=== PATIENT | male | born 1955 | race Caucasian/White ===

== ENCOUNTER 2016-07-15 12:21 | Emergency (ER) | payer MEDICARE, MEDICAID ==
[~2016-07-15] VITALS: Ht 177.8 cm; Wt 77.1 kg
[~2016-07-15 12:21] MED LIST: ACETAMINOPHEN325 M1 ORAL; ALLOPURINOL100 M1 ORAL; AMBIEN5 MG ORAL; ASPIRIN81 MG ORAL; ATORVASTATIN CA10 MG ORAL; AVAPRO150 MG ORAL; AZATHIOPRINE50 MG PO; BACTROBAN 2% OI15 GM TOPIC; BICITRA30 ML ORAL; BICITRA30 ML PO; COLACE100 MG ORAL; COUMADIN4 MG ORAL; COUMADIN6 MG ORAL; CYMBALTA20 MG ORAL; CYMBALTA30 MG ORAL; CYTRA-2 ORAL S473 ML PO; DOCUSATE SODIU100 MG ORAL; DOXYCYCLINE HY100 M6 PO; DUONEB 0.5 MG-33 ML INH; DUONEB 0.5-3(2.53 ML HHN; EPOETIN ALFA SUBQ; EPOGEN10000 UNIT SUBQ; FLAGYL500 MG ORAL; FLOMAX0.4 MG ORAL; GUAIFENESI100 MG/5 M PO; HEPARIN1000 UNIT/ SUBQ; HUMALOG100 UNIT/4 SUBQ; IMURAN50 MG ORAL; LANTUS SOL100 UNIT/1 SUBQ; LANTUS5 UNITS SUBQ; LEVAQUIN500 MG ORAL; LEVEMIR FL100 UNIT/1 SUBQ; LIPITOR10 MG ORAL; LOPRESSOR25 M1 ORAL; METOPROLOL SUCC50 MG ORAL; METOPROLOL TART25 MG ORAL; METOPROLOL TART50 MG ORAL; MIRALAX17 GM ORAL; NEPHROCAPS QT1 EACH PO; NORVASC5 MG ORAL; NOVOLOG100 UNIT/3 SUBQ; NOVOLOG100 UNIT/4 SUBQ; NOVOLOG100 UNITS1 SUBQ; PROCRIT10000 UNIT SUBQ; PROTONIX40 MG ORAL; QUETIAPINE FUMA25 MG ORAL; RENVELA0.8 GM ORAL; RENVELA800 MG ORAL; ROBITUSSIN DM5 ML PO; SEROQUEL25 MG ORAL; SIMVASTATIN40 MG ORAL; TOPROL XL50 MG ORAL; TYLENOL EXTRA500 MG ORAL; TYLENOL100 MG/11 PO; TYLENOL650 MG/20. ORAL; VIBRAMYCIN100 MG ORAL; VITAMIN D1000 UNI1 ORAL; VITAMIN D35000 UNI2 PO; VITAMIN D350000 UNIT PO; WARFARIN SODIUM1 MG ORAL; WARFARIN SODIUM3 MG ORAL; WARFARIN SODIUM4 MG ORAL; Warfarin RX monitoring MISC; ZOFRAN4 M1 ORAL; ZOFRAN4 MG IV; ZOFRAN4 MG ORAL
[2016-07-15] MEDS ORDERED: ATORVASTATIN CA10 MG ORAL (13:17)
[2016-07-15] MEDS ORDERED: VITAMIN D400 INTLU ORAL (13:17)
[2016-07-15] MEDS ORDERED: FERROUS SULFAT325 MG ORAL (13:17)
[2016-07-15] MEDS ORDERED: AZATHIOPRINE50 MG PO (13:17)
[2016-07-15 13:23] LABS: BASOPHILS % (AUTO) 0.9 % (0.0-2.0); EOSINOPHILS % (AUTO) 3.4 % (0.0-3.0); LYMPHOCYTES % (AUTO) 23.3 % (20.0-45.0); MEAN CORPUSCULAR HEMOGLOBIN 32.1 PG (27.0-31.0); MEAN CORPUSCULAR HGB CONC 31.7 G/DL (32.0-36.0); MEAN CORPUSCULAR VOLUME 101 FL (80-99); MEAN PLATELET VOLUME 6.8 FL (6.5-10.1); MONOCYTES % (AUTO) 7.9 % (1.0-10.0); NEUTROPHILS % (AUTO) 64.5 % (45.0-75.0); PLATELET COUNT 183 K/UL (150-450); RED BLOOD COUNT 3.05 M/UL (4.70-6.10); RED CELL DISTRIBUTION WIDTH 14.5 % (11.6-14.8); WHITE BLOOD COUNT 7.3 K/UL (4.8-10.8)
[2016-07-15 13:34] LABS: TROPONIN I < 0.30 ng/mL (<=0.30)
[2016-07-15 13:37] LABS: ALANINE AMINOTRANSFERASE 13 U/L (3-41); ALBUMIN/GLOBULIN RATIO 1.2 (1.0-2.7); ANION GAP 16 (5-15); ASPARTATE AMINO TRANSFERASE 14 U/L (5-40); CALCIUM 9.1 mg/dL (8.6-10.2); CARBON DIOXIDE 23 mEQ/L (20-30); CHLORIDE 103 mEQ/L (98-107); CREATININE 4.4 mg/dL (0.7-1.2); GLOMERULAR FILTRATION RATE 13.7 mL/min (>60); HEMOLYSIS 6; POTASSIUM 4.7 mEQ/L (3.4-4.9); SODIUM 142 mEQ/L (135-145); TOTAL PROTEIN 6.4 g/dL (6.6-8.7)
[2016-07-15 13:48] LABS: CKMB 1.7 ng/mL (< 6.7)
[2016-07-15 13:56] VITALS: BP 153/81
[2016-07-15 14:32] LABS: PROTHROMBIN TIME > 100.0 SEC (9.30-11.50)
[2016-07-15 14:34] LABS: INR > 10.0 (0.9-1.1); PARTIAL THROMBOPLASTIN TIME 37 SEC (23-33)
[2016-07-15 17:15] VITALS: BP 129/76
--- NOTE | 2016-07-16 02:07 | Emergency Room Report ---
History of Present Illness General Chief Complaint: Abnormal Labs Source: Patient, EMS Present Illness HPI Patient sent in for evaluation of kidney function (based on labs) at [facility]. He denies all sy. Post renal failure with dialysis transiently (25 years ago) and then renal transplant. No problems with renal transplant. Has elevated creat. Piror insulin OD. Diabetes. L eye implant. Allergies: Coded Allergies: CEFEPIME (Verified Allergy, Intermediate, Rash, 01/23/13) Uncoded Allergies: CEFEPHINE (Allergy, Mild, 04/11/15) Patient History Past Medical History: see triage record Social History: Denies: smoking Social History Narrative b and C Reviewed Nursing Documentation: PMH: Agreed, PSxH: Agreed Nursing Documentation-PMH Hx Cardiac Problems: Yes - NSTEMI x3, CAD Hx Hypertension: Yes Hx Pacemaker: No Hx Asthma: Yes Hx Diabetes: Yes - DKA Hx Cancer: No Hx Gastrointestinal Problems: Yes - Gastritis Hx Cerebrovascular Accident: No Hx Transient Ischemic Attacks: No Hx Dementia: No Hx Alzheimer's Disease: No Hx Parkinson's Disease: No Hx Meningitis: No Hx Encephalitis: Yes - 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 ATTEMPT Hx Seizures: No Hx Epilepsy: No Hx Multiple Sclerosis: No Hx Cerebral Palsy: No Hx Amyotrophic Lat Sclerosis: No Hx Guillian-[place] Syndrome: No Hx Paralysis: No Hx Peripheral Neuropathy: No Hx Spinal Cord Injury: No Hx Head Trauma: No Hx Traumatic Brain Injury: No Hx Memory Loss: No Hx Concentration Difficulty: No Hx Speech Problem: No Hx Tremors: No Hx Vertigo: No Hx Dizziness: Yes Hx Syncope: No Hx Headaches: No Hx Aphasia: No Hx Dysphasia: No Hx Numbness: No Hx Weakness: No Hx Fatigue: No Hx Neurologic Surgery: No Hx Brain Shunt: No Review of Systems All Other Systems: negative except mentioned in HPI Physical Exam Vital Signs Date Time Temp Pulse Resp B/P Pulse Ox O2 Delivery O2 Flow Rate FiO2 07/15/16 12:21 97.5 63 16 153/81 100 Room Air Sp02 EP Interpretation: reviewed, normal General Appearance: well appearing, no apparent distress Head: normocephalic, atraumatic Eyes: left eye other - implant ENT: hearing grossly normal, normal voice Neck: full range of motion, supple Respiratory: no respiratory distress, speaking full sentences Gastrointestinal: normal inspection, normal bowel sounds, non tender, soft, non -distended, other - I cannot feel kidney (also no pain) Musculoskeletal: gait/station normal, normal range of motion, no calf tenderness Neurologic: alert - grossly normal (with glass eye L), normal gait Psychiatric: mood/affect normal Skin: no rash Medical Decision Making Diagnostic Impression: Primary Impression: Renal insufficiency Additional Impressions: History of simultaneous kidney and pancreas transplant Excessive anticoagulation ER Course Patient asymptomatic sent for eval of renal function. Labs ordered. Renal function is stable and unchanged for many years. Patient stable for outpatient evaluation and treatment. INR returned after patient discharged. H/H slightly less than previous. Will contact PMD to have repeat INR and coumadin held. Contacted [facility] to hold coumadin. Laboratory Tests Test 07/15/16 13:00 White Blood Count 7.3 K/UL (4.8-10.8) Red Blood Count 3.05 M/UL (4.70-6.10) L Hemoglobin 9.8 G/DL (14.2-18.0) L Hematocrit 30.9 % (42.0-52.0) L Mean Corpuscular Volume 101 FL (80-99) H Mean Corpuscular Hemoglobin 32.1 PG (27.0-31.0) H Mean Corpuscular Hemoglobin Concent 31.7 G/DL (32.0-36.0) L Red Cell Distribution Width 14.5 % (11.6-14.8) Platelet Count 183 K/UL (150-450) Mean Platelet Volume 6.8 FL (6.5-10.1) Neutrophils (%) (Auto) 64.5 % (45.0-75.0) Lymphocytes (%) (Auto) 23.3 % (20.0-45.0) Monocytes (%) (Auto) 7.9 % (1.0-10.0) Eosinophils (%) (Auto) 3.4 % (0.0-3.0) H Basophils (%) (Auto) 0.9 % (0.0-2.0) Prothrombin Time > 100.0 SEC (9.30-11.50) H Prothrombin Time INR > 10.0 (0.9-1.1) *H PTT 37 SEC (23-33) H Sodium Level 142 mEQ/L (135-145) Potassium Level 4.7 mEQ/L (3.4-4.9) Chloride Level 103 mEQ/L (98-107) Carbon Dioxide Level 23 mEQ/L (20-30) Anion Gap 16 (5-15) H Blood Urea Nitrogen 76 mg/dL (7-23) H Creatinine 4.4 mg/dL (0.7-1.2) H Estimate Glomerular Filtration Rate 13.7 mL/min (>60) Glucose Level 236 mg/dL (74-106) H Calcium Level 9.1 mg/dL (8.6-10.2) Total Bilirubin < 0.2 mg/dL (0.0-1.2) Aspartate Amino Transferase (AST) 14 U/L (5-40) Alanine Aminotransferase (ALT) 13 U/L (3-41) Alkaline Phosphatase 84 U/L (40-129) Total Creatine Kinase 80 U/L (38-174) Creatine Kinase MB 1.7 ng/mL (< 6.7) Creatine Kinase MB Relative Index 2.1 Troponin I < 0.30 ng/mL (<=0.30) Pro-B-Type Natriuretic Peptide 445 pg/mL (0-125) H Total Protein 6.4 g/dL (6.6-8.7) L Albumin 3.6 g/dL (3.5-5.2) Globulin 2.8 g/dL Albumin/Globulin Ratio 1.2 (1.0-2.7) EKG Diagnostic Results Rate: normal Rhythm: NSR ST Segments: no acute changes Rhythm Strip Diag. Results EP Interpretation: yes Rhythm: NSR, no PVC's, no ectopy Chest X-Ray Diagnostic Results EP Interpretation: Yes Findings: no consolidation, no effusion, no pneumothorax, no acute cardiopulmonary disease Number of Views: 1 Last Vital Signs Date Time Temp Pulse Resp B/P Pulse Ox O2 Delivery O2 Flow Rate FiO2 07/15/16 17:15 97.5 75 14 129/76 100 Room Air Status: improved Disposition: ASSISTED LIVING Condition: Stable Referrals: Christopher Rosado MD (PCP) Patient Instructions: Chronic Kidney Disease Additional Instructions: Follow up with your kidney doctors. William Arroyo M.D. Jul 16, 2016 02:07
--- NOTE | 2016-07-19 10:32 | Diagnostic Imaging Report ---
Indication: Chest pain Technique: One view of the chest Comparison: 04/11/2015 Findings: Interim placement left arm PICC, tip projecting at the level of the mid superior vena cava. Lungs and pleural spaces remain clear. Heart size is normal Impression: No acute process PICC
--- NOTE | 2016-07-19 15:07 | Cardiology Report ---
APPROVED REPORT EKG Measurement Heart [id number] Normal sinus rhythm Left axis deviation Abnormal ECG
== END 2016-07-15 17:15 | disposition home or self-care (01) ==
LOC: EDBD 12:21 → EDUNIT# 12:21 → EMR 13:20
DX: N28.9 Disorder of kidney and ureter, unspecified (principal); R79.1 Abnormal coagulation profile; Z94.0 Kidney transplant status; Z94.83 Pancreas transplant status; I10 Essential (primary) hypertension; J45.909 Unspecified asthma, uncomplicated; E11.9 Type 2 diabetes mellitus without complications
CPT/HCPCS: 36415; 71010; 80053; 82550; 82553; 83880; 84484; 85025; 85610; 85730; 93005; 99283

== ENCOUNTER → 2016-08-25 | Outpatient (CLI) | payer MEDICARE, MEDICAID ==
[~2016-08-25] VITALS: Ht 30.5 cm; Wt 0.5 kg
[~2016-08-25] MED LIST changes: +FERROUS SULFAT325 MG ORAL; +Heparin 2000 units/Ns 1000ml INJ ONE; +Lidocaine 1% Plain 30 ml INJ ONE; +Sodium Bicarbonate 8.4% 50ml Inj IV ONE; +VITAMIN D400 INTLU ORAL
--- NOTE | 2016-08-26 13:30 | Diagnostic Imaging Report ---
Indications: Long-term central IV access required for intravenous therapy Technique: The procedure indications, risks, and alternatives were explained to the patient who understands and gives consent to proceed. Strict aseptic technique was utilized, including hand washing, use of hat and mask, use of sterile gown and gloves, sterile ultrasound gel and probe cover, prepping of right arm skin with 2% chlorhexidine solution, and application of full body sterile barrier over this area. Skin and subcutaneous soft tissues were infiltrated with 1% lidocaine and sodium bicarbonate. A small dermatotomy was made, through which the patent adequate size right basilic vein was punctured percutaneously under direct sonographic guidance with a 21-gauge needle. Exchange was made over a 0.018 inch guidewire for a 5 [place] peel-away sheath. A Biletu-PICC 5 [place] dual lumen central venous catheter was cut to appropriate length, then advanced through the sheath over the guidewire under direct fluoroscopic guidance into the right subclavian vein, central to which it could not be advanced. Nonionic iodine contrast was injected through the second catheter port and digital subtraction images of the right subclavian and brachiocephalic veins obtained. A second 0.018 inch guidewire was advanced through the second catheter port under direct fluoroscopic guidance into the superior vena cava, over which the catheter was successfully advanced to the cavoatrial junction. Guidewires and sheath were removed. Both catheter ports were aspirated, then flushed with heparinized saline. Final spot film image was obtained. Catheter was secured the skin with adhesive dressing. Patient tolerated procedure well without immediate complications. Total fluoroscopy time: 1.3 minutes. Dose-area product: 71 dGy-cm2 Findings: Right subclavian and radiocephalic veins, superior vena cava patent and apparently normal in caliber without intraluminal filling defect, though there is moderate collateral venous opacification emanating from the right subclavian vein. Final image demonstrates tip of the central venous catheter at the level of superior vena cava-right atrial junction, ordering cm in from the skin. Both ports aspirate and flush freely. IMPRESSION: Patent right upper extremity central veins without obvious flow-limiting abnormality Placement of peripherally inserted central venous catheter via right basilic vein, working well.
== END | disposition home or self-care (01) ==
LOC: RAD 13:34
DX: Z79.899 Other long term (current) drug therapy (principal)
CPT/HCPCS: 36569; 75820; 76937; J1644; J2001; J3490

== ENCOUNTER 2016-12-25 09:17 | Emergency (ER) | payer MEDICARE, MEDICAID ==
[~2016-12-25] VITALS: Ht 175.3 cm; Wt 83.9 kg
[~2016-12-25 09:17] MED LIST changes: -Heparin 2000 units/Ns 1000ml INJ ONE; -Lidocaine 1% Plain 30 ml INJ ONE; -Sodium Bicarbonate 8.4% 50ml Inj IV ONE
--- NOTE | 2016-12-25 10:24 | Emergency Room Report ---
History of Present Illness General Chief Complaint: Abdominal Pain Source: Patient, EMS Present Illness HPI Patient presents from a long-term facility. Yesterday he had a fall at a doctor's appointment when he states he tripped and fell onto his right side. He states that yesterday he felt fine after the fall. However, when he woke up today he had pain on his right flank area. He denies head injury or trauma. He denies headache or neck pain. He denies chest pain or shortness of breath. He has no other complaints. Allergies: Coded Allergies: CEFEPIME (Verified Allergy, Intermediate, Rash, 01/23/13) Patient History Past Medical History: see triage record, old chart reviewed, DM, HTN, PR, CAD, psych hx, renal disease, other Past Surgical History: other - Hx of renal transplant, chronic anemia, chronic DVT Social History: Denies: alcohol use, drug use, smoking Reviewed Nursing Documentation: PMH: Agreed, PSxH: Agreed Nursing Documentation-PMH Hx Cardiac Problems: Yes - NSTEMI x3, CAD Hx Hypertension: Yes Hx Pacemaker: No Hx Asthma: Yes Hx Diabetes: Yes - DKA Hx Cancer: No Hx Gastrointestinal Problems: Yes - Gastritis Hx Cerebrovascular Accident: No Hx Transient Ischemic Attacks: No Hx Dementia: No Hx Alzheimer's Disease: No Hx Parkinson's Disease: No Hx Meningitis: No Hx Encephalitis: Yes - 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 ATTEMPT Hx Seizures: No Hx Epilepsy: No Hx Multiple Sclerosis: No Hx Cerebral Palsy: No Hx Amyotrophic Lat Sclerosis: No Hx Guillian-[place] Syndrome: No Hx Paralysis: No Hx Peripheral Neuropathy: No Hx Spinal Cord Injury: No Hx Head Trauma: No Hx Traumatic Brain Injury: No Hx Memory Loss: No Hx Concentration Difficulty: No Hx Speech Problem: No Hx Tremors: No Hx Vertigo: No Hx Dizziness: Yes Hx Syncope: No Hx Headaches: No Hx Aphasia: No Hx Dysphasia: No Hx Numbness: No Hx Weakness: No Hx Fatigue: No Hx Neurologic Surgery: No Hx Brain Shunt: No Review of Systems All Other Systems: negative except mentioned in HPI Physical Exam Vital Signs Date Time Temp Pulse Resp B/P Pulse Ox O2 Delivery O2 Flow Rate FiO2 12/25/16 09:19 97.3 60 18 162/81 97 Room Air Sp02 EP Interpretation: reviewed, normal General Appearance: no apparent distress, alert, GCS 15, non-toxic Head: normocephalic, atraumatic ENT: hearing grossly normal, normal pharynx, no angioedema, normal voice Neck: full range of motion, supple/symm/no masses Respiratory: lungs clear, normal breath sounds, no respiratory distress, no retraction, no accessory muscle use, speaking full sentences, other - TTP along the R. lower rib cage and flank. 6cm x 4cm area of ecchymosis on L. flank mid- axillary distally over ribcage. Cardiovascular #1: regular rate, rhythm, no edema Gastrointestinal: normal bowel sounds, non tender, soft, non-distended, no guarding, no rebound Rectal: deferred Musculoskeletal: back normal, gait/station normal, normal range of motion, non- tender Neurologic: alert, oriented x3, responsive, motor strength/tone normal, sensory intact, speech normal Psychiatric: judgement/insight normal, memory normal, mood/affect normal, no suicidal/homicidal ideation Skin: no rash, warm/dry, well hydrated, other - See RESP exam Medical Decision Making Diagnostic Impression: Primary Impression: Fall Additional Impressions: Chronic renal failure Multiple contusions of trunk ER Course This patient presented from a long-term facility secondary to flank pain after a fall. The patient is anticoagulated on Coumadin and so I felt I should obtain a CT of the abdomen and pelvis to rule out intra-abdominal injury. CT of the abdomen and pelvis was negative. Also negative was the head CT. Of note , the CT was limited due to the fact that the patient has chronic renal failure and is unable to give IV contrast at this time he. At this time, I did not identify an emergency medical condition. The patient is returned to the long-term facility. Labs Test 12/25/16 10:50 12/25/16 14:15 White Blood Count 7.1 K/UL (4.8-10.8) Red Blood Count 3.15 M/UL (4.70-6.10) Hemoglobin 10.0 G/DL (14.2-18.0) Hematocrit 30.2 % (42.0-52.0) Mean Corpuscular Volume 96 FL (80-99) Mean Corpuscular Hemoglobin 31.8 PG (27.0-31.0) Mean Corpuscular Hemoglobin Concent 33.3 G/DL (32.0-36.0) Red Cell Distribution Width 13.5 % (11.6-14.8) Platelet Count 167 K/UL (150-450) Mean Platelet Volume 6.6 FL (6.5-10.1) Neutrophils (%) (Auto) 75.9 % (45.0-75.0) Lymphocytes (%) (Auto) 16.0 % (20.0-45.0) Monocytes (%) (Auto) 6.5 % (1.0-10.0) Eosinophils (%) (Auto) 1.1 % (0.0-3.0) Basophils (%) (Auto) 0.4 % (0.0-2.0) Prothrombin Time 24.2 SEC (9.30-11.50) Prothromb Time International Ratio 2.3 (0.9-1.1) Activated Partial Thromboplast Time 46 SEC (23-33) Sodium Level 134 mEQ/L (135-145) Potassium Level 5.5 mEQ/L (3.4-4.9) 4.8 mEQ/L (3.4-4.9) Chloride Level 98 mEQ/L (98-107) Carbon Dioxide Level 19 mEQ/L (20-30) Anion Gap 17 (5-15) Blood Urea Nitrogen 72 mg/dL (7-23) Creatinine 4.5 mg/dL (0.7-1.2) Estimat Glomerular Filtration Rate 13.3 mL/min (>60) Glucose Level 352 mg/dL (74-106) Calcium Level 9.0 mg/dL (8.6-10.2) Total Bilirubin 0.3 mg/dL (0.0-1.2) Aspartate Amino Transf (AST/SGOT) 16 U/L (5-40) Alanine Aminotransferase (ALT/SGPT) 12 U/L (3-41) Alkaline Phosphatase 84 U/L (40-129) Total Protein 6.5 g/dL (6.6-8.7) Albumin 3.7 g/dL (3.5-5.2) Globulin 2.8 g/dL Albumin/Globulin Ratio 1.3 (1.0-2.7) EKG Diagnostic Results Rate: normal Rhythm: NSR ST Segments: no acute changes Other Impression LAFB Rhythm Strip Diag. Results EP Interpretation: yes Rate: 60's Rhythm: NSR, no PVC's, no ectopy CT/MRI/US Diagnostic Results CT/MRI/US Diagnostic Results : Imaging Test Ordered: CT abd/pelvis, CT head Impression CT of the abdomen and pelvis: No acute findings. See official report. CT of the head: No acute findings. See official report. Last Vital Signs Date Time Temp Pulse Resp B/P Pulse Ox O2 Delivery O2 Flow Rate FiO2 12/25/16 09:19 97.3 60 18 162/81 97 Room Air Disposition: HOME, SELF-CARE Condition: Stable Referrals: Christopher Rosado MD (PCP) MAIN MCNEAL D.O. Dec 25, 2016 10:24
[2016-12-25 11:22] LABS: BASOPHILS % (AUTO) 0.4 % (0.0-2.0); EOSINOPHILS % (AUTO) 1.1 % (0.0-3.0); MEAN CORPUSCULAR HEMOGLOBIN 31.8 PG (27.0-31.0); MEAN CORPUSCULAR HGB CONC 33.3 G/DL (32.0-36.0); MEAN CORPUSCULAR VOLUME 96 FL (80-99); MEAN PLATELET VOLUME 6.6 FL (6.5-10.1); MONOCYTES % (AUTO) 6.5 % (1.0-10.0); NEUTROPHILS % (AUTO) 75.9 % (45.0-75.0); PLATELET COUNT 167 K/UL (150-450); RED BLOOD COUNT 3.15 M/UL (4.70-6.10); RED CELL DISTRIBUTION WIDTH 13.5 % (11.6-14.8); WHITE BLOOD COUNT 7.1 K/UL (4.8-10.8)
[2016-12-25 11:28] LABS: INR 2.3 (0.9-1.1); PROTHROMBIN TIME 24.2 SEC (9.30-11.50)
[2016-12-25 12:56] LABS: ALBUMIN/GLOBULIN RATIO 1.3 (1.0-2.7); CREATININE 4.5 mg/dL (0.7-1.2); GLOMERULAR FILTRATION RATE 13.3 mL/min (>60); POTASSIUM 5.5 mEQ/L (3.4-4.9); TOTAL PROTEIN 6.5 g/dL (6.6-8.7)
[2016-12-25 13:26] VITALS: BP 148/68
[2016-12-25 16:26] VITALS: BP 152/60
[2016-12-25 19:15] VITALS: BP 136/67
[2016-12-25 20:00] VITALS: BP 170/91
== END 2016-12-25 20:00 | disposition home or self-care (01) ==
LOC: EDUNIT# 09:17 → EDBD 09:17 → EMR 09:35 → EDBEDREQ 14:57 → CANBEDREQ 15:38 → EMR 20:00
DX: S30.1XXA Contusion of abdominal wall, initial encounter (principal); S20.211A Contusion of right front wall of thorax, initial encounter; S40.022A Contusion of left upper arm, initial encounter; W01.0XXA Fall on same level from slipping, tripping and stumbling without subsequent striking against object, initial encounter; Y92.89 Other specified places as the place of occurrence of the external cause; I12.9 Hypertensive chronic kidney disease with stage 1 through stage 4 chronic kidney disease, or unspecified chronic kidney disease; N18.9 Chronic kidney disease, unspecified; E11.9 Type 2 diabetes mellitus without complications; I25.10 Atherosclerotic heart disease of native coronary artery without angina pectoris; I25.2 Old myocardial infarction; Z86.718 Personal history of other venous thrombosis and embolism; J45.909 Unspecified asthma, uncomplicated; Z79.01 Long term (current) use of anticoagulants
CPT/HCPCS: 36415; 70450; 74176; 80053; 84132; 85025; 85610; 85730; 93005; 96374

== ENCOUNTER 2017-04-08 23:48 | Emergency (ER) | payer MEDICAID, MEDICARE ==
[~2017-04-08] VITALS: Ht 175.3 cm; Wt 90.7 kg
--- NOTE | 2017-04-09 00:51 | Emergency Room Report ---
History of Present Illness General Chief Complaint: Abnormal Labs Source: Patient, EMS Present Illness HPI 62-year-old male coming from nursing facility, history of diabetes, COPD, hypertension, presenting with low blood sugar Patient states that he was given his insulin this evening, [facility] states that his BGM was noted to be 33, he was given 1 amp D50, was then 150 in the field. Here in the ED patient's blood sugar was 238 Patient not complaining of any chest pain shortness of breath dizziness headache nausea vomiting abdominal pain Allergies: Coded Allergies: CEFEPIME (Verified Allergy, Intermediate, Rash, 01/23/13) Patient History Past Medical History: see triage record Past Surgical History: none Pertinent Family History: none Reviewed Nursing Documentation: PMH: Agreed, PSxH: Agreed Nursing Documentation-PMH Hx Cardiac Problems: Yes - NSTEMI x3, CAD Hx Hypertension: Yes Hx Pacemaker: No Hx Asthma: Yes Hx Diabetes: Yes - DKA Hx Cancer: No Hx Gastrointestinal Problems: Yes - Gastritis Hx Cerebrovascular Accident: No Hx Transient Ischemic Attacks: No Hx Dementia: No Hx Alzheimer's Disease: No Hx Parkinson's Disease: No Hx Meningitis: No Hx Encephalitis: Yes - 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 ATTEMPT Hx Seizures: No Hx Epilepsy: No Hx Multiple Sclerosis: No Hx Cerebral Palsy: No Hx Amyotrophic Lat Sclerosis: No Hx Guillian-[place] Syndrome: No Hx Paralysis: No Hx Peripheral Neuropathy: No Hx Spinal Cord Injury: No Hx Head Trauma: No Hx Traumatic Brain Injury: No Hx Memory Loss: No Hx Concentration Difficulty: No Hx Speech Problem: No Hx Tremors: No Hx Vertigo: No Hx Dizziness: Yes Hx Syncope: No Hx Headaches: No Hx Aphasia: No Hx Dysphasia: No Hx Numbness: No Hx Weakness: No Hx Fatigue: No Hx Neurologic Surgery: No Hx Brain Shunt: No Review of Systems All Other Systems: negative except mentioned in HPI Physical Exam Vital Signs Date Time Temp Pulse Resp B/P (MAP) Pulse Ox O2 Delivery O2 Flow Rate FiO2 04/09/17 00:02 97.3 60 20 160/81 99 Room Air Sp02 EP Interpretation: reviewed, normal General Appearance: normal inspection, well appearing, no apparent distress, alert, GCS 15, non-toxic Head: normocephalic, atraumatic Eyes: bilateral eye normal inspection, bilateral eye PERRL, bilateral eye EOMI ENT: normal ENT inspection, normal pharynx, normal voice, moist mucus membranes Neck: normal inspection, full range of motion, supple Respiratory: normal inspection, lungs clear, normal breath sounds, no respiratory distress, no retraction, no wheezing, speaking full sentences, chest symmetrical Cardiovascular #1: normal inspection, regular rate, rhythm, no edema, normal capillary refill Cardiovascular #2: 2+ radial (R), 2+ radial (L) Gastrointestinal: normal inspection, non tender, soft, non-distended, no guarding Genitourinary: no CVA tenderness Musculoskeletal: normal inspection, back normal, normal range of motion, non- tender, other - R sided picc line Neurologic: normal inspection, alert, oriented x3, responsive, motor strength/ tone normal, sensory intact, normal gait, speech normal Psychiatric: normal inspection, judgement/insight normal, memory normal Skin: normal inspection, normal color, no rash, warm/dry, well hydrated, normal turgor Medical Decision Making Diagnostic Impression: Primary Impression: Hypoglycemia ER Course 62-year-old male with hypoglycemia Noted to be normal upon arrival to the emergency room Plan: Serial Accu-Cheks Anticipate discharge as patient appears clinically well no complaints ER course: accucheck >200 x 2 times in ED no complaints in ED VSS NAD will dc back to snf Disposition: Patient is to be discharged to SNF Patient is instructed to follow up with their primary care doctor within 5 days. Strict return precautions discussed with patient such as fever, chills, worsening/severe pain, nausea, vomiting, which may indicate severe illness. Patient verbalizes understanding and agrees with plan. Please note that this Emergency Department Report was dictated using [email or web address] cleaner technology software, occasionally this can lead to erroneous entry secondary to interpretation by the dictation equipment Rhythm Strip Diag. Results EP Interpretation: yes Rate: 63 Rhythm: NSR, no PVC's, no ectopy Last Vital Signs Date Time Temp Pulse Resp B/P (MAP) Pulse Ox O2 Delivery O2 Flow Rate FiO2 04/09/17 00:02 97.3 60 20 160/81 99 Room Air Disposition: XFER SNF Condition: Improved Referrals: Christopher Rosado MD (PCP) Emerson Buenrostro M.D. Apr 09, 2017 00:51
[2017-04-09 05:04] VITALS: BP 135/91
== END 2017-04-09 05:18 ==
LOC: EDBD 23:48 → EMR 04-09 00:23
DX: E11.649 Type 2 diabetes mellitus with hypoglycemia without coma (principal); Z79.4 Long term (current) use of insulin; E13.10 Other specified diabetes mellitus with ketoacidosis without coma; I25.10 Atherosclerotic heart disease of native coronary artery without angina pectoris; I10 Essential (primary) hypertension; J45.909 Unspecified asthma, uncomplicated; K29.70 Gastritis, unspecified, without bleeding; G93.40 Encephalopathy, unspecified; R42 Dizziness and giddiness
CPT/HCPCS: 82962; 99283

== ENCOUNTER 2017-04-09 11:42 | Emergency (ER) | payer MEDICARE ==
[~2017-04-09] VITALS: Ht 180.3 cm; Wt 77.1 kg
[2017-04-09 11:53] VITALS: BP 154/76
--- NOTE | 2017-04-09 12:31 | Diagnostic Imaging Report ---
Indication: Chest pain Technique: One view of the chest Comparison: 07/15/2016 Findings: The lungs and pleural spaces are clear. Heart size is normal. There is a right arm catheter, tip at the cavoatrial junction. There is mild central bronchial wall thickening. Impression: No acute process
[2017-04-09 12:39] LABS: BASOPHILS % (AUTO) 0.8 % (0.0-2.0); EOSINOPHILS % (AUTO) 2.4 % (0.0-3.0); LYMPHOCYTES % (AUTO) 20.5 % (20.0-45.0); MEAN CORPUSCULAR HEMOGLOBIN 31.5 PG (27.0-31.0); MEAN CORPUSCULAR HGB CONC 32.6 G/DL (32.0-36.0); MEAN CORPUSCULAR VOLUME 97 FL (80-99); MEAN PLATELET VOLUME 7.3 FL (6.5-10.1); MONOCYTES % (AUTO) 8.3 % (1.0-10.0); PLATELET COUNT 204 K/UL (150-450); RED BLOOD COUNT 3.34 M/UL (4.70-6.10); RED CELL DISTRIBUTION WIDTH 13.4 % (11.6-14.8); WHITE BLOOD COUNT 9.3 K/UL (4.8-10.8)
[2017-04-09 12:51] LABS: ALBUMIN/GLOBULIN RATIO 1.4 (1.0-2.7); CALCIUM 8.9 mg/dL (8.6-10.2); CREATININE 4.4 mg/dL (0.7-1.2); GLOMERULAR FILTRATION RATE 13.7 mL/min (>60); POTASSIUM 4.3 mEQ/L (3.4-4.9); TOTAL PROTEIN 6.5 g/dL (6.6-8.7)
--- NOTE | 2017-04-09 13:12 | Emergency Room Report ---
History of Present Illness General Chief Complaint: Abnormal Labs Source: Patient, Medical Record, EMS, PMD Present Illness HPI [id number] sent from SNF for elevated glucose Per Dr Rosado was >400 but patient endorses he just had a "big breakfast." Patient has no complaints Denies abd pain, nausea/vomiting, chest pain, SOB, fever/chills Patient was JUST discharged from ED 12 hours prior after being sent for LOW blood sugar. Was allegedly 30s. Had multiple checks in 200s level in ED during last night's stay and then DC back to SNF Allergies: Coded Allergies: CEFEPIME (Verified Allergy, Intermediate, Rash, 01/23/13) Patient History Past Medical History: DM Past Surgical History: none Pertinent Family History: none Immunizations: UTD Reviewed Nursing Documentation: PMH: Agreed, PSxH: Agreed Nursing Documentation-PMH Hx Cardiac Problems: Yes - NSTEMI x3, CAD Hx Hypertension: Yes Hx Pacemaker: No Hx Asthma: Yes Hx Diabetes: Yes - DKA Hx Cancer: No Hx Gastrointestinal Problems: Yes - Gastritis Hx Cerebrovascular Accident: No Hx Transient Ischemic Attacks: No Hx Dementia: No Hx Alzheimer's Disease: No Hx Parkinson's Disease: No Hx Meningitis: No Hx Encephalitis: Yes - 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 ATTEMPT Hx Seizures: No Hx Epilepsy: No Hx Multiple Sclerosis: No Hx Cerebral Palsy: No Hx Amyotrophic Lat Sclerosis: No Hx Guillian-[place] Syndrome: No Hx Paralysis: No Hx Peripheral Neuropathy: No Hx Spinal Cord Injury: No Hx Head Trauma: No Hx Traumatic Brain Injury: No Hx Memory Loss: No Hx Concentration Difficulty: No Hx Speech Problem: No Hx Tremors: No Hx Vertigo: No Hx Dizziness: Yes Hx Syncope: No Hx Headaches: No Hx Aphasia: No Hx Dysphasia: No Hx Numbness: No Hx Weakness: No Hx Fatigue: No Hx Neurologic Surgery: No Hx Brain Shunt: No Review of Systems All Other Systems: negative except mentioned in HPI Physical Exam Vital Signs Date Time Temp Pulse Resp B/P (MAP) Pulse Ox O2 Delivery O2 Flow Rate FiO2 04/09/17 11:37 97.9 64 20 170/89 97 Room Air Sp02 EP Interpretation: reviewed, normal General Appearance: normal inspection, well appearing, no apparent distress, alert, GCS 15, non-toxic Head: normocephalic, atraumatic Eyes: bilateral eye PERRL, bilateral eye EOMI ENT: normal ENT inspection, hearing grossly normal, normal voice Neck: normal inspection, full range of motion, supple, no bony tend Respiratory: normal inspection, lungs clear, normal breath sounds, no respiratory distress, no retraction, no wheezing Cardiovascular #1: regular rate, rhythm, no edema Gastrointestinal: normal inspection, normal bowel sounds, non tender, soft, no guarding, no hernia Genitourinary: no CVA tenderness Musculoskeletal: normal inspection, back normal, normal range of motion, Mary Anne' s Sign negative Neurologic: normal inspection, alert, oriented x3, responsive, clinical massage therapist III-XII nml as tested, motor strength/tone normal, speech normal Psychiatric: normal inspection, judgement/insight normal, mood/affect normal Skin: normal inspection, normal color, no rash Lymphatic: normal inspection Medical Decision Making Diagnostic Impression: Primary Impression: Abnormal laboratory test result Additional Impression: Acute hyperglycemia ER Course Patient with difficult to control blood sugar CMP shows glucose ~200 here Rest of CMP normal. No AG. No K abnormality. Unlikely DKA Asymptomatic, well appearing Likely d/t dietary indiscretion DC back to SNF Dr Rosado informed EKG Diagnostic Results Rate: normal Rhythm: NSR ST Segments: no acute changes ASA given to the pt in ED: No Rhythm Strip Diag. Results EP Interpretation: yes Rate: 61 Rhythm: NSR, no PVC's, no ectopy Last Vital Signs Date Time Temp Pulse Resp B/P (MAP) Pulse Ox O2 Delivery O2 Flow Rate FiO2 04/09/17 11:53 97.7 64 20 154/76 99 Room Air Status: improved Disposition: [facility] Condition: Improved Referrals: Christopher Rosado MD (PCP) Additional Instructions: - Glucose 223 here at 1230pm. - Patient was also just here LAST NIGHT with multiple normal blood sugar levels and labs ALPHONSE GAN M.D. Apr 09, 2017 13:12
[2017-04-09 14:34] VITALS: BP 152/76
--- NOTE | 2017-05-02 17:52 | Cardiology Report ---
APPROVED REPORT EKG Measurement Heart [id number] Normal sinus rhythm Left axis deviation Septal infarct, age undetermined Abnormal ECG
== END 2017-04-09 14:37 ==
LOC: EDBD 11:42 → EDBEDREQ 11:56 → EMR 12:20 → CANBEDREQ 12:36 → EMR 14:37
DX: E11.65 Type 2 diabetes mellitus with hyperglycemia (principal); E13.10 Other specified diabetes mellitus with ketoacidosis without coma; Z79.4 Long term (current) use of insulin; Z88.1 Allergy status to other antibiotic agents; I25.10 Atherosclerotic heart disease of native coronary artery without angina pectoris; I10 Essential (primary) hypertension; J45.909 Unspecified asthma, uncomplicated; K29.70 Gastritis, unspecified, without bleeding; G93.40 Encephalopathy, unspecified; R42 Dizziness and giddiness
CPT/HCPCS: 36415; 71010; 80053; 82962; 85025; 93005; 99283

== ENCOUNTER 2017-05-31 09:27 | Inpatient (IN) | payer MEDICARE ==
[~2017-05-31] VITALS: Ht 177.8 cm; Wt 90.7 kg
--- NOTE | 2017-05-31 09:42 | Emergency Room Report ---
History of Present Illness General Chief Complaint: Male Urogenital Problems Source: Patient, EMS Present Illness HPI The patient is 62-year-old male sent in by nursing facility after increased hematuria. Patient had prior history of renal disease. Patient states that he previously had a transplant and kidney. Patient had reportedly previously been on dialysis. Patient prior history of encephalopathy. The patient's history a markedly limited by poor historian. The patient denies any complaints this time. Allergies: Coded Allergies: CEFEPIME (Verified Allergy, Intermediate, Rash, 01/23/13) Patient History Past Medical History: see triage record Reviewed Nursing Documentation: PMH: Agreed, PSxH: Agreed Nursing Documentation-PMH Hx Cardiac Problems: Yes - STEMI; CAD Hx Hypertension: Yes Hx Pacemaker: No Hx Asthma: Yes Hx Diabetes: Yes Hx Cancer: Yes - Kidney Hx Gastrointestinal Problems: Yes - GERD History Of Psychiatric Problem: Yes - Major Depressive Disorder Hx Cerebrovascular Accident: Yes Hx Transient Ischemic Attacks: No Hx Dementia: No Hx Alzheimer's Disease: No Hx Parkinson's Disease: No Hx Meningitis: No Hx Encephalitis: Yes - 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 ATTEMPT Hx Seizures: No Hx Epilepsy: No Hx Multiple Sclerosis: No Hx Cerebral Palsy: No Hx Amyotrophic Lat Sclerosis: No Hx [place] Syndrome: No Hx Paralysis: No Hx Peripheral Neuropathy: No Hx Spinal Cord Injury: No Hx Head Trauma: No Hx Traumatic Brain Injury: No Hx Memory Loss: No Hx Concentration Difficulty: No Hx Speech Problem: No Hx Tremors: No Hx Vertigo: No Hx Dizziness: Yes Hx Syncope: No Hx Headaches: No Hx Aphasia: No Hx Dysphasia: No Hx Numbness: No Hx Weakness: No Hx Fatigue: No Hx Neurologic Surgery: No Hx Brain Shunt: No Review of Systems All Other Systems: negative except mentioned in HPI Physical Exam Vital Signs Date Time Temp Pulse Resp B/P (MAP) Pulse Ox O2 Delivery O2 Flow Rate FiO2 05/31/17 09:23 98.1 64 18 172/83 100 Room Air Sp02 EP Interpretation: reviewed, normal General Appearance: normal inspection, well appearing, no apparent distress, alert, GCS 15 Head: atraumatic ENT: normal ENT inspection, hearing grossly normal, normal voice Neck: normal inspection, full range of motion, supple, no bony tend Respiratory: normal inspection, lungs clear, normal breath sounds, no respiratory distress, no retraction, no wheezing Cardiovascular #1: regular rate, rhythm, no edema Gastrointestinal: normal inspection, normal bowel sounds, non tender, soft, no guarding, no hernia Genitourinary: no CVA tenderness Musculoskeletal: normal inspection, back normal, normal range of motion Neurologic: normal inspection, alert, responsive, speech normal Psychiatric: normal inspection, judgement/insight normal, mood/affect normal Skin: normal inspection, normal color, no rash Medical Decision Making Diagnostic Impression: Primary Impression: Acute renal failure (ARF) Additional Impression: UTI (urinary tract infection) ER Course The patient presented for hematuria. Differential diagnosis included was not limited to urinary tract infection, renal cell carcinoma, bladder CA pyelonephritis among others.Because of complexity of patient's case laboratory testing and imaging studies were ordered.Laboratory testing was notable for elevated BUN and creatinine compared to the patient's previous labs. Patient was noted to have prior history of renal transplant. The patient appears to continue to have some evidence of a renal failure. The patient shows no evidence of hyperkalemia. Dr. Christopher Rosado was contacted for inpatient management due to primary physician Labs Test 05/31/17 09:50 White Blood Count 7.9 K/UL (4.8-10.8) Red Blood Count 2.78 M/UL (4.70-6.10) Hemoglobin 9.0 G/DL (14.2-18.0) Hematocrit 28.3 % (42.0-52.0) Mean Corpuscular Volume 102 FL (80-99) Mean Corpuscular Hemoglobin 32.4 PG (27.0-31.0) Mean Corpuscular Hemoglobin Concent 31.8 G/DL (32.0-36.0) Red Cell Distribution Width 14.4 % (11.6-14.8) Platelet Count 195 K/UL (150-450) Mean Platelet Volume 6.6 FL (6.5-10.1) Neutrophils (%) (Auto) 69.7 % (45.0-75.0) Lymphocytes (%) (Auto) 16.3 % (20.0-45.0) Monocytes (%) (Auto) 8.2 % (1.0-10.0) Eosinophils (%) (Auto) 5.1 % (0.0-3.0) Basophils (%) (Auto) 0.8 % (0.0-2.0) Prothrombin Time 15.2 SEC (9.30-11.50) Prothromb Time International Ratio 1.4 (0.9-1.1) Activated Partial Thromboplast Time 37 SEC (23-33) Urine Color Pale yellow Urine Appearance Clear Urine pH 8 (4.5-8.0) Urine Specific [place] 1.010 (1.005-1.035) Urine Protein 2+ (NEGATIVE) Urine Glucose (UA) Negative (NEGATIVE) Urine Ketones Negative (NEGATIVE) Urine Occult Blood 5+ (NEGATIVE) Urine Nitrite Negative (NEGATIVE) Urine Bilirubin Negative (NEGATIVE) Urine Urobilinogen Normal MG/DL (0.0-1.0) Urine Leukocyte Esterase 3+ (NEGATIVE) Urine RBC 20-30 /HPF (0 - 0) Urine WBC 5-10 /HPF (0 - 0) Urine Squamous Epithelial Cells Occasional /LPF Urine Bacteria Few /HPF (NONE) Urine Eosinophils Few Urine Random Sodium 101 MEQ/L (20-110) Urine Potassium Timed 15 mmol/L (12-62) Sodium Level 141 MMOL/L (136-145) Potassium Level 4.6 MMOL/L (3.5-5.1) Chloride Level 109 MMOL/L (98-107) Carbon Dioxide Level 23 MMOL/L (21-32) Anion Gap 9 mmol/L (5-15) Blood Urea Nitrogen 71 mg/dL (7-18) Creatinine 5.6 MG/DL (0.55-1.30) Estimat Glomerular Filtration Rate 10.3 mL/min (>60) Glucose Level 160 MG/DL (74-106) Uric Acid 6.8 MG/DL (2.6-7.2) Calcium Level 8.4 MG/DL (8.5-10.1) Total Bilirubin 0.4 MG/DL (0.2-1.0) Aspartate Amino Transf (AST/SGOT) 15 U/L (15-37) Alanine Aminotransferase (ALT/SGPT) 14 U/L (12-78) Alkaline Phosphatase 85 U/L (46-116) Total Creatine Kinase 86 U/L (26-308) Total Protein 6.6 G/DL (6.4-8.2) Albumin 2.7 G/DL (3.4-5.0) Globulin 3.9 g/dL Albumin/Globulin Ratio 0.7 (1.0-2.7) Last Vital Signs Date Time Temp Pulse Resp B/P (MAP) Pulse Ox O2 Delivery O2 Flow Rate FiO2 05/31/17 09:23 98.1 64 18 172/83 100 Room Air Status: unchanged Disposition: ADMITTED INPATIENT Condition: Serious JamshidGordy May 31, 2017 09:42
[2017-05-31] MEDS ORDERED: OMEPRAZOLE40 M1 ORAL (09:52)
[2017-05-31 10:02] LABS: APPEARANCE,URINE CLEAR; KETONES,URINE NEGATIVE (NEGATIVE); LEUKOCYTE ESTERASE ,URINE 3+ (NEGATIVE); NITRITE,URINE NEGATIVE (NEGATIVE); PH,URINE 8 (4.5-8.0); PROTEIN,URINE 2+ (NEGATIVE); UROBILINOGEN,URINE NORMAL MG/DL (0.0-1.0)
[2017-05-31 10:03] VITALS: BP 171/85
[2017-05-31] MEDS ORDERED: NOVOLOG SS (10:11)
[2017-05-31] MEDS ORDERED: NOVOLOG100 UNITS1 SQ (10:11)
[2017-05-31] MEDS ORDERED: CRANBERRY450 M4 PO (10:11)
[2017-05-31] MEDS ORDERED: LANTUS SOL100 UNIT/1 SUBQ ×2 (10:11)
[2017-05-31 10:16] LABS: BACTERIA,URINE FEW /HPF; RBC,URINE 20-30 /HPF (0 - 0); SQUAMOUS EPITHELIAL CELL,UR OCCASIONAL /LPF (NONE/OCC)
[2017-05-31 10:17] LABS: BASOPHILS % (AUTO) 0.8 % (0.0-2.0); EOSINOPHILS % (AUTO) 5.1 % (0.0-3.0); LYMPHOCYTES % (AUTO) 16.3 % (20.0-45.0); MEAN CORPUSCULAR HEMOGLOBIN 32.4 PG (27.0-31.0); MEAN CORPUSCULAR HGB CONC 31.8 G/DL (32.0-36.0); MEAN CORPUSCULAR VOLUME 102 FL (80-99); MEAN PLATELET VOLUME 6.6 FL (6.5-10.1); MONOCYTES % (AUTO) 8.2 % (1.0-10.0); NEUTROPHILS % (AUTO) 69.7 % (45.0-75.0); PLATELET COUNT 195 K/UL (150-450); RED BLOOD COUNT 2.78 M/UL (4.70-6.10); RED CELL DISTRIBUTION WIDTH 14.4 % (11.6-14.8); WHITE BLOOD COUNT 7.9 K/UL (4.8-10.8)
[2017-05-31 10:34] LABS: ANION GAP 9 mmol/L (5-15); CALCIUM 8.4 MG/DL (8.5-10.1); CARBON DIOXIDE 23 MMOL/L (21-32); CHLORIDE 109 MMOL/L (98-107); CREATININE 5.6 MG/DL (0.55-1.30); GLOMERULAR FILTRATION RATE 10.3 mL/min (>60); POTASSIUM 4.6 MMOL/L (3.5-5.1); SODIUM 141 MMOL/L (136-145)
[2017-05-31 10:39] LABS: ALANINE AMINOTRANSFERASE 14 U/L (12-78); ALBUMIN/GLOBULIN RATIO 0.7 (1.0-2.7); ASPARTATE AMINO TRANSFERASE 15 U/L (15-37); TOTAL PROTEIN 6.6 G/DL (6.4-8.2)
[2017-05-31 10:52] LABS: INR 1.4 (0.9-1.1); PROTHROMBIN TIME 15.2 SEC (9.30-11.50)
[2017-05-31] MEDS ORDERED: Miralax 17gm pkt ORAL PRN (11:15)
[2017-05-31] MEDS ORDERED: Albuterol/Ipratropium 3ml neb HHN PRN (11:15)
[2017-05-31] MEDS ORDERED: Zolpidem 5mg tab ORAL PRN (11:15)
[2017-05-31] MEDS ORDERED: Mylanta II UD 30ml ORAL PRN (11:15)
[2017-05-31] MEDS ORDERED: Morphine Sulfate 2mg/ml Inj IVP PRN (11:15)
[2017-05-31] MEDS: NovoLOG Insulin Flexpen SUBQ SCH ×3 (11:30→20:38)
[2017-05-31 11:56] LABS: URIC ACID 6.8 MG/DL (2.6-7.2)
[2017-05-31] MEDS: Metoprolol Tartrate 50mg tab ORAL SCH ×2 (12:14→20:35)
[2017-05-31 13:30] VITALS: BP 149/78
--- NOTE | 2017-05-31 14:24 | Consultation ---
Consult Note Consult Note asked to eval for renal failure- The patient is 62-year-old male sent in by nursing facility after increased hematuria. Patient had prior history of renal disease. Patient states that he previously had a transplant and kidney. Patient had reportedly previously been on dialysis. Patient prior history of encephalopathy. The patient's history a markedly limited by poor historian. The patient denies any complaints this time. Allergies: CEFEPIME (Verified Allergy, Intermediate, Rash, 01/23/13) Hx Cardiac Problems: Yes - STEMI; CAD Hx Hypertension: Yes Hx Asthma: Yes Hx Diabetes: Yes Hx Cancer: Yes - Kidney Hx Gastrointestinal Problems: Yes - GERD History Of Psychiatric Problem: Yes - Major Depressive Disorder Hx Cerebrovascular Accident: Yes Hx Encephalitis: Yes - 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 ATTEMPT Hx Dizziness: Yes examined- date reviewed- . . Assessment/Plan status: (1) CKD (chronic kidney disease), stage III, superimposed acute- Cr 3.1 a year ago (2) Dehydration- Partly (3) Hyperglycemia due to type 2 diabetes mellitus (4) BPH (benign prostatic hypertrophy) (5) Nephropathy, diabetic (6) History of simultaneous kidney and pancreas transplant (7) UTI (urinary tract infection) (8) Anemia of CKD Plan: Slow Hydrate- BP and BS control- Flomax monitor renal parameters Anemia pan[place] per orders BERT ALONSO May 31, 2017 14:24
[2017-05-31 16:00] VITALS: BP 150/74
--- NOTE | 2017-05-31 16:43 | Consultation ---
History of Present Illness General Date patient seen: May 31, 2017 Chief Complaint: Male Urogenital Problems Referring physician: Dr. Glasgow Reason for Consultation: Hematuria Present Illness HPI Patient is a 62 yo gentle man with pmhx renal osteodystrophy status post renal pancreatic transplant, bilateral nephrectomies in 2014 who presents to [facility] with complaint of dysuria, urgency and hematuria. I was asked to consul on the case from a internal medicine point of view, the patient is a resident of [facility], the patient states his hematuria occured suddenly this morning with his usual void and the patient states it was a profous amount of bright red blood noticed. Patient denies fever or chills, denies light headedness or dizziness, denies hematochezia or melena. Allergies: Coded Allergies: CEFEPIME (Verified Allergy, Intermediate, Rash, 01/23/13) Medication History Scheduled Amlodipine Besylate (Norvasc), 5 MG ORAL DAILY, (Reported) Aspirin* (Aspirin*), 81 MG ORAL DAILY Atorvastatin Calcium* (Lipitor*), 10 MG ORAL BEDTIME Atorvastatin Calcium* (Lipitor*), 10 MG ORAL BEDTIME, (Reported) Azathioprine (Azathioprine), 50 MG ORAL DAILY Azathioprine* (Imuran*), 50 MG PO DAILY, (Reported) Cholecalciferol (Vitamin D3)* (Vitamin D*), 5,000 INTLU ORAL Mo@09 Cranberry Fruit Concentrate (Cranberry), 450 MG PO DAILY, (Reported) Docusate Sodium* (Colace*), 100 MG ORAL TWICE A DAY Doxycycline Hyclate (Doxycycline Hyclate), 100 MG PO BID Duloxetine Hcl* (Cymbalta*), 30 MG ORAL DAILY, (Reported) Epoetin Jose (Epogen), 10,000 UNIT SUBQ THREE TIMES A WEEK, (Reported) Ertapenem Sodium* (INVanz*), 1 GM IVPB Q24H, (Reported) Ferrous Sulfate* (Ferrous Sulfate*), 325 MG ORAL DAILY, (Reported) Finasteride (Finasteride), 5 MG ORAL DAILY Insulin Aspart (Novolog Flexpen), 10 UNITS SUBQ NOVOTIAC Insulin Aspart (Novolog Flexpen), 0 UNITS SUBQ BEFORE MEALS AND HS Insulin Aspart (Novolog Flexpen), 5 SQ AC, (Reported) Insulin Detemir (Levemir Flexpen), 15 UNITS SUBQ BID Insulin Glargine (Lantus), 6 SUBQ BID, (Reported) Insulin Glargine (Lantus), 10 SUBQ DAILY, (Reported) Insulin Glargine (Lantus), 6 SUBQ BEDTIME, (Reported) Insulin Lispro (Humalog), 4 SUBQ AC, (Reported) Linezolid (Zyvox), 600 MG IVPB EVERY 12 HOURS, (Reported) Metoprolol Succinate* (Metoprolol Succinate*), 50 MG ORAL Q12HR, (Reported) Omeprazole (Omeprazole), 40 MG ORAL DAILY, (Reported) Pantoprazole* (Protonix*), 40 MG ORAL DAILY Polyethylene Glycol* (Miralax*), 17 GM ORAL BEDTIME Sevelamer Carbonate* (Renvela*), 800 MG ORAL THREE TIMES A DAY, (Reported) Sodium Citrate (Sod Citrate-Citric Acid Soln), 30 ML ORAL THREE TIMES A DAY Tamsulosin HCl (Flomax), 0.4 MG ORAL BID, (Reported) Tamsulosin Hcl (Tamsulosin Hcl*), 0.4 MG ORAL BEDTIME Vit B Complex & C No.13/Fa/D3 (Nephrocaps Qt Tablet), 1 EACH PO DAILY, (Reported ) Vitamin D (Vitamin D3), 5,000 UNITS ORAL DAILY, (Reported) Warfarin Sod* (Coumadin*), 4 MG ORAL DAILY, (Reported) Scheduled PRN Acetaminophen (Acetaminophen), 650 MG ORAL Q6H PRN for Prn Headache/Temp > 101, (Reported) Ipratropium/Albuterol Sulfate (DuoNeb 0.5-3(2.5)mg/3ml), 3 ML HHN Q4HRT PRN for Shortness of Breath Ondansetron (Zofran), 4 MG ORAL Q6H PRN for Nausea & Vomiting, (Reported) [Warfarin RX monitoring], 1 EA MISC DAILY PRN for Per rx protocol Miscellaneous Medications Citric Acid/Sodium Citrate (Cytra-2 Oral Solution), 30 ML PO, (Reported) [Novolog ss], (Reported) Patient History Healthcare decision maker Resuscitation status Advanced Directive on File No Past Medical/Surgical History Past Medical/Surgical History: (1) UTI (urinary tract infection) (2) Encephalopathy acute (3) Renal osteodystrophy (4) Gastritis (5) Hypercholesteremia (6) Hematuria (7) Vitamin D deficiency (8) Hypoparathyroidism (9) BPH (benign prostatic hyperplasia) (10) History of simultaneous kidney and pancreas transplant (11) Hematemesis (12) Hypokalemia (13) BPH (benign prostatic hypertrophy) (14) Gastrointestinal hemorrhage (15) Gastrointestinal hemorrhage (16) Coagulopathy (17) Nephropathy, diabetic (18) DKA (diabetic ketoacidoses) (19) Anemia (20) Gastritis (21) GI bleeding (22) GI hemorrhage (23) Hyponatremia (24) Iron deficiency anemia (25) DVT (deep venous thrombosis) (26) Pancreatitis (27) Fall (28) Head trauma (29) Acidosis, metabolic (30) Head trauma (31) UTI (lower urinary tract infection) (32) CKD (chronic kidney disease), stage III (33) Uncontrolled diabetes mellitus (34) Colon polyps (35) Renal mass, right (36) Abnormal laboratory test result (37) RVIKA (acute kidney injury) (38) Laceration of lip (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 difficile colitis (61) Staphylococcus aureus pneumonia (62) Hypernatremia (63) DM (diabetes mellitus) (64) Anemia (65) GI bleeding (66) DM (diabetes mellitus) (67) Acute hyperglycemia (68) Anemia (69) Renal insufficiency (70) CKD (chronic kidney disease), stage III (71) Hyponatremia (72) Coronary heart disease (73) Dehydration (74) Psychiatric disturbance (75) Pulmonary HTN (76) Acute on chronic renal failure (77) CAD (coronary artery disease) (78) HTN (hypertension) (79) Anemia in chronic kidney disease (80) Iron deficiency anemia (81) Renal transplant recipient (82) Kidney transplant status Review of Systems Constitutional: Reports: malaise, weakness Genitourinary: Reports: dysuria, hematuria, pain, urgency Physical Exam General Appearance: mild distress Lines, tubes and drains: peripheral HEENT: normocephalic, atraumatic, anicteric, PERRL Neck: non-tender, normal alignment, supple, normal inspection Respiratory/Chest: chest wall non-tender, lungs clear, normal breath sounds, no respiratory distress, no accessory muscle use Breasts: no masses Cardiovascular/Chest: normal peripheral pulses, normal rate, regular rhythm, no JVD Abdomen: normal bowel sounds, non tender, soft, no organomegaly, no mass Genitourinary/Rectal: normal rectal exam, other - urethral meatus highly erythematous no scrotal swelling Extremities: normal range of motion, non-tender, normal inspection, no calf tenderness Skin Exam: normal pigmentation, warm/dry 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, no motor/sensory deficits Last 24 Hour Vital Signs Date Time Temp Pulse Resp B/P (MAP) Pulse Ox O2 Delivery O2 Flow Rate FiO2 05/31/17 16:00 98.4 67 19 150/74 99 Room Air 05/31/17 13:30 98.5 69 19 149/78 99 Room Air 05/31/17 12:44 156/85 05/31/17 12:14 61 158/85 05/31/17 10:03 97.7 60 18 171/85 99 Room Air 05/31/17 09:23 98.1 64 18 172/83 100 Room Air Intake and Output 05/31/17 06/01/17 19:00 07:00 Intake Total 240 ml Balance 240 ml Intake Oral 240 ml Laboratory Tests Test 05/31/17 09:50 White Blood Count 7.9 K/UL (4.8-10.8) Red Blood Count 2.78 M/UL (4.70-6.10) L Hemoglobin 9.0 G/DL (14.2-18.0) L Hematocrit 28.3 % (42.0-52.0) L Mean Corpuscular Volume 102 FL (80-99) H Mean Corpuscular Hemoglobin 32.4 PG (27.0-31.0) H Mean Corpuscular Hemoglobin Concent 31.8 G/DL (32.0-36.0) L Red Cell Distribution Width 14.4 % (11.6-14.8) Platelet Count 195 K/UL (150-450) Mean Platelet Volume 6.6 FL (6.5-10.1) Neutrophils (%) (Auto) 69.7 % (45.0-75.0) Lymphocytes (%) (Auto) 16.3 % (20.0-45.0) L Monocytes (%) (Auto) 8.2 % (1.0-10.0) Eosinophils (%) (Auto) 5.1 % (0.0-3.0) H Basophils (%) (Auto) 0.8 % (0.0-2.0) Prothrombin Time 15.2 SEC (9.30-11.50) H Prothromb Time International Ratio 1.4 (0.9-1.1) H Activated Partial Thromboplast Time 37 SEC (23-33) H Urine Color Pale yellow Urine Appearance Clear Urine pH 8 (4.5-8.0) Urine Specific [place] 1.010 (1.005-1.035) Urine Protein 2+ (NEGATIVE) H Urine Glucose (UA) Negative (NEGATIVE) Urine Ketones Negative (NEGATIVE) Urine Occult Blood 5+ (NEGATIVE) H Urine Nitrite Negative (NEGATIVE) Urine Bilirubin Negative (NEGATIVE) Urine Urobilinogen Normal MG/DL (0.0-1.0) Urine Leukocyte Esterase 3+ (NEGATIVE) H Urine RBC 20-30 /HPF (0 - 0) H Urine WBC 5-10 /HPF (0 - 0) H Urine Squamous Epithelial Cells Occasional /LPF Urine Bacteria Few /HPF (NONE) Urine Eosinophils Few Urine Random Sodium 101 MEQ/L (20-110) Urine Potassium Timed 15 mmol/L (12-62) Sodium Level 141 MMOL/L (136-145) Potassium Level 4.6 MMOL/L (3.5-5.1) Chloride Level 109 MMOL/L (98-107) H Carbon Dioxide Level 23 MMOL/L (21-32) Anion Gap 9 mmol/L (5-15) Blood Urea Nitrogen 71 mg/dL (7-18) H Creatinine 5.6 MG/DL (0.55-1.30) H Estimat Glomerular Filtration Rate 10.3 mL/min (>60) Glucose Level 160 MG/DL (74-106) H Uric Acid 6.8 MG/DL (2.6-7.2) Calcium Level 8.4 MG/DL (8.5-10.1) L Total Bilirubin 0.4 MG/DL (0.2-1.0) Aspartate Amino Transf (AST/SGOT) 15 U/L (15-37) Alanine Aminotransferase (ALT/SGPT) 14 U/L (12-78) Alkaline Phosphatase 85 U/L (46-116) Total Creatine Kinase 86 U/L (26-308) Total Protein 6.6 G/DL (6.4-8.2) Albumin 2.7 G/DL (3.4-5.0) L Globulin 3.9 g/dL Albumin/Globulin Ratio 0.7 (1.0-2.7) L Height (Feet): 5 Height (Inches): 10.00 Weight (Pounds): 200 Medications Current Medications Medications (Trade) Dose Ordered Sig/Dunia Route PRN Reason Start Time Stop Time Status Last Admin Dose Admin Acetaminophen (Tylenol) 650 mg Q4H PRN ORAL fever 05/31/17 11:15 06/30/17 11:14 Albuterol/ Ipratropium (Albuterol/ Ipratropium) 3 ml Q6H PRN HHN dyspnea 05/31/17 11:15 06/05/17 11:14 Amlodipine Besylate (Norvasc) 5 mg DAILY ORAL 06/01/17 12:00 07/01/17 11:59 Aspirin (ASA) 81 mg DAILY ORAL 06/01/17 09:00 07/01/17 08:59 Atorvastatin Calcium (Lipitor) 10 mg BEDTIME ORAL 05/31/17 21:00 06/30/17 20:59 Chlorhexidine Gluconate (Eloisa-Hex 2%) 1 applic DAILY@1999 TOPIC 05/31/17 20:00 06/30/17 19:59 Dextrose (Dextrose 50%) STAT PRN IV Hypoglycemia 05/31/17 11:15 06/30/17 11:14 Docusate Sodium (Colace) 100 mg THREE TIMES A DAY ORAL 05/31/17 18:00 06/30/17 17:59 Docusate Sodium (Colace) 100 mg TWICE A DAY ORAL 05/31/17 18:00 06/30/17 17:59 Heparin Sodium (Porcine) (Heparin 5000 units/ml) 5,000 units EVERY 12 HOURS SUBQ 05/31/17 21:00 06/30/17 20:59 Hydralazine HCl (Apresoline) 25 mg Q4H PRN ORAL bp of 160 syst and above 05/31/17 14:45 06/30/17 14:44 Insulin Aspart (NovoLOG) BEFORE MEALS AND HS SUBQ 05/31/17 11:30 06/30/17 11:29 Lansoprazole (Prevacid) 30 mg DAILY ORAL 05/31/17 15:00 06/30/17 14:59 05/31/17 16:06 Metoprolol Tartrate (Lopressor) 50 mg Q12HR ORAL 05/31/17 12:00 06/30/17 11:59 05/31/17 12:14 Morphine Sulfate (Morphine Sulfate) 1 mg Q4H PRN IVP For Pain 05/31/17 11:15 06/07/17 11:14 Ondansetron HCl (Zofran) 4 mg Q6H PRN IVP Nausea & Vomiting 05/31/17 11:15 06/30/17 11:14 Polyethylene Glycol (Miralax) 17 gm HSPRN PRN ORAL Constipation 05/31/17 11:15 06/30/17 11:14 Sodium Chloride 1,000 ml @ 125 mls/hr Q8H ONCE IV 05/31/17 11:30 05/31/17 19:29 05/31/17 12:14 Tamsulosin HCl (Flomax) 0.4 mg BID ORAL 05/31/17 18:00 06/30/17 17:59 Zolpidem Tartrate (Ambien) 5 mg HSPRN PRN ORAL Insomnia 05/31/17 11:15 06/07/17 11:14 Assessment/Plan Status: stable, progressing Assessment/Plan Acute Urinary Tract infection Hematuria Pulmonary HTN Anemia in chronic kidney disease CAD (coronary artery disease) HTN (hypertension) DM (diabetes mellitus) Plan Broad spectrum antibiotics for UTI H/H stable IV fluids hydration Check electrolytes Monitor BP Sliding scale insulin for hyperglycemia MARGO GALLEGOS May 31, 2017 16:43
[2017-05-31] MEDS: Tamsulosin 0.4mg cap ORAL SCH (17:17)
[2017-05-31] MEDS: Docusate 100mg cap ORAL SCH ×2 (17:17→18:00)
--- NOTE | 2017-05-31 18:03 | Cardiology Report ---
APPROVED REPORT EXAM: Two-dimensional and M-mode echocardiogram with Doppler and color Doppler. INDICATION Congestive Heart Failure M-Mode DIMENSIONS IVSd1.1 (0.7-1.1cm)Left Atrium (MM)5.1 (1.6-4.0cm) LVDd5.3 (3.5-5.6cm)Aortic Root3.1 (2.0-3.7cm) PWd0.9 (0.7-1.1cm)Aortic Cusp Exc.1.8 (1.5-2.0cm) LVDs3.1 (2.5-4.0cm) PWs2.1 cm Normal left ventricular chamber size, systolic function and wall motion. Left ventricular ejection fraction estimated to be 55 %. No evidence of left ventricular hypertrophy. Anterior Echo-free space, may be due to pericardial fat or effusion. Mild left atrial enlargement. Right cardiac chamber sizes are within normal limits. Focal aortic valve sclerosis with adequate cusp excursion. Thickened mitral valve leaflets with normal excursion. Mild mitral annulus and aortic root calcification. Normal pulmonic valve structure. Normal tricuspid valve structure. IVC at normal size with physiologic collapse. A color flow and spectral Doppler study was performed and revealed: No aortic regurgitation. Mild to moderate mitral regurgitation. reduced left ventricular relaxation c/w impaired relaxation diastolic dysfunction. Mild tricuspid regurgitation. Tricuspid systolic velocities suggests peak right ventricular systolic pressure of 40 mmHg, consistent with mild pulmonary hypertension. No pulmonic regurgitation present.
[2017-05-31 18:45] LABS: ANION GAP 9 mmol/L (5-15); CALCIUM 8.2 MG/DL (8.5-10.1); CARBON DIOXIDE 24 MMOL/L (21-32); CHLORIDE 109 MMOL/L (98-107); CREATININE 5.4 MG/DL (0.55-1.30); GLOMERULAR FILTRATION RATE 10.8 mL/min (>60); POTASSIUM 4.8 MMOL/L (3.5-5.1); SODIUM 141 MMOL/L (136-145)
[2017-05-31 20:00] VITALS: BP 147/74
--- NOTE | 2017-05-31 20:20 | History & Physical ---
History and Physical History & Physicial Dictated for Int Med-Dr Rosado no. [id number]. DEE MAHER May 31, 2017 20:20
[2017-05-31] MEDS: Dyna-Hex 2% Top Sol 2oz TOPIC SCH (20:34)
[2017-05-31] MEDS: Heparin 5000 units/ml inj SUBQ SCH (20:37)
--- NOTE | 2017-05-31 21:30 | History and Physical Report ---
DATE OF ADMISSION: 05/31/2017 CHIEF COMPLAINT: The patient is a 62-year-old white male, who presents with chief complaint of hematuria. HISTORY OF PRESENT ILLNESS: The patient has a history of renal osteodystrophy and status post renal pancreatic transplant. The patient had bilateral nephrectomies in 2014. The patient is a resident of [facility]. According to staff at [facility], the patient began to experience hematuria. The patient was sent to [facility] for evaluation. The patient was admitted with hematuria to rule out acute urinary tract infection. PAST MEDICAL HISTORY: Significant for: 1. Acute on chronic renal failure. 2. Anemia. 3. Renal osteodystrophy, secondary to hyperparathyroidism. 4. Hyperparathyroidism. 5. Gastritis. 6. Coronary artery disease, status post stent placement in 2007. 7. Hypertension. 8. Benign prostatic hypertrophy. 9. Vitamin D deficiency. PAST SURGICAL HISTORY: Significant for: 1. Radical nephrectomy in 2014. 2. Renal/pancreatic transplant in 1987, status post rejection. CURRENT MEDICATIONS: 1. NovoLog sliding scale. 2. Lantus 10 units subcutaneously daily at bedtime. 3. Nephro-Enedina one tablet p.o. daily. 4. Vitamin D3 5000 International units every Wednesday. 5. Iron sulfate 325 mg one tablet p.o. daily. 6. Renvela 800 mg one tablet p.o. three times a day. 7. Omeprazole 40 mg one tablet p.o. daily. 8. Procrit 10,000 units subcutaneously every Wednesday. ALLERGIES: Cefepime. SOCIAL HISTORY: The patient is a resident of [facility]. The patient denies tobacco or alcohol use. REVIEW OF SYSTEMS: CONSTITUTIONAL: The patient denies weight loss or weight gain. The patient denies fevers or chills. HEENT: The patient denies ear or throat pain. The patient denies headache. CARDIOVASCULAR: The patient denies palpitations or chest pain. CHEST: The patient denies wheezes or shortness of breath. ABDOMEN: The patient denies nausea, vomiting, diarrhea, or constipation. NEUROMUSCULAR: The patient denies seizures or generalized weakness. GENITOURINARY: The patient complains of hematuria as above. The patient denies dysuria or increased frequency of urination. PHYSICAL EXAMINATION: VITAL SIGNS: Temperature 98.1, respirations 18, pulse 64, and blood pressure 172/83. GENERAL: The patient is a well-developed and well-nourished male, in no apparent distress. HEENT: Eyes, pupils are equal and responsive to light and accommodation. Extraocular movements are intact. NECK: Supple without lymphadenopathy. CHEST: Lungs are clear to auscultation bilaterally without wheezes or rales. CARDIOVASCULAR: Regular rate. S1 and S2 are normal without murmurs, rubs, or gallops. ABDOMEN: Soft, nontender, and nondistended. Positive bowel sounds. No evidence of hepatosplenomegaly. Currently, no rebound or guarding noted. EXTREMITIES: Negative for clubbing, cyanosis, or edema. RECTAL/GENITAL: Refused. NEUROLOGIC: Cranial nerves II through XII are grossly intact without focal deficits. Motor strength is 5/5 bilaterally. Deep tendon reflexes are 2+ plantar. LABORATORY STUDIES: WBC is 7.9, hemoglobin 9.3, hematocrit 28.3, and platelets 195,000. Sodium is 141, potassium 4.6, chloride 109, CO2 23, BUN 71, creatinine 5.6, and glucose 160. Urinalysis showed 5+ occult blood with 20 to 30 RBCs, 5 to 10 WBCs, and 3+ leukocyte esterase. A urine culture is pending. ASSESSMENT: This is a 62-year-old male, 1. Hematuria. 2. Renal failure. 3. Diabetes type 2. 4. Hypertension. 5. History of renal osteodystrophy. 6. Secondary hyperparathyroidism. 7. Vitamin D deficiency. 8. Gastritis. 9. Coronary artery disease. 10. Benign prostatic hypertrophy. TREATMENT: 1. Hematuria. A Nephrology consultation has been obtained with Dr. Chambers. We will follow recommendations of Nephrology. 2. Renal failure as above. A Nephrology consultation has been obtained with Dr. Chambers. We will follow recommendations of Nephrology, Dr. Chambers. 3. Diabetes type 2. Continue NovoLog sliding scale. 4. Hypertension. Continue Norvasc 5 mg one tablet p.o. daily and Lopressor 50 mg p.o. twice daily. 5. Renal osteodystrophy. 6. Secondary hyperparathyroidism. 7. Vitamin D deficiency. Continue vitamin D as above. 8. Gastritis. Continue omeprazole as above. 9. Coronary artery disease. 10. Benign prostatic hypertrophy. 11. Hypercholesterolemia. Continue Lipitor. Jose Glasgow M.D. DR: Gilson JOB#: [id number] CC:
[2017-06-01 04:52] VITALS: BP 175/89
[2017-06-01] MEDS: HydrALAZINE 25mg tab ORAL PRN (05:09)
[2017-06-01] MEDS: NovoLOG Insulin Flexpen SUBQ SCH ×4 (06:05→21:00)
[2017-06-01 07:31] LABS: BASOPHILS % (AUTO) 0.8 % (0.0-2.0); LYMPHOCYTES % (AUTO) 14.4 % (20.0-45.0); MEAN CORPUSCULAR HEMOGLOBIN 33.3 PG (27.0-31.0); MEAN CORPUSCULAR HGB CONC 32.2 G/DL (32.0-36.0); MEAN CORPUSCULAR VOLUME 103 FL (80-99); NEUTROPHILS % (AUTO) 72.8 % (45.0-75.0); PLATELET COUNT 176 K/UL (150-450); RED BLOOD COUNT 2.55 M/UL (4.70-6.10); RED CELL DISTRIBUTION WIDTH 14.8 % (11.6-14.8); WHITE BLOOD COUNT 5.7 K/UL (4.8-10.8)
[2017-06-01 07:43] LABS: ALANINE AMINOTRANSFERASE 15 U/L (12-78); ALBUMIN/GLOBULIN RATIO 0.8 (1.0-2.7); ANION GAP 10 mmol/L (5-15); ASPARTATE AMINO TRANSFERASE 16 U/L (15-37); CALCIUM 8.5 MG/DL (8.5-10.1); CARBON DIOXIDE 22 MMOL/L (21-32); CHLORIDE 108 MMOL/L (98-107); CHOLESTEROL 87 MG/DL (< 200); CHOLESTEROL/HDL RATIO 5.8 (3.3-4.4); CREATININE 5.1 MG/DL (0.55-1.30); FERRITIN 716 NG/ML (8-388); GLOMERULAR FILTRATION RATE 11.5 mL/min (>60); POTASSIUM 5.8 MMOL/L (3.5-5.1); SODIUM 140 MMOL/L (136-145); THYROID STIMULATING HORMONE 2.329 uiU/mL (0.358-3.740); TOTAL PROTEIN 6.3 G/DL (6.4-8.2)
[2017-06-01] MEDS ORDERED: Ertapenem 0.5 GM in NS 55 ML IVPB SCH (08:00)
[2017-06-01 08:10] LABS: CRP QUANT 2.4 mg/dL (0.00-0.90); MAGNESIUM 1.9 MG/DL (1.8-2.4); PHOSPHORUS 3.8 MG/DL (2.5-4.9); URIC ACID 6.2 MG/DL (2.6-7.2)
[2017-06-01 08:12] LABS: FOLIC ACID > 20.0 NG/ML (3.1-17.5); HEMOGLOBIN A1C 6.9 % (4.3-6.0)
[2017-06-01 08:15] VITALS: BP 142/60
[2017-06-01 08:34] LABS: IRON 33 ug/dL (50-175); TOTAL IRON BINDING CAPACITY 156 ug/dL (250-450)
[2017-06-01] MEDS: Aspirin Baby 81mg ORAL SCH (08:47)
[2017-06-01] MEDS: Docusate 100mg cap ORAL SCH ×4 (08:48→17:22)
[2017-06-01] MEDS: Tamsulosin 0.4mg cap ORAL SCH ×2 (08:48→17:21)
[2017-06-01] MEDS: Metoprolol Tartrate 50mg tab ORAL SCH ×2 (08:54→21:00)
[2017-06-01] MEDS: Heparin 5000 units/ml inj SUBQ SCH ×2 (09:02→20:59)
--- NOTE | 2017-06-01 11:03 | Nephrology Progress Note ---
Assessment/Plan Problem List: (1) Anemia in chronic kidney disease (2) HTN (hypertension) (3) CKD (chronic kidney disease), stage III (4) DM (diabetes mellitus) Assessment (1) CKD (chronic kidney disease), stage III, superimposed acute- Cr 3.1 a year ago (2) Dehydration- Partly (3) Hyperglycemia due to type 2 diabetes mellitus (4) BPH (benign prostatic hypertrophy) (5) Nephropathy, diabetic (6) History of simultaneous kidney and pancreas transplant (7) UTI (urinary tract infection) (8) Anemia of CKD Plan Plan: Slow Hydrate- BP and BS control- Flomax PO- Kidney JOHNNY- monitor renal parameters Anemia [place] 2D Echo: Left ventricular ejection fraction estimated to be 55 %. No evidence of left ventricular hypertrophy. per orders Subjective ROS Limited/Unobtainable: No Constitutional: Reports: malaise Objective Objective Last 24 Hour Vital Signs Date Time Temp Pulse Resp B/P (MAP) Pulse Ox O2 Delivery O2 Flow Rate FiO2 06/01/17 08:54 72 176/79 06/01/17 08:15 98.1 73 21 142/60 100 Room Air 06/01/17 05:09 175/89 06/01/17 04:52 97.0 97 20 175/89 100 Room Air 05/31/17 20:35 68 147/74 05/31/17 20:00 98.4 68 20 147/74 97 Room Air 05/31/17 16:00 98.4 67 19 150/74 99 Room Air 05/31/17 13:30 98.5 69 19 149/78 99 Room Air 05/31/17 12:44 156/85 05/31/17 12:14 61 158/85 Intake and Output 06/01/17 06/02/17 19:00 07:00 Intake Total 240 ml Balance 240 ml Intake Oral 240 ml Laboratory Tests 05/31/17 18:00: Sodium Level 141, Potassium Level 4.8, Chloride Level 109H, Carbon Dioxide Level 24, Anion Gap 9, Blood Urea Nitrogen 68H, Creatinine 5.4H, Estimat Glomerular Filtration Rate 10.8, Glucose Level 217H, Calcium Level 8.2L 06/01/17 04:20: Urine Eosinophils Few 06/01/17 05:25: Sodium Level 140, Potassium Level 5.8H, Chloride Level 108H, Carbon Dioxide Level 22, Anion Gap 10, Blood Urea Nitrogen 66H, Creatinine 5.1H, Estimat Glomerular Filtration Rate 11.5, Glucose Level 295H, Calcium Level 8.5, White Blood Count 5.7, Red Blood Count 2.55L, Hemoglobin 8.5L, Hematocrit 26.4L, Mean Corpuscular Volume 103H, Mean Corpuscular Hemoglobin 33.3H, Mean Corpuscular Hemoglobin Concent 32.2, Red Cell Distribution Width 14.8, Platelet Count 176, Mean Platelet Volume 7.0, Neutrophils (%) (Auto) 72.8, Lymphocytes (%) (Auto) 14.4L, Monocytes (%) (Auto) 8.0, Eosinophils (%) (Auto) 4.0H, Basophils (%) ( Auto) 0.8, Hemoglobin A1c 6.9H, Uric Acid 6.2, Phosphorus Level 3.8, Magnesium Level 1.9, Iron Level 33L, Total Iron Binding Capacity 156L, Percent Iron Saturation 21, Unsaturated Iron Binding 123, Ferritin 716H, Total Bilirubin 0.5 , Gamma Glutamyl Transpeptidase 6, Aspartate Amino Transf (AST/SGOT) 16, Alanine Aminotransferase (ALT/SGPT) 15, Alkaline Phosphatase 85, Total Creatine Kinase 95, C-Reactive Protein, Quantitative 2.4H, Pro-B-Type Natriuretic Peptide 2361H, Total Protein 6.3L, Albumin 2.7L, Globulin 3.6, Albumin/Globulin Ratio 0.8L, Triglycerides Level 95, Cholesterol Level 87, LDL Cholesterol 55, HDL Cholesterol 15L, Cholesterol/HDL Ratio 5.8H, Vitamin B12 Level 463, Folate > 20.0H, Thyroid Stimulating Hormone (TSH) 2.329 Height (Feet): 5 Height (Inches): 10.00 Weight (Pounds): 200 General Appearance: no apparent distress Cardiovascular: normal rate Respiratory/Chest: decreased breath sounds Abdomen: soft BERT ALONSO Jun 01, 2017 11:03
[2017-06-01] MEDS ORDERED: Sodium Polystyrene Sulfonate 15gm Powder ORAL ONE (11:45)
[2017-06-01 12:16] VITALS: BP 153/73
[2017-06-01 15:59] VITALS: BP 157/73
--- NOTE | 2017-06-01 16:07 | Internal Med Progress Note ---
Subjective Date of Service: Jun 01, 2017 Physician Name Dee Maher Attending Physician Christopher Rosado MD Current Medications Medications (Trade) Dose Ordered Sig/Dunia Route PRN Reason Start Time Stop Time Status Last Admin Dose Admin Acetaminophen (Tylenol) 650 mg Q4H PRN ORAL fever 05/31/17 11:15 06/30/17 11:14 Albuterol/ Ipratropium (Albuterol/ Ipratropium) 3 ml Q6H PRN HHN dyspnea 05/31/17 11:15 06/05/17 11:14 Amlodipine Besylate (Norvasc) 5 mg BID ORAL 06/01/17 10:30 07/01/17 10:29 06/01/17 11:27 Aspirin (ASA) 81 mg DAILY ORAL 06/01/17 09:00 07/01/17 08:59 06/01/17 08:47 Atorvastatin Calcium (Lipitor) 10 mg BEDTIME ORAL 05/31/17 21:00 06/30/17 20:59 05/31/17 20:35 Chlorhexidine Gluconate (Eloisa-Hex 2%) 1 applic DAILY@2000 TOPIC 05/31/17 20:00 06/30/17 19:59 05/31/17 20:34 Dextrose (Dextrose 50%) STAT PRN IV Hypoglycemia 05/31/17 11:15 06/30/17 11:14 Docusate Sodium (Colace) 100 mg THREE TIMES A DAY ORAL 05/31/17 18:00 06/30/17 17:59 06/01/17 12:06 Heparin Sodium (Porcine) (Heparin 5000 units/ml) 5,000 units EVERY 12 HOURS SUBQ 05/31/17 21:00 06/30/17 20:59 06/01/17 09:02 Hydralazine HCl (Apresoline) 25 mg Q4H PRN ORAL bp of 160 syst and above 05/31/17 14:45 06/30/17 14:44 06/01/17 05:09 Insulin Aspart (NovoLOG) BEFORE MEALS AND HS SUBQ 05/31/17 11:30 06/30/17 11:29 06/01/17 12:21 Lansoprazole (Prevacid) 30 mg DAILY ORAL 05/31/17 15:00 06/30/17 14:59 06/01/17 08:55 Metoprolol Tartrate (Lopressor) 50 mg Q12HR ORAL 05/31/17 12:00 06/30/17 11:59 06/01/17 08:54 Morphine Sulfate (Morphine Sulfate) 1 mg Q4H PRN IVP For Pain 05/31/17 11:15 06/07/17 11:14 06/01/17 04:20 Ondansetron HCl (Zofran) 4 mg Q6H PRN IVP Nausea & Vomiting 05/31/17 11:15 06/30/17 11:14 Polyethylene Glycol (Miralax) 17 gm HSPRN PRN ORAL Constipation 05/31/17 11:15 06/30/17 11:14 Sodium Chloride 1,000 ml @ 75 mls/hr [id number] IV 06/01/17 11:45 07/01/17 11:44 06/01/17 12:06 Tamsulosin HCl (Flomax) 0.4 mg BID ORAL 05/31/17 18:00 06/30/17 17:59 06/01/17 08:48 Zolpidem Tartrate (Ambien) 5 mg HSPRN PRN ORAL Insomnia 05/31/17 11:15 06/07/17 11:14 Allergies: Coded Allergies: CEFEPIME (Verified Allergy, Intermediate, Rash, 01/23/13) ROS Limited/Unobtainable: No Constitutional: Reports: no symptoms HEENT: Reports: no symptoms Cardiovascular: Reports: no symptoms Respiratory: Reports: no symptoms Gastrointestinal/Abdominal: Reports: no symptoms Genitourinary: Reports: hematuria Neurologic/Psychiatric: Reports: no symptoms Subjective 62 YO M admitted with hematuria. Cover for [facility] - Dr Rosado. Objective Last Vital Signs Date Time Temp Pulse Resp B/P (MAP) Pulse Ox O2 Delivery O2 Flow Rate FiO2 06/01/17 15:59 97.6 75 21 157/73 97 Room Air General Appearance: WD/WN, no apparent distress, alert EENT: PERRL/EOMI, normal ENT inspection, TMs normal Neck: non-tender, normal alignment, supple Cardiovascular: normal peripheral pulses, normal rate, regular rhythm, no gallop/murmur, no JVD Respiratory/Chest: chest wall non-tender, lungs clear, normal breath sounds, no respiratory distress, no accessory muscle use Abdomen: normal bowel sounds, non tender, soft, no organomegaly, no mass Extremities: normal range of motion 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, no motor/sensory deficits Skin: normal pigmentation, warm/dry Laboratory Tests Test 05/31/17 18:00 06/01/17 04:20 06/01/17 05:25 Sodium Level 141 MMOL/L (136-145) 140 MMOL/L (136-145) Potassium Level 4.8 MMOL/L (3.5-5.1) 5.8 MMOL/L (3.5-5.1) H Chloride Level 109 MMOL/L (98-107) H 108 MMOL/L (98-107) H Carbon Dioxide Level 24 MMOL/L (21-32) 22 MMOL/L (21-32) Anion Gap 9 mmol/L (5-15) 10 mmol/L (5-15) Blood Urea Nitrogen 68 mg/dL (7-18) H 66 mg/dL (7-18) H Creatinine 5.4 MG/DL (0.55-1.30) H 5.1 MG/DL (0.55-1.30) H Estimat Glomerular Filtration Rate 10.8 mL/min (>60) 11.5 mL/min (>60) Glucose Level 217 MG/DL (74-106) H 295 MG/DL (74-106) H Calcium Level 8.2 MG/DL (8.5-10.1) L 8.5 MG/DL (8.5-10.1) Urine Eosinophils Few White Blood Count 5.7 K/UL (4.8-10.8) Red Blood Count 2.55 M/UL (4.70-6.10) L Hemoglobin 8.5 G/DL (14.2-18.0) L Hematocrit 26.4 % (42.0-52.0) L Mean Corpuscular Volume 103 FL (80-99) H Mean Corpuscular Hemoglobin 33.3 PG (27.0-31.0) H Mean Corpuscular Hemoglobin Concent 32.2 G/DL (32.0-36.0) Red Cell Distribution Width 14.8 % (11.6-14.8) Platelet Count 176 K/UL (150-450) Mean Platelet Volume 7.0 FL (6.5-10.1) Neutrophils (%) (Auto) 72.8 % (45.0-75.0) Lymphocytes (%) (Auto) 14.4 % (20.0-45.0) L Monocytes (%) (Auto) 8.0 % (1.0-10.0) Eosinophils (%) (Auto) 4.0 % (0.0-3.0) H Basophils (%) (Auto) 0.8 % (0.0-2.0) Hemoglobin A1c 6.9 % (4.3-6.0) H Uric Acid 6.2 MG/DL (2.6-7.2) Phosphorus Level 3.8 MG/DL (2.5-4.9) Magnesium Level 1.9 MG/DL (1.8-2.4) Iron Level 33 ug/dL (50-175) L Total Iron Binding Capacity 156 ug/dL (250-450) L Percent Iron Saturation 21 % (15-50) Unsaturated Iron Binding 123 ug/dL (112-346) Ferritin 716 NG/ML (8-388) H Total Bilirubin 0.5 MG/DL (0.2-1.0) Gamma Glutamyl Transpeptidase 6 U/L (5-85) Aspartate Amino Transf (AST/SGOT) 16 U/L (15-37) Alanine Aminotransferase (ALT/SGPT) 15 U/L (12-78) Alkaline Phosphatase 85 U/L (46-116) Total Creatine Kinase 95 U/L (26-308) C-Reactive Protein, Quantitative 2.4 mg/dL (0.00-0.90) H Pro-B-Type Natriuretic Peptide 2361 pg/mL (0-125) H Total Protein 6.3 G/DL (6.4-8.2) L Albumin 2.7 G/DL (3.4-5.0) L Globulin 3.6 g/dL Albumin/Globulin Ratio 0.8 (1.0-2.7) L Triglycerides Level 95 MG/DL (30-150) Cholesterol Level 87 MG/DL (< 200) LDL Cholesterol 55 mg/dL (<100) HDL Cholesterol 15 MG/DL (40-60) L Cholesterol/HDL Ratio 5.8 (3.3-4.4) H Vitamin B12 Level 463 PG/ML (193-986) Folate > 20.0 NG/ML (3.1-17.5) H Thyroid Stimulating Hormone (TSH) 2.329 uiU/mL (0.358-3.740) Intake and Output 06/01/17 06/02/17 19:00 07:00 Intake Total 480 ml Balance 480 ml Intake Oral 480 ml # Voids 1 Assessment/Plan Problem List: (1) Renal osteodystrophy (2) Hypoparathyroidism (3) Vitamin D deficiency (4) HTN (hypertension) Assessment & Plan: Continue norvasc and hydralazine. (5) CAD (coronary artery disease) (6) Acute on chronic renal failure Assessment & Plan: See nephrology note. Await renal ultrasound. (7) Anemia in chronic kidney disease (8) DM (diabetes mellitus) Assessment & Plan: Continue novolog sliding scale. (9) History of simultaneous kidney and pancreas transplant (10) BPH (benign prostatic hyperplasia) Assessment & Plan: continue flomax (11) Gastritis Assessment & Plan: Continue prevacid (12) Hypercholesteremia Assessment & Plan: Continue lipitor Status: progressing DEE MAHER Jun 01, 2017 16:07
--- NOTE | 2017-06-01 16:07 | Pulmonology Progress Note ---
Assessment/Plan Problems: (1) Hematuria (2) Pulmonary HTN (3) Anemia in chronic kidney disease (4) CAD (coronary artery disease) (5) HTN (hypertension) (6) DM (diabetes mellitus) Assessment/Plan no new complains H/H stable IV fluids check electrolytes monitor BP sliding scale. Subjective ROS Limited/Unobtainable: No Interval Events: comfortable, NAD Allergies: Coded Allergies: CEFEPIME (Verified Allergy, Intermediate, Rash, 01/23/13) Objective Last 24 Hour Vital Signs Date Time Temp Pulse Resp B/P (MAP) Pulse Ox O2 Delivery O2 Flow Rate FiO2 06/01/17 15:59 97.6 75 21 157/73 97 Room Air 06/01/17 12:16 98.1 77 21 153/73 99 Room Air 06/01/17 11:27 69 153/75 06/01/17 08:54 72 176/79 06/01/17 08:15 98.1 73 21 142/60 100 Room Air 06/01/17 05:09 175/89 06/01/17 04:52 97.0 97 20 175/89 100 Room Air 05/31/17 20:35 68 147/74 05/31/17 20:00 98.4 68 20 147/74 97 Room Air Intake and Output 06/01/17 06/02/17 19:00 07:00 Intake Total 480 ml Balance 480 ml Intake Oral 480 ml # Voids 1 General Appearance: WD/WN HEENT: normocephalic, atraumatic Respiratory/Chest: chest wall non-tender, lungs clear Cardiovascular: normal peripheral pulses, normal rate Abdomen: normal bowel sounds, soft, non tender Genitourinary: normal external genitalia Extremities: no cyanosis 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, no motor/sensory deficits Lymphatic: no neck adenopathy, no groin adenopathy Musculoskeletal: normal muscle bulk Laboratory Tests 05/31/17 18:00: Sodium Level 141, Potassium Level 4.8, Chloride Level 109H, Carbon Dioxide Level 24, Anion Gap 9, Blood Urea Nitrogen 68H, Creatinine 5.4H, Estimat Glomerular Filtration Rate 10.8, Glucose Level 217H, Calcium Level 8.2L 06/01/17 04:20: Urine Eosinophils Few 06/01/17 05:25: Sodium Level 140, Potassium Level 5.8H, Chloride Level 108H, Carbon Dioxide Level 22, Anion Gap 10, Blood Urea Nitrogen 66H, Creatinine 5.1H, Estimat Glomerular Filtration Rate 11.5, Glucose Level 295H, Calcium Level 8.5, White Blood Count 5.7, Red Blood Count 2.55L, Hemoglobin 8.5L, Hematocrit 26.4L, Mean Corpuscular Volume 103H, Mean Corpuscular Hemoglobin 33.3H, Mean Corpuscular Hemoglobin Concent 32.2, Red Cell Distribution Width 14.8, Platelet Count 176, Mean Platelet Volume 7.0, Neutrophils (%) (Auto) 72.8, Lymphocytes (%) (Auto) 14.4L, Monocytes (%) (Auto) 8.0, Eosinophils (%) (Auto) 4.0H, Basophils (%) ( Auto) 0.8, Hemoglobin A1c 6.9H, Uric Acid 6.2, Phosphorus Level 3.8, Magnesium Level 1.9, Iron Level 33L, Total Iron Binding Capacity 156L, Percent Iron Saturation 21, Unsaturated Iron Binding 123, Ferritin 716H, Total Bilirubin 0.5 , Gamma Glutamyl Transpeptidase 6, Aspartate Amino Transf (AST/SGOT) 16, Alanine Aminotransferase (ALT/SGPT) 15, Alkaline Phosphatase 85, Total Creatine Kinase 95, C-Reactive Protein, Quantitative 2.4H, Pro-B-Type Natriuretic Peptide 2361H, Total Protein 6.3L, Albumin 2.7L, Globulin 3.6, Albumin/Globulin Ratio 0.8L, Triglycerides Level 95, Cholesterol Level 87, LDL Cholesterol 55, HDL Cholesterol 15L, Cholesterol/HDL Ratio 5.8H, Vitamin B12 Level 463, Folate > 20.0H, Thyroid Stimulating Hormone (TSH) 2.329 Current Medications Medications (Trade) Dose Ordered Sig/Dunia Route PRN Reason Start Time Stop Time Status Last Admin Dose Admin Acetaminophen (Tylenol) 650 mg Q4H PRN ORAL fever 05/31/17 11:15 06/30/17 11:14 Albuterol/ Ipratropium (Albuterol/ Ipratropium) 3 ml Q6H PRN HHN dyspnea 05/31/17 11:15 06/05/17 11:14 Amlodipine Besylate (Norvasc) 5 mg BID ORAL 06/01/17 10:30 07/01/17 10:29 06/01/17 11:27 Aspirin (ASA) 81 mg DAILY ORAL 06/01/17 09:00 07/01/17 08:59 06/01/17 08:47 Atorvastatin Calcium (Lipitor) 10 mg BEDTIME ORAL 05/31/17 21:00 06/30/17 20:59 05/31/17 20:35 Chlorhexidine Gluconate (Eloisa-Hex 2%) 1 applic DAILY@2000 TOPIC 05/31/17 20:00 06/30/17 19:59 05/31/17 20:34 Dextrose (Dextrose 50%) STAT PRN IV Hypoglycemia 05/31/17 11:15 06/30/17 11:14 Docusate Sodium (Colace) 100 mg THREE TIMES A DAY ORAL 05/31/17 18:00 06/30/17 17:59 06/01/17 12:06 Heparin Sodium (Porcine) (Heparin 5000 units/ml) 5,000 units EVERY 12 HOURS SUBQ 05/31/17 21:00 06/30/17 20:59 06/01/17 09:02 Hydralazine HCl (Apresoline) 25 mg Q4H PRN ORAL bp of 160 syst and above 05/31/17 14:45 06/30/17 14:44 06/01/17 05:09 Insulin Aspart (NovoLOG) BEFORE MEALS AND HS SUBQ 05/31/17 11:30 06/30/17 11:29 06/01/17 12:21 Lansoprazole (Prevacid) 30 mg DAILY ORAL 05/31/17 15:00 06/30/17 14:59 06/01/17 08:55 Metoprolol Tartrate (Lopressor) 50 mg Q12HR ORAL 05/31/17 12:00 06/30/17 11:59 06/01/17 08:54 Morphine Sulfate (Morphine Sulfate) 1 mg Q4H PRN IVP For Pain 05/31/17 11:15 06/07/17 11:14 06/01/17 04:20 Ondansetron HCl (Zofran) 4 mg Q6H PRN IVP Nausea & Vomiting 05/31/17 11:15 06/30/17 11:14 Polyethylene Glycol (Miralax) 17 gm HSPRN PRN ORAL Constipation 05/31/17 11:15 06/30/17 11:14 Sodium Chloride 1,000 ml @ 75 mls/hr [id number] IV 06/01/17 11:45 07/01/17 11:44 06/01/17 12:06 Tamsulosin HCl (Flomax) 0.4 mg BID ORAL 05/31/17 18:00 06/30/17 17:59 06/01/17 08:48 Zolpidem Tartrate (Ambien) 5 mg HSPRN PRN ORAL Insomnia 05/31/17 11:15 06/07/17 11:14 MARGO GALLEGOS Jun 01, 2017 16:07
--- NOTE | 2017-06-01 16:15 | Internal Med Progress Note ---
Subjective Date of Service: Jun 01, 2017 Physician Name Dee Maher Attending Physician Christopher Rosado MD Current Medications Medications (Trade) Dose Ordered Sig/Dunia Route PRN Reason Start Time Stop Time Status Last Admin Dose Admin Acetaminophen (Tylenol) 650 mg Q4H PRN ORAL fever 05/31/17 11:15 06/30/17 11:14 Albuterol/ Ipratropium (Albuterol/ Ipratropium) 3 ml Q6H PRN HHN dyspnea 05/31/17 11:15 06/05/17 11:14 Amlodipine Besylate (Norvasc) 5 mg BID ORAL 06/01/17 10:30 07/01/17 10:29 06/01/17 11:27 Aspirin (ASA) 81 mg DAILY ORAL 06/01/17 09:00 07/01/17 08:59 06/01/17 08:47 Atorvastatin Calcium (Lipitor) 10 mg BEDTIME ORAL 05/31/17 21:00 06/30/17 20:59 05/31/17 20:35 Chlorhexidine Gluconate (Eloisa-Hex 2%) 1 applic DAILY@2000 TOPIC 05/31/17 20:00 06/30/17 19:59 05/31/17 20:34 Dextrose (Dextrose 50%) STAT PRN IV Hypoglycemia 05/31/17 11:15 06/30/17 11:14 Docusate Sodium (Colace) 100 mg THREE TIMES A DAY ORAL 05/31/17 18:00 06/30/17 17:59 06/01/17 12:06 Heparin Sodium (Porcine) (Heparin 5000 units/ml) 5,000 units EVERY 12 HOURS SUBQ 05/31/17 21:00 06/30/17 20:59 06/01/17 09:02 Hydralazine HCl (Apresoline) 25 mg Q4H PRN ORAL bp of 160 syst and above 05/31/17 14:45 06/30/17 14:44 06/01/17 05:09 Insulin Aspart (NovoLOG) BEFORE MEALS AND HS SUBQ 05/31/17 11:30 06/30/17 11:29 06/01/17 12:21 Lansoprazole (Prevacid) 30 mg DAILY ORAL 05/31/17 15:00 06/30/17 14:59 06/01/17 08:55 Metoprolol Tartrate (Lopressor) 50 mg Q12HR ORAL 05/31/17 12:00 06/30/17 11:59 06/01/17 08:54 Morphine Sulfate (Morphine Sulfate) 1 mg Q4H PRN IVP For Pain 05/31/17 11:15 06/07/17 11:14 06/01/17 04:20 Ondansetron HCl (Zofran) 4 mg Q6H PRN IVP Nausea & Vomiting 05/31/17 11:15 06/30/17 11:14 Polyethylene Glycol (Miralax) 17 gm HSPRN PRN ORAL Constipation 05/31/17 11:15 06/30/17 11:14 Sodium Chloride 1,000 ml @ 75 mls/hr [id number] IV 06/01/17 11:45 07/01/17 11:44 06/01/17 12:06 Tamsulosin HCl (Flomax) 0.4 mg BID ORAL 05/31/17 18:00 06/30/17 17:59 06/01/17 08:48 Zolpidem Tartrate (Ambien) 5 mg HSPRN PRN ORAL Insomnia 05/31/17 11:15 06/07/17 11:14 Allergies: Coded Allergies: CEFEPIME (Verified Allergy, Intermediate, Rash, 01/23/13) ROS Limited/Unobtainable: No Constitutional: Reports: no symptoms HEENT: Reports: no symptoms Cardiovascular: Reports: no symptoms Respiratory: Reports: no symptoms Gastrointestinal/Abdominal: Reports: no symptoms Genitourinary: Reports: hematuria Neurologic/Psychiatric: Reports: no symptoms Subjective 62 YO M admitted with hematuria. Cover for [facility] - Dr Rosado. Objective Last Vital Signs Date Time Temp Pulse Resp B/P (MAP) Pulse Ox O2 Delivery O2 Flow Rate FiO2 06/01/17 12:16 98.1 77 21 153/73 99 Room Air General Appearance: WD/WN, no apparent distress, alert EENT: PERRL/EOMI, normal ENT inspection, TMs normal Neck: non-tender, normal alignment, supple, normal inspection Cardiovascular: normal peripheral pulses, normal rate, regular rhythm, no gallop/murmur, no JVD Respiratory/Chest: chest wall non-tender, lungs clear, normal breath sounds, no respiratory distress, no accessory muscle use Abdomen: normal bowel sounds, non tender, soft, no organomegaly, no mass 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 Skin: normal pigmentation, warm/dry Laboratory Tests Test 05/31/17 18:00 06/01/17 04:20 06/01/17 05:25 Sodium Level 141 MMOL/L (136-145) 140 MMOL/L (136-145) Potassium Level 4.8 MMOL/L (3.5-5.1) 5.8 MMOL/L (3.5-5.1) H Chloride Level 109 MMOL/L (98-107) H 108 MMOL/L (98-107) H Carbon Dioxide Level 24 MMOL/L (21-32) 22 MMOL/L (21-32) Anion Gap 9 mmol/L (5-15) 10 mmol/L (5-15) Blood Urea Nitrogen 68 mg/dL (7-18) H 66 mg/dL (7-18) H Creatinine 5.4 MG/DL (0.55-1.30) H 5.1 MG/DL (0.55-1.30) H Estimat Glomerular Filtration Rate 10.8 mL/min (>60) 11.5 mL/min (>60) Glucose Level 217 MG/DL (74-106) H 295 MG/DL (74-106) H Calcium Level 8.2 MG/DL (8.5-10.1) L 8.5 MG/DL (8.5-10.1) Urine Eosinophils Few White Blood Count 5.7 K/UL (4.8-10.8) Red Blood Count 2.55 M/UL (4.70-6.10) L Hemoglobin 8.5 G/DL (14.2-18.0) L Hematocrit 26.4 % (42.0-52.0) L Mean Corpuscular Volume 103 FL (80-99) H Mean Corpuscular Hemoglobin 33.3 PG (27.0-31.0) H Mean Corpuscular Hemoglobin Concent 32.2 G/DL (32.0-36.0) Red Cell Distribution Width 14.8 % (11.6-14.8) Platelet Count 176 K/UL (150-450) Mean Platelet Volume 7.0 FL (6.5-10.1) Neutrophils (%) (Auto) 72.8 % (45.0-75.0) Lymphocytes (%) (Auto) 14.4 % (20.0-45.0) L Monocytes (%) (Auto) 8.0 % (1.0-10.0) Eosinophils (%) (Auto) 4.0 % (0.0-3.0) H Basophils (%) (Auto) 0.8 % (0.0-2.0) Hemoglobin A1c 6.9 % (4.3-6.0) H Uric Acid 6.2 MG/DL (2.6-7.2) Phosphorus Level 3.8 MG/DL (2.5-4.9) Magnesium Level 1.9 MG/DL (1.8-2.4) Iron Level 33 ug/dL (50-175) L Total Iron Binding Capacity 156 ug/dL (250-450) L Percent Iron Saturation 21 % (15-50) Unsaturated Iron Binding 123 ug/dL (112-346) Ferritin 716 NG/ML (8-388) H Total Bilirubin 0.5 MG/DL (0.2-1.0) Gamma Glutamyl Transpeptidase 6 U/L (5-85) Aspartate Amino Transf (AST/SGOT) 16 U/L (15-37) Alanine Aminotransferase (ALT/SGPT) 15 U/L (12-78) Alkaline Phosphatase 85 U/L (46-116) Total Creatine Kinase 95 U/L (26-308) C-Reactive Protein, Quantitative 2.4 mg/dL (0.00-0.90) H Pro-B-Type Natriuretic Peptide 2361 pg/mL (0-125) H Total Protein 6.3 G/DL (6.4-8.2) L Albumin 2.7 G/DL (3.4-5.0) L Globulin 3.6 g/dL Albumin/Globulin Ratio 0.8 (1.0-2.7) L Triglycerides Level 95 MG/DL (30-150) Cholesterol Level 87 MG/DL (< 200) LDL Cholesterol 55 mg/dL (<100) HDL Cholesterol 15 MG/DL (40-60) L Cholesterol/HDL Ratio 5.8 (3.3-4.4) H Vitamin B12 Level 463 PG/ML (193-986) Folate > 20.0 NG/ML (3.1-17.5) H Thyroid Stimulating Hormone (TSH) 2.329 uiU/mL (0.358-3.740) Intake and Output 06/01/17 06/02/17 19:00 07:00 Intake Total 480 ml Balance 480 ml Intake Oral 480 ml Assessment/Plan Problem List: (1) Renal osteodystrophy (2) Hypoparathyroidism (3) Vitamin D deficiency (4) HTN (hypertension) Assessment & Plan: Continue norvasc and hydralazine. (5) CAD (coronary artery disease) (6) Acute on chronic renal failure Assessment & Plan: See nephrology note. Await renal ultrasound. (7) Anemia in chronic kidney disease (8) DM (diabetes mellitus) Assessment & Plan: Continue novolog sliding scale. (9) History of simultaneous kidney and pancreas transplant (10) BPH (benign prostatic hyperplasia) Assessment & Plan: continue flomax (11) Gastritis Assessment & Plan: Continue prevacid (12) Hypercholesteremia Assessment & Plan: Continue lipitor DEE MAHER Jun 01, 2017 16:15
[2017-06-01 20:00] VITALS: BP 153/75
[2017-06-01] MEDS: Dyna-Hex 2% Top Sol 2oz TOPIC SCH (21:00)
--- NOTE | 2017-06-01 22:34 | Consultation ---
History of Present Illness General Date patient seen: May 31, 2017 Chief Complaint: Male Urogenital Problems Present Illness HPI 62-year-old male sent in by nursing facility after increased hematuria. the pt also has hx of depression and anxiety before coming to the hospital he was on Cymbalta. no si/hi Allergies: Coded Allergies: CEFEPIME (Verified Allergy, Intermediate, Rash, 01/23/13) Medication History Scheduled Amlodipine Besylate (Norvasc), 5 MG ORAL DAILY, (Reported) Aspirin* (Aspirin*), 81 MG ORAL DAILY Atorvastatin Calcium* (Lipitor*), 10 MG ORAL BEDTIME Atorvastatin Calcium* (Lipitor*), 10 MG ORAL BEDTIME, (Reported) Azathioprine (Azathioprine), 50 MG ORAL DAILY Azathioprine* (Imuran*), 50 MG PO DAILY, (Reported) Cholecalciferol (Vitamin D3)* (Vitamin D*), 5,000 INTLU ORAL Mo@09 Cranberry Fruit Concentrate (Cranberry), 450 MG PO DAILY, (Reported) Docusate Sodium* (Colace*), 100 MG ORAL TWICE A DAY Doxycycline Hyclate (Doxycycline Hyclate), 100 MG PO BID Duloxetine Hcl* (Cymbalta*), 30 MG ORAL DAILY, (Reported) Epoetin Jose (Epogen), 10,000 UNIT SUBQ THREE TIMES A WEEK, (Reported) Ferrous Sulfate* (Ferrous Sulfate*), 325 MG ORAL DAILY, (Reported) Insulin Aspart (Novolog Flexpen), 10 UNITS SUBQ NOVOTIAC Insulin Aspart (Novolog Flexpen), 0 UNITS SUBQ BEFORE MEALS AND HS Insulin Aspart (Novolog Flexpen), 5 SQ AC, (Reported) Insulin Detemir (Levemir Flexpen), 15 UNITS SUBQ BID Insulin Glargine (Lantus), 6 SUBQ BID, (Reported) Insulin Glargine (Lantus), 10 SUBQ DAILY, (Reported) Insulin Glargine (Lantus), 6 SUBQ BEDTIME, (Reported) Insulin Lispro (Humalog), 4 SUBQ AC, (Reported) Metoprolol Succinate* (Metoprolol Succinate*), 50 MG ORAL Q12HR, (Reported) Omeprazole (Omeprazole), 40 MG ORAL DAILY, (Reported) Pantoprazole* (Protonix*), 40 MG ORAL DAILY Polyethylene Glycol* (Miralax*), 17 GM ORAL BEDTIME Sevelamer Carbonate* (Renvela*), 800 MG ORAL THREE TIMES A DAY, (Reported) Sodium Citrate (Sod Citrate-Citric Acid Soln), 30 ML ORAL THREE TIMES A DAY Tamsulosin HCl (Flomax), 0.4 MG ORAL BID, (Reported) Vit B Complex & C No.13/Fa/D3 (Nephrocaps Qt Tablet), 1 EACH PO DAILY, (Reported ) Vitamin D (Vitamin D3), 5,000 UNITS ORAL DAILY, (Reported) Warfarin Sod* (Coumadin*), 4 MG ORAL DAILY, (Reported) Scheduled PRN Acetaminophen (Acetaminophen), 650 MG ORAL Q6H PRN for Prn Headache/Temp > 101, (Reported) Ipratropium/Albuterol Sulfate (DuoNeb 0.5-3(2.5)mg/3ml), 3 ML HHN Q4HRT PRN for Shortness of Breath Ondansetron (Zofran), 4 MG ORAL Q6H PRN for Nausea & Vomiting, (Reported) [Warfarin RX monitoring], 1 EA MISC DAILY PRN for Per rx protocol Miscellaneous Medications Citric Acid/Sodium Citrate (Cytra-2 Oral Solution), 30 ML PO, (Reported) [Novolog ss], (Reported) Patient History History Provided By: Patient, Medical Record, PMD Healthcare decision maker Resuscitation status Advanced Directive on File No Past Medical/Surgical History Past Medical/Surgical History: (1) Head trauma (2) Fall (3) Head trauma (4) UTI (lower urinary tract infection) (5) Acidosis, metabolic (6) Renal mass, right (7) Gastrointestinal hemorrhage (8) Gastrointestinal hemorrhage (9) Hyponatremia (10) Coagulopathy (11) Elevated lipase (12) GI bleeding (13) Hematemesis (14) GI hemorrhage (15) DVT (deep venous thrombosis) (16) Hypokalemia (17) DKA (diabetic ketoacidoses) (18) Anemia (19) Iron deficiency anemia (20) Gastritis (21) Colon polyps (22) Pancreatitis (23) DVT of axillary vein, chronic (24) CKD (chronic kidney disease), stage III (25) RIVKA (acute kidney injury) (26) BPH (benign prostatic hypertrophy) (27) Acute hyperglycemia (28) Hyperglycemia due to type 2 diabetes mellitus (29) Nephropathy, diabetic (30) Retinopathy, diabetic, left eye (31) Uncontrolled diabetes mellitus (32) Laceration of lip (33) Excessive anticoagulation (34) Abnormal laboratory test result (35) UTI (urinary tract infection) (36) hematuria (37) Encephalopathy acute (38) Hematuria (39) Renal osteodystrophy (40) Gastritis (41) Hypercholesteremia (42) Hypoparathyroidism (43) Vitamin D deficiency (44) BPH (benign prostatic hyperplasia) (45) History of simultaneous kidney and pancreas transplant (46) Altered mental state (47) Respiratory disease (48) diabetic keto acidosis (49) Renal insufficiency (50) Elevated troponin (51) Dehydration (52) Renal insufficiency (53) Acute renal failure (ARF) (54) CKD (chronic kidney disease), stage III (55) DKA (diabetic ketoacidoses) (56) CT (myocardial infarction) (57) C. difficile colitis (58) Staphylococcus aureus pneumonia (59) Hypernatremia (60) DM (diabetes mellitus) (61) Anemia (62) GI bleeding (63) DM (diabetes mellitus) (64) Acute hyperglycemia (65) Anemia (66) Hyponatremia (67) CKD (chronic kidney disease), stage III (68) Renal insufficiency (69) Dehydration (70) Coronary heart disease (71) Psychiatric disturbance (72) Pulmonary HTN (73) Acute on chronic renal failure (74) CAD (coronary artery disease) (75) HTN (hypertension) (76) Anemia in chronic kidney disease (77) Anemia in chronic kidney disease (78) Iron deficiency anemia Review of Systems Psychiatric: Reports: prior hx, anxiety, depressed feelings Physical Exam General Appearance: WD/WN, no apparent distress, alert, overweight Neurologic: alert, oriented x 3, responsive, depressed affect Last 24 Hour Vital Signs Date Time Temp Pulse Resp B/P (MAP) Pulse Ox O2 Delivery O2 Flow Rate FiO2 06/01/17 21:00 88 153/75 06/01/17 20:00 98.6 88 18 153/75 95 Room Air 06/01/17 17:22 75 157/73 06/01/17 15:59 97.6 75 21 157/73 97 Room Air 06/01/17 12:16 98.1 77 21 153/73 99 Room Air 06/01/17 11:27 69 153/75 06/01/17 08:54 72 176/79 06/01/17 08:15 98.1 73 21 142/60 100 Room Air 06/01/17 05:09 175/89 06/01/17 04:52 97.0 97 20 175/89 100 Room Air Intake and Output 06/01/17 06/02/17 19:00 07:00 Intake Total 960 ml 225 ml Balance 960 ml 225 ml Intake Oral 960 ml IV Total 225 ml # Voids 1 Laboratory Tests Test 06/01/17 04:20 06/01/17 05:25 Urine Eosinophils Few White Blood Count 5.7 K/UL (4.8-10.8) Red Blood Count 2.55 M/UL (4.70-6.10) L Hemoglobin 8.5 G/DL (14.2-18.0) L Hematocrit 26.4 % (42.0-52.0) L Mean Corpuscular Volume 103 FL (80-99) H Mean Corpuscular Hemoglobin 33.3 PG (27.0-31.0) H Mean Corpuscular Hemoglobin Concent 32.2 G/DL (32.0-36.0) Red Cell Distribution Width 14.8 % (11.6-14.8) Platelet Count 176 K/UL (150-450) Mean Platelet Volume 7.0 FL (6.5-10.1) Neutrophils (%) (Auto) 72.8 % (45.0-75.0) Lymphocytes (%) (Auto) 14.4 % (20.0-45.0) L Monocytes (%) (Auto) 8.0 % (1.0-10.0) Eosinophils (%) (Auto) 4.0 % (0.0-3.0) H Basophils (%) (Auto) 0.8 % (0.0-2.0) Sodium Level 140 MMOL/L (136-145) Potassium Level 5.8 MMOL/L (3.5-5.1) H Chloride Level 108 MMOL/L (98-107) H Carbon Dioxide Level 22 MMOL/L (21-32) Anion Gap 10 mmol/L (5-15) Blood Urea Nitrogen 66 mg/dL (7-18) H Creatinine 5.1 MG/DL (0.55-1.30) H Estimat Glomerular Filtration Rate 11.5 mL/min (>60) Glucose Level 295 MG/DL (74-106) H Hemoglobin A1c 6.9 % (4.3-6.0) H Uric Acid 6.2 MG/DL (2.6-7.2) Calcium Level 8.5 MG/DL (8.5-10.1) Phosphorus Level 3.8 MG/DL (2.5-4.9) Magnesium Level 1.9 MG/DL (1.8-2.4) Iron Level 33 ug/dL (50-175) L Total Iron Binding Capacity 156 ug/dL (250-450) L Percent Iron Saturation 21 % (15-50) Unsaturated Iron Binding 123 ug/dL (112-346) Ferritin 716 NG/ML (8-388) H Total Bilirubin 0.5 MG/DL (0.2-1.0) Gamma Glutamyl Transpeptidase 6 U/L (5-85) Aspartate Amino Transf (AST/SGOT) 16 U/L (15-37) Alanine Aminotransferase (ALT/SGPT) 15 U/L (12-78) Alkaline Phosphatase 85 U/L (46-116) Total Creatine Kinase 95 U/L (26-308) C-Reactive Protein, Quantitative 2.4 mg/dL (0.00-0.90) H Pro-B-Type Natriuretic Peptide 2361 pg/mL (0-125) H Total Protein 6.3 G/DL (6.4-8.2) L Albumin 2.7 G/DL (3.4-5.0) L Globulin 3.6 g/dL Albumin/Globulin Ratio 0.8 (1.0-2.7) L Triglycerides Level 95 MG/DL (30-150) Cholesterol Level 87 MG/DL (< 200) LDL Cholesterol 55 mg/dL (<100) HDL Cholesterol 15 MG/DL (40-60) L Cholesterol/HDL Ratio 5.8 (3.3-4.4) H Vitamin B12 Level 463 PG/ML (193-986) Folate > 20.0 NG/ML (3.1-17.5) H Thyroid Stimulating Hormone (TSH) 2.329 uiU/mL (0.358-3.740) Height (Feet): 5 Height (Inches): 10.00 Weight (Pounds): 200 Medications Current Medications Medications (Trade) Dose Ordered Sig/Dunia Route PRN Reason Start Time Stop Time Status Last Admin Dose Admin Acetaminophen (Tylenol) 650 mg Q4H PRN ORAL fever 05/31/17 11:15 06/30/17 11:14 Albuterol/ Ipratropium (Albuterol/ Ipratropium) 3 ml Q6H PRN HHN dyspnea 05/31/17 11:15 06/05/17 11:14 Amlodipine Besylate (Norvasc) 5 mg BID ORAL 06/01/17 10:30 07/01/17 10:29 06/01/17 17:22 Aspirin (ASA) 81 mg DAILY ORAL 06/01/17 09:00 07/01/17 08:59 06/01/17 08:47 Atorvastatin Calcium (Lipitor) 10 mg BEDTIME ORAL 05/31/17 21:00 06/30/17 20:59 06/01/17 21:00 Chlorhexidine Gluconate (Eloisa-Hex 2%) 1 applic DAILY@2000 TOPIC 05/31/17 20:00 06/30/17 19:59 06/01/17 21:00 Dextrose (Dextrose 50%) STAT PRN IV Hypoglycemia 05/31/17 11:15 06/30/17 11:14 Docusate Sodium (Colace) 100 mg THREE TIMES A DAY ORAL 05/31/17 18:00 06/30/17 17:59 06/01/17 17:22 Heparin Sodium (Porcine) (Heparin 5000 units/ml) 5,000 units EVERY 12 HOURS SUBQ 05/31/17 21:00 06/30/17 20:59 06/01/17 20:59 Hydralazine HCl (Apresoline) 25 mg Q4H PRN ORAL bp of 160 syst and above 05/31/17 14:45 06/30/17 14:44 06/01/17 05:09 Insulin Aspart (NovoLOG) BEFORE MEALS AND HS SUBQ 05/31/17 11:30 06/30/17 11:29 06/01/17 21:00 Lansoprazole (Prevacid) 30 mg DAILY ORAL 05/31/17 15:00 06/30/17 14:59 06/01/17 08:55 Metoprolol Tartrate (Lopressor) 50 mg Q12HR ORAL 05/31/17 12:00 06/30/17 11:59 06/01/17 21:00 Morphine Sulfate (Morphine Sulfate) 1 mg Q4H PRN IVP For Pain 05/31/17 11:15 06/07/17 11:14 06/01/17 04:20 Ondansetron HCl (Zofran) 4 mg Q6H PRN IVP Nausea & Vomiting 05/31/17 11:15 06/30/17 11:14 Polyethylene Glycol (Miralax) 17 gm HSPRN PRN ORAL Constipation 05/31/17 11:15 06/30/17 11:14 Sodium Chloride 1,000 ml @ 75 mls/hr [id number] IV 06/01/17 11:45 07/01/17 11:44 06/01/17 12:06 Tamsulosin HCl (Flomax) 0.4 mg BID ORAL 05/31/17 18:00 06/30/17 17:59 06/01/17 17:21 Zolpidem Tartrate (Ambien) 5 mg HSPRN PRN ORAL Insomnia 05/31/17 11:15 06/07/17 11:14 Assessment/Plan Status: stable Assessment/Plan mdd, anxiety cymbalta 30mg Fatmata Emery M.D. Jun 01, 2017 22:34
--- NOTE | 2017-06-01 22:40 | General Progress Note ---
Subjective Date patient seen: Jun 01, 2017 Neurologic/Psychiatric: Reports: anxiety, depressed Allergies: Coded Allergies: CEFEPIME (Verified Allergy, Intermediate, Rash, 01/23/13) Subjective the pt is withdrawn min verbal stated that he feels he is withdrawing from cymbalta Objective Last 24 Hour Vital Signs Date Time Temp Pulse Resp B/P (MAP) Pulse Ox O2 Delivery O2 Flow Rate FiO2 06/01/17 21:00 88 153/75 06/01/17 20:00 98.6 88 18 153/75 95 Room Air 06/01/17 17:22 75 157/73 06/01/17 15:59 97.6 75 21 157/73 97 Room Air 06/01/17 12:16 98.1 77 21 153/73 99 Room Air 06/01/17 11:27 69 153/75 06/01/17 08:54 72 176/79 06/01/17 08:15 98.1 73 21 142/60 100 Room Air 06/01/17 05:09 175/89 06/01/17 04:52 97.0 97 20 175/89 100 Room Air Intake and Output 06/01/17 06/02/17 19:00 07:00 Intake Total 960 ml 225 ml Balance 960 ml 225 ml Intake Oral 960 ml IV Total 225 ml # Voids 1 Laboratory Tests 06/01/17 04:20: Urine Eosinophils Few 06/01/17 05:25: White Blood Count 5.7, Red Blood Count 2.55L, Hemoglobin 8.5L, Hematocrit 26.4L , Mean Corpuscular Volume 103H, Mean Corpuscular Hemoglobin 33.3H, Mean Corpuscular Hemoglobin Concent 32.2, Red Cell Distribution Width 14.8, Platelet Count 176, Mean Platelet Volume 7.0, Neutrophils (%) (Auto) 72.8, Lymphocytes (% ) (Auto) 14.4L, Monocytes (%) (Auto) 8.0, Eosinophils (%) (Auto) 4.0H, Basophils (%) (Auto) 0.8, Sodium Level 140, Potassium Level 5.8H, Chloride Level 108H, Carbon Dioxide Level 22, Anion Gap 10, Blood Urea Nitrogen 66H, Creatinine 5.1H, Estimat Glomerular Filtration Rate 11.5, Glucose Level 295H, Hemoglobin A1c 6.9H, Uric Acid 6.2, Calcium Level 8.5, Phosphorus Level 3.8, Magnesium Level 1.9, Iron Level 33L, Total Iron Binding Capacity 156L, Percent Iron Saturation 21, Unsaturated Iron Binding 123, Ferritin 716H, Total Bilirubin 0.5, Gamma Glutamyl Transpeptidase 6, Aspartate Amino Transf (AST/SGOT ) 16, Alanine Aminotransferase (ALT/SGPT) 15, Alkaline Phosphatase 85, Total Creatine Kinase 95, C-Reactive Protein, Quantitative 2.4H, Pro-B-Type Natriuretic Peptide 2361H, Total Protein 6.3L, Albumin 2.7L, Globulin 3.6, Albumin/Globulin Ratio 0.8L, Triglycerides Level 95, Cholesterol Level 87, LDL Cholesterol 55, HDL Cholesterol 15L, Cholesterol/HDL Ratio 5.8H, Vitamin B12 Level 463, Folate > 20.0H, Thyroid Stimulating Hormone (TSH) 2.329 Height (Feet): 5 Height (Inches): 10.00 Weight (Pounds): 200 Fatmata Lu M.D. Jun 01, 2017 22:40
[2017-06-01 23:53] VITALS: BP 144/75
[2017-06-02] MEDS: NovoLOG Insulin Flexpen SUBQ SCH ×5 (05:25→21:02)
[2017-06-02 06:31] LABS: BASOPHILS % (AUTO) 0.7 % (0.0-2.0); EOSINOPHILS % (AUTO) 3.9 % (0.0-3.0); LYMPHOCYTES % (AUTO) 19.6 % (20.0-45.0); MEAN CORPUSCULAR HEMOGLOBIN 34.3 PG (27.0-31.0); MEAN CORPUSCULAR HGB CONC 32.7 G/DL (32.0-36.0); MEAN CORPUSCULAR VOLUME 105 FL (80-99); MEAN PLATELET VOLUME 6.8 FL (6.5-10.1); MONOCYTES % (AUTO) 11.3 % (1.0-10.0); NEUTROPHILS % (AUTO) 64.5 % (45.0-75.0); PLATELET COUNT 167 K/UL (150-450); RED BLOOD COUNT 2.43 M/UL (4.70-6.10); RED CELL DISTRIBUTION WIDTH 14.4 % (11.6-14.8); WHITE BLOOD COUNT 6.5 K/UL (4.8-10.8)
[2017-06-02 07:49] LABS: ALANINE AMINOTRANSFERASE 14 U/L (12-78); ALBUMIN/GLOBULIN RATIO 0.7 (1.0-2.7); ANION GAP 13 mmol/L (5-15); ASPARTATE AMINO TRANSFERASE 13 U/L (15-37); CALCIUM 8.2 MG/DL (8.5-10.1); CARBON DIOXIDE 19 MMOL/L (21-32); CHLORIDE 105 MMOL/L (98-107); CREATININE 5.4 MG/DL (0.55-1.30); CRP QUANT 2.9 mg/dL (0.00-0.90); GLOMERULAR FILTRATION RATE 10.8 mL/min (>60); MAGNESIUM 1.8 MG/DL (1.8-2.4); PHOSPHORUS 3.8 MG/DL (2.5-4.9); POTASSIUM 5.7 MMOL/L (3.5-5.1); SODIUM 137 MMOL/L (136-145); TOTAL PROTEIN 6.2 G/DL (6.4-8.2); URIC ACID 6.7 MG/DL (2.6-7.2)
[2017-06-02 08:23] VITALS: BP 155/79
--- NOTE | 2017-06-02 10:23 | Diagnostic Imaging Report ---
Indication: Elevated renal function tests Technique: Grayscale and duplex images of the kidneys, retroperitoneum, and bladder were obtained. Comparison:12/27/2014, also CT scan dated 12/25/2016 Findings: There is a left iliac fossa renal allograft, which measures 11.7 cm in length. It demonstrate normal echogenicity. It demonstrates moderate hydronephrosis. It demonstrates multiple cysts. On Doppler interrogation, and resistive indices measure between 0.58 and 0.8. Bladder is distended, prevoid volume 739 mL, postvoid volume 638 mL. Prostate volume is 26 mL. The enterprise kidneys were not imaged; recent CT indicates that these were removed in the interim since the prior ultrasound Impression: Markedly distended bladder with large post void residual Left iliac fossa transplant kidney with moderate hydronephrosis. Suspect hydronephrosis is secondary to the above bladder abnormality, although other etiologies are not excludable. Mildly elevated transplant kidney resistive indices. This is nonspecific, can be seen in uropathy, but can also be seen in acute or chronic rejection, acute tubular necrosis, among other possibilities This agrees with the preliminary interpretation provided overnight by [facility] teleradiology service.
[2017-06-02] MEDS ORDERED: Sodium Polystyrene Sulfonate 15gm Powder ORAL ONE (10:30)
[2017-06-02] MEDS: Aspirin Baby 81mg ORAL SCH (10:32)
[2017-06-02] MEDS: Docusate 100mg cap ORAL SCH ×3 (10:42→17:53)
[2017-06-02] MEDS: Tamsulosin 0.4mg cap ORAL SCH ×2 (10:44→17:53)
[2017-06-02] MEDS: DULoxetine 30mg cap ORAL SCH (10:44)
[2017-06-02] MEDS: Metoprolol Tartrate 50mg tab ORAL SCH ×2 (10:46→20:59)
[2017-06-02] MEDS: Heparin 5000 units/ml inj SUBQ SCH ×2 (10:58→21:04)
[2017-06-02] MEDS: Levemir Flexpen SUBQ SCH ×2 (11:02→21:03)
--- NOTE | 2017-06-02 11:45 | Nephrology Progress Note ---
Assessment/Plan Problem List: (1) Anemia in chronic kidney disease (2) HTN (hypertension) (3) CKD (chronic kidney disease), stage III (4) DM (diabetes mellitus) Assessment (1) CKD (chronic kidney disease), stage III, superimposed acute- Cr 3.1 a year ago now 5.4 with High K (2) Dehydration- Partly (3) Hyperglycemia due to type 2 diabetes mellitus (4) BPH (benign prostatic hypertrophy) (5) Nephropathy, diabetic (6) History of simultaneous kidney and pancreas transplant (7) UTI (urinary tract infection) (8) Anemia of CKD Plan Plan: Kayexelate Slow Hydrate- BP and BS control- Flomax PO- Kidney JOHNNY- monitor renal parameters Anemia [place] 2D Echo: Left ventricular ejection fraction estimated to be 55 %. No evidence of left ventricular hypertrophy. per orders Subjective ROS Limited/Unobtainable: No Constitutional: Reports: malaise, weakness Objective Objective Last 24 Hour Vital Signs Date Time Temp Pulse Resp B/P (MAP) Pulse Ox O2 Delivery O2 Flow Rate FiO2 06/02/17 10:48 87 170/90 06/02/17 10:46 87 170/90 06/02/17 08:23 98.1 81 18 155/79 94 06/01/17 23:53 98.6 77 18 144/75 94 Room Air 06/01/17 21:00 88 153/75 06/01/17 20:00 98.6 88 18 153/75 95 Room Air 06/01/17 19:10 92 18 Room Air 06/01/17 17:22 75 157/73 06/01/17 15:59 97.6 75 21 157/73 97 Room Air 06/01/17 12:16 98.1 77 21 153/73 99 Room Air Laboratory Tests 06/02/17 04:45: White Blood Count 6.5, Red Blood Count 2.43L, Hemoglobin 8.3L, Hematocrit 25.5L , Mean Corpuscular Volume 105H, Mean Corpuscular Hemoglobin 34.3H, Mean Corpuscular Hemoglobin Concent 32.7, Red Cell Distribution Width 14.4, Platelet Count 167, Mean Platelet Volume 6.8, Neutrophils (%) (Auto) 64.5, Lymphocytes (% ) (Auto) 19.6L, Monocytes (%) (Auto) 11.3H, Eosinophils (%) (Auto) 3.9H, Basophils (%) (Auto) 0.7, Sodium Level 137, Potassium Level 5.7H, Chloride Level 105, Carbon Dioxide Level 19L, Anion Gap 13, Blood Urea Nitrogen 75H, Creatinine 5.4H, Estimat Glomerular Filtration Rate 10.8, Glucose Level 425#H, Uric Acid 6.7, Calcium Level 8.2L, Phosphorus Level 3.8, Magnesium Level 1.8, Total Bilirubin 0.5, Aspartate Amino Transf (AST/SGOT) 13L, Alanine Aminotransferase (ALT/SGPT) 14, Alkaline Phosphatase 84, C-Reactive Protein, Quantitative 2.9H, Pro-B-Type Natriuretic Peptide 2471H, Total Protein 6.2L, Albumin 2.6L, Globulin 3.6, Albumin/Globulin Ratio 0.7L Height (Feet): 5 Height (Inches): 10.00 Weight (Pounds): 200 BERT ALONSO Jun 02, 2017 11:45
--- NOTE | 2017-06-02 11:49 | Internal Med Progress Note ---
Subjective Date of Service: Jun 02, 2017 Physician Name Maher,Dee Attending Physician Christopher Rosado MD Current Medications Medications (Trade) Dose Ordered Sig/Dunia Route PRN Reason Start Time Stop Time Status Last Admin Dose Admin Acetaminophen (Tylenol) 650 mg Q4H PRN ORAL fever 05/31/17 11:15 06/30/17 11:14 Albuterol/ Ipratropium (Albuterol/ Ipratropium) 3 ml Q6H PRN HHN dyspnea 05/31/17 11:15 06/05/17 11:14 Amlodipine Besylate (Norvasc) 5 mg BID ORAL 06/01/17 10:30 07/01/17 10:29 06/02/17 10:48 Aspirin (ASA) 81 mg DAILY ORAL 06/01/17 09:00 07/01/17 08:59 06/02/17 10:32 Atorvastatin Calcium (Lipitor) 10 mg BEDTIME ORAL 05/31/17 21:00 06/30/17 20:59 06/01/17 21:00 Chlorhexidine Gluconate (Eloisa-Hex 2%) 1 applic DAILY@2000 TOPIC 05/31/17 20:00 06/30/17 19:59 06/01/17 21:00 Dextrose (Dextrose 50%) STAT PRN IV Hypoglycemia 05/31/17 11:15 06/30/17 11:14 Docusate Sodium (Colace) 100 mg THREE TIMES A DAY ORAL 05/31/17 18:00 06/30/17 17:59 06/02/17 10:42 Duloxetine HCl (Cymbalta) 30 mg DAILY ORAL 06/02/17 09:00 07/02/17 08:59 06/02/17 10:44 Epoetin Jose (Procrit (for non ESRD use)) 10,000 units MON-WED-FRI SUBQ 06/02/17 21:00 07/02/17 20:59 UNV Heparin Sodium (Porcine) (Heparin 5000 units/ml) 5,000 units EVERY 12 HOURS SUBQ 05/31/17 21:00 06/30/17 20:59 06/02/17 10:58 Hydralazine HCl (Apresoline) 25 mg Q4H PRN ORAL bp of 160 syst and above 05/31/17 14:45 06/30/17 14:44 06/01/17 05:09 Hydralazine HCl (Apresoline) 25 mg Q8HR ORAL 06/02/17 14:00 07/02/17 13:59 UNV Insulin Aspart (NovoLOG) BEFORE MEALS AND HS SUBQ 05/31/17 11:30 06/30/17 11:29 06/02/17 05:25 Insulin Detemir (Levemir) 15 units BID@0900,2100 SUBQ 06/02/17 09:00 07/02/17 08:59 06/02/17 11:02 Lansoprazole (Prevacid) 30 mg DAILY ORAL 05/31/17 15:00 06/30/17 14:59 06/02/17 10:49 Metoprolol Tartrate (Lopressor) 50 mg Q12HR ORAL 05/31/17 12:00 06/30/17 11:59 06/02/17 10:46 Morphine Sulfate (Morphine Sulfate) 1 mg Q4H PRN IVP For Pain 05/31/17 11:15 06/07/17 11:14 06/01/17 04:20 Ondansetron HCl (Zofran) 4 mg Q6H PRN IVP Nausea & Vomiting 05/31/17 11:15 06/30/17 11:14 Polyethylene Glycol (Miralax) 17 gm HSPRN PRN ORAL Constipation 05/31/17 11:15 06/30/17 11:14 Sodium Chloride 1,000 ml @ 75 mls/hr [id number] IV 06/01/17 11:45 07/01/17 11:44 06/02/17 09:03 Tamsulosin HCl (Flomax) 0.4 mg BID ORAL 05/31/17 18:00 06/30/17 17:59 06/02/17 10:44 Zolpidem Tartrate (Ambien) 5 mg HSPRN PRN ORAL Insomnia 05/31/17 11:15 06/07/17 11:14 Allergies: Coded Allergies: CEFEPIME (Verified Allergy, Intermediate, Rash, 01/23/13) ROS Limited/Unobtainable: No Constitutional: Reports: no symptoms HEENT: Reports: no symptoms Cardiovascular: Reports: no symptoms Respiratory: Reports: no symptoms Gastrointestinal/Abdominal: Reports: no symptoms Genitourinary: Reports: no symptoms Neurologic/Psychiatric: Reports: no symptoms Subjective 62 YO M admitted with hematuria. Continues hyperkalemic. Cover for Int Pierre - Dr Rosado. Await Urology consult. Objective Last Vital Signs Date Time Temp Pulse Resp B/P (MAP) Pulse Ox O2 Delivery O2 Flow Rate FiO2 06/02/17 10:48 87 170/90 06/02/17 08:23 98.1 18 94 06/01/17 23:53 Room Air Laboratory Tests Test 06/02/17 04:45 White Blood Count 6.5 K/UL (4.8-10.8) Red Blood Count 2.43 M/UL (4.70-6.10) L Hemoglobin 8.3 G/DL (14.2-18.0) L Hematocrit 25.5 % (42.0-52.0) L Mean Corpuscular Volume 105 FL (80-99) H Mean Corpuscular Hemoglobin 34.3 PG (27.0-31.0) H Mean Corpuscular Hemoglobin Concent 32.7 G/DL (32.0-36.0) Red Cell Distribution Width 14.4 % (11.6-14.8) Platelet Count 167 K/UL (150-450) Mean Platelet Volume 6.8 FL (6.5-10.1) Neutrophils (%) (Auto) 64.5 % (45.0-75.0) Lymphocytes (%) (Auto) 19.6 % (20.0-45.0) L Monocytes (%) (Auto) 11.3 % (1.0-10.0) H Eosinophils (%) (Auto) 3.9 % (0.0-3.0) H Basophils (%) (Auto) 0.7 % (0.0-2.0) Sodium Level 137 MMOL/L (136-145) Potassium Level 5.7 MMOL/L (3.5-5.1) H Chloride Level 105 MMOL/L (98-107) Carbon Dioxide Level 19 MMOL/L (21-32) L Anion Gap 13 mmol/L (5-15) Blood Urea Nitrogen 75 mg/dL (7-18) H Creatinine 5.4 MG/DL (0.55-1.30) H Estimat Glomerular Filtration Rate 10.8 mL/min (>60) Glucose Level 425 MG/DL (74-106) #H Uric Acid 6.7 MG/DL (2.6-7.2) Calcium Level 8.2 MG/DL (8.5-10.1) L Phosphorus Level 3.8 MG/DL (2.5-4.9) Magnesium Level 1.8 MG/DL (1.8-2.4) Total Bilirubin 0.5 MG/DL (0.2-1.0) Aspartate Amino Transf (AST/SGOT) 13 U/L (15-37) L Alanine Aminotransferase (ALT/SGPT) 14 U/L (12-78) Alkaline Phosphatase 84 U/L (46-116) C-Reactive Protein, Quantitative 2.9 mg/dL (0.00-0.90) H Pro-B-Type Natriuretic Peptide 2471 pg/mL (0-125) H Total Protein 6.2 G/DL (6.4-8.2) L Albumin 2.6 G/DL (3.4-5.0) L Globulin 3.6 g/dL Albumin/Globulin Ratio 0.7 (1.0-2.7) L Objective General Appearance: WD/WN, no apparent distress, alert EENT: PERRL/EOMI, normal ENT inspection, TMs normal Neck: non-tender, normal alignment, supple, normal inspection Cardiovascular: normal peripheral pulses, normal rate, regular rhythm, no gallop/murmur, no JVD Respiratory/Chest: chest wall non-tender, lungs clear, normal breath sounds, no respiratory distress, no accessory muscle use Abdomen: normal bowel sounds, non tender, soft, no organomegaly, no mass 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 (5) CAD (coronary artery disease) (6) Acute on chronic renal failure Assessment & Plan: See nephrology note. Await renal ultrasound. (7) Anemia in chronic kidney disease (8) DM (diabetes mellitus) Assessment & Plan: Continue novolog sliding scale. (9) History of simultaneous kidney and pancreas transplant (10) BPH (benign prostatic hyperplasia) Assessment & Plan: continue flomax (11) Gastritis Assessment & Plan: Continue prevacid (12) Hypercholesteremia Assessment & Plan: Continue lipitor (13) Hematuria Assessment & Plan: Await urology consult-R/O bladder cancer. Status: progressing DEE MAHER Jun 02, 2017 11:49
[2017-06-02] MEDS: HydrALAZINE 25mg tab ORAL PRN (12:08)
[2017-06-02 12:30] VITALS: BP 182/93
--- NOTE | 2017-06-02 13:48 | Pulmonology Progress Note ---
Assessment/Plan Problems: (1) Hematuria (2) Pulmonary HTN (3) Anemia in chronic kidney disease (4) CAD (coronary artery disease) (5) HTN (hypertension) (6) DM (diabetes mellitus) Assessment/Plan no new complains H/H stable IV fluids check electrolytes monitor BP sliding scale. Subjective ROS Limited/Unobtainable: No Constitutional: Reports: no symptoms HEENT: Repors: no symptoms Respiratory: Reports: no symptoms Cardiovascular: Reports: no symptoms Allergies: Coded Allergies: CEFEPIME (Verified Allergy, Intermediate, Rash, 01/23/13) Objective Last 24 Hour Vital Signs Date Time Temp Pulse Resp B/P (MAP) Pulse Ox O2 Delivery O2 Flow Rate FiO2 06/02/17 13:20 97 18 Room Air 06/02/17 12:30 97.7 80 18 182/93 97 06/02/17 12:08 181/91 06/02/17 10:48 87 170/90 06/02/17 10:46 87 170/90 06/02/17 08:23 98.1 81 18 155/79 94 06/01/17 23:53 98.6 77 18 144/75 94 Room Air 06/01/17 21:00 88 153/75 06/01/17 20:00 98.6 88 18 153/75 95 Room Air 06/01/17 19:10 92 18 Room Air 06/01/17 17:22 75 157/73 06/01/17 15:59 97.6 75 21 157/73 97 Room Air Objective General Appearance: WD/WN HEENT: normocephalic, anicteric Cardiovascular: normal peripheral pulses, normal rate Abdomen: normal bowel sounds, no organomegaly Genitourinary: normal external genitalia Extremities: no clubbing Skin: no lesions Lymphatic: no neck adenopathy Laboratory Tests 06/02/17 04:45: White Blood Count 6.5, Red Blood Count 2.43L, Hemoglobin 8.3L, Hematocrit 25.5L , Mean Corpuscular Volume 105H, Mean Corpuscular Hemoglobin 34.3H, Mean Corpuscular Hemoglobin Concent 32.7, Red Cell Distribution Width 14.4, Platelet Count 167, Mean Platelet Volume 6.8, Neutrophils (%) (Auto) 64.5, Lymphocytes (% ) (Auto) 19.6L, Monocytes (%) (Auto) 11.3H, Eosinophils (%) (Auto) 3.9H, Basophils (%) (Auto) 0.7, Sodium Level 137, Potassium Level 5.7H, Chloride Level 105, Carbon Dioxide Level 19L, Anion Gap 13, Blood Urea Nitrogen 75H, Creatinine 5.4H, Estimat Glomerular Filtration Rate 10.8, Glucose Level 425#H, Uric Acid 6.7, Calcium Level 8.2L, Phosphorus Level 3.8, Magnesium Level 1.8, Total Bilirubin 0.5, Aspartate Amino Transf (AST/SGOT) 13L, Alanine Aminotransferase (ALT/SGPT) 14, Alkaline Phosphatase 84, C-Reactive Protein, Quantitative 2.9H, Pro-B-Type Natriuretic Peptide 2471H, Total Protein 6.2L, Albumin 2.6L, Globulin 3.6, Albumin/Globulin Ratio 0.7L Current Medications Medications (Trade) Dose Ordered Sig/Dunia Route PRN Reason Start Time Stop Time Status Last Admin Dose Admin Acetaminophen (Tylenol) 650 mg Q4H PRN ORAL fever 05/31/17 11:15 06/30/17 11:14 Albuterol/ Ipratropium (Albuterol/ Ipratropium) 3 ml Q6H PRN HHN dyspnea 05/31/17 11:15 06/05/17 11:14 Amlodipine Besylate (Norvasc) 5 mg BID ORAL 06/01/17 10:30 07/01/17 10:29 06/02/17 10:48 Aspirin (ASA) 81 mg DAILY ORAL 06/01/17 09:00 07/01/17 08:59 06/02/17 10:32 Atorvastatin Calcium (Lipitor) 10 mg BEDTIME ORAL 05/31/17 21:00 06/30/17 20:59 06/01/17 21:00 Chlorhexidine Gluconate (Eloisa-Hex 2%) 1 applic DAILY@1999 TOPIC 05/31/17 20:00 06/30/17 19:59 06/01/17 21:00 Dextrose (Dextrose 50%) STAT PRN IV Hypoglycemia 05/31/17 11:15 06/30/17 11:14 Docusate Sodium (Colace) 100 mg THREE TIMES A DAY ORAL 05/31/17 18:00 06/30/17 17:59 06/02/17 13:19 Duloxetine HCl (Cymbalta) 30 mg DAILY ORAL 06/02/17 09:00 07/02/17 08:59 06/02/17 10:44 Epoetin Jose (Procrit (for non ESRD use)) 10,000 units WED-WED-WED SUBQ 06/02/17 21:00 07/02/17 20:59 Heparin Sodium (Porcine) (Heparin 5000 units/ml) 5,000 units EVERY 12 HOURS SUBQ 05/31/17 21:00 06/30/17 20:59 06/02/17 10:58 Hydralazine HCl (Apresoline) 25 mg Q4H PRN ORAL bp of 160 syst and above 05/31/17 14:45 06/30/17 14:44 06/02/17 12:08 Hydralazine HCl (Apresoline) 25 mg Q8HR ORAL 06/02/17 14:00 07/02/17 13:59 Insulin Aspart (NovoLOG) BEFORE MEALS AND HS SUBQ 05/31/17 11:30 06/30/17 11:29 06/02/17 13:21 Insulin Detemir (Levemir) 15 units BID@0900,2100 SUBQ 06/02/17 09:00 07/02/17 08:59 06/02/17 11:02 Lansoprazole (Prevacid) 30 mg DAILY ORAL 05/31/17 15:00 06/30/17 14:59 06/02/17 10:49 Metoprolol Tartrate (Lopressor) 50 mg Q12HR ORAL 05/31/17 12:00 06/30/17 11:59 06/02/17 10:46 Morphine Sulfate (Morphine Sulfate) 1 mg Q4H PRN IVP For Pain 05/31/17 11:15 06/07/17 11:14 06/01/17 04:20 Ondansetron HCl (Zofran) 4 mg Q6H PRN IVP Nausea & Vomiting 05/31/17 11:15 06/30/17 11:14 Polyethylene Glycol (Miralax) 17 gm HSPRN PRN ORAL Constipation 05/31/17 11:15 06/30/17 11:14 Sodium Chloride 1,000 ml @ 75 mls/hr [id number] IV 06/01/17 11:45 07/01/17 11:44 06/02/17 09:03 Tamsulosin HCl (Flomax) 0.4 mg BID ORAL 05/31/17 18:00 06/30/17 17:59 06/02/17 10:44 Zolpidem Tartrate (Ambien) 5 mg HSPRN PRN ORAL Insomnia 05/31/17 11:15 06/07/17 11:14 MARGO GALLEGOS Jun 02, 2017 13:48
[2017-06-02] MEDS: HydrALAZINE 25mg tab ORAL SCH ×2 (14:00→21:01)
--- NOTE | 2017-06-02 15:56 | General Progress Note ---
Assessment/Plan Status: stable Assessment/Plan mdd cont lorrainealta Subjective Date patient seen: Jun 02, 2017 Neurologic/Psychiatric: Reports: anxiety, depressed, emotional problems Allergies: Coded Allergies: CEFEPIME (Verified Allergy, Intermediate, Rash, 01/23/13) Subjective the pt is withdrawn min verbal Objective Last 24 Hour Vital Signs Date Time Temp Pulse Resp B/P (MAP) Pulse Ox O2 Delivery O2 Flow Rate FiO2 06/02/17 13:20 97 18 Room Air 06/02/17 12:30 97.7 80 18 182/93 97 06/02/17 12:08 181/91 06/02/17 10:48 87 170/90 06/02/17 10:46 87 170/90 06/02/17 08:23 98.1 81 18 155/79 94 06/01/17 23:53 98.6 77 18 144/75 94 Room Air 06/01/17 21:00 88 153/75 06/01/17 20:00 98.6 88 18 153/75 95 Room Air 06/01/17 19:10 92 18 Room Air 06/01/17 17:22 75 157/73 06/01/17 15:59 97.6 75 21 157/73 97 Room Air Intake and Output 06/02/17 06/03/17 19:00 07:00 Intake Total 480 ml Output Total 400 ml Balance 80 ml Intake Oral 480 ml Output Urine Total 400 ml Laboratory Tests 06/02/17 04:45: White Blood Count 6.5, Red Blood Count 2.43L, Hemoglobin 8.3L, Hematocrit 25.5L , Mean Corpuscular Volume 105H, Mean Corpuscular Hemoglobin 34.3H, Mean Corpuscular Hemoglobin Concent 32.7, Red Cell Distribution Width 14.4, Platelet Count 167, Mean Platelet Volume 6.8, Neutrophils (%) (Auto) 64.5, Lymphocytes (% ) (Auto) 19.6L, Monocytes (%) (Auto) 11.3H, Eosinophils (%) (Auto) 3.9H, Basophils (%) (Auto) 0.7, Sodium Level 137, Potassium Level 5.7H, Chloride Level 105, Carbon Dioxide Level 19L, Anion Gap 13, Blood Urea Nitrogen 75H, Creatinine 5.4H, Estimat Glomerular Filtration Rate 10.8, Glucose Level 425#H, Uric Acid 6.7, Calcium Level 8.2L, Phosphorus Level 3.8, Magnesium Level 1.8, Total Bilirubin 0.5, Aspartate Amino Transf (AST/SGOT) 13L, Alanine Aminotransferase (ALT/SGPT) 14, Alkaline Phosphatase 84, C-Reactive Protein, Quantitative 2.9H, Pro-B-Type Natriuretic Peptide 2471H, Total Protein 6.2L, Albumin 2.6L, Globulin 3.6, Albumin/Globulin Ratio 0.7L Height (Feet): 5 Height (Inches): 10.00 Weight (Pounds): 200 General Appearance: no apparent distress, alert Neurologic: alert, oriented x 3, responsive Fatmata Lu M.D. Jun 02, 2017 15:56
[2017-06-02 16:10] VITALS: BP 140/75
[2017-06-02 20:00] VITALS: BP 132/71
[2017-06-02] MEDS: Dyna-Hex 2% Top Sol 2oz TOPIC SCH (20:58)
[2017-06-02] MEDS: Epogen (for non ESRD use) SUBQ SCH (21:01)
[2017-06-03 04:44] VITALS: BP 131/67
[2017-06-03] MEDS: NovoLOG Insulin Flexpen SUBQ SCH ×7 (06:16→21:58)
[2017-06-03] MEDS: HydrALAZINE 25mg tab ORAL SCH ×3 (06:16→21:54)
[2017-06-03 07:16] LABS: BASOPHILS % (AUTO) 0.8 % (0.0-2.0); LYMPHOCYTES % (AUTO) 19.4 % (20.0-45.0); MEAN CORPUSCULAR HEMOGLOBIN 34.2 PG (27.0-31.0); MEAN CORPUSCULAR HGB CONC 33.6 G/DL (32.0-36.0); MEAN CORPUSCULAR VOLUME 102 FL (80-99); MEAN PLATELET VOLUME 6.2 FL (6.5-10.1); MONOCYTES % (AUTO) 9.1 % (1.0-10.0); NEUTROPHILS % (AUTO) 66.8 % (45.0-75.0); PLATELET COUNT 211 K/UL (150-450); RED BLOOD COUNT 2.51 M/UL (4.70-6.10); RED CELL DISTRIBUTION WIDTH 13.9 % (11.6-14.8)
--- NOTE | 2017-06-03 07:27 | General Progress Note ---
Assessment/Plan Problem List: (1) hematuria (2) CKD (chronic kidney disease), stage III ICD Codes: N18.3 - CKD (chronic kidney disease), stage III SNOMED: 117069099 (3) Anemia in chronic kidney disease ICD Codes: D63.1 - Anemia in chronic kidney disease; N03.9 - Anemia in chronic kidney disease SNOMED: 501918597 (4) Hypoparathyroidism ICD Codes: E20.9 - Hypoparathyroidism, unspecified SNOMED: 60550331 (5) DM (diabetes mellitus) ICD Codes: E11.9 - DM (diabetes mellitus) SNOMED: 47824588 Assessment/Plan reduce Levemir to 10 units bid continue Novolog as is + SSI Subjective Allergies: Coded Allergies: CEFEPIME (Verified Allergy, Intermediate, Rash, 01/23/13) All Systems: reviewed and negative except above Subjective patient is well known to me admitted from [facility] with hematuria Objective Last 24 Hour Vital Signs Date Time Temp Pulse Resp B/P (MAP) Pulse Ox O2 Delivery O2 Flow Rate FiO2 06/03/17 06:16 131/67 06/03/17 04:44 97.6 63 20 131/67 95 06/02/17 21:01 132/71 06/02/17 20:59 65 132/71 06/02/17 20:00 96 Room Air 06/02/17 20:00 97.5 65 20 132/71 96 Room Air 06/02/17 19:00 65 18 Room Air 06/02/17 17:54 77 140/75 06/02/17 16:10 98.4 77 20 140/75 98 06/02/17 13:20 97 18 Room Air 06/02/17 12:30 97.7 80 18 182/93 97 06/02/17 12:08 181/91 06/02/17 10:48 87 170/90 06/02/17 10:46 87 170/90 06/02/17 08:23 98.1 81 18 155/79 94 Laboratory Tests 06/03/17 05:00: White Blood Count 8.0, Red Blood Count 2.51L, Hemoglobin 8.6L, Hematocrit 25.6L , Mean Corpuscular Volume 102H, Mean Corpuscular Hemoglobin 34.2H, Mean Corpuscular Hemoglobin Concent 33.6, Red Cell Distribution Width 13.9, Platelet Count 211, Mean Platelet Volume 6.2L, Neutrophils (%) (Auto) 66.8, Lymphocytes ( %) (Auto) 19.4L, Monocytes (%) (Auto) 9.1, Eosinophils (%) (Auto) 4.0H, Basophils (%) (Auto) 0.8, Sodium Level [Pending], Potassium Level [Pending], Chloride Level [Pending], Carbon Dioxide Level [Pending], Blood Urea Nitrogen [ Pending], Creatinine [Pending], Estimat Glomerular Filtration Rate [Pending], Glucose Level [Pending], Calcium Level [Pending], Phosphorus Level [Pending], Magnesium Level [Pending], Total Bilirubin [Pending], Aspartate Amino Transf ( AST/SGOT) [Pending], Alanine Aminotransferase (ALT/SGPT) [Pending], Alkaline Phosphatase [Pending], Total Protein [Pending], Albumin [Pending], Globulin [ Pending], Hepatitis B Surface Antigen [Pending], Hepatitis B Surface Antibody, Quant [Pending], Hepatitis C Antibody [Pending] Height (Feet): 5 Height (Inches): 10.00 Weight (Pounds): 200 General Appearance: no apparent distress Neck: normal alignment Cardiovascular: normal rate Respiratory/Chest: lungs clear Abdomen: normal bowel sounds Edema: 1+ Arm (L), 1+ Arm (R), 1+ Leg (L), 1+ Leg (R), 1+ Pedal (L), 1+ Pedal ( R), 1+ Generalized Objective Current Medications Medications (Trade) Dose Ordered Sig/Dunia Route PRN Reason Start Time Stop Time Status Last Admin Dose Admin Acetaminophen (Tylenol) 650 mg Q4H PRN ORAL fever 05/31/17 11:15 06/30/17 11:14 Albuterol/ Ipratropium (Albuterol/ Ipratropium) 3 ml Q6H PRN HHN dyspnea 05/31/17 11:15 06/05/17 11:14 Amlodipine Besylate (Norvasc) 5 mg BID ORAL 06/01/17 10:30 07/01/17 10:29 06/02/17 17:54 Aspirin (ASA) 81 mg DAILY ORAL 06/01/17 09:00 07/01/17 08:59 06/02/17 10:32 Atorvastatin Calcium (Lipitor) 10 mg BEDTIME ORAL 05/31/17 21:00 06/30/17 20:59 06/02/17 20:59 Chlorhexidine Gluconate (Eloisa-Hex 2%) 1 applic DAILY@2000 TOPIC 05/31/17 20:00 06/30/17 19:59 06/02/17 20:58 Dextrose (Dextrose 50%) STAT PRN IV Hypoglycemia 05/31/17 11:15 06/30/17 11:14 Docusate Sodium (Colace) 100 mg THREE TIMES A DAY ORAL 05/31/17 18:00 06/30/17 17:59 06/02/17 17:53 Duloxetine HCl (Cymbalta) 30 mg DAILY ORAL 06/02/17 09:00 07/02/17 08:59 06/02/17 10:44 Epoetin Jose (Procrit (for non ESRD use)) 10,000 units WED-WED-WED SUBQ 06/02/17 21:00 07/02/17 20:59 06/02/17 21:01 Heparin Sodium (Porcine) (Heparin 5000 units/ml) 5,000 units EVERY 12 HOURS SUBQ 05/31/17 21:00 06/30/17 20:59 06/02/17 21:04 Hydralazine HCl (Apresoline) 25 mg Q4H PRN ORAL bp of 160 syst and above 05/31/17 14:45 06/30/17 14:44 06/02/17 12:08 Hydralazine HCl (Apresoline) 25 mg Q8HR ORAL 06/02/17 14:00 07/02/17 13:59 06/03/17 06:16 Insulin Aspart (NovoLOG) BEFORE MEALS AND HS SUBQ 05/31/17 11:30 06/30/17 11:29 06/02/17 21:02 Insulin Aspart (NovoLOG) 6 units NOVOTIAC SUBQ 06/02/17 18:00 07/02/17 17:59 06/02/17 17:55 Insulin Detemir (Levemir) 15 units BID@0900,2100 SUBQ 06/02/17 09:00 07/02/17 08:59 06/02/17 21:03 Lansoprazole (Prevacid) 30 mg DAILY ORAL 05/31/17 15:00 06/30/17 14:59 06/02/17 10:49 Metoprolol Tartrate (Lopressor) 50 mg Q12HR ORAL 05/31/17 12:00 06/30/17 11:59 06/02/17 20:59 Morphine Sulfate (Morphine Sulfate) 1 mg Q4H PRN IVP For Pain 05/31/17 11:15 06/07/17 11:14 06/01/17 04:20 Ondansetron HCl (Zofran) 4 mg Q6H PRN IVP Nausea & Vomiting 05/31/17 11:15 06/30/17 11:14 Polyethylene Glycol (Miralax) 17 gm HSPRN PRN ORAL Constipation 05/31/17 11:15 06/30/17 11:14 Sodium Chloride 1,000 ml @ 75 mls/hr [id number] IV 06/01/17 11:45 07/01/17 11:44 06/02/17 21:58 Tamsulosin HCl (Flomax) 0.4 mg BID ORAL 05/31/17 18:00 06/30/17 17:59 06/02/17 17:53 Zolpidem Tartrate (Ambien) 5 mg HSPRN PRN ORAL Insomnia 05/31/17 11:15 06/07/17 11:14 Item Value Date Time Bedside Blood Glucose 42 mg/dl L 06/03/17 0617 Bedside Blood Glucose 226 mg/dl H 06/02/17 2131 Bedside Blood Glucose 455 mg/dl H 06/02/17 1756 Bedside Blood Glucose Critically High Result 06/02/17 1321 MALKA SHERIFF Jun 03, 2017 07:27
[2017-06-03 07:49] LABS: ALANINE AMINOTRANSFERASE 17 U/L (12-78); ALBUMIN/GLOBULIN RATIO 0.7 (1.0-2.7); ANION GAP 12 mmol/L (5-15); ASPARTATE AMINO TRANSFERASE 14 U/L (15-37); CALCIUM 8.3 MG/DL (8.5-10.1); CARBON DIOXIDE 20 MMOL/L (21-32); CHLORIDE 107 MMOL/L (98-107); GLOMERULAR FILTRATION RATE 11.8 mL/min (>60); MAGNESIUM 1.7 MG/DL (1.8-2.4); PHOSPHORUS 4.9 MG/DL (2.5-4.9); SODIUM 139 MMOL/L (136-145); TOTAL PROTEIN 6.2 G/DL (6.4-8.2)
[2017-06-03 08:03] VITALS: BP 123/59
--- NOTE | 2017-06-03 09:42 | Nephrology Progress Note ---
Assessment/Plan Problem List: (1) Anemia in chronic kidney disease (2) HTN (hypertension) (3) CKD (chronic kidney disease), stage III (4) DM (diabetes mellitus) Assessment (1) CKD (chronic kidney disease), stage III, superimposed acute- Cr 3.1 a year ago now 5.0 (2) Dehydration- Partly (3) Hyperglycemia due to type 2 diabetes mellitus (4) BPH (benign prostatic hypertrophy) (5) Nephropathy, diabetic (6) History of simultaneous kidney and pancreas transplant (7) UTI (urinary tract infection) (8) Anemia of CKD Plan Plan: Kayexelate Slow Hydrate- BP and BS control- Flomax PO- Kidney JOHNNY- monitor renal parameters Anemia [place] 2D Echo: Left ventricular ejection fraction estimated to be 55 %. No evidence of left ventricular hypertrophy. per orders Subjective ROS Limited/Unobtainable: No Constitutional: Reports: malaise Objective Objective Last 24 Hour Vital Signs Date Time Temp Pulse Resp B/P (MAP) Pulse Ox O2 Delivery O2 Flow Rate FiO2 06/03/17 08:14 75 18 Room Air 06/03/17 08:03 97.2 71 21 123/59 99 Room Air 06/03/17 06:16 131/67 06/03/17 04:44 97.6 63 20 131/67 95 06/02/17 21:01 132/71 06/02/17 20:59 65 132/71 06/02/17 20:00 96 Room Air 06/02/17 20:00 97.5 65 20 132/71 96 Room Air 06/02/17 19:00 65 18 Room Air 06/02/17 17:54 77 140/75 06/02/17 16:10 98.4 77 20 140/75 98 06/02/17 13:20 97 18 Room Air 06/02/17 12:30 97.7 80 18 182/93 97 06/02/17 12:08 181/91 06/02/17 10:48 87 170/90 06/02/17 10:46 87 170/90 Intake and Output 06/03/17 06/04/17 19:00 07:00 Intake Total 240 ml Balance 240 ml Intake Oral 240 ml # Voids 2 Laboratory Tests 06/03/17 05:00: White Blood Count 8.0, Red Blood Count 2.51L, Hemoglobin 8.6L, Hematocrit 25.6L , Mean Corpuscular Volume 102H, Mean Corpuscular Hemoglobin 34.2H, Mean Corpuscular Hemoglobin Concent 33.6, Red Cell Distribution Width 13.9, Platelet Count 211, Mean Platelet Volume 6.2L, Neutrophils (%) (Auto) 66.8, Lymphocytes ( %) (Auto) 19.4L, Monocytes (%) (Auto) 9.1, Eosinophils (%) (Auto) 4.0H, Basophils (%) (Auto) 0.8, Sodium Level 139, Potassium Level 4.0, Chloride Level 107, Carbon Dioxide Level 20L, Anion Gap 12, Blood Urea Nitrogen 73H, Creatinine 5.0H, Estimat Glomerular Filtration Rate 11.8, Glucose Level 32#*L, Calcium Level 8.3L, Phosphorus Level 4.9, Magnesium Level 1.7L, Total Bilirubin 0.6, Aspartate Amino Transf (AST/SGOT) 14L, Alanine Aminotransferase (ALT/SGPT) 17, Alkaline Phosphatase 82, Total Protein 6.2L, Albumin 2.6L, Globulin 3.6, Albumin/Globulin Ratio 0.7L, Hepatitis B Surface Antigen [Pending], Hepatitis B Surface Antibody, Quant [Pending], Hepatitis C Antibody [Pending] Height (Feet): 5 Height (Inches): 10.00 Weight (Pounds): 200 General Appearance: no apparent distress Cardiovascular: normal rate Respiratory/Chest: decreased breath sounds Abdomen: soft Objective no change BERT ALONSO Jun 03, 2017 09:42
[2017-06-03] MEDS: Docusate 100mg cap ORAL SCH ×3 (09:43→18:10)
[2017-06-03] MEDS: Aspirin Baby 81mg ORAL SCH (09:44)
[2017-06-03] MEDS: DULoxetine 30mg cap ORAL SCH (09:44)
[2017-06-03] MEDS: Tamsulosin 0.4mg cap ORAL SCH ×2 (09:44→18:10)
[2017-06-03] MEDS: Heparin 5000 units/ml inj SUBQ SCH ×2 (09:47→21:55)
[2017-06-03] MEDS: Metoprolol Tartrate 50mg tab ORAL SCH ×2 (09:50→21:54)
[2017-06-03] MEDS: Levemir Flexpen SUBQ SCH ×2 (10:08→21:57)
--- NOTE | 2017-06-03 11:31 | Pulmonology Progress Note ---
Assessment/Plan Problems: (1) Hematuria (2) Pulmonary HTN (3) Anemia in chronic kidney disease (4) CAD (coronary artery disease) (5) HTN (hypertension) (6) DM (diabetes mellitus) Assessment/Plan Bs was very low this morning adjust insulin no new complains H/H stable IV fluids check electrolytes monitor BP sliding scale. Subjective ROS Limited/Unobtainable: No Constitutional: Reports: no symptoms Respiratory: Reports: no symptoms Allergies: Coded Allergies: CEFEPIME (Verified Allergy, Intermediate, Rash, 01/23/13) Objective Last 24 Hour Vital Signs Date Time Temp Pulse Resp B/P (MAP) Pulse Ox O2 Delivery O2 Flow Rate FiO2 06/03/17 09:50 82 154/70 06/03/17 09:45 82 154/70 06/03/17 08:14 75 18 Room Air 06/03/17 08:03 97.2 71 21 123/59 99 Room Air 06/03/17 06:16 131/67 06/03/17 04:44 97.6 63 20 131/67 95 06/02/17 21:01 132/71 06/02/17 20:59 65 132/71 06/02/17 20:00 96 Room Air 06/02/17 20:00 97.5 65 20 132/71 96 Room Air 06/02/17 19:00 65 18 Room Air 06/02/17 17:54 77 140/75 06/02/17 16:10 98.4 77 20 140/75 98 06/02/17 13:20 97 18 Room Air 06/02/17 12:30 97.7 80 18 182/93 97 06/02/17 12:08 181/91 Intake and Output 06/03/17 06/04/17 19:00 07:00 Intake Total 540 ml Balance 540 ml Intake Oral 240 ml IV Total 300 ml # Voids 2 Objective General Appearance: WD/WN HEENT: normocephalic, anicteric Cardiovascular: normal peripheral pulses, normal rate Abdomen: normal bowel sounds, no organomegaly Genitourinary: normal external genitalia Extremities: no clubbing Skin: no lesions Lymphatic: no neck adenopathy Laboratory Tests 06/03/17 05:00: White Blood Count 8.0, Red Blood Count 2.51L, Hemoglobin 8.6L, Hematocrit 25.6L , Mean Corpuscular Volume 102H, Mean Corpuscular Hemoglobin 34.2H, Mean Corpuscular Hemoglobin Concent 33.6, Red Cell Distribution Width 13.9, Platelet Count 211, Mean Platelet Volume 6.2L, Neutrophils (%) (Auto) 66.8, Lymphocytes ( %) (Auto) 19.4L, Monocytes (%) (Auto) 9.1, Eosinophils (%) (Auto) 4.0H, Basophils (%) (Auto) 0.8, Sodium Level 139, Potassium Level 4.0, Chloride Level 107, Carbon Dioxide Level 20L, Anion Gap 12, Blood Urea Nitrogen 73H, Creatinine 5.0H, Estimat Glomerular Filtration Rate 11.8, Glucose Level 32#*L, Calcium Level 8.3L, Phosphorus Level 4.9, Magnesium Level 1.7L, Total Bilirubin 0.6, Aspartate Amino Transf (AST/SGOT) 14L, Alanine Aminotransferase (ALT/SGPT) 17, Alkaline Phosphatase 82, Total Protein 6.2L, Albumin 2.6L, Globulin 3.6, Albumin/Globulin Ratio 0.7L, Hepatitis B Surface Antigen [Pending], Hepatitis B Surface Antibody, Quant [Pending], Hepatitis C Antibody [Pending] Current Medications Medications (Trade) Dose Ordered Sig/Dunia Route PRN Reason Start Time Stop Time Status Last Admin Dose Admin Acetaminophen (Tylenol) 650 mg Q4H PRN ORAL fever 05/31/17 11:15 06/30/17 11:14 Albuterol/ Ipratropium (Albuterol/ Ipratropium) 3 ml Q6H PRN HHN dyspnea 05/31/17 11:15 06/05/17 11:14 Amlodipine Besylate (Norvasc) 5 mg BID ORAL 06/01/17 10:30 07/01/17 10:29 06/03/17 09:45 Aspirin (ASA) 81 mg DAILY ORAL 06/01/17 09:00 07/01/17 08:59 06/03/17 09:44 Atorvastatin Calcium (Lipitor) 10 mg BEDTIME ORAL 05/31/17 21:00 06/30/17 20:59 06/02/17 20:59 Chlorhexidine Gluconate (Eloisa-Hex 2%) 1 applic DAILY@1999 TOPIC 05/31/17 20:00 06/30/17 19:59 06/02/17 20:58 Dextrose (Dextrose 50%) STAT PRN IV Hypoglycemia 05/31/17 11:15 06/30/17 11:14 Docusate Sodium (Colace) 100 mg THREE TIMES A DAY ORAL 05/31/17 18:00 06/30/17 17:59 06/03/17 09:43 Duloxetine HCl (Cymbalta) 30 mg DAILY ORAL 06/02/17 09:00 07/02/17 08:59 06/03/17 09:44 Epoetin Jose (Procrit (for non ESRD use)) 10,000 units WED-WED-WED SUBQ 06/02/17 21:00 07/02/17 20:59 06/02/17 21:01 Heparin Sodium (Porcine) (Heparin 5000 units/ml) 5,000 units EVERY 12 HOURS SUBQ 05/31/17 21:00 06/30/17 20:59 06/03/17 09:47 Hydralazine HCl (Apresoline) 25 mg Q4H PRN ORAL bp of 160 syst and above 05/31/17 14:45 06/30/17 14:44 06/02/17 12:08 Hydralazine HCl (Apresoline) 25 mg Q8HR ORAL 06/02/17 14:00 07/02/17 13:59 06/03/17 06:16 Insulin Aspart (NovoLOG) BEFORE MEALS AND HS SUBQ 05/31/17 11:30 06/30/17 11:29 06/02/17 21:02 Insulin Aspart (NovoLOG) 6 units NOVOTIAC SUBQ 06/02/17 18:00 07/02/17 17:59 06/02/17 17:55 Insulin Detemir (Levemir) 10 units BID@0900,2100 SUBQ 06/03/17 09:00 07/03/17 08:59 06/03/17 10:08 Lansoprazole (Prevacid) 30 mg DAILY ORAL 05/31/17 15:00 06/30/17 14:59 06/03/17 09:45 Metoprolol Tartrate (Lopressor) 50 mg Q12HR ORAL 05/31/17 12:00 06/30/17 11:59 06/03/17 09:50 Morphine Sulfate (Morphine Sulfate) 1 mg Q4H PRN IVP For Pain 05/31/17 11:15 11/27/17 11:14 06/01/17 04:20 Ondansetron HCl (Zofran) 4 mg Q6H PRN IVP Nausea & Vomiting 05/31/17 11:15 06/30/17 11:14 Polyethylene Glycol (Miralax) 17 gm HSPRN PRN ORAL Constipation 05/31/17 11:15 06/30/17 11:14 Sodium Chloride 1,000 ml @ 75 mls/hr [id number] IV 06/01/17 11:45 07/01/17 11:44 06/02/17 21:58 Tamsulosin HCl (Flomax) 0.4 mg BID ORAL 05/31/17 18:00 06/30/17 17:59 06/03/17 09:44 Zolpidem Tartrate (Ambien) 5 mg HSPRN PRN ORAL Insomnia 05/31/17 11:15 06/07/17 11:14 MARGO GALLEGOS Jun 03, 2017 11:31
[2017-06-03 12:00] VITALS: BP 148/74
--- NOTE | 2017-06-03 12:42 | Internal Med Progress Note ---
Subjective Date of Service: Jun 03, 2017 Physician Name MaherDee Attending Physician Christopher Rosado MD Current Medications Medications (Trade) Dose Ordered Sig/Dunia Route PRN Reason Start Time Stop Time Status Last Admin Dose Admin Acetaminophen (Tylenol) 650 mg Q4H PRN ORAL fever 05/31/17 11:15 06/30/17 11:14 Albuterol/ Ipratropium (Albuterol/ Ipratropium) 3 ml Q6H PRN HHN dyspnea 05/31/17 11:15 06/05/17 11:14 Amlodipine Besylate (Norvasc) 5 mg BID ORAL 06/01/17 10:30 07/01/17 10:29 06/03/17 09:45 Aspirin (ASA) 81 mg DAILY ORAL 06/01/17 09:00 07/01/17 08:59 06/03/17 09:44 Atorvastatin Calcium (Lipitor) 10 mg BEDTIME ORAL 05/31/17 21:00 06/30/17 20:59 06/02/17 20:59 Chlorhexidine Gluconate (Eloisa-Hex 2%) 1 applic DAILY@2000 TOPIC 05/31/17 20:00 06/30/17 19:59 06/02/17 20:58 Dextrose (Dextrose 50%) STAT PRN IV Hypoglycemia 05/31/17 11:15 06/30/17 11:14 Docusate Sodium (Colace) 100 mg THREE TIMES A DAY ORAL 05/31/17 18:00 06/30/17 17:59 06/03/17 09:43 Duloxetine HCl (Cymbalta) 30 mg DAILY ORAL 06/02/17 09:00 07/02/17 08:59 06/03/17 09:44 Epoetin Jose (Procrit (for non ESRD use)) 10,000 units MON-WED-WED SUBQ 06/02/17 21:00 07/02/17 20:59 06/02/17 21:01 Heparin Sodium (Porcine) (Heparin 5000 units/ml) 5,000 units EVERY 12 HOURS SUBQ 05/31/17 21:00 06/30/17 20:59 06/03/17 09:47 Hydralazine HCl (Apresoline) 25 mg Q4H PRN ORAL bp of 160 syst and above 05/31/17 14:45 06/30/17 14:44 06/02/17 12:08 Hydralazine HCl (Apresoline) 25 mg Q8HR ORAL 06/02/17 14:00 07/02/17 13:59 06/03/17 06:16 Insulin Aspart (NovoLOG) BEFORE MEALS AND HS SUBQ 05/31/17 11:30 06/30/17 11:29 06/03/17 12:07 Insulin Aspart (NovoLOG) 6 units NOVOTIAC SUBQ 06/02/17 18:00 07/02/17 17:59 06/03/17 12:08 Insulin Detemir (Levemir) 10 units BID@0900,2100 SUBQ 06/03/17 09:00 07/03/17 08:59 06/03/17 10:08 Lansoprazole (Prevacid) 30 mg DAILY ORAL 05/31/17 15:00 06/30/17 14:59 06/03/17 09:45 Metoprolol Tartrate (Lopressor) 50 mg Q12HR ORAL 05/31/17 12:00 06/30/17 11:59 06/03/17 09:50 Morphine Sulfate (Morphine Sulfate) 1 mg Q4H PRN IVP For Pain 05/31/17 11:15 06/07/17 11:14 06/01/17 04:20 Ondansetron HCl (Zofran) 4 mg Q6H PRN IVP Nausea & Vomiting 05/31/17 11:15 06/30/17 11:14 Polyethylene Glycol (Miralax) 17 gm HSPRN PRN ORAL Constipation 05/31/17 11:15 06/30/17 11:14 Sodium Chloride 1,000 ml @ 75 mls/hr [id number] IV 06/01/17 11:45 07/01/17 11:44 06/02/17 21:58 Tamsulosin HCl (Flomax) 0.4 mg BID ORAL 05/31/17 18:00 06/30/17 17:59 06/03/17 09:44 Zolpidem Tartrate (Ambien) 5 mg HSPRN PRN ORAL Insomnia 05/31/17 11:15 06/07/17 11:14 Allergies: Coded Allergies: CEFEPIME (Verified Allergy, Intermediate, Rash, 01/23/13) Subjective 62 YO M admitted with hematuria. Cover for Int Med - Dr Rosado. Await Urology consult. Hypoglycemic this morning Objective Last Vital Signs Date Time Temp Pulse Resp B/P (MAP) Pulse Ox O2 Delivery O2 Flow Rate FiO2 06/03/17 12:00 98.2 74 20 148/74 98 06/03/17 08:14 Room Air Laboratory Tests Test 06/03/17 05:00 White Blood Count 8.0 K/UL (4.8-10.8) Red Blood Count 2.51 M/UL (4.70-6.10) L Hemoglobin 8.6 G/DL (14.2-18.0) L Hematocrit 25.6 % (42.0-52.0) L Mean Corpuscular Volume 102 FL (80-99) H Mean Corpuscular Hemoglobin 34.2 PG (27.0-31.0) H Mean Corpuscular Hemoglobin Concent 33.6 G/DL (32.0-36.0) Red Cell Distribution Width 13.9 % (11.6-14.8) Platelet Count 211 K/UL (150-450) Mean Platelet Volume 6.2 FL (6.5-10.1) L Neutrophils (%) (Auto) 66.8 % (45.0-75.0) Lymphocytes (%) (Auto) 19.4 % (20.0-45.0) L Monocytes (%) (Auto) 9.1 % (1.0-10.0) Eosinophils (%) (Auto) 4.0 % (0.0-3.0) H Basophils (%) (Auto) 0.8 % (0.0-2.0) Sodium Level 139 MMOL/L (136-145) Potassium Level 4.0 MMOL/L (3.5-5.1) Chloride Level 107 MMOL/L (98-107) Carbon Dioxide Level 20 MMOL/L (21-32) L Anion Gap 12 mmol/L (5-15) Blood Urea Nitrogen 73 mg/dL (7-18) H Creatinine 5.0 MG/DL (0.55-1.30) H Estimat Glomerular Filtration Rate 11.8 mL/min (>60) Glucose Level 32 MG/DL (74-106) #*L Calcium Level 8.3 MG/DL (8.5-10.1) L Phosphorus Level 4.9 MG/DL (2.5-4.9) Magnesium Level 1.7 MG/DL (1.8-2.4) L Total Bilirubin 0.6 MG/DL (0.2-1.0) Aspartate Amino Transf (AST/SGOT) 14 U/L (15-37) L Alanine Aminotransferase (ALT/SGPT) 17 U/L (12-78) Alkaline Phosphatase 82 U/L (46-116) Total Protein 6.2 G/DL (6.4-8.2) L Albumin 2.6 G/DL (3.4-5.0) L Globulin 3.6 g/dL Albumin/Globulin Ratio 0.7 (1.0-2.7) L Hepatitis B Surface Antigen Pending Hepatitis B Surface Antibody, Quant Pending Hepatitis C Antibody Pending Intake and Output 06/03/17 06/04/17 19:00 07:00 Intake Total 540 ml Balance 540 ml Intake Oral 240 ml IV Total 300 ml # Voids 2 Objective General Appearance: WD/WN, no apparent distress, alert EENT: PERRL/EOMI, normal ENT inspection, TMs normal Neck: non-tender, normal alignment, supple, normal inspection Cardiovascular: normal peripheral pulses, normal rate, regular rhythm, no gallop/murmur, no JVD Respiratory/Chest: chest wall non-tender, lungs clear, normal breath sounds, no respiratory distress, no accessory muscle use Abdomen: normal bowel sounds, non tender, soft, no organomegaly, no mass 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 (5) CAD (coronary artery disease) (6) Acute on chronic renal failure Assessment & Plan: See nephrology note. Await renal ultrasound. (7) Anemia in chronic kidney disease (8) DM (diabetes mellitus) Assessment & Plan: Hypoglycemic this am. Continue novolog sliding scale. See endocrinology note. (9) History of simultaneous kidney and pancreas transplant (10) BPH (benign prostatic hyperplasia) Assessment & Plan: continue flomax (11) Gastritis Assessment & Plan: Continue prevacid (12) Hypercholesteremia Assessment & Plan: Continue lipitor (13) Hematuria Assessment & Plan: Await urology consult-R/O bladder cancer. Status: not improved DEE MAHER Jun 03, 2017 12:42
[2017-06-03 16:08] VITALS: BP 131/56
[2017-06-03] MEDS ORDERED: NS 275ml ONE (16:30)
[2017-06-03] MEDS ORDERED: 1/2 NS 1000ml IV ONE (16:30)
[2017-06-03 20:00] VITALS: BP 133/63
[2017-06-03] MEDS: Dyna-Hex 2% Top Sol 2oz TOPIC SCH (21:53)
[2017-06-04] VITALS (7 sets, daily range): BP systolic 130–154; BP diastolic 69–88
[2017-06-04] MEDS: HydrALAZINE 25mg tab ORAL SCH ×3 (05:48→22:10)
[2017-06-04] MEDS: NovoLOG Insulin Flexpen SUBQ SCH ×7 (05:48→22:02)
--- NOTE | 2017-06-04 06:30 | General Progress Note ---
Assessment/Plan Problem List: (1) hematuria (2) CKD (chronic kidney disease), stage III ICD Codes: N18.3 - CKD (chronic kidney disease), stage III SNOMED: 963474878 (3) Anemia in chronic kidney disease ICD Codes: D63.1 - Anemia in chronic kidney disease; N03.9 - Anemia in chronic kidney disease SNOMED: 180591290 (4) Hypoparathyroidism ICD Codes: E20.9 - Hypoparathyroidism, unspecified SNOMED: 52997924 (5) DM (diabetes mellitus) ICD Codes: E11.9 - DM (diabetes mellitus) SNOMED: 00443185 Assessment/Plan continue Levemir 10 units bid continue Novolog 6 units ac tid + SSI Subjective Allergies: Coded Allergies: CEFEPIME (Verified Allergy, Intermediate, Rash, 01/23/13) All Systems: reviewed and negative except above Subjective events noted Objective Last 24 Hour Vital Signs Date Time Temp Pulse Resp B/P (MAP) Pulse Ox O2 Delivery O2 Flow Rate FiO2 06/04/17 05:48 145/82 06/04/17 04:00 97.6 80 18 145/82 99 Room Air 06/04/17 00:02 97.5 69 20 130/69 97 Room Air 06/03/17 21:54 133/63 06/03/17 21:54 69 133/63 06/03/17 20:00 97.2 69 20 133/63 98 Room Air 06/03/17 19:46 66 16 Room Air 21 06/03/17 18:10 69 126/69 06/03/17 16:08 97.0 66 21 131/56 99 Room Air 06/03/17 14:09 126/64 06/03/17 12:00 98.2 74 20 148/74 98 06/03/17 09:50 82 154/70 06/03/17 09:45 82 154/70 06/03/17 08:14 75 18 Room Air 06/03/17 08:03 97.2 71 21 123/59 99 Room Air Laboratory Tests 06/03/17 19:25: Urine Eosinophils Moderate seen Height (Feet): 5 Height (Inches): 10.00 Weight (Pounds): 200 General Appearance: no apparent distress Neck: normal alignment Cardiovascular: normal rate Respiratory/Chest: lungs clear Abdomen: non tender Pelvis: normal external exam Lymphatic: fluctuant supraclavicular (R) Objective Current Medications Medications (Trade) Dose Ordered Sig/Dunia Route PRN Reason Start Time Stop Time Status Last Admin Dose Admin Acetaminophen (Tylenol) 650 mg Q4H PRN ORAL fever 05/31/17 11:15 06/30/17 11:14 Albuterol/ Ipratropium (Albuterol/ Ipratropium) 3 ml Q6H PRN HHN dyspnea 05/31/17 11:15 06/05/17 11:14 Amlodipine Besylate (Norvasc) 5 mg BID ORAL 06/01/17 10:30 07/01/17 10:29 06/03/17 18:10 Aspirin (ASA) 81 mg DAILY ORAL 06/01/17 09:00 07/01/17 08:59 06/03/17 09:44 Atorvastatin Calcium (Lipitor) 10 mg BEDTIME ORAL 05/31/17 21:00 06/30/17 20:59 06/03/17 21:53 Chlorhexidine Gluconate (Eloisa-Hex 2%) 1 applic DAILY@1999 TOPIC 05/31/17 20:00 06/30/17 19:59 06/03/17 21:53 Dextrose (Dextrose 50%) STAT PRN IV Hypoglycemia 05/31/17 11:15 06/30/17 11:14 Docusate Sodium (Colace) 100 mg THREE TIMES A DAY ORAL 05/31/17 18:00 06/30/17 17:59 06/03/17 18:10 Duloxetine HCl (Cymbalta) 30 mg DAILY ORAL 06/02/17 09:00 07/02/17 08:59 06/03/17 09:44 Epoetin Jose (Procrit (for non ESRD use)) 10,000 units MON-WED-FRI SUBQ 06/02/17 21:00 07/02/17 20:59 06/02/17 21:01 Heparin Sodium (Porcine) (Heparin 5000 units/ml) 5,000 units EVERY 12 HOURS SUBQ 05/31/17 21:00 06/30/17 20:59 06/03/17 21:55 Hydralazine HCl (Apresoline) 25 mg Q4H PRN ORAL bp of 160 syst and above 05/31/17 14:45 06/30/17 14:44 06/02/17 12:08 Hydralazine HCl (Apresoline) 25 mg Q8HR ORAL 06/02/17 14:00 07/02/17 13:59 06/04/17 05:48 Insulin Aspart (NovoLOG) BEFORE MEALS AND HS SUBQ 05/31/17 11:30 06/30/17 11:29 06/03/17 21:58 Insulin Aspart (NovoLOG) 6 units NOVOTIAC SUBQ 06/02/17 18:00 07/02/17 17:59 06/04/17 05:51 Insulin Detemir (Levemir) 10 units BID@0900,2100 SUBQ 06/03/17 09:00 07/03/17 08:59 06/03/17 21:57 Lansoprazole (Prevacid) 30 mg DAILY ORAL 05/31/17 15:00 06/30/17 14:59 06/03/17 09:45 Metoprolol Tartrate (Lopressor) 50 mg Q12HR ORAL 05/31/17 12:00 06/30/17 11:59 06/03/17 21:54 Morphine Sulfate (Morphine Sulfate) 1 mg Q4H PRN IVP For Pain 05/31/17 11:15 06/07/17 11:14 06/01/17 04:20 Ondansetron HCl (Zofran) 4 mg Q6H PRN IVP Nausea & Vomiting 05/31/17 11:15 06/30/17 11:14 Polyethylene Glycol (Miralax) 17 gm HSPRN PRN ORAL Constipation 05/31/17 11:15 06/30/17 11:14 Sodium Chloride 1,000 ml @ 75 mls/hr [id number] IV 06/01/17 11:45 07/01/17 11:44 06/04/17 05:48 Tamsulosin HCl (Flomax) 0.4 mg BID ORAL 05/31/17 18:00 06/30/17 17:59 06/03/17 18:10 Zolpidem Tartrate (Ambien) 5 mg HSPRN PRN ORAL Insomnia 05/31/17 11:15 06/07/17 11:14 Item Value Date Time Bedside Blood Glucose 95 mg/dl 06/04/17 0551 Bedside Blood Glucose 327 mg/dl H 06/03/17 2158 Bedside Blood Glucose 207 mg/dl H 06/03/17 1709 Bedside Blood Glucose 406 mg/dl H 06/03/17 1208 MALKA SHERIFF Jun 04, 2017 06:30
[2017-06-04 07:13] LABS: BASOPHILS % (AUTO) 0.7 % (0.0-2.0); EOSINOPHILS % (AUTO) 5.3 % (0.0-3.0); LYMPHOCYTES % (AUTO) 23.6 % (20.0-45.0); MEAN CORPUSCULAR HEMOGLOBIN 34.1 PG (27.0-31.0); MEAN CORPUSCULAR HGB CONC 34.1 G/DL (32.0-36.0); MEAN CORPUSCULAR VOLUME 100 FL (80-99); MEAN PLATELET VOLUME 6.9 FL (6.5-10.1); MONOCYTES % (AUTO) 7.9 % (1.0-10.0); NEUTROPHILS % (AUTO) 62.5 % (45.0-75.0); PLATELET COUNT 214 K/UL (150-450); RED BLOOD COUNT 2.39 M/UL (4.70-6.10); RED CELL DISTRIBUTION WIDTH 13.9 % (11.6-14.8); WHITE BLOOD COUNT 6.4 K/UL (4.8-10.8)
[2017-06-04 07:24] LABS: ALANINE AMINOTRANSFERASE 13 U/L (12-78); ALBUMIN/GLOBULIN RATIO 0.7 (1.0-2.7); ANION GAP 12 mmol/L (5-15); ASPARTATE AMINO TRANSFERASE 14 U/L (15-37); CALCIUM 8.5 MG/DL (8.5-10.1); CARBON DIOXIDE 20 MMOL/L (21-32); CHLORIDE 109 MMOL/L (98-107); CREATININE 4.7 MG/DL (0.55-1.30); GLOMERULAR FILTRATION RATE 12.7 mL/min (>60); MAGNESIUM 1.7 MG/DL (1.8-2.4); SODIUM 141 MMOL/L (136-145)
[2017-06-04] MEDS: Aspirin Baby 81mg ORAL SCH (08:09)
[2017-06-04] MEDS: Docusate 100mg cap ORAL SCH ×3 (08:09→18:47)
[2017-06-04] MEDS: Tamsulosin 0.4mg cap ORAL SCH ×2 (08:10→18:47)
[2017-06-04] MEDS: Metoprolol Tartrate 50mg tab ORAL SCH ×2 (08:10→20:58)
[2017-06-04] MEDS: DULoxetine 30mg cap ORAL SCH (08:10)
[2017-06-04] MEDS: Heparin 5000 units/ml inj SUBQ SCH ×2 (08:14→21:00)
[2017-06-04] MEDS: Levemir Flexpen SUBQ SCH ×2 (08:16→22:01)
--- NOTE | 2017-06-04 09:06 | Nephrology Progress Note ---
Assessment/Plan Problem List: (1) Anemia in chronic kidney disease (2) HTN (hypertension) (3) CKD (chronic kidney disease), stage III (4) DM (diabetes mellitus) Assessment (1) CKD (chronic kidney disease), stage III, superimposed acute- Cr 3.1 a year ago now 4.7 (2) Dehydration- Partly (3) Hyperglycemia due to type 2 diabetes mellitus (4) BPH (benign prostatic hypertrophy) (5) Nephropathy, diabetic (6) History of simultaneous kidney and pancreas transplant (7) UTI (urinary tract infection) (8) Anemia of CKD Plan Plan: bedside bladder scan Slow Hydrate- BP and BS control- Flomax PO- monitor renal parameters Anemia [place] 2D Echo: Left ventricular ejection fraction estimated to be 55 %. No evidence of left ventricular hypertrophy. per orders Kidney JOHNNY- Impression: Markedly distended bladder with large post void residual Left iliac fossa transplant kidney with moderate hydronephrosis. Suspect hydronephrosis is secondary to the above bladder abnormality, although other etiologies are not excludable. Mildly elevated transplant kidney resistive indices. This is nonspecific, can be seen in uropathy, but can also be seen in acute or chronic rejection, acute tubular necrosis, among other possibilities Subjective ROS Limited/Unobtainable: No Constitutional: Reports: malaise Objective Objective Last 24 Hour Vital Signs Date Time Temp Pulse Resp B/P (MAP) Pulse Ox O2 Delivery O2 Flow Rate FiO2 06/04/17 08:15 73 18 Room Air 06/04/17 08:11 69 151/88 06/04/17 08:10 69 151/88 06/04/17 05:48 145/82 06/04/17 04:00 97.6 80 18 145/82 99 Room Air 06/04/17 00:02 97.5 69 20 130/69 97 Room Air 06/03/17 21:54 133/63 06/03/17 21:54 69 133/63 06/03/17 20:00 97.2 69 20 133/63 98 Room Air 06/03/17 19:46 66 16 Room Air 21 06/03/17 18:10 69 126/69 06/03/17 16:08 97.0 66 21 131/56 99 Room Air 06/03/17 14:09 126/64 06/03/17 12:00 98.2 74 20 148/74 98 06/03/17 09:50 82 154/70 06/03/17 09:45 82 154/70 Laboratory Tests 06/03/17 19:25: Urine Eosinophils Moderate seen 06/04/17 05:15: White Blood Count 6.4, Red Blood Count 2.39L, Hemoglobin 8.2L, Hematocrit 23.9L , Mean Corpuscular Volume 100H, Mean Corpuscular Hemoglobin 34.1H, Mean Corpuscular Hemoglobin Concent 34.1, Red Cell Distribution Width 13.9, Platelet Count 214, Mean Platelet Volume 6.9, Neutrophils (%) (Auto) 62.5, Lymphocytes (% ) (Auto) 23.6, Monocytes (%) (Auto) 7.9, Eosinophils (%) (Auto) 5.3H, Basophils (%) (Auto) 0.7, Sodium Level 141, Potassium Level 4.0, Chloride Level 109H, Carbon Dioxide Level 20L, Anion Gap 12, Blood Urea Nitrogen 80H, Creatinine 4.7H , Estimat Glomerular Filtration Rate 12.7, Glucose Level 105, Calcium Level 8.5 , Phosphorus Level 5.0H, Magnesium Level 1.7L, Total Bilirubin 0.4, Aspartate Amino Transf (AST/SGOT) 14L, Alanine Aminotransferase (ALT/SGPT) 13, Alkaline Phosphatase 77, Pro-B-Type Natriuretic Peptide 1068H, Total Protein 6.0L, Albumin 2.5L, Globulin 3.5, Albumin/Globulin Ratio 0.7L Height (Feet): 5 Height (Inches): 10.00 Weight (Pounds): 200 General Appearance: no apparent distress Cardiovascular: normal rate Respiratory/Chest: decreased breath sounds Abdomen: distended Objective no change BERT ALONSO Jun 04, 2017 09:06
--- NOTE | 2017-06-04 11:48 | Pulmonology Progress Note ---
Assessment/Plan Problems: (1) Hematuria (2) Pulmonary HTN (3) Anemia in chronic kidney disease (4) CAD (coronary artery disease) (5) HTN (hypertension) (6) DM (diabetes mellitus) Assessment/Plan BS better now US of renal reviewed adjust insulin no new complains H/H stable IV fluids check electrolytes monitor BP sliding scale. Subjective ROS Limited/Unobtainable: Yes Allergies: Coded Allergies: CEFEPIME (Verified Allergy, Intermediate, Rash, 01/23/13) Objective Last 24 Hour Vital Signs Date Time Temp Pulse Resp B/P (MAP) Pulse Ox O2 Delivery O2 Flow Rate FiO2 06/04/17 08:15 73 18 Room Air 21 06/04/17 08:11 69 151/88 06/04/17 08:10 69 151/88 06/04/17 08:00 97.0 69 18 151/88 100 Room Air 06/04/17 05:48 145/82 06/04/17 04:00 97.6 80 18 145/82 99 Room Air 06/04/17 00:02 97.5 69 20 130/69 97 Room Air 06/03/17 21:54 133/63 06/03/17 21:54 69 133/63 06/03/17 20:00 97.2 69 20 133/63 98 Room Air 06/03/17 19:46 66 16 Room Air 21 06/03/17 18:10 69 126/69 06/03/17 16:08 97.0 66 21 131/56 99 Room Air 06/03/17 14:09 126/64 06/03/17 12:00 98.2 74 20 148/74 98 Objective General Appearance: WD/WN HEENT: normocephalic, anicteric Cardiovascular: normal peripheral pulses, normal rate Abdomen: normal bowel sounds, no organomegaly Genitourinary: normal external genitalia Extremities: no clubbing Skin: no lesions Lymphatic: no neck adenopathy Laboratory Tests 06/03/17 19:25: Urine Eosinophils Moderate seen 06/04/17 05:15: White Blood Count 6.4, Red Blood Count 2.39L, Hemoglobin 8.2L, Hematocrit 23.9L , Mean Corpuscular Volume 100H, Mean Corpuscular Hemoglobin 34.1H, Mean Corpuscular Hemoglobin Concent 34.1, Red Cell Distribution Width 13.9, Platelet Count 214, Mean Platelet Volume 6.9, Neutrophils (%) (Auto) 62.5, Lymphocytes (% ) (Auto) 23.6, Monocytes (%) (Auto) 7.9, Eosinophils (%) (Auto) 5.3H, Basophils (%) (Auto) 0.7, Sodium Level 141, Potassium Level 4.0, Chloride Level 109H, Carbon Dioxide Level 20L, Anion Gap 12, Blood Urea Nitrogen 80H, Creatinine 4.7H , Estimat Glomerular Filtration Rate 12.7, Glucose Level 105, Calcium Level 8.5 , Phosphorus Level 5.0H, Magnesium Level 1.7L, Total Bilirubin 0.4, Aspartate Amino Transf (AST/SGOT) 14L, Alanine Aminotransferase (ALT/SGPT) 13, Alkaline Phosphatase 77, Pro-B-Type Natriuretic Peptide 1068H, Total Protein 6.0L, Albumin 2.5L, Globulin 3.5, Albumin/Globulin Ratio 0.7L Current Medications Medications (Trade) Dose Ordered Sig/Dunia Route PRN Reason Start Time Stop Time Status Last Admin Dose Admin Acetaminophen (Tylenol) 650 mg Q4H PRN ORAL fever 05/31/17 11:15 06/30/17 11:14 Albuterol/ Ipratropium (Albuterol/ Ipratropium) 3 ml Q6H PRN HHN dyspnea 05/31/17 11:15 06/05/17 11:14 Amlodipine Besylate (Norvasc) 5 mg BID ORAL 06/01/17 10:30 07/01/17 10:29 06/04/17 08:11 Aspirin (ASA) 81 mg DAILY ORAL 06/01/17 09:00 07/01/17 08:59 06/04/17 08:09 Atorvastatin Calcium (Lipitor) 10 mg BEDTIME ORAL 05/31/17 21:00 06/30/17 20:59 06/03/17 21:53 Chlorhexidine Gluconate (Eloisa-Hex 2%) 1 applic DAILY@1999 TOPIC 05/31/17 20:00 06/30/17 19:59 06/03/17 21:53 Dextrose (Dextrose 50%) STAT PRN IV Hypoglycemia 05/31/17 11:15 06/30/17 11:14 Docusate Sodium (Colace) 100 mg THREE TIMES A DAY ORAL 05/31/17 18:00 06/30/17 17:59 11/24/17 08:09 Duloxetine HCl (Cymbalta) 30 mg DAILY ORAL 06/02/17 09:00 07/02/17 08:59 06/04/17 08:10 Epoetin Jose (Procrit (for non ESRD use)) 10,000 units MON-WED-WED SUBQ 06/02/17 21:00 07/02/17 20:59 06/02/17 21:01 Finasteride (Proscar) 5 mg DAILY ORAL 06/04/17 10:00 07/04/17 09:59 06/04/17 10:37 Heparin Sodium (Porcine) (Heparin 5000 units/ml) 5,000 units EVERY 12 HOURS SUBQ 05/31/17 21:00 06/30/17 20:59 06/04/17 08:14 Hydralazine HCl (Apresoline) 25 mg Q4H PRN ORAL bp of 160 syst and above 05/31/17 14:45 06/30/17 14:44 06/02/17 12:08 Hydralazine HCl (Apresoline) 50 mg Q8HR ORAL 06/04/17 14:00 07/04/17 13:59 Insulin Aspart (NovoLOG) BEFORE MEALS AND HS SUBQ 05/31/17 11:30 06/30/17 11:29 06/03/17 21:58 Insulin Aspart (NovoLOG) 6 units NOVOTIAC SUBQ 06/02/17 18:00 07/02/17 17:59 06/04/17 05:51 Insulin Detemir (Levemir) 10 units BID@0900,2100 SUBQ 06/03/17 09:00 07/03/17 08:59 06/04/17 08:16 Lansoprazole (Prevacid) 30 mg DAILY ORAL 05/31/17 15:00 06/30/17 14:59 06/04/17 08:11 Metoprolol Tartrate (Lopressor) 50 mg Q12HR ORAL 05/31/17 12:00 06/30/17 11:59 06/04/17 08:10 Morphine Sulfate (Morphine Sulfate) 1 mg Q4H PRN IVP For Pain 05/31/17 11:15 06/07/17 11:14 06/01/17 04:20 Ondansetron HCl (Zofran) 4 mg Q6H PRN IVP Nausea & Vomiting 05/31/17 11:15 06/30/17 11:14 Polyethylene Glycol (Miralax) 17 gm HSPRN PRN ORAL Constipation 05/31/17 11:15 06/30/17 11:14 Sodium Chloride 1,000 ml @ 75 mls/hr [id number] IV 06/01/17 11:45 07/01/17 11:44 06/04/17 05:48 Tamsulosin HCl (Flomax) 0.4 mg BID ORAL 05/31/17 18:00 06/30/17 17:59 06/04/17 08:10 Zolpidem Tartrate (Ambien) 5 mg HSPRN PRN ORAL Insomnia 05/31/17 11:15 06/07/17 11:14 MARGO GALLEGOS Jun 04, 2017 11:48
--- NOTE | 2017-06-04 14:12 | Internal Med Progress Note ---
Subjective Date of Service: Jun 04, 2017 Physician Name Dee Maher Attending Physician Christopher Rosado MD Current Medications Medications (Trade) Dose Ordered Sig/Dunia Route PRN Reason Start Time Stop Time Status Last Admin Dose Admin Acetaminophen (Tylenol) 650 mg Q4H PRN ORAL fever 05/31/17 11:15 06/30/17 11:14 Albuterol/ Ipratropium (Albuterol/ Ipratropium) 3 ml Q6H PRN HHN dyspnea 05/31/17 11:15 06/05/17 11:14 Amlodipine Besylate (Norvasc) 5 mg BID ORAL 06/01/17 10:30 07/01/17 10:29 06/04/17 08:11 Aspirin (ASA) 81 mg DAILY ORAL 06/01/17 09:00 07/01/17 08:59 06/04/17 08:09 Atorvastatin Calcium (Lipitor) 10 mg BEDTIME ORAL 05/31/17 21:00 06/30/17 20:59 06/03/17 21:53 Chlorhexidine Gluconate (Eloisa-Hex 2%) 1 applic DAILY@2000 TOPIC 05/31/17 20:00 06/30/17 19:59 06/03/17 21:53 Dextrose (Dextrose 50%) STAT PRN IV Hypoglycemia 05/31/17 11:15 06/30/17 11:14 Docusate Sodium (Colace) 100 mg THREE TIMES A DAY ORAL 05/31/17 18:00 06/30/17 17:59 06/04/17 13:49 Duloxetine HCl (Cymbalta) 30 mg DAILY ORAL 06/02/17 09:00 07/02/17 08:59 06/04/17 08:10 Epoetin Jose (Procrit (for non ESRD use)) 10,000 units MON-WED-WED SUBQ 06/02/17 21:00 07/02/17 20:59 06/02/17 21:01 Finasteride (Proscar) 5 mg DAILY ORAL 06/04/17 10:00 07/04/17 09:59 06/04/17 10:37 Heparin Sodium (Porcine) (Heparin 5000 units/ml) 5,000 units EVERY 12 HOURS SUBQ 05/31/17 21:00 06/30/17 20:59 06/04/17 08:14 Hydralazine HCl (Apresoline) 25 mg Q4H PRN ORAL bp of 160 syst and above 05/31/17 14:45 06/30/17 14:44 06/02/17 12:08 Hydralazine HCl (Apresoline) 50 mg Q8HR ORAL 06/04/17 14:00 07/04/17 13:59 06/04/17 13:50 Insulin Aspart (NovoLOG) BEFORE MEALS AND HS SUBQ 05/31/17 11:30 06/30/17 11:29 06/04/17 12:22 Insulin Aspart (NovoLOG) 6 units NOVOTIAC SUBQ 06/02/17 18:00 07/02/17 17:59 06/04/17 12:19 Insulin Detemir (Levemir) 10 units BID@0900,2100 SUBQ 06/03/17 09:00 07/03/17 08:59 06/04/17 08:16 Lansoprazole (Prevacid) 30 mg DAILY ORAL 05/31/17 15:00 06/30/17 14:59 06/04/17 08:11 Metoprolol Tartrate (Lopressor) 50 mg Q12HR ORAL 05/31/17 12:00 06/30/17 11:59 06/04/17 08:10 Morphine Sulfate (Morphine Sulfate) 1 mg Q4H PRN IVP For Pain 05/31/17 11:15 06/07/17 11:14 06/01/17 04:20 Ondansetron HCl (Zofran) 4 mg Q6H PRN IVP Nausea & Vomiting 05/31/17 11:15 06/30/17 11:14 Polyethylene Glycol (Miralax) 17 gm HSPRN PRN ORAL Constipation 05/31/17 11:15 06/30/17 11:14 Sodium Chloride 1,000 ml @ 75 mls/hr [id number] IV 06/01/17 11:45 07/01/17 11:44 06/04/17 05:48 Tamsulosin HCl (Flomax) 0.4 mg BID ORAL 05/31/17 18:00 06/30/17 17:59 06/04/17 08:10 Zolpidem Tartrate (Ambien) 5 mg HSPRN PRN ORAL Insomnia 05/31/17 11:15 06/07/17 11:14 Allergies: Coded Allergies: CEFEPIME (Verified Allergy, Intermediate, Rash, 01/23/13) Subjective 62 YO M admitted with hematuria. Cover for Int Med - Dr Rosado. Await discharge to [facility]. Objective Last Vital Signs Date Time Temp Pulse Resp B/P (MAP) Pulse Ox O2 Delivery O2 Flow Rate FiO2 06/04/17 13:50 141/72 06/04/17 12:00 98.0 71 18 98 Room Air 06/04/17 08:15 21 Laboratory Tests Test 06/03/17 19:25 06/04/17 05:15 Urine Eosinophils Moderate seen White Blood Count 6.4 K/UL (4.8-10.8) Red Blood Count 2.39 M/UL (4.70-6.10) L Hemoglobin 8.2 G/DL (14.2-18.0) L Hematocrit 23.9 % (42.0-52.0) L Mean Corpuscular Volume 100 FL (80-99) H Mean Corpuscular Hemoglobin 34.1 PG (27.0-31.0) H Mean Corpuscular Hemoglobin Concent 34.1 G/DL (32.0-36.0) Red Cell Distribution Width 13.9 % (11.6-14.8) Platelet Count 214 K/UL (150-450) Mean Platelet Volume 6.9 FL (6.5-10.1) Neutrophils (%) (Auto) 62.5 % (45.0-75.0) Lymphocytes (%) (Auto) 23.6 % (20.0-45.0) Monocytes (%) (Auto) 7.9 % (1.0-10.0) Eosinophils (%) (Auto) 5.3 % (0.0-3.0) H Basophils (%) (Auto) 0.7 % (0.0-2.0) Sodium Level 141 MMOL/L (136-145) Potassium Level 4.0 MMOL/L (3.5-5.1) Chloride Level 109 MMOL/L (98-107) H Carbon Dioxide Level 20 MMOL/L (21-32) L Anion Gap 12 mmol/L (5-15) Blood Urea Nitrogen 80 mg/dL (7-18) H Creatinine 4.7 MG/DL (0.55-1.30) H Estimat Glomerular Filtration Rate 12.7 mL/min (>60) Glucose Level 105 MG/DL (74-106) Calcium Level 8.5 MG/DL (8.5-10.1) Phosphorus Level 5.0 MG/DL (2.5-4.9) H Magnesium Level 1.7 MG/DL (1.8-2.4) L Total Bilirubin 0.4 MG/DL (0.2-1.0) Aspartate Amino Transf (AST/SGOT) 14 U/L (15-37) L Alanine Aminotransferase (ALT/SGPT) 13 U/L (12-78) Alkaline Phosphatase 77 U/L (46-116) Pro-B-Type Natriuretic Peptide 1068 pg/mL (0-125) H Total Protein 6.0 G/DL (6.4-8.2) L Albumin 2.5 G/DL (3.4-5.0) L Globulin 3.5 g/dL Albumin/Globulin Ratio 0.7 (1.0-2.7) L Intake and Output 06/04/17 06/05/17 19:00 07:00 Intake Total 375 ml Balance 375 ml IV Total 375 ml Objective General Appearance: WD/WN, no apparent distress, alert EENT: PERRL/EOMI, normal ENT inspection, TMs normal Neck: non-tender, normal alignment, supple, normal inspection Cardiovascular: normal peripheral pulses, normal rate, regular rhythm, no gallop/murmur, no JVD Respiratory/Chest: chest wall non-tender, lungs clear, normal breath sounds, no respiratory distress, no accessory muscle use Abdomen: normal bowel sounds, non tender, soft, no organomegaly, no mass Neurologic: judge II-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 (5) CAD (coronary artery disease) (6) Acute on chronic renal failure Assessment & Plan: See nephrology note. Await renal ultrasound. (7) Anemia in chronic kidney disease (8) DM (diabetes mellitus) Assessment & Plan: Hypoglycemic this am. Continue novolog sliding scale. See endocrinology note. (9) History of simultaneous kidney and pancreas transplant (10) BPH (benign prostatic hyperplasia) Assessment & Plan: continue flomax (11) Gastritis Assessment & Plan: Continue prevacid (12) Hypercholesteremia Assessment & Plan: Continue lipitor (13) Hematuria Assessment & Plan: Resolved; urology consult as outpatient-R/O bladder cancer. DEE MAHER Jun 04, 2017 14:12
[2017-06-04] MEDS ORDERED: FINASTERIDE5 MG ORAL (14:17)
[2017-06-04] MEDS ORDERED: TAMSULOSIN HCL0.4 MG ORAL (14:17)
[2017-06-04] MEDS: Dyna-Hex 2% Top Sol 2oz TOPIC SCH (20:58)
[2017-06-04] MEDS: Epogen (for non ESRD use) SUBQ SCH (20:59)
[2017-06-05] VITALS: BP 166/90
[2017-06-05 04:00] VITALS: BP 149/87
[2017-06-05 05:34] LABS: MEAN CORPUSCULAR HEMOGLOBIN 32.7 PG (27.0-31.0); MEAN CORPUSCULAR HGB CONC 31.6 G/DL (32.0-36.0); MEAN CORPUSCULAR VOLUME 104 FL (80-99); MEAN PLATELET VOLUME 6.6 FL (6.5-10.1); PLATELET COUNT 195 K/UL (150-450); RED BLOOD COUNT 2.33 M/UL (4.70-6.10); RED CELL DISTRIBUTION WIDTH 14.1 % (11.6-14.8); WHITE BLOOD COUNT 6.9 K/UL (4.8-10.8)
[2017-06-05 05:53] LABS: ALANINE AMINOTRANSFERASE 13 U/L (12-78); ALBUMIN/GLOBULIN RATIO 0.7 (1.0-2.7); ANION GAP 13 mmol/L (5-15); ASPARTATE AMINO TRANSFERASE 15 U/L (15-37); CALCIUM 7.1 MG/DL (8.5-10.1); CARBON DIOXIDE 15 MMOL/L (21-32); CHLORIDE 104 MMOL/L (98-107); CREATININE 4.8 MG/DL (0.55-1.30); CRP QUANT 3.2 mg/dL (0.00-0.90); GLOMERULAR FILTRATION RATE 12.3 mL/min (>60); MAGNESIUM 1.5 MG/DL (1.8-2.4); PHOSPHORUS 3.9 MG/DL (2.5-4.9); POTASSIUM 4.4 MMOL/L (3.5-5.1); SODIUM 132 MMOL/L (136-145); TOTAL PROTEIN 5.3 G/DL (6.4-8.2)
[2017-06-05] MEDS: HydrALAZINE 25mg tab ORAL SCH ×3 (05:54→21:37)
[2017-06-05 05:58] LABS: BAND NEUTROPHILS % (MANUAL) 0 % (0-8); BASOPHILS % (MANUAL) 0 % (0-2); EOSINOPHILS % (MANUAL) 3 % (0-3); LYMPHOCYTES % (MANUAL) 10 % (20-45); NEUTROPHILS % (MANUAL) 80 % (45-75); PLATELET ESTIMATE ADEQUATE; PLATELET MORPHOLOGY NORMAL; TOTAL CELLS COUNTED 100
[2017-06-05] MEDS: NovoLOG Insulin Flexpen SUBQ SCH ×9 (06:29→21:12)
--- NOTE | 2017-06-05 06:48 | General Progress Note ---
Assessment/Plan Problem List: (1) hematuria (2) CKD (chronic kidney disease), stage III ICD Codes: N18.3 - CKD (chronic kidney disease), stage III SNOMED: 239089095 (3) Anemia in chronic kidney disease ICD Codes: D63.1 - Anemia in chronic kidney disease; N03.9 - Anemia in chronic kidney disease SNOMED: 546553608 (4) Hypoparathyroidism ICD Codes: E20.9 - Hypoparathyroidism, unspecified SNOMED: 24532686 (5) DM (diabetes mellitus) ICD Codes: E11.9 - DM (diabetes mellitus) SNOMED: 68266667 Assessment/Plan glucose is running very high increase Levemir 10 tp 12 units bid increase Novolog 6 to 8 units ac tid + SSI Subjective Allergies: Coded Allergies: CEFEPIME (Verified Allergy, Intermediate, Rash, 01/23/13) All Systems: reviewed and negative except above Subjective events noted Objective Last 24 Hour Vital Signs Date Time Temp Pulse Resp B/P (MAP) Pulse Ox O2 Delivery O2 Flow Rate FiO2 06/05/17 05:54 149/87 06/05/17 04:00 98.2 88 21 149/87 99 Room Air 06/05/17 00:00 98.7 97 21 166/90 98 Room Air 06/04/17 22:10 166/90 06/04/17 20:58 89 154/82 06/04/17 20:00 98.1 89 21 154/82 98 Room Air 06/04/17 18:55 103 18 Room Air 06/04/17 18:47 93 137/81 06/04/17 18:40 93 137/81 06/04/17 16:00 97.6 71 18 144/79 97 Room Air 06/04/17 13:50 141/72 06/04/17 12:00 98.0 71 18 148/82 98 Room Air 06/04/17 08:15 73 18 Room Air 06/04/17 08:11 69 151/88 06/04/17 08:10 69 151/88 06/04/17 08:00 97.0 69 18 151/88 100 Room Air Laboratory Tests 06/04/17 17:45: Glucose Level 639#*H 06/04/17 21:10: Glucose Level 689*H 11/25/17 05:15: Glucose Level 468#H, White Blood Count 6.9, Red Blood Count 2.33L, Hemoglobin 7.6L, Hematocrit 24.1L, Mean Corpuscular Volume 104H, Mean Corpuscular Hemoglobin 32.7H, Mean Corpuscular Hemoglobin Concent 31.6L, Red Cell Distribution Width 14.1, Platelet Count 195, Mean Platelet Volume 6.6, Neutrophils (%) (Auto) , Lymphocytes (%) (Auto) , Monocytes (%) (Auto) , Eosinophils (%) (Auto) , Basophils (%) (Auto) , Differential Total Cells Counted 100, Neutrophils % (Manual) 80H, Lymphocytes % (Manual) 10L, Monocytes % (Manual) 7, Eosinophils % (Manual) 3, Basophils % (Manual) 0, Band Neutrophils 0, Platelet Estimate Adequate, Platelet Morphology Normal, Sodium Level 132L, Potassium Level 4.4, Chloride Level 104, Carbon Dioxide Level 15L, Anion Gap 13, Blood Urea Nitrogen 77H, Creatinine 4.8H, Estimat Glomerular Filtration Rate 12.3, Calcium Level 7.1L, Phosphorus Level 3.9, Magnesium Level 1.5L, Total Bilirubin 0.4, Aspartate Amino Transf (AST/SGOT) 15, Alanine Aminotransferase (ALT/SGPT) 13, Alkaline Phosphatase 79, C-Reactive Protein, Quantitative 3.2H, Total Protein 5.3L, Albumin 2.2L, Globulin 3.1, Albumin/ Globulin Ratio 0.7L Height (Feet): 5 Height (Inches): 10.00 Weight (Pounds): 200 General Appearance: no apparent distress Neck: normal alignment Cardiovascular: normal rate Respiratory/Chest: lungs clear Abdomen: normal bowel sounds Pelvis: normal external exam Objective Current Medications Medications (Trade) Dose Ordered Sig/Dunia Route PRN Reason Start Time Stop Time Status Last Admin Dose Admin Acetaminophen (Tylenol) 650 mg Q4H PRN ORAL fever 05/31/17 11:15 06/30/17 11:14 Albuterol/ Ipratropium (Albuterol/ Ipratropium) 3 ml Q6H PRN HHN dyspnea 05/31/17 11:15 06/05/17 11:14 Amlodipine Besylate (Norvasc) 5 mg BID ORAL 06/01/17 10:30 07/01/17 10:29 06/04/17 18:47 Aspirin (ASA) 81 mg DAILY ORAL 06/01/17 09:00 07/01/17 08:59 06/04/17 08:09 Atorvastatin Calcium (Lipitor) 10 mg BEDTIME ORAL 05/31/17 21:00 06/30/17 20:59 06/04/17 20:58 Chlorhexidine Gluconate (Eloisa-Hex 2%) 1 applic DAILY@2000 TOPIC 05/31/17 20:00 06/30/17 19:59 06/04/17 20:58 Dextrose (Dextrose 50%) STAT PRN IV Hypoglycemia 05/31/17 11:15 06/30/17 11:14 Docusate Sodium (Colace) 100 mg THREE TIMES A DAY ORAL 05/31/17 18:00 06/30/17 17:59 06/04/17 18:47 Duloxetine HCl (Cymbalta) 30 mg DAILY ORAL 06/02/17 09:00 07/02/17 08:59 06/04/17 08:10 Epoetin Jose (Procrit (for non ESRD use)) 10,000 units WED-WED-WED SUBQ 06/02/17 21:00 07/02/17 20:59 06/04/17 20:59 Finasteride (Proscar) 5 mg DAILY ORAL 06/04/17 10:00 07/04/17 09:59 06/04/17 10:37 Heparin Sodium (Porcine) (Heparin 5000 units/ml) 5,000 units EVERY 12 HOURS SUBQ 05/31/17 21:00 06/30/17 20:59 06/04/17 21:00 Hydralazine HCl (Apresoline) 25 mg Q4H PRN ORAL bp of 160 syst and above 05/31/17 14:45 06/30/17 14:44 06/02/17 12:08 Hydralazine HCl (Apresoline) 50 mg Q8HR ORAL 06/04/17 14:00 07/04/17 13:59 06/05/17 05:54 Insulin Aspart (NovoLOG) BEFORE MEALS AND HS SUBQ 05/31/17 11:30 06/30/17 11:29 06/05/17 06:29 Insulin Aspart (NovoLOG) 6 units NOVOTIAC SUBQ 06/02/17 18:00 07/02/17 17:59 06/05/17 06:30 Insulin Detemir (Levemir) 10 units BID@0900,2100 SUBQ 06/03/17 09:00 07/03/17 08:59 06/04/17 22:01 Lansoprazole (Prevacid) 30 mg DAILY ORAL 05/31/17 15:00 06/30/17 14:59 06/04/17 08:11 Metoprolol Tartrate (Lopressor) 50 mg Q12HR ORAL 05/31/17 12:00 06/30/17 11:59 06/04/17 20:58 Morphine Sulfate (Morphine Sulfate) 1 mg Q4H PRN IVP For Pain 05/31/17 11:15 06/07/17 11:14 06/01/17 04:20 Ondansetron HCl (Zofran) 4 mg Q6H PRN IVP Nausea & Vomiting 05/31/17 11:15 06/30/17 11:14 Polyethylene Glycol (Miralax) 17 gm HSPRN PRN ORAL Constipation 05/31/17 11:15 06/30/17 11:14 Sodium Chloride 1,000 ml @ 75 mls/hr [id number] IV 06/01/17 11:45 07/01/17 11:44 06/04/17 19:45 Tamsulosin HCl (Flomax) 0.4 mg BID ORAL 05/31/17 18:00 06/30/17 17:59 06/04/17 18:47 Zolpidem Tartrate (Ambien) 5 mg HSPRN PRN ORAL Insomnia 05/31/17 11:15 06/07/17 11:14 Item Value Date Time Bedside Blood Glucose 468 mg/dl H 06/05/17 0638 Bedside Blood Glucose 689 mg/dl H 06/04/172 Bedside Blood Glucose 336 mg/dl H 06/04/17 1222 MALKA SHERIFF Jun 05, 2017 06:48
[2017-06-05 08:00] VITALS: BP 159/78
[2017-06-05] MEDS: Heparin 5000 units/ml inj SUBQ SCH ×2 (09:00→21:12)
[2017-06-05] MEDS: Aspirin Baby 81mg ORAL SCH (09:00)
[2017-06-05] MEDS ORDERED: Lidocaine HCl 2% Jelly 5ml Tube TOPIC ONE (09:30)
[2017-06-05] MEDS ORDERED: HYDROmorphone 1mg/ml Carpuject IVP ONE (09:30)
[2017-06-05] MEDS: Docusate 100mg cap ORAL SCH ×3 (09:59→18:21)
[2017-06-05] MEDS: Metoprolol Tartrate 50mg tab ORAL SCH ×2 (09:59→21:08)
[2017-06-05] MEDS: DULoxetine 30mg cap ORAL SCH (09:59)
[2017-06-05] MEDS: Tamsulosin 0.4mg cap ORAL SCH ×2 (09:59→18:21)
[2017-06-05] MEDS: Levemir Flexpen SUBQ SCH ×2 (10:01→21:13)
--- NOTE | 2017-06-05 10:09 | Nephrology Progress Note ---
Assessment/Plan Problem List: (1) Anemia in chronic kidney disease (2) HTN (hypertension) (3) CKD (chronic kidney disease), stage III (4) DM (diabetes mellitus) Assessment Patient has urinary retention (1) CKD (chronic kidney disease), stage III, superimposed acute- Cr 3.1 a year ago now 4.8 (2) Dehydration- Partly (3) Hyperglycemia due to type 2 diabetes mellitus (4) BPH (benign prostatic hypertrophy) (5) Nephropathy, diabetic (6) History of simultaneous kidney and pancreas transplant (7) UTI (urinary tract infection) (8) Anemia of CKD Plan Plan: long discussion at presence of RN- Agreed with hernandez bedside bladder scanshows urinary retention Slow Hydrate- BP and BS control- Flomax PO- monitor renal parameters Anemia [place] 2D Echo: Left ventricular ejection fraction estimated to be 55 %. No evidence of left ventricular hypertrophy. per orders Kidney JOHNNY- Impression: Markedly distended bladder with large post void residual Left iliac fossa transplant kidney with moderate hydronephrosis. Suspect hydronephrosis is secondary to the above bladder abnormality, although other etiologies are not excludable. Mildly elevated transplant kidney resistive indices. This is nonspecific, can be seen in uropathy, but can also be seen in acute or chronic rejection, acute tubular necrosis, among other possibilities Subjective ROS Limited/Unobtainable: No Constitutional: Reports: malaise Objective Objective Last 24 Hour Vital Signs Date Time Temp Pulse Resp B/P (MAP) Pulse Ox O2 Delivery O2 Flow Rate FiO2 06/05/17 09:59 77 159/78 06/05/17 09:59 77 159/78 06/05/17 08:00 77 20 Room Air 06/05/17 08:00 99.3 77 18 159/78 99 Room Air 06/05/17 05:54 149/87 06/05/17 04:00 98.2 88 21 149/87 99 Room Air 06/05/17 00:00 98.7 97 21 166/90 98 Room Air 06/04/17 22:10 166/90 06/04/17 20:58 89 154/82 06/04/17 20:00 98.1 89 21 154/82 98 Room Air 06/04/17 18:55 103 18 Room Air 06/04/17 18:47 93 137/81 06/04/17 18:40 93 137/81 06/04/17 16:00 97.6 71 18 144/79 97 Room Air 06/04/17 13:50 141/72 06/04/17 12:00 98.0 71 18 148/82 98 Room Air Laboratory Tests 06/04/17 17:45: Glucose Level 639#*H 06/04/17 21:10: Glucose Level 689*H 06/05/17 05:15: Glucose Level 468#H, White Blood Count 6.9, Red Blood Count 2.33L, Hemoglobin 7.6L, Hematocrit 24.1L, Mean Corpuscular Volume 104H, Mean Corpuscular Hemoglobin 32.7H, Mean Corpuscular Hemoglobin Concent 31.6L, Red Cell Distribution Width 14.1, Platelet Count 195, Mean Platelet Volume 6.6, Neutrophils (%) (Auto) , Lymphocytes (%) (Auto) , Monocytes (%) (Auto) , Eosinophils (%) (Auto) , Basophils (%) (Auto) , Differential Total Cells Counted 100, Neutrophils % (Manual) 80H, Lymphocytes % (Manual) 10L, Monocytes % (Manual) 7, Eosinophils % (Manual) 3, Basophils % (Manual) 0, Band Neutrophils 0, Platelet Estimate Adequate, Platelet Morphology Normal, Sodium Level 132L, Potassium Level 4.4, Chloride Level 104, Carbon Dioxide Level 15L, Anion Gap 13, Blood Urea Nitrogen 77H, Creatinine 4.8H, Estimat Glomerular Filtration Rate 12.3, Calcium Level 7.1L, Phosphorus Level 3.9, Magnesium Level 1.5L, Total Bilirubin 0.4, Aspartate Amino Transf (AST/SGOT) 15, Alanine Aminotransferase (ALT/SGPT) 13, Alkaline Phosphatase 79, C-Reactive Protein, Quantitative 3.2H, Total Protein 5.3L, Albumin 2.2L, Globulin 3.1, Albumin/ Globulin Ratio 0.7L Height (Feet): 5 Height (Inches): 10.00 Weight (Pounds): 200 General Appearance: no apparent distress, lethargic Respiratory/Chest: decreased breath sounds Abdomen: soft, distended Objective no change BERT ALONSO Jun 05, 2017 10:09
--- NOTE | 2017-06-05 10:53 | Diagnostic Imaging Report ---
Indication: Cough Technique: XRAY CHEST 1 V Comparison: 04/09/17 Findings: Right PICC line is unchanged. The cardiomediastinal silhouette is stable. Mild linear opacities are noted of the left base. Osseous structures are grossly stable. Impression: Linear opacities of the left base could represent atelectasis. Clinical correlation/followup recommended.
[2017-06-05 12:01] VITALS: BP 155/78
[2017-06-05 12:56] LABS: APPEARANCE,URINE SLIGHTLY CLOUDY; KETONES,URINE NEGATIVE (NEGATIVE); LEUKOCYTE ESTERASE ,URINE 3+ (NEGATIVE); NITRITE,URINE NEGATIVE (NEGATIVE); PH,URINE 8 (4.5-8.0); PROTEIN,URINE 2+ (NEGATIVE); UROBILINOGEN,URINE NORMAL MG/DL (0.0-1.0)
[2017-06-05] MEDS ORDERED: Ertapenem 1gm in NS 55ml IVPB SCH (13:00)
[2017-06-05 13:17] LABS: BACTERIA,URINE OCCASIONAL /HPF; RBC,URINE TNTC /HPF (0 - 0); SQUAMOUS EPITHELIAL CELL,UR OCCASIONAL /LPF (NONE/OCC)
--- NOTE | 2017-06-05 14:14 | Infectious Diseases Prog Note ---
Assessment/Plan Problems: (1) Sepsis Assessment & Plan: source suspect , with urine retention, will send blood culture , continue ertapenem empirically (2) UTI (urinary tract infection) Assessment & Plan: due to retention, will send urine culture and continue ertapenem. (3) Hematuria Assessment & Plan: suspect due to enlarged prostate, S/P hernandez catheter placement , urology is following (4) History of simultaneous kidney and pancreas transplant Assessment & Plan: S/P rejection , may need HD since he is becoming uremic (5) DKA (diabetic ketoacidoses) Assessment & Plan: recommend tight glycemic control to keep premeals less than 130, and post prandial less than 180 (6) CKD (chronic kidney disease), stage III Assessment & Plan: continue hydration , monitor UOP, may require HD if continue to retain fluids , renal is following (7) urinary retention Assessment & Plan: S/P hernandez catheter Subjective Allergies: Coded Allergies: CEFEPIME (Verified Allergy, Intermediate, Rash, 01/23/13) Objective Vital Signs Last 24 Hour Vital Signs Date Time Temp Pulse Resp B/P (MAP) Pulse Ox O2 Delivery O2 Flow Rate FiO2 06/05/17 13:42 124/64 06/05/17 12:01 99.5 78 20 155/78 96 Room Air 06/05/17 09:59 77 159/78 06/05/17 09:59 77 159/78 06/05/17 08:00 77 20 Room Air 21 06/05/17 08:00 99.3 77 18 159/78 99 Room Air 06/05/17 05:54 149/87 06/05/17 04:00 98.2 88 21 149/87 99 Room Air 06/05/17 00:00 98.7 97 21 166/90 98 Room Air 06/04/17 22:10 166/90 06/04/17 20:58 89 154/82 06/04/17 20:00 98.1 89 21 154/82 98 Room Air 06/04/17 18:55 103 18 Room Air 06/04/17 18:47 93 137/81 06/04/17 18:40 93 137/81 06/04/17 16:00 97.6 71 18 144/79 97 Room Air Height (Feet): 5 Height (Inches): 10.00 Weight (Pounds): 200 Laboratory Tests Test 06/04/17 17:45 06/04/17 21:10 06/05/17 05:15 06/05/17 12:20 Glucose Level 639 MG/DL (74-106) #*H 689 MG/DL (74-106) *H 468 MG/DL (74-106) #H White Blood Count 6.9 K/UL (4.8-10.8) Red Blood Count 2.33 M/UL (4.70-6.10) L Hemoglobin 7.6 G/DL (14.2-18.0) L Hematocrit 24.1 % (42.0-52.0) L Mean Corpuscular Volume 104 FL (80-99) H Mean Corpuscular Hemoglobin 32.7 PG (27.0-31.0) H Mean Corpuscular Hemoglobin Concent 31.6 G/DL (32.0-36.0) L Red Cell Distribution Width 14.1 % (11.6-14.8) Platelet Count 195 K/UL (150-450) Mean Platelet Volume 6.6 FL (6.5-10.1) Neutrophils (%) (Auto) % (45.0-75.0) Lymphocytes (%) (Auto) % (20.0-45.0) Monocytes (%) (Auto) % (1.0-10.0) Eosinophils (%) (Auto) % (0.0-3.0) Basophils (%) (Auto) % (0.0-2.0) Differential Total Cells Counted 100 Neutrophils % (Manual) 80 % (45-75) H Lymphocytes % (Manual) 10 % (20-45) L Monocytes % (Manual) 7 % (1-10) Eosinophils % (Manual) 3 % (0-3) Basophils % (Manual) 0 % (0-2) Band Neutrophils 0 % (0-8) Platelet Estimate Adequate Platelet Morphology Normal Sodium Level 132 MMOL/L (136-145) L Potassium Level 4.4 MMOL/L (3.5-5.1) Chloride Level 104 MMOL/L (98-107) Carbon Dioxide Level 15 MMOL/L (21-32) L Anion Gap 13 mmol/L (5-15) Blood Urea Nitrogen 77 mg/dL (7-18) H Creatinine 4.8 MG/DL (0.55-1.30) H Estimat Glomerular Filtration Rate 12.3 mL/min (>60) Calcium Level 7.1 MG/DL (8.5-10.1) L Phosphorus Level 3.9 MG/DL (2.5-4.9) Magnesium Level 1.5 MG/DL (1.8-2.4) L Total Bilirubin 0.4 MG/DL (0.2-1.0) Aspartate Amino Transf (AST/SGOT) 15 U/L (15-37) Alanine Aminotransferase (ALT/SGPT) 13 U/L (12-78) Alkaline Phosphatase 79 U/L (46-116) C-Reactive Protein, Quantitative 3.2 mg/dL (0.00-0.90) H Total Protein 5.3 G/DL (6.4-8.2) L Albumin 2.2 G/DL (3.4-5.0) L Globulin 3.1 g/dL Albumin/Globulin Ratio 0.7 (1.0-2.7) L Urine Color Pale yellow Urine Appearance Slightly cloudy Urine pH 8 (4.5-8.0) Urine Specific [place] 1.010 (1.005-1.035) Urine Protein 2+ (NEGATIVE) H Urine Glucose (UA) 4+ (NEGATIVE) H Urine Ketones Negative (NEGATIVE) Urine Occult Blood 5+ (NEGATIVE) H Urine Nitrite Negative (NEGATIVE) Urine Bilirubin Negative (NEGATIVE) Urine Urobilinogen Normal MG/DL (0.0-1.0) Urine Leukocyte Esterase 3+ (NEGATIVE) H Urine RBC Tntc /HPF (0 - 0) H Urine WBC 5-10 /HPF (0 - 0) H Urine Squamous Epithelial Cells Occasional /LPF Urine Bacteria Occasional /HPF (NONE) Current Medications Medications (Trade) Dose Ordered Sig/Dunia Route PRN Reason Start Time Stop Time Status Last Admin Dose Admin Acetaminophen (Tylenol) 650 mg Q4H PRN ORAL fever 05/31/17 11:15 06/30/17 11:14 Amlodipine Besylate (Norvasc) 5 mg BID ORAL 06/01/17 10:30 07/01/17 10:29 06/05/17 09:59 Aspirin (ASA) 81 mg DAILY ORAL 06/01/17 09:00 07/01/17 08:59 06/04/17 08:09 Atorvastatin Calcium (Lipitor) 10 mg BEDTIME ORAL 05/31/17 21:00 06/30/17 20:59 06/04/17 20:58 Chlorhexidine Gluconate (Eloisa-Hex 2%) 1 applic DAILY@2000 TOPIC 05/31/17 20:00 06/30/17 19:59 06/04/17 20:58 Dextrose (Dextrose 50%) STAT PRN IV Hypoglycemia 05/31/17 11:15 06/30/17 11:14 Docusate Sodium (Colace) 100 mg THREE TIMES A DAY ORAL 05/31/17 18:00 06/30/17 17:59 06/05/17 13:42 Duloxetine HCl (Cymbalta) 30 mg DAILY ORAL 06/02/17 09:00 07/02/17 08:59 06/05/17 09:59 Epoetin Jose (Procrit (for non ESRD use)) 10,000 units WED-WED-WED SUBQ 06/02/17 21:00 07/02/17 20:59 06/04/17 20:59 Ertapenem 1 gm/ Sodium Chloride 55 ml @ 110 mls/hr Q24H IVPB 06/05/17 13:00 06/10/17 12:59 06/05/17 13:43 Finasteride (Proscar) 5 mg DAILY ORAL 06/04/17 10:00 07/04/17 09:59 06/05/17 09:59 Heparin Sodium (Porcine) (Heparin 5000 units/ml) 5,000 units EVERY 12 HOURS SUBQ 05/31/17 21:00 06/30/17 20:59 06/04/17 21:00 Hydralazine HCl (Apresoline) 25 mg Q4H PRN ORAL bp of 160 syst and above 05/31/17 14:45 06/30/17 14:44 06/02/17 12:08 Hydralazine HCl (Apresoline) 50 mg Q8HR ORAL 06/04/17 14:00 07/04/17 13:59 06/05/17 13:42 Insulin Aspart (NovoLOG) BEFORE MEALS AND HS SUBQ 05/31/17 11:30 06/30/17 11:29 06/05/17 11:35 Insulin Aspart (NovoLOG) 8 units NOVOTIAC SUBQ 06/05/17 11:50 07/05/17 11:49 06/05/17 11:37 Insulin Detemir (Levemir) 12 units BID@0900,2100 SUBQ 06/05/17 09:00 07/05/17 08:59 06/05/17 10:01 Lansoprazole (Prevacid) 30 mg DAILY ORAL 05/31/17 15:00 06/30/17 14:59 06/05/17 09:59 Metoprolol Tartrate (Lopressor) 50 mg Q12HR ORAL 05/31/17 12:00 06/30/17 11:59 06/05/17 09:59 Morphine Sulfate (Morphine Sulfate) 1 mg Q4H PRN IVP For Pain 05/31/17 11:15 06/07/17 11:14 06/01/17 04:20 Ondansetron HCl (Zofran) 4 mg Q6H PRN IVP Nausea & Vomiting 05/31/17 11:15 06/30/17 11:14 Polyethylene Glycol (Miralax) 17 gm HSPRN PRN ORAL Constipation 05/31/17 11:15 06/30/17 11:14 Sodium Chloride 1,000 ml @ 75 mls/hr [id number] IV 06/01/17 11:45 07/01/17 11:44 06/05/17 10:50 Tamsulosin HCl (Flomax) 0.4 mg BID ORAL 05/31/17 18:00 06/30/17 17:59 06/05/17 09:59 Zolpidem Tartrate (Ambien) 5 mg HSPRN PRN ORAL Insomnia 05/31/17 11:15 06/07/17 11:14 Josue Mcpherson M.D. Jun 05, 2017 14:14
--- NOTE | 2017-06-05 14:28 | Internal Med Progress Note ---
Subjective Date of Service: Jun 05, 2017 Physician Name Dee Maher Attending Physician Christopher Rosado MD Current Medications Medications (Trade) Dose Ordered Sig/Dunia Route PRN Reason Start Time Stop Time Status Last Admin Dose Admin Acetaminophen (Tylenol) 650 mg Q4H PRN ORAL fever 05/31/17 11:15 06/30/17 11:14 Amlodipine Besylate (Norvasc) 5 mg BID ORAL 06/01/17 10:30 07/01/17 10:29 06/05/17 09:59 Aspirin (ASA) 81 mg DAILY ORAL 06/01/17 09:00 07/01/17 08:59 06/04/17 08:09 Atorvastatin Calcium (Lipitor) 10 mg BEDTIME ORAL 05/31/17 21:00 06/30/17 20:59 06/04/17 20:58 Chlorhexidine Gluconate (Eloisa-Hex 2%) 1 applic DAILY@2000 TOPIC 05/31/17 20:00 06/30/17 19:59 06/04/17 20:58 Dextrose (Dextrose 50%) STAT PRN IV Hypoglycemia 05/31/17 11:15 06/30/17 11:14 Docusate Sodium (Colace) 100 mg THREE TIMES A DAY ORAL 05/31/17 18:00 06/30/17 17:59 06/05/17 13:42 Duloxetine HCl (Cymbalta) 30 mg DAILY ORAL 06/02/17 09:00 07/02/17 08:59 06/05/17 09:59 Epoetin Jose (Procrit (for non ESRD use)) 10,000 units WED-WED-WED SUBQ 06/02/17 21:00 07/02/17 20:59 06/04/17 20:59 Ertapenem 1 gm/ Sodium Chloride 55 ml @ 110 mls/hr Q24H IVPB 06/05/17 13:00 06/10/17 12:59 06/05/17 13:43 Finasteride (Proscar) 5 mg DAILY ORAL 06/04/17 10:00 07/04/17 09:59 06/05/17 09:59 Heparin Sodium (Porcine) (Heparin 5000 units/ml) 5,000 units EVERY 12 HOURS SUBQ 05/31/17 21:00 06/30/17 20:59 06/04/17 21:00 Hydralazine HCl (Apresoline) 25 mg Q4H PRN ORAL bp of 160 syst and above 05/31/17 14:45 06/30/17 14:44 06/02/17 12:08 Hydralazine HCl (Apresoline) 50 mg Q8HR ORAL 06/04/17 14:00 07/04/17 13:59 06/05/17 13:42 Insulin Aspart (NovoLOG) BEFORE MEALS AND HS SUBQ 05/31/17 11:30 06/30/17 11:29 06/05/17 11:35 Insulin Aspart (NovoLOG) 8 units NOVOTIAC SUBQ 06/05/17 11:50 07/05/17 11:49 06/05/17 11:37 Insulin Detemir (Levemir) 12 units BID@0900,2100 SUBQ 06/05/17 09:00 07/05/17 08:59 06/05/17 10:01 Lansoprazole (Prevacid) 30 mg DAILY ORAL 05/31/17 15:00 06/30/17 14:59 06/05/17 09:59 Metoprolol Tartrate (Lopressor) 50 mg Q12HR ORAL 05/31/17 12:00 06/30/17 11:59 06/05/17 09:59 Morphine Sulfate (Morphine Sulfate) 1 mg Q4H PRN IVP For Pain 05/31/17 11:15 06/07/17 11:14 06/01/17 04:20 Ondansetron HCl (Zofran) 4 mg Q6H PRN IVP Nausea & Vomiting 05/31/17 11:15 06/30/17 11:14 Polyethylene Glycol (Miralax) 17 gm HSPRN PRN ORAL Constipation 05/31/17 11:15 06/30/17 11:14 Sodium Chloride 1,000 ml @ 75 mls/hr [id number] IV 06/01/17 11:45 07/01/17 11:44 06/05/17 10:50 Tamsulosin HCl (Flomax) 0.4 mg BID ORAL 05/31/17 18:00 06/30/17 17:59 06/05/17 09:59 Zolpidem Tartrate (Ambien) 5 mg HSPRN PRN ORAL Insomnia 05/31/17 11:15 06/07/17 11:14 Allergies: Coded Allergies: CEFEPIME (Verified Allergy, Intermediate, Rash, 01/23/13) ROS Limited/Unobtainable: No Constitutional: Reports: no symptoms HEENT: Reports: no symptoms Cardiovascular: Reports: no symptoms Respiratory: Reports: no symptoms Gastrointestinal/Abdominal: Reports: no symptoms Genitourinary: Reports: no symptoms Neurologic/Psychiatric: Reports: no symptoms Subjective 62 YO M admitted with hematuria. Cover for [facility] - Dr Rosado. Discharge held yesterday due to urinary retention. Objective Last Vital Signs Date Time Temp Pulse Resp B/P (MAP) Pulse Ox O2 Delivery O2 Flow Rate FiO2 06/05/17 13:42 124/64 06/05/17 12:01 99.5 78 20 96 Room Air 06/05/17 08:00 21 Laboratory Tests Test 06/04/17 17:45 06/04/17 21:10 06/05/17 05:15 06/05/17 12:20 Glucose Level 639 MG/DL (74-106) #*H 689 MG/DL (74-106) *H 468 MG/DL (74-106) #H White Blood Count 6.9 K/UL (4.8-10.8) Red Blood Count 2.33 M/UL (4.70-6.10) L Hemoglobin 7.6 G/DL (14.2-18.0) L Hematocrit 24.1 % (42.0-52.0) L Mean Corpuscular Volume 104 FL (80-99) H Mean Corpuscular Hemoglobin 32.7 PG (27.0-31.0) H Mean Corpuscular Hemoglobin Concent 31.6 G/DL (32.0-36.0) L Red Cell Distribution Width 14.1 % (11.6-14.8) Platelet Count 195 K/UL (150-450) Mean Platelet Volume 6.6 FL (6.5-10.1) Neutrophils (%) (Auto) % (45.0-75.0) Lymphocytes (%) (Auto) % (20.0-45.0) Monocytes (%) (Auto) % (1.0-10.0) Eosinophils (%) (Auto) % (0.0-3.0) Basophils (%) (Auto) % (0.0-2.0) Differential Total Cells Counted 100 Neutrophils % (Manual) 80 % (45-75) H Lymphocytes % (Manual) 10 % (20-45) L Monocytes % (Manual) 7 % (1-10) Eosinophils % (Manual) 3 % (0-3) Basophils % (Manual) 0 % (0-2) Band Neutrophils 0 % (0-8) Platelet Estimate Adequate Platelet Morphology Normal Sodium Level 132 MMOL/L (136-145) L Potassium Level 4.4 MMOL/L (3.5-5.1) Chloride Level 104 MMOL/L (98-107) Carbon Dioxide Level 15 MMOL/L (21-32) L Anion Gap 13 mmol/L (5-15) Blood Urea Nitrogen 77 mg/dL (7-18) H Creatinine 4.8 MG/DL (0.55-1.30) H Estimat Glomerular Filtration Rate 12.3 mL/min (>60) Calcium Level 7.1 MG/DL (8.5-10.1) L Phosphorus Level 3.9 MG/DL (2.5-4.9) Magnesium Level 1.5 MG/DL (1.8-2.4) L Total Bilirubin 0.4 MG/DL (0.2-1.0) Aspartate Amino Transf (AST/SGOT) 15 U/L (15-37) Alanine Aminotransferase (ALT/SGPT) 13 U/L (12-78) Alkaline Phosphatase 79 U/L (46-116) C-Reactive Protein, Quantitative 3.2 mg/dL (0.00-0.90) H Total Protein 5.3 G/DL (6.4-8.2) L Albumin 2.2 G/DL (3.4-5.0) L Globulin 3.1 g/dL Albumin/Globulin Ratio 0.7 (1.0-2.7) L Urine Color Pale yellow Urine Appearance Slightly cloudy Urine pH 8 (4.5-8.0) Urine Specific [place] 1.010 (1.005-1.035) Urine Protein 2+ (NEGATIVE) H Urine Glucose (UA) 4+ (NEGATIVE) H Urine Ketones Negative (NEGATIVE) Urine Occult Blood 5+ (NEGATIVE) H Urine Nitrite Negative (NEGATIVE) Urine Bilirubin Negative (NEGATIVE) Urine Urobilinogen Normal MG/DL (0.0-1.0) Urine Leukocyte Esterase 3+ (NEGATIVE) H Urine RBC Tntc /HPF (0 - 0) H Urine WBC 5-10 /HPF (0 - 0) H Urine Squamous Epithelial Cells Occasional /LPF Urine Bacteria Occasional /HPF (NONE) Intake and Output 06/05/17 06/06/17 19:00 07:00 Intake Total 75 ml Balance 75 ml IV Total 75 ml Objective General Appearance: WD/WN, no apparent distress, alert EENT: PERRL/EOMI, normal ENT inspection, TMs normal Neck: non-tender, normal alignment, supple, normal inspection Cardiovascular: normal peripheral pulses, normal rate, regular rhythm, no gallop/murmur, no JVD Respiratory/Chest: chest wall non-tender, lungs clear, normal breath sounds, no respiratory distress, no accessory muscle use Abdomen: normal bowel sounds, non tender, soft, no organomegaly, no mass Neurologic: produce inspector II-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 (5) CAD (coronary artery disease) (6) Acute on chronic renal failure Assessment & Plan: See nephrology note. Await renal ultrasound. (7) Anemia in chronic kidney disease (8) DM (diabetes mellitus) Assessment & Plan: Hypoglycemic this am. Continue novolog sliding scale. See endocrinology note. (9) History of simultaneous kidney and pancreas transplant (10) BPH (benign prostatic hyperplasia) Assessment & Plan: continue flomax (11) Gastritis Assessment & Plan: Continue prevacid (12) Hypercholesteremia Assessment & Plan: Continue lipitor (13) Hematuria Assessment & Plan: Await urology consult as R/O bladder cancer. (14) Retention, urine Assessment & Plan: Continue hernandez cath. DEE MAHER Jun 05, 2017 14:27
[2017-06-05] MEDS ORDERED: 1/2 NS 1000ml IV ONE (15:16)
[2017-06-05 16:00] VITALS: BP 150/75
--- NOTE | 2017-06-05 16:29 | Pulmonology Progress Note ---
Assessment/Plan Problems: (1) Hematuria (2) Pulmonary HTN (3) Anemia in chronic kidney disease (4) CAD (coronary artery disease) (5) HTN (hypertension) (6) DM (diabetes mellitus) Assessment/Plan urine is dark today BS better now US of renal reviewed adjust insulin no new complains H/H stable IV fluids check electrolytes monitor BP sliding scale. Subjective ROS Limited/Unobtainable: No Constitutional: Reports: no symptoms Respiratory: Reports: no symptoms Allergies: Coded Allergies: CEFEPIME (Verified Allergy, Intermediate, Rash, 01/23/13) Objective Last 24 Hour Vital Signs Date Time Temp Pulse Resp B/P (MAP) Pulse Ox O2 Delivery O2 Flow Rate FiO2 06/05/17 16:00 98.9 74 20 150/75 97 Room Air 06/05/17 13:42 124/64 06/05/17 12:01 99.5 78 20 155/78 96 Room Air 06/05/17 09:59 77 159/78 06/05/17 09:59 77 159/78 06/05/17 08:00 77 20 Room Air 21 06/05/17 08:00 99.3 77 18 159/78 99 Room Air 06/05/17 05:54 149/87 06/05/17 04:00 98.2 88 21 149/87 99 Room Air 06/05/17 00:00 98.7 97 21 166/90 98 Room Air 06/04/17 22:10 166/90 06/04/17 20:58 89 154/82 06/04/17 20:00 98.1 89 21 154/82 98 Room Air 06/04/17 18:55 103 18 Room Air 21 06/04/17 18:47 93 137/81 06/04/17 18:40 93 137/81 Intake and Output 06/05/17 06/06/17 19:00 07:00 Intake Total 100 ml Balance 100 ml IV Total 100 ml Objective General Appearance: WD/WN HEENT: normocephalic, anicteric Cardiovascular: normal peripheral pulses, normal rate Abdomen: normal bowel sounds, no organomegaly Genitourinary: normal external genitalia Extremities: no clubbing Skin: no lesions Lymphatic: no neck adenopathy Laboratory Tests 06/04/17 17:45: Glucose Level 639#*H 06/04/17 21:10: Glucose Level 689*H 06/05/17 05:15: Glucose Level 468#H, White Blood Count 6.9, Red Blood Count 2.33L, Hemoglobin 7.6L, Hematocrit 24.1L, Mean Corpuscular Volume 104H, Mean Corpuscular Hemoglobin 32.7H, Mean Corpuscular Hemoglobin Concent 31.6L, Red Cell Distribution Width 14.1, Platelet Count 195, Mean Platelet Volume 6.6, Neutrophils (%) (Auto) , Lymphocytes (%) (Auto) , Monocytes (%) (Auto) , Eosinophils (%) (Auto) , Basophils (%) (Auto) , Differential Total Cells Counted 100, Neutrophils % (Manual) 80H, Lymphocytes % (Manual) 10L, Monocytes % (Manual) 7, Eosinophils % (Manual) 3, Basophils % (Manual) 0, Band Neutrophils 0, Platelet Estimate Adequate, Platelet Morphology Normal, Sodium Level 132L, Potassium Level 4.4, Chloride Level 104, Carbon Dioxide Level 15L, Anion Gap 13, Blood Urea Nitrogen 77H, Creatinine 4.8H, Estimat Glomerular Filtration Rate 12.3, Calcium Level 7.1L, Phosphorus Level 3.9, Magnesium Level 1.5L, Total Bilirubin 0.4, Aspartate Amino Transf (AST/SGOT) 15, Alanine Aminotransferase (ALT/SGPT) 13, Alkaline Phosphatase 79, C-Reactive Protein, Quantitative 3.2H, Total Protein 5.3L, Albumin 2.2L, Globulin 3.1, Albumin/ Globulin Ratio 0.7L 06/05/17 12:20: Urine Color Pale yellow, Urine Appearance Slightly cloudy, Urine pH 8, Urine Specific [place] 1.010, Urine Protein 2+H, Urine Glucose (UA) 4+H, Urine Ketones Negative, Urine Occult Blood 5+H, Urine Nitrite Negative, Urine Bilirubin Negative, Urine Urobilinogen Normal, Urine Leukocyte Esterase 3+H, Urine RBC TntcH, Urine WBC 5-10H, Urine Squamous Epithelial Cells Occasional, Urine Bacteria Occasional Current Medications Medications (Trade) Dose Ordered Sig/Dunia Route PRN Reason Start Time Stop Time Status Last Admin Dose Admin Acetaminophen (Tylenol) 650 mg Q4H PRN ORAL fever 05/31/17 11:15 06/30/17 11:14 Amlodipine Besylate (Norvasc) 5 mg BID ORAL 06/01/17 10:30 07/01/17 10:29 06/05/17 09:59 Aspirin (ASA) 81 mg DAILY ORAL 06/01/17 09:00 07/01/17 08:59 06/04/17 08:09 Atorvastatin Calcium (Lipitor) 10 mg BEDTIME ORAL 05/31/17 21:00 06/30/17 20:59 06/04/17 20:58 Chlorhexidine Gluconate (Eloisa-Hex 2%) 1 applic DAILY@2000 TOPIC 05/31/17 20:00 06/30/17 19:59 06/04/17 20:58 Dextrose (Dextrose 50%) STAT PRN IV Hypoglycemia 05/31/17 11:15 06/30/17 11:14 Docusate Sodium (Colace) 100 mg THREE TIMES A DAY ORAL 05/31/17 18:00 06/30/17 17:59 06/05/17 13:42 Duloxetine HCl (Cymbalta) 30 mg DAILY ORAL 06/02/17 09:00 07/02/17 08:59 06/05/17 09:59 Epoetin Jose (Procrit (for non ESRD use)) 10,000 units WED-WED-WED SUBQ 06/02/17 21:00 07/02/17 20:59 06/04/17 20:59 Ertapenem 1 gm/ Sodium Chloride 55 ml @ 110 mls/hr Q24H IVPB 06/05/17 13:00 06/10/17 12:59 06/05/17 13:43 Finasteride (Proscar) 5 mg DAILY ORAL 06/04/17 10:00 07/04/17 09:59 06/05/17 09:59 Heparin Sodium (Porcine) (Heparin 5000 units/ml) 5,000 units EVERY 12 HOURS SUBQ 05/31/17 21:00 06/30/17 20:59 06/04/17 21:00 Hydralazine HCl (Apresoline) 25 mg Q4H PRN ORAL bp of 160 syst and above 05/31/17 14:45 06/30/17 14:44 06/02/17 12:08 Hydralazine HCl (Apresoline) 50 mg Q8HR ORAL 06/04/17 14:00 07/04/17 13:59 06/05/17 13:42 Insulin Aspart (NovoLOG) BEFORE MEALS AND HS SUBQ 05/31/17 11:30 06/30/17 11:29 06/05/17 11:35 Insulin Aspart (NovoLOG) 8 units NOVOTIAC SUBQ 06/05/17 11:50 07/05/17 11:49 06/05/17 11:37 Insulin Detemir (Levemir) 12 units BID@0900,2100 SUBQ 06/05/17 09:00 07/05/17 08:59 06/05/17 10:01 Lansoprazole (Prevacid) 30 mg DAILY ORAL 05/31/17 15:00 06/30/17 14:59 06/05/17 09:59 Metoprolol Tartrate (Lopressor) 50 mg Q12HR ORAL 05/31/17 12:00 06/30/17 11:59 06/05/17 09:59 Morphine Sulfate (Morphine Sulfate) 1 mg Q4H PRN IVP For Pain 05/31/17 11:15 06/07/17 11:14 06/01/17 04:20 Ondansetron HCl (Zofran) 4 mg Q6H PRN IVP Nausea & Vomiting 05/31/17 11:15 06/30/17 11:14 Polyethylene Glycol (Miralax) 17 gm HSPRN PRN ORAL Constipation 05/31/17 11:15 06/30/17 11:14 Sodium Chloride 1,000 ml @ 75 mls/hr [id number] IV 06/01/17 11:45 07/01/17 11:44 06/05/17 10:50 Tamsulosin HCl (Flomax) 0.4 mg BID ORAL 05/31/17 18:00 06/30/17 17:59 06/05/17 09:59 Zolpidem Tartrate (Ambien) 5 mg HSPRN PRN ORAL Insomnia 05/31/17 11:15 06/07/17 11:14 MARGO GALLEGOS Jun 05, 2017 16:29
--- NOTE | 2017-06-05 18:15 | Consultation ---
DATE OF CONSULTATION: 06/05/2017 UROLOGY CONSULTATION AND PROCEDURE REPORT CONSULTING PHYSICIAN: Deon Lance M.D. REASON FOR CONSULTATION: The patient is a 62-year-old male with a very substantial list of medical problems, admitted to the hospital with urinary tract infection and gross hematuria and substantial other medical conditions. The patient has been having difficulty urinating, postvoid residual 400 to 500 mL despite being on Flomax twice a day. I was asked to help in this situation. PAST MEDICAL HISTORY: Significant for encephalopathy for having diabetes mellitus, high cholesterol, and urinary tract infection along with multiple other medical problems. PAST SURGICAL HISTORY: He has had head trauma. He has had a kidney and pancreas transplants. SOCIAL HISTORY: He lives in detention facility. FAMILY HISTORY: Noncontributory. REVIEW OF SYSTEMS: Relatively noncontributory. PHYSICAL EXAMINATION: VITAL SIGNS: Temperature 98.6 degrees, pulse of 97, respiratory rate of 20, and blood pressure 155/76. HEAD AND NECK: No palpable abnormalities. LUNGS: Clear to auscultation. HEART: S1 and S2. Heart sounds present. ABDOMEN: A little distended. There is a midline scar, well healed. BACK: No CVA tenderness. GENITOURINARY: Testicles bilaterally descended without masses. Penis with moderate swelling, circumcised, but the swelling of the penis is causing the skin to engulf the glans penis. RECTAL: Prostate is moderately enlarged without nodules. Also on physical exam, there is definitely stenosis of the meatus of the penis. RECOMMENDATIONS: My recommendation was to place Cline catheter. I proceeded with having to squeeze the excess swelling from the penile skin around the glans penis. Then, I could retract it back to expose the tight urethral meatus. I then dilated this with sounds to 18[place]. I used Xylocaine lubricant in the urethra and passed a 16-[place] Cline catheter where there was urine coming out nicely with light hematuria to it. My assessment on this patient is he should improve from a urinary standpoint now that I dilated the urethral meatus, placed a Cline catheter. I recommend the catheter stay in place for a day or two, observe that the urine clear up, and then it could be removed, and then just continue him on Flomax. If there are any questions or problems with this plan, please let me know and I can adjust the plan as needed. Deon Lance DR: Tahir JOB#: [id number] CC:
--- NOTE | 2017-06-05 19:30 | Consultation ---
DATE OF CONSULTATION: 06/05/2017 INFECTIOUS DISEASE CONSULTATION CONSULTING PHYSICIAN: Josue Mcpherson M.D. REQUESTING PHYSICIAN: Christopher Rosado M.D. REASON FOR CONSULTATION: Urinary tract infection with possible sepsis and fever in a patient who is allergic to cephalosporin, recommendation for antibiotics treatment. 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 As per the staff over there, the patient has intermittent hematuria on and off at the rehab facility. He had no suprapubic pain. No fever or chills. No weight loss. No previous history of hematuria. Upon arrival to the emergency room, the patient was found to be hyperglycemic on top, so he was admitted to the hospital for further evaluation and management of his hyperglycemia, progressive renal failure, and acute hematuria with urinary retention. The patient had multiple attempts to place Cline catheter, which failed by the nursing staff. Finally, he was seen by a urologist who was able to put a Cline catheter in him and urinalysis with culture was sent. After the Cline was placed, the patient was started on ertapenem by the primary physician and I was consulted for antibiotics treatment and further management. As of note, the patient is a poor historian, cannot provide good history. History was mainly obtained from the medical record and nursing staff. REVIEW OF SYSTEMS: Unable to obtain at this point. The patient is poor historian, could not provide good history. PAST MEDICAL HISTORY: Significant for coronary artery disease, hypertension, asthma, diabetes, poorly controlled; kidney cancer, status post nephrectomy, gastroesophageal reflux disease, depression disorder, CVA, and encephalopathy. PAST SURGICAL HISTORY: He had nephrectomy and renal pancreatic transplantation. ALLERGIES: He is allergic to cefepime with rash, unclear what kind of exact reaction he has. MEDICATIONS: He is on ertapenem 1 g IV q.24 hours. For the rest of his medications, please refer to MAR. SOCIAL HISTORY: The patient lives at the rehabilitation facility. No recent drugs, tobacco, or alcohol. FAMILY HISTORY: Unable to obtain. PHYSICAL EXAMINATION: VITAL SIGNS: Temperature 99.5, pulse 78, respirations 20, blood pressure 155/78, and saturation 96% on room air. GENERAL: A middle-aged male, up in bed, awake, alert, comfortable, not in acute distress. HEENT: Normocephalic and atraumatic. Pupils are reactive to light. Moist oral mucosa. No exudate. NECK: Supple. No lymphadenopathy. CARDIOVASCULAR: Regular rate and rhythm. No murmur or gallop. LUNGS: Clear bilaterally. Diminished breathing sounds at the bases. No wheezing or rhonchi. ABDOMEN: Soft, nontender, and distended. No rebound. No organomegaly. No ascites. EXTREMITIES: No edema. No cyanosis. GENITOURINARY: He had Cline catheter in his urethra with pinkish color urine. No pus or drainage coming out of the catheter site or the urethra. LABORATORY AND DIAGNOSTIC DATA: Labs showed white count of 6.9, hemoglobin of 7.6, and platelet count of 195,000. BUN of 77, creatinine of 4.8, glucose of 464, and calcium of 7.1. Urinalysis showed negative nitrite, +3 leukocyte esterase, WBC 5 to 10, and too numerous to count red blood cells. Microbiology, no culture was obtained during this hospitalization yet. IMAGING: Chest x-ray today showed linear opacity of the left base could represent atelectasis. Renal ultrasound showed distended bladder with large post voidal residual, left iliac fossa transplant kidney with moderate hydronephrosis, and mildly elevated transplant kidney resistive indices. ASSESSMENT AND RECOMMENDATION: 1. Sepsis, suspect source genitourinary tract with urine retention. We will send blood culture. Continue ertapenem empiric treatment for now. Await urine culture results. 2. Urinary tract infection due to retention. We will send urine culture after he had a Cline placed and continue ertapenem empiric treatment since he is allergic to cephalosporin. 3. Hematuria, suspect due to enlarged prostate, status post Cline catheter placement. Urology team is following. May need a cystoscopy to rule out malignant process. 4. History of simultaneous kidney and pancreas transplant, status post rejection. May need hemodialysis since he is becoming edematous with worsening renal failure and uremia. 5. Diabetic ketoacidosis. Recommend tight glycemic control to keep blood sugar pre meals less than 130 and postprandial less than 180. 6. Chronic kidney disease, stage III, on hydration. Continue to monitor renal function. May need hemodialysis soon. If agrees, Renal team is following. Avoid nephrotoxic. 7. Urinary retention, suspect due to enlarged prostate, rule out malignant process, status post Cline. May need cystoscopy for further evaluation. Thank you for the consult. Infectious Disease will continue to follow. Josue Mcpherson M.D. DR: VICKY JOB#: [id number] CC:
[2017-06-05 20:00] VITALS: BP 144/74
[2017-06-05] MEDS: Dyna-Hex 2% Top Sol 2oz TOPIC SCH (21:08)
[2017-06-06 00:02] VITALS: BP 142/73
[2017-06-06 04:00] VITALS: BP 139/75
[2017-06-06 06:08] LABS: BASOPHILS % (AUTO) 1.1 % (0.0-2.0); EOSINOPHILS % (AUTO) 4.3 % (0.0-3.0); LYMPHOCYTES % (AUTO) 23.7 % (20.0-45.0); MEAN CORPUSCULAR HEMOGLOBIN 33.8 PG (27.0-31.0); MEAN CORPUSCULAR HGB CONC 33.3 G/DL (32.0-36.0); MEAN CORPUSCULAR VOLUME 101 FL (80-99); MEAN PLATELET VOLUME 6.7 FL (6.5-10.1); MONOCYTES % (AUTO) 9.8 % (1.0-10.0); NEUTROPHILS % (AUTO) 61.2 % (45.0-75.0); PLATELET COUNT 206 K/UL (150-450); RED BLOOD COUNT 2.36 M/UL (4.70-6.10); RED CELL DISTRIBUTION WIDTH 13.7 % (11.6-14.8); WHITE BLOOD COUNT 5.6 K/UL (4.8-10.8)
[2017-06-06] MEDS: HydrALAZINE 25mg tab ORAL SCH ×3 (06:09→21:31)
[2017-06-06] MEDS: NovoLOG Insulin Flexpen SUBQ SCH ×7 (06:11→21:34)
[2017-06-06 06:22] LABS: ALANINE AMINOTRANSFERASE 10 U/L (12-78); ALBUMIN/GLOBULIN RATIO 0.7 (1.0-2.7); ANION GAP 13 mmol/L (5-15); ASPARTATE AMINO TRANSFERASE 14 U/L (15-37); CALCIUM 8.3 MG/DL (8.5-10.1); CARBON DIOXIDE 17 MMOL/L (21-32); CHLORIDE 109 MMOL/L (98-107); CREATININE 5.1 MG/DL (0.55-1.30); GLOMERULAR FILTRATION RATE 11.5 mL/min (>60); MAGNESIUM 1.5 MG/DL (1.8-2.4); PHOSPHORUS 3.9 MG/DL (2.5-4.9); POTASSIUM 4.2 MMOL/L (3.5-5.1); SODIUM 139 MMOL/L (136-145); TOTAL PROTEIN 5.7 G/DL (6.4-8.2)
--- NOTE | 2017-06-06 06:57 | General Progress Note ---
Assessment/Plan Problem List: (1) Hematuria ICD Codes: R31.9 - Hematuria SNOMED: 04156078 (2) CKD (chronic kidney disease), stage III ICD Codes: N18.3 - CKD (chronic kidney disease), stage III SNOMED: 600662643 (3) Anemia in chronic kidney disease ICD Codes: D63.1 - Anemia in chronic kidney disease; N03.9 - Anemia in chronic kidney disease SNOMED: 048293952 (4) Hypoparathyroidism ICD Codes: E20.9 - Hypoparathyroidism, unspecified SNOMED: 59939138 (5) DM (diabetes mellitus) ICD Codes: E11.9 - DM (diabetes mellitus) SNOMED: 05124639 Assessment/Plan fasting glucose improved continue Levemir 12 units bid continue Novolog 8 units ac tid + SSI Subjective Allergies: Coded Allergies: CEFEPIME (Verified Allergy, Intermediate, Rash, 01/23/13) All Systems: reviewed and negative except above Subjective events noted Objective Last 24 Hour Vital Signs Date Time Temp Pulse Resp B/P (MAP) Pulse Ox O2 Delivery O2 Flow Rate FiO2 06/06/17 06:09 139/75 06/06/17 04:00 97.9 77 21 139/75 97 Room Air 06/06/17 00:02 98.2 82 20 142/73 96 Room Air 06/05/17 23:52 63 18 Room Air 06/05/17 21:37 144/83 06/05/17 21:08 88 144/74 06/05/17 20:00 98.4 88 20 144/74 95 Room Air 06/05/17 18:21 74 150/75 06/05/17 16:00 98.9 74 20 150/75 97 Room Air 06/05/17 13:42 124/64 06/05/17 12:01 99.5 78 20 155/78 96 Room Air 06/05/17 09:59 77 159/78 06/05/17 09:59 77 159/78 06/05/17 08:00 77 20 Room Air 21 06/05/17 08:00 99.3 77 18 159/78 99 Room Air Laboratory Tests 06/05/17 12:20: Urine Color Pale yellow, Urine Appearance Slightly cloudy, Urine pH 8, Urine Specific [place] 1.010, Urine Protein 2+H, Urine Glucose (UA) 4+H, Urine Ketones Negative, Urine Occult Blood 5+H, Urine Nitrite Negative, Urine Bilirubin Negative, Urine Urobilinogen Normal, Urine Leukocyte Esterase 3+H, Urine RBC TntcH, Urine WBC 5-10H, Urine Squamous Epithelial Cells Occasional, Urine Bacteria Occasional 06/06/17 05:30: White Blood Count 5.6, Red Blood Count 2.36L, Hemoglobin 8.0L, Hematocrit 23.9L , Mean Corpuscular Volume 101H, Mean Corpuscular Hemoglobin 33.8H, Mean Corpuscular Hemoglobin Concent 33.3, Red Cell Distribution Width 13.7, Platelet Count 206, Mean Platelet Volume 6.7, Neutrophils (%) (Auto) 61.2, Lymphocytes (% ) (Auto) 23.7, Monocytes (%) (Auto) 9.8, Eosinophils (%) (Auto) 4.3H, Basophils (%) (Auto) 1.1, Erythrocyte Sedimentation Rate [Pending], Sodium Level 139, Potassium Level 4.2, Chloride Level 109H, Carbon Dioxide Level 17L, Anion Gap 13 , Blood Urea Nitrogen 71H, Creatinine 5.1H, Estimat Glomerular Filtration Rate 11.5, Glucose Level 137#H, Calcium Level 8.3L, Phosphorus Level 3.9, Magnesium Level 1.5L, Total Bilirubin 0.4, Aspartate Amino Transf (AST/SGOT) 14L, Alanine Aminotransferase (ALT/SGPT) 10L, Alkaline Phosphatase 82, Total Protein 5.7L, Albumin 2.3L, Globulin 3.4, Albumin/Globulin Ratio 0.7L Height (Feet): 5 Height (Inches): 10.00 Weight (Pounds): 200 General Appearance: no apparent distress Neck: normal alignment Cardiovascular: normal rate Respiratory/Chest: lungs clear Abdomen: normal bowel sounds Objective Current Medications Medications (Trade) Dose Ordered Sig/Dunia Route PRN Reason Start Time Stop Time Status Last Admin Dose Admin Acetaminophen (Tylenol) 650 mg Q4H PRN ORAL fever 05/31/17 11:15 06/30/17 11:14 Amlodipine Besylate (Norvasc) 5 mg BID ORAL 06/01/17 10:30 07/01/17 10:29 06/05/17 18:21 Aspirin (ASA) 81 mg DAILY ORAL 06/01/17 09:00 07/01/17 08:59 06/04/17 08:09 Atorvastatin Calcium (Lipitor) 10 mg BEDTIME ORAL 05/31/17 21:00 06/30/17 20:59 06/05/17 21:08 Chlorhexidine Gluconate (Eloisa-Hex 2%) 1 applic DAILY@2000 TOPIC 05/31/17 20:00 06/30/17 19:59 06/05/17 21:08 Dextrose (Dextrose 50%) STAT PRN IV Hypoglycemia 05/31/17 11:15 06/30/17 11:14 Docusate Sodium (Colace) 100 mg THREE TIMES A DAY ORAL 05/31/17 18:00 06/30/17 17:59 06/05/17 18:21 Duloxetine HCl (Cymbalta) 30 mg DAILY ORAL 06/02/17 09:00 07/02/17 08:59 06/05/17 09:59 Epoetin Jose (Procrit (for non ESRD use)) 10,000 units WED-WED-WED SUBQ 06/02/17 21:00 07/02/17 20:59 06/04/17 20:59 Ertapenem 1 gm/ Sodium Chloride 55 ml @ 110 mls/hr Q24H IVPB 06/05/17 13:00 06/10/17 12:59 06/05/17 13:43 Finasteride (Proscar) 5 mg DAILY ORAL 06/04/17 10:00 07/04/17 09:59 06/05/17 09:59 Heparin Sodium (Porcine) (Heparin 5000 units/ml) 5,000 units EVERY 12 HOURS SUBQ 05/31/17 21:00 06/30/17 20:59 06/05/17 21:12 Hydralazine HCl (Apresoline) 25 mg Q4H PRN ORAL bp of 160 syst and above 05/31/17 14:45 06/30/17 14:44 06/02/17 12:08 Hydralazine HCl (Apresoline) 50 mg Q8HR ORAL 06/04/17 14:00 07/04/17 13:59 06/06/17 06:09 Insulin Aspart (NovoLOG) BEFORE MEALS AND HS SUBQ 05/31/17 11:30 06/30/17 11:29 06/06/17 06:11 Insulin Aspart (NovoLOG) 8 units NOVOTIAC SUBQ 06/05/17 11:50 07/05/17 11:49 06/05/17 11:37 Insulin Detemir (Levemir) 12 units BID@0900,2100 SUBQ 06/05/17 09:00 07/05/17 08:59 06/05/17 21:13 Lansoprazole (Prevacid) 30 mg DAILY ORAL 05/31/17 15:00 06/30/17 14:59 06/05/17 09:59 Metoprolol Tartrate (Lopressor) 50 mg Q12HR ORAL 05/31/17 12:00 06/30/17 11:59 06/05/17 21:08 Morphine Sulfate (Morphine Sulfate) 1 mg Q4H PRN IVP For Pain 05/31/17 11:15 06/07/17 11:14 06/01/17 04:20 Ondansetron HCl (Zofran) 4 mg Q6H PRN IVP Nausea & Vomiting 05/31/17 11:15 06/30/17 11:14 Polyethylene Glycol (Miralax) 17 gm HSPRN PRN ORAL Constipation 05/31/17 11:15 06/30/17 11:14 Sodium Chloride 1,000 ml @ 75 mls/hr [id number] IV 06/01/17 11:45 07/01/17 11:44 06/05/17 21:40 Tamsulosin HCl (Flomax) 0.4 mg BID ORAL 05/31/17 18:00 06/30/17 17:59 06/05/17 18:21 Zolpidem Tartrate (Ambien) 5 mg HSPRN PRN ORAL Insomnia 05/31/17 11:15 06/07/17 11:14 Item Value Date Time Bedside Blood Glucose 134 mg/dl H 06/06/17 0611 Bedside Blood Glucose 275 mg/dl H 06/05/17 2113 Bedside Blood Glucose 239 mg/dl H 06/05/17 1650 Bedside Blood Glucose 468 mg/dl H 06/05/17 1001 MALKA SHERIFF Jun 06, 2017 06:57
[2017-06-06 07:26] LABS: ERYTHROCYTE SEDIMENTATION RATE 87 MM/HR (0-20)
[2017-06-06 08:15] VITALS: BP 108/49
[2017-06-06] MEDS: Heparin 5000 units/ml inj SUBQ SCH ×2 (08:55→21:33)
[2017-06-06] MEDS: Metoprolol Tartrate 50mg tab ORAL SCH ×2 (08:55→21:31)
[2017-06-06] MEDS: Aspirin Baby 81mg ORAL SCH (08:55)
[2017-06-06] MEDS ORDERED: 1/2 NS 1000ml IV ONE (09:09)
[2017-06-06] MEDS ORDERED: Tubing IV Secondary IV ONE (09:09)
[2017-06-06] MEDS ORDERED: NS Irrig 1000ml ONE (09:09)
[2017-06-06] MEDS: Tamsulosin 0.4mg cap ORAL SCH ×2 (09:40→17:36)
[2017-06-06] MEDS: Docusate 100mg cap ORAL SCH ×3 (09:40→17:36)
[2017-06-06] MEDS: DULoxetine 30mg cap ORAL SCH (09:40)
[2017-06-06] MEDS: Levemir Flexpen SUBQ SCH ×2 (09:41→21:33)
--- NOTE | 2017-06-06 11:11 | Nephrology Progress Note ---
Assessment/Plan Problem List: (1) Anemia in chronic kidney disease (2) HTN (hypertension) (3) CKD (chronic kidney disease), stage III (4) DM (diabetes mellitus) Assessment Patient has urinary retention now has hernandez (1) CKD (chronic kidney disease), stage III, superimposed acute- Cr 3.1 a year ago now 5.1 (2) Dehydration- Partly (3) Hyperglycemia due to type 2 diabetes mellitus (4) BPH (benign prostatic hypertrophy) (5) Nephropathy, diabetic (6) History of simultaneous kidney and pancreas transplant (7) UTI (urinary tract infection) (8) Anemia of CKD Plan Plan: long discussion at presence of RN- Agreed with hernandez Was put in by Uro last evening bedside bladder scanshows urinary retention Slow Hydrate- BP and BS control- Flomax PO- monitor renal parameters Anemia [place] 2D Echo: Left ventricular ejection fraction estimated to be 55 %. No evidence of left ventricular hypertrophy. per orders Kidney JOHNNY- Impression: Markedly distended bladder with large post void residual Left iliac fossa transplant kidney with moderate hydronephrosis. Suspect hydronephrosis is secondary to the above bladder abnormality, although other etiologies are not excludable. Mildly elevated transplant kidney resistive indices. This is nonspecific, can be seen in uropathy, but can also be seen in acute or chronic rejection, acute tubular necrosis, among other possibilities Subjective ROS Limited/Unobtainable: No Constitutional: Reports: malaise Objective Objective Last 24 Hour Vital Signs Date Time Temp Pulse Resp B/P (MAP) Pulse Ox O2 Delivery O2 Flow Rate FiO2 06/06/17 08:55 71 108/49 06/06/17 08:55 71 108/49 06/06/17 08:15 98.3 71 21 108/49 94 Room Air 06/06/17 08:13 74 18 Room Air 06/06/17 06:09 139/75 06/06/17 04:00 97.9 77 21 139/75 97 Room Air 06/06/17 00:02 98.2 82 20 142/73 96 Room Air 06/05/17 23:52 63 18 Room Air 06/05/17 21:37 144/83 06/05/17 21:08 88 144/74 06/05/17 20:00 98.4 88 20 144/74 95 Room Air 06/05/17 18:21 74 150/75 06/05/17 16:00 98.9 74 20 150/75 97 Room Air 06/05/17 13:42 124/64 06/05/17 12:01 99.5 78 20 155/78 96 Room Air Intake and Output 06/06/17 06/07/17 19:00 07:00 Intake Total 240 ml Balance 240 ml Intake Oral 240 ml Laboratory Tests 06/05/17 12:20: Urine Color Pale yellow, Urine Appearance Slightly cloudy, Urine pH 8, Urine Specific [place] 1.010, Urine Protein 2+H, Urine Glucose (UA) 4+H, Urine Ketones Negative, Urine Occult Blood 5+H, Urine Nitrite Negative, Urine Bilirubin Negative, Urine Urobilinogen Normal, Urine Leukocyte Esterase 3+H, Urine RBC TntcH, Urine WBC 5-10H, Urine Squamous Epithelial Cells Occasional, Urine Bacteria Occasional 06/06/17 05:30: White Blood Count 5.6, Red Blood Count 2.36L, Hemoglobin 8.0L, Hematocrit 23.9L , Mean Corpuscular Volume 101H, Mean Corpuscular Hemoglobin 33.8H, Mean Corpuscular Hemoglobin Concent 33.3, Red Cell Distribution Width 13.7, Platelet Count 206, Mean Platelet Volume 6.7, Neutrophils (%) (Auto) 61.2, Lymphocytes (% ) (Auto) 23.7, Monocytes (%) (Auto) 9.8, Eosinophils (%) (Auto) 4.3H, Basophils (%) (Auto) 1.1, Erythrocyte Sedimentation Rate 87H, Sodium Level 139, Potassium Level 4.2, Chloride Level 109H, Carbon Dioxide Level 17L, Anion Gap 13, Blood Urea Nitrogen 71H, Creatinine 5.1H, Estimat Glomerular Filtration Rate 11.5, Glucose Level 137#H, Calcium Level 8.3L, Phosphorus Level 3.9, Magnesium Level 1.5L, Total Bilirubin 0.4, Aspartate Amino Transf (AST/SGOT) 14L, Alanine Aminotransferase (ALT/SGPT) 10L, Alkaline Phosphatase 82, Total Protein 5.7L, Albumin 2.3L, Globulin 3.4, Albumin/Globulin Ratio 0.7L Height (Feet): 5 Height (Inches): 10.00 Weight (Pounds): 200 General Appearance: no apparent distress Respiratory/Chest: lungs clear Abdomen: soft Genitourinary/Rectal: other - hernandez in- urine clear Objective no change BERT ALONSO Jun 06, 2017 11:11
[2017-06-06 12:02] VITALS: BP_SYST 123; BP_SYST 150; BP_DIAS 57; BP_DIAS 97
[2017-06-06] MEDS: Ertapenem 500mg ivpb (q24h) IV SCH ×2 (13:46)
--- NOTE | 2017-06-06 14:14 | Internal Med Progress Note ---
Subjective Date of Service: Jun 06, 2017 Physician Name Dee Maher Attending Physician Christopher Rosado MD Current Medications Medications (Trade) Dose Ordered Sig/Dunia Route PRN Reason Start Time Stop Time Status Last Admin Dose Admin Acetaminophen (Tylenol) 650 mg Q4H PRN ORAL fever 05/31/17 11:15 06/30/17 11:14 Amlodipine Besylate (Norvasc) 5 mg BID ORAL 06/06/17 18:00 07/06/17 17:59 Aspirin (ASA) 81 mg DAILY ORAL 06/01/17 09:00 07/01/17 08:59 06/04/17 08:09 Atorvastatin Calcium (Lipitor) 10 mg BEDTIME ORAL 05/31/17 21:00 06/30/17 20:59 06/05/17 21:08 Chlorhexidine Gluconate (Eloisa-Hex 2%) 1 applic DAILY@1999 TOPIC 05/31/17 20:00 06/30/17 19:59 06/05/17 21:08 Dextrose (Dextrose 50%) STAT PRN IV Hypoglycemia 05/31/17 11:15 06/30/17 11:14 Docusate Sodium (Colace) 100 mg THREE TIMES A DAY ORAL 05/31/17 18:00 06/30/17 17:59 06/06/17 13:46 Duloxetine HCl (Cymbalta) 30 mg DAILY ORAL 06/02/17 09:00 07/02/17 08:59 06/06/17 09:40 Epoetin Jose (Procrit (for non ESRD use)) 10,000 units WED-WED-WED SUBQ 06/02/17 21:00 07/02/17 20:59 06/04/17 20:59 Ertapenem 0.5 gm/ Sodium Chloride 55 ml @ 110 mls/hr Q24H IV 06/06/17 13:00 06/11/17 12:59 06/06/17 13:46 Finasteride (Proscar) 5 mg DAILY ORAL 06/04/17 10:00 07/04/17 09:59 06/06/17 09:40 Heparin Sodium (Porcine) (Heparin 5000 units/ml) 5,000 units EVERY 12 HOURS SUBQ 05/31/17 21:00 06/30/17 20:59 06/05/17 21:12 Hydralazine HCl (Apresoline) 25 mg Q4H PRN ORAL bp of 160 syst and above 05/31/17 14:45 06/30/17 14:44 06/02/17 12:08 Hydralazine HCl (Apresoline) 25 mg Q8HR ORAL 06/06/17 14:00 07/06/17 13:59 06/06/17 13:51 Insulin Aspart (NovoLOG) BEFORE MEALS AND HS SUBQ 05/31/17 11:30 06/30/17 11:29 06/06/17 06:11 Insulin Aspart (NovoLOG) 8 units NOVOTIAC SUBQ 06/05/17 11:50 07/05/17 11:49 06/05/17 11:37 Insulin Detemir (Levemir) 12 units BID@0900,2100 SUBQ 06/05/17 09:00 07/05/17 08:59 06/06/17 09:41 Lansoprazole (Prevacid) 30 mg DAILY ORAL 05/31/17 15:00 06/30/17 14:59 06/06/17 09:40 Linezolid 300 ml @ 300 mls/hr Q12HR IVPB 06/06/17 12:00 06/13/17 11:59 06/06/17 12:18 Metoprolol Tartrate (Lopressor) 50 mg Q12HR ORAL 05/31/17 12:00 06/30/17 11:59 06/05/17 21:08 Morphine Sulfate (Morphine Sulfate) 1 mg Q4H PRN IVP For Pain 05/31/17 11:15 06/07/17 11:14 06/01/17 04:20 Ondansetron HCl (Zofran) 4 mg Q6H PRN IVP Nausea & Vomiting 05/31/17 11:15 06/30/17 11:14 Polyethylene Glycol (Miralax) 17 gm HSPRN PRN ORAL Constipation 05/31/17 11:15 06/30/17 11:14 Sodium Chloride 1,000 ml @ 75 mls/hr [id number] IV 06/01/17 11:45 07/01/17 11:44 06/06/17 12:19 Tamsulosin HCl (Flomax) 0.4 mg BID ORAL 05/31/17 18:00 06/30/17 17:59 06/06/17 09:40 Zolpidem Tartrate (Ambien) 5 mg HSPRN PRN ORAL Insomnia 05/31/17 11:15 06/07/17 11:14 Allergies: Coded Allergies: CEFEPIME (Verified Allergy, Intermediate, Rash, 01/23/13) ROS Limited/Unobtainable: No Constitutional: Reports: no symptoms HEENT: Reports: no symptoms Cardiovascular: Reports: no symptoms Respiratory: Reports: no symptoms Gastrointestinal/Abdominal: Reports: no symptoms Genitourinary: Reports: other - urine retention Neurologic/Psychiatric: Reports: no symptoms Subjective 62 YO M admitted with hematuria. Cover for Int Med - Dr Rosado. Discharge held yesterday due to urinary retention. Objective Last Vital Signs Date Time Temp Pulse Resp B/P (MAP) Pulse Ox O2 Delivery O2 Flow Rate FiO2 06/06/17 13:51 138/74 06/06/17 12:02 97.4 77 19 99 Room Air 06/06/17 08:13 21 Laboratory Tests Test 06/06/17 05:30 White Blood Count 5.6 K/UL (4.8-10.8) Red Blood Count 2.36 M/UL (4.70-6.10) L Hemoglobin 8.0 G/DL (14.2-18.0) L Hematocrit 23.9 % (42.0-52.0) L Mean Corpuscular Volume 101 FL (80-99) H Mean Corpuscular Hemoglobin 33.8 PG (27.0-31.0) H Mean Corpuscular Hemoglobin Concent 33.3 G/DL (32.0-36.0) Red Cell Distribution Width 13.7 % (11.6-14.8) Platelet Count 206 K/UL (150-450) Mean Platelet Volume 6.7 FL (6.5-10.1) Neutrophils (%) (Auto) 61.2 % (45.0-75.0) Lymphocytes (%) (Auto) 23.7 % (20.0-45.0) Monocytes (%) (Auto) 9.8 % (1.0-10.0) Eosinophils (%) (Auto) 4.3 % (0.0-3.0) H Basophils (%) (Auto) 1.1 % (0.0-2.0) Erythrocyte Sedimentation Rate 87 MM/HR (0-20) H Sodium Level 139 MMOL/L (136-145) Potassium Level 4.2 MMOL/L (3.5-5.1) Chloride Level 109 MMOL/L (98-107) H Carbon Dioxide Level 17 MMOL/L (21-32) L Anion Gap 13 mmol/L (5-15) Blood Urea Nitrogen 71 mg/dL (7-18) H Creatinine 5.1 MG/DL (0.55-1.30) H Estimat Glomerular Filtration Rate 11.5 mL/min (>60) Glucose Level 137 MG/DL (74-106) #H Calcium Level 8.3 MG/DL (8.5-10.1) L Phosphorus Level 3.9 MG/DL (2.5-4.9) Magnesium Level 1.5 MG/DL (1.8-2.4) L Total Bilirubin 0.4 MG/DL (0.2-1.0) Aspartate Amino Transf (AST/SGOT) 14 U/L (15-37) L Alanine Aminotransferase (ALT/SGPT) 10 U/L (12-78) L Alkaline Phosphatase 82 U/L (46-116) Total Protein 5.7 G/DL (6.4-8.2) L Albumin 2.3 G/DL (3.4-5.0) L Globulin 3.4 g/dL Albumin/Globulin Ratio 0.7 (1.0-2.7) L Microbiology Date/Time Source Procedure Growth Status 06/05/17 17:30 Blood Blood Culture - Preliminary Resulted 06/05/17 12:20 Urine,Ureter/Kidney Urine Culture - Preliminary NO GROWTH Resulted Intake and Output 06/06/17 06/07/17 19:00 07:00 Intake Total 565 ml Balance 565 ml Intake Oral 240 ml IV Total 325 ml Objective General Appearance: WD/WN, no apparent distress, alert EENT: PERRL/EOMI, normal ENT inspection, TMs normal Neck: non-tender, normal alignment, supple, normal inspection Cardiovascular: normal peripheral pulses, normal rate, regular rhythm, no gallop/murmur, no JVD Respiratory/Chest: chest wall non-tender, lungs clear, normal breath sounds, no respiratory distress, no accessory muscle use Abdomen: normal bowel sounds, non tender, soft, no organomegaly, no mass 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 (5) CAD (coronary artery disease) (6) Acute on chronic renal failure Assessment & Plan: See nephrology note. Await renal ultrasound. (7) Anemia in chronic kidney disease (8) DM (diabetes mellitus) Assessment & Plan: Hypoglycemic this am. Continue novolog sliding scale. See endocrinology note. (9) History of simultaneous kidney and pancreas transplant (10) BPH (benign prostatic hyperplasia) Assessment & Plan: continue flomax (11) Gastritis Assessment & Plan: Continue prevacid (12) Hypercholesteremia Assessment & Plan: Continue lipitor (13) Hematuria Assessment & Plan: Await urology consult as R/O bladder cancer. (14) Retention, urine Assessment & Plan: Continue hernandez cath-see urology note. Status: progressing DEE MAHER Jun 06, 2017 14:14
--- NOTE | 2017-06-06 14:27 | Pulmonology Progress Note ---
Assessment/Plan Problems: (1) Hematuria (2) Pulmonary HTN (3) Anemia in chronic kidney disease (4) CAD (coronary artery disease) (5) HTN (hypertension) (6) DM (diabetes mellitus) Assessment/Plan BS better now US of renal reviewed adjust insulin no new complains H/H stable IV fluids check electrolytes monitor BP sliding scale.continue Levemir 12 units bid continue Novolog 8 units ac tid + SSI Subjective ROS Limited/Unobtainable: No Constitutional: Reports: no symptoms HEENT: Repors: no symptoms Respiratory: Reports: no symptoms Allergies: Coded Allergies: CEFEPIME (Verified Allergy, Intermediate, Rash, 01/23/13) Objective Last 24 Hour Vital Signs Date Time Temp Pulse Resp B/P (MAP) Pulse Ox O2 Delivery O2 Flow Rate FiO2 06/06/17 13:51 138/74 06/06/17 12:02 97.4 77 19 123/57 99 Room Air 06/06/17 08:55 71 108/49 06/06/17 08:55 71 108/49 06/06/17 08:15 98.3 71 21 108/49 94 Room Air 06/06/17 08:13 74 18 Room Air 21 06/06/17 06:09 139/75 06/06/17 04:00 97.9 77 21 139/75 97 Room Air 06/06/17 00:02 98.2 82 20 142/73 96 Room Air 06/05/17 23:52 63 18 Room Air 21 06/05/17 21:37 144/83 06/05/17 21:08 88 144/74 06/05/17 20:00 98.4 88 20 144/74 95 Room Air 06/05/17 18:21 74 150/75 06/05/17 16:00 98.9 74 20 150/75 97 Room Air Intake and Output 06/06/17 06/07/17 19:00 07:00 Intake Total 920 ml Balance 920 ml Intake Oral 240 ml IV Total 680 ml Objective General Appearance: WD/WN HEENT: normocephalic, anicteric Cardiovascular: normal peripheral pulses, normal rate Abdomen: normal bowel sounds, no organomegaly Genitourinary: normal external genitalia Extremities: no clubbing Skin: no lesions Lymphatic: no neck adenopathy Microbiology Date/Time Source Procedure Growth Status 06/05/17 17:30 Blood Blood Culture - Preliminary Resulted 06/05/17 12:20 Urine,Ureter/Kidney Urine Culture - Preliminary NO GROWTH Resulted Laboratory Tests 06/06/17 05:30: White Blood Count 5.6, Red Blood Count 2.36L, Hemoglobin 8.0L, Hematocrit 23.9L , Mean Corpuscular Volume 101H, Mean Corpuscular Hemoglobin 33.8H, Mean Corpuscular Hemoglobin Concent 33.3, Red Cell Distribution Width 13.7, Platelet Count 206, Mean Platelet Volume 6.7, Neutrophils (%) (Auto) 61.2, Lymphocytes (% ) (Auto) 23.7, Monocytes (%) (Auto) 9.8, Eosinophils (%) (Auto) 4.3H, Basophils (%) (Auto) 1.1, Erythrocyte Sedimentation Rate 87H, Sodium Level 139, Potassium Level 4.2, Chloride Level 109H, Carbon Dioxide Level 17L, Anion Gap 13, Blood Urea Nitrogen 71H, Creatinine 5.1H, Estimat Glomerular Filtration Rate 11.5, Glucose Level 137#H, Calcium Level 8.3L, Phosphorus Level 3.9, Magnesium Level 1.5L, Total Bilirubin 0.4, Aspartate Amino Transf (AST/SGOT) 14L, Alanine Aminotransferase (ALT/SGPT) 10L, Alkaline Phosphatase 82, Total Protein 5.7L, Albumin 2.3L, Globulin 3.4, Albumin/Globulin Ratio 0.7L Current Medications Medications (Trade) Dose Ordered Sig/Dunia Route PRN Reason Start Time Stop Time Status Last Admin Dose Admin Acetaminophen (Tylenol) 650 mg Q4H PRN ORAL fever 05/31/17 11:15 06/30/17 11:14 Amlodipine Besylate (Norvasc) 5 mg BID ORAL 06/06/17 18:00 07/06/17 17:59 Aspirin (ASA) 81 mg DAILY ORAL 06/01/17 09:00 07/01/17 08:59 06/04/17 08:09 Atorvastatin Calcium (Lipitor) 10 mg BEDTIME ORAL 05/31/17 21:00 06/30/17 20:59 06/05/17 21:08 Chlorhexidine Gluconate (Eloisa-Hex 2%) 1 applic DAILY@1999 TOPIC 05/31/17 20:00 06/30/17 19:59 06/05/17 21:08 Dextrose (Dextrose 50%) STAT PRN IV Hypoglycemia 05/31/17 11:15 06/30/17 11:14 Docusate Sodium (Colace) 100 mg THREE TIMES A DAY ORAL 05/31/17 18:00 06/30/17 17:59 06/06/17 13:46 Duloxetine HCl (Cymbalta) 30 mg DAILY ORAL 06/02/17 09:00 07/02/17 08:59 06/06/17 09:40 Epoetin Jose (Procrit (for non ESRD use)) 10,000 units WED-WED-WED SUBQ 06/02/17 21:00 07/02/17 20:59 06/04/17 20:59 Ertapenem 0.5 gm/ Sodium Chloride 55 ml @ 110 mls/hr Q24H IV 06/06/17 13:00 06/11/17 12:59 06/06/17 13:46 Finasteride (Proscar) 5 mg DAILY ORAL 06/04/17 10:00 07/04/17 09:59 06/06/17 09:40 Heparin Sodium (Porcine) (Heparin 5000 units/ml) 5,000 units EVERY 12 HOURS SUBQ 05/31/17 21:00 06/30/17 20:59 06/05/17 21:12 Hydralazine HCl (Apresoline) 25 mg Q4H PRN ORAL bp of 160 syst and above 05/31/17 14:45 06/30/17 14:44 06/02/17 12:08 Hydralazine HCl (Apresoline) 25 mg Q8HR ORAL 06/06/17 14:00 07/06/17 13:59 06/06/17 13:51 Insulin Aspart (NovoLOG) BEFORE MEALS AND HS SUBQ 05/31/17 11:30 06/30/17 11:29 06/06/17 06:11 Insulin Aspart (NovoLOG) 8 units NOVOTIAC SUBQ 06/05/17 11:50 07/05/17 11:49 06/05/17 11:37 Insulin Detemir (Levemir) 12 units BID@0900,2100 SUBQ 06/05/17 09:00 07/05/17 08:59 06/06/17 09:41 Lansoprazole (Prevacid) 30 mg DAILY ORAL 05/31/17 15:00 06/30/17 14:59 06/06/17 09:40 Linezolid 300 ml @ 300 mls/hr Q12HR IVPB 06/06/17 12:00 06/13/17 11:59 06/06/17 12:18 Metoprolol Tartrate (Lopressor) 50 mg Q12HR ORAL 05/31/17 12:00 06/30/17 11:59 06/05/17 21:08 Morphine Sulfate (Morphine Sulfate) 1 mg Q4H PRN IVP For Pain 05/31/17 11:15 06/07/17 11:14 06/01/17 04:20 Ondansetron HCl (Zofran) 4 mg Q6H PRN IVP Nausea & Vomiting 05/31/17 11:15 06/30/17 11:14 Polyethylene Glycol (Miralax) 17 gm HSPRN PRN ORAL Constipation 05/31/17 11:15 06/30/17 11:14 Sodium Chloride 1,000 ml @ 75 mls/hr [id number] IV 06/01/17 11:45 07/01/17 11:44 06/06/17 12:19 Tamsulosin HCl (Flomax) 0.4 mg BID ORAL 05/31/17 18:00 06/30/17 17:59 06/06/17 09:40 Zolpidem Tartrate (Ambien) 5 mg HSPRN PRN ORAL Insomnia 05/31/17 11:15 06/07/17 11:14 MARGO GALLEGOS Jun 06, 2017 14:26
--- NOTE | 2017-06-06 15:13 | Infectious Diseases Prog Note ---
Assessment/Plan Problems: (1) Sepsis Assessment & Plan: with gram positive cocci in chains, suspect streptococcus VS enterococcus Spp , source suspect or GI , will add zyvox, and continue ertapenem empirically (2) UTI (urinary tract infection) Assessment & Plan: due to retention, await urine culture and continue ertapenem. (3) Hematuria Assessment & Plan: suspect due to enlarged prostate, S/P hernandez catheter placement , urology is following (4) History of simultaneous kidney and pancreas transplant Assessment & Plan: S/P rejection , may need HD since he is becoming uremic (5) DKA (diabetic ketoacidoses) Assessment & Plan: recommend tight glycemic control to keep premeals less than 130, and post prandial less than 180 (6) CKD (chronic kidney disease), stage III Assessment & Plan: continue hydration , monitor UOP, may require HD if continue to retain fluids , renal is following (7) urinary retention Assessment & Plan: S/P hernandez catheter Subjective Constitutional: Reports: no symptoms HEENT: Reports: no symptoms Respiratory: Reports: no symptoms Breasts: Reports: no symptoms Cardiovascular: Reports: no symptoms Gastrointestinal/Abdominal: Reports: no symptoms Genitourinary: Reports: no symptoms Neurologic: Reports: no symptoms Psychiatric: Reports: no symptoms Skin: Reports: no symptoms Endocrine: Reports: no symptoms Hematologic: Reports: no symptoms Musculoskeletal: Reports: no symptoms Allergies: Coded Allergies: CEFEPIME (Verified Allergy, Intermediate, Rash, 01/23/13) Objective Vital Signs Last 24 Hour Vital Signs Date Time Temp Pulse Resp B/P (MAP) Pulse Ox O2 Delivery O2 Flow Rate FiO2 06/06/17 13:51 138/74 06/06/17 12:02 97.4 77 19 123/57 99 Room Air 06/06/17 08:55 71 108/49 06/06/17 08:55 71 108/49 06/06/17 08:15 98.3 71 21 108/49 94 Room Air 06/06/17 08:13 74 18 Room Air 06/06/17 06:09 139/75 06/06/17 04:00 97.9 77 21 139/75 97 Room Air 06/06/17 00:02 98.2 82 20 142/73 96 Room Air 06/05/17 23:52 63 18 Room Air 06/05/17 21:37 144/83 06/05/17 21:08 88 144/74 06/05/17 20:00 98.4 88 20 144/74 95 Room Air 06/05/17 18:21 74 150/75 06/05/17 16:00 98.9 74 20 150/75 97 Room Air Height (Feet): 5 Height (Inches): 10.00 Weight (Pounds): 200 General Appearance: WD/WN, no acute distress HEENT: normocephalic, atraumatic, anicteric, mucous membranes moist, PERRL, EOMI, pharynx normal, supple, no JVD Respiratory/Chest: chest wall non-tender, lungs clear, normal breath sounds, no respiratory distress, no accessory muscle use Cardiovascular: normal peripheral pulses, normal rate, regular rhythm, no gallop/murmur, no JVD Abdomen: normal bowel sounds, soft, non tender, no organomegaly, non distended , no mass Extremities: no cyanosis, no clubbing Skin: no rash, no lesions, no ulcers Neurologic/Psychiatric: alert, oriented x 3 Lymphatic: no neck adenopathy, no groin adenopathy Microbiology Date/Time Source Procedure Growth Status 06/05/17 17:30 Blood Blood Culture - Preliminary Resulted 06/05/17 12:20 Urine,Ureter/Kidney Urine Culture - Preliminary NO GROWTH Resulted Laboratory Tests Test 06/06/17 05:30 White Blood Count 5.6 K/UL (4.8-10.8) Red Blood Count 2.36 M/UL (4.70-6.10) L Hemoglobin 8.0 G/DL (14.2-18.0) L Hematocrit 23.9 % (42.0-52.0) L Mean Corpuscular Volume 101 FL (80-99) H Mean Corpuscular Hemoglobin 33.8 PG (27.0-31.0) H Mean Corpuscular Hemoglobin Concent 33.3 G/DL (32.0-36.0) Red Cell Distribution Width 13.7 % (11.6-14.8) Platelet Count 206 K/UL (150-450) Mean Platelet Volume 6.7 FL (6.5-10.1) Neutrophils (%) (Auto) 61.2 % (45.0-75.0) Lymphocytes (%) (Auto) 23.7 % (20.0-45.0) Monocytes (%) (Auto) 9.8 % (1.0-10.0) Eosinophils (%) (Auto) 4.3 % (0.0-3.0) H Basophils (%) (Auto) 1.1 % (0.0-2.0) Erythrocyte Sedimentation Rate 87 MM/HR (0-20) H Sodium Level 139 MMOL/L (136-145) Potassium Level 4.2 MMOL/L (3.5-5.1) Chloride Level 109 MMOL/L (98-107) H Carbon Dioxide Level 17 MMOL/L (21-32) L Anion Gap 13 mmol/L (5-15) Blood Urea Nitrogen 71 mg/dL (7-18) H Creatinine 5.1 MG/DL (0.55-1.30) H Estimat Glomerular Filtration Rate 11.5 mL/min (>60) Glucose Level 137 MG/DL (74-106) #H Calcium Level 8.3 MG/DL (8.5-10.1) L Phosphorus Level 3.9 MG/DL (2.5-4.9) Magnesium Level 1.5 MG/DL (1.8-2.4) L Total Bilirubin 0.4 MG/DL (0.2-1.0) Aspartate Amino Transf (AST/SGOT) 14 U/L (15-37) L Alanine Aminotransferase (ALT/SGPT) 10 U/L (12-78) L Alkaline Phosphatase 82 U/L (46-116) Total Protein 5.7 G/DL (6.4-8.2) L Albumin 2.3 G/DL (3.4-5.0) L Globulin 3.4 g/dL Albumin/Globulin Ratio 0.7 (1.0-2.7) L Current Medications Medications (Trade) Dose Ordered Sig/Dunia Route PRN Reason Start Time Stop Time Status Last Admin Dose Admin Acetaminophen (Tylenol) 650 mg Q4H PRN ORAL fever 05/31/17 11:15 06/30/17 11:14 Amlodipine Besylate (Norvasc) 5 mg BID ORAL 06/06/17 18:00 07/06/17 17:59 Aspirin (ASA) 81 mg DAILY ORAL 06/01/17 09:00 07/01/17 08:59 06/04/17 08:09 Atorvastatin Calcium (Lipitor) 10 mg BEDTIME ORAL 05/31/17 21:00 06/30/17 20:59 06/05/17 21:08 Chlorhexidine Gluconate (Eloisa-Hex 2%) 1 applic DAILY@2000 TOPIC 05/31/17 20:00 06/30/17 19:59 06/05/17 21:08 Dextrose (Dextrose 50%) STAT PRN IV Hypoglycemia 05/31/17 11:15 06/30/17 11:14 Docusate Sodium (Colace) 100 mg THREE TIMES A DAY ORAL 05/31/17 18:00 06/30/17 17:59 06/06/17 13:46 Duloxetine HCl (Cymbalta) 30 mg DAILY ORAL 06/02/17 09:00 07/02/17 08:59 06/06/17 09:40 Epoetin Jose (Procrit (for non ESRD use)) 10,000 units WED-WED-WED SUBQ 06/02/17 21:00 07/02/17 20:59 06/04/17 20:59 Ertapenem 0.5 gm/ Sodium Chloride 55 ml @ 110 mls/hr Q24H IV 06/06/17 13:00 06/11/17 12:59 06/06/17 13:46 Finasteride (Proscar) 5 mg DAILY ORAL 06/04/17 10:00 07/04/17 09:59 06/06/17 09:40 Heparin Sodium (Porcine) (Heparin 5000 units/ml) 5,000 units EVERY 12 HOURS SUBQ 05/31/17 21:00 06/30/17 20:59 06/05/17 21:12 Hydralazine HCl (Apresoline) 25 mg Q4H PRN ORAL bp of 160 syst and above 05/31/17 14:45 06/30/17 14:44 06/02/17 12:08 Hydralazine HCl (Apresoline) 25 mg Q8HR ORAL 06/06/17 14:00 07/06/17 13:59 06/06/17 13:51 Insulin Aspart (NovoLOG) BEFORE MEALS AND HS SUBQ 05/31/17 11:30 06/30/17 11:29 06/06/17 06:11 Insulin Aspart (NovoLOG) 8 units NOVOTIAC SUBQ 06/05/17 11:50 07/05/17 11:49 06/05/17 11:37 Insulin Detemir (Levemir) 12 units BID@0900,2100 SUBQ 06/05/17 09:00 07/05/17 08:59 06/06/17 09:41 Lansoprazole (Prevacid) 30 mg DAILY ORAL 05/31/17 15:00 06/30/17 14:59 06/06/17 09:40 Linezolid 300 ml @ 300 mls/hr Q12HR IVPB 06/06/17 12:00 06/13/17 11:59 06/06/17 12:18 Metoprolol Tartrate (Lopressor) 50 mg Q12HR ORAL 05/31/17 12:00 06/30/17 11:59 06/05/17 21:08 Morphine Sulfate (Morphine Sulfate) 1 mg Q4H PRN IVP For Pain 05/31/17 11:15 06/07/17 11:14 06/01/17 04:20 Ondansetron HCl (Zofran) 4 mg Q6H PRN IVP Nausea & Vomiting 05/31/17 11:15 06/30/17 11:14 Polyethylene Glycol (Miralax) 17 gm HSPRN PRN ORAL Constipation 05/31/17 11:15 06/30/17 11:14 Sodium Chloride 1,000 ml @ 75 mls/hr [id number] IV 06/01/17 11:45 07/01/17 11:44 06/06/17 12:19 Tamsulosin HCl (Flomax) 0.4 mg BID ORAL 05/31/17 18:00 06/30/17 17:59 06/06/17 09:40 Zolpidem Tartrate (Ambien) 5 mg HSPRN PRN ORAL Insomnia 05/31/17 11:15 06/07/17 11:14 Josue Mcpherson M.D. Jun 06, 2017 15:13
[2017-06-06 16:13] VITALS: BP 127/58
[2017-06-06 20:00] VITALS: BP 117/61
--- NOTE | 2017-06-06 21:00 | Progress Note ---
DATE: 06/06/2017 SUBJECTIVE: The patient is lying in bed comfortably. Cline catheter is in place. Urine is grossly cleared up. OBJECTIVE: VITAL SIGNS: Include temperature 98.7 degrees, blood pressure 108/49. ABDOMEN: Soft and nontender. Cline catheter is in place. LABORATORY VALUES: White blood cell count 5.6, hemoglobin 8.0. Sodium 139, potassium 4.2, BUN 71, creatinine 5.1. ASSESSMENT: The patient has been in urinary retention. 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 RECOMMENDATION: Continue Cline catheter for decompression of the bladder, should alleviate the bleeding. If further bleeding occurs, imaging would be indicated. Cline catheter should remain in place for now, however, he should urinate better when it is removed after dilation of the urethral meatus. Please call with any further concerns on this patient and we will see him back as needed. Deon Lance DR: Ania JOB#: [id number] CC:
[2017-06-06] MEDS: Dyna-Hex 2% Top Sol 2oz TOPIC SCH (21:30)
[2017-06-07] VITALS: BP 115/67
[2017-06-07 04:11] VITALS: BP 119/63
[2017-06-07] MEDS: HydrALAZINE 25mg tab ORAL SCH ×2 (06:00→13:54)
[2017-06-07] MEDS: NovoLOG Insulin Flexpen SUBQ SCH ×4 (06:17→11:50)
--- NOTE | 2017-06-07 07:05 | General Progress Note ---
Assessment/Plan Problem List: (1) Hematuria ICD Codes: R31.9 - Hematuria SNOMED: 24771924 (2) CKD (chronic kidney disease), stage III ICD Codes: N18.3 - CKD (chronic kidney disease), stage III SNOMED: 084416176 (3) Anemia in chronic kidney disease ICD Codes: D63.1 - Anemia in chronic kidney disease; N03.9 - Anemia in chronic kidney disease SNOMED: 152949075 (4) Hypoparathyroidism ICD Codes: E20.9 - Hypoparathyroidism, unspecified SNOMED: 65962662 (5) DM (diabetes mellitus) ICD Codes: E11.9 - DM (diabetes mellitus) SNOMED: 18950736 Assessment/Plan fasting glucose improving continue Levemir 12 units bid continue Novolog 8 units ac tid + SSI Subjective ROS Limited/Unobtainable: Yes Allergies: Coded Allergies: CEFEPIME (Verified Allergy, Intermediate, Rash, 01/23/13) Subjective events noted Objective Last 24 Hour Vital Signs Date Time Temp Pulse Resp B/P (MAP) Pulse Ox O2 Delivery O2 Flow Rate FiO2 06/07/17 06:00 119/63 06/07/17 04:11 97.8 70 20 119/63 96 Room Air 06/07/17 00:00 98.2 79 21 115/67 96 Room Air 06/06/17 21:31 117/61 06/06/17 21:31 86 117/61 06/06/17 21:25 68 18 Room Air 21 06/06/17 20:00 98.6 86 20 117/61 96 Room Air 06/06/17 17:36 102 127/58 06/06/17 16:13 98.0 102 20 127/58 97 Room Air 06/06/17 13:51 138/74 06/06/17 12:02 97.4 77 19 123/57 99 Room Air 06/06/17 08:55 71 108/49 06/06/17 08:55 71 108/49 06/06/17 08:15 98.3 71 21 108/49 94 Room Air 06/06/17 08:13 74 18 Room Air 21 Laboratory Tests 06/07/17 05:15: White Blood Count [Pending], Red Blood Count [Pending], Hemoglobin [Pending], Hematocrit [Pending], Mean Corpuscular Volume [Pending], Mean Corpuscular Hemoglobin [Pending], Mean Corpuscular Hemoglobin Concent [Pending], Red Cell Distribution Width [Pending], Platelet Count [Pending], Mean Platelet Volume [ Pending], Neutrophils (%) (Auto) [Pending], Lymphocytes (%) (Auto) [Pending], Monocytes (%) (Auto) [Pending], Eosinophils (%) (Auto) [Pending], Basophils (%) (Auto) [Pending], Sodium Level [Pending], Potassium Level [Pending], Chloride Level [Pending], Carbon Dioxide Level [Pending], Blood Urea Nitrogen [Pending], Creatinine [Pending], Estimat Glomerular Filtration Rate [Pending], Glucose Level [Pending], Uric Acid [Pending], Calcium Level [Pending], Phosphorus Level [Pending], Magnesium Level [Pending], Total Bilirubin [Pending], Aspartate Amino Transf (AST/SGOT) [Pending], Alanine Aminotransferase (ALT/SGPT) [Pending] , Alkaline Phosphatase [Pending], Total Protein [Pending], Albumin [Pending], Globulin [Pending] Height (Feet): 5 Height (Inches): 10.00 Weight (Pounds): 200 General Appearance: no apparent distress Neck: normal alignment Cardiovascular: normal rate Respiratory/Chest: lungs clear Abdomen: normal bowel sounds Objective Current Medications Medications (Trade) Dose Ordered Sig/Dunia Route PRN Reason Start Time Stop Time Status Last Admin Dose Admin Acetaminophen (Tylenol) 650 mg Q4H PRN ORAL fever 05/31/17 11:15 06/30/17 11:14 Amlodipine Besylate (Norvasc) 5 mg BID ORAL 06/06/17 18:00 07/06/17 17:59 06/06/17 17:36 Aspirin (ASA) 81 mg DAILY ORAL 06/01/17 09:00 07/01/17 08:59 06/04/17 08:09 Atorvastatin Calcium (Lipitor) 10 mg BEDTIME ORAL 05/31/17 21:00 06/30/17 20:59 06/06/17 21:31 Chlorhexidine Gluconate (Eloisa-Hex 2%) 1 applic DAILY@1999 TOPIC 05/31/17 20:00 06/30/17 19:59 06/06/17 21:30 Dextrose (Dextrose 50%) STAT PRN IV Hypoglycemia 05/31/17 11:15 06/30/17 11:14 Docusate Sodium (Colace) 100 mg THREE TIMES A DAY ORAL 05/31/17 18:00 06/30/17 17:59 06/06/17 17:36 Duloxetine HCl (Cymbalta) 30 mg DAILY ORAL 06/02/17 09:00 07/02/17 08:59 06/06/17 09:40 Epoetin Jose (Procrit (for non ESRD use)) 10,000 units WED-WED-WED SUBQ 06/02/17 21:00 07/02/17 20:59 06/04/17 20:59 Ertapenem 0.5 gm/ Sodium Chloride 55 ml @ 110 mls/hr Q24H IV 06/06/17 13:00 06/11/17 12:59 06/06/17 13:46 Finasteride (Proscar) 5 mg DAILY ORAL 06/04/17 10:00 07/04/17 09:59 06/06/17 09:40 Heparin Sodium (Porcine) (Heparin 5000 units/ml) 5,000 units EVERY 12 HOURS SUBQ 05/31/17 21:00 06/30/17 20:59 06/06/17 21:33 Hydralazine HCl (Apresoline) 25 mg Q4H PRN ORAL bp of 160 syst and above 05/31/17 14:45 06/30/17 14:44 06/02/17 12:08 Hydralazine HCl (Apresoline) 25 mg Q8HR ORAL 06/06/17 14:00 07/06/17 13:59 06/06/17 13:51 Insulin Aspart (NovoLOG) BEFORE MEALS AND HS SUBQ 05/31/17 11:30 06/30/17 11:29 06/06/17 21:34 Insulin Aspart (NovoLOG) 8 units NOVOTIAC SUBQ 06/05/17 11:50 07/05/17 11:49 06/07/17 06:19 Insulin Detemir (Levemir) 12 units BID@0900,2100 SUBQ 06/05/17 09:00 07/05/17 08:59 06/06/17 21:33 Lansoprazole (Prevacid) 30 mg DAILY ORAL 05/31/17 15:00 06/30/17 14:59 06/06/17 09:40 Linezolid 300 ml @ 300 mls/hr Q12HR IVPB 06/06/17 12:00 06/13/17 11:59 06/06/17 21:30 Metoprolol Tartrate (Lopressor) 50 mg Q12HR ORAL 05/31/17 12:00 06/30/17 11:59 06/06/17 21:31 Morphine Sulfate (Morphine Sulfate) 1 mg Q4H PRN IVP For Pain 05/31/17 11:15 06/07/17 11:14 06/01/17 04:20 Ondansetron HCl (Zofran) 4 mg Q6H PRN IVP Nausea & Vomiting 05/31/17 11:15 06/30/17 11:14 Polyethylene Glycol (Miralax) 17 gm HSPRN PRN ORAL Constipation 05/31/17 11:15 06/30/17 11:14 Sodium Chloride 1,000 ml @ 75 mls/hr [id number] IV 06/01/17 11:45 07/01/17 11:44 06/07/17 01:08 Tamsulosin HCl (Flomax) 0.4 mg BID ORAL 05/31/17 18:00 06/30/17 17:59 06/06/17 17:36 Zolpidem Tartrate (Ambien) 5 mg HSPRN PRN ORAL Insomnia 05/31/17 11:15 06/07/17 11:14 Item Value Date Time Bedside Blood Glucose 144 mg/dl H 06/07/17 0630 Bedside Blood Glucose 190 mg/dl H 06/06/17 2134 Bedside Blood Glucose 396 mg/dl H 06/06/17 1658 Bedside Blood Glucose 282 mg/dl H 06/06/17 1150 Bedside Blood Glucose 160 mg/dl H 06/06/17 0941 MALKA SHERIFF Jun 07, 2017 07:05
[2017-06-07 07:09] LABS: EOSINOPHILS % (AUTO) 4.3 % (0.0-3.0); LYMPHOCYTES % (AUTO) 25.2 % (20.0-45.0); MEAN CORPUSCULAR HEMOGLOBIN 33.9 PG (27.0-31.0); MEAN CORPUSCULAR HGB CONC 33.4 G/DL (32.0-36.0); MEAN CORPUSCULAR VOLUME 101 FL (80-99); MEAN PLATELET VOLUME 6.3 FL (6.5-10.1); MONOCYTES % (AUTO) 8.9 % (1.0-10.0); NEUTROPHILS % (AUTO) 60.6 % (45.0-75.0); PLATELET COUNT 252 K/UL (150-450); RED BLOOD COUNT 2.46 M/UL (4.70-6.10); WHITE BLOOD COUNT 5.7 K/UL (4.8-10.8)
[2017-06-07 07:26] LABS: ALANINE AMINOTRANSFERASE 14 U/L (12-78); ALBUMIN/GLOBULIN RATIO 0.6 (1.0-2.7); ANION GAP 12 mmol/L (5-15); ASPARTATE AMINO TRANSFERASE 12 U/L (15-37); CALCIUM 8.1 MG/DL (8.5-10.1); CARBON DIOXIDE 18 MMOL/L (21-32); CHLORIDE 110 MMOL/L (98-107); CREATININE 4.5 MG/DL (0.55-1.30); GLOMERULAR FILTRATION RATE 13.3 mL/min (>60); MAGNESIUM 1.6 MG/DL (1.8-2.4); PHOSPHORUS 4.2 MG/DL (2.5-4.9); POTASSIUM 4.3 MMOL/L (3.5-5.1); SODIUM 140 MMOL/L (136-145); TOTAL PROTEIN 5.7 G/DL (6.4-8.2)
[2017-06-07 08:00] VITALS: BP 103/50
[2017-06-07] MEDS: Docusate 100mg cap ORAL SCH ×2 (08:40→12:29)
[2017-06-07] MEDS: Heparin 5000 units/ml inj SUBQ SCH (08:40)
[2017-06-07] MEDS: Aspirin Baby 81mg ORAL SCH (08:40)
[2017-06-07] MEDS: Tamsulosin 0.4mg cap ORAL SCH (08:41)
[2017-06-07] MEDS: Metoprolol Tartrate 50mg tab ORAL SCH (08:41)
[2017-06-07] MEDS: DULoxetine 30mg cap ORAL SCH (08:45)
[2017-06-07] MEDS: Levemir Flexpen SUBQ SCH (08:50)
--- NOTE | 2017-06-07 10:19 | Diagnostic Imaging Report ---
APPROVED REPORT CPT Code: 42934 Present Symptoms Comments: R/O DVT BILATERAL: Imaging reveals a patent deep venous system bilaterally. There is no evidence of thrombus within the femoral, popliteal or tibial segments. The greater saphenous veins are also within normal limits. Doppler indicates normal spontaneous flow within these segments.
--- NOTE | 2017-06-07 11:13 | Nephrology Progress Note ---
Assessment/Plan Problem List: (1) Anemia in chronic kidney disease (2) HTN (hypertension) (3) CKD (chronic kidney disease), stage III (4) DM (diabetes mellitus) Assessment Patient has urinary retention now has hernandez Cr at lowest- (1) CKD (chronic kidney disease), stage III, superimposed acute- Cr 3.1 a year ago now 4.5 (2) Dehydration- Partly (3) Hyperglycemia due to type 2 diabetes mellitus (4) BPH (benign prostatic hypertrophy) (5) Nephropathy, diabetic (6) History of simultaneous kidney and pancreas transplant (7) UTI (urinary tract infection) (8) Anemia of CKD Plan Plan: long discussion at presence of RN- Agreed with hernandez Was put in by Uro last evening bedside bladder scanshows urinary retention Slow Hydrate- BP and BS control- Flomax PO- monitor renal parameters Anemia [place] 2D Echo: Left ventricular ejection fraction estimated to be 55 %. No evidence of left ventricular hypertrophy. per orders OK to Dc with hernandez to leg bag , from renal stand Kidney JOHNNY- Impression: Markedly distended bladder with large post void residual Left iliac fossa transplant kidney with moderate hydronephrosis. Suspect hydronephrosis is secondary to the above bladder abnormality, although other etiologies are not excludable. Mildly elevated transplant kidney resistive indices. This is nonspecific, can be seen in uropathy, but can also be seen in acute or chronic rejection, acute tubular necrosis, among other possibilities Subjective ROS Limited/Unobtainable: No Constitutional: Reports: malaise Objective Objective Last 24 Hour Vital Signs Date Time Temp Pulse Resp B/P (MAP) Pulse Ox O2 Delivery O2 Flow Rate FiO2 06/07/17 10:08 98 Room Air 06/07/17 08:41 71 103/50 06/07/17 08:40 71 103/50 06/07/17 08:00 98.0 71 20 103/50 98 06/07/17 06:00 119/63 06/07/17 04:11 97.8 70 20 119/63 96 Room Air 06/07/17 00:00 98.2 79 21 115/67 96 Room Air 06/06/17 21:31 117/61 06/06/17 21:31 86 117/61 06/06/17 21:25 68 18 Room Air 21 06/06/17 20:00 98.6 86 20 117/61 96 Room Air 06/06/17 17:36 102 127/58 06/06/17 16:13 98.0 102 20 127/58 97 Room Air 06/06/17 13:51 138/74 06/06/17 12:02 97.4 77 19 123/57 99 Room Air Laboratory Tests 06/07/17 05:15: White Blood Count 5.7, Red Blood Count 2.46L, Hemoglobin 8.3L, Hematocrit 24.9L , Mean Corpuscular Volume 101H, Mean Corpuscular Hemoglobin 33.9H, Mean Corpuscular Hemoglobin Concent 33.4, Red Cell Distribution Width 14.0, Platelet Count 252, Mean Platelet Volume 6.3L, Neutrophils (%) (Auto) 60.6, Lymphocytes ( %) (Auto) 25.2, Monocytes (%) (Auto) 8.9, Eosinophils (%) (Auto) 4.3H, Basophils (%) (Auto) 1.0, Sodium Level 140, Potassium Level 4.3, Chloride Level 110H, Carbon Dioxide Level 18L, Anion Gap 12, Blood Urea Nitrogen 66H, Creatinine 4.5H, Estimat Glomerular Filtration Rate 13.3, Glucose Level 153H, Uric Acid 7.0, Calcium Level 8.1L, Phosphorus Level 4.2, Magnesium Level 1.6L, Total Bilirubin 0.3, Aspartate Amino Transf (AST/SGOT) 12L, Alanine Aminotransferase (ALT/SGPT) 14, Alkaline Phosphatase 77, Total Protein 5.7L, Albumin 2.2L, Globulin 3.5, Albumin/Globulin Ratio 0.6L Height (Feet): 5 Height (Inches): 10.00 Weight (Pounds): 200 General Appearance: no apparent distress, lethargic Objective no change BERT ALONSO Jun 07, 2017 11:13
--- NOTE | 2017-06-07 11:26 | Internal Med Progress Note ---
Subjective Date of Service: Jun 07, 2017 Physician Name Maher,Dee Attending Physician Christopher Rosado MD Current Medications Medications (Trade) Dose Ordered Sig/Dunia Route PRN Reason Start Time Stop Time Status Last Admin Dose Admin Acetaminophen (Tylenol) 650 mg Q4H PRN ORAL fever 05/31/17 11:15 06/30/17 11:14 Amlodipine Besylate (Norvasc) 5 mg BID ORAL 06/06/17 18:00 07/06/17 17:59 06/07/17 08:40 Aspirin (ASA) 81 mg DAILY ORAL 06/01/17 09:00 07/01/17 08:59 06/07/17 08:40 Atorvastatin Calcium (Lipitor) 10 mg BEDTIME ORAL 05/31/17 21:00 06/30/17 20:59 06/06/17 21:31 Chlorhexidine Gluconate (Eloisa-Hex 2%) 1 applic DAILY@2000 TOPIC 05/31/17 20:00 06/30/17 19:59 06/06/17 21:30 Dextrose (Dextrose 50%) STAT PRN IV Hypoglycemia 05/31/17 11:15 06/30/17 11:14 Docusate Sodium (Colace) 100 mg THREE TIMES A DAY ORAL 05/31/17 18:00 06/30/17 17:59 06/07/17 08:40 Duloxetine HCl (Cymbalta) 30 mg DAILY ORAL 06/02/17 09:00 07/02/17 08:59 06/07/17 08:45 Epoetin Jose (Procrit (for non ESRD use)) 10,000 units WED-WED-WED SUBQ 06/02/17 21:00 07/02/17 20:59 06/04/17 20:59 Ertapenem 0.5 gm/ Sodium Chloride 55 ml @ 110 mls/hr Q24H IV 06/06/17 13:00 06/11/17 12:59 06/06/17 13:46 Finasteride (Proscar) 5 mg DAILY ORAL 06/04/17 10:00 07/04/17 09:59 06/07/17 08:41 Heparin Sodium (Porcine) (Heparin 5000 units/ml) 5,000 units EVERY 12 HOURS SUBQ 05/31/17 21:00 06/30/17 20:59 06/07/17 08:40 Hydralazine HCl (Apresoline) 25 mg Q4H PRN ORAL bp of 160 syst and above 05/31/17 14:45 06/30/17 14:44 06/02/17 12:08 Hydralazine HCl (Apresoline) 25 mg Q8HR ORAL 06/06/17 14:00 07/06/17 13:59 06/06/17 13:51 Insulin Aspart (NovoLOG) BEFORE MEALS AND HS SUBQ 05/31/17 11:30 06/30/17 11:29 06/06/17 21:34 Insulin Aspart (NovoLOG) 8 units NOVOTIAC SUBQ 06/05/17 11:50 07/05/17 11:49 06/07/17 06:19 Insulin Detemir (Levemir) 12 units BID@0900,2100 SUBQ 06/05/17 09:00 07/05/17 08:59 06/07/17 08:50 Lansoprazole (Prevacid) 30 mg DAILY ORAL 05/31/17 15:00 06/30/17 14:59 06/07/17 08:40 Linezolid 300 ml @ 300 mls/hr Q12HR IVPB 06/06/17 12:00 06/13/17 11:59 06/07/17 08:39 Magnesium Sulfate 100 ml @ 100 mls/hr Q1H IVPB 06/07/17 10:30 06/07/17 12:29 06/07/17 10:35 Metoprolol Tartrate (Lopressor) 50 mg Q12HR ORAL 05/31/17 12:00 06/30/17 11:59 06/07/17 08:41 Ondansetron HCl (Zofran) 4 mg Q6H PRN IVP Nausea & Vomiting 05/31/17 11:15 06/30/17 11:14 Polyethylene Glycol (Miralax) 17 gm HSPRN PRN ORAL Constipation 05/31/17 11:15 06/30/17 11:14 Sodium Chloride 1,000 ml @ 75 mls/hr [id number] IV 06/01/17 11:45 07/01/17 11:44 06/07/17 01:08 Tamsulosin HCl (Flomax) 0.4 mg BID ORAL 05/31/17 18:00 06/30/17 17:59 06/07/17 08:41 Allergies: Coded Allergies: CEFEPIME (Verified Allergy, Intermediate, Rash, 01/23/13) Subjective 62 YO M admitted with hematuria. Cover for Int Med - Dr Rosado. [facility]wait [facility]charge to [facility] Objective Last Vital Signs Date Time Temp Pulse Resp B/P (MAP) Pulse Ox O2 Delivery O2 Flow Rate FiO2 06/07/17 10:08 98 Room Air 06/07/17 08:41 71 103/50 06/07/17 08:00 98.0 20 06/06/17 21:25 21 Laboratory Tests Test 06/07/17 05:15 White Blood Count 5.7 K/UL (4.8-10.8) Red Blood Count 2.46 M/UL (4.70-6.10) L Hemoglobin 8.3 G/DL (14.2-18.0) L Hematocrit 24.9 % (42.0-52.0) L Mean Corpuscular Volume 101 FL (80-99) H Mean Corpuscular Hemoglobin 33.9 PG (27.0-31.0) H Mean Corpuscular Hemoglobin Concent 33.4 G/DL (32.0-36.0) Red Cell Distribution Width 14.0 % (11.6-14.8) Platelet Count 252 K/UL (150-450) Mean Platelet Volume 6.3 FL (6.5-10.1) L Neutrophils (%) (Auto) 60.6 % (45.0-75.0) Lymphocytes (%) (Auto) 25.2 % (20.0-45.0) Monocytes (%) (Auto) 8.9 % (1.0-10.0) Eosinophils (%) (Auto) 4.3 % (0.0-3.0) H Basophils (%) (Auto) 1.0 % (0.0-2.0) Sodium Level 140 MMOL/L (136-145) Potassium Level 4.3 MMOL/L (3.5-5.1) Chloride Level 110 MMOL/L (98-107) H Carbon Dioxide Level 18 MMOL/L (21-32) L Anion Gap 12 mmol/L (5-15) Blood Urea Nitrogen 66 mg/dL (7-18) H Creatinine 4.5 MG/DL (0.55-1.30) H Estimat Glomerular Filtration Rate 13.3 mL/min (>60) Glucose Level 153 MG/DL (74-106) H Uric Acid 7.0 MG/DL (2.6-7.2) Calcium Level 8.1 MG/DL (8.5-10.1) L Phosphorus Level 4.2 MG/DL (2.5-4.9) Magnesium Level 1.6 MG/DL (1.8-2.4) L Total Bilirubin 0.3 MG/DL (0.2-1.0) Aspartate Amino Transf (AST/SGOT) 12 U/L (15-37) L Alanine Aminotransferase (ALT/SGPT) 14 U/L (12-78) Alkaline Phosphatase 77 U/L (46-116) Total Protein 5.7 G/DL (6.4-8.2) L Albumin 2.2 G/DL (3.4-5.0) L Globulin 3.5 g/dL Albumin/Globulin Ratio 0.6 (1.0-2.7) L Microbiology Date/Time Source Procedure Growth Status 06/05/17 17:45 Blood Blood Culture - Preliminary NO GROWTH AFTER 24 HOURS Resulted 06/05/17 17:30 Blood Blood Culture - Preliminary Gram Positive Cocci Resulted 06/05/17 12:20 Urine,Ureter/Kidney Urine Culture - Preliminary NO GROWTH AFTER 24 HOURS Resulted Objective General Appearance: WD/WN, no apparent distress, alert EENT: PERRL/EOMI, normal ENT inspection, TMs normal Neck: non-tender, normal alignment, supple, normal inspection Cardiovascular: normal peripheral pulses, normal rate, regular rhythm, no gallop/murmur, no JVD Respiratory/Chest: chest wall non-tender, lungs clear, normal breath sounds, no respiratory distress, no accessory muscle use Abdomen: normal bowel sounds, non tender, soft, no organomegaly, no mass 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 (5) CAD (coronary artery disease) (6) Acute on chronic renal failure Assessment & Plan: See nephrology note. Await renal ultrasound. (7) Anemia in chronic kidney disease (8) DM (diabetes mellitus) Assessment & Plan: Hypoglycemic this am. Continue novolog sliding scale. See endocrinology note. (9) History of simultaneous kidney and pancreas transplant (10) BPH (benign prostatic hyperplasia) Assessment & Plan: continue flomax (11) Gastritis Assessment & Plan: Continue prevacid (12) Hypercholesteremia Assessment & Plan: Continue lipitor (13) Hematuria Assessment & Plan: Await urology consult as R/O bladder cancer. (14) Retention, urine Assessment & Plan: D/C hernandez cath-see urology note. Status: stable Assessment/Plan [facility]charge [facility] today. DEE MAHER Jun 07, 2017 11:26
[2017-06-07 12:00] VITALS: BP 109/58
[2017-06-07] MEDS: Ertapenem 500mg ivpb (q24h) IV SCH ×2 (12:30)
--- NOTE | 2017-06-07 13:39 | Pulmonology Progress Note ---
Assessment/Plan Problems: (1) Hematuria (2) Pulmonary HTN (3) Anemia in chronic kidney disease (4) CAD (coronary artery disease) (5) HTN (hypertension) (6) DM (diabetes mellitus) Assessment/Plan sliding scale.continue Levemir 12 units bid continue Novolog 8 units ac tid + SSI BS better now US of renal reviewed adjust insulin no new complains H/H stable IV fluids check electrolytes dc planning in process Subjective ROS Limited/Unobtainable: No HEENT: Repors: no symptoms Respiratory: Reports: no symptoms Allergies: Coded Allergies: CEFEPIME (Verified Allergy, Intermediate, Rash, 01/23/13) Objective Last 24 Hour Vital Signs Date Time Temp Pulse Resp B/P (MAP) Pulse Ox O2 Delivery O2 Flow Rate FiO2 06/07/17 12:00 97.9 76 18 109/58 98 06/07/17 10:08 98 Room Air 06/07/17 08:41 71 103/50 06/07/17 08:40 71 103/50 06/07/17 08:00 98.0 71 20 103/50 98 06/07/17 06:00 119/63 06/07/17 04:11 97.8 70 20 119/63 96 Room Air 06/07/17 00:00 98.2 79 21 115/67 96 Room Air 06/06/17 21:31 117/61 06/06/17 21:31 86 117/61 06/06/17 21:25 68 18 Room Air 21 06/06/17 20:00 98.6 86 20 117/61 96 Room Air 06/06/17 17:36 102 127/58 06/06/17 16:13 98.0 102 20 127/58 97 Room Air 06/06/17 13:51 138/74 Objective General Appearance: WD/WN HEENT: normocephalic, anicteric Cardiovascular: normal peripheral pulses, normal rate Abdomen: normal bowel sounds, no organomegaly Genitourinary: normal external genitalia Extremities: no clubbing Skin: no lesions Lymphatic: no neck adenopathy Microbiology Date/Time Source Procedure Growth Status 06/05/17 17:45 Blood Blood Culture - Preliminary NO GROWTH AFTER 24 HOURS Resulted 06/05/17 17:30 Blood Blood Culture - Preliminary Gram Positive Cocci Resulted 06/05/17 12:20 Urine,Ureter/Kidney Urine Culture - Preliminary NO GROWTH AFTER 24 HOURS Resulted Laboratory Tests 06/07/17 05:15: White Blood Count 5.7, Red Blood Count 2.46L, Hemoglobin 8.3L, Hematocrit 24.9L , Mean Corpuscular Volume 101H, Mean Corpuscular Hemoglobin 33.9H, Mean Corpuscular Hemoglobin Concent 33.4, Red Cell Distribution Width 14.0, Platelet Count 252, Mean Platelet Volume 6.3L, Neutrophils (%) (Auto) 60.6, Lymphocytes ( %) (Auto) 25.2, Monocytes (%) (Auto) 8.9, Eosinophils (%) (Auto) 4.3H, Basophils (%) (Auto) 1.0, Sodium Level 140, Potassium Level 4.3, Chloride Level 110H, Carbon Dioxide Level 18L, Anion Gap 12, Blood Urea Nitrogen 66H, Creatinine 4.5H, Estimat Glomerular Filtration Rate 13.3, Glucose Level 153H, Uric Acid 7.0, Calcium Level 8.1L, Phosphorus Level 4.2, Magnesium Level 1.6L, Total Bilirubin 0.3, Aspartate Amino Transf (AST/SGOT) 12L, Alanine Aminotransferase (ALT/SGPT) 14, Alkaline Phosphatase 77, Total Protein 5.7L, Albumin 2.2L, Globulin 3.5, Albumin/Globulin Ratio 0.6L Current Medications Medications (Trade) Dose Ordered Sig/Dunia Route PRN Reason Start Time Stop Time Status Last Admin Dose Admin Acetaminophen (Tylenol) 650 mg Q4H PRN ORAL fever 05/31/17 11:15 06/30/17 11:14 Amlodipine Besylate (Norvasc) 5 mg BID ORAL 06/06/17 18:00 07/06/17 17:59 06/07/17 08:40 Aspirin (ASA) 81 mg DAILY ORAL 06/01/17 09:00 07/01/17 08:59 06/07/17 08:40 Atorvastatin Calcium (Lipitor) 10 mg BEDTIME ORAL 05/31/17 21:00 06/30/17 20:59 06/06/17 21:31 Chlorhexidine Gluconate (Eloisa-Hex 2%) 1 applic DAILY@1999 TOPIC 05/31/17 20:00 06/30/17 19:59 06/06/17 21:30 Dextrose (Dextrose 50%) STAT PRN IV Hypoglycemia 05/31/17 11:15 06/30/17 11:14 Docusate Sodium (Colace) 100 mg THREE TIMES A DAY ORAL 05/31/17 18:00 06/30/17 17:59 06/07/17 12:29 Duloxetine HCl (Cymbalta) 30 mg DAILY ORAL 06/02/17 09:00 07/02/17 08:59 06/07/17 08:45 Epoetin Jose (Procrit (for non ESRD use)) 10,000 units WED-WED-WED SUBQ 06/02/17 21:00 07/02/17 20:59 06/04/17 20:59 Ertapenem 0.5 gm/ Sodium Chloride 55 ml @ 110 mls/hr Q24H IV 06/06/17 13:00 06/11/17 12:59 06/07/17 12:30 Finasteride (Proscar) 5 mg DAILY ORAL 06/04/17 10:00 07/04/17 09:59 06/07/17 08:41 Heparin Sodium (Porcine) (Heparin 5000 units/ml) 5,000 units EVERY 12 HOURS SUBQ 05/31/17 21:00 06/30/17 20:59 06/07/17 08:40 Hydralazine HCl (Apresoline) 25 mg Q4H PRN ORAL bp of 160 syst and above 05/31/17 14:45 06/30/17 14:44 06/02/17 12:08 Hydralazine HCl (Apresoline) 25 mg Q8HR ORAL 06/06/17 14:00 07/06/17 13:59 06/06/17 13:51 Insulin Aspart (NovoLOG) BEFORE MEALS AND HS SUBQ 05/31/17 11:30 06/30/17 11:29 06/07/17 11:30 Insulin Aspart (NovoLOG) 8 units NOVOTIAC SUBQ 06/05/17 11:50 07/05/17 11:49 06/07/17 11:50 Insulin Detemir (Levemir) 12 units BID@0900,2100 SUBQ 06/05/17 09:00 07/05/17 08:59 06/07/17 08:50 Lansoprazole (Prevacid) 30 mg DAILY ORAL 05/31/17 15:00 06/30/17 14:59 06/07/17 08:40 Linezolid 300 ml @ 300 mls/hr Q12HR IVPB 06/06/17 12:00 06/13/17 11:59 06/07/17 08:39 Metoprolol Tartrate (Lopressor) 50 mg Q12HR ORAL 05/31/17 12:00 06/30/17 11:59 06/07/17 08:41 Ondansetron HCl (Zofran) 4 mg Q6H PRN IVP Nausea & Vomiting 05/31/17 11:15 06/30/17 11:14 Polyethylene Glycol (Miralax) 17 gm HSPRN PRN ORAL Constipation 05/31/17 11:15 06/30/17 11:14 Sodium Chloride 1,000 ml @ 75 mls/hr [id number] IV 06/01/17 11:45 07/01/17 11:44 06/07/17 01:08 Tamsulosin HCl (Flomax) 0.4 mg BID ORAL 05/31/17 18:00 06/30/17 17:59 06/07/17 08:41 MARGO GALLEGOS Jun 07, 2017 13:39
[2017-06-07 13:54] VITALS: BP 109/58
--- NOTE | 2017-06-07 14:10 | Infectious Diseases Prog Note ---
Assessment/Plan Problems: (1) Sepsis Assessment & Plan: with enterococcus faecalis sensitive to vancomycin , [facility] and [facility] the nurse kavitha , and updated her of the blood culture results , and asked her to remove the picc line and continue zyvox for two weeks total after picc line is removed , and stop ertapenem since his urine culture is negative . she was advised to wait on placing new picc line for 48 hours after the old line is removed .I also toled her to repeat blood culture to confirm clearance . (2) UTI (urinary tract infection) Assessment & Plan: due to retention, urine culture remains negative , continue ertapenem for two weeks . 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 Assessment & Plan: S/P rejection , may need HD since he is becoming uremic (5) DKA (diabetic ketoacidoses) Assessment & Plan: recommend tight glycemic control to keep premeals less than 130, and post prandial less than 180 (6) CKD (chronic kidney disease), stage III Assessment & Plan: continue hydration , monitor UOP, may require HD if continue to retain fluids , renal is following (7) urinary retention Assessment & Plan: improved, S/P hernandez catheter placed Subjective Constitutional: Reports: no symptoms HEENT: Reports: no symptoms Respiratory: Reports: no symptoms Breasts: Reports: no symptoms Cardiovascular: Reports: no symptoms Gastrointestinal/Abdominal: Reports: no symptoms Genitourinary: Reports: no symptoms Neurologic: Reports: no symptoms Psychiatric: Reports: no symptoms Skin: Reports: no symptoms Endocrine: Reports: no symptoms Hematologic: Reports: no symptoms Musculoskeletal: Reports: no symptoms Allergies: Coded Allergies: CEFEPIME (Verified Allergy, Intermediate, Rash, 01/23/13) Objective Vital Signs Last 24 Hour Vital Signs Date Time Temp Pulse Resp B/P (MAP) Pulse Ox O2 Delivery O2 Flow Rate FiO2 06/07/17 13:54 109/58 06/07/17 12:00 97.9 76 18 109/58 98 06/07/17 10:08 98 Room Air 06/07/17 08:41 71 103/50 06/07/17 08:40 71 103/50 06/07/17 08:00 98.0 71 20 103/50 98 06/07/17 06:00 119/63 06/07/17 04:11 97.8 70 20 119/63 96 Room Air 06/07/17 00:00 98.2 79 21 115/67 96 Room Air 06/06/17 21:31 117/61 06/06/17 21:31 86 117/61 06/06/17 21:25 68 18 Room Air 21 06/06/17 20:00 98.6 86 20 117/61 96 Room Air 06/06/17 17:36 102 127/58 06/06/17 16:13 98.0 102 20 127/58 97 Room Air Height (Feet): 5 Height (Inches): 10.00 Weight (Pounds): 200 General Appearance: WD/WN, no acute distress HEENT: normocephalic, atraumatic, anicteric, mucous membranes moist, PERRL, EOMI, pharynx normal, supple, no JVD Respiratory/Chest: chest wall non-tender, lungs clear, normal breath sounds, no respiratory distress, no accessory muscle use Cardiovascular: normal peripheral pulses, normal rate, regular rhythm, no gallop/murmur, no JVD Abdomen: normal bowel sounds, soft, non tender, no organomegaly, non distended , no mass Extremities: no cyanosis, no clubbing Skin: no rash, no lesions, no ulcers Neurologic/Psychiatric: alert, oriented x 3 Lymphatic: no neck adenopathy, no groin adenopathy Microbiology Date/Time Source Procedure Growth Status 06/05/17 17:45 Blood Blood Culture - Preliminary NO GROWTH AFTER 24 HOURS Resulted 06/05/17 17:30 Blood Blood Culture - Preliminary Gram Positive Cocci Resulted 06/05/17 12:20 Urine,Ureter/Kidney Urine Culture - Preliminary NO GROWTH AFTER 24 HOURS Resulted Laboratory Tests Test 06/07/17 05:15 White Blood Count 5.7 K/UL (4.8-10.8) Red Blood Count 2.46 M/UL (4.70-6.10) L Hemoglobin 8.3 G/DL (14.2-18.0) L Hematocrit 24.9 % (42.0-52.0) L Mean Corpuscular Volume 101 FL (80-99) H Mean Corpuscular Hemoglobin 33.9 PG (27.0-31.0) H Mean Corpuscular Hemoglobin Concent 33.4 G/DL (32.0-36.0) Red Cell Distribution Width 14.0 % (11.6-14.8) Platelet Count 252 K/UL (150-450) Mean Platelet Volume 6.3 FL (6.5-10.1) L Neutrophils (%) (Auto) 60.6 % (45.0-75.0) Lymphocytes (%) (Auto) 25.2 % (20.0-45.0) Monocytes (%) (Auto) 8.9 % (1.0-10.0) Eosinophils (%) (Auto) 4.3 % (0.0-3.0) H Basophils (%) (Auto) 1.0 % (0.0-2.0) Sodium Level 140 MMOL/L (136-145) Potassium Level 4.3 MMOL/L (3.5-5.1) Chloride Level 110 MMOL/L (98-107) H Carbon Dioxide Level 18 MMOL/L (21-32) L Anion Gap 12 mmol/L (5-15) Blood Urea Nitrogen 66 mg/dL (7-18) H Creatinine 4.5 MG/DL (0.55-1.30) H Estimat Glomerular Filtration Rate 13.3 mL/min (>60) Glucose Level 153 MG/DL (74-106) H Uric Acid 7.0 MG/DL (2.6-7.2) Calcium Level 8.1 MG/DL (8.5-10.1) L Phosphorus Level 4.2 MG/DL (2.5-4.9) Magnesium Level 1.6 MG/DL (1.8-2.4) L Total Bilirubin 0.3 MG/DL (0.2-1.0) Aspartate Amino Transf (AST/SGOT) 12 U/L (15-37) L Alanine Aminotransferase (ALT/SGPT) 14 U/L (12-78) Alkaline Phosphatase 77 U/L (46-116) Total Protein 5.7 G/DL (6.4-8.2) L Albumin 2.2 G/DL (3.4-5.0) L Globulin 3.5 g/dL Albumin/Globulin Ratio 0.6 (1.0-2.7) L Current Medications Medications (Trade) Dose Ordered Sig/Dunia Route PRN Reason Start Time Stop Time Status Last Admin Dose Admin Acetaminophen (Tylenol) 650 mg Q4H PRN ORAL fever 05/31/17 11:15 06/30/17 11:14 Amlodipine Besylate (Norvasc) 5 mg BID ORAL 06/06/17 18:00 07/06/17 17:59 06/07/17 08:40 Aspirin (ASA) 81 mg DAILY ORAL 06/01/17 09:00 07/01/17 08:59 06/07/17 08:40 Atorvastatin Calcium (Lipitor) 10 mg BEDTIME ORAL 05/31/17 21:00 06/30/17 20:59 06/06/17 21:31 Chlorhexidine Gluconate (Eloisa-Hex 2%) 1 applic DAILY@1999 TOPIC 05/31/17 20:00 06/30/17 19:59 06/06/17 21:30 Dextrose (Dextrose 50%) STAT PRN IV Hypoglycemia 05/31/17 11:15 06/30/17 11:14 Docusate Sodium (Colace) 100 mg THREE TIMES A DAY ORAL 05/31/17 18:00 06/30/17 17:59 06/07/17 12:29 Duloxetine HCl (Cymbalta) 30 mg DAILY ORAL 06/02/17 09:00 07/02/17 08:59 06/07/17 08:45 Epoetin Jose (Procrit (for non ESRD use)) 10,000 units WED-WED-WED SUBQ 06/02/17 21:00 07/02/17 20:59 06/04/17 20:59 Ertapenem 0.5 gm/ Sodium Chloride 55 ml @ 110 mls/hr Q24H IV 06/06/17 13:00 06/11/17 12:59 06/07/17 12:30 Finasteride (Proscar) 5 mg DAILY ORAL 06/04/17 10:00 07/04/17 09:59 06/07/17 08:41 Heparin Sodium (Porcine) (Heparin 5000 units/ml) 5,000 units EVERY 12 HOURS SUBQ 05/31/17 21:00 06/30/17 20:59 06/07/17 08:40 Hydralazine HCl (Apresoline) 25 mg Q4H PRN ORAL bp of 160 syst and above 05/31/17 14:45 06/30/17 14:44 06/02/17 12:08 Hydralazine HCl (Apresoline) 25 mg Q8HR ORAL 06/06/17 14:00 07/06/17 13:59 06/06/17 13:51 Insulin Aspart (NovoLOG) BEFORE MEALS AND HS SUBQ 05/31/17 11:30 06/30/17 11:29 06/07/17 11:30 Insulin Aspart (NovoLOG) 8 units NOVOTIAC SUBQ 06/05/17 11:50 07/05/17 11:49 06/07/17 11:50 Insulin Detemir (Levemir) 12 units BID@0900,2100 SUBQ 06/05/17 09:00 07/05/17 08:59 06/07/17 08:50 Lansoprazole (Prevacid) 30 mg DAILY ORAL 05/31/17 15:00 06/30/17 14:59 06/07/17 08:40 Linezolid 300 ml @ 300 mls/hr Q12HR IVPB 06/06/17 12:00 06/13/17 11:59 06/07/17 08:39 Metoprolol Tartrate (Lopressor) 50 mg Q12HR ORAL 05/31/17 12:00 06/30/17 11:59 06/07/17 08:41 Ondansetron HCl (Zofran) 4 mg Q6H PRN IVP Nausea & Vomiting 05/31/17 11:15 06/30/17 11:14 Polyethylene Glycol (Miralax) 17 gm HSPRN PRN ORAL Constipation 05/31/17 11:15 06/30/17 11:14 Sodium Chloride 1,000 ml @ 75 mls/hr [id number] IV 06/01/17 11:45 07/01/17 11:44 06/07/17 01:08 Tamsulosin HCl (Flomax) 0.4 mg BID ORAL 05/31/17 18:00 06/30/17 17:59 06/07/17 08:41 Josue Mcpherson M.D. Jun 07, 2017 14:10
[2017-06-07] MEDS ORDERED: INVANZ1 GM IVPB (14:23)
[2017-06-07] MEDS ORDERED: ZYVOX600 MG/300 IVPB (14:24)
[2017-06-07] MEDS ORDERED: 1/2 NS 1000ml IV ONE (14:49)
[2017-06-07] MEDS ORDERED: Tubing IV Secondary IV ONE (14:49)
--- NOTE | 2017-06-07 23:19 | General Progress Note ---
Assessment/Plan Status: stable, progressing Assessment/Plan mdd cont cymbalta Subjective Date patient seen: Jun 07, 2017 Neurologic/Psychiatric: Reports: anxiety, depressed, emotional problems Allergies: Coded Allergies: CEFEPIME (Verified Allergy, Intermediate, Rash, 01/23/13) Subjective the pt is withdrawn min verbal Objective Last 24 Hour Vital Signs Date Time Temp Pulse Resp B/P (MAP) Pulse Ox O2 Delivery O2 Flow Rate FiO2 06/07/17 13:54 109/58 06/07/17 12:00 97.9 76 18 109/58 98 06/07/17 10:08 98 Room Air 06/07/17 08:41 71 103/50 06/07/17 08:40 71 103/50 06/07/17 08:00 98.0 71 20 103/50 98 06/07/17 06:00 119/63 06/07/17 04:11 97.8 70 20 119/63 96 Room Air 06/07/17 00:00 98.2 79 21 115/67 96 Room Air Laboratory Tests 06/07/17 05:15: White Blood Count 5.7, Red Blood Count 2.46L, Hemoglobin 8.3L, Hematocrit 24.9L , Mean Corpuscular Volume 101H, Mean Corpuscular Hemoglobin 33.9H, Mean Corpuscular Hemoglobin Concent 33.4, Red Cell Distribution Width 14.0, Platelet Count 252, Mean Platelet Volume 6.3L, Neutrophils (%) (Auto) 60.6, Lymphocytes ( %) (Auto) 25.2, Monocytes (%) (Auto) 8.9, Eosinophils (%) (Auto) 4.3H, Basophils (%) (Auto) 1.0, Sodium Level 140, Potassium Level 4.3, Chloride Level 110H, Carbon Dioxide Level 18L, Anion Gap 12, Blood Urea Nitrogen 66H, Creatinine 4.5H, Estimat Glomerular Filtration Rate 13.3, Glucose Level 153H, Uric Acid 7.0, Calcium Level 8.1L, Phosphorus Level 4.2, Magnesium Level 1.6L, Total Bilirubin 0.3, Aspartate Amino Transf (AST/SGOT) 12L, Alanine Aminotransferase (ALT/SGPT) 14, Alkaline Phosphatase 77, Total Protein 5.7L, Albumin 2.2L, Globulin 3.5, Albumin/Globulin Ratio 0.6L Height (Feet): 5 Height (Inches): 10.00 Weight (Pounds): 200 General Appearance: no apparent distress, alert Neurologic: alert, oriented x 3, responsive, normal mood/affect Fatmata Lu M.D. Jun 07, 2017 23:19
--- NOTE | 2017-06-07 23:19 | Geriatric Progress Note ---
Subjective Interval Events 06/06/17 Geriatric Geriatric Last 24 Hour Vital Signs Date Time Temp Pulse Resp B/P (MAP) Pulse Ox O2 Delivery O2 Flow Rate FiO2 06/07/17 13:54 109/58 06/07/17 12:00 97.9 76 18 109/58 98 06/07/17 10:08 98 Room Air 06/07/17 08:41 71 103/50 06/07/17 08:40 71 103/50 06/07/17 08:00 98.0 71 20 103/50 98 06/07/17 06:00 119/63 06/07/17 04:11 97.8 70 20 119/63 96 Room Air 06/07/17 00:00 98.2 79 21 115/67 96 Room Air Laboratory Tests Test 06/07/17 05:15 White Blood Count 5.7 K/UL (4.8-10.8) Red Blood Count 2.46 M/UL (4.70-6.10) L Hemoglobin 8.3 G/DL (14.2-18.0) L Hematocrit 24.9 % (42.0-52.0) L Mean Corpuscular Volume 101 FL (80-99) H Mean Corpuscular Hemoglobin 33.9 PG (27.0-31.0) H Mean Corpuscular Hemoglobin Concent 33.4 G/DL (32.0-36.0) Red Cell Distribution Width 14.0 % (11.6-14.8) Platelet Count 252 K/UL (150-450) Mean Platelet Volume 6.3 FL (6.5-10.1) L Neutrophils (%) (Auto) 60.6 % (45.0-75.0) Lymphocytes (%) (Auto) 25.2 % (20.0-45.0) Monocytes (%) (Auto) 8.9 % (1.0-10.0) Eosinophils (%) (Auto) 4.3 % (0.0-3.0) H Basophils (%) (Auto) 1.0 % (0.0-2.0) Sodium Level 140 MMOL/L (136-145) Potassium Level 4.3 MMOL/L (3.5-5.1) Chloride Level 110 MMOL/L (98-107) H Carbon Dioxide Level 18 MMOL/L (21-32) L Anion Gap 12 mmol/L (5-15) Blood Urea Nitrogen 66 mg/dL (7-18) H Creatinine 4.5 MG/DL (0.55-1.30) H Estimat Glomerular Filtration Rate 13.3 mL/min (>60) Glucose Level 153 MG/DL (74-106) H Uric Acid 7.0 MG/DL (2.6-7.2) Calcium Level 8.1 MG/DL (8.5-10.1) L Phosphorus Level 4.2 MG/DL (2.5-4.9) Magnesium Level 1.6 MG/DL (1.8-2.4) L Total Bilirubin 0.3 MG/DL (0.2-1.0) Aspartate Amino Transf (AST/SGOT) 12 U/L (15-37) L Alanine Aminotransferase (ALT/SGPT) 14 U/L (12-78) Alkaline Phosphatase 77 U/L (46-116) Total Protein 5.7 G/DL (6.4-8.2) L Albumin 2.2 G/DL (3.4-5.0) L Globulin 3.5 g/dL Albumin/Globulin Ratio 0.6 (1.0-2.7) L Height (Feet): 5 Height (Inches): 10.00 Weight (Pounds): 200 Fatmata Lu M.D. Jun 07, 2017 23:19
--- NOTE | 2017-06-08 09:39 | Discharge Summary ---
Discharge Summary Hospital Course Date of Admission May 31, 2017 at 10:30 Date of Discharge Jun 07, 2017 at 14:50 Admitting Diagnosis HEMATURIA, RENAL INSUFFICIENCY HPI Paul Urrutia is a 62 year old male who was admitted on May 31, 2017 at 10: 30 for Hematura,Renal Insufficiency Hospital Course dc summary #[id number] Discharge Medications New Medications: Tamsulosin Hcl (Tamsulosin Hcl*) 0.4 Mg Cap.er.24h 0.4 MG ORAL BEDTIME for 30 Days, CAP Finasteride (Finasteride) 5 Mg Tablet 5 MG ORAL DAILY for 30 Days, TAB Continued Medications: Acetaminophen (Acetaminophen) 650 Mg/20.3 Ml Soln 650 MG ORAL Q6H PRN for Prn Headache/Temp > 101, ML 0 Refills Amlodipine Besylate (Norvasc) 5 Mg Tab 5 MG ORAL DAILY, TAB Aspirin* (Aspirin*) 81 Mg Chew 81 MG ORAL DAILY for 30 Days, TAB Atorvastatin Calcium* (Lipitor*) 10 Mg Tab 10 MG ORAL BEDTIME for 30 Days, TAB Atorvastatin Calcium* (Lipitor*) 10 Mg Tablet 10 MG ORAL BEDTIME, TAB Azathioprine (Azathioprine) 50 Mg Tab 50 MG ORAL DAILY for 30 Days, TAB Azathioprine* (Imuran*) 50 Mg Tablet 50 MG PO DAILY, TAB Cholecalciferol (Vitamin D3)* (Vitamin D*) 1,000 Intlu Tab 5000 INTLU ORAL Mo@09 for 30 Days, TAB Citric Acid/Sodium Citrate (Cytra-2 Oral Solution) 473 Ml Solution 30 ML PO Cranberry Fruit Concentrate (Cranberry) 450 Mg Capsule 450 MG PO DAILY, CAP Docusate Sodium* (Colace*) 100 Mg Cap 100 MG ORAL TWICE A DAY for 30 Days, CAP Doxycycline Hyclate (Doxycycline Hyclate) 100 Mg Tablet 100 MG PO BID, #20 TAB Duloxetine Hcl* (Cymbalta*) 30 Mg Capsule.dr 30 MG ORAL DAILY, CAP Epoetin Jose (Epogen) 10 000/1 Ml Vial 47026 UNIT SUBQ THREE TIMES A WEEK, VIAL Ertapenem Sodium* (INVanz*) 1 Gm Vial.port 1 GM IVPB Q24H, VIAL Ferrous Sulfate* (Ferrous Sulfate*) 325 Mg Tablet 325 MG ORAL DAILY, #30 TAB 0 Refills Insulin Aspart (Novolog Flexpen) 100 Units/Ml Pen 10 UNITS SUBQ NOVOTIAC, #1 EA Insulin Aspart (Novolog Flexpen) 100 Units/Ml Pen 0 UNITS SUBQ BEFORE MEALS AND HS, #1 EA Insulin Aspart (Novolog Flexpen) 100 Unit/1 Ml Insuln.pen 5 SQ AC Insulin Detemir (Levemir Flexpen) 100 Unit/1 Ml Insuln.pen 15 UNITS SUBQ BID, #1 EA Insulin Glargine (Lantus) 100 Unit/1 Ml Insuln.pen 6 SUBQ BID, #1 EA 0 Refills Insulin Glargine (Lantus) 100 Unit/1 Ml Insuln.pen 10 SUBQ DAILY, #1 EA 0 Refills Insulin Glargine (Lantus) 100 Unit/1 Ml Insuln.pen 6 SUBQ BEDTIME, #1 EA 0 Refills Insulin Lispro (Humalog) 100 Unit/1 Ml Cartridge 4 SUBQ AC, #1 UNITS 0 Refills Ipratropium/Albuterol Sulfate (DuoNeb 0.5-3(2.5)mg/3ml) 3 Ml Ampul.neb 3 ML HHN Q4HRT PRN for Shortness of Breath for 30 Days, EA Linezolid (Zyvox) 600 Mg/300 Ml Iv.soln 600 MG IVPB EVERY 12 HOURS, MG Metoprolol Succinate* (Metoprolol Succinate*) 50 Mg Tab.er.24h 50 MG ORAL Q12HR, TAB Omeprazole (Omeprazole) 40 Mg Capsule.dr 40 MG ORAL DAILY, CAP Ondansetron (Zofran) 4 Mg Tab 4 MG ORAL Q6H PRN for Nausea & Vomiting, TAB Pantoprazole* (Protonix*) 40 Mg Tabec 40 MG ORAL DAILY for 30 Days, TAB Polyethylene Glycol* (Miralax*) 17 Gm Pack 17 GM ORAL BEDTIME for 30 Days, PACK Sevelamer Carbonate* (Renvela*) 0.8 Gm Powd.pack 800 MG ORAL THREE TIMES A DAY, PACK Sodium Citrate (Sod Citrate-Citric Acid Soln) 30 Ml Udc 30 ML ORAL THREE TIMES A DAY, #90 EA Tamsulosin HCl (Flomax) 0.4 Mg Cap 0.4 MG ORAL BID, TAB Vit B Complex & C No.13/Fa/D3 (Nephrocaps Qt Tablet) 1 Each Tab.rapdis 1 EACH PO DAILY, TAB Vitamin D (Vitamin D3) 400 Unit Tablet 5000 UNITS ORAL DAILY, TAB Warfarin Sod* (Coumadin*) 4 Mg Tablet 4 MG ORAL DAILY, TAB [Novolog ss] () [Warfarin RX monitoring] () 1 EA MISC 1 EA MISC DAILY PRN for Per rx protocol Discharge Condition Upon Discharge: stable Discharge Disposition Patient was discharged to SNF Discharge Diagnoses: Discharge Instructions Discharge Instructions Special Instructions I have been assigned to complete a D/C Summary on this account. I was not involved in the patient management Catherine Griffin NP ([facility]te[facility]) Jun 08, 2017 09:39
--- NOTE | 2017-06-08 20:30 | Discharge Summary 2 SIG ---
DATE OF ADMISSION: 05/31/2017 DATE OF DISCHARGE: 06/07/2017 REASON FOR ADMISSION: 62-year-old male with complicated medical history including coronary artery disease, hypertension, chronic kidney disease, diabetes mellitus, and encephalopathy presented to emergency department with a chief complaint of hematuria. Laboratory workup was notable for elevated BUN and creatinine compared to the previous labs. The patient with history of renal transplant. No hyperkalemia. Urinalysis with possible evidence of urinary tract infection. The patient was admitted for further management. HOSPITAL STAY: The patient was admitted. The patient was started on empiric antibiotics. ID consulted. Urine culture was negative. Blood culture revealed Enterococci faecalis. Antibiotic regimen optimized as per ID recommendations, and the patient was discharged on oral antibiotic. The patient will need surveillance blood culture at the facility to confirm clearance. The patient had a renal ultrasound done on admission, which revealed markedly distended bladder with large postvoid residual, moderate hydronephrosis likely secondary to above bladder abnormality. Subsequently, urologist seen and evaluated the patient. Urologist dilated the urethral meatus and placed Cline catheter. Patient was started on Flomax and Proscar. Urologist seen the patient on the next day and recommended to keep Cline for now and follow up as outpatient. Per urologist, Cline catheter could be removed later. He anticipated improved urination secondary to dilatation of urethral meatus as well as initiation of Proscar and Flomax. Booster Assembler closely followed the patient. Renal parameters and electrolytes were closely monitored. The patient likely had diabetic nephropathy as per political cartoonist and chronic kidney disease stage 3 with superimposed acute renal failure. Patient was on slow hydration. Nephrotoxics were avoided. Initial creatinine -5.6 and prior to discharge -4.5. Blood pressure was managed with current regimen and was stable. Echocardiogram was done and revealed preserved ejection fraction of 55%. No evidence of left ventricular hypertrophy and right ventricular systolic pressure of 40 consistent with mild pulmonary hypertension as well as [id number] mitral regurgitation. Venous duplex revealed patent deep venous system bilaterally. DVT prophylaxis provided. Statin continued. Initially the patient had hyperglycemia. Endocrinology consult was requested. Hemoglobin A1c - 6.9 at goal. Blood sugar was managed with long-acting insulin, short acting insulin pre-meals and sliding scale of insulin on as needed basis. Blood sugar significantly improved. The patient was counseled on diabetic diet. Anemia workup was consistent with anemia of chronic disease, likely renal disease. Hemoglobin and hematocrit remained stable, at the baseline, goal to keep hemoglobin above 8. Prior to discharge, hemoglobin -8.3 and hematocrit -24.9. Epogen was added for management of anemia. Chest x-ray revealed no acute cardiopulmonary pathology, but showed left base atelectasis. The pulse oximetry was stable on room air. Bowel regimen instituted. Pain management provided as needed. PPI continued. Vitamin D continued. Psychiatrist seen and evaluated the patient, and diagnosed him with major depressive disorder. Patient was started on Cymbalta. The patient was stable for [facility]. FOLLOWUP: Follow up with medical doctor at the facility. Follow up with the urologist as outpatient. Anticipate discharge Cline soon and monitor for voiding. DISCHARGE DIAGNOSES: 1. Sepsis with bacteremia/Enterococci faecalis. 2. Probable urinary tract infection secondary to urinary retention. 3. Acute on chronic kidney disease stage 3 . 4. Hematuria, resolved. 5. Urinary retention, resolved. 6. Dehydration. 7. Hyperglycemia secondary to diabetes mellitus type 2, resolved. 8. Diabetic nephropathy. 9. Hypertension. 10. Anemia of chronic renal disease. 11. History of kidney and pancreas transplant. 12. Coronary artery disease. 13. Pulmonary hypertension. 14. Hypoparathyroidism. 15. Renal osteodystrophy. 16. Vitamin D deficiency. 17. Gastritis. 18. Benign prostatic hypertrophy. 19. Hypercholesterolemia. 20. Major depression disorder. DISCHARGE MEDICATIONS: See medication reconciliation list. DISCHARGE INSTRUCTIONS: The [facility] Follow up with medical doctor at the facility. Anticipate discontinue Cline catheter soon. Monitor for voiding. Monitor renal parameters. Monitor hemoglobin and hematocrit. Christopher Rosado M.D. I have been assigned to dictate discharge summary on this account and I was not involved in the patient's management. Catherine AlvaKingsbrook Jewish Medical CenterShleley N.P. DR: MELBA JOB#: [id number] CC: ELOY
[2017-06-14 10:48] LABS: HEPATITIS BE ANTIGEN/CEDARS NONREACTIVE (NONREACTIVE); HEPATITIS C VIRUS AB/CEDARS 0.18 S/CO (<0.80)
== END 2017-06-07 14:50 | DRG 682 ==
LOC: EDBD 09:27 → EDBEDREQ 09:50 → EMR 10:00 → 4E 10:30 → EDBEDREQ 10:36 → 4E 06-07 05:58
DX: N17.9 Acute kidney failure, unspecified (principal); A41.81 Sepsis due to Enterococcus; E11.22 Type 2 diabetes mellitus with diabetic chronic kidney disease; Z94.83 Pancreas transplant status; N39.0 Urinary tract infection, site not specified; Z94.0 Kidney transplant status; I27.20 Pulmonary hypertension, unspecified; N18.3 Chronic kidney disease, stage 3 (moderate); N25.0 Renal osteodystrophy; E11.65 Type 2 diabetes mellitus with hyperglycemia; N13.39 Other hydronephrosis; N25.81 Secondary hyperparathyroidism of renal origin; D63.1 Anemia in chronic kidney disease; I12.9 Hypertensive chronic kidney disease with stage 1 through stage 4 chronic kidney disease, or unspecified chronic kidney disease; I25.10 Atherosclerotic heart disease of native coronary artery without angina pectoris; Z79.4 Long term (current) use of insulin; Z88.1 Allergy status to other antibiotic agents; Z95.5 Presence of coronary angioplasty implant and graft; E55.9 Vitamin D deficiency, unspecified; K29.70 Gastritis, unspecified, without bleeding; E78.00 Pure hypercholesterolemia, unspecified; E86.0 Dehydration; F32.9 Major depressive disorder, single episode, unspecified; I25.2 Old myocardial infarction; N40.1 Benign prostatic hyperplasia with lower urinary tract symptoms; R33.8 Other retention of urine; R31.9 Hematuria, unspecified
CPT/HCPCS: 36415; 71010; 76775; 80048; 80053; 80061; 81001; 82550; 82607; 82728; 82746; 82947; 82962; 82977; 83036; 83540; 83550; 83735; 83880; 84100; 84133; 84300; 84443; 84550; 85007; 85025; 85610; 85651; 85730; 86140; 86706; 86707; 86803; 87040; 87086; 87181; 89050; 93306; 93970; 94664; 99285; J1815; S5561

== ENCOUNTER 2017-08-06 19:33 | Inpatient (IN) | payer MEDICARE, MEDICAID ==
[~2017-08-06] VITALS: Ht 172.7 cm; Wt 94.8 kg
[2017-08-06 01:00] VITALS: BP 167/89
[~2017-08-06 19:33] MED LIST changes: +CRANBERRY450 M4 PO; +FINASTERIDE5 MG ORAL; +INVANZ1 GM IVPB; +NOVOLOG SS; +NOVOLOG100 UNITS1 SQ; +OMEPRAZOLE40 M1 ORAL; +TAMSULOSIN HCL0.4 MG ORAL; +ZYVOX600 MG/300 IVPB
[2017-08-06 20:23] LABS: HEMOGLOBIN 10.9 G/DL (14.2-18.0); MEAN CORPUSCULAR VOLUME 100 FL (80-99); PLATELET COUNT 264 K/UL (150-450); RED BLOOD COUNT 3.48 M/UL (4.70-6.10); WHITE BLOOD COUNT 11.6 K/UL (4.8-10.8)
[2017-08-06 20:25] LABS: BASOPHILS % (AUTO) 0.6 % (0.0-2.0); EOSINOPHILS % (AUTO) 0.3 % (0.0-3.0); LYMPHOCYTES % (AUTO) 4.9 % (20.0-45.0); MONOCYTES % (AUTO) 4.7 % (1.0-10.0); NEUTROPHILS % (AUTO) 89.6 % (45.0-75.0)
[2017-08-06 20:48] LABS: ALANINE AMINOTRANSFERASE 20 U/L (12-78); ALBUMIN 3.4 G/DL (3.4-5.0); ALBUMIN/GLOBULIN RATIO 0.9 (1.0-2.7); ALKALINE PHOSPHATASE 99 U/L (46-116); ANION GAP 15 mmol/L (5-15); ASPARTATE AMINO TRANSFERASE 20 U/L (15-37); BILIRUBIN,TOTAL 0.3 MG/DL (0.2-1.0); BLOOD UREA NITROGEN 74 mg/dL (7-18); CALCIUM 8.9 MG/DL (8.5-10.1); CARBON DIOXIDE 18 MMOL/L (21-32); CHLORIDE 103 MMOL/L (98-107); CREATININE 5.3 MG/DL (0.55-1.30); POTASSIUM 4.5 MMOL/L (3.5-5.1); SODIUM 136 MMOL/L (136-145)
[2017-08-06 21:30] VITALS: BP 156/87
[2017-08-06] MEDS ORDERED: Albuterol/Ipratropium 3ml neb HHN PRN (22:45)
[2017-08-06] MEDS ORDERED: Ketorolac 30mg Inj IV PRN (22:45)
[2017-08-06] MEDS ORDERED: Morphine Sulfate 2mg/ml Inj IVP PRN (22:45)
[2017-08-06] MEDS ORDERED: Mylanta II UD 30ml ORAL PRN (22:45)
[2017-08-06] MEDS ORDERED: Miralax 17gm pkt ORAL PRN (22:45)
[2017-08-06] MEDS ORDERED: Nitroglycerin Subl 0.4mg tab SL PRN (22:45)
[2017-08-06 22:48] LABS: APPEARANCE,URINE SLIGHTLY CLOUDY; BILIRUBIN, URINE NEGATIVE (NEGATIVE); COLOR,URINE PALE YELLOW; GLUCOSE, URINE (UA) 4+ (NEGATIVE); KETONES,URINE NEGATIVE (NEGATIVE); LEUKOCYTE ESTERASE ,URINE 3+ (NEGATIVE); NITRITE,URINE NEGATIVE (NEGATIVE); PH,URINE 7 (4.5-8.0); PROTEIN,URINE 2+ (NEGATIVE); UROBILINOGEN,URINE NORMAL MG/DL (0.0-1.0)
[2017-08-06 23:13] VITALS: BP 158/70
--- NOTE | 2017-08-06 23:18 | Emergency Room Report ---
History of Present Illness General Chief Complaint: Abnormal Labs Source: Medical Record Present Illness HPI Patient is a 62 year-old male brought in by EMS after abnormal blood sugar. Patient had been noted to have prior history of renal transplant and had been given insulin at his [facility]. Patient was noted to have continued elevated blood sugar and was sent to hospital for further evaluation and treatment. Patient was noted to have prior hx of DNR and had previously expressed wishes not to have dialysis. Allergies: Coded Allergies: CEFEPIME (Verified Allergy, Intermediate, Rash, 01/23/13) Patient History Past Medical History: see triage record Reviewed Nursing Documentation: PMH: Agreed, PSxH: Agreed Nursing Documentation-PMH Past Medical History: No History, Except For Hx Cardiac Problems: No Hx Hypertension: Yes Hx Pacemaker: No Hx Asthma: Yes Hx Diabetes: Yes - CKD Hx Cancer: No Hx Neurological Problems: No Hx Cerebrovascular Accident: Yes Hx Transient Ischemic Attacks: No Hx Dementia: No Hx Alzheimer's Disease: No Hx Parkinson's Disease: No Hx Meningitis: No Hx Encephalitis: Yes - 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 ATTEMPT Hx Seizures: No Hx Epilepsy: No Hx Multiple Sclerosis: No Hx Cerebral Palsy: No Hx Amyotrophic Lat Sclerosis: No Hx Guillian-Buxton Syndrome: No Hx Paralysis: No Hx Peripheral Neuropathy: No Hx Spinal Cord Injury: No Hx Head Trauma: No Hx Traumatic Brain Injury: No Hx Memory Loss: No Hx Concentration Difficulty: No Hx Speech Problem: No Hx Tremors: No Hx Vertigo: No Hx Dizziness: Yes Hx Syncope: No Hx Headaches: No Hx Aphasia: No Hx Dysphasia: No Hx Numbness: No Hx Weakness: No Hx Fatigue: No Hx Neurologic Surgery: No Hx Brain Shunt: No Review of Systems All Other Systems: limited - by mental status Physical Exam Vital Signs Date Time Temp Pulse Resp B/P (MAP) Pulse Ox O2 Delivery O2 Flow Rate FiO2 08/06/17 19:27 98.1 86 18 162/98 99 Room Air Sp02 EP Interpretation: reviewed, normal General Appearance: normal inspection, well appearing, no apparent distress, alert, non-toxic, other - GCS14 Head: normocephalic, atraumatic Eyes: bilateral eye abnormal EOM ENT: normal ENT inspection, hearing grossly normal, normal voice Neck: normal inspection, full range of motion, supple, no bony tend Respiratory: normal inspection, lungs clear, normal breath sounds, no respiratory distress, no retraction, no wheezing Cardiovascular #1: regular rate, rhythm, no edema Gastrointestinal: normal inspection, normal bowel sounds, non tender, soft, no guarding, no hernia Genitourinary: no CVA tenderness Musculoskeletal: normal inspection, back normal, normal range of motion Neurologic: normal inspection, alert, responsive, mangle operator garments III-XII nml as tested, speech normal Psychiatric: normal inspection, mood/affect normal Skin: normal inspection, normal color, no rash Medical Decision Making Diagnostic Impression: Primary Impression: Acute on chronic renal failure Additional Impression: Uncontrolled diabetes mellitus ER Course Patient presented for high blood sugar. Differential diagnosis included but was not limited to diabetic ketoacidosis, nonketotic hyperosmolar coma, infection, among others. Patient reports having some upper respiratory symptoms. Patient was given insulin and IV fluids. Laboratory testing was notable for elevated blood sugar and marked elevation of the BUN and creatinine consistent with acute on chronic kidney disease. Patient was discussed with Dr. Rosado for inpatient management due to primary care physician. Labs Test 08/06/17 19:55 08/06/17 22:02 08/07/17 06:05 Troponin I 0.002 ng/mL (0.000-0.056) Urine Color Pale yellow Urine Appearance Slightly cloudy Urine pH 7 (4.5-8.0) Urine Specific [place] 1.005 (1.005-1.035) Urine Protein 2+ (NEGATIVE) Urine Glucose (UA) 4+ (NEGATIVE) Urine Ketones Negative (NEGATIVE) Urine Occult Blood 5+ (NEGATIVE) Urine Nitrite Negative (NEGATIVE) Urine Bilirubin Negative (NEGATIVE) Urine Urobilinogen Normal MG/DL (0.0-1.0) Urine Leukocyte Esterase 3+ (NEGATIVE) Urine RBC Tntc /HPF (0 - 0) Urine WBC 2-4 /HPF (0 - 0) Urine Squamous Epithelial Cells None /LPF (NONE/OCC) Urine Bacteria None /HPF (NONE) White Blood Count 12.4 K/UL (4.8-10.8) Red Blood Count 3.25 M/UL (4.70-6.10) Hemoglobin 10.2 G/DL (14.2-18.0) Hematocrit 32.6 % (42.0-52.0) Mean Corpuscular Volume 100 FL (80-99) Mean Corpuscular Hemoglobin 31.5 PG (27.0-31.0) Mean Corpuscular Hemoglobin Concent 31.4 G/DL (32.0-36.0) Red Cell Distribution Width 14.7 % (11.6-14.8) Platelet Count 230 K/UL (150-450) Mean Platelet Volume 5.9 FL (6.5-10.1) Neutrophils (%) (Auto) 80.5 % (45.0-75.0) Lymphocytes (%) (Auto) 12.3 % (20.0-45.0) Monocytes (%) (Auto) 6.4 % (1.0-10.0) Eosinophils (%) (Auto) 0.2 % (0.0-3.0) Basophils (%) (Auto) 0.5 % (0.0-2.0) Sodium Level 134 MMOL/L (136-145) Potassium Level 5.0 MMOL/L (3.5-5.1) Chloride Level 101 MMOL/L (98-107) Carbon Dioxide Level 15 MMOL/L (21-32) Anion Gap 18 mmol/L (5-15) Blood Urea Nitrogen 69 mg/dL (7-18) Creatinine 4.8 MG/DL (0.55-1.30) Estimat Glomerular Filtration Rate 12.3 mL/min (>60) Glucose Level 492 MG/DL (74-106) Hemoglobin A1c 7.1 % (4.3-6.0) Calcium Level 8.8 MG/DL (8.5-10.1) Total Bilirubin 0.6 MG/DL (0.2-1.0) Aspartate Amino Transf (AST/SGOT) 15 U/L (15-37) Alanine Aminotransferase (ALT/SGPT) 19 U/L (12-78) Alkaline Phosphatase 92 U/L (46-116) Total Protein 6.6 G/DL (6.4-8.2) Albumin 3.2 G/DL (3.4-5.0) Globulin 3.4 g/dL Albumin/Globulin Ratio 0.9 (1.0-2.7) Triglycerides Level 114 MG/DL (30-150) Cholesterol Level 117 MG/DL (< 200) LDL Cholesterol 67 mg/dL (<100) HDL Cholesterol 33 MG/DL (40-60) Cholesterol/HDL Ratio 3.5 (3.3-4.4) Thyroid Stimulating Hormone (TSH) 1.791 uiU/mL (0.358-3.740) Last Vital Signs Date Time Temp Pulse Resp B/P (MAP) Pulse Ox O2 Delivery O2 Flow Rate FiO2 08/06/17 23:13 97.8 72 22 158/70 99 Room Air Status: unchanged Disposition: ADMITTED INPATIENT Condition: Serious Referrals: Christopher Rosado MD (PCP) Gordy Breen Aug 06, 2017 23:18
[2017-08-07 01:00] VITALS: BP 167/89
[2017-08-07 04:15] VITALS: BP 177/87
[2017-08-07] MEDS: NovoLOG Insulin Flexpen SUBQ SCH ×4 (06:01→20:47)
[2017-08-07 06:57] LABS: BASOPHILS % (AUTO) 0.5 % (0.0-2.0); EOSINOPHILS % (AUTO) 0.2 % (0.0-3.0); HEMATOCRIT 32.6 % (42.0-52.0); HEMOGLOBIN 10.2 G/DL (14.2-18.0); LYMPHOCYTES % (AUTO) 12.3 % (20.0-45.0); MEAN CORPUSCULAR VOLUME 100 FL (80-99); MONOCYTES % (AUTO) 6.4 % (1.0-10.0); NEUTROPHILS % (AUTO) 80.5 % (45.0-75.0); PLATELET COUNT 230 K/UL (150-450); RED BLOOD COUNT 3.25 M/UL (4.70-6.10); RED CELL DISTRIBUTION WIDTH 14.7 % (11.6-14.8); WHITE BLOOD COUNT 12.4 K/UL (4.8-10.8)
[2017-08-07 07:11] LABS: ALANINE AMINOTRANSFERASE 19 U/L (12-78); ALBUMIN 3.2 G/DL (3.4-5.0); ALBUMIN/GLOBULIN RATIO 0.9 (1.0-2.7); ALKALINE PHOSPHATASE 92 U/L (46-116); ANION GAP 18 mmol/L (5-15); ASPARTATE AMINO TRANSFERASE 15 U/L (15-37); BILIRUBIN,TOTAL 0.6 MG/DL (0.2-1.0); BLOOD UREA NITROGEN 69 mg/dL (7-18); CALCIUM 8.8 MG/DL (8.5-10.1); CARBON DIOXIDE 15 MMOL/L (21-32); CHLORIDE 101 MMOL/L (98-107); CHOLESTEROL 117 MG/DL (< 200); CREATININE 4.8 MG/DL (0.55-1.30); HDL CHOLESTEROL 33 MG/DL (40-60); SODIUM 134 MMOL/L (136-145); TRIGLYCERIDES 114 MG/DL (30-150)
[2017-08-07 07:53] VITALS: BP 171/87
--- NOTE | 2017-08-07 08:41 | Consultation ---
History of Present Illness General Date patient seen: Aug 07, 2017 Chief Complaint: Abnormal Labs Present Illness HPI 62 yo gentle man with pmhx renal osteodystrophy status post renal pancreatic transplant, DM, DNR, hx of psychiatric disorder. Brought in from [facility] for uncontrolled diabetes. He is agitated at times and needed a sitter. Allergies: Coded Allergies: CEFEPIME (Verified Allergy, Intermediate, Rash, 01/23/13) Medication History Scheduled Amlodipine Besylate (Norvasc), 5 MG ORAL DAILY, (Reported) Aspirin* (Aspirin*), 81 MG ORAL DAILY Atorvastatin Calcium* (Lipitor*), 10 MG ORAL BEDTIME Atorvastatin Calcium* (Lipitor*), 10 MG ORAL BEDTIME, (Reported) Azathioprine (Azathioprine), 50 MG ORAL DAILY Azathioprine* (Imuran*), 50 MG PO DAILY, (Reported) Cholecalciferol (Vitamin D3)* (Vitamin D*), 5,000 INTLU ORAL Mo@09 Cranberry Fruit Concentrate (Cranberry), 450 MG PO DAILY, (Reported) Docusate Sodium* (Colace*), 100 MG ORAL TWICE A DAY Doxycycline Hyclate (Doxycycline Hyclate), 100 MG PO BID Duloxetine Hcl* (Cymbalta*), 30 MG ORAL DAILY, (Reported) Epoetin Jose (Epogen), 10,000 UNIT SUBQ THREE TIMES A WEEK, (Reported) Ertapenem Sodium* (INVanz*), 1 GM IVPB Q24H, (Reported) Ferrous Sulfate* (Ferrous Sulfate*), 325 MG ORAL DAILY, (Reported) Finasteride (Finasteride), 5 MG ORAL DAILY Insulin Aspart (Novolog Flexpen), 10 UNITS SUBQ NOVOTIAC Insulin Aspart (Novolog Flexpen), 0 UNITS SUBQ BEFORE MEALS AND HS Insulin Aspart (Novolog Flexpen), 5 SQ AC, (Reported) Insulin Detemir (Levemir Flexpen), 15 UNITS SUBQ BID Insulin Glargine (Lantus), 6 SUBQ BID, (Reported) Insulin Glargine (Lantus), 10 SUBQ DAILY, (Reported) Insulin Glargine (Lantus), 6 SUBQ BEDTIME, (Reported) Insulin Lispro (Humalog), 4 SUBQ AC, (Reported) Linezolid (Zyvox), 600 MG IVPB EVERY 12 HOURS, (Reported) Metoprolol Succinate* (Metoprolol Succinate*), 50 MG ORAL Q12HR, (Reported) Omeprazole (Omeprazole), 40 MG ORAL DAILY, (Reported) Pantoprazole* (Protonix*), 40 MG ORAL DAILY Polyethylene Glycol* (Miralax*), 17 GM ORAL BEDTIME Sevelamer Carbonate* (Renvela*), 800 MG ORAL THREE TIMES A DAY, (Reported) Sodium Citrate (Sod Citrate-Citric Acid Soln), 30 ML ORAL THREE TIMES A DAY Tamsulosin HCl (Flomax), 0.4 MG ORAL BID, (Reported) Tamsulosin Hcl (Tamsulosin Hcl*), 0.4 MG ORAL BEDTIME Vit B Complex & C No.13/Fa/D3 (Nephrocaps Qt Tablet), 1 EACH PO DAILY, (Reported ) Vitamin D (Vitamin D3), 5,000 UNITS ORAL DAILY, (Reported) Warfarin Sod* (Coumadin*), 4 MG ORAL DAILY, (Reported) Scheduled PRN Acetaminophen (Acetaminophen), 650 MG ORAL Q6H PRN for Prn Headache/Temp > 101, (Reported) Ipratropium/Albuterol Sulfate (DuoNeb 0.5-3(2.5)mg/3ml), 3 ML HHN Q4HRT PRN for Shortness of Breath Ondansetron (Zofran), 4 MG ORAL Q6H PRN for Nausea & Vomiting, (Reported) [Warfarin RX monitoring], 1 EA MISC DAILY PRN for Per rx protocol Miscellaneous Medications Citric Acid/Sodium Citrate (Cytra-2 Oral Solution), 30 ML PO, (Reported) [Novolog ss], (Reported) Patient History Healthcare decision maker Resuscitation status Do Not Resuscitate Advanced Directive on File Yes Past Medical/Surgical History Past Medical/Surgical History: (1) Kidney transplant status (2) CAD (coronary artery disease) (3) HTN (hypertension) (4) Pulmonary HTN (5) CKD (chronic kidney disease), stage III Review of Systems All Other Systems: negative except mentioned in HPI Physical Exam General Appearance: WD/WN Lines, tubes and drains: peripheral HEENT: normocephalic, atraumatic Neck: non-tender, normal alignment Respiratory/Chest: chest wall non-tender, lungs clear Breasts: no masses Cardiovascular/Chest: normal peripheral pulses Abdomen: normal bowel sounds, non tender Genitourinary/Rectal: normal genital exam, normal rectal exam Extremities: normal range of motion Skin Exam: normal pigmentation Neurologic: brim blocker II-XII grossly normal Last 24 Hour Vital Signs Date Time Temp Pulse Resp B/P (MAP) Pulse Ox O2 Delivery O2 Flow Rate FiO2 08/07/17 07:53 100.4 86 20 171/87 87 Room Air 08/07/17 04:15 97.3 85 20 177/87 99 08/07/17 01:00 97.0 111 20 167/89 98 08/06/17 23:30 97.8 72 22 158/70 99 Room Air 08/06/17 23:13 97.8 72 22 158/70 99 Room Air 08/06/17 21:30 97.8 71 22 156/87 99 Room Air 08/06/17 19:27 98.1 86 18 162/98 99 Room Air Intake and Output 08/06/17 08/07/17 19:00 07:00 Intake Total 1400 ml Output Total 300 ml Balance 1100 ml Intake Oral 1000 ml IV Total 400 ml Output Urine Total 300 ml # Voids 1 Laboratory Tests Test 08/06/17 19:55 08/06/17 22:02 08/07/17 06:05 White Blood Count 11.6 K/UL (4.8-10.8) H 12.4 K/UL (4.8-10.8) H Red Blood Count 3.48 M/UL (4.70-6.10) L 3.25 M/UL (4.70-6.10) L Hemoglobin 10.9 G/DL (14.2-18.0) L 10.2 G/DL (14.2-18.0) L Hematocrit 35.0 % (42.0-52.0) L 32.6 % (42.0-52.0) L Mean Corpuscular Volume 100 FL (80-99) H 100 FL (80-99) H Mean Corpuscular Hemoglobin 31.3 PG (27.0-31.0) H 31.5 PG (27.0-31.0) H Mean Corpuscular Hemoglobin Concent 31.2 G/DL (32.0-36.0) L 31.4 G/DL (32.0-36.0) L Red Cell Distribution Width 15.0 % (11.6-14.8) H 14.7 % (11.6-14.8) Platelet Count 264 K/UL (150-450) 230 K/UL (150-450) Mean Platelet Volume 7.0 FL (6.5-10.1) 5.9 FL (6.5-10.1) L Neutrophils (%) (Auto) 89.6 % (45.0-75.0) H 80.5 % (45.0-75.0) H Lymphocytes (%) (Auto) 4.9 % (20.0-45.0) L 12.3 % (20.0-45.0) L Monocytes (%) (Auto) 4.7 % (1.0-10.0) 6.4 % (1.0-10.0) Eosinophils (%) (Auto) 0.3 % (0.0-3.0) 0.2 % (0.0-3.0) Basophils (%) (Auto) 0.6 % (0.0-2.0) 0.5 % (0.0-2.0) Sodium Level 136 MMOL/L (136-145) 134 MMOL/L (136-145) L Potassium Level 4.5 MMOL/L (3.5-5.1) 5.0 MMOL/L (3.5-5.1) Chloride Level 103 MMOL/L (98-107) 101 MMOL/L (98-107) Carbon Dioxide Level 18 MMOL/L (21-32) L 15 MMOL/L (21-32) L Anion Gap 15 mmol/L (5-15) 18 mmol/L (5-15) H Blood Urea Nitrogen 74 mg/dL (7-18) H 69 mg/dL (7-18) H Creatinine 5.3 MG/DL (0.55-1.30) H 4.8 MG/DL (0.55-1.30) H Estimat Glomerular Filtration Rate 11.0 mL/min (>60) 12.3 mL/min (>60) Glucose Level 503 MG/DL (74-106) *H 492 MG/DL (74-106) H Calcium Level 8.9 MG/DL (8.5-10.1) 8.8 MG/DL (8.5-10.1) Total Bilirubin 0.3 MG/DL (0.2-1.0) 0.6 MG/DL (0.2-1.0) Aspartate Amino Transf (AST/SGOT) 20 U/L (15-37) 15 U/L (15-37) Alanine Aminotransferase (ALT/SGPT) 20 U/L (12-78) 19 U/L (12-78) Alkaline Phosphatase 99 U/L (46-116) 92 U/L (46-116) Troponin I 0.002 ng/mL (0.000-0.056) Total Protein 7.1 G/DL (6.4-8.2) 6.6 G/DL (6.4-8.2) Albumin 3.4 G/DL (3.4-5.0) 3.2 G/DL (3.4-5.0) L Globulin 3.7 g/dL 3.4 g/dL Albumin/Globulin Ratio 0.9 (1.0-2.7) L 0.9 (1.0-2.7) L Urine Color Pale yellow Urine Appearance Slightly cloudy Urine pH 7 (4.5-8.0) Urine Specific [place] 1.005 (1.005-1.035) Urine Protein 2+ (NEGATIVE) H Urine Glucose (UA) 4+ (NEGATIVE) H Urine Ketones Negative (NEGATIVE) Urine Occult Blood 5+ (NEGATIVE) H Urine Nitrite Negative (NEGATIVE) Urine Bilirubin Negative (NEGATIVE) Urine Urobilinogen Normal MG/DL (0.0-1.0) Urine Leukocyte Esterase 3+ (NEGATIVE) H Urine RBC Tntc /HPF (0 - 0) H Urine WBC 2-4 /HPF (0 - 0) Urine Squamous Epithelial Cells None /LPF (NONE/OCC) Urine Bacteria None /HPF (NONE) Hemoglobin A1c 7.1 % (4.3-6.0) H Triglycerides Level 114 MG/DL (30-150) Cholesterol Level 117 MG/DL (< 200) LDL Cholesterol 67 mg/dL (<100) HDL Cholesterol 33 MG/DL (40-60) L Cholesterol/HDL Ratio 3.5 (3.3-4.4) Thyroid Stimulating Hormone (TSH) 1.791 uiU/mL (0.358-3.740) Microbiology Date/Time Source Procedure Growth Status 08/06/17 19:55 Nasal Nares Influenza Types A,B Antigen (NIA) - Final Complete Height (Feet): 5 Height (Inches): 8.00 Weight (Pounds): 209 Medications Current Medications Medications (Trade) Dose Ordered Sig/Dunia Route PRN Reason Start Time Stop Time Status Last Admin Dose Admin Acetaminophen (Tylenol) 650 mg Q4H PRN ORAL fever 08/06/17 22:45 09/05/17 22:44 Al Hydroxide/Mg Hydroxide (Mylanta II) 30 ml Q6H PRN ORAL dyspepsia 08/06/17 22:45 09/05/17 22:44 Albuterol/ Ipratropium (Albuterol/ Ipratropium) 3 ml Q4H PRN HHN Shortness of Breath 08/06/17 22:45 08/11/17 22:44 Amlodipine Besylate (Norvasc) 5 mg DAILY ORAL 08/07/17 09:00 09/06/17 08:59 Atorvastatin Calcium (Lipitor) 10 mg BEDTIME ORAL 08/07/17 21:00 09/06/17 20:59 Azathioprine (Imuran) 50 mg DAILY ORAL 08/07/17 09:00 09/06/17 08:59 Clonidine HCl (Catapres Tab) 0.1 mg Q4H PRN ORAL sbp more than 160 08/06/17 22:45 09/05/17 22:44 Dextrose (Dextrose 50%) STAT PRN IV Hypoglycemia 08/06/17 22:45 09/05/17 22:44 Duloxetine HCl (Cymbalta) 30 mg DAILY ORAL 08/07/17 09:00 09/06/17 08:59 Finasteride (Proscar) 5 mg DAILY ORAL 08/07/17 09:00 09/06/17 08:59 Heparin Sodium (Porcine) (Heparin 5000 units/ml) 5,000 units EVERY 12 HOURS SUBQ 08/07/17 09:00 09/06/17 08:59 Insulin Aspart (NovoLOG) BEFORE MEALS AND HS SUBQ 08/07/17 06:30 09/06/17 06:29 08/07/17 06:01 Ketorolac Tromethamine (Toradol 30mg) 30 mg EVERY 6 HOURS PRN IV moderate pain 4-6 08/06/17 22:45 08/11/17 22:44 UNV Metoprolol Succinate (Toprol XL) 50 mg Q12HR ORAL 08/07/17 09:00 09/06/17 08:59 Morphine Sulfate (Morphine Sulfate) 2 mg Q4H PRN IVP severe pain 7-10 08/06/17 22:45 08/13/17 22:44 Nitroglycerin (Ntg) 0.4 mg Q5M X 3 DOSES PRN SL Prn Chest Pain 08/06/17 22:45 09/05/17 22:44 Ondansetron HCl (Zofran) 4 mg Q6H PRN IVP Nausea & Vomiting 08/06/17 22:45 09/05/17 22:44 Polyethylene Glycol (Miralax) 17 gm HSPRN PRN ORAL Constipation 08/06/17 22:45 09/05/17 22:44 Sevelamer Carbonate (Renvela) 800 mg TID@0800,1200,1700 ORAL 08/07/17 08:00 09/06/17 07:59 Sodium Chloride 1,000 ml @ 100 mls/hr Q10H IVLG 08/06/17 22:41 09/05/17 22:40 08/07/17 00:11 Tamsulosin HCl (Flomax) 0.4 mg BEDTIME ORAL 08/07/17 21:00 09/06/17 20:59 UNV Tamsulosin HCl (Flomax) 0.4 mg BID ORAL 08/07/17 09:00 09/06/17 08:59 UNV Temazepam (Restoril) 15 mg HSPRN PRN ORAL Insomnia 08/06/17 22:45 08/13/17 22:44 Assessment/Plan Problem List: (1) Uncontrolled diabetes mellitus ICD Codes: E11.65 - Type 2 diabetes mellitus with hyperglycemia SNOMED: 672515536 (2) Anemia in chronic kidney disease ICD Codes: D63.1 - Anemia in chronic kidney disease; N03.9 - Anemia in chronic kidney disease SNOMED: 196997801 (3) Psychiatric disturbance ICD Codes: F99 - Psychiatric disturbance SNOMED: 74708326 (4) Anemia ICD Codes: D64.9 - Anemia SNOMED: 190772481 (5) Renal transplant recipient ICD Codes: Z94.0 - Renal transplant recipient SNOMED: 897787716 Assessment/Plan sliding scale iv fluis check electrolytes check cultures psych evaluation MARGO GALLEGOS Aug 07, 2017 08:41
[2017-08-07] MEDS ORDERED: Metoprolol Succinate XL 50mg tab ORAL SCH (09:00)
[2017-08-07] MEDS: Renvela 800mg Pkt ORAL SCH ×3 (10:23→17:57)
[2017-08-07] MEDS: azaTHIOprine 50 MG TAB ORAL SCH (10:24)
[2017-08-07] MEDS: DULoxetine 30mg cap ORAL SCH (10:26)
[2017-08-07] MEDS: Heparin 5000 units/ml inj SUBQ SCH ×2 (10:33→20:48)
--- NOTE | 2017-08-07 11:39 | Consultation ---
Consult Note Consult Note ID DIC # [id number] HERNAN POLO M.D. Aug 07, 2017 11:39
[2017-08-07 11:46] VITALS: BP 169/82
[2017-08-07] MEDS: Aztreonam Inj 2 GM in D5W 110 ML IVPB SCH ×2 (13:55→20:45)
--- NOTE | 2017-08-07 14:33 | History & Physical ---
History and Physical History & Physicial Dictated for Int Med-Dr Rosado no. [id number]. DEE MAHER Aug 07, 2017 14:33
[2017-08-07] MEDS: DAPTOmycin 500 MG in NS 55 ML IV SCH (15:14)
[2017-08-07 16:21] VITALS: BP 115/53
--- NOTE | 2017-08-07 19:15 | Consultation ---
DATE OF CONSULTATION: 08/07/2017 INFECTIOUS DISEASES CONSULTATION CONSULTING PHYSICIAN: Rich Wick M.D. REQUESTING PHYSICIAN: Esdras Delgado M.D. REASON FOR CONSULTATION: Evaluation of fever, leukocytosis, possible sepsis, and antibiotic management. HISTORY OF PRESENT ILLNESS: The patient is a 62-year-old male, poor historian with history of psychiatric disorder, who has been admitted to this medical center due to psychiatric disorder. The patient was found to have low-grade fever and leukocytosis. Infectious Disease consultation has been requested for further evaluation of the patient and antibiotic management. PAST MEDICAL HISTORY: Significant for: 1. Diabetes. 2. History of suicidal attempts in the past. 3. History of myocardial infarction. 4. History of anemia. 5. History of colon polyps. 6. History of renal and pancreas transplant about 10 years ago. 7. History of end-stage on hemodialysis in the past; however, since transplantation, the patient has been off of antibiotics. 8. History of enterococcus bacteremia back in May. 9. Chest x-ray shows right PICC line from outside facility? duration and ? time of placement. MEDICATIONS: Currently off of antibiotics. ALLERGIES: Cefepime. FAMILY HISTORY: Noncontributory. SOCIAL HISTORY: The patient is in senior care. REVIEW OF SYSTEMS: Limited, much of the information I was able gather as mentioned above. PHYSICAL EXAMINATION: VITAL SIGNS: Temperature 100.4 degrees and blood pressure 171/87. HEENT: No pale conjunctivae. No icterus. CHEST: Clear. HEART: S1 and S2. ABDOMEN: Soft, obese, nontender. EXTREMITIES: The patient has a right PICC line placed. NEUROLOGIC: Awake and alert. SKIN: The patient has scattered scratch velasquez on the upper and lower extremities. LABORATORY DATA: White blood cells 12, hemoglobin 10, platelets 230. UA shows too numerous to count red blood cells, 2 to 4 white blood cells. BUN 67 and creatinine 4.8. Liver function tests are unremarkable. Rapid influenza negative for A and B. Blood culture is pending. ASSESSMENT: The patient is a 62-year-old male with: 1. Low-grade fever. 2. Leukocytosis. 3. Uncontrolled diabetes, probably due to sepsis. 4. Probable sepsis. 5. Right peripherally inserted central catheter line infection. 6. Rule out urinary tract infection in view of the patient having persistent hematuria. 7. 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 PLAN: 1. We will the patient on IV daptomycin and Azactam. 2. Monitor CBC. 3. Monitor BMP. 4. Monitor cultures (blood and urine). 5. Check serial amylase for evaluation of chronic pancreatic rejection. 6. Based on the patient's laboratories and cultures, we will do further recommendations. Thank you, Dr. Delgado, for allowing me to participate in the care of this patient. I will follow the patient with you during this hospitalization. Rich Wick M.D. DR: Zaida JOB#: [id number] CC:
[2017-08-07 20:00] VITALS: BP 118/56
[2017-08-07] MEDS: Dyna-Hex 2% Top Sol 2oz TOPIC SCH (20:45)
[2017-08-07] MEDS: Tamsulosin 0.4mg cap ORAL SCH (20:45)
[2017-08-07] MEDS: Metoprolol Tartrate 50mg tab ORAL SCH (20:46)
[2017-08-07] MEDS ORDERED: Tamsulosin 0.4mg cap ORAL SCH (21:00)
[2017-08-08] VITALS: BP 120/49
--- NOTE | 2017-08-08 00:32 | History and Physical Report ---
DATE OF ADMISSION: 08/06/2017 CHIEF COMPLAINT: The patient is a 62-year-old white male with history of insulin-dependent diabetes who presents with complaint of hyperglycemia. HISTORY OF PRESENT ILLNESS: The patient was admitted to [facility] in May 2017. Please see history and physical and discharge summary dictated at that time. The patient is a resident of [facility]. According to staff at [facility], the patient's blood sugar was elevated. The patient was transferred to [facility] emergency room. The patient was found to have venous blood glucose of 503. The patient is admitted for hyperglycemia, to rule out diabetic ketoacidosis. PAST MEDICAL HISTORY: Significant for: 1. Insulin-dependent diabetes. 2. Chronic renal failure, stage 4. 3. Anemia. 4. Renal osteodystrophy. 5. Secondary hyperparathyroidism. 6. Gastritis. 7. Coronary artery disease, status post stent placement in 2007. 8. Non-ST elevated myocardial infarction x3. 9. Hypertension. 10. Benign prostatic hypertrophy. 11. Left eye blindness. 12. Hypercholesterolemia. 13. Major depression, status post suicide attempt in 2012 with insulin overdose. PAST SURGICAL HISTORY: 1. Significant for renal/pancreatic transplant in 1987, status post rejection. 2. Bilateral nephrectomy in 2014. 3. Left eye prosthesis. CURRENT MEDICATIONS: 1. Coumadin 7 mg by p.o. daily. 2. Cymbalta 30 mg p.o. daily. 3. Lantus insulin 10 units subcutaneously every morning. 4. Lantus insulin 6 units subcutaneously nightly. 5. NovoLog insulin sliding scale. 6. Aspirin 81 mg p.o. daily. 7. Imuran 50 mg p.o. daily. 8. Vitamin D3 5000 units orally daily. 9. Sodium citrate/citric acid 500/334 mg one tablet p.o. four times daily. 10. Iron sulfate 325 mg p.o. daily. 11. Metoprolol 50 mg p.o. twice daily. 12. Norvasc 5 mg p.o. daily. 13. Procrit 10,000 units subcutaneously three times weekly. 14. Shilpa-Enedina one tablet p.o. daily. 15. Omeprazole 40 mg p.o. daily. 16. Sevelamer carbonate 800 mg p.o. three times daily. 17. Tylenol 650 mg p.o. q.4 h. p.r.n. ALLERGIES: To cefepime. SOCIAL HISTORY: The patient is a resident of [facility]. The patient is single. The patient denies tobacco or alcohol use. PHYSICAL EXAMINATION: VITAL SIGNS: Temperature 97.3 degrees, respirations 20, blood pressure 177/87, pulse 85. GENERAL: The patient is a well-developed and well-nourished white male, in no apparent distress. HEENT: Eyes, pupils are equal and responsive to light and accommodation. Extraocular movements are intact. NECK: Supple without lymphadenopathy. CHEST: Lungs are clear to auscultation bilaterally without wheezes or rales. CARDIOVASCULAR: Regular rhythm and rate. S1 and S2 normal without murmurs, rubs, or gallops. ABDOMEN: Soft, nontender, and nondistended. Positive bowel sounds. No evidence of hepatosplenomegaly. Currently, no rebound or guarding noted. EXTREMITIES: Negative for clubbing, cyanosis, or edema. RECTAL: Refused. GENITAL: Refused. NEUROLOGICAL: Cranial nerves II through XII were grossly intact without focal deficits. Motor strength is 5/5 bilaterally. Deep tendon reflexes are 2+ plantar. LABORATORY STUDIES: WBC 11.6, hemoglobin 10.9, hematocrit 35.0, and platelets 264,000. Sodium 136, potassium 4.5, chloride 103, CO2 18, BUN 74, creatinine 5.3, glucose 503. Troponin 0.002. Urinalysis showed 5+ occult blood with RBCs too numerous to count and 3+ leukocyte esterase. ASSESSMENT: This is a 62-year-old white male: 1. Hyperglycemia. 2. Diabetes type 2. 3. Anemia. 4. Chronic renal failure. 5. Secondary hyperparathyroidism. 6. Gastritis. 7. Coronary artery disease. 8. Hypertension. 9. Benign prostatic hypertrophy. 10. Left eye blindness. 11. Hypercholesterolemia. 12. Major depression. TREATMENT: 1. Hyperglycemia/diabetes type 2. Continue Lantus as above. A NovoLog sliding scale has been instituted. 2. Anemia of chronic renal disease. 3. Chronic renal failure, status post failed renal transplant. 4. Secondary hyperparathyroidism. 5. Gastritis. Continue omeprazole as above. 6. Coronary artery disease. Continue aspirin as above. 7. Hypertension. Continue metoprolol and Norvasc as above. 8. Benign prostatic hypertrophy. 9. Left eye blindness. 10. Hypercholesteremia. 11. Major depression. Continue Cymbalta as above. Jose Glasgow M.D. DR: Teresa JOB#: [id number] CC:
[2017-08-08 04:00] VITALS: BP 122/57
[2017-08-08] MEDS: Aztreonam Inj 2 GM in D5W 110 ML IVPB SCH ×3 (05:22→20:32)
[2017-08-08] MEDS: NovoLOG Insulin Flexpen SUBQ SCH ×7 (05:24→20:32)
[2017-08-08] MEDS: Renvela 800mg Pkt ORAL SCH ×3 (07:53→17:24)
[2017-08-08] MEDS: azaTHIOprine 50 MG TAB ORAL SCH (07:53)
[2017-08-08] MEDS: DULoxetine 30mg cap ORAL SCH (07:54)
[2017-08-08 08:00] VITALS: BP 118/70
--- NOTE | 2017-08-08 08:02 | General Progress Note ---
Assessment/Plan Problem List: (1) ESRD (end stage renal disease) ICD Codes: N18.6 - End stage renal disease SNOMED: 76991566 (2) History of simultaneous kidney and pancreas transplant ICD Codes: Z94.0 - History of simultaneous kidney and pancreas transplant; Z94.83 - Pancreas transplant status SNOMED: 387686688 (3) Uncontrolled diabetes mellitus ICD Codes: E11.65 - Type 2 diabetes mellitus with hyperglycemia SNOMED: 930370131 Assessment/Plan glucose values elevated as he is not on scheduled insulin start Levemir 12 units bid start Novolog 8 units ac tid continue NISS Subjective Allergies: Coded Allergies: CEFEPIME (Verified Allergy, Intermediate, Rash, 01/23/13) All Systems: reviewed and negative except above Subjective feeling better having breakfast appetite is good in good spirit Objective Last 24 Hour Vital Signs Date Time Temp Pulse Resp B/P (MAP) Pulse Ox O2 Delivery O2 Flow Rate FiO2 08/08/17 04:00 97.1 72 20 122/57 98 08/08/17 00:00 97.1 65 20 120/49 96 08/08/17 00:00 96 Room Air 08/07/17 20:46 58 118/56 08/07/17 20:22 98 Room Air 08/07/17 20:00 97.7 58 20 118/56 98 08/07/17 16:21 98.2 60 20 115/53 97 08/07/17 11:55 98.6 08/07/17 11:46 98.6 75 20 169/82 98 08/07/17 10:25 171/87 08/07/17 10:24 86 171/87 08/07/17 10:24 86 171/87 Intake and Output 08/07/17 08/08/17 19:00 07:00 Intake Total 1875 ml 1320 ml Output Total 600 ml Balance 1275 ml 1320 ml Intake Oral 810 ml IV Total 1065 ml 1320 ml Output Urine Total 600 ml # Voids 2 # Bowel Movements 1 Height (Feet): 5 Height (Inches): 8.00 Weight (Pounds): 209 General Appearance: no apparent distress Neck: normal alignment Cardiovascular: normal rate Respiratory/Chest: lungs clear Abdomen: normal bowel sounds Edema: 1+ Arm (L), 1+ Arm (R), 1+ Leg (L), 1+ Leg (R), 1+ Pedal (L), 1+ Pedal ( R), 1+ Generalized Objective Current Medications Medications (Trade) Dose Ordered Sig/Dunia Route PRN Reason Start Time Stop Time Status Last Admin Dose Admin Acetaminophen (Tylenol) 650 mg Q4H PRN ORAL fever 08/06/17 22:45 09/05/17 22:44 08/07/17 10:56 Al Hydroxide/Mg Hydroxide (Mylanta II) 30 ml Q6H PRN ORAL dyspepsia 08/06/17 22:45 09/05/17 22:44 Albuterol/ Ipratropium (Albuterol/ Ipratropium) 3 ml Q4H PRN HHN Shortness of Breath 08/06/17 22:45 08/11/17 22:44 Amlodipine Besylate (Norvasc) 5 mg DAILY ORAL 08/07/17 09:00 09/06/17 08:59 08/07/17 10:24 Atorvastatin Calcium (Lipitor) 10 mg BEDTIME ORAL 08/07/17 21:00 09/06/17 20:59 08/07/17 20:45 Azathioprine (Imuran) 50 mg DAILY ORAL 08/07/17 09:00 09/06/17 08:59 08/07/17 10:24 Aztreonam 2 gm/ Dextrose 110 ml @ 220 mls/hr Q8HR IVPB 08/07/17 14:00 08/14/17 13:59 08/08/17 05:22 Chlorhexidine Gluconate (Eloisa-Hex 2%) 1 applic DAILY@2000 TOPIC 08/07/17 20:00 09/06/17 19:59 08/07/17 20:45 Clonidine HCl (Catapres Tab) 0.1 mg Q4H PRN ORAL sbp more than 160 08/06/17 22:45 09/05/17 22:44 08/07/17 10:25 Daptomycin 500 mg/ Sodium Chloride 55 ml @ 110 mls/hr Q48H IV 08/07/17 14:00 08/14/17 13:59 08/07/17 15:14 Dextrose (Dextrose 50%) STAT PRN IV Hypoglycemia 08/06/17 22:45 09/05/17 22:44 Duloxetine HCl (Cymbalta) 30 mg DAILY ORAL 1/27/18 09:00 09/06/17 08:59 08/07/17 10:26 Finasteride (Proscar) 5 mg DAILY ORAL 08/07/17 09:00 09/06/17 08:59 08/07/17 10:23 Heparin Sodium (Porcine) (Heparin 5000 units/ml) 5,000 units EVERY 12 HOURS SUBQ 08/07/17 09:00 09/06/17 08:59 08/07/17 20:48 Insulin Aspart (NovoLOG) BEFORE MEALS AND HS SUBQ 08/07/17 06:30 09/06/17 06:29 08/08/17 05:24 Metoprolol Tartrate (Lopressor) 50 mg Q12HR ORAL 08/07/17 21:00 09/06/17 20:59 Morphine Sulfate (Morphine Sulfate) 2 mg Q4H PRN IVP severe pain 7-10 08/06/17 22:45 08/13/17 22:44 Nitroglycerin (Ntg) 0.4 mg Q5M X 3 DOSES PRN SL Prn Chest Pain 08/06/17 22:45 09/05/17 22:44 Ondansetron HCl (Zofran) 4 mg Q6H PRN IVP Nausea & Vomiting 08/06/17 22:45 09/05/17 22:44 Polyethylene Glycol (Miralax) 17 gm HSPRN PRN ORAL Constipation 08/06/17 22:45 09/05/17 22:44 Sevelamer Carbonate (Renvela) 800 mg TID@0800,1200,1700 ORAL 08/07/17 08:00 09/06/17 07:59 08/07/17 17:57 Sodium Chloride 1,000 ml @ 100 mls/hr Q10H IVLG 08/06/17 22:41 09/05/17 22:40 08/07/17 23:26 Tamsulosin HCl (Flomax) 0.4 mg Q12HR ORAL 08/07/17 21:00 09/06/17 20:59 08/07/17 20:45 Temazepam (Restoril) 15 mg HSPRN PRN ORAL Insomnia 08/06/17 22:45 08/13/17 22:44 Item Value Date Time Bedside Blood Glucose 441 mg/dl H 08/08/17 0613 Bedside Blood Glucose 73 mg/dl 08/07/17 2100 Bedside Blood Glucose 162 mg/dl H 08/07/17 1759 Bedside Blood Glucose 207 mg/dl H 08/07/17 1358 MALKA SHERIFF Aug 08, 2017 08:02
[2017-08-08] MEDS: Heparin 5000 units/ml inj SUBQ SCH ×2 (08:06→20:32)
[2017-08-08] MEDS: Tamsulosin 0.4mg cap ORAL SCH ×2 (08:07→20:31)
[2017-08-08] MEDS: Metoprolol Tartrate 50mg tab ORAL SCH ×2 (08:45→20:31)
[2017-08-08] MEDS: Levemir Flexpen SUBQ SCH ×2 (08:56→17:35)
--- NOTE | 2017-08-08 10:57 | Pulmonology Progress Note ---
Assessment/Plan Problems: (1) Uncontrolled diabetes mellitus (2) Anemia in chronic kidney disease (3) Psychiatric disturbance (4) Anemia (5) Renal transplant recipient Assessment/Plan check electrolytes all reviewed sliding scale iv fluids psych f/u diabetic diet Subjective ROS Limited/Unobtainable: No Constitutional: Reports: no symptoms HEENT: Repors: no symptoms Allergies: Coded Allergies: CEFEPIME (Verified Allergy, Intermediate, Rash, 01/23/13) Objective Last 24 Hour Vital Signs Date Time Temp Pulse Resp B/P (MAP) Pulse Ox O2 Delivery O2 Flow Rate FiO2 08/08/17 08:45 75 118/70 08/08/17 08:45 75 118/70 08/08/17 08:00 97.7 75 20 118/70 97 08/08/17 04:00 97.1 72 20 122/57 98 08/08/17 00:00 97.1 65 20 120/49 96 08/08/17 00:00 96 Room Air 08/07/17 20:46 58 118/56 08/07/17 20:22 98 Room Air 08/07/17 20:00 97.7 58 20 118/56 98 08/07/17 16:21 98.2 60 20 115/53 97 08/07/17 11:55 98.6 08/07/17 11:46 98.6 75 20 169/82 98 Intake and Output 08/07/17 08/08/17 19:00 07:00 Intake Total 1875 ml 1320 ml Output Total 600 ml Balance 1275 ml 1320 ml Intake Oral 810 ml IV Total 1065 ml 1320 ml Output Urine Total 600 ml # Voids 2 # Bowel Movements 1 General Appearance: WD/WN HEENT: normocephalic, atraumatic Respiratory/Chest: chest wall non-tender, lungs clear Cardiovascular: normal peripheral pulses, normal rate Genitourinary: normal external genitalia Extremities: no cyanosis Neurologic/Psychiatric: sign language teacher II-XII grossly normal, no motor/sensory deficits Lymphatic: no neck adenopathy Microbiology Date/Time Source Procedure Growth Status 08/06/17 20:30 Blood Blood Culture - Preliminary NO GROWTH AFTER 24 HOURS Resulted 08/06/17 20:30 Blood Blood Culture - Preliminary NO GROWTH AFTER 24 HOURS Resulted 08/06/17 19:55 Nasal Nares Influenza Types A,B Antigen (NIA) - Final Complete Laboratory Tests 08/08/17 06:00: Amylase Level 202H Current Medications Medications (Trade) Dose Ordered Sig/Dunia Route PRN Reason Start Time Stop Time Status Last Admin Dose Admin Acetaminophen (Tylenol) 650 mg Q4H PRN ORAL fever 08/06/17 22:45 09/05/17 22:44 08/07/17 10:56 Al Hydroxide/Mg Hydroxide (Mylanta II) 30 ml Q6H PRN ORAL dyspepsia 08/06/17 22:45 09/05/17 22:44 Albuterol/ Ipratropium (Albuterol/ Ipratropium) 3 ml Q4H PRN HHN Shortness of Breath 08/06/17 22:45 08/11/17 22:44 Amlodipine Besylate (Norvasc) 5 mg DAILY ORAL 08/07/17 09:00 09/06/17 08:59 08/07/17 10:24 Atorvastatin Calcium (Lipitor) 10 mg BEDTIME ORAL 08/07/17 21:00 09/06/17 20:59 08/07/17 20:45 Azathioprine (Imuran) 50 mg DAILY ORAL 08/07/17 09:00 09/06/17 08:59 08/08/17 07:53 Aztreonam 2 gm/ Dextrose 110 ml @ 220 mls/hr Q8HR IVPB 08/07/17 14:00 08/14/17 13:59 08/08/17 05:22 Chlorhexidine Gluconate (Eloisa-Hex 2%) 1 applic DAILY@2000 TOPIC 08/07/17 20:00 09/06/17 19:59 08/07/17 20:45 Clonidine HCl (Catapres Tab) 0.1 mg Q4H PRN ORAL sbp more than 160 08/06/17 22:45 09/05/17 22:44 08/07/17 10:25 Daptomycin 500 mg/ Sodium Chloride 55 ml @ 110 mls/hr Q48H IV 08/07/17 14:00 08/14/17 13:59 08/07/17 15:14 Dextrose (Dextrose 50%) STAT PRN IV Hypoglycemia 08/08/17 09:00 09/07/17 08:59 Duloxetine HCl (Cymbalta) 30 mg DAILY ORAL 08/07/17 09:00 09/06/17 08:59 08/08/17 07:54 Finasteride (Proscar) 5 mg DAILY ORAL 08/07/17 09:00 09/06/17 08:59 08/08/17 07:54 Heparin Sodium (Porcine) (Heparin 5000 units/ml) 5,000 units EVERY 12 HOURS SUBQ 08/07/17 09:00 09/06/17 08:59 08/08/17 08:06 Insulin Aspart (NovoLOG) BEFORE MEALS AND HS SUBQ 08/07/17 06:30 09/06/17 06:29 08/08/17 05:24 Insulin Aspart (NovoLOG) 8 units NOVOTIAC SUBQ 08/08/17 09:00 09/07/17 08:59 08/08/17 10:15 Insulin Detemir (Levemir) 12 units BID SUBQ 08/08/17 09:00 09/07/17 08:59 08/08/17 08:56 Metoprolol Tartrate (Lopressor) 50 mg Q12HR ORAL 08/07/17 21:00 09/06/17 20:59 Morphine Sulfate (Morphine Sulfate) 2 mg Q4H PRN IVP severe pain 7-10 08/06/17 22:45 08/13/17 22:44 Nitroglycerin (Ntg) 0.4 mg Q5M X 3 DOSES PRN SL Prn Chest Pain 08/06/17 22:45 09/05/17 22:44 Ondansetron HCl (Zofran) 4 mg Q6H PRN IVP Nausea & Vomiting 08/06/17 22:45 09/05/17 22:44 Polyethylene Glycol (Miralax) 17 gm HSPRN PRN ORAL Constipation 08/06/17 22:45 09/05/17 22:44 Sevelamer Carbonate (Renvela) 800 mg TID@0800,1200,1700 ORAL 08/07/17 08:00 09/06/17 07:59 08/08/17 07:53 Sodium Chloride 1,000 ml @ 100 mls/hr Q10H IVLG 08/06/17 22:41 09/05/17 22:40 08/08/17 10:38 Tamsulosin HCl (Flomax) 0.4 mg Q12HR ORAL 08/07/17 21:00 09/06/17 20:59 08/08/17 08:07 Temazepam (Restoril) 15 mg HSPRN PRN ORAL Insomnia 08/06/17 22:45 08/13/17 22:44 MARGO GALLEGOS Aug 08, 2017 10:57
[2017-08-08 12:00] VITALS: BP 144/74
--- NOTE | 2017-08-08 14:24 | Internal Med Progress Note ---
Subjective Date of Service: Aug 08, 2017 Physician Name Dee Maher Attending Physician Christopher Rosado MD Current Medications Medications (Trade) Dose Ordered Sig/Dunia Route PRN Reason Start Time Stop Time Status Last Admin Dose Admin Acetaminophen (Tylenol) 650 mg Q4H PRN ORAL fever 08/06/17 22:45 09/05/17 22:44 08/07/17 10:56 Al Hydroxide/Mg Hydroxide (Mylanta II) 30 ml Q6H PRN ORAL dyspepsia 08/06/17 22:45 09/05/17 22:44 Albuterol/ Ipratropium (Albuterol/ Ipratropium) 3 ml Q4H PRN HHN Shortness of Breath 08/06/17 22:45 08/11/17 22:44 Amlodipine Besylate (Norvasc) 5 mg DAILY ORAL 08/07/17 09:00 09/06/17 08:59 08/07/17 10:24 Atorvastatin Calcium (Lipitor) 10 mg BEDTIME ORAL 08/07/17 21:00 09/06/17 20:59 08/07/17 20:45 Azathioprine (Imuran) 50 mg DAILY ORAL 08/07/17 09:00 09/06/17 08:59 08/08/17 07:53 Aztreonam 2 gm/ Dextrose 110 ml @ 220 mls/hr Q8HR IVPB 08/07/17 14:00 08/14/17 13:59 08/08/17 13:43 Chlorhexidine Gluconate (Eloisa-Hex 2%) 1 applic DAILY@2000 TOPIC 08/07/17 20:00 09/06/17 19:59 08/07/17 20:45 Clonidine HCl (Catapres Tab) 0.1 mg Q4H PRN ORAL sbp more than 160 08/06/17 22:45 09/05/17 22:44 08/07/17 10:25 Daptomycin 500 mg/ Sodium Chloride 55 ml @ 110 mls/hr Q48H IV 08/07/17 14:00 08/14/17 13:59 08/07/17 15:14 Dextrose (Dextrose 50%) STAT PRN IV Hypoglycemia 08/08/17 09:00 09/07/17 08:59 Duloxetine HCl (Cymbalta) 30 mg DAILY ORAL 08/07/17 09:00 09/06/17 08:59 08/08/17 07:54 Finasteride (Proscar) 5 mg DAILY ORAL 08/07/17 09:00 09/06/17 08:59 08/08/17 07:54 Heparin Sodium (Porcine) (Heparin 5000 units/ml) 5,000 units EVERY 12 HOURS SUBQ 08/07/17 09:00 09/06/17 08:59 08/08/17 08:06 Insulin Aspart (NovoLOG) BEFORE MEALS AND HS SUBQ 08/07/17 06:30 09/06/17 06:29 08/08/17 13:46 Insulin Aspart (NovoLOG) 8 units NOVOTIAC SUBQ 08/08/17 09:00 09/07/17 08:59 08/08/17 13:46 Insulin Detemir (Levemir) 12 units BID SUBQ 08/08/17 09:00 09/07/17 08:59 08/08/17 08:56 Metoprolol Tartrate (Lopressor) 50 mg Q12HR ORAL 08/07/17 21:00 09/06/17 20:59 Morphine Sulfate (Morphine Sulfate) 2 mg Q4H PRN IVP severe pain 7-10 08/06/17 22:45 08/13/17 22:44 Nitroglycerin (Ntg) 0.4 mg Q5M X 3 DOSES PRN SL Prn Chest Pain 08/06/17 22:45 09/05/17 22:44 Ondansetron HCl (Zofran) 4 mg Q6H PRN IVP Nausea & Vomiting 08/06/17 22:45 09/05/17 22:44 Polyethylene Glycol (Miralax) 17 gm HSPRN PRN ORAL Constipation 08/06/17 22:45 09/05/17 22:44 Sevelamer Carbonate (Renvela) 800 mg TID@0800,1200,1700 ORAL 08/07/17 08:00 09/06/17 07:59 08/08/17 13:43 Sodium Chloride 1,000 ml @ 100 mls/hr Q10H IVLG 08/06/17 22:41 09/05/17 22:40 08/08/17 10:38 Tamsulosin HCl (Flomax) 0.4 mg Q12HR ORAL 08/07/17 21:00 09/06/17 20:59 08/08/17 08:07 Temazepam (Restoril) 15 mg HSPRN PRN ORAL Insomnia 08/06/17 22:45 08/13/17 22:44 Allergies: Coded Allergies: CEFEPIME (Verified Allergy, Intermediate, Rash, 01/23/13) ROS Limited/Unobtainable: No Constitutional: Reports: no symptoms HEENT: Reports: no symptoms Cardiovascular: Reports: no symptoms Respiratory: Reports: no symptoms Gastrointestinal/Abdominal: Reports: no symptoms Genitourinary: Reports: no symptoms Neurologic/Psychiatric: Reports: no symptoms Subjective 62 YO M admitted with hyperglycemia. Cover for Int Med-Dr Rosado.. Fingerstick glucose still elevated. Objective Last Vital Signs Date Time Temp Pulse Resp B/P (MAP) Pulse Ox O2 Delivery O2 Flow Rate FiO2 08/08/17 12:00 98.1 81 20 144/74 99 08/08/17 00:00 Room Air General Appearance: WD/WN, no apparent distress, alert Neck: non-tender, normal alignment, supple Cardiovascular: normal peripheral pulses, normal rate, regular rhythm, no gallop/murmur, no JVD Respiratory/Chest: chest wall non-tender, lungs clear, normal breath sounds, no respiratory distress, no accessory muscle use Extremities: normal range of motion, non-tender Neurologic: no motor/sensory deficits Skin: normal pigmentation, warm/dry Laboratory Tests Test 08/08/17 06:00 Amylase Level 202 U/L (25-115) H Microbiology Date/Time Source Procedure Growth Status 08/06/17 20:30 Blood Blood Culture - Preliminary Resulted 08/06/17 20:30 Blood Blood Culture - Preliminary Resulted 08/06/17 19:55 Nasal Nares Influenza Types A,B Antigen (NIA) - Final Complete Intake and Output 08/07/17 08/08/17 19:00 07:00 Intake Total 1875 ml 1320 ml Output Total 600 ml Balance 1275 ml 1320 ml Intake Oral 810 ml IV Total 1065 ml 1320 ml Output Urine Total 600 ml # Voids 2 # Bowel Movements 1 Assessment/Plan Problem List: (1) Acute hyperglycemia Assessment & Plan: ? secondaary to infection? See ID and endocrinology note. (2) Uncontrolled diabetes mellitus Assessment & Plan: Continue levemir and novolog sliding scale per endocrinology (3) Anemia (4) CKD (chronic kidney disease), stage III Assessment & Plan: See nephrology note. (5) Hyperglycemia due to type 2 diabetes mellitus (6) CAD (coronary artery disease) (7) HTN (hypertension) Assessment & Plan: Cont lopressor and norvasc. (8) Acute hyperglycemia (9) Gastritis (10) BPH (benign prostatic hyperplasia) (11) Hypercholesteremia Status: not improved DEE MAHER Aug 08, 2017 14:24
[2017-08-08 15:33] LABS: BASOPHILS % (AUTO) 0.5 % (0.0-2.0); EOSINOPHILS % (AUTO) 2.1 % (0.0-3.0); HEMATOCRIT 26.7 % (42.0-52.0); HEMOGLOBIN 8.7 G/DL (14.2-18.0); LYMPHOCYTES % (AUTO) 14.8 % (20.0-45.0); MEAN CORPUSCULAR VOLUME 98 FL (80-99); MONOCYTES % (AUTO) 7.4 % (1.0-10.0); NEUTROPHILS % (AUTO) 75.1 % (45.0-75.0); PLATELET COUNT 186 K/UL (150-450); RED BLOOD COUNT 2.73 M/UL (4.70-6.10); RED CELL DISTRIBUTION WIDTH 14.2 % (11.6-14.8); WHITE BLOOD COUNT 7.9 K/UL (4.8-10.8)
[2017-08-08 15:54] VITALS: BP 111/53
[2017-08-08 15:58] LABS: ANION GAP 12 mmol/L (5-15); BLOOD UREA NITROGEN 70 mg/dL (7-18); CALCIUM 8.2 MG/DL (8.5-10.1); CARBON DIOXIDE 17 MMOL/L (21-32); CHLORIDE 106 MMOL/L (98-107); CREATININE 4.9 MG/DL (0.55-1.30); POTASSIUM 4.7 MMOL/L (3.5-5.1); SODIUM 135 MMOL/L (136-145)
[2017-08-08] MEDS ORDERED: Tubing IV Secondary IV ONE (16:32)
[2017-08-08 20:00] VITALS: BP 139/65
[2017-08-08] MEDS: Dyna-Hex 2% Top Sol 2oz TOPIC SCH (20:30)
[2017-08-09] VITALS: BP 127/71
[2017-08-09 04:00] VITALS: BP 117/67
[2017-08-09] MEDS: NovoLOG Insulin Flexpen SUBQ SCH ×7 (05:24→22:23)
[2017-08-09] MEDS: Aztreonam Inj 2 GM in D5W 110 ML IVPB SCH ×2 (05:24→12:43)
[2017-08-09 06:39] LABS: BASOPHILS % (AUTO) 0.6 % (0.0-2.0); HEMATOCRIT 26.3 % (42.0-52.0); HEMOGLOBIN 8.3 G/DL (14.2-18.0); LYMPHOCYTES % (AUTO) 20.8 % (20.0-45.0); MEAN CORPUSCULAR VOLUME 99 FL (80-99); MONOCYTES % (AUTO) 9.1 % (1.0-10.0); NEUTROPHILS % (AUTO) 67.6 % (45.0-75.0); PLATELET COUNT 203 K/UL (150-450); RED BLOOD COUNT 2.66 M/UL (4.70-6.10); RED CELL DISTRIBUTION WIDTH 14.2 % (11.6-14.8); WHITE BLOOD COUNT 7.7 K/UL (4.8-10.8)
[2017-08-09 06:57] LABS: ANION GAP 11 mmol/L (5-15); BLOOD UREA NITROGEN 66 mg/dL (7-18); CALCIUM 8.5 MG/DL (8.5-10.1); CARBON DIOXIDE 18 MMOL/L (21-32); CHLORIDE 112 MMOL/L (98-107); CREATININE 4.6 MG/DL (0.55-1.30); POTASSIUM 4.7 MMOL/L (3.5-5.1); SODIUM 141 MMOL/L (136-145)
[2017-08-09] MEDS: Renvela 800mg Pkt ORAL SCH ×3 (07:52→18:14)
[2017-08-09] MEDS: azaTHIOprine 50 MG TAB ORAL SCH (07:52)
[2017-08-09] MEDS: Metoprolol Tartrate 50mg tab ORAL SCH ×2 (07:53→22:01)
[2017-08-09] MEDS: DULoxetine 30mg cap ORAL SCH (07:54)
[2017-08-09] MEDS: Tamsulosin 0.4mg cap ORAL SCH ×2 (07:54→22:01)
[2017-08-09] MEDS: Heparin 5000 units/ml inj SUBQ SCH ×2 (07:59→22:23)
[2017-08-09 08:00] VITALS: BP 136/79
[2017-08-09] MEDS: Levemir Flexpen SUBQ SCH ×3 (08:05→21:00)
[2017-08-09 12:00] VITALS: BP 157/76
--- NOTE | 2017-08-09 12:18 | Internal Med Progress Note ---
Subjective Date of Service: Aug 09, 2017 Physician Name Dee Maher Attending Physician Christopher Rosado MD Current Medications Medications (Trade) Dose Ordered Sig/Dunia Route PRN Reason Start Time Stop Time Status Last Admin Dose Admin Acetaminophen (Tylenol) 650 mg Q4H PRN ORAL fever 08/06/17 22:45 09/05/17 22:44 08/07/17 10:56 Al Hydroxide/Mg Hydroxide (Mylanta II) 30 ml Q6H PRN ORAL dyspepsia 08/06/17 22:45 09/05/17 22:44 Albuterol/ Ipratropium (Albuterol/ Ipratropium) 3 ml Q4H PRN HHN Shortness of Breath 08/06/17 22:45 08/11/17 22:44 Amlodipine Besylate (Norvasc) 5 mg DAILY ORAL 08/07/17 09:00 09/06/17 08:59 08/09/17 07:54 Atorvastatin Calcium (Lipitor) 10 mg BEDTIME ORAL 08/07/17 21:00 09/06/17 20:59 08/08/17 20:31 Azathioprine (Imuran) 50 mg DAILY ORAL 08/07/17 09:00 09/06/17 08:59 08/09/17 07:52 Aztreonam 2 gm/ Dextrose 110 ml @ 220 mls/hr Q8HR IVPB 08/07/17 14:00 08/14/17 13:59 08/09/17 05:24 Chlorhexidine Gluconate (Eloisa-Hex 2%) 1 applic DAILY@2000 TOPIC 08/07/17 20:00 09/06/17 19:59 08/08/17 20:30 Clonidine HCl (Catapres Tab) 0.1 mg Q4H PRN ORAL sbp more than 160 08/06/17 22:45 09/05/17 22:44 08/07/17 10:25 Daptomycin 500 mg/ Sodium Chloride 55 ml @ 110 mls/hr Q48H IV 08/07/17 14:00 08/14/17 13:59 08/07/17 15:14 Dextrose (Dextrose 50%) STAT PRN IV Hypoglycemia 08/08/17 09:00 09/07/17 08:59 Duloxetine HCl (Cymbalta) 30 mg DAILY ORAL 08/07/17 09:00 09/06/17 08:59 08/09/17 07:54 Finasteride (Proscar) 5 mg DAILY ORAL 08/07/17 09:00 09/06/17 08:59 08/09/17 07:54 Heparin Sodium (Porcine) (Heparin 5000 units/ml) 5,000 units EVERY 12 HOURS SUBQ 08/07/17 09:00 09/06/17 08:59 08/09/17 07:59 Insulin Aspart (NovoLOG) BEFORE MEALS AND HS SUBQ 08/07/17 06:30 09/06/17 06:29 08/08/17 17:30 Insulin Aspart (NovoLOG) 8 units NOVOTIAC SUBQ 08/08/17 09:00 09/07/17 08:59 08/08/17 17:31 Insulin Detemir (Levemir) 12 units BID SUBQ 08/08/17 09:00 09/07/17 08:59 08/09/17 08:05 Metoprolol Tartrate (Lopressor) 50 mg Q12HR ORAL 08/07/17 21:00 09/06/17 20:59 08/09/17 07:53 Morphine Sulfate (Morphine Sulfate) 2 mg Q4H PRN IVP severe pain 7-10 08/06/17 22:45 08/13/17 22:44 Nitroglycerin (Ntg) 0.4 mg Q5M X 3 DOSES PRN SL Prn Chest Pain 08/06/17 22:45 09/05/17 22:44 Ondansetron HCl (Zofran) 4 mg Q6H PRN IVP Nausea & Vomiting 08/06/17 22:45 09/05/17 22:44 Polyethylene Glycol (Miralax) 17 gm HSPRN PRN ORAL Constipation 08/06/17 22:45 09/05/17 22:44 Sevelamer Carbonate (Renvela) 800 mg TID@0800,1200,1700 ORAL 08/07/17 08:00 09/06/17 07:59 08/09/17 07:52 Sodium Chloride 1,000 ml @ 100 mls/hr Q10H IVLG 08/06/17 22:41 09/05/17 22:40 08/09/17 08:07 Tamsulosin HCl (Flomax) 0.4 mg Q12HR ORAL 08/07/17 21:00 09/06/17 20:59 08/09/17 07:54 Temazepam (Restoril) 15 mg HSPRN PRN ORAL Insomnia 08/06/17 22:45 08/13/17 22:44 Allergies: Coded Allergies: CEFEPIME (Verified Allergy, Intermediate, Rash, 01/23/13) ROS Limited/Unobtainable: No Constitutional: Reports: no symptoms HEENT: Reports: no symptoms Cardiovascular: Reports: no symptoms Respiratory: Reports: no symptoms Gastrointestinal/Abdominal: Reports: no symptoms Genitourinary: Reports: no symptoms Neurologic/Psychiatric: Reports: no symptoms Subjective 62 YO M admitted with hyperglycemia. Cover for Int Pierre-Dr Rosado.. Fingerstick glucose still labile 55-211. Objective Last Vital Signs Date Time Temp Pulse Resp B/P (MAP) Pulse Ox O2 Delivery O2 Flow Rate FiO2 08/09/17 07:54 84 136/79 08/09/17 06:48 18 Room Air 21 08/09/17 04:00 97.8 98 Laboratory Tests Test 08/08/17 14:50 08/09/17 05:30 White Blood Count 7.9 K/UL (4.8-10.8) 7.7 K/UL (4.8-10.8) Red Blood Count 2.73 M/UL (4.70-6.10) L 2.66 M/UL (4.70-6.10) L Hemoglobin 8.7 G/DL (14.2-18.0) L 8.3 G/DL (14.2-18.0) L Hematocrit 26.7 % (42.0-52.0) L 26.3 % (42.0-52.0) L Mean Corpuscular Volume 98 FL (80-99) 99 FL (80-99) Mean Corpuscular Hemoglobin 32.0 PG (27.0-31.0) H 31.4 PG (27.0-31.0) H Mean Corpuscular Hemoglobin Concent 32.8 G/DL (32.0-36.0) 31.8 G/DL (32.0-36.0) L Red Cell Distribution Width 14.2 % (11.6-14.8) 14.2 % (11.6-14.8) Platelet Count 186 K/UL (150-450) 203 K/UL (150-450) Mean Platelet Volume 6.7 FL (6.5-10.1) 6.7 FL (6.5-10.1) Neutrophils (%) (Auto) 75.1 % (45.0-75.0) H 67.6 % (45.0-75.0) Lymphocytes (%) (Auto) 14.8 % (20.0-45.0) L 20.8 % (20.0-45.0) Monocytes (%) (Auto) 7.4 % (1.0-10.0) 9.1 % (1.0-10.0) Eosinophils (%) (Auto) 2.1 % (0.0-3.0) 2.0 % (0.0-3.0) Basophils (%) (Auto) 0.5 % (0.0-2.0) 0.6 % (0.0-2.0) Sodium Level 135 MMOL/L (136-145) L 141 MMOL/L (136-145) Potassium Level 4.7 MMOL/L (3.5-5.1) 4.7 MMOL/L (3.5-5.1) Chloride Level 106 MMOL/L (98-107) 112 MMOL/L (98-107) H Carbon Dioxide Level 17 MMOL/L (21-32) L 18 MMOL/L (21-32) L Anion Gap 12 mmol/L (5-15) 11 mmol/L (5-15) Blood Urea Nitrogen 70 mg/dL (7-18) H 66 mg/dL (7-18) H Creatinine 4.9 MG/DL (0.55-1.30) H 4.6 MG/DL (0.55-1.30) H Estimat Glomerular Filtration Rate 12.1 mL/min (>60) 13.0 mL/min (>60) Glucose Level 364 MG/DL (74-106) #H 55 MG/DL (74-106) #L Calcium Level 8.2 MG/DL (8.5-10.1) L 8.5 MG/DL (8.5-10.1) Microbiology Date/Time Source Procedure Growth Status 08/07/17 14:40 Blood Blood Culture - Preliminary NO GROWTH AFTER 24 HOURS Resulted 08/06/17 20:30 Blood Blood Culture - Preliminary Resulted 08/06/17 20:30 Blood Blood Culture - Preliminary Staphylococcus Species Resulted 08/06/17 19:55 Nasal Nares Influenza Types A,B Antigen (NIA) - Final Complete 08/07/17 21:00 Urine,Clean Catch Urine Culture - Preliminary NO GROWTH AFTER 24 HOURS Resulted Intake and Output 08/08/17 08/09/17 19:00 07:00 Intake Total 1690 ml 1270 ml Output Total 650 ml 1100 ml Balance 1040 ml 170 ml Intake Oral 480 ml IV Total 1210 ml 1270 ml Output Urine Total 650 ml 1100 ml Objective General Appearance: WD/WN, no apparent distress, alert Neck: non-tender, normal alignment, supple Cardiovascular: normal peripheral pulses, normal rate, regular rhythm, no gallop/murmur, no JVD Respiratory/Chest: chest wall non-tender, lungs clear, normal breath sounds, no respiratory distress, no accessory muscle use Extremities: normal range of motion, non-tender Neurologic: no motor/sensory deficits Skin: normal pigmentation, warm/dry Assessment/Plan Problem List: (1) Acute hyperglycemia Assessment & Plan: ? secondaary to infection? See ID and endocrinology note. (2) Uncontrolled diabetes mellitus Assessment & Plan: Continue levemir and novolog sliding scale per endocrinology (3) Anemia (4) CKD (chronic kidney disease), stage III Assessment & Plan: See nephrology note. (5) Hyperglycemia due to type 2 diabetes mellitus (6) CAD (coronary artery disease) (7) HTN (hypertension) Assessment & Plan: Cont lopressor and norvasc. (8) Acute hyperglycemia (9) Gastritis (10) BPH (benign prostatic hyperplasia) (11) Hypercholesteremia Status: not improved DEE MAHER Aug 09, 2017 12:18
[2017-08-09] MEDS: DAPTOmycin 500 MG in NS 55 ML IV SCH (13:57)
--- NOTE | 2017-08-09 15:33 | Pulmonology Progress Note ---
Assessment/Plan Problems: (1) Bacteremia (2) Uncontrolled diabetes mellitus (3) Anemia in chronic kidney disease (4) Psychiatric disturbance (5) Anemia (6) Renal transplant recipient Assessment/Plan check electrolytes all reviewed sliding scale iv fluids psych f/u diabetic diet f/u blood culture sensitivities Subjective ROS Limited/Unobtainable: No Constitutional: Reports: no symptoms HEENT: Repors: no symptoms Respiratory: Reports: no symptoms, other Allergies: Coded Allergies: CEFEPIME (Verified Allergy, Intermediate, Rash, 01/23/13) Objective Last 24 Hour Vital Signs Date Time Temp Pulse Resp B/P (MAP) Pulse Ox O2 Delivery O2 Flow Rate FiO2 08/09/17 12:00 98.9 78 19 157/76 98 78 08/09/17 08:00 97.8 84 19 136/79 98 08/09/17 07:54 84 136/79 08/09/17 07:53 84 136/79 08/09/17 06:48 82 18 Room Air 21 08/09/17 04:00 97.8 57 20 117/67 98 08/09/17 00:00 98.5 81 21 127/71 98 08/08/17 20:31 72 139/65 08/08/17 20:00 98.7 72 21 139/65 97 08/08/17 15:54 97.7 73 19 111/53 97 Intake and Output 08/08/17 08/09/17 19:00 07:00 Intake Total 1690 ml 1270 ml Output Total 650 ml 1100 ml Balance 1040 ml 170 ml Intake Oral 480 ml IV Total 1210 ml 1270 ml Output Urine Total 650 ml 1100 ml Objective General Appearance: WN Lines, tubes and drains: peripheral HEENT: normocephalic, atraumatic Neck: non-tender, normal alignment Respiratory/Chest: chest wall non-tender, lungs clear Cardiovascular/Chest: normal peripheral pulses, normal rate Abdomen: normal bowel sounds, non tender Genitourinary/Rectal: normal genital exam, normal rectal exam Skin Exam: normal pigmentation Microbiology Date/Time Source Procedure Growth Status 08/07/17 14:40 Blood Blood Culture - Preliminary NO GROWTH AFTER 24 HOURS Resulted 08/06/17 20:30 Blood Blood Culture - Preliminary Resulted 08/06/17 20:30 Blood Blood Culture - Preliminary Staphylococcus Species Resulted 08/06/17 19:55 Nasal Nares Influenza Types A,B Antigen (NIA) - Final Complete 08/07/17 21:00 Urine,Clean Catch Urine Culture - Preliminary NO GROWTH AFTER 24 HOURS Resulted Laboratory Tests 08/09/17 05:30: White Blood Count 7.7, Red Blood Count 2.66L, Hemoglobin 8.3L, Hematocrit 26.3L , Mean Corpuscular Volume 99, Mean Corpuscular Hemoglobin 31.4H, Mean Corpuscular Hemoglobin Concent 31.8L, Red Cell Distribution Width 14.2, Platelet Count 203, Mean Platelet Volume 6.7, Neutrophils (%) (Auto) 67.6, Lymphocytes (%) (Auto) 20.8, Monocytes (%) (Auto) 9.1, Eosinophils (%) (Auto) 2.0, Basophils (%) (Auto) 0.6, Sodium Level 141, Potassium Level 4.7, Chloride Level 112H, Carbon Dioxide Level 18L, Anion Gap 11, Blood Urea Nitrogen 66H, Creatinine 4.6H, Estimat Glomerular Filtration Rate 13.0, Glucose Level 55#L, Calcium Level 8.5 Current Medications Medications (Trade) Dose Ordered Sig/Dunia Route PRN Reason Start Time Stop Time Status Last Admin Dose Admin Acetaminophen (Tylenol) 650 mg Q4H PRN ORAL fever 08/06/17 22:45 09/05/17 22:44 08/07/17 10:56 Al Hydroxide/Mg Hydroxide (Mylanta II) 30 ml Q6H PRN ORAL dyspepsia 08/06/17 22:45 09/05/17 22:44 Albuterol/ Ipratropium (Albuterol/ Ipratropium) 3 ml Q4H PRN HHN Shortness of Breath 08/06/17 22:45 08/11/17 22:44 Amlodipine Besylate (Norvasc) 5 mg DAILY ORAL 08/07/17 09:00 09/06/17 08:59 08/09/17 07:54 Azathioprine (Imuran) 50 mg DAILY ORAL 08/07/17 09:00 09/06/17 08:59 08/09/17 07:52 Aztreonam 2 gm/ Dextrose 110 ml @ 220 mls/hr Q8HR IVPB 08/07/17 14:00 08/14/17 13:59 08/09/17 12:43 Chlorhexidine Gluconate (Eloisa-Hex 2%) 1 applic DAILY@2000 TOPIC 08/07/17 20:00 09/06/17 19:59 08/08/17 20:30 Clonidine HCl (Catapres Tab) 0.1 mg Q4H PRN ORAL sbp more than 160 08/06/17 22:45 09/05/17 22:44 08/07/17 10:25 Daptomycin 500 mg/ Sodium Chloride 55 ml @ 110 mls/hr Q48H IV 08/07/17 14:00 08/14/17 13:59 08/09/17 13:57 Dextrose (Dextrose 50%) STAT PRN IV Hypoglycemia 08/08/17 09:00 09/07/17 08:59 Duloxetine HCl (Cymbalta) 30 mg DAILY ORAL 08/07/17 09:00 09/06/17 08:59 08/09/17 07:54 Finasteride (Proscar) 5 mg DAILY ORAL 08/07/17 09:00 09/06/17 08:59 08/09/17 07:54 Heparin Sodium (Porcine) (Heparin 5000 units/ml) 5,000 units EVERY 12 HOURS SUBQ 08/07/17 09:00 09/06/17 08:59 08/09/17 07:59 Insulin Aspart (NovoLOG) BEFORE MEALS AND HS SUBQ 08/07/17 06:30 09/06/17 06:29 08/09/17 12:42 Insulin Aspart (NovoLOG) 8 units NOVOTIAC SUBQ 08/08/17 09:00 09/07/17 08:59 08/09/17 12:42 Insulin Detemir (Levemir) 12 units BID SUBQ 08/08/17 09:00 09/07/17 08:59 08/09/17 08:05 Metoprolol Tartrate (Lopressor) 50 mg Q12HR ORAL 08/07/17 21:00 09/06/17 20:59 08/09/17 07:53 Morphine Sulfate (Morphine Sulfate) 2 mg Q4H PRN IVP severe pain 7-10 08/06/17 22:45 08/13/17 22:44 Nitroglycerin (Ntg) 0.4 mg Q5M X 3 DOSES PRN SL Prn Chest Pain 08/06/17 22:45 09/05/17 22:44 Ondansetron HCl (Zofran) 4 mg Q6H PRN IVP Nausea & Vomiting 08/06/17 22:45 09/05/17 22:44 Polyethylene Glycol (Miralax) 17 gm HSPRN PRN ORAL Constipation 08/06/17 22:45 09/05/17 22:44 Sevelamer Carbonate (Renvela) 800 mg TID@0800,1200,1700 ORAL 08/07/17 08:00 09/06/17 07:59 08/09/17 12:38 Sodium Chloride 1,000 ml @ 100 mls/hr Q10H IVLG 08/06/17 22:41 09/05/17 22:40 08/09/17 08:07 Tamsulosin HCl (Flomax) 0.4 mg Q12HR ORAL 08/07/17 21:00 09/06/17 20:59 08/09/17 07:54 Temazepam (Restoril) 15 mg HSPRN PRN ORAL Insomnia 08/06/17 22:45 08/13/17 22:44 MARGO GALLEGOS Aug 09, 2017 15:33
--- NOTE | 2017-08-09 15:52 | Consultation ---
Consult Note Consult Note known to me from his previous admissions- has CKD and was admitted for DM OOC BS is being managed by Endo Patient interviewed and examined- Data reviewed PH: (1) CKD (chronic kidney disease), stage III, superimposed acute- Cr unchanged since last admit (2) Dehydration- Partly due to hyperglycemia (3) Hyperglycemia due to type 2 diabetes mellitus (4) BPH (benign prostatic hypertrophy) (5) Nephropathy, diabetic (6) History of simultaneous kidney and pancreas transplant (7) UTI (urinary tract infection) (8) Anemia of CKD Assessment/Plan Plan: check for retention via JOHNNY Slow Hydrate- BP and BS control- Flomax PO- monitor renal parameters Anemia [place] previous workup: 2D Echo: Left ventricular ejection fraction estimated to be 55 %. No evidence of left ventricular hypertrophy. Kidney JOHNNY- previous results: Markedly distended bladder with large post void residual Left iliac fossa transplant kidney with moderate hydronephrosis. Suspect hydronephrosis is secondary to the above bladder abnormality, although other etiologies are not excludable. Mildly elevated transplant kidney resistive indices. This is nonspecific, can be seen in uropathy, but can also be seen in acute or chronic rejection, acute tubular necrosis, among other possibilities BERT ALONSO Aug 09, 2017 15:52
[2017-08-09 16:00] VITALS: BP 121/86
[2017-08-09] MEDS: Docusate 100mg cap ORAL SCH (18:14)
[2017-08-09 20:00] VITALS: BP 126/63
--- NOTE | 2017-08-09 20:36 | Infectious Diseases Prog Note ---
Assessment/Plan Assessment/Plan ASSESSMENT: The patient is a 62-year-old male with: Persistent Gram positive bacteremia- likely 2ry to infected PICC line- r/o MRSA , r/o endocarditis -08/06 Bcx 10/13 Staph species (labeld peripheral), Bcx 08/07 NTD, 08/08 (line) 2/2 GPC Low-grade fever/leukocytosis- resolved -u/a no pyuria, ucx NTD Uncontrolled diabetes, probably due to sepsis. 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 -History of renal and pancreas transplant about 10 years ago. 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 - History of suicidal attempts in the past. -. History of myocardial infarction. -. History of anemia. -. History of colon polyps. PLAN: -Continue daptomycin #3 for GPC bacteremia penidng ID and d/c Azactam #3 -obtain 2 sets of Bcx -obtain PIV and remove PICC line -2d Echo -. Monitor CBC/BMP, temperatuers -f/u cx -CXR Thank you, Dr. Delgado, for allowing me to participate in the care of this patient. I will follow the patient with you during this hospitalization. Subjective Allergies: Coded Allergies: CEFEPIME (Verified Allergy, Intermediate, Rash, 01/23/13) Subjective afebrile in >48hrs leukocytosis resolved bacteremic Objective Vital Signs Last 24 Hour Vital Signs Date Time Temp Pulse Resp B/P (MAP) Pulse Ox O2 Delivery O2 Flow Rate FiO2 08/09/17 18:15 86 121/86 08/09/17 16:00 98.6 86 19 121/86 98 86 08/09/17 12:00 98.9 78 19 157/76 98 78 08/09/17 08:00 97.8 84 19 136/79 98 08/09/17 07:54 84 136/79 08/09/17 07:53 84 136/79 08/09/17 06:48 82 18 Room Air 21 08/09/17 04:00 97.8 57 20 117/67 98 08/09/17 00:00 98.5 81 21 127/71 98 08/08/17 20:31 72 139/65 Height (Feet): 5 Height (Inches): 8.00 Weight (Pounds): 209 Objective HEENT: No pale conjunctivae. No icterus. CHEST: Clear. HEART: S1 and S2. ABDOMEN: Soft, obese, nontender. EXTREMITIES: The patient has a right PICC line placed. NEUROLOGIC: Awake and alert. SKIN: The patient has scattered scratch velasquez on the upper and lower extremities. Microbiology Date/Time Source Procedure Growth Status 08/08/17 14:30 Blood Blood Culture - Preliminary Resulted 08/07/17 14:40 Blood Blood Culture - Preliminary NO GROWTH AFTER 24 HOURS Resulted 08/06/17 20:30 Blood Blood Culture - Preliminary Resulted 08/06/17 20:30 Blood Blood Culture - Preliminary Staphylococcus Species Resulted 08/07/17 21:00 Urine,Clean Catch Urine Culture - Preliminary NO GROWTH AFTER 24 HOURS Resulted Laboratory Tests Test 08/09/17 05:30 White Blood Count 7.7 K/UL (4.8-10.8) Red Blood Count 2.66 M/UL (4.70-6.10) L Hemoglobin 8.3 G/DL (14.2-18.0) L Hematocrit 26.3 % (42.0-52.0) L Mean Corpuscular Volume 99 FL (80-99) Mean Corpuscular Hemoglobin 31.4 PG (27.0-31.0) H Mean Corpuscular Hemoglobin Concent 31.8 G/DL (32.0-36.0) L Red Cell Distribution Width 14.2 % (11.6-14.8) Platelet Count 203 K/UL (150-450) Mean Platelet Volume 6.7 FL (6.5-10.1) Neutrophils (%) (Auto) 67.6 % (45.0-75.0) Lymphocytes (%) (Auto) 20.8 % (20.0-45.0) Monocytes (%) (Auto) 9.1 % (1.0-10.0) Eosinophils (%) (Auto) 2.0 % (0.0-3.0) Basophils (%) (Auto) 0.6 % (0.0-2.0) Sodium Level 141 MMOL/L (136-145) Potassium Level 4.7 MMOL/L (3.5-5.1) Chloride Level 112 MMOL/L (98-107) H Carbon Dioxide Level 18 MMOL/L (21-32) L Anion Gap 11 mmol/L (5-15) Blood Urea Nitrogen 66 mg/dL (7-18) H Creatinine 4.6 MG/DL (0.55-1.30) H Estimat Glomerular Filtration Rate 13.0 mL/min (>60) Glucose Level 55 MG/DL (74-106) #L Calcium Level 8.5 MG/DL (8.5-10.1) C-Reactive Protein, Quantitative 2.9 mg/dL (0.00-0.90) H Current Medications Medications (Trade) Dose Ordered Sig/Dunia Route PRN Reason Start Time Stop Time Status Last Admin Dose Admin Acetaminophen (Tylenol) 650 mg Q4H PRN ORAL fever 08/06/17 22:45 09/05/17 22:44 08/07/17 10:56 Albuterol/ Ipratropium (Albuterol/ Ipratropium) 3 ml Q4H PRN HHN Shortness of Breath 08/06/17 22:45 08/11/17 22:44 Amlodipine Besylate (Norvasc) 5 mg BID ORAL 08/09/17 18:00 09/06/17 08:59 08/09/17 18:15 Azathioprine (Imuran) 50 mg DAILY ORAL 08/07/17 09:00 09/06/17 08:59 08/09/17 07:52 Aztreonam 2 gm/ Dextrose 110 ml @ 220 mls/hr Q8HR IVPB 08/07/17 14:00 08/14/17 13:59 08/09/17 12:43 Chlorhexidine Gluconate (Eloisa-Hex 2%) 1 applic DAILY@2000 TOPIC 08/07/17 20:00 09/06/17 19:59 08/08/17 20:30 Clonidine HCl (Catapres Tab) 0.1 mg Q4H PRN ORAL sbp more than 160 08/06/17 22:45 09/05/17 22:44 08/07/17 10:25 Daptomycin 500 mg/ Sodium Chloride 55 ml @ 110 mls/hr Q48H IV 08/07/17 14:00 08/14/17 13:59 08/09/17 13:57 Dextrose (Dextrose 50%) STAT PRN IV Hypoglycemia 08/08/17 09:00 09/07/17 08:59 Docusate Sodium (Colace) 100 mg TID ORAL 08/09/17 18:00 09/08/17 17:59 08/09/17 18:14 Duloxetine HCl (Cymbalta) 30 mg DAILY ORAL 08/07/17 09:00 09/06/17 08:59 08/09/17 07:54 Finasteride (Proscar) 5 mg DAILY ORAL 08/07/17 09:00 09/06/17 08:59 08/09/17 07:54 Heparin Sodium (Porcine) (Heparin 5000 units/ml) 5,000 units EVERY 12 HOURS SUBQ 08/07/17 09:00 09/06/17 08:59 08/09/17 07:59 Insulin Aspart (NovoLOG) BEFORE MEALS AND HS SUBQ 08/07/17 06:30 09/06/17 06:29 08/09/17 12:42 Insulin Aspart (NovoLOG) 8 units NOVOTIAC SUBQ 08/08/17 09:00 09/07/17 08:59 08/09/17 12:42 Insulin Detemir (Levemir) 12 units BID SUBQ 08/08/17 09:00 09/07/17 08:59 08/09/17 08:05 Metoprolol Tartrate (Lopressor) 50 mg Q12HR ORAL 08/07/17 21:00 09/06/17 20:59 08/09/17 07:53 Morphine Sulfate (Morphine Sulfate) 2 mg Q4H PRN IVP severe pain 7-10 08/06/17 22:45 08/13/17 22:44 Nitroglycerin (Ntg) 0.4 mg Q5M X 3 DOSES PRN SL Prn Chest Pain 08/06/17 22:45 09/05/17 22:44 Ondansetron HCl (Zofran) 4 mg Q6H PRN IVP Nausea & Vomiting 08/06/17 22:45 09/05/17 22:44 Pantoprazole (Protonix) 40 mg DAILY ORAL 08/09/17 16:30 09/08/17 16:29 08/09/17 18:15 Polyethylene Glycol (Miralax) 17 gm HSPRN PRN ORAL Constipation 08/06/17 22:45 09/05/17 22:44 Sevelamer Carbonate (Renvela) 800 mg TID@0800,1200,1700 ORAL 08/07/17 08:00 09/06/17 07:59 08/09/17 18:14 Sodium Chloride 1,000 ml @ 50 mls/hr Q20H IVLG 08/09/17 16:00 09/08/17 15:59 08/09/17 18:17 Tamsulosin HCl (Flomax) 0.4 mg Q12HR ORAL 08/07/17 21:00 09/06/17 20:59 08/09/17 07:54 Temazepam (Restoril) 15 mg HSPRN PRN ORAL Insomnia 08/06/17 22:45 08/13/17 22:44 Monique Read M.D. Aug 09, 2017 20:36
--- NOTE | 2017-08-09 20:59 | General Progress Note ---
Assessment/Plan Problem List: (1) ESRD (end stage renal disease) ICD Codes: N18.6 - End stage renal disease SNOMED: 85788581 (2) History of simultaneous kidney and pancreas transplant ICD Codes: Z94.0 - History of simultaneous kidney and pancreas transplant; Z94.83 - Pancreas transplant status SNOMED: 617667503 (3) Uncontrolled diabetes mellitus ICD Codes: E11.65 - Type 2 diabetes mellitus with hyperglycemia SNOMED: 627939997 Assessment/Plan reduce Levemir 12 to 10 units bid reduce Novolog 8 to 6 units ac tid continue NISS Subjective Allergies: Coded Allergies: CEFEPIME (Verified Allergy, Intermediate, Rash, 01/23/13) All Systems: reviewed and negative except above Subjective events noted Objective Last 24 Hour Vital Signs Date Time Temp Pulse Resp B/P (MAP) Pulse Ox O2 Delivery O2 Flow Rate FiO2 08/09/17 20:00 98.8 80 20 126/63 96 08/09/17 18:15 86 121/86 08/09/17 16:00 98.6 86 19 121/86 98 86 08/09/17 12:00 98.9 78 19 157/76 98 78 08/09/17 08:00 97.8 84 19 136/79 98 08/09/17 07:54 84 136/79 08/09/17 07:53 84 136/79 08/09/17 06:48 82 18 Room Air 21 08/09/17 04:00 97.8 57 20 117/67 98 08/09/17 00:00 98.5 81 21 127/71 98 Intake and Output 08/08/17 08/09/17 19:00 07:00 Intake Total 1690 ml 1270 ml Output Total 650 ml 1100 ml Balance 1040 ml 170 ml Intake Oral 480 ml IV Total 1210 ml 1270 ml Output Urine Total 650 ml 1100 ml Laboratory Tests 08/09/17 05:30: White Blood Count 7.7, Red Blood Count 2.66L, Hemoglobin 8.3L, Hematocrit 26.3L , Mean Corpuscular Volume 99, Mean Corpuscular Hemoglobin 31.4H, Mean Corpuscular Hemoglobin Concent 31.8L, Red Cell Distribution Width 14.2, Platelet Count 203, Mean Platelet Volume 6.7, Neutrophils (%) (Auto) 67.6, Lymphocytes (%) (Auto) 20.8, Monocytes (%) (Auto) 9.1, Eosinophils (%) (Auto) 2.0, Basophils (%) (Auto) 0.6, Sodium Level 141, Potassium Level 4.7, Chloride Level 112H, Carbon Dioxide Level 18L, Anion Gap 11, Blood Urea Nitrogen 66H, Creatinine 4.6H, Estimat Glomerular Filtration Rate 13.0, Glucose Level 55#L, Calcium Level 8.5, C-Reactive Protein, Quantitative 2.9H Height (Feet): 5 Height (Inches): 8.00 Weight (Pounds): 209 General Appearance: no apparent distress Neck: normal alignment Cardiovascular: normal rate Respiratory/Chest: lungs clear Pelvis: normal external exam Edema: 1+ Arm (L), 1+ Arm (R), 1+ Leg (L), 1+ Leg (R), 1+ Pedal (L), 1+ Pedal ( R), 1+ Generalized Objective Current Medications Medications (Trade) Dose Ordered Sig/Dunia Route PRN Reason Start Time Stop Time Status Last Admin Dose Admin Acetaminophen (Tylenol) 650 mg Q4H PRN ORAL fever 08/06/17 22:45 09/05/17 22:44 08/07/17 10:56 Albuterol/ Ipratropium (Albuterol/ Ipratropium) 3 ml Q4H PRN HHN Shortness of Breath 08/06/17 22:45 08/11/17 22:44 Amlodipine Besylate (Norvasc) 5 mg BID ORAL 08/09/17 18:00 09/06/17 08:59 08/09/17 18:15 Azathioprine (Imuran) 50 mg DAILY ORAL 08/07/17 09:00 09/06/17 08:59 08/09/17 07:52 Chlorhexidine Gluconate (Eloisa-Hex 2%) 1 applic DAILY@2000 TOPIC 08/07/17 20:00 09/06/17 19:59 08/08/17 20:30 Clonidine HCl (Catapres Tab) 0.1 mg Q4H PRN ORAL sbp more than 160 08/06/17 22:45 09/05/17 22:44 08/07/17 10:25 Daptomycin 500 mg/ Sodium Chloride 55 ml @ 110 mls/hr Q48H IV 08/07/17 14:00 08/14/17 13:59 08/09/17 13:57 Dextrose (Dextrose 50%) STAT PRN IV Hypoglycemia 08/08/17 09:00 09/07/17 08:59 Docusate Sodium (Colace) 100 mg TID ORAL 08/09/17 18:00 09/08/17 17:59 08/09/17 18:14 Duloxetine HCl (Cymbalta) 30 mg DAILY ORAL 08/07/17 09:00 09/06/17 08:59 08/09/17 07:54 Finasteride (Proscar) 5 mg DAILY ORAL 08/07/17 09:00 09/06/17 08:59 08/09/17 07:54 Heparin Sodium (Porcine) (Heparin 5000 units/ml) 5,000 units EVERY 12 HOURS SUBQ 08/07/17 09:00 09/06/17 08:59 08/09/17 07:59 Insulin Aspart (NovoLOG) BEFORE MEALS AND HS SUBQ 08/07/17 06:30 09/06/17 06:29 08/09/17 12:42 Insulin Aspart (NovoLOG) 8 units NOVOTIAC SUBQ 08/08/17 09:00 09/07/17 08:59 08/09/17 12:42 Insulin Detemir (Levemir) 12 units BID SUBQ 08/08/17 09:00 09/07/17 08:59 08/09/17 08:05 Metoprolol Tartrate (Lopressor) 50 mg Q12HR ORAL 08/07/17 21:00 09/06/17 20:59 08/09/17 07:53 Morphine Sulfate (Morphine Sulfate) 2 mg Q4H PRN IVP severe pain 7-10 08/06/17 22:45 08/13/17 22:44 Nitroglycerin (Ntg) 0.4 mg Q5M X 3 DOSES PRN SL Prn Chest Pain 08/06/17 22:45 09/05/17 22:44 Ondansetron HCl (Zofran) 4 mg Q6H PRN IVP Nausea & Vomiting 08/06/17 22:45 09/05/17 22:44 Pantoprazole (Protonix) 40 mg DAILY ORAL 08/09/17 16:30 09/08/17 16:29 08/09/17 18:15 Polyethylene Glycol (Miralax) 17 gm HSPRN PRN ORAL Constipation 08/06/17 22:45 09/05/17 22:44 Sevelamer Carbonate (Renvela) 800 mg TID@0800,1200,1700 ORAL 08/07/17 08:00 09/06/17 07:59 08/09/17 18:14 Sodium Chloride 1,000 ml @ 50 mls/hr Q20H IVLG 08/09/17 16:00 09/08/17 15:59 08/09/17 18:17 Tamsulosin HCl (Flomax) 0.4 mg Q12HR ORAL 08/07/17 21:00 09/06/17 20:59 08/09/17 07:54 Temazepam (Restoril) 15 mg HSPRN PRN ORAL Insomnia 08/06/17 22:45 08/13/17 22:44 Item Value Date Time Bedside Blood Glucose 106 mg/dl 08/09/17 1800 Bedside Blood Glucose 254 mg/dl H 08/09/17 1242 Bedside Blood Glucose 211 mg/dl H 08/09/17 0805 Bedside Blood Glucose 118 mg/dl 08/09/17 0609 MALKA SHERIFF Aug 09, 2017 20:58
[2017-08-09] MEDS: Dyna-Hex 2% Top Sol 2oz TOPIC SCH (22:00)
--- NOTE | 2017-08-09 22:46 | Consultation ---
History of Present Illness General Date patient seen: Aug 09, 2017 Chief Complaint: Abnormal Labs Present Illness HPI 62-year-old white male with history of insulin-dependent diabetes who presents with complaint of hyperglycemia. well familiar with him the pt tends to get agitated and is difficult to manage at facility. at hospital the pt is manageable and is cooperative Allergies: Coded Allergies: CEFEPIME (Verified Allergy, Intermediate, Rash, 01/23/13) Medication History Scheduled Amlodipine Besylate (Norvasc), 5 MG ORAL DAILY, (Reported) Aspirin* (Aspirin*), 81 MG ORAL DAILY Atorvastatin Calcium* (Lipitor*), 10 MG ORAL BEDTIME Atorvastatin Calcium* (Lipitor*), 10 MG ORAL BEDTIME, (Reported) Azathioprine (Azathioprine), 50 MG ORAL DAILY Azathioprine* (Imuran*), 50 MG PO DAILY, (Reported) Cholecalciferol (Vitamin D3)* (Vitamin D*), 5,000 INTLU ORAL Mo@09 Cranberry Fruit Concentrate (Cranberry), 450 MG PO DAILY, (Reported) Docusate Sodium* (Colace*), 100 MG ORAL TWICE A DAY Doxycycline Hyclate (Doxycycline Hyclate), 100 MG PO BID Duloxetine Hcl* (Cymbalta*), 30 MG ORAL DAILY, (Reported) Epoetin Jose (Epogen), 10,000 UNIT SUBQ THREE TIMES A WEEK, (Reported) Ertapenem Sodium* (INVanz*), 1 GM IVPB Q24H, (Reported) Ferrous Sulfate* (Ferrous Sulfate*), 325 MG ORAL DAILY, (Reported) Finasteride (Finasteride), 5 MG ORAL DAILY Insulin Aspart (Novolog Flexpen), 10 UNITS SUBQ NOVOTIAC Insulin Aspart (Novolog Flexpen), 0 UNITS SUBQ BEFORE MEALS AND HS Insulin Aspart (Novolog Flexpen), 5 SQ AC, (Reported) Insulin Detemir (Levemir Flexpen), 15 UNITS SUBQ BID Insulin Glargine (Lantus), 6 SUBQ BID, (Reported) Insulin Glargine (Lantus), 10 SUBQ DAILY, (Reported) Insulin Glargine (Lantus), 6 SUBQ BEDTIME, (Reported) Insulin Lispro (Humalog), 4 SUBQ AC, (Reported) Linezolid (Zyvox), 600 MG IVPB EVERY 12 HOURS, (Reported) Metoprolol Succinate* (Metoprolol Succinate*), 50 MG ORAL Q12HR, (Reported) Omeprazole (Omeprazole), 40 MG ORAL DAILY, (Reported) Pantoprazole* (Protonix*), 40 MG ORAL DAILY Polyethylene Glycol* (Miralax*), 17 GM ORAL BEDTIME Sevelamer Carbonate* (Renvela*), 800 MG ORAL THREE TIMES A DAY, (Reported) Sodium Citrate (Sod Citrate-Citric Acid Soln), 30 ML ORAL THREE TIMES A DAY Tamsulosin HCl (Flomax), 0.4 MG ORAL BID, (Reported) Tamsulosin Hcl (Tamsulosin Hcl*), 0.4 MG ORAL BEDTIME Vit B Complex & C No.13/Fa/D3 (Nephrocaps Qt Tablet), 1 EACH PO DAILY, (Reported ) Vitamin D (Vitamin D3), 5,000 UNITS ORAL DAILY, (Reported) Warfarin Sod* (Coumadin*), 4 MG ORAL DAILY, (Reported) Scheduled PRN Acetaminophen (Acetaminophen), 650 MG ORAL Q6H PRN for Prn Headache/Temp > 101, (Reported) Ipratropium/Albuterol Sulfate (DuoNeb 0.5-3(2.5)mg/3ml), 3 ML HHN Q4HRT PRN for Shortness of Breath Ondansetron (Zofran), 4 MG ORAL Q6H PRN for Nausea & Vomiting, (Reported) [Warfarin RX monitoring], 1 EA MISC DAILY PRN for Per rx protocol Miscellaneous Medications Citric Acid/Sodium Citrate (Cytra-2 Oral Solution), 30 ML PO, (Reported) [Novolog ss], (Reported) Patient History Healthcare decision maker Resuscitation status Do Not Resuscitate Advanced Directive on File Yes Review of Systems Psychiatric: Reports: anxiety, depressed feelings, emotional problems Physical Exam General Appearance: no apparent distress, alert Neurologic: alert, oriented x 3, responsive, depressed affect Last 24 Hour Vital Signs Date Time Temp Pulse Resp B/P (MAP) Pulse Ox O2 Delivery O2 Flow Rate FiO2 08/09/17 22:01 80 126/63 08/09/17 20:00 98.8 80 20 126/63 96 08/09/17 18:15 86 121/86 08/09/17 16:00 98.6 86 19 121/86 98 86 08/09/17 12:00 98.9 78 19 157/76 98 78 08/09/17 08:00 97.8 84 19 136/79 98 08/09/17 07:54 84 136/79 08/09/17 07:53 84 136/79 08/09/17 06:48 82 18 Room Air 21 08/09/17 04:00 97.8 57 20 117/67 98 08/09/17 00:00 98.5 81 21 127/71 98 Intake and Output 08/08/17 08/09/17 19:00 07:00 Intake Total 1690 ml 1270 ml Output Total 650 ml 1100 ml Balance 1040 ml 170 ml Intake Oral 480 ml IV Total 1210 ml 1270 ml Output Urine Total 650 ml 1100 ml Laboratory Tests Test 08/09/17 05:30 White Blood Count 7.7 K/UL (4.8-10.8) Red Blood Count 2.66 M/UL (4.70-6.10) L Hemoglobin 8.3 G/DL (14.2-18.0) L Hematocrit 26.3 % (42.0-52.0) L Mean Corpuscular Volume 99 FL (80-99) Mean Corpuscular Hemoglobin 31.4 PG (27.0-31.0) H Mean Corpuscular Hemoglobin Concent 31.8 G/DL (32.0-36.0) L Red Cell Distribution Width 14.2 % (11.6-14.8) Platelet Count 203 K/UL (150-450) Mean Platelet Volume 6.7 FL (6.5-10.1) Neutrophils (%) (Auto) 67.6 % (45.0-75.0) Lymphocytes (%) (Auto) 20.8 % (20.0-45.0) Monocytes (%) (Auto) 9.1 % (1.0-10.0) Eosinophils (%) (Auto) 2.0 % (0.0-3.0) Basophils (%) (Auto) 0.6 % (0.0-2.0) Sodium Level 141 MMOL/L (136-145) Potassium Level 4.7 MMOL/L (3.5-5.1) Chloride Level 112 MMOL/L (98-107) H Carbon Dioxide Level 18 MMOL/L (21-32) L Anion Gap 11 mmol/L (5-15) Blood Urea Nitrogen 66 mg/dL (7-18) H Creatinine 4.6 MG/DL (0.55-1.30) H Estimat Glomerular Filtration Rate 13.0 mL/min (>60) Glucose Level 55 MG/DL (74-106) #L Calcium Level 8.5 MG/DL (8.5-10.1) C-Reactive Protein, Quantitative 2.9 mg/dL (0.00-0.90) H Height (Feet): 5 Height (Inches): 8.00 Weight (Pounds): 209 Medications Current Medications Medications (Trade) Dose Ordered Sig/Dunia Route PRN Reason Start Time Stop Time Status Last Admin Dose Admin Acetaminophen (Tylenol) 650 mg Q4H PRN ORAL fever 08/06/17 22:45 09/05/17 22:44 08/07/17 10:56 Albuterol/ Ipratropium (Albuterol/ Ipratropium) 3 ml Q4H PRN HHN Shortness of Breath 08/06/17 22:45 08/11/17 22:44 Amlodipine Besylate (Norvasc) 5 mg BID ORAL 08/09/17 18:00 09/06/17 08:59 08/09/17 18:15 Azathioprine (Imuran) 50 mg DAILY ORAL 08/07/17 09:00 09/06/17 08:59 08/09/17 07:52 Chlorhexidine Gluconate (Eloisa-Hex 2%) 1 applic DAILY@2000 TOPIC 08/07/17 20:00 09/06/17 19:59 08/09/17 22:00 Clonidine HCl (Catapres Tab) 0.1 mg Q4H PRN ORAL sbp more than 160 08/06/17 22:45 09/05/17 22:44 08/07/17 10:25 Daptomycin 500 mg/ Sodium Chloride 55 ml @ 110 mls/hr Q48H IV 08/07/17 14:00 08/14/17 13:59 08/09/17 13:57 Dextrose (Dextrose 50%) STAT PRN IV Hypoglycemia 08/08/17 09:00 09/07/17 08:59 Docusate Sodium (Colace) 100 mg TID ORAL 08/09/17 18:00 09/08/17 17:59 08/09/17 18:14 Duloxetine HCl (Cymbalta) 30 mg DAILY ORAL 08/07/17 09:00 09/06/17 08:59 08/09/17 07:54 Finasteride (Proscar) 5 mg DAILY ORAL 08/07/17 09:00 09/06/17 08:59 08/09/17 07:54 Heparin Sodium (Porcine) (Heparin 5000 units/ml) 5,000 units EVERY 12 HOURS SUBQ 08/07/17 09:00 09/06/17 08:59 08/09/17 22:23 Insulin Aspart (NovoLOG) BEFORE MEALS AND HS SUBQ 08/07/17 06:30 09/06/17 06:29 08/09/17 22:23 Insulin Aspart (NovoLOG) 8 units NOVOTIAC SUBQ 08/08/17 09:00 09/07/17 08:59 08/09/17 12:42 Insulin Detemir (Levemir) 10 units BID SUBQ 08/09/17 21:00 09/08/17 20:59 08/09/17 21:00 Metoprolol Tartrate (Lopressor) 50 mg Q12HR ORAL 08/07/17 21:00 09/06/17 20:59 08/09/17 22:01 Morphine Sulfate (Morphine Sulfate) 2 mg Q4H PRN IVP severe pain 7-10 08/06/17 22:45 08/13/17 22:44 Nitroglycerin (Ntg) 0.4 mg Q5M X 3 DOSES PRN SL Prn Chest Pain 08/06/17 22:45 09/05/17 22:44 Ondansetron HCl (Zofran) 4 mg Q6H PRN IVP Nausea & Vomiting 08/06/17 22:45 09/05/17 22:44 Pantoprazole (Protonix) 40 mg DAILY ORAL 08/09/17 16:30 09/08/17 16:29 08/09/17 18:15 Polyethylene Glycol (Miralax) 17 gm HSPRN PRN ORAL Constipation 08/06/17 22:45 09/05/17 22:44 Sevelamer Carbonate (Renvela) 800 mg TID@0800,1200,1700 ORAL 08/07/17 08:00 09/06/17 07:59 08/09/17 18:14 Sodium Chloride 1,000 ml @ 50 mls/hr Q20H IVLG 08/09/17 16:00 09/08/17 15:59 08/09/17 18:17 Tamsulosin HCl (Flomax) 0.4 mg Q12HR ORAL 08/07/17 21:00 09/06/17 20:59 08/09/17 22:01 Temazepam (Restoril) 15 mg HSPRN PRN ORAL Insomnia 08/06/17 22:45 08/13/17 22:44 Assessment/Plan Status: stable, progressing Assessment/Plan mood d/o mdd agitation -Fatmata Kang M.D. Aug 09, 2017 22:46
[2017-08-10] VITALS: BP 120/62
[2017-08-10 04:00] VITALS: BP 139/64
[2017-08-10] MEDS: NovoLOG Insulin Flexpen SUBQ SCH ×7 (06:24→21:00)
[2017-08-10 07:26] LABS: BASOPHILS % (AUTO) 0.7 % (0.0-2.0); HEMATOCRIT 25.7 % (42.0-52.0); HEMOGLOBIN 8.1 G/DL (14.2-18.0); LYMPHOCYTES % (AUTO) 23.5 % (20.0-45.0); MEAN CORPUSCULAR VOLUME 101 FL (80-99); MONOCYTES % (AUTO) 8.5 % (1.0-10.0); NEUTROPHILS % (AUTO) 62.3 % (45.0-75.0); PLATELET COUNT 172 K/UL (150-450); RED BLOOD COUNT 2.54 M/UL (4.70-6.10); RED CELL DISTRIBUTION WIDTH 14.7 % (11.6-14.8); WHITE BLOOD COUNT 6.4 K/UL (4.8-10.8)
[2017-08-10 07:57] LABS: CREATINE KINASE 240 U/L (26-308)
[2017-08-10 08:11] VITALS: BP 142/88
[2017-08-10 08:22] LABS: ALANINE AMINOTRANSFERASE 13 U/L (12-78); ALBUMIN 2.4 G/DL (3.4-5.0); ALBUMIN/GLOBULIN RATIO 0.7 (1.0-2.7); ALKALINE PHOSPHATASE 78 U/L (46-116); ANION GAP 13 mmol/L (5-15); ASPARTATE AMINO TRANSFERASE 14 U/L (15-37); BLOOD UREA NITROGEN 64 mg/dL (7-18); CALCIUM 8.5 MG/DL (8.5-10.1); CARBON DIOXIDE 14 MMOL/L (21-32); CHLORIDE 113 MMOL/L (98-107); CHOLESTEROL 83 MG/DL (< 200); CREATININE 4.7 MG/DL (0.55-1.30); FERRITIN 888 NG/ML (8-388); GAMMA GLUTAMYL TRANSPEPTIDASE 10 U/L (5-85); HDL CHOLESTEROL 29 MG/DL (40-60); PHOSPHORUS 3.6 MG/DL (2.5-4.9); POTASSIUM 5.9 MMOL/L (3.5-5.1); SODIUM 140 MMOL/L (136-145); TRIGLYCERIDES 76 MG/DL (30-150)
[2017-08-10 08:44] LABS: BILIRUBIN,TOTAL 0.5 MG/DL (0.2-1.0)
--- NOTE | 2017-08-10 09:04 | General Progress Note ---
Assessment/Plan Problem List: (1) ESRD (end stage renal disease) ICD Codes: N18.6 - End stage renal disease SNOMED: 43805777 (2) History of simultaneous kidney and pancreas transplant ICD Codes: Z94.0 - History of simultaneous kidney and pancreas transplant; Z94.83 - Pancreas transplant status SNOMED: 225700668 (3) Uncontrolled diabetes mellitus ICD Codes: E11.65 - Type 2 diabetes mellitus with hyperglycemia SNOMED: 789807869 Assessment/Plan continue Levemir 10 units bid continue Novolog 6 units ac tid continue NISS Subjective Allergies: Coded Allergies: CEFEPIME (Verified Allergy, Intermediate, Rash, 01/23/13) All Systems: reviewed and negative except above Subjective events noted Objective Last 24 Hour Vital Signs Date Time Temp Pulse Resp B/P (MAP) Pulse Ox O2 Delivery O2 Flow Rate FiO2 08/10/17 08:11 97.6 86 22 142/88 97 Room Air 08/10/17 04:00 98.2 70 19 139/64 96 Room Air 08/10/17 00:00 Room Air 08/10/17 00:00 98.2 70 20 120/62 97 08/09/17 22:01 80 126/63 08/09/17 20:00 98.8 80 20 126/63 96 08/09/17 20:00 Room Air 08/09/17 19:14 79 18 Room Air 21 08/09/17 18:15 86 121/86 08/09/17 16:00 98.6 86 19 121/86 98 86 08/09/17 12:00 98.9 78 19 157/76 98 78 Intake and Output 08/09/17 08/10/17 19:00 07:00 Intake Total 1045 ml 720 ml Output Total 450 ml 850 ml Balance 595 ml -130 ml Intake Oral 240 ml 120 ml IV Total 805 ml 600 ml Output Urine Total 450 ml 850 ml Laboratory Tests 08/10/17 05:40: White Blood Count 6.4, Red Blood Count 2.54L, Hemoglobin 8.1L, Hematocrit 25.7L , Mean Corpuscular Volume 101H, Mean Corpuscular Hemoglobin 32.0H, Mean Corpuscular Hemoglobin Concent 31.7L, Red Cell Distribution Width 14.7, Platelet Count 172, Mean Platelet Volume 6.7, Neutrophils (%) (Auto) 62.3, Lymphocytes (%) (Auto) 23.5, Monocytes (%) (Auto) 8.5, Eosinophils (%) (Auto) 5.0H, Basophils (%) (Auto) 0.7, Erythrocyte Sedimentation Rate 74H, Sodium Level 140, Potassium Level 5.9H, Chloride Level 113H, Carbon Dioxide Level 14L, Anion Gap 13, Blood Urea Nitrogen 64H, Creatinine 4.7H, Estimat Glomerular Filtration Rate 12.7, Glucose Level 235#H, Hemoglobin A1c 7.1H, Uric Acid 6.2, Calcium Level 8.5, Phosphorus Level 3.6, Magnesium Level 1.9, Ferritin 888H, Total Bilirubin 0.5, Gamma Glutamyl Transpeptidase 10, Aspartate Amino Transf ( AST/SGOT) 14L, Alanine Aminotransferase (ALT/SGPT) 13, Alkaline Phosphatase 78, Total Creatine Kinase 240, Troponin I 0.029, Pro-B-Type Natriuretic Peptide 2872H, Total Protein 5.9L, Albumin 2.4L, Globulin 3.5, Albumin/Globulin Ratio 0.7L, Triglycerides Level 76, Cholesterol Level 83, LDL Cholesterol 50, HDL Cholesterol 29L, Cholesterol/HDL Ratio 2.9L, Vitamin B12 Level 508, Thyroid Stimulating Hormone (TSH) 1.628 Height (Feet): 5 Height (Inches): 8.00 Weight (Pounds): 209 General Appearance: no apparent distress EENT: normal ENT inspection Neck: normal alignment Cardiovascular: normal rate Respiratory/Chest: lungs clear Abdomen: normal bowel sounds Objective Current Medications Medications (Trade) Dose Ordered Sig/Dunia Route PRN Reason Start Time Stop Time Status Last Admin Dose Admin Acetaminophen (Tylenol) 650 mg Q4H PRN ORAL fever 08/06/17 22:45 09/05/17 22:44 08/07/17 10:56 Albuterol/ Ipratropium (Albuterol/ Ipratropium) 3 ml Q4H PRN HHN Shortness of Breath 08/06/17 22:45 08/11/17 22:44 Amlodipine Besylate (Norvasc) 5 mg BID ORAL 08/09/17 18:00 09/06/17 08:59 08/09/17 18:15 Azathioprine (Imuran) 50 mg DAILY ORAL 08/07/17 09:00 09/06/17 08:59 08/09/17 07:52 Chlorhexidine Gluconate (Eloisa-Hex 2%) 1 applic DAILY@2000 TOPIC 08/07/17 20:00 09/06/17 19:59 08/09/17 22:00 Clonidine HCl (Catapres Tab) 0.1 mg Q4H PRN ORAL sbp more than 160 08/06/17 22:45 09/05/17 22:44 08/07/17 10:25 Daptomycin 500 mg/ Sodium Chloride 55 ml @ 110 mls/hr Q48H IV 08/07/17 14:00 08/14/17 13:59 08/09/17 13:57 Dextrose (Dextrose 50%) STAT PRN IV Hypoglycemia 08/08/17 09:00 09/07/17 08:59 Docusate Sodium (Colace) 100 mg TID ORAL 08/09/17 18:00 09/08/17 17:59 08/09/17 18:14 Duloxetine HCl (Cymbalta) 30 mg DAILY ORAL 08/07/17 09:00 09/06/17 08:59 08/09/17 07:54 Finasteride (Proscar) 5 mg DAILY ORAL 08/07/17 09:00 09/06/17 08:59 08/09/17 07:54 Heparin Sodium (Porcine) (Heparin 5000 units/ml) 5,000 units EVERY 12 HOURS SUBQ 08/07/17 09:00 09/06/17 08:59 08/09/17 22:23 Insulin Aspart (NovoLOG) BEFORE MEALS AND HS SUBQ 08/07/17 06:30 09/06/17 06:29 08/10/17 06:24 Insulin Aspart (NovoLOG) 8 units NOVOTIAC SUBQ 08/08/17 09:00 09/07/17 08:59 08/09/17 12:42 Insulin Detemir (Levemir) 10 units BID SUBQ 08/09/17 21:00 09/08/17 20:59 08/09/17 21:00 Metoprolol Tartrate (Lopressor) 50 mg Q12HR ORAL 08/07/17 21:00 09/06/17 20:59 08/09/17 22:01 Morphine Sulfate (Morphine Sulfate) 2 mg Q4H PRN IVP severe pain 7-10 08/06/17 22:45 08/13/17 22:44 Nitroglycerin (Ntg) 0.4 mg Q5M X 3 DOSES PRN SL Prn Chest Pain 08/06/17 22:45 09/05/17 22:44 Ondansetron HCl (Zofran) 4 mg Q6H PRN IVP Nausea & Vomiting 08/06/17 22:45 09/05/17 22:44 Pantoprazole (Protonix) 40 mg DAILY ORAL 08/09/17 16:30 09/08/17 16:29 08/09/17 18:15 Polyethylene Glycol (Miralax) 17 gm HSPRN PRN ORAL Constipation 08/06/17 22:45 09/05/17 22:44 Sevelamer Carbonate (Renvela) 800 mg TID@0800,1200,1700 ORAL 08/07/17 08:00 09/06/17 07:59 08/09/17 18:14 Sodium Chloride 1,000 ml @ 50 mls/hr Q20H IVLG 08/09/17 16:00 09/08/17 15:59 08/09/17 18:17 Tamsulosin HCl (Flomax) 0.4 mg Q12HR ORAL 08/07/17 21:00 09/06/17 20:59 08/09/17 22:01 Temazepam (Restoril) 15 mg HSPRN PRN ORAL Insomnia 08/06/17 22:45 08/13/17 22:44 Item Value Date Time Bedside Blood Glucose 229 mg/dl H 08/10/17 0630 Bedside Blood Glucose 122 mg/dl H 08/09/17 2223 Bedside Blood Glucose 106 mg/dl 08/09/17 1800 Bedside Blood Glucose 254 mg/dl H 08/09/17 1242 Bedside Blood Glucose 211 mg/dl H 08/09/17 0805 Bedside Blood Glucose 118 mg/dl 08/09/17 0609 MALKA SHERIFF Aug 10, 2017 09:04
[2017-08-10] MEDS: Renvela 800mg Pkt ORAL SCH ×3 (09:07→17:31)
[2017-08-10] MEDS: azaTHIOprine 50 MG TAB ORAL SCH (09:07)
[2017-08-10] MEDS: Tamsulosin 0.4mg cap ORAL SCH ×2 (09:07→22:08)
[2017-08-10] MEDS: Docusate 100mg cap ORAL SCH ×3 (09:07→17:31)
[2017-08-10] MEDS: DULoxetine 30mg cap ORAL SCH (09:07)
[2017-08-10] MEDS: Metoprolol Tartrate 50mg tab ORAL SCH ×2 (09:08→22:08)
[2017-08-10] MEDS: Heparin 5000 units/ml inj SUBQ SCH ×2 (09:17→22:10)
[2017-08-10] MEDS: Levemir Flexpen SUBQ SCH ×2 (09:18→18:00)
--- NOTE | 2017-08-10 10:00 | Diagnostic Imaging Report ---
Indication: Shortness of breath Technique: One view of the chest Comparison: 06/05/2017 Findings: There is an old healed left rib fracture deformity. There is mild central bronchial wall thickening which appears similar to prior exam. No acute infiltrates, effusions, or congestion. Previously demonstrated PICC has been removed. No other significant interim change Impression: No acute process
--- NOTE | 2017-08-10 11:01 | Infectious Diseases Prog Note ---
Assessment/Plan Assessment/Plan ASSESSMENT: The patient is a 62-year-old male with: Persistent Gram positive bacteremia- likely 2ry to infected PICC line- r/o endocarditis -s/p PICC removal 08/09 -08/06 Bcx / Staph epi/MRSE (labeld peripheral), Bcx 08/07 NTD, 08/08 (line) 2/ 2 MRSE; 08/09 p Low-grade fever/leukocytosis- resolved -u/a no pyuria, ucx NTD -CXR no acute disease Uncontrolled diabetes, probably due to sepsis. 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 -History of renal and pancreas transplant about 10 years ago. 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 - History of suicidal attempts in the past. -. History of myocardial infarction. -. History of anemia. -. History of colon polyps. PLAN: -Continue daptomycin #4 for S. epi bacteremia; duration to follow pending repeat Bcx and 2d echo -08/09 SP Aztreonam #3 -f/u repeat bcx and echo - Monitor CBC/BMP, temperatuers -aspiration precautions Thank you, Dr. Delgado, for allowing me to participate in the care of this patient. I will follow the patient with you during this hospitalization. Subjective Allergies: Coded Allergies: CEFEPIME (Verified Allergy, Intermediate, Rash, 01/23/13) Subjective afebrile in 72hrs picc line removed awaiting repeat Bcx Objective Vital Signs Last 24 Hour Vital Signs Date Time Temp Pulse Resp B/P (MAP) Pulse Ox O2 Delivery O2 Flow Rate FiO2 08/10/17 09:08 86 142/88 08/10/17 09:08 86 142/88 08/10/17 09:05 86 18 Room Air 21 08/10/17 08:11 97.6 86 22 142/88 97 Room Air 08/10/17 04:00 98.2 70 19 139/64 96 Room Air 08/10/17 00:00 Room Air 08/10/17 00:00 98.2 70 20 120/62 97 08/09/17 22:01 80 126/63 08/09/17 20:00 98.8 80 20 126/63 96 1/29/18 20:00 Room Air 08/09/17 19:14 79 18 Room Air 21 08/09/17 18:15 86 121/86 08/09/17 16:00 98.6 86 19 121/86 98 86 08/09/17 12:00 98.9 78 19 157/76 98 78 Height (Feet): 5 Height (Inches): 8.00 Weight (Pounds): 209 Objective HEENT: No pale conjunctivae. No icterus. CHEST: Clear. HEART: S1 and S2. ABDOMEN: Soft, obese, nontender. EXTREMITIES: picc line removed, no rash NEUROLOGIC: Awake and alert. SKIN: The patient has scattered scratch velasquez on the upper and lower extremities. Microbiology Date/Time Source Procedure Growth Status 08/08/17 16:38 Blood Blood Culture - Preliminary NO GROWTH AFTER 24 HOURS Resulted 08/08/17 14:30 Blood Blood Culture - Preliminary Resulted 08/07/17 14:40 Blood Blood Culture - Preliminary NO GROWTH AFTER 48 HOURS Resulted 08/07/17 21:00 Urine,Clean Catch Urine Culture - Final Mixed Gram Positive Organism Complete Laboratory Tests Test 08/10/17 05:40 White Blood Count 6.4 K/UL (4.8-10.8) Red Blood Count 2.54 M/UL (4.70-6.10) L Hemoglobin 8.1 G/DL (14.2-18.0) L Hematocrit 25.7 % (42.0-52.0) L Mean Corpuscular Volume 101 FL (80-99) H Mean Corpuscular Hemoglobin 32.0 PG (27.0-31.0) H Mean Corpuscular Hemoglobin Concent 31.7 G/DL (32.0-36.0) L Red Cell Distribution Width 14.7 % (11.6-14.8) Platelet Count 172 K/UL (150-450) Mean Platelet Volume 6.7 FL (6.5-10.1) Neutrophils (%) (Auto) 62.3 % (45.0-75.0) Lymphocytes (%) (Auto) 23.5 % (20.0-45.0) Monocytes (%) (Auto) 8.5 % (1.0-10.0) Eosinophils (%) (Auto) 5.0 % (0.0-3.0) H Basophils (%) (Auto) 0.7 % (0.0-2.0) Erythrocyte Sedimentation Rate 74 MM/HR (0-20) H Sodium Level 140 MMOL/L (136-145) Potassium Level 5.9 MMOL/L (3.5-5.1) H Chloride Level 113 MMOL/L (98-107) H Carbon Dioxide Level 14 MMOL/L (21-32) L Anion Gap 13 mmol/L (5-15) Blood Urea Nitrogen 64 mg/dL (7-18) H Creatinine 4.7 MG/DL (0.55-1.30) H Estimat Glomerular Filtration Rate 12.7 mL/min (>60) Glucose Level 235 MG/DL (74-106) #H Hemoglobin A1c 7.1 % (4.3-6.0) H Uric Acid 6.2 MG/DL (2.6-7.2) Calcium Level 8.5 MG/DL (8.5-10.1) Phosphorus Level 3.6 MG/DL (2.5-4.9) Magnesium Level 1.9 MG/DL (1.8-2.4) Ferritin 888 NG/ML (8-388) H Total Bilirubin 0.5 MG/DL (0.2-1.0) Gamma Glutamyl Transpeptidase 10 U/L (5-85) Aspartate Amino Transf (AST/SGOT) 14 U/L (15-37) L Alanine Aminotransferase (ALT/SGPT) 13 U/L (12-78) Alkaline Phosphatase 78 U/L (46-116) Total Creatine Kinase 240 U/L (26-308) Troponin I 0.029 ng/mL (0.000-0.056) Pro-B-Type Natriuretic Peptide 2872 pg/mL (0-125) H Total Protein 5.9 G/DL (6.4-8.2) L Albumin 2.4 G/DL (3.4-5.0) L Globulin 3.5 g/dL Albumin/Globulin Ratio 0.7 (1.0-2.7) L Triglycerides Level 76 MG/DL (30-150) Cholesterol Level 83 MG/DL (< 200) LDL Cholesterol 50 mg/dL (<100) HDL Cholesterol 29 MG/DL (40-60) L Cholesterol/HDL Ratio 2.9 (3.3-4.4) L Vitamin B12 Level 508 PG/ML (193-986) Thyroid Stimulating Hormone (TSH) 1.628 uiU/mL (0.358-3.740) Current Medications Medications (Trade) Dose Ordered Sig/Dunia Route PRN Reason Start Time Stop Time Status Last Admin Dose Admin Acetaminophen (Tylenol) 650 mg Q4H PRN ORAL fever 08/06/17 22:45 09/05/17 22:44 08/07/17 10:56 Albuterol/ Ipratropium (Albuterol/ Ipratropium) 3 ml Q4H PRN HHN Shortness of Breath 08/06/17 22:45 08/11/17 22:44 Amlodipine Besylate (Norvasc) 5 mg BID ORAL 08/09/17 18:00 09/06/17 08:59 08/10/17 09:08 Azathioprine (Imuran) 50 mg DAILY ORAL 08/07/17 09:00 09/06/17 08:59 08/10/17 09:07 Chlorhexidine Gluconate (Eloisa-Hex 2%) 1 applic DAILY@2000 TOPIC 08/07/17 20:00 09/06/17 19:59 08/09/17 22:00 Clonidine HCl (Catapres Tab) 0.1 mg Q4H PRN ORAL sbp more than 160 08/06/17 22:45 09/05/17 22:44 08/07/17 10:25 Daptomycin 500 mg/ Sodium Chloride 55 ml @ 110 mls/hr Q48H IV 08/07/17 14:00 08/14/17 13:59 08/09/17 13:57 Dextrose (Dextrose 50%) STAT PRN IV Hypoglycemia 08/08/17 09:00 09/07/17 08:59 Docusate Sodium (Colace) 100 mg TID ORAL 08/09/17 18:00 09/08/17 17:59 08/10/17 09:07 Duloxetine HCl (Cymbalta) 30 mg DAILY ORAL 08/07/17 09:00 09/06/17 08:59 08/10/17 09:07 Finasteride (Proscar) 5 mg DAILY ORAL 08/07/17 09:00 09/06/17 08:59 08/10/17 09:08 Heparin Sodium (Porcine) (Heparin 5000 units/ml) 5,000 units EVERY 12 HOURS SUBQ 08/07/17 09:00 09/06/17 08:59 08/10/17 09:17 Insulin Aspart (NovoLOG) BEFORE MEALS AND HS SUBQ 08/07/17 06:30 09/06/17 06:29 08/10/17 06:24 Insulin Aspart (NovoLOG) 8 units NOVOTIAC SUBQ 08/08/17 09:00 09/07/17 08:59 08/10/17 09:17 Insulin Detemir (Levemir) 10 units BID SUBQ 08/09/17 21:00 09/08/17 20:59 08/10/17 09:18 Metoprolol Tartrate (Lopressor) 50 mg Q12HR ORAL 08/07/17 21:00 09/06/17 20:59 08/10/17 09:08 Morphine Sulfate (Morphine Sulfate) 2 mg Q4H PRN IVP severe pain 7-10 08/06/17 22:45 08/13/17 22:44 Nitroglycerin (Ntg) 0.4 mg Q5M X 3 DOSES PRN SL Prn Chest Pain 08/06/17 22:45 09/05/17 22:44 Ondansetron HCl (Zofran) 4 mg Q6H PRN IVP Nausea & Vomiting 08/06/17 22:45 09/05/17 22:44 Pantoprazole (Protonix) 40 mg DAILY ORAL 08/09/17 16:30 09/08/17 16:29 08/10/17 09:08 Polyethylene Glycol (Miralax) 17 gm HSPRN PRN ORAL Constipation 08/06/17 22:45 09/05/17 22:44 Sevelamer Carbonate (Renvela) 800 mg TID@0800,1200,1700 ORAL 08/07/17 08:00 09/06/17 07:59 08/10/17 09:07 Sodium Chloride 1,000 ml @ 50 mls/hr Q20H IVLG 08/09/17 16:00 09/08/17 15:59 08/09/17 18:17 Tamsulosin HCl (Flomax) 0.4 mg Q12HR ORAL 08/07/17 21:00 09/06/17 20:59 08/10/17 09:07 Temazepam (Restoril) 15 mg HSPRN PRN ORAL Insomnia 08/06/17 22:45 08/13/17 22:44 Monique Read M.D. Aug 10, 2017 11:01
[2017-08-10] MEDS ORDERED: Sodium Polystyrene Sulfonate 15gm Powder ORAL ONE (11:45)
[2017-08-10 12:15] VITALS: BP 146/70
[2017-08-10] MEDS: Sodium Citrate 30ml ORAL SCH ×3 (13:39→22:08)
--- NOTE | 2017-08-10 15:23 | Nephrology Progress Note ---
Assessment/Plan Problem List: (1) CKD (chronic kidney disease), stage III (2) Uncontrolled diabetes mellitus (3) BPH (benign prostatic hyperplasia) (4) Anemia (5) Nephropathy, diabetic Assessment has CKD and was admitted for DM OOC BS is being managed by Endo Also has Bacteremia due to Picc line insertion at [facility] (1) CKD (chronic kidney disease), stage III, superimposed acute- Cr unchanged since last admit (2) Dehydration- Partly due to hyperglycemia (3) Hyperglycemia due to type 2 diabetes mellitus (4) BPH (benign prostatic hypertrophy) (5) Nephropathy, diabetic (6) History of simultaneous kidney and pancreas transplant (7) UTI (urinary tract infection) (8) Anemia of CKD Plan Plan: check for retention via JOHNNY was negative for retention Slow Hydrate- BP and BS control- Flomax PO- monitor renal parameters Anemia [place] EPO SQ Kayexelate and Bicitra Antibiotics for bacterimia previous workup: 2D Echo: Left ventricular ejection fraction estimated to be 55 %. No evidence of left ventricular hypertrophy. Subjective ROS Limited/Unobtainable: No Constitutional: Reports: malaise Objective Objective Last 24 Hour Vital Signs Date Time Temp Pulse Resp B/P (MAP) Pulse Ox O2 Delivery O2 Flow Rate FiO2 08/10/17 12:15 97.1 80 21 146/70 97 Room Air 08/10/17 09:08 86 142/88 08/10/17 09:08 86 142/88 08/10/17 09:05 86 18 Room Air 08/10/17 08:11 97.6 86 22 142/88 97 Room Air 08/10/17 04:00 98.2 70 19 139/64 96 Room Air 08/10/17 00:00 Room Air 08/10/17 00:00 98.2 70 20 120/62 97 08/09/17 22:01 80 126/63 08/09/17 20:00 98.8 80 20 126/63 96 08/09/17 20:00 Room Air 08/09/17 19:14 79 18 Room Air 21 08/09/17 18:15 86 121/86 08/09/17 16:00 98.6 86 19 121/86 98 86 Intake and Output 08/09/17 08/10/17 19:00 07:00 Intake Total 1045 ml 720 ml Output Total 450 ml 850 ml Balance 595 ml -130 ml Intake Oral 240 ml 120 ml IV Total 805 ml 600 ml Output Urine Total 450 ml 850 ml Laboratory Tests 08/10/17 05:40: White Blood Count 6.4, Red Blood Count 2.54L, Hemoglobin 8.1L, Hematocrit 25.7L , Mean Corpuscular Volume 101H, Mean Corpuscular Hemoglobin 32.0H, Mean Corpuscular Hemoglobin Concent 31.7L, Red Cell Distribution Width 14.7, Platelet Count 172, Mean Platelet Volume 6.7, Neutrophils (%) (Auto) 62.3, Lymphocytes (%) (Auto) 23.5, Monocytes (%) (Auto) 8.5, Eosinophils (%) (Auto) 5.0H, Basophils (%) (Auto) 0.7, Erythrocyte Sedimentation Rate 74H, Sodium Level 140, Potassium Level 5.9H, Chloride Level 113H, Carbon Dioxide Level 14L, Anion Gap 13, Blood Urea Nitrogen 64H, Creatinine 4.7H, Estimat Glomerular Filtration Rate 12.7, Glucose Level 235#H, Hemoglobin A1c 7.1H, Uric Acid 6.2, Calcium Level 8.5, Phosphorus Level 3.6, Magnesium Level 1.9, Ferritin 888H, Total Bilirubin 0.5, Gamma Glutamyl Transpeptidase 10, Aspartate Amino Transf ( AST/SGOT) 14L, Alanine Aminotransferase (ALT/SGPT) 13, Alkaline Phosphatase 78, Total Creatine Kinase 240, Troponin I 0.029, Pro-B-Type Natriuretic Peptide 2872H, Total Protein 5.9L, Albumin 2.4L, Globulin 3.5, Albumin/Globulin Ratio 0.7L, Triglycerides Level 76, Cholesterol Level 83, LDL Cholesterol 50, HDL Cholesterol 29L, Cholesterol/HDL Ratio 2.9L, Vitamin B12 Level 508, Thyroid Stimulating Hormone (TSH) 1.628 Height (Feet): 5 Height (Inches): 8.00 Weight (Pounds): 209 General Appearance: no apparent distress, lethargic Neck: limited range of motion Cardiovascular: normal rate Respiratory/Chest: decreased breath sounds Abdomen: soft BERT ALONSO Aug 10, 2017 15:23
[2017-08-10 16:00] VITALS: BP 140/72
--- NOTE | 2017-08-10 16:55 | Internal Med Progress Note ---
Subjective Date of Service: Aug 10, 2017 Physician Name Dee Maher Attending Physician Christopher Rosado MD Current Medications Medications (Trade) Dose Ordered Sig/Dunia Route PRN Reason Start Time Stop Time Status Last Admin Dose Admin Acetaminophen (Tylenol) 650 mg Q4H PRN ORAL fever 08/06/17 22:45 09/05/17 22:44 08/07/17 10:56 Albuterol/ Ipratropium (Albuterol/ Ipratropium) 3 ml Q4H PRN HHN Shortness of Breath 08/06/17 22:45 08/11/17 22:44 Amlodipine Besylate (Norvasc) 5 mg BID ORAL 08/09/17 18:00 09/06/17 08:59 08/10/17 09:08 Azathioprine (Imuran) 50 mg DAILY ORAL 08/07/17 09:00 09/06/17 08:59 08/10/17 09:07 Chlorhexidine Gluconate (Eloisa-Hex 2%) 1 applic DAILY@2000 TOPIC 08/07/17 20:00 09/06/17 19:59 08/09/17 22:00 Clonidine HCl (Catapres Tab) 0.1 mg Q4H PRN ORAL sbp more than 160 08/06/17 22:45 09/05/17 22:44 08/07/17 10:25 Daptomycin 500 mg/ Sodium Chloride 55 ml @ 110 mls/hr Q48H IV 08/07/17 14:00 08/14/17 13:59 08/09/17 13:57 Dextrose (Dextrose 50%) STAT PRN IV Hypoglycemia 08/08/17 09:00 09/07/17 08:59 Docusate Sodium (Colace) 100 mg TID ORAL 08/09/17 18:00 09/08/17 17:59 08/10/17 12:36 Duloxetine HCl (Cymbalta) 30 mg DAILY ORAL 08/07/17 09:00 09/06/17 08:59 08/10/17 09:07 Epoetin Jose (Procrit (for non ESRD use)) 10,000 units MON-WED-WED SUBQ 08/11/17 21:00 09/10/17 20:59 Finasteride (Proscar) 5 mg DAILY ORAL 08/07/17 09:00 09/06/17 08:59 08/10/17 09:08 Heparin Sodium (Porcine) (Heparin 5000 units/ml) 5,000 units EVERY 12 HOURS SUBQ 08/07/17 09:00 09/06/17 08:59 08/10/17 09:17 Insulin Aspart (NovoLOG) BEFORE MEALS AND HS SUBQ 08/07/17 06:30 09/06/17 06:29 08/10/17 12:45 Insulin Aspart (NovoLOG) 8 units NOVOTIAC SUBQ 08/08/17 09:00 09/07/17 08:59 08/10/17 12:46 Insulin Detemir (Levemir) 10 units BID SUBQ 08/09/17 21:00 09/08/17 20:59 08/10/17 09:18 Metoprolol Tartrate (Lopressor) 50 mg Q12HR ORAL 08/07/17 21:00 09/06/17 20:59 08/10/17 09:08 Morphine Sulfate (Morphine Sulfate) 2 mg Q4H PRN IVP severe pain 7-10 08/06/17 22:45 08/13/17 22:44 Nitroglycerin (Ntg) 0.4 mg Q5M X 3 DOSES PRN SL Prn Chest Pain 08/06/17 22:45 09/05/17 22:44 Ondansetron HCl (Zofran) 4 mg Q6H PRN IVP Nausea & Vomiting 08/06/17 22:45 09/05/17 22:44 Pantoprazole (Protonix) 40 mg DAILY ORAL 08/09/17 16:30 09/08/17 16:29 08/10/17 09:08 Polyethylene Glycol (Miralax) 17 gm HSPRN PRN ORAL Constipation 08/06/17 22:45 09/05/17 22:44 Sevelamer Carbonate (Renvela) 800 mg TID@0800,1200,1700 ORAL 08/07/17 08:00 09/06/17 07:59 08/10/17 12:46 Sodium Chloride 1,000 ml @ 50 mls/hr Q20H IVLG 08/09/17 16:00 09/08/17 15:59 08/10/17 12:37 Sodium Citrate (Bicitra) 30 ml EVERY 6 HOURS ORAL 08/10/17 12:00 09/09/17 11:59 08/10/17 13:39 Tamsulosin HCl (Flomax) 0.4 mg Q12HR ORAL 08/07/17 21:00 09/06/17 20:59 08/10/17 09:07 Temazepam (Restoril) 15 mg HSPRN PRN ORAL Insomnia 08/06/17 22:45 08/13/17 22:44 Allergies: Coded Allergies: CEFEPIME (Verified Allergy, Intermediate, Rash, 01/23/13) ROS Limited/Unobtainable: No Constitutional: Reports: no symptoms HEENT: Reports: no symptoms Cardiovascular: Reports: no symptoms Respiratory: Reports: no symptoms Gastrointestinal/Abdominal: Reports: no symptoms Genitourinary: Reports: no symptoms Neurologic/Psychiatric: Reports: no symptoms Subjective 62 YO M admitted with hyperglycemia. Cover for Int Med-Dr Rosado.. Fingerstick glucose more stable: 229-281. Objective Last Vital Signs Date Time Temp Pulse Resp B/P (MAP) Pulse Ox O2 Delivery O2 Flow Rate FiO2 08/10/17 12:15 97.1 80 21 146/70 97 Room Air 08/10/17 09:05 21 Laboratory Tests Test 08/10/17 05:40 White Blood Count 6.4 K/UL (4.8-10.8) Red Blood Count 2.54 M/UL (4.70-6.10) L Hemoglobin 8.1 G/DL (14.2-18.0) L Hematocrit 25.7 % (42.0-52.0) L Mean Corpuscular Volume 101 FL (80-99) H Mean Corpuscular Hemoglobin 32.0 PG (27.0-31.0) H Mean Corpuscular Hemoglobin Concent 31.7 G/DL (32.0-36.0) L Red Cell Distribution Width 14.7 % (11.6-14.8) Platelet Count 172 K/UL (150-450) Mean Platelet Volume 6.7 FL (6.5-10.1) Neutrophils (%) (Auto) 62.3 % (45.0-75.0) Lymphocytes (%) (Auto) 23.5 % (20.0-45.0) Monocytes (%) (Auto) 8.5 % (1.0-10.0) Eosinophils (%) (Auto) 5.0 % (0.0-3.0) H Basophils (%) (Auto) 0.7 % (0.0-2.0) Erythrocyte Sedimentation Rate 74 MM/HR (0-20) H Sodium Level 140 MMOL/L (136-145) Potassium Level 5.9 MMOL/L (3.5-5.1) H Chloride Level 113 MMOL/L (98-107) H Carbon Dioxide Level 14 MMOL/L (21-32) L Anion Gap 13 mmol/L (5-15) Blood Urea Nitrogen 64 mg/dL (7-18) H Creatinine 4.7 MG/DL (0.55-1.30) H Estimat Glomerular Filtration Rate 12.7 mL/min (>60) Glucose Level 235 MG/DL (74-106) #H Hemoglobin A1c 7.1 % (4.3-6.0) H Uric Acid 6.2 MG/DL (2.6-7.2) Calcium Level 8.5 MG/DL (8.5-10.1) Phosphorus Level 3.6 MG/DL (2.5-4.9) Magnesium Level 1.9 MG/DL (1.8-2.4) Ferritin 888 NG/ML (8-388) H Total Bilirubin 0.5 MG/DL (0.2-1.0) Gamma Glutamyl Transpeptidase 10 U/L (5-85) Aspartate Amino Transf (AST/SGOT) 14 U/L (15-37) L Alanine Aminotransferase (ALT/SGPT) 13 U/L (12-78) Alkaline Phosphatase 78 U/L (46-116) Total Creatine Kinase 240 U/L (26-308) Troponin I 0.029 ng/mL (0.000-0.056) Pro-B-Type Natriuretic Peptide 2872 pg/mL (0-125) H Total Protein 5.9 G/DL (6.4-8.2) L Albumin 2.4 G/DL (3.4-5.0) L Globulin 3.5 g/dL Albumin/Globulin Ratio 0.7 (1.0-2.7) L Triglycerides Level 76 MG/DL (30-150) Cholesterol Level 83 MG/DL (< 200) LDL Cholesterol 50 mg/dL (<100) HDL Cholesterol 29 MG/DL (40-60) L Cholesterol/HDL Ratio 2.9 (3.3-4.4) L Vitamin B12 Level 508 PG/ML (193-986) Thyroid Stimulating Hormone (TSH) 1.628 uiU/mL (0.358-3.740) Microbiology Date/Time Source Procedure Growth Status 08/08/17 16:38 Blood Blood Culture - Preliminary NO GROWTH AFTER 24 HOURS Resulted 08/08/17 14:30 Blood Blood Culture - Preliminary Resulted 08/07/17 21:00 Urine,Clean Catch Urine Culture - Final Mixed Gram Positive Organism Complete Intake and Output 08/09/17 08/10/17 19:00 07:00 Intake Total 1045 ml 720 ml Output Total 450 ml 850 ml Balance 595 ml -130 ml Intake Oral 240 ml 120 ml IV Total 805 ml 600 ml Output Urine Total 450 ml 850 ml Objective General Appearance: WD/WN, no apparent distress, alert Neck: non-tender, normal alignment, supple Cardiovascular: normal peripheral pulses, normal rate, regular rhythm, no gallop/murmur, no JVD Respiratory/Chest: chest wall non-tender, lungs clear, normal breath sounds, no respiratory distress, no accessory muscle use Extremities: normal range of motion, non-tender Neurologic: no motor/sensory deficits Skin: normal pigmentation, warm/dry Assessment/Plan Problem List: (1) Acute hyperglycemia Assessment & Plan: ? secondaary to infection? See ID and endocrinology note. (2) Uncontrolled diabetes mellitus Assessment & Plan: Continue levemir and novolog sliding scale per endocrinology (3) Anemia (4) CKD (chronic kidney disease), stage III Assessment & Plan: See nephrology note. (5) Hyperglycemia due to type 2 diabetes mellitus (6) CAD (coronary artery disease) (7) HTN (hypertension) Assessment & Plan: Cont lopressor and norvasc. (8) Acute hyperglycemia (9) Gastritis (10) BPH (benign prostatic hyperplasia) (11) Hypercholesteremia Status: not improved DEE MAHER Aug 10, 2017 16:55
--- NOTE | 2017-08-10 17:19 | Diagnostic Imaging Report ---
Indication: Acute renal failure, history of renal transplant Technique: Grayscale and duplex images of the kidneys, retroperitoneum, and bladder were obtained. Comparison: 06/01/2017 Findings: Patient is status post bilateral nephrectomy. There is a left renal fossa transplant kidney. It demonstrates a few cysts. No hydronephrosis. Resistive indices range between 7 and 9 Main renal artery peak velocity is 55 cm/s. There is minimal hydronephrosis. Prevoid bladder volume is 443. Postvoid bladder volume is 105. Bladder volumes represent improvement of the previous study Impression: Left iliac fossa transplant kidney, surgically absent bilateral [place] kidneys again demonstrated Negative for hydronephrosis Nonspecific borderline increased resistive indices, also demonstrated previously and not significantly changed. Renal incidentally noted
--- NOTE | 2017-08-10 17:19 | Pulmonology Progress Note ---
Assessment/Plan Problems: (1) Bacteremia (2) Uncontrolled diabetes mellitus (3) Anemia in chronic kidney disease (4) Psychiatric disturbance (5) Anemia (6) Renal transplant recipient Assessment/Plan check electrolytes all reviewed sliding scale iv fluids psych f/u diabetic diet f/u blood culture sensitivities f/u ID recommendations continue abx Subjective ROS Limited/Unobtainable: No Constitutional: Reports: no symptoms HEENT: Repors: no symptoms Respiratory: Reports: no symptoms Allergies: Coded Allergies: CEFEPIME (Verified Allergy, Intermediate, Rash, 01/23/13) Objective Last 24 Hour Vital Signs Date Time Temp Pulse Resp B/P (MAP) Pulse Ox O2 Delivery O2 Flow Rate FiO2 08/10/17 16:00 98.3 81 20 140/72 96 08/10/17 12:15 97.1 80 21 146/70 97 Room Air 08/10/17 09:08 86 142/88 08/10/17 09:08 86 142/88 08/10/17 09:05 86 18 Room Air 21 08/10/17 08:11 97.6 86 22 142/88 97 Room Air 08/10/17 04:00 98.2 70 19 139/64 96 Room Air 08/10/17 00:00 Room Air 08/10/17 00:00 98.2 70 20 120/62 97 08/09/17 22:01 80 126/63 08/09/17 20:00 98.8 80 20 126/63 96 08/09/17 20:00 Room Air 08/09/17 19:14 79 18 Room Air 21 08/09/17 18:15 86 121/86 Intake and Output 08/09/17 08/10/17 19:00 07:00 Intake Total 1045 ml 720 ml Output Total 450 ml 850 ml Balance 595 ml -130 ml Intake Oral 240 ml 120 ml IV Total 805 ml 600 ml Output Urine Total 450 ml 850 ml Objective General Appearance: WN Lines, tubes and drains: peripheral HEENT: normocephalic, atraumatic Neck: non-tender, normal alignment Respiratory/Chest: chest wall non-tender, lungs clear Cardiovascular/Chest: normal peripheral pulses, normal rate Abdomen: normal bowel sounds, non tender Genitourinary/Rectal: normal genital exam, normal rectal exam Skin Exam: normal pigmentation Microbiology Date/Time Source Procedure Growth Status 08/08/17 16:38 Blood Blood Culture - Preliminary NO GROWTH AFTER 24 HOURS Resulted 08/08/17 14:30 Blood Blood Culture - Preliminary Resulted 08/07/17 21:00 Urine,Clean Catch Urine Culture - Final Mixed Gram Positive Organism Complete Laboratory Tests 08/10/17 05:40: White Blood Count 6.4, Red Blood Count 2.54L, Hemoglobin 8.1L, Hematocrit 25.7L , Mean Corpuscular Volume 101H, Mean Corpuscular Hemoglobin 32.0H, Mean Corpuscular Hemoglobin Concent 31.7L, Red Cell Distribution Width 14.7, Platelet Count 172, Mean Platelet Volume 6.7, Neutrophils (%) (Auto) 62.3, Lymphocytes (%) (Auto) 23.5, Monocytes (%) (Auto) 8.5, Eosinophils (%) (Auto) 5.0H, Basophils (%) (Auto) 0.7, Erythrocyte Sedimentation Rate 74H, Sodium Level 140, Potassium Level 5.9H, Chloride Level 113H, Carbon Dioxide Level 14L, Anion Gap 13, Blood Urea Nitrogen 64H, Creatinine 4.7H, Estimat Glomerular Filtration Rate 12.7, Glucose Level 235#H, Hemoglobin A1c 7.1H, Uric Acid 6.2, Calcium Level 8.5, Phosphorus Level 3.6, Magnesium Level 1.9, Ferritin 888H, Total Bilirubin 0.5, Gamma Glutamyl Transpeptidase 10, Aspartate Amino Transf ( AST/SGOT) 14L, Alanine Aminotransferase (ALT/SGPT) 13, Alkaline Phosphatase 78, Total Creatine Kinase 240, Troponin I 0.029, Pro-B-Type Natriuretic Peptide 2872H, Total Protein 5.9L, Albumin 2.4L, Globulin 3.5, Albumin/Globulin Ratio 0.7L, Triglycerides Level 76, Cholesterol Level 83, LDL Cholesterol 50, HDL Cholesterol 29L, Cholesterol/HDL Ratio 2.9L, Vitamin B12 Level 508, Thyroid Stimulating Hormone (TSH) 1.628 Current Medications Medications (Trade) Dose Ordered Sig/Dunia Route PRN Reason Start Time Stop Time Status Last Admin Dose Admin Acetaminophen (Tylenol) 650 mg Q4H PRN ORAL fever 08/06/17 22:45 09/05/17 22:44 08/07/17 10:56 Albuterol/ Ipratropium (Albuterol/ Ipratropium) 3 ml Q4H PRN HHN Shortness of Breath 08/06/17 22:45 08/11/17 22:44 Amlodipine Besylate (Norvasc) 5 mg BID ORAL 08/09/17 18:00 09/06/17 08:59 08/10/17 09:08 Azathioprine (Imuran) 50 mg DAILY ORAL 08/07/17 09:00 09/06/17 08:59 08/10/17 09:07 Chlorhexidine Gluconate (Eloisa-Hex 2%) 1 applic DAILY@2000 TOPIC 08/07/17 20:00 09/06/17 19:59 08/09/17 22:00 Clonidine HCl (Catapres Tab) 0.1 mg Q4H PRN ORAL sbp more than 160 08/06/17 22:45 09/05/17 22:44 08/07/17 10:25 Daptomycin 500 mg/ Sodium Chloride 55 ml @ 110 mls/hr Q48H IV 08/07/17 14:00 08/14/17 13:59 08/09/17 13:57 Dextrose (Dextrose 50%) STAT PRN IV Hypoglycemia 08/08/17 09:00 09/07/17 08:59 Docusate Sodium (Colace) 100 mg TID ORAL 08/09/17 18:00 09/08/17 17:59 08/10/17 12:36 Duloxetine HCl (Cymbalta) 30 mg DAILY ORAL 08/07/17 09:00 09/06/17 08:59 08/10/17 09:07 Epoetin Jose (Procrit (for non ESRD use)) 10,000 units WED-WED-WED SUBQ 08/11/17 21:00 09/10/17 20:59 Finasteride (Proscar) 5 mg DAILY ORAL 08/07/17 09:00 09/06/17 08:59 08/10/17 09:08 Heparin Sodium (Porcine) (Heparin 5000 units/ml) 5,000 units EVERY 12 HOURS SUBQ 08/07/17 09:00 09/06/17 08:59 08/10/17 09:17 Insulin Aspart (NovoLOG) BEFORE MEALS AND HS SUBQ 08/07/17 06:30 09/06/17 06:29 08/10/17 12:45 Insulin Aspart (NovoLOG) 8 units NOVOTIAC SUBQ 08/08/17 09:00 09/07/17 08:59 08/10/17 12:46 Insulin Detemir (Levemir) 10 units BID SUBQ 08/09/17 21:00 09/08/17 20:59 08/10/17 09:18 Metoprolol Tartrate (Lopressor) 50 mg Q12HR ORAL 08/07/17 21:00 09/06/17 20:59 08/10/17 09:08 Morphine Sulfate (Morphine Sulfate) 2 mg Q4H PRN IVP severe pain 7-10 08/06/17 22:45 08/13/17 22:44 Nitroglycerin (Ntg) 0.4 mg Q5M X 3 DOSES PRN SL Prn Chest Pain 08/06/17 22:45 09/05/17 22:44 Ondansetron HCl (Zofran) 4 mg Q6H PRN IVP Nausea & Vomiting 08/06/17 22:45 09/05/17 22:44 Pantoprazole (Protonix) 40 mg DAILY ORAL 08/09/17 16:30 09/08/17 16:29 08/10/17 09:08 Polyethylene Glycol (Miralax) 17 gm HSPRN PRN ORAL Constipation 08/06/17 22:45 09/05/17 22:44 Sevelamer Carbonate (Renvela) 800 mg TID@0800,1200,1700 ORAL 08/07/17 08:00 09/06/17 07:59 08/10/17 12:46 Sodium Chloride 1,000 ml @ 50 mls/hr Q20H IVLG 08/09/17 16:00 09/08/17 15:59 08/10/17 12:37 Sodium Citrate (Bicitra) 30 ml EVERY 6 HOURS ORAL 08/10/17 12:00 09/09/17 11:59 08/10/17 13:39 Tamsulosin HCl (Flomax) 0.4 mg Q12HR ORAL 08/07/17 21:00 09/06/17 20:59 08/10/17 09:07 Temazepam (Restoril) 15 mg HSPRN PRN ORAL Insomnia 08/06/17 22:45 08/13/17 22:44 MARGO GALLEGOS Aug 10, 2017 17:19
--- NOTE | 2017-08-10 17:24 | Cardiology Report ---
APPROVED REPORT EXAM: Two-dimensional and M-mode echocardiogram with Doppler and color Doppler. INDICATION Endocarditis M-Mode DIMENSIONS IVSd1.5 (0.7-1.1cm)Left Atrium (MM)4.6 (1.6-4.0cm) LVDd4.9 (3.5-5.6cm)Aortic Root3.0 (2.0-3.7cm) PWd1.1 (0.7-1.1cm)Aortic Cusp Exc.1.9 (1.5-2.0cm) LVDs3.1 (2.5-4.0cm) PWs1.4 cm Normal left ventricular chamber size, systolic function and wall motion. Left ventricular ejection fraction estimated to be 55-60%. No evidence of left ventricular hypertrophy. No evidence of pericardial or pleural effusion. Mild bi-atrial enlargement by 2D. Focal aortic valve sclerosis with adequate cusp excursion. Thickened mitral valve leaflets with normal excursion. Mild mitral annulus and aortic root calcification. Pulmonic valve is well visualized. Normal tricuspid valve structure. IVC is not obtainable. No echodensity is seen on valves (vegitation), consider AMY if clinically indicated. A color flow and spectral Doppler study was performed and revealed: No aortic regurgitation. Trace mitral regurgitation. Mitral diastolic velocities suggest reduced left ventricular relaxation c/w diastolic dysfunction grade 1. Mild tricuspid regurgitation. Tricuspid systolic velocities suggests peak right ventricular systolic pressure of 35 mmHg Consistent with mild pulmonary hypertension. Pulmonic regurgitation present.
[2017-08-10 20:00] VITALS: BP 146/77
[2017-08-10] MEDS: Dyna-Hex 2% Top Sol 2oz TOPIC SCH (20:00)
--- NOTE | 2017-08-10 22:18 | General Progress Note ---
Assessment/Plan Status: doing well, stable Assessment/Plan The pt is not a dts/dto -cont current meds Subjective Date patient seen: Aug 10, 2017 Neurologic/Psychiatric: Reports: anxiety, emotional problems Allergies: Coded Allergies: CEFEPIME (Verified Allergy, Intermediate, Rash, 01/23/13) Subjective the pt denied SI, no behavioral issues Objective Last 24 Hour Vital Signs Date Time Temp Pulse Resp B/P (MAP) Pulse Ox O2 Delivery O2 Flow Rate FiO2 08/10/17 22:08 83 146/77 08/10/17 20:22 83 18 Room Air 21 08/10/17 20:00 98.2 79 20 146/77 96 08/10/17 17:31 81 140/72 08/10/17 16:00 98.3 81 20 140/72 96 08/10/17 12:15 97.1 80 21 146/70 97 Room Air 08/10/17 09:08 86 142/88 08/10/17 09:08 86 142/88 08/10/17 09:05 86 18 Room Air 21 08/10/17 08:11 97.6 86 22 142/88 97 Room Air 08/10/17 04:00 98.2 70 19 139/64 96 Room Air 08/10/17 00:00 Room Air 08/10/17 00:00 98.2 70 20 120/62 97 Intake and Output 08/09/17 08/10/17 19:00 07:00 Intake Total 1045 ml 720 ml Output Total 450 ml 850 ml Balance 595 ml -130 ml Intake Oral 240 ml 120 ml IV Total 805 ml 600 ml Output Urine Total 450 ml 850 ml Laboratory Tests 08/10/17 05:40: White Blood Count 6.4, Red Blood Count 2.54L, Hemoglobin 8.1L, Hematocrit 25.7L , Mean Corpuscular Volume 101H, Mean Corpuscular Hemoglobin 32.0H, Mean Corpuscular Hemoglobin Concent 31.7L, Red Cell Distribution Width 14.7, Platelet Count 172, Mean Platelet Volume 6.7, Neutrophils (%) (Auto) 62.3, Lymphocytes (%) (Auto) 23.5, Monocytes (%) (Auto) 8.5, Eosinophils (%) (Auto) 5.0H, Basophils (%) (Auto) 0.7, Erythrocyte Sedimentation Rate 74H, Sodium Level 140, Potassium Level 5.9H, Chloride Level 113H, Carbon Dioxide Level 14L, Anion Gap 13, Blood Urea Nitrogen 64H, Creatinine 4.7H, Estimat Glomerular Filtration Rate 12.7, Glucose Level 235#H, Hemoglobin A1c 7.1H, Uric Acid 6.2, Calcium Level 8.5, Phosphorus Level 3.6, Magnesium Level 1.9, Ferritin 888H, Total Bilirubin 0.5, Gamma Glutamyl Transpeptidase 10, Aspartate Amino Transf ( AST/SGOT) 14L, Alanine Aminotransferase (ALT/SGPT) 13, Alkaline Phosphatase 78, Total Creatine Kinase 240, Troponin I 0.029, Pro-B-Type Natriuretic Peptide 2872H, Total Protein 5.9L, Albumin 2.4L, Globulin 3.5, Albumin/Globulin Ratio 0.7L, Triglycerides Level 76, Cholesterol Level 83, LDL Cholesterol 50, HDL Cholesterol 29L, Cholesterol/HDL Ratio 2.9L, Vitamin B12 Level 508, Thyroid Stimulating Hormone (TSH) 1.628 Height (Feet): 5 Height (Inches): 8.00 Weight (Pounds): 209 General Appearance: no apparent distress, alert Neurologic: alert, oriented x 3, responsive, normal mood/affect Fatmata Lu M.D. Aug 10, 2017 22:18
[2017-08-11] VITALS: BP 132/72
[2017-08-11 04:00] VITALS: BP_SYST 114; BP_SYST 157; BP_DIAS 79; BP_DIAS 80
[2017-08-11] MEDS: Sodium Citrate 30ml ORAL SCH ×4 (06:10→21:07)
[2017-08-11] MEDS: NovoLOG Insulin Flexpen SUBQ SCH ×7 (06:12→21:10)
[2017-08-11 07:17] LABS: BASOPHILS % (AUTO) 0.8 % (0.0-2.0); EOSINOPHILS % (AUTO) 4.6 % (0.0-3.0); HEMATOCRIT 26.3 % (42.0-52.0); HEMOGLOBIN 8.3 G/DL (14.2-18.0); LYMPHOCYTES % (AUTO) 17.3 % (20.0-45.0); MEAN CORPUSCULAR VOLUME 100 FL (80-99); MONOCYTES % (AUTO) 7.4 % (1.0-10.0); NEUTROPHILS % (AUTO) 69.9 % (45.0-75.0); PLATELET COUNT 194 K/UL (150-450); RED BLOOD COUNT 2.62 M/UL (4.70-6.10); WHITE BLOOD COUNT 6.8 K/UL (4.8-10.8)
[2017-08-11 07:39] LABS: ALANINE AMINOTRANSFERASE 16 U/L (12-78); ALBUMIN 2.3 G/DL (3.4-5.0); ALBUMIN/GLOBULIN RATIO 0.7 (1.0-2.7); ALKALINE PHOSPHATASE 75 U/L (46-116); ANION GAP 12 mmol/L (5-15); ASPARTATE AMINO TRANSFERASE 21 U/L (15-37); BILIRUBIN,TOTAL 0.4 MG/DL (0.2-1.0); BLOOD UREA NITROGEN 64 mg/dL (7-18); CARBON DIOXIDE 14 MMOL/L (21-32); CHLORIDE 113 MMOL/L (98-107); CREATININE 4.6 MG/DL (0.55-1.30); PHOSPHORUS 4.1 MG/DL (2.5-4.9); POTASSIUM 5.5 MMOL/L (3.5-5.1); SODIUM 139 MMOL/L (136-145)
[2017-08-11 08:37] VITALS: BP 111/65
[2017-08-11] MEDS: Metoprolol Tartrate 50mg tab ORAL SCH ×2 (09:05→21:08)
[2017-08-11] MEDS: azaTHIOprine 50 MG TAB ORAL SCH (09:05)
[2017-08-11] MEDS: Tamsulosin 0.4mg cap ORAL SCH ×2 (09:05→21:08)
[2017-08-11] MEDS: Docusate 100mg cap ORAL SCH ×3 (09:05→17:18)
[2017-08-11] MEDS: Renvela 800mg Pkt ORAL SCH ×3 (09:06→17:18)
[2017-08-11] MEDS: Heparin 5000 units/ml inj SUBQ SCH ×2 (09:07→21:09)
[2017-08-11] MEDS: DULoxetine 30mg cap ORAL SCH (09:11)
[2017-08-11] MEDS: Levemir Flexpen SUBQ SCH ×3 (09:16→18:00)
--- NOTE | 2017-08-11 10:46 | Internal Med Progress Note ---
Subjective Date of Service: Aug 11, 2017 Physician Name Dee Maher Attending Physician Christopher Rosado MD Current Medications Medications (Trade) Dose Ordered Sig/Dunia Route PRN Reason Start Time Stop Time Status Last Admin Dose Admin Acetaminophen (Tylenol) 650 mg Q4H PRN ORAL fever 08/06/17 22:45 09/05/17 22:44 08/07/17 10:56 Albuterol/ Ipratropium (Albuterol/ Ipratropium) 3 ml Q4H PRN HHN Shortness of Breath 08/06/17 22:45 08/11/17 22:44 Amlodipine Besylate (Norvasc) 5 mg BID ORAL 08/09/17 18:00 09/06/17 08:59 08/11/17 09:05 Azathioprine (Imuran) 50 mg DAILY ORAL 08/07/17 09:00 09/06/17 08:59 08/11/17 09:05 Clonidine HCl (Catapres Tab) 0.1 mg Q4H PRN ORAL sbp more than 160 08/06/17 22:45 09/05/17 22:44 08/07/17 10:25 Daptomycin 500 mg/ Sodium Chloride 55 ml @ 110 mls/hr Q48H IV 08/07/17 14:00 08/14/17 13:59 08/09/17 13:57 Dextrose (Dextrose 50%) STAT PRN IV Hypoglycemia 08/08/17 09:00 09/07/17 08:59 08/10/17 18:27 Docusate Sodium (Colace) 100 mg TID ORAL 08/09/17 18:00 09/08/17 17:59 08/11/17 09:05 Duloxetine HCl (Cymbalta) 30 mg DAILY ORAL 08/07/17 09:00 09/06/17 08:59 08/11/17 09:11 Epoetin Jose (Procrit (for non ESRD use)) 10,000 units WED-WED-WED SUBQ 08/11/17 21:00 09/10/17 20:59 Finasteride (Proscar) 5 mg DAILY ORAL 08/07/17 09:00 09/06/17 08:59 08/11/17 09:05 Heparin Sodium (Porcine) (Heparin 5000 units/ml) 5,000 units EVERY 12 HOURS SUBQ 08/07/17 09:00 09/06/17 08:59 08/11/17 09:07 Insulin Aspart (NovoLOG) BEFORE MEALS AND HS SUBQ 08/10/17 21:00 09/09/17 20:59 08/11/17 06:13 Insulin Aspart (NovoLOG) 8 units NOVOTIAC SUBQ 08/08/17 09:00 09/07/17 08:59 08/11/17 06:12 Insulin Detemir (Levemir) 10 units BID SUBQ 08/09/17 21:00 09/08/17 20:59 08/11/17 09:16 Metoprolol Tartrate (Lopressor) 50 mg Q12HR ORAL 08/07/17 21:00 09/06/17 20:59 08/11/17 09:05 Morphine Sulfate (Morphine Sulfate) 2 mg Q4H PRN IVP severe pain 7-10 08/06/17 22:45 08/13/17 22:44 Nitroglycerin (Ntg) 0.4 mg Q5M X 3 DOSES PRN SL Prn Chest Pain 08/06/17 22:45 09/05/17 22:44 Ondansetron HCl (Zofran) 4 mg Q6H PRN IVP Nausea & Vomiting 08/06/17 22:45 09/05/17 22:44 Pantoprazole (Protonix) 40 mg DAILY ORAL 08/09/17 16:30 09/08/17 16:29 08/11/17 09:05 Polyethylene Glycol (Miralax) 17 gm HSPRN PRN ORAL Constipation 08/06/17 22:45 09/05/17 22:44 Sevelamer Carbonate (Renvela) 800 mg TID@0800,1200,1700 ORAL 08/07/17 08:00 09/06/17 07:59 08/11/17 09:06 Sodium Chloride 1,000 ml @ 50 mls/hr Q20H IVLG 08/09/17 16:00 09/08/17 15:59 08/10/17 22:19 Sodium Citrate (Bicitra) 30 ml EVERY 6 HOURS ORAL 08/10/17 12:00 09/09/17 11:59 08/11/17 06:10 Tamsulosin HCl (Flomax) 0.4 mg Q12HR ORAL 08/07/17 21:00 09/06/17 20:59 08/11/17 09:05 Temazepam (Restoril) 15 mg HSPRN PRN ORAL Insomnia 08/06/17 22:45 08/13/17 22:44 Allergies: Coded Allergies: CEFEPIME (Verified Allergy, Intermediate, Rash, 01/23/13) ROS Limited/Unobtainable: No Constitutional: Reports: no symptoms HEENT: Reports: no symptoms Cardiovascular: Reports: no symptoms Respiratory: Reports: no symptoms Gastrointestinal/Abdominal: Reports: no symptoms Genitourinary: Reports: no symptoms Neurologic/Psychiatric: Reports: no symptoms Subjective 62 YO M admitted with hyperglycemia. Cover for Int Med-Dr Rosado.. Fingerstick glucose more stable: 170-298. Objective Last Vital Signs Date Time Temp Pulse Resp B/P (MAP) Pulse Ox O2 Delivery O2 Flow Rate FiO2 08/11/17 09:05 67 111/65 08/11/17 08:37 98.1 19 100 08/11/17 07:46 Room Air 21 Laboratory Tests Test 08/11/17 04:40 White Blood Count 6.8 K/UL (4.8-10.8) Red Blood Count 2.62 M/UL (4.70-6.10) L Hemoglobin 8.3 G/DL (14.2-18.0) L Hematocrit 26.3 % (42.0-52.0) L Mean Corpuscular Volume 100 FL (80-99) H Mean Corpuscular Hemoglobin 31.5 PG (27.0-31.0) H Mean Corpuscular Hemoglobin Concent 31.4 G/DL (32.0-36.0) L Red Cell Distribution Width 15.0 % (11.6-14.8) H Platelet Count 194 K/UL (150-450) Mean Platelet Volume 6.9 FL (6.5-10.1) Neutrophils (%) (Auto) 69.9 % (45.0-75.0) Lymphocytes (%) (Auto) 17.3 % (20.0-45.0) L Monocytes (%) (Auto) 7.4 % (1.0-10.0) Eosinophils (%) (Auto) 4.6 % (0.0-3.0) H Basophils (%) (Auto) 0.8 % (0.0-2.0) Sodium Level 139 MMOL/L (136-145) Potassium Level 5.5 MMOL/L (3.5-5.1) H Chloride Level 113 MMOL/L (98-107) H Carbon Dioxide Level 14 MMOL/L (21-32) L Anion Gap 12 mmol/L (5-15) Blood Urea Nitrogen 64 mg/dL (7-18) H Creatinine 4.6 MG/DL (0.55-1.30) H Estimat Glomerular Filtration Rate 13.0 mL/min (>60) Glucose Level 294 MG/DL (74-106) H Uric Acid 5.6 MG/DL (2.6-7.2) Calcium Level 8.0 MG/DL (8.5-10.1) L Phosphorus Level 4.1 MG/DL (2.5-4.9) Magnesium Level 1.8 MG/DL (1.8-2.4) Total Bilirubin 0.4 MG/DL (0.2-1.0) Aspartate Amino Transf (AST/SGOT) 21 U/L (15-37) Alanine Aminotransferase (ALT/SGPT) 16 U/L (12-78) Alkaline Phosphatase 75 U/L (46-116) Total Protein 5.4 G/DL (6.4-8.2) L Albumin 2.3 G/DL (3.4-5.0) L Globulin 3.1 g/dL Albumin/Globulin Ratio 0.7 (1.0-2.7) L Microbiology Date/Time Source Procedure Growth Status 08/09/17 21:30 Blood Blood Culture - Preliminary Resulted 08/09/17 21:20 Blood Blood Culture - Preliminary NO GROWTH AFTER 24 HOURS Resulted 08/08/17 16:38 Blood Blood Culture - Preliminary NO GROWTH AFTER 48 HOURS Resulted 08/08/17 14:30 Blood Blood Culture - Final Staphylococcus Epidermidis Complete Intake and Output 08/10/17 08/11/17 19:00 07:00 Intake Total 1570 ml 500 ml Output Total 900 ml 1100 ml Balance 670 ml -600 ml Intake Oral 1520 ml IV Total 50 ml 500 ml Output Urine Total 900 ml 1100 ml # Voids 7 Objective General Appearance: WD/WN, no apparent distress, alert Neck: non-tender, normal alignment, supple Cardiovascular: normal peripheral pulses, normal rate, regular rhythm, no gallop/murmur, no JVD Respiratory/Chest: chest wall non-tender, lungs clear, normal breath sounds, no respiratory distress, no accessory muscle use Extremities: normal range of motion, non-tender Neurologic: no motor/sensory deficits Skin: normal pigmentation, warm/dry Assessment/Plan Problem List: (1) Acute hyperglycemia Assessment & Plan: ? secondaary to infection? See ID and endocrinology note. (2) Uncontrolled diabetes mellitus Assessment & Plan: Continue levemir and novolog sliding scale per endocrinology (3) Anemia (4) CKD (chronic kidney disease), stage III Assessment & Plan: See nephrology note. (5) Hyperglycemia due to type 2 diabetes mellitus (6) CAD (coronary artery disease) (7) HTN (hypertension) Assessment & Plan: Cont lopressor and norvasc. (8) Acute hyperglycemia (9) Gastritis (10) BPH (benign prostatic hyperplasia) (11) Hypercholesteremia (12) Sepsis Assessment & Plan: Staph epidermidis. See ID note. Replace PICC. Continue daptomycin per ID Status: not improved DEE MAHER Aug 11, 2017 10:45
--- NOTE | 2017-08-11 11:17 | Infectious Diseases Prog Note ---
Assessment/Plan Assessment/Plan ASSESSMENT: The patient is a 62-year-old male with: Staph Epi bacteremia- 2ry to infected PICC line- r/o endocarditis -s/p PICC removal 08/09 -08/06 Bcx 10/13 Staph epi/MRSE (labeld peripheral), Bcx 08/07 NTD, 08/08 (line) 2/ 2 MRSE; 08/09 1/ GPC clusters (however line was still in place) -TTE: Thickened mitral valve leaflets with normal excursion. Mild mitral annulus and aortic root calcification. Pulmonic valve is well visualized. Normal tricuspid valve structure. No echodensity is seen on valves (vegetation) , consider AMY if clinically indicated. Low-grade fever/leukocytosis- resolved -u/a no pyuria, ucx 10-20k mixed gram positive -CXR no acute disease Uncontrolled diabetes, probably due to sepsis. 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 -History of renal and pancreas transplant about 10 years ago. 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 -07/15 E fecalis (Amp R, Vanco S) - History of suicidal attempts in the past. -. History of myocardial infarction. -. History of anemia. -. History of colon polyps. PLAN: -Continue daptomycin #5 for S. epi bacteremia; duration to follow pending repeat Bcx- if remains negative, will treat for 1-2 weeks from 1st neg Bcx -if repeat Bcx (once line removed) are still positive, will need 4-6 weeks of abx and AMY. -08/09 SP Aztreonam #3 -f/u repeat bcx - Monitor CBC/BMP, temperatuers -aspiration precautions Thank you, Dr. Delgado, for allowing me to participate in the care of this patient. I will follow the patient with you during this hospitalization. Discussed with Dr Glasgow. Subjective Allergies: Coded Allergies: CEFEPIME (Verified Allergy, Intermediate, Rash, 01/23/13) Subjective afebrile still bacteremic on latest Bcx but this was prior to PICC line removal 2d echo with no obvious vegetations no leukocytosis Objective Vital Signs Last 24 Hour Vital Signs Date Time Temp Pulse Resp B/P (MAP) Pulse Ox O2 Delivery O2 Flow Rate FiO2 08/11/17 09:05 67 111/65 08/11/17 09:05 67 111/65 08/11/17 08:37 98.1 67 19 111/65 100 08/11/17 07:46 70 18 Room Air 21 08/11/17 04:00 98.3 81 21 157/80 100 Room Air 21 08/11/17 00:00 97.9 66 20 132/72 98 08/10/17 22:08 83 146/77 08/10/17 20:22 83 18 Room Air 21 08/10/17 20:00 98.2 79 20 146/77 96 08/10/17 17:31 81 140/72 08/10/17 16:00 98.3 81 20 140/72 96 08/10/17 12:15 97.1 80 21 146/70 97 Room Air Height (Feet): 5 Height (Inches): 8.00 Weight (Pounds): 209 Objective HEENT: No pale conjunctivae. No icterus. CHEST: Clear. HEART: S1 and S2. ABDOMEN: Soft, obese, nontender. EXTREMITIES: picc line removed, no rash NEUROLOGIC: Awake and alert. SKIN: The patient has scattered scratch velasquez on the upper and lower extremities. Microbiology Date/Time Source Procedure Growth Status 08/09/17 21:30 Blood Blood Culture - Preliminary Resulted 08/09/17 21:20 Blood Blood Culture - Preliminary NO GROWTH AFTER 24 HOURS Resulted 08/08/17 16:38 Blood Blood Culture - Preliminary NO GROWTH AFTER 48 HOURS Resulted 08/08/17 14:30 Blood Blood Culture - Final Staphylococcus Epidermidis Complete Laboratory Tests Test 08/11/17 04:40 White Blood Count 6.8 K/UL (4.8-10.8) Red Blood Count 2.62 M/UL (4.70-6.10) L Hemoglobin 8.3 G/DL (14.2-18.0) L Hematocrit 26.3 % (42.0-52.0) L Mean Corpuscular Volume 100 FL (80-99) H Mean Corpuscular Hemoglobin 31.5 PG (27.0-31.0) H Mean Corpuscular Hemoglobin Concent 31.4 G/DL (32.0-36.0) L Red Cell Distribution Width 15.0 % (11.6-14.8) H Platelet Count 194 K/UL (150-450) Mean Platelet Volume 6.9 FL (6.5-10.1) Neutrophils (%) (Auto) 69.9 % (45.0-75.0) Lymphocytes (%) (Auto) 17.3 % (20.0-45.0) L Monocytes (%) (Auto) 7.4 % (1.0-10.0) Eosinophils (%) (Auto) 4.6 % (0.0-3.0) H Basophils (%) (Auto) 0.8 % (0.0-2.0) Sodium Level 139 MMOL/L (136-145) Potassium Level 5.5 MMOL/L (3.5-5.1) H Chloride Level 113 MMOL/L (98-107) H Carbon Dioxide Level 14 MMOL/L (21-32) L Anion Gap 12 mmol/L (5-15) Blood Urea Nitrogen 64 mg/dL (7-18) H Creatinine 4.6 MG/DL (0.55-1.30) H Estimat Glomerular Filtration Rate 13.0 mL/min (>60) Glucose Level 294 MG/DL (74-106) H Uric Acid 5.6 MG/DL (2.6-7.2) Calcium Level 8.0 MG/DL (8.5-10.1) L Phosphorus Level 4.1 MG/DL (2.5-4.9) Magnesium Level 1.8 MG/DL (1.8-2.4) Total Bilirubin 0.4 MG/DL (0.2-1.0) Aspartate Amino Transf (AST/SGOT) 21 U/L (15-37) Alanine Aminotransferase (ALT/SGPT) 16 U/L (12-78) Alkaline Phosphatase 75 U/L (46-116) Total Protein 5.4 G/DL (6.4-8.2) L Albumin 2.3 G/DL (3.4-5.0) L Globulin 3.1 g/dL Albumin/Globulin Ratio 0.7 (1.0-2.7) L Current Medications Medications (Trade) Dose Ordered Sig/Dunia Route PRN Reason Start Time Stop Time Status Last Admin Dose Admin Acetaminophen (Tylenol) 650 mg Q4H PRN ORAL fever 08/06/17 22:45 09/05/17 22:44 08/07/17 10:56 Albuterol/ Ipratropium (Albuterol/ Ipratropium) 3 ml Q4H PRN HHN Shortness of Breath 08/06/17 22:45 08/11/17 22:44 Amlodipine Besylate (Norvasc) 5 mg BID ORAL 08/09/17 18:00 09/06/17 08:59 08/11/17 09:05 Azathioprine (Imuran) 50 mg DAILY ORAL 08/07/17 09:00 09/06/17 08:59 08/11/17 09:05 Clonidine HCl (Catapres Tab) 0.1 mg Q4H PRN ORAL sbp more than 160 08/06/17 22:45 09/05/17 22:44 08/07/17 10:25 Daptomycin 500 mg/ Sodium Chloride 55 ml @ 110 mls/hr Q48H IV 08/07/17 14:00 08/14/17 13:59 08/09/17 13:57 Dextrose (Dextrose 50%) STAT PRN IV Hypoglycemia 08/08/17 09:00 09/07/17 08:59 08/10/17 18:27 Docusate Sodium (Colace) 100 mg TID ORAL 08/09/17 18:00 09/08/17 17:59 08/11/17 09:05 Duloxetine HCl (Cymbalta) 30 mg DAILY ORAL 08/07/17 09:00 09/06/17 08:59 08/11/17 09:11 Epoetin Jose (Procrit (for non ESRD use)) 10,000 units WED-WED-WED SUBQ 08/11/17 21:00 09/10/17 20:59 Finasteride (Proscar) 5 mg DAILY ORAL 08/07/17 09:00 09/06/17 08:59 08/11/17 09:05 Heparin Sodium (Porcine) (Heparin 5000 units/ml) 5,000 units EVERY 12 HOURS SUBQ 08/07/17 09:00 09/06/17 08:59 08/11/17 09:07 Insulin Aspart (NovoLOG) BEFORE MEALS AND HS SUBQ 08/10/17 21:00 09/09/17 20:59 08/11/17 06:13 Insulin Aspart (NovoLOG) 8 units NOVOTIAC SUBQ 08/08/17 09:00 09/07/17 08:59 08/11/17 06:12 Insulin Detemir (Levemir) 10 units BID SUBQ 08/09/17 21:00 09/08/17 20:59 08/11/17 09:16 Metoprolol Tartrate (Lopressor) 50 mg Q12HR ORAL 08/07/17 21:00 09/06/17 20:59 08/11/17 09:05 Morphine Sulfate (Morphine Sulfate) 2 mg Q4H PRN IVP severe pain 7-10 08/06/17 22:45 08/13/17 22:44 Nitroglycerin (Ntg) 0.4 mg Q5M X 3 DOSES PRN SL Prn Chest Pain 08/06/17 22:45 09/05/17 22:44 Ondansetron HCl (Zofran) 4 mg Q6H PRN IVP Nausea & Vomiting 08/06/17 22:45 09/05/17 22:44 Pantoprazole (Protonix) 40 mg DAILY ORAL 08/09/17 16:30 09/08/17 16:29 08/11/17 09:05 Polyethylene Glycol (Miralax) 17 gm HSPRN PRN ORAL Constipation 08/06/17 22:45 09/05/17 22:44 Sevelamer Carbonate (Renvela) 800 mg TID@0800,1200,1700 ORAL 08/07/17 08:00 09/06/17 07:59 08/11/17 09:06 Sodium Chloride 1,000 ml @ 50 mls/hr Q20H IVLG 08/09/17 16:00 09/08/17 15:59 08/10/17 22:19 Sodium Citrate (Bicitra) 30 ml EVERY 6 HOURS ORAL 08/10/17 12:00 09/09/17 11:59 08/11/17 06:10 Tamsulosin HCl (Flomax) 0.4 mg Q12HR ORAL 08/07/17 21:00 09/06/17 20:59 08/11/17 09:05 Temazepam (Restoril) 15 mg HSPRN PRN ORAL Insomnia 08/06/17 22:45 08/13/17 22:44 Monique Read M.D. Aug 11, 2017 11:17
[2017-08-11] MEDS ORDERED: Sodium Polystyrene Sulfonate 15gm Powder ORAL ONE (11:30)
[2017-08-11 12:07] VITALS: BP 159/81
--- NOTE | 2017-08-11 12:44 | Nephrology Progress Note ---
Assessment/Plan Problem List: (1) CKD (chronic kidney disease), stage III (2) Uncontrolled diabetes mellitus (3) BPH (benign prostatic hyperplasia) (4) Anemia (5) Nephropathy, diabetic Assessment has CKD and was admitted for DM OOC BS is being managed by Endo Also has Bacteremia due to Picc line insertion at [facility] (1) CKD (chronic kidney disease), stage III, superimposed acute- Cr unchanged since last admit (2) Dehydration- Partly due to hyperglycemia (3) Hyperglycemia due to type 2 diabetes mellitus (4) BPH (benign prostatic hypertrophy) (5) Nephropathy, diabetic (6) History of simultaneous kidney and pancreas transplant (7) UTI (urinary tract infection) (8) Anemia of CKD Plan Plan: check for retention via JOHNNY was negative for retention Slow Hydrate- BP and BS control- Flomax PO- monitor renal parameters Anemia [place] EPO SQ Kayexelate and Bicitra Antibiotics for bacterimia previous workup: 2D Echo: Left ventricular ejection fraction estimated to be 55 %. No evidence of left ventricular hypertrophy. Subjective ROS Limited/Unobtainable: No Constitutional: Reports: malaise Objective Objective Last 24 Hour Vital Signs Date Time Temp Pulse Resp B/P (MAP) Pulse Ox O2 Delivery O2 Flow Rate FiO2 08/11/17 12:07 97.9 75 19 159/81 99 08/11/17 09:05 67 111/65 08/11/17 09:05 67 111/65 08/11/17 08:37 98.1 67 19 111/65 100 08/11/17 07:46 70 18 Room Air 21 08/11/17 04:00 98.3 81 21 157/80 100 Room Air 21 08/11/17 00:00 97.9 66 20 132/72 98 08/10/17 22:08 83 146/77 08/10/17 20:22 83 18 Room Air 21 08/10/17 20:00 98.2 79 20 146/77 96 08/10/17 17:31 81 140/72 08/10/17 16:00 98.3 81 20 140/72 96 Intake and Output 08/10/17 08/11/17 19:00 07:00 Intake Total 1570 ml 500 ml Output Total 900 ml 1100 ml Balance 670 ml -600 ml Intake Oral 1520 ml IV Total 50 ml 500 ml Output Urine Total 900 ml 1100 ml # Voids 7 Laboratory Tests 08/11/17 04:40: White Blood Count 6.8, Red Blood Count 2.62L, Hemoglobin 8.3L, Hematocrit 26.3L , Mean Corpuscular Volume 100H, Mean Corpuscular Hemoglobin 31.5H, Mean Corpuscular Hemoglobin Concent 31.4L, Red Cell Distribution Width 15.0H, Platelet Count 194, Mean Platelet Volume 6.9, Neutrophils (%) (Auto) 69.9, Lymphocytes (%) (Auto) 17.3L, Monocytes (%) (Auto) 7.4, Eosinophils (%) (Auto) 4.6H, Basophils (%) (Auto) 0.8, Sodium Level 139, Potassium Level 5.5H, Chloride Level 113H, Carbon Dioxide Level 14L, Anion Gap 12, Blood Urea Nitrogen 64H, Creatinine 4.6H, Estimat Glomerular Filtration Rate 13.0, Glucose Level 294H, Uric Acid 5.6, Calcium Level 8.0L, Phosphorus Level 4.1, Magnesium Level 1.8, Total Bilirubin 0.4, Aspartate Amino Transf (AST/SGOT) 21, Alanine Aminotransferase (ALT/SGPT) 16, Alkaline Phosphatase 75, Total Protein 5.4L, Albumin 2.3L, Globulin 3.1, Albumin/Globulin Ratio 0.7L Height (Feet): 5 Height (Inches): 8.00 Weight (Pounds): 209 General Appearance: no apparent distress Cardiovascular: normal rate Respiratory/Chest: decreased breath sounds Abdomen: soft Objective no change BERT ALONSO Aug 11, 2017 12:44
[2017-08-11] MEDS: DAPTOmycin 500 MG in NS 55 ML IV SCH (15:35)
[2017-08-11 15:54] VITALS: BP 150/75
--- NOTE | 2017-08-11 17:30 | Pulmonology Progress Note ---
Assessment/Plan Problems: (1) Bacteremia (2) Uncontrolled diabetes mellitus (3) Anemia in chronic kidney disease (4) Psychiatric disturbance (5) Anemia (6) Renal transplant recipient Assessment/Plan check electrolytes all reviewed sliding scale iv fluids psych f/u diabetic diet f/u blood culture sensitivities f/u ID recommendations continue abx d/C hd access and BC are persistently positive Subjective ROS Limited/Unobtainable: No Constitutional: Reports: no symptoms HEENT: Repors: no symptoms Allergies: Coded Allergies: CEFEPIME (Verified Allergy, Intermediate, Rash, 01/23/13) Objective Last 24 Hour Vital Signs Date Time Temp Pulse Resp B/P (MAP) Pulse Ox O2 Delivery O2 Flow Rate FiO2 08/11/17 17:19 67 150/75 08/11/17 15:54 97.7 67 19 150/75 97 08/11/17 12:07 97.9 75 19 159/81 99 08/11/17 09:05 67 111/65 08/11/17 09:05 67 111/65 08/11/17 08:37 98.1 67 19 111/65 100 08/11/17 07:46 70 18 Room Air 21 08/11/17 04:00 98.3 81 21 157/80 100 Room Air 21 08/11/17 00:00 97.9 66 20 132/72 98 08/10/17 22:08 83 146/77 08/10/17 20:22 83 18 Room Air 21 08/10/17 20:00 98.2 79 20 146/77 96 08/10/17 17:31 81 140/72 Intake and Output 08/10/17 08/11/17 19:00 07:00 Intake Total 1570 ml 550 ml Output Total 900 ml 1100 ml Balance 670 ml -550 ml Intake Oral 1520 ml IV Total 50 ml 550 ml Output Urine Total 900 ml 1100 ml # Voids 7 Objective General Appearance: WN Lines, tubes and drains: peripheral HEENT: normocephalic, atraumatic Neck: non-tender, normal alignment Respiratory/Chest: chest wall non-tender, lungs clear Cardiovascular/Chest: normal peripheral pulses, normal rate Abdomen: normal bowel sounds, non tender Genitourinary/Rectal: normal genital exam, normal rectal exam Skin Exam: normal pigmentation Microbiology Date/Time Source Procedure Growth Status 08/09/17 21:30 Blood Blood Culture - Preliminary Resulted 08/09/17 21:20 Blood Blood Culture - Preliminary NO GROWTH AFTER 24 HOURS Resulted 08/10/17 00:10 Arm Left Catheter Tip Culture - Preliminary NO GROWTH AFTER 24 HOURS Resulted Laboratory Tests 08/11/17 04:40: White Blood Count 6.8, Red Blood Count 2.62L, Hemoglobin 8.3L, Hematocrit 26.3L , Mean Corpuscular Volume 100H, Mean Corpuscular Hemoglobin 31.5H, Mean Corpuscular Hemoglobin Concent 31.4L, Red Cell Distribution Width 15.0H, Platelet Count 194, Mean Platelet Volume 6.9, Neutrophils (%) (Auto) 69.9, Lymphocytes (%) (Auto) 17.3L, Monocytes (%) (Auto) 7.4, Eosinophils (%) (Auto) 4.6H, Basophils (%) (Auto) 0.8, Sodium Level 139, Potassium Level 5.5H, Chloride Level 113H, Carbon Dioxide Level 14L, Anion Gap 12, Blood Urea Nitrogen 64H, Creatinine 4.6H, Estimat Glomerular Filtration Rate 13.0, Glucose Level 294H, Uric Acid 5.6, Calcium Level 8.0L, Phosphorus Level 4.1, Magnesium Level 1.8, Total Bilirubin 0.4, Aspartate Amino Transf (AST/SGOT) 21, Alanine Aminotransferase (ALT/SGPT) 16, Alkaline Phosphatase 75, Total Protein 5.4L, Albumin 2.3L, Globulin 3.1, Albumin/Globulin Ratio 0.7L Current Medications Medications (Trade) Dose Ordered Sig/Dunia Route PRN Reason Start Time Stop Time Status Last Admin Dose Admin Acetaminophen (Tylenol) 650 mg Q4H PRN ORAL fever 08/06/17 22:45 09/05/17 22:44 08/07/17 10:56 Albuterol/ Ipratropium (Albuterol/ Ipratropium) 3 ml Q4H PRN HHN Shortness of Breath 08/06/17 22:45 08/11/17 22:44 Amlodipine Besylate (Norvasc) 5 mg BID ORAL 08/09/17 18:00 09/06/17 08:59 08/11/17 17:19 Azathioprine (Imuran) 50 mg DAILY ORAL 08/07/17 09:00 09/06/17 08:59 08/11/17 09:05 Clonidine HCl (Catapres Tab) 0.1 mg Q4H PRN ORAL sbp more than 160 08/06/17 22:45 09/05/17 22:44 08/07/17 10:25 Daptomycin 500 mg/ Sodium Chloride 55 ml @ 110 mls/hr Q48H IV 08/07/17 14:00 08/14/17 13:59 08/11/17 15:35 Dextrose (Dextrose 50%) STAT PRN IV Hypoglycemia 08/08/17 09:00 09/07/17 08:59 08/10/17 18:27 Docusate Sodium (Colace) 100 mg TID ORAL 08/09/17 18:00 09/08/17 17:59 08/11/17 17:18 Duloxetine HCl (Cymbalta) 30 mg DAILY ORAL 08/07/17 09:00 09/06/17 08:59 08/11/17 09:11 Epoetin Jose (Procrit (for non ESRD use)) 10,000 units WED-WED-WED SUBQ 08/11/17 21:00 09/10/17 20:59 Finasteride (Proscar) 5 mg DAILY ORAL 08/07/17 09:00 09/06/17 08:59 08/11/17 09:05 Heparin Sodium (Porcine) (Heparin 5000 units/ml) 5,000 units EVERY 12 HOURS SUBQ 08/07/17 09:00 09/06/17 08:59 08/11/17 09:07 Insulin Aspart (NovoLOG) BEFORE MEALS AND HS SUBQ 08/10/17 21:00 09/09/17 20:59 08/11/17 12:50 Insulin Aspart (NovoLOG) 8 units NOVOTIAC SUBQ 08/08/17 09:00 09/07/17 08:59 08/11/17 11:50 Insulin Detemir (Levemir) 10 units BID SUBQ 08/09/17 21:00 09/08/17 20:59 08/11/17 09:16 Metoprolol Tartrate (Lopressor) 50 mg Q12HR ORAL 08/07/17 21:00 09/06/17 20:59 08/11/17 09:05 Morphine Sulfate (Morphine Sulfate) 2 mg Q4H PRN IVP severe pain 7-10 08/06/17 22:45 08/13/17 22:44 Nitroglycerin (Ntg) 0.4 mg Q5M X 3 DOSES PRN SL Prn Chest Pain 08/06/17 22:45 09/05/17 22:44 Ondansetron HCl (Zofran) 4 mg Q6H PRN IVP Nausea & Vomiting 08/06/17 22:45 09/05/17 22:44 Pantoprazole (Protonix) 40 mg DAILY ORAL 08/09/17 16:30 09/08/17 16:29 08/11/17 09:05 Polyethylene Glycol (Miralax) 17 gm HSPRN PRN ORAL Constipation 08/06/17 22:45 09/05/17 22:44 Sevelamer Carbonate (Renvela) 800 mg TID@0800,1200,1700 ORAL 08/07/17 08:00 09/06/17 07:59 08/11/17 17:18 Sodium Chloride 1,000 ml @ 50 mls/hr Q20H IVLG 08/09/17 16:00 09/08/17 15:59 08/11/17 15:35 Sodium Citrate (Bicitra) 30 ml EVERY 6 HOURS ORAL 08/10/17 12:00 09/09/17 11:59 08/11/17 17:19 Tamsulosin HCl (Flomax) 0.4 mg Q12HR ORAL 08/07/17 21:00 09/06/17 20:59 08/11/17 09:05 Temazepam (Restoril) 15 mg HSPRN PRN ORAL Insomnia 08/06/17 22:45 08/13/17 22:44 MARGO GALLEGOS Aug 11, 2017 17:30
--- NOTE | 2017-08-11 18:22 | General Progress Note ---
Assessment/Plan Problem List: (1) ESRD (end stage renal disease) ICD Codes: N18.6 - End stage renal disease SNOMED: 40971593 (2) History of simultaneous kidney and pancreas transplant ICD Codes: Z94.0 - History of simultaneous kidney and pancreas transplant; Z94.83 - Pancreas transplant status SNOMED: 475269403 (3) Uncontrolled diabetes mellitus ICD Codes: E11.65 - Type 2 diabetes mellitus with hyperglycemia SNOMED: 683323502 Assessment/Plan continue Levemir 10 units bid - do not hold reduce Novolog to 5 units ac tid reduce NISS to sensitive scale discussed with RN Subjective Allergies: Coded Allergies: CEFEPIME (Verified Allergy, Intermediate, Rash, 01/23/13) All Systems: reviewed and negative except above Subjective events noted Objective Last 24 Hour Vital Signs Date Time Temp Pulse Resp B/P (MAP) Pulse Ox O2 Delivery O2 Flow Rate FiO2 08/11/17 17:19 67 150/75 08/11/17 15:54 97.7 67 19 150/75 97 08/11/17 12:07 97.9 75 19 159/81 99 08/11/17 09:05 67 111/65 08/11/17 09:05 67 111/65 08/11/17 08:37 98.1 67 19 111/65 100 08/11/17 07:46 70 18 Room Air 21 08/11/17 04:00 98.3 81 21 157/80 100 Room Air 21 08/11/17 00:00 97.9 66 20 132/72 98 08/10/17 22:08 83 146/77 08/10/17 20:22 83 18 Room Air 21 08/10/17 20:00 98.2 79 20 146/77 96 Intake and Output 08/10/17 08/11/17 19:00 07:00 Intake Total 1570 ml 550 ml Output Total 900 ml 1100 ml Balance 670 ml -550 ml Intake Oral 1520 ml IV Total 50 ml 550 ml Output Urine Total 900 ml 1100 ml # Voids 7 Laboratory Tests 08/11/17 04:40: White Blood Count 6.8, Red Blood Count 2.62L, Hemoglobin 8.3L, Hematocrit 26.3L , Mean Corpuscular Volume 100H, Mean Corpuscular Hemoglobin 31.5H, Mean Corpuscular Hemoglobin Concent 31.4L, Red Cell Distribution Width 15.0H, Platelet Count 194, Mean Platelet Volume 6.9, Neutrophils (%) (Auto) 69.9, Lymphocytes (%) (Auto) 17.3L, Monocytes (%) (Auto) 7.4, Eosinophils (%) (Auto) 4.6H, Basophils (%) (Auto) 0.8, Sodium Level 139, Potassium Level 5.5H, Chloride Level 113H, Carbon Dioxide Level 14L, Anion Gap 12, Blood Urea Nitrogen 64H, Creatinine 4.6H, Estimat Glomerular Filtration Rate 13.0, Glucose Level 294H, Uric Acid 5.6, Calcium Level 8.0L, Phosphorus Level 4.1, Magnesium Level 1.8, Total Bilirubin 0.4, Aspartate Amino Transf (AST/SGOT) 21, Alanine Aminotransferase (ALT/SGPT) 16, Alkaline Phosphatase 75, Total Protein 5.4L, Albumin 2.3L, Globulin 3.1, Albumin/Globulin Ratio 0.7L Height (Feet): 5 Height (Inches): 8.00 Weight (Pounds): 209 General Appearance: no apparent distress Neck: normal alignment Cardiovascular: normal rate Respiratory/Chest: lungs clear Abdomen: normal bowel sounds Pelvis: normal external exam Objective Current Medications Medications (Trade) Dose Ordered Sig/Dunia Route PRN Reason Start Time Stop Time Status Last Admin Dose Admin Acetaminophen (Tylenol) 650 mg Q4H PRN ORAL fever 08/06/17 22:45 09/05/17 22:44 08/07/17 10:56 Albuterol/ Ipratropium (Albuterol/ Ipratropium) 3 ml Q4H PRN HHN Shortness of Breath 08/06/17 22:45 08/11/17 22:44 Amlodipine Besylate (Norvasc) 5 mg BID ORAL 08/09/17 18:00 09/06/17 08:59 08/11/17 17:19 Azathioprine (Imuran) 50 mg DAILY ORAL 08/07/17 09:00 09/06/17 08:59 08/11/17 09:05 Clonidine HCl (Catapres Tab) 0.1 mg Q4H PRN ORAL sbp more than 160 08/06/17 22:45 09/05/17 22:44 08/07/17 10:25 Daptomycin 500 mg/ Sodium Chloride 55 ml @ 110 mls/hr Q48H IV 08/07/17 14:00 08/14/17 13:59 08/11/17 15:35 Dextrose (Dextrose 50%) STAT PRN IV Hypoglycemia 08/08/17 09:00 09/07/17 08:59 08/10/17 18:27 Docusate Sodium (Colace) 100 mg TID ORAL 08/09/17 18:00 09/08/17 17:59 08/11/17 17:18 Duloxetine HCl (Cymbalta) 30 mg DAILY ORAL 08/07/17 09:00 09/06/17 08:59 08/11/17 09:11 Epoetin Jose (Procrit (for non ESRD use)) 10,000 units WED-WED-WED SUBQ 08/11/17 21:00 09/10/17 20:59 Finasteride (Proscar) 5 mg DAILY ORAL 08/07/17 09:00 09/06/17 08:59 08/11/17 09:05 Heparin Sodium (Porcine) (Heparin 5000 units/ml) 5,000 units EVERY 12 HOURS SUBQ 08/07/17 09:00 09/06/17 08:59 08/11/17 09:07 Insulin Aspart (NovoLOG) BEFORE MEALS AND HS SUBQ 08/10/17 21:00 09/09/17 20:59 08/11/17 12:50 Insulin Aspart (NovoLOG) 8 units NOVOTIAC SUBQ 08/08/17 09:00 09/07/17 08:59 08/11/17 11:50 Insulin Detemir (Levemir) 10 units BID SUBQ 08/09/17 21:00 09/08/17 20:59 08/11/17 09:16 Metoprolol Tartrate (Lopressor) 50 mg Q12HR ORAL 08/07/17 21:00 09/06/17 20:59 08/11/17 09:05 Morphine Sulfate (Morphine Sulfate) 2 mg Q4H PRN IVP severe pain 7-10 08/06/17 22:45 08/13/17 22:44 Nitroglycerin (Ntg) 0.4 mg Q5M X 3 DOSES PRN SL Prn Chest Pain 08/06/17 22:45 09/05/17 22:44 Ondansetron HCl (Zofran) 4 mg Q6H PRN IVP Nausea & Vomiting 08/06/17 22:45 09/05/17 22:44 Pantoprazole (Protonix) 40 mg DAILY ORAL 08/09/17 16:30 09/08/17 16:29 08/11/17 09:05 Polyethylene Glycol (Miralax) 17 gm HSPRN PRN ORAL Constipation 08/06/17 22:45 09/05/17 22:44 Sevelamer Carbonate (Renvela) 800 mg TID@0800,1200,1700 ORAL 08/07/17 08:00 09/06/17 07:59 08/11/17 17:18 Sodium Chloride 1,000 ml @ 50 mls/hr Q20H IVLG 08/09/17 16:00 09/08/17 15:59 08/11/17 15:35 Sodium Citrate (Bicitra) 30 ml EVERY 6 HOURS ORAL 08/10/17 12:00 09/09/17 11:59 08/11/17 17:19 Tamsulosin HCl (Flomax) 0.4 mg Q12HR ORAL 08/07/17 21:00 09/06/17 20:59 08/11/17 09:05 Temazepam (Restoril) 15 mg HSPRN PRN ORAL Insomnia 08/06/17 22:45 08/13/17 22:44 Item Value Date Time Bedside Blood Glucose 57 mg/dl L 08/11/17 1719 Bedside Blood Glucose 197 mg/dl H 08/11/17 1250 Bedside Blood Glucose 170 mg/dl H 08/11/17 0916 Bedside Blood Glucose 298 mg/dl H 08/11/17 0630 Bedside Blood Glucose 106 mg/dl 08/10/17 2100 Bedside Blood Glucose 153 mg/dl H 08/10/17 1850 Bedside Blood Glucose 281 mg/dl H 08/10/17 1246 MALKA SHERIFF Aug 11, 2017 18:22
[2017-08-11 20:00] VITALS: BP 122/69
[2017-08-11] MEDS: Epogen (for non ESRD use) SUBQ SCH (21:32)
[2017-08-12] VITALS: BP 149/72
[2017-08-12 04:00] VITALS: BP 145/66
[2017-08-12] MEDS: Sodium Citrate 30ml ORAL SCH ×3 (06:27→18:06)
[2017-08-12] MEDS: NovoLOG Insulin Flexpen SUBQ SCH ×7 (06:28→21:00)
[2017-08-12 08:00] VITALS: BP 161/86
[2017-08-12] MEDS: Heparin 5000 units/ml inj SUBQ SCH ×2 (08:45→21:37)
[2017-08-12] MEDS: Levemir Flexpen SUBQ SCH ×2 (08:45→18:01)
[2017-08-12] MEDS: azaTHIOprine 50 MG TAB ORAL SCH (08:46)
[2017-08-12] MEDS: Renvela 800mg Pkt ORAL SCH ×3 (08:46→18:06)
[2017-08-12] MEDS: Metoprolol Tartrate 50mg tab ORAL SCH ×2 (08:47→21:25)
[2017-08-12] MEDS: Tamsulosin 0.4mg cap ORAL SCH ×2 (08:47→21:25)
[2017-08-12] MEDS: DULoxetine 30mg cap ORAL SCH (08:47)
[2017-08-12] MEDS: Docusate 100mg cap ORAL SCH ×3 (08:48→18:06)
[2017-08-12 10:48] LABS: BASOPHILS % (AUTO) 0.7 % (0.0-2.0); HEMATOCRIT 29.6 % (42.0-52.0); HEMOGLOBIN 9.6 G/DL (14.2-18.0); LYMPHOCYTES % (AUTO) 20.3 % (20.0-45.0); MEAN CORPUSCULAR VOLUME 101 FL (80-99); MONOCYTES % (AUTO) 8.5 % (1.0-10.0); NEUTROPHILS % (AUTO) 65.6 % (45.0-75.0); PLATELET COUNT 185 K/UL (150-450); RED BLOOD COUNT 2.93 M/UL (4.70-6.10); WHITE BLOOD COUNT 6.9 K/UL (4.8-10.8)
[2017-08-12 10:53] LABS: ANION GAP 14 mmol/L (5-15); BLOOD UREA NITROGEN 56 mg/dL (7-18); CALCIUM 8.5 MG/DL (8.5-10.1); CARBON DIOXIDE 18 MMOL/L (21-32); CHLORIDE 113 MMOL/L (98-107); CREATININE 4.2 MG/DL (0.55-1.30); POTASSIUM 4.6 MMOL/L (3.5-5.1); SODIUM 144 MMOL/L (136-145)
--- NOTE | 2017-08-12 11:44 | Infectious Diseases Prog Note ---
Assessment/Plan Assessment/Plan ASSESSMENT: The patient is a 62-year-old male with: Staph Epi bacteremia- 2ry to infected PICC line- r/o endocarditis -s/p PICC removal 08/09 -08/06 Bcx 10/13 Staph epi/MRSE (labeld peripheral), Bcx 08/07 NTD, 08/08 (line) 2/ 2 MRSE; 08/09 1/ GPC clusters (however line was still in place); Bcx 08/11 p -TTE: Thickened mitral valve leaflets with normal excursion. Mild mitral annulus and aortic root calcification. Pulmonic valve is well visualized. Normal tricuspid valve structure. No echodensity is seen on valves (vegetation) , consider AMY if clinically indicated. Low-grade fever/leukocytosis- resolved -u/a no pyuria, ucx 10-20k mixed gram positive -CXR no acute disease Uncontrolled diabetes, probably due to sepsis. 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 -History of renal and pancreas transplant about 10 years ago. 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 -07/15 E fecalis (Amp R, Vanco S) - History of suicidal attempts in the past. -. History of myocardial infarction. -. History of anemia. -. History of colon polyps. PLAN: -Continue daptomycin #6 for S. epi bacteremia; duration to follow pending repeat Bcx- if remains negative, will treat for 1-2 weeks from 1st neg Bcx -if repeat Bcx (once line removed) are still positive, will need 4-6 weeks of abx and AMY. -08/09 SP Aztreonam #3 -f/u repeat bcx - Monitor CBC/BMP, temperatuers -aspiration precautions Thank you, Dr. Delgado, for allowing me to participate in the care of this patient. I will follow the patient with you during this hospitalization. Subjective Allergies: Coded Allergies: CEFEPIME (Verified Allergy, Intermediate, Rash, 01/23/13) Subjective afebrile repeat bcx (after removal of line) pending no leukocytosis Objective Vital Signs Last 24 Hour Vital Signs Date Time Temp Pulse Resp B/P (MAP) Pulse Ox O2 Delivery O2 Flow Rate FiO2 2/1/18 08:48 76 161/86 2/1/18 08:47 76 161/86 08/12/17 08:00 98.2 76 20 161/86 100 08/12/17 07:35 71 18 Room Air 21 08/12/17 04:00 98.1 66 20 145/66 99 Room Air 08/12/17 00:00 98.3 69 20 149/72 98 Room Air 08/11/17 21:08 76 122/69 08/11/17 20:00 97.4 76 20 122/69 98 Room Air 08/11/17 19:24 73 18 Room Air 21 08/11/17 17:19 67 150/75 08/11/17 15:54 97.7 67 19 150/75 97 08/11/17 12:07 97.9 75 19 159/81 99 Height (Feet): 5 Height (Inches): 8.00 Weight (Pounds): 209 Objective HEENT: No pale conjunctivae. No icterus. CHEST: Clear. HEART: S1 and S2. ABDOMEN: Soft, obese, nontender. EXTREMITIES: picc line removed, no rash NEUROLOGIC: Awake and alert. SKIN: The patient has scattered scratch velasquez on the upper and lower extremities. Microbiology Date/Time Source Procedure Growth Status 08/09/17 21:30 Blood Blood Culture - Preliminary Gram Positive Cocci Resulted 08/09/17 21:20 Blood Blood Culture - Preliminary NO GROWTH AFTER 48 HOURS Resulted 08/10/17 00:10 Arm Left Catheter Tip Culture - Preliminary NO GROWTH AFTER 24 HOURS Resulted Laboratory Tests Test 08/12/17 09:10 White Blood Count 6.9 K/UL (4.8-10.8) Red Blood Count 2.93 M/UL (4.70-6.10) L Hemoglobin 9.6 G/DL (14.2-18.0) L Hematocrit 29.6 % (42.0-52.0) L Mean Corpuscular Volume 101 FL (80-99) H Mean Corpuscular Hemoglobin 32.9 PG (27.0-31.0) H Mean Corpuscular Hemoglobin Concent 32.6 G/DL (32.0-36.0) Red Cell Distribution Width 15.0 % (11.6-14.8) H Platelet Count 185 K/UL (150-450) Mean Platelet Volume 7.1 FL (6.5-10.1) Neutrophils (%) (Auto) 65.6 % (45.0-75.0) Lymphocytes (%) (Auto) 20.3 % (20.0-45.0) Monocytes (%) (Auto) 8.5 % (1.0-10.0) Eosinophils (%) (Auto) 5.0 % (0.0-3.0) H Basophils (%) (Auto) 0.7 % (0.0-2.0) Sodium Level 144 MMOL/L (136-145) Potassium Level 4.6 MMOL/L (3.5-5.1) Chloride Level 113 MMOL/L (98-107) H Carbon Dioxide Level 18 MMOL/L (21-32) L Anion Gap 14 mmol/L (5-15) Blood Urea Nitrogen 56 mg/dL (7-18) H Creatinine 4.2 MG/DL (0.55-1.30) H Estimat Glomerular Filtration Rate 14.4 mL/min (>60) Glucose Level 161 MG/DL (74-106) #H Calcium Level 8.5 MG/DL (8.5-10.1) Current Medications Medications (Trade) Dose Ordered Sig/Dunia Route PRN Reason Start Time Stop Time Status Last Admin Dose Admin Acetaminophen (Tylenol) 650 mg Q4H PRN ORAL fever 08/06/17 22:45 09/05/17 22:44 08/07/17 10:56 Amlodipine Besylate (Norvasc) 5 mg BID ORAL 08/09/17 18:00 09/06/17 08:59 08/12/17 08:48 Azathioprine (Imuran) 50 mg DAILY ORAL 08/07/17 09:00 09/06/17 08:59 08/12/17 08:46 Clonidine HCl (Catapres Tab) 0.1 mg Q4H PRN ORAL sbp more than 160 08/06/17 22:45 09/05/17 22:44 08/07/17 10:25 Daptomycin 500 mg/ Sodium Chloride 55 ml @ 110 mls/hr Q48H IV 08/07/17 14:00 08/14/17 13:59 08/11/17 15:35 Dextrose (Dextrose 50%) STAT PRN IV Hypoglycemia 08/08/17 09:00 09/07/17 08:59 08/10/17 18:27 Docusate Sodium (Colace) 100 mg TID ORAL 08/09/17 18:00 09/08/17 17:59 08/12/17 08:48 Duloxetine HCl (Cymbalta) 30 mg DAILY ORAL 08/07/17 09:00 09/06/17 08:59 08/12/17 08:47 Epoetin Jose (Procrit (for non ESRD use)) 10,000 units WED-WED-WED SUBQ 08/11/17 21:00 09/10/17 20:59 08/11/17 21:32 Finasteride (Proscar) 5 mg DAILY ORAL 08/07/17 09:00 09/06/17 08:59 08/12/17 08:48 Heparin Sodium (Porcine) (Heparin 5000 units/ml) 5,000 units EVERY 12 HOURS SUBQ 08/07/17 09:00 09/06/17 08:59 08/12/17 08:45 Insulin Aspart (NovoLOG) BEFORE MEALS AND HS SUBQ 08/10/17 21:00 09/09/17 20:59 08/12/17 06:29 Insulin Aspart (NovoLOG) 5 units NOVOTIAC SUBQ 08/12/17 06:30 09/11/17 06:29 08/12/17 06:28 Insulin Detemir (Levemir) 10 units BID SUBQ 08/09/17 21:00 09/08/17 20:59 08/12/17 08:45 Metoprolol Tartrate (Lopressor) 50 mg Q12HR ORAL 08/07/17 21:00 09/06/17 20:59 08/12/17 08:47 Morphine Sulfate (Morphine Sulfate) 2 mg Q4H PRN IVP severe pain 7-10 08/06/17 22:45 08/13/17 22:44 Nitroglycerin (Ntg) 0.4 mg Q5M X 3 DOSES PRN SL Prn Chest Pain 08/06/17 22:45 09/05/17 22:44 Ondansetron HCl (Zofran) 4 mg Q6H PRN IVP Nausea & Vomiting 08/06/17 22:45 09/05/17 22:44 Pantoprazole (Protonix) 40 mg DAILY ORAL 08/09/17 16:30 09/08/17 16:29 08/12/17 08:47 Polyethylene Glycol (Miralax) 17 gm HSPRN PRN ORAL Constipation 08/06/17 22:45 09/05/17 22:44 Sevelamer Carbonate (Renvela) 800 mg TID@0800,1200,1700 ORAL 08/07/17 08:00 09/06/17 07:59 08/12/17 08:46 Sodium Chloride 1,000 ml @ 50 mls/hr Q20H IVLG 08/09/17 16:00 09/08/17 15:59 08/11/17 15:35 Sodium Citrate (Bicitra) 30 ml EVERY 6 HOURS ORAL 08/10/17 12:00 09/09/17 11:59 08/12/17 06:27 Tamsulosin HCl (Flomax) 0.4 mg Q12HR ORAL 08/07/17 21:00 09/06/17 20:59 08/12/17 08:47 Temazepam (Restoril) 15 mg HSPRN PRN ORAL Insomnia 08/06/17 22:45 08/13/17 22:44 Monique Read M.D. Aug 12, 2017 11:44
[2017-08-12 12:00] VITALS: BP 175/87
--- NOTE | 2017-08-12 13:34 | Nephrology Progress Note ---
Assessment/Plan Problem List: (1) CKD (chronic kidney disease), stage III (2) Uncontrolled diabetes mellitus (3) BPH (benign prostatic hyperplasia) (4) Anemia (5) Nephropathy, diabetic Assessment Cr low 4.2 has CKD and was admitted for DM OOC BS is being managed by Endo Also has Bacteremia due to Picc line insertion at [facility] (1) CKD (chronic kidney disease), stage III, superimposed acute- Cr unchanged since last admit (2) Dehydration- Partly due to hyperglycemia (3) Hyperglycemia due to type 2 diabetes mellitus (4) BPH (benign prostatic hypertrophy) (5) Nephropathy, diabetic (6) History of simultaneous kidney and pancreas transplant (7) UTI (urinary tract infection) (8) Anemia of CKD Plan Plan: check for retention via JOHNNY was negative for retention Slow Hydrate- BP and BS control- Flomax PO- monitor renal parameters Anemia [place] EPO SQ Kayexelate and Bicitra Antibiotics for bacterimia ? Dc planning previous workup: 2D Echo: Left ventricular ejection fraction estimated to be 55 %. No evidence of left ventricular hypertrophy. Subjective ROS Limited/Unobtainable: No Constitutional: Reports: malaise Objective Objective Last 24 Hour Vital Signs Date Time Temp Pulse Resp B/P (MAP) Pulse Ox O2 Delivery O2 Flow Rate FiO2 08/12/17 12:00 98.3 65 20 175/87 100 08/12/17 11:57 178/89 08/12/17 08:48 76 161/86 08/12/17 08:47 76 161/86 08/12/17 08:00 98.2 76 20 161/86 100 08/12/17 07:35 71 18 Room Air 08/12/17 04:00 98.1 66 20 145/66 99 Room Air 08/12/17 00:00 98.3 69 20 149/72 98 Room Air 08/11/17 21:08 76 122/69 08/11/17 20:00 97.4 76 20 122/69 98 Room Air 08/11/17 19:24 73 18 Room Air 21 08/11/17 17:19 67 150/75 08/11/17 15:54 97.7 67 19 150/75 97 Intake and Output 08/11/17 08/12/17 19:00 07:00 Intake Total 1170 ml 550 ml Output Total 1000 ml Balance 170 ml 550 ml Intake Oral 560 ml IV Total 610 ml 550 ml Output Urine Total 1000 ml # Voids 2 Laboratory Tests 08/12/17 09:10: White Blood Count 6.9, Red Blood Count 2.93L, Hemoglobin 9.6L, Hematocrit 29.6L , Mean Corpuscular Volume 101H, Mean Corpuscular Hemoglobin 32.9H, Mean Corpuscular Hemoglobin Concent 32.6, Red Cell Distribution Width 15.0H, Platelet Count 185, Mean Platelet Volume 7.1, Neutrophils (%) (Auto) 65.6, Lymphocytes (%) (Auto) 20.3, Monocytes (%) (Auto) 8.5, Eosinophils (%) (Auto) 5.0H, Basophils (%) (Auto) 0.7, Sodium Level 144, Potassium Level 4.6, Chloride Level 113H, Carbon Dioxide Level 18L, Anion Gap 14, Blood Urea Nitrogen 56H, Creatinine 4.2H, Estimat Glomerular Filtration Rate 14.4, Glucose Level 161#H, Calcium Level 8.5 Height (Feet): 5 Height (Inches): 8.00 Weight (Pounds): 209 General Appearance: no apparent distress Objective no change BERT ALONSO Aug 12, 2017 13:34
[2017-08-12 16:00] VITALS: BP 138/82
--- NOTE | 2017-08-12 16:31 | Internal Med Progress Note ---
Subjective Date of Service: Aug 12, 2017 Physician Name Glasgow,Dee Attending Physician Christopher Rosado MD Current Medications Medications (Trade) Dose Ordered Sig/Dunia Route PRN Reason Start Time Stop Time Status Last Admin Dose Admin Acetaminophen (Tylenol) 650 mg Q4H PRN ORAL fever 08/06/17 22:45 09/05/17 22:44 08/07/17 10:56 Amlodipine Besylate (Norvasc) 5 mg BID ORAL 08/09/17 18:00 09/06/17 08:59 08/12/17 08:48 Azathioprine (Imuran) 50 mg DAILY ORAL 08/07/17 09:00 09/06/17 08:59 08/12/17 08:46 Clonidine HCl (Catapres Tab) 0.1 mg Q4H PRN ORAL sbp more than 160 08/06/17 22:45 09/05/17 22:44 08/12/17 11:57 Daptomycin 500 mg/ Sodium Chloride 55 ml @ 110 mls/hr Q48H IV 08/07/17 14:00 08/14/17 13:59 08/11/17 15:35 Dextrose (Dextrose 50%) STAT PRN IV Hypoglycemia 08/08/17 09:00 09/07/17 08:59 08/10/17 18:27 Docusate Sodium (Colace) 100 mg TID ORAL 08/09/17 18:00 09/08/17 17:59 08/12/17 11:57 Duloxetine HCl (Cymbalta) 30 mg DAILY ORAL 08/07/17 09:00 09/06/17 08:59 08/12/17 08:47 Epoetin Jose (Procrit (for non ESRD use)) 10,000 units MON-WED-WED SUBQ 08/11/17 21:00 09/10/17 20:59 08/11/17 21:32 Finasteride (Proscar) 5 mg DAILY ORAL 08/07/17 09:00 09/06/17 08:59 08/12/17 08:48 Heparin Sodium (Porcine) (Heparin 5000 units/ml) 5,000 units EVERY 12 HOURS SUBQ 08/07/17 09:00 09/06/17 08:59 08/12/17 08:45 Insulin Aspart (NovoLOG) BEFORE MEALS AND HS SUBQ 08/10/17 21:00 09/09/17 20:59 08/12/17 11:51 Insulin Aspart (NovoLOG) 5 units NOVOTIAC SUBQ 08/12/17 06:30 09/11/17 06:29 08/12/17 11:51 Insulin Detemir (Levemir) 10 units BID SUBQ 08/09/17 21:00 09/08/17 20:59 08/12/17 08:45 Metoprolol Tartrate (Lopressor) 50 mg Q12HR ORAL 08/07/17 21:00 09/06/17 20:59 08/12/17 08:47 Morphine Sulfate (Morphine Sulfate) 2 mg Q4H PRN IVP severe pain 7-10 08/06/17 22:45 08/13/17 22:44 Nitroglycerin (Ntg) 0.4 mg Q5M X 3 DOSES PRN SL Prn Chest Pain 08/06/17 22:45 09/05/17 22:44 Ondansetron HCl (Zofran) 4 mg Q6H PRN IVP Nausea & Vomiting 08/06/17 22:45 09/05/17 22:44 Pantoprazole (Protonix) 40 mg DAILY ORAL 08/09/17 16:30 09/08/17 16:29 08/12/17 08:47 Polyethylene Glycol (Miralax) 17 gm HSPRN PRN ORAL Constipation 08/06/17 22:45 09/05/17 22:44 Sevelamer Carbonate (Renvela) 800 mg TID@0800,1200,1700 ORAL 08/07/17 08:00 09/06/17 07:59 08/12/17 11:57 Sodium Chloride 1,000 ml @ 50 mls/hr Q20H IVLG 08/09/17 16:00 09/08/17 15:59 08/11/17 15:35 Sodium Citrate (Bicitra) 30 ml EVERY 6 HOURS ORAL 08/10/17 12:00 09/09/17 11:59 08/12/17 11:57 Tamsulosin HCl (Flomax) 0.4 mg Q12HR ORAL 08/07/17 21:00 09/06/17 20:59 08/12/17 08:47 Temazepam (Restoril) 15 mg HSPRN PRN ORAL Insomnia 08/06/17 22:45 08/13/17 22:44 Allergies: Coded Allergies: CEFEPIME (Verified Allergy, Intermediate, Rash, 01/23/13) ROS Limited/Unobtainable: No Constitutional: Reports: no symptoms HEENT: Reports: no symptoms Cardiovascular: Reports: no symptoms Respiratory: Reports: no symptoms Gastrointestinal/Abdominal: Reports: no symptoms Genitourinary: Reports: no symptoms Neurologic/Psychiatric: Reports: no symptoms Subjective 62 YO M admitted with hyperglycemia. Now sepsis. Cover for Int Med-Dr Rosado.. Fingerstick glucose more stable: 146-243 Objective Last Vital Signs Date Time Temp Pulse Resp B/P (MAP) Pulse Ox O2 Delivery O2 Flow Rate FiO2 08/12/17 12:00 98.3 65 20 175/87 100 08/12/17 07:35 Room Air 21 Laboratory Tests Test 08/12/17 09:10 White Blood Count 6.9 K/UL (4.8-10.8) Red Blood Count 2.93 M/UL (4.70-6.10) L Hemoglobin 9.6 G/DL (14.2-18.0) L Hematocrit 29.6 % (42.0-52.0) L Mean Corpuscular Volume 101 FL (80-99) H Mean Corpuscular Hemoglobin 32.9 PG (27.0-31.0) H Mean Corpuscular Hemoglobin Concent 32.6 G/DL (32.0-36.0) Red Cell Distribution Width 15.0 % (11.6-14.8) H Platelet Count 185 K/UL (150-450) Mean Platelet Volume 7.1 FL (6.5-10.1) Neutrophils (%) (Auto) 65.6 % (45.0-75.0) Lymphocytes (%) (Auto) 20.3 % (20.0-45.0) Monocytes (%) (Auto) 8.5 % (1.0-10.0) Eosinophils (%) (Auto) 5.0 % (0.0-3.0) H Basophils (%) (Auto) 0.7 % (0.0-2.0) Sodium Level 144 MMOL/L (136-145) Potassium Level 4.6 MMOL/L (3.5-5.1) Chloride Level 113 MMOL/L (98-107) H Carbon Dioxide Level 18 MMOL/L (21-32) L Anion Gap 14 mmol/L (5-15) Blood Urea Nitrogen 56 mg/dL (7-18) H Creatinine 4.2 MG/DL (0.55-1.30) H Estimat Glomerular Filtration Rate 14.4 mL/min (>60) Glucose Level 161 MG/DL (74-106) #H Calcium Level 8.5 MG/DL (8.5-10.1) Microbiology Date/Time Source Procedure Growth Status 08/09/17 21:30 Blood Blood Culture - Preliminary Gram Positive Cocci Resulted 08/09/17 21:20 Blood Blood Culture - Preliminary NO GROWTH AFTER 48 HOURS Resulted 08/10/17 00:10 Arm Left Catheter Tip Culture - Preliminary NO GROWTH AFTER 24 HOURS Resulted Intake and Output 08/11/17 08/12/17 19:00 07:00 Intake Total 1170 ml 550 ml Output Total 1000 ml Balance 170 ml 550 ml Intake Oral 560 ml IV Total 610 ml 550 ml Output Urine Total 1000 ml # Voids 2 Objective General Appearance: WD/WN, no apparent distress, alert Neck: non-tender, normal alignment, supple Cardiovascular: normal peripheral pulses, normal rate, regular rhythm, no gallop/murmur, no JVD Respiratory/Chest: chest wall non-tender, lungs clear, normal breath sounds, no respiratory distress, no accessory muscle use Extremities: normal range of motion, non-tender Neurologic: no motor/sensory deficits Skin: normal pigmentation, warm/dry Assessment/Plan Problem List: (1) Acute hyperglycemia Assessment & Plan: ? secondaary to infection? See ID and endocrinology note. (2) Uncontrolled diabetes mellitus Assessment & Plan: Continue levemir and novolog sliding scale per endocrinology (3) Anemia (4) CKD (chronic kidney disease), stage III Assessment & Plan: See nephrology note. (5) Hyperglycemia due to type 2 diabetes mellitus (6) CAD (coronary artery disease) (7) HTN (hypertension) Assessment & Plan: Cont lopressor and norvasc. (8) Acute hyperglycemia (9) Gastritis (10) BPH (benign prostatic hyperplasia) (11) Hypercholesteremia (12) Sepsis Assessment & Plan: Staph epidermidis. See ID note. Replace PICC. Continue daptomycin day #6/14 or longer if 2nd blood culture positive per ID Status: DEE Ballard Aug 12, 2017 16:31
--- NOTE | 2017-08-12 18:27 | Pulmonology Progress Note ---
Assessment/Plan Problems: (1) Bacteremia (2) Uncontrolled diabetes mellitus (3) Anemia in chronic kidney disease (4) Psychiatric disturbance (5) Anemia (6) Renal transplant recipient Assessment/Plan improving all reviewed sliding scale iv fluids psych f/u diabetic diet f/u blood culture sensitivities f/u ID recommendations continue abx dc planning soon Subjective ROS Limited/Unobtainable: No Constitutional: Reports: no symptoms HEENT: Repors: no symptoms Respiratory: Reports: no symptoms Allergies: Coded Allergies: CEFEPIME (Verified Allergy, Intermediate, Rash, 01/23/13) Objective Last 24 Hour Vital Signs Date Time Temp Pulse Resp B/P (MAP) Pulse Ox O2 Delivery O2 Flow Rate FiO2 08/12/17 18:06 65 138/82 08/12/17 16:00 97.6 65 20 138/82 100 08/12/17 12:00 98.3 65 20 175/87 100 08/12/17 11:57 178/89 08/12/17 08:48 76 161/86 08/12/17 08:47 76 161/86 08/12/17 08:00 98.2 76 20 161/86 100 08/12/17 07:35 71 18 Room Air 21 08/12/17 04:00 98.1 66 20 145/66 99 Room Air 08/12/17 00:00 98.3 69 20 149/72 98 Room Air 08/11/17 21:08 76 122/69 08/11/17 20:00 97.4 76 20 122/69 98 Room Air 08/11/17 19:24 73 18 Room Air 21 Intake and Output 08/11/17 08/12/17 19:00 07:00 Intake Total 1170 ml 550 ml Output Total 1000 ml Balance 170 ml 550 ml Intake Oral 560 ml IV Total 610 ml 550 ml Output Urine Total 1000 ml # Voids 2 Objective General Appearance: WN Lines, tubes and drains: peripheral HEENT: normocephalic, atraumatic Neck: non-tender, normal alignment Respiratory/Chest: chest wall non-tender, lungs clear Cardiovascular/Chest: normal peripheral pulses, normal rate Abdomen: normal bowel sounds, non tender Genitourinary/Rectal: normal genital exam, normal rectal exam Skin Exam: normal pigmentation Microbiology Date/Time Source Procedure Growth Status 08/09/17 21:30 Blood Blood Culture - Preliminary Gram Positive Cocci Resulted 08/09/17 21:20 Blood Blood Culture - Preliminary NO GROWTH AFTER 48 HOURS Resulted 08/10/17 00:10 Arm Left Catheter Tip Culture - Preliminary NO GROWTH AFTER 24 HOURS Resulted Laboratory Tests 08/12/17 09:10: White Blood Count 6.9, Red Blood Count 2.93L, Hemoglobin 9.6L, Hematocrit 29.6L , Mean Corpuscular Volume 101H, Mean Corpuscular Hemoglobin 32.9H, Mean Corpuscular Hemoglobin Concent 32.6, Red Cell Distribution Width 15.0H, Platelet Count 185, Mean Platelet Volume 7.1, Neutrophils (%) (Auto) 65.6, Lymphocytes (%) (Auto) 20.3, Monocytes (%) (Auto) 8.5, Eosinophils (%) (Auto) 5.0H, Basophils (%) (Auto) 0.7, Sodium Level 144, Potassium Level 4.6, Chloride Level 113H, Carbon Dioxide Level 18L, Anion Gap 14, Blood Urea Nitrogen 56H, Creatinine 4.2H, Estimat Glomerular Filtration Rate 14.4, Glucose Level 161#H, Calcium Level 8.5 Current Medications Medications (Trade) Dose Ordered Sig/Dunia Route PRN Reason Start Time Stop Time Status Last Admin Dose Admin Acetaminophen (Tylenol) 650 mg Q4H PRN ORAL fever 08/06/17 22:45 09/05/17 22:44 08/07/17 10:56 Amlodipine Besylate (Norvasc) 5 mg BID ORAL 08/09/17 18:00 09/06/17 08:59 08/12/17 18:06 Azathioprine (Imuran) 50 mg DAILY ORAL 08/07/17 09:00 09/06/17 08:59 08/12/17 08:46 Clonidine HCl (Catapres Tab) 0.1 mg Q4H PRN ORAL sbp more than 160 08/06/17 22:45 09/05/17 22:44 08/12/17 11:57 Daptomycin 500 mg/ Sodium Chloride 55 ml @ 110 mls/hr Q48H IV 08/07/17 14:00 08/14/17 13:59 08/11/17 15:35 Dextrose (Dextrose 50%) STAT PRN IV Hypoglycemia 08/08/17 09:00 09/07/17 08:59 08/10/17 18:27 Docusate Sodium (Colace) 100 mg TID ORAL 08/09/17 18:00 09/08/17 17:59 08/12/17 18:06 Duloxetine HCl (Cymbalta) 30 mg DAILY ORAL 08/07/17 09:00 09/06/17 08:59 08/12/17 08:47 Epoetin Jose (Procrit (for non ESRD use)) 10,000 units MON-WED-WED SUBQ 08/11/17 21:00 09/10/17 20:59 08/11/17 21:32 Finasteride (Proscar) 5 mg DAILY ORAL 08/07/17 09:00 09/06/17 08:59 08/12/17 08:48 Heparin Sodium (Porcine) (Heparin 5000 units/ml) 5,000 units EVERY 12 HOURS SUBQ 08/07/17 09:00 09/06/17 08:59 08/12/17 08:45 Insulin Aspart (NovoLOG) BEFORE MEALS AND HS SUBQ 08/10/17 21:00 09/09/17 20:59 08/12/17 11:51 Insulin Aspart (NovoLOG) 5 units NOVOTIAC SUBQ 08/12/17 06:30 09/11/17 06:29 08/12/17 11:51 Insulin Detemir (Levemir) 10 units BID SUBQ 08/09/17 21:00 09/08/17 20:59 08/12/17 18:01 Metoprolol Tartrate (Lopressor) 50 mg Q12HR ORAL 08/07/17 21:00 09/06/17 20:59 08/12/17 08:47 Morphine Sulfate (Morphine Sulfate) 2 mg Q4H PRN IVP severe pain 7-10 08/06/17 22:45 08/13/17 22:44 Nitroglycerin (Ntg) 0.4 mg Q5M X 3 DOSES PRN SL Prn Chest Pain 08/06/17 22:45 09/05/17 22:44 Ondansetron HCl (Zofran) 4 mg Q6H PRN IVP Nausea & Vomiting 08/06/17 22:45 09/05/17 22:44 Pantoprazole (Protonix) 40 mg DAILY ORAL 08/09/17 16:30 09/08/17 16:29 08/12/17 08:47 Polyethylene Glycol (Miralax) 17 gm HSPRN PRN ORAL Constipation 08/06/17 22:45 09/05/17 22:44 Sevelamer Carbonate (Renvela) 800 mg TID@0800,1200,1700 ORAL 08/07/17 08:00 09/06/17 07:59 08/12/17 18:06 Sodium Chloride 1,000 ml @ 50 mls/hr Q20H IVLG 08/09/17 16:00 09/08/17 15:59 08/11/17 15:35 Sodium Citrate (Bicitra) 30 ml EVERY 6 HOURS ORAL 08/10/17 12:00 09/09/17 11:59 08/12/17 18:06 Tamsulosin HCl (Flomax) 0.4 mg Q12HR ORAL 08/07/17 21:00 09/06/17 20:59 08/12/17 08:47 Temazepam (Restoril) 15 mg HSPRN PRN ORAL Insomnia 08/06/17 22:45 08/13/17 22:44 MARGO GALLEGOS Aug 12, 2017 18:27
[2017-08-12 20:00] VITALS: BP 140/69
[2017-08-13] VITALS: BP 136/66
[2017-08-13] MEDS: Sodium Citrate 30ml ORAL SCH ×4 (01:00→18:07)
[2017-08-13 04:00] VITALS: BP 156/77
[2017-08-13] MEDS: NovoLOG Insulin Flexpen SUBQ SCH ×7 (06:30→21:10)
--- NOTE | 2017-08-13 06:40 | General Progress Note ---
Assessment/Plan Problem List: (1) ESRD (end stage renal disease) ICD Codes: N18.6 - End stage renal disease SNOMED: 97902676 (2) History of simultaneous kidney and pancreas transplant ICD Codes: Z94.0 - History of simultaneous kidney and pancreas transplant; Z94.83 - Pancreas transplant status SNOMED: 595234129 (3) Uncontrolled diabetes mellitus ICD Codes: E11.65 - Type 2 diabetes mellitus with hyperglycemia SNOMED: 910418202 Assessment/Plan continue Levemir 10 units bid - do not hold continue Novolog 5 units ac tid continue NISS sensitive scale discussed with RN Subjective Allergies: Coded Allergies: CEFEPIME (Verified Allergy, Intermediate, Rash, 01/23/13) All Systems: reviewed and negative except above Subjective events noted Objective Last 24 Hour Vital Signs Date Time Temp Pulse Resp B/P (MAP) Pulse Ox O2 Delivery O2 Flow Rate FiO2 08/13/17 04:00 97.8 69 21 156/77 99 Room Air 08/13/17 00:00 97.0 63 20 136/66 99 Room Air 08/12/17 21:25 68 140/69 08/12/17 20:00 96.8 68 20 140/69 99 Room Air 08/12/17 18:46 68 18 Room Air 21 08/12/17 18:06 65 138/82 08/12/17 16:00 97.6 65 20 138/82 100 08/12/17 12:00 98.3 65 20 175/87 100 08/12/17 11:57 178/89 08/12/17 08:48 76 161/86 08/12/17 08:47 76 161/86 08/12/17 08:00 98.2 76 20 161/86 100 08/12/17 07:35 71 18 Room Air 21 Intake and Output 08/12/17 08/13/17 19:00 07:00 Intake Total 360 ml 540 ml Output Total 600 ml Balance 360 ml -60 ml Intake Oral 360 ml 240 ml IV Total 300 ml Output Urine Total 600 ml # Voids 2 2 Laboratory Tests 08/12/17 09:10: White Blood Count 6.9, Red Blood Count 2.93L, Hemoglobin 9.6L, Hematocrit 29.6L , Mean Corpuscular Volume 101H, Mean Corpuscular Hemoglobin 32.9H, Mean Corpuscular Hemoglobin Concent 32.6, Red Cell Distribution Width 15.0H, Platelet Count 185, Mean Platelet Volume 7.1, Neutrophils (%) (Auto) 65.6, Lymphocytes (%) (Auto) 20.3, Monocytes (%) (Auto) 8.5, Eosinophils (%) (Auto) 5.0H, Basophils (%) (Auto) 0.7, Sodium Level 144, Potassium Level 4.6, Chloride Level 113H, Carbon Dioxide Level 18L, Anion Gap 14, Blood Urea Nitrogen 56H, Creatinine 4.2H, Estimat Glomerular Filtration Rate 14.4, Glucose Level 161#H, Calcium Level 8.5 Height (Feet): 5 Height (Inches): 8.00 Weight (Pounds): 209 General Appearance: no apparent distress Neck: normal alignment Cardiovascular: normal rate Respiratory/Chest: lungs clear Abdomen: normal bowel sounds Edema: no edema noted Arm (L), no edema noted Arm (R), no edema noted Leg (L), no edema noted Leg (R), no edema noted Pedal (L), no edema noted Pedal (R), no edema noted Generalized Objective Current Medications Medications (Trade) Dose Ordered Sig/Dunia Route PRN Reason Start Time Stop Time Status Last Admin Dose Admin Acetaminophen (Tylenol) 650 mg Q4H PRN ORAL fever 08/06/17 22:45 09/05/17 22:44 08/07/17 10:56 Amlodipine Besylate (Norvasc) 5 mg BID ORAL 08/09/17 18:00 09/06/17 08:59 08/12/17 18:06 Azathioprine (Imuran) 50 mg DAILY ORAL 08/07/17 09:00 09/06/17 08:59 08/12/17 08:46 Clonidine HCl (Catapres Tab) 0.1 mg Q4H PRN ORAL sbp more than 160 08/06/17 22:45 09/05/17 22:44 08/12/17 11:57 Daptomycin 500 mg/ Sodium Chloride 55 ml @ 110 mls/hr Q48H IV 08/07/17 14:00 08/14/17 13:59 08/11/17 15:35 Dextrose (Dextrose 50%) STAT PRN IV Hypoglycemia 08/08/17 09:00 09/07/17 08:59 08/10/17 18:27 Docusate Sodium (Colace) 100 mg TID ORAL 08/09/17 18:00 09/08/17 17:59 08/12/17 18:06 Duloxetine HCl (Cymbalta) 30 mg DAILY ORAL 08/07/17 09:00 09/06/17 08:59 08/12/17 08:47 Epoetin Jose (Procrit (for non ESRD use)) 10,000 units MON-WED-WED SUBQ 08/11/17 21:00 09/10/17 20:59 08/11/17 21:32 Finasteride (Proscar) 5 mg DAILY ORAL 08/07/17 09:00 09/06/17 08:59 08/12/17 08:48 Heparin Sodium (Porcine) (Heparin 5000 units/ml) 5,000 units EVERY 12 HOURS SUBQ 08/07/17 09:00 09/06/17 08:59 08/12/17 21:37 Insulin Aspart (NovoLOG) BEFORE MEALS AND HS SUBQ 08/10/17 21:00 09/09/17 20:59 08/12/17 21:00 Insulin Aspart (NovoLOG) 5 units NOVOTIAC SUBQ 08/12/17 06:30 09/11/17 06:29 08/12/17 11:51 Insulin Detemir (Levemir) 10 units BID SUBQ 08/09/17 21:00 09/08/17 20:59 08/12/17 18:01 Metoprolol Tartrate (Lopressor) 50 mg Q12HR ORAL 08/07/17 21:00 09/06/17 20:59 08/12/17 21:25 Morphine Sulfate (Morphine Sulfate) 2 mg Q4H PRN IVP severe pain 7-10 08/06/17 22:45 08/13/17 22:44 Nitroglycerin (Ntg) 0.4 mg Q5M X 3 DOSES PRN SL Prn Chest Pain 08/06/17 22:45 09/05/17 22:44 Ondansetron HCl (Zofran) 4 mg Q6H PRN IVP Nausea & Vomiting 08/06/17 22:45 09/05/17 22:44 Pantoprazole (Protonix) 40 mg DAILY ORAL 08/09/17 16:30 09/08/17 16:29 08/12/17 08:47 Polyethylene Glycol (Miralax) 17 gm HSPRN PRN ORAL Constipation 08/06/17 22:45 09/05/17 22:44 Sevelamer Carbonate (Renvela) 800 mg TID@0800,1200,1700 ORAL 08/07/17 08:00 09/06/17 07:59 08/12/17 18:06 Sodium Chloride 1,000 ml @ 50 mls/hr Q20H IVLG 08/09/17 16:00 09/08/17 15:59 08/13/17 00:00 Sodium Citrate (Bicitra) 30 ml EVERY 6 HOURS ORAL 08/10/17 12:00 09/09/17 11:59 08/13/17 01:00 Tamsulosin HCl (Flomax) 0.4 mg Q12HR ORAL 08/07/17 21:00 09/06/17 20:59 08/12/17 21:25 Temazepam (Restoril) 15 mg HSPRN PRN ORAL Insomnia 08/06/17 22:45 08/13/17 22:44 Item Value Date Time Bedside Blood Glucose 219 mg/dl H 08/12/17 2100 Bedside Blood Glucose 61 mg/dl L 08/12/17 1801 Bedside Blood Glucose 243 mg/dl H 08/12/17 1151 Bedside Blood Glucose 146 mg/dl H 08/12/17 0845 MALKA SHERIFF Aug 13, 2017 06:40
--- NOTE | 2017-08-13 07:34 | Pulmonology Progress Note ---
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 ) CKD st 3 DM OOC diabetic nephropathy anemia of chronic kidney disease Dehydration ( partially probably due to hyperglycemia) hyperkalemia MDD BPH PLAN OF CARE [facility] floor initial bl cx 4/4 + Stap epi Repeated +Staph epi last set bl cx 08/11 - prel negative cath tip PICC prel negative Abx ID follows ECHO no evidence of vegetation, consider TTE Nephro follows renal US with no evidence of hydronephrosis Slow hydration monitor renal parameters, avoid nephrotoxic, correct lytes as needed BS management as per endo with Levemir, premeal Novolog and SS prn , [id number] continue Flomax, monitor HH, on EPO, transfused prn Psych follows, not a DTS or DTO, optimized psych med regimen DNR/DNI status case discussed and evaluated by supervising physician Subjective Allergies: Coded Allergies: CEFEPIME (Verified Allergy, Intermediate, Rash, 01/23/13) Subjective creat trending down afebrile, no leukocytosis on RA no signs of resp distress Objective Last 24 Hour Vital Signs Date Time Temp Pulse Resp B/P (MAP) Pulse Ox O2 Delivery O2 Flow Rate FiO2 08/13/17 04:00 97.8 69 21 156/77 99 Room Air 08/13/17 00:00 97.0 63 20 136/66 99 Room Air 08/12/17 21:25 68 140/69 08/12/17 20:00 96.8 68 20 140/69 99 Room Air 08/12/17 18:46 68 18 Room Air 21 08/12/17 18:06 65 138/82 08/12/17 16:00 97.6 65 20 138/82 100 08/12/17 12:00 98.3 65 20 175/87 100 08/12/17 11:57 178/89 08/12/17 08:48 76 161/86 08/12/17 08:47 76 161/86 08/12/17 08:00 98.2 76 20 161/86 100 08/12/17 07:35 71 18 Room Air 21 Intake and Output 08/12/17 08/13/17 19:00 07:00 Intake Total 360 ml 900 ml Output Total 900 ml Balance 360 ml 0 ml Intake Oral 360 ml 600 ml IV Total 300 ml Output Urine Total 900 ml # Voids 2 2 General Appearance: no acute distress, other - awqake, alert, responsive HEENT: normocephalic, atraumatic, anicteric Respiratory/Chest: lungs clear, normal breath sounds, no respiratory distress Cardiovascular: normal peripheral pulses, normal rate Abdomen: normal bowel sounds, soft, non tender, non distended Neurologic/Psychiatric: alert, responsive Musculoskeletal: normal muscle bulk Microbiology Date/Time Source Procedure Growth Status 08/11/17 13:05 Blood Blood Culture - Preliminary NO GROWTH AFTER 24 HOURS Resulted 08/11/17 13:00 Blood Blood Culture - Preliminary NO GROWTH AFTER 24 HOURS Resulted Laboratory Tests 08/12/17 09:10: White Blood Count 6.9, Red Blood Count 2.93L, Hemoglobin 9.6L, Hematocrit 29.6L , Mean Corpuscular Volume 101H, Mean Corpuscular Hemoglobin 32.9H, Mean Corpuscular Hemoglobin Concent 32.6, Red Cell Distribution Width 15.0H, Platelet Count 185, Mean Platelet Volume 7.1, Neutrophils (%) (Auto) 65.6, Lymphocytes (%) (Auto) 20.3, Monocytes (%) (Auto) 8.5, Eosinophils (%) (Auto) 5.0H, Basophils (%) (Auto) 0.7, Sodium Level 144, Potassium Level 4.6, Chloride Level 113H, Carbon Dioxide Level 18L, Anion Gap 14, Blood Urea Nitrogen 56H, Creatinine 4.2H, Estimat Glomerular Filtration Rate 14.4, Glucose Level 161#H, Calcium Level 8.5 Current Medications Medications (Trade) Dose Ordered Sig/Dunia Route PRN Reason Start Time Stop Time Status Last Admin Dose Admin Acetaminophen (Tylenol) 650 mg Q4H PRN ORAL fever 08/06/17 22:45 09/05/17 22:44 08/07/17 10:56 Amlodipine Besylate (Norvasc) 5 mg BID ORAL 08/09/17 18:00 09/06/17 08:59 08/12/17 18:06 Azathioprine (Imuran) 50 mg DAILY ORAL 08/07/17 09:00 09/06/17 08:59 08/12/17 08:46 Clonidine HCl (Catapres Tab) 0.1 mg Q4H PRN ORAL sbp more than 160 08/06/17 22:45 09/05/17 22:44 08/12/17 11:57 Daptomycin 500 mg/ Sodium Chloride 55 ml @ 110 mls/hr Q48H IV 08/07/17 14:00 08/14/17 13:59 08/11/17 15:35 Dextrose (Dextrose 50%) STAT PRN IV Hypoglycemia 08/08/17 09:00 09/07/17 08:59 08/10/17 18:27 Docusate Sodium (Colace) 100 mg TID ORAL 08/09/17 18:00 09/08/17 17:59 08/12/17 18:06 Duloxetine HCl (Cymbalta) 30 mg DAILY ORAL 08/07/17 09:00 09/06/17 08:59 08/12/17 08:47 Epoetin Jose (Procrit (for non ESRD use)) 10,000 units WED-WED-WED SUBQ 08/11/17 21:00 09/10/17 20:59 08/11/17 21:32 Finasteride (Proscar) 5 mg DAILY ORAL 08/07/17 09:00 09/06/17 08:59 08/12/17 08:48 Heparin Sodium (Porcine) (Heparin 5000 units/ml) 5,000 units EVERY 12 HOURS SUBQ 08/07/17 09:00 09/06/17 08:59 08/12/17 21:37 Insulin Aspart (NovoLOG) BEFORE MEALS AND HS SUBQ 08/10/17 21:00 09/09/17 20:59 08/12/17 21:00 Insulin Aspart (NovoLOG) 5 units NOVOTIAC SUBQ 08/12/17 06:30 09/11/17 06:29 08/13/17 07:08 Insulin Detemir (Levemir) 10 units BID SUBQ 08/09/17 21:00 09/08/17 20:59 08/12/17 18:01 Metoprolol Tartrate (Lopressor) 50 mg Q12HR ORAL 08/07/17 21:00 09/06/17 20:59 08/12/17 21:25 Morphine Sulfate (Morphine Sulfate) 2 mg Q4H PRN IVP severe pain 7-10 08/06/17 22:45 08/13/17 22:44 Nitroglycerin (Ntg) 0.4 mg Q5M X 3 DOSES PRN SL Prn Chest Pain 08/06/17 22:45 09/05/17 22:44 Ondansetron HCl (Zofran) 4 mg Q6H PRN IVP Nausea & Vomiting 08/06/17 22:45 09/05/17 22:44 Pantoprazole (Protonix) 40 mg DAILY ORAL 08/09/17 16:30 09/08/17 16:29 08/12/17 08:47 Polyethylene Glycol (Miralax) 17 gm HSPRN PRN ORAL Constipation 08/06/17 22:45 09/05/17 22:44 Sevelamer Carbonate (Renvela) 800 mg TID@0800,1200,1700 ORAL 08/07/17 08:00 09/06/17 07:59 08/12/17 18:06 Sodium Chloride 1,000 ml @ 50 mls/hr Q20H IVLG 08/09/17 16:00 09/08/17 15:59 08/13/17 00:00 Sodium Citrate (Bicitra) 30 ml EVERY 6 HOURS ORAL 08/10/17 12:00 09/09/17 11:59 08/13/17 06:56 Tamsulosin HCl (Flomax) 0.4 mg Q12HR ORAL 08/07/17 21:00 09/06/17 20:59 08/12/17 21:25 Temazepam (Restoril) 15 mg HSPRN PRN ORAL Insomnia 08/06/17 22:45 08/13/17 22:44 Catherine Griffin NP (Vanchtein) Aug 13, 2017 07:34
[2017-08-13] MEDS: Levemir Flexpen SUBQ SCH ×2 (08:15→18:05)
[2017-08-13] MEDS: Heparin 5000 units/ml inj SUBQ SCH ×2 (08:18→21:07)
[2017-08-13] MEDS: DULoxetine 30mg cap ORAL SCH (08:19)
[2017-08-13] MEDS: Renvela 800mg Pkt ORAL SCH ×3 (08:19→18:07)
[2017-08-13] MEDS: Metoprolol Tartrate 50mg tab ORAL SCH ×2 (08:20→21:06)
[2017-08-13] MEDS: Tamsulosin 0.4mg cap ORAL SCH ×2 (08:20→21:04)
[2017-08-13] MEDS: azaTHIOprine 50 MG TAB ORAL SCH (08:20)
[2017-08-13] MEDS: Docusate 100mg cap ORAL SCH ×3 (08:20→18:08)
[2017-08-13 08:25] VITALS: BP 150/72
[2017-08-13 10:50] LABS: BASOPHILS % (AUTO) 0.8 % (0.0-2.0); EOSINOPHILS % (AUTO) 3.7 % (0.0-3.0); HEMATOCRIT 26.8 % (42.0-52.0); HEMOGLOBIN 8.7 G/DL (14.2-18.0); LYMPHOCYTES % (AUTO) 19.4 % (20.0-45.0); MEAN CORPUSCULAR VOLUME 100 FL (80-99); MONOCYTES % (AUTO) 7.4 % (1.0-10.0); NEUTROPHILS % (AUTO) 68.8 % (45.0-75.0); PLATELET COUNT 198 K/UL (150-450); RED BLOOD COUNT 2.68 M/UL (4.70-6.10); RED CELL DISTRIBUTION WIDTH 14.8 % (11.6-14.8); WHITE BLOOD COUNT 6.5 K/UL (4.8-10.8)
[2017-08-13 11:09] LABS: ANION GAP 9 mmol/L (5-15); BLOOD UREA NITROGEN 49 mg/dL (7-18); CALCIUM 8.2 MG/DL (8.5-10.1); CARBON DIOXIDE 23 MMOL/L (21-32); CHLORIDE 113 MMOL/L (98-107); CREATININE 3.9 MG/DL (0.55-1.30); POTASSIUM 4.3 MMOL/L (3.5-5.1); SODIUM 145 MMOL/L (136-145)
--- NOTE | 2017-08-13 11:24 | Nephrology Progress Note ---
Assessment/Plan Problem List: (1) CKD (chronic kidney disease), stage III (2) DM (diabetes mellitus) (3) Anemia (4) HTN (hypertension) (5) CAD (coronary artery disease) (6) Pulmonary HTN Plan await BMP on Epogen watch BP discussed with RN Subjective Subjective feels ok Objective Objective Last 24 Hour Vital Signs Date Time Temp Pulse Resp B/P (MAP) Pulse Ox O2 Delivery O2 Flow Rate FiO2 08/13/17 08:25 97.9 73 18 150/72 08/13/17 08:20 69 156/77 08/13/17 08:20 69 156/77 08/13/17 04:00 97.8 69 21 156/77 99 Room Air 08/13/17 00:00 97.0 63 20 136/66 99 Room Air 08/12/17 21:25 68 140/69 08/12/17 20:00 96.8 68 20 140/69 99 Room Air 08/12/17 18:46 68 18 Room Air 21 08/12/17 18:06 65 138/82 08/12/17 16:00 97.6 65 20 138/82 100 08/12/17 12:00 98.3 65 20 175/87 100 08/12/17 11:57 178/89 Intake and Output 08/12/17 08/13/17 19:00 07:00 Intake Total 360 ml 900 ml Output Total 900 ml Balance 360 ml 0 ml Intake Oral 360 ml 600 ml IV Total 300 ml Output Urine Total 900 ml # Voids 2 2 Laboratory Tests 08/13/17 10:20: White Blood Count 6.5, Red Blood Count 2.68L, Hemoglobin 8.7L, Hematocrit 26.8L , Mean Corpuscular Volume 100H, Mean Corpuscular Hemoglobin 32.5H, Mean Corpuscular Hemoglobin Concent 32.6, Red Cell Distribution Width 14.8, Platelet Count 198, Mean Platelet Volume 7.2, Neutrophils (%) (Auto) 68.8, Lymphocytes (% ) (Auto) 19.4L, Monocytes (%) (Auto) 7.4, Eosinophils (%) (Auto) 3.7H, Basophils (%) (Auto) 0.8, Sodium Level 145, Potassium Level 4.3, Chloride Level 113H, Carbon Dioxide Level 23, Anion Gap 9, Blood Urea Nitrogen 49H, Creatinine 3.9H, Estimat Glomerular Filtration Rate 15.7, Glucose Level 193H, Calcium Level 8.2L Height (Feet): 5 Height (Inches): 8.00 Weight (Pounds): 209 Cardiovascular: normal rate Respiratory/Chest: lungs clear Extremities: moderate edema SIMI HAN Aug 13, 2017 11:24
[2017-08-13 12:15] VITALS: BP_SYST 124; BP_SYST 95; BP_DIAS 72; BP_DIAS 91
--- NOTE | 2017-08-13 12:54 | Progress Note ---
DATE: 08/11/2017 SUBJECTIVE: The patient was found in bed, in no acute distress. Pleasant and cooperative. He has had no new complaints. Sleep is adequate. Appetite is adequate. MENTAL STATUS EXAMINATION: The patient is alert and oriented times self, place, time, and situation he is in. Cooperative. Mood is neutral. Affect is full range. Congruent with mood. Thought process is linear. Thought content, no suicidal or homicidal ideations. ASSESSMENT: Bipolar disorder. The patient is not in danger to self or others. PLAN: 1. We will continue the Cymbalta. 2. We will continue to follow and readjust the medications. Fatmata Lu M.D. DR: PENELOPE JOB#: [id number] CC:
--- NOTE | 2017-08-13 12:56 | Progress Note ---
DATE: 08/12/2017 SUBJECTIVE: The patient is presenting with anxiety. Other than that, he is pleasant, cooperative, calm, in no acute distress. No behavior issues. MENTAL STATUS EXAMINATION: The patient is alert and oriented times self, place, and situation he is in. Mood is neutral. Affect is constricted, congruent with mood. Thought process is concrete. Thought content, no suicidal or homicidal ideation. ASSESSMENT: Stable, no danger to self or others. PLAN: We will continue the current medications. The patient is cleared from a psychiatric point of view for discharge. Fatmata Lu M.D. DR: TON JOB#: [id number] CC:
--- NOTE | 2017-08-13 14:26 | Infectious Diseases Prog Note ---
Assessment/Plan Assessment/Plan ASSESSMENT: The patient is a 62-year-old male with: Persistent Staph Epi bacteremia- initially suspected 2ry to infected PICC line, however patient persist bacteremic despite line removal, there for suspicion for occult source or endovascular source- r/o endocarditis -s/p PICC removal 08/09; cath cx NTD -08/06 Bcx 4/ Staph epi/MRSE (labeld peripheral), Bcx 08/07 NTD, 08/08 (line) 2/ 2 MRSE; 08/09 1 GPC clusters (however line was still in place); Bcx 08/11 1/ GPC clusters -TTE: Thickened mitral valve leaflets with normal excursion. Mild mitral annulus and aortic root calcification. Pulmonic valve is well visualized. Normal tricuspid valve structure. No echodensity is seen on valves (vegetation) , consider AMY if clinically indicated. Low-grade fever/leukocytosis- resolved -u/a no pyuria, ucx 10-20k mixed gram positive -CXR no acute disease Uncontrolled diabetes, probably due to sepsis. 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 -History of renal and pancreas transplant about 10 years ago. 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 -07/15 E fecalis (Amp R, Vanco S) - History of suicidal attempts in the past. -. History of myocardial infarction. -. History of anemia. -. History of colon polyps. PLAN: -Continue daptomycin #7 for S. epi bacteremia; duration to follow pending AMY, but minimum of 4 weeks from 1st of neg bcx. -08/09 SP Aztreonam #3 -AMY to eval for endocarditis -repeat 2 sets of Bcx -Hold picc line placement until Bcx negative for 48-72hrs -f/u repeat bcx - Monitor CBC/BMP, temperatuers -aspiration precautions Thank you, Dr. Delgado, for allowing me to participate in the care of this patient. I will follow the patient with you during this hospitalization. Discussed with Dr delgado, Dr Glasgow and case coordinator. Subjective Allergies: Coded Allergies: CEFEPIME (Verified Allergy, Intermediate, Rash, 01/23/13) Subjective afebrile no leukocytosis repeat Bcx 08/11 (after line removal) are still + Objective Vital Signs Last 24 Hour Vital Signs Date Time Temp Pulse Resp B/P (MAP) Pulse Ox O2 Delivery O2 Flow Rate FiO2 08/13/17 12:15 98.7 83 20 95/72 97 Room Air 08/13/17 08:25 97.9 73 18 150/72 08/13/17 08:20 69 156/77 08/13/17 08:20 69 156/77 08/13/17 04:00 97.8 69 21 156/77 99 Room Air 08/13/17 00:00 97.0 63 20 136/66 99 Room Air 08/12/17 21:25 68 140/69 08/12/17 20:00 96.8 68 20 140/69 99 Room Air 08/12/17 18:46 68 18 Room Air 21 08/12/17 18:06 65 138/82 08/12/17 16:00 97.6 65 20 138/82 100 Height (Feet): 5 Height (Inches): 8.00 Weight (Pounds): 209 Objective HEENT: No pale conjunctivae. No icterus. CHEST: Clear. HEART: S1 and S2. ABDOMEN: Soft, obese, nontender. EXTREMITIES: picc line removed, no rash NEUROLOGIC: Awake and alert. SKIN: The patient has scattered scratch velasquez on the upper and lower extremities. Microbiology Date/Time Source Procedure Growth Status 08/11/17 13:05 Blood Blood Culture - Preliminary Resulted 08/11/17 13:00 Blood Blood Culture - Preliminary NO GROWTH AFTER 24 HOURS Resulted Laboratory Tests Test 08/13/17 10:20 White Blood Count 6.5 K/UL (4.8-10.8) Red Blood Count 2.68 M/UL (4.70-6.10) L Hemoglobin 8.7 G/DL (14.2-18.0) L Hematocrit 26.8 % (42.0-52.0) L Mean Corpuscular Volume 100 FL (80-99) H Mean Corpuscular Hemoglobin 32.5 PG (27.0-31.0) H Mean Corpuscular Hemoglobin Concent 32.6 G/DL (32.0-36.0) Red Cell Distribution Width 14.8 % (11.6-14.8) Platelet Count 198 K/UL (150-450) Mean Platelet Volume 7.2 FL (6.5-10.1) Neutrophils (%) (Auto) 68.8 % (45.0-75.0) Lymphocytes (%) (Auto) 19.4 % (20.0-45.0) L Monocytes (%) (Auto) 7.4 % (1.0-10.0) Eosinophils (%) (Auto) 3.7 % (0.0-3.0) H Basophils (%) (Auto) 0.8 % (0.0-2.0) Sodium Level 145 MMOL/L (136-145) Potassium Level 4.3 MMOL/L (3.5-5.1) Chloride Level 113 MMOL/L (98-107) H Carbon Dioxide Level 23 MMOL/L (21-32) Anion Gap 9 mmol/L (5-15) Blood Urea Nitrogen 49 mg/dL (7-18) H Creatinine 3.9 MG/DL (0.55-1.30) H Estimat Glomerular Filtration Rate 15.7 mL/min (>60) Glucose Level 193 MG/DL (74-106) H Calcium Level 8.2 MG/DL (8.5-10.1) L Current Medications Medications (Trade) Dose Ordered Sig/Dunia Route PRN Reason Start Time Stop Time Status Last Admin Dose Admin Acetaminophen (Tylenol) 650 mg Q4H PRN ORAL fever 08/06/17 22:45 09/05/17 22:44 08/07/17 10:56 Amlodipine Besylate (Norvasc) 5 mg BID ORAL 08/09/17 18:00 09/06/17 08:59 08/13/17 08:20 Azathioprine (Imuran) 50 mg DAILY ORAL 08/07/17 09:00 09/06/17 08:59 08/13/17 08:20 Clonidine HCl (Catapres Tab) 0.1 mg Q4H PRN ORAL sbp more than 160 08/06/17 22:45 09/05/17 22:44 08/12/17 11:57 Daptomycin 500 mg/ Sodium Chloride 55 ml @ 110 mls/hr Q48H IV 08/07/17 14:00 08/14/17 13:59 08/11/17 15:35 Dextrose (Dextrose 50%) STAT PRN IV Hypoglycemia 08/08/17 09:00 09/07/17 08:59 08/10/17 18:27 Docusate Sodium (Colace) 100 mg TID ORAL 08/09/17 18:00 09/08/17 17:59 08/13/17 12:08 Duloxetine HCl (Cymbalta) 30 mg DAILY ORAL 08/07/17 09:00 09/06/17 08:59 08/13/17 08:19 Epoetin Jose (Procrit (for non ESRD use)) 10,000 units WED-WED-WED SUBQ 08/11/17 21:00 09/10/17 20:59 08/11/17 21:32 Finasteride (Proscar) 5 mg DAILY ORAL 08/07/17 09:00 09/06/17 08:59 08/13/17 08:20 Heparin Sodium (Porcine) (Heparin 5000 units/ml) 5,000 units EVERY 12 HOURS SUBQ 08/07/17 09:00 09/06/17 08:59 08/13/17 08:18 Insulin Aspart (NovoLOG) BEFORE MEALS AND HS SUBQ 08/10/17 21:00 09/09/17 20:59 08/13/17 11:30 Insulin Aspart (NovoLOG) 5 units NOVOTIAC SUBQ 08/12/17 06:30 09/11/17 06:29 08/13/17 12:07 Insulin Detemir (Levemir) 10 units BID SUBQ 08/09/17 21:00 09/08/17 20:59 08/13/17 08:15 Metoprolol Tartrate (Lopressor) 50 mg Q12HR ORAL 08/07/17 21:00 09/06/17 20:59 08/13/17 08:20 Morphine Sulfate (Morphine Sulfate) 2 mg Q4H PRN IVP severe pain 7-10 08/06/17 22:45 08/13/17 22:44 Nitroglycerin (Ntg) 0.4 mg Q5M X 3 DOSES PRN SL Prn Chest Pain 08/06/17 22:45 09/05/17 22:44 Ondansetron HCl (Zofran) 4 mg Q6H PRN IVP Nausea & Vomiting 08/06/17 22:45 09/05/17 22:44 Pantoprazole (Protonix) 40 mg DAILY ORAL 08/09/17 16:30 09/08/17 16:29 2/2/18 08:20 Polyethylene Glycol (Miralax) 17 gm HSPRN PRN ORAL Constipation 08/06/17 22:45 09/05/17 22:44 Sevelamer Carbonate (Renvela) 800 mg TID@0800,1200,1700 ORAL 08/07/17 08:00 09/06/17 07:59 08/13/17 12:08 Sodium Chloride 1,000 ml @ 50 mls/hr Q20H IVLG 08/09/17 16:00 09/08/17 15:59 08/13/17 00:00 Sodium Citrate (Bicitra) 30 ml EVERY 6 HOURS ORAL 08/10/17 12:00 09/09/17 11:59 08/13/17 12:08 Tamsulosin HCl (Flomax) 0.4 mg Q12HR ORAL 08/07/17 21:00 09/06/17 20:59 08/13/17 08:20 Temazepam (Restoril) 15 mg HSPRN PRN ORAL Insomnia 08/06/17 22:45 08/13/17 22:44 Monique Read M.D. Aug 13, 2017 14:26
[2017-08-13] MEDS: DAPTOmycin 500 MG in NS 55 ML IV SCH (14:53)
[2017-08-13 16:00] VITALS: BP 146/74
--- NOTE | 2017-08-13 19:22 | Internal Med Progress Note ---
Subjective Date of Service: Aug 13, 2017 Physician Name Maher,Dee Attending Physician Christopher Rosado MD Current Medications Medications (Trade) Dose Ordered Sig/Dunia Route PRN Reason Start Time Stop Time Status Last Admin Dose Admin Acetaminophen (Tylenol) 650 mg Q4H PRN ORAL fever 08/06/17 22:45 09/05/17 22:44 08/07/17 10:56 Amlodipine Besylate (Norvasc) 5 mg BID ORAL 08/09/17 18:00 09/06/17 08:59 08/13/17 18:08 Azathioprine (Imuran) 50 mg DAILY ORAL 08/07/17 09:00 09/06/17 08:59 08/13/17 08:20 Clonidine HCl (Catapres Tab) 0.1 mg Q4H PRN ORAL sbp more than 160 08/06/17 22:45 09/05/17 22:44 08/12/17 11:57 Daptomycin 500 mg/ Sodium Chloride 55 ml @ 110 mls/hr Q48H IV 08/07/17 14:00 08/14/17 13:59 08/13/17 14:53 Dextrose (Dextrose 50%) STAT PRN IV Hypoglycemia 08/08/17 09:00 09/07/17 08:59 08/10/17 18:27 Docusate Sodium (Colace) 100 mg TID ORAL 08/09/17 18:00 09/08/17 17:59 08/13/17 18:08 Duloxetine HCl (Cymbalta) 30 mg DAILY ORAL 08/07/17 09:00 09/06/17 08:59 08/13/17 08:19 Epoetin Jose (Procrit (for non ESRD use)) 10,000 units MON-WED-WED SUBQ 08/11/17 21:00 09/10/17 20:59 08/11/17 21:32 Finasteride (Proscar) 5 mg DAILY ORAL 08/07/17 09:00 09/06/17 08:59 08/13/17 08:20 Heparin Sodium (Porcine) (Heparin 5000 units/ml) 5,000 units EVERY 12 HOURS SUBQ 08/07/17 09:00 09/06/17 08:59 08/13/17 08:18 Insulin Aspart (NovoLOG) BEFORE MEALS AND HS SUBQ 08/10/17 21:00 09/09/17 20:59 08/13/17 11:30 Insulin Aspart (NovoLOG) 5 units NOVOTIAC SUBQ 08/12/17 06:30 09/11/17 06:29 08/13/17 12:07 Insulin Detemir (Levemir) 10 units BID SUBQ 08/09/17 21:00 09/08/17 20:59 08/13/17 18:05 Metoprolol Tartrate (Lopressor) 50 mg Q12HR ORAL 08/07/17 21:00 09/06/17 20:59 08/13/17 08:20 Morphine Sulfate (Morphine Sulfate) 2 mg Q4H PRN IVP severe pain 7-10 08/06/17 22:45 08/13/17 22:44 Nitroglycerin (Ntg) 0.4 mg Q5M X 3 DOSES PRN SL Prn Chest Pain 08/06/17 22:45 09/05/17 22:44 Ondansetron HCl (Zofran) 4 mg Q6H PRN IVP Nausea & Vomiting 08/06/17 22:45 09/05/17 22:44 Pantoprazole (Protonix) 40 mg DAILY ORAL 08/09/17 16:30 09/08/17 16:29 08/13/17 08:20 Polyethylene Glycol (Miralax) 17 gm HSPRN PRN ORAL Constipation 08/06/17 22:45 09/05/17 22:44 Sevelamer Carbonate (Renvela) 800 mg TID@0800,1200,1700 ORAL 08/07/17 08:00 09/06/17 07:59 08/13/17 18:07 Sodium Chloride 1,000 ml @ 50 mls/hr Q20H IVLG 08/09/17 16:00 09/08/17 15:59 08/13/17 00:00 Sodium Citrate (Bicitra) 30 ml EVERY 6 HOURS ORAL 08/10/17 12:00 09/09/17 11:59 08/13/17 18:07 Tamsulosin HCl (Flomax) 0.4 mg Q12HR ORAL 08/07/17 21:00 09/06/17 20:59 08/13/17 08:20 Temazepam (Restoril) 15 mg HSPRN PRN ORAL Insomnia 08/06/17 22:45 08/13/17 22:44 Allergies: Coded Allergies: CEFEPIME (Verified Allergy, Intermediate, Rash, 01/23/13) ROS Limited/Unobtainable: No Constitutional: Reports: no symptoms HEENT: Reports: no symptoms Cardiovascular: Reports: no symptoms Respiratory: Reports: no symptoms Gastrointestinal/Abdominal: Reports: no symptoms Genitourinary: Reports: no symptoms Neurologic/Psychiatric: Reports: no symptoms Subjective 62 YO M admitted with hyperglycemia. Now sepsis. Cover for Int Med-Dr Rosado.. Fingerstick glucose more stable: 146-243. Await transesophageal echocardiogram Objective Last Vital Signs Date Time Temp Pulse Resp B/P (MAP) Pulse Ox O2 Delivery O2 Flow Rate FiO2 08/13/17 18:08 68 146/74 08/13/17 16:00 98.1 20 100 08/13/17 12:15 Room Air 08/12/17 18:46 21 Laboratory Tests Test 08/13/17 10:20 White Blood Count 6.5 K/UL (4.8-10.8) Red Blood Count 2.68 M/UL (4.70-6.10) L Hemoglobin 8.7 G/DL (14.2-18.0) L Hematocrit 26.8 % (42.0-52.0) L Mean Corpuscular Volume 100 FL (80-99) H Mean Corpuscular Hemoglobin 32.5 PG (27.0-31.0) H Mean Corpuscular Hemoglobin Concent 32.6 G/DL (32.0-36.0) Red Cell Distribution Width 14.8 % (11.6-14.8) Platelet Count 198 K/UL (150-450) Mean Platelet Volume 7.2 FL (6.5-10.1) Neutrophils (%) (Auto) 68.8 % (45.0-75.0) Lymphocytes (%) (Auto) 19.4 % (20.0-45.0) L Monocytes (%) (Auto) 7.4 % (1.0-10.0) Eosinophils (%) (Auto) 3.7 % (0.0-3.0) H Basophils (%) (Auto) 0.8 % (0.0-2.0) Sodium Level 145 MMOL/L (136-145) Potassium Level 4.3 MMOL/L (3.5-5.1) Chloride Level 113 MMOL/L (98-107) H Carbon Dioxide Level 23 MMOL/L (21-32) Anion Gap 9 mmol/L (5-15) Blood Urea Nitrogen 49 mg/dL (7-18) H Creatinine 3.9 MG/DL (0.55-1.30) H Estimat Glomerular Filtration Rate 15.7 mL/min (>60) Glucose Level 193 MG/DL (74-106) H Calcium Level 8.2 MG/DL (8.5-10.1) L Microbiology Date/Time Source Procedure Growth Status 08/11/17 13:05 Blood Blood Culture - Preliminary Resulted 08/11/17 13:00 Blood Blood Culture - Preliminary NO GROWTH AFTER 24 HOURS Resulted Intake and Output 08/12/17 08/13/17 19:00 07:00 Intake Total 360 ml 900 ml Output Total 900 ml Balance 360 ml 0 ml Intake Oral 360 ml 600 ml IV Total 300 ml Output Urine Total 900 ml # Voids 2 2 Objective General Appearance: WD/WN, no apparent distress, alert Neck: non-tender, normal alignment, supple Cardiovascular: normal peripheral pulses, normal rate, regular rhythm, no gallop/murmur, no JVD Respiratory/Chest: chest wall non-tender, lungs clear, normal breath sounds, no respiratory distress, no accessory muscle use Extremities: normal range of motion, non-tender Neurologic: no motor/sensory deficits Skin: normal pigmentation, warm/dry Assessment/Plan Problem List: (1) Acute hyperglycemia Assessment & Plan: ? secondaary to infection? See ID and endocrinology note. (2) Uncontrolled diabetes mellitus Assessment & Plan: Continue levemir and novolog sliding scale per endocrinology (3) Anemia (4) CKD (chronic kidney disease), stage III Assessment & Plan: See nephrology note. (5) Hyperglycemia due to type 2 diabetes mellitus (6) CAD (coronary artery disease) (7) HTN (hypertension) Assessment & Plan: Cont lopressor and norvasc. (8) Acute hyperglycemia (9) Gastritis (10) BPH (benign prostatic hyperplasia) (11) Hypercholesteremia (12) Sepsis Assessment & Plan: Staph epidermidis. See ID note. Replace PICC. Continue daptomycin day #7/14 or longer if 2nd blood culture positive per ID. Await Transesophageal echo per ID to R/O endocarditis. Status: not improved DEE MAHER Aug 13, 2017 19:22
[2017-08-13 20:00] VITALS: BP 145/77
[2017-08-13] MEDS: Epogen (for non ESRD use) SUBQ SCH (21:11)
--- NOTE | 2017-08-13 21:45 | Progress Note ---
DATE: 08/13/2017 SUBJECTIVE: The patient was found in bed, sleeping, arousable, pleasant, and cooperative. He has been compliant with medications. No behavior issues. Complained of anxiety. Sleep appetite is adequate. The patient does not endorse any suicidal or homicidal ideations. MENTAL STATUS EXAMINATION: The patient is alert and oriented times self, place, time, and situation. Cooperative and pleasant. Mood is normal. Affect is full range. Congruent with mood and appropriate. Thought process is linear. Thought content, no suicidal or homicidal ideations. No delusions. No auditory or visual hallucinations. Cognition is intact including memory, concentration, and attention. Insight and judgment is fair. ASSESSMENT: 1. Depression. 2. Schizophrenia by history. PLAN: 1. We will continue the Cymbalta. 2. We will continue to follow. 3. The patient is not an imminent danger to self or others and may be discharged if medically cleared. Fatmata Lu M.D. DR: PENELOPE JOB#: [id number] CC:
[2017-08-14] VITALS: BP 136/66
[2017-08-14] MEDS: Sodium Citrate 30ml ORAL SCH ×5 (00:16→23:55)
[2017-08-14 04:00] VITALS: BP 149/81
[2017-08-14] MEDS: NovoLOG Insulin Flexpen SUBQ SCH ×7 (06:02→20:55)
[2017-08-14 07:52] LABS: BASOPHILS % (AUTO) 0.8 % (0.0-2.0); HEMATOCRIT 25.5 % (42.0-52.0); HEMOGLOBIN 8.4 G/DL (14.2-18.0); LYMPHOCYTES % (AUTO) 24.2 % (20.0-45.0); MEAN CORPUSCULAR VOLUME 98 FL (80-99); MONOCYTES % (AUTO) 8.3 % (1.0-10.0); NEUTROPHILS % (AUTO) 61.8 % (45.0-75.0); PLATELET COUNT 200 K/UL (150-450); RED BLOOD COUNT 2.59 M/UL (4.70-6.10); RED CELL DISTRIBUTION WIDTH 14.5 % (11.6-14.8); WHITE BLOOD COUNT 6.5 K/UL (4.8-10.8)
[2017-08-14 08:00] VITALS: BP 144/88
[2017-08-14 08:13] LABS: ANION GAP 10 mmol/L (5-15); BLOOD UREA NITROGEN 49 mg/dL (7-18); CALCIUM 8.3 MG/DL (8.5-10.1); CARBON DIOXIDE 22 MMOL/L (21-32); CHLORIDE 113 MMOL/L (98-107); CREATININE 3.9 MG/DL (0.55-1.30); POTASSIUM 3.8 MMOL/L (3.5-5.1); SODIUM 145 MMOL/L (136-145)
[2017-08-14] MEDS: Renvela 800mg Pkt ORAL SCH ×3 (08:28→16:54)
[2017-08-14] MEDS: azaTHIOprine 50 MG TAB ORAL SCH (08:29)
[2017-08-14] MEDS: Docusate 100mg cap ORAL SCH ×3 (08:29→17:01)
[2017-08-14] MEDS: DULoxetine 30mg cap ORAL SCH (08:31)
[2017-08-14] MEDS: Tamsulosin 0.4mg cap ORAL SCH ×2 (08:31→20:53)
[2017-08-14] MEDS: Heparin 5000 units/ml inj SUBQ SCH ×2 (08:34→20:55)
[2017-08-14] MEDS: Levemir Flexpen SUBQ SCH ×2 (08:35→17:01)
[2017-08-14] MEDS: Metoprolol Tartrate 50mg tab ORAL SCH ×2 (08:37→20:53)
--- NOTE | 2017-08-14 08:54 | Pulmonology Progress Note ---
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 ) CKD st 3 DM OOC diabetic nephropathy anemia of chronic kidney disease Dehydration ( partially probably due to hyperglycemia) hyperkalemia MDD BPH PLAN OF CARE [facility] floor initial bl cx 4/4 + Stap epi Repeated +Staph epi last set bl cx 08/11 - prel negative cath tip PICC prel negative Abx ID follows ECHO no evidence of vegetation, consider TTE AMY pending to check for possible vegetatiob as a source of infection ID will specify duration of abx after AMY results, but minimum 4 weeks from david date of first negative blood cx Nephro follows renal US with no evidence of hydronephrosis Slow hydration monitor renal parameters, avoid nephrotoxic, correct lytes as needed BS management as per endo with Levemir, premeal Novolog and SS prn , [id number] continue Flomax, monitor HH, on EPO, transfused prn Psych follows, not a DTS or DTO, optimized psych med regimen DNR/DNI status case discussed and evaluated by supervising physician Subjective Allergies: Coded Allergies: CEFEPIME (Verified Allergy, Intermediate, Rash, 01/23/13) Subjective creat trending down afebrile, no leukocytosis on RA no signs of resp distress AMY pending to identify possible source of persistent bacteremia Objective Last 24 Hour Vital Signs Date Time Temp Pulse Resp B/P (MAP) Pulse Ox O2 Delivery O2 Flow Rate FiO2 08/14/17 08:37 74 144/84 08/14/17 08:30 73 144/88 08/14/17 04:00 98.2 66 20 149/81 99 Room Air 08/14/17 00:00 97.5 69 19 136/66 99 Room Air 08/13/17 21:06 85 145/77 08/13/17 20:00 97.5 85 19 145/77 100 Room Air 08/13/17 18:08 68 146/74 08/13/17 16:00 98.1 68 20 146/74 100 08/13/17 12:15 98.7 83 20 95/72 97 Room Air Intake and Output 08/13/17 08/14/17 19:00 07:00 Intake Total 170 ml 500 ml Output Total 1000 ml 450 ml Balance -830 ml 50 ml Intake Oral 120 ml IV Total 50 ml 500 ml Output Urine Total 1000 ml 450 ml # Voids 2 1 Objective General Appearance: no acute distress, other - awqake, alert, responsive HEENT: normocephalic, atraumatic, anicteric Respiratory/Chest: lungs clear, normal breath sounds, no respiratory distress Cardiovascular: normal peripheral pulses, normal rate Abdomen: normal bowel sounds, soft, non tender, non distended Neurologic/Psychiatric: alert, responsive Musculoskeletal: normal muscle bulk Microbiology Date/Time Source Procedure Growth Status 08/11/17 13:05 Blood Blood Culture - Preliminary Resulted 08/11/17 13:00 Blood Blood Culture - Preliminary Gram Positive Cocci Resulted Laboratory Tests 08/13/17 10:20: White Blood Count 6.5, Red Blood Count 2.68L, Hemoglobin 8.7L, Hematocrit 26.8L , Mean Corpuscular Volume 100H, Mean Corpuscular Hemoglobin 32.5H, Mean Corpuscular Hemoglobin Concent 32.6, Red Cell Distribution Width 14.8, Platelet Count 198, Mean Platelet Volume 7.2, Neutrophils (%) (Auto) 68.8, Lymphocytes (% ) (Auto) 19.4L, Monocytes (%) (Auto) 7.4, Eosinophils (%) (Auto) 3.7H, Basophils (%) (Auto) 0.8, Sodium Level 145, Potassium Level 4.3, Chloride Level 113H, Carbon Dioxide Level 23, Anion Gap 9, Blood Urea Nitrogen 49H, Creatinine 3.9H, Estimat Glomerular Filtration Rate 15.7, Glucose Level 193H, Calcium Level 8.2L 08/14/17 05:40: Sodium Level 145, Potassium Level 3.8, Chloride Level 113H, Carbon Dioxide Level 22, Anion Gap 10, Blood Urea Nitrogen 49H, Creatinine 3.9H, Estimat Glomerular Filtration Rate 15.7, Glucose Level 55#L, Calcium Level 8.3L 08/14/17 06:40: White Blood Count 6.5, Red Blood Count 2.59L, Hemoglobin 8.4L, Hematocrit 25.5L , Mean Corpuscular Volume 98, Mean Corpuscular Hemoglobin 32.4H, Mean Corpuscular Hemoglobin Concent 33.0, Red Cell Distribution Width 14.5, Platelet Count 200, Mean Platelet Volume 6.9, Neutrophils (%) (Auto) 61.8, Lymphocytes (% ) (Auto) 24.2, Monocytes (%) (Auto) 8.3, Eosinophils (%) (Auto) 5.0H, Basophils (%) (Auto) 0.8 Current Medications Medications (Trade) Dose Ordered Sig/Dunia Route PRN Reason Start Time Stop Time Status Last Admin Dose Admin Acetaminophen (Tylenol) 650 mg Q4H PRN ORAL fever 08/06/17 22:45 09/05/17 22:44 08/07/17 10:56 Amlodipine Besylate (Norvasc) 5 mg BID ORAL 08/09/17 18:00 09/06/17 08:59 08/14/17 08:30 Azathioprine (Imuran) 50 mg DAILY ORAL 08/07/17 09:00 09/06/17 08:59 08/14/17 08:29 Clonidine HCl (Catapres Tab) 0.1 mg Q4H PRN ORAL sbp more than 160 08/06/17 22:45 09/05/17 22:44 08/12/17 11:57 Daptomycin 500 mg/ Sodium Chloride 55 ml @ 110 mls/hr Q48H IV 08/07/17 14:00 08/14/17 13:59 08/13/17 14:53 Dextrose (Dextrose 50%) STAT PRN IV Hypoglycemia 08/08/17 09:00 09/07/17 08:59 08/10/17 18:27 Docusate Sodium (Colace) 100 mg TID ORAL 08/09/17 18:00 09/08/17 17:59 08/14/17 08:29 Duloxetine HCl (Cymbalta) 30 mg DAILY ORAL 08/07/17 09:00 09/06/17 08:59 08/14/17 08:31 Epoetin Jose (Procrit (for non ESRD use)) 10,000 units WED-WED-WED SUBQ 08/11/17 21:00 09/10/17 20:59 08/13/17 21:11 Finasteride (Proscar) 5 mg DAILY ORAL 08/07/17 09:00 09/06/17 08:59 08/14/17 08:31 Heparin Sodium (Porcine) (Heparin 5000 units/ml) 5,000 units EVERY 12 HOURS SUBQ 08/07/17 09:00 09/06/17 08:59 08/14/17 08:34 Insulin Aspart (NovoLOG) BEFORE MEALS AND HS SUBQ 08/10/17 21:00 09/09/17 20:59 08/13/17 21:10 Insulin Aspart (NovoLOG) 5 units NOVOTIAC SUBQ 08/12/17 06:30 09/11/17 06:29 08/14/17 06:04 Insulin Detemir (Levemir) 10 units BID SUBQ 08/09/17 21:00 09/08/17 20:59 08/14/17 08:35 Metoprolol Tartrate (Lopressor) 50 mg Q12HR ORAL 08/07/17 21:00 09/06/17 20:59 08/14/17 08:37 Nitroglycerin (Ntg) 0.4 mg Q5M X 3 DOSES PRN SL Prn Chest Pain 08/06/17 22:45 09/05/17 22:44 Ondansetron HCl (Zofran) 4 mg Q6H PRN IVP Nausea & Vomiting 08/06/17 22:45 09/05/17 22:44 Pantoprazole (Protonix) 40 mg DAILY ORAL 08/09/17 16:30 09/08/17 16:29 08/14/17 08:31 Polyethylene Glycol (Miralax) 17 gm HSPRN PRN ORAL Constipation 08/06/17 22:45 09/05/17 22:44 Sevelamer Carbonate (Renvela) 800 mg TID@0800,1200,1700 ORAL 08/07/17 08:00 09/06/17 07:59 08/14/17 08:28 Sodium Chloride 1,000 ml @ 50 mls/hr Q20H IVLG 08/09/17 16:00 09/08/17 15:59 08/13/17 21:06 Sodium Citrate (Bicitra) 30 ml EVERY 6 HOURS ORAL 08/10/17 12:00 09/09/17 11:59 08/14/17 06:03 Tamsulosin HCl (Flomax) 0.4 mg Q12HR ORAL 08/07/17 21:00 09/06/17 20:59 08/14/17 08:31 Catherine Griffin NP (Vanchtein) Aug 14, 2017 08:54
--- NOTE | 2017-08-14 10:49 | Infectious Diseases Prog Note ---
Assessment/Plan Assessment/Plan ASSESSMENT: The patient is a 62-year-old male with: Persistent Staph Epi bacteremia- initially suspected 2ry to infected PICC line, however patient persist bacteremic despite line removal, there for suspicion for occult source or endovascular source- r/o endocarditis -s/p PICC removal 08/09; cath cx NTD -08/06 Bcx 4/ Staph epi/MRSE (labeld peripheral), Bcx 08/07 NTD, 08/08 (line) 2/ 2 MRSE; 08/09 1/ GPC clusters (however line was still in place); Bcx 08/11 2/4 GPC clusters; 2/2 p -TTE: Thickened mitral valve leaflets with normal excursion. Mild mitral annulus and aortic root calcification. Pulmonic valve is well visualized. Normal tricuspid valve structure. No echodensity is seen on valves (vegetation) , consider AMY if clinically indicated. Low-grade fever/leukocytosis- resolved -u/a no pyuria, ucx 10-20k mixed gram positive -CXR no acute disease Uncontrolled diabetes, probably due to sepsis. 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 -History of renal and pancreas transplant about 10 years ago. 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 -07/15 E fecalis (Amp R, Vanco S) - History of suicidal attempts in the past. -. History of myocardial infarction. -. History of anemia. -. History of colon polyps. PLAN: -Continue daptomycin #8 for S. epi bacteremia; duration to follow pending AMY, but minimum of 4 weeks from 1st of neg bcx. -weekly CPK -08/09 SP Aztreonam #3 -AMY to eval for endocarditis -f/u repeat 2 sets of Bcx -Hold picc line placement until Bcx negative for 48-72hrs - Monitor CBC/BMP, temperatuers -aspiration precautions Thank you, Dr. Delgado, for allowing me to participate in the care of this patient. I will follow the patient with you during this hospitalization. Discussed with RN Subjective Allergies: Coded Allergies: CEFEPIME (Verified Allergy, Intermediate, Rash, 01/23/13) Subjective afebrile no leukocytosis repeat Bcx 08/11 (after line removal) are still +; Bcx 2/2 p Objective Vital Signs Last 24 Hour Vital Signs Date Time Temp Pulse Resp B/P (MAP) Pulse Ox O2 Delivery O2 Flow Rate FiO2 08/14/17 08:37 74 144/84 08/14/17 08:30 73 144/88 08/14/17 08:00 96.6 73 17 144/88 98 Room Air 08/14/17 04:00 98.2 66 20 149/81 99 Room Air 08/14/17 00:00 97.5 69 19 136/66 99 Room Air 08/13/17 21:06 85 145/77 08/13/17 20:00 97.5 85 19 145/77 100 Room Air 08/13/17 18:08 68 146/74 08/13/17 16:00 98.1 68 20 146/74 100 08/13/17 12:15 98.7 83 20 95/72 97 Room Air Height (Feet): 5 Height (Inches): 8.00 Weight (Pounds): 209 Objective HEENT: No pale conjunctivae. No icterus. CHEST: Clear. HEART: S1 and S2. ABDOMEN: Soft, obese, nontender. EXTREMITIES: picc line removed, no rash NEUROLOGIC: Awake and alert. SKIN: The patient has scattered scratch velasquez on the upper and lower extremities. Microbiology Date/Time Source Procedure Growth Status 08/11/17 13:05 Blood Blood Culture - Final Staphylococcus Sp Coag Neg Complete 08/11/17 13:00 Blood Blood Culture - Preliminary Gram Positive Cocci Resulted Laboratory Tests Test 08/14/17 05:40 08/14/17 06:40 Sodium Level 145 MMOL/L (136-145) Potassium Level 3.8 MMOL/L (3.5-5.1) Chloride Level 113 MMOL/L (98-107) H Carbon Dioxide Level 22 MMOL/L (21-32) Anion Gap 10 mmol/L (5-15) Blood Urea Nitrogen 49 mg/dL (7-18) H Creatinine 3.9 MG/DL (0.55-1.30) H Estimat Glomerular Filtration Rate 15.7 mL/min (>60) Glucose Level 55 MG/DL (74-106) #L Calcium Level 8.3 MG/DL (8.5-10.1) L White Blood Count 6.5 K/UL (4.8-10.8) Red Blood Count 2.59 M/UL (4.70-6.10) L Hemoglobin 8.4 G/DL (14.2-18.0) L Hematocrit 25.5 % (42.0-52.0) L Mean Corpuscular Volume 98 FL (80-99) Mean Corpuscular Hemoglobin 32.4 PG (27.0-31.0) H Mean Corpuscular Hemoglobin Concent 33.0 G/DL (32.0-36.0) Red Cell Distribution Width 14.5 % (11.6-14.8) Platelet Count 200 K/UL (150-450) Mean Platelet Volume 6.9 FL (6.5-10.1) Neutrophils (%) (Auto) 61.8 % (45.0-75.0) Lymphocytes (%) (Auto) 24.2 % (20.0-45.0) Monocytes (%) (Auto) 8.3 % (1.0-10.0) Eosinophils (%) (Auto) 5.0 % (0.0-3.0) H Basophils (%) (Auto) 0.8 % (0.0-2.0) Current Medications Medications (Trade) Dose Ordered Sig/Dunia Route PRN Reason Start Time Stop Time Status Last Admin Dose Admin Acetaminophen (Tylenol) 650 mg Q4H PRN ORAL fever 08/06/17 22:45 09/05/17 22:44 08/07/17 10:56 Amlodipine Besylate (Norvasc) 5 mg BID ORAL 08/09/17 18:00 09/06/17 08:59 08/14/17 08:30 Azathioprine (Imuran) 50 mg DAILY ORAL 08/07/17 09:00 09/06/17 08:59 08/14/17 08:29 Clonidine HCl (Catapres Tab) 0.1 mg Q4H PRN ORAL sbp more than 160 08/06/17 22:45 09/05/17 22:44 08/12/17 11:57 Daptomycin 500 mg/ Sodium Chloride 55 ml @ 110 mls/hr Q48H IV 08/07/17 14:00 08/14/17 13:59 08/13/17 14:53 Dextrose (Dextrose 50%) STAT PRN IV Hypoglycemia 08/08/17 09:00 09/07/17 08:59 08/10/17 18:27 Docusate Sodium (Colace) 100 mg TID ORAL 08/09/17 18:00 09/08/17 17:59 08/14/17 08:29 Duloxetine HCl (Cymbalta) 30 mg DAILY ORAL 08/07/17 09:00 09/06/17 08:59 08/14/17 08:31 Epoetin Jose (Procrit (for non ESRD use)) 10,000 units WED-WED-WED SUBQ 08/11/17 21:00 09/10/17 20:59 08/13/17 21:11 Finasteride (Proscar) 5 mg DAILY ORAL 08/07/17 09:00 09/06/17 08:59 08/14/17 08:31 Heparin Sodium (Porcine) (Heparin 5000 units/ml) 5,000 units EVERY 12 HOURS SUBQ 08/07/17 09:00 09/06/17 08:59 08/14/17 08:34 Insulin Aspart (NovoLOG) BEFORE MEALS AND HS SUBQ 08/10/17 21:00 09/09/17 20:59 08/13/17 21:10 Insulin Aspart (NovoLOG) 5 units NOVOTIAC SUBQ 08/12/17 06:30 09/11/17 06:29 08/14/17 06:04 Insulin Detemir (Levemir) 10 units BID SUBQ 08/09/17 21:00 09/08/17 20:59 08/14/17 08:35 Metoprolol Tartrate (Lopressor) 50 mg Q12HR ORAL 08/07/17 21:00 09/06/17 20:59 08/14/17 08:37 Nitroglycerin (Ntg) 0.4 mg Q5M X 3 DOSES PRN SL Prn Chest Pain 08/06/17 22:45 09/05/17 22:44 Ondansetron HCl (Zofran) 4 mg Q6H PRN IVP Nausea & Vomiting 08/06/17 22:45 09/05/17 22:44 Pantoprazole (Protonix) 40 mg DAILY ORAL 08/09/17 16:30 09/08/17 16:29 08/14/17 08:31 Polyethylene Glycol (Miralax) 17 gm HSPRN PRN ORAL Constipation 08/06/17 22:45 09/05/17 22:44 Sevelamer Carbonate (Renvela) 800 mg TID@0800,1200,1700 ORAL 08/07/17 08:00 09/06/17 07:59 08/14/17 08:28 Sodium Chloride 1,000 ml @ 50 mls/hr Q20H IVLG 08/09/17 16:00 09/08/17 15:59 08/13/17 21:06 Sodium Citrate (Bicitra) 30 ml EVERY 6 HOURS ORAL 08/10/17 12:00 09/09/17 11:59 08/14/17 06:03 Tamsulosin HCl (Flomax) 0.4 mg Q12HR ORAL 08/07/17 21:00 09/06/17 20:59 08/14/17 08:31 Monique Read M.D. Aug 14, 2017 10:49
--- NOTE | 2017-08-14 11:29 | Nephrology Progress Note ---
Assessment/Plan Problem List: (1) CKD (chronic kidney disease), stage III (2) DM (diabetes mellitus) (3) Anemia (4) HTN (hypertension) (5) CAD (coronary artery disease) (6) Pulmonary HTN Plan follow BMP on Epogen watch BP cont Abxs Subjective Subjective feels ok Objective Objective Last 24 Hour Vital Signs Date Time Temp Pulse Resp B/P (MAP) Pulse Ox O2 Delivery O2 Flow Rate FiO2 08/14/17 08:37 74 144/84 08/14/17 08:30 73 144/88 08/14/17 08:00 96.6 73 17 144/88 98 Room Air 08/14/17 04:00 98.2 66 20 149/81 99 Room Air 08/14/17 00:00 97.5 69 19 136/66 99 Room Air 08/13/17 21:06 85 145/77 08/13/17 20:00 97.5 85 19 145/77 100 Room Air 08/13/17 18:08 68 146/74 08/13/17 16:00 98.1 68 20 146/74 100 08/13/17 12:15 98.7 83 20 95/72 97 Room Air Intake and Output 08/13/17 08/14/17 19:00 07:00 Intake Total 170 ml 500 ml Output Total 1000 ml 450 ml Balance -830 ml 50 ml Intake Oral 120 ml IV Total 50 ml 500 ml Output Urine Total 1000 ml 450 ml # Voids 2 1 Laboratory Tests 08/14/17 05:40: Sodium Level 145, Potassium Level 3.8, Chloride Level 113H, Carbon Dioxide Level 22, Anion Gap 10, Blood Urea Nitrogen 49H, Creatinine 3.9H, Estimat Glomerular Filtration Rate 15.7, Glucose Level 55#L, Calcium Level 8.3L 08/14/17 06:40: White Blood Count 6.5, Red Blood Count 2.59L, Hemoglobin 8.4L, Hematocrit 25.5L , Mean Corpuscular Volume 98, Mean Corpuscular Hemoglobin 32.4H, Mean Corpuscular Hemoglobin Concent 33.0, Red Cell Distribution Width 14.5, Platelet Count 200, Mean Platelet Volume 6.9, Neutrophils (%) (Auto) 61.8, Lymphocytes (% ) (Auto) 24.2, Monocytes (%) (Auto) 8.3, Eosinophils (%) (Auto) 5.0H, Basophils (%) (Auto) 0.8 Height (Feet): 5 Height (Inches): 8.00 Weight (Pounds): 209 Cardiovascular: normal rate Respiratory/Chest: lungs clear Extremities: moderate edema SIMI HAN Aug 14, 2017 11:29
[2017-08-14 12:00] VITALS: BP 151/86
--- NOTE | 2017-08-14 14:53 | Internal Med Progress Note ---
Subjective Date of Service: Aug 14, 2017 Physician Name Dee Maher Attending Physician Christopher Rosado MD Current Medications Medications (Trade) Dose Ordered Sig/Dunia Route PRN Reason Start Time Stop Time Status Last Admin Dose Admin Acetaminophen (Tylenol) 650 mg Q4H PRN ORAL fever 08/06/17 22:45 09/05/17 22:44 08/07/17 10:56 Amlodipine Besylate (Norvasc) 5 mg BID ORAL 08/09/17 18:00 09/06/17 08:59 08/14/17 08:30 Azathioprine (Imuran) 50 mg DAILY ORAL 08/07/17 09:00 09/06/17 08:59 08/14/17 08:29 Clonidine HCl (Catapres Tab) 0.1 mg Q4H PRN ORAL sbp more than 160 08/06/17 22:45 09/05/17 22:44 08/12/17 11:57 Dextrose (Dextrose 50%) STAT PRN IV Hypoglycemia 08/08/17 09:00 09/07/17 08:59 08/10/17 18:27 Docusate Sodium (Colace) 100 mg TID ORAL 08/09/17 18:00 09/08/17 17:59 08/14/17 11:47 Duloxetine HCl (Cymbalta) 30 mg DAILY ORAL 08/07/17 09:00 09/06/17 08:59 08/14/17 08:31 Epoetin Jose (Procrit (for non ESRD use)) 10,000 units MON-WED-WED SUBQ 08/11/17 21:00 09/10/17 20:59 08/13/17 21:11 Finasteride (Proscar) 5 mg DAILY ORAL 08/07/17 09:00 09/06/17 08:59 08/14/17 08:31 Heparin Sodium (Porcine) (Heparin 5000 units/ml) 5,000 units EVERY 12 HOURS SUBQ 08/07/17 09:00 09/06/17 08:59 08/14/17 08:34 Insulin Aspart (NovoLOG) BEFORE MEALS AND HS SUBQ 08/10/17 21:00 09/09/17 20:59 08/14/17 11:22 Insulin Aspart (NovoLOG) 5 units NOVOTIAC SUBQ 08/12/17 06:30 09/11/17 06:29 08/14/17 11:42 Insulin Detemir (Levemir) 10 units BID SUBQ 08/09/17 21:00 09/08/17 20:59 08/14/17 08:35 Metoprolol Tartrate (Lopressor) 50 mg Q12HR ORAL 08/07/17 21:00 09/06/17 20:59 08/14/17 08:37 Nitroglycerin (Ntg) 0.4 mg Q5M X 3 DOSES PRN SL Prn Chest Pain 08/06/17 22:45 09/05/17 22:44 Ondansetron HCl (Zofran) 4 mg Q6H PRN IVP Nausea & Vomiting 08/06/17 22:45 09/05/17 22:44 Pantoprazole (Protonix) 40 mg DAILY ORAL 08/09/17 16:30 09/08/17 16:29 08/14/17 08:31 Polyethylene Glycol (Miralax) 17 gm HSPRN PRN ORAL Constipation 08/06/17 22:45 09/05/17 22:44 Sevelamer Carbonate (Renvela) 800 mg TID@0800,1200,1700 ORAL 08/07/17 08:00 09/06/17 07:59 08/14/17 11:47 Sodium Chloride 1,000 ml @ 50 mls/hr Q20H IVLG 08/09/17 16:00 09/08/17 15:59 08/13/17 21:06 Sodium Citrate (Bicitra) 30 ml EVERY 6 HOURS ORAL 08/10/17 12:00 09/09/17 11:59 08/14/17 11:47 Tamsulosin HCl (Flomax) 0.4 mg Q12HR ORAL 08/07/17 21:00 09/06/17 20:59 08/14/17 08:31 Allergies: Coded Allergies: CEFEPIME (Verified Allergy, Intermediate, Rash, 01/23/13) ROS Limited/Unobtainable: No Constitutional: Reports: no symptoms HEENT: Reports: no symptoms Cardiovascular: Reports: no symptoms Respiratory: Reports: no symptoms Gastrointestinal/Abdominal: Reports: no symptoms Genitourinary: Reports: no symptoms Neurologic/Psychiatric: Reports: no symptoms Subjective 62 YO M admitted with hyperglycemia. Now sepsis. Cover for Int Med-Dr Rosado.. Fingerstick glucose more stable: 146-243. Await transesophageal echocardiogram Objective Last Vital Signs Date Time Temp Pulse Resp B/P (MAP) Pulse Ox O2 Delivery O2 Flow Rate FiO2 08/14/17 12:00 97.7 84 19 151/86 100 Room Air 08/12/17 18:46 21 Laboratory Tests Test 08/14/17 05:40 08/14/17 06:40 Sodium Level 145 MMOL/L (136-145) Potassium Level 3.8 MMOL/L (3.5-5.1) Chloride Level 113 MMOL/L (98-107) H Carbon Dioxide Level 22 MMOL/L (21-32) Anion Gap 10 mmol/L (5-15) Blood Urea Nitrogen 49 mg/dL (7-18) H Creatinine 3.9 MG/DL (0.55-1.30) H Estimat Glomerular Filtration Rate 15.7 mL/min (>60) Glucose Level 55 MG/DL (74-106) #L Calcium Level 8.3 MG/DL (8.5-10.1) L White Blood Count 6.5 K/UL (4.8-10.8) Red Blood Count 2.59 M/UL (4.70-6.10) L Hemoglobin 8.4 G/DL (14.2-18.0) L Hematocrit 25.5 % (42.0-52.0) L Mean Corpuscular Volume 98 FL (80-99) Mean Corpuscular Hemoglobin 32.4 PG (27.0-31.0) H Mean Corpuscular Hemoglobin Concent 33.0 G/DL (32.0-36.0) Red Cell Distribution Width 14.5 % (11.6-14.8) Platelet Count 200 K/UL (150-450) Mean Platelet Volume 6.9 FL (6.5-10.1) Neutrophils (%) (Auto) 61.8 % (45.0-75.0) Lymphocytes (%) (Auto) 24.2 % (20.0-45.0) Monocytes (%) (Auto) 8.3 % (1.0-10.0) Eosinophils (%) (Auto) 5.0 % (0.0-3.0) H Basophils (%) (Auto) 0.8 % (0.0-2.0) Intake and Output 08/13/17 08/14/17 19:00 07:00 Intake Total 170 ml 500 ml Output Total 1000 ml 450 ml Balance -830 ml 50 ml Intake Oral 120 ml IV Total 50 ml 500 ml Output Urine Total 1000 ml 450 ml # Voids 2 1 Objective General Appearance: WD/WN, no apparent distress, alert Neck: non-tender, normal alignment, supple Cardiovascular: normal peripheral pulses, normal rate, regular rhythm, no gallop/murmur, no JVD Respiratory/Chest: chest wall non-tender, lungs clear, normal breath sounds, no respiratory distress, no accessory muscle use Extremities: normal range of motion, non-tender Neurologic: no motor/sensory deficits Skin: normal pigmentation, warm/dry Assessment/Plan Problem List: (1) Acute hyperglycemia Assessment & Plan: ? secondaary to infection? See ID and endocrinology note. (2) Uncontrolled diabetes mellitus Assessment & Plan: Continue levemir and novolog sliding scale per endocrinology (3) Anemia (4) CKD (chronic kidney disease), stage III Assessment & Plan: See nephrology note. (5) Hyperglycemia due to type 2 diabetes mellitus (6) CAD (coronary artery disease) (7) HTN (hypertension) Assessment & Plan: Cont lopressor and norvasc. (8) Acute hyperglycemia (9) Gastritis (10) BPH (benign prostatic hyperplasia) (11) Hypercholesteremia (12) Sepsis Assessment & Plan: Staph epidermidis. See ID note. Replace PICC. Continue daptomycin day #7/14 or longer if 2nd blood culture positive per ID. Await Transesophageal echo per ID to R/O endocarditis. Status: stable DEE MAHER Aug 14, 2017 14:53
[2017-08-14] MEDS ORDERED: Morphine Sulfate 2mg/ml Inj IVP PRN (15:45)
[2017-08-14 16:10] VITALS: BP 147/78
[2017-08-14 20:00] VITALS: BP 151/78
[2017-08-15] VITALS: BP 132/72
[2017-08-15 04:00] VITALS: BP 152/81
[2017-08-15] MEDS: NovoLOG Insulin Flexpen SUBQ SCH ×7 (06:00→21:46)
[2017-08-15] MEDS: Sodium Citrate 30ml ORAL SCH ×4 (06:00→21:44)
[2017-08-15 08:15] VITALS: BP 155/87
[2017-08-15 08:19] LABS: BASOPHILS % (AUTO) 0.6 % (0.0-2.0); EOSINOPHILS % (AUTO) 2.7 % (0.0-3.0); HEMATOCRIT 26.3 % (42.0-52.0); HEMOGLOBIN 8.5 G/DL (14.2-18.0); LYMPHOCYTES % (AUTO) 21.1 % (20.0-45.0); MEAN CORPUSCULAR VOLUME 100 FL (80-99); MONOCYTES % (AUTO) 9.1 % (1.0-10.0); NEUTROPHILS % (AUTO) 66.5 % (45.0-75.0); PLATELET COUNT 214 K/UL (150-450); RED BLOOD COUNT 2.63 M/UL (4.70-6.10); RED CELL DISTRIBUTION WIDTH 15.5 % (11.6-14.8); WHITE BLOOD COUNT 6.7 K/UL (4.8-10.8)
[2017-08-15] MEDS: Tamsulosin 0.4mg cap ORAL SCH ×2 (08:33→21:44)
[2017-08-15] MEDS: azaTHIOprine 50 MG TAB ORAL SCH (08:33)
[2017-08-15] MEDS: DULoxetine 30mg cap ORAL SCH (08:33)
[2017-08-15] MEDS: Renvela 800mg Pkt ORAL SCH ×3 (08:33→17:44)
[2017-08-15] MEDS: Metoprolol Tartrate 50mg tab ORAL SCH ×2 (08:34→21:44)
[2017-08-15] MEDS: Docusate 100mg cap ORAL SCH ×3 (08:34→17:45)
[2017-08-15] MEDS: Heparin 5000 units/ml inj SUBQ SCH ×2 (08:39→21:00)
[2017-08-15 08:42] LABS: ANION GAP 10 mmol/L (5-15); BLOOD UREA NITROGEN 50 mg/dL (7-18); CALCIUM 8.6 MG/DL (8.5-10.1); CARBON DIOXIDE 21 MMOL/L (21-32); CHLORIDE 108 MMOL/L (98-107); POTASSIUM 4.3 MMOL/L (3.5-5.1); SODIUM 139 MMOL/L (136-145)
[2017-08-15] MEDS: Levemir Flexpen SUBQ SCH ×2 (08:42→17:52)
--- NOTE | 2017-08-15 11:03 | Nephrology Progress Note ---
Assessment/Plan Problem List: (1) CKD (chronic kidney disease), stage III Assessment: renal function stable (2) DM (diabetes mellitus) (3) Anemia (4) HTN (hypertension) (5) CAD (coronary artery disease) (6) Pulmonary HTN Plan follow BMP on Epogen watch BP cont Abxs Subjective Subjective feels ok Objective Objective Last 24 Hour Vital Signs Date Time Temp Pulse Resp B/P (MAP) Pulse Ox O2 Delivery O2 Flow Rate FiO2 08/15/17 08:34 99 155/76 08/15/17 08:33 155 87/99 08/15/17 08:15 97.7 99 20 155/87 99 Room Air 08/15/17 04:00 97.7 75 20 152/81 99 08/15/17 00:00 97.9 79 21 132/72 98 08/14/17 20:53 85 151/78 08/14/17 20:00 98.8 85 21 151/78 98 08/14/17 16:55 89 147/78 08/14/17 16:10 97.8 89 18 147/78 Room Air 08/14/17 12:00 97.7 84 19 151/86 100 Room Air Intake and Output 08/14/17 08/15/17 19:00 07:00 Intake Total 1190 ml 550 ml Output Total 2100 ml 400 ml Balance -910 ml 150 ml Intake Oral 1140 ml IV Total 50 ml 550 ml Output Urine Total 2100 ml 400 ml # Voids 4 2 Laboratory Tests 08/15/17 06:30: White Blood Count 6.7, Red Blood Count 2.63L, Hemoglobin 8.5L, Hematocrit 26.3L , Mean Corpuscular Volume 100H, Mean Corpuscular Hemoglobin 32.4H, Mean Corpuscular Hemoglobin Concent 32.5, Red Cell Distribution Width 15.5H, Platelet Count 214, Mean Platelet Volume 6.6, Neutrophils (%) (Auto) 66.5, Lymphocytes (%) (Auto) 21.1, Monocytes (%) (Auto) 9.1, Eosinophils (%) (Auto) 2.7, Basophils (%) (Auto) 0.6 08/15/17 06:50: Sodium Level 139, Potassium Level 4.3, Chloride Level 108H, Carbon Dioxide Level 21, Anion Gap 10, Blood Urea Nitrogen 50H, Creatinine 4.0H, Estimat Glomerular Filtration Rate 15.2, Glucose Level 222#H, Calcium Level 8.6 Height (Feet): 5 Height (Inches): 8.00 Weight (Pounds): 209 Cardiovascular: normal rate Respiratory/Chest: lungs clear Extremities: moderate edema SIMI HAN Aug 15, 2017 11:03
[2017-08-15 12:15] VITALS: BP 162/84
--- NOTE | 2017-08-15 13:02 | Pulmonology Progress Note ---
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 ) CKD st 3 DM OOC diabetic nephropathy anemia of chronic kidney disease Dehydration ( partially probably due to hyperglycemia) hyperkalemia MDD BPH PLAN OF CARE [facility] floor initial bl cx / + Stap epi Repeated +Staph epi and then 08/11-+GPC and SCON only last set bl cx 2/2 - prel negative cath tip PICC + SCON Abx ID follows ECHO no evidence of vegetation, consider TTE AMY pending to check for possible vegetatiob as a source of infection ID will specify duration of abx after AMY results, but minimum 4 weeks from david date of first negative blood cx Nephro follows renal US with no evidence of hydronephrosis Slow hydration monitor renal parameters, avoid nephrotoxic, correct lytes as needed BS management as per endo with Levemir, premeal Novolog and SS prn , [id number] continue Flomax, monitor HH, on EPO, transfused prn Psych follows, not a DTS or DTO, optimized psych med regimen DNR/DNI status case discussed and evaluated by supervising physician Subjective Allergies: Coded Allergies: CEFEPIME (Verified Allergy, Intermediate, Rash, 01/23/13) Subjective waiting for AMY creat trending down afebrile, no leukocytosis on RA no signs of resp distress Objective Last 24 Hour Vital Signs Date Time Temp Pulse Resp B/P (MAP) Pulse Ox O2 Delivery O2 Flow Rate FiO2 08/15/17 12:15 97.4 78 21 162/84 97 Room Air 08/15/17 08:34 99 155/76 08/15/17 08:33 155 87/99 08/15/17 08:15 97.7 99 20 155/87 99 Room Air 08/15/17 04:00 97.7 75 20 152/81 99 08/15/17 00:00 97.9 79 21 132/72 98 08/14/17 20:53 85 151/78 08/14/17 20:00 98.8 85 21 151/78 98 08/14/17 16:55 89 147/78 08/14/17 16:10 97.8 89 18 147/78 Room Air Intake and Output 08/14/17 08/15/17 19:00 07:00 Intake Total 1190 ml 550 ml Output Total 2100 ml 400 ml Balance -910 ml 150 ml Intake Oral 1140 ml IV Total 50 ml 550 ml Output Urine Total 2100 ml 400 ml # Voids 4 2 Objective General Appearance: no acute distress, other - awqake, alert, responsive HEENT: normocephalic, atraumatic, anicteric Respiratory/Chest: lungs clear, normal breath sounds, no respiratory distress Cardiovascular: normal peripheral pulses, normal rate Abdomen: normal bowel sounds, soft, non tender, non distended Neurologic/Psychiatric: alert, responsive Musculoskeletal: normal muscle bulk Microbiology Date/Time Source Procedure Growth Status 08/13/17 15:19 Blood Blood Culture - Preliminary NO GROWTH AFTER 24 HOURS Resulted 08/13/17 15:15 Blood Blood Culture - Preliminary NO GROWTH AFTER 24 HOURS Resulted Laboratory Tests 08/15/17 06:30: White Blood Count 6.7, Red Blood Count 2.63L, Hemoglobin 8.5L, Hematocrit 26.3L , Mean Corpuscular Volume 100H, Mean Corpuscular Hemoglobin 32.4H, Mean Corpuscular Hemoglobin Concent 32.5, Red Cell Distribution Width 15.5H, Platelet Count 214, Mean Platelet Volume 6.6, Neutrophils (%) (Auto) 66.5, Lymphocytes (%) (Auto) 21.1, Monocytes (%) (Auto) 9.1, Eosinophils (%) (Auto) 2.7, Basophils (%) (Auto) 0.6 08/15/17 06:50: Sodium Level 139, Potassium Level 4.3, Chloride Level 108H, Carbon Dioxide Level 21, Anion Gap 10, Blood Urea Nitrogen 50H, Creatinine 4.0H, Estimat Glomerular Filtration Rate 15.2, Glucose Level 222#H, Calcium Level 8.6 Current Medications Medications (Trade) Dose Ordered Sig/Dunia Route PRN Reason Start Time Stop Time Status Last Admin Dose Admin Acetaminophen (Tylenol) 650 mg Q4H PRN ORAL fever 08/06/17 22:45 09/05/17 22:44 08/07/17 10:56 Amlodipine Besylate (Norvasc) 5 mg BID ORAL 08/09/17 18:00 09/06/17 08:59 08/15/17 08:33 Azathioprine (Imuran) 50 mg DAILY ORAL 08/07/17 09:00 09/06/17 08:59 08/15/17 08:33 Clonidine HCl (Catapres Tab) 0.1 mg Q4H PRN ORAL sbp more than 160 08/06/17 22:45 09/05/17 22:44 08/12/17 11:57 Daptomycin 500 mg/ Sodium Chloride 55 ml @ 110 mls/hr Q48H IV 08/15/17 14:00 08/22/17 13:59 Dextrose (Dextrose 50%) STAT PRN IV Hypoglycemia 08/08/17 09:00 09/07/17 08:59 08/10/17 18:27 Docusate Sodium (Colace) 100 mg TID ORAL 08/09/17 18:00 09/08/17 17:59 08/15/17 12:28 Duloxetine HCl (Cymbalta) 30 mg DAILY ORAL 08/07/17 09:00 09/06/17 08:59 08/15/17 08:33 Epoetin Jose (Procrit (for non ESRD use)) 10,000 units WED-WED-WED SUBQ 08/11/17 21:00 09/10/17 20:59 08/13/17 21:11 Finasteride (Proscar) 5 mg DAILY ORAL 08/07/17 09:00 09/06/17 08:59 08/15/17 08:34 Heparin Sodium (Porcine) (Heparin 5000 units/ml) 5,000 units EVERY 12 HOURS SUBQ 08/07/17 09:00 09/06/17 08:59 08/15/17 08:39 Insulin Aspart (NovoLOG) BEFORE MEALS AND HS SUBQ 08/10/17 21:00 09/09/17 20:59 08/15/17 12:31 Insulin Aspart (NovoLOG) 5 units NOVOTIAC SUBQ 08/12/17 06:30 09/11/17 06:29 08/15/17 12:32 Insulin Detemir (Levemir) 10 units BID SUBQ 08/09/17 21:00 09/08/17 20:59 08/15/17 08:42 Metoprolol Tartrate (Lopressor) 50 mg Q12HR ORAL 08/07/17 21:00 09/06/17 20:59 08/15/17 08:34 Morphine Sulfate (Morphine Sulfate) 2 mg Q4H PRN IVP For Pain 08/14/17 15:45 08/21/17 15:44 Nitroglycerin (Ntg) 0.4 mg Q5M X 3 DOSES PRN SL Prn Chest Pain 08/06/17 22:45 09/05/17 22:44 Ondansetron HCl (Zofran) 4 mg Q6H PRN IVP Nausea & Vomiting 08/06/17 22:45 09/05/17 22:44 Pantoprazole (Protonix) 40 mg DAILY ORAL 08/09/17 16:30 09/08/17 16:29 08/15/17 08:33 Polyethylene Glycol (Miralax) 17 gm HSPRN PRN ORAL Constipation 08/06/17 22:45 09/05/17 22:44 Sevelamer Carbonate (Renvela) 800 mg TID@0800,1200,1700 ORAL 08/07/17 08:00 09/06/17 07:59 08/15/17 12:27 Sodium Chloride 1,000 ml @ 50 mls/hr Q20H IVLG 08/09/17 16:00 09/08/17 15:59 08/15/17 12:28 Sodium Citrate (Bicitra) 30 ml EVERY 6 HOURS ORAL 08/10/17 12:00 09/09/17 11:59 08/15/17 12:27 Tamsulosin HCl (Flomax) 0.4 mg Q12HR ORAL 08/07/17 21:00 09/06/17 20:59 08/15/17 08:33 Temazepam (Restoril) 15 mg HSPRN PRN ORAL Insomnia 08/14/17 15:45 08/21/17 15:44 Catherine Griffin NP (Vanchtein) Aug 15, 2017 13:02
[2017-08-15] MEDS: DAPTOmycin 500 MG in NS 55 ML IV SCH (15:27)
[2017-08-15 15:59] VITALS: BP 139/64
--- NOTE | 2017-08-15 16:00 | Internal Med Progress Note ---
Subjective Date of Service: Aug 15, 2017 Physician Name Dee Maher Attending Physician Christopher Rosado MD Current Medications Medications (Trade) Dose Ordered Sig/Dunia Route PRN Reason Start Time Stop Time Status Last Admin Dose Admin Acetaminophen (Tylenol) 650 mg Q4H PRN ORAL fever 08/06/17 22:45 09/05/17 22:44 08/07/17 10:56 Amlodipine Besylate (Norvasc) 5 mg BID ORAL 08/09/17 18:00 09/06/17 08:59 08/15/17 08:33 Azathioprine (Imuran) 50 mg DAILY ORAL 08/07/17 09:00 09/06/17 08:59 08/15/17 08:33 Clonidine HCl (Catapres Tab) 0.1 mg Q4H PRN ORAL sbp more than 160 08/06/17 22:45 09/05/17 22:44 08/12/17 11:57 Daptomycin 500 mg/ Sodium Chloride 55 ml @ 110 mls/hr Q48H IV 08/15/17 14:00 08/22/17 13:59 08/15/17 15:27 Dextrose (Dextrose 50%) STAT PRN IV Hypoglycemia 08/08/17 09:00 09/07/17 08:59 08/10/17 18:27 Docusate Sodium (Colace) 100 mg TID ORAL 08/09/17 18:00 09/08/17 17:59 08/15/17 12:28 Duloxetine HCl (Cymbalta) 30 mg DAILY ORAL 08/07/17 09:00 09/06/17 08:59 08/15/17 08:33 Epoetin Jose (Procrit (for non ESRD use)) 10,000 units WED-WED-WED SUBQ 08/11/17 21:00 09/10/17 20:59 08/13/17 21:11 Finasteride (Proscar) 5 mg DAILY ORAL 08/07/17 09:00 09/06/17 08:59 08/15/17 08:34 Heparin Sodium (Porcine) (Heparin 5000 units/ml) 5,000 units EVERY 12 HOURS SUBQ 08/07/17 09:00 09/06/17 08:59 08/15/17 08:39 Insulin Aspart (NovoLOG) BEFORE MEALS AND HS SUBQ 08/10/17 21:00 09/09/17 20:59 08/15/17 12:31 Insulin Aspart (NovoLOG) 5 units NOVOTIAC SUBQ 08/12/17 06:30 09/11/17 06:29 08/15/17 12:32 Insulin Detemir (Levemir) 10 units BID SUBQ 08/09/17 21:00 09/08/17 20:59 08/15/17 08:42 Metoprolol Tartrate (Lopressor) 50 mg Q12HR ORAL 08/07/17 21:00 09/06/17 20:59 08/15/17 08:34 Morphine Sulfate (Morphine Sulfate) 2 mg Q4H PRN IVP For Pain 08/14/17 15:45 08/21/17 15:44 Nitroglycerin (Ntg) 0.4 mg Q5M X 3 DOSES PRN SL Prn Chest Pain 08/06/17 22:45 09/05/17 22:44 Ondansetron HCl (Zofran) 4 mg Q6H PRN IVP Nausea & Vomiting 08/06/17 22:45 09/05/17 22:44 Pantoprazole (Protonix) 40 mg DAILY ORAL 08/09/17 16:30 09/08/17 16:29 08/15/17 08:33 Polyethylene Glycol (Miralax) 17 gm HSPRN PRN ORAL Constipation 08/06/17 22:45 09/05/17 22:44 Sevelamer Carbonate (Renvela) 800 mg TID@0800,1200,1700 ORAL 08/07/17 08:00 09/06/17 07:59 08/15/17 12:27 Sodium Chloride 1,000 ml @ 50 mls/hr Q20H IVLG 08/09/17 16:00 09/08/17 15:59 08/15/17 12:28 Sodium Citrate (Bicitra) 30 ml EVERY 6 HOURS ORAL 08/10/17 12:00 09/09/17 11:59 08/15/17 12:27 Tamsulosin HCl (Flomax) 0.4 mg Q12HR ORAL 08/07/17 21:00 09/06/17 20:59 08/15/17 08:33 Temazepam (Restoril) 15 mg HSPRN PRN ORAL Insomnia 08/14/17 15:45 08/21/17 15:44 Allergies: Coded Allergies: CEFEPIME (Verified Allergy, Intermediate, Rash, 01/23/13) ROS Limited/Unobtainable: No Constitutional: Reports: no symptoms HEENT: Reports: no symptoms Cardiovascular: Reports: no symptoms Respiratory: Reports: no symptoms Gastrointestinal/Abdominal: Reports: no symptoms Genitourinary: Reports: no symptoms Neurologic/Psychiatric: Reports: no symptoms Subjective 62 YO M admitted with hyperglycemia. Now sepsis. Cover for Int Med-Dr Rosado.. Fingerstick glucose more stable: 146-243. Await transesophageal echocardiogram Objective Last Vital Signs Date Time Temp Pulse Resp B/P (MAP) Pulse Ox O2 Delivery O2 Flow Rate FiO2 08/15/17 12:15 97.4 78 21 162/84 97 Room Air 08/12/17 18:46 21 Laboratory Tests Test 08/15/17 06:30 08/15/17 06:50 White Blood Count 6.7 K/UL (4.8-10.8) Red Blood Count 2.63 M/UL (4.70-6.10) L Hemoglobin 8.5 G/DL (14.2-18.0) L Hematocrit 26.3 % (42.0-52.0) L Mean Corpuscular Volume 100 FL (80-99) H Mean Corpuscular Hemoglobin 32.4 PG (27.0-31.0) H Mean Corpuscular Hemoglobin Concent 32.5 G/DL (32.0-36.0) Red Cell Distribution Width 15.5 % (11.6-14.8) H Platelet Count 214 K/UL (150-450) Mean Platelet Volume 6.6 FL (6.5-10.1) Neutrophils (%) (Auto) 66.5 % (45.0-75.0) Lymphocytes (%) (Auto) 21.1 % (20.0-45.0) Monocytes (%) (Auto) 9.1 % (1.0-10.0) Eosinophils (%) (Auto) 2.7 % (0.0-3.0) Basophils (%) (Auto) 0.6 % (0.0-2.0) Sodium Level 139 MMOL/L (136-145) Potassium Level 4.3 MMOL/L (3.5-5.1) Chloride Level 108 MMOL/L (98-107) H Carbon Dioxide Level 21 MMOL/L (21-32) Anion Gap 10 mmol/L (5-15) Blood Urea Nitrogen 50 mg/dL (7-18) H Creatinine 4.0 MG/DL (0.55-1.30) H Estimat Glomerular Filtration Rate 15.2 mL/min (>60) Glucose Level 222 MG/DL (74-106) #H Calcium Level 8.6 MG/DL (8.5-10.1) Microbiology Date/Time Source Procedure Growth Status 08/13/17 15:19 Blood Blood Culture - Preliminary NO GROWTH AFTER 24 HOURS Resulted 08/13/17 15:15 Blood Blood Culture - Preliminary NO GROWTH AFTER 24 HOURS Resulted Intake and Output 08/14/17 08/15/17 19:00 07:00 Intake Total 1190 ml 550 ml Output Total 2100 ml 400 ml Balance -910 ml 150 ml Intake Oral 1140 ml IV Total 50 ml 550 ml Output Urine Total 2100 ml 400 ml # Voids 4 2 Objective General Appearance: WD/WN, no apparent distress, alert Neck: non-tender, normal alignment, supple Cardiovascular: normal peripheral pulses, normal rate, regular rhythm, no gallop/murmur, no JVD Respiratory/Chest: chest wall non-tender, lungs clear, normal breath sounds, no respiratory distress, no accessory muscle use Extremities: normal range of motion, non-tender Neurologic: no motor/sensory deficits Skin: normal pigmentation, warm/dry Assessment/Plan Problem List: (1) Acute hyperglycemia Assessment & Plan: ? secondaary to infection? See ID and endocrinology note. (2) Uncontrolled diabetes mellitus Assessment & Plan: Continue levemir and novolog sliding scale per endocrinology (3) Anemia (4) CKD (chronic kidney disease), stage III Assessment & Plan: See nephrology note. (5) Hyperglycemia due to type 2 diabetes mellitus (6) CAD (coronary artery disease) (7) HTN (hypertension) Assessment & Plan: Cont lopressor and norvasc. (8) Acute hyperglycemia (9) Gastritis (10) BPH (benign prostatic hyperplasia) (11) Hypercholesteremia (12) Sepsis Assessment & Plan: Staph epidermidis. See ID note. Replace PICC. Continue daptomycin day #7/14 or longer if 2nd blood culture positive per ID. Await Transesophageal echo per ID to R/O endocarditis. Status: not improved DEE MAHER Aug 15, 2017 16:00
[2017-08-15 20:00] VITALS: BP 141/61
--- NOTE | 2017-08-15 23:05 | Progress Note ---
DATE: 08/14/2017 SUBJECTIVE: The patient is pleasant, cooperative, and presented with more depressive symptoms. Has low energy, anhedonia, and worthlessness. He expressed more depressed due to long hospitalization. MENTAL STATUS EXAMINATION: The patient is alert and oriented times self, place, and situation he is in. Mood is depressed. Affect is constricted, congruent with mood. Thought process is concrete. Thought content, no suicidal or homicidal ideations. No delusions. No auditory or visual hallucinations. ASSESSMENT: 1. Depression. 2. Schizophrenia by history. PLAN: 1. We will continue the Cymbalta. 2. Provide the patient with supportive therapy and reality orientation. Fatmata Lu M.D. DR: TON JOB#: [id number] CC:
--- NOTE | 2017-08-15 23:05 | Geriatric Medicine Prog Note ---
DATE: 08/14/[address] Modesto Jacques. SUBJECTIVE: The patient is more comfortable today. OBJECTIVE: Blood pressure 151/70, pulse 85, respiratory rate 20, and temperature 98.8 degrees. RESPIRATORY: Clear. CARDIOVASCULAR: Regular. LABORATORY DATA: Glucose 132. ASSESSMENT: Diabetes mellitus, improved. 5u PLAN: Continue Detemir insulin 10 units subcu daily, 5u NovoLog t.i.d. a.c., losartan 100 mg q.i.d. before meals at bedtime. Sebastian Mc M.D. DR: DEAN JOB#: [id number] CC: ELOY
[2017-08-16] VITALS: BP 147/78
[2017-08-16 04:00] VITALS: BP 148/70
[2017-08-16] MEDS: Sodium Citrate 30ml ORAL SCH ×2 (06:08→17:10)
[2017-08-16] MEDS: NovoLOG Insulin Flexpen SUBQ SCH ×7 (06:10→21:03)
[2017-08-16 08:00] VITALS: BP 156/88
[2017-08-16] MEDS: Tamsulosin 0.4mg cap ORAL SCH ×2 (08:34→21:00)
[2017-08-16] MEDS: Metoprolol Tartrate 50mg tab ORAL SCH ×2 (08:34→21:00)
[2017-08-16] MEDS: Renvela 800mg Pkt ORAL SCH (08:35)
[2017-08-16] MEDS: DULoxetine 30mg cap ORAL SCH (08:35)
[2017-08-16] MEDS: Docusate 100mg cap ORAL SCH ×3 (08:35→17:10)
[2017-08-16] MEDS: azaTHIOprine 50 MG TAB ORAL SCH (08:35)
[2017-08-16] MEDS: Heparin 5000 units/ml inj SUBQ SCH ×2 (08:40→21:02)
[2017-08-16] MEDS: Levemir Flexpen SUBQ SCH ×2 (08:41→17:15)
--- NOTE | 2017-08-16 10:07 | Nephrology Progress Note ---
Assessment/Plan Problem List: (1) CKD (chronic kidney disease), stage III Assessment: cr at lowest 3.9 - 4 (2) Uncontrolled diabetes mellitus (3) BPH (benign prostatic hyperplasia) (4) Anemia (5) Nephropathy, diabetic (6) HTN (hypertension) Assessment Cr low 4. has CKD and was admitted for DM OOC BS is being managed by Endo Also has Bacteremia due to Picc line insertion at [facility] (1) CKD (chronic kidney disease), stage III, superimposed acute- Cr unchanged since last admit (2) Dehydration- Partly due to hyperglycemia (3) Hyperglycemia due to type 2 diabetes mellitus (4) BPH (benign prostatic hypertrophy) (5) Nephropathy, diabetic (6) History of simultaneous kidney and pancreas transplant (7) UTI (urinary tract infection) (8) Anemia of CKD Plan Plan: check for retention via JOHNNY was negative for retention stop hydrate- add hydralazine for high BP BP and BS control- Flomax PO- monitor renal parameters Anemia [place] EPO SQ down on Bicitra Antibiotics for bacterimia ? Dc planning previous workup: 2D Echo: Left ventricular ejection fraction estimated to be 55 %. No evidence of left ventricular hypertrophy. Subjective ROS Limited/Unobtainable: No Constitutional: Reports: malaise Objective Objective Last 24 Hour Vital Signs Date Time Temp Pulse Resp B/P (MAP) Pulse Ox O2 Delivery O2 Flow Rate FiO2 08/16/17 08:34 72 156/88 08/16/17 08:34 72 156/88 08/16/17 08:00 97.9 72 20 156/88 99 08/16/17 04:00 97.5 68 21 148/70 97 08/16/17 00:00 98.6 72 20 147/78 98 08/15/17 21:44 94 141/61 08/15/17 20:00 99.0 94 21 141/61 98 08/15/17 17:45 71 139/64 08/15/17 15:59 98.6 71 20 139/64 97 Room Air 08/15/17 12:15 97.4 78 21 162/84 97 Room Air Intake and Output 08/15/17 08/16/17 19:00 07:00 Intake Total 1510 ml 600 ml Output Total 2000 ml 1000 ml Balance -490 ml -400 ml Intake Oral 960 ml IV Total 550 ml 600 ml Output Urine Total 2000 ml 1000 ml # Voids 4 Height (Feet): 5 Height (Inches): 8.00 Weight (Pounds): 209 General Appearance: no apparent distress, lethargic Cardiovascular: normal rate Respiratory/Chest: decreased breath sounds Abdomen: soft, distended Objective no change BERT ALONSO Aug 16, 2017 10:07
[2017-08-16 10:14] LABS: BASOPHILS % (AUTO) 0.9 % (0.0-2.0); EOSINOPHILS % (AUTO) 4.5 % (0.0-3.0); HEMATOCRIT 24.7 % (42.0-52.0); MEAN CORPUSCULAR VOLUME 100 FL (80-99); MONOCYTES % (AUTO) 10.5 % (1.0-10.0); NEUTROPHILS % (AUTO) 63.1 % (45.0-75.0); PLATELET COUNT 244 K/UL (150-450); RED BLOOD COUNT 2.47 M/UL (4.70-6.10); RED CELL DISTRIBUTION WIDTH 15.6 % (11.6-14.8); WHITE BLOOD COUNT 7.1 K/UL (4.8-10.8)
[2017-08-16 10:23] LABS: ANION GAP 10 mmol/L (5-15); BLOOD UREA NITROGEN 46 mg/dL (7-18); CALCIUM 8.5 MG/DL (8.5-10.1); CARBON DIOXIDE 20 MMOL/L (21-32); CHLORIDE 112 MMOL/L (98-107); SODIUM 142 MMOL/L (136-145)
[2017-08-16 10:37] LABS: CREATINE KINASE 196 U/L (26-308)
--- NOTE | 2017-08-16 11:10 | Internal Med Progress Note ---
Subjective Date of Service: Aug 16, 2017 Physician Name MaherDee aguilar Attending Physician Christopher Rosado MD Current Medications Medications (Trade) Dose Ordered Sig/Dunia Route PRN Reason Start Time Stop Time Status Last Admin Dose Admin Acetaminophen (Tylenol) 650 mg Q4H PRN ORAL fever 08/06/17 22:45 09/05/17 22:44 08/07/17 10:56 Amlodipine Besylate (Norvasc) 5 mg BID ORAL 08/09/17 18:00 09/06/17 08:59 08/16/17 08:34 Azathioprine (Imuran) 50 mg DAILY ORAL 08/07/17 09:00 09/06/17 08:59 08/16/17 08:35 Clonidine HCl (Catapres Tab) 0.1 mg Q4H PRN ORAL sbp more than 160 08/06/17 22:45 09/05/17 22:44 08/12/17 11:57 Daptomycin 500 mg/ Sodium Chloride 55 ml @ 110 mls/hr Q48H IV 08/15/17 14:00 08/22/17 13:59 08/15/17 15:27 Dextrose (Dextrose 50%) STAT PRN IV Hypoglycemia 08/08/17 09:00 09/07/17 08:59 08/10/17 18:27 Docusate Sodium (Colace) 100 mg TID ORAL 08/09/17 18:00 09/08/17 17:59 08/15/17 17:45 Duloxetine HCl (Cymbalta) 30 mg DAILY ORAL 08/07/17 09:00 09/06/17 08:59 08/16/17 08:35 Epoetin Jose (Procrit (for non ESRD use)) 10,000 units WED-WED-WED SUBQ 08/11/17 21:00 09/10/17 20:59 08/13/17 21:11 Finasteride (Proscar) 5 mg DAILY ORAL 08/07/17 09:00 09/06/17 08:59 08/16/17 08:34 Heparin Sodium (Porcine) (Heparin 5000 units/ml) 5,000 units EVERY 12 HOURS SUBQ 08/07/17 09:00 09/06/17 08:59 08/16/17 08:40 Hydralazine HCl (Apresoline) 25 mg Q8HR ORAL 08/16/17 14:00 3/7/18 13:59 Insulin Aspart (NovoLOG) BEFORE MEALS AND HS SUBQ 08/10/17 21:00 09/09/17 20:59 08/16/17 06:11 Insulin Aspart (NovoLOG) 5 units NOVOTIAC SUBQ 08/12/17 06:30 09/11/17 06:29 08/16/17 06:10 Insulin Detemir (Levemir) 10 units BID SUBQ 08/09/17 21:00 09/08/17 20:59 08/16/17 08:41 Metoprolol Tartrate (Lopressor) 50 mg Q12HR ORAL 08/07/17 21:00 09/06/17 20:59 08/16/17 08:34 Morphine Sulfate (Morphine Sulfate) 2 mg Q4H PRN IVP For Pain 08/14/17 15:45 08/21/17 15:44 Nitroglycerin (Ntg) 0.4 mg Q5M X 3 DOSES PRN SL Prn Chest Pain 08/06/17 22:45 09/05/17 22:44 Ondansetron HCl (Zofran) 4 mg Q6H PRN IVP Nausea & Vomiting 08/06/17 22:45 09/05/17 22:44 Pantoprazole (Protonix) 40 mg DAILY ORAL 08/09/17 16:30 09/08/17 16:29 08/16/17 08:34 Polyethylene Glycol (Miralax) 17 gm HSPRN PRN ORAL Constipation 08/06/17 22:45 09/05/17 22:44 Sodium Citrate (Bicitra) 30 ml BID ORAL 08/16/17 18:00 09/09/17 11:59 Tamsulosin HCl (Flomax) 0.4 mg Q12HR ORAL 08/07/17 21:00 09/06/17 20:59 08/16/17 08:34 Temazepam (Restoril) 15 mg HSPRN PRN ORAL Insomnia 08/14/17 15:45 08/21/17 15:44 Allergies: Coded Allergies: CEFEPIME (Verified Allergy, Intermediate, Rash, 01/23/13) ROS Limited/Unobtainable: No Constitutional: Reports: no symptoms HEENT: Reports: no symptoms Cardiovascular: Reports: no symptoms Respiratory: Reports: no symptoms Gastrointestinal/Abdominal: Reports: no symptoms Genitourinary: Reports: no symptoms Neurologic/Psychiatric: Reports: no symptoms Subjective 62 YO M admitted with hyperglycemia. Now sepsis. Cover for Int Med-Dr Rosado.. Fingerstick glucose more stable: 146-243. Await transesophageal echocardiogram Objective Last Vital Signs Date Time Temp Pulse Resp B/P (MAP) Pulse Ox O2 Delivery O2 Flow Rate FiO2 08/16/17 08:34 72 156/88 08/16/17 08:00 97.9 20 99 08/15/17 15:59 Room Air 08/12/17 18:46 21 Laboratory Tests Test 08/16/17 09:50 White Blood Count 7.1 K/UL (4.8-10.8) Red Blood Count 2.47 M/UL (4.70-6.10) L Hemoglobin 8.0 G/DL (14.2-18.0) L Hematocrit 24.7 % (42.0-52.0) L Mean Corpuscular Volume 100 FL (80-99) H Mean Corpuscular Hemoglobin 32.5 PG (27.0-31.0) H Mean Corpuscular Hemoglobin Concent 32.4 G/DL (32.0-36.0) Red Cell Distribution Width 15.6 % (11.6-14.8) H Platelet Count 244 K/UL (150-450) Mean Platelet Volume 6.9 FL (6.5-10.1) Neutrophils (%) (Auto) 63.1 % (45.0-75.0) Lymphocytes (%) (Auto) 21.0 % (20.0-45.0) Monocytes (%) (Auto) 10.5 % (1.0-10.0) H Eosinophils (%) (Auto) 4.5 % (0.0-3.0) H Basophils (%) (Auto) 0.9 % (0.0-2.0) Sodium Level 142 MMOL/L (136-145) Potassium Level 4.0 MMOL/L (3.5-5.1) Chloride Level 112 MMOL/L (98-107) H Carbon Dioxide Level 20 MMOL/L (21-32) L Anion Gap 10 mmol/L (5-15) Blood Urea Nitrogen 46 mg/dL (7-18) H Creatinine 4.0 MG/DL (0.55-1.30) H Estimat Glomerular Filtration Rate 15.2 mL/min (>60) Glucose Level 82 MG/DL (74-106) # Calcium Level 8.5 MG/DL (8.5-10.1) Total Creatine Kinase 196 U/L (26-308) Microbiology Date/Time Source Procedure Growth Status 08/13/17 15:19 Blood Blood Culture - Preliminary NO GROWTH AFTER 48 HOURS Resulted 08/13/17 15:15 Blood Blood Culture - Preliminary NO GROWTH AFTER 48 HOURS Resulted Intake and Output 08/15/17 08/16/17 19:00 07:00 Intake Total 1510 ml 600 ml Output Total 2000 ml 1000 ml Balance -490 ml -400 ml Intake Oral 960 ml IV Total 550 ml 600 ml Output Urine Total 2000 ml 1000 ml # Voids 4 Objective General Appearance: WD/WN, no apparent distress, alert Neck: non-tender, normal alignment, supple Cardiovascular: normal peripheral pulses, normal rate, regular rhythm, no gallop/murmur, no JVD Respiratory/Chest: chest wall non-tender, lungs clear, normal breath sounds, no respiratory distress, no accessory muscle use Extremities: normal range of motion, non-tender Neurologic: no motor/sensory deficits Skin: normal pigmentation, warm/dry Assessment/Plan Problem List: (1) Acute hyperglycemia Assessment & Plan: ? secondaary to infection? See ID and endocrinology note. (2) Uncontrolled diabetes mellitus Assessment & Plan: Continue levemir and novolog sliding scale per endocrinology (3) Anemia (4) CKD (chronic kidney disease), stage III Assessment & Plan: See nephrology note. (5) Hyperglycemia due to type 2 diabetes mellitus (6) CAD (coronary artery disease) (7) HTN (hypertension) Assessment & Plan: Cont lopressor and norvasc. (8) Acute hyperglycemia (9) Gastritis (10) BPH (benign prostatic hyperplasia) (11) Hypercholesteremia (12) Sepsis Assessment & Plan: Staph epidermidis. See ID note. Replace PICC. Continue daptomycin day #7/14 or longer if 2nd blood culture positive per ID. Await Transesophageal echo per ID to R/O endocarditis. Dr Cruz not available until Th08/19/17; Dr Callejas notified. Status: progressing DEE MAHER Aug 16, 2017 11:10
--- NOTE | 2017-08-16 11:40 | Cardiac Electrophysiology PN ---
Subjective Subjective Cardiology consult dictated and DW Dr Glasgow. AMY Ordered [id number] Objective Last 24 Hour Vital Signs Date Time Temp Pulse Resp B/P (MAP) Pulse Ox O2 Delivery O2 Flow Rate FiO2 08/16/17 08:34 72 156/88 08/16/17 08:34 72 156/88 08/16/17 08:00 97.9 72 20 156/88 99 08/16/17 04:00 97.5 68 21 148/70 97 08/16/17 00:00 98.6 72 20 147/78 98 08/15/17 21:44 94 141/61 08/15/17 20:00 99.0 94 21 141/61 98 08/15/17 17:45 71 139/64 08/15/17 15:59 98.6 71 20 139/64 97 Room Air 08/15/17 12:15 97.4 78 21 162/84 97 Room Air Intake and Output 08/15/17 08/16/17 19:00 07:00 Intake Total 1510 ml 600 ml Output Total 2000 ml 1000 ml Balance -490 ml -400 ml Intake Oral 960 ml IV Total 550 ml 600 ml Output Urine Total 2000 ml 1000 ml # Voids 4 Laboratory Tests Test 08/16/17 09:50 White Blood Count 7.1 K/UL (4.8-10.8) Red Blood Count 2.47 M/UL (4.70-6.10) L Hemoglobin 8.0 G/DL (14.2-18.0) L Hematocrit 24.7 % (42.0-52.0) L Mean Corpuscular Volume 100 FL (80-99) H Mean Corpuscular Hemoglobin 32.5 PG (27.0-31.0) H Mean Corpuscular Hemoglobin Concent 32.4 G/DL (32.0-36.0) Red Cell Distribution Width 15.6 % (11.6-14.8) H Platelet Count 244 K/UL (150-450) Mean Platelet Volume 6.9 FL (6.5-10.1) Neutrophils (%) (Auto) 63.1 % (45.0-75.0) Lymphocytes (%) (Auto) 21.0 % (20.0-45.0) Monocytes (%) (Auto) 10.5 % (1.0-10.0) H Eosinophils (%) (Auto) 4.5 % (0.0-3.0) H Basophils (%) (Auto) 0.9 % (0.0-2.0) Sodium Level 142 MMOL/L (136-145) Potassium Level 4.0 MMOL/L (3.5-5.1) Chloride Level 112 MMOL/L (98-107) H Carbon Dioxide Level 20 MMOL/L (21-32) L Anion Gap 10 mmol/L (5-15) Blood Urea Nitrogen 46 mg/dL (7-18) H Creatinine 4.0 MG/DL (0.55-1.30) H Estimat Glomerular Filtration Rate 15.2 mL/min (>60) Glucose Level 82 MG/DL (74-106) # Calcium Level 8.5 MG/DL (8.5-10.1) Total Creatine Kinase 196 U/L (26-308) Microbiology Date/Time Source Procedure Growth Status 08/13/17 15:19 Blood Blood Culture - Preliminary NO GROWTH AFTER 48 HOURS Resulted 08/13/17 15:15 Blood Blood Culture - Preliminary NO GROWTH AFTER 48 HOURS Resulted RED CAMARENA Aug 16, 2017 11:40
[2017-08-16 12:00] VITALS: BP 154/75
--- NOTE | 2017-08-16 12:30 | Infectious Diseases Prog Note ---
Assessment/Plan Assessment/Plan ASSESSMENT: The patient is a 62-year-old male with: Persistent Staph Epi bacteremia- initially suspected 2ry to infected PICC line, however patient persist bacteremic despite line removal, there for suspicion for occult source or endovascular source- r/o endocarditis -s/p PICC removal 08/09; cath cx NTD -08/06 Bcx / Staph epi/MRSE (labeld peripheral), Bcx 08/07 NTD, 08/08 (line) 2/ 2 MRSE; 08/09/ GPC clusters (however line was still in place); Bcx 08/11 2/4 S. epi; 2/2 NTD -TTE: Thickened mitral valve leaflets with normal excursion. Mild mitral annulus and aortic root calcification. Pulmonic valve is well visualized. Normal tricuspid valve structure. No echodensity is seen on valves (vegetation) , consider AMY if clinically indicated. Low-grade fever/leukocytosis- resolved -u/a no pyuria, ucx 10-20k mixed gram positive -CXR no acute disease Uncontrolled diabetes, probably due to sepsis. 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 -History of renal and pancreas transplant about 10 years ago. 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 -07/15 E fecalis (Amp R, Vanco S) - History of suicidal attempts in the past. -. History of myocardial infarction. -. History of anemia. -. History of colon polyps. PLAN: -Continue daptomycin #10 for S. epi bacteremia; duration to follow pending AMY, but minimum of 4 weeks from 1st of neg bcx. -weekly CPK -08/09 SP Aztreonam #3 -AMY to eval for endocarditis -f/u repeat 2 sets of Bcx -Hold picc line placement until Bcx negative for 48-72hrs -may insert tomorrow if Bcx 2/2 remains NTD and patient afebrile - Monitor CBC/BMP, temperatuers -aspiration precautions Thank you, Dr. Delgado, for allowing me to participate in the care of this patient. I will follow the patient with you during this hospitalization. Discussed with RN Subjective Allergies: Coded Allergies: CEFEPIME (Verified Allergy, Intermediate, Rash, 01/23/13) Subjective afebrile no leukocytosis repeat Bcx 2/ NTD awaiting AMY Objective Vital Signs Last 24 Hour Vital Signs Date Time Temp Pulse Resp B/P (MAP) Pulse Ox O2 Delivery O2 Flow Rate FiO2 08/16/17 08:34 72 156/88 08/16/17 08:34 72 156/88 08/16/17 08:00 97.9 72 20 156/88 99 08/16/17 04:00 97.5 68 21 148/70 97 08/16/17 00:00 98.6 72 20 147/78 98 08/15/17 21:44 94 141/61 08/15/17 20:00 99.0 94 21 141/61 98 08/15/17 17:45 71 139/64 08/15/17 15:59 98.6 71 20 139/64 97 Room Air Height (Feet): 5 Height (Inches): 8.00 Weight (Pounds): 209 Objective HEENT: No pale conjunctivae. No icterus. CHEST: Clear. HEART: S1 and S2. ABDOMEN: Soft, obese, nontender. EXTREMITIES: picc line removed, no rash NEUROLOGIC: Awake and alert. SKIN: The patient has scattered scratch velasquez on the upper and lower extremities. Microbiology Date/Time Source Procedure Growth Status 08/13/17 15:19 Blood Blood Culture - Preliminary NO GROWTH AFTER 48 HOURS Resulted 08/13/17 15:15 Blood Blood Culture - Preliminary NO GROWTH AFTER 48 HOURS Resulted Laboratory Tests Test 08/16/17 09:50 White Blood Count 7.1 K/UL (4.8-10.8) Red Blood Count 2.47 M/UL (4.70-6.10) L Hemoglobin 8.0 G/DL (14.2-18.0) L Hematocrit 24.7 % (42.0-52.0) L Mean Corpuscular Volume 100 FL (80-99) H Mean Corpuscular Hemoglobin 32.5 PG (27.0-31.0) H Mean Corpuscular Hemoglobin Concent 32.4 G/DL (32.0-36.0) Red Cell Distribution Width 15.6 % (11.6-14.8) H Platelet Count 244 K/UL (150-450) Mean Platelet Volume 6.9 FL (6.5-10.1) Neutrophils (%) (Auto) 63.1 % (45.0-75.0) Lymphocytes (%) (Auto) 21.0 % (20.0-45.0) Monocytes (%) (Auto) 10.5 % (1.0-10.0) H Eosinophils (%) (Auto) 4.5 % (0.0-3.0) H Basophils (%) (Auto) 0.9 % (0.0-2.0) Sodium Level 142 MMOL/L (136-145) Potassium Level 4.0 MMOL/L (3.5-5.1) Chloride Level 112 MMOL/L (98-107) H Carbon Dioxide Level 20 MMOL/L (21-32) L Anion Gap 10 mmol/L (5-15) Blood Urea Nitrogen 46 mg/dL (7-18) H Creatinine 4.0 MG/DL (0.55-1.30) H Estimat Glomerular Filtration Rate 15.2 mL/min (>60) Glucose Level 82 MG/DL (74-106) # Calcium Level 8.5 MG/DL (8.5-10.1) Total Creatine Kinase 196 U/L (26-308) Current Medications Medications (Trade) Dose Ordered Sig/Dunia Route PRN Reason Start Time Stop Time Status Last Admin Dose Admin Acetaminophen (Tylenol) 650 mg Q4H PRN ORAL fever 08/06/17 22:45 09/05/17 22:44 08/07/17 10:56 Amlodipine Besylate (Norvasc) 5 mg BID ORAL 08/09/17 18:00 09/06/17 08:59 08/16/17 08:34 Azathioprine (Imuran) 50 mg DAILY ORAL 08/07/17 09:00 09/06/17 08:59 08/16/17 08:35 Clonidine HCl (Catapres Tab) 0.1 mg Q4H PRN ORAL sbp more than 160 08/06/17 22:45 09/05/17 22:44 08/12/17 11:57 Daptomycin 500 mg/ Sodium Chloride 55 ml @ 110 mls/hr Q48H IV 08/15/17 14:00 08/22/17 13:59 08/15/17 15:27 Dextrose (Dextrose 50%) STAT PRN IV Hypoglycemia 08/08/17 09:00 09/07/17 08:59 08/10/17 18:27 Docusate Sodium (Colace) 100 mg TID ORAL 08/09/17 18:00 09/08/17 17:59 08/15/17 17:45 Duloxetine HCl (Cymbalta) 30 mg DAILY ORAL 08/07/17 09:00 09/06/17 08:59 08/16/17 08:35 Epoetin Jose (Procrit (for non ESRD use)) 10,000 units WED-WED-WED SUBQ 08/11/17 21:00 09/10/17 20:59 08/13/17 21:11 Finasteride (Proscar) 5 mg DAILY ORAL 08/07/17 09:00 09/06/17 08:59 08/16/17 08:34 Heparin Sodium (Porcine) (Heparin 5000 units/ml) 5,000 units EVERY 12 HOURS SUBQ 08/07/17 09:00 09/06/17 08:59 08/16/17 08:40 Hydralazine HCl (Apresoline) 25 mg Q8HR ORAL 08/16/17 14:00 09/15/17 13:59 Insulin Aspart (NovoLOG) BEFORE MEALS AND HS SUBQ 08/10/17 21:00 09/09/17 20:59 08/16/17 06:11 Insulin Aspart (NovoLOG) 5 units NOVOTIAC SUBQ 08/12/17 06:30 09/11/17 06:29 08/16/17 06:10 Insulin Detemir (Levemir) 10 units BID SUBQ 08/09/17 21:00 09/08/17 20:59 08/16/17 08:41 Metoprolol Tartrate (Lopressor) 50 mg Q12HR ORAL 08/07/17 21:00 09/06/17 20:59 08/16/17 08:34 Morphine Sulfate (Morphine Sulfate) 2 mg Q4H PRN IVP For Pain 08/14/17 15:45 08/21/17 15:44 Nitroglycerin (Ntg) 0.4 mg Q5M X 3 DOSES PRN SL Prn Chest Pain 08/06/17 22:45 09/05/17 22:44 Ondansetron HCl (Zofran) 4 mg Q6H PRN IVP Nausea & Vomiting 08/06/17 22:45 09/05/17 22:44 Pantoprazole (Protonix) 40 mg DAILY ORAL 08/09/17 16:30 09/08/17 16:29 08/16/17 08:34 Polyethylene Glycol (Miralax) 17 gm HSPRN PRN ORAL Constipation 08/06/17 22:45 09/05/17 22:44 Sodium Citrate (Bicitra) 30 ml BID ORAL 08/16/17 18:00 09/09/17 11:59 Tamsulosin HCl (Flomax) 0.4 mg Q12HR ORAL 08/07/17 21:00 09/06/17 20:59 08/16/17 08:34 Temazepam (Restoril) 15 mg HSPRN PRN ORAL Insomnia 08/14/17 15:45 08/21/17 15:44 Monique Read M.D. Aug 16, 2017 12:30
[2017-08-16] MEDS: HydrALAZINE 25mg tab ORAL SCH ×2 (14:53→22:00)
[2017-08-16 16:00] VITALS: BP 158/86
--- NOTE | 2017-08-16 17:44 | Pulmonology Progress Note ---
Assessment/Plan Problems: (1) Bacteremia (2) Uncontrolled diabetes mellitus (3) Anemia in chronic kidney disease (4) Psychiatric disturbance (5) Anemia (6) Renal transplant recipient Assessment/Plan improving all reviewed sliding scale iv fluids psych f/u diabetic diet f/u blood culture sensitivities f/u ID recommendations continue abx AMY b/o persistent endocarditis Subjective ROS Limited/Unobtainable: No HEENT: Repors: no symptoms Allergies: Coded Allergies: CEFEPIME (Verified Allergy, Intermediate, Rash, 01/23/13) Objective Last 24 Hour Vital Signs Date Time Temp Pulse Resp B/P (MAP) Pulse Ox O2 Delivery O2 Flow Rate FiO2 08/16/17 17:10 76 158/86 08/16/17 16:00 96.3 76 20 158/86 97 08/16/17 14:53 154/75 08/16/17 12:00 97.7 67 20 154/75 97 Room Air 08/16/17 08:34 72 156/88 08/16/17 08:34 72 156/88 08/16/17 08:00 97.9 72 20 156/88 99 08/16/17 04:00 97.5 68 21 148/70 97 08/16/17 00:00 98.6 72 20 147/78 98 08/15/17 21:44 94 141/61 08/15/17 20:00 99.0 94 21 141/61 98 08/15/17 17:45 71 139/64 Intake and Output 08/15/17 08/16/17 19:00 07:00 Intake Total 1510 ml 600 ml Output Total 2000 ml 1000 ml Balance -490 ml -400 ml Intake Oral 960 ml IV Total 550 ml 600 ml Output Urine Total 2000 ml 1000 ml # Voids 4 Objective General Appearance: WN Lines, tubes and drains: peripheral HEENT: normocephalic, atraumatic Neck: non-tender, normal alignment Respiratory/Chest: chest wall non-tender, lungs clear Cardiovascular/Chest: normal peripheral pulses, normal rate Abdomen: normal bowel sounds, non tender Genitourinary/Rectal: normal genital exam, normal rectal exam Skin Exam: normal pigmentation Laboratory Tests 08/16/17 09:50: White Blood Count 7.1, Red Blood Count 2.47L, Hemoglobin 8.0L, Hematocrit 24.7L , Mean Corpuscular Volume 100H, Mean Corpuscular Hemoglobin 32.5H, Mean Corpuscular Hemoglobin Concent 32.4, Red Cell Distribution Width 15.6H, Platelet Count 244, Mean Platelet Volume 6.9, Neutrophils (%) (Auto) 63.1, Lymphocytes (%) (Auto) 21.0, Monocytes (%) (Auto) 10.5H, Eosinophils (%) (Auto) 4.5H, Basophils (%) (Auto) 0.9, Sodium Level 142, Potassium Level 4.0, Chloride Level 112H, Carbon Dioxide Level 20L, Anion Gap 10, Blood Urea Nitrogen 46H, Creatinine 4.0H, Estimat Glomerular Filtration Rate 15.2, Glucose Level 82#, Calcium Level 8.5, Total Creatine Kinase 196 Current Medications Medications (Trade) Dose Ordered Sig/Dunia Route PRN Reason Start Time Stop Time Status Last Admin Dose Admin Acetaminophen (Tylenol) 650 mg Q4H PRN ORAL fever 08/06/17 22:45 09/05/17 22:44 08/07/17 10:56 Amlodipine Besylate (Norvasc) 5 mg BID ORAL 08/09/17 18:00 09/06/17 08:59 08/16/17 17:10 Azathioprine (Imuran) 50 mg DAILY ORAL 08/07/17 09:00 09/06/17 08:59 08/16/17 08:35 Clonidine HCl (Catapres Tab) 0.1 mg Q4H PRN ORAL sbp more than 160 08/06/17 22:45 09/05/17 22:44 08/12/17 11:57 Daptomycin 500 mg/ Sodium Chloride 55 ml @ 110 mls/hr Q48H IV 08/15/17 14:00 08/22/17 13:59 08/15/17 15:27 Dextrose (Dextrose 50%) STAT PRN IV Hypoglycemia 08/08/17 09:00 09/07/17 08:59 08/10/17 18:27 Docusate Sodium (Colace) 100 mg TID ORAL 08/09/17 18:00 09/08/17 17:59 08/16/17 17:10 Duloxetine HCl (Cymbalta) 30 mg DAILY ORAL 08/07/17 09:00 09/06/17 08:59 08/16/17 08:35 Epoetin Jose (Procrit (for non ESRD use)) 10,000 units WED-WED-WED SUBQ 08/11/17 21:00 09/10/17 20:59 08/13/17 21:11 Finasteride (Proscar) 5 mg DAILY ORAL 08/07/17 09:00 09/06/17 08:59 08/16/17 08:34 Heparin Sodium (Porcine) (Heparin 5000 units/ml) 5,000 units EVERY 12 HOURS SUBQ 08/07/17 09:00 09/06/17 08:59 08/16/17 08:40 Hydralazine HCl (Apresoline) 25 mg Q8HR ORAL 08/16/17 14:00 09/15/17 13:59 08/16/17 14:53 Insulin Aspart (NovoLOG) BEFORE MEALS AND HS SUBQ 08/10/17 21:00 09/09/17 20:59 08/16/17 17:14 Insulin Aspart (NovoLOG) 5 units NOVOTIAC SUBQ 08/12/17 06:30 09/11/17 06:29 08/16/17 17:14 Insulin Detemir (Levemir) 10 units BID SUBQ 08/09/17 21:00 09/08/17 20:59 08/16/17 17:15 Metoprolol Tartrate (Lopressor) 50 mg Q12HR ORAL 08/07/17 21:00 09/06/17 20:59 08/16/17 08:34 Morphine Sulfate (Morphine Sulfate) 2 mg Q4H PRN IVP For Pain 08/14/17 15:45 08/21/17 15:44 Nitroglycerin (Ntg) 0.4 mg Q5M X 3 DOSES PRN SL Prn Chest Pain 08/06/17 22:45 09/05/17 22:44 Ondansetron HCl (Zofran) 4 mg Q6H PRN IVP Nausea & Vomiting 08/06/17 22:45 09/05/17 22:44 Pantoprazole (Protonix) 40 mg DAILY ORAL 08/09/17 16:30 09/08/17 16:29 08/16/17 08:34 Polyethylene Glycol (Miralax) 17 gm HSPRN PRN ORAL Constipation 08/06/17 22:45 09/05/17 22:44 Sodium Citrate (Bicitra) 30 ml BID ORAL 08/16/17 18:00 3/1/18 11:59 08/16/17 17:10 Tamsulosin HCl (Flomax) 0.4 mg Q12HR ORAL 08/07/17 21:00 09/06/17 20:59 08/16/17 08:34 Temazepam (Restoril) 15 mg HSPRN PRN ORAL Insomnia 08/14/17 15:45 08/21/17 15:44 MARGO GALLEGOS Aug 16, 2017 17:44
--- NOTE | 2017-08-16 19:15 | Cardiology Progress Note ---
Assessment/Plan Assessment/Plan Cardiology consultation was made at request of Dr. Rosado for performing AMY in a patient suspected to have possible infective endocarditis. The patient is seen and examined, full consult note is dictated. Objective Last 24 Hour Vital Signs Date Time Temp Pulse Resp B/P (MAP) Pulse Ox O2 Delivery O2 Flow Rate FiO2 08/16/17 17:10 76 158/86 08/16/17 16:00 96.3 76 20 158/86 97 08/16/17 14:53 154/75 08/16/17 12:00 97.7 67 20 154/75 97 Room Air 08/16/17 08:34 72 156/88 08/16/17 08:34 72 156/88 08/16/17 08:00 97.9 72 20 156/88 99 08/16/17 04:00 97.5 68 21 148/70 97 08/16/17 00:00 98.6 72 20 147/78 98 08/15/17 21:44 94 141/61 08/15/17 20:00 99.0 94 21 141/61 98 Intake and Output 08/15/17 08/16/17 19:00 07:00 Intake Total 1510 ml 600 ml Output Total 2000 ml 1000 ml Balance -490 ml -400 ml Intake Oral 960 ml IV Total 550 ml 600 ml Output Urine Total 2000 ml 1000 ml # Voids 4 Laboratory Tests Test 08/16/17 09:50 White Blood Count 7.1 K/UL (4.8-10.8) Red Blood Count 2.47 M/UL (4.70-6.10) L Hemoglobin 8.0 G/DL (14.2-18.0) L Hematocrit 24.7 % (42.0-52.0) L Mean Corpuscular Volume 100 FL (80-99) H Mean Corpuscular Hemoglobin 32.5 PG (27.0-31.0) H Mean Corpuscular Hemoglobin Concent 32.4 G/DL (32.0-36.0) Red Cell Distribution Width 15.6 % (11.6-14.8) H Platelet Count 244 K/UL (150-450) Mean Platelet Volume 6.9 FL (6.5-10.1) Neutrophils (%) (Auto) 63.1 % (45.0-75.0) Lymphocytes (%) (Auto) 21.0 % (20.0-45.0) Monocytes (%) (Auto) 10.5 % (1.0-10.0) H Eosinophils (%) (Auto) 4.5 % (0.0-3.0) H Basophils (%) (Auto) 0.9 % (0.0-2.0) Sodium Level 142 MMOL/L (136-145) Potassium Level 4.0 MMOL/L (3.5-5.1) Chloride Level 112 MMOL/L (98-107) H Carbon Dioxide Level 20 MMOL/L (21-32) L Anion Gap 10 mmol/L (5-15) Blood Urea Nitrogen 46 mg/dL (7-18) H Creatinine 4.0 MG/DL (0.55-1.30) H Estimat Glomerular Filtration Rate 15.2 mL/min (>60) Glucose Level 82 MG/DL (74-106) # Calcium Level 8.5 MG/DL (8.5-10.1) Total Creatine Kinase 196 U/L (26-308) RED CHINCHILLA Aug 16, 2017 19:15
--- NOTE | 2017-08-16 19:44 | General Progress Note ---
Assessment/Plan Problem List: (1) ESRD (end stage renal disease) ICD Codes: N18.6 - End stage renal disease SNOMED: 80029611 (2) History of simultaneous kidney and pancreas transplant ICD Codes: Z94.0 - History of simultaneous kidney and pancreas transplant; Z94.83 - Pancreas transplant status SNOMED: 991037077 (3) Uncontrolled diabetes mellitus ICD Codes: E11.65 - Type 2 diabetes mellitus with hyperglycemia SNOMED: 229182576 Assessment/Plan continue Levemir 10 units bid - do not hold continue Novolog 5 units ac tid continue NISS sensitive scale discussed with RN Subjective Allergies: Coded Allergies: CEFEPIME (Verified Allergy, Intermediate, Rash, 01/23/13) All Systems: reviewed and negative except above Subjective events noted Objective Last 24 Hour Vital Signs Date Time Temp Pulse Resp B/P (MAP) Pulse Ox O2 Delivery O2 Flow Rate FiO2 08/16/17 17:10 76 158/86 08/16/17 16:00 96.3 76 20 158/86 97 08/16/17 14:53 154/75 08/16/17 12:00 97.7 67 20 154/75 97 Room Air 08/16/17 08:34 72 156/88 08/16/17 08:34 72 156/88 08/16/17 08:00 97.9 72 20 156/88 99 08/16/17 04:00 97.5 68 21 148/70 97 08/16/17 00:00 98.6 72 20 147/78 98 08/15/17 21:44 94 141/61 08/15/17 20:00 99.0 94 21 141/61 98 Intake and Output 08/15/17 08/16/17 19:00 07:00 Intake Total 1510 ml 600 ml Output Total 2000 ml 1000 ml Balance -490 ml -400 ml Intake Oral 960 ml IV Total 550 ml 600 ml Output Urine Total 2000 ml 1000 ml # Voids 4 Laboratory Tests 08/16/17 09:50: White Blood Count 7.1, Red Blood Count 2.47L, Hemoglobin 8.0L, Hematocrit 24.7L , Mean Corpuscular Volume 100H, Mean Corpuscular Hemoglobin 32.5H, Mean Corpuscular Hemoglobin Concent 32.4, Red Cell Distribution Width 15.6H, Platelet Count 244, Mean Platelet Volume 6.9, Neutrophils (%) (Auto) 63.1, Lymphocytes (%) (Auto) 21.0, Monocytes (%) (Auto) 10.5H, Eosinophils (%) (Auto) 4.5H, Basophils (%) (Auto) 0.9, Sodium Level 142, Potassium Level 4.0, Chloride Level 112H, Carbon Dioxide Level 20L, Anion Gap 10, Blood Urea Nitrogen 46H, Creatinine 4.0H, Estimat Glomerular Filtration Rate 15.2, Glucose Level 82#, Calcium Level 8.5, Total Creatine Kinase 196 Height (Feet): 5 Height (Inches): 8.00 Weight (Pounds): 209 General Appearance: no apparent distress Neck: normal alignment Cardiovascular: normal rate Respiratory/Chest: lungs clear Pelvis: normal external exam Edema: 1+ Arm (L), 1+ Arm (R), 1+ Leg (L), 1+ Leg (R), 1+ Pedal (L), 1+ Pedal ( R), 1+ Generalized Objective Current Medications Medications (Trade) Dose Ordered Sig/Dunia Route PRN Reason Start Time Stop Time Status Last Admin Dose Admin Acetaminophen (Tylenol) 650 mg Q4H PRN ORAL fever 08/06/17 22:45 09/05/17 22:44 08/07/17 10:56 Amlodipine Besylate (Norvasc) 5 mg BID ORAL 08/09/17 18:00 09/06/17 08:59 08/16/17 17:10 Azathioprine (Imuran) 50 mg DAILY ORAL 08/07/17 09:00 09/06/17 08:59 08/16/17 08:35 Clonidine HCl (Catapres Tab) 0.1 mg Q4H PRN ORAL sbp more than 160 08/06/17 22:45 09/05/17 22:44 08/12/17 11:57 Daptomycin 500 mg/ Sodium Chloride 55 ml @ 110 mls/hr Q48H IV 08/15/17 14:00 08/22/17 13:59 08/15/17 15:27 Dextrose (Dextrose 50%) STAT PRN IV Hypoglycemia 08/08/17 09:00 09/07/17 08:59 08/10/17 18:27 Docusate Sodium (Colace) 100 mg TID ORAL 08/09/17 18:00 09/08/17 17:59 08/16/17 17:10 Duloxetine HCl (Cymbalta) 30 mg DAILY ORAL 08/07/17 09:00 09/06/17 08:59 08/16/17 08:35 Epoetin Jose (Procrit (for non ESRD use)) 10,000 units WED-WED-WED SUBQ 08/11/17 21:00 09/10/17 20:59 08/13/17 21:11 Finasteride (Proscar) 5 mg DAILY ORAL 08/07/17 09:00 09/06/17 08:59 08/16/17 08:34 Heparin Sodium (Porcine) (Heparin 5000 units/ml) 5,000 units EVERY 12 HOURS SUBQ 08/07/17 09:00 09/06/17 08:59 08/16/17 08:40 Hydralazine HCl (Apresoline) 25 mg Q8HR ORAL 08/16/17 14:00 09/15/17 13:59 08/16/17 14:53 Insulin Aspart (NovoLOG) BEFORE MEALS AND HS SUBQ 08/10/17 21:00 09/09/17 20:59 08/16/17 17:14 Insulin Aspart (NovoLOG) 5 units NOVOTIAC SUBQ 08/12/17 06:30 09/11/17 06:29 08/16/17 17:14 Insulin Detemir (Levemir) 10 units BID SUBQ 08/09/17 21:00 09/08/17 20:59 08/16/17 17:15 Metoprolol Tartrate (Lopressor) 50 mg Q12HR ORAL 08/07/17 21:00 09/06/17 20:59 08/16/17 08:34 Morphine Sulfate (Morphine Sulfate) 2 mg Q4H PRN IVP For Pain 08/14/17 15:45 08/21/17 15:44 Nitroglycerin (Ntg) 0.4 mg Q5M X 3 DOSES PRN SL Prn Chest Pain 08/06/17 22:45 09/05/17 22:44 Ondansetron HCl (Zofran) 4 mg Q6H PRN IVP Nausea & Vomiting 08/06/17 22:45 09/05/17 22:44 Pantoprazole (Protonix) 40 mg DAILY ORAL 08/09/17 16:30 2/28/18 16:29 08/16/17 08:34 Polyethylene Glycol (Miralax) 17 gm HSPRN PRN ORAL Constipation 08/06/17 22:45 09/05/17 22:44 Sodium Citrate (Bicitra) 30 ml BID ORAL 08/16/17 18:00 09/09/17 11:59 08/16/17 17:10 Tamsulosin HCl (Flomax) 0.4 mg Q12HR ORAL 08/07/17 21:00 09/06/17 20:59 08/16/17 08:34 Temazepam (Restoril) 15 mg HSPRN PRN ORAL Insomnia 08/14/17 15:45 08/21/17 15:44 Item Value Date Time Bedside Blood Glucose 343 mg/dl H 08/16/17 1715 Bedside Blood Glucose 76 mg/dl 08/16/17 1130 Bedside Blood Glucose 134 mg/dl H 08/16/17 0841 Bedside Blood Glucose 134 mg/dl H 08/16/17 0630 MALKA SHERIFF Aug 16, 2017 19:44
[2017-08-16 20:00] VITALS: BP 107/74
[2017-08-16] MEDS: Epogen (for non ESRD use) SUBQ SCH (21:03)
--- NOTE | 2017-08-16 22:15 | Progress Note ---
DATE: 08/16/2017 SUBJECTIVE: The patient is having no behavior issues. Calm and cooperative. Complained of depressed mood today. No behavior issues. The patient is pleasant. MENTAL STATUS EXAMINATION: The patient is alert and oriented to self, place, and situation he is in. Mood is neutral. Affect is constricted, congruent with mood. Thought process is concrete. Thought content, no suicidal or homicidal ideations. ASSESSMENT: 1. Schizoaffective disorder. 2. Depression. PLAN: We will continue current medications. Fatmata Lu M.D. DR: ДМИТРИЙ JOB#: [id number] CC:
--- NOTE | 2017-08-16 22:45 | Progress Note ---
DATE: 08/15/2017 SUBJECTIVE: The patient is pleasant and cooperative, sitting in bed, in no acute distress. Compliant with medications. No behavior issues. Mood is neutral. MENTAL STATUS EXAMINATION: The patient is alert and oriented times self, place, situation, and time. Mood is dysphoric. Affect is constricted, congruent mood. Thought process is concrete. Thought content, no suicidal or homicidal ideations. Cognition is intact. Insight and judgment is fair. ASSESSMENT: Schizoaffective disorder. PLAN: We will continue current medications. Fatmata Lu M.D. DR: TON JOB#: [id number] CC:
--- NOTE | 2017-08-16 23:00 | Consultation ---
DATE OF CONSULTATION: 08/16/2017 CARDIOLOGY CONSULTATION CONSULTING PHYSICIAN: Ronald Callejas M.D. REFERRING PHYSICIAN: Christopher Rosado M.D. REASON FOR CONSULTATION: Rule out endocarditis. HISTORY OF PRESENT ILLNESS: The patient is a 62-year-old gentleman with persistent Staph epidermidis bacteremia, which initially was suspected secondary to infected PICC line. Despite removal of PICC line, the patient remains persistently bacteremic. Cardiology consultation was requested to rule out endocarditis and consideration for transesophageal echocardiogram. The patient underwent a PICC removal on 08/09/2017. His 2D echocardiogram showed thickened mitral valve leaflets with normal excursion with no echodensity seen on the valves and ejection fraction was also within normal range. PAST MEDICAL HISTORY: 1. Hypertension. 2. Insulin-dependent diabetes. 3. History of end-stage renal disease, on hemodialysis in the past status post transplantation, has been off hemodialysis since then. 4. History of suicidal attempt in the past. 5. Anemia. 6. Colonic polyps. FAMILY HISTORY: Noncontributory. SOCIAL HISTORY: He lives in long-term. Does not smoke or drink alcohol. REVIEW OF SYSTEMS: Review of systems was performed and was negative other than what was mentioned in the history of present illness. PHYSICAL EXAMINATION: VITAL SIGNS: Blood pressure is 156/88, pulse 72, respirations 18, and temperature 97.9 degrees. HEAD AND NECK: No JVD. LUNGS: Clear. CARDIOVASCULAR: Regular S1 and S2 with no gallop or murmur. ABDOMEN: Soft. EXTREMITIES: There is no pitting edema. LABORATORY AND DIAGNOSTIC DATA: White count of 7.1, hemoglobin of 8, hematocrit 24.7, and platelet count of 244. Sodium 142, potassium 4.0, BUN of 46, creatinine of 4, and glucose of 82. ASSESSMENT AND PLAN: 1. Persistent bacteremia despite removal of the peripherally inserted central catheter line. I agree that the patient would benefit from transesophageal echocardiogram, even though the transesophageal echocardiogram did not show any evidence of vegetation. This will be scheduled accordingly. In the meantime, the patient is placed on IV antibiotics. 2. Hypertension. Continue hydralazine 25 mg every eight hours and Norvasc 5 mg b.i.d. as well as metoprolol 50 mg b.i.d. 3. End-stage renal disease with history of hemodialysis in the past and currently is status post kidney transplant. The patient is on Imuran. 4. Anemia, could be due to renal failure. Thank you very much Dr. Rosado for allowing me to participate in the care of this patient. Please do not hesitate to contact me for any questions regarding my evaluation. Ronald Callejas M.D. DR: PENELOPE JOB#: [id number] CC:
[2017-08-17] VITALS: BP 133/71
--- NOTE | 2017-08-17 00:30 | Consultation ---
DATE OF CONSULTATION: 08/16/2017 CARDIOLOGY CONSULTATION CONSULTING PHYSICIAN: Ronald Cruz M.D. REFERRING PHYSICIAN: Christopher Rosado M.D. Additional Referring Doctor, Jose Glasgow M.D. REASON FOR CONSULTATION: Evaluation and management of possible endocarditis and performing transesophageal echocardiography. HISTORY OF PRESENT ILLNESS: The patient is a very unfortunate 82-year-old gentleman, a resident of [facility], who was brought in by EMS for hyperglycemia. The patient was sent from the facility to this center for evaluation and management of hyperglycemia. In the course of hospitalization, the patient was found to have methicillin-sensitive Staphylococcus aureus, coagulase negative, therefore at request of the Infectious Disease specialist and evaluation for infective endocarditis was made. The patient was found to have fever and leukocytosis and was placed of IV antibiotics. Chest x-ray showed no acute cardiopulmonary disease. His white count was 12,000, and creatinine of 4.8. The patient did not want hemodialysis. PAST MEDICAL HISTORY: Significant for hypertension, asthma, chronic kidney disease, not wished to be dialyzed, history of renal transplant, history of cerebrovascular accident, history of psychiatric disorder with suicidal attempts in the past, and history of encephalopathy. REVIEW OF SYSTEMS: HEENT: Denies any headache, diplopia, or blurred vision. CONSTITUTIONAL: He had some fever, but no chills. There are no night sweats or weight loss. CARDIOVASCULAR: Denies any chest pain, shortness of breath, PND, orthopnea, or leg swelling. PULMONARY: Denies any cough, hemoptysis, or wheezing. GASTROINTESTINAL: Denies any nausea, vomiting, diarrhea, constipation, abdominal pain, or GI bleed. GENITOURINARY: History of renal transplant. Denies any hematuria or dysuria. NEUROLOGIC: History of cerebrovascular accident with no residual deficit. Denies any altered speech, sensory or motor deficits. MEDICATIONS: List of medications from the [facility] reviewed and reconciled. SOCIAL HISTORY: Denies any tobacco, alcohol, or illicit drug use. Resident of group home/[facility]. ALLERGIES: To cefepime. PHYSICAL EXAMINATION: VITAL SIGNS: Blood pressure was 170/87, temperature 100.4 degrees Fahrenheit, pulse of 86, and respirations of 18. GENERAL: The patient is a very unfortunate 62-year-old male, in no apparent respiratory distress. Alert and oriented x4. HEENT: Atraumatic, normocephalic. Anicteric. Pupils are equal, round, and reactive to light and accommodation. Extraocular muscles are intact. NECK: JVP less than 5 cm. No carotid bruits. Carotid upstrokes 2+ bilaterally. CARDIOVASCULAR: Normal S1, S2. Regular rate and rhythm. No murmurs, gallops, or rubs. PMI is at fourth intercostal space in the midclavicular line. LUNGS: Clear to auscultation bilaterally. ABDOMEN: Soft, nontender, and nondistended. No hepatosplenomegaly. Positive bowel sounds. EXTREMITIES: Multiple ulcerations throughout the limbs, some of them areas of denuded skin with presence of a dry blood as well as fresh blood. LABORATORY DATA: Laboratory findings, troponin I was 0.002. WBC is 12.4, hemoglobin was 10.2, hematocrit of 32.6%, and platelet count is 230. Sodium was 134, potassium was 5.0, chloride 101, bicarbonate , BUN is 69, creatinine 4.8, glucose is 492, and calcium is 8.8. Albumin 3.2, total cholesterol 117, LDL 67, HDL 33, triglyceride level is 114. ASSESSMENT AND PLAN: The patient is a very unfortunate 62-year-old gentleman, seen in Cardiology consultation at request of Dr. Glasgow and Dr. Rosado. 1. Methicillin-sensitive Staphylococcus aureus coagulase negative on the microbiology. I have discussed the risks, benefits, and alternatives of the procedure of transesophageal echocardiography to assess cardiac valvular structure and to rule out vegetations with the patient. He understands the nature of the procedure and the indications and is willing to sign the informed consent papers. We will schedule him for at 8 o'clock for the above procedure. 2. History of Enterococcus infection. 3. End-stage renal disease, history of renal transplant. 4. History of hypertension. I would like to thank, Dr. Glasgow and Dr. Rosado, for the courtesy of this consultation. Ronald Cruz M.D. DR: FELIZ JOB#: [id number] CC:
[2017-08-17 04:48] VITALS: BP 135/65
[2017-08-17] MEDS: HydrALAZINE 25mg tab ORAL SCH ×3 (06:09→22:26)
[2017-08-17] MEDS: NovoLOG Insulin Flexpen SUBQ SCH ×7 (06:10→21:17)
--- NOTE | 2017-08-17 07:00 | Geriatric Medicine Prog Note ---
DATE: 08/16/2017 ENDOCRINOLOGY PROGRESS NOTE . SUBJECTIVE: The patient became hyperglycemic after drinking juice. Not having his Accu-Chek done. OBJECTIVE: VITAL SIGNS: Blood pressure 147/78, pulse 90, respiratory rate 20, and temperature 98.6 degrees. RESPIRATORY: Clear. CVS: Regular. LABORATORY DATA: Glucose . PLAN: Continue detemir insulin 10 units q.12 h. and NovoLog 5 units t.i.d. before meals. Sebastian Mc M.D. DR: DEAN JOB#: [id number] CC:
[2017-08-17 08:00] VITALS: BP 140/87
[2017-08-17] MEDS: Sodium Citrate 30ml ORAL SCH ×2 (09:51→17:25)
[2017-08-17] MEDS: azaTHIOprine 50 MG TAB ORAL SCH (09:52)
[2017-08-17] MEDS: Docusate 100mg cap ORAL SCH ×3 (09:52→17:25)
[2017-08-17] MEDS: Tamsulosin 0.4mg cap ORAL SCH ×2 (09:53→21:14)
[2017-08-17] MEDS: DULoxetine 30mg cap ORAL SCH (09:53)
[2017-08-17] MEDS: Metoprolol Tartrate 50mg tab ORAL SCH ×2 (09:53→21:15)
[2017-08-17] MEDS: Levemir Flexpen SUBQ SCH ×2 (09:54→17:28)
[2017-08-17] MEDS: Heparin 5000 units/ml inj SUBQ SCH ×2 (09:55→21:16)
--- NOTE | 2017-08-17 10:00 | Cardiac Electrophysiology PN ---
Assessment/Plan Assessment/Plan 1. Persistent bacteremia despite removal of the peripherally inserted central catheter line. Patient scheduled for transesophageal echocardiogram by Dr Cruz on 2. Hypertension. Continue hydralazine 25 mg every eight hours, Norvasc 5 mg b.i.d. as well as metoprolol 50 mg b.i.d. 3. End-stage renal disease with history of hemodialysis in the past and currently is status post kidney transplant. The patient is on Imuran. 4. Anemia, could be due to renal failure. MÓNICA RN and Dr Cruz Subjective Subjective No chest pain or SOB. RN at bedside. Scheduled for AMY on Objective Last 24 Hour Vital Signs Date Time Temp Pulse Resp B/P (MAP) Pulse Ox O2 Delivery O2 Flow Rate FiO2 08/17/17 09:53 80 140/87 08/17/17 09:52 80 140/87 08/17/17 08:00 97.9 80 20 140/87 100 08/17/17 06:09 136/94 08/17/17 04:48 98.4 72 20 135/65 98 08/17/17 00:00 97.9 73 20 133/71 100 08/16/17 22:00 142/60 08/16/17 21:00 77 167/75 08/16/17 20:00 98.1 100 21 107/74 100 08/16/17 17:10 76 158/86 08/16/17 16:00 96.3 76 20 158/86 97 08/16/17 14:53 154/75 08/16/17 12:00 97.7 67 20 154/75 97 Room Air Intake and Output 08/16/17 08/17/17 19:00 07:00 Intake Total 360 ml Output Total 1600 ml Balance 360 ml -1600 ml Intake Oral 360 ml Output Urine Total 1600 ml # Voids 3 4 # Bowel Movements 1 Objective HEAD AND NECK: No JVD. LUNGS: Clear. CARDIOVASCULAR: Regular S1 and S2 with no gallop or murmur. ABDOMEN: Soft. EXTREMITIES: There is no pitting edema. RED CAMARENA Aug 17, 2017 10:00
[2017-08-17 10:35] LABS: BASOPHILS % (AUTO) 1.2 % (0.0-2.0); EOSINOPHILS % (AUTO) 3.7 % (0.0-3.0); HEMATOCRIT 27.4 % (42.0-52.0); HEMOGLOBIN 8.8 G/DL (14.2-18.0); LYMPHOCYTES % (AUTO) 14.7 % (20.0-45.0); MEAN CORPUSCULAR VOLUME 100 FL (80-99); MONOCYTES % (AUTO) 8.6 % (1.0-10.0); NEUTROPHILS % (AUTO) 71.8 % (45.0-75.0); PLATELET COUNT 227 K/UL (150-450); RED BLOOD COUNT 2.74 M/UL (4.70-6.10); RED CELL DISTRIBUTION WIDTH 17.1 % (11.6-14.8); WHITE BLOOD COUNT 7.8 K/UL (4.8-10.8)
[2017-08-17 11:08] LABS: ALANINE AMINOTRANSFERASE 27 U/L (12-78); ALBUMIN 2.5 G/DL (3.4-5.0); ALBUMIN/GLOBULIN RATIO 0.7 (1.0-2.7); ALKALINE PHOSPHATASE 77 U/L (46-116); ANION GAP 8 mmol/L (5-15); ASPARTATE AMINO TRANSFERASE 27 U/L (15-37); BILIRUBIN,TOTAL 0.3 MG/DL (0.2-1.0); BLOOD UREA NITROGEN 48 mg/dL (7-18); CALCIUM 8.8 MG/DL (8.5-10.1); CARBON DIOXIDE 21 MMOL/L (21-32); CHLORIDE 109 MMOL/L (98-107); CREATININE 4.1 MG/DL (0.55-1.30); PHOSPHORUS 2.6 MG/DL (2.5-4.9); POTASSIUM 4.3 MMOL/L (3.5-5.1); SODIUM 138 MMOL/L (136-145)
[2017-08-17 12:00] VITALS: BP 159/76
--- NOTE | 2017-08-17 13:08 | Nephrology Progress Note ---
Assessment/Plan Problem List: (1) CKD (chronic kidney disease), stage III Assessment: cr at lowest 3.9 - 4 (2) Uncontrolled diabetes mellitus (3) BPH (benign prostatic hyperplasia) (4) Anemia (5) Nephropathy, diabetic (6) HTN (hypertension) Assessment Cr low 4.1 has CKD and was admitted for DM OOC BS is being managed by Endo Also has Bacteremia due to Picc line insertion at [facility] (1) CKD (chronic kidney disease), stage III, superimposed acute- Cr unchanged since last admit (2) Dehydration- Partly due to hyperglycemia (3) Hyperglycemia due to type 2 diabetes mellitus (4) BPH (benign prostatic hypertrophy) (5) Nephropathy, diabetic (6) History of simultaneous kidney and pancreas transplant (7) UTI (urinary tract infection) (8) Anemia of CKD Plan Plan: stop hydrate- add hydralazine for high BP BP and BS control- Flomax PO- monitor renal parameters Anemia [place] EPO SQ down on Bicitra Antibiotics for bacterimia ? Dc planning previous workup: 2D Echo: Left ventricular ejection fraction estimated to be 55 %. No evidence of left ventricular hypertrophy. Subjective ROS Limited/Unobtainable: No Constitutional: Reports: malaise Objective Objective Last 24 Hour Vital Signs Date Time Temp Pulse Resp B/P (MAP) Pulse Ox O2 Delivery O2 Flow Rate FiO2 08/17/17 09:53 80 140/87 08/17/17 09:52 80 140/87 08/17/17 08:00 97.9 80 20 140/87 100 08/17/17 06:09 136/94 08/17/17 04:48 98.4 72 20 135/65 98 08/17/17 00:00 97.9 73 20 133/71 100 08/16/17 22:00 142/60 08/16/17 21:00 77 167/75 08/16/17 20:00 98.1 100 21 107/74 100 08/16/17 17:10 76 158/86 08/16/17 16:00 96.3 76 20 158/86 97 08/16/17 14:53 154/75 Intake and Output 08/16/17 08/17/17 19:00 07:00 Intake Total 360 ml Output Total 1600 ml Balance 360 ml -1600 ml Intake Oral 360 ml Output Urine Total 1600 ml # Voids 3 4 # Bowel Movements 1 Laboratory Tests 08/17/17 10:05: White Blood Count 7.8, Red Blood Count 2.74L, Hemoglobin 8.8L, Hematocrit 27.4L , Mean Corpuscular Volume 100H, Mean Corpuscular Hemoglobin 32.3H, Mean Corpuscular Hemoglobin Concent 32.3, Red Cell Distribution Width 17.1H, Platelet Count 227, Mean Platelet Volume 6.7, Neutrophils (%) (Auto) 71.8, Lymphocytes (%) (Auto) 14.7L, Monocytes (%) (Auto) 8.6, Eosinophils (%) (Auto) 3.7H, Basophils (%) (Auto) 1.2, Sodium Level 138, Potassium Level 4.3, Chloride Level 109H, Carbon Dioxide Level 21, Anion Gap 8, Blood Urea Nitrogen 48H, Creatinine 4.1H, Estimat Glomerular Filtration Rate 14.8, Glucose Level 265#H, Uric Acid 6.5, Calcium Level 8.8, Phosphorus Level 2.6, Magnesium Level 1.6L, Total Bilirubin 0.3, Aspartate Amino Transf (AST/SGOT) 27, Alanine Aminotransferase (ALT/SGPT) 27, Alkaline Phosphatase 77, C-Reactive Protein, Quantitative 0.9, Pro-B-Type Natriuretic Peptide 2086H, Total Protein 6.0L, Albumin 2.5L, Globulin 3.5, Albumin/Globulin Ratio 0.7L Height (Feet): 5 Height (Inches): 8.00 Weight (Pounds): 209 General Appearance: no apparent distress Objective no change BERT ALONSO Aug 17, 2017 13:08
--- NOTE | 2017-08-17 13:10 | Infectious Diseases Prog Note ---
Assessment/Plan Assessment/Plan ASSESSMENT: The patient is a 62-year-old male with: Persistent Staph Epi bacteremia- initially suspected 2ry to infected PICC line, however patient persist bacteremic despite line removal, there for suspicion for occult source or endovascular source- r/o endocarditis -s/p PICC removal 08/09; cath cx NTD -08/06 Bcx / Staph epi/MRSE (labeld peripheral), Bcx 08/07 NTD, 08/08 (line) 2/ 2 MRSE; 08/09/ GPC clusters (however line was still in place); Bcx 08/11 2/4 S. epi; 2/2 NTD -TTE: Thickened mitral valve leaflets with normal excursion. Mild mitral annulus and aortic root calcification. Pulmonic valve is well visualized. Normal tricuspid valve structure. No echodensity is seen on valves (vegetation) , consider AMY if clinically indicated. Low-grade fever/leukocytosis- resolved -u/a no pyuria, ucx 10-20k mixed gram positive -CXR no acute disease Uncontrolled diabetes, probably due to sepsis. 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 -History of renal and pancreas transplant about 10 years ago. 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 -07/15 E fecalis (Amp R, Vanco S) - History of suicidal attempts in the past. -. History of myocardial infarction. -. History of anemia. -. History of colon polyps. PLAN: -Continue daptomycin #11 for S. epi bacteremia; duration to follow pending AMY, but minimum of 4 weeks from 1st of neg bcx. -weekly CPK -08/09 SP Aztreonam #3 -AMY to eval for endocarditis -f/u repeat 2 sets of Bcx -PICC line tomorrow if Bcx remains neg and patient remains afebrile - Monitor CBC/BMP, temperatuers -aspiration precautions Thank you, Dr. Delgado, for allowing me to participate in the care of this patient. I will follow the patient with you during this hospitalization. Discussed with RN Subjective Allergies: Coded Allergies: CEFEPIME (Verified Allergy, Intermediate, Rash, 01/23/13) Subjective afebrile no leukocytosis repeat Bcx 2/3 NTD awaiting AMY Objective Vital Signs Last 24 Hour Vital Signs Date Time Temp Pulse Resp B/P (MAP) Pulse Ox O2 Delivery O2 Flow Rate FiO2 08/17/17 09:53 80 140/87 08/17/17 09:52 80 140/87 08/17/17 08:00 97.9 80 20 140/87 100 08/17/17 06:09 136/94 08/17/17 04:48 98.4 72 20 135/65 98 08/17/17 00:00 97.9 73 20 133/71 100 08/16/17 22:00 142/60 08/16/17 21:00 77 167/75 08/16/17 20:00 98.1 100 21 107/74 100 08/16/17 17:10 76 158/86 08/16/17 16:00 96.3 76 20 158/86 97 08/16/17 14:53 154/75 Height (Feet): 5 Height (Inches): 8.00 Weight (Pounds): 209 Objective HEENT: No pale conjunctivae. No icterus. CHEST: Clear. HEART: S1 and S2. ABDOMEN: Soft, obese, nontender. EXTREMITIES: picc line removed, no rash NEUROLOGIC: Awake and alert. SKIN: The patient has scattered scratch velasquez on the upper and lower extremities. Laboratory Tests Test 08/17/17 10:05 White Blood Count 7.8 K/UL (4.8-10.8) Red Blood Count 2.74 M/UL (4.70-6.10) L Hemoglobin 8.8 G/DL (14.2-18.0) L Hematocrit 27.4 % (42.0-52.0) L Mean Corpuscular Volume 100 FL (80-99) H Mean Corpuscular Hemoglobin 32.3 PG (27.0-31.0) H Mean Corpuscular Hemoglobin Concent 32.3 G/DL (32.0-36.0) Red Cell Distribution Width 17.1 % (11.6-14.8) H Platelet Count 227 K/UL (150-450) Mean Platelet Volume 6.7 FL (6.5-10.1) Neutrophils (%) (Auto) 71.8 % (45.0-75.0) Lymphocytes (%) (Auto) 14.7 % (20.0-45.0) L Monocytes (%) (Auto) 8.6 % (1.0-10.0) Eosinophils (%) (Auto) 3.7 % (0.0-3.0) H Basophils (%) (Auto) 1.2 % (0.0-2.0) Sodium Level 138 MMOL/L (136-145) Potassium Level 4.3 MMOL/L (3.5-5.1) Chloride Level 109 MMOL/L (98-107) H Carbon Dioxide Level 21 MMOL/L (21-32) Anion Gap 8 mmol/L (5-15) Blood Urea Nitrogen 48 mg/dL (7-18) H Creatinine 4.1 MG/DL (0.55-1.30) H Estimat Glomerular Filtration Rate 14.8 mL/min (>60) Glucose Level 265 MG/DL (74-106) #H Uric Acid 6.5 MG/DL (2.6-7.2) Calcium Level 8.8 MG/DL (8.5-10.1) Phosphorus Level 2.6 MG/DL (2.5-4.9) Magnesium Level 1.6 MG/DL (1.8-2.4) L Total Bilirubin 0.3 MG/DL (0.2-1.0) Aspartate Amino Transf (AST/SGOT) 27 U/L (15-37) Alanine Aminotransferase (ALT/SGPT) 27 U/L (12-78) Alkaline Phosphatase 77 U/L (46-116) C-Reactive Protein, Quantitative 0.9 mg/dL (0.00-0.90) Pro-B-Type Natriuretic Peptide 2086 pg/mL (0-125) H Total Protein 6.0 G/DL (6.4-8.2) L Albumin 2.5 G/DL (3.4-5.0) L Globulin 3.5 g/dL Albumin/Globulin Ratio 0.7 (1.0-2.7) L Current Medications Medications (Trade) Dose Ordered Sig/Dunia Route PRN Reason Start Time Stop Time Status Last Admin Dose Admin Acetaminophen (Tylenol) 650 mg Q4H PRN ORAL fever 08/06/17 22:45 09/05/17 22:44 08/07/17 10:56 Amlodipine Besylate (Norvasc) 5 mg BID ORAL 08/09/17 18:00 09/06/17 08:59 08/17/17 09:52 Azathioprine (Imuran) 50 mg DAILY ORAL 08/07/17 09:00 09/06/17 08:59 08/17/17 09:52 Clonidine HCl (Catapres Tab) 0.1 mg Q4H PRN ORAL sbp more than 160 08/06/17 22:45 09/05/17 22:44 08/12/17 11:57 Daptomycin 500 mg/ Sodium Chloride 55 ml @ 110 mls/hr Q48H IV 08/15/17 14:00 08/22/17 13:59 08/15/17 15:27 Dextrose (Dextrose 50%) STAT PRN IV Hypoglycemia 08/08/17 09:00 09/07/17 08:59 08/10/17 18:27 Docusate Sodium (Colace) 100 mg TID ORAL 08/09/17 18:00 09/08/17 17:59 08/17/17 09:52 Duloxetine HCl (Cymbalta) 30 mg DAILY ORAL 08/07/17 09:00 09/06/17 08:59 08/17/17 09:53 Epoetin Jose (Procrit (for non ESRD use)) 10,000 units WED-WED-WED SUBQ 08/11/17 21:00 09/10/17 20:59 08/16/17 21:03 Finasteride (Proscar) 5 mg DAILY ORAL 08/07/17 09:00 09/06/17 08:59 08/17/17 09:52 Heparin Sodium (Porcine) (Heparin 5000 units/ml) 5,000 units EVERY 12 HOURS SUBQ 08/07/17 09:00 09/06/17 08:59 08/17/17 09:55 Hydralazine HCl (Apresoline) 25 mg Q8HR ORAL 08/16/17 14:00 09/15/17 13:59 08/17/17 06:09 Insulin Aspart (NovoLOG) BEFORE MEALS AND HS SUBQ 08/10/17 21:00 09/09/17 20:59 08/17/17 12:43 Insulin Aspart (NovoLOG) 5 units NOVOTIAC SUBQ 08/12/17 06:30 09/11/17 06:29 08/17/17 12:42 Insulin Detemir (Levemir) 10 units BID SUBQ 08/09/17 21:00 09/08/17 20:59 08/17/17 09:54 Metoprolol Tartrate (Lopressor) 50 mg Q12HR ORAL 08/07/17 21:00 09/06/17 20:59 08/17/17 09:53 Morphine Sulfate (Morphine Sulfate) 2 mg Q4H PRN IVP For Pain 08/14/17 15:45 08/21/17 15:44 Nitroglycerin (Ntg) 0.4 mg Q5M X 3 DOSES PRN SL Prn Chest Pain 08/06/17 22:45 09/05/17 22:44 Ondansetron HCl (Zofran) 4 mg Q6H PRN IVP Nausea & Vomiting 08/06/17 22:45 09/05/17 22:44 Pantoprazole (Protonix) 40 mg DAILY ORAL 08/09/17 16:30 09/08/17 16:29 08/17/17 09:52 Polyethylene Glycol (Miralax) 17 gm HSPRN PRN ORAL Constipation 08/06/17 22:45 09/05/17 22:44 Sodium Citrate (Bicitra) 30 ml BID ORAL 08/16/17 18:00 09/09/17 11:59 08/17/17 09:51 Tamsulosin HCl (Flomax) 0.4 mg Q12HR ORAL 08/07/17 21:00 09/06/17 20:59 08/17/17 09:53 Temazepam (Restoril) 15 mg HSPRN PRN ORAL Insomnia 08/14/17 15:45 08/21/17 15:44 Monique Read M.D. Aug 17, 2017 13:10
[2017-08-17] MEDS: DAPTOmycin 500 MG in NS 55 ML IV SCH (14:33)
--- NOTE | 2017-08-17 15:57 | Pulmonology Progress Note ---
Assessment/Plan Problems: (1) Bacteremia (2) Uncontrolled diabetes mellitus (3) Anemia in chronic kidney disease (4) Psychiatric disturbance (5) Anemia (6) Renal transplant recipient Assessment/Plan improving all reviewed sliding scale iv fluids psych f/u diabetic diet f/u blood culture sensitivities f/u ID recommendations, on Daptomycin PICC line in am continue abx AMY b/o persistent endocarditis, on Subjective ROS Limited/Unobtainable: No Constitutional: Reports: no symptoms HEENT: Repors: no symptoms Allergies: Coded Allergies: CEFEPIME (Verified Allergy, Intermediate, Rash, 01/23/13) Objective Last 24 Hour Vital Signs Date Time Temp Pulse Resp B/P (MAP) Pulse Ox O2 Delivery O2 Flow Rate FiO2 08/17/17 14:33 159/76 08/17/17 12:00 97.5 78 20 159/76 100 08/17/17 09:53 80 140/87 08/17/17 09:52 80 140/87 08/17/17 08:00 97.9 80 20 140/87 100 08/17/17 06:09 136/94 08/17/17 04:48 98.4 72 20 135/65 98 08/17/17 00:00 97.9 73 20 133/71 100 08/16/17 22:00 142/60 08/16/17 21:00 77 167/75 08/16/17 20:00 98.1 100 21 107/74 100 08/16/17 17:10 76 158/86 08/16/17 16:00 96.3 76 20 158/86 97 Intake and Output 08/16/17 08/17/17 19:00 07:00 Intake Total 360 ml Output Total 1600 ml Balance 360 ml -1600 ml Intake Oral 360 ml Output Urine Total 1600 ml # Voids 3 4 # Bowel Movements 1 Objective General Appearance: WN Lines, tubes and drains: peripheral HEENT: normocephalic, atraumatic Neck: non-tender, normal alignment Respiratory/Chest: chest wall non-tender, lungs clear Cardiovascular/Chest: normal peripheral pulses, normal rate Abdomen: normal bowel sounds, non tender Genitourinary/Rectal: normal genital exam, normal rectal exam Skin Exam: normal pigmentation Laboratory Tests 08/17/17 10:05: White Blood Count 7.8, Red Blood Count 2.74L, Hemoglobin 8.8L, Hematocrit 27.4L , Mean Corpuscular Volume 100H, Mean Corpuscular Hemoglobin 32.3H, Mean Corpuscular Hemoglobin Concent 32.3, Red Cell Distribution Width 17.1H, Platelet Count 227, Mean Platelet Volume 6.7, Neutrophils (%) (Auto) 71.8, Lymphocytes (%) (Auto) 14.7L, Monocytes (%) (Auto) 8.6, Eosinophils (%) (Auto) 3.7H, Basophils (%) (Auto) 1.2, Sodium Level 138, Potassium Level 4.3, Chloride Level 109H, Carbon Dioxide Level 21, Anion Gap 8, Blood Urea Nitrogen 48H, Creatinine 4.1H, Estimat Glomerular Filtration Rate 14.8, Glucose Level 265#H, Uric Acid 6.5, Calcium Level 8.8, Phosphorus Level 2.6, Magnesium Level 1.6L, Total Bilirubin 0.3, Aspartate Amino Transf (AST/SGOT) 27, Alanine Aminotransferase (ALT/SGPT) 27, Alkaline Phosphatase 77, C-Reactive Protein, Quantitative 0.9, Pro-B-Type Natriuretic Peptide 2086H, Total Protein 6.0L, Albumin 2.5L, Globulin 3.5, Albumin/Globulin Ratio 0.7L Current Medications Medications (Trade) Dose Ordered Sig/Dunia Route PRN Reason Start Time Stop Time Status Last Admin Dose Admin Acetaminophen (Tylenol) 650 mg Q4H PRN ORAL fever 08/06/17 22:45 09/05/17 22:44 08/07/17 10:56 Amlodipine Besylate (Norvasc) 5 mg BID ORAL 08/09/17 18:00 09/06/17 08:59 08/17/17 09:52 Azathioprine (Imuran) 50 mg DAILY ORAL 08/07/17 09:00 09/06/17 08:59 08/17/17 09:52 Chlorhexidine Gluconate (Eloisa-Hex 2%) 1 applic DAILY@2000 TOPIC 08/17/17 20:00 09/16/17 19:59 Clonidine HCl (Catapres Tab) 0.1 mg Q4H PRN ORAL sbp more than 160 08/06/17 22:45 09/05/17 22:44 08/12/17 11:57 Daptomycin 500 mg/ Sodium Chloride 55 ml @ 110 mls/hr Q48H IV 08/15/17 14:00 08/22/17 13:59 08/17/17 14:33 Dextrose (Dextrose 50%) STAT PRN IV Hypoglycemia 08/08/17 09:00 09/07/17 08:59 08/10/17 18:27 Docusate Sodium (Colace) 100 mg TID ORAL 08/09/17 18:00 09/08/17 17:59 08/17/17 14:33 Duloxetine HCl (Cymbalta) 30 mg DAILY ORAL 08/07/17 09:00 09/06/17 08:59 08/17/17 09:53 Epoetin Jose (Procrit (for non ESRD use)) 10,000 units WED-WED-WED SUBQ 08/11/17 21:00 09/10/17 20:59 08/16/17 21:03 Finasteride (Proscar) 5 mg DAILY ORAL 08/07/17 09:00 09/06/17 08:59 08/17/17 09:52 Heparin Sodium (Porcine) (Heparin 5000 units/ml) 5,000 units EVERY 12 HOURS SUBQ 08/07/17 09:00 09/06/17 08:59 08/17/17 09:55 Hydralazine HCl (Apresoline) 25 mg Q8HR ORAL 08/16/17 14:00 09/15/17 13:59 08/17/17 14:33 Insulin Aspart (NovoLOG) BEFORE MEALS AND HS SUBQ 08/10/17 21:00 09/09/17 20:59 08/17/17 12:43 Insulin Aspart (NovoLOG) 5 units NOVOTIAC SUBQ 08/12/17 06:30 09/11/17 06:29 08/17/17 12:42 Insulin Detemir (Levemir) 10 units BID SUBQ 08/09/17 21:00 09/08/17 20:59 08/17/17 09:54 Metoprolol Tartrate (Lopressor) 50 mg Q12HR ORAL 08/07/17 21:00 09/06/17 20:59 08/17/17 09:53 Morphine Sulfate (Morphine Sulfate) 2 mg Q4H PRN IVP For Pain 08/14/17 15:45 08/21/17 15:44 Nitroglycerin (Ntg) 0.4 mg Q5M X 3 DOSES PRN SL Prn Chest Pain 08/06/17 22:45 09/05/17 22:44 Ondansetron HCl (Zofran) 4 mg Q6H PRN IVP Nausea & Vomiting 08/06/17 22:45 09/05/17 22:44 Pantoprazole (Protonix) 40 mg DAILY ORAL 08/09/17 16:30 09/08/17 16:29 08/17/17 09:52 Polyethylene Glycol (Miralax) 17 gm HSPRN PRN ORAL Constipation 08/06/17 22:45 09/05/17 22:44 Sodium Citrate (Bicitra) 30 ml BID ORAL 08/16/17 18:00 09/09/17 11:59 08/17/17 09:51 Tamsulosin HCl (Flomax) 0.4 mg Q12HR ORAL 08/07/17 21:00 09/06/17 20:59 08/17/17 09:53 Temazepam (Restoril) 15 mg HSPRN PRN ORAL Insomnia 08/14/17 15:45 08/21/17 15:44 MARGO GALLEGOS Aug 17, 2017 15:57
[2017-08-17 16:00] VITALS: BP 155/84
--- NOTE | 2017-08-17 18:02 | Internal Med Progress Note ---
Subjective Date of Service: Aug 17, 2017 Physician Name GlasgowDee Attending Physician Christopher Rosado MD Current Medications Medications (Trade) Dose Ordered Sig/Dunia Route PRN Reason Start Time Stop Time Status Last Admin Dose Admin Acetaminophen (Tylenol) 650 mg Q4H PRN ORAL fever 08/06/17 22:45 09/05/17 22:44 08/07/17 10:56 Amlodipine Besylate (Norvasc) 5 mg BID ORAL 08/09/17 18:00 09/06/17 08:59 08/17/17 17:25 Azathioprine (Imuran) 50 mg DAILY ORAL 08/07/17 09:00 09/06/17 08:59 08/17/17 09:52 Chlorhexidine Gluconate (Eloisa-Hex 2%) 1 applic DAILY@2000 TOPIC 08/17/17 20:00 09/16/17 19:59 Clonidine HCl (Catapres Tab) 0.1 mg Q4H PRN ORAL sbp more than 160 08/06/17 22:45 09/05/17 22:44 08/12/17 11:57 Daptomycin 500 mg/ Sodium Chloride 55 ml @ 110 mls/hr Q48H IV 08/15/17 14:00 08/22/17 13:59 08/17/17 14:33 Dextrose (Dextrose 50%) STAT PRN IV Hypoglycemia 08/08/17 09:00 09/07/17 08:59 08/10/17 18:27 Docusate Sodium (Colace) 100 mg TID ORAL 08/09/17 18:00 09/08/17 17:59 08/17/17 17:25 Duloxetine HCl (Cymbalta) 30 mg DAILY ORAL 08/07/17 09:00 09/06/17 08:59 08/17/17 09:53 Epoetin Jose (Procrit (for non ESRD use)) 10,000 units MON-WED-WED SUBQ 08/11/17 21:00 09/10/17 20:59 08/16/17 21:03 Finasteride (Proscar) 5 mg DAILY ORAL 08/07/17 09:00 09/06/17 08:59 08/17/17 09:52 Heparin Sodium (Porcine) (Heparin 5000 units/ml) 5,000 units EVERY 12 HOURS SUBQ 08/07/17 09:00 09/06/17 08:59 08/17/17 09:55 Hydralazine HCl (Apresoline) 25 mg Q8HR ORAL 08/16/17 14:00 09/15/17 13:59 08/17/17 14:33 Insulin Aspart (NovoLOG) BEFORE MEALS AND HS SUBQ 08/10/17 21:00 09/09/17 20:59 08/17/17 17:29 Insulin Aspart (NovoLOG) 5 units NOVOTIAC SUBQ 08/12/17 06:30 09/11/17 06:29 08/17/17 17:28 Insulin Detemir (Levemir) 10 units BID SUBQ 08/09/17 21:00 09/08/17 20:59 08/17/17 17:28 Metoprolol Tartrate (Lopressor) 50 mg Q12HR ORAL 08/07/17 21:00 09/06/17 20:59 08/17/17 09:53 Morphine Sulfate (Morphine Sulfate) 2 mg Q4H PRN IVP For Pain 08/14/17 15:45 08/21/17 15:44 Nitroglycerin (Ntg) 0.4 mg Q5M X 3 DOSES PRN SL Prn Chest Pain 08/06/17 22:45 09/05/17 22:44 Ondansetron HCl (Zofran) 4 mg Q6H PRN IVP Nausea & Vomiting 08/06/17 22:45 09/05/17 22:44 Pantoprazole (Protonix) 40 mg DAILY ORAL 08/09/17 16:30 09/08/17 16:29 08/17/17 09:52 Polyethylene Glycol (Miralax) 17 gm HSPRN PRN ORAL Constipation 08/06/17 22:45 09/05/17 22:44 Sodium Citrate (Bicitra) 30 ml BID ORAL 08/16/17 18:00 09/09/17 11:59 08/17/17 17:25 Tamsulosin HCl (Flomax) 0.4 mg Q12HR ORAL 08/07/17 21:00 09/06/17 20:59 08/17/17 09:53 Temazepam (Restoril) 15 mg HSPRN PRN ORAL Insomnia 08/14/17 15:45 08/21/17 15:44 Allergies: Coded Allergies: CEFEPIME (Verified Allergy, Intermediate, Rash, 7/15/13) ROS Limited/Unobtainable: No Constitutional: Reports: no symptoms HEENT: Reports: no symptoms Cardiovascular: Reports: no symptoms Respiratory: Reports: no symptoms Gastrointestinal/Abdominal: Reports: no symptoms Genitourinary: Reports: no symptoms Neurologic/Psychiatric: Reports: no symptoms Subjective 62 YO M admitted with hyperglycemia. Now sepsis. Cover for Int Pierre-Dr Rosado.. Await transesophageal echocardiogram scheduled for 08/19/17 Objective Last Vital Signs Date Time Temp Pulse Resp B/P (MAP) Pulse Ox O2 Delivery O2 Flow Rate FiO2 08/17/17 17:25 70 155/84 08/17/17 16:00 97.7 20 98 08/16/17 12:00 Room Air 08/12/17 18:46 21 Laboratory Tests Test 08/17/17 10:05 White Blood Count 7.8 K/UL (4.8-10.8) Red Blood Count 2.74 M/UL (4.70-6.10) L Hemoglobin 8.8 G/DL (14.2-18.0) L Hematocrit 27.4 % (42.0-52.0) L Mean Corpuscular Volume 100 FL (80-99) H Mean Corpuscular Hemoglobin 32.3 PG (27.0-31.0) H Mean Corpuscular Hemoglobin Concent 32.3 G/DL (32.0-36.0) Red Cell Distribution Width 17.1 % (11.6-14.8) H Platelet Count 227 K/UL (150-450) Mean Platelet Volume 6.7 FL (6.5-10.1) Neutrophils (%) (Auto) 71.8 % (45.0-75.0) Lymphocytes (%) (Auto) 14.7 % (20.0-45.0) L Monocytes (%) (Auto) 8.6 % (1.0-10.0) Eosinophils (%) (Auto) 3.7 % (0.0-3.0) H Basophils (%) (Auto) 1.2 % (0.0-2.0) Sodium Level 138 MMOL/L (136-145) Potassium Level 4.3 MMOL/L (3.5-5.1) Chloride Level 109 MMOL/L (98-107) H Carbon Dioxide Level 21 MMOL/L (21-32) Anion Gap 8 mmol/L (5-15) Blood Urea Nitrogen 48 mg/dL (7-18) H Creatinine 4.1 MG/DL (0.55-1.30) H Estimat Glomerular Filtration Rate 14.8 mL/min (>60) Glucose Level 265 MG/DL (74-106) #H Uric Acid 6.5 MG/DL (2.6-7.2) Calcium Level 8.8 MG/DL (8.5-10.1) Phosphorus Level 2.6 MG/DL (2.5-4.9) Magnesium Level 1.6 MG/DL (1.8-2.4) L Total Bilirubin 0.3 MG/DL (0.2-1.0) Aspartate Amino Transf (AST/SGOT) 27 U/L (15-37) Alanine Aminotransferase (ALT/SGPT) 27 U/L (12-78) Alkaline Phosphatase 77 U/L (46-116) C-Reactive Protein, Quantitative 0.9 mg/dL (0.00-0.90) Pro-B-Type Natriuretic Peptide 2086 pg/mL (0-125) H Total Protein 6.0 G/DL (6.4-8.2) L Albumin 2.5 G/DL (3.4-5.0) L Globulin 3.5 g/dL Albumin/Globulin Ratio 0.7 (1.0-2.7) L Intake and Output 08/16/17 08/17/17 19:00 07:00 Intake Total 360 ml Output Total 1600 ml Balance 360 ml -1600 ml Intake Oral 360 ml Output Urine Total 1600 ml # Voids 3 4 # Bowel Movements 1 Objective General Appearance: WD/WN, no apparent distress, alert Neck: non-tender, normal alignment, supple Cardiovascular: normal peripheral pulses, normal rate, regular rhythm, no gallop/murmur, no JVD Respiratory/Chest: chest wall non-tender, lungs clear, normal breath sounds, no respiratory distress, no accessory muscle use Extremities: normal range of motion, non-tender Neurologic: no motor/sensory deficits Skin: normal pigmentation, warm/dry Assessment/Plan Problem List: (1) Acute hyperglycemia Assessment & Plan: ? secondaary to infection? See ID and endocrinology note. (2) Uncontrolled diabetes mellitus Assessment & Plan: Continue levemir and novolog sliding scale per endocrinology (3) Anemia (4) CKD (chronic kidney disease), stage III Assessment & Plan: See nephrology note. (5) Hyperglycemia due to type 2 diabetes mellitus (6) CAD (coronary artery disease) (7) HTN (hypertension) Assessment & Plan: Cont lopressor and norvasc. (8) Acute hyperglycemia (9) Gastritis (10) BPH (benign prostatic hyperplasia) (11) Hypercholesteremia (12) Sepsis Assessment & Plan: Staph epidermidis. See ID note. Replace PICC. Continue daptomycin day #7/14 or longer if 2nd blood culture positive per ID. Await Transesophageal echo Scheduled for 08/19/17 by DEE Hector Aug 17, 2017 18:02
[2017-08-17 20:00] VITALS: BP 147/85
[2017-08-17] MEDS ORDERED: Dyna-Hex 2% Top Sol 2oz TOPIC SCH (20:00)
[2017-08-18] VITALS: BP 142/75
--- NOTE | 2017-08-18 01:45 | Progress Note ---
DATE: 08/17/2017 SUBJECTIVE: The patient is pleasant and cooperative. He is more depressed today. He has some depressed mood, anhedonia, worthlessness, hopelessness, and decreased energy. Denies any suicidal or homicidal ideation. He had difficulty sleeping last night. MENTAL STATUS EXAMINATION: The patient is alert and oriented times self, place, and situation he is in. Mood is depressed. Affect is constricted, congruent with mood. Thought process is linear. Thought content, no suicidal or homicidal ideations. ASSESSMENT: 1. Depression. 2. Schizophrenia by history. PLAN: 1. We will continue the Cymbalta. 2. Provide the patient with supportive therapy and reality orientation. We will continue to follow and readjust the medications. Fatmata Lu M.D. DR: TON JOB#: [id number] CC:
[2017-08-18] MEDS: HydrALAZINE 25mg tab ORAL SCH ×3 (06:08→22:06)
[2017-08-18] MEDS: NovoLOG Insulin Flexpen SUBQ SCH ×7 (06:10→20:45)
[2017-08-18 08:10] VITALS: BP 161/80
[2017-08-18] MEDS ORDERED: Heparin 2000 units/Ns 1000ml INJ ONE (08:15)
[2017-08-18] MEDS ORDERED: Lidocaine 1% Plain 30 ml INJ ONE (08:15)
[2017-08-18] MEDS: Docusate 100mg cap ORAL SCH ×4 (08:31→17:04)
[2017-08-18] MEDS: azaTHIOprine 50 MG TAB ORAL SCH (08:31)
[2017-08-18] MEDS: Sodium Citrate 30ml ORAL SCH ×2 (08:31→17:04)
[2017-08-18] MEDS: Tamsulosin 0.4mg cap ORAL SCH ×2 (08:31→20:46)
[2017-08-18] MEDS: Metoprolol Tartrate 50mg tab ORAL SCH ×2 (08:32→20:46)
[2017-08-18] MEDS: Heparin 5000 units/ml inj SUBQ SCH ×2 (08:32→20:45)
[2017-08-18] MEDS: Levemir Flexpen SUBQ SCH ×2 (08:34→17:02)
[2017-08-18] MEDS: DULoxetine 30mg cap ORAL SCH (08:35)
[2017-08-18 08:56] LABS: BASOPHILS % (AUTO) 0.7 % (0.0-2.0); HEMATOCRIT 31.7 % (42.0-52.0); HEMOGLOBIN 10.1 G/DL (14.2-18.0); LYMPHOCYTES % (AUTO) 23.6 % (20.0-45.0); MEAN CORPUSCULAR VOLUME 103 FL (80-99); MONOCYTES % (AUTO) 9.1 % (1.0-10.0); NEUTROPHILS % (AUTO) 62.6 % (45.0-75.0); PLATELET COUNT 311 K/UL (150-450); RED BLOOD COUNT 3.09 M/UL (4.70-6.10); RED CELL DISTRIBUTION WIDTH 18.8 % (11.6-14.8); WHITE BLOOD COUNT 9.1 K/UL (4.8-10.8)
[2017-08-18 09:18] LABS: ALANINE AMINOTRANSFERASE 30 U/L (12-78); ALBUMIN/GLOBULIN RATIO 0.7 (1.0-2.7); ALKALINE PHOSPHATASE 93 U/L (46-116); ANION GAP 14 mmol/L (5-15); ASPARTATE AMINO TRANSFERASE 28 U/L (15-37); BILIRUBIN,TOTAL 0.4 MG/DL (0.2-1.0); BLOOD UREA NITROGEN 51 mg/dL (7-18); CALCIUM 9.2 MG/DL (8.5-10.1); CARBON DIOXIDE 20 MMOL/L (21-32); CHLORIDE 109 MMOL/L (98-107); CREATININE 4.6 MG/DL (0.55-1.30); PHOSPHORUS 2.9 MG/DL (2.5-4.9); POTASSIUM 3.8 MMOL/L (3.5-5.1); SODIUM 143 MMOL/L (136-145)
--- NOTE | 2017-08-18 10:26 | Cardiac Electrophysiology PN ---
Assessment/Plan Assessment/Plan 1. Persistent bacteremia despite removal of the peripherally inserted central catheter line. Awaiting transesophageal echocardiogram by Dr Cruz on New PICC line today 2. Hypertension. Continue hydralazine 25 mg tid, Norvasc 5 mg b.i.d. as well as metoprolol 50 mg b.i.d. 3. End-stage renal disease with history of hemodialysis in the past and currently is status post kidney transplant. The patient is on Imuran. 4. Anemia, could be due to renal failure. Subjective Subjective No chest pain or SOB.Getting PICC line. On schedule for AMY on . Objective Last 24 Hour Vital Signs Date Time Temp Pulse Resp B/P (MAP) Pulse Ox O2 Delivery O2 Flow Rate FiO2 08/18/17 08:32 73 161/80 08/18/17 08:31 73 161/80 08/18/17 08:10 98.3 73 19 161/80 98 Room Air 08/18/17 06:08 132/61 08/18/17 00:00 97.3 68 20 142/75 99 08/17/17 22:26 137/67 08/17/17 21:15 78 147/85 08/17/17 20:00 98.1 78 20 147/85 100 08/17/17 17:25 70 155/84 08/17/17 16:00 97.7 70 20 155/84 98 08/17/17 14:33 159/76 08/17/17 12:00 97.5 78 20 159/76 100 Intake and Output 08/17/17 08/18/17 19:00 07:00 Intake Total 1180 ml Output Total 750 ml 400 ml Balance 430 ml -400 ml Intake Oral 1180 ml Output Urine Total 750 ml 400 ml # Voids 1 Laboratory Tests Test 08/18/17 08:00 White Blood Count 9.1 K/UL (4.8-10.8) Red Blood Count 3.09 M/UL (4.70-6.10) L Hemoglobin 10.1 G/DL (14.2-18.0) L Hematocrit 31.7 % (42.0-52.0) L Mean Corpuscular Volume 103 FL (80-99) H Mean Corpuscular Hemoglobin 32.6 PG (27.0-31.0) H Mean Corpuscular Hemoglobin Concent 31.7 G/DL (32.0-36.0) L Red Cell Distribution Width 18.8 % (11.6-14.8) H Platelet Count 311 K/UL (150-450) Mean Platelet Volume 6.6 FL (6.5-10.1) Neutrophils (%) (Auto) 62.6 % (45.0-75.0) Lymphocytes (%) (Auto) 23.6 % (20.0-45.0) Monocytes (%) (Auto) 9.1 % (1.0-10.0) Eosinophils (%) (Auto) 4.0 % (0.0-3.0) H Basophils (%) (Auto) 0.7 % (0.0-2.0) Erythrocyte Sedimentation Rate 64 MM/HR (0-20) H Sodium Level 143 MMOL/L (136-145) Potassium Level 3.8 MMOL/L (3.5-5.1) Chloride Level 109 MMOL/L (98-107) H Carbon Dioxide Level 20 MMOL/L (21-32) L Anion Gap 14 mmol/L (5-15) Blood Urea Nitrogen 51 mg/dL (7-18) H Creatinine 4.6 MG/DL (0.55-1.30) H Estimat Glomerular Filtration Rate 13.0 mL/min (>60) Glucose Level 123 MG/DL (74-106) #H Calcium Level 9.2 MG/DL (8.5-10.1) Phosphorus Level 2.9 MG/DL (2.5-4.9) Magnesium Level 1.8 MG/DL (1.8-2.4) Total Bilirubin 0.4 MG/DL (0.2-1.0) Aspartate Amino Transf (AST/SGOT) 28 U/L (15-37) Alanine Aminotransferase (ALT/SGPT) 30 U/L (12-78) Alkaline Phosphatase 93 U/L (46-116) C-Reactive Protein, Quantitative 1.5 mg/dL (0.00-0.90) H Total Protein 7.1 G/DL (6.4-8.2) Albumin 3.0 G/DL (3.4-5.0) L Globulin 4.1 g/dL Albumin/Globulin Ratio 0.7 (1.0-2.7) L Objective HEAD AND NECK: No JVD. LUNGS: Clear. CARDIOVASCULAR: Regular S1 and S2 with no gallop or murmur. ABDOMEN: Soft. EXTREMITIES: There is no pitting edema. RED CAMARENA Aug 18, 2017 10:26
[2017-08-18 11:31] VITALS: BP 146/66
--- NOTE | 2017-08-18 11:42 | Internal Med Progress Note ---
Subjective Date of Service: Aug 18, 2017 Physician Name Dee Glasgow Attending Physician Christopher Rosado MD Current Medications Medications (Trade) Dose Ordered Sig/Dunia Route PRN Reason Start Time Stop Time Status Last Admin Dose Admin Acetaminophen (Tylenol) 650 mg Q4H PRN ORAL fever 08/06/17 22:45 09/05/17 22:44 08/07/17 10:56 Amlodipine Besylate (Norvasc) 5 mg BID ORAL 08/09/17 18:00 09/06/17 08:59 08/18/17 08:31 Azathioprine (Imuran) 50 mg DAILY ORAL 08/07/17 09:00 09/06/17 08:59 08/18/17 08:31 Chlorhexidine Gluconate (Eloisa-Hex 2%) 1 applic DAILY@2000 TOPIC 08/18/17 20:00 09/17/17 19:59 Clonidine HCl (Catapres Tab) 0.1 mg Q4H PRN ORAL sbp more than 160 08/06/17 22:45 09/05/17 22:44 08/12/17 11:57 Daptomycin 500 mg/ Sodium Chloride 55 ml @ 110 mls/hr Q48H IV 08/15/17 14:00 08/22/17 13:59 08/17/17 14:33 Dextrose (Dextrose 50%) STAT PRN IV Hypoglycemia 08/08/17 09:00 09/07/17 08:59 08/10/17 18:27 Docusate Sodium (Colace) 100 mg TID ORAL 08/09/17 18:00 09/08/17 17:59 08/17/17 17:25 Duloxetine HCl (Cymbalta) 30 mg DAILY ORAL 08/07/17 09:00 09/06/17 08:59 08/18/17 08:35 Epoetin Jose (Procrit (for non ESRD use)) 10,000 units MON-WED-WED SUBQ 08/11/17 21:00 09/10/17 20:59 08/16/17 21:03 Finasteride (Proscar) 5 mg DAILY ORAL 08/07/17 09:00 09/06/17 08:59 08/18/17 08:31 Heparin Sodium (Porcine) (Heparin 5000 units/ml) 5,000 units EVERY 12 HOURS SUBQ 08/07/17 09:00 09/06/17 08:59 08/17/17 21:16 Hydralazine HCl (Apresoline) 25 mg Q8HR ORAL 08/16/17 14:00 09/15/17 13:59 08/18/17 06:08 Insulin Aspart (NovoLOG) BEFORE MEALS AND HS SUBQ 08/10/17 21:00 09/09/17 20:59 08/18/17 11:32 Insulin Aspart (NovoLOG) 5 units NOVOTIAC SUBQ 08/12/17 06:30 09/11/17 06:29 08/18/17 11:33 Insulin Detemir (Levemir) 10 units BID SUBQ 08/09/17 21:00 09/08/17 20:59 08/18/17 08:34 Metoprolol Tartrate (Lopressor) 50 mg Q12HR ORAL 08/07/17 21:00 09/06/17 20:59 08/18/17 08:32 Morphine Sulfate (Morphine Sulfate) 2 mg Q4H PRN IVP For Pain 08/14/17 15:45 08/21/17 15:44 Nitroglycerin (Ntg) 0.4 mg Q5M X 3 DOSES PRN SL Prn Chest Pain 08/06/17 22:45 09/05/17 22:44 Ondansetron HCl (Zofran) 4 mg Q6H PRN IVP Nausea & Vomiting 08/06/17 22:45 09/05/17 22:44 Pantoprazole (Protonix) 40 mg DAILY ORAL 08/09/17 16:30 09/08/17 16:29 08/18/17 08:31 Polyethylene Glycol (Miralax) 17 gm HSPRN PRN ORAL Constipation 08/06/17 22:45 09/05/17 22:44 Sodium Citrate (Bicitra) 30 ml BID ORAL 08/16/17 18:00 09/09/17 11:59 08/18/17 08:31 Tamsulosin HCl (Flomax) 0.4 mg Q12HR ORAL 08/07/17 21:00 09/06/17 20:59 08/18/17 08:31 Temazepam (Restoril) 15 mg HSPRN PRN ORAL Insomnia 08/14/17 15:45 08/21/17 15:44 Allergies: Coded Allergies: CEFEPIME (Verified Allergy, Intermediate, Rash, 7/15/13) ROS Limited/Unobtainable: No Constitutional: Reports: no symptoms HEENT: Reports: no symptoms Cardiovascular: Reports: no symptoms Respiratory: Reports: no symptoms Gastrointestinal/Abdominal: Reports: no symptoms Genitourinary: Reports: no symptoms Neurologic/Psychiatric: Reports: no symptoms Subjective 62 YO M admitted with hyperglycemia. Now sepsis. Cover for Int Pierre-Dr Rosado.. Await transesophageal echocardiogram scheduled for 08/19/17 Objective Last Vital Signs Date Time Temp Pulse Resp B/P (MAP) Pulse Ox O2 Delivery O2 Flow Rate FiO2 08/18/17 11:31 94.5 74 146/66 Room Air 08/18/17 08:10 19 98 08/12/17 18:46 21 Laboratory Tests Test 08/18/17 08:00 White Blood Count 9.1 K/UL (4.8-10.8) Red Blood Count 3.09 M/UL (4.70-6.10) L Hemoglobin 10.1 G/DL (14.2-18.0) L Hematocrit 31.7 % (42.0-52.0) L Mean Corpuscular Volume 103 FL (80-99) H Mean Corpuscular Hemoglobin 32.6 PG (27.0-31.0) H Mean Corpuscular Hemoglobin Concent 31.7 G/DL (32.0-36.0) L Red Cell Distribution Width 18.8 % (11.6-14.8) H Platelet Count 311 K/UL (150-450) Mean Platelet Volume 6.6 FL (6.5-10.1) Neutrophils (%) (Auto) 62.6 % (45.0-75.0) Lymphocytes (%) (Auto) 23.6 % (20.0-45.0) Monocytes (%) (Auto) 9.1 % (1.0-10.0) Eosinophils (%) (Auto) 4.0 % (0.0-3.0) H Basophils (%) (Auto) 0.7 % (0.0-2.0) Erythrocyte Sedimentation Rate 64 MM/HR (0-20) H Sodium Level 143 MMOL/L (136-145) Potassium Level 3.8 MMOL/L (3.5-5.1) Chloride Level 109 MMOL/L (98-107) H Carbon Dioxide Level 20 MMOL/L (21-32) L Anion Gap 14 mmol/L (5-15) Blood Urea Nitrogen 51 mg/dL (7-18) H Creatinine 4.6 MG/DL (0.55-1.30) H Estimat Glomerular Filtration Rate 13.0 mL/min (>60) Glucose Level 123 MG/DL (74-106) #H Calcium Level 9.2 MG/DL (8.5-10.1) Phosphorus Level 2.9 MG/DL (2.5-4.9) Magnesium Level 1.8 MG/DL (1.8-2.4) Total Bilirubin 0.4 MG/DL (0.2-1.0) Aspartate Amino Transf (AST/SGOT) 28 U/L (15-37) Alanine Aminotransferase (ALT/SGPT) 30 U/L (12-78) Alkaline Phosphatase 93 U/L (46-116) C-Reactive Protein, Quantitative 1.5 mg/dL (0.00-0.90) H Total Protein 7.1 G/DL (6.4-8.2) Albumin 3.0 G/DL (3.4-5.0) L Globulin 4.1 g/dL Albumin/Globulin Ratio 0.7 (1.0-2.7) L Intake and Output 08/17/17 2 19:00 07:00 Intake Total 1180 ml Output Total 750 ml 400 ml Balance 430 ml -400 ml Intake Oral 1180 ml Output Urine Total 750 ml 400 ml # Voids 1 Objective General Appearance: WD/WN, no apparent distress, alert Neck: non-tender, normal alignment, supple Cardiovascular: normal peripheral pulses, normal rate, regular rhythm, no gallop/murmur, no JVD Respiratory/Chest: chest wall non-tender, lungs clear, normal breath sounds, no respiratory distress, no accessory muscle use Extremities: normal range of motion, non-tender Neurologic: no motor/sensory deficits Skin: normal pigmentation, warm/dry Assessment/Plan Problem List: (1) Acute hyperglycemia Assessment & Plan: ? secondaary to infection? See ID and endocrinology note. (2) Uncontrolled diabetes mellitus Assessment & Plan: Continue levemir and novolog sliding scale per endocrinology (3) Anemia (4) CKD (chronic kidney disease), stage III Assessment & Plan: See nephrology note. (5) Hyperglycemia due to type 2 diabetes mellitus (6) CAD (coronary artery disease) (7) HTN (hypertension) Assessment & Plan: Cont lopressor and norvasc. (8) Acute hyperglycemia (9) Gastritis (10) BPH (benign prostatic hyperplasia) (11) Hypercholesteremia (12) Sepsis Assessment & Plan: Staph epidermidis. See ID note. Replace PICC. Continue daptomycin day #7/14 or longer if 2nd blood culture positive per ID. Await Transesophageal echo Scheduled for 08/19/[address] Cruz Status: DEE Ballard Aug 18, 2017 11:42
--- NOTE | 2017-08-18 12:47 | Diagnostic Imaging Report ---
Indications: Needs long-term IV access Technique: Ultrasound confirms patent compressible left cephalic vein. Total sterile technique, including sterile probe cover and sterile gel, hat, mask,, sterile gown, large sterile drape, and preparation with 2% chlorhexidine utilized. Local anesthesia with 1% lidocaine. Under real-time ultrasound guidance, puncture cephalic vein using 21-gauge needle, documented and archived, passage 0.018 guidewire under direct fluoroscopy, which traveled retrograde down the axillary vein beyond the cephalic arch. 5 [place] peel-away sheath was placed. A [employer] catheter was used to directed into the heart. The guidewire was used to determine appropriate catheter length. 5 [place] Bard dual-lumen power PICC cut to 45 cm. It was inserted through the peel-away sheath. Peel-away sheath and guidewire removed. Catheter fixed to the skin. Both catheter ports aspirated and flushed. Patient tolerated procedure well, without immediate complication. Digital radiograph documents satisfactory catheter tip position, at downstream superior vena cava. Total fluoroscopy time 1.4 minutes. Total dose area product 27 dGycm2 Impression: Successful placement of left arm PICC under sonographic and fluoroscopic guidance, as described above.
--- NOTE | 2017-08-18 15:24 | Pulmonology Progress Note ---
Assessment/Plan Problems: (1) Bacteremia (2) Uncontrolled diabetes mellitus (3) Anemia in chronic kidney disease (4) Psychiatric disturbance (5) Anemia (6) Renal transplant recipient Assessment/Plan improving all reviewed, no new events sliding scale iv fluids psych f/u diabetic diet f/u blood culture sensitivities f/u ID recommendations, on Daptomycin PICC line in am continue abx AMY b/o persistent endocarditis, on Subjective ROS Limited/Unobtainable: No Constitutional: Reports: no symptoms HEENT: Repors: no symptoms Respiratory: Reports: no symptoms Allergies: Coded Allergies: CEFEPIME (Verified Allergy, Intermediate, Rash, 01/23/13) Objective Last 24 Hour Vital Signs Date Time Temp Pulse Resp B/P (MAP) Pulse Ox O2 Delivery O2 Flow Rate FiO2 08/18/17 14:17 146/66 08/18/17 11:31 94.5 74 146/66 Room Air 08/18/17 08:32 73 161/80 08/18/17 08:31 73 161/80 08/18/17 08:10 98.3 73 19 161/80 98 Room Air 08/18/17 06:08 132/61 08/18/17 00:00 97.3 68 20 142/75 99 08/17/17 22:26 137/67 08/17/17 21:15 78 147/85 08/17/17 20:00 98.1 78 20 147/85 100 08/17/17 17:25 70 155/84 08/17/17 16:00 97.7 70 20 155/84 98 Intake and Output 08/17/17 08/18/17 19:00 07:00 Intake Total 1180 ml Output Total 750 ml 400 ml Balance 430 ml -400 ml Intake Oral 1180 ml Output Urine Total 750 ml 400 ml # Voids 1 Objective General Appearance: WN Lines, tubes and drains: peripheral HEENT: normocephalic, atraumatic Neck: non-tender, normal alignment Respiratory/Chest: chest wall non-tender, lungs clear Cardiovascular/Chest: normal peripheral pulses, normal rate Abdomen: normal bowel sounds, non tender Genitourinary/Rectal: normal genital exam, normal rectal exam Skin Exam: normal pigmentation Laboratory Tests 08/18/17 08:00: White Blood Count 9.1, Red Blood Count 3.09L, Hemoglobin 10.1L, Hematocrit 31.7L , Mean Corpuscular Volume 103H, Mean Corpuscular Hemoglobin 32.6H, Mean Corpuscular Hemoglobin Concent 31.7L, Red Cell Distribution Width 18.8H, Platelet Count 311, Mean Platelet Volume 6.6, Neutrophils (%) (Auto) 62.6, Lymphocytes (%) (Auto) 23.6, Monocytes (%) (Auto) 9.1, Eosinophils (%) (Auto) 4.0H, Basophils (%) (Auto) 0.7, Erythrocyte Sedimentation Rate 64H, Sodium Level 143, Potassium Level 3.8, Chloride Level 109H, Carbon Dioxide Level 20L, Anion Gap 14, Blood Urea Nitrogen 51H, Creatinine 4.6H, Estimat Glomerular Filtration Rate 13.0, Glucose Level 123#H, Calcium Level 9.2, Phosphorus Level 2.9, Magnesium Level 1.8, Total Bilirubin 0.4, Aspartate Amino Transf (AST/SGOT ) 28, Alanine Aminotransferase (ALT/SGPT) 30, Alkaline Phosphatase 93, C- Reactive Protein, Quantitative 1.5H, Total Protein 7.1, Albumin 3.0L, Globulin 4.1, Albumin/Globulin Ratio 0.7L Current Medications Medications (Trade) Dose Ordered Sig/Dunia Route PRN Reason Start Time Stop Time Status Last Admin Dose Admin Acetaminophen (Tylenol) 650 mg Q4H PRN ORAL fever 08/06/17 22:45 09/05/17 22:44 08/07/17 10:56 Amlodipine Besylate (Norvasc) 5 mg BID ORAL 08/09/17 18:00 09/06/17 08:59 08/18/17 08:31 Azathioprine (Imuran) 50 mg DAILY ORAL 08/07/17 09:00 09/06/17 08:59 08/18/17 08:31 Chlorhexidine Gluconate (Eloisa-Hex 2%) 1 applic DAILY@2000 TOPIC 08/18/17 20:00 09/17/17 19:59 Clonidine HCl (Catapres Tab) 0.1 mg Q4H PRN ORAL sbp more than 160 08/06/17 22:45 09/05/17 22:44 08/12/17 11:57 Daptomycin 500 mg/ Sodium Chloride 55 ml @ 110 mls/hr Q48H IV 08/15/17 14:00 08/22/17 13:59 08/17/17 14:33 Dextrose (Dextrose 50%) STAT PRN IV Hypoglycemia 08/08/17 09:00 09/07/17 08:59 08/10/17 18:27 Docusate Sodium (Colace) 100 mg TID ORAL 08/09/17 18:00 09/08/17 17:59 08/17/17 17:25 Duloxetine HCl (Cymbalta) 30 mg DAILY ORAL 08/07/17 09:00 09/06/17 08:59 08/18/17 08:35 Epoetin Jose (Procrit (for non ESRD use)) 7,500 units WED-WED-WED SUBQ 08/18/17 21:00 09/17/17 20:59 Finasteride (Proscar) 5 mg DAILY ORAL 08/07/17 09:00 09/06/17 08:59 08/18/17 08:31 Heparin Sodium (Porcine) (Heparin 5000 units/ml) 5,000 units EVERY 12 HOURS SUBQ 08/07/17 09:00 09/06/17 08:59 08/17/17 21:16 Hydralazine HCl (Apresoline) 25 mg Q8HR ORAL 08/16/17 14:00 09/15/17 13:59 08/18/17 14:17 Insulin Aspart (NovoLOG) BEFORE MEALS AND HS SUBQ 08/10/17 21:00 09/09/17 20:59 08/18/17 11:32 Insulin Aspart (NovoLOG) 5 units NOVOTIAC SUBQ 08/12/17 06:30 09/11/17 06:29 08/18/17 11:33 Insulin Detemir (Levemir) 10 units BID SUBQ 08/09/17 21:00 09/08/17 20:59 08/18/17 08:34 Metoprolol Tartrate (Lopressor) 50 mg Q12HR ORAL 08/07/17 21:00 09/06/17 20:59 08/18/17 08:32 Morphine Sulfate (Morphine Sulfate) 2 mg Q4H PRN IVP For Pain 08/14/17 15:45 08/21/17 15:44 Nitroglycerin (Ntg) 0.4 mg Q5M X 3 DOSES PRN SL Prn Chest Pain 08/06/17 22:45 09/05/17 22:44 Ondansetron HCl (Zofran) 4 mg Q6H PRN IVP Nausea & Vomiting 08/06/17 22:45 09/05/17 22:44 Pantoprazole (Protonix) 40 mg DAILY ORAL 08/09/17 16:30 09/08/17 16:29 08/18/17 08:31 Polyethylene Glycol (Miralax) 17 gm HSPRN PRN ORAL Constipation 08/06/17 22:45 09/05/17 22:44 Sodium Citrate (Bicitra) 30 ml BID ORAL 08/16/17 18:00 09/09/17 11:59 08/18/17 08:31 Tamsulosin HCl (Flomax) 0.4 mg Q12HR ORAL 08/07/17 21:00 09/06/17 20:59 08/18/17 08:31 Temazepam (Restoril) 15 mg HSPRN PRN ORAL Insomnia 08/14/17 15:45 08/21/17 15:44 MARGO GALLEGOS Aug 18, 2017 15:24
[2017-08-18 16:00] VITALS: BP 127/68
--- NOTE | 2017-08-18 16:16 | Infectious Diseases Prog Note ---
Assessment/Plan Assessment/Plan ASSESSMENT: The patient is a 62-year-old male with: Persistent Staph Epi bacteremia- initially suspected 2ry to infected PICC line, however patient persist bacteremic despite line removal, there for suspicion for occult source or endovascular source- r/o endocarditis -s/p PICC removal 08/09; cath cx NTD -08/06 Bcx 10/13 Staph epi/MRSE (labeld peripheral), Bcx 08/07 NTD, 08/08 (line) 2/ 2 MRSE; 08/09 07/15 GPC clusters (however line was still in place); Bcx 08/11 2/4 S. epi; 2/ NTD -TTE: Thickened mitral valve leaflets with normal excursion. Mild mitral annulus and aortic root calcification. Pulmonic valve is well visualized. Normal tricuspid valve structure. No echodensity is seen on valves (vegetation) , consider AMY if clinically indicated. Low-grade fever/leukocytosis- resolved -u/a no pyuria, ucx 10-20k mixed gram positive -CXR no acute disease -s/p PICC line 08/18 Uncontrolled diabetes, probably due to sepsis. 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 -History of renal and pancreas transplant about 10 years ago. 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 -07/15 E fecalis (Amp R, Vanco S) - History of suicidal attempts in the past. -. History of myocardial infarction. -. History of anemia. -. History of colon polyps. PLAN: -Continue daptomycin #12 for S. epi bacteremia; duration to follow pending AMY, but minimum of 4 weeks from 1st of neg bcx. -weekly CPK -08/09 SP Aztreonam #3 -AMY to eval for endocarditis, tomorrow -f/u repeat 2 sets of Bcx - Monitor CBC/BMP, temperatuers -aspiration precautions Thank you, Dr. Delgado, for allowing me to participate in the care of this patient. I will follow the patient with you during this hospitalization. Discussed with RN Subjective Allergies: Coded Allergies: CEFEPIME (Verified Allergy, Intermediate, Rash, 01/23/13) Subjective afebrile no leukocytosis repeat Bcx 2/3 NTD awaiting AMY Objective Vital Signs Last 24 Hour Vital Signs Date Time Temp Pulse Resp B/P (MAP) Pulse Ox O2 Delivery O2 Flow Rate FiO2 08/18/17 14:17 146/66 08/18/17 11:31 94.5 74 146/66 Room Air 08/18/17 08:32 73 161/80 08/18/17 08:31 73 161/80 08/18/17 08:10 98.3 73 19 161/80 98 Room Air 08/18/17 06:08 132/61 08/18/17 00:00 97.3 68 20 142/75 99 08/17/17 22:26 137/67 08/17/17 21:15 78 147/85 08/17/17 20:00 98.1 78 20 147/85 100 08/17/17 17:25 70 155/84 Height (Feet): 5 Height (Inches): 8.00 Weight (Pounds): 209 Objective HEENT: No pale conjunctivae. No icterus. CHEST: Clear. HEART: S1 and S2. ABDOMEN: Soft, obese, nontender. EXTREMITIES: picc line removed, no rash NEUROLOGIC: Awake and alert. SKIN: The patient has scattered scratch velasquez on the upper and lower extremities. Laboratory Tests Test 08/18/17 08:00 White Blood Count 9.1 K/UL (4.8-10.8) Red Blood Count 3.09 M/UL (4.70-6.10) L Hemoglobin 10.1 G/DL (14.2-18.0) L Hematocrit 31.7 % (42.0-52.0) L Mean Corpuscular Volume 103 FL (80-99) H Mean Corpuscular Hemoglobin 32.6 PG (27.0-31.0) H Mean Corpuscular Hemoglobin Concent 31.7 G/DL (32.0-36.0) L Red Cell Distribution Width 18.8 % (11.6-14.8) H Platelet Count 311 K/UL (150-450) Mean Platelet Volume 6.6 FL (6.5-10.1) Neutrophils (%) (Auto) 62.6 % (45.0-75.0) Lymphocytes (%) (Auto) 23.6 % (20.0-45.0) Monocytes (%) (Auto) 9.1 % (1.0-10.0) Eosinophils (%) (Auto) 4.0 % (0.0-3.0) H Basophils (%) (Auto) 0.7 % (0.0-2.0) Erythrocyte Sedimentation Rate 64 MM/HR (0-20) H Sodium Level 143 MMOL/L (136-145) Potassium Level 3.8 MMOL/L (3.5-5.1) Chloride Level 109 MMOL/L (98-107) H Carbon Dioxide Level 20 MMOL/L (21-32) L Anion Gap 14 mmol/L (5-15) Blood Urea Nitrogen 51 mg/dL (7-18) H Creatinine 4.6 MG/DL (0.55-1.30) H Estimat Glomerular Filtration Rate 13.0 mL/min (>60) Glucose Level 123 MG/DL (74-106) #H Calcium Level 9.2 MG/DL (8.5-10.1) Phosphorus Level 2.9 MG/DL (2.5-4.9) Magnesium Level 1.8 MG/DL (1.8-2.4) Total Bilirubin 0.4 MG/DL (0.2-1.0) Aspartate Amino Transf (AST/SGOT) 28 U/L (15-37) Alanine Aminotransferase (ALT/SGPT) 30 U/L (12-78) Alkaline Phosphatase 93 U/L (46-116) C-Reactive Protein, Quantitative 1.5 mg/dL (0.00-0.90) H Total Protein 7.1 G/DL (6.4-8.2) Albumin 3.0 G/DL (3.4-5.0) L Globulin 4.1 g/dL Albumin/Globulin Ratio 0.7 (1.0-2.7) L Current Medications Medications (Trade) Dose Ordered Sig/Dunia Route PRN Reason Start Time Stop Time Status Last Admin Dose Admin Acetaminophen (Tylenol) 650 mg Q4H PRN ORAL fever 08/06/17 22:45 09/05/17 22:44 08/07/17 10:56 Amlodipine Besylate (Norvasc) 5 mg BID ORAL 08/09/17 18:00 09/06/17 08:59 08/18/17 08:31 Azathioprine (Imuran) 50 mg DAILY ORAL 08/07/17 09:00 2/26/18 08:59 08/18/17 08:31 Chlorhexidine Gluconate (Eloisa-Hex 2%) 1 applic DAILY@2000 TOPIC 08/18/17 20:00 09/17/17 19:59 Clonidine HCl (Catapres Tab) 0.1 mg Q4H PRN ORAL sbp more than 160 08/06/17 22:45 09/05/17 22:44 08/12/17 11:57 Daptomycin 500 mg/ Sodium Chloride 55 ml @ 110 mls/hr Q48H IV 08/15/17 14:00 08/22/17 13:59 08/17/17 14:33 Dextrose (Dextrose 50%) STAT PRN IV Hypoglycemia 08/08/17 09:00 09/07/17 08:59 08/10/17 18:27 Docusate Sodium (Colace) 100 mg TID ORAL 08/09/17 18:00 09/08/17 17:59 08/17/17 17:25 Duloxetine HCl (Cymbalta) 30 mg DAILY ORAL 08/07/17 09:00 09/06/17 08:59 08/18/17 08:35 Epoetin Jose (Procrit (for non ESRD use)) 7,500 units MON-WED-WED SUBQ 08/18/17 21:00 09/17/17 20:59 Finasteride (Proscar) 5 mg DAILY ORAL 08/07/17 09:00 09/06/17 08:59 08/18/17 08:31 Heparin Sodium (Porcine) (Heparin 5000 units/ml) 5,000 units EVERY 12 HOURS SUBQ 08/07/17 09:00 09/06/17 08:59 08/17/17 21:16 Hydralazine HCl (Apresoline) 25 mg Q8HR ORAL 08/16/17 14:00 09/15/17 13:59 08/18/17 14:17 Insulin Aspart (NovoLOG) BEFORE MEALS AND HS SUBQ 08/10/17 21:00 09/09/17 20:59 08/18/17 11:32 Insulin Aspart (NovoLOG) 5 units NOVOTIAC SUBQ 08/12/17 06:30 09/11/17 06:29 08/18/17 11:33 Insulin Detemir (Levemir) 10 units BID SUBQ 08/09/17 21:00 09/08/17 20:59 08/18/17 08:34 Metoprolol Tartrate (Lopressor) 50 mg Q12HR ORAL 08/07/17 21:00 09/06/17 20:59 08/18/17 08:32 Morphine Sulfate (Morphine Sulfate) 2 mg Q4H PRN IVP For Pain 08/14/17 15:45 08/21/17 15:44 Nitroglycerin (Ntg) 0.4 mg Q5M X 3 DOSES PRN SL Prn Chest Pain 08/06/17 22:45 09/05/17 22:44 Ondansetron HCl (Zofran) 4 mg Q6H PRN IVP Nausea & Vomiting 08/06/17 22:45 09/05/17 22:44 Pantoprazole (Protonix) 40 mg DAILY ORAL 08/09/17 16:30 09/08/17 16:29 08/18/17 08:31 Polyethylene Glycol (Miralax) 17 gm HSPRN PRN ORAL Constipation 08/06/17 22:45 09/05/17 22:44 Sodium Citrate (Bicitra) 30 ml BID ORAL 08/16/17 18:00 09/09/17 11:59 08/18/17 08:31 Tamsulosin HCl (Flomax) 0.4 mg Q12HR ORAL 08/07/17 21:00 09/06/17 20:59 08/18/17 08:31 Temazepam (Restoril) 15 mg HSPRN PRN ORAL Insomnia 08/14/17 15:45 08/21/17 15:44 Monique Read M.D. Aug 18, 2017 16:16
--- NOTE | 2017-08-18 16:28 | Nephrology Progress Note ---
Assessment/Plan Problem List: (1) CKD (chronic kidney disease), stage III Assessment: cr at lowest 3.9 - 4 (2) Uncontrolled diabetes mellitus (3) BPH (benign prostatic hyperplasia) (4) Anemia (5) Nephropathy, diabetic (6) HTN (hypertension) Assessment Cr low 4.6 has CKD and was admitted for DM OOC BS is being managed by Endo Also has Bacteremia due to Picc line insertion at [facility] (1) CKD (chronic kidney disease), stage III, superimposed acute- Cr unchanged since last admit (2) Dehydration- Partly due to hyperglycemia (3) Hyperglycemia due to type 2 diabetes mellitus (4) BPH (benign prostatic hypertrophy) (5) Nephropathy, diabetic (6) History of simultaneous kidney and pancreas transplant (7) UTI (urinary tract infection) (8) Anemia of CKD Plan Plan: due Picc and Trans Esophageal Echo add hydralazine for high BP BP and BS control- Flomax PO- monitor renal parameters Anemia [place] EPO SQ down on Bicitra Antibiotics for bacterimia ? Dc planning previous workup: 2D Echo: Left ventricular ejection fraction estimated to be 55 %. No evidence of left ventricular hypertrophy. Subjective ROS Limited/Unobtainable: No Constitutional: Reports: malaise Objective Objective Last 24 Hour Vital Signs Date Time Temp Pulse Resp B/P (MAP) Pulse Ox O2 Delivery O2 Flow Rate FiO2 08/18/17 14:17 146/66 08/18/17 11:31 94.5 74 146/66 Room Air 08/18/17 08:32 73 161/80 08/18/17 08:31 73 161/80 08/18/17 08:10 98.3 73 19 161/80 98 Room Air 08/18/17 06:08 132/61 08/18/17 00:00 97.3 68 20 142/75 99 08/17/17 22:26 137/67 08/17/17 21:15 78 147/85 08/17/17 20:00 98.1 78 20 147/85 100 08/17/17 17:25 70 155/84 Intake and Output 08/17/17 08/18/17 19:00 07:00 Intake Total 1180 ml Output Total 750 ml 400 ml Balance 430 ml -400 ml Intake Oral 1180 ml Output Urine Total 750 ml 400 ml # Voids 1 Laboratory Tests 08/18/17 08:00: White Blood Count 9.1, Red Blood Count 3.09L, Hemoglobin 10.1L, Hematocrit 31.7L , Mean Corpuscular Volume 103H, Mean Corpuscular Hemoglobin 32.6H, Mean Corpuscular Hemoglobin Concent 31.7L, Red Cell Distribution Width 18.8H, Platelet Count 311, Mean Platelet Volume 6.6, Neutrophils (%) (Auto) 62.6, Lymphocytes (%) (Auto) 23.6, Monocytes (%) (Auto) 9.1, Eosinophils (%) (Auto) 4.0H, Basophils (%) (Auto) 0.7, Erythrocyte Sedimentation Rate 64H, Sodium Level 143, Potassium Level 3.8, Chloride Level 109H, Carbon Dioxide Level 20L, Anion Gap 14, Blood Urea Nitrogen 51H, Creatinine 4.6H, Estimat Glomerular Filtration Rate 13.0, Glucose Level 123#H, Calcium Level 9.2, Phosphorus Level 2.9, Magnesium Level 1.8, Total Bilirubin 0.4, Aspartate Amino Transf (AST/SGOT ) 28, Alanine Aminotransferase (ALT/SGPT) 30, Alkaline Phosphatase 93, C- Reactive Protein, Quantitative 1.5H, Total Protein 7.1, Albumin 3.0L, Globulin 4.1, Albumin/Globulin Ratio 0.7L Height (Feet): 5 Height (Inches): 8.00 Weight (Pounds): 209 General Appearance: no apparent distress Cardiovascular: normal rate Respiratory/Chest: decreased breath sounds Abdomen: soft Objective no change BERT ALONSO Aug 18, 2017 16:28
--- NOTE | 2017-08-18 19:43 | General Progress Note ---
Assessment/Plan Problem List: (1) ESRD (end stage renal disease) ICD Codes: N18.6 - End stage renal disease SNOMED: 18117041 (2) History of simultaneous kidney and pancreas transplant ICD Codes: Z94.0 - History of simultaneous kidney and pancreas transplant; Z94.83 - Pancreas transplant status SNOMED: 668421967 (3) Uncontrolled diabetes mellitus ICD Codes: E11.65 - Type 2 diabetes mellitus with hyperglycemia SNOMED: 093477515 Assessment/Plan his DM is very brittle by nature since he is a type 1 glucose values were fair for the most part except high value this evening after high CHO snack he easily becomes hypoglycemic continue Levemir 10 units bid - do not hold continue Novolog 5 units ac tid continue NISS sensitive scale discussed with RN Subjective Allergies: Coded Allergies: CEFEPIME (Verified Allergy, Intermediate, Rash, 01/23/13) Subjective events noted glucose very high this evening Objective Last 24 Hour Vital Signs Date Time Temp Pulse Resp B/P (MAP) Pulse Ox O2 Delivery O2 Flow Rate FiO2 08/18/17 17:04 77 127/68 08/18/17 16:00 97.3 77 18 127/68 97 08/18/17 14:17 146/66 08/18/17 11:31 94.5 74 146/66 Room Air 08/18/17 08:32 73 161/80 08/18/17 08:31 73 161/80 08/18/17 08:10 98.3 73 19 161/80 98 Room Air 08/18/17 06:08 132/61 08/18/17 00:00 97.3 68 20 142/75 99 08/17/17 22:26 137/67 08/17/17 21:15 78 147/85 08/17/17 20:00 98.1 78 20 147/85 100 Intake and Output 08/17/17 08/18/17 19:00 07:00 Intake Total 1180 ml Output Total 750 ml 400 ml Balance 430 ml -400 ml Intake Oral 1180 ml Output Urine Total 750 ml 400 ml # Voids 1 Laboratory Tests 08/18/17 08:00: White Blood Count 9.1, Red Blood Count 3.09L, Hemoglobin 10.1L, Hematocrit 31.7L , Mean Corpuscular Volume 103H, Mean Corpuscular Hemoglobin 32.6H, Mean Corpuscular Hemoglobin Concent 31.7L, Red Cell Distribution Width 18.8H, Platelet Count 311, Mean Platelet Volume 6.6, Neutrophils (%) (Auto) 62.6, Lymphocytes (%) (Auto) 23.6, Monocytes (%) (Auto) 9.1, Eosinophils (%) (Auto) 4.0H, Basophils (%) (Auto) 0.7, Erythrocyte Sedimentation Rate 64H, Sodium Level 143, Potassium Level 3.8, Chloride Level 109H, Carbon Dioxide Level 20L, Anion Gap 14, Blood Urea Nitrogen 51H, Creatinine 4.6H, Estimat Glomerular Filtration Rate 13.0, Glucose Level 123#H, Calcium Level 9.2, Phosphorus Level 2.9, Magnesium Level 1.8, Total Bilirubin 0.4, Aspartate Amino Transf (AST/SGOT ) 28, Alanine Aminotransferase (ALT/SGPT) 30, Alkaline Phosphatase 93, C- Reactive Protein, Quantitative 1.5H, Total Protein 7.1, Albumin 3.0L, Globulin 4.1, Albumin/Globulin Ratio 0.7L Height (Feet): 5 Height (Inches): 8.00 Weight (Pounds): 209 General Appearance: no apparent distress Neck: normal alignment Cardiovascular: normal rate Respiratory/Chest: lungs clear Abdomen: normal bowel sounds Edema: no edema noted Arm (L), no edema noted Arm (R), no edema noted Leg (L), no edema noted Leg (R), no edema noted Pedal (L), no edema noted Pedal (R), no edema noted Generalized Objective Current Medications Medications (Trade) Dose Ordered Sig/Dunia Route PRN Reason Start Time Stop Time Status Last Admin Dose Admin Acetaminophen (Tylenol) 650 mg Q4H PRN ORAL fever 08/06/17 22:45 09/05/17 22:44 08/07/17 10:56 Amlodipine Besylate (Norvasc) 5 mg BID ORAL 08/09/17 18:00 09/06/17 08:59 08/18/17 17:04 Azathioprine (Imuran) 50 mg DAILY ORAL 08/07/17 09:00 09/06/17 08:59 08/18/17 08:31 Chlorhexidine Gluconate (Eloisa-Hex 2%) 1 applic DAILY@2000 TOPIC 08/18/17 20:00 09/17/17 19:59 Clonidine HCl (Catapres Tab) 0.1 mg Q4H PRN ORAL sbp more than 160 08/06/17 22:45 09/05/17 22:44 08/12/17 11:57 Daptomycin 500 mg/ Sodium Chloride 55 ml @ 110 mls/hr Q48H IV 08/15/17 14:00 08/22/17 13:59 08/17/17 14:33 Dextrose (Dextrose 50%) STAT PRN IV Hypoglycemia 08/08/17 09:00 09/07/17 08:59 08/10/17 18:27 Docusate Sodium (Colace) 100 mg TID ORAL 08/09/17 18:00 09/08/17 17:59 08/17/17 17:25 Duloxetine HCl (Cymbalta) 30 mg DAILY ORAL 08/07/17 09:00 09/06/17 08:59 08/18/17 08:35 Epoetin Jose (Procrit (for non ESRD use)) 7,500 units WED-WED-WED SUBQ 08/18/17 21:00 09/17/17 20:59 Finasteride (Proscar) 5 mg DAILY ORAL 08/07/17 09:00 09/06/17 08:59 08/18/17 08:31 Heparin Sodium (Porcine) (Heparin 5000 units/ml) 5,000 units EVERY 12 HOURS SUBQ 08/07/17 09:00 09/06/17 08:59 08/17/17 21:16 Hydralazine HCl (Apresoline) 25 mg Q8HR ORAL 08/16/17 14:00 09/15/17 13:59 08/18/17 14:17 Insulin Aspart (NovoLOG) BEFORE MEALS AND HS SUBQ 08/10/17 21:00 09/09/17 20:59 08/18/17 17:03 Insulin Aspart (NovoLOG) 5 units NOVOTIAC SUBQ 08/12/17 06:30 09/11/17 06:29 08/18/17 17:03 Insulin Detemir (Levemir) 10 units BID SUBQ 08/09/17 21:00 09/08/17 20:59 08/18/17 17:02 Metoprolol Tartrate (Lopressor) 50 mg Q12HR ORAL 08/07/17 21:00 09/06/17 20:59 08/18/17 08:32 Morphine Sulfate (Morphine Sulfate) 2 mg Q4H PRN IVP For Pain 08/14/17 15:45 08/21/17 15:44 Nitroglycerin (Ntg) 0.4 mg Q5M X 3 DOSES PRN SL Prn Chest Pain 08/06/17 22:45 09/05/17 22:44 Ondansetron HCl (Zofran) 4 mg Q6H PRN IVP Nausea & Vomiting 08/06/17 22:45 09/05/17 22:44 Pantoprazole (Protonix) 40 mg DAILY ORAL 08/09/17 16:30 09/08/17 16:29 08/18/17 08:31 Polyethylene Glycol (Miralax) 17 gm HSPRN PRN ORAL Constipation 08/06/17 22:45 09/05/17 22:44 Sodium Citrate (Bicitra) 30 ml BID ORAL 08/16/17 18:00 09/09/17 11:59 08/18/17 17:04 Tamsulosin HCl (Flomax) 0.4 mg Q12HR ORAL 08/07/17 21:00 09/06/17 20:59 08/18/17 08:31 Temazepam (Restoril) 15 mg HSPRN PRN ORAL Insomnia 08/14/17 15:45 08/21/17 15:44 Item Value Date Time Bedside Blood Glucose 559 mg/dl H 08/18/17 1703 Bedside Blood Glucose 243 mg/dl H 08/18/17 1133 Bedside Blood Glucose 172 mg/dl H 08/18/17 0834 Bedside Blood Glucose 172 mg/dl H 08/18/17 0630 Bedside Blood Glucose 161 mg/dl H 08/17/17 2117 Bedside Blood Glucose 176 mg/dl H 08/17/17 1729 MALKA SHERIFF Aug 18, 2017 19:43
[2017-08-18 20:00] VITALS: BP 136/77
[2017-08-18] MEDS: Dyna-Hex 2% Top Sol 2oz TOPIC SCH (20:45)
[2017-08-18] MEDS ORDERED: Epogen (for non ESRD use) SUBQ SCH (21:00)
[2017-08-18] MEDS ORDERED: Levemir Flexpen SUBQ SCH (21:15)
[2017-08-18] MEDS ORDERED: Levemir Flexpen SUBQ ONE (21:45)
[2017-08-18] MEDS ORDERED: NovoLOG Insulin Flexpen SUBQ ONE (22:00)
--- NOTE | 2017-08-18 22:45 | General Progress Note ---
Assessment/Plan Status: stable, progressing Assessment/Plan The pt is not a dts/dto -cont current meds Subjective Date patient seen: Aug 18, 2017 Neurologic/Psychiatric: Reports: anxiety, depressed, emotional problems Allergies: Coded Allergies: CEFEPIME (Verified Allergy, Intermediate, Rash, 01/23/13) Subjective the pt denied SI, no behavioral issues Objective Last 24 Hour Vital Signs Date Time Temp Pulse Resp B/P (MAP) Pulse Ox O2 Delivery O2 Flow Rate FiO2 08/18/17 22:06 151/69 08/18/17 20:46 88 136/77 08/18/17 20:00 97.1 88 19 136/77 99 Room Air 08/18/17 17:04 77 127/68 08/18/17 16:00 97.3 77 18 127/68 97 08/18/17 14:17 146/66 08/18/17 11:31 94.5 74 146/66 Room Air 08/18/17 08:32 73 161/80 08/18/17 08:31 73 161/80 08/18/17 08:10 98.3 73 19 161/80 98 Room Air 08/18/17 06:08 132/61 08/18/17 00:00 97.3 68 20 142/75 99 Intake and Output 08/17/17 08/18/17 19:00 07:00 Intake Total 1180 ml Output Total 750 ml 400 ml Balance 430 ml -400 ml Intake Oral 1180 ml Output Urine Total 750 ml 400 ml # Voids 1 Laboratory Tests 08/18/17 08:00: White Blood Count 9.1, Red Blood Count 3.09L, Hemoglobin 10.1L, Hematocrit 31.7L , Mean Corpuscular Volume 103H, Mean Corpuscular Hemoglobin 32.6H, Mean Corpuscular Hemoglobin Concent 31.7L, Red Cell Distribution Width 18.8H, Platelet Count 311, Mean Platelet Volume 6.6, Neutrophils (%) (Auto) 62.6, Lymphocytes (%) (Auto) 23.6, Monocytes (%) (Auto) 9.1, Eosinophils (%) (Auto) 4.0H, Basophils (%) (Auto) 0.7, Erythrocyte Sedimentation Rate 64H, Sodium Level 143, Potassium Level 3.8, Chloride Level 109H, Carbon Dioxide Level 20L, Anion Gap 14, Blood Urea Nitrogen 51H, Creatinine 4.6H, Estimat Glomerular Filtration Rate 13.0, Glucose Level 123#H, Calcium Level 9.2, Phosphorus Level 2.9, Magnesium Level 1.8, Total Bilirubin 0.4, Aspartate Amino Transf (AST/SGOT ) 28, Alanine Aminotransferase (ALT/SGPT) 30, Alkaline Phosphatase 93, C- Reactive Protein, Quantitative 1.5H, Total Protein 7.1, Albumin 3.0L, Globulin 4.1, Albumin/Globulin Ratio 0.7L 08/18/17 20:30: Glucose Level 780#*H Height (Feet): 5 Height (Inches): 8.00 Weight (Pounds): 209 General Appearance: no apparent distress, alert Neurologic: alert, oriented x 3, responsive, depressed affect Fatmata Lu M.D. Aug 18, 2017 22:45
[2017-08-18 23:57] VITALS: BP 140/51
[2017-08-19] VITALS (13 sets, daily range): BP systolic 127–171; BP diastolic 51–93
[2017-08-19] MEDS: HydrALAZINE 25mg tab ORAL SCH ×3 (05:50→21:18)
[2017-08-19] MEDS: NovoLOG Insulin Flexpen SUBQ SCH ×7 (05:51→20:49)
--- NOTE | 2017-08-19 08:31 | Cardiology Progress Note ---
Assessment/Plan Assessment/Plan 1. MSSA bacteremia, TTE was reviewed in details, there is no evidence of valvular vegetations, mild mitral regurgitation is evident. 2. Severe pulmonary HTN 3. Normal LV systolic function with LVEF at 55-60%. Consent has been obtained from the patient who is scheduled for AMY this morning. Subjective Subjective Had been made NPO. Denies chest pain or SOB. Objective Last 24 Hour Vital Signs Date Time Temp Pulse Resp B/P (MAP) Pulse Ox O2 Delivery O2 Flow Rate FiO2 08/19/17 05:50 137/66 08/19/17 04:00 98.1 68 19 127/51 93 Room Air 08/18/17 23:57 98.1 69 19 140/51 95 Room Air 08/18/17 22:06 151/69 08/18/17 20:46 88 136/77 08/18/17 20:00 97.1 88 19 136/77 99 Room Air 08/18/17 17:04 77 127/68 08/18/17 16:00 97.3 77 18 127/68 97 08/18/17 14:17 146/66 08/18/17 11:31 94.5 74 146/66 Room Air 08/18/17 08:32 73 161/80 08/18/17 08:31 73 161/80 Intake and Output 08/18/17 08/19/17 19:00 07:00 Intake Total 360 ml Output Total 1400 ml Balance 360 ml -1400 ml Intake Oral 360 ml Output Urine Total 1400 ml # Voids 4 3 2D Echo: EF 55-60%, Mild MR, Grade I LVDD, RVSP 55 mmHg no vegetations Laboratory Tests Test 08/18/17 20:30 Glucose Level 780 MG/DL (74-106) #*H Objective HEENT: Atraumatic, normocephalic. Anicteric. Pupils are equal, round, and reactive to light and accommodation. Extraocular muscles are intact. NECK: JVP less than 5 cm. No carotid bruits. Carotid upstrokes 2+ bilaterally. CARDIOVASCULAR: Normal S1, S2. Regular rate and rhythm. No murmurs, gallops, or rubs. PMI is at fourth intercostal space in the midclavicular line. LUNGS: Clear to auscultation bilaterally. ABDOMEN: Soft, nontender, and nondistended. No hepatosplenomegaly. Positive bowel sounds. EXTREMITIES: Multiple ulcerations throughout the limbs, some of them areas of denuded skin with presence of a dry blood as well as fresh blood. RED CHINCHILLA Aug 19, 2017 08:30
[2017-08-19] MEDS: DULoxetine 30mg cap ORAL SCH (08:35)
[2017-08-19] MEDS: Sodium Citrate 30ml ORAL SCH ×2 (08:35→17:57)
[2017-08-19] MEDS: Tamsulosin 0.4mg cap ORAL SCH ×2 (08:35→20:46)
[2017-08-19] MEDS: Docusate 100mg cap ORAL SCH ×3 (08:35→17:57)
[2017-08-19] MEDS: Heparin 5000 units/ml inj SUBQ SCH ×2 (08:36→20:47)
[2017-08-19] MEDS: Metoprolol Tartrate 50mg tab ORAL SCH ×2 (08:36→20:51)
[2017-08-19] MEDS: azaTHIOprine 50 MG TAB ORAL SCH (08:37)
[2017-08-19] MEDS: Levemir Flexpen SUBQ SCH ×2 (08:37→20:48)
--- NOTE | 2017-08-19 08:41 | Pre-Procedure Note/Attestation ---
Pre-Procedure Note/Attestation Complete Prior to Procedure Procedure Narrative: AMY Indications for Procedure Pre-Operative Diagnosis: MSSA bacteremia Attestation I attest that I discussed the nature of the procedure; its benefits; risks and complications; and alternatives (and the risks and benefits of such alternatives ), prior to the procedure, with the patient (or the patient's legal franchise sales representative). I attest that, if there was a reasonable possibility of needing a blood transfusion, the patient (or the patient's legal franchise sales representative) was given the [facility] standardized written summary, pursuant to the [place] Blood Safety Act ([place] Health and Safety Code # 1645, as amended). I attest that I re-evaluated the patient just prior to the surgery and that there has been no change in the patient's H&P, except as documented below: RED CHINCHILLA Aug 19, 2017 08:41
[2017-08-19] MEDS ORDERED: Propofol 1,000mg/ 100ml btl IV ONE (09:00)
[2017-08-19] MEDS ORDERED: LR 1000ml ONE (09:00)
[2017-08-19] MEDS ORDERED: Lidocaine 1% MPF 10mg/ml 5ml ONE (09:00)
[2017-08-19] MEDS ORDERED: LR 1000ml 1,000 ML IVLG SCH (09:11)
--- NOTE | 2017-08-19 09:11 | Anethesia Preoperative Eval ---
Anesthesia Pre-op PMH/ROS General Date of Evaluation: Aug 19, 2017 Time of Evaluation: 08:41 Anesthesiologist: Radha ASA Score: ASA 3 Mallampati Score Class I : Soft palate, uvula, fauces, pillars visible Class II: Soft palate, uvula, fauces visible Class III: Soft palate, base of uvula visible Class IV: Only hard plate visible Mallampati Classification: Class II Surgeon: Anthony Diagnosis: Bacteremia Surgical Procedure: AMY Anesthesia History: none Family History: no anesthesia problems Allergies: Coded Allergies: CEFEPIME (Verified Allergy, Intermediate, Rash, 01/23/13) Medications: see eMAR Past Medical History Cardiovascular: Reports: HTN, CAD - Angina, MT, other - HL, Gastrointestinal/Genitourinary: Reports: GERD, ESRD, other - BPH, UTI Neurologic/Psychiatric: Reports: depression/anxiety Endocrine: Reports: DM Hematology/Immune: Reports: anemia, DVT Anesthesia Pre-op Phys. Exam Physician Exam Last Vital Signs Date Time Temp Pulse Resp B/P (MAP) Pulse Ox O2 Delivery O2 Flow Rate FiO2 08/19/17 05:50 137/66 08/19/17 04:00 98.1 68 19 93 Room Air 08/12/17 18:46 21 Constitutional: NAD Neurologic: CN 2-12 intact Cardiovascular: RRR Respiratory: CTA Gastrointestinal: S/NT/ND Airway Exam Mallampati Score: Class II MO: limited ROM: limited Teeth: missing, intact Anesthesia Pre-op A/P Labs Chemistry Test 08/18/17 20:30 Glucose Level 780 MG/DL (74-106) #*H Risk Assessment & Plan Assessment: ASA 3 Plan: GA Status Change Before Surgery: Paolo Boothe MD Aug 19, 2017 09:11
--- NOTE | 2017-08-19 09:13 | Brief Operative Note ---
Immediate Post Operative Note Operative Note Pre-op Diagnosis: MSSA bacteremia Procedure: AMY Post-op Diagnosis: No valvular vegetations. Surgeon: Red Cruz MD Boiler Out: None Anesthesia: general Specimen: none Complications: none Condition: stable Fluids: N/A Estimated Blood Loss: none Drains: none Packing: N/A Implant(s) used?: RED Esquivel Aug 19, 2017 09:12
[2017-08-19] MEDS ORDERED: Atropine Inj 1mg/10ml Syr IV PRN (09:15)
[2017-08-19] MEDS ORDERED: DiphenhydrAMINE 50mg/ml Inj IVP PRN (09:15)
[2017-08-19] MEDS ORDERED: oxyCODONE HCL/Acetaminophen 5/325mg ORAL PRN (09:15)
[2017-08-19] MEDS ORDERED: HYDROcodone/Acetamin 7.5/325 tab ORAL PRN (09:15)
[2017-08-19] MEDS ORDERED: Hydromorphone 0.5mg/0.5ml inj IVP PRN (09:15)
[2017-08-19] MEDS ORDERED: LORazepam Inj 2mg/ml 1ml IV PRN (09:15)
[2017-08-19] MEDS ORDERED: fentaNYL 100 mcg/2 mL IV PRN (09:15)
[2017-08-19] MEDS ORDERED: Norco 5mg/325mg tab ORAL PRN (09:15)
[2017-08-19] MEDS ORDERED: Midazolam 2mg/2ml Inj IVP PRN (09:15)
--- NOTE | 2017-08-19 09:17 | Immediate Post-Op Evaluation ---
Immediate Post-Op Evalulation Immediate Post-Op Evalulation Procedure: AMY Date of Evaluation: Aug 19, 2017 Time of Evaluation: 09:39 IV Fluids: 200 LR Blood Products: 0 Estimated Blood Loss: 2 Urinary Output: 0 Blood Pressure Systolic: 170 Blood Pressure Diastolic: 80 Pulse Rate: 72 Respiratory Rate: 16 O2 Sat by Pulse Oximetry: 99 Temperature (Fahrenheit): 98 Pain Score (1-10): 1 Nausea: No Vomiting: No Complications 0 Patient Status: awake, reacts, patent, none Hydration Status: adequate Paolo Garcia MD Aug 19, 2017 09:17
--- NOTE | 2017-08-19 09:19 | 48 Hour Post Anesthesia Eval ---
Post Anesthesia Evaluation Procedure: AMY Date of Evaluation: Aug 19, 2017 Time of Evaluation: 11:53 Blood Pressure Systolic: 167 0: 79 Pulse Rate: 72 Respiratory Rate: 18 Temperature (Fahrenheit): 98.2 O2 Sat by Pulse Oximetry: 100 Airway: patent Nausea: No Vomiting: No Pain Intensity: 0 Hydration Status: adequate Cardiopulmonary Status: Stable Mental Status/LOC: patient returned to baseline Follow-up Care/Observations: 0 Post-Anesthesia Complications: 0 Follow-up care needed: ready to discharge Paolo Garcia MD Aug 19, 2017 09:19
--- NOTE | 2017-08-19 11:04 | Nephrology Progress Note ---
Assessment/Plan Problem List: (1) CKD (chronic kidney disease), stage III Assessment: cr at lowest 3.9 - 4 (2) Uncontrolled diabetes mellitus (3) BPH (benign prostatic hyperplasia) (4) Anemia (5) Nephropathy, diabetic (6) HTN (hypertension) Assessment Cr low 4.6 has CKD and was admitted for DM OOC BS is being managed by Endo Also has Bacteremia due to Pic[facility] line insertion at [facility] (1) CKD (chronic kidney disease), stage III, superimposed acute- Cr unchanged since last admit (2) Dehydration- Partly due to hyperglycemia (3) Hyperglycemia due to type 2 diabetes mellitus (4) BPH (benign prostatic hypertrophy) (5) Nephropathy, diabetic (6) History of simultaneous kidney and pancreas transplant (7) UTI (urinary tract infection) (8) Anemia of CKD Plan Plan: AMY today- no labs today add hydralazine for high BP BP and BS control- Flomax PO- monitor renal parameters Anemia [place] EPO SQ down on Bicitra Antibiotics for bacterimia ? Dc planning previous workup: 2D Echo: Left ventricular ejection fraction estimated to be 55 %. No evidence of left ventricular hypertrophy. Subjective ROS Limited/Unobtainable: No Constitutional: Reports: malaise Objective Objective Last 24 Hour Vital Signs Date Time Temp Pulse Resp B/P (MAP) Pulse Ox O2 Delivery O2 Flow Rate FiO2 08/19/17 10:45 98.4 77 17 149/68 99 Room Air 08/19/17 10:05 98.8 66 18 138/62 97 Room Air 08/19/17 09:50 66 18 134/64 98 Room Air 08/19/17 09:45 71 18 169/66 99 Room Air 08/19/17 09:40 98.0 72 18 165/71 100 Room Air 08/19/17 09:39 72 18 100 08/19/17 09:37 72 16 99 08/19/17 08:00 97.6 78 18 131/62 98 Room Air 08/19/17 05:50 137/66 08/19/17 04:00 98.1 68 19 127/51 93 Room Air 08/18/17 23:57 98.1 69 19 140/51 95 Room Air 08/18/17 22:06 151/69 08/18/17 20:46 88 136/77 08/18/17 20:00 97.1 88 19 136/77 99 Room Air 08/18/17 17:04 77 127/68 08/18/17 16:00 97.3 77 18 127/68 97 08/18/17 14:17 146/66 08/18/17 11:31 94.5 74 146/66 Room Air Intake and Output 08/18/17 08/19/17 19:00 07:00 Intake Total 360 ml Output Total 1400 ml Balance 360 ml -1400 ml Intake Oral 360 ml Output Urine Total 1400 ml # Voids 4 3 Laboratory Tests 08/18/17 20:30: Glucose Level 780#*H Height (Feet): 5 Height (Inches): 8.00 Weight (Pounds): 209 General Appearance: no apparent distress Respiratory/Chest: decreased breath sounds Abdomen: soft Objective no change BERT ALONSO Aug 19, 2017 11:04
--- NOTE | 2017-08-19 11:19 | Cardiac Electrophysiology PN ---
Assessment/Plan Assessment/Plan 1. Persistent bacteremia despite removal of the peripherally inserted central catheter line. MAY by Dr Cruz today showed no vegetations. On iv Abx 2. Hypertension. Continue hydralazine 25 mg tid, Norvasc 5 mg b.i.d. as well as metoprolol 50 mg b.i.d. 3. End-stage renal disease with history of hemodialysis in the past and currently is status post kidney transplant. The patient is on Imuran. 4. Anemia, could be due to renal failure. Subjective Subjective No chest pain or SOB. AMY showed no vegetations. Objective Last 24 Hour Vital Signs Date Time Temp Pulse Resp B/P (MAP) Pulse Ox O2 Delivery O2 Flow Rate FiO2 08/19/17 10:45 98.4 77 17 149/68 99 Room Air 08/19/17 10:05 98.8 66 18 138/62 97 Room Air 08/19/17 09:50 66 18 134/64 98 Room Air 08/19/17 09:45 71 18 169/66 99 Room Air 08/19/17 09:40 98.0 72 18 165/71 100 Room Air 08/19/17 09:39 72 18 100 08/19/17 09:37 72 16 99 08/19/17 08:00 97.6 78 18 131/62 98 Room Air 08/19/17 05:50 137/66 08/19/17 04:00 98.1 68 19 127/51 93 Room Air 08/18/17 23:57 98.1 69 19 140/51 95 Room Air 08/18/17 22:06 151/69 08/18/17 20:46 88 136/77 08/18/17 20:00 97.1 88 19 136/77 99 Room Air 08/18/17 17:04 77 127/68 08/18/17 16:00 97.3 77 18 127/68 97 08/18/17 14:17 146/66 08/18/17 11:31 94.5 74 146/66 Room Air Intake and Output 08/18/17 08/19/17 19:00 07:00 Intake Total 360 ml Output Total 1400 ml Balance 360 ml -1400 ml Intake Oral 360 ml Output Urine Total 1400 ml # Voids 4 3 Laboratory Tests Test 08/18/17 20:30 Glucose Level 780 MG/DL (74-106) #*H Objective HEAD AND NECK: No JVD. LUNGS: Clear. CARDIOVASCULAR: Regular S1 and S2 with no gallop or murmur. ABDOMEN: Soft. EXTREMITIES: There is no pitting edema. RED CAMARENA Aug 19, 2017 11:19
--- NOTE | 2017-08-19 13:10 | Internal Med Progress Note ---
Subjective Date of Service: Aug 19, 2017 Physician Name MaherDee Attending Physician Christopher Rosado MD Current Medications Medications (Trade) Dose Ordered Sig/Dunia Route PRN Reason Start Time Stop Time Status Last Admin Dose Admin Acetaminophen (Tylenol) 650 mg Q4H PRN ORAL fever 08/06/17 22:45 09/05/17 22:44 08/07/17 10:56 Acetaminophen/ Hydrocodone Bitart ([employer] 5/325) 1 tab Q1H PRN ORAL Mild Pain (Pain Scale 1-3) 08/19/17 09:15 08/19/17 15:00 Acetaminophen/ Hydrocodone Bitart ([employer] 7.5/325) 1 tab Q1H PRN ORAL Moderate Pain (Pain Scale 4-6) 08/19/17 09:15 08/19/17 15:00 Al Hydroxide/Mg Hydroxide (Mylanta) 15 ml Q1H PRN ORAL gi upset 08/19/17 09:15 08/19/17 15:00 Amlodipine Besylate (Norvasc) 5 mg BID ORAL 08/09/17 18:00 09/06/17 08:59 08/18/17 17:04 Atropine Sulfate (Atropine) 0.5 mg Q5M PRN IV HR <40 08/19/17 09:15 08/19/17 15:00 Azathioprine (Imuran) 50 mg DAILY ORAL 08/07/17 09:00 09/06/17 08:59 08/18/17 08:31 Chlorhexidine Gluconate (Eloisa-Hex 2%) 1 applic DAILY@2000 TOPIC 08/18/17 20:00 09/17/17 19:59 08/18/17 20:45 Clonidine HCl (Catapres Tab) 0.1 mg Q4H PRN ORAL sbp more than 160 08/06/17 22:45 09/05/17 22:44 08/12/17 11:57 Daptomycin 500 mg/ Sodium Chloride 55 ml @ 110 mls/hr Q48H IV 08/15/17 14:00 08/22/17 13:59 08/17/17 14:33 Dextrose (Dextrose 50%) STAT PRN IV Hypoglycemia 08/08/17 09:00 09/07/17 08:59 08/10/17 18:27 Diphenhydramine HCl (Benadryl) 25 mg Q15M PRN IVP Itching 08/19/17 09:15 08/19/17 15:00 Docusate Sodium (Colace) 100 mg TID ORAL 08/09/17 18:00 09/08/17 17:59 08/19/17 12:18 Duloxetine HCl (Cymbalta) 30 mg DAILY ORAL 08/07/17 09:00 09/06/17 08:59 08/18/17 08:35 Epoetin Jose (Procrit (for non ESRD use)) 7,500 units WED-WED-WED SUBQ 08/18/17 21:00 09/17/17 20:59 08/18/17 20:44 Fentanyl Citrate (Sublimaze 100 mcg/2 mL) 25 mcg Q10M PRN IV Moderate Pain (Pain Scale 4-6) 08/19/17 09:15 08/19/17 15:00 Finasteride (Proscar) 5 mg DAILY ORAL 08/07/17 09:00 09/06/17 08:59 08/18/17 08:31 Heparin Sodium (Porcine) (Heparin 5000 units/ml) 5,000 units EVERY 12 HOURS SUBQ 08/07/17 09:00 09/06/17 08:59 08/18/17 20:45 Hydralazine HCl (Apresoline) 5 mg Q30M PRN IV SBP>160 / DBP>90 08/19/17 09:15 08/19/17 15:00 Hydralazine HCl (Apresoline) 25 mg Q8HR ORAL 08/16/17 14:00 09/15/17 13:59 08/19/17 05:50 Hydromorphone HCl (Dilaudid) 0.5 mg Q15M PRN IVP Severe Pain (Pain Scale 7-10) 08/19/17 09:15 08/19/17 15:00 Insulin Aspart (NovoLOG) BEFORE MEALS AND HS SUBQ 08/10/17 21:00 09/09/17 20:59 08/19/17 12:19 Insulin Aspart (NovoLOG) 5 units NOVOTIAC SUBQ 08/12/17 06:30 09/11/17 06:29 08/19/17 12:20 Insulin Detemir (Levemir) 10 units Q12HR SUBQ 08/19/17 09:00 09/18/17 08:59 Lactated Ringer's 1,000 ml @ 10 mls/hr Q24H IVLG 08/19/17 09:11 08/19/17 15:00 Lorazepam (Ativan 2mg/ml 1ml) 1 mg Q15M PRN IV For Anxiety 08/19/17 09:15 08/19/17 15:00 Metoprolol Tartrate (Lopressor) 50 mg Q12HR ORAL 08/07/17 21:00 09/06/17 20:59 08/18/17 20:46 Midazolam HCl (Versed 2mg/2ml vial) 1 mg Q15M PRN IVP For Anxiety 08/19/17 09:15 08/19/17 15:00 Morphine Sulfate (Morphine Sulfate) 2 mg Q4H PRN IVP For Pain 08/14/17 15:45 08/21/17 15:44 Nitroglycerin (Ntg) 0.4 mg Q5M X 3 DOSES PRN SL Prn Chest Pain 08/06/17 22:45 09/05/17 22:44 Ondansetron HCl (Zofran) 4 mg Q1H PRN IVP Nausea & Vomiting 08/19/17 09:15 08/19/17 15:00 Ondansetron HCl (Zofran) 4 mg Q6H PRN IVP Nausea & Vomiting 08/06/17 22:45 09/05/17 22:44 Oxycodone/ Acetaminophen (Percocet 5-325) 1 tab Q1H PRN ORAL Severe Pain (Pain Scale 7-10) 08/19/17 09:15 08/19/17 15:00 Pantoprazole (Protonix) 40 mg DAILY ORAL 08/09/17 16:30 09/08/17 16:29 08/18/17 08:31 Polyethylene Glycol (Miralax) 17 gm HSPRN PRN ORAL Constipation 08/06/17 22:45 09/05/17 22:44 Sodium Citrate (Bicitra) 30 ml BID ORAL 08/16/17 18:00 09/09/17 11:59 08/18/17 17:04 Tamsulosin HCl (Flomax) 0.4 mg Q12HR ORAL 08/07/17 21:00 09/06/17 20:59 08/18/17 20:46 Temazepam (Restoril) 15 mg HSPRN PRN ORAL Insomnia 08/14/17 15:45 08/21/17 15:44 Allergies: Coded Allergies: CEFEPIME (Verified Allergy, Intermediate, Rash, 01/23/13) ROS Limited/Unobtainable: No Constitutional: Reports: no symptoms HEENT: Reports: no symptoms Cardiovascular: Reports: no symptoms Respiratory: Reports: no symptoms Gastrointestinal/Abdominal: Reports: no symptoms Genitourinary: Reports: no symptoms Neurologic/Psychiatric: Reports: no symptoms Subjective 62 YO M admitted with hyperglycemia. Now sepsis. Cover for Int Med-Dr Rosado.. S/P transesophageal echocardiogram 08/19/17 Objective Last Vital Signs Date Time Temp Pulse Resp B/P (MAP) Pulse Ox O2 Delivery O2 Flow Rate FiO2 08/19/17 12:00 98.7 80 18 152/69 98 Room Air 08/12/17 18:46 21 Laboratory Tests Test 08/18/17 20:30 Glucose Level 780 MG/DL (74-106) #*H Intake and Output 08/18/17 08/19/17 19:00 07:00 Intake Total 360 ml Output Total 1400 ml Balance 360 ml -1400 ml Intake Oral 360 ml Output Urine Total 1400 ml # Voids 4 3 Objective General Appearance: WD/WN, no apparent distress, alert Neck: non-tender, normal alignment, supple Cardiovascular: normal peripheral pulses, normal rate, regular rhythm, no gallop/murmur, no JVD Respiratory/Chest: chest wall non-tender, lungs clear, normal breath sounds, no respiratory distress, no accessory muscle use Extremities: normal range of motion, non-tender Neurologic: no motor/sensory deficits Skin: normal pigmentation, warm/dry Assessment/Plan Problem List: (1) Acute hyperglycemia Assessment & Plan: ? secondaary to infection? See ID and endocrinology note. (2) Uncontrolled diabetes mellitus Assessment & Plan: Continue levemir and novolog sliding scale per endocrinology (3) Anemia (4) CKD (chronic kidney disease), stage III Assessment & Plan: See nephrology note. (5) Hyperglycemia due to type 2 diabetes mellitus (6) CAD (coronary artery disease) (7) HTN (hypertension) Assessment & Plan: Cont lopressor and norvasc. (8) Acute hyperglycemia (9) Gastritis (10) BPH (benign prostatic hyperplasia) (11) Hypercholesteremia (12) Sepsis Assessment & Plan: Staph epidermidis. See ID note. Replace PICC. Continue daptomycin day #7/14 or longer if 2nd blood culture positive per ID. S/P Transesophageal echo 08/19/17 = no vegitations DEE MAHER Aug 19, 2017 13:10
[2017-08-19] MEDS: DAPTOmycin 500 MG in NS 55 ML IV SCH (15:12)
[2017-08-19] MEDS ORDERED: CUBICIN RF500 MG IV ×2 (16:03→16:06)
--- NOTE | 2017-08-19 17:57 | Pulmonology Progress Note ---
Assessment/Plan Problems: (1) Bacteremia (2) Uncontrolled diabetes mellitus (3) Anemia in chronic kidney disease (4) Psychiatric disturbance (5) Anemia (6) Renal transplant recipient Assessment/Plan pt is tachycardic will get EKG transfer to teli sliding scale iv fluids psych f/u diabetic diet f/u blood culture sensitivities f/u ID recommendations, on Daptomycin continue abx AMY done was negative Subjective ROS Limited/Unobtainable: No Interval Events: no new complains, pt is tachycardic Allergies: Coded Allergies: CEFEPIME (Verified Allergy, Intermediate, Rash, 01/23/13) Objective Last 24 Hour Vital Signs Date Time Temp Pulse Resp B/P (MAP) Pulse Ox O2 Delivery O2 Flow Rate FiO2 08/19/17 16:00 98.3 79 17 147/65 97 Room Air 08/19/17 15:06 135/63 08/19/17 12:00 98.7 80 18 152/69 98 Room Air 08/19/17 10:45 98.4 77 17 149/68 99 Room Air 08/19/17 10:05 98.8 66 18 138/62 97 Room Air 08/19/17 09:50 66 18 134/64 98 Room Air 08/19/17 09:45 71 18 169/66 99 Room Air 08/19/17 09:40 98.0 72 18 165/71 100 Room Air 08/19/17 09:39 72 18 100 08/19/17 09:37 72 16 99 08/19/17 08:00 97.6 78 18 131/62 98 Room Air 08/19/17 05:50 137/66 08/19/17 04:00 98.1 68 19 127/51 93 Room Air 08/18/17 23:57 98.1 69 19 140/51 95 Room Air 08/18/17 22:06 151/69 08/18/17 20:46 88 136/77 08/18/17 20:00 97.1 88 19 136/77 99 Room Air Intake and Output 08/18/17 08/19/17 19:00 07:00 Intake Total 360 ml Output Total 1400 ml Balance 360 ml -1400 ml Intake Oral 360 ml Output Urine Total 1400 ml # Voids 4 3 Objective General Appearance: WN Lines, tubes and drains: peripheral HEENT: normocephalic, atraumatic Neck: non-tender, normal alignment Respiratory/Chest: chest wall non-tender, lungs clear Cardiovascular/Chest: normal peripheral pulses, normal rate Abdomen: normal bowel sounds, non tender Genitourinary/Rectal: normal genital exam, normal rectal exam Skin Exam: normal pigmentation Laboratory Tests 08/18/17 20:30: Glucose Level 780#*H 08/19/17 16:53: Glucose Level [Pending] Current Medications Medications (Trade) Dose Ordered Sig/Dunia Route PRN Reason Start Time Stop Time Status Last Admin Dose Admin Acetaminophen (Tylenol) 650 mg Q4H PRN ORAL fever 08/06/17 22:45 09/05/17 22:44 08/07/17 10:56 Amlodipine Besylate (Norvasc) 5 mg BID ORAL 08/09/17 18:00 09/06/17 08:59 08/18/17 17:04 Azathioprine (Imuran) 50 mg DAILY ORAL 08/07/17 09:00 09/06/17 08:59 08/18/17 08:31 Chlorhexidine Gluconate (Eloisa-Hex 2%) 1 applic DAILY@2000 TOPIC 08/18/17 20:00 09/17/17 19:59 08/18/17 20:45 Clonidine HCl (Catapres Tab) 0.1 mg Q4H PRN ORAL sbp more than 160 08/06/17 22:45 09/05/17 22:44 08/12/17 11:57 Daptomycin 500 mg/ Sodium Chloride 55 ml @ 110 mls/hr Q48H IV 08/15/17 14:00 08/22/17 13:59 08/19/17 15:12 Dextrose (Dextrose 50%) STAT PRN IV Hypoglycemia 08/08/17 09:00 09/07/17 08:59 08/10/17 18:27 Docusate Sodium (Colace) 100 mg TID ORAL 08/09/17 18:00 09/08/17 17:59 08/19/17 12:18 Duloxetine HCl (Cymbalta) 30 mg DAILY ORAL 08/07/17 09:00 09/06/17 08:59 08/18/17 08:35 Epoetin Jose (Procrit (for non ESRD use)) 7,500 units MON-WED-FRI SUBQ 08/18/17 21:00 09/17/17 20:59 08/18/17 20:44 Finasteride (Proscar) 5 mg DAILY ORAL 08/07/17 09:00 09/06/17 08:59 08/18/17 08:31 Heparin Sodium (Porcine) (Heparin 5000 units/ml) 5,000 units EVERY 12 HOURS SUBQ 08/07/17 09:00 09/06/17 08:59 08/18/17 20:45 Hydralazine HCl (Apresoline) 25 mg Q8HR ORAL 08/16/17 14:00 09/15/17 13:59 08/19/17 15:06 Insulin Aspart (NovoLOG) BEFORE MEALS AND HS SUBQ 08/10/17 21:00 09/09/17 20:59 08/19/17 17:01 Insulin Aspart (NovoLOG) 5 units NOVOTIAC SUBQ 08/12/17 06:30 09/11/17 06:29 08/19/17 17:05 Insulin Detemir (Levemir) 10 units Q12HR SUBQ 08/19/17 09:00 09/18/17 08:59 Metoprolol Tartrate (Lopressor) 50 mg Q12HR ORAL 08/07/17 21:00 09/06/17 20:59 08/18/17 20:46 Morphine Sulfate (Morphine Sulfate) 2 mg Q4H PRN IVP For Pain 08/14/17 15:45 08/21/17 15:44 Nitroglycerin (Ntg) 0.4 mg Q5M X 3 DOSES PRN SL Prn Chest Pain 08/06/17 22:45 09/05/17 22:44 Ondansetron HCl (Zofran) 4 mg Q6H PRN IVP Nausea & Vomiting 08/06/17 22:45 09/05/17 22:44 Pantoprazole (Protonix) 40 mg DAILY ORAL 08/09/17 16:30 09/08/17 16:29 08/18/17 08:31 Polyethylene Glycol (Miralax) 17 gm HSPRN PRN ORAL Constipation 08/06/17 22:45 09/05/17 22:44 Sodium Citrate (Bicitra) 30 ml BID ORAL 08/16/17 18:00 09/09/17 11:59 08/18/17 17:04 Tamsulosin HCl (Flomax) 0.4 mg Q12HR ORAL 08/07/17 21:00 09/06/17 20:59 08/18/17 20:46 Temazepam (Restoril) 15 mg HSPRN PRN ORAL Insomnia 08/14/17 15:45 08/21/17 15:44 MARGO GALLEGOS Aug 19, 2017 17:57
--- NOTE | 2017-08-19 20:15 | Progress Note ---
DATE: 08/19/2017 SUBJECTIVE: The patient is more irritable, withdrawn. Was asleep, arousable. He snapped one of the doctors. MENTAL STATUS EXAMINATION: The patient is alert and oriented times self, place, and situation he is in. Mood is neutral. Affect is flat. Congruent with mood. Thought process is concrete. Thought content, no suicidal or homicidal ideations. ASSESSMENT: Depression. PLAN: 1. We will continue the Cymbalta. 2. Provide the patient with supportive therapy and reality orientation. Fatmata Lu M.D. DR: PENELOPE JOB#: [id number] CC:
[2017-08-19] MEDS: Dyna-Hex 2% Top Sol 2oz TOPIC SCH (20:46)
[2017-08-19] MEDS ORDERED: NS 275ml ONE (22:49)
[2017-08-19] MEDS ORDERED: Tubing IV Secondary IV ONE (22:49)
--- NOTE | 2017-08-20 16:35 | Cardiology Report ---
APPROVED REPORT EKG Measurement Heart [id number] HI [id number] Normal sinus rhythm Left anterior fascicular block Abnormal ECG
--- NOTE | 2017-08-20 18:19 | Discharge Summary ---
Discharge Summary Hospital Course Date of Admission Aug 06, 2017 at 21:36 Date of Discharge Aug 19, 2017 at 22:50 Admitting Diagnosis uncontrolled diabetes HPI Paul Urrutia is a 62 year old male who was admitted on Aug 06, 2017 at 21: 36 for Uncontrolled Diabetes Hospital Course [id number] Discharge Discharge Disposition Patient was discharged to SNF/Subacute Facility(03) Discharge Diagnoses: Lny Diaz NP Aug 20, 2017 18:19
--- NOTE | 2017-08-21 05:15 | Discharge Summary 2 SIG ---
DATE OF ADMISSION: 08/06/2017 DATE OF DISCHARGE: 08/19/2017 CONSULTANTS: 1. Monique Read M.D. 2. Esdras Delgado M.D. 3. Luis Chambers M.D. 4. Fatmata Lu M.D. 5. Ronald Callejas M.D. 6. Ronald Cruz M.D. 7. Modesto Jacques M.D. BRIEF HOSPITAL COURSE: The patient is a 62-year-old white male with history of insulin-dependent diabetes presented to ED for hyperglycemia. He is a resident of [facility] and according to staff, blood glucose was elevated. The patient was then transferred to [facility] and was found to have venous blood glucose of 503. He was admitted for hyperglycemia. He was continued on Lantus and NovoLog. Blood glucose was monitored. He came in febrile with leukocytosis. WBC was 12. He was given IV daptomycin and Azactam. He had rapid swab for influenza that was negative. He was pancultured. Blood culture showed growth of Staphylococcus epidermidis. Bacteremia probably secondary to infected PICC line, which was present on admission. PICC line was removed on 08/09/2017, however, there was persistent bacteremia. The patient had chronic kidney disease stage 3 and has acute kidney disease. He had dehydration partly due to hyperglycemia. Renal ultrasound done showed left iliac fossa transplant kidney and surgically absent bilateral venetie kidneys, negative for hydronephrosis. His diabetes is very labile, as he has a type 1 diabetes, however, glucose values most part were fairly acceptable. He was continued on Levemir 10 mg b.i.d. and NovoLog 5 units before meals t.i.d. Due to persistent bacteremia and evaluation of endocarditis, the patient underwent transesophageal echocardiogram by Dr. Cruz. AMY did not show any vegetations. He was continued on hydralazine 25 mg t.i.d., Norvasc 5 mg b.i.d., and metoprolol 50 mg b.i.d. He was eventually cleared for discharge to continue IV antibiotics for minimum of 4 weeks from the first negative blood culture, which was done on 08/13/2017. FINAL DIAGNOSES: 1. Persistent Staphylococcus epidermidis bacteremia, present on admission. 2. Uncontrolled diabetes, due to sepsis. 3. Pyuria. 4. Chronic kidney disease, stage 3. 5. Acute on chronic renal failure. 6. Anemia of chronic disease. 7. Depression. 8. Hypertension. 9. BPH. 10. Diabetes type 1 with diabetic nephropathy. 11. History of kidney and pancreas transplant. 12. Dehydration. 13. Hyperkalemia. DISPOSITION: The patient was discharged to [facility]. DISCHARGE MEDICATIONS: Refer to medication list. Continue with antibiotics for 22 days. Esdras Delgado M.D. I have been assigned to dictate discharge summary on this account and I was not involved in the patient's management. Lyn Diaz N.P. DR: SHAHRAM JOB#: [id number] CC: ELOY
--- NOTE | 2017-08-25 15:00 | Procedure Note ---
DATE OF PROCEDURE: 08/19/2017 TRANSESOPHAGEAL ECHOCARDIOGRAPHY REFERRING PHYSICIAN: Jose Glasgow M.D. REASON FOR PREOPERATIVE DIAGNOSES: Methicillin-sensitive Staphylococcus aureus bacteremia with severe pulmonary hypertension. POSTOPERATIVE DIAGNOSES: 1. No evidence of valvular vegetations. 2. Normal left ventricular systolic function. 3. No evidence of thrombus within the left atrial appendage. RECOMMENDATION: The patient's diagnosis of infective endocarditis is ruled out based on this study, we will have Infectious Disease specialist to determine the course of antibiotic therapy for the above bacteremia. DESCRIPTION OF PROCEDURE: The risks, benefits, and alternatives of the procedure were explained to the patient in detail. The informed consent was signed by the patient and was placed in the chart. The patient was brought down to the OR room #6 in a fasting state. He was placed in the left lateral decubitus position. Initially, the bite block was inserted. At the presence of anesthesiologist and using general anesthetic agents, the patient was put into deep anesthesia. Transesophageal echocardiography probe was advanced through the bite block, passed through pharyngeal wall, and was secured in the midesophageal area at a distance just about 35 cm from the incisors teeth. After review of the heart structure, the probe was removed. The patient tolerated the procedure well without having any complications. There was no blood loss. CONCLUSION: This study shows no evidence of infective endocarditis. Ronald Cruz M.D. DR: CESIA JOB#: [id number] CC:
== END 2017-08-19 22:50 | disposition short-term general hospital (02) | DRG 314 ==
LOC: EDBD 19:33 → EMR 20:10 → EDBEDREQ 20:41 → 4E 21:36 → 2E 08-19 18:40 → 4E 08-19 18:45
PROC: B548ZZA Ultrasonography of Superior Vena Cava, Guidance (ICD-10-PCS; principal; 2017-08-18)
PROC: 02HV33Z Insertion of Infusion Device into Superior Vena Cava, Percutaneous Approach (ICD-10-PCS; principal; 2017-08-18)
PROC: B24BZZ4 Ultrasonography of Heart with Aorta, Transesophageal (ICD-10-PCS; 2017-08-19)
DX: T80.211A Bloodstream infection due to central venous catheter, initial encounter (principal); A41.1 Sepsis due to other specified staphylococcus; A41.01 Sepsis due to Methicillin susceptible Staphylococcus aureus; N17.9 Acute kidney failure, unspecified; Z94.83 Pancreas transplant status; E11.21 Type 2 diabetes mellitus with diabetic nephropathy; N18.3 Chronic kidney disease, stage 3 (moderate); Z94.0 Kidney transplant status; N39.0 Urinary tract infection, site not specified; N13.30 Unspecified hydronephrosis; N25.81 Secondary hyperparathyroidism of renal origin; I27.20 Pulmonary hypertension, unspecified; E11.65 Type 2 diabetes mellitus with hyperglycemia; Z79.4 Long term (current) use of insulin; I12.9 Hypertensive chronic kidney disease with stage 1 through stage 4 chronic kidney disease, or unspecified chronic kidney disease; D63.1 Anemia in chronic kidney disease; E11.22 Type 2 diabetes mellitus with diabetic chronic kidney disease; Z66 Do not resuscitate; Z86.73 Personal history of transient ischemic attack (TIA), and cerebral infarction without residual deficits; I25.2 Old myocardial infarction; I25.10 Atherosclerotic heart disease of native coronary artery without angina pectoris; F31.9 Bipolar disorder, unspecified; E86.0 Dehydration; Z79.01 Long term (current) use of anticoagulants; Z79.82 Long term (current) use of aspirin; E87.5 Hyperkalemia; E78.00 Pure hypercholesterolemia, unspecified; Z86.010 Personal history of colon polyps; Z91.5 Personal history of self-harm; N40.1 Benign prostatic hyperplasia with lower urinary tract symptoms; K29.70 Gastritis, unspecified, without bleeding; H54.62 Unqualified visual loss, left eye, normal vision right eye; I70.0 Atherosclerosis of aorta; I34.8 Other nonrheumatic mitral valve disorders; F25.9 Schizoaffective disorder, unspecified
CPT/HCPCS: 36415; 36569; 71045; 76775; 76937; 80048; 80053; 80061; 81001; 82150; 82550; 82607; 82728; 82947; 82962; 82977; 83036; 83735; 83880; 84100; 84443; 84484; 84550; 85025; 85651; 86140; 86710; 87040; 87070; 87086; 87181; 93005; 93306; 93312; 94003; 94150; 94664; 99285; J1815; S5561

== ENCOUNTER 2017-09-27 10:39 | Inpatient (IN) | payer MEDICARE, MEDICAID ==
[~2017-09-27] VITALS: Ht 175.3 cm; Wt 86.2 kg
[~2017-09-27 10:39] MED LIST changes: +CUBICIN RF500 MG IV
[2017-09-27 11:12] LABS: BASOPHILS % (AUTO) 0.4 % (0.0-2.0); HEMATOCRIT 28.7 % (42.0-52.0); HEMOGLOBIN 9.1 G/DL (14.2-18.0); LYMPHOCYTES % (AUTO) 9.2 % (20.0-45.0); MEAN CORPUSCULAR VOLUME 96 FL (80-99); MONOCYTES % (AUTO) 5.7 % (1.0-10.0); NEUTROPHILS % (AUTO) 83.8 % (45.0-75.0); PLATELET COUNT 262 K/UL (150-450); RED CELL DISTRIBUTION WIDTH 16.1 % (11.6-14.8)
[2017-09-27 11:29] LABS: ANION GAP 11 mmol/L (5-15); BLOOD UREA NITROGEN 71 mg/dL (7-18); CALCIUM 7.9 MG/DL (8.5-10.1); CARBON DIOXIDE 21 MMOL/L (21-32); CHLORIDE 103 MMOL/L (98-107); CREATININE 5.7 MG/DL (0.55-1.30); SODIUM 135 MMOL/L (136-145)
[2017-09-27 11:39] VITALS: BP 147/74
[2017-09-27 11:44] LABS: ALANINE AMINOTRANSFERASE 11 U/L (12-78); ALBUMIN 2.3 G/DL (3.4-5.0); ALBUMIN/GLOBULIN RATIO 0.6 (1.0-2.7); ALKALINE PHOSPHATASE 85 U/L (46-116); ASPARTATE AMINO TRANSFERASE 11 U/L (15-37); BILIRUBIN,TOTAL 0.4 MG/DL (0.2-1.0); CKMB 0.7 NG/ML (0.0-3.6); CREATINE KINASE 56 U/L (26-308)
[2017-09-27] MEDS ORDERED: Morphine Sulfate 4mg/ml Inj IVP ONE (11:45)
[2017-09-27 13:47] VITALS: BP 136/60
--- NOTE | 2017-09-27 14:52 | Diagnostic Imaging Report ---
Indication: Abdominal pain, groin pain, blood in urine Technique: Spiral acquisitions obtained through the abdomen and pelvis. No oral contrast utilized, per emergency room physician request No IV contrast utilized, per referring physician request.. Multiplanar reconstructions were generated. Total dose length product 830.38 and 869 mGycm. CTDIvol(s) 15.47 and 17.9 mGy. Dose reduction achieved using automated exposure control Comparison: 12/25/2016 Findings: Mixed, mostly high, attenuation material, presumably blood, is seen surrounding the penile shaft, predominantly to the right of it and inferior to it, and extending to and beyond the glans penis. There is also marked infiltration and resultant thickening of the scrotal skin, which is somewhat lower in attenuation than the peripenile abnormality. There is also extensive of ecchymosis into the subcutaneous fat of the pubic region and to a lesser extent into the fat of the perineum. There is obscuration of the corpus spongiosum. The corpora cavernosa appear better delineated than the corpus spongiosum. An area of lower attenuation slightly inferior and to the left of the penile shaft is seen, probably just represents heterogeneous elements within the echymosis/hematoma. These findings are all new since the previous study. There is a small right hydrocele. This demonstrates fluid attenuation Lack of IV contrast limits assessment of the solid organs. The patient is status post bilateral nephrectomy. There is a transplant kidney in the left iliac fossa. This demonstrates hydronephrosis and hydroureter that extends all the way to the ureterovesical junction on the first acquisition. There is considerable perinephric fat stranding, considerably increased from the previous study. There is a left renal cyst again demonstrated, as well as a smaller lower pole cyst. No renal or ureteral calculi. The bladder is markedly distended, considerably more so than on the prior exam. It demonstrates what appears to be a very large diverticulum coming off of the superolateral wall to the right. However, a surgical staple line at the anterior border of the apparent diverticulum indicates that this could be at least in part postsurgical. The patient was recalled for repeat imaging of the penis and scrotum, and the repeat images demonstrate less bladder distention, presumably indicating interim voiding, and decreased hydronephrosis/hydroureter. Again demonstrated are multiple gallstones. The liver, bile ducts, pancreas, spleen, adrenals are unremarkable. No retroperitoneal or mesenteric mass or adenopathy. There is evidence of prior anterior abdominal wall hernia mesh repair. The appendix is normal. There is no evidence of diverticulosis or diverticulitis. No free or loculated intraperitoneal air or fluid. The distal esophagus, stomach, duodenum are unremarkable. Lung bases demonstrate some posterior dependent atelectatic changes are otherwise clear the bones demonstrate degenerative spondylosis changes. There is an old healed fracture deformity of the anterolateral eighth rib on the right Impression: Evidence of extensive hemorrhage around the penile shaft, extending into the adjacent subcutaneous fat. Marked edema and/or ecchymosis of the scrotal wall also demonstrated. There is also a small right hydrocele. Etiology of the hemorrhage uncertain, urethral injury a possibility. Per discussion with referring physician, there is evidence of cellulitis as well as urinary bleeding; findings are concordant with this. There is no soft tissue gas to suggest infection with gas-forming organism Markedly distended urinary bladder, which is less distended on the second acquisition. This probably indicates interim voiding with a considerable postvoid residual. There is evidence of a large bladder diverticulum which may be in part postsurgical Left iliac fossa transplant kidney hydronephrosis, which is somewhat but not completely improved on the second acquisition with the lower bladder volume. Presumably related to the bladder distention as no other obstructing lesion is demonstrated. Extensive perinephric edema, possibly related to the above. Possibility of superimposed nephritis should also be considered. Cholelithiasis, also previously reported Evidence of prior abdominal wall hernia mesh repair Incidental findings as noted, including old right eighth rib fracture, dependent pulmonary atelectatic changes Findings discussed by phone with Dr. Breen in the emergency room at the time of interpretation The CT scanner at [facility] is accredited by the [employer] and the scans are performed using protocols designed to limit radiation exposure to as low as reasonably achievable to attain images of sufficient resolution adequate for diagnostic evaluation.
--- NOTE | 2017-09-27 14:53 | Diagnostic Imaging Report ---
Indication: Shortness of breath Technique: One view of the chest Comparison: 08/10/2017 Findings: Left arm PICC is now present. Lungs and pleural spaces are clear. The heart size is normal. Impression: PICC. No acute process
[2017-09-27 15:19] LABS: APPEARANCE,URINE CLEAR; BILIRUBIN, URINE NEGATIVE (NEGATIVE); GLUCOSE, URINE (UA) 2+ (NEGATIVE); KETONES,URINE NEGATIVE (NEGATIVE); LEUKOCYTE ESTERASE ,URINE 3+ (NEGATIVE); NITRITE,URINE POSITIVE (NEGATIVE); PH,URINE 9 (4.5-8.0); PROTEIN,URINE 2+ (NEGATIVE); UROBILINOGEN,URINE NORMAL MG/DL (0.0-1.0)
[2017-09-27 15:23] LABS: COLOR,URINE BROWN
[2017-09-27 16:28] VITALS: BP 148/67
--- NOTE | 2017-09-27 18:03 | Emergency Room Report ---
History of Present Illness General Chief Complaint: General Complaint Source: Patient Present Illness HPI Patient is a 62-year-old male who presented after increased hematuria. Patient prior history of renal transplant. Patient had the prior history of confusion. The patient previously stated that he did not want dialysis. Patient was noted to be DO NOT RESUSCITATE.The patient is followed by Dr. 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 Hx Seizures: No Hx Epilepsy: No Hx Multiple Sclerosis: No Hx Cerebral Palsy: No Hx Amyotrophic Lat Sclerosis: No Hx [place] Syndrome: No Hx Paralysis: No Hx Peripheral Neuropathy: No Hx Spinal Cord Injury: No Hx Head Trauma: No Hx Traumatic Brain Injury: No Hx Memory Loss: No Hx Concentration Difficulty: No Hx Speech Problem: No Hx Tremors: No Hx Vertigo: No Hx Dizziness: Yes Hx Syncope: No Hx Headaches: No Hx Aphasia: No Hx Dysphasia: No Hx Numbness: No Hx Weakness: No Hx Fatigue: No Hx Neurologic Surgery: No Hx Brain Shunt: No Review of Systems All Other Systems: limited - by altered mental status Physical Exam Vital Signs Date Time Temp Pulse Resp B/P (MAP) Pulse Ox O2 Delivery O2 Flow Rate FiO2 09/27/17 10:39 97.3 73 20 148/81 99 Room Air 97.3 Sp02 EP Interpretation: reviewed, normal General Appearance: normal inspection, well appearing, no apparent distress, alert, Chronically Ill Head: atraumatic ENT: normal ENT inspection, hearing grossly normal, normal voice Neck: normal inspection, full range of motion, supple, no bony tend Respiratory: normal inspection, lungs clear, normal breath sounds, no respiratory distress, no retraction, no wheezing Cardiovascular #1: regular rate, rhythm, no edema Gastrointestinal: normal inspection, normal bowel sounds, non tender, soft, no guarding, no hernia Genitourinary: other - scrotal edema and tenderness Musculoskeletal: normal inspection, back normal, normal range of motion Neurologic: normal inspection, alert, responsive, speech normal Psychiatric: normal inspection, judgement/insight normal, mood/affect normal Skin: normal inspection, normal color, no rash Medical Decision Making Diagnostic Impression: Primary Impression: DM (diabetes mellitus) Additional Impressions: Chronic kidney disease (CKD) Hydronephrosis Transplant recipient ER Course Patient presented for abdominal pain. Differential diagnoses included ischemic bowel, appendicitis, perforated viscus, abdominal aortic aneurysm, inferior myocardial infarction, viral gastroenteritis Because of complexity of patient's case laboratory testing and imaging studies were ordered. CT the abdomen pelvis read by radiology showed evidence of scrotal edema and clot near penis. The patient was started on IV antibiotics. Dr. Christopher Rosado was contacted for inpatient management due to primary care physician. Dr. Mccain was contacted for urology consult Labs Test 09/27/17 10:58 09/27/17 13:32 09/27/17 14:46 White Blood Count 9.0 K/UL (4.8-10.8) Red Blood Count 3.00 M/UL (4.70-6.10) Hemoglobin 9.1 G/DL (14.2-18.0) Hematocrit 28.7 % (42.0-52.0) Mean Corpuscular Volume 96 FL (80-99) Mean Corpuscular Hemoglobin 30.3 PG (27.0-31.0) Mean Corpuscular Hemoglobin Concent 31.7 G/DL (32.0-36.0) Red Cell Distribution Width 16.1 % (11.6-14.8) Platelet Count 262 K/UL (150-450) Mean Platelet Volume 6.4 FL (6.5-10.1) Neutrophils (%) (Auto) 83.8 % (45.0-75.0) Lymphocytes (%) (Auto) 9.2 % (20.0-45.0) Monocytes (%) (Auto) 5.7 % (1.0-10.0) Eosinophils (%) (Auto) 1.0 % (0.0-3.0) Basophils (%) (Auto) 0.4 % (0.0-2.0) Sodium Level 135 MMOL/L (136-145) Potassium Level 5.0 MMOL/L (3.5-5.1) Chloride Level 103 MMOL/L (98-107) Carbon Dioxide Level 21 MMOL/L (21-32) Anion Gap 11 mmol/L (5-15) Blood Urea Nitrogen 71 mg/dL (7-18) Creatinine 5.7 MG/DL (0.55-1.30) Estimat Glomerular Filtration Rate 10.1 mL/min (>60) Glucose Level 352 MG/DL (74-106) Calcium Level 7.9 MG/DL (8.5-10.1) Total Bilirubin 0.4 MG/DL (0.2-1.0) Aspartate Amino Transf (AST/SGOT) 11 U/L (15-37) Alanine Aminotransferase (ALT/SGPT) 11 U/L (12-78) Alkaline Phosphatase 85 U/L (46-116) Total Creatine Kinase 56 U/L (26-308) Creatine Kinase MB 0.7 NG/ML (0.0-3.6) Creatine Kinase MB Relative Index 1.2 Troponin I 0.001 ng/mL (0.000-0.056) Total Protein 6.4 G/DL (6.4-8.2) Albumin 2.3 G/DL (3.4-5.0) Globulin 4.1 g/dL Albumin/Globulin Ratio 0.6 (1.0-2.7) Lactic Acid Level 1.50 mmol/L (0.66-2.22) Urine Color Brown Urine Appearance Clear Urine pH 9 (4.5-8.0) Urine Specific [place] 1.015 (1.005-1.035) Urine Protein 2+ (NEGATIVE) Urine Glucose (UA) 2+ (NEGATIVE) Urine Ketones Negative (NEGATIVE) Urine Occult Blood 5+ (NEGATIVE) Urine Nitrite Positive (NEGATIVE) Urine Bilirubin Negative (NEGATIVE) Urine Urobilinogen Normal MG/DL (0.0-1.0) Urine Leukocyte Esterase 3+ (NEGATIVE) Urine RBC 5-10 /HPF (0 - 0) Urine WBC 2-4 /HPF (0 - 0) Urine Squamous Epithelial Cells None /LPF (NONE/OCC) Urine Bacteria Few /HPF (NONE) Last Vital Signs Date Time Temp Pulse Resp B/P (MAP) Pulse Ox O2 Delivery O2 Flow Rate FiO2 09/27/17 16:28 98.3 65 14 148/67 100 Room Air 98.3 Status: unchanged Disposition: ADMITTED INPATIENT Condition: Serious Referrals: Christopher Rosado MD (PCP) Gordy Breen Sep 27, 2017 18:03
[2017-09-27 18:11] VITALS: BP 117/72
[2017-09-27 18:50] VITALS: BP 161/79
[2017-09-27] MEDS ORDERED: Morphine Sulfate 2mg/ml Inj IVP PRN (19:15)
[2017-09-27] MEDS ORDERED: Miralax 17gm pkt ORAL PRN (19:15)
[2017-09-27] MEDS ORDERED: Albuterol/Ipratropium 3ml neb HHN PRN (19:15)
[2017-09-27] MEDS ORDERED: Nitroglycerin Subl 0.4mg tab SL PRN (19:30)
[2017-09-27 20:00] VITALS: BP 162/82
--- NOTE | 2017-09-27 20:01 | Consultation ---
History of Present Illness General Date patient seen: Sep 27, 2017 Time patient seen: 19:56 Chief Complaint: General Complaint Referring physician: Jamshid Reason for Consultation: retention Present Illness HPI 62 yo male, retirement dependent, comes to ER with report of penile swelling and hematuria. Difficulty urinating, although patient denies it. States he voids fine. He may or may not have fallen earlier today. Otherwise he is a pleasantly poor historian. Allergies: Coded Allergies: CEFEPIME (Verified Allergy, Intermediate, Rash, 01/23/13) Medication History Scheduled Amlodipine Besylate (Norvasc), 5 MG ORAL DAILY, (Reported) Aspirin* (Aspirin*), 81 MG ORAL DAILY Atorvastatin Calcium* (Lipitor*), 10 MG ORAL BEDTIME Atorvastatin Calcium* (Lipitor*), 10 MG ORAL BEDTIME, (Reported) Azathioprine (Azathioprine), 50 MG ORAL DAILY Azathioprine* (Imuran*), 50 MG PO DAILY, (Reported) Cholecalciferol (Vitamin D3)* (Vitamin D*), 5,000 INTLU ORAL Mo@09 Cranberry Fruit Concentrate (Cranberry), 450 MG PO DAILY, (Reported) Daptomycin (Cubicin Rf), MG IV 48 hrs, (Reported) Daptomycin (Cubicin Rf), 500 MG IV 48 hrs, (Reported) Docusate Sodium* (Colace*), 100 MG ORAL TWICE A DAY Doxycycline Hyclate (Doxycycline Hyclate), 100 MG PO BID Duloxetine Hcl* (Cymbalta*), 30 MG ORAL DAILY, (Reported) Epoetin Jose (Epogen), 10,000 UNIT SUBQ THREE TIMES A WEEK, (Reported) Ertapenem Sodium* (INVanz*), 1 GM IVPB Q24H, (Reported) Ferrous Sulfate* (Ferrous Sulfate*), 325 MG ORAL DAILY, (Reported) Finasteride (Finasteride), 5 MG ORAL DAILY Insulin Aspart (Novolog Flexpen), 10 UNITS SUBQ NOVOTIAC Insulin Aspart (Novolog Flexpen), 0 UNITS SUBQ BEFORE MEALS AND HS Insulin Aspart (Novolog Flexpen), 5 SQ AC, (Reported) Insulin Detemir (Levemir Flexpen), 15 UNITS SUBQ BID Insulin Glargine (Lantus), 6 SUBQ BID, (Reported) Insulin Glargine (Lantus), 10 SUBQ DAILY, (Reported) Insulin Glargine (Lantus), 6 SUBQ BEDTIME, (Reported) Insulin Lispro (Humalog), 4 SUBQ AC, (Reported) Linezolid (Zyvox), 600 MG IVPB EVERY 12 HOURS, (Reported) Metoprolol Succinate* (Metoprolol Succinate*), 50 MG ORAL Q12HR, (Reported) Omeprazole (Omeprazole), 40 MG ORAL DAILY, (Reported) Pantoprazole* (Protonix*), 40 MG ORAL DAILY Polyethylene Glycol* (Miralax*), 17 GM ORAL BEDTIME Sevelamer Carbonate* (Renvela*), 800 MG ORAL THREE TIMES A DAY, (Reported) Sodium Citrate (Sod Citrate-Citric Acid Soln), 30 ML ORAL THREE TIMES A DAY Tamsulosin HCl (Flomax), 0.4 MG ORAL BID, (Reported) Tamsulosin Hcl (Tamsulosin Hcl*), 0.4 MG ORAL BEDTIME Vit B Complex & C No.13/Fa/D3 (Nephrocaps Qt Tablet), 1 EACH PO DAILY, (Reported ) Vitamin D (Vitamin D3), 5,000 UNITS ORAL DAILY, (Reported) Warfarin Sod* (Coumadin*), 4 MG ORAL DAILY, (Reported) Scheduled PRN Acetaminophen (Acetaminophen), 650 MG ORAL Q6H PRN for Prn Headache/Temp > 101, (Reported) Ipratropium/Albuterol Sulfate (DuoNeb 0.5-3(2.5)mg/3ml), 3 ML HHN Q4HRT PRN for Shortness of Breath Ondansetron (Zofran), 4 MG ORAL Q6H PRN for Nausea & Vomiting, (Reported) [Warfarin RX monitoring], 1 EA MISC DAILY PRN for Per rx protocol Miscellaneous Medications Citric Acid/Sodium Citrate (Cytra-2 Oral Solution), 30 ML PO, (Reported) [Novolog ss], (Reported) Patient History Limited by: medical condition History Provided By: Medical Record Healthcare decision maker Resuscitation status Advanced Directive on File Past Medical/Surgical History Past Medical/Surgical History: (1) Hematuria (2) BPH (benign prostatic hypertrophy) (3) DKA (diabetic ketoacidoses) (4) Hyponatremia (5) Retention, urine (6) Uncontrolled diabetes mellitus (7) ESRD (end stage renal disease) Review of Systems Constitutional: Denies: no symptoms, see HPI, chills, sweats, fever, malaise, weakness, other All Other Systems: negative except mentioned in HPI Physical Exam General Appearance: no apparent distress Neck: supple Respiratory/Chest: lungs clear Cardiovascular/Chest: normal rate Abdomen: soft Genitourinary/Rectal: other - ecchymotic swelling to penis, scrotum, unable to visualize glans penis Last 24 Hour Vital Signs Date Time Temp Pulse Resp B/P (MAP) Pulse Ox O2 Delivery O2 Flow Rate FiO2 09/27/17 19:07 98.0 76 16 161/79 100 Room Air 98.0 09/27/17 18:50 98.0 76 16 161/79 100 Room Air 98.0 09/27/17 18:11 98.3 65 14 117/72 100 Room Air 98.3 09/27/17 16:28 98.3 65 14 148/67 100 Room Air 98.3 09/27/17 16:26 98.9 09/27/17 13:47 98.9 65 14 136/60 99 Room Air 98.9 09/27/17 11:44 97.3 09/27/17 11:39 97.3 65 14 147/74 99 Room Air 97.3 09/27/17 10:39 97.3 73 20 148/81 99 Room Air 97.3 Laboratory Tests Test 09/27/17 10:58 09/27/17 13:32 09/27/17 14:46 White Blood Count 9.0 K/UL (4.8-10.8) Red Blood Count 3.00 M/UL (4.70-6.10) L Hemoglobin 9.1 G/DL (14.2-18.0) L Hematocrit 28.7 % (42.0-52.0) L Mean Corpuscular Volume 96 FL (80-99) Mean Corpuscular Hemoglobin 30.3 PG (27.0-31.0) Mean Corpuscular Hemoglobin Concent 31.7 G/DL (32.0-36.0) L Red Cell Distribution Width 16.1 % (11.6-14.8) H Platelet Count 262 K/UL (150-450) Mean Platelet Volume 6.4 FL (6.5-10.1) L Neutrophils (%) (Auto) 83.8 % (45.0-75.0) H Lymphocytes (%) (Auto) 9.2 % (20.0-45.0) L Monocytes (%) (Auto) 5.7 % (1.0-10.0) Eosinophils (%) (Auto) 1.0 % (0.0-3.0) Basophils (%) (Auto) 0.4 % (0.0-2.0) Sodium Level 135 MMOL/L (136-145) L Potassium Level 5.0 MMOL/L (3.5-5.1) Chloride Level 103 MMOL/L (98-107) Carbon Dioxide Level 21 MMOL/L (21-32) Anion Gap 11 mmol/L (5-15) Blood Urea Nitrogen 71 mg/dL (7-18) H Creatinine 5.7 MG/DL (0.55-1.30) H Estimat Glomerular Filtration Rate 10.1 mL/min (>60) Glucose Level 352 MG/DL (74-106) H Lactic Acid Level 3.40 mmol/L (0.66-2.22) H 1.50 mmol/L (0.66-2.22) Calcium Level 7.9 MG/DL (8.5-10.1) L Total Bilirubin 0.4 MG/DL (0.2-1.0) Aspartate Amino Transf (AST/SGOT) 11 U/L (15-37) L Alanine Aminotransferase (ALT/SGPT) 11 U/L (12-78) L Alkaline Phosphatase 85 U/L (46-116) Total Creatine Kinase 56 U/L (26-308) Creatine Kinase MB 0.7 NG/ML (0.0-3.6) Creatine Kinase MB Relative Index 1.2 Troponin I 0.001 ng/mL (0.000-0.056) Total Protein 6.4 G/DL (6.4-8.2) Albumin 2.3 G/DL (3.4-5.0) L Globulin 4.1 g/dL Albumin/Globulin Ratio 0.6 (1.0-2.7) L Urine Color Brown Urine Appearance Clear Urine pH 9 (4.5-8.0) Urine Specific [place] 1.015 (1.005-1.035) Urine Protein 2+ (NEGATIVE) H Urine Glucose (UA) 2+ (NEGATIVE) H Urine Ketones Negative (NEGATIVE) Urine Occult Blood 5+ (NEGATIVE) H Urine Nitrite Positive (NEGATIVE) H Urine Bilirubin Negative (NEGATIVE) Urine Urobilinogen Normal MG/DL (0.0-1.0) Urine Leukocyte Esterase 3+ (NEGATIVE) H Urine RBC 5-10 /HPF (0 - 0) H Urine WBC 2-4 /HPF (0 - 0) Urine Squamous Epithelial Cells None /LPF (NONE/OCC) Urine Bacteria Few /HPF (NONE) Height (Feet): 5 Height (Inches): 9.00 Weight (Pounds): 190 Medications Current Medications Medications (Trade) Dose Ordered Sig/Dunia Route PRN Reason Start Time Stop Time Status Last Admin Dose Admin Acetaminophen (Tylenol) 650 mg Q4H PRN ORAL T>100.5 09/27/17 19:15 10/27/17 19:14 Albuterol/ Ipratropium (Albuterol/ Ipratropium) 3 ml Q4H PRN HHN Shortness of Breath 09/27/17 19:15 10/02/17 19:14 Amlodipine Besylate (Norvasc) 5 mg DAILY ORAL 09/28/17 09:00 10/28/17 08:59 Atorvastatin Calcium (Lipitor) 10 mg BEDTIME ORAL 09/27/17 21:00 10/27/17 20:59 Azathioprine (Imuran) 50 mg DAILY ORAL 09/28/17 09:00 10/28/17 08:59 Aztreonam 0.5 gm/ Sodium Chloride 55 ml @ 110 mls/hr Q8HR IVPB 09/28/17 06:00 10/05/17 05:59 Aztreonam 1 gm/ Sodium Chloride 50 ml @ 100 mls/hr ONCE ONCE IVPB 09/27/17 21:00 09/27/17 21:29 Dextrose (Dextrose 50%) STAT PRN IV Hypoglycemia 09/27/17 19:15 10/27/17 19:14 Duloxetine HCl (Cymbalta) 30 mg DAILY ORAL 09/28/17 09:00 10/28/17 08:59 Heparin Sodium (Porcine) (Heparin 5000 units/ml) 5,000 units EVERY 12 HOURS SUBQ 09/27/17 21:00 10/27/17 20:59 Insulin Aspart (NovoLOG) BEFORE MEALS AND HS SUBQ 09/27/17 21:00 10/27/17 20:59 Metoprolol Succinate (Toprol XL) 50 mg Q12HR ORAL 09/27/17 21:00 10/27/17 20:59 Morphine Sulfate (Morphine Sulfate) 2 mg Q4H PRN IVP Moderate Pain (Pain Scale 4-6) 09/27/17 19:15 10/04/17 19:14 Nitroglycerin (Ntg) 0.4 mg Q5MIN X 3 DOSES PRN SL Prn Chest Pain 09/27/17 19:30 10/27/17 19:29 Ondansetron HCl (Zofran) 4 mg Q6H PRN IVP Nausea & Vomiting 09/27/17 19:15 10/27/17 19:14 Polyethylene Glycol (Miralax) 17 gm DAILYPRN PRN ORAL Constipation 09/27/17 19:15 10/27/17 19:14 Sevelamer Carbonate (Renvela) 800 mg THREE TIMES A DAY ORAL 09/28/17 09:00 10/28/17 08:59 Sodium Chloride 1,000 ml @ 100 mls/hr Q10H IVLG 09/28/17 19:30 10/28/17 19:29 Tamsulosin HCl (Flomax) 0.4 mg Q12HR ORAL 09/27/17 21:00 10/27/17 20:59 Temazepam (Restoril) 15 mg HSPRN PRN ORAL Insomnia 09/27/17 21:00 10/04/17 20:59 Vancomycin HCl (Vanco rx to dose) 1 ea DAILY PRN MISC . 09/27/17 19:45 10/27/17 19:44 Vancomycin HCl/ Dextrose 250 ml @ 125 mls/hr ONCE ONCE IVPB 09/27/17 22:00 09/27/17 23:59 Assessment/Plan Status: not improved Assessment/Plan 62 yo male with unclear likely injury to penis/scrotum. Significant swelling to penis and scrotum making visualization of glans impossible. Patient has a left pelvic kidney transplant. Apparently has been failing for a while now. patient by history is pleasantly demented. I surmise there was some self induced injury that may have caused urethral injury. Will not attempt bedside suprapubic tube due to presence of pelvic transplant kidney and likely diverticulum. Patient needs reliable drainage of bladder. 1. arrange for ultrasound guided suprpubic tube placement with interventional radiology 2. conservative mgmt of lower swelling Lit Mccain M.D. Sep 27, 2017 20:00
[2017-09-27 20:34] LABS: CREATINE KINASE 60 U/L (26-308); PHOSPHORUS 3.9 MG/DL (2.5-4.9)
[2017-09-27] MEDS: NovoLOG Insulin Flexpen SUBQ SCH (21:00)
[2017-09-27] MEDS ORDERED: Aztreonam Inj 1 GM in NS 50 ML IVPB ONE (21:00)
[2017-09-27] MEDS: Vancomycin 1.5 GM/D5W 250ML IVPB ONE (22:00)
[2017-09-27] MEDS: Heparin 5000 units/ml inj SUBQ SCH (23:20)
[2017-09-27] MEDS: Tamsulosin 0.4mg cap ORAL SCH (23:22)
[2017-09-27] MEDS: Metoprolol Succinate XL 50mg tab ORAL SCH (23:23)
[2017-09-28] VITALS (20 sets, daily range): BP systolic 121–155; BP diastolic 58–84
[2017-09-28] MEDS ORDERED: Vancomycin 1 GM in D5W 275 ML IV SCH (00:30)
[2017-09-28] MEDS: Aztreonam Inj 0.5 GM in NS 55 ML IVPB SCH ×2 (06:26→13:24)
[2017-09-28] MEDS: NovoLOG Insulin Flexpen SUBQ SCH ×4 (06:26→20:26)
[2017-09-28 08:36] LABS: HEMATOCRIT 23.4 % (42.0-52.0); HEMOGLOBIN 7.5 G/DL (14.2-18.0); MEAN CORPUSCULAR VOLUME 96 FL (80-99); PLATELET COUNT 239 K/UL (150-450); RED BLOOD COUNT 2.44 M/UL (4.70-6.10); RED CELL DISTRIBUTION WIDTH 16.4 % (11.6-14.8)
[2017-09-28] MEDS ORDERED: azaTHIOprine 50 MG TAB ORAL SCH (09:00)
[2017-09-28] MEDS: Heparin 5000 units/ml inj SUBQ SCH ×2 (09:00→20:16)
[2017-09-28] MEDS ORDERED: DULoxetine 30mg cap ORAL SCH (09:00)
[2017-09-28 09:05] LABS: ALANINE AMINOTRANSFERASE 7 U/L (12-78); ALBUMIN 2.1 G/DL (3.4-5.0); ALBUMIN/GLOBULIN RATIO 0.5 (1.0-2.7); ALKALINE PHOSPHATASE 76 U/L (46-116); ANION GAP 11 mmol/L (5-15); ASPARTATE AMINO TRANSFERASE 11 U/L (15-37); BILIRUBIN,TOTAL 0.3 MG/DL (0.2-1.0); BLOOD UREA NITROGEN 73 mg/dL (7-18); CALCIUM 7.9 MG/DL (8.5-10.1); CARBON DIOXIDE 21 MMOL/L (21-32); CHLORIDE 106 MMOL/L (98-107); CREATININE 5.1 MG/DL (0.55-1.30); POTASSIUM 5.1 MMOL/L (3.5-5.1); SODIUM 138 MMOL/L (136-145)
[2017-09-28] MEDS: Tamsulosin 0.4mg cap ORAL SCH (09:30)
[2017-09-28] MEDS: Metoprolol Succinate XL 50mg tab ORAL SCH ×2 (09:30→20:21)
[2017-09-28 11:02] LABS: INR 1.6 (0.9-1.1)
--- NOTE | 2017-09-28 12:12 | Consultation ---
History of Present Illness General Date patient seen: Sep 28, 2017 Chief Complaint: General Complaint Referring physician: Jamshid Reason for Consultation: retention Present Illness HPI 62-year-old male with hx failing renal transplant, depression, assisted resident presented to ER after increased hematuria. Patient is DO NOT RESUSCITATE. Apparently he had a history of fall causing hematoma and swelling to his penis, making urination and putting a Cline impossible. Allergies: Coded Allergies: CEFEPIME (Verified Allergy, Intermediate, Rash, 01/23/13) Medication History Scheduled Amlodipine Besylate (Norvasc), 5 MG ORAL DAILY, (Reported) Aspirin* (Aspirin*), 81 MG ORAL DAILY Atorvastatin Calcium* (Lipitor*), 10 MG ORAL BEDTIME Atorvastatin Calcium* (Lipitor*), 10 MG ORAL BEDTIME, (Reported) Azathioprine (Azathioprine), 50 MG ORAL DAILY Azathioprine* (Imuran*), 50 MG PO DAILY, (Reported) Cholecalciferol (Vitamin D3)* (Vitamin D*), 5,000 INTLU ORAL Mo@09 Cranberry Fruit Concentrate (Cranberry), 450 MG PO DAILY, (Reported) Daptomycin (Cubicin Rf), MG IV 48 hrs, (Reported) Daptomycin (Cubicin Rf), 500 MG IV 48 hrs, (Reported) Docusate Sodium* (Colace*), 100 MG ORAL TWICE A DAY Doxycycline Hyclate (Doxycycline Hyclate), 100 MG PO BID Duloxetine Hcl* (Cymbalta*), 30 MG ORAL DAILY, (Reported) Epoetin Jose (Epogen), 10,000 UNIT SUBQ THREE TIMES A WEEK, (Reported) Ertapenem Sodium* (INVanz*), 1 GM IVPB Q24H, (Reported) Ferrous Sulfate* (Ferrous Sulfate*), 325 MG ORAL DAILY, (Reported) Finasteride (Finasteride), 5 MG ORAL DAILY Insulin Aspart (Novolog Flexpen), 10 UNITS SUBQ NOVOTIAC Insulin Aspart (Novolog Flexpen), 0 UNITS SUBQ BEFORE MEALS AND HS Insulin Aspart (Novolog Flexpen), 5 SQ AC, (Reported) Insulin Detemir (Levemir Flexpen), 15 UNITS SUBQ BID Insulin Glargine (Lantus), 6 SUBQ BID, (Reported) Insulin Glargine (Lantus), 10 SUBQ DAILY, (Reported) Insulin Glargine (Lantus), 6 SUBQ BEDTIME, (Reported) Insulin Lispro (Humalog), 4 SUBQ AC, (Reported) Linezolid (Zyvox), 600 MG IVPB EVERY 12 HOURS, (Reported) Metoprolol Succinate* (Metoprolol Succinate*), 50 MG ORAL Q12HR, (Reported) Omeprazole (Omeprazole), 40 MG ORAL DAILY, (Reported) Pantoprazole* (Protonix*), 40 MG ORAL DAILY Polyethylene Glycol* (Miralax*), 17 GM ORAL BEDTIME Sevelamer Carbonate* (Renvela*), 800 MG ORAL THREE TIMES A DAY, (Reported) Sodium Citrate (Sod Citrate-Citric Acid Soln), 30 ML ORAL THREE TIMES A DAY Tamsulosin HCl (Flomax), 0.4 MG ORAL BID, (Reported) Tamsulosin Hcl (Tamsulosin Hcl*), 0.4 MG ORAL BEDTIME Vit B Complex & C No.13/Fa/D3 (Nephrocaps Qt Tablet), 1 EACH PO DAILY, (Reported ) Vitamin D (Vitamin D3), 5,000 UNITS ORAL DAILY, (Reported) Warfarin Sod* (Coumadin*), 4 MG ORAL DAILY, (Reported) Scheduled PRN Acetaminophen (Acetaminophen), 650 MG ORAL Q6H PRN for Prn Headache/Temp > 101, (Reported) Ipratropium/Albuterol Sulfate (DuoNeb 0.5-3(2.5)mg/3ml), 3 ML HHN Q4HRT PRN for Shortness of Breath Ondansetron (Zofran), 4 MG ORAL Q6H PRN for Nausea & Vomiting, (Reported) [Warfarin RX monitoring], 1 EA MISC DAILY PRN for Per rx protocol Miscellaneous Medications Citric Acid/Sodium Citrate (Cytra-2 Oral Solution), 30 ML PO, (Reported) [Novolog ss], (Reported) Patient History Healthcare decision maker Resuscitation status Do Not Resuscitate Advanced Directive on File Past Medical/Surgical History Past Medical/Surgical History: (1) Transplant recipient (2) HTN (hypertension) (3) CAD (coronary artery disease) (4) Psychiatric disturbance (5) Coronary heart disease (6) DM (diabetes mellitus) Review of Systems Eye: Reports: no symptoms Physical Exam General Appearance: WD/WN Lines, tubes and drains: peripheral, endotracheal tube HEENT: normocephalic, atraumatic, mucous membranes moist, PERRL Neck: non-tender, normal inspection Respiratory/Chest: chest wall non-tender, normal breath sounds Cardiovascular/Chest: normal peripheral pulses Abdomen: normal bowel sounds Genitourinary/Rectal: other - swelling Skin Exam: normal pigmentation 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 Last 24 Hour Vital Signs Date Time Temp Pulse Resp B/P (MAP) Pulse Ox O2 Delivery O2 Flow Rate FiO2 09/28/17 09:30 72 138/76 09/28/17 09:30 72 138/76 09/28/17 08:00 97.7 72 18 138/76 100 Room Air 97.7 09/28/17 04:00 72 09/28/17 04:00 97.7 80 19 146/80 97 Room Air 97.7 09/28/17 00:00 86 09/28/17 00:00 97.7 78 19 155/84 98 Room Air 97.7 09/27/17 23:23 76 161/79 09/27/17 20:00 74 09/27/17 20:00 98.1 74 19 162/82 99 Room Air 98.1 09/27/17 19:07 98.0 76 16 161/79 100 Room Air 98.0 09/27/17 18:50 98.0 76 16 161/79 100 Room Air 98.0 09/27/17 18:11 98.3 65 14 117/72 100 Room Air 98.3 09/27/17 16:28 98.3 65 14 148/67 100 Room Air 98.3 09/27/17 16:26 98.9 09/27/17 13:47 98.9 65 14 136/60 99 Room Air 98.9 Intake and Output 09/27/17 09/28/17 19:00 07:00 Intake Total 100 ml Output Total 600 ml Balance 100 ml -600 ml IV Total 100 ml Output Urine Total 600 ml Laboratory Tests Test 09/27/17 13:32 09/27/17 14:46 09/28/17 08:25 09/28/17 10:30 Lactic Acid Level 1.50 mmol/L (0.66-2.22) Urine Color Brown Urine Appearance Clear Urine pH 9 (4.5-8.0) Urine Specific [place] 1.015 (1.005-1.035) Urine Protein 2+ (NEGATIVE) H Urine Glucose (UA) 2+ (NEGATIVE) H Urine Ketones Negative (NEGATIVE) Urine Occult Blood 5+ (NEGATIVE) H Urine Nitrite Positive (NEGATIVE) H Urine Bilirubin Negative (NEGATIVE) Urine Urobilinogen Normal MG/DL (0.0-1.0) Urine Leukocyte Esterase 3+ (NEGATIVE) H Urine RBC 5-10 /HPF (0 - 0) H Urine WBC 2-4 /HPF (0 - 0) Urine Squamous Epithelial Cells None /LPF (NONE/OCC) Urine Bacteria Few /HPF (NONE) White Blood Count 9.0 K/UL (4.8-10.8) Red Blood Count 2.44 M/UL (4.70-6.10) L Hemoglobin 7.5 G/DL (14.2-18.0) L Hematocrit 23.4 % (42.0-52.0) L Mean Corpuscular Volume 96 FL (80-99) Mean Corpuscular Hemoglobin 30.6 PG (27.0-31.0) Mean Corpuscular Hemoglobin Concent 31.9 G/DL (32.0-36.0) L Red Cell Distribution Width 16.4 % (11.6-14.8) H Platelet Count 239 K/UL (150-450) Mean Platelet Volume 6.5 FL (6.5-10.1) Neutrophils (%) (Auto) % (45.0-75.0) Lymphocytes (%) (Auto) % (20.0-45.0) Monocytes (%) (Auto) % (1.0-10.0) Eosinophils (%) (Auto) % (0.0-3.0) Basophils (%) (Auto) % (0.0-2.0) Differential Total Cells Counted 100 Neutrophils % (Manual) 80 % (45-75) H Lymphocytes % (Manual) 8 % (20-45) L Monocytes % (Manual) 6 % (1-10) Eosinophils % (Manual) 5 % (0-3) H Basophils % (Manual) 1 % (0-2) Band Neutrophils 0 % (0-8) Platelet Estimate Adequate Platelet Morphology Normal Hypochromasia 1+ Anisocytosis 1+ Sodium Level 138 MMOL/L (136-145) Potassium Level 5.1 MMOL/L (3.5-5.1) Chloride Level 106 MMOL/L (98-107) Carbon Dioxide Level 21 MMOL/L (21-32) Anion Gap 11 mmol/L (5-15) Blood Urea Nitrogen 73 mg/dL (7-18) H Creatinine 5.1 MG/DL (0.55-1.30) H Estimat Glomerular Filtration Rate 11.5 mL/min (>60) Glucose Level 191 MG/DL (74-106) #H Calcium Level 7.9 MG/DL (8.5-10.1) L Total Bilirubin 0.3 MG/DL (0.2-1.0) Aspartate Amino Transf (AST/SGOT) 11 U/L (15-37) L Alanine Aminotransferase (ALT/SGPT) 7 U/L (12-78) L Alkaline Phosphatase 76 U/L (46-116) Total Protein 6.1 G/DL (6.4-8.2) L Albumin 2.1 G/DL (3.4-5.0) L Globulin 4.0 g/dL Albumin/Globulin Ratio 0.5 (1.0-2.7) L Prothrombin Time 16.7 SEC (9.30-11.50) H Prothromb Time International Ratio 1.6 (0.9-1.1) H Activated Partial Thromboplast Time 44 SEC (23-33) H Height (Feet): 5 Height (Inches): 9.00 Weight (Pounds): 190 Medications Current Medications Medications (Trade) Dose Ordered Sig/Dunia Route PRN Reason Start Time Stop Time Status Last Admin Dose Admin Acetaminophen (Tylenol) 650 mg Q4H PRN ORAL T>100.5 09/27/17 19:15 10/27/17 19:14 Albuterol/ Ipratropium (Albuterol/ Ipratropium) 3 ml Q4H PRN HHN Shortness of Breath 09/27/17 19:15 10/02/17 19:14 Amlodipine Besylate (Norvasc) 5 mg DAILY ORAL 09/28/17 09:00 10/28/17 08:59 09/28/17 09:30 Atorvastatin Calcium (Lipitor) 10 mg BEDTIME ORAL 09/27/17 21:00 10/27/17 20:59 09/27/17 23:22 Azathioprine (Imuran) 50 mg DAILY ORAL 09/28/17 09:00 10/28/17 08:59 09/28/17 10:10 Aztreonam 0.5 gm/ Sodium Chloride 55 ml @ 110 mls/hr Q8HR IVPB 09/28/17 06:00 10/05/17 05:59 09/28/17 06:26 Dextrose (Dextrose 50%) STAT PRN IV Hypoglycemia 09/27/17 19:15 10/27/17 19:14 Duloxetine HCl (Cymbalta) 30 mg DAILY ORAL 09/28/17 09:00 10/28/17 08:59 09/28/17 09:30 Heparin Sodium (Porcine) (Heparin 5000 units/ml) 5,000 units EVERY 12 HOURS SUBQ 09/27/17 21:00 10/27/17 20:59 09/27/17 23:20 Insulin Aspart (NovoLOG) BEFORE MEALS AND HS SUBQ 09/27/17 21:00 10/27/17 20:59 09/28/17 11:28 Metoprolol Succinate (Toprol XL) 50 mg Q12HR ORAL 09/27/17 21:00 10/27/17 20:59 09/28/17 09:30 Morphine Sulfate (Morphine Sulfate) 2 mg Q4H PRN IVP Moderate Pain (Pain Scale 4-6) 09/27/17 19:15 10/04/17 19:14 Nitroglycerin (Ntg) 0.4 mg Q5MIN X 3 DOSES PRN SL Prn Chest Pain 09/27/17 19:30 10/27/17 19:29 Ondansetron HCl (Zofran) 4 mg Q6H PRN IVP Nausea & Vomiting 09/27/17 19:15 10/27/17 19:14 Polyethylene Glycol (Miralax) 17 gm DAILYPRN PRN ORAL Constipation 09/27/17 19:15 10/27/17 19:14 Sevelamer Carbonate (Renvela) 800 mg THREE TIMES A DAY ORAL 09/28/17 09:00 10/28/17 08:59 09/28/17 09:29 Sodium Chloride 1,000 ml @ 100 mls/hr Q10H IVLG 09/28/17 19:30 10/28/17 19:29 Tamsulosin HCl (Flomax) 0.4 mg Q12HR ORAL 09/27/17 21:00 10/27/17 20:59 09/28/17 09:30 Temazepam (Restoril) 15 mg HSPRN PRN ORAL Insomnia 09/27/17 21:00 10/04/17 20:59 Vancomycin HCl (Vanco rx to dose) 1 ea DAILY PRN MISC . 09/27/17 19:45 10/27/17 19:44 Assessment/Plan Problem List: (1) Hematuria ICD Codes: R31.9 - Hematuria, unspecified SNOMED: 05973900 (2) HTN (hypertension) ICD Codes: I10 - HTN (hypertension) SNOMED: 58763759 (3) CAD (coronary artery disease) ICD Codes: I25.10 - CAD (coronary artery disease) SNOMED: 182806199 (4) Pulmonary HTN ICD Codes: I27.0 - Pulmonary HTN SNOMED: 97551425 (5) Psychiatric disturbance ICD Codes: F99 - Psychiatric disturbance SNOMED: 79448903 (6) Anemia ICD Codes: D64.9 - Anemia SNOMED: 912335281 (7) Transplant recipient ICD Codes: Z94.89 - Other transplanted organ and tissue status SNOMED: 185048313 (8) Anemia in chronic kidney disease ICD Codes: D63.1 - Anemia in chronic kidney disease; N03.9 - Anemia in chronic kidney disease SNOMED: 497854743 Assessment/Plan urology recommended suprapubic catheter Nephrology consult psych to see symptomatic treatment resume assisted meds. f/u electrolytes sliding scale diabetic diet. Esdras Delgado MD Sep 28, 2017 12:12
[2017-09-28 12:53] LABS: APPEARANCE,URINE VERY CLOUDY; BILIRUBIN, URINE NEGATIVE (NEGATIVE); GLUCOSE, URINE (UA) NEGATIVE (NEGATIVE); KETONES,URINE NEGATIVE (NEGATIVE); LEUKOCYTE ESTERASE ,URINE 3+ (NEGATIVE); NITRITE,URINE NEGATIVE (NEGATIVE); PH,URINE 8 (4.5-8.0); PROTEIN,URINE 2+ (NEGATIVE); UROBILINOGEN,URINE NORMAL MG/DL (0.0-1.0)
[2017-09-28 13:07] LABS: COLOR,URINE RED
[2017-09-28] MEDS ORDERED: Phytonadione 10 MG in NS 55 ML IVPB ONE (14:00)
[2017-09-28] MEDS ORDERED: Midazolam 2mg/2ml Inj IVP SCH (14:15)
[2017-09-28] MEDS ORDERED: fentaNYL 100 mcg/2 mL IV ONE ×2 (14:26→19:00)
[2017-09-28] MEDS ORDERED: fentaNYL 100 mcg/2 mL IV SCH (14:45)
--- NOTE | 2017-09-28 14:46 | Pre-Procedure Note/Attestation ---
Pre-Procedure Note/Attestation Complete Prior to Procedure Planned Procedure: not applicable Procedure Narrative: US and fluoro guided suprapubic cystostomy Indications for Procedure Pre-Operative Diagnosis: urethral obstruction Attestation I attest that I discussed the nature of the procedure; its benefits; risks and complications; and alternatives (and the risks and benefits of such alternatives ), prior to the procedure, with the patient (or the patient's legal customer relations representative). I attest that, if there was a reasonable possibility of needing a blood transfusion, the patient (or the patient's legal customer relations representative) was given the [place] Department [employer] standardized written summary, pursuant to the [place] Blood Safety Act ([place] Health and Safety Code # 1645, as amended). I attest that I re-evaluated the patient just prior to the surgery and that there has been no change in the patient's H&P, except as documented below: AWAIS SIMMS M.D. Sep 28, 2017 14:46
--- NOTE | 2017-09-28 15:07 | Moderate Sedation - Procedural ---
Moderate Sedation HPI Home Medication Active Scripts Tamsulosin Hcl (TAMSULOSIN HCL*) 0.4 Mg Cap.er.24h, 0.4 MG ORAL BEDTIME for 30 Days, CAP Prov:DEE MAHER 06/04/17 Finasteride (FINASTERIDE) 5 Mg Tablet, 5 MG ORAL DAILY for 30 Days, TAB Prov:DEE MAHER 06/04/17 Insulin Aspart (Novolog Flexpen) 100 Units/Ml Pen, 0 UNITS SUBQ BEFORE MEALS AND HS, #1 EA Prov:Lyn Diaz TEXTILE BAG SEWER 09/02/15 Insulin Aspart (Novolog Flexpen) 100 Units/Ml Pen, 10 UNITS SUBQ NOVOTIAC, #1 EA Prov:Lyn Diaz TEXTILE BAG SEWER 09/02/15 Insulin Detemir (LEVEMIR FLEXPEN) 100 Unit/1 Ml Insuln.pen, 15 UNITS SUBQ BID, # 1 EA Prov:Lyn Diaz TEXTILE BAG SEWER 09/02/15 Doxycycline Hyclate (DOXYCYCLINE HYCLATE) 100 Mg Tablet, 100 MG PO BID, #20 TAB Prov:Christopher Rosado MD 04/15/15 [Warfarin RX monitoring] 1 EA MISC No Conflict Check, 1 EA MISC DAILY Y for Per rx protocol Prov:ARTSRUNYAN,MILTON N.P. 03/04/15 Polyethylene Glycol* (MIRALAX*) 17 Gm Pack, 17 GM ORAL BEDTIME for 30 Days, PACK Prov:ARTSRUNYAN,MILTON N.P. 03/04/15 Pantoprazole* (PROTONIX*) 40 Mg Tabec, 40 MG ORAL DAILY for 30 Days, TAB Prov:ARTSRUNYAN,MILTON N.P. 03/04/15 Ipratropium/Albuterol Sulfate (DuoNeb 0.5-3(2.5)mg/3ml) 3 Ml Ampul.neb, 3 ML HHN Q4HRT Y for Shortness of Breath for 30 Days, EA Prov:ARTSRUNYAN,MILTON N.P. 03/04/15 Docusate Sodium* (COLACE*) 100 Mg Cap, 100 MG ORAL TWICE A DAY for 30 Days, CAP Prov:ARTSRUNYAN,MILTON N.P. 03/04/15 Cholecalciferol (Vitamin D3)* (VITAMIN D*) 1,000 Intlu Tab, 5000 INTLU ORAL Mo@ 09 for 30 Days, TAB Prov:ARTSRUNYAN,MILTON N.P. 03/04/15 Azathioprine (Azathioprine) 50 Mg Tab, 50 MG ORAL DAILY for 30 Days, TAB Prov:ARTSRUNYAN,MILTON N.P. 03/04/15 Atorvastatin Calcium* (LIPITOR*) 10 Mg Tab, 10 MG ORAL BEDTIME for 30 Days, TAB Prov:ARTSRUNYAN,MILTON N.P. 03/04/15 Aspirin* (ASPIRIN*) 81 Mg Chew, 81 MG ORAL DAILY for 30 Days, TAB Prov:ARTSRUNYAN,MILTON N.P. 03/04/15 Sodium Citrate (Sod Citrate-Citric Acid Soln) 30 Ml Udc, 30 ML ORAL THREE TIMES A DAY, #90 EA Prov:ANDREW ANDRADE NP 02/14/14 Reported Medications Daptomycin (Cubicin Rf) 500 Mg Vial, 500 MG IV 48 hrs for 22 Days, VIAL 08/19/17 Daptomycin (Cubicin Rf) 500 Mg Vial, MG IV 48 hrs, VIAL 08/19/17 Linezolid (Zyvox) 600 Mg/300 Ml Iv.soln, 600 MG IVPB EVERY 12 HOURS, MG 06/07/17 Ertapenem Sodium* (INVanz*) 1 Gm Vial.port, 1 GM IVPB Q24H, VIAL 06/07/17 Insulin Glargine (LANTUS) 100 Unit/1 Ml Insuln.pen, 6 SUBQ BEDTIME, #1 EA 0 Refills 05/31/17 Insulin Glargine (LANTUS) 100 Unit/1 Ml Insuln.pen, 10 SUBQ DAILY, #1 EA 0 Refills 05/31/17 [Novolog ss] No Conflict Check 05/31/17 Insulin Aspart (Novolog Flexpen) 100 Unit/1 Ml Insuln.pen, 5 SQ AC 05/31/17 Cranberry Fruit Concentrate (CRANBERRY) 450 Mg Capsule, 450 MG PO DAILY, CAP 05/31/17 Omeprazole (OMEPRAZOLE) 40 Mg Capsule.dr, 40 MG ORAL DAILY, CAP 05/31/17 Ferrous Sulfate* (FERROUS SULFATE*) 325 Mg Tablet, 325 MG ORAL DAILY, #30 TAB 0 Refills 07/15/16 Vitamin D (Vitamin D3) 400 Unit Tablet, 5000 UNITS ORAL DAILY, TAB 07/15/16 Atorvastatin Calcium* (LIPITOR*) 10 Mg Tablet, 10 MG ORAL BEDTIME, TAB 07/15/16 Azathioprine* (IMURAN*) 50 Mg Tablet, 50 MG PO DAILY, TAB 07/15/16 Vit B Complex & C No.13/Fa/D3 (NEPHROCAPS QT TABLET) 1 Each Tab.rapdis, 1 EACH PO DAILY, TAB 08/30/15 Insulin Glargine (LANTUS) 100 Unit/1 Ml Insuln.pen, 6 SUBQ BID, #1 EA 0 Refills 08/30/15 Insulin Lispro (HUMALOG) 100 Unit/1 Ml Cartridge, 4 SUBQ AC, #1 UNITS 0 Refills 08/30/15 Citric Acid/Sodium Citrate (CYTRA-2 ORAL SOLUTION) 473 Ml Solution, 30 ML PO 08/30/15 Warfarin Sod* (COUMADIN*) 4 Mg Tablet, 4 MG ORAL DAILY, TAB 04/11/15 Sevelamer Carbonate* (RENVELA*) 0.8 Gm Powd.pack, 800 MG ORAL THREE TIMES A DAY , PACK 04/11/15 Acetaminophen (Acetaminophen) 650 Mg/20.3 Ml Soln, 650 MG ORAL Q6H Y for Prn Headache/Temp > 101, ML 0 Refills 12/28/13 Duloxetine Hcl* (CYMBALTA*) 30 Mg Capsule.dr, 30 MG ORAL DAILY, CAP 12/28/13 Amlodipine Besylate (Norvasc) 5 Mg Tab, 5 MG ORAL DAILY, TAB 12/06/13 Ondansetron (Zofran) 4 Mg Tab, 4 MG ORAL Q6H Y for Nausea & Vomiting, TAB 12/06/13 Metoprolol Succinate* (METOPROLOL SUCCINATE*) 50 Mg Tab.er.24h, 50 MG ORAL Q12HR , TAB 12/06/13 Epoetin Jose (Epogen) 10 000/1 Ml Vial, 14061 UNIT SUBQ THREE TIMES A WEEK, VIAL 12/06/13 Tamsulosin HCl (Flomax) 0.4 Mg Cap, 0.4 MG ORAL BID, TAB 02/04/13 Patient History Allergies: Coded Allergies: CEFEPIME (Verified Allergy, Intermediate, Rash, 01/23/13) PAST MEDICAL HISTORY: Past Surgeries: Social History: Pre-Procedural Mod Sedation Pre-Assessment Time: 15:00 Pre-Sedation Assessment: Elective, Eval. Immed. Prior to Sed, Reviewed H&P - Chart reviewed Airway Assessment (Malampati): III Evaluation Procedures/Plans: Radiology - cystostomy Plan for Moderate Sedation: Midazolam, Fentanyl ASA Score: III Informed Consent The nature of the procedure/sedation; its benefits; risks and complications; and alternatives (and the risks and benefits of such alternatives) were discussed with the patient (or their legal union representative), prior to the procedure. All questions were answered to the patient's (or their legal union representative's) satisfaction and the patient (or their legal union representative) gave informed consent to the procedure. I attest that I re-evaluated the patient just prior to the surgery and that there has been no change in the patient's H&P, except as documented below: Post Procedure Assessment Post Procedure TIme: 15:30 Communication: No Apparent Limitation Mental Status: Awake Respiration: Unlabored Skin Condition: WNL Adomen: WNL Nausea: NO Vomiting: NO AWAIS SIMMS M.D. Sep 28, 2017 15:06
[2017-09-28] MEDS ORDERED: Heparin 2000 units/Ns 1000ml 1,000 ML ONE (15:16)
--- NOTE | 2017-09-28 15:22 | History & Physical ---
History and Physical History & Physicial Dictated for Int Med-Dr Rosado no [id number]. DEE MAHER Sep 28, 2017 15:22
--- NOTE | 2017-09-28 15:45 | Consultation ---
Consult Note Consult Note asked to eval for renal failure- Known to me from his previous admissions Patient is a 62-year-old male who presented after increased hematuria. Patient prior history of renal transplant. Patient had the prior history of confusion. The patient previously stated that he did not want dialysis. Patient was noted to be DO NOT RESUSCITATE.The patient is followed by Dr. Rosado Allergies: Coded Allergies: CEFEPIME (Verified Allergy, Intermediate, Rash, 01/23/13) Hx Hypertension: Yes Hx Asthma: Yes Hx Diabetes: Yes Hx Cerebrovascular Accident: Yes Hx Encephalitis: Yes - 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 ATTEMPT Hx Dizziness: Yes examined data reviewed Assessment/Plan (1) CKD (chronic kidney disease), stage III, superimposed acute- Cr unchanged since last admit (2) Dehydration- Partly due to hyperglycemia (3) Hyperglycemia due to type 2 diabetes mellitus (4) BPH (benign prostatic hypertrophy) (5) Nephropathy, diabetic (6) History of simultaneous kidney and pancreas transplant (7) UTI (urinary tract infection) (8) Anemia of CKD Has suprapubic cath avoid nephrotoxics BP and BS control- Flomax PO- monitor renal parameters Anemia [place] EPO SQ Markedly distended urinary bladder, Left iliac fossa transplant kidney hydronephrosis, BERT ALONSO Sep 28, 2017 15:45
--- NOTE | 2017-09-28 15:49 | Brief Operative Note ---
Immediate Post Operative Note Operative Note Pre-op Diagnosis: urethral obstruction Procedure: Suprapubic cystostomy Post-op Diagnosis: same as pre-op Findings: consistent w/pre-op dx studies Surgeon: Frederick SIMMS Specimen: none Complications: none Condition: unstable Fluids: none Drains: other - 14 F pigtail placed in urinary bladder Implant(s) used?: No AWAIS SIMMS M.D. Sep 28, 2017 15:49
--- NOTE | 2017-09-28 16:13 | Consultation ---
History of Present Illness General Date patient seen: Sep 28, 2017 Time patient seen: 15:49 Chief Complaint: General Complaint Referring physician: Jamshid Reason for Consultation: retention Present Illness HPI 62 y/o M with hx of Dm2, MDD with suicidal attempts in the past, CAD/UT, BPH, anemia, asthma, colonic polyps, ESRD s/p renal and pancreas tx ~10 yrs ago, ConS bacteremia/line infection presents to ED on 09/27 with hematuria, penile swelling and difficulty urinating OF note, patient recently admitted here late July-early August 2017 due to psychiatric issues. He was found to have persistent ConS bacteremia which thought 2ry to PICC line infection which was remove but had persistent bacteremic despite removal. Underwent AMY with no obvious vegetation. Treated with 4 weeks course of Daptomycin from neg Bcx. Allergies: Coded Allergies: CEFEPIME (Verified Allergy, Intermediate, Rash, 01/23/13) Medication History Scheduled Amlodipine Besylate (Norvasc), 5 MG ORAL DAILY, (Reported) Aspirin* (Aspirin*), 81 MG ORAL DAILY Atorvastatin Calcium* (Lipitor*), 10 MG ORAL BEDTIME Atorvastatin Calcium* (Lipitor*), 10 MG ORAL BEDTIME, (Reported) Azathioprine (Azathioprine), 50 MG ORAL DAILY Azathioprine* (Imuran*), 50 MG PO DAILY, (Reported) Cholecalciferol (Vitamin D3)* (Vitamin D*), 5,000 INTLU ORAL Mo@09 Cranberry Fruit Concentrate (Cranberry), 450 MG PO DAILY, (Reported) Daptomycin (Cubicin Rf), MG IV 48 hrs, (Reported) Daptomycin (Cubicin Rf), 500 MG IV 48 hrs, (Reported) Docusate Sodium* (Colace*), 100 MG ORAL TWICE A DAY Doxycycline Hyclate (Doxycycline Hyclate), 100 MG PO BID Duloxetine Hcl* (Cymbalta*), 30 MG ORAL DAILY, (Reported) Epoetin Jose (Epogen), 10,000 UNIT SUBQ THREE TIMES A WEEK, (Reported) Ertapenem Sodium* (INVanz*), 1 GM IVPB Q24H, (Reported) Ferrous Sulfate* (Ferrous Sulfate*), 325 MG ORAL DAILY, (Reported) Finasteride (Finasteride), 5 MG ORAL DAILY Insulin Aspart (Novolog Flexpen), 10 UNITS SUBQ NOVOTIAC Insulin Aspart (Novolog Flexpen), 0 UNITS SUBQ BEFORE MEALS AND HS Insulin Aspart (Novolog Flexpen), 5 SQ AC, (Reported) Insulin Detemir (Levemir Flexpen), 15 UNITS SUBQ BID Insulin Glargine (Lantus), 6 SUBQ BID, (Reported) Insulin Glargine (Lantus), 10 SUBQ DAILY, (Reported) Insulin Glargine (Lantus), 6 SUBQ BEDTIME, (Reported) Insulin Lispro (Humalog), 4 SUBQ AC, (Reported) Linezolid (Zyvox), 600 MG IVPB EVERY 12 HOURS, (Reported) Metoprolol Succinate* (Metoprolol Succinate*), 50 MG ORAL Q12HR, (Reported) Omeprazole (Omeprazole), 40 MG ORAL DAILY, (Reported) Pantoprazole* (Protonix*), 40 MG ORAL DAILY Polyethylene Glycol* (Miralax*), 17 GM ORAL BEDTIME Sevelamer Carbonate* (Renvela*), 800 MG ORAL THREE TIMES A DAY, (Reported) Sodium Citrate (Sod Citrate-Citric Acid Soln), 30 ML ORAL THREE TIMES A DAY Tamsulosin HCl (Flomax), 0.4 MG ORAL BID, (Reported) Tamsulosin Hcl (Tamsulosin Hcl*), 0.4 MG ORAL BEDTIME Vit B Complex & C No.13/Fa/D3 (Nephrocaps Qt Tablet), 1 EACH PO DAILY, (Reported ) Vitamin D (Vitamin D3), 5,000 UNITS ORAL DAILY, (Reported) Warfarin Sod* (Coumadin*), 4 MG ORAL DAILY, (Reported) Scheduled PRN Acetaminophen (Acetaminophen), 650 MG ORAL Q6H PRN for Prn Headache/Temp > 101, (Reported) Ipratropium/Albuterol Sulfate (DuoNeb 0.5-3(2.5)mg/3ml), 3 ML HHN Q4HRT PRN for Shortness of Breath Ondansetron (Zofran), 4 MG ORAL Q6H PRN for Nausea & Vomiting, (Reported) [Warfarin RX monitoring], 1 EA MISC DAILY PRN for Per rx protocol Miscellaneous Medications Citric Acid/Sodium Citrate (Cytra-2 Oral Solution), 30 ML PO, (Reported) [Novolog ss], (Reported) Patient History Healthcare decision maker Resuscitation status Do Not Resuscitate Advanced Directive on File Patient History Narrative Pmhx: as above Shx: reviewed Fhx: non contributory Review of Systems All Other Systems: negative except mentioned in HPI Physical Exam Physical Exam Narrative General Appearance: WD/WN Lines, tubes and drains: peripheral, endotracheal tube HEENT: normocephalic, atraumatic, mucous membranes moist, PERRL Neck: non-tender, normal inspection Respiratory/Chest: chest wall non-tender, normal breath sounds Cardiovascular/Chest: normal peripheral pulses Abdomen: normal bowel sounds Genitourinary/Rectal: genital area (penis,s crotum) -+ swelling, TTP, warmth; suprabpubic cath in place Skin Exam: normal pigmentation Neurologic: ip attorney II-XII grossly normal Last 24 Hour Vital Signs Date Time Temp Pulse Resp B/P (MAP) Pulse Ox O2 Delivery O2 Flow Rate FiO2 09/28/17 15:20 8 18 141/73 100 Nasal Cannula 3.0 09/28/17 15:15 82 18 143/72 100 Nasal Cannula 3.0 09/28/17 15:10 79 18 142/71 100 Nasal Cannula 3.0 09/28/17 15:00 79 12 142/70 100 Nasal Cannula 3.0 09/28/17 14:50 80 18 140/81 100 Nasal Cannula 3.0 09/28/17 14:45 82 18 140/81 100 Room Air 09/28/17 12:00 73 09/28/17 09:30 72 138/76 09/28/17 09:30 72 138/76 09/28/17 08:00 73 09/28/17 08:00 97.7 72 18 138/76 100 Room Air 97.7 09/28/17 04:00 72 09/28/17 04:00 97.7 80 19 146/80 97 Room Air 97.7 09/28/17 00:00 86 09/28/17 00:00 97.7 78 19 155/84 98 Room Air 97.7 09/27/17 23:23 76 161/79 09/27/17 20:00 74 09/27/17 20:00 98.1 74 19 162/82 99 Room Air 98.1 09/27/17 19:07 98.0 76 16 161/79 100 Room Air 98.0 09/27/17 18:50 98.0 76 16 161/79 100 Room Air 98.0 09/27/17 18:11 98.3 65 14 117/72 100 Room Air 98.3 09/27/17 16:28 98.3 65 14 148/67 100 Room Air 98.3 09/27/17 16:26 98.9 Intake and Output 09/27/17 09/28/17 19:00 07:00 Intake Total 100 ml Output Total 600 ml Balance 100 ml -600 ml IV Total 100 ml Output Urine Total 600 ml Laboratory Tests Test 09/28/17 08:25 09/28/17 10:30 09/28/17 12:20 White Blood Count 9.0 K/UL (4.8-10.8) Red Blood Count 2.44 M/UL (4.70-6.10) L Hemoglobin 7.5 G/DL (14.2-18.0) L Hematocrit 23.4 % (42.0-52.0) L Mean Corpuscular Volume 96 FL (80-99) Mean Corpuscular Hemoglobin 30.6 PG (27.0-31.0) Mean Corpuscular Hemoglobin Concent 31.9 G/DL (32.0-36.0) L Red Cell Distribution Width 16.4 % (11.6-14.8) H Platelet Count 239 K/UL (150-450) Mean Platelet Volume 6.5 FL (6.5-10.1) Neutrophils (%) (Auto) % (45.0-75.0) Lymphocytes (%) (Auto) % (20.0-45.0) Monocytes (%) (Auto) % (1.0-10.0) Eosinophils (%) (Auto) % (0.0-3.0) Basophils (%) (Auto) % (0.0-2.0) Differential Total Cells Counted 100 Neutrophils % (Manual) 80 % (45-75) H Lymphocytes % (Manual) 8 % (20-45) L Monocytes % (Manual) 6 % (1-10) Eosinophils % (Manual) 5 % (0-3) H Basophils % (Manual) 1 % (0-2) Band Neutrophils 0 % (0-8) Platelet Estimate Adequate Platelet Morphology Normal Hypochromasia 1+ Anisocytosis 1+ Sodium Level 138 MMOL/L (136-145) Potassium Level 5.1 MMOL/L (3.5-5.1) Chloride Level 106 MMOL/L (98-107) Carbon Dioxide Level 21 MMOL/L (21-32) Anion Gap 11 mmol/L (5-15) Blood Urea Nitrogen 73 mg/dL (7-18) H Creatinine 5.1 MG/DL (0.55-1.30) H Estimat Glomerular Filtration Rate 11.5 mL/min (>60) Glucose Level 191 MG/DL (74-106) #H Calcium Level 7.9 MG/DL (8.5-10.1) L Total Bilirubin 0.3 MG/DL (0.2-1.0) Aspartate Amino Transf (AST/SGOT) 11 U/L (15-37) L Alanine Aminotransferase (ALT/SGPT) 7 U/L (12-78) L Alkaline Phosphatase 76 U/L (46-116) Total Protein 6.1 G/DL (6.4-8.2) L Albumin 2.1 G/DL (3.4-5.0) L Globulin 4.0 g/dL Albumin/Globulin Ratio 0.5 (1.0-2.7) L Prothrombin Time 16.7 SEC (9.30-11.50) H Prothromb Time International Ratio 1.6 (0.9-1.1) H Activated Partial Thromboplast Time 44 SEC (23-33) H Urine Color Red Urine Appearance Very cloudy Urine pH 8 (4.5-8.0) Urine Specific [place] 1.010 (1.005-1.035) Urine Protein 2+ (NEGATIVE) H Urine Glucose (UA) Negative (NEGATIVE) Urine Ketones Negative (NEGATIVE) Urine Occult Blood 5+ (NEGATIVE) H Urine Nitrite Negative (NEGATIVE) Urine Bilirubin Negative (NEGATIVE) Urine Urobilinogen Normal MG/DL (0.0-1.0) Urine Leukocyte Esterase 3+ (NEGATIVE) H Urine RBC Tntc /HPF (0 - 0) H Urine WBC 5-10 /HPF (0 - 0) H Urine Squamous Epithelial Cells Occasional /LPF Urine Bacteria Occasional /HPF (NONE) Urine Eosinophils Rare Urine Osmolality 335 mOsm/kg (429-449) L Urine Random Sodium 87 mmol/L (20-110) Urine Random Chloride 67 mmol/L (55-125) Urine Potassium Timed 15 mmol/L (12-62) Height (Feet): 5 Height (Inches): 9.00 Weight (Pounds): 190 Medications Current Medications Medications (Trade) Dose Ordered Sig/Dunia Route PRN Reason Start Time Stop Time Status Last Admin Dose Admin Acetaminophen (Tylenol) 650 mg Q4H PRN ORAL T>100.5 09/27/17 19:15 10/27/17 19:14 Albuterol/ Ipratropium (Albuterol/ Ipratropium) 3 ml Q4H PRN HHN Shortness of Breath 09/27/17 19:15 10/02/17 19:14 Amlodipine Besylate (Norvasc) 5 mg DAILY ORAL 09/28/17 09:00 10/28/17 08:59 09/28/17 09:30 Atorvastatin Calcium (Lipitor) 10 mg BEDTIME ORAL 09/27/17 21:00 10/27/17 20:59 09/27/17 23:22 Azathioprine (Imuran) 50 mg DAILY ORAL 09/28/17 09:00 10/28/17 08:59 09/28/17 10:10 Aztreonam 0.5 gm/ Sodium Chloride 55 ml @ 110 mls/hr Q8HR IVPB 09/28/17 06:00 10/05/17 05:59 09/28/17 13:24 Dextrose (Dextrose 50%) STAT PRN IV Hypoglycemia 09/27/17 19:15 10/27/17 19:14 Duloxetine HCl (Cymbalta) 30 mg DAILY ORAL 09/28/17 09:00 10/28/17 08:59 09/28/17 09:30 Fentanyl Citrate (Sublimaze 100 mcg/2 mL) 100 mcg ONCE IV 09/28/17 14:45 09/28/17 23:59 Fentanyl Citrate 1000 mcg/Sodium Chloride 100 ml @ 0 mls/hr ONCE ONCE IV 09/28/17 14:15 09/28/17 14:16 UNV Heparin Sodium (Porcine) (Heparin 5000 units/ml) 5,000 units EVERY 12 HOURS SUBQ 09/27/17 21:00 10/27/17 20:59 09/27/17 23:20 Insulin Aspart (NovoLOG) BEFORE MEALS AND HS SUBQ 09/27/17 21:00 10/27/17 20:59 09/28/17 11:28 Lidocaine HCl (Xylocaine 1% 30ml) 30 ml ONCE ONCE INJ 09/28/17 14:45 09/28/17 14:46 UNV Metoprolol Succinate (Toprol XL) 50 mg Q12HR ORAL 09/27/17 21:00 10/27/17 20:59 09/28/17 09:30 Midazolam HCl (Versed 2mg/2ml vial) 2 mg ONCE IVP 09/28/17 14:15 09/28/17 23:59 Morphine Sulfate (Morphine Sulfate) 2 mg Q4H PRN IVP Moderate Pain (Pain Scale 4-6) 09/27/17 19:15 10/04/17 19:14 Nitroglycerin (Ntg) 0.4 mg Q5MIN X 3 DOSES PRN SL Prn Chest Pain 09/27/17 19:30 10/27/17 19:29 Ondansetron HCl (Zofran) 4 mg Q6H PRN IVP Nausea & Vomiting 09/27/17 19:15 10/27/17 19:14 Polyethylene Glycol (Miralax) 17 gm DAILYPRN PRN ORAL Constipation 09/27/17 19:15 10/27/17 19:14 Sevelamer Carbonate (Renvela) 800 mg THREE TIMES A DAY ORAL 09/28/17 09:00 10/28/17 08:59 09/28/17 13:24 Sodium Chloride 1,000 ml @ 100 mls/hr Q10H IVLG 09/28/17 19:30 10/28/17 19:29 Tamsulosin HCl (Flomax) 0.4 mg Q12HR ORAL 09/27/17 21:00 10/27/17 20:59 09/28/17 09:30 Temazepam (Restoril) 15 mg HSPRN PRN ORAL Insomnia 09/27/17 21:00 10/04/17 20:59 Vancomycin HCl (Vanco rx to dose) 1 ea DAILY PRN MISC . 09/27/17 19:45 10/27/17 19:44 Assessment/Plan Assessment/Plan -Abx: IV Vancomcyin 09/27- Aztreonam 09/27- Ancef x1 09/28 Levaquin 09/27-09/28 Assessment: Hematuria Penile swelling w/ penile extensive hemorrhage and surrounding cellulitis -s/p suprapubic cystostomy 09/28 -CT abd/p: Evidence of extensive hemorrhage around the penile shaft, extending into the adjacent subcutaneous fat. Marked edema and/or ecchymosis of the scrotal wall also demonstrated. There is also a small right hydrocele. Etiology of the hemorrhage uncertain, urethral injury a possibility. Per discussion with referring physician, there is evidence of cellulitis as well as urinary bleeding ; findings are concordant with this. There is no soft tissue gas to suggest infection with gas-forming organism. Markedly distended urinary bladder, which is less distended on the second acquisition. This probably indicates interim voiding with a considerable postvoidresidual. There is evidence of a large bladder diverticulum which may be in part postsurgical. Left iliac fossa transplant kidney hydronephrosis, which is somewhat but not completely improved on the second acquisition with the lower bladder volume. Presumably related to the bladder distention as no other obstructing lesion is demonstrated. Extensive perinephric edema, possibly related to the above. Possibility of superimposed nephritis should also be considered. Cholelithiasis, also previously reported. Evidence of prior abdominal wall hernia mesh repair Mild pyuria afebrile, no leukocytosis CKD (previously on HD pre-transplant) s/p renal and pancreas Transplant ~10 yrs ago Recent Persistent Staph Epi bacteremia Jul 2017- AMY with no vegetations, likely from PICC line infection; s/p Rx -s/p PICC removal 08/09; cath cx <1+ CONS -08/06 Bcx 10/13 Staph epi/MRSE (labeld peripheral), Bcx 08/07 Neg 08/08 (line) 2/2 MRSE; 08/09 07/15 S.epi (however line was still in place); Bcx 08/11 08/15 S. epi; 2/ 2 Neg -TTE: Thickened mitral valve leaflets with normal excursion. Mild mitral annulus and aortic root calcification. Pulmonic valve is well visualized. Normal tricuspid valve structure. No echodensity is seen on valves (vegetation) -AMY 08/19: no vegetations History of enterococcus bacteremia back in May. -07/15 E fecalis (Amp R, Vanco S) History of suicidal attempts in the past. History of myocardial infarction. History of anemia. History of colon polyps. Plan: -Continue IV vancomycin and Aztreonam pending cx -09/10 SP Daptomycin #34 -f/u cx -Monitor CBC,/BMP, temperatures -Prior discharge, PICC line to be remove Thank you for this consultation. Will continue to follow along with you. Discussed with Monique Calhoun M.D. Sep 28, 2017 16:13
--- NOTE | 2017-09-28 16:15 | Diagnostic Imaging Report ---
Indication: Suspected urethral injury resulting in urethral obstruction Technique: Patient given preprocedure antibiotics. Informed consent obtained prior to commencement of procedure. Benefits, risks, alternatives, including risks of moderate sedation, discussed with patient, all questions answered. He indicated his willingness to proceed. Procedure timeout performed. Total sterile technique, including sterile gloves and hand hygiene, hat, mask, sterile gown, large sterile drape, and preparation with 2% chlorhexidine utilized. Superficial and deep anesthesia with 1% lidocaine Under real-time ultrasound guidance, using a midline approach, a 21-gauge AccuStick needle was directed into the lower part of the urinary bladder. Spontaneous return of urine observed. Small contrast injected, confirming intravesicular placement of the needle. 0.018 guidewire inserted, needle withdrawn, 6 Spanish AccuStick introducer assembly then inserted under fluoroscopic guidance. This was used to insert a 0.035 guidewire. The introducer stylet was removed, serial dilators passed over the guidewire, followed by introduction of a 14 Spanish pigtail all purpose drain catheter. Contrast was injected, confirming satisfactory position of the catheter. Catheter was placed to gravity drainage. The patient tolerated the procedure well, without immediate complication. Total fluoroscopy time 0.7 minutes. Total dose area product 63 dGycm2 Comparison: none Findings: As above Impression: Successful suprapubic cystostomy under ultrasound and fluoroscopic guidance, with placement of a 14 Spanish pigtail drainage catheter
[2017-09-28] MEDS ORDERED: Lidocaine 1% Plain 30 ml INJ SCH (17:00)
--- NOTE | 2017-09-28 18:17 | Consultation ---
History of Present Illness General Date patient seen: Sep 28, 2017 Chief Complaint: General Complaint Referring physician: Jamshid Reason for Consultation: retention Present Illness HPI 62-year-old male with hx failing renal transplant, depression, intermediate resident presented to ER after increased hematuria. Allergies: Coded Allergies: CEFEPIME (Verified Allergy, Intermediate, Rash, 01/23/13) Medication History Scheduled Amlodipine Besylate (Norvasc), 5 MG ORAL DAILY, (Reported) Aspirin* (Aspirin*), 81 MG ORAL DAILY Atorvastatin Calcium* (Lipitor*), 10 MG ORAL BEDTIME Atorvastatin Calcium* (Lipitor*), 10 MG ORAL BEDTIME, (Reported) Azathioprine (Azathioprine), 50 MG ORAL DAILY Azathioprine* (Imuran*), 50 MG PO DAILY, (Reported) Cholecalciferol (Vitamin D3)* (Vitamin D*), 5,000 INTLU ORAL Mo@09 Cranberry Fruit Concentrate (Cranberry), 450 MG PO DAILY, (Reported) Daptomycin (Cubicin Rf), MG IV 48 hrs, (Reported) Daptomycin (Cubicin Rf), 500 MG IV 48 hrs, (Reported) Docusate Sodium* (Colace*), 100 MG ORAL TWICE A DAY Doxycycline Hyclate (Doxycycline Hyclate), 100 MG PO BID Duloxetine Hcl* (Cymbalta*), 30 MG ORAL DAILY, (Reported) Epoetin Jose (Epogen), 10,000 UNIT SUBQ THREE TIMES A WEEK, (Reported) Ertapenem Sodium* (INVanz*), 1 GM IVPB Q24H, (Reported) Ferrous Sulfate* (Ferrous Sulfate*), 325 MG ORAL DAILY, (Reported) Finasteride (Finasteride), 5 MG ORAL DAILY Insulin Aspart (Novolog Flexpen), 10 UNITS SUBQ NOVOTIAC Insulin Aspart (Novolog Flexpen), 0 UNITS SUBQ BEFORE MEALS AND HS Insulin Aspart (Novolog Flexpen), 5 SQ AC, (Reported) Insulin Detemir (Levemir Flexpen), 15 UNITS SUBQ BID Insulin Glargine (Lantus), 6 SUBQ BID, (Reported) Insulin Glargine (Lantus), 10 SUBQ DAILY, (Reported) Insulin Glargine (Lantus), 6 SUBQ BEDTIME, (Reported) Insulin Lispro (Humalog), 4 SUBQ AC, (Reported) Linezolid (Zyvox), 600 MG IVPB EVERY 12 HOURS, (Reported) Metoprolol Succinate* (Metoprolol Succinate*), 50 MG ORAL Q12HR, (Reported) Omeprazole (Omeprazole), 40 MG ORAL DAILY, (Reported) Pantoprazole* (Protonix*), 40 MG ORAL DAILY Polyethylene Glycol* (Miralax*), 17 GM ORAL BEDTIME Sevelamer Carbonate* (Renvela*), 800 MG ORAL THREE TIMES A DAY, (Reported) Sodium Citrate (Sod Citrate-Citric Acid Soln), 30 ML ORAL THREE TIMES A DAY Tamsulosin HCl (Flomax), 0.4 MG ORAL BID, (Reported) Tamsulosin Hcl (Tamsulosin Hcl*), 0.4 MG ORAL BEDTIME Vit B Complex & C No.13/Fa/D3 (Nephrocaps Qt Tablet), 1 EACH PO DAILY, (Reported ) Vitamin D (Vitamin D3), 5,000 UNITS ORAL DAILY, (Reported) Warfarin Sod* (Coumadin*), 4 MG ORAL DAILY, (Reported) Scheduled PRN Acetaminophen (Acetaminophen), 650 MG ORAL Q6H PRN for Prn Headache/Temp > 101, (Reported) Ipratropium/Albuterol Sulfate (DuoNeb 0.5-3(2.5)mg/3ml), 3 ML HHN Q4HRT PRN for Shortness of Breath Ondansetron (Zofran), 4 MG ORAL Q6H PRN for Nausea & Vomiting, (Reported) [Warfarin RX monitoring], 1 EA MISC DAILY PRN for Per rx protocol Miscellaneous Medications Citric Acid/Sodium Citrate (Cytra-2 Oral Solution), 30 ML PO, (Reported) [Novolog ss], (Reported) Patient History Healthcare decision maker Resuscitation status Do Not Resuscitate Advanced Directive on File Physical Exam Last 24 Hour Vital Signs Date Time Temp Pulse Resp B/P (MAP) Pulse Ox O2 Delivery O2 Flow Rate FiO2 09/28/17 16:50 97.3 66 18 148/78 100 Nasal Cannula 3.0 97.3 09/28/17 16:50 97.7 80 18 100 Nasal Cannula 3.0 97.7 72 100 09/28/17 16:30 75 16 140/70 100 Nasal Cannula 3.0 09/28/17 16:15 73 18 142/78 100 Nasal Cannula 3.0 09/28/17 16:00 66 14 135/75 100 Nasal Cannula 3.0 09/28/17 15:50 97.5 68 15 144/77 100 Nasal Cannula 3.0 97.5 09/28/17 15:45 83 18 147/73 100 Nasal Cannula 3.0 09/28/17 15:35 81 20 151/75 100 Nasal Cannula 3.0 09/28/17 15:30 82 24 143/75 100 Nasal Cannula 3.0 09/28/17 15:25 83 24 146/78 100 Nasal Cannula 3.0 09/28/17 15:20 8 18 141/73 100 Nasal Cannula 3.0 09/28/17 15:15 82 18 143/72 100 Nasal Cannula 3.0 09/28/17 15:13 97.7 09/28/17 15:10 79 18 142/71 100 Nasal Cannula 3.0 09/28/17 15:00 79 12 142/70 100 Nasal Cannula 3.0 09/28/17 14:50 80 18 140/81 100 Nasal Cannula 3.0 09/28/17 14:45 82 18 140/81 100 Room Air 09/28/17 12:00 73 09/28/17 09:30 72 138/76 09/28/17 09:30 72 138/76 09/28/17 08:00 73 09/28/17 08:00 97.7 72 18 138/76 100 Room Air 97.7 09/28/17 04:00 72 09/28/17 04:00 97.7 80 19 146/80 97 Room Air 97.7 09/28/17 00:00 86 09/28/17 00:00 97.7 78 19 155/84 98 Room Air 97.7 09/27/17 23:23 76 161/79 09/27/17 20:00 74 09/27/17 20:00 98.1 74 19 162/82 99 Room Air 98.1 09/27/17 19:07 98.0 76 16 161/79 100 Room Air 98.0 09/27/17 18:50 98.0 76 16 161/79 100 Room Air 98.0 Intake and Output 09/27/17 09/28/17 19:00 07:00 Intake Total 100 ml Output Total 600 ml Balance 100 ml -600 ml IV Total 100 ml Output Urine Total 600 ml Laboratory Tests Test 09/28/17 08:25 09/28/17 10:30 09/28/17 12:20 White Blood Count 9.0 K/UL (4.8-10.8) Red Blood Count 2.44 M/UL (4.70-6.10) L Hemoglobin 7.5 G/DL (14.2-18.0) L Hematocrit 23.4 % (42.0-52.0) L Mean Corpuscular Volume 96 FL (80-99) Mean Corpuscular Hemoglobin 30.6 PG (27.0-31.0) Mean Corpuscular Hemoglobin Concent 31.9 G/DL (32.0-36.0) L Red Cell Distribution Width 16.4 % (11.6-14.8) H Platelet Count 239 K/UL (150-450) Mean Platelet Volume 6.5 FL (6.5-10.1) Neutrophils (%) (Auto) % (45.0-75.0) Lymphocytes (%) (Auto) % (20.0-45.0) Monocytes (%) (Auto) % (1.0-10.0) Eosinophils (%) (Auto) % (0.0-3.0) Basophils (%) (Auto) % (0.0-2.0) Differential Total Cells Counted 100 Neutrophils % (Manual) 80 % (45-75) H Lymphocytes % (Manual) 8 % (20-45) L Monocytes % (Manual) 6 % (1-10) Eosinophils % (Manual) 5 % (0-3) H Basophils % (Manual) 1 % (0-2) Band Neutrophils 0 % (0-8) Platelet Estimate Adequate Platelet Morphology Normal Hypochromasia 1+ Anisocytosis 1+ Sodium Level 138 MMOL/L (136-145) Potassium Level 5.1 MMOL/L (3.5-5.1) Chloride Level 106 MMOL/L (98-107) Carbon Dioxide Level 21 MMOL/L (21-32) Anion Gap 11 mmol/L (5-15) Blood Urea Nitrogen 73 mg/dL (7-18) H Creatinine 5.1 MG/DL (0.55-1.30) H Estimat Glomerular Filtration Rate 11.5 mL/min (>60) Glucose Level 191 MG/DL (74-106) #H Calcium Level 7.9 MG/DL (8.5-10.1) L Total Bilirubin 0.3 MG/DL (0.2-1.0) Aspartate Amino Transf (AST/SGOT) 11 U/L (15-37) L Alanine Aminotransferase (ALT/SGPT) 7 U/L (12-78) L Alkaline Phosphatase 76 U/L (46-116) C-Reactive Protein, Quantitative 9.4 mg/dL (0.00-0.90) H Total Protein 6.1 G/DL (6.4-8.2) L Albumin 2.1 G/DL (3.4-5.0) L Globulin 4.0 g/dL Albumin/Globulin Ratio 0.5 (1.0-2.7) L Prothrombin Time 16.7 SEC (9.30-11.50) H Prothromb Time International Ratio 1.6 (0.9-1.1) H Activated Partial Thromboplast Time 44 SEC (23-33) H Urine Color Red Urine Appearance Very cloudy Urine pH 8 (4.5-8.0) Urine Specific [place] 1.010 (1.005-1.035) Urine Protein 2+ (NEGATIVE) H Urine Glucose (UA) Negative (NEGATIVE) Urine Ketones Negative (NEGATIVE) Urine Occult Blood 5+ (NEGATIVE) H Urine Nitrite Negative (NEGATIVE) Urine Bilirubin Negative (NEGATIVE) Urine Urobilinogen Normal MG/DL (0.0-1.0) Urine Leukocyte Esterase 3+ (NEGATIVE) H Urine RBC Tntc /HPF (0 - 0) H Urine WBC 5-10 /HPF (0 - 0) H Urine Squamous Epithelial Cells Occasional /LPF Urine Bacteria Occasional /HPF (NONE) Urine Eosinophils Rare Urine Osmolality 335 mOsm/kg (429-449) L Urine Random Sodium 87 mmol/L (20-110) Urine Random Chloride 67 mmol/L (55-125) Urine Potassium Timed 15 mmol/L (12-62) Height (Feet): 5 Height (Inches): 9.00 Weight (Pounds): 190 Medications Current Medications Medications (Trade) Dose Ordered Sig/Dunia Route PRN Reason Start Time Stop Time Status Last Admin Dose Admin Acetaminophen (Tylenol) 650 mg Q4H PRN ORAL T>100.5 09/27/17 19:15 10/27/17 19:14 Albuterol/ Ipratropium (Albuterol/ Ipratropium) 3 ml Q4H PRN HHN Shortness of Breath 09/27/17 19:15 10/02/17 19:14 Amlodipine Besylate (Norvasc) 5 mg DAILY ORAL 09/28/17 09:00 10/28/17 08:59 09/28/17 09:30 Atorvastatin Calcium (Lipitor) 10 mg BEDTIME ORAL 09/27/17 21:00 10/27/17 20:59 09/27/17 23:22 Azathioprine (Imuran) 50 mg DAILY ORAL 09/28/17 09:00 10/28/17 08:59 09/28/17 10:10 Aztreonam 0.5 gm/ Sodium Chloride 55 ml @ 110 mls/hr Q8HR IVPB 09/28/17 06:00 10/05/17 05:59 09/28/17 13:24 Dextrose (Dextrose 50%) STAT PRN IV Hypoglycemia 09/27/17 19:15 10/27/17 19:14 Duloxetine HCl (Cymbalta) 30 mg DAILY ORAL 09/28/17 09:00 10/28/17 08:59 09/28/17 09:30 Epoetin Jose (Procrit (for non ESRD use)) 10,000 units WED-WED-WED SUBQ 09/29/17 21:00 10/29/17 20:59 Fentanyl Citrate (Sublimaze 100 mcg/2 mL) 100 mcg ONCE IV 09/28/17 14:45 09/28/17 23:59 09/28/17 15:13 Fentanyl Citrate 1000 mcg/Sodium Chloride 100 ml @ 0 mls/hr ONCE ONCE IV 09/28/17 14:15 09/28/17 14:16 UNV Heparin Sodium (Porcine) (Heparin 5000 units/ml) 5,000 units EVERY 12 HOURS SUBQ 09/27/17 21:00 10/27/17 20:59 09/27/17 23:20 Insulin Aspart (NovoLOG) BEFORE MEALS AND HS SUBQ 09/27/17 21:00 10/27/17 20:59 09/28/17 17:06 Lansoprazole (Prevacid) 30 mg DAILY ORAL 09/28/17 18:00 10/28/17 17:59 09/28/17 17:03 Lidocaine HCl (Xylocaine 1% 30ml) 30 ml ONCE INJ 09/28/17 17:00 09/28/17 23:59 09/28/17 17:14 Metoprolol Succinate (Toprol XL) 50 mg Q12HR ORAL 09/27/17 21:00 10/27/17 20:59 09/28/17 09:30 Midazolam HCl (Versed 2mg/2ml vial) 2 mg ONCE IVP 09/28/17 14:15 09/28/17 23:59 09/28/17 15:13 Morphine Sulfate (Morphine Sulfate) 2 mg Q4H PRN IVP Moderate Pain (Pain Scale 4-6) 09/27/17 19:15 10/04/17 19:14 Nitroglycerin (Ntg) 0.4 mg Q5MIN X 3 DOSES PRN SL Prn Chest Pain 09/27/17 19:30 10/27/17 19:29 Ondansetron HCl (Zofran) 4 mg Q6H PRN IVP Nausea & Vomiting 09/27/17 19:15 10/27/17 19:14 Polyethylene Glycol (Miralax) 17 gm DAILYPRN PRN ORAL Constipation 09/27/17 19:15 10/27/17 19:14 Sevelamer Carbonate (Renvela) 800 mg THREE TIMES A DAY ORAL 09/28/17 09:00 10/28/17 08:59 09/28/17 17:03 Sodium Chloride 1,000 ml @ 100 mls/hr Q10H IVLG 09/28/17 19:30 10/28/17 19:29 Temazepam (Restoril) 15 mg HSPRN PRN ORAL Insomnia 09/27/17 21:00 10/04/17 20:59 Vancomycin HCl (Vanco rx to dose) 1 ea DAILY PRN MISC . 09/27/17 19:45 10/27/17 19:44 Fatmata Lu M.D. Sep 28, 2017 18:17
--- NOTE | 2017-09-28 18:38 | Cardiology Report ---
APPROVED REPORT EKG Measurement Heart [id number] [id number] Normal sinus rhythm Left anterior fascicular block Abnormal ECG
[2017-09-28] MEDS ORDERED: Lidocaine 1% Plain 30 ml INJ ONE (19:00)
[2017-09-28] MEDS ORDERED: Nitroglycerin Subl 0.4mg tab SL PRN (19:00)
[2017-09-28] MEDS ORDERED: Midazolam 2mg/2ml Inj IVP ONE (19:00)
[2017-09-28] MEDS ORDERED: Miralax 17gm pkt ORAL PRN (19:15)
[2017-09-28] MEDS ORDERED: Morphine Sulfate 2mg/ml Inj IVP PRN (19:15)
[2017-09-28] MEDS ORDERED: Albuterol/Ipratropium 3ml neb HHN PRN (19:15)
--- NOTE | 2017-09-28 20:15 | Consultation ---
History of Present Illness General Date patient seen: Sep 27, 2017 Chief Complaint: General Complaint Referring physician: Jamshid Reason for Consultation: retention Present Illness HPI 62-year-old male with hx of anxiety and failing renal transplant, depression, group home resident presented to ER after increased hematuria. the pt is depressed and has low energy. the pt is not endorsing si/hi Allergies: Coded Allergies: CEFEPIME (Verified Allergy, Intermediate, Rash, 01/23/13) Medication History Scheduled Amlodipine Besylate (Norvasc), 5 MG ORAL DAILY, (Reported) Aspirin* (Aspirin*), 81 MG ORAL DAILY Atorvastatin Calcium* (Lipitor*), 10 MG ORAL BEDTIME Atorvastatin Calcium* (Lipitor*), 10 MG ORAL BEDTIME, (Reported) Azathioprine (Azathioprine), 50 MG ORAL DAILY Azathioprine* (Imuran*), 50 MG PO DAILY, (Reported) Cholecalciferol (Vitamin D3)* (Vitamin D*), 5,000 INTLU ORAL Mo@09 Cranberry Fruit Concentrate (Cranberry), 450 MG PO DAILY, (Reported) Daptomycin (Cubicin Rf), MG IV 48 hrs, (Reported) Daptomycin (Cubicin Rf), 500 MG IV 48 hrs, (Reported) Docusate Sodium* (Colace*), 100 MG ORAL TWICE A DAY Doxycycline Hyclate (Doxycycline Hyclate), 100 MG PO BID Duloxetine Hcl* (Cymbalta*), 30 MG ORAL DAILY, (Reported) Epoetin Jose (Epogen), 10,000 UNIT SUBQ THREE TIMES A WEEK, (Reported) Ertapenem Sodium* (INVanz*), 1 GM IVPB Q24H, (Reported) Ferrous Sulfate* (Ferrous Sulfate*), 325 MG ORAL DAILY, (Reported) Finasteride (Finasteride), 5 MG ORAL DAILY Insulin Aspart (Novolog Flexpen), 10 UNITS SUBQ NOVOTIAC Insulin Aspart (Novolog Flexpen), 0 UNITS SUBQ BEFORE MEALS AND HS Insulin Aspart (Novolog Flexpen), 5 SQ AC, (Reported) Insulin Detemir (Levemir Flexpen), 15 UNITS SUBQ BID Insulin Glargine (Lantus), 6 SUBQ BID, (Reported) Insulin Glargine (Lantus), 10 SUBQ DAILY, (Reported) Insulin Glargine (Lantus), 6 SUBQ BEDTIME, (Reported) Insulin Lispro (Humalog), 4 SUBQ AC, (Reported) Linezolid (Zyvox), 600 MG IVPB EVERY 12 HOURS, (Reported) Metoprolol Succinate* (Metoprolol Succinate*), 50 MG ORAL Q12HR, (Reported) Omeprazole (Omeprazole), 40 MG ORAL DAILY, (Reported) Pantoprazole* (Protonix*), 40 MG ORAL DAILY Polyethylene Glycol* (Miralax*), 17 GM ORAL BEDTIME Sevelamer Carbonate* (Renvela*), 800 MG ORAL THREE TIMES A DAY, (Reported) Sodium Citrate (Sod Citrate-Citric Acid Soln), 30 ML ORAL THREE TIMES A DAY Tamsulosin HCl (Flomax), 0.4 MG ORAL BID, (Reported) Tamsulosin Hcl (Tamsulosin Hcl*), 0.4 MG ORAL BEDTIME Vit B Complex & C No.13/Fa/D3 (Nephrocaps Qt Tablet), 1 EACH PO DAILY, (Reported ) Vitamin D (Vitamin D3), 5,000 UNITS ORAL DAILY, (Reported) Warfarin Sod* (Coumadin*), 4 MG ORAL DAILY, (Reported) Scheduled PRN Acetaminophen (Acetaminophen), 650 MG ORAL Q6H PRN for Prn Headache/Temp > 101, (Reported) Ipratropium/Albuterol Sulfate (DuoNeb 0.5-3(2.5)mg/3ml), 3 ML HHN Q4HRT PRN for Shortness of Breath Ondansetron (Zofran), 4 MG ORAL Q6H PRN for Nausea & Vomiting, (Reported) [Warfarin RX monitoring], 1 EA MISC DAILY PRN for Per rx protocol Miscellaneous Medications Citric Acid/Sodium Citrate (Cytra-2 Oral Solution), 30 ML PO, (Reported) [Novolog ss], (Reported) Patient History History Provided By: Patient, Medical Record, PMD Healthcare decision maker Resuscitation status Do Not Resuscitate Advanced Directive on File Past Medical/Surgical History Past Medical/Surgical History: (1) UTI (urinary tract infection) (2) Encephalopathy acute (3) Renal osteodystrophy (4) Gastritis (5) Hypoparathyroidism (6) Vitamin D deficiency (7) Hematemesis (8) Hypokalemia (9) Gastrointestinal hemorrhage (10) Gastrointestinal hemorrhage (11) Anemia (12) GI bleeding (13) GI hemorrhage (14) Pancreatitis (15) Iron deficiency anemia (16) DVT (deep venous thrombosis) (17) Fall (18) Head trauma (19) Head trauma (20) Acidosis, metabolic (21) UTI (lower urinary tract infection) (22) Colon polyps (23) Abnormal laboratory test result (24) Renal mass, right (25) RIVKA (acute kidney injury) (26) Laceration of lip (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, diabetic, left eye (28) Excessive anticoagulation (29) Elevated lipase (30) DVT of axillary vein, chronic (31) Hematuria (32) urinary retention (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 (34) Gastritis (35) Hypercholesteremia (36) BPH (benign prostatic hyperplasia) (37) Acute hyperglycemia (38) Hyperglycemia due to type 2 diabetes mellitus (39) Bacteremia (40) Nephropathy, diabetic (41) CKD (chronic kidney disease), stage III (42) Sepsis (43) Hydronephrosis (44) Chronic kidney disease (CKD) (45) BPH (benign prostatic hypertrophy) (46) Hematuria (47) DKA (diabetic ketoacidoses) (48) Hyponatremia (49) Retention, urine (50) ESRD (end stage renal disease) (51) Uncontrolled diabetes mellitus (52) Coagulopathy (53) Altered mental state (54) Respiratory disease (55) diabetic keto acidosis (56) Renal insufficiency (57) Elevated troponin (58) Dehydration (59) Renal insufficiency (60) Acute renal failure (ARF) (61) CKD (chronic kidney disease), stage III (62) DKA (diabetic ketoacidoses) (63) CO (myocardial infarction) (64) C. difficile colitis (65) Staphylococcus aureus pneumonia (66) Hypernatremia (67) DM (diabetes mellitus) (68) Anemia (69) GI bleeding (70) DM (diabetes mellitus) (71) Acute hyperglycemia (72) Anemia (73) Hyponatremia (74) CKD (chronic kidney disease), stage III (75) Renal insufficiency (76) Dehydration (77) Coronary heart disease (78) Psychiatric disturbance (79) Pulmonary HTN (80) Acute on chronic renal failure (81) CAD (coronary artery disease) (82) HTN (hypertension) (83) Anemia in chronic kidney disease (84) Anemia in chronic kidney disease (85) Iron deficiency anemia Review of Systems Psychiatric: Reports: prior hx, anxiety, depressed feelings Physical Exam General Appearance: no apparent distress, alert Neurologic: oriented x 3, depressed affect Last 24 Hour Vital Signs Date Time Temp Pulse Resp B/P (MAP) Pulse Ox O2 Delivery O2 Flow Rate FiO2 09/28/17 19:55 Room Air 09/28/17 19:53 98.2 75 18 121/58 100 98.2 09/28/17 18:30 98.3 76 18 124/60 100 Nasal Cannula 3.0 98.3 09/28/17 16:50 97.3 66 18 148/78 100 Nasal Cannula 3.0 97.3 09/28/17 16:50 97.7 80 18 100 Nasal Cannula 3.0 97.7 72 100 09/28/17 16:30 75 16 140/70 100 Nasal Cannula 3.0 09/28/17 16:15 73 18 142/78 100 Nasal Cannula 3.0 09/28/17 16:00 66 14 135/75 100 Nasal Cannula 3.0 09/28/17 15:50 97.5 68 15 144/77 100 Nasal Cannula 3.0 97.5 09/28/17 15:45 83 18 147/73 100 Nasal Cannula 3.0 09/28/17 15:35 81 20 151/75 100 Nasal Cannula 3.0 09/28/17 15:30 82 24 143/75 100 Nasal Cannula 3.0 09/28/17 15:25 83 24 146/78 100 Nasal Cannula 3.0 09/28/17 15:20 8 18 141/73 100 Nasal Cannula 3.0 09/28/17 15:15 82 18 143/72 100 Nasal Cannula 3.0 09/28/17 15:13 97.7 09/28/17 15:10 79 18 142/71 100 Nasal Cannula 3.0 09/28/17 15:00 79 12 142/70 100 Nasal Cannula 3.0 09/28/17 14:50 80 18 140/81 100 Nasal Cannula 3.0 09/28/17 14:45 82 18 140/81 100 Room Air 09/28/17 12:00 73 09/28/17 09:30 72 138/76 09/28/17 09:30 72 138/76 09/28/17 08:00 73 09/28/17 08:00 97.7 72 18 138/76 100 Room Air 97.7 09/28/17 04:00 72 09/28/17 04:00 97.7 80 19 146/80 97 Room Air 97.7 09/28/17 00:00 86 09/28/17 00:00 97.7 78 19 155/84 98 Room Air 97.7 09/27/17 23:23 76 161/79 Intake and Output 09/27/17 09/28/17 19:00 07:00 Intake Total 100 ml Output Total 600 ml Balance 100 ml -600 ml IV Total 100 ml Output Urine Total 600 ml Laboratory Tests Test 09/28/17 08:25 09/28/17 10:30 09/28/17 12:20 White Blood Count 9.0 K/UL (4.8-10.8) Red Blood Count 2.44 M/UL (4.70-6.10) L Hemoglobin 7.5 G/DL (14.2-18.0) L Hematocrit 23.4 % (42.0-52.0) L Mean Corpuscular Volume 96 FL (80-99) Mean Corpuscular Hemoglobin 30.6 PG (27.0-31.0) Mean Corpuscular Hemoglobin Concent 31.9 G/DL (32.0-36.0) L Red Cell Distribution Width 16.4 % (11.6-14.8) H Platelet Count 239 K/UL (150-450) Mean Platelet Volume 6.5 FL (6.5-10.1) Neutrophils (%) (Auto) % (45.0-75.0) Lymphocytes (%) (Auto) % (20.0-45.0) Monocytes (%) (Auto) % (1.0-10.0) Eosinophils (%) (Auto) % (0.0-3.0) Basophils (%) (Auto) % (0.0-2.0) Differential Total Cells Counted 100 Neutrophils % (Manual) 80 % (45-75) H Lymphocytes % (Manual) 8 % (20-45) L Monocytes % (Manual) 6 % (1-10) Eosinophils % (Manual) 5 % (0-3) H Basophils % (Manual) 1 % (0-2) Band Neutrophils 0 % (0-8) Platelet Estimate Adequate Platelet Morphology Normal Hypochromasia 1+ Anisocytosis 1+ Sodium Level 138 MMOL/L (136-145) Potassium Level 5.1 MMOL/L (3.5-5.1) Chloride Level 106 MMOL/L (98-107) Carbon Dioxide Level 21 MMOL/L (21-32) Anion Gap 11 mmol/L (5-15) Blood Urea Nitrogen 73 mg/dL (7-18) H Creatinine 5.1 MG/DL (0.55-1.30) H Estimat Glomerular Filtration Rate 11.5 mL/min (>60) Glucose Level 191 MG/DL (74-106) #H Calcium Level 7.9 MG/DL (8.5-10.1) L Total Bilirubin 0.3 MG/DL (0.2-1.0) Aspartate Amino Transf (AST/SGOT) 11 U/L (15-37) L Alanine Aminotransferase (ALT/SGPT) 7 U/L (12-78) L Alkaline Phosphatase 76 U/L (46-116) C-Reactive Protein, Quantitative 9.4 mg/dL (0.00-0.90) H Total Protein 6.1 G/DL (6.4-8.2) L Albumin 2.1 G/DL (3.4-5.0) L Globulin 4.0 g/dL Albumin/Globulin Ratio 0.5 (1.0-2.7) L Prothrombin Time 16.7 SEC (9.30-11.50) H Prothromb Time International Ratio 1.6 (0.9-1.1) H Activated Partial Thromboplast Time 44 SEC (23-33) H Urine Color Red Urine Appearance Very cloudy Urine pH 8 (4.5-8.0) Urine Specific [place] 1.010 (1.005-1.035) Urine Protein 2+ (NEGATIVE) H Urine Glucose (UA) Negative (NEGATIVE) Urine Ketones Negative (NEGATIVE) Urine Occult Blood 5+ (NEGATIVE) H Urine Nitrite Negative (NEGATIVE) Urine Bilirubin Negative (NEGATIVE) Urine Urobilinogen Normal MG/DL (0.0-1.0) Urine Leukocyte Esterase 3+ (NEGATIVE) H Urine RBC Tntc /HPF (0 - 0) H Urine WBC 5-10 /HPF (0 - 0) H Urine Squamous Epithelial Cells Occasional /LPF Urine Bacteria Occasional /HPF (NONE) Urine Eosinophils Rare Urine Osmolality 335 mOsm/kg (429-449) L Urine Random Sodium 87 mmol/L (20-110) Urine Random Chloride 67 mmol/L (55-125) Urine Potassium Timed 15 mmol/L (12-62) Height (Feet): 5 Height (Inches): 9.00 Weight (Pounds): 190 Medications Current Medications Medications (Trade) Dose Ordered Sig/Dunia Route PRN Reason Start Time Stop Time Status Last Admin Dose Admin Acetaminophen (Tylenol) 650 mg Q4H PRN ORAL T>100.5 09/28/17 19:15 10/27/17 19:14 Albuterol/ Ipratropium (Albuterol/ Ipratropium) 3 ml Q4H PRN HHN Shortness of Breath 09/28/17 19:15 10/02/17 19:14 Amlodipine Besylate (Norvasc) 5 mg DAILY ORAL 09/29/17 09:00 10/28/17 08:59 Atorvastatin Calcium (Lipitor) 10 mg BEDTIME ORAL 09/28/17 21:00 10/27/17 20:59 Azathioprine (Imuran) 50 mg DAILY ORAL 09/29/17 09:00 10/28/17 08:59 Aztreonam 0.5 gm/ Sodium Chloride 55 ml @ 110 mls/hr Q8HR IVPB 09/28/17 22:00 10/05/17 05:59 Dextrose (Dextrose 50%) STAT PRN IV Hypoglycemia 09/28/17 19:15 10/27/17 19:14 Duloxetine HCl (Cymbalta) 30 mg DAILY ORAL 09/29/17 09:00 10/28/17 08:59 Epoetin Jose (Procrit (for non ESRD use)) 10,000 units MON-WED-WED SUBQ 09/29/17 21:00 10/29/17 20:59 Fentanyl Citrate 1000 mcg/Sodium Chloride 100 ml @ 0 mls/hr ONCE ONCE IV 09/29/17 14:15 09/29/17 14:16 UNV Heparin Sodium (Porcine) (Heparin 5000 units/ml) 5,000 units EVERY 12 HOURS SUBQ 09/28/17 21:00 10/27/17 20:59 Insulin Aspart (NovoLOG) BEFORE MEALS AND HS SUBQ 09/28/17 21:00 10/27/17 20:59 Lansoprazole (Prevacid) 30 mg DAILY ORAL 09/29/17 09:00 10/28/17 17:59 Metoprolol Succinate (Toprol XL) 50 mg Q12HR ORAL 09/28/17 21:00 10/27/17 20:59 Morphine Sulfate (Morphine Sulfate) 2 mg Q4H PRN IVP Moderate Pain (Pain Scale 4-6) 09/28/17 19:15 10/04/17 19:14 Nitroglycerin (Ntg) 0.4 mg Q5MIN X 3 DOSES PRN SL Prn Chest Pain 09/28/17 19:00 10/27/17 19:29 Ondansetron HCl (Zofran) 4 mg Q6H PRN IVP Nausea & Vomiting 09/28/17 19:15 10/27/17 19:14 Polyethylene Glycol (Miralax) 17 gm DAILYPRN PRN ORAL Constipation 09/28/17 19:15 10/27/17 19:14 Sevelamer Carbonate (Renvela) 800 mg THREE TIMES A DAY ORAL 09/29/17 09:00 10/28/17 08:59 Sodium Chloride 1,000 ml @ 100 mls/hr Q10H IVLG 09/28/17 20:00 10/28/17 19:59 Temazepam (Restoril) 15 mg HSPRN PRN ORAL Insomnia 09/28/17 21:00 10/04/17 20:59 Vancomycin HCl (Vanco rx to dose) 1 ea DAILYPRN PRN MISC RX TO DOSE 09/28/17 19:15 10/28/17 19:14 Assessment/Plan Status: stable Assessment/Plan mdd anxiety d/o cymbalta 30mg Fatmata Emery M.D. Sep 28, 2017 20:15
--- NOTE | 2017-09-28 20:17 | General Progress Note ---
Assessment/Plan Status: stable Assessment/Plan mdd cymbalta 30mg qam provided ro/st Subjective Date patient seen: Sep 28, 2017 Neurologic/Psychiatric: Reports: anxiety, depressed, emotional problems Allergies: Coded Allergies: CEFEPIME (Verified Allergy, Intermediate, Rash, 01/23/13) Objective Last 24 Hour Vital Signs Date Time Temp Pulse Resp B/P (MAP) Pulse Ox O2 Delivery O2 Flow Rate FiO2 09/28/17 19:55 Room Air 09/28/17 19:53 98.2 75 18 121/58 100 98.2 09/28/17 18:30 98.3 76 18 124/60 100 Nasal Cannula 3.0 98.3 09/28/17 16:50 97.3 66 18 148/78 100 Nasal Cannula 3.0 97.3 09/28/17 16:50 97.7 80 18 100 Nasal Cannula 3.0 97.7 72 100 09/28/17 16:30 75 16 140/70 100 Nasal Cannula 3.0 09/28/17 16:15 73 18 142/78 100 Nasal Cannula 3.0 09/28/17 16:00 66 14 135/75 100 Nasal Cannula 3.0 09/28/17 15:50 97.5 68 15 144/77 100 Nasal Cannula 3.0 97.5 09/28/17 15:45 83 18 147/73 100 Nasal Cannula 3.0 09/28/17 15:35 81 20 151/75 100 Nasal Cannula 3.0 09/28/17 15:30 82 24 143/75 100 Nasal Cannula 3.0 09/28/17 15:25 83 24 146/78 100 Nasal Cannula 3.0 09/28/17 15:20 8 18 141/73 100 Nasal Cannula 3.0 09/28/17 15:15 82 18 143/72 100 Nasal Cannula 3.0 09/28/17 15:13 97.7 09/28/17 15:10 79 18 142/71 100 Nasal Cannula 3.0 09/28/17 15:00 79 12 142/70 100 Nasal Cannula 3.0 09/28/17 14:50 80 18 140/81 100 Nasal Cannula 3.0 09/28/17 14:45 82 18 140/81 100 Room Air 09/28/17 12:00 73 09/28/17 09:30 72 138/76 3/20/18 09:30 72 138/76 3/20/18 08:00 73 09/28/17 08:00 97.7 72 18 138/76 100 Room Air 97.7 09/28/17 04:00 72 09/28/17 04:00 97.7 80 19 146/80 97 Room Air 97.7 09/28/17 00:00 86 09/28/17 00:00 97.7 78 19 155/84 98 Room Air 97.7 09/27/17 23:23 76 161/79 Intake and Output 09/27/17 09/28/17 19:00 07:00 Intake Total 100 ml Output Total 600 ml Balance 100 ml -600 ml IV Total 100 ml Output Urine Total 600 ml Laboratory Tests 09/28/17 08:25: White Blood Count 9.0, Red Blood Count 2.44L, Hemoglobin 7.5L, Hematocrit 23.4L , Mean Corpuscular Volume 96, Mean Corpuscular Hemoglobin 30.6, Mean Corpuscular Hemoglobin Concent 31.9L, Red Cell Distribution Width 16.4H, Platelet Count 239, Mean Platelet Volume 6.5, Neutrophils (%) (Auto) , Lymphocytes (%) (Auto) , Monocytes (%) (Auto) , Eosinophils (%) (Auto) , Basophils (%) (Auto) , Differential Total Cells Counted 100, Neutrophils % ( Manual) 80H, Lymphocytes % (Manual) 8L, Monocytes % (Manual) 6, Eosinophils % ( Manual) 5H, Basophils % (Manual) 1, Band Neutrophils 0, Platelet Estimate Adequate, Platelet Morphology Normal, Hypochromasia 1+, Anisocytosis 1+, Sodium Level 138, Potassium Level 5.1, Chloride Level 106, Carbon Dioxide Level 21, Anion Gap 11, Blood Urea Nitrogen 73H, Creatinine 5.1H, Estimat Glomerular Filtration Rate 11.5, Glucose Level 191#H, Calcium Level 7.9L, Total Bilirubin 0.3, Aspartate Amino Transf (AST/SGOT) 11L, Alanine Aminotransferase (ALT/SGPT) 7L, Alkaline Phosphatase 76, C-Reactive Protein, Quantitative 9.4H, Total Protein 6.1L, Albumin 2.1L, Globulin 4.0, Albumin/Globulin Ratio 0.5L 09/28/17 10:30: Prothrombin Time 16.7H, Prothromb Time International Ratio 1.6H, Activated Partial Thromboplast Time 44H 09/28/17 12:20: Urine Color Red, Urine Appearance Very cloudy, Urine pH 8, Urine Specific [place] 1.010, Urine Protein 2+H, Urine Glucose (UA) Negative, Urine Ketones Negative, Urine Occult Blood 5+H, Urine Nitrite Negative, Urine Bilirubin Negative, Urine Urobilinogen Normal, Urine Leukocyte Esterase 3+H, Urine RBC TntcH, Urine WBC 5-10H, Urine Squamous Epithelial Cells Occasional, Urine Bacteria Occasional, Urine Eosinophils Rare, Urine Osmolality 335L, Urine Random Sodium 87, Urine Random Chloride 67, Urine Potassium Timed 15 Height (Feet): 5 Height (Inches): 9.00 Weight (Pounds): 190 General Appearance: no apparent distress, alert Neurologic: oriented x 3, responsive, depressed affect Fatmata Lu M.D. Sep 28, 2017 20:16
--- NOTE | 2017-09-28 20:31 | History and Physical Report ---
DATE OF ADMISSION: 09/27/2017 CHIEF COMPLAINT: The patient is a 62-year-old white male with history of renal pancreatic transplant in 1997 who presents with chief complaint of blood in the urine. HISTORY OF PRESENT ILLNESS: The patient was admitted to [facility] from August 06, 2017 to August 21, 2017. Please see history and physical and discharge summary dictated at that time. The patient states that he began to notice blood in his urine yesterday September 27, 2017. The patient presented to [place] emergency room. The patient was found to have gross hematuria. The patient admitted for hematuria to rule out acute renal failure. REVIEW OF SYSTEMS: CONSTITUTIONAL: The patient denies weight loss or weight gain. The patient denies fevers or chills. HEENT: The patient denies ear or throat pain. The patient denies headache. CARDIOVASCULAR: The patient denies palpitations or chest pain. CHEST: The patient denies wheeze or shortness of breath. ABDOMEN: The patient denies nausea, vomiting, diarrhea, or constipation. GENITOURINARY: The patient complains of hematuria as above. The patient denies dysuria or increased frequency of urination. NEUROLOGIC: The patient denies seizures or generalized weakness. PAST MEDICAL HISTORY: Significant for. 1. Type 2 diabetes. 2. Chronic renal failure, stage 4. 3. Anemia. 4. Renal osteodystrophy. 5. Secondary hyperparathyroidism. 6. Gastritis. 7. Coronary artery disease status post stent placement in 2007. 8. Non-ST myocardial infarction x3. 9. Hypertension. 10. Benign prostatic hypertrophy. 11. Left eye blindness. 12. Hypercholesterolemia. 13. Major depression, status post suicide attempt in 2012 by insulin overdose. PAST SURGICAL HISTORY: Significant for: 1. Renal pancreatic transplant in 1987, status post rejection. 2. Bilateral nephrectomy in 2014. 3. Left eye prosthesis. CURRENT MEDICATIONS: 1. Tylenol 650 mg p.o. q.6 hours p.r.n. 2. Amlodipine 5 mg p.o. daily. 3. Aspirin 81 mg p.o. daily. 4. Atorvastatin 10 mg p.o. at bedtime. 5. Azathioprine 50 mg p.o. daily. 6. Vitamin D3 5000 units daily. 7. Cymbalta 30 mg p.o. daily. 8. Epogen 10,000 units subcutaneously three times weekly. 9. Ertapenem. 10. Iron sulfate 325 mg p.o. daily. 11. Finasteride 5 mg p.o. daily. 12. NovoLog sliding scale. 13. Levemir 15 units subcutaneously twice daily. 14. DuoNeb nebulized q.4 h. p.r.n. 15. Metoprolol 50 mg p.o. daily. 16. Omeprazole 40 mg p.o. daily. 17. Renvela 800 mg p.o. three times daily. 18. Flomax 0.4 mg p.o. twice daily. 19. Coumadin 4 mg p.o. daily. ALLERGIES: To cefepime. SOCIAL HISTORY: The patient is a resident of [facility]. The patient is single. The patient denies tobacco or alcohol use. PHYSICAL EXAMINATION: VITAL SIGNS: Temperature 97.7, respirations 19, pulse 72, blood pressure 146/80. GENERAL: The patient is well-developed and well-nourished white male, in no apparent distress. HEENT: Eyes, pupils are equal and responsive to light and accommodation. Extraocular movements are intact. NECK: Supple without lymphadenopathy. CHEST: Lungs are clear to auscultation bilaterally without wheezes or rales. CARDIOVASCULAR: Regular rhythm and rate. S1 and S2 normal without murmurs, rubs, or gallops. ABDOMEN: Soft, nontender, nondistended. Positive bowel sounds. No evidence of hepatosplenomegaly. Currently, no rebound or guarding noted. EXTREMITIES: Negative for clubbing, cyanosis, or edema. RECTAL/GENITAL: Refused. NEUROLOGIC: Cranial nerves II to XII are grossly intact without focal deficits. Motor strength is 5/5 bilaterally. Deep tendon reflexes are 2+ plantar. DIAGNOSTIC DATA: CT scan of the abdomen showed hemorrhage around the penile shaft extending into the adjacent subcutaneous . There is marked edema and ecchymosis of the scrotal wall. LABORATORY STUDIES: Urinalysis 2+ protein, 5+ occult blood, 3+ leukocyte esterase, rbc's too numerous to count, 5-10 wbc's. WBC 9.0, hemoglobin 9.1, hematocrit 28.7, platelets 262,000. Sodium 138, potassium 5.1, chloride 106, CO2 21, BUN 73, creatinine 5.1, and glucose 191. ASSESSMENT: This is a 62-year-old white male. 1. Hematuria. 2. Diabetes type 2. 3. Chronic renal failure, stage 4. 4. Renal osteodystrophy. 5. Secondary hyperparathyroidism. 6. Gastritis. 7. Coronary artery disease. 8. Hypertension. 9. Benign prostatic hypertrophy. 10. Blindness. 11. Hypertension. 12. Major depression. TREATMENT: 1. Hematuria. A Nephrology consultation obtained with Dr. Chambers. Urology consultation has been obtained with Dr. Mccain. Source of the penile hemorrhage is unknown. We will follow recommendations of Urology and Nephrology. 2. Diabetes type 2. The patient has been started on NovoLog sliding scale. 3. Chronic renal failure stage 4. As above, Nephrology consultation with Dr. Chambers. 4. Renal osteodystrophy. 5. Secondary hyperparathyroidism. 6. Gastritis. 7. Coronary artery disease. 8. Hypertension. Continue metoprolol as above. 9. Benign prostatic hypertrophy. Continue Flomax as above. 10. Left eye blindness. 11. Hypercholesterolemia. Continue Lipitor as above. 12. Major depression. Continue Cymbalta as above. Jose Glasgow M.D. DR: Pamela JOB#: [id number] CC:
[2017-09-28] MEDS ORDERED: Aztreonam Inj 0.5 GM in NS 55 ML IVPB SCH (22:00)
[2017-09-28] MEDS: Dyna-Hex 2% Top Sol 2oz TOPIC SCH (22:49)
[2017-09-29 00:40] VITALS: BP 129/59
[2017-09-29 04:00] VITALS: BP 134/55
[2017-09-29] MEDS: NovoLOG Insulin Flexpen SUBQ SCH ×4 (06:10→21:12)
[2017-09-29 07:30] LABS: HEMATOCRIT 19.7 % (42.0-52.0); MEAN CORPUSCULAR VOLUME 96 FL (80-99); PLATELET COUNT 212 K/UL (150-450); RED BLOOD COUNT 2.05 M/UL (4.70-6.10); RED CELL DISTRIBUTION WIDTH 15.8 % (11.6-14.8); WHITE BLOOD COUNT 6.2 K/UL (4.8-10.8)
[2017-09-29 07:34] LABS: HEMOGLOBIN 6.6 G/DL (14.2-18.0)
[2017-09-29 07:48] LABS: ALANINE AMINOTRANSFERASE 13 U/L (12-78); ALBUMIN 2.3 G/DL (3.4-5.0); ALBUMIN/GLOBULIN RATIO 0.6 (1.0-2.7); ALKALINE PHOSPHATASE 73 U/L (46-116); ANION GAP 11 mmol/L (5-15); ASPARTATE AMINO TRANSFERASE 8 U/L (15-37); BILIRUBIN,TOTAL 0.5 MG/DL (0.2-1.0); BLOOD UREA NITROGEN 69 mg/dL (7-18); CARBON DIOXIDE 22 MMOL/L (21-32); CHLORIDE 106 MMOL/L (98-107); CREATININE 4.8 MG/DL (0.55-1.30); POTASSIUM 5.1 MMOL/L (3.5-5.1); SODIUM 139 MMOL/L (136-145)
[2017-09-29 07:49] LABS: INR 1.2 (0.9-1.1)
[2017-09-29 07:57] LABS: CREATINE KINASE 57 U/L (26-308); GAMMA GLUTAMYL TRANSPEPTIDASE 9 U/L (5-85)
[2017-09-29 07:58] LABS: CHOLESTEROL 85 MG/DL (< 200); FERRITIN 622 NG/ML (8-388); HDL CHOLESTEROL 29 MG/DL (40-60); PHOSPHORUS 3.7 MG/DL (2.5-4.9); TRIGLYCERIDES 64 MG/DL (30-150)
[2017-09-29 08:00] VITALS: BP 138/69
[2017-09-29] MEDS: Heparin 5000 units/ml inj SUBQ SCH ×3 (09:00→20:16)
[2017-09-29] MEDS: Aztreonam Inj 0.5 GM in NS 55 ML IVPB SCH ×2 (10:12→19:56)
[2017-09-29] MEDS: Metoprolol Succinate XL 50mg tab ORAL SCH ×2 (10:13→21:09)
[2017-09-29] MEDS: DULoxetine 30mg cap ORAL SCH (10:13)
[2017-09-29] MEDS: azaTHIOprine 50 MG TAB ORAL SCH (10:18)
[2017-09-29] MEDS ORDERED: Vancomycin 1250mg/D5W 250ml IVPB ONE (10:30)
[2017-09-29 12:00] VITALS: BP 133/65
--- NOTE | 2017-09-29 12:50 | Internal Med Progress Note ---
Subjective Date of Service: Sep 29, 2017 Physician Name Dee Glasgow Attending Physician Christopher Rosado MD Current Medications Medications (Trade) Dose Ordered Sig/Dunia Route PRN Reason Start Time Stop Time Status Last Admin Dose Admin Acetaminophen (Tylenol) 650 mg Q4H PRN ORAL T>100.5 09/28/17 19:15 10/27/17 19:14 Albuterol/ Ipratropium (Albuterol/ Ipratropium) 3 ml Q4H PRN HHN Shortness of Breath 09/28/17 19:15 10/02/17 19:14 Amlodipine Besylate (Norvasc) 5 mg DAILY ORAL 09/29/17 09:00 10/28/17 08:59 09/29/17 10:13 Atorvastatin Calcium (Lipitor) 10 mg BEDTIME ORAL 09/28/17 21:00 10/27/17 20:59 09/28/17 20:22 Azathioprine (Imuran) 50 mg DAILY ORAL 09/29/17 09:00 10/28/17 08:59 09/29/17 10:18 Aztreonam 0.5 gm/ Sodium Chloride 55 ml @ 110 mls/hr Q8H IVPB 09/29/17 10:00 10/06/17 09:59 09/29/17 10:12 Chlorhexidine Gluconate (Eloisa-Hex 2%) 1 applic DAILY@2000 TOPIC 09/28/17 22:30 10/28/17 22:29 09/28/17 22:49 Dextrose (Dextrose 50%) STAT PRN IV Hypoglycemia 09/28/17 19:15 10/27/17 19:14 Duloxetine HCl (Cymbalta) 30 mg DAILY ORAL 09/29/17 09:00 10/28/17 08:59 09/29/17 10:13 Epoetin Jose (Procrit (for non ESRD use)) 10,000 units MON-WED-FRI SUBQ 09/29/17 21:00 10/29/17 20:59 Fentanyl Citrate 1000 mcg/Sodium Chloride 100 ml @ 0 mls/hr ONCE ONCE IV 09/29/17 14:15 09/29/17 14:16 UNV Heparin Sodium (Porcine) (Heparin 5000 units/ml) 5,000 units EVERY 12 HOURS SUBQ 09/28/17 21:00 4/18/18 20:59 09/29/17 10:16 Insulin Aspart (NovoLOG) BEFORE MEALS AND HS SUBQ 09/28/17 21:00 10/27/17 20:59 09/29/17 12:19 Lansoprazole (Prevacid) 30 mg DAILY ORAL 09/29/17 09:00 10/28/17 17:59 09/29/17 10:13 Metoprolol Succinate (Toprol XL) 50 mg Q12HR ORAL 09/28/17 21:00 10/27/17 20:59 09/29/17 10:13 Morphine Sulfate (Morphine Sulfate) 2 mg Q4H PRN IVP Moderate Pain (Pain Scale 4-6) 09/28/17 19:15 10/04/17 19:14 Nitroglycerin (Ntg) 0.4 mg Q5MIN X 3 DOSES PRN SL Prn Chest Pain 09/28/17 19:00 10/27/17 19:29 Ondansetron HCl (Zofran) 4 mg Q6H PRN IVP Nausea & Vomiting 09/28/17 19:15 10/27/17 19:14 Polyethylene Glycol (Miralax) 17 gm DAILYPRN PRN ORAL Constipation 09/28/17 19:15 10/27/17 19:14 Sevelamer Carbonate (Renvela) 800 mg THREE TIMES A DAY ORAL 09/29/17 09:00 10/28/17 08:59 09/29/17 12:20 Sodium Chloride 1,000 ml @ 100 mls/hr Q10H IVLG 09/28/17 20:00 10/28/17 19:59 09/29/17 02:39 Temazepam (Restoril) 15 mg HSPRN PRN ORAL Insomnia 09/28/17 21:00 10/04/17 20:59 Vancomycin HCl (Vanco rx to dose) 1 ea DAILYPRN PRN MISC RX TO DOSE 09/28/17 19:15 10/28/17 19:14 Allergies: Coded Allergies: CEFEPIME (Verified Allergy, Intermediate, Rash, 01/23/13) ROS Limited/Unobtainable: Yes Subjective 62 YO M admitted with hematuria. S/P ultrasound guided cystostomy with suprapubic cath placement on 09/28/17.. Cover for Int Pierre-Dr Rosado Objective Last Vital Signs Date Time Temp Pulse Resp B/P (MAP) Pulse Ox O2 Delivery O2 Flow Rate FiO2 09/29/17 10:13 91 138/69 09/29/17 08:00 99.0 16 97 99.0 09/29/17 07:25 Room Air 09/28/17 18:30 3.0 General Appearance: WD/WN, no apparent distress, alert EENT: PERRL/EOMI, normal ENT inspection Neck: non-tender, normal alignment, supple, normal inspection Cardiovascular: normal peripheral pulses, normal rate, regular rhythm, no gallop/murmur, no JVD Respiratory/Chest: chest wall non-tender, lungs clear, normal breath sounds, no respiratory distress, no accessory muscle use Abdomen: normal bowel sounds, non tender, soft, no organomegaly, no mass Extremities: normal range of motion 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0) Monocytes (%) (Auto) % (1.0-10.0) Eosinophils (%) (Auto) % (0.0-3.0) Basophils (%) (Auto) % (0.0-2.0) Differential Total Cells Counted 100 Neutrophils % (Manual) 79 % (45-75) H Lymphocytes % (Manual) 17 % (20-45) L Monocytes % (Manual) 1 % (1-10) Eosinophils % (Manual) 3 % (0-3) Basophils % (Manual) 0 % (0-2) Band Neutrophils 0 % (0-8) Platelet Estimate Adequate Platelet Morphology Normal Hypochromasia 1+ Anisocytosis 1+ Prothrombin Time 12.2 SEC (9.30-11.50) H Prothromb Time International Ratio 1.2 (0.9-1.1) H Activated Partial Thromboplast Time 37 SEC (23-33) H Sodium Level 139 MMOL/L (136-145) Potassium Level 5.1 MMOL/L (3.5-5.1) Chloride Level 106 MMOL/L (98-107) Carbon Dioxide Level 22 MMOL/L (21-32) Anion Gap 11 mmol/L (5-15) Blood Urea Nitrogen 69 mg/dL (7-18) H Creatinine 4.8 MG/DL (0.55-1.30) H Estimat Glomerular Filtration Rate 12.3 mL/min (>60) Glucose Level 275 MG/DL (74-106) H Hemoglobin A1c 7.9 % (4.3-6.0) H Uric Acid 6.8 MG/DL (2.6-7.2) Calcium Level 8.0 MG/DL (8.5-10.1) L Phosphorus Level 3.7 MG/DL (2.5-4.9) Magnesium Level 2.1 MG/DL (1.8-2.4) Ferritin 622 NG/ML (8-388) H Total Bilirubin 0.5 MG/DL (0.2-1.0) Gamma Glutamyl Transpeptidase 9 U/L (5-85) Aspartate Amino Transf (AST/SGOT) 8 U/L (15-37) L Alanine Aminotransferase (ALT/SGPT) 13 U/L (12-78) Alkaline Phosphatase 73 U/L (46-116) Total Creatine Kinase 57 U/L (26-308) Troponin I 0.013 ng/mL (0.000-0.056) Pro-B-Type Natriuretic Peptide 956 pg/mL (0-125) H Total Protein 6.1 G/DL (6.4-8.2) L Albumin 2.3 G/DL (3.4-5.0) L Globulin 3.8 g/dL Albumin/Globulin Ratio 0.6 (1.0-2.7) L Triglycerides Level 64 MG/DL (30-150) Cholesterol Level 85 MG/DL (< 200) LDL Cholesterol 53 mg/dL (<100) HDL Cholesterol 29 MG/DL (40-60) L Cholesterol/HDL Ratio 2.9 (3.3-4.4) L Vitamin B12 Level 432 PG/ML (193-986) Folate 18.6 NG/ML (8.6-58.9) Thyroid Stimulating Hormone (TSH) 2.246 uiU/mL (0.358-3.740) Random Vancomycin Level 14.1 ug/mL Microbiology Date/Time Source Procedure Growth Status 09/27/17 10:58 Blood Blood Culture - Preliminary NO GROWTH AFTER 24 HOURS Resulted 09/27/17 10:58 Blood Blood Culture - Preliminary NO GROWTH AFTER 24 HOURS Resulted Intake and Output 09/28/17 09/29/17 19:00 07:00 Intake Total 480 ml 55 ml Output Total 200 ml 1400 ml Balance 280 ml -1345 ml Intake Oral 480 ml IV Total 55 ml Output Urine Total 200 ml 1400 ml Assessment/Plan Problem List: (1) Scrotal edema (2) Hyperparathyroidism (3) Hematuria (4) DM (diabetes mellitus) Assessment & Plan: Continue novolog sliding scale. (5) CKD (chronic kidney disease), stage III Assessment & Plan: See nephrology note (6) Renal osteodystrophy (7) Gastritis (8) Coronary heart disease (9) BPH (benign prostatic hyperplasia) (10) Urine retention Assessment & Plan: due to edema of scrotum. S/P ultrasound cystostomy with suprapubic cath 09/28/17-see urology note. Assessment/Plan Discharge planning: [facility] Sep 29, 2017 12:50
--- NOTE | 2017-09-29 15:22 | Nephrology Progress Note ---
Assessment/Plan Problem List: (1) Hydronephrosis (2) BPH (benign prostatic hypertrophy) (3) Nephropathy, diabetic (4) CKD (chronic kidney disease), stage III Assessment (1) CKD (chronic kidney disease), stage III, superimposed acute- Cr unchanged since last admit (2) Dehydration- Partly due to hyperglycemia (3) Hyperglycemia due to type 2 diabetes mellitus (4) BPH (benign prostatic hypertrophy) (5) Nephropathy, diabetic (6) History of simultaneous kidney and pancreas transplant (7) UTI (urinary tract infection) (8) Anemia of CKD Plan Has suprapubic cath avoid nephrotoxics BP and BS control- Flomax PO- monitor renal parameters Anemia [place] EPO SQ Subjective ROS Limited/Unobtainable: No Constitutional: Reports: malaise, weakness Objective Objective Last 24 Hour Vital Signs Date Time Temp Pulse Resp B/P (MAP) Pulse Ox O2 Delivery O2 Flow Rate FiO2 09/29/17 12:00 99.3 90 18 133/65 98 99.3 09/29/17 10:13 91 138/69 09/29/17 10:13 91 138/69 09/29/17 08:00 99.0 91 16 138/69 97 99.0 09/29/17 07:25 89 20 Room Air 09/29/17 04:00 97.7 83 18 134/55 95 97.7 09/29/17 00:40 98.1 79 18 129/59 99 Room Air 98.1 09/28/17 20:21 75 121/58 09/28/17 19:55 Room Air 09/28/17 19:53 98.2 75 18 121/58 100 98.2 09/28/17 18:30 98.3 76 18 124/60 100 Nasal Cannula 3.0 98.3 09/28/17 16:50 97.3 66 18 148/78 100 Nasal Cannula 3.0 97.3 09/28/17 16:50 97.7 80 18 100 Nasal Cannula 3.0 97.7 72 100 09/28/17 16:30 75 16 140/70 100 Nasal Cannula 3.0 09/28/17 16:15 73 18 142/78 100 Nasal Cannula 3.0 09/28/17 16:00 66 14 135/75 100 Nasal Cannula 3.0 09/28/17 15:50 97.5 68 15 144/77 100 Nasal Cannula 3.0 97.5 09/28/17 15:45 83 18 147/73 100 Nasal Cannula 3.0 09/28/17 15:35 81 20 151/75 100 Nasal Cannula 3.0 09/28/17 15:30 82 24 143/75 100 Nasal Cannula 3.0 09/28/17 15:25 83 24 146/78 100 Nasal Cannula 3.0 Intake and Output 09/28/17 09/29/17 19:00 07:00 Intake Total 480 ml 55 ml Output Total 200 ml 1400 ml Balance 280 ml -1345 ml Intake Oral 480 ml IV Total 55 ml Output Urine Total 200 ml 1400 ml Laboratory Tests 09/29/17 05:25: White Blood Count 6.2, Red Blood Count 2.05L, Hemoglobin 6.6*L, Hematocrit 19.7L , Mean Corpuscular Volume 96, Mean Corpuscular Hemoglobin 32.4H, Mean Corpuscular Hemoglobin Concent 33.8, Red Cell Distribution Width 15.8H, Platelet Count 212, Mean Platelet Volume 7.0, Neutrophils (%) (Auto) , Lymphocytes (%) (Auto) , Monocytes (%) (Auto) , Eosinophils (%) (Auto) , Basophils (%) (Auto) , Differential Total Cells Counted 100, Neutrophils % ( Manual) 79H, Lymphocytes % (Manual) 17L, Monocytes % (Manual) 1, Eosinophils % ( Manual) 3, Basophils % (Manual) 0, Band Neutrophils 0, Platelet Estimate Adequate, Platelet Morphology Normal, Hypochromasia 1+, Anisocytosis 1+, Prothrombin Time 12.2H, Prothromb Time International Ratio 1.2H, Activated Partial Thromboplast Time 37H, Sodium Level 139, Potassium Level 5.1, Chloride Level 106, Carbon Dioxide Level 22, Anion Gap 11, Blood Urea Nitrogen 69H, Creatinine 4.8H, Estimat Glomerular Filtration Rate 12.3, Glucose Level 275H, Hemoglobin A1c 7.9H, Uric Acid 6.8, Calcium Level 8.0L, Phosphorus Level 3.7, Magnesium Level 2.1, Ferritin 622H, Total Bilirubin 0.5, Gamma Glutamyl Transpeptidase 9, Aspartate Amino Transf (AST/SGOT) 8L, Alanine Aminotransferase (ALT/SGPT) 13, Alkaline Phosphatase 73, Total Creatine Kinase 57, Troponin I 0.013, Pro-B-Type Natriuretic Peptide 956H, Total Protein 6.1L, Albumin 2.3L, Globulin 3.8, Albumin/Globulin Ratio 0.6L, Triglycerides Level 64 , Cholesterol Level 85, LDL Cholesterol 53, HDL Cholesterol 29L, Cholesterol/ HDL Ratio 2.9L, Vitamin B12 Level 432, Folate 18.6, Thyroid Stimulating Hormone (TSH) 2.246, Random Vancomycin Level 14.1 Height (Feet): 5 Height (Inches): 9.00 Weight (Pounds): 190 General Appearance: no apparent distress Cardiovascular: tachycardia Respiratory/Chest: decreased breath sounds Abdomen: soft Genitourinary/Rectal: other - supra pubic BERT ALONSO Sep 29, 2017 15:21
[2017-09-29 16:00] VITALS: BP 156/80
--- NOTE | 2017-09-29 17:01 | Pulmonology Progress Note ---
Assessment/Plan Problems: (1) Hematuria (2) HTN (hypertension) (3) CAD (coronary artery disease) (4) Pulmonary HTN (5) Psychiatric disturbance (6) Anemia (7) Transplant recipient (8) Anemia in chronic kidney disease Assessment/Plan suprapubic catheter in place check electrolytes prbc time one now f/u by nephrology check cultures check h/h in am symptomatic treatment Subjective ROS Limited/Unobtainable: No Allergies: Coded Allergies: CEFEPIME (Verified Allergy, Intermediate, Rash, 01/23/13) Objective Last 24 Hour Vital Signs Date Time Temp Pulse Resp B/P (MAP) Pulse Ox O2 Delivery O2 Flow Rate FiO2 09/29/17 16:00 97.8 86 18 156/80 97 97.8 09/29/17 12:00 99.3 90 18 133/65 98 99.3 09/29/17 10:13 91 138/69 09/29/17 10:13 91 138/69 09/29/17 08:00 99.0 91 16 138/69 97 99.0 09/29/17 07:25 89 20 Room Air 09/29/17 04:00 97.7 83 18 134/55 95 97.7 09/29/17 00:40 98.1 79 18 129/59 99 Room Air 98.1 09/28/17 20:21 75 121/58 09/28/17 19:55 Room Air 09/28/17 19:53 98.2 75 18 121/58 100 98.2 09/28/17 18:30 98.3 76 18 124/60 100 Nasal Cannula 3.0 98.3 Intake and Output 09/28/17 09/29/17 19:00 07:00 Intake Total 480 ml 55 ml Output Total 200 ml 1400 ml Balance 280 ml -1345 ml Intake Oral 480 ml IV Total 55 ml Output Urine Total 200 ml 1400 ml Objective General Appearance: WD/WN, no apparent distress, alert Lines, tubes and drains: peripheral HEENT: normocephalic, atraumatic, anicteric, mucous membranes moist, PERRL Neck: non-tender, normal alignment, supple Respiratory/Chest: chest wall non-tender, lungs clear, normal breath sounds, no respiratory distress Cardiovascular/Chest: regular rhythm Abdomen: normal bowel sounds, non tender, no organomegaly, no mass, suprapubic catheter in place Genitourinary/Rectal: normal genital exam Extremities: normal range of motion, non-tender, normal inspection Skin Exam: normal pigmentation 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 Microbiology Date/Time Source Procedure Growth Status 09/27/17 10:58 Blood Blood Culture - Preliminary NO GROWTH AFTER 24 HOURS Resulted 09/27/17 10:58 Blood Blood Culture - Preliminary NO GROWTH AFTER 24 HOURS Resulted Laboratory Tests 09/29/17 05:25: White Blood Count 6.2, Red Blood Count 2.05L, Hemoglobin 6.6*L, Hematocrit 19.7L , Mean Corpuscular Volume 96, Mean Corpuscular Hemoglobin 32.4H, Mean Corpuscular Hemoglobin Concent 33.8, Red Cell Distribution Width 15.8H, Platelet Count 212, Mean Platelet Volume 7.0, Neutrophils (%) (Auto) , Lymphocytes (%) (Auto) , Monocytes (%) (Auto) , Eosinophils (%) (Auto) , Basophils (%) (Auto) , Differential Total Cells Counted 100, Neutrophils % ( Manual) 79H, Lymphocytes % (Manual) 17L, Monocytes % (Manual) 1, Eosinophils % ( Manual) 3, Basophils % (Manual) 0, Band Neutrophils 0, Platelet Estimate Adequate, Platelet Morphology Normal, Hypochromasia 1+, Anisocytosis 1+, Prothrombin Time 12.2H, Prothromb Time International Ratio 1.2H, Activated Partial Thromboplast Time 37H, Sodium Level 139, Potassium Level 5.1, Chloride Level 106, Carbon Dioxide Level 22, Anion Gap 11, Blood Urea Nitrogen 69H, Creatinine 4.8H, Estimat Glomerular Filtration Rate 12.3, Glucose Level 275H, Hemoglobin A1c 7.9H, Uric Acid 6.8, Calcium Level 8.0L, Phosphorus Level 3.7, Magnesium Level 2.1, Ferritin 622H, Total Bilirubin 0.5, Gamma Glutamyl Transpeptidase 9, Aspartate Amino Transf (AST/SGOT) 8L, Alanine Aminotransferase (ALT/SGPT) 13, Alkaline Phosphatase 73, Total Creatine Kinase 57, Troponin I 0.013, Pro-B-Type Natriuretic Peptide 956H, Total Protein 6.1L, Albumin 2.3L, Globulin 3.8, Albumin/Globulin Ratio 0.6L, Triglycerides Level 64 , Cholesterol Level 85, LDL Cholesterol 53, HDL Cholesterol 29L, Cholesterol/ HDL Ratio 2.9L, Vitamin B12 Level 432, Folate 18.6, Thyroid Stimulating Hormone (TSH) 2.246, Random Vancomycin Level 14.1 Current Medications Medications (Trade) Dose Ordered Sig/Dunia Route PRN Reason Start Time Stop Time Status Last Admin Dose Admin Acetaminophen (Tylenol) 650 mg Q4H PRN ORAL T>100.5 09/28/17 19:15 10/27/17 19:14 Albuterol/ Ipratropium (Albuterol/ Ipratropium) 3 ml Q4H PRN HHN Shortness of Breath 09/28/17 19:15 10/02/17 19:14 Amlodipine Besylate (Norvasc) 5 mg DAILY ORAL 09/29/17 09:00 10/28/17 08:59 09/29/17 10:13 Atorvastatin Calcium (Lipitor) 10 mg BEDTIME ORAL 09/28/17 21:00 10/27/17 20:59 09/28/17 20:22 Azathioprine (Imuran) 50 mg DAILY ORAL 09/29/17 09:00 10/28/17 08:59 09/29/17 10:18 Aztreonam 0.5 gm/ Sodium Chloride 55 ml @ 110 mls/hr Q8H IVPB 09/29/17 10:00 10/06/17 09:59 09/29/17 10:12 Chlorhexidine Gluconate (Eloisa-Hex 2%) 1 applic DAILY@2000 TOPIC 09/28/17 22:30 10/28/17 22:29 09/28/17 22:49 Dextrose (Dextrose 50%) STAT PRN IV Hypoglycemia 09/28/17 19:15 10/27/17 19:14 Duloxetine HCl (Cymbalta) 30 mg DAILY ORAL 09/29/17 09:00 10/28/17 08:59 09/29/17 10:13 Epoetin Jose (Procrit (for non ESRD use)) 10,000 units MON-WED-FRI SUBQ 09/29/17 21:00 10/29/17 20:59 Heparin Sodium (Porcine) (Heparin 5000 units/ml) 5,000 units EVERY 12 HOURS SUBQ 09/28/17 21:00 10/27/17 20:59 09/29/17 10:16 Insulin Aspart (NovoLOG) BEFORE MEALS AND HS SUBQ 09/28/17 21:00 10/27/17 20:59 09/29/17 16:35 Lansoprazole (Prevacid) 30 mg DAILY ORAL 09/29/17 09:00 10/28/17 17:59 09/29/17 10:13 Metoprolol Succinate (Toprol XL) 50 mg Q12HR ORAL 09/28/17 21:00 10/27/17 20:59 09/29/17 10:13 Morphine Sulfate (Morphine Sulfate) 2 mg Q4H PRN IVP Moderate Pain (Pain Scale 4-6) 09/28/17 19:15 10/04/17 19:14 Nitroglycerin (Ntg) 0.4 mg Q5MIN X 3 DOSES PRN SL Prn Chest Pain 09/28/17 19:00 10/27/17 19:29 Ondansetron HCl (Zofran) 4 mg Q6H PRN IVP Nausea & Vomiting 09/28/17 19:15 10/27/17 19:14 Polyethylene Glycol (Miralax) 17 gm DAILYPRN PRN ORAL Constipation 09/28/17 19:15 10/27/17 19:14 Sevelamer Carbonate (Renvela) 800 mg THREE TIMES A DAY ORAL 09/29/17 09:00 10/28/17 08:59 09/29/17 12:20 Sodium Chloride 1,000 ml @ 100 mls/hr Q10H IVLG 09/28/17 20:00 10/28/17 19:59 09/29/17 02:39 Temazepam (Restoril) 15 mg HSPRN PRN ORAL Insomnia 09/28/17 21:00 10/04/17 20:59 Vancomycin HCl (Vanco rx to dose) 1 ea DAILYPRN PRN MISC RX TO DOSE 09/28/17 19:15 10/28/17 19:14 Esdras Delgado MD Sep 29, 2017 17:01
--- NOTE | 2017-09-29 17:31 | Infectious Diseases Prog Note ---
Assessment/Plan Assessment/Plan -Abx: IV Vancomcyin 09/27- Aztreonam 09/27- Ancef x1 09/28 Levaquin 09/27-09/28 Assessment: Hematuria Penile swelling w/ penile extensive hemorrhage and surrounding cellulitis; improving -s/p suprapubic cystostomy 09/28 -CT abd/p: Evidence of extensive hemorrhage around the penile shaft, extending into the adjacent subcutaneous fat. Marked edema and/or ecchymosis of the scrotal wall also demonstrated. There is also a small right hydrocele. Etiology of the hemorrhage uncertain, urethral injury a possibility. Per discussion with referring physician, there is evidence of cellulitis as well as urinary bleeding ; findings are concordant with this. There is no soft tissue gas to suggest infection with gas-forming organism. Markedly distended urinary bladder, which is less distended on the second acquisition. This probably indicates interim voiding with a considerable postvoidresidual. There is evidence of a large bladder diverticulum which may be in part postsurgical. Left iliac fossa transplant kidney hydronephrosis, which is somewhat but not completely improved on the second acquisition with the lower bladder volume. Presumably related to the bladder distention as no other obstructing lesion is demonstrated. Extensive perinephric edema, possibly related to the above. Possibility of superimposed nephritis should also be considered. Cholelithiasis, also previously reported. Evidence of prior abdominal wall hernia mesh repair -Bcx NTD Mild pyuria -ucx not sent afebrile, no leukocytosis CKD (previously on HD pre-transplant) s/p renal and pancreas Transplant ~10 yrs ago Recent Persistent Staph Epi bacteremia Jul 2017- AMY with no vegetations, likely from PICC line infection; s/p Rx -s/p PICC removal 08/09; cath cx <1+ CONS -08/06 Bcx 10/13 Staph epi/MRSE (labeld peripheral), Bcx 08/07 Neg 08/08 (line) 2/2 MRSE; 08/09 07/15 S.epi (however line was still in place); Bcx 08/11/ S. epi; 2 Neg -TTE: Thickened mitral valve leaflets with normal excursion. Mild mitral annulus and aortic root calcification. Pulmonic valve is well visualized. Normal tricuspid valve structure. No echodensity is seen on valves (vegetation) -AMY 08/19: no vegetations History of enterococcus bacteremia back in May. -07/15 E fecalis (Amp R, Vanco S) History of suicidal attempts in the past. History of myocardial infarction. History of anemia. History of colon polyps. Plan: -Continue IV vancomycin and Aztreonam #09/18- for scrotal cellulitis; upon discharge can transition to PO Doxycycline 100mg bid and Levaquin 500mg q 48h -09/10 SP Daptomycin #34 -f/u cx -Monitor CBC,/BMP, temperatures -Prior discharge, PICC line to be remove Thank you for this consultation. Will continue to follow along with you. Discussed with RN Subjective Allergies: Coded Allergies: CEFEPIME (Verified Allergy, Intermediate, Rash, 01/23/13) Subjective afebrile no leukocytosis Bcx NTD Objective Vital Signs Last 24 Hour Vital Signs Date Time Temp Pulse Resp B/P (MAP) Pulse Ox O2 Delivery O2 Flow Rate FiO2 09/29/17 16:00 97.8 86 18 156/80 97 97.8 09/29/17 12:00 99.3 90 18 133/65 98 99.3 09/29/17 10:13 91 138/69 09/29/17 10:13 91 138/69 09/29/17 08:00 99.0 91 16 138/69 97 99.0 09/29/17 07:25 89 20 Room Air 09/29/17 04:00 97.7 83 18 134/55 95 97.7 09/29/17 00:40 98.1 79 18 129/59 99 Room Air 98.1 09/28/17 20:21 75 121/58 09/28/17 19:55 Room Air 09/28/17 19:53 98.2 75 18 121/58 100 98.2 09/28/17 18:30 98.3 76 18 124/60 100 Nasal Cannula 3.0 98.3 Height (Feet): 5 Height (Inches): 9.00 Weight (Pounds): 190 Objective General Appearance: WD/WN Lines, tubes and drains: peripheral, endotracheal tube HEENT: normocephalic, atraumatic, mucous membranes moist, PERRL Neck: non-tender, normal inspection Respiratory/Chest: chest wall non-tender, normal breath sounds Cardiovascular/Chest: normal peripheral pulses Abdomen: normal bowel sounds Genitourinary/Rectal: genital area (penis,s crotum) -+ swelling, TTP, warmth; suprabpubic cath in place Skin Exam: normal pigmentation 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 Microbiology Date/Time Source Procedure Growth Status 09/27/17 10:58 Blood Blood Culture - Preliminary NO GROWTH AFTER 24 HOURS Resulted 09/27/17 10:58 Blood Blood Culture - Preliminary NO GROWTH AFTER 24 HOURS Resulted Laboratory Tests Test 09/29/17 05:25 White Blood Count 6.2 K/UL (4.8-10.8) Red Blood Count 2.05 M/UL (4.70-6.10) L Hemoglobin 6.6 G/DL (14.2-18.0) *L Hematocrit 19.7 % (42.0-52.0) L Mean Corpuscular Volume 96 FL (80-99) Mean Corpuscular Hemoglobin 32.4 PG (27.0-31.0) H Mean Corpuscular Hemoglobin Concent 33.8 G/DL (32.0-36.0) Red Cell Distribution Width 15.8 % (11.6-14.8) H Platelet Count 212 K/UL (150-450) Mean Platelet Volume 7.0 FL (6.5-10.1) Neutrophils (%) (Auto) % (45.0-75.0) Lymphocytes (%) (Auto) % (20.0-45.0) Monocytes (%) (Auto) % (1.0-10.0) Eosinophils (%) (Auto) % (0.0-3.0) Basophils (%) (Auto) % (0.0-2.0) Differential Total Cells Counted 100 Neutrophils % (Manual) 79 % (45-75) H Lymphocytes % (Manual) 17 % (20-45) L Monocytes % (Manual) 1 % (1-10) Eosinophils % (Manual) 3 % (0-3) Basophils % (Manual) 0 % (0-2) Band Neutrophils 0 % (0-8) Platelet Estimate Adequate Platelet Morphology Normal Hypochromasia 1+ Anisocytosis 1+ Prothrombin Time 12.2 SEC (9.30-11.50) H Prothromb Time International Ratio 1.2 (0.9-1.1) H Activated Partial Thromboplast Time 37 SEC (23-33) H Sodium Level 139 MMOL/L (136-145) Potassium Level 5.1 MMOL/L (3.5-5.1) Chloride Level 106 MMOL/L (98-107) Carbon Dioxide Level 22 MMOL/L (21-32) Anion Gap 11 mmol/L (5-15) Blood Urea Nitrogen 69 mg/dL (7-18) H Creatinine 4.8 MG/DL (0.55-1.30) H Estimat Glomerular Filtration Rate 12.3 mL/min (>60) Glucose Level 275 MG/DL (74-106) H Hemoglobin A1c 7.9 % (4.3-6.0) H Uric Acid 6.8 MG/DL (2.6-7.2) Calcium Level 8.0 MG/DL (8.5-10.1) L Phosphorus Level 3.7 MG/DL (2.5-4.9) Magnesium Level 2.1 MG/DL (1.8-2.4) Ferritin 622 NG/ML (8-388) H Total Bilirubin 0.5 MG/DL (0.2-1.0) Gamma Glutamyl Transpeptidase 9 U/L (5-85) Aspartate Amino Transf (AST/SGOT) 8 U/L (15-37) L Alanine Aminotransferase (ALT/SGPT) 13 U/L (12-78) Alkaline Phosphatase 73 U/L (46-116) Total Creatine Kinase 57 U/L (26-308) Troponin I 0.013 ng/mL (0.000-0.056) Pro-B-Type Natriuretic Peptide 956 pg/mL (0-125) H Total Protein 6.1 G/DL (6.4-8.2) L Albumin 2.3 G/DL (3.4-5.0) L Globulin 3.8 g/dL Albumin/Globulin Ratio 0.6 (1.0-2.7) L Triglycerides Level 64 MG/DL (30-150) Cholesterol Level 85 MG/DL (< 200) LDL Cholesterol 53 mg/dL (<100) HDL Cholesterol 29 MG/DL (40-60) L Cholesterol/HDL Ratio 2.9 (3.3-4.4) L Vitamin B12 Level 432 PG/ML (193-986) Folate 18.6 NG/ML (8.6-58.9) Thyroid Stimulating Hormone (TSH) 2.246 uiU/mL (0.358-3.740) Random Vancomycin Level 14.1 ug/mL Current Medications Medications (Trade) Dose Ordered Sig/Dunia Route PRN Reason Start Time Stop Time Status Last Admin Dose Admin Acetaminophen (Tylenol) 650 mg Q4H PRN ORAL T>100.5 09/28/17 19:15 10/27/17 19:14 Albuterol/ Ipratropium (Albuterol/ Ipratropium) 3 ml Q4H PRN HHN Shortness of Breath 09/28/17 19:15 10/02/17 19:14 Amlodipine Besylate (Norvasc) 5 mg DAILY ORAL 09/29/17 09:00 10/28/17 08:59 09/29/17 10:13 Atorvastatin Calcium (Lipitor) 10 mg BEDTIME ORAL 09/28/17 21:00 10/27/17 20:59 09/28/17 20:22 Azathioprine (Imuran) 50 mg DAILY ORAL 09/29/17 09:00 10/28/17 08:59 09/29/17 10:18 Aztreonam 0.5 gm/ Sodium Chloride 55 ml @ 110 mls/hr Q8H IVPB 09/29/17 10:00 10/06/17 09:59 09/29/17 10:12 Chlorhexidine Gluconate (Eloisa-Hex 2%) 1 applic DAILY@2000 TOPIC 09/28/17 22:30 10/28/17 22:29 09/28/17 22:49 Dextrose (Dextrose 50%) STAT PRN IV Hypoglycemia 09/28/17 19:15 10/27/17 19:14 Duloxetine HCl (Cymbalta) 30 mg DAILY ORAL 09/29/17 09:00 10/28/17 08:59 09/29/17 10:13 Epoetin Jose (Procrit (for non ESRD use)) 10,000 units MON-WED-FRI SUBQ 09/29/17 21:00 10/29/17 20:59 Heparin Sodium (Porcine) (Heparin 5000 units/ml) 5,000 units EVERY 12 HOURS SUBQ 09/28/17 21:00 10/27/17 20:59 09/29/17 10:16 Insulin Aspart (NovoLOG) BEFORE MEALS AND HS SUBQ 09/28/17 21:00 10/27/17 20:59 09/29/17 16:35 Lansoprazole (Prevacid) 30 mg DAILY ORAL 09/29/17 09:00 10/28/17 17:59 09/29/17 10:13 Metoprolol Succinate (Toprol XL) 50 mg Q12HR ORAL 09/28/17 21:00 10/27/17 20:59 09/29/17 10:13 Morphine Sulfate (Morphine Sulfate) 2 mg Q4H PRN IVP Moderate Pain (Pain Scale 4-6) 09/28/17 19:15 10/04/17 19:14 Nitroglycerin (Ntg) 0.4 mg Q5MIN X 3 DOSES PRN SL Prn Chest Pain 09/28/17 19:00 10/27/17 19:29 Ondansetron HCl (Zofran) 4 mg Q6H PRN IVP Nausea & Vomiting 09/28/17 19:15 10/27/17 19:14 Polyethylene Glycol (Miralax) 17 gm DAILYPRN PRN ORAL Constipation 09/28/17 19:15 10/27/17 19:14 Sevelamer Carbonate (Renvela) 800 mg THREE TIMES A DAY ORAL 09/29/17 09:00 10/28/17 08:59 09/29/17 12:20 Sodium Chloride 1,000 ml @ 100 mls/hr Q10H IVLG 09/28/17 20:00 10/28/17 19:59 09/29/17 02:39 Temazepam (Restoril) 15 mg HSPRN PRN ORAL Insomnia 09/28/17 21:00 10/04/17 20:59 Vancomycin HCl (Vanco rx to dose) 1 ea DAILYPRN PRN MISC RX TO DOSE 09/28/17 19:15 10/28/17 19:14 Monique Read M.D. Sep 29, 2017 17:31
[2017-09-29 20:00] VITALS: BP 133/62
[2017-09-29] MEDS ORDERED: Epogen (for non ESRD use) SUBQ SCH (21:00)
[2017-09-29] MEDS: Dyna-Hex 2% Top Sol 2oz TOPIC SCH (21:09)
[2017-09-29] MEDS: Epogen (for non ESRD use) SUBQ SCH (21:09)
--- NOTE | 2017-09-29 22:51 | General Progress Note ---
Assessment/Plan Status: stable Assessment/Plan mdd cymbalta 30mg qam provided ro/st Subjective Date patient seen: Sep 29, 2017 Neurologic/Psychiatric: Reports: anxiety, depressed, emotional problems Allergies: Coded Allergies: CEFEPIME (Verified Allergy, Intermediate, Rash, 01/23/13) Objective Last 24 Hour Vital Signs Date Time Temp Pulse Resp B/P (MAP) Pulse Ox O2 Delivery O2 Flow Rate FiO2 09/29/17 21:09 82 133/62 09/29/17 20:00 Room Air 09/29/17 20:00 98.5 82 18 133/62 97 98.5 09/29/17 19:52 78 18 Room Air 3.0 09/29/17 16:00 97.8 86 18 156/80 97 97.8 09/29/17 12:00 99.3 90 18 133/65 98 99.3 09/29/17 10:13 91 138/69 09/29/17 10:13 91 138/69 09/29/17 08:00 99.0 91 16 138/69 97 99.0 09/29/17 07:25 89 20 Room Air 09/29/17 04:00 97.7 83 18 134/55 95 97.7 09/29/17 00:40 98.1 79 18 129/59 99 Room Air 98.1 Intake and Output 09/28/17 09/29/17 19:00 07:00 Intake Total 480 ml 55 ml Output Total 200 ml 1400 ml Balance 280 ml -1345 ml Intake Oral 480 ml IV Total 55 ml Output Urine Total 200 ml 1400 ml Laboratory Tests 09/29/17 05:25: White Blood Count 6.2, Red Blood Count 2.05L, Hemoglobin 6.6*L, Hematocrit 19.7L , Mean Corpuscular Volume 96, Mean Corpuscular Hemoglobin 32.4H, Mean Corpuscular Hemoglobin Concent 33.8, Red Cell Distribution Width 15.8H, Platelet Count 212, Mean Platelet Volume 7.0, Neutrophils (%) (Auto) , Lymphocytes (%) (Auto) , Monocytes (%) (Auto) , Eosinophils (%) (Auto) , Basophils (%) (Auto) , Differential Total Cells Counted 100, Neutrophils % ( Manual) 79H, Lymphocytes % (Manual) 17L, Monocytes % (Manual) 1, Eosinophils % ( Manual) 3, Basophils % (Manual) 0, Band Neutrophils 0, Platelet Estimate Adequate, Platelet Morphology Normal, Hypochromasia 1+, Anisocytosis 1+, Prothrombin Time 12.2H, Prothromb Time International Ratio 1.2H, Activated Partial Thromboplast Time 37H, Sodium Level 139, Potassium Level 5.1, Chloride Level 106, Carbon Dioxide Level 22, Anion Gap 11, Blood Urea Nitrogen 69H, Creatinine 4.8H, Estimat Glomerular Filtration Rate 12.3, Glucose Level 275H, Hemoglobin A1c 7.9H, Uric Acid 6.8, Calcium Level 8.0L, Phosphorus Level 3.7, Magnesium Level 2.1, Ferritin 622H, Total Bilirubin 0.5, Gamma Glutamyl Transpeptidase 9, Aspartate Amino Transf (AST/SGOT) 8L, Alanine Aminotransferase (ALT/SGPT) 13, Alkaline Phosphatase 73, Total Creatine Kinase 57, Troponin I 0.013, Pro-B-Type Natriuretic Peptide 956H, Total Protein 6.1L, Albumin 2.3L, Globulin 3.8, Albumin/Globulin Ratio 0.6L, Triglycerides Level 64 , Cholesterol Level 85, LDL Cholesterol 53, HDL Cholesterol 29L, Cholesterol/ HDL Ratio 2.9L, Vitamin B12 Level 432, Folate 18.6, Thyroid Stimulating Hormone (TSH) 2.246, Random Vancomycin Level 14.1 Height (Feet): 5 Height (Inches): 9.00 Weight (Pounds): 190 General Appearance: no apparent distress, alert Neurologic: oriented x 3, responsive, depressed affect Fatmata Lu M.D. Sep 29, 2017 22:51
[2017-09-29] MEDS ORDERED: NS 275ml ONE (22:53)
[2017-09-29] MEDS ORDERED: Tubing IV Secondary IV ONE (22:53)
[2017-09-29] MEDS ORDERED: Tubing IV Blood Pump IV ONE (22:53)
[2017-09-30] VITALS: BP 119/55
[2017-09-30] MEDS: Aztreonam Inj 0.5 GM in NS 55 ML IVPB SCH ×3 (02:13→17:23)
[2017-09-30 04:00] VITALS: BP 139/64
[2017-09-30] MEDS: NovoLOG Insulin Flexpen SUBQ SCH ×4 (06:16→21:35)
[2017-09-30 07:31] LABS: BASOPHILS % (AUTO) 0.6 % (0.0-2.0); EOSINOPHILS % (AUTO) 3.4 % (0.0-3.0); HEMATOCRIT 26.6 % (42.0-52.0); HEMOGLOBIN 8.8 G/DL (14.2-18.0); LYMPHOCYTES % (AUTO) 18.1 % (20.0-45.0); MEAN CORPUSCULAR VOLUME 95 FL (80-99); MONOCYTES % (AUTO) 8.3 % (1.0-10.0); NEUTROPHILS % (AUTO) 69.6 % (45.0-75.0); PLATELET COUNT 187 K/UL (150-450); WHITE BLOOD COUNT 7.6 K/UL (4.8-10.8)
[2017-09-30 07:44] LABS: ANION GAP 12 mmol/L (5-15); BLOOD UREA NITROGEN 66 mg/dL (7-18); CALCIUM 8.2 MG/DL (8.5-10.1); CARBON DIOXIDE 20 MMOL/L (21-32); CHLORIDE 107 MMOL/L (98-107); CREATININE 4.6 MG/DL (0.55-1.30); POTASSIUM 4.9 MMOL/L (3.5-5.1); SODIUM 139 MMOL/L (136-145)
[2017-09-30 08:00] VITALS: BP 121/56
[2017-09-30 08:10] LABS: ALANINE AMINOTRANSFERASE 10 U/L (12-78); ALBUMIN 2.1 G/DL (3.4-5.0); ALKALINE PHOSPHATASE 75 U/L (46-116); ASPARTATE AMINO TRANSFERASE 11 U/L (15-37); BILIRUBIN,DIRECT 0.1 MG/DL (0.0-0.3); BILIRUBIN,TOTAL 0.5 MG/DL (0.2-1.0); PHOSPHORUS 3.2 MG/DL (2.5-4.9)
[2017-09-30] MEDS: Metoprolol Succinate XL 50mg tab ORAL SCH ×2 (09:00→21:36)
[2017-09-30] MEDS: Heparin 5000 units/ml inj SUBQ SCH ×2 (09:00→21:00)
[2017-09-30] MEDS: DULoxetine 30mg cap ORAL SCH (09:26)
[2017-09-30] MEDS: azaTHIOprine 50 MG TAB ORAL SCH (09:27)
[2017-09-30 12:00] VITALS: BP 155/77
[2017-09-30 16:00] VITALS: BP 125/53
--- NOTE | 2017-09-30 16:15 | Infectious Diseases Prog Note ---
Assessment/Plan Assessment/Plan -Abx: IV Vancomcyin 09/27- Aztreonam 09/27- Ancef x1 09/28 Levaquin 09/27-09/28 Assessment: Hematuria Penile swelling w/ penile extensive hemorrhage and surrounding cellulitis; improving -s/p suprapubic cystostomy 09/28 -CT abd/p: Evidence of extensive hemorrhage around the penile shaft, extending into the adjacent subcutaneous fat. Marked edema and/or ecchymosis of the scrotal wall also demonstrated. There is also a small right hydrocele. Etiology of the hemorrhage uncertain, urethral injury a possibility. Per discussion with referring physician, there is evidence of cellulitis as well as urinary bleeding ; findings are concordant with this. There is no soft tissue gas to suggest infection with gas-forming organism. Markedly distended urinary bladder, which is less distended on the second acquisition. This probably indicates interim voiding with a considerable postvoidresidual. There is evidence of a large bladder diverticulum which may be in part postsurgical. Left iliac fossa transplant kidney hydronephrosis, which is somewhat but not completely improved on the second acquisition with the lower bladder volume. Presumably related to the bladder distention as no other obstructing lesion is demonstrated. Extensive perinephric edema, possibly related to the above. Possibility of superimposed nephritis should also be considered. Cholelithiasis, also previously reported. Evidence of prior abdominal wall hernia mesh repair -Bcx NTD Mild pyuria -ucx not sent afebrile, no leukocytosis CKD (previously on HD pre-transplant) s/p renal and pancreas Transplant ~10 yrs ago Recent Persistent Staph Epi bacteremia Jul 2017- AMY with no vegetations, likely from PICC line infection; s/p Rx -s/p PICC removal 08/09; cath cx <1+ CONS -08/06 Bcx 10/13 Staph epi/MRSE (labeld peripheral), Bcx 08/07 Neg 08/08 (line) 2/2 MRSE; 08/09 07/15 S.epi (however line was still in place); Bcx 08/11/ S. epi; 2 Neg -TTE: Thickened mitral valve leaflets with normal excursion. Mild mitral annulus and aortic root calcification. Pulmonic valve is well visualized. Normal tricuspid valve structure. No echodensity is seen on valves (vegetation) -AMY 08/19: no vegetations History of enterococcus bacteremia back in May. -07/15 E fecalis (Amp R, Vanco S) History of suicidal attempts in the past. History of myocardial infarction. History of anemia. History of colon polyps. Plan: -Continue IV vancomycin and Aztreonam #10/19- for scrotal cellulitis; upon discharge can transition to PO Doxycycline 100mg bid and Levaquin 500mg q 48h -09/10 SP Daptomycin #34 -f/u cx -Monitor CBC,/BMP, temperatures -Prior discharge, PICC line to be remove Thank you for this consultation. Will continue to follow along with you. Discussed with RN Subjective Allergies: Coded Allergies: CEFEPIME (Verified Allergy, Intermediate, Rash, 01/23/13) Subjective afebrile no leukocytosis Bcx NTD Objective Vital Signs Last 24 Hour Vital Signs Date Time Temp Pulse Resp B/P (MAP) Pulse Ox O2 Delivery O2 Flow Rate FiO2 09/30/17 12:00 98.2 75 19 155/77 98 98.2 09/30/17 09:00 69 121/56 09/30/17 09:00 69 121/56 09/30/17 08:00 98.1 69 17 121/56 96 98.1 09/30/17 07:50 70 18 Room Air 21 09/30/17 04:00 98.5 76 18 139/64 93 98.5 09/30/17 04:00 Room Air 09/30/17 00:00 Room Air 09/30/17 00:00 99.3 81 18 119/55 96 99.3 09/29/17 21:09 82 133/62 09/29/17 20:00 Room Air 09/29/17 20:00 98.5 82 18 133/62 97 98.5 09/29/17 19:52 78 18 Room Air 3.0 Height (Feet): 5 Height (Inches): 9.00 Weight (Pounds): 190 Objective General Appearance: WD/WN Lines, tubes and drains: peripheral, endotracheal tube HEENT: normocephalic, atraumatic, mucous membranes moist, PERRL Neck: non-tender, normal inspection Respiratory/Chest: chest wall non-tender, normal breath sounds Cardiovascular/Chest: normal peripheral pulses Abdomen: normal bowel sounds Genitourinary/Rectal: genital area (penis,s crotum) -+ swelling, TTP, warmth; suprabpubic cath in place; celluitis and TTP improving Skin Exam: normal pigmentation 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 Laboratory Tests Test 09/30/17 05:05 White Blood Count 7.6 K/UL (4.8-10.8) Red Blood Count 2.80 M/UL (4.70-6.10) L Hemoglobin 8.8 G/DL (14.2-18.0) #L Hematocrit 26.6 % (42.0-52.0) #L Mean Corpuscular Volume 95 FL (80-99) Mean Corpuscular Hemoglobin 31.2 PG (27.0-31.0) H Mean Corpuscular Hemoglobin Concent 33.0 G/DL (32.0-36.0) Red Cell Distribution Width 15.0 % (11.6-14.8) H Platelet Count 187 K/UL (150-450) Mean Platelet Volume 6.4 FL (6.5-10.1) L Neutrophils (%) (Auto) 69.6 % (45.0-75.0) Lymphocytes (%) (Auto) 18.1 % (20.0-45.0) L Monocytes (%) (Auto) 8.3 % (1.0-10.0) Eosinophils (%) (Auto) 3.4 % (0.0-3.0) H Basophils (%) (Auto) 0.6 % (0.0-2.0) Sodium Level 139 MMOL/L (136-145) Potassium Level 4.9 MMOL/L (3.5-5.1) Chloride Level 107 MMOL/L (98-107) Carbon Dioxide Level 20 MMOL/L (21-32) L Anion Gap 12 mmol/L (5-15) Blood Urea Nitrogen 66 mg/dL (7-18) H Creatinine 4.6 MG/DL (0.55-1.30) H Estimat Glomerular Filtration Rate 13.0 mL/min (>60) Glucose Level 279 MG/DL (74-106) H Calcium Level 8.2 MG/DL (8.5-10.1) L Phosphorus Level 3.2 MG/DL (2.5-4.9) Magnesium Level 1.9 MG/DL (1.8-2.4) Total Bilirubin 0.5 MG/DL (0.2-1.0) Direct Bilirubin 0.1 MG/DL (0.0-0.3) Aspartate Amino Transf (AST/SGOT) 11 U/L (15-37) L Alanine Aminotransferase (ALT/SGPT) 10 U/L (12-78) L Alkaline Phosphatase 75 U/L (46-116) Total Protein 6.2 G/DL (6.4-8.2) L Albumin 2.1 G/DL (3.4-5.0) L Current Medications Medications (Trade) Dose Ordered Sig/Dunia Route PRN Reason Start Time Stop Time Status Last Admin Dose Admin Acetaminophen (Tylenol) 650 mg Q4H PRN ORAL T>100.5 09/28/17 19:15 10/27/17 19:14 Albuterol/ Ipratropium (Albuterol/ Ipratropium) 3 ml Q4H PRN HHN Shortness of Breath 09/28/17 19:15 10/02/17 19:14 Amlodipine Besylate (Norvasc) 5 mg DAILY ORAL 09/29/17 09:00 10/28/17 08:59 09/29/17 10:13 Atorvastatin Calcium (Lipitor) 10 mg BEDTIME ORAL 09/28/17 21:00 10/27/17 20:59 09/29/17 21:09 Azathioprine (Imuran) 50 mg DAILY ORAL 09/29/17 09:00 10/28/17 08:59 09/30/17 09:27 Aztreonam 0.5 gm/ Sodium Chloride 55 ml @ 110 mls/hr Q8H IVPB 09/29/17 10:00 10/06/17 09:59 09/30/17 10:19 Chlorhexidine Gluconate (Eloisa-Hex 2%) 1 applic DAILY@2000 TOPIC 09/28/17 22:30 10/28/17 22:29 09/29/17 21:09 Dextrose (Dextrose 50%) STAT PRN IV Hypoglycemia 09/28/17 19:15 10/27/17 19:14 Duloxetine HCl (Cymbalta) 30 mg DAILY ORAL 09/29/17 09:00 10/28/17 08:59 09/30/17 09:26 Epoetin Jose (Procrit (for non ESRD use)) 10,000 units MON-WED-FRI SUBQ 09/29/17 21:00 10/29/17 20:59 09/29/17 21:09 Heparin Sodium (Porcine) (Heparin 5000 units/ml) 5,000 units EVERY 12 HOURS SUBQ 09/28/17 21:00 10/27/17 20:59 Insulin Aspart (NovoLOG) BEFORE MEALS AND HS SUBQ 09/28/17 21:00 10/27/17 20:59 09/30/17 11:32 Lansoprazole (Prevacid) 30 mg DAILY ORAL 09/29/17 09:00 10/28/17 17:59 09/30/17 09:27 Metoprolol Succinate (Toprol XL) 50 mg Q12HR ORAL 09/28/17 21:00 10/27/17 20:59 09/29/17 21:09 Morphine Sulfate (Morphine Sulfate) 2 mg Q4H PRN IVP Moderate Pain (Pain Scale 4-6) 09/28/17 19:15 10/04/17 19:14 Nitroglycerin (Ntg) 0.4 mg Q5MIN X 3 DOSES PRN SL Prn Chest Pain 09/28/17 19:00 10/27/17 19:29 Ondansetron HCl (Zofran) 4 mg Q6H PRN IVP Nausea & Vomiting 09/28/17 19:15 10/27/17 19:14 Polyethylene Glycol (Miralax) 17 gm DAILYPRN PRN ORAL Constipation 09/28/17 19:15 10/27/17 19:14 Sevelamer Carbonate (Renvela) 800 mg THREE TIMES A DAY ORAL 09/29/17 09:00 10/28/17 08:59 09/30/17 09:27 Sodium Chloride 1,000 ml @ 100 mls/hr Q10H IVLG 09/28/17 20:00 10/28/17 19:59 09/30/17 06:15 Temazepam (Restoril) 15 mg HSPRN PRN ORAL Insomnia 09/28/17 21:00 10/04/17 20:59 Vancomycin HCl (Vanco rx to dose) 1 ea DAILYPRN PRN MISC RX TO DOSE 09/28/17 19:15 10/28/17 19:14 Monique Read M.D. Sep 30, 2017 16:15
--- NOTE | 2017-09-30 18:09 | Internal Med Progress Note ---
Subjective Date of Service: Sep 30, 2017 Physician Name Maher,Dee Attending Physician Christopher Rosado MD Current Medications Medications (Trade) Dose Ordered Sig/Dunia Route PRN Reason Start Time Stop Time Status Last Admin Dose Admin Acetaminophen (Tylenol) 650 mg Q4H PRN ORAL T>100.5 09/28/17 19:15 10/27/17 19:14 Albuterol/ Ipratropium (Albuterol/ Ipratropium) 3 ml Q4H PRN HHN Shortness of Breath 09/28/17 19:15 10/02/17 19:14 Amlodipine Besylate (Norvasc) 5 mg DAILY ORAL 09/29/17 09:00 10/28/17 08:59 09/29/17 10:13 Atorvastatin Calcium (Lipitor) 10 mg BEDTIME ORAL 09/28/17 21:00 10/27/17 20:59 09/29/17 21:09 Azathioprine (Imuran) 50 mg DAILY ORAL 09/29/17 09:00 10/28/17 08:59 09/30/17 09:27 Aztreonam 0.5 gm/ Sodium Chloride 55 ml @ 110 mls/hr Q8H IVPB 09/29/17 10:00 10/06/17 09:59 09/30/17 17:23 Chlorhexidine Gluconate (Eloisa-Hex 2%) 1 applic DAILY@2000 TOPIC 09/28/17 22:30 10/28/17 22:29 09/29/17 21:09 Dextrose (Dextrose 50%) STAT PRN IV Hypoglycemia 09/28/17 19:15 10/27/17 19:14 Duloxetine HCl (Cymbalta) 30 mg DAILY ORAL 09/29/17 09:00 10/28/17 08:59 09/30/17 09:26 Epoetin Jose (Procrit (for non ESRD use)) 10,000 units MON-WED-FRI SUBQ 09/29/17 21:00 10/29/17 20:59 09/29/17 21:09 Heparin Sodium (Porcine) (Heparin 5000 units/ml) 5,000 units EVERY 12 HOURS SUBQ 09/28/17 21:00 10/27/17 20:59 Insulin Aspart (NovoLOG) BEFORE MEALS AND HS SUBQ 09/28/17 21:00 4/18/18 20:59 09/30/17 16:24 Lansoprazole (Prevacid) 30 mg DAILY ORAL 09/29/17 09:00 10/28/17 17:59 09/30/17 09:27 Metoprolol Succinate (Toprol XL) 50 mg Q12HR ORAL 09/28/17 21:00 10/27/17 20:59 09/29/17 21:09 Morphine Sulfate (Morphine Sulfate) 2 mg Q4H PRN IVP Moderate Pain (Pain Scale 4-6) 09/28/17 19:15 10/04/17 19:14 Nitroglycerin (Ntg) 0.4 mg Q5MIN X 3 DOSES PRN SL Prn Chest Pain 09/28/17 19:00 10/27/17 19:29 Ondansetron HCl (Zofran) 4 mg Q6H PRN IVP Nausea & Vomiting 09/28/17 19:15 10/27/17 19:14 Polyethylene Glycol (Miralax) 17 gm DAILYPRN PRN ORAL Constipation 09/28/17 19:15 10/27/17 19:14 Sevelamer Carbonate (Renvela) 800 mg THREE TIMES A DAY ORAL 09/29/17 09:00 10/28/17 08:59 09/30/17 17:23 Sodium Chloride 1,000 ml @ 100 mls/hr Q10H IVLG 09/28/17 20:00 10/28/17 19:59 09/30/17 06:15 Temazepam (Restoril) 15 mg HSPRN PRN ORAL Insomnia 09/28/17 21:00 10/04/17 20:59 Vancomycin HCl (Vanco rx to dose) 1 ea DAILYPRN PRN MISC RX TO DOSE 09/28/17 19:15 10/28/17 19:14 Allergies: Coded Allergies: CEFEPIME (Verified Allergy, Intermediate, Rash, 01/23/13) ROS Limited/Unobtainable: No Constitutional: Reports: no symptoms HEENT: Reports: no symptoms Cardiovascular: Reports: no symptoms Respiratory: Reports: no symptoms Gastrointestinal/Abdominal: Reports: no symptoms Genitourinary: Reports: no symptoms Neurologic/Psychiatric: Reports: no symptoms Subjective 62 YO M admitted with hematuria. S/P ultrasound guided cystostomy with suprapubic cath placement on 09/28/17.. Cover for Int Jordan Rosado Objective Last Vital Signs Date Time Temp Pulse Resp B/P (MAP) Pulse Ox O2 Delivery O2 Flow Rate FiO2 09/30/17 16:00 98.9 74 20 125/53 93 98.9 09/30/17 07:50 Room Air 21 09/29/17 19:52 3.0 Laboratory Tests Test 09/30/17 05:05 White Blood Count 7.6 K/UL (4.8-10.8) Red Blood Count 2.80 M/UL (4.70-6.10) L Hemoglobin 8.8 G/DL (14.2-18.0) #L Hematocrit 26.6 % (42.0-52.0) #L Mean Corpuscular Volume 95 FL (80-99) Mean Corpuscular Hemoglobin 31.2 PG (27.0-31.0) H Mean Corpuscular Hemoglobin Concent 33.0 G/DL (32.0-36.0) Red Cell Distribution Width 15.0 % (11.6-14.8) H Platelet Count 187 K/UL (150-450) Mean Platelet Volume 6.4 FL (6.5-10.1) L Neutrophils (%) (Auto) 69.6 % (45.0-75.0) Lymphocytes (%) (Auto) 18.1 % (20.0-45.0) L Monocytes (%) (Auto) 8.3 % (1.0-10.0) Eosinophils (%) (Auto) 3.4 % (0.0-3.0) H Basophils (%) (Auto) 0.6 % (0.0-2.0) Sodium Level 139 MMOL/L (136-145) Potassium Level 4.9 MMOL/L (3.5-5.1) Chloride Level 107 MMOL/L (98-107) Carbon Dioxide Level 20 MMOL/L (21-32) L Anion Gap 12 mmol/L (5-15) Blood Urea Nitrogen 66 mg/dL (7-18) H Creatinine 4.6 MG/DL (0.55-1.30) H Estimat Glomerular Filtration Rate 13.0 mL/min (>60) Glucose Level 279 MG/DL (74-106) H Calcium Level 8.2 MG/DL (8.5-10.1) L Phosphorus Level 3.2 MG/DL (2.5-4.9) Magnesium Level 1.9 MG/DL (1.8-2.4) Total Bilirubin 0.5 MG/DL (0.2-1.0) Direct Bilirubin 0.1 MG/DL (0.0-0.3) Aspartate Amino Transf (AST/SGOT) 11 U/L (15-37) L Alanine Aminotransferase (ALT/SGPT) 10 U/L (12-78) L Alkaline Phosphatase 75 U/L (46-116) Total Protein 6.2 G/DL (6.4-8.2) L Albumin 2.1 G/DL (3.4-5.0) L Intake and Output 09/29/17 09/30/17 19:00 07:00 Intake Total 680 ml 1350 ml Output Total 1600 ml 1200 ml Balance -920 ml 150 ml Intake Oral 680 ml 340 ml IV Total 1010 ml Output Urine Total 1600 ml 1200 ml Objective General Appearance: WD/WN, no apparent distress, alert EENT: PERRL/EOMI, normal ENT inspection Neck: non-tender, normal alignment, supple, normal inspection Cardiovascular: normal peripheral pulses, normal rate, regular rhythm, no gallop/murmur, no JVD Respiratory/Chest: chest wall non-tender, lungs clear, normal breath sounds, no respiratory distress, no accessory muscle use Abdomen: normal bowel sounds, non tender, soft, no organomegaly, no mass Extremities: normal range of motion Neurologic: development spec II-XII grossly normal, no motor/sensory deficits Skin: normal pigmentation, warm/dry Assessment/Plan Problem List: (1) Scrotal edema (2) Hyperparathyroidism (3) Hematuria (4) DM (diabetes mellitus) Assessment & Plan: Continue novolog sliding scale. (5) CKD (chronic kidney disease), stage III Assessment & Plan: See nephrology note (6) Renal osteodystrophy (7) Gastritis (8) Coronary heart disease (9) BPH (benign prostatic hyperplasia) (10) Urine retention Assessment & Plan: due to edema of scrotum. S/P ultrasound cystostomy with suprapubic cath 09/28/17-see urology note. Assessment/Plan Discharge planning: [facility] DEE MAHER Sep 30, 2017 18:08
[2017-09-30 20:00] VITALS: BP 163/77
[2017-09-30] MEDS: Dyna-Hex 2% Top Sol 2oz TOPIC SCH (21:35)
--- NOTE | 2017-09-30 21:36 | General Progress Note ---
Assessment/Plan Status: stable, progressing Assessment/Plan mdd cymbalta 30mg qam provided ro/st Subjective Date patient seen: Sep 30, 2017 Neurologic/Psychiatric: Reports: anxiety, depressed Allergies: Coded Allergies: CEFEPIME (Verified Allergy, Intermediate, Rash, 01/23/13) Objective Last 24 Hour Vital Signs Date Time Temp Pulse Resp B/P (MAP) Pulse Ox O2 Delivery O2 Flow Rate FiO2 09/30/17 20:01 73 18 Room Air 21 09/30/17 20:00 99.0 67 17 163/77 95 Room Air 99.0 09/30/17 16:00 98.9 74 20 125/53 93 98.9 09/30/17 12:00 98.2 75 19 155/77 98 98.2 09/30/17 09:00 69 121/56 09/30/17 09:00 69 121/56 09/30/17 08:00 98.1 69 17 121/56 96 98.1 09/30/17 07:50 70 18 Room Air 21 09/30/17 04:00 98.5 76 18 139/64 93 98.5 09/30/17 04:00 Room Air 09/30/17 00:00 Room Air 09/30/17 00:00 99.3 81 18 119/55 96 99.3 Intake and Output 09/29/17 09/30/17 19:00 07:00 Intake Total 680 ml 1350 ml Output Total 1600 ml 1200 ml Balance -920 ml 150 ml Intake Oral 680 ml 340 ml IV Total 1010 ml Output Urine Total 1600 ml 1200 ml Laboratory Tests 09/30/17 05:05: White Blood Count 7.6, Red Blood Count 2.80L, Hemoglobin 8.8#L, Hematocrit 26.6# L, Mean Corpuscular Volume 95, Mean Corpuscular Hemoglobin 31.2H, Mean Corpuscular Hemoglobin Concent 33.0, Red Cell Distribution Width 15.0H, Platelet Count 187, Mean Platelet Volume 6.4L, Neutrophils (%) (Auto) 69.6, Lymphocytes (%) (Auto) 18.1L, Monocytes (%) (Auto) 8.3, Eosinophils (%) (Auto) 3.4H, Basophils (%) (Auto) 0.6, Sodium Level 139, Potassium Level 4.9, Chloride Level 107, Carbon Dioxide Level 20L, Anion Gap 12, Blood Urea Nitrogen 66H, Creatinine 4.6H, Estimat Glomerular Filtration Rate 13.0, Glucose Level 279H, Calcium Level 8.2L, Phosphorus Level 3.2, Magnesium Level 1.9, Total Bilirubin 0.5, Direct Bilirubin 0.1, Aspartate Amino Transf (AST/SGOT) 11L, Alanine Aminotransferase (ALT/SGPT) 10L, Alkaline Phosphatase 75, Total Protein 6.2L, Albumin 2.1L Height (Feet): 5 Height (Inches): 9.00 Weight (Pounds): 190 General Appearance: no apparent distress, alert Neurologic: oriented x 3, responsive, depressed affect Fatmata Lu M.D. Sep 30, 2017 21:36
--- NOTE | 2017-09-30 22:27 | Pulmonology Progress Note ---
Assessment/Plan Problems: (1) Hematuria (2) HTN (hypertension) (3) CAD (coronary artery disease) (4) Pulmonary HTN (5) Psychiatric disturbance (6) Anemia (7) Transplant recipient (8) Anemia in chronic kidney disease Assessment/Plan pt pulled his suprapubic catheter i radiology will put one in am check electrolytes prbc time one now f/u by nephrology check cultures check h/h in am symptomatic treatment Subjective ROS Limited/Unobtainable: No Constitutional: Reports: no symptoms HEENT: Repors: no symptoms Respiratory: Reports: no symptoms Allergies: Coded Allergies: CEFEPIME (Verified Allergy, Intermediate, Rash, 01/23/13) Objective Last 24 Hour Vital Signs Date Time Temp Pulse Resp B/P (MAP) Pulse Ox O2 Delivery O2 Flow Rate FiO2 09/30/17 21:36 73 163/77 09/30/17 20:01 73 18 Room Air 21 09/30/17 20:00 99.0 67 17 163/77 95 Room Air 99.0 09/30/17 16:00 98.9 74 20 125/53 93 98.9 09/30/17 12:00 98.2 75 19 155/77 98 98.2 09/30/17 09:00 69 121/56 09/30/17 09:00 69 121/56 09/30/17 08:00 98.1 69 17 121/56 96 98.1 09/30/17 07:50 70 18 Room Air 21 09/30/17 04:00 98.5 76 18 139/64 93 98.5 09/30/17 04:00 Room Air 09/30/17 00:00 Room Air 09/30/17 00:00 99.3 81 18 119/55 96 99.3 Intake and Output 09/29/17 09/30/17 19:00 07:00 Intake Total 680 ml 1350 ml Output Total 1600 ml 1200 ml Balance -920 ml 150 ml Intake Oral 680 ml 340 ml IV Total 1010 ml Output Urine Total 1600 ml 1200 ml Objective General Appearance: WD/WN, no apparent distress, alert Lines, tubes and drains: peripheral HEENT: normocephalic, atraumatic, anicteric, mucous membranes moist, PERRL Neck: non-tender, normal alignment, supple Respiratory/Chest: chest wall non-tender, lungs clear, normal breath sounds, no respiratory distress Cardiovascular/Chest: regular rhythm Abdomen: normal bowel sounds, non tender, no organomegaly, no mass, suprapubic catheter in place Genitourinary/Rectal: normal genital exam Extremities: normal range of motion, non-tender, normal inspection Skin Exam: normal pigmentation 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 Laboratory Tests 09/30/17 05:05: White Blood Count 7.6, Red Blood Count 2.80L, Hemoglobin 8.8#L, Hematocrit 26.6# L, Mean Corpuscular Volume 95, Mean Corpuscular Hemoglobin 31.2H, Mean Corpuscular Hemoglobin Concent 33.0, Red Cell Distribution Width 15.0H, Platelet Count 187, Mean Platelet Volume 6.4L, Neutrophils (%) (Auto) 69.6, Lymphocytes (%) (Auto) 18.1L, Monocytes (%) (Auto) 8.3, Eosinophils (%) (Auto) 3.4H, Basophils (%) (Auto) 0.6, Sodium Level 139, Potassium Level 4.9, Chloride Level 107, Carbon Dioxide Level 20L, Anion Gap 12, Blood Urea Nitrogen 66H, Creatinine 4.6H, Estimat Glomerular Filtration Rate 13.0, Glucose Level 279H, Calcium Level 8.2L, Phosphorus Level 3.2, Magnesium Level 1.9, Total Bilirubin 0.5, Direct Bilirubin 0.1, Aspartate Amino Transf (AST/SGOT) 11L, Alanine Aminotransferase (ALT/SGPT) 10L, Alkaline Phosphatase 75, Total Protein 6.2L, Albumin 2.1L Current Medications Medications (Trade) Dose Ordered Sig/Dunia Route PRN Reason Start Time Stop Time Status Last Admin Dose Admin Acetaminophen (Tylenol) 650 mg Q4H PRN ORAL T>100.5 09/28/17 19:15 10/27/17 19:14 Albuterol/ Ipratropium (Albuterol/ Ipratropium) 3 ml Q4H PRN HHN Shortness of Breath 09/28/17 19:15 10/02/17 19:14 Amlodipine Besylate (Norvasc) 5 mg DAILY ORAL 09/29/17 09:00 10/28/17 08:59 09/29/17 10:13 Atorvastatin Calcium (Lipitor) 10 mg BEDTIME ORAL 09/28/17 21:00 10/27/17 20:59 09/30/17 21:35 Azathioprine (Imuran) 50 mg DAILY ORAL 09/29/17 09:00 10/28/17 08:59 09/30/17 09:27 Aztreonam 0.5 gm/ Sodium Chloride 55 ml @ 110 mls/hr Q8H IVPB 09/29/17 10:00 10/06/17 09:59 09/30/17 17:23 Chlorhexidine Gluconate (Eloisa-Hex 2%) 1 applic DAILY@2000 TOPIC 09/28/17 22:30 10/28/17 22:29 09/30/17 21:35 Dextrose (Dextrose 50%) STAT PRN IV Hypoglycemia 09/28/17 19:15 10/27/17 19:14 Duloxetine HCl (Cymbalta) 30 mg DAILY ORAL 09/29/17 09:00 10/28/17 08:59 09/30/17 09:26 Epoetin Jose (Procrit (for non ESRD use)) 10,000 units WED-WED-WED SUBQ 09/29/17 21:00 10/29/17 20:59 09/29/17 21:09 Heparin Sodium (Porcine) (Heparin 5000 units/ml) 5,000 units EVERY 12 HOURS SUBQ 09/28/17 21:00 10/27/17 20:59 Insulin Aspart (NovoLOG) BEFORE MEALS AND HS SUBQ 09/28/17 21:00 10/27/17 20:59 09/30/17 21:35 Lansoprazole (Prevacid) 30 mg DAILY ORAL 09/29/17 09:00 10/28/17 17:59 09/30/17 09:27 Metoprolol Succinate (Toprol XL) 50 mg Q12HR ORAL 09/28/17 21:00 10/27/17 20:59 09/30/17 21:36 Morphine Sulfate (Morphine Sulfate) 2 mg Q4H PRN IVP Moderate Pain (Pain Scale 4-6) 09/28/17 19:15 10/04/17 19:14 Nitroglycerin (Ntg) 0.4 mg Q5MIN X 3 DOSES PRN SL Prn Chest Pain 09/28/17 19:00 10/27/17 19:29 Ondansetron HCl (Zofran) 4 mg Q6H PRN IVP Nausea & Vomiting 09/28/17 19:15 10/27/17 19:14 Polyethylene Glycol (Miralax) 17 gm DAILYPRN PRN ORAL Constipation 09/28/17 19:15 10/27/17 19:14 Sevelamer Carbonate (Renvela) 800 mg THREE TIMES A DAY ORAL 09/29/17 09:00 10/28/17 08:59 09/30/17 17:23 Sodium Chloride 1,000 ml @ 100 mls/hr Q10H IVLG 09/28/17 20:00 10/28/17 19:59 09/30/17 21:36 Temazepam (Restoril) 15 mg HSPRN PRN ORAL Insomnia 09/28/17 21:00 10/04/17 20:59 Vancomycin HCl (Vanco rx to dose) 1 ea DAILYPRN PRN MISC RX TO DOSE 09/28/17 19:15 10/28/17 19:14 Esdras Delgado MD Sep 30, 2017 22:27
[2017-10-01] VITALS (15 sets, daily range): BP systolic 123–161; BP diastolic 59–97
[2017-10-01] MEDS: Aztreonam Inj 0.5 GM in NS 55 ML IVPB SCH ×3 (01:35→17:14)
[2017-10-01] MEDS: NovoLOG Insulin Flexpen SUBQ SCH ×4 (06:04→21:28)
--- NOTE | 2017-10-01 08:14 | Pulmonology Progress Note ---
Assessment/Plan Assessment/Plan ASSESSMENT Hematuria Acute renal failure on chronic kidney disease stage 3 Diabetic nephropathy dehydration Urethral obstruction s/p suprapubic cystostomy with placement of a 14 [place] pigtail drainage catheter Scrotal cellulitis HTN DM Hyperglycemia 2 to DM Anemia of chronic kidney disease hx of renal and pancreas transplant Hx of CVA Coagulopathy BPH MDD PLAN OF CARE MS floor CT A/P noted Urology consult appreciated s/p cystostomy by IR ( for urethral obstruction) , which patient pulled out need reinsertion of s/p catheter nephro follows IVF monitor renal parameters, correct lytes as needed, avoid nephrotoxic creat down to 4.8 Flomax abx ID follows monitor HH, s/p blood transfusion, anemia w/up EPO BP management with CCB and BB BS management with SSI and optimize as needed DVT GI prophylaxis O2 HHN prn Continue statin Coagulopathy corrected with FFP transfusion, INR down case discussed and evaluated by supervising physician Subjective Allergies: Coded Allergies: CEFEPIME (Verified Allergy, Intermediate, Rash, 01/23/13) Subjective patient pulled out his s/p catheter initially inserted 09/27 Objective Last 24 Hour Vital Signs Date Time Temp Pulse Resp B/P (MAP) Pulse Ox O2 Delivery O2 Flow Rate FiO2 10/01/17 04:22 98.2 85 20 145/76 95 Room Air 98.2 10/01/17 00:00 98.4 76 16 155/83 97 98.4 09/30/17 21:36 73 163/77 09/30/17 20:01 73 18 Room Air 21 09/30/17 20:00 99.0 67 17 163/77 95 Room Air 99.0 09/30/17 16:00 98.9 74 20 125/53 93 98.9 09/30/17 12:00 98.2 75 19 155/77 98 98.2 09/30/17 09:00 69 121/56 09/30/17 09:00 69 121/56 Intake and Output 09/30/17 10/01/17 19:00 07:00 Intake Total 580 ml 955 ml Output Total 400 ml Balance 180 ml 955 ml Intake Oral 480 ml IV Total 100 ml 955 ml Output Urine Total 400 ml # Voids 3 # Bowel Movements 1 1 General Appearance: no acute distress HEENT: normocephalic, atraumatic, anicteric, mucous membranes moist, other - L eye blind Respiratory/Chest: chest wall non-tender, normal breath sounds, no respiratory distress Cardiovascular: normal peripheral pulses, normal rate, no JVD Abdomen: normal bowel sounds, soft, non tender Skin: other Neurologic/Psychiatric: alert - confused , responsive Musculoskeletal: normal muscle bulk Laboratory Tests 10/01/17 05:00: Random Vancomycin Level 15.2 Current Medications Medications (Trade) Dose Ordered Sig/Dunia Route PRN Reason Start Time Stop Time Status Last Admin Dose Admin Acetaminophen (Tylenol) 650 mg Q4H PRN ORAL T>100.5 09/28/17 19:15 10/27/17 19:14 Albuterol/ Ipratropium (Albuterol/ Ipratropium) 3 ml Q4H PRN HHN Shortness of Breath 09/28/17 19:15 10/02/17 19:14 Amlodipine Besylate (Norvasc) 5 mg DAILY ORAL 09/29/17 09:00 10/28/17 08:59 09/29/17 10:13 Atorvastatin Calcium (Lipitor) 10 mg BEDTIME ORAL 09/28/17 21:00 10/27/17 20:59 09/30/17 21:35 Azathioprine (Imuran) 50 mg DAILY ORAL 09/29/17 09:00 10/28/17 08:59 09/30/17 09:27 Aztreonam 0.5 gm/ Sodium Chloride 55 ml @ 110 mls/hr Q8H IVPB 09/29/17 10:00 10/06/17 09:59 10/01/17 01:35 Chlorhexidine Gluconate (Eloisa-Hex 2%) 1 applic DAILY@2000 TOPIC 09/28/17 22:30 10/28/17 22:29 09/30/17 21:35 Dextrose (Dextrose 50%) STAT PRN IV Hypoglycemia 09/28/17 19:15 10/27/17 19:14 Duloxetine HCl (Cymbalta) 30 mg DAILY ORAL 09/29/17 09:00 10/28/17 08:59 09/30/17 09:26 Epoetin Jose (Procrit (for non ESRD use)) 10,000 units WED-WED-WED SUBQ 09/29/17 21:00 10/29/17 20:59 09/29/17 21:09 Heparin Sodium (Porcine) (Heparin 5000 units/ml) 5,000 units EVERY 12 HOURS SUBQ 09/28/17 21:00 10/27/17 20:59 Insulin Aspart (NovoLOG) BEFORE MEALS AND HS SUBQ 09/28/17 21:00 10/27/17 20:59 10/01/17 06:04 Lansoprazole (Prevacid) 30 mg DAILY ORAL 09/29/17 09:00 10/28/17 17:59 09/30/17 09:27 Metoprolol Succinate (Toprol XL) 50 mg Q12HR ORAL 09/28/17 21:00 10/27/17 20:59 09/30/17 21:36 Morphine Sulfate (Morphine Sulfate) 2 mg Q4H PRN IVP Moderate Pain (Pain Scale 4-6) 09/28/17 19:15 10/04/17 19:14 Nitroglycerin (Ntg) 0.4 mg Q5MIN X 3 DOSES PRN SL Prn Chest Pain 09/28/17 19:00 10/27/17 19:29 Ondansetron HCl (Zofran) 4 mg Q6H PRN IVP Nausea & Vomiting 09/28/17 19:15 10/27/17 19:14 Polyethylene Glycol (Miralax) 17 gm DAILYPRN PRN ORAL Constipation 09/28/17 19:15 10/27/17 19:14 Sevelamer Carbonate (Renvela) 800 mg THREE TIMES A DAY ORAL 09/29/17 09:00 10/28/17 08:59 09/30/17 17:23 Sodium Chloride 1,000 ml @ 100 mls/hr Q10H IVLG 09/28/17 20:00 10/28/17 19:59 09/30/17 21:36 Temazepam (Restoril) 15 mg HSPRN PRN ORAL Insomnia 09/28/17 21:00 10/04/17 20:59 Vancomycin HCl (Vanco rx to dose) 1 ea DAILYPRN PRN MISC RX TO DOSE 09/28/17 19:15 10/28/17 19:14 Vancomycin HCl/ Dextrose 250 ml @ 166.667 mls/hr ONCE ONCE IVPB 10/01/17 09:00 10/01/17 10:29 Catherine Griffin NP (Vanchtein) Oct 01, 2017 08:14
[2017-10-01] MEDS ORDERED: Vancomycin 1250mg/D5W 250ml IVPB ONE (09:00)
[2017-10-01] MEDS: Heparin 5000 units/ml inj SUBQ SCH ×2 (09:00→21:00)
[2017-10-01] MEDS: Metoprolol Succinate XL 50mg tab ORAL SCH ×2 (09:43→21:20)
[2017-10-01] MEDS: DULoxetine 30mg cap ORAL SCH (09:43)
[2017-10-01] MEDS: azaTHIOprine 50 MG TAB ORAL SCH (09:43)
[2017-10-01] MEDS ORDERED: Lidocaine 1% Plain 30 ml INJ ONE ×2 (13:27→13:30)
[2017-10-01] MEDS ORDERED: Lidocaine 1% 10mg/ml/Epi 0.005mg/ml 30ml vial INJ ONE (13:30)
--- NOTE | 2017-10-01 13:56 | Pre-Procedure Note/Attestation ---
Pre-Procedure Note/Attestation Complete Prior to Procedure Procedure Narrative: replacement of cystostomy Indications for Procedure Pre-Operative Diagnosis: urethral obstruction Attestation I attest that I discussed the nature of the procedure; its benefits; risks and complications; and alternatives (and the risks and benefits of such alternatives ), prior to the procedure, with the patient (or the patient's legal pharmacy services representative). I attest that, if there was a reasonable possibility of needing a blood transfusion, the patient (or the patient's legal pharmacy services representative) was given the [facility] standardized written summary, pursuant to the Rodrigo Blood Safety Act ([place] Health and Safety Code # 1645, as amended). I attest that I re-evaluated the patient just prior to the surgery and that there has been no change in the patient's H&P, except as documented below: AWAIS SIMMS M.D. Oct 01, 2017 13:56
[2017-10-01] MEDS ORDERED: fentaNYL 100 mcg/2 mL IV ONE (14:21)
[2017-10-01] MEDS ORDERED: Midazolam 2mg/2ml Inj ONE (14:21)
--- NOTE | 2017-10-01 14:23 | Moderate Sedation - Procedural ---
Moderate Sedation HPI Home Medication Active Scripts Insulin Detemir (LEVEMIR FLEXPEN) 100 Unit/1 Ml Insuln.pen, 15 UNITS SUBQ BID, # 1 EA Prov:Lyn Diaz NP 09/02/15 Doxycycline Hyclate (DOXYCYCLINE HYCLATE) 100 Mg Tablet, 100 MG PO BID, #20 TAB Prov:Christopher Rosado MD 04/15/15 Polyethylene Glycol* (MIRALAX*) 17 Gm Pack, 17 GM ORAL BEDTIME for 30 Days, PACK Prov:ARTSFELIPAMILTON N.P. 03/04/15 Atorvastatin Calcium* (LIPITOR*) 10 Mg Tab, 10 MG ORAL BEDTIME for 30 Days, TAB Prov:ARTSRUNYHEMANT,MILTON N.P. 03/04/15 Reported Medications Doxycycline Hyclate* (VIBRAMYCIN*) 100 Mg Capsule, 100 MG ORAL EVERY 12 HOURS, # 14 CAP 0 Refills 10/03/17 Temazepam* (RESTORIL*) 15 Mg Capsule, 15 MG ORAL BEDTIME PRN for Insomnia, CAP 10/03/17 Sevelamer Carbonate* (RENVELA*) 0.8 Gm Powd.pack, 800 MG ORAL THREE TIMES A DAY , PACK 10/03/17 Nitroglycerin (NITROGLYCERIN) 0.4 Mg Tab.subl, 0.4 MG SL PRN for Prn Chest Pain , TAB 10/03/17 Levofloxacin* (LEVAQUIN*) 500 Mg Tablet, 500 MG ORAL QOD, #7 TAB 10/03/17 Lansoprazole* (PREVACID*) 30 Mg Capsule.dr, 30 MG ORAL DAILY, CAP 10/03/17 [Novolog ss] No Conflict Check 05/31/17 Azathioprine* (IMURAN*) 50 Mg Tablet, 50 MG PO DAILY, TAB 07/15/16 Sevelamer Carbonate* (RENVELA*) 0.8 Gm Powd.pack, 800 MG ORAL THREE TIMES A DAY , PACK 04/11/15 Acetaminophen (Acetaminophen) 650 Mg/20.3 Ml Soln, 650 MG ORAL Q6H PRN for Prn Headache/Temp > 101, ML 0 Refills 12/28/13 Duloxetine Hcl* (CYMBALTA*) 30 Mg Capsule.dr, 30 MG ORAL DAILY, CAP 12/28/13 Amlodipine Besylate (Norvasc) 5 Mg Tab, 5 MG ORAL DAILY, TAB 12/06/13 Metoprolol Succinate* (METOPROLOL SUCCINATE*) 50 Mg Tab.er.24h, 50 MG ORAL Q12HR , TAB 12/06/13 Epoetin Jose (Epogen) 10 000/1 Ml Vial, 39733 UNIT SUBQ THREE TIMES A WEEK, VIAL 12/06/13 Discontinued Reported Medications Daptomycin (Cubicin Rf) 500 Mg Vial, 500 MG IV 48 hrs for 22 Days, VIAL 08/19/17 Daptomycin (Cubicin Rf) 500 Mg Vial, MG IV 48 hrs, VIAL 08/19/17 Linezolid (Zyvox) 600 Mg/300 Ml Iv.soln, 600 MG IVPB EVERY 12 HOURS, MG 06/07/17 Ertapenem Sodium* (INVanz*) 1 Gm Vial.port, 1 GM IVPB Q24H, VIAL 06/07/17 Insulin Glargine (LANTUS) 100 Unit/1 Ml Insuln.pen, 6 SUBQ BEDTIME, #1 EA 0 Refills 05/31/17 Insulin Glargine (LANTUS) 100 Unit/1 Ml Insuln.pen, 10 SUBQ DAILY, #1 EA 0 Refills 05/31/17 Insulin Aspart (Novolog Flexpen) 100 Unit/1 Ml Insuln.pen, 5 SQ AC 05/31/17 Cranberry Fruit Concentrate (CRANBERRY) 450 Mg Capsule, 450 MG PO DAILY, CAP 05/31/17 Omeprazole (OMEPRAZOLE) 40 Mg Capsule.dr, 40 MG ORAL DAILY, CAP 05/31/17 Ferrous Sulfate* (FERROUS SULFATE*) 325 Mg Tablet, 325 MG ORAL DAILY, #30 TAB 0 Refills 07/15/16 Vitamin D (Vitamin D3) 400 Unit Tablet, 5000 UNITS ORAL DAILY, TAB 07/15/16 Atorvastatin Calcium* (LIPITOR*) 10 Mg Tablet, 10 MG ORAL BEDTIME, TAB 07/15/16 Vit B Complex & C No.13/Fa/D3 (NEPHROCAPS QT TABLET) 1 Each Tab.rapdis, 1 EACH PO DAILY, TAB 08/30/15 Insulin Glargine (LANTUS) 100 Unit/1 Ml Insuln.pen, 6 SUBQ BID, #1 EA 0 Refills 08/30/15 Insulin Lispro (HUMALOG) 100 Unit/1 Ml Cartridge, 4 SUBQ AC, #1 UNITS 0 Refills 08/30/15 Citric Acid/Sodium Citrate (CYTRA-2 ORAL SOLUTION) 473 Ml Solution, 30 ML PO 08/30/15 Warfarin Sod* (COUMADIN*) 4 Mg Tablet, 4 MG ORAL DAILY, TAB 04/11/15 Ondansetron (Zofran) 4 Mg Tab, 4 MG ORAL Q6H PRN for Nausea & Vomiting, TAB 12/06/13 Tamsulosin HCl (Flomax) 0.4 Mg Cap, 0.4 MG ORAL BID, TAB 02/04/13 Discontinued Scripts Tamsulosin Hcl (TAMSULOSIN HCL*) 0.4 Mg Cap.er.24h, 0.4 MG ORAL BEDTIME for 30 Days, CAP Prov:DEE MAHER 06/04/17 Finasteride (FINASTERIDE) 5 Mg Tablet, 5 MG ORAL DAILY for 30 Days, TAB Prov:DEE MAHER 06/04/17 Insulin Aspart (Novolog Flexpen) 100 Units/Ml Pen, 0 UNITS SUBQ BEFORE MEALS AND HS, #1 EA Prov:Lyn Diaz PHOTOGRAPHIC MACHINE OPERATOR 09/02/15 Insulin Aspart (Novolog Flexpen) 100 Units/Ml Pen, 10 UNITS SUBQ NOVOTIAC, #1 EA Prov:Lyn Diaz PHOTOGRAPHIC MACHINE OPERATOR 09/02/15 [Warfarin RX monitoring] 1 EA MISC No Conflict Check, 1 EA MISC DAILY PRN for Per rx protocol Prov:ARTSRUNYAN,MILTON N.P. 03/04/15 Pantoprazole* (PROTONIX*) 40 Mg Tabec, 40 MG ORAL DAILY for 30 Days, TAB Prov:ARTSRUNYAN,MILTON N.P. 03/04/15 Ipratropium/Albuterol Sulfate (DuoNeb 0.5-3(2.5)mg/3ml) 3 Ml Ampul.neb, 3 ML HHN Q4HRT PRN for Shortness of Breath for 30 Days, EA Prov:ARTSRUNYAN,MILTON N.P. 03/04/15 Docusate Sodium* (COLACE*) 100 Mg Cap, 100 MG ORAL TWICE A DAY for 30 Days, CAP Prov:ARTSRUNYAN,MILTON N.P. 03/04/15 Cholecalciferol (Vitamin D3)* (VITAMIN D*) 1,000 Intlu Tab, 5000 INTLU ORAL Mo@ 09 for 30 Days, TAB Prov:TATYANA MERAZA N.P. 03/04/15 Azathioprine (Azathioprine) 50 Mg Tab, 50 MG ORAL DAILY for 30 Days, TAB Prov:ARTSRUNYAN,MILTON N.P. 03/04/15 Aspirin* (ASPIRIN*) 81 Mg Chew, 81 MG ORAL DAILY for 30 Days, TAB Prov:YOLANDARUNYHEMANT,MILTON N.P. 03/04/15 Sodium Citrate (Sod Citrate-Citric Acid Soln) 30 Ml Udc, 30 ML ORAL THREE TIMES A DAY, #90 EA Prov:LUPEANDREW PHOTOGRAPHIC MACHINE OPERATOR 02/14/14 Patient History Allergies: Coded Allergies: CEFEPIME (Verified Allergy, Intermediate, Rash, 01/23/13) Pre-Procedural Mod Sedation Date: Oct 01, 2017 Pre-Assessment Time: 14:22 Pre-Sedation Assessment: Elective Airway Assessment (Malampati): III Heart: normal Lungs: normal Abdomen: normal Extremities: normal Evaluation Hx of untoward rxns to mod sed: No Procedures/Plans: Radiology Plan for Moderate Sedation: Midazolam, Fentanyl ASA Score: II Informed Consent The nature of the procedure/sedation; its benefits; risks and complications; and alternatives (and the risks and benefits of such alternatives) were discussed with the patient (or their legal it sales representative), prior to the procedure. All questions were answered to the patient's (or their legal it sales representative's) satisfaction and the patient (or their legal it sales representative) gave informed consent to the procedure. I attest that I re-evaluated the patient just prior to the surgery and that there has been no change in the patient's H&P, except as documented below: Post Procedure Assessment Post Procedure TIme: 15:00 Communication: No Apparent Limitation Mental Status: Awake Respiration: Unlabored Skin Condition: WNL Adomen: WNL Nausea: NO - No sedation utilized--patient had eaten lunch AWAIS SIMMS M.D. Oct 01, 2017 14:23
--- NOTE | 2017-10-01 15:08 | Nephrology Progress Note ---
Assessment/Plan Problem List: (1) Hydronephrosis (2) BPH (benign prostatic hypertrophy) (3) Nephropathy, diabetic (4) CKD (chronic kidney disease), stage III Assessment (1) CKD (chronic kidney disease), stage III, superimposed acute- Cr unchanged since last admit Cr down to 4.6 from 5.7 (2) Dehydration- Partly due to hyperglycemia (3) Hyperglycemia due to type 2 diabetes mellitus (4) BPH (benign prostatic hypertrophy) (5) Nephropathy, diabetic (6) History of simultaneous kidney and pancreas transplant (7) UTI (urinary tract infection) (8) Anemia of CKD Plan Had suprapubic cath upon admission avoid nephrotoxics BP and BS control- Flomax PO- monitor renal parameters Anemia [place] EPO SQ Subjective ROS Limited/Unobtainable: No Objective Objective Last 24 Hour Vital Signs Date Time Temp Pulse Resp B/P (MAP) Pulse Ox O2 Delivery O2 Flow Rate FiO2 10/01/17 15:00 80 20 157/77 100 Room Air 10/01/17 13:38 75 16 10/01/17 12:00 98.0 73 18 159/75 97 98.0 10/01/17 09:43 72 152/78 10/01/17 09:43 72 152/78 10/01/17 08:00 97.2 72 18 152/78 97 97.2 10/01/17 06:50 54 18 Room Air 21 10/01/17 04:22 98.2 85 20 145/76 95 Room Air 98.2 10/01/17 00:00 98.4 76 16 155/83 97 98.4 09/30/17 21:36 73 163/77 09/30/17 20:01 73 18 Room Air 21 09/30/17 20:00 99.0 67 17 163/77 95 Room Air 99.0 09/30/17 16:00 98.9 74 20 125/53 93 98.9 Intake and Output 09/30/17 10/01/17 19:00 07:00 Intake Total 580 ml 955 ml Output Total 400 ml Balance 180 ml 955 ml Intake Oral 480 ml IV Total 100 ml 955 ml Output Urine Total 400 ml # Voids 3 # Bowel Movements 1 1 Laboratory Tests 10/01/17 05:00: Random Vancomycin Level 15.2 Height (Feet): 5 Height (Inches): 9.00 Weight (Pounds): 190 General Appearance: no apparent distress Respiratory/Chest: decreased breath sounds Abdomen: soft Objective no change BERT ALONSO Oct 01, 2017 15:08
--- NOTE | 2017-10-01 15:12 | General Progress Note ---
Assessment/Plan Assessment/Plan mdd cymbalta 30mg qam provided ro/st Subjective Date patient seen: Oct 01, 2017 Neurologic/Psychiatric: Reports: anxiety, depressed, emotional problems Allergies: Coded Allergies: CEFEPIME (Verified Allergy, Intermediate, Rash, 01/23/13) Objective Last 24 Hour Vital Signs Date Time Temp Pulse Resp B/P (MAP) Pulse Ox O2 Delivery O2 Flow Rate FiO2 10/01/17 15:05 79 20 161/81 100 Room Air 10/01/17 15:00 80 20 157/77 100 Room Air 10/01/17 13:38 75 16 10/01/17 12:00 98.0 73 18 159/75 97 98.0 10/01/17 09:43 72 152/78 10/01/17 09:43 72 152/78 10/01/17 08:00 97.2 72 18 152/78 97 97.2 10/01/17 06:50 54 18 Room Air 21 10/01/17 04:22 98.2 85 20 145/76 95 Room Air 98.2 10/01/17 00:00 98.4 76 16 155/83 97 98.4 09/30/17 21:36 73 163/77 09/30/17 20:01 73 18 Room Air 21 09/30/17 20:00 99.0 67 17 163/77 95 Room Air 99.0 09/30/17 16:00 98.9 74 20 125/53 93 98.9 Intake and Output 09/30/17 10/01/17 19:00 07:00 Intake Total 580 ml 955 ml Output Total 400 ml Balance 180 ml 955 ml Intake Oral 480 ml IV Total 100 ml 955 ml Output Urine Total 400 ml # Voids 3 # Bowel Movements 1 1 Laboratory Tests 10/01/17 05:00: Random Vancomycin Level 15.2 Height (Feet): 5 Height (Inches): 9.00 Weight (Pounds): 190 General Appearance: no apparent distress, alert Neurologic: oriented x 3, depressed affect Fatmata Lu M.D. Oct 01, 2017 15:11
[2017-10-01] MEDS ORDERED: Albuterol/Ipratropium 3ml neb HHN PRN (15:15)
--- NOTE | 2017-10-01 16:27 | Infectious Diseases Prog Note ---
Assessment/Plan Assessment/Plan -Abx: IV Vancomcyin 09/27- Aztreonam 09/27- Ancef x1 09/28 Levaquin 09/27-09/28 Assessment: Hematuria Penile swelling w/ penile extensive hemorrhage and surrounding cellulitis; improving -s/p suprapubic cystostomy 09/28; re inserted 10/01 after patient pull it off -CT abd/p: Evidence of extensive hemorrhage around the penile shaft, extending into the adjacent subcutaneous fat. Marked edema and/or ecchymosis of the scrotal wall also demonstrated. There is also a small right hydrocele. Etiology of the hemorrhage uncertain, urethral injury a possibility. Per discussion with referring physician, there is evidence of cellulitis as well as urinary bleeding ; findings are concordant with this. There is no soft tissue gas to suggest infection with gas-forming organism. Markedly distended urinary bladder, which is less distended on the second acquisition. This probably indicates interim voiding with a considerable postvoidresidual. There is evidence of a large bladder diverticulum which may be in part postsurgical. Left iliac fossa transplant kidney hydronephrosis, which is somewhat but not completely improved on the second acquisition with the lower bladder volume. Presumably related to the bladder distention as no other obstructing lesion is demonstrated. Extensive perinephric edema, possibly related to the above. Possibility of superimposed nephritis should also be considered. Cholelithiasis, also previously reported. Evidence of prior abdominal wall hernia mesh repair -Bcx NTD Mild pyuria -ucx not sent afebrile, no leukocytosis CKD (previously on HD pre-transplant) s/p renal and pancreas Transplant ~10 yrs ago Recent Persistent Staph Epi bacteremia Jul 2017- MAY with no vegetations, likely from PICC line infection; s/p Rx -s/p PICC removal 08/09; cath cx <1+ CONS -08/06 Bcx 10/13 Staph epi/MRSE (labeld peripheral), Bcx 08/07 Neg 08/08 (line) 2/2 MRSE; 08/09 07/15 S.epi (however line was still in place); Bcx 08/11 2/ S. epi; 2/ 2 Neg -TTE: Thickened mitral valve leaflets with normal excursion. Mild mitral annulus and aortic root calcification. Pulmonic valve is well visualized. Normal tricuspid valve structure. No echodensity is seen on valves (vegetation) -AMY 08/19: no vegetations History of enterococcus bacteremia back in May. -07/15 E fecalis (Amp R, Vanco S) History of suicidal attempts in the past. History of myocardial infarction. History of anemia. History of colon polyps. Plan: -Continue IV vancomycin and Aztreonam #/-14 for scrotal cellulitis; upon discharge can transition to PO Doxycycline 100mg bid and Levaquin 500mg q 48h ( Rx in chart) -09/10 SP Daptomycin #34 -f/u cx -Monitor CBC,/BMP, temperatures -Prior discharge, PICC line to be remove Thank you for this consultation. Will continue to follow along with you. Discussed with RN Subjective Allergies: Coded Allergies: CEFEPIME (Verified Allergy, Intermediate, Rash, 01/23/13) Subjective afebrile no leukocytosis Bcx NTD Objective Vital Signs Last 24 Hour Vital Signs Date Time Temp Pulse Resp B/P (MAP) Pulse Ox O2 Delivery O2 Flow Rate FiO2 10/01/17 15:10 78 20 157/81 100 Room Air 10/01/17 15:05 79 20 161/81 100 Room Air 10/01/17 15:00 80 20 157/77 100 Room Air 10/01/17 13:38 75 16 10/01/17 12:00 98.0 73 18 159/75 97 98.0 10/01/17 09:43 72 152/78 10/01/17 09:43 72 152/78 10/01/17 08:00 97.2 72 18 152/78 97 97.2 10/01/17 06:50 54 18 Room Air 21 10/01/17 04:22 98.2 85 20 145/76 95 Room Air 98.2 10/01/17 00:00 98.4 76 16 155/83 97 98.4 09/30/17 21:36 73 163/77 09/30/17 20:01 73 18 Room Air 21 09/30/17 20:00 99.0 67 17 163/77 95 Room Air 99.0 Height (Feet): 5 Height (Inches): 9.00 Weight (Pounds): 190 Objective General Appearance: WD/WN Lines, tubes and drains: peripheral, endotracheal tube HEENT: normocephalic, atraumatic, mucous membranes moist, PERRL Neck: non-tender, normal inspection Respiratory/Chest: chest wall non-tender, normal breath sounds Cardiovascular/Chest: normal peripheral pulses Abdomen: normal bowel sounds Genitourinary/Rectal: genital area (penis,s crotum) -+ swelling, TTP, warmth; suprabpubic cath in place; celluitis and TTP improving Skin Exam: normal pigmentation 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 grossly normal Laboratory Tests Test 10/01/17 05:00 Random Vancomycin Level 15.2 ug/mL Current Medications Medications (Trade) Dose Ordered Sig/Dunia Route PRN Reason Start Time Stop Time Status Last Admin Dose Admin Acetaminophen (Tylenol) 650 mg Q4H PRN ORAL T>100.5 09/28/17 19:15 10/27/17 19:14 Albuterol/ Ipratropium (Albuterol/ Ipratropium) 3 ml Q4H PRN HHN Shortness of Breath 10/01/17 15:15 10/05/17 15:15 Amlodipine Besylate (Norvasc) 5 mg DAILY ORAL 09/29/17 09:00 10/28/17 08:59 10/01/17 09:43 Atorvastatin Calcium (Lipitor) 10 mg BEDTIME ORAL 09/28/17 21:00 10/27/17 20:59 09/30/17 21:35 Azathioprine (Imuran) 50 mg DAILY ORAL 09/29/17 09:00 10/28/17 08:59 10/01/17 09:43 Aztreonam 0.5 gm/ Sodium Chloride 55 ml @ 110 mls/hr Q8H IVPB 09/29/17 10:00 10/06/17 09:59 10/01/17 12:50 Chlorhexidine Gluconate (Eloisa-Hex 2%) 1 applic DAILY@2000 TOPIC 09/28/17 22:30 10/28/17 22:29 09/30/17 21:35 Dextrose (Dextrose 50%) STAT PRN IV Hypoglycemia 09/28/17 19:15 10/27/17 19:14 Duloxetine HCl (Cymbalta) 30 mg DAILY ORAL 09/29/17 09:00 10/28/17 08:59 10/01/17 09:43 Epoetin Jose (Procrit (for non ESRD use)) 10,000 units MON-WED-WED SUBQ 09/29/17 21:00 10/29/17 20:59 09/29/17 21:09 Heparin Sodium (Porcine) (Heparin 5000 units/ml) 5,000 units EVERY 12 HOURS SUBQ 09/28/17 21:00 10/27/17 20:59 Insulin Aspart (NovoLOG) BEFORE MEALS AND HS SUBQ 09/28/17 21:00 10/27/17 20:59 10/01/17 12:04 Lansoprazole (Prevacid) 30 mg DAILY ORAL 09/29/17 09:00 10/28/17 17:59 10/01/17 09:43 Levofloxacin 100 ml @ 100 mls/hr ONCE ONCE IVPB 10/01/17 16:00 10/01/17 16:59 Metoprolol Succinate (Toprol XL) 50 mg Q12HR ORAL 09/28/17 21:00 10/27/17 20:59 10/01/17 09:43 Morphine Sulfate (Morphine Sulfate) 2 mg Q4H PRN IVP Moderate Pain (Pain Scale 4-6) 09/28/17 19:15 10/04/17 19:14 Nitroglycerin (Ntg) 0.4 mg Q5MIN X 3 DOSES PRN SL Prn Chest Pain 09/28/17 19:00 10/27/17 19:29 Ondansetron HCl (Zofran) 4 mg Q6H PRN IVP Nausea & Vomiting 09/28/17 19:15 10/27/17 19:14 Polyethylene Glycol (Miralax) 17 gm DAILYPRN PRN ORAL Constipation 09/28/17 19:15 10/27/17 19:14 Sevelamer Carbonate (Renvela) 800 mg THREE TIMES A DAY ORAL 09/29/17 09:00 10/28/17 08:59 10/01/17 13:13 Sodium Chloride 1,000 ml @ 100 mls/hr Q10H IVLG 09/28/17 20:00 10/28/17 19:59 09/30/17 21:36 Temazepam (Restoril) 15 mg HSPRN PRN ORAL Insomnia 09/28/17 21:00 10/04/17 20:59 Vancomycin HCl (Vanco rx to dose) 1 ea DAILYPRN PRN MISC RX TO DOSE 09/28/17 19:15 10/28/17 19:14 Monique Read M.D. Oct 01, 2017 16:27
--- NOTE | 2017-10-01 17:14 | Brief Operative Note ---
Immediate Post Operative Note Operative Note Pre-op Diagnosis: urethral obstruction Procedure: Suprapubic cystostomy Post-op Diagnosis: same as pre-op Findings: consistent w/pre-op dx studies Surgeon: Frederick SIMMS Anesthesia: local Specimen: none Complications: none Condition: stable Fluids: none Drains: other - 14 F pigtail Implant(s) used?: No AWAIS SIMMS M.D. Oct 01, 2017 17:14
--- NOTE | 2017-10-01 17:41 | Internal Med Progress Note ---
Subjective Date of Service: Oct 01, 2017 Physician Name Maher,Dee Attending Physician Christopher Rosado MD Current Medications Medications (Trade) Dose Ordered Sig/Dunia Route PRN Reason Start Time Stop Time Status Last Admin Dose Admin Acetaminophen (Tylenol) 650 mg Q4H PRN ORAL T>100.5 09/28/17 19:15 10/27/17 19:14 Albuterol/ Ipratropium (Albuterol/ Ipratropium) 3 ml Q4H PRN HHN Shortness of Breath 10/01/17 15:15 10/05/17 15:15 Amlodipine Besylate (Norvasc) 5 mg DAILY ORAL 09/29/17 09:00 10/28/17 08:59 10/01/17 09:43 Atorvastatin Calcium (Lipitor) 10 mg BEDTIME ORAL 09/28/17 21:00 10/27/17 20:59 09/30/17 21:35 Azathioprine (Imuran) 50 mg DAILY ORAL 09/29/17 09:00 10/28/17 08:59 10/01/17 09:43 Aztreonam 0.5 gm/ Sodium Chloride 55 ml @ 110 mls/hr Q8H IVPB 09/29/17 10:00 10/06/17 09:59 10/01/17 17:14 Chlorhexidine Gluconate (Eloisa-Hex 2%) 1 applic DAILY@2000 TOPIC 09/28/17 22:30 10/28/17 22:29 09/30/17 21:35 Dextrose (Dextrose 50%) STAT PRN IV Hypoglycemia 09/28/17 19:15 10/27/17 19:14 Duloxetine HCl (Cymbalta) 30 mg DAILY ORAL 09/29/17 09:00 10/28/17 08:59 10/01/17 09:43 Epoetin Jose (Procrit (for non ESRD use)) 10,000 units MON-WED-FRI SUBQ 09/29/17 21:00 10/29/17 20:59 09/29/17 21:09 Heparin Sodium (Porcine) (Heparin 5000 units/ml) 5,000 units EVERY 12 HOURS SUBQ 09/28/17 21:00 10/27/17 20:59 Insulin Aspart (NovoLOG) BEFORE MEALS AND HS SUBQ 09/28/17 21:00 4/18/18 20:59 10/01/17 16:59 Lansoprazole (Prevacid) 30 mg DAILY ORAL 09/29/17 09:00 10/28/17 17:59 10/01/17 09:43 Metoprolol Succinate (Toprol XL) 50 mg Q12HR ORAL 09/28/17 21:00 10/27/17 20:59 10/01/17 09:43 Morphine Sulfate (Morphine Sulfate) 2 mg Q4H PRN IVP Moderate Pain (Pain Scale 4-6) 09/28/17 19:15 10/04/17 19:14 Nitroglycerin (Ntg) 0.4 mg Q5MIN X 3 DOSES PRN SL Prn Chest Pain 09/28/17 19:00 10/27/17 19:29 Ondansetron HCl (Zofran) 4 mg Q6H PRN IVP Nausea & Vomiting 09/28/17 19:15 10/27/17 19:14 Polyethylene Glycol (Miralax) 17 gm DAILYPRN PRN ORAL Constipation 09/28/17 19:15 10/27/17 19:14 Sevelamer Carbonate (Renvela) 800 mg THREE TIMES A DAY ORAL 09/29/17 09:00 10/28/17 08:59 10/01/17 17:14 Sodium Chloride 1,000 ml @ 100 mls/hr Q10H IVLG 09/28/17 20:00 10/28/17 19:59 10/01/17 17:13 Temazepam (Restoril) 15 mg HSPRN PRN ORAL Insomnia 09/28/17 21:00 10/04/17 20:59 Vancomycin HCl (Vanco rx to dose) 1 ea DAILYPRN PRN MISC RX TO DOSE 09/28/17 19:15 10/28/17 19:14 Allergies: Coded Allergies: CEFEPIME (Verified Allergy, Intermediate, Rash, 01/23/13) ROS Limited/Unobtainable: No Constitutional: Reports: no symptoms HEENT: Reports: no symptoms Cardiovascular: Reports: no symptoms Respiratory: Reports: no symptoms Gastrointestinal/Abdominal: Reports: no symptoms Genitourinary: Reports: no symptoms Neurologic/Psychiatric: Reports: no symptoms Subjective 62 YO M admitted with hematuria. S/P ultrasound guided cystostomy with suprapubic cath placement on 09/28/17.. Cover for Int Jordan Rosado Objective Last Vital Signs Date Time Temp Pulse Resp B/P (MAP) Pulse Ox O2 Delivery O2 Flow Rate FiO2 10/01/17 16:20 73 18 158/82 99 Room Air 10/01/17 12:00 98.0 98.0 10/01/17 06:50 21 09/29/17 19:52 3.0 Laboratory Tests Test 10/01/17 05:00 Random Vancomycin Level 15.2 ug/mL Intake and Output 09/30/17 10/01/17 19:00 07:00 Intake Total 580 ml 955 ml Output Total 400 ml Balance 180 ml 955 ml Intake Oral 480 ml IV Total 100 ml 955 ml Output Urine Total 400 ml # Voids 3 # Bowel Movements 1 1 Objective General Appearance: WD/WN, no apparent distress, alert EENT: PERRL/EOMI, normal ENT inspection Neck: non-tender, normal alignment, supple, normal inspection Cardiovascular: normal peripheral pulses, normal rate, regular rhythm, no gallop/murmur, no JVD Respiratory/Chest: chest wall non-tender, lungs clear, normal breath sounds, no respiratory distress, no accessory muscle use Abdomen: normal bowel sounds, non tender, soft, no organomegaly, no mass Extremities: normal range of motion 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 (5) CKD (chronic kidney disease), stage III Assessment & Plan: See nephrology note (6) Renal osteodystrophy (7) Gastritis (8) Coronary heart disease (9) BPH (benign prostatic hyperplasia) (10) Urine retention Assessment & Plan: due to edema of scrotum. S/P ultrasound cystostomy with suprapubic cath 09/28/17-see urology note. Assessment/Plan Discharge planning: [facility] DEE MAHER Oct 01, 2017 17:41
--- NOTE | 2017-10-01 18:21 | Diagnostic Imaging Report ---
Indication: 62-year-old male status post suprapubic cystostomy with inadvertent removal of such. Patient presented for cystostomy placement by bladder could not be adequately imaged with sonography. Technique: Noncontrast spiral acquisitions obtained through the pelvis. Multiplanar reconstructions generated. Total dose length product 616 mGycm. CTDIvol(s) 17 mGy. Dose reduction achieved using automated exposure control Comparison: 09/27/2017 Findings: Bladder is less distended than previously. Bladder diverticulum again demonstrated. Hydronephrotic left iliac fossa transplant kidney again demonstrated, demonstrates cysts. Small amount of subcutaneous contrast is seen from previous attempts at opacifying the cystostomy tract. Some subcutaneous gas bubbles are also likely related to the previous attempts. Again demonstrated is a peripenile hematoma. Central low attenuation within this could represent liquefied hematoma versus a small abscess. This low-attenuation area measures approximately 3.1 x 3.3 cm. Suprapubic ecchymosis and scrotal wall edema and ecchymosis appears significantly improved although considerable abnormality persists. The anterior bladder wall is somewhat thickened, possibly related to the prior cystostomy placement. The bones are unremarkable other than mild degenerative changes Impression: Bladder remains distended although less so than on prior study. Lack of bladder visibility on ultrasound probably due to inability to compress due to patient suprapubic tenderness. Anatomy is amenable to repeat cystoscopy placement Improved but persistent peripenile hematoma and ecchymosis. Note 3.1 x 3.3 cm low-attenuation collection inferior to the penile shaft within the perineum. This could indicate liquefying hematoma but developing abscess also a possibility. Persistent left iliac fossa transplant kidney hydronephrosis. The CT scanner at [facility] is accredited by the [employer] and the scans are performed using protocols designed to limit radiation exposure to as low as reasonably achievable to attain images of sufficient resolution adequate for diagnostic evaluation.
[2017-10-01] MEDS: Dyna-Hex 2% Top Sol 2oz TOPIC SCH (21:19)
[2017-10-01] MEDS: Epogen (for non ESRD use) SUBQ SCH (21:20)
[2017-10-02] VITALS: BP 131/55
[2017-10-02] MEDS: Aztreonam Inj 0.5 GM in NS 55 ML IVPB SCH ×2 (02:29→09:45)
[2017-10-02 04:00] VITALS: BP 149/67
[2017-10-02] MEDS: NovoLOG Insulin Flexpen SUBQ SCH ×4 (06:51→21:23)
[2017-10-02 07:32] LABS: ANION GAP 17 mmol/L (5-15); BLOOD UREA NITROGEN 61 mg/dL (7-18); CALCIUM 7.6 MG/DL (8.5-10.1); CARBON DIOXIDE 13 MMOL/L (21-32); CHLORIDE 105 MMOL/L (98-107); CREATININE 4.4 MG/DL (0.55-1.30); POTASSIUM 5.6 MMOL/L (3.5-5.1); SODIUM 135 MMOL/L (136-145)
[2017-10-02 07:41] LABS: % IRON SATURATION 21 % (15-50); IRON 27 ug/dL (50-175); TOTAL IRON BINDING CAPACITY 128 ug/dL (250-450)
[2017-10-02 07:47] LABS: BASOPHILS % (AUTO) 0.5 % (0.0-2.0); EOSINOPHILS % (AUTO) 6.1 % (0.0-3.0); HEMATOCRIT 25.7 % (42.0-52.0); HEMOGLOBIN 8.2 G/DL (14.2-18.0); LYMPHOCYTES % (AUTO) 14.6 % (20.0-45.0); MEAN CORPUSCULAR VOLUME 96 FL (80-99); MONOCYTES % (AUTO) 7.6 % (1.0-10.0); NEUTROPHILS % (AUTO) 71.2 % (45.0-75.0); PLATELET COUNT 176 K/UL (150-450); RED BLOOD COUNT 2.66 M/UL (4.70-6.10); RED CELL DISTRIBUTION WIDTH 14.8 % (11.6-14.8); WHITE BLOOD COUNT 7.8 K/UL (4.8-10.8)
[2017-10-02 08:00] VITALS: BP 166/90
[2017-10-02] MEDS: azaTHIOprine 50 MG TAB ORAL SCH (09:36)
[2017-10-02] MEDS: DULoxetine 30mg cap ORAL SCH (09:36)
[2017-10-02] MEDS: Metoprolol Succinate XL 50mg tab ORAL SCH ×2 (09:37→21:23)
[2017-10-02] MEDS: Heparin 5000 units/ml inj SUBQ SCH ×2 (09:38→19:54)
[2017-10-02 12:00] VITALS: BP 111/63
--- NOTE | 2017-10-02 12:20 | Infectious Diseases Prog Note ---
Assessment/Plan Assessment/Plan -Abx: IV Vancomcyin 09/27- Aztreonam 09/27- Ancef x1 09/28 Levaquin 09/27-09/28 Assessment: Hematuria Penile swelling w/ penile extensive hemorrhage and surrounding cellulitis; improving -s/p suprapubic cystostomy 09/28; re inserted 10/01 after patient pull it off -CT abd/p: Evidence of extensive hemorrhage around the penile shaft, extending into the adjacent subcutaneous fat. Marked edema and/or ecchymosis of the scrotal wall also demonstrated. There is also a small right hydrocele. Etiology of the hemorrhage uncertain, urethral injury a possibility. Per discussion with referring physician, there is evidence of cellulitis as well as urinary bleeding ; findings are concordant with this. There is no soft tissue gas to suggest infection with gas-forming organism. Markedly distended urinary bladder, which is less distended on the second acquisition. This probably indicates interim voiding with a considerable postvoidresidual. There is evidence of a large bladder diverticulum which may be in part postsurgical. Left iliac fossa transplant kidney hydronephrosis, which is somewhat but not completely improved on the second acquisition with the lower bladder volume. Presumably related to the bladder distention as no other obstructing lesion is demonstrated. Extensive perinephric edema, possibly related to the above. Possibility of superimposed nephritis should also be considered. Cholelithiasis, also previously reported. Evidence of prior abdominal wall hernia mesh repair -Bcx NTD Mild pyuria -ucx not sent afebrile, no leukocytosis CKD (previously on HD pre-transplant) s/p renal and pancreas Transplant ~10 yrs ago Recent Persistent Staph Epi bacteremia Jul 2017- AMY with no vegetations, likely from PICC line infection; s/p Rx -s/p PICC removal 08/09; cath cx <1+ CONS -08/06 Bcx 10/13 Staph epi/MRSE (labeld peripheral), Bcx 08/07 Neg 08/08 (line) 2/2 MRSE; 08/09 07/15 S.epi (however line was still in place); Bcx 08/11 2/ S. epi; 2/ 2 Neg -TTE: Thickened mitral valve leaflets with normal excursion. Mild mitral annulus and aortic root calcification. Pulmonic valve is well visualized. Normal tricuspid valve structure. No echodensity is seen on valves (vegetation) -AMY 08/19: no vegetations History of enterococcus bacteremia back in May. -07/15 E fecalis (Amp R, Vanco S) History of suicidal attempts in the past. History of myocardial infarction. History of anemia. History of colon polyps. Plan: -Switch IV vancomycin and Aztreonam #12/19 to PO Doxycycline 100mg bid and Levaquin 500mg q 48h for scrotal cellulitis; ok to discharge on this regimen ( Rx in chart) -09/10 SP Daptomycin #34 -f/u cx -Monitor CBC,/BMP, temperatures -Prior discharge, PICC line to be remove Thank you for this consultation. Will continue to follow along with you. Discussed with RN Subjective Allergies: Coded Allergies: CEFEPIME (Verified Allergy, Intermediate, Rash, 01/23/13) Subjective afebrile no leukocytosis Bcx NTD Objective Vital Signs Last 24 Hour Vital Signs Date Time Temp Pulse Resp B/P (MAP) Pulse Ox O2 Delivery O2 Flow Rate FiO2 10/02/17 09:37 78 166/90 10/02/17 09:37 78 166/90 10/02/17 08:08 71 18 Room Air 21 10/02/17 08:00 98.2 78 20 166/90 100 98.2 10/02/17 04:00 98.1 75 16 149/67 98 98.1 10/02/17 00:00 97.8 74 17 131/55 98 97.8 10/01/17 21:20 69 123/59 10/01/17 20:00 97.3 69 17 123/59 92 97.3 10/01/17 19:58 65 18 Room Air 21 10/01/17 16:20 73 18 158/82 99 Room Air 10/01/17 16:15 79 18 160/97 99 Room Air 10/01/17 16:10 72 20 157/83 100 Room Air 10/01/17 16:05 69 20 153/77 100 Room Air 10/01/17 16:00 69 20 161/78 100 Room Air 10/01/17 15:43 68 19 10/01/17 15:10 78 20 157/81 100 Room Air 10/01/17 15:05 79 20 161/81 100 Room Air 10/01/17 15:00 80 20 157/77 100 Room Air 10/01/17 13:38 75 16 Height (Feet): 5 Height (Inches): 9.00 Weight (Pounds): 190 Objective General Appearance: WD/WN Lines, tubes and drains: peripheral, endotracheal tube HEENT: normocephalic, atraumatic, mucous membranes moist, PERRL Neck: non-tender, normal inspection Respiratory/Chest: chest wall non-tender, normal breath sounds Cardiovascular/Chest: normal peripheral pulses Abdomen: normal bowel sounds Genitourinary/Rectal: genital area (penis,s crotum) -+ swelling, TTP, warmth; suprabpubic cath in place; celluitis and TTP improving Skin Exam: normal pigmentation 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 Laboratory Tests Test 10/02/17 06:15 White Blood Count 7.8 K/UL (4.8-10.8) Red Blood Count 2.66 M/UL (4.70-6.10) L Hemoglobin 8.2 G/DL (14.2-18.0) L Hematocrit 25.7 % (42.0-52.0) L Mean Corpuscular Volume 96 FL (80-99) Mean Corpuscular Hemoglobin 30.9 PG (27.0-31.0) Mean Corpuscular Hemoglobin Concent 32.0 G/DL (32.0-36.0) Red Cell Distribution Width 14.8 % (11.6-14.8) Platelet Count 176 K/UL (150-450) Mean Platelet Volume 6.2 FL (6.5-10.1) L Neutrophils (%) (Auto) 71.2 % (45.0-75.0) Lymphocytes (%) (Auto) 14.6 % (20.0-45.0) L Monocytes (%) (Auto) 7.6 % (1.0-10.0) Eosinophils (%) (Auto) 6.1 % (0.0-3.0) H Basophils (%) (Auto) 0.5 % (0.0-2.0) Sodium Level 135 MMOL/L (136-145) L Potassium Level 5.6 MMOL/L (3.5-5.1) H Chloride Level 105 MMOL/L (98-107) Carbon Dioxide Level 13 MMOL/L (21-32) L Anion Gap 17 mmol/L (5-15) H Blood Urea Nitrogen 61 mg/dL (7-18) H Creatinine 4.4 MG/DL (0.55-1.30) H Estimat Glomerular Filtration Rate 13.7 mL/min (>60) Glucose Level 489 MG/DL (74-106) H Calcium Level 7.6 MG/DL (8.5-10.1) L Iron Level 27 ug/dL (50-175) L Total Iron Binding Capacity 128 ug/dL (250-450) L Percent Iron Saturation 21 % (15-50) Unsaturated Iron Binding 101 ug/dL (112-346) L Current Medications Medications (Trade) Dose Ordered Sig/Dunia Route PRN Reason Start Time Stop Time Status Last Admin Dose Admin Acetaminophen (Tylenol) 650 mg Q4H PRN ORAL T>100.5 09/28/17 19:15 10/27/17 19:14 Albuterol/ Ipratropium (Albuterol/ Ipratropium) 3 ml Q4H PRN HHN Shortness of Breath 10/01/17 15:15 10/05/17 15:15 Amlodipine Besylate (Norvasc) 5 mg DAILY ORAL 09/29/17 09:00 10/28/17 08:59 10/02/17 09:37 Atorvastatin Calcium (Lipitor) 10 mg BEDTIME ORAL 09/28/17 21:00 10/27/17 20:59 10/01/17 21:20 Azathioprine (Imuran) 50 mg DAILY ORAL 09/29/17 09:00 10/28/17 08:59 10/02/17 09:36 Aztreonam 0.5 gm/ Sodium Chloride 55 ml @ 110 mls/hr Q8H IVPB 09/29/17 10:00 10/06/17 09:59 10/02/17 09:45 Chlorhexidine Gluconate (Eloisa-Hex 2%) 1 applic DAILY@2000 TOPIC 09/28/17 22:30 10/28/17 22:29 10/01/17 21:19 Dextrose (Dextrose 50%) STAT PRN IV Hypoglycemia 09/28/17 19:15 10/27/17 19:14 Duloxetine HCl (Cymbalta) 30 mg DAILY ORAL 09/29/17 09:00 10/28/17 08:59 10/02/17 09:36 Epoetin Jose (Procrit (for non ESRD use)) 10,000 units MON-WED-FRI SUBQ 09/29/17 21:00 10/29/17 20:59 10/01/17 21:20 Heparin Sodium (Porcine) (Heparin 5000 units/ml) 5,000 units EVERY 12 HOURS SUBQ 09/28/17 21:00 10/27/17 20:59 Insulin Aspart (NovoLOG) BEFORE MEALS AND HS SUBQ 09/28/17 21:00 10/27/17 20:59 10/02/17 11:49 Lansoprazole (Prevacid) 30 mg DAILY ORAL 09/29/17 09:00 10/28/17 17:59 10/02/17 09:36 Metoprolol Succinate (Toprol XL) 50 mg Q12HR ORAL 09/28/17 21:00 10/27/17 20:59 10/02/17 09:37 Morphine Sulfate (Morphine Sulfate) 2 mg Q4H PRN IVP Moderate Pain (Pain Scale 4-6) 09/28/17 19:15 10/04/17 19:14 Nitroglycerin (Ntg) 0.4 mg Q5MIN X 3 DOSES PRN SL Prn Chest Pain 09/28/17 19:00 10/27/17 19:29 Ondansetron HCl (Zofran) 4 mg Q6H PRN IVP Nausea & Vomiting 09/28/17 19:15 10/27/17 19:14 Polyethylene Glycol (Miralax) 17 gm DAILYPRN PRN ORAL Constipation 09/28/17 19:15 10/27/17 19:14 Sevelamer Carbonate (Renvela) 800 mg THREE TIMES A DAY ORAL 09/29/17 09:00 10/28/17 08:59 10/02/17 09:36 Sodium Polystyrene Sulfonate (Kayexalate) 30 gm ONCE ONCE ORAL 10/02/17 12:45 10/02/17 12:46 Sodium Chloride 1,000 ml @ 100 mls/hr Q10H IVLG 09/28/17 20:00 10/28/17 19:59 10/02/17 04:00 Temazepam (Restoril) 15 mg HSPRN PRN ORAL Insomnia 09/28/17 21:00 10/04/17 20:59 Vancomycin HCl (Vanco rx to dose) 1 ea DAILYPRN PRN MISC RX TO DOSE 09/28/17 19:15 10/28/17 19:14 Monique Read M.D. Oct 02, 2017 12:20
[2017-10-02] MEDS ORDERED: Sodium Polystyrene Sulfonate 15gm Powder ORAL ONE ×2 (12:45→14:00)
--- NOTE | 2017-10-02 13:14 | Pulmonology Progress Note ---
Assessment/Plan Assessment/Plan ASSESSMENT Hematuria Acute renal failure on chronic kidney disease stage 3 Diabetic nephropathy dehydration Urethral obstruction s/p 09/27 suprapubic cystostomy with placement of a 14 Romanian pigtail drainage catheter s/p reinsertion of s/p catheter 10/01 Scrotal cellulitis HTN DM Hyperglycemia 2 to DM Anemia of chronic kidney disease hx of renal and pancreas transplant Hx of CVA Coagulopathy BPH MDD PLAN OF CARE MS floor CT A/P noted Urology consult appreciated s/p cystostomy by IR ( for urethral obstruction) , which patient pulled out CT pelvis 10/01 noted s/p reinsertion of s/p catheter 10/01 nephro follows IVF monitor renal parameters, correct lytes as needed, avoid nephrotoxic Kayexalate Flomax abx ID follows monitor HH, s/p blood transfusion, anemia w/up c/w anemia of chronic kidney disease EPO BP management with CCB and BB BS management with SSI and optimize as needed DVT GI prophylaxis O2 HHN prn Continue statin Coagulopathy corrected with FFP transfusion, INR down dc plan per PMD case discussed and evaluated by supervising physician Subjective Allergies: Coded Allergies: CEFEPIME (Verified Allergy, Intermediate, Rash, 01/23/13) Subjective patient pulled out his s/p catheter which was originally inserted 09/27 s/p reinsertion 10/01 s/p reinsertion K-5.6 Objective Last 24 Hour Vital Signs Date Time Temp Pulse Resp B/P (MAP) Pulse Ox O2 Delivery O2 Flow Rate FiO2 10/02/17 12:00 98.4 73 20 111/63 100 98.4 10/02/17 09:37 78 166/90 10/02/17 09:37 78 166/90 10/02/17 08:08 71 18 Room Air 21 10/02/17 08:00 98.2 78 20 166/90 100 98.2 10/02/17 04:00 98.1 75 16 149/67 98 98.1 10/02/17 00:00 97.8 74 17 131/55 98 97.8 10/01/17 21:20 69 123/59 10/01/17 20:00 97.3 69 17 123/59 92 97.3 10/01/17 19:58 65 18 Room Air 21 10/01/17 16:20 73 18 158/82 99 Room Air 10/01/17 16:15 79 18 160/97 99 Room Air 10/01/17 16:10 72 20 157/83 100 Room Air 10/01/17 16:05 69 20 153/77 100 Room Air 10/01/17 16:00 69 20 161/78 100 Room Air 10/01/17 15:43 68 19 10/01/17 15:10 78 20 157/81 100 Room Air 10/01/17 15:05 79 20 161/81 100 Room Air 10/01/17 15:00 80 20 157/77 100 Room Air 10/01/17 13:38 75 16 Intake and Output 10/01/17 10/02/17 18:59 06:59 Intake Total 360 ml 300 ml Output Total 670 ml 1700 ml Balance -310 ml -1400 ml Intake Oral 360 ml Other 300 ml Output Urine Total 670 ml 1700 ml # Voids 3 Objective General Appearance: no acute distress HEENT: normocephalic, atraumatic, anicteric, mucous membranes moist, other - L eye blind Respiratory/Chest: chest wall non-tender, normal breath sounds, no respiratory distress Cardiovascular: normal peripheral pulses, normal rate, no JVD Abdomen: normal bowel sounds, soft, non tender, s/p catheter with clear slightly pinkish tinge urine Skin: other Neurologic/Psychiatric: alert - confused , responsive Musculoskeletal: normal muscle bulk Laboratory Tests 10/02/17 06:15: White Blood Count 7.8, Red Blood Count 2.66L, Hemoglobin 8.2L, Hematocrit 25.7L , Mean Corpuscular Volume 96, Mean Corpuscular Hemoglobin 30.9, Mean Corpuscular Hemoglobin Concent 32.0, Red Cell Distribution Width 14.8, Platelet Count 176, Mean Platelet Volume 6.2L, Neutrophils (%) (Auto) 71.2, Lymphocytes ( %) (Auto) 14.6L, Monocytes (%) (Auto) 7.6, Eosinophils (%) (Auto) 6.1H, Basophils (%) (Auto) 0.5, Sodium Level 135L, Potassium Level 5.6H, Chloride Level 105, Carbon Dioxide Level 13L, Anion Gap 17H, Blood Urea Nitrogen 61H, Creatinine 4.4H, Estimat Glomerular Filtration Rate 13.7, Glucose Level 489H, Calcium Level 7.6L, Iron Level 27L, Total Iron Binding Capacity 128L, Percent Iron Saturation 21, Unsaturated Iron Binding 101L Current Medications Medications (Trade) Dose Ordered Sig/Dunia Route PRN Reason Start Time Stop Time Status Last Admin Dose Admin Acetaminophen (Tylenol) 650 mg Q4H PRN ORAL T>100.5 09/28/17 19:15 10/27/17 19:14 Albuterol/ Ipratropium (Albuterol/ Ipratropium) 3 ml Q4H PRN HHN Shortness of Breath 10/01/17 15:15 10/05/17 15:15 Amlodipine Besylate (Norvasc) 5 mg DAILY ORAL 09/29/17 09:00 10/28/17 08:59 10/02/17 09:37 Atorvastatin Calcium (Lipitor) 10 mg BEDTIME ORAL 09/28/17 21:00 10/27/17 20:59 10/01/17 21:20 Azathioprine (Imuran) 50 mg DAILY ORAL 09/29/17 09:00 10/28/17 08:59 10/02/17 09:36 Chlorhexidine Gluconate (Eloisa-Hex 2%) 1 applic DAILY@2000 TOPIC 09/28/17 22:30 10/28/17 22:29 10/01/17 21:19 Dextrose (Dextrose 50%) STAT PRN IV Hypoglycemia 09/28/17 19:15 10/27/17 19:14 Doxycycline Monohydrate (Vibramycin) 100 mg EVERY 12 HOURS ORAL 10/02/17 21:00 10/09/17 20:59 Duloxetine HCl (Cymbalta) 30 mg DAILY ORAL 09/29/17 09:00 10/28/17 08:59 10/02/17 09:36 Epoetin Jose (Procrit (for non ESRD use)) 10,000 units MON-WED-FRI SUBQ 09/29/17 21:00 10/29/17 20:59 10/01/17 21:20 Heparin Sodium (Porcine) (Heparin 5000 units/ml) 5,000 units EVERY 12 HOURS SUBQ 09/28/17 21:00 10/27/17 20:59 Insulin Aspart (NovoLOG) BEFORE MEALS AND HS SUBQ 09/28/17 21:00 10/27/17 20:59 10/02/17 11:49 Lansoprazole (Prevacid) 30 mg DAILY ORAL 09/29/17 09:00 10/28/17 17:59 10/02/17 09:36 Levofloxacin (Levaquin) 500 mg EVERY OTHER DAY ORAL 10/02/17 14:00 10/09/17 13:59 Metoprolol Succinate (Toprol XL) 50 mg Q12HR ORAL 09/28/17 21:00 10/27/17 20:59 10/02/17 09:37 Morphine Sulfate (Morphine Sulfate) 2 mg Q4H PRN IVP Moderate Pain (Pain Scale 4-6) 09/28/17 19:15 10/04/17 19:14 Nitroglycerin (Ntg) 0.4 mg Q5MIN X 3 DOSES PRN SL Prn Chest Pain 09/28/17 19:00 10/27/17 19:29 Ondansetron HCl (Zofran) 4 mg Q6H PRN IVP Nausea & Vomiting 09/28/17 19:15 10/27/17 19:14 Polyethylene Glycol (Miralax) 17 gm DAILYPRN PRN ORAL Constipation 09/28/17 19:15 10/27/17 19:14 Sevelamer Carbonate (Renvela) 800 mg THREE TIMES A DAY ORAL 09/29/17 09:00 10/28/17 08:59 10/02/17 09:36 Sodium Chloride 1,000 ml @ 100 mls/hr Q10H IVLG 09/28/17 20:00 10/28/17 19:59 10/02/17 04:00 Temazepam (Restoril) 15 mg HSPRN PRN ORAL Insomnia 09/28/17 21:00 10/04/17 20:59 Catherine Griffin NP ([facility]anchtein) Oct 02, 2017 13:14
[2017-10-02] MEDS ORDERED: Levofloxacin 500mg tab ORAL SCH (14:00)
--- NOTE | 2017-10-02 15:05 | Internal Med Progress Note ---
Subjective Date of Service: Oct 02, 2017 Physician Name Dee Maher Attending Physician Christopher Rosado MD Current Medications Medications (Trade) Dose Ordered Sig/Dunia Route PRN Reason Start Time Stop Time Status Last Admin Dose Admin Acetaminophen (Tylenol) 650 mg Q4H PRN ORAL T>100.5 09/28/17 19:15 10/27/17 19:14 Albuterol/ Ipratropium (Albuterol/ Ipratropium) 3 ml Q4H PRN HHN Shortness of Breath 10/01/17 15:15 10/05/17 15:15 Amlodipine Besylate (Norvasc) 5 mg DAILY ORAL 09/29/17 09:00 10/28/17 08:59 10/02/17 09:37 Atorvastatin Calcium (Lipitor) 10 mg BEDTIME ORAL 09/28/17 21:00 10/27/17 20:59 10/01/17 21:20 Azathioprine (Imuran) 50 mg DAILY ORAL 09/29/17 09:00 10/28/17 08:59 10/02/17 09:36 Chlorhexidine Gluconate (Eloisa-Hex 2%) 1 applic DAILY@1999 TOPIC 09/28/17 22:30 10/28/17 22:29 10/01/17 21:19 Dextrose (Dextrose 50%) STAT PRN IV Hypoglycemia 09/28/17 19:15 10/27/17 19:14 Doxycycline Monohydrate (Vibramycin) 100 mg EVERY 12 HOURS ORAL 10/02/17 21:00 10/09/17 20:59 Duloxetine HCl (Cymbalta) 30 mg DAILY ORAL 09/29/17 09:00 10/28/17 08:59 10/02/17 09:36 Epoetin Jose (Procrit (for non ESRD use)) 10,000 units MON-WED-FRI SUBQ 09/29/17 21:00 10/29/17 20:59 10/01/17 21:20 Heparin Sodium (Porcine) (Heparin 5000 units/ml) 5,000 units EVERY 12 HOURS SUBQ 09/28/17 21:00 10/27/17 20:59 Insulin Aspart (NovoLOG) BEFORE MEALS AND HS SUBQ 09/28/17 21:00 10/27/17 20:59 10/02/17 11:49 Lansoprazole (Prevacid) 30 mg DAILY ORAL 09/29/17 09:00 10/28/17 17:59 10/02/17 09:36 Levofloxacin (Levaquin) 500 mg EVERY OTHER DAY ORAL 10/02/17 14:00 10/09/17 13:59 10/02/17 14:44 Metoprolol Succinate (Toprol XL) 50 mg Q12HR ORAL 09/28/17 21:00 10/27/17 20:59 10/02/17 09:37 Morphine Sulfate (Morphine Sulfate) 2 mg Q4H PRN IVP Moderate Pain (Pain Scale 4-6) 09/28/17 19:15 10/04/17 19:14 Nitroglycerin (Ntg) 0.4 mg Q5MIN X 3 DOSES PRN SL Prn Chest Pain 09/28/17 19:00 10/27/17 19:29 Ondansetron HCl (Zofran) 4 mg Q6H PRN IVP Nausea & Vomiting 09/28/17 19:15 10/27/17 19:14 Polyethylene Glycol (Miralax) 17 gm DAILYPRN PRN ORAL Constipation 09/28/17 19:15 10/27/17 19:14 Sevelamer Carbonate (Renvela) 800 mg THREE TIMES A DAY ORAL 09/29/17 09:00 10/28/17 08:59 10/02/17 13:15 Sodium Chloride 1,000 ml @ 100 mls/hr Q10H IVLG 09/28/17 20:00 10/28/17 19:59 10/02/17 04:00 Temazepam (Restoril) 15 mg HSPRN PRN ORAL Insomnia 09/28/17 21:00 10/04/17 20:59 Allergies: Coded Allergies: CEFEPIME (Verified Allergy, Intermediate, Rash, 01/23/13) ROS Limited/Unobtainable: No Constitutional: Reports: no symptoms HEENT: Reports: no symptoms Cardiovascular: Reports: no symptoms Respiratory: Reports: no symptoms Gastrointestinal/Abdominal: Reports: no symptoms Genitourinary: Reports: no symptoms Neurologic/Psychiatric: Reports: no symptoms Subjective 62 YO M admitted with hematuria. S/P ultrasound guided cystostomy with suprapubic cath placement on 09/28/17.. Cover for Int Pierre-Dr Rosado Objective Last Vital Signs Date Time Temp Pulse Resp B/P (MAP) Pulse Ox O2 Delivery O2 Flow Rate FiO2 10/02/17 12:00 98.4 73 20 111/63 100 98.4 10/02/17 08:08 Room Air 21 09/29/17 19:52 3.0 Laboratory Tests Test 10/02/17 06:15 White Blood Count 7.8 K/UL (4.8-10.8) Red Blood Count 2.66 M/UL (4.70-6.10) L Hemoglobin 8.2 G/DL (14.2-18.0) L Hematocrit 25.7 % (42.0-52.0) L Mean Corpuscular Volume 96 FL (80-99) Mean Corpuscular Hemoglobin 30.9 PG (27.0-31.0) Mean Corpuscular Hemoglobin Concent 32.0 G/DL (32.0-36.0) Red Cell Distribution Width 14.8 % (11.6-14.8) Platelet Count 176 K/UL (150-450) Mean Platelet Volume 6.2 FL (6.5-10.1) L Neutrophils (%) (Auto) 71.2 % (45.0-75.0) Lymphocytes (%) (Auto) 14.6 % (20.0-45.0) L Monocytes (%) (Auto) 7.6 % (1.0-10.0) Eosinophils (%) (Auto) 6.1 % (0.0-3.0) H Basophils (%) (Auto) 0.5 % (0.0-2.0) Sodium Level 135 MMOL/L (136-145) L Potassium Level 5.6 MMOL/L (3.5-5.1) H Chloride Level 105 MMOL/L (98-107) Carbon Dioxide Level 13 MMOL/L (21-32) L Anion Gap 17 mmol/L (5-15) H Blood Urea Nitrogen 61 mg/dL (7-18) H Creatinine 4.4 MG/DL (0.55-1.30) H Estimat Glomerular Filtration Rate 13.7 mL/min (>60) Glucose Level 489 MG/DL (74-106) H Calcium Level 7.6 MG/DL (8.5-10.1) L Iron Level 27 ug/dL (50-175) L Total Iron Binding Capacity 128 ug/dL (250-450) L Percent Iron Saturation 21 % (15-50) Unsaturated Iron Binding 101 ug/dL (112-346) L Intake and Output 10/01/17 10/02/17 19:00 07:00 Intake Total 360 ml 400 ml Output Total 670 ml 1700 ml Balance -310 ml -1300 ml Intake Oral 360 ml IV Total 100 ml Other 300 ml Output Urine Total 670 ml 1700 ml # Voids 3 Objective General Appearance: WD/WN, no apparent distress, alert EENT: PERRL/EOMI, normal ENT inspection Neck: non-tender, normal alignment, supple, normal inspection Cardiovascular: normal peripheral pulses, normal rate, regular rhythm, no gallop/murmur, no JVD Respiratory/Chest: chest wall non-tender, lungs clear, normal breath sounds, no respiratory distress, no accessory muscle use Abdomen: normal bowel sounds, non tender, soft, no organomegaly, no mass Extremities: normal range of motion Neurologic: acid bath mixer II-XII grossly normal, no motor/sensory deficits Skin: normal pigmentation, warm/dry Assessment/Plan Problem List: (1) Scrotal edema (2) Hyperparathyroidism (3) Hematuria (4) DM (diabetes mellitus) Assessment & Plan: Continue novolog sliding scale. (5) CKD (chronic kidney disease), stage III Assessment & Plan: See nephrology note (6) Renal osteodystrophy (7) Gastritis (8) Coronary heart disease (9) BPH (benign prostatic hyperplasia) (10) Urine retention Assessment & Plan: due to edema of scrotum. S/P ultrasound cystostomy with suprapubic cath 09/28/17-see urology note. (11) Anemia Assessment & Plan: S/P transfusion 2 units PRBC [id number]. (12) Coagulopathy Assessment & Plan: S/P transfusion 4 units FFP 09/29/17. Assessment/Plan Discharge planning: [facility] DEE MAHER Oct 02, 2017 15:05
[2017-10-02 15:45] VITALS: BP 131/73
--- NOTE | 2017-10-02 16:18 | Nephrology Progress Note ---
Assessment/Plan Problem List: (1) Hydronephrosis (2) BPH (benign prostatic hypertrophy) (3) Nephropathy, diabetic (4) CKD (chronic kidney disease), stage III Assessment (1) CKD (chronic kidney disease), stage III, superimposed acute- Cr unchanged since last admit Cr down to 4.4 from 5.7 (2) Dehydration- Partly due to hyperglycemia (3) Hyperglycemia due to type 2 diabetes mellitus (4) BPH (benign prostatic hypertrophy) (5) Nephropathy, diabetic (6) History of simultaneous kidney and pancreas transplant (7) UTI (urinary tract infection) (8) Anemia of CKD Plan Had suprapubic cath upon admission avoid nephrotoxics BP and BS control- Flomax PO- monitor renal parameters Anemia paniagua EPO SQ Subjective ROS Limited/Unobtainable: No Constitutional: Reports: malaise, weakness Objective Objective Last 24 Hour Vital Signs Date Time Temp Pulse Resp B/P (MAP) Pulse Ox O2 Delivery O2 Flow Rate FiO2 10/02/17 15:45 97.1 76 20 131/73 100 97.1 10/02/17 12:00 98.4 73 20 111/63 100 98.4 10/02/17 09:37 78 166/90 10/02/17 09:37 78 166/90 10/02/17 08:08 71 18 Room Air 21 10/02/17 08:00 98.2 78 20 166/90 100 98.2 10/02/17 04:00 98.1 75 16 149/67 98 98.1 10/02/17 00:00 97.8 74 17 131/55 98 97.8 10/01/17 21:20 69 123/59 10/01/17 20:00 97.3 69 17 123/59 92 97.3 10/01/17 19:58 65 18 Room Air 21 10/01/17 16:20 73 18 158/82 99 Room Air 10/01/17 16:15 79 18 160/97 99 Room Air Intake and Output 10/01/17 10/02/17 19:00 07:00 Intake Total 360 ml 400 ml Output Total 670 ml 1700 ml Balance -310 ml -1300 ml Intake Oral 360 ml IV Total 100 ml Other 300 ml Output Urine Total 670 ml 1700 ml # Voids 3 Laboratory Tests 10/02/17 06:15: White Blood Count 7.8, Red Blood Count 2.66L, Hemoglobin 8.2L, Hematocrit 25.7L , Mean Corpuscular Volume 96, Mean Corpuscular Hemoglobin 30.9, Mean Corpuscular Hemoglobin Concent 32.0, Red Cell Distribution Width 14.8, Platelet Count 176, Mean Platelet Volume 6.2L, Neutrophils (%) (Auto) 71.2, Lymphocytes ( %) (Auto) 14.6L, Monocytes (%) (Auto) 7.6, Eosinophils (%) (Auto) 6.1H, Basophils (%) (Auto) 0.5, Sodium Level 135L, Potassium Level 5.6H, Chloride Level 105, Carbon Dioxide Level 13L, Anion Gap 17H, Blood Urea Nitrogen 61H, Creatinine 4.4H, Estimat Glomerular Filtration Rate 13.7, Glucose Level 489H, Calcium Level 7.6L, Iron Level 27L, Total Iron Binding Capacity 128L, Percent Iron Saturation 21, Unsaturated Iron Binding 101L Height (Feet): 5 Height (Inches): 9.00 Weight (Pounds): 190 General Appearance: no apparent distress Cardiovascular: arrhythmia Respiratory/Chest: decreased breath sounds Abdomen: soft Objective no change BERT ALONSO Oct 02, 2017 16:18
[2017-10-02 20:00] VITALS: BP 131/58
[2017-10-02] MEDS: Dyna-Hex 2% Top Sol 2oz TOPIC SCH (21:23)
[2017-10-03] VITALS: BP 149/65
[2017-10-03 04:00] VITALS: BP 147/79
[2017-10-03] MEDS: NovoLOG Insulin Flexpen SUBQ SCH ×5 (06:39→16:30)
[2017-10-03 07:19] LABS: BASOPHILS % (AUTO) 0.4 % (0.0-2.0); EOSINOPHILS % (AUTO) 5.9 % (0.0-3.0); HEMATOCRIT 26.4 % (42.0-52.0); HEMOGLOBIN 8.7 G/DL (14.2-18.0); MEAN CORPUSCULAR VOLUME 95 FL (80-99); MONOCYTES % (AUTO) 9.7 % (1.0-10.0); PLATELET COUNT 204 K/UL (150-450); RED BLOOD COUNT 2.78 M/UL (4.70-6.10); RED CELL DISTRIBUTION WIDTH 14.7 % (11.6-14.8); WHITE BLOOD COUNT 8.2 K/UL (4.8-10.8)
[2017-10-03 08:00] VITALS: BP 154/73
[2017-10-03 08:15] LABS: PHOSPHORUS 3.5 MG/DL (2.5-4.9)
[2017-10-03 08:28] LABS: ALANINE AMINOTRANSFERASE 11 U/L (12-78); ALBUMIN 1.9 G/DL (3.4-5.0); ALBUMIN/GLOBULIN RATIO 0.5 (1.0-2.7); ALKALINE PHOSPHATASE 76 U/L (46-116); ANION GAP 16 mmol/L (5-15); ASPARTATE AMINO TRANSFERASE 11 U/L (15-37); BILIRUBIN,TOTAL 0.3 MG/DL (0.2-1.0); BLOOD UREA NITROGEN 58 mg/dL (7-18); CARBON DIOXIDE 15 MMOL/L (21-32); CHLORIDE 106 MMOL/L (98-107); CREATININE 4.3 MG/DL (0.55-1.30); POTASSIUM 4.8 MMOL/L (3.5-5.1); SODIUM 137 MMOL/L (136-145)
[2017-10-03] MEDS ORDERED: Levemir Flexpen SUBQ SCH (09:00)
[2017-10-03] MEDS: azaTHIOprine 50 MG TAB ORAL SCH (09:06)
[2017-10-03] MEDS: DULoxetine 30mg cap ORAL SCH (09:06)
[2017-10-03] MEDS: Metoprolol Succinate XL 50mg tab ORAL SCH (09:07)
[2017-10-03] MEDS: Heparin 5000 units/ml inj SUBQ SCH (09:08)
--- NOTE | 2017-10-03 09:22 | Nephrology Progress Note ---
Assessment/Plan Problem List: (1) Hydronephrosis (2) BPH (benign prostatic hypertrophy) (3) Nephropathy, diabetic (4) CKD (chronic kidney disease), stage III Assessment (1) CKD (chronic kidney disease), stage III, superimposed acute- Cr unchanged since last admit Cr down to 4.4 from 5.7 (2) Dehydration- Partly due to hyperglycemia (3) Hyperglycemia due to type 2 diabetes mellitus (4) BPH (benign prostatic hypertrophy) (5) Nephropathy, diabetic (6) History of simultaneous kidney and pancreas transplant (7) UTI (urinary tract infection) (8) Anemia of CKD Plan mag supp Had suprapubic cath upon admission avoid nephrotoxics BP and BS control- Flomax PO- monitor renal parameters Anemia paniagua EPO SQ Subjective ROS Limited/Unobtainable: No Objective Objective Last 24 Hour Vital Signs Date Time Temp Pulse Resp B/P (MAP) Pulse Ox O2 Delivery O2 Flow Rate FiO2 10/03/17 09:07 86 154/73 10/03/17 09:07 86 154/73 10/03/17 08:00 98.1 86 18 154/73 98 Room Air 98.1 10/03/17 07:50 75 18 Room Air 10/03/17 04:54 Room Air 10/03/17 04:00 97.0 76 20 147/79 97 Room Air 97.0 10/03/17 00:43 Room Air 10/03/17 00:00 98.4 78 19 149/65 96 Room Air 98.4 10/02/17 21:23 74 131/58 10/02/17 20:00 Room Air 10/02/17 20:00 98.2 74 18 131/58 97 Room Air 98.2 10/02/17 19:22 78 18 Room Air 10/02/17 15:45 97.1 76 20 131/73 100 97.1 10/02/17 12:00 98.4 73 20 111/63 100 98.4 10/02/17 09:37 78 166/90 10/02/17 09:37 78 166/90 Intake and Output 10/02/17 10/03/17 19:00 07:00 Intake Total 1785 ml 1100 ml Output Total 1300 ml 1250 ml Balance 485 ml -150 ml Intake Oral 830 ml IV Total 955 ml 1100 ml Output Urine Total 1300 ml 1250 ml # Bowel Movements 1 Laboratory Tests 10/03/17 05:10: White Blood Count 8.2, Red Blood Count 2.78L, Hemoglobin 8.7L, Hematocrit 26.4L , Mean Corpuscular Volume 95, Mean Corpuscular Hemoglobin 31.3H, Mean Corpuscular Hemoglobin Concent 32.9, Red Cell Distribution Width 14.7, Platelet Count 204, Mean Platelet Volume 5.4L, Neutrophils (%) (Auto) 69.0, Lymphocytes ( %) (Auto) 15.0L, Monocytes (%) (Auto) 9.7, Eosinophils (%) (Auto) 5.9H, Basophils (%) (Auto) 0.4, Sodium Level 137, Potassium Level 4.8, Chloride Level 106, Carbon Dioxide Level 15L, Anion Gap 16H, Blood Urea Nitrogen 58H, Creatinine 4.3H, Estimat Glomerular Filtration Rate 14.0, Glucose Level 393H, Uric Acid 5.8, Calcium Level 8.0L, Phosphorus Level 3.5, Magnesium Level 1.4L, Total Bilirubin 0.3, Aspartate Amino Transf (AST/SGOT) 11L, Alanine Aminotransferase (ALT/SGPT) 11L, Alkaline Phosphatase 76, C-Reactive Protein, Quantitative 7.7H, Pro-B-Type Natriuretic Peptide 3617H, Total Protein 5.9L, Albumin 1.9L, Globulin 4.0, Albumin/Globulin Ratio 0.5L, Random Vancomycin Level 17.4 Height (Feet): 5 Height (Inches): 9.00 Weight (Pounds): 190 General Appearance: no apparent distress Respiratory/Chest: decreased breath sounds Abdomen: soft Objective no change BERT ALONSO Oct 03, 2017 09:22
--- NOTE | 2017-10-03 11:24 | Pulmonology Progress Note ---
Assessment/Plan Assessment/Plan ASSESSMENT Hematuria Acute renal failure on chronic kidney disease stage 3 Diabetic nephropathy dehydration Urethral obstruction s/p suprapubic cystostomy with placement of a 14 Martiniquais pigtail drainage catheter s/p reinsertion of s/p catheter 10/01 Scrotal cellulitis HTN DM Hyperglycemia 2 to DM Anemia of chronic kidney disease hx of renal and pancreas transplant Hx of CVA Coagulopathy BPH MDD hypo Mg PLAN OF CARE MS floor CT A/P noted Urology consult appreciated s/p cystostomy by IR ( for urethral obstruction) , which patient pulled out s/p reinsertion of s/p catheter nephro follows IVF monitor renal parameters, correct lytes as needed, avoid nephrotoxic creat down to 4.3 Mg replaced as per nephro Flomax abx ID follows monitor HH, s/p blood transfusion, anemia w/up c/w anemia of chronic disease EPO HH at baseline BP management with CCB and BB BS management with SSI and optimize as needed DVT GI prophylaxis O2 HHN prn Continue statin Coagulopathy corrected with FFP transfusion, INR down dc plan per PMD case discussed and evaluated by supervising physician Subjective Allergies: Coded Allergies: CEFEPIME (Verified Allergy, Intermediate, Rash, 01/23/13) Subjective patient pulled out his s/p catheter initially inserted 09/27 s/p catheter reinserted no further hematuria creat down to 4.3 low Mg this am -1.4 Objective Last 24 Hour Vital Signs Date Time Temp Pulse Resp B/P (MAP) Pulse Ox O2 Delivery O2 Flow Rate FiO2 10/03/17 09:07 86 154/73 10/03/17 09:07 86 154/73 10/03/17 08:00 98.1 86 18 154/73 98 Room Air 98.1 10/03/17 07:50 75 18 Room Air 10/03/17 04:54 Room Air 10/03/17 04:00 97.0 76 20 147/79 97 Room Air 97.0 10/03/17 00:43 Room Air 10/03/17 00:00 98.4 78 19 149/65 96 Room Air 98.4 10/02/17 21:23 74 131/58 10/02/17 20:00 Room Air 10/02/17 20:00 98.2 74 18 131/58 97 Room Air 98.2 10/02/17 19:22 78 18 Room Air 10/02/17 15:45 97.1 76 20 131/73 100 97.1 10/02/17 12:00 98.4 73 20 111/63 100 98.4 Intake and Output 10/02/17 10/03/17 19:00 07:00 Intake Total 1785 ml 1100 ml Output Total 1300 ml 1250 ml Balance 485 ml -150 ml Intake Oral 830 ml IV Total 955 ml 1100 ml Output Urine Total 1300 ml 1250 ml # Bowel Movements 1 Objective General Appearance: no acute distress HEENT: normocephalic, atraumatic, anicteric, mucous membranes moist, other - L eye blind Respiratory/Chest: chest wall non-tender, normal breath sounds, no respiratory distress Cardiovascular: normal peripheral pulses, normal rate, no JVD Abdomen: normal bowel sounds, soft, non tender, s/p catheter with clear yellow urine Neurologic/Psychiatric: alert - confused , responsive Musculoskeletal: normal muscle bulk Laboratory Tests 10/03/17 05:10: White Blood Count 8.2, Red Blood Count 2.78L, Hemoglobin 8.7L, Hematocrit 26.4L , Mean Corpuscular Volume 95, Mean Corpuscular Hemoglobin 31.3H, Mean Corpuscular Hemoglobin Concent 32.9, Red Cell Distribution Width 14.7, Platelet Count 204, Mean Platelet Volume 5.4L, Neutrophils (%) (Auto) 69.0, Lymphocytes ( %) (Auto) 15.0L, Monocytes (%) (Auto) 9.7, Eosinophils (%) (Auto) 5.9H, Basophils (%) (Auto) 0.4, Sodium Level 137, Potassium Level 4.8, Chloride Level 106, Carbon Dioxide Level 15L, Anion Gap 16H, Blood Urea Nitrogen 58H, Creatinine 4.3H, Estimat Glomerular Filtration Rate 14.0, Glucose Level 393H, Uric Acid 5.8, Calcium Level 8.0L, Phosphorus Level 3.5, Magnesium Level 1.4L, Total Bilirubin 0.3, Aspartate Amino Transf (AST/SGOT) 11L, Alanine Aminotransferase (ALT/SGPT) 11L, Alkaline Phosphatase 76, C-Reactive Protein, Quantitative 7.7H, Pro-B-Type Natriuretic Peptide 3617H, Total Protein 5.9L, Albumin 1.9L, Globulin 4.0, Albumin/Globulin Ratio 0.5L, Random Vancomycin Level 17.4 Current Medications Medications (Trade) Dose Ordered Sig/Dunia Route PRN Reason Start Time Stop Time Status Last Admin Dose Admin Acetaminophen (Tylenol) 650 mg Q4H PRN ORAL T>100.5 09/28/17 19:15 10/27/17 19:14 Albuterol/ Ipratropium (Albuterol/ Ipratropium) 3 ml Q4H PRN HHN Shortness of Breath 10/01/17 15:15 10/05/17 15:15 Amlodipine Besylate (Norvasc) 5 mg DAILY ORAL 09/29/17 09:00 10/28/17 08:59 10/03/17 09:07 Atorvastatin Calcium (Lipitor) 10 mg BEDTIME ORAL 09/28/17 21:00 10/27/17 20:59 10/02/17 21:23 Azathioprine (Imuran) 50 mg DAILY ORAL 09/29/17 09:00 10/28/17 08:59 10/03/17 09:06 Chlorhexidine Gluconate (Eloisa-Hex 2%) 1 applic DAILY@1999 TOPIC 09/28/17 22:30 10/28/17 22:29 10/02/17 21:23 Dextrose (Dextrose 50%) STAT PRN IV Hypoglycemia 09/28/17 19:15 10/27/17 19:14 Doxycycline Monohydrate (Vibramycin) 100 mg EVERY 12 HOURS ORAL 10/02/17 21:00 10/09/17 20:59 10/03/17 09:07 Duloxetine HCl (Cymbalta) 30 mg DAILY ORAL 09/29/17 09:00 10/28/17 08:59 10/03/17 09:06 Epoetin Jose (Procrit (for non ESRD use)) 10,000 units MON-WED-FRI SUBQ 09/29/17 21:00 10/29/17 20:59 10/01/17 21:20 Heparin Sodium (Porcine) (Heparin 5000 units/ml) 5,000 units EVERY 12 HOURS SUBQ 09/28/17 21:00 10/27/17 20:59 10/03/17 09:08 Insulin Aspart (NovoLOG) BEFORE MEALS AND HS SUBQ 09/28/17 21:00 10/27/17 20:59 10/03/17 06:39 Insulin Aspart (NovoLOG) 8 units BEFORE MEALS SUBQ 10/03/17 11:30 11/02/17 11:29 Insulin Detemir (Levemir) 15 units BID SUBQ 10/03/17 09:00 11/02/17 08:59 10/03/17 09:21 Lansoprazole (Prevacid) 30 mg DAILY ORAL 09/29/17 09:00 10/28/17 17:59 10/03/17 09:07 Levofloxacin (Levaquin) 500 mg EVERY OTHER DAY ORAL 10/02/17 14:00 10/09/17 13:59 10/02/17 14:44 Magnesium Sulfate 100 ml @ 100 mls/hr Q1H IVPB 10/03/17 10:30 10/03/17 12:29 10/03/17 10:29 Metoprolol Succinate (Toprol XL) 50 mg Q12HR ORAL 09/28/17 21:00 10/27/17 20:59 10/03/17 09:07 Morphine Sulfate (Morphine Sulfate) 2 mg Q4H PRN IVP Moderate Pain (Pain Scale 4-6) 09/28/17 19:15 10/04/17 19:14 Nitroglycerin (Ntg) 0.4 mg Q5MIN X 3 DOSES PRN SL Prn Chest Pain 09/28/17 19:00 10/27/17 19:29 Ondansetron HCl (Zofran) 4 mg Q6H PRN IVP Nausea & Vomiting 09/28/17 19:15 10/27/17 19:14 Polyethylene Glycol (Miralax) 17 gm DAILYPRN PRN ORAL Constipation 09/28/17 19:15 10/27/17 19:14 Sevelamer Carbonate (Renvela) 800 mg THREE TIMES A DAY ORAL 09/29/17 09:00 10/28/17 08:59 10/03/17 09:07 Sodium Chloride 1,000 ml @ 100 mls/hr Q10H IVLG 09/28/17 20:00 10/28/17 19:59 10/03/17 05:20 Temazepam (Restoril) 15 mg HSPRN PRN ORAL Insomnia 09/28/17 21:00 10/04/17 20:59 [facility] Oct 03, 2017 11:24
[2017-10-03] MEDS ORDERED: Morphine Sulfate 2mg/ml Inj IVP PRN (12:00)
[2017-10-03 12:10] VITALS: BP 133/60
--- NOTE | 2017-10-03 13:49 | Internal Med Progress Note ---
Subjective Date of Service: Oct 03, 2017 Physician Name Dee Maher Attending Physician Christopher Rosado MD Current Medications Medications (Trade) Dose Ordered Sig/Dunia Route PRN Reason Start Time Stop Time Status Last Admin Dose Admin Acetaminophen (Tylenol) 650 mg Q4H PRN ORAL T>100.5 09/28/17 19:15 10/27/17 19:14 Albuterol/ Ipratropium (Albuterol/ Ipratropium) 3 ml Q4H PRN HHN Shortness of Breath 10/03/17 15:15 10/07/17 15:15 Amlodipine Besylate (Norvasc) 5 mg DAILY ORAL 09/29/17 09:00 10/28/17 08:59 10/03/17 09:07 Atorvastatin Calcium (Lipitor) 10 mg BEDTIME ORAL 09/28/17 21:00 10/27/17 20:59 10/02/17 21:23 Azathioprine (Imuran) 50 mg DAILY ORAL 09/29/17 09:00 10/28/17 08:59 10/03/17 09:06 Chlorhexidine Gluconate (Eloisa-Hex 2%) 1 applic DAILY@1999 TOPIC 09/28/17 22:30 10/28/17 22:29 10/02/17 21:23 Dextrose (Dextrose 50%) STAT PRN IV Hypoglycemia 09/28/17 19:15 10/27/17 19:14 Doxycycline Monohydrate (Vibramycin) 100 mg EVERY 12 HOURS ORAL 10/02/17 21:00 10/09/17 20:59 10/03/17 09:07 Duloxetine HCl (Cymbalta) 30 mg DAILY ORAL 09/29/17 09:00 10/28/17 08:59 10/03/17 09:06 Epoetin Jose (Procrit (for non ESRD use)) 10,000 units MON-WED-FRI SUBQ 09/29/17 21:00 10/29/17 20:59 10/01/17 21:20 Heparin Sodium (Porcine) (Heparin 5000 units/ml) 5,000 units EVERY 12 HOURS SUBQ 09/28/17 21:00 10/27/17 20:59 10/03/17 09:08 Insulin Aspart (NovoLOG) BEFORE MEALS AND HS SUBQ 09/28/17 21:00 10/27/17 20:59 10/03/17 11:45 Insulin Aspart (NovoLOG) 8 units BEFORE MEALS SUBQ 10/03/17 11:30 11/02/17 11:29 10/03/17 11:44 Insulin Detemir (Levemir) 15 units BID SUBQ 10/03/17 09:00 11/02/17 08:59 10/03/17 09:21 Lansoprazole (Prevacid) 30 mg DAILY ORAL 09/29/17 09:00 10/28/17 17:59 10/03/17 09:07 Levofloxacin (Levaquin) 500 mg EVERY OTHER DAY ORAL 10/02/17 14:00 10/09/17 13:59 10/02/17 14:44 Metoprolol Succinate (Toprol XL) 50 mg Q12HR ORAL 09/28/17 21:00 10/27/17 20:59 10/03/17 09:07 Morphine Sulfate (Morphine Sulfate) 2 mg Q4H PRN IVP Moderate Pain (Pain Scale 4-6) 10/03/17 12:00 10/09/17 11:59 Nitroglycerin (Ntg) 0.4 mg Q5MIN X 3 DOSES PRN SL Prn Chest Pain 09/28/17 19:00 10/27/17 19:29 Ondansetron HCl (Zofran) 4 mg Q6H PRN IVP Nausea & Vomiting 09/28/17 19:15 10/27/17 19:14 Polyethylene Glycol (Miralax) 17 gm DAILYPRN PRN ORAL Constipation 09/28/17 19:15 10/27/17 19:14 Sevelamer Carbonate (Renvela) 800 mg THREE TIMES A DAY ORAL 09/29/17 09:00 10/28/17 08:59 10/03/17 13:15 Sodium Chloride 1,000 ml @ 100 mls/hr Q10H IVLG 09/28/17 20:00 10/28/17 19:59 10/03/17 05:20 Temazepam (Restoril) 15 mg HSPRN PRN ORAL Insomnia 10/03/17 20:00 10/09/17 19:59 Allergies: Coded Allergies: CEFEPIME (Verified Allergy, Intermediate, Rash, 01/23/13) Subjective 62 YO M admitted with hematuria. S/P ultrasound guided cystostomy with suprapubic cath placement on 09/28/17.. Cover for Int Pierre-Dr Rosado Objective Last Vital Signs Date Time Temp Pulse Resp B/P (MAP) Pulse Ox O2 Delivery O2 Flow Rate FiO2 10/03/17 12:10 98.6 79 20 133/60 99 Room Air 98.6 10/02/17 08:08 21 09/29/17 19:52 3.0 Laboratory Tests Test 10/03/17 05:10 White Blood Count 8.2 K/UL (4.8-10.8) Red Blood Count 2.78 M/UL (4.70-6.10) L Hemoglobin 8.7 G/DL (14.2-18.0) L Hematocrit 26.4 % (42.0-52.0) L Mean Corpuscular Volume 95 FL (80-99) Mean Corpuscular Hemoglobin 31.3 PG (27.0-31.0) H Mean Corpuscular Hemoglobin Concent 32.9 G/DL (32.0-36.0) Red Cell Distribution Width 14.7 % (11.6-14.8) Platelet Count 204 K/UL (150-450) Mean Platelet Volume 5.4 FL (6.5-10.1) L Neutrophils (%) (Auto) 69.0 % (45.0-75.0) Lymphocytes (%) (Auto) 15.0 % (20.0-45.0) L Monocytes (%) (Auto) 9.7 % (1.0-10.0) Eosinophils (%) (Auto) 5.9 % (0.0-3.0) H Basophils (%) (Auto) 0.4 % (0.0-2.0) Sodium Level 137 MMOL/L (136-145) Potassium Level 4.8 MMOL/L (3.5-5.1) Chloride Level 106 MMOL/L (98-107) Carbon Dioxide Level 15 MMOL/L (21-32) L Anion Gap 16 mmol/L (5-15) H Blood Urea Nitrogen 58 mg/dL (7-18) H Creatinine 4.3 MG/DL (0.55-1.30) H Estimat Glomerular Filtration Rate 14.0 mL/min (>60) Glucose Level 393 MG/DL (74-106) H Uric Acid 5.8 MG/DL (2.6-7.2) Calcium Level 8.0 MG/DL (8.5-10.1) L Phosphorus Level 3.5 MG/DL (2.5-4.9) Magnesium Level 1.4 MG/DL (1.8-2.4) L Total Bilirubin 0.3 MG/DL (0.2-1.0) Aspartate Amino Transf (AST/SGOT) 11 U/L (15-37) L Alanine Aminotransferase (ALT/SGPT) 11 U/L (12-78) L Alkaline Phosphatase 76 U/L (46-116) C-Reactive Protein, Quantitative 7.7 mg/dL (0.00-0.90) H Pro-B-Type Natriuretic Peptide 3617 pg/mL (0-125) H Total Protein 5.9 G/DL (6.4-8.2) L Albumin 1.9 G/DL (3.4-5.0) L Globulin 4.0 g/dL Albumin/Globulin Ratio 0.5 (1.0-2.7) L Random Vancomycin Level 17.4 ug/mL Intake and Output 10/02/17 10/03/17 19:00 07:00 Intake Total 1785 ml 1100 ml Output Total 1300 ml 1250 ml Balance 485 ml -150 ml Intake Oral 830 ml IV Total 955 ml 1100 ml Output Urine Total 1300 ml 1250 ml # Bowel Movements 1 Objective General Appearance: WD/WN, no apparent distress, alert EENT: PERRL/EOMI, normal ENT inspection Neck: non-tender, normal alignment, supple, normal inspection Cardiovascular: normal peripheral pulses, normal rate, regular rhythm, no gallop/murmur, no JVD Respiratory/Chest: chest wall non-tender, lungs clear, normal breath sounds, no respiratory distress, no accessory muscle use Abdomen: normal bowel sounds, non tender, soft, no organomegaly, no mass Extremities: normal range of motion Neurologic: roll changer II-XII grossly normal, no motor/sensory deficits Skin: normal pigmentation, warm/dry Assessment/Plan Problem List: (1) Scrotal edema (2) Hyperparathyroidism (3) Hematuria (4) DM (diabetes mellitus) Assessment & Plan: Continue novolog sliding scale. (5) CKD (chronic kidney disease), stage III Assessment & Plan: See nephrology note (6) Renal osteodystrophy (7) Gastritis (8) Coronary heart disease (9) BPH (benign prostatic hyperplasia) (10) Urine retention Assessment & Plan: due to edema of scrotum. S/P ultrasound cystostomy with suprapubic cath 09/28/17-see urology note. (11) Anemia Assessment & Plan: S/P transfusion 2 units PRBC 10325. (12) Coagulopathy Assessment & Plan: S/P transfusion 4 units FFP 09/29/17. Assessment/Plan Discharge planning: [facility] DEE MAHER Oct 03, 2017 13:49
[2017-10-03] MEDS ORDERED: PREVACID30 MG ORAL (15:15)
[2017-10-03] MEDS ORDERED: Albuterol/Ipratropium 3ml neb HHN PRN (15:15)
[2017-10-03] MEDS ORDERED: LEVAQUIN500 MG ORAL (15:17)
[2017-10-03] MEDS ORDERED: NITROGLYCERIN0.4 MG SL (15:19)
[2017-10-03] MEDS ORDERED: RENVELA0.8 GM ORAL (15:20)
[2017-10-03] MEDS ORDERED: RESTORIL15 MG ORAL (15:20)
[2017-10-03] MEDS ORDERED: VIBRAMYCIN100 MG ORAL (15:22)
[2017-10-03 16:00] VITALS: BP 149/88
--- NOTE | 2017-10-04 08:33 | Diagnostic Imaging Report ---
Indication: Cholecystostomy, needs replacement after inadvertent removal. Unable to place through existing tract or using ultrasound guidance Technique: Informed consent obtained prior to commencement of the procedure. Procedure timeout performed. Procedure initially attempted in the special procedure room. After full sterile prep, attempts made at cannulating the tract of the recently inadvertently removed cystostomy catheter using catheter and guidewire. This was unsuccessful. Attempts made at localizing the bladder with ultrasound in order to effect ultrasound-guided puncture. This likewise was unsuccessful, as it was not possible to press sufficiently on the superior region due to patient pain. It was elected therefore to form the procedure with CT guidance. Localizing spiral acquisitions obtained through the pelvis. Intended puncture site sterilely prepped and draped. Local anesthesia with 1% lidocaine. Under CT guidance, the bladder lumen was cannulated using a 21-gauge AccuStick needle. CT confirmed intraluminal position of the needle. 0.018 guidewire inserted, followed by introduction of a 6 Martiniquais AccuStick introducer assembly, introduction 0.035 guidewire, over which was passed serial dilators and then a 14 Martiniquais multipurpose pigtail drainage catheter. The stiffener and guidewire removed. Pigtail was formed. Catheter was fixed to the skin. Spontaneous drainage of clear urine was realized. The catheter was fixed to the skin and placed to gravity drainage. The patient tolerated the procedure well, without immediate complication. Total dose length product 1121 mGycm. CTDIvol(s) 16, 16, 17, 17 mGy. Radiation dose was minimized using automated exposure control Comparison: Reference made to CT scan dated 09/27/2017 Findings: Intraprocedural images document wire and catheter placement within the urinary bladder lumen Impression: Successful replacement of suprapubic cystostomy, as described, using CT guidance and a [address] scanner at [facility] is accredited by the [employer] [employer] and the scans are performed using protocols designed to limit radiation exposure to as low as reasonably achievable to attain images of sufficient resolution adequate for diagnostic evaluation.
--- NOTE | 2017-10-04 18:27 | General Progress Note ---
Assessment/Plan Status: stable, progressing Assessment/Plan mdd cymbalta 30mg qam provided ro/st Subjective Date patient seen: Oct 02, 2017 Neurologic/Psychiatric: Reports: anxiety, depressed, emotional problems Allergies: Coded Allergies: CEFEPIME (Verified Allergy, Intermediate, Rash, 01/23/13) Subjective the pt is depressed and withdrawn Objective Intake and Output 10/03/17 10/04/17 19:00 07:00 Intake Total 940 ml Output Total 1250 ml Balance -310 ml Intake Oral 240 ml IV Total 700 ml Output Urine Total 1250 ml Height (Feet): 5 Height (Inches): 9.00 Weight (Pounds): 190 General Appearance: no apparent distress, alert Neurologic: alert, oriented x 3, responsive, depressed affect Fatmata Lu M.D. Oct 04, 2017 18:27
--- NOTE | 2017-10-04 18:27 | General Progress Note ---
Assessment/Plan Assessment/Plan mdd cymbalta 30mg qam provided ro/st Subjective Date patient seen: Oct 03, 2017 Neurologic/Psychiatric: Reports: anxiety, depressed Allergies: Coded Allergies: CEFEPIME (Verified Allergy, Intermediate, Rash, 01/23/13) Subjective the pt is depressed and withdrawn Objective Intake and Output 10/03/17 10/04/17 19:00 07:00 Intake Total 940 ml Output Total 1250 ml Balance -310 ml Intake Oral 240 ml IV Total 700 ml Output Urine Total 1250 ml Height (Feet): 5 Height (Inches): 9.00 Weight (Pounds): 190 Fatmata Lu M.D. Oct 04, 2017 18:27
--- NOTE | 2017-10-06 12:31 | Discharge Summary ---
Discharge Summary Hospital Course Date of Admission Sep 27, 2017 at 12:16 Date of Discharge Oct 03, 2017 at 17:25 Admitting Diagnosis gross hematuria HPI Paul Urrutia is a 62 year old male who was admitted on Sep 27, 2017 at 12: 16 for Gross Hematuria Hospital Course dc summary #[id number] Discharge Medications Continued Medications: Acetaminophen (Acetaminophen) 650 Mg/20.3 Ml Soln 650 MG ORAL Q6H PRN for Prn Headache/Temp > 101, ML 0 Refills Amlodipine Besylate (Norvasc) 5 Mg Tab 5 MG ORAL DAILY, TAB Atorvastatin Calcium* (Lipitor*) 10 Mg Tab 10 MG ORAL BEDTIME for 30 Days, TAB Azathioprine* (Imuran*) 50 Mg Tablet 50 MG PO DAILY, TAB (This prescription has been renewed) Doxycycline Hyclate (Doxycycline Hyclate) 100 Mg Tablet 100 MG PO BID, #20 TAB Doxycycline Hyclate* (Vibramycin*) 100 Mg Capsule 100 MG ORAL EVERY 12 HOURS, #14 CAP 0 Refills (This prescription has been renewed) Duloxetine Hcl* (Cymbalta*) 30 Mg Capsule.dr 30 MG ORAL DAILY, CAP Epoetin Jose (Epogen) 10 000/1 Ml Vial 75315 UNIT SUBQ THREE TIMES A WEEK, VIAL Insulin Detemir (Levemir Flexpen) 100 Unit/1 Ml Insuln.pen 15 UNITS SUBQ BID, #1 EA Lansoprazole* (Prevacid*) 30 Mg Capsule.dr 30 MG ORAL DAILY, CAP (This prescription has been renewed) Levofloxacin* (Levaquin*) 500 Mg Tablet 500 MG ORAL QOD, #7 TAB (This prescription has been renewed) Metoprolol Succinate* (Metoprolol Succinate*) 50 Mg Tab.er.24h 50 MG ORAL Q12HR, TAB Nitroglycerin (Nitroglycerin) 0.4 Mg Tab.subl 0.4 MG SL PRN for Prn Chest Pain, TAB (This prescription has been renewed) Polyethylene Glycol* (Miralax*) 17 Gm Pack 17 GM ORAL BEDTIME for 30 Days, PACK Sevelamer Carbonate* (Renvela*) 0.8 Gm Powd.pack 800 MG ORAL THREE TIMES A DAY, PACK Sevelamer Carbonate* (Renvela*) 0.8 Gm Powd.pack 800 MG ORAL THREE TIMES A DAY, PACK (This prescription has been renewed) Temazepam* (Restoril*) 15 Mg Capsule 15 MG ORAL BEDTIME PRN for Insomnia, CAP (This prescription has been renewed) Discontinued Medications: Aspirin* (Aspirin*) 81 Mg Chew 81 MG ORAL DAILY for 30 Days, TAB Atorvastatin Calcium* (Lipitor*) 10 Mg Tablet 10 MG ORAL BEDTIME, TAB Azathioprine (Azathioprine) 50 Mg Tab 50 MG ORAL DAILY for 30 Days, TAB Cholecalciferol (Vitamin D3)* (Vitamin D*) 1,000 Intlu Tab 5000 INTLU ORAL Mo@09 for 30 Days, TAB Citric Acid/Sodium Citrate (Cytra-2 Oral Solution) 473 Ml Solution 30 ML PO Cranberry Fruit Concentrate (Cranberry) 450 Mg Capsule 450 MG PO DAILY, CAP Daptomycin (Cubicin Rf) 500 Mg Vial MG IV 48 hrs, VIAL Daptomycin (Cubicin Rf) 500 Mg Vial 500 MG IV 48 hrs for 22 Days, VIAL Docusate Sodium* (Colace*) 100 Mg Cap 100 MG ORAL TWICE A DAY for 30 Days, CAP Ertapenem Sodium* (INVanz*) 1 Gm Vial.port 1 GM IVPB Q24H, VIAL Ferrous Sulfate* (Ferrous Sulfate*) 325 Mg Tablet 325 MG ORAL DAILY, #30 TAB 0 Refills Finasteride (Finasteride) 5 Mg Tablet 5 MG ORAL DAILY for 30 Days, TAB Insulin Aspart (Novolog Flexpen) 100 Units/Ml Pen 10 UNITS SUBQ NOVOTIAC, #1 EA Insulin Aspart (Novolog Flexpen) 100 Units/Ml Pen 0 UNITS SUBQ BEFORE MEALS AND HS, #1 EA Insulin Aspart (Novolog Flexpen) 100 Unit/1 Ml Insuln.pen 5 SQ AC Insulin Glargine (Lantus) 100 Unit/1 Ml Insuln.pen 6 SUBQ BID, #1 EA 0 Refills Insulin Glargine (Lantus) 100 Unit/1 Ml Insuln.pen 10 SUBQ DAILY, #1 EA 0 Refills Insulin Glargine (Lantus) 100 Unit/1 Ml Insuln.pen 6 SUBQ BEDTIME, #1 EA 0 Refills Insulin Lispro (Humalog) 100 Unit/1 Ml Cartridge 4 SUBQ AC, #1 UNITS 0 Refills Ipratropium/Albuterol Sulfate (DuoNeb 0.5-3(2.5)mg/3ml) 3 Ml Ampul.neb 3 ML HHN Q4HRT PRN for Shortness of Breath for 30 Days, EA Linezolid (Zyvox) 600 Mg/300 Ml Iv.soln 600 MG IVPB EVERY 12 HOURS, MG Omeprazole (Omeprazole) 40 Mg Capsule.dr 40 MG ORAL DAILY, CAP Ondansetron (Zofran) 4 Mg Tab 4 MG ORAL Q6H PRN for Nausea & Vomiting, TAB Pantoprazole* (Protonix*) 40 Mg Tabec 40 MG ORAL DAILY for 30 Days, TAB Sodium Citrate (Sod Citrate-Citric Acid Soln) 30 Ml Udc 30 ML ORAL THREE TIMES A DAY, #90 EA Tamsulosin HCl (Flomax) 0.4 Mg Cap 0.4 MG ORAL BID, TAB Tamsulosin Hcl (Tamsulosin Hcl*) 0.4 Mg Cap.er.24h 0.4 MG ORAL BEDTIME for 30 Days, CAP Vit B Complex & C No.13/Fa/D3 (Nephrocaps Qt Tablet) 1 Each Tab.rapdis 1 EACH PO DAILY, TAB Vitamin D (Vitamin D3) 400 Unit Tablet 5000 UNITS ORAL DAILY, TAB [Warfarin RX monitoring] () 1 EA MISC 1 EA MISC DAILY PRN for Per rx protocol Warfarin Sod* (Coumadin*) 4 Mg Tablet 4 MG ORAL DAILY, TAB Discharge Condition Upon Discharge: stable Discharge Disposition [facility] Oct 06, 2017 12:31
--- NOTE | 2017-10-07 08:47 | Discharge Summary 2 SIG ---
DATE OF ADMISSION: 09/27/2017 DATE OF DISCHARGE: 10/03/2017 REASON FOR ADMISSION: This is a 62-year-old male with past medical history of diabetes, history of simultaneous kidney and pancreas transplant, hypertension, diabetes, chronic kidney disease, CVA, and asthma, who presented to emergency department with hematuria. The patient is DNR/DNI status. Vital signs were stable. No leukocytosis. Hemoglobin 9.1 and hematocrit 28.7. BUN 71, creatinine 5.7, and glucose 352. Stable LFT and electrolytes. Troponin negative. Albumin 2.3. Urinalysis with evidence of +3 leukocyte esterase, few bacteria, and pyuria. Upon evaluation, the patient had chest x-ray which revealed no acute cardiopulmonary pathology. CT of the abdomen and pelvis revealed extensive hemorrhage around the penile shaft, extending into the adjacent subcutaneous fat. Marked edema and/or ecchymosis of the scrotal wall also demonstrated. There was also a small right hydrocele. Etiology of hemorrhage uncertain, ureteral injury possibility. Per discussion with referring physician, there was evidence of cellulitis as well as urinary bleeding. Findings were concordant with this. There was no soft tissue gas to suggest infection with gas-forming organism. Markedly distended urinary bladder, extensive perinephric edema. Cholelithiasis previously reported. The patient started on empiric antibiotic. Urology consulted. Per urologist, the patient with evidence of unclear likely injury to penis/scrotum and significant swelling of penis and scrotum making visualization of glans impossible. He did not want to attempt bedside suprapubic catheter placement due to presence of pelvic transplant kidney and likely diverticulum. The patient needed reliable drainage of bladder. He recommended to arrange for ultrasound-guided suprapubic tube placement in Interventional Radiology and conservative management of lower swelling. The patient subsequently had undergone placement of percutaneous drainage catheter in Interventional Radiology. Suprapubic cystostomy was placed under ultrasound with 14-Zambian pigtail drainage catheter. The patient admitted to the floor for further management with admitting diagnoses of hematuria, acute renal failure superimposed on chronic kidney disease stage 3, dehydration, hyperglycemia secondary to diabetes type 2, BPH, urinary retention, anemia, history of simultaneous kidney and pancreas transplant. HOSPITAL STAY: The patient admitted. Nephrology, Infectious Disease, Pulmonology, and Psych consults were requested. The patient pulled initial cystostomy catheter which was inserted by Interventional Radiology, status post reinsertion of suprapubic catheter on 10/01/2017. The patient was on the IV fluids. Airplane Inspector closely followed. Per yard laborer, the patient had acute superimposed on chronic kidney disease stage 3, renal failure. Renal parameters closely monitored. Creatinine trending down. Nephrotoxics were avoided. The patient started on the Flomax. Electrolytes replaced as needed. Nephrotoxics were avoided. Infectious Diseases closely followed the patient. The patient had evidence of penile cellulitis. On urinalysis, the patient had mild pyuria. Urine culture was not sent. The patient afebrile. No leukocytosis. The patient had history of persistent Staph epidermidis bacteremia in July 2017. At that time, AMY showed no vegetation. Likely, it was from the PICC line infection. PICC line was discontinued on 08/09/2017. Catheter at that time showed Staph coag-negative. She recommended to switch intravenous vancomycin and aztreonam to oral doxycycline and Levaquin for scrotal cellulitis. She cleared for discharge on oral regimen, provided prescription, and recommended to discontinue PICC line prior to discharge. Hemoglobin and hematocrit were closely monitored. The patient required blood transfusion. Anemia workup was consistent with anemia of chronic disease. The patient received 2 units of packed red blood cells and 4 units of fresh-frozen plasma for coagulopathy. INR down to 1.2. Hemoglobin prior to discharge 8.7 and hematocrit 26.4. Transfusion given for hemoglobin 6.6 and hematocrit 19.7. Blood pressure was managed with calcium-channel annie and beta-annie. Blood sugar was managed with sliding scale of insulin as needed. DVT and GI prophylaxis provided. Statin was continued. Supplemental oxygen provided as needed to keep pulse oximetry above 92%. Pulmonary toilet was on standby as needed. The patient was cleared for discharge. Psychiatrist had seen and evaluated the patient, diagnosed the patient with major depressive disorder and anxiety disorder. The patient was stable for discharge. FINAL DIAGNOSES: Include: 1. Hematuria, resolved. 2. Acute renal failure superimposed on chronic kidney disease stage 3, improving. 3. Diabetic nephropathy. 4. Dehydration. 5. Hydronephrosis. 6. Status post suprapubic cystostomy with placement of 14-Zambian pigtail drainage catheter. 7. Status post reinsertion of suprapubic catheter on 10/01/2017. 8. Scrotal cellulitis. 9. Hypertension. 10. Diabetes. 11. Hyperglycemia secondary to diabetes. 12. Anemia of chronic kidney disease. 13. History of renal and pancreas transplant. 14. History of CVA. 15. Coagulopathy, resolved. 16. BPH. 17. Major depressive disorder. CT of the pelvis was done on 10/01/2017 and it revealed improved persistent penile hematoma and ecchymosis, noted x 3.3 cm low attenuation collection inferior to the penile shaft within the perineum, most likely liquifying hematoma. Persistent left iliac fossa transplant kidney hydronephrosis. DISCHARGE MEDICATIONS: See medication reconciliation list. DISCHARGE INSTRUCTIONS: The patient discharged to nursing home facility. Follow up with medical doctor at the facility. Of note, creatinine down to 4.3 from initial 5.7 and BUN down to 58 from initial 71. Christopher Rosado M.D. I have been assigned to dictate discharge summary on this account and I was not involved in the patient's management. Catherine Griffin ([facility]) N.P. DR: Rosario JOB#: [id number] CC:
== END 2017-10-03 17:25 | DRG 728 ==
LOC: EDUNIT# 10:39 → EDBD 10:39 → EMR 11:10 → EDBEDREQ 11:39 → 2E 12:16 → EDBEDREQ 17:24 → 2E 20:28 → 4W 09-28 18:34
PROC: 0T9B30Z Drainage of Bladder with Drainage Device, Percutaneous Approach (ICD-10-PCS; principal; 2017-09-27)
PROC: 30233K1 Transfusion of Nonautologous Frozen Plasma into Peripheral Vein, Percutaneous Approach (ICD-10-PCS; 2017-09-28)
PROC: 30233N1 Transfusion of Nonautologous Red Blood Cells into Peripheral Vein, Percutaneous Approach (ICD-10-PCS; 2017-09-29)
DX: N48.22 Cellulitis of corpus cavernosum and penis (principal); E11.21 Type 2 diabetes mellitus with diabetic nephropathy; N17.9 Acute kidney failure, unspecified; Z94.83 Pancreas transplant status; E11.65 Type 2 diabetes mellitus with hyperglycemia; N18.4 Chronic kidney disease, stage 4 (severe); N25.0 Renal osteodystrophy; N25.81 Secondary hyperparathyroidism of renal origin; S37.39XA Other injury of urethra, initial encounter; N39.0 Urinary tract infection, site not specified; Z94.0 Kidney transplant status; N13.39 Other hydronephrosis; X58.XXXA Exposure to other specified factors, initial encounter; N36.8 Other specified disorders of urethra; N40.1 Benign prostatic hyperplasia with lower urinary tract symptoms; R31.9 Hematuria, unspecified; I25.10 Atherosclerotic heart disease of native coronary artery without angina pectoris; I12.9 Hypertensive chronic kidney disease with stage 1 through stage 4 chronic kidney disease, or unspecified chronic kidney disease; E11.22 Type 2 diabetes mellitus with diabetic chronic kidney disease; D63.1 Anemia in chronic kidney disease; E86.0 Dehydration; K29.70 Gastritis, unspecified, without bleeding; Z95.5 Presence of coronary angioplasty implant and graft; I25.2 Old myocardial infarction; H54.62 Unqualified visual loss, left eye, normal vision right eye; E78.00 Pure hypercholesterolemia, unspecified; F32.9 Major depressive disorder, single episode, unspecified; Z79.4 Long term (current) use of insulin; Z88.8 Allergy status to other drugs, medicaments and biological substances; Z66 Do not resuscitate; Z91.81 History of falling; E11.319 Type 2 diabetes mellitus with unspecified diabetic retinopathy without macular edema; Z86.718 Personal history of other venous thrombosis and embolism; N50.89 Other specified disorders of the male genital organs; Z86.73 Personal history of transient ischemic attack (TIA), and cerebral infarction without residual deficits; R79.1 Abnormal coagulation profile
CPT/HCPCS: 36415; 71045; 72192; 74176; 75989; 80048; 80053; 80061; 80076; 80202; 81001; 81003; 82436; 82550; 82553; 82607; 82728; 82746; 82962; 82977; 83036; 83540; 83550; 83605; 83735; 83880; 83930; 83935; 84100; 84133; 84300; 84439; 84443; 84484; 84550; 85007; 85025; 85610; 85730; 86140; 86850; 86900; 86901; 86920; 86927; 87040; 89050; 93005; 94664; 99285; J1815; J2250; S5561

== ENCOUNTER 2017-10-10 21:46 | Inpatient (IN) | payer MEDICARE, MEDICAID ==
[~2017-10-10] VITALS: Ht 175.3 cm; Wt 80.0 kg
[~2017-10-10 21:46] MED LIST changes: +NITROGLYCERIN0.4 MG SL; +PREVACID30 MG ORAL; +RESTORIL15 MG ORAL
[2017-10-10 22:13] VITALS: BP 161/89
[2017-10-10 23:46] LABS: HEMATOCRIT 40.2 % (42.0-52.0); HEMOGLOBIN 13.3 G/DL (14.2-18.0); MEAN CORPUSCULAR VOLUME 93 FL (80-99); PLATELET COUNT 419 K/UL (150-450); RED BLOOD COUNT 4.32 M/UL (4.70-6.10); RED CELL DISTRIBUTION WIDTH 15.7 % (11.6-14.8); WHITE BLOOD COUNT 13.4 K/UL (4.8-10.8)
[2017-10-11] VITALS (21 sets, daily range): BP systolic 85–172; BP diastolic 52–85
[2017-10-11 00:16] LABS: ALANINE AMINOTRANSFERASE 18 U/L (12-78); ALBUMIN/GLOBULIN RATIO 0.6 (1.0-2.7); ALKALINE PHOSPHATASE 154 U/L (46-116); ASPARTATE AMINO TRANSFERASE 15 U/L (15-37); BILIRUBIN,TOTAL 0.4 MG/DL (0.2-1.0); BLOOD UREA NITROGEN 88 mg/dL (7-18); CALCIUM 8.7 MG/DL (8.5-10.1); CARBON DIOXIDE 15 MMOL/L (21-32); CREATININE 5.7 MG/DL (0.55-1.30)
[2017-10-11] MEDS ORDERED: COUMADIN5 MG ORAL (01:23)
[2017-10-11 02:05] LABS: APPEARANCE,URINE CLEAR; BILIRUBIN, URINE NEGATIVE (NEGATIVE); COLOR,URINE PALE YELLOW; GLUCOSE, URINE (UA) 4+ (NEGATIVE); KETONES,URINE NEGATIVE (NEGATIVE); LEUKOCYTE ESTERASE ,URINE 3+ (NEGATIVE); NITRITE,URINE NEGATIVE (NEGATIVE); PH,URINE 6.5 (4.5-8.0); PROTEIN,URINE 3+ (NEGATIVE); UROBILINOGEN,URINE NORMAL MG/DL (0.0-1.0)
--- NOTE | 2017-10-11 02:28 | Emergency Room Report ---
History of Present Illness General Chief Complaint: Gastrointestinal Illness Source: Patient, Medical Record, EMS Present Illness HPI This is a 62-year-old male who is a jail patient. He has a history of diabetes and is a DO NOT INTUBATE/DO NOT RESUSCITATE. He presents with chief complaint of vomiting and high sugar. Similar symptom in the past. He was just discharged from the hospital. He was discharged with penile cellulitis and acute renal failure. There was no fever or chills. Nausea and vomiting 2- 3. Nonbloody nonbilious. Denies any pain. Also with a cough. Allergies: Coded Allergies: CEFEPIME (Verified Allergy, Intermediate, Rash, 01/23/13) Patient History Past Medical History: see triage record, old chart reviewed, DM, HTN, psych hx Past Surgical History: other Pertinent Family History: none Social History: Denies: smoking Immunizations: other Reviewed Nursing Documentation: PMH: Agreed; PSxH: Agreed Nursing Documentation-PMH Past Medical History: No History, Except For Hx Cardiac Problems: Yes Hx Hypertension: Yes Hx Pacemaker: No Hx Asthma: Yes Hx COPD: Yes Hx Diabetes: Yes Hx Cancer: No Hx Gastrointestinal Problems: Yes History Of Psychiatric Problem: Yes - depression Hx Neurological Problems: No Hx Cerebrovascular Accident: Yes Hx Transient Ischemic Attacks: No Hx Dementia: No Hx Alzheimer's Disease: No Hx Parkinson's Disease: No Hx Meningitis: No Hx Encephalitis: Yes - 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 ATTEMPT Hx Seizures: No Hx Epilepsy: No Hx Multiple Sclerosis: No Hx Cerebral Palsy: No Hx Amyotrophic Lat Sclerosis: No Hx Guillian-[place] Syndrome: No Hx Paralysis: No Hx Peripheral Neuropathy: No Hx Spinal Cord Injury: No Hx Head Trauma: No Hx Traumatic Brain Injury: No Hx Memory Loss: No Hx Concentration Difficulty: No Hx Speech Problem: No Hx Tremors: No Hx Vertigo: No Hx Dizziness: Yes Hx Syncope: No Hx Headaches: No Hx Aphasia: No Hx Dysphasia: No Hx Numbness: No Hx Weakness: No Hx Fatigue: No Hx Neurologic Surgery: No Hx Brain Shunt: No Review of Systems Eye: Denies: eye pain, blurred vision ENT: Denies: ear pain, nose congestion, throat swelling Respiratory: Reports: cough; Denies: shortness of breath Cardiovascular: Denies: chest pain, palpitations Gastrointestinal: Reports: nausea, vomiting; Denies: abdominal pain, diarrhea Musculoskeletal: Denies: back pain, joint pain Skin: Denies: rash Neurological: Denies: headache, numbness Endocrine: Denies: increased thirst, increased urine Hematologic/Lymphatic: Denies: easy bruising All Other Systems: negative except mentioned in HPI Physical Exam Vital Signs Date Time Temp Pulse Resp B/P (MAP) Pulse Ox O2 Delivery O2 Flow Rate FiO2 10/10/17 21:49 97.4 76 18 161/89 97 Room Air 97.3 vitals with high blood pressure Sp02 EP Interpretation: reviewed, normal General Appearance: well appearing, no apparent distress, alert Head: normocephalic, atraumatic Eyes: bilateral eye PERRL, bilateral eye EOMI ENT: hearing grossly normal, normal pharynx Neck: full range of motion, supple, no meningismus Respiratory: chest non-tender, lungs clear, normal breath sounds Cardiovascular #1: regular rate, rhythm, no murmur Gastrointestinal: normal bowel sounds, non tender, no mass, no organomegaly, no bruit, non-distended Musculoskeletal: back normal, normal range of motion Neurologic: alert, oriented x3 Psychiatric: mood/affect normal Skin: warm/dry Procedures Critical Care Time Critical Care Time Critical care is mandated in this patient who presented with severe hyperglycemia and hyperosmolar state. Patient require my urgent intervention to attenuate the risks of metabolic collapse which may lead to cardiovascular collapse and . Critical care time is 35 minutes excluding any reportable procedure. Critical care time included evaluation, multiple reevaluation, looking at old charts, interpreting laboratory and diagnostic data, discussing case with patient and family and consultants, and charting. Medical Decision Making Diagnostic Impression: Primary Impression: Hyperosmolality due to uncontrolled type 1 diabetes mellitus Additional Impressions: Acidosis, metabolic RIVKA (acute kidney injury) Acute on chronic renal failure Qualified Codes: N17.9 - Acute kidney failure, unspecified; N18.9 - Chronic kidney disease, unspecified Vomiting Qualified Codes: R11.2 - Nausea with vomiting, unspecified ER Course Patient presents with hyperosmotic syndrome secondary to uncontrolled diabetes. Blood sugar was extremely high. No evidence of infection. No evidence of DKA. Better after insulin. Will admit for IV fluid and IV insulin. Laboratory Tests Test 10/10/17 22:10 10/11/17 01:24 10/11/17 02:30 White Blood Count 13.4 K/UL (4.8-10.8) H Red Blood Count 4.32 M/UL (4.70-6.10) L Hemoglobin 13.3 G/DL (14.2-18.0) L Hematocrit 40.2 % (42.0-52.0) L Mean Corpuscular Volume 93 FL (80-99) Mean Corpuscular Hemoglobin 30.7 PG (27.0-31.0) Mean Corpuscular Hemoglobin Concent 33.0 G/DL (32.0-36.0) Red Cell Distribution Width 15.7 % (11.6-14.8) H Platelet Count 419 K/UL (150-450) Mean Platelet Volume 5.5 FL (6.5-10.1) L Neutrophils (%) (Auto) % (45.0-75.0) Lymphocytes (%) (Auto) % (20.0-45.0) Monocytes (%) (Auto) % (1.0-10.0) Eosinophils (%) (Auto) % (0.0-3.0) Basophils (%) (Auto) % (0.0-2.0) Differential Total Cells Counted 100 Neutrophils % (Manual) 90 % (45-75) H Lymphocytes % (Manual) 4 % (20-45) L Monocytes % (Manual) 5 % (1-10) Eosinophils % (Manual) 0 % (0-3) Basophils % (Manual) 1 % (0-2) Band Neutrophils 0 % (0-8) Platelet Estimate Adequate Platelet Morphology Normal Anisocytosis 1+ Macrocytosis 1+ Sodium Level Pending Potassium Level Pending Chloride Level Pending Carbon Dioxide Level 15 MMOL/L (21-32) L Blood Urea Nitrogen 88 mg/dL (7-18) H Creatinine 5.7 MG/DL (0.55-1.30) H Estimat Glomerular Filtration Rate 10.1 mL/min (>60) Glucose Level 875 MG/DL (74-106) *H Calcium Level 8.7 MG/DL (8.5-10.1) Total Bilirubin 0.4 MG/DL (0.2-1.0) Aspartate Amino Transf (AST/SGOT) 15 U/L (15-37) Alanine Aminotransferase (ALT/SGPT) 18 U/L (12-78) Alkaline Phosphatase 154 U/L (46-116) H Total Protein 8.3 G/DL (6.4-8.2) H Albumin 3.0 G/DL (3.4-5.0) L Globulin 5.3 g/dL Albumin/Globulin Ratio 0.6 (1.0-2.7) L Lipase 810 U/L (73-393) H Urine Color Pale yellow Urine Appearance Clear Urine pH 6.5 (4.5-8.0) Urine Specific [place] 1.005 (1.005-1.035) Urine Protein 3+ (NEGATIVE) H Urine Glucose (UA) 4+ (NEGATIVE) H Urine Ketones Negative (NEGATIVE) Urine Occult Blood 4+ (NEGATIVE) H Urine Nitrite Negative (NEGATIVE) Urine Bilirubin Negative (NEGATIVE) Urine Urobilinogen Normal MG/DL (0.0-1.0) Urine Leukocyte Esterase 3+ (NEGATIVE) H Urine RBC 5-10 /HPF (0 - 0) H Urine WBC 2-4 /HPF (0 - 0) Urine Squamous Epithelial Cells Occasional /LPF Urine Bacteria Occasional /HPF (NONE) Arterial Blood pH 7.250 (7.350-7.450) Arterial Blood Partial Pressure CO2 26.6 mmHg (35.0-45.0) L Arterial Blood Partial Pressure O2 78.8 mmHg (75.0-100.0) Arterial Blood HCO3 11.4 mmol/L (22.0-26.0) L Arterial Blood Oxygen Saturation 95.2 % (92.0-98.0) Arterial Blood Base Excess -14.2 Mikael Test Positive Lab Results Impression labs with severe hyperglycemia and metabolic acidosis EKG Diagnostic Results Rate: normal Rhythm: NSR ST Segments: no acute changes Rhythm Strip Diag. Results Rhythm Strip Time: 03:06 EP Interpretation: yes Rate: 62 Rhythm: NSR, no PVC's, no ectopy Chest X-Ray Diagnostic Results Chest X-Ray Diagnostic Results : Chest X-Ray Ordered: Yes # of Views/Limited/Complete: 1 View Indication: Shortness of Breath EP Interpretation: Yes Interpretation: no consolidation, no effusion, no pneumothorax, no acute cardiopulmonary disease Impression: No acute disease Electronically Signed by: Kemi Gustafson MD Last Vital Signs Date Time Temp Pulse Resp B/P (MAP) Pulse Ox O2 Delivery O2 Flow Rate FiO2 10/11/17 02:04 66 19 147/78 99 Room Air 10/10/17 22:13 97.3 97.3 Status: improved Disposition: ADMITTED INPATIENT Condition: Serious Referrals: Christopher Rosado MD (PCP) KEMI GUSTAFSON M.D. Oct 11, 2017 02:28
[2017-10-11 03:33] LABS: BLOOD UREA NITROGEN 87 mg/dL (7-18); CALCIUM 8.5 MG/DL (8.5-10.1); CARBON DIOXIDE 17 MMOL/L (21-32); CREATININE 5.7 MG/DL (0.55-1.30)
[2017-10-11] MEDS ORDERED: LORazepam Inj 2mg/ml 1ml IV PRN (05:00)
[2017-10-11] MEDS ORDERED: Insulin Rate Change 1 Each MISC PRN (05:00)
[2017-10-11] MEDS ORDERED: Morphine Sulfate 4mg/ml Inj IVP PRN (05:00)
[2017-10-11] MEDS ORDERED: Albuterol/Ipratropium 3ml neb HHN PRN (05:00)
[2017-10-11] MEDS ORDERED: Nitroglycerin Subl 0.4mg tab SL PRN (05:00)
[2017-10-11] MEDS ORDERED: Miralax 17gm pkt ORAL PRN (05:00)
[2017-10-11 05:44] LABS: BLOOD UREA NITROGEN 84 mg/dL (7-18); CALCIUM 8.8 MG/DL (8.5-10.1); CARBON DIOXIDE 15 MMOL/L (21-32); CREATININE 5.5 MG/DL (0.55-1.30)
[2017-10-11] MEDS ORDERED: D5NS 1,000 ML IV SCH (06:00)
[2017-10-11 06:49] LABS: CHLORIDE 94 MMOL/L (98-107); POTASSIUM 5.9 MMOL/L (3.5-5.1); SODIUM 125 MMOL/L (136-145)
[2017-10-11 06:51] LABS: CHLORIDE 103 MMOL/L (98-107); POTASSIUM 4.4 MMOL/L (3.5-5.1); SODIUM 133 MMOL/L (136-145)
[2017-10-11 06:51] LABS: ANION GAP 17 mmol/L (5-15)
[2017-10-11 06:52] LABS: ANION GAP 13 mmol/L (5-15)
[2017-10-11 07:00] LABS: CHLORIDE 106 MMOL/L (98-107); POTASSIUM 4.2 MMOL/L (3.5-5.1); SODIUM 136 MMOL/L (136-145)
[2017-10-11 07:04] LABS: ANION GAP 15 mmol/L (5-15)
[2017-10-11] MEDS: Heparin 5000 units/ml inj SUBQ SCH ×2 (09:00→21:08)
[2017-10-11] MEDS ORDERED: NS 275ml ONE (09:14)
--- NOTE | 2017-10-11 09:50 | Consultation ---
Consult Note Consult Note asked to eval for renal failure This is a 62-year-old male who is a senior living patient. He has a history of diabetes and is a DO NOT INTUBATE/DO NOT RESUSCITATE. He presents with chief complaint of vomiting and high sugar. Similar symptom in the past. He was just discharged from the hospital. He was discharged with penile cellulitis and acute renal failure. There was no fever or chills. Nausea and vomiting 2- 3. Nonbloody nonbilious. Denies any pain. Also with a cough. Allergies: Coded Allergies: CEFEPIME (Verified Allergy, Intermediate, Rash, 01/23/13) Hx Hypertension: Yes Hx Asthma: Yes Hx Diabetes: Yes Hx Cerebrovascular Accident: Yes Hx Encephalitis: Yes - 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 ATTEMPT Hx Dizziness: Yes examined data reviewed Assessment/Plan (1) CKD (chronic kidney disease), stage III, superimposed acute- Cr unchanged since last admit (2) Dehydration- Partly due to hyperglycemia / Vomiting (3) Hyperglycemia due to type 2 diabetes mellitus (4) BPH (benign prostatic hypertrophy) (5) Nephropathy, diabetic (6) History of simultaneous kidney and pancreas transplant (7) UTI (urinary tract infection) (8) Anemia of CKD Has suprapubic cath avoid nephrotoxics BP and BS control- Flomax PO- monitor renal parameters Anemia [place] EPO SQ BERT ALONSO Oct 11, 2017 09:50
[2017-10-11] MEDS: D5NS 1,000 ML IV SCH ×2 (10:00→20:20)
[2017-10-11] MEDS: Renvela 800mg Pkt ORAL SCH ×3 (10:22→17:43)
[2017-10-11] MEDS: Metoprolol Succinate XL 50mg tab ORAL SCH ×2 (10:23→21:07)
[2017-10-11] MEDS: DULoxetine 30mg cap ORAL SCH (10:23)
--- NOTE | 2017-10-11 10:23 | Pulmonolgy Critical Care Note ---
Critical Care - Asmt/Plan Problems: (1) DKA (diabetic ketoacidoses) (2) Pancreatitis (3) Acute on chronic renal failure (4) Kidney transplant status Respiratory: monitor respiratory rate, adjust FIO2 Cardiac: continue to monitor HR/BP Renal: F/U I&O, keep IV fluid, check electrolytes Infectious Disease: other - schneider culture if spikes temp Gastrointestinal: continue feedings/current rate Endocrine: monitor blood sugar, continue sliding scale insulin Hematologic: monitor H/H, transfuse if hgb<8.5 Neurologic: PRN Ativan, PRN Morphine, keep patient comfortable Affect: PRN ativan Prophylaxis: Protonix Time Spent (Minutes): 40 Notes Reviewed: gas torch brazier, cardio, 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, consultants, complex case managerresolution manager - Objective Last 24 Hour Vital Signs Date Time Temp Pulse Resp B/P (MAP) Pulse Ox O2 Delivery O2 Flow Rate FiO2 10/11/17 09:00 62 16 126/58 97 Room Air 10/11/17 08:00 73 18 144/82 100 Room Air 10/11/17 08:00 68 10/11/17 07:31 97.5 65 18 148/78 99 Room Air 10/11/17 07:18 65 18 148/78 99 Room Air 10/11/17 06:07 71 18 154/85 99 Room Air 10/11/17 04:07 97.5 64 21 146/75 100 Room Air 97.5 10/11/17 02:04 66 19 147/78 99 Room Air 10/11/17 00:04 73 14 172/75 100 Room Air 10/10/17 22:13 97.3 76 18 161/89 97 Room Air 97.3 10/10/17 21:49 97.4 76 18 161/89 97 Room Air 97.3 Status: awake Condition: critical HEENT: atraumatic Neck: full ROM Heart: HR/BP stable Abdomen: soft Extremities: no C/C/E Accucheck: 112 Critical Care - Subjective ROS Limited/Unobtainable: Yes - 1 ICU Day: 1 Interval Events: 62-year-old male with hx of Chronic renal insufficiency, DM, suprapubic catheter, psychiatric disorder, alf patient, presented with chief complaint of vomiting and high sugar. Similar symptom in the past. Pt has Nausea and vomiting 2-3. Also has some cough. Initial evaluation in ER showed that pt has increased anion gap and BS>800 and increased Amylase. Pt is admitted to ICU to start Insulin drip. Fluids: d5 NS 100 cc/hour Drips: Insulin drip, 3 units right now I&O: Intake and Output 10/10/17 10/11/17 19:00 07:00 Intake Total 1000 ml Output Total 775 ml Balance 225 ml Intake Oral 0 ml IV Total 1000 ml Output Urine Total 775 ml CXR: ASHER Labs: Laboratory Tests Test 10/10/17 22:10 10/11/17 01:24 10/11/17 02:20 10/11/17 02:30 White Blood Count 13.4 K/UL (4.8-10.8) H Red Blood Count 4.32 M/UL (4.70-6.10) L Hemoglobin 13.3 G/DL (14.2-18.0) L Hematocrit 40.2 % (42.0-52.0) L Mean Corpuscular Volume 93 FL (80-99) Mean Corpuscular Hemoglobin 30.7 PG (27.0-31.0) Mean Corpuscular Hemoglobin Concent 33.0 G/DL (32.0-36.0) Red Cell Distribution Width 15.7 % (11.6-14.8) H Platelet Count 419 K/UL (150-450) Mean Platelet Volume 5.5 FL (6.5-10.1) L Neutrophils (%) (Auto) % (45.0-75.0) Lymphocytes (%) (Auto) % (20.0-45.0) Monocytes (%) (Auto) % (1.0-10.0) Eosinophils (%) (Auto) % (0.0-3.0) Basophils (%) (Auto) % (0.0-2.0) Differential Total Cells Counted 100 Neutrophils % (Manual) 90 % (45-75) H Lymphocytes % (Manual) 4 % (20-45) L Monocytes % (Manual) 5 % (1-10) Eosinophils % (Manual) 0 % (0-3) Basophils % (Manual) 1 % (0-2) Band Neutrophils 0 % (0-8) Platelet Estimate Adequate Platelet Morphology Normal Anisocytosis 1+ Macrocytosis 1+ Sodium Level 125 MMOL/L (136-145) L 133 MMOL/L (136-145) L Potassium Level 5.9 MMOL/L (3.5-5.1) H 4.4 MMOL/L (3.5-5.1) Chloride Level 94 MMOL/L (98-107) L 103 MMOL/L (98-107) Carbon Dioxide Level 15 MMOL/L (21-32) L 17 MMOL/L (21-32) L Anion Gap 17 mmol/L (5-15) H 13 mmol/L (5-15) Blood Urea Nitrogen 88 mg/dL (7-18) H 87 mg/dL (7-18) H Creatinine 5.7 MG/DL (0.55-1.30) H 5.7 MG/DL (0.55-1.30) H Estimat Glomerular Filtration Rate 10.1 mL/min (>60) 10.1 mL/min (>60) Glucose Level 875 MG/DL (74-106) *H 524 MG/DL (74-106) #*H Calcium Level 8.7 MG/DL (8.5-10.1) 8.5 MG/DL (8.5-10.1) Total Bilirubin 0.4 MG/DL (0.2-1.0) Aspartate Amino Transf (AST/SGOT) 15 U/L (15-37) Alanine Aminotransferase (ALT/SGPT) 18 U/L (12-78) Alkaline Phosphatase 154 U/L (46-116) H Total Protein 8.3 G/DL (6.4-8.2) H Albumin 3.0 G/DL (3.4-5.0) L Globulin 5.3 g/dL Albumin/Globulin Ratio 0.6 (1.0-2.7) L Lipase 810 U/L (73-393) H Urine Color Pale yellow Urine Appearance Clear Urine pH 6.5 (4.5-8.0) Urine Specific [place] 1.005 (1.005-1.035) Urine Protein 3+ (NEGATIVE) H Urine Glucose (UA) 4+ (NEGATIVE) H Urine Ketones Negative (NEGATIVE) Urine Occult Blood 4+ (NEGATIVE) H Urine Nitrite Negative (NEGATIVE) Urine Bilirubin Negative (NEGATIVE) Urine Urobilinogen Normal MG/DL (0.0-1.0) Urine Leukocyte Esterase 3+ (NEGATIVE) H Urine RBC 5-10 /HPF (0 - 0) H Urine WBC 2-4 /HPF (0 - 0) Urine Squamous Epithelial Cells Occasional /LPF Urine Bacteria Occasional /HPF (NONE) Arterial Blood pH 7.250 (7.350-7.450) Arterial Blood Partial Pressure CO2 26.6 mmHg (35.0-45.0) L Arterial Blood Partial Pressure O2 78.8 mmHg (75.0-100.0) Arterial Blood HCO3 11.4 mmol/L (22.0-26.0) L Arterial Blood Oxygen Saturation 95.2 % (92.0-98.0) Arterial Blood Base Excess -14.2 Mikael Test Positive Test 10/11/17 04:50 Sodium Level 136 MMOL/L (136-145) Potassium Level 4.2 MMOL/L (3.5-5.1) Chloride Level 106 MMOL/L (98-107) Carbon Dioxide Level 15 MMOL/L (21-32) L Anion Gap 15 mmol/L (5-15) Blood Urea Nitrogen 84 mg/dL (7-18) H Creatinine 5.5 MG/DL (0.55-1.30) H Estimat Glomerular Filtration Rate 10.6 mL/min (>60) Glucose Level 250 MG/DL (74-106) #H Uric Acid Pending Calcium Level 8.8 MG/DL (8.5-10.1) Phosphorus Level Pending Magnesium Level Pending Total Bilirubin Pending Direct Bilirubin Pending Aspartate Amino Transf (AST/SGOT) Pending Alanine Aminotransferase (ALT/SGPT) Pending Alkaline Phosphatase Pending Troponin I Pending Total Protein Pending Albumin Pending Esdras Delgado MD Oct 11, 2017 10:23
[2017-10-11 10:34] LABS: ALANINE AMINOTRANSFERASE 17 U/L (12-78); ALBUMIN 2.7 G/DL (3.4-5.0); ALKALINE PHOSPHATASE 133 U/L (46-116); ASPARTATE AMINO TRANSFERASE 15 U/L (15-37); BILIRUBIN,DIRECT < 0.1 MG/DL (0.0-0.3); BILIRUBIN,TOTAL 0.2 MG/DL (0.2-1.0)
--- NOTE | 2017-10-11 13:11 | History & Physical ---
History and Physical History & Physicial Dictated for Int med-Dr Rosado no. [id number]. DEE MAHER Oct 11, 2017 13:11
--- NOTE | 2017-10-11 14:22 | Diagnostic Imaging Report ---
Indication: Chest pain Technique: One view of the chest Comparison: 09/27/2017 Findings: Patient is rotated to the right. The lungs and pleural spaces are clear. The heart size is normal. Previously demonstrated PICC is no longer evident Impression: No acute process
[2017-10-11] MEDS: NovoLOG Insulin Flexpen SUBQ SCH ×2 (17:42→21:09)
--- NOTE | 2017-10-11 18:15 | Consultation ---
DATE OF CONSULTATION: 10/11/2017 GASTROENTEROLOGY CONSULTATION CONSULTING PHYSICIAN: Constantin Larose M.D. CHIEF COMPLAINT: Nausea, vomiting, abdominal pain. HISTORY OF PRESENT ILLNESS: This is a 62-year-old male admitted to the hospital with DKA and the patient has vomiting, so GI consultation was requested for further evaluation. At this time, the patient is in ICU. According to the nurses, vomiting has subsided. The patient is a little bit confused. No hematemesis. No dysphagia. No odynophagia. PAST MEDICAL HISTORY: 1. Diabetes. 2. Hypertension. 3. Asthma. 4. CVA. ALLERGIES: Cefepime. MEDICATIONS: Please see medication reconciliation list. The patient also has history of chronic kidney and BPH. MEDICATIONS: Please see medication reconciliation list. SOCIAL HISTORY: The patient denies any tobacco, alcohol, or drug abuse. FAMILY HISTORY: Noncontributory. REVIEW OF SYSTEMS: A 10-point review of systems was performed and pertinent positives in HPI. PHYSICAL EXAMINATION: VITAL SIGNS: Temperature 98.2, pulse 63, respirations 16, blood pressure 110/60. HEENT: Normocephalic and atraumatic. Sclerae anicteric. NECK: Supple. No obvious adenopathy. CARDIOVASCULAR: Regular rhythm. Plus S1 and S2. No obvious murmur. LUNGS: Clear to auscultation bilaterally. ABDOMEN: Positive bowel sounds. Soft and nontender. No rebound. No guarding. No peritoneal sign. EXTREMITIES: No cyanosis. No clubbing. No edema. LABORATORY DATA: BUN 84, creatinine 5.1, glucose 524. White count 13.4, hemoglobin 13, hematocrit 40, and platelet count . ASSESSMENT AND PLAN: This is a 62-year-old male with DKA, elevated BUN and creatinine, with nausea and vomiting. Nausea and vomiting can be due to combination of the diabetes, gastroparesis, DKA, and also uremia from BUN of 80s. Plan to hold off any endoscopy at this time. 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 Followup BUN and creatinine on daily basis. Control the nausea with Zofran. Consider adding Reglan if needed. At one point, the patient will benefit from colonoscopy given he never had one before for screening. We will follow. Constantin Larose M.D. DR: Lu JOB#: [id number] CC:
--- NOTE | 2017-10-11 18:45 | History and Physical Report ---
DATE OF ADMISSION: 10/11/2017 CHIEF COMPLAINT: The patient is a 62-year-old white male, presents with a chief complaint of elevated blood sugar. HISTORY OF PRESENT ILLNESS: The patient is a resident of [facility]. The patient was admitted to [facility] from 09/27/2017 to 10/03/2017. The patient had a suprapubic catheter placed at that time. Please see History and Physical and Discharge Summary dictated at that time. As above, the patient is a resident of [facility]. The patient had blood sugars elevated to 400. The patient was transferred to [place] emergency room. Upon arrival, the patient had nausea with vomiting. The patient was found to have elevated blood sugar. The patient is admitted for uncontrolled diabetes and probable diabetic ketoacidosis. REVIEW OF SYSTEMS: CONSTITUTIONAL: The patient denies weight loss or weight gain. The patient denies fevers or chills. HEENT: The patient denies ear or throat pain. The patient denies headache. CARDIOVASCULAR: The patient denies palpitations or chest pain. CHEST: The patient denies wheeze or shortness of breath. ABDOMEN: The patient complains of nausea and vomiting as above. The patient denies constipation or diarrhea. GENITOURINARY: The patient has a suprapubic catheter in place. The patient denies dysuria or increased frequency of urination. NEUROMUSCULAR: The patient denies seizures or generalized weakness. PAST MEDICAL HISTORY: Significant for, 1. Type 2 diabetes. 2. Chronic renal failure, stage 4. 3. Anemia. 4. Renal osteodystrophy. 5. Secondary hyperparathyroidism. 6. Gastritis. 7. Coronary artery disease, status post stent placement in 2007. 8. Non-ST elevated myocardial infarction x3. 9. Hypertension. 10. Benign prostatic hypertrophy. 11. Left eye blindness. 12. Hypercholesterolemia. 13. Major depression, status post suicide attempt in 2012 by insulin overdose. PAST SURGICAL HISTORY: Significant for, 1. Suprapubic catheter placement in September 2017. 2. Renal pancreatic transplant in 1987, status post rejection. 3. Bilateral nephrectomy in 2014. 4. Left eye prosthesis. CURRENT MEDICATIONS: 1. Cymbalta 30 mg p.o. daily. 2. Regular insulin sliding scale. 3. Temazepam 15 mg p.o. at bedtime. 4. Amlodipine 5 mg p.o. daily. 5. Atorvastatin 10 mg p.o. at bedtime. 6. Azathioprine 50 mg p.o. daily. 7. Doxycycline 100 mg p.o. q.12 h. 8. Erythropoietin 10,000 units subcutaneously every Wednesday, Wednesday, and Wednesday. 9. Prevacid 30 mg p.o. daily. 10. Metoprolol 50 mg p.o. twice daily. 11. Sevelamer 800 mg p.o. 3 times daily. 12. Coumadin 5 mg p.o. daily. ALLERGIES: Cefepime. SOCIAL HISTORY: The patient is single and is a resident of [facility]. The patient denies tobacco or alcohol use. PHYSICAL EXAMINATION: VITAL SIGNS: Temperature 98.2, respirations 18, pulse 60, and blood pressure 120/62. GENERAL: The patient is a well-developed, well-nourished white male, in no apparent distress. HEENT: Left eye is a prosthesis. Right eye, equal and responsive to light and accommodation. Extraocular movements are intact. NECK: Supple without lymphadenopathy. CHEST: Lungs are clear to auscultation bilaterally without wheezes or rales. CARDIOVASCULAR: Regular rhythm. S1 and S2 are normal without murmurs, rubs, or gallops ABDOMEN: Soft, nontender, and nondistended. Positive bowel sounds. No evidence of hepatosplenomegaly. Currently no rebound or guarding noted. EXTREMITIES: Negative for clubbing, cyanosis, or edema. RECTAL/GENITAL: Refused. NEUROLOGIC: Cranial nerves II through XII are grossly intact without focal deficits. Motor strength is 5/5 bilaterally. Deep tendon reflexes are 2+ plantar. LABORATORY STUDIES: WBC 13.4, hemoglobin 13.3, hematocrit 40.2, and platelets 490,000. Sodium 125, potassium 5.9, chloride 94, CO2 15, BUN 88, creatinine 5.7, glucose 875. ASSESSMENT: This is a 62-year-old white male: 1. Hyperglycemia. 2. Diabetic ketoacidosis. 3. Type 2 diabetes, uncontrolled. 4. Chronic renal failure, stage 4. 5. Renal osteodystrophy. 6. Anemia of chronic renal disease. 7. Renal osteodystrophy. 8. Secondary hyperparathyroidism. 9. Gastritis. 10. History of coronary artery disease. 11. Hypertension. 12. Benign prostatic hypertrophy. 13. Blindness. 14. Major depression. TREATMENT: 1. Hyperglycemia/diabetic ketoacidosis. The patient is admitted to the intensive care unit. The patient is currently on insulin drip. We will follow recommendations of critical care, Dr. Delgado. 2. Chronic renal failure, stage 4. A Nephrology consultation has been obtained with Dr. Chambers. We will follow recommendations of Nephrology. 3. Secondary hyperparathyroidism. 4. Gastritis. 5. Coronary artery disease. 6. Hypertension. Continue Norvasc as above. 7. Benign prostatic hypertrophy. The patient is status post suprapubic catheter. 8. Blindness of the left eye. 9. Hypertension. 10. Major depression. Jose Glasgow M.D. DR: JAMI JOB#: [id number] CC:
--- NOTE | 2017-10-11 18:49 | Cardiology Report ---
APPROVED REPORT EKG Measurement Heart [id number] Normal sinus rhythm Left anterior fascicular block Abnormal ECG
[2017-10-12] VITALS (15 sets, daily range): BP systolic 97–155; BP diastolic 47–95
[2017-10-12] MEDS: NovoLOG Insulin Flexpen SUBQ SCH ×4 (06:15→20:46)
[2017-10-12 06:26] LABS: BASOPHILS % (AUTO) 0.9 % (0.0-2.0); EOSINOPHILS % (AUTO) 2.1 % (0.0-3.0); HEMATOCRIT 36.4 % (42.0-52.0); LYMPHOCYTES % (AUTO) 18.5 % (20.0-45.0); MEAN CORPUSCULAR VOLUME 93 FL (80-99); MONOCYTES % (AUTO) 5.4 % (1.0-10.0); NEUTROPHILS % (AUTO) 73.2 % (45.0-75.0); PLATELET COUNT 428 K/UL (150-450); RED BLOOD COUNT 3.92 M/UL (4.70-6.10); RED CELL DISTRIBUTION WIDTH 15.5 % (11.6-14.8); WHITE BLOOD COUNT 10.7 K/UL (4.8-10.8)
[2017-10-12 07:53] LABS: ALANINE AMINOTRANSFERASE 14 U/L (12-78); ALBUMIN 2.6 G/DL (3.4-5.0); ALBUMIN/GLOBULIN RATIO 0.7 (1.0-2.7); ALKALINE PHOSPHATASE 126 U/L (46-116); ANION GAP 16 mmol/L (5-15); ASPARTATE AMINO TRANSFERASE 20 U/L (15-37); BILIRUBIN,TOTAL 0.2 MG/DL (0.2-1.0); BLOOD UREA NITROGEN 76 mg/dL (7-18); CALCIUM 8.3 MG/DL (8.5-10.1); CARBON DIOXIDE 12 MMOL/L (21-32); CHLORIDE 108 MMOL/L (98-107); CREATININE 4.9 MG/DL (0.55-1.30); PHOSPHORUS 5.1 MG/DL (2.5-4.9); POTASSIUM 5.5 MMOL/L (3.5-5.1); SODIUM 136 MMOL/L (136-145)
[2017-10-12 08:18] LABS: AMYLASE 75 U/L (25-115)
[2017-10-12] MEDS: DULoxetine 30mg cap ORAL SCH (08:56)
[2017-10-12] MEDS: Metoprolol Succinate XL 50mg tab ORAL SCH ×2 (08:56→20:44)
[2017-10-12] MEDS: Renvela 800mg Pkt ORAL SCH ×4 (08:56→18:12)
[2017-10-12] MEDS: Heparin 5000 units/ml inj SUBQ SCH ×2 (08:58→20:46)
--- NOTE | 2017-10-12 09:39 | General Progress Note ---
Assessment/Plan Problem List: (1) Anemia in chronic kidney disease ICD Codes: D63.1 - Anemia in chronic kidney disease; N03.9 - Anemia in chronic kidney disease SNOMED: 868113002 (2) HTN (hypertension) ICD Codes: I10 - HTN (hypertension) SNOMED: 74866420 (3) DM (diabetes mellitus) ICD Codes: E11.9 - Type 2 diabetes mellitus without complications SNOMED: 81907913 Assessment/Plan stable H&H no active GIB elevated lipase and normal amylase repeat lipase hold GI procedures for now Subjective ROS Limited/Unobtainable: Yes Allergies: Coded Allergies: CEFEPIME (Verified Allergy, Intermediate, Rash, 01/23/13) Subjective no c/o Objective Last 24 Hour Vital Signs Date Time Temp Pulse Resp B/P (MAP) Pulse Ox O2 Delivery O2 Flow Rate FiO2 10/12/17 08:56 65 144/73 10/12/17 08:56 65 144/73 10/12/17 08:00 98.4 65 16 144/73 95 Room Air 98.4 10/12/17 07:00 76 16 141/66 95 Room Air 10/12/17 06:00 77 16 155/79 95 Room Air 10/12/17 05:00 77 16 142/79 97 Room Air 10/12/17 04:00 73 10/12/17 04:00 98.0 73 16 142/95 97 Room Air 98.0 10/12/17 03:00 70 16 97/58 97 Room Air 10/12/17 02:00 65 14 111/67 98 Room Air 10/12/17 01:00 66 16 114/64 98 Room Air 10/12/17 00:00 61 10/12/17 00:00 98.2 64 16 133/82 99 Room Air 98.2 10/11/17 23:00 66 16 129/75 99 Room Air 10/11/17 22:00 66 16 128/73 98 Room Air 10/11/17 21:07 68 110/63 10/11/17 21:00 67 17 105/68 100 Room Air 10/11/17 20:00 68 10/11/17 20:00 98.0 68 17 110/63 100 Room Air 98.0 10/11/17 19:00 64 17 133/70 99 Room Air 10/11/17 18:00 62 18 102/72 100 Room Air 10/11/17 17:00 65 17 90/70 98 Room Air 10/11/17 16:00 97.9 62 18 112/64 100 Room Air 97.9 10/11/17 16:00 67 10/11/17 15:00 65 17 105/65 98 Room Air 10/11/17 14:00 63 16 110/60 98 Room Air 10/11/17 13:00 61 16 115/55 100 Room Air 10/11/17 12:00 98.2 60 18 120/62 100 Room Air 98.2 10/11/17 11:59 54 10/11/17 11:00 61 18 85/52 99 Room Air 10/11/17 10:23 60 120/58 10/11/17 10:23 60 120/58 10/11/17 10:00 60 19 120/58 97 Room Air Intake and Output 10/11/17 10/12/17 19:00 07:00 Intake Total 1000 ml 1100 ml Output Total 640 ml 590 ml Balance 360 ml 510 ml Intake Oral 100 ml IV Total 900 ml 1100 ml Output Urine Total 640 ml 590 ml # Bowel Movements 3 Laboratory Tests 10/12/17 05:50: White Blood Count 10.7, Red Blood Count 3.92L, Hemoglobin 12.0L, Hematocrit 36.4L, Mean Corpuscular Volume 93, Mean Corpuscular Hemoglobin 30.7, Mean Corpuscular Hemoglobin Concent 33.1, Red Cell Distribution Width 15.5H, Platelet Count 428, Mean Platelet Volume 6.2L, Neutrophils (%) (Auto) 73.2, Lymphocytes (%) (Auto) 18.5L, Monocytes (%) (Auto) 5.4, Eosinophils (%) (Auto) 2.1, Basophils (%) (Auto) 0.9, Erythrocyte Sedimentation Rate [Pending], Prothrombin Time [Pending], Prothromb Time International Ratio [Pending], Activated Partial Thromboplast Time [Pending], Sodium Level 136, Potassium Level 5.5H, Chloride Level 108H, Carbon Dioxide Level 12L, Anion Gap 16H, Blood Urea Nitrogen 76H, Creatinine 4.9H, Estimat Glomerular Filtration Rate 12.1, Glucose Level 209H, Uric Acid 7.9H, Calcium Level 8.3L, Phosphorus Level 5.1H, Magnesium Level 2.0, Total Bilirubin 0.2, Gamma Glutamyl Transpeptidase 6, Aspartate Amino Transf (AST/SGOT) 20, Alanine Aminotransferase (ALT/SGPT) 14, Alkaline Phosphatase 126H, Troponin I 0.000, C-Reactive Protein, Quantitative 1.3H, Pro-B-Type Natriuretic Peptide 1216H, Total Protein 6.5, Albumin 2.6L, Globulin 3.9, Albumin/Globulin Ratio 0.7L, Amylase Level 75, Lipase 402H Height (Feet): 5 Height (Inches): 9.00 Weight (Pounds): 176 General Appearance: alert EENT: normal ENT inspection Neck: supple Cardiovascular: normal rate Respiratory/Chest: lungs clear Abdomen: normal bowel sounds, non tender, soft Extremities: non-tender PRANAY LISA Oct 12, 2017 09:39
--- NOTE | 2017-10-12 09:40 | Pulmonolgy Critical Care Note ---
Critical Care - Asmt/Plan Problems: (1) DKA (diabetic ketoacidoses) (2) Pancreatitis (3) Acute on chronic renal failure (4) Kidney transplant status Respiratory: monitor respiratory rate Cardiac: continue to monitor HR/BP Renal: F/U I&O, keep IV fluid Gastrointestinal: continue feedings/current rate Endocrine: monitor blood sugar, continue sliding scale insulin Hematologic: monitor H/H, transfuse if hgb<8.5 Neurologic: PRN Ativan, PRN Morphine, keep patient comfortable Disposition: transfer to - med/surg Notes Reviewed: end finder twisting department, cardio, renal Critical Care - Objective Last 24 Hour Vital Signs Date Time Temp Pulse Resp B/P (MAP) Pulse Ox O2 Delivery O2 Flow Rate FiO2 10/12/17 08:56 65 144/73 10/12/17 08:56 65 144/73 10/12/17 08:00 98.4 65 16 144/73 95 Room Air 98.4 10/12/17 07:00 76 16 141/66 95 Room Air 10/12/17 06:00 77 16 155/79 95 Room Air 10/12/17 05:00 77 16 142/79 97 Room Air 10/12/17 04:00 73 10/12/17 04:00 98.0 73 16 142/95 97 Room Air 98.0 10/12/17 03:00 70 16 97/58 97 Room Air 10/12/17 02:00 65 14 111/67 98 Room Air 10/12/17 01:00 66 16 114/64 98 Room Air 10/12/17 00:00 61 10/12/17 00:00 98.2 64 16 133/82 99 Room Air 98.2 10/11/17 23:00 66 16 129/75 99 Room Air 10/11/17 22:00 66 16 128/73 98 Room Air 10/11/17 21:07 68 110/63 10/11/17 21:00 67 17 105/68 100 Room Air 10/11/17 20:00 68 10/11/17 20:00 98.0 68 17 110/63 100 Room Air 98.0 10/11/17 19:00 64 17 133/70 99 Room Air 10/11/17 18:00 62 18 102/72 100 Room Air 10/11/17 17:00 65 17 90/70 98 Room Air 10/11/17 16:00 97.9 62 18 112/64 100 Room Air 97.9 10/11/17 16:00 67 10/11/17 15:00 65 17 105/65 98 Room Air 10/11/17 14:00 63 16 110/60 98 Room Air 10/11/17 13:00 61 16 115/55 100 Room Air 10/11/17 12:00 98.2 60 18 120/62 100 Room Air 98.2 10/11/17 11:59 54 10/11/17 11:00 61 18 85/52 99 Room Air 10/11/17 10:23 60 120/58 10/11/17 10:23 60 120/58 10/11/17 10:00 60 19 120/58 97 Room Air Status: awake Condition: improving HEENT: atraumatic Neck: full ROM Lungs: clear Heart: HR/BP stable Abdomen: soft, non-tender Extremities: no C/C/E, edema Accucheck: 188 Critical Care - Subjective ROS Limited/Unobtainable: No ICU Day: 2 Condition: improving EKG Rhythm: Sinus Rhythm Fluids: NS 100 cc/hour I&O: Intake and Output 10/11/17 10/12/17 19:00 07:00 Intake Total 1000 ml 1100 ml Output Total 640 ml 590 ml Balance 360 ml 510 ml Intake Oral 100 ml IV Total 900 ml 1100 ml Output Urine Total 640 ml 590 ml # Bowel Movements 3 Labs: Laboratory Tests Test 10/12/17 05:50 White Blood Count 10.7 K/UL (4.8-10.8) Red Blood Count 3.92 M/UL (4.70-6.10) L Hemoglobin 12.0 G/DL (14.2-18.0) L Hematocrit 36.4 % (42.0-52.0) L Mean Corpuscular Volume 93 FL (80-99) Mean Corpuscular Hemoglobin 30.7 PG (27.0-31.0) Mean Corpuscular Hemoglobin Concent 33.1 G/DL (32.0-36.0) Red Cell Distribution Width 15.5 % (11.6-14.8) H Platelet Count 428 K/UL (150-450) Mean Platelet Volume 6.2 FL (6.5-10.1) L Neutrophils (%) (Auto) 73.2 % (45.0-75.0) Lymphocytes (%) (Auto) 18.5 % (20.0-45.0) L Monocytes (%) (Auto) 5.4 % (1.0-10.0) Eosinophils (%) (Auto) 2.1 % (0.0-3.0) Basophils (%) (Auto) 0.9 % (0.0-2.0) Erythrocyte Sedimentation Rate Pending Prothrombin Time Pending Prothromb Time International Ratio Pending Activated Partial Thromboplast Time Pending Sodium Level 136 MMOL/L (136-145) Potassium Level 5.5 MMOL/L (3.5-5.1) H Chloride Level 108 MMOL/L (98-107) H Carbon Dioxide Level 12 MMOL/L (21-32) L Anion Gap 16 mmol/L (5-15) H Blood Urea Nitrogen 76 mg/dL (7-18) H Creatinine 4.9 MG/DL (0.55-1.30) H Estimat Glomerular Filtration Rate 12.1 mL/min (>60) Glucose Level 209 MG/DL (74-106) H Uric Acid 7.9 MG/DL (2.6-7.2) H Calcium Level 8.3 MG/DL (8.5-10.1) L Phosphorus Level 5.1 MG/DL (2.5-4.9) H Magnesium Level 2.0 MG/DL (1.8-2.4) Total Bilirubin 0.2 MG/DL (0.2-1.0) Gamma Glutamyl Transpeptidase 6 U/L (5-85) Aspartate Amino Transf (AST/SGOT) 20 U/L (15-37) Alanine Aminotransferase (ALT/SGPT) 14 U/L (12-78) Alkaline Phosphatase 126 U/L (46-116) H Troponin I 0.000 ng/mL (0.000-0.056) C-Reactive Protein, Quantitative 1.3 mg/dL (0.00-0.90) H Pro-B-Type Natriuretic Peptide 1216 pg/mL (0-125) H Total Protein 6.5 G/DL (6.4-8.2) Albumin 2.6 G/DL (3.4-5.0) L Globulin 3.9 g/dL Albumin/Globulin Ratio 0.7 (1.0-2.7) L Amylase Level 75 U/L (25-115) Lipase 402 U/L (73-393) H Esdras Delgado MD Oct 12, 2017 09:40
[2017-10-12] MEDS ORDERED: Miralax 17gm pkt ORAL PRN (13:00)
[2017-10-12] MEDS ORDERED: Morphine Sulfate 4mg/ml Inj IVP PRN (13:00)
[2017-10-12] MEDS ORDERED: LORazepam Inj 2mg/ml 1ml IV PRN (13:00)
[2017-10-12] MEDS ORDERED: Albuterol/Ipratropium 3ml neb HHN PRN (13:00)
[2017-10-12] MEDS ORDERED: Nitroglycerin Subl 0.4mg tab SL PRN (13:00)
[2017-10-12] MEDS ORDERED: D5NS 1000ml IV ONE (14:05)
--- NOTE | 2017-10-12 16:07 | Internal Med Progress Note ---
Subjective Date of Service: Oct 12, 2017 Physician Name Jose Maher Attending Physician Christopher Rosado MD Current Medications Medications (Trade) Dose Ordered Sig/Dunia Route PRN Reason Start Time Stop Time Status Last Admin Dose Admin Acetaminophen (Tylenol) 650 mg Q4H PRN ORAL T>100.5 10/12/17 13:00 11/10/17 04:59 Albuterol/ Ipratropium (Albuterol/ Ipratropium) 3 ml Q4H PRN HHN Shortness of Breath 10/12/17 13:00 10/16/17 04:59 Amlodipine Besylate (Norvasc) 5 mg DAILY ORAL 10/13/17 09:00 11/10/17 08:59 Dextrose (Dextrose 50%) STAT PRN IV Hypoglycemia 10/12/17 13:00 11/10/17 12:59 Duloxetine HCl (Cymbalta) 30 mg DAILY ORAL 10/13/17 09:00 11/10/17 08:59 Heparin Sodium (Porcine) (Heparin 5000 units/ml) 5,000 units EVERY 12 HOURS SUBQ 10/12/17 21:00 11/10/17 08:59 Insulin Aspart (NovoLOG) BEFORE MEALS AND HS SUBQ 10/12/17 16:30 11/10/17 16:29 Lansoprazole (Prevacid) 30 mg DAILY ORAL 10/13/17 09:00 11/10/17 10:29 Lorazepam (Ativan 2mg/ml 1ml) 2 mg Q2H PRN IV agitation 10/12/17 13:00 10/18/17 04:59 Metoprolol Succinate (Toprol XL) 50 mg Q12HR ORAL 10/12/17 21:00 11/10/17 08:59 Morphine Sulfate (Morphine Sulfate) 4 mg Q4H PRN IVP Severe Pain (Pain Scale 7-10) 10/12/17 13:00 10/18/17 04:59 Nitroglycerin (Ntg) 0.4 mg Q5M PRN SL Prn Chest Pain 10/12/17 13:00 11/10/17 12:59 Ondansetron HCl (Zofran) 4 mg Q6H PRN IVP Nausea & Vomiting 10/12/17 13:00 11/10/17 12:59 Polyethylene Glycol (Miralax) 17 gm DAILYPRN PRN ORAL Constipation 10/12/17 13:00 11/11/17 12:59 Sevelamer Carbonate (Renvela) 800 mg THREE TIMES A DAY ORAL 10/12/17 13:00 11/10/17 08:59 Sodium Chloride 1,000 ml @ 100 mls/hr Q10H IV 10/12/17 13:00 11/10/17 12:59 10/12/17 14:04 Allergies: Coded Allergies: CEFEPIME (Verified Allergy, Intermediate, Rash, 01/23/13) ROS Limited/Unobtainable: No Constitutional: Reports: no symptoms HEENT: Reports: no symptoms Cardiovascular: Reports: no symptoms Respiratory: Reports: no symptoms Gastrointestinal/Abdominal: Reports: no symptoms Genitourinary: Reports: no symptoms Neurologic/Psychiatric: Reports: no symptoms Subjective 62 YO M admitted with diabetic ketoacidosis. Await endocrinology consult. Cover for Int Med-Dr Rosado. Off insulin drip Objective Last Vital Signs Date Time Temp Pulse Resp B/P (MAP) Pulse Ox O2 Delivery O2 Flow Rate FiO2 10/12/17 12:00 98.5 67 16 128/62 98 Room Air 98.5 General Appearance: WD/WN, no apparent distress, alert EENT: PERRL/EOMI, normal ENT inspection, TMs normal Neck: non-tender, normal alignment, supple Cardiovascular: normal peripheral pulses, normal rate, regular rhythm, no gallop/murmur, no JVD Respiratory/Chest: chest wall non-tender, lungs clear, normal breath sounds, no respiratory distress, no accessory muscle use Abdomen: normal bowel sounds, non tender, soft, no organomegaly, no mass Extremities: normal range of motion, non-tender Neurologic: medical transcription radiology II-XII grossly normal, no motor/sensory deficits Skin: normal pigmentation, warm/dry Laboratory Tests Test 10/12/17 05:50 White Blood Count 10.7 K/UL (4.8-10.8) Red Blood Count 3.92 M/UL (4.70-6.10) L Hemoglobin 12.0 G/DL (14.2-18.0) L Hematocrit 36.4 % (42.0-52.0) L Mean Corpuscular Volume 93 FL (80-99) Mean Corpuscular Hemoglobin 30.7 PG (27.0-31.0) Mean Corpuscular Hemoglobin Concent 33.1 G/DL (32.0-36.0) Red Cell Distribution Width 15.5 % (11.6-14.8) H Platelet Count 428 K/UL (150-450) Mean Platelet Volume 6.2 FL (6.5-10.1) L Neutrophils (%) (Auto) 73.2 % (45.0-75.0) Lymphocytes (%) (Auto) 18.5 % (20.0-45.0) L Monocytes (%) (Auto) 5.4 % (1.0-10.0) Eosinophils (%) (Auto) 2.1 % (0.0-3.0) Basophils (%) (Auto) 0.9 % (0.0-2.0) Erythrocyte Sedimentation Rate Pending Prothrombin Time Pending Prothromb Time International Ratio Pending Activated Partial Thromboplast Time Pending Sodium Level 136 MMOL/L (136-145) Potassium Level 5.5 MMOL/L (3.5-5.1) H Chloride Level 108 MMOL/L (98-107) H Carbon Dioxide Level 12 MMOL/L (21-32) L Anion Gap 16 mmol/L (5-15) H Blood Urea Nitrogen 76 mg/dL (7-18) H Creatinine 4.9 MG/DL (0.55-1.30) H Estimat Glomerular Filtration Rate 12.1 mL/min (>60) Glucose Level 209 MG/DL (74-106) H Uric Acid 7.9 MG/DL (2.6-7.2) H Calcium Level 8.3 MG/DL (8.5-10.1) L Phosphorus Level 5.1 MG/DL (2.5-4.9) H Magnesium Level 2.0 MG/DL (1.8-2.4) Total Bilirubin 0.2 MG/DL (0.2-1.0) Gamma Glutamyl Transpeptidase 6 U/L (5-85) Aspartate Amino Transf (AST/SGOT) 20 U/L (15-37) Alanine Aminotransferase (ALT/SGPT) 14 U/L (12-78) Alkaline Phosphatase 126 U/L (46-116) H Troponin I 0.000 ng/mL (0.000-0.056) C-Reactive Protein, Quantitative 1.3 mg/dL (0.00-0.90) H Pro-B-Type Natriuretic Peptide 1216 pg/mL (0-125) H Total Protein 6.5 G/DL (6.4-8.2) Albumin 2.6 G/DL (3.4-5.0) L Globulin 3.9 g/dL Albumin/Globulin Ratio 0.7 (1.0-2.7) L Amylase Level 75 U/L (25-115) Lipase 402 U/L (73-393) H Intake and Output 10/11/17 10/12/17 19:00 07:00 Intake Total 1000 ml 1200 ml Output Total 640 ml 590 ml Balance 360 ml 610 ml Intake Oral 100 ml IV Total 900 ml 1200 ml Output Urine Total 640 ml 590 ml # Bowel Movements 3 Assessment/Plan Problem List: (1) Uncontrolled diabetes mellitus Assessment & Plan: Await endocrinology consult. Continue Novolog sliding scale. (2) Hyperglycemia due to type 2 diabetes mellitus Assessment & Plan: Await endocrinology consult. Continue novolog sliding scale. (3) DKA (diabetic ketoacidoses) (4) BPH (benign prostatic hypertrophy) Assessment & Plan: S/P suprapubic cath (5) Pancreatitis Assessment & Plan: See GI note. (6) CKD (chronic kidney disease), stage III Assessment & Plan: See nephrology note. (7) Hypoparathyroidism (8) HTN (hypertension) Assessment & Plan: Continue norvasc (9) CAD (coronary artery disease) (10) Elevated lipase (11) Acute hyperglycemia (12) Anemia Status: progressing JOSE MAHER Oct 12, 2017 16:06
--- NOTE | 2017-10-12 16:40 | Nephrology Progress Note ---
Assessment/Plan Problem List: (1) Acute on chronic renal failure (2) Anemia in chronic kidney disease (3) Nephropathy, diabetic (4) BPH (benign prostatic hypertrophy) Assessment (1) CKD (chronic kidney disease), stage III, superimposed acute- Cr unchanged since last admit (2) Dehydration- Partly due to hyperglycemia / Vomiting (3) Hyperglycemia due to type 2 diabetes mellitus (4) BPH (benign prostatic hypertrophy) (5) Nephropathy, diabetic (6) History of simultaneous kidney and pancreas transplant (7) UTI (urinary tract infection) (8) Anemia of CKD Plan Has suprapubic cath avoid nephrotoxics BP and BS control- Flomax PO- monitor renal parameters Anemia [place] EPO SQ Subjective ROS Limited/Unobtainable: No Constitutional: Reports: malaise, weakness Objective Objective Last 24 Hour Vital Signs Date Time Temp Pulse Resp B/P (MAP) Pulse Ox O2 Delivery O2 Flow Rate FiO2 10/12/17 16:00 98.2 67 19 151/74 97 Room Air 98.2 10/12/17 12:00 98.5 67 16 128/62 98 Room Air 98.5 10/12/17 12:00 68 10/12/17 11:00 64 16 105/47 98 Room Air 10/12/17 10:00 63 16 142/70 98 Room Air 10/12/17 09:00 62 16 105/47 98 Room Air 10/12/17 08:56 65 144/73 10/12/17 08:56 65 144/73 10/12/17 08:00 98.4 65 16 144/73 95 Room Air 98.4 10/12/17 08:00 76 10/12/17 07:00 76 16 141/66 95 Room Air 10/12/17 06:00 77 16 155/79 95 Room Air 10/12/17 05:00 77 16 142/79 97 Room Air 10/12/17 04:00 73 10/12/17 04:00 98.0 73 16 142/95 97 Room Air 98.0 10/12/17 03:00 70 16 97/58 97 Room Air 10/12/17 02:00 65 14 111/67 98 Room Air 10/12/17 01:00 66 16 114/64 98 Room Air 10/12/17 00:00 61 10/12/17 00:00 98.2 64 16 133/82 99 Room Air 98.2 4/2/18 23:00 66 16 129/75 99 Room Air 10/11/17 22:00 66 16 128/73 98 Room Air 10/11/17 21:07 68 110/63 10/11/17 21:00 67 17 105/68 100 Room Air 10/11/17 20:00 68 10/11/17 20:00 98.0 68 17 110/63 100 Room Air 98.0 10/11/17 19:00 64 17 133/70 99 Room Air 10/11/17 18:00 62 18 102/72 100 Room Air 10/11/17 17:00 65 17 90/70 98 Room Air Intake and Output 10/11/17 10/12/17 19:00 07:00 Intake Total 1000 ml 1200 ml Output Total 640 ml 590 ml Balance 360 ml 610 ml Intake Oral 100 ml IV Total 900 ml 1200 ml Output Urine Total 640 ml 590 ml # Bowel Movements 3 Laboratory Tests 10/12/17 05:50: White Blood Count 10.7, Red Blood Count 3.92L, Hemoglobin 12.0L, Hematocrit 36.4L, Mean Corpuscular Volume 93, Mean Corpuscular Hemoglobin 30.7, Mean Corpuscular Hemoglobin Concent 33.1, Red Cell Distribution Width 15.5H, Platelet Count 428, Mean Platelet Volume 6.2L, Neutrophils (%) (Auto) 73.2, Lymphocytes (%) (Auto) 18.5L, Monocytes (%) (Auto) 5.4, Eosinophils (%) (Auto) 2.1, Basophils (%) (Auto) 0.9, Erythrocyte Sedimentation Rate [Pending], Prothrombin Time [Pending], Prothromb Time International Ratio [Pending], Activated Partial Thromboplast Time [Pending], Sodium Level 136, Potassium Level 5.5H, Chloride Level 108H, Carbon Dioxide Level 12L, Anion Gap 16H, Blood Urea Nitrogen 76H, Creatinine 4.9H, Estimat Glomerular Filtration Rate 12.1, Glucose Level 209H, Uric Acid 7.9H, Calcium Level 8.3L, Phosphorus Level 5.1H, Magnesium Level 2.0, Total Bilirubin 0.2, Gamma Glutamyl Transpeptidase 6, Aspartate Amino Transf (AST/SGOT) 20, Alanine Aminotransferase (ALT/SGPT) 14, Alkaline Phosphatase 126H, Troponin I 0.000, C-Reactive Protein, Quantitative 1.3H, Pro-B-Type Natriuretic Peptide 1216H, Total Protein 6.5, Albumin 2.6L, Globulin 3.9, Albumin/Globulin Ratio 0.7L, Amylase Level 75, Lipase 402H Height (Feet): 5 Height (Inches): 9.00 Weight (Pounds): 176 General Appearance: no apparent distress Respiratory/Chest: decreased breath sounds Abdomen: distended Genitourinary/Rectal: other - supra pubic cath BERT ALONSO Oct 12, 2017 16:40
[2017-10-12] MEDS ORDERED: Sodium Polystyrene Sulfonate 15gm Powder ORAL ONE (17:00)
--- NOTE | 2017-10-12 23:07 | General Progress Note ---
Subjective Date patient seen: Oct 12, 2017 Allergies: Coded Allergies: CEFEPIME (Verified Allergy, Intermediate, Rash, 01/23/13) Objective Last 24 Hour Vital Signs Date Time Temp Pulse Resp B/P (MAP) Pulse Ox O2 Delivery O2 Flow Rate FiO2 10/12/17 20:44 73 132/76 10/12/17 20:00 98.3 73 16 132/76 97 Room Air 98.3 10/12/17 16:00 98.2 67 19 151/74 97 Room Air 98.2 10/12/17 12:00 98.5 67 16 128/62 98 Room Air 98.5 10/12/17 12:00 68 10/12/17 11:00 64 16 105/47 98 Room Air 10/12/17 10:00 63 16 142/70 98 Room Air 10/12/17 09:00 62 16 105/47 98 Room Air 10/12/17 08:56 65 144/73 10/12/17 08:56 65 144/73 10/12/17 08:00 98.4 65 16 144/73 95 Room Air 98.4 10/12/17 08:00 76 10/12/17 07:00 76 16 141/66 95 Room Air 10/12/17 06:00 77 16 155/79 95 Room Air 10/12/17 05:00 77 16 142/79 97 Room Air 10/12/17 04:00 73 10/12/17 04:00 98.0 73 16 142/95 97 Room Air 98.0 10/12/17 03:00 70 16 97/58 97 Room Air 10/12/17 02:00 65 14 111/67 98 Room Air 10/12/17 01:00 66 16 114/64 98 Room Air 10/12/17 00:00 61 10/12/17 00:00 98.2 64 16 133/82 99 Room Air 98.2 Intake and Output 10/11/17 10/12/17 19:00 07:00 Intake Total 1000 ml 1200 ml Output Total 640 ml 590 ml Balance 360 ml 610 ml Intake Oral 100 ml IV Total 900 ml 1200 ml Output Urine Total 640 ml 590 ml # Bowel Movements 3 Laboratory Tests 10/12/17 05:50: White Blood Count 10.7, Red Blood Count 3.92L, Hemoglobin 12.0L, Hematocrit 36.4L, Mean Corpuscular Volume 93, Mean Corpuscular Hemoglobin 30.7, Mean Corpuscular Hemoglobin Concent 33.1, Red Cell Distribution Width 15.5H, Platelet Count 428, Mean Platelet Volume 6.2L, Neutrophils (%) (Auto) 73.2, Lymphocytes (%) (Auto) 18.5L, Monocytes (%) (Auto) 5.4, Eosinophils (%) (Auto) 2.1, Basophils (%) (Auto) 0.9, Erythrocyte Sedimentation Rate [Pending], Prothrombin Time [Pending], Prothromb Time International Ratio [Pending], Activated Partial Thromboplast Time [Pending], Sodium Level 136, Potassium Level 5.5H, Chloride Level 108H, Carbon Dioxide Level 12L, Anion Gap 16H, Blood Urea Nitrogen 76H, Creatinine 4.9H, Estimat Glomerular Filtration Rate 12.1, Glucose Level 209H, Uric Acid 7.9H, Calcium Level 8.3L, Phosphorus Level 5.1H, Magnesium Level 2.0, Total Bilirubin 0.2, Gamma Glutamyl Transpeptidase 6, Aspartate Amino Transf (AST/SGOT) 20, Alanine Aminotransferase (ALT/SGPT) 14, Alkaline Phosphatase 126H, Troponin I 0.000, C-Reactive Protein, Quantitative 1.3H, Pro-B-Type Natriuretic Peptide 1216H, Total Protein 6.5, Albumin 2.6L, Globulin 3.9, Albumin/Globulin Ratio 0.7L, Amylase Level 75, Lipase 402H Height (Feet): 5 Height (Inches): 9.00 Weight (Pounds): 176 Fatmata Lu M.D. Oct 12, 2017 23:07
--- NOTE | 2017-10-12 23:07 | Consultation ---
History of Present Illness General Date patient seen: Oct 11, 2017 Chief Complaint: Gastrointestinal Illness Present Illness HPI 62-year-old male admitted to the hospital with DKA. the pt has mdd, and psychosis. the pt is more depressed and anxious. the pt is withdrawn and anhedonic. no si/hi. Allergies: Coded Allergies: CEFEPIME (Verified Allergy, Intermediate, Rash, 01/23/13) Medication History Scheduled Amlodipine Besylate (Norvasc), 5 MG ORAL DAILY, (Reported) Atorvastatin Calcium* (Lipitor*), 10 MG ORAL BEDTIME Azathioprine* (Imuran*), 50 MG PO DAILY, (Reported) Doxycycline Hyclate (Doxycycline Hyclate), 100 MG PO BID Doxycycline Hyclate* (Vibramycin*), 100 MG ORAL EVERY 12 HOURS, (Reported) Duloxetine Hcl* (Cymbalta*), 30 MG ORAL DAILY, (Reported) Epoetin Jose (Epogen), 10,000 UNIT SUBQ THREE TIMES A WEEK, (Reported) Insulin Detemir (Levemir Flexpen), 15 UNITS SUBQ BID Lansoprazole* (Prevacid*), 30 MG ORAL DAILY, (Reported) Levofloxacin* (Levaquin*), 500 MG ORAL QOD, (Reported) Metoprolol Succinate* (Metoprolol Succinate*), 50 MG ORAL Q12HR, (Reported) Polyethylene Glycol* (Miralax*), 17 GM ORAL BEDTIME Sevelamer Carbonate* (Renvela*), 800 MG ORAL THREE TIMES A DAY, (Reported) Sevelamer Carbonate* (Renvela*), 800 MG ORAL THREE TIMES A DAY, (Reported) Warfarin Sod* (Coumadin*), 5 MG ORAL DAILY, (Reported) Scheduled PRN Acetaminophen (Acetaminophen), 650 MG ORAL Q6H PRN for Prn Headache/Temp > 101, (Reported) Nitroglycerin (Nitroglycerin), 0.4 MG SL for Prn Chest Pain, (Reported) Temazepam* (Restoril*), 15 MG ORAL BEDTIME PRN for Insomnia, (Reported) Miscellaneous Medications [Novolog ss], (Reported) Patient History Limited by: medical condition History Provided By: Patient, Medical Record, PMD Healthcare decision maker Resuscitation status Advanced Directive on File Past Medical/Surgical History Past Medical/Surgical History: (1) Hematuria (2) Hyponatremia (3) Retention, urine (4) ESRD (end stage renal disease) (5) Coagulopathy (6) Hematemesis (7) Hypokalemia (8) Renal osteodystrophy (9) Hematuria (10) Gastrointestinal hemorrhage (11) Gastrointestinal hemorrhage (12) Bacteremia (13) Gastritis (14) Gastritis (15) GI bleeding (16) GI hemorrhage (17) Hypercholesteremia (18) Iron deficiency anemia (19) Sepsis (20) UTI (urinary tract infection) (21) DVT (deep venous thrombosis) (22) Vitamin D deficiency (23) Fall (24) Encephalopathy acute (25) Head trauma (26) Head trauma (27) UTI (lower urinary tract infection) (28) Colon polyps (29) Abnormal laboratory test result (30) Renal mass, right (31) RIVKA (acute kidney injury) (32) Laceration of lip (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, diabetic, left eye (34) Excessive anticoagulation (35) DVT of axillary vein, 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 (37) urinary retention (38) Scrotal edema (39) Hyperparathyroidism (40) Urine retention (41) Acidosis, metabolic (42) Hyperosmolality due to uncontrolled type 1 diabetes mellitus (43) Vomiting (44) Pancreatitis (45) BPH (benign prostatic hypertrophy) (46) Anemia (47) DKA (diabetic ketoacidoses) (48) Hypoparathyroidism (49) Uncontrolled diabetes mellitus (50) CKD (chronic kidney disease), stage III (51) BPH (benign prostatic hyperplasia) (52) Elevated lipase (53) Acute hyperglycemia (54) Hyperglycemia due to type 2 diabetes mellitus (55) Nephropathy, diabetic (56) Altered mental state (57) Respiratory disease (58) diabetic keto acidosis (59) Renal insufficiency (60) Elevated troponin (61) Dehydration (62) Renal insufficiency (63) Acute renal failure (ARF) (64) CKD (chronic kidney disease), stage III (65) DKA (diabetic ketoacidoses) (66) IL (myocardial infarction) (67) C. difficile colitis (68) Staphylococcus aureus pneumonia (69) Hypernatremia (70) DM (diabetes mellitus) (71) Anemia (72) GI bleeding (73) DM (diabetes mellitus) (74) Acute hyperglycemia (75) Anemia (76) Hyponatremia (77) CKD (chronic kidney disease), stage III (78) Renal insufficiency (79) Dehydration (80) Coronary heart disease (81) Psychiatric disturbance (82) Pulmonary HTN (83) Acute on chronic renal failure (84) CAD (coronary artery disease) (85) HTN (hypertension) (86) Anemia in chronic kidney disease (87) Anemia in chronic kidney disease (88) Iron deficiency anemia Review of Systems Psychiatric: Reports: prior hx, anxiety, depressed feelings, emotional problems Physical Exam General Appearance: no apparent distress, alert Neurologic: oriented x 3, depressed affect Last 24 Hour Vital Signs Date Time Temp Pulse Resp B/P (MAP) Pulse Ox O2 Delivery O2 Flow Rate FiO2 10/12/17 20:44 73 132/76 10/12/17 20:00 98.3 73 16 132/76 97 Room Air 98.3 10/12/17 16:00 98.2 67 19 151/74 97 Room Air 98.2 10/12/17 12:00 98.5 67 16 128/62 98 Room Air 98.5 10/12/17 12:00 68 10/12/17 11:00 64 16 105/47 98 Room Air 10/12/17 10:00 63 16 142/70 98 Room Air 10/12/17 09:00 62 16 105/47 98 Room Air 10/12/17 08:56 65 144/73 10/12/17 08:56 65 144/73 10/12/17 08:00 98.4 65 16 144/73 95 Room Air 98.4 10/12/17 08:00 76 10/12/17 07:00 76 16 141/66 95 Room Air 10/12/17 06:00 77 16 155/79 95 Room Air 10/12/17 05:00 77 16 142/79 97 Room Air 10/12/17 04:00 73 10/12/17 04:00 98.0 73 16 142/95 97 Room Air 98.0 10/12/17 03:00 70 16 97/58 97 Room Air 10/12/17 02:00 65 14 111/67 98 Room Air 10/12/17 01:00 66 16 114/64 98 Room Air 10/12/17 00:00 61 10/12/17 00:00 98.2 64 16 133/82 99 Room Air 98.2 Intake and Output 10/11/17 10/12/17 19:00 07:00 Intake Total 1000 ml 1200 ml Output Total 640 ml 590 ml Balance 360 ml 610 ml Intake Oral 100 ml IV Total 900 ml 1200 ml Output Urine Total 640 ml 590 ml # Bowel Movements 3 Laboratory Tests Test 10/12/17 05:50 White Blood Count 10.7 K/UL (4.8-10.8) Red Blood Count 3.92 M/UL (4.70-6.10) L Hemoglobin 12.0 G/DL (14.2-18.0) L Hematocrit 36.4 % (42.0-52.0) L Mean Corpuscular Volume 93 FL (80-99) Mean Corpuscular Hemoglobin 30.7 PG (27.0-31.0) Mean Corpuscular Hemoglobin Concent 33.1 G/DL (32.0-36.0) Red Cell Distribution Width 15.5 % (11.6-14.8) H Platelet Count 428 K/UL (150-450) Mean Platelet Volume 6.2 FL (6.5-10.1) L Neutrophils (%) (Auto) 73.2 % (45.0-75.0) Lymphocytes (%) (Auto) 18.5 % (20.0-45.0) L Monocytes (%) (Auto) 5.4 % (1.0-10.0) Eosinophils (%) (Auto) 2.1 % (0.0-3.0) Basophils (%) (Auto) 0.9 % (0.0-2.0) Erythrocyte Sedimentation Rate Pending Prothrombin Time Pending Prothromb Time International Ratio Pending Activated Partial Thromboplast Time Pending Sodium Level 136 MMOL/L (136-145) Potassium Level 5.5 MMOL/L (3.5-5.1) H Chloride Level 108 MMOL/L (98-107) H Carbon Dioxide Level 12 MMOL/L (21-32) L Anion Gap 16 mmol/L (5-15) H Blood Urea Nitrogen 76 mg/dL (7-18) H Creatinine 4.9 MG/DL (0.55-1.30) H Estimat Glomerular Filtration Rate 12.1 mL/min (>60) Glucose Level 209 MG/DL (74-106) H Uric Acid 7.9 MG/DL (2.6-7.2) H Calcium Level 8.3 MG/DL (8.5-10.1) L Phosphorus Level 5.1 MG/DL (2.5-4.9) H Magnesium Level 2.0 MG/DL (1.8-2.4) Total Bilirubin 0.2 MG/DL (0.2-1.0) Gamma Glutamyl Transpeptidase 6 U/L (5-85) Aspartate Amino Transf (AST/SGOT) 20 U/L (15-37) Alanine Aminotransferase (ALT/SGPT) 14 U/L (12-78) Alkaline Phosphatase 126 U/L (46-116) H Troponin I 0.000 ng/mL (0.000-0.056) C-Reactive Protein, Quantitative 1.3 mg/dL (0.00-0.90) H Pro-B-Type Natriuretic Peptide 1216 pg/mL (0-125) H Total Protein 6.5 G/DL (6.4-8.2) Albumin 2.6 G/DL (3.4-5.0) L Globulin 3.9 g/dL Albumin/Globulin Ratio 0.7 (1.0-2.7) L Amylase Level 75 U/L (25-115) Lipase 402 U/L (73-393) H Height (Feet): 5 Height (Inches): 9.00 Weight (Pounds): 176 Medications Current Medications Medications (Trade) Dose Ordered Sig/Dunia Route PRN Reason Start Time Stop Time Status Last Admin Dose Admin Acetaminophen (Tylenol) 650 mg Q4H PRN ORAL T>100.5 10/12/17 13:00 11/10/17 04:59 Albuterol/ Ipratropium (Albuterol/ Ipratropium) 3 ml Q4H PRN HHN Shortness of Breath 10/12/17 13:00 10/16/17 04:59 Amlodipine Besylate (Norvasc) 5 mg DAILY ORAL 10/13/17 09:00 11/10/17 08:59 Dextrose (Dextrose 50%) STAT PRN IV Hypoglycemia 10/12/17 13:00 11/10/17 12:59 Duloxetine HCl (Cymbalta) 30 mg DAILY ORAL 10/13/17 09:00 11/10/17 08:59 Heparin Sodium (Porcine) (Heparin 5000 units/ml) 5,000 units EVERY 12 HOURS SUBQ 10/12/17 21:00 11/10/17 08:59 10/12/17 20:46 Insulin Aspart (NovoLOG) BEFORE MEALS AND HS SUBQ 10/12/17 16:30 11/10/17 16:29 10/12/17 20:46 Lansoprazole (Prevacid) 30 mg DAILY ORAL 10/13/17 09:00 11/10/17 10:29 Lorazepam (Ativan 2mg/ml 1ml) 2 mg Q2H PRN IV agitation 10/12/17 13:00 10/18/17 04:59 Metoprolol Succinate (Toprol XL) 50 mg Q12HR ORAL 10/12/17 21:00 11/10/17 08:59 10/12/17 20:44 Morphine Sulfate (Morphine Sulfate) 4 mg Q4H PRN IVP Severe Pain (Pain Scale 7-10) 10/12/17 13:00 10/18/17 04:59 Nitroglycerin (Ntg) 0.4 mg Q5M PRN SL Prn Chest Pain 10/12/17 13:00 11/10/17 12:59 Ondansetron HCl (Zofran) 4 mg Q6H PRN IVP Nausea & Vomiting 10/12/17 13:00 11/10/17 12:59 Polyethylene Glycol (Miralax) 17 gm DAILYPRN PRN ORAL Constipation 10/12/17 13:00 11/11/17 12:59 Sevelamer Carbonate (Renvela) 800 mg THREE TIMES A DAY ORAL 10/12/17 13:00 11/10/17 08:59 10/12/17 18:12 Sodium Chloride 1,000 ml @ 100 mls/hr Q10H IV 10/12/17 13:00 11/10/17 12:59 10/12/17 14:04 Assessment/Plan Status: stable Assessment/Plan mdd schizo cont Fatmata Kang M.D. Oct 12, 2017 23:06
[2017-10-13 00:07] VITALS: BP 130/69
[2017-10-13 04:00] VITALS: BP 148/80
[2017-10-13] MEDS: NovoLOG Insulin Flexpen SUBQ SCH ×7 (06:32→21:03)
--- NOTE | 2017-10-13 07:11 | General Progress Note ---
Assessment/Plan Problem List: (1) CKD (chronic kidney disease), stage III ICD Codes: N18.3 - Chronic kidney disease, stage 3 (moderate) SNOMED: 456875131 (2) DKA (diabetic ketoacidoses) ICD Codes: E13.10 - Other specified diabetes mellitus with ketoacidosis without coma SNOMED: 539716084 Assessment/Plan start Levemir 10 units bid start Novolog 5 units ac tid continue NISS ac / hs Subjective Allergies: Coded Allergies: CEFEPIME (Verified Allergy, Intermediate, Rash, 01/23/13) All Systems: reviewed and negative except above Subjective events noted - interval notes reviewed Objective Last 24 Hour Vital Signs Date Time Temp Pulse Resp B/P (MAP) Pulse Ox O2 Delivery O2 Flow Rate FiO2 10/13/17 04:00 98.0 71 16 148/80 99 Room Air 98.0 10/13/17 00:07 97.9 70 16 130/69 96 Room Air 97.9 10/12/17 20:44 73 132/76 10/12/17 20:00 98.3 73 16 132/76 97 Room Air 98.3 10/12/17 16:00 98.2 67 19 151/74 97 Room Air 98.2 10/12/17 12:00 98.5 67 16 128/62 98 Room Air 98.5 10/12/17 12:00 68 10/12/17 11:00 64 16 105/47 98 Room Air 10/12/17 10:00 63 16 142/70 98 Room Air 10/12/17 09:00 62 16 105/47 98 Room Air 10/12/17 08:56 65 144/73 10/12/17 08:56 65 144/73 10/12/17 08:00 98.4 65 16 144/73 95 Room Air 98.4 10/12/17 08:00 76 Intake and Output 10/12/17 10/13/17 19:00 07:00 Intake Total 1510 ml 1120 ml Output Total 1150 ml 700 ml Balance 360 ml 420 ml Intake Oral 610 ml 120 ml IV Total 900 ml 1000 ml Output Urine Total 1150 ml 700 ml Height (Feet): 5 Height (Inches): 9.00 Weight (Pounds): 176 General Appearance: no apparent distress Neck: normal alignment Cardiovascular: normal rate Respiratory/Chest: lungs clear Abdomen: normal bowel sounds Edema: 1+ Arm (L), 1+ Arm (R), 1+ Leg (L), 1+ Leg (R), 1+ Pedal (L), 1+ Pedal ( R), 1+ Generalized Objective Current Medications Medications (Trade) Dose Ordered Sig/Dunia Route PRN Reason Start Time Stop Time Status Last Admin Dose Admin Acetaminophen (Tylenol) 650 mg Q4H PRN ORAL T>100.5 10/12/17 13:00 11/10/17 04:59 Albuterol/ Ipratropium (Albuterol/ Ipratropium) 3 ml Q4H PRN HHN Shortness of Breath 10/12/17 13:00 10/16/17 04:59 Amlodipine Besylate (Norvasc) 5 mg DAILY ORAL 10/13/17 09:00 11/10/17 08:59 Dextrose (Dextrose 50%) STAT PRN IV Hypoglycemia 10/12/17 13:00 11/10/17 12:59 Duloxetine HCl (Cymbalta) 30 mg DAILY ORAL 10/13/17 09:00 11/10/17 08:59 Heparin Sodium (Porcine) (Heparin 5000 units/ml) 5,000 units EVERY 12 HOURS SUBQ 10/12/17 21:00 11/10/17 08:59 10/12/17 20:46 Insulin Aspart (NovoLOG) BEFORE MEALS AND HS SUBQ 10/12/17 16:30 11/10/17 16:29 10/13/17 06:32 Lansoprazole (Prevacid) 30 mg DAILY ORAL 10/13/17 09:00 11/10/17 10:29 Lorazepam (Ativan 2mg/ml 1ml) 2 mg Q2H PRN IV agitation 10/12/17 13:00 10/18/17 04:59 Metoprolol Succinate (Toprol XL) 50 mg Q12HR ORAL 10/12/17 21:00 11/10/17 08:59 10/12/17 20:44 Morphine Sulfate (Morphine Sulfate) 4 mg Q4H PRN IVP Severe Pain (Pain Scale 7-10) 10/12/17 13:00 10/18/17 04:59 Nitroglycerin (Ntg) 0.4 mg Q5M PRN SL Prn Chest Pain 10/12/17 13:00 11/10/17 12:59 Ondansetron HCl (Zofran) 4 mg Q6H PRN IVP Nausea & Vomiting 10/12/17 13:00 11/10/17 12:59 Polyethylene Glycol (Miralax) 17 gm DAILYPRN PRN ORAL Constipation 10/12/17 13:00 11/11/17 12:59 Sevelamer Carbonate (Renvela) 800 mg THREE TIMES A DAY ORAL 10/12/17 13:00 11/10/17 08:59 10/12/17 18:12 Sodium Chloride 1,000 ml @ 100 mls/hr Q10H IV 10/12/17 13:00 11/10/17 12:59 10/12/17 23:33 Item Value Date Time Bedside Blood Glucose 317 mg/dl H 10/13/17 0632 Bedside Blood Glucose 352 mg/dl H 10/12/17 2100 Bedside Blood Glucose 149 mg/dl H 10/12/17 1812 Bedside Blood Glucose 221 mg/dl H 10/12/17 1143 Bedside Blood Glucose 188 mg/dl H 10/12/17 0615 MALKA SHERIFF Oct 13, 2017 07:11
[2017-10-13 08:00] VITALS: BP 153/75
[2017-10-13] MEDS ORDERED: DULoxetine 30mg cap ORAL SCH (09:00)
[2017-10-13] MEDS: Renvela 800mg Pkt ORAL SCH ×3 (09:08→17:54)
[2017-10-13] MEDS: Metoprolol Succinate XL 50mg tab ORAL SCH ×2 (09:08→21:01)
[2017-10-13] MEDS: Heparin 5000 units/ml inj SUBQ SCH ×2 (09:10→21:02)
[2017-10-13] MEDS: Levemir Flexpen SUBQ SCH ×2 (09:16→17:55)
[2017-10-13 09:26] LABS: BASOPHILS % (AUTO) 0.8 % (0.0-2.0); HEMATOCRIT 35.6 % (42.0-52.0); HEMOGLOBIN 11.2 G/DL (14.2-18.0); LYMPHOCYTES % (AUTO) 28.9 % (20.0-45.0); MEAN CORPUSCULAR VOLUME 93 FL (80-99); MONOCYTES % (AUTO) 7.3 % (1.0-10.0); NEUTROPHILS % (AUTO) 61.1 % (45.0-75.0); PLATELET COUNT 381 K/UL (150-450); RED BLOOD COUNT 3.82 M/UL (4.70-6.10); WHITE BLOOD COUNT 6.9 K/UL (4.8-10.8)
[2017-10-13 09:44] LABS: ALANINE AMINOTRANSFERASE 14 U/L (12-78); ALBUMIN 2.2 G/DL (3.4-5.0); ALBUMIN/GLOBULIN RATIO 0.6 (1.0-2.7); ALKALINE PHOSPHATASE 109 U/L (46-116); ANION GAP 12 mmol/L (5-15); ASPARTATE AMINO TRANSFERASE 12 U/L (15-37); BILIRUBIN,TOTAL 0.3 MG/DL (0.2-1.0); BLOOD UREA NITROGEN 75 mg/dL (7-18); CARBON DIOXIDE 14 MMOL/L (21-32); CHLORIDE 108 MMOL/L (98-107); CREATININE 4.9 MG/DL (0.55-1.30); PHOSPHORUS 4.7 MG/DL (2.5-4.9); POTASSIUM 5.1 MMOL/L (3.5-5.1); SODIUM 134 MMOL/L (136-145)
[2017-10-13 09:56] LABS: AMYLASE 64 U/L (25-115)
--- NOTE | 2017-10-13 11:19 | General Progress Note ---
Assessment/Plan Problem List: (1) Anemia in chronic kidney disease ICD Codes: D63.1 - Anemia in chronic kidney disease; N03.9 - Anemia in chronic kidney disease SNOMED: 479371725 (2) HTN (hypertension) ICD Codes: I10 - HTN (hypertension) SNOMED: 81457734 (3) DM (diabetes mellitus) ICD Codes: E11.9 - Type 2 diabetes mellitus without complications SNOMED: 63573187 Assessment/Plan drop in H&H slowly check stool ob colace and miralax elevated lipase and normal amylase repeat lipase hold GI procedures for now Subjective ROS Limited/Unobtainable: Yes Allergies: Coded Allergies: CEFEPIME (Verified Allergy, Intermediate, Rash, 01/23/13) Subjective no c/o Objective Last 24 Hour Vital Signs Date Time Temp Pulse Resp B/P (MAP) Pulse Ox O2 Delivery O2 Flow Rate FiO2 10/13/17 09:08 69 153/75 10/13/17 09:08 69 153/75 10/13/17 08:00 97.2 69 19 153/75 99 97.2 10/13/17 04:00 98.0 71 16 148/80 99 Room Air 98.0 10/13/17 00:07 97.9 70 16 130/69 96 Room Air 97.9 10/12/17 20:44 73 132/76 10/12/17 20:00 98.3 73 16 132/76 97 Room Air 98.3 10/12/17 16:00 98.2 67 19 151/74 97 Room Air 98.2 10/12/17 12:00 98.5 67 16 128/62 98 Room Air 98.5 10/12/17 12:00 68 Intake and Output 10/12/17 10/13/17 19:00 07:00 Intake Total 1510 ml 1320 ml Output Total 1150 ml 700 ml Balance 360 ml 620 ml Intake Oral 610 ml 120 ml IV Total 900 ml 1200 ml Output Urine Total 1150 ml 700 ml Laboratory Tests 10/13/17 08:30: White Blood Count 6.9, Red Blood Count 3.82L, Hemoglobin 11.2L, Hematocrit 35.6L , Mean Corpuscular Volume 93, Mean Corpuscular Hemoglobin 29.4, Mean Corpuscular Hemoglobin Concent 31.6L, Red Cell Distribution Width 16.0H, Platelet Count 381, Mean Platelet Volume 5.7L, Neutrophils (%) (Auto) 61.1, Lymphocytes (%) (Auto) 28.9, Monocytes (%) (Auto) 7.3, Eosinophils (%) (Auto) 2.0, Basophils (%) (Auto) 0.8, Erythrocyte Sedimentation Rate 37H, Sodium Level 134L, Potassium Level 5.1, Chloride Level 108H, Carbon Dioxide Level 14L, Anion Gap 12, Blood Urea Nitrogen 75H, Creatinine 4.9H, Estimat Glomerular Filtration Rate 12.1, Glucose Level 360#H, Calcium Level 8.0L, Phosphorus Level 4.7, Magnesium Level 1.7L, Total Bilirubin 0.3, Aspartate Amino Transf (AST/SGOT) 12L , Alanine Aminotransferase (ALT/SGPT) 14, Alkaline Phosphatase 109, C-Reactive Protein, Quantitative < 0.4, Total Protein 6.2L, Albumin 2.2L, Globulin 4.0, Albumin/Globulin Ratio 0.6L, Amylase Level 64, Lipase 554H Height (Feet): 5 Height (Inches): 9.00 Weight (Pounds): 176 General Appearance: alert EENT: normal ENT inspection Neck: supple Cardiovascular: normal rate Respiratory/Chest: decreased breath sounds Abdomen: normal bowel sounds, non tender, soft Extremities: non-tender PRANAY LISA Oct 13, 2017 11:19
--- NOTE | 2017-10-13 11:42 | Internal Med Progress Note ---
Subjective Date of Service: Oct 13, 2017 Physician Name Jose Maher Attending Physician Christopher Rosado MD Current Medications Medications (Trade) Dose Ordered Sig/Dunia Route PRN Reason Start Time Stop Time Status Last Admin Dose Admin Acetaminophen (Tylenol) 650 mg Q4H PRN ORAL T>100.5 10/12/17 13:00 11/10/17 04:59 Albuterol/ Ipratropium (Albuterol/ Ipratropium) 3 ml Q4H PRN HHN Shortness of Breath 10/12/17 13:00 10/16/17 04:59 Amlodipine Besylate (Norvasc) 5 mg DAILY ORAL 10/13/17 09:00 11/10/17 08:59 10/13/17 09:08 Dextrose (Dextrose 50%) 25 ml STAT PRN IV HYPOGLYCEMIA 10/13/17 09:30 11/12/17 09:29 Dextrose (Dextrose 50%) 50 ml STAT PRN IV Hypoglycemia 10/13/17 09:30 11/12/17 07:44 Docusate Sodium (Colace) 100 mg TWICE A DAY ORAL 10/13/17 18:00 11/12/17 17:59 UNV Duloxetine HCl (Cymbalta) 30 mg DAILY ORAL 10/13/17 09:00 11/10/17 08:59 10/13/17 09:08 Heparin Sodium (Porcine) (Heparin 5000 units/ml) 5,000 units EVERY 12 HOURS SUBQ 10/12/17 21:00 11/10/17 08:59 10/13/17 09:10 Insulin Aspart (NovoLOG) BEFORE MEALS AND HS SUBQ 10/12/17 16:30 11/10/17 16:29 10/13/17 06:32 Insulin Aspart (NovoLOG) 5 units NOVOTIAC SUBQ 10/13/17 07:15 11/12/17 07:14 10/13/17 09:16 Insulin Detemir (Levemir) 10 units BID SUBQ 10/13/17 09:00 11/12/17 08:59 10/13/17 09:16 Lansoprazole (Prevacid) 30 mg DAILY ORAL 10/13/17 09:00 11/10/17 10:29 10/13/17 09:08 Lorazepam (Ativan 2mg/ml 1ml) 2 mg Q2H PRN IV agitation 10/12/17 13:00 10/18/17 04:59 Metoprolol Succinate (Toprol XL) 50 mg Q12HR ORAL 10/12/17 21:00 11/10/17 08:59 10/13/17 09:08 Morphine Sulfate (Morphine Sulfate) 4 mg Q4H PRN IVP Severe Pain (Pain Scale 7-10) 10/12/17 13:00 10/18/17 04:59 Nitroglycerin (Ntg) 0.4 mg Q5M PRN SL Prn Chest Pain 10/12/17 13:00 11/10/17 12:59 Ondansetron HCl (Zofran) 4 mg Q6H PRN IVP Nausea & Vomiting 10/12/17 13:00 11/10/17 12:59 Polyethylene Glycol (Miralax) 17 gm BEDTIME ORAL 10/13/17 21:00 11/12/17 20:59 UNV Polyethylene Glycol (Miralax) 17 gm DAILYPRN PRN ORAL Constipation 10/12/17 13:00 11/11/17 12:59 Sevelamer Carbonate (Renvela) 800 mg THREE TIMES A DAY ORAL 10/12/17 13:00 11/10/17 08:59 10/13/17 09:08 Sodium Chloride 1,000 ml @ 100 mls/hr Q10H IV 10/12/17 13:00 11/10/17 12:59 10/13/17 09:08 Allergies: Coded Allergies: CEFEPIME (Verified Allergy, Intermediate, Rash, 01/23/13) ROS Limited/Unobtainable: No Constitutional: Reports: no symptoms HEENT: Reports: no symptoms Cardiovascular: Reports: no symptoms Respiratory: Reports: no symptoms Gastrointestinal/Abdominal: Reports: no symptoms Genitourinary: Reports: no symptoms Neurologic/Psychiatric: Reports: no symptoms Subjective 62 YO M admitted with diabetic ketoacidosis. Cover for Int Med-Dr Rosado. Off insulin drip Objective Last Vital Signs Date Time Temp Pulse Resp B/P (MAP) Pulse Ox O2 Delivery O2 Flow Rate FiO2 10/13/17 09:08 69 153/75 10/13/17 08:00 97.2 19 99 97.2 10/13/17 04:00 Room Air Laboratory Tests Test 10/13/17 08:30 White Blood Count 6.9 K/UL (4.8-10.8) Red Blood Count 3.82 M/UL (4.70-6.10) L Hemoglobin 11.2 G/DL (14.2-18.0) L Hematocrit 35.6 % (42.0-52.0) L Mean Corpuscular Volume 93 FL (80-99) Mean Corpuscular Hemoglobin 29.4 PG (27.0-31.0) Mean Corpuscular Hemoglobin Concent 31.6 G/DL (32.0-36.0) L Red Cell Distribution Width 16.0 % (11.6-14.8) H Platelet Count 381 K/UL (150-450) Mean Platelet Volume 5.7 FL (6.5-10.1) L Neutrophils (%) (Auto) 61.1 % (45.0-75.0) Lymphocytes (%) (Auto) 28.9 % (20.0-45.0) Monocytes (%) (Auto) 7.3 % (1.0-10.0) Eosinophils (%) (Auto) 2.0 % (0.0-3.0) Basophils (%) (Auto) 0.8 % (0.0-2.0) Erythrocyte Sedimentation Rate 37 MM/HR (0-20) H Sodium Level 134 MMOL/L (136-145) L Potassium Level 5.1 MMOL/L (3.5-5.1) Chloride Level 108 MMOL/L (98-107) H Carbon Dioxide Level 14 MMOL/L (21-32) L Anion Gap 12 mmol/L (5-15) Blood Urea Nitrogen 75 mg/dL (7-18) H Creatinine 4.9 MG/DL (0.55-1.30) H Estimat Glomerular Filtration Rate 12.1 mL/min (>60) Glucose Level 360 MG/DL (74-106) #H Calcium Level 8.0 MG/DL (8.5-10.1) L Phosphorus Level 4.7 MG/DL (2.5-4.9) Magnesium Level 1.7 MG/DL (1.8-2.4) L Total Bilirubin 0.3 MG/DL (0.2-1.0) Aspartate Amino Transf (AST/SGOT) 12 U/L (15-37) L Alanine Aminotransferase (ALT/SGPT) 14 U/L (12-78) Alkaline Phosphatase 109 U/L (46-116) C-Reactive Protein, Quantitative < 0.4 mg/dL (0.00-0.90) Total Protein 6.2 G/DL (6.4-8.2) L Albumin 2.2 G/DL (3.4-5.0) L Globulin 4.0 g/dL Albumin/Globulin Ratio 0.6 (1.0-2.7) L Amylase Level 64 U/L (25-115) Lipase 554 U/L (73-393) H Microbiology Date/Time Source Procedure Growth Status 10/11/17 01:24 Rectum VRE Culture - Final Enterococcus Faecium - Vre Complete Intake and Output 10/12/17 10/13/17 19:00 07:00 Intake Total 1510 ml 1320 ml Output Total 1150 ml 700 ml Balance 360 ml 620 ml Intake Oral 610 ml 120 ml IV Total 900 ml 1200 ml Output Urine Total 1150 ml 700 ml Objective General Appearance: WD/WN, no apparent distress, alert EENT: PERRL/EOMI, normal ENT inspection, TMs normal Neck: non-tender, normal alignment, supple Cardiovascular: normal peripheral pulses, normal rate, regular rhythm, no gallop/murmur, no JVD Respiratory/Chest: chest wall non-tender, lungs clear, normal breath sounds, no respiratory distress, no accessory muscle use Abdomen: normal bowel sounds, non tender, soft, no organomegaly, no mass Extremities: normal range of motion, non-tender Neurologic: licensed tax consultant II-XII grossly normal, no motor/sensory deficits Skin: normal pigmentation, warm/dry Assessment/Plan Problem List: (1) Uncontrolled diabetes mellitus Assessment & Plan: Await endocrinology consult. Continue Novolog sliding scale. (2) Hyperglycemia due to type 2 diabetes mellitus Assessment & Plan: Await endocrinology consult. Continue novolog sliding scale. (3) DKA (diabetic ketoacidoses) (4) BPH (benign prostatic hypertrophy) Assessment & Plan: S/P suprapubic cath (5) Pancreatitis Assessment & Plan: See GI note. (6) CKD (chronic kidney disease), stage III Assessment & Plan: See nephrology note. (7) Hypoparathyroidism (8) HTN (hypertension) Assessment & Plan: Continue norvasc (9) CAD (coronary artery disease) (10) Elevated lipase (11) Acute hyperglycemia (12) Anemia Status: progressing JOSE MAHER Oct 13, 2017 11:42
[2017-10-13 12:00] VITALS: BP 141/65
--- NOTE | 2017-10-13 12:51 | General Progress Note ---
Assessment/Plan Assessment/Plan mdd schizo cont Cymbalta the pt was provided ro/st Subjective Date patient seen: Oct 13, 2017 Neurologic/Psychiatric: Reports: anxiety, depressed, emotional problems Allergies: Coded Allergies: CEFEPIME (Verified Allergy, Intermediate, Rash, 01/23/13) Objective Last 24 Hour Vital Signs Date Time Temp Pulse Resp B/P (MAP) Pulse Ox O2 Delivery O2 Flow Rate FiO2 10/13/17 12:00 97.4 72 18 141/65 96 97.4 10/13/17 09:08 69 153/75 10/13/17 09:08 69 153/75 10/13/17 08:00 97.2 69 19 153/75 99 97.2 10/13/17 04:00 98.0 71 16 148/80 99 Room Air 98.0 10/13/17 00:07 97.9 70 16 130/69 96 Room Air 97.9 10/12/17 20:44 73 132/76 10/12/17 20:00 98.3 73 16 132/76 97 Room Air 98.3 10/12/17 16:00 98.2 67 19 151/74 97 Room Air 98.2 Intake and Output 10/12/17 10/13/17 19:00 07:00 Intake Total 1510 ml 1320 ml Output Total 1150 ml 700 ml Balance 360 ml 620 ml Intake Oral 610 ml 120 ml IV Total 900 ml 1200 ml Output Urine Total 1150 ml 700 ml Laboratory Tests 10/13/17 08:30: White Blood Count 6.9, Red Blood Count 3.82L, Hemoglobin 11.2L, Hematocrit 35.6L , Mean Corpuscular Volume 93, Mean Corpuscular Hemoglobin 29.4, Mean Corpuscular Hemoglobin Concent 31.6L, Red Cell Distribution Width 16.0H, Platelet Count 381, Mean Platelet Volume 5.7L, Neutrophils (%) (Auto) 61.1, Lymphocytes (%) (Auto) 28.9, Monocytes (%) (Auto) 7.3, Eosinophils (%) (Auto) 2.0, Basophils (%) (Auto) 0.8, Erythrocyte Sedimentation Rate 37H, Sodium Level 134L, Potassium Level 5.1, Chloride Level 108H, Carbon Dioxide Level 14L, Anion Gap 12, Blood Urea Nitrogen 75H, Creatinine 4.9H, Estimat Glomerular Filtration Rate 12.1, Glucose Level 360#H, Calcium Level 8.0L, Phosphorus Level 4.7, Magnesium Level 1.7L, Total Bilirubin 0.3, Aspartate Amino Transf (AST/SGOT) 12L , Alanine Aminotransferase (ALT/SGPT) 14, Alkaline Phosphatase 109, C-Reactive Protein, Quantitative < 0.4, Total Protein 6.2L, Albumin 2.2L, Globulin 4.0, Albumin/Globulin Ratio 0.6L, Amylase Level 64, Lipase 554H Height (Feet): 5 Height (Inches): 9.00 Weight (Pounds): 176 Fatmata Lu M.D. Oct 13, 2017 12:51
--- NOTE | 2017-10-13 13:27 | Nephrology Progress Note ---
Assessment/Plan Problem List: (1) Acute on chronic renal failure (2) Anemia in chronic kidney disease (3) Nephropathy, diabetic (4) BPH (benign prostatic hypertrophy) Assessment (1) CKD (chronic kidney disease), stage III, superimposed acute- Cr unchanged since last admit (2) Dehydration- Partly due to hyperglycemia / Vomiting (3) Hyperglycemia due to type 2 diabetes mellitus (4) BPH (benign prostatic hypertrophy) (5) Nephropathy, diabetic (6) History of simultaneous kidney and pancreas transplant (7) UTI (urinary tract infection) (8) Anemia of CKD Plan Has suprapubic cath avoid nephrotoxics BP and BS control- Flomax PO- monitor renal parameters Anemia pan[place] EPO SQ Subjective ROS Limited/Unobtainable: No Constitutional: Reports: malaise, weakness Objective Objective Last 24 Hour Vital Signs Date Time Temp Pulse Resp B/P (MAP) Pulse Ox O2 Delivery O2 Flow Rate FiO2 10/13/17 12:00 97.4 72 18 141/65 96 97.4 10/13/17 09:08 69 153/75 10/13/17 09:08 69 153/75 10/13/17 08:00 97.2 69 19 153/75 99 97.2 10/13/17 04:00 98.0 71 16 148/80 99 Room Air 98.0 10/13/17 00:07 97.9 70 16 130/69 96 Room Air 97.9 10/12/17 20:44 73 132/76 10/12/17 20:00 98.3 73 16 132/76 97 Room Air 98.3 10/12/17 16:00 98.2 67 19 151/74 97 Room Air 98.2 Intake and Output 10/12/17 10/13/17 19:00 07:00 Intake Total 1510 ml 1320 ml Output Total 1150 ml 700 ml Balance 360 ml 620 ml Intake Oral 610 ml 120 ml IV Total 900 ml 1200 ml Output Urine Total 1150 ml 700 ml Laboratory Tests 10/13/17 08:30: White Blood Count 6.9, Red Blood Count 3.82L, Hemoglobin 11.2L, Hematocrit 35.6L , Mean Corpuscular Volume 93, Mean Corpuscular Hemoglobin 29.4, Mean Corpuscular Hemoglobin Concent 31.6L, Red Cell Distribution Width 16.0H, Platelet Count 381, Mean Platelet Volume 5.7L, Neutrophils (%) (Auto) 61.1, Lymphocytes (%) (Auto) 28.9, Monocytes (%) (Auto) 7.3, Eosinophils (%) (Auto) 2.0, Basophils (%) (Auto) 0.8, Erythrocyte Sedimentation Rate 37H, Sodium Level 134L, Potassium Level 5.1, Chloride Level 108H, Carbon Dioxide Level 14L, Anion Gap 12, Blood Urea Nitrogen 75H, Creatinine 4.9H, Estimat Glomerular Filtration Rate 12.1, Glucose Level 360#H, Calcium Level 8.0L, Phosphorus Level 4.7, Magnesium Level 1.7L, Total Bilirubin 0.3, Aspartate Amino Transf (AST/SGOT) 12L , Alanine Aminotransferase (ALT/SGPT) 14, Alkaline Phosphatase 109, C-Reactive Protein, Quantitative < 0.4, Total Protein 6.2L, Albumin 2.2L, Globulin 4.0, Albumin/Globulin Ratio 0.6L, Amylase Level 64, Lipase 554H Height (Feet): 5 Height (Inches): 9.00 Weight (Pounds): 176 General Appearance: no apparent distress Cardiovascular: normal rate Respiratory/Chest: decreased breath sounds Abdomen: distended Objective no change BERT ALONSO Oct 13, 2017 13:27
[2017-10-13 15:55] VITALS: BP 134/70
[2017-10-13] MEDS: Docusate 100mg cap ORAL SCH (17:55)
--- NOTE | 2017-10-13 20:06 | Pulmonology Progress Note ---
Assessment/Plan Problems: (1) DKA (diabetic ketoacidoses) (2) Anemia (3) CKD (chronic kidney disease), stage III (4) Elevated lipase (5) Renal transplant recipient Assessment/Plan on levemir 10 BID and Novolog 5 TID improving watch h/h , gradually decreasing vre Rectum dvt prophylaxis dc planning soon. Subjective ROS Limited/Unobtainable: No Allergies: Coded Allergies: CEFEPIME (Verified Allergy, Intermediate, Rash, 01/23/13) Objective Last 24 Hour Vital Signs Date Time Temp Pulse Resp B/P (MAP) Pulse Ox O2 Delivery O2 Flow Rate FiO2 10/13/17 15:55 97.7 68 19 134/70 96 97.7 10/13/17 12:00 97.4 72 18 141/65 96 97.4 10/13/17 09:08 69 153/75 10/13/17 09:08 69 153/75 10/13/17 08:00 97.2 69 19 153/75 99 97.2 10/13/17 04:00 98.0 71 16 148/80 99 Room Air 98.0 10/13/17 00:07 97.9 70 16 130/69 96 Room Air 97.9 10/12/17 20:44 73 132/76 Intake and Output 10/12/17 10/13/17 19:00 07:00 Intake Total 1510 ml 1320 ml Output Total 1150 ml 700 ml Balance 360 ml 620 ml Intake Oral 610 ml 120 ml IV Total 900 ml 1200 ml Output Urine Total 1150 ml 700 ml Objective General Appearance: cachetic Lines, tubes and drains: peripheral HEENT: normocephalic, atraumatic Neck: non-tender, normal alignment Respiratory/Chest: chest wall non-tender, lungs clear Cardiovascular/Chest: normal peripheral pulses, regular rhythm, regularly irregular Abdomen: normal bowel sounds, non tender, soft, suprapubic catheter is better Extremities: normal range of motion, normal inspection Microbiology Date/Time Source Procedure Growth Status 10/11/17 01:24 Rectum VRE Culture - Final Enterococcus Faecium - Vre Complete Laboratory Tests 10/13/17 08:30: White Blood Count 6.9, Red Blood Count 3.82L, Hemoglobin 11.2L, Hematocrit 35.6L , Mean Corpuscular Volume 93, Mean Corpuscular Hemoglobin 29.4, Mean Corpuscular Hemoglobin Concent 31.6L, Red Cell Distribution Width 16.0H, Platelet Count 381, Mean Platelet Volume 5.7L, Neutrophils (%) (Auto) 61.1, Lymphocytes (%) (Auto) 28.9, Monocytes (%) (Auto) 7.3, Eosinophils (%) (Auto) 2.0, Basophils (%) (Auto) 0.8, Erythrocyte Sedimentation Rate 37H, Sodium Level 134L, Potassium Level 5.1, Chloride Level 108H, Carbon Dioxide Level 14L, Anion Gap 12, Blood Urea Nitrogen 75H, Creatinine 4.9H, Estimat Glomerular Filtration Rate 12.1, Glucose Level 360#H, Calcium Level 8.0L, Phosphorus Level 4.7, Magnesium Level 1.7L, Total Bilirubin 0.3, Aspartate Amino Transf (AST/SGOT) 12L , Alanine Aminotransferase (ALT/SGPT) 14, Alkaline Phosphatase 109, C-Reactive Protein, Quantitative < 0.4, Total Protein 6.2L, Albumin 2.2L, Globulin 4.0, Albumin/Globulin Ratio 0.6L, Amylase Level 64, Lipase 554H Current Medications Medications (Trade) Dose Ordered Sig/Dunia Route PRN Reason Start Time Stop Time Status Last Admin Dose Admin Acetaminophen (Tylenol) 650 mg Q4H PRN ORAL T>100.5 10/12/17 13:00 11/10/17 04:59 Albuterol/ Ipratropium (Albuterol/ Ipratropium) 3 ml Q4H PRN HHN Shortness of Breath 10/12/17 13:00 10/16/17 04:59 Amlodipine Besylate (Norvasc) 5 mg DAILY ORAL 10/13/17 09:00 11/10/17 08:59 10/13/17 09:08 Dextrose (Dextrose 50%) 25 ml STAT PRN IV HYPOGLYCEMIA 10/13/17 09:30 11/12/17 09:29 Dextrose (Dextrose 50%) 50 ml STAT PRN IV Hypoglycemia 10/13/17 09:30 11/12/17 07:44 Docusate Sodium (Colace) 100 mg TWICE A DAY ORAL 10/13/17 18:00 11/12/17 17:59 10/13/17 17:55 Duloxetine HCl (Cymbalta) 40 mg DAILY ORAL 10/14/17 09:00 11/13/17 08:59 Heparin Sodium (Porcine) (Heparin 5000 units/ml) 5,000 units EVERY 12 HOURS SUBQ 10/12/17 21:00 11/10/17 08:59 10/13/17 09:10 Insulin Aspart (NovoLOG) BEFORE MEALS AND HS SUBQ 10/12/17 16:30 11/10/17 16:29 10/13/17 12:23 Insulin Aspart (NovoLOG) 5 units NOVOTIAC SUBQ 10/13/17 07:15 11/12/17 07:14 10/13/17 12:17 Insulin Detemir (Levemir) 10 units BID SUBQ 10/13/17 09:00 11/12/17 08:59 10/13/17 17:55 Lansoprazole (Prevacid) 30 mg DAILY ORAL 10/13/17 09:00 11/10/17 10:29 10/13/17 09:08 Lorazepam (Ativan 2mg/ml 1ml) 2 mg Q2H PRN IV agitation 10/12/17 13:00 10/18/17 04:59 Metoprolol Succinate (Toprol XL) 50 mg Q12HR ORAL 10/12/17 21:00 11/10/17 08:59 10/13/17 09:08 Morphine Sulfate (Morphine Sulfate) 4 mg Q4H PRN IVP Severe Pain (Pain Scale 7-10) 10/12/17 13:00 10/18/17 04:59 Nitroglycerin (Ntg) 0.4 mg Q5M PRN SL Prn Chest Pain 10/12/17 13:00 11/10/17 12:59 Ondansetron HCl (Zofran) 4 mg Q6H PRN IVP Nausea & Vomiting 10/12/17 13:00 11/10/17 12:59 Polyethylene Glycol (Miralax) 17 gm BEDTIME ORAL 10/13/17 21:00 11/12/17 20:59 Polyethylene Glycol (Miralax) 17 gm DAILYPRN PRN ORAL Constipation 10/12/17 13:00 11/11/17 12:59 Sevelamer Carbonate (Renvela) 800 mg THREE TIMES A DAY ORAL 10/12/17 13:00 11/10/17 08:59 10/13/17 17:54 Sodium Chloride 1,000 ml @ 100 mls/hr Q10H IV 10/12/17 13:00 11/10/17 12:59 10/13/17 17:54 Esdras Delgado MD Oct 13, 2017 20:06
[2017-10-13 20:33] VITALS: BP 156/77
[2017-10-13] MEDS: Miralax 17gm pkt ORAL SCH (21:00)
[2017-10-14 00:05] VITALS: BP 144/71
[2017-10-14 04:00] VITALS: BP 156/83
[2017-10-14] MEDS: NovoLOG Insulin Flexpen SUBQ SCH ×7 (06:13→21:00)
--- NOTE | 2017-10-14 06:49 | General Progress Note ---
Assessment/Plan Problem List: (1) CKD (chronic kidney disease), stage III ICD Codes: N18.3 - Chronic kidney disease, stage 3 (moderate) SNOMED: 115447795 (2) DKA (diabetic ketoacidoses) ICD Codes: E13.10 - Other specified diabetes mellitus with ketoacidosis without coma SNOMED: 148805503 Assessment/Plan continue Levemir 10 units bid continue Novolog 5 units ac tid continue NISS ac / hs Subjective Allergies: Coded Allergies: CEFEPIME (Verified Allergy, Intermediate, Rash, 01/23/13) All Systems: reviewed and negative except above Subjective events noted - interval notes reviewed Objective Last 24 Hour Vital Signs Date Time Temp Pulse Resp B/P (MAP) Pulse Ox O2 Delivery O2 Flow Rate FiO2 10/14/17 04:00 97.9 67 17 156/83 98 97.9 10/14/17 00:05 98.1 62 17 144/71 96 98.1 10/13/17 21:01 69 156/77 10/13/17 20:33 98.1 69 18 156/77 96 98.1 10/13/17 15:55 97.7 68 19 134/70 96 97.7 10/13/17 12:00 97.4 72 18 141/65 96 97.4 10/13/17 09:08 69 153/75 10/13/17 09:08 69 153/75 10/13/17 08:00 97.2 69 19 153/75 99 97.2 Intake and Output 10/13/17 10/14/17 19:00 07:00 Intake Total 600 ml 1080 ml Output Total 1150 ml 1200 ml Balance -550 ml -120 ml Intake Oral 480 ml IV Total 600 ml 600 ml Output Urine Total 1150 ml 1200 ml # Voids 2 Laboratory Tests 10/13/17 08:30: White Blood Count 6.9, Red Blood Count 3.82L, Hemoglobin 11.2L, Hematocrit 35.6L , Mean Corpuscular Volume 93, Mean Corpuscular Hemoglobin 29.4, Mean Corpuscular Hemoglobin Concent 31.6L, Red Cell Distribution Width 16.0H, Platelet Count 381, Mean Platelet Volume 5.7L, Neutrophils (%) (Auto) 61.1, Lymphocytes (%) (Auto) 28.9, Monocytes (%) (Auto) 7.3, Eosinophils (%) (Auto) 2.0, Basophils (%) (Auto) 0.8, Erythrocyte Sedimentation Rate 37H, Sodium Level 134L, Potassium Level 5.1, Chloride Level 108H, Carbon Dioxide Level 14L, Anion Gap 12, Blood Urea Nitrogen 75H, Creatinine 4.9H, Estimat Glomerular Filtration Rate 12.1, Glucose Level 360#H, Calcium Level 8.0L, Phosphorus Level 4.7, Magnesium Level 1.7L, Total Bilirubin 0.3, Aspartate Amino Transf (AST/SGOT) 12L , Alanine Aminotransferase (ALT/SGPT) 14, Alkaline Phosphatase 109, C-Reactive Protein, Quantitative < 0.4, Total Protein 6.2L, Albumin 2.2L, Globulin 4.0, Albumin/Globulin Ratio 0.6L, Amylase Level 64, Lipase 554H Height (Feet): 5 Height (Inches): 9.00 Weight (Pounds): 176 General Appearance: no apparent distress Neck: normal alignment Cardiovascular: regular rhythm Respiratory/Chest: lungs clear Abdomen: normal bowel sounds Edema: 1+ Arm (L), 1+ Arm (R), 1+ Leg (L), 1+ Leg (R), 1+ Pedal (L), 1+ Pedal ( R), 1+ Generalized Objective Current Medications Medications (Trade) Dose Ordered Sig/Dunia Route PRN Reason Start Time Stop Time Status Last Admin Dose Admin Acetaminophen (Tylenol) 650 mg Q4H PRN ORAL T>100.5 10/12/17 13:00 11/10/17 04:59 Albuterol/ Ipratropium (Albuterol/ Ipratropium) 3 ml Q4H PRN HHN Shortness of Breath 10/12/17 13:00 10/16/17 04:59 Amlodipine Besylate (Norvasc) 5 mg DAILY ORAL 10/13/17 09:00 11/10/17 08:59 10/13/17 09:08 Dextrose (Dextrose 50%) 25 ml STAT PRN IV HYPOGLYCEMIA 10/13/17 09:30 11/12/17 09:29 Dextrose (Dextrose 50%) 50 ml STAT PRN IV Hypoglycemia 10/13/17 09:30 11/12/17 07:44 Docusate Sodium (Colace) 100 mg TWICE A DAY ORAL 10/13/17 18:00 11/12/17 17:59 10/13/17 17:55 Duloxetine HCl (Cymbalta) 40 mg DAILY ORAL 10/14/17 09:00 11/13/17 08:59 Heparin Sodium (Porcine) (Heparin 5000 units/ml) 5,000 units EVERY 12 HOURS SUBQ 10/12/17 21:00 11/10/17 08:59 10/13/17 21:02 Insulin Aspart (NovoLOG) BEFORE MEALS AND HS SUBQ 10/12/17 16:30 11/10/17 16:29 10/14/17 06:13 Insulin Aspart (NovoLOG) 5 units NOVOTIAC SUBQ 10/13/17 07:15 11/12/17 07:14 10/14/17 06:14 Insulin Detemir (Levemir) 10 units BID SUBQ 10/13/17 09:00 11/12/17 08:59 10/13/17 17:55 Lansoprazole (Prevacid) 30 mg DAILY ORAL 10/13/17 09:00 11/10/17 10:29 10/13/17 09:08 Lorazepam (Ativan 2mg/ml 1ml) 2 mg Q2H PRN IV agitation 10/12/17 13:00 10/18/17 04:59 Metoprolol Succinate (Toprol XL) 50 mg Q12HR ORAL 10/12/17 21:00 11/10/17 08:59 10/13/17 21:01 Morphine Sulfate (Morphine Sulfate) 4 mg Q4H PRN IVP Severe Pain (Pain Scale 7-10) 10/12/17 13:00 10/18/17 04:59 Nitroglycerin (Ntg) 0.4 mg Q5M PRN SL Prn Chest Pain 10/12/17 13:00 11/10/17 12:59 Ondansetron HCl (Zofran) 4 mg Q6H PRN IVP Nausea & Vomiting 10/12/17 13:00 11/10/17 12:59 Polyethylene Glycol (Miralax) 17 gm BEDTIME ORAL 10/13/17 21:00 11/12/17 20:59 10/13/17 21:00 Polyethylene Glycol (Miralax) 17 gm DAILYPRN PRN ORAL Constipation 10/12/17 13:00 11/11/17 12:59 Sevelamer Carbonate (Renvela) 800 mg THREE TIMES A DAY ORAL 10/12/17 13:00 11/10/17 08:59 10/13/17 17:54 Sodium Chloride 1,000 ml @ 100 mls/hr Q10H IV 10/12/17 13:00 11/10/17 12:59 10/14/17 04:16 Item Value Date Time Bedside Blood Glucose 210 mg/dl H 10/14/17 0614 Bedside Blood Glucose 209 mg/dl H 10/13/17 2103 Bedside Blood Glucose 115 mg/dl 10/13/17 1755 Bedside Blood Glucose 307 mg/dl H 10/13/17 1223 Bedside Blood Glucose 369 mg/dl H 10/13/17 0916 Bedside Blood Glucose 317 mg/dl H 10/13/17 0632 MALKA SHERIFF Oct 14, 2017 06:49
[2017-10-14 08:00] VITALS: BP 150/72
[2017-10-14 08:46] LABS: EOSINOPHILS % (AUTO) 3.4 % (0.0-3.0); HEMATOCRIT 38.1 % (42.0-52.0); HEMOGLOBIN 12.2 G/DL (14.2-18.0); LYMPHOCYTES % (AUTO) 30.6 % (20.0-45.0); MEAN CORPUSCULAR VOLUME 94 FL (80-99); MONOCYTES % (AUTO) 7.8 % (1.0-10.0); NEUTROPHILS % (AUTO) 57.2 % (45.0-75.0); PLATELET COUNT 427 K/UL (150-450); RED BLOOD COUNT 4.07 M/UL (4.70-6.10); RED CELL DISTRIBUTION WIDTH 16.4 % (11.6-14.8); WHITE BLOOD COUNT 7.2 K/UL (4.8-10.8)
[2017-10-14 08:56] LABS: ANION GAP 14 mmol/L (5-15); BLOOD UREA NITROGEN 67 mg/dL (7-18); CALCIUM 8.4 MG/DL (8.5-10.1); CARBON DIOXIDE 14 MMOL/L (21-32); CHLORIDE 111 MMOL/L (98-107); CREATININE 4.5 MG/DL (0.55-1.30); SODIUM 139 MMOL/L (136-145)
[2017-10-14 09:00] LABS: AMYLASE 88 U/L (25-115)
[2017-10-14] MEDS: Docusate 100mg cap ORAL SCH ×2 (09:04→17:37)
[2017-10-14] MEDS: Renvela 800mg Pkt ORAL SCH ×3 (09:04→17:37)
[2017-10-14] MEDS: Metoprolol Succinate XL 50mg tab ORAL SCH ×2 (09:06→21:33)
[2017-10-14] MEDS: Heparin 5000 units/ml inj SUBQ SCH ×2 (09:08→21:34)
[2017-10-14] MEDS: Levemir Flexpen SUBQ SCH ×2 (09:09→17:41)
[2017-10-14 12:00] VITALS: BP 168/88
--- NOTE | 2017-10-14 13:27 | General Progress Note ---
Assessment/Plan Problem List: (1) Anemia in chronic kidney disease ICD Codes: D63.1 - Anemia in chronic kidney disease; N03.9 - Anemia in chronic kidney disease SNOMED: 102573333 (2) HTN (hypertension) ICD Codes: I10 - HTN (hypertension) SNOMED: 90768025 (3) DM (diabetes mellitus) ICD Codes: E11.9 - Type 2 diabetes mellitus without complications SNOMED: 52229460 Assessment/Plan drop in H&H slowly check stool ob colace and miralax elevated lipase and normal amylase repeat lipase hold GI procedures for now Subjective ROS Limited/Unobtainable: Yes Allergies: Coded Allergies: CEFEPIME (Verified Allergy, Intermediate, Rash, 01/23/13) Subjective no c/o Objective Last 24 Hour Vital Signs Date Time Temp Pulse Resp B/P (MAP) Pulse Ox O2 Delivery O2 Flow Rate FiO2 10/14/17 12:00 98.0 64 19 168/88 98 Room Air 98.0 10/14/17 09:06 72 150/72 10/14/17 09:04 72 150/72 10/14/17 08:00 98.1 72 17 150/72 96 Room Air 98.1 10/14/17 07:55 89 18 Room Air 10/14/17 04:00 97.9 67 17 156/83 98 97.9 10/14/17 00:05 98.1 62 17 144/71 96 98.1 10/13/17 21:01 69 156/77 10/13/17 20:33 98.1 69 18 156/77 96 98.1 10/13/17 15:55 97.7 68 19 134/70 96 97.7 Intake and Output 10/13/17 10/14/17 19:00 07:00 Intake Total 600 ml 1180 ml Output Total 1150 ml 1200 ml Balance -550 ml -20 ml Intake Oral 480 ml IV Total 600 ml 700 ml Output Urine Total 1150 ml 1200 ml # Voids 2 Laboratory Tests 10/14/17 07:48: White Blood Count 7.2, Red Blood Count 4.07L, Hemoglobin 12.2L, Hematocrit 38.1L , Mean Corpuscular Volume 94, Mean Corpuscular Hemoglobin 30.0, Mean Corpuscular Hemoglobin Concent 32.1, Red Cell Distribution Width 16.4H, Platelet Count 427, Mean Platelet Volume 5.6L, Neutrophils (%) (Auto) 57.2, Lymphocytes (%) (Auto) 30.6, Monocytes (%) (Auto) 7.8, Eosinophils (%) (Auto) 3.4H, Basophils (%) (Auto) 1.0, Sodium Level 139, Potassium Level 4.0, Chloride Level 111H, Carbon Dioxide Level 14L, Anion Gap 14, Blood Urea Nitrogen 67H, Creatinine 4.5H, Estimat Glomerular Filtration Rate 13.3, Glucose Level 153#H, Calcium Level 8.4L, Amylase Level 88, Lipase 573H Height (Feet): 5 Height (Inches): 9.00 Weight (Pounds): 176 General Appearance: alert EENT: normal ENT inspection Neck: supple Cardiovascular: normal rate Respiratory/Chest: decreased breath sounds Abdomen: normal bowel sounds, non tender, soft Extremities: non-tender PRANAY LISA Oct 14, 2017 13:27
--- NOTE | 2017-10-14 14:43 | Nephrology Progress Note ---
Assessment/Plan Problem List: (1) Acute on chronic renal failure (2) Anemia in chronic kidney disease (3) Nephropathy, diabetic (4) BPH (benign prostatic hypertrophy) Assessment (1) CKD (chronic kidney disease), stage III, superimposed acute- Cr unchanged since last admit (2) Dehydration- Partly due to hyperglycemia / Vomiting (3) Hyperglycemia due to type 2 diabetes mellitus (4) BPH (benign prostatic hypertrophy) (5) Nephropathy, diabetic (6) History of simultaneous kidney and pancreas transplant (7) UTI (urinary tract infection) (8) Anemia of CKD Plan Has suprapubic cath avoid nephrotoxics BP and BS control- Flomax PO- monitor renal parameters Anemia [place] EPO SQ Subjective ROS Limited/Unobtainable: No Objective Objective Last 24 Hour Vital Signs Date Time Temp Pulse Resp B/P (MAP) Pulse Ox O2 Delivery O2 Flow Rate FiO2 10/14/17 12:00 98.0 64 19 168/88 98 Room Air 98.0 10/14/17 09:06 72 150/72 10/14/17 09:04 72 150/72 10/14/17 08:00 98.1 72 17 150/72 96 Room Air 98.1 10/14/17 07:55 89 18 Room Air 10/14/17 04:00 97.9 67 17 156/83 98 97.9 10/14/17 00:05 98.1 62 17 144/71 96 98.1 10/13/17 21:01 69 156/77 10/13/17 20:33 98.1 69 18 156/77 96 98.1 10/13/17 15:55 97.7 68 19 134/70 96 97.7 Intake and Output 10/13/17 10/14/17 18:59 06:59 Intake Total 500 ml 1180 ml Output Total 1150 ml 1200 ml Balance -650 ml -20 ml Intake Oral 480 ml IV Total 500 ml 700 ml Output Urine Total 1150 ml 1200 ml # Voids 2 Laboratory Tests 10/14/17 07:48: White Blood Count 7.2, Red Blood Count 4.07L, Hemoglobin 12.2L, Hematocrit 38.1L , Mean Corpuscular Volume 94, Mean Corpuscular Hemoglobin 30.0, Mean Corpuscular Hemoglobin Concent 32.1, Red Cell Distribution Width 16.4H, Platelet Count 427, Mean Platelet Volume 5.6L, Neutrophils (%) (Auto) 57.2, Lymphocytes (%) (Auto) 30.6, Monocytes (%) (Auto) 7.8, Eosinophils (%) (Auto) 3.4H, Basophils (%) (Auto) 1.0, Sodium Level 139, Potassium Level 4.0, Chloride Level 111H, Carbon Dioxide Level 14L, Anion Gap 14, Blood Urea Nitrogen 67H, Creatinine 4.5H, Estimat Glomerular Filtration Rate 13.3, Glucose Level 153#H, Calcium Level 8.4L, Amylase Level 88, Lipase 573H Height (Feet): 5 Height (Inches): 9.00 Weight (Pounds): 176 General Appearance: no apparent distress Cardiovascular: normal rate Respiratory/Chest: decreased breath sounds Abdomen: distended Objective no change BERT ALONSO Oct 14, 2017 14:43
[2017-10-14 16:00] VITALS: BP 135/77
--- NOTE | 2017-10-14 17:14 | Pulmonology Progress Note ---
Assessment/Plan Problems: (1) DKA (diabetic ketoacidoses) (2) Anemia (3) CKD (chronic kidney disease), stage III (4) Elevated lipase (5) Renal transplant recipient Assessment/Plan no new complains doing better on levemir 10 BID and Novolog 5 TID improving watch h/h , gradually decreasing, h;/h better today vre Rectum dvt prophylaxis dc planning soon. Subjective ROS Limited/Unobtainable: No Constitutional: Reports: no symptoms HEENT: Repors: no symptoms Respiratory: Reports: no symptoms Allergies: Coded Allergies: CEFEPIME (Verified Allergy, Intermediate, Rash, 01/23/13) Objective Last 24 Hour Vital Signs Date Time Temp Pulse Resp B/P (MAP) Pulse Ox O2 Delivery O2 Flow Rate FiO2 10/14/17 16:00 98.1 62 16 135/77 97 Room Air 98.1 10/14/17 12:00 98.0 64 19 168/88 98 Room Air 98.0 10/14/17 09:06 72 150/72 10/14/17 09:04 72 150/72 10/14/17 08:00 98.1 72 17 150/72 96 Room Air 98.1 10/14/17 07:55 89 18 Room Air 10/14/17 04:00 97.9 67 17 156/83 98 97.9 10/14/17 00:05 98.1 62 17 144/71 96 98.1 10/13/17 21:01 69 156/77 10/13/17 20:33 98.1 69 18 156/77 96 98.1 Intake and Output 10/13/17 10/14/17 19:00 07:00 Intake Total 600 ml 1180 ml Output Total 1150 ml 1200 ml Balance -550 ml -20 ml Intake Oral 480 ml IV Total 600 ml 700 ml Output Urine Total 1150 ml 1200 ml # Voids 2 Objective General Appearance: cachetic Lines, tubes and drains: peripheral HEENT: normocephalic, atraumatic Neck: non-tender, normal alignment Respiratory/Chest: chest wall non-tender, lungs clear Cardiovascular/Chest: normal peripheral pulses, regular rhythm, regularly irregular Abdomen: normal bowel sounds, non tender, soft, suprapubic catheter is better Extremities: normal range of motion, normal inspection Laboratory Tests 10/14/17 07:48: White Blood Count 7.2, Red Blood Count 4.07L, Hemoglobin 12.2L, Hematocrit 38.1L , Mean Corpuscular Volume 94, Mean Corpuscular Hemoglobin 30.0, Mean Corpuscular Hemoglobin Concent 32.1, Red Cell Distribution Width 16.4H, Platelet Count 427, Mean Platelet Volume 5.6L, Neutrophils (%) (Auto) 57.2, Lymphocytes (%) (Auto) 30.6, Monocytes (%) (Auto) 7.8, Eosinophils (%) (Auto) 3.4H, Basophils (%) (Auto) 1.0, Sodium Level 139, Potassium Level 4.0, Chloride Level 111H, Carbon Dioxide Level 14L, Anion Gap 14, Blood Urea Nitrogen 67H, Creatinine 4.5H, Estimat Glomerular Filtration Rate 13.3, Glucose Level 153#H, Calcium Level 8.4L, Amylase Level 88, Lipase 573H Current Medications Medications (Trade) Dose Ordered Sig/Dunia Route PRN Reason Start Time Stop Time Status Last Admin Dose Admin Acetaminophen (Tylenol) 650 mg Q4H PRN ORAL T>100.5 10/12/17 13:00 11/10/17 04:59 Albuterol/ Ipratropium (Albuterol/ Ipratropium) 3 ml Q4H PRN HHN Shortness of Breath 10/12/17 13:00 10/16/17 04:59 Amlodipine Besylate (Norvasc) 5 mg DAILY ORAL 10/13/17 09:00 11/10/17 08:59 10/14/17 09:04 Dextrose (Dextrose 50%) 25 ml STAT PRN IV HYPOGLYCEMIA 10/13/17 09:30 11/12/17 09:29 Dextrose (Dextrose 50%) 50 ml STAT PRN IV Hypoglycemia 10/13/17 09:30 11/12/17 07:44 Docusate Sodium (Colace) 100 mg TWICE A DAY ORAL 10/13/17 18:00 11/12/17 17:59 10/14/17 09:04 Duloxetine HCl (Cymbalta) 40 mg DAILY ORAL 10/14/17 09:00 11/13/17 08:59 10/14/17 09:04 Heparin Sodium (Porcine) (Heparin 5000 units/ml) 5,000 units EVERY 12 HOURS SUBQ 10/12/17 21:00 11/10/17 08:59 10/14/17 09:08 Insulin Aspart (NovoLOG) BEFORE MEALS AND HS SUBQ 10/12/17 16:30 11/10/17 16:29 10/14/17 11:33 Insulin Aspart (NovoLOG) 5 units NOVOTIAC SUBQ 10/13/17 07:15 11/12/17 07:14 10/14/17 11:34 Insulin Detemir (Levemir) 10 units BID SUBQ 10/13/17 09:00 11/12/17 08:59 10/14/17 09:09 Lansoprazole (Prevacid) 30 mg DAILY ORAL 10/13/17 09:00 11/10/17 10:29 10/14/17 09:05 Lorazepam (Ativan 2mg/ml 1ml) 2 mg Q2H PRN IV agitation 10/12/17 13:00 10/18/17 04:59 Metoprolol Succinate (Toprol XL) 50 mg Q12HR ORAL 10/12/17 21:00 11/10/17 08:59 10/14/17 09:06 Morphine Sulfate (Morphine Sulfate) 4 mg Q4H PRN IVP Severe Pain (Pain Scale 7-10) 10/12/17 13:00 10/18/17 04:59 Nitroglycerin (Ntg) 0.4 mg Q5M PRN SL Prn Chest Pain 10/12/17 13:00 11/10/17 12:59 Ondansetron HCl (Zofran) 4 mg Q6H PRN IVP Nausea & Vomiting 10/12/17 13:00 11/10/17 12:59 Polyethylene Glycol (Miralax) 17 gm BEDTIME ORAL 10/13/17 21:00 11/12/17 20:59 10/13/17 21:00 Polyethylene Glycol (Miralax) 17 gm DAILYPRN PRN ORAL Constipation 10/12/17 13:00 11/11/17 12:59 Sevelamer Carbonate (Renvela) 800 mg THREE TIMES A DAY ORAL 10/12/17 13:00 11/10/17 08:59 10/14/17 12:34 Sodium Chloride 1,000 ml @ 100 mls/hr Q10H IV 10/12/17 13:00 11/10/17 12:59 10/14/17 14:53 Esdras Delgado MD Oct 14, 2017 17:14
--- NOTE | 2017-10-14 19:07 | Internal Med Progress Note ---
Subjective Date of Service: Oct 14, 2017 Physician Name Dee Maher Attending Physician Christopher Rosado MD Current Medications Medications (Trade) Dose Ordered Sig/Dunia Route PRN Reason Start Time Stop Time Status Last Admin Dose Admin Acetaminophen (Tylenol) 650 mg Q4H PRN ORAL T>100.5 10/12/17 13:00 11/10/17 04:59 Albuterol/ Ipratropium (Albuterol/ Ipratropium) 3 ml Q4H PRN HHN Shortness of Breath 10/12/17 13:00 10/16/17 04:59 Amlodipine Besylate (Norvasc) 5 mg DAILY ORAL 10/13/17 09:00 11/10/17 08:59 10/14/17 09:04 Dextrose (Dextrose 50%) 25 ml STAT PRN IV HYPOGLYCEMIA 10/13/17 09:30 11/12/17 09:29 Dextrose (Dextrose 50%) 50 ml STAT PRN IV Hypoglycemia 10/13/17 09:30 11/12/17 07:44 Docusate Sodium (Colace) 100 mg TWICE A DAY ORAL 10/13/17 18:00 11/12/17 17:59 10/14/17 17:37 Duloxetine HCl (Cymbalta) 40 mg DAILY ORAL 10/14/17 09:00 11/13/17 08:59 10/14/17 09:04 Heparin Sodium (Porcine) (Heparin 5000 units/ml) 5,000 units EVERY 12 HOURS SUBQ 10/12/17 21:00 11/10/17 08:59 10/14/17 09:08 Insulin Aspart (NovoLOG) BEFORE MEALS AND HS SUBQ 10/12/17 16:30 11/10/17 16:29 10/14/17 11:33 Insulin Aspart (NovoLOG) 5 units NOVOTIAC SUBQ 10/13/17 07:15 11/12/17 07:14 10/14/17 17:40 Insulin Detemir (Levemir) 10 units BID SUBQ 10/13/17 09:00 11/12/17 08:59 10/14/17 17:41 Lansoprazole (Prevacid) 30 mg DAILY ORAL 10/13/17 09:00 11/10/17 10:29 10/14/17 09:05 Lorazepam (Ativan 2mg/ml 1ml) 2 mg Q2H PRN IV agitation 4/3/18 13:00 10/18/17 04:59 Metoprolol Succinate (Toprol XL) 50 mg Q12HR ORAL 10/12/17 21:00 11/10/17 08:59 10/14/17 09:06 Morphine Sulfate (Morphine Sulfate) 4 mg Q4H PRN IVP Severe Pain (Pain Scale 7-10) 10/12/17 13:00 10/18/17 04:59 Nitroglycerin (Ntg) 0.4 mg Q5M PRN SL Prn Chest Pain 10/12/17 13:00 11/10/17 12:59 Ondansetron HCl (Zofran) 4 mg Q6H PRN IVP Nausea & Vomiting 10/12/17 13:00 11/10/17 12:59 Polyethylene Glycol (Miralax) 17 gm BEDTIME ORAL 10/13/17 21:00 11/12/17 20:59 10/13/17 21:00 Polyethylene Glycol (Miralax) 17 gm DAILYPRN PRN ORAL Constipation 10/12/17 13:00 11/11/17 12:59 Sevelamer Carbonate (Renvela) 800 mg THREE TIMES A DAY ORAL 10/12/17 13:00 11/10/17 08:59 10/14/17 17:37 Sodium Chloride 1,000 ml @ 100 mls/hr Q10H IV 10/12/17 13:00 11/10/17 12:59 10/14/17 14:53 Allergies: Coded Allergies: CEFEPIME (Verified Allergy, Intermediate, Rash, 01/23/13) ROS Limited/Unobtainable: No Constitutional: Reports: no symptoms HEENT: Reports: no symptoms Cardiovascular: Reports: no symptoms Respiratory: Reports: no symptoms Gastrointestinal/Abdominal: Reports: no symptoms Genitourinary: Reports: no symptoms Neurologic/Psychiatric: Reports: no symptoms Subjective 62 YO M admitted with diabetic ketoacidosis. [facility] Rosado. Objective Last Vital Signs Date Time Temp Pulse Resp B/P (MAP) Pulse Ox O2 Delivery O2 Flow Rate FiO2 10/14/17 16:00 98.1 62 16 135/77 97 Room Air 98.1 Laboratory Tests Test 10/14/17 07:48 White Blood Count 7.2 K/UL (4.8-10.8) Red Blood Count 4.07 M/UL (4.70-6.10) L Hemoglobin 12.2 G/DL (14.2-18.0) L Hematocrit 38.1 % (42.0-52.0) L Mean Corpuscular Volume 94 FL (80-99) Mean Corpuscular Hemoglobin 30.0 PG (27.0-31.0) Mean Corpuscular Hemoglobin Concent 32.1 G/DL (32.0-36.0) Red Cell Distribution Width 16.4 % (11.6-14.8) H Platelet Count 427 K/UL (150-450) Mean Platelet Volume 5.6 FL (6.5-10.1) L Neutrophils (%) (Auto) 57.2 % (45.0-75.0) Lymphocytes (%) (Auto) 30.6 % (20.0-45.0) Monocytes (%) (Auto) 7.8 % (1.0-10.0) Eosinophils (%) (Auto) 3.4 % (0.0-3.0) H Basophils (%) (Auto) 1.0 % (0.0-2.0) Sodium Level 139 MMOL/L (136-145) Potassium Level 4.0 MMOL/L (3.5-5.1) Chloride Level 111 MMOL/L (98-107) H Carbon Dioxide Level 14 MMOL/L (21-32) L Anion Gap 14 mmol/L (5-15) Blood Urea Nitrogen 67 mg/dL (7-18) H Creatinine 4.5 MG/DL (0.55-1.30) H Estimat Glomerular Filtration Rate 13.3 mL/min (>60) Glucose Level 153 MG/DL (74-106) #H Calcium Level 8.4 MG/DL (8.5-10.1) L Amylase Level 88 U/L (25-115) Lipase 573 U/L (73-393) H Intake and Output 10/13/17 10/14/17 19:00 07:00 Intake Total 600 ml 1180 ml Output Total 1150 ml 1200 ml Balance -550 ml -20 ml Intake Oral 480 ml IV Total 600 ml 700 ml Output Urine Total 1150 ml 1200 ml # Voids 2 Objective General Appearance: WD/WN, no apparent distress, alert EENT: PERRL/EOMI, normal ENT inspection, TMs normal Neck: non-tender, normal alignment, supple Cardiovascular: normal peripheral pulses, normal rate, regular rhythm, no gallop/murmur, no JVD Respiratory/Chest: chest wall non-tender, lungs clear, normal breath sounds, no respiratory distress, no accessory muscle use Abdomen: normal bowel sounds, non tender, soft, no organomegaly, no mass Extremities: normal range of motion, non-tender Neurologic: media liaison officer II-XII grossly normal, no motor/sensory deficits Skin: normal pigmentation, warm/dry Assessment/Plan Problem List: (1) Uncontrolled diabetes mellitus Assessment & Plan: See endocrinology consult. Continue Levemir and Novolog sliding scale. (2) Hyperglycemia due to type 2 diabetes mellitus Assessment & Plan: Await endocrinology consult. Continue novolog sliding scale. (3) DKA (diabetic ketoacidoses) (4) BPH (benign prostatic hypertrophy) Assessment & Plan: S/P suprapubic cath (5) Pancreatitis Assessment & Plan: See GI note. (6) CKD (chronic kidney disease), stage III Assessment & Plan: See nephrology note. (7) Hypoparathyroidism (8) HTN (hypertension) Assessment & Plan: Continue norvasc (9) CAD (coronary artery disease) (10) Elevated lipase (11) Acute hyperglycemia (12) Anemia DEE MAHER Oct 14, 2017 19:07
[2017-10-14 20:00] VITALS: BP 135/69
[2017-10-14] MEDS: Miralax 17gm pkt ORAL SCH (21:32)
--- NOTE | 2017-10-14 23:13 | General Progress Note ---
Assessment/Plan Assessment/Plan mdd schizo cont Cymbalta the pt was provided ro/st Subjective Allergies: Coded Allergies: CEFEPIME (Verified Allergy, Intermediate, Rash, 01/23/13) Objective Last 24 Hour Vital Signs Date Time Temp Pulse Resp B/P (MAP) Pulse Ox O2 Delivery O2 Flow Rate FiO2 10/14/17 21:33 68 135/69 10/14/17 20:46 68 18 Room Air 10/14/17 20:00 97.3 69 20 135/69 98 97.3 10/14/17 16:00 98.1 62 16 135/77 97 Room Air 98.1 10/14/17 12:00 98.0 64 19 168/88 98 Room Air 98.0 10/14/17 09:06 72 150/72 10/14/17 09:04 72 150/72 10/14/17 08:00 98.1 72 17 150/72 96 Room Air 98.1 10/14/17 07:55 89 18 Room Air 10/14/17 04:00 97.9 67 17 156/83 98 97.9 10/14/17 00:05 98.1 62 17 144/71 96 98.1 Intake and Output 10/13/17 10/14/17 19:00 07:00 Intake Total 600 ml 1180 ml Output Total 1150 ml 1200 ml Balance -550 ml -20 ml Intake Oral 480 ml IV Total 600 ml 700 ml Output Urine Total 1150 ml 1200 ml # Voids 2 Laboratory Tests 10/14/17 07:48: White Blood Count 7.2, Red Blood Count 4.07L, Hemoglobin 12.2L, Hematocrit 38.1L , Mean Corpuscular Volume 94, Mean Corpuscular Hemoglobin 30.0, Mean Corpuscular Hemoglobin Concent 32.1, Red Cell Distribution Width 16.4H, Platelet Count 427, Mean Platelet Volume 5.6L, Neutrophils (%) (Auto) 57.2, Lymphocytes (%) (Auto) 30.6, Monocytes (%) (Auto) 7.8, Eosinophils (%) (Auto) 3.4H, Basophils (%) (Auto) 1.0, Sodium Level 139, Potassium Level 4.0, Chloride Level 111H, Carbon Dioxide Level 14L, Anion Gap 14, Blood Urea Nitrogen 67H, Creatinine 4.5H, Estimat Glomerular Filtration Rate 13.3, Glucose Level 153#H, Calcium Level 8.4L, Amylase Level 88, Lipase 573H Height (Feet): 5 Height (Inches): 9.00 Weight (Pounds): 176 Fatmata Lu M.D. Oct 14, 2017 23:13
[2017-10-15] VITALS: BP 150/86
[2017-10-15 04:00] VITALS: BP 158/84
[2017-10-15] MEDS: NovoLOG Insulin Flexpen SUBQ SCH ×6 (06:30→16:23)
--- NOTE | 2017-10-15 06:49 | General Progress Note ---
Assessment/Plan Problem List: (1) CKD (chronic kidney disease), stage III ICD Codes: N18.3 - Chronic kidney disease, stage 3 (moderate) SNOMED: 302288468 (2) DKA (diabetic ketoacidoses) ICD Codes: E13.10 - Other specified diabetes mellitus with ketoacidosis without coma SNOMED: 239698226 Assessment/Plan continue Levemir 10 units bid continue Novolog 5 units ac tid continue NISS ac / hs Subjective Allergies: Coded Allergies: CEFEPIME (Verified Allergy, Intermediate, Rash, 01/23/13) All Systems: reviewed and negative except above Subjective events noted - interval notes reviewed Objective Last 24 Hour Vital Signs Date Time Temp Pulse Resp B/P (MAP) Pulse Ox O2 Delivery O2 Flow Rate FiO2 10/15/17 04:00 97.4 60 18 158/84 100 97.4 10/15/17 00:00 97.6 72 18 150/86 99 97.6 10/14/17 21:33 68 135/69 10/14/17 20:46 68 18 Room Air 10/14/17 20:00 97.3 69 20 135/69 98 97.3 10/14/17 16:00 98.1 62 16 135/77 97 Room Air 98.1 10/14/17 12:00 98.0 64 19 168/88 98 Room Air 98.0 10/14/17 09:06 72 150/72 10/14/17 09:04 72 150/72 10/14/17 08:00 98.1 72 17 150/72 96 Room Air 98.1 10/14/17 07:55 89 18 Room Air Intake and Output 10/14/17 10/15/17 19:00 07:00 Intake Total 1850 ml 1000 ml Output Total 1800 ml Balance 50 ml 1000 ml Intake Oral 650 ml IV Total 1200 ml 1000 ml Output Urine Total 1800 ml Laboratory Tests 10/14/17 07:48: White Blood Count 7.2, Red Blood Count 4.07L, Hemoglobin 12.2L, Hematocrit 38.1L , Mean Corpuscular Volume 94, Mean Corpuscular Hemoglobin 30.0, Mean Corpuscular Hemoglobin Concent 32.1, Red Cell Distribution Width 16.4H, Platelet Count 427, Mean Platelet Volume 5.6L, Neutrophils (%) (Auto) 57.2, Lymphocytes (%) (Auto) 30.6, Monocytes (%) (Auto) 7.8, Eosinophils (%) (Auto) 3.4H, Basophils (%) (Auto) 1.0, Sodium Level 139, Potassium Level 4.0, Chloride Level 111H, Carbon Dioxide Level 14L, Anion Gap 14, Blood Urea Nitrogen 67H, Creatinine 4.5H, Estimat Glomerular Filtration Rate 13.3, Glucose Level 153#H, Calcium Level 8.4L, Amylase Level 88, Lipase 573H Height (Feet): 5 Height (Inches): 9.00 Weight (Pounds): 176 General Appearance: no apparent distress EENT: pale conjunctivae Cardiovascular: normal rate Respiratory/Chest: lungs clear Abdomen: normal bowel sounds Edema: 1+ Arm (L), 1+ Arm (R), 1+ Leg (L), 1+ Leg (R), 1+ Pedal (L), 1+ Pedal ( R), 1+ Generalized Objective Current Medications Medications (Trade) Dose Ordered Sig/Dunia Route PRN Reason Start Time Stop Time Status Last Admin Dose Admin Acetaminophen (Tylenol) 650 mg Q4H PRN ORAL T>100.5 10/12/17 13:00 11/10/17 04:59 Albuterol/ Ipratropium (Albuterol/ Ipratropium) 3 ml Q4H PRN HHN Shortness of Breath 10/12/17 13:00 10/16/17 04:59 Amlodipine Besylate (Norvasc) 5 mg DAILY ORAL 10/13/17 09:00 11/10/17 08:59 10/14/17 09:04 Dextrose (Dextrose 50%) 25 ml STAT PRN IV HYPOGLYCEMIA 10/13/17 09:30 11/12/17 09:29 Dextrose (Dextrose 50%) 50 ml STAT PRN IV Hypoglycemia 10/13/17 09:30 11/12/17 07:44 Docusate Sodium (Colace) 100 mg TWICE A DAY ORAL 10/13/17 18:00 11/12/17 17:59 10/14/17 17:37 Duloxetine HCl (Cymbalta) 40 mg DAILY ORAL 10/14/17 09:00 11/13/17 08:59 10/14/17 09:04 Heparin Sodium (Porcine) (Heparin 5000 units/ml) 5,000 units EVERY 12 HOURS SUBQ 10/12/17 21:00 11/10/17 08:59 10/14/17 21:34 Insulin Aspart (NovoLOG) BEFORE MEALS AND HS SUBQ 10/12/17 16:30 11/10/17 16:29 10/14/17 11:33 Insulin Aspart (NovoLOG) 5 units NOVOTIAC SUBQ 10/13/17 07:15 11/12/17 07:14 10/14/17 17:40 Insulin Detemir (Levemir) 10 units BID SUBQ 10/13/17 09:00 11/12/17 08:59 10/14/17 17:41 Lansoprazole (Prevacid) 30 mg DAILY ORAL 10/13/17 09:00 11/10/17 10:29 10/14/17 09:05 Lorazepam (Ativan 2mg/ml 1ml) 2 mg Q2H PRN IV agitation 10/12/17 13:00 10/18/17 04:59 Metoprolol Succinate (Toprol XL) 50 mg Q12HR ORAL 10/12/17 21:00 11/10/17 08:59 10/14/17 21:33 Morphine Sulfate (Morphine Sulfate) 4 mg Q4H PRN IVP Severe Pain (Pain Scale 7-10) 10/12/17 13:00 10/18/17 04:59 Nitroglycerin (Ntg) 0.4 mg Q5M PRN SL Prn Chest Pain 10/12/17 13:00 11/10/17 12:59 Ondansetron HCl (Zofran) 4 mg Q6H PRN IVP Nausea & Vomiting 10/12/17 13:00 11/10/17 12:59 Polyethylene Glycol (Miralax) 17 gm BEDTIME ORAL 10/13/17 21:00 11/12/17 20:59 10/14/17 21:32 Polyethylene Glycol (Miralax) 17 gm DAILYPRN PRN ORAL Constipation 10/12/17 13:00 11/11/17 12:59 Sevelamer Carbonate (Renvela) 800 mg THREE TIMES A DAY ORAL 10/12/17 13:00 11/10/17 08:59 10/14/17 17:37 Sodium Chloride 1,000 ml @ 100 mls/hr Q10H IV 10/12/17 13:00 11/10/17 12:59 10/15/17 01:00 Item Value Date Time Bedside Blood Glucose 91 mg/dl 10/15/17 0634 Bedside Blood Glucose 100 mg/dl 10/14/17 2100 Bedside Blood Glucose 143 mg/dl H 10/14/17 1854 Bedside Blood Glucose 139 mg/dl H 10/14/17 1134 Bedside Blood Glucose 210 mg/dl H 10/14/17 0909 Bedside Blood Glucose 210 mg/dl H 10/14/17 0630 MALKA SHERIFF Oct 15, 2017 06:49
[2017-10-15 08:00] VITALS: BP 160/79
[2017-10-15] MEDS: Docusate 100mg cap ORAL SCH ×2 (08:57→17:20)
[2017-10-15] MEDS: Heparin 5000 units/ml inj SUBQ SCH (08:59)
[2017-10-15] MEDS: Renvela 800mg Pkt ORAL SCH ×3 (09:00→17:20)
[2017-10-15] MEDS: Metoprolol Succinate XL 50mg tab ORAL SCH (09:00)
[2017-10-15] MEDS: Levemir Flexpen SUBQ SCH ×2 (09:42→17:24)
[2017-10-15 12:00] VITALS: BP 154/82
--- NOTE | 2017-10-15 12:17 | General Progress Note ---
Assessment/Plan Problem List: (1) Anemia in chronic kidney disease ICD Codes: D63.1 - Anemia in chronic kidney disease; N03.9 - Anemia in chronic kidney disease SNOMED: 148537449 (2) HTN (hypertension) ICD Codes: I10 - HTN (hypertension) SNOMED: 87473844 (3) DM (diabetes mellitus) ICD Codes: E11.9 - Type 2 diabetes mellitus without complications SNOMED: 26092016 Assessment/Plan stable H&H check stool ob colace and miralax elevated lipase and normal amylase>>>ordered us repeat lipase hold GI procedures for now Subjective ROS Limited/Unobtainable: Yes Allergies: Coded Allergies: CEFEPIME (Verified Allergy, Intermediate, Rash, 01/23/13) Subjective no c/o Objective Last 24 Hour Vital Signs Date Time Temp Pulse Resp B/P (MAP) Pulse Ox O2 Delivery O2 Flow Rate FiO2 10/15/17 09:00 62 160/77 10/15/17 08:59 62 160/77 10/15/17 08:00 98.3 62 20 160/79 99 Room Air 98.3 10/15/17 07:22 65 18 Room Air 10/15/17 04:00 97.4 60 18 158/84 100 97.4 10/15/17 00:00 97.6 72 18 150/86 99 97.6 10/14/17 21:33 68 135/69 10/14/17 20:46 68 18 Room Air 10/14/17 20:00 97.3 69 20 135/69 98 97.3 10/14/17 16:00 98.1 62 16 135/77 97 Room Air 98.1 Intake and Output 10/14/17 10/15/17 19:00 07:00 Intake Total 1850 ml 1100 ml Output Total 1800 ml 700 ml Balance 50 ml 400 ml Intake Oral 650 ml IV Total 1200 ml 1100 ml Output Urine Total 1800 ml 700 ml Height (Feet): 5 Height (Inches): 9.00 Weight (Pounds): 176 General Appearance: no apparent distress EENT: normal ENT inspection Neck: supple Cardiovascular: normal rate Respiratory/Chest: decreased breath sounds Abdomen: normal bowel sounds, non tender, soft Extremities: non-tender PRANAY LISA Oct 15, 2017 12:17
--- NOTE | 2017-10-15 15:56 | Nephrology Progress Note ---
Assessment/Plan Problem List: (1) Acute on chronic renal failure (2) Anemia in chronic kidney disease (3) Nephropathy, diabetic (4) BPH (benign prostatic hypertrophy) Assessment (1) CKD (chronic kidney disease), stage III, superimposed acute- Cr unchanged since last admit (2) Dehydration- Partly due to hyperglycemia / Vomiting (3) Hyperglycemia due to type 2 diabetes mellitus (4) BPH (benign prostatic hypertrophy) (5) Nephropathy, diabetic (6) History of simultaneous kidney and pancreas transplant (7) UTI (urinary tract infection) (8) Anemia of CKD Plan no labs today Has suprapubic cath avoid nephrotoxics BP and BS control- Flomax PO- monitor renal parameters Anemia [place] EPO SQ Subjective ROS Limited/Unobtainable: No Constitutional: Reports: malaise Objective Objective Last 24 Hour Vital Signs Date Time Temp Pulse Resp B/P (MAP) Pulse Ox O2 Delivery O2 Flow Rate FiO2 10/15/17 12:00 98.1 65 20 154/82 96 Room Air 98.1 10/15/17 09:00 62 160/77 10/15/17 08:59 62 160/77 10/15/17 08:00 98.3 62 20 160/79 99 Room Air 98.3 10/15/17 07:22 65 18 Room Air 10/15/17 04:00 97.4 60 18 158/84 100 97.4 10/15/17 00:00 97.6 72 18 150/86 99 97.6 10/14/17 21:33 68 135/69 10/14/17 20:46 68 18 Room Air 10/14/17 20:00 97.3 69 20 135/69 98 97.3 10/14/17 16:00 98.1 62 16 135/77 97 Room Air 98.1 Intake and Output 10/14/17 10/15/17 19:00 07:00 Intake Total 1850 ml 1100 ml Output Total 1800 ml 700 ml Balance 50 ml 400 ml Intake Oral 650 ml IV Total 1200 ml 1100 ml Output Urine Total 1800 ml 700 ml Height (Feet): 5 Height (Inches): 9.00 Weight (Pounds): 176 General Appearance: no apparent distress Objective no change BERT ALONSO Oct 15, 2017 15:56
[2017-10-15 16:10] VITALS: BP 120/60
--- NOTE | 2017-10-15 17:16 | Pulmonology Progress Note ---
Assessment/Plan Problems: (1) DKA (diabetic ketoacidoses) (2) Anemia (3) CKD (chronic kidney disease), stage III (4) Elevated lipase (5) Renal transplant recipient Assessment/Plan no new complains doing better on levemir 10 BID and Novolog 5 TID improving watch h/h , gradually decreasing, h;/h better today vre Rectum dvt prophylaxis dc planning for today Subjective ROS Limited/Unobtainable: No Constitutional: Reports: no symptoms HEENT: Repors: no symptoms Respiratory: Reports: no symptoms Allergies: Coded Allergies: CEFEPIME (Verified Allergy, Intermediate, Rash, 01/23/13) Objective Last 24 Hour Vital Signs Date Time Temp Pulse Resp B/P (MAP) Pulse Ox O2 Delivery O2 Flow Rate FiO2 10/15/17 16:10 98.2 63 18 120/60 97 Room Air 98.2 10/15/17 12:00 98.1 65 20 154/82 96 Room Air 98.1 10/15/17 09:00 62 160/77 10/15/17 08:59 62 160/77 10/15/17 08:00 98.3 62 20 160/79 99 Room Air 98.3 10/15/17 07:22 65 18 Room Air 10/15/17 04:00 97.4 60 18 158/84 100 97.4 10/15/17 00:00 97.6 72 18 150/86 99 97.6 10/14/17 21:33 68 135/69 10/14/17 20:46 68 18 Room Air 10/14/17 20:00 97.3 69 20 135/69 98 97.3 Intake and Output 10/14/17 10/15/17 19:00 07:00 Intake Total 1850 ml 1100 ml Output Total 1800 ml 700 ml Balance 50 ml 400 ml Intake Oral 650 ml IV Total 1200 ml 1100 ml Output Urine Total 1800 ml 700 ml Objective General Appearance: cachetic Lines, tubes and drains: peripheral HEENT: normocephalic, atraumatic Neck: non-tender, normal alignment Respiratory/Chest: chest wall non-tender, lungs clear Cardiovascular/Chest: normal peripheral pulses, regular rhythm, regularly irregular Abdomen: normal bowel sounds, non tender, soft, suprapubic catheter is better Extremities: normal range of motion, normal inspection Current Medications Medications (Trade) Dose Ordered Sig/Dunia Route PRN Reason Start Time Stop Time Status Last Admin Dose Admin Acetaminophen (Tylenol) 650 mg Q4H PRN ORAL T>100.5 10/12/17 13:00 11/10/17 04:59 Albuterol/ Ipratropium (Albuterol/ Ipratropium) 3 ml Q4H PRN HHN Shortness of Breath 10/12/17 13:00 10/16/17 04:59 Amlodipine Besylate (Norvasc) 5 mg DAILY ORAL 10/13/17 09:00 11/10/17 08:59 10/15/17 08:59 Dextrose (Dextrose 50%) 25 ml STAT PRN IV HYPOGLYCEMIA 10/13/17 09:30 11/12/17 09:29 Dextrose (Dextrose 50%) 50 ml STAT PRN IV Hypoglycemia 10/13/17 09:30 11/12/17 07:44 Docusate Sodium (Colace) 100 mg TWICE A DAY ORAL 10/13/17 18:00 11/12/17 17:59 10/15/17 08:57 Duloxetine HCl (Cymbalta) 40 mg DAILY ORAL 10/14/17 09:00 11/13/17 08:59 10/15/17 09:00 Heparin Sodium (Porcine) (Heparin 5000 units/ml) 5,000 units EVERY 12 HOURS SUBQ 10/12/17 21:00 11/10/17 08:59 10/15/17 08:59 Insulin Aspart (NovoLOG) BEFORE MEALS AND HS SUBQ 10/12/17 16:30 11/10/17 16:29 10/15/17 16:23 Insulin Aspart (NovoLOG) 5 units NOVOTIAC SUBQ 10/13/17 07:15 11/12/17 07:14 10/15/17 16:22 Insulin Detemir (Levemir) 10 units BID SUBQ 10/13/17 09:00 11/12/17 08:59 10/15/17 09:42 Lansoprazole (Prevacid) 30 mg DAILY ORAL 10/13/17 09:00 11/10/17 10:29 10/15/17 08:59 Lorazepam (Ativan 2mg/ml 1ml) 2 mg Q2H PRN IV agitation 10/12/17 13:00 10/18/17 04:59 Metoprolol Succinate (Toprol XL) 50 mg Q12HR ORAL 10/12/17 21:00 11/10/17 08:59 10/15/17 09:00 Morphine Sulfate (Morphine Sulfate) 4 mg Q4H PRN IVP Severe Pain (Pain Scale 7-10) 10/12/17 13:00 10/18/17 04:59 Nitroglycerin (Ntg) 0.4 mg Q5M PRN SL Prn Chest Pain 10/12/17 13:00 11/10/17 12:59 Ondansetron HCl (Zofran) 4 mg Q6H PRN IVP Nausea & Vomiting 10/12/17 13:00 11/10/17 12:59 Polyethylene Glycol (Miralax) 17 gm BEDTIME ORAL 10/13/17 21:00 11/12/17 20:59 10/14/17 21:32 Polyethylene Glycol (Miralax) 17 gm DAILYPRN PRN ORAL Constipation 10/12/17 13:00 11/11/17 12:59 Sevelamer Carbonate (Renvela) 800 mg THREE TIMES A DAY ORAL 10/12/17 13:00 11/10/17 08:59 10/15/17 12:12 Sodium Chloride 1,000 ml @ 100 mls/hr Q10H IV 10/12/17 13:00 11/10/17 12:59 10/15/17 12:06 Esdras Delgado MD Oct 15, 2017 17:16
--- NOTE | 2017-10-15 17:49 | Internal Med Progress Note ---
Subjective Date of Service: Oct 15, 2017 Physician Name Dee Maher Attending Physician Christopher Rosado MD Current Medications Medications (Trade) Dose Ordered Sig/Dunia Route PRN Reason Start Time Stop Time Status Last Admin Dose Admin Acetaminophen (Tylenol) 650 mg Q4H PRN ORAL T>100.5 10/12/17 13:00 11/10/17 04:59 Albuterol/ Ipratropium (Albuterol/ Ipratropium) 3 ml Q4H PRN HHN Shortness of Breath 10/12/17 13:00 10/16/17 04:59 Amlodipine Besylate (Norvasc) 5 mg DAILY ORAL 10/13/17 09:00 11/10/17 08:59 10/15/17 08:59 Dextrose (Dextrose 50%) 25 ml STAT PRN IV HYPOGLYCEMIA 10/13/17 09:30 11/12/17 09:29 Dextrose (Dextrose 50%) 50 ml STAT PRN IV Hypoglycemia 10/13/17 09:30 11/12/17 07:44 Docusate Sodium (Colace) 100 mg TWICE A DAY ORAL 10/13/17 18:00 11/12/17 17:59 10/15/17 17:20 Duloxetine HCl (Cymbalta) 40 mg DAILY ORAL 10/14/17 09:00 11/13/17 08:59 10/15/17 09:00 Heparin Sodium (Porcine) (Heparin 5000 units/ml) 5,000 units EVERY 12 HOURS SUBQ 10/12/17 21:00 11/10/17 08:59 10/15/17 08:59 Insulin Aspart (NovoLOG) BEFORE MEALS AND HS SUBQ 10/12/17 16:30 11/10/17 16:29 10/15/17 16:23 Insulin Aspart (NovoLOG) 5 units NOVOTIAC SUBQ 10/13/17 07:15 11/12/17 07:14 10/15/17 16:22 Insulin Detemir (Levemir) 10 units BID SUBQ 10/13/17 09:00 11/12/17 08:59 10/15/17 17:24 Lansoprazole (Prevacid) 30 mg DAILY ORAL 10/13/17 09:00 11/10/17 10:29 10/15/17 08:59 Lorazepam (Ativan 2mg/ml 1ml) 2 mg Q2H PRN IV agitation 4/3/18 13:00 10/18/17 04:59 Metoprolol Succinate (Toprol XL) 50 mg Q12HR ORAL 10/12/17 21:00 11/10/17 08:59 10/15/17 09:00 Morphine Sulfate (Morphine Sulfate) 4 mg Q4H PRN IVP Severe Pain (Pain Scale 7-10) 10/12/17 13:00 10/18/17 04:59 Nitroglycerin (Ntg) 0.4 mg Q5M PRN SL Prn Chest Pain 10/12/17 13:00 11/10/17 12:59 Ondansetron HCl (Zofran) 4 mg Q6H PRN IVP Nausea & Vomiting 10/12/17 13:00 11/10/17 12:59 Polyethylene Glycol (Miralax) 17 gm BEDTIME ORAL 10/13/17 21:00 11/12/17 20:59 10/14/17 21:32 Polyethylene Glycol (Miralax) 17 gm DAILYPRN PRN ORAL Constipation 10/12/17 13:00 11/11/17 12:59 Sevelamer Carbonate (Renvela) 800 mg THREE TIMES A DAY ORAL 10/12/17 13:00 11/10/17 08:59 10/15/17 17:20 Sodium Chloride 1,000 ml @ 100 mls/hr Q10H IV 10/12/17 13:00 11/10/17 12:59 10/15/17 12:06 Allergies: Coded Allergies: CEFEPIME (Verified Allergy, Intermediate, Rash, 01/23/13) ROS Limited/Unobtainable: No Constitutional: Reports: no symptoms HEENT: Reports: no symptoms Cardiovascular: Reports: no symptoms Respiratory: Reports: no symptoms Gastrointestinal/Abdominal: Reports: no symptoms Genitourinary: Reports: no symptoms Neurologic/Psychiatric: Reports: no symptoms Subjective 62 YO M admitted with diabetic ketoacidosis. Cover for Pending Sale To [facility]-Dr Rsoado. Objective Last Vital Signs Date Time Temp Pulse Resp B/P (MAP) Pulse Ox O2 Delivery O2 Flow Rate FiO2 10/15/17 16:10 98.2 63 18 120/60 97 Room Air 98.2 Intake and Output 10/14/17 10/15/17 19:00 07:00 Intake Total 1850 ml 1100 ml Output Total 1800 ml 700 ml Balance 50 ml 400 ml Intake Oral 650 ml IV Total 1200 ml 1100 ml Output Urine Total 1800 ml 700 ml Objective General Appearance: WD/WN, no apparent distress, alert EENT: PERRL/EOMI, normal ENT inspection, TMs normal Neck: non-tender, normal alignment, supple Cardiovascular: normal peripheral pulses, normal rate, regular rhythm, no gallop/murmur, no JVD Respiratory/Chest: chest wall non-tender, lungs clear, normal breath sounds, no respiratory distress, no accessory muscle use Abdomen: normal bowel sounds, non tender, soft, no organomegaly, no mass Extremities: normal range of motion, non-tender Neurologic: healthcare business analyst II-XII grossly normal, no motor/sensory deficits Skin: normal pigmentation, warm/dry Assessment/Plan Problem List: (1) Uncontrolled diabetes mellitus Assessment & Plan: See endocrinology consult. Continue Levemir and Novolog sliding scale. (2) Hyperglycemia due to type 2 diabetes mellitus Assessment & Plan: Await endocrinology consult. Continue novolog sliding scale. (3) DKA (diabetic ketoacidoses) (4) BPH (benign prostatic hypertrophy) Assessment & Plan: S/P suprapubic cath (5) Pancreatitis Assessment & Plan: See GI note. (6) CKD (chronic kidney disease), stage III Assessment & Plan: See nephrology note. (7) Hypoparathyroidism (8) HTN (hypertension) Assessment & Plan: Continue norvasc (9) CAD (coronary artery disease) (10) Elevated lipase (11) Acute hyperglycemia (12) Anemia Status: not improved DEE MAHER Oct 15, 2017 17:49
--- NOTE | 2017-10-15 18:55 | General Progress Note ---
Assessment/Plan Status: stable, progressing Assessment/Plan mdd schizo cont Cymbalta the pt was provided ro/st Subjective Date patient seen: Oct 15, 2017 Neurologic/Psychiatric: Reports: anxiety, depressed, emotional problems Allergies: Coded Allergies: CEFEPIME (Verified Allergy, Intermediate, Rash, 01/23/13) Objective Last 24 Hour Vital Signs Date Time Temp Pulse Resp B/P (MAP) Pulse Ox O2 Delivery O2 Flow Rate FiO2 10/15/17 16:10 98.2 63 18 120/60 97 Room Air 98.2 10/15/17 12:00 98.1 65 20 154/82 96 Room Air 98.1 10/15/17 09:00 62 160/77 10/15/17 08:59 62 160/77 10/15/17 08:00 98.3 62 20 160/79 99 Room Air 98.3 10/15/17 07:22 65 18 Room Air 10/15/17 04:00 97.4 60 18 158/84 100 97.4 10/15/17 00:00 97.6 72 18 150/86 99 97.6 10/14/17 21:33 68 135/69 10/14/17 20:46 68 18 Room Air 10/14/17 20:00 97.3 69 20 135/69 98 97.3 Intake and Output 10/14/17 10/15/17 19:00 07:00 Intake Total 1850 ml 1100 ml Output Total 1800 ml 700 ml Balance 50 ml 400 ml Intake Oral 650 ml IV Total 1200 ml 1100 ml Output Urine Total 1800 ml 700 ml Height (Feet): 5 Height (Inches): 9.00 Weight (Pounds): 176 General Appearance: no apparent distress, alert Neurologic: oriented x 3, responsive, depressed affect Fatmata Lu M.D. Oct 15, 2017 18:55
--- NOTE | 2017-10-16 12:54 | Discharge Summary ---
Discharge Summary Discharge Summary Discharge Summary DATE OF ADMISSION: 10/11/2017 DATE OF DISCHARGE: 10/15/2017 REASON FOR ADMISSION: 62 years old male with past medical history of diabetes, hypertension, simultaneous kidney and pancreas transplant, chronic kidney disease, anemia, depression, ,schizophrenia, DNR/DNI status , presented to ED with complaints of nausea, vomiting and elevated blood sugar. Patient had similar symptoms in the past. Patient reported vomiting 2 nonbloody, nonbilious. Laboratory workup revealed severe hyperglycemia, blood sugar- 875 with metabolic acidosis. Sodium -125 anion gap- 17, CO2 -15; urinalysis with no evidence of UTI . ABG with pH -7.25, PCO2 -26 , lipase -810. EKG revealed normal sinus rhythm, no acute ischemic changes. Chest x-ray revealed no acute cardiopulmonary pathology. Patient admitted with diagnosie of diabetic ketoacidosis, acute on chronic renal failure, elevated lipase, possible pancreatitis, hypertension, anemia. CONSULTANTS: critical care/pulmonary- Dr. Delgado qa test lead- dr Jacques GI specialist- Dr. Lorne Agee diamond driller helper- Dr. Chambers psychiatrist -Dr. Lu [facility]: Patient initially admitted to ICU for diabetic ketoacidosis. bed control specialist followed. Patient started on insulin drip and IV hydration as per protocol. Patient was on the IV insulin until on anion gap closed. Insulin drip then was discontinued, and patient was transitioned to long and short acting insulin. Inspector Elevators closely followed. Patient was on regimen of long-acting Levemir and short-acting pre-meal NovoLog as well as the sliding scale of insulin as needed. Hemoglobin A1c -7.6. Forest Technician closely followed. Renal parameters and electrolytes were closely monitored. Electrolytes were corrected as needed. Nephrotoxics were avoided. . Creatinine from initial 5.7 down to 4.5, consistent with baseline for this patient, responded to intravenous hydration. Sodium up to normal. Hemoglobin and hematocrit were closely monitored. Patient was on Epogen. No need for transfusion at this time. Goal to keep hemoglobin above 7. Blood pressure was managed with calcium channel annie and beta annie, remained stable. GI closely followed patient . Patient initially had elevated lipase and normal amylase. Patient declined abdominal ultrasound. As patient clinically improved, he was able to eat, no nausea, no vomiting. Nausea and vomiting were likely related to the diabetic ketoacidosis. Lipase trending down, amylase within normal limits . GI recommended to hold GI procedure at this time , continue bowel regimen and monitor counts closely. Supplemental oxygen provided as needed to keep pulse oximetry above 92%. Pulmonary toilet was on standby as needed. DVT prophylaxis provided. Psychiatrist seen and evaluated the patient . Patient with diagnoses of schizophrenia and major depressive disorder. Patient was continued on Cymbalta. Patient was clinically improved and was stable for discharge back to half-way facility FINAL DIAGNOSES: Diabetic ketoacidosis Chronic kidney disease stage III, with superimposed acute Dehydration Anemia of chronic kidney disease Diabetic nephropathy History of simultaneous kidney and pancreas transplant Schizophrenia Major depressive disorder DISCHARGE MEDICATIONS: See Medication Reconciliation list. DISCHARGE INSTRUCTIONS: Patient was discharged to the half-way facility. Follow up with medical doctor at the facility. I have been assigned to dictate discharge summary for this account. I was not involved in the patient's management. Catherine Griffin NP ([place]) Oct 16, 2017 12:54
== END 2017-10-15 20:08 | DRG 637 ==
LOC: EDBD 21:46 → EMR 22:24 → ICU 10-11 00:45 → EDBEDREQ 10-11 03:43 → 4E 10-12 12:40
DX: E11.10 Type 2 diabetes mellitus with ketoacidosis without coma (principal); K85.90 Acute pancreatitis without necrosis or infection, unspecified; Z94.0 Kidney transplant status; N17.9 Acute kidney failure, unspecified; N39.0 Urinary tract infection, site not specified; Z94.83 Pancreas transplant status; E11.22 Type 2 diabetes mellitus with diabetic chronic kidney disease; E11.65 Type 2 diabetes mellitus with hyperglycemia; E86.0 Dehydration; E11.21 Type 2 diabetes mellitus with diabetic nephropathy; Q78.9 Osteochondrodysplasia, unspecified; I25.10 Atherosclerotic heart disease of native coronary artery without angina pectoris; Z95.5 Presence of coronary angioplasty implant and graft; I25.2 Old myocardial infarction; H54.62 Unqualified visual loss, left eye, normal vision right eye; N40.0 Benign prostatic hyperplasia without lower urinary tract symptoms; E78.00 Pure hypercholesterolemia, unspecified; F32.9 Major depressive disorder, single episode, unspecified; N18.9 Chronic kidney disease, unspecified; D63.1 Anemia in chronic kidney disease; N18.3 Chronic kidney disease, stage 3 (moderate); Z88.8 Allergy status to other drugs, medicaments and biological substances; E20.9 Hypoparathyroidism, unspecified; F20.9 Schizophrenia, unspecified; Z66 Do not resuscitate
CPT/HCPCS: 36415; 36600; 71045; 80048; 80053; 80076; 81003; 82150; 82803; 82962; 82977; 83036; 83690; 83735; 83880; 84100; 84484; 84550; 85007; 85025; 85651; 86140; 87081; 93005; 94664; 99285; J1815; J2405; S5561

== ENCOUNTER 2017-10-29 19:58 | Inpatient (IN) | payer MEDICARE, MEDICAID ==
[~2017-10-29] VITALS: Ht 177.8 cm; Wt 77.1 kg
[~2017-10-29 19:58] MED LIST changes: +COUMADIN5 MG ORAL
[2017-10-29] MEDS ORDERED: LORazepam Inj 2mg/ml 1ml IM ONE (20:30)
[2017-10-29 20:34] VITALS: BP 128/59
--- NOTE | 2017-10-29 20:48 | Emergency Room Report ---
History of Present Illness General Chief Complaint: Abnormal Labs Source: Patient Present Illness HPI 62-year-old male presents ED for evaluation. Patient brought from [facility] facility for abnormal labs. Reportedly sugars are not well controlled and bacteremia. Patient also complaining of weakness and poor appetite for the last 3 days. Afebrile in triage. Accu-Chek in the 400s. Patient has significant psych history. Patient is DO NOT RESUSCITATE, selective treatment only. Patient is a poor historian otherwise and not providing any additional history at this time. No signs of distress upon arrival. No reported chest pain or shortness of breath. No other aggravating relieving factors. No other associated symptoms Allergies: Coded Allergies: CEFEPIME (Verified Allergy, Intermediate, Rash, 01/23/13) Patient History Past Medical History: DM, HTN, SD, CAD, psych hx, other - encephalopathy Pertinent Family History: none Social History: Denies: smoking, alcohol use, drug use Immunizations: UTD Reviewed Nursing Documentation: PMH: Agreed; PSxH: Agreed Nursing Documentation-PMH Past Medical History: No Stated History Hx Cardiac Problems: Yes - anemia, CAD post stent placement [id number], nstemi MIx3 Hx Hypertension: Yes - left eye blindness, hypercholesterolemia Hx Pacemaker: No Hx Asthma: Yes Hx COPD: Yes Hx Diabetes: Yes - DMII, hx dka Hx Cancer: Yes - kidney and panreas ca Hx Neurological Problems: No Hx Cerebrovascular Accident: Yes Hx Transient Ischemic Attacks: No Hx Dementia: No Hx Alzheimer's Disease: No Hx Parkinson's Disease: No Hx Meningitis: No Hx Encephalitis: Yes - 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 ATTEMPT Hx Seizures: No Hx Epilepsy: No Hx Multiple Sclerosis: No Hx Cerebral Palsy: No Hx Amyotrophic Lat Sclerosis: No Hx Guillian-Sequim Syndrome: No Hx Paralysis: No Hx Peripheral Neuropathy: No Hx Spinal Cord Injury: No Hx Head Trauma: No Hx Traumatic Brain Injury: No Hx Memory Loss: No Hx Concentration Difficulty: No Hx Speech Problem: No Hx Tremors: No Hx Vertigo: No Hx Dizziness: Yes Hx Syncope: No Hx Headaches: No Hx Aphasia: No Hx Dysphasia: No Hx Numbness: No Hx Weakness: No Hx Fatigue: No Hx Neurologic Surgery: No Hx Brain Shunt: No Review of Systems All Other Systems: limited Physical Exam Vital Signs Date Time Temp Pulse Resp B/P (MAP) Pulse Ox O2 Delivery O2 Flow Rate FiO2 4/20/18 19:58 68 18 124/52 99 Room Air Sp02 EP Interpretation: reviewed, normal General Appearance: no apparent distress, GCS 15, non-toxic, lethargic Head: normocephalic Eyes: bilateral eye normal inspection, bilateral eye PERRL ENT: normal ENT inspection Neck: normal inspection Respiratory: chest non-tender, lungs clear, normal breath sounds, speaking full sentences Cardiovascular #1: regular rate, rhythm, no edema Gastrointestinal: normal bowel sounds, non tender, soft, non-distended, no guarding, no rebound Rectal: deferred Genitourinary: no CVA tenderness Musculoskeletal: back normal Neurologic: other - encephalopathy, lethargic Psychiatric: other - encephalopathy, nonverbal Skin: normal inspection Lymphatic: normal inspection Medical Decision Making Diagnostic Impression: Primary Impression: Acute hyperglycemia Additional Impressions: Acute renal failure (ARF) Qualified Codes: N17.9 - Acute kidney failure, unspecified Psychiatric disturbance Renal transplant recipient ER Course Hospital Course 62-year-old male presenting to ED with generalized weakness, elevated fingerstick. h/o psych. Differential diagnoses include: ETOH/drug ingestion, sepsis, DKA Clinical course Patient placed on stretcher. On night monitor. After initial history and physical I ordered labs, IV fluids, urine and chest Xray Labs-glucose greater than 300, no evidence of DKA. BUN/creatinine elevated. Patient was agitated, combative. Patient required Ativan for sedation Patient is DO NOT RESUSCITATE, selective treatment Insulin given, IV fluids given Case discussed with Dr. Raymundo and he agreed to accept the patient to his service for further care and support i. I feel this is a highly complex case requiring extensive working including EKG/Rhythm strip, Xray/CT/US, Blood/urine lab work, repeat exams while in ED, and administration of strong opiates/narcotics for pain control, admission to hospital or close patient follow up. diagnosis - hyperglycemia, ARF, pyschiatric disturbance, renal transplant recipient admitted to floor in serious condition Labs Test 10/29/17 21:00 10/29/17 22:12 10/30/17 07:00 10/31/17 10:23 White Blood Count 6.5 K/UL (4.8-10.8) 7.7 K/UL (4.8-10.8) 6.7 K/UL (4.8-10.8) Red Blood Count 4.25 M/UL (4.70-6.10) 4.06 M/UL (4.70-6.10) 3.83 M/UL (4.70-6.10) Hemoglobin 13.0 G/DL (14.2-18.0) 13.1 G/DL (14.2-18.0) 12.0 G/DL (14.2-18.0) Hematocrit 41.0 % (42.0-52.0) 39.5 % (42.0-52.0) 36.4 % (42.0-52.0) Mean Corpuscular Volume 97 FL (80-99) 97 FL (80-99) 95 FL (80-99) Mean Corpuscular Hemoglobin 30.5 PG (27.0-31.0) 32.3 PG (27.0-31.0) 31.3 PG (27.0-31.0) Mean Corpuscular Hemoglobin Concent 31.6 G/DL (32.0-36.0) 33.2 G/DL (32.0-36.0) 33.0 G/DL (32.0-36.0) Red Cell Distribution Width 17.2 % (11.6-14.8) 17.0 % (11.6-14.8) 16.6 % (11.6-14.8) Platelet Count 262 K/UL (150-450) 297 K/UL (150-450) 266 K/UL (150-450) Mean Platelet Volume 6.5 FL (6.5-10.1) 6.9 FL (6.5-10.1) 7.3 FL (6.5-10.1) Neutrophils (%) (Auto) 76.5 % (45.0-75.0) 68.2 % (45.0-75.0) 64.0 % (45.0-75.0) Lymphocytes (%) (Auto) 14.8 % (20.0-45.0) 20.8 % (20.0-45.0) 23.3 % (20.0-45.0) Monocytes (%) (Auto) 6.7 % (1.0-10.0) 7.7 % (1.0-10.0) 8.2 % (1.0-10.0) Eosinophils (%) (Auto) 1.4 % (0.0-3.0) 2.8 % (0.0-3.0) 4.0 % (0.0-3.0) Basophils (%) (Auto) 0.6 % (0.0-2.0) 0.5 % (0.0-2.0) 0.5 % (0.0-2.0) Urine Color Pale yellow Urine Appearance Clear Urine pH 7 (4.5-8.0) Urine Specific [place] 1.005 (1.005-1.035) Urine Protein 3+ (NEGATIVE) Urine Glucose (UA) 4+ (NEGATIVE) Urine Ketones Negative (NEGATIVE) Urine Occult Blood 3+ (NEGATIVE) Urine Nitrite Negative (NEGATIVE) Urine Bilirubin Negative (NEGATIVE) Urine Urobilinogen Normal MG/DL (0.0-1.0) Urine Leukocyte Esterase 3+ (NEGATIVE) Urine RBC 2-4 /HPF (0 - 0) Urine WBC 5-10 /HPF (0 - 0) Urine Squamous Epithelial Cells None /LPF (NONE/OCC) Urine Bacteria Few /HPF (NONE) Sodium Level 148 MMOL/L (136-145) 144 MMOL/L (136-145) 141 MMOL/L (136-145) Potassium Level 3.5 MMOL/L (3.5-5.1) 4.2 MMOL/L (3.5-5.1) 4.0 MMOL/L (3.5-5.1) Chloride Level 126 MMOL/L (98-107) 117 MMOL/L (98-107) 113 MMOL/L (98-107) Carbon Dioxide Level 8 MMOL/L (21-32) 11 MMOL/L (21-32) 13 MMOL/L (21-32) Anion Gap 14 mmol/L (5-15) 16 mmol/L (5-15) 15 mmol/L (5-15) Blood Urea Nitrogen 76 mg/dL (7-18) 95 mg/dL (7-18) 79 mg/dL (7-18) Creatinine 4.6 MG/DL (0.55-1.30) 6.4 MG/DL (0.55-1.30) 5.5 MG/DL (0.55-1.30) Estimat Glomerular Filtration Rate 13.0 mL/min (>60) 8.9 mL/min (>60) 10.6 mL/min (>60) Glucose Level 401 MG/DL (74-106) 395 MG/DL (74-106) 285 MG/DL (74-106) Lactic Acid Level 2.60 mmol/L (0.66-2.22) 1.70 mmol/L (0.66-2.22) Calcium Level 5.9 MG/DL (8.5-10.1) 8.8 MG/DL (8.5-10.1) 8.3 MG/DL (8.5-10.1) Total Bilirubin 0.2 MG/DL (0.2-1.0) 0.4 MG/DL (0.2-1.0) 0.4 MG/DL (0.2-1.0) Aspartate Amino Transf (AST/SGOT) 15 U/L (15-37) 11 U/L (15-37) 17 U/L (15-37) Alanine Aminotransferase (ALT/SGPT) 10 U/L (12-78) 16 U/L (12-78) 20 U/L (12-78) Alkaline Phosphatase 66 U/L (46-116) 105 U/L (46-116) 81 U/L (46-116) Total Creatine Kinase 40 U/L (26-308) 69 U/L (26-308) Creatine Kinase MB 0.7 NG/ML (0.0-3.6) Creatine Kinase MB Relative Index 1.7 Troponin I 0.021 ng/mL (0.000-0.056) 0.012 ng/mL (0.000-0.056) Pro-B-Type Natriuretic Peptide 854 pg/mL (0-125) 1354 pg/mL (0-125) Total Protein 4.9 G/DL (6.4-8.2) 7.5 G/DL (6.4-8.2) 6.3 G/DL (6.4-8.2) Albumin 2.0 G/DL (3.4-5.0) 3.3 G/DL (3.4-5.0) 2.7 G/DL (3.4-5.0) Globulin 2.9 g/dL 4.2 g/dL 3.6 g/dL Albumin/Globulin Ratio 0.7 (1.0-2.7) 0.8 (1.0-2.7) 0.8 (1.0-2.7) Acetone Level Negative (NEGATIVE) C-Reactive Protein, Quantitative 0.7 mg/dL (0.00-0.90) Hemoglobin A1c 7.1 % (4.3-6.0) Uric Acid 7.9 MG/DL (2.6-7.2) Phosphorus Level 3.4 MG/DL (2.5-4.9) Magnesium Level 3.1 MG/DL (1.8-2.4) Gamma Glutamyl Transpeptidase 12 U/L (5-85) Triglycerides Level 253 MG/DL (30-150) Cholesterol Level 99 MG/DL (< 200) LDL Cholesterol 44 mg/dL (<100) HDL Cholesterol 35 MG/DL (40-60) Cholesterol/HDL Ratio 2.8 (3.3-4.4) Thyroid Stimulating Hormone (TSH) 2.814 uiU/mL (0.358-3.740) EKG Diagnostic Results Rate: normal Rhythm: NSR ST Segments: no acute changes ASA given to the pt in ED: No Rhythm Strip Diag. Results EP Interpretation: yes Rhythm: NSR, no PVC's, no ectopy Last Vital Signs Date Time Temp Pulse Resp B/P (MAP) Pulse Ox O2 Delivery O2 Flow Rate FiO2 10/29/17 20:34 66 19 128/59 100 Room Air Status: improved Disposition: ADMITTED INPATIENT Condition: Serious Referrals: Christopher Rosado MD (PCP) Nestor Gray MD Oct 29, 2017 20:48
[2017-10-29 21:26] LABS: BASOPHILS % (AUTO) 0.6 % (0.0-2.0); EOSINOPHILS % (AUTO) 1.4 % (0.0-3.0); LYMPHOCYTES % (AUTO) 14.8 % (20.0-45.0); MEAN CORPUSCULAR VOLUME 97 FL (80-99); MONOCYTES % (AUTO) 6.7 % (1.0-10.0); NEUTROPHILS % (AUTO) 76.5 % (45.0-75.0); PLATELET COUNT 262 K/UL (150-450); RED BLOOD COUNT 4.25 M/UL (4.70-6.10); RED CELL DISTRIBUTION WIDTH 17.2 % (11.6-14.8); WHITE BLOOD COUNT 6.5 K/UL (4.8-10.8)
[2017-10-29 21:28] LABS: APPEARANCE,URINE CLEAR; BILIRUBIN, URINE NEGATIVE (NEGATIVE); COLOR,URINE PALE YELLOW; GLUCOSE, URINE (UA) 4+ (NEGATIVE); KETONES,URINE NEGATIVE (NEGATIVE); LEUKOCYTE ESTERASE ,URINE 3+ (NEGATIVE); NITRITE,URINE NEGATIVE (NEGATIVE); PH,URINE 7 (4.5-8.0); PROTEIN,URINE 3+ (NEGATIVE); UROBILINOGEN,URINE NORMAL MG/DL (0.0-1.0)
[2017-10-29 21:35] VITALS: BP 117/56
[2017-10-29] MEDS ORDERED: Albuterol/Ipratropium 3ml neb HHN PRN (22:00)
[2017-10-29] MEDS ORDERED: Nitroglycerin Subl 0.4mg tab SL PRN (22:00)
[2017-10-29] MEDS ORDERED: Miralax 17gm pkt ORAL PRN (22:00)
[2017-10-29 22:01] LABS: ALANINE AMINOTRANSFERASE 10 U/L (12-78); ALBUMIN/GLOBULIN RATIO 0.7 (1.0-2.7); ALKALINE PHOSPHATASE 66 U/L (46-116); ANION GAP 14 mmol/L (5-15); ASPARTATE AMINO TRANSFERASE 15 U/L (15-37); BILIRUBIN,TOTAL 0.2 MG/DL (0.2-1.0); BLOOD UREA NITROGEN 76 mg/dL (7-18); CHLORIDE 126 MMOL/L (98-107); CKMB 0.7 NG/ML (0.0-3.6); CREATINE KINASE 40 U/L (26-308); CREATININE 4.6 MG/DL (0.55-1.30); POTASSIUM 3.5 MMOL/L (3.5-5.1); SODIUM 148 MMOL/L (136-145)
[2017-10-29 22:04] LABS: CALCIUM 5.9 MG/DL (8.5-10.1); CARBON DIOXIDE 8 MMOL/L (21-32)
[2017-10-29] MEDS ORDERED: Morphine Sulfate 4mg/ml Inj IVP PRN (23:00)
[2017-10-29 23:26] VITALS: BP 104/52
[2017-10-30] MEDS ORDERED: Vancomycin 1 GM in D5W 275 ML IVPB SCH (01:00)
[2017-10-30 04:00] VITALS: BP_SYST 104; BP_SYST 120; BP_DIAS 43; BP_DIAS 64
[2017-10-30] MEDS: NovoLOG Insulin Flexpen SUBQ SCH ×6 (05:56→21:15)
[2017-10-30 08:00] VITALS: BP 122/60
[2017-10-30 08:31] LABS: BASOPHILS % (AUTO) 0.5 % (0.0-2.0); EOSINOPHILS % (AUTO) 2.8 % (0.0-3.0); HEMATOCRIT 39.5 % (42.0-52.0); HEMOGLOBIN 13.1 G/DL (14.2-18.0); LYMPHOCYTES % (AUTO) 20.8 % (20.0-45.0); MEAN CORPUSCULAR VOLUME 97 FL (80-99); MONOCYTES % (AUTO) 7.7 % (1.0-10.0); NEUTROPHILS % (AUTO) 68.2 % (45.0-75.0); PLATELET COUNT 297 K/UL (150-450); RED BLOOD COUNT 4.06 M/UL (4.70-6.10); WHITE BLOOD COUNT 7.7 K/UL (4.8-10.8)
[2017-10-30] MEDS ORDERED: Levemir Flexpen SUBQ SCH (09:00)
[2017-10-30 09:03] LABS: ALANINE AMINOTRANSFERASE 16 U/L (12-78); ALBUMIN 3.3 G/DL (3.4-5.0); ALBUMIN/GLOBULIN RATIO 0.8 (1.0-2.7); ALKALINE PHOSPHATASE 105 U/L (46-116); ANION GAP 16 mmol/L (5-15); ASPARTATE AMINO TRANSFERASE 11 U/L (15-37); BILIRUBIN,TOTAL 0.4 MG/DL (0.2-1.0); BLOOD UREA NITROGEN 95 mg/dL (7-18); CALCIUM 8.8 MG/DL (8.5-10.1); CARBON DIOXIDE 11 MMOL/L (21-32); CHLORIDE 117 MMOL/L (98-107); CREATININE 6.4 MG/DL (0.55-1.30); POTASSIUM 4.2 MMOL/L (3.5-5.1); SODIUM 144 MMOL/L (136-145)
[2017-10-30] MEDS: Renvela 800mg Pkt ORAL SCH ×3 (09:12→18:07)
[2017-10-30] MEDS: Metoprolol Succinate XL 50mg tab ORAL SCH ×2 (09:12→21:13)
[2017-10-30] MEDS: DULoxetine 30mg cap ORAL SCH (09:12)
[2017-10-30] MEDS: Heparin 5000 units/ml inj SUBQ SCH ×2 (09:14→21:14)
--- NOTE | 2017-10-30 10:14 | Diagnostic Imaging Report ---
Indication: Shortness of breath Technique: XRAY Chest 1v Comparison: 10/10/2017 Findings: Examination is limited by flexion of the chin. Cardiac mediastinal silhouette is grossly stable. There is no obvious consolidation or pleural effusion. Left-sided sixth rib chronic fracture deformity is noted. Impression: Limited examination but no obvious acute cardiopulmonary disease. Follow-up recommended as indicated.
--- NOTE | 2017-10-30 10:30 | Consultation ---
History of Present Illness General Date patient seen: Oct 30, 2017 Chief Complaint: Abnormal Labs Reason for Consultation: inpatient management Present Illness HPI 62 year old male with hx of chronic renal insufficiency, failed renal transplant , recurrent hospitalization, DNR, presented to [facility] [place] with CC of uncontrolled blood glucose. Pt is a poor historian. He is curling up int he bed and stating that he is fine. The history is taken from the chart. Allergies: Coded Allergies: CEFEPIME (Verified Allergy, Intermediate, Rash, 01/23/13) Medication History Scheduled Amlodipine Besylate (Norvasc), 5 MG ORAL DAILY, (Reported) Atorvastatin Calcium* (Lipitor*), 10 MG ORAL BEDTIME Azathioprine* (Imuran*), 50 MG PO DAILY, (Reported) Doxycycline Hyclate (Doxycycline Hyclate), 100 MG PO BID Doxycycline Hyclate* (Vibramycin*), 100 MG ORAL EVERY 12 HOURS, (Reported) Duloxetine Hcl* (Cymbalta*), 30 MG ORAL DAILY, (Reported) Epoetin Jose (Epogen), 10,000 UNIT SUBQ THREE TIMES A WEEK, (Reported) Insulin Detemir (Levemir Flexpen), 15 UNITS SUBQ BID Lansoprazole* (Prevacid*), 30 MG ORAL DAILY, (Reported) Levofloxacin* (Levaquin*), 500 MG ORAL QOD, (Reported) Metoprolol Succinate* (Metoprolol Succinate*), 50 MG ORAL Q12HR, (Reported) Polyethylene Glycol* (Miralax*), 17 GM ORAL BEDTIME Sevelamer Carbonate* (Renvela*), 800 MG ORAL THREE TIMES A DAY, (Reported) Sevelamer Carbonate* (Renvela*), 800 MG ORAL THREE TIMES A DAY, (Reported) Warfarin Sod* (Coumadin*), 5 MG ORAL DAILY, (Reported) Scheduled PRN Acetaminophen (Acetaminophen), 650 MG ORAL Q6H PRN for Prn Headache/Temp > 101, (Reported) Nitroglycerin (Nitroglycerin), 0.4 MG SL for Prn Chest Pain, (Reported) Temazepam* (Restoril*), 15 MG ORAL BEDTIME PRN for Insomnia, (Reported) Miscellaneous Medications [Novolog ss], (Reported) Patient History Healthcare decision maker Paul Cota Resuscitation status Advanced Directive on File Yes Past Medical/Surgical History Past Medical/Surgical History: (1) Kidney transplant status (2) CAD (coronary artery disease) (3) HTN (hypertension) (4) Pulmonary HTN (5) CKD (chronic kidney disease), stage III (6) DM (diabetes mellitus) (7) Renal mass, right (8) Nephropathy, diabetic Review of Systems Constitutional: Reports: malaise, weakness All Other Systems: negative except mentioned in HPI Physical Exam General Appearance: cachetic Lines, tubes and drains: peripheral HEENT: normocephalic, atraumatic Neck: non-tender, normal alignment Respiratory/Chest: chest wall non-tender, lungs clear, normal breath sounds Breasts: no masses Cardiovascular/Chest: normal peripheral pulses, normal rate Abdomen: normal bowel sounds, non tender Genitourinary/Rectal: normal genital exam, normal rectal exam Extremities: normal range of motion Skin Exam: warm/dry 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 Last 24 Hour Vital Signs Date Time Temp Pulse Resp B/P (MAP) Pulse Ox O2 Delivery O2 Flow Rate FiO2 10/30/17 09:13 72 122/60 10/30/17 09:12 72 122/60 10/30/17 08:00 97.3 72 20 122/60 98 97.3 10/30/17 04:00 97.2 75 19 120/43 100 Room Air 97.2 10/29/17 23:40 97.5 85 21 104/52 100 Room Air 10/29/17 23:26 97.8 85 21 104/52 100 Room Air 97.8 10/29/17 21:35 68 18 117/56 95 Room Air 10/29/17 20:34 66 19 128/59 100 Room Air 10/29/17 19:58 68 18 124/52 99 Room Air Intake and Output 10/29/17 10/30/17 19:00 07:00 Intake Total 275.0 ml Output Total 600 ml Balance -325.0 ml IV Total 275.0 ml Output Urine Total 600 ml Laboratory Tests Test 10/29/17 21:00 10/29/17 22:12 10/30/17 07:00 White Blood Count 6.5 K/UL (4.8-10.8) 7.7 K/UL (4.8-10.8) Red Blood Count 4.25 M/UL (4.70-6.10) L 4.06 M/UL (4.70-6.10) L Hemoglobin 13.0 G/DL (14.2-18.0) L 13.1 G/DL (14.2-18.0) L Hematocrit 41.0 % (42.0-52.0) L 39.5 % (42.0-52.0) L Mean Corpuscular Volume 97 FL (80-99) 97 FL (80-99) Mean Corpuscular Hemoglobin 30.5 PG (27.0-31.0) 32.3 PG (27.0-31.0) H Mean Corpuscular Hemoglobin Concent 31.6 G/DL (32.0-36.0) L 33.2 G/DL (32.0-36.0) Red Cell Distribution Width 17.2 % (11.6-14.8) H 17.0 % (11.6-14.8) H Platelet Count 262 K/UL (150-450) 297 K/UL (150-450) Mean Platelet Volume 6.5 FL (6.5-10.1) 6.9 FL (6.5-10.1) Neutrophils (%) (Auto) 76.5 % (45.0-75.0) H 68.2 % (45.0-75.0) Lymphocytes (%) (Auto) 14.8 % (20.0-45.0) L 20.8 % (20.0-45.0) Monocytes (%) (Auto) 6.7 % (1.0-10.0) 7.7 % (1.0-10.0) Eosinophils (%) (Auto) 1.4 % (0.0-3.0) 2.8 % (0.0-3.0) Basophils (%) (Auto) 0.6 % (0.0-2.0) 0.5 % (0.0-2.0) Urine Color Pale yellow Urine Appearance Clear Urine pH 7 (4.5-8.0) Urine Specific [place] 1.005 (1.005-1.035) Urine Protein 3+ (NEGATIVE) H Urine Glucose (UA) 4+ (NEGATIVE) H Urine Ketones Negative (NEGATIVE) Urine Occult Blood 3+ (NEGATIVE) H Urine Nitrite Negative (NEGATIVE) Urine Bilirubin Negative (NEGATIVE) Urine Urobilinogen Normal MG/DL (0.0-1.0) Urine Leukocyte Esterase 3+ (NEGATIVE) H Urine RBC 2-4 /HPF (0 - 0) H Urine WBC 5-10 /HPF (0 - 0) H Urine Squamous Epithelial Cells None /LPF (NONE/OCC) Urine Bacteria Few /HPF (NONE) Sodium Level 148 MMOL/L (136-145) H 144 MMOL/L (136-145) Potassium Level 3.5 MMOL/L (3.5-5.1) 4.2 MMOL/L (3.5-5.1) Chloride Level 126 MMOL/L (98-107) H 117 MMOL/L (98-107) H Carbon Dioxide Level 8 MMOL/L (21-32) *L 11 MMOL/L (21-32) L Anion Gap 14 mmol/L (5-15) 16 mmol/L (5-15) H Blood Urea Nitrogen 76 mg/dL (7-18) H 95 mg/dL (7-18) H Creatinine 4.6 MG/DL (0.55-1.30) H 6.4 MG/DL (0.55-1.30) H Estimat Glomerular Filtration Rate 13.0 mL/min (>60) 8.9 mL/min (>60) Glucose Level 401 MG/DL (74-106) H 395 MG/DL (74-106) H Lactic Acid Level 2.60 mmol/L (0.66-2.22) H 1.70 mmol/L (0.66-2.22) Calcium Level 5.9 MG/DL (8.5-10.1) *L 8.8 MG/DL (8.5-10.1) # Total Bilirubin 0.2 MG/DL (0.2-1.0) 0.4 MG/DL (0.2-1.0) Aspartate Amino Transf (AST/SGOT) 15 U/L (15-37) 11 U/L (15-37) L Alanine Aminotransferase (ALT/SGPT) 10 U/L (12-78) L 16 U/L (12-78) Alkaline Phosphatase 66 U/L (46-116) 105 U/L (46-116) Total Creatine Kinase 40 U/L (26-308) Creatine Kinase MB 0.7 NG/ML (0.0-3.6) Creatine Kinase MB Relative Index 1.7 Troponin I 0.021 ng/mL (0.000-0.056) Pro-B-Type Natriuretic Peptide 854 pg/mL (0-125) H Total Protein 4.9 G/DL (6.4-8.2) L 7.5 G/DL (6.4-8.2) # Albumin 2.0 G/DL (3.4-5.0) L 3.3 G/DL (3.4-5.0) L Globulin 2.9 g/dL 4.2 g/dL Albumin/Globulin Ratio 0.7 (1.0-2.7) L 0.8 (1.0-2.7) L Acetone Level Negative (NEGATIVE) Height (Feet): 5 Height (Inches): 10.00 Weight (Pounds): 170 Medications Current Medications Medications (Trade) Dose Ordered Sig/Dunia Route PRN Reason Start Time Stop Time Status Last Admin Dose Admin Acetaminophen (Tylenol) 650 mg Q4H PRN ORAL fever 10/29/17 22:00 11/28/17 21:59 Albuterol/ Ipratropium (Albuterol/ Ipratropium) 3 ml EVERY 4 HOURS PRN HHN Shortness of Breath 10/29/17 22:00 11/03/17 21:59 Amlodipine Besylate (Norvasc) 5 mg DAILY ORAL 10/30/17 09:00 11/29/17 08:59 10/30/17 09:13 Atorvastatin Calcium (Lipitor) 10 mg BEDTIME ORAL 10/30/17 21:00 11/29/17 20:59 Dextrose (Dextrose 50%) STAT PRN IV Hypoglycemia 10/29/17 22:00 11/28/17 21:59 Duloxetine HCl (Cymbalta) 30 mg DAILY ORAL 10/30/17 09:00 11/29/17 08:59 10/30/17 09:12 Heparin Sodium (Porcine) (Heparin 5000 units/ml) 5,000 units EVERY 12 HOURS SUBQ 10/30/17 09:00 11/29/17 08:59 10/30/17 09:14 Insulin Aspart (NovoLOG) BEFORE MEALS AND HS SUBQ 10/30/17 06:30 11/29/17 06:29 10/30/17 05:56 Insulin Detemir (Levemir) 15 units BID SUBQ 10/30/17 09:00 11/29/17 08:59 10/30/17 09:14 Metoprolol Succinate (Toprol XL) 50 mg Q12HR ORAL 10/30/17 09:00 11/29/17 08:59 10/30/17 09:12 Morphine Sulfate (Morphine Sulfate) 2 mg Q4H PRN IVP moderate pain scale (4 to 6) 10/29/17 23:00 11/05/17 22:59 Nitroglycerin (Ntg) 0.4 mg Q5M PRN SL Prn Chest Pain 10/29/17 22:00 11/28/17 21:59 Ondansetron HCl (Zofran) 4 mg Q6H PRN IVP Nausea & Vomiting 10/29/17 22:00 11/28/17 21:59 Polyethylene Glycol (Miralax) 17 gm DAILYPRN PRN ORAL Constipation 10/29/17 22:00 11/28/17 21:59 Sevelamer Carbonate (Renvela) 800 mg THREE TIMES A DAY ORAL 10/30/17 09:00 11/29/17 08:59 10/30/17 09:12 Temazepam (Restoril) 15 mg HSPRN PRN ORAL Insomnia 10/29/17 22:00 11/05/17 21:59 Vancomycin HCl 1 gm/Dextrose 275 ml @ 183.3 mls/ hr Q48H IVPB 10/30/17 01:00 11/04/17 00:59 10/30/17 01:26 Assessment/Plan Problem List: (1) Uncontrolled diabetes mellitus ICD Codes: E11.65 - Type 2 diabetes mellitus with hyperglycemia SNOMED: 284402551 (2) Pulmonary HTN ICD Codes: I27.0 - Pulmonary HTN SNOMED: 85132726 (3) ESRD (end stage renal disease) ICD Codes: N18.6 - End stage renal disease SNOMED: 43949084 (4) Renal transplant recipient ICD Codes: Z94.0 - Renal transplant recipient SNOMED: 565991969 (5) HTN (hypertension) ICD Codes: I10 - HTN (hypertension) SNOMED: 81616026 (6) CAD (coronary artery disease) ICD Codes: I25.10 - CAD (coronary artery disease) SNOMED: 839104249 (7) Psychiatric disturbance ICD Codes: F99 - Psychiatric disturbance SNOMED: 87213950 (8) Coronary heart disease ICD Codes: I25.9 - Coronary heart disease SNOMED: 65538102 Assessment/Plan IV fluids sliding scale renal/diabetic diet Endo evaluation titrate fio2 to sat of 92% continue antihypertensive meds. Esdras Delgado MD Oct 30, 2017 10:29
[2017-10-30] MEDS ORDERED: Vancomycin 750mg/NS 250ml IVPB ONE (11:30)
[2017-10-30 12:00] VITALS: BP 151/73
--- NOTE | 2017-10-30 12:06 | General Progress Note ---
Assessment/Plan Problem List: (1) Diabetes mellitus out of control ICD Codes: E11.65 - Type 2 diabetes mellitus with hyperglycemia SNOMED: 77304128, 968657009 (2) Acidosis, metabolic ICD Codes: E87.2 - Acidosis, metabolic SNOMED: 82539567 (3) Hyperparathyroidism ICD Codes: E21.3 - Hyperparathyroidism, unspecified SNOMED: 52544119 (4) ESRD (end stage renal disease) ICD Codes: N18.6 - End stage renal disease SNOMED: 23136564 Assessment/Plan reduce Levemir to 12 units bid add Novolog 6 units ac tid continue NISS Subjective Allergies: Coded Allergies: CEFEPIME (Verified Allergy, Intermediate, Rash, 01/23/13) All Systems: reviewed and negative except above Subjective events noted BG improved before lunch Objective Last 24 Hour Vital Signs Date Time Temp Pulse Resp B/P (MAP) Pulse Ox O2 Delivery O2 Flow Rate FiO2 10/30/17 09:13 72 122/60 10/30/17 09:12 72 122/60 10/30/17 08:00 97.3 72 20 122/60 98 97.3 10/30/17 04:00 97.2 75 19 120/43 100 Room Air 97.2 10/29/17 23:40 97.5 85 21 104/52 100 Room Air 10/29/17 23:26 97.8 85 21 104/52 100 Room Air 97.8 10/29/17 21:35 68 18 117/56 95 Room Air 10/29/17 20:34 66 19 128/59 100 Room Air 10/29/17 19:58 68 18 124/52 99 Room Air Intake and Output 10/29/17 10/30/17 19:00 07:00 Intake Total 275.0 ml Output Total 600 ml Balance -325.0 ml IV Total 275.0 ml Output Urine Total 600 ml Laboratory Tests 10/29/17 21:00: White Blood Count 6.5, Red Blood Count 4.25L, Hemoglobin 13.0L, Hematocrit 41.0L , Mean Corpuscular Volume 97, Mean Corpuscular Hemoglobin 30.5, Mean Corpuscular Hemoglobin Concent 31.6L, Red Cell Distribution Width 17.2H, Platelet Count 262, Mean Platelet Volume 6.5, Neutrophils (%) (Auto) 76.5H, Lymphocytes (%) (Auto) 14.8L, Monocytes (%) (Auto) 6.7, Eosinophils (%) (Auto) 1.4, Basophils (%) (Auto) 0.6, Urine Color Pale yellow, Urine Appearance Clear, Urine pH 7, Urine Specific [place] 1.005, Urine Protein 3+H, Urine Glucose (UA) 4+H, Urine Ketones Negative, Urine Occult Blood 3+H, Urine Nitrite Negative, Urine Bilirubin Negative, Urine Urobilinogen Normal, Urine Leukocyte Esterase 3+ H, Urine RBC 2-4H, Urine WBC 5-10H, Urine Squamous Epithelial Cells None, Urine Bacteria Few, Sodium Level 148H, Potassium Level 3.5, Chloride Level 126H, Carbon Dioxide Level 8*L, Anion Gap 14, Blood Urea Nitrogen 76H, Creatinine 4.6H , Estimat Glomerular Filtration Rate 13.0, Glucose Level 401H, Lactic Acid Level 2.60H, Calcium Level 5.9*L, Total Bilirubin 0.2, Aspartate Amino Transf ( AST/SGOT) 15, Alanine Aminotransferase (ALT/SGPT) 10L, Alkaline Phosphatase 66, Total Creatine Kinase 40, Creatine Kinase MB 0.7, Creatine Kinase MB Relative Index 1.7, Troponin I 0.021, Pro-B-Type Natriuretic Peptide 854H, Total Protein 4.9L, Albumin 2.0L, Globulin 2.9, Albumin/Globulin Ratio 0.7L, Acetone Level Negative 10/29/17 22:12: Lactic Acid Level 1.70 10/30/17 07:00: White Blood Count 7.7, Red Blood Count 4.06L, Hemoglobin 13.1L, Hematocrit 39.5L , Mean Corpuscular Volume 97, Mean Corpuscular Hemoglobin 32.3H, Mean Corpuscular Hemoglobin Concent 33.2, Red Cell Distribution Width 17.0H, Platelet Count 297, Mean Platelet Volume 6.9, Neutrophils (%) (Auto) 68.2, Lymphocytes (%) (Auto) 20.8, Monocytes (%) (Auto) 7.7, Eosinophils (%) (Auto) 2.8, Basophils (%) (Auto) 0.5, Sodium Level 144, Potassium Level 4.2, Chloride Level 117H, Carbon Dioxide Level 11L, Anion Gap 16H, Blood Urea Nitrogen 95H, Creatinine 6.4H, Estimat Glomerular Filtration Rate 8.9, Glucose Level 395H, Calcium Level 8.8#, Total Bilirubin 0.4, Aspartate Amino Transf (AST/SGOT) 11L, Alanine Aminotransferase (ALT/SGPT) 16, Alkaline Phosphatase 105, Total Protein 7.5#, Albumin 3.3L, Globulin 4.2, Albumin/Globulin Ratio 0.8L Height (Feet): 5 Height (Inches): 10.00 Weight (Pounds): 170 General Appearance: no apparent distress Neck: normal alignment Cardiovascular: normal rate Respiratory/Chest: lungs clear Abdomen: normal bowel sounds Pelvis: normal external exam Edema: 1+ Arm (L), 1+ Arm (R), 1+ Leg (L), 1+ Leg (R), 1+ Pedal (L), 1+ Pedal ( R), 1+ Generalized Objective Current Medications Medications (Trade) Dose Ordered Sig/Dunia Route PRN Reason Start Time Stop Time Status Last Admin Dose Admin Acetaminophen (Tylenol) 650 mg Q4H PRN ORAL fever 10/29/17 22:00 11/28/17 21:59 Albuterol/ Ipratropium (Albuterol/ Ipratropium) 3 ml EVERY 4 HOURS PRN HHN Shortness of Breath 10/29/17 22:00 11/03/17 21:59 Amlodipine Besylate (Norvasc) 5 mg DAILY ORAL 10/30/17 09:00 11/29/17 08:59 10/30/17 09:13 Atorvastatin Calcium (Lipitor) 10 mg BEDTIME ORAL 10/30/17 21:00 11/29/17 20:59 Dextrose (Dextrose 50%) STAT PRN IV Hypoglycemia 10/29/17 22:00 11/28/17 21:59 Duloxetine HCl (Cymbalta) 30 mg DAILY ORAL 10/30/17 09:00 11/29/17 08:59 10/30/17 09:12 Heparin Sodium (Porcine) (Heparin 5000 units/ml) 5,000 units EVERY 12 HOURS SUBQ 10/30/17 09:00 11/29/17 08:59 10/30/17 09:14 Insulin Aspart (NovoLOG) BEFORE MEALS AND HS SUBQ 10/30/17 06:30 11/29/17 06:29 10/30/17 05:56 Insulin Detemir (Levemir) 15 units BID SUBQ 10/30/17 09:00 11/29/17 08:59 10/30/17 09:14 Metoprolol Succinate (Toprol XL) 50 mg Q12HR ORAL 10/30/17 09:00 11/29/17 08:59 10/30/17 09:12 Morphine Sulfate (Morphine Sulfate) 2 mg Q4H PRN IVP moderate pain scale (4 to 6) 10/29/17 23:00 11/05/17 22:59 Nitroglycerin (Ntg) 0.4 mg Q5M PRN SL Prn Chest Pain 10/29/17 22:00 11/28/17 21:59 Ondansetron HCl (Zofran) 4 mg Q6H PRN IVP Nausea & Vomiting 10/29/17 22:00 11/28/17 21:59 Polyethylene Glycol (Miralax) 17 gm DAILYPRN PRN ORAL Constipation 10/29/17 22:00 11/28/17 21:59 Sevelamer Carbonate (Renvela) 800 mg THREE TIMES A DAY ORAL 10/30/17 09:00 11/29/17 08:59 10/30/17 09:12 Temazepam (Restoril) 15 mg HSPRN PRN ORAL Insomnia 10/29/17 22:00 11/05/17 21:59 Vancomycin HCl (Vanco rx to dose) 1 ea DAILY PRN MISC . 10/30/17 10:45 11/29/17 10:44 Vancomycin/Sodium Chloride 250 ml @ 166.667 mls/hr ONCE ONCE IVPB 10/30/17 11:30 10/30/17 12:59 10/30/17 11:58 Item Value Date Time Bedside Blood Glucose 424 mg/dl H 10/30/17 0914 Bedside Blood Glucose 424 mg/dl H 10/30/17 0630 Bedside Blood Glucose 472 mg/dl H 10/29/172015 MALKA SHERIFF Oct 30, 2017 12:06
--- NOTE | 2017-10-30 13:37 | History & Physical ---
History and Physical History & Physicial Dictated for Int Med-Dr Rosado no. [id number]. DEE MAHER Oct 30, 2017 13:37
--- NOTE | 2017-10-30 15:22 | Consultation ---
Consult Note Consult Note ID DIC # [id number] as per RN ( who called SNF ) : no recent blood Cx done at SNF Rich Wick MD Oct 30, 2017 15:22
--- NOTE | 2017-10-30 15:23 | Consultation ---
Consult Note Consult Note 62-year-old male presents ED for evaluation. Patient brought from care home facility for abnormal labs. Reportedly sugars are not well controlled and bacteremia. Patient also complaining of weakness and poor appetite for the last 3 days. Afebrile in triage. Accu-Chek in the 400s. Patient has significant psych history. Patient is DO NOT RESUSCITATE, selective treatment only. Patient is a poor historian otherwise and not providing any additional history at this time. No signs of distress upon arrival. No reported chest pain or shortness of breath. No other aggravating relieving factors. No other associated symptoms Allergies: Coded Allergies: CEFEPIME (Verified Allergy, Intermediate, Rash, 01/23/13) Patient History Past Medical History: DM, HTN, SC, CAD, psych hx, other - encephalopathy Hx Cardiac Problems: Yes - anemia, CAD post stent placement [id number], nstemi MIx3 Hx Hypertension: Yes - left eye blindness, hypercholesterolemia Hx Asthma: Yes Hx COPD: Yes Hx Diabetes: Yes - DMII, hx dka Hx Cancer: Yes - kidney and panreas ca Hx Cerebrovascular Accident: Yes Hx Encephalitis: Yes - 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 ATTEMPT Hx Dizziness: Yes Assessment/Plan (1) CKD (chronic kidney disease), stage III, superimposed acute- Cr ethan since last admit- has metabolic acidosis (2) Dehydration- Partly due to hyperglycemia (3) Hyperglycemia due to type 2 diabetes mellitus (4) BPH (benign prostatic hypertrophy) (5) Nephropathy, diabetic (6) History of simultaneous kidney and pancreas transplant (7) UTI (urinary tract infection) (8) Anemia of CKD (9) HyperParathyroidism Has suprapubic cath slow hydrate re address dialysis avoid nephrotoxics BP and BS control- monitor renal parameters BERT ALONSO Oct 30, 2017 15:23
[2017-10-30] MEDS ORDERED: NS 275ml ONE (15:28)
[2017-10-30] MEDS ORDERED: Tubing IV Secondary IV ONE (15:28)
[2017-10-30] MEDS ORDERED: D5W 275ml ONE (15:28)
[2017-10-30 16:00] VITALS: BP 105/50
[2017-10-30] MEDS ORDERED: Sodium Citrate 30ml ORAL SCH (16:00)
[2017-10-30] MEDS: Docusate 100mg cap ORAL SCH (18:07)
[2017-10-30] MEDS: Sodium Citrate 30ml ORAL SCH (18:07)
[2017-10-30] MEDS: Levemir Flexpen SUBQ SCH (19:00)
--- NOTE | 2017-10-30 19:45 | Consultation ---
DATE OF CONSULTATION: 10/30/2017 INFECTIOUS DISEASE CONSULTATION CONSULTING PHYSICIAN: Rich Wick M.D. REFERRING PHYSICIAN: Esdras Delgado M.D. REASON FOR CONSULTATION: Evaluation of the patient for possible sepsis, confusion, the patient's hyperglycemia. HISTORY OF PRESENT ILLNESS: The patient is a 62-year-old male with multiple medical problems as listed below, who was admitted to this medical center due to uncontrolled diabetes. In the ED note, there is history of bacteremia as the reason for referral, however, I talked to the primary care, Dr. Glasgow, and there is no information regarding that. The patient is afebrile and has normal white blood cells. The patient has been monitored here for controlling the blood sugars and Infectious Disease consultation has been requested for evaluation of the patient for possible and possible infection or sepsis as contributing factor to the patient's hyperglycemia. PAST MEDICAL HISTORY: 1. History of suprapubic catheter placement. 2. History of CKD, status post hemodialysis. 3. 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 4. History of coag-negative Staph bacteremia in July 2007, AMY was negative for endocarditis (due to bacteremia due to the PICC line infection). 5. History of enterococcus bacteremia in May 2017. 6. History of suicidal attempt. 7. History of myocardial infarction. 8. Anemia. 9. History of colon polyp. 10. History of CAD. 11. History of hypertension. 12. Diabetes. MEDICATIONS: IV vancomycin. ALLERGIES: Cefepime. PHYSICAL EXAMINATION: VITAL SIGNS: Temperature 97, blood pressure 151/70, pulse 66, respiratory rate 18. HEENT: No pale conjunctivae. No icterus. NECK: No lymphadenopathy. CHEST: Clear. HEART: S1, S2. ABDOMEN: Soft, nontender. Suprapubic catheter present. EXTREMITIES: No cyanosis. LABORATORY AND DIAGNOSTIC DATA: White blood cells 7, hemoglobin 13, platelets 297,000. UA, 5 to 10 white blood cells. BUN 95, creatinine 6.4. ASSESSMENT: The patient is a 62-year-old male with: 1. History of bacteremia prior to this admission (the patient is a poor historian, there is no information available regarding that). 2. Afebrile. 3. Leukocytosis. 4. Uncontrolled diabetes. 5. No evidence of sepsis, urinary tract infection at this point. PLAN: 1. We will monitor the patient off of antibiotics, hold IV vancomycin (the patient already has borderline renal function). 2. We will try to contact the residential to get further information regarding if any documentation of bacteremia. 3. Monitor CBC. 4. Monitor BMP. 5. We will send blood and urine culture. 6. Monitor chest x-ray. 7. Based on the patient's clinical course and labs, we will do further recommendations. Thank you for this consultation. We will follow the patient during this admission. Rich Wick M.D. DR: Jes JOB#: [id number] CC:
[2017-10-30 20:00] VITALS: BP 112/52
--- NOTE | 2017-10-30 21:00 | History and Physical Report ---
DATE OF ADMISSION: 10/29/2017 CHIEF COMPLAINT: The patient is a 62-year-old white male presents with chief complaint of abnormal labs. HISTORY OF PRESENT ILLNESS: The patient is a resident of [facility]. According to staff at [facility], the patient's blood sugars have been elevated. The patient has also not been eating well for the last 3 days. The patient presented to [place] emergency room. Random blood sugar was found to be greater than 400. The patient is admitted with hyperglycemia and uncontrolled diabetes type 2. PAST MEDICAL HISTORY: Significant for 1. Type 2 diabetes. 2. Chronic renal failure, stage 4. 3. Anemia. 4. Renal osteodystrophy. 5. Secondary hyperparathyroidism. 6. Gastritis. 7. Coronary artery disease, status post stent placement in 2007. 8. Non-ST elevated myocardial infarction x2. 9. Hypertension. 10. Benign prostatic hypertrophy. 11. Left eye blindness. 12. Hypercholesterolemia. 13. Major depression status post suicide attempt in 2012 by insulin overdose. PAST SURGICAL HISTORY: Significant for 1. Suprapubic catheter placement in September 2017. 2. Renal pancreatic transplant in 1987, status post rejection. 3. Bilateral nephrectomy in 2014. 4. Left eye prosthesis. CURRENT MEDICATIONS: 1. Levemir 25 units subcutaneously twice daily. 2. NovoLog insulin sliding scale. 3. Atorvastatin 10 mg p.o. at bedtime. 4. Azathioprine 50 mg p.o. daily. 5. Erythropoietin 10,000 units subcutaneously three times weekly. 6. Nexium 30 mg p.o. daily. 7. Metoprolol 50 mg p.o. twice daily. 8. Renvela 800 mg p.o. three times daily. 9. Amlodipine 5 mg p.o. daily. 10. Cymbalta 30 mg p.o. daily. ALLERGIES: To cefepime. SOCIAL HISTORY: The patient lives at [facility]. The patient denies tobacco or alcohol use. REVIEW OF SYSTEMS: CONSTITUTIONAL: The patient denies weight loss or weight gain. The patient denies fevers or chills. HEENT: The patient denies ear or throat pain. The patient denies headache. CARDIOVASCULAR: The patient denies palpitations or chest pain. CHEST: The patient denies wheeze or shortness of breath. ABDOMEN: The patient denies nausea, vomiting, diarrhea, or constipation. The patient has been anorexic for the last 3 days. NEUROMUSCULAR: The patient denies seizures or generalized weakness. GENITOURINARY: The patient denies dysuria or increased frequency of urination. PHYSICAL EXAMINATION: GENERAL: The patient is a well-developed and well-nourished white male, in no apparent distress. VITAL SIGNS: Temperature 97.8 degrees, respirations 21, pulse 85, and blood pressure 104/52. HEENT: Right eye pupil is equal and responsive to light and accommodation. Extraocular movements are intact. NECK: Supple without lymphadenopathy. CHEST: Lungs are clear to auscultation bilaterally without wheezes or rales. CARDIOVASCULAR: Regular rate. S1 and S2 are normal without murmurs, rubs, or gallops. ABDOMEN: Soft, nontender, and nondistended. Positive bowel sounds. No evidence of hepatosplenomegaly. Currently, no rebound or guarding noted. EXTREMITIES: Negative for clubbing, cyanosis, or edema. RECTAL/GENITAL: Refused. NEUROLOGIC: Cranial nerves II through XII are grossly intact without focal deficits. Motor strength is 5/5 bilaterally. Deep tendon reflexes are 2+ plantar. LABORATORY AND DIAGNOSTIC DATA: A chest x-ray was reported as no acute disease. Laboratory studies, WBC 6.5, hemoglobin 13.0, hematocrit 41.0 and platelets 262,000. Sodium 148, potassium 3.5, chloride 126, CO2 8, BUN 76, creatinine 4.6, and glucose 101. Lactic acid 2.60. BNP elevated at . Troponin 0.021. ASSESSMENT: This is a 62-year-old white male 1. Hyperglycemia. 2. Diabetes type 2, uncontrolled. 3. Renal failure, stage 4. 4. Hypertension. 5. Anemia. 6. Renal osteodystrophy. 7. Secondary hyperparathyroidism. 8. Gastritis. 9. Coronary artery disease. 10. Benign prostatic hypertrophy. 11. Blindness of the left eye. 12. Hypercholesterolemia. 13. Depression. TREATMENT: 1. Hyperglycemia/uncontrolled diabetes type 2. An Endocrinology consultation to be obtained with Dr. Jacques. The patient has been placed on a NovoLog sliding scale. We will follow recommendations of Dr. Jacquse. 2. Renal failure, stage 4. A Nephrology consultation to be obtained with Dr. Chambers. 3. Hypertension. Continue amlodipine and metoprolol as above. 4. Anemia of chronic renal disease. 5. Renal osteodystrophy. 6. Secondary hyperparathyroidism. 7. Gastritis. 8. Coronary artery disease, status post non-ST elevated myocardial infarction. 9. Benign prostatic hypertrophy. 10. Blindness of the left eye. 11. Hypercholesterolemia. 12. Major depression. Jose Glasgow M.D. DR: GEM JOB#: [id number] CC:
[2017-10-31] VITALS: BP 110/55
[2017-10-31] MEDS: Sodium Citrate 30ml ORAL SCH ×5 (00:43→23:51)
[2017-10-31 04:00] VITALS: BP 137/70
[2017-10-31] MEDS: NovoLOG Insulin Flexpen SUBQ SCH ×8 (06:27→22:06)
[2017-10-31 08:00] VITALS: BP 159/81
[2017-10-31] MEDS: DULoxetine 30mg cap ORAL SCH (08:30)
[2017-10-31] MEDS: Docusate 100mg cap ORAL SCH ×2 (08:31→17:21)
[2017-10-31] MEDS: Renvela 800mg Pkt ORAL SCH ×3 (08:31→17:21)
[2017-10-31] MEDS: Metoprolol Succinate XL 50mg tab ORAL SCH ×2 (08:31→22:02)
[2017-10-31] MEDS: Heparin 5000 units/ml inj SUBQ SCH ×2 (08:32→22:04)
[2017-10-31] MEDS: Levemir Flexpen SUBQ SCH ×2 (08:41→17:33)
--- NOTE | 2017-10-31 09:48 | Nephrology Progress Note ---
Assessment/Plan Problem List: (1) Acute on chronic renal failure (2) Anemia in chronic kidney disease (3) Hyperglycemia due to type 2 diabetes mellitus Assessment (1) CKD (chronic kidney disease), stage III, superimposed acute- Cr ethan since last admit- has metabolic acidosis (2) Dehydration- Partly due to hyperglycemia (3) Hyperglycemia due to type 2 diabetes mellitus (4) BPH (benign prostatic hypertrophy) (5) Nephropathy, diabetic (6) History of simultaneous kidney and pancreas transplant (7) UTI (urinary tract infection) (8) Anemia of CKD (9) HyperParathyroidism . Plan today's lab pending Has suprapubic cath slow hydrate re address dialysis avoid nephrotoxics BP and BS control- monitor renal parameters Subjective ROS Limited/Unobtainable: No Constitutional: Reports: malaise Objective Objective Last 24 Hour Vital Signs Date Time Temp Pulse Resp B/P (MAP) Pulse Ox O2 Delivery O2 Flow Rate FiO2 10/31/17 08:31 74 159/81 10/31/17 08:30 74 159/81 10/31/17 04:00 98.1 64 20 137/70 100 98.1 10/31/17 00:00 98.0 65 20 110/55 100 98.0 10/30/17 21:13 64 112/52 10/30/17 20:00 97.3 64 20 112/52 98 97.3 10/30/17 16:00 97.3 59 20 105/50 97 Room Air 97.3 10/30/17 12:00 97.7 66 20 151/73 97 Room Air 97.7 10/30/17 12:00 97.7 66 20 151/73 97 97.7 Intake and Output 10/30/17 10/31/17 19:00 07:00 Intake Total 235 ml 750 ml Output Total 1000 ml Balance 235 ml -250 ml Intake Oral 160 ml IV Total 75 ml 750 ml Output Urine Total 1000 ml # Voids 3 Height (Feet): 5 Height (Inches): 10.00 Weight (Pounds): 170 General Appearance: no apparent distress, lethargic Cardiovascular: tachycardia Respiratory/Chest: decreased breath sounds Abdomen: distended BERT ALONSO Oct 31, 2017 09:48
--- NOTE | 2017-10-31 10:15 | General Progress Note ---
Assessment/Plan Problem List: (1) Diabetes mellitus out of control ICD Codes: E11.65 - Type 2 diabetes mellitus with hyperglycemia SNOMED: 93910589, 622241111 (2) Acidosis, metabolic ICD Codes: E87.2 - Acidosis, metabolic SNOMED: 28849308 (3) Hyperparathyroidism ICD Codes: E21.3 - Hyperparathyroidism, unspecified SNOMED: 87264247 (4) ESRD (end stage renal disease) ICD Codes: N18.6 - End stage renal disease SNOMED: 68186192 Assessment/Plan continue Levemir 12 units bid continue Novolog 6 units ac tid continue NISS Subjective Allergies: Coded Allergies: CEFEPIME (Verified Allergy, Intermediate, Rash, 01/23/13) All Systems: reviewed and negative except above Subjective events noted Objective Last 24 Hour Vital Signs Date Time Temp Pulse Resp B/P (MAP) Pulse Ox O2 Delivery O2 Flow Rate FiO2 10/31/17 08:31 74 159/81 10/31/17 08:30 74 159/81 10/31/17 08:00 98.7 74 20 159/81 99 Room Air 98.7 10/31/17 04:00 98.1 64 20 137/70 100 98.1 10/31/17 00:00 98.0 65 20 110/55 100 98.0 10/30/17 21:13 64 112/52 10/30/17 20:00 97.3 64 20 112/52 98 97.3 10/30/17 16:00 97.3 59 20 105/50 97 Room Air 97.3 10/30/17 12:00 97.7 66 20 151/73 97 Room Air 97.7 10/30/17 12:00 97.7 66 20 151/73 97 97.7 Intake and Output 10/30/17 10/31/17 19:00 07:00 Intake Total 235 ml 750 ml Output Total 1000 ml Balance 235 ml -250 ml Intake Oral 160 ml IV Total 75 ml 750 ml Output Urine Total 1000 ml # Voids 3 Height (Feet): 5 Height (Inches): 10.00 Weight (Pounds): 170 General Appearance: no apparent distress Neck: normal alignment Cardiovascular: regular rhythm Respiratory/Chest: lungs clear Abdomen: normal bowel sounds Objective Current Medications Medications (Trade) Dose Ordered Sig/Dunia Route PRN Reason Start Time Stop Time Status Last Admin Dose Admin Acetaminophen (Tylenol) 650 mg Q4H PRN ORAL fever 10/29/17 22:00 11/28/17 21:59 Albuterol/ Ipratropium (Albuterol/ Ipratropium) 3 ml EVERY 4 HOURS PRN HHN Shortness of Breath 10/29/17 22:00 11/03/17 21:59 Amlodipine Besylate (Norvasc) 5 mg DAILY ORAL 10/30/17 09:00 11/29/17 08:59 10/31/17 08:30 Atorvastatin Calcium (Lipitor) 10 mg BEDTIME ORAL 10/30/17 21:00 11/29/17 20:59 10/30/17 21:12 Dextrose (Dextrose 50%) STAT PRN IV Hypoglycemia 10/29/17 22:00 11/28/17 21:59 Dextrose (Dextrose 50%) 25 ml STAT PRN IV Hypoglycemia 10/30/17 12:15 11/29/17 12:14 10/30/17 17:07 Dextrose (Dextrose 50%) 50 ml STAT PRN IV Hypoglycemia 10/30/17 12:15 11/29/17 12:14 Docusate Sodium (Colace) 100 mg TWICE A DAY ORAL 10/30/17 18:00 11/29/17 17:59 10/31/17 08:31 Duloxetine HCl (Cymbalta) 30 mg DAILY ORAL 10/30/17 09:00 11/29/17 08:59 10/31/17 08:30 Heparin Sodium (Porcine) (Heparin 5000 units/ml) 5,000 units EVERY 12 HOURS SUBQ 10/30/17 09:00 11/29/17 08:59 10/31/17 08:32 Insulin Aspart (NovoLOG) BEFORE MEALS AND HS SUBQ 10/30/17 06:30 11/29/17 06:29 10/31/17 06:29 Insulin Aspart (NovoLOG) 6 units NOVOTIAC SUBQ 10/30/17 12:15 11/29/17 12:14 10/30/17 12:54 Insulin Detemir (Levemir) 12 units BID SUBQ 10/30/17 18:00 11/29/17 08:59 10/31/17 08:41 Metoclopramide HCl (Reglan) 5 mg BEFORE MEALS ORAL 10/30/17 16:30 11/29/17 16:29 10/31/17 06:26 Metoprolol Succinate (Toprol XL) 50 mg Q12HR ORAL 10/30/17 09:00 11/29/17 08:59 10/31/17 08:31 Morphine Sulfate (Morphine Sulfate) 2 mg Q4H PRN IVP moderate pain scale (4 to 6) 10/29/17 23:00 11/05/17 22:59 Nitroglycerin (Ntg) 0.4 mg Q5M PRN SL Prn Chest Pain 10/29/17 22:00 11/28/17 21:59 Ondansetron HCl (Zofran) 4 mg Q6H PRN IVP Nausea & Vomiting 10/29/17 22:00 11/28/17 21:59 Polyethylene Glycol (Miralax) 17 gm DAILYPRN PRN ORAL Constipation 10/29/17 22:00 11/28/17 21:59 Sevelamer Carbonate (Renvela) 800 mg THREE TIMES A DAY ORAL 10/30/17 09:00 11/29/17 08:59 10/31/17 08:31 Sodium Chloride 1,000 ml @ 75 mls/hr [id number] IV 10/30/17 16:00 11/29/17 15:59 10/31/17 05:20 Sodium Citrate (Bicitra) 30 ml EVERY 6 HOURS ORAL 10/30/17 18:00 11/29/17 17:59 10/31/17 06:26 Temazepam (Restoril) 15 mg HSPRN PRN ORAL Insomnia 10/29/17 22:00 11/05/17 21:59 Item Value Date Time Bedside Blood Glucose 101 mg/dl 10/31/17 0630 Bedside Blood Glucose 182 mg/dl H 10/30/175 MALKA SHERIFF Oct 31, 2017 10:15
[2017-10-31 10:47] LABS: BASOPHILS % (AUTO) 0.5 % (0.0-2.0); HEMATOCRIT 36.4 % (42.0-52.0); LYMPHOCYTES % (AUTO) 23.3 % (20.0-45.0); MEAN CORPUSCULAR VOLUME 95 FL (80-99); MONOCYTES % (AUTO) 8.2 % (1.0-10.0); PLATELET COUNT 266 K/UL (150-450); RED BLOOD COUNT 3.83 M/UL (4.70-6.10); RED CELL DISTRIBUTION WIDTH 16.6 % (11.6-14.8); WHITE BLOOD COUNT 6.7 K/UL (4.8-10.8)
[2017-10-31 11:41] LABS: ALANINE AMINOTRANSFERASE 20 U/L (12-78); ALBUMIN 2.7 G/DL (3.4-5.0); ALBUMIN/GLOBULIN RATIO 0.8 (1.0-2.7); ALKALINE PHOSPHATASE 81 U/L (46-116); ANION GAP 15 mmol/L (5-15); ASPARTATE AMINO TRANSFERASE 17 U/L (15-37); BILIRUBIN,TOTAL 0.4 MG/DL (0.2-1.0); BLOOD UREA NITROGEN 79 mg/dL (7-18); CALCIUM 8.3 MG/DL (8.5-10.1); CARBON DIOXIDE 13 MMOL/L (21-32); CHLORIDE 113 MMOL/L (98-107); CHOLESTEROL 99 MG/DL (< 200); CREATINE KINASE 69 U/L (26-308); CREATININE 5.5 MG/DL (0.55-1.30); GAMMA GLUTAMYL TRANSPEPTIDASE 12 U/L (5-85); HDL CHOLESTEROL 35 MG/DL (40-60); PHOSPHORUS 3.4 MG/DL (2.5-4.9); SODIUM 141 MMOL/L (136-145); TRIGLYCERIDES 253 MG/DL (30-150)
[2017-10-31 12:00] VITALS: BP 112/59
--- NOTE | 2017-10-31 14:29 | Internal Med Progress Note ---
Subjective Date of Service: Oct 31, 2017 Physician Name Dee Maher Attending Physician Christopher Rosado MD Current Medications Medications (Trade) Dose Ordered Sig/Duina Route PRN Reason Start Time Stop Time Status Last Admin Dose Admin Acetaminophen (Tylenol) 650 mg Q4H PRN ORAL fever 10/29/17 22:00 11/28/17 21:59 Albuterol/ Ipratropium (Albuterol/ Ipratropium) 3 ml EVERY 4 HOURS PRN HHN Shortness of Breath 10/29/17 22:00 11/03/17 21:59 Amlodipine Besylate (Norvasc) 5 mg DAILY ORAL 10/30/17 09:00 11/29/17 08:59 10/31/17 08:30 Atorvastatin Calcium (Lipitor) 10 mg BEDTIME ORAL 10/30/17 21:00 11/29/17 20:59 10/30/17 21:12 Dextrose (Dextrose 50%) STAT PRN IV Hypoglycemia 10/29/17 22:00 11/28/17 21:59 Dextrose (Dextrose 50%) 25 ml STAT PRN IV Hypoglycemia 10/30/17 12:15 11/29/17 12:14 10/30/17 17:07 Dextrose (Dextrose 50%) 50 ml STAT PRN IV Hypoglycemia 10/30/17 12:15 11/29/17 12:14 Docusate Sodium (Colace) 100 mg TWICE A DAY ORAL 10/30/17 18:00 11/29/17 17:59 10/31/17 08:31 Duloxetine HCl (Cymbalta) 30 mg DAILY ORAL 10/30/17 09:00 11/29/17 08:59 10/31/17 08:30 Heparin Sodium (Porcine) (Heparin 5000 units/ml) 5,000 units EVERY 12 HOURS SUBQ 10/30/17 09:00 11/29/17 08:59 10/31/17 08:32 Insulin Aspart (NovoLOG) BEFORE MEALS AND HS SUBQ 10/30/17 06:30 11/29/17 06:29 10/31/17 06:29 Insulin Aspart (NovoLOG) 6 units NOVOTIAC SUBQ 10/30/17 12:15 11/29/17 12:14 10/30/17 12:54 Insulin Detemir (Levemir) 12 units BID SUBQ 4/21/18 18:00 11/29/17 08:59 10/31/17 08:41 Metoclopramide HCl (Reglan) 5 mg BEFORE MEALS ORAL 10/30/17 16:30 11/29/17 16:29 10/31/17 06:26 Metoprolol Succinate (Toprol XL) 50 mg Q12HR ORAL 10/30/17 09:00 11/29/17 08:59 10/31/17 08:31 Morphine Sulfate (Morphine Sulfate) 2 mg Q4H PRN IVP moderate pain scale (4 to 6) 10/29/17 23:00 11/05/17 22:59 Nitroglycerin (Ntg) 0.4 mg Q5M PRN SL Prn Chest Pain 10/29/17 22:00 11/28/17 21:59 Ondansetron HCl (Zofran) 4 mg Q6H PRN IVP Nausea & Vomiting 10/29/17 22:00 11/28/17 21:59 Polyethylene Glycol (Miralax) 17 gm DAILYPRN PRN ORAL Constipation 10/29/17 22:00 11/28/17 21:59 Sevelamer Carbonate (Renvela) 800 mg THREE TIMES A DAY ORAL 10/30/17 09:00 11/29/17 08:59 10/31/17 08:31 Sodium Chloride 1,000 ml @ 75 mls/hr [id number] IV 10/30/17 16:00 11/29/17 15:59 10/31/17 05:20 Sodium Citrate (Bicitra) 30 ml EVERY 6 HOURS ORAL 10/30/17 18:00 11/29/17 17:59 10/31/17 06:26 Temazepam (Restoril) 15 mg HSPRN PRN ORAL Insomnia 10/29/17 22:00 11/05/17 21:59 Allergies: Coded Allergies: CEFEPIME (Verified Allergy, Intermediate, Rash, 01/23/13) ROS Limited/Unobtainable: No Constitutional: Reports: no symptoms HEENT: Reports: no symptoms Cardiovascular: Reports: no symptoms Respiratory: Reports: no symptoms Gastrointestinal/Abdominal: Reports: no symptoms Genitourinary: Reports: no symptoms Neurologic/Psychiatric: Reports: no symptoms Subjective 62 YO M admitted with hyperglycemia. Cover for Int Pierre - Dr Rosado Objective Last Vital Signs Date Time Temp Pulse Resp B/P (MAP) Pulse Ox O2 Delivery O2 Flow Rate FiO2 10/31/17 08:31 74 159/81 10/31/17 08:00 98.7 20 99 Room Air 98.7 General Appearance: WD/WN, no apparent distress, alert EENT: PERRL/EOMI, normal ENT inspection Neck: non-tender, normal alignment, supple, normal inspection Cardiovascular: normal peripheral pulses, normal rate, regular rhythm, no gallop/murmur, no JVD Respiratory/Chest: chest wall non-tender, lungs clear, normal breath sounds, no respiratory distress, no accessory muscle use Abdomen: normal bowel sounds, non tender, soft, no organomegaly, no mass Extremities: normal range of motion, non-tender 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 Skin: normal pigmentation, warm/dry Laboratory Tests Test 10/31/17 10:23 White Blood Count 6.7 K/UL (4.8-10.8) Red Blood Count 3.83 M/UL (4.70-6.10) L Hemoglobin 12.0 G/DL (14.2-18.0) L Hematocrit 36.4 % (42.0-52.0) L Mean Corpuscular Volume 95 FL (80-99) Mean Corpuscular Hemoglobin 31.3 PG (27.0-31.0) H Mean Corpuscular Hemoglobin Concent 33.0 G/DL (32.0-36.0) Red Cell Distribution Width 16.6 % (11.6-14.8) H Platelet Count 266 K/UL (150-450) Mean Platelet Volume 7.3 FL (6.5-10.1) Neutrophils (%) (Auto) 64.0 % (45.0-75.0) Lymphocytes (%) (Auto) 23.3 % (20.0-45.0) Monocytes (%) (Auto) 8.2 % (1.0-10.0) Eosinophils (%) (Auto) 4.0 % (0.0-3.0) H Basophils (%) (Auto) 0.5 % (0.0-2.0) Sodium Level 141 MMOL/L (136-145) Potassium Level 4.0 MMOL/L (3.5-5.1) Chloride Level 113 MMOL/L (98-107) H Carbon Dioxide Level 13 MMOL/L (21-32) L Anion Gap 15 mmol/L (5-15) Blood Urea Nitrogen 79 mg/dL (7-18) H Creatinine 5.5 MG/DL (0.55-1.30) H Estimat Glomerular Filtration Rate 10.6 mL/min (>60) Glucose Level 285 MG/DL (74-106) #H Hemoglobin A1c 7.1 % (4.3-6.0) H Uric Acid 7.9 MG/DL (2.6-7.2) H Calcium Level 8.3 MG/DL (8.5-10.1) L Phosphorus Level 3.4 MG/DL (2.5-4.9) Magnesium Level 3.1 MG/DL (1.8-2.4) H Total Bilirubin 0.4 MG/DL (0.2-1.0) Gamma Glutamyl Transpeptidase 12 U/L (5-85) Aspartate Amino Transf (AST/SGOT) 17 U/L (15-37) Alanine Aminotransferase (ALT/SGPT) 20 U/L (12-78) Alkaline Phosphatase 81 U/L (46-116) Total Creatine Kinase 69 U/L (26-308) Troponin I 0.012 ng/mL (0.000-0.056) Pro-B-Type Natriuretic Peptide 1354 pg/mL (0-125) H Total Protein 6.3 G/DL (6.4-8.2) L Albumin 2.7 G/DL (3.4-5.0) L Globulin 3.6 g/dL Albumin/Globulin Ratio 0.8 (1.0-2.7) L Triglycerides Level 253 MG/DL (30-150) H Cholesterol Level 99 MG/DL (< 200) LDL Cholesterol 44 mg/dL (<100) HDL Cholesterol 35 MG/DL (40-60) L Cholesterol/HDL Ratio 2.8 (3.3-4.4) L Thyroid Stimulating Hormone (TSH) 2.814 uiU/mL (0.358-3.740) Microbiology Date/Time Source Procedure Growth Status 10/30/17 09:35 Urine,Clean Catch Urine Culture - Preliminary NO GROWTH Resulted Intake and Output 10/30/17 10/31/17 19:00 07:00 Intake Total 235 ml 750 ml Output Total 1000 ml Balance 235 ml -250 ml Intake Oral 160 ml IV Total 75 ml 750 ml Output Urine Total 1000 ml # Voids 3 Assessment/Plan Problem List: (1) Blind left eye (2) CKD (chronic kidney disease), stage III (3) Acute hyperglycemia (4) Anemia (5) Diabetes mellitus out of control Assessment & Plan: Continue levemir and novolog sliding scale per endocrinology (6) Hyperparathyroidism (7) Gastritis (8) CAD (coronary artery disease) (9) HTN (hypertension) Assessment & Plan: continue norvasc and toprolol (10) BPH (benign prostatic hypertrophy) Status: not improved DEE MAHER Oct 31, 2017 14:29
[2017-10-31 16:00] VITALS: BP 129/64
[2017-10-31 20:00] VITALS: BP 133/75
--- NOTE | 2017-10-31 21:38 | Pulmonology Progress Note ---
Assessment/Plan Problems: (1) Uncontrolled diabetes mellitus (2) Pulmonary HTN (3) ESRD (end stage renal disease) (4) Renal transplant recipient (5) HTN (hypertension) (6) CAD (coronary artery disease) (7) Psychiatric disturbance (8) Coronary heart disease Assessment/Plan iv fluids sliding scale continue short and long acting insulin titrate fio2 to sat of 925 psych f/u monitor BP avoid nephrotxic check electrolytes. Subjective ROS Limited/Unobtainable: No Constitutional: Reports: no symptoms HEENT: Repors: no symptoms Respiratory: Reports: no symptoms Allergies: Coded Allergies: CEFEPIME (Verified Allergy, Intermediate, Rash, 01/23/13) Objective Last 24 Hour Vital Signs Date Time Temp Pulse Resp B/P (MAP) Pulse Ox O2 Delivery O2 Flow Rate FiO2 10/31/17 20:00 97.7 62 20 133/75 98 97.7 10/31/17 16:00 97.5 83 19 129/64 97 Room Air 97.5 10/31/17 12:00 97.6 72 18 112/59 98 Room Air 97.6 10/31/17 08:31 74 159/81 10/31/17 08:30 74 159/81 10/31/17 08:00 98.7 74 20 159/81 99 Room Air 98.7 10/31/17 04:00 98.1 64 20 137/70 100 98.1 10/31/17 00:00 98.0 65 20 110/55 100 98.0 Intake and Output 10/30/17 10/31/17 19:00 07:00 Intake Total 235 ml 750 ml Output Total 1000 ml Balance 235 ml -250 ml Intake Oral 160 ml IV Total 75 ml 750 ml Output Urine Total 1000 ml # Voids 3 General Appearance: WD/WN HEENT: normocephalic, atraumatic Respiratory/Chest: chest wall non-tender, lungs clear Cardiovascular: normal peripheral pulses, normal rate Abdomen: normal bowel sounds, soft, non tender Extremities: no cyanosis, no clubbing Skin: no lesions Neurologic/Psychiatric: demand manager II-XII grossly normal Microbiology Date/Time Source Procedure Growth Status 10/30/17 09:35 Urine,Clean Catch Urine Culture - Preliminary NO GROWTH Resulted Laboratory Tests 10/31/17 10:23: White Blood Count 6.7, Red Blood Count 3.83L, Hemoglobin 12.0L, Hematocrit 36.4L , Mean Corpuscular Volume 95, Mean Corpuscular Hemoglobin 31.3H, Mean Corpuscular Hemoglobin Concent 33.0, Red Cell Distribution Width 16.6H, Platelet Count 266, Mean Platelet Volume 7.3, Neutrophils (%) (Auto) 64.0, Lymphocytes (%) (Auto) 23.3, Monocytes (%) (Auto) 8.2, Eosinophils (%) (Auto) 4.0H, Basophils (%) (Auto) 0.5, Sodium Level 141, Potassium Level 4.0, Chloride Level 113H, Carbon Dioxide Level 13L, Anion Gap 15, Blood Urea Nitrogen 79H, Creatinine 5.5H, Estimat Glomerular Filtration Rate 10.6, Glucose Level 285#H, Hemoglobin A1c 7.1H, Uric Acid 7.9H, Calcium Level 8.3L, Phosphorus Level 3.4, Magnesium Level 3.1H, Total Bilirubin 0.4, Gamma Glutamyl Transpeptidase 12, Aspartate Amino Transf (AST/SGOT) 17, Alanine Aminotransferase (ALT/SGPT) 20, Alkaline Phosphatase 81, Total Creatine Kinase 69, Troponin I 0.012, Pro-B-Type Natriuretic Peptide 1354H, Total Protein 6.3L, Albumin 2.7L, Globulin 3.6, Albumin/Globulin Ratio 0.8L, Triglycerides Level 253H, Cholesterol Level 99, LDL Cholesterol 44, HDL Cholesterol 35L, Cholesterol/HDL Ratio 2.8L, Thyroid Stimulating Hormone (TSH) 2.814 Current Medications Medications (Trade) Dose Ordered Sig/Dunia Route PRN Reason Start Time Stop Time Status Last Admin Dose Admin Acetaminophen (Tylenol) 650 mg Q4H PRN ORAL fever 10/29/17 22:00 11/28/17 21:59 Albuterol/ Ipratropium (Albuterol/ Ipratropium) 3 ml EVERY 4 HOURS PRN HHN Shortness of Breath 10/29/17 22:00 11/03/17 21:59 Amlodipine Besylate (Norvasc) 5 mg DAILY ORAL 10/30/17 09:00 11/29/17 08:59 10/31/17 08:30 Atorvastatin Calcium (Lipitor) 10 mg BEDTIME ORAL 10/30/17 21:00 11/29/17 20:59 10/30/17 21:12 Dextrose (Dextrose 50%) STAT PRN IV Hypoglycemia 10/29/17 22:00 11/28/17 21:59 Dextrose (Dextrose 50%) 25 ml STAT PRN IV Hypoglycemia 10/30/17 12:15 11/29/17 12:14 10/30/17 17:07 Dextrose (Dextrose 50%) 50 ml STAT PRN IV Hypoglycemia 10/30/17 12:15 11/29/17 12:14 Docusate Sodium (Colace) 100 mg TWICE A DAY ORAL 10/30/17 18:00 11/29/17 17:59 10/31/17 17:21 Duloxetine HCl (Cymbalta) 30 mg DAILY ORAL 10/30/17 09:00 11/29/17 08:59 10/31/17 08:30 Heparin Sodium (Porcine) (Heparin 5000 units/ml) 5,000 units EVERY 12 HOURS SUBQ 10/30/17 09:00 11/29/17 08:59 10/31/17 08:32 Insulin Aspart (NovoLOG) BEFORE MEALS AND HS SUBQ 10/30/17 06:30 11/29/17 06:29 10/31/17 06:29 Insulin Aspart (NovoLOG) 6 units NOVOTIAC SUBQ 10/30/17 12:15 11/29/17 12:14 10/31/17 17:34 Insulin Detemir (Levemir) 12 units BID SUBQ 10/30/17 18:00 11/29/17 08:59 10/31/17 17:33 Metoclopramide HCl (Reglan) 5 mg BEFORE MEALS ORAL 10/30/17 16:30 11/29/17 16:29 10/31/17 17:21 Metoprolol Succinate (Toprol XL) 50 mg Q12HR ORAL 10/30/17 09:00 11/29/17 08:59 10/31/17 08:31 Morphine Sulfate (Morphine Sulfate) 2 mg Q4H PRN IVP moderate pain scale (4 to 6) 10/29/17 23:00 11/05/17 22:59 Nitroglycerin (Ntg) 0.4 mg Q5M PRN SL Prn Chest Pain 10/29/17 22:00 11/28/17 21:59 Ondansetron HCl (Zofran) 4 mg Q6H PRN IVP Nausea & Vomiting 10/29/17 22:00 11/28/17 21:59 Polyethylene Glycol (Miralax) 17 gm DAILYPRN PRN ORAL Constipation 10/29/17 22:00 11/28/17 21:59 Sevelamer Carbonate (Renvela) 800 mg THREE TIMES A DAY ORAL 10/30/17 09:00 11/29/17 08:59 10/31/17 17:21 Sodium Chloride 1,000 ml @ 75 mls/hr [id number] IV 10/30/17 16:00 11/29/17 15:59 10/31/17 17:32 Sodium Citrate (Bicitra) 30 ml EVERY 6 HOURS ORAL 10/30/17 18:00 11/29/17 17:59 10/31/17 17:29 Temazepam (Restoril) 15 mg HSPRN PRN ORAL Insomnia 10/29/17 22:00 11/05/17 21:59 Esdras Delgado MD Oct 31, 2017 21:38
[2017-11-01] VITALS (7 sets, daily range): BP systolic 111–159; BP diastolic 57–79
[2017-11-01] MEDS: Sodium Citrate 30ml ORAL SCH ×3 (06:42→18:00)
[2017-11-01] MEDS: NovoLOG Insulin Flexpen SUBQ SCH ×7 (06:45→21:00)
[2017-11-01] MEDS: Metoprolol Succinate XL 50mg tab ORAL SCH ×2 (08:58→21:00)
[2017-11-01] MEDS: Docusate 100mg cap ORAL SCH ×2 (08:59→18:00)
[2017-11-01] MEDS: Renvela 800mg Pkt ORAL SCH ×3 (08:59→18:00)
[2017-11-01] MEDS: DULoxetine 30mg cap ORAL SCH (08:59)
[2017-11-01] MEDS: Heparin 5000 units/ml inj SUBQ SCH ×2 (09:02→21:00)
[2017-11-01] MEDS: Levemir Flexpen SUBQ SCH ×2 (09:04→18:09)
--- NOTE | 2017-11-01 11:22 | Internal Med Progress Note ---
Subjective Physician Name Dee Maher Attending Physician Christopher Rosado MD Current Medications Medications (Trade) Dose Ordered Sig/Dunia Route PRN Reason Start Time Stop Time Status Last Admin Dose Admin Acetaminophen (Tylenol) 650 mg Q4H PRN ORAL fever 10/29/17 22:00 11/28/17 21:59 Albuterol/ Ipratropium (Albuterol/ Ipratropium) 3 ml EVERY 4 HOURS PRN HHN Shortness of Breath 10/29/17 22:00 11/03/17 21:59 Amlodipine Besylate (Norvasc) 5 mg DAILY ORAL 10/30/17 09:00 11/29/17 08:59 11/01/17 08:59 Atorvastatin Calcium (Lipitor) 10 mg BEDTIME ORAL 10/30/17 21:00 11/29/17 20:59 10/31/17 22:02 Dextrose (Dextrose 50%) STAT PRN IV Hypoglycemia 10/29/17 22:00 11/28/17 21:59 Dextrose (Dextrose 50%) 25 ml STAT PRN IV Hypoglycemia 10/30/17 12:15 11/29/17 12:14 10/30/17 17:07 Dextrose (Dextrose 50%) 50 ml STAT PRN IV Hypoglycemia 10/30/17 12:15 11/29/17 12:14 Docusate Sodium (Colace) 100 mg TWICE A DAY ORAL 10/30/17 18:00 11/29/17 17:59 11/01/17 08:59 Duloxetine HCl (Cymbalta) 30 mg DAILY ORAL 10/30/17 09:00 11/29/17 08:59 11/01/17 08:59 Heparin Sodium (Porcine) (Heparin 5000 units/ml) 5,000 units EVERY 12 HOURS SUBQ 10/30/17 09:00 11/29/17 08:59 11/01/17 09:02 Insulin Aspart (NovoLOG) BEFORE MEALS AND HS SUBQ 10/30/17 06:30 11/29/17 06:29 11/01/17 06:45 Insulin Aspart (NovoLOG) 6 units NOVOTIAC SUBQ 10/30/17 12:15 11/29/17 12:14 11/01/17 06:46 Insulin Detemir (Levemir) 12 units BID SUBQ 10/30/17 18:00 5/21/18 08:59 11/01/17 09:04 Metoclopramide HCl (Reglan) 5 mg BEFORE MEALS ORAL 10/30/17 16:30 11/29/17 16:29 11/01/17 06:42 Metoprolol Succinate (Toprol XL) 50 mg Q12HR ORAL 10/30/17 09:00 11/29/17 08:59 11/01/17 08:58 Morphine Sulfate (Morphine Sulfate) 2 mg Q4H PRN IVP moderate pain scale (4 to 6) 10/29/17 23:00 11/05/17 22:59 Nitroglycerin (Ntg) 0.4 mg Q5M PRN SL Prn Chest Pain 10/29/17 22:00 11/28/17 21:59 Ondansetron HCl (Zofran) 4 mg Q6H PRN IVP Nausea & Vomiting 10/29/17 22:00 11/28/17 21:59 Polyethylene Glycol (Miralax) 17 gm DAILYPRN PRN ORAL Constipation 10/29/17 22:00 11/28/17 21:59 Sevelamer Carbonate (Renvela) 800 mg THREE TIMES A DAY ORAL 10/30/17 09:00 11/29/17 08:59 11/01/17 08:59 Sodium Chloride 1,000 ml @ 75 mls/hr [id number] IV 10/30/17 16:00 11/29/17 15:59 11/01/17 08:59 Sodium Citrate (Bicitra) 30 ml EVERY 6 HOURS ORAL 10/30/17 18:00 11/29/17 17:59 11/01/17 06:42 Temazepam (Restoril) 15 mg HSPRN PRN ORAL Insomnia 10/29/17 22:00 11/05/17 21:59 Allergies: Coded Allergies: CEFEPIME (Verified Allergy, Intermediate, Rash, 01/23/13) ROS Limited/Unobtainable: No Constitutional: Reports: no symptoms HEENT: Reports: no symptoms Cardiovascular: Reports: no symptoms Respiratory: Reports: no symptoms Gastrointestinal/Abdominal: Reports: no symptoms Genitourinary: Reports: no symptoms Neurologic/Psychiatric: Reports: no symptoms Subjective 62 YO M admitted with hyperglycemia. Cover for Int Pierre - Dr Rosado Objective Last Vital Signs Date Time Temp Pulse Resp B/P (MAP) Pulse Ox O2 Delivery O2 Flow Rate FiO2 11/01/17 08:59 69 135/68 11/01/17 08:00 97.1 19 97 Room Air 97.1 Microbiology Date/Time Source Procedure Growth Status 10/30/17 07:20 Blood Blood Culture - Preliminary NO GROWTH AFTER 24 HOURS Resulted 10/30/17 07:15 Blood Blood Culture - Preliminary NO GROWTH AFTER 24 HOURS Resulted 10/29/17 20:32 Nasal Nares MRSA Culture - Final NO METHICILLIN RESISTANT STAPH AUREUS... Complete 10/30/17 09:35 Urine,Clean Catch Urine Culture - Preliminary NO GROWTH AFTER 24 HOURS Resulted 10/29/17 20:32 Rectum VRE Culture - Final Enterococcus Faecium - Vre Complete Intake and Output 10/31/17 11/01/17 19:00 07:00 Intake Total 520 ml 920 ml Output Total 1000 ml 420 ml Balance -480 ml 500 ml Intake Oral 520 ml 320 ml IV Total 600 ml Output Urine Total 1000 ml 420 ml # Bowel Movements 1 1 Objective General Appearance: WD/WN, no apparent distress, alert EENT: PERRL/EOMI, normal ENT inspection Neck: non-tender, normal alignment, supple, normal inspection Cardiovascular: normal peripheral pulses, normal rate, regular rhythm, no gallop/murmur, no JVD Respiratory/Chest: chest wall non-tender, lungs clear, normal breath sounds, no respiratory distress, no accessory muscle use Abdomen: normal bowel sounds, non tender, soft, no organomegaly, no mass Extremities: normal range of motion, non-tender 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 (3) Acute hyperglycemia (4) Anemia (5) Diabetes mellitus out of control Assessment & Plan: Improving. Continue levemir and novolog sliding scale per endocrinology (6) Hyperparathyroidism (7) Gastritis (8) CAD (coronary artery disease) (9) HTN (hypertension) Assessment & Plan: continue norvasc and toprolol (10) BPH (benign prostatic hypertrophy) (11) Bladder outlet obstruction Assessment & Plan: suprapubic cath Status: progressing DEE MAHER Nov 01, 2017 11:22
--- NOTE | 2017-11-01 12:38 | Infectious Diseases Prog Note ---
Assessment/Plan Assessment/Plan ASSESSMENT: The patient is a 62-year-old male with: 1. Report of bacteremia prior to this admission (the patient is a poor historian , there is no information available regarding that). 4/ Bcx NTD Ucx NTD 2. Afebrile. 3. No Leukocytosis. 4. Uncontrolled diabetes. 5. No evidence of sepsis, urinary tract infection at this point. -. hx of recent hematuria, penile extensive herrohage with surrounidng cellulitis 09/2016, s/p Rx -s/p suprapubic cystostomy 09/28; re inserted 10/01 after patient pull it off -. History of suprapubic catheter placement. -. History of CKD, status post hemodialysis. -. 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 -. History of coag-negative Staph bacteremia in July 2007, [facility] was negative for endocarditis (due to bacteremia due to the PICC line infection). -. History of enterococcus bacteremia in May 2017. -. History of suicidal attempt. -. History of myocardial infarction. -. Anemia. -. History of colon polyp. -. History of CAD. -. History of hypertension. -. Diabetes. PLAN: 1. We will monitor the patient off of antibiotics -10/06 SP Doxycycline and Levaquin #4 -10/02 SP IV Vanco/Aztreonam #6 -09/10 SP Daptomycin #34 2. We will try to contact the senior living to get further information regarding if any documentation of bacteremia. 3. Monitor CBC. 4. Monitor BMP. 5. f/u blood and urine culture. 6. Monitor chest x-ray. 7. Based on the patient's clinical course and labs, we will do further recommendations. Thank you for this consultation. We will follow the patient during this admission. Subjective Allergies: Coded Allergies: CEFEPIME (Verified Allergy, Intermediate, Rash, 01/23/13) Subjective afebrile no leukcoytosis Bcx NTD offa bx Objective Vital Signs Last 24 Hour Vital Signs Date Time Temp Pulse Resp B/P (MAP) Pulse Ox O2 Delivery O2 Flow Rate FiO2 11/01/17 12:00 98.3 78 20 136/72 99 Room Air 98.3 78 11/01/17 08:59 69 135/68 11/01/17 08:58 69 135/68 11/01/17 08:00 97.1 69 19 135/68 97 Room Air 97.1 69 11/01/17 03:49 98.2 67 20 131/77 99 98.2 11/01/17 00:15 97.0 66 20 134/72 99 97.0 11/01/17 00:00 97.6 59 20 159/79 99 97.6 10/31/17 22:02 62 133/75 10/31/17 20:00 97.7 62 20 133/75 98 97.7 10/31/17 16:00 97.5 83 19 129/64 97 Room Air 97.5 Height (Feet): 5 Height (Inches): 10.00 Weight (Pounds): 170 Objective HEENT: No pale conjunctivae. No icterus. NECK: No lymphadenopathy. CHEST: Clear. HEART: S1, S2. ABDOMEN: Soft, nontender. Suprapubic catheter present. EXTREMITIES: No cyanosis. Microbiology Date/Time Source Procedure Growth Status 10/30/17 07:20 Blood Blood Culture - Preliminary NO GROWTH AFTER 24 HOURS Resulted 10/30/17 07:15 Blood Blood Culture - Preliminary NO GROWTH AFTER 24 HOURS Resulted 10/29/17 20:32 Nasal Nares MRSA Culture - Final NO METHICILLIN RESISTANT STAPH AUREUS... Complete 10/30/17 09:35 Urine,Clean Catch Urine Culture - Preliminary NO GROWTH AFTER 24 HOURS Resulted 10/29/17 20:32 Rectum VRE Culture - Final Enterococcus Faecium - Vre Complete Current Medications Medications (Trade) Dose Ordered Sig/Dunia Route PRN Reason Start Time Stop Time Status Last Admin Dose Admin Acetaminophen (Tylenol) 650 mg Q4H PRN ORAL fever 10/29/17 22:00 11/28/17 21:59 Albuterol/ Ipratropium (Albuterol/ Ipratropium) 3 ml EVERY 4 HOURS PRN HHN Shortness of Breath 10/29/17 22:00 11/03/17 21:59 Amlodipine Besylate (Norvasc) 5 mg DAILY ORAL 10/30/17 09:00 11/29/17 08:59 11/01/17 08:59 Atorvastatin Calcium (Lipitor) 10 mg BEDTIME ORAL 10/30/17 21:00 11/29/17 20:59 10/31/17 22:02 Dextrose (Dextrose 50%) STAT PRN IV Hypoglycemia 10/29/17 22:00 11/28/17 21:59 Dextrose (Dextrose 50%) 25 ml STAT PRN IV Hypoglycemia 10/30/17 12:15 11/29/17 12:14 10/30/17 17:07 Dextrose (Dextrose 50%) 50 ml STAT PRN IV Hypoglycemia 10/30/17 12:15 11/29/17 12:14 Docusate Sodium (Colace) 100 mg TWICE A DAY ORAL 10/30/17 18:00 11/29/17 17:59 11/01/17 08:59 Duloxetine HCl (Cymbalta) 30 mg DAILY ORAL 10/30/17 09:00 11/29/17 08:59 11/01/17 08:59 Heparin Sodium (Porcine) (Heparin 5000 units/ml) 5,000 units EVERY 12 HOURS SUBQ 10/30/17 09:00 11/29/17 08:59 11/01/17 09:02 Insulin Aspart (NovoLOG) BEFORE MEALS AND HS SUBQ 10/30/17 06:30 11/29/17 06:29 11/01/17 06:45 Insulin Aspart (NovoLOG) 6 units NOVOTIAC SUBQ 10/30/17 12:15 11/29/17 12:14 11/01/17 06:46 Insulin Detemir (Levemir) 12 units BID SUBQ 10/30/17 18:00 11/29/17 08:59 11/01/17 09:04 Metoclopramide HCl (Reglan) 5 mg BEFORE MEALS ORAL 10/30/17 16:30 11/29/17 16:29 11/01/17 06:42 Metoprolol Succinate (Toprol XL) 50 mg Q12HR ORAL 10/30/17 09:00 11/29/17 08:59 11/01/17 08:58 Morphine Sulfate (Morphine Sulfate) 2 mg Q4H PRN IVP moderate pain scale (4 to 6) 10/29/17 23:00 11/05/17 22:59 Nitroglycerin (Ntg) 0.4 mg Q5M PRN SL Prn Chest Pain 10/29/17 22:00 11/28/17 21:59 Ondansetron HCl (Zofran) 4 mg Q6H PRN IVP Nausea & Vomiting 10/29/17 22:00 11/28/17 21:59 Polyethylene Glycol (Miralax) 17 gm DAILYPRN PRN ORAL Constipation 10/29/17 22:00 11/28/17 21:59 Sevelamer Carbonate (Renvela) 800 mg THREE TIMES A DAY ORAL 10/30/17 09:00 11/29/17 08:59 11/01/17 08:59 Sodium Chloride 1,000 ml @ 75 mls/hr [id number] IV 10/30/17 16:00 11/29/17 15:59 11/01/17 08:59 Sodium Citrate (Bicitra) 30 ml EVERY 6 HOURS ORAL 10/30/17 18:00 11/29/17 17:59 11/01/17 06:42 Temazepam (Restoril) 15 mg HSPRN PRN ORAL Insomnia 10/29/17 22:00 11/05/17 21:59 Monique Read M.D. Nov 01, 2017 12:38
--- NOTE | 2017-11-01 13:09 | Pulmonology Progress Note ---
Assessment/Plan Problems: (1) Uncontrolled diabetes mellitus (2) Pulmonary HTN (3) ESRD (end stage renal disease) (4) Renal transplant recipient (5) HTN (hypertension) (6) CAD (coronary artery disease) (7) Psychiatric disturbance (8) Coronary heart disease Assessment/Plan feeling betteriv fluids sliding scale continue short and long acting insulin titrate fio2 to sat of 925 psych f/u monitor BP avoid nephrotxic check electrolytes. BUN/ creatinine coming down. Subjective ROS Limited/Unobtainable: No Interval Events: doing better Allergies: Coded Allergies: CEFEPIME (Verified Allergy, Intermediate, Rash, 01/23/13) Objective Last 24 Hour Vital Signs Date Time Temp Pulse Resp B/P (MAP) Pulse Ox O2 Delivery O2 Flow Rate FiO2 11/01/17 12:00 98.3 78 20 136/72 99 Room Air 98.3 78 11/01/17 08:59 69 135/68 11/01/17 08:58 69 135/68 11/01/17 08:00 97.1 69 19 135/68 97 Room Air 97.1 69 11/01/17 03:49 98.2 67 20 131/77 99 98.2 11/01/17 00:15 97.0 66 20 134/72 99 97.0 11/01/17 00:00 97.6 59 20 159/79 99 97.6 10/31/17 22:02 62 133/75 10/31/17 20:00 97.7 62 20 133/75 98 97.7 10/31/17 16:00 97.5 83 19 129/64 97 Room Air 97.5 Intake and Output 10/31/17 11/01/17 19:00 07:00 Intake Total 520 ml 920 ml Output Total 1000 ml 420 ml Balance -480 ml 500 ml Intake Oral 520 ml 320 ml IV Total 600 ml Output Urine Total 1000 ml 420 ml # Bowel Movements 1 1 General Appearance: WD/WN Respiratory/Chest: chest wall non-tender, lungs clear Cardiovascular: normal peripheral pulses, normal rate Abdomen: normal bowel sounds, soft, non tender Genitourinary: normal external genitalia Extremities: no cyanosis Skin: no rash 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 Complete 10/30/17 09:35 Urine,Clean Catch Urine Culture - Preliminary NO GROWTH AFTER 24 HOURS Resulted 10/29/17 20:32 Rectum VRE Culture - Final Enterococcus Faecium - Vre Complete Current Medications Medications (Trade) Dose Ordered Sig/Dunia Route PRN Reason Start Time Stop Time Status Last Admin Dose Admin Acetaminophen (Tylenol) 650 mg Q4H PRN ORAL fever 10/29/17 22:00 11/28/17 21:59 Albuterol/ Ipratropium (Albuterol/ Ipratropium) 3 ml EVERY 4 HOURS PRN HHN Shortness of Breath 10/29/17 22:00 11/03/17 21:59 Amlodipine Besylate (Norvasc) 5 mg DAILY ORAL 10/30/17 09:00 11/29/17 08:59 11/01/17 08:59 Atorvastatin Calcium (Lipitor) 10 mg BEDTIME ORAL 10/30/17 21:00 11/29/17 20:59 10/31/17 22:02 Dextrose (Dextrose 50%) STAT PRN IV Hypoglycemia 10/29/17 22:00 11/28/17 21:59 Dextrose (Dextrose 50%) 25 ml STAT PRN IV Hypoglycemia 10/30/17 12:15 11/29/17 12:14 10/30/17 17:07 Dextrose (Dextrose 50%) 50 ml STAT PRN IV Hypoglycemia 10/30/17 12:15 11/29/17 12:14 Docusate Sodium (Colace) 100 mg TWICE A DAY ORAL 10/30/17 18:00 11/29/17 17:59 11/01/17 08:59 Duloxetine HCl (Cymbalta) 30 mg DAILY ORAL 10/30/17 09:00 11/29/17 08:59 11/01/17 08:59 Heparin Sodium (Porcine) (Heparin 5000 units/ml) 5,000 units EVERY 12 HOURS SUBQ 10/30/17 09:00 11/29/17 08:59 11/01/17 09:02 Insulin Aspart (NovoLOG) BEFORE MEALS AND HS SUBQ 10/30/17 06:30 11/29/17 06:29 11/01/17 12:27 Insulin Aspart (NovoLOG) 6 units NOVOTIAC SUBQ 10/30/17 12:15 11/29/17 12:14 11/01/17 12:27 Insulin Detemir (Levemir) 12 units BID SUBQ 10/30/17 18:00 11/29/17 08:59 11/01/17 09:04 Metoclopramide HCl (Reglan) 5 mg BEFORE MEALS ORAL 10/30/17 16:30 11/29/17 16:29 11/01/17 12:22 Metoprolol Succinate (Toprol XL) 50 mg Q12HR ORAL 10/30/17 09:00 11/29/17 08:59 11/01/17 08:58 Morphine Sulfate (Morphine Sulfate) 2 mg Q4H PRN IVP moderate pain scale (4 to 6) 10/29/17 23:00 11/05/17 22:59 Nitroglycerin (Ntg) 0.4 mg Q5M PRN SL Prn Chest Pain 10/29/17 22:00 11/28/17 21:59 Ondansetron HCl (Zofran) 4 mg Q6H PRN IVP Nausea & Vomiting 10/29/17 22:00 11/28/17 21:59 Polyethylene Glycol (Miralax) 17 gm DAILYPRN PRN ORAL Constipation 10/29/17 22:00 11/28/17 21:59 Sevelamer Carbonate (Renvela) 800 mg THREE TIMES A DAY ORAL 10/30/17 09:00 11/29/17 08:59 11/01/17 12:22 Sodium Chloride 1,000 ml @ 75 mls/hr [id number] IV 10/30/17 16:00 11/29/17 15:59 11/01/17 08:59 Sodium Citrate (Bicitra) 30 ml EVERY 6 HOURS ORAL 10/30/17 18:00 11/29/17 17:59 11/01/17 12:22 Temazepam (Restoril) 15 mg HSPRN PRN ORAL Insomnia 10/29/17 22:00 11/05/17 21:59 Esdras Delgado MD Nov 01, 2017 13:09
[2017-11-01 13:23] LABS: BASOPHILS % (AUTO) 0.8 % (0.0-2.0); EOSINOPHILS % (AUTO) 3.5 % (0.0-3.0); HEMATOCRIT 40.5 % (42.0-52.0); HEMOGLOBIN 13.7 G/DL (14.2-18.0); LYMPHOCYTES % (AUTO) 29.8 % (20.0-45.0); MEAN CORPUSCULAR VOLUME 95 FL (80-99); MONOCYTES % (AUTO) 6.2 % (1.0-10.0); NEUTROPHILS % (AUTO) 59.7 % (45.0-75.0); PLATELET COUNT 239 K/UL (150-450); RED BLOOD COUNT 4.28 M/UL (4.70-6.10); RED CELL DISTRIBUTION WIDTH 16.7 % (11.6-14.8); WHITE BLOOD COUNT 7.1 K/UL (4.8-10.8)
[2017-11-01 13:37] LABS: ANION GAP 15 mmol/L (5-15); BLOOD UREA NITROGEN 70 mg/dL (7-18); CALCIUM 8.7 MG/DL (8.5-10.1); CARBON DIOXIDE 13 MMOL/L (21-32); CHLORIDE 110 MMOL/L (98-107); CREATININE 5.2 MG/DL (0.55-1.30); POTASSIUM 3.9 MMOL/L (3.5-5.1); SODIUM 138 MMOL/L (136-145)
--- NOTE | 2017-11-01 15:04 | Consultation ---
History of Present Illness General Date patient seen: Oct 29, 2017 Chief Complaint: Abnormal Labs Reason for Consultation: inpatient management Present Illness HPI 62-year-old male with multiple medical problems as listed below, depression and schizophrenia, who was admitted to this medical center due to uncontrolled diabetes. The pt is [facility]. the pt has been more depressed and low energy. the pt has anhedonia. and anxiety. No si/hi Allergies: Coded Allergies: CEFEPIME (Verified Allergy, Intermediate, Rash, 01/23/13) Medication History Scheduled Amlodipine Besylate (Norvasc), 5 MG ORAL DAILY, (Reported) Atorvastatin Calcium* (Lipitor*), 10 MG ORAL BEDTIME Azathioprine* (Imuran*), 50 MG PO DAILY, (Reported) Doxycycline Hyclate (Doxycycline Hyclate), 100 MG PO BID Doxycycline Hyclate* (Vibramycin*), 100 MG ORAL EVERY 12 HOURS, (Reported) Duloxetine Hcl* (Cymbalta*), 30 MG ORAL DAILY, (Reported) Epoetin Jose (Epogen), 10,000 UNIT SUBQ THREE TIMES A WEEK, (Reported) Insulin Detemir (Levemir Flexpen), 15 UNITS SUBQ BID Lansoprazole* (Prevacid*), 30 MG ORAL DAILY, (Reported) Levofloxacin* (Levaquin*), 500 MG ORAL QOD, (Reported) Metoprolol Succinate* (Metoprolol Succinate*), 50 MG ORAL Q12HR, (Reported) Polyethylene Glycol* (Miralax*), 17 GM ORAL BEDTIME Sevelamer Carbonate* (Renvela*), 800 MG ORAL THREE TIMES A DAY, (Reported) Sevelamer Carbonate* (Renvela*), 800 MG ORAL THREE TIMES A DAY, (Reported) Warfarin Sod* (Coumadin*), 5 MG ORAL DAILY, (Reported) Scheduled PRN Acetaminophen (Acetaminophen), 650 MG ORAL Q6H PRN for Prn Headache/Temp > 101, (Reported) Nitroglycerin (Nitroglycerin), 0.4 MG SL for Prn Chest Pain, (Reported) Temazepam* (Restoril*), 15 MG ORAL BEDTIME PRN for Insomnia, (Reported) Miscellaneous Medications [Novolog ss], (Reported) Patient History Limited by: medical condition History Provided By: Patient, Medical Record, PMD Healthcare decision maker Paul Cota Resuscitation status Advanced Directive on File Yes Past Medical/Surgical History Past Medical/Surgical History: (1) Pancreatitis (2) Anemia (3) DKA (diabetic ketoacidoses) (4) Hypoparathyroidism (5) CKD (chronic kidney disease), stage III (6) BPH (benign prostatic hyperplasia) (7) Elevated lipase (8) Acute hyperglycemia (9) Hematemesis (10) Hypokalemia (11) Renal osteodystrophy (12) Hematuria (13) Hematuria (14) Gastrointestinal hemorrhage (15) Gastrointestinal hemorrhage (16) Bacteremia (17) Coagulopathy (18) Gastritis (19) GI bleeding (20) GI hemorrhage (21) Hypercholesteremia (22) Hyponatremia (23) Retention, urine (24) Urine retention (25) Iron deficiency anemia (26) Sepsis (27) UTI (urinary tract infection) (28) DVT (deep venous thrombosis) (29) Vitamin D deficiency (30) Fall (31) Encephalopathy acute (32) Head trauma (33) Head trauma (34) UTI (lower urinary tract infection) (35) Colon polyps (36) Scrotal edema (37) Abnormal laboratory test result (38) RIVKA (acute kidney injury) (39) Laceration of lip (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, diabetic, left eye (41) Excessive anticoagulation (42) DVT of axillary vein, chronic (43) History of simultaneous kidney and pancreas transplant (44) urinary retention (45) Nephropathy, diabetic (46) Renal mass, right (47) ESRD (end stage renal disease) (48) Uncontrolled diabetes mellitus (49) Hyperparathyroidism (50) Acidosis, metabolic (51) Diabetes mellitus out of control (52) Hyperglycemia due to type 2 diabetes mellitus (53) BPH (benign prostatic hypertrophy) (54) Gastritis (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 difficile colitis (69) Staphylococcus aureus pneumonia (70) Hypernatremia (71) DM (diabetes mellitus) (72) Anemia (73) GI bleeding (74) DM (diabetes mellitus) (75) Acute hyperglycemia (76) Anemia (77) Hyponatremia (78) CKD (chronic kidney disease), stage III (79) Renal insufficiency (80) Dehydration (81) Coronary heart disease (82) Psychiatric disturbance (83) Pulmonary HTN (84) Acute on chronic renal failure (85) CAD (coronary artery disease) (86) HTN (hypertension) (87) Anemia in chronic kidney disease (88) Anemia in chronic kidney disease (89) Iron deficiency anemia Review of Systems Psychiatric: Reports: prior hx, anxiety, depressed feelings, emotional problems Physical Exam General Appearance: no apparent distress, alert Neurologic: oriented x 3, responsive, depressed affect Last 24 Hour Vital Signs Date Time Temp Pulse Resp B/P (MAP) Pulse Ox O2 Delivery O2 Flow Rate FiO2 11/01/17 12:00 98.3 78 20 136/72 99 Room Air 98.3 78 11/01/17 08:59 69 135/68 11/01/17 08:58 69 135/68 11/01/17 08:00 97.1 69 19 135/68 97 Room Air 97.1 69 11/01/17 03:49 98.2 67 20 131/77 99 98.2 11/01/17 00:15 97.0 66 20 134/72 99 97.0 11/01/17 00:00 97.6 59 20 159/79 99 97.6 10/31/17 22:02 62 133/75 10/31/17 20:00 97.7 62 20 133/75 98 97.7 10/31/17 16:00 97.5 83 19 129/64 97 Room Air 97.5 Intake and Output 10/31/17 11/01/17 19:00 07:00 Intake Total 520 ml 920 ml Output Total 1000 ml 420 ml Balance -480 ml 500 ml Intake Oral 520 ml 320 ml IV Total 600 ml Output Urine Total 1000 ml 420 ml # Bowel Movements 1 1 Laboratory Tests Test 11/01/17 12:00 11/01/17 12:20 Random Vancomycin Level 17.3 ug/mL White Blood Count 7.1 K/UL (4.8-10.8) Red Blood Count 4.28 M/UL (4.70-6.10) L Hemoglobin 13.7 G/DL (14.2-18.0) L Hematocrit 40.5 % (42.0-52.0) L Mean Corpuscular Volume 95 FL (80-99) Mean Corpuscular Hemoglobin 32.0 PG (27.0-31.0) H Mean Corpuscular Hemoglobin Concent 33.8 G/DL (32.0-36.0) Red Cell Distribution Width 16.7 % (11.6-14.8) H Platelet Count 239 K/UL (150-450) Mean Platelet Volume 6.6 FL (6.5-10.1) Neutrophils (%) (Auto) 59.7 % (45.0-75.0) Lymphocytes (%) (Auto) 29.8 % (20.0-45.0) Monocytes (%) (Auto) 6.2 % (1.0-10.0) Eosinophils (%) (Auto) 3.5 % (0.0-3.0) H Basophils (%) (Auto) 0.8 % (0.0-2.0) Sodium Level 138 MMOL/L (136-145) Potassium Level 3.9 MMOL/L (3.5-5.1) Chloride Level 110 MMOL/L (98-107) H Carbon Dioxide Level 13 MMOL/L (21-32) L Anion Gap 15 mmol/L (5-15) Blood Urea Nitrogen 70 mg/dL (7-18) H Creatinine 5.2 MG/DL (0.55-1.30) H Estimat Glomerular Filtration Rate 11.3 mL/min (>60) Glucose Level 221 MG/DL (74-106) H Calcium Level 8.7 MG/DL (8.5-10.1) Height (Feet): 5 Height (Inches): 10.00 Weight (Pounds): 170 Medications Current Medications Medications (Trade) Dose Ordered Sig/Dunia Route PRN Reason Start Time Stop Time Status Last Admin Dose Admin Acetaminophen (Tylenol) 650 mg Q4H PRN ORAL fever 10/29/17 22:00 11/28/17 21:59 Albuterol/ Ipratropium (Albuterol/ Ipratropium) 3 ml EVERY 4 HOURS PRN HHN Shortness of Breath 10/29/17 22:00 11/03/17 21:59 Amlodipine Besylate (Norvasc) 5 mg DAILY ORAL 10/30/17 09:00 11/29/17 08:59 11/01/17 08:59 Atorvastatin Calcium (Lipitor) 10 mg BEDTIME ORAL 10/30/17 21:00 11/29/17 20:59 10/31/17 22:02 Dextrose (Dextrose 50%) STAT PRN IV Hypoglycemia 10/29/17 22:00 11/28/17 21:59 Dextrose (Dextrose 50%) 25 ml STAT PRN IV Hypoglycemia 10/30/17 12:15 11/29/17 12:14 10/30/17 17:07 Dextrose (Dextrose 50%) 50 ml STAT PRN IV Hypoglycemia 10/30/17 12:15 11/29/17 12:14 Docusate Sodium (Colace) 100 mg TWICE A DAY ORAL 10/30/17 18:00 11/29/17 17:59 11/01/17 08:59 Duloxetine HCl (Cymbalta) 30 mg DAILY ORAL 10/30/17 09:00 11/29/17 08:59 11/01/17 08:59 Heparin Sodium (Porcine) (Heparin 5000 units/ml) 5,000 units EVERY 12 HOURS SUBQ 10/30/17 09:00 11/29/17 08:59 11/01/17 09:02 Insulin Aspart (NovoLOG) BEFORE MEALS AND HS SUBQ 10/30/17 06:30 11/29/17 06:29 11/01/17 12:27 Insulin Aspart (NovoLOG) 6 units NOVOTIAC SUBQ 10/30/17 12:15 11/29/17 12:14 11/01/17 12:27 Insulin Detemir (Levemir) 12 units BID SUBQ 10/30/17 18:00 11/29/17 08:59 11/01/17 09:04 Metoclopramide HCl (Reglan) 5 mg BEFORE MEALS ORAL 10/30/17 16:30 11/29/17 16:29 11/01/17 12:22 Metoprolol Succinate (Toprol XL) 50 mg Q12HR ORAL 10/30/17 09:00 11/29/17 08:59 11/01/17 08:58 Morphine Sulfate (Morphine Sulfate) 2 mg Q4H PRN IVP moderate pain scale (4 to 6) 10/29/17 23:00 11/05/17 22:59 Nitroglycerin (Ntg) 0.4 mg Q5M PRN SL Prn Chest Pain 10/29/17 22:00 11/28/17 21:59 Ondansetron HCl (Zofran) 4 mg Q6H PRN IVP Nausea & Vomiting 10/29/17 22:00 11/28/17 21:59 Polyethylene Glycol (Miralax) 17 gm DAILYPRN PRN ORAL Constipation 10/29/17 22:00 11/28/17 21:59 Sevelamer Carbonate (Renvela) 800 mg THREE TIMES A DAY ORAL 10/30/17 09:00 11/29/17 08:59 11/01/17 12:22 Sodium Chloride 1,000 ml @ 75 mls/hr [id number] IV 10/30/17 16:00 11/29/17 15:59 11/01/17 08:59 Sodium Citrate (Bicitra) 30 ml EVERY 6 HOURS ORAL 10/30/17 18:00 11/29/17 17:59 11/01/17 12:22 Temazepam (Restoril) 15 mg HSPRN PRN ORAL Insomnia 10/29/17 22:00 11/05/17 21:59 Assessment/Plan Status: stable Assessment/Plan mdd schizophrenia encephalopathy -cont current meds -cont Fatmata Kang M.D. Nov 01, 2017 15:04
--- NOTE | 2017-11-01 16:35 | Nephrology Progress Note ---
Assessment/Plan Problem List: (1) Acute on chronic renal failure (2) Anemia in chronic kidney disease (3) Hyperglycemia due to type 2 diabetes mellitus Assessment (1) CKD (chronic kidney disease), stage 5, superimposed acute- Cr ethan since last admit- has metabolic acidosis Cr down to 5.2 (2) Dehydration- Partly due to hyperglycemia (3) Hyperglycemia due to type 2 diabetes mellitus (4) BPH (benign prostatic hypertrophy) (5) Nephropathy, diabetic (6) History of simultaneous kidney and pancreas transplant (7) UTI (urinary tract infection) (8) Anemia of CKD (9) HyperParathyroidism . Plan cR LOWERING Has suprapubic cath slow hydrate re address dialysis avoid nephrotoxics BP and BS control- monitor renal parameters Subjective ROS Limited/Unobtainable: No Constitutional: Reports: malaise Objective Objective Last 24 Hour Vital Signs Date Time Temp Pulse Resp B/P (MAP) Pulse Ox O2 Delivery O2 Flow Rate FiO2 11/01/17 15:51 97.0 76 19 111/57 99 Room Air 97.0 76 11/01/17 12:00 98.3 78 20 136/72 99 Room Air 98.3 78 11/01/17 08:59 69 135/68 11/01/17 08:58 69 135/68 11/01/17 08:00 97.1 69 19 135/68 97 Room Air 97.1 69 11/01/17 03:49 98.2 67 20 131/77 99 98.2 11/01/17 00:15 97.0 66 20 134/72 99 97.0 11/01/17 00:00 97.6 59 20 159/79 99 97.6 10/31/17 22:02 62 133/75 10/31/17 20:00 97.7 62 20 133/75 98 97.7 Intake and Output 10/31/17 11/01/17 19:00 07:00 Intake Total 520 ml 920 ml Output Total 1000 ml 420 ml Balance -480 ml 500 ml Intake Oral 520 ml 320 ml IV Total 600 ml Output Urine Total 1000 ml 420 ml # Bowel Movements 1 1 Laboratory Tests 11/01/17 12:00: Random Vancomycin Level 17.3 11/01/17 12:20: White Blood Count 7.1, Red Blood Count 4.28L, Hemoglobin 13.7L, Hematocrit 40.5L , Mean Corpuscular Volume 95, Mean Corpuscular Hemoglobin 32.0H, Mean Corpuscular Hemoglobin Concent 33.8, Red Cell Distribution Width 16.7H, Platelet Count 239, Mean Platelet Volume 6.6, Neutrophils (%) (Auto) 59.7, Lymphocytes (%) (Auto) 29.8, Monocytes (%) (Auto) 6.2, Eosinophils (%) (Auto) 3.5H, Basophils (%) (Auto) 0.8, Sodium Level 138, Potassium Level 3.9, Chloride Level 110H, Carbon Dioxide Level 13L, Anion Gap 15, Blood Urea Nitrogen 70H, Creatinine 5.2H, Estimat Glomerular Filtration Rate 11.3, Glucose Level 221H, Calcium Level 8.7 Height (Feet): 5 Height (Inches): 10.00 Weight (Pounds): 170 General Appearance: no apparent distress Cardiovascular: normal rate Respiratory/Chest: decreased breath sounds Abdomen: soft BERT ALONSO Nov 01, 2017 16:35
--- NOTE | 2017-11-01 21:33 | General Progress Note ---
Assessment/Plan Status: stable Assessment/Plan mdd encephalopathy schizophrenia -Cymbalta -Zyprexa prn Subjective Date patient seen: Nov 01, 2017 Neurologic/Psychiatric: Reports: anxiety, depressed, emotional problems Allergies: Coded Allergies: CEFEPIME (Verified Allergy, Intermediate, Rash, 01/23/13) Objective Last 24 Hour Vital Signs Date Time Temp Pulse Resp B/P (MAP) Pulse Ox O2 Delivery O2 Flow Rate FiO2 11/01/17 19:58 98.1 76 17 115/59 95 98.1 11/01/17 15:51 97.0 76 19 111/57 99 Room Air 97.0 76 11/01/17 12:00 98.3 78 20 136/72 99 Room Air 98.3 78 11/01/17 08:59 69 135/68 11/01/17 08:58 69 135/68 11/01/17 08:00 97.1 69 19 135/68 97 Room Air 97.1 69 11/01/17 03:49 98.2 67 20 131/77 99 98.2 11/01/17 00:15 97.0 66 20 134/72 99 97.0 11/01/17 00:00 97.6 59 20 159/79 99 97.6 10/31/17 22:02 62 133/75 Intake and Output 10/31/17 11/01/17 19:00 07:00 Intake Total 520 ml 920 ml Output Total 1000 ml 420 ml Balance -480 ml 500 ml Intake Oral 520 ml 320 ml IV Total 600 ml Output Urine Total 1000 ml 420 ml # Bowel Movements 1 1 Laboratory Tests 11/01/17 12:00: Random Vancomycin Level 17.3 11/01/17 12:20: White Blood Count 7.1, Red Blood Count 4.28L, Hemoglobin 13.7L, Hematocrit 40.5L , Mean Corpuscular Volume 95, Mean Corpuscular Hemoglobin 32.0H, Mean Corpuscular Hemoglobin Concent 33.8, Red Cell Distribution Width 16.7H, Platelet Count 239, Mean Platelet Volume 6.6, Neutrophils (%) (Auto) 59.7, Lymphocytes (%) (Auto) 29.8, Monocytes (%) (Auto) 6.2, Eosinophils (%) (Auto) 3.5H, Basophils (%) (Auto) 0.8, Sodium Level 138, Potassium Level 3.9, Chloride Level 110H, Carbon Dioxide Level 13L, Anion Gap 15, Blood Urea Nitrogen 70H, Creatinine 5.2H, Estimat Glomerular Filtration Rate 11.3, Glucose Level 221H, Calcium Level 8.7 Height (Feet): 5 Height (Inches): 10.00 Weight (Pounds): 170 General Appearance: no apparent distress, alert, confused - orieted to self and place memory impairment Fatmata Lu M.D. Nov 01, 2017 21:33
--- NOTE | 2017-11-01 21:39 | Psych Consult Progress Note ---
Psych Consult Progress Note Consult 10/30/17 mdd encephalopathy schizophrenia -Cymbalta -Zyprexa prn Vital Signs Last 24 Hour Vital Signs Date Time Temp Pulse Resp B/P (MAP) Pulse Ox O2 Delivery O2 Flow Rate FiO2 11/01/17 19:58 98.1 76 17 115/59 95 98.1 11/01/17 15:51 97.0 76 19 111/57 99 Room Air 97.0 76 11/01/17 12:00 98.3 78 20 136/72 99 Room Air 98.3 78 11/01/17 08:59 69 135/68 11/01/17 08:58 69 135/68 11/01/17 08:00 97.1 69 19 135/68 97 Room Air 97.1 69 11/01/17 03:49 98.2 67 20 131/77 99 98.2 11/01/17 00:15 97.0 66 20 134/72 99 97.0 11/01/17 00:00 97.6 59 20 159/79 99 97.6 10/31/17 22:02 62 133/75 Labs Laboratory Tests Test 11/01/17 12:00 11/01/17 12:20 Random Vancomycin Level 17.3 ug/mL White Blood Count 7.1 K/UL (4.8-10.8) Red Blood Count 4.28 M/UL (4.70-6.10) L Hemoglobin 13.7 G/DL (14.2-18.0) L Hematocrit 40.5 % (42.0-52.0) L Mean Corpuscular Volume 95 FL (80-99) Mean Corpuscular Hemoglobin 32.0 PG (27.0-31.0) H Mean Corpuscular Hemoglobin Concent 33.8 G/DL (32.0-36.0) Red Cell Distribution Width 16.7 % (11.6-14.8) H Platelet Count 239 K/UL (150-450) Mean Platelet Volume 6.6 FL (6.5-10.1) Neutrophils (%) (Auto) 59.7 % (45.0-75.0) Lymphocytes (%) (Auto) 29.8 % (20.0-45.0) Monocytes (%) (Auto) 6.2 % (1.0-10.0) Eosinophils (%) (Auto) 3.5 % (0.0-3.0) H Basophils (%) (Auto) 0.8 % (0.0-2.0) Sodium Level 138 MMOL/L (136-145) Potassium Level 3.9 MMOL/L (3.5-5.1) Chloride Level 110 MMOL/L (98-107) H Carbon Dioxide Level 13 MMOL/L (21-32) L Anion Gap 15 mmol/L (5-15) Blood Urea Nitrogen 70 mg/dL (7-18) H Creatinine 5.2 MG/DL (0.55-1.30) H Estimat Glomerular Filtration Rate 11.3 mL/min (>60) Glucose Level 221 MG/DL (74-106) H Calcium Level 8.7 MG/DL (8.5-10.1) Medications Current Medications Medications (Trade) Dose Ordered Sig/Dunia Route PRN Reason Start Time Stop Time Status Last Admin Dose Admin Acetaminophen (Tylenol) 650 mg Q4H PRN ORAL fever 10/29/17 22:00 11/28/17 21:59 Albuterol/ Ipratropium (Albuterol/ Ipratropium) 3 ml EVERY 4 HOURS PRN HHN Shortness of Breath 10/29/17 22:00 11/03/17 21:59 Amlodipine Besylate (Norvasc) 5 mg DAILY ORAL 10/30/17 09:00 11/29/17 08:59 11/01/17 08:59 Atorvastatin Calcium (Lipitor) 10 mg BEDTIME ORAL 10/30/17 21:00 11/29/17 20:59 10/31/17 22:02 Dextrose (Dextrose 50%) STAT PRN IV Hypoglycemia 10/29/17 22:00 11/28/17 21:59 Dextrose (Dextrose 50%) 25 ml STAT PRN IV Hypoglycemia 10/30/17 12:15 11/29/17 12:14 10/30/17 17:07 Dextrose (Dextrose 50%) 50 ml STAT PRN IV Hypoglycemia 10/30/17 12:15 11/29/17 12:14 Docusate Sodium (Colace) 100 mg TWICE A DAY ORAL 10/30/17 18:00 11/29/17 17:59 11/01/17 08:59 Duloxetine HCl (Cymbalta) 30 mg DAILY ORAL 10/30/17 09:00 11/29/17 08:59 11/01/17 08:59 Heparin Sodium (Porcine) (Heparin 5000 units/ml) 5,000 units EVERY 12 HOURS SUBQ 10/30/17 09:00 11/29/17 08:59 11/01/17 09:02 Insulin Aspart (NovoLOG) BEFORE MEALS AND HS SUBQ 10/30/17 06:30 11/29/17 06:29 11/01/17 12:27 Insulin Aspart (NovoLOG) 6 units NOVOTIAC SUBQ 10/30/17 12:15 11/29/17 12:14 11/01/17 12:27 Insulin Detemir (Levemir) 12 units BID SUBQ 10/30/17 18:00 11/29/17 08:59 11/01/17 18:09 Metoclopramide HCl (Reglan) 5 mg BEFORE MEALS ORAL 10/30/17 16:30 11/29/17 16:29 11/01/17 16:56 Metoprolol Succinate (Toprol XL) 50 mg Q12HR ORAL 10/30/17 09:00 11/29/17 08:59 11/01/17 08:58 Morphine Sulfate (Morphine Sulfate) 2 mg Q4H PRN IVP moderate pain scale (4 to 6) 10/29/17 23:00 11/05/17 22:59 Nitroglycerin (Ntg) 0.4 mg Q5M PRN SL Prn Chest Pain 10/29/17 22:00 11/28/17 21:59 Ondansetron HCl (Zofran) 4 mg Q6H PRN IVP Nausea & Vomiting 10/29/17 22:00 11/28/17 21:59 Polyethylene Glycol (Miralax) 17 gm DAILYPRN PRN ORAL Constipation 10/29/17 22:00 11/28/17 21:59 Sevelamer Carbonate (Renvela) 800 mg THREE TIMES A DAY ORAL 10/30/17 09:00 11/29/17 08:59 11/01/17 12:22 Sodium Chloride 1,000 ml @ 75 mls/hr [id number] IV 10/30/17 16:00 11/29/17 15:59 11/01/17 08:59 Sodium Citrate (Bicitra) 30 ml EVERY 6 HOURS ORAL 10/30/17 18:00 11/29/17 17:59 11/01/17 12:22 Temazepam (Restoril) 15 mg HSPRN PRN ORAL Insomnia 10/29/17 22:00 11/05/17 21:59 Problems: (1) DM (diabetes mellitus) Status: Acute Fatmata Lu M.D. Nov 01, 2017 21:39
[2017-11-01] MEDS ORDERED: OLANZapine 2.5mg tab ORAL PRN (21:45)
[2017-11-02 00:28] VITALS: BP 109/56
[2017-11-02 04:15] VITALS: BP 111/57
[2017-11-02] MEDS: Sodium Citrate 30ml ORAL SCH ×4 (06:05→17:15)
[2017-11-02] MEDS: NovoLOG Insulin Flexpen SUBQ SCH ×6 (06:14→17:21)
[2017-11-02 07:29] LABS: BASOPHILS % (AUTO) 0.5 % (0.0-2.0); EOSINOPHILS % (AUTO) 4.4 % (0.0-3.0); HEMATOCRIT 37.3 % (42.0-52.0); HEMOGLOBIN 12.8 G/DL (14.2-18.0); LYMPHOCYTES % (AUTO) 28.6 % (20.0-45.0); MEAN CORPUSCULAR VOLUME 95 FL (80-99); NEUTROPHILS % (AUTO) 58.6 % (45.0-75.0); PLATELET COUNT 225 K/UL (150-450); RED BLOOD COUNT 3.93 M/UL (4.70-6.10); RED CELL DISTRIBUTION WIDTH 17.3 % (11.6-14.8); WHITE BLOOD COUNT 7.1 K/UL (4.8-10.8)
[2017-11-02 07:49] LABS: ANION GAP 14 mmol/L (5-15); BLOOD UREA NITROGEN 64 mg/dL (7-18); CALCIUM 8.7 MG/DL (8.5-10.1); CARBON DIOXIDE 13 MMOL/L (21-32); CHLORIDE 109 MMOL/L (98-107); SODIUM 136 MMOL/L (136-145)
[2017-11-02 08:00] VITALS: BP 131/62
[2017-11-02] MEDS: Renvela 800mg Pkt ORAL SCH ×3 (09:08→17:15)
[2017-11-02] MEDS: DULoxetine 30mg cap ORAL SCH (09:09)
[2017-11-02] MEDS: Heparin 5000 units/ml inj SUBQ SCH (09:09)
[2017-11-02] MEDS: Docusate 100mg cap ORAL SCH ×2 (09:10→17:15)
[2017-11-02] MEDS: Metoprolol Succinate XL 50mg tab ORAL SCH (09:11)
[2017-11-02] MEDS: Levemir Flexpen SUBQ SCH ×2 (09:19→17:21)
[2017-11-02] MEDS ORDERED: 1/2 NS 1000ml IV ONE (09:24)
[2017-11-02 12:00] VITALS: BP 145/87
--- NOTE | 2017-11-02 14:08 | Pulmonology Progress Note ---
Assessment/Plan Problems: (1) Uncontrolled diabetes mellitus (2) Pulmonary HTN (3) ATN (acute tubular necrosis) (4) Coronary heart disease (5) Psychiatric disturbance (6) CAD (coronary artery disease) (7) HTN (hypertension) (8) Renal transplant recipient Assessment/Plan BS fluctuating a lot continue 1/2 NS 75 cc/hourfeeling betteriv fluids sliding scale continue short and long acting insulin titrate fio2 to sat of 925 psych f/u monitor BP avoid nephrotxic check electrolytes. BUN/ creatinine coming down. Subjective ROS Limited/Unobtainable: No Constitutional: Reports: no symptoms Respiratory: Reports: no symptoms Allergies: Coded Allergies: CEFEPIME (Verified Allergy, Intermediate, Rash, 01/23/13) Objective Last 24 Hour Vital Signs Date Time Temp Pulse Resp B/P (MAP) Pulse Ox O2 Delivery O2 Flow Rate FiO2 11/02/17 12:00 97.1 85 20 145/87 95 Room Air 97.1 85 11/02/17 09:11 85 131/62 11/02/17 09:10 85 131/62 11/02/17 08:00 97.1 85 18 131/62 99 Room Air 97.1 85 11/02/17 04:15 98.1 66 18 111/57 97 98.1 11/02/17 00:28 98.2 70 18 109/56 95 98.2 11/01/17 21:00 76 115/59 11/01/17 19:58 98.1 76 17 115/59 95 98.1 11/01/17 15:51 97.0 76 19 111/57 99 Room Air 97.0 76 Intake and Output 11/01/17 11/02/17 19:00 07:00 Intake Total 1860 ml 1305 ml Output Total 1600 ml 850 ml Balance 260 ml 455 ml Intake Oral 960 ml 480 ml IV Total 900 ml 825 ml Output Urine Total 1600 ml 850 ml # Voids 1 # Bowel Movements 2 General Appearance: WD/WN HEENT: normocephalic, atraumatic Respiratory/Chest: chest wall non-tender, lungs clear Cardiovascular: normal peripheral pulses, normal rate Abdomen: normal bowel sounds, soft, non tender Genitourinary: normal external genitalia Extremities: no cyanosis Skin: no rash Laboratory Tests 11/02/17 06:15: White Blood Count 7.1, Red Blood Count 3.93L, Hemoglobin 12.8L, Hematocrit 37.3L , Mean Corpuscular Volume 95, Mean Corpuscular Hemoglobin 32.5H, Mean Corpuscular Hemoglobin Concent 34.3, Red Cell Distribution Width 17.3H, Platelet Count 225, Mean Platelet Volume 6.6, Neutrophils (%) (Auto) 58.6, Lymphocytes (%) (Auto) 28.6, Monocytes (%) (Auto) 8.0, Eosinophils (%) (Auto) 4.4H, Basophils (%) (Auto) 0.5, Sodium Level 136, Potassium Level 4.0, Chloride Level 109H, Carbon Dioxide Level 13L, Anion Gap 14, Blood Urea Nitrogen 64H, Creatinine 5.0H, Estimat Glomerular Filtration Rate 11.8, Glucose Level 226H, Calcium Level 8.7 Current Medications Medications (Trade) Dose Ordered Sig/Dunia Route PRN Reason Start Time Stop Time Status Last Admin Dose Admin Acetaminophen (Tylenol) 650 mg Q4H PRN ORAL fever 10/29/17 22:00 11/28/17 21:59 Albuterol/ Ipratropium (Albuterol/ Ipratropium) 3 ml EVERY 4 HOURS PRN HHN Shortness of Breath 10/29/17 22:00 11/03/17 21:59 Amlodipine Besylate (Norvasc) 5 mg DAILY ORAL 10/30/17 09:00 11/29/17 08:59 11/02/17 09:10 Atorvastatin Calcium (Lipitor) 10 mg BEDTIME ORAL 10/30/17 21:00 11/29/17 20:59 10/31/17 22:02 Dextrose (Dextrose 50%) 25 ml STAT PRN IV Hypoglycemia 10/30/17 12:15 11/29/17 12:14 10/30/17 17:07 Dextrose (Dextrose 50%) 50 ml STAT PRN IV Hypoglycemia 10/30/17 12:15 11/29/17 12:14 Docusate Sodium (Colace) 100 mg TWICE A DAY ORAL 10/30/17 18:00 11/29/17 17:59 11/02/17 09:10 Duloxetine HCl (Cymbalta) 30 mg DAILY ORAL 10/30/17 09:00 11/29/17 08:59 11/02/17 09:09 Heparin Sodium (Porcine) (Heparin 5000 units/ml) 5,000 units EVERY 12 HOURS SUBQ 10/30/17 09:00 11/29/17 08:59 11/02/17 09:09 Insulin Aspart (NovoLOG) BEFORE MEALS AND HS SUBQ 10/30/17 06:30 11/29/17 06:29 11/02/17 12:47 Insulin Aspart (NovoLOG) 6 units NOVOTIAC SUBQ 10/30/17 12:15 11/29/17 12:14 11/02/17 12:49 Insulin Detemir (Levemir) 12 units BID SUBQ 10/30/17 18:00 11/29/17 08:59 11/02/17 09:19 Metoclopramide HCl (Reglan) 5 mg BEFORE MEALS ORAL 10/30/17 16:30 11/29/17 16:29 11/02/17 12:45 Metoprolol Succinate (Toprol XL) 50 mg Q12HR ORAL 10/30/17 09:00 11/29/17 08:59 11/02/17 09:11 Morphine Sulfate (Morphine Sulfate) 2 mg Q4H PRN IVP moderate pain scale (4 to 6) 10/29/17 23:00 11/05/17 22:59 Nitroglycerin (Ntg) 0.4 mg Q5M PRN SL Prn Chest Pain 10/29/17 22:00 11/28/17 21:59 Olanzapine (ZyPREXA) 2.5 mg BEDTIME PRN ORAL For Anxiety 11/01/17 21:45 12/01/17 21:44 Ondansetron HCl (Zofran) 4 mg Q6H PRN IVP Nausea & Vomiting 10/29/17 22:00 11/28/17 21:59 Polyethylene Glycol (Miralax) 17 gm DAILYPRN PRN ORAL Constipation 10/29/17 22:00 11/28/17 21:59 Sevelamer Carbonate (Renvela) 800 mg THREE TIMES A DAY ORAL 10/30/17 09:00 11/29/17 08:59 11/02/17 12:45 Sodium Chloride 1,000 ml @ 75 mls/hr [id number] IV 10/30/17 16:00 11/29/17 15:59 11/02/17 09:23 Sodium Citrate (Bicitra) 30 ml EVERY 6 HOURS ORAL 10/30/17 18:00 11/29/17 17:59 11/02/17 12:45 Temazepam (Restoril) 15 mg HSPRN PRN ORAL Insomnia 10/29/17 22:00 11/05/17 21:59 Esdras Delgado MD Nov 02, 2017 14:08
--- NOTE | 2017-11-02 14:45 | Nephrology Progress Note ---
Assessment/Plan Problem List: (1) Acute on chronic renal failure (2) Anemia in chronic kidney disease (3) Hyperglycemia due to type 2 diabetes mellitus Assessment (1) CKD (chronic kidney disease), stage 5, superimposed acute- Cr ethan since last admit- has metabolic acidosis Cr down to 5.0 (2) Dehydration- Partly due to hyperglycemia (3) Hyperglycemia due to type 2 diabetes mellitus (4) BPH (benign prostatic hypertrophy) (5) Nephropathy, diabetic (6) History of simultaneous kidney and pancreas transplant (7) UTI (urinary tract infection) (8) Anemia of CKD (9) HyperParathyroidism . Plan Cr LOWERING Has suprapubic cath slow hydrate re address dialysis avoid nephrotoxics BP and BS control- monitor renal parameters Subjective ROS Limited/Unobtainable: No Objective Objective Last 24 Hour Vital Signs Date Time Temp Pulse Resp B/P (MAP) Pulse Ox O2 Delivery O2 Flow Rate FiO2 11/02/17 12:00 97.1 85 20 145/87 95 Room Air 97.1 85 11/02/17 09:11 85 131/62 11/02/17 09:10 85 131/62 11/02/17 08:00 97.1 85 18 131/62 99 Room Air 97.1 85 11/02/17 04:15 98.1 66 18 111/57 97 98.1 11/02/17 00:28 98.2 70 18 109/56 95 98.2 11/01/17 21:00 76 115/59 11/01/17 19:58 98.1 76 17 115/59 95 98.1 11/01/17 15:51 97.0 76 19 111/57 99 Room Air 97.0 76 Intake and Output 11/01/17 11/02/17 19:00 07:00 Intake Total 1860 ml 1305 ml Output Total 1600 ml 850 ml Balance 260 ml 455 ml Intake Oral 960 ml 480 ml IV Total 900 ml 825 ml Output Urine Total 1600 ml 850 ml # Voids 1 # Bowel Movements 2 Laboratory Tests 11/02/17 06:15: White Blood Count 7.1, Red Blood Count 3.93L, Hemoglobin 12.8L, Hematocrit 37.3L , Mean Corpuscular Volume 95, Mean Corpuscular Hemoglobin 32.5H, Mean Corpuscular Hemoglobin Concent 34.3, Red Cell Distribution Width 17.3H, Platelet Count 225, Mean Platelet Volume 6.6, Neutrophils (%) (Auto) 58.6, Lymphocytes (%) (Auto) 28.6, Monocytes (%) (Auto) 8.0, Eosinophils (%) (Auto) 4.4H, Basophils (%) (Auto) 0.5, Sodium Level 136, Potassium Level 4.0, Chloride Level 109H, Carbon Dioxide Level 13L, Anion Gap 14, Blood Urea Nitrogen 64H, Creatinine 5.0H, Estimat Glomerular Filtration Rate 11.8, Glucose Level 226H, Calcium Level 8.7 Height (Feet): 5 Height (Inches): 10.00 Weight (Pounds): 170 General Appearance: no apparent distress Cardiovascular: normal rate Respiratory/Chest: decreased breath sounds Abdomen: soft Genitourinary/Rectal: other - supra pubic cath BERT ALONSO Nov 02, 2017 14:45
[2017-11-02] MEDS ORDERED: NOVOLOG100 UNITS1 SUBQ (15:05)
[2017-11-02] MEDS ORDERED: LEVEMIR FL100 UNIT/1 SUBQ (15:05)
--- NOTE | 2017-11-02 15:06 | Internal Med Progress Note ---
Subjective Date of Service: Nov 02, 2017 Physician Name Dee Maher Attending Physician Christopher Rosado MD Current Medications Medications (Trade) Dose Ordered Sig/Dunia Route PRN Reason Start Time Stop Time Status Last Admin Dose Admin Acetaminophen (Tylenol) 650 mg Q4H PRN ORAL fever 10/29/17 22:00 11/28/17 21:59 Albuterol/ Ipratropium (Albuterol/ Ipratropium) 3 ml EVERY 4 HOURS PRN HHN Shortness of Breath 10/29/17 22:00 11/03/17 21:59 Amlodipine Besylate (Norvasc) 5 mg DAILY ORAL 10/30/17 09:00 11/29/17 08:59 11/02/17 09:10 Atorvastatin Calcium (Lipitor) 10 mg BEDTIME ORAL 10/30/17 21:00 11/29/17 20:59 10/31/17 22:02 Dextrose (Dextrose 50%) 25 ml STAT PRN IV Hypoglycemia 10/30/17 12:15 11/29/17 12:14 10/30/17 17:07 Dextrose (Dextrose 50%) 50 ml STAT PRN IV Hypoglycemia 10/30/17 12:15 11/29/17 12:14 Docusate Sodium (Colace) 100 mg TWICE A DAY ORAL 10/30/17 18:00 11/29/17 17:59 11/02/17 09:10 Duloxetine HCl (Cymbalta) 30 mg DAILY ORAL 10/30/17 09:00 11/29/17 08:59 11/02/17 09:09 Heparin Sodium (Porcine) (Heparin 5000 units/ml) 5,000 units EVERY 12 HOURS SUBQ 10/30/17 09:00 11/29/17 08:59 11/02/17 09:09 Insulin Aspart (NovoLOG) BEFORE MEALS AND HS SUBQ 10/30/17 06:30 11/29/17 06:29 11/02/17 12:47 Insulin Aspart (NovoLOG) 6 units NOVOTIAC SUBQ 10/30/17 12:15 11/29/17 12:14 11/02/17 12:49 Insulin Detemir (Levemir) 12 units BID SUBQ 10/30/17 18:00 11/29/17 08:59 11/02/17 09:19 Metoclopramide HCl (Reglan) 5 mg BEFORE MEALS ORAL 10/30/17 16:30 11/29/17 16:29 11/02/17 12:45 Metoprolol Succinate (Toprol XL) 50 mg Q12HR ORAL 10/30/17 09:00 11/29/17 08:59 11/02/17 09:11 Morphine Sulfate (Morphine Sulfate) 2 mg Q4H PRN IVP moderate pain scale (4 to 6) 10/29/17 23:00 11/05/17 22:59 Nitroglycerin (Ntg) 0.4 mg Q5M PRN SL Prn Chest Pain 10/29/17 22:00 11/28/17 21:59 Olanzapine (ZyPREXA) 2.5 mg BEDTIME PRN ORAL For Anxiety 11/01/17 21:45 12/01/17 21:44 Ondansetron HCl (Zofran) 4 mg Q6H PRN IVP Nausea & Vomiting 10/29/17 22:00 11/28/17 21:59 Polyethylene Glycol (Miralax) 17 gm DAILYPRN PRN ORAL Constipation 10/29/17 22:00 11/28/17 21:59 Sevelamer Carbonate (Renvela) 800 mg THREE TIMES A DAY ORAL 10/30/17 09:00 11/29/17 08:59 11/02/17 12:45 Sodium Chloride 1,000 ml @ 75 mls/hr [id number] IV 10/30/17 16:00 11/29/17 15:59 11/02/17 09:23 Sodium Citrate (Bicitra) 30 ml EVERY 6 HOURS ORAL 10/30/17 18:00 11/29/17 17:59 11/02/17 12:45 Temazepam (Restoril) 15 mg HSPRN PRN ORAL Insomnia 10/29/17 22:00 11/05/17 21:59 Allergies: Coded Allergies: CEFEPIME (Verified Allergy, Intermediate, Rash, 01/23/13) ROS Limited/Unobtainable: No Constitutional: Reports: no symptoms HEENT: Reports: no symptoms Cardiovascular: Reports: no symptoms Respiratory: Reports: no symptoms Gastrointestinal/Abdominal: Reports: no symptoms Genitourinary: Reports: no symptoms Neurologic/Psychiatric: Reports: no symptoms Subjective 62 YO M admitted with hyperglycemia. Cover for Int Pierre - Dr Rosado Objective Last Vital Signs Date Time Temp Pulse Resp B/P (MAP) Pulse Ox O2 Delivery O2 Flow Rate FiO2 11/02/17 12:00 97.1 85 20 145/87 95 Room Air 97.1 85 Laboratory Tests Test 11/02/17 06:15 White Blood Count 7.1 K/UL (4.8-10.8) Red Blood Count 3.93 M/UL (4.70-6.10) L Hemoglobin 12.8 G/DL (14.2-18.0) L Hematocrit 37.3 % (42.0-52.0) L Mean Corpuscular Volume 95 FL (80-99) Mean Corpuscular Hemoglobin 32.5 PG (27.0-31.0) H Mean Corpuscular Hemoglobin Concent 34.3 G/DL (32.0-36.0) Red Cell Distribution Width 17.3 % (11.6-14.8) H Platelet Count 225 K/UL (150-450) Mean Platelet Volume 6.6 FL (6.5-10.1) Neutrophils (%) (Auto) 58.6 % (45.0-75.0) Lymphocytes (%) (Auto) 28.6 % (20.0-45.0) Monocytes (%) (Auto) 8.0 % (1.0-10.0) Eosinophils (%) (Auto) 4.4 % (0.0-3.0) H Basophils (%) (Auto) 0.5 % (0.0-2.0) Sodium Level 136 MMOL/L (136-145) Potassium Level 4.0 MMOL/L (3.5-5.1) Chloride Level 109 MMOL/L (98-107) H Carbon Dioxide Level 13 MMOL/L (21-32) L Anion Gap 14 mmol/L (5-15) Blood Urea Nitrogen 64 mg/dL (7-18) H Creatinine 5.0 MG/DL (0.55-1.30) H Estimat Glomerular Filtration Rate 11.8 mL/min (>60) Glucose Level 226 MG/DL (74-106) H Calcium Level 8.7 MG/DL (8.5-10.1) Intake and Output 11/01/17 11/02/17 19:00 07:00 Intake Total 1860 ml 1305 ml Output Total 1600 ml 850 ml Balance 260 ml 455 ml Intake Oral 960 ml 480 ml IV Total 900 ml 825 ml Output Urine Total 1600 ml 850 ml # Voids 1 # Bowel Movements 2 Objective General Appearance: WD/WN, no apparent distress, alert EENT: PERRL/EOMI, normal ENT inspection Neck: non-tender, normal alignment, supple, normal inspection Cardiovascular: normal peripheral pulses, normal rate, regular rhythm, no gallop/murmur, no JVD Respiratory/Chest: chest wall non-tender, lungs clear, normal breath sounds, no respiratory distress, no accessory muscle use Abdomen: normal bowel sounds, non tender, soft, no organomegaly, no mass Extremities: normal range of motion, non-tender 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 (3) Acute hyperglycemia (4) Anemia (5) Diabetes mellitus out of control Assessment & Plan: Improving. Continue levemir and novolog sliding scale per endocrinology (6) Hyperparathyroidism (7) Gastritis (8) CAD (coronary artery disease) (9) HTN (hypertension) Assessment & Plan: continue norvasc and toprolol (10) BPH (benign prostatic hypertrophy) (11) Bladder outlet obstruction Assessment & Plan: suprapubic cath Status: stable Assessment/Plan Discharge to [facility] today DEE MAHER Nov 02, 2017 15:06
[2017-11-02 15:47] VITALS: BP 113/53
--- NOTE | 2017-11-02 16:22 | Infectious Diseases Prog Note ---
Assessment/Plan Assessment/Plan ASSESSMENT: The patient is a 62-year-old male with: 1. Report of bacteremia prior to this admission (the patient is a poor historian , there is no information available regarding that). 10/11 Bcx NTD Ucx NTD reviewed skilled nursing record- no mention or lab reports of bactermia. Stated reason for transferred was for abnormal labs and Diabetes control 2. Afebrile. 3. No Leukocytosis. 4. Uncontrolled diabetes. 5. No evidence of sepsis, urinary tract infection at this point. -. hx of recent hematuria, penile extensive herrohage with surrounidng cellulitis 09/2016, s/p Rx -s/p suprapubic cystostomy 09/28; re inserted 10/01 after patient pull it off -. History of suprapubic catheter placement. -. History of CKD, status post hemodialysis. -. 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 -. History of coag-negative Staph bacteremia in July 2007, AMY was negative for endocarditis (due to bacteremia due to the PICC line infection). -. History of enterococcus bacteremia in May 2017. -. History of suicidal attempt. -. History of myocardial infarction. -. Anemia. -. History of colon polyp. -. History of CAD. -. History of hypertension. -. Diabetes. PLAN: -. We will monitor the patient off of antibiotics -10/06 SP Doxycycline and Levaquin #4 -10/02 SP IV Vanco/Aztreonam #6 -09/10 SP Daptomycin #34 -. Monitor CBC. -. Monitor BMP. -. f/u blood and urine culture. -. Monitor chest x-ray. -. Based on the patient's clinical course and labs, we will do further recommendations. Thank you for this consultation. We will follow the patient during this admission. Subjective Allergies: Coded Allergies: CEFEPIME (Verified Allergy, Intermediate, Rash, 01/23/13) Subjective afebrile no leukcoytosis Bcx NTD offa bx Objective Vital Signs Last 24 Hour Vital Signs Date Time Temp Pulse Resp B/P (MAP) Pulse Ox O2 Delivery O2 Flow Rate FiO2 11/02/17 15:47 98.2 72 22 113/53 97 Room Air 98.2 72 11/02/17 12:00 97.1 85 20 145/87 95 Room Air 97.1 85 11/02/17 09:11 85 131/62 11/02/17 09:10 85 131/62 11/02/17 08:00 97.1 85 18 131/62 99 Room Air 97.1 85 11/02/17 04:15 98.1 66 18 111/57 97 98.1 11/02/17 00:28 98.2 70 18 109/56 95 98.2 11/01/17 21:00 76 115/59 11/01/17 19:58 98.1 76 17 115/59 95 98.1 Height (Feet): 5 Height (Inches): 10.00 Weight (Pounds): 170 Objective HEENT: No pale conjunctivae. No icterus. NECK: No lymphadenopathy. CHEST: Clear. HEART: S1, S2. ABDOMEN: Soft, nontender. Suprapubic catheter present. EXTREMITIES: No cyanosis. Laboratory Tests Test 11/02/17 06:15 White Blood Count 7.1 K/UL (4.8-10.8) Red Blood Count 3.93 M/UL (4.70-6.10) L Hemoglobin 12.8 G/DL (14.2-18.0) L Hematocrit 37.3 % (42.0-52.0) L Mean Corpuscular Volume 95 FL (80-99) Mean Corpuscular Hemoglobin 32.5 PG (27.0-31.0) H Mean Corpuscular Hemoglobin Concent 34.3 G/DL (32.0-36.0) Red Cell Distribution Width 17.3 % (11.6-14.8) H Platelet Count 225 K/UL (150-450) Mean Platelet Volume 6.6 FL (6.5-10.1) Neutrophils (%) (Auto) 58.6 % (45.0-75.0) Lymphocytes (%) (Auto) 28.6 % (20.0-45.0) Monocytes (%) (Auto) 8.0 % (1.0-10.0) Eosinophils (%) (Auto) 4.4 % (0.0-3.0) H Basophils (%) (Auto) 0.5 % (0.0-2.0) Sodium Level 136 MMOL/L (136-145) Potassium Level 4.0 MMOL/L (3.5-5.1) Chloride Level 109 MMOL/L (98-107) H Carbon Dioxide Level 13 MMOL/L (21-32) L Anion Gap 14 mmol/L (5-15) Blood Urea Nitrogen 64 mg/dL (7-18) H Creatinine 5.0 MG/DL (0.55-1.30) H Estimat Glomerular Filtration Rate 11.8 mL/min (>60) Glucose Level 226 MG/DL (74-106) H Calcium Level 8.7 MG/DL (8.5-10.1) Current Medications Medications (Trade) Dose Ordered Sig/Dunia Route PRN Reason Start Time Stop Time Status Last Admin Dose Admin Acetaminophen (Tylenol) 650 mg Q4H PRN ORAL fever 10/29/17 22:00 11/28/17 21:59 Albuterol/ Ipratropium (Albuterol/ Ipratropium) 3 ml EVERY 4 HOURS PRN HHN Shortness of Breath 10/29/17 22:00 11/03/17 21:59 Amlodipine Besylate (Norvasc) 5 mg DAILY ORAL 10/30/17 09:00 11/29/17 08:59 11/02/17 09:10 Atorvastatin Calcium (Lipitor) 10 mg BEDTIME ORAL 10/30/17 21:00 11/29/17 20:59 10/31/17 22:02 Dextrose (Dextrose 50%) 25 ml STAT PRN IV Hypoglycemia 10/30/17 12:15 11/29/17 12:14 10/30/17 17:07 Dextrose (Dextrose 50%) 50 ml STAT PRN IV Hypoglycemia 10/30/17 12:15 11/29/17 12:14 Docusate Sodium (Colace) 100 mg TWICE A DAY ORAL 10/30/17 18:00 11/29/17 17:59 11/02/17 09:10 Duloxetine HCl (Cymbalta) 30 mg DAILY ORAL 10/30/17 09:00 11/29/17 08:59 11/02/17 09:09 Heparin Sodium (Porcine) (Heparin 5000 units/ml) 5,000 units EVERY 12 HOURS SUBQ 10/30/17 09:00 11/29/17 08:59 11/02/17 09:09 Insulin Aspart (NovoLOG) BEFORE MEALS AND HS SUBQ 10/30/17 06:30 11/29/17 06:29 11/02/17 12:47 Insulin Aspart (NovoLOG) 6 units NOVOTIAC SUBQ 10/30/17 12:15 11/29/17 12:14 11/02/17 12:49 Insulin Detemir (Levemir) 12 units BID SUBQ 10/30/17 18:00 11/29/17 08:59 11/02/17 09:19 Metoclopramide HCl (Reglan) 5 mg BEFORE MEALS ORAL 10/30/17 16:30 11/29/17 16:29 11/02/17 12:45 Metoprolol Succinate (Toprol XL) 50 mg Q12HR ORAL 10/30/17 09:00 11/29/17 08:59 11/02/17 09:11 Morphine Sulfate (Morphine Sulfate) 2 mg Q4H PRN IVP moderate pain scale (4 to 6) 10/29/17 23:00 11/05/17 22:59 Nitroglycerin (Ntg) 0.4 mg Q5M PRN SL Prn Chest Pain 10/29/17 22:00 11/28/17 21:59 Olanzapine (ZyPREXA) 2.5 mg BEDTIME PRN ORAL For Anxiety 11/01/17 21:45 12/01/17 21:44 Ondansetron HCl (Zofran) 4 mg Q6H PRN IVP Nausea & Vomiting 10/29/17 22:00 11/28/17 21:59 Polyethylene Glycol (Miralax) 17 gm DAILYPRN PRN ORAL Constipation 10/29/17 22:00 11/28/17 21:59 Sevelamer Carbonate (Renvela) 800 mg THREE TIMES A DAY ORAL 10/30/17 09:00 11/29/17 08:59 11/02/17 12:45 Sodium Chloride 1,000 ml @ 75 mls/hr [id number] IV 10/30/17 16:00 11/29/17 15:59 11/02/17 09:23 Sodium Citrate (Bicitra) 30 ml EVERY 6 HOURS ORAL 10/30/17 18:00 11/29/17 17:59 11/02/17 12:45 Temazepam (Restoril) 15 mg HSPRN PRN ORAL Insomnia 10/29/17 22:00 11/05/17 21:59 Monique Read M.D. Nov 02, 2017 16:22
--- NOTE | 2017-11-02 23:47 | General Progress Note ---
Assessment/Plan Problem List: (1) DM (diabetes mellitus) ICD Codes: E11.9 - DM (diabetes mellitus) SNOMED: [id number] Assessment/Plan mdd encephalopathy schizophrenia -Cymbalta -Zyprexa prn Subjective Date patient seen: Nov 02, 2017 Neurologic/Psychiatric: Reports: anxiety, depressed, emotional problems Allergies: Coded Allergies: CEFEPIME (Verified Allergy, Intermediate, Rash, 01/23/13) Objective Last 24 Hour Vital Signs Date Time Temp Pulse Resp B/P (MAP) Pulse Ox O2 Delivery O2 Flow Rate FiO2 11/02/17 15:47 98.2 72 22 113/53 97 Room Air 98.2 72 11/02/17 12:00 97.1 85 20 145/87 95 Room Air 97.1 85 11/02/17 09:11 85 131/62 11/02/17 09:10 85 131/62 11/02/17 08:00 97.1 85 18 131/62 99 Room Air 97.1 85 11/02/17 04:15 98.1 66 18 111/57 97 98.1 11/02/17 00:28 98.2 70 18 109/56 95 98.2 Intake and Output 11/01/17 11/02/17 19:00 07:00 Intake Total 1860 ml 1305 ml Output Total 1600 ml 850 ml Balance 260 ml 455 ml Intake Oral 960 ml 480 ml IV Total 900 ml 825 ml Output Urine Total 1600 ml 850 ml # Voids 1 # Bowel Movements 2 Laboratory Tests 11/02/17 06:15: White Blood Count 7.1, Red Blood Count 3.93L, Hemoglobin 12.8L, Hematocrit 37.3L , Mean Corpuscular Volume 95, Mean Corpuscular Hemoglobin 32.5H, Mean Corpuscular Hemoglobin Concent 34.3, Red Cell Distribution Width 17.3H, Platelet Count 225, Mean Platelet Volume 6.6, Neutrophils (%) (Auto) 58.6, Lymphocytes (%) (Auto) 28.6, Monocytes (%) (Auto) 8.0, Eosinophils (%) (Auto) 4.4H, Basophils (%) (Auto) 0.5, Sodium Level 136, Potassium Level 4.0, Chloride Level 109H, Carbon Dioxide Level 13L, Anion Gap 14, Blood Urea Nitrogen 64H, Creatinine 5.0H, Estimat Glomerular Filtration Rate 11.8, Glucose Level 226H, Calcium Level 8.7 Height (Feet): 5 Height (Inches): 10.00 Weight (Pounds): 170 General Appearance: no apparent distress, alert Fatmata Lu M.D. Nov 02, 2017 23:47
--- NOTE | 2017-11-04 13:40 | Discharge Summary ---
Discharge Summary Discharge Summary Discharge Summary DATE OF ADMISSION: 10/29/2017 DATE OF DISCHARGE: 11/02/2017 CONSULTANTS: Dr. Esdras Cabrera [facility]SE: Patient is a 62-year-old white male, who presented with chief complaint of abnormal labs. He is a resident of [facility], according to staff, blood sugars have been elevated. Patient was not able to eat well for the past 3 days. She presented to emergency room for random blood sugar was found to be greater than 400. She has medical history significant for type 2 diabetes, chronic renal failure stage IV, failed renal transplant, anemia, renal osteodystrophy, secondary hyperparathyroidism, gastritis, coronary artery disease status post stent placement in 2007, nonST elevated VA 2, hypertension, BPH, night blindness, hypercholesterolemia, major depression status post suicide attempt in 2012. On evaluation at ED, glucose level was 401. There was no evidence of DKA. BUN/ creatinine elevated to 76/4.6 and anion gap was 14. Troponin was 0.021. He was given IV fluids and insulin. Patient is DO NOT RESUSCITATE. She was agitated and combative and required Ativan for sedation. EKG was in normal sinus rhythm. Chest x-ray with limited exam but no obvious acute cardiopulmonary disease. She was admitted for hyperglycemia and uncontrolled diabetes type 2. Blood sugars were monitored and was given NovoLog sliding scale. Levemir was reduced to 12 units twice a day and NovoLog 6 units ac 3 times a day. Patient has acute superimposed on chronic kidney disease and had dehydration partly due to hyperglycemia. Creatinine was lowering. Infectious disease was monitored for evaluation of possible bacteremia contributing to hyperglycemia. He was initially given vancomycin and was eventually taken off antibiotics. Blood culture did not isolate any growth, urine culture did not isolate any growth. There was no evidence of sepsis or urinary tract infection he was continued off antibiotics. Kidney function down trended. Patient had been depressed and had low energy, patient has anhedonia and anxiety. He was diagnosed with major depressive disorder, schizophrenia, encephalopathy. He was continued on Cymbalta and was eventually given Zyprexa when necessary. He was eventually discharged back to [facility]. FINAL DIAGNOSES: Diabetes mellitus out of control Acute on chronic renal failure, ATN Chronic kidney disease stage V superimposed on acute Anemia and chronic kidney disease Dehydration BPH Diabetic nephropathy History of kidney transplant Hyperparathyroidism Major depressive disorder Encephalopathy Schizophrenia Coronary artery disease Pulmonary hypertension DISPOSITION: Patient was discharged back to [facility] DISCHARGE MEDICATIONS: Refer to Discharge Medication List. I have been assigned to dictate discharge summary on this account, and I was not involved in the patient's management. Lyn Diaz NP Nov 04, 2017 13:40
== END 2017-11-02 18:39 | DRG 637 ==
LOC: EDBD 19:58 → EDBEDREQ 20:21 → EMR 20:41 → 4E 20:48 → EDBEDREQ 20:56
DX: E11.65 Type 2 diabetes mellitus with hyperglycemia (principal); G93.40 Encephalopathy, unspecified; N17.0 Acute kidney failure with tubular necrosis; Z94.0 Kidney transplant status; E87.2 Acidosis; N18.5 Chronic kidney disease, stage 5; N25.81 Secondary hyperparathyroidism of renal origin; I12.9 Hypertensive chronic kidney disease with stage 1 through stage 4 chronic kidney disease, or unspecified chronic kidney disease; E11.21 Type 2 diabetes mellitus with diabetic nephropathy; E11.22 Type 2 diabetes mellitus with diabetic chronic kidney disease; E86.0 Dehydration; N40.0 Benign prostatic hyperplasia without lower urinary tract symptoms; D63.1 Anemia in chronic kidney disease; E21.3 Hyperparathyroidism, unspecified; I25.10 Atherosclerotic heart disease of native coronary artery without angina pectoris; F20.9 Schizophrenia, unspecified; F32.9 Major depressive disorder, single episode, unspecified; H54.40 Blindness, one eye, unspecified eye; Z98.61 Coronary angioplasty status; I25.2 Old myocardial infarction; I27.20 Pulmonary hypertension, unspecified; K29.70 Gastritis, unspecified, without bleeding; Z66 Do not resuscitate; Z79.4 Long term (current) use of insulin
CPT/HCPCS: 36415; 71045; 80048; 80053; 80061; 80202; 81003; 82009; 82550; 82553; 82962; 82977; 83036; 83605; 83735; 83880; 84100; 84443; 84484; 84550; 85025; 86140; 87040; 87081; 87086; 93005; 99285; J1815; S5561

== ENCOUNTER 2017-11-25 09:22 | Inpatient (IN) | payer MEDICARE, MEDICAID ==
[~2017-11-25] VITALS: Ht 167.6 cm; Wt 72.6 kg
[2017-11-25] MEDS ORDERED: BICITRA30 ML ORAL (09:44)
[2017-11-25] MEDS ORDERED: LANSOPRAZOLE30 MG ORAL (09:45)
[2017-11-25 10:39] LABS: ANION GAP 15 mmol/L (5-15); BLOOD UREA NITROGEN 55 mg/dL (7-18); CALCIUM 8.6 MG/DL (8.5-10.1); CARBON DIOXIDE 18 MMOL/L (21-32); CHLORIDE 104 MMOL/L (98-107); CREATININE 4.5 MG/DL (0.55-1.30); SODIUM 137 MMOL/L (136-145)
[2017-11-25 10:54] LABS: ALANINE AMINOTRANSFERASE 22 U/L (12-78); ALBUMIN 2.7 G/DL (3.4-5.0); ALBUMIN/GLOBULIN RATIO 0.7 (1.0-2.7); ALKALINE PHOSPHATASE 77 U/L (46-116); ASPARTATE AMINO TRANSFERASE 33 U/L (15-37); BILIRUBIN,TOTAL 0.6 MG/DL (0.2-1.0); CKMB 0.6 NG/ML (0.0-3.6); CREATINE KINASE 85 U/L (26-308)
[2017-11-25 11:18] VITALS: BP 141/70
[2017-11-25 11:29] LABS: BASOPHILS % (AUTO) 0.9 % (0.0-2.0); EOSINOPHILS % (AUTO) 0.1 % (0.0-3.0); HEMATOCRIT 35.7 % (42.0-52.0); HEMOGLOBIN 11.2 G/DL (14.2-18.0); LYMPHOCYTES % (AUTO) 7.4 % (20.0-45.0); MEAN CORPUSCULAR VOLUME 92 FL (80-99); MONOCYTES % (AUTO) 7.9 % (1.0-10.0); NEUTROPHILS % (AUTO) 83.7 % (45.0-75.0); PLATELET COUNT 200 K/UL (150-450); RED BLOOD COUNT 3.88 M/UL (4.70-6.10); RED CELL DISTRIBUTION WIDTH 15.2 % (11.6-14.8); WHITE BLOOD COUNT 6.8 K/UL (4.8-10.8)
[2017-11-25 11:56] LABS: APPEARANCE,URINE CLEAR; BILIRUBIN, URINE NEGATIVE (NEGATIVE); COLOR,URINE PALE YELLOW; GLUCOSE, URINE (UA) NEGATIVE (NEGATIVE); KETONES,URINE NEGATIVE (NEGATIVE); LEUKOCYTE ESTERASE ,URINE NEGATIVE (NEGATIVE); NITRITE,URINE NEGATIVE (NEGATIVE); PH,URINE 5 (4.5-8.0); PROTEIN,URINE NEGATIVE (NEGATIVE); UROBILINOGEN,URINE NORMAL MG/DL (0.0-1.0)
--- NOTE | 2017-11-25 12:05 | Emergency Room Report ---
History of Present Illness General Chief Complaint: Fever Source: Patient, Medical Record Present Illness HPI Patient presents with reports of fever from nursing facility Patient himself has underlying encephalopathy Confusion The nursing staff documented temperature of 103 Patient was given medications Upon arrival the patient does have a suprapubic catheter in place there was no reports of vomiting or diarrhea Patient has not been eating as well recently Allergies: Coded Allergies: CEFEPIME (Verified Allergy, Intermediate, Rash, 01/23/13) Patient History Past Medical History: see triage record Pertinent Family History: none Reviewed Nursing Documentation: PMH: Agreed; PSxH: Agreed Nursing Documentation-PMH Past Medical History: No History, Except For Hx Cardiac Problems: Yes - anemia, CAD post stent placement [id number], nstemi MIx3 Hx Hypertension: Yes - left eye blindness, hypercholesterolemia Hx Pacemaker: No Hx Asthma: Yes Hx COPD: Yes Hx Diabetes: Yes - DMII, hx dka Hx Cancer: Yes - kidney and panreas ca Hx Neurological Problems: No Hx Cerebrovascular Accident: Yes Hx Transient Ischemic Attacks: No Hx Dementia: No Hx Alzheimer's Disease: No Hx Parkinson's Disease: No Hx Meningitis: No Hx Encephalitis: Yes - 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 ATTEMPT Hx Seizures: No Hx Epilepsy: No Hx Multiple Sclerosis: No Hx Cerebral Palsy: No Hx Amyotrophic Lat Sclerosis: No Hx [place] Syndrome: No Hx Paralysis: No Hx Peripheral Neuropathy: No Hx Spinal Cord Injury: No Hx Head Trauma: No Hx Traumatic Brain Injury: No Hx Memory Loss: No Hx Concentration Difficulty: No Hx Speech Problem: No Hx Tremors: No Hx Vertigo: No Hx Dizziness: Yes Hx Syncope: No Hx Headaches: No Hx Aphasia: No Hx Dysphasia: No Hx Numbness: No Hx Weakness: No Hx Fatigue: No Hx Neurologic Surgery: No Hx Brain Shunt: No Review of Systems All Other Systems: negative except mentioned in HPI Physical Exam Vital Signs Date Time Temp Pulse Resp B/P (MAP) Pulse Ox O2 Delivery O2 Flow Rate FiO2 11/25/17 09:20 97.5 76 20 99/65 95 Room Air 97.5 Sp02 EP Interpretation: reviewed, normal General Appearance: no apparent distress Head: normocephalic, atraumatic Eyes: bilateral eye PERRL, bilateral eye EOMI ENT: hearing grossly normal, TMs + canals normal, uvula midline, dry mucus membranes Neck: full range of motion, supple, no meningismus, no bony tend Respiratory: lungs clear, normal breath sounds, no rhonchi, no respiratory distress, no retraction, no accessory muscle use Cardiovascular #1: normal peripheral pulses, regular rate, rhythm, no edema, no gallop, no JVD, no murmur Gastrointestinal: normal bowel sounds, non tender, soft, no mass, no organomegaly, non-distended, no guarding, no hernia, no pulsatile mass, no rebound Genitourinary: no CVA tenderness, other - Suprapubic catheter in place Musculoskeletal: other - Moves both upper extremities without focal deficit Neurologic: alert, responsive, sensory intact Psychiatric: mood/affect normal Skin: normal color, no rash, warm/dry, palpation normal Lymphatic: normal inspection, no adenopathy Medical Decision Making Diagnostic Impression: Primary Impression: Sepsis Additional Impression: UTI (urinary tract infection) ER Course Patient is complex with multiple differentials considered Has extensive blood work initiated Urine sample does show infection Patient also showing signs of kidney disease Further IV hydration and antibiotics are provided and patient requires inpatient care Labs Test 11/25/17 10:10 11/25/17 11:15 11/25/17 11:29 11/26/17 05:15 Sodium Level 137 MMOL/L (136-145) 132 MMOL/L (136-145) Potassium Level 4.0 MMOL/L (3.5-5.1) 4.7 MMOL/L (3.5-5.1) Chloride Level 104 MMOL/L (98-107) 100 MMOL/L (98-107) Carbon Dioxide Level 18 MMOL/L (21-32) 20 MMOL/L (21-32) Anion Gap 15 mmol/L (5-15) 12 mmol/L (5-15) Blood Urea Nitrogen 55 mg/dL (7-18) 60 mg/dL (7-18) Creatinine 4.5 MG/DL (0.55-1.30) 4.8 MG/DL (0.55-1.30) Estimat Glomerular Filtration Rate 13.3 mL/min (>60) 12.3 mL/min (>60) Glucose Level 124 MG/DL (74-106) 439 MG/DL (74-106) Lactic Acid Level 2.30 mmol/L (0.66-2.22) 1.90 mmol/L (0.66-2.22) Calcium Level 8.6 MG/DL (8.5-10.1) 8.3 MG/DL (8.5-10.1) Total Bilirubin 0.6 MG/DL (0.2-1.0) 0.5 MG/DL (0.2-1.0) Aspartate Amino Transf (AST/SGOT) 33 U/L (15-37) 32 U/L (15-37) Alanine Aminotransferase (ALT/SGPT) 22 U/L (12-78) 23 U/L (12-78) Alkaline Phosphatase 77 U/L (46-116) 70 U/L (46-116) Total Creatine Kinase 85 U/L (26-308) 78 U/L (26-308) Creatine Kinase MB 0.6 NG/ML (0.0-3.6) Creatine Kinase MB Relative Index 0.7 Troponin I 0.013 ng/mL (0.000-0.056) 0.017 ng/mL (0.000-0.056) Pro-B-Type Natriuretic Peptide 4236 pg/mL (0-125) 4838 pg/mL (0-125) Total Protein 6.4 G/DL (6.4-8.2) 6.1 G/DL (6.4-8.2) Albumin 2.7 G/DL (3.4-5.0) 2.3 G/DL (3.4-5.0) Globulin 3.7 g/dL 3.8 g/dL Albumin/Globulin Ratio 0.7 (1.0-2.7) 0.6 (1.0-2.7) Lipase 271 U/L (73-393) White Blood Count 6.8 K/UL (4.8-10.8) 5.9 K/UL (4.8-10.8) Red Blood Count 3.88 M/UL (4.70-6.10) 3.27 M/UL (4.70-6.10) Hemoglobin 11.2 G/DL (14.2-18.0) 9.8 G/DL (14.2-18.0) Hematocrit 35.7 % (42.0-52.0) 30.5 % (42.0-52.0) Mean Corpuscular Volume 92 FL (80-99) 93 FL (80-99) Mean Corpuscular Hemoglobin 28.9 PG (27.0-31.0) 30.1 PG (27.0-31.0) Mean Corpuscular Hemoglobin Concent 31.4 G/DL (32.0-36.0) 32.3 G/DL (32.0-36.0) Red Cell Distribution Width 15.2 % (11.6-14.8) 15.5 % (11.6-14.8) Platelet Count 200 K/UL (150-450) 159 K/UL (150-450) Mean Platelet Volume 7.2 FL (6.5-10.1) 7.1 FL (6.5-10.1) Neutrophils (%) (Auto) 83.7 % (45.0-75.0) 73.1 % (45.0-75.0) Lymphocytes (%) (Auto) 7.4 % (20.0-45.0) 16.2 % (20.0-45.0) Monocytes (%) (Auto) 7.9 % (1.0-10.0) 9.5 % (1.0-10.0) Eosinophils (%) (Auto) 0.1 % (0.0-3.0) 0.5 % (0.0-3.0) Basophils (%) (Auto) 0.9 % (0.0-2.0) 0.7 % (0.0-2.0) C-Reactive Protein, Quantitative 5.9 mg/dL (0.00-0.90) Urine Color Pale yellow Urine Appearance Clear Urine pH 5 (4.5-8.0) Urine Specific [place]ander 1.015 (1.005-1.035) Urine Protein Negative (NEGATIVE) Urine Glucose (UA) Negative (NEGATIVE) Urine Ketones Negative (NEGATIVE) Urine Occult Blood Negative (NEGATIVE) Urine Nitrite Negative (NEGATIVE) Urine Bilirubin Negative (NEGATIVE) Urine Urobilinogen Normal MG/DL (0.0-1.0) Urine Leukocyte Esterase Negative (NEGATIVE) Hemoglobin A1c 6.8 % (4.3-6.0) Uric Acid 6.5 MG/DL (2.6-7.2) Phosphorus Level 4.0 MG/DL (2.5-4.9) Magnesium Level 1.7 MG/DL (1.8-2.4) Gamma Glutamyl Transpeptidase 11 U/L (5-85) Triglycerides Level 210 MG/DL (30-150) Cholesterol Level 139 MG/DL (< 200) LDL Cholesterol 72 mg/dL (<100) HDL Cholesterol 30 MG/DL (40-60) Cholesterol/HDL Ratio 4.6 (3.3-4.4) Thyroid Stimulating Hormone (TSH) 2.296 uiU/mL (0.358-3.740) Test 11/27/17 06:35 Rhythm Strip Diag. Results EP Interpretation: yes Rate: 77 Rhythm: NSR, no PVC's, no ectopy Chest X-Ray Diagnostic Results Chest X-Ray Diagnostic Results : Chest X-Ray Ordered: Yes # of Views/Limited/Complete: 1 View Indication: Chest Pain EP Interpretation: Yes Interpretation: no consolidation, no effusion, no pneumothorax Impression: No acute disease Electronically Signed by: Juan Bautista DO Last Vital Signs Date Time Temp Pulse Resp B/P (MAP) Pulse Ox O2 Delivery O2 Flow Rate FiO2 11/25/17 11:18 98.3 68 16 141/70 98 Room Air 98.3 Status: improved Disposition: ADMITTED INPATIENT Condition: Serious Referrals: Christopher Rosado MD (PCP) Juan Bautista DO November 25, 2017 12:04
[2017-11-25] MEDS ORDERED: Albuterol/Ipratropium 3ml neb HHN PRN (13:00)
[2017-11-25] MEDS ORDERED: Nitroglycerin Subl 0.4mg tab SL PRN (13:00)
[2017-11-25] MEDS ORDERED: Miralax 17gm pkt ORAL PRN (13:00)
[2017-11-25 13:06] VITALS: BP 154/73
[2017-11-25 13:20] VITALS: BP 143/79
[2017-11-25] MEDS ORDERED: Aztreonam Inj 1 GM in NS 50 ML IVPB SCH (14:00)
--- NOTE | 2017-11-25 14:11 | Diagnostic Imaging Report ---
Indication: Chest pain Technique: One view of the chest Comparison: 10/29/2017 Findings: Suboptimal inspiration currently. Lungs and pleural spaces are clear. Heart size is normal. Old healed left rib fracture deformity again demonstrated. No significant interim change Impression: Hypoventilatory exam. No definite acute process
[2017-11-25] MEDS: Renvela 800mg Pkt ORAL SCH ×2 (15:21→17:13)
[2017-11-25] MEDS ORDERED: Vancomycin 1.5 GM/D5W 250ML IVPB ONE (15:30)
[2017-11-25] MEDS: NovoLOG Insulin Flexpen SUBQ SCH ×2 (16:45→21:59)
--- NOTE | 2017-11-25 16:47 | Consultation ---
Consult Note Consult Note asked to eval for renal failure- Known to me from his previous admissions Patient presents with reports of fever from nursing facility Patient himself has underlying encephalopathy Confusion The nursing staff documented temperature of 103 Patient was given medications Upon arrival the patient does have a suprapubic catheter in place there was no reports of vomiting or diarrhea Patient has not been eating as well recently Allergies: Coded Allergies: CEFEPIME (Verified Allergy, Intermediate, Rash, 01/23/13) Past Medical History: No History, Except For Hx Cardiac Problems: Yes - anemia, CAD post stent placement [id number], nstemi MIx3 Hx Hypertension: Yes - left eye blindness, hypercholesterolemia Hx Asthma: Yes Hx COPD: Yes Hx Diabetes: Yes - DMII, hx dka Hx Cancer: Yes - kidney and panreas ca Hx Cerebrovascular Accident: Yes Hx Encephalitis: Yes - 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 ATTEMPT Hx Dizziness: Yes interviewed examined data reviewed Assessment/Plan (1) CKD (chronic kidney disease), stage III, superimposed acute- Cr ethan since last admit- has metabolic acidosis (2) ? Dehydration- (3) type 2 diabetes mellitus (4) BPH (benign prostatic hypertrophy), has supra pubic cath (5) Nephropathy, diabetic (6) History of simultaneous kidney and pancreas transplant (7) h/o UTI (urinary tract infection) (8) Anemia of CKD (9) HyperParathyroidism Has suprapubic cath slow hydrate re address dialysis avoid nephrotoxics BP and BS control- monitor renal parameters per ID... BERT ALONSO November 25, 2017 16:47
[2017-11-25 20:00] VITALS: BP 143/84
--- NOTE | 2017-11-25 21:51 | Consultation ---
Consult Note Assessment/Plan [id number] ASSESSMENT: The patient is a 62-year-old male with: Ro f bacteremia Febrile No Leukocytosis. Ro, urinary tract infection at this point. -. History of suprapubic catheter placement. -. History of CKD, status post hemodialysis. -. 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 -. History of coag-negative Staph bacteremia in July 2007, AMY was negative for endocarditis (due to bacteremia due to the PICC line infection). -. History of enterococcus bacteremia in May 2017 - DM -. History of suicidal attempt. -. History of myocardial infarction. -. Anemia. -. History of colon polyp. -. History of CAD. -. History of hypertension. -. Diabetes. PLAN: -. We will cont IV Vaco and Azactam d# 1 -10/06 SP Doxycycline and Levaquin #4 -10/02 SP IV Vanco/Aztreonam #6 -/ SP Daptomycin #34 -. Monitor CBC. -. Monitor BMP. -. f/u blood and urine culture. -. Monitor chest x-ray. - Influ SX Thank you Rich Wick MD November 25, 2017 21:51
[2017-11-25] MEDS: Aztreonam Inj 0.5 GM in NS 55 ML IVPB SCH (21:56)
[2017-11-25] MEDS: Heparin 5000 units/ml inj SUBQ SCH (21:58)
--- NOTE | 2017-11-25 22:09 | History & Physical ---
History and Physical History & Physicial Christopher Rosado MD November 25, 2017 22:09
[2017-11-26] VITALS: BP 121/66
[2017-11-26] MEDS ORDERED: Vancomycin 1 GM in D5W 275 ML IV SCH (00:30)
--- NOTE | 2017-11-26 01:45 | Consultation ---
DATE OF CONSULTATION: 11/25/2017 INFECTIOUS DISEASE CONSULTATION CONSULTING PHYSICIAN: Rich Wick M.D. REFERRING PHYSICIAN: Christopher Rosado M.D. REASON FOR CONSULTATION: Evaluation of the patient for sepsis, fever, and antibiotic management. HISTORY OF PRESENT ILLNESS: The patient is a 62-year-old male with multiple medical problems. He was admitted to this medical center for fever. The patient was sent from the correction. The patient overall is a poor historian. Infectious Disease consultation has been requested for evaluation of the patient and antibiotic management. PAST MEDICAL HISTORY: Significant for: 1. History of sepsis. 2. History of hematuria. 3. History of suprapubic catheter placement, cystostomy on September 28, 2017. 4. History of CKD. 5. History of renal and pancreas transplant about 10 years ago. 6. History of enterococcal bacteremia in May 2017. 7. History of suicidal attempt. 8. History rof [place]/CAD. 9. Anemia. 10. History of colon polyps. 11. Hypertension. 12. Diabetes. ALLERGIES: Cefepime. FAMILY HISTORY: Not contributory. REVIEW OF SYSTEMS: HEENT: No recent change in vision or hearing. PULMONARY: No history of cough. CARDIOVASCULAR: The patient is now having chest pain. GASTROINTESTINAL: Denies nausea, vomiting or diarrhea. GENITOURINARY: No particular complaint as mentioned above. The patient has suprapubic. NEUROLOGIC: No history of seizure. OTHER MEDICATIONS: The patient is on aztreonam and vancomycin. PHYSICAL EXAMINATION: VITAL SIGNS: Temperature 102.4, pulse 86, respiratory rate 18, and blood pressure 143/88. HEENT: No pale conjunctiva. No icterus. NECK: Supple. CHEST: Clear. HEART: S1 and S2. ABDOMEN: Soft. Suprapubic in place. NEUROLOGIC: Awake. LABORATORY DATA: WBC 6.8, hemoglobin 11.2, platelets 200,000. UA unremarkable. BUN 54, creatinine 4.5. ALT, AST, and alkaline phosphatase unremarkable. UA shows 5 to 10 white blood cells. Blood culture pending. Urine culture is pending. Chest x-ray, [facility]. ASSESSMENT: The patient is a 62-year-old male with multiple medical problems as listed above, who has fever. 1. Rule out bacteremia. 2. Rule out urinary tract infection (in the setting of suprapubic catheter). 3. Rule out influenza. PLAN: 1. We will continue the patient on vancomycin and aztreonam for now. 2. Monitor blood culture. 3. Monitor urine culture. 4. History of sepsis. 5. Monitor BMP. 6. Chest x-ray, influenza test. 7. Based on the patient's clinical course and laboratories, we will do further recommendations. Thank you, Dr. Rosado, for allowing me to participate in the care of this patient. I will follow the patient with you during this hospitalization. Rich Wick M.D. DR: PORTER JOB#: [id number] CC:
--- NOTE | 2017-11-26 02:45 | History and Physical Report ---
DATE OF ADMISSION: 11/25/2017 CHIEF COMPLAINT: Transfer from [facility] after spike in fever. HISTORY OF PRESENT ILLNESS: This is a 62-year-old very delightful gentleman with past medical history significant for chronic kidney disease, stage 3 to 4, history of asthma, chronic obstructive pulmonary disease, diabetes type 2 with a prior history of diabetic ketoacidosis, history of kidney and pancreatic CA with prior history of suicide attempts, coronary artery disease, status post percutaneous transluminal coronary angioplasty with stent placement in 2007, left eye blindness, dyslipidemia, and hypertension, who was presented to the hospital from nursing facility, [facility] after a spike in fever of 103. The patient was noted to be more altered than usual and intravenous hydration was started and subsequently, the patient was transferred to [facility] for further evaluation and workup. Shortly after initial evaluation in the emergency room, the patient was admitted to the hospital with fever and possible early sepsis. PAST MEDICAL HISTORY/PAST SURGICAL HISTORY: As above. History of chronic kidney disease stage 3 to 4 with history of diabetes type 2 with diabetic ketoacidosis, BPH, status post suprapubic catheter with nephrogenic bladder, history of diabetic nephropathy, history of kidney and pancreas transplant, recurrent urinary tract infection, anemia of chronic kidney disease, hyperparathyroidism, history of coronary artery disease, status post percutaneous transluminal coronary angioplasty with stent, left eye blindness with prosthetic eye, and dyslipidemia. MEDICATIONS: Please refer to medication reconciliation list. ALLERGIES: Cefepime. SOCIAL HISTORY: Denies any smoking, alcohol, or drugs at this time. skilled nursing resident. FAMILY HISTORY: Noncontributory. REVIEW OF SYSTEMS: Mostly as above. Denies any dysuria, frequency, or hematuria. Denies any hemoptysis or hematochezia. Denies any double vision. Denies any suicidal or homicidal ideation. However, the patient had a history of suicide attempt in the past. Denies any loss of consciousness. Denies any bowel or urine incontinence. The patient, however, has chronic suprapubic catheter. PHYSICAL EXAMINATION: VITAL SIGNS: On admission, temperature 97.5, pulse of 76, respirations 20, and blood pressure 99/65. GENERAL: The patient is awake, responsive, and in no acute distress. HEAD AND NECK: Pupils reactive to light. Extraocular movements intact. Neck was supple. No JVD. 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 LUNGS: Good air entry. No wheezing or rales. HEART: S1, S2. Regular rate and rhythm. No gallops. ABDOMEN: Soft, nondistended, and nontender. Positive bowel sounds. GENITALIA: Normal male organ as well as suprapubic catheter placement. No sign of infection. EXTREMITIES: No cyanosis, clubbing, or edema. NEUROLOGIC: Cranial nerves II through XII grossly intact. Motor is 5/5 in all extremities. Gait is intact. LABORATORY AND DIAGNOSTIC DATA: On admission from the ER, urinalysis essentially unremarkable. Sodium 137, potassium 4.0, chloride 104, bicarb 18, BUN 55, and creatinine 4.5. GFR is 13. Glucose is 124. Lactic acid is 2.30. Troponin 0.013. ProBNP of 4236. Lipase is 271. WBC of 6.8, hemoglobin 11, hematocrit 35, and platelets is 200,000. Chest x-ray noted to be hypoventilated exam. No definite acute process. ASSESSMENT: 1. Fever, possible early sepsis. 2. History of suprapubic catheter placement due to the neurogenic bladder. 3. Chronic kidney disease, stage 3 to 4 with a prior history of hemodialysis. 4. 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 5. Prior history of enterococcus bacteremia. 6. Diabetes type 2, with a prior history of diabetic ketoacidosis. 7. The coronary artery disease and myocardial infarction, status post percutaneous transluminal coronary angioplasty with stent. 8. Hypertension. 9. Dyslipidemia. 10. . 11. History of anemia. PLAN: 1. Admit the patient to monitored unit. 2. We will follow up with the cultures. 3. Broad-spectrum antibiotics, vancomycin and Azactam. 4. Monitor blood glucose level. 5. IV hydration. 6. Discussed the case with Dr. Luis Chambers from Nephrology, Dr. Delgado from Pulmonary Critical Care, Dr. Rich Wick from Infectious Disease, Dr. Modesto Jacques from endocrine. 7. We will monitor laboratory closely. 8. Code status Full Code. 9. DVT prophylaxis with heparin subcutaneous. Christopher Rosado M.D. DR: RODNEY JOB#: [id number] CC:
[2017-11-26 04:00] VITALS: BP 132/65
[2017-11-26 05:41] LABS: BASOPHILS % (AUTO) 0.7 % (0.0-2.0); EOSINOPHILS % (AUTO) 0.5 % (0.0-3.0); HEMATOCRIT 30.5 % (42.0-52.0); HEMOGLOBIN 9.8 G/DL (14.2-18.0); LYMPHOCYTES % (AUTO) 16.2 % (20.0-45.0); MEAN CORPUSCULAR VOLUME 93 FL (80-99); MONOCYTES % (AUTO) 9.5 % (1.0-10.0); NEUTROPHILS % (AUTO) 73.1 % (45.0-75.0); PLATELET COUNT 159 K/UL (150-450); RED BLOOD COUNT 3.27 M/UL (4.70-6.10); RED CELL DISTRIBUTION WIDTH 15.5 % (11.6-14.8); WHITE BLOOD COUNT 5.9 K/UL (4.8-10.8)
[2017-11-26] MEDS: Aztreonam Inj 0.5 GM in NS 55 ML IVPB SCH ×3 (06:04→22:06)
[2017-11-26 06:07] LABS: ALANINE AMINOTRANSFERASE 23 U/L (12-78); ALBUMIN 2.3 G/DL (3.4-5.0); ALBUMIN/GLOBULIN RATIO 0.6 (1.0-2.7); ALKALINE PHOSPHATASE 70 U/L (46-116); ANION GAP 12 mmol/L (5-15); ASPARTATE AMINO TRANSFERASE 32 U/L (15-37); BILIRUBIN,TOTAL 0.5 MG/DL (0.2-1.0); BLOOD UREA NITROGEN 60 mg/dL (7-18); CALCIUM 8.3 MG/DL (8.5-10.1); CARBON DIOXIDE 20 MMOL/L (21-32); CHLORIDE 100 MMOL/L (98-107); CHOLESTEROL 139 MG/DL (< 200); CREATININE 4.8 MG/DL (0.55-1.30); HDL CHOLESTEROL 30 MG/DL (40-60); POTASSIUM 4.7 MMOL/L (3.5-5.1); SODIUM 132 MMOL/L (136-145); TRIGLYCERIDES 210 MG/DL (30-150)
[2017-11-26] MEDS: NovoLOG Insulin Flexpen SUBQ SCH ×4 (06:26→22:08)
[2017-11-26 07:28] LABS: CREATINE KINASE 78 U/L (26-308); GAMMA GLUTAMYL TRANSPEPTIDASE 11 U/L (5-85)
[2017-11-26 08:00] VITALS: BP 115/60
[2017-11-26] MEDS ORDERED: DULoxetine 30mg cap ORAL SCH (09:00)
[2017-11-26] MEDS ORDERED: azaTHIOprine 50 MG TAB ORAL SCH (09:00)
[2017-11-26] MEDS: Renvela 800mg Pkt ORAL SCH ×3 (09:45→17:22)
[2017-11-26] MEDS: Heparin 5000 units/ml inj SUBQ SCH ×2 (09:45→21:51)
[2017-11-26] MEDS ORDERED: NS 275ml ONE (09:47)
[2017-11-26] MEDS ORDERED: Tubing IV Secondary IV ONE (09:47)
[2017-11-26 12:00] VITALS: BP 119/62
--- NOTE | 2017-11-26 13:15 | Consultation ---
History of Present Illness General Date patient seen: November 26, 2017 Chief Complaint: Fever Present Illness HPI 62 year old male with hx of advanced renal disease, DM, [facility] resident presented to ER with reports of fever from nursing facility The nursing staff documented temperature of 103. Upon arrival the patient does have a suprapubic catheter. Pt can't give any history. looks comfortable. Allergies: Coded Allergies: CEFEPIME (Verified Allergy, Intermediate, Rash, 01/23/13) Medication History Scheduled Amlodipine Besylate (Norvasc), 5 MG ORAL DAILY, (Reported) Atorvastatin Calcium* (Lipitor*), 10 MG ORAL BEDTIME Azathioprine* (Imuran*), 50 MG PO DAILY, (Reported) Duloxetine Hcl* (Cymbalta*), 30 MG ORAL DAILY, (Reported) Epoetin Jose (Epogen), 10,000 UNIT SUBQ THREE TIMES A WEEK, (Reported) Insulin Aspart (Novolog Flexpen), 6 UNITS SUBQ NOVOTIAC Insulin Detemir (Levemir Flexpen), 12 UNITS SUBQ BID Lansoprazole* (Prevacid*), 30 MG ORAL DAILY, (Reported) Lansoprazole* (Lansoprazole*), 30 MG ORAL DAILY, (Reported) Metoprolol Succinate* (Metoprolol Succinate*), 50 MG ORAL Q12HR, (Reported) Polyethylene Glycol* (Miralax*), 17 GM ORAL BEDTIME Sevelamer Carbonate* (Renvela*), 800 MG ORAL THREE TIMES A DAY, (Reported) Sevelamer Carbonate* (Renvela*), 800 MG ORAL THREE TIMES A DAY, (Reported) Sodium Citrate (Sod Citrate-Citric Acid Soln), 30 ML ORAL EVERY 6 HOURS, ( Reported) Warfarin Sod* (Coumadin*), 5 MG ORAL DAILY, (Reported) Scheduled PRN Acetaminophen (Acetaminophen), 650 MG ORAL Q6H PRN for Prn Headache/Temp > 101, (Reported) Nitroglycerin (Nitroglycerin), 0.4 MG SL for Prn Chest Pain, (Reported) Temazepam* (Restoril*), 15 MG ORAL BEDTIME PRN for Insomnia, (Reported) Patient History Healthcare decision maker Resuscitation status Full Code Advanced Directive on File No Past Medical/Surgical History Past Medical/Surgical History: (1) Suprapubic catheter (2) Kidney transplant status (3) CAD (coronary artery disease) (4) Pulmonary HTN (5) CKD (chronic kidney disease), stage III (6) DM (diabetes mellitus) Review of Systems All Other Systems: negative except mentioned in HPI Physical Exam General Appearance: no apparent distress Lines, tubes and drains: peripheral HEENT: normocephalic, atraumatic Neck: non-tender, normal alignment Respiratory/Chest: chest wall non-tender, lungs clear Breasts: no masses Cardiovascular/Chest: normal peripheral pulses Abdomen: normal bowel sounds Genitourinary/Rectal: normal genital exam Extremities: normal range of motion Last 24 Hour Vital Signs Date Time Temp Pulse Resp B/P (MAP) Pulse Ox O2 Delivery O2 Flow Rate FiO2 11/26/17 12:00 66 11/26/17 12:00 98.1 67 20 119/62 98 Room Air 98.1 11/26/17 09:46 84 115/60 11/26/17 08:07 84 18 Room Air 11/26/17 08:00 82 11/26/17 08:00 98.4 80 21 115/60 98 Room Air 98.4 11/26/17 04:00 98.4 80 22 132/65 98 Room Air 98.4 11/26/17 04:00 75 11/26/17 00:00 88 11/26/17 00:00 96.7 86 19 121/66 96 Room Air 96.7 11/25/17 22:15 98.1 98.1 11/25/17 20:00 102.4 100 22 143/84 98 102.4 11/25/17 20:00 105 11/25/17 16:00 80 11/25/17 13:20 98.0 84 16 143/79 98 Room Air 98.0 11/25/17 13:10 98.3 67 16 154/73 98 Room Air 98.3 Intake and Output 11/25/17 11/26/17 19:00 07:00 Intake Total 550 ml Output Total 650 ml 750 ml Balance -100 ml -750 ml Intake Oral 250 ml IV Total 300 ml Output Urine Total 650 ml 750 ml Laboratory Tests Test 11/26/17 05:15 White Blood Count 5.9 K/UL (4.8-10.8) Red Blood Count 3.27 M/UL (4.70-6.10) L Hemoglobin 9.8 G/DL (14.2-18.0) L Hematocrit 30.5 % (42.0-52.0) L Mean Corpuscular Volume 93 FL (80-99) Mean Corpuscular Hemoglobin 30.1 PG (27.0-31.0) Mean Corpuscular Hemoglobin Concent 32.3 G/DL (32.0-36.0) Red Cell Distribution Width 15.5 % (11.6-14.8) H Platelet Count 159 K/UL (150-450) Mean Platelet Volume 7.1 FL (6.5-10.1) Neutrophils (%) (Auto) 73.1 % (45.0-75.0) Lymphocytes (%) (Auto) 16.2 % (20.0-45.0) L Monocytes (%) (Auto) 9.5 % (1.0-10.0) Eosinophils (%) (Auto) 0.5 % (0.0-3.0) Basophils (%) (Auto) 0.7 % (0.0-2.0) Sodium Level 132 MMOL/L (136-145) L Potassium Level 4.7 MMOL/L (3.5-5.1) Chloride Level 100 MMOL/L (98-107) Carbon Dioxide Level 20 MMOL/L (21-32) L Anion Gap 12 mmol/L (5-15) Blood Urea Nitrogen 60 mg/dL (7-18) H Creatinine 4.8 MG/DL (0.55-1.30) H Estimat Glomerular Filtration Rate 12.3 mL/min (>60) Glucose Level 439 MG/DL (74-106) #H Hemoglobin A1c 6.8 % (4.3-6.0) H Uric Acid 6.5 MG/DL (2.6-7.2) Calcium Level 8.3 MG/DL (8.5-10.1) L Phosphorus Level 4.0 MG/DL (2.5-4.9) Magnesium Level 1.7 MG/DL (1.8-2.4) L Total Bilirubin 0.5 MG/DL (0.2-1.0) Gamma Glutamyl Transpeptidase 11 U/L (5-85) Aspartate Amino Transf (AST/SGOT) 32 U/L (15-37) Alanine Aminotransferase (ALT/SGPT) 23 U/L (12-78) Alkaline Phosphatase 70 U/L (46-116) Total Creatine Kinase 78 U/L (26-308) Troponin I 0.017 ng/mL (0.000-0.056) Pro-B-Type Natriuretic Peptide 4838 pg/mL (0-125) H Total Protein 6.1 G/DL (6.4-8.2) L Albumin 2.3 G/DL (3.4-5.0) L Globulin 3.8 g/dL Albumin/Globulin Ratio 0.6 (1.0-2.7) L Triglycerides Level 210 MG/DL (30-150) H Cholesterol Level 139 MG/DL (< 200) LDL Cholesterol 72 mg/dL (<100) HDL Cholesterol 30 MG/DL (40-60) L Cholesterol/HDL Ratio 4.6 (3.3-4.4) H Thyroid Stimulating Hormone (TSH) 2.296 uiU/mL (0.358-3.740) Microbiology Date/Time Source Procedure Growth Status 11/26/17 04:32 Nasopharynx Influenza Types A,B Antigen (NIA) - Final Complete Height (Feet): 5 Height (Inches): 6.00 Weight (Pounds): 160 Medications Current Medications Medications (Trade) Dose Ordered Sig/Dunia Route PRN Reason Start Time Stop Time Status Last Admin Dose Admin Acetaminophen (Tylenol) 650 mg Q4H PRN ORAL fever 11/25/17 13:00 12/25/17 12:59 Albuterol/ Ipratropium (Albuterol/ Ipratropium) 3 ml EVERY 4 HOURS PRN HHN Shortness of Breath 11/25/17 13:00 11/30/17 12:59 Amlodipine Besylate (Norvasc) 5 mg DAILY ORAL 11/26/17 09:00 12/26/17 08:59 11/26/17 09:46 Azathioprine (Imuran) 50 mg DAILY ORAL 11/26/17 09:00 12/26/17 08:59 11/26/17 09:45 Aztreonam 0.5 gm/ Sodium Chloride 55 ml @ 110 mls/hr Q8HR IVPB 11/25/17 22:00 12/02/17 21:59 11/26/17 06:04 Chlorhexidine Gluconate (Eloisa-Hex 2%) 1 applic DAILY@2000 TOPIC 11/26/17 20:00 12/26/17 19:59 Dextrose (Dextrose 50%) 25 ml STAT PRN IV Hypoglycemia BS 60-69mg/dl 11/25/17 14:43 12/25/17 14:42 Dextrose (Dextrose 50%) 50 ml STAT PRN IV Hypoglycemia BS less than 60mg 11/25/17 14:43 12/25/17 14:42 Duloxetine HCl (Cymbalta) 30 mg DAILY ORAL 11/26/17 09:00 12/26/17 08:59 11/26/17 09:45 Heparin Sodium (Porcine) (Heparin 5000 units/ml) 5,000 units EVERY 12 HOURS SUBQ 11/25/17 21:00 12/25/17 20:59 11/26/17 09:45 Insulin Aspart (NovoLOG) BEFORE MEALS AND HS SUBQ 11/25/17 16:30 12/25/17 16:29 11/26/17 11:11 Nitroglycerin (Ntg) 0.4 mg Q 5 MINS PRN SL Prn Chest Pain 11/25/17 13:00 12/25/17 12:59 Ondansetron HCl (Zofran) 4 mg Q6H PRN IVP Nausea & Vomiting 11/25/17 13:00 12/25/17 12:59 Polyethylene Glycol (Miralax) 17 gm DAILYPRN PRN ORAL Constipation 11/25/17 13:00 12/25/17 12:59 Sevelamer Carbonate (Renvela) 800 mg THREE TIMES A DAY ORAL 11/25/17 14:45 12/25/17 14:44 11/26/17 12:31 Sodium Chloride 1,000 ml @ 75 mls/hr [id number] IV 11/26/17 06:30 12/26/17 06:29 11/26/17 06:48 Temazepam (Restoril) 15 mg HSPRN PRN ORAL Insomnia 11/25/17 13:00 12/02/17 12:59 Vancomycin HCl (Vanco rx to dose) 1 ea DAILY PRN MISC . 11/25/17 14:45 12/25/17 14:44 Assessment/Plan Problem List: (1) Sepsis ICD Codes: A41.9 - Sepsis, unspecified organism SNOMED: 76789239 (2) Acute on chronic renal failure ICD Codes: N17.9 - Acute on chronic renal failure; N18.9 - Chronic kidney disease, unspecified SNOMED: 510534549 (3) Renal transplant recipient ICD Codes: Z94.0 - Renal transplant recipient SNOMED: 726934950 (4) HTN (hypertension) ICD Codes: I10 - HTN (hypertension) SNOMED: 62303069 (5) CAD (coronary artery disease) ICD Codes: I25.10 - CAD (coronary artery disease) SNOMED: 907782398 Assessment/Plan schneider culture iv abx iv fluids check electrolytes sliding scale diabetic diet check urine electrolytes monitor BP Esdras Delgado MD November 26, 2017 13:15
--- NOTE | 2017-11-26 15:05 | Nephrology Progress Note ---
Assessment/Plan Problem List: (1) Acute on chronic renal failure (2) Anemia in chronic kidney disease (3) Nephropathy, diabetic (4) Uncontrolled diabetes mellitus (5) BPH (benign prostatic hypertrophy) Assessment (1) CKD (chronic kidney disease), stage III, superimposed acute- Cr ethan since last admit- has metabolic acidosis (2) ? Dehydration- (3) type 2 diabetes mellitus (4) BPH (benign prostatic hypertrophy), has supra pubic cath (5) Nephropathy, diabetic (6) History of simultaneous kidney and pancreas transplant (7) h/o UTI (urinary tract infection) (8) Anemia of CKD (9) HyperParathyroidism Plan being treated for sepsis Has suprapubic cath slow hydrate re address dialysis avoid nephrotoxics BP and BS control- monitor renal parameters per ID... Subjective ROS Limited/Unobtainable: No Constitutional: Reports: malaise Objective Objective Last 24 Hour Vital Signs Date Time Temp Pulse Resp B/P (MAP) Pulse Ox O2 Delivery O2 Flow Rate FiO2 11/26/17 12:00 66 11/26/17 12:00 98.1 67 20 119/62 98 Room Air 98.1 11/26/17 09:46 84 115/60 11/26/17 08:07 84 18 Room Air 11/26/17 08:00 82 11/26/17 08:00 98.4 80 21 115/60 98 Room Air 98.4 11/26/17 04:00 98.4 80 22 132/65 98 Room Air 98.4 11/26/17 04:00 75 11/26/17 00:00 88 11/26/17 00:00 96.7 86 19 121/66 96 Room Air 96.7 11/25/17 22:15 98.1 98.1 11/25/17 20:00 102.4 100 22 143/84 98 102.4 11/25/17 20:00 105 11/25/17 16:00 80 Intake and Output 11/25/17 11/26/17 19:00 07:00 Intake Total 550 ml Output Total 650 ml 750 ml Balance -100 ml -750 ml Intake Oral 250 ml IV Total 300 ml Output Urine Total 650 ml 750 ml Laboratory Tests 11/26/17 05:15: White Blood Count 5.9, Red Blood Count 3.27L, Hemoglobin 9.8L, Hematocrit 30.5L , Mean Corpuscular Volume 93, Mean Corpuscular Hemoglobin 30.1, Mean Corpuscular Hemoglobin Concent 32.3, Red Cell Distribution Width 15.5H, Platelet Count 159, Mean Platelet Volume 7.1, Neutrophils (%) (Auto) 73.1, Lymphocytes (%) (Auto) 16.2L, Monocytes (%) (Auto) 9.5, Eosinophils (%) (Auto) 0.5, Basophils (%) (Auto) 0.7, Sodium Level 132L, Potassium Level 4.7, Chloride Level 100, Carbon Dioxide Level 20L, Anion Gap 12, Blood Urea Nitrogen 60H, Creatinine 4.8H, Estimat Glomerular Filtration Rate 12.3, Glucose Level 439#H, Hemoglobin A1c 6.8H, Uric Acid 6.5, Calcium Level 8.3L, Phosphorus Level 4.0, Magnesium Level 1.7L, Total Bilirubin 0.5, Gamma Glutamyl Transpeptidase 11, Aspartate Amino Transf (AST/SGOT) 32, Alanine Aminotransferase (ALT/SGPT) 23, Alkaline Phosphatase 70, Total Creatine Kinase 78, Troponin I 0.017, Pro-B-Type Natriuretic Peptide 4838H, Total Protein 6.1L, Albumin 2.3L, Globulin 3.8, Albumin/Globulin Ratio 0.6L, Triglycerides Level 210H, Cholesterol Level 139, LDL Cholesterol 72, HDL Cholesterol 30L, Cholesterol/HDL Ratio 4.6H, Thyroid Stimulating Hormone (TSH) 2.296 Height (Feet): 5 Height (Inches): 6.00 Weight (Pounds): 160 Respiratory/Chest: decreased breath sounds Abdomen: distended Genitourinary/Rectal: other - supra pubic BERT ALONSO November 26, 2017 15:05
--- NOTE | 2017-11-26 15:39 | Consultation ---
History of Present Illness General Date patient seen: November 25, 2017 Chief Complaint: Fever Present Illness HPI 62-year-old male with multiple medical problems came in to medical center for fever. the pt has poor memory and is more confused than baseline. the pt has been depressed and Cymbalta was decreased recently Allergies: Coded Allergies: CEFEPIME (Verified Allergy, Intermediate, Rash, 01/23/13) Medication History Scheduled Amlodipine Besylate (Norvasc), 5 MG ORAL DAILY, (Reported) Atorvastatin Calcium* (Lipitor*), 10 MG ORAL BEDTIME Azathioprine* (Imuran*), 50 MG PO DAILY, (Reported) Duloxetine Hcl* (Cymbalta*), 30 MG ORAL DAILY, (Reported) Epoetin Jose (Epogen), 10,000 UNIT SUBQ THREE TIMES A WEEK, (Reported) Insulin Aspart (Novolog Flexpen), 6 UNITS SUBQ NOVOTIAC Insulin Detemir (Levemir Flexpen), 12 UNITS SUBQ BID Lansoprazole* (Prevacid*), 30 MG ORAL DAILY, (Reported) Lansoprazole* (Lansoprazole*), 30 MG ORAL DAILY, (Reported) Metoprolol Succinate* (Metoprolol Succinate*), 50 MG ORAL Q12HR, (Reported) Polyethylene Glycol* (Miralax*), 17 GM ORAL BEDTIME Sevelamer Carbonate* (Renvela*), 800 MG ORAL THREE TIMES A DAY, (Reported) Sevelamer Carbonate* (Renvela*), 800 MG ORAL THREE TIMES A DAY, (Reported) Sodium Citrate (Sod Citrate-Citric Acid Soln), 30 ML ORAL EVERY 6 HOURS, ( Reported) Warfarin Sod* (Coumadin*), 5 MG ORAL DAILY, (Reported) Scheduled PRN Acetaminophen (Acetaminophen), 650 MG ORAL Q6H PRN for Prn Headache/Temp > 101, (Reported) Nitroglycerin (Nitroglycerin), 0.4 MG SL for Prn Chest Pain, (Reported) Temazepam* (Restoril*), 15 MG ORAL BEDTIME PRN for Insomnia, (Reported) Patient History Limited by: medical condition History Provided By: Patient, Medical Record, PMD Healthcare decision maker Resuscitation status Full Code Advanced Directive on File No Past Medical/Surgical History Past Medical/Surgical History: (1) Renal mass, right (2) ESRD (end stage renal disease) (3) Hyperparathyroidism (4) Acidosis, metabolic (5) Diabetes mellitus out of control (6) Hyperglycemia due to type 2 diabetes mellitus (7) Gastritis (8) Blind left eye (9) Bladder outlet obstruction (10) Hematemesis (11) Hypokalemia (12) Renal osteodystrophy (13) Hematuria (14) Hematuria (15) Gastrointestinal hemorrhage (16) Gastrointestinal hemorrhage (17) Anemia (18) Bacteremia (19) Coagulopathy (20) DKA (diabetic ketoacidoses) (21) Gastritis (22) GI bleeding (23) GI hemorrhage (24) Hypercholesteremia (25) Hyponatremia (26) Hypoparathyroidism (27) Pancreatitis (28) Retention, urine (29) Urine retention (30) Iron deficiency anemia (31) UTI (urinary tract infection) (32) DVT (deep venous thrombosis) (33) Vitamin D deficiency (34) Fall (35) Encephalopathy acute (36) Head trauma (37) Head trauma (38) UTI (lower urinary tract infection) (39) CKD (chronic kidney disease), stage III (40) Colon polyps (41) Scrotal edema (42) Abnormal laboratory test result (43) BPH (benign prostatic hyperplasia) (44) RIVKA (acute kidney injury) (45) Laceration of lip (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, diabetic, left eye (47) Excessive anticoagulation (48) Elevated lipase (49) Acute hyperglycemia (50) DVT of axillary vein, 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 (52) urinary retention (53) Fever (54) Suprapubic catheter (55) Sepsis (56) ATN (acute tubular necrosis) (57) BPH (benign prostatic hypertrophy) (58) Nephropathy, diabetic (59) Uncontrolled diabetes mellitus (60) Altered mental state (61) Respiratory disease (62) diabetic keto acidosis (63) Renal insufficiency (64) Elevated troponin (65) Dehydration (66) Renal insufficiency (67) Acute renal failure (ARF) (68) CKD (chronic kidney disease), stage III (69) DKA (diabetic ketoacidoses) (70) PR (myocardial infarction) (71) C. difficile colitis (72) Staphylococcus aureus pneumonia (73) Hypernatremia (74) DM (diabetes mellitus) (75) Anemia (76) GI bleeding (77) DM (diabetes mellitus) (78) Acute hyperglycemia (79) Anemia (80) Hyponatremia (81) CKD (chronic kidney disease), stage III (82) Renal insufficiency (83) Dehydration (84) Coronary heart disease (85) Psychiatric disturbance (86) Pulmonary HTN (87) Acute on chronic renal failure (88) CAD (coronary artery disease) (89) HTN (hypertension) (90) Anemia in chronic kidney disease (91) Anemia in chronic kidney disease (92) Iron deficiency anemia Review of Systems Psychiatric: Reports: anxiety, depressed feelings, emotional problems Physical Exam General Appearance: no apparent distress, alert Neurologic: oriented x 3, responsive, depressed affect Last 24 Hour Vital Signs Date Time Temp Pulse Resp B/P (MAP) Pulse Ox O2 Delivery O2 Flow Rate FiO2 11/26/17 12:00 66 11/26/17 12:00 98.1 67 20 119/62 98 Room Air 98.1 11/26/17 09:46 84 115/60 11/26/17 08:07 84 18 Room Air 11/26/17 08:00 82 11/26/17 08:00 98.4 80 21 115/60 98 Room Air 98.4 11/26/17 04:00 98.4 80 22 132/65 98 Room Air 98.4 11/26/17 04:00 75 11/26/17 00:00 88 11/26/17 00:00 96.7 86 19 121/66 96 Room Air 96.7 11/25/17 22:15 98.1 98.1 11/25/17 20:00 102.4 100 22 143/84 98 102.4 11/25/17 20:00 105 11/25/17 16:00 80 Intake and Output 11/25/17 11/26/17 19:00 07:00 Intake Total 550 ml Output Total 650 ml 750 ml Balance -100 ml -750 ml Intake Oral 250 ml IV Total 300 ml Output Urine Total 650 ml 750 ml Laboratory Tests Test 11/26/17 05:15 White Blood Count 5.9 K/UL (4.8-10.8) Red Blood Count 3.27 M/UL (4.70-6.10) L Hemoglobin 9.8 G/DL (14.2-18.0) L Hematocrit 30.5 % (42.0-52.0) L Mean Corpuscular Volume 93 FL (80-99) Mean Corpuscular Hemoglobin 30.1 PG (27.0-31.0) Mean Corpuscular Hemoglobin Concent 32.3 G/DL (32.0-36.0) Red Cell Distribution Width 15.5 % (11.6-14.8) H Platelet Count 159 K/UL (150-450) Mean Platelet Volume 7.1 FL (6.5-10.1) Neutrophils (%) (Auto) 73.1 % (45.0-75.0) Lymphocytes (%) (Auto) 16.2 % (20.0-45.0) L Monocytes (%) (Auto) 9.5 % (1.0-10.0) Eosinophils (%) (Auto) 0.5 % (0.0-3.0) Basophils (%) (Auto) 0.7 % (0.0-2.0) Sodium Level 132 MMOL/L (136-145) L Potassium Level 4.7 MMOL/L (3.5-5.1) Chloride Level 100 MMOL/L (98-107) Carbon Dioxide Level 20 MMOL/L (21-32) L Anion Gap 12 mmol/L (5-15) Blood Urea Nitrogen 60 mg/dL (7-18) H Creatinine 4.8 MG/DL (0.55-1.30) H Estimat Glomerular Filtration Rate 12.3 mL/min (>60) Glucose Level 439 MG/DL (74-106) #H Hemoglobin A1c 6.8 % (4.3-6.0) H Uric Acid 6.5 MG/DL (2.6-7.2) Calcium Level 8.3 MG/DL (8.5-10.1) L Phosphorus Level 4.0 MG/DL (2.5-4.9) Magnesium Level 1.7 MG/DL (1.8-2.4) L Total Bilirubin 0.5 MG/DL (0.2-1.0) Gamma Glutamyl Transpeptidase 11 U/L (5-85) Aspartate Amino Transf (AST/SGOT) 32 U/L (15-37) Alanine Aminotransferase (ALT/SGPT) 23 U/L (12-78) Alkaline Phosphatase 70 U/L (46-116) Total Creatine Kinase 78 U/L (26-308) Troponin I 0.017 ng/mL (0.000-0.056) Pro-B-Type Natriuretic Peptide 4838 pg/mL (0-125) H Total Protein 6.1 G/DL (6.4-8.2) L Albumin 2.3 G/DL (3.4-5.0) L Globulin 3.8 g/dL Albumin/Globulin Ratio 0.6 (1.0-2.7) L Triglycerides Level 210 MG/DL (30-150) H Cholesterol Level 139 MG/DL (< 200) LDL Cholesterol 72 mg/dL (<100) HDL Cholesterol 30 MG/DL (40-60) L Cholesterol/HDL Ratio 4.6 (3.3-4.4) H Thyroid Stimulating Hormone (TSH) 2.296 uiU/mL (0.358-3.740) Microbiology Date/Time Source Procedure Growth Status 11/26/17 04:32 Nasopharynx Influenza Types A,B Antigen (NIA) - Final Complete Height (Feet): 5 Height (Inches): 6.00 Weight (Pounds): 160 Medications Current Medications Medications (Trade) Dose Ordered Sig/Dunia Route PRN Reason Start Time Stop Time Status Last Admin Dose Admin Acetaminophen (Tylenol) 650 mg Q4H PRN ORAL fever 11/25/17 13:00 12/25/17 12:59 Albuterol/ Ipratropium (Albuterol/ Ipratropium) 3 ml EVERY 4 HOURS PRN HHN Shortness of Breath 11/25/17 13:00 11/30/17 12:59 Amlodipine Besylate (Norvasc) 5 mg DAILY ORAL 11/26/17 09:00 12/26/17 08:59 11/26/17 09:46 Azathioprine (Imuran) 50 mg DAILY ORAL 11/26/17 09:00 12/26/17 08:59 11/26/17 09:45 Aztreonam 0.5 gm/ Sodium Chloride 55 ml @ 110 mls/hr Q8HR IVPB 11/25/17 22:00 12/02/17 21:59 11/26/17 14:41 Chlorhexidine Gluconate (Eloisa-Hex 2%) 1 applic DAILY@2000 TOPIC 11/26/17 20:00 12/26/17 19:59 Dextrose (Dextrose 50%) 25 ml STAT PRN IV Hypoglycemia BS 60-69mg/dl 11/25/17 14:43 12/25/17 14:42 Dextrose (Dextrose 50%) 50 ml STAT PRN IV Hypoglycemia BS less than 60mg 11/25/17 14:43 12/25/17 14:42 Duloxetine HCl (Cymbalta) 30 mg DAILY ORAL 11/26/17 09:00 12/26/17 08:59 11/26/17 09:45 Heparin Sodium (Porcine) (Heparin 5000 units/ml) 5,000 units EVERY 12 HOURS SUBQ 11/25/17 21:00 12/25/17 20:59 11/26/17 09:45 Insulin Aspart (NovoLOG) BEFORE MEALS AND HS SUBQ 11/25/17 16:30 12/25/17 16:29 11/26/17 11:11 Nitroglycerin (Ntg) 0.4 mg Q 5 MINS PRN SL Prn Chest Pain 11/25/17 13:00 12/25/17 12:59 Ondansetron HCl (Zofran) 4 mg Q6H PRN IVP Nausea & Vomiting 11/25/17 13:00 12/25/17 12:59 Polyethylene Glycol (Miralax) 17 gm DAILYPRN PRN ORAL Constipation 11/25/17 13:00 12/25/17 12:59 Sevelamer Carbonate (Renvela) 800 mg THREE TIMES A DAY ORAL 11/25/17 14:45 12/25/17 14:44 11/26/17 12:31 Sodium Chloride 1,000 ml @ 75 mls/hr [id number] IV 11/26/17 06:30 12/26/17 06:29 11/26/17 06:48 Temazepam (Restoril) 15 mg HSPRN PRN ORAL Insomnia 11/25/17 13:00 12/02/17 12:59 Vancomycin HCl (Vanco rx to dose) 1 ea DAILY PRN MISC . 11/25/17 14:45 12/25/17 14:44 Assessment/Plan Status: stable Assessment/Plan mdd cymbalta 30mg qam provided Fatmata Mcclain M.D. November 26, 2017 15:38
--- NOTE | 2017-11-26 15:39 | General Progress Note ---
Assessment/Plan Status: stable, progressing Assessment/Plan mdd cymbalta 30mg qam provided ro Subjective Date patient seen: November 26, 2017 Neurologic/Psychiatric: Reports: anxiety, depressed, emotional problems Allergies: Coded Allergies: CEFEPIME (Verified Allergy, Intermediate, Rash, 01/23/13) Objective Last 24 Hour Vital Signs Date Time Temp Pulse Resp B/P (MAP) Pulse Ox O2 Delivery O2 Flow Rate FiO2 11/26/17 12:00 66 11/26/17 12:00 98.1 67 20 119/62 98 Room Air 98.1 11/26/17 09:46 84 115/60 11/26/17 08:07 84 18 Room Air 11/26/17 08:00 82 11/26/17 08:00 98.4 80 21 115/60 98 Room Air 98.4 11/26/17 04:00 98.4 80 22 132/65 98 Room Air 98.4 11/26/17 04:00 75 11/26/17 00:00 88 11/26/17 00:00 96.7 86 19 121/66 96 Room Air 96.7 11/25/17 22:15 98.1 98.1 11/25/17 20:00 102.4 100 22 143/84 98 102.4 11/25/17 20:00 105 11/25/17 16:00 80 Intake and Output 11/25/17 11/26/17 19:00 07:00 Intake Total 550 ml Output Total 650 ml 750 ml Balance -100 ml -750 ml Intake Oral 250 ml IV Total 300 ml Output Urine Total 650 ml 750 ml Laboratory Tests 11/26/17 05:15: White Blood Count 5.9, Red Blood Count 3.27L, Hemoglobin 9.8L, Hematocrit 30.5L , Mean Corpuscular Volume 93, Mean Corpuscular Hemoglobin 30.1, Mean Corpuscular Hemoglobin Concent 32.3, Red Cell Distribution Width 15.5H, Platelet Count 159, Mean Platelet Volume 7.1, Neutrophils (%) (Auto) 73.1, Lymphocytes (%) (Auto) 16.2L, Monocytes (%) (Auto) 9.5, Eosinophils (%) (Auto) 0.5, Basophils (%) (Auto) 0.7, Sodium Level 132L, Potassium Level 4.7, Chloride Level 100, Carbon Dioxide Level 20L, Anion Gap 12, Blood Urea Nitrogen 60H, Creatinine 4.8H, Estimat Glomerular Filtration Rate 12.3, Glucose Level 439#H, Hemoglobin A1c 6.8H, Uric Acid 6.5, Calcium Level 8.3L, Phosphorus Level 4.0, Magnesium Level 1.7L, Total Bilirubin 0.5, Gamma Glutamyl Transpeptidase 11, Aspartate Amino Transf (AST/SGOT) 32, Alanine Aminotransferase (ALT/SGPT) 23, Alkaline Phosphatase 70, Total Creatine Kinase 78, Troponin I 0.017, Pro-B-Type Natriuretic Peptide 4838H, Total Protein 6.1L, Albumin 2.3L, Globulin 3.8, Albumin/Globulin Ratio 0.6L, Triglycerides Level 210H, Cholesterol Level 139, LDL Cholesterol 72, HDL Cholesterol 30L, Cholesterol/HDL Ratio 4.6H, Thyroid Stimulating Hormone (TSH) 2.296 Height (Feet): 5 Height (Inches): 6.00 Weight (Pounds): 160 General Appearance: WD/WN, no apparent distress, alert Neurologic: oriented x 3, responsive, depressed affect Fatmata Lu M.D. November 26, 2017 15:39
[2017-11-26 16:00] VITALS: BP 123/62
[2017-11-26 20:00] VITALS: BP 116/65
[2017-11-26] MEDS ORDERED: Dyna-Hex 2% Top Sol 2oz TOPIC SCH ×2 (20:00→22:30)
[2017-11-26] MEDS ORDERED: Nitroglycerin Subl 0.4mg tab SL PRN (21:30)
[2017-11-26] MEDS ORDERED: Albuterol/Ipratropium 3ml neb HHN PRN (21:30)
[2017-11-26] MEDS ORDERED: Miralax 17gm pkt ORAL PRN (21:31)
--- NOTE | 2017-11-26 22:48 | Internal Med Progress Note ---
Subjective Physician Name Christopher Rosado Attending Physician Christopher Rosado MD Current Medications Medications (Trade) Dose Ordered Sig/Dunia Route PRN Reason Start Time Stop Time Status Last Admin Dose Admin Acetaminophen (Tylenol) 650 mg Q4H PRN ORAL fever (Temp>100.5) 11/26/17 21:29 12/25/17 21:28 Albuterol/ Ipratropium (Albuterol/ Ipratropium) 3 ml Q4H PRN HHN Shortness of Breath 11/26/17 21:30 12/01/17 21:29 Amlodipine Besylate (Norvasc) 5 mg DAILY ORAL 11/27/17 09:00 12/27/17 08:59 Azathioprine (Imuran) 50 mg DAILY ORAL 11/27/17 09:00 12/27/17 08:59 Aztreonam 0.5 gm/ Sodium Chloride 55 ml @ 110 mls/hr Q8HR IVPB 11/26/17 22:00 12/02/17 21:59 11/26/17 22:06 Chlorhexidine Gluconate (Eloisa-Hex 2%) 1 applic DAILY@2000 TOPIC 11/27/17 20:00 12/26/17 19:59 Chlorhexidine Gluconate (Eloisa-Hex 2%) 1 applic ONCE TOPIC 11/26/17 22:30 11/26/17 23:59 11/26/17 21:49 Dextrose (Dextrose 50%) 25 ml STAT PRN IV Hypoglycemia BS 60-69mg/dl 11/26/17 21:29 12/26/17 21:28 Dextrose (Dextrose 50%) 50 ml STAT PRN IV Hypoglycemia BS less than 60mg 11/26/17 21:30 12/26/17 21:29 Duloxetine HCl (Cymbalta) 30 mg DAILY ORAL 11/27/17 09:00 12/27/17 08:59 Heparin Sodium (Porcine) (Heparin 5000 units/ml) 5,000 units EVERY 12 HOURS SUBQ 11/26/17 21:00 12/25/17 20:59 11/26/17 21:51 Insulin Aspart (NovoLOG) BEFORE MEALS AND HS SUBQ 11/26/17 22:00 12/25/17 21:59 11/26/17 22:08 Nitroglycerin (Ntg) 0.4 mg Q 5 MINS PRN SL Prn Chest Pain 11/26/17 21:30 12/25/17 21:29 Ondansetron HCl (Zofran) 4 mg Q6H PRN IVP Nausea & Vomiting 11/26/17 21:30 12/26/17 21:29 Polyethylene Glycol (Miralax) 17 gm DAILYPRN PRN ORAL Constipation 11/26/17 21:31 12/26/17 21:30 Sevelamer Carbonate (Renvela) 800 mg THREE TIMES A DAY ORAL 11/27/17 09:00 12/27/17 08:59 Sodium Chloride 1,000 ml @ 75 mls/hr [id number] IV 11/26/17 21:29 12/26/17 21:28 11/26/17 21:51 Temazepam (Restoril) 15 mg HSPRN PRN ORAL Insomnia 11/26/17 21:00 12/03/17 20:59 Vancomycin HCl (Vanco rx to dose) 1 ea DAILY PRN MISC . 11/26/17 21:31 12/26/17 21:30 Allergies: Coded Allergies: CEFEPIME (Verified Allergy, Intermediate, Rash, 01/23/13) Subjective awake, alert, responsive, NAD, Objective Last Vital Signs Date Time Temp Pulse Resp B/P (MAP) Pulse Ox O2 Delivery O2 Flow Rate FiO2 11/26/17 20:00 97.7 75 20 116/65 96 Room Air 97.7 Laboratory Tests Test 11/26/17 05:15 White Blood Count 5.9 K/UL (4.8-10.8) Red Blood Count 3.27 M/UL (4.70-6.10) L Hemoglobin 9.8 G/DL (14.2-18.0) L Hematocrit 30.5 % (42.0-52.0) L Mean Corpuscular Volume 93 FL (80-99) Mean Corpuscular Hemoglobin 30.1 PG (27.0-31.0) Mean Corpuscular Hemoglobin Concent 32.3 G/DL (32.0-36.0) Red Cell Distribution Width 15.5 % (11.6-14.8) H Platelet Count 159 K/UL (150-450) Mean Platelet Volume 7.1 FL (6.5-10.1) Neutrophils (%) (Auto) 73.1 % (45.0-75.0) Lymphocytes (%) (Auto) 16.2 % (20.0-45.0) L Monocytes (%) (Auto) 9.5 % (1.0-10.0) Eosinophils (%) (Auto) 0.5 % (0.0-3.0) Basophils (%) (Auto) 0.7 % (0.0-2.0) Sodium Level 132 MMOL/L (136-145) L Potassium Level 4.7 MMOL/L (3.5-5.1) Chloride Level 100 MMOL/L (98-107) Carbon Dioxide Level 20 MMOL/L (21-32) L Anion Gap 12 mmol/L (5-15) Blood Urea Nitrogen 60 mg/dL (7-18) H Creatinine 4.8 MG/DL (0.55-1.30) H Estimat Glomerular Filtration Rate 12.3 mL/min (>60) Glucose Level 439 MG/DL (74-106) #H Hemoglobin A1c 6.8 % (4.3-6.0) H Uric Acid 6.5 MG/DL (2.6-7.2) Calcium Level 8.3 MG/DL (8.5-10.1) L Phosphorus Level 4.0 MG/DL (2.5-4.9) Magnesium Level 1.7 MG/DL (1.8-2.4) L Total Bilirubin 0.5 MG/DL (0.2-1.0) Gamma Glutamyl Transpeptidase 11 U/L (5-85) Aspartate Amino Transf (AST/SGOT) 32 U/L (15-37) Alanine Aminotransferase (ALT/SGPT) 23 U/L (12-78) Alkaline Phosphatase 70 U/L (46-116) Total Creatine Kinase 78 U/L (26-308) Troponin I 0.017 ng/mL (0.000-0.056) Pro-B-Type Natriuretic Peptide 4838 pg/mL (0-125) H Total Protein 6.1 G/DL (6.4-8.2) L Albumin 2.3 G/DL (3.4-5.0) L Globulin 3.8 g/dL Albumin/Globulin Ratio 0.6 (1.0-2.7) L Triglycerides Level 210 MG/DL (30-150) H Cholesterol Level 139 MG/DL (< 200) LDL Cholesterol 72 mg/dL (<100) HDL Cholesterol 30 MG/DL (40-60) L Cholesterol/HDL Ratio 4.6 (3.3-4.4) H Thyroid Stimulating Hormone (TSH) 2.296 uiU/mL (0.358-3.740) Microbiology Date/Time Source Procedure Growth Status 11/26/17 04:32 Nasopharynx Influenza Types A,B Antigen (NIA) - Final Complete Intake and Output 11/25/17 11/26/17 19:00 07:00 Intake Total 550 ml Output Total 650 ml 750 ml Balance -100 ml -750 ml Intake Oral 250 ml IV Total 300 ml Output Urine Total 650 ml 750 ml Objective GENERAL: The patient is awake, responsive, and in no acute distress. HEAD AND NECK: Pupils reactive to light. Extraocular movements intact. Neck was supple. No JVD. 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 LUNGS: Good air entry. No wheezing or rales. HEART: S1, S2. Regular rate and rhythm. No gallops. ABDOMEN: Soft, nondistended, and nontender. Positive bowel sounds. GENITALIA: Normal male organ as well as suprapubic catheter placement. No sign of infection. EXTREMITIES: No cyanosis, clubbing, or edema. NEUROLOGIC: Cranial nerves II through XII grossly intact. Motor is 5/5 in all extremities. Gait is intact. Assessment/Plan Assessment/Plan 1. Fever, possible early sepsis. 2. History of suprapubic catheter placement due to the neurogenic bladder. 3. Chronic kidney disease, stage 3 to 4 with a prior history of hemodialysis. 4. 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 5. Prior history of enterococcus bacteremia. 6. Diabetes type 2, with a prior history of diabetic ketoacidosis. 7. The coronary artery disease and myocardial infarction, status post percutaneous transluminal coronary angioplasty with stent. 8. Hypertension. 9. Dyslipidemia. 10. History of anemia. PLAN: 1. transfer to med / surg from monitored unit. 2. We will follow up with the cultures. 3. Broad-spectrum antibiotics: vancomycin and Azactam. 4. Monitor blood glucose level. 5. IV hydration. 6. Discussed the case with Dr. Luis Chambers from Nephrology, Dr. Delgado from Pulmonary Critical Care, Dr. Rich Wick from Infectious Disease, Dr. Modesto Jacques from endocrine. 7. We will monitor laboratory closely. 8. Code status Full Code. 9. DVT prophylaxis with heparin subcutaneous. Christopher Rosado MD November 26, 2017 22:47
[2017-11-27 00:12] VITALS: BP 110/65
[2017-11-27 04:00] VITALS: BP 117/70
[2017-11-27] MEDS: Aztreonam Inj 0.5 GM in NS 55 ML IVPB SCH ×3 (06:22→21:58)
[2017-11-27] MEDS: NovoLOG Insulin Flexpen SUBQ SCH ×7 (06:23→21:24)
[2017-11-27 07:06] LABS: EOSINOPHILS % (AUTO) 2.6 % (0.0-3.0); HEMATOCRIT 28.7 % (42.0-52.0); HEMOGLOBIN 9.3 G/DL (14.2-18.0); LYMPHOCYTES % (AUTO) 18.5 % (20.0-45.0); MEAN CORPUSCULAR VOLUME 93 FL (80-99); MONOCYTES % (AUTO) 12.7 % (1.0-10.0); NEUTROPHILS % (AUTO) 65.2 % (45.0-75.0); PLATELET COUNT 152 K/UL (150-450); RED BLOOD COUNT 3.09 M/UL (4.70-6.10); RED CELL DISTRIBUTION WIDTH 15.1 % (11.6-14.8); WHITE BLOOD COUNT 5.4 K/UL (4.8-10.8)
[2017-11-27 07:27] LABS: ALANINE AMINOTRANSFERASE 24 U/L (12-78); ALBUMIN 2.3 G/DL (3.4-5.0); ALBUMIN/GLOBULIN RATIO 0.6 (1.0-2.7); ALKALINE PHOSPHATASE 67 U/L (46-116); ANION GAP 13 mmol/L (5-15); ASPARTATE AMINO TRANSFERASE 21 U/L (15-37); BILIRUBIN,TOTAL 0.4 MG/DL (0.2-1.0); BLOOD UREA NITROGEN 61 mg/dL (7-18); CALCIUM 8.3 MG/DL (8.5-10.1); CARBON DIOXIDE 16 MMOL/L (21-32); CHLORIDE 106 MMOL/L (98-107); CREATININE 4.9 MG/DL (0.55-1.30); PHOSPHORUS 4.7 MG/DL (2.5-4.9); POTASSIUM 5.3 MMOL/L (3.5-5.1); SODIUM 135 MMOL/L (136-145)
--- NOTE | 2017-11-27 07:46 | Pulmonology Progress Note ---
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8 11/26/17 16:00 81 11/26/17 12:00 66 11/26/17 12:00 98.1 67 20 119/62 98 Room Air 98.1 11/26/17 09:46 84 115/60 11/26/17 08:07 84 18 Room Air 11/26/17 08:00 82 11/26/17 08:00 98.4 80 21 115/60 98 Room Air 98.4 Intake and Output 11/26/17 11/27/17 19:00 07:00 Intake Total 955 ml 915 ml Output Total 700 ml 800 ml Balance 255 ml 115 ml Intake Oral 240 ml IV Total 955 ml 675 ml Output Urine Total 700 ml 800 ml General Appearance: no acute distress HEENT: normocephalic, atraumatic Respiratory/Chest: lungs clear, no respiratory distress, no accessory muscle use Cardiovascular: normal peripheral pulses, normal rate, no JVD Abdomen: normal bowel sounds, soft, non tender, non distended Genitourinary: other - s/p catheter Extremities: no edema Neurologic/Psychiatric: alert, responsive, normal mood/affect Musculoskeletal: normal muscle bulk Microbiology Date/Time Source Procedure Growth Status 11/26/17 04:32 Nasopharynx Influenza Types A,B Antigen (NIA) - Final Complete Laboratory Tests 11/27/17 06:35: White Blood Count 5.4, Red Blood Count 3.09L, Hemoglobin 9.3L, Hematocrit 28.7L , Mean Corpuscular Volume 93, Mean Corpuscular Hemoglobin 30.0, Mean Corpuscular Hemoglobin Concent 32.3, Red Cell Distribution Width 15.1H, Platelet Count 152, Mean Platelet Volume 7.4, Neutrophils (%) (Auto) 65.2, Lymphocytes (%) (Auto) 18.5L, Monocytes (%) (Auto) 12.7H, Eosinophils (%) (Auto ) 2.6, Basophils (%) (Auto) 1.0, Sodium Level 135L, Potassium Level 5.3H, Chloride Level 106, Carbon Dioxide Level 16L, Anion Gap 13, Blood Urea Nitrogen 61H, Creatinine 4.9H, Estimat Glomerular Filtration Rate 12.1, Glucose Level 368H, Calcium Level 8.3L, Phosphorus Level 4.7, Magnesium Level 1.8, Total Bilirubin 0.4, Aspartate Amino Transf (AST/SGOT) 21, Alanine Aminotransferase ( ALT/SGPT) 24, Alkaline Phosphatase 67, Total Protein 6.0L, Albumin 2.3L, Globulin 3.7, Albumin/Globulin Ratio 0.6L, Random Vancomycin Level 13.1 Current Medications Medications (Trade) Dose Ordered Sig/Dunia Route PRN Reason Start Time Stop Time Status Last Admin Dose Admin Acetaminophen (Tylenol) 650 mg Q4H PRN ORAL fever (Temp>100.5) 11/26/17 21:29 12/25/17 21:28 Albuterol/ Ipratropium (Albuterol/ Ipratropium) 3 ml Q4H PRN HHN Shortness of Breath 11/26/17 21:30 12/01/17 21:29 Amlodipine Besylate (Norvasc) 5 mg DAILY ORAL 11/27/17 09:00 12/27/17 08:59 Azathioprine (Imuran) 50 mg DAILY ORAL 11/27/17 09:00 12/27/17 08:59 Aztreonam 0.5 gm/ Sodium Chloride 55 ml @ 110 mls/hr Q8HR IVPB 11/26/17 22:00 12/02/17 21:59 11/27/17 06:22 Chlorhexidine Gluconate (Eloisa-Hex 2%) 1 applic DAILY@2000 TOPIC 11/27/17 20:00 12/26/17 19:59 Dextrose (Dextrose 50%) 25 ml STAT PRN IV Hypoglycemia BS 60-69mg/dl 11/26/17 21:29 12/26/17 21:28 Dextrose (Dextrose 50%) 25 ml STAT PRN IV Hypoglycemia 11/27/17 07:00 12/27/17 06:59 Dextrose (Dextrose 50%) 50 ml STAT PRN IV Hypoglycemia BS less than 60mg 11/26/17 21:30 12/26/17 21:29 Dextrose (Dextrose 50%) 50 ml STAT PRN IV Hypoglycemia 11/27/17 07:00 12/27/17 06:59 Duloxetine HCl (Cymbalta) 30 mg DAILY ORAL 11/27/17 09:00 12/27/17 08:59 Heparin Sodium (Porcine) (Heparin 5000 units/ml) 5,000 units EVERY 12 HOURS SUBQ 11/26/17 21:00 12/25/17 20:59 11/26/17 21:51 Insulin Aspart (NovoLOG) BEFORE MEALS AND HS SUBQ 11/26/17 22:00 12/25/17 21:59 11/27/17 06:23 Insulin Aspart (NovoLOG) 5 units NOVOTIAC SUBQ 11/27/17 08:00 12/27/17 07:59 Insulin Detemir (Levemir) 8 units Q12HR SUBQ 11/27/17 09:00 12/27/17 08:59 Nitroglycerin (Ntg) 0.4 mg Q 5 MINS PRN SL Prn Chest Pain 11/26/17 21:30 12/25/17 21:29 Ondansetron HCl (Zofran) 4 mg Q6H PRN IVP Nausea & Vomiting 11/26/17 21:30 12/26/17 21:29 Polyethylene Glycol (Miralax) 17 gm DAILYPRN PRN ORAL Constipation 11/26/17 21:31 12/26/17 21:30 Sevelamer Carbonate (Renvela) 800 mg THREE TIMES A DAY ORAL 11/27/17 09:00 12/27/17 08:59 Sodium Chloride 1,000 ml @ 75 mls/hr [id number] IV 11/26/17 21:29 12/26/17 21:28 11/26/17 21:51 Temazepam (Restoril) 15 mg HSPRN PRN ORAL Insomnia 11/26/17 21:00 12/03/17 20:59 Vancomycin HCl (Vanco rx to dose) 1 ea DAILY PRN MISC . 11/26/17 21:31 12/26/17 21:30 Catherine Griffin NP November 27, 2017 07:46
[2017-11-27 08:00] VITALS: BP 144/80
[2017-11-27] MEDS: Heparin 5000 units/ml inj SUBQ SCH ×2 (08:42→21:22)
[2017-11-27] MEDS: Levemir Flexpen SUBQ SCH ×2 (08:43→21:23)
[2017-11-27] MEDS: DULoxetine 30mg cap ORAL SCH (08:43)
[2017-11-27] MEDS: Renvela 800mg Pkt ORAL SCH ×3 (08:44→17:09)
[2017-11-27] MEDS: azaTHIOprine 50 MG TAB ORAL SCH (08:44)
[2017-11-27] MEDS ORDERED: Vancomycin 500mg/D5W 110ml IVPB ONE ×2 (09:00)
--- NOTE | 2017-11-27 10:01 | Consultation ---
DATE OF CONSULTATION: 11/27/2017 ENDOCRINOLOGY CONSULTATION CONSULTING PHYSICIAN: Modesto Jacques M.D. REFERRING PHYSICIAN: Christopher Rosado M.D. REASON FOR CONSULTATION: Diabetes management. HISTORY OF PRESENT ILLNESS: The patient is a 62-year-old male, very well known to me with history of type 1 diabetes with history of failed pancreatic and kidney transplant with past history of elevated blood sugar and diabetic ketoacidosis. The patient presented to the hospital after he was noted to have a fever of 103 in the cardiac rehabilitation custodial facility. I was called to manage diabetes. PAST MEDICAL HISTORY: 1. Chronic kidney disease. 2. Type 1 diabetes. 3. Failed end-stage pancreatic transplant. 4. BPH. 5. Status post suprapubic catheter with neurogenic bladder. 6. Diabetic nephropathy. 7. Left eye blindness. 8. Recurrent urine infection. 9. Hyperparathyroidism. 10. Coronary artery disease, status post PCI. 11. Left eye prosthetic. 12. Dyslipidemia. 13. History of suicide attempt with over insulin ingestion. MEDICATION: Refer to medication reconciliation form. ALLERGIES: Cefepime. SOCIAL HISTORY: No smoking, alcohol, or drug use. Resident of a custodial facility. REVIEW OF SYSTEMS: A 12-point review of systems was performed. The pertinent positives and negatives are as mentioned in the history of present illness. PHYSICAL EXAMINATION: VITAL SIGNS: Blood pressure is 100/60, pulse 70, temperature 98.2, respiratory rate of 18. HEENT: Left eye prosthetic. NECK: No JVD. LUNGS: Clear. HEART: Regular. ABDOMEN: Positive bowel sounds. Soft. EXTREMITIES: No clubbing, cyanosis, or edema. LABORATORY DATA: WBC 5.9, hemoglobin 9.8, hematocrit 30, platelets of 159. Sodium 132, potassium 4.7, chloride 100, bicarb 20, BUN 60, creatinine 4.8, glucose 439. A1c of 6.8, TSH of 2.2. DIAGNOSES: 1. Febrile illness. 2. Renal failure. 3. Diabetes, out of control. PLAN: 1. Start Levemir 8 units twice a day. 2. NovoLog 5 units before meals t.i.d. 3. Continue NovoLog sliding scale. 4. Further adjustment according to blood glucose values. Thank you, Dr. Rosado, for the courtesy of this consultation. Modesto Jacques M.D. DR: NETO JOB#: [id number] CC: ELOY
[2017-11-27 12:00] VITALS: BP 112/74
[2017-11-27] MEDS ORDERED: Sodium Polystyrene Sulfonate 15gm Powder ORAL SCH (12:45)
--- NOTE | 2017-11-27 12:45 | Nephrology Progress Note ---
Assessment/Plan Problem List: (1) Acute on chronic renal failure (2) Anemia in chronic kidney disease (3) Nephropathy, diabetic (4) Uncontrolled diabetes mellitus (5) BPH (benign prostatic hypertrophy) Assessment (1) CKD (chronic kidney disease), stage III, superimposed acute- Cr ethan since last admit- has metabolic acidosis (2) ? Dehydration- (3) type 2 diabetes mellitus (4) BPH (benign prostatic hypertrophy), has supra pubic cath (5) Nephropathy, diabetic (6) History of simultaneous kidney and pancreas transplant (7) h/o UTI (urinary tract infection) (8) Anemia of CKD (9) HyperParathyroidism Plan being treated for sepsis po kayexelate Has suprapubic cath slow hydrate re address dialysis avoid nephrotoxics BP and BS control- monitor renal parameters per ID... Subjective ROS Limited/Unobtainable: No Constitutional: Reports: malaise Objective Objective Last 24 Hour Vital Signs Date Time Temp Pulse Resp B/P (MAP) Pulse Ox O2 Delivery O2 Flow Rate FiO2 11/27/17 08:44 79 144/80 11/27/17 08:00 97.3 79 20 144/80 100 Room Air 97.3 11/27/17 07:58 86 18 Room Air 11/27/17 04:00 98.1 75 17 117/70 98 Room Air 98.1 11/27/17 00:12 97.7 73 16 110/65 99 Room Air 97.7 11/26/17 20:00 97.7 75 20 116/65 96 Room Air 97.7 11/26/17 16:00 97.8 82 20 123/62 96 Room Air 97.8 11/26/17 16:00 81 Intake and Output 11/26/17 11/27/17 19:00 07:00 Intake Total 955 ml 915 ml Output Total 700 ml 800 ml Balance 255 ml 115 ml Intake Oral 240 ml IV Total 955 ml 675 ml Output Urine Total 700 ml 800 ml Laboratory Tests 11/27/17 06:35: White Blood Count 5.4, Red Blood Count 3.09L, Hemoglobin 9.3L, Hematocrit 28.7L , Mean Corpuscular Volume 93, Mean Corpuscular Hemoglobin 30.0, Mean Corpuscular Hemoglobin Concent 32.3, Red Cell Distribution Width 15.1H, Platelet Count 152, Mean Platelet Volume 7.4, Neutrophils (%) (Auto) 65.2, Lymphocytes (%) (Auto) 18.5L, Monocytes (%) (Auto) 12.7H, Eosinophils (%) (Auto ) 2.6, Basophils (%) (Auto) 1.0, Sodium Level 135L, Potassium Level 5.3H, Chloride Level 106, Carbon Dioxide Level 16L, Anion Gap 13, Blood Urea Nitrogen 61H, Creatinine 4.9H, Estimat Glomerular Filtration Rate 12.1, Glucose Level 368H, Calcium Level 8.3L, Phosphorus Level 4.7, Magnesium Level 1.8, Total Bilirubin 0.4, Aspartate Amino Transf (AST/SGOT) 21, Alanine Aminotransferase ( ALT/SGPT) 24, Alkaline Phosphatase 67, Total Protein 6.0L, Albumin 2.3L, Globulin 3.7, Albumin/Globulin Ratio 0.6L, Random Vancomycin Level 13.1 Height (Feet): 5 Height (Inches): 6.00 Weight (Pounds): 160 General Appearance: no apparent distress Respiratory/Chest: decreased breath sounds Abdomen: soft Genitourinary/Rectal: other - supra pubic cath BERT ALONSO November 27, 2017 12:44
--- NOTE | 2017-11-27 15:20 | Internal Med Progress Note ---
Subjective Date of Service: November 27, 2017 Physician Name Glasgow,Jose Attending Physician Christopher Rosado MD Current Medications Medications (Trade) Dose Ordered Sig/Dunia Route PRN Reason Start Time Stop Time Status Last Admin Dose Admin Acetaminophen (Tylenol) 650 mg Q4H PRN ORAL fever (Temp>100.5) 11/26/17 21:29 12/25/17 21:28 Albuterol/ Ipratropium (Albuterol/ Ipratropium) 3 ml Q4H PRN HHN Shortness of Breath 11/26/17 21:30 12/01/17 21:29 Amlodipine Besylate (Norvasc) 5 mg DAILY ORAL 11/27/17 09:00 12/27/17 08:59 11/27/17 08:44 Azathioprine (Imuran) 50 mg DAILY ORAL 11/27/17 09:00 12/27/17 08:59 11/27/17 08:44 Aztreonam 0.5 gm/ Sodium Chloride 55 ml @ 110 mls/hr Q8HR IVPB 11/26/17 22:00 12/02/17 21:59 11/27/17 15:03 Chlorhexidine Gluconate (Eloisa-Hex 2%) 1 applic DAILY@2000 TOPIC 11/27/17 20:00 12/26/17 19:59 Dextrose (Dextrose 50%) 25 ml STAT PRN IV Hypoglycemia BS 60-69mg/dl 11/26/17 21:29 12/26/17 21:28 Dextrose (Dextrose 50%) 25 ml STAT PRN IV Hypoglycemia 11/27/17 07:00 12/27/17 06:59 Dextrose (Dextrose 50%) 50 ml STAT PRN IV Hypoglycemia BS less than 60mg 11/26/17 21:30 12/26/17 21:29 Dextrose (Dextrose 50%) 50 ml STAT PRN IV Hypoglycemia 11/27/17 07:00 12/27/17 06:59 Duloxetine HCl (Cymbalta) 30 mg DAILY ORAL 11/27/17 09:00 12/27/17 08:59 11/27/17 08:43 Heparin Sodium (Porcine) (Heparin 5000 units/ml) 5,000 units EVERY 12 HOURS SUBQ 11/26/17 21:00 12/25/17 20:59 11/27/17 08:42 Insulin Aspart (NovoLOG) BEFORE MEALS AND HS SUBQ 11/26/17 22:00 12/25/17 21:59 11/27/17 12:22 Insulin Aspart (NovoLOG) 5 units NOVOTIAC SUBQ 11/27/17 08:00 12/27/17 07:59 11/27/17 12:22 Insulin Detemir (Levemir) 8 units Q12HR SUBQ 11/27/17 09:00 12/27/17 08:59 11/27/17 08:43 Nitroglycerin (Ntg) 0.4 mg Q 5 MINS PRN SL Prn Chest Pain 11/26/17 21:30 12/25/17 21:29 Ondansetron HCl (Zofran) 4 mg Q6H PRN IVP Nausea & Vomiting 11/26/17 21:30 12/26/17 21:29 Polyethylene Glycol (Miralax) 17 gm DAILYPRN PRN ORAL Constipation 11/26/17 21:31 12/26/17 21:30 Sevelamer Carbonate (Renvela) 800 mg THREE TIMES A DAY ORAL 11/27/17 09:00 12/27/17 08:59 11/27/17 12:23 Sodium Chloride 1,000 ml @ 75 mls/hr [id number] IV 11/26/17 21:29 12/26/17 21:28 11/27/17 10:48 Temazepam (Restoril) 15 mg HSPRN PRN ORAL Insomnia 11/26/17 21:00 12/03/17 20:59 Vancomycin HCl (Vanco rx to dose) 1 ea DAILY PRN MISC . 11/26/17 21:31 12/26/17 21:30 Allergies: Coded Allergies: CEFEPIME (Verified Allergy, Intermediate, Rash, 01/23/13) ROS Limited/Unobtainable: No Constitutional: Reports: no symptoms HEENT: Reports: no symptoms Cardiovascular: Reports: no symptoms Respiratory: Reports: no symptoms Gastrointestinal/Abdominal: Reports: no symptoms Genitourinary: Reports: no symptoms Neurologic/Psychiatric: Reports: no symptoms Subjective 60 YO M admitted with fever, now UTI. Cover for Int Pierre-Dr Rosado. Objective Last Vital Signs Date Time Temp Pulse Resp B/P (MAP) Pulse Ox O2 Delivery O2 Flow Rate FiO2 11/27/17 12:00 97.2 72 20 112/74 100 Room Air 97.2 Laboratory Tests Test 11/27/17 06:35 White Blood Count 5.4 K/UL (4.8-10.8) Red Blood Count 3.09 M/UL (4.70-6.10) L Hemoglobin 9.3 G/DL (14.2-18.0) L Hematocrit 28.7 % (42.0-52.0) L Mean Corpuscular Volume 93 FL (80-99) Mean Corpuscular Hemoglobin 30.0 PG (27.0-31.0) Mean Corpuscular Hemoglobin Concent 32.3 G/DL (32.0-36.0) Red Cell Distribution Width 15.1 % (11.6-14.8) H Platelet Count 152 K/UL (150-450) Mean Platelet Volume 7.4 FL (6.5-10.1) Neutrophils (%) (Auto) 65.2 % (45.0-75.0) Lymphocytes (%) (Auto) 18.5 % (20.0-45.0) L Monocytes (%) (Auto) 12.7 % (1.0-10.0) H Eosinophils (%) (Auto) 2.6 % (0.0-3.0) Basophils (%) (Auto) 1.0 % (0.0-2.0) Sodium Level 135 MMOL/L (136-145) L Potassium Level 5.3 MMOL/L (3.5-5.1) H Chloride Level 106 MMOL/L (98-107) Carbon Dioxide Level 16 MMOL/L (21-32) L Anion Gap 13 mmol/L (5-15) Blood Urea Nitrogen 61 mg/dL (7-18) H Creatinine 4.9 MG/DL (0.55-1.30) H Estimat Glomerular Filtration Rate 12.1 mL/min (>60) Glucose Level 368 MG/DL (74-106) H Calcium Level 8.3 MG/DL (8.5-10.1) L Phosphorus Level 4.7 MG/DL (2.5-4.9) Magnesium Level 1.8 MG/DL (1.8-2.4) Total Bilirubin 0.4 MG/DL (0.2-1.0) Aspartate Amino Transf (AST/SGOT) 21 U/L (15-37) Alanine Aminotransferase (ALT/SGPT) 24 U/L (12-78) Alkaline Phosphatase 67 U/L (46-116) Total Protein 6.0 G/DL (6.4-8.2) L Albumin 2.3 G/DL (3.4-5.0) L Globulin 3.7 g/dL Albumin/Globulin Ratio 0.6 (1.0-2.7) L Random Vancomycin Level 13.1 ug/mL Microbiology Date/Time Source Procedure Growth Status 11/25/17 11:15 Blood Blood Culture - Preliminary NO GROWTH AFTER 24 HOURS Resulted 11/25/17 10:10 Blood Blood Culture - Preliminary NO GROWTH AFTER 24 HOURS Resulted 11/26/17 04:32 Nasopharynx Influenza Types A,B Antigen (NIA) - Final Complete 11/26/17 02:45 Urine,Clean Catch Urine Culture - Preliminary Gram Negative Juan Resulted Intake and Output 11/26/17 11/27/17 19:00 07:00 Intake Total 955 ml 915 ml Output Total 700 ml 800 ml Balance 255 ml 115 ml Intake Oral 240 ml IV Total 955 ml 675 ml Output Urine Total 700 ml 800 ml Objective GENERAL: The patient is awake, responsive, and in no acute distress. HEAD AND NECK: Pupils reactive to light. Extraocular movements intact. Neck was supple. No JVD. 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 LUNGS: Good air entry. No wheezing or rales. HEART: S1, S2. Regular rate and rhythm. No gallops. ABDOMEN: Soft, nondistended, and nontender. Positive bowel sounds. GENITALIA: Normal male organ as well as suprapubic catheter placement. No sign of infection. EXTREMITIES: No cyanosis, clubbing, or edema. NEUROLOGIC: Cranial nerves II through XII grossly intact. Motor is 5/5 in all extremities. Gait is intact. Assessment/Plan Problem List: (1) Fever Assessment & Plan: Resolving on abx (2) BPH (benign prostatic hypertrophy) (3) Uncontrolled diabetes mellitus Assessment & Plan: Continue levemir and novolog (4) UTI (lower urinary tract infection) Assessment & Plan: Gram neg juan. Await urine culture results; Continue vanco and aztreonam (5) Neurogenic bladder (6) Suprapubic catheter (7) Hypercholesteremia (8) HTN (hypertension) Assessment & Plan: Continue amlodipine. (9) CAD (coronary artery disease) (10) CKD (chronic kidney disease), stage III Status: not improved Jose Glasgow MD November 27, 2017 15:20
[2017-11-27] MEDS ORDERED: Tubing IV Secondary IV ONE (15:21)
[2017-11-27 16:00] VITALS: BP 123/64
[2017-11-27 20:00] VITALS: BP 110/66
[2017-11-27] MEDS: Dyna-Hex 2% Top Sol 2oz TOPIC SCH (21:21)
--- NOTE | 2017-11-27 22:54 | General Progress Note ---
Assessment/Plan Assessment/Plan mdd cymbalta 30mg qam provided ro Subjective Date patient seen: November 27, 2017 Neurologic/Psychiatric: Reports: anxiety, depressed, emotional problems Allergies: Coded Allergies: CEFEPIME (Verified Allergy, Intermediate, Rash, 01/23/13) Objective Last 24 Hour Vital Signs Date Time Temp Pulse Resp B/P (MAP) Pulse Ox O2 Delivery O2 Flow Rate FiO2 11/27/17 20:00 97.6 78 20 110/66 98 97.6 11/27/17 16:00 97.2 75 20 123/64 97 Room Air 97.2 11/27/17 12:00 97.2 72 20 112/74 100 Room Air 97.2 11/27/17 08:44 79 144/80 11/27/17 08:00 97.3 79 20 144/80 100 Room Air 97.3 11/27/17 07:58 86 18 Room Air 11/27/17 04:00 98.1 75 17 117/70 98 Room Air 98.1 11/27/17 00:12 97.7 73 16 110/65 99 Room Air 97.7 Intake and Output 11/26/17 11/27/17 19:00 07:00 Intake Total 955 ml 915 ml Output Total 700 ml 800 ml Balance 255 ml 115 ml Intake Oral 240 ml IV Total 955 ml 675 ml Output Urine Total 700 ml 800 ml Laboratory Tests 11/27/17 06:35: White Blood Count 5.4, Red Blood Count 3.09L, Hemoglobin 9.3L, Hematocrit 28.7L , Mean Corpuscular Volume 93, Mean Corpuscular Hemoglobin 30.0, Mean Corpuscular Hemoglobin Concent 32.3, Red Cell Distribution Width 15.1H, Platelet Count 152, Mean Platelet Volume 7.4, Neutrophils (%) (Auto) 65.2, Lymphocytes (%) (Auto) 18.5L, Monocytes (%) (Auto) 12.7H, Eosinophils (%) (Auto ) 2.6, Basophils (%) (Auto) 1.0, Sodium Level 135L, Potassium Level 5.3H, Chloride Level 106, Carbon Dioxide Level 16L, Anion Gap 13, Blood Urea Nitrogen 61H, Creatinine 4.9H, Estimat Glomerular Filtration Rate 12.1, Glucose Level 368H, Calcium Level 8.3L, Phosphorus Level 4.7, Magnesium Level 1.8, Total Bilirubin 0.4, Aspartate Amino Transf (AST/SGOT) 21, Alanine Aminotransferase ( ALT/SGPT) 24, Alkaline Phosphatase 67, Total Protein 6.0L, Albumin 2.3L, Globulin 3.7, Albumin/Globulin Ratio 0.6L, Random Vancomycin Level 13.1 Height (Feet): 5 Height (Inches): 6.00 Weight (Pounds): 160 General Appearance: WD/WN, no apparent distress, alert Neurologic: depressed affect Fatmata Lu M.D. November 27, 2017 22:54
[2017-11-28] VITALS: BP 116/68
[2017-11-28 04:00] VITALS: BP 139/74
[2017-11-28] MEDS: Aztreonam Inj 0.5 GM in NS 55 ML IVPB SCH (05:31)
[2017-11-28] MEDS: NovoLOG Insulin Flexpen SUBQ SCH ×7 (06:07→21:00)
--- NOTE | 2017-11-28 07:08 | General Progress Note ---
Assessment/Plan Problem List: (1) Nephropathy, diabetic ICD Codes: E11.21 - Type 2 diabetes mellitus with diabetic nephropathy SNOMED: 174141832 (2) Hyperparathyroidism ICD Codes: E21.3 - Hyperparathyroidism, unspecified SNOMED: 36356760 (3) ESRD (end stage renal disease) ICD Codes: N18.6 - End stage renal disease SNOMED: 74997496 (4) Diabetes mellitus out of control ICD Codes: E11.65 - Type 2 diabetes mellitus with hyperglycemia SNOMED: 31953508, 797280985 (5) Sepsis ICD Codes: A41.9 - Sepsis, unspecified organism SNOMED: 06623971 Assessment/Plan increase Levemir to 10 units bid continue Novolog 5 units ac tid + NISS Subjective Allergies: Coded Allergies: CEFEPIME (Verified Allergy, Intermediate, Rash, 01/23/13) All Systems: reviewed and negative except above Subjective events noted Objective Last 24 Hour Vital Signs Date Time Temp Pulse Resp B/P (MAP) Pulse Ox O2 Delivery O2 Flow Rate FiO2 11/28/17 04:00 97.7 86 20 139/74 98 97.7 11/28/17 00:00 97.2 77 20 116/68 98 97.2 11/27/17 20:00 97.6 78 20 110/66 98 97.6 11/27/17 16:00 97.2 75 20 123/64 97 Room Air 97.2 11/27/17 12:00 97.2 72 20 112/74 100 Room Air 97.2 11/27/17 08:44 79 144/80 11/27/17 08:00 97.3 79 20 144/80 100 Room Air 97.3 11/27/17 07:58 86 18 Room Air Intake and Output 11/27/17 11/28/17 19:00 07:00 Intake Total 1157 ml 730 ml Output Total 1800 ml 1400 ml Balance -643 ml -670 ml Intake Oral 240 ml IV Total 917 ml 730 ml Output Urine Total 1800 ml 1400 ml Height (Feet): 5 Height (Inches): 6.00 Weight (Pounds): 160 General Appearance: no apparent distress Neck: normal alignment Cardiovascular: normal rate Respiratory/Chest: lungs clear Abdomen: normal bowel sounds Objective Current Medications Medications (Trade) Dose Ordered Sig/Dunia Route PRN Reason Start Time Stop Time Status Last Admin Dose Admin Acetaminophen (Tylenol) 650 mg Q4H PRN ORAL fever (Temp>100.5) 11/26/17 21:29 12/25/17 21:28 Albuterol/ Ipratropium (Albuterol/ Ipratropium) 3 ml Q4H PRN HHN Shortness of Breath 11/26/17 21:30 12/01/17 21:29 Amlodipine Besylate (Norvasc) 5 mg DAILY ORAL 11/27/17 09:00 12/27/17 08:59 11/27/17 08:44 Azathioprine (Imuran) 50 mg DAILY ORAL 11/27/17 09:00 12/27/17 08:59 11/27/17 08:44 Aztreonam 0.5 gm/ Sodium Chloride 55 ml @ 110 mls/hr Q8HR IVPB 11/26/17 22:00 12/02/17 21:59 11/28/17 05:31 Chlorhexidine Gluconate (Eloisa-Hex 2%) 1 applic DAILY@2000 TOPIC 11/27/17 20:00 12/26/17 19:59 11/27/17 21:21 Dextrose (Dextrose 50%) 25 ml STAT PRN IV Hypoglycemia BS 60-69mg/dl 11/26/17 21:29 12/26/17 21:28 Dextrose (Dextrose 50%) 25 ml STAT PRN IV Hypoglycemia 11/27/17 07:00 12/27/17 06:59 Dextrose (Dextrose 50%) 50 ml STAT PRN IV Hypoglycemia BS less than 60mg 11/26/17 21:30 12/26/17 21:29 Dextrose (Dextrose 50%) 50 ml STAT PRN IV Hypoglycemia 11/27/17 07:00 12/27/17 06:59 Duloxetine HCl (Cymbalta) 30 mg DAILY ORAL 11/27/17 09:00 12/27/17 08:59 11/27/17 08:43 Heparin Sodium (Porcine) (Heparin 5000 units/ml) 5,000 units EVERY 12 HOURS SUBQ 11/26/17 21:00 12/25/17 20:59 11/27/17 21:22 Insulin Aspart (NovoLOG) BEFORE MEALS AND HS SUBQ 11/26/17 22:00 12/25/17 21:59 11/28/17 06:07 Insulin Aspart (NovoLOG) 5 units NOVOTIAC SUBQ 11/27/17 08:00 12/27/17 07:59 11/28/17 06:08 Insulin Detemir (Levemir) 8 units Q12HR SUBQ 11/27/17 09:00 12/27/17 08:59 11/27/17 21:23 Nitroglycerin (Ntg) 0.4 mg Q 5 MINS PRN SL Prn Chest Pain 11/26/17 21:30 12/25/17 21:29 Ondansetron HCl (Zofran) 4 mg Q6H PRN IVP Nausea & Vomiting 11/26/17 21:30 12/26/17 21:29 Polyethylene Glycol (Miralax) 17 gm DAILYPRN PRN ORAL Constipation 11/26/17 21:31 12/26/17 21:30 Sevelamer Carbonate (Renvela) 800 mg THREE TIMES A DAY ORAL 11/27/17 09:00 12/27/17 08:59 11/27/17 17:09 Sodium Chloride 1,000 ml @ 75 mls/hr [id number] IV 11/26/17 21:29 12/26/17 21:28 11/28/17 00:16 Temazepam (Restoril) 15 mg HSPRN PRN ORAL Insomnia 11/26/17 21:00 12/03/17 20:59 Vancomycin HCl (Vanco rx to dose) 1 ea DAILY PRN MISC . 11/26/17 21:31 12/26/17 21:30 Item Value Date Time Bedside Blood Glucose 373 mg/dl H 11/28/17 0622 Bedside Blood Glucose 138 mg/dl H 11/27/17 2124 Bedside Blood Glucose 108 mg/dl 11/27/17 1711 Bedside Blood Glucose 305 mg/dl H 11/27/17 1222 Bedside Blood Glucose 291 mg/dl H 11/27/17 1047 MALKA SHERIFF November 28, 2017 07:07
[2017-11-28] MEDS: DULoxetine 30mg cap ORAL SCH (08:19)
[2017-11-28] MEDS: Renvela 800mg Pkt ORAL SCH ×3 (08:19→17:35)
[2017-11-28] MEDS: azaTHIOprine 50 MG TAB ORAL SCH (08:19)
[2017-11-28] MEDS: Heparin 5000 units/ml inj SUBQ SCH ×2 (08:23→21:09)
[2017-11-28 09:00] VITALS: BP 122/62
[2017-11-28] MEDS: Levemir Flexpen SUBQ SCH ×2 (09:26→21:10)
[2017-11-28] MEDS ORDERED: Tubing IV Secondary IV ONE (09:56)
[2017-11-28 10:18] LABS: ANION GAP 14 mmol/L (5-15); BLOOD UREA NITROGEN 60 mg/dL (7-18); CALCIUM 8.2 MG/DL (8.5-10.1); CARBON DIOXIDE 17 MMOL/L (21-32); CHLORIDE 105 MMOL/L (98-107); CREATININE 4.6 MG/DL (0.55-1.30); POTASSIUM 4.8 MMOL/L (3.5-5.1); SODIUM 136 MMOL/L (136-145)
[2017-11-28 10:25] LABS: BASOPHILS % (AUTO) 0.4 % (0.0-2.0); EOSINOPHILS % (AUTO) 1.5 % (0.0-3.0); HEMATOCRIT 31.7 % (42.0-52.0); HEMOGLOBIN 10.3 G/DL (14.2-18.0); LYMPHOCYTES % (AUTO) 17.8 % (20.0-45.0); MEAN CORPUSCULAR VOLUME 95 FL (80-99); NEUTROPHILS % (AUTO) 75.3 % (45.0-75.0); PLATELET COUNT 196 K/UL (150-450); RED BLOOD COUNT 3.35 M/UL (4.70-6.10); RED CELL DISTRIBUTION WIDTH 15.9 % (11.6-14.8); WHITE BLOOD COUNT 7.5 K/UL (4.8-10.8)
--- NOTE | 2017-11-28 10:50 | Pulmonology Progress Note ---
Assessment/Plan Assessment/Plan ASSESSMENT Fever, possible sepsis UTI with Proteus Acute renal failure on chronic kidney disease stage III Diabetic nephropathy History of simultaneous kidney and pancreas transplant Hypertension Coronary artery disease Diabetes mellitus with history of DKA Anemia BPH COPD PLAN of care [facility] floor ( from tele) Troponin 2 negative EKG no acute ischemic changes IV hydration and empiric antibiotics fever and leukocytosis resolved influenza screen test negative,blood culture preliminary negative urine cx + Proteus abx as pr ID recs, follows mortgage operations manager follows monitor renal parameters, electrolytes , avoid nephrotoxic, correct electrolytes as needed. if no improvement in renal parameters, may readdress hemodialysis as per mortgage operations manager, creat started this am to trend down s/p catheter care Supplemental oxygen as needed to keep pulse oximetry above 92% pulmonary toilet as needed chest x-ray no acute cardiopulmonary pathology blood pressure management with calcium channel annie and optimize further as needed blood sugar management with long acting Levemir and short-acting pre-meal NovoLog,sliding scale insulin as needed sediment remediation consultant follows DVT prophylaxis bowel regimen case discussed and evaluated by supervising physician Subjective Allergies: Coded Allergies: CEFEPIME (Verified Allergy, Intermediate, Rash, 01/23/13) Subjective creat started slowly trending down-4.6 this am denies chest pain, SOB on RA pulse ox stable BS not controlled, Objective Last 24 Hour Vital Signs Date Time Temp Pulse Resp B/P (MAP) Pulse Ox O2 Delivery O2 Flow Rate FiO2 11/28/17 08:23 77 122/62 11/28/17 04:00 97.7 86 20 139/74 98 97.7 11/28/17 00:00 97.2 77 20 116/68 98 97.2 11/27/17 20:00 97.6 78 20 110/66 98 97.6 11/27/17 16:00 97.2 75 20 123/64 97 Room Air 97.2 11/27/17 12:00 97.2 72 20 112/74 100 Room Air 97.2 Intake and Output 11/27/17 11/28/17 19:00 07:00 Intake Total 1157 ml 860 ml Output Total 1800 ml 1400 ml Balance -643 ml -540 ml Intake Oral 240 ml IV Total 917 ml 860 ml Output Urine Total 1800 ml 1400 ml Objective General Appearance: no acute distress HEENT: normocephalic, atraumatic Respiratory/Chest: lungs clear, no respiratory distress, no accessory muscle use Cardiovascular: normal peripheral pulses, normal rate, no JVD Abdomen: normal bowel sounds, soft, non tender, non distended Genitourinary: other - s/p catheter Extremities: no edema Neurologic/Psychiatric: alert, responsive, normal mood/affect Musculoskeletal: normal muscle bulk Microbiology Date/Time Source Procedure Growth Status 11/25/17 11:15 Blood Blood Culture - Preliminary NO GROWTH AFTER 48 HOURS Resulted 11/26/17 04:32 Nasopharynx Influenza Types A,B Antigen (NIA) - Final Complete 11/26/17 02:45 Urine,Clean Catch Urine Culture - Preliminary Proteus Mirabilis Resulted Laboratory Tests 11/28/17 08:45: White Blood Count 7.5, Red Blood Count 3.35L, Hemoglobin 10.3L, Hematocrit 31.7L , Mean Corpuscular Volume 95, Mean Corpuscular Hemoglobin 30.6, Mean Corpuscular Hemoglobin Concent 32.4, Red Cell Distribution Width 15.9H, Platelet Count 196, Mean Platelet Volume 7.8, Neutrophils (%) (Auto) 75.3H, Lymphocytes (%) (Auto) 17.8L, Monocytes (%) (Auto) 5.0, Eosinophils (%) (Auto) 1.5, Basophils (%) (Auto) 0.4, Sodium Level 136, Potassium Level 4.8, Chloride Level 105, Carbon Dioxide Level 17L, Anion Gap 14, Blood Urea Nitrogen 60H, Creatinine 4.6H, Estimat Glomerular Filtration Rate 13.0, Glucose Level 405H, Calcium Level 8.2L Current Medications Medications (Trade) Dose Ordered Sig/Dunia Route PRN Reason Start Time Stop Time Status Last Admin Dose Admin Acetaminophen (Tylenol) 650 mg Q4H PRN ORAL fever (Temp>100.5) 11/26/17 21:29 12/25/17 21:28 Albuterol/ Ipratropium (Albuterol/ Ipratropium) 3 ml Q4H PRN HHN Shortness of Breath 11/26/17 21:30 12/01/17 21:29 Amlodipine Besylate (Norvasc) 5 mg DAILY ORAL 11/27/17 09:00 12/27/17 08:59 11/28/17 08:23 Azathioprine (Imuran) 50 mg DAILY ORAL 11/27/17 09:00 12/27/17 08:59 11/28/17 08:19 Aztreonam 0.5 gm/ Sodium Chloride 55 ml @ 110 mls/hr Q8HR IVPB 11/26/17 22:00 12/02/17 21:59 11/28/17 05:31 Chlorhexidine Gluconate (Eloisa-Hex 2%) 1 applic DAILY@2000 TOPIC 11/27/17 20:00 12/26/17 19:59 11/27/17 21:21 Dextrose (Dextrose 50%) 25 ml STAT PRN IV Hypoglycemia BS 60-69mg/dl 11/26/17 21:29 12/26/17 21:28 Dextrose (Dextrose 50%) 25 ml STAT PRN IV Hypoglycemia 11/27/17 07:00 12/27/17 06:59 Dextrose (Dextrose 50%) 50 ml STAT PRN IV Hypoglycemia BS less than 60mg 11/26/17 21:30 12/26/17 21:29 Dextrose (Dextrose 50%) 50 ml STAT PRN IV Hypoglycemia 11/27/17 07:00 12/27/17 06:59 Duloxetine HCl (Cymbalta) 30 mg DAILY ORAL 11/27/17 09:00 12/27/17 08:59 11/28/17 08:19 Heparin Sodium (Porcine) (Heparin 5000 units/ml) 5,000 units EVERY 12 HOURS SUBQ 11/26/17 21:00 12/25/17 20:59 11/28/17 08:23 Insulin Aspart (NovoLOG) BEFORE MEALS AND HS SUBQ 11/26/17 22:00 12/25/17 21:59 11/28/17 06:07 Insulin Aspart (NovoLOG) 5 units NOVOTIAC SUBQ 11/27/17 08:00 12/27/17 07:59 11/28/17 06:08 Insulin Detemir (Levemir) 10 units Q12HR SUBQ 11/28/17 09:00 12/27/17 08:59 11/28/17 09:26 Nitroglycerin (Ntg) 0.4 mg Q 5 MINS PRN SL Prn Chest Pain 11/26/17 21:30 12/25/17 21:29 Ondansetron HCl (Zofran) 4 mg Q6H PRN IVP Nausea & Vomiting 11/26/17 21:30 12/26/17 21:29 Polyethylene Glycol (Miralax) 17 gm DAILYPRN PRN ORAL Constipation 11/26/17 21:31 12/26/17 21:30 Sevelamer Carbonate (Renvela) 800 mg THREE TIMES A DAY ORAL 11/27/17 09:00 12/27/17 08:59 11/28/17 08:19 Sodium Chloride 1,000 ml @ 75 mls/hr [id number] IV 11/26/17 21:29 12/26/17 21:28 11/28/17 00:16 Temazepam (Restoril) 15 mg HSPRN PRN ORAL Insomnia 11/26/17 21:00 12/03/17 20:59 Vancomycin HCl (Vanco rx to dose) 1 ea DAILY PRN MISC . 11/26/17 21:31 12/26/17 21:30 Catherine Griffin NP November 28, 2017 10:50
[2017-11-28 12:00] VITALS: BP 117/83
[2017-11-28] MEDS: NS IVPB SCH (13:33)
[2017-11-28] MEDS: ERTAPENEM IVPB SCH (13:33)
--- NOTE | 2017-11-28 14:59 | Internal Med Progress Note ---
Subjective Date of Service: November 28, 2017 Physician Name GlasgowJose aguilar Attending Physician Christopher Rosado MD Current Medications Medications (Trade) Dose Ordered Sig/Dunia Route PRN Reason Start Time Stop Time Status Last Admin Dose Admin Acetaminophen (Tylenol) 650 mg Q4H PRN ORAL fever (Temp>100.5) 11/26/17 21:29 12/25/17 21:28 Albuterol/ Ipratropium (Albuterol/ Ipratropium) 3 ml Q4H PRN HHN Shortness of Breath 11/26/17 21:30 12/01/17 21:29 Amlodipine Besylate (Norvasc) 5 mg DAILY ORAL 11/27/17 09:00 12/27/17 08:59 11/28/17 08:23 Azathioprine (Imuran) 50 mg DAILY ORAL 11/27/17 09:00 12/27/17 08:59 11/28/17 08:19 Chlorhexidine Gluconate (Eloisa-Hex 2%) 1 applic DAILY@2000 TOPIC 11/27/17 20:00 12/26/17 19:59 11/27/17 21:21 Dextrose (Dextrose 50%) 25 ml STAT PRN IV Hypoglycemia 11/27/17 07:00 12/27/17 06:59 Dextrose (Dextrose 50%) 50 ml STAT PRN IV Hypoglycemia BS less than 60mg 11/26/17 21:30 12/26/17 21:29 Duloxetine HCl (Cymbalta) 30 mg DAILY ORAL 11/27/17 09:00 12/27/17 08:59 11/28/17 08:19 Ertapenem 0.5 gm/ Sodium Chloride 110 ml @ 220 mls/hr Q24H IVPB 11/28/17 13:00 12/03/17 12:59 11/28/17 13:33 Heparin Sodium (Porcine) (Heparin 5000 units/ml) 5,000 units EVERY 12 HOURS SUBQ 11/26/17 21:00 12/25/17 20:59 11/28/17 08:23 Insulin Aspart (NovoLOG) BEFORE MEALS AND HS SUBQ 11/26/17 22:00 12/25/17 21:59 11/28/17 11:39 Insulin Aspart (NovoLOG) 5 units NOVOTIAC SUBQ 11/27/17 08:00 12/27/17 07:59 11/28/17 11:40 Insulin Detemir (Levemir) 10 units Q12HR SUBQ 11/28/17 09:00 12/27/17 08:59 11/28/17 09:26 Nitroglycerin (Ntg) 0.4 mg Q 5 MINS PRN SL Prn Chest Pain 11/26/17 21:30 12/25/17 21:29 Ondansetron HCl (Zofran) 4 mg Q6H PRN IVP Nausea & Vomiting 11/26/17 21:30 12/26/17 21:29 Polyethylene Glycol (Miralax) 17 gm DAILYPRN PRN ORAL Constipation 11/26/17 21:31 12/26/17 21:30 Sevelamer Carbonate (Renvela) 800 mg THREE TIMES A DAY ORAL 11/27/17 09:00 12/27/17 08:59 11/28/17 13:34 Sodium Chloride 1,000 ml @ 75 mls/hr [id number] IV 11/26/17 21:29 12/26/17 21:28 11/28/17 13:33 Temazepam (Restoril) 15 mg HSPRN PRN ORAL Insomnia 11/26/17 21:00 12/03/17 20:59 Vancomycin HCl (Vanco rx to dose) 1 ea DAILY PRN MISC . 11/26/17 21:31 12/26/17 21:30 Allergies: Coded Allergies: CEFEPIME (Verified Allergy, Intermediate, Rash, 01/23/13) ROS Limited/Unobtainable: No Constitutional: Reports: no symptoms HEENT: Reports: no symptoms Cardiovascular: Reports: no symptoms Respiratory: Reports: no symptoms Gastrointestinal/Abdominal: Reports: no symptoms Genitourinary: Reports: no symptoms Neurologic/Psychiatric: Reports: no symptoms Subjective 60 YO M admitted with fever, now UTI. Cover for [facility]-Dr Rosado. Objective Last Vital Signs Date Time Temp Pulse Resp B/P (MAP) Pulse Ox O2 Delivery O2 Flow Rate FiO2 11/28/17 12:00 97.3 71 20 117/83 99 Room Air 97.3 Laboratory Tests Test 11/28/17 08:45 White Blood Count 7.5 K/UL (4.8-10.8) Red Blood Count 3.35 M/UL (4.70-6.10) L Hemoglobin 10.3 G/DL (14.2-18.0) L Hematocrit 31.7 % (42.0-52.0) L Mean Corpuscular Volume 95 FL (80-99) Mean Corpuscular Hemoglobin 30.6 PG (27.0-31.0) Mean Corpuscular Hemoglobin Concent 32.4 G/DL (32.0-36.0) Red Cell Distribution Width 15.9 % (11.6-14.8) H Platelet Count 196 K/UL (150-450) Mean Platelet Volume 7.8 FL (6.5-10.1) Neutrophils (%) (Auto) 75.3 % (45.0-75.0) H Lymphocytes (%) (Auto) 17.8 % (20.0-45.0) L Monocytes (%) (Auto) 5.0 % (1.0-10.0) Eosinophils (%) (Auto) 1.5 % (0.0-3.0) Basophils (%) (Auto) 0.4 % (0.0-2.0) Sodium Level 136 MMOL/L (136-145) Potassium Level 4.8 MMOL/L (3.5-5.1) Chloride Level 105 MMOL/L (98-107) Carbon Dioxide Level 17 MMOL/L (21-32) L Anion Gap 14 mmol/L (5-15) Blood Urea Nitrogen 60 mg/dL (7-18) H Creatinine 4.6 MG/DL (0.55-1.30) H Estimat Glomerular Filtration Rate 13.0 mL/min (>60) Glucose Level 405 MG/DL (74-106) H Calcium Level 8.2 MG/DL (8.5-10.1) L Microbiology Date/Time Source Procedure Growth Status 11/26/17 04:32 Nasopharynx Influenza Types A,B Antigen (NIA) - Final Complete 11/26/17 02:45 Urine,Clean Catch Urine Culture - Preliminary Proteus Mirabilis Resulted Intake and Output 11/27/17 11/28/17 19:00 07:00 Intake Total 1157 ml 860 ml Output Total 1800 ml 1400 ml Balance -643 ml -540 ml Intake Oral 240 ml IV Total 917 ml 860 ml Output Urine Total 1800 ml 1400 ml Objective GENERAL: The patient is awake, responsive, and in no acute distress. HEAD AND NECK: Pupils reactive to light. Extraocular movements intact. Neck was supple. No JVD. 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 LUNGS: Good air entry. No wheezing or rales. HEART: S1, S2. Regular rate and rhythm. No gallops. ABDOMEN: Soft, nondistended, and nontender. Positive bowel sounds. GENITALIA: Normal male organ as well as suprapubic catheter placement. No sign of infection. EXTREMITIES: No cyanosis, clubbing, or edema. NEUROLOGIC: Cranial nerves II through XII grossly intact. Motor is 5/5 in all extremities. Gait is intact. Assessment/Plan Problem List: (1) Fever Assessment & Plan: Resolving on abx (2) BPH (benign prostatic hypertrophy) (3) Uncontrolled diabetes mellitus Assessment & Plan: Continue levemir and novolog (4) UTI (lower urinary tract infection) Assessment & Plan: Proteus Mirabilis. Continue aztreonam Per ID (5) Neurogenic bladder (6) Suprapubic catheter (7) Hypercholesteremia (8) HTN (hypertension) Assessment & Plan: Continue amlodipine. (9) CAD (coronary artery disease) (10) CKD (chronic kidney disease), stage III Status: not improved Jose Glasgow MD November 28, 2017 14:59
[2017-11-28 16:00] VITALS: BP 145/77
--- NOTE | 2017-11-28 19:23 | Nephrology Progress Note ---
Assessment/Plan Problem List: (1) Acute on chronic renal failure (2) Anemia in chronic kidney disease (3) Nephropathy, diabetic (4) Uncontrolled diabetes mellitus (5) BPH (benign prostatic hypertrophy) Assessment (1) CKD (chronic kidney disease), stage III, superimposed acute- Cr ethan since last admit- has metabolic acidosis (2) ? Dehydration- (3) type 2 diabetes mellitus (4) BPH (benign prostatic hypertrophy), has supra pubic cath (5) Nephropathy, diabetic (6) History of simultaneous kidney and pancreas transplant (7) h/o UTI (urinary tract infection) (8) Anemia of CKD (9) HyperParathyroidism Plan being treated for sepsis po kayexelate Has suprapubic cath slow hydrate re address dialysis avoid nephrotoxics BP and BS control- monitor renal parameters per ID... Subjective ROS Limited/Unobtainable: No Constitutional: Reports: malaise Objective Objective Last 24 Hour Vital Signs Date Time Temp Pulse Resp B/P (MAP) Pulse Ox O2 Delivery O2 Flow Rate FiO2 11/28/17 16:00 97.3 75 20 145/77 100 Room Air 97.3 11/28/17 12:00 97.3 71 20 117/83 99 Room Air 97.3 11/28/17 09:00 97.2 77 20 122/62 98 Room Air 97.2 11/28/17 08:23 77 122/62 11/28/17 04:00 97.7 86 20 139/74 98 97.7 11/28/17 00:00 97.2 77 20 116/68 98 97.2 11/27/17 20:00 97.6 78 20 110/66 98 97.6 Intake and Output 11/27/17 11/28/17 19:00 07:00 Intake Total 1157 ml 860 ml Output Total 1800 ml 1400 ml Balance -643 ml -540 ml Intake Oral 240 ml IV Total 917 ml 860 ml Output Urine Total 1800 ml 1400 ml Laboratory Tests 11/28/17 08:45: White Blood Count 7.5, Red Blood Count 3.35L, Hemoglobin 10.3L, Hematocrit 31.7L , Mean Corpuscular Volume 95, Mean Corpuscular Hemoglobin 30.6, Mean Corpuscular Hemoglobin Concent 32.4, Red Cell Distribution Width 15.9H, Platelet Count 196, Mean Platelet Volume 7.8, Neutrophils (%) (Auto) 75.3H, Lymphocytes (%) (Auto) 17.8L, Monocytes (%) (Auto) 5.0, Eosinophils (%) (Auto) 1.5, Basophils (%) (Auto) 0.4, Sodium Level 136, Potassium Level 4.8, Chloride Level 105, Carbon Dioxide Level 17L, Anion Gap 14, Blood Urea Nitrogen 60H, Creatinine 4.6H, Estimat Glomerular Filtration Rate 13.0, Glucose Level 405H, Calcium Level 8.2L Height (Feet): 5 Height (Inches): 6.00 Weight (Pounds): 160 General Appearance: no apparent distress Objective no change BERT ALONSO November 28, 2017 19:23
[2017-11-28 20:00] VITALS: BP 121/68
[2017-11-28] MEDS: Dyna-Hex 2% Top Sol 2oz TOPIC SCH (21:08)
[2017-11-29] VITALS: BP 130/75
[2017-11-29 04:00] VITALS: BP 148/82
[2017-11-29] MEDS: NovoLOG Insulin Flexpen SUBQ SCH ×6 (06:08→17:17)
--- NOTE | 2017-11-29 06:27 | General Progress Note ---
Assessment/Plan Problem List: (1) Nephropathy, diabetic ICD Codes: E11.21 - Type 2 diabetes mellitus with diabetic nephropathy SNOMED: 306014109 (2) Hyperparathyroidism ICD Codes: E21.3 - Hyperparathyroidism, unspecified SNOMED: 85949227 (3) ESRD (end stage renal disease) ICD Codes: N18.6 - End stage renal disease SNOMED: 44793875 (4) Diabetes mellitus out of control ICD Codes: E11.65 - Type 2 diabetes mellitus with hyperglycemia SNOMED: 49290738, 449391553 (5) Sepsis ICD Codes: A41.9 - Sepsis, unspecified organism SNOMED: 42628568 Assessment/Plan continue Levemir 10 units bid continue Novolog 5 units ac tid + NISS Subjective Allergies: Coded Allergies: CEFEPIME (Verified Allergy, Intermediate, Rash, 01/23/13) All Systems: reviewed and negative except above Subjective events noted Objective Last 24 Hour Vital Signs Date Time Temp Pulse Resp B/P (MAP) Pulse Ox O2 Delivery O2 Flow Rate FiO2 11/29/17 04:00 98.0 72 20 148/82 100 98.0 11/29/17 00:00 97.8 77 19 130/75 99 97.8 11/28/17 20:00 97.8 64 20 121/68 100 97.8 11/28/17 16:00 97.3 75 20 145/77 100 Room Air 97.3 11/28/17 12:00 97.3 71 20 117/83 99 Room Air 97.3 11/28/17 09:00 97.2 77 20 122/62 98 Room Air 97.2 11/28/17 08:23 77 122/62 Intake and Output 11/28/17 11/29/17 19:00 07:00 Intake Total 310 ml 675 ml Output Total 2000 ml Balance -1690 ml 675 ml Intake Oral 160 ml IV Total 150 ml 675 ml Output Urine Total 2000 ml Laboratory Tests 11/28/17 08:45: White Blood Count 7.5, Red Blood Count 3.35L, Hemoglobin 10.3L, Hematocrit 31.7L , Mean Corpuscular Volume 95, Mean Corpuscular Hemoglobin 30.6, Mean Corpuscular Hemoglobin Concent 32.4, Red Cell Distribution Width 15.9H, Platelet Count 196, Mean Platelet Volume 7.8, Neutrophils (%) (Auto) 75.3H, Lymphocytes (%) (Auto) 17.8L, Monocytes (%) (Auto) 5.0, Eosinophils (%) (Auto) 1.5, Basophils (%) (Auto) 0.4, Sodium Level 136, Potassium Level 4.8, Chloride Level 105, Carbon Dioxide Level 17L, Anion Gap 14, Blood Urea Nitrogen 60H, Creatinine 4.6H, Estimat Glomerular Filtration Rate 13.0, Glucose Level 405H, Calcium Level 8.2L Height (Feet): 5 Height (Inches): 6.00 Weight (Pounds): 160 General Appearance: no apparent distress Neck: normal alignment Cardiovascular: normal rate Respiratory/Chest: lungs clear Abdomen: normal bowel sounds Objective Current Medications Medications (Trade) Dose Ordered Sig/Dunia Route PRN Reason Start Time Stop Time Status Last Admin Dose Admin Acetaminophen (Tylenol) 650 mg Q4H PRN ORAL fever (Temp>100.5) 11/26/17 21:29 12/25/17 21:28 Albuterol/ Ipratropium (Albuterol/ Ipratropium) 3 ml Q4H PRN HHN Shortness of Breath 11/26/17 21:30 12/01/17 21:29 Amlodipine Besylate (Norvasc) 5 mg DAILY ORAL 11/27/17 09:00 12/27/17 08:59 11/28/17 08:23 Azathioprine (Imuran) 50 mg DAILY ORAL 11/27/17 09:00 12/27/17 08:59 11/28/17 08:19 Chlorhexidine Gluconate (Eloisa-Hex 2%) 1 applic DAILY@2000 TOPIC 11/27/17 20:00 12/26/17 19:59 11/28/17 21:08 Dextrose (Dextrose 50%) 25 ml STAT PRN IV Hypoglycemia 11/27/17 07:00 12/27/17 06:59 Dextrose (Dextrose 50%) 50 ml STAT PRN IV Hypoglycemia BS less than 60mg 11/26/17 21:30 12/26/17 21:29 Duloxetine HCl (Cymbalta) 30 mg DAILY ORAL 11/27/17 09:00 12/27/17 08:59 11/28/17 08:19 Ertapenem 0.5 gm/ Sodium Chloride 110 ml @ 220 mls/hr Q24H IVPB 11/28/17 13:00 12/03/17 12:59 11/28/17 13:33 Heparin Sodium (Porcine) (Heparin 5000 units/ml) 5,000 units EVERY 12 HOURS SUBQ 11/26/17 21:00 12/25/17 20:59 11/28/17 21:09 Insulin Aspart (NovoLOG) BEFORE MEALS AND HS SUBQ 11/26/17 22:00 12/25/17 21:59 11/29/17 06:08 Insulin Aspart (NovoLOG) 5 units NOVOTIAC SUBQ 11/27/17 08:00 12/27/17 07:59 11/29/17 06:09 Insulin Detemir (Levemir) 10 units Q12HR SUBQ 11/28/17 09:00 12/27/17 08:59 11/28/17 21:10 Nitroglycerin (Ntg) 0.4 mg Q 5 MINS PRN SL Prn Chest Pain 11/26/17 21:30 12/25/17 21:29 Ondansetron HCl (Zofran) 4 mg Q6H PRN IVP Nausea & Vomiting 11/26/17 21:30 12/26/17 21:29 Polyethylene Glycol (Miralax) 17 gm DAILYPRN PRN ORAL Constipation 11/26/17 21:31 12/26/17 21:30 Sevelamer Carbonate (Renvela) 800 mg THREE TIMES A DAY ORAL 11/27/17 09:00 12/27/17 08:59 11/28/17 17:35 Sodium Chloride 1,000 ml @ 75 mls/hr [id number] IV 11/26/17 21:29 12/26/17 21:28 11/29/17 02:36 Temazepam (Restoril) 15 mg HSPRN PRN ORAL Insomnia 11/26/17 21:00 12/03/17 20:59 Vancomycin HCl (Vanco rx to dose) 1 ea DAILY PRN MISC . 11/26/17 21:31 12/26/17 21:30 Item Value Date Time Bedside Blood Glucose 287 mg/dl H 11/29/17 0609 Bedside Blood Glucose 86 mg/dl 11/28/17 2110 Bedside Blood Glucose 106 mg/dl 11/28/17 1735 Bedside Blood Glucose 331 mg/dl H 11/28/17 1140 Bedside Blood Glucose 373 mg/dl H 11/28/17 0926 Bedside Blood Glucose 373 mg/dl H 11/28/17 0622 MALKA SHERIFF November 29, 2017 06:27
[2017-11-29 07:56] VITALS: BP 130/77
[2017-11-29 08:24] LABS: BASOPHILS % (AUTO) 0.7 % (0.0-2.0); EOSINOPHILS % (AUTO) 3.3 % (0.0-3.0); HEMATOCRIT 32.7 % (42.0-52.0); HEMOGLOBIN 10.4 G/DL (14.2-18.0); LYMPHOCYTES % (AUTO) 27.3 % (20.0-45.0); MEAN CORPUSCULAR VOLUME 94 FL (80-99); MONOCYTES % (AUTO) 5.1 % (1.0-10.0); NEUTROPHILS % (AUTO) 63.7 % (45.0-75.0); PLATELET COUNT 183 K/UL (150-450); RED BLOOD COUNT 3.46 M/UL (4.70-6.10); RED CELL DISTRIBUTION WIDTH 15.7 % (11.6-14.8); WHITE BLOOD COUNT 5.5 K/UL (4.8-10.8)
[2017-11-29 08:43] LABS: ANION GAP 16 mmol/L (5-15); BLOOD UREA NITROGEN 57 mg/dL (7-18); CALCIUM 8.3 MG/DL (8.5-10.1); CARBON DIOXIDE 12 MMOL/L (21-32); CHLORIDE 110 MMOL/L (98-107); CREATININE 4.3 MG/DL (0.55-1.30); SODIUM 138 MMOL/L (136-145)
[2017-11-29 09:01] LABS: ALANINE AMINOTRANSFERASE 21 U/L (12-78); ALBUMIN 2.7 G/DL (3.4-5.0); ALKALINE PHOSPHATASE 78 U/L (46-116); ASPARTATE AMINO TRANSFERASE 18 U/L (15-37); BILIRUBIN,DIRECT 0.1 MG/DL (0.0-0.3); BILIRUBIN,TOTAL 0.3 MG/DL (0.2-1.0); PHOSPHORUS 5.2 MG/DL (2.5-4.9)
[2017-11-29] MEDS: azaTHIOprine 50 MG TAB ORAL SCH (09:06)
[2017-11-29] MEDS: Renvela 800mg Pkt ORAL SCH ×3 (09:06→17:16)
[2017-11-29] MEDS: DULoxetine 30mg cap ORAL SCH (09:06)
[2017-11-29] MEDS: Heparin 5000 units/ml inj SUBQ SCH (09:11)
[2017-11-29] MEDS: Levemir Flexpen SUBQ SCH (09:24)
--- NOTE | 2017-11-29 10:37 | Internal Med Progress Note ---
Subjective Date of Service: November 29, 2017 Physician Name GlasgowJose aguilar Attending Physician Christopher Rosado MD Current Medications Medications (Trade) Dose Ordered Sig/Dunia Route PRN Reason Start Time Stop Time Status Last Admin Dose Admin Acetaminophen (Tylenol) 650 mg Q4H PRN ORAL fever (Temp>100.5) 11/26/17 21:29 12/25/17 21:28 Albuterol/ Ipratropium (Albuterol/ Ipratropium) 3 ml Q4H PRN HHN Shortness of Breath 11/26/17 21:30 12/01/17 21:29 Amlodipine Besylate (Norvasc) 5 mg DAILY ORAL 11/27/17 09:00 12/27/17 08:59 11/29/17 09:06 Azathioprine (Imuran) 50 mg DAILY ORAL 11/27/17 09:00 12/27/17 08:59 11/29/17 09:06 Chlorhexidine Gluconate (Eloisa-Hex 2%) 1 applic DAILY@2000 TOPIC 11/27/17 20:00 12/26/17 19:59 11/28/17 21:08 Dextrose (Dextrose 50%) 25 ml STAT PRN IV Hypoglycemia 11/27/17 07:00 12/27/17 06:59 Dextrose (Dextrose 50%) 50 ml STAT PRN IV Hypoglycemia BS less than 60mg 11/26/17 21:30 12/26/17 21:29 Duloxetine HCl (Cymbalta) 30 mg DAILY ORAL 11/27/17 09:00 12/27/17 08:59 11/29/17 09:06 Ertapenem 0.5 gm/ Sodium Chloride 110 ml @ 220 mls/hr Q24H IVPB 11/28/17 13:00 12/03/17 12:59 11/28/17 13:33 Heparin Sodium (Porcine) (Heparin 5000 units/ml) 5,000 units EVERY 12 HOURS SUBQ 11/26/17 21:00 12/25/17 20:59 11/29/17 09:11 Insulin Aspart (NovoLOG) BEFORE MEALS AND HS SUBQ 11/26/17 22:00 12/25/17 21:59 11/29/17 06:08 Insulin Aspart (NovoLOG) 5 units NOVOTIAC SUBQ 11/27/17 08:00 12/27/17 07:59 11/29/17 06:09 Insulin Detemir (Levemir) 10 units Q12HR SUBQ 11/28/17 09:00 12/27/17 08:59 11/29/17 09:24 Nitroglycerin (Ntg) 0.4 mg Q 5 MINS PRN SL Prn Chest Pain 11/26/17 21:30 12/25/17 21:29 Ondansetron HCl (Zofran) 4 mg Q6H PRN IVP Nausea & Vomiting 11/26/17 21:30 12/26/17 21:29 Polyethylene Glycol (Miralax) 17 gm DAILYPRN PRN ORAL Constipation 11/26/17 21:31 12/26/17 21:30 Sevelamer Carbonate (Renvela) 800 mg THREE TIMES A DAY ORAL 11/27/17 09:00 12/27/17 08:59 11/29/17 09:06 Sodium Chloride 1,000 ml @ 75 mls/hr [id number] IV 11/26/17 21:29 12/26/17 21:28 11/29/17 02:36 Temazepam (Restoril) 15 mg HSPRN PRN ORAL Insomnia 11/26/17 21:00 12/03/17 20:59 Vancomycin HCl (Vanco rx to dose) 1 ea DAILY PRN MISC . 11/26/17 21:31 12/26/17 21:30 Vancomycin/Sodium Chloride 250 ml @ 166.667 mls/hr Q48H IVPB 11/29/17 11:00 12/04/17 10:59 Allergies: Coded Allergies: CEFEPIME (Verified Allergy, Intermediate, Rash, 01/23/13) ROS Limited/Unobtainable: No Constitutional: Reports: no symptoms HEENT: Reports: no symptoms Cardiovascular: Reports: no symptoms Respiratory: Reports: no symptoms Gastrointestinal/Abdominal: Reports: no symptoms Genitourinary: Reports: no symptoms Neurologic/Psychiatric: Reports: no symptoms Subjective 60 YO M admitted with fever, now UTI. Cover for Int Med-Dr Rosado. Objective Last Vital Signs Date Time Temp Pulse Resp B/P (MAP) Pulse Ox O2 Delivery O2 Flow Rate FiO2 11/29/17 09:06 95 130/77 11/29/17 07:56 97.6 20 97 Room Air 97.6 Laboratory Tests Test 11/29/17 06:45 White Blood Count 5.5 K/UL (4.8-10.8) Red Blood Count 3.46 M/UL (4.70-6.10) L Hemoglobin 10.4 G/DL (14.2-18.0) L Hematocrit 32.7 % (42.0-52.0) L Mean Corpuscular Volume 94 FL (80-99) Mean Corpuscular Hemoglobin 30.1 PG (27.0-31.0) Mean Corpuscular Hemoglobin Concent 31.9 G/DL (32.0-36.0) L Red Cell Distribution Width 15.7 % (11.6-14.8) H Platelet Count 183 K/UL (150-450) Mean Platelet Volume 7.0 FL (6.5-10.1) Neutrophils (%) (Auto) 63.7 % (45.0-75.0) Lymphocytes (%) (Auto) 27.3 % (20.0-45.0) Monocytes (%) (Auto) 5.1 % (1.0-10.0) Eosinophils (%) (Auto) 3.3 % (0.0-3.0) H Basophils (%) (Auto) 0.7 % (0.0-2.0) Sodium Level 138 MMOL/L (136-145) Potassium Level 5.0 MMOL/L (3.5-5.1) Chloride Level 110 MMOL/L (98-107) H Carbon Dioxide Level 12 MMOL/L (21-32) L Anion Gap 16 mmol/L (5-15) H Blood Urea Nitrogen 57 mg/dL (7-18) H Creatinine 4.3 MG/DL (0.55-1.30) H Estimat Glomerular Filtration Rate 14.0 mL/min (>60) Glucose Level 271 MG/DL (74-106) #H Calcium Level 8.3 MG/DL (8.5-10.1) L Phosphorus Level 5.2 MG/DL (2.5-4.9) H Magnesium Level 1.7 MG/DL (1.8-2.4) L Total Bilirubin 0.3 MG/DL (0.2-1.0) Direct Bilirubin 0.1 MG/DL (0.0-0.3) Aspartate Amino Transf (AST/SGOT) 18 U/L (15-37) Alanine Aminotransferase (ALT/SGPT) 21 U/L (12-78) Alkaline Phosphatase 78 U/L (46-116) Total Protein 6.4 G/DL (6.4-8.2) Albumin 2.7 G/DL (3.4-5.0) L Random Vancomycin Level 11.1 ug/mL Intake and Output 11/28/17 11/29/17 19:00 07:00 Intake Total 310 ml 675 ml Output Total 2000 ml 2000 ml Balance -1690 ml -1325 ml Intake Oral 160 ml IV Total 150 ml 675 ml Output Urine Total 2000 ml 2000 ml Objective GENERAL: The patient is awake, responsive, and in no acute distress. HEAD AND NECK: Pupils reactive to light. Extraocular movements intact. Neck was supple. No JVD. 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 LUNGS: Good air entry. No wheezing or rales. HEART: S1, S2. Regular rate and rhythm. No gallops. ABDOMEN: Soft, nondistended, and nontender. Positive bowel sounds. GENITALIA: Normal male organ as well as suprapubic catheter placement. No sign of infection. EXTREMITIES: No cyanosis, clubbing, or edema. NEUROLOGIC: Cranial nerves II through XII grossly intact. Motor is 5/5 in all extremities. Gait is intact. Assessment/Plan Problem List: (1) Fever Assessment & Plan: Resolving on abx (2) BPH (benign prostatic hypertrophy) (3) Uncontrolled diabetes mellitus Assessment & Plan: Continue levemir and novolog (4) UTI (lower urinary tract infection) Assessment & Plan: Proteus Mirabilis. Continue aztreonam Per ID (5) Neurogenic bladder (6) Suprapubic catheter (7) Hypercholesteremia (8) HTN (hypertension) Assessment & Plan: Continue amlodipine. (9) CAD (coronary artery disease) (10) CKD (chronic kidney disease), stage III (11) DM (diabetes mellitus) Assessment & Plan: See endocrinology note. Continue levemir and novolog sliding scale Status: stable Jose Glasgow MD November 29, 2017 10:37
[2017-11-29] MEDS ORDERED: Vancomycin 750mg/NS 250ml IVPB SCH (11:00)
--- NOTE | 2017-11-29 11:07 | Nephrology Progress Note ---
Assessment/Plan Problem List: (1) Acute on chronic renal failure (2) Anemia in chronic kidney disease (3) Nephropathy, diabetic (4) Uncontrolled diabetes mellitus (5) BPH (benign prostatic hypertrophy) Assessment (1) CKD (chronic kidney disease), stage III, superimposed acute- Cr ethan since last admit- has metabolic acidosis (2) ? Dehydration- (3) type 2 diabetes mellitus (4) BPH (benign prostatic hypertrophy), has supra pubic cath (5) Nephropathy, diabetic (6) History of simultaneous kidney and pancreas transplant (7) h/o UTI (urinary tract infection) (8) Anemia of CKD (9) HyperParathyroidism Plan being treated for sepsis po kayexelate as needed Has suprapubic cath slow hydrate re address dialysis avoid nephrotoxics BP and BS control- monitor renal parameters per ID... Subjective ROS Limited/Unobtainable: No Objective Objective Last 24 Hour Vital Signs Date Time Temp Pulse Resp B/P (MAP) Pulse Ox O2 Delivery O2 Flow Rate FiO2 11/29/17 09:06 95 130/77 11/29/17 07:56 97.6 95 20 130/77 97 Room Air 97.6 11/29/17 04:00 98.0 72 20 148/82 100 98.0 11/29/17 00:00 97.8 77 19 130/75 99 97.8 11/28/17 20:00 97.8 64 20 121/68 100 97.8 11/28/17 16:00 97.3 75 20 145/77 100 Room Air 97.3 11/28/17 12:00 97.3 71 20 117/83 99 Room Air 97.3 Intake and Output 11/28/17 11/29/17 19:00 07:00 Intake Total 310 ml 675 ml Output Total 2000 ml 2000 ml Balance -1690 ml -1325 ml Intake Oral 160 ml IV Total 150 ml 675 ml Output Urine Total 2000 ml 2000 ml Laboratory Tests 11/29/17 06:45: White Blood Count 5.5, Red Blood Count 3.46L, Hemoglobin 10.4L, Hematocrit 32.7L , Mean Corpuscular Volume 94, Mean Corpuscular Hemoglobin 30.1, Mean Corpuscular Hemoglobin Concent 31.9L, Red Cell Distribution Width 15.7H, Platelet Count 183, Mean Platelet Volume 7.0, Neutrophils (%) (Auto) 63.7, Lymphocytes (%) (Auto) 27.3, Monocytes (%) (Auto) 5.1, Eosinophils (%) (Auto) 3.3H, Basophils (%) (Auto) 0.7, Sodium Level 138, Potassium Level 5.0, Chloride Level 110H, Carbon Dioxide Level 12L, Anion Gap 16H, Blood Urea Nitrogen 57H, Creatinine 4.3H, Estimat Glomerular Filtration Rate 14.0, Glucose Level 271#H, Calcium Level 8.3L, Phosphorus Level 5.2H, Magnesium Level 1.7L, Total Bilirubin 0.3, Direct Bilirubin 0.1, Aspartate Amino Transf (AST/SGOT) 18, Alanine Aminotransferase (ALT/SGPT) 21, Alkaline Phosphatase 78, Total Protein 6.4, Albumin 2.7L, Random Vancomycin Level 11.1 Height (Feet): 5 Height (Inches): 6.00 Weight (Pounds): 160 General Appearance: no apparent distress Cardiovascular: normal rate Respiratory/Chest: decreased breath sounds Abdomen: soft Objective no change BERT ALONSO November 29, 2017 11:07
[2017-11-29 11:55] VITALS: BP 131/80
--- NOTE | 2017-11-29 12:05 | Infectious Diseases Prog Note ---
Assessment/Plan Assessment/Plan ASSESSMENT: The patient is a 62-year-old male with multiple medical problems as listed below who has fever. - Fever, SP- ? UTI, however u/a neg, ucx grew ESBL Proteus mirabilis in the setting fo suprapubic catheter -no leukocytosis -CXR: no acute process -Bcx NTD -influenza sc neg -. hx of recent hematuria, penile extensive herrohage with surrounidng cellulitis 09/2016, s/p Rx -s/p suprapubic cystostomy 09/28; re inserted 10/01 after patient pull it off -. History of coag-negative Staph bacteremia in July 2007, AMY was negative for endocarditis (due to bacteremia due to the PICC line infection). -. History of sepsis. -. History of CKD. -. History of renal and pancreas transplant about 10 years ago. -hx of prior HD -. History of enterococcal bacteremia in May 2017. -. History of suicidal attempt. -. History rof SC/CAD. -. Anemia. -. History of colon polyps. -. Hypertension. - Diabetes. PLAN: 1. D/c vancomycin #4 and continue Ertapenem #2/5 fo ESBL bacteriuria and Fever upon admission -11/28 SP Aztreonam #3 -10/06 SP Doxycycline and Levaquin #4 -10/02 SP IV Vanco/Aztreonam #6 -3/ SP Daptomycin #34 2. Monitor blood culture. 3. Monitor BMP. CBC 4. Based on the patient's clinical course and laboratories, we will do further recommendations. Thank you, Dr. Rosado, for allowing me to participate in the care of this patient. I will follow the patient with you during this hospitalization. Subjective Allergies: Coded Allergies: CEFEPIME (Verified Allergy, Intermediate, Rash, 01/23/13) Subjective afebrile no leukocytosis Bcx NTD Objective Vital Signs Last 24 Hour Vital Signs Date Time Temp Pulse Resp B/P (MAP) Pulse Ox O2 Delivery O2 Flow Rate FiO2 11/29/17 09:06 95 130/77 11/29/17 07:56 97.6 95 20 130/77 97 Room Air 97.6 11/29/17 04:00 98.0 72 20 148/82 100 98.0 11/29/17 00:00 97.8 77 19 130/75 99 97.8 11/28/17 20:00 97.8 64 20 121/68 100 97.8 11/28/17 16:00 97.3 75 20 145/77 100 Room Air 97.3 11/28/17 12:00 97.3 71 20 117/83 99 Room Air 97.3 Height (Feet): 5 Height (Inches): 6.00 Weight (Pounds): 160 Objective HEENT: No pale conjunctiva. No icterus. NECK: Supple. CHEST: Clear. HEART: S1 and S2. ABDOMEN: Soft. Suprapubic in place. NEUROLOGIC: Awake. Laboratory Tests Test 11/29/17 06:45 White Blood Count 5.5 K/UL (4.8-10.8) Red Blood Count 3.46 M/UL (4.70-6.10) L Hemoglobin 10.4 G/DL (14.2-18.0) L Hematocrit 32.7 % (42.0-52.0) L Mean Corpuscular Volume 94 FL (80-99) Mean Corpuscular Hemoglobin 30.1 PG (27.0-31.0) Mean Corpuscular Hemoglobin Concent 31.9 G/DL (32.0-36.0) L Red Cell Distribution Width 15.7 % (11.6-14.8) H Platelet Count 183 K/UL (150-450) Mean Platelet Volume 7.0 FL (6.5-10.1) Neutrophils (%) (Auto) 63.7 % (45.0-75.0) Lymphocytes (%) (Auto) 27.3 % (20.0-45.0) Monocytes (%) (Auto) 5.1 % (1.0-10.0) Eosinophils (%) (Auto) 3.3 % (0.0-3.0) H Basophils (%) (Auto) 0.7 % (0.0-2.0) Sodium Level 138 MMOL/L (136-145) Potassium Level 5.0 MMOL/L (3.5-5.1) Chloride Level 110 MMOL/L (98-107) H Carbon Dioxide Level 12 MMOL/L (21-32) L Anion Gap 16 mmol/L (5-15) H Blood Urea Nitrogen 57 mg/dL (7-18) H Creatinine 4.3 MG/DL (0.55-1.30) H Estimat Glomerular Filtration Rate 14.0 mL/min (>60) Glucose Level 271 MG/DL (74-106) #H Calcium Level 8.3 MG/DL (8.5-10.1) L Phosphorus Level 5.2 MG/DL (2.5-4.9) H Magnesium Level 1.7 MG/DL (1.8-2.4) L Total Bilirubin 0.3 MG/DL (0.2-1.0) Direct Bilirubin 0.1 MG/DL (0.0-0.3) Aspartate Amino Transf (AST/SGOT) 18 U/L (15-37) Alanine Aminotransferase (ALT/SGPT) 21 U/L (12-78) Alkaline Phosphatase 78 U/L (46-116) Total Protein 6.4 G/DL (6.4-8.2) Albumin 2.7 G/DL (3.4-5.0) L Random Vancomycin Level 11.1 ug/mL Current Medications Medications (Trade) Dose Ordered Sig/Dunia Route PRN Reason Start Time Stop Time Status Last Admin Dose Admin Acetaminophen (Tylenol) 650 mg Q4H PRN ORAL fever (Temp>100.5) 11/26/17 21:29 12/25/17 21:28 Albuterol/ Ipratropium (Albuterol/ Ipratropium) 3 ml Q4H PRN HHN Shortness of Breath 11/26/17 21:30 12/01/17 21:29 Amlodipine Besylate (Norvasc) 5 mg DAILY ORAL 11/27/17 09:00 12/27/17 08:59 11/29/17 09:06 Azathioprine (Imuran) 50 mg DAILY ORAL 11/27/17 09:00 12/27/17 08:59 11/29/17 09:06 Chlorhexidine Gluconate (Eloisa-Hex 2%) 1 applic DAILY@2000 TOPIC 11/27/17 20:00 12/26/17 19:59 11/28/17 21:08 Dextrose (Dextrose 50%) 25 ml STAT PRN IV Hypoglycemia 11/27/17 07:00 12/27/17 06:59 Dextrose (Dextrose 50%) 50 ml STAT PRN IV Hypoglycemia BS less than 60mg 11/26/17 21:30 12/26/17 21:29 Duloxetine HCl (Cymbalta) 30 mg DAILY ORAL 11/27/17 09:00 12/27/17 08:59 11/29/17 09:06 Ertapenem 0.5 gm/ Sodium Chloride 110 ml @ 220 mls/hr Q24H IVPB 11/28/17 13:00 12/03/17 12:59 11/28/17 13:33 Heparin Sodium (Porcine) (Heparin 5000 units/ml) 5,000 units EVERY 12 HOURS SUBQ 11/26/17 21:00 12/25/17 20:59 11/29/17 09:11 Insulin Aspart (NovoLOG) BEFORE MEALS AND HS SUBQ 11/26/17 22:00 12/25/17 21:59 11/29/17 06:08 Insulin Aspart (NovoLOG) 5 units NOVOTIAC SUBQ 11/27/17 08:00 12/27/17 07:59 11/29/17 06:09 Insulin Detemir (Levemir) 10 units Q12HR SUBQ 11/28/17 09:00 12/27/17 08:59 11/29/17 09:24 Nitroglycerin (Ntg) 0.4 mg Q 5 MINS PRN SL Prn Chest Pain 11/26/17 21:30 12/25/17 21:29 Ondansetron HCl (Zofran) 4 mg Q6H PRN IVP Nausea & Vomiting 11/26/17 21:30 12/26/17 21:29 Polyethylene Glycol (Miralax) 17 gm DAILYPRN PRN ORAL Constipation 11/26/17 21:31 12/26/17 21:30 Sevelamer Carbonate (Renvela) 800 mg THREE TIMES A DAY ORAL 11/27/17 09:00 12/27/17 08:59 11/29/17 09:06 Temazepam (Restoril) 15 mg HSPRN PRN ORAL Insomnia 11/26/17 21:00 12/03/17 20:59 Vancomycin HCl (Vanco rx to dose) 1 ea DAILY PRN MISC . 11/26/17 21:31 12/26/17 21:30 Vancomycin/Sodium Chloride 250 ml @ 166.667 mls/hr Q48H IVPB 11/29/17 11:00 12/04/17 10:59 11/29/17 11:11 Monique Read M.D. November 29, 2017 12:05
--- NOTE | 2017-11-29 12:36 | General Progress Note ---
Assessment/Plan Status: stable, progressing Assessment/Plan mdd anxiety d/o Cymbalta 30mg qam provided ro Subjective Date patient seen: November 29, 2017 Neurologic/Psychiatric: Reports: anxiety, depressed, emotional problems Allergies: Coded Allergies: CEFEPIME (Verified Allergy, Intermediate, Rash, 01/23/13) Objective Last 24 Hour Vital Signs Date Time Temp Pulse Resp B/P (MAP) Pulse Ox O2 Delivery O2 Flow Rate FiO2 11/29/17 11:55 97.5 79 19 131/80 97 Room Air 97.5 11/29/17 09:06 95 130/77 11/29/17 07:56 97.6 95 20 130/77 97 Room Air 97.6 11/29/17 04:00 98.0 72 20 148/82 100 98.0 11/29/17 00:00 97.8 77 19 130/75 99 97.8 11/28/17 20:00 97.8 64 20 121/68 100 97.8 11/28/17 16:00 97.3 75 20 145/77 100 Room Air 97.3 Intake and Output 11/28/17 11/29/17 19:00 07:00 Intake Total 310 ml 675 ml Output Total 2000 ml 2000 ml Balance -1690 ml -1325 ml Intake Oral 160 ml IV Total 150 ml 675 ml Output Urine Total 2000 ml 2000 ml Laboratory Tests 11/29/17 06:45: White Blood Count 5.5, Red Blood Count 3.46L, Hemoglobin 10.4L, Hematocrit 32.7L , Mean Corpuscular Volume 94, Mean Corpuscular Hemoglobin 30.1, Mean Corpuscular Hemoglobin Concent 31.9L, Red Cell Distribution Width 15.7H, Platelet Count 183, Mean Platelet Volume 7.0, Neutrophils (%) (Auto) 63.7, Lymphocytes (%) (Auto) 27.3, Monocytes (%) (Auto) 5.1, Eosinophils (%) (Auto) 3.3H, Basophils (%) (Auto) 0.7, Sodium Level 138, Potassium Level 5.0, Chloride Level 110H, Carbon Dioxide Level 12L, Anion Gap 16H, Blood Urea Nitrogen 57H, Creatinine 4.3H, Estimat Glomerular Filtration Rate 14.0, Glucose Level 271#H, Calcium Level 8.3L, Phosphorus Level 5.2H, Magnesium Level 1.7L, Total Bilirubin 0.3, Direct Bilirubin 0.1, Aspartate Amino Transf (AST/SGOT) 18, Alanine Aminotransferase (ALT/SGPT) 21, Alkaline Phosphatase 78, Total Protein 6.4, Albumin 2.7L, Random Vancomycin Level 11.1 Height (Feet): 5 Height (Inches): 6.00 Weight (Pounds): 160 General Appearance: WD/WN, no apparent distress, alert Neurologic: oriented x 3, responsive, depressed affect Fatmata Lu M.D. November 29, 2017 12:36
[2017-11-29] MEDS: ERTAPENEM IVPB SCH (13:24)
[2017-11-29] MEDS: NS IVPB SCH (13:24)
--- NOTE | 2017-11-29 14:05 | Cardiology Report ---
APPROVED REPORT EKG Measurement Heart [id number] Normal sinus rhythm Left anterior fascicular block Abnormal ECG
--- NOTE | 2017-11-29 15:26 | Pulmonology Progress Note ---
Assessment/Plan Problems: (1) Sepsis (2) Acute on chronic renal failure (3) Renal transplant recipient (4) HTN (hypertension) (5) CAD (coronary artery disease) Assessment/Plan improving ESBL is colonized BS better controlled BP is controlled dvt prophylaxis check electrolytes periodically. Subjective ROS Limited/Unobtainable: No Interval Events: ESBL is colonized, pt is afebrile, wbc is normal, asymptomatic Allergies: Coded Allergies: CEFEPIME (Verified Allergy, Intermediate, Rash, 01/23/13) Objective Last 24 Hour Vital Signs Date Time Temp Pulse Resp B/P (MAP) Pulse Ox O2 Delivery O2 Flow Rate FiO2 11/29/17 11:55 97.5 79 19 131/80 97 Room Air 97.5 11/29/17 09:32 87 16 Room Air 21 11/29/17 09:06 95 130/77 11/29/17 07:56 97.6 95 20 130/77 97 Room Air 97.6 11/29/17 04:00 98.0 72 20 148/82 100 98.0 11/29/17 00:00 97.8 77 19 130/75 99 97.8 11/28/17 20:00 97.8 64 20 121/68 100 97.8 11/28/17 16:00 97.3 75 20 145/77 100 Room Air 97.3 Intake and Output 11/28/17 11/29/17 19:00 07:00 Intake Total 310 ml 675 ml Output Total 2000 ml 2000 ml Balance -1690 ml -1325 ml Intake Oral 160 ml IV Total 150 ml 675 ml Output Urine Total 2000 ml 2000 ml General Appearance: WD/WN HEENT: normocephalic, atraumatic Respiratory/Chest: chest wall non-tender, lungs clear Cardiovascular: normal peripheral pulses, normal rate Abdomen: normal bowel sounds, soft, non tender Genitourinary: normal external genitalia Extremities: no cyanosis Skin: no lesions Neurologic/Psychiatric: chef under II-XII grossly normal Lymphatic: no neck adenopathy Laboratory Tests 11/29/17 06:45: White Blood Count 5.5, Red Blood Count 3.46L, Hemoglobin 10.4L, Hematocrit 32.7L , Mean Corpuscular Volume 94, Mean Corpuscular Hemoglobin 30.1, Mean Corpuscular Hemoglobin Concent 31.9L, Red Cell Distribution Width 15.7H, Platelet Count 183, Mean Platelet Volume 7.0, Neutrophils (%) (Auto) 63.7, Lymphocytes (%) (Auto) 27.3, Monocytes (%) (Auto) 5.1, Eosinophils (%) (Auto) 3.3H, Basophils (%) (Auto) 0.7, Sodium Level 138, Potassium Level 5.0, Chloride Level 110H, Carbon Dioxide Level 12L, Anion Gap 16H, Blood Urea Nitrogen 57H, Creatinine 4.3H, Estimat Glomerular Filtration Rate 14.0, Glucose Level 271#H, Calcium Level 8.3L, Phosphorus Level 5.2H, Magnesium Level 1.7L, Total Bilirubin 0.3, Direct Bilirubin 0.1, Aspartate Amino Transf (AST/SGOT) 18, Alanine Aminotransferase (ALT/SGPT) 21, Alkaline Phosphatase 78, Total Protein 6.4, Albumin 2.7L, Random Vancomycin Level 11.1 Current Medications Medications (Trade) Dose Ordered Sig/Dunia Route PRN Reason Start Time Stop Time Status Last Admin Dose Admin Acetaminophen (Tylenol) 650 mg Q4H PRN ORAL fever (Temp>100.5) 11/26/17 21:29 12/25/17 21:28 Albuterol/ Ipratropium (Albuterol/ Ipratropium) 3 ml Q4H PRN HHN Shortness of Breath 11/26/17 21:30 12/01/17 21:29 Amlodipine Besylate (Norvasc) 5 mg DAILY ORAL 11/27/17 09:00 12/27/17 08:59 11/29/17 09:06 Azathioprine (Imuran) 50 mg DAILY ORAL 11/27/17 09:00 12/27/17 08:59 11/29/17 09:06 Chlorhexidine Gluconate (Eloisa-Hex 2%) 1 applic DAILY@2000 TOPIC 11/27/17 20:00 12/26/17 19:59 11/28/17 21:08 Dextrose (Dextrose 50%) 25 ml STAT PRN IV Hypoglycemia 11/27/17 07:00 12/27/17 06:59 Dextrose (Dextrose 50%) 50 ml STAT PRN IV Hypoglycemia BS less than 60mg 11/26/17 21:30 12/26/17 21:29 Duloxetine HCl (Cymbalta) 30 mg DAILY ORAL 11/27/17 09:00 12/27/17 08:59 11/29/17 09:06 Ertapenem 0.5 gm/ Sodium Chloride 110 ml @ 220 mls/hr Q24H IVPB 11/28/17 13:00 12/03/17 12:59 11/29/17 13:24 Heparin Sodium (Porcine) (Heparin 5000 units/ml) 5,000 units EVERY 12 HOURS SUBQ 11/26/17 21:00 12/25/17 20:59 11/29/17 09:11 Insulin Aspart (NovoLOG) BEFORE MEALS AND HS SUBQ 11/26/17 22:00 12/25/17 21:59 11/29/17 12:25 Insulin Aspart (NovoLOG) 5 units NOVOTIAC SUBQ 11/27/17 08:00 12/27/17 07:59 11/29/17 12:26 Insulin Detemir (Levemir) 10 units Q12HR SUBQ 11/28/17 09:00 12/27/17 08:59 11/29/17 09:24 Nitroglycerin (Ntg) 0.4 mg Q 5 MINS PRN SL Prn Chest Pain 11/26/17 21:30 12/25/17 21:29 Ondansetron HCl (Zofran) 4 mg Q6H PRN IVP Nausea & Vomiting 11/26/17 21:30 12/26/17 21:29 Polyethylene Glycol (Miralax) 17 gm DAILYPRN PRN ORAL Constipation 11/26/17 21:31 12/26/17 21:30 Sevelamer Carbonate (Renvela) 800 mg THREE TIMES A DAY ORAL 11/27/17 09:00 12/27/17 08:59 11/29/17 13:24 Temazepam (Restoril) 15 mg HSPRN PRN ORAL Insomnia 11/26/17 21:00 12/03/17 20:59 Esdras Delgado MD November 29, 2017 15:26
[2017-11-29 15:54] VITALS: BP 149/86
--- NOTE | 2017-12-01 09:47 | Discharge Summary ---
Discharge Summary Hospital Course Date of Admission November 25, 2017 at 11:45 Date of Discharge November 29, 2017 at 19:30 Admitting Diagnosis SEPSIS KEVIN Urrutia is a 62 year old male who was admitted on November 25, 2017 at 11:45 for Sepsis Hospital Course dc summary #[id number] Discharge Medications Continued Medications: Acetaminophen (Acetaminophen) 650 Mg/20.3 Ml Soln 650 MG ORAL Q6H PRN for Prn Headache/Temp > 101, ML 0 Refills Amlodipine Besylate (Norvasc) 5 Mg Tab 5 MG ORAL DAILY, TAB Azathioprine* (Imuran*) 50 Mg Tablet 50 MG PO DAILY, TAB (This prescription has been renewed) Duloxetine Hcl* (Cymbalta*) 30 Mg Capsule.dr 30 MG ORAL DAILY, CAP Insulin Aspart (Novolog Flexpen) 100 Unit/1 Ml Insuln.pen 6 UNITS SUBQ NOVOTIAC for 30 Days, EA Insulin Detemir (Levemir Flexpen) 100 Unit/1 Ml Insuln.pen 12 UNITS SUBQ BID for 30 Days, EA Lansoprazole* (Prevacid*) 30 Mg Capsule.dr 30 MG ORAL DAILY, CAP (This prescription has been renewed) Nitroglycerin (Nitroglycerin) 0.4 Mg Tab.subl 0.4 MG SL PRN for Prn Chest Pain, TAB (This prescription has been renewed) Polyethylene Glycol* (Miralax*) 17 Gm Pack 17 GM ORAL BEDTIME for 30 Days, PACK Sevelamer Carbonate* (Renvela*) 0.8 Gm Powd.pack 800 MG ORAL THREE TIMES A DAY, PACK (This prescription has been renewed) Discharge Discharge Disposition Patient was discharged to SNF Catherine Griffin NP December 01, 2017 09:47
--- NOTE | 2017-12-01 16:15 | Discharge Summary 2 SIG ---
DATE OF ADMISSION: 11/25/2017 DATE OF DISCHARGE: 11/29/2017 REASON FOR ADMISSION: 62-year-old male with past medical history significant for chronic kidney disease stage 3, history of COPD/asthma, diabetes mellitus type 2 with history of diabetic ketoacidosis, history of suprapubic catheter secondary to neurogenic bladder, history of kidney and pancreatic transplant, history of suicidal attempts in the past, coronary artery disease, status post percutaneous transluminal coronary angioplasty with stent placement in 2007, MD, left eye blindness, dyslipidemia, hypertension, presented to the hospital from the nursing facility for evaluation. Nursing staff noted fever -103. The patient also appeared to be more altered than usual. Intravenous hydration was started in the residential facility. The patient was subsequently transferred to emergency department for further evaluation and workup. Upon evaluation, the patient demonstrated no leukocytosis, elevated CRP at 5.9, elevated neutrophil percentage at 83.7. No fever. Lactic acid 2.3. BUN 55, creatinine 4.5. Chest x-ray revealed no acute cardiopulmonary pathology. Troponin negative. Renal parameters stable. Hemoglobin 11, hematocrit 35. The patient admitted with diagnoses of: 1. Fever. 2. Possible early sepsis. 3. History of suprapubic catheter placement due to neurogenic bladder. 4. Chronic kidney disease stage 3 with history of hemodialysis. 5. History of renal and pancreatic transplant over 10 years ago. 6. History of enterococcal bacteremia. 7. Diabetes mellitus type 2 with prior history of DKA. 8. Coronary artery disease and MD, status post PTCA with stent. 9. Hypertension. 10. Dyslipidemia. 11. COPD. 12. Anemia. CONSULTANTS: 1. Wood Barker, Dr. Jacques. 2. Customer Service Cashier, Dr. Delgado. 3. Infectious disease specialist, Dr. Wick. 4. Psychiatrist, Dr. Lu. 5. Dr. Chambers, research development manager. HOSPITAL COURSE: The patient admitted initially to telemetry floor. Serial troponin x2 were negative. EKG revealed no acute ischemic changes. The patient subsequently was transferred to medical/surgical floor. The patient initially started on gentle hydration and empiric antibiotics. ID specialist closely followed. Blood cultures were negative. Influenza screen test was negative. Urine culture revealed Proteus ESBL while urinalysis initially was negative. Antibiotic changed to ertapenem as per ID recommendations to complete course at the residential facility. Diesel Engine Inspector closely followed. Renal parameters and electrolytes were closely monitored. Nephrotoxics were avoided. Electrolytes were corrected as needed. Creatinine with minimal improvement to 4.3. Diesel Engine Inspector recommended close monitoring of renal parameters as outpatient, and follow up with outpatient research development manager. Recommended to readdress issue of hemodialysis if creatinine not coming don or increasing. Customer Service Cashier closely followed. Supplemental oxygen provided as needed to keep pulse oximetry above 92%. Pulmonary toilet provided as needed. Chest x-ray revealed no acute cardiopulmonary pathology. The patient demonstrated no evidence of COPD exacerbation. Respiratory status was stable. Blood pressure was managed with calcium-channel annie and remained stable. Blood sugar was managed with long-acting Levemir, short-acting pre-meal NovoLog, and sliding scale of insulin as needed as per cover stripper's recommendations, who closely followed. TSH within normal limits. Hemoglobin and hematocrit were closely monitored and remained at the baseline. No need for transfusion. Goal to keep hemoglobin above 8. DVT prophylaxis provided. Bowel regimen instituted. Psychiatrist closely followed. Cymbalta was continued. Reality orientation provided. The patient clinically improved and was stable for transfer back to residential facility. Fever and leukocytosis resolved. FINAL DIAGNOSES: 1. Possible sepsis. 2. UTI with Proteus ESBL. 3. Acute renal failure on chronic kidney disease, stage 3. 4. Diabetic nephropathy. 5. History of simultaneous kidney and pancreas transplant. 6. History of suprapubic catheter secondary to neurogenic bladder. 7. Hypertension. 8. Coronary artery disease with history of MD and PTCA. 9. Diabetes mellitus with history of DKA. 10. Anemia of chronic kidney disease. 11. BPH. 12. COPD. 13. Hyperparathyroidism. 14. Major depressive disorder. 15. Anxiety disorder. DISCHARGE MEDICATIONS: See medication reconciliation list. DISCHARGE INSTRUCTIONS: The patient was discharged to residential facility. Follow up with medical doctor at the facility. Closely monitor renal parameters. If no improvement, may readdress issue of hemodialysis. Christopher Rosado M.D. Catherine Griffin ([facility] N.PProsper DR: MARIA ANTONIA JOB#: [id number] CC: ELOY
== END 2017-11-29 19:30 | disposition short-term general hospital (02) | DRG 872 ==
LOC: EDBD 09:22 → EMR 09:48 → EDBEDREQ 10:21 → 2E 11:45 → EDBEDREQ 11:49 → 4E 11-26 21:01
DX: A41.9 Sepsis, unspecified organism (principal); Z94.83 Pancreas transplant status; Z94.0 Kidney transplant status; N17.9 Acute kidney failure, unspecified; N31.9 Neuromuscular dysfunction of bladder, unspecified; I12.9 Hypertensive chronic kidney disease with stage 1 through stage 4 chronic kidney disease, or unspecified chronic kidney disease; N18.3 Chronic kidney disease, stage 3 (moderate); I25.10 Atherosclerotic heart disease of native coronary artery without angina pectoris; Z95.5 Presence of coronary angioplasty implant and graft; I25.2 Old myocardial infarction; E78.5 Hyperlipidemia, unspecified; J44.9 Chronic obstructive pulmonary disease, unspecified; B96.4 Proteus (mirabilis) (morganii) as the cause of diseases classified elsewhere; Z16.12 Extended spectrum beta lactamase (ESBL) resistance; N40.0 Benign prostatic hyperplasia without lower urinary tract symptoms; E21.3 Hyperparathyroidism, unspecified; D63.1 Anemia in chronic kidney disease; F32.9 Major depressive disorder, single episode, unspecified; F41.9 Anxiety disorder, unspecified; Z88.8 Allergy status to other drugs, medicaments and biological substances; Z43.5 Encounter for attention to cystostomy; Z79.4 Long term (current) use of insulin; E10.22 Type 1 diabetes mellitus with diabetic chronic kidney disease; Z90.01 Acquired absence of eye; E10.65 Type 1 diabetes mellitus with hyperglycemia
CPT/HCPCS: 36415; 71045; 80048; 80053; 80061; 80076; 80202; 81003; 82550; 82553; 82962; 82977; 83036; 83605; 83690; 83735; 83880; 84100; 84443; 84484; 84550; 85025; 86140; 86710; 87040; 87086; 87181; 93005; 94664; 99285; J1815; S5561

== ENCOUNTER 2018-02-05 11:03 | Inpatient (IN) | payer MEDICARE, MEDICAID ==
[~2018-02-05] VITALS: Ht 172.7 cm; Wt 73.3 kg
[~2018-02-05 11:03] MED LIST changes: +LANSOPRAZOLE30 MG ORAL
[2018-02-05 11:15] VITALS: BP 132/66
[2018-02-05] MEDS ORDERED: Sodium Chloride 500ML 500 ML IV ONE (11:33)
[2018-02-05] MEDS ORDERED: Isovue-300 100ml vial INJ PRN (11:45)
[2018-02-05] MEDS ORDERED: TYLENOL EXTRA500 MG ORAL (11:50)
[2018-02-05] MEDS ORDERED: ZOFRAN4 M3 ORAL (11:50)
[2018-02-05 12:45] LABS: HEMATOCRIT 27.9 % (42.0-52.0); HEMOGLOBIN 9.3 G/DL (14.2-18.0); MEAN CORPUSCULAR VOLUME 94 FL (80-99); PLATELET COUNT 375 K/UL (150-450); RED BLOOD COUNT 2.97 M/UL (4.70-6.10); RED CELL DISTRIBUTION WIDTH 17.1 % (11.6-14.8)
[2018-02-05 12:46] VITALS: BP 141/75
[2018-02-05 12:50] LABS: INR 0.9 (0.9-1.1)
[2018-02-05 12:51] LABS: APPEARANCE,URINE VERY CLOUDY; BILIRUBIN, URINE NEGATIVE (NEGATIVE); COLOR,URINE RED; GLUCOSE, URINE (UA) 3+ (NEGATIVE); KETONES,URINE 1+ (NEGATIVE); LEUKOCYTE ESTERASE ,URINE 3+ (NEGATIVE); NITRITE,URINE NEGATIVE (NEGATIVE); PH,URINE 8 (4.5-8.0); PROTEIN,URINE 4+ (NEGATIVE); UROBILINOGEN,URINE NORMAL MG/DL (0.0-1.0)
[2018-02-05 12:52] LABS: ALANINE AMINOTRANSFERASE 14 U/L (12-78); ALBUMIN 3.4 G/DL (3.4-5.0); ALBUMIN/GLOBULIN RATIO 0.8 (1.0-2.7); ALKALINE PHOSPHATASE 94 U/L (46-116); ANION GAP 22 mmol/L (5-15); ASPARTATE AMINO TRANSFERASE 11 U/L (15-37); BILIRUBIN,TOTAL 0.5 MG/DL (0.2-1.0); BLOOD UREA NITROGEN 76 mg/dL (7-18); CALCIUM 8.5 MG/DL (8.5-10.1); CHLORIDE 106 MMOL/L (98-107); CREATININE 5.7 MG/DL (0.55-1.30); POTASSIUM 3.4 MMOL/L (3.5-5.1); SODIUM 135 MMOL/L (136-145)
[2018-02-05 12:55] LABS: CARBON DIOXIDE 7 MMOL/L (21-32)
[2018-02-05] MEDS ORDERED: Ertapenem 1 GM in NS 55 ML IVPB ONE (13:15)
[2018-02-05] MEDS ORDERED: Morphine Sulfate 2mg/ml Inj(IV/IM USE ONLY) IVP PRN (13:30)
[2018-02-05] MEDS ORDERED: Nitroglycerin Subl 0.4mg tab SL PRN (13:30)
[2018-02-05] MEDS ORDERED: Miralax 17gm pkt ORAL PRN (13:30)
[2018-02-05] MEDS ORDERED: Albuterol/Ipratropium 3ml neb HHN PRN (13:30)
[2018-02-05] MEDS ORDERED: Ertapenem (INVanz) 1gm Inj IM ONE (13:30)
[2018-02-05 14:15] VITALS: BP 126/69
--- NOTE | 2018-02-05 14:25 | Emergency Room Report ---
History of Present Illness General Chief Complaint: Male Urogenital Problems Source: Medical Record, EMS Present Illness HPI 62-year-old male presents ED or evaluation of hematuria. Noticed today by nursing staff at group home facility. Patient has a suprapubic catheter. Patient is DO NOT RESUSCITATE. Patient is not on any blood thinners. Patient has encephalopathy due to prior suicide attempt and is unable to provide any additional history at this time. No signs of distress upon arrival. No other aggravating relieving factors. No other associated symptoms Allergies: Coded Allergies: CEFEPIME (Verified Allergy, Intermediate, Rash, 01/23/13) Patient History Past Medical History: DM, CO, CAD, asthma, COPD, psych hx, other - encephalopathy Past Surgical History: none Pertinent Family History: none Social History: Denies: smoking, alcohol use, drug use Immunizations: UTD Reviewed Nursing Documentation: PMH: Agreed; PSxH: Agreed Nursing Documentation-PMH Past Medical History: No History, Except For Hx Cardiac Problems: Yes - anemia, CAD post stent placement [id number], nstemi MIx3 Hx Hypertension: Yes - left eye blindness, hypercholesterolemia Hx Pacemaker: No Hx Asthma: Yes Hx COPD: Yes Hx Diabetes: Yes - DMII, hx dka Hx Cancer: Yes - kidney and panreas ca History Of Psychiatric Problem: Yes - Hx suicide attempt with insulin overdose , depression Hx Neurological Problems: No Hx Cerebrovascular Accident: Yes Hx Transient Ischemic Attacks: No Hx Dementia: No Hx Alzheimer's Disease: No Hx Parkinson's Disease: No Hx Meningitis: No Hx Encephalitis: Yes - 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 ATTEMPT Hx Seizures: No Hx Epilepsy: No Hx Multiple Sclerosis: No Hx Cerebral Palsy: No Hx Amyotrophic Lat Sclerosis: No Hx Guillian-[place] Syndrome: No Hx Paralysis: No Hx Peripheral Neuropathy: No Hx Spinal Cord Injury: No Hx Head Trauma: No Hx Traumatic Brain Injury: No Hx Memory Loss: No Hx Concentration Difficulty: No Hx Speech Problem: No Hx Tremors: No Hx Vertigo: No Hx Dizziness: Yes Hx Syncope: No Hx Headaches: No Hx Aphasia: No Hx Dysphasia: No Hx Numbness: No Hx Weakness: No Hx Fatigue: No Hx Neurologic Surgery: No Hx Brain Shunt: No Review of Systems All Other Systems: limited Physical Exam Vital Signs Date Time Temp Pulse Resp B/P (MAP) Pulse Ox O2 Delivery O2 Flow Rate FiO2 02/05/18 11:04 97.5 93 18 111/64 96 Room Air 97.5 Sp02 EP Interpretation: reviewed, normal General Appearance: no apparent distress, other - encephalopathy Head: normocephalic Eyes: bilateral eye normal inspection, bilateral eye PERRL ENT: normal ENT inspection Neck: normal inspection Respiratory: chest non-tender, lungs clear, normal breath sounds, speaking full sentences Cardiovascular #1: regular rate, rhythm, no edema Gastrointestinal: other - supraubic catheter site C/D/I Rectal: deferred Genitourinary: no CVA tenderness Musculoskeletal: normal inspection Neurologic: other - encephalopathy Psychiatric: other - encephalopathy Skin: normal inspection Lymphatic: normal inspection Medical Decision Making Diagnostic Impression: Primary Impression: Hematuria Qualified Codes: R31.9 - Hematuria, unspecified Additional Impressions: Renal insufficiency UTI (lower urinary tract infection) ER Course Hospital Course 62 yo M presents to ED c/o hematuria Differential diagnoses include: Pneumonia, UTI, sepsis, dehydration, CO/ unstable angina Clinical course Patient placed on stretcher. On hat lacer with stable vitals are ED course. After initial history and physical, I ordered labs, IV fluids, UA Labs - BUN/Cr elevated, noted leukocytosis, UA + blood + bacteria I reviewed urine cx paperwork from SNF. sensitivity to ertapenem and linezolid Abx given. Case discussed with Dr Rosado and they agreed to admit patient to their service for further care and support I feel this is a highly complex case requiring extensive working including EKG/ Rhythm strip, Xray/CT/US, Blood/urine lab work, repeat exams while in ED, and administration of strong opiates/narcotics for pain control, admission to hospital or close patient follow up. Diagnosis - hematuria, renal insufficiency, UTI Patient admitted to floor in serious condition Labs Test 02/05/18 11:23 02/05/18 12:00 02/05/18 13:01 White Blood Count 15.0 K/UL (4.8-10.8) Red Blood Count 2.97 M/UL (4.70-6.10) Hemoglobin 9.3 G/DL (14.2-18.0) Hematocrit 27.9 % (42.0-52.0) Mean Corpuscular Volume 94 FL (80-99) Mean Corpuscular Hemoglobin 31.5 PG (27.0-31.0) Mean Corpuscular Hemoglobin Concent 33.5 G/DL (32.0-36.0) Red Cell Distribution Width 17.1 % (11.6-14.8) Platelet Count 375 K/UL (150-450) Mean Platelet Volume 6.1 FL (6.5-10.1) Neutrophils (%) (Auto) % (45.0-75.0) Lymphocytes (%) (Auto) % (20.0-45.0) Monocytes (%) (Auto) % (1.0-10.0) Eosinophils (%) (Auto) % (0.0-3.0) Basophils (%) (Auto) % (0.0-2.0) Differential Total Cells Counted 100 Neutrophils % (Manual) 84 % (45-75) Lymphocytes % (Manual) 11 % (20-45) Monocytes % (Manual) 4 % (1-10) Eosinophils % (Manual) 1 % (0-3) Basophils % (Manual) 0 % (0-2) Band Neutrophils 0 % (0-8) Platelet Estimate Adequate Platelet Morphology Normal Anisocytosis 1+ Prothrombin Time 9.5 SEC (9.30-11.50) Prothromb Time International Ratio 0.9 (0.9-1.1) Activated Partial Thromboplast Time 31 SEC (23-33) Sodium Level 135 MMOL/L (136-145) Potassium Level 3.4 MMOL/L (3.5-5.1) Chloride Level 106 MMOL/L (98-107) Carbon Dioxide Level 7 MMOL/L (21-32) Anion Gap 22 mmol/L (5-15) Blood Urea Nitrogen 76 mg/dL (7-18) Creatinine 5.7 MG/DL (0.55-1.30) Estimat Glomerular Filtration Rate 10.1 mL/min (>60) Glucose Level 418 MG/DL (74-106) Calcium Level 8.5 MG/DL (8.5-10.1) Total Bilirubin 0.5 MG/DL (0.2-1.0) Aspartate Amino Transf (AST/SGOT) 11 U/L (15-37) Alanine Aminotransferase (ALT/SGPT) 14 U/L (12-78) Alkaline Phosphatase 94 U/L (46-116) Total Protein 7.6 G/DL (6.4-8.2) Albumin 3.4 G/DL (3.4-5.0) Globulin 4.2 g/dL Albumin/Globulin Ratio 0.8 (1.0-2.7) Lipase 686 U/L (73-393) Urine Color Red Urine Appearance Very cloudy Urine pH 8 (4.5-8.0) Urine Specific [place] 1.010 (1.005-1.035) Urine Protein 4+ (NEGATIVE) Urine Glucose (UA) 3+ (NEGATIVE) Urine Ketones 1+ (NEGATIVE) Urine Occult Blood 5+ (NEGATIVE) Urine Nitrite Negative (NEGATIVE) Urine Bilirubin Negative (NEGATIVE) Urine Urobilinogen Normal MG/DL (0.0-1.0) Urine Leukocyte Esterase 3+ (NEGATIVE) Urine RBC Tntc /HPF (0 - 0) Urine WBC 10-15 /HPF (0 - 0) Urine Squamous Epithelial Cells Occasional /LPF Urine Bacteria Few /HPF (NONE) Lactic Acid Level 1.40 mmol/L (0.4-2.0) Last Vital Signs Date Time Temp Pulse Resp B/P (MAP) Pulse Ox O2 Delivery O2 Flow Rate FiO2 02/05/18 12:46 98.0 98 18 141/75 98 Room Air 98.0 Status: improved Disposition: ADMITTED INPATIENT Condition: Serious Referrals: Christopher Rosado MD (PCP) Nestor Gray MD Feb 05, 2018 14:25
--- NOTE | 2018-02-05 14:45 | Consultation ---
History of Present Illness General Date patient seen: Feb 05, 2018 Chief Complaint: Male Urogenital Problems Present Illness HPI 62 y/o M with hx of Dm2, HLD, MDD with suicidal attempts in the past w/ resultant chronic encephalopathy, CAD/ID, BPH, anemia, asthma, colonic polyps, ESRD s/p renal and pancreas tx ~10 yrs ago, ConS bacteremia/line infection, urinary retention s/p suprapubic catheter 09/2017 presents to ED on 02/05 with hematuria Of note patient recently admitted here on November 2017 w/ fever and treated for presumed ESBL UTI. 09/2017: hematuria, penile swelling and difficulty urinating Also admitted on July-early August 2017 due to psychiatric issues. He was found to have persistent ConS bacteremia which thought 2ry to PICC line infection which was remove but had persistent bacteremic despite removal. Underwent AMY with no obvious vegetation. Treated with 4 weeks course of Daptomycin from neg Bcx. Allergies: Coded Allergies: CEFEPIME (Verified Allergy, Intermediate, Rash, 01/23/13) Medication History Scheduled Amlodipine Besylate (Norvasc), 5 MG ORAL DAILY, (Reported) Atorvastatin Calcium* (Lipitor*), 10 MG ORAL BEDTIME Azathioprine* (Imuran*), 50 MG PO DAILY, (Reported) Duloxetine Hcl* (Cymbalta*), 30 MG ORAL DAILY, (Reported) Epoetin Jose (Epogen), 10,000 UNIT SUBQ THREE TIMES A WEEK, (Reported) Insulin Aspart (Novolog Flexpen), 6 UNITS SUBQ NOVOTIAC Insulin Detemir (Levemir Flexpen), 12 UNITS SUBQ BID Lansoprazole* (Prevacid*), 30 MG ORAL DAILY, (Reported) Lansoprazole* (Lansoprazole*), 30 MG ORAL DAILY, (Reported) Metoprolol Succinate* (Metoprolol Succinate*), 50 MG ORAL Q12HR, (Reported) Polyethylene Glycol* (Miralax*), 17 GM ORAL BEDTIME Sevelamer Carbonate* (Renvela*), 800 MG ORAL THREE TIMES A DAY, (Reported) Sevelamer Carbonate* (Renvela*), 800 MG ORAL THREE TIMES A DAY, (Reported) Sodium Citrate (Sod Citrate-Citric Acid Soln), 30 ML ORAL EVERY 6 HOURS, ( Reported) Warfarin Sod* (Coumadin*), 5 MG ORAL DAILY, (Reported) Scheduled PRN Acetaminophen (Acetaminophen), 650 MG ORAL Q6H PRN for Prn Headache/Temp > 101, (Reported) Acetaminophen* (Tylenol Extra Strength*), 500 MG ORAL Q6H PRN for Mild Pain/ Temp > 100.5, (Reported) Nitroglycerin (Nitroglycerin), 0.4 MG SL for Prn Chest Pain, (Reported) Ondansetron* (Zofran*), 4 MG ORAL Q6H PRN for Nausea & Vomiting, (Reported) Temazepam* (Restoril*), 15 MG ORAL BEDTIME PRN for Insomnia, (Reported) Patient History Healthcare decision maker Resuscitation status Advanced Directive on File Patient History Narrative Pmhx: as above Shx: Denies: smoking, alcohol use, drug use Fhx: non contributory Review of Systems All Other Systems: negative except mentioned in HPI Physical Exam Physical Exam Narrative General Appearance: no apparent distress, other - encephalopathy Head: normocephalic Eyes: bilateral eye normal inspection, bilateral eye PERRL ENT: normal ENT inspection Neck: normal inspection Respiratory: chest non-tender, lungs clear, normal breath sounds, speaking full sentences Cardiovascular regular rate, rhythm, no edema Gastrointestinal: other - supraubic catheter site C/D/I Rectal: deferred Genitourinary: no CVA tenderness Musculoskeletal: normal inspection Skin: normal inspection Last 24 Hour Vital Signs Date Time Temp Pulse Resp B/P (MAP) Pulse Ox O2 Delivery O2 Flow Rate FiO2 02/05/18 14:00 98.0 98 18 141/75 98 Room Air 98.0 02/05/18 12:46 98.0 98 18 141/75 98 Room Air 98.0 02/05/18 11:15 97.8 97 18 132/66 97 Room Air 97.8 02/05/18 11:04 97.5 93 18 111/64 96 Room Air 97.5 Laboratory Tests Test 02/05/18 11:23 02/05/18 12:00 02/05/18 13:01 White Blood Count 15.0 K/UL (4.8-10.8) H Red Blood Count 2.97 M/UL (4.70-6.10) L Hemoglobin 9.3 G/DL (14.2-18.0) L Hematocrit 27.9 % (42.0-52.0) L Mean Corpuscular Volume 94 FL (80-99) Mean Corpuscular Hemoglobin 31.5 PG (27.0-31.0) H Mean Corpuscular Hemoglobin Concent 33.5 G/DL (32.0-36.0) Red Cell Distribution Width 17.1 % (11.6-14.8) H Platelet Count 375 K/UL (150-450) Mean Platelet Volume 6.1 FL (6.5-10.1) L Neutrophils (%) (Auto) % (45.0-75.0) Lymphocytes (%) (Auto) % (20.0-45.0) Monocytes (%) (Auto) % (1.0-10.0) Eosinophils (%) (Auto) % (0.0-3.0) Basophils (%) (Auto) % (0.0-2.0) Differential Total Cells Counted 100 Neutrophils % (Manual) 84 % (45-75) H Lymphocytes % (Manual) 11 % (20-45) L Monocytes % (Manual) 4 % (1-10) Eosinophils % (Manual) 1 % (0-3) Basophils % (Manual) 0 % (0-2) Band Neutrophils 0 % (0-8) Platelet Estimate Adequate Platelet Morphology Normal Anisocytosis 1+ Prothrombin Time 9.5 SEC (9.30-11.50) Prothromb Time International Ratio 0.9 (0.9-1.1) Activated Partial Thromboplast Time 31 SEC (23-33) Sodium Level 135 MMOL/L (136-145) L Potassium Level 3.4 MMOL/L (3.5-5.1) L Chloride Level 106 MMOL/L (98-107) Carbon Dioxide Level 7 MMOL/L (21-32) *L Anion Gap 22 mmol/L (5-15) H Blood Urea Nitrogen 76 mg/dL (7-18) H Creatinine 5.7 MG/DL (0.55-1.30) H Estimat Glomerular Filtration Rate 10.1 mL/min (>60) Glucose Level 418 MG/DL (74-106) H Calcium Level 8.5 MG/DL (8.5-10.1) Total Bilirubin 0.5 MG/DL (0.2-1.0) Aspartate Amino Transf (AST/SGOT) 11 U/L (15-37) L Alanine Aminotransferase (ALT/SGPT) 14 U/L (12-78) Alkaline Phosphatase 94 U/L (46-116) Total Protein 7.6 G/DL (6.4-8.2) Albumin 3.4 G/DL (3.4-5.0) Globulin 4.2 g/dL Albumin/Globulin Ratio 0.8 (1.0-2.7) L Lipase 686 U/L (73-393) H Urine Color Red Urine Appearance Very cloudy Urine pH 8 (4.5-8.0) Urine Specific [place] 1.010 (1.005-1.035) Urine Protein 4+ (NEGATIVE) H Urine Glucose (UA) 3+ (NEGATIVE) H Urine Ketones 1+ (NEGATIVE) H Urine Occult Blood 5+ (NEGATIVE) H Urine Nitrite Negative (NEGATIVE) Urine Bilirubin Negative (NEGATIVE) Urine Urobilinogen Normal MG/DL (0.0-1.0) Urine Leukocyte Esterase 3+ (NEGATIVE) H Urine RBC Tntc /HPF (0 - 0) H Urine WBC 10-15 /HPF (0 - 0) H Urine Squamous Epithelial Cells Occasional /LPF Urine Bacteria Few /HPF (NONE) Lactic Acid Level 1.40 mmol/L (0.4-2.0) Height (Feet): 5 Height (Inches): 10.00 Weight (Pounds): 200 Medications Current Medications Medications (Trade) Dose Ordered Sig/Dunia Route PRN Reason Start Time Stop Time Status Last Admin Dose Admin Acetaminophen (Tylenol) 650 mg Q4H PRN ORAL fever (temp>100.5F) 02/05/18 13:30 03/07/18 13:29 Albuterol/ Ipratropium (Albuterol/ Ipratropium) 3 ml Q4H PRN HHN Shortness of Breath 02/05/18 13:30 02/10/18 13:29 Amlodipine Besylate (Norvasc) 5 mg DAILY ORAL 02/06/18 09:00 03/08/18 08:59 Atorvastatin Calcium (Lipitor) 10 mg BEDTIME ORAL 02/05/18 21:00 03/07/18 20:59 Dextrose (Dextrose 50%) 25 ml STAT PRN IV Hypoglycemia 02/05/18 14:15 03/07/18 14:14 Dextrose (Dextrose 50%) 50 ml STAT PRN IV Hypoglycemia 02/05/18 13:30 8/27/18 13:29 Duloxetine HCl (Cymbalta) 30 mg DAILY ORAL 02/06/18 09:00 03/08/18 08:59 Ertapenem 1 gm/ Sodium Chloride 55 ml @ 110 mls/hr ONCE ONCE IVPB 02/06/18 14:00 02/06/18 14:29 Insulin Aspart (NovoLOG) BEFORE MEALS AND HS SUBQ 02/05/18 16:30 03/07/18 16:29 Iopamidol (Isovue-300 100ml) 100 ml NOW PRN INJ Radiology Procedure 02/05/18 11:45 02/07/18 11:44 Metoprolol Succinate (Toprol XL) 50 mg Q12HR ORAL 02/05/18 21:00 03/07/18 20:59 Morphine Sulfate (Morphine Sulfate) 2 mg Q4H PRN IVP Moderate Pain (Pain Scale 4-6) 02/05/18 13:30 02/12/18 13:29 Nitroglycerin (Ntg) 0.4 mg Q5M PRN SL Prn Chest Pain 02/05/18 13:30 03/07/18 13:29 Ondansetron HCl (Zofran) 4 mg Q6H PRN ORAL Nausea & Vomiting 02/05/18 13:30 03/07/18 13:29 Polyethylene Glycol (Miralax) 17 gm DAILYPRN PRN ORAL Constipation 02/05/18 13:30 03/07/18 13:29 Sevelamer Carbonate (Renvela) 800 mg THREE TIMES A DAY ORAL 02/05/18 18:00 03/07/18 17:59 Temazepam (Restoril) 15 mg HSPRN PRN ORAL Insomnia 02/05/18 13:30 02/12/18 13:29 Vancomycin HCl (Vanco rx to dose) 1 ea DAILY PRN MISC PER RX PROTOCOL 02/05/18 14:15 03/07/18 14:14 Vancomycin HCl/ Dextrose 250 ml @ 125 mls/hr ONCE ONCE IVPB 02/05/18 18:00 02/05/18 19:59 Assessment/Plan Assessment/Plan Abx: Ertapenem x1 02/05 Linezolid x1 02/05 IV Vancomycin Assessment: Hematuria, recurrent R/o UTI -u/a wbc 10-15, RBC TNCT, nit neg, leuk +3 Leukocytosis- likely component of reactive to hematuria and possible UTI - hx of recent probable ESBL P. mirabailis UTI s/p Rx 11/2017 -. hx of recent hematuria, penile extensive hemorrhage with surrounding cellulitis 09/2016, s/p Rx -s/p suprapubic cystostomy 09/28; re inserted 10/01 after patient pull it off -. History of coag-negative Staph bacteremia in July 2007, AMY was negative for endocarditis (due to bacteremia due to the PICC line infection). -. History of sepsis. -. History of CKD. -. History of renal and pancreas transplant about 10 years ago. -hx of prior HD -. History of enterococcal bacteremia in May 2017. -. History of suicidal attempt. -. History rof ID/CAD. -. Anemia. -. History of colon polyps. -. Hypertension. - Diabetes. Plan: -Continue empiric IV Ertapenem #1 for now pending cultures and d/c IV Vancomycin -12/02 SP Ertapenem #5 -11/29 SP IV Vancomycin #4, -11/28 SP Aztreonam #3 -10/06 SP Doxycycline and Levaquin #4 -10/02 SP IV Vanco/Aztreonam #6 -09/10/17 SP Daptomycin #34 -f/u cx -Monitor CBC/CMP, temperatures -aspiration precautions -f/u CT abd/p -Uro eval Thank you for this consultation. Will continue to follow along with you. Discussed with Monique Sellers M.D. Feb 05, 2018 14:45
--- NOTE | 2018-02-05 15:40 | History & Physical ---
History and Physical History & Physicial Dictated for Int Med no. [id number] Jose Glasgow MD Feb 05, 2018 15:40
[2018-02-05 16:00] VITALS: BP 107/64
--- NOTE | 2018-02-05 16:48 | Diagnostic Imaging Report ---
EXAM: CT Abdomen and Pelvis Without Intravenous Contrast CLINICAL HISTORY: Hematuria TECHNIQUE: Axial computed tomography images of the abdomen and pelvis without intravenous contrast. CTDI is 10.58 mGy and DLP is 601 mGy-cm One or more of the following dose reduction techniques were used: automated exposure control, adjustment of the mA and/or kV according to patient size, use of iterative reconstruction technique. COMPARISON: 09/27/17. FINDINGS: Mild basilar atelectasis. Coronary atherosclerosis. Redemonstrated gallbladder distention with cholelithiasis. The spleen has decreased in size in the interval. However, there is now a 2.7 cm hypodense lesion inferiorly, which was not present on the prior study. This would be a rather rapid onset of a cyst. Correlate for history of primary malignancy as metastatic lesion or sequela of lymphoma is not excluded. Status post bilateral nephrectomies. The previously noted left lower quadrant renal transplant no longer demonstrates hydronephrosis. Several cortical cysts are stable. The suprapubic catheter appears appropriately positioned. There is some stranding along the subcutaneous course of the catheter. This could be normal if this was placed recently. (It was not present on prior study). The bladder wall is thickened, but this is a nonspecific finding. Redemonstrated trabeculation of the bladder. Mild prostatomegaly again noted. Mild fecal retention. No small bowel obstruction. Unremarkable appendix. Aortoiliac atherosclerosis. No abdominal aortic aneurysm. Ventral hernia repair with mesh in place. Bulging of bowel, but no tonia herniation. No acute fracture. IMPRESSION: Interval placement of suprapubic catheter. Stranding along the course may be normal if this was performed recently. Bladder wall thickening is a nonspecific finding. Left lower quadrant renal transplant. Interval resolution of previously noted hydronephrosis. Interval development of a hypodense splenic lesion. Correlate for history of malignancy. Redemonstrated cholelithiasis. Mild fecal retention.
--- NOTE | 2018-02-05 17:11 | Diagnostic Imaging Report ---
EXAM: XR Chest, 1 View CLINICAL HISTORY: INFECT TECHNIQUE: Frontal view of the chest. COMPARISON: 11/25/17. FINDINGS: Lungs: No parenchymal consolidation. No vascular congestion. Pleural space: Unremarkable. No pneumothorax. Heart: Unremarkable. No cardiomegaly. Mediastinum: Unremarkable given degree of rotation. IMPRESSION: No consolidation or vascular congestion
[2018-02-05] MEDS: NovoLOG Insulin Flexpen SUBQ SCH ×3 (17:33→20:23)
[2018-02-05] MEDS: Renvela 800mg Pkt ORAL SCH (17:35)
[2018-02-05] MEDS ORDERED: Vancomycin 1.5 GM/D5W 250ML IVPB ONE (18:00)
[2018-02-05] MEDS: Levemir Flexpen SUBQ SCH (18:42)
[2018-02-05 20:00] VITALS: BP 112/53
[2018-02-05] MEDS: Dyna-Hex 2% Top Sol 2oz TOPIC SCH (20:22)
[2018-02-05] MEDS: Metoprolol Succinate XL 50mg tab ORAL SCH (20:23)
--- NOTE | 2018-02-05 22:30 | History and Physical Report ---
DATE OF ADMISSION: 02/05/2018 CHIEF COMPLAINT: The patient is a 62-year-old white male, presents with chief complaint of blood in his urine. HISTORY OF PRESENT ILLNESS: The patient is a resident of [facility]. The patient was admitted to [facility] from 11/15/2017 through 11/29/2017. Please see history and physical and discharge summary dictated at that time. According to staff at [facility], the patient was noted to have hematuria in his suprapubic catheter. The patient was transferred to [facility]. The patient is admitted for hematuria to rule out urinary tract infection. PAST MEDICAL HISTORY: Significant for: 1. Chronic renal disease stage IV. 2. Diabetes type 2. 3. Benign prostatic hypertrophy. 4. Diabetic nephropathy. 5. History of coronary artery disease. 6. Hyperparathyroidism. 7. Left eye blindness. PAST SURGICAL HISTORY: Significant for: 1. Renal transplant. 2. Pancreas transplant. 3. PTCA with coronary artery stent placed. CURRENT MEDICATIONS: 1. Cymbalta 30 mg p.o. daily. 2. NovoLog sliding scale. 3. Levemir 12 units subcutaneously twice daily. 4. Amlodipine 5 mg p.o. daily. 5. Imuran 50 mg p.o. daily. 6. Prevacid 30 mg p.o. daily. 7. MiraLax 17 g p.o. twice daily. ALLERGIES: To cefepime. SOCIAL HISTORY: The patient is single. The patient is a resident of [facility]. The patient denies tobacco or alcohol use. REVIEW OF SYSTEMS: CONSTITUTIONAL: The patient denies weight loss or weight gain. The patient denies fever or chills. HEENT: The patient denies ear or throat pain. The patient denies headache. CARDIOVASCULAR: The patient denies palpitations or chest pain. CHEST: The patient denies wheezing or shortness of breath. ABDOMEN: The patient denies nausea, vomiting, diarrhea, or constipation. GENITOURINARY: The patient denies increased frequency of urination. The patient denies dysuria. The patient complains of hematuria as above. NEUROLOGIC: The patient denies seizures or generalized weakness. PHYSICAL EXAMINATION: GENERAL: The patient is well-developed and well-nourished white male, in no apparent distress. VITAL SIGNS: Temperature 97.5 degrees, respirations 18, pulse 93, and blood pressure 111/64. HEENT: Eyes, pupils equal and responsive to light and accommodation. Extraocular movements are intact. NECK: Supple without lymphadenopathy. CHEST: Lungs are clear to auscultation bilaterally without wheezes or rales. CARDIOVASCULAR: Regular rhythm and rate. S1 and S2 are normal without murmurs, rubs, or gallops. ABDOMEN: Soft, nontender, and nondistended. Positive bowel sounds. No evidence of hepatosplenomegaly. Currently, no rebound or guarding noted. EXTREMITIES: Negative for clubbing, cyanosis, or edema. RECTAL: Refused. GENITAL: Refused. NEUROLOGIC: Cranial nerves II through XII grossly intact without focal deficits. Motor strength is 5/5 bilaterally. Deep tendon reflexes are 2+ plantar. LABORATORY AND DIAGNOSTIC DATA: WBC 15.0, hemoglobin 9.3, hematocrit 27.9 and platelets 335,000. Sodium 135, potassium 3.4, chloride 106, CO2 7, BUN 76, creatinine 5.7, and glucose 418. Urinalysis showed 4+ protein, 3+ glucose, 1+ ketones, 5+ occult blood with 3+ leukocyte esterase, wbc's 10 to 15 and rbc's too numerous to count. ASSESSMENT: This is a 62-year-old white male 1. Hematuria. 2. Urinary tract infection. 3. Diabetes type 2. 4. Coronary artery disease. 5. Hypertension. 6. Hypercholesterolemia. 7. End-stage renal disease. 8. Status post renal/pancreatic transplant. TREATMENT: 1. Hematuria/urinary tract infection. An Infectious Disease consultation has been obtained with Dr. Read. A Urology consultation has been obtained with Dr. Rios. The patient has been started empirically on ertapenem. A urine culture is pending. 2. Diabetes type 2. Continue NovoLog and Levemir sliding scale as above. An Endocrinology consultation has been obtained with Dr. Jacques. 3. Coronary artery disease. The patient is status post stent placement. 4. Hypertension. Continue amlodipine as above. 5. Hypercholesterolemia. 6. Renal failure. A Nephrology consultation has been obtained with Dr. Chambers. Jose Glasgow M.D. DR: GEM JOB#: [id number] CC:
[2018-02-06] VITALS: BP 110/58
[2018-02-06] MEDS ORDERED: Vancomycin 1 GM in D5W 275 ML IV SCH (00:30)
--- NOTE | 2018-02-06 01:00 | Consultation ---
DATE OF CONSULTATION: 02/05/2018 CONSULTING PHYSICIAN: Ye Rios M.D. REFERRING PHYSICIAN: Jose Glasgow M.D. REASON FOR CONSULTATION: Evaluation of hematuria and suprapubic tube. HISTORY OF PRESENT ILLNESS: This is a 62-year-old male whom I have seen in the past. He has psychiatric history. He has a history of suprapubic tube, and he was brought from the [facility] to the hospital because of hematuria. Urology evaluation requested. The patient is a poor historian. At this time, I am not sure how long he has had a suprapubic tube or when it was placed by whom. It has been draining well. Urine slowly clearing. Most of the history was obtained from the chart. PAST MEDICAL HISTORY: Significant for above, also diabetes, PR, coronary artery disease, COPD, and encephalopathy. PAST SURGICAL HISTORY: SP tube. Apparently, he has had bilateral nephrectomies and a renal transplant for chronic renal disease. CURRENT MEDICATIONS: Here in the hospital, the patient is on ertapenem, atorvastatin, metoprolol, Levemir, NovoLog insulin, Zofran, Tylenol, morphine, Restoril, and MiraLAX. ALLERGIES: To cefepime. SOCIAL HISTORY: He is a resident of [facility]. FAMILY HISTORY: Unable to obtain. REVIEW OF SYSTEMS: Unable to obtain. PHYSICAL EXAMINATION: GENERAL: The patient is well-developed and well-nourished male, in no acute distress. VITAL SIGNS: Temperature is 98.3 degrees, blood pressure is 107/64, pulse 86, and respirations 18. HEENT: Normocephalic. NECK: Supple. ABDOMEN: Soft. Suprapubic tube is in place, it is 14-Russian. Urine draining is yellowish with some debris. EXTREMITIES: Slightly contracted. LABORATORY AND DIAGNOSTIC DATA: UA shows 4+ protein, too numerous to count rbc's and 10 to 15 wbc's. White count is 15.0, hemoglobin 9.3, and platelets 275. BUN 76, creatinine 5.7, and potassium 3.4. His cultures are pending. Diagnostic imaging studies, the patient had a CT scan of the abdomen and pelvis. It showed evidence of bilateral nephrectomies. There is left lower quadrant renal transplant. He has some cysts. There is suprapubic tube in place. It is in good position. There is some stranding around the tract. IMPRESSION: 1. Hematuria, which is resolving. 2. Urinary retention. 3. BPH history. 4. Neurogenic bladder. 5. Pyuria with colonization. 6. Proteinuria. 7. Renal cyst. PLAN AND DISCUSSION: The patient currently has a 14-Russian suprapubic tube. I did personally hand irrigate it, it is in good position. Urine is clean without active bleeding. He has a positive UA with colonization and possible infection, and he is to continue with antibiotics as ordered and will check on cultures and sensitivities and adjust accordingly. His renal function will be monitored. We will have to get his old records in regarding his suprapubic tube, and he may be due for an exchange soon. Thank you for this consultation. Ye Rios M.D. DR: NICOLE JOB#: [id number] CC:
[2018-02-06 04:00] VITALS: BP 125/65
[2018-02-06] MEDS: NovoLOG Insulin Flexpen SUBQ SCH ×7 (06:50→20:32)
[2018-02-06 07:12] LABS: BASOPHILS % (AUTO) 1.1 % (0.0-2.0); HEMATOCRIT 27.5 % (42.0-52.0); HEMOGLOBIN 8.6 G/DL (14.2-18.0); LYMPHOCYTES % (AUTO) 16.4 % (20.0-45.0); MEAN CORPUSCULAR VOLUME 93 FL (80-99); MONOCYTES % (AUTO) 6.1 % (1.0-10.0); NEUTROPHILS % (AUTO) 73.5 % (45.0-75.0); PLATELET COUNT 381 K/UL (150-450); RED BLOOD COUNT 2.96 M/UL (4.70-6.10); RED CELL DISTRIBUTION WIDTH 16.8 % (11.6-14.8); WHITE BLOOD COUNT 11.6 K/UL (4.8-10.8)
[2018-02-06 07:36] LABS: ALANINE AMINOTRANSFERASE 14 U/L (12-78); ALBUMIN 3.1 G/DL (3.4-5.0); ALBUMIN/GLOBULIN RATIO 0.8 (1.0-2.7); ALKALINE PHOSPHATASE 83 U/L (46-116); ANION GAP 21 mmol/L (5-15); ASPARTATE AMINO TRANSFERASE 9 U/L (15-37); BILIRUBIN,TOTAL 0.4 MG/DL (0.2-1.0); BLOOD UREA NITROGEN 71 mg/dL (7-18); CALCIUM 8.4 MG/DL (8.5-10.1); CHLORIDE 109 MMOL/L (98-107); CREATININE 5.4 MG/DL (0.55-1.30); POTASSIUM 3.6 MMOL/L (3.5-5.1); SODIUM 139 MMOL/L (136-145)
[2018-02-06 07:38] LABS: CARBON DIOXIDE 9 MMOL/L (21-32)
[2018-02-06 08:00] VITALS: BP 127/81
[2018-02-06] MEDS: Renvela 800mg Pkt ORAL SCH ×3 (08:17→17:39)
[2018-02-06] MEDS: Levemir Flexpen SUBQ SCH ×2 (08:18→17:38)
[2018-02-06] MEDS: Metoprolol Succinate XL 50mg tab ORAL SCH ×2 (08:18→20:22)
[2018-02-06] MEDS: DULoxetine 30mg cap ORAL SCH (08:18)
--- NOTE | 2018-02-06 09:19 | Consultation ---
History of Present Illness General Date patient seen: Feb 06, 2018 Time patient seen: 08:30 Chief Complaint: Male Urogenital Problems Referring physician: dr Rosado Reason for Consultation: COPD/asthma Present Illness HPI 62 years old male with past medical history significant for CAD with NSTEMI 3 , COPD/asthma, rs/p renal pancreatic transplant, BPH, chronic kidney disease, suprapubic catheter, DM type2 , HTN, hyperlipidemia, recurrent hematuria with recurrent UTI, encephalopathy, major depressive disorder with a history of suicidal attempt was sent from the [facility] facility after noted hematuria. patient was not on blood thinner. no fever no chills patient by himself was unable to provide sufficient information due to the encephalopathy upon evaluation in the ED vital signs were stable, no fever WBC 15 hemoglobin 9.3 hematocrit 27 BUN 76 creatinine 5.7 lactic acid 1.4 urinalysis with hematuria, pyuria, +3 leukocyte esterase, few bacteria lipase 686 CT A/P Interval placement of suprapubic catheter. Stranding along the course may be normal if this was performed recently. Bladder wall thickening - a nonspecific finding. Left lower quadrant renal transplant. Interval resolution of previously noted hydronephrosis. CXR no acute cardiopulmonary pathology patient was admitted with diagnosis of hematuria ,urinary tract infection, leukocytosis Allergies: Coded Allergies: CEFEPIME (Verified Allergy, Intermediate, Rash, 01/23/13) Medication History Scheduled Amlodipine Besylate (Norvasc), 5 MG ORAL DAILY, (Reported) Atorvastatin Calcium* (Lipitor*), 10 MG ORAL BEDTIME Azathioprine* (Imuran*), 50 MG PO DAILY, (Reported) Duloxetine Hcl* (Cymbalta*), 30 MG ORAL DAILY, (Reported) Epoetin Jose (Epogen), 10,000 UNIT SUBQ THREE TIMES A WEEK, (Reported) Insulin Aspart (Novolog Flexpen), 6 UNITS SUBQ NOVOTIAC Insulin Detemir (Levemir Flexpen), 12 UNITS SUBQ BID Lansoprazole* (Prevacid*), 30 MG ORAL DAILY, (Reported) Lansoprazole* (Lansoprazole*), 30 MG ORAL DAILY, (Reported) Metoprolol Succinate* (Metoprolol Succinate*), 50 MG ORAL Q12HR, (Reported) Polyethylene Glycol* (Miralax*), 17 GM ORAL BEDTIME Sevelamer Carbonate* (Renvela*), 800 MG ORAL THREE TIMES A DAY, (Reported) Sevelamer Carbonate* (Renvela*), 800 MG ORAL THREE TIMES A DAY, (Reported) Sodium Citrate (Sod Citrate-Citric Acid Soln), 30 ML ORAL EVERY 6 HOURS, ( Reported) Warfarin Sod* (Coumadin*), 5 MG ORAL DAILY, (Reported) Scheduled PRN Acetaminophen (Acetaminophen), 650 MG ORAL Q6H PRN for Prn Headache/Temp > 101, (Reported) Acetaminophen* (Tylenol Extra Strength*), 500 MG ORAL Q6H PRN for Mild Pain/ Temp > 100.5, (Reported) Nitroglycerin (Nitroglycerin), 0.4 MG SL for Prn Chest Pain, (Reported) Ondansetron* (Zofran*), 4 MG ORAL Q6H PRN for Nausea & Vomiting, (Reported) Temazepam* (Restoril*), 15 MG ORAL BEDTIME PRN for Insomnia, (Reported) Patient History History Provided By: Medical Record Healthcare decision maker Resuscitation status Do Not Resuscitate Advanced Directive on File No Past Medical/Surgical History Past Medical/Surgical History: (1) Suprapubic catheter (2) BPH (benign prostatic hypertrophy) (3) ATN (acute tubular necrosis) (4) Nephropathy, diabetic (5) Uncontrolled diabetes mellitus (6) Anemia (7) DKA (diabetic ketoacidoses) (8) Hyperparathyroidism (9) CKD (chronic kidney disease), stage III (10) BPH (benign prostatic hyperplasia) (11) Blind left eye (12) Diabetes mellitus out of control (13) C. difficile colitis (14) HTN (hypertension) (15) Anemia in chronic kidney disease (16) Pulmonary HTN (17) Coronary heart disease (18) Kidney transplant status (19) Renal transplant recipient Review of Systems ROS Narrative unable to obtain due to encephalopathy Physical Exam General Appearance: no apparent distress, alert - confused Lines, tubes and drains: peripheral HEENT: atraumatic, anicteric, mucous membranes moist Neck: non-tender, supple Respiratory/Chest: chest wall non-tender, lungs clear, normal breath sounds, no respiratory distress, no accessory muscle use Cardiovascular/Chest: normal rate, no JVD Abdomen: normal bowel sounds, non tender, soft Genitourinary/Rectal: suprapubic catheter Neurologic: alert, responsive - confused Last 24 Hour Vital Signs Date Time Temp Pulse Resp B/P (MAP) Pulse Ox O2 Delivery O2 Flow Rate FiO2 02/06/18 08:18 97 127/81 02/06/18 08:18 97 127/81 02/06/18 08:00 98.2 99 20 127/81 (96) 99 98.2 02/06/18 04:00 98.2 92 21 125/65 (85) 99 98.2 02/06/18 00:00 97.3 76 20 110/58 (75) 100 97.3 02/05/18 21:00 Room Air 02/05/18 20:44 77 18 Room Air 21 02/05/18 20:23 72 112/53 02/05/18 20:00 97.2 72 18 112/53 (72) 98 97.2 02/05/18 16:00 98.3 86 18 107/64 (78) 100 98.3 02/05/18 15:20 Room Air 02/05/18 14:15 98.1 85 18 126/69 (88) 96 98.1 02/05/18 14:00 98.0 98 18 141/75 98 Room Air 98.0 02/05/18 12:46 98.0 98 18 141/75 98 Room Air 98.0 02/05/18 11:15 97.8 97 18 132/66 97 Room Air 97.8 02/05/18 11:04 97.5 93 18 111/64 96 Room Air 97.5 Intake and Output 02/05/18 02/06/18 19:00 07:00 Intake Total 100 ml Output Total 300 ml 1600 ml Balance -300 ml -1500 ml Intake Oral 100 ml Output Urine Total 300 ml 1600 ml Laboratory Tests Test 02/05/18 11:23 02/05/18 12:00 02/05/18 13:01 02/06/18 06:15 White Blood Count 15.0 K/UL (4.8-10.8) H 11.6 K/UL (4.8-10.8) H Red Blood Count 2.97 M/UL (4.70-6.10) L 2.96 M/UL (4.70-6.10) L Hemoglobin 9.3 G/DL (14.2-18.0) L 8.6 G/DL (14.2-18.0) L Hematocrit 27.9 % (42.0-52.0) L 27.5 % (42.0-52.0) L Mean Corpuscular Volume 94 FL (80-99) 93 FL (80-99) Mean Corpuscular Hemoglobin 31.5 PG (27.0-31.0) H 28.9 PG (27.0-31.0) Mean Corpuscular Hemoglobin Concent 33.5 G/DL (32.0-36.0) 31.1 G/DL (32.0-36.0) L Red Cell Distribution Width 17.1 % (11.6-14.8) H 16.8 % (11.6-14.8) H Platelet Count 375 K/UL (150-450) 381 K/UL (150-450) Mean Platelet Volume 6.1 FL (6.5-10.1) L 6.3 FL (6.5-10.1) L Neutrophils (%) (Auto) % (45.0-75.0) 73.5 % (45.0-75.0) Lymphocytes (%) (Auto) % (20.0-45.0) 16.4 % (20.0-45.0) L Monocytes (%) (Auto) % (1.0-10.0) 6.1 % (1.0-10.0) Eosinophils (%) (Auto) % (0.0-3.0) 3.0 % (0.0-3.0) Basophils (%) (Auto) % (0.0-2.0) 1.1 % (0.0-2.0) Differential Total Cells Counted 100 Neutrophils % (Manual) 84 % (45-75) H Lymphocytes % (Manual) 11 % (20-45) L Monocytes % (Manual) 4 % (1-10) Eosinophils % (Manual) 1 % (0-3) Basophils % (Manual) 0 % (0-2) Band Neutrophils 0 % (0-8) Platelet Estimate Adequate Platelet Morphology Normal Anisocytosis 1+ Prothrombin Time 9.5 SEC (9.30-11.50) Prothromb Time International Ratio 0.9 (0.9-1.1) Activated Partial Thromboplast Time 31 SEC (23-33) Sodium Level 135 MMOL/L (136-145) L 139 MMOL/L (136-145) Potassium Level 3.4 MMOL/L (3.5-5.1) L 3.6 MMOL/L (3.5-5.1) Chloride Level 106 MMOL/L (98-107) 109 MMOL/L (98-107) H Carbon Dioxide Level 7 MMOL/L (21-32) *L 9 MMOL/L (21-32) *L Anion Gap 22 mmol/L (5-15) H 21 mmol/L (5-15) H Blood Urea Nitrogen 76 mg/dL (7-18) H 71 mg/dL (7-18) H Creatinine 5.7 MG/DL (0.55-1.30) H 5.4 MG/DL (0.55-1.30) H Estimat Glomerular Filtration Rate 10.1 mL/min (>60) 10.8 mL/min (>60) Glucose Level 418 MG/DL (74-106) H 277 MG/DL (74-106) #H Calcium Level 8.5 MG/DL (8.5-10.1) 8.4 MG/DL (8.5-10.1) L Total Bilirubin 0.5 MG/DL (0.2-1.0) 0.4 MG/DL (0.2-1.0) Aspartate Amino Transf (AST/SGOT) 11 U/L (15-37) L 9 U/L (15-37) L Alanine Aminotransferase (ALT/SGPT) 14 U/L (12-78) 14 U/L (12-78) Alkaline Phosphatase 94 U/L (46-116) 83 U/L (46-116) Total Protein 7.6 G/DL (6.4-8.2) 7.0 G/DL (6.4-8.2) Albumin 3.4 G/DL (3.4-5.0) 3.1 G/DL (3.4-5.0) L Globulin 4.2 g/dL 3.9 g/dL Albumin/Globulin Ratio 0.8 (1.0-2.7) L 0.8 (1.0-2.7) L Lipase 686 U/L (73-393) H Urine Color Red Urine Appearance Very cloudy Urine pH 8 (4.5-8.0) Urine Specific [place] 1.010 (1.005-1.035) Urine Protein 4+ (NEGATIVE) H Urine Glucose (UA) 3+ (NEGATIVE) H Urine Ketones 1+ (NEGATIVE) H Urine Occult Blood 5+ (NEGATIVE) H Urine Nitrite Negative (NEGATIVE) Urine Bilirubin Negative (NEGATIVE) Urine Urobilinogen Normal MG/DL (0.0-1.0) Urine Leukocyte Esterase 3+ (NEGATIVE) H Urine RBC Tntc /HPF (0 - 0) H Urine WBC 10-15 /HPF (0 - 0) H Urine Squamous Epithelial Cells Occasional /LPF Urine Bacteria Few /HPF (NONE) Lactic Acid Level 1.40 mmol/L (0.4-2.0) Microbiology Date/Time Source Procedure Growth Status 02/05/18 12:00 Urine,Clean Catch Urine Culture - Preliminary Gram Negative Bacillus 1 Resulted Height (Feet): 5 Height (Inches): 8.00 Weight (Pounds): 162 Medications Current Medications Medications (Trade) Dose Ordered Sig/Dunia Route PRN Reason Start Time Stop Time Status Last Admin Dose Admin Acetaminophen (Tylenol) 650 mg Q4H PRN ORAL fever (temp>100.5F) 02/05/18 13:30 03/07/18 13:29 Albuterol/ Ipratropium (Albuterol/ Ipratropium) 3 ml Q4H PRN HHN Shortness of Breath 02/05/18 13:30 02/10/18 13:29 Amlodipine Besylate (Norvasc) 5 mg DAILY ORAL 02/06/18 09:00 03/08/18 08:59 02/06/18 08:18 Atorvastatin Calcium (Lipitor) 10 mg BEDTIME ORAL 02/05/18 21:00 03/07/18 20:59 02/05/18 20:22 Chlorhexidine Gluconate (Eloisa-Hex 2%) 1 applic DAILY@2000 TOPIC 02/05/18 20:00 03/07/18 19:59 02/05/18 20:22 Dextrose (Dextrose 50%) 25 ml STAT PRN IV Hypoglycemia 02/05/18 14:15 03/07/18 14:14 Dextrose (Dextrose 50%) 50 ml STAT PRN IV Hypoglycemia 02/05/18 13:30 03/07/18 13:29 Duloxetine HCl (Cymbalta) 30 mg DAILY ORAL 02/06/18 09:00 03/08/18 08:59 02/06/18 08:18 Ertapenem 1 gm/ Sodium Chloride 55 ml @ 110 mls/hr Q24H IVPB 02/06/18 13:00 02/11/18 12:59 Insulin Aspart (NovoLOG) BEFORE MEALS AND HS SUBQ 02/05/18 16:30 03/07/18 16:29 02/06/18 06:50 Insulin Aspart (NovoLOG) 5 units NOVOTIAC SUBQ 02/05/18 16:50 03/07/18 16:49 02/06/18 06:50 Insulin Detemir (Levemir) 12 units BID SUBQ 02/05/18 18:00 03/07/18 17:59 02/06/18 08:18 Metoprolol Succinate (Toprol XL) 50 mg Q12HR ORAL 02/05/18 21:00 03/07/18 20:59 02/06/18 08:18 Morphine Sulfate (Morphine Sulfate) 2 mg Q4H PRN IVP Moderate Pain (Pain Scale 4-6) 02/05/18 13:30 02/12/18 13:29 Nitroglycerin (Ntg) 0.4 mg Q5M PRN SL Prn Chest Pain 02/05/18 13:30 03/07/18 13:29 Ondansetron HCl (Zofran) 4 mg Q6H PRN ORAL Nausea & Vomiting 02/05/18 13:30 03/07/18 13:29 Polyethylene Glycol (Miralax) 17 gm DAILYPRN PRN ORAL Constipation 02/05/18 13:30 03/07/18 13:29 Sevelamer Carbonate (Renvela) 800 mg THREE TIMES A DAY ORAL 02/05/18 18:00 03/07/18 17:59 02/06/18 08:17 Temazepam (Restoril) 15 mg HSPRN PRN ORAL Insomnia 02/05/18 13:30 02/12/18 13:29 Assessment/Plan Assessment/Plan ASSESSMENT Recurrent hematuria Probably UTI with a history of recurrent UTI Anemia due to acute blood loss( i.e. hematuria) Leukocytosis Suprapubic catheter Neurogenic bladder BPH Acute renal failure on chronic kidney disease Status post renal pancreatic transplant Elevated lipase Diabetes mellitus type 2 with hx of DKA Hypertension COPD/asthma Coronary artery disease with history of NSTEMI major depressive disorder with history of suicidal attempt encephalopathy PLAN OF CARE Med Surg floor O2 titrate to keep sat above 92%, pulse ox stable on RA HHN prn, no evidence of COPD/asthma exacerbation empiric antibiotic follow-up with cx ID follows Urologist follows hematuria resolved, urine cola color, but no clots suprapubic catheter irrigated easily by urologist s/p catheter meticulous care monitor H&H with goal to keep hemoglobin above 7 pt with known hx of anemia of chronic kidney disease s/p IV fluids, creat higher than baseline ( baseline around 4.5-4.8) monitor renal parameters, electrolytes, correct electrolytes as needed ,avoid nephrotoxic nephro eval as per PMD discretion trend lipase BP management with CCB and BB, optimize further as needed BS management with premeal short acting insulin, long acting insulin and SSI prn endo consult bowel regimen supportive care pain management resume other home meds case discussed and evaluated by supervising physician Catherine Griffin NP Feb 06, 2018 09:19
--- NOTE | 2018-02-06 09:28 | Urology Progress Note ---
Assessment/Plan Assessment/Plan 1. Hematuria, which is resolving. 2. Urinary retention. 3. BPH history. 4. Neurogenic bladder. 5. Pyuria with colonization. 6. Proteinuria. 7. Renal cyst. monitor clinically sp tube hand irrigated and irrigate PRN abx as ordered f/u on urine cx change sp tube soon cysto later Subjective Allergies: Coded Allergies: CEFEPIME (Verified Allergy, Intermediate, Rash, 01/23/13) Subjective all noted, intermittent gross hematuria, nurses hand irrigated hernandez Objective Last 24 Hour Vital Signs Date Time Temp Pulse Resp B/P (MAP) Pulse Ox O2 Delivery O2 Flow Rate FiO2 02/06/18 08:18 97 127/81 02/06/18 08:18 97 127/81 02/06/18 08:00 98.2 99 20 127/81 (96) 99 98.2 02/06/18 04:00 98.2 92 21 125/65 (85) 99 98.2 02/06/18 00:00 97.3 76 20 110/58 (75) 100 97.3 02/05/18 21:00 Room Air 02/05/18 20:44 77 18 Room Air 21 02/05/18 20:23 72 112/53 02/05/18 20:00 97.2 72 18 112/53 (72) 98 97.2 02/05/18 16:00 98.3 86 18 107/64 (78) 100 98.3 02/05/18 15:20 Room Air 02/05/18 14:15 98.1 85 18 126/69 (88) 96 98.1 02/05/18 14:00 98.0 98 18 141/75 98 Room Air 98.0 02/05/18 12:46 98.0 98 18 141/75 98 Room Air 98.0 02/05/18 11:15 97.8 97 18 132/66 97 Room Air 97.8 02/05/18 11:04 97.5 93 18 111/64 96 Room Air 97.5 Intake and Output 02/05/18 02/06/18 19:00 07:00 Intake Total 100 ml Output Total 300 ml 1600 ml Balance -300 ml -1500 ml Intake Oral 100 ml Output Urine Total 300 ml 1600 ml Microbiology Date/Time Source Procedure Growth Status 02/05/18 12:00 Urine,Clean Catch Urine Culture - Preliminary Gram Negative Bacillus 1 Resulted Current Medications Medications (Trade) Dose Ordered Sig/Dunia Route PRN Reason Start Time Stop Time Status Last Admin Dose Admin Acetaminophen (Tylenol) 650 mg Q4H PRN ORAL fever (temp>100.5F) 02/05/18 13:30 03/07/18 13:29 Albuterol/ Ipratropium (Albuterol/ Ipratropium) 3 ml Q4H PRN HHN Shortness of Breath 02/05/18 13:30 02/10/18 13:29 Amlodipine Besylate (Norvasc) 5 mg DAILY ORAL 02/06/18 09:00 03/08/18 08:59 02/06/18 08:18 Atorvastatin Calcium (Lipitor) 10 mg BEDTIME ORAL 02/05/18 21:00 03/07/18 20:59 02/05/18 20:22 Chlorhexidine Gluconate (Eloisa-Hex 2%) 1 applic DAILY@2000 TOPIC 02/05/18 20:00 03/07/18 19:59 02/05/18 20:22 Dextrose (Dextrose 50%) 25 ml STAT PRN IV Hypoglycemia 02/05/18 14:15 03/07/18 14:14 Dextrose (Dextrose 50%) 50 ml STAT PRN IV Hypoglycemia 02/05/18 13:30 03/07/18 13:29 Duloxetine HCl (Cymbalta) 30 mg DAILY ORAL 02/06/18 09:00 03/08/18 08:59 02/06/18 08:18 Ertapenem 1 gm/ Sodium Chloride 55 ml @ 110 mls/hr Q24H IVPB 02/06/18 13:00 02/11/18 12:59 Insulin Aspart (NovoLOG) BEFORE MEALS AND HS SUBQ 02/05/18 16:30 03/07/18 16:29 02/06/18 06:50 Insulin Aspart (NovoLOG) 5 units NOVOTIAC SUBQ 02/05/18 16:50 03/07/18 16:49 02/06/18 06:50 Insulin Detemir (Levemir) 12 units BID SUBQ 02/05/18 18:00 03/07/18 17:59 02/06/18 08:18 Metoprolol Succinate (Toprol XL) 50 mg Q12HR ORAL 02/05/18 21:00 03/07/18 20:59 02/06/18 08:18 Morphine Sulfate (Morphine Sulfate) 2 mg Q4H PRN IVP Moderate Pain (Pain Scale 4-6) 02/05/18 13:30 02/12/18 13:29 Nitroglycerin (Ntg) 0.4 mg Q5M PRN SL Prn Chest Pain 02/05/18 13:30 03/07/18 13:29 Ondansetron HCl (Zofran) 4 mg Q6H PRN ORAL Nausea & Vomiting 02/05/18 13:30 03/07/18 13:29 Polyethylene Glycol (Miralax) 17 gm DAILYPRN PRN ORAL Constipation 02/05/18 13:30 03/07/18 13:29 Sevelamer Carbonate (Renvela) 800 mg THREE TIMES A DAY ORAL 02/05/18 18:00 03/07/18 17:59 02/06/18 08:17 Temazepam (Restoril) 15 mg HSPRN PRN ORAL Insomnia 02/05/18 13:30 02/12/18 13:29 Laboratory Tests 02/05/18 11:23: White Blood Count 15.0H, Red Blood Count 2.97L, Hemoglobin 9.3L, Hematocrit 27.9L, Mean Corpuscular Volume 94, Mean Corpuscular Hemoglobin 31.5H, Mean Corpuscular Hemoglobin Concent 33.5, Red Cell Distribution Width 17.1H, Platelet Count 375, Mean Platelet Volume 6.1L, Neutrophils (%) (Auto) , Lymphocytes (%) (Auto) , Monocytes (%) (Auto) , Eosinophils (%) (Auto) , Basophils (%) (Auto) , Differential Total Cells Counted 100, Neutrophils % ( Manual) 84H, Lymphocytes % (Manual) 11L, Monocytes % (Manual) 4, Eosinophils % ( Manual) 1, Basophils % (Manual) 0, Band Neutrophils 0, Platelet Estimate Adequate, Platelet Morphology Normal, Anisocytosis 1+, Prothrombin Time 9.5, Prothromb Time International Ratio 0.9, Activated Partial Thromboplast Time 31, Sodium Level 135L, Potassium Level 3.4L, Chloride Level 106, Carbon Dioxide Level 7*L, Anion Gap 22H, Blood Urea Nitrogen 76H, Creatinine 5.7H, Estimat Glomerular Filtration Rate 10.1, Glucose Level 418H, Calcium Level 8.5, Total Bilirubin 0.5, Aspartate Amino Transf (AST/SGOT) 11L, Alanine Aminotransferase ( ALT/SGPT) 14, Alkaline Phosphatase 94, Total Protein 7.6, Albumin 3.4, Globulin 4.2, Albumin/Globulin Ratio 0.8L, Lipase 686H 02/05/18 12:00: Urine Color Red, Urine Appearance Very cloudy, Urine pH 8, Urine Specific [place] 1.010, Urine Protein 4+H, Urine Glucose (UA) 3+H, Urine Ketones 1+H, Urine Occult Blood 5+H, Urine Nitrite Negative, Urine Bilirubin Negative, Urine Urobilinogen Normal, Urine Leukocyte Esterase 3+H, Urine RBC TntcH, Urine WBC 10 -15H, Urine Squamous Epithelial Cells Occasional, Urine Bacteria Few 02/05/18 13:01: Lactic Acid Level 1.40 02/06/18 06:15: White Blood Count 11.6H, Red Blood Count 2.96L, Hemoglobin 8.6L, Hematocrit 27.5L, Mean Corpuscular Volume 93, Mean Corpuscular Hemoglobin 28.9, Mean Corpuscular Hemoglobin Concent 31.1L, Red Cell Distribution Width 16.8H, Platelet Count 381, Mean Platelet Volume 6.3L, Neutrophils (%) (Auto) 73.5, Lymphocytes (%) (Auto) 16.4L, Monocytes (%) (Auto) 6.1, Eosinophils (%) (Auto) 3.0, Basophils (%) (Auto) 1.1, Sodium Level 139, Potassium Level 3.6, Chloride Level 109H, Carbon Dioxide Level 9*L, Anion Gap 21H, Blood Urea Nitrogen 71H, Creatinine 5.4H, Estimat Glomerular Filtration Rate 10.8, Glucose Level 277#H, Calcium Level 8.4L, Total Bilirubin 0.4, Aspartate Amino Transf (AST/SGOT) 9L, Alanine Aminotransferase (ALT/SGPT) 14, Alkaline Phosphatase 83, Total Protein 7.0, Albumin 3.1L, Globulin 3.9, Albumin/Globulin Ratio 0.8L Height (Feet): 5 Height (Inches): 8.00 Weight (Pounds): 162 Objective exam stable, sp tube in place, urine carly ALEXANDRIA JOE Feb 06, 2018 09:28
--- NOTE | 2018-02-06 10:11 | General Progress Note ---
Assessment/Plan Problem List: (1) Vitamin D deficiency ICD Codes: E55.9 - Vitamin D deficiency, unspecified SNOMED: 09187363 (2) Retinopathy, diabetic, left eye ICD Codes: E11.319 - Type 2 diabetes mellitus with unspecified diabetic retinopathy without macular edema SNOMED: 2263771, 71511724 (3) Diabetes mellitus out of control ICD Codes: E11.65 - Type 2 diabetes mellitus with hyperglycemia SNOMED: 71733150, 343845295 (4) Renal insufficiency ICD Codes: N28.9 - Disorder of kidney and ureter, unspecified SNOMED: 058127407 (5) Psychiatric disturbance ICD Codes: F99 - Psychiatric disturbance SNOMED: 78774095 (6) HTN (hypertension) ICD Codes: I10 - HTN (hypertension) SNOMED: 27853387 Assessment/Plan Levemir 12 units bid Novolog 5 units ac tid + NISS Subjective Allergies: Coded Allergies: CEFEPIME (Verified Allergy, Intermediate, Rash, 01/23/13) All Systems: reviewed and negative except above Subjective events noted - patient is well known to me Objective Last 24 Hour Vital Signs Date Time Temp Pulse Resp B/P (MAP) Pulse Ox O2 Delivery O2 Flow Rate FiO2 02/06/18 09:00 Room Air 02/06/18 08:18 97 127/81 02/06/18 08:18 97 127/81 02/06/18 08:00 98.2 99 20 127/81 (96) 99 98.2 02/06/18 04:00 98.2 92 21 125/65 (85) 99 98.2 02/06/18 00:00 97.3 76 20 110/58 (75) 100 97.3 02/05/18 21:00 Room Air 02/05/18 20:44 77 18 Room Air 21 02/05/18 20:23 72 112/53 02/05/18 20:00 97.2 72 18 112/53 (72) 98 97.2 02/05/18 16:00 98.3 86 18 107/64 (78) 100 98.3 02/05/18 15:20 Room Air 02/05/18 14:15 98.1 85 18 126/69 (88) 96 98.1 02/05/18 14:00 98.0 98 18 141/75 98 Room Air 98.0 02/05/18 12:46 98.0 98 18 141/75 98 Room Air 98.0 02/05/18 11:15 97.8 97 18 132/66 97 Room Air 97.8 02/05/18 11:04 97.5 93 18 111/64 96 Room Air 97.5 Intake and Output 02/05/18 02/06/18 19:00 07:00 Intake Total 100 ml Output Total 300 ml 1600 ml Balance -300 ml -1500 ml Intake Oral 100 ml Output Urine Total 300 ml 1600 ml Laboratory Tests 02/05/18 11:23: White Blood Count 15.0H, Red Blood Count 2.97L, Hemoglobin 9.3L, Hematocrit 27.9L, Mean Corpuscular Volume 94, Mean Corpuscular Hemoglobin 31.5H, Mean Corpuscular Hemoglobin Concent 33.5, Red Cell Distribution Width 17.1H, Platelet Count 375, Mean Platelet Volume 6.1L, Neutrophils (%) (Auto) , Lymphocytes (%) (Auto) , Monocytes (%) (Auto) , Eosinophils (%) (Auto) , Basophils (%) (Auto) , Differential Total Cells Counted 100, Neutrophils % ( Manual) 84H, Lymphocytes % (Manual) 11L, Monocytes % (Manual) 4, Eosinophils % ( Manual) 1, Basophils % (Manual) 0, Band Neutrophils 0, Platelet Estimate Adequate, Platelet Morphology Normal, Anisocytosis 1+, Prothrombin Time 9.5, Prothromb Time International Ratio 0.9, Activated Partial Thromboplast Time 31, Sodium Level 135L, Potassium Level 3.4L, Chloride Level 106, Carbon Dioxide Level 7*L, Anion Gap 22H, Blood Urea Nitrogen 76H, Creatinine 5.7H, Estimat Glomerular Filtration Rate 10.1, Glucose Level 418H, Calcium Level 8.5, Total Bilirubin 0.5, Aspartate Amino Transf (AST/SGOT) 11L, Alanine Aminotransferase ( ALT/SGPT) 14, Alkaline Phosphatase 94, Total Protein 7.6, Albumin 3.4, Globulin 4.2, Albumin/Globulin Ratio 0.8L, Lipase 686H 02/05/18 12:00: Urine Color Red, Urine Appearance Very cloudy, Urine pH 8, Urine Specific [place] 1.010, Urine Protein 4+H, Urine Glucose (UA) 3+H, Urine Ketones 1+H, Urine Occult Blood 5+H, Urine Nitrite Negative, Urine Bilirubin Negative, Urine Urobilinogen Normal, Urine Leukocyte Esterase 3+H, Urine RBC TntcH, Urine WBC 10 -15H, Urine Squamous Epithelial Cells Occasional, Urine Bacteria Few 02/05/18 13:01: Lactic Acid Level 1.40 02/06/18 06:15: White Blood Count 11.6H, Red Blood Count 2.96L, Hemoglobin 8.6L, Hematocrit 27.5L, Mean Corpuscular Volume 93, Mean Corpuscular Hemoglobin 28.9, Mean Corpuscular Hemoglobin Concent 31.1L, Red Cell Distribution Width 16.8H, Platelet Count 381, Mean Platelet Volume 6.3L, Neutrophils (%) (Auto) 73.5, Lymphocytes (%) (Auto) 16.4L, Monocytes (%) (Auto) 6.1, Eosinophils (%) (Auto) 3.0, Basophils (%) (Auto) 1.1, Sodium Level 139, Potassium Level 3.6, Chloride Level 109H, Carbon Dioxide Level 9*L, Anion Gap 21H, Blood Urea Nitrogen 71H, Creatinine 5.4H, Estimat Glomerular Filtration Rate 10.8, Glucose Level 277#H, Calcium Level 8.4L, Total Bilirubin 0.4, Aspartate Amino Transf (AST/SGOT) 9L, Alanine Aminotransferase (ALT/SGPT) 14, Alkaline Phosphatase 83, Total Protein 7.0, Albumin 3.1L, Globulin 3.9, Albumin/Globulin Ratio 0.8L Height (Feet): 5 Height (Inches): 8.00 Weight (Pounds): 162 General Appearance: no apparent distress Neck: normal alignment Cardiovascular: normal rate Respiratory/Chest: lungs clear Abdomen: normal bowel sounds Pelvis: normal external exam Edema: no edema noted Arm (L), no edema noted Arm (R), no edema noted Leg (L), no edema noted Leg (R), no edema noted Pedal (L), no edema noted Pedal (R), no edema noted Generalized Objective Current Medications Medications (Trade) Dose Ordered Sig/Dunia Route PRN Reason Start Time Stop Time Status Last Admin Dose Admin Acetaminophen (Tylenol) 650 mg Q4H PRN ORAL fever (temp>100.5F) 02/05/18 13:30 03/07/18 13:29 Albuterol/ Ipratropium (Albuterol/ Ipratropium) 3 ml Q4H PRN HHN Shortness of Breath 02/05/18 13:30 02/10/18 13:29 Amlodipine Besylate (Norvasc) 5 mg DAILY ORAL 02/06/18 09:00 03/08/18 08:59 02/06/18 08:18 Atorvastatin Calcium (Lipitor) 10 mg BEDTIME ORAL 02/05/18 21:00 03/07/18 20:59 02/05/18 20:22 Chlorhexidine Gluconate (Eloisa-Hex 2%) 1 applic DAILY@2000 TOPIC 02/05/18 20:00 03/07/18 19:59 02/05/18 20:22 Dextrose (Dextrose 50%) 25 ml STAT PRN IV Hypoglycemia 02/05/18 14:15 03/07/18 14:14 Dextrose (Dextrose 50%) 50 ml STAT PRN IV Hypoglycemia 02/05/18 13:30 03/07/18 13:29 Duloxetine HCl (Cymbalta) 30 mg DAILY ORAL 02/06/18 09:00 03/08/18 08:59 02/06/18 08:18 Ertapenem 1 gm/ Sodium Chloride 55 ml @ 110 mls/hr Q24H IVPB 02/06/18 13:00 02/11/18 12:59 Insulin Aspart (NovoLOG) BEFORE MEALS AND HS SUBQ 02/05/18 16:30 03/07/18 16:29 02/06/18 06:50 Insulin Aspart (NovoLOG) 5 units NOVOTIAC SUBQ 02/05/18 16:50 03/07/18 16:49 02/06/18 06:50 Insulin Detemir (Levemir) 12 units BID SUBQ 02/05/18 18:00 03/07/18 17:59 02/06/18 08:18 Metoprolol Succinate (Toprol XL) 50 mg Q12HR ORAL 02/05/18 21:00 03/07/18 20:59 02/06/18 08:18 Morphine Sulfate (Morphine Sulfate) 2 mg Q4H PRN IVP Moderate Pain (Pain Scale 4-6) 02/05/18 13:30 02/12/18 13:29 Nitroglycerin (Ntg) 0.4 mg Q5M PRN SL Prn Chest Pain 02/05/18 13:30 03/07/18 13:29 Ondansetron HCl (Zofran) 4 mg Q6H PRN ORAL Nausea & Vomiting 02/05/18 13:30 03/07/18 13:29 Polyethylene Glycol (Miralax) 17 gm DAILYPRN PRN ORAL Constipation 02/05/18 13:30 03/07/18 13:29 Sevelamer Carbonate (Renvela) 800 mg THREE TIMES A DAY ORAL 02/05/18 18:00 03/07/18 17:59 02/06/18 08:17 Temazepam (Restoril) 15 mg HSPRN PRN ORAL Insomnia 02/05/18 13:30 02/12/18 13:29 Item Value Date Time Bedside Blood Glucose 276 mg/dl H 02/06/18 0818 Bedside Blood Glucose 276 mg/dl H 02/06/18 0650 Bedside Blood Glucose 246 mg/dl H 02/05/18 2100 Bedside Blood Glucose 358 mg/dl H 02/05/18 184 [place] Jacques MD Feb 06, 2018 10:10
[2018-02-06 12:00] VITALS: BP 123/62
[2018-02-06] MEDS ORDERED: Ertapenem 1 GM in NS 55 ML IVPB SCH (13:00)
[2018-02-06] MEDS ORDERED: Ertapenem 1gm in NS 55ml IVPB ONE (14:00)
[2018-02-06] MEDS: Ertapenem 0.5gm in NS 55ml IVPB SCH (15:30)
[2018-02-06] MEDS ORDERED: NS Irrig 1000ml ONE (15:52)
[2018-02-06 16:00] VITALS: BP 123/57
--- NOTE | 2018-02-06 16:48 | Internal Med Progress Note ---
Subjective Date of Service: Feb 06, 2018 Physician Name Jose Glasgow Attending Physician Christopher Rosado MD Current Medications Medications (Trade) Dose Ordered Sig/Dunia Route PRN Reason Start Time Stop Time Status Last Admin Dose Admin Acetaminophen (Tylenol) 650 mg Q4H PRN ORAL fever (temp>100.5F) 02/05/18 13:30 03/07/18 13:29 Albuterol/ Ipratropium (Albuterol/ Ipratropium) 3 ml Q4H PRN HHN Shortness of Breath 02/05/18 13:30 02/10/18 13:29 Amlodipine Besylate (Norvasc) 5 mg DAILY ORAL 02/06/18 09:00 03/08/18 08:59 02/06/18 08:18 Atorvastatin Calcium (Lipitor) 10 mg BEDTIME ORAL 02/05/18 21:00 03/07/18 20:59 02/05/18 20:22 Chlorhexidine Gluconate (Eloisa-Hex 2%) 1 applic DAILY@2000 TOPIC 02/05/18 20:00 03/07/18 19:59 02/05/18 20:22 Dextrose (Dextrose 50%) 25 ml STAT PRN IV Hypoglycemia 02/05/18 14:15 03/07/18 14:14 Dextrose (Dextrose 50%) 50 ml STAT PRN IV Hypoglycemia 02/05/18 13:30 03/07/18 13:29 Duloxetine HCl (Cymbalta) 30 mg DAILY ORAL 02/06/18 09:00 03/08/18 08:59 02/06/18 08:18 Ertapenem 0.5 gm/ Sodium Chloride 55 ml @ 110 mls/hr Q24H IVPB 02/06/18 15:00 02/11/18 14:59 02/06/18 15:30 Insulin Aspart (NovoLOG) BEFORE MEALS AND HS SUBQ 02/05/18 16:30 03/07/18 16:29 02/06/18 12:24 Insulin Aspart (NovoLOG) 5 units NOVOTIAC SUBQ 02/05/18 16:50 03/07/18 16:49 02/06/18 12:24 Insulin Detemir (Levemir) 12 units BID SUBQ 02/05/18 18:00 03/07/18 17:59 02/06/18 08:18 Metoprolol Succinate (Toprol XL) 50 mg Q12HR ORAL 02/05/18 21:00 03/07/18 20:59 02/06/18 08:18 Morphine Sulfate (Morphine Sulfate) 2 mg Q4H PRN IVP Moderate Pain (Pain Scale 4-6) 02/05/18 13:30 02/12/18 13:29 Nitroglycerin (Ntg) 0.4 mg Q5M PRN SL Prn Chest Pain 02/05/18 13:30 03/07/18 13:29 Ondansetron HCl (Zofran) 4 mg Q6H PRN ORAL Nausea & Vomiting 02/05/18 13:30 03/07/18 13:29 Polyethylene Glycol (Miralax) 17 gm DAILYPRN PRN ORAL Constipation 02/05/18 13:30 03/07/18 13:29 Sevelamer Carbonate (Renvela) 800 mg THREE TIMES A DAY ORAL 02/05/18 18:00 03/07/18 17:59 02/06/18 14:34 Temazepam (Restoril) 15 mg HSPRN PRN ORAL Insomnia 02/05/18 13:30 02/12/18 13:29 Allergies: Coded Allergies: CEFEPIME (Verified Allergy, Intermediate, Rash, 01/23/13) ROS Limited/Unobtainable: No Constitutional: Reports: no symptoms HEENT: Reports: no symptoms Cardiovascular: Reports: no symptoms Respiratory: Reports: no symptoms Gastrointestinal/Abdominal: Reports: no symptoms Genitourinary: Reports: no symptoms Neurologic/Psychiatric: Reports: no symptoms Subjective 62 YO M admitted with hematuria. Now UTI. Cover for Int Med-Sr Alonzo Objective Last Vital Signs Date Time Temp Pulse Resp B/P (MAP) Pulse Ox O2 Delivery O2 Flow Rate FiO2 02/06/18 12:00 98.0 64 20 123/62 (82) 99 98.0 02/06/18 09:40 Room Air 21 General Appearance: WD/WN, no apparent distress, alert EENT: PERRL/EOMI, normal ENT inspection Neck: non-tender, normal alignment, supple, normal inspection Cardiovascular: normal peripheral pulses, normal rate, regular rhythm, no gallop/murmur, no JVD Respiratory/Chest: chest wall non-tender, lungs clear, normal breath sounds, no respiratory distress, no accessory muscle use Abdomen: normal bowel sounds, non tender, soft, no organomegaly, no mass Extremities: normal range of motion, non-tender Neurologic: skid strapper II-XII grossly normal, no motor/sensory deficits Skin: normal pigmentation, warm/dry Laboratory Tests Test 02/06/18 06:15 White Blood Count 11.6 K/UL (4.8-10.8) H Red Blood Count 2.96 M/UL (4.70-6.10) L Hemoglobin 8.6 G/DL (14.2-18.0) L Hematocrit 27.5 % (42.0-52.0) L Mean Corpuscular Volume 93 FL (80-99) Mean Corpuscular Hemoglobin 28.9 PG (27.0-31.0) Mean Corpuscular Hemoglobin Concent 31.1 G/DL (32.0-36.0) L Red Cell Distribution Width 16.8 % (11.6-14.8) H Platelet Count 381 K/UL (150-450) Mean Platelet Volume 6.3 FL (6.5-10.1) L Neutrophils (%) (Auto) 73.5 % (45.0-75.0) Lymphocytes (%) (Auto) 16.4 % (20.0-45.0) L Monocytes (%) (Auto) 6.1 % (1.0-10.0) Eosinophils (%) (Auto) 3.0 % (0.0-3.0) Basophils (%) (Auto) 1.1 % (0.0-2.0) Sodium Level 139 MMOL/L (136-145) Potassium Level 3.6 MMOL/L (3.5-5.1) Chloride Level 109 MMOL/L (98-107) H Carbon Dioxide Level 9 MMOL/L (21-32) *L Anion Gap 21 mmol/L (5-15) H Blood Urea Nitrogen 71 mg/dL (7-18) H Creatinine 5.4 MG/DL (0.55-1.30) H Estimat Glomerular Filtration Rate 10.8 mL/min (>60) Glucose Level 277 MG/DL (74-106) #H Calcium Level 8.4 MG/DL (8.5-10.1) L Total Bilirubin 0.4 MG/DL (0.2-1.0) Aspartate Amino Transf (AST/SGOT) 9 U/L (15-37) L Alanine Aminotransferase (ALT/SGPT) 14 U/L (12-78) Alkaline Phosphatase 83 U/L (46-116) Total Protein 7.0 G/DL (6.4-8.2) Albumin 3.1 G/DL (3.4-5.0) L Globulin 3.9 g/dL Albumin/Globulin Ratio 0.8 (1.0-2.7) L Microbiology Date/Time Source Procedure Growth Status 02/05/18 12:00 Urine,Clean Catch Urine Culture - Preliminary Gram Negative Bacillus 1 Resulted Intake and Output 02/05/18 02/06/18 19:00 07:00 Intake Total 100 ml Output Total 300 ml 1600 ml Balance -300 ml -1500 ml Intake Oral 100 ml Output Urine Total 300 ml 1600 ml Assessment/Plan Problem List: (1) Hematuria (2) UTI (lower urinary tract infection) Assessment & Plan: Gram neg consuelo. Await culture and sens result. Cont ertapenem per ID (3) DM (diabetes mellitus) Assessment & Plan: Continue levemir and novolog sliding scale. See Endocrinology note. (4) CAD (coronary artery disease) (5) HTN (hypertension) Assessment & Plan: Continue norvasc and toprol (6) CKD (chronic kidney disease), stage III Jose Glasgow MD Feb 06, 2018 16:48
[2018-02-06 20:00] VITALS: BP 133/71
[2018-02-06] MEDS: Dyna-Hex 2% Top Sol 2oz TOPIC SCH (20:21)
[2018-02-07] VITALS: BP 159/82
[2018-02-07 04:00] VITALS: BP 119/60
[2018-02-07] MEDS: NovoLOG Insulin Flexpen SUBQ SCH ×7 (06:30→20:58)
[2018-02-07 07:10] LABS: BASOPHILS % (AUTO) 0.6 % (0.0-2.0); EOSINOPHILS % (AUTO) 0.7 % (0.0-3.0); HEMATOCRIT 27.3 % (42.0-52.0); HEMOGLOBIN 8.6 G/DL (14.2-18.0); LYMPHOCYTES % (AUTO) 11.3 % (20.0-45.0); MEAN CORPUSCULAR VOLUME 94 FL (80-99); MONOCYTES % (AUTO) 4.7 % (1.0-10.0); NEUTROPHILS % (AUTO) 82.7 % (45.0-75.0); PLATELET COUNT 362 K/UL (150-450); RED BLOOD COUNT 2.92 M/UL (4.70-6.10); RED CELL DISTRIBUTION WIDTH 17.1 % (11.6-14.8); WHITE BLOOD COUNT 14.3 K/UL (4.8-10.8)
--- NOTE | 2018-02-07 07:15 | General Progress Note ---
Assessment/Plan Problem List: (1) Vitamin D deficiency ICD Codes: E55.9 - Vitamin D deficiency, unspecified SNOMED: 68869311 (2) Retinopathy, diabetic, left eye ICD Codes: E11.319 - Type 2 diabetes mellitus with unspecified diabetic retinopathy without macular edema SNOMED: 2982518, 71231484 (3) Diabetes mellitus out of control ICD Codes: E11.65 - Type 2 diabetes mellitus with hyperglycemia SNOMED: 96412220, 822201242 (4) Renal insufficiency ICD Codes: N28.9 - Disorder of kidney and ureter, unspecified SNOMED: 061310282 (5) Psychiatric disturbance ICD Codes: F99 - Psychiatric disturbance SNOMED: 48664315 (6) HTN (hypertension) ICD Codes: I10 - HTN (hypertension) SNOMED: 08682132 (7) DKA (diabetic ketoacidoses) ICD Codes: E13.10 - Other specified diabetes mellitus with ketoacidosis without coma SNOMED: 016283832 Assessment/Plan am glucose elevated this morning - he missed Levemir dose last night am labs are pending - RN will call me with the results - will transfer to ICU for insulin drip if not improved he refused to eat breakfast this morning continue Levemir and Novolog as scheduled for now Subjective Allergies: Coded Allergies: CEFEPIME (Verified Allergy, Intermediate, Rash, 01/23/13) All Systems: reviewed and negative except above Subjective events noted Objective Last 24 Hour Vital Signs Date Time Temp Pulse Resp B/P (MAP) Pulse Ox O2 Delivery O2 Flow Rate FiO2 02/07/18 04:00 99.0 71 18 119/60 (79) 99 99.0 02/07/18 01:01 66 20 98 Room Air 21 02/07/18 00:54 68 20 98 Room Air 21 02/07/18 00:54 36 02/07/18 00:00 98.9 66 18 159/82 (107) 99 98.9 02/06/18 21:00 Room Air 02/06/18 20:22 71 133/71 02/06/18 20:00 97.3 71 16 133/71 (91) 100 97.3 02/06/18 19:05 67 18 Room Air 21 02/06/18 16:00 97.2 60 20 123/57 (79) 98 97.2 02/06/18 12:00 98.0 64 20 123/62 (82) 99 98.0 02/06/18 09:40 65 20 Room Air 21 02/06/18 09:00 Room Air 02/06/18 08:18 97 127/81 02/06/18 08:18 97 127/81 02/06/18 08:00 98.2 99 20 127/81 (96) 99 98.2 Intake and Output 02/06/18 02/07/18 19:00 07:00 Intake Total 160 ml 120 ml Output Total 1400 ml 750 ml Balance -1240 ml -630 ml Intake Oral 160 ml 120 ml Output Urine Total 1400 ml 750 ml Laboratory Tests 02/07/18 06:00: White Blood Count [Pending], Red Blood Count [Pending], Hemoglobin [Pending], Hematocrit [Pending], Mean Corpuscular Volume [Pending], Mean Corpuscular Hemoglobin [Pending], Mean Corpuscular Hemoglobin Concent [Pending], Red Cell Distribution Width [Pending], Platelet Count [Pending], Mean Platelet Volume [ Pending], Neutrophils (%) (Auto) [Pending], Lymphocytes (%) (Auto) [Pending], Monocytes (%) (Auto) [Pending], Eosinophils (%) (Auto) [Pending], Basophils (%) (Auto) [Pending], Sodium Level [Pending], Potassium Level [Pending], Chloride Level [Pending], Carbon Dioxide Level [Pending], Blood Urea Nitrogen [Pending], Creatinine [Pending], Estimat Glomerular Filtration Rate [Pending], Glucose Level [Pending], Calcium Level [Pending], Amylase Level [Pending], Lipase [ Pending] Height (Feet): 5 Height (Inches): 8.00 Weight (Pounds): 162 General Appearance: no apparent distress Neck: normal alignment Cardiovascular: normal rate Respiratory/Chest: lungs clear Abdomen: normal bowel sounds Pelvis: normal external exam Objective Current Medications Medications (Trade) Dose Ordered Sig/Dunia Route PRN Reason Start Time Stop Time Status Last Admin Dose Admin Acetaminophen (Tylenol) 650 mg Q4H PRN ORAL fever (temp>100.5F) 02/05/18 13:30 03/07/18 13:29 Albuterol/ Ipratropium (Albuterol/ Ipratropium) 3 ml Q4H PRN HHN Shortness of Breath 02/05/18 13:30 02/10/18 13:29 Amlodipine Besylate (Norvasc) 5 mg DAILY ORAL 02/06/18 09:00 03/08/18 08:59 02/06/18 08:18 Atorvastatin Calcium (Lipitor) 10 mg BEDTIME ORAL 02/05/18 21:00 03/07/18 20:59 02/05/18 20:22 Chlorhexidine Gluconate (Eloisa-Hex 2%) 1 applic DAILY@2000 TOPIC 02/05/18 20:00 03/07/18 19:59 02/05/18 20:22 Dextrose (Dextrose 50%) 25 ml STAT PRN IV Hypoglycemia 02/05/18 14:15 03/07/18 14:14 Dextrose (Dextrose 50%) 50 ml STAT PRN IV Hypoglycemia 02/05/18 13:30 03/07/18 13:29 Duloxetine HCl (Cymbalta) 30 mg DAILY ORAL 02/06/18 09:00 03/08/18 08:59 02/06/18 08:18 Ertapenem 1 gm/ Sodium Chloride 55 ml @ 110 mls/hr Q24H IVPB 02/06/18 13:00 02/11/18 12:59 Insulin Aspart (NovoLOG) BEFORE MEALS AND HS SUBQ 02/05/18 16:30 03/07/18 16:29 02/06/18 06:50 Insulin Aspart (NovoLOG) 5 units NOVOTIAC SUBQ 02/05/18 16:50 03/07/18 16:49 02/06/18 06:50 Insulin Detemir (Levemir) 12 units BID SUBQ 02/05/18 18:00 03/07/18 17:59 02/06/18 08:18 Metoprolol Succinate (Toprol XL) 50 mg Q12HR ORAL 02/05/18 21:00 03/07/18 20:59 02/06/18 08:18 Morphine Sulfate (Morphine Sulfate) 2 mg Q4H PRN IVP Moderate Pain (Pain Scale 4-6) 02/05/18 13:30 02/12/18 13:29 Nitroglycerin (Ntg) 0.4 mg Q5M PRN SL Prn Chest Pain 02/05/18 13:30 03/07/18 13:29 Ondansetron HCl (Zofran) 4 mg Q6H PRN ORAL Nausea & Vomiting 02/05/18 13:30 03/07/18 13:29 Polyethylene Glycol (Miralax) 17 gm DAILYPRN PRN ORAL Constipation 02/05/18 13:30 03/07/18 13:29 Sevelamer Carbonate (Renvela) 800 mg THREE TIMES A DAY ORAL 02/05/18 18:00 03/07/18 17:59 02/06/18 08:17 Temazepam (Restoril) 15 mg HSPRN PRN ORAL Insomnia 02/05/18 13:30 02/12/18 13:29 Item Value Date Time Bedside Blood Glucose 276 mg/dl H 02/06/18 0818 Bedside Blood Glucose 276 mg/dl H 02/06/18 0650 Bedside Blood Glucose 246 mg/dl H 02/05/18 2100 Bedside Blood Glucose 358 mg/dl H 02/05/18 1842 Modesto Jacques MD Feb 07, 2018 07:15
[2018-02-07 07:45] LABS: ANION GAP 24 mmol/L (5-15); BLOOD UREA NITROGEN 78 mg/dL (7-18); CALCIUM 8.2 MG/DL (8.5-10.1); CHLORIDE 107 MMOL/L (98-107); CREATININE 5.7 MG/DL (0.55-1.30); POTASSIUM 3.9 MMOL/L (3.5-5.1); SODIUM 139 MMOL/L (136-145)
[2018-02-07 08:00] VITALS: BP 138/90
[2018-02-07 08:08] LABS: CARBON DIOXIDE 8 MMOL/L (21-32)
[2018-02-07 08:21] LABS: AMYLASE 81 U/L (25-115)
[2018-02-07] MEDS: Renvela 800mg Pkt ORAL SCH ×3 (10:07→18:16)
[2018-02-07] MEDS: DULoxetine 30mg cap ORAL SCH (10:07)
[2018-02-07] MEDS: Metoprolol Succinate XL 50mg tab ORAL SCH ×2 (10:07→20:59)
[2018-02-07] MEDS: Levemir Flexpen SUBQ SCH ×2 (10:08→18:00)
--- NOTE | 2018-02-07 10:08 | Urology Progress Note ---
Assessment/Plan Assessment/Plan 1. Hematuria, which is resolving. 2. Urinary retention. 3. BPH history. 4. Neurogenic bladder. 5. Pyuria with colonization. 6. Proteinuria. 7. Renal cyst. monitor clinically hand irrigate sp tube PRN abx as ordered change sp tube soon cysto later Subjective Allergies: Coded Allergies: CEFEPIME (Verified Allergy, Intermediate, Rash, 01/23/13) Subjective all noted, intermittent gross hematuria, nurses hand irrigated hernandez Objective Last 24 Hour Vital Signs Date Time Temp Pulse Resp B/P (MAP) Pulse Ox O2 Delivery O2 Flow Rate FiO2 02/07/18 07:57 82 18 Room Air 21 02/07/18 04:00 99.0 71 18 119/60 (79) 99 99.0 02/07/18 01:01 66 20 98 Room Air 21 02/07/18 00:54 68 20 98 Room Air 21 02/07/18 00:54 36 02/07/18 00:00 98.9 66 18 159/82 (107) 99 98.9 02/06/18 21:00 Room Air 02/06/18 20:22 71 133/71 02/06/18 20:00 97.3 71 16 133/71 (91) 100 97.3 02/06/18 19:05 67 18 Room Air 21 02/06/18 16:00 97.2 60 20 123/57 (79) 98 97.2 02/06/18 12:00 98.0 64 20 123/62 (82) 99 98.0 Intake and Output 02/06/18 02/07/18 19:00 07:00 Intake Total 160 ml 120 ml Output Total 1400 ml 750 ml Balance -1240 ml -630 ml Intake Oral 160 ml 120 ml Output Urine Total 1400 ml 750 ml Microbiology Date/Time Source Procedure Growth Status 02/05/18 13:06 Blood Blood Culture - Preliminary NO GROWTH AFTER 24 HOURS Resulted 02/05/18 12:41 Nasal Nares MRSA Culture - Final Staphylococcus Aureus - Mrsa Complete 02/05/18 12:00 Urine,Clean Catch Urine Culture - Final Providencia Stuartii Complete 02/05/18 12:41 Rectum VRE Culture - Final Enterococcus Faecalis - Vre Complete Current Medications Medications (Trade) Dose Ordered Sig/Dunia Route PRN Reason Start Time Stop Time Status Last Admin Dose Admin Acetaminophen (Tylenol) 650 mg Q4H PRN ORAL fever (temp>100.5F) 02/05/18 13:30 03/07/18 13:29 Albuterol/ Ipratropium (Albuterol/ Ipratropium) 3 ml Q4H PRN HHN Shortness of Breath 02/05/18 13:30 02/10/18 13:29 02/07/18 01:00 Amlodipine Besylate (Norvasc) 5 mg DAILY ORAL 02/06/18 09:00 03/08/18 08:59 02/06/18 08:18 Atorvastatin Calcium (Lipitor) 10 mg BEDTIME ORAL 02/05/18 21:00 03/07/18 20:59 02/06/18 20:22 Chlorhexidine Gluconate (Eloisa-Hex 2%) 1 applic DAILY@2000 TOPIC 02/05/18 20:00 03/07/18 19:59 02/06/18 20:21 Dextrose (Dextrose 50%) 25 ml STAT PRN IV Hypoglycemia 02/05/18 14:15 03/07/18 14:14 Dextrose (Dextrose 50%) 50 ml STAT PRN IV Hypoglycemia 02/05/18 13:30 03/07/18 13:29 Duloxetine HCl (Cymbalta) 30 mg DAILY ORAL 02/06/18 09:00 03/08/18 08:59 02/06/18 08:18 Ertapenem 0.5 gm/ Sodium Chloride 55 ml @ 110 mls/hr Q24H IVPB 02/06/18 15:00 02/11/18 14:59 02/06/18 15:30 Insulin Aspart (NovoLOG) BEFORE MEALS AND HS SUBQ 02/05/18 16:30 03/07/18 16:29 02/07/18 07:00 Insulin Aspart (NovoLOG) 5 units NOVOTIAC SUBQ 02/05/18 16:50 03/07/18 16:49 02/06/18 12:24 Insulin Detemir (Levemir) 12 units BID SUBQ 02/05/18 18:00 03/07/18 17:59 02/06/18 08:18 Metoprolol Succinate (Toprol XL) 50 mg Q12HR ORAL 02/05/18 21:00 03/07/18 20:59 02/06/18 20:22 Morphine Sulfate (Morphine Sulfate) 2 mg Q4H PRN IVP Moderate Pain (Pain Scale 4-6) 02/05/18 13:30 02/12/18 13:29 Nitroglycerin (Ntg) 0.4 mg Q5M PRN SL Prn Chest Pain 02/05/18 13:30 03/07/18 13:29 Ondansetron HCl (Zofran) 4 mg Q6H PRN ORAL Nausea & Vomiting 02/05/18 13:30 03/07/18 13:29 Polyethylene Glycol (Miralax) 17 gm DAILYPRN PRN ORAL Constipation 02/05/18 13:30 03/07/18 13:29 Sevelamer Carbonate (Renvela) 800 mg THREE TIMES A DAY ORAL 02/05/18 18:00 03/07/18 17:59 02/06/18 17:39 Temazepam (Restoril) 15 mg HSPRN PRN ORAL Insomnia 02/05/18 13:30 02/12/18 13:29 Laboratory Tests 02/07/18 06:00: White Blood Count 14.3H, Red Blood Count 2.92L, Hemoglobin 8.6L, Hematocrit 27.3L, Mean Corpuscular Volume 94, Mean Corpuscular Hemoglobin 29.4, Mean Corpuscular Hemoglobin Concent 31.4L, Red Cell Distribution Width 17.1H, Platelet Count 362, Mean Platelet Volume 6.5, Neutrophils (%) (Auto) 82.7H, Lymphocytes (%) (Auto) 11.3L, Monocytes (%) (Auto) 4.7, Eosinophils (%) (Auto) 0.7, Basophils (%) (Auto) 0.6, Sodium Level 139, Potassium Level 3.9, Chloride Level 107, Carbon Dioxide Level 8*L, Anion Gap 24H, Blood Urea Nitrogen 78H, Creatinine 5.7H, Estimat Glomerular Filtration Rate 10.1, Glucose Level 410#H, Calcium Level 8.2L, Amylase Level 81, Lipase 622H Height (Feet): 5 Height (Inches): 8.00 Weight (Pounds): 162 Objective exam stable, sp tube in place, urine carly BAMSHAD,[place] Feb 07, 2018 10:08
--- NOTE | 2018-02-07 10:12 | Infectious Diseases Prog Note ---
Assessment/Plan Assessment/Plan Abx: Ertapenem x1 02/05 Linezolid x1 02/05 IV Vancomycin Assessment: Hematuria, recurrent R/o UTI - Cx growing Providencia - u/a wbc 10-15, RBC TNCT, nit neg, leuk +3 - Blood Cultures 02/05/18 - NGTD Leukocytosis- likely 2/2 to UTI - hx of recent probable ESBL P. mirabailis UTI s/p Rx 11/2017 -. hx of recent hematuria, penile extensive hemorrhage with surrounding cellulitis 09/2016, s/p Rx -s/p suprapubic cystostomy 09/28; re inserted 10/01 after patient pull it off -. History of coag-negative Staph bacteremia in July 2007, AMY was negative for endocarditis (due to bacteremia due to the PICC line infection). -. History of sepsis. -. History of CKD. -. History of renal and pancreas transplant about 10 years ago. -hx of prior HD -. History of enterococcal bacteremia in May 2017. -. History of suicidal attempt. -. History rof OH/CAD. -. Anemia. -. History of colon polyps. -. Hypertension. - Diabetes. Plan: -Continue empiric IV Ertapenem #2 for Providencia in urine -12/02 SP Ertapenem #5 -11/29 SP IV Vancomycin #4, -11/28 SP Aztreonam #3 -10/06 SP Doxycycline and Levaquin #4 -10/02 SP IV Vanco/Aztreonam #6 -09/10/17 SP Daptomycin #34 -f/u Bcx -Monitor CBC/CMP, temperatures -aspiration precautions -f/u CT abd/p -Uro eval Thank you for this consultation. Will continue to follow along with you. Subjective Allergies: Coded Allergies: CEFEPIME (Verified Allergy, Intermediate, Rash, 01/23/13) Subjective Awake and alert, Reports no new problems Denies N/V/D and fever Objective Vital Signs Last 24 Hour Vital Signs Date Time Temp Pulse Resp B/P (MAP) Pulse Ox O2 Delivery O2 Flow Rate FiO2 02/07/18 07:57 82 18 Room Air 21 02/07/18 04:00 99.0 71 18 119/60 (79) 99 99.0 02/07/18 01:01 66 20 98 Room Air 21 02/07/18 00:54 68 20 98 Room Air 21 02/07/18 00:54 36 02/07/18 00:00 98.9 66 18 159/82 (107) 99 98.9 02/06/18 21:00 Room Air 02/06/18 20:22 71 133/71 02/06/18 20:00 97.3 71 16 133/71 (91) 100 97.3 02/06/18 19:05 67 18 Room Air 21 02/06/18 16:00 97.2 60 20 123/57 (79) 98 97.2 02/06/18 12:00 98.0 64 20 123/62 (82) 99 98.0 Height (Feet): 5 Height (Inches): 8.00 Weight (Pounds): 162 Objective General Appearance: no apparent distress, other - encephalopathy improved, A/O x 2 Head: normocephalic Eyes: bilateral eye normal inspection, bilateral eye PERRL ENT: normal ENT inspection Neck: normal inspection Respiratory: chest non-tender, lungs clear, normal breath sounds, speaking full sentences Cardiovascular regular rate, rhythm, no edema Gastrointestinal: other - suprapubic catheter site C/D/I Genitourinary: no CVA tenderness Musculoskeletal: normal inspection Skin: normal inspection Microbiology Date/Time Source Procedure Growth Status 02/05/18 13:06 Blood Blood Culture - Preliminary NO GROWTH AFTER 24 HOURS Resulted 02/05/18 12:50 Blood Blood Culture - Preliminary NO GROWTH AFTER 24 HOURS Resulted 02/05/18 12:41 Nasal Nares MRSA Culture - Final Staphylococcus Aureus - Mrsa Complete 02/05/18 12:00 Urine,Clean Catch Urine Culture - Final Providencia Stuartii Complete 02/05/18 12:41 Rectum VRE Culture - Final Enterococcus Faecalis - Vre Complete 02/05/18 12:41 Rectum - Final NO CARBAPENEM-RESISTANT ENTEROBACTERI... Complete Laboratory Tests Test 02/07/18 06:00 White Blood Count 14.3 K/UL (4.8-10.8) H Red Blood Count 2.92 M/UL (4.70-6.10) L Hemoglobin 8.6 G/DL (14.2-18.0) L Hematocrit 27.3 % (42.0-52.0) L Mean Corpuscular Volume 94 FL (80-99) Mean Corpuscular Hemoglobin 29.4 PG (27.0-31.0) Mean Corpuscular Hemoglobin Concent 31.4 G/DL (32.0-36.0) L Red Cell Distribution Width 17.1 % (11.6-14.8) H Platelet Count 362 K/UL (150-450) Mean Platelet Volume 6.5 FL (6.5-10.1) Neutrophils (%) (Auto) 82.7 % (45.0-75.0) H Lymphocytes (%) (Auto) 11.3 % (20.0-45.0) L Monocytes (%) (Auto) 4.7 % (1.0-10.0) Eosinophils (%) (Auto) 0.7 % (0.0-3.0) Basophils (%) (Auto) 0.6 % (0.0-2.0) Sodium Level 139 MMOL/L (136-145) Potassium Level 3.9 MMOL/L (3.5-5.1) Chloride Level 107 MMOL/L (98-107) Carbon Dioxide Level 8 MMOL/L (21-32) *L Anion Gap 24 mmol/L (5-15) H Blood Urea Nitrogen 78 mg/dL (7-18) H Creatinine 5.7 MG/DL (0.55-1.30) H Estimat Glomerular Filtration Rate 10.1 mL/min (>60) Glucose Level 410 MG/DL (74-106) #H Calcium Level 8.2 MG/DL (8.5-10.1) L Amylase Level 81 U/L (25-115) Lipase 622 U/L (73-393) H Current Medications Medications (Trade) Dose Ordered Sig/Dunia Route PRN Reason Start Time Stop Time Status Last Admin Dose Admin Acetaminophen (Tylenol) 650 mg Q4H PRN ORAL fever (temp>100.5F) 02/05/18 13:30 03/07/18 13:29 Albuterol/ Ipratropium (Albuterol/ Ipratropium) 3 ml Q4H PRN HHN Shortness of Breath 02/05/18 13:30 02/10/18 13:29 02/07/18 01:00 Amlodipine Besylate (Norvasc) 5 mg DAILY ORAL 02/06/18 09:00 03/08/18 08:59 02/06/18 08:18 Atorvastatin Calcium (Lipitor) 10 mg BEDTIME ORAL 02/05/18 21:00 03/07/18 20:59 02/06/18 20:22 Chlorhexidine Gluconate (Eloisa-Hex 2%) 1 applic DAILY@2000 TOPIC 02/05/18 20:00 03/07/18 19:59 02/06/18 20:21 Dextrose (Dextrose 50%) 25 ml STAT PRN IV Hypoglycemia 02/05/18 14:15 03/07/18 14:14 Dextrose (Dextrose 50%) 50 ml STAT PRN IV Hypoglycemia 02/05/18 13:30 03/07/18 13:29 Duloxetine HCl (Cymbalta) 30 mg DAILY ORAL 02/06/18 09:00 03/08/18 08:59 02/06/18 08:18 Ertapenem 0.5 gm/ Sodium Chloride 55 ml @ 110 mls/hr Q24H IVPB 02/06/18 15:00 02/11/18 14:59 02/06/18 15:30 Insulin Aspart (NovoLOG) BEFORE MEALS AND HS SUBQ 02/05/18 16:30 03/07/18 16:29 02/07/18 07:00 Insulin Aspart (NovoLOG) 5 units NOVOTIAC SUBQ 02/05/18 16:50 03/07/18 16:49 02/06/18 12:24 Insulin Detemir (Levemir) 12 units BID SUBQ 02/05/18 18:00 03/07/18 17:59 02/06/18 08:18 Metoprolol Succinate (Toprol XL) 50 mg Q12HR ORAL 02/05/18 21:00 03/07/18 20:59 02/06/18 20:22 Morphine Sulfate (Morphine Sulfate) 2 mg Q4H PRN IVP Moderate Pain (Pain Scale 4-6) 02/05/18 13:30 02/12/18 13:29 Nitroglycerin (Ntg) 0.4 mg Q5M PRN SL Prn Chest Pain 02/05/18 13:30 03/07/18 13:29 Ondansetron HCl (Zofran) 4 mg Q6H PRN ORAL Nausea & Vomiting 02/05/18 13:30 03/07/18 13:29 Polyethylene Glycol (Miralax) 17 gm DAILYPRN PRN ORAL Constipation 02/05/18 13:30 03/07/18 13:29 Sevelamer Carbonate (Renvela) 800 mg THREE TIMES A DAY ORAL 02/05/18 18:00 03/07/18 17:59 02/06/18 17:39 Temazepam (Restoril) 15 mg HSPRN PRN ORAL Insomnia 02/05/18 13:30 02/12/18 13:29 William Caputo M.D. Feb 07, 2018 10:12
[2018-02-07 12:00] VITALS: BP 115/55
--- NOTE | 2018-02-07 12:07 | Internal Med Progress Note ---
Subjective Date of Service: Feb 07, 2018 Physician Name Jose Glasgow Attending Physician Christopher Rosado MD Current Medications Medications (Trade) Dose Ordered Sig/Dunia Route PRN Reason Start Time Stop Time Status Last Admin Dose Admin Acetaminophen (Tylenol) 650 mg Q4H PRN ORAL fever (temp>100.5F) 02/05/18 13:30 03/07/18 13:29 Albuterol/ Ipratropium (Albuterol/ Ipratropium) 3 ml Q4H PRN HHN Shortness of Breath 02/05/18 13:30 02/10/18 13:29 02/07/18 01:00 Amlodipine Besylate (Norvasc) 5 mg DAILY ORAL 02/06/18 09:00 03/08/18 08:59 02/07/18 10:06 Atorvastatin Calcium (Lipitor) 10 mg BEDTIME ORAL 02/05/18 21:00 03/07/18 20:59 02/06/18 20:22 Chlorhexidine Gluconate (Eloisa-Hex 2%) 1 applic DAILY@2000 TOPIC 02/05/18 20:00 03/07/18 19:59 02/06/18 20:21 Dextrose (Dextrose 50%) 25 ml STAT PRN IV Hypoglycemia 02/05/18 14:15 03/07/18 14:14 Dextrose (Dextrose 50%) 50 ml STAT PRN IV Hypoglycemia 02/05/18 13:30 03/07/18 13:29 Duloxetine HCl (Cymbalta) 30 mg DAILY ORAL 02/06/18 09:00 03/08/18 08:59 02/07/18 10:07 Ertapenem 0.5 gm/ Sodium Chloride 55 ml @ 110 mls/hr Q24H IVPB 02/06/18 15:00 02/11/18 14:59 02/06/18 15:30 Insulin Aspart (NovoLOG) BEFORE MEALS AND HS SUBQ 02/05/18 16:30 03/07/18 16:29 02/07/18 11:40 Insulin Aspart (NovoLOG) 5 units NOVOTIAC SUBQ 02/05/18 16:50 03/07/18 16:49 02/07/18 11:39 Insulin Detemir (Levemir) 12 units BID SUBQ 02/05/18 18:00 03/07/18 17:59 02/07/18 10:08 Metoprolol Succinate (Toprol XL) 50 mg Q12HR ORAL 02/05/18 21:00 03/07/18 20:59 02/07/18 10:07 Morphine Sulfate (Morphine Sulfate) 2 mg Q4H PRN IVP Moderate Pain (Pain Scale 4-6) 02/05/18 13:30 02/12/18 13:29 Nitroglycerin (Ntg) 0.4 mg Q5M PRN SL Prn Chest Pain 02/05/18 13:30 03/07/18 13:29 Ondansetron HCl (Zofran) 4 mg Q6H PRN ORAL Nausea & Vomiting 02/05/18 13:30 03/07/18 13:29 Polyethylene Glycol (Miralax) 17 gm DAILYPRN PRN ORAL Constipation 02/05/18 13:30 03/07/18 13:29 Sevelamer Carbonate (Renvela) 800 mg THREE TIMES A DAY ORAL 02/05/18 18:00 03/07/18 17:59 02/07/18 10:07 Temazepam (Restoril) 15 mg HSPRN PRN ORAL Insomnia 02/05/18 13:30 02/12/18 13:29 Allergies: Coded Allergies: CEFEPIME (Verified Allergy, Intermediate, Rash, 01/23/13) ROS Limited/Unobtainable: No Constitutional: Reports: no symptoms HEENT: Reports: no symptoms Cardiovascular: Reports: no symptoms Respiratory: Reports: no symptoms Gastrointestinal/Abdominal: Reports: no symptoms Genitourinary: Reports: no symptoms Neurologic/Psychiatric: Reports: no symptoms Subjective 62 YO M admitted with hematuria. Now UTI. Refusing to eat and refusing insulin. Cover for Int Med-Dr Rosado. AccuStick labile Objective Last Vital Signs Date Time Temp Pulse Resp B/P (MAP) Pulse Ox O2 Delivery O2 Flow Rate FiO2 02/07/18 10:07 87 105/67 02/07/18 09:00 Room Air 02/07/18 08:00 98.8 20 99 98.8 02/07/18 07:57 21 Laboratory Tests Test 02/07/18 06:00 White Blood Count 14.3 K/UL (4.8-10.8) H Red Blood Count 2.92 M/UL (4.70-6.10) L Hemoglobin 8.6 G/DL (14.2-18.0) L Hematocrit 27.3 % (42.0-52.0) L Mean Corpuscular Volume 94 FL (80-99) Mean Corpuscular Hemoglobin 29.4 PG (27.0-31.0) Mean Corpuscular Hemoglobin Concent 31.4 G/DL (32.0-36.0) L Red Cell Distribution Width 17.1 % (11.6-14.8) H Platelet Count 362 K/UL (150-450) Mean Platelet Volume 6.5 FL (6.5-10.1) Neutrophils (%) (Auto) 82.7 % (45.0-75.0) H Lymphocytes (%) (Auto) 11.3 % (20.0-45.0) L Monocytes (%) (Auto) 4.7 % (1.0-10.0) Eosinophils (%) (Auto) 0.7 % (0.0-3.0) Basophils (%) (Auto) 0.6 % (0.0-2.0) Sodium Level 139 MMOL/L (136-145) Potassium Level 3.9 MMOL/L (3.5-5.1) Chloride Level 107 MMOL/L (98-107) Carbon Dioxide Level 8 MMOL/L (21-32) *L Anion Gap 24 mmol/L (5-15) H Blood Urea Nitrogen 78 mg/dL (7-18) H Creatinine 5.7 MG/DL (0.55-1.30) H Estimat Glomerular Filtration Rate 10.1 mL/min (>60) Glucose Level 410 MG/DL (74-106) #H Calcium Level 8.2 MG/DL (8.5-10.1) L Amylase Level 81 U/L (25-115) Lipase 622 U/L (73-393) H Microbiology Date/Time Source Procedure Growth Status 02/05/18 13:06 Blood Blood Culture - Preliminary NO GROWTH AFTER 24 HOURS Resulted 02/05/18 12:50 Blood Blood Culture - Preliminary NO GROWTH AFTER 24 HOURS Resulted 02/05/18 12:41 Nasal Nares MRSA Culture - Final Staphylococcus Aureus - Mrsa Complete 02/05/18 12:00 Urine,Clean Catch Urine Culture - Final Providencia Stuartii Complete 02/05/18 12:41 Rectum VRE Culture - Final Enterococcus Faecalis - Vre Complete 02/05/18 12:41 Rectum - Final NO CARBAPENEM-RESISTANT ENTEROBACTERI... Complete Intake and Output 02/06/18 02/07/18 19:00 07:00 Intake Total 160 ml 120 ml Output Total 1400 ml 750 ml Balance -1240 ml -630 ml Intake Oral 160 ml 120 ml Output Urine Total 1400 ml 750 ml Objective General Appearance: WD/WN, no apparent distress, alert EENT: PERRL/EOMI, normal ENT inspection Neck: non-tender, normal alignment, supple, normal inspection Cardiovascular: normal peripheral pulses, normal rate, regular rhythm, no gallop/murmur, no JVD Respiratory/Chest: chest wall non-tender, lungs clear, normal breath sounds, no respiratory distress, no accessory muscle use Abdomen: normal bowel sounds, non tender, soft, no organomegaly, no mass Extremities: normal range of motion, non-tender Neurologic: clinical quality assurance specialist II-XII grossly normal, no motor/sensory deficits Skin: normal pigmentation, warm/dry Assessment/Plan Problem List: (1) Hematuria (2) UTI (lower urinary tract infection) Assessment & Plan: Gram neg consuelo. Await culture and sens result. Cont ertapenem per ID (3) DM (diabetes mellitus) Assessment & Plan: Refusing to eat and insulin therapy. Continue levemir and novolog sliding scale. See Endocrinology note. (4) CAD (coronary artery disease) (5) HTN (hypertension) Assessment & Plan: Continue norvasc and toprol (6) CKD (chronic kidney disease), stage III (7) DKA (diabetic ketoacidoses) Assessment & Plan: Mild. Does not meet ICU criteria per staff. Transfer to [facility]. See endocrinology note. (8) Depression, major Assessment & Plan: Await psychiatry consult. (9) Non compliance with medical treatment Status: not improved Jose Glasgow MD Feb 07, 2018 12:07
--- NOTE | 2018-02-07 14:32 | Pulmonology Progress Note ---
Assessment/Plan Problems: (1) Hematuria (2) Pulmonary HTN (3) Encephalopathy acute (4) Acute on chronic renal failure (5) Acute hyperglycemia (6) Depression, major (7) Anemia in chronic kidney disease (8) Suprapubic catheter Assessment/Plan iv fluids check electrolytes insuline sliding scale psych to follow check h/h prbc prn Subjective ROS Limited/Unobtainable: No Interval Events: pt refusing any treatment Constitutional: Reports: no symptoms Allergies: Coded Allergies: CEFEPIME (Verified Allergy, Intermediate, Rash, 01/23/13) Objective Last 24 Hour Vital Signs Date Time Temp Pulse Resp B/P (MAP) Pulse Ox O2 Delivery O2 Flow Rate FiO2 02/07/18 12:00 98.8 68 19 115/55 (75) 96 98.8 02/07/18 10:07 87 105/67 02/07/18 10:06 87 105/67 02/07/18 09:00 Room Air 02/07/18 08:00 98.8 90 20 138/90 (106) 99 98.8 02/07/18 07:57 82 18 Room Air 21 02/07/18 04:00 99.0 71 18 119/60 (79) 99 99.0 02/07/18 01:01 66 20 98 Room Air 21 02/07/18 00:54 68 20 98 Room Air 21 02/07/18 00:54 36 02/07/18 00:00 98.9 66 18 159/82 (107) 99 98.9 02/06/18 21:00 Room Air 02/06/18 20:22 71 133/71 02/06/18 20:00 97.3 71 16 133/71 (91) 100 97.3 02/06/18 19:05 67 18 Room Air 21 02/06/18 16:00 97.2 60 20 123/57 (79) 98 97.2 Intake and Output 02/06/18 02/07/18 19:00 07:00 Intake Total 160 ml 120 ml Output Total 1400 ml 750 ml Balance -1240 ml -630 ml Intake Oral 160 ml 120 ml Output Urine Total 1400 ml 750 ml General Appearance: WD/WN HEENT: normocephalic, atraumatic Respiratory/Chest: chest wall non-tender, lungs clear Cardiovascular: normal peripheral pulses, normal rate, no JVD Abdomen: soft, non tender Extremities: no cyanosis Skin: no rash Microbiology Date/Time Source Procedure Growth Status 02/05/18 13:06 Blood Blood Culture - Preliminary NO GROWTH AFTER 24 HOURS Resulted 02/05/18 12:50 Blood Blood Culture - Preliminary NO GROWTH AFTER 24 HOURS Resulted 02/05/18 12:41 Nasal Nares MRSA Culture - Final Staphylococcus Aureus - Mrsa Complete 02/05/18 12:00 Urine,Clean Catch Urine Culture - Final Providencia Stuartii Complete 02/05/18 12:41 Rectum VRE Culture - Final Enterococcus Faecalis - Vre Complete 02/05/18 12:41 Rectum - Final NO CARBAPENEM-RESISTANT ENTEROBACTERI... Complete Laboratory Tests 02/07/18 06:00: White Blood Count 14.3H, Red Blood Count 2.92L, Hemoglobin 8.6L, Hematocrit 27.3L, Mean Corpuscular Volume 94, Mean Corpuscular Hemoglobin 29.4, Mean Corpuscular Hemoglobin Concent 31.4L, Red Cell Distribution Width 17.1H, Platelet Count 362, Mean Platelet Volume 6.5, Neutrophils (%) (Auto) 82.7H, Lymphocytes (%) (Auto) 11.3L, Monocytes (%) (Auto) 4.7, Eosinophils (%) (Auto) 0.7, Basophils (%) (Auto) 0.6, Sodium Level 139, Potassium Level 3.9, Chloride Level 107, Carbon Dioxide Level 8*L, Anion Gap 24H, Blood Urea Nitrogen 78H, Creatinine 5.7H, Estimat Glomerular Filtration Rate 10.1, Glucose Level 410#H, Calcium Level 8.2L, Amylase Level 81, Lipase 622H Current Medications Medications (Trade) Dose Ordered Sig/Dunia Route PRN Reason Start Time Stop Time Status Last Admin Dose Admin Acetaminophen (Tylenol) 650 mg Q4H PRN ORAL fever (temp>100.5F) 02/05/18 13:30 03/07/18 13:29 Albuterol/ Ipratropium (Albuterol/ Ipratropium) 3 ml Q4H PRN HHN Shortness of Breath 02/05/18 13:30 02/10/18 13:29 02/07/18 01:00 Amlodipine Besylate (Norvasc) 5 mg DAILY ORAL 02/06/18 09:00 03/08/18 08:59 02/07/18 10:06 Atorvastatin Calcium (Lipitor) 10 mg BEDTIME ORAL 02/05/18 21:00 03/07/18 20:59 02/06/18 20:22 Chlorhexidine Gluconate (Eloisa-Hex 2%) 1 applic DAILY@2000 TOPIC 02/05/18 20:00 03/07/18 19:59 02/06/18 20:21 Dextrose (Dextrose 50%) 25 ml STAT PRN IV Hypoglycemia 02/05/18 14:15 03/07/18 14:14 Dextrose (Dextrose 50%) 50 ml STAT PRN IV Hypoglycemia 02/05/18 13:30 03/07/18 13:29 Duloxetine HCl (Cymbalta) 30 mg DAILY ORAL 02/06/18 09:00 03/08/18 08:59 02/07/18 10:07 Ertapenem 0.5 gm/ Sodium Chloride 55 ml @ 110 mls/hr Q24H IVPB 02/06/18 15:00 02/11/18 14:59 02/06/18 15:30 Insulin Aspart (NovoLOG) BEFORE MEALS AND HS SUBQ 02/05/18 16:30 03/07/18 16:29 02/07/18 11:40 Insulin Aspart (NovoLOG) 5 units NOVOTIAC SUBQ 02/05/18 16:50 03/07/18 16:49 02/07/18 11:39 Insulin Detemir (Levemir) 12 units BID SUBQ 02/05/18 18:00 03/07/18 17:59 02/07/18 10:08 Metoprolol Succinate (Toprol XL) 50 mg Q12HR ORAL 02/05/18 21:00 03/07/18 20:59 02/07/18 10:07 Morphine Sulfate (Morphine Sulfate) 2 mg Q4H PRN IVP Moderate Pain (Pain Scale 4-6) 02/05/18 13:30 02/12/18 13:29 Nitroglycerin (Ntg) 0.4 mg Q5M PRN SL Prn Chest Pain 02/05/18 13:30 03/07/18 13:29 Ondansetron HCl (Zofran) 4 mg Q6H PRN ORAL Nausea & Vomiting 02/05/18 13:30 03/07/18 13:29 Polyethylene Glycol (Miralax) 17 gm DAILYPRN PRN ORAL Constipation 02/05/18 13:30 03/07/18 13:29 Sevelamer Carbonate (Renvela) 800 mg THREE TIMES A DAY ORAL 02/05/18 18:00 03/07/18 17:59 02/07/18 13:17 Temazepam (Restoril) 15 mg HSPRN PRN ORAL Insomnia 02/05/18 13:30 02/12/18 13:29 Esdras Delgado MD Feb 07, 2018 14:32
--- NOTE | 2018-02-07 15:13 | Consultation ---
Consult Note Consult Note asked to eval for renal failure- Patrient known to me from his previous admissions 62-year-old male presents ED or evaluation of hematuria. Noticed today by nursing staff at [facility]. Patient has a suprapubic catheter. Patient is DO NOT RESUSCITATE. Patient is not on any blood thinners. Patient has encephalopathy due to prior suicide attempt and is unable to provide any additional history at this time. No signs of distress upon arrival. No other aggravating relieving factors. No other associated symptoms Allergies: CEFEPIME (Verified Allergy, Intermediate, Rash, 01/23/13) Past Medical History: DM, OR, CAD, asthma, COPD, psych hx, other - encephalopathy Past Medical History: No History, Except For Hx Cardiac Problems: Yes - anemia, CAD post stent placement [id number], nstemi MIx3 Hx Hypertension: Yes - left eye blindness, hypercholesterolemia Hx Asthma: Yes Hx COPD: Yes Hx Diabetes: Yes - DMII, hx dka Hx Cancer: Yes - kidney and panreas ca History Of Psychiatric Problem: Yes - Hx suicide attempt with insulin overdose , depression Hx Cerebrovascular Accident: Yes Hx Encephalitis: Yes - 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 ATTEMPT Hx Dizziness: Yes patient lethargic and poor historian Assessment/Plan Acute renal failure on chronic kidney disease Metabolic acidosis and HyperGlycemia Recurrent hematuria Probably UTI with a history of recurrent UTI Anemia due to acute blood loss( i.e. hematuria) and CKD Leukocytosis Suprapubic catheter Neurogenic bladder BPH Status post renal pancreatic transplant Elevated lipase Diabetes mellitus type 2 with hx of DKA Hypertension COPD/asthma Coronary artery disease with history of NSTEMI major depressive disorder with history of suicidal attempt encephalopathy Plan: IV Fluids Bicitra PO Anemia [place] Gastric support BS control patient DNR monitor renal parameters avoid nephrotoxics Luis Chambers MD Feb 07, 2018 15:13
[2018-02-07] MEDS ORDERED: Sodium Chloride 500ML 500 ML IV ONE (15:30)
[2018-02-07 16:00] VITALS: BP 143/69
[2018-02-07 16:37] LABS: ANION GAP 21 mmol/L (5-15); BLOOD UREA NITROGEN 79 mg/dL (7-18); CALCIUM 8.6 MG/DL (8.5-10.1); CARBON DIOXIDE 11 MMOL/L (21-32); CHLORIDE 112 MMOL/L (98-107); CREATININE 5.5 MG/DL (0.55-1.30); POTASSIUM 3.6 MMOL/L (3.5-5.1); SODIUM 143 MMOL/L (136-145)
[2018-02-07] MEDS: Ertapenem 0.5gm in NS 55ml IVPB SCH (17:54)
[2018-02-07] MEDS: Sodium Citrate 30ml ORAL SCH (18:16)
[2018-02-07 20:00] VITALS: BP 143/69
[2018-02-07] MEDS: Dyna-Hex 2% Top Sol 2oz TOPIC SCH (20:00)
--- NOTE | 2018-02-07 23:46 | Consultation ---
History of Present Illness General Date patient seen: Feb 06, 2018 Chief Complaint: Male Urogenital Problems Referring physician: dr Rosado Reason for Consultation: COPD/asthma Present Illness HPI 62-year-old white male with hx of depression and anxiety who is [facility], presents with chief complaint of blood in his urine. the pt is depressed and irritable uncooperative and refusing care Allergies: Coded Allergies: CEFEPIME (Verified Allergy, Intermediate, Rash, 01/23/13) Medication History Scheduled Amlodipine Besylate (Norvasc), 5 MG ORAL DAILY, (Reported) Atorvastatin Calcium* (Lipitor*), 10 MG ORAL BEDTIME Azathioprine* (Imuran*), 50 MG PO DAILY, (Reported) Duloxetine Hcl* (Cymbalta*), 30 MG ORAL DAILY, (Reported) Epoetin Jose (Epogen), 10,000 UNIT SUBQ THREE TIMES A WEEK, (Reported) Insulin Aspart (Novolog Flexpen), 6 UNITS SUBQ NOVOTIAC Insulin Detemir (Levemir Flexpen), 12 UNITS SUBQ BID Lansoprazole* (Prevacid*), 30 MG ORAL DAILY, (Reported) Lansoprazole* (Lansoprazole*), 30 MG ORAL DAILY, (Reported) Metoprolol Succinate* (Metoprolol Succinate*), 50 MG ORAL Q12HR, (Reported) Polyethylene Glycol* (Miralax*), 17 GM ORAL BEDTIME Sevelamer Carbonate* (Renvela*), 800 MG ORAL THREE TIMES A DAY, (Reported) Sevelamer Carbonate* (Renvela*), 800 MG ORAL THREE TIMES A DAY, (Reported) Sodium Citrate (Sod Citrate-Citric Acid Soln), 30 ML ORAL EVERY 6 HOURS, ( Reported) Warfarin Sod* (Coumadin*), 5 MG ORAL DAILY, (Reported) Scheduled PRN Acetaminophen (Acetaminophen), 650 MG ORAL Q6H PRN for Prn Headache/Temp > 101, (Reported) Acetaminophen* (Tylenol Extra Strength*), 500 MG ORAL Q6H PRN for Mild Pain/ Temp > 100.5, (Reported) Nitroglycerin (Nitroglycerin), 0.4 MG SL for Prn Chest Pain, (Reported) Ondansetron* (Zofran*), 4 MG ORAL Q6H PRN for Nausea & Vomiting, (Reported) Temazepam* (Restoril*), 15 MG ORAL BEDTIME PRN for Insomnia, (Reported) Patient History Limited by: medical condition History Provided By: Patient, Medical Record, PMD Healthcare decision maker Resuscitation status Do Not Resuscitate Advanced Directive on File No Past Medical/Surgical History Past Medical/Surgical History: (1) Fever (2) Hematemesis (3) Hypokalemia (4) Renal osteodystrophy (5) Gastrointestinal hemorrhage (6) Gastrointestinal hemorrhage (7) Bacteremia (8) Coagulopathy (9) Gastritis (10) Gastritis (11) GI bleeding (12) GI hemorrhage (13) Hypercholesteremia (14) Hyponatremia (15) Hypoparathyroidism (16) Pancreatitis (17) Retention, urine (18) Urine retention (19) Iron deficiency anemia (20) ESRD (end stage renal disease) (21) DVT (deep venous thrombosis) (22) Fall (23) Head trauma (24) Head trauma (25) Acidosis, metabolic (26) Colon polyps (27) Scrotal edema (28) Abnormal laboratory test result (29) Renal mass, right (30) RIVKA (acute kidney injury) (31) Laceration of lip (32) Bladder outlet obstruction (33) Excessive anticoagulation (34) Elevated lipase (35) DVT of axillary vein, 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 (37) Hyperglycemia due to type 2 diabetes mellitus (38) urinary retention (39) Sepsis (40) Neurogenic bladder (41) UTI (urinary tract infection) (42) Hematuria (43) BPH (benign prostatic hypertrophy) (44) Anemia (45) DKA (diabetic ketoacidoses) (46) Nephropathy, diabetic (47) Hyperparathyroidism (48) ATN (acute tubular necrosis) (49) Uncontrolled diabetes mellitus (50) CKD (chronic kidney disease), stage III (51) Suprapubic catheter (52) Diabetes mellitus out of control (53) BPH (benign prostatic hyperplasia) (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 difficile colitis (75) Staphylococcus aureus pneumonia (76) Hypernatremia (77) DM (diabetes mellitus) (78) Anemia (79) GI bleeding (80) DM (diabetes mellitus) (81) Acute hyperglycemia (82) Anemia (83) Hyponatremia (84) CKD (chronic kidney disease), stage III (85) Renal insufficiency (86) Dehydration (87) Coronary heart disease (88) Psychiatric disturbance (89) Pulmonary HTN (90) Acute on chronic renal failure (91) CAD (coronary artery disease) (92) HTN (hypertension) (93) Anemia in chronic kidney disease (94) Anemia in chronic kidney disease (95) Iron deficiency anemia Review of Systems Psychiatric: Reports: prior hx, anxiety, depressed feelings, emotional problems Physical Exam General Appearance: no apparent distress, alert Neurologic: oriented x 3, responsive, depressed affect Last 24 Hour Vital Signs Date Time Temp Pulse Resp B/P (MAP) Pulse Ox O2 Delivery O2 Flow Rate FiO2 02/07/18 20:59 63 143/69 02/07/18 20:00 97.3 63 20 143/69 (93) 94 97.3 02/07/18 16:00 98.9 75 19 143/69 (93) 98 98.9 02/07/18 12:00 98.8 68 19 115/55 (75) 96 98.8 02/07/18 10:07 87 105/67 02/07/18 10:06 87 105/67 02/07/18 09:00 Room Air 02/07/18 08:00 98.8 90 20 138/90 (106) 99 98.8 02/07/18 07:57 82 18 Room Air 21 02/07/18 04:00 99.0 71 18 119/60 (79) 99 99.0 02/07/18 01:01 66 20 98 Room Air 21 02/07/18 00:54 68 20 98 Room Air 21 02/07/18 00:54 36 02/07/18 00:00 98.9 66 18 159/82 (107) 99 98.9 Intake and Output 7/29/18 7/30/18 19:00 07:00 Intake Total 160 ml 120 ml Output Total 1400 ml 750 ml Balance -1240 ml -630 ml Intake Oral 160 ml 120 ml Output Urine Total 1400 ml 750 ml Laboratory Tests Test 02/07/18 06:00 02/07/18 16:19 White Blood Count 14.3 K/UL (4.8-10.8) H Red Blood Count 2.92 M/UL (4.70-6.10) L Hemoglobin 8.6 G/DL (14.2-18.0) L Hematocrit 27.3 % (42.0-52.0) L Mean Corpuscular Volume 94 FL (80-99) Mean Corpuscular Hemoglobin 29.4 PG (27.0-31.0) Mean Corpuscular Hemoglobin Concent 31.4 G/DL (32.0-36.0) L Red Cell Distribution Width 17.1 % (11.6-14.8) H Platelet Count 362 K/UL (150-450) Mean Platelet Volume 6.5 FL (6.5-10.1) Neutrophils (%) (Auto) 82.7 % (45.0-75.0) H Lymphocytes (%) (Auto) 11.3 % (20.0-45.0) L Monocytes (%) (Auto) 4.7 % (1.0-10.0) Eosinophils (%) (Auto) 0.7 % (0.0-3.0) Basophils (%) (Auto) 0.6 % (0.0-2.0) Sodium Level 139 MMOL/L (136-145) 143 MMOL/L (136-145) Potassium Level 3.9 MMOL/L (3.5-5.1) 3.6 MMOL/L (3.5-5.1) Chloride Level 107 MMOL/L (98-107) 112 MMOL/L (98-107) H Carbon Dioxide Level 8 MMOL/L (21-32) *L 11 MMOL/L (21-32) L Anion Gap 24 mmol/L (5-15) H 21 mmol/L (5-15) H Blood Urea Nitrogen 78 mg/dL (7-18) H 79 mg/dL (7-18) H Creatinine 5.7 MG/DL (0.55-1.30) H 5.5 MG/DL (0.55-1.30) H Estimat Glomerular Filtration Rate 10.1 mL/min (>60) 10.6 mL/min (>60) Glucose Level 410 MG/DL (74-106) #H 75 MG/DL (74-106) # Calcium Level 8.2 MG/DL (8.5-10.1) L 8.6 MG/DL (8.5-10.1) Amylase Level 81 U/L (25-115) Lipase 622 U/L (73-393) H C-Reactive Protein, Quantitative 0.8 mg/dL (0.00-0.90) Height (Feet): 5 Height (Inches): 8.00 Weight (Pounds): 162 Medications Current Medications Medications (Trade) Dose Ordered Sig/Dunia Route PRN Reason Start Time Stop Time Status Last Admin Dose Admin Acetaminophen (Tylenol) 650 mg Q4H PRN ORAL fever (temp>100.5F) 02/05/18 13:30 03/07/18 13:29 Albuterol/ Ipratropium (Albuterol/ Ipratropium) 3 ml Q4H PRN HHN Shortness of Breath 02/05/18 13:30 02/10/18 13:29 02/07/18 01:00 Chlorhexidine Gluconate (Eloisa-Hex 2%) 1 applic DAILY@2000 TOPIC 02/05/18 20:00 03/07/18 19:59 02/06/18 20:21 Clonidine HCl (Catapres Tab) 0.1 mg Q4H PRN ORAL bp over 165 syst 02/07/18 15:30 03/09/18 15:29 Dextrose (Dextrose 50%) 25 ml STAT PRN IV Hypoglycemia 02/05/18 14:15 03/07/18 14:14 Dextrose (Dextrose 50%) 50 ml STAT PRN IV Hypoglycemia 02/05/18 13:30 03/07/18 13:29 02/07/18 18:28 Duloxetine HCl (Cymbalta) 30 mg DAILY ORAL 02/06/18 09:00 03/08/18 08:59 02/07/18 10:07 Ertapenem 0.5 gm/ Sodium Chloride 55 ml @ 110 mls/hr Q24H IVPB 02/06/18 15:00 02/11/18 14:59 02/07/18 17:54 Insulin Aspart (NovoLOG) BEFORE MEALS AND HS SUBQ 02/05/18 16:30 03/07/18 16:29 02/07/18 11:40 Insulin Aspart (NovoLOG) 5 units NOVOTIAC SUBQ 02/05/18 16:50 03/07/18 16:49 02/07/18 16:48 Insulin Detemir (Levemir) 12 units BID SUBQ 02/05/18 18:00 03/07/18 17:59 02/07/18 10:08 Lorazepam (Ativan 2mg/ml 1ml) 0.5 mg ONCE ONCE IV 02/08/18 06:00 02/08/18 06:01 Metoprolol Succinate (Toprol XL) 50 mg Q12HR ORAL 02/05/18 21:00 03/07/18 20:59 02/07/18 20:59 Morphine Sulfate (Morphine Sulfate) 2 mg Q4H PRN IVP Moderate Pain (Pain Scale 4-6) 02/05/18 13:30 02/12/18 13:29 Nitroglycerin (Ntg) 0.4 mg Q5M PRN SL Prn Chest Pain 02/05/18 13:30 03/07/18 13:29 Ondansetron HCl (Zofran) 4 mg Q6H PRN ORAL Nausea & Vomiting 02/05/18 13:30 03/07/18 13:29 Polyethylene Glycol (Miralax) 17 gm DAILYPRN PRN ORAL Constipation 02/05/18 13:30 03/07/18 13:29 Sevelamer Carbonate (Renvela) 800 mg THREE TIMES A DAY ORAL 02/05/18 18:00 03/07/18 17:59 02/07/18 18:16 Sodium Chloride 1,000 ml @ 75 mls/hr [id number] IV 02/07/18 15:15 03/09/18 15:14 02/07/18 16:44 Sodium Citrate (Bicitra) 30 ml EVERY 6 HOURS ORAL 02/07/18 18:00 03/09/18 17:59 02/07/18 18:16 Temazepam (Restoril) 15 mg HSPRN PRN ORAL Insomnia 02/05/18 13:30 02/12/18 13:29 Assessment/Plan Status: stable Assessment/Plan mdd anxiety cont Cymbalta provided ro/Fatmata Kessler MD Feb 07, 2018 23:46
--- NOTE | 2018-02-07 23:47 | General Progress Note ---
Assessment/Plan Assessment/Plan mdd anxiety taper down Cymbalta provided ro/st start welbutin Subjective Date patient seen: Feb 07, 2018 Neurologic/Psychiatric: Reports: anxiety, depressed, emotional problems Allergies: Coded Allergies: CEFEPIME (Verified Allergy, Intermediate, Rash, 01/23/13) Objective Last 24 Hour Vital Signs Date Time Temp Pulse Resp B/P (MAP) Pulse Ox O2 Delivery O2 Flow Rate FiO2 02/07/18 20:59 63 143/69 02/07/18 20:00 97.3 63 20 143/69 (93) 94 97.3 02/07/18 16:00 98.9 75 19 143/69 (93) 98 98.9 02/07/18 12:00 98.8 68 19 115/55 (75) 96 98.8 02/07/18 10:07 87 105/67 02/07/18 10:06 87 105/67 02/07/18 09:00 Room Air 02/07/18 08:00 98.8 90 20 138/90 (106) 99 98.8 02/07/18 07:57 82 18 Room Air 21 02/07/18 04:00 99.0 71 18 119/60 (79) 99 99.0 02/07/18 01:01 66 20 98 Room Air 21 02/07/18 00:54 68 20 98 Room Air 21 02/07/18 00:54 36 02/07/18 00:00 98.9 66 18 159/82 (107) 99 98.9 Intake and Output 02/06/18 02/07/18 19:00 07:00 Intake Total 160 ml 120 ml Output Total 1400 ml 750 ml Balance -1240 ml -630 ml Intake Oral 160 ml 120 ml Output Urine Total 1400 ml 750 ml Laboratory Tests 02/07/18 06:00: White Blood Count 14.3H, Red Blood Count 2.92L, Hemoglobin 8.6L, Hematocrit 27.3L, Mean Corpuscular Volume 94, Mean Corpuscular Hemoglobin 29.4, Mean Corpuscular Hemoglobin Concent 31.4L, Red Cell Distribution Width 17.1H, Platelet Count 362, Mean Platelet Volume 6.5, Neutrophils (%) (Auto) 82.7H, Lymphocytes (%) (Auto) 11.3L, Monocytes (%) (Auto) 4.7, Eosinophils (%) (Auto) 0.7, Basophils (%) (Auto) 0.6, Sodium Level 139, Potassium Level 3.9, Chloride Level 107, Carbon Dioxide Level 8*L, Anion Gap 24H, Blood Urea Nitrogen 78H, Creatinine 5.7H, Estimat Glomerular Filtration Rate 10.1, Glucose Level 410#H, Calcium Level 8.2L, Amylase Level 81, Lipase 622H 02/07/18 16:19: Sodium Level 143, Potassium Level 3.6, Chloride Level 112H, Carbon Dioxide Level 11L, Anion Gap 21H, Blood Urea Nitrogen 79H, Creatinine 5.5H, Estimat Glomerular Filtration Rate 10.6, Glucose Level 75#, Calcium Level 8.6, C- Reactive Protein, Quantitative 0.8 Height (Feet): 5 Height (Inches): 8.00 Weight (Pounds): 162 General Appearance: no apparent distress, alert Neurologic: depressed affect Fatmata Lu MD Feb 07, 2018 23:47
[2018-02-08] VITALS: BP 144/76
[2018-02-08] MEDS: Sodium Citrate 30ml ORAL SCH ×6 (00:55→23:56)
[2018-02-08 04:00] VITALS: BP 175/79
[2018-02-08] MEDS ORDERED: LORazepam Inj 2mg/ml 1ml IV ONE (06:00)
[2018-02-08 06:29] LABS: BASOPHILS % (AUTO) 0.8 % (0.0-2.0); EOSINOPHILS % (AUTO) 0.7 % (0.0-3.0); HEMATOCRIT 27.9 % (42.0-52.0); HEMOGLOBIN 8.8 G/DL (14.2-18.0); LYMPHOCYTES % (AUTO) 11.2 % (20.0-45.0); MEAN CORPUSCULAR VOLUME 94 FL (80-99); MONOCYTES % (AUTO) 4.4 % (1.0-10.0); NEUTROPHILS % (AUTO) 82.9 % (45.0-75.0); PLATELET COUNT 400 K/UL (150-450); RED BLOOD COUNT 2.97 M/UL (4.70-6.10); RED CELL DISTRIBUTION WIDTH 16.7 % (11.6-14.8); WHITE BLOOD COUNT 15.6 K/UL (4.8-10.8)
[2018-02-08] MEDS: NovoLOG Insulin Flexpen SUBQ SCH ×7 (06:33→21:18)
[2018-02-08 07:12] LABS: % IRON SATURATION 52 % (15-50); IRON 71 ug/dL (50-175); TOTAL IRON BINDING CAPACITY 137 ug/dL (250-450)
[2018-02-08 07:18] LABS: ALANINE AMINOTRANSFERASE 12 U/L (12-78); ALBUMIN/GLOBULIN RATIO 0.8 (1.0-2.7); ALKALINE PHOSPHATASE 79 U/L (46-116); ANION GAP 21 mmol/L (5-15); ASPARTATE AMINO TRANSFERASE 5 U/L (15-37); BILIRUBIN,TOTAL 0.5 MG/DL (0.2-1.0); BLOOD UREA NITROGEN 74 mg/dL (7-18); CALCIUM 8.3 MG/DL (8.5-10.1); CARBON DIOXIDE 10 MMOL/L (21-32); CHLORIDE 108 MMOL/L (98-107); CHOLESTEROL 134 MG/DL (< 200); CREATINE KINASE 31 U/L (26-308); CREATININE 5.4 MG/DL (0.55-1.30); FERRITIN 721 NG/ML (8-388); GAMMA GLUTAMYL TRANSPEPTIDASE 7 U/L (5-85); HDL CHOLESTEROL 31 MG/DL (40-60); PHOSPHORUS 5.3 MG/DL (2.5-4.9); SODIUM 139 MMOL/L (136-145); TRIGLYCERIDES 154 MG/DL (30-150)
--- NOTE | 2018-02-08 07:51 | Urology Progress Note ---
Assessment/Plan Assessment/Plan 1. Hematuria, which is resolving. 2. Urinary retention. 3. BPH history. 4. Neurogenic bladder. 5. Pyuria with colonization. 6. Proteinuria. 7. Renal cyst. monitor clinically hand irrigate sp tube PRN abx as ordered cysto later I personally removed old sp tube new 16f cath placed, hand irrigated, position satisfactory Subjective Allergies: Coded Allergies: CEFEPIME (Verified Allergy, Intermediate, Rash, 01/23/13) Subjective all noted, intermittent gross hematuria, nurses hand irrigated hernandez PRN Objective Last 24 Hour Vital Signs Date Time Temp Pulse Resp B/P (MAP) Pulse Ox O2 Delivery O2 Flow Rate FiO2 02/08/18 05:22 175/79 02/08/18 04:00 98.2 74 20 175/79 (111) 96 98.2 02/08/18 00:00 98.1 76 20 144/76 (98) 97 98.1 02/07/18 21:00 Room Air 02/07/18 21:00 63 20 Room Air 21 02/07/18 20:59 63 143/69 02/07/18 20:00 97.3 63 20 143/69 (93) 94 97.3 02/07/18 16:00 98.9 75 19 143/69 (93) 98 98.9 02/07/18 12:00 98.8 68 19 115/55 (75) 96 98.8 02/07/18 10:07 87 105/67 02/07/18 10:06 87 105/67 02/07/18 09:00 Room Air 02/07/18 08:00 98.8 90 20 138/90 (106) 99 98.8 02/07/18 07:57 82 18 Room Air 21 Intake and Output 02/07/18 02/08/18 19:00 07:00 Intake Total 240 ml 200 ml Output Total 800 ml 300 ml Balance -560 ml -100 ml Intake Oral 240 ml Other 200 ml Output Urine Total 800 ml 300 ml Microbiology Date/Time Source Procedure Growth Status 02/05/18 13:06 Blood Blood Culture - Preliminary NO GROWTH AFTER 48 HOURS Resulted 02/05/18 12:41 Nasal Nares MRSA Culture - Final Staphylococcus Aureus - Mrsa Complete 02/05/18 12:00 Urine,Clean Catch Urine Culture - Final Providencia Stuartii Complete 02/05/18 12:41 Rectum VRE Culture - Final Enterococcus Faecalis - Vre Complete Current Medications Medications (Trade) Dose Ordered Sig/Dunia Route PRN Reason Start Time Stop Time Status Last Admin Dose Admin Acetaminophen (Tylenol) 650 mg Q4H PRN ORAL fever (temp>100.5F) 02/05/18 13:30 03/07/18 13:29 Albuterol/ Ipratropium (Albuterol/ Ipratropium) 3 ml Q4H PRN HHN Shortness of Breath 02/05/18 13:30 02/10/18 13:29 02/07/18 01:00 Bupropion HCl (Wellbutrin XL) 150 mg DAILY ORAL 02/08/18 09:00 03/10/18 08:59 Chlorhexidine Gluconate (Eloisa-Hex 2%) 1 applic DAILY@2000 TOPIC 02/05/18 20:00 03/07/18 19:59 02/06/18 20:21 Clonidine HCl (Catapres Tab) 0.1 mg Q4H PRN ORAL bp over 165 syst 02/07/18 15:30 03/09/18 15:29 02/08/18 05:22 Dextrose (Dextrose 50%) 25 ml STAT PRN IV Hypoglycemia 02/05/18 14:15 03/07/18 14:14 Dextrose (Dextrose 50%) 50 ml STAT PRN IV Hypoglycemia 02/05/18 13:30 03/07/18 13:29 02/07/18 18:28 Duloxetine HCl (Cymbalta) 30 mg DAILY ORAL 02/06/18 09:00 03/08/18 08:59 02/07/18 10:07 Ertapenem 0.5 gm/ Sodium Chloride 55 ml @ 110 mls/hr Q24H IVPB 02/06/18 15:00 02/11/18 14:59 02/07/18 17:54 Insulin Aspart (NovoLOG) BEFORE MEALS AND HS SUBQ 02/05/18 16:30 03/07/18 16:29 02/08/18 06:33 Insulin Aspart (NovoLOG) 5 units NOVOTIAC SUBQ 02/05/18 16:50 03/07/18 16:49 02/08/18 06:34 Insulin Detemir (Levemir) 12 units BID SUBQ 02/05/18 18:00 03/07/18 17:59 02/07/18 10:08 Metoprolol Succinate (Toprol XL) 50 mg Q12HR ORAL 02/05/18 21:00 03/07/18 20:59 02/07/18 20:59 Morphine Sulfate (Morphine Sulfate) 2 mg Q4H PRN IVP Moderate Pain (Pain Scale 4-6) 02/05/18 13:30 02/12/18 13:29 Nitroglycerin (Ntg) 0.4 mg Q5M PRN SL Prn Chest Pain 02/05/18 13:30 03/07/18 13:29 Ondansetron HCl (Zofran) 4 mg Q6H PRN ORAL Nausea & Vomiting 02/05/18 13:30 03/07/18 13:29 Polyethylene Glycol (Miralax) 17 gm DAILYPRN PRN ORAL Constipation 02/05/18 13:30 03/07/18 13:29 Sevelamer Carbonate (Renvela) 800 mg THREE TIMES A DAY ORAL 02/05/18 18:00 03/07/18 17:59 02/07/18 18:16 Sodium Chloride 1,000 ml @ 75 mls/hr [id number] IV 02/07/18 15:15 03/09/18 15:14 02/08/18 06:22 Sodium Citrate (Bicitra) 30 ml EVERY 6 HOURS ORAL 02/07/18 18:00 03/09/18 17:59 02/07/18 18:16 Temazepam (Restoril) 15 mg HSPRN PRN ORAL Insomnia 02/05/18 13:30 02/12/18 13:29 Laboratory Tests 02/07/18 16:19: Sodium Level 143, Potassium Level 3.6, Chloride Level 112H, Carbon Dioxide Level 11L, Anion Gap 21H, Blood Urea Nitrogen 79H, Creatinine 5.5H, Estimat Glomerular Filtration Rate 10.6, Glucose Level 75#, Calcium Level 8.6, C- Reactive Protein, Quantitative 0.8 02/08/18 05:05: Sodium Level 139, Potassium Level 4.0, Chloride Level 108H, Carbon Dioxide Level 10L, Anion Gap 21H, Blood Urea Nitrogen 74H, Creatinine 5.4H, Estimat Glomerular Filtration Rate 10.8, Glucose Level 425#H, Calcium Level 8.3L, White Blood Count 15.6H, Red Blood Count 2.97L, Hemoglobin 8.8L, Hematocrit 27.9L, Mean Corpuscular Volume 94, Mean Corpuscular Hemoglobin 29.6, Mean Corpuscular Hemoglobin Concent 31.6L, Red Cell Distribution Width 16.7H, Platelet Count 400 , Mean Platelet Volume 6.3L, Neutrophils (%) (Auto) 82.9H, Lymphocytes (%) (Auto ) 11.2L, Monocytes (%) (Auto) 4.4, Eosinophils (%) (Auto) 0.7, Basophils (%) ( Auto) 0.8, Hemoglobin A1c 6.6H, Uric Acid 6.1, Phosphorus Level 5.3H, Magnesium Level 1.9, Iron Level 71, Total Iron Binding Capacity 137L, Percent Iron Saturation 52H, Unsaturated Iron Binding 66L, Ferritin 721H, Total Bilirubin 0.5 , Gamma Glutamyl Transpeptidase 7, Aspartate Amino Transf (AST/SGOT) 5L, Alanine Aminotransferase (ALT/SGPT) 12, Alkaline Phosphatase 79, Total Creatine Kinase 31, Troponin I 0.000, Pro-B-Type Natriuretic Peptide 1650H, Total Protein 6.9, Albumin 3.0L, Globulin 3.9, Albumin/Globulin Ratio 0.8L, Triglycerides Level 154H, Cholesterol Level 134, LDL Cholesterol 90, HDL Cholesterol 31L, Cholesterol/HDL Ratio 4.3, Lipase 278, Vitamin B12 Level 491, Folate 19.4, Thyroid Stimulating Hormone (TSH) 2.004 Height (Feet): 5 Height (Inches): 8.00 Weight (Pounds): 162 Objective exam stable, sp tube in place, urine carly [email or web address] Feb 08, 2018 07:51
--- NOTE | 2018-02-08 07:57 | Infectious Diseases Prog Note ---
Assessment/Plan Assessment/Plan Abx: Ertapenem x1 02/05 Linezolid x1 02/05 IV Vancomycin Assessment: Hematuria, recurrent R/o UTI - Cx growing Providencia sensitive to Ertapenem - u/a wbc 10-15, RBC TNCT, nit neg, leuk +3 - Blood Cultures 02/05/18 - NGTD Leukocytosis - Persistent likely 2/2 to UTI but slowly responsive to abx. Monitor as patient hemodynamically stable - hx of recent probable ESBL P. mirabailis UTI s/p Rx 11/2017 -. hx of recent hematuria, penile extensive hemorrhage with surrounding cellulitis 09/2016, s/p Rx -s/p suprapubic cystostomy 09/28; re inserted 10/01 after patient pull it off -. History of coag-negative Staph bacteremia in July 2007, AMY was negative for endocarditis (due to bacteremia due to the PICC line infection). -. History of sepsis. -. History of CKD. -. History of renal and pancreas transplant about 10 years ago. -hx of prior HD -. History of enterococcal bacteremia in May 2017. -. History of suicidal attempt. -. History rof ME/CAD. -. Anemia. -. History of colon polyps. -. Hypertension. - Diabetes. Plan: -Continue empiric IV Ertapenem #3 for Providencia in urine -12/02 SP Ertapenem #5 -11/29 SP IV Vancomycin #4, -11/28 SP Aztreonam #3 -10/06 SP Doxycycline and Levaquin #4 -10/02 SP IV Vanco/Aztreonam #6 -09/10/17 SP Daptomycin #34 -Monitor leukocytosis -f/u Bcx - NGTD -Monitor CBC/CMP, temperatures -aspiration precautions Thank you for this consultation. Will continue to follow along with you. Subjective Allergies: Coded Allergies: CEFEPIME (Verified Allergy, Intermediate, Rash, 01/23/13) Subjective No acute events Denies N/V/D and fever Objective Vital Signs Last 24 Hour Vital Signs Date Time Temp Pulse Resp B/P (MAP) Pulse Ox O2 Delivery O2 Flow Rate FiO2 02/08/18 05:22 175/79 02/08/18 04:00 98.2 74 20 175/79 (111) 96 98.2 7/31/18 00:00 98.1 76 20 144/76 (98) 97 98.1 02/07/18 21:00 Room Air 02/07/18 21:00 63 20 Room Air 21 02/07/18 20:59 63 143/69 02/07/18 20:00 97.3 63 20 143/69 (93) 94 97.3 02/07/18 16:00 98.9 75 19 143/69 (93) 98 98.9 02/07/18 12:00 98.8 68 19 115/55 (75) 96 98.8 02/07/18 10:07 87 105/67 02/07/18 10:06 87 105/67 02/07/18 09:00 Room Air 02/07/18 08:00 98.8 90 20 138/90 (106) 99 98.8 02/07/18 07:57 82 18 Room Air 21 Height (Feet): 5 Height (Inches): 8.00 Weight (Pounds): 162 Objective General Appearance: no apparent distress, Head: normocephalic Eyes: bilateral eye normal inspection, bilateral eye PERRL ENT: normal ENT inspection Neck: normal inspection Respiratory: chest non-tender, lungs clear, normal breath sounds, speaking full sentences Cardiovascular regular rate, rhythm, no edema Gastrointestinal: other - suprapubic catheter site C/D/I Genitourinary: no CVA tenderness Musculoskeletal: normal inspection Skin: normal inspection Microbiology Date/Time Source Procedure Growth Status 02/05/18 13:06 Blood Blood Culture - Preliminary NO GROWTH AFTER 48 HOURS Resulted 02/05/18 12:50 Blood Blood Culture - Preliminary NO GROWTH AFTER 48 HOURS Resulted 02/05/18 12:41 Nasal Nares MRSA Culture - Final Staphylococcus Aureus - Mrsa Complete 02/05/18 12:00 Urine,Clean Catch Urine Culture - Final Providencia Stuartii Complete 02/05/18 12:41 Rectum VRE Culture - Final Enterococcus Faecalis - Vre Complete 02/05/18 12:41 Rectum - Final NO CARBAPENEM-RESISTANT ENTEROBACTERI... Complete Laboratory Tests Test 02/07/18 16:19 02/08/18 05:05 Sodium Level 143 MMOL/L (136-145) 139 MMOL/L (136-145) Potassium Level 3.6 MMOL/L (3.5-5.1) 4.0 MMOL/L (3.5-5.1) Chloride Level 112 MMOL/L (98-107) H 108 MMOL/L (98-107) H Carbon Dioxide Level 11 MMOL/L (21-32) L 10 MMOL/L (21-32) L Anion Gap 21 mmol/L (5-15) H 21 mmol/L (5-15) H Blood Urea Nitrogen 79 mg/dL (7-18) H 74 mg/dL (7-18) H Creatinine 5.5 MG/DL (0.55-1.30) H 5.4 MG/DL (0.55-1.30) H Estimat Glomerular Filtration Rate 10.6 mL/min (>60) 10.8 mL/min (>60) Glucose Level 75 MG/DL (74-106) # 425 MG/DL (74-106) #H Calcium Level 8.6 MG/DL (8.5-10.1) 8.3 MG/DL (8.5-10.1) L C-Reactive Protein, Quantitative 0.8 mg/dL (0.00-0.90) White Blood Count 15.6 K/UL (4.8-10.8) H Red Blood Count 2.97 M/UL (4.70-6.10) L Hemoglobin 8.8 G/DL (14.2-18.0) L Hematocrit 27.9 % (42.0-52.0) L Mean Corpuscular Volume 94 FL (80-99) Mean Corpuscular Hemoglobin 29.6 PG (27.0-31.0) Mean Corpuscular Hemoglobin Concent 31.6 G/DL (32.0-36.0) L Red Cell Distribution Width 16.7 % (11.6-14.8) H Platelet Count 400 K/UL (150-450) Mean Platelet Volume 6.3 FL (6.5-10.1) L Neutrophils (%) (Auto) 82.9 % (45.0-75.0) H Lymphocytes (%) (Auto) 11.2 % (20.0-45.0) L Monocytes (%) (Auto) 4.4 % (1.0-10.0) Eosinophils (%) (Auto) 0.7 % (0.0-3.0) Basophils (%) (Auto) 0.8 % (0.0-2.0) Hemoglobin A1c 6.6 % (4.3-6.0) H Uric Acid 6.1 MG/DL (2.6-7.2) Phosphorus Level 5.3 MG/DL (2.5-4.9) H Magnesium Level 1.9 MG/DL (1.8-2.4) Iron Level 71 ug/dL (50-175) Total Iron Binding Capacity 137 ug/dL (250-450) L Percent Iron Saturation 52 % (15-50) H Unsaturated Iron Binding 66 ug/dL (112-346) L Ferritin 721 NG/ML (8-388) H Total Bilirubin 0.5 MG/DL (0.2-1.0) Gamma Glutamyl Transpeptidase 7 U/L (5-85) Aspartate Amino Transf (AST/SGOT) 5 U/L (15-37) L Alanine Aminotransferase (ALT/SGPT) 12 U/L (12-78) Alkaline Phosphatase 79 U/L (46-116) Total Creatine Kinase 31 U/L (26-308) Troponin I 0.000 ng/mL (0.000-0.056) Pro-B-Type Natriuretic Peptide 1650 pg/mL (0-125) H Total Protein 6.9 G/DL (6.4-8.2) Albumin 3.0 G/DL (3.4-5.0) L Globulin 3.9 g/dL Albumin/Globulin Ratio 0.8 (1.0-2.7) L Triglycerides Level 154 MG/DL (30-150) H Cholesterol Level 134 MG/DL (< 200) LDL Cholesterol 90 mg/dL (<100) HDL Cholesterol 31 MG/DL (40-60) L Cholesterol/HDL Ratio 4.3 (3.3-4.4) Lipase 278 U/L (73-393) Vitamin B12 Level 491 PG/ML (193-986) Folate 19.4 NG/ML (8.6-58.9) Thyroid Stimulating Hormone (TSH) 2.004 uiU/mL (0.358-3.740) Current Medications Medications (Trade) Dose Ordered Sig/Dunia Route PRN Reason Start Time Stop Time Status Last Admin Dose Admin Acetaminophen (Tylenol) 650 mg Q4H PRN ORAL fever (temp>100.5F) 02/05/18 13:30 03/07/18 13:29 Albuterol/ Ipratropium (Albuterol/ Ipratropium) 3 ml Q4H PRN HHN Shortness of Breath 02/05/18 13:30 02/10/18 13:29 02/07/18 01:00 Bupropion HCl (Wellbutrin XL) 150 mg DAILY ORAL 02/08/18 09:00 03/10/18 08:59 Chlorhexidine Gluconate (Eloisa-Hex 2%) 1 applic DAILY@2000 TOPIC 02/05/18 20:00 03/07/18 19:59 02/06/18 20:21 Clonidine HCl (Catapres Tab) 0.1 mg Q4H PRN ORAL bp over 165 syst 02/07/18 15:30 03/09/18 15:29 02/08/18 05:22 Dextrose (Dextrose 50%) 25 ml STAT PRN IV Hypoglycemia 02/05/18 14:15 03/07/18 14:14 Dextrose (Dextrose 50%) 50 ml STAT PRN IV Hypoglycemia 02/05/18 13:30 03/07/18 13:29 02/07/18 18:28 Duloxetine HCl (Cymbalta) 30 mg DAILY ORAL 02/06/18 09:00 03/08/18 08:59 02/07/18 10:07 Ertapenem 0.5 gm/ Sodium Chloride 55 ml @ 110 mls/hr Q24H IVPB 02/06/18 15:00 02/11/18 14:59 02/07/18 17:54 Insulin Aspart (NovoLOG) BEFORE MEALS AND HS SUBQ 02/05/18 16:30 03/07/18 16:29 02/08/18 06:33 Insulin Aspart (NovoLOG) 5 units NOVOTIAC SUBQ 02/05/18 16:50 03/07/18 16:49 02/08/18 06:34 Insulin Detemir (Levemir) 12 units BID SUBQ 02/05/18 18:00 03/07/18 17:59 02/07/18 10:08 Metoprolol Succinate (Toprol XL) 50 mg Q12HR ORAL 02/05/18 21:00 03/07/18 20:59 02/07/18 20:59 Morphine Sulfate (Morphine Sulfate) 2 mg Q4H PRN IVP Moderate Pain (Pain Scale 4-6) 02/05/18 13:30 02/12/18 13:29 Nitroglycerin (Ntg) 0.4 mg Q5M PRN SL Prn Chest Pain 02/05/18 13:30 03/07/18 13:29 Ondansetron HCl (Zofran) 4 mg Q6H PRN ORAL Nausea & Vomiting 02/05/18 13:30 03/07/18 13:29 Polyethylene Glycol (Miralax) 17 gm DAILYPRN PRN ORAL Constipation 02/05/18 13:30 03/07/18 13:29 Sevelamer Carbonate (Renvela) 800 mg THREE TIMES A DAY ORAL 02/05/18 18:00 03/07/18 17:59 02/07/18 18:16 Sodium Chloride 1,000 ml @ 75 mls/hr [id number] IV 02/07/18 15:15 03/09/18 15:14 02/08/18 06:22 Sodium Citrate (Bicitra) 30 ml EVERY 6 HOURS ORAL 02/07/18 18:00 03/09/18 17:59 02/07/18 18:16 Temazepam (Restoril) 15 mg HSPRN PRN ORAL Insomnia 02/05/18 13:30 02/12/18 13:29 William Caputo M.D. Feb 08, 2018 07:57
[2018-02-08 08:00] VITALS: BP 91/37
--- NOTE | 2018-02-08 08:06 | General Progress Note ---
Assessment/Plan Problem List: (1) Vitamin D deficiency ICD Codes: E55.9 - Vitamin D deficiency, unspecified SNOMED: 54158723 (2) Retinopathy, diabetic, left eye ICD Codes: E11.319 - Type 2 diabetes mellitus with unspecified diabetic retinopathy without macular edema SNOMED: 8389782, 98326454 (3) Diabetes mellitus out of control ICD Codes: E11.65 - Type 2 diabetes mellitus with hyperglycemia SNOMED: 44970734, 479960249 (4) Renal insufficiency ICD Codes: N28.9 - Disorder of kidney and ureter, unspecified SNOMED: 893012379 (5) Psychiatric disturbance ICD Codes: F99 - Psychiatric disturbance SNOMED: 36445183 (6) HTN (hypertension) ICD Codes: I10 - HTN (hypertension) SNOMED: 78208257 (7) DKA (diabetic ketoacidoses) ICD Codes: E13.10 - Other specified diabetes mellitus with ketoacidosis without coma SNOMED: 861884122 Assessment/Plan am glucose elevated this morning - he missed Levemir dose last night order given to RN: do not hold the Levemir unless Dr Jacques is notified continue Levemir and Novolog as scheduled for now Subjective ROS Limited/Unobtainable: Yes Allergies: Coded Allergies: CEFEPIME (Verified Allergy, Intermediate, Rash, 01/23/13) Subjective events noted Objective Last 24 Hour Vital Signs Date Time Temp Pulse Resp B/P (MAP) Pulse Ox O2 Delivery O2 Flow Rate FiO2 02/08/18 05:22 175/79 02/08/18 04:00 98.2 74 20 175/79 (111) 96 98.2 02/08/18 00:00 98.1 76 20 144/76 (98) 97 98.1 02/07/18 21:00 Room Air 02/07/18 21:00 63 20 Room Air 21 02/07/18 20:59 63 143/69 02/07/18 20:00 97.3 63 20 143/69 (93) 94 97.3 02/07/18 16:00 98.9 75 19 143/69 (93) 98 98.9 02/07/18 12:00 98.8 68 19 115/55 (75) 96 98.8 02/07/18 10:07 87 105/67 02/07/18 10:06 87 105/67 02/07/18 09:00 Room Air Intake and Output 02/07/18 02/08/18 19:00 07:00 Intake Total 240 ml 200 ml Output Total 800 ml 300 ml Balance -560 ml -100 ml Intake Oral 240 ml Other 200 ml Output Urine Total 800 ml 300 ml Laboratory Tests 02/07/18 16:19: Sodium Level 143, Potassium Level 3.6, Chloride Level 112H, Carbon Dioxide Level 11L, Anion Gap 21H, Blood Urea Nitrogen 79H, Creatinine 5.5H, Estimat Glomerular Filtration Rate 10.6, Glucose Level 75#, Calcium Level 8.6, C- Reactive Protein, Quantitative 0.8 02/08/18 05:05: Sodium Level 139, Potassium Level 4.0, Chloride Level 108H, Carbon Dioxide Level 10L, Anion Gap 21H, Blood Urea Nitrogen 74H, Creatinine 5.4H, Estimat Glomerular Filtration Rate 10.8, Glucose Level 425#H, Calcium Level 8.3L, White Blood Count 15.6H, Red Blood Count 2.97L, Hemoglobin 8.8L, Hematocrit 27.9L, Mean Corpuscular Volume 94, Mean Corpuscular Hemoglobin 29.6, Mean Corpuscular Hemoglobin Concent 31.6L, Red Cell Distribution Width 16.7H, Platelet Count 400 , Mean Platelet Volume 6.3L, Neutrophils (%) (Auto) 82.9H, Lymphocytes (%) (Auto ) 11.2L, Monocytes (%) (Auto) 4.4, Eosinophils (%) (Auto) 0.7, Basophils (%) ( Auto) 0.8, Hemoglobin A1c 6.6H, Uric Acid 6.1, Phosphorus Level 5.3H, Magnesium Level 1.9, Iron Level 71, Total Iron Binding Capacity 137L, Percent Iron Saturation 52H, Unsaturated Iron Binding 66L, Ferritin 721H, Total Bilirubin 0.5 , Gamma Glutamyl Transpeptidase 7, Aspartate Amino Transf (AST/SGOT) 5L, Alanine Aminotransferase (ALT/SGPT) 12, Alkaline Phosphatase 79, Total Creatine Kinase 31, Troponin I 0.000, Pro-B-Type Natriuretic Peptide 1650H, Total Protein 6.9, Albumin 3.0L, Globulin 3.9, Albumin/Globulin Ratio 0.8L, Triglycerides Level 154H, Cholesterol Level 134, LDL Cholesterol 90, HDL Cholesterol 31L, Cholesterol/HDL Ratio 4.3, Lipase 278, Vitamin B12 Level 491, Folate 19.4, Thyroid Stimulating Hormone (TSH) 2.004 Height (Feet): 5 Height (Inches): 8.00 Weight (Pounds): 162 General Appearance: no apparent distress Cardiovascular: normal rate Respiratory/Chest: lungs clear Abdomen: normal bowel sounds Pelvis: normal external exam Objective Current Medications Medications (Trade) Dose Ordered Sig/Dunia Route PRN Reason Start Time Stop Time Status Last Admin Dose Admin Acetaminophen (Tylenol) 650 mg Q4H PRN ORAL fever (temp>100.5F) 02/05/18 13:30 03/07/18 13:29 Albuterol/ Ipratropium (Albuterol/ Ipratropium) 3 ml Q4H PRN HHN Shortness of Breath 02/05/18 13:30 02/10/18 13:29 02/07/18 01:00 Bupropion HCl (Wellbutrin XL) 150 mg DAILY ORAL 02/08/18 09:00 03/10/18 08:59 Chlorhexidine Gluconate (Eloisa-Hex 2%) 1 applic DAILY@2000 TOPIC 02/05/18 20:00 03/07/18 19:59 02/06/18 20:21 Clonidine HCl (Catapres Tab) 0.1 mg Q4H PRN ORAL bp over 165 syst 02/07/18 15:30 03/09/18 15:29 02/08/18 05:22 Dextrose (Dextrose 50%) 25 ml STAT PRN IV Hypoglycemia 02/05/18 14:15 03/07/18 14:14 Dextrose (Dextrose 50%) 50 ml STAT PRN IV Hypoglycemia 02/05/18 13:30 03/07/18 13:29 02/07/18 18:28 Duloxetine HCl (Cymbalta) 30 mg DAILY ORAL 02/06/18 09:00 03/08/18 08:59 02/07/18 10:07 Ertapenem 0.5 gm/ Sodium Chloride 55 ml @ 110 mls/hr Q24H IVPB 02/06/18 15:00 02/11/18 14:59 02/07/18 17:54 Insulin Aspart (NovoLOG) BEFORE MEALS AND HS SUBQ 02/05/18 16:30 03/07/18 16:29 02/08/18 06:33 Insulin Aspart (NovoLOG) 5 units NOVOTIAC SUBQ 02/05/18 16:50 03/07/18 16:49 02/08/18 06:34 Insulin Detemir (Levemir) 12 units BID SUBQ 02/05/18 18:00 03/07/18 17:59 02/07/18 10:08 Metoprolol Succinate (Toprol XL) 50 mg Q12HR ORAL 02/05/18 21:00 03/07/18 20:59 02/07/18 20:59 Morphine Sulfate (Morphine Sulfate) 2 mg Q4H PRN IVP Moderate Pain (Pain Scale 4-6) 02/05/18 13:30 02/12/18 13:29 Nitroglycerin (Ntg) 0.4 mg Q5M PRN SL Prn Chest Pain 02/05/18 13:30 03/07/18 13:29 Ondansetron HCl (Zofran) 4 mg Q6H PRN ORAL Nausea & Vomiting 02/05/18 13:30 03/07/18 13:29 Polyethylene Glycol (Miralax) 17 gm DAILYPRN PRN ORAL Constipation 02/05/18 13:30 03/07/18 13:29 Sevelamer Carbonate (Renvela) 800 mg THREE TIMES A DAY ORAL 02/05/18 18:00 03/07/18 17:59 02/07/18 18:16 Sodium Chloride 1,000 ml @ 75 mls/hr [id number] IV 02/07/18 15:15 03/09/18 15:14 02/08/18 06:22 Sodium Citrate (Bicitra) 30 ml EVERY 6 HOURS ORAL 02/07/18 18:00 03/09/18 17:59 02/07/18 18:16 Temazepam (Restoril) 15 mg HSPRN PRN ORAL Insomnia 02/05/18 13:30 02/12/18 13:29 Item Value Date Time Bedside Blood Glucose 475 mg/dl H 02/07/18 0700 Bedside Blood Glucose 395 mg/dl H 02/06/18 2100 Bedside Blood Glucose 69 mg/dl L 02/06/18 1630 Bedside Blood Glucose 140 mg/dl H 02/06/18 1224 Bedside Blood Glucose 276 mg/dl H 02/06/18 0818 Bedside Blood Glucose 276 mg/dl H 02/06/18 0650 Bedside Blood Glucose 425 mg/dl H 02/08/18 0634 Bedside Blood Glucose 110 mg/dl 02/07/18 2100 Bedside Blood Glucose 49 mg/dl L 02/07/18 1828 Bedside Blood Glucose 111 mg/dl 02/07/18 1441 Bedside Blood Glucose 475 mg/dl H 02/07/18 1008 Bedside Blood Glucose 475 mg/dl H 02/07/18 0630 [place] Jacques MD Feb 08, 2018 08:06
[2018-02-08] MEDS: DULoxetine 30mg cap ORAL SCH (08:28)
[2018-02-08] MEDS: BuPROPion XL 150mg tab ORAL SCH (08:28)
[2018-02-08] MEDS: Renvela 800mg Pkt ORAL SCH ×3 (08:33→17:49)
[2018-02-08] MEDS: Metoprolol Succinate XL 50mg tab ORAL SCH ×2 (08:34→21:17)
[2018-02-08] MEDS: Levemir Flexpen SUBQ SCH ×2 (08:44→17:52)
[2018-02-08] MEDS ORDERED: HydrALAZINE 25mg tab ORAL PRN (09:30)
--- NOTE | 2018-02-08 09:33 | Nephrology Progress Note ---
Assessment/Plan Problem List: (1) Acute on chronic renal failure (2) Metabolic acidosis due to diabetes mellitus Assessment: and due to Uremia (3) Hematuria (4) BPH (benign prostatic hypertrophy) (5) Anemia (6) Nephropathy, diabetic Assessment Acute renal failure on chronic kidney disease Metabolic acidosis and HyperGlycemia Recurrent hematuria Probably UTI with a history of recurrent UTI Anemia due to acute blood loss( i.e. hematuria) and CKD Leukocytosis Suprapubic catheter Neurogenic bladder BPH Status post renal pancreatic transplant Elevated lipase, lowering Diabetes mellitus type 2 with hx of DKA Hypertension COPD/asthma Coronary artery disease with history of NSTEMI major depressive disorder with history of suicidal attempt encephalopathy Plan change diet to renal IV Fluids Bicitra PO Anemia [place], EPO Gastric support BS control patient DNR monitor renal parameters avoid nephrotoxics will discuss with DPOA / Decision maker Subjective ROS Limited/Unobtainable: No Constitutional: Reports: malaise, weakness Objective Objective Last 24 Hour Vital Signs Date Time Temp Pulse Resp B/P (MAP) Pulse Ox O2 Delivery O2 Flow Rate FiO2 02/08/18 08:34 61 91/37 02/08/18 07:30 67 16 Room Air 21 02/08/18 05:22 175/79 02/08/18 04:00 98.2 74 20 175/79 (111) 96 98.2 02/08/18 00:00 98.1 76 20 144/76 (98) 97 98.1 02/07/18 21:00 Room Air 02/07/18 21:00 63 20 Room Air 21 02/07/18 20:59 63 143/69 02/07/18 20:00 97.3 63 20 143/69 (93) 94 97.3 02/07/18 16:00 98.9 75 19 143/69 (93) 98 98.9 02/07/18 12:00 98.8 68 19 115/55 (75) 96 98.8 02/07/18 10:07 87 105/67 02/07/18 10:06 87 105/67 Intake and Output 02/07/18 02/08/18 19:00 07:00 Intake Total 240 ml 200 ml Output Total 800 ml 300 ml Balance -560 ml -100 ml Intake Oral 240 ml Other 200 ml Output Urine Total 800 ml 300 ml Laboratory Tests 02/07/18 16:19: Sodium Level 143, Potassium Level 3.6, Chloride Level 112H, Carbon Dioxide Level 11L, Anion Gap 21H, Blood Urea Nitrogen 79H, Creatinine 5.5H, Estimat Glomerular Filtration Rate 10.6, Glucose Level 75#, Calcium Level 8.6, C- Reactive Protein, Quantitative 0.8 02/08/18 05:05: Sodium Level 139, Potassium Level 4.0, Chloride Level 108H, Carbon Dioxide Level 10L, Anion Gap 21H, Blood Urea Nitrogen 74H, Creatinine 5.4H, Estimat Glomerular Filtration Rate 10.8, Glucose Level 425#H, Calcium Level 8.3L, White Blood Count 15.6H, Red Blood Count 2.97L, Hemoglobin 8.8L, Hematocrit 27.9L, Mean Corpuscular Volume 94, Mean Corpuscular Hemoglobin 29.6, Mean Corpuscular Hemoglobin Concent 31.6L, Red Cell Distribution Width 16.7H, Platelet Count 400 , Mean Platelet Volume 6.3L, Neutrophils (%) (Auto) 82.9H, Lymphocytes (%) (Auto ) 11.2L, Monocytes (%) (Auto) 4.4, Eosinophils (%) (Auto) 0.7, Basophils (%) ( Auto) 0.8, Hemoglobin A1c 6.6H, Uric Acid 6.1, Phosphorus Level 5.3H, Magnesium Level 1.9, Iron Level 71, Total Iron Binding Capacity 137L, Percent Iron Saturation 52H, Unsaturated Iron Binding 66L, Ferritin 721H, Total Bilirubin 0.5 , Gamma Glutamyl Transpeptidase 7, Aspartate Amino Transf (AST/SGOT) 5L, Alanine Aminotransferase (ALT/SGPT) 12, Alkaline Phosphatase 79, Total Creatine Kinase 31, Troponin I 0.000, Pro-B-Type Natriuretic Peptide 1650H, Total Protein 6.9, Albumin 3.0L, Globulin 3.9, Albumin/Globulin Ratio 0.8L, Triglycerides Level 154H, Cholesterol Level 134, LDL Cholesterol 90, HDL Cholesterol 31L, Cholesterol/HDL Ratio 4.3, Lipase 278, Vitamin B12 Level 491, Folate 19.4, Thyroid Stimulating Hormone (TSH) 2.004 Height (Feet): 5 Height (Inches): 8.00 Weight (Pounds): 162 Luis Chambers MD Feb 08, 2018 09:33
[2018-02-08] MEDS ORDERED: Sodium Chloride 500ML 500 ML IV ONE (10:00)
[2018-02-08 12:00] VITALS: BP 112/46
--- NOTE | 2018-02-08 12:46 | Pulmonology Progress Note ---
Assessment/Plan Problems: (1) Hematuria (2) Pulmonary HTN (3) Encephalopathy acute (4) Acute on chronic renal failure (5) Acute hyperglycemia (6) Depression, major (7) Anemia in chronic kidney disease (8) Suprapubic catheter Assessment/Plan BS still high iv fluids check electrolytes insulin f/u by Nephrology sliding scale psych to follow check h/h prbc prn Subjective ROS Limited/Unobtainable: No Constitutional: Reports: no symptoms HEENT: Repors: no symptoms Respiratory: Reports: no symptoms Allergies: Coded Allergies: CEFEPIME (Verified Allergy, Intermediate, Rash, 01/23/13) Objective Last 24 Hour Vital Signs Date Time Temp Pulse Resp B/P (MAP) Pulse Ox O2 Delivery O2 Flow Rate FiO2 02/08/18 12:00 98.0 55 18 112/46 (68) 100 98.0 02/08/18 09:00 Room Air 02/08/18 08:34 61 91/37 02/08/18 08:00 98.3 61 18 91/37 (55) 96 98.3 02/08/18 07:30 67 16 Room Air 21 02/08/18 05:22 175/79 02/08/18 04:00 98.2 74 20 175/79 (111) 96 98.2 02/08/18 00:00 98.1 76 20 144/76 (98) 97 98.1 02/07/18 21:00 Room Air 02/07/18 21:00 63 20 Room Air 21 02/07/18 20:59 63 143/69 02/07/18 20:00 97.3 63 20 143/69 (93) 94 97.3 02/07/18 16:00 98.9 75 19 143/69 (93) 98 98.9 Intake and Output 02/07/18 02/08/18 19:00 07:00 Intake Total 240 ml 200 ml Output Total 800 ml 300 ml Balance -560 ml -100 ml Intake Oral 240 ml Other 200 ml Output Urine Total 800 ml 300 ml General Appearance: WD/WN HEENT: normocephalic, atraumatic Respiratory/Chest: chest wall non-tender, lungs clear Cardiovascular: normal peripheral pulses, normal rate Abdomen: normal bowel sounds, no organomegaly Genitourinary: normal external genitalia 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 Lymphatic: no neck adenopathy Microbiology Date/Time Source Procedure Growth Status 02/05/18 13:06 Blood Blood Culture - Preliminary NO GROWTH AFTER 48 HOURS Resulted 02/05/18 12:50 Blood Blood Culture - Preliminary NO GROWTH AFTER 48 HOURS Resulted Laboratory Tests 02/07/18 16:19: Sodium Level 143, Potassium Level 3.6, Chloride Level 112H, Carbon Dioxide Level 11L, Anion Gap 21H, Blood Urea Nitrogen 79H, Creatinine 5.5H, Estimat Glomerular Filtration Rate 10.6, Glucose Level 75#, Calcium Level 8.6, C- Reactive Protein, Quantitative 0.8 02/08/18 05:05: Sodium Level 139, Potassium Level 4.0, Chloride Level 108H, Carbon Dioxide Level 10L, Anion Gap 21H, Blood Urea Nitrogen 74H, Creatinine 5.4H, Estimat Glomerular Filtration Rate 10.8, Glucose Level 425#H, Calcium Level 8.3L, White Blood Count 15.6H, Red Blood Count 2.97L, Hemoglobin 8.8L, Hematocrit 27.9L, Mean Corpuscular Volume 94, Mean Corpuscular Hemoglobin 29.6, Mean Corpuscular Hemoglobin Concent 31.6L, Red Cell Distribution Width 16.7H, Platelet Count 400 , Mean Platelet Volume 6.3L, Neutrophils (%) (Auto) 82.9H, Lymphocytes (%) (Auto ) 11.2L, Monocytes (%) (Auto) 4.4, Eosinophils (%) (Auto) 0.7, Basophils (%) ( Auto) 0.8, Hemoglobin A1c 6.6H, Uric Acid 6.1, Phosphorus Level 5.3H, Magnesium Level 1.9, Iron Level 71, Total Iron Binding Capacity 137L, Percent Iron Saturation 52H, Unsaturated Iron Binding 66L, Ferritin 721H, Total Bilirubin 0.5 , Gamma Glutamyl Transpeptidase 7, Aspartate Amino Transf (AST/SGOT) 5L, Alanine Aminotransferase (ALT/SGPT) 12, Alkaline Phosphatase 79, Total Creatine Kinase 31, Troponin I 0.000, Pro-B-Type Natriuretic Peptide 1650H, Total Protein 6.9, Albumin 3.0L, Globulin 3.9, Albumin/Globulin Ratio 0.8L, Triglycerides Level 154H, Cholesterol Level 134, LDL Cholesterol 90, HDL Cholesterol 31L, Cholesterol/HDL Ratio 4.3, Lipase 278, Vitamin B12 Level 491, Folate 19.4, Thyroid Stimulating Hormone (TSH) 2.004 02/08/18 11:50: Glucose Level 533#*H Current Medications Medications (Trade) Dose Ordered Sig/Dunia Route PRN Reason Start Time Stop Time Status Last Admin Dose Admin Acetaminophen (Tylenol) 650 mg Q4H PRN ORAL fever (temp>100.5F) 02/05/18 13:30 03/07/18 13:29 Albuterol/ Ipratropium (Albuterol/ Ipratropium) 3 ml Q4H PRN HHN Shortness of Breath 02/05/18 13:30 02/10/18 13:29 02/07/18 01:00 Bupropion HCl (Wellbutrin XL) 150 mg DAILY ORAL 02/08/18 09:00 03/10/18 08:59 02/08/18 08:28 Chlorhexidine Gluconate (Eloisa-Hex 2%) 1 applic DAILY@2000 TOPIC 02/05/18 20:00 03/07/18 19:59 02/06/18 20:21 Dextrose (Dextrose 50%) 25 ml STAT PRN IV Hypoglycemia 02/05/18 14:15 03/07/18 14:14 Dextrose (Dextrose 50%) 50 ml STAT PRN IV Hypoglycemia 02/05/18 13:30 03/07/18 13:29 02/07/18 18:28 Duloxetine HCl (Cymbalta) 30 mg DAILY ORAL 02/06/18 09:00 03/08/18 08:59 02/08/18 08:28 Epoetin Jose (Procrit (for non ESRD use)) 10,000 units WED-WED-WED SUBQ 02/09/18 21:00 03/11/18 20:59 Ertapenem 0.5 gm/ Sodium Chloride 55 ml @ 110 mls/hr Q24H IVPB 02/06/18 15:00 02/11/18 14:59 02/07/18 17:54 Hydralazine HCl (Apresoline) 25 mg Q4H PRN ORAL bp over 160 syst 02/08/18 09:30 03/10/18 09:29 Insulin Aspart (NovoLOG) BEFORE MEALS AND HS SUBQ 02/05/18 16:30 03/07/18 16:29 02/08/18 06:33 Insulin Aspart (NovoLOG) 5 units NOVOTIAC SUBQ 02/05/18 16:50 03/07/18 16:49 02/08/18 06:34 Insulin Detemir (Levemir) 12 units BID SUBQ 02/05/18 18:00 03/07/18 17:59 02/08/18 08:44 Metoprolol Succinate (Toprol XL) 50 mg Q12HR ORAL 02/05/18 21:00 03/07/18 20:59 02/07/18 20:59 Morphine Sulfate (Morphine Sulfate) 2 mg Q4H PRN IVP Moderate Pain (Pain Scale 4-6) 02/05/18 13:30 02/12/18 13:29 Nitroglycerin (Ntg) 0.4 mg Q5M PRN SL Prn Chest Pain 02/05/18 13:30 03/07/18 13:29 Ondansetron HCl (Zofran) 4 mg Q6H PRN ORAL Nausea & Vomiting 02/05/18 13:30 03/07/18 13:29 Polyethylene Glycol (Miralax) 17 gm DAILYPRN PRN ORAL Constipation 02/05/18 13:30 03/07/18 13:29 Sevelamer Carbonate (Renvela) 800 mg THREE TIMES A DAY ORAL 02/05/18 18:00 03/07/18 17:59 02/08/18 12:29 Sodium Chloride 1,000 ml @ 75 mls/hr [id number] IV 02/07/18 15:15 03/09/18 15:14 02/08/18 06:22 Sodium Citrate (Bicitra) 45 ml EVERY 6 HOURS ORAL 02/08/18 12:00 03/09/18 17:59 02/08/18 12:29 Temazepam (Restoril) 15 mg HSPRN PRN ORAL Insomnia 02/05/18 13:30 02/12/18 13:29 Esdras Delgado MD Feb 08, 2018 12:46
--- NOTE | 2018-02-08 14:35 | General Progress Note ---
Assessment/Plan Status: stable, progressing Assessment/Plan mdd anxiety taper down Cymbalta provided ro/st start Wellbutrin Subjective Date patient seen: Feb 08, 2018 Neurologic/Psychiatric: Reports: anxiety, depressed, emotional problems Allergies: Coded Allergies: CEFEPIME (Verified Allergy, Intermediate, Rash, 01/23/13) Objective Last 24 Hour Vital Signs Date Time Temp Pulse Resp B/P (MAP) Pulse Ox O2 Delivery O2 Flow Rate FiO2 02/08/18 12:00 98.0 55 18 112/46 (68) 100 98.0 02/08/18 09:00 Room Air 02/08/18 08:34 61 91/37 02/08/18 08:00 98.3 61 18 91/37 (55) 96 98.3 02/08/18 07:30 67 16 Room Air 21 02/08/18 05:22 175/79 02/08/18 04:00 98.2 74 20 175/79 (111) 96 98.2 02/08/18 00:00 98.1 76 20 144/76 (98) 97 98.1 02/07/18 21:00 Room Air 02/07/18 21:00 63 20 Room Air 21 02/07/18 20:59 63 143/69 02/07/18 20:00 97.3 63 20 143/69 (93) 94 97.3 02/07/18 16:00 98.9 75 19 143/69 (93) 98 98.9 Intake and Output 02/07/18 02/08/18 19:00 07:00 Intake Total 240 ml 200 ml Output Total 800 ml 300 ml Balance -560 ml -100 ml Intake Oral 240 ml Other 200 ml Output Urine Total 800 ml 300 ml Laboratory Tests 02/07/18 16:19: Sodium Level 143, Potassium Level 3.6, Chloride Level 112H, Carbon Dioxide Level 11L, Anion Gap 21H, Blood Urea Nitrogen 79H, Creatinine 5.5H, Estimat Glomerular Filtration Rate 10.6, Glucose Level 75#, Calcium Level 8.6, C- Reactive Protein, Quantitative 0.8 02/08/18 05:05: Sodium Level 139, Potassium Level 4.0, Chloride Level 108H, Carbon Dioxide Level 10L, Anion Gap 21H, Blood Urea Nitrogen 74H, Creatinine 5.4H, Estimat Glomerular Filtration Rate 10.8, Glucose Level 425#H, Calcium Level 8.3L, White Blood Count 15.6H, Red Blood Count 2.97L, Hemoglobin 8.8L, Hematocrit 27.9L, Mean Corpuscular Volume 94, Mean Corpuscular Hemoglobin 29.6, Mean Corpuscular Hemoglobin Concent 31.6L, Red Cell Distribution Width 16.7H, Platelet Count 400 , Mean Platelet Volume 6.3L, Neutrophils (%) (Auto) 82.9H, Lymphocytes (%) (Auto ) 11.2L, Monocytes (%) (Auto) 4.4, Eosinophils (%) (Auto) 0.7, Basophils (%) ( Auto) 0.8, Hemoglobin A1c 6.6H, Uric Acid 6.1, Phosphorus Level 5.3H, Magnesium Level 1.9, Iron Level 71, Total Iron Binding Capacity 137L, Percent Iron Saturation 52H, Unsaturated Iron Binding 66L, Ferritin 721H, Total Bilirubin 0.5 , Gamma Glutamyl Transpeptidase 7, Aspartate Amino Transf (AST/SGOT) 5L, Alanine Aminotransferase (ALT/SGPT) 12, Alkaline Phosphatase 79, Total Creatine Kinase 31, Troponin I 0.000, Pro-B-Type Natriuretic Peptide 1650H, Total Protein 6.9, Albumin 3.0L, Globulin 3.9, Albumin/Globulin Ratio 0.8L, Triglycerides Level 154H, Cholesterol Level 134, LDL Cholesterol 90, HDL Cholesterol 31L, Cholesterol/HDL Ratio 4.3, Lipase 278, Vitamin B12 Level 491, Folate 19.4, Thyroid Stimulating Hormone (TSH) 2.004 02/08/18 11:50: Glucose Level 533#*H Height (Feet): 5 Height (Inches): 8.00 Weight (Pounds): 162 General Appearance: no apparent distress, alert Neurologic: oriented x 3, responsive, depressed affect Fatmata Lu MD Feb 08, 2018 14:35
[2018-02-08] MEDS: Ertapenem 0.5gm in NS 55ml IVPB SCH (15:24)
[2018-02-08 16:00] VITALS: BP 106/65
--- NOTE | 2018-02-08 17:54 | Internal Med Progress Note ---
Subjective Date of Service: Feb 08, 2018 Physician Name Jose Glasgow Attending Physician Christopher Rosado MD Current Medications Medications (Trade) Dose Ordered Sig/Dunia Route PRN Reason Start Time Stop Time Status Last Admin Dose Admin Acetaminophen (Tylenol) 650 mg Q4H PRN ORAL fever (temp>100.5F) 02/05/18 13:30 03/07/18 13:29 Albuterol/ Ipratropium (Albuterol/ Ipratropium) 3 ml Q4H PRN HHN Shortness of Breath 02/05/18 13:30 02/10/18 13:29 02/07/18 01:00 Bupropion HCl (Wellbutrin XL) 150 mg DAILY ORAL 02/08/18 09:00 03/10/18 08:59 02/08/18 08:28 Chlorhexidine Gluconate (Eloisa-Hex 2%) 1 applic DAILY@2000 TOPIC 02/05/18 20:00 03/07/18 19:59 02/06/18 20:21 Dextrose (Dextrose 50%) 25 ml STAT PRN IV Hypoglycemia 02/05/18 14:15 03/07/18 14:14 Dextrose (Dextrose 50%) 50 ml STAT PRN IV Hypoglycemia 02/05/18 13:30 03/07/18 13:29 02/07/18 18:28 Duloxetine HCl (Cymbalta) 30 mg DAILY ORAL 02/06/18 09:00 03/08/18 08:59 02/08/18 08:28 Epoetin Jose (Procrit (for non ESRD use)) 10,000 units WED-WED-WED SUBQ 02/09/18 21:00 03/11/18 20:59 Ertapenem 0.5 gm/ Sodium Chloride 55 ml @ 110 mls/hr Q24H IVPB 02/06/18 15:00 02/11/18 14:59 02/08/18 15:24 Hydralazine HCl (Apresoline) 25 mg Q4H PRN ORAL bp over 160 syst 02/08/18 09:30 03/10/18 09:29 Insulin Aspart (NovoLOG) BEFORE MEALS AND HS SUBQ 02/05/18 16:30 03/07/18 16:29 02/08/18 17:00 Insulin Aspart (NovoLOG) 5 units NOVOTIAC SUBQ 02/05/18 16:50 03/07/18 16:49 02/08/18 17:00 Insulin Detemir (Levemir) 12 units BID SUBQ 02/05/18 18:00 03/07/18 17:59 02/08/18 08:44 Metoprolol Succinate (Toprol XL) 50 mg Q12HR ORAL 02/05/18 21:00 03/07/18 20:59 02/07/18 20:59 Morphine Sulfate (Morphine Sulfate) 2 mg Q4H PRN IVP Moderate Pain (Pain Scale 4-6) 02/05/18 13:30 02/12/18 13:29 Nitroglycerin (Ntg) 0.4 mg Q5M PRN SL Prn Chest Pain 02/05/18 13:30 03/07/18 13:29 Ondansetron HCl (Zofran) 4 mg Q6H PRN ORAL Nausea & Vomiting 02/05/18 13:30 03/07/18 13:29 Polyethylene Glycol (Miralax) 17 gm DAILYPRN PRN ORAL Constipation 02/05/18 13:30 03/07/18 13:29 Sevelamer Carbonate (Renvela) 800 mg THREE TIMES A DAY ORAL 02/05/18 18:00 03/07/18 17:59 02/08/18 12:29 Sodium Chloride 1,000 ml @ 75 mls/hr [id number] IV 02/07/18 15:15 03/09/18 15:14 02/08/18 06:22 Sodium Citrate (Bicitra) 45 ml EVERY 6 HOURS ORAL 02/08/18 12:00 03/09/18 17:59 02/08/18 12:29 Temazepam (Restoril) 15 mg HSPRN PRN ORAL Insomnia 02/05/18 13:30 02/12/18 13:29 Allergies: Coded Allergies: CEFEPIME (Verified Allergy, Intermediate, Rash, 01/23/13) ROS Limited/Unobtainable: No Constitutional: Reports: no symptoms HEENT: Reports: no symptoms Cardiovascular: Reports: no symptoms Respiratory: Reports: no symptoms Gastrointestinal/Abdominal: Reports: no symptoms Genitourinary: Reports: no symptoms Neurologic/Psychiatric: Reports: no symptoms Subjective 62 YO M admitted with hematuria. Now UTI. Refusing to eat and refusing insulin. Cover for Int Med-Dr Rosado. AccuStick labile Objective Last Vital Signs Date Time Temp Pulse Resp B/P (MAP) Pulse Ox O2 Delivery O2 Flow Rate FiO2 02/08/18 16:00 97.7 57 18 106/65 (79) 97 97.7 02/08/18 09:00 Room Air 02/08/18 07:30 21 Laboratory Tests Test 02/08/18 05:05 02/08/18 11:50 White Blood Count 15.6 K/UL (4.8-10.8) H Red Blood Count 2.97 M/UL (4.70-6.10) L Hemoglobin 8.8 G/DL (14.2-18.0) L Hematocrit 27.9 % (42.0-52.0) L Mean Corpuscular Volume 94 FL (80-99) Mean Corpuscular Hemoglobin 29.6 PG (27.0-31.0) Mean Corpuscular Hemoglobin Concent 31.6 G/DL (32.0-36.0) L Red Cell Distribution Width 16.7 % (11.6-14.8) H Platelet Count 400 K/UL (150-450) Mean Platelet Volume 6.3 FL (6.5-10.1) L Neutrophils (%) (Auto) 82.9 % (45.0-75.0) H Lymphocytes (%) (Auto) 11.2 % (20.0-45.0) L Monocytes (%) (Auto) 4.4 % (1.0-10.0) Eosinophils (%) (Auto) 0.7 % (0.0-3.0) Basophils (%) (Auto) 0.8 % (0.0-2.0) Sodium Level 139 MMOL/L (136-145) Potassium Level 4.0 MMOL/L (3.5-5.1) Chloride Level 108 MMOL/L (98-107) H Carbon Dioxide Level 10 MMOL/L (21-32) L Anion Gap 21 mmol/L (5-15) H Blood Urea Nitrogen 74 mg/dL (7-18) H Creatinine 5.4 MG/DL (0.55-1.30) H Estimat Glomerular Filtration Rate 10.8 mL/min (>60) Glucose Level 425 MG/DL (74-106) #H 533 MG/DL (74-106) #*H Hemoglobin A1c 6.6 % (4.3-6.0) H Uric Acid 6.1 MG/DL (2.6-7.2) Calcium Level 8.3 MG/DL (8.5-10.1) L Phosphorus Level 5.3 MG/DL (2.5-4.9) H Magnesium Level 1.9 MG/DL (1.8-2.4) Iron Level 71 ug/dL (50-175) Total Iron Binding Capacity 137 ug/dL (250-450) L Percent Iron Saturation 52 % (15-50) H Unsaturated Iron Binding 66 ug/dL (112-346) L Ferritin 721 NG/ML (8-388) H Total Bilirubin 0.5 MG/DL (0.2-1.0) Gamma Glutamyl Transpeptidase 7 U/L (5-85) Aspartate Amino Transf (AST/SGOT) 5 U/L (15-37) L Alanine Aminotransferase (ALT/SGPT) 12 U/L (12-78) Alkaline Phosphatase 79 U/L (46-116) Total Creatine Kinase 31 U/L (26-308) Troponin I 0.000 ng/mL (0.000-0.056) Pro-B-Type Natriuretic Peptide 1650 pg/mL (0-125) H Total Protein 6.9 G/DL (6.4-8.2) Albumin 3.0 G/DL (3.4-5.0) L Globulin 3.9 g/dL Albumin/Globulin Ratio 0.8 (1.0-2.7) L Triglycerides Level 154 MG/DL (30-150) H Cholesterol Level 134 MG/DL (< 200) LDL Cholesterol 90 mg/dL (<100) HDL Cholesterol 31 MG/DL (40-60) L Cholesterol/HDL Ratio 4.3 (3.3-4.4) Lipase 278 U/L (73-393) Vitamin B12 Level 491 PG/ML (193-986) Folate 19.4 NG/ML (8.6-58.9) Thyroid Stimulating Hormone (TSH) 2.004 uiU/mL (0.358-3.740) Intake and Output 02/07/18 02/08/18 19:00 07:00 Intake Total 240 ml 200 ml Output Total 800 ml 300 ml Balance -560 ml -100 ml Intake Oral 240 ml Other 200 ml Output Urine Total 800 ml 300 ml Objective General Appearance: WD/WN, no apparent distress, alert EENT: PERRL/EOMI, normal ENT inspection Neck: non-tender, normal alignment, supple, normal inspection Cardiovascular: normal peripheral pulses, normal rate, regular rhythm, no gallop/murmur, no JVD Respiratory/Chest: chest wall non-tender, lungs clear, normal breath sounds, no respiratory distress, no accessory muscle use Abdomen: normal bowel sounds, non tender, soft, no organomegaly, no mass Extremities: normal range of motion, non-tender 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 Await culture and sens result. Cont ertapenem per ID (3) DM (diabetes mellitus) Assessment & Plan: Refusing to eat and insulin therapy. Uncontrolled. Continue levemir and novolog sliding scale. See Endocrinology note. (4) CAD (coronary artery disease) (5) HTN (hypertension) Assessment & Plan: Continue norvasc and toprol (6) CKD (chronic kidney disease), stage III (7) DKA (diabetic ketoacidoses) Assessment & Plan: Mild. Does not meet ICU criteria per staff. Transfer to [facility]. See endocrinology note. (8) Depression, major Assessment & Plan: Await psychiatry consult. (9) Non compliance with medical treatment Status: not improved Jose Glasgow MD Feb 08, 2018 17:54
[2018-02-08 20:00] VITALS: BP 115/59
[2018-02-08] MEDS: Dyna-Hex 2% Top Sol 2oz TOPIC SCH (21:17)
[2018-02-09] VITALS: BP 107/55
[2018-02-09 04:00] VITALS: BP 121/60
[2018-02-09 06:07] LABS: HEMATOCRIT 21.7 % (42.0-52.0); HEMOGLOBIN 7.1 G/DL (14.2-18.0); MEAN CORPUSCULAR VOLUME 92 FL (80-99); PLATELET COUNT 330 K/UL (150-450); RED BLOOD COUNT 2.35 M/UL (4.70-6.10); RED CELL DISTRIBUTION WIDTH 16.7 % (11.6-14.8); WHITE BLOOD COUNT 9.7 K/UL (4.8-10.8)
[2018-02-09] MEDS: NovoLOG Insulin Flexpen SUBQ SCH ×7 (06:30→20:51)
[2018-02-09 06:37] LABS: ALANINE AMINOTRANSFERASE 10 U/L (12-78); ALBUMIN 2.6 G/DL (3.4-5.0); ALBUMIN/GLOBULIN RATIO 0.8 (1.0-2.7); ALKALINE PHOSPHATASE 63 U/L (46-116); ANION GAP 17 mmol/L (5-15); ASPARTATE AMINO TRANSFERASE < 5 U/L (15-37); BILIRUBIN,TOTAL 0.4 MG/DL (0.2-1.0); BLOOD UREA NITROGEN 75 mg/dL (7-18); CALCIUM 8.3 MG/DL (8.5-10.1); CARBON DIOXIDE 14 MMOL/L (21-32); CHLORIDE 113 MMOL/L (98-107); CREATININE 5.1 MG/DL (0.55-1.30); PHOSPHORUS 5.7 MG/DL (2.5-4.9); POTASSIUM 3.2 MMOL/L (3.5-5.1); SODIUM 144 MMOL/L (136-145)
[2018-02-09] MEDS: Sodium Citrate 30ml ORAL SCH ×3 (06:38→18:00)
--- NOTE | 2018-02-09 07:09 | General Progress Note ---
Assessment/Plan Problem List: (1) Vitamin D deficiency ICD Codes: E55.9 - Vitamin D deficiency, unspecified SNOMED: 90664618 (2) Retinopathy, diabetic, left eye ICD Codes: E11.319 - Type 2 diabetes mellitus with unspecified diabetic retinopathy without macular edema SNOMED: 4900413, 52358305 (3) Diabetes mellitus out of control ICD Codes: E11.65 - Type 2 diabetes mellitus with hyperglycemia SNOMED: 56158335, 059084752 (4) Renal insufficiency ICD Codes: N28.9 - Disorder of kidney and ureter, unspecified SNOMED: 849846123 (5) Psychiatric disturbance ICD Codes: F99 - Psychiatric disturbance SNOMED: 74286843 (6) HTN (hypertension) ICD Codes: I10 - HTN (hypertension) SNOMED: 07210283 (7) DKA (diabetic ketoacidoses) ICD Codes: E13.10 - Other specified diabetes mellitus with ketoacidosis without coma SNOMED: 211675887 Assessment/Plan hypoglycemia this morning has a very brittle diabetes - reduce Levemir to 9 units bid - DO NOT HOLD unless I am notified - reduce Novolog to 4 units ac tid - continue NISS ac / hs Subjective Allergies: Coded Allergies: CEFEPIME (Verified Allergy, Intermediate, Rash, 01/23/13) All Systems: reviewed and negative except above Subjective events noted Objective Last 24 Hour Vital Signs Date Time Temp Pulse Resp B/P (MAP) Pulse Ox O2 Delivery O2 Flow Rate FiO2 02/09/18 04:00 97.8 59 18 121/60 (80) 98 97.8 02/09/18 00:00 98.1 58 18 107/55 (72) 98 98.1 02/08/18 21:17 58 115/59 02/08/18 21:00 Room Air 02/08/18 20:30 59 15 Room Air 21 02/08/18 20:00 97.7 58 20 115/59 (77) 97 97.7 02/08/18 16:00 97.7 57 18 106/65 (79) 97 97.7 02/08/18 12:00 98.0 55 18 112/46 (68) 100 98.0 02/08/18 09:00 Room Air 02/08/18 08:34 61 91/37 02/08/18 08:00 98.3 61 18 91/37 (55) 96 98.3 02/08/18 07:30 67 16 Room Air 21 Intake and Output 02/08/18 02/09/18 19:00 07:00 Intake Total 530 ml 1145 ml Output Total 575 ml 550 ml Balance -45 ml 595 ml Intake Oral 120 ml 120 ml IV Total 410 ml 825 ml Other 200 ml Output Urine Total 575 ml 550 ml Laboratory Tests 02/08/18 11:50: Glucose Level 533#*H 02/09/18 05:50: Glucose Level 34#*L, White Blood Count 9.7, Red Blood Count 2.35L, Hemoglobin 7.1L, Hematocrit 21.7L, Mean Corpuscular Volume 92, Mean Corpuscular Hemoglobin 30.3, Mean Corpuscular Hemoglobin Concent 32.9, Red Cell Distribution Width 16.7H, Platelet Count 330, Mean Platelet Volume 6.4L, Neutrophils (%) (Auto) , Lymphocytes (%) (Auto) , Monocytes (%) (Auto) , Eosinophils (%) (Auto) , Basophils (%) (Auto) , Sodium Level 144, Potassium Level 3.2L, Chloride Level 113H, Carbon Dioxide Level 14L, Anion Gap 17H, Blood Urea Nitrogen 75H, Creatinine 5.1H, Estimat Glomerular Filtration Rate 11.5, Calcium Level 8.3L, Phosphorus Level 5.7H, Magnesium Level 1.9, Total Bilirubin 0.4, Aspartate Amino Transf (AST/SGOT) < 5L, Alanine Aminotransferase (ALT/SGPT) 10L, Alkaline Phosphatase 63, C-Reactive Protein, Quantitative 0.9, Pro-B-Type Natriuretic Peptide 1541H, Total Protein 5.9L, Albumin 2.6L, Globulin 3.3, Albumin/Globulin Ratio 0.8L Height (Feet): 5 Height (Inches): 8.00 Weight (Pounds): 161 General Appearance: no apparent distress Neck: normal alignment Respiratory/Chest: lungs clear Abdomen: normal bowel sounds Pelvis: normal external exam Edema: no edema noted Arm (L), no edema noted Arm (R), no edema noted Leg (L), no edema noted Leg (R), no edema noted Pedal (L), no edema noted Pedal (R), no edema noted Generalized Objective Current Medications Medications (Trade) Dose Ordered Sig/Dunia Route PRN Reason Start Time Stop Time Status Last Admin Dose Admin Acetaminophen (Tylenol) 650 mg Q4H PRN ORAL fever (temp>100.5F) 02/05/18 13:30 03/07/18 13:29 Albuterol/ Ipratropium (Albuterol/ Ipratropium) 3 ml Q4H PRN HHN Shortness of Breath 02/05/18 13:30 02/10/18 13:29 02/07/18 01:00 Bupropion HCl (Wellbutrin XL) 150 mg DAILY ORAL 02/08/18 09:00 03/10/18 08:59 02/08/18 08:28 Chlorhexidine Gluconate (Eloisa-Hex 2%) 1 applic DAILY@2000 TOPIC 02/05/18 20:00 03/07/18 19:59 02/08/18 21:17 Dextrose (Dextrose 50%) 25 ml STAT PRN IV Hypoglycemia 02/05/18 14:15 03/07/18 14:14 Dextrose (Dextrose 50%) 50 ml STAT PRN IV Hypoglycemia 02/05/18 13:30 03/07/18 13:29 02/09/18 06:51 Duloxetine HCl (Cymbalta) 30 mg DAILY ORAL 02/06/18 09:00 03/08/18 08:59 02/08/18 08:28 Epoetin Jose (Procrit (for non ESRD use)) 10,000 units WED-WED-WED SUBQ 02/09/18 21:00 03/11/18 20:59 Ertapenem 0.5 gm/ Sodium Chloride 55 ml @ 110 mls/hr Q24H IVPB 02/06/18 15:00 02/11/18 14:59 02/08/18 15:24 Hydralazine HCl (Apresoline) 25 mg Q4H PRN ORAL bp over 160 syst 02/08/18 09:30 03/10/18 09:29 Insulin Aspart (NovoLOG) BEFORE MEALS AND HS SUBQ 02/05/18 16:30 03/07/18 16:29 02/08/18 21:18 Insulin Aspart (NovoLOG) 5 units NOVOTIAC SUBQ 02/05/18 16:50 03/07/18 16:49 02/08/18 17:00 Insulin Detemir (Levemir) 12 units BID SUBQ 02/05/18 18:00 03/07/18 17:59 02/08/18 17:52 Metoprolol Succinate (Toprol XL) 50 mg Q12HR ORAL 02/05/18 21:00 03/07/18 20:59 02/08/18 21:17 Morphine Sulfate (Morphine Sulfate) 2 mg Q4H PRN IVP Moderate Pain (Pain Scale 4-6) 02/05/18 13:30 02/12/18 13:29 Nitroglycerin (Ntg) 0.4 mg Q5M PRN SL Prn Chest Pain 02/05/18 13:30 03/07/18 13:29 Ondansetron HCl (Zofran) 4 mg Q6H PRN ORAL Nausea & Vomiting 02/05/18 13:30 03/07/18 13:29 Polyethylene Glycol (Miralax) 17 gm DAILYPRN PRN ORAL Constipation 02/05/18 13:30 03/07/18 13:29 Sevelamer Carbonate (Renvela) 800 mg THREE TIMES A DAY ORAL 02/05/18 18:00 03/07/18 17:59 02/08/18 17:49 Sodium Chloride 1,000 ml @ 75 mls/hr [id number] IV 02/07/18 15:15 03/09/18 15:14 02/09/18 06:44 Sodium Citrate (Bicitra) 45 ml EVERY 6 HOURS ORAL 02/08/18 12:00 03/09/18 17:59 02/09/18 06:38 Temazepam (Restoril) 15 mg HSPRN PRN ORAL Insomnia 02/05/18 13:30 02/12/18 13:29 Item Value Date Time Glucose Level 34 MG/DL *L # 02/09/18 0550 Bedside Blood Glucose 48 mg/dl L 02/09/18 0651 Bedside Blood Glucose 118 mg/dl 02/08/18 2118 Bedside Blood Glucose 227 mg/dl H 02/08/18 1752 Bedside Blood Glucose 533 mg/dl H 02/08/18 1247 Bedside Blood Glucose 490 mg/dl H 02/08/18 0844 Bedside Blood Glucose 425 mg/dl H 02/08/18 0634 [place] Jacques MD Feb 09, 2018 07:09
--- NOTE | 2018-02-09 07:41 | Infectious Diseases Prog Note ---
Assessment/Plan Assessment/Plan Abx: Ertapenem x1 02/05 Linezolid x1 02/05 IV Vancomycin Assessment: Hematuria, recurrent R/o UTI - Cx growing Providencia sensitive to Ertapenem - u/a wbc 10-15, RBC TNCT, nit neg, leuk +3 - Blood Cultures 02/05/18 - NGTD Leukocytosis - Resolving - Monitor as patient hemodynamically stable - hx of recent probable ESBL P. mirabailis UTI s/p Rx 11/2017 -. hx of recent hematuria, penile extensive hemorrhage with surrounding cellulitis 09/2016, s/p Rx -s/p suprapubic cystostomy 09/28; re inserted 10/01 after patient pull it off -. History of coag-negative Staph bacteremia in July 2007, AMY was negative for endocarditis (due to bacteremia due to the PICC line infection). -. History of sepsis. -. History of CKD. -. History of renal and pancreas transplant about 10 years ago. -hx of prior HD -. History of enterococcal bacteremia in May 2017. -. History of suicidal attempt. -. History rof MO/CAD. -. Anemia. -. History of colon polyps. -. Hypertension. - Diabetes. Plan: -Continue empiric IV Ertapenem #4 for Providencia in urine - will likely treat for 10 days depending on his WBC counts -12/02 SP Ertapenem #5 -11/29 SP IV Vancomycin #4, -11/28 SP Aztreonam #3 -10/06 SP Doxycycline and Levaquin #4 -10/02 SP IV Vanco/Aztreonam #6 -09/10/17 SP Daptomycin #34 -Monitor leukocytosis -f/u Bcx - NGTD -Monitor CBC/CMP, temperatures -aspiration precautions Thank you for this consultation. Will continue to follow along with you. Subjective Allergies: Coded Allergies: CEFEPIME (Verified Allergy, Intermediate, Rash, 01/23/13) Subjective No acute events. No N/V/D and fever Objective Vital Signs Last 24 Hour Vital Signs Date Time Temp Pulse Resp B/P (MAP) Pulse Ox O2 Delivery O2 Flow Rate FiO2 02/09/18 04:00 97.8 59 18 121/60 (80) 98 97.8 02/09/18 00:00 98.1 58 18 107/55 (72) 98 98.1 02/08/18 21:17 58 115/59 02/08/18 21:00 Room Air 02/08/18 20:30 59 15 Room Air 21 02/08/18 20:00 97.7 58 20 115/59 (77) 97 97.7 02/08/18 16:00 97.7 57 18 106/65 (79) 97 97.7 02/08/18 12:00 98.0 55 18 112/46 (68) 100 98.0 02/08/18 09:00 Room Air 02/08/18 08:34 61 91/37 02/08/18 08:00 98.3 61 18 91/37 (55) 96 98.3 Height (Feet): 5 Height (Inches): 8.00 Weight (Pounds): 161 Objective General Appearance: no apparent distress, Head: NCAT, MMM, EOMI, ENT: normal ENT inspection Neck: normal inspection Respiratory: chest non-tender, lungs clear, normal breath sounds, speaking full sentences Cardiovascular regular rate, rhythm, no edema Gastrointestinal: other - suprapubic catheter site C/D/I Genitourinary: no CVA tenderness Musculoskeletal: normal inspection Skin: normal inspection Laboratory Tests Test 02/08/18 11:50 02/09/18 05:50 Glucose Level 533 MG/DL (74-106) #*H 34 MG/DL (74-106) #*L White Blood Count 9.7 K/UL (4.8-10.8) Red Blood Count 2.35 M/UL (4.70-6.10) L Hemoglobin 7.1 G/DL (14.2-18.0) L Hematocrit 21.7 % (42.0-52.0) L Mean Corpuscular Volume 92 FL (80-99) Mean Corpuscular Hemoglobin 30.3 PG (27.0-31.0) Mean Corpuscular Hemoglobin Concent 32.9 G/DL (32.0-36.0) Red Cell Distribution Width 16.7 % (11.6-14.8) H Platelet Count 330 K/UL (150-450) Mean Platelet Volume 6.4 FL (6.5-10.1) L Neutrophils (%) (Auto) % (45.0-75.0) Lymphocytes (%) (Auto) % (20.0-45.0) Monocytes (%) (Auto) % (1.0-10.0) Eosinophils (%) (Auto) % (0.0-3.0) Basophils (%) (Auto) % (0.0-2.0) Sodium Level 144 MMOL/L (136-145) Potassium Level 3.2 MMOL/L (3.5-5.1) L Chloride Level 113 MMOL/L (98-107) H Carbon Dioxide Level 14 MMOL/L (21-32) L Anion Gap 17 mmol/L (5-15) H Blood Urea Nitrogen 75 mg/dL (7-18) H Creatinine 5.1 MG/DL (0.55-1.30) H Estimat Glomerular Filtration Rate 11.5 mL/min (>60) Calcium Level 8.3 MG/DL (8.5-10.1) L Phosphorus Level 5.7 MG/DL (2.5-4.9) H Magnesium Level 1.9 MG/DL (1.8-2.4) Total Bilirubin 0.4 MG/DL (0.2-1.0) Aspartate Amino Transf (AST/SGOT) < 5 U/L (15-37) L Alanine Aminotransferase (ALT/SGPT) 10 U/L (12-78) L Alkaline Phosphatase 63 U/L (46-116) C-Reactive Protein, Quantitative 0.9 mg/dL (0.00-0.90) Pro-B-Type Natriuretic Peptide 1541 pg/mL (0-125) H Total Protein 5.9 G/DL (6.4-8.2) L Albumin 2.6 G/DL (3.4-5.0) L Globulin 3.3 g/dL Albumin/Globulin Ratio 0.8 (1.0-2.7) L Current Medications Medications (Trade) Dose Ordered Sig/Dunia Route PRN Reason Start Time Stop Time Status Last Admin Dose Admin Acetaminophen (Tylenol) 650 mg Q4H PRN ORAL fever (temp>100.5F) 02/05/18 13:30 03/07/18 13:29 Albuterol/ Ipratropium (Albuterol/ Ipratropium) 3 ml Q4H PRN HHN Shortness of Breath 02/05/18 13:30 02/10/18 13:29 02/07/18 01:00 Bupropion HCl (Wellbutrin XL) 150 mg DAILY ORAL 02/08/18 09:00 03/10/18 08:59 02/08/18 08:28 Chlorhexidine Gluconate (Eloisa-Hex 2%) 1 applic DAILY@2000 TOPIC 02/05/18 20:00 03/07/18 19:59 02/08/18 21:17 Dextrose (Dextrose 50%) 25 ml STAT PRN IV Hypoglycemia 02/05/18 14:15 03/07/18 14:14 Dextrose (Dextrose 50%) 50 ml STAT PRN IV Hypoglycemia 02/05/18 13:30 03/07/18 13:29 02/09/18 06:51 Duloxetine HCl (Cymbalta) 30 mg DAILY ORAL 02/06/18 09:00 03/08/18 08:59 02/08/18 08:28 Epoetin Jose (Procrit (for non ESRD use)) 10,000 units WED-WED-WED SUBQ 02/09/18 21:00 03/11/18 20:59 Ertapenem 0.5 gm/ Sodium Chloride 55 ml @ 110 mls/hr Q24H IVPB 02/06/18 15:00 02/11/18 14:59 02/08/18 15:24 Hydralazine HCl (Apresoline) 25 mg Q4H PRN ORAL bp over 160 syst 02/08/18 09:30 03/10/18 09:29 Insulin Aspart (NovoLOG) BEFORE MEALS AND HS SUBQ 02/05/18 16:30 03/07/18 16:29 02/08/18 21:18 Insulin Aspart (NovoLOG) 4 units NOVOTIAC SUBQ 02/09/18 11:50 03/07/18 16:49 Insulin Detemir (Levemir) 9 units BID SUBQ 02/09/18 09:00 03/07/18 17:59 Metoprolol Succinate (Toprol XL) 50 mg Q12HR ORAL 02/05/18 21:00 03/07/18 20:59 02/08/18 21:17 Morphine Sulfate (Morphine Sulfate) 2 mg Q4H PRN IVP Moderate Pain (Pain Scale 4-6) 02/05/18 13:30 02/12/18 13:29 Nitroglycerin (Ntg) 0.4 mg Q5M PRN SL Prn Chest Pain 02/05/18 13:30 03/07/18 13:29 Ondansetron HCl (Zofran) 4 mg Q6H PRN ORAL Nausea & Vomiting 02/05/18 13:30 03/07/18 13:29 Polyethylene Glycol (Miralax) 17 gm DAILYPRN PRN ORAL Constipation 02/05/18 13:30 03/07/18 13:29 Sevelamer Carbonate (Renvela) 800 mg THREE TIMES A DAY ORAL 02/05/18 18:00 03/07/18 17:59 02/08/18 17:49 Sodium Chloride 1,000 ml @ 75 mls/hr [id number] IV 02/07/18 15:15 03/09/18 15:14 02/09/18 06:44 Sodium Citrate (Bicitra) 45 ml EVERY 6 HOURS ORAL 02/08/18 12:00 03/09/18 17:59 02/09/18 06:38 Temazepam (Restoril) 15 mg HSPRN PRN ORAL Insomnia 02/05/18 13:30 02/12/18 13:29 William Caputo M.D. Feb 09, 2018 07:41
[2018-02-09 08:00] VITALS: BP 124/66
[2018-02-09] MEDS: BuPROPion XL 150mg tab ORAL SCH (08:35)
[2018-02-09] MEDS: Renvela 800mg Pkt ORAL SCH ×3 (08:35→18:09)
[2018-02-09] MEDS: DULoxetine 30mg cap ORAL SCH (08:35)
[2018-02-09] MEDS: Metoprolol Succinate XL 50mg tab ORAL SCH ×2 (08:40→20:51)
[2018-02-09] MEDS: Levemir Flexpen SUBQ SCH ×2 (09:14→18:13)
--- NOTE | 2018-02-09 10:27 | Urology Progress Note ---
Assessment/Plan Assessment/Plan 1. Hematuria, which is resolving. 2. Urinary retention. 3. BPH history. 4. Neurogenic bladder. 5. Pyuria with colonization. 6. Proteinuria. 7. Renal cyst. SP tube last changed 02/08 monitor clinically hand irrigate sp tube PRN abx as ordered cysto later Subjective Allergies: Coded Allergies: CEFEPIME (Verified Allergy, Intermediate, Rash, 01/23/13) Subjective all noted, sp tube draining Objective Last 24 Hour Vital Signs Date Time Temp Pulse Resp B/P (MAP) Pulse Ox O2 Delivery O2 Flow Rate FiO2 02/09/18 08:40 58 124/66 02/09/18 08:15 Room Air 02/09/18 08:00 97.2 58 18 124/66 (85) 95 97.2 02/09/18 04:00 97.8 59 18 121/60 (80) 98 97.8 02/09/18 00:00 98.1 58 18 107/55 (72) 98 98.1 02/08/18 21:17 58 115/59 02/08/18 21:00 Room Air 02/08/18 20:30 59 15 Room Air 21 02/08/18 20:00 97.7 58 20 115/59 (77) 97 97.7 02/08/18 16:00 97.7 57 18 106/65 (79) 97 97.7 02/08/18 12:00 98.0 55 18 112/46 (68) 100 98.0 Intake and Output 02/08/18 02/09/18 19:00 07:00 Intake Total 530 ml 1145 ml Output Total 575 ml 550 ml Balance -45 ml 595 ml Intake Oral 120 ml 120 ml IV Total 410 ml 825 ml Other 200 ml Output Urine Total 575 ml 550 ml Microbiology Date/Time Source Procedure Growth Status 02/05/18 13:06 Blood Blood Culture - Preliminary NO GROWTH AFTER 72 HOURS Resulted 02/05/18 12:41 Nasal Nares MRSA Culture - Final Staphylococcus Aureus - Mrsa Complete 02/05/18 12:00 Urine,Clean Catch Urine Culture - Final Providencia Stuartii Complete 02/05/18 12:41 Rectum VRE Culture - Final Enterococcus Faecalis - Vre Complete Current Medications Medications (Trade) Dose Ordered Sig/Dunia Route PRN Reason Start Time Stop Time Status Last Admin Dose Admin Acetaminophen (Tylenol) 650 mg Q4H PRN ORAL fever (temp>100.5F) 02/05/18 13:30 03/07/18 13:29 Albuterol/ Ipratropium (Albuterol/ Ipratropium) 3 ml Q4H PRN HHN Shortness of Breath 02/05/18 13:30 02/10/18 13:29 02/07/18 01:00 Bupropion HCl (Wellbutrin XL) 150 mg DAILY ORAL 02/08/18 09:00 03/10/18 08:59 02/09/18 08:35 Chlorhexidine Gluconate (Eloisa-Hex 2%) 1 applic DAILY@2000 TOPIC 02/05/18 20:00 03/07/18 19:59 02/08/18 21:17 Dextrose (Dextrose 50%) 25 ml STAT PRN IV Hypoglycemia 02/05/18 14:15 03/07/18 14:14 Dextrose (Dextrose 50%) 50 ml STAT PRN IV Hypoglycemia 02/05/18 13:30 03/07/18 13:29 02/09/18 06:51 Duloxetine HCl (Cymbalta) 30 mg DAILY ORAL 02/06/18 09:00 03/08/18 08:59 02/09/18 08:35 Epoetin Jose (Procrit (for non ESRD use)) 10,000 units WED-WED-WED SUBQ 02/09/18 21:00 03/11/18 20:59 Ertapenem 0.5 gm/ Sodium Chloride 55 ml @ 110 mls/hr Q24H IVPB 02/06/18 15:00 02/11/18 14:59 02/08/18 15:24 Hydralazine HCl (Apresoline) 25 mg Q4H PRN ORAL bp over 160 syst 02/08/18 09:30 03/10/18 09:29 Insulin Aspart (NovoLOG) BEFORE MEALS AND HS SUBQ 02/05/18 16:30 03/07/18 16:29 02/08/18 21:18 Insulin Aspart (NovoLOG) 4 units NOVOTIAC SUBQ 02/09/18 11:50 03/07/18 16:49 Insulin Detemir (Levemir) 9 units BID SUBQ 02/09/18 09:00 03/07/18 17:59 02/09/18 09:14 Metoprolol Succinate (Toprol XL) 50 mg Q12HR ORAL 02/05/18 21:00 03/07/18 20:59 02/08/18 21:17 Morphine Sulfate (Morphine Sulfate) 2 mg Q4H PRN IVP Moderate Pain (Pain Scale 4-6) 02/05/18 13:30 02/12/18 13:29 Nitroglycerin (Ntg) 0.4 mg Q5M PRN SL Prn Chest Pain 02/05/18 13:30 03/07/18 13:29 Ondansetron HCl (Zofran) 4 mg Q6H PRN ORAL Nausea & Vomiting 02/05/18 13:30 03/07/18 13:29 Polyethylene Glycol (Miralax) 17 gm DAILYPRN PRN ORAL Constipation 02/05/18 13:30 03/07/18 13:29 Sevelamer Carbonate (Renvela) 800 mg THREE TIMES A DAY ORAL 02/05/18 18:00 03/07/18 17:59 02/09/18 08:35 Sodium Chloride 1,000 ml @ 75 mls/hr [id number] IV 02/07/18 15:15 03/09/18 15:14 02/09/18 06:44 Sodium Citrate (Bicitra) 45 ml EVERY 6 HOURS ORAL 02/08/18 12:00 03/09/18 17:59 02/09/18 06:38 Temazepam (Restoril) 15 mg HSPRN PRN ORAL Insomnia 02/05/18 13:30 02/12/18 13:29 Laboratory Tests 02/08/18 11:50: Glucose Level 533#*H 02/09/18 05:50: Glucose Level 34#*L, White Blood Count 9.7, Red Blood Count 2.35L, Hemoglobin 7.1L, Hematocrit 21.7L, Mean Corpuscular Volume 92, Mean Corpuscular Hemoglobin 30.3, Mean Corpuscular Hemoglobin Concent 32.9, Red Cell Distribution Width 16.7H, Platelet Count 330, Mean Platelet Volume 6.4L, Neutrophils (%) (Auto) , Lymphocytes (%) (Auto) , Monocytes (%) (Auto) , Eosinophils (%) (Auto) , Basophils (%) (Auto) , Sodium Level 144, Potassium Level 3.2L, Chloride Level 113H, Carbon Dioxide Level 14L, Anion Gap 17H, Blood Urea Nitrogen 75H, Creatinine 5.1H, Estimat Glomerular Filtration Rate 11.5, Calcium Level 8.3L, Phosphorus Level 5.7H, Magnesium Level 1.9, Total Bilirubin 0.4, Aspartate Amino Transf (AST/SGOT) < 5L, Alanine Aminotransferase (ALT/SGPT) 10L, Alkaline Phosphatase 63, C-Reactive Protein, Quantitative 0.9, Pro-B-Type Natriuretic Peptide 1541H, Total Protein 5.9L, Albumin 2.6L, Globulin 3.3, Albumin/Globulin Ratio 0.8L Height (Feet): 5 Height (Inches): 8.00 Weight (Pounds): 161 Objective exam stable, sp tube in place, urine carly A[place] JOE Feb 09, 2018 10:27
[2018-02-09 12:07] VITALS: BP 136/47
--- NOTE | 2018-02-09 12:26 | Internal Med Progress Note ---
Subjective Date of Service: Feb 09, 2018 Physician Name Jose Glasgow Attending Physician Christopher Rosado MD Current Medications Medications (Trade) Dose Ordered Sig/Dunia Route PRN Reason Start Time Stop Time Status Last Admin Dose Admin Acetaminophen (Tylenol) 650 mg Q4H PRN ORAL fever (temp>100.5F) 02/05/18 13:30 03/07/18 13:29 Albuterol/ Ipratropium (Albuterol/ Ipratropium) 3 ml Q4H PRN HHN Shortness of Breath 02/05/18 13:30 02/10/18 13:29 02/07/18 01:00 Bupropion HCl (Wellbutrin XL) 150 mg DAILY ORAL 02/08/18 09:00 03/10/18 08:59 02/09/18 08:35 Chlorhexidine Gluconate (Eloisa-Hex 2%) 1 applic DAILY@2000 TOPIC 02/05/18 20:00 03/07/18 19:59 02/08/18 21:17 Dextrose (Dextrose 50%) 25 ml STAT PRN IV Hypoglycemia 02/05/18 14:15 03/07/18 14:14 Dextrose (Dextrose 50%) 50 ml STAT PRN IV Hypoglycemia 02/05/18 13:30 03/07/18 13:29 02/09/18 06:51 Duloxetine HCl (Cymbalta) 30 mg DAILY ORAL 02/06/18 09:00 03/08/18 08:59 02/09/18 08:35 Epoetin Jose (Procrit (for non ESRD use)) 10,000 units WED-WED-WED SUBQ 02/09/18 21:00 03/11/18 20:59 Ertapenem 0.5 gm/ Sodium Chloride 55 ml @ 110 mls/hr Q24H IVPB 02/06/18 15:00 02/11/18 14:59 02/08/18 15:24 Hydralazine HCl (Apresoline) 25 mg Q4H PRN ORAL bp over 160 syst 02/08/18 09:30 03/10/18 09:29 Insulin Aspart (NovoLOG) BEFORE MEALS AND HS SUBQ 02/05/18 16:30 03/07/18 16:29 02/08/18 21:18 Insulin Aspart (NovoLOG) 4 units NOVOTIAC SUBQ 02/09/18 11:50 03/07/18 16:49 Insulin Detemir (Levemir) 9 units BID SUBQ 02/09/18 09:00 03/07/18 17:59 02/09/18 09:14 Metoprolol Succinate (Toprol XL) 50 mg Q12HR ORAL 02/05/18 21:00 03/07/18 20:59 02/08/18 21:17 Morphine Sulfate (Morphine Sulfate) 2 mg Q4H PRN IVP Moderate Pain (Pain Scale 4-6) 02/05/18 13:30 02/12/18 13:29 Nitroglycerin (Ntg) 0.4 mg Q5M PRN SL Prn Chest Pain 02/05/18 13:30 03/07/18 13:29 Ondansetron HCl (Zofran) 4 mg Q6H PRN ORAL Nausea & Vomiting 02/05/18 13:30 03/07/18 13:29 Polyethylene Glycol (Miralax) 17 gm DAILYPRN PRN ORAL Constipation 02/05/18 13:30 03/07/18 13:29 Sevelamer Carbonate (Renvela) 800 mg THREE TIMES A DAY ORAL 02/05/18 18:00 03/07/18 17:59 02/09/18 08:35 Sodium Chloride 1,000 ml @ 75 mls/hr [id number] IV 02/07/18 15:15 03/09/18 15:14 02/09/18 06:44 Sodium Citrate (Bicitra) 45 ml EVERY 6 HOURS ORAL 02/08/18 12:00 03/09/18 17:59 02/09/18 06:38 Temazepam (Restoril) 15 mg HSPRN PRN ORAL Insomnia 02/05/18 13:30 02/12/18 13:29 Allergies: Coded Allergies: CEFEPIME (Verified Allergy, Intermediate, Rash, 01/23/13) ROS Limited/Unobtainable: No Constitutional: Reports: no symptoms HEENT: Reports: no symptoms Cardiovascular: Reports: no symptoms Respiratory: Reports: no symptoms Gastrointestinal/Abdominal: Reports: no symptoms Genitourinary: Reports: hematuria Neurologic/Psychiatric: Reports: no symptoms Subjective 62 YO M admitted with hematuria. Now UTI. Refusing to eat and refusing insulin. Cover for Int Med-Dr Rosado. AccuStick labile. S/P supraqubic cath replacement Objective Last Vital Signs Date Time Temp Pulse Resp B/P (MAP) Pulse Ox O2 Delivery O2 Flow Rate FiO2 02/09/18 12:07 97.5 63 18 136/47 (76) 97 97.5 02/09/18 08:15 Room Air 02/08/18 20:30 21 Laboratory Tests Test 02/09/18 05:50 White Blood Count 9.7 K/UL (4.8-10.8) Red Blood Count 2.35 M/UL (4.70-6.10) L Hemoglobin 7.1 G/DL (14.2-18.0) L Hematocrit 21.7 % (42.0-52.0) L Mean Corpuscular Volume 92 FL (80-99) Mean Corpuscular Hemoglobin 30.3 PG (27.0-31.0) Mean Corpuscular Hemoglobin Concent 32.9 G/DL (32.0-36.0) Red Cell Distribution Width 16.7 % (11.6-14.8) H Platelet Count 330 K/UL (150-450) Mean Platelet Volume 6.4 FL (6.5-10.1) L Neutrophils (%) (Auto) % (45.0-75.0) Lymphocytes (%) (Auto) % (20.0-45.0) Monocytes (%) (Auto) % (1.0-10.0) Eosinophils (%) (Auto) % (0.0-3.0) Basophils (%) (Auto) % (0.0-2.0) Sodium Level 144 MMOL/L (136-145) Potassium Level 3.2 MMOL/L (3.5-5.1) L Chloride Level 113 MMOL/L (98-107) H Carbon Dioxide Level 14 MMOL/L (21-32) L Anion Gap 17 mmol/L (5-15) H Blood Urea Nitrogen 75 mg/dL (7-18) H Creatinine 5.1 MG/DL (0.55-1.30) H Estimat Glomerular Filtration Rate 11.5 mL/min (>60) Glucose Level 34 MG/DL (74-106) #*L Calcium Level 8.3 MG/DL (8.5-10.1) L Phosphorus Level 5.7 MG/DL (2.5-4.9) H Magnesium Level 1.9 MG/DL (1.8-2.4) Total Bilirubin 0.4 MG/DL (0.2-1.0) Aspartate Amino Transf (AST/SGOT) < 5 U/L (15-37) L Alanine Aminotransferase (ALT/SGPT) 10 U/L (12-78) L Alkaline Phosphatase 63 U/L (46-116) C-Reactive Protein, Quantitative 0.9 mg/dL (0.00-0.90) Pro-B-Type Natriuretic Peptide 1541 pg/mL (0-125) H Total Protein 5.9 G/DL (6.4-8.2) L Albumin 2.6 G/DL (3.4-5.0) L Globulin 3.3 g/dL Albumin/Globulin Ratio 0.8 (1.0-2.7) L Intake and Output 02/08/18 02/09/18 19:00 07:00 Intake Total 530 ml 1145 ml Output Total 575 ml 550 ml Balance -45 ml 595 ml Intake Oral 120 ml 120 ml IV Total 410 ml 825 ml Other 200 ml Output Urine Total 575 ml 550 ml Objective General Appearance: WD/WN, no apparent distress, alert EENT: PERRL/EOMI, normal ENT inspection Neck: non-tender, normal alignment, supple, normal inspection Cardiovascular: normal peripheral pulses, normal rate, regular rhythm, no gallop/murmur, no JVD Respiratory/Chest: chest wall non-tender, lungs clear, normal breath sounds, no respiratory distress, no accessory muscle use Abdomen: normal bowel sounds, non tender, soft, no organomegaly, no mass Extremities: normal range of motion, non-tender Neurologic: floor refinisher II-XII grossly normal, no motor/sensory deficits Skin: normal pigmentation, warm/dry Assessment/Plan Problem List: (1) Hematuria (2) UTI (lower urinary tract infection) Assessment & Plan: Gram neg consuelo. Await culture and sens result. Cont ertapenem per ID S/P suprapubic cath replacement by urology -see note. (3) DM (diabetes mellitus) Assessment & Plan: Refusing to eat and insulin therapy. Uncontrolled. Continue levemir and novolog sliding scale. See Endocrinology note. (4) CAD (coronary artery disease) (5) HTN (hypertension) Assessment & Plan: Continue norvasc and toprol (6) CKD (chronic kidney disease), stage III (7) DKA (diabetic ketoacidoses) Assessment & Plan: Mild. Does not meet ICU criteria per staff. Transfer to [facility]. See endocrinology note. (8) Depression, major Assessment & Plan: Await psychiatry consult. (9) Non compliance with medical treatment Status: progressing Jose Glasgow MD Feb 09, 2018 12:26
--- NOTE | 2018-02-09 13:06 | Pulmonology Progress Note ---
Assessment/Plan Problems: (1) Hematuria (2) Pulmonary HTN (3) Encephalopathy acute (4) Acute on chronic renal failure (5) Acute hyperglycemia (6) Depression, major (7) Anemia in chronic kidney disease (8) Suprapubic catheter Assessment/Plan BS was very low earlier, now on Levemir 9 BID transfuse one unit of prbc iv fluids check electrolytes f/u by Nephrology sliding scale psych to follow check h/h prbc prn Subjective ROS Limited/Unobtainable: No Constitutional: Reports: no symptoms HEENT: Repors: no symptoms Respiratory: Reports: no symptoms Allergies: Coded Allergies: CEFEPIME (Verified Allergy, Intermediate, Rash, 01/23/13) Objective Last 24 Hour Vital Signs Date Time Temp Pulse Resp B/P (MAP) Pulse Ox O2 Delivery O2 Flow Rate FiO2 02/09/18 12:07 97.5 63 18 136/47 (76) 97 97.5 02/09/18 08:40 58 124/66 02/09/18 08:15 Room Air 02/09/18 08:00 97.2 58 18 124/66 (85) 95 97.2 02/09/18 04:00 97.8 59 18 121/60 (80) 98 97.8 02/09/18 00:00 98.1 58 18 107/55 (72) 98 98.1 02/08/18 21:17 58 115/59 02/08/18 21:00 Room Air 02/08/18 20:30 59 15 Room Air 21 02/08/18 20:00 97.7 58 20 115/59 (77) 97 97.7 02/08/18 16:00 97.7 57 18 106/65 (79) 97 97.7 Intake and Output 02/08/18 02/09/18 19:00 07:00 Intake Total 530 ml 1145 ml Output Total 575 ml 550 ml Balance -45 ml 595 ml Intake Oral 120 ml 120 ml IV Total 410 ml 825 ml Other 200 ml Output Urine Total 575 ml 550 ml General Appearance: WD/WN HEENT: normocephalic, atraumatic Respiratory/Chest: chest wall non-tender, lungs clear Cardiovascular: normal peripheral pulses, normal rate Abdomen: normal bowel sounds, soft, non tender Genitourinary: normal external genitalia Extremities: no clubbing Skin: no ulcers Neurologic/Psychiatric: abnormal gait Lymphatic: no neck adenopathy Laboratory Tests 02/09/18 05:50: White Blood Count 9.7, Red Blood Count 2.35L, Hemoglobin 7.1L, Hematocrit 21.7L , Mean Corpuscular Volume 92, Mean Corpuscular Hemoglobin 30.3, Mean Corpuscular Hemoglobin Concent 32.9, Red Cell Distribution Width 16.7H, Platelet Count 330, Mean Platelet Volume 6.4L, Neutrophils (%) (Auto) , Lymphocytes (%) (Auto) , Monocytes (%) (Auto) , Eosinophils (%) (Auto) , Basophils (%) (Auto) , Sodium Level 144, Potassium Level 3.2L, Chloride Level 113H, Carbon Dioxide Level 14L, Anion Gap 17H, Blood Urea Nitrogen 75H, Creatinine 5.1H, Estimat Glomerular Filtration Rate 11.5, Glucose Level 34#*L, Calcium Level 8.3L, Phosphorus Level 5.7H, Magnesium Level 1.9, Total Bilirubin 0.4, Aspartate Amino Transf (AST/SGOT) < 5L, Alanine Aminotransferase (ALT/SGPT ) 10L, Alkaline Phosphatase 63, C-Reactive Protein, Quantitative 0.9, Pro-B- Type Natriuretic Peptide 1541H, Total Protein 5.9L, Albumin 2.6L, Globulin 3.3, Albumin/Globulin Ratio 0.8L Current Medications Medications (Trade) Dose Ordered Sig/Dunia Route PRN Reason Start Time Stop Time Status Last Admin Dose Admin Acetaminophen (Tylenol) 650 mg Q4H PRN ORAL fever (temp>100.5F) 02/05/18 13:30 03/07/18 13:29 Albuterol/ Ipratropium (Albuterol/ Ipratropium) 3 ml Q4H PRN HHN Shortness of Breath 02/05/18 13:30 02/10/18 13:29 02/07/18 01:00 Bupropion HCl (Wellbutrin XL) 150 mg DAILY ORAL 02/08/18 09:00 03/10/18 08:59 02/09/18 08:35 Chlorhexidine Gluconate (Eloisa-Hex 2%) 1 applic DAILY@2000 TOPIC 02/05/18 20:00 03/07/18 19:59 02/08/18 21:17 Dextrose (Dextrose 50%) 25 ml STAT PRN IV Hypoglycemia 02/05/18 14:15 03/07/18 14:14 Dextrose (Dextrose 50%) 50 ml STAT PRN IV Hypoglycemia 02/05/18 13:30 03/07/18 13:29 02/09/18 06:51 Duloxetine HCl (Cymbalta) 30 mg DAILY ORAL 02/06/18 09:00 03/08/18 08:59 02/09/18 08:35 Epoetin Jose (Procrit (for non ESRD use)) 10,000 units WED-WED-WED SUBQ 02/09/18 21:00 03/11/18 20:59 Ertapenem 0.5 gm/ Sodium Chloride 55 ml @ 110 mls/hr Q24H IVPB 02/06/18 15:00 02/11/18 14:59 02/08/18 15:24 Hydralazine HCl (Apresoline) 25 mg Q4H PRN ORAL bp over 160 syst 02/08/18 09:30 03/10/18 09:29 Insulin Aspart (NovoLOG) BEFORE MEALS AND HS SUBQ 02/05/18 16:30 03/07/18 16:29 02/09/18 12:38 Insulin Aspart (NovoLOG) 4 units NOVOTIAC SUBQ 02/09/18 11:50 03/07/18 16:49 02/09/18 12:39 Insulin Detemir (Levemir) 9 units BID SUBQ 02/09/18 09:00 03/07/18 17:59 02/09/18 09:14 Metoprolol Succinate (Toprol XL) 50 mg Q12HR ORAL 02/05/18 21:00 03/07/18 20:59 02/08/18 21:17 Morphine Sulfate (Morphine Sulfate) 2 mg Q4H PRN IVP Moderate Pain (Pain Scale 4-6) 02/05/18 13:30 02/12/18 13:29 Nitroglycerin (Ntg) 0.4 mg Q5M PRN SL Prn Chest Pain 02/05/18 13:30 03/07/18 13:29 Ondansetron HCl (Zofran) 4 mg Q6H PRN ORAL Nausea & Vomiting 02/05/18 13:30 03/07/18 13:29 Polyethylene Glycol (Miralax) 17 gm DAILYPRN PRN ORAL Constipation 02/05/18 13:30 03/07/18 13:29 Sevelamer Carbonate (Renvela) 800 mg THREE TIMES A DAY ORAL 02/05/18 18:00 03/07/18 17:59 02/09/18 08:35 Sodium Chloride 1,000 ml @ 75 mls/hr [id number] IV 02/07/18 15:15 03/09/18 15:14 02/09/18 06:44 Sodium Citrate (Bicitra) 45 ml EVERY 6 HOURS ORAL 02/08/18 12:00 03/09/18 17:59 02/09/18 06:38 Temazepam (Restoril) 15 mg HSPRN PRN ORAL Insomnia 02/05/18 13:30 02/12/18 13:29 Esdras Delgado MD Feb 09, 2018 13:06
[2018-02-09] MEDS ORDERED: Lidocaine 1% Plain 30 ml INJ PRN (13:15)
[2018-02-09] MEDS ORDERED: Heparin 2000 units/Ns 1000ml INJ PRN (13:15)
--- NOTE | 2018-02-09 13:43 | Consultation ---
Consult Note Consult Note Hematology Oncology Consult Note DOS 02/09/18 RFC: evaluation of anemia, hematuria CHIEF COMPLAINT: The patient is a 62-year-old white male presents with chief complaint of abnormal labs. HISTORY OF PRESENT ILLNESS: The patient is a resident of [facility]. According to staff at [facility], the patient's blood sugars have been elevated. The patient has also not been eating well for the last 3 days. The patient presented to [place] emergency room. Random blood sugar was found to be greater than 400. The patient is admitted with hyperglycemia and uncontrolled diabetes type 2. Blood sugars now have dived to 54, also remains anemic and hematology service consulted, also continues to have hematuria. PAST MEDICAL HISTORY: Significant for 1. Type 2 diabetes. 2. Chronic renal failure, stage 4. 3. Anemia. 4. Renal osteodystrophy. 5. Secondary hyperparathyroidism. 6. Gastritis. 7. Coronary artery disease, status post stent placement in 2007. 8. Non-ST elevated myocardial infarction x2. 9. Hypertension. 10. Benign prostatic hypertrophy. 11. Left eye blindness. 12. Hypercholesterolemia. 13. Major depression status post suicide attempt in 2012 by insulin overdose. PAST SURGICAL HISTORY: Significant for 1. Suprapubic catheter placement in September 2017. 2. Renal pancreatic transplant in 1987, status post rejection. 3. Bilateral nephrectomy in 2014. 4. Left eye prosthesis. CURRENT MEDICATIONS: 1. Levemir 25 units subcutaneously twice daily. 2. NovoLog insulin sliding scale. 3. Atorvastatin 10 mg p.o. at bedtime. 4. Azathioprine 50 mg p.o. daily. 5. Erythropoietin 10,000 units subcutaneously three times weekly. 6. Nexium 30 mg p.o. daily. 7. Metoprolol 50 mg p.o. twice daily. 8. Renvela 800 mg p.o. three times daily. 9. Amlodipine 5 mg p.o. daily. 10. Cymbalta 30 mg p.o. daily. ALLERGIES: To cefepime. SOCIAL HISTORY: The patient lives at [facility]. The patient denies tobacco or alcohol use. ROS: Constitutional: No fever, no chills, no night sweats, no fatigue Skin: No rashes, lumps, itchiness, dryness HEENT: No ALY, ear ache, visual changes, double vision, nosebleeds, sore throat, lumps, swollen glands Breasts: No lumps, pain, discharge Pulmonary: No cough, sputum, shortness of breath, coughing up blood, hemoptysis Cardiovascular: No chest pain, tightness, palpitations, syncope, claudication, orthopnea, PND GI: No nausea, vomiting, diarrhea, melena, hematochezia, change in appetite, abdominal pain : No dysuria, frequency, urgency, urinary incontinence, foamy urine Musculoskeletal: No joint swelling or muscle pain, trauma, back pain Neurologic: No dizziness, fainting, seizures, changes in smell or taste Psychiatric: No nervousness, stress, or depression, anxiety, hallucinations Endocrine: No weight change, heat or cold intolerance, tremor, insomnia PE: General Appearance: A+O x3, NAD HEENT: normocephalic, atraumatic Neck: non-tender, normal alignment Respiratory/Chest: chest wall non-tender, lungs clear Cardiovascular/Chest: normal peripheral pulses, normal rate Abdomen: normal bowel sounds, non tender Extremities: normal range of motion Laboratory Tests Test 02/09/18 05:50 White Blood Count 9.7 K/UL (4.8-10.8) Red Blood Count 2.35 M/UL (4.70-6.10) L Hemoglobin 7.1 G/DL (14.2-18.0) L Hematocrit 21.7 % (42.0-52.0) L Mean Corpuscular Volume 92 FL (80-99) Mean Corpuscular Hemoglobin 30.3 PG (27.0-31.0) Mean Corpuscular Hemoglobin Concent 32.9 G/DL (32.0-36.0) Red Cell Distribution Width 16.7 % (11.6-14.8) H Platelet Count 330 K/UL (150-450) Mean Platelet Volume 6.4 FL (6.5-10.1) L Neutrophils (%) (Auto) % (45.0-75.0) Lymphocytes (%) (Auto) % (20.0-45.0) Monocytes (%) (Auto) % (1.0-10.0) Eosinophils (%) (Auto) % (0.0-3.0) Basophils (%) (Auto) % (0.0-2.0) Sodium Level 144 MMOL/L (136-145) Potassium Level 3.2 MMOL/L (3.5-5.1) L Chloride Level 113 MMOL/L (98-107) H Carbon Dioxide Level 14 MMOL/L (21-32) L Anion Gap 17 mmol/L (5-15) H Blood Urea Nitrogen 75 mg/dL (7-18) H Creatinine 5.1 MG/DL (0.55-1.30) H Estimat Glomerular Filtration Rate 11.5 mL/min (>60) Glucose Level 34 MG/DL (74-106) #*L Calcium Level 8.3 MG/DL (8.5-10.1) L Phosphorus Level 5.7 MG/DL (2.5-4.9) H Magnesium Level 1.9 MG/DL (1.8-2.4) Total Bilirubin 0.4 MG/DL (0.2-1.0) Aspartate Amino Transf (AST/SGOT) < 5 U/L (15-37) L Alanine Aminotransferase (ALT/SGPT) 10 U/L (12-78) L Alkaline Phosphatase 63 U/L (46-116) C-Reactive Protein, Quantitative 0.9 mg/dL (0.00-0.90) Pro-B-Type Natriuretic Peptide 1541 pg/mL (0-125) H Total Protein 5.9 G/DL (6.4-8.2) L Albumin 2.6 G/DL (3.4-5.0) L Globulin 3.3 g/dL Albumin/Globulin Ratio 0.8 (1.0-2.7) L Imaging: reviewed ASSESSMENT/RECS: #. Anemia due to hematuria - has dropped further, in the 7-8 range --> transfuse 1 unit on 02/09, monito prn basis and monitor for hematuria --> anemia w/u has been reviewed --> no iron deficiency noted, or hemolysis --> hgb goal is >7 #. Anemia due to ckd --> continue procrit per nephrology --> sufficient iron stores are noted #. Hyperglycemia. #. Diabetes type 2, uncontrolled. #. Renal failure, stage 4. #. Hypertension. #. Renal osteodystrophy. #. Secondary hyperparathyroidism. #. Gastritis. #. Coronary artery disease. Humberto Damon MD Feb 09, 2018 13:43
[2018-02-09] MEDS: Ertapenem 0.5gm in NS 55ml IVPB SCH (14:22)
--- NOTE | 2018-02-09 14:30 | General Progress Note ---
Assessment/Plan Status: stable, unchanged Assessment/Plan mdd anxiety taper down Cymbalta provided ro/st start Wellbutrin Subjective Neurologic/Psychiatric: Reports: anxiety, depressed, emotional problems Allergies: Coded Allergies: CEFEPIME (Verified Allergy, Intermediate, Rash, 01/23/13) Objective Last 24 Hour Vital Signs Date Time Temp Pulse Resp B/P (MAP) Pulse Ox O2 Delivery O2 Flow Rate FiO2 02/09/18 12:07 97.5 63 18 136/47 (76) 97 97.5 02/09/18 08:40 58 124/66 02/09/18 08:15 Room Air 02/09/18 08:00 97.2 58 18 124/66 (85) 95 97.2 02/09/18 04:00 97.8 59 18 121/60 (80) 98 97.8 02/09/18 00:00 98.1 58 18 107/55 (72) 98 98.1 02/08/18 21:17 58 115/59 02/08/18 21:00 Room Air 02/08/18 20:30 59 15 Room Air 21 02/08/18 20:00 97.7 58 20 115/59 (77) 97 97.7 02/08/18 16:00 97.7 57 18 106/65 (79) 97 97.7 Intake and Output 02/08/18 02/09/18 19:00 07:00 Intake Total 530 ml 1145 ml Output Total 575 ml 550 ml Balance -45 ml 595 ml Intake Oral 120 ml 120 ml IV Total 410 ml 825 ml Other 200 ml Output Urine Total 575 ml 550 ml Laboratory Tests 02/09/18 05:50: White Blood Count 9.7, Red Blood Count 2.35L, Hemoglobin 7.1L, Hematocrit 21.7L , Mean Corpuscular Volume 92, Mean Corpuscular Hemoglobin 30.3, Mean Corpuscular Hemoglobin Concent 32.9, Red Cell Distribution Width 16.7H, Platelet Count 330, Mean Platelet Volume 6.4L, Neutrophils (%) (Auto) , Lymphocytes (%) (Auto) , Monocytes (%) (Auto) , Eosinophils (%) (Auto) , Basophils (%) (Auto) , Sodium Level 144, Potassium Level 3.2L, Chloride Level 113H, Carbon Dioxide Level 14L, Anion Gap 17H, Blood Urea Nitrogen 75H, Creatinine 5.1H, Estimat Glomerular Filtration Rate 11.5, Glucose Level 34#*L, Calcium Level 8.3L, Phosphorus Level 5.7H, Magnesium Level 1.9, Total Bilirubin 0.4, Aspartate Amino Transf (AST/SGOT) < 5L, Alanine Aminotransferase (ALT/SGPT ) 10L, Alkaline Phosphatase 63, C-Reactive Protein, Quantitative 0.9, Pro-B- Type Natriuretic Peptide 1541H, Total Protein 5.9L, Albumin 2.6L, Globulin 3.3, Albumin/Globulin Ratio 0.8L Height (Feet): 5 Height (Inches): 8.00 Weight (Pounds): 161 General Appearance: no apparent distress, alert Neurologic: oriented x 3, depressed affect Fatmata Lu MD Feb 09, 2018 14:30
[2018-02-09 16:00] VITALS: BP 133/77
[2018-02-09] MEDS ORDERED: Dyna-Hex 2% Top Sol 2oz TOPIC SCH (20:00)
[2018-02-09 20:03] VITALS: BP 104/62
[2018-02-09] MEDS ORDERED: Epogen (for non ESRD use) SUBQ SCH (21:00)
--- NOTE | 2018-02-09 21:00 | Consultation ---
DATE OF CONSULTATION: 02/09/2018 NOTE: INCOMPLETE DICTATION HEMATOLOGY/ONCOLOGY CONSULTATION CONSULTING PHYSICIAN: Humberto Damon M.D. REQUESTING PHYSICIAN: Christopher Rosado M.D. REASON FOR CONSULTATION: Evaluation of severe anemia. IDENTIFICATION DATA: Dear Dr. Rosado, The patient is a pleasant 62-year-old male with past medical history, which is significant for history of depression and anxiety. with anemia as noted. ____ Humberto Damon M.D. DR: ESTIVEN JOB#: [id number] CC:
[2018-02-10] VITALS: BP 120/60
[2018-02-10] MEDS: Sodium Citrate 30ml ORAL SCH ×4 (01:24→17:43)
[2018-02-10 04:00] VITALS: BP 121/68
[2018-02-10] MEDS: NovoLOG Insulin Flexpen SUBQ SCH ×6 (06:03→16:48)
[2018-02-10 06:16] LABS: BASOPHILS % (AUTO) 0.6 % (0.0-2.0); EOSINOPHILS % (AUTO) 1.7 % (0.0-3.0); HEMATOCRIT 27.5 % (42.0-52.0); MEAN CORPUSCULAR VOLUME 91 FL (80-99); MONOCYTES % (AUTO) 8.3 % (1.0-10.0); NEUTROPHILS % (AUTO) 78.5 % (45.0-75.0); PLATELET COUNT 303 K/UL (150-450); RED BLOOD COUNT 3.01 M/UL (4.70-6.10); RED CELL DISTRIBUTION WIDTH 16.1 % (11.6-14.8); WHITE BLOOD COUNT 8.3 K/UL (4.8-10.8)
--- NOTE | 2018-02-10 06:20 | General Progress Note ---
Assessment/Plan Problem List: (1) Vitamin D deficiency ICD Codes: E55.9 - Vitamin D deficiency, unspecified SNOMED: 63198325 (2) Retinopathy, diabetic, left eye ICD Codes: E11.319 - Type 2 diabetes mellitus with unspecified diabetic retinopathy without macular edema SNOMED: 0704924, 74415933 (3) Diabetes mellitus out of control ICD Codes: E11.65 - Type 2 diabetes mellitus with hyperglycemia SNOMED: 98611729, 107311909 (4) Renal insufficiency ICD Codes: N28.9 - Disorder of kidney and ureter, unspecified SNOMED: 887723809 (5) Psychiatric disturbance ICD Codes: F99 - Psychiatric disturbance SNOMED: 87685932 (6) HTN (hypertension) ICD Codes: I10 - HTN (hypertension) SNOMED: 37684514 (7) DKA (diabetic ketoacidoses) ICD Codes: E13.10 - Other specified diabetes mellitus with ketoacidosis without coma SNOMED: 141422696 Assessment/Plan glucose more stable without hypoglycemia - continue Levemir 9 units bid - DO NOT HOLD unless I am notified - continue Novolog 4 units ac tid - continue NISS ac / hs Subjective Allergies: Coded Allergies: CEFEPIME (Verified Allergy, Intermediate, Rash, 01/23/13) All Systems: reviewed and negative except above Subjective events noted glucose values more stable w/o hypoglycemia Objective Last 24 Hour Vital Signs Date Time Temp Pulse Resp B/P (MAP) Pulse Ox O2 Delivery O2 Flow Rate FiO2 02/10/18 04:00 97.9 72 18 121/68 (85) 98 97.9 02/10/18 00:00 98.1 66 18 120/60 (80) 97 98.1 02/09/18 21:00 Room Air 02/09/18 20:51 72 104/62 02/09/18 20:39 72 16 Room Air 21 02/09/18 20:03 99.0 76 17 104/62 (76) 96 99.0 02/09/18 16:00 98.1 69 18 133/77 (95) 98 98.1 02/09/18 12:07 97.5 63 18 136/47 (76) 97 97.5 02/09/18 08:40 58 124/66 02/09/18 08:15 Room Air 02/09/18 08:00 97.2 58 18 124/66 (85) 95 97.2 Intake and Output 02/09/18 02/10/18 19:00 07:00 Intake Total 755 ml 120 ml Output Total 950 ml 1200 ml Balance -195 ml -1080 ml Intake Oral 120 ml 120 ml IV Total 635 ml Output Urine Total 950 ml 1200 ml # Bowel Movements 2 1 Laboratory Tests 02/10/18 05:50: White Blood Count [Pending], Red Blood Count [Pending], Hemoglobin [Pending], Hematocrit [Pending], Mean Corpuscular Volume [Pending], Mean Corpuscular Hemoglobin [Pending], Mean Corpuscular Hemoglobin Concent [Pending], Red Cell Distribution Width [Pending], Platelet Count [Pending], Mean Platelet Volume [ Pending], Neutrophils (%) (Auto) [Pending], Lymphocytes (%) (Auto) [Pending], Monocytes (%) (Auto) [Pending], Eosinophils (%) (Auto) [Pending], Basophils (%) (Auto) [Pending], Sodium Level [Pending], Potassium Level [Pending], Chloride Level [Pending], Carbon Dioxide Level [Pending], Blood Urea Nitrogen [Pending], Creatinine [Pending], Estimat Glomerular Filtration Rate [Pending], Glucose Level [Pending], Calcium Level [Pending] Height (Feet): 5 Height (Inches): 8.00 Weight (Pounds): 161 General Appearance: no apparent distress Neck: normal alignment Cardiovascular: normal rate Respiratory/Chest: decreased breath sounds Abdomen: normal bowel sounds Objective Current Medications Medications (Trade) Dose Ordered Sig/Dunia Route PRN Reason Start Time Stop Time Status Last Admin Dose Admin Acetaminophen (Tylenol) 650 mg Q4H PRN ORAL fever (temp>100.5F) 02/05/18 13:30 03/07/18 13:29 Albuterol/ Ipratropium (Albuterol/ Ipratropium) 3 ml Q4H PRN HHN Shortness of Breath 02/05/18 13:30 02/10/18 13:29 02/07/18 01:00 Bupropion HCl (Wellbutrin XL) 150 mg DAILY ORAL 02/08/18 09:00 03/10/18 08:59 02/09/18 08:35 Chlorhexidine Gluconate (Eloisa-Hex 2%) 1 applic DAILY@2000 TOPIC 02/09/18 20:00 03/11/18 19:59 02/09/18 20:49 Dextrose (Dextrose 50%) 25 ml STAT PRN IV Hypoglycemia 02/05/18 14:15 03/07/18 14:14 Dextrose (Dextrose 50%) 50 ml STAT PRN IV Hypoglycemia 02/05/18 13:30 03/07/18 13:29 02/09/18 06:51 Duloxetine HCl (Cymbalta) 30 mg DAILY ORAL 02/06/18 09:00 03/08/18 08:59 02/09/18 08:35 Epoetin Jose (Procrit (for non ESRD use)) 10,000 units WED-WED-WED SUBQ 02/09/18 21:00 03/11/18 20:59 02/09/18 21:29 Ertapenem 0.5 gm/ Sodium Chloride 55 ml @ 110 mls/hr Q24H IVPB 02/06/18 15:00 02/11/18 14:59 02/09/18 14:22 Heparin Sodium/ Sodium Chloride (Heparin 2000 units/Ns 1000ml premix) 2,000 unit ONCE PRN INJ FOR PICC LINE PLACEMENT 02/09/18 13:15 02/11/18 13:14 Hydralazine HCl (Apresoline) 25 mg Q4H PRN ORAL bp over 160 syst 02/08/18 09:30 03/10/18 09:29 Insulin Aspart (NovoLOG) BEFORE MEALS AND HS SUBQ 02/05/18 16:30 03/07/18 16:29 02/10/18 06:03 Insulin Aspart (NovoLOG) 4 units NOVOTIAC SUBQ 02/09/18 11:50 03/07/18 16:49 02/10/18 06:04 Insulin Detemir (Levemir) 9 units BID SUBQ 02/09/18 09:00 03/07/18 17:59 02/09/18 18:13 Lidocaine HCl (Xylocaine 1% 30ml) 30 ml ONCE PRN INJ PICC LINE PLACEMENT 02/09/18 13:15 02/11/18 13:14 Metoprolol Succinate (Toprol XL) 50 mg Q12HR ORAL 02/05/18 21:00 03/07/18 20:59 02/09/18 20:51 Morphine Sulfate (Morphine Sulfate) 2 mg Q4H PRN IVP Moderate Pain (Pain Scale 4-6) 02/05/18 13:30 02/12/18 13:29 Nitroglycerin (Ntg) 0.4 mg Q5M PRN SL Prn Chest Pain 02/05/18 13:30 03/07/18 13:29 Ondansetron HCl (Zofran) 4 mg Q6H PRN ORAL Nausea & Vomiting 02/05/18 13:30 03/07/18 13:29 Polyethylene Glycol (Miralax) 17 gm DAILYPRN PRN ORAL Constipation 02/05/18 13:30 03/07/18 13:29 Sevelamer Carbonate (Renvela) 800 mg THREE TIMES A DAY ORAL 02/05/18 18:00 03/07/18 17:59 02/09/18 18:09 Sodium Chloride 1,000 ml @ 75 mls/hr [id number] IV 02/07/18 15:15 03/09/18 15:14 02/09/18 06:44 Sodium Citrate (Bicitra) 45 ml EVERY 6 HOURS ORAL 02/08/18 12:00 03/09/18 17:59 02/10/18 06:01 Temazepam (Restoril) 15 mg HSPRN PRN ORAL Insomnia 02/05/18 13:30 02/12/18 13:29 Item Value Date Time Bedside Blood Glucose 217 mg/dl H 02/10/18 0616 Bedside Blood Glucose 178 mg/dl H 02/09/18 2100 Bedside Blood Glucose 189 mg/dl H 02/09/18 1813 Bedside Blood Glucose 219 mg/dl H 02/09/18 1239 Bedside Blood Glucose 164 mg/dl H 02/09/18 0914 Modesto Jacques MD Feb 10, 2018 06:20
[2018-02-10 06:29] LABS: ANION GAP 20 mmol/L (5-15); BLOOD UREA NITROGEN 63 mg/dL (7-18); CALCIUM 8.1 MG/DL (8.5-10.1); CARBON DIOXIDE 13 MMOL/L (21-32); CHLORIDE 109 MMOL/L (98-107); CREATININE 4.8 MG/DL (0.55-1.30); POTASSIUM 3.2 MMOL/L (3.5-5.1); SODIUM 142 MMOL/L (136-145)
[2018-02-10 08:00] VITALS: BP 155/81
[2018-02-10] MEDS: DULoxetine 30mg cap ORAL SCH (08:38)
[2018-02-10] MEDS: BuPROPion XL 150mg tab ORAL SCH (08:38)
[2018-02-10] MEDS: Renvela 800mg Pkt ORAL SCH ×3 (08:38→17:43)
[2018-02-10] MEDS: Metoprolol Succinate XL 50mg tab ORAL SCH (08:39)
[2018-02-10 08:49] LABS: ALANINE AMINOTRANSFERASE 10 U/L (12-78); ALBUMIN 2.8 G/DL (3.4-5.0); ALKALINE PHOSPHATASE 66 U/L (46-116); ASPARTATE AMINO TRANSFERASE 13 U/L (15-37); BILIRUBIN,DIRECT 0.1 MG/DL (0.0-0.3); BILIRUBIN,TOTAL 0.5 MG/DL (0.2-1.0); PHOSPHORUS 4.8 MG/DL (2.5-4.9)
--- NOTE | 2018-02-10 08:50 | General Progress Note ---
Assessment/Plan Status: stable Assessment/Plan #. Anemia due to hematuria - has dropped further, in the 7-8 range. --> transfused 1 unit on 02/09, monitor prn basis and monitor for hematuria. --> anemia w/u has been reviewed. Will trend CBC daily. --> no iron deficiency noted, or hemolysis --> hgb goal is >7 #. Anemia due to ckd --> continue procrit per nephrology. --> sufficient iron stores are noted. #. Hyperglycemia. #. Diabetes type 2, uncontrolled. #. Renal failure, stage 4. #. Hypertension. Pt on metoprolol. #. Renal osteodystrophy. #. Secondary hyperparathyroidism. #. Gastritis. #. Coronary artery disease. The time the note was entered does not necessarily correspond to the time the patient was seen. Subjective Date patient seen: Feb 10, 2018 ROS Limited/Unobtainable: Yes Hematologic/Lymphatic: Reports: anemia Allergies: Coded Allergies: CEFEPIME (Verified Allergy, Intermediate, Rash, 01/23/13) All Systems: reviewed and negative except above Subjective S/P 1 unit PRBC, tolerated well. Hgb improved to 9.0 No acute events. Vitals are stable. DC planning. Objective Last 24 Hour Vital Signs Date Time Temp Pulse Resp B/P (MAP) Pulse Ox O2 Delivery O2 Flow Rate FiO2 02/10/18 08:39 83 155/81 02/10/18 04:00 97.9 72 18 121/68 (85) 98 97.9 02/10/18 00:00 98.1 66 18 120/60 (80) 97 98.1 02/09/18 21:00 Room Air 02/09/18 20:51 72 104/62 02/09/18 20:39 72 16 Room Air 21 02/09/18 20:03 99.0 76 17 104/62 (76) 96 99.0 02/09/18 16:00 98.1 69 18 133/77 (95) 98 98.1 02/09/18 12:07 97.5 63 18 136/47 (76) 97 97.5 Intake and Output 02/09/18 02/10/18 19:00 07:00 Intake Total 755 ml 120 ml Output Total 950 ml 1200 ml Balance -195 ml -1080 ml Intake Oral 120 ml 120 ml IV Total 635 ml Output Urine Total 950 ml 1200 ml # Bowel Movements 2 1 Laboratory Tests 02/10/18 05:50: White Blood Count 8.3, Red Blood Count 3.01L, Hemoglobin 9.0L, Hematocrit 27.5L , Mean Corpuscular Volume 91, Mean Corpuscular Hemoglobin 29.9, Mean Corpuscular Hemoglobin Concent 32.7, Red Cell Distribution Width 16.1H, Platelet Count 303, Mean Platelet Volume 6.5, Neutrophils (%) (Auto) 78.5H, Lymphocytes (%) (Auto) 11.0L, Monocytes (%) (Auto) 8.3, Eosinophils (%) (Auto) 1.7, Basophils (%) (Auto) 0.6, Sodium Level 142, Potassium Level 3.2L, Chloride Level 109H, Carbon Dioxide Level 13L, Anion Gap 20H, Blood Urea Nitrogen 63H, Creatinine 4.8H, Estimat Glomerular Filtration Rate 12.3, Glucose Level 217#H, Calcium Level 8.1L, Phosphorus Level [Pending], Magnesium Level [Pending], Total Bilirubin [Pending], Direct Bilirubin [Pending], Aspartate Amino Transf ( AST/SGOT) [Pending], Alanine Aminotransferase (ALT/SGPT) [Pending], Alkaline Phosphatase [Pending], Total Protein [Pending], Albumin [Pending] Height (Feet): 5 Height (Inches): 8.00 Weight (Pounds): 161 General Appearance: no apparent distress EENT: PERRL/EOMI Neck: normal alignment Cardiovascular: normal peripheral pulses Respiratory/Chest: no respiratory distress Abdomen: soft Humberto Damon MD Feb 10, 2018 08:50
[2018-02-10] MEDS: Levemir Flexpen SUBQ SCH ×2 (09:57→18:24)
--- NOTE | 2018-02-10 10:31 | Nephrology Progress Note ---
Assessment/Plan Problem List: (1) Acute on chronic renal failure (2) Metabolic acidosis due to diabetes mellitus Assessment: and due to Uremia (3) Hematuria (4) BPH (benign prostatic hypertrophy) (5) Anemia (6) Nephropathy, diabetic Assessment Acute renal failure on chronic kidney disease Metabolic acidosis and HyperGlycemia Recurrent hematuria Probably UTI with a history of recurrent UTI Anemia due to acute blood loss( i.e. hematuria) and CKD Leukocytosis Suprapubic catheter Neurogenic bladder BPH Status post renal pancreatic transplant Elevated lipase, lowering Diabetes mellitus type 2 with hx of DKA Hypertension COPD/asthma Coronary artery disease with history of NSTEMI major depressive disorder with history of suicidal attempt encephalopathy Plan change diet to renal IV Fluids K and Mag as needed Bicitra PO Anemia [place], EPO Gastric support BS control patient DNR monitor renal parameters avoid nephrotoxics will discuss with DPOA / Decision maker Subjective ROS Limited/Unobtainable: No Constitutional: Reports: malaise Objective Objective Last 24 Hour Vital Signs Date Time Temp Pulse Resp B/P (MAP) Pulse Ox O2 Delivery O2 Flow Rate FiO2 02/10/18 09:00 Room Air 02/10/18 08:39 83 155/81 02/10/18 08:36 69 16 Room Air 21 02/10/18 08:00 99.0 83 18 155/81 (105) 95 99.0 02/10/18 04:00 97.9 72 18 121/68 (85) 98 97.9 02/10/18 00:00 98.1 66 18 120/60 (80) 97 98.1 02/09/18 21:00 Room Air 02/09/18 20:51 72 104/62 02/09/18 20:39 72 16 Room Air 21 02/09/18 20:03 99.0 76 17 104/62 (76) 96 99.0 02/09/18 16:00 98.1 69 18 133/77 (95) 98 98.1 02/09/18 12:07 97.5 63 18 136/47 (76) 97 97.5 Intake and Output 02/09/18 02/10/18 19:00 07:00 Intake Total 755 ml 120 ml Output Total 950 ml 1200 ml Balance -195 ml -1080 ml Intake Oral 120 ml 120 ml IV Total 635 ml Output Urine Total 950 ml 1200 ml # Bowel Movements 2 1 Laboratory Tests 02/10/18 05:50: White Blood Count 8.3, Red Blood Count 3.01L, Hemoglobin 9.0L, Hematocrit 27.5L , Mean Corpuscular Volume 91, Mean Corpuscular Hemoglobin 29.9, Mean Corpuscular Hemoglobin Concent 32.7, Red Cell Distribution Width 16.1H, Platelet Count 303, Mean Platelet Volume 6.5, Neutrophils (%) (Auto) 78.5H, Lymphocytes (%) (Auto) 11.0L, Monocytes (%) (Auto) 8.3, Eosinophils (%) (Auto) 1.7, Basophils (%) (Auto) 0.6, Sodium Level 142, Potassium Level 3.2L, Chloride Level 109H, Carbon Dioxide Level 13L, Anion Gap 20H, Blood Urea Nitrogen 63H, Creatinine 4.8H, Estimat Glomerular Filtration Rate 12.3, Glucose Level 217#H, Calcium Level 8.1L, Phosphorus Level 4.8, Magnesium Level 1.7L, Total Bilirubin 0.5, Direct Bilirubin 0.1, Aspartate Amino Transf (AST/SGOT) 13L, Alanine Aminotransferase (ALT/SGPT) 10L, Alkaline Phosphatase 66, Total Protein 6.4, Albumin 2.8L Height (Feet): 5 Height (Inches): 8.00 Weight (Pounds): 161 General Appearance: no apparent distress Respiratory/Chest: decreased breath sounds Abdomen: distended Genitourinary/Rectal: other - supra pubic cath Luis Chambers MD Feb 10, 2018 10:31
--- NOTE | 2018-02-10 11:20 | Pre-Procedure Note/Attestation ---
Pre-Procedure Note/Attestation Complete Prior to Procedure Planned Procedure: bilateral Procedure Narrative: attempted PICC line placement Indications for Procedure Pre-Operative Diagnosis: Unable to obtain reliable IV access Attestation Informed consent obtained by the primary team, confirmed prior to procedure I attest that I re-evaluated the patient just prior to the surgery and that there has been no change in the patient's H&P, except as documented below: Lester Brink M.D. Feb 10, 2018 11:20
--- NOTE | 2018-02-10 11:27 | Operative Note - PDOC ---
Operative Note Operative Note Date of Operation/Procedure: Feb 10, 2018 Pre-op Diagnosis: Unable to obtain reliable IV access Procedure: attempted PICC line Post-op Diagnosis: clotted veins in the arms bilaterally. Unable to thread wire centrally. Patient has had multipe PICC lines in the past. Post-op Diagnosis: same as pre-op plus Operative Findings: other Anesthesia: local Specimen: none Complications: none Condition: stable Estimated Blood Loss: minimal Drains: none Implant(s) used?: No Indications for Procedure Need IV accsess Description of Procedure multiple PICC lines in the past. Veins of the bilateral upper extremities appear occluded on limited US. Accessed a brachial vein or larger collateral in the left forearm however wire would not thread centrally. If needs IV access recommend central line Lester Brink M.D. Feb 10, 2018 11:26
[2018-02-10 12:00] VITALS: BP 140/78
--- NOTE | 2018-02-10 14:28 | Pulmonology Progress Note ---
Assessment/Plan Problems: (1) Pulmonary HTN (2) Sepsis (3) Hematuria (4) Encephalopathy acute (5) Acute on chronic renal failure (6) Acute hyperglycemia (7) Depression, major (8) Anemia in chronic kidney disease (9) Suprapubic catheter Assessment/Plan wbc wnl for second day on IV meropenen day 6 , now on Levemir 9 BID transfuse one unit of prbc iv fluids check electrolytes, BUN creatinine decreasing f/u by Nephrology sliding scale psych to follow check h/h prbc prn Subjective ROS Limited/Unobtainable: No Constitutional: Reports: no symptoms HEENT: Repors: no symptoms Respiratory: Reports: no symptoms Allergies: Coded Allergies: CEFEPIME (Verified Allergy, Intermediate, Rash, 01/23/13) Objective Last 24 Hour Vital Signs Date Time Temp Pulse Resp B/P (MAP) Pulse Ox O2 Delivery O2 Flow Rate FiO2 02/10/18 12:00 98.2 75 18 140/78 (98) 97 98.2 02/10/18 09:00 Room Air 02/10/18 08:39 83 155/81 02/10/18 08:36 69 16 Room Air 21 02/10/18 08:00 99.0 83 18 155/81 (105) 95 99.0 02/10/18 04:00 97.9 72 18 121/68 (85) 98 97.9 02/10/18 00:00 98.1 66 18 120/60 (80) 97 98.1 02/09/18 21:00 Room Air 02/09/18 20:51 72 104/62 02/09/18 20:39 72 16 Room Air 21 02/09/18 20:03 99.0 76 17 104/62 (76) 96 99.0 02/09/18 16:00 98.1 69 18 133/77 (95) 98 98.1 Intake and Output 02/09/18 02/10/18 19:00 07:00 Intake Total 755 ml 120 ml Output Total 950 ml 1200 ml Balance -195 ml -1080 ml Intake Oral 120 ml 120 ml IV Total 635 ml Output Urine Total 950 ml 1200 ml # Bowel Movements 2 1 General Appearance: WD/WN HEENT: normocephalic, atraumatic Respiratory/Chest: chest wall non-tender, lungs clear Cardiovascular: normal peripheral pulses, normal rate Abdomen: normal bowel sounds, soft, non tender Extremities: no cyanosis, no clubbing Skin: no rash Laboratory Tests 02/10/18 05:50: White Blood Count 8.3, Red Blood Count 3.01L, Hemoglobin 9.0L, Hematocrit 27.5L , Mean Corpuscular Volume 91, Mean Corpuscular Hemoglobin 29.9, Mean Corpuscular Hemoglobin Concent 32.7, Red Cell Distribution Width 16.1H, Platelet Count 303, Mean Platelet Volume 6.5, Neutrophils (%) (Auto) 78.5H, Lymphocytes (%) (Auto) 11.0L, Monocytes (%) (Auto) 8.3, Eosinophils (%) (Auto) 1.7, Basophils (%) (Auto) 0.6, Sodium Level 142, Potassium Level 3.2L, Chloride Level 109H, Carbon Dioxide Level 13L, Anion Gap 20H, Blood Urea Nitrogen 63H, Creatinine 4.8H, Estimat Glomerular Filtration Rate 12.3, Glucose Level 217#H, Calcium Level 8.1L, Phosphorus Level 4.8, Magnesium Level 1.7L, Total Bilirubin 0.5, Direct Bilirubin 0.1, Aspartate Amino Transf (AST/SGOT) 13L, Alanine Aminotransferase (ALT/SGPT) 10L, Alkaline Phosphatase 66, Total Protein 6.4, Albumin 2.8L Current Medications Medications (Trade) Dose Ordered Sig/Dunia Route PRN Reason Start Time Stop Time Status Last Admin Dose Admin Acetaminophen (Tylenol) 650 mg Q4H PRN ORAL fever (temp>100.5F) 02/05/18 13:30 03/07/18 13:29 Bupropion HCl (Wellbutrin XL) 150 mg DAILY ORAL 02/08/18 09:00 03/10/18 08:59 02/10/18 08:38 Chlorhexidine Gluconate (Eloisa-Hex 2%) 1 applic DAILY@1999 TOPIC 02/09/18 20:00 03/11/18 19:59 02/09/18 20:49 Dextrose (Dextrose 50%) 25 ml STAT PRN IV Hypoglycemia 02/05/18 14:15 03/07/18 14:14 Dextrose (Dextrose 50%) 50 ml STAT PRN IV Hypoglycemia 02/05/18 13:30 03/07/18 13:29 02/09/18 06:51 Duloxetine HCl (Cymbalta) 30 mg DAILY ORAL 02/06/18 09:00 03/08/18 08:59 02/10/18 08:38 Epoetin Jose (Procrit (for non ESRD use)) 10,000 units WED-WED-WED SUBQ 02/09/18 21:00 03/11/18 20:59 02/09/18 21:29 Ertapenem 0.5 gm/ Sodium Chloride 55 ml @ 110 mls/hr Q24H IVPB 02/06/18 15:00 02/15/18 14:59 02/09/18 14:22 Heparin Sodium/ Sodium Chloride (Heparin 2000 units/Ns 1000ml premix) 2,000 unit ONCE PRN INJ FOR PICC LINE PLACEMENT 02/09/18 13:15 02/11/18 13:14 Hydralazine HCl (Apresoline) 25 mg Q4H PRN ORAL bp over 160 syst 02/08/18 09:30 03/10/18 09:29 Insulin Aspart (NovoLOG) BEFORE MEALS AND HS SUBQ 02/05/18 16:30 03/07/18 16:29 02/10/18 12:34 Insulin Aspart (NovoLOG) 4 units NOVOTIAC SUBQ 02/09/18 11:50 03/07/18 16:49 02/10/18 12:33 Insulin Detemir (Levemir) 9 units BID SUBQ 02/09/18 09:00 03/07/18 17:59 02/10/18 09:57 Lidocaine HCl (Xylocaine 1% 30ml) 30 ml ONCE PRN INJ PICC LINE PLACEMENT 02/09/18 13:15 02/11/18 13:14 Metoprolol Succinate (Toprol XL) 50 mg Q12HR ORAL 02/05/18 21:00 03/07/18 20:59 02/10/18 08:39 Morphine Sulfate (Morphine Sulfate) 2 mg Q4H PRN IVP Moderate Pain (Pain Scale 4-6) 02/05/18 13:30 02/12/18 13:29 Nitroglycerin (Ntg) 0.4 mg Q5M PRN SL Prn Chest Pain 02/05/18 13:30 03/07/18 13:29 Ondansetron HCl (Zofran) 4 mg Q6H PRN ORAL Nausea & Vomiting 02/05/18 13:30 03/07/18 13:29 Polyethylene Glycol (Miralax) 17 gm DAILYPRN PRN ORAL Constipation 02/05/18 13:30 03/07/18 13:29 Sevelamer Carbonate (Renvela) 800 mg THREE TIMES A DAY ORAL 02/05/18 18:00 03/07/18 17:59 02/10/18 12:33 Sodium Chloride 1,000 ml @ 75 mls/hr [id number] IV 02/07/18 15:15 03/09/18 15:14 02/09/18 06:44 Sodium Citrate (Bicitra) 45 ml EVERY 6 HOURS ORAL 02/08/18 12:00 03/09/18 17:59 02/10/18 12:33 Temazepam (Restoril) 15 mg HSPRN PRN ORAL Insomnia 02/05/18 13:30 02/12/18 13:29 Esdras Delgado MD Feb 10, 2018 14:28
[2018-02-10] MEDS ORDERED: INVANZ1 G1 IVPB (15:12)
[2018-02-10] MEDS: Ertapenem 0.5gm in NS 55ml IVPB SCH (15:32)
[2018-02-10 16:00] VITALS: BP 133/61
--- NOTE | 2018-02-10 16:16 | Internal Med Progress Note ---
Subjective Date of Service: Feb 10, 2018 Physician Name GlasgowJose Attending Physician Christopher Rosado MD Current Medications Medications (Trade) Dose Ordered Sig/Dunia Route PRN Reason Start Time Stop Time Status Last Admin Dose Admin Acetaminophen (Tylenol) 650 mg Q4H PRN ORAL fever (temp>100.5F) 02/05/18 13:30 03/07/18 13:29 Bupropion HCl (Wellbutrin XL) 150 mg DAILY ORAL 02/08/18 09:00 03/10/18 08:59 02/10/18 08:38 Chlorhexidine Gluconate (Eloisa-Hex 2%) 1 applic DAILY@2000 TOPIC 02/09/18 20:00 03/11/18 19:59 02/09/18 20:49 Dextrose (Dextrose 50%) 25 ml STAT PRN IV Hypoglycemia 02/05/18 14:15 03/07/18 14:14 Dextrose (Dextrose 50%) 50 ml STAT PRN IV Hypoglycemia 02/05/18 13:30 03/07/18 13:29 02/09/18 06:51 Duloxetine HCl (Cymbalta) 30 mg DAILY ORAL 02/06/18 09:00 03/08/18 08:59 02/10/18 08:38 Epoetin Jose (Procrit (for non ESRD use)) 10,000 units WED-WED-WED SUBQ 02/09/18 21:00 03/11/18 20:59 02/09/18 21:29 Ertapenem 0.5 gm/ Sodium Chloride 55 ml @ 110 mls/hr Q24H IVPB 02/06/18 15:00 02/15/18 14:59 02/10/18 15:32 Heparin Sodium/ Sodium Chloride (Heparin 2000 units/Ns 1000ml premix) 2,000 unit ONCE PRN INJ FOR PICC LINE PLACEMENT 02/09/18 13:15 02/11/18 13:14 Hydralazine HCl (Apresoline) 25 mg Q4H PRN ORAL bp over 160 syst 02/08/18 09:30 03/10/18 09:29 Insulin Aspart (NovoLOG) BEFORE MEALS AND HS SUBQ 02/05/18 16:30 03/07/18 16:29 02/10/18 12:34 Insulin Aspart (NovoLOG) 4 units NOVOTIAC SUBQ 02/09/18 11:50 03/07/18 16:49 02/10/18 12:33 Insulin Detemir (Levemir) 9 units BID SUBQ 02/09/18 09:00 03/07/18 17:59 02/10/18 09:57 Lidocaine HCl (Xylocaine 1% 30ml) 30 ml ONCE PRN INJ PICC LINE PLACEMENT 02/09/18 13:15 02/11/18 13:14 Metoprolol Succinate (Toprol XL) 50 mg Q12HR ORAL 02/05/18 21:00 03/07/18 20:59 02/10/18 08:39 Morphine Sulfate (Morphine Sulfate) 2 mg Q4H PRN IVP Moderate Pain (Pain Scale 4-6) 02/05/18 13:30 02/12/18 13:29 Nitroglycerin (Ntg) 0.4 mg Q5M PRN SL Prn Chest Pain 02/05/18 13:30 03/07/18 13:29 Ondansetron HCl (Zofran) 4 mg Q6H PRN ORAL Nausea & Vomiting 02/05/18 13:30 03/07/18 13:29 Polyethylene Glycol (Miralax) 17 gm DAILYPRN PRN ORAL Constipation 02/05/18 13:30 03/07/18 13:29 Sevelamer Carbonate (Renvela) 800 mg THREE TIMES A DAY ORAL 02/05/18 18:00 03/07/18 17:59 02/10/18 12:33 Sodium Chloride 1,000 ml @ 75 mls/hr [id number] IV 02/07/18 15:15 03/09/18 15:14 02/09/18 06:44 Sodium Citrate (Bicitra) 45 ml EVERY 6 HOURS ORAL 02/08/18 12:00 03/09/18 17:59 02/10/18 12:33 Temazepam (Restoril) 15 mg HSPRN PRN ORAL Insomnia 02/05/18 13:30 02/12/18 13:29 Allergies: Coded Allergies: CEFEPIME (Verified Allergy, Intermediate, Rash, 01/23/13) ROS Limited/Unobtainable: No Constitutional: Reports: no symptoms HEENT: Reports: no symptoms Cardiovascular: Reports: no symptoms Respiratory: Reports: no symptoms Gastrointestinal/Abdominal: Reports: no symptoms Genitourinary: Reports: no symptoms Neurologic/Psychiatric: Reports: no symptoms Subjective 62 YO M admitted with hematuria. Now UTI. Refusing to eat and refusing insulin. Cover for Int Med-Dr Rosado. AccuStick labile. S/P supraqubic cath replacement. Await transfer to [facility] Objective Last Vital Signs Date Time Temp Pulse Resp B/P (MAP) Pulse Ox O2 Delivery O2 Flow Rate FiO2 02/10/18 12:00 98.2 75 18 140/78 (98) 97 98.2 02/10/18 09:00 Room Air 02/10/18 08:36 21 Laboratory Tests Test 02/10/18 05:50 White Blood Count 8.3 K/UL (4.8-10.8) Red Blood Count 3.01 M/UL (4.70-6.10) L Hemoglobin 9.0 G/DL (14.2-18.0) L Hematocrit 27.5 % (42.0-52.0) L Mean Corpuscular Volume 91 FL (80-99) Mean Corpuscular Hemoglobin 29.9 PG (27.0-31.0) Mean Corpuscular Hemoglobin Concent 32.7 G/DL (32.0-36.0) Red Cell Distribution Width 16.1 % (11.6-14.8) H Platelet Count 303 K/UL (150-450) Mean Platelet Volume 6.5 FL (6.5-10.1) Neutrophils (%) (Auto) 78.5 % (45.0-75.0) H Lymphocytes (%) (Auto) 11.0 % (20.0-45.0) L Monocytes (%) (Auto) 8.3 % (1.0-10.0) Eosinophils (%) (Auto) 1.7 % (0.0-3.0) Basophils (%) (Auto) 0.6 % (0.0-2.0) Sodium Level 142 MMOL/L (136-145) Potassium Level 3.2 MMOL/L (3.5-5.1) L Chloride Level 109 MMOL/L (98-107) H Carbon Dioxide Level 13 MMOL/L (21-32) L Anion Gap 20 mmol/L (5-15) H Blood Urea Nitrogen 63 mg/dL (7-18) H Creatinine 4.8 MG/DL (0.55-1.30) H Estimat Glomerular Filtration Rate 12.3 mL/min (>60) Glucose Level 217 MG/DL (74-106) #H Calcium Level 8.1 MG/DL (8.5-10.1) L Phosphorus Level 4.8 MG/DL (2.5-4.9) Magnesium Level 1.7 MG/DL (1.8-2.4) L Total Bilirubin 0.5 MG/DL (0.2-1.0) Direct Bilirubin 0.1 MG/DL (0.0-0.3) Aspartate Amino Transf (AST/SGOT) 13 U/L (15-37) L Alanine Aminotransferase (ALT/SGPT) 10 U/L (12-78) L Alkaline Phosphatase 66 U/L (46-116) Total Protein 6.4 G/DL (6.4-8.2) Albumin 2.8 G/DL (3.4-5.0) L Intake and Output 02/09/18 02/10/18 19:00 07:00 Intake Total 755 ml 120 ml Output Total 950 ml 1200 ml Balance -195 ml -1080 ml Intake Oral 120 ml 120 ml IV Total 635 ml Output Urine Total 950 ml 1200 ml # Bowel Movements 2 1 Objective General Appearance: WD/WN, no apparent distress, alert EENT: PERRL/EOMI, normal ENT inspection Neck: non-tender, normal alignment, supple, normal inspection Cardiovascular: normal peripheral pulses, normal rate, regular rhythm, no gallop/murmur, no JVD Respiratory/Chest: chest wall non-tender, lungs clear, normal breath sounds, no respiratory distress, no accessory muscle use Abdomen: normal bowel sounds, non tender, soft, no organomegaly, no mass Extremities: normal range of motion, non-tender 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 Cont ertapenem per ID S/P suprapubic cath replacement by urology -see note. (3) DM (diabetes mellitus) Assessment & Plan: Refusing to eat and insulin therapy. Uncontrolled. Continue levemir and novolog sliding scale. See Endocrinology note. (4) CAD (coronary artery disease) (5) HTN (hypertension) Assessment & Plan: Continue norvasc and toprol (6) CKD (chronic kidney disease), stage III (7) DKA (diabetic ketoacidoses) Assessment & Plan: See endocrinology note. (8) Depression, major Assessment & Plan: See psychiatry consult. (9) Non compliance with medical treatment Status: stable Assessment/Plan Discharge to [facility] today Jose Glasgow MD Feb 10, 2018 16:16
--- NOTE | 2018-02-10 16:52 | Urology Progress Note ---
Assessment/Plan Assessment/Plan 1. Hematuria, which is resolving. 2. Urinary retention. 3. BPH history. 4. Neurogenic bladder. 5. Pyuria with colonization. 6. Proteinuria. 7. Renal cyst. SP tube last changed 02/08 monitor clinically hand irrigate sp tube PRN abx as ordered cysto later Subjective Allergies: Coded Allergies: CEFEPIME (Verified Allergy, Intermediate, Rash, 01/23/13) Subjective all noted, sp tube draining Objective Last 24 Hour Vital Signs Date Time Temp Pulse Resp B/P (MAP) Pulse Ox O2 Delivery O2 Flow Rate FiO2 02/10/18 12:00 98.2 75 18 140/78 (98) 97 98.2 02/10/18 09:00 Room Air 02/10/18 08:39 83 155/81 02/10/18 08:36 69 16 Room Air 21 02/10/18 08:00 99.0 83 18 155/81 (105) 95 99.0 02/10/18 04:00 97.9 72 18 121/68 (85) 98 97.9 02/10/18 00:00 98.1 66 18 120/60 (80) 97 98.1 02/09/18 21:00 Room Air 02/09/18 20:51 72 104/62 02/09/18 20:39 72 16 Room Air 21 02/09/18 20:03 99.0 76 17 104/62 (76) 96 99.0 Intake and Output 02/09/18 02/10/18 19:00 07:00 Intake Total 755 ml 120 ml Output Total 950 ml 1200 ml Balance -195 ml -1080 ml Intake Oral 120 ml 120 ml IV Total 635 ml Output Urine Total 950 ml 1200 ml # Bowel Movements 2 1 Microbiology Date/Time Source Procedure Growth Status 02/05/18 13:06 Blood Blood Culture - Preliminary NO GROWTH AFTER 4 DAYS Resulted 02/05/18 12:41 Nasal Nares MRSA Culture - Final Staphylococcus Aureus - Mrsa Complete 02/05/18 12:00 Urine,Clean Catch Urine Culture - Final Providencia Stuartii Complete 02/05/18 12:41 Rectum VRE Culture - Final Enterococcus Faecalis - Vre Complete Current Medications Medications (Trade) Dose Ordered Sig/Dnuia Route PRN Reason Start Time Stop Time Status Last Admin Dose Admin Acetaminophen (Tylenol) 650 mg Q4H PRN ORAL fever (temp>100.5F) 02/05/18 13:30 03/07/18 13:29 Bupropion HCl (Wellbutrin XL) 150 mg DAILY ORAL 02/08/18 09:00 03/10/18 08:59 02/10/18 08:38 Chlorhexidine Gluconate (Eloisa-Hex 2%) 1 applic DAILY@2000 TOPIC 02/09/18 20:00 03/11/18 19:59 02/09/18 20:49 Dextrose (Dextrose 50%) 25 ml STAT PRN IV Hypoglycemia 02/05/18 14:15 03/07/18 14:14 Dextrose (Dextrose 50%) 50 ml STAT PRN IV Hypoglycemia 02/05/18 13:30 03/07/18 13:29 02/09/18 06:51 Duloxetine HCl (Cymbalta) 30 mg DAILY ORAL 02/06/18 09:00 03/08/18 08:59 02/10/18 08:38 Epoetin Jose (Procrit (for non ESRD use)) 10,000 units WED-WED-WED SUBQ 02/09/18 21:00 03/11/18 20:59 02/09/18 21:29 Ertapenem 0.5 gm/ Sodium Chloride 55 ml @ 110 mls/hr Q24H IVPB 02/06/18 15:00 02/15/18 14:59 02/10/18 15:32 Heparin Sodium/ Sodium Chloride (Heparin 2000 units/Ns 1000ml premix) 2,000 unit ONCE PRN INJ FOR PICC LINE PLACEMENT 02/09/18 13:15 02/11/18 13:14 Hydralazine HCl (Apresoline) 25 mg Q4H PRN ORAL bp over 160 syst 02/08/18 09:30 03/10/18 09:29 Insulin Aspart (NovoLOG) BEFORE MEALS AND HS SUBQ 02/05/18 16:30 03/07/18 16:29 02/10/18 16:48 Insulin Aspart (NovoLOG) 4 units NOVOTIAC SUBQ 02/09/18 11:50 03/07/18 16:49 02/10/18 16:47 Insulin Detemir (Levemir) 9 units BID SUBQ 02/09/18 09:00 03/07/18 17:59 02/10/18 09:57 Lidocaine HCl (Xylocaine 1% 30ml) 30 ml ONCE PRN INJ PICC LINE PLACEMENT 02/09/18 13:15 02/11/18 13:14 Magnesium Sulfate 100 ml @ 100 mls/hr Q1H IVPB 02/10/18 16:30 02/10/18 18:29 Metoprolol Succinate (Toprol XL) 50 mg Q12HR ORAL 02/05/18 21:00 03/07/18 20:59 02/10/18 08:39 Morphine Sulfate (Morphine Sulfate) 2 mg Q4H PRN IVP Moderate Pain (Pain Scale 4-6) 02/05/18 13:30 02/12/18 13:29 Nitroglycerin (Ntg) 0.4 mg Q5M PRN SL Prn Chest Pain 02/05/18 13:30 03/07/18 13:29 Ondansetron HCl (Zofran) 4 mg Q6H PRN ORAL Nausea & Vomiting 02/05/18 13:30 03/07/18 13:29 Polyethylene Glycol (Miralax) 17 gm DAILYPRN PRN ORAL Constipation 02/05/18 13:30 03/07/18 13:29 Sevelamer Carbonate (Renvela) 800 mg THREE TIMES A DAY ORAL 02/05/18 18:00 03/07/18 17:59 02/10/18 12:33 Sodium Chloride 1,000 ml @ 75 mls/hr [id number] IV 02/07/18 15:15 03/09/18 15:14 02/09/18 06:44 Sodium Citrate (Bicitra) 45 ml EVERY 6 HOURS ORAL 02/08/18 12:00 03/09/18 17:59 02/10/18 12:33 Temazepam (Restoril) 15 mg HSPRN PRN ORAL Insomnia 02/05/18 13:30 02/12/18 13:29 Laboratory Tests 02/10/18 05:50: White Blood Count 8.3, Red Blood Count 3.01L, Hemoglobin 9.0L, Hematocrit 27.5L , Mean Corpuscular Volume 91, Mean Corpuscular Hemoglobin 29.9, Mean Corpuscular Hemoglobin Concent 32.7, Red Cell Distribution Width 16.1H, Platelet Count 303, Mean Platelet Volume 6.5, Neutrophils (%) (Auto) 78.5H, Lymphocytes (%) (Auto) 11.0L, Monocytes (%) (Auto) 8.3, Eosinophils (%) (Auto) 1.7, Basophils (%) (Auto) 0.6, Sodium Level 142, Potassium Level 3.2L, Chloride Level 109H, Carbon Dioxide Level 13L, Anion Gap 20H, Blood Urea Nitrogen 63H, Creatinine 4.8H, Estimat Glomerular Filtration Rate 12.3, Glucose Level 217#H, Calcium Level 8.1L, Phosphorus Level 4.8, Magnesium Level 1.7L, Total Bilirubin 0.5, Direct Bilirubin 0.1, Aspartate Amino Transf (AST/SGOT) 13L, Alanine Aminotransferase (ALT/SGPT) 10L, Alkaline Phosphatase 66, Total Protein 6.4, Albumin 2.8L Height (Feet): 5 Height (Inches): 8.00 Weight (Pounds): 161 Objective exam stable, sp tube in place, urine carly ALEXANDRI[place] JOE Feb 10, 2018 16:52
--- NOTE | 2018-02-10 17:31 | Infectious Diseases Prog Note ---
Assessment/Plan Assessment/Plan Abx: Ertapenem x1 02/05 Linezolid x1 02/05 IV Vancomycin Assessment: Hematuria, recurrent R/o UTI - Cx growing Providencia sensitive to Ertapenem - u/a wbc 10-15, RBC TNCT, nit neg, leuk +3 - Blood Cultures 02/05/18 - NGTD Leukocytosis - Resolved - Monitor as patient hemodynamically stable - hx of recent probable ESBL P. mirabailis UTI s/p Rx 11/2017 -. hx of recent hematuria, penile extensive hemorrhage with surrounding cellulitis 09/2016, s/p Rx -s/p suprapubic cystostomy 09/28; re inserted 10/01 after patient pull it off -. History of coag-negative Staph bacteremia in July 2007, AMY was negative for endocarditis (due to bacteremia due to the PICC line infection). -. History of sepsis. -. History of CKD. -. History of renal and pancreas transplant about 10 years ago. -hx of prior HD -. History of enterococcal bacteremia in May 2017. -. History of suicidal attempt. -. History rof MS/CAD. -. Anemia. -. History of colon polyps. -. Hypertension. - Diabetes. Plan: -Continue empiric IV Ertapenem #5/10 for Providencia in urine - End date 02/15/18 -12/02 SP Ertapenem #5 -11/29 SP IV Vancomycin #4, -11/28 SP Aztreonam #3 -10/06 SP Doxycycline and Levaquin #4 -10/02 SP IV Vanco/Aztreonam #6 -09/10/17 SP Daptomycin #34 -Monitor leukocytosis -Monitor CBC/CMP, temperatures -aspiration precautions Thank you for this consultation. Will continue to follow along with you. Subjective Allergies: Coded Allergies: CEFEPIME (Verified Allergy, Intermediate, Rash, 01/23/13) Subjective Discharged this afternoon Discussed discharge and outpatient meds with Objective Vital Signs Last 24 Hour Vital Signs Date Time Temp Pulse Resp B/P (MAP) Pulse Ox O2 Delivery O2 Flow Rate FiO2 02/10/18 16:00 98.7 67 18 133/61 (85) 97 98.7 02/10/18 12:00 98.2 75 18 140/78 (98) 97 98.2 02/10/18 09:00 Room Air 02/10/18 08:39 83 155/81 02/10/18 08:36 69 16 Room Air 21 02/10/18 08:00 99.0 83 18 155/81 (105) 95 99.0 02/10/18 04:00 97.9 72 18 121/68 (85) 98 97.9 02/10/18 00:00 98.1 66 18 120/60 (80) 97 98.1 02/09/18 21:00 Room Air 02/09/18 20:51 72 104/62 02/09/18 20:39 72 16 Room Air 21 02/09/18 20:03 99.0 76 17 104/62 (76) 96 99.0 Height (Feet): 5 Height (Inches): 8.00 Weight (Pounds): 161 Objective Discharged this afternoon Laboratory Tests Test 02/10/18 05:50 White Blood Count 8.3 K/UL (4.8-10.8) Red Blood Count 3.01 M/UL (4.70-6.10) L Hemoglobin 9.0 G/DL (14.2-18.0) L Hematocrit 27.5 % (42.0-52.0) L Mean Corpuscular Volume 91 FL (80-99) Mean Corpuscular Hemoglobin 29.9 PG (27.0-31.0) Mean Corpuscular Hemoglobin Concent 32.7 G/DL (32.0-36.0) Red Cell Distribution Width 16.1 % (11.6-14.8) H Platelet Count 303 K/UL (150-450) Mean Platelet Volume 6.5 FL (6.5-10.1) Neutrophils (%) (Auto) 78.5 % (45.0-75.0) H Lymphocytes (%) (Auto) 11.0 % (20.0-45.0) L Monocytes (%) (Auto) 8.3 % (1.0-10.0) Eosinophils (%) (Auto) 1.7 % (0.0-3.0) Basophils (%) (Auto) 0.6 % (0.0-2.0) Sodium Level 142 MMOL/L (136-145) Potassium Level 3.2 MMOL/L (3.5-5.1) L Chloride Level 109 MMOL/L (98-107) H Carbon Dioxide Level 13 MMOL/L (21-32) L Anion Gap 20 mmol/L (5-15) H Blood Urea Nitrogen 63 mg/dL (7-18) H Creatinine 4.8 MG/DL (0.55-1.30) H Estimat Glomerular Filtration Rate 12.3 mL/min (>60) Glucose Level 217 MG/DL (74-106) #H Calcium Level 8.1 MG/DL (8.5-10.1) L Phosphorus Level 4.8 MG/DL (2.5-4.9) Magnesium Level 1.7 MG/DL (1.8-2.4) L Total Bilirubin 0.5 MG/DL (0.2-1.0) Direct Bilirubin 0.1 MG/DL (0.0-0.3) Aspartate Amino Transf (AST/SGOT) 13 U/L (15-37) L Alanine Aminotransferase (ALT/SGPT) 10 U/L (12-78) L Alkaline Phosphatase 66 U/L (46-116) Total Protein 6.4 G/DL (6.4-8.2) Albumin 2.8 G/DL (3.4-5.0) L Current Medications Medications (Trade) Dose Ordered Sig/Dunia Route PRN Reason Start Time Stop Time Status Last Admin Dose Admin Acetaminophen (Tylenol) 650 mg Q4H PRN ORAL fever (temp>100.5F) 02/05/18 13:30 03/07/18 13:29 Bupropion HCl (Wellbutrin XL) 150 mg DAILY ORAL 02/08/18 09:00 03/10/18 08:59 02/10/18 08:38 Chlorhexidine Gluconate (Eloisa-Hex 2%) 1 applic DAILY@1999 TOPIC 02/09/18 20:00 03/11/18 19:59 02/09/18 20:49 Dextrose (Dextrose 50%) 25 ml STAT PRN IV Hypoglycemia 02/05/18 14:15 03/07/18 14:14 Dextrose (Dextrose 50%) 50 ml STAT PRN IV Hypoglycemia 02/05/18 13:30 03/07/18 13:29 02/09/18 06:51 Duloxetine HCl (Cymbalta) 30 mg DAILY ORAL 02/06/18 09:00 03/08/18 08:59 02/10/18 08:38 Epoetin Jose (Procrit (for non ESRD use)) 10,000 units WED-WED-WED SUBQ 02/09/18 21:00 03/11/18 20:59 02/09/18 21:29 Ertapenem 0.5 gm/ Sodium Chloride 55 ml @ 110 mls/hr Q24H IVPB 02/06/18 15:00 02/15/18 14:59 02/10/18 15:32 Heparin Sodium/ Sodium Chloride (Heparin 2000 units/Ns 1000ml premix) 2,000 unit ONCE PRN INJ FOR PICC LINE PLACEMENT 02/09/18 13:15 02/11/18 13:14 Hydralazine HCl (Apresoline) 25 mg Q4H PRN ORAL bp over 160 syst 02/08/18 09:30 03/10/18 09:29 Insulin Aspart (NovoLOG) BEFORE MEALS AND HS SUBQ 02/05/18 16:30 03/07/18 16:29 02/10/18 16:48 Insulin Aspart (NovoLOG) 4 units NOVOTIAC SUBQ 02/09/18 11:50 03/07/18 16:49 02/10/18 16:47 Insulin Detemir (Levemir) 9 units BID SUBQ 02/09/18 09:00 03/07/18 17:59 02/10/18 09:57 Lidocaine HCl (Xylocaine 1% 30ml) 30 ml ONCE PRN INJ PICC LINE PLACEMENT 02/09/18 13:15 02/11/18 13:14 Magnesium Sulfate 100 ml @ 100 mls/hr Q1H IVPB 02/10/18 16:30 02/10/18 18:29 Metoprolol Succinate (Toprol XL) 50 mg Q12HR ORAL 02/05/18 21:00 03/07/18 20:59 02/10/18 08:39 Morphine Sulfate (Morphine Sulfate) 2 mg Q4H PRN IVP Moderate Pain (Pain Scale 4-6) 02/05/18 13:30 02/12/18 13:29 Nitroglycerin (Ntg) 0.4 mg Q5M PRN SL Prn Chest Pain 02/05/18 13:30 03/07/18 13:29 Ondansetron HCl (Zofran) 4 mg Q6H PRN ORAL Nausea & Vomiting 02/05/18 13:30 03/07/18 13:29 Polyethylene Glycol (Miralax) 17 gm DAILYPRN PRN ORAL Constipation 02/05/18 13:30 03/07/18 13:29 Sevelamer Carbonate (Renvela) 800 mg THREE TIMES A DAY ORAL 02/05/18 18:00 03/07/18 17:59 02/10/18 12:33 Sodium Chloride 1,000 ml @ 75 mls/hr [id number] IV 02/07/18 15:15 03/09/18 15:14 02/09/18 06:44 Sodium Citrate (Bicitra) 45 ml EVERY 6 HOURS ORAL 02/08/18 12:00 03/09/18 17:59 02/10/18 12:33 Temazepam (Restoril) 15 mg HSPRN PRN ORAL Insomnia 02/05/18 13:30 02/12/18 13:29 William Caputo M.D. Feb 10, 2018 17:31
[2018-02-10] MEDS ORDERED: NS 275ml ONE (18:43)
[2018-02-10] MEDS ORDERED: 1/2 NS 1000ml IV ONE (18:43)
[2018-02-10] MEDS ORDERED: Sterile Water Irrig 1000ml IRRIG ONE (18:43)
[2018-02-10] MEDS ORDERED: Tubing Blood Filter IV ONE (18:43)
--- NOTE | 2018-02-10 22:08 | General Progress Note ---
Assessment/Plan Assessment/Plan mdd anxiety taper down Cymbalta provided ro/st start Wellbutrin Subjective Date patient seen: Feb 10, 2018 Neurologic/Psychiatric: Reports: anxiety, depressed, emotional problems Allergies: Coded Allergies: CEFEPIME (Verified Allergy, Intermediate, Rash, 01/23/13) Objective Last 24 Hour Vital Signs Date Time Temp Pulse Resp B/P (MAP) Pulse Ox O2 Delivery O2 Flow Rate FiO2 02/10/18 16:00 98.7 67 18 133/61 (85) 97 98.7 02/10/18 12:00 98.2 75 18 140/78 (98) 97 98.2 02/10/18 09:00 Room Air 02/10/18 08:39 83 155/81 02/10/18 08:36 69 16 Room Air 21 02/10/18 08:00 99.0 83 18 155/81 (105) 95 99.0 02/10/18 04:00 97.9 72 18 121/68 (85) 98 97.9 02/10/18 00:00 98.1 66 18 120/60 (80) 97 98.1 Intake and Output 02/09/18 02/10/18 19:00 07:00 Intake Total 755 ml 120 ml Output Total 950 ml 1200 ml Balance -195 ml -1080 ml Intake Oral 120 ml 120 ml IV Total 635 ml Output Urine Total 950 ml 1200 ml # Bowel Movements 2 1 Laboratory Tests 02/10/18 05:50: White Blood Count 8.3, Red Blood Count 3.01L, Hemoglobin 9.0L, Hematocrit 27.5L , Mean Corpuscular Volume 91, Mean Corpuscular Hemoglobin 29.9, Mean Corpuscular Hemoglobin Concent 32.7, Red Cell Distribution Width 16.1H, Platelet Count 303, Mean Platelet Volume 6.5, Neutrophils (%) (Auto) 78.5H, Lymphocytes (%) (Auto) 11.0L, Monocytes (%) (Auto) 8.3, Eosinophils (%) (Auto) 1.7, Basophils (%) (Auto) 0.6, Sodium Level 142, Potassium Level 3.2L, Chloride Level 109H, Carbon Dioxide Level 13L, Anion Gap 20H, Blood Urea Nitrogen 63H, Creatinine 4.8H, Estimat Glomerular Filtration Rate 12.3, Glucose Level 217#H, Calcium Level 8.1L, Phosphorus Level 4.8, Magnesium Level 1.7L, Total Bilirubin 0.5, Direct Bilirubin 0.1, Aspartate Amino Transf (AST/SGOT) 13L, Alanine Aminotransferase (ALT/SGPT) 10L, Alkaline Phosphatase 66, Total Protein 6.4, Albumin 2.8L Height (Feet): 5 Height (Inches): 8.00 Weight (Pounds): 161 Fatmata Lu MD Feb 10, 2018 22:08
--- NOTE | 2018-02-11 12:48 | Discharge Summary ---
Discharge Summary Discharge Summary _ DATE OF ADMISSION: 02/05/2018 DATE OF DISCHARGE: 02/10/2018 ATTENDING: Dr. Christopher Rosado CONSULTANTS: Dr. Esdras Jacques [facility] COURSE: Patient is a 62-year-old white male, who presented to [place] for complaints of blood in his urine. He is a resident of [facility]. He was noted to have hematuria from his suprapubic catheter. He was then transferred to [facility]. He has medical history significant for chronic renal disease stage IV, diabetes mellitus type 2, BPH, diabetes nephropathy, coronary artery disease status post stenting, hyperparathyroidism and left eye blindness. He is status post renal and pancreatic transplant. He is DO NOT RESUSCITATE. On evaluation at ED, vital signs were stable. Blood work showed leukocytosis, WBC 15, he was anemic with hemoglobin of 9.3 and hematocrit 27.9. Creatinine was elevated to 5.7, BUN 76. Urinalysis showed 10-15 WBC, too many to count RBC , 3+ leukocyte esterase, 5+ occult blood, 1+ ketone, 4+ protein and 3+ glucose. Abdominal and pelvic CT showed bladder wall thickening. He was then admitted for evaluation of hematuria with urinary tract infection and renal disease. He was seen by infectious disease specialist. He was started empirically on IV ertapenem. He was seen by urologist. 14 Moroc[place] suprapubic catheter was hand irrigated. Urine was clean without any active bleeding. 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 Blood glucose was monitored. He was started on Levemir twice a day and NovoLog 5 units before meals 3 times a day with sliding scale. Blood sugar was labile with episodes of hyperglycemia and hypoglycemia. Insulins dosage were adjusted. Renal function was monitored. Diet was changed to renal. He has anemia of chronic kidney disease, he was given Procrit. He has history of depression and anxiety. He was treated with Cymbalta. Cymbalta was tapered down and was started on Wellbutrin. He had an episode of drop in hemoglobin, he was given 1 unit packed RBC. Anemia workup showed no iron deficiency or hemolysis. He was continued on Procrit. Urine culture with growth of Providencia, blood culture did not isolate any growth. Suprapubic catheter was changed on 02/08/2018. Advised to continue antibiotic therapy until 02/15/2018. Patient was discharged back to SNF. FINAL DIAGNOSES: Urinary tract infection with Providencia in chronic indwelling suprapubic catheter Diabetes mellitus out of control Diabetes mellitus with diabetic nephropathy Acute renal failure on chronic kidney disease Chronic kidney disease Coronary artery disease Major depression Diabetic ketoacidosis Metabolic acidosis and hyperglycemia Anxiety disorder Urinary retention BPH Neurogenic bladder Renal cyst Acute encephalopathy Anemia and chronic disease Anemia of kidney disease Drop in hemoglobin requiring blood transfusion Pulmonary hypertension Diabetic neuropathy metabolic acidosis due to diabetes and uremia Elevated lipase Status post renal and pancreatic transplant Coronary artery disease with history of non-ST elevated [place] COPD/asthma DISPOSITION: A shunt was discharged back to [facility]. DISCHARGE MEDICATIONS: Refer to Discharge Medication List. I have been assigned to dictate discharge summary on this account, and I was not involved in the patient's management. Lyn Diaz NP Feb 11, 2018 12:48
--- NOTE | 2018-02-12 14:16 | Diagnostic Imaging Report ---
APPROVED REPORT CPT Code: 84281 Present Symptoms Comments: Pre op Upper arm line placement LEFT UPPER EXTREMITY: Venous imaging reveals patency of the internal jugular, subclavian, axillary and brachial veins. The cephalic and basilic veins are also patent. Doppler indicates normal spontaneous flow within these venous segments. INCIDENTAL FINDINGS: A nonfunctioning arterio-venous graft noted at forearm level.
== END 2018-02-10 18:44 | DRG 689 ==
LOC: EDBD 11:03 → EDBEDREQ 11:38 → EMR 12:19 → 4E 12:20 → EDBEDREQ 12:39 → 4E 14:26
PROC: 3E03328 Introduction of Oxazolidinones into Peripheral Vein, Percutaneous Approach (ICD-10-PCS; principal; 2018-02-05)
PROC: 30233N1 Transfusion of Nonautologous Red Blood Cells into Peripheral Vein, Percutaneous Approach (ICD-10-PCS; 2018-02-05)
DX: N39.0 Urinary tract infection, site not specified (principal); G93.40 Encephalopathy, unspecified; E11.10 Type 2 diabetes mellitus with ketoacidosis without coma; N18.4 Chronic kidney disease, stage 4 (severe); Z94.0 Kidney transplant status; Z94.83 Pancreas transplant status; N17.9 Acute kidney failure, unspecified; D62 Acute posthemorrhagic anemia; N25.81 Secondary hyperparathyroidism of renal origin; R31.9 Hematuria, unspecified; E11.319 Type 2 diabetes mellitus with unspecified diabetic retinopathy without macular edema; Z66 Do not resuscitate; E11.22 Type 2 diabetes mellitus with diabetic chronic kidney disease; I25.10 Atherosclerotic heart disease of native coronary artery without angina pectoris; Z95.5 Presence of coronary angioplasty implant and graft; Z79.4 Long term (current) use of insulin; Z88.8 Allergy status to other drugs, medicaments and biological substances; N40.0 Benign prostatic hyperplasia without lower urinary tract symptoms; E11.65 Type 2 diabetes mellitus with hyperglycemia; F32.9 Major depressive disorder, single episode, unspecified; F41.9 Anxiety disorder, unspecified; N31.9 Neuromuscular dysfunction of bladder, unspecified; N28.1 Cyst of kidney, acquired; I27.20 Pulmonary hypertension, unspecified; E11.40 Type 2 diabetes mellitus with diabetic neuropathy, unspecified; I25.2 Old myocardial infarction; J44.9 Chronic obstructive pulmonary disease, unspecified; R33.9 Retention of urine, unspecified; I12.9 Hypertensive chronic kidney disease with stage 1 through stage 4 chronic kidney disease, or unspecified chronic kidney disease; Z90.01 Acquired absence of eye; E55.9 Vitamin D deficiency, unspecified; F99 Mental disorder, not otherwise specified; Z91.19 Patient's noncompliance with other medical treatment and regimen; Z91.14 Patient's other noncompliance with medication regimen; D63.1 Anemia in chronic kidney disease; Z43.5 Encounter for attention to cystostomy
CPT/HCPCS: 36415; 71045; 74176; 80048; 80053; 80061; 80076; 81003; 82150; 82550; 82607; 82728; 82746; 82947; 82962; 82977; 83036; 83540; 83550; 83605; 83690; 83735; 83880; 84100; 84443; 84484; 84550; 85007; 85025; 85610; 85730; 86140; 86850; 86900; 86901; 86920; 87040; 87081; 87086; 87181; 93971; 94640; 94664; J1815; J7620; J8499; S5561

== ENCOUNTER 2018-02-28 13:45 | Inpatient (IN) | payer MEDICARE, MEDICAID ==
[~2018-02-28] VITALS: Ht 172.7 cm; Wt 69.6 kg
[~2018-02-28 13:45] MED LIST changes: +INVANZ1 G1 IVPB; +ZOFRAN4 M3 ORAL
[2018-02-28 14:07] VITALS: BP 112/74
--- NOTE | 2018-02-28 14:28 | Emergency Room Report ---
History of Present Illness General Chief Complaint: General Complaint Source: Patient, Medical Record Present Illness HPI Patient is a 62-year-old male who presented increased failure to thrive. Patient reportedly had not been taking any the food or fluids the patient prior history of diabetes as well as renal disease. Patient had prior transplant. Patient was noted to have prior history of dementia. The patient was noted to have some baseline confusion and has difficulty with recall. History is limited by poor historian. Patient denies any complaints of pain at this time. Allergies: Coded Allergies: CEFEPIME (Verified Allergy, Intermediate, Rash, 01/23/13) Patient History Past Medical History: see triage record Reviewed Nursing Documentation: PMH: Agreed; PSxH: Agreed Nursing Documentation-PMH Hx Cardiac Problems: Yes - CAD with hx NSTEMI x3; Hx Hypertension: Yes Hx Pacemaker: No Hx Asthma: Yes Hx Diabetes: Yes Hx Cancer: Yes - kidney and panreas ca Hx Gastrointestinal Problems: Yes - Gastritis, Hx Dialysis: No - BPH, CKD, Anemia, renal osteodystrophy second hyperparathyroidism w/ vit D Hx Neurological Problems: Yes Hx Cerebrovascular Accident: Yes Hx Transient Ischemic Attacks: No Hx Dementia: No Hx Alzheimer's Disease: No Hx Parkinson's Disease: No Hx Meningitis: No Hx Encephalitis: Yes - 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 ATTEMPT Hx Seizures: No Hx Epilepsy: No Hx Multiple Sclerosis: No Hx Cerebral Palsy: No Hx Amyotrophic Lat Sclerosis: No Hx Guillian-[place] Syndrome: No Hx Paralysis: No Hx Peripheral Neuropathy: No Hx Spinal Cord Injury: No Hx Head Trauma: No Hx Traumatic Brain Injury: No Hx Memory Loss: No Hx Concentration Difficulty: No Hx Speech Problem: No Hx Tremors: No Hx Vertigo: No Hx Dizziness: Yes Hx Syncope: No Hx Headaches: No Hx Aphasia: No Hx Dysphasia: No Hx Numbness: No Hx Weakness: No Hx Fatigue: No Hx Neurologic Surgery: No Hx Brain Shunt: No Review of Systems All Other Systems: limited - by mental staat Physical Exam Vital Signs Date Time Temp Pulse Resp B/P (MAP) Pulse Ox O2 Delivery O2 Flow Rate FiO2 02/28/18 13:53 99.2 88 18 123/78 98 Room Air 99.1 Sp02 EP Interpretation: reviewed, normal General Appearance: normal inspection, well appearing, no apparent distress, alert, other - gcs 14, Chronically Ill Head: atraumatic ENT: normal ENT inspection, hearing grossly normal, normal voice Neck: normal inspection, full range of motion, supple, no bony tend Respiratory: normal inspection, lungs clear, normal breath sounds, no respiratory distress, no retraction, no wheezing Cardiovascular #1: regular rate, rhythm, no edema Gastrointestinal: normal inspection, normal bowel sounds, non tender, soft, no guarding, no hernia Genitourinary: no CVA tenderness Musculoskeletal: normal inspection, back normal, normal range of motion Neurologic: normal inspection, alert, responsive, speech normal, other - poor recall, confusion Psychiatric: normal inspection, judgement/insight normal, mood/affect normal Skin: normal inspection, normal color, no rash Medical Decision Making Diagnostic Impression: Primary Impression: Failure to thrive Additional Impressions: Dehydration Renal failure Acidosis, metabolic ER Course Patient presented for generalized weakness. Differential diagnosis included was not limited to anemia, urinary tract infection, electrolyte abnormality, hypothyroidism, myocardial infarction, myasthenia gravis, dehydration, among others. Because of complexity of patient's case laboratory testing and imaging studies were ordered.The patient presented to be at his baseline mental status.Laboratory studies are notable for some evidence of metabolic acidosis. The patient noted have elevated white blood count. Dr. Rosado was contacted for inpatient management. Labs Test 02/28/18 15:36 White Blood Count 16.1 K/UL (4.8-10.8) Red Blood Count 3.45 M/UL (4.70-6.10) Hemoglobin 10.8 G/DL (14.2-18.0) Hematocrit 33.1 % (42.0-52.0) Mean Corpuscular Volume 96 FL (80-99) Mean Corpuscular Hemoglobin 31.2 PG (27.0-31.0) Mean Corpuscular Hemoglobin Concent 32.6 G/DL (32.0-36.0) Red Cell Distribution Width 16.8 % (11.6-14.8) Platelet Count 353 K/UL (150-450) Mean Platelet Volume 6.3 FL (6.5-10.1) Neutrophils (%) (Auto) % (45.0-75.0) Lymphocytes (%) (Auto) % (20.0-45.0) Monocytes (%) (Auto) % (1.0-10.0) Eosinophils (%) (Auto) % (0.0-3.0) Basophils (%) (Auto) % (0.0-2.0) Differential Total Cells Counted 100 Neutrophils % (Manual) 85 % (45-75) Lymphocytes % (Manual) 7 % (20-45) Monocytes % (Manual) 5 % (1-10) Eosinophils % (Manual) 1 % (0-3) Basophils % (Manual) 0 % (0-2) Band Neutrophils 2 % (0-8) Platelet Estimate Adequate Platelet Morphology Normal Hypochromasia 1+ Anisocytosis 1+ Prothrombin Time 10.1 SEC (9.30-11.50) Prothromb Time International Ratio 1.0 (0.9-1.1) Activated Partial Thromboplast Time 36 SEC (23-33) Sodium Level 140 MMOL/L (136-145) Potassium Level 4.0 MMOL/L (3.5-5.1) Chloride Level 111 MMOL/L (98-107) Carbon Dioxide Level 8 MMOL/L (21-32) Anion Gap 21 mmol/L (5-15) Blood Urea Nitrogen 79 mg/dL (7-18) Creatinine 5.9 MG/DL (0.55-1.30) Estimat Glomerular Filtration Rate 9.7 mL/min (>60) Glucose Level 348 MG/DL (74-106) Lactic Acid Level 1.20 mmol/L (0.4-2.0) Calcium Level 8.3 MG/DL (8.5-10.1) Total Bilirubin 0.4 MG/DL (0.2-1.0) Aspartate Amino Transf (AST/SGOT) 8 U/L (15-37) Alanine Aminotransferase (ALT/SGPT) 10 U/L (12-78) Alkaline Phosphatase 74 U/L (46-116) Troponin I 0.005 ng/mL (0.000-0.056) Total Protein 6.8 G/DL (6.4-8.2) Albumin 2.6 G/DL (3.4-5.0) Globulin 4.2 g/dL Acetone Level Positive-small (NEGATIVE) EKG Diagnostic Results Rate: normal - 74 Rhythm: NSR ST Segments: no acute changes Last Vital Signs Date Time Temp Pulse Resp B/P (MAP) Pulse Ox O2 Delivery O2 Flow Rate FiO2 02/28/18 13:53 99.2 88 18 123/78 98 Room Air 99.1 Status: unchanged Disposition: ADMITTED INPATIENT Condition: Stable Gordy Breen MD Feb 28, 2018 14:28
[2018-02-28 15:55] LABS: HEMATOCRIT 33.1 % (42.0-52.0); HEMOGLOBIN 10.8 G/DL (14.2-18.0); MEAN CORPUSCULAR VOLUME 96 FL (80-99); PLATELET COUNT 353 K/UL (150-450); RED BLOOD COUNT 3.45 M/UL (4.70-6.10); RED CELL DISTRIBUTION WIDTH 16.8 % (11.6-14.8); WHITE BLOOD COUNT 16.1 K/UL (4.8-10.8)
[2018-02-28 15:58] LABS: ANION GAP 21 mmol/L (5-15); BLOOD UREA NITROGEN 79 mg/dL (7-18); CALCIUM 8.3 MG/DL (8.5-10.1); CHLORIDE 111 MMOL/L (98-107); CREATININE 5.9 MG/DL (0.55-1.30); SODIUM 140 MMOL/L (136-145)
[2018-02-28 16:03] LABS: CARBON DIOXIDE 8 MMOL/L (21-32)
[2018-02-28 16:04] LABS: ALANINE AMINOTRANSFERASE 10 U/L (12-78); ALBUMIN 2.6 G/DL (3.4-5.0); ASPARTATE AMINO TRANSFERASE 8 U/L (15-37); BILIRUBIN,TOTAL 0.4 MG/DL (0.2-1.0)
[2018-02-28 16:05] LABS: ALKALINE PHOSPHATASE 74 U/L (46-116)
[2018-02-28 16:13] VITALS: BP 102/68
[2018-02-28] MEDS ORDERED: Sodium Chloride 500ML 500 ML IV ONE (16:45)
[2018-02-28] MEDS ORDERED: Azithromycin 500 MG in D5W 275 ML IVPB ONE (16:45)
[2018-02-28 18:00] VITALS: BP 108/72
[2018-02-28] MEDS ORDERED: NOVOLOG100 UNIT/4 SQ (18:38)
[2018-02-28] MEDS ORDERED: HYDROCORTISO28.35 GM TP (18:38)
[2018-02-28] MEDS ORDERED: NEPHROVITE1 TAB ORAL (18:38)
--- NOTE | 2018-02-28 19:49 | History & Physical ---
History and Physical History & Physicial Dictated for Int Med-Dr Rosado no. [id number]. Jose Glasgow MD Feb 28, 2018 19:49
[2018-02-28 20:00] VITALS: BP 99/51
--- NOTE | 2018-02-28 21:00 | History and Physical Report ---
DATE OF ADMISSION: 02/28/2018 CHIEF COMPLAINT: The patient is a 62-year-old white male, who presents with chief complaint of failure to thrive. HISTORY OF PRESENT ILLNESS: The patient is a resident of [facility]. According to staff at [facility], the patient has decreased fluid intake. This has been noted over the past couple of days. The patient is now not eating much at all. The patient presented to [place] emergency room. The patient is admitted for failure to thrive. PAST MEDICAL HISTORY: Significant for 1. Chronic renal disease stage 4. 2. Diabetes type 2. 3. Benign prostatic hypertrophy. 4. Diabetic neuropathy. 5. History of coronary artery disease. 6. Hyperparathyroidism. 7. Left eye blindness. PAST SURGICAL HISTORY: Significant for 1. Renal transplant. 2. Pancreas transplant. 3. PTCA with coronary artery stent placement. CURRENT MEDICATIONS: 1. Amlodipine 5 mg one tablet p.o. daily. 2. Lipitor 10 mg p.o. at bedtime. 3. Imuran 50 mg p.o. daily. 4. Cymbalta 30 mg p.o. daily. 5. NovoLog sliding scale. 6. Levemir 12 units subcutaneously twice daily. 7. Metoprolol succinate 50 mg p.o. twice daily. 8. Renvela 800 mg p.o. 3 times daily. ALLERGIES: To cefepime. SOCIAL HISTORY: The patient is resident of [facility]. The patient denies tobacco or alcohol use. REVIEW OF SYSTEMS: Unable to assess secondary to the patient's mental status. PHYSICAL EXAMINATION: GENERAL: The patient is well-developed and well-nourished white male, who is in no apparent distress. VITAL SIGNS: Temperature 99.2 degrees, respirations 18, pulse 88, and blood pressure 123/78. HEENT: Eyes, pupils equal and responsive to light and accommodation. Extraocular movements are intact. NECK: Supple without lymphadenopathy. CHEST: Lungs are clear to auscultation bilaterally without wheezes or rales. CARDIOVASCULAR: Regular rate. S1 and S2 are normal without murmurs, rubs, or gallops. ABDOMEN: Soft, nontender, and nondistended. Positive bowel sounds. No evidence of hepatosplenomegaly. Currently, no rebound or guarding noted. EXTREMITIES: Negative for clubbing, cyanosis, or edema. RECTAL: Refused. GENITAL: Refused. NEUROLOGIC: Cranial nerves II through XII are grossly intact without focal deficits. Motor strength is 5/5 bilaterally. Deep tendon reflexes are 2+ plantar. LABORATORY AND DIAGNOSTIC STUDIES: WBC elevated at 16.1, hemoglobin 10.8, hematocrit 33.1, and platelets 353,000. Sodium 140, potassium 4.0, chloride 111, CO2 , BUN 79, creatinine 5.9, and glucose 348. ASSESSMENT: This is a 62-year-old white male 1. Anorexia. 2. Renal failure. 3. Leukocytosis. 4. Diabetes type 2. 5. Coronary artery disease. 6. Hypertension. 7. Hypercholesterolemia. 8. Renal/pancreas transplant. TREATMENT: 1. Anorexia, this may be secondary to renal failure. 2. Renal failure. The patient has a history of end-stage renal failure. A Nephrology consultation has been obtained with Dr. Chambers. We will follow recommendations of Nephrology. 3. Leukocytosis. The patient has been started empirically on azithromycin for possible pneumonia. 4. Diabetes type 2. Continue Levemir and NovoLog sliding scale as above. 5. Coronary artery disease. A Cardiology consultation is pending with Dr. Mendiola. 6. Hypertension. Continue amlodipine and metoprolol as above. 7. Hypercholesterolemia. Continue Lipitor as above. 8. Status post renal/pancreas transplant. Jose Glasgow M.D. DR: GEM JOB#: [id number] CC:
[2018-02-28] MEDS ORDERED: Miralax 17gm pkt ORAL PRN (21:45)
[2018-02-28] MEDS: Heparin 5000 units/ml inj SUBQ SCH (22:10)
[2018-02-28] MEDS: Levemir Flexpen SUBQ SCH (22:11)
[2018-03-01] VITALS: BP 120/58
[2018-03-01 04:00] VITALS: BP 103/48
[2018-03-01] MEDS: NovoLOG Insulin Flexpen SUBQ SCH ×7 (06:07→20:59)
[2018-03-01 06:39] LABS: EOSINOPHILS % (AUTO) 2.4 % (0.0-3.0); HEMATOCRIT 31.3 % (42.0-52.0); HEMOGLOBIN 9.8 G/DL (14.2-18.0); LYMPHOCYTES % (AUTO) 9.4 % (20.0-45.0); MEAN CORPUSCULAR VOLUME 97 FL (80-99); MONOCYTES % (AUTO) 6.2 % (1.0-10.0); NEUTROPHILS % (AUTO) 81.1 % (45.0-75.0); PLATELET COUNT 350 K/UL (150-450); RED BLOOD COUNT 3.23 M/UL (4.70-6.10); RED CELL DISTRIBUTION WIDTH 17.4 % (11.6-14.8); WHITE BLOOD COUNT 15.2 K/UL (4.8-10.8)
[2018-03-01 07:02] LABS: ALANINE AMINOTRANSFERASE 6 U/L (12-78); ALBUMIN 2.3 G/DL (3.4-5.0); ALBUMIN/GLOBULIN RATIO 0.5 (1.0-2.7); ALKALINE PHOSPHATASE 67 U/L (46-116); ANION GAP 21 mmol/L (5-15); ASPARTATE AMINO TRANSFERASE 10 U/L (15-37); BILIRUBIN,TOTAL 0.3 MG/DL (0.2-1.0); BLOOD UREA NITROGEN 75 mg/dL (7-18); CALCIUM 8.1 MG/DL (8.5-10.1); CHLORIDE 113 MMOL/L (98-107); CHOLESTEROL 78 MG/DL (< 200); CREATININE 5.6 MG/DL (0.55-1.30); HDL CHOLESTEROL 27 MG/DL (40-60); PHOSPHORUS 5.3 MG/DL (2.5-4.9); POTASSIUM 4.1 MMOL/L (3.5-5.1); SODIUM 141 MMOL/L (136-145); TRIGLYCERIDES 125 MG/DL (30-150)
[2018-03-01 07:04] LABS: CARBON DIOXIDE 7 MMOL/L (21-32)
[2018-03-01 07:35] LABS: GAMMA GLUTAMYL TRANSPEPTIDASE < 3 U/L (5-85)
[2018-03-01 08:00] VITALS: BP 119/52
[2018-03-01] MEDS ORDERED: DULoxetine 30mg cap ORAL SCH (09:00)
[2018-03-01] MEDS ORDERED: Renvela 800mg Pkt ORAL SCH (09:00)
[2018-03-01] MEDS ORDERED: azaTHIOprine 50 MG TAB ORAL SCH (09:00)
--- NOTE | 2018-03-01 09:24 | Consultation ---
Consult Note Consult Note asked to eval for renal failure- patient known to me from previous admissions Patient is a 62-year-old male who presented increased failure to thrive. Patient reportedly had not been taking any the food or fluids the patient prior history of diabetes as well as renal disease. Patient had prior transplant. Patient was noted to have prior history of dementia. The patient was noted to have some baseline confusion and has difficulty with recall. History is limited by poor historian. Patient denies any complaints of pain at this time. Allergies: CEFEPIME (Verified Allergy, Intermediate, Rash, 01/23/13) Hx Cardiac Problems: Yes - CAD with hx NSTEMI x3; Hx Hypertension: Yes Hx Asthma: Yes Hx Diabetes: Yes Hx Cancer: Yes - kidney and panreas ca Hx Gastrointestinal Problems: Yes - Gastritis, Hx Dialysis: No - BPH, CKD, Anemia, renal osteodystrophy second hyperparathyroidism w/ vit D Hx Neurological Problems: Yes Hx Cerebrovascular Accident: Yes Hx Encephalitis: Yes - 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 ATTEMPT patient encephalopathic and agitated when interviewed examined data reviewed Assessment/Plan Acute renal failure on chronic kidney disease Metabolic acidosis and HyperGlycemia Recurrent hematuria Probably UTI with a history of recurrent UTI Anemia due to acute blood loss( i.e. hematuria) and CKD Leukocytosis Suprapubic catheter Neurogenic bladder BPH Status post renal pancreatic transplant h/o Elevated lipase Diabetes mellitus type 2 with hx of DKA Hypertension COPD/asthma Coronary artery disease with history of NSTEMI major depressive disorder with history of suicidal attempt encephalopathy Plan: IV Fluids Bicitra PO Anemia [place] Gastric support BS control patient DNR monitor renal parameters avoid nephrotoxics dialysis ?? Luis Chambers MD Mar 01, 2018 09:24
[2018-03-01 09:59] LABS: FERRITIN 649 NG/ML (8-388)
[2018-03-01 10:13] LABS: % IRON SATURATION 45 % (15-50); IRON 44 ug/dL (50-175); TOTAL IRON BINDING CAPACITY 97 ug/dL (250-450)
[2018-03-01] MEDS: Metoprolol Succinate XL 50mg tab ORAL SCH ×2 (10:23→21:01)
[2018-03-01] MEDS: DULoxetine 30mg cap ORAL SCH (10:23)
[2018-03-01] MEDS: Renvela 800mg Pkt NG SCH ×3 (10:23→17:34)
[2018-03-01] MEDS: Heparin 5000 units/ml inj SUBQ SCH ×2 (10:25→20:59)
[2018-03-01] MEDS: Levemir Flexpen SUBQ SCH ×2 (10:25→21:00)
[2018-03-01] MEDS: Sodium Citrate 30ml ORAL SCH ×3 (11:54→23:54)
[2018-03-01 12:00] VITALS: BP 126/56
--- NOTE | 2018-03-01 12:47 | Consultation ---
History of Present Illness General Date patient seen: Mar 01, 2018 Chief Complaint: General Complaint Present Illness HPI 62-year-old male with hx of severe depression, dementia, DM, chronic renal insufficiency, failed renal transplant, presented from shelter increased with CC iof failure to thrive. Patient reportedly had not been taking any food or fluids. History is limited by poor historian. Patient denies any complaints of pain at this time. He was found to have hyperkalemia and severe anemia and admitted to telemetry for further evaluation. Pt is awake currently and doesn't want to talk to anybody. Allergies: Coded Allergies: CEFEPIME (Verified Allergy, Intermediate, Rash, 01/23/13) Medication History Scheduled Amlodipine Besylate (Norvasc), 5 MG ORAL DAILY, (Reported) Atorvastatin Calcium* (Lipitor*), 10 MG ORAL BEDTIME Azathioprine* (Imuran*), 50 MG PO DAILY, (Reported) Duloxetine Hcl* (Cymbalta*), 30 MG ORAL DAILY, (Reported) Insulin Aspart (Novolog Flexpen), 6 UNITS SUBQ NOVOTIAC Insulin Aspart (Novolog), 100 UNIT SQ TIAC and HS, (Reported) Insulin Detemir (Levemir Flexpen), 12 UNITS SUBQ BID Metoprolol Succinate* (Metoprolol Succinate*), 50 MG ORAL Q12HR, (Reported) Polyethylene Glycol* (Miralax*), 17 GM ORAL BEDTIME Sevelamer Carbonate* (Renvela*), 800 MG ORAL THREE TIMES A DAY, (Reported) Vitamin B Cmplx/Vit C/Folic AC (Nephro-Enedina Tablet), 1 TAB ORAL DAILY, (Reported ) Scheduled PRN Hydrocortisone (Hydrocortisone), 1 % TP BID PRN for Itching, (Reported) Ondansetron* (Zofran*), 4 MG ORAL Q6H PRN for Nausea & Vomiting, (Reported) Discontinued Medications Acetaminophen (Acetaminophen), 650 MG ORAL Q6H PRN for Prn Headache/Temp > 101, (Reported) Discontinued Reason: Pt stopped taking med Acetaminophen* (Tylenol Extra Strength*), 500 MG ORAL Q6H PRN for Mild Pain/ Temp > 100.5, (Reported) Discontinued Reason: Pt stopped taking med Epoetin Jose (Epogen), 10,000 UNIT SUBQ THREE TIMES A WEEK, (Reported) Discontinued Reason: MD discontinued med Ertapenem (Invanz), 1 GM IVPB DAILY Discontinued Reason: Therapy completed Lansoprazole* (Prevacid*), 30 MG ORAL DAILY, (Reported) Discontinued Reason: Therapy completed Nitroglycerin (Nitroglycerin), 0.4 MG SL for Prn Chest Pain, (Reported) Discontinued Reason: MD discontinued med Sodium Citrate (Sod Citrate-Citric Acid Soln), 30 ML ORAL EVERY 6 HOURS, ( Reported) Discontinued Reason: MD discontinued med Temazepam* (Restoril*), 15 MG ORAL BEDTIME PRN for Insomnia, (Reported) Discontinued Reason: Pt stopped taking med Warfarin Sod* (Coumadin*), 5 MG ORAL DAILY, (Reported) Discontinued Reason: Pt stopped taking med Patient History 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 Resuscitation status Do Not Resuscitate Advanced Directive on File Yes Past Medical/Surgical History Past Medical/Surgical History: (1) Renal transplant recipient (2) Anemia in chronic kidney disease (3) CAD (coronary artery disease) (4) HTN (hypertension) (5) Psychiatric disturbance (6) CKD (chronic kidney disease), stage III (7) DM (diabetes mellitus) (8) BPH (benign prostatic hypertrophy) (9) Nephropathy, diabetic (10) Hyperparathyroidism (11) Suprapubic catheter (12) Blind left eye Review of Systems All Other Systems: negative except mentioned in HPI Physical Exam General Appearance: cachetic Lines, tubes and drains: peripheral HEENT: normocephalic Neck: non-tender, normal alignment Respiratory/Chest: chest wall non-tender, lungs clear Cardiovascular/Chest: normal peripheral pulses, normal rate Abdomen: normal bowel sounds Extremities: normal range of motion Skin Exam: normal pigmentation Last 24 Hour Vital Signs Date Time Temp Pulse Resp B/P (MAP) Pulse Ox O2 Delivery O2 Flow Rate FiO2 03/01/18 10:23 80 119/52 03/01/18 08:00 97.2 80 20 119/52 (74) 100 97.2 03/01/18 04:00 97.5 65 20 103/48 (66) 97 97.5 03/01/18 03:36 63 03/01/18 00:04 65 03/01/18 00:00 97.9 70 18 120/58 (78) 97.9 02/28/18 21:51 Room Air 02/28/18 20:00 97.4 72 18 99/51 (67) 100 97.4 02/28/18 19:29 73 02/28/18 18:50 99.1 86 18 112/74 96 Room Air 99.1 02/28/18 18:00 99.1 86 18 108/72 100 Room Air 99.1 02/28/18 16:13 98.3 80 16 102/68 98 Room Air 98.3 02/28/18 14:07 99.1 86 18 112/74 96 Room Air 99.1 02/28/18 13:53 99.2 88 18 123/78 98 Room Air 99.1 Intake and Output 02/28/18 03/01/18 19:00 07:00 Output Total 200 ml 600 ml Balance -200 ml -600 ml Output Urine Total 200 ml 600 ml Laboratory Tests Test 02/28/18 15:36 03/01/18 05:40 White Blood Count 16.1 K/UL (4.8-10.8) H 15.2 K/UL (4.8-10.8) H Red Blood Count 3.45 M/UL (4.70-6.10) L 3.23 M/UL (4.70-6.10) L Hemoglobin 10.8 G/DL (14.2-18.0) L 9.8 G/DL (14.2-18.0) L Hematocrit 33.1 % (42.0-52.0) L 31.3 % (42.0-52.0) L Mean Corpuscular Volume 96 FL (80-99) 97 FL (80-99) Mean Corpuscular Hemoglobin 31.2 PG (27.0-31.0) H 30.3 PG (27.0-31.0) Mean Corpuscular Hemoglobin Concent 32.6 G/DL (32.0-36.0) 31.3 G/DL (32.0-36.0) L Red Cell Distribution Width 16.8 % (11.6-14.8) H 17.4 % (11.6-14.8) H Platelet Count 353 K/UL (150-450) 350 K/UL (150-450) Mean Platelet Volume 6.3 FL (6.5-10.1) L 6.8 FL (6.5-10.1) Neutrophils (%) (Auto) % (45.0-75.0) 81.1 % (45.0-75.0) H Lymphocytes (%) (Auto) % (20.0-45.0) 9.4 % (20.0-45.0) L Monocytes (%) (Auto) % (1.0-10.0) 6.2 % (1.0-10.0) Eosinophils (%) (Auto) % (0.0-3.0) 2.4 % (0.0-3.0) Basophils (%) (Auto) % (0.0-2.0) 1.0 % (0.0-2.0) Differential Total Cells Counted 100 Neutrophils % (Manual) 85 % (45-75) H Lymphocytes % (Manual) 7 % (20-45) L Monocytes % (Manual) 5 % (1-10) Eosinophils % (Manual) 1 % (0-3) Basophils % (Manual) 0 % (0-2) Band Neutrophils 2 % (0-8) Platelet Estimate Adequate Platelet Morphology Normal Hypochromasia 1+ Anisocytosis 1+ Prothrombin Time 10.1 SEC (9.30-11.50) Prothromb Time International Ratio 1.0 (0.9-1.1) Activated Partial Thromboplast Time 36 SEC (23-33) H Sodium Level 140 MMOL/L (136-145) 141 MMOL/L (136-145) Potassium Level 4.0 MMOL/L (3.5-5.1) 4.1 MMOL/L (3.5-5.1) Chloride Level 111 MMOL/L (98-107) H 113 MMOL/L (98-107) H Carbon Dioxide Level 8 MMOL/L (21-32) *L 7 MMOL/L (21-32) *L Anion Gap 21 mmol/L (5-15) H 21 mmol/L (5-15) H Blood Urea Nitrogen 79 mg/dL (7-18) H 75 mg/dL (7-18) H Creatinine 5.9 MG/DL (0.55-1.30) H 5.6 MG/DL (0.55-1.30) H Estimat Glomerular Filtration Rate 9.7 mL/min (>60) 10.3 mL/min (>60) Glucose Level 348 MG/DL (74-106) H 262 MG/DL (74-106) H Lactic Acid Level 1.20 mmol/L (0.4-2.0) Calcium Level 8.3 MG/DL (8.5-10.1) L 8.1 MG/DL (8.5-10.1) L Total Bilirubin 0.4 MG/DL (0.2-1.0) 0.3 MG/DL (0.2-1.0) Aspartate Amino Transf (AST/SGOT) 8 U/L (15-37) L 10 U/L (15-37) L Alanine Aminotransferase (ALT/SGPT) 10 U/L (12-78) L 6 U/L (12-78) L Alkaline Phosphatase 74 U/L (46-116) 67 U/L (46-116) Troponin I 0.005 ng/mL (0.000-0.056) 0.000 ng/mL (0.000-0.056) C-Reactive Protein, Quantitative 5.9 mg/dL (0.00-0.90) H Total Protein 6.8 G/DL (6.4-8.2) 6.5 G/DL (6.4-8.2) Albumin 2.6 G/DL (3.4-5.0) L 2.3 G/DL (3.4-5.0) L Globulin 4.2 g/dL 4.2 g/dL Acetone Level Positive-small (NEGATIVE) Hemoglobin A1c 5.6 % (4.3-6.0) Uric Acid 6.9 MG/DL (2.6-7.2) Phosphorus Level 5.3 MG/DL (2.5-4.9) H Magnesium Level 1.9 MG/DL (1.8-2.4) Iron Level 44 ug/dL (50-175) L Total Iron Binding Capacity 97 ug/dL (250-450) L Percent Iron Saturation 45 % (15-50) Unsaturated Iron Binding 53 ug/dL (112-346) L Ferritin 649 NG/ML (8-388) H Gamma Glutamyl Transpeptidase < 3 U/L (5-85) L Pro-B-Type Natriuretic Peptide 1908 pg/mL (0-125) H Albumin/Globulin Ratio 0.5 (1.0-2.7) L Triglycerides Level 125 MG/DL (30-150) Cholesterol Level 78 MG/DL (< 200) LDL Cholesterol 34 mg/dL (<100) HDL Cholesterol 27 MG/DL (40-60) L Cholesterol/HDL Ratio 2.9 (3.3-4.4) L Vitamin B12 Level 634 PG/ML (193-986) Folate 19.0 NG/ML (8.6-58.9) Height (Feet): 5 Height (Inches): 8.00 Weight (Pounds): 165 Medications Current Medications Medications (Trade) Dose Ordered Sig/Dunia Route PRN Reason Start Time Stop Time Status Last Admin Dose Admin Dextrose (Dextrose 50%) 25 ml STAT PRN IV Hypoglycemia 02/28/18 21:45 03/30/18 21:44 Dextrose (Dextrose 50%) 50 ml STAT PRN IV Hypoglycemia 02/28/18 21:45 03/30/18 21:44 Duloxetine HCl (Cymbalta) 30 mg DAILY ORAL 03/01/18 09:00 03/31/18 08:59 03/01/18 10:23 Heparin Sodium (Porcine) (Heparin 5000 units/ml) 5,000 units EVERY 12 HOURS SUBQ 02/28/18 21:00 03/30/18 20:59 03/01/18 10:25 Insulin Aspart (NovoLOG) BEFORE MEALS AND HS SUBQ 03/01/18 06:30 03/31/18 06:29 03/01/18 11:54 Insulin Aspart (NovoLOG) 6 units NOVOTIAC SUBQ 03/01/18 06:30 03/31/18 06:29 03/01/18 11:54 Insulin Detemir (Levemir) 12 units Q12HR SUBQ 02/28/18 21:45 03/30/18 21:44 03/01/18 10:25 Metoprolol Succinate (Toprol XL) 50 mg EVERY 12 HOURS ORAL 03/01/18 09:00 03/31/18 08:59 03/01/18 10:23 Ondansetron HCl (Zofran) 4 mg Q6H PRN ORAL Nausea & Vomiting 02/28/18 20:10 03/30/18 20:09 Polyethylene Glycol (Miralax) 17 gm DAILYPRN PRN ORAL Constipation 02/28/18 21:45 03/30/18 21:44 Sevelamer Carbonate (Renvela) 800 mg THREE TIMES A DAY NG 03/01/18 09:00 03/31/18 08:59 03/01/18 10:23 Sodium Chloride 1,000 ml @ 100 mls/hr Q10H IV 02/28/18 20:01 03/30/18 20:00 03/01/18 05:08 Sodium Citrate (Bicitra) 30 ml EVERY 6 HOURS ORAL 03/01/18 12:00 03/31/18 11:59 03/01/18 11:54 Assessment/Plan Problem List: (1) ATN (acute tubular necrosis) ICD Codes: N17.0 - Acute kidney failure with tubular necrosis SNOMED: 43977482 (2) Acute on chronic renal failure ICD Codes: N17.9 - Acute on chronic renal failure; N18.9 - Chronic kidney disease, unspecified SNOMED: 551942030 (3) Pulmonary HTN ICD Codes: I27.0 - Pulmonary HTN SNOMED: 85751854 (4) HTN (hypertension) ICD Codes: I10 - HTN (hypertension) SNOMED: 13288085 (5) Diabetes mellitus out of control ICD Codes: E11.65 - Type 2 diabetes mellitus with hyperglycemia SNOMED: 13198462, 401161973 (6) Psychiatric disturbance ICD Codes: F99 - Psychiatric disturbance SNOMED: 50872824 (7) Kidney transplant status ICD Codes: Z94.0 - Kidney transplant status SNOMED: 75722948, 891361957 (8) BPH (benign prostatic hypertrophy) ICD Codes: N40.0 - Enlarged prostate without lower urinary tract symptoms SNOMED: 952228872, 017289287 Assessment/Plan iv fluids renal evaluation pt needs HD but his POLS states that he doesn't want any HD sliding scale diabetic diet family meeting psych evaluation. Esdras Delgado MD Mar 01, 2018 12:46
--- NOTE | 2018-03-01 13:20 | Consultation ---
History of Present Illness General Date patient seen: Mar 01, 2018 Chief Complaint: General Complaint Present Illness HPI 62 y/o M with hx of Dm2, HLD, MDD with suicidal attempts in the past w/ resultant chronic encephalopathy, CAD/AK, BPH, anemia, asthma, colonic polyps, ESRD s/p renal and pancreas tx ~10 yrs ago, now CKD 4, ConS bacteremia/line infection, urinary retention s/p suprapubic catheter 09/2017 , recurrent hematuria, multiple hospital admissions presents to ED on 02/28 from assisted with FTT, poor PO intake. He was found to have hyperkalemia and severe anemia. Of note, patient last admitted on 02/05 with hematuria Also admitted on November 2017 w/ fever and treated for presumed ESBL UTI. 09/2017: hematuria, penile swelling and difficulty urinating Admitted July-early August 2017 due to psychiatric issues. He was found to have persistent ConS bacteremia which thought 2ry to PICC line infection which was remove but had persistent bacteremic despite removal. Underwent AMY with no obvious vegetation. Treated with 4 weeks course of Daptomycin from neg Bcx. Allergies: Coded Allergies: CEFEPIME (Verified Allergy, Intermediate, Rash, 03/01/18) Tolerates Carbapenem Medication History Scheduled Amlodipine Besylate (Norvasc), 5 MG ORAL DAILY, (Reported) Atorvastatin Calcium* (Lipitor*), 10 MG ORAL BEDTIME Azathioprine* (Imuran*), 50 MG PO DAILY, (Reported) Duloxetine Hcl* (Cymbalta*), 30 MG ORAL DAILY, (Reported) Insulin Aspart (Novolog Flexpen), 6 UNITS SUBQ NOVOTIAC Insulin Aspart (Novolog), 100 UNIT SQ TIAC and HS, (Reported) Insulin Detemir (Levemir Flexpen), 12 UNITS SUBQ BID Metoprolol Succinate* (Metoprolol Succinate*), 50 MG ORAL Q12HR, (Reported) Polyethylene Glycol* (Miralax*), 17 GM ORAL BEDTIME Sevelamer Carbonate* (Renvela*), 800 MG ORAL THREE TIMES A DAY, (Reported) Vitamin B Cmplx/Vit C/Folic AC (Nephro-Enedina Tablet), 1 TAB ORAL DAILY, (Reported ) Scheduled PRN Hydrocortisone (Hydrocortisone), 1 % TP BID PRN for Itching, (Reported) Ondansetron* (Zofran*), 4 MG ORAL Q6H PRN for Nausea & Vomiting, (Reported) Discontinued Medications Acetaminophen (Acetaminophen), 650 MG ORAL Q6H PRN for Prn Headache/Temp > 101, (Reported) Discontinued Reason: Pt stopped taking med Acetaminophen* (Tylenol Extra Strength*), 500 MG ORAL Q6H PRN for Mild Pain/ Temp > 100.5, (Reported) Discontinued Reason: Pt stopped taking med Epoetin Jose (Epogen), 10,000 UNIT SUBQ THREE TIMES A WEEK, (Reported) Discontinued Reason: MD discontinued med Ertapenem (Invanz), 1 GM IVPB DAILY Discontinued Reason: Therapy completed Lansoprazole* (Prevacid*), 30 MG ORAL DAILY, (Reported) Discontinued Reason: Therapy completed Nitroglycerin (Nitroglycerin), 0.4 MG SL for Prn Chest Pain, (Reported) Discontinued Reason: MD discontinued med Sodium Citrate (Sod Citrate-Citric Acid Soln), 30 ML ORAL EVERY 6 HOURS, ( Reported) Discontinued Reason: MD discontinued med Temazepam* (Restoril*), 15 MG ORAL BEDTIME PRN for Insomnia, (Reported) Discontinued Reason: Pt stopped taking med Warfarin Sod* (Coumadin*), 5 MG ORAL DAILY, (Reported) Discontinued Reason: Pt stopped taking med Patient History 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 The patient denies tobacco or alcohol use. Fhx: non contributory Review of Systems ROS Narrative unable to obtain Physical Exam Physical Exam Narrative General Appearance: cachetic Lines, tubes and drains: peripheral HEENT: normocephalic Neck: non-tender, normal alignment Respiratory/Chest: chest wall non-tender, lungs clear Cardiovascular/Chest: normal peripheral pulses, normal rate Abdomen: normal bowel sounds Extremities: normal range of motion Skin Exam: normal pigmentation Last 24 Hour Vital Signs Date Time Temp Pulse Resp B/P (MAP) Pulse Ox O2 Delivery O2 Flow Rate FiO2 03/01/18 10:23 80 119/52 03/01/18 08:00 97.2 80 20 119/52 (74) 100 97.2 03/01/18 04:00 97.5 65 20 103/48 (66) 97 97.5 03/01/18 03:36 63 03/01/18 00:04 65 03/01/18 00:00 97.9 70 18 120/58 (78) 97.9 02/28/18 21:51 Room Air 02/28/18 20:00 97.4 72 18 99/51 (67) 100 97.4 02/28/18 19:29 73 02/28/18 18:50 99.1 86 18 112/74 96 Room Air 99.1 02/28/18 18:00 99.1 86 18 108/72 100 Room Air 99.1 02/28/18 16:13 98.3 80 16 102/68 98 Room Air 98.3 02/28/18 14:07 99.1 86 18 112/74 96 Room Air 99.1 02/28/18 13:53 99.2 88 18 123/78 98 Room Air 99.1 Intake and Output 02/28/18 03/01/18 19:00 07:00 Output Total 200 ml 600 ml Balance -200 ml -600 ml Output Urine Total 200 ml 600 ml Laboratory Tests Test 02/28/18 15:36 03/01/18 05:40 White Blood Count 16.1 K/UL (4.8-10.8) H 15.2 K/UL (4.8-10.8) H Red Blood Count 3.45 M/UL (4.70-6.10) L 3.23 M/UL (4.70-6.10) L Hemoglobin 10.8 G/DL (14.2-18.0) L 9.8 G/DL (14.2-18.0) L Hematocrit 33.1 % (42.0-52.0) L 31.3 % (42.0-52.0) L Mean Corpuscular Volume 96 FL (80-99) 97 FL (80-99) Mean Corpuscular Hemoglobin 31.2 PG (27.0-31.0) H 30.3 PG (27.0-31.0) Mean Corpuscular Hemoglobin Concent 32.6 G/DL (32.0-36.0) 31.3 G/DL (32.0-36.0) L Red Cell Distribution Width 16.8 % (11.6-14.8) H 17.4 % (11.6-14.8) H Platelet Count 353 K/UL (150-450) 350 K/UL (150-450) Mean Platelet Volume 6.3 FL (6.5-10.1) L 6.8 FL (6.5-10.1) Neutrophils (%) (Auto) % (45.0-75.0) 81.1 % (45.0-75.0) H Lymphocytes (%) (Auto) % (20.0-45.0) 9.4 % (20.0-45.0) L Monocytes (%) (Auto) % (1.0-10.0) 6.2 % (1.0-10.0) Eosinophils (%) (Auto) % (0.0-3.0) 2.4 % (0.0-3.0) Basophils (%) (Auto) % (0.0-2.0) 1.0 % (0.0-2.0) Differential Total Cells Counted 100 Neutrophils % (Manual) 85 % (45-75) H Lymphocytes % (Manual) 7 % (20-45) L Monocytes % (Manual) 5 % (1-10) Eosinophils % (Manual) 1 % (0-3) Basophils % (Manual) 0 % (0-2) Band Neutrophils 2 % (0-8) Platelet Estimate Adequate Platelet Morphology Normal Hypochromasia 1+ Anisocytosis 1+ Prothrombin Time 10.1 SEC (9.30-11.50) Prothromb Time International Ratio 1.0 (0.9-1.1) Activated Partial Thromboplast Time 36 SEC (23-33) H Sodium Level 140 MMOL/L (136-145) 141 MMOL/L (136-145) Potassium Level 4.0 MMOL/L (3.5-5.1) 4.1 MMOL/L (3.5-5.1) Chloride Level 111 MMOL/L (98-107) H 113 MMOL/L (98-107) H Carbon Dioxide Level 8 MMOL/L (21-32) *L 7 MMOL/L (21-32) *L Anion Gap 21 mmol/L (5-15) H 21 mmol/L (5-15) H Blood Urea Nitrogen 79 mg/dL (7-18) H 75 mg/dL (7-18) H Creatinine 5.9 MG/DL (0.55-1.30) H 5.6 MG/DL (0.55-1.30) H Estimat Glomerular Filtration Rate 9.7 mL/min (>60) 10.3 mL/min (>60) Glucose Level 348 MG/DL (74-106) H 262 MG/DL (74-106) H Lactic Acid Level 1.20 mmol/L (0.4-2.0) Calcium Level 8.3 MG/DL (8.5-10.1) L 8.1 MG/DL (8.5-10.1) L Total Bilirubin 0.4 MG/DL (0.2-1.0) 0.3 MG/DL (0.2-1.0) Aspartate Amino Transf (AST/SGOT) 8 U/L (15-37) L 10 U/L (15-37) L Alanine Aminotransferase (ALT/SGPT) 10 U/L (12-78) L 6 U/L (12-78) L Alkaline Phosphatase 74 U/L (46-116) 67 U/L (46-116) Troponin I 0.005 ng/mL (0.000-0.056) 0.000 ng/mL (0.000-0.056) C-Reactive Protein, Quantitative 5.9 mg/dL (0.00-0.90) H Total Protein 6.8 G/DL (6.4-8.2) 6.5 G/DL (6.4-8.2) Albumin 2.6 G/DL (3.4-5.0) L 2.3 G/DL (3.4-5.0) L Globulin 4.2 g/dL 4.2 g/dL Acetone Level Positive-small (NEGATIVE) Hemoglobin A1c 5.6 % (4.3-6.0) Uric Acid 6.9 MG/DL (2.6-7.2) Phosphorus Level 5.3 MG/DL (2.5-4.9) H Magnesium Level 1.9 MG/DL (1.8-2.4) Iron Level 44 ug/dL (50-175) L Total Iron Binding Capacity 97 ug/dL (250-450) L Percent Iron Saturation 45 % (15-50) Unsaturated Iron Binding 53 ug/dL (112-346) L Ferritin 649 NG/ML (8-388) H Gamma Glutamyl Transpeptidase < 3 U/L (5-85) L Pro-B-Type Natriuretic Peptide 1908 pg/mL (0-125) H Albumin/Globulin Ratio 0.5 (1.0-2.7) L Triglycerides Level 125 MG/DL (30-150) Cholesterol Level 78 MG/DL (< 200) LDL Cholesterol 34 mg/dL (<100) HDL Cholesterol 27 MG/DL (40-60) L Cholesterol/HDL Ratio 2.9 (3.3-4.4) L Vitamin B12 Level 634 PG/ML (193-986) Folate 19.0 NG/ML (8.6-58.9) Height (Feet): 5 Height (Inches): 8.00 Weight (Pounds): 165 Medications Current Medications Medications (Trade) Dose Ordered Sig/Dunia Route PRN Reason Start Time Stop Time Status Last Admin Dose Admin Dextrose (Dextrose 50%) 25 ml STAT PRN IV Hypoglycemia 02/28/18 21:45 03/30/18 21:44 Dextrose (Dextrose 50%) 50 ml STAT PRN IV Hypoglycemia 02/28/18 21:45 03/30/18 21:44 Duloxetine HCl (Cymbalta) 30 mg DAILY ORAL 03/01/18 09:00 03/31/18 08:59 03/01/18 10:23 Heparin Sodium (Porcine) (Heparin 5000 units/ml) 5,000 units EVERY 12 HOURS SUBQ 02/28/18 21:00 03/30/18 20:59 03/01/18 10:25 Insulin Aspart (NovoLOG) BEFORE MEALS AND HS SUBQ 03/01/18 06:30 03/31/18 06:29 03/01/18 11:54 Insulin Aspart (NovoLOG) 6 units NOVOTIAC SUBQ 03/01/18 06:30 03/31/18 06:29 03/01/18 11:54 Insulin Detemir (Levemir) 12 units Q12HR SUBQ 02/28/18 21:45 03/30/18 21:44 03/01/18 10:25 Metoprolol Succinate (Toprol XL) 50 mg EVERY 12 HOURS ORAL 03/01/18 09:00 03/31/18 08:59 03/01/18 10:23 Ondansetron HCl (Zofran) 4 mg Q6H PRN ORAL Nausea & Vomiting 02/28/18 20:10 9/19/18 20:09 Polyethylene Glycol (Miralax) 17 gm BEDTIME ORAL 03/01/18 21:00 03/31/18 20:59 Polyethylene Glycol (Miralax) 17 gm DAILYPRN PRN ORAL Constipation 02/28/18 21:45 03/30/18 21:44 Sevelamer Carbonate (Renvela) 800 mg THREE TIMES A DAY NG 03/01/18 09:00 03/31/18 08:59 03/01/18 10:23 Sodium Chloride 1,000 ml @ 100 mls/hr Q10H IV 02/28/18 20:01 03/30/18 20:00 03/01/18 05:08 Sodium Citrate (Bicitra) 30 ml EVERY 6 HOURS ORAL 03/01/18 12:00 03/31/18 11:59 03/01/18 11:54 Assessment/Plan Assessment/Plan Abx: Azithromycin x1 02/28 Assessment: Leukocytosis- r/o UTI, PNA, bacteremia RIVKA on CKD ANion gap metabolic acidosis DKA (+acetones) FTT -Recent probable Providencia UTI s/p Rx (early february 2018) -Hx of recurrent hematuria - hx of probable ESBL P. mirabilis UTI s/p Rx 11/2017 -. hx of hematuria, penile extensive hemorrhage with surrounding cellulitis 2016, s/p Rx -s/p suprapubic cystostomy 09/28; re inserted 10/01 after patient pull it off -. History of coag-negative Staph bacteremia in July 2007, AMY was negative for endocarditis (due to bacteremia due to the PICC line infection). -. History of sepsis. -. History of CKD. -. History of renal and pancreas transplant about 10 years ago. -hx of prior HD -. History of enterococcal bacteremia in May 2017. -. History of suicidal attempt. -. History rof AK/CAD. -. Anemia. -. History of colon polyps. -. Hypertension. - Diabetes. Plan: -Start empiric Meropenem pending cultures -if fever, worsening WBC, will add IV Vancomycin -02/15 SP Ertapenem #10 -12/02 SP Ertapenem #5 -11/29 SP IV Vancomycin #4, -11/28 SP Aztreonam #3 -10/06 SP Doxycycline and Levaquin #4 -10/02 SP IV Vanco/Aztreonam #6 -3/08/29 SP Daptomycin #34 -CXR, u/a w/, Bcx x2 -f/u cx -Monitor CBC/CMP, temperatures -aspiration precautions Thank you for this consultation. Will continue to follow along with you. Discussed with Monique Sellers M.D. Mar 01, 2018 13:20
--- NOTE | 2018-03-01 14:53 | Diagnostic Imaging Report ---
Indication: Shortness of breath Technique: One view of the chest Comparison: 01/28/2018 Findings: Patient is rotated to the right. Lungs and pleural spaces remain clear. Old healed left rib fracture deformities are again demonstrated. Normal heart size Impression: No acute process
[2018-03-01] MEDS ORDERED: Meropenem 500 MG in NS 55 ML IVPB SCH (15:00)
[2018-03-01 16:00] VITALS: BP 100/55
--- NOTE | 2018-03-01 18:27 | Internal Med Progress Note ---
Subjective Date of Service: Mar 01, 2018 Physician Name MyahJose Attending Physician Christopher Rosado MD Current Medications Medications (Trade) Dose Ordered Sig/Dunia Route PRN Reason Start Time Stop Time Status Last Admin Dose Admin Dextrose (Dextrose 50%) 25 ml STAT PRN IV Hypoglycemia 02/28/18 21:45 03/30/18 21:44 Dextrose (Dextrose 50%) 50 ml STAT PRN IV Hypoglycemia 02/28/18 21:45 03/30/18 21:44 Duloxetine HCl (Cymbalta) 30 mg DAILY ORAL 03/01/18 09:00 03/31/18 08:59 03/01/18 10:23 Heparin Sodium (Porcine) (Heparin 5000 units/ml) 5,000 units EVERY 12 HOURS SUBQ 02/28/18 21:00 03/30/18 20:59 03/01/18 10:25 Insulin Aspart (NovoLOG) BEFORE MEALS AND HS SUBQ 03/01/18 06:30 03/31/18 06:29 03/01/18 11:54 Insulin Aspart (NovoLOG) 6 units NOVOTIAC SUBQ 03/01/18 06:30 03/31/18 06:29 03/01/18 11:54 Insulin Detemir (Levemir) 12 units Q12HR SUBQ 02/28/18 21:45 03/30/18 21:44 03/01/18 10:25 Meropenem 500 mg/ Sodium Chloride 55 ml @ 110 mls/hr Q24H IVPB 03/01/18 15:00 03/06/18 14:59 03/01/18 15:23 Metoprolol Succinate (Toprol XL) 50 mg EVERY 12 HOURS ORAL 03/01/18 09:00 03/31/18 08:59 03/01/18 10:23 Nystatin (Nystop Powder) 1 applic THREE TIMES A DAY TOPIC 03/02/18 09:00 04/01/18 08:59 Ondansetron HCl (Zofran) 4 mg Q6H PRN ORAL Nausea & Vomiting 02/28/18 20:10 03/30/18 20:09 Polyethylene Glycol (Miralax) 17 gm BEDTIME ORAL 03/01/18 21:00 03/31/18 20:59 Polyethylene Glycol (Miralax) 17 gm DAILYPRN PRN ORAL Constipation 02/28/18 21:45 03/30/18 21:44 Sevelamer Carbonate (Renvela) 800 mg THREE TIMES A DAY NG 03/01/18 09:00 03/31/18 08:59 03/01/18 17:34 Sodium Chloride 1,000 ml @ 100 mls/hr Q10H IV 02/28/18 20:01 03/30/18 20:00 03/01/18 15:22 Sodium Citrate (Bicitra) 30 ml EVERY 6 HOURS ORAL 03/01/18 12:00 03/31/18 11:59 03/01/18 17:34 Allergies: Coded Allergies: CEFEPIME (Verified Allergy, Intermediate, Rash, 03/01/18) Tolerates Carbapenem ROS Limited/Unobtainable: Yes Subjective 62 YO M admitted with failure to thrive. Now leukocytosis. Cover for Int Med- Dr Rosado Objective Last Vital Signs Date Time Temp Pulse Resp B/P (MAP) Pulse Ox O2 Delivery O2 Flow Rate FiO2 03/01/18 16:00 97.5 62 18 100/55 (70) 100 97.5 03/01/18 08:10 Room Air General Appearance: WD/WN, no apparent distress, alert EENT: PERRL/EOMI, normal ENT inspection Neck: non-tender, normal alignment, supple, normal inspection Cardiovascular: normal peripheral pulses, normal rate, regular rhythm, no gallop/murmur, no JVD Respiratory/Chest: chest wall non-tender, lungs clear, normal breath sounds, no respiratory distress, no accessory muscle use Abdomen: normal bowel sounds, non tender, soft, no organomegaly, no mass Extremities: normal range of motion Neurologic: transmitter chief II-XII grossly normal, no motor/sensory deficits Skin: normal pigmentation, warm/dry Laboratory Tests Test 03/01/18 05:40 White Blood Count 15.2 K/UL (4.8-10.8) H Red Blood Count 3.23 M/UL (4.70-6.10) L Hemoglobin 9.8 G/DL (14.2-18.0) L Hematocrit 31.3 % (42.0-52.0) L Mean Corpuscular Volume 97 FL (80-99) Mean Corpuscular Hemoglobin 30.3 PG (27.0-31.0) Mean Corpuscular Hemoglobin Concent 31.3 G/DL (32.0-36.0) L Red Cell Distribution Width 17.4 % (11.6-14.8) H Platelet Count 350 K/UL (150-450) Mean Platelet Volume 6.8 FL (6.5-10.1) Neutrophils (%) (Auto) 81.1 % (45.0-75.0) H Lymphocytes (%) (Auto) 9.4 % (20.0-45.0) L Monocytes (%) (Auto) 6.2 % (1.0-10.0) Eosinophils (%) (Auto) 2.4 % (0.0-3.0) Basophils (%) (Auto) 1.0 % (0.0-2.0) Sodium Level 141 MMOL/L (136-145) Potassium Level 4.1 MMOL/L (3.5-5.1) Chloride Level 113 MMOL/L (98-107) H Carbon Dioxide Level 7 MMOL/L (21-32) *L Anion Gap 21 mmol/L (5-15) H Blood Urea Nitrogen 75 mg/dL (7-18) H Creatinine 5.6 MG/DL (0.55-1.30) H Estimat Glomerular Filtration Rate 10.3 mL/min (>60) Glucose Level 262 MG/DL (74-106) H Hemoglobin A1c 5.6 % (4.3-6.0) Uric Acid 6.9 MG/DL (2.6-7.2) Calcium Level 8.1 MG/DL (8.5-10.1) L Phosphorus Level 5.3 MG/DL (2.5-4.9) H Magnesium Level 1.9 MG/DL (1.8-2.4) Iron Level 44 ug/dL (50-175) L Total Iron Binding Capacity 97 ug/dL (250-450) L Percent Iron Saturation 45 % (15-50) Unsaturated Iron Binding 53 ug/dL (112-346) L Ferritin 649 NG/ML (8-388) H Total Bilirubin 0.3 MG/DL (0.2-1.0) Gamma Glutamyl Transpeptidase < 3 U/L (5-85) L Aspartate Amino Transf (AST/SGOT) 10 U/L (15-37) L Alanine Aminotransferase (ALT/SGPT) 6 U/L (12-78) L Alkaline Phosphatase 67 U/L (46-116) Troponin I 0.000 ng/mL (0.000-0.056) Pro-B-Type Natriuretic Peptide 1908 pg/mL (0-125) H Total Protein 6.5 G/DL (6.4-8.2) Albumin 2.3 G/DL (3.4-5.0) L Globulin 4.2 g/dL Albumin/Globulin Ratio 0.5 (1.0-2.7) L Triglycerides Level 125 MG/DL (30-150) Cholesterol Level 78 MG/DL (< 200) LDL Cholesterol 34 mg/dL (<100) HDL Cholesterol 27 MG/DL (40-60) L Cholesterol/HDL Ratio 2.9 (3.3-4.4) L Vitamin B12 Level 634 PG/ML (193-986) Folate 19.0 NG/ML (8.6-58.9) Intake and Output 02/28/18 03/01/18 19:00 07:00 Output Total 200 ml 600 ml Balance -200 ml -600 ml Output Urine Total 200 ml 600 ml Assessment/Plan Problem List: (1) FTT (failure to thrive) in adult (2) Leukocytosis Assessment & Plan: ?source? Continue meropenem per ID-see note (3) CKD (chronic kidney disease), stage III (4) BPH (benign prostatic hypertrophy) (5) DM (diabetes mellitus) Assessment & Plan: Continue novolog and levemir insulin (6) HTN (hypertension) Assessment & Plan: continue toprol (7) Coronary heart disease Status: not improved Jose Glasgow MD Mar 01, 2018 18:27
--- NOTE | 2018-03-01 18:39 | Consultation ---
History of Present Illness General Date patient seen: Mar 01, 2018 Chief Complaint: General Complaint Present Illness HPI 62-year-old white male, who presents with chief complaint of failure to thrive. the pt is depressed and withdrawn not talking Allergies: Coded Allergies: CEFEPIME (Verified Allergy, Intermediate, Rash, 03/01/18) Tolerates Carbapenem Medication History Scheduled Amlodipine Besylate (Norvasc), 5 MG ORAL DAILY, (Reported) Atorvastatin Calcium* (Lipitor*), 10 MG ORAL BEDTIME Azathioprine* (Imuran*), 50 MG PO DAILY, (Reported) Duloxetine Hcl* (Cymbalta*), 30 MG ORAL DAILY, (Reported) Insulin Aspart (Novolog Flexpen), 6 UNITS SUBQ NOVOTIAC Insulin Aspart (Novolog), 100 UNIT SQ TIAC and HS, (Reported) Insulin Detemir (Levemir Flexpen), 12 UNITS SUBQ BID Metoprolol Succinate* (Metoprolol Succinate*), 50 MG ORAL Q12HR, (Reported) Polyethylene Glycol* (Miralax*), 17 GM ORAL BEDTIME Sevelamer Carbonate* (Renvela*), 800 MG ORAL THREE TIMES A DAY, (Reported) Vitamin B Cmplx/Vit C/Folic AC (Nephro-Enedina Tablet), 1 TAB ORAL DAILY, (Reported ) Scheduled PRN Hydrocortisone (Hydrocortisone), 1 % TP BID PRN for Itching, (Reported) Ondansetron* (Zofran*), 4 MG ORAL Q6H PRN for Nausea & Vomiting, (Reported) Discontinued Medications Acetaminophen (Acetaminophen), 650 MG ORAL Q6H PRN for Prn Headache/Temp > 101, (Reported) Discontinued Reason: Pt stopped taking med Acetaminophen* (Tylenol Extra Strength*), 500 MG ORAL Q6H PRN for Mild Pain/ Temp > 100.5, (Reported) Discontinued Reason: Pt stopped taking med Epoetin Jose (Epogen), 10,000 UNIT SUBQ THREE TIMES A WEEK, (Reported) Discontinued Reason: MD discontinued med Ertapenem (Invanz), 1 GM IVPB DAILY Discontinued Reason: Therapy completed Lansoprazole* (Prevacid*), 30 MG ORAL DAILY, (Reported) Discontinued Reason: Therapy completed Nitroglycerin (Nitroglycerin), 0.4 MG SL for Prn Chest Pain, (Reported) Discontinued Reason: MD discontinued med Sodium Citrate (Sod Citrate-Citric Acid Soln), 30 ML ORAL EVERY 6 HOURS, ( Reported) Discontinued Reason: MD discontinued med Temazepam* (Restoril*), 15 MG ORAL BEDTIME PRN for Insomnia, (Reported) Discontinued Reason: Pt stopped taking med Warfarin Sod* (Coumadin*), 5 MG ORAL DAILY, (Reported) Discontinued Reason: Pt stopped taking med Patient History History Provided By: Patient, Medical Record, PMD 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 Resuscitation status Do Not Resuscitate Advanced Directive on File Yes Past Medical/Surgical History Past Medical/Surgical History: (1) Hematuria (2) Anemia (3) DKA (diabetic ketoacidoses) (4) Uncontrolled diabetes mellitus (5) BPH (benign prostatic hyperplasia) (6) Vitamin D deficiency (7) Retinopathy, diabetic, left eye (8) Hematuria (9) UTI (lower urinary tract infection) (10) Depression, major (11) Non compliance with medical treatment (12) Encephalopathy acute (13) Acute hyperglycemia (14) Hematemesis (15) Hypokalemia (16) Renal osteodystrophy (17) Fever (18) Gastrointestinal hemorrhage (19) Gastrointestinal hemorrhage (20) Bacteremia (21) Coagulopathy (22) Gastritis (23) Gastritis (24) GI bleeding (25) GI hemorrhage (26) Hypercholesteremia (27) Hyponatremia (28) Hypoparathyroidism (29) Pancreatitis (30) Retention, urine (31) Urine retention (32) Iron deficiency anemia (33) Sepsis (34) ESRD (end stage renal disease) (35) UTI (urinary tract infection) (36) DVT (deep venous thrombosis) (37) Fall (38) Neurogenic bladder (39) Head trauma (40) Head trauma (41) Colon polyps (42) Scrotal edema (43) Abnormal laboratory test result (44) Renal mass, right (45) RIVKA (acute kidney injury) (46) Laceration of lip (47) Bladder outlet obstruction (48) Excessive anticoagulation (49) Elevated lipase (50) DVT of axillary vein, 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 (52) Hyperglycemia due to type 2 diabetes mellitus (53) urinary retention (54) Acute on chronic renal failure (55) Metabolic acidosis due to diabetes mellitus (56) Generalized weakness (57) Acidosis, metabolic (58) Failure to thrive (59) Renal failure (60) BPH (benign prostatic hypertrophy) (61) Nephropathy, diabetic (62) Hyperparathyroidism (63) ATN (acute tubular necrosis) (64) Suprapubic catheter (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 difficile colitis (82) Staphylococcus aureus pneumonia (83) Hypernatremia (84) DM (diabetes mellitus) (85) Anemia (86) GI bleeding (87) DM (diabetes mellitus) (88) Acute hyperglycemia (89) Anemia (90) Hyponatremia (91) CKD (chronic kidney disease), stage III (92) Renal insufficiency (93) Dehydration (94) Coronary heart disease (95) Psychiatric disturbance (96) Pulmonary HTN (97) Acute on chronic renal failure (98) CAD (coronary artery disease) (99) HTN (hypertension) (100) Anemia in chronic kidney disease (101) Anemia in chronic kidney disease (102) Iron deficiency anemia Review of Systems Psychiatric: Reports: prior hx, anxiety, depressed feelings Physical Exam General Appearance: no apparent distress, alert Neurologic: depressed affect Last 24 Hour Vital Signs Date Time Temp Pulse Resp B/P (MAP) Pulse Ox O2 Delivery O2 Flow Rate FiO2 03/01/18 16:21 68 03/01/18 16:00 97.5 62 18 100/55 (70) 100 97.5 03/01/18 12:00 97.5 79 20 126/56 (79) 99 97.5 03/01/18 11:26 78 03/01/18 10:23 80 119/52 03/01/18 08:10 Room Air 03/01/18 08:00 97.2 80 20 119/52 (74) 100 97.2 03/01/18 07:53 77 03/01/18 04:00 97.5 65 20 103/48 (66) 97 97.5 03/01/18 03:36 63 03/01/18 00:04 65 03/01/18 00:00 97.9 70 18 120/58 (78) 97.9 02/28/18 21:51 Room Air 02/28/18 20:00 97.4 72 18 99/51 (67) 100 97.4 02/28/18 19:29 73 02/28/18 18:50 99.1 86 18 112/74 96 Room Air 99.1 Intake and Output 02/28/18 03/01/18 19:00 07:00 Output Total 200 ml 600 ml Balance -200 ml -600 ml Output Urine Total 200 ml 600 ml Laboratory Tests Test 03/01/18 05:40 White Blood Count 15.2 K/UL (4.8-10.8) H Red Blood Count 3.23 M/UL (4.70-6.10) L Hemoglobin 9.8 G/DL (14.2-18.0) L Hematocrit 31.3 % (42.0-52.0) L Mean Corpuscular Volume 97 FL (80-99) Mean Corpuscular Hemoglobin 30.3 PG (27.0-31.0) Mean Corpuscular Hemoglobin Concent 31.3 G/DL (32.0-36.0) L Red Cell Distribution Width 17.4 % (11.6-14.8) H Platelet Count 350 K/UL (150-450) Mean Platelet Volume 6.8 FL (6.5-10.1) Neutrophils (%) (Auto) 81.1 % (45.0-75.0) H Lymphocytes (%) (Auto) 9.4 % (20.0-45.0) L Monocytes (%) (Auto) 6.2 % (1.0-10.0) Eosinophils (%) (Auto) 2.4 % (0.0-3.0) Basophils (%) (Auto) 1.0 % (0.0-2.0) Sodium Level 141 MMOL/L (136-145) Potassium Level 4.1 MMOL/L (3.5-5.1) Chloride Level 113 MMOL/L (98-107) H Carbon Dioxide Level 7 MMOL/L (21-32) *L Anion Gap 21 mmol/L (5-15) H Blood Urea Nitrogen 75 mg/dL (7-18) H Creatinine 5.6 MG/DL (0.55-1.30) H Estimat Glomerular Filtration Rate 10.3 mL/min (>60) Glucose Level 262 MG/DL (74-106) H Hemoglobin A1c 5.6 % (4.3-6.0) Uric Acid 6.9 MG/DL (2.6-7.2) Calcium Level 8.1 MG/DL (8.5-10.1) L Phosphorus Level 5.3 MG/DL (2.5-4.9) H Magnesium Level 1.9 MG/DL (1.8-2.4) Iron Level 44 ug/dL (50-175) L Total Iron Binding Capacity 97 ug/dL (250-450) L Percent Iron Saturation 45 % (15-50) Unsaturated Iron Binding 53 ug/dL (112-346) L Ferritin 649 NG/ML (8-388) H Total Bilirubin 0.3 MG/DL (0.2-1.0) Gamma Glutamyl Transpeptidase < 3 U/L (5-85) L Aspartate Amino Transf (AST/SGOT) 10 U/L (15-37) L Alanine Aminotransferase (ALT/SGPT) 6 U/L (12-78) L Alkaline Phosphatase 67 U/L (46-116) Troponin I 0.000 ng/mL (0.000-0.056) Pro-B-Type Natriuretic Peptide 1908 pg/mL (0-125) H Total Protein 6.5 G/DL (6.4-8.2) Albumin 2.3 G/DL (3.4-5.0) L Globulin 4.2 g/dL Albumin/Globulin Ratio 0.5 (1.0-2.7) L Triglycerides Level 125 MG/DL (30-150) Cholesterol Level 78 MG/DL (< 200) LDL Cholesterol 34 mg/dL (<100) HDL Cholesterol 27 MG/DL (40-60) L Cholesterol/HDL Ratio 2.9 (3.3-4.4) L Vitamin B12 Level 634 PG/ML (193-986) Folate 19.0 NG/ML (8.6-58.9) Height (Feet): 5 Height (Inches): 8.00 Weight (Pounds): 165 Medications Current Medications Medications (Trade) Dose Ordered Sig/Dunia Route PRN Reason Start Time Stop Time Status Last Admin Dose Admin Dextrose (Dextrose 50%) 25 ml STAT PRN IV Hypoglycemia 02/28/18 21:45 03/30/18 21:44 Dextrose (Dextrose 50%) 50 ml STAT PRN IV Hypoglycemia 02/28/18 21:45 03/30/18 21:44 Duloxetine HCl (Cymbalta) 30 mg DAILY ORAL 03/01/18 09:00 03/31/18 08:59 03/01/18 10:23 Heparin Sodium (Porcine) (Heparin 5000 units/ml) 5,000 units EVERY 12 HOURS SUBQ 02/28/18 21:00 03/30/18 20:59 03/01/18 10:25 Insulin Aspart (NovoLOG) BEFORE MEALS AND HS SUBQ 03/01/18 06:30 03/31/18 06:29 03/01/18 11:54 Insulin Aspart (NovoLOG) 6 units NOVOTIAC SUBQ 03/01/18 06:30 03/31/18 06:29 03/01/18 11:54 Insulin Detemir (Levemir) 12 units Q12HR SUBQ 02/28/18 21:45 03/30/18 21:44 03/01/18 10:25 Meropenem 500 mg/ Sodium Chloride 55 ml @ 110 mls/hr Q24H IVPB 03/01/18 15:00 03/06/18 14:59 03/01/18 15:23 Metoprolol Succinate (Toprol XL) 50 mg EVERY 12 HOURS ORAL 03/01/18 09:00 03/31/18 08:59 03/01/18 10:23 Nystatin (Nystop Powder) 1 applic THREE TIMES A DAY TOPIC 03/02/18 09:00 04/01/18 08:59 Ondansetron HCl (Zofran) 4 mg Q6H PRN ORAL Nausea & Vomiting 02/28/18 20:10 03/30/18 20:09 Polyethylene Glycol (Miralax) 17 gm BEDTIME ORAL 03/01/18 21:00 03/31/18 20:59 Polyethylene Glycol (Miralax) 17 gm DAILYPRN PRN ORAL Constipation 02/28/18 21:45 03/30/18 21:44 Sevelamer Carbonate (Renvela) 800 mg THREE TIMES A DAY NG 03/01/18 09:00 03/31/18 08:59 03/01/18 17:34 Sodium Chloride 1,000 ml @ 100 mls/hr Q10H IV 02/28/18 20:01 03/30/18 20:00 03/01/18 15:22 Sodium Citrate (Bicitra) 30 ml EVERY 6 HOURS ORAL 03/01/18 12:00 03/31/18 11:59 03/01/18 17:34 Assessment/Plan Assessment/Plan mdd dc cymbalta Fatmata Nance MD Mar 01, 2018 18:39
[2018-03-01 20:00] VITALS: BP 122/52
[2018-03-01] MEDS ORDERED: Miralax 17gm pkt ORAL SCH (21:00)
[2018-03-02 04:00] VITALS: BP 101/58
[2018-03-02] MEDS: NovoLOG Insulin Flexpen SUBQ SCH ×6 (05:47→20:35)
[2018-03-02] MEDS: Sodium Citrate 30ml ORAL SCH ×4 (05:48→23:31)
--- NOTE | 2018-03-02 06:17 | General Progress Note ---
Assessment/Plan Problem List: (1) Diabetes mellitus type 1, uncontrolled ICD Codes: E10.65 - Type 1 diabetes mellitus with hyperglycemia SNOMED: 51159595, 871386358 (2) Failure to thrive SNOMED: 04025289 (3) Renal failure ICD Codes: N19 - Unspecified kidney failure SNOMED: 19831353 (4) Nephropathy, diabetic ICD Codes: E11.21 - Type 2 diabetes mellitus with diabetic nephropathy SNOMED: 202653265 (5) Hyperparathyroidism ICD Codes: E21.3 - Hyperparathyroidism, unspecified SNOMED: 02062184 (6) Blind left eye ICD Codes: H54.40 - Blindness, one eye, unspecified eye SNOMED: 853687269 Assessment/Plan reduce Levemir to 9 units bid - do NOT unless I am notified reduce Novolog to 4 units ac tid continue NISS Subjective ROS Limited/Unobtainable: Yes Allergies: Coded Allergies: CEFEPIME (Verified Allergy, Intermediate, Rash, 03/01/18) Tolerates Carbapenem Subjective 62-year-old male with hx of severe depression, dementia, DM, chronic renal insufficiency, failed renal transplant, presented from assisted increased with CC of failure to thrive. Patient reportedly had not been taking any food or fluids. History is limited by poor historian. Patient denies any complaints of pain at this time. He was found to have hyperkalemia and severe anemia and admitted to telemetry for further evaluation. Pt is awake currently and doesn't want to talk to anybody Objective Last 24 Hour Vital Signs Date Time Temp Pulse Resp B/P (MAP) Pulse Ox O2 Delivery O2 Flow Rate FiO2 03/02/18 04:00 97.8 62 20 101/58 (72) 99 97.8 03/02/18 03:48 60 03/02/18 00:00 58 03/01/18 21:01 75 122/52 03/01/18 21:00 Room Air 03/01/18 20:00 98.0 82 20 122/52 (75) 98 98.0 03/01/18 20:00 77 03/01/18 16:21 68 03/01/18 16:00 97.5 62 18 100/55 (70) 100 97.5 03/01/18 12:00 97.5 79 20 126/56 (79) 99 97.5 03/01/18 11:26 78 03/01/18 10:23 80 119/52 03/01/18 08:10 Room Air 03/01/18 08:00 97.2 80 20 119/52 (74) 100 97.2 03/01/18 07:53 77 Intake and Output 03/01/18 03/02/18 19:00 07:00 Intake Total 360 ml 790 ml Output Total 800 ml Balance -440 ml 790 ml Intake Oral 360 ml IV Total 790 ml Output Urine Total 800 ml Height (Feet): 5 Height (Inches): 8.00 Weight (Pounds): 165 General Appearance: no apparent distress Neck: normal alignment Cardiovascular: normal rate Respiratory/Chest: lungs clear Abdomen: normal bowel sounds Objective Current Medications Medications (Trade) Dose Ordered Sig/Dunia Route PRN Reason Start Time Stop Time Status Last Admin Dose Admin Bupropion HCl (Wellbutrin XL) 150 mg DAILY ORAL 03/02/18 09:00 04/01/18 08:59 Dextrose (Dextrose 50%) 25 ml STAT PRN IV Hypoglycemia 02/28/18 21:45 03/30/18 21:44 Dextrose (Dextrose 50%) 50 ml STAT PRN IV Hypoglycemia 02/28/18 21:45 03/30/18 21:44 Duloxetine HCl (Cymbalta) 30 mg DAILY ORAL 03/01/18 09:00 03/31/18 08:59 03/01/18 10:23 Heparin Sodium (Porcine) (Heparin 5000 units/ml) 5,000 units EVERY 12 HOURS SUBQ 03/01/18 21:00 03/31/18 20:59 03/01/18 20:59 Insulin Aspart (NovoLOG) BEFORE MEALS AND HS SUBQ 03/01/18 06:30 03/31/18 06:29 03/02/18 05:47 Insulin Aspart (NovoLOG) 6 units NOVOTIAC SUBQ 03/01/18 06:30 03/31/18 06:29 03/02/18 05:47 Insulin Detemir (Levemir) 12 units Q12HR SUBQ 02/28/18 21:45 03/30/18 21:44 03/01/18 21:00 Meropenem 500 mg/ Sodium Chloride 55 ml @ 110 mls/hr Q24H IVPB 03/01/18 15:00 03/06/18 14:59 03/01/18 15:23 Metoprolol Succinate (Toprol XL) 50 mg EVERY 12 HOURS ORAL 03/01/18 09:00 03/31/18 08:59 03/01/18 21:01 Nystatin (Nystop Powder) 1 applic THREE TIMES A DAY TOPIC 03/02/18 09:00 04/01/18 08:59 Ondansetron HCl (Zofran) 4 mg Q6H PRN ORAL Nausea & Vomiting 02/28/18 20:10 03/30/18 20:09 Polyethylene Glycol (Miralax) 17 gm BEDTIME ORAL 03/01/18 21:00 03/31/18 20:59 03/01/18 21:00 Polyethylene Glycol (Miralax) 17 gm DAILYPRN PRN ORAL Constipation 02/28/18 21:45 03/30/18 21:44 Sevelamer Carbonate (Renvela) 800 mg THREE TIMES A DAY NG 03/01/18 09:00 03/31/18 08:59 03/01/18 17:34 Sodium Chloride 1,000 ml @ 100 mls/hr Q10H IV 02/28/18 20:01 03/30/18 20:00 03/02/18 02:06 Sodium Citrate (Bicitra) 30 ml EVERY 6 HOURS ORAL 03/01/18 12:00 03/31/18 11:59 03/02/18 05:48 Item Value Date Time Bedside Blood Glucose 152 mg/dl H 03/02/18 0547 Bedside Blood Glucose 149 mg/dl H 03/01/18 2100 Bedside Blood Glucose 109 mg/dl 03/01/18 1650 Bedside Blood Glucose 243 mg/dl H 03/01/18 1154 Bedside Blood Glucose 243 mg/dl H 03/01/18 1025 [place] Jacques MD Mar 02, 2018 06:17
[2018-03-02 06:45] LABS: BASOPHILS % (AUTO) 0.6 % (0.0-2.0); EOSINOPHILS % (AUTO) 2.1 % (0.0-3.0); HEMATOCRIT 27.8 % (42.0-52.0); HEMOGLOBIN 8.8 G/DL (14.2-18.0); LYMPHOCYTES % (AUTO) 12.3 % (20.0-45.0); MEAN CORPUSCULAR VOLUME 95 FL (80-99); MONOCYTES % (AUTO) 5.7 % (1.0-10.0); NEUTROPHILS % (AUTO) 79.2 % (45.0-75.0); PLATELET COUNT 356 K/UL (150-450); RED BLOOD COUNT 2.92 M/UL (4.70-6.10); RED CELL DISTRIBUTION WIDTH 16.6 % (11.6-14.8); WHITE BLOOD COUNT 13.8 K/UL (4.8-10.8)
[2018-03-02 07:11] LABS: ALANINE AMINOTRANSFERASE 7 U/L (12-78); ALBUMIN 2.2 G/DL (3.4-5.0); ALBUMIN/GLOBULIN RATIO 0.6 (1.0-2.7); ALKALINE PHOSPHATASE 68 U/L (46-116); ANION GAP 20 mmol/L (5-15); ASPARTATE AMINO TRANSFERASE 7 U/L (15-37); BILIRUBIN,TOTAL 0.4 MG/DL (0.2-1.0); BLOOD UREA NITROGEN 66 mg/dL (7-18); CHLORIDE 117 MMOL/L (98-107); CREATINE KINASE 21 U/L (26-308); CREATININE 4.9 MG/DL (0.55-1.30); PHOSPHORUS 4.6 MG/DL (2.5-4.9); POTASSIUM 3.4 MMOL/L (3.5-5.1); SODIUM 145 MMOL/L (136-145)
[2018-03-02 07:38] LABS: CARBON DIOXIDE 8 MMOL/L (21-32)
[2018-03-02 08:00] VITALS: BP 111/58
[2018-03-02 08:01] LABS: GAMMA GLUTAMYL TRANSPEPTIDASE < 3 U/L (5-85)
[2018-03-02] MEDS ORDERED: BuPROPion XL 150mg tab ORAL SCH (09:00)
[2018-03-02] MEDS ORDERED: Levemir Flexpen SUBQ SCH (09:00)
[2018-03-02] MEDS: DULoxetine 30mg cap ORAL SCH (10:00)
[2018-03-02] MEDS: Renvela 800mg Pkt NG SCH ×3 (10:01→17:13)
[2018-03-02] MEDS: Nystatin Powder 100,000 units/gm 15gm TOPIC SCH ×3 (10:01→17:13)
[2018-03-02] MEDS: Metoprolol Succinate XL 50mg tab ORAL SCH (10:01)
[2018-03-02] MEDS: Heparin 5000 units/ml inj SUBQ SCH ×2 (10:02→20:34)
[2018-03-02] MEDS ORDERED: Sodium Bicarbonate 50 ML in 1/2 NS 1000ml 1,000 ML IV SCH (10:30)
--- NOTE | 2018-03-02 11:07 | General Progress Note ---
Assessment/Plan Status: stable, progressing Assessment/Plan mdd cont Wellbutrin xl 150 mg po qam provided ro/st Subjective Date patient seen: Mar 02, 2018 Neurologic/Psychiatric: Reports: anxiety, depressed, emotional problems Allergies: Coded Allergies: CEFEPIME (Verified Allergy, Intermediate, Rash, 03/01/18) Tolerates Carbapenem Subjective the pt ate better today and is more alert and talkative. creatinine is improving Objective Last 24 Hour Vital Signs Date Time Temp Pulse Resp B/P (MAP) Pulse Ox O2 Delivery O2 Flow Rate FiO2 03/02/18 10:01 71 111/58 03/02/18 04:00 97.8 62 20 101/58 (72) 99 97.8 03/02/18 03:48 60 03/02/18 00:00 58 03/01/18 21:01 75 122/52 03/01/18 21:00 Room Air 03/01/18 20:00 98.0 82 20 122/52 (75) 98 98.0 03/01/18 20:00 77 03/01/18 16:21 68 03/01/18 16:00 97.5 62 18 100/55 (70) 100 97.5 03/01/18 12:00 97.5 79 20 126/56 (79) 99 97.5 03/01/18 11:26 78 Intake and Output 03/01/18 03/02/18 19:00 07:00 Intake Total 360 ml 790 ml Output Total 800 ml 300 ml Balance -440 ml 490 ml Intake Oral 360 ml IV Total 790 ml Output Urine Total 800 ml 300 ml Laboratory Tests 03/02/18 05:04: White Blood Count 13.8H, Red Blood Count 2.92L, Hemoglobin 8.8L, Hematocrit 27.8L, Mean Corpuscular Volume 95, Mean Corpuscular Hemoglobin 30.2, Mean Corpuscular Hemoglobin Concent 31.8L, Red Cell Distribution Width 16.6H, Platelet Count 356, Mean Platelet Volume 6.7, Neutrophils (%) (Auto) 79.2H, Lymphocytes (%) (Auto) 12.3L, Monocytes (%) (Auto) 5.7, Eosinophils (%) (Auto) 2.1, Basophils (%) (Auto) 0.6, Sodium Level 145, Potassium Level 3.4L, Chloride Level 117H, Carbon Dioxide Level 8*L, Anion Gap 20H, Blood Urea Nitrogen 66H, Creatinine 4.9H, Estimat Glomerular Filtration Rate 12.1, Glucose Level 158#H, Hemoglobin A1c 5.6, Uric Acid 6.4, Calcium Level 8.0L, Phosphorus Level 4.6, Magnesium Level 1.6L, Total Bilirubin 0.4, Gamma Glutamyl Transpeptidase < 3L, Aspartate Amino Transf (AST/SGOT) 7L, Alanine Aminotransferase (ALT/SGPT) 7L, Alkaline Phosphatase 68, Total Creatine Kinase 21L, C-Reactive Protein, Quantitative 4.9H, Pro-B-Type Natriuretic Peptide 2826H, Total Protein 5.9L, Albumin 2.2L, Globulin 3.7, Albumin/Globulin Ratio 0.6L Height (Feet): 5 Height (Inches): 8.00 Weight (Pounds): 153 General Appearance: no apparent distress, alert Neurologic: oriented x 3, responsive, depressed affect Fatmata Lu MD Mar 02, 2018 11:07
--- NOTE | 2018-03-02 11:18 | Nephrology Progress Note ---
Assessment/Plan Problem List: (1) Anemia in chronic kidney disease (2) Acute on chronic renal failure (3) Psychiatric disturbance (4) Acidosis, metabolic (5) UTI (urinary tract infection) Assessment Acute renal failure on chronic kidney disease Metabolic acidosis and HyperGlycemia Recurrent hematuria Probably UTI with a history of recurrent UTI Anemia due to acute blood loss( i.e. hematuria) and CKD Leukocytosis Suprapubic catheter Neurogenic bladder BPH Status post renal pancreatic transplant h/o Elevated lipase Diabetes mellitus type 2 with hx of DKA Hypertension COPD/asthma Coronary artery disease with history of NSTEMI major depressive disorder with history of suicidal attempt encephalopathy Plan adjust BP meds- Hydrate- Bicarb via IV fluids PO Bicitra BS check antibiotics Anemia [place] Gastric support patient DNR monitor renal parameters avoid nephrotoxics dialysis ?? Subjective ROS Limited/Unobtainable: No Constitutional: Reports: malaise, weakness Objective Objective Last 24 Hour Vital Signs Date Time Temp Pulse Resp B/P (MAP) Pulse Ox O2 Delivery O2 Flow Rate FiO2 03/02/18 10:01 71 111/58 03/02/18 04:00 97.8 62 20 101/58 (72) 99 97.8 03/02/18 03:48 60 03/02/18 00:00 58 03/01/18 21:01 75 122/52 03/01/18 21:00 Room Air 03/01/18 20:00 98.0 82 20 122/52 (75) 98 98.0 03/01/18 20:00 77 03/01/18 16:21 68 03/01/18 16:00 97.5 62 18 100/55 (70) 100 97.5 03/01/18 12:00 97.5 79 20 126/56 (79) 99 97.5 03/01/18 11:26 78 Intake and Output 03/01/18 03/02/18 19:00 07:00 Intake Total 360 ml 790 ml Output Total 800 ml 300 ml Balance -440 ml 490 ml Intake Oral 360 ml IV Total 790 ml Output Urine Total 800 ml 300 ml Laboratory Tests 03/02/18 05:04: White Blood Count 13.8H, Red Blood Count 2.92L, Hemoglobin 8.8L, Hematocrit 27.8L, Mean Corpuscular Volume 95, Mean Corpuscular Hemoglobin 30.2, Mean Corpuscular Hemoglobin Concent 31.8L, Red Cell Distribution Width 16.6H, Platelet Count 356, Mean Platelet Volume 6.7, Neutrophils (%) (Auto) 79.2H, Lymphocytes (%) (Auto) 12.3L, Monocytes (%) (Auto) 5.7, Eosinophils (%) (Auto) 2.1, Basophils (%) (Auto) 0.6, Sodium Level 145, Potassium Level 3.4L, Chloride Level 117H, Carbon Dioxide Level 8*L, Anion Gap 20H, Blood Urea Nitrogen 66H, Creatinine 4.9H, Estimat Glomerular Filtration Rate 12.1, Glucose Level 158#H, Hemoglobin A1c 5.6, Uric Acid 6.4, Calcium Level 8.0L, Phosphorus Level 4.6, Magnesium Level 1.6L, Total Bilirubin 0.4, Gamma Glutamyl Transpeptidase < 3L, Aspartate Amino Transf (AST/SGOT) 7L, Alanine Aminotransferase (ALT/SGPT) 7L, Alkaline Phosphatase 68, Total Creatine Kinase 21L, C-Reactive Protein, Quantitative 4.9H, Pro-B-Type Natriuretic Peptide 2826H, Total Protein 5.9L, Albumin 2.2L, Globulin 3.7, Albumin/Globulin Ratio 0.6L Height (Feet): 5 Height (Inches): 8.00 Weight (Pounds): 153 General Appearance: agitated Cardiovascular: bradycardia Respiratory/Chest: decreased breath sounds Abdomen: distended Genitourinary/Rectal: other - supra pubic Luis Chambers MD Mar 02, 2018 11:18
--- NOTE | 2018-03-02 11:23 | Pulmonology Progress Note ---
Assessment/Plan Problems: (1) ATN (acute tubular necrosis) (2) Acute on chronic renal failure (3) Pulmonary HTN (4) HTN (hypertension) (5) Diabetes mellitus out of control (6) Psychiatric disturbance (7) Kidney transplant status (8) BPH (benign prostatic hypertrophy) Assessment/Plan improving bun/creatinine less symptomatic treatment psychology evaluation Subjective ROS Limited/Unobtainable: No Constitutional: Reports: no symptoms HEENT: Repors: no symptoms Respiratory: Reports: no symptoms Cardiovascular: Reports: no symptoms Allergies: Coded Allergies: CEFEPIME (Verified Allergy, Intermediate, Rash, 03/01/18) Tolerates Carbapenem Objective Last 24 Hour Vital Signs Date Time Temp Pulse Resp B/P (MAP) Pulse Ox O2 Delivery O2 Flow Rate FiO2 03/02/18 10:01 71 111/58 03/02/18 04:00 97.8 62 20 101/58 (72) 99 97.8 03/02/18 03:48 60 03/02/18 00:00 58 03/01/18 21:01 75 122/52 03/01/18 21:00 Room Air 03/01/18 20:00 98.0 82 20 122/52 (75) 98 98.0 03/01/18 20:00 77 03/01/18 16:21 68 03/01/18 16:00 97.5 62 18 100/55 (70) 100 97.5 03/01/18 12:00 97.5 79 20 126/56 (79) 99 97.5 03/01/18 11:26 78 Intake and Output 03/01/18 03/02/18 19:00 07:00 Intake Total 360 ml 790 ml Output Total 800 ml 300 ml Balance -440 ml 490 ml Intake Oral 360 ml IV Total 790 ml Output Urine Total 800 ml 300 ml General Appearance: WD/WN HEENT: normocephalic, atraumatic Respiratory/Chest: chest wall non-tender, lungs clear, normal breath sounds Cardiovascular: normal peripheral pulses, normal rate Abdomen: normal bowel sounds, soft, non tender Genitourinary: normal external genitalia Extremities: no cyanosis Skin: no rash, no ulcers 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 Microbiology Date/Time Source Procedure Growth Status 02/28/18 15:45 Blood Blood Culture - Preliminary NO GROWTH AFTER 24 HOURS Resulted 02/28/18 15:28 Blood Blood Culture - Preliminary NO GROWTH AFTER 24 HOURS Resulted 03/01/18 03:30 Urine,Suprapubic Urine Culture - Preliminary Gram Negative Bacillus 1 Resulted Laboratory Tests 03/02/18 05:04: White Blood Count 13.8H, Red Blood Count 2.92L, Hemoglobin 8.8L, Hematocrit 27.8L, Mean Corpuscular Volume 95, Mean Corpuscular Hemoglobin 30.2, Mean Corpuscular Hemoglobin Concent 31.8L, Red Cell Distribution Width 16.6H, Platelet Count 356, Mean Platelet Volume 6.7, Neutrophils (%) (Auto) 79.2H, Lymphocytes (%) (Auto) 12.3L, Monocytes (%) (Auto) 5.7, Eosinophils (%) (Auto) 2.1, Basophils (%) (Auto) 0.6, Sodium Level 145, Potassium Level 3.4L, Chloride Level 117H, Carbon Dioxide Level 8*L, Anion Gap 20H, Blood Urea Nitrogen 66H, Creatinine 4.9H, Estimat Glomerular Filtration Rate 12.1, Glucose Level 158#H, Hemoglobin A1c 5.6, Uric Acid 6.4, Calcium Level 8.0L, Phosphorus Level 4.6, Magnesium Level 1.6L, Total Bilirubin 0.4, Gamma Glutamyl Transpeptidase < 3L, Aspartate Amino Transf (AST/SGOT) 7L, Alanine Aminotransferase (ALT/SGPT) 7L, Alkaline Phosphatase 68, Total Creatine Kinase 21L, C-Reactive Protein, Quantitative 4.9H, Pro-B-Type Natriuretic Peptide 2826H, Total Protein 5.9L, Albumin 2.2L, Globulin 3.7, Albumin/Globulin Ratio 0.6L Current Medications Medications (Trade) Dose Ordered Sig/Dunia Route PRN Reason Start Time Stop Time Status Last Admin Dose Admin Bupropion HCl (Wellbutrin XL) 150 mg DAILY ORAL 03/02/18 09:00 04/01/18 08:59 03/02/18 10:00 Dextrose (Dextrose 50%) 25 ml STAT PRN IV Hypoglycemia 02/28/18 21:45 03/30/18 21:44 Dextrose (Dextrose 50%) 50 ml STAT PRN IV Hypoglycemia 02/28/18 21:45 03/30/18 21:44 Duloxetine HCl (Cymbalta) 30 mg DAILY ORAL 03/01/18 09:00 03/31/18 08:59 03/02/18 10:00 Heparin Sodium (Porcine) (Heparin 5000 units/ml) 5,000 units EVERY 12 HOURS SUBQ 03/01/18 21:00 03/31/18 20:59 03/02/18 10:02 Insulin Aspart (NovoLOG) BEFORE MEALS AND HS SUBQ 03/01/18 06:30 03/31/18 06:29 03/02/18 05:47 Insulin Aspart (NovoLOG) 4 units NOVOTIAC SUBQ 03/02/18 11:50 03/31/18 11:49 Insulin Detemir (Levemir) 9 units Q12HR SUBQ 03/02/18 09:00 03/30/18 21:44 03/02/18 10:03 Meropenem 500 mg/ Sodium Chloride 55 ml @ 110 mls/hr Q24H IVPB 03/01/18 15:00 03/06/18 14:59 03/01/18 15:23 Metoprolol Succinate (Toprol XL) 12.5 mg EVERY 12 HOURS ORAL 03/02/18 21:00 03/31/18 08:59 Nystatin (Nystop Powder) 1 applic THREE TIMES A DAY TOPIC 03/02/18 09:00 04/01/18 08:59 03/02/18 10:01 Ondansetron HCl (Zofran) 4 mg Q6H PRN ORAL Nausea & Vomiting 02/28/18 20:10 03/30/18 20:09 Pantoprazole (Protonix) 40 mg DAILY ORAL 03/02/18 11:15 04/01/18 11:14 Polyethylene Glycol (Miralax) 17 gm BEDTIME ORAL 03/01/18 21:00 03/31/18 20:59 03/01/18 21:00 Polyethylene Glycol (Miralax) 17 gm DAILYPRN PRN ORAL Constipation 02/28/18 21:45 03/30/18 21:44 Sevelamer Carbonate (Renvela) 800 mg THREE TIMES A DAY NG 03/01/18 09:00 03/31/18 08:59 03/02/18 10:01 Sodium Bicarbonate 50 ml/ Sodium Chloride 1,050 ml @ 75 mls/hr Q14H IV 03/02/18 10:30 04/01/18 10:29 8/22/18 10:19 Sodium Citrate (Bicitra) 30 ml EVERY 6 HOURS ORAL 03/01/18 12:00 03/31/18 11:59 03/02/18 05:48 Esdras Delgado MD Mar 02, 2018 11:23
[2018-03-02] MEDS ORDERED: NovoLOG Insulin Flexpen SUBQ SCH (11:50)
[2018-03-02 12:00] VITALS: BP 102/50
[2018-03-02] MEDS: Meropenem 500 MG in NS 55 ML IVPB SCH (15:43)
[2018-03-02 16:00] VITALS: BP 125/60
[2018-03-02] MEDS ORDERED: Miralax 17gm pkt ORAL PRN (16:00)
--- NOTE | 2018-03-02 16:46 | Infectious Diseases Prog Note ---
Assessment/Plan Assessment/Plan Assessment: Leukocytosis; improving- r/o UTI, PNA, bacteremia -ucx GNR; u/a p -Bcx NTD -CXR: no acute process RIVKA on CKD ANion gap metabolic acidosis DKA (+acetones) FTT -Recent probable Providencia UTI s/p Rx (early february 2018) -Hx of recurrent hematuria - hx of probable ESBL P. mirabilis UTI s/p Rx 11/2017 -. hx of hematuria, penile extensive hemorrhage with surrounding cellulitis 2016, s/p Rx -s/p suprapubic cystostomy 09/28; re inserted 10/01 after patient pull it off -. History of coag-negative Staph bacteremia in July 2007, AMY was negative for endocarditis (due to bacteremia due to the PICC line infection). -. History of sepsis. -. History of CKD. -. History of renal and pancreas transplant about 10 years ago. -hx of prior HD -. History of enterococcal bacteremia in May 2017. -. History of suicidal attempt. -. History rof ME/CAD. -. Anemia. -. History of colon polyps. -. Hypertension. - Diabetes. Plan: -Continue empiric Meropenem #2 pending cultures -if fever, worsening WBC, will add IV Vancomycin -02/28 SP Azithromycin x1 -02/15 SP Ertapenem #10 -12/02 SP Ertapenem #5 -11/29 SP IV Vancomycin #4, -11/28 SP Aztreonam #3 -10/06 SP Doxycycline and Levaquin #4 -10/02 SP IV Vanco/Aztreonam #6 -09/10/17 SP Daptomycin #34 -f/u u/a w/, Bcx x2 -f/u cx -Monitor CBC/CMP, temperatures -aspiration precautions Thank you for this consultation. Will continue to follow along with you. Discussed with RN. Subjective Allergies: Coded Allergies: CEFEPIME (Verified Allergy, Intermediate, Rash, 03/01/18) Tolerates Carbapenem Subjective afebrile leukocytosis improving Objective Vital Signs Last 24 Hour Vital Signs Date Time Temp Pulse Resp B/P (MAP) Pulse Ox O2 Delivery O2 Flow Rate FiO2 03/02/18 12:00 98.4 78 18 102/50 (67) 100 98.4 03/02/18 12:00 78 03/02/18 10:01 71 111/58 03/02/18 09:00 Room Air 03/02/18 08:00 97.7 71 18 111/58 (75) 100 97.7 03/02/18 08:00 68 03/02/18 04:00 97.8 62 20 101/58 (72) 99 97.8 03/02/18 03:48 60 03/02/18 00:00 58 03/01/18 21:01 75 122/52 03/01/18 21:00 Room Air 03/01/18 20:00 98.0 82 20 122/52 (75) 98 98.0 03/01/18 20:00 77 Height (Feet): 5 Height (Inches): 8.00 Weight (Pounds): 153 Objective General Appearance: cachetic Lines, tubes and drains: peripheral HEENT: normocephalic Neck: non-tender, normal alignment Respiratory/Chest: chest wall non-tender, lungs clear Cardiovascular/Chest: normal peripheral pulses, normal rate Abdomen: normal bowel sounds Extremities: normal range of motion Skin Exam: normal pigmentation Microbiology Date/Time Source Procedure Growth Status 02/28/18 15:45 Blood Blood Culture - Preliminary NO GROWTH AFTER 24 HOURS Resulted 02/28/18 15:28 Blood Blood Culture - Preliminary NO GROWTH AFTER 24 HOURS Resulted 03/01/18 03:30 Urine,Suprapubic Urine Culture - Preliminary Gram Negative Bacillus 1 Resulted Laboratory Tests Test 03/02/18 05:04 White Blood Count 13.8 K/UL (4.8-10.8) H Red Blood Count 2.92 M/UL (4.70-6.10) L Hemoglobin 8.8 G/DL (14.2-18.0) L Hematocrit 27.8 % (42.0-52.0) L Mean Corpuscular Volume 95 FL (80-99) Mean Corpuscular Hemoglobin 30.2 PG (27.0-31.0) Mean Corpuscular Hemoglobin Concent 31.8 G/DL (32.0-36.0) L Red Cell Distribution Width 16.6 % (11.6-14.8) H Platelet Count 356 K/UL (150-450) Mean Platelet Volume 6.7 FL (6.5-10.1) Neutrophils (%) (Auto) 79.2 % (45.0-75.0) H Lymphocytes (%) (Auto) 12.3 % (20.0-45.0) L Monocytes (%) (Auto) 5.7 % (1.0-10.0) Eosinophils (%) (Auto) 2.1 % (0.0-3.0) Basophils (%) (Auto) 0.6 % (0.0-2.0) Sodium Level 145 MMOL/L (136-145) Potassium Level 3.4 MMOL/L (3.5-5.1) L Chloride Level 117 MMOL/L (98-107) H Carbon Dioxide Level 8 MMOL/L (21-32) *L Anion Gap 20 mmol/L (5-15) H Blood Urea Nitrogen 66 mg/dL (7-18) H Creatinine 4.9 MG/DL (0.55-1.30) H Estimat Glomerular Filtration Rate 12.1 mL/min (>60) Glucose Level 158 MG/DL (74-106) #H Hemoglobin A1c 5.6 % (4.3-6.0) Uric Acid 6.4 MG/DL (2.6-7.2) Calcium Level 8.0 MG/DL (8.5-10.1) L Phosphorus Level 4.6 MG/DL (2.5-4.9) Magnesium Level 1.6 MG/DL (1.8-2.4) L Total Bilirubin 0.4 MG/DL (0.2-1.0) Gamma Glutamyl Transpeptidase < 3 U/L (5-85) L Aspartate Amino Transf (AST/SGOT) 7 U/L (15-37) L Alanine Aminotransferase (ALT/SGPT) 7 U/L (12-78) L Alkaline Phosphatase 68 U/L (46-116) Total Creatine Kinase 21 U/L (26-308) L C-Reactive Protein, Quantitative 4.9 mg/dL (0.00-0.90) H Pro-B-Type Natriuretic Peptide 2826 pg/mL (0-125) H Total Protein 5.9 G/DL (6.4-8.2) L Albumin 2.2 G/DL (3.4-5.0) L Globulin 3.7 g/dL Albumin/Globulin Ratio 0.6 (1.0-2.7) L Current Medications Medications (Trade) Dose Ordered Sig/Dunia Route PRN Reason Start Time Stop Time Status Last Admin Dose Admin Bupropion HCl (Wellbutrin XL) 150 mg DAILY ORAL 03/03/18 09:00 04/01/18 08:59 Dextrose (Dextrose 50%) 25 ml STAT PRN IV Hypoglycemia 03/02/18 16:00 03/30/18 15:59 Dextrose (Dextrose 50%) 50 ml STAT PRN IV Hypoglycemia 03/02/18 16:00 03/30/18 15:59 Duloxetine HCl (Cymbalta) 30 mg DAILY ORAL 03/03/18 09:00 03/31/18 08:59 Heparin Sodium (Porcine) (Heparin 5000 units/ml) 5,000 units EVERY 12 HOURS SUBQ 03/02/18 21:00 03/31/18 20:59 Insulin Aspart (NovoLOG) BEFORE MEALS AND HS SUBQ 03/02/18 16:30 03/31/18 06:29 Insulin Aspart (NovoLOG) 4 units NOVOTIAC SUBQ 03/02/18 16:50 03/31/18 11:49 Insulin Detemir (Levemir) 9 units Q12HR SUBQ 03/02/18 21:00 03/30/18 21:44 Meropenem 500 mg/ Sodium Chloride 55 ml @ 110 mls/hr Q24H IVPB 03/02/18 15:00 03/06/18 14:59 03/02/18 15:43 Metoprolol Succinate (Toprol XL) 12.5 mg EVERY 12 HOURS ORAL 03/02/18 21:00 03/31/18 08:59 Nystatin (Nystop Powder) 1 applic THREE TIMES A DAY TOPIC 03/02/18 18:00 04/01/18 08:59 Ondansetron HCl (Zofran) 4 mg Q6H PRN ORAL Nausea & Vomiting 03/02/18 16:00 03/30/18 15:59 Pantoprazole (Protonix) 40 mg DAILY ORAL 03/03/18 09:00 04/01/18 11:14 Polyethylene Glycol (Miralax) 17 gm BEDTIME ORAL 03/02/18 21:00 03/31/18 20:59 Polyethylene Glycol (Miralax) 17 gm DAILYPRN PRN ORAL Constipation 03/02/18 16:00 03/30/18 15:59 Sevelamer Carbonate (Renvela) 800 mg THREE TIMES A DAY NG 03/02/18 18:00 03/31/18 08:59 Sodium Bicarbonate 50 ml/ Sodium Chloride 1,050 ml @ 75 mls/hr Q14H IV 03/02/18 10:30 03/02/18 20:59 03/02/18 10:19 Sodium Bicarbonate 50 ml/ Sodium Chloride 1,050 ml @ 75 mls/hr Q14H IV 03/02/18 22:00 04/01/18 21:59 Sodium Citrate (Bicitra) 30 ml EVERY 6 HOURS ORAL 03/02/18 18:00 03/31/18 11:59 Monique Read M.D. Mar 02, 2018 16:46
--- NOTE | 2018-03-02 17:58 | Internal Med Progress Note ---
Subjective Date of Service: Mar 02, 2018 Physician Name Jose Glasgow Attending Physician Christopher Rosado MD Current Medications Medications (Trade) Dose Ordered Sig/Dunia Route PRN Reason Start Time Stop Time Status Last Admin Dose Admin Bupropion HCl (Wellbutrin XL) 150 mg DAILY ORAL 03/03/18 09:00 04/01/18 08:59 Dextrose (Dextrose 50%) 25 ml STAT PRN IV Hypoglycemia 03/02/18 16:00 03/30/18 15:59 Dextrose (Dextrose 50%) 50 ml STAT PRN IV Hypoglycemia 03/02/18 16:00 03/30/18 15:59 Duloxetine HCl (Cymbalta) 30 mg DAILY ORAL 03/03/18 09:00 03/31/18 08:59 Heparin Sodium (Porcine) (Heparin 5000 units/ml) 5,000 units EVERY 12 HOURS SUBQ 03/02/18 21:00 03/31/18 20:59 Insulin Aspart (NovoLOG) BEFORE MEALS AND HS SUBQ 03/02/18 16:30 03/31/18 06:29 03/02/18 17:14 Insulin Aspart (NovoLOG) 4 units NOVOTIAC SUBQ 03/02/18 16:50 03/31/18 11:49 03/02/18 17:15 Insulin Detemir (Levemir) 9 units Q12HR SUBQ 03/02/18 21:00 03/30/18 21:44 Meropenem 500 mg/ Sodium Chloride 55 ml @ 110 mls/hr Q24H IVPB 03/02/18 15:00 03/06/18 14:59 03/02/18 15:43 Metoprolol Succinate (Toprol XL) 12.5 mg EVERY 12 HOURS ORAL 03/02/18 21:00 03/31/18 08:59 Nystatin (Nystop Powder) 1 applic THREE TIMES A DAY TOPIC 03/02/18 18:00 04/01/18 08:59 Ondansetron HCl (Zofran) 4 mg Q6H PRN ORAL Nausea & Vomiting 03/02/18 16:00 03/30/18 15:59 Pantoprazole (Protonix) 40 mg DAILY ORAL 03/03/18 09:00 04/01/18 11:14 Polyethylene Glycol (Miralax) 17 gm BEDTIME ORAL 03/02/18 21:00 03/31/18 20:59 Polyethylene Glycol (Miralax) 17 gm DAILYPRN PRN ORAL Constipation 03/02/18 16:00 03/30/18 15:59 Sevelamer Carbonate (Renvela) 800 mg THREE TIMES A DAY NG 03/02/18 18:00 03/31/18 08:59 03/02/18 17:13 Sodium Bicarbonate 50 ml/ Sodium Chloride 1,050 ml @ 75 mls/hr Q14H IV 03/02/18 10:30 03/02/18 20:59 03/02/18 10:19 Sodium Bicarbonate 50 ml/ Sodium Chloride 1,050 ml @ 75 mls/hr Q14H IV 03/02/18 22:00 04/01/18 21:59 Sodium Citrate (Bicitra) 30 ml EVERY 6 HOURS ORAL 03/02/18 18:00 03/31/18 11:59 03/02/18 17:13 Allergies: Coded Allergies: CEFEPIME (Verified Allergy, Intermediate, Rash, 03/01/18) Tolerates Carbapenem ROS Limited/Unobtainable: No Constitutional: Reports: no symptoms HEENT: Reports: no symptoms Cardiovascular: Reports: no symptoms Respiratory: Reports: no symptoms Gastrointestinal/Abdominal: Reports: no symptoms Genitourinary: Reports: no symptoms Neurologic/Psychiatric: Reports: no symptoms Subjective 62 YO M admitted with failure to thrive. Now leukocytosis. More alert today. Cover for Int Med-Dr Rosado Objective Last Vital Signs Date Time Temp Pulse Resp B/P (MAP) Pulse Ox O2 Delivery O2 Flow Rate FiO2 03/02/18 16:00 98.3 68 18 125/60 (81) 100 98.3 03/02/18 09:00 Room Air Laboratory Tests Test 03/02/18 05:04 White Blood Count 13.8 K/UL (4.8-10.8) H Red Blood Count 2.92 M/UL (4.70-6.10) L Hemoglobin 8.8 G/DL (14.2-18.0) L Hematocrit 27.8 % (42.0-52.0) L Mean Corpuscular Volume 95 FL (80-99) Mean Corpuscular Hemoglobin 30.2 PG (27.0-31.0) Mean Corpuscular Hemoglobin Concent 31.8 G/DL (32.0-36.0) L Red Cell Distribution Width 16.6 % (11.6-14.8) H Platelet Count 356 K/UL (150-450) Mean Platelet Volume 6.7 FL (6.5-10.1) Neutrophils (%) (Auto) 79.2 % (45.0-75.0) H Lymphocytes (%) (Auto) 12.3 % (20.0-45.0) L Monocytes (%) (Auto) 5.7 % (1.0-10.0) Eosinophils (%) (Auto) 2.1 % (0.0-3.0) Basophils (%) (Auto) 0.6 % (0.0-2.0) Sodium Level 145 MMOL/L (136-145) Potassium Level 3.4 MMOL/L (3.5-5.1) L Chloride Level 117 MMOL/L (98-107) H Carbon Dioxide Level 8 MMOL/L (21-32) *L Anion Gap 20 mmol/L (5-15) H Blood Urea Nitrogen 66 mg/dL (7-18) H Creatinine 4.9 MG/DL (0.55-1.30) H Estimat Glomerular Filtration Rate 12.1 mL/min (>60) Glucose Level 158 MG/DL (74-106) #H Hemoglobin A1c 5.6 % (4.3-6.0) Uric Acid 6.4 MG/DL (2.6-7.2) Calcium Level 8.0 MG/DL (8.5-10.1) L Phosphorus Level 4.6 MG/DL (2.5-4.9) Magnesium Level 1.6 MG/DL (1.8-2.4) L Total Bilirubin 0.4 MG/DL (0.2-1.0) Gamma Glutamyl Transpeptidase < 3 U/L (5-85) L Aspartate Amino Transf (AST/SGOT) 7 U/L (15-37) L Alanine Aminotransferase (ALT/SGPT) 7 U/L (12-78) L Alkaline Phosphatase 68 U/L (46-116) Total Creatine Kinase 21 U/L (26-308) L C-Reactive Protein, Quantitative 4.9 mg/dL (0.00-0.90) H Pro-B-Type Natriuretic Peptide 2826 pg/mL (0-125) H Total Protein 5.9 G/DL (6.4-8.2) L Albumin 2.2 G/DL (3.4-5.0) L Globulin 3.7 g/dL Albumin/Globulin Ratio 0.6 (1.0-2.7) L Microbiology Date/Time Source Procedure Growth Status 02/28/18 15:45 Blood Blood Culture - Preliminary NO GROWTH AFTER 24 HOURS Resulted 02/28/18 15:28 Blood Blood Culture - Preliminary NO GROWTH AFTER 24 HOURS Resulted 03/01/18 03:30 Urine,Suprapubic Urine Culture - Preliminary Gram Negative Bacillus 1 Resulted Intake and Output 03/01/18 03/02/18 19:00 07:00 Intake Total 360 ml 790 ml Output Total 800 ml 300 ml Balance -440 ml 490 ml Intake Oral 360 ml IV Total 790 ml Output Urine Total 800 ml 300 ml Objective General Appearance: WD/WN, no apparent distress, alert EENT: PERRL/EOMI, normal ENT inspection Neck: non-tender, normal alignment, supple, normal inspection Cardiovascular: normal peripheral pulses, normal rate, regular rhythm, no gallop/murmur, no JVD Respiratory/Chest: chest wall non-tender, lungs clear, normal breath sounds, no respiratory distress, no accessory muscle use Abdomen: normal bowel sounds, non tender, soft, no organomegaly, no mass Extremities: normal range of motion 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 Continue meropenem per ID-see note (3) CKD (chronic kidney disease), stage III (4) BPH (benign prostatic hypertrophy) (5) DM (diabetes mellitus) Assessment & Plan: Continue novolog and levemir insulin (6) HTN (hypertension) Assessment & Plan: continue toprol (7) Coronary heart disease Status: progressing Jose Glasgow MD Mar 02, 2018 17:58
[2018-03-02 18:52] LABS: APPEARANCE,URINE SLIGHTLY CLOUDY; BILIRUBIN, URINE NEGATIVE (NEGATIVE); COLOR,URINE PALE YELLOW; GLUCOSE, URINE (UA) 1+ (NEGATIVE); KETONES,URINE NEGATIVE (NEGATIVE); LEUKOCYTE ESTERASE ,URINE 3+ (NEGATIVE); NITRITE,URINE NEGATIVE (NEGATIVE); PH,URINE 8 (4.5-8.0); PROTEIN,URINE 2+ (NEGATIVE); UROBILINOGEN,URINE NORMAL MG/DL (0.0-1.0)
[2018-03-02 20:00] VITALS: BP 96/49
[2018-03-02] MEDS: Miralax 17gm pkt ORAL SCH (20:33)
[2018-03-02] MEDS: Levemir Flexpen SUBQ SCH (20:36)
[2018-03-02] MEDS: Metoprolol Succinate XL 25mg tab ORAL SCH (20:51)
[2018-03-02] MEDS ORDERED: Metoprolol Succinate XL 25mg tab ORAL SCH (21:00)
[2018-03-02] MEDS: Sodium Bicarbonate 50 ML in 1/2 NS 1000ml 1,000 ML IV SCH (21:32)
[2018-03-03] VITALS: BP 107/52
[2018-03-03 04:00] VITALS: BP 126/55
[2018-03-03] MEDS: Sodium Citrate 30ml ORAL SCH ×3 (06:05→18:02)
[2018-03-03] MEDS: NovoLOG Insulin Flexpen SUBQ SCH ×7 (06:06→21:00)
[2018-03-03 08:00] VITALS: BP 123/73
[2018-03-03] MEDS: DULoxetine 30mg cap ORAL SCH (08:37)
[2018-03-03] MEDS: BuPROPion XL 150mg tab ORAL SCH (08:37)
[2018-03-03] MEDS: Metoprolol Succinate XL 25mg tab ORAL SCH ×2 (08:38→21:00)
[2018-03-03] MEDS: Renvela 800mg Pkt NG SCH (08:38)
[2018-03-03] MEDS: Heparin 5000 units/ml inj SUBQ SCH ×2 (08:39→20:57)
[2018-03-03] MEDS: Levemir Flexpen SUBQ SCH ×2 (08:40→20:59)
[2018-03-03] MEDS: Nystatin Powder 100,000 units/gm 15gm TOPIC SCH ×3 (08:41→18:02)
[2018-03-03 10:02] LABS: BASOPHILS % (AUTO) 0.6 % (0.0-2.0); HEMATOCRIT 25.9 % (42.0-52.0); HEMOGLOBIN 8.3 G/DL (14.2-18.0); LYMPHOCYTES % (AUTO) 9.4 % (20.0-45.0); MEAN CORPUSCULAR VOLUME 95 FL (80-99); MONOCYTES % (AUTO) 7.7 % (1.0-10.0); NEUTROPHILS % (AUTO) 80.3 % (45.0-75.0); PLATELET COUNT 337 K/UL (150-450); RED BLOOD COUNT 2.74 M/UL (4.70-6.10); RED CELL DISTRIBUTION WIDTH 16.5 % (11.6-14.8); WHITE BLOOD COUNT 11.3 K/UL (4.8-10.8)
[2018-03-03 10:15] LABS: ANION GAP 16 mmol/L (5-15); BLOOD UREA NITROGEN 60 mg/dL (7-18); CALCIUM 7.5 MG/DL (8.5-10.1); CARBON DIOXIDE 12 MMOL/L (21-32); CHLORIDE 114 MMOL/L (98-107); CREATININE 4.3 MG/DL (0.55-1.30); POTASSIUM 3.4 MMOL/L (3.5-5.1); SODIUM 142 MMOL/L (136-145)
[2018-03-03 10:19] LABS: ALANINE AMINOTRANSFERASE 8 U/L (12-78); ALBUMIN 1.9 G/DL (3.4-5.0); ALBUMIN/GLOBULIN RATIO 0.5 (1.0-2.7); ALKALINE PHOSPHATASE 62 U/L (46-116); ASPARTATE AMINO TRANSFERASE 7 U/L (15-37); BILIRUBIN,TOTAL 0.3 MG/DL (0.2-1.0); PHOSPHORUS 3.2 MG/DL (2.5-4.9)
--- NOTE | 2018-03-03 10:27 | General Progress Note ---
Assessment/Plan Problem List: (1) Diabetes mellitus type 1, uncontrolled ICD Codes: E10.65 - Type 1 diabetes mellitus with hyperglycemia SNOMED: 47500160, 961925973 (2) Failure to thrive SNOMED: 81350240 (3) Renal failure ICD Codes: N19 - Unspecified kidney failure SNOMED: 39040175 (4) Nephropathy, diabetic ICD Codes: E11.21 - Type 2 diabetes mellitus with diabetic nephropathy SNOMED: 814614680 (5) Hyperparathyroidism ICD Codes: E21.3 - Hyperparathyroidism, unspecified SNOMED: 16691924 (6) Blind left eye ICD Codes: H54.40 - Blindness, one eye, unspecified eye SNOMED: 814661901 Assessment/Plan increase Levemir to 10 units bid - do NOT unless I am notified continue Novolog 4 units ac tid continue NISS Subjective ROS Limited/Unobtainable: Yes Allergies: Coded Allergies: CEFEPIME (Verified Allergy, Intermediate, Rash, 03/01/18) Tolerates Carbapenem Subjective events noted Objective Last 24 Hour Vital Signs Date Time Temp Pulse Resp B/P (MAP) Pulse Ox O2 Delivery O2 Flow Rate FiO2 03/03/18 09:00 Room Air 03/03/18 08:38 83 123/73 03/03/18 08:00 97.7 83 20 123/73 (90) 100 97.7 03/03/18 04:00 97.8 71 20 126/55 (78) 100 97.8 03/03/18 00:00 98.2 70 18 107/52 (70) 100 98.2 03/02/18 21:00 Room Air 03/02/18 20:51 61 96/49 03/02/18 20:00 96.7 61 20 96/49 (65) 98 96.7 03/02/18 16:00 98.3 68 18 125/60 (81) 100 98.3 03/02/18 12:00 98.4 78 18 102/50 (67) 100 98.4 03/02/18 12:00 78 Intake and Output 03/02/18 03/03/18 19:00 07:00 Intake Total 760 ml 915 ml Output Total 550 ml 1200 ml Balance 210 ml -285 ml Intake Oral 480 ml 120 ml IV Total 280 ml 795 ml Output Urine Total 550 ml 1200 ml Laboratory Tests 03/02/18 18:35: Urine Color Pale yellow, Urine Appearance Slightly cloudy, Urine pH 8, Urine Specific [place] 1.010, Urine Protein 2+H, Urine Glucose (UA) 1+H, Urine Ketones Negative, Urine Blood 3+H, Urine Nitrite Negative, Urine Bilirubin Negative, Urine Urobilinogen Normal, Urine Leukocyte Esterase 3+H, Urine RBC 2- 4H, Urine WBC 10-15H, Urine Squamous Epithelial Cells None, Urine Bacteria ModerateH, Urine Yeast FewH 03/03/18 09:55: White Blood Count 11.3H, Red Blood Count 2.74L, Hemoglobin 8.3L, Hematocrit 25.9L, Mean Corpuscular Volume 95, Mean Corpuscular Hemoglobin 30.1, Mean Corpuscular Hemoglobin Concent 31.9L, Red Cell Distribution Width 16.5H, Platelet Count 337, Mean Platelet Volume 6.7, Neutrophils (%) (Auto) 80.3H, Lymphocytes (%) (Auto) 9.4L, Monocytes (%) (Auto) 7.7, Eosinophils (%) (Auto) 2.0, Basophils (%) (Auto) 0.6, Sodium Level 142, Potassium Level 3.4L, Chloride Level 114H, Carbon Dioxide Level 12L, Anion Gap 16H, Blood Urea Nitrogen 60H, Creatinine 4.3H, Estimat Glomerular Filtration Rate 14.0, Glucose Level 258#H, Uric Acid [Pending], Calcium Level 7.5L, Phosphorus Level [Pending], Magnesium Level [Pending], Total Bilirubin [Pending], Aspartate Amino Transf (AST/SGOT) [ Pending], Alanine Aminotransferase (ALT/SGPT) [Pending], Alkaline Phosphatase [ Pending], Total Protein [Pending], Albumin [Pending], Globulin [Pending] Height (Feet): 5 Height (Inches): 8.00 Weight (Pounds): 153 General Appearance: no apparent distress Neck: normal alignment Cardiovascular: regular rhythm Respiratory/Chest: lungs clear Abdomen: normal bowel sounds Objective Current Medications Medications (Trade) Dose Ordered Sig/Dunia Route PRN Reason Start Time Stop Time Status Last Admin Dose Admin Bupropion HCl (Wellbutrin XL) 150 mg DAILY ORAL 03/03/18 09:00 04/01/18 08:59 03/03/18 08:37 Dextrose (Dextrose 50%) 25 ml STAT PRN IV Hypoglycemia 03/02/18 16:00 03/30/18 15:59 Dextrose (Dextrose 50%) 50 ml STAT PRN IV Hypoglycemia 03/02/18 16:00 03/30/18 15:59 Duloxetine HCl (Cymbalta) 30 mg DAILY ORAL 03/03/18 09:00 03/31/18 08:59 03/03/18 08:37 Heparin Sodium (Porcine) (Heparin 5000 units/ml) 5,000 units EVERY 12 HOURS SUBQ 03/02/18 21:00 03/31/18 20:59 03/03/18 08:39 Insulin Aspart (NovoLOG) BEFORE MEALS AND HS SUBQ 03/02/18 16:30 03/31/18 06:29 03/03/18 06:06 Insulin Aspart (NovoLOG) 4 units NOVOTIAC SUBQ 03/02/18 16:50 03/31/18 11:49 03/03/18 06:06 Insulin Detemir (Levemir) 9 units Q12HR SUBQ 03/02/18 21:00 03/30/18 21:44 03/03/18 08:40 Meropenem 500 mg/ Sodium Chloride 55 ml @ 110 mls/hr Q24H IVPB 03/02/18 15:00 03/06/18 14:59 03/02/18 15:43 Metoprolol Succinate (Toprol XL) 12.5 mg EVERY 12 HOURS ORAL 03/02/18 21:00 03/31/18 08:59 03/03/18 08:38 Nystatin (Nystop Powder) 1 applic THREE TIMES A DAY TOPIC 03/02/18 18:00 04/01/18 08:59 03/03/18 08:41 Ondansetron HCl (Zofran) 4 mg Q6H PRN ORAL Nausea & Vomiting 03/02/18 16:00 03/30/18 15:59 Pantoprazole (Protonix) 40 mg DAILY ORAL 03/03/18 09:00 04/01/18 11:14 03/03/18 08:38 Polyethylene Glycol (Miralax) 17 gm BEDTIME ORAL 03/02/18 21:00 03/31/18 20:59 03/02/18 20:33 Polyethylene Glycol (Miralax) 17 gm DAILYPRN PRN ORAL Constipation 03/02/18 16:00 03/30/18 15:59 Sevelamer Carbonate (Renvela) 800 mg THREE TIMES A DAY NG 03/02/18 18:00 03/31/18 08:59 03/03/18 08:38 Sodium Bicarbonate 50 ml/ Sodium Chloride 1,050 ml @ 75 mls/hr Q14H IV 03/02/18 22:00 04/01/18 21:59 03/02/18 21:32 Sodium Citrate (Bicitra) 30 ml EVERY 6 HOURS ORAL 03/02/18 18:00 03/31/18 11:59 03/03/18 06:05 Item Value Date Time Bedside Blood Glucose 284 mg/dl H 03/03/18 0840 Bedside Blood Glucose 295 mg/dl H 03/03/18 0630 Bedside Blood Glucose 168 mg/dl H 03/02/18 2100 Bedside Blood Glucose 269 mg/dl H 03/02/18 1715 Bedside Blood Glucose 163 mg/dl H 03/02/18 1201 Bedside Blood Glucose 152 mg/dl H 03/02/18 1003 Mod[place] Jacques MD Mar 03, 2018 10:27
--- NOTE | 2018-03-03 11:16 | Nephrology Progress Note ---
Assessment/Plan Problem List: (1) Anemia in chronic kidney disease (2) Acute on chronic renal failure (3) Psychiatric disturbance (4) Acidosis, metabolic (5) UTI (urinary tract infection) Assessment Acute renal failure on chronic kidney disease Cr lower Metabolic acidosis and HyperGlycemia Recurrent hematuria Probably UTI with a history of recurrent UTI Anemia due to acute blood loss( i.e. hematuria) and CKD Leukocytosis Suprapubic catheter Neurogenic bladder BPH Status post renal pancreatic transplant h/o Elevated lipase Diabetes mellitus type 2 with hx of DKA Hypertension COPD/asthma Coronary artery disease with history of NSTEMI major depressive disorder with history of suicidal attempt encephalopathy Plan adjust BP meds- Hydrate- [place]icar[place] via IV fluids PO Bicitra BS check antibiotics Anemia [place] Gastric support patient DNR monitor renal parameters avoid nephrotoxics dialysis ?? Subjective ROS Limited/Unobtainable: No Constitutional: Reports: malaise Objective Objective Last 24 Hour Vital Signs Date Time Temp Pulse Resp B/P (MAP) Pulse Ox O2 Delivery O2 Flow Rate FiO2 03/03/18 09:00 Room Air 03/03/18 08:38 83 123/73 03/03/18 08:00 97.7 83 20 123/73 (90) 100 97.7 03/03/18 04:00 97.8 71 20 126/55 (78) 100 97.8 03/03/18 00:00 98.2 70 18 107/52 (70) 100 98.2 03/02/18 21:00 Room Air 03/02/18 20:51 61 96/49 03/02/18 20:00 96.7 61 20 96/49 (65) 98 96.7 03/02/18 16:00 98.3 68 18 125/60 (81) 100 98.3 03/02/18 12:00 98.4 78 18 102/50 (67) 100 98.4 03/02/18 12:00 78 Intake and Output 03/02/18 03/03/18 19:00 07:00 Intake Total 760 ml 915 ml Output Total 550 ml 1200 ml Balance 210 ml -285 ml Intake Oral 480 ml 120 ml IV Total 280 ml 795 ml Output Urine Total 550 ml 1200 ml Laboratory Tests 03/02/18 18:35: Urine Color Pale yellow, Urine Appearance Slightly cloudy, Urine pH 8, Urine Specific [place] 1.010, Urine Protein 2+H, Urine Glucose (UA) 1+H, Urine Ketones Negative, Urine Blood 3+H, Urine Nitrite Negative, Urine Bilirubin Negative, Urine Urobilinogen Normal, Urine Leukocyte Esterase 3+H, Urine RBC 2- 4H, Urine WBC 10-15H, Urine Squamous Epithelial Cells None, Urine Bacteria ModerateH, Urine Yeast FewH 03/03/18 09:55: White Blood Count 11.3H, Red Blood Count 2.74L, Hemoglobin 8.3L, Hematocrit 25.9L, Mean Corpuscular Volume 95, Mean Corpuscular Hemoglobin 30.1, Mean Corpuscular Hemoglobin Concent 31.9L, Red Cell Distribution Width 16.5H, Platelet Count 337, Mean Platelet Volume 6.7, Neutrophils (%) (Auto) 80.3H, Lymphocytes (%) (Auto) 9.4L, Monocytes (%) (Auto) 7.7, Eosinophils (%) (Auto) 2.0, Basophils (%) (Auto) 0.6, Sodium Level 142, Potassium Level 3.4L, Chloride Level 114H, Carbon Dioxide Level 12L, Anion Gap 16H, Blood Urea Nitrogen 60H, Creatinine 4.3H, Estimat Glomerular Filtration Rate 14.0, Glucose Level 258#H, Uric Acid 5.9, Calcium Level 7.5L, Phosphorus Level 3.2, Magnesium Level 1.4L, Total Bilirubin 0.3, Aspartate Amino Transf (AST/SGOT) 7L, Alanine Aminotransferase (ALT/SGPT) 8L, Alkaline Phosphatase 62, Total Protein 5.4L, Albumin 1.9L, Globulin 3.5, Albumin/Globulin Ratio 0.5L Height (Feet): 5 Height (Inches): 8.00 Weight (Pounds): 153 General Appearance: no apparent distress, lethargic Respiratory/Chest: decreased breath sounds Abdomen: soft Luis Chambers MD Mar 03, 2018 11:16
--- NOTE | 2018-03-03 11:59 | Infectious Diseases Prog Note ---
Assessment/Plan Assessment/Plan Assessment: Leukocytosis; improving- r/o UTI, PNA, bacteremia -u/a wbc 10-15, nit neg, leuk +3; ucx ABC (S Zosyn, Imipenem), S.aureus -Bcx NTD -CXR: no acute process RIVKA on CKD ANion gap metabolic acidosis DKA (+acetones) FTT -Recent probable Providencia UTI s/p Rx (early february 2018) -Hx of recurrent hematuria - hx of probable ESBL P. mirabilis UTI s/p Rx 11/2017 -. hx of hematuria, penile extensive hemorrhage with surrounding cellulitis 2016, s/p Rx -s/p suprapubic cystostomy 09/28; re inserted 10/01 after patient pull it off -. History of coag-negative Staph bacteremia in July 2007, AMY was negative for endocarditis (due to bacteremia due to the PICC line infection). -. History of sepsis. -. History of CKD. -. History of renal and pancreas transplant about 10 years ago. -hx of prior HD -. History of enterococcal bacteremia in May 2017. -. History of suicidal attempt. -. History rof VA/CAD. -. Anemia. -. History of colon polyps. -. Hypertension. - Diabetes. Plan: -Continue Meropenem #09/15 For ABC UTI (allergic to Cefepime) and add IV Daptomycin pending S. aureus sensi -monitor CPK -02/28 SP Azithromycin x1 -02/15 SP Ertapenem #10 -12/02 SP Ertapenem #5 -11/29 SP IV Vancomycin #4, -11/28 SP Aztreonam #3 -10/06 SP Doxycycline and Levaquin #4 -10/02 SP IV Vanco/Aztreonam #6 -09/10/17 SP Daptomycin #34 -f/u ucx, Bcx x2 -f/u cx -Monitor CBC/CMP, temperatures -aspiration precautions Thank you for this consultation. Will continue to follow along with you. Discussed with RN. Subjective Allergies: Coded Allergies: CEFEPIME (Verified Allergy, Intermediate, Rash, 03/01/18) Tolerates Carbapenem Subjective afebrile leukocytosis improving Objective Vital Signs Last 24 Hour Vital Signs Date Time Temp Pulse Resp B/P (MAP) Pulse Ox O2 Delivery O2 Flow Rate FiO2 03/03/18 09:00 Room Air 8/23/18 08:38 83 123/73 03/03/18 08:00 97.7 83 20 123/73 (90) 100 97.7 03/03/18 04:00 97.8 71 20 126/55 (78) 100 97.8 03/03/18 00:00 98.2 70 18 107/52 (70) 100 98.2 03/02/18 21:00 Room Air 03/02/18 20:51 61 96/49 03/02/18 20:00 96.7 61 20 96/49 (65) 98 96.7 03/02/18 16:00 98.3 68 18 125/60 (81) 100 98.3 03/02/18 12:00 98.4 78 18 102/50 (67) 100 98.4 03/02/18 12:00 78 Height (Feet): 5 Height (Inches): 8.00 Weight (Pounds): 153 Objective General Appearance: cachetic Lines, tubes and drains: peripheral HEENT: normocephalic Neck: non-tender, normal alignment Respiratory/Chest: chest wall non-tender, lungs clear Cardiovascular/Chest: normal peripheral pulses, normal rate Abdomen: normal bowel sounds Extremities: normal range of motion Skin Exam: normal pigmentation Microbiology Date/Time Source Procedure Growth Status 02/28/18 15:45 Blood Blood Culture - Preliminary NO GROWTH AFTER 48 HOURS Resulted 02/28/18 15:28 Blood Blood Culture - Preliminary NO GROWTH AFTER 48 HOURS Resulted 03/02/18 18:35 Indwelling Cath Urine Culture - Preliminary Resulted 03/01/18 03:30 Urine,Suprapubic Urine Culture - Preliminary Acinetobacter Baumannii Complx Staphylococcus Aureus Resulted 02/28/18 18:45 Rectum - Final NO CARBAPENEM-RESISTANT ENTEROBACTERI... Complete 02/28/18 18:45 Rectum VRE Culture - Final NO VANCOMYCIN RESISTANT ENTEROCOCCUS ... Complete Laboratory Tests Test 03/02/18 18:35 03/03/18 09:55 Urine Color Pale yellow Urine Appearance Slightly cloudy Urine pH 8 (4.5-8.0) Urine Specific [place] 1.010 (1.005-1.035) Urine Protein 2+ (NEGATIVE) H Urine Glucose (UA) 1+ (NEGATIVE) H Urine Ketones Negative (NEGATIVE) Urine Blood 3+ (NEGATIVE) H Urine Nitrite Negative (NEGATIVE) Urine Bilirubin Negative (NEGATIVE) Urine Urobilinogen Normal MG/DL (0.0-1.0) Urine Leukocyte Esterase 3+ (NEGATIVE) H Urine RBC 2-4 /HPF (0 - 0) H Urine WBC 10-15 /HPF (0 - 0) H Urine Squamous Epithelial Cells None /LPF (NONE/OCC) Urine Bacteria Moderate /HPF (NONE) H Urine Yeast Few /HPF (NONE) H White Blood Count 11.3 K/UL (4.8-10.8) H Red Blood Count 2.74 M/UL (4.70-6.10) L Hemoglobin 8.3 G/DL (14.2-18.0) L Hematocrit 25.9 % (42.0-52.0) L Mean Corpuscular Volume 95 FL (80-99) Mean Corpuscular Hemoglobin 30.1 PG (27.0-31.0) Mean Corpuscular Hemoglobin Concent 31.9 G/DL (32.0-36.0) L Red Cell Distribution Width 16.5 % (11.6-14.8) H Platelet Count 337 K/UL (150-450) Mean Platelet Volume 6.7 FL (6.5-10.1) Neutrophils (%) (Auto) 80.3 % (45.0-75.0) H Lymphocytes (%) (Auto) 9.4 % (20.0-45.0) L Monocytes (%) (Auto) 7.7 % (1.0-10.0) Eosinophils (%) (Auto) 2.0 % (0.0-3.0) Basophils (%) (Auto) 0.6 % (0.0-2.0) Sodium Level 142 MMOL/L (136-145) Potassium Level 3.4 MMOL/L (3.5-5.1) L Chloride Level 114 MMOL/L (98-107) H Carbon Dioxide Level 12 MMOL/L (21-32) L Anion Gap 16 mmol/L (5-15) H Blood Urea Nitrogen 60 mg/dL (7-18) H Creatinine 4.3 MG/DL (0.55-1.30) H Estimat Glomerular Filtration Rate 14.0 mL/min (>60) Glucose Level 258 MG/DL (74-106) #H Uric Acid 5.9 MG/DL (2.6-7.2) Calcium Level 7.5 MG/DL (8.5-10.1) L Phosphorus Level 3.2 MG/DL (2.5-4.9) Magnesium Level 1.4 MG/DL (1.8-2.4) L Total Bilirubin 0.3 MG/DL (0.2-1.0) Aspartate Amino Transf (AST/SGOT) 7 U/L (15-37) L Alanine Aminotransferase (ALT/SGPT) 8 U/L (12-78) L Alkaline Phosphatase 62 U/L (46-116) Total Protein 5.4 G/DL (6.4-8.2) L Albumin 1.9 G/DL (3.4-5.0) L Globulin 3.5 g/dL Albumin/Globulin Ratio 0.5 (1.0-2.7) L Current Medications Medications (Trade) Dose Ordered Sig/Dunia Route PRN Reason Start Time Stop Time Status Last Admin Dose Admin Bupropion HCl (Wellbutrin XL) 150 mg DAILY ORAL 03/03/18 09:00 04/01/18 08:59 03/03/18 08:37 Dextrose (Dextrose 50%) 25 ml STAT PRN IV Hypoglycemia 03/02/18 16:00 03/30/18 15:59 Dextrose (Dextrose 50%) 50 ml STAT PRN IV Hypoglycemia 03/02/18 16:00 03/30/18 15:59 Duloxetine HCl (Cymbalta) 30 mg DAILY ORAL 03/03/18 09:00 03/31/18 08:59 03/03/18 08:37 Heparin Sodium (Porcine) (Heparin 5000 units/ml) 5,000 units EVERY 12 HOURS SUBQ 03/02/18 21:00 03/31/18 20:59 03/03/18 08:39 Insulin Aspart (NovoLOG) BEFORE MEALS AND HS SUBQ 03/02/18 16:30 03/31/18 06:29 03/03/18 06:06 Insulin Aspart (NovoLOG) 4 units NOVOTIAC SUBQ 03/02/18 16:50 03/31/18 11:49 03/03/18 06:06 Insulin Detemir (Levemir) 10 units Q12HR SUBQ 03/03/18 21:00 03/30/18 21:44 Magnesium Sulfate 100 ml @ 100 mls/hr Q1H IVPB 03/03/18 12:00 03/03/18 13:59 Meropenem 500 mg/ Sodium Chloride 55 ml @ 110 mls/hr Q24H IVPB 03/02/18 15:00 03/06/18 14:59 03/02/18 15:43 Metoprolol Succinate (Toprol XL) 12.5 mg EVERY 12 HOURS ORAL 03/02/18 21:00 03/31/18 08:59 03/03/18 08:38 Nystatin (Nystop Powder) 1 applic THREE TIMES A DAY TOPIC 03/02/18 18:00 04/01/18 08:59 03/03/18 08:41 Ondansetron HCl (Zofran) 4 mg Q6H PRN ORAL Nausea & Vomiting 03/02/18 16:00 03/30/18 15:59 Pantoprazole (Protonix) 40 mg DAILY ORAL 03/03/18 09:00 04/01/18 11:14 03/03/18 08:38 Polyethylene Glycol (Miralax) 17 gm BEDTIME ORAL 03/02/18 21:00 03/31/18 20:59 03/02/18 20:33 Polyethylene Glycol (Miralax) 17 gm DAILYPRN PRN ORAL Constipation 03/02/18 16:00 03/30/18 15:59 Sodium Bicarbonate 50 ml/ Sodium Chloride 1,050 ml @ 75 mls/hr Q14H IV 03/02/18 22:00 04/01/18 21:59 03/02/18 21:32 Sodium Citrate (Bicitra) 30 ml EVERY 6 HOURS ORAL 03/02/18 18:00 03/31/18 11:59 03/03/18 06:05 Monique Read M.D. Mar 03, 2018 11:59
[2018-03-03 12:00] VITALS: BP 137/78
[2018-03-03] MEDS: Sodium Bicarbonate 50 ML in 1/2 NS 1000ml 1,000 ML IV SCH (12:01)
--- NOTE | 2018-03-03 12:30 | Pulmonology Progress Note ---
Assessment/Plan Problems: (1) ATN (acute tubular necrosis) (2) Acute on chronic renal failure (3) Pulmonary HTN (4) HTN (hypertension) (5) Diabetes mellitus out of control (6) Psychiatric disturbance (7) Kidney transplant status (8) BPH (benign prostatic hypertrophy) Assessment/Plan improving slowly still severely depressed wound never agree to HD bun/creatinine less symptomatic treatment psychology evaluation appreciated consider comfort care. Pt is admitted 7 times this year only to [place]. ( might have been admitted a few times to [facility] as well)/ Subjective ROS Limited/Unobtainable: No Constitutional: Reports: no symptoms HEENT: Repors: no symptoms Respiratory: Reports: no symptoms Allergies: Coded Allergies: CEFEPIME (Verified Allergy, Intermediate, Rash, 03/01/18) Tolerates Carbapenem Objective Last 24 Hour Vital Signs Date Time Temp Pulse Resp B/P (MAP) Pulse Ox O2 Delivery O2 Flow Rate FiO2 03/03/18 12:00 97.6 83 20 137/78 (97) 100 97.6 03/03/18 09:00 Room Air 03/03/18 08:38 83 123/73 03/03/18 08:00 97.7 83 20 123/73 (90) 100 97.7 03/03/18 04:00 97.8 71 20 126/55 (78) 100 97.8 03/03/18 00:00 98.2 70 18 107/52 (70) 100 98.2 03/02/18 21:00 Room Air 03/02/18 20:51 61 96/49 03/02/18 20:00 96.7 61 20 96/49 (65) 98 96.7 03/02/18 16:00 98.3 68 18 125/60 (81) 100 98.3 Intake and Output 03/02/18 03/03/18 19:00 07:00 Intake Total 760 ml 915 ml Output Total 550 ml 1200 ml Balance 210 ml -285 ml Intake Oral 480 ml 120 ml IV Total 280 ml 795 ml Output Urine Total 550 ml 1200 ml General Appearance: WD/WN HEENT: normocephalic, atraumatic Respiratory/Chest: chest wall non-tender, lungs clear Cardiovascular: normal peripheral pulses, normal rate Abdomen: normal bowel sounds, soft, non tender, no organomegaly Genitourinary: normal external genitalia Skin: no rash Microbiology Date/Time Source Procedure Growth Status 02/28/18 15:45 Blood Blood Culture - Preliminary NO GROWTH AFTER 48 HOURS Resulted 02/28/18 15:28 Blood Blood Culture - Preliminary NO GROWTH AFTER 48 HOURS Resulted 03/02/18 18:35 Indwelling Cath Urine Culture - Preliminary Resulted 03/01/18 03:30 Urine,Suprapubic Urine Culture - Preliminary Acinetobacter Baumannii Complx Staphylococcus Aureus Resulted 02/28/18 18:45 Rectum - Final NO CARBAPENEM-RESISTANT ENTEROBACTERI... Complete 02/28/18 18:45 Rectum VRE Culture - Final NO VANCOMYCIN RESISTANT ENTEROCOCCUS ... Complete Laboratory Tests 03/02/18 18:35: Urine Color Pale yellow, Urine Appearance Slightly cloudy, Urine pH 8, Urine Specific [place] 1.010, Urine Protein 2+H, Urine Glucose (UA) 1+H, Urine Ketones Negative, Urine Blood 3+H, Urine Nitrite Negative, Urine Bilirubin Negative, Urine Urobilinogen Normal, Urine Leukocyte Esterase 3+H, Urine RBC 2- 4H, Urine WBC 10-15H, Urine Squamous Epithelial Cells None, Urine Bacteria ModerateH, Urine Yeast FewH 03/03/18 09:55: White Blood Count 11.3H, Red Blood Count 2.74L, Hemoglobin 8.3L, Hematocrit 25.9L, Mean Corpuscular Volume 95, Mean Corpuscular Hemoglobin 30.1, Mean Corpuscular Hemoglobin Concent 31.9L, Red Cell Distribution Width 16.5H, Platelet Count 337, Mean Platelet Volume 6.7, Neutrophils (%) (Auto) 80.3H, Lymphocytes (%) (Auto) 9.4L, Monocytes (%) (Auto) 7.7, Eosinophils (%) (Auto) 2.0, Basophils (%) (Auto) 0.6, Sodium Level 142, Potassium Level 3.4L, Chloride Level 114H, Carbon Dioxide Level 12L, Anion Gap 16H, Blood Urea Nitrogen 60H, Creatinine 4.3H, Estimat Glomerular Filtration Rate 14.0, Glucose Level 258#H, Uric Acid 5.9, Calcium Level 7.5L, Phosphorus Level 3.2, Magnesium Level 1.4L, Total Bilirubin 0.3, Aspartate Amino Transf (AST/SGOT) 7L, Alanine Aminotransferase (ALT/SGPT) 8L, Alkaline Phosphatase 62, Total Protein 5.4L, Albumin 1.9L, Globulin 3.5, Albumin/Globulin Ratio 0.5L Current Medications Medications (Trade) Dose Ordered Sig/Dunia Route PRN Reason Start Time Stop Time Status Last Admin Dose Admin Bupropion HCl (Wellbutrin XL) 150 mg DAILY ORAL 03/03/18 09:00 04/01/18 08:59 03/03/18 08:37 Daptomycin 300 mg/ Sodium Chloride 55 ml @ 100 mls/hr EVERY OTHER DAY IV 03/03/18 14:00 03/10/18 13:59 Dextrose (Dextrose 50%) 25 ml STAT PRN IV Hypoglycemia 03/02/18 16:00 03/30/18 15:59 Dextrose (Dextrose 50%) 50 ml STAT PRN IV Hypoglycemia 03/02/18 16:00 03/30/18 15:59 Duloxetine HCl (Cymbalta) 30 mg DAILY ORAL 03/03/18 09:00 03/31/18 08:59 03/03/18 08:37 Heparin Sodium (Porcine) (Heparin 5000 units/ml) 5,000 units EVERY 12 HOURS SUBQ 03/02/18 21:00 03/31/18 20:59 03/03/18 08:39 Insulin Aspart (NovoLOG) BEFORE MEALS AND HS SUBQ 03/02/18 16:30 03/31/18 06:29 03/03/18 11:59 Insulin Aspart (NovoLOG) 4 units NOVOTIAC SUBQ 03/02/18 16:50 03/31/18 11:49 03/03/18 11:59 Insulin Detemir (Levemir) 10 units Q12HR SUBQ 03/03/18 21:00 03/30/18 21:44 Magnesium Sulfate 100 ml @ 100 mls/hr Q1H IVPB 03/03/18 12:00 03/03/18 13:59 03/03/18 12:01 Meropenem 500 mg/ Sodium Chloride 55 ml @ 110 mls/hr Q24H IVPB 03/02/18 15:00 03/06/18 14:59 03/02/18 15:43 Metoprolol Succinate (Toprol XL) 12.5 mg EVERY 12 HOURS ORAL 03/02/18 21:00 03/31/18 08:59 03/03/18 08:38 Nystatin (Nystop Powder) 1 applic THREE TIMES A DAY TOPIC 03/02/18 18:00 04/01/18 08:59 03/03/18 12:01 Ondansetron HCl (Zofran) 4 mg Q6H PRN ORAL Nausea & Vomiting 03/02/18 16:00 03/30/18 15:59 Pantoprazole (Protonix) 40 mg DAILY ORAL 03/03/18 09:00 04/01/18 11:14 03/03/18 08:38 Polyethylene Glycol (Miralax) 17 gm BEDTIME ORAL 03/02/18 21:00 03/31/18 20:59 03/02/18 20:33 Polyethylene Glycol (Miralax) 17 gm DAILYPRN PRN ORAL Constipation 03/02/18 16:00 03/30/18 15:59 Sodium Bicarbonate 50 ml/ Sodium Chloride 1,050 ml @ 75 mls/hr Q14H IV 03/02/18 22:00 04/01/18 21:59 03/03/18 12:01 Sodium Citrate (Bicitra) 30 ml EVERY 6 HOURS ORAL 03/02/18 18:00 03/31/18 11:59 03/03/18 11:57 Esdras Delgado MD Mar 03, 2018 12:30
[2018-03-03] MEDS ORDERED: DAPTOmycin 300 MG in NS 55 ML IV SCH (14:00)
[2018-03-03] MEDS: Meropenem 500 MG in NS 55 ML IVPB SCH (15:27)
[2018-03-03 16:00] VITALS: BP 130/78
--- NOTE | 2018-03-03 18:06 | Internal Med Progress Note ---
Subjective Date of Service: Mar 03, 2018 Physician Name Jose Glasgow Attending Physician Christopher Rosado MD Current Medications Medications (Trade) Dose Ordered Sig/Dunia Route PRN Reason Start Time Stop Time Status Last Admin Dose Admin Bupropion HCl (Wellbutrin XL) 150 mg DAILY ORAL 03/03/18 09:00 04/01/18 08:59 03/03/18 08:37 Daptomycin 300 mg/ Sodium Chloride 55 ml @ 100 mls/hr EVERY OTHER DAY IV 03/03/18 14:00 03/10/18 13:59 03/03/18 14:27 Dextrose (Dextrose 50%) 25 ml STAT PRN IV Hypoglycemia 03/02/18 16:00 03/30/18 15:59 Dextrose (Dextrose 50%) 50 ml STAT PRN IV Hypoglycemia 03/02/18 16:00 03/30/18 15:59 Duloxetine HCl (Cymbalta) 30 mg DAILY ORAL 03/03/18 09:00 03/31/18 08:59 03/03/18 08:37 Heparin Sodium (Porcine) (Heparin 5000 units/ml) 5,000 units EVERY 12 HOURS SUBQ 03/02/18 21:00 03/31/18 20:59 03/03/18 08:39 Insulin Aspart (NovoLOG) BEFORE MEALS AND HS SUBQ 03/02/18 16:30 03/31/18 06:29 03/03/18 11:59 Insulin Aspart (NovoLOG) 4 units NOVOTIAC SUBQ 03/02/18 16:50 03/31/18 11:49 03/03/18 11:59 Insulin Detemir (Levemir) 10 units Q12HR SUBQ 03/03/18 21:00 03/30/18 21:44 Meropenem 500 mg/ Sodium Chloride 55 ml @ 110 mls/hr Q24H IVPB 03/02/18 15:00 03/06/18 14:59 03/03/18 15:27 Metoprolol Succinate (Toprol XL) 12.5 mg EVERY 12 HOURS ORAL 03/02/18 21:00 03/31/18 08:59 03/03/18 08:38 Nystatin (Nystop Powder) 1 applic THREE TIMES A DAY TOPIC 03/02/18 18:00 04/01/18 08:59 03/03/18 18:02 Ondansetron HCl (Zofran) 4 mg Q6H PRN ORAL Nausea & Vomiting 03/02/18 16:00 03/30/18 15:59 Pantoprazole (Protonix) 40 mg DAILY ORAL 03/03/18 09:00 04/01/18 11:14 03/03/18 08:38 Polyethylene Glycol (Miralax) 17 gm BEDTIME ORAL 03/02/18 21:00 03/31/18 20:59 03/02/18 20:33 Polyethylene Glycol (Miralax) 17 gm DAILYPRN PRN ORAL Constipation 03/02/18 16:00 03/30/18 15:59 Sodium Bicarbonate 50 ml/ Sodium Chloride 1,050 ml @ 75 mls/hr Q14H IV 03/02/18 22:00 04/01/18 21:59 03/03/18 12:01 Sodium Citrate (Bicitra) 30 ml EVERY 6 HOURS ORAL 03/02/18 18:00 03/31/18 11:59 03/03/18 18:02 Allergies: Coded Allergies: CEFEPIME (Verified Allergy, Intermediate, Rash, 03/01/18) Tolerates Carbapenem ROS Limited/Unobtainable: No Constitutional: Reports: no symptoms HEENT: Reports: no symptoms Cardiovascular: Reports: no symptoms Respiratory: Reports: no symptoms Gastrointestinal/Abdominal: Reports: no symptoms Genitourinary: Reports: no symptoms Neurologic/Psychiatric: Reports: no symptoms Subjective 62 YO M admitted with failure to thrive. Now UTI. Cover for Int Pierre-Dr Rosado Objective Last Vital Signs Date Time Temp Pulse Resp B/P (MAP) Pulse Ox O2 Delivery O2 Flow Rate FiO2 03/03/18 16:00 97.8 81 20 130/78 (95) 100 97.8 03/03/18 09:00 Room Air Laboratory Tests Test 03/02/18 18:35 03/03/18 09:55 Urine Color Pale yellow Urine Appearance Slightly cloudy Urine pH 8 (4.5-8.0) Urine Specific [place] 1.010 (1.005-1.035) Urine Protein 2+ (NEGATIVE) H Urine Glucose (UA) 1+ (NEGATIVE) H Urine Ketones Negative (NEGATIVE) Urine Blood 3+ (NEGATIVE) H Urine Nitrite Negative (NEGATIVE) Urine Bilirubin Negative (NEGATIVE) Urine Urobilinogen Normal MG/DL (0.0-1.0) Urine Leukocyte Esterase 3+ (NEGATIVE) H Urine RBC 2-4 /HPF (0 - 0) H Urine WBC 10-15 /HPF (0 - 0) H Urine Squamous Epithelial Cells None /LPF (NONE/OCC) Urine Bacteria Moderate /HPF (NONE) H Urine Yeast Few /HPF (NONE) H White Blood Count 11.3 K/UL (4.8-10.8) H Red Blood Count 2.74 M/UL (4.70-6.10) L Hemoglobin 8.3 G/DL (14.2-18.0) L Hematocrit 25.9 % (42.0-52.0) L Mean Corpuscular Volume 95 FL (80-99) Mean Corpuscular Hemoglobin 30.1 PG (27.0-31.0) Mean Corpuscular Hemoglobin Concent 31.9 G/DL (32.0-36.0) L Red Cell Distribution Width 16.5 % (11.6-14.8) H Platelet Count 337 K/UL (150-450) Mean Platelet Volume 6.7 FL (6.5-10.1) Neutrophils (%) (Auto) 80.3 % (45.0-75.0) H Lymphocytes (%) (Auto) 9.4 % (20.0-45.0) L Monocytes (%) (Auto) 7.7 % (1.0-10.0) Eosinophils (%) (Auto) 2.0 % (0.0-3.0) Basophils (%) (Auto) 0.6 % (0.0-2.0) Sodium Level 142 MMOL/L (136-145) Potassium Level 3.4 MMOL/L (3.5-5.1) L Chloride Level 114 MMOL/L (98-107) H Carbon Dioxide Level 12 MMOL/L (21-32) L Anion Gap 16 mmol/L (5-15) H Blood Urea Nitrogen 60 mg/dL (7-18) H Creatinine 4.3 MG/DL (0.55-1.30) H Estimat Glomerular Filtration Rate 14.0 mL/min (>60) Glucose Level 258 MG/DL (74-106) #H Uric Acid 5.9 MG/DL (2.6-7.2) Calcium Level 7.5 MG/DL (8.5-10.1) L Phosphorus Level 3.2 MG/DL (2.5-4.9) Magnesium Level 1.4 MG/DL (1.8-2.4) L Total Bilirubin 0.3 MG/DL (0.2-1.0) Aspartate Amino Transf (AST/SGOT) 7 U/L (15-37) L Alanine Aminotransferase (ALT/SGPT) 8 U/L (12-78) L Alkaline Phosphatase 62 U/L (46-116) Total Protein 5.4 G/DL (6.4-8.2) L Albumin 1.9 G/DL (3.4-5.0) L Globulin 3.5 g/dL Albumin/Globulin Ratio 0.5 (1.0-2.7) L Microbiology Date/Time Source Procedure Growth Status 03/02/18 18:35 Indwelling Cath Urine Culture - Preliminary Resulted 03/01/18 03:30 Urine,Suprapubic Urine Culture - Preliminary Acinetobacter Baumannii Complx Staphylococcus Aureus Resulted 02/28/18 18:45 Rectum - Final NO CARBAPENEM-RESISTANT ENTEROBACTERI... Complete 02/28/18 18:45 Rectum VRE Culture - Final NO VANCOMYCIN RESISTANT ENTEROCOCCUS ... Complete Intake and Output 03/02/18 03/03/18 19:00 07:00 Intake Total 760 ml 915 ml Output Total 550 ml 1200 ml Balance 210 ml -285 ml Intake Oral 480 ml 120 ml IV Total 280 ml 795 ml Output Urine Total 550 ml 1200 ml Objective General Appearance: WD/WN, no apparent distress, alert EENT: PERRL/EOMI, normal ENT inspection Neck: non-tender, normal alignment, supple, normal inspection Cardiovascular: normal peripheral pulses, normal rate, regular rhythm, no gallop/murmur, no JVD Respiratory/Chest: chest wall non-tender, lungs clear, normal breath sounds, no respiratory distress, no accessory muscle use Abdomen: normal bowel sounds, non tender, soft, no organomegaly, no mass Extremities: normal range of motion Neurologic: 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 Continue meropenem per ID-see note (3) CKD (chronic kidney disease), stage III (4) BPH (benign prostatic hypertrophy) (5) DM (diabetes mellitus) Assessment & Plan: Continue novolog and levemir insulin (6) HTN (hypertension) Assessment & Plan: continue toprol (7) Coronary heart disease (8) UTI (urinary tract infection) Assessment & Plan: Acenitobacter and Staph Aureus. Cont meropenem per ID Status: progressing Assessment/Plan Discharge planning: [facility] Jose Glasgow MD Mar 03, 2018 18:06
[2018-03-03 20:00] VITALS: BP 98/44
[2018-03-03] MEDS: Miralax 17gm pkt ORAL SCH (20:56)
[2018-03-04] VITALS (7 sets, daily range): BP systolic 97–119; BP diastolic 50–68
[2018-03-04] MEDS: Sodium Citrate 30ml ORAL SCH ×4 (00:09→17:07)
[2018-03-04] MEDS: Sodium Bicarbonate 50 ML in 1/2 NS 1000ml 1,000 ML IV SCH ×2 (02:23→16:19)
[2018-03-04] MEDS: NovoLOG Insulin Flexpen SUBQ SCH ×7 (06:14→20:31)
[2018-03-04 07:26] LABS: EOSINOPHILS % (AUTO) 2.4 % (0.0-3.0); HEMATOCRIT 26.9 % (42.0-52.0); HEMOGLOBIN 8.5 G/DL (14.2-18.0); LYMPHOCYTES % (AUTO) 15.2 % (20.0-45.0); MEAN CORPUSCULAR VOLUME 95 FL (80-99); MONOCYTES % (AUTO) 6.1 % (1.0-10.0); NEUTROPHILS % (AUTO) 75.3 % (45.0-75.0); PLATELET COUNT 356 K/UL (150-450); RED BLOOD COUNT 2.82 M/UL (4.70-6.10); RED CELL DISTRIBUTION WIDTH 17.2 % (11.6-14.8)
[2018-03-04 07:53] LABS: ALANINE AMINOTRANSFERASE 8 U/L (12-78); ALBUMIN/GLOBULIN RATIO 0.5 (1.0-2.7); ALKALINE PHOSPHATASE 64 U/L (46-116); ANION GAP 17 mmol/L (5-15); ASPARTATE AMINO TRANSFERASE 6 U/L (15-37); BILIRUBIN,TOTAL 0.3 MG/DL (0.2-1.0); BLOOD UREA NITROGEN 54 mg/dL (7-18); CALCIUM 7.8 MG/DL (8.5-10.1); CARBON DIOXIDE 13 MMOL/L (21-32); CHLORIDE 113 MMOL/L (98-107); CREATINE KINASE 17 U/L (26-308); CREATININE 4.2 MG/DL (0.55-1.30); POTASSIUM 3.2 MMOL/L (3.5-5.1); SODIUM 143 MMOL/L (136-145)
[2018-03-04 08:38] LABS: PHOSPHORUS 4.3 MG/DL (2.5-4.9)
[2018-03-04] MEDS: Metoprolol Succinate XL 25mg tab ORAL SCH ×2 (09:00→20:25)
--- NOTE | 2018-03-04 09:02 | General Progress Note ---
Assessment/Plan Problem List: (1) Diabetes mellitus type 1, uncontrolled ICD Codes: E10.65 - Type 1 diabetes mellitus with hyperglycemia SNOMED: 68258076, 894076628 (2) Failure to thrive SNOMED: 57938026 (3) Renal failure ICD Codes: N19 - Unspecified kidney failure SNOMED: 30747908 (4) Nephropathy, diabetic ICD Codes: E11.21 - Type 2 diabetes mellitus with diabetic nephropathy SNOMED: 599087451 (5) Hyperparathyroidism ICD Codes: E21.3 - Hyperparathyroidism, unspecified SNOMED: 09798462 (6) Blind left eye ICD Codes: H54.40 - Blindness, one eye, unspecified eye SNOMED: 479407885 Assessment/Plan continue Levemir 10 units bid - do NOT unless I am notified continue Novolog 4 units ac tid continue NISS Subjective ROS Limited/Unobtainable: Yes Allergies: Coded Allergies: CEFEPIME (Verified Allergy, Intermediate, Rash, 03/01/18) Tolerates Carbapenem Subjective events noted Objective Last 24 Hour Vital Signs Date Time Temp Pulse Resp B/P (MAP) Pulse Ox O2 Delivery O2 Flow Rate FiO2 03/04/18 08:00 99.2 72 20 97/53 (68) 98 99.2 03/04/18 04:00 98.8 71 20 110/50 (70) 100 98.8 03/04/18 00:00 97.5 69 20 108/50 (69) 100 97.5 03/03/18 21:00 Room Air 03/03/18 21:00 58 98/44 03/03/18 20:00 98.0 58 20 98/44 (62) 98 98.0 03/03/18 16:00 97.8 81 20 130/78 (95) 100 97.8 03/03/18 12:00 97.6 83 20 137/78 (97) 100 97.6 Intake and Output 03/03/18 03/04/18 19:00 07:00 Intake Total 915 ml 945 ml Output Total 750 ml 850 ml Balance 165 ml 95 ml Intake Oral 840 ml 120 ml IV Total 75 ml 825 ml Output Urine Total 750 ml 850 ml Laboratory Tests 03/03/18 09:55: White Blood Count 11.3H, Red Blood Count 2.74L, Hemoglobin 8.3L, Hematocrit 25.9L, Mean Corpuscular Volume 95, Mean Corpuscular Hemoglobin 30.1, Mean Corpuscular Hemoglobin Concent 31.9L, Red Cell Distribution Width 16.5H, Platelet Count 337, Mean Platelet Volume 6.7, Neutrophils (%) (Auto) 80.3H, Lymphocytes (%) (Auto) 9.4L, Monocytes (%) (Auto) 7.7, Eosinophils (%) (Auto) 2.0, Basophils (%) (Auto) 0.6, Sodium Level 142, Potassium Level 3.4L, Chloride Level 114H, Carbon Dioxide Level 12L, Anion Gap 16H, Blood Urea Nitrogen 60H, Creatinine 4.3H, Estimat Glomerular Filtration Rate 14.0, Glucose Level 258#H, Uric Acid 5.9, Calcium Level 7.5L, Phosphorus Level 3.2, Magnesium Level 1.4L, Total Bilirubin 0.3, Aspartate Amino Transf (AST/SGOT) 7L, Alanine Aminotransferase (ALT/SGPT) 8L, Alkaline Phosphatase 62, Total Protein 5.4L, Albumin 1.9L, Globulin 3.5, Albumin/Globulin Ratio 0.5L 03/04/18 06:00: White Blood Count 11.0H, Red Blood Count 2.82L, Hemoglobin 8.5L, Hematocrit 26.9L, Mean Corpuscular Volume 95, Mean Corpuscular Hemoglobin 30.1, Mean Corpuscular Hemoglobin Concent 31.6L, Red Cell Distribution Width 17.2H, Platelet Count 356, Mean Platelet Volume 6.4L, Neutrophils (%) (Auto) 75.3H, Lymphocytes (%) (Auto) 15.2L, Monocytes (%) (Auto) 6.1, Eosinophils (%) (Auto) 2.4, Basophils (%) (Auto) 1.0, Sodium Level 143, Potassium Level 3.2L, Chloride Level 113H, Carbon Dioxide Level 13L, Anion Gap 17H, Blood Urea Nitrogen 54H, Creatinine 4.2H, Estimat Glomerular Filtration Rate 14.4, Glucose Level 128#H, Calcium Level 7.8L, Phosphorus Level 4.3, Magnesium Level 1.6L, Total Bilirubin 0.3, Aspartate Amino Transf (AST/SGOT) 6L, Alanine Aminotransferase (ALT/SGPT) 8L, Alkaline Phosphatase 64, Total Protein 5.7L, Albumin 2.0L, Globulin 3.7, Albumin/Globulin Ratio 0.5L, Total Creatine Kinase 17L Height (Feet): 5 Height (Inches): 8.00 Weight (Pounds): 153 General Appearance: no apparent distress Neck: normal alignment Cardiovascular: normal rate Respiratory/Chest: lungs clear Abdomen: normal bowel sounds Pelvis: normal external exam Objective Current Medications Medications (Trade) Dose Ordered Sig/Dunia Route PRN Reason Start Time Stop Time Status Last Admin Dose Admin Bupropion HCl (Wellbutrin XL) 150 mg DAILY ORAL 03/03/18 09:00 04/01/18 08:59 03/03/18 08:37 Daptomycin 300 mg/ Sodium Chloride 55 ml @ 100 mls/hr EVERY OTHER DAY IV 03/03/18 14:00 03/10/18 13:59 03/03/18 14:27 Dextrose (Dextrose 50%) 25 ml STAT PRN IV Hypoglycemia 03/02/18 16:00 03/30/18 15:59 Dextrose (Dextrose 50%) 50 ml STAT PRN IV Hypoglycemia 03/02/18 16:00 03/30/18 15:59 Duloxetine HCl (Cymbalta) 30 mg DAILY ORAL 03/03/18 09:00 03/31/18 08:59 03/03/18 08:37 Heparin Sodium (Porcine) (Heparin 5000 units/ml) 5,000 units EVERY 12 HOURS SUBQ 03/02/18 21:00 03/31/18 20:59 03/03/18 20:57 Insulin Aspart (NovoLOG) BEFORE MEALS AND HS SUBQ 03/02/18 16:30 03/31/18 06:29 03/04/18 06:14 Insulin Aspart (NovoLOG) 4 units NOVOTIAC SUBQ 03/02/18 16:50 03/31/18 11:49 03/04/18 06:14 Insulin Detemir (Levemir) 10 units Q12HR SUBQ 03/03/18 21:00 03/30/18 21:44 03/03/18 20:59 Meropenem 500 mg/ Sodium Chloride 55 ml @ 110 mls/hr Q24H IVPB 03/02/18 15:00 03/06/18 14:59 03/03/18 15:27 Metoprolol Succinate (Toprol XL) 12.5 mg EVERY 12 HOURS ORAL 03/02/18 21:00 03/31/18 08:59 03/03/18 08:38 Nystatin (Nystop Powder) 1 applic THREE TIMES A DAY TOPIC 03/02/18 18:00 04/01/18 08:59 03/03/18 18:02 Ondansetron HCl (Zofran) 4 mg Q6H PRN ORAL Nausea & Vomiting 03/02/18 16:00 03/30/18 15:59 Pantoprazole (Protonix) 40 mg DAILY ORAL 03/03/18 09:00 04/01/18 11:14 03/03/18 08:38 Polyethylene Glycol (Miralax) 17 gm BEDTIME ORAL 03/02/18 21:00 03/31/18 20:59 03/03/18 20:56 Polyethylene Glycol (Miralax) 17 gm DAILYPRN PRN ORAL Constipation 03/02/18 16:00 03/30/18 15:59 Potassium Chloride (K-Dur) 40 meq ONCE ORAL 03/04/18 09:00 03/04/18 11:00 Sodium Bicarbonate 50 ml/ Sodium Chloride 1,050 ml @ 75 mls/hr Q14H IV 03/02/18 22:00 04/01/18 21:59 03/04/18 02:23 Sodium Citrate (Bicitra) 30 ml EVERY 6 HOURS ORAL 03/02/18 18:00 03/31/18 11:59 03/04/18 06:07 Item Value Date Time Bedside Blood Glucose 136 mg/dl H 03/04/18 0630 Bedside Blood Glucose 418 mg/dl H 03/03/18 2100 Bedside Blood Glucose 274 mg/dl H 03/03/18 1650 Bedside Blood Glucose 284 mg/dl H 03/03/18 1159 Bedside Blood Glucose 284 mg/dl H 03/03/18 0840 Bedside Blood Glucose 295 mg/dl H 03/03/18 0630 Modesto Jacques MD Mar 04, 2018 09:02
[2018-03-04] MEDS: BuPROPion XL 150mg tab ORAL SCH (09:46)
[2018-03-04] MEDS: DULoxetine 30mg cap ORAL SCH (09:46)
[2018-03-04] MEDS: Heparin 5000 units/ml inj SUBQ SCH ×2 (09:48→20:27)
[2018-03-04] MEDS: Levemir Flexpen SUBQ SCH ×2 (09:50→20:29)
[2018-03-04] MEDS: Nystatin Powder 100,000 units/gm 15gm TOPIC SCH ×3 (09:51→17:07)
--- NOTE | 2018-03-04 12:24 | Nephrology Progress Note ---
Assessment/Plan Problem List: (1) Anemia in chronic kidney disease (2) Acute on chronic renal failure (3) Psychiatric disturbance (4) Acidosis, metabolic (5) UTI (urinary tract infection) Assessment Acute renal failure on chronic kidney disease Cr lower 5.9 to 4.2 Metabolic acidosis and HyperGlycemia Recurrent hematuria Probably UTI with a history of recurrent UTI Anemia due to acute blood loss( i.e. hematuria) and CKD Leukocytosis Suprapubic catheter Neurogenic bladder BPH Status post renal pancreatic transplant h/o Elevated lipase Diabetes mellitus type 2 with hx of DKA Hypertension COPD/asthma Coronary artery disease with history of NSTEMI major depressive disorder with history of suicidal attempt encephalopathy Plan adjust BP meds- Hydrate- Bicarb via IV fluids PO Bicitra mag and KCL BS check antibiotics Anemia [place] Gastric support patient DNR monitor renal parameters avoid nephrotoxics no dialysis Subjective ROS Limited/Unobtainable: No Constitutional: Reports: malaise, weakness Objective Objective Last 24 Hour Vital Signs Date Time Temp Pulse Resp B/P (MAP) Pulse Ox O2 Delivery O2 Flow Rate FiO2 03/04/18 09:00 Room Air 03/04/18 09:00 72 97/53 03/04/18 08:00 99.2 72 20 97/53 (68) 98 99.2 03/04/18 04:00 98.8 71 20 110/50 (70) 100 98.8 03/04/18 00:00 97.5 69 20 108/50 (69) 100 97.5 03/03/18 21:00 Room Air 03/03/18 21:00 58 98/44 03/03/18 20:00 98.0 58 20 98/44 (62) 98 98.0 03/03/18 16:00 97.8 81 20 130/78 (95) 100 97.8 Intake and Output 03/03/18 03/04/18 19:00 07:00 Intake Total 915 ml 945 ml Output Total 750 ml 850 ml Balance 165 ml 95 ml Intake Oral 840 ml 120 ml IV Total 75 ml 825 ml Output Urine Total 750 ml 850 ml Laboratory Tests 03/04/18 06:00: White Blood Count 11.0H, Red Blood Count 2.82L, Hemoglobin 8.5L, Hematocrit 26.9L, Mean Corpuscular Volume 95, Mean Corpuscular Hemoglobin 30.1, Mean Corpuscular Hemoglobin Concent 31.6L, Red Cell Distribution Width 17.2H, Platelet Count 356, Mean Platelet Volume 6.4L, Neutrophils (%) (Auto) 75.3H, Lymphocytes (%) (Auto) 15.2L, Monocytes (%) (Auto) 6.1, Eosinophils (%) (Auto) 2.4, Basophils (%) (Auto) 1.0, Sodium Level 143, Potassium Level 3.2L, Chloride Level 113H, Carbon Dioxide Level 13L, Anion Gap 17H, Blood Urea Nitrogen 54H, Creatinine 4.2H, Estimat Glomerular Filtration Rate 14.4, Glucose Level 128#H, Calcium Level 7.8L, Phosphorus Level 4.3, Magnesium Level 1.6L, Total Bilirubin 0.3, Aspartate Amino Transf (AST/SGOT) 6L, Alanine Aminotransferase (ALT/SGPT) 8L, Alkaline Phosphatase 64, Total Creatine Kinase 17L, Total Protein 5.7L, Albumin 2.0L, Globulin 3.7, Albumin/Globulin Ratio 0.5L Height (Feet): 5 Height (Inches): 8.00 Weight (Pounds): 153 General Appearance: no apparent distress, lethargic Cardiovascular: normal rate Respiratory/Chest: decreased breath sounds Abdomen: soft Genitourinary/Rectal: other - supra pubic cath Objective no other change Luis Chambers MD Mar 04, 2018 12:24
--- NOTE | 2018-03-04 12:57 | Pulmonology Progress Note ---
Assessment/Plan Problems: (1) ATN (acute tubular necrosis) (2) Acute on chronic renal failure (3) Pulmonary HTN (4) HTN (hypertension) (5) Diabetes mellitus out of control (6) Psychiatric disturbance (7) Kidney transplant status (8) BPH (benign prostatic hypertrophy) Assessment/Plan pt is more awake but confused would never agree with HD improving slowly still severely depressed wound never agree to HD bun/creatinine less symptomatic treatment psychology evaluation appreciated Subjective ROS Limited/Unobtainable: Yes Constitutional: Reports: no symptoms HEENT: Repors: no symptoms Respiratory: Reports: no symptoms Allergies: Coded Allergies: CEFEPIME (Verified Allergy, Intermediate, Rash, 03/01/18) Tolerates Carbapenem Objective Last 24 Hour Vital Signs Date Time Temp Pulse Resp B/P (MAP) Pulse Ox O2 Delivery O2 Flow Rate FiO2 03/04/18 12:00 99.4 78 20 119/64 (82) 99 99.4 03/04/18 09:00 Room Air 03/04/18 09:00 72 97/53 03/04/18 08:00 99.2 72 20 97/53 (68) 98 99.2 03/04/18 04:00 98.8 71 20 110/50 (70) 100 98.8 03/04/18 00:00 97.5 69 20 108/50 (69) 100 97.5 03/03/18 21:00 Room Air 03/03/18 21:00 58 98/44 03/03/18 20:00 98.0 58 20 98/44 (62) 98 98.0 03/03/18 16:00 97.8 81 20 130/78 (95) 100 97.8 Intake and Output 03/03/18 03/04/18 19:00 07:00 Intake Total 915 ml 945 ml Output Total 750 ml 850 ml Balance 165 ml 95 ml Intake Oral 840 ml 120 ml IV Total 75 ml 825 ml Output Urine Total 750 ml 850 ml General Appearance: WD/WN HEENT: normocephalic Respiratory/Chest: chest wall non-tender, lungs clear Cardiovascular: normal peripheral pulses, normal rate Abdomen: normal bowel sounds, soft, non tender Genitourinary: normal external genitalia Extremities: no clubbing Skin: no lesions 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/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 normal Microbiology Date/Time Source Procedure Growth Status 03/02/18 18:35 Indwelling Cath Urine Culture - Preliminary Resulted Laboratory Tests 03/04/18 06:00: White Blood Count 11.0H, Red Blood Count 2.82L, Hemoglobin 8.5L, Hematocrit 26.9L, Mean Corpuscular Volume 95, Mean Corpuscular Hemoglobin 30.1, Mean Corpuscular Hemoglobin Concent 31.6L, Red Cell Distribution Width 17.2H, Platelet Count 356, Mean Platelet Volume 6.4L, Neutrophils (%) (Auto) 75.3H, Lymphocytes (%) (Auto) 15.2L, Monocytes (%) (Auto) 6.1, Eosinophils (%) (Auto) 2.4, Basophils (%) (Auto) 1.0, Sodium Level 143, Potassium Level 3.2L, Chloride Level 113H, Carbon Dioxide Level 13L, Anion Gap 17H, Blood Urea Nitrogen 54H, Creatinine 4.2H, Estimat Glomerular Filtration Rate 14.4, Glucose Level 128#H, Calcium Level 7.8L, Phosphorus Level 4.3, Magnesium Level 1.6L, Total Bilirubin 0.3, Aspartate Amino Transf (AST/SGOT) 6L, Alanine Aminotransferase (ALT/SGPT) 8L, Alkaline Phosphatase 64, Total Creatine Kinase 17L, Total Protein 5.7L, Albumin 2.0L, Globulin 3.7, Albumin/Globulin Ratio 0.5L Current Medications Medications (Trade) Dose Ordered Sig/Dunia Route PRN Reason Start Time Stop Time Status Last Admin Dose Admin Bupropion HCl (Wellbutrin XL) 150 mg DAILY ORAL 03/03/18 09:00 04/01/18 08:59 03/04/18 09:46 Daptomycin 300 mg/ Sodium Chloride 55 ml @ 100 mls/hr EVERY OTHER DAY IV 03/03/18 14:00 03/10/18 13:59 03/03/18 14:27 Dextrose (Dextrose 50%) 25 ml STAT PRN IV Hypoglycemia 03/02/18 16:00 03/30/18 15:59 Dextrose (Dextrose 50%) 50 ml STAT PRN IV Hypoglycemia 03/02/18 16:00 03/30/18 15:59 Duloxetine HCl (Cymbalta) 30 mg DAILY ORAL 03/03/18 09:00 03/31/18 08:59 03/04/18 09:46 Heparin Sodium (Porcine) (Heparin 5000 units/ml) 5,000 units EVERY 12 HOURS SUBQ 03/02/18 21:00 03/31/18 20:59 03/04/18 09:48 Insulin Aspart (NovoLOG) BEFORE MEALS AND HS SUBQ 03/02/18 16:30 03/31/18 06:29 03/04/18 12:05 Insulin Aspart (NovoLOG) 4 units NOVOTIAC SUBQ 03/02/18 16:50 03/31/18 11:49 03/04/18 12:04 Insulin Detemir (Levemir) 10 units Q12HR SUBQ 03/03/18 21:00 03/30/18 21:44 03/04/18 09:50 Magnesium Sulfate 100 ml @ 100 mls/hr Q1H IVPB 03/04/18 13:00 03/04/18 14:59 Meropenem 500 mg/ Sodium Chloride 55 ml @ 110 mls/hr Q24H IVPB 03/02/18 15:00 03/06/18 14:59 03/03/18 15:27 Metoprolol Succinate (Toprol XL) 12.5 mg EVERY 12 HOURS ORAL 03/02/18 21:00 03/31/18 08:59 03/03/18 08:38 Nystatin (Nystop Powder) 1 applic THREE TIMES A DAY TOPIC 03/02/18 18:00 04/01/18 08:59 03/04/18 09:51 Ondansetron HCl (Zofran) 4 mg Q6H PRN ORAL Nausea & Vomiting 03/02/18 16:00 03/30/18 15:59 Pantoprazole (Protonix) 40 mg DAILY ORAL 03/03/18 09:00 04/01/18 11:14 03/04/18 09:46 Polyethylene Glycol (Miralax) 17 gm BEDTIME ORAL 03/02/18 21:00 03/31/18 20:59 03/03/18 20:56 Polyethylene Glycol (Miralax) 17 gm DAILYPRN PRN ORAL Constipation 03/02/18 16:00 03/30/18 15:59 Sodium Bicarbonate 50 ml/ Sodium Chloride 1,050 ml @ 75 mls/hr Q14H IV 03/02/18 22:00 04/01/18 21:59 03/04/18 02:23 Sodium Citrate (Bicitra) 30 ml EVERY 6 HOURS ORAL 03/02/18 18:00 03/31/18 11:59 03/04/18 12:06 Esdras Delgado MD Mar 04, 2018 12:57
[2018-03-04] MEDS: Meropenem 500 MG in NS 55 ML IVPB SCH (14:16)
--- NOTE | 2018-03-04 17:40 | Infectious Diseases Prog Note ---
Assessment/Plan Assessment/Plan Assessment: Leukocytosis; improving- likely UTI -u/a wbc 10-15, nit neg, leuk +3; ucx ABC (S Zosyn, Imipenem), MRSA -Bcx NTD -CXR: no acute process RIVKA on CKD ANion gap metabolic acidosis DKA (+acetones) FTT -Recent probable Providencia UTI s/p Rx (early february 2018) -Hx of recurrent hematuria - hx of probable ESBL P. mirabilis UTI s/p Rx 11/2017 -. hx of hematuria, penile extensive hemorrhage with surrounding cellulitis 2016, s/p Rx -s/p suprapubic cystostomy 09/28; re inserted 10/01 after patient pull it off -. History of coag-negative Staph bacteremia in July 2007, AMY was negative for endocarditis (due to bacteremia due to the PICC line infection). -. History of sepsis. -. History of CKD. -. History of renal and pancreas transplant about 10 years ago. -hx of prior HD -. History of enterococcal bacteremia in May 2017. -. History of suicidal attempt. -. History rof MT/CAD. -. Anemia. -. History of colon polyps. -. Hypertension. - Diabetes. Plan: -Continue Meropenem #/ For ABC UTI (allergic to Cefepime) and IV Daptomycin #2 / for probable MRSA UTI in the setting of suprapubic catheter -monitor CPK -02/28 SP Azithromycin x1 -02/15 SP Ertapenem #10 -12/02 SP Ertapenem #5 -11/29 SP IV Vancomycin #4, -11/28 SP Aztreonam #3 -10/06 SP Doxycycline and Levaquin #4 -10/02 SP IV Vanco/Aztreonam #6 -09/10/17 SP Daptomycin #34 -f/u ucx, Bcx x2 -f/u cx -Monitor CBC/CMP, temperatures -aspiration precautions Thank you for this consultation. Will continue to follow along with you. Discussed with RN. Subjective Allergies: Coded Allergies: CEFEPIME (Verified Allergy, Intermediate, Rash, 03/01/18) Tolerates Carbapenem Subjective afebrile leukocytosis improving Objective Vital Signs Last 24 Hour Vital Signs Date Time Temp Pulse Resp B/P (MAP) Pulse Ox O2 Delivery O2 Flow Rate FiO2 03/04/18 16:00 98.5 76 20 97/56 (70) 99 98.5 03/04/18 12:00 99.4 78 20 119/64 (82) 99 99.4 03/04/18 09:00 Room Air 03/04/18 09:00 72 97/53 03/04/18 08:00 99.2 72 20 97/53 (68) 98 99.2 03/04/18 04:00 98.8 71 20 110/50 (70) 100 98.8 03/04/18 00:00 97.5 69 20 108/50 (69) 100 97.5 03/03/18 21:00 Room Air 03/03/18 21:00 58 98/44 03/03/18 20:00 98.0 58 20 98/44 (62) 98 98.0 Height (Feet): 5 Height (Inches): 8.00 Weight (Pounds): 153 Objective General Appearance: cachetic Lines, tubes and drains: peripheral HEENT: normocephalic Neck: non-tender, normal alignment Respiratory/Chest: chest wall non-tender, lungs clear Cardiovascular/Chest: normal peripheral pulses, normal rate Abdomen: normal bowel sounds Extremities: normal range of motion Skin Exam: normal pigmentation Microbiology Date/Time Source Procedure Growth Status 03/02/18 18:35 Indwelling Cath Urine Culture - Preliminary Resulted Laboratory Tests Test 03/04/18 06:00 White Blood Count 11.0 K/UL (4.8-10.8) H Red Blood Count 2.82 M/UL (4.70-6.10) L Hemoglobin 8.5 G/DL (14.2-18.0) L Hematocrit 26.9 % (42.0-52.0) L Mean Corpuscular Volume 95 FL (80-99) Mean Corpuscular Hemoglobin 30.1 PG (27.0-31.0) Mean Corpuscular Hemoglobin Concent 31.6 G/DL (32.0-36.0) L Red Cell Distribution Width 17.2 % (11.6-14.8) H Platelet Count 356 K/UL (150-450) Mean Platelet Volume 6.4 FL (6.5-10.1) L Neutrophils (%) (Auto) 75.3 % (45.0-75.0) H Lymphocytes (%) (Auto) 15.2 % (20.0-45.0) L Monocytes (%) (Auto) 6.1 % (1.0-10.0) Eosinophils (%) (Auto) 2.4 % (0.0-3.0) Basophils (%) (Auto) 1.0 % (0.0-2.0) Sodium Level 143 MMOL/L (136-145) Potassium Level 3.2 MMOL/L (3.5-5.1) L Chloride Level 113 MMOL/L (98-107) H Carbon Dioxide Level 13 MMOL/L (21-32) L Anion Gap 17 mmol/L (5-15) H Blood Urea Nitrogen 54 mg/dL (7-18) H Creatinine 4.2 MG/DL (0.55-1.30) H Estimat Glomerular Filtration Rate 14.4 mL/min (>60) Glucose Level 128 MG/DL (74-106) #H Calcium Level 7.8 MG/DL (8.5-10.1) L Phosphorus Level 4.3 MG/DL (2.5-4.9) Magnesium Level 1.6 MG/DL (1.8-2.4) L Total Bilirubin 0.3 MG/DL (0.2-1.0) Aspartate Amino Transf (AST/SGOT) 6 U/L (15-37) L Alanine Aminotransferase (ALT/SGPT) 8 U/L (12-78) L Alkaline Phosphatase 64 U/L (46-116) Total Creatine Kinase 17 U/L (26-308) L Total Protein 5.7 G/DL (6.4-8.2) L Albumin 2.0 G/DL (3.4-5.0) L Globulin 3.7 g/dL Albumin/Globulin Ratio 0.5 (1.0-2.7) L Current Medications Medications (Trade) Dose Ordered Sig/Dunia Route PRN Reason Start Time Stop Time Status Last Admin Dose Admin Bupropion HCl (Wellbutrin XL) 150 mg DAILY ORAL 03/03/18 09:00 04/01/18 08:59 03/04/18 09:46 Daptomycin 300 mg/ Sodium Chloride 55 ml @ 100 mls/hr EVERY OTHER DAY IV 03/03/18 14:00 03/10/18 13:59 03/03/18 14:27 Dextrose (Dextrose 50%) 25 ml STAT PRN IV Hypoglycemia 03/02/18 16:00 03/30/18 15:59 Dextrose (Dextrose 50%) 50 ml STAT PRN IV Hypoglycemia 03/02/18 16:00 03/30/18 15:59 Duloxetine HCl (Cymbalta) 30 mg DAILY ORAL 03/03/18 09:00 03/31/18 08:59 03/04/18 09:46 Heparin Sodium (Porcine) (Heparin 5000 units/ml) 5,000 units EVERY 12 HOURS SUBQ 03/02/18 21:00 03/31/18 20:59 03/04/18 09:48 Insulin Aspart (NovoLOG) BEFORE MEALS AND HS SUBQ 03/02/18 16:30 03/31/18 06:29 03/04/18 12:05 Insulin Aspart (NovoLOG) 4 units NOVOTIAC SUBQ 03/02/18 16:50 03/31/18 11:49 03/04/18 12:04 Insulin Detemir (Levemir) 10 units Q12HR SUBQ 03/03/18 21:00 03/30/18 21:44 03/04/18 09:50 Meropenem 500 mg/ Sodium Chloride 55 ml @ 110 mls/hr Q24H IVPB 03/02/18 15:00 03/06/18 14:59 03/04/18 14:16 Metoprolol Succinate (Toprol XL) 12.5 mg EVERY 12 HOURS ORAL 03/02/18 21:00 03/31/18 08:59 03/03/18 08:38 Nystatin (Nystop Powder) 1 applic THREE TIMES A DAY TOPIC 03/02/18 18:00 04/01/18 08:59 03/04/18 12:58 Ondansetron HCl (Zofran) 4 mg Q6H PRN ORAL Nausea & Vomiting 03/02/18 16:00 03/30/18 15:59 Pantoprazole (Protonix) 40 mg DAILY ORAL 03/03/18 09:00 04/01/18 11:14 03/04/18 09:46 Polyethylene Glycol (Miralax) 17 gm BEDTIME ORAL 03/02/18 21:00 03/31/18 20:59 03/03/18 20:56 Polyethylene Glycol (Miralax) 17 gm DAILYPRN PRN ORAL Constipation 03/02/18 16:00 03/30/18 15:59 Sodium Bicarbonate 50 ml/ Sodium Chloride 1,050 ml @ 75 mls/hr Q14H IV 03/02/18 22:00 04/01/18 21:59 03/04/18 16:19 Sodium Citrate (Bicitra) 30 ml EVERY 6 HOURS ORAL 03/02/18 18:00 03/31/18 11:59 03/04/18 12:06 Monique Read M.D. Mar 04, 2018 17:40
[2018-03-04] MEDS ORDERED: DAPTOMYCIN350 MG IV (19:19)
[2018-03-04] MEDS ORDERED: MEROPENEM-500 MG/50 IV (19:19)
--- NOTE | 2018-03-04 19:21 | Internal Med Progress Note ---
Subjective Date of Service: Mar 04, 2018 Physician Name Jose Glasgow Attending Physician Christopher Rosado MD Current Medications Medications (Trade) Dose Ordered Sig/Dunia Route PRN Reason Start Time Stop Time Status Last Admin Dose Admin Bupropion HCl (Wellbutrin XL) 150 mg DAILY ORAL 03/03/18 09:00 04/01/18 08:59 03/04/18 09:46 Daptomycin 300 mg/ Sodium Chloride 55 ml @ 100 mls/hr EVERY OTHER DAY IV 03/03/18 14:00 03/10/18 13:59 03/03/18 14:27 Dextrose (Dextrose 50%) 25 ml STAT PRN IV Hypoglycemia 03/02/18 16:00 03/30/18 15:59 Dextrose (Dextrose 50%) 50 ml STAT PRN IV Hypoglycemia 03/02/18 16:00 03/30/18 15:59 Duloxetine HCl (Cymbalta) 30 mg DAILY ORAL 03/03/18 09:00 03/31/18 08:59 03/04/18 09:46 Heparin Sodium (Porcine) (Heparin 5000 units/ml) 5,000 units EVERY 12 HOURS SUBQ 03/02/18 21:00 03/31/18 20:59 03/04/18 09:48 Insulin Aspart (NovoLOG) BEFORE MEALS AND HS SUBQ 03/02/18 16:30 03/31/18 06:29 03/04/18 12:05 Insulin Aspart (NovoLOG) 4 units NOVOTIAC SUBQ 03/02/18 16:50 03/31/18 11:49 03/04/18 12:04 Insulin Detemir (Levemir) 10 units Q12HR SUBQ 03/03/18 21:00 03/30/18 21:44 03/04/18 09:50 Meropenem 500 mg/ Sodium Chloride 55 ml @ 110 mls/hr Q24H IVPB 03/02/18 15:00 03/06/18 14:59 03/04/18 14:16 Metoprolol Succinate (Toprol XL) 12.5 mg EVERY 12 HOURS ORAL 03/02/18 21:00 03/31/18 08:59 03/03/18 08:38 Nystatin (Nystop Powder) 1 applic THREE TIMES A DAY TOPIC 03/02/18 18:00 04/01/18 08:59 03/04/18 12:58 Ondansetron HCl (Zofran) 4 mg Q6H PRN ORAL Nausea & Vomiting 03/02/18 16:00 03/30/18 15:59 Pantoprazole (Protonix) 40 mg DAILY ORAL 03/03/18 09:00 04/01/18 11:14 03/04/18 09:46 Polyethylene Glycol (Miralax) 17 gm BEDTIME ORAL 03/02/18 21:00 03/31/18 20:59 03/03/18 20:56 Polyethylene Glycol (Miralax) 17 gm DAILYPRN PRN ORAL Constipation 03/02/18 16:00 03/30/18 15:59 Sodium Bicarbonate 50 ml/ Sodium Chloride 1,050 ml @ 75 mls/hr Q14H IV 03/02/18 22:00 04/01/18 21:59 03/04/18 16:19 Sodium Citrate (Bicitra) 30 ml EVERY 6 HOURS ORAL 03/02/18 18:00 03/31/18 11:59 03/04/18 12:06 Allergies: Coded Allergies: CEFEPIME (Verified Allergy, Intermediate, Rash, 03/01/18) Tolerates Carbapenem ROS Limited/Unobtainable: No Constitutional: Reports: no symptoms HEENT: Reports: no symptoms Cardiovascular: Reports: no symptoms Respiratory: Reports: no symptoms Gastrointestinal/Abdominal: Reports: no symptoms Genitourinary: Reports: no symptoms Neurologic/Psychiatric: Reports: no symptoms Subjective 62 YO M admitted with failure to thrive. Now UTI. Cover for Int Pierre-Dr Rosado. Await transfer to [facility] Objective Last Vital Signs Date Time Temp Pulse Resp B/P (MAP) Pulse Ox O2 Delivery O2 Flow Rate FiO2 03/04/18 16:00 98.5 76 20 97/56 (70) 99 98.5 03/04/18 09:00 Room Air Laboratory Tests Test 03/04/18 06:00 White Blood Count 11.0 K/UL (4.8-10.8) H Red Blood Count 2.82 M/UL (4.70-6.10) L Hemoglobin 8.5 G/DL (14.2-18.0) L Hematocrit 26.9 % (42.0-52.0) L Mean Corpuscular Volume 95 FL (80-99) Mean Corpuscular Hemoglobin 30.1 PG (27.0-31.0) Mean Corpuscular Hemoglobin Concent 31.6 G/DL (32.0-36.0) L Red Cell Distribution Width 17.2 % (11.6-14.8) H Platelet Count 356 K/UL (150-450) Mean Platelet Volume 6.4 FL (6.5-10.1) L Neutrophils (%) (Auto) 75.3 % (45.0-75.0) H Lymphocytes (%) (Auto) 15.2 % (20.0-45.0) L Monocytes (%) (Auto) 6.1 % (1.0-10.0) Eosinophils (%) (Auto) 2.4 % (0.0-3.0) Basophils (%) (Auto) 1.0 % (0.0-2.0) Sodium Level 143 MMOL/L (136-145) Potassium Level 3.2 MMOL/L (3.5-5.1) L Chloride Level 113 MMOL/L (98-107) H Carbon Dioxide Level 13 MMOL/L (21-32) L Anion Gap 17 mmol/L (5-15) H Blood Urea Nitrogen 54 mg/dL (7-18) H Creatinine 4.2 MG/DL (0.55-1.30) H Estimat Glomerular Filtration Rate 14.4 mL/min (>60) Glucose Level 128 MG/DL (74-106) #H Calcium Level 7.8 MG/DL (8.5-10.1) L Phosphorus Level 4.3 MG/DL (2.5-4.9) Magnesium Level 1.6 MG/DL (1.8-2.4) L Total Bilirubin 0.3 MG/DL (0.2-1.0) Aspartate Amino Transf (AST/SGOT) 6 U/L (15-37) L Alanine Aminotransferase (ALT/SGPT) 8 U/L (12-78) L Alkaline Phosphatase 64 U/L (46-116) Total Creatine Kinase 17 U/L (26-308) L Total Protein 5.7 G/DL (6.4-8.2) L Albumin 2.0 G/DL (3.4-5.0) L Globulin 3.7 g/dL Albumin/Globulin Ratio 0.5 (1.0-2.7) L Microbiology Date/Time Source Procedure Growth Status 03/02/18 18:35 Indwelling Cath Urine Culture - Preliminary Resulted Intake and Output 03/03/18 03/04/18 19:00 07:00 Intake Total 915 ml 1020 ml Output Total 750 ml 850 ml Balance 165 ml 170 ml Intake Oral 840 ml 120 ml IV Total 75 ml 900 ml Output Urine Total 750 ml 850 ml Objective General Appearance: WD/WN, no apparent distress, alert EENT: PERRL/EOMI, normal ENT inspection Neck: non-tender, normal alignment, supple, normal inspection Cardiovascular: normal peripheral pulses, normal rate, regular rhythm, no gallop/murmur, no JVD Respiratory/Chest: chest wall non-tender, lungs clear, normal breath sounds, no respiratory distress, no accessory muscle use Abdomen: normal bowel sounds, non tender, soft, no organomegaly, no mass Extremities: normal range of motion Neurologic: food tester II-XII grossly normal, no motor/sensory deficits Skin: normal pigmentation, warm/dry Assessment/Plan Problem List: (1) FTT (failure to thrive) in adult (2) Leukocytosis Assessment & Plan: ?source? Continue meropenem per ID-see note (3) CKD (chronic kidney disease), stage III (4) BPH (benign prostatic hypertrophy) (5) DM (diabetes mellitus) Assessment & Plan: Continue novolog and levemir insulin (6) HTN (hypertension) Assessment & Plan: continue toprol (7) Coronary heart disease (8) UTI (urinary tract infection) Assessment & Plan: Acenitobacter and Staph Aureus. Cont meropenem per ID Status: stable Assessment/Plan Discharge to [facility] rehab SNF today. Continue meropenem and daptomycin for 7 days Jose Glasgow MD Mar 04, 2018 19:21
[2018-03-04] MEDS: Miralax 17gm pkt ORAL SCH (20:29)
[2018-03-04] MEDS ORDERED: Tubing IV Secondary IV ONE (22:29)
--- NOTE | 2018-03-07 08:03 | Discharge Summary ---
Discharge Summary Discharge Summary _ DATE OF ADMISSION: 02/28/2018 DATE OF DISCHARGE:03/04/18 REASON FOR ADMISSION: 63 years old male with past medical history of coronary artery disease, history of NSTEMI 3, hypertension, asthma, diabetes mellitus with history of DKA, kidney and pancreas transplant, BPH, chronic kidney disease, anemia, renal osteodystrophy, secondary hyperparathyroidism, history of CVA, major depressive disorder with history of suicidal attempt, encephalopathy, left eye blindness , was sent from the group home facility for evaluation due to failure to thrive and refusing to eat. Patient with DNR/DNI status. Patient was unable to provide much of the information. Upon evaluation vital signs were stable. WBC 16.1, hemoglobin 10.8 ,hematocrit 33.1. BUN 79, creatinine 5.9, anion gap 21, CO2 8. Glucose 348. Lactic acid 1.2. Troponin negative, EKG revealed normal sinus rhythm, no acute ischemic changes. LFT within normal limits. Urinalysis with evidence of pyuria and moderate bacteria. Patient admitted with diagnoses of acute renal failure on chronic kidney disease, metabolic acidosis, hyperglycemia , anemia, leukocytosis ,suprapubic catheter ,BPH, status post renal and pancreatic transplant ,diabetes mellitus mellitus type II with history of DKA, hypertension, COPD/asthma, coronary artery disease with history of NSTEMI, major depressive disorder with history of suicidal attempt, encephalopathy. CONSULTANTS: pulmonary Dr. Delgado ID specialist Dr. Wick device processing engineer Dr. Chambers psychiatrist film writer [facility] COURSE: Patient admitted. Data Analysis Assistant closely followed. Patient started on IV hydration. Renal parameters and electrolytes were closely monitored and nephrotoxins were avoided. Bicarbonate provided via IV fluids. Bicitra was given orally. Magnesium and potassium replaced. Patient declined dialysis. Symptomatic treatment was continued. Prior to discharge BUN 54 ,creatinine 4.2. . CO2 13 , anion gap 17. Blood sugar was managed with long-acting insulin, pre-meal short acting NovoLog and sliding scale of insulin as needed. Hemoglobin A1c at goal- 5.6. Head Boys Tennis Coach closely followed and optimized anti-glycemic medication regimen. Anemia workup was consistent with anemia of chronic kidney disease and anemia of acute blood loss due to recurrent hematuria. Ferritin level elevated. Hemoglobin and hematocrit were closely monitored with goal to keep hemoglobin above 7. Infectious disease specialist closely followed. Urine culture revealed MRSA and Acinetobacter, repeated urine culture revealed MRSA and Greta. Blood culture were negative. Leukocytosis trending down, patient was afebrile. Patient was on IV antibiotics as per ID specialist management and continue with antibiotic at the facility to complete the course. Supplemental oxygen provided as needed to keep pulse oximetry above 92%. Pulmonary status remained stable . Pulse oximetry was stable on room air , no signs of respiratory distress. Blood pressure medications were optimized. DVT and GI prophylaxis provided, Bowel regimen instituted. Supportive care provided. Pain management was addressed as needed. Psychiatrist closely followed. patient. Reality orientation and supportive therapy provided. Wellbutrin was continued. Patient clinically improved and was stable for discharge to group home facility. Complete antibiotic as outlined in medication reconciliation list. FINAL DIAGNOSES: Acute renal failure on chronic kidney disease Metabolic acidosis Hyperglycemia Diabetes mellitus out of control with history of DKA Anemia due to acute blood loss secondary to recurrent hematuria Anemia of chronic kidney disease Leukocytosis ( due to UTI) Urinary tract infection History of renal and pancreatic transplant Suprapubic catheter Neurogenic bladder BPH Hypertension COPD/asthma Coronary artery disease with history of NSTEMI Major depressive disorder with history of suicidal attempt Encephalopathy Diabetic nephropathy Hyperparathyroidism DISCHARGE MEDICATIONS: See Medication Reconciliation list. DISCHARGE INSTRUCTIONS: Patient was discharged to the group home facility. Follow up with medical doctor at the facility. I have been assigned to dictate discharge summary for this account. I was not involved in the patient's management. Catherine Griffin NP Mar 07, 2018 08:03
--- NOTE | 2018-03-07 10:45 | Progress Note ---
DATE: 03/04/2018 SUBJECTIVE: The patient is presenting with depressed mood, anhedonia, and irritable. He is not engaged during evaluation. He is started on Wellbutrin, more energetic 00:22 yesterday. His is not improving, it is 4.2. He is amotivated, however, denies any 00:46 symptoms and he minimized his current medical condition. MENTAL STATUS EXAMINATION: The patient is alert and oriented times self, place, and situation. Mood is dysphoric. Affect is constricted. Congruent with mood. Thought process is concrete. Thought content, no suicidal or homicidal ideations. ASSESSMENT: AXIS I Major depressive disorder. AXIS II Deferred. AXIS III As above. AXIS IV Low. AXIS V Global assessment of functioning is 25. PLAN: 1. The patient will be continued on current medication. 2. Provide the patient with supportive therapy and reality orientation. Fatmata Lu M.D. DR: PENELOPE JOB#: [id number] CC:
--- NOTE | 2018-03-07 10:45 | Consultation ---
DATE OF CONSULTATION: 03/02/2018 PODIATRIC CONSULTATION CONSULTING PHYSICIAN: Sendy De Souza D.P.M. REFERRING PHYSICIAN: Esdras Delgado M.D. REASON FOR CONSULTATION: Diabetic foot evaluation. HISTORY OF PRESENT ILLNESS: This is a patient, who was recently admitted to [facility] due to failure to thrive. The patient denies any current foot pain. PAST MEDICAL HISTORY: Significant for failure to thrive, renal failure, benign prostatic hypertrophy, diabetes, chronic kidney disease, and coronary artery disease. PAST SURGICAL HISTORY: Significant for renal transplant. MEDICATIONS: Wellbutrin, dextrose, Cymbalta, heparin, NovoLog, Levemir, meropenem, metoprolol, nystatin, Zofran, Protonix, MiraLAX, Renvela, and Bicitra. LOWER EXTREMITY PHYSICAL EXAMINATION: VITAL SIGNS: Blood pressure 101/58, pulse 62, temperature 97.8, and respirations 20. VASCULAR: Dorsalis pedis and posterior tibialis arteries are palpable 2/4 bilaterally with the capillary refill time of less than 3 seconds. NEUROLOGIC: Light touch sensation is intact. Pt defers additional neurologic examination. MUSCULOSKELETAL: Foot and ankle range of motion are within normal limits without pain. Muscle strength is 5/5 in all four quadrants. No tenderness to palpation to bilateral feet and toes. DERMATOLOGIC: Minimally elongated nails x10. No hyperkeratotic lesions, abrasions, ulcerations, or interspace macerations are noted, bilateral feet. IMPRESSION: This is a diabetic male with failure to thrive. PLAN: Reviewed diabetic foot care guidelines at length with the patient. Recommend continued decubitus precautions. Thank you, Dr. Delgado, for this consultation. Sendy De Souza D.P.M. DR: DARIEL JOB#: [id number] CC: ELOY
== END 2018-03-04 22:30 | disposition short-term general hospital (02) | DRG 682 ==
LOC: EDBD 13:45 → EMR 14:48 → 2E 15:50 → EDBEDREQ 17:25 → 4E 03-02 15:16
DX: N17.0 Acute kidney failure with tubular necrosis (principal); G93.40 Encephalopathy, unspecified; E87.2 Acidosis; N39.0 Urinary tract infection, site not specified; D62 Acute posthemorrhagic anemia; Z94.0 Kidney transplant status; Z94.83 Pancreas transplant status; F33.9 Major depressive disorder, recurrent, unspecified; E11.22 Type 2 diabetes mellitus with diabetic chronic kidney disease; I12.9 Hypertensive chronic kidney disease with stage 1 through stage 4 chronic kidney disease, or unspecified chronic kidney disease; E10.65 Type 1 diabetes mellitus with hyperglycemia; N18.9 Chronic kidney disease, unspecified; D63.1 Anemia in chronic kidney disease; N31.9 Neuromuscular dysfunction of bladder, unspecified; N40.0 Benign prostatic hyperplasia without lower urinary tract symptoms; J44.9 Chronic obstructive pulmonary disease, unspecified; I25.10 Atherosclerotic heart disease of native coronary artery without angina pectoris; I25.2 Old myocardial infarction; E21.3 Hyperparathyroidism, unspecified; Z95.5 Presence of coronary angioplasty implant and graft; Z79.4 Long term (current) use of insulin; Z88.8 Allergy status to other drugs, medicaments and biological substances; R63.0 Anorexia; N25.0 Renal osteodystrophy; Z66 Do not resuscitate; H54.62 Unqualified visual loss, left eye, normal vision right eye; Z93.50 Unspecified cystostomy status; I27.20 Pulmonary hypertension, unspecified; F99 Mental disorder, not otherwise specified; R62.7 Adult failure to thrive
CPT/HCPCS: 36415; 71045; 80053; 80061; 81001; 82009; 82550; 82607; 82728; 82746; 82962; 82977; 83036; 83540; 83550; 83605; 83735; 83880; 84100; 84484; 84550; 85007; 85025; 85610; 85730; 86140; 87040; 87081; 87086; 87181; 93005; 99285; J1815; J8499; S5561

== ENCOUNTER 2018-03-22 22:06 | Inpatient (IN) | payer MEDICARE, MEDICAID ==
[~2018-03-22] VITALS: Ht 172.7 cm; Wt 68.0 kg
[~2018-03-22 22:06] MED LIST changes: +DAPTOMYCIN350 MG IV; +HYDROCORTISO28.35 GM TP; +MEROPENEM-500 MG/50 IV; +NEPHROVITE1 TAB ORAL; +NOVOLOG100 UNIT/4 SQ
[2018-03-22] MEDS ORDERED: Sodium Chloride 500ML 500 ML IV ONE ×2 (22:11→22:15)
--- NOTE | 2018-03-22 22:21 | Emergency Room Report ---
History of Present Illness General Chief Complaint: Altered Level of Consciousness Source: Medical Record, EMS Present Illness HPI Patient is a 63-year-old male sent in from [facility] for increased altered mental status. Patient gradual onset of symptoms. Patient noted have prior history of diabetes as well as renal failure. Patient had a prior history of transplant as well as depression. He was noted to have some baseline confusion. Allergies: Coded Allergies: CEFEPIME (Verified Allergy, Intermediate, Rash, 03/01/18) Tolerates Carbapenem Patient History Past Medical History: see triage record Reviewed Nursing Documentation: PMH: Agreed; PSxH: Agreed Nursing Documentation-PMH Hx Hypertension: Yes Hx Pacemaker: No Hx Asthma: Yes Hx COPD: Yes Hx Diabetes: Yes Hx Cancer: Yes - kidney and panreas ca Hx Gastrointestinal Problems: Yes - Gastritis, Hx Dialysis: No - BPH, CKD, Anemia, renal osteodystrophy second hyperparathyroidism w/ vit D Hx Neurological Problems: Yes Hx Cerebrovascular Accident: Yes Hx Transient Ischemic Attacks: No Hx Dementia: No Hx Alzheimer's Disease: No Hx Parkinson's Disease: No Hx Meningitis: No Hx Encephalitis: Yes - 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 ATTEMPT Hx Seizures: No Hx Epilepsy: No Hx Multiple Sclerosis: No Hx Cerebral Palsy: No Hx Amyotrophic Lat Sclerosis: No Hx Guillian-[place] Syndrome: No Hx Paralysis: No Hx Peripheral Neuropathy: No Hx Spinal Cord Injury: No Hx Head Trauma: No Hx Traumatic Brain Injury: No Hx Memory Loss: No Hx Concentration Difficulty: No Hx Speech Problem: No Hx Tremors: No Hx Vertigo: No Hx Dizziness: Yes Hx Syncope: No Hx Headaches: No Hx Aphasia: No Hx Dysphasia: No Hx Numbness: No Hx Weakness: No Hx Fatigue: No Hx Neurologic Surgery: No Hx Brain Shunt: No Review of Systems All Other Systems: limited - by poor historian Physical Exam Vital Signs Date Time Temp Pulse Resp B/P (MAP) Pulse Ox O2 Delivery O2 Flow Rate FiO2 03/22/18 22:03 98.0 11 16 132/84 95 Room Air 98.1 Sp02 EP Interpretation: reviewed, normal General Appearance: alert, thin, Chronically Ill Head: atraumatic ENT: normal ENT inspection, hearing grossly normal, normal voice Neck: normal inspection, full range of motion, supple, no bony tend Respiratory: normal inspection, lungs clear, normal breath sounds, no respiratory distress, no retraction, no wheezing Cardiovascular #1: no edema, tachycardia Gastrointestinal: normal inspection, normal bowel sounds, non tender, soft, no guarding, no hernia Genitourinary: no CVA tenderness Musculoskeletal: normal inspection, back normal, normal range of motion Neurologic: normal inspection, alert, responsive, speech normal, other - confused Skin: normal inspection, normal color, no rash Medical Decision Making Diagnostic Impression: Primary Impression: Altered level of consciousness Additional Impressions: Uncontrolled diabetes mellitus Metabolic acidosis Chronic renal disease ER Course Patient presented for altered mental status. Differential diagnosis included but was not limited to ischemic stroke, subarachnoid hemorrhage, hypoglycemia, spinal cord injury, neurodegenerative disorder, urinary tract infection, hypoxemia. Because of complexity of patient's case laboratory testing and imaging studies were ordered. The patient noted have elevated blood sugar. The patient was started on IV fluids as well as IV insulin.Patient was started on IV fluids as well as IV antibiotics. The patient was noted to have elevated blood sugar as well as evidence of renal disease. The patient was trace positive for ketones. Dr. Christopher Rosado was contacted for inpatient management due to primary care physician. Labs Test 03/22/18 23:05 White Blood Count 23.3 K/UL (4.8-10.8) Red Blood Count 3.20 M/UL (4.70-6.10) Hemoglobin 9.7 G/DL (14.2-18.0) Hematocrit 30.6 % (42.0-52.0) Mean Corpuscular Volume 95 FL (80-99) Mean Corpuscular Hemoglobin 30.4 PG (27.0-31.0) Mean Corpuscular Hemoglobin Concent 31.8 G/DL (32.0-36.0) Red Cell Distribution Width 16.2 % (11.6-14.8) Platelet Count 540 K/UL (150-450) Mean Platelet Volume 5.8 FL (6.5-10.1) Neutrophils (%) (Auto) % (45.0-75.0) Lymphocytes (%) (Auto) % (20.0-45.0) Monocytes (%) (Auto) % (1.0-10.0) Eosinophils (%) (Auto) % (0.0-3.0) Basophils (%) (Auto) % (0.0-2.0) Differential Total Cells Counted 100 Neutrophils % (Manual) 93 % (45-75) Lymphocytes % (Manual) 1 % (20-45) Monocytes % (Manual) 5 % (1-10) Eosinophils % (Manual) 1 % (0-3) Basophils % (Manual) 0 % (0-2) Band Neutrophils 0 % (0-8) Nucleated Red Blood Cells 1 /100 WBC Platelet Estimate Increased Platelet Morphology Normal Polychromasia 1+ Anisocytosis 2+ Macrocytosis 1+ Sodium Level 144 MMOL/L (136-145) Potassium Level 3.8 MMOL/L (3.5-5.1) Chloride Level 115 MMOL/L (98-107) Carbon Dioxide Level 7 MMOL/L (21-32) Anion Gap 22 mmol/L (5-15) Blood Urea Nitrogen 86 mg/dL (7-18) Creatinine 5.6 MG/DL (0.55-1.30) Estimat Glomerular Filtration Rate 10.3 mL/min (>60) Glucose Level 401 MG/DL (74-106) Calcium Level 8.9 MG/DL (8.5-10.1) Total Bilirubin 0.3 MG/DL (0.2-1.0) Aspartate Amino Transf (AST/SGOT) 27 U/L (15-37) Alanine Aminotransferase (ALT/SGPT) 15 U/L (12-78) Alkaline Phosphatase 95 U/L (46-116) Total Creatine Kinase 591 U/L (26-308) Creatine Kinase MB 4.7 NG/ML (0.0-3.6) Creatine Kinase MB Relative Index 0.7 Troponin I 0.016 ng/mL (0.000-0.056) Total Protein 6.6 G/DL (6.4-8.2) Albumin 2.2 G/DL (3.4-5.0) Globulin 4.4 g/dL Albumin/Globulin Ratio 0.5 (1.0-2.7) Lipase 243 U/L (73-393) Acetone Level Positive-small (NEGATIVE) EKG Diagnostic Results Rate: tachycardiac - 120 Rhythm: NSR ST Segments: no acute changes Last Vital Signs Date Time Temp Pulse Resp B/P (MAP) Pulse Ox O2 Delivery O2 Flow Rate FiO2 03/22/18 22:03 98.0 11 16 132/84 95 Room Air 98.1 Status: unchanged Disposition: ADMITTED INPATIENT Condition: Serious Gordy Breen MD Mar 22, 2018 22:21
[2018-03-22 23:20] VITALS: BP 111/52
[2018-03-22 23:30] LABS: HEMATOCRIT 30.6 % (42.0-52.0); HEMOGLOBIN 9.7 G/DL (14.2-18.0); MEAN CORPUSCULAR VOLUME 95 FL (80-99); PLATELET COUNT 540 K/UL (150-450); RED CELL DISTRIBUTION WIDTH 16.2 % (11.6-14.8)
[2018-03-22 23:32] LABS: WHITE BLOOD COUNT 23.3 K/UL (4.8-10.8)
[2018-03-22 23:43] LABS: ANION GAP 22 mmol/L (5-15); BLOOD UREA NITROGEN 86 mg/dL (7-18); CALCIUM 8.9 MG/DL (8.5-10.1); CHLORIDE 115 MMOL/L (98-107); CREATININE 5.6 MG/DL (0.55-1.30); POTASSIUM 3.8 MMOL/L (3.5-5.1); SODIUM 144 MMOL/L (136-145)
[2018-03-22 23:48] LABS: CARBON DIOXIDE 7 MMOL/L (21-32)
[2018-03-22 23:57] LABS: ALANINE AMINOTRANSFERASE 15 U/L (12-78); ALBUMIN 2.2 G/DL (3.4-5.0); ALBUMIN/GLOBULIN RATIO 0.5 (1.0-2.7); ALKALINE PHOSPHATASE 95 U/L (46-116); ASPARTATE AMINO TRANSFERASE 27 U/L (15-37); BILIRUBIN,TOTAL 0.3 MG/DL (0.2-1.0); CKMB 4.7 NG/ML (0.0-3.6); CREATINE KINASE 591 U/L (26-308)
[2018-03-23] VITALS (12 sets, daily range): BP systolic 90–118; BP diastolic 46–69
[2018-03-23] MEDS ORDERED: Sodium Chloride 500ML 500 ML IV ONE
[2018-03-23] MEDS ORDERED: Insulin Human Regular 100units/ml 3ml IV ONE
[2018-03-23] MEDS ORDERED: MIRALAX17 G2 ORAL (01:46)
[2018-03-23] MEDS ORDERED: ACETAMINOPHEN325 M1 ORAL (01:46)
[2018-03-23] MEDS ORDERED: DULoxetine 30mg cap ORAL SCH (09:00)
[2018-03-23] MEDS ORDERED: Metoprolol Succinate XL 50mg tab ORAL SCH (09:00)
[2018-03-23] MEDS ORDERED: azaTHIOprine 50 MG TAB ORAL SCH (09:00)
[2018-03-23] MEDS ORDERED: Metoprolol Succinate XL 25mg tab ORAL SCH ×2 (09:00→21:00)
[2018-03-23] MEDS ORDERED: Heparin 5000 units/ml inj SUBQ SCH (09:00)
[2018-03-23] MEDS ORDERED: Metoclopramide 10mg/2ml Inj IVP PRN ×2 (09:00→21:00)
--- NOTE | 2018-03-23 09:02 | Consultation ---
Consult Note Consult Note asked to eval for renal failure- patient known to me from his previous admissions-Patient is a 63-year-old male sent in from shelter for increased altered mental status. Patient gradual onset of symptoms. Patient noted have prior history of diabetes as well as renal failure. Patient had a prior history of transplant as well as depression. He was noted to have some baseline confusion. CEFEPIME (Verified Allergy, Intermediate, Rash, 03/01/18) Tolerates Carbapenem Hx Hypertension: Yes Hx Asthma: Yes Hx COPD: Yes Hx Diabetes: Yes Hx Cancer: Yes - kidney and panreas ca Hx Gastrointestinal Problems: Yes - Gastritis, Hx Dialysis: No - BPH, CKD, Anemia, renal osteodystrophy second hyperparathyroidism w/ vit D Hx Neurological Problems: Yes Hx Cerebrovascular Accident: Yes Hx Encephalitis: Yes - 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 ATTEMPT Hx Dizziness: Yes examined data reviewed Assessment/Plan 1) Anemia in chronic kidney disease (2) Acute on chronic renal failure (3) Psychiatric disturbance (4) Acidosis, metabolic (5) UTI (urinary tract infection) (6) Encephalopathy Acute renal failure on chronic kidney disease Metabolic acidosis and HyperGlycemia h/o Recurrent hematuria history of recurrent UTI Anemia due to acute blood loss( i.e. hematuria) and CKD Leukocytosis Suprapubic catheter Neurogenic bladder BPH Elevated CPK Status post renal pancreatic transplant h/o Elevated lipase Diabetes mellitus type 2 with hx of DKA Hypertension now low BP COPD/asthma Coronary artery disease with history of NSTEMI major depressive disorder with history of suicidal attempt Plan adjust BP meds- Hydrate- Bicarb via IV fluids PO Bicitra mag and KCL as needed BS check and adjustment antibiotics watch Hgb Gastric support patient DNR monitor renal parameters avoid nephrotoxics no dialysis in the past Luis Chambers MD Mar 23, 2018 09:02
--- NOTE | 2018-03-23 09:55 | Diagnostic Imaging Report ---
Indication: Shortness of breath Technique: One view of the chest Comparison: 03/01/2018 Findings: Lungs and pleural spaces are clear. The heart size is normal. There is a coronary stent incidentally noted Impression: Negative
[2018-03-23] MEDS ORDERED: Ertapenem 0.5 GM in NS 55 ML IVPB SCH (10:00)
[2018-03-23] MEDS ORDERED: Sodium Bicarbonate 50 ML in 1/2 NS 1000ml 1,000 ML IV SCH (10:00)
[2018-03-23 11:12] LABS: CHOLESTEROL 88 MG/DL (< 200); HDL CHOLESTEROL 29 MG/DL (40-60); TRIGLYCERIDES 116 MG/DL (30-150)
[2018-03-23] MEDS ORDERED: NovoLOG Insulin Flexpen SUBQ SCH ×2 (11:30→16:30)
[2018-03-23] MEDS ORDERED: Sodium Citrate 30ml ORAL SCH (12:00)
--- NOTE | 2018-03-23 12:29 | History & Physical ---
History and Physical History & Physicial Dictated for Int Med-Dr Rosado no. [id number]. Jose Glasgow MD Mar 23, 2018 12:29
--- NOTE | 2018-03-23 13:08 | Consultation ---
History of Present Illness General Date patient seen: Mar 23, 2018 Chief Complaint: Altered Level of Consciousness Reason for Consultation: Sepsis Present Illness HPI Mr. Urrutia is 63 yo male who presents from a alf with increased AMS. Per notes the patient has baseline confusion but this had gradually been worsening. He has a history of DM and his blood sugars were 401 in the ED. He is suspected to have a UTI as he has a suprapubic catheter. He has been afebrile but has a leukocytosis of 23. ID was consulted for sepsis PMHx/PSHx HTN DM Asthma COPD Kidney CA Pancreatic CA Anemia CVA CKD BPH \ SocHx Lives in a alf FamHx Unable to obtain 2/2 AMS Allergies: Coded Allergies: CEFEPIME (Verified Allergy, Intermediate, Rash, 03/01/18) Tolerates Carbapenem Medication History Scheduled Amlodipine Besylate (Norvasc), 5 MG ORAL DAILY, (Reported) Atorvastatin Calcium* (Lipitor*), 10 MG ORAL BEDTIME Azathioprine* (Imuran*), 50 MG PO DAILY, (Reported) Daptomycin (DAPTOmycin), 350 MG IV EVERY OTHER DAY Duloxetine Hcl* (Cymbalta*), 30 MG ORAL DAILY, (Reported) Insulin Aspart (Novolog Flexpen), 6 UNITS SUBQ NOVOTIAC Insulin Detemir (Levemir Flexpen), 12 UNITS SUBQ BID Meropenem-0.9% Sodium Chloride (Meropenem-0.9% NaCl 500 mg/50), 500 MG IV DAILY Metoprolol Succinate* (Metoprolol Succinate*), 50 MG ORAL Q12HR, (Reported) Polyethylene Glycol 3350* (Miralax*), 17 GM ORAL DAILY, (Reported) Polyethylene Glycol* (Miralax*), 17 GM ORAL BEDTIME Sevelamer Carbonate* (Renvela*), 800 MG ORAL THREE TIMES A DAY, (Reported) Vitamin B Cmplx/Vit C/Folic AC (Nephro-Enedina Tablet), 1 TAB ORAL DAILY, (Reported ) Scheduled PRN Acetaminophen* (Acetaminophen 325MG Tablet*), 650 MG ORAL Q6H PRN for For Pain, (Reported) Hydrocortisone (Hydrocortisone), 1 % TP BID PRN for Itching, (Reported) Ondansetron* (Zofran*), 4 MG ORAL Q6H PRN for Nausea & Vomiting, (Reported) Patient History Healthcare decision maker Paul Lopez [phone] Resuscitation status Do Not Resuscitate Advanced Directive on File Yes Review of Systems ROS Narrative Unable to obtain 2/2 AMS Physical Exam Last 24 Hour Vital Signs Date Time Temp Pulse Resp B/P (MAP) Pulse Ox O2 Delivery O2 Flow Rate FiO2 03/23/18 13:01 97.6 99 18 108/50 (69) 100 97.6 03/23/18 09:56 Room Air 03/23/18 08:21 105 118/60 03/23/18 08:21 105 118/60 03/23/18 08:19 97.6 105 18 118/60 (79) 100 97.6 03/23/18 03:58 97.6 95 18 92/50 (64) 100 97.6 03/23/18 01:57 Room Air 03/23/18 01:42 111 20 111/52 100 Room Air 03/23/18 01:42 105 20 112/57 100 Room Air 03/22/18 23:20 111 23 111/52 100 Room Air 03/22/18 22:03 98.0 11 16 132/84 95 Room Air 98.1 Intake and Output 03/22/18 03/23/18 19:00 07:00 Intake Total 0 ml Output Total 200 ml Balance -200 ml Intake Oral 0 ml Output Urine Total 200 ml Laboratory Tests Test 03/22/18 23:05 03/23/18 09:30 03/23/18 12:30 White Blood Count 23.3 K/UL (4.8-10.8) *H Red Blood Count 3.20 M/UL (4.70-6.10) L Hemoglobin 9.7 G/DL (14.2-18.0) L Hematocrit 30.6 % (42.0-52.0) L Mean Corpuscular Volume 95 FL (80-99) Mean Corpuscular Hemoglobin 30.4 PG (27.0-31.0) Mean Corpuscular Hemoglobin Concent 31.8 G/DL (32.0-36.0) L Red Cell Distribution Width 16.2 % (11.6-14.8) H Platelet Count 540 K/UL (150-450) H Mean Platelet Volume 5.8 FL (6.5-10.1) L Neutrophils (%) (Auto) % (45.0-75.0) Lymphocytes (%) (Auto) % (20.0-45.0) Monocytes (%) (Auto) % (1.0-10.0) Eosinophils (%) (Auto) % (0.0-3.0) Basophils (%) (Auto) % (0.0-2.0) Differential Total Cells Counted 100 Neutrophils % (Manual) 93 % (45-75) H Lymphocytes % (Manual) 1 % (20-45) L Monocytes % (Manual) 5 % (1-10) Eosinophils % (Manual) 1 % (0-3) Basophils % (Manual) 0 % (0-2) Band Neutrophils 0 % (0-8) Nucleated Red Blood Cells 1 /100 WBC Platelet Estimate Increased H Platelet Morphology Normal Polychromasia 1+ Anisocytosis 2+ Macrocytosis 1+ Sodium Level 144 MMOL/L (136-145) Potassium Level 3.8 MMOL/L (3.5-5.1) Chloride Level 115 MMOL/L (98-107) H Carbon Dioxide Level 7 MMOL/L (21-32) *L Anion Gap 22 mmol/L (5-15) H Blood Urea Nitrogen 86 mg/dL (7-18) H Creatinine 5.6 MG/DL (0.55-1.30) H Estimat Glomerular Filtration Rate 10.3 mL/min (>60) Glucose Level 401 MG/DL (74-106) H Pending Calcium Level 8.9 MG/DL (8.5-10.1) Total Bilirubin 0.3 MG/DL (0.2-1.0) Aspartate Amino Transf (AST/SGOT) 27 U/L (15-37) Alanine Aminotransferase (ALT/SGPT) 15 U/L (12-78) Alkaline Phosphatase 95 U/L (46-116) Total Creatine Kinase 591 U/L (26-308) H Creatine Kinase MB 4.7 NG/ML (0.0-3.6) H Creatine Kinase MB Relative Index 0.7 Troponin I 0.016 ng/mL (0.000-0.056) Total Protein 6.6 G/DL (6.4-8.2) Albumin 2.2 G/DL (3.4-5.0) L Globulin 4.4 g/dL Albumin/Globulin Ratio 0.5 (1.0-2.7) L Lipase 243 U/L (73-393) Acetone Level Positive-small (NEGATIVE) Hemoglobin A1c 6.6 % (4.3-6.0) H Uric Acid 7.3 MG/DL (2.6-7.2) H Phosphorus Level 4.0 MG/DL (2.5-4.9) Magnesium Level 1.8 MG/DL (1.8-2.4) Triglycerides Level 116 MG/DL (30-150) Cholesterol Level 88 MG/DL (< 200) LDL Cholesterol 40 mg/dL (<100) HDL Cholesterol 29 MG/DL (40-60) L Cholesterol/HDL Ratio 3.0 (3.3-4.4) L Microbiology Date/Time Source Procedure Growth Status 03/23/18 00:53 Rectum Received Height (Feet): 5 Height (Inches): 8.00 Weight (Pounds): 151 Medications Current Medications Medications (Trade) Dose Ordered Sig/Dunia Route PRN Reason Start Time Stop Time Status Last Admin Dose Admin Acetaminophen (Tylenol) 650 mg Q6H PRN ORAL Mild Pain/Temp > 100.5 03/23/18 07:00 04/22/18 06:59 Dextrose (Dextrose 50%) 25 ml STAT PRN IV Hypoglycemia 03/23/18 07:00 04/22/18 06:59 Dextrose (Dextrose 50%) 50 ml STAT PRN IV Hypoglycemia 03/23/18 07:00 04/22/18 06:59 Duloxetine HCl (Cymbalta) 30 mg DAILY ORAL 03/23/18 09:00 04/22/18 08:59 03/23/18 08:21 Ertapenem 0.5 gm/ Sodium Chloride 55 ml @ 110 mls/hr Q24H IVPB 03/23/18 10:00 03/24/18 09:59 03/23/18 10:51 Heparin Sodium (Porcine) (Heparin 5000 units/ml) 5,000 units EVERY 12 HOURS SUBQ 03/23/18 09:00 04/22/18 08:59 03/23/18 08:22 Insulin Aspart (NovoLOG) BEFORE MEALS AND HS SUBQ 03/23/18 11:30 04/22/18 11:29 03/23/18 11:51 Metoclopramide HCl (Reglan) 10 mg Q6H PRN IVP Nausea & Vomiting 03/23/18 09:00 04/22/18 08:59 Metoprolol Succinate (Toprol XL) 25 mg Q12HR ORAL 03/23/18 21:00 04/22/18 20:59 Pantoprazole (Protonix) 40 mg DAILY ORAL 03/24/18 09:00 04/23/18 08:59 Sevelamer Carbonate (Renvela) 800 mg THREE TIMES A DAY ORAL 03/23/18 09:00 04/22/18 08:59 03/23/18 08:21 Sodium Bicarbonate 50 ml/ Sodium Chloride 1,050 ml @ 100 mls/hr [id number] IV 03/23/18 10:00 04/22/18 09:59 03/23/18 10:51 Sodium Citrate (Bicitra) 30 ml EVERY 6 HOURS ORAL 03/23/18 12:00 04/22/18 11:59 Objective Narrative Gen: NAD, sitting up in bed. HEENT: NCAT, MMM, EOMI, PERRL, No Oral lesion, no scleral icterus, poor dentition NECK: full range of motion, supple, no meningismus, No LAD, No JVD LUNGS: CTAB, No W/C, No Accessory muscle use CARDS: RRR, S1, S2, No M/R/G ABD: Soft, Mild nonfocal tenderness, ND, No R/G, + BS, No HSM, No Masses : Suprapubic cath no surrounding erythema or purulence Ext: C/C/E, Pulses 2+ B/L (DP, Rad) NEURO: A/O x 0, Strength and Sensation Grossly intact SKIN: warm/dry, skin rash on feet arms and skin folds, Assessment/Plan Assessment/Plan 63 yo male who presents from a alf with increased AMS and sepsis Sepsis WBCs 23, Afebrile - Probable complicated UTI Has suprapubic cath, R/O Bacteremia - Urine Cx and UA pend Acute on Chronic Encephalopathy - Probably due to UTI +/- Hyperglycemia Rash- - Will need to monitor. May be contact, fungal or other HTN DM Asthma COPD Kidney CA Pancreatic CA Anemia CVA CKD BPH Plan: Continue Ertapenem pending cultures Clotrimazole cream for the rashes Get Blood Cx f/u UA and Ucx Monitor CBC and Temps Supportive care Thank you Dr. Glasgow for this consult. We will continue to follow the patient during this hospitalization. William Caputo MD Mar 23, 2018 13:08
--- NOTE | 2018-03-23 13:35 | Consultation ---
History of Present Illness General Date patient seen: Mar 23, 2018 Chief Complaint: Altered Level of Consciousness Reason for Consultation: Sepsis Present Illness HPI 62-year-old male with hx of depression, dementia, DM, chronic renal insufficiency, failed renal transplant, presented from shelter increased with CC of acute encephalopathy. History is limited by poor historian. He was found to have hyperglycemia/acidosis and severe anemia and admitted for further evaluation. Pt is somnolent currently. He is DNR and DNI. Allergies: Coded Allergies: CEFEPIME (Verified Allergy, Intermediate, Rash, 03/01/18) Tolerates Carbapenem Medication History Scheduled Amlodipine Besylate (Norvasc), 5 MG ORAL DAILY, (Reported) Atorvastatin Calcium* (Lipitor*), 10 MG ORAL BEDTIME Azathioprine* (Imuran*), 50 MG PO DAILY, (Reported) Daptomycin (DAPTOmycin), 350 MG IV EVERY OTHER DAY Duloxetine Hcl* (Cymbalta*), 30 MG ORAL DAILY, (Reported) Insulin Aspart (Novolog Flexpen), 6 UNITS SUBQ NOVOTIAC Insulin Detemir (Levemir Flexpen), 12 UNITS SUBQ BID Meropenem-0.9% Sodium Chloride (Meropenem-0.9% NaCl 500 mg/50), 500 MG IV DAILY Metoprolol Succinate* (Metoprolol Succinate*), 50 MG ORAL Q12HR, (Reported) Polyethylene Glycol 3350* (Miralax*), 17 GM ORAL DAILY, (Reported) Polyethylene Glycol* (Miralax*), 17 GM ORAL BEDTIME Sevelamer Carbonate* (Renvela*), 800 MG ORAL THREE TIMES A DAY, (Reported) Vitamin B Cmplx/Vit C/Folic AC (Nephro-Enedina Tablet), 1 TAB ORAL DAILY, (Reported ) Scheduled PRN Acetaminophen* (Acetaminophen 325MG Tablet*), 650 MG ORAL Q6H PRN for For Pain, (Reported) Hydrocortisone (Hydrocortisone), 1 % TP BID PRN for Itching, (Reported) Ondansetron* (Zofran*), 4 MG ORAL Q6H PRN for Nausea & Vomiting, (Reported) Patient History Healthcare decision maker Paul Lopez [phone] Resuscitation status Do Not Resuscitate Advanced Directive on File Yes Past Medical/Surgical History Past Medical/Surgical History: (1) Retinopathy, diabetic, left eye (2) Renal mass, right (3) Vitamin D deficiency (4) Hypoparathyroidism (5) Blind left eye (6) Suprapubic catheter (7) BPH (benign prostatic hypertrophy) (8) Anemia in chronic kidney disease (9) Pulmonary HTN (10) Psychiatric disturbance (11) Coronary heart disease Review of Systems All Other Systems: negative except mentioned in HPI Physical Exam General Appearance: WD/WN Lines, tubes and drains: peripheral HEENT: normocephalic, anicteric Neck: non-tender, normal alignment Respiratory/Chest: chest wall non-tender, lungs clear Breasts: no masses Cardiovascular/Chest: normal peripheral pulses Abdomen: normal bowel sounds, non tender Genitourinary/Rectal: normal genital exam Extremities: normal range of motion Skin Exam: normal pigmentation 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: 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 II-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 grossly normal Last 24 Hour Vital Signs Date Time Temp Pulse Resp B/P (MAP) Pulse Ox O2 Delivery O2 Flow Rate FiO2 03/23/18 13:01 97.6 99 18 108/50 (69) 100 97.6 03/23/18 09:56 Room Air 03/23/18 08:21 105 118/60 03/23/18 08:21 105 118/60 03/23/18 08:19 97.6 105 18 118/60 (79) 100 97.6 03/23/18 03:58 97.6 95 18 92/50 (64) 100 97.6 03/23/18 01:57 Room Air 03/23/18 01:42 111 20 111/52 100 Room Air 03/23/18 01:42 105 20 112/57 100 Room Air 03/22/18 23:20 111 23 111/52 100 Room Air 03/22/18 22:03 98.0 11 16 132/84 95 Room Air 98.1 Intake and Output 03/22/18 03/23/18 19:00 07:00 Intake Total 0 ml Output Total 200 ml Balance -200 ml Intake Oral 0 ml Output Urine Total 200 ml Laboratory Tests Test 03/22/18 23:05 03/23/18 09:30 03/23/18 12:30 White Blood Count 23.3 K/UL (4.8-10.8) *H Red Blood Count 3.20 M/UL (4.70-6.10) L Hemoglobin 9.7 G/DL (14.2-18.0) L Hematocrit 30.6 % (42.0-52.0) L Mean Corpuscular Volume 95 FL (80-99) Mean Corpuscular Hemoglobin 30.4 PG (27.0-31.0) Mean Corpuscular Hemoglobin Concent 31.8 G/DL (32.0-36.0) L Red Cell Distribution Width 16.2 % (11.6-14.8) H Platelet Count 540 K/UL (150-450) H Mean Platelet Volume 5.8 FL (6.5-10.1) L Neutrophils (%) (Auto) % (45.0-75.0) Lymphocytes (%) (Auto) % (20.0-45.0) Monocytes (%) (Auto) % (1.0-10.0) Eosinophils (%) (Auto) % (0.0-3.0) Basophils (%) (Auto) % (0.0-2.0) Differential Total Cells Counted 100 Neutrophils % (Manual) 93 % (45-75) H Lymphocytes % (Manual) 1 % (20-45) L Monocytes % (Manual) 5 % (1-10) Eosinophils % (Manual) 1 % (0-3) Basophils % (Manual) 0 % (0-2) Band Neutrophils 0 % (0-8) Nucleated Red Blood Cells 1 /100 WBC Platelet Estimate Increased H Platelet Morphology Normal Polychromasia 1+ Anisocytosis 2+ Macrocytosis 1+ Sodium Level 144 MMOL/L (136-145) Potassium Level 3.8 MMOL/L (3.5-5.1) Chloride Level 115 MMOL/L (98-107) H Carbon Dioxide Level 7 MMOL/L (21-32) *L Anion Gap 22 mmol/L (5-15) H Blood Urea Nitrogen 86 mg/dL (7-18) H Creatinine 5.6 MG/DL (0.55-1.30) H Estimat Glomerular Filtration Rate 10.3 mL/min (>60) Glucose Level 401 MG/DL (74-106) H Pending Calcium Level 8.9 MG/DL (8.5-10.1) Total Bilirubin 0.3 MG/DL (0.2-1.0) Aspartate Amino Transf (AST/SGOT) 27 U/L (15-37) Alanine Aminotransferase (ALT/SGPT) 15 U/L (12-78) Alkaline Phosphatase 95 U/L (46-116) Total Creatine Kinase 591 U/L (26-308) H Creatine Kinase MB 4.7 NG/ML (0.0-3.6) H Creatine Kinase MB Relative Index 0.7 Troponin I 0.016 ng/mL (0.000-0.056) Total Protein 6.6 G/DL (6.4-8.2) Albumin 2.2 G/DL (3.4-5.0) L Globulin 4.4 g/dL Albumin/Globulin Ratio 0.5 (1.0-2.7) L Lipase 243 U/L (73-393) Acetone Level Positive-small (NEGATIVE) Hemoglobin A1c 6.6 % (4.3-6.0) H Uric Acid 7.3 MG/DL (2.6-7.2) H Phosphorus Level 4.0 MG/DL (2.5-4.9) Magnesium Level 1.8 MG/DL (1.8-2.4) Triglycerides Level 116 MG/DL (30-150) Cholesterol Level 88 MG/DL (< 200) LDL Cholesterol 40 mg/dL (<100) HDL Cholesterol 29 MG/DL (40-60) L Cholesterol/HDL Ratio 3.0 (3.3-4.4) L Microbiology Date/Time Source Procedure Growth Status 03/23/18 00:53 Rectum Received Height (Feet): 5 Height (Inches): 8.00 Weight (Pounds): 151 Medications Current Medications Medications (Trade) Dose Ordered Sig/Dunia Route PRN Reason Start Time Stop Time Status Last Admin Dose Admin Acetaminophen (Tylenol) 650 mg Q6H PRN ORAL Mild Pain/Temp > 100.5 03/23/18 07:00 04/22/18 06:59 Dextrose (Dextrose 50%) 25 ml STAT PRN IV Hypoglycemia 03/23/18 07:00 04/22/18 06:59 Dextrose (Dextrose 50%) 50 ml STAT PRN IV Hypoglycemia 03/23/18 07:00 04/22/18 06:59 Duloxetine HCl (Cymbalta) 30 mg DAILY ORAL 03/23/18 09:00 04/22/18 08:59 03/23/18 08:21 Ertapenem 0.5 gm/ Sodium Chloride 55 ml @ 110 mls/hr Q24H IVPB 03/23/18 10:00 03/24/18 09:59 03/23/18 10:51 Heparin Sodium (Porcine) (Heparin 5000 units/ml) 5,000 units EVERY 12 HOURS SUBQ 03/23/18 09:00 04/22/18 08:59 03/23/18 08:22 Insulin Aspart (NovoLOG) BEFORE MEALS AND HS SUBQ 03/23/18 11:30 04/22/18 11:29 03/23/18 11:51 Metoclopramide HCl (Reglan) 10 mg Q6H PRN IVP Nausea & Vomiting 03/23/18 09:00 04/22/18 08:59 Metoprolol Succinate (Toprol XL) 25 mg Q12HR ORAL 03/23/18 21:00 04/22/18 20:59 Pantoprazole (Protonix) 40 mg DAILY ORAL 03/24/18 09:00 04/23/18 08:59 Sevelamer Carbonate (Renvela) 800 mg THREE TIMES A DAY ORAL 03/23/18 09:00 04/22/18 08:59 03/23/18 13:06 Sodium Bicarbonate 50 ml/ Sodium Chloride 1,050 ml @ 100 mls/hr [id number] IV 03/23/18 10:00 04/22/18 09:59 03/23/18 10:51 Sodium Citrate (Bicitra) 30 ml EVERY 6 HOURS ORAL 03/23/18 12:00 04/22/18 11:59 03/23/18 13:06 Assessment/Plan Problem List: (1) Encephalopathy acute ICD Codes: G93.40 - Encephalopathy acute SNOMED: 6588205 (2) Acute on chronic renal failure ICD Codes: N17.9 - Acute on chronic renal failure; N18.9 - Chronic kidney disease, unspecified SNOMED: 034567660 (3) Sepsis ICD Codes: A41.9 - Sepsis, unspecified organism SNOMED: 81517302 (4) Acute hyperglycemia ICD Codes: R73.9 - Acute hyperglycemia SNOMED: 870516678 (5) Hypoparathyroidism ICD Codes: E20.9 - Hypoparathyroidism, unspecified SNOMED: 77923678 (6) Pulmonary HTN ICD Codes: I27.0 - Pulmonary HTN SNOMED: 93659081 (7) Psychiatric disturbance ICD Codes: F99 - Psychiatric disturbance SNOMED: 22419213 (8) Renal transplant recipient ICD Codes: Z94.0 - Renal transplant recipient SNOMED: 032380636 Assessment/Plan aggressive iv hydration schneider-culture check electrolytes sliding scale NPo as long as encephalopathic iv abx psych evaluation pt could benefit from hospice care upon discharge Esdras Delgado MD Mar 23, 2018 13:35
[2018-03-23 14:28] LABS: BILIRUBIN, URINE NEGATIVE (NEGATIVE); COLOR,URINE PALE YELLOW; GLUCOSE, URINE (UA) 2+ (NEGATIVE); KETONES,URINE 2+ (NEGATIVE); LEUKOCYTE ESTERASE ,URINE 3+ (NEGATIVE); NITRITE,URINE NEGATIVE (NEGATIVE); PH,URINE 6 (4.5-8.0); PROTEIN,URINE 3+ (NEGATIVE); UROBILINOGEN,URINE NORMAL MG/DL (0.0-1.0)
[2018-03-23 14:29] LABS: APPEARANCE,URINE CLOUDY
[2018-03-23] MEDS ORDERED: Insulin Human Regular 100units/ml 3ml IV PRN ×2 (15:45)
[2018-03-23] MEDS: Sodium Bicarbonate 50 ML in 1/2 NS 1000ml 1,000 ML IV SCH ×2 (15:45→23:37)
[2018-03-23 16:57] LABS: ANION GAP 22 mmol/L (5-15); BLOOD UREA NITROGEN 92 mg/dL (7-18); CALCIUM 8.8 MG/DL (8.5-10.1); CHLORIDE 118 MMOL/L (98-107); CREATININE 5.4 MG/DL (0.55-1.30); POTASSIUM 4.4 MMOL/L (3.5-5.1); SODIUM 146 MMOL/L (136-145)
[2018-03-23 17:00] LABS: CARBON DIOXIDE 6 MMOL/L (21-32)
[2018-03-23] MEDS: Sodium Citrate 30ml ORAL SCH ×3 (18:00→23:37)
--- NOTE | 2018-03-23 19:08 | Cardiology Report ---
APPROVED REPORT EKG Measurement Heart [id number] Sinus tachycardia Left anterior fascicular block Septal infarct, age undetermined Lateral infarct, age undetermined Abnormal ECG
--- NOTE | 2018-03-23 19:30 | History and Physical Report ---
DATE OF ADMISSION: 03/22/2018 CHIEF COMPLAINT: The patient is a 63-year-old white male, who presents with chief complaint of altered mental status. HISTORY OF PRESENT ILLNESS: The patient was admitted to [facility] [place] in February 2018. Please see history and physical and discharge summary dictated at that time. The patient was discharged to [facility]. According to staff at [facility], the patient became altered yesterday. The patient had increasing altered mental status over the course of the day. The patient was transferred to [facility] [place]. The patient was found to have leukocytosis. The patient is admitted with leukocytosis and altered mental status to rule out sepsis. REVIEW OF SYSTEMS: Unable to assess secondary to the patient's mental status. PAST MEDICAL HISTORY: Significant for: 1. Chronic renal disease, stage 4. 2. Diabetes type 2. 3. Benign prostatic hypertrophy. 4. Diabetic neuropathy. 5. History of coronary artery disease. 6. 7. History of coronary artery disease. 8. Hyperparathyroidism. 9. Left eye blindness. PAST SURGICAL HISTORY: Significant for: 1. Renal transplant. 2. Pancreas transplant. 3. PTCA with coronary stent placement. CURRENT MEDICATIONS: 1. Amlodipine 5 mg one tablet p.o. daily. 2. Lipitor 10 mg p.o. nightly. 3. Imuran 60 mg p.o. daily. 4. Daptomycin 350 mg . 5. Cymbalta 30 mg p.o. daily. 6. Insulin aspart sliding scale. 7. Levemir 12 units subcutaneously twice daily. 8. Metoprolol 50 mg p.o. twice daily. 9. MiraLAX 17 g p.o. nightly. 10. Renvela 800 mg p.o. three times daily. ALLERGIES: To cefepime. SOCIAL HISTORY: The patient is single. The patient lives at [facility]. The patient denies tobacco or alcohol use. PHYSICAL EXAMINATION: VITAL SIGNS: Temperature 97.6, respirations 18, pulse 95, blood pressure 93/50. GENERAL: The patient is a well-developed, well-nourished, agitated white male. HEENT: Eyes, pupils equal and responsive to light and accommodation. Extraocular movements are intact. NECK: Supple without lymphadenopathy. CHEST: Lungs are clear to auscultation bilaterally without wheezes or rales. CARDIOVASCULAR: Regular rate. S1, S2 are normal without murmurs, rubs, or gallops. ABDOMEN: Soft, nontender, and nondistended. Positive bowel sounds. No evidence of hepatosplenomegaly. Currently, no rebound or guarding noted. EXTREMITIES: Negative for clubbing, cyanosis, or edema. RECTAL: Refused. GENITAL: Refused. NEUROLOGIC: Cranial nerves II through XII are grossly intact without focal deficits. Motor strength is 5/5 bilaterally intact. Deep tendon reflexes are 2+, plantar. LABORATORY STUDIES: WBC 23.3, hemoglobin 9.7, hematocrit 30.6, platelets 540,000. Sodium 144, potassium 3.8, chloride 115, CO2 7, BUN 86, creatinine 5.6, glucose 401. Troponin 0.016. Urine, ketones. Serum acetone was positive. ASSESSMENT: This is a 63-year-old white male with: 1. Altered mental status. 2. Leukocytosis. 3. Uncontrolled diabetes type 2. 4. Ketoacidosis. 5. Renal failure, stage 4. 6. Coronary artery disease. 7. Hypertension. 8. Hypercholesterolemia. 9. Renal/pancreas transplant. TREATMENT: 1. Altered mental status, probably secondary to sepsis. A urine culture is pending. The patient has been started on ertapenem. 2. Leukocytosis probably secondary to urinary tract infection versus sepsis. 3. Uncontrolled diabetes type 2./ketoacidosis. An Endocrinology consultation has been obtained with Dr. Jacques. The patient's current blood sugar is greater than 500. A NovoLog sliding scale has been instituted. 4. Coronary artery disease. 5. Hypertension. The patient is currently hypotensive. Hold amlodipine. 6. Hypercholesterolemia. Continue Lipitor as above. 7. Renal/pancreas transplant. 8. Renal failure, stage 4. A Nephrology consultation has been obtained with Dr. Chambers. Jose Glasgow M.D. DR: Irving JOB#: [id number] CC:
[2018-03-23] MEDS: Metoprolol Succinate XL 25mg tab ORAL SCH (20:20)
[2018-03-23] MEDS: Heparin 5000 units/ml inj SUBQ SCH (20:22)
[2018-03-23 22:40] LABS: ANION GAP 17 mmol/L (5-15); BLOOD UREA NITROGEN 89 mg/dL (7-18); CALCIUM 8.6 MG/DL (8.5-10.1); CARBON DIOXIDE 10 MMOL/L (21-32); CHLORIDE 123 MMOL/L (98-107); CREATININE 5.4 MG/DL (0.55-1.30); POTASSIUM 3.3 MMOL/L (3.5-5.1); SODIUM 150 MMOL/L (136-145)
--- NOTE | 2018-03-23 23:00 | Consultation ---
DATE OF CONSULTATION: 03/23/2018 ENDOCRINOLOGY CONSULTATION CONSULTING PHYSICIAN: Modesto Jacques M.D. REFERRING PHYSICIAN: Jose Glasgow M.D. REASON FOR CONSULTATION: Diabetes ketoacidosis. HISTORY OF PRESENT ILLNESS: The patient is a 63-year-old unfortunate male, well known to me from his numerous previous admissions to [facility]. He resides in a jail facility. He is blind in one eye. He has history of renal transplant which failed and he has history of suicidal attempt with over-insulin ingestion with a prolonged episode of coma few years ago. The patient was admitted to the hospital with severe hyperglycemia and he was admitted to the med/surg. Glucose was out of control. Chemistry is suggestive of diabetic ketoacidosis. Endocrinology was consulted. PAST MEDICAL HISTORY: 1. Type 1 diabetes. 2. Hypertension. 3. COPD. 4. Asthma. 5. Anemia. 6. CVA. 7. Chronic kidney disease. 8. BPH. 9. History of renal transplant. 10. Blindness. MEDICATIONS: Reviewed and reconciled. REVIEW OF SYSTEMS: Unobtainable. FAMILY HISTORY: Noncontributory. SOCIAL HISTORY: residential facility resident. No smoking, alcohol, or drug use. LABORATORY DATA: WBC 23.3, hemoglobin 9, hematocrit 30, platelet of 540,000. Sodium 146, potassium 4.4, chloride 115, bicarbonate 6, BUN 92, creatinine 9.4, anion gap of 22, glucose of 678. Uric acid of 7.3. PHYSICAL EXAMINATION: VITAL SIGNS: Blood pressure is 118/60, heart rate 105, temperature 97.6. HEENT: Blind in the left eye. HEART: Regular. LUNGS: Clear. ABDOMEN: Positive bowel sounds. Soft. EXTREMITIES: +edema. DIAGNOSES: 1. DKA. 2. Sepsis. 3. Acute kidney injury. 4. Encephalopathy. PLAN: 1. Transfer to ICU. 2. Start insulin drip algorithm 2. 3. Monitor electrolytes and treat accordingly. 4. Once the anion gap is closed, we will convert to subcutaneous insulin therapy. I will follow the patient closely during hospital stay. Thank you Dr. Glasgow for the courtesy of this consultation. Modesto Jacques M.D. DR: Ed JOB#: [id number] CC: ELOY
[2018-03-24] VITALS (24 sets, daily range): BP systolic 58–126; BP diastolic 25–75
[2018-03-24] MEDS: Sodium Citrate 30ml ORAL SCH ×4 (05:33→18:00)
[2018-03-24] MEDS: Insulin Rate Change 1 Each MISC PRN ×9 (08:16→18:21)
[2018-03-24] MEDS ORDERED: Lidocaine 1% Plain 30 ml INJ PRN (08:30)
[2018-03-24] MEDS ORDERED: Heparin 2000 units/Ns 1000ml INJ PRN (08:30)
[2018-03-24] MEDS ORDERED: DULoxetine 30mg cap ORAL SCH (09:00)
[2018-03-24 09:20] LABS: HEMATOCRIT 28.9 % (42.0-52.0); HEMOGLOBIN 9.2 G/DL (14.2-18.0); MEAN CORPUSCULAR VOLUME 94 FL (80-99); PLATELET COUNT 415 K/UL (150-450); RED BLOOD COUNT 3.08 M/UL (4.70-6.10); RED CELL DISTRIBUTION WIDTH 16.1 % (11.6-14.8); WHITE BLOOD COUNT 19.2 K/UL (4.8-10.8)
--- NOTE | 2018-03-24 09:34 | Pulmonolgy Critical Care Note ---
Critical Care - Asmt/Plan Problems: (1) Sepsis (2) diabetic keto acidosis (3) Acute renal failure (ARF) (4) Anemia in chronic kidney disease (5) Hyperparathyroidism (6) Suprapubic catheter (7) Coronary heart disease (8) Pulmonary HTN Respiratory: monitor respiratory rate, adjust FIO2 Cardiac: continue to monitor HR/BP Renal: F/U I&O, keep IV fluid Infectious Disease: check cultures, continue antibiotics Gastrointestinal: continue feedings/current rate Endocrine: monitor blood sugar Hematologic: monitor H/H Affect: PRN ativan Prophylaxis: Protonix Notes Reviewed: paving supervisor, cardio, 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, consultants, comp field case managerevent planning manager - Objective Last 24 Hour Vital Signs Date Time Temp Pulse Resp B/P (MAP) Pulse Ox O2 Delivery O2 Flow Rate FiO2 03/24/18 08:00 98.1 92 21 97/65 (76) 100 98.1 03/24/18 08:00 Room Air 03/24/18 07:00 76 18 112/48 (69) 100 03/24/18 06:00 82 18 121/53 (75) 100 03/24/18 05:00 69 18 126/56 (79) 100 03/24/18 04:00 Room Air 03/24/18 04:00 97.9 82 18 110/60 (77) 100 97.9 03/24/18 03:00 89 18 113/48 (69) 100 03/24/18 02:00 84 19 87/41 (56) 100 03/24/18 01:00 69 19 98/36 (56) 100 03/24/18 00:00 Room Air 03/24/18 00:00 98.0 77 19 103/46 (65) 100 98.0 03/23/18 23:00 77 19 114/69 (84) 100 03/23/18 22:00 81 19 110/53 (72) 100 03/23/18 21:00 82 18 118/53 (74) 100 03/23/18 20:20 82 115/62 03/23/18 20:00 98.0 86 18 115/62 (79) 100 98.0 03/23/18 20:00 Room Air 03/23/18 20:00 89 03/23/18 19:00 87 18 118/59 (78) 100 03/23/18 18:00 82 18 92/54 (67) 100 03/23/18 17:00 85 20 90/57 (68) 100 03/23/18 16:00 97.8 86 24 100/46 (64) 100 97.8 03/23/18 16:00 Room Air 03/23/18 13:01 97.6 99 24 108/50 (69) 100 97.6 03/23/18 09:56 Room Air Status: awake, somnolent Condition: critical HEENT: atraumatic Lungs: clear Heart: HR/BP stable, HR/BP unstable Abdomen: soft, non-tender, feeding tube Extremities: edema Decubiti: location Micro: Microbiology Date/Time Source Procedure Growth Status 03/23/18 00:53 Rectum Received Accucheck: 179 Critical Care - Subjective ROS Limited/Unobtainable: Yes Condition: critical EKG Rhythm: Sinus Rhythm I&O: Intake and Output 03/23/18 03/24/18 19:00 07:00 Intake Total 820.5 ml 1204.62 ml Output Total 650 ml 360 ml Balance 170.5 ml 844.62 ml IV Total 820.5 ml 1204.62 ml Output Urine Total 650 ml 360 ml Labs: Laboratory Tests Test 03/23/18 12:30 03/23/18 14:00 03/23/18 14:30 03/23/18 16:20 Glucose Level 678 MG/DL (74-106) #*H 419 MG/DL (74-106) #H Urine Color Pale yellow Urine Appearance Cloudy Urine pH 6 (4.5-8.0) Urine Specific [place] 1.015 (1.005-1.035) Urine Protein 3+ (NEGATIVE) H Urine Glucose (UA) 2+ (NEGATIVE) H Urine Ketones 2+ (NEGATIVE) H Urine Blood 5+ (NEGATIVE) H Urine Nitrite Negative (NEGATIVE) Urine Bilirubin Negative (NEGATIVE) Urine Urobilinogen Normal MG/DL (0.0-1.0) Urine Leukocyte Esterase 3+ (NEGATIVE) H Urine RBC 5-10 /HPF (0 - 0) H Urine WBC Tntc /HPF (0 - 0) H Urine Squamous Epithelial Cells Occasional /LPF Urine Bacteria Few /HPF (NONE) Urine Yeast Many /HPF (NONE) H Urine Random Phosphorus Pending Sodium Level 146 MMOL/L (136-145) H Potassium Level 4.4 MMOL/L (3.5-5.1) Chloride Level 118 MMOL/L (98-107) H Carbon Dioxide Level 6 MMOL/L (21-32) *L Anion Gap 22 mmol/L (5-15) H Blood Urea Nitrogen 92 mg/dL (7-18) H Creatinine 5.4 MG/DL (0.55-1.30) H Estimat Glomerular Filtration Rate 10.7 mL/min (>60) Hemoglobin A1c 6.5 % (4.3-6.0) H Calcium Level 8.8 MG/DL (8.5-10.1) Test 03/23/18 22:05 03/24/18 08:40 Sodium Level 150 MMOL/L (136-145) H Pending Potassium Level 3.3 MMOL/L (3.5-5.1) L Pending Chloride Level 123 MMOL/L (98-107) H Pending Carbon Dioxide Level 10 MMOL/L (21-32) L Pending Anion Gap 17 mmol/L (5-15) H Blood Urea Nitrogen 89 mg/dL (7-18) H Pending Creatinine 5.4 MG/DL (0.55-1.30) H Pending Estimat Glomerular Filtration Rate 10.7 mL/min (>60) Pending Glucose Level 139 MG/DL (74-106) #H Pending Calcium Level 8.6 MG/DL (8.5-10.1) Pending White Blood Count 19.2 K/UL (4.8-10.8) H Red Blood Count 3.08 M/UL (4.70-6.10) L Hemoglobin 9.2 G/DL (14.2-18.0) L Hematocrit 28.9 % (42.0-52.0) L Mean Corpuscular Volume 94 FL (80-99) Mean Corpuscular Hemoglobin 29.8 PG (27.0-31.0) Mean Corpuscular Hemoglobin Concent 31.7 G/DL (32.0-36.0) L Red Cell Distribution Width 16.1 % (11.6-14.8) H Platelet Count 415 K/UL (150-450) Mean Platelet Volume 6.1 FL (6.5-10.1) L Neutrophils (%) (Auto) % (45.0-75.0) Lymphocytes (%) (Auto) % (20.0-45.0) Monocytes (%) (Auto) % (1.0-10.0) Eosinophils (%) (Auto) % (0.0-3.0) Basophils (%) (Auto) % (0.0-2.0) Neutrophils % (Manual) Pending Lymphocytes % (Manual) Pending Platelet Estimate Pending Platelet Morphology Pending Erythrocyte Sedimentation Rate Pending Phosphorus Level Pending Magnesium Level Pending Total Bilirubin Pending Gamma Glutamyl Transpeptidase Pending Aspartate Amino Transf (AST/SGOT) Pending Alanine Aminotransferase (ALT/SGPT) Pending Alkaline Phosphatase Pending Total Creatine Kinase Pending C-Reactive Protein, Quantitative Pending Total Protein Pending Albumin Pending Globulin Pending Lipase Pending Esdras Delgado MD Mar 24, 2018 09:34
[2018-03-24 09:41] LABS: PHOSPHORUS 2.6 MG/DL (2.5-4.9)
[2018-03-24] MEDS ORDERED: Ertapenem 0.5 GM in NS 55 ML IVPB SCH (10:00)
[2018-03-24 10:04] LABS: ALANINE AMINOTRANSFERASE 16 U/L (12-78); ALBUMIN 1.8 G/DL (3.4-5.0); ALBUMIN/GLOBULIN RATIO 0.4 (1.0-2.7); ALKALINE PHOSPHATASE 84 U/L (46-116); ANION GAP 20 mmol/L (5-15); ASPARTATE AMINO TRANSFERASE 18 U/L (15-37); BILIRUBIN,TOTAL 0.3 MG/DL (0.2-1.0); BLOOD UREA NITROGEN 87 mg/dL (7-18); CALCIUM 8.6 MG/DL (8.5-10.1); CHLORIDE 121 MMOL/L (98-107); CREATININE 5.4 MG/DL (0.55-1.30); POTASSIUM 3.8 MMOL/L (3.5-5.1); SODIUM 149 MMOL/L (136-145)
[2018-03-24 10:07] LABS: CREATINE KINASE 201 U/L (26-308); GAMMA GLUTAMYL TRANSPEPTIDASE 15 U/L (5-85)
[2018-03-24 10:09] LABS: CARBON DIOXIDE 8 MMOL/L (21-32)
--- NOTE | 2018-03-24 10:13 | Infectious Diseases Prog Note ---
Assessment/Plan Assessment/Plan 63 yo male who [facility] from a [facility] with increased AMS and sepsis Sepsis WBCs 23, Afebrile - Probable complicated UTI Has suprapubic cath, R/O Bacteremia - Urine Cx and UA pend Acute on Chronic Encephalopathy - Probably due to UTI +/- Hyperglycemia Rash- - Will need to monitor. May be contact, fungal or other HTN DM Asthma COPD Kidney CA Pancreatic CA Anemia CVA CKD BPH Plan: Continue Ertapenem # 2/7pending cultures Clotrimazole cream for the rashes f/u Blood Cx f/u UA and Ucx Monitor CBC and Temps Supportive care We will continue to follow the patient during this hospitalization. Subjective Allergies: Coded Allergies: CEFEPIME (Verified Allergy, Intermediate, Rash, 03/01/18) Tolerates Carbapenem Subjective Patient A/O Transferred to ICU for BS >600 Afebrile Objective Vital Signs Last 24 Hour Vital Signs Date Time Temp Pulse Resp B/P (MAP) Pulse Ox O2 Delivery O2 Flow Rate FiO2 03/24/18 08:00 98.1 92 21 97/65 (76) 100 98.1 03/24/18 08:00 Room Air 03/24/18 07:00 76 18 112/48 (69) 100 03/24/18 06:00 82 18 121/53 (75) 100 03/24/18 05:00 69 18 126/56 (79) 100 03/24/18 04:00 Room Air 03/24/18 04:00 97.9 82 18 110/60 (77) 100 97.9 03/24/18 03:00 89 18 113/48 (69) 100 03/24/18 02:00 84 19 87/41 (56) 100 03/24/18 01:00 69 19 98/36 (56) 100 03/24/18 00:00 Room Air 03/24/18 00:00 98.0 77 19 103/46 (65) 100 98.0 03/23/18 23:00 77 19 114/69 (84) 100 03/23/18 22:00 81 19 110/53 (72) 100 03/23/18 21:00 82 18 118/53 (74) 100 03/23/18 20:20 82 115/62 03/23/18 20:00 98.0 86 18 115/62 (79) 100 98.0 03/23/18 20:00 Room Air 03/23/18 20:00 89 03/23/18 19:00 87 18 118/59 (78) 100 03/23/18 18:00 82 18 92/54 (67) 100 03/23/18 17:00 85 20 90/57 (68) 100 03/23/18 16:00 97.8 86 24 100/46 (64) 100 97.8 03/23/18 16:00 Room Air 03/23/18 13:01 97.6 99 24 108/50 (69) 100 97.6 Height (Feet): 5 Height (Inches): 8.00 Weight (Pounds): 150 Objective Gen: NAD, laying bed. HEENT: NCAT, MMM, EOMI poor dentition LUNGS: CTAB, No W/C, No Accessory muscle use CARDS: RRR, S1, S2, No M/R/G ABD: Soft, Mild nonfocal tenderness, ND, No R/G, + BS : Suprapubic cath no surrounding erythema or purulence Ext: C/C/E, Pulses 2+ B/L (DP, Rad) NEURO: A/O x 0, Strength and Sensation Grossly intact SKIN: warm/dry, skin rash on feet arms and skin folds, Microbiology Date/Time Source Procedure Growth Status 03/23/18 00:53 Rectum Received Laboratory Tests Test 03/23/18 12:30 03/23/18 14:00 03/23/18 14:30 03/23/18 16:20 Glucose Level 678 MG/DL (74-106) #*H 419 MG/DL (74-106) #H Urine Color Pale yellow Urine Appearance Cloudy Urine pH 6 (4.5-8.0) Urine Specific [place] 1.015 (1.005-1.035) Urine Protein 3+ (NEGATIVE) H Urine Glucose (UA) 2+ (NEGATIVE) H Urine Ketones 2+ (NEGATIVE) H Urine Blood 5+ (NEGATIVE) H Urine Nitrite Negative (NEGATIVE) Urine Bilirubin Negative (NEGATIVE) Urine Urobilinogen Normal MG/DL (0.0-1.0) Urine Leukocyte Esterase 3+ (NEGATIVE) H Urine RBC 5-10 /HPF (0 - 0) H Urine WBC Tntc /HPF (0 - 0) H Urine Squamous Epithelial Cells Occasional /LPF Urine Bacteria Few /HPF (NONE) Urine Yeast Many /HPF (NONE) H Urine Random Phosphorus Pending Sodium Level 146 MMOL/L (136-145) H Potassium Level 4.4 MMOL/L (3.5-5.1) Chloride Level 118 MMOL/L (98-107) H Carbon Dioxide Level 6 MMOL/L (21-32) *L Anion Gap 22 mmol/L (5-15) H Blood Urea Nitrogen 92 mg/dL (7-18) H Creatinine 5.4 MG/DL (0.55-1.30) H Estimat Glomerular Filtration Rate 10.7 mL/min (>60) Hemoglobin A1c 6.5 % (4.3-6.0) H Calcium Level 8.8 MG/DL (8.5-10.1) Test 03/23/18 22:05 03/24/18 08:40 Sodium Level 150 MMOL/L (136-145) H 149 MMOL/L (136-145) H Potassium Level 3.3 MMOL/L (3.5-5.1) L 3.8 MMOL/L (3.5-5.1) Chloride Level 123 MMOL/L (98-107) H 121 MMOL/L (98-107) H Carbon Dioxide Level 10 MMOL/L (21-32) L 8 MMOL/L (21-32) *L Anion Gap 17 mmol/L (5-15) H 20 mmol/L (5-15) H Blood Urea Nitrogen 89 mg/dL (7-18) H 87 mg/dL (7-18) H Creatinine 5.4 MG/DL (0.55-1.30) H 5.4 MG/DL (0.55-1.30) H Estimat Glomerular Filtration Rate 10.7 mL/min (>60) 10.7 mL/min (>60) Glucose Level 139 MG/DL (74-106) #H 200 MG/DL (74-106) H Calcium Level 8.6 MG/DL (8.5-10.1) 8.6 MG/DL (8.5-10.1) White Blood Count 19.2 K/UL (4.8-10.8) H Red Blood Count 3.08 M/UL (4.70-6.10) L Hemoglobin 9.2 G/DL (14.2-18.0) L Hematocrit 28.9 % (42.0-52.0) L Mean Corpuscular Volume 94 FL (80-99) Mean Corpuscular Hemoglobin 29.8 PG (27.0-31.0) Mean Corpuscular Hemoglobin Concent 31.7 G/DL (32.0-36.0) L Red Cell Distribution Width 16.1 % (11.6-14.8) H Platelet Count 415 K/UL (150-450) Mean Platelet Volume 6.1 FL (6.5-10.1) L Neutrophils (%) (Auto) % (45.0-75.0) Lymphocytes (%) (Auto) % (20.0-45.0) Monocytes (%) (Auto) % (1.0-10.0) Eosinophils (%) (Auto) % (0.0-3.0) Basophils (%) (Auto) % (0.0-2.0) Neutrophils % (Manual) Pending Lymphocytes % (Manual) Pending Platelet Estimate Pending Platelet Morphology Pending Erythrocyte Sedimentation Rate Pending Phosphorus Level 2.6 MG/DL (2.5-4.9) Magnesium Level 1.8 MG/DL (1.8-2.4) Total Bilirubin 0.3 MG/DL (0.2-1.0) Gamma Glutamyl Transpeptidase 15 U/L (5-85) Aspartate Amino Transf (AST/SGOT) 18 U/L (15-37) Alanine Aminotransferase (ALT/SGPT) 16 U/L (12-78) Alkaline Phosphatase 84 U/L (46-116) Total Creatine Kinase 201 U/L (26-308) C-Reactive Protein, Quantitative 9.0 mg/dL (0.00-0.90) H Total Protein 5.8 G/DL (6.4-8.2) L Albumin 1.8 G/DL (3.4-5.0) L Globulin 4.0 g/dL Albumin/Globulin Ratio 0.4 (1.0-2.7) L Lipase 368 U/L (73-393) Current Medications Medications (Trade) Dose Ordered Sig/Dunia Route PRN Reason Start Time Stop Time Status Last Admin Dose Admin Acetaminophen (Tylenol) 650 mg Q6H PRN ORAL Mild Pain/Temp > 100.5 03/23/18 15:37 04/22/18 15:36 Chlorhexidine Gluconate (Eloisa-Hex 2%) 1 applic DAILY@2000 TOPIC 03/24/18 20:00 04/23/18 19:59 Clotrimazole (Lotrimin) 1 applic THREE TIMES A DAY TOPIC 03/23/18 18:00 04/22/18 17:59 03/23/18 18:00 Dextrose (Dextrose 50%) 25 ml PRN PRN IV HYPOGLYCEMIA 03/23/18 15:45 04/22/18 15:44 03/23/18 23:28 Dextrose (Dextrose 50%) 50 ml PRN PRN IV HYPOGLYCEMIA 03/23/18 15:45 04/22/18 15:44 03/23/18 21:41 Duloxetine HCl (Cymbalta) 30 mg DAILY ORAL 03/24/18 09:00 04/22/18 08:59 Ertapenem 0.5 gm/ Sodium Chloride 55 ml @ 110 mls/hr Q24H IVPB 03/24/18 10:00 03/29/18 09:59 Heparin Sodium (Porcine) (Heparin 5000 units/ml) 5,000 units EVERY 12 HOURS SUBQ 03/23/18 21:00 04/22/18 08:59 03/23/18 20:22 Heparin Sodium/ Sodium Chloride (Heparin 2000 units/Ns 1000ml premix) 2,000 unit ONCE PRN INJ picc line placement 03/24/18 08:30 03/26/18 08:29 Insulin Human Regular (NovoLIN R) 5 units PRN PRN IV BS 200-299 03/23/18 15:45 04/22/18 15:44 03/24/18 08:15 Insulin Human Regular (NovoLIN R) 10 units PRN PRN IV BS=>300 03/23/18 15:45 04/22/18 15:44 Insulin Human Regular 100 units/ Sodium Chloride 101 ml @ 0 mls/hr Q24H IV 03/23/18 22:00 04/22/18 21:59 03/23/18 22:25 Lidocaine HCl (Xylocaine 1% 30ml) 30 ml ONCE PRN INJ picc line placement 03/24/18 08:30 03/26/18 08:29 Metoclopramide HCl (Reglan) 10 mg Q6H PRN IVP Nausea & Vomiting 03/23/18 21:00 04/22/18 08:59 Metoprolol Succinate (Toprol XL) 25 mg Q12HR ORAL 03/23/18 21:00 04/22/18 20:59 03/23/18 20:20 Miscellaneous Medication (Insulin Rate Change) 1 ea PRN PRN MISC To Patient Comfort 03/23/18 15:45 04/22/18 15:44 03/24/18 10:09 Pantoprazole (Protonix) 40 mg DAILY ORAL 03/24/18 09:00 04/23/18 08:59 Sevelamer Carbonate (Renvela) 800 mg THREE TIMES A DAY ORAL 03/23/18 18:00 04/22/18 17:59 03/23/18 18:00 Sodium Bicarbonate 50 ml/ Sodium Chloride 1,050 ml @ 100 mls/hr [id number] IV 03/23/18 15:45 04/22/18 09:59 03/23/18 23:37 Sodium Citrate (Bicitra) 30 ml EVERY 6 HOURS ORAL 03/23/18 18:00 04/22/18 17:59 03/23/18 18:00 William Caputo MD Mar 24, 2018 10:13
[2018-03-24] MEDS: Heparin 5000 units/ml inj SUBQ SCH ×2 (10:30→21:30)
[2018-03-24] MEDS: Metoprolol Succinate XL 25mg tab ORAL SCH ×2 (10:44→21:00)
--- NOTE | 2018-03-24 11:36 | General Progress Note ---
Assessment/Plan Status: stable Assessment/Plan Encephalopathy due to [facility] [place] MDD Anxiety d/o -Cymbalta -Ativan Subjective Neurologic/Psychiatric: Reports: anxiety, depressed, emotional problems Allergies: Coded Allergies: CEFEPIME (Verified Allergy, Intermediate, Rash, 03/01/18) Tolerates Carbapenem Objective Last 24 Hour Vital Signs Date Time Temp Pulse Resp B/P (MAP) Pulse Ox O2 Delivery O2 Flow Rate FiO2 03/24/18 10:44 88 108/49 03/24/18 08:00 98.1 92 21 97/65 (76) 100 98.1 03/24/18 08:00 Room Air 03/24/18 07:00 76 18 112/48 (69) 100 03/24/18 06:00 82 18 121/53 (75) 100 03/24/18 05:00 69 18 126/56 (79) 100 03/24/18 04:00 Room Air 03/24/18 04:00 97.9 82 18 110/60 (77) 100 97.9 03/24/18 03:00 89 18 113/48 (69) 100 03/24/18 02:00 84 19 87/41 (56) 100 03/24/18 01:00 69 19 98/36 (56) 100 03/24/18 00:00 Room Air 03/24/18 00:00 98.0 77 19 103/46 (65) 100 98.0 03/23/18 23:00 77 19 114/69 (84) 100 03/23/18 22:00 81 19 110/53 (72) 100 03/23/18 21:00 82 18 118/53 (74) 100 03/23/18 20:20 82 115/62 03/23/18 20:00 98.0 86 18 115/62 (79) 100 98.0 03/23/18 20:00 Room Air 03/23/18 20:00 89 03/23/18 19:00 87 18 118/59 (78) 100 03/23/18 18:00 82 18 92/54 (67) 100 03/23/18 17:00 85 20 90/57 (68) 100 03/23/18 16:00 97.8 86 24 100/46 (64) 100 97.8 03/23/18 16:00 Room Air 03/23/18 13:01 97.6 99 24 108/50 (69) 100 97.6 Intake and Output 03/23/18 03/24/18 19:00 07:00 Intake Total 820.5 ml 1204.62 ml Output Total 650 ml 360 ml Balance 170.5 ml 844.62 ml IV Total 820.5 ml 1204.62 ml Output Urine Total 650 ml 360 ml Laboratory Tests 03/23/18 12:30: Glucose Level 678#*H 03/23/18 14:00: Urine Color Pale yellow, Urine Appearance Cloudy, Urine pH 6, Urine Specific [place] 1.015, Urine Protein 3+H, Urine Glucose (UA) 2+H, Urine Ketones 2+H, Urine Blood 5+H, Urine Nitrite Negative, Urine Bilirubin Negative, Urine Urobilinogen Normal, Urine Leukocyte Esterase 3+H, Urine RBC 5-10H, Urine WBC TntcH, Urine Squamous Epithelial Cells Occasional, Urine Bacteria Few, Urine Yeast ManyH 03/23/18 14:30: Urine Random Phosphorus [Pending] 03/23/18 16:20: Glucose Level 419#H, Sodium Level 146H, Potassium Level 4.4, Chloride Level 118H , Carbon Dioxide Level 6*L, Anion Gap 22H, Blood Urea Nitrogen 92H, Creatinine 5.4H, Estimat Glomerular Filtration Rate 10.7, Hemoglobin A1c 6.5H, Calcium Level 8.8 03/23/18 22:05: Sodium Level 150H, Potassium Level 3.3L, Chloride Level 123H, Carbon Dioxide Level 10L, Anion Gap 17H, Blood Urea Nitrogen 89H, Creatinine 5.4H, Estimat Glomerular Filtration Rate 10.7, Glucose Level 139#H, Calcium Level 8.6 03/24/18 08:40: Sodium Level 149H, Potassium Level 3.8, Chloride Level 121H, Carbon Dioxide Level 8*L, Anion Gap 20H, Blood Urea Nitrogen 87H, Creatinine 5.4H, Estimat Glomerular Filtration Rate 10.7, Glucose Level 200H, Calcium Level 8.6, White Blood Count 19.2H, Red Blood Count 3.08L, Hemoglobin 9.2L, Hematocrit 28.9L, Mean Corpuscular Volume 94, Mean Corpuscular Hemoglobin 29.8, Mean Corpuscular Hemoglobin Concent 31.7L, Red Cell Distribution Width 16.1H, Platelet Count 415 , Mean Platelet Volume 6.1L, Neutrophils (%) (Auto) , Lymphocytes (%) (Auto) , Monocytes (%) (Auto) , Eosinophils (%) (Auto) , Basophils (%) (Auto) , Differential Total Cells Counted 100, Neutrophils % (Manual) 82H, Lymphocytes % (Manual) 10L, Monocytes % (Manual) 4, Eosinophils % (Manual) 2, Basophils % ( Manual) 0, Band Neutrophils 2, Platelet Estimate Adequate, Platelet Morphology Normal, Hypochromasia 1+, Anisocytosis 1+, Erythrocyte Sedimentation Rate 46H, Phosphorus Level 2.6, Magnesium Level 1.8, Total Bilirubin 0.3, Gamma Glutamyl Transpeptidase 15, Aspartate Amino Transf (AST/SGOT) 18, Alanine Aminotransferase (ALT/SGPT) 16, Alkaline Phosphatase 84, Total Creatine Kinase 201, C-Reactive Protein, Quantitative 9.0H, Total Protein 5.8L, Albumin 1.8L, Globulin 4.0, Albumin/Globulin Ratio 0.4L, Lipase 368 Height (Feet): 5 Height (Inches): 8.00 Weight (Pounds): 150 General Appearance: no apparent distress, alert Neurologic: oriented x 3, responsive, depressed affect Fatmaat Lu MD Mar 24, 2018 11:36
--- NOTE | 2018-03-24 12:13 | Diagnostic Imaging Report ---
Indications: Needs long-term IV access Technique: Procedure performed at bedside. Procedural timeout performed. Ultrasound confirms patent compressible right basilic vein. Total sterile technique, including sterile probe cover and sterile gel, sterile gloves, hand hygiene, hat, mask,, sterile gown, large sterile drape, and preparation with 2% chlorhexidine utilized. Local anesthesia with 1% lidocaine. Under real-time ultrasound guidance, puncture basilic vein using 21-gauge needle, passage 0.018 guidewire, exchange for 5 Cymro peel-away sheath. 5 Cymro Bard dual-lumen power PICC cut to 43 cm. It was inserted through the peel-away sheath. Peel-away sheath and guidewire removed. Catheter fixed to the skin. Both catheter ports aspirated and flushed. Patient tolerated procedure well, without immediate complication. Followup chest x-ray obtained, documents catheter tip position at the cavoatrial junction Impression: Successful bedside placement of right arm PICC under sonographic guidance, as described above.
[2018-03-24] MEDS: Sodium Bicarbonate 50 ML in 1/2 NS 1000ml 1,000 ML IV SCH ×2 (12:19→23:08)
--- NOTE | 2018-03-24 13:30 | Nephrology Progress Note ---
Assessment/Plan Problem List: (1) Acute on chronic renal failure (2) Anemia in chronic kidney disease (3) Acidosis, metabolic (4) BPH (benign prostatic hypertrophy) (5) Suprapubic catheter (6) Encephalopathy acute (7) Kidney transplant status Assessment 1) Anemia in chronic kidney disease (2) Acute on chronic renal failure (3) Psychiatric disturbance (4) Acidosis, metabolic (5) UTI (urinary tract infection) (6) Encephalopathy Acute renal failure on chronic kidney disease Metabolic acidosis and HyperGlycemia h/o Recurrent hematuria history of recurrent UTI Anemia due to acute blood loss( i.e. hematuria) and CKD Leukocytosis Suprapubic catheter Neurogenic bladder BPH Elevated CPK Status post renal pancreatic transplant h/o Elevated lipase Diabetes mellitus type 2 with hx of DKA Hypertension now low BP COPD/asthma Coronary artery disease with history of NSTEMI major depressive disorder with history of suicidal attempt Plan Plan adjust BP meds- Hydrate- Bicarb via IV fluids PO Bicitra mag and KCL as needed BS check and adjustment antibiotics watch Hgb Gastric support patient DNR monitor renal parameters avoid nephrotoxics no dialysis in the past Subjective ROS Limited/Unobtainable: No Constitutional: Reports: malaise, weakness Objective Objective Last 24 Hour Vital Signs Date Time Temp Pulse Resp B/P (MAP) Pulse Ox O2 Delivery O2 Flow Rate FiO2 03/24/18 10:44 88 108/49 03/24/18 08:00 98.1 92 21 97/65 (76) 100 98.1 03/24/18 08:00 Room Air 03/24/18 07:00 76 18 112/48 (69) 100 03/24/18 06:00 82 18 121/53 (75) 100 03/24/18 05:00 69 18 126/56 (79) 100 03/24/18 04:00 Room Air 03/24/18 04:00 97.9 82 18 110/60 (77) 100 97.9 03/24/18 03:00 89 18 113/48 (69) 100 03/24/18 02:00 84 19 87/41 (56) 100 03/24/18 01:00 69 19 98/36 (56) 100 03/24/18 00:00 Room Air 03/24/18 00:00 98.0 77 19 103/46 (65) 100 98.0 03/23/18 23:00 77 19 114/69 (84) 100 03/23/18 22:00 81 19 110/53 (72) 100 03/23/18 21:00 82 18 118/53 (74) 100 03/23/18 20:20 82 115/62 03/23/18 20:00 98.0 86 18 115/62 (79) 100 98.0 03/23/18 20:00 Room Air 03/23/18 20:00 89 03/23/18 19:00 87 18 118/59 (78) 100 03/23/18 18:00 82 18 92/54 (67) 100 03/23/18 17:00 85 20 90/57 (68) 100 03/23/18 16:00 97.8 86 24 100/46 (64) 100 97.8 03/23/18 16:00 Room Air Intake and Output 03/23/18 03/24/18 19:00 07:00 Intake Total 820.5 ml 1204.62 ml Output Total 650 ml 360 ml Balance 170.5 ml 844.62 ml IV Total 820.5 ml 1204.62 ml Output Urine Total 650 ml 360 ml Laboratory Tests 03/23/18 14:00: Urine Color Pale yellow, Urine Appearance Cloudy, Urine pH 6, Urine Specific [place] 1.015, Urine Protein 3+H, Urine Glucose (UA) 2+H, Urine Ketones 2+H, Urine Blood 5+H, Urine Nitrite Negative, Urine Bilirubin Negative, Urine Urobilinogen Normal, Urine Leukocyte Esterase 3+H, Urine RBC 5-10H, Urine WBC TntcH, Urine Squamous Epithelial Cells Occasional, Urine Bacteria Few, Urine Yeast ManyH 03/23/18 14:30: Urine Random Phosphorus [Pending] 03/23/18 16:20: Sodium Level 146H, Potassium Level 4.4, Chloride Level 118H, Carbon Dioxide Level 6*L, Anion Gap 22H, Blood Urea Nitrogen 92H, Creatinine 5.4H, Estimat Glomerular Filtration Rate 10.7, Glucose Level 419#H, Hemoglobin A1c 6.5H, Calcium Level 8.8 03/23/18 22:05: Sodium Level 150H, Potassium Level 3.3L, Chloride Level 123H, Carbon Dioxide Level 10L, Anion Gap 17H, Blood Urea Nitrogen 89H, Creatinine 5.4H, Estimat Glomerular Filtration Rate 10.7, Glucose Level 139#H, Calcium Level 8.6 03/24/18 08:40: White Blood Count 19.2H, Red Blood Count 3.08L, Hemoglobin 9.2L, Hematocrit 28.9L, Mean Corpuscular Volume 94, Mean Corpuscular Hemoglobin 29.8, Mean Corpuscular Hemoglobin Concent 31.7L, Red Cell Distribution Width 16.1H, Platelet Count 415, Mean Platelet Volume 6.1L, Neutrophils (%) (Auto) , Lymphocytes (%) (Auto) , Monocytes (%) (Auto) , Eosinophils (%) (Auto) , Basophils (%) (Auto) , Differential Total Cells Counted 100, Neutrophils % ( Manual) 82H, Lymphocytes % (Manual) 10L, Monocytes % (Manual) 4, Eosinophils % ( Manual) 2, Basophils % (Manual) 0, Band Neutrophils 2, Platelet Estimate Adequate, Platelet Morphology Normal, Hypochromasia 1+, Anisocytosis 1+, Erythrocyte Sedimentation Rate 46H, Sodium Level 149H, Potassium Level 3.8, Chloride Level 121H, Carbon Dioxide Level 8*L, Anion Gap 20H, Blood Urea Nitrogen 87H, Creatinine 5.4H, Estimat Glomerular Filtration Rate 10.7, Glucose Level 200H, Calcium Level 8.6, Phosphorus Level 2.6, Magnesium Level 1.8, Total Bilirubin 0.3, Gamma Glutamyl Transpeptidase 15, Aspartate Amino Transf (AST/ SGOT) 18, Alanine Aminotransferase (ALT/SGPT) 16, Alkaline Phosphatase 84, Total Creatine Kinase 201, C-Reactive Protein, Quantitative 9.0H, Total Protein 5.8L, Albumin 1.8L, Globulin 4.0, Albumin/Globulin Ratio 0.4L, Lipase 368 Height (Feet): 5 Height (Inches): 8.00 Weight (Pounds): 150 General Appearance: lethargic, confused Cardiovascular: normal rate Respiratory/Chest: decreased breath sounds Abdomen: distended Genitourinary/Rectal: other - supra pubic Objective no other change Luis Chambers MD Mar 24, 2018 13:30
[2018-03-24] MEDS ORDERED: Insulin Rate Change 1 Each MISC PRN (16:45)
[2018-03-24] MEDS ORDERED: Insulin Human Regular 100units/ml 3ml IV PRN ×2 (16:45)
--- NOTE | 2018-03-24 17:01 | Internal Med Progress Note ---
Subjective Date of Service: Mar 24, 2018 Physician Name Jose Glasgow Attending Physician Christopher Rosado MD Current Medications Medications (Trade) Dose Ordered Sig/Dunia Route PRN Reason Start Time Stop Time Status Last Admin Dose Admin Acetaminophen (Tylenol) 650 mg Q6H PRN ORAL Mild Pain/Temp > 100.5 03/23/18 15:37 04/22/18 15:36 Chlorhexidine Gluconate (Eloisa-Hex 2%) 1 applic DAILY@2000 TOPIC 03/24/18 20:00 04/23/18 19:59 Clotrimazole (Lotrimin) 1 applic THREE TIMES A DAY TOPIC 03/23/18 18:00 04/22/18 17:59 03/24/18 10:53 Dextrose (Dextrose 50%) 25 ml ONCE PRN IV Hypoglycemia 03/24/18 17:00 04/23/18 16:59 Dextrose (Dextrose 50%) 50 ml ONCE PRN IV hypoglycemia 03/24/18 17:00 04/23/18 16:59 Duloxetine HCl (Cymbalta) 30 mg DAILY ORAL 03/24/18 09:00 04/22/18 08:59 03/24/18 10:44 Ertapenem 0.5 gm/ Sodium Chloride 55 ml @ 110 mls/hr Q24H IVPB 03/24/18 10:00 03/29/18 09:59 03/24/18 12:20 Heparin Sodium (Porcine) (Heparin 5000 units/ml) 5,000 units EVERY 12 HOURS SUBQ 03/23/18 21:00 04/22/18 08:59 03/23/18 20:22 Heparin Sodium/ Sodium Chloride (Heparin 2000 units/Ns 1000ml premix) 2,000 unit ONCE PRN INJ picc line placement 03/24/18 08:30 03/26/18 08:29 Insulin Human Regular (NovoLIN R) 5 units PRN PRN IV BS 200-299 03/24/18 16:45 04/23/18 16:44 Insulin Human Regular (NovoLIN R) 10 units PRN PRN IV BS=>300 03/24/18 16:45 04/23/18 16:44 Insulin Human Regular 100 units/ Sodium Chloride 101 ml @ 0 mls/hr Q24H IV 03/24/18 16:45 04/23/18 16:44 Lidocaine HCl (Xylocaine 1% 30ml) 30 ml ONCE PRN INJ picc line placement 03/24/18 08:30 03/26/18 08:29 Metoclopramide HCl (Reglan) 10 mg Q6H PRN IVP Nausea & Vomiting 03/23/18 21:00 04/22/18 08:59 Metoprolol Succinate (Toprol XL) 25 mg Q12HR ORAL 03/23/18 21:00 04/22/18 20:59 03/24/18 10:44 Miscellaneous Medication (Insulin Rate Change) 1 ea DAILY PRN MISC To Patient Comfort 03/24/18 17:00 04/23/18 16:59 Pantoprazole (Protonix) 40 mg DAILY ORAL 03/24/18 09:00 04/23/18 08:59 03/24/18 10:40 Sodium Bicarbonate 50 ml/ Sodium Chloride 1,050 ml @ 100 mls/hr [id number] IV 03/23/18 15:45 04/22/18 09:59 03/24/18 12:19 Sodium Citrate (Bicitra) 30 ml EVERY 6 HOURS ORAL 03/23/18 18:00 04/22/18 17:59 03/24/18 14:48 Allergies: Coded Allergies: CEFEPIME (Verified Allergy, Intermediate, Rash, 03/01/18) Tolerates Carbapenem ROS Limited/Unobtainable: Yes Subjective 63 YO M admitted with altered mental status. Now diabetic ketoacidosis. Cover for Int Med-Dr Rosado. ICU Objective Last Vital Signs Date Time Temp Pulse Resp B/P (MAP) Pulse Ox O2 Delivery O2 Flow Rate FiO2 03/24/18 16:00 98.8 89 18 101/66 (78) 100 98.8 03/24/18 12:00 Room Air Laboratory Tests Test 03/23/18 22:05 03/24/18 08:40 Sodium Level 150 MMOL/L (136-145) H 149 MMOL/L (136-145) H Potassium Level 3.3 MMOL/L (3.5-5.1) L 3.8 MMOL/L (3.5-5.1) Chloride Level 123 MMOL/L (98-107) H 121 MMOL/L (98-107) H Carbon Dioxide Level 10 MMOL/L (21-32) L 8 MMOL/L (21-32) *L Anion Gap 17 mmol/L (5-15) H 20 mmol/L (5-15) H Blood Urea Nitrogen 89 mg/dL (7-18) H 87 mg/dL (7-18) H Creatinine 5.4 MG/DL (0.55-1.30) H 5.4 MG/DL (0.55-1.30) H Estimat Glomerular Filtration Rate 10.7 mL/min (>60) 10.7 mL/min (>60) Glucose Level 139 MG/DL (74-106) #H 200 MG/DL (74-106) H Calcium Level 8.6 MG/DL (8.5-10.1) 8.6 MG/DL (8.5-10.1) White Blood Count 19.2 K/UL (4.8-10.8) H Red Blood Count 3.08 M/UL (4.70-6.10) L Hemoglobin 9.2 G/DL (14.2-18.0) L Hematocrit 28.9 % (42.0-52.0) L Mean Corpuscular Volume 94 FL (80-99) Mean Corpuscular Hemoglobin 29.8 PG (27.0-31.0) Mean Corpuscular Hemoglobin Concent 31.7 G/DL (32.0-36.0) L Red Cell Distribution Width 16.1 % (11.6-14.8) H Platelet Count 415 K/UL (150-450) Mean Platelet Volume 6.1 FL (6.5-10.1) L Neutrophils (%) (Auto) % (45.0-75.0) Lymphocytes (%) (Auto) % (20.0-45.0) Monocytes (%) (Auto) % (1.0-10.0) Eosinophils (%) (Auto) % (0.0-3.0) Basophils (%) (Auto) % (0.0-2.0) Differential Total Cells Counted 100 Neutrophils % (Manual) 82 % (45-75) H Lymphocytes % (Manual) 10 % (20-45) L Monocytes % (Manual) 4 % (1-10) Eosinophils % (Manual) 2 % (0-3) Basophils % (Manual) 0 % (0-2) Band Neutrophils 2 % (0-8) Platelet Estimate Adequate Platelet Morphology Normal Hypochromasia 1+ Anisocytosis 1+ Erythrocyte Sedimentation Rate 46 MM/HR (0-20) H Phosphorus Level 2.6 MG/DL (2.5-4.9) Magnesium Level 1.8 MG/DL (1.8-2.4) Total Bilirubin 0.3 MG/DL (0.2-1.0) Gamma Glutamyl Transpeptidase 15 U/L (5-85) Aspartate Amino Transf (AST/SGOT) 18 U/L (15-37) Alanine Aminotransferase (ALT/SGPT) 16 U/L (12-78) Alkaline Phosphatase 84 U/L (46-116) Total Creatine Kinase 201 U/L (26-308) C-Reactive Protein, Quantitative 9.0 mg/dL (0.00-0.90) H Total Protein 5.8 G/DL (6.4-8.2) L Albumin 1.8 G/DL (3.4-5.0) L Globulin 4.0 g/dL Albumin/Globulin Ratio 0.4 (1.0-2.7) L Lipase 368 U/L (73-393) Microbiology Date/Time Source Procedure Growth Status 03/23/18 14:00 Urine,Clean Catch Urine Culture - Preliminary Resulted 03/23/18 00:53 Rectum Received Intake and Output 03/23/18 03/24/18 19:00 07:00 Intake Total 820.5 ml 1204.62 ml Output Total 650 ml 360 ml Balance 170.5 ml 844.62 ml IV Total 820.5 ml 1204.62 ml Output Urine Total 650 ml 360 ml Objective PHYSICAL EXAMINATION: GENERAL: The patient is a well-developed, well-nourished, agitated white male. HEENT: Eyes, pupils equal and responsive to light and accommodation. Extraocular movements are intact. NECK: Supple without lymphadenopathy. CHEST: Lungs are clear to auscultation bilaterally without wheezes or rales. CARDIOVASCULAR: Regular rate. S1, S2 are normal without murmurs, rubs, or gallops. ABDOMEN: Soft, nontender, and nondistended. Positive bowel sounds. No evidence of hepatosplenomegaly. Currently, no rebound or guarding noted. EXTREMITIES: Negative for clubbing, cyanosis, or edema. RECTAL: Refused. GENITAL: Refused. NEUROLOGIC: Cranial nerves II through XII are grossly intact without focal deficits. Motor strength is 5/5 bilaterally intact. Deep tendon reflexes are 2+, plantar. Assessment/Plan Problem List: (1) Diabetes mellitus type II, uncontrolled Assessment & Plan: See endocrinology note. (2) HTN (hypertension) Assessment & Plan: Currently hypotensive (3) Hypercholesteremia (4) CKD (chronic kidney disease), stage IV (5) DKA (diabetic ketoacidoses) Assessment & Plan: ICU status; insulin drip-see Endocrinology note. (6) Bladder outlet obstruction Assessment & Plan: S/P suprapubic catrh (7) Encephalopathy acute (8) Retinopathy, diabetic, left eye (9) Sepsis Assessment & Plan: See ID note. Continue ertapenem (10) Hypoparathyroidism (11) Blind left eye (12) Suprapubic catheter (13) BPH (benign prostatic hypertrophy) Status: not improved Jose Glasgow MD Mar 24, 2018 17:01
[2018-03-24 18:28] LABS: ANION GAP 18 mmol/L (5-15); BLOOD UREA NITROGEN 83 mg/dL (7-18); CALCIUM 7.9 MG/DL (8.5-10.1); CARBON DIOXIDE 12 MMOL/L (21-32); CHLORIDE 121 MMOL/L (98-107); POTASSIUM 3.5 MMOL/L (3.5-5.1); SODIUM 151 MMOL/L (136-145)
--- NOTE | 2018-03-24 18:55 | General Progress Note ---
Assessment/Plan Problem List: (1) HTN (hypertension) ICD Codes: I10 - Essential (primary) hypertension SNOMED: 37639289 (2) CKD (chronic kidney disease), stage IV ICD Codes: N18.4 - Chronic kidney disease, stage 4 (severe) SNOMED: 867114267 (3) DKA (diabetic ketoacidoses) ICD Codes: E13.10 - DKA (diabetic ketoacidoses) SNOMED: 33521821 (4) Psychiatric disturbance ICD Codes: F99 - Psychiatric disturbance SNOMED: 16389798 (5) Acidosis, metabolic ICD Codes: E87.2 - Acidosis, metabolic SNOMED: 46771153 (6) Kidney transplant status ICD Codes: Z94.0 - Kidney transplant status SNOMED: 88578658, 210300373 (7) Renal transplant recipient ICD Codes: Z94.0 - Renal transplant recipient SNOMED: 520681015 Assessment/Plan DKA improved - current state of acidosis is due to renal failure open AG is due elevated BUN - start Levemir 10 units bid - stop insulin drip 30 min after Levemir is started - NISS ac / hs - Novolog 4 units ac tid - hold if not eating Subjective ROS Limited/Unobtainable: Yes Allergies: Coded Allergies: CEFEPIME (Verified Allergy, Intermediate, Rash, 03/01/18) Tolerates Carbapenem Subjective agitated - still in icu - on insulin drip Objective Last 24 Hour Vital Signs Date Time Temp Pulse Resp B/P (MAP) Pulse Ox O2 Delivery O2 Flow Rate FiO2 03/24/18 18:00 84 20 96/31 (52) 100 03/24/18 17:00 82 19 58/25 (36) 100 03/24/18 16:00 98.8 89 18 101/66 (78) 100 98.8 03/24/18 16:00 Room Air 03/24/18 15:00 80 19 110/42 (64) 99 03/24/18 13:57 86 17 107/41 (63) 99 03/24/18 13:00 79 20 75/37 (50) 99 03/24/18 12:00 79 20 76/37 (50) 100 03/24/18 12:00 Room Air 03/24/18 11:00 85 20 107/47 (67) 100 03/24/18 10:44 88 108/49 03/24/18 10:00 84 19 108/48 (68) 100 03/24/18 09:00 92 19 108/49 (68) 100 03/24/18 08:00 98.1 92 21 97/65 (76) 100 98.1 03/24/18 08:00 Room Air 03/24/18 07:00 76 18 112/48 (69) 100 03/24/18 06:00 82 18 121/53 (75) 100 03/24/18 05:00 69 18 126/56 (79) 100 03/24/18 04:00 Room Air 03/24/18 04:00 97.9 82 18 110/60 (77) 100 97.9 03/24/18 03:00 89 18 113/48 (69) 100 03/24/18 02:00 84 19 87/41 (56) 100 03/24/18 01:00 69 19 98/36 (56) 100 03/24/18 00:00 Room Air 03/24/18 00:00 98.0 77 19 103/46 (65) 100 98.0 03/23/18 23:00 77 19 114/69 (84) 100 03/23/18 22:00 81 19 110/53 (72) 100 03/23/18 21:00 82 18 118/53 (74) 100 03/23/18 20:20 82 115/62 03/23/18 20:00 98.0 86 18 115/62 (79) 100 98.0 03/23/18 20:00 Room Air 03/23/18 20:00 89 03/23/18 19:00 87 18 118/59 (78) 100 Intake and Output 03/23/18 03/24/18 19:00 07:00 Intake Total 820.5 ml 1204.62 ml Output Total 650 ml 360 ml Balance 170.5 ml 844.62 ml IV Total 820.5 ml 1204.62 ml Output Urine Total 650 ml 360 ml Laboratory Tests 03/23/18 22:05: Sodium Level 150H, Potassium Level 3.3L, Chloride Level 123H, Carbon Dioxide Level 10L, Anion Gap 17H, Blood Urea Nitrogen 89H, Creatinine 5.4H, Estimat Glomerular Filtration Rate 10.7, Glucose Level 139#H, Calcium Level 8.6 03/24/18 08:40: Sodium Level 149H, Potassium Level 3.8, Chloride Level 121H, Carbon Dioxide Level 8*L, Anion Gap 20H, Blood Urea Nitrogen 87H, Creatinine 5.4H, Estimat Glomerular Filtration Rate 10.7, Glucose Level 200H, Calcium Level 8.6, White Blood Count 19.2H, Red Blood Count 3.08L, Hemoglobin 9.2L, Hematocrit 28.9L, Mean Corpuscular Volume 94, Mean Corpuscular Hemoglobin 29.8, Mean Corpuscular Hemoglobin Concent 31.7L, Red Cell Distribution Width 16.1H, Platelet Count 415 , Mean Platelet Volume 6.1L, Neutrophils (%) (Auto) , Lymphocytes (%) (Auto) , Monocytes (%) (Auto) , Eosinophils (%) (Auto) , Basophils (%) (Auto) , Differential Total Cells Counted 100, Neutrophils % (Manual) 82H, Lymphocytes % (Manual) 10L, Monocytes % (Manual) 4, Eosinophils % (Manual) 2, Basophils % ( Manual) 0, Band Neutrophils 2, Platelet Estimate Adequate, Platelet Morphology Normal, Hypochromasia 1+, Anisocytosis 1+, Erythrocyte Sedimentation Rate 46H, Phosphorus Level 2.6, Magnesium Level 1.8, Total Bilirubin 0.3, Gamma Glutamyl Transpeptidase 15, Aspartate Amino Transf (AST/SGOT) 18, Alanine Aminotransferase (ALT/SGPT) 16, Alkaline Phosphatase 84, Total Creatine Kinase 201, C-Reactive Protein, Quantitative 9.0H, Total Protein 5.8L, Albumin 1.8L, Globulin 4.0, Albumin/Globulin Ratio 0.4L, Lipase 368 03/24/18 17:30: Sodium Level 151H, Potassium Level 3.5, Chloride Level 121H, Carbon Dioxide Level 12L, Anion Gap 18H, Blood Urea Nitrogen 83H, Creatinine 5.0H, Estimat Glomerular Filtration Rate 11.7, Glucose Level 111H, Calcium Level 7.9L, Hemoglobin A1c 6.8H Height (Feet): 5 Height (Inches): 8.00 Weight (Pounds): 150 General Appearance: moderate distress Neck: normal alignment Cardiovascular: normal rate Respiratory/Chest: decreased breath sounds Abdomen: normal bowel sounds Objective Current Medications Medications (Trade) Dose Ordered Sig/Dunia Route PRN Reason Start Time Stop Time Status Last Admin Dose Admin Acetaminophen (Tylenol) 650 mg Q6H PRN ORAL Mild Pain/Temp > 100.5 03/23/18 15:37 04/22/18 15:36 Chlorhexidine Gluconate (Eloisa-Hex 2%) 1 applic DAILY@2000 TOPIC 03/24/18 20:00 04/23/18 19:59 Clotrimazole (Lotrimin) 1 applic THREE TIMES A DAY TOPIC 03/23/18 18:00 04/22/18 17:59 03/24/18 10:53 Dextrose (Dextrose 50%) 25 ml ONCE PRN IV Hypoglycemia 03/24/18 17:00 04/23/18 16:59 Dextrose (Dextrose 50%) 50 ml ONCE PRN IV hypoglycemia 03/24/18 17:00 04/23/18 16:59 Duloxetine HCl (Cymbalta) 30 mg DAILY ORAL 03/24/18 09:00 04/22/18 08:59 03/24/18 10:44 Ertapenem 0.5 gm/ Sodium Chloride 55 ml @ 110 mls/hr Q24H IVPB 03/24/18 10:00 03/29/18 09:59 03/24/18 12:20 Heparin Sodium (Porcine) (Heparin 5000 units/ml) 5,000 units EVERY 12 HOURS SUBQ 03/23/18 21:00 04/22/18 08:59 03/23/18 20:22 Heparin Sodium/ Sodium Chloride (Heparin 2000 units/Ns 1000ml premix) 2,000 unit ONCE PRN INJ picc line placement 03/24/18 08:30 03/26/18 08:29 Insulin Human Regular (NovoLIN R) 5 units PRN PRN IV BS 200-299 03/24/18 16:45 04/23/18 16:44 Insulin Human Regular (NovoLIN R) 10 units PRN PRN IV BS=>300 03/24/18 16:45 04/23/18 16:44 Insulin Human Regular 100 units/ Sodium Chloride 101 ml @ 0 mls/hr Q24H IV 03/24/18 16:45 04/23/18 16:44 Lidocaine HCl (Xylocaine 1% 30ml) 30 ml ONCE PRN INJ picc line placement 03/24/18 08:30 03/26/18 08:29 Metoclopramide HCl (Reglan) 10 mg Q6H PRN IVP Nausea & Vomiting 03/23/18 21:00 04/22/18 08:59 Metoprolol Succinate (Toprol XL) 25 mg Q12HR ORAL 03/23/18 21:00 04/22/18 20:59 03/24/18 10:44 Miscellaneous Medication (Insulin Rate Change) 1 ea DAILY PRN MISC To Patient Comfort 03/24/18 17:00 04/23/18 16:59 03/24/18 18:21 Pantoprazole (Protonix) 40 mg DAILY ORAL 03/24/18 09:00 04/23/18 08:59 03/24/18 10:40 Sodium Bicarbonate 50 ml/ Sodium Chloride 1,050 ml @ 100 mls/hr [id number] IV 03/23/18 15:45 04/22/18 09:59 03/24/18 12:19 Sodium Citrate (Bicitra) 30 ml EVERY 6 HOURS ORAL 03/23/18 18:00 04/22/18 17:59 03/24/18 14:48 Item Value Date Time Bedside Blood Glucose 108 mg/dl 03/24/18 1821 Bedside Blood Glucose 150 mg/dl H 03/24/18 1458 Bedside Blood Glucose 147 mg/dl H 03/24/18 1009 Bedside Blood Glucose 99 mg/dl 03/24/18 0600 Bedside Blood Glucose 111 mg/dl 03/24/18 0200 Bedside Blood Glucose 136 mg/dl H 03/23/18 2225 [place] Jacques MD Mar 24, 2018 18:55
[2018-03-24] MEDS ORDERED: Dyna-Hex 2% Top Sol 2oz TOPIC SCH ×2 (20:00)
[2018-03-24] MEDS: NovoLOG Insulin Flexpen SUBQ SCH (20:58)
[2018-03-24] MEDS ORDERED: Levemir Flexpen SUBQ SCH (21:00)
[2018-03-25] VITALS (12 sets, daily range): BP systolic 93–136; BP diastolic 37–82
[2018-03-25] MEDS: NovoLOG Insulin Flexpen SUBQ SCH ×6 (05:55→20:57)
[2018-03-25 05:56] LABS: HEMATOCRIT 24.3 % (42.0-52.0); HEMOGLOBIN 7.8 G/DL (14.2-18.0); MEAN CORPUSCULAR VOLUME 93 FL (80-99); PLATELET COUNT 415 K/UL (150-450); RED BLOOD COUNT 2.62 M/UL (4.70-6.10); RED CELL DISTRIBUTION WIDTH 15.3 % (11.6-14.8); WHITE BLOOD COUNT 18.2 K/UL (4.8-10.8)
[2018-03-25] MEDS: Sodium Citrate 30ml ORAL SCH ×4 (05:56→17:41)
[2018-03-25] MEDS ORDERED: NovoLOG Insulin Flexpen SUBQ SCH (06:30)
[2018-03-25 06:35] LABS: ALANINE AMINOTRANSFERASE 12 U/L (12-78); ALBUMIN 2.1 G/DL (3.4-5.0); ALBUMIN/GLOBULIN RATIO 0.6 (1.0-2.7); ALKALINE PHOSPHATASE 72 U/L (46-116); ANION GAP 16 mmol/L (5-15); ASPARTATE AMINO TRANSFERASE 14 U/L (15-37); BILIRUBIN,TOTAL 0.4 MG/DL (0.2-1.0); BLOOD UREA NITROGEN 82 mg/dL (7-18); CALCIUM 8.3 MG/DL (8.5-10.1); CARBON DIOXIDE 13 MMOL/L (21-32); CHLORIDE 122 MMOL/L (98-107); PHOSPHORUS 3.5 MG/DL (2.5-4.9); POTASSIUM 3.6 MMOL/L (3.5-5.1); SODIUM 151 MMOL/L (136-145)
[2018-03-25 06:41] LABS: LACTATE DEHYDROGENASE 152 U/L (81-234)
--- NOTE | 2018-03-25 06:59 | General Progress Note ---
Assessment/Plan Problem List: (1) HTN (hypertension) ICD Codes: I10 - Essential (primary) hypertension SNOMED: 26112624 (2) CKD (chronic kidney disease), stage IV ICD Codes: N18.4 - Chronic kidney disease, stage 4 (severe) SNOMED: 391639310 (3) DKA (diabetic ketoacidoses) ICD Codes: E13.10 - DKA (diabetic ketoacidoses) SNOMED: 78459146 (4) Psychiatric disturbance ICD Codes: F99 - Psychiatric disturbance SNOMED: 19466483 (5) Acidosis, metabolic ICD Codes: E87.2 - Acidosis, metabolic SNOMED: 72307084 (6) Kidney transplant status ICD Codes: Z94.0 - Kidney transplant status SNOMED: 91408921, 975744926 (7) Renal transplant recipient ICD Codes: Z94.0 - Renal transplant recipient SNOMED: 230241198 Assessment/Plan - continue Levemir 10 units bid - continue NISS ac / hs - Novolog 4 units ac tid - hold if not eating Subjective ROS Limited/Unobtainable: Yes Allergies: Coded Allergies: CEFEPIME (Verified Allergy, Intermediate, Rash, 03/01/18) Tolerates Carbapenem Subjective agitated Objective Last 24 Hour Vital Signs Date Time Temp Pulse Resp B/P (MAP) Pulse Ox O2 Delivery O2 Flow Rate FiO2 03/25/18 06:00 70 17 96/42 (60) 100 03/25/18 05:00 82 17 97/37 (57) 100 03/25/18 04:00 98.0 71 17 136/59 (84) 100 98.0 03/25/18 04:00 Room Air 03/25/18 03:00 70 16 111/44 (66) 100 03/25/18 02:00 70 16 93/47 (62) 100 03/25/18 01:00 83 17 104/82 (89) 100 03/25/18 00:00 97.9 74 18 123/63 (83) 100 97.9 03/25/18 00:00 Room Air 03/24/18 23:00 86 18 124/67 (86) 100 03/24/18 22:00 85 18 120/52 (74) 100 03/24/18 21:00 69 100/63 03/24/18 21:00 69 18 100/63 (75) 100 03/24/18 20:00 79 18 109/75 (86) 100 03/24/18 20:00 Room Air 03/24/18 20:00 67 03/24/18 19:00 97.8 88 20 104/72 (83) 100 97.8 03/24/18 18:00 84 20 96/31 (52) 100 03/24/18 17:00 82 19 58/25 (36) 100 03/24/18 16:00 98.8 89 18 101/66 (78) 100 98.8 03/24/18 16:00 Room Air 03/24/18 15:00 80 19 110/42 (64) 99 03/24/18 13:57 86 17 107/41 (63) 99 03/24/18 13:00 79 20 75/37 (50) 99 03/24/18 12:00 79 20 76/37 (50) 100 03/24/18 12:00 Room Air 03/24/18 11:00 85 20 107/47 (67) 100 03/24/18 10:44 88 108/49 03/24/18 10:00 84 19 108/48 (68) 100 03/24/18 09:00 92 19 108/49 (68) 100 03/24/18 08:00 98.1 92 21 97/65 (76) 100 98.1 03/24/18 08:00 Room Air 03/24/18 07:00 76 18 112/48 (69) 100 Intake and Output 03/24/18 03/25/18 19:00 07:00 Intake Total 1024.60 ml 900 ml Output Total 320 ml 300 ml Balance 704.60 ml 600 ml IV Total 1024.60 ml 900 ml Output Urine Total 320 ml 300 ml # Bowel Movements 1 Laboratory Tests 03/24/18 08:40: White Blood Count 19.2H, Red Blood Count 3.08L, Hemoglobin 9.2L, Hematocrit 28.9L, Mean Corpuscular Volume 94, Mean Corpuscular Hemoglobin 29.8, Mean Corpuscular Hemoglobin Concent 31.7L, Red Cell Distribution Width 16.1H, Platelet Count 415, Mean Platelet Volume 6.1L, Neutrophils (%) (Auto) , Lymphocytes (%) (Auto) , Monocytes (%) (Auto) , Eosinophils (%) (Auto) , Basophils (%) (Auto) , Differential Total Cells Counted 100, Neutrophils % ( Manual) 82H, Lymphocytes % (Manual) 10L, Monocytes % (Manual) 4, Eosinophils % ( Manual) 2, Basophils % (Manual) 0, Band Neutrophils 2, Platelet Estimate Adequate, Platelet Morphology Normal, Hypochromasia 1+, Anisocytosis 1+, Erythrocyte Sedimentation Rate 46H, Sodium Level 149H, Potassium Level 3.8, Chloride Level 121H, Carbon Dioxide Level 8*L, Anion Gap 20H, Blood Urea Nitrogen 87H, Creatinine 5.4H, Estimat Glomerular Filtration Rate 10.7, Glucose Level 200H, Calcium Level 8.6, Phosphorus Level 2.6, Magnesium Level 1.8, Total Bilirubin 0.3, Gamma Glutamyl Transpeptidase 15, Aspartate Amino Transf (AST/ SGOT) 18, Alanine Aminotransferase (ALT/SGPT) 16, Alkaline Phosphatase 84, Total Creatine Kinase 201, C-Reactive Protein, Quantitative 9.0H, Total Protein 5.8L, Albumin 1.8L, Globulin 4.0, Albumin/Globulin Ratio 0.4L, Lipase 368 03/24/18 17:30: Sodium Level 151H, Potassium Level 3.5, Chloride Level 121H, Carbon Dioxide Level 12L, Anion Gap 18H, Blood Urea Nitrogen 83H, Creatinine 5.0H, Estimat Glomerular Filtration Rate 11.7, Glucose Level 111H, Calcium Level 7.9L, Hemoglobin A1c 6.8H 03/25/18 04:30: White Blood Count 18.2H, Red Blood Count 2.62L, Hemoglobin 7.8L, Hematocrit 24.3L, Mean Corpuscular Volume 93, Mean Corpuscular Hemoglobin 29.7, Mean Corpuscular Hemoglobin Concent 32.1, Red Cell Distribution Width 15.3H, Platelet Count 415, Mean Platelet Volume 5.8L, Neutrophils (%) (Auto) , Lymphocytes (%) (Auto) , Monocytes (%) (Auto) , Eosinophils (%) (Auto) , Basophils (%) (Auto) , Neutrophils % (Manual) [Pending], Lymphocytes % (Manual) [Pending], Platelet Estimate [Pending], Platelet Morphology [Pending], Erythrocyte Sedimentation Rate [Pending], Sodium Level 151H, Potassium Level 3.6 , Chloride Level 122H, Carbon Dioxide Level 13L, Anion Gap 16H, Blood Urea Nitrogen 82H, Creatinine 5.0H, Estimat Glomerular Filtration Rate 11.7, Glucose Level 96, Calcium Level 8.3L, Phosphorus Level 3.5, Magnesium Level 1.7L, Total Bilirubin 0.4, Gamma Glutamyl Transpeptidase [Pending], Aspartate Amino Transf ( AST/SGOT) 14L, Alanine Aminotransferase (ALT/SGPT) 12, Alkaline Phosphatase 72, Total Creatine Kinase [Pending], C-Reactive Protein, Quantitative 4.6H, Total Protein 5.4L, Albumin 2.1L, Globulin 3.3, Albumin/Globulin Ratio 0.6L, Reticulocyte Count [Pending], Prothrombin Time 10.3, Prothromb Time International Ratio 1.0, Activated Partial Thromboplast Time 33, Uric Acid [ Pending], Iron Level [Pending], Unsaturated Iron Binding [Pending], Lactate Dehydrogenase 152, Pro-B-Type Natriuretic Peptide [Pending], Carcinoembryonic Antigen [Pending], Vitamin B12 Level [Pending], Folate [Pending] Height (Feet): 5 Height (Inches): 8.00 Weight (Pounds): 150 General Appearance: no apparent distress Neck: normal alignment Cardiovascular: normal rate Respiratory/Chest: decreased breath sounds Abdomen: normal bowel sounds Edema: 1+ Arm (L), 1+ Arm (R), 1+ Leg (L), 1+ Leg (R), 1+ Pedal (L), 1+ Pedal ( R), 1+ Generalized Objective Current Medications Medications (Trade) Dose Ordered Sig/Dunia Route PRN Reason Start Time Stop Time Status Last Admin Dose Admin Acetaminophen (Tylenol) 650 mg Q6H PRN ORAL Mild Pain/Temp > 100.5 03/23/18 15:37 04/22/18 15:36 Chlorhexidine Gluconate (Eloisa-Hex 2%) 1 applic DAILY@1999 TOPIC 03/24/18 20:00 04/23/18 19:59 03/24/18 19:58 Clotrimazole (Lotrimin) 1 applic THREE TIMES A DAY TOPIC 03/23/18 18:00 04/22/18 17:59 03/24/18 10:53 Dextrose (Dextrose 50%) 25 ml STAT PRN IV Hypoglycemia 03/24/18 19:00 04/23/18 18:59 Dextrose (Dextrose 50%) 50 ml STAT PRN IV Hypoglycemia 03/24/18 19:00 04/23/18 18:59 Duloxetine HCl (Cymbalta) 30 mg DAILY ORAL 03/24/18 09:00 04/22/18 08:59 03/24/18 10:44 Ertapenem 0.5 gm/ Sodium Chloride 55 ml @ 110 mls/hr Q24H IVPB 03/24/18 10:00 03/29/18 09:59 03/24/18 12:20 Heparin Sodium (Porcine) (Heparin 5000 units/ml) 5,000 units EVERY 12 HOURS SUBQ 03/23/18 21:00 04/22/18 08:59 03/24/18 21:30 Heparin Sodium/ Sodium Chloride (Heparin 2000 units/Ns 1000ml premix) 2,000 unit ONCE PRN INJ picc line placement 03/24/18 08:30 03/26/18 08:29 Insulin Aspart (NovoLOG) BEFORE MEALS AND HS SUBQ 03/24/18 21:00 04/23/18 20:59 03/24/18 20:58 Insulin Aspart (NovoLOG) 4 units NOVOTIAC SUBQ 03/25/18 06:30 04/24/18 06:29 Insulin Detemir (Levemir) 10 units Q12HR SUBQ 03/24/18 21:00 04/23/18 20:59 03/24/18 20:58 Lidocaine HCl (Xylocaine 1% 30ml) 30 ml ONCE PRN INJ picc line placement 03/24/18 08:30 03/26/18 08:29 Metoclopramide HCl (Reglan) 10 mg Q6H PRN IVP Nausea & Vomiting 03/23/18 21:00 04/22/18 08:59 Metoprolol Succinate (Toprol XL) 25 mg Q12HR ORAL 03/23/18 21:00 04/22/18 20:59 03/24/18 10:44 Pantoprazole (Protonix) 40 mg DAILY ORAL 03/24/18 09:00 04/23/18 08:59 03/24/18 10:40 Sodium Bicarbonate 50 ml/ Sodium Chloride 1,050 ml @ 100 mls/hr [id number] IV 03/23/18 15:45 04/22/18 09:59 03/24/18 23:08 Sodium Citrate (Bicitra) 30 ml EVERY 6 HOURS ORAL 03/23/18 18:00 04/22/18 17:59 03/24/18 14:48 Item Value Date Time Bedside Blood Glucose 103 mg/dl 03/25/18 0600 Bedside Blood Glucose 79 mg/dl 03/25/18 0000 Bedside Blood Glucose 79 mg/dl 03/24/18 2230 Bedside Blood Glucose 108 mg/dl 03/24/18 1821 Bedside Blood Glucose 150 mg/dl H 03/24/18 1458 Bedside Blood Glucose 147 mg/dl H 03/24/18 1009 Bedside Blood Glucose 99 mg/dl 03/24/18 0600 Bedside Blood Glucose 111 mg/dl 03/24/18 0200 [place] Jacques MD Mar 25, 2018 06:59
[2018-03-25 07:49] LABS: CREATINE KINASE 130 U/L (26-308); GAMMA GLUTAMYL TRANSPEPTIDASE 4 U/L (5-85)
[2018-03-25] MEDS ORDERED: Lidocaine 1% Plain 30 ml INJ ONE (08:15)
[2018-03-25] MEDS ORDERED: Heparin 2000 units/Ns 1000ml INJ ONE (08:15)
[2018-03-25 08:16] LABS: % IRON SATURATION 106 % (15-50); IRON 74 ug/dL (50-175); TOTAL IRON BINDING CAPACITY 70 ug/dL (250-450)
[2018-03-25] MEDS: Heparin 5000 units/ml inj SUBQ SCH ×2 (09:00→20:54)
[2018-03-25] MEDS ORDERED: Metoclopramide 10mg/2ml Inj IVP PRN (09:00)
[2018-03-25] MEDS: DULoxetine 30mg cap ORAL SCH (10:03)
[2018-03-25] MEDS: Metoprolol Succinate XL 25mg tab ORAL SCH ×2 (10:03→20:52)
[2018-03-25] MEDS: Levemir Flexpen SUBQ SCH ×2 (10:10→20:55)
[2018-03-25] MEDS: Ertapenem 0.5 GM in NS 55 ML IVPB SCH (10:43)
[2018-03-25] MEDS: Sodium Bicarbonate 50 ML in 1/2 NS 1000ml 1,000 ML IV SCH ×2 (10:43→17:40)
--- NOTE | 2018-03-25 12:31 | Nephrology Progress Note ---
Assessment/Plan Problem List: (1) Acute on chronic renal failure (2) Anemia in chronic kidney disease (3) Acidosis, metabolic (4) BPH (benign prostatic hypertrophy) (5) Suprapubic catheter (6) Encephalopathy acute (7) Kidney transplant status Assessment 1) Anemia in chronic kidney disease (2) Acute on chronic renal failure (3) Psychiatric disturbance (4) Acidosis, metabolic (5) UTI (urinary tract infection) (6) Encephalopathy Acute renal failure on chronic kidney disease Metabolic acidosis and HyperGlycemia h/o Recurrent hematuria history of recurrent UTI Anemia due to acute blood loss( i.e. hematuria) and CKD Leukocytosis Suprapubic catheter Neurogenic bladder BPH Elevated CPK Status post renal pancreatic transplant h/o Elevated lipase Diabetes mellitus type 2 with hx of DKA Hypertension now low BP COPD/asthma Coronary artery disease with history of NSTEMI major depressive disorder with history of suicidal attempt Plan Plan adjust BP meds- Hydrate- Bicarb via IV fluids PO Bicitra mag and KCL as needed BS check and adjustment antibiotics watch Hgb Gastric support patient DNR monitor renal parameters avoid nephrotoxics no dialysis in the past Subjective ROS Limited/Unobtainable: No Constitutional: Reports: malaise, weakness Objective Objective Last 24 Hour Vital Signs Date Time Temp Pulse Resp B/P (MAP) Pulse Ox O2 Delivery O2 Flow Rate FiO2 03/25/18 10:03 72 125/59 03/25/18 08:00 98.2 72 17 125/59 (81) 100 98.2 03/25/18 08:00 Room Air 03/25/18 07:00 72 17 125/39 (67) 100 03/25/18 06:00 70 17 96/42 (60) 100 03/25/18 05:00 82 17 97/37 (57) 100 03/25/18 04:00 98.0 71 17 136/59 (84) 100 98.0 03/25/18 04:00 Room Air 03/25/18 03:00 70 16 111/44 (66) 100 03/25/18 02:00 70 16 93/47 (62) 100 03/25/18 01:00 83 17 104/82 (89) 100 03/25/18 00:00 97.9 74 18 123/63 (83) 100 97.9 03/25/18 00:00 Room Air 03/24/18 23:00 86 18 124/67 (86) 100 03/24/18 22:00 85 18 120/52 (74) 100 03/24/18 21:00 69 100/63 03/24/18 21:00 69 18 100/63 (75) 100 03/24/18 20:00 79 18 109/75 (86) 100 03/24/18 20:00 Room Air 03/24/18 20:00 67 03/24/18 19:00 97.8 88 20 104/72 (83) 100 97.8 03/24/18 18:00 84 20 96/31 (52) 100 03/24/18 17:00 82 19 58/25 (36) 100 03/24/18 16:00 98.8 89 18 101/66 (78) 100 98.8 03/24/18 16:00 Room Air 03/24/18 15:00 80 19 110/42 (64) 99 03/24/18 13:57 86 17 107/41 (63) 99 03/24/18 13:00 79 20 75/37 (50) 99 Intake and Output 03/24/18 03/25/18 19:00 07:00 Intake Total 1024.60 ml 1100 ml Output Total 320 ml 300 ml Balance 704.60 ml 800 ml IV Total 1024.60 ml 1100 ml Output Urine Total 320 ml 300 ml # Bowel Movements 1 Laboratory Tests 03/24/18 17:30: Sodium Level 151H, Potassium Level 3.5, Chloride Level 121H, Carbon Dioxide Level 12L, Anion Gap 18H, Blood Urea Nitrogen 83H, Creatinine 5.0H, Estimat Glomerular Filtration Rate 11.7, Glucose Level 111H, Hemoglobin A1c 6.8H, Calcium Level 7.9L 03/25/18 04:30: Sodium Level 151H, Potassium Level 3.6, Chloride Level 122H, Carbon Dioxide Level 13L, Anion Gap 16H, Blood Urea Nitrogen 82H, Creatinine 5.0H, Estimat Glomerular Filtration Rate 11.7, Glucose Level 96, Calcium Level 8.3L, White Blood Count 18.2H, Red Blood Count 2.62L, Hemoglobin 7.8L, Hematocrit 24.3L, Mean Corpuscular Volume 93, Mean Corpuscular Hemoglobin 29.7, Mean Corpuscular Hemoglobin Concent 32.1, Red Cell Distribution Width 15.3H, Platelet Count 415, Mean Platelet Volume 5.8L, Neutrophils (%) (Auto) , Lymphocytes (%) (Auto) , Monocytes (%) (Auto) , Eosinophils (%) (Auto) , Basophils (%) (Auto) , Differential Total Cells Counted 100, Neutrophils % (Manual) 80H, Lymphocytes % (Manual) 8L, Monocytes % (Manual) 3, Eosinophils % (Manual) 8H, Basophils % ( Manual) 0, Band Neutrophils 1, Platelet Estimate IncreasedH, Platelet Morphology Normal, Hypochromasia 1+, Anisocytosis 1+, Erythrocyte Sedimentation Rate 45H, Reticulocyte Count 2.4H, Prothrombin Time 10.3, Prothromb Time International Ratio 1.0, Activated Partial Thromboplast Time 33, Uric Acid 7.8H , Phosphorus Level 3.5, Magnesium Level 1.7L, Iron Level 74, Total Iron Binding Capacity 70L, Percent Iron Saturation 106H, Unsaturated Iron Binding -4L, Ferritin 832H, Total Bilirubin 0.4, Gamma Glutamyl Transpeptidase 4L, Aspartate Amino Transf (AST/SGOT) 14L, Alanine Aminotransferase (ALT/SGPT) 12, Alkaline Phosphatase 72, Lactate Dehydrogenase 152, Total Creatine Kinase 130, C- Reactive Protein, Quantitative 4.6H, Pro-B-Type Natriuretic Peptide 6240H, Total Protein 5.4L, Albumin 2.1L, Globulin 3.3, Albumin/Globulin Ratio 0.6L, Carcinoembryonic Antigen [Pending], Vitamin B12 Level 609, Folate 5.4L Height (Feet): 5 Height (Inches): 8.00 Weight (Pounds): 150 General Appearance: no apparent distress, lethargic Cardiovascular: normal rate Respiratory/Chest: decreased breath sounds Abdomen: distended Genitourinary/Rectal: other - supra pubic Objective no other change Luis Chambers MD Mar 25, 2018 12:31
--- NOTE | 2018-03-25 13:21 | Infectious Diseases Prog Note ---
Assessment/Plan Assessment/Plan 63 yo male who presents from a half-way with increased AMS and sepsis Sepsis WBCs 23, Afebrile - Probable complicated UTI Has suprapubic cath, R/O Bacteremia - 03/24/18 Urine Cx GNR, GPC Acute on Chronic Encephalopathy - Probably due to UTI +/- Hyperglycemia Rash- - Will need to monitor. May be contact, fungal or other HTN DM Asthma COPD Kidney CA Pancreatic CA Anemia CVA CKD BPH Plan: Continue Ertapenem # 3/7pending cultures Clotrimazole cream for the rashes f/u Blood Cx f/u UA and Ucx Monitor CBC and Temps Supportive care We will continue to follow the patient during this hospitalization. Subjective Allergies: Coded Allergies: CEFEPIME (Verified Allergy, Intermediate, Rash, 03/01/18) Tolerates Carbapenem Subjective Patient A/O Transferred to [facility] from ICU Afebrile Objective Vital Signs Last 24 Hour Vital Signs Date Time Temp Pulse Resp B/P (MAP) Pulse Ox O2 Delivery O2 Flow Rate FiO2 03/25/18 12:00 98.9 78 19 117/51 (73) 97 98.9 03/25/18 10:03 72 125/59 03/25/18 08:00 98.2 72 17 125/59 (81) 100 98.2 03/25/18 08:00 Room Air 03/25/18 07:00 72 17 125/39 (67) 100 03/25/18 06:00 70 17 96/42 (60) 100 03/25/18 05:00 82 17 97/37 (57) 100 03/25/18 04:00 98.0 71 17 136/59 (84) 100 98.0 03/25/18 04:00 Room Air 03/25/18 03:00 70 16 111/44 (66) 100 03/25/18 02:00 70 16 93/47 (62) 100 03/25/18 01:00 83 17 104/82 (89) 100 03/25/18 00:00 97.9 74 18 123/63 (83) 100 97.9 03/25/18 00:00 Room Air 03/24/18 23:00 86 18 124/67 (86) 100 03/24/18 22:00 85 18 120/52 (74) 100 03/24/18 21:00 69 100/63 03/24/18 21:00 69 18 100/63 (75) 100 03/24/18 20:00 79 18 109/75 (86) 100 03/24/18 20:00 Room Air 03/24/18 20:00 67 03/24/18 19:00 97.8 88 20 104/72 (83) 100 97.8 03/24/18 18:00 84 20 96/31 (52) 100 03/24/18 17:00 82 19 58/25 (36) 100 03/24/18 16:00 98.8 89 18 101/66 (78) 100 98.8 03/24/18 16:00 Room Air 03/24/18 15:00 80 19 110/42 (64) 99 03/24/18 13:57 86 17 107/41 (63) 99 Height (Feet): 5 Height (Inches): 8.00 Weight (Pounds): 150 Objective Gen: NAD, laying bed, Calm HEENT: NCAT, MMM, EOMI poor dentition LUNGS: CTAB, No W/C, No Accessory muscle use CARDS: RRR, S1, S2, No M/R/G ABD: Soft, Mild nonfocal tenderness, ND, No R/G, + BS : Suprapubic cath no surrounding erythema or purulence NEURO: A/O x 1, Strength and Sensation Grossly intact SKIN: warm/dry, skin rash on feet arms and skin folds stable Microbiology Date/Time Source Procedure Growth Status 03/23/18 12:35 Blood Blood Culture - Preliminary NO GROWTH AFTER 24 HOURS Resulted 03/23/18 12:30 Blood Blood Culture - Preliminary NO GROWTH AFTER 24 HOURS Resulted 03/23/18 00:53 Nasal Nares MRSA Culture - Final NO METHICILLIN RESISTANT STAPH AUREUS... Complete 03/23/18 14:00 Urine,Clean Catch Urine Culture - Preliminary Gram Negative Bacillus 1 Gram Positive Cocci Resulted 03/23/18 00:53 Rectum - Final NO CARBAPENEM-RESISTANT ENTEROBACTERI... Complete 03/23/18 00:53 Rectum VRE Culture - Final Enterococcus Faecalis - Vre Enterococcus Faecium - Vre Complete Laboratory Tests Test 03/24/18 17:30 03/25/18 04:30 Sodium Level 151 MMOL/L (136-145) H 151 MMOL/L (136-145) H Potassium Level 3.5 MMOL/L (3.5-5.1) 3.6 MMOL/L (3.5-5.1) Chloride Level 121 MMOL/L (98-107) H 122 MMOL/L (98-107) H Carbon Dioxide Level 12 MMOL/L (21-32) L 13 MMOL/L (21-32) L Anion Gap 18 mmol/L (5-15) H 16 mmol/L (5-15) H Blood Urea Nitrogen 83 mg/dL (7-18) H 82 mg/dL (7-18) H Creatinine 5.0 MG/DL (0.55-1.30) H 5.0 MG/DL (0.55-1.30) H Estimat Glomerular Filtration Rate 11.7 mL/min (>60) 11.7 mL/min (>60) Glucose Level 111 MG/DL (74-106) H 96 MG/DL (74-106) Hemoglobin A1c 6.8 % (4.3-6.0) H Calcium Level 7.9 MG/DL (8.5-10.1) L 8.3 MG/DL (8.5-10.1) L White Blood Count 18.2 K/UL (4.8-10.8) H Red Blood Count 2.62 M/UL (4.70-6.10) L Hemoglobin 7.8 G/DL (14.2-18.0) L Hematocrit 24.3 % (42.0-52.0) L Mean Corpuscular Volume 93 FL (80-99) Mean Corpuscular Hemoglobin 29.7 PG (27.0-31.0) Mean Corpuscular Hemoglobin Concent 32.1 G/DL (32.0-36.0) Red Cell Distribution Width 15.3 % (11.6-14.8) H Platelet Count 415 K/UL (150-450) Mean Platelet Volume 5.8 FL (6.5-10.1) L Neutrophils (%) (Auto) % (45.0-75.0) Lymphocytes (%) (Auto) % (20.0-45.0) Monocytes (%) (Auto) % (1.0-10.0) Eosinophils (%) (Auto) % (0.0-3.0) Basophils (%) (Auto) % (0.0-2.0) Differential Total Cells Counted 100 Neutrophils % (Manual) 80 % (45-75) H Lymphocytes % (Manual) 8 % (20-45) L Monocytes % (Manual) 3 % (1-10) Eosinophils % (Manual) 8 % (0-3) H Basophils % (Manual) 0 % (0-2) Band Neutrophils 1 % (0-8) Platelet Estimate Increased H Platelet Morphology Normal Hypochromasia 1+ Anisocytosis 1+ Erythrocyte Sedimentation Rate 45 MM/HR (0-20) H Reticulocyte Count 2.4 % (0.0-2.0) H Prothrombin Time 10.3 SEC (9.30-11.50) Prothromb Time International Ratio 1.0 (0.9-1.1) Activated Partial Thromboplast Time 33 SEC (23-33) Uric Acid 7.8 MG/DL (2.6-7.2) H Phosphorus Level 3.5 MG/DL (2.5-4.9) Magnesium Level 1.7 MG/DL (1.8-2.4) L Iron Level 74 ug/dL (50-175) Total Iron Binding Capacity 70 ug/dL (250-450) L Percent Iron Saturation 106 % (15-50) H Unsaturated Iron Binding -4 ug/dL (112-346) L Ferritin 832 NG/ML (8-388) H Total Bilirubin 0.4 MG/DL (0.2-1.0) Gamma Glutamyl Transpeptidase 4 U/L (5-85) L Aspartate Amino Transf (AST/SGOT) 14 U/L (15-37) L Alanine Aminotransferase (ALT/SGPT) 12 U/L (12-78) Alkaline Phosphatase 72 U/L (46-116) Lactate Dehydrogenase 152 U/L (81-234) Total Creatine Kinase 130 U/L (26-308) C-Reactive Protein, Quantitative 4.6 mg/dL (0.00-0.90) H Pro-B-Type Natriuretic Peptide 6240 pg/mL (0-125) H Total Protein 5.4 G/DL (6.4-8.2) L Albumin 2.1 G/DL (3.4-5.0) L Globulin 3.3 g/dL Albumin/Globulin Ratio 0.6 (1.0-2.7) L Carcinoembryonic Antigen Pending Vitamin B12 Level 609 PG/ML (193-986) Folate 5.4 NG/ML (8.6-58.9) L Current Medications Medications (Trade) Dose Ordered Sig/Dunia Route PRN Reason Start Time Stop Time Status Last Admin Dose Admin Acetaminophen (Tylenol) 650 mg Q6H PRN ORAL Mild Pain/Temp > 100.5 03/25/18 08:00 04/22/18 07:59 Chlorhexidine Gluconate (Eloisa-Hex 2%) 1 applic DAILY@2000 TOPIC 03/25/18 20:00 04/23/18 19:59 Clotrimazole (Lotrimin) 1 applic THREE TIMES A DAY TOPIC 03/25/18 09:00 04/22/18 17:59 03/25/18 13:06 Dextrose (Dextrose 50%) 25 ml STAT PRN IV Hypoglycemia 03/25/18 09:00 04/23/18 08:59 Dextrose (Dextrose 50%) 50 ml STAT PRN IV Hypoglycemia 03/25/18 09:00 04/23/18 08:59 Duloxetine HCl (Cymbalta) 30 mg DAILY ORAL 03/25/18 09:00 04/22/18 08:59 03/25/18 10:03 Ertapenem 0.5 gm/ Sodium Chloride 55 ml @ 110 mls/hr Q24H IVPB 03/25/18 10:00 03/29/18 09:59 03/25/18 10:43 Folic Acid (Folate) 2 mg DAILY ORAL 03/25/18 09:00 04/24/18 08:59 03/25/18 10:04 Heparin Sodium (Porcine) (Heparin 5000 units/ml) 5,000 units EVERY 12 HOURS SUBQ 03/25/18 09:00 04/22/18 08:59 Insulin Aspart (NovoLOG) BEFORE MEALS AND HS SUBQ 03/25/18 11:30 04/23/18 20:59 03/25/18 12:31 Insulin Aspart (NovoLOG) 4 units NOVOTIAC SUBQ 03/25/18 11:50 04/24/18 06:29 03/25/18 12:30 Insulin Detemir (Levemir) 10 units Q12HR SUBQ 03/25/18 09:00 04/23/18 20:59 03/25/18 10:10 Metoclopramide HCl (Reglan) 10 mg Q6H PRN IVP Nausea & Vomiting 03/25/18 09:00 04/22/18 08:59 Metoprolol Succinate (Toprol XL) 25 mg Q12HR ORAL 03/25/18 09:00 04/22/18 20:59 03/25/18 10:03 Pantoprazole (Protonix) 40 mg DAILY ORAL 03/25/18 09:00 04/23/18 08:59 03/25/18 10:04 Sodium Bicarbonate 50 ml/ Sodium Chloride 1,050 ml @ 100 mls/hr [id number] IV 03/25/18 08:15 04/22/18 09:59 03/25/18 10:43 Sodium Citrate (Bicitra) 30 ml EVERY 6 HOURS ORAL 03/25/18 12:00 04/22/18 17:59 03/25/18 12:29 William Caputo MD Mar 25, 2018 13:21
--- NOTE | 2018-03-25 14:25 | Pulmonology Progress Note ---
Assessment/Plan Problems: (1) Encephalopathy acute (2) Acute on chronic renal failure (3) Sepsis (4) Acute hyperglycemia (5) Hypoparathyroidism (6) Pulmonary HTN (7) Psychiatric disturbance (8) Renal transplant recipient Assessment/Plan improving BS better WBC lower continue abx check cultures endo is following dvt prophylaxis Subjective ROS Limited/Unobtainable: No Interval Events: more awake Allergies: Coded Allergies: CEFEPIME (Verified Allergy, Intermediate, Rash, 03/01/18) Tolerates Carbapenem Objective Last 24 Hour Vital Signs Date Time Temp Pulse Resp B/P (MAP) Pulse Ox O2 Delivery O2 Flow Rate FiO2 03/25/18 12:00 98.9 78 19 117/51 (73) 97 98.9 03/25/18 10:03 72 125/59 03/25/18 08:00 98.2 72 17 125/59 (81) 100 98.2 03/25/18 08:00 Room Air 03/25/18 07:00 72 17 125/39 (67) 100 03/25/18 06:00 70 17 96/42 (60) 100 03/25/18 05:00 82 17 97/37 (57) 100 03/25/18 04:00 98.0 71 17 136/59 (84) 100 98.0 03/25/18 04:00 Room Air 03/25/18 03:00 70 16 111/44 (66) 100 03/25/18 02:00 70 16 93/47 (62) 100 03/25/18 01:00 83 17 104/82 (89) 100 03/25/18 00:00 97.9 74 18 123/63 (83) 100 97.9 03/25/18 00:00 Room Air 03/24/18 23:00 86 18 124/67 (86) 100 03/24/18 22:00 85 18 120/52 (74) 100 03/24/18 21:00 69 100/63 03/24/18 21:00 69 18 100/63 (75) 100 03/24/18 20:00 79 18 109/75 (86) 100 03/24/18 20:00 Room Air 03/24/18 20:00 67 03/24/18 19:00 97.8 88 20 104/72 (83) 100 97.8 03/24/18 18:00 84 20 96/31 (52) 100 03/24/18 17:00 82 19 58/25 (36) 100 03/24/18 16:00 98.8 89 18 101/66 (78) 100 98.8 03/24/18 16:00 Room Air 03/24/18 15:00 80 19 110/42 (64) 99 Intake and Output 03/24/18 03/25/18 19:00 07:00 Intake Total 1024.60 ml 1100 ml Output Total 320 ml 300 ml Balance 704.60 ml 800 ml IV Total 1024.60 ml 1100 ml Output Urine Total 320 ml 300 ml # Bowel Movements 1 General Appearance: WD/WN HEENT: normocephalic Respiratory/Chest: chest wall non-tender, lungs clear Cardiovascular: normal peripheral pulses, normal rate Abdomen: normal bowel sounds, soft, non tender Genitourinary: normal external genitalia Extremities: no clubbing Skin: no ulcers Neurologic/Psychiatric: no motor/sensory deficits, oriented x 3 Microbiology Date/Time Source Procedure Growth Status 03/23/18 12:35 Blood Blood Culture - Preliminary NO GROWTH AFTER 24 HOURS Resulted 03/23/18 12:30 Blood Blood Culture - Preliminary NO GROWTH AFTER 24 HOURS Resulted 03/23/18 00:53 Nasal Nares MRSA Culture - Final NO METHICILLIN RESISTANT STAPH AUREUS... Complete 03/23/18 14:00 Urine,Clean Catch Urine Culture - Preliminary Gram Negative Bacillus 1 Gram Positive Cocci Resulted 03/23/18 00:53 Rectum - Final NO CARBAPENEM-RESISTANT ENTEROBACTERI... Complete 03/23/18 00:53 Rectum VRE Culture - Final Enterococcus Faecalis - Vre Enterococcus Faecium - Vre Complete Laboratory Tests 03/24/18 17:30: Sodium Level 151H, Potassium Level 3.5, Chloride Level 121H, Carbon Dioxide Level 12L, Anion Gap 18H, Blood Urea Nitrogen 83H, Creatinine 5.0H, Estimat Glomerular Filtration Rate 11.7, Glucose Level 111H, Hemoglobin A1c 6.8H, Calcium Level 7.9L 03/25/18 04:30: Sodium Level 151H, Potassium Level 3.6, Chloride Level 122H, Carbon Dioxide Level 13L, Anion Gap 16H, Blood Urea Nitrogen 82H, Creatinine 5.0H, Estimat Glomerular Filtration Rate 11.7, Glucose Level 96, Calcium Level 8.3L, White Blood Count 18.2H, Red Blood Count 2.62L, Hemoglobin 7.8L, Hematocrit 24.3L, Mean Corpuscular Volume 93, Mean Corpuscular Hemoglobin 29.7, Mean Corpuscular Hemoglobin Concent 32.1, Red Cell Distribution Width 15.3H, Platelet Count 415, Mean Platelet Volume 5.8L, Neutrophils (%) (Auto) , Lymphocytes (%) (Auto) , Monocytes (%) (Auto) , Eosinophils (%) (Auto) , Basophils (%) (Auto) , Differential Total Cells Counted 100, Neutrophils % (Manual) 80H, Lymphocytes % (Manual) 8L, Monocytes % (Manual) 3, Eosinophils % (Manual) 8H, Basophils % ( Manual) 0, Band Neutrophils 1, Other Cell Type , Platelet Estimate IncreasedH, Platelet Morphology Normal, Hypochromasia 1+, Anisocytosis 1+, Erythrocyte Sedimentation Rate 45H, Reticulocyte Count 2.4H, Prothrombin Time 10.3, Prothromb Time International Ratio 1.0, Activated Partial Thromboplast Time 33, Uric Acid 7.8H, Phosphorus Level 3.5, Magnesium Level 1.7L, Iron Level 74, Total Iron Binding Capacity 70L, Percent Iron Saturation 106H, Unsaturated Iron Binding -4L, Ferritin 832H, Total Bilirubin 0.4, Gamma Glutamyl Transpeptidase 4L, Aspartate Amino Transf (AST/SGOT) 14L, Alanine Aminotransferase (ALT/SGPT) 12, Alkaline Phosphatase 72, Lactate Dehydrogenase 152, Total Creatine Kinase 130, C-Reactive Protein, Quantitative 4.6H, Pro-B-Type Natriuretic Peptide 6240H , Total Protein 5.4L, Albumin 2.1L, Globulin 3.3, Albumin/Globulin Ratio 0.6L, Carcinoembryonic Antigen [Pending], Vitamin B12 Level 609, Folate 5.4L Current Medications Medications (Trade) Dose Ordered Sig/Dunia Route PRN Reason Start Time Stop Time Status Last Admin Dose Admin Acetaminophen (Tylenol) 650 mg Q6H PRN ORAL Mild Pain/Temp > 100.5 03/25/18 08:00 04/22/18 07:59 Chlorhexidine Gluconate (Eloisa-Hex 2%) 1 applic DAILY@1999 TOPIC 03/25/18 20:00 04/23/18 19:59 Clotrimazole (Lotrimin) 1 applic THREE TIMES A DAY TOPIC 03/25/18 09:00 04/22/18 17:59 03/25/18 13:06 Dextrose (Dextrose 50%) 25 ml STAT PRN IV Hypoglycemia 03/25/18 09:00 04/23/18 08:59 Dextrose (Dextrose 50%) 50 ml STAT PRN IV Hypoglycemia 03/25/18 09:00 04/23/18 08:59 Duloxetine HCl (Cymbalta) 30 mg DAILY ORAL 03/25/18 09:00 04/22/18 08:59 03/25/18 10:03 Ertapenem 0.5 gm/ Sodium Chloride 55 ml @ 110 mls/hr Q24H IVPB 03/25/18 10:00 03/29/18 09:59 03/25/18 10:43 Folic Acid (Folate) 2 mg DAILY ORAL 03/25/18 09:00 04/24/18 08:59 03/25/18 10:04 Heparin Sodium (Porcine) (Heparin 5000 units/ml) 5,000 units EVERY 12 HOURS SUBQ 03/25/18 09:00 04/22/18 08:59 Insulin Aspart (NovoLOG) BEFORE MEALS AND HS SUBQ 03/25/18 11:30 04/23/18 20:59 03/25/18 12:31 Insulin Aspart (NovoLOG) 4 units NOVOTIAC SUBQ 03/25/18 11:50 04/24/18 06:29 03/25/18 12:30 Insulin Detemir (Levemir) 10 units Q12HR SUBQ 03/25/18 09:00 04/23/18 20:59 03/25/18 10:10 Metoclopramide HCl (Reglan) 10 mg Q6H PRN IVP Nausea & Vomiting 03/25/18 09:00 04/22/18 08:59 Metoprolol Succinate (Toprol XL) 25 mg Q12HR ORAL 03/25/18 09:00 04/22/18 20:59 03/25/18 10:03 Pantoprazole (Protonix) 40 mg DAILY ORAL 03/25/18 09:00 04/23/18 08:59 03/25/18 10:04 Sodium Bicarbonate 50 ml/ Sodium Chloride 1,050 ml @ 100 mls/hr [id number] IV 03/25/18 08:15 04/22/18 09:59 03/25/18 10:43 Sodium Citrate (Bicitra) 30 ml EVERY 6 HOURS ORAL 03/25/18 12:00 04/22/18 17:59 03/25/18 12:29 Esdras Delgado MD Mar 25, 2018 14:25
--- NOTE | 2018-03-25 19:01 | Internal Med Progress Note ---
Subjective Date of Service: Mar 25, 2018 Physician Name Jose Glasgow Attending Physician Christopher Rosado MD Current Medications Medications (Trade) Dose Ordered Sig/Dunia Route PRN Reason Start Time Stop Time Status Last Admin Dose Admin Acetaminophen (Tylenol) 650 mg Q6H PRN ORAL Mild Pain/Temp > 100.5 03/25/18 08:00 04/22/18 07:59 Chlorhexidine Gluconate (Eloisa-Hex 2%) 1 applic DAILY@1999 TOPIC 03/25/18 20:00 04/23/18 19:59 Clotrimazole (Lotrimin) 1 applic THREE TIMES A DAY TOPIC 03/25/18 09:00 04/22/18 17:59 03/25/18 17:40 Dextrose (Dextrose 50%) 25 ml STAT PRN IV Hypoglycemia 03/25/18 09:00 04/23/18 08:59 Dextrose (Dextrose 50%) 50 ml STAT PRN IV Hypoglycemia 03/25/18 09:00 04/23/18 08:59 Duloxetine HCl (Cymbalta) 30 mg DAILY ORAL 03/25/18 09:00 04/22/18 08:59 03/25/18 10:03 Ertapenem 0.5 gm/ Sodium Chloride 55 ml @ 110 mls/hr Q24H IVPB 03/25/18 10:00 03/29/18 09:59 03/25/18 10:43 Folic Acid (Folate) 2 mg DAILY ORAL 03/25/18 09:00 04/24/18 08:59 03/25/18 10:04 Heparin Sodium (Porcine) (Heparin 5000 units/ml) 5,000 units EVERY 12 HOURS SUBQ 03/25/18 09:00 04/22/18 08:59 Insulin Aspart (NovoLOG) BEFORE MEALS AND HS SUBQ 03/25/18 11:30 04/23/18 20:59 03/25/18 12:31 Insulin Aspart (NovoLOG) 4 units NOVOTIAC SUBQ 03/25/18 11:50 04/24/18 06:29 03/25/18 12:30 Insulin Detemir (Levemir) 10 units Q12HR SUBQ 03/25/18 09:00 04/23/18 20:59 03/25/18 10:10 Metoclopramide HCl (Reglan) 10 mg Q6H PRN IVP Nausea & Vomiting 03/25/18 09:00 04/22/18 08:59 Metoprolol Succinate (Toprol XL) 25 mg Q12HR ORAL 03/25/18 09:00 04/22/18 20:59 03/25/18 10:03 Pantoprazole (Protonix) 40 mg DAILY ORAL 03/25/18 09:00 04/23/18 08:59 03/25/18 10:04 Sodium Bicarbonate 50 ml/ Sodium Chloride 1,050 ml @ 100 mls/hr [id number] IV 03/25/18 08:15 04/22/18 09:59 03/25/18 17:40 Sodium Citrate (Bicitra) 30 ml EVERY 6 HOURS ORAL 03/25/18 12:00 04/22/18 17:59 03/25/18 12:29 Allergies: Coded Allergies: CEFEPIME (Verified Allergy, Intermediate, Rash, 03/01/18) Tolerates Carbapenem ROS Limited/Unobtainable: No Constitutional: Reports: no symptoms HEENT: Reports: no symptoms Cardiovascular: Reports: no symptoms Respiratory: Reports: no symptoms Gastrointestinal/Abdominal: Reports: no symptoms Neurologic/Psychiatric: Reports: no symptoms Subjective 63 YO M admitted with altered mental status. Now diabetic ketoacidosis. Cover for Int Med-Dr Rosado. Objective Last Vital Signs Date Time Temp Pulse Resp B/P (MAP) Pulse Ox O2 Delivery O2 Flow Rate FiO2 03/25/18 16:00 97.8 76 18 121/60 (80) 98 97.8 03/25/18 08:00 Room Air Laboratory Tests Test 03/25/18 04:30 White Blood Count 18.2 K/UL (4.8-10.8) H Red Blood Count 2.62 M/UL (4.70-6.10) L Hemoglobin 7.8 G/DL (14.2-18.0) L Hematocrit 24.3 % (42.0-52.0) L Mean Corpuscular Volume 93 FL (80-99) Mean Corpuscular Hemoglobin 29.7 PG (27.0-31.0) Mean Corpuscular Hemoglobin Concent 32.1 G/DL (32.0-36.0) Red Cell Distribution Width 15.3 % (11.6-14.8) H Platelet Count 415 K/UL (150-450) Mean Platelet Volume 5.8 FL (6.5-10.1) L Neutrophils (%) (Auto) % (45.0-75.0) Lymphocytes (%) (Auto) % (20.0-45.0) Monocytes (%) (Auto) % (1.0-10.0) Eosinophils (%) (Auto) % (0.0-3.0) Basophils (%) (Auto) % (0.0-2.0) Differential Total Cells Counted 100 Neutrophils % (Manual) 80 % (45-75) H Lymphocytes % (Manual) 8 % (20-45) L Monocytes % (Manual) 3 % (1-10) Eosinophils % (Manual) 8 % (0-3) H Basophils % (Manual) 0 % (0-2) Band Neutrophils 1 % (0-8) Other Cell Type Platelet Estimate Increased H Platelet Morphology Normal Hypochromasia 1+ Anisocytosis 1+ Erythrocyte Sedimentation Rate 45 MM/HR (0-20) H Reticulocyte Count 2.4 % (0.0-2.0) H Prothrombin Time 10.3 SEC (9.30-11.50) Prothromb Time International Ratio 1.0 (0.9-1.1) Activated Partial Thromboplast Time 33 SEC (23-33) Sodium Level 151 MMOL/L (136-145) H Potassium Level 3.6 MMOL/L (3.5-5.1) Chloride Level 122 MMOL/L (98-107) H Carbon Dioxide Level 13 MMOL/L (21-32) L Anion Gap 16 mmol/L (5-15) H Blood Urea Nitrogen 82 mg/dL (7-18) H Creatinine 5.0 MG/DL (0.55-1.30) H Estimat Glomerular Filtration Rate 11.7 mL/min (>60) Glucose Level 96 MG/DL (74-106) Uric Acid 7.8 MG/DL (2.6-7.2) H Calcium Level 8.3 MG/DL (8.5-10.1) L Phosphorus Level 3.5 MG/DL (2.5-4.9) Magnesium Level 1.7 MG/DL (1.8-2.4) L Iron Level 74 ug/dL (50-175) Total Iron Binding Capacity 70 ug/dL (250-450) L Percent Iron Saturation 106 % (15-50) H Unsaturated Iron Binding -4 ug/dL (112-346) L Ferritin 832 NG/ML (8-388) H Total Bilirubin 0.4 MG/DL (0.2-1.0) Gamma Glutamyl Transpeptidase 4 U/L (5-85) L Aspartate Amino Transf (AST/SGOT) 14 U/L (15-37) L Alanine Aminotransferase (ALT/SGPT) 12 U/L (12-78) Alkaline Phosphatase 72 U/L (46-116) Lactate Dehydrogenase 152 U/L (81-234) Total Creatine Kinase 130 U/L (26-308) C-Reactive Protein, Quantitative 4.6 mg/dL (0.00-0.90) H Pro-B-Type Natriuretic Peptide 6240 pg/mL (0-125) H Total Protein 5.4 G/DL (6.4-8.2) L Albumin 2.1 G/DL (3.4-5.0) L Globulin 3.3 g/dL Albumin/Globulin Ratio 0.6 (1.0-2.7) L Carcinoembryonic Antigen Pending Vitamin B12 Level 609 PG/ML (193-986) Folate 5.4 NG/ML (8.6-58.9) L Microbiology Date/Time Source Procedure Growth Status 03/23/18 12:35 Blood Blood Culture - Preliminary NO GROWTH AFTER 24 HOURS Resulted 03/23/18 12:30 Blood Blood Culture - Preliminary NO GROWTH AFTER 24 HOURS Resulted 03/23/18 00:53 Nasal Nares MRSA Culture - Final NO METHICILLIN RESISTANT STAPH AUREUS... Complete 03/23/18 14:00 Urine,Clean Catch Urine Culture - Preliminary Gram Negative Bacillus 1 Gram Positive Cocci Resulted 03/23/18 00:53 Rectum - Final NO CARBAPENEM-RESISTANT ENTEROBACTERI... Complete 03/23/18 00:53 Rectum VRE Culture - Final Enterococcus Faecalis - Vre Enterococcus Faecium - Vre Complete Intake and Output 03/24/18 03/25/18 19:00 07:00 Intake Total 1024.60 ml 1100 ml Output Total 320 ml 300 ml Balance 704.60 ml 800 ml IV Total 1024.60 ml 1100 ml Output Urine Total 320 ml 300 ml # Bowel Movements 1 Objective PHYSICAL EXAMINATION: GENERAL: The patient is a well-developed, well-nourished, agitated white male. HEENT: Eyes, pupils equal and responsive to light and accommodation. Extraocular movements are intact. NECK: Supple without lymphadenopathy. CHEST: Lungs are clear to auscultation bilaterally without wheezes or rales. CARDIOVASCULAR: Regular rate. S1, S2 are normal without murmurs, rubs, or gallops. ABDOMEN: Soft, nontender, and nondistended. Positive bowel sounds. No evidence of hepatosplenomegaly. Currently, no rebound or guarding noted. EXTREMITIES: Negative for clubbing, cyanosis, or edema. RECTAL: Refused. GENITAL: Refused. NEUROLOGIC: Cranial nerves II through XII are grossly intact without focal deficits. Motor strength is 5/5 bilaterally intact. Deep tendon reflexes are 2+, plantar. Assessment/Plan Problem List: (1) Diabetes mellitus type II, uncontrolled Assessment & Plan: Better control today-See endocrinology note. (2) HTN (hypertension) Assessment & Plan: Currently hypotensive (3) Hypercholesteremia (4) CKD (chronic kidney disease), stage IV (5) DKA (diabetic ketoacidoses) Assessment & Plan: D/C insulin drip-see Endocrinology note. (6) Bladder outlet obstruction Assessment & Plan: S/P suprapubic catrh (7) Encephalopathy acute (8) Retinopathy, diabetic, left eye (9) Sepsis Assessment & Plan: See ID note. Continue ertapenem (10) Hypoparathyroidism (11) Blind left eye (12) Suprapubic catheter (13) BPH (benign prostatic hypertrophy) Status: progressing Jose Glasgow MD Mar 25, 2018 19:01
[2018-03-25] MEDS: Dyna-Hex 2% Top Sol 2oz TOPIC SCH (20:52)
--- NOTE | 2018-03-25 23:20 | General Progress Note ---
Assessment/Plan Assessment/Plan Encephalopathy due to [facility] MDD Anxiety d/o -Cymbalta -Ativan -provided ro/st Subjective Neurologic/Psychiatric: Reports: anxiety, depressed Allergies: Coded Allergies: CEFEPIME (Verified Allergy, Intermediate, Rash, 03/01/18) Tolerates Carbapenem Subjective withdrawn depressed Objective Last 24 Hour Vital Signs Date Time Temp Pulse Resp B/P (MAP) Pulse Ox O2 Delivery O2 Flow Rate FiO2 03/25/18 21:00 Room Air 03/25/18 20:52 75 119/79 03/25/18 20:00 97.7 75 18 119/79 (92) 96 97.7 03/25/18 16:00 97.8 76 18 121/60 (80) 98 97.8 03/25/18 12:00 98.9 78 19 117/51 (73) 97 98.9 03/25/18 10:03 72 125/59 03/25/18 08:00 98.2 72 17 125/59 (81) 100 98.2 03/25/18 08:00 Room Air 03/25/18 07:00 72 17 125/39 (67) 100 03/25/18 06:00 70 17 96/42 (60) 100 03/25/18 05:00 82 17 97/37 (57) 100 03/25/18 04:00 98.0 71 17 136/59 (84) 100 98.0 03/25/18 04:00 Room Air 03/25/18 03:00 70 16 111/44 (66) 100 03/25/18 02:00 70 16 93/47 (62) 100 03/25/18 01:00 83 17 104/82 (89) 100 03/25/18 00:00 97.9 74 18 123/63 (83) 100 97.9 03/25/18 00:00 Room Air Intake and Output 03/24/18 03/25/18 19:00 07:00 Intake Total 1024.60 ml 1100 ml Output Total 320 ml 300 ml Balance 704.60 ml 800 ml IV Total 1024.60 ml 1100 ml Output Urine Total 320 ml 300 ml # Bowel Movements 1 Laboratory Tests 03/25/18 04:30: White Blood Count 18.2H, Red Blood Count 2.62L, Hemoglobin 7.8L, Hematocrit 24.3L, Mean Corpuscular Volume 93, Mean Corpuscular Hemoglobin 29.7, Mean Corpuscular Hemoglobin Concent 32.1, Red Cell Distribution Width 15.3H, Platelet Count 415, Mean Platelet Volume 5.8L, Neutrophils (%) (Auto) , Lymphocytes (%) (Auto) , Monocytes (%) (Auto) , Eosinophils (%) (Auto) , Basophils (%) (Auto) , Differential Total Cells Counted 100, Neutrophils % ( Manual) 80H, Lymphocytes % (Manual) 8L, Monocytes % (Manual) 3, Eosinophils % ( Manual) 8H, Basophils % (Manual) 0, Band Neutrophils 1, Other Cell Type , Platelet Estimate IncreasedH, Platelet Morphology Normal, Hypochromasia 1+, Anisocytosis 1+, Erythrocyte Sedimentation Rate 45H, Reticulocyte Count 2.4H, Prothrombin Time 10.3, Prothromb Time International Ratio 1.0, Activated Partial Thromboplast Time 33, Sodium Level 151H, Potassium Level 3.6, Chloride Level 122H, Carbon Dioxide Level 13L, Anion Gap 16H, Blood Urea Nitrogen 82H, Creatinine 5.0H, Estimat Glomerular Filtration Rate 11.7, Glucose Level 96, Uric Acid 7.8H, Calcium Level 8.3L, Phosphorus Level 3.5, Magnesium Level 1.7L, Iron Level 74, Total Iron Binding Capacity 70L, Percent Iron Saturation 106H, Unsaturated Iron Binding -4L, Ferritin 832H, Total Bilirubin 0.4, Gamma Glutamyl Transpeptidase 4L, Aspartate Amino Transf (AST/SGOT) 14L, Alanine Aminotransferase (ALT/SGPT) 12, Alkaline Phosphatase 72, Lactate Dehydrogenase 152, Total Creatine Kinase 130, C-Reactive Protein, Quantitative 4.6H, Pro-B- Type Natriuretic Peptide 6240H, Total Protein 5.4L, Albumin 2.1L, Globulin 3.3, Albumin/Globulin Ratio 0.6L, Carcinoembryonic Antigen [Pending], Vitamin B12 Level 609, Folate 5.4L Height (Feet): 5 Height (Inches): 8.00 Weight (Pounds): 150 General Appearance: no apparent distress, alert Neurologic: oriented x 3, depressed affect Fatmata Lu MD Mar 25, 2018 23:20
[2018-03-26] VITALS: BP 109/58
[2018-03-26] MEDS: Sodium Citrate 30ml ORAL SCH ×5 (00:13→17:35)
[2018-03-26 04:00] VITALS: BP 103/55
[2018-03-26] MEDS: Sodium Bicarbonate 50 ML in 1/2 NS 1000ml 1,000 ML IV SCH (05:34)
[2018-03-26] MEDS: NovoLOG Insulin Flexpen SUBQ SCH ×8 (06:30→21:43)
[2018-03-26 07:24] LABS: ALANINE AMINOTRANSFERASE 14 U/L (12-78); ALBUMIN 1.9 G/DL (3.4-5.0); ALBUMIN/GLOBULIN RATIO 0.6 (1.0-2.7); ALKALINE PHOSPHATASE 71 U/L (46-116); ANION GAP 16 mmol/L (5-15); ASPARTATE AMINO TRANSFERASE 15 U/L (15-37); BASOPHILS % (AUTO) 0.3 % (0.0-2.0); BILIRUBIN,TOTAL 0.4 MG/DL (0.2-1.0); BLOOD UREA NITROGEN 73 mg/dL (7-18); CARBON DIOXIDE 15 MMOL/L (21-32); CHLORIDE 122 MMOL/L (98-107); CREATININE 4.5 MG/DL (0.55-1.30); LYMPHOCYTES % (AUTO) 9.6 % (20.0-45.0); MEAN CORPUSCULAR VOLUME 90 FL (80-99); MONOCYTES % (AUTO) 4.1 % (1.0-10.0); PHOSPHORUS 2.8 MG/DL (2.5-4.9); PLATELET COUNT 329 K/UL (150-450); POTASSIUM 3.2 MMOL/L (3.5-5.1); RED BLOOD COUNT 3.13 M/UL (4.70-6.10); RED CELL DISTRIBUTION WIDTH 16.6 % (11.6-14.8); SODIUM 153 MMOL/L (136-145); WHITE BLOOD COUNT 12.5 K/UL (4.8-10.8)
[2018-03-26 08:00] VITALS: BP 139/70
[2018-03-26] MEDS: Metoprolol Succinate XL 25mg tab ORAL SCH ×2 (09:18→21:40)
[2018-03-26] MEDS: DULoxetine 30mg cap ORAL SCH (09:18)
[2018-03-26] MEDS: Ertapenem 0.5 GM in NS 55 ML IVPB SCH (09:19)
[2018-03-26] MEDS: Levemir Flexpen SUBQ SCH ×2 (09:21→21:38)
[2018-03-26] MEDS: Heparin 5000 units/ml inj SUBQ SCH ×2 (09:21→21:37)
[2018-03-26] MEDS ORDERED: Sodium Bicarbonate 50 ML in D5W 1000ml 1,000 ML IV SCH (10:15)
[2018-03-26] MEDS ORDERED: Tubing Blood Filter IV ONE (10:51)
[2018-03-26] MEDS ORDERED: Tubing IV Secondary IV ONE (10:51)
[2018-03-26] MEDS ORDERED: NS 500ML ONE (10:51)
--- NOTE | 2018-03-26 11:42 | Infectious Diseases Prog Note ---
Assessment/Plan Assessment/Plan 63 yo male who presents from a long-term with increased AMS and sepsis Sepsis, improving Leukocytosis , improving Afebrile Probable complicated UTI Has suprapubic cath, - 03/24/18 Urine Cx ( ESBL P mirabilis, MRSA ) Acute on Chronic Encephalopathy - Probably due to UTI +/- Hyperglycemia Rash- - Will need to monitor. May be contact, fungal or other HTN DM Asthma COPD Kidney CA Pancreatic CA Anemia CVA CKD BPH Plan: -Continue Ertapenem # , add Clinda d# -Clotrimazole cream for the rashes -f/u Blood Cx -Monitor CBC and Temps -Supportive care Subjective Allergies: Coded Allergies: CEFEPIME (Verified Allergy, Intermediate, Rash, 03/01/18) Tolerates Carbapenem Objective Vital Signs Last 24 Hour Vital Signs Date Time Temp Pulse Resp B/P (MAP) Pulse Ox O2 Delivery O2 Flow Rate FiO2 03/26/18 09:18 83 139/70 03/26/18 09:00 Room Air 03/26/18 08:00 97.2 83 19 139/70 (93) 97 97.2 03/26/18 04:00 97.9 84 18 103/55 (71) 97 97.9 03/26/18 00:00 97.8 84 18 109/58 (75) 99 97.8 03/25/18 21:00 Room Air 03/25/18 20:52 75 119/79 03/25/18 20:00 97.7 75 18 119/79 (92) 96 97.7 03/25/18 16:00 97.8 76 18 121/60 (80) 98 97.8 03/25/18 12:00 98.9 78 19 117/51 (73) 97 98.9 Height (Feet): 5 Height (Inches): 8.00 Weight (Pounds): 155 Microbiology Date/Time Source Procedure Growth Status 03/23/18 12:35 Blood Blood Culture - Preliminary NO GROWTH AFTER 48 HOURS Resulted 03/23/18 12:30 Blood Blood Culture - Preliminary NO GROWTH AFTER 48 HOURS Resulted 03/23/18 14:00 Urine,Clean Catch Urine Culture - Preliminary Proteus Mirabilis Esbl Staphylococcus Aureus Resulted Laboratory Tests Test 03/26/18 05:30 03/26/18 08:30 White Blood Count 12.5 K/UL (4.8-10.8) H Red Blood Count 3.13 M/UL (4.70-6.10) L Hemoglobin 9.0 G/DL (14.2-18.0) L Hematocrit 28.0 % (42.0-52.0) L Mean Corpuscular Volume 90 FL (80-99) Mean Corpuscular Hemoglobin 28.7 PG (27.0-31.0) Mean Corpuscular Hemoglobin Concent 32.0 G/DL (32.0-36.0) Red Cell Distribution Width 16.6 % (11.6-14.8) H Platelet Count 329 K/UL (150-450) Mean Platelet Volume 6.1 FL (6.5-10.1) L Neutrophils (%) (Auto) 79.0 % (45.0-75.0) H Lymphocytes (%) (Auto) 9.6 % (20.0-45.0) L Monocytes (%) (Auto) 4.1 % (1.0-10.0) Eosinophils (%) (Auto) 7.0 % (0.0-3.0) H Basophils (%) (Auto) 0.3 % (0.0-2.0) Sodium Level 153 MMOL/L (136-145) H Potassium Level 3.2 MMOL/L (3.5-5.1) L Chloride Level 122 MMOL/L (98-107) H Carbon Dioxide Level 15 MMOL/L (21-32) L Anion Gap 16 mmol/L (5-15) H Blood Urea Nitrogen 73 mg/dL (7-18) H Creatinine 4.5 MG/DL (0.55-1.30) H Estimat Glomerular Filtration Rate 13.3 mL/min (>60) Glucose Level 129 MG/DL (74-106) H Calcium Level 8.0 MG/DL (8.5-10.1) L Phosphorus Level 2.8 MG/DL (2.5-4.9) Magnesium Level 1.6 MG/DL (1.8-2.4) L Total Bilirubin 0.4 MG/DL (0.2-1.0) Aspartate Amino Transf (AST/SGOT) 15 U/L (15-37) Alanine Aminotransferase (ALT/SGPT) 14 U/L (12-78) Alkaline Phosphatase 71 U/L (46-116) Total Protein 5.1 G/DL (6.4-8.2) L Albumin 1.9 G/DL (3.4-5.0) L Globulin 3.2 g/dL Albumin/Globulin Ratio 0.6 (1.0-2.7) L Stool Occult Blood Pending Current Medications Medications (Trade) Dose Ordered Sig/Dunia Route PRN Reason Start Time Stop Time Status Last Admin Dose Admin Acetaminophen (Tylenol) 650 mg Q6H PRN ORAL Mild Pain/Temp > 100.5 03/25/18 08:00 04/22/18 07:59 Chlorhexidine Gluconate (Eloisa-Hex 2%) 1 applic DAILY@2000 TOPIC 03/25/18 20:00 04/23/18 19:59 03/25/18 20:52 Clotrimazole (Lotrimin) 1 applic THREE TIMES A DAY TOPIC 03/25/18 09:00 04/22/18 17:59 03/26/18 09:19 Dextrose (Dextrose 50%) 25 ml STAT PRN IV Hypoglycemia 03/25/18 09:00 04/23/18 08:59 Dextrose (Dextrose 50%) 50 ml STAT PRN IV Hypoglycemia 03/25/18 09:00 04/23/18 08:59 Duloxetine HCl (Cymbalta) 30 mg DAILY ORAL 03/25/18 09:00 04/22/18 08:59 03/26/18 09:18 Ertapenem 0.5 gm/ Sodium Chloride 55 ml @ 110 mls/hr Q24H IVPB 03/25/18 10:00 03/29/18 09:59 03/26/18 09:19 Folic Acid (Folate) 2 mg DAILY ORAL 03/25/18 09:00 04/24/18 08:59 03/26/18 09:18 Heparin Sodium (Porcine) (Heparin 5000 units/ml) 5,000 units EVERY 12 HOURS SUBQ 03/25/18 09:00 04/22/18 08:59 03/26/18 09:21 Insulin Aspart (NovoLOG) BEFORE MEALS AND HS SUBQ 03/25/18 11:30 04/23/18 20:59 03/25/18 20:57 Insulin Aspart (NovoLOG) 4 units NOVOTIAC SUBQ 03/25/18 11:50 04/24/18 06:29 03/25/18 12:30 Insulin Detemir (Levemir) 10 units Q12HR SUBQ 03/25/18 09:00 04/23/18 20:59 03/26/18 09:21 Magnesium Sulfate 100 ml @ 100 mls/hr Q1H IVPB 03/26/18 10:30 03/26/18 12:29 03/26/18 10:45 Metoclopramide HCl (Reglan) 10 mg Q6H PRN IVP Nausea & Vomiting 03/25/18 09:00 04/22/18 08:59 Metoprolol Succinate (Toprol XL) 25 mg Q12HR ORAL 03/25/18 09:00 04/22/18 20:59 03/26/18 09:18 Pantoprazole (Protonix) 40 mg DAILY ORAL 03/25/18 09:00 04/23/18 08:59 03/26/18 09:18 Sodium Bicarbonate 50 ml/ Dextrose 1,050 ml @ 100 mls/hr [id number] IV 03/26/18 10:15 04/25/18 10:14 Sodium Citrate (Bicitra) 30 ml EVERY 6 HOURS ORAL 03/25/18 12:00 04/22/18 17:59 03/26/18 05:35 Rich Wick MD Mar 26, 2018 11:42
[2018-03-26 12:00] VITALS: BP 119/67
--- NOTE | 2018-03-26 12:42 | Nephrology Progress Note ---
Assessment/Plan Problem List: (1) Acute on chronic renal failure (2) Anemia in chronic kidney disease (3) Acidosis, metabolic (4) BPH (benign prostatic hypertrophy) (5) Suprapubic catheter (6) Encephalopathy acute (7) Kidney transplant status Assessment 1) Anemia in chronic kidney disease (2) Acute on chronic renal failure (3) Psychiatric disturbance (4) Acidosis, metabolic (5) UTI (urinary tract infection) (6) Encephalopathy Acute renal failure on chronic kidney disease Metabolic acidosis and HyperGlycemia h/o Recurrent hematuria history of recurrent UTI Anemia due to acute blood loss( i.e. hematuria) and CKD Leukocytosis Suprapubic catheter Neurogenic bladder BPH Elevated CPK Status post renal pancreatic transplant h/o Elevated lipase Diabetes mellitus type 2 with hx of DKA Hypertension now low BP COPD/asthma Coronary artery disease with history of NSTEMI major depressive disorder with history of suicidal attempt Plan Plan adjust BP meds- Hydrate- Bicarb via IV fluids PO Bicitra mag and KCL as needed BS check and adjustment antibiotics watch Hgb Gastric support patient DNR monitor renal parameters avoid nephrotoxics no dialysis in the past Subjective ROS Limited/Unobtainable: No Constitutional: Reports: malaise, weakness Objective Objective Last 24 Hour Vital Signs Date Time Temp Pulse Resp B/P (MAP) Pulse Ox O2 Delivery O2 Flow Rate FiO2 03/26/18 12:00 97.8 82 19 119/67 (84) 98 97.8 03/26/18 09:18 83 139/70 03/26/18 09:00 Room Air 03/26/18 08:00 97.2 83 19 139/70 (93) 97 97.2 03/26/18 04:00 97.9 84 18 103/55 (71) 97 97.9 03/26/18 00:00 97.8 84 18 109/58 (75) 99 97.8 03/25/18 21:00 Room Air 03/25/18 20:52 75 119/79 03/25/18 20:00 97.7 75 18 119/79 (92) 96 97.7 03/25/18 16:00 97.8 76 18 121/60 (80) 98 97.8 Intake and Output 03/25/18 03/26/18 19:00 07:00 Intake Total 700 ml 1000 ml Output Total 450 ml 750 ml Balance 250 ml 250 ml IV Total 100 ml 1000 ml Other 600 ml Output Urine Total 450 ml 750 ml # Bowel Movements 1 Laboratory Tests 03/26/18 05:30: White Blood Count 12.5H, Red Blood Count 3.13L, Hemoglobin 9.0L, Hematocrit 28.0L, Mean Corpuscular Volume 90, Mean Corpuscular Hemoglobin 28.7, Mean Corpuscular Hemoglobin Concent 32.0, Red Cell Distribution Width 16.6H, Platelet Count 329, Mean Platelet Volume 6.1L, Neutrophils (%) (Auto) 79.0H, Lymphocytes (%) (Auto) 9.6L, Monocytes (%) (Auto) 4.1, Eosinophils (%) (Auto) 7.0H, Basophils (%) (Auto) 0.3, Sodium Level 153H, Potassium Level 3.2L, Chloride Level 122H, Carbon Dioxide Level 15L, Anion Gap 16H, Blood Urea Nitrogen 73H, Creatinine 4.5H, Estimat Glomerular Filtration Rate 13.3, Glucose Level 129H, Calcium Level 8.0L, Phosphorus Level 2.8, Magnesium Level 1.6L, Total Bilirubin 0.4, Aspartate Amino Transf (AST/SGOT) 15, Alanine Aminotransferase (ALT/SGPT) 14, Alkaline Phosphatase 71, Total Protein 5.1L, Albumin 1.9L, Globulin 3.2, Albumin/Globulin Ratio 0.6L 03/26/18 08:30: Stool Occult Blood Negative Height (Feet): 5 Height (Inches): 8.00 Weight (Pounds): 155 General Appearance: no apparent distress Respiratory/Chest: decreased breath sounds Abdomen: soft Objective no other change Luis Chambers MD Mar 26, 2018 12:42
[2018-03-26] MEDS ORDERED: Albumin Human 5% 250ml IV ONE (12:45)
--- NOTE | 2018-03-26 12:54 | Pulmonology Progress Note ---
Assessment/Plan Problems: (1) Encephalopathy acute (2) Acute on chronic renal failure (3) Sepsis (4) Acute hyperglycemia (5) Hypoparathyroidism (6) Pulmonary HTN (7) Psychiatric disturbance (8) Renal transplant recipient Assessment/Plan K supplement improving BS better WBC lower continue abx check cultures endo is following dvt prophylaxis f/u renal and endo recommendations pt could benefit from hospice evaluation. Subjective ROS Limited/Unobtainable: No Constitutional: Reports: no symptoms HEENT: Repors: no symptoms Respiratory: Reports: no symptoms Allergies: Coded Allergies: CEFEPIME (Verified Allergy, Intermediate, Rash, 03/01/18) Tolerates Carbapenem Objective Last 24 Hour Vital Signs Date Time Temp Pulse Resp B/P (MAP) Pulse Ox O2 Delivery O2 Flow Rate FiO2 03/26/18 12:00 97.8 82 19 119/67 (84) 98 97.8 03/26/18 09:18 83 139/70 03/26/18 09:00 Room Air 03/26/18 08:00 97.2 83 19 139/70 (93) 97 97.2 03/26/18 04:00 97.9 84 18 103/55 (71) 97 97.9 03/26/18 00:00 97.8 84 18 109/58 (75) 99 97.8 03/25/18 21:00 Room Air 03/25/18 20:52 75 119/79 03/25/18 20:00 97.7 75 18 119/79 (92) 96 97.7 03/25/18 16:00 97.8 76 18 121/60 (80) 98 97.8 Intake and Output 03/25/18 03/26/18 19:00 07:00 Intake Total 700 ml 1000 ml Output Total 450 ml 750 ml Balance 250 ml 250 ml IV Total 100 ml 1000 ml Other 600 ml Output Urine Total 450 ml 750 ml # Bowel Movements 1 General Appearance: WD/WN, no acute distress HEENT: normocephalic, atraumatic Respiratory/Chest: chest wall non-tender, lungs clear Cardiovascular: normal peripheral pulses, normal rate Abdomen: normal bowel sounds, soft, non tender Genitourinary: normal external genitalia Skin: no rash Neurologic/Psychiatric: proof plate maker II-XII grossly normal Lymphatic: no neck adenopathy Microbiology Date/Time Source Procedure Growth Status 03/23/18 14:00 Urine,Clean Catch Urine Culture - Preliminary Proteus Mirabilis Esbl Staphylococcus Aureus Resulted Laboratory Tests 03/26/18 05:30: White Blood Count 12.5H, Red Blood Count 3.13L, Hemoglobin 9.0L, Hematocrit 28.0L, Mean Corpuscular Volume 90, Mean Corpuscular Hemoglobin 28.7, Mean Corpuscular Hemoglobin Concent 32.0, Red Cell Distribution Width 16.6H, Platelet Count 329, Mean Platelet Volume 6.1L, Neutrophils (%) (Auto) 79.0H, Lymphocytes (%) (Auto) 9.6L, Monocytes (%) (Auto) 4.1, Eosinophils (%) (Auto) 7.0H, Basophils (%) (Auto) 0.3, Sodium Level 153H, Potassium Level 3.2L, Chloride Level 122H, Carbon Dioxide Level 15L, Anion Gap 16H, Blood Urea Nitrogen 73H, Creatinine 4.5H, Estimat Glomerular Filtration Rate 13.3, Glucose Level 129H, Calcium Level 8.0L, Phosphorus Level 2.8, Magnesium Level 1.6L, Total Bilirubin 0.4, Aspartate Amino Transf (AST/SGOT) 15, Alanine Aminotransferase (ALT/SGPT) 14, Alkaline Phosphatase 71, Total Protein 5.1L, Albumin 1.9L, Globulin 3.2, Albumin/Globulin Ratio 0.6L 03/26/18 08:30: Stool Occult Blood Negative Current Medications Medications (Trade) Dose Ordered Sig/Dunia Route PRN Reason Start Time Stop Time Status Last Admin Dose Admin Acetaminophen (Tylenol) 650 mg Q6H PRN ORAL Mild Pain/Temp > 100.5 03/25/18 08:00 04/22/18 07:59 Albumin Human 500 ml @ 0 mls/hr ONCE ONCE IV 03/26/18 14:00 03/26/18 14:01 Chlorhexidine Gluconate (Eloisa-Hex 2%) 1 applic DAILY@1999 TOPIC 03/25/18 20:00 04/23/18 19:59 03/25/18 20:52 Clindamycin HCl (Cleocin) 150 mg EVERY 6 HOURS ORAL 03/26/18 12:00 04/02/18 11:59 Clotrimazole (Lotrimin) 1 applic THREE TIMES A DAY TOPIC 03/25/18 09:00 04/22/18 17:59 03/26/18 09:19 Dextrose (Dextrose 50%) 25 ml STAT PRN IV Hypoglycemia 03/25/18 09:00 04/23/18 08:59 Dextrose (Dextrose 50%) 50 ml STAT PRN IV Hypoglycemia 03/25/18 09:00 04/23/18 08:59 Duloxetine HCl (Cymbalta) 30 mg DAILY ORAL 03/25/18 09:00 04/22/18 08:59 03/26/18 09:18 Ertapenem 0.5 gm/ Sodium Chloride 55 ml @ 110 mls/hr Q24H IVPB 03/25/18 10:00 03/29/18 09:59 03/26/18 09:19 Folic Acid (Folate) 2 mg DAILY ORAL 03/25/18 09:00 04/24/18 08:59 03/26/18 09:18 Heparin Sodium (Porcine) (Heparin 5000 units/ml) 5,000 units EVERY 12 HOURS SUBQ 03/25/18 09:00 04/22/18 08:59 03/26/18 09:21 Insulin Aspart (NovoLOG) BEFORE MEALS AND HS SUBQ 03/25/18 11:30 04/23/18 20:59 03/26/18 11:52 Insulin Aspart (NovoLOG) 4 units NOVOTIAC SUBQ 03/25/18 11:50 04/24/18 06:29 03/26/18 11:52 Insulin Detemir (Levemir) 10 units Q12HR SUBQ 03/25/18 09:00 04/23/18 20:59 03/26/18 09:21 Metoclopramide HCl (Reglan) 10 mg Q6H PRN IVP Nausea & Vomiting 03/25/18 09:00 04/22/18 08:59 Metoprolol Succinate (Toprol XL) 25 mg Q12HR ORAL 03/25/18 09:00 04/22/18 20:59 03/26/18 09:18 Pantoprazole (Protonix) 40 mg DAILY ORAL 03/25/18 09:00 04/23/18 08:59 03/26/18 09:18 Potassium Chloride (K-Dur) 40 meq DAILY ORAL 03/27/18 09:00 04/26/18 08:59 Potassium Chloride (K-Dur) 40 meq ONCE ORAL 03/26/18 12:45 03/26/18 13:45 Sodium Bicarbonate 50 ml/ Dextrose 1,050 ml @ 100 mls/hr [id number] IV 03/26/18 10:15 04/25/18 10:14 Sodium Citrate (Bicitra) 30 ml EVERY 6 HOURS ORAL 03/25/18 12:00 04/22/18 17:59 03/26/18 12:34 Esdras Delgado MD Mar 26, 2018 12:54
[2018-03-26] MEDS: Sodium Bicarbonate 50 ML in D5W 1000ml 1,000 ML IV SCH (13:44)
[2018-03-26] MEDS: Clindamycin 150mg cap ORAL SCH ×2 (13:46→17:34)
[2018-03-26 16:00] VITALS: BP 105/56
--- NOTE | 2018-03-26 17:06 | Internal Med Progress Note ---
Subjective Date of Service: Mar 26, 2018 Physician Name GlasgowJose Attending Physician Christopher Rosado MD Current Medications Medications (Trade) Dose Ordered Sig/Dunia Route PRN Reason Start Time Stop Time Status Last Admin Dose Admin Acetaminophen (Tylenol) 650 mg Q6H PRN ORAL Mild Pain/Temp > 100.5 03/25/18 08:00 04/22/18 07:59 Chlorhexidine Gluconate (Eloisa-Hex 2%) 1 applic DAILY@1999 TOPIC 03/25/18 20:00 04/23/18 19:59 03/25/18 20:52 Clindamycin HCl (Cleocin) 150 mg EVERY 6 HOURS ORAL 03/26/18 12:00 04/02/18 11:59 03/26/18 13:46 Clotrimazole (Lotrimin) 1 applic THREE TIMES A DAY TOPIC 03/25/18 09:00 04/22/18 17:59 03/26/18 14:08 Dextrose (Dextrose 50%) 25 ml STAT PRN IV Hypoglycemia 03/25/18 09:00 04/23/18 08:59 Dextrose (Dextrose 50%) 50 ml STAT PRN IV Hypoglycemia 03/25/18 09:00 04/23/18 08:59 Duloxetine HCl (Cymbalta) 30 mg DAILY ORAL 03/25/18 09:00 04/22/18 08:59 03/26/18 09:18 Ertapenem 0.5 gm/ Sodium Chloride 55 ml @ 110 mls/hr Q24H IVPB 03/25/18 10:00 03/29/18 09:59 03/26/18 09:19 Folic Acid (Folate) 2 mg DAILY ORAL 03/25/18 09:00 04/24/18 08:59 03/26/18 09:18 Heparin Sodium (Porcine) (Heparin 5000 units/ml) 5,000 units EVERY 12 HOURS SUBQ 03/25/18 09:00 04/22/18 08:59 03/26/18 09:21 Insulin Aspart (NovoLOG) BEFORE MEALS AND HS SUBQ 03/25/18 11:30 04/23/18 20:59 03/26/18 16:34 Insulin Aspart (NovoLOG) 4 units NOVOTIAC SUBQ 03/25/18 11:50 04/24/18 06:29 03/26/18 16:34 Insulin Detemir (Levemir) 10 units Q12HR SUBQ 03/25/18 09:00 04/23/18 20:59 03/26/18 09:21 Metoclopramide HCl (Reglan) 10 mg Q6H PRN IVP Nausea & Vomiting 03/25/18 09:00 04/22/18 08:59 Metoprolol Succinate (Toprol XL) 25 mg Q12HR ORAL 03/25/18 09:00 04/22/18 20:59 03/26/18 09:18 Pantoprazole (Protonix) 40 mg DAILY ORAL 03/25/18 09:00 04/23/18 08:59 03/26/18 09:18 Potassium Chloride (K-Dur) 40 meq DAILY ORAL 03/27/18 09:00 04/26/18 08:59 Sodium Bicarbonate 50 ml/ Dextrose 1,050 ml @ 100 mls/hr [id number] IV 03/26/18 14:00 04/25/18 13:59 03/26/18 13:44 Sodium Citrate (Bicitra) 30 ml EVERY 6 HOURS ORAL 03/25/18 12:00 04/22/18 17:59 03/26/18 12:34 Allergies: Coded Allergies: CEFEPIME (Verified Allergy, Intermediate, Rash, 03/01/18) Tolerates Carbapenem ROS Limited/Unobtainable: No Constitutional: Reports: no symptoms HEENT: Reports: no symptoms Cardiovascular: Reports: no symptoms Respiratory: Reports: no symptoms Gastrointestinal/Abdominal: Reports: no symptoms Genitourinary: Reports: no symptoms Neurologic/Psychiatric: Reports: no symptoms Subjective 63 YO M admitted with altered mental status. Now diabetic ketoacidosis. Cover for Int Med-Dr Rosado. Labile fingerstick glucose values 161-563 Objective Last Vital Signs Date Time Temp Pulse Resp B/P (MAP) Pulse Ox O2 Delivery O2 Flow Rate FiO2 03/26/18 16:00 97.7 92 20 105/56 (72) 97 97.7 03/26/18 09:00 Room Air Laboratory Tests Test 03/26/18 05:30 03/26/18 08:30 03/26/18 16:30 White Blood Count 12.5 K/UL (4.8-10.8) H Red Blood Count 3.13 M/UL (4.70-6.10) L Hemoglobin 9.0 G/DL (14.2-18.0) L Hematocrit 28.0 % (42.0-52.0) L Mean Corpuscular Volume 90 FL (80-99) Mean Corpuscular Hemoglobin 28.7 PG (27.0-31.0) Mean Corpuscular Hemoglobin Concent 32.0 G/DL (32.0-36.0) Red Cell Distribution Width 16.6 % (11.6-14.8) H Platelet Count 329 K/UL (150-450) Mean Platelet Volume 6.1 FL (6.5-10.1) L Neutrophils (%) (Auto) 79.0 % (45.0-75.0) H Lymphocytes (%) (Auto) 9.6 % (20.0-45.0) L Monocytes (%) (Auto) 4.1 % (1.0-10.0) Eosinophils (%) (Auto) 7.0 % (0.0-3.0) H Basophils (%) (Auto) 0.3 % (0.0-2.0) Sodium Level 153 MMOL/L (136-145) H Potassium Level 3.2 MMOL/L (3.5-5.1) L Chloride Level 122 MMOL/L (98-107) H Carbon Dioxide Level 15 MMOL/L (21-32) L Anion Gap 16 mmol/L (5-15) H Blood Urea Nitrogen 73 mg/dL (7-18) H Creatinine 4.5 MG/DL (0.55-1.30) H Estimat Glomerular Filtration Rate 13.3 mL/min (>60) Glucose Level 129 MG/DL (74-106) H Pending Calcium Level 8.0 MG/DL (8.5-10.1) L Phosphorus Level 2.8 MG/DL (2.5-4.9) Magnesium Level 1.6 MG/DL (1.8-2.4) L Total Bilirubin 0.4 MG/DL (0.2-1.0) Aspartate Amino Transf (AST/SGOT) 15 U/L (15-37) Alanine Aminotransferase (ALT/SGPT) 14 U/L (12-78) Alkaline Phosphatase 71 U/L (46-116) Total Protein 5.1 G/DL (6.4-8.2) L Albumin 1.9 G/DL (3.4-5.0) L Globulin 3.2 g/dL Albumin/Globulin Ratio 0.6 (1.0-2.7) L Stool Occult Blood Negative (NEGATIVE) Intake and Output 03/25/18 03/26/18 19:00 07:00 Intake Total 700 ml 1000 ml Output Total 450 ml 750 ml Balance 250 ml 250 ml IV Total 100 ml 1000 ml Other 600 ml Output Urine Total 450 ml 750 ml # Bowel Movements 1 Objective PHYSICAL EXAMINATION: GENERAL: The patient is a well-developed, well-nourished, agitated white male. HEENT: Eyes, pupils equal and responsive to light and accommodation. Extraocular movements are intact. NECK: Supple without lymphadenopathy. CHEST: Lungs are clear to auscultation bilaterally without wheezes or rales. CARDIOVASCULAR: Regular rate. S1, S2 are normal without murmurs, rubs, or gallops. ABDOMEN: Soft, nontender, and nondistended. Positive bowel sounds. No evidence of hepatosplenomegaly. Currently, no rebound or guarding noted. EXTREMITIES: Negative for clubbing, cyanosis, or edema. RECTAL: Refused. GENITAL: Refused. NEUROLOGIC: Cranial nerves II through XII are grossly intact without focal deficits. Motor strength is 5/5 bilaterally intact. Deep tendon reflexes are 2+, plantar. Assessment/Plan Problem List: (1) Diabetes mellitus type II, uncontrolled Assessment & Plan: Labile FSBG values. -See endocrinology note. (2) HTN (hypertension) Assessment & Plan: Currently hypotensive (3) Hypercholesteremia (4) CKD (chronic kidney disease), stage IV (5) DKA (diabetic ketoacidoses) Assessment & Plan: D/C insulin drip-see Endocrinology note. (6) Bladder outlet obstruction Assessment & Plan: S/P suprapubic catrh (7) Encephalopathy acute (8) Retinopathy, diabetic, left eye (9) Sepsis Assessment & Plan: See ID note. Continue ertapenem (10) Hypoparathyroidism (11) Blind left eye (12) Suprapubic catheter (13) BPH (benign prostatic hypertrophy) Status: not improved Jose Glasgow MD Mar 26, 2018 17:06
[2018-03-26 20:00] VITALS: BP 128/59
[2018-03-26] MEDS: Dyna-Hex 2% Top Sol 2oz TOPIC SCH (21:30)
[2018-03-27] VITALS: BP 117/57
[2018-03-27] MEDS: Sodium Citrate 30ml ORAL SCH ×5 (00:58→23:53)
[2018-03-27] MEDS: Sodium Bicarbonate 50 ML in D5W 1000ml 1,000 ML IV SCH ×3 (00:58→21:30)
[2018-03-27] MEDS: Clindamycin 150mg cap ORAL SCH ×5 (00:58→23:53)
[2018-03-27 04:00] VITALS: BP 131/59
[2018-03-27] MEDS: NovoLOG Insulin Flexpen SUBQ SCH ×7 (06:03→20:59)
[2018-03-27 06:08] LABS: BASOPHILS % (AUTO) 0.3 % (0.0-2.0); EOSINOPHILS % (AUTO) 6.1 % (0.0-3.0); HEMATOCRIT 25.2 % (42.0-52.0); HEMOGLOBIN 8.3 G/DL (14.2-18.0); LYMPHOCYTES % (AUTO) 11.9 % (20.0-45.0); MEAN CORPUSCULAR VOLUME 89 FL (80-99); MONOCYTES % (AUTO) 4.6 % (1.0-10.0); NEUTROPHILS % (AUTO) 77.1 % (45.0-75.0); PLATELET COUNT 283 K/UL (150-450); RED BLOOD COUNT 2.85 M/UL (4.70-6.10); RED CELL DISTRIBUTION WIDTH 16.6 % (11.6-14.8); WHITE BLOOD COUNT 11.8 K/UL (4.8-10.8)
[2018-03-27 06:31] LABS: ALANINE AMINOTRANSFERASE 11 U/L (12-78); ALBUMIN 2.1 G/DL (3.4-5.0); ALBUMIN/GLOBULIN RATIO 0.7 (1.0-2.7); ALKALINE PHOSPHATASE 64 U/L (46-116); ANION GAP 12 mmol/L (5-15); ASPARTATE AMINO TRANSFERASE 9 U/L (15-37); BILIRUBIN,TOTAL 0.4 MG/DL (0.2-1.0); BLOOD UREA NITROGEN 70 mg/dL (7-18); CALCIUM 8.3 MG/DL (8.5-10.1); CARBON DIOXIDE 20 MMOL/L (21-32); CHLORIDE 118 MMOL/L (98-107); PHOSPHORUS 2.4 MG/DL (2.5-4.9); POTASSIUM 2.9 MMOL/L (3.5-5.1); SODIUM 150 MMOL/L (136-145)
[2018-03-27 08:00] VITALS: BP 138/75
[2018-03-27] MEDS: Metoprolol Succinate XL 25mg tab ORAL SCH ×2 (08:46→20:56)
[2018-03-27] MEDS: DULoxetine 30mg cap ORAL SCH (08:47)
[2018-03-27] MEDS: Levemir Flexpen SUBQ SCH ×2 (08:53→21:00)
[2018-03-27] MEDS: Heparin 5000 units/ml inj SUBQ SCH ×2 (08:54→20:58)
[2018-03-27] MEDS ORDERED: Potassium Phosphate 20 MM in NS 275 ML IV SCH (10:30)
[2018-03-27] MEDS: Ertapenem 0.5 GM in NS 55 ML IVPB SCH (11:09)
[2018-03-27 12:00] VITALS: BP 116/56
--- NOTE | 2018-03-27 13:53 | Pulmonology Progress Note ---
Assessment/Plan Problems: (1) Encephalopathy acute (2) Acute on chronic renal failure (3) Sepsis (4) Acute hyperglycemia (5) Hypoparathyroidism (6) Pulmonary HTN (7) Psychiatric disturbance (8) Renal transplant recipient Assessment/Plan feeling better K supplement improving BS better WBC lower continue abx check cultures endo is following dvt prophylaxis f/u renal and endo recommendations pt could benefit from hospice evaluation. Subjective ROS Limited/Unobtainable: No Constitutional: Reports: no symptoms HEENT: Repors: no symptoms Respiratory: Reports: no symptoms Allergies: Coded Allergies: CEFEPIME (Verified Allergy, Intermediate, Rash, 03/01/18) Tolerates Carbapenem Objective Last 24 Hour Vital Signs Date Time Temp Pulse Resp B/P (MAP) Pulse Ox O2 Delivery O2 Flow Rate FiO2 03/27/18 12:00 97.5 73 18 116/56 (76) 98 97.5 03/27/18 09:00 Room Air 03/27/18 08:46 71 138/75 03/27/18 08:00 97.8 71 18 138/75 (96) 100 97.8 03/27/18 04:00 97.2 66 18 131/59 (83) 100 97.2 03/27/18 00:00 97.5 66 19 117/57 (77) 100 97.5 03/26/18 21:40 79 128/59 03/26/18 21:00 Room Air 03/26/18 20:00 79 20 128/59 (82) 03/26/18 16:00 97.7 92 20 105/56 (72) 97 97.7 Intake and Output 03/26/18 03/27/18 19:00 07:00 Intake Total 695 ml 240 ml Output Total 1000 ml 1300 ml Balance -305 ml -1060 ml Intake Oral 240 ml 240 ml IV Total 455 ml Output Urine Total 1000 ml 1300 ml # Voids 1 # Bowel Movements 1 1 General Appearance: WD/WN HEENT: normocephalic, anicteric Respiratory/Chest: chest wall non-tender, lungs clear Cardiovascular: normal peripheral pulses, normal rate, no JVD Abdomen: soft, non tender Genitourinary: normal external genitalia Skin: no lesions 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/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 normal Laboratory Tests 03/26/18 16:30: Glucose Level 616#*H 03/27/18 05:45: Glucose Level 148#H, White Blood Count 11.8H, Red Blood Count 2.85L, Hemoglobin 8.3L, Hematocrit 25.2L, Mean Corpuscular Volume 89, Mean Corpuscular Hemoglobin 29.0, Mean Corpuscular Hemoglobin Concent 32.7, Red Cell Distribution Width 16.6H, Platelet Count 283, Mean Platelet Volume 6.3L, Neutrophils (%) (Auto) 77.1H, Lymphocytes (%) (Auto) 11.9L, Monocytes (%) (Auto) 4.6, Eosinophils (%) ( Auto) 6.1H, Basophils (%) (Auto) 0.3, Sodium Level 150H, Potassium Level 2.9L, Chloride Level 118H, Carbon Dioxide Level 20L, Anion Gap 12, Blood Urea Nitrogen 70H, Creatinine 4.0H, Estimat Glomerular Filtration Rate 15.2, Calcium Level 8.3L, Phosphorus Level 2.4L, Magnesium Level 2.0, Total Bilirubin 0.4, Aspartate Amino Transf (AST/SGOT) 9L, Alanine Aminotransferase (ALT/SGPT) 11L, Alkaline Phosphatase 64, Total Protein 5.0L, Albumin 2.1L, Globulin 2.9, Albumin /Globulin Ratio 0.7L Current Medications Medications (Trade) Dose Ordered Sig/Dunia Route PRN Reason Start Time Stop Time Status Last Admin Dose Admin Acetaminophen (Tylenol) 650 mg Q6H PRN ORAL Mild Pain/Temp > 100.5 03/25/18 08:00 04/22/18 07:59 Chlorhexidine Gluconate (Eloisa-Hex 2%) 1 applic DAILY@1999 TOPIC 03/25/18 20:00 04/23/18 19:59 03/26/18 21:30 Clindamycin HCl (Cleocin) 150 mg EVERY 6 HOURS ORAL 03/26/18 12:00 04/02/18 11:59 03/27/18 13:15 Clotrimazole (Lotrimin) 1 applic THREE TIMES A DAY TOPIC 03/25/18 09:00 04/22/18 17:59 03/27/18 13:15 Dextrose (Dextrose 50%) 25 ml STAT PRN IV Hypoglycemia 03/25/18 09:00 04/23/18 08:59 Dextrose (Dextrose 50%) 50 ml STAT PRN IV Hypoglycemia 03/25/18 09:00 04/23/18 08:59 Duloxetine HCl (Cymbalta) 30 mg DAILY ORAL 03/25/18 09:00 04/22/18 08:59 03/27/18 08:47 Ertapenem 0.5 gm/ Sodium Chloride 55 ml @ 110 mls/hr Q24H IVPB 03/25/18 10:00 03/29/18 09:59 03/27/18 11:09 Folic Acid (Folate) 2 mg DAILY ORAL 03/25/18 09:00 04/24/18 08:59 03/27/18 08:47 Heparin Sodium (Porcine) (Heparin 5000 units/ml) 5,000 units EVERY 12 HOURS SUBQ 03/25/18 09:00 04/22/18 08:59 03/27/18 08:54 Insulin Aspart (NovoLOG) BEFORE MEALS AND HS SUBQ 03/25/18 11:30 04/23/18 20:59 03/27/18 11:53 Insulin Aspart (NovoLOG) 4 units NOVOTIAC SUBQ 03/25/18 11:50 04/24/18 06:29 03/27/18 11:54 Insulin Detemir (Levemir) 10 units Q12HR SUBQ 03/25/18 09:00 04/23/18 20:59 03/27/18 08:53 Metoclopramide HCl (Reglan) 10 mg Q6H PRN IVP Nausea & Vomiting 03/25/18 09:00 04/22/18 08:59 Metoprolol Succinate (Toprol XL) 25 mg Q12HR ORAL 03/25/18 09:00 04/22/18 20:59 03/27/18 08:46 Pantoprazole (Protonix) 40 mg DAILY ORAL 03/25/18 09:00 04/23/18 08:59 03/27/18 08:45 Potassium Phosphate 20 mm/ Sodium Chloride 281.6667 ml @ 46.944 m... ONCE IV 03/27/18 10:30 03/27/18 16:30 03/27/18 11:49 Potassium Chloride 100 ml @ 100 mls/hr Q1HR IVPB 03/27/18 10:00 03/27/18 13:59 03/27/18 13:17 Sodium Bicarbonate 50 ml/ Dextrose 1,050 ml @ 100 mls/hr [id number] IV 03/26/18 14:00 04/25/18 13:59 03/27/18 11:08 Sodium Citrate (Bicitra) 30 ml EVERY 6 HOURS ORAL 03/25/18 12:00 04/22/18 17:59 03/27/18 13:15 Esdras Delgado MD Mar 27, 2018 13:53
--- NOTE | 2018-03-27 13:57 | Internal Med Progress Note ---
Subjective Date of Service: Mar 27, 2018 Physician Name GlasgowJose Attending Physician Christopher Rosado MD Current Medications Medications (Trade) Dose Ordered Sig/Dunia Route PRN Reason Start Time Stop Time Status Last Admin Dose Admin Acetaminophen (Tylenol) 650 mg Q6H PRN ORAL Mild Pain/Temp > 100.5 03/25/18 08:00 04/22/18 07:59 Chlorhexidine Gluconate (Eloisa-Hex 2%) 1 applic DAILY@1999 TOPIC 03/25/18 20:00 04/23/18 19:59 03/26/18 21:30 Clindamycin HCl (Cleocin) 150 mg EVERY 6 HOURS ORAL 03/26/18 12:00 04/02/18 11:59 03/27/18 13:15 Clotrimazole (Lotrimin) 1 applic THREE TIMES A DAY TOPIC 03/25/18 09:00 04/22/18 17:59 03/27/18 13:15 Dextrose (Dextrose 50%) 25 ml STAT PRN IV Hypoglycemia 03/25/18 09:00 04/23/18 08:59 Dextrose (Dextrose 50%) 50 ml STAT PRN IV Hypoglycemia 03/25/18 09:00 04/23/18 08:59 Duloxetine HCl (Cymbalta) 30 mg DAILY ORAL 03/25/18 09:00 04/22/18 08:59 03/27/18 08:47 Ertapenem 0.5 gm/ Sodium Chloride 55 ml @ 110 mls/hr Q24H IVPB 03/25/18 10:00 03/29/18 09:59 03/27/18 11:09 Folic Acid (Folate) 2 mg DAILY ORAL 03/25/18 09:00 04/24/18 08:59 03/27/18 08:47 Heparin Sodium (Porcine) (Heparin 5000 units/ml) 5,000 units EVERY 12 HOURS SUBQ 03/25/18 09:00 04/22/18 08:59 03/27/18 08:54 Insulin Aspart (NovoLOG) BEFORE MEALS AND HS SUBQ 03/25/18 11:30 04/23/18 20:59 03/27/18 11:53 Insulin Aspart (NovoLOG) 4 units NOVOTIAC SUBQ 03/25/18 11:50 04/24/18 06:29 03/27/18 11:54 Insulin Detemir (Levemir) 10 units Q12HR SUBQ 03/25/18 09:00 04/23/18 20:59 03/27/18 08:53 Metoclopramide HCl (Reglan) 10 mg Q6H PRN IVP Nausea & Vomiting 03/25/18 09:00 04/22/18 08:59 Metoprolol Succinate (Toprol XL) 25 mg Q12HR ORAL 03/25/18 09:00 04/22/18 20:59 03/27/18 08:46 Pantoprazole (Protonix) 40 mg DAILY ORAL 03/25/18 09:00 04/23/18 08:59 03/27/18 08:45 Potassium Phosphate 20 mm/ Sodium Chloride 281.6667 ml @ 46.944 m... ONCE IV 03/27/18 10:30 03/27/18 16:30 03/27/18 11:49 Potassium Chloride 100 ml @ 100 mls/hr Q1HR IVPB 03/27/18 10:00 03/27/18 13:59 03/27/18 13:17 Sodium Bicarbonate 50 ml/ Dextrose 1,050 ml @ 100 mls/hr [id number] IV 03/26/18 14:00 04/25/18 13:59 03/27/18 11:08 Sodium Citrate (Bicitra) 30 ml EVERY 6 HOURS ORAL 03/25/18 12:00 04/22/18 17:59 03/27/18 13:15 Allergies: Coded Allergies: CEFEPIME (Verified Allergy, Intermediate, Rash, 03/01/18) Tolerates Carbapenem ROS Limited/Unobtainable: No Constitutional: Reports: no symptoms HEENT: Reports: no symptoms Cardiovascular: Reports: no symptoms Respiratory: Reports: no symptoms Gastrointestinal/Abdominal: Reports: no symptoms Genitourinary: Reports: no symptoms Neurologic/Psychiatric: Reports: no symptoms Subjective 63 YO M admitted with altered mental status. Now diabetic ketoacidosis. Cover for Int Pierre-Dr Rosado. Labile fingerstick glucose values 121-616 Objective Last Vital Signs Date Time Temp Pulse Resp B/P (MAP) Pulse Ox O2 Delivery O2 Flow Rate FiO2 03/27/18 12:00 97.5 73 18 116/56 (76) 98 97.5 03/27/18 09:00 Room Air Laboratory Tests Test 03/26/18 16:30 03/27/18 05:45 Glucose Level 616 MG/DL (74-106) #*H 148 MG/DL (74-106) #H White Blood Count 11.8 K/UL (4.8-10.8) H Red Blood Count 2.85 M/UL (4.70-6.10) L Hemoglobin 8.3 G/DL (14.2-18.0) L Hematocrit 25.2 % (42.0-52.0) L Mean Corpuscular Volume 89 FL (80-99) Mean Corpuscular Hemoglobin 29.0 PG (27.0-31.0) Mean Corpuscular Hemoglobin Concent 32.7 G/DL (32.0-36.0) Red Cell Distribution Width 16.6 % (11.6-14.8) H Platelet Count 283 K/UL (150-450) Mean Platelet Volume 6.3 FL (6.5-10.1) L Neutrophils (%) (Auto) 77.1 % (45.0-75.0) H Lymphocytes (%) (Auto) 11.9 % (20.0-45.0) L Monocytes (%) (Auto) 4.6 % (1.0-10.0) Eosinophils (%) (Auto) 6.1 % (0.0-3.0) H Basophils (%) (Auto) 0.3 % (0.0-2.0) Sodium Level 150 MMOL/L (136-145) H Potassium Level 2.9 MMOL/L (3.5-5.1) L Chloride Level 118 MMOL/L (98-107) H Carbon Dioxide Level 20 MMOL/L (21-32) L Anion Gap 12 mmol/L (5-15) Blood Urea Nitrogen 70 mg/dL (7-18) H Creatinine 4.0 MG/DL (0.55-1.30) H Estimat Glomerular Filtration Rate 15.2 mL/min (>60) Calcium Level 8.3 MG/DL (8.5-10.1) L Phosphorus Level 2.4 MG/DL (2.5-4.9) L Magnesium Level 2.0 MG/DL (1.8-2.4) Total Bilirubin 0.4 MG/DL (0.2-1.0) Aspartate Amino Transf (AST/SGOT) 9 U/L (15-37) L Alanine Aminotransferase (ALT/SGPT) 11 U/L (12-78) L Alkaline Phosphatase 64 U/L (46-116) Total Protein 5.0 G/DL (6.4-8.2) L Albumin 2.1 G/DL (3.4-5.0) L Globulin 2.9 g/dL Albumin/Globulin Ratio 0.7 (1.0-2.7) L Intake and Output 03/26/18 03/27/18 19:00 07:00 Intake Total 695 ml 240 ml Output Total 1000 ml 1300 ml Balance -305 ml -1060 ml Intake Oral 240 ml 240 ml IV Total 455 ml Output Urine Total 1000 ml 1300 ml # Voids 1 # Bowel Movements 1 1 Objective PHYSICAL EXAMINATION: GENERAL: The patient is a well-developed, well-nourished, agitated white male. HEENT: Eyes, pupils equal and responsive to light and accommodation. Extraocular movements are intact. NECK: Supple without lymphadenopathy. CHEST: Lungs are clear to auscultation bilaterally without wheezes or rales. CARDIOVASCULAR: Regular rate. S1, S2 are normal without murmurs, rubs, or gallops. ABDOMEN: Soft, nontender, and nondistended. Positive bowel sounds. No evidence of hepatosplenomegaly. Currently, no rebound or guarding noted. EXTREMITIES: Negative for clubbing, cyanosis, or edema. RECTAL: Refused. GENITAL: Refused. NEUROLOGIC: Cranial nerves II through XII are grossly intact without focal deficits. Motor strength is 5/5 bilaterally intact. Deep tendon reflexes are 2+, plantar. Assessment/Plan Problem List: (1) Diabetes mellitus type II, uncontrolled Assessment & Plan: Labile FSBG values. -See endocrinology note. (2) HTN (hypertension) Assessment & Plan: Currently hypotensive (3) Hypercholesteremia (4) CKD (chronic kidney disease), stage IV (5) DKA (diabetic ketoacidoses) Assessment & Plan: D/C insulin drip-see Endocrinology note. (6) Bladder outlet obstruction Assessment & Plan: S/P suprapubic catrh (7) Encephalopathy acute (8) Retinopathy, diabetic, left eye (9) Sepsis Assessment & Plan: See ID note. Continue ertapenem (10) Hypoparathyroidism (11) Blind left eye (12) Suprapubic catheter (13) BPH (benign prostatic hypertrophy) Status: progressing Jose Glasgow MD Mar 27, 2018 13:57
--- NOTE | 2018-03-27 15:43 | Nephrology Progress Note ---
Assessment/Plan Problem List: (1) Acute on chronic renal failure (2) Anemia in chronic kidney disease (3) Acidosis, metabolic (4) BPH (benign prostatic hypertrophy) (5) Suprapubic catheter (6) Encephalopathy acute (7) Kidney transplant status Assessment 1) Anemia in chronic kidney disease (2) Acute on chronic renal failure Cr lower (3) Psychiatric disturbance (4) Acidosis, metabolic (5) UTI (urinary tract infection), WBCs lower (6) Encephalopathy Acute renal failure on chronic kidney disease Metabolic acidosis and HyperGlycemia h/o Recurrent hematuria history of recurrent UTI Anemia due to acute blood loss( i.e. hematuria) and CKD Leukocytosis Suprapubic catheter Neurogenic bladder BPH Elevated CPK Status post renal pancreatic transplant h/o Elevated lipase Diabetes mellitus type 2 with hx of DKA Hypertension now low BP COPD/asthma Coronary artery disease with history of NSTEMI major depressive disorder with history of suicidal attempt Plan Plan K supplements adjust BP meds- Hydrate- Bicarb via IV fluids PO Bicitra mag and KCL as needed BS check and adjustment antibiotics watch Hgb Gastric support patient DNR monitor renal parameters avoid nephrotoxics no dialysis in the past Subjective ROS Limited/Unobtainable: No Constitutional: Reports: malaise Objective Objective Last 24 Hour Vital Signs Date Time Temp Pulse Resp B/P (MAP) Pulse Ox O2 Delivery O2 Flow Rate FiO2 03/27/18 12:00 97.5 73 18 116/56 (76) 98 97.5 03/27/18 09:00 Room Air 03/27/18 08:46 71 138/75 03/27/18 08:00 97.8 71 18 138/75 (96) 100 97.8 03/27/18 04:00 97.2 66 18 131/59 (83) 100 97.2 03/27/18 00:00 97.5 66 19 117/57 (77) 100 97.5 03/26/18 21:40 79 128/59 03/26/18 21:00 Room Air 03/26/18 20:00 79 20 128/59 (82) 03/26/18 16:00 97.7 92 20 105/56 (72) 97 97.7 Intake and Output 03/26/18 03/27/18 19:00 07:00 Intake Total 695 ml 240 ml Output Total 1000 ml 1300 ml Balance -305 ml -1060 ml Intake Oral 240 ml 240 ml IV Total 455 ml Output Urine Total 1000 ml 1300 ml # Voids 1 # Bowel Movements 1 1 Laboratory Tests 03/26/18 16:30: Glucose Level 616#*H 03/27/18 05:45: Glucose Level 148#H, White Blood Count 11.8H, Red Blood Count 2.85L, Hemoglobin 8.3L, Hematocrit 25.2L, Mean Corpuscular Volume 89, Mean Corpuscular Hemoglobin 29.0, Mean Corpuscular Hemoglobin Concent 32.7, Red Cell Distribution Width 16.6H, Platelet Count 283, Mean Platelet Volume 6.3L, Neutrophils (%) (Auto) 77.1H, Lymphocytes (%) (Auto) 11.9L, Monocytes (%) (Auto) 4.6, Eosinophils (%) ( Auto) 6.1H, Basophils (%) (Auto) 0.3, Sodium Level 150H, Potassium Level 2.9L, Chloride Level 118H, Carbon Dioxide Level 20L, Anion Gap 12, Blood Urea Nitrogen 70H, Creatinine 4.0H, Estimat Glomerular Filtration Rate 15.2, Calcium Level 8.3L, Phosphorus Level 2.4L, Magnesium Level 2.0, Total Bilirubin 0.4, Aspartate Amino Transf (AST/SGOT) 9L, Alanine Aminotransferase (ALT/SGPT) 11L, Alkaline Phosphatase 64, Total Protein 5.0L, Albumin 2.1L, Globulin 2.9, Albumin /Globulin Ratio 0.7L Height (Feet): 5 Height (Inches): 8.00 Weight (Pounds): 153 General Appearance: agitated Cardiovascular: normal rate Respiratory/Chest: decreased breath sounds Abdomen: distended Genitourinary/Rectal: other - suprs pubic Objective no other change Luis Chambers MD Mar 27, 2018 15:43
[2018-03-27 16:00] VITALS: BP 130/72
[2018-03-27 20:22] VITALS: BP 116/62
[2018-03-27] MEDS: Dyna-Hex 2% Top Sol 2oz TOPIC SCH (20:56)
[2018-03-28 00:10] VITALS: BP 112/68
[2018-03-28] MEDS: Sodium Bicarbonate 50 ML in D5W 1000ml 1,000 ML IV SCH ×3 (01:07→17:32)
[2018-03-28 04:00] VITALS: BP 133/75
[2018-03-28] MEDS: Sodium Citrate 30ml ORAL SCH ×4 (05:36→23:39)
[2018-03-28] MEDS: Clindamycin 150mg cap ORAL SCH ×4 (05:36→23:40)
[2018-03-28] MEDS: NovoLOG Insulin Flexpen SUBQ SCH ×7 (05:37→21:00)
[2018-03-28 06:01] LABS: BASOPHILS % (AUTO) 0.2 % (0.0-2.0); EOSINOPHILS % (AUTO) 4.7 % (0.0-3.0); HEMATOCRIT 30.5 % (42.0-52.0); HEMOGLOBIN 9.9 G/DL (14.2-18.0); LYMPHOCYTES % (AUTO) 11.8 % (20.0-45.0); MEAN CORPUSCULAR VOLUME 90 FL (80-99); MONOCYTES % (AUTO) 4.6 % (1.0-10.0); NEUTROPHILS % (AUTO) 78.7 % (45.0-75.0); PLATELET COUNT 269 K/UL (150-450); RED BLOOD COUNT 3.39 M/UL (4.70-6.10); RED CELL DISTRIBUTION WIDTH 16.5 % (11.6-14.8); WHITE BLOOD COUNT 13.5 K/UL (4.8-10.8)
[2018-03-28 06:20] LABS: ALANINE AMINOTRANSFERASE 12 U/L (12-78); ALBUMIN/GLOBULIN RATIO 0.6 (1.0-2.7); ALKALINE PHOSPHATASE 80 U/L (46-116); ANION GAP 12 mmol/L (5-15); ASPARTATE AMINO TRANSFERASE 10 U/L (15-37); BILIRUBIN,TOTAL 0.4 MG/DL (0.2-1.0); BLOOD UREA NITROGEN 62 mg/dL (7-18); CALCIUM 8.5 MG/DL (8.5-10.1); CARBON DIOXIDE 19 MMOL/L (21-32); CHLORIDE 117 MMOL/L (98-107); CREATININE 3.5 MG/DL (0.55-1.30); PHOSPHORUS 3.1 MG/DL (2.5-4.9); POTASSIUM 4.3 MMOL/L (3.5-5.1); SODIUM 148 MMOL/L (136-145)
--- NOTE | 2018-03-28 07:02 | General Progress Note ---
Assessment/Plan Problem List: (1) HTN (hypertension) ICD Codes: I10 - Essential (primary) hypertension SNOMED: 91096753 (2) CKD (chronic kidney disease), stage IV ICD Codes: N18.4 - Chronic kidney disease, stage 4 (severe) SNOMED: 901417041 (3) DKA (diabetic ketoacidoses) ICD Codes: E13.10 - DKA (diabetic ketoacidoses) SNOMED: 35180379 (4) Psychiatric disturbance ICD Codes: F99 - Psychiatric disturbance SNOMED: 08616866 (5) Acidosis, metabolic ICD Codes: E87.2 - Acidosis, metabolic SNOMED: 69974402 (6) Kidney transplant status ICD Codes: Z94.0 - Kidney transplant status SNOMED: 70305309, 820874862 (7) Renal transplant recipient ICD Codes: Z94.0 - Renal transplant recipient SNOMED: 347777749 Assessment/Plan - continue Levemir 10 units bid - continue NISS ac / hs - Novolog 4 units ac tid - hold if not eating Subjective ROS Limited/Unobtainable: Yes Allergies: Coded Allergies: CEFEPIME (Verified Allergy, Intermediate, Rash, 03/01/18) Tolerates Carbapenem Subjective transferred out of ICU - agitated Objective Last 24 Hour Vital Signs Date Time Temp Pulse Resp B/P (MAP) Pulse Ox O2 Delivery O2 Flow Rate FiO2 03/28/18 04:00 97.9 96 18 133/75 (94) 97 97.9 03/28/18 00:10 98.4 89 20 112/68 (83) 98 98.4 03/27/18 20:56 92 116/62 03/27/18 20:22 98.6 92 18 116/62 (80) 98 98.6 03/27/18 20:17 Room Air 03/27/18 16:00 98.6 76 18 130/72 (91) 100 98.6 03/27/18 12:00 97.5 73 18 116/56 (76) 98 97.5 03/27/18 09:00 Room Air 03/27/18 08:46 71 138/75 03/27/18 08:00 97.8 71 18 138/75 (96) 100 97.8 Intake and Output 03/27/18 03/28/18 19:00 07:00 Intake Total 900 ml 781.6667 ml Balance 900 ml 781.6667 ml IV Total 781.6667 ml Other 900 ml Laboratory Tests 03/28/18 05:20: White Blood Count 13.5H, Red Blood Count 3.39L, Hemoglobin 9.9L, Hematocrit 30.5L, Mean Corpuscular Volume 90, Mean Corpuscular Hemoglobin 29.2, Mean Corpuscular Hemoglobin Concent 32.5, Red Cell Distribution Width 16.5H, Platelet Count 269, Mean Platelet Volume 6.1L, Neutrophils (%) (Auto) 78.7H, Lymphocytes (%) (Auto) 11.8L, Monocytes (%) (Auto) 4.6, Eosinophils (%) (Auto) 4.7H, Basophils (%) (Auto) 0.2, Sodium Level 148H, Potassium Level 4.3, Chloride Level 117H, Carbon Dioxide Level 19L, Anion Gap 12, Blood Urea Nitrogen 62H, Creatinine 3.5H, Estimat Glomerular Filtration Rate 17.7, Glucose Level 266#H, Uric Acid 5.8, Calcium Level 8.5, Phosphorus Level 3.1, Magnesium Level 1.8, Total Bilirubin 0.4, Gamma Glutamyl Transpeptidase 10, Aspartate Amino Transf (AST/SGOT) 10L, Alanine Aminotransferase (ALT/SGPT) 12, Alkaline Phosphatase 80, Troponin I 0.014, Total Protein 5.3L, Albumin 2.0L, Globulin 3.3 , Albumin/Globulin Ratio 0.6L Height (Feet): 5 Height (Inches): 8.00 Weight (Pounds): 150 General Appearance: no apparent distress Neck: normal alignment Cardiovascular: normal rate Respiratory/Chest: lungs clear Abdomen: normal bowel sounds Edema: 1+ Arm (L), 1+ Arm (R), 1+ Leg (L), 1+ Leg (R), 1+ Pedal (L), 1+ Pedal ( R), 1+ Generalized Objective Current Medications Medications (Trade) Dose Ordered Sig/Dunia Route PRN Reason Start Time Stop Time Status Last Admin Dose Admin Acetaminophen (Tylenol) 650 mg Q6H PRN ORAL Mild Pain/Temp > 100.5 03/25/18 08:00 04/22/18 07:59 Chlorhexidine Gluconate (Eloisa-Hex 2%) 1 applic DAILY@1999 TOPIC 03/25/18 20:00 04/23/18 19:59 03/27/18 20:56 Clindamycin HCl (Cleocin) 150 mg EVERY 6 HOURS ORAL 03/26/18 12:00 04/02/18 11:59 03/28/18 05:36 Clotrimazole (Lotrimin) 1 applic THREE TIMES A DAY TOPIC 03/25/18 09:00 04/22/18 17:59 03/27/18 17:29 Dextrose (Dextrose 50%) 25 ml STAT PRN IV Hypoglycemia 03/25/18 09:00 04/23/18 08:59 Dextrose (Dextrose 50%) 50 ml STAT PRN IV Hypoglycemia 03/25/18 09:00 04/23/18 08:59 Duloxetine HCl (Cymbalta) 30 mg DAILY ORAL 03/25/18 09:00 04/22/18 08:59 03/27/18 08:47 Ertapenem 0.5 gm/ Sodium Chloride 55 ml @ 110 mls/hr Q24H IVPB 03/25/18 10:00 03/29/18 09:59 03/27/18 11:09 Folic Acid (Folate) 2 mg DAILY ORAL 03/25/18 09:00 04/24/18 08:59 03/27/18 08:47 Heparin Sodium (Porcine) (Heparin 5000 units/ml) 5,000 units EVERY 12 HOURS SUBQ 03/25/18 09:00 04/22/18 08:59 03/27/18 20:58 Insulin Aspart (NovoLOG) BEFORE MEALS AND HS SUBQ 03/25/18 11:30 04/23/18 20:59 03/28/18 05:37 Insulin Aspart (NovoLOG) 4 units NOVOTIAC SUBQ 03/25/18 11:50 04/24/18 06:29 03/28/18 05:38 Insulin Detemir (Levemir) 10 units Q12HR SUBQ 03/25/18 09:00 04/23/18 20:59 03/27/18 21:00 Metoclopramide HCl (Reglan) 10 mg Q6H PRN IVP Nausea & Vomiting 03/25/18 09:00 04/22/18 08:59 Metoprolol Succinate (Toprol XL) 25 mg Q12HR ORAL 03/25/18 09:00 04/22/18 20:59 03/27/18 20:56 Pantoprazole (Protonix) 40 mg DAILY ORAL 03/25/18 09:00 04/23/18 08:59 03/27/18 08:45 Sodium Bicarbonate 50 ml/ Dextrose 1,050 ml @ 100 mls/hr [id number] IV 03/26/18 14:00 04/25/18 13:59 03/28/18 01:07 Sodium Citrate (Bicitra) 30 ml EVERY 6 HOURS ORAL 03/25/18 12:00 04/22/18 17:59 03/28/18 05:36 Item Value Date Time Bedside Blood Glucose 287 mg/dl H 03/28/18 0612 Bedside Blood Glucose 166 mg/dl H 03/27/18 2115 Bedside Blood Glucose 216 mg/dl H 03/27/18 1647 Bedside Blood Glucose 296 mg/dl H 03/27/18 1154 Bedside Blood Glucose 133 mg/dl H 03/27/18 0853 Bedside Blood Glucose 124 mg/dl H 03/27/18 0630 Modesto Jacques MD Mar 28, 2018 07:02
[2018-03-28 08:00] VITALS: BP 116/69
[2018-03-28] MEDS: DULoxetine 30mg cap ORAL SCH (08:23)
[2018-03-28] MEDS: Metoprolol Succinate XL 25mg tab ORAL SCH ×2 (08:25→21:00)
[2018-03-28] MEDS: Heparin 5000 units/ml inj SUBQ SCH ×2 (08:27→21:26)
[2018-03-28] MEDS: Levemir Flexpen SUBQ SCH ×2 (08:54→21:00)
--- NOTE | 2018-03-28 09:49 | Infectious Diseases Prog Note ---
Assessment/Plan Assessment/Plan 63 yo male who presents from a group home with increased AMS and sepsis Sepsis, improving Leukocytosis Afebrile Probable complicated UTI Has suprapubic cath, - 03/24/18 Urine Cx ( ESBL P mirabilis, MRSA ) Acute on Chronic Encephalopathy - Probably due to UTI +/- Hyperglycemia Rash- - Will need to monitor. May be contact, fungal or other HTN DM Asthma COPD Kidney CA Pancreatic CA Anemia CVA CKD BPH Plan: -Continue Ertapenem # , add Clinda d# -Clotrimazole cream for the rashes -Monitor CBC and Temps -Supportive care We will continue to follow the patient during this hospitalization. Subjective Allergies: Coded Allergies: CEFEPIME (Verified Allergy, Intermediate, Rash, 03/01/18) Tolerates Carbapenem Subjective Patient A/O Afebrile Objective Vital Signs Last 24 Hour Vital Signs Date Time Temp Pulse Resp B/P (MAP) Pulse Ox O2 Delivery O2 Flow Rate FiO2 03/28/18 08:25 87 116/69 03/28/18 08:00 95.7 90 18 116/69 (85) 99 95.7 03/28/18 08:00 Room Air 03/28/18 04:00 97.9 96 18 133/75 (94) 97 97.9 03/28/18 00:10 98.4 89 20 112/68 (83) 98 98.4 03/27/18 20:56 92 116/62 03/27/18 20:22 98.6 92 18 116/62 (80) 98 98.6 03/27/18 20:17 Room Air 03/27/18 16:00 98.6 76 18 130/72 (91) 100 98.6 03/27/18 12:00 97.5 73 18 116/56 (76) 98 97.5 Height (Feet): 5 Height (Inches): 8.00 Weight (Pounds): 150 Objective Gen: NAD, laying bed, A/O HEENT: NCAT, MMM, EOMI LUNGS: CTAB, No W/C CARDS: RRR, S1, S2, No M/R/G ABD: Soft, NT, ND, No R/G, + BS : Suprapubic cath no surrounding erythema or purulence NEURO: A/O x 1, Strength and Sensation Grossly intact SKIN: warm/dry, skin rash on feet arms and skin folds stable Laboratory Tests Test 03/28/18 05:20 White Blood Count 13.5 K/UL (4.8-10.8) H Red Blood Count 3.39 M/UL (4.70-6.10) L Hemoglobin 9.9 G/DL (14.2-18.0) L Hematocrit 30.5 % (42.0-52.0) L Mean Corpuscular Volume 90 FL (80-99) Mean Corpuscular Hemoglobin 29.2 PG (27.0-31.0) Mean Corpuscular Hemoglobin Concent 32.5 G/DL (32.0-36.0) Red Cell Distribution Width 16.5 % (11.6-14.8) H Platelet Count 269 K/UL (150-450) Mean Platelet Volume 6.1 FL (6.5-10.1) L Neutrophils (%) (Auto) 78.7 % (45.0-75.0) H Lymphocytes (%) (Auto) 11.8 % (20.0-45.0) L Monocytes (%) (Auto) 4.6 % (1.0-10.0) Eosinophils (%) (Auto) 4.7 % (0.0-3.0) H Basophils (%) (Auto) 0.2 % (0.0-2.0) Sodium Level 148 MMOL/L (136-145) H Potassium Level 4.3 MMOL/L (3.5-5.1) Chloride Level 117 MMOL/L (98-107) H Carbon Dioxide Level 19 MMOL/L (21-32) L Anion Gap 12 mmol/L (5-15) Blood Urea Nitrogen 62 mg/dL (7-18) H Creatinine 3.5 MG/DL (0.55-1.30) H Estimat Glomerular Filtration Rate 17.7 mL/min (>60) Glucose Level 266 MG/DL (74-106) #H Uric Acid 5.8 MG/DL (2.6-7.2) Calcium Level 8.5 MG/DL (8.5-10.1) Phosphorus Level 3.1 MG/DL (2.5-4.9) Magnesium Level 1.8 MG/DL (1.8-2.4) Total Bilirubin 0.4 MG/DL (0.2-1.0) Gamma Glutamyl Transpeptidase 10 U/L (5-85) Aspartate Amino Transf (AST/SGOT) 10 U/L (15-37) L Alanine Aminotransferase (ALT/SGPT) 12 U/L (12-78) Alkaline Phosphatase 80 U/L (46-116) Troponin I 0.014 ng/mL (0.000-0.056) Total Protein 5.3 G/DL (6.4-8.2) L Albumin 2.0 G/DL (3.4-5.0) L Globulin 3.3 g/dL Albumin/Globulin Ratio 0.6 (1.0-2.7) L Current Medications Medications (Trade) Dose Ordered Sig/Dunia Route PRN Reason Start Time Stop Time Status Last Admin Dose Admin Acetaminophen (Tylenol) 650 mg Q6H PRN ORAL Mild Pain/Temp > 100.5 03/25/18 08:00 04/22/18 07:59 Chlorhexidine Gluconate (Eloisa-Hex 2%) 1 applic DAILY@1999 TOPIC 03/25/18 20:00 04/23/18 19:59 03/27/18 20:56 Clindamycin HCl (Cleocin) 150 mg EVERY 6 HOURS ORAL 03/26/18 12:00 04/02/18 11:59 03/28/18 05:36 Clotrimazole (Lotrimin) 1 applic THREE TIMES A DAY TOPIC 03/25/18 09:00 04/22/18 17:59 03/28/18 08:51 Dextrose (Dextrose 50%) 25 ml STAT PRN IV Hypoglycemia 03/25/18 09:00 04/23/18 08:59 Dextrose (Dextrose 50%) 50 ml STAT PRN IV Hypoglycemia 03/25/18 09:00 04/23/18 08:59 Duloxetine HCl (Cymbalta) 30 mg DAILY ORAL 03/25/18 09:00 04/22/18 08:59 03/28/18 08:23 Ertapenem 0.5 gm/ Sodium Chloride 55 ml @ 110 mls/hr Q24H IVPB 03/25/18 10:00 03/29/18 09:59 03/27/18 11:09 Folic Acid (Folate) 2 mg DAILY ORAL 03/25/18 09:00 04/24/18 08:59 03/28/18 08:23 Heparin Sodium (Porcine) (Heparin 5000 units/ml) 5,000 units EVERY 12 HOURS SUBQ 03/25/18 09:00 04/22/18 08:59 03/28/18 08:27 Insulin Aspart (NovoLOG) BEFORE MEALS AND HS SUBQ 03/25/18 11:30 04/23/18 20:59 03/28/18 05:37 Insulin Aspart (NovoLOG) 4 units NOVOTIAC SUBQ 03/25/18 11:50 04/24/18 06:29 03/28/18 05:38 Insulin Detemir (Levemir) 10 units Q12HR SUBQ 03/25/18 09:00 04/23/18 20:59 03/28/18 08:54 Metoclopramide HCl (Reglan) 10 mg Q6H PRN IVP Nausea & Vomiting 03/25/18 09:00 04/22/18 08:59 Metoprolol Succinate (Toprol XL) 25 mg Q12HR ORAL 03/25/18 09:00 04/22/18 20:59 03/28/18 08:25 Pantoprazole (Protonix) 40 mg DAILY ORAL 03/25/18 09:00 04/23/18 08:59 03/28/18 08:23 Sodium Bicarbonate 50 ml/ Dextrose 1,050 ml @ 100 mls/hr [id number] IV 03/26/18 14:00 04/25/18 13:59 03/28/18 08:20 Sodium Citrate (Bicitra) 30 ml EVERY 6 HOURS ORAL 03/25/18 12:00 04/22/18 17:59 03/28/18 05:36 William Caputo MD Mar 28, 2018 09:49
[2018-03-28] MEDS: Ertapenem 0.5 GM in NS 55 ML IVPB SCH (10:11)
--- NOTE | 2018-03-28 10:33 | Nephrology Progress Note ---
Assessment/Plan Problem List: (1) Acute on chronic renal failure (2) Anemia in chronic kidney disease (3) Acidosis, metabolic (4) BPH (benign prostatic hypertrophy) (5) Suprapubic catheter (6) Encephalopathy acute (7) Kidney transplant status Assessment 1) Anemia in chronic kidney disease (2) Acute on chronic renal failure Cr lower (3) Psychiatric disturbance (4) Acidosis, metabolic (5) UTI (urinary tract infection), WBCs lower (6) Encephalopathy Acute renal failure on chronic kidney disease Metabolic acidosis and HyperGlycemia h/o Recurrent hematuria history of recurrent UTI Anemia due to acute blood loss( i.e. hematuria) and CKD Leukocytosis Suprapubic catheter Neurogenic bladder BPH Elevated CPK Status post renal pancreatic transplant h/o Elevated lipase Diabetes mellitus type 2 with hx of DKA Hypertension now low BP COPD/asthma Coronary artery disease with history of NSTEMI major depressive disorder with history of suicidal attempt Plan Plan improved from renal stand point- K supplements as needed adjust BP meds- as needed Hydrate- Bicarb via IV fluids PO Bicitra mag as needed BS check and adjustment antibiotics watch Hgb Gastric support patient DNR monitor renal parameters avoid nephrotoxics no dialysis in the past ? DC planning Subjective ROS Limited/Unobtainable: No Objective Objective Last 24 Hour Vital Signs Date Time Temp Pulse Resp B/P (MAP) Pulse Ox O2 Delivery O2 Flow Rate FiO2 03/28/18 08:25 87 116/69 03/28/18 08:00 95.7 90 18 116/69 (85) 99 95.7 03/28/18 08:00 Room Air 03/28/18 04:00 97.9 96 18 133/75 (94) 97 97.9 03/28/18 00:10 98.4 89 20 112/68 (83) 98 98.4 03/27/18 20:56 92 116/62 03/27/18 20:22 98.6 92 18 116/62 (80) 98 98.6 03/27/18 20:17 Room Air 03/27/18 16:00 98.6 76 18 130/72 (91) 100 98.6 03/27/18 12:00 97.5 73 18 116/56 (76) 98 97.5 Intake and Output 03/27/18 03/28/18 19:00 07:00 Intake Total 900 ml 881.6667 ml Output Total 850 ml Balance 900 ml 31.6667 ml IV Total 881.6667 ml Other 900 ml Output Urine Total 850 ml # Bowel Movements 2 Laboratory Tests 03/28/18 05:20: White Blood Count 13.5H, Red Blood Count 3.39L, Hemoglobin 9.9L, Hematocrit 30.5L, Mean Corpuscular Volume 90, Mean Corpuscular Hemoglobin 29.2, Mean Corpuscular Hemoglobin Concent 32.5, Red Cell Distribution Width 16.5H, Platelet Count 269, Mean Platelet Volume 6.1L, Neutrophils (%) (Auto) 78.7H, Lymphocytes (%) (Auto) 11.8L, Monocytes (%) (Auto) 4.6, Eosinophils (%) (Auto) 4.7H, Basophils (%) (Auto) 0.2, Sodium Level 148H, Potassium Level 4.3, Chloride Level 117H, Carbon Dioxide Level 19L, Anion Gap 12, Blood Urea Nitrogen 62H, Creatinine 3.5H, Estimat Glomerular Filtration Rate 17.7, Glucose Level 266#H, Uric Acid 5.8, Calcium Level 8.5, Phosphorus Level 3.1, Magnesium Level 1.8, Total Bilirubin 0.4, Gamma Glutamyl Transpeptidase 10, Aspartate Amino Transf (AST/SGOT) 10L, Alanine Aminotransferase (ALT/SGPT) 12, Alkaline Phosphatase 80, Troponin I 0.014, Total Protein 5.3L, Albumin 2.0L, Globulin 3.3 , Albumin/Globulin Ratio 0.6L Height (Feet): 5 Height (Inches): 8.00 Weight (Pounds): 150 General Appearance: no apparent distress Cardiovascular: tachycardia Respiratory/Chest: decreased breath sounds Abdomen: distended Objective no other change Luis Chambers MD Mar 28, 2018 10:33
[2018-03-28 12:00] VITALS: BP 118/72
--- NOTE | 2018-03-28 14:51 | Pulmonology Progress Note ---
Assessment/Plan Problems: (1) Encephalopathy acute (2) Acute on chronic renal failure (3) Sepsis (4) Acute hyperglycemia (5) Hypoparathyroidism (6) Pulmonary HTN (7) Psychiatric disturbance (8) Renal transplant recipient Assessment/Plan feeling better K supplement improving BS better endo is following dvt prophylaxis f/u renal and endo recommendations pt could benefit from hospice evaluation. Subjective ROS Limited/Unobtainable: No Constitutional: Reports: no symptoms HEENT: Repors: no symptoms Respiratory: Reports: no symptoms Allergies: Coded Allergies: CEFEPIME (Verified Allergy, Intermediate, Rash, 03/01/18) Tolerates Carbapenem Objective Last 24 Hour Vital Signs Date Time Temp Pulse Resp B/P (MAP) Pulse Ox O2 Delivery O2 Flow Rate FiO2 03/28/18 12:00 96.4 86 18 118/72 (87) 99 96.4 03/28/18 08:25 87 116/69 03/28/18 08:00 95.7 90 18 116/69 (85) 99 95.7 03/28/18 08:00 Room Air 03/28/18 04:00 97.9 96 18 133/75 (94) 97 97.9 03/28/18 00:10 98.4 89 20 112/68 (83) 98 98.4 03/27/18 20:56 92 116/62 03/27/18 20:22 98.6 92 18 116/62 (80) 98 98.6 03/27/18 20:17 Room Air 03/27/18 16:00 98.6 76 18 130/72 (91) 100 98.6 Intake and Output 03/27/18 03/28/18 19:00 07:00 Intake Total 900 ml 881.6667 ml Output Total 850 ml Balance 900 ml 31.6667 ml IV Total 881.6667 ml Other 900 ml Output Urine Total 850 ml # Bowel Movements 2 General Appearance: WD/WN HEENT: normocephalic, atraumatic Respiratory/Chest: chest wall non-tender, lungs clear Cardiovascular: normal peripheral pulses, normal rate Skin: no rash, no ulcers Laboratory Tests 03/28/18 05:20: White Blood Count 13.5H, Red Blood Count 3.39L, Hemoglobin 9.9L, Hematocrit 30.5L, Mean Corpuscular Volume 90, Mean Corpuscular Hemoglobin 29.2, Mean Corpuscular Hemoglobin Concent 32.5, Red Cell Distribution Width 16.5H, Platelet Count 269, Mean Platelet Volume 6.1L, Neutrophils (%) (Auto) 78.7H, Lymphocytes (%) (Auto) 11.8L, Monocytes (%) (Auto) 4.6, Eosinophils (%) (Auto) 4.7H, Basophils (%) (Auto) 0.2, Sodium Level 148H, Potassium Level 4.3, Chloride Level 117H, Carbon Dioxide Level 19L, Anion Gap 12, Blood Urea Nitrogen 62H, Creatinine 3.5H, Estimat Glomerular Filtration Rate 17.7, Glucose Level 266#H, Uric Acid 5.8, Calcium Level 8.5, Phosphorus Level 3.1, Magnesium Level 1.8, Total Bilirubin 0.4, Gamma Glutamyl Transpeptidase 10, Aspartate Amino Transf (AST/SGOT) 10L, Alanine Aminotransferase (ALT/SGPT) 12, Alkaline Phosphatase 80, Troponin I 0.014, Total Protein 5.3L, Albumin 2.0L, Globulin 3.3 , Albumin/Globulin Ratio 0.6L Current Medications Medications (Trade) Dose Ordered Sig/Dunia Route PRN Reason Start Time Stop Time Status Last Admin Dose Admin Acetaminophen (Tylenol) 650 mg Q6H PRN ORAL Mild Pain/Temp > 100.5 03/25/18 08:00 04/22/18 07:59 Chlorhexidine Gluconate (Eloisa-Hex 2%) 1 applic DAILY@1999 TOPIC 03/25/18 20:00 04/23/18 19:59 03/27/18 20:56 Clindamycin HCl (Cleocin) 150 mg EVERY 6 HOURS ORAL 03/26/18 12:00 04/04/18 20:00 03/28/18 11:51 Clotrimazole (Lotrimin) 1 applic THREE TIMES A DAY TOPIC 03/25/18 09:00 04/22/18 17:59 03/28/18 12:03 Dextrose (Dextrose 50%) 25 ml STAT PRN IV Hypoglycemia 03/25/18 09:00 04/23/18 08:59 Dextrose (Dextrose 50%) 50 ml STAT PRN IV Hypoglycemia 03/25/18 09:00 04/23/18 08:59 Duloxetine HCl (Cymbalta) 30 mg DAILY ORAL 03/25/18 09:00 04/22/18 08:59 03/28/18 08:23 Ertapenem 0.5 gm/ Sodium Chloride 55 ml @ 110 mls/hr Q24H IVPB 03/25/18 10:00 04/01/18 12:00 03/28/18 10:11 Folic Acid (Folate) 2 mg DAILY ORAL 03/25/18 09:00 04/24/18 08:59 03/28/18 08:23 Heparin Sodium (Porcine) (Heparin 5000 units/ml) 5,000 units EVERY 12 HOURS SUBQ 03/25/18 09:00 04/22/18 08:59 03/28/18 08:27 Insulin Aspart (NovoLOG) BEFORE MEALS AND HS SUBQ 03/25/18 11:30 04/23/18 20:59 03/28/18 12:08 Insulin Aspart (NovoLOG) 4 units NOVOTIAC SUBQ 03/25/18 11:50 04/24/18 06:29 03/28/18 12:08 Insulin Detemir (Levemir) 10 units Q12HR SUBQ 03/25/18 09:00 04/23/18 20:59 03/28/18 08:54 Metoclopramide HCl (Reglan) 10 mg Q6H PRN IVP Nausea & Vomiting 03/25/18 09:00 04/22/18 08:59 Metoprolol Succinate (Toprol XL) 25 mg Q12HR ORAL 03/25/18 09:00 04/22/18 20:59 03/28/18 08:25 Pantoprazole (Protonix) 40 mg DAILY ORAL 03/25/18 09:00 04/23/18 08:59 03/28/18 08:23 Sodium Bicarbonate 50 ml/ Dextrose 1,050 ml @ 100 mls/hr [id number] IV 03/26/18 14:00 04/25/18 13:59 03/28/18 08:20 Sodium Citrate (Bicitra) 30 ml EVERY 6 HOURS ORAL 03/25/18 12:00 04/22/18 17:59 03/28/18 11:51 Esdras Delgado MD Mar 28, 2018 14:51
[2018-03-28 16:13] VITALS: BP 121/62
--- NOTE | 2018-03-28 19:45 | Internal Med Progress Note ---
Subjective Date of Service: Mar 28, 2018 Physician Name Jose Glasgow Attending Physician Christopher Rosado MD Current Medications Medications (Trade) Dose Ordered Sig/Dunia Route PRN Reason Start Time Stop Time Status Last Admin Dose Admin Acetaminophen (Tylenol) 650 mg Q6H PRN ORAL Mild Pain/Temp > 100.5 03/25/18 08:00 04/22/18 07:59 Chlorhexidine Gluconate (Eloisa-Hex 2%) 1 applic DAILY@1999 TOPIC 03/25/18 20:00 04/23/18 19:59 03/27/18 20:56 Clindamycin HCl (Cleocin) 150 mg EVERY 6 HOURS ORAL 03/26/18 12:00 04/04/18 20:00 03/28/18 17:24 Clotrimazole (Lotrimin) 1 applic THREE TIMES A DAY TOPIC 03/25/18 09:00 04/22/18 17:59 03/28/18 17:24 Dextrose (Dextrose 50%) 25 ml STAT PRN IV Hypoglycemia 03/25/18 09:00 04/23/18 08:59 Dextrose (Dextrose 50%) 50 ml STAT PRN IV Hypoglycemia 03/25/18 09:00 04/23/18 08:59 Duloxetine HCl (Cymbalta) 30 mg DAILY ORAL 03/25/18 09:00 04/22/18 08:59 03/28/18 08:23 Ertapenem 0.5 gm/ Sodium Chloride 55 ml @ 110 mls/hr Q24H IVPB 03/25/18 10:00 04/01/18 12:00 03/28/18 10:11 Folic Acid (Folate) 2 mg DAILY ORAL 03/25/18 09:00 04/24/18 08:59 03/28/18 08:23 Heparin Sodium (Porcine) (Heparin 5000 units/ml) 5,000 units EVERY 12 HOURS SUBQ 03/25/18 09:00 04/22/18 08:59 03/28/18 08:27 Insulin Aspart (NovoLOG) BEFORE MEALS AND HS SUBQ 03/25/18 11:30 04/23/18 20:59 03/28/18 17:27 Insulin Aspart (NovoLOG) 4 units NOVOTIAC SUBQ 03/25/18 11:50 04/24/18 06:29 03/28/18 17:27 Insulin Detemir (Levemir) 10 units Q12HR SUBQ 03/25/18 09:00 04/23/18 20:59 03/28/18 08:54 Metoclopramide HCl (Reglan) 10 mg Q6H PRN IVP Nausea & Vomiting 03/25/18 09:00 04/22/18 08:59 Metoprolol Succinate (Toprol XL) 25 mg Q12HR ORAL 03/25/18 09:00 04/22/18 20:59 03/28/18 08:25 Pantoprazole (Protonix) 40 mg DAILY ORAL 03/25/18 09:00 04/23/18 08:59 03/28/18 08:23 Sodium Bicarbonate 50 ml/ Dextrose 1,050 ml @ 100 mls/hr [id number] IV 03/26/18 14:00 04/25/18 13:59 03/28/18 17:32 Sodium Citrate (Bicitra) 30 ml EVERY 6 HOURS ORAL 03/25/18 12:00 04/22/18 17:59 03/28/18 11:51 Allergies: Coded Allergies: CEFEPIME (Verified Allergy, Intermediate, Rash, 03/01/18) Tolerates Carbapenem ROS Limited/Unobtainable: No Constitutional: Reports: no symptoms HEENT: Reports: no symptoms Cardiovascular: Reports: no symptoms Respiratory: Reports: no symptoms Gastrointestinal/Abdominal: Reports: no symptoms Genitourinary: Reports: no symptoms Neurologic/Psychiatric: Reports: no symptoms Subjective 63 YO M admitted with altered mental status. Now diabetic ketoacidosis. Cover for Int Pierre-Dr Rosado. Labile fingerstick glucose values 121-616 Objective Last Vital Signs Date Time Temp Pulse Resp B/P (MAP) Pulse Ox O2 Delivery O2 Flow Rate FiO2 03/28/18 16:13 97.9 76 18 121/62 (81) 100 97.9 03/28/18 08:00 Room Air Laboratory Tests Test 03/28/18 05:20 White Blood Count 13.5 K/UL (4.8-10.8) H Red Blood Count 3.39 M/UL (4.70-6.10) L Hemoglobin 9.9 G/DL (14.2-18.0) L Hematocrit 30.5 % (42.0-52.0) L Mean Corpuscular Volume 90 FL (80-99) Mean Corpuscular Hemoglobin 29.2 PG (27.0-31.0) Mean Corpuscular Hemoglobin Concent 32.5 G/DL (32.0-36.0) Red Cell Distribution Width 16.5 % (11.6-14.8) H Platelet Count 269 K/UL (150-450) Mean Platelet Volume 6.1 FL (6.5-10.1) L Neutrophils (%) (Auto) 78.7 % (45.0-75.0) H Lymphocytes (%) (Auto) 11.8 % (20.0-45.0) L Monocytes (%) (Auto) 4.6 % (1.0-10.0) Eosinophils (%) (Auto) 4.7 % (0.0-3.0) H Basophils (%) (Auto) 0.2 % (0.0-2.0) Sodium Level 148 MMOL/L (136-145) H Potassium Level 4.3 MMOL/L (3.5-5.1) Chloride Level 117 MMOL/L (98-107) H Carbon Dioxide Level 19 MMOL/L (21-32) L Anion Gap 12 mmol/L (5-15) Blood Urea Nitrogen 62 mg/dL (7-18) H Creatinine 3.5 MG/DL (0.55-1.30) H Estimat Glomerular Filtration Rate 17.7 mL/min (>60) Glucose Level 266 MG/DL (74-106) #H Uric Acid 5.8 MG/DL (2.6-7.2) Calcium Level 8.5 MG/DL (8.5-10.1) Phosphorus Level 3.1 MG/DL (2.5-4.9) Magnesium Level 1.8 MG/DL (1.8-2.4) Total Bilirubin 0.4 MG/DL (0.2-1.0) Gamma Glutamyl Transpeptidase 10 U/L (5-85) Aspartate Amino Transf (AST/SGOT) 10 U/L (15-37) L Alanine Aminotransferase (ALT/SGPT) 12 U/L (12-78) Alkaline Phosphatase 80 U/L (46-116) Troponin I 0.014 ng/mL (0.000-0.056) Total Protein 5.3 G/DL (6.4-8.2) L Albumin 2.0 G/DL (3.4-5.0) L Globulin 3.3 g/dL Albumin/Globulin Ratio 0.6 (1.0-2.7) L Intake and Output 03/27/18 03/28/18 19:00 07:00 Intake Total 900 ml 881.6667 ml Output Total 850 ml Balance 900 ml 31.6667 ml IV Total 881.6667 ml Other 900 ml Output Urine Total 850 ml # Bowel Movements 2 Objective PHYSICAL EXAMINATION: GENERAL: The patient is a well-developed, well-nourished, agitated white male. HEENT: Eyes, pupils equal and responsive to light and accommodation. Extraocular movements are intact. NECK: Supple without lymphadenopathy. CHEST: Lungs are clear to auscultation bilaterally without wheezes or rales. CARDIOVASCULAR: Regular rate. S1, S2 are normal without murmurs, rubs, or gallops. ABDOMEN: Soft, nontender, and nondistended. Positive bowel sounds. No evidence of hepatosplenomegaly. Currently, no rebound or guarding noted. EXTREMITIES: Negative for clubbing, cyanosis, or edema. RECTAL: Refused. GENITAL: Refused. NEUROLOGIC: Cranial nerves II through XII are grossly intact without focal deficits. Motor strength is 5/5 bilaterally intact. Deep tendon reflexes are 2+, plantar. Assessment/Plan Problem List: (1) Diabetes mellitus type II, uncontrolled Assessment & Plan: Labile FSBG values. -See endocrinology note. (2) HTN (hypertension) Assessment & Plan: Currently hypotensive (3) Hypercholesteremia (4) CKD (chronic kidney disease), stage IV (5) DKA (diabetic ketoacidoses) Assessment & Plan: D/C insulin drip-see Endocrinology note. (6) Bladder outlet obstruction Assessment & Plan: S/P suprapubic catrh (7) Encephalopathy acute (8) Retinopathy, diabetic, left eye (9) Sepsis Assessment & Plan: See ID note. 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 Cont ertapenem per ID Jose Glasgow MD Mar 28, 2018 19:45
[2018-03-28 20:00] VITALS: BP 98/58
[2018-03-28] MEDS: Dyna-Hex 2% Top Sol 2oz TOPIC SCH (21:24)
--- NOTE | 2018-03-28 22:13 | General Progress Note ---
Assessment/Plan Assessment/Plan Encephalopathy due to [facility] [place] Anxiety d/o -Cymbalta -Ativan -provided ro/st Subjective Neurologic/Psychiatric: Reports: anxiety, depressed, emotional problems Allergies: Coded Allergies: CEFEPIME (Verified Allergy, Intermediate, Rash, 03/01/18) Tolerates Carbapenem Objective Last 24 Hour Vital Signs Date Time Temp Pulse Resp B/P (MAP) Pulse Ox O2 Delivery O2 Flow Rate FiO2 03/28/18 21:00 79 98/58 03/28/18 16:13 97.9 76 18 121/62 (81) 100 97.9 03/28/18 12:00 96.4 86 18 118/72 (87) 99 96.4 03/28/18 08:25 87 116/69 03/28/18 08:00 95.7 90 18 116/69 (85) 99 95.7 03/28/18 08:00 Room Air 03/28/18 04:00 97.9 96 18 133/75 (94) 97 97.9 03/28/18 00:10 98.4 89 20 112/68 (83) 98 98.4 Intake and Output 03/27/18 03/28/18 19:00 07:00 Intake Total 900 ml 881.6667 ml Output Total 850 ml Balance 900 ml 31.6667 ml IV Total 881.6667 ml Other 900 ml Output Urine Total 850 ml # Bowel Movements 2 Laboratory Tests 03/28/18 05:20: White Blood Count 13.5H, Red Blood Count 3.39L, Hemoglobin 9.9L, Hematocrit 30.5L, Mean Corpuscular Volume 90, Mean Corpuscular Hemoglobin 29.2, Mean Corpuscular Hemoglobin Concent 32.5, Red Cell Distribution Width 16.5H, Platelet Count 269, Mean Platelet Volume 6.1L, Neutrophils (%) (Auto) 78.7H, Lymphocytes (%) (Auto) 11.8L, Monocytes (%) (Auto) 4.6, Eosinophils (%) (Auto) 4.7H, Basophils (%) (Auto) 0.2, Sodium Level 148H, Potassium Level 4.3, Chloride Level 117H, Carbon Dioxide Level 19L, Anion Gap 12, Blood Urea Nitrogen 62H, Creatinine 3.5H, Estimat Glomerular Filtration Rate 17.7, Glucose Level 266#H, Uric Acid 5.8, Calcium Level 8.5, Phosphorus Level 3.1, Magnesium Level 1.8, Total Bilirubin 0.4, Gamma Glutamyl Transpeptidase 10, Aspartate Amino Transf (AST/SGOT) 10L, Alanine Aminotransferase (ALT/SGPT) 12, Alkaline Phosphatase 80, Troponin I 0.014, Total Protein 5.3L, Albumin 2.0L, Globulin 3.3 , Albumin/Globulin Ratio 0.6L Height (Feet): 5 Height (Inches): 8.00 Weight (Pounds): 150 General Appearance: no apparent distress, alert Neurologic: depressed affect Fatmata Lu MD Mar 28, 2018 22:13
[2018-03-29] VITALS (7 sets, daily range): BP systolic 95–140; BP diastolic 50–76
[2018-03-29] MEDS: Sodium Bicarbonate 50 ML in D5W 1000ml 1,000 ML IV SCH (04:54)
[2018-03-29] MEDS: Sodium Citrate 30ml ORAL SCH ×3 (06:02→18:40)
[2018-03-29] MEDS: Clindamycin 150mg cap ORAL SCH ×4 (06:02→23:48)
[2018-03-29] MEDS: NovoLOG Insulin Flexpen SUBQ SCH ×7 (06:03→21:00)
--- NOTE | 2018-03-29 06:33 | General Progress Note ---
Assessment/Plan Problem List: (1) HTN (hypertension) ICD Codes: I10 - Essential (primary) hypertension SNOMED: 33226025 (2) CKD (chronic kidney disease), stage IV ICD Codes: N18.4 - Chronic kidney disease, stage 4 (severe) SNOMED: 840428928 (3) DKA (diabetic ketoacidoses) ICD Codes: E13.10 - DKA (diabetic ketoacidoses) SNOMED: 36959838 (4) Psychiatric disturbance ICD Codes: F99 - Psychiatric disturbance SNOMED: 40168170 (5) Acidosis, metabolic ICD Codes: E87.2 - Acidosis, metabolic SNOMED: 80592916 (6) Kidney transplant status ICD Codes: Z94.0 - Kidney transplant status SNOMED: 26142073, 284757463 (7) Renal transplant recipient ICD Codes: Z94.0 - Renal transplant recipient SNOMED: 217732175 Assessment/Plan - continue Levemir 10 units bid; with add parameters not to hold unless I am notified - continue NISS ac / hs - Novolog 4 units ac tid - hold if not eating Subjective ROS Limited/Unobtainable: Yes Allergies: Coded Allergies: CEFEPIME (Verified Allergy, Intermediate, Rash, 03/01/18) Tolerates Carbapenem Subjective events noted Levemir was held last night for BG of 67 this morning glucose is elevated Objective Last 24 Hour Vital Signs Date Time Temp Pulse Resp B/P (MAP) Pulse Ox O2 Delivery O2 Flow Rate FiO2 03/29/18 04:00 97.9 76 19 127/61 (83) 97 97.9 03/29/18 00:00 98.0 79 19 112/60 (77) 97 98.0 03/28/18 21:00 79 98/58 03/28/18 21:00 Room Air 03/28/18 20:00 98.1 79 19 98/58 (71) 99 98.1 03/28/18 16:13 97.9 76 18 121/62 (81) 100 97.9 03/28/18 12:00 96.4 86 18 118/72 (87) 99 96.4 03/28/18 08:25 87 116/69 03/28/18 08:00 95.7 90 18 116/69 (85) 99 95.7 03/28/18 08:00 Room Air Intake and Output 03/28/18 03/29/18 19:00 07:00 Intake Total 1995 ml 100 ml Output Total 400 ml Balance 1595 ml 100 ml Intake Oral 840 ml IV Total 1155 ml 100 ml Output Urine Total 400 ml # Bowel Movements 1 1 Laboratory Tests 03/29/18 06:00: White Blood Count [Pending], Red Blood Count [Pending], Hemoglobin [Pending], Hematocrit [Pending], Mean Corpuscular Volume [Pending], Mean Corpuscular Hemoglobin [Pending], Mean Corpuscular Hemoglobin Concent [Pending], Red Cell Distribution Width [Pending], Platelet Count [Pending], Mean Platelet Volume [ Pending], Neutrophils (%) (Auto) [Pending], Lymphocytes (%) (Auto) [Pending], Monocytes (%) (Auto) [Pending], Eosinophils (%) (Auto) [Pending], Basophils (%) (Auto) [Pending], Sodium Level [Pending], Potassium Level [Pending], Chloride Level [Pending], Carbon Dioxide Level [Pending], Blood Urea Nitrogen [Pending], Creatinine [Pending], Estimat Glomerular Filtration Rate [Pending], Glucose Level [Pending], Calcium Level [Pending], Phosphorus Level [Pending], Magnesium Level [Pending], Total Bilirubin [Pending], Aspartate Amino Transf (AST/SGOT) [ Pending], Alanine Aminotransferase (ALT/SGPT) [Pending], Alkaline Phosphatase [ Pending], Total Protein [Pending], Albumin [Pending], Globulin [Pending] Height (Feet): 5 Height (Inches): 8.00 Weight (Pounds): 150 General Appearance: no apparent distress Neck: normal alignment Cardiovascular: normal rate Respiratory/Chest: decreased breath sounds Abdomen: normal bowel sounds Objective Current Medications Medications (Trade) Dose Ordered Sig/Dunia Route PRN Reason Start Time Stop Time Status Last Admin Dose Admin Acetaminophen (Tylenol) 650 mg Q6H PRN ORAL Mild Pain/Temp > 100.5 03/25/18 08:00 04/22/18 07:59 Chlorhexidine Gluconate (Eloisa-Hex 2%) 1 applic DAILY@1999 TOPIC 03/25/18 20:00 04/23/18 19:59 03/28/18 21:24 Clindamycin HCl (Cleocin) 150 mg EVERY 6 HOURS ORAL 03/26/18 12:00 04/04/18 20:00 03/29/18 06:02 Clotrimazole (Lotrimin) 1 applic THREE TIMES A DAY TOPIC 03/25/18 09:00 04/22/18 17:59 03/28/18 17:24 Dextrose (Dextrose 50%) 25 ml STAT PRN IV Hypoglycemia 03/25/18 09:00 04/23/18 08:59 Dextrose (Dextrose 50%) 50 ml STAT PRN IV Hypoglycemia 03/25/18 09:00 04/23/18 08:59 Duloxetine HCl (Cymbalta) 30 mg DAILY ORAL 03/25/18 09:00 04/22/18 08:59 03/28/18 08:23 Ertapenem 0.5 gm/ Sodium Chloride 55 ml @ 110 mls/hr Q24H IVPB 03/25/18 10:00 04/01/18 12:00 03/28/18 10:11 Folic Acid (Folate) 2 mg DAILY ORAL 03/25/18 09:00 04/24/18 08:59 03/28/18 08:23 Heparin Sodium (Porcine) (Heparin 5000 units/ml) 5,000 units EVERY 12 HOURS SUBQ 03/25/18 09:00 04/22/18 08:59 03/28/18 21:26 Insulin Aspart (NovoLOG) BEFORE MEALS AND HS SUBQ 03/25/18 11:30 04/23/18 20:59 03/29/18 06:03 Insulin Aspart (NovoLOG) 4 units NOVOTIAC SUBQ 03/25/18 11:50 04/24/18 06:29 03/29/18 06:04 Insulin Detemir (Levemir) 10 units Q12HR SUBQ 03/25/18 09:00 04/23/18 20:59 03/28/18 08:54 Metoclopramide HCl (Reglan) 10 mg Q6H PRN IVP Nausea & Vomiting 03/25/18 09:00 04/22/18 08:59 Metoprolol Succinate (Toprol XL) 25 mg Q12HR ORAL 03/25/18 09:00 04/22/18 20:59 03/28/18 08:25 Pantoprazole (Protonix) 40 mg DAILY ORAL 03/25/18 09:00 04/23/18 08:59 03/28/18 08:23 Sodium Bicarbonate 50 ml/ Dextrose 1,050 ml @ 100 mls/hr [id number] IV 03/26/18 14:00 04/25/18 13:59 03/29/18 04:54 Sodium Citrate (Bicitra) 30 ml EVERY 6 HOURS ORAL 03/25/18 12:00 04/22/18 17:59 03/29/18 06:02 Item Value Date Time Bedside Blood Glucose 225 mg/dl H 03/29/18 0628 Bedside Blood Glucose 92 mg/dl 03/28/18 2100 Bedside Blood Glucose 215 mg/dl H 03/28/18 1727 Bedside Blood Glucose 294 mg/dl H 03/28/18 1208 Bedside Blood Glucose 287 mg/dl H 03/28/18 0854 Bedside Blood Glucose 287 mg/dl H 03/28/18 0612 Modesto Jacques MD Mar 29, 2018 06:33
[2018-03-29 06:40] LABS: BASOPHILS % (AUTO) 0.6 % (0.0-2.0); EOSINOPHILS % (AUTO) 6.2 % (0.0-3.0); HEMOGLOBIN 8.8 G/DL (14.2-18.0); LYMPHOCYTES % (AUTO) 16.2 % (20.0-45.0); MEAN CORPUSCULAR VOLUME 90 FL (80-99); PLATELET COUNT 237 K/UL (150-450); RED BLOOD COUNT 2.99 M/UL (4.70-6.10); RED CELL DISTRIBUTION WIDTH 16.9 % (11.6-14.8)
[2018-03-29 06:53] LABS: ALANINE AMINOTRANSFERASE 8 U/L (12-78); ALBUMIN 1.8 G/DL (3.4-5.0); ALBUMIN/GLOBULIN RATIO 0.6 (1.0-2.7); ALKALINE PHOSPHATASE 74 U/L (46-116); ANION GAP 9 mmol/L (5-15); ASPARTATE AMINO TRANSFERASE 8 U/L (15-37); BILIRUBIN,TOTAL 0.4 MG/DL (0.2-1.0); BLOOD UREA NITROGEN 59 mg/dL (7-18); CALCIUM 8.3 MG/DL (8.5-10.1); CARBON DIOXIDE 22 MMOL/L (21-32); CHLORIDE 111 MMOL/L (98-107); CREATININE 3.4 MG/DL (0.55-1.30); PHOSPHORUS 3.6 MG/DL (2.5-4.9); POTASSIUM 4.3 MMOL/L (3.5-5.1); SODIUM 142 MMOL/L (136-145)
--- NOTE | 2018-03-29 08:52 | Infectious Diseases Prog Note ---
Assessment/Plan Assessment/Plan 63 yo male who presents from a [facility]p with increased AMS and sepsis Sepsis, improving Leukocytosis Afebrile Probable complicated UTI Has suprapubic cath, - 03/24/18 Urine Cx ( ESBL P mirabilis, MRSA ) Acute on Chronic Encephalopathy - Probably due to UTI +/- Hyperglycemia Rash- - Will need to monitor. May be contact, fungal or other HTN DM Asthma COPD Kidney CA Pancreatic CA Anemia CVA CKD BPH Plan: -Continue Ertapenem # , add Clinda d# -Clotrimazole cream for the rashes -Monitor CBC and Temps -Supportive care We will continue to follow the patient during this hospitalization. Subjective Allergies: Coded Allergies: CEFEPIME (Verified Allergy, Intermediate, Rash, 03/01/18) Tolerates Carbapenem Subjective Patient A/O, Pleasant today Afebrile Objective Vital Signs Last 24 Hour Vital Signs Date Time Temp Pulse Resp B/P (MAP) Pulse Ox O2 Delivery O2 Flow Rate FiO2 03/29/18 08:01 98.1 101 18 107/73 (84) 100 98.1 03/29/18 04:00 97.9 76 19 127/61 (83) 97 97.9 03/29/18 00:00 98.0 79 19 112/60 (77) 97 98.0 03/28/18 21:00 79 98/58 03/28/18 21:00 Room Air 03/28/18 20:00 98.1 79 19 98/58 (71) 99 98.1 03/28/18 16:13 97.9 76 18 121/62 (81) 100 97.9 03/28/18 12:00 96.4 86 18 118/72 (87) 99 96.4 Height (Feet): 5 Height (Inches): 8.00 Weight (Pounds): 150 Objective Gen: NAD, Comfortable HEENT: NCAT, MMM, EOMI LUNGS: CTAB, No W/C CARDS: RRR, S1, S2, No M/R/G ABD: Soft, NT, ND, No R/G, + BS : Suprapubic cath no surrounding erythema or purulence NEURO: A/O x 1, Strength and Sensation Grossly intact SKIN: warm/dry, skin rash on feet arms and skin folds improved Laboratory Tests Test 03/29/18 06:00 White Blood Count 12.0 K/UL (4.8-10.8) H Red Blood Count 2.99 M/UL (4.70-6.10) L Hemoglobin 8.8 G/DL (14.2-18.0) L Hematocrit 27.0 % (42.0-52.0) L Mean Corpuscular Volume 90 FL (80-99) Mean Corpuscular Hemoglobin 29.3 PG (27.0-31.0) Mean Corpuscular Hemoglobin Concent 32.5 G/DL (32.0-36.0) Red Cell Distribution Width 16.9 % (11.6-14.8) H Platelet Count 237 K/UL (150-450) Mean Platelet Volume 7.4 FL (6.5-10.1) Neutrophils (%) (Auto) 71.0 % (45.0-75.0) Lymphocytes (%) (Auto) 16.2 % (20.0-45.0) L Monocytes (%) (Auto) 6.0 % (1.0-10.0) Eosinophils (%) (Auto) 6.2 % (0.0-3.0) H Basophils (%) (Auto) 0.6 % (0.0-2.0) Sodium Level 142 MMOL/L (136-145) Potassium Level 4.3 MMOL/L (3.5-5.1) Chloride Level 111 MMOL/L (98-107) H Carbon Dioxide Level 22 MMOL/L (21-32) Anion Gap 9 mmol/L (5-15) Blood Urea Nitrogen 59 mg/dL (7-18) H Creatinine 3.4 MG/DL (0.55-1.30) H Estimat Glomerular Filtration Rate 18.3 mL/min (>60) Glucose Level 254 MG/DL (74-106) H Calcium Level 8.3 MG/DL (8.5-10.1) L Phosphorus Level 3.6 MG/DL (2.5-4.9) Magnesium Level 1.6 MG/DL (1.8-2.4) L Total Bilirubin 0.4 MG/DL (0.2-1.0) Aspartate Amino Transf (AST/SGOT) 8 U/L (15-37) L Alanine Aminotransferase (ALT/SGPT) 8 U/L (12-78) L Alkaline Phosphatase 74 U/L (46-116) Total Protein 4.9 G/DL (6.4-8.2) L Albumin 1.8 G/DL (3.4-5.0) L Globulin 3.1 g/dL Albumin/Globulin Ratio 0.6 (1.0-2.7) L Current Medications Medications (Trade) Dose Ordered Sig/Dunia Route PRN Reason Start Time Stop Time Status Last Admin Dose Admin Acetaminophen (Tylenol) 650 mg Q6H PRN ORAL Mild Pain/Temp > 100.5 03/25/18 08:00 04/22/18 07:59 Albumin Human (Albuminar-5) 250 ml ONCE ONCE IV 03/29/18 10:00 03/29/18 10:01 Chlorhexidine Gluconate (Eloisa-Hex 2%) 1 applic DAILY@1999 TOPIC 03/25/18 20:00 04/23/18 19:59 03/28/18 21:24 Clindamycin HCl (Cleocin) 150 mg EVERY 6 HOURS ORAL 03/26/18 12:00 04/04/18 20:00 03/29/18 06:02 Clotrimazole (Lotrimin) 1 applic THREE TIMES A DAY TOPIC 03/25/18 09:00 04/22/18 17:59 03/28/18 17:24 Dextrose (Dextrose 50%) 25 ml STAT PRN IV Hypoglycemia 03/25/18 09:00 04/23/18 08:59 Dextrose (Dextrose 50%) 50 ml STAT PRN IV Hypoglycemia 03/25/18 09:00 04/23/18 08:59 Duloxetine HCl (Cymbalta) 30 mg DAILY ORAL 03/25/18 09:00 04/22/18 08:59 03/28/18 08:23 Ertapenem 0.5 gm/ Sodium Chloride 55 ml @ 110 mls/hr Q24H IVPB 03/25/18 10:00 04/01/18 12:00 03/28/18 10:11 Folic Acid (Folate) 2 mg DAILY ORAL 03/25/18 09:00 04/24/18 08:59 03/28/18 08:23 Heparin Sodium (Porcine) (Heparin 5000 units/ml) 5,000 units EVERY 12 HOURS SUBQ 03/25/18 09:00 04/22/18 08:59 03/28/18 21:26 Insulin Aspart (NovoLOG) BEFORE MEALS AND HS SUBQ 03/25/18 11:30 04/23/18 20:59 03/29/18 06:03 Insulin Aspart (NovoLOG) 4 units NOVOTIAC SUBQ 03/25/18 11:50 04/24/18 06:29 03/29/18 06:04 Insulin Detemir (Levemir) 10 units Q12HR SUBQ 03/29/18 09:00 04/23/18 20:59 Magnesium Sulfate 100 ml @ 100 mls/hr Q1H IVPB 03/29/18 09:00 03/29/18 10:59 Metoclopramide HCl (Reglan) 10 mg Q6H PRN IVP Nausea & Vomiting 03/25/18 09:00 04/22/18 08:59 Metoprolol Succinate (Toprol XL) 25 mg Q12HR ORAL 03/25/18 09:00 04/22/18 20:59 03/28/18 08:25 Pantoprazole (Protonix) 40 mg DAILY ORAL 03/25/18 09:00 04/23/18 08:59 03/28/18 08:23 Sodium Citrate (Bicitra) 30 ml TID ORAL 03/29/18 13:00 04/22/18 12:59 William Caputo MD Mar 29, 2018 08:52
[2018-03-29] MEDS: DULoxetine 30mg cap ORAL SCH (09:31)
[2018-03-29] MEDS: Heparin 5000 units/ml inj SUBQ SCH ×2 (09:33→22:16)
[2018-03-29] MEDS: Levemir Flexpen SUBQ SCH ×2 (09:34→22:17)
[2018-03-29] MEDS: Metoprolol Succinate XL 25mg tab ORAL SCH ×2 (09:42→22:13)
--- NOTE | 2018-03-29 09:56 | Nephrology Progress Note ---
Assessment/Plan Problem List: (1) Acute on chronic renal failure Assessment: Cr lower (2) Anemia in chronic kidney disease (3) Acidosis, metabolic Assessment: improved (4) BPH (benign prostatic hypertrophy) (5) Suprapubic catheter (6) Encephalopathy acute (7) Kidney transplant status Assessment 1) Anemia in chronic kidney disease (2) Acute on chronic renal failure Cr lower (3) Psychiatric disturbance (4) Acidosis, metabolic (5) UTI (urinary tract infection), WBCs lower (6) Encephalopathy Acute renal failure on chronic kidney disease Metabolic acidosis and HyperGlycemia h/o Recurrent hematuria history of recurrent UTI Anemia due to acute blood loss( i.e. hematuria) and CKD Leukocytosis Suprapubic catheter Neurogenic bladder BPH Elevated CPK Status post renal pancreatic transplant h/o Elevated lipase Diabetes mellitus type 2 with hx of DKA Hypertension now low BP COPD/asthma Coronary artery disease with history of NSTEMI major depressive disorder with history of suicidal attempt Plan Plan DC IV fluid and IV bicarb improved from renal stand point- K supplements as needed adjust BP meds- as needed Keep Hydrate- Bicarb via IV fluids PO Bicitra adjust dose mag as needed BS check and adjustment antibiotics watch Hgb Gastric support patient DNR monitor renal parameters avoid nephrotoxics no dialysis in the past ? DC planning Subjective ROS Limited/Unobtainable: No Constitutional: Reports: malaise Objective Objective Last 24 Hour Vital Signs Date Time Temp Pulse Resp B/P (MAP) Pulse Ox O2 Delivery O2 Flow Rate FiO2 03/29/18 09:42 103 116/71 03/29/18 08:01 98.1 101 18 107/73 (84) 100 98.1 03/29/18 04:00 97.9 76 19 127/61 (83) 97 97.9 03/29/18 00:00 98.0 79 19 112/60 (77) 97 98.0 03/28/18 21:00 79 98/58 03/28/18 21:00 Room Air 03/28/18 20:00 98.1 79 19 98/58 (71) 99 98.1 03/28/18 16:13 97.9 76 18 121/62 (81) 100 97.9 03/28/18 12:00 96.4 86 18 118/72 (87) 99 96.4 Intake and Output 03/28/18 03/29/18 19:00 07:00 Intake Total 1995 ml 200 ml Output Total 400 ml 800 ml Balance 1595 ml -600 ml Intake Oral 840 ml IV Total 1155 ml 200 ml Output Urine Total 400 ml 800 ml # Bowel Movements 1 1 Laboratory Tests 03/29/18 06:00: White Blood Count 12.0H, Red Blood Count 2.99L, Hemoglobin 8.8L, Hematocrit 27.0L, Mean Corpuscular Volume 90, Mean Corpuscular Hemoglobin 29.3, Mean Corpuscular Hemoglobin Concent 32.5, Red Cell Distribution Width 16.9H, Platelet Count 237, Mean Platelet Volume 7.4, Neutrophils (%) (Auto) 71.0, Lymphocytes (%) (Auto) 16.2L, Monocytes (%) (Auto) 6.0, Eosinophils (%) (Auto) 6.2H, Basophils (%) (Auto) 0.6, Sodium Level 142, Potassium Level 4.3, Chloride Level 111H, Carbon Dioxide Level 22, Anion Gap 9, Blood Urea Nitrogen 59H, Creatinine 3.4H, Estimat Glomerular Filtration Rate 18.3, Glucose Level 254H, Calcium Level 8.3L, Phosphorus Level 3.6, Magnesium Level 1.6L, Total Bilirubin 0.4, Aspartate Amino Transf (AST/SGOT) 8L, Alanine Aminotransferase (ALT/SGPT) 8L, Alkaline Phosphatase 74, Total Protein 4.9L, Albumin 1.8L, Globulin 3.1, Albumin/Globulin Ratio 0.6L Height (Feet): 5 Height (Inches): 8.00 Weight (Pounds): 150 General Appearance: no apparent distress Objective no other change Luis Chambers MD Mar 29, 2018 09:56
[2018-03-29] MEDS ORDERED: Albumin Human 5% 250ml IV ONE (10:00)
[2018-03-29] MEDS: Ertapenem 0.5 GM in NS 55 ML IVPB SCH (12:12)
--- NOTE | 2018-03-29 12:22 | Pulmonology Progress Note ---
Assessment/Plan Problems: (1) Encephalopathy acute (2) Acute on chronic renal failure (3) Sepsis (4) Acute hyperglycemia (5) Hypoparathyroidism (6) Pulmonary HTN (7) Psychiatric disturbance (8) Renal transplant recipient Assessment/Plan on levemir BID and novolg 4 untis before meals WBC still high feeling better K supplement improving BS better endo is following dvt prophylaxis f/u renal and endo recommendations GFR is around 15-18. Creatinine from previous admissions reviewed. Subjective ROS Limited/Unobtainable: No Allergies: Coded Allergies: CEFEPIME (Verified Allergy, Intermediate, Rash, 03/01/18) Tolerates Carbapenem Objective Last 24 Hour Vital Signs Date Time Temp Pulse Resp B/P (MAP) Pulse Ox O2 Delivery O2 Flow Rate FiO2 03/29/18 12:04 98.1 80 20 97/50 (66) 97 98.1 03/29/18 09:42 103 116/71 03/29/18 09:00 Room Air 03/29/18 08:40 103 116/71 (86) 03/29/18 08:01 98.1 101 18 107/73 (84) 100 98.1 03/29/18 04:00 97.9 76 19 127/61 (83) 97 97.9 03/29/18 00:00 98.0 79 19 112/60 (77) 97 98.0 03/28/18 21:00 79 98/58 03/28/18 21:00 Room Air 03/28/18 20:00 98.1 79 19 98/58 (71) 99 98.1 03/28/18 16:13 97.9 76 18 121/62 (81) 100 97.9 Intake and Output 03/28/18 03/29/18 19:00 07:00 Intake Total 1995 ml 200 ml Output Total 400 ml 800 ml Balance 1595 ml -600 ml Intake Oral 840 ml IV Total 1155 ml 200 ml Output Urine Total 400 ml 800 ml # Bowel Movements 1 1 General Appearance: WD/WN, cachetic HEENT: normocephalic Respiratory/Chest: chest wall non-tender, lungs clear Cardiovascular: normal peripheral pulses, normal rate Abdomen: normal bowel sounds, soft, non tender Genitourinary: normal external genitalia Extremities: no clubbing Neurologic/Psychiatric: body design checker II-XII grossly normal Laboratory Tests 03/29/18 06:00: White Blood Count 12.0H, Red Blood Count 2.99L, Hemoglobin 8.8L, Hematocrit 27.0L, Mean Corpuscular Volume 90, Mean Corpuscular Hemoglobin 29.3, Mean Corpuscular Hemoglobin Concent 32.5, Red Cell Distribution Width 16.9H, Platelet Count 237, Mean Platelet Volume 7.4, Neutrophils (%) (Auto) 71.0, Lymphocytes (%) (Auto) 16.2L, Monocytes (%) (Auto) 6.0, Eosinophils (%) (Auto) 6.2H, Basophils (%) (Auto) 0.6, Sodium Level 142, Potassium Level 4.3, Chloride Level 111H, Carbon Dioxide Level 22, Anion Gap 9, Blood Urea Nitrogen 59H, Creatinine 3.4H, Estimat Glomerular Filtration Rate 18.3, Glucose Level 254H, Calcium Level 8.3L, Phosphorus Level 3.6, Magnesium Level 1.6L, Total Bilirubin 0.4, Aspartate Amino Transf (AST/SGOT) 8L, Alanine Aminotransferase (ALT/SGPT) 8L, Alkaline Phosphatase 74, Total Protein 4.9L, Albumin 1.8L, Globulin 3.1, Albumin/Globulin Ratio 0.6L Current Medications Medications (Trade) Dose Ordered Sig/Dunia Route PRN Reason Start Time Stop Time Status Last Admin Dose Admin Acetaminophen (Tylenol) 650 mg Q6H PRN ORAL Mild Pain/Temp > 100.5 03/25/18 08:00 04/22/18 07:59 Chlorhexidine Gluconate (Eloisa-Hex 2%) 1 applic DAILY@1999 TOPIC 03/25/18 20:00 04/23/18 19:59 03/28/18 21:24 Clindamycin HCl (Cleocin) 150 mg EVERY 6 HOURS ORAL 03/26/18 12:00 04/04/18 20:00 03/29/18 12:11 Clotrimazole (Lotrimin) 1 applic THREE TIMES A DAY TOPIC 03/25/18 09:00 04/22/18 17:59 03/29/18 09:53 Dextrose (Dextrose 50%) 25 ml STAT PRN IV Hypoglycemia 03/25/18 09:00 04/23/18 08:59 Dextrose (Dextrose 50%) 50 ml STAT PRN IV Hypoglycemia 03/25/18 09:00 04/23/18 08:59 Duloxetine HCl (Cymbalta) 30 mg DAILY ORAL 03/25/18 09:00 04/22/18 08:59 03/29/18 09:31 Ertapenem 0.5 gm/ Sodium Chloride 55 ml @ 110 mls/hr Q24H IVPB 03/25/18 10:00 04/01/18 12:00 03/29/18 12:12 Folic Acid (Folate) 2 mg DAILY ORAL 03/25/18 09:00 04/24/18 08:59 03/29/18 09:31 Heparin Sodium (Porcine) (Heparin 5000 units/ml) 5,000 units EVERY 12 HOURS SUBQ 03/25/18 09:00 04/22/18 08:59 03/29/18 09:33 Insulin Aspart (NovoLOG) BEFORE MEALS AND HS SUBQ 03/25/18 11:30 04/23/18 20:59 03/29/18 12:10 Insulin Aspart (NovoLOG) 4 units NOVOTIAC SUBQ 03/25/18 11:50 04/24/18 06:29 03/29/18 12:11 Insulin Detemir (Levemir) 10 units Q12HR SUBQ 03/29/18 09:00 04/23/18 20:59 03/29/18 09:34 Metoclopramide HCl (Reglan) 10 mg Q6H PRN IVP Nausea & Vomiting 03/25/18 09:00 04/22/18 08:59 Metoprolol Succinate (Toprol XL) 25 mg Q12HR ORAL 03/25/18 09:00 04/22/18 20:59 03/29/18 09:42 Pantoprazole (Protonix) 40 mg DAILY ORAL 03/25/18 09:00 04/23/18 08:59 03/29/18 09:43 Sodium Citrate (Bicitra) 30 ml TID ORAL 03/29/18 13:00 04/22/18 12:59 Esdras Delgado MD Mar 29, 2018 12:22
--- NOTE | 2018-03-29 15:32 | Consultation ---
History of Present Illness General Date patient seen: Mar 23, 2018 Chief Complaint: Altered Level of Consciousness Reason for Consultation: Sepsis Present Illness HPI 63-year-old who [facility] the pt has hx of anxiety and depression. The pt is withdrawn and has been more confused than baseline. Allergies: Coded Allergies: CEFEPIME (Verified Allergy, Intermediate, Rash, 03/01/18) Tolerates Carbapenem Medication History Scheduled Amlodipine Besylate (Norvasc), 5 MG ORAL DAILY, (Reported) Atorvastatin Calcium* (Lipitor*), 10 MG ORAL BEDTIME Azathioprine* (Imuran*), 50 MG PO DAILY, (Reported) Daptomycin (DAPTOmycin), 350 MG IV EVERY OTHER DAY Duloxetine Hcl* (Cymbalta*), 30 MG ORAL DAILY, (Reported) Insulin Aspart (Novolog Flexpen), 6 UNITS SUBQ NOVOTIAC Insulin Detemir (Levemir Flexpen), 12 UNITS SUBQ BID Meropenem-0.9% Sodium Chloride (Meropenem-0.9% NaCl 500 mg/50), 500 MG IV DAILY Metoprolol Succinate* (Metoprolol Succinate*), 50 MG ORAL Q12HR, (Reported) Polyethylene Glycol 3350* (Miralax*), 17 GM ORAL DAILY, (Reported) Polyethylene Glycol* (Miralax*), 17 GM ORAL BEDTIME Sevelamer Carbonate* (Renvela*), 800 MG ORAL THREE TIMES A DAY, (Reported) Vitamin B Cmplx/Vit C/Folic AC (Nephro-Enedina Tablet), 1 TAB ORAL DAILY, (Reported ) Scheduled PRN Acetaminophen* (Acetaminophen 325MG Tablet*), 650 MG ORAL Q6H PRN for For Pain, (Reported) Hydrocortisone (Hydrocortisone), 1 % TP BID PRN for Itching, (Reported) Ondansetron* (Zofran*), 4 MG ORAL Q6H PRN for Nausea & Vomiting, (Reported) Patient History Limited by: medical condition History Provided By: Patient, Medical Record, PMD Healthcare decision maker Paul Lopez [phone] Resuscitation status Do Not Resuscitate Advanced Directive on File Yes Past Medical/Surgical History Past Medical/Surgical History: (1) Hypercholesteremia (2) HTN (hypertension) (3) Diabetes mellitus type II, uncontrolled (4) CKD (chronic kidney disease), stage IV (5) Acute hyperglycemia (6) Leukocytosis (7) UTI (urinary tract infection) (8) diabetic keto acidosis (9) Renal insufficiency (10) Acute renal failure (ARF) (11) CKD (chronic kidney disease), stage III (12) DKA (diabetic ketoacidoses) (13) C. difficile colitis (14) Staphylococcus aureus pneumonia (15) Hypernatremia (16) GI bleeding (17) Acute hyperglycemia (18) Hyponatremia (19) Coronary heart disease (20) Psychiatric disturbance (21) Pulmonary HTN (22) Acute on chronic renal failure (23) Anemia in chronic kidney disease (24) Acidosis, metabolic (25) BPH (benign prostatic hypertrophy) (26) Hyperparathyroidism (27) Suprapubic catheter (28) Blind left eye (29) FTT (failure to thrive) in adult (30) Hematemesis (31) Fever (32) Bacteremia (33) Coagulopathy (34) Hypoparathyroidism (35) Sepsis (36) DVT (deep venous thrombosis) (37) Vitamin D deficiency (38) Encephalopathy acute (39) Renal mass, right (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, diabetic, left eye (41) Bladder outlet obstruction Review of Systems Psychiatric: Reports: prior hx, anxiety, depressed feelings, emotional problems Physical Exam General Appearance: no apparent distress, alert, confused Neurologic: depressed affect Last 24 Hour Vital Signs Date Time Temp Pulse Resp B/P (MAP) Pulse Ox O2 Delivery O2 Flow Rate FiO2 03/29/18 12:04 98.1 80 20 97/50 (66) 97 98.1 03/29/18 09:42 103 116/71 03/29/18 09:00 Room Air 03/29/18 08:40 103 116/71 (86) 03/29/18 08:01 98.1 101 18 107/73 (84) 100 98.1 03/29/18 04:00 97.9 76 19 127/61 (83) 97 97.9 03/29/18 00:00 98.0 79 19 112/60 (77) 97 98.0 03/28/18 21:00 79 98/58 03/28/18 21:00 Room Air 03/28/18 20:00 98.1 79 19 98/58 (71) 99 98.1 03/28/18 16:13 97.9 76 18 121/62 (81) 100 97.9 Intake and Output 03/28/18 03/29/18 19:00 07:00 Intake Total 1995 ml 200 ml Output Total 400 ml 800 ml Balance 1595 ml -600 ml Intake Oral 840 ml IV Total 1155 ml 200 ml Output Urine Total 400 ml 800 ml # Bowel Movements 1 1 Laboratory Tests Test 03/29/18 06:00 White Blood Count 12.0 K/UL (4.8-10.8) H Red Blood Count 2.99 M/UL (4.70-6.10) L Hemoglobin 8.8 G/DL (14.2-18.0) L Hematocrit 27.0 % (42.0-52.0) L Mean Corpuscular Volume 90 FL (80-99) Mean Corpuscular Hemoglobin 29.3 PG (27.0-31.0) Mean Corpuscular Hemoglobin Concent 32.5 G/DL (32.0-36.0) Red Cell Distribution Width 16.9 % (11.6-14.8) H Platelet Count 237 K/UL (150-450) Mean Platelet Volume 7.4 FL (6.5-10.1) Neutrophils (%) (Auto) 71.0 % (45.0-75.0) Lymphocytes (%) (Auto) 16.2 % (20.0-45.0) L Monocytes (%) (Auto) 6.0 % (1.0-10.0) Eosinophils (%) (Auto) 6.2 % (0.0-3.0) H Basophils (%) (Auto) 0.6 % (0.0-2.0) Sodium Level 142 MMOL/L (136-145) Potassium Level 4.3 MMOL/L (3.5-5.1) Chloride Level 111 MMOL/L (98-107) H Carbon Dioxide Level 22 MMOL/L (21-32) Anion Gap 9 mmol/L (5-15) Blood Urea Nitrogen 59 mg/dL (7-18) H Creatinine 3.4 MG/DL (0.55-1.30) H Estimat Glomerular Filtration Rate 18.3 mL/min (>60) Glucose Level 254 MG/DL (74-106) H Calcium Level 8.3 MG/DL (8.5-10.1) L Phosphorus Level 3.6 MG/DL (2.5-4.9) Magnesium Level 1.6 MG/DL (1.8-2.4) L Total Bilirubin 0.4 MG/DL (0.2-1.0) Aspartate Amino Transf (AST/SGOT) 8 U/L (15-37) L Alanine Aminotransferase (ALT/SGPT) 8 U/L (12-78) L Alkaline Phosphatase 74 U/L (46-116) Total Protein 4.9 G/DL (6.4-8.2) L Albumin 1.8 G/DL (3.4-5.0) L Globulin 3.1 g/dL Albumin/Globulin Ratio 0.6 (1.0-2.7) L Height (Feet): 5 Height (Inches): 8.00 Weight (Pounds): 150 Medications Current Medications Medications (Trade) Dose Ordered Sig/Dunia Route PRN Reason Start Time Stop Time Status Last Admin Dose Admin Acetaminophen (Tylenol) 650 mg Q6H PRN ORAL Mild Pain/Temp > 100.5 03/25/18 08:00 04/22/18 07:59 Chlorhexidine Gluconate (Eloisa-Hex 2%) 1 applic DAILY@1999 TOPIC 03/25/18 20:00 04/23/18 19:59 03/28/18 21:24 Clindamycin HCl (Cleocin) 150 mg EVERY 6 HOURS ORAL 03/26/18 12:00 04/04/18 20:00 03/29/18 12:11 Clotrimazole (Lotrimin) 1 applic THREE TIMES A DAY TOPIC 03/25/18 09:00 04/22/18 17:59 03/29/18 13:21 Dextrose (Dextrose 50%) 25 ml STAT PRN IV Hypoglycemia 03/25/18 09:00 04/23/18 08:59 Dextrose (Dextrose 50%) 50 ml STAT PRN IV Hypoglycemia 03/25/18 09:00 04/23/18 08:59 Duloxetine HCl (Cymbalta) 30 mg DAILY ORAL 03/25/18 09:00 04/22/18 08:59 03/29/18 09:31 Ertapenem 0.5 gm/ Sodium Chloride 55 ml @ 110 mls/hr Q24H IVPB 03/25/18 10:00 04/01/18 12:00 03/29/18 12:12 Folic Acid (Folate) 2 mg DAILY ORAL 03/25/18 09:00 04/24/18 08:59 03/29/18 09:31 Heparin Sodium (Porcine) (Heparin 5000 units/ml) 5,000 units EVERY 12 HOURS SUBQ 03/25/18 09:00 04/22/18 08:59 03/29/18 09:33 Insulin Aspart (NovoLOG) BEFORE MEALS AND HS SUBQ 03/25/18 11:30 04/23/18 20:59 03/29/18 12:10 Insulin Aspart (NovoLOG) 4 units NOVOTIAC SUBQ 03/25/18 11:50 04/24/18 06:29 03/29/18 12:11 Insulin Detemir (Levemir) 10 units Q12HR SUBQ 03/29/18 09:00 04/23/18 20:59 03/29/18 09:34 Metoclopramide HCl (Reglan) 10 mg Q6H PRN IVP Nausea & Vomiting 03/25/18 09:00 04/22/18 08:59 Metoprolol Succinate (Toprol XL) 25 mg Q12HR ORAL 03/25/18 09:00 04/22/18 20:59 03/29/18 09:42 Pantoprazole (Protonix) 40 mg DAILY ORAL 03/25/18 09:00 04/23/18 08:59 03/29/18 09:43 Sodium Citrate (Bicitra) 30 ml TID ORAL 03/29/18 13:00 04/22/18 12:59 03/29/18 13:21 Assessment/Plan Status: stable Assessment/Plan [place]cephal[place] due [place] [facility] [place] Anxiety d/o -Fatmata Garcia MD Mar 29, 2018 15:32
--- NOTE | 2018-03-29 15:43 | General Progress Note ---
Assessment/Plan Status: stable, progressing Assessment/Plan [place] [facility] [place] Anxiety d/o -Cymbalta -Ativan -provided ro/st Subjective Date patient seen: Mar 29, 2018 Neurologic/Psychiatric: Reports: anxiety, depressed Allergies: Coded Allergies: CEFEPIME (Verified Allergy, Intermediate, Rash, 03/01/18) Tolerates Carbapenem Objective Last 24 Hour Vital Signs Date Time Temp Pulse Resp B/P (MAP) Pulse Ox O2 Delivery O2 Flow Rate FiO2 03/29/18 12:04 98.1 80 20 97/50 (66) 97 98.1 03/29/18 09:42 103 116/71 03/29/18 09:00 Room Air 03/29/18 08:40 103 116/71 (86) 03/29/18 08:01 98.1 101 18 107/73 (84) 100 98.1 03/29/18 04:00 97.9 76 19 127/61 (83) 97 97.9 03/29/18 00:00 98.0 79 19 112/60 (77) 97 98.0 03/28/18 21:00 79 98/58 03/28/18 21:00 Room Air 03/28/18 20:00 98.1 79 19 98/58 (71) 99 98.1 03/28/18 16:13 97.9 76 18 121/62 (81) 100 97.9 Intake and Output 03/28/18 03/29/18 19:00 07:00 Intake Total 1995 ml 200 ml Output Total 400 ml 800 ml Balance 1595 ml -600 ml Intake Oral 840 ml IV Total 1155 ml 200 ml Output Urine Total 400 ml 800 ml # Bowel Movements 1 1 Laboratory Tests 03/29/18 06:00: White Blood Count 12.0H, Red Blood Count 2.99L, Hemoglobin 8.8L, Hematocrit 27.0L, Mean Corpuscular Volume 90, Mean Corpuscular Hemoglobin 29.3, Mean Corpuscular Hemoglobin Concent 32.5, Red Cell Distribution Width 16.9H, Platelet Count 237, Mean Platelet Volume 7.4, Neutrophils (%) (Auto) 71.0, Lymphocytes (%) (Auto) 16.2L, Monocytes (%) (Auto) 6.0, Eosinophils (%) (Auto) 6.2H, Basophils (%) (Auto) 0.6, Sodium Level 142, Potassium Level 4.3, Chloride Level 111H, Carbon Dioxide Level 22, Anion Gap 9, Blood Urea Nitrogen 59H, Creatinine 3.4H, Estimat Glomerular Filtration Rate 18.3, Glucose Level 254H, Calcium Level 8.3L, Phosphorus Level 3.6, Magnesium Level 1.6L, Total Bilirubin 0.4, Aspartate Amino Transf (AST/SGOT) 8L, Alanine Aminotransferase (ALT/SGPT) 8L, Alkaline Phosphatase 74, Total Protein 4.9L, Albumin 1.8L, Globulin 3.1, Albumin/Globulin Ratio 0.6L Height (Feet): 5 Height (Inches): 8.00 Weight (Pounds): 150 General Appearance: no apparent distress, alert Neurologic: oriented x 3, responsive, depressed affect - irritable Fatmata Lu MD Mar 29, 2018 15:43
--- NOTE | 2018-03-29 18:39 | Internal Med Progress Note ---
Subjective Date of Service: Mar 29, 2018 Physician Name Jose Glasgow Attending Physician Christopher Rosado MD Current Medications Medications (Trade) Dose Ordered Sig/Dunia Route PRN Reason Start Time Stop Time Status Last Admin Dose Admin Acetaminophen (Tylenol) 650 mg Q6H PRN ORAL Mild Pain/Temp > 100.5 03/25/18 08:00 04/22/18 07:59 Chlorhexidine Gluconate (Eloisa-Hex 2%) 1 applic DAILY@2000 TOPIC 03/25/18 20:00 04/23/18 19:59 03/28/18 21:24 Clindamycin HCl (Cleocin) 150 mg EVERY 6 HOURS ORAL 03/26/18 12:00 04/04/18 20:00 03/29/18 12:11 Clotrimazole (Lotrimin) 1 applic THREE TIMES A DAY TOPIC 03/25/18 09:00 04/22/18 17:59 03/29/18 13:21 Dextrose (Dextrose 50%) 25 ml STAT PRN IV Hypoglycemia 03/25/18 09:00 04/23/18 08:59 Dextrose (Dextrose 50%) 50 ml STAT PRN IV Hypoglycemia 03/25/18 09:00 04/23/18 08:59 Duloxetine HCl (Cymbalta) 30 mg DAILY ORAL 03/25/18 09:00 04/22/18 08:59 03/29/18 09:31 Ertapenem 0.5 gm/ Sodium Chloride 55 ml @ 110 mls/hr Q24H IVPB 03/25/18 10:00 04/01/18 12:00 03/29/18 12:12 Folic Acid (Folate) 2 mg DAILY ORAL 03/25/18 09:00 04/24/18 08:59 03/29/18 09:31 Heparin Sodium (Porcine) (Heparin 5000 units/ml) 5,000 units EVERY 12 HOURS SUBQ 03/25/18 09:00 04/22/18 08:59 03/29/18 09:33 Insulin Aspart (NovoLOG) BEFORE MEALS AND HS SUBQ 03/25/18 11:30 04/23/18 20:59 03/29/18 18:25 Insulin Aspart (NovoLOG) 4 units NOVOTIAC SUBQ 03/25/18 11:50 04/24/18 06:29 03/29/18 12:11 Insulin Detemir (Levemir) 10 units Q12HR SUBQ 03/29/18 09:00 04/23/18 20:59 03/29/18 09:34 Metoclopramide HCl (Reglan) 10 mg Q6H PRN IVP Nausea & Vomiting 03/25/18 09:00 04/22/18 08:59 Metoprolol Succinate (Toprol XL) 25 mg Q12HR ORAL 03/25/18 09:00 04/22/18 20:59 03/29/18 09:42 Pantoprazole (Protonix) 40 mg DAILY ORAL 03/25/18 09:00 04/23/18 08:59 03/29/18 09:43 Sodium Citrate (Bicitra) 30 ml TID ORAL 03/29/18 13:00 04/22/18 12:59 03/29/18 13:21 Allergies: Coded Allergies: CEFEPIME (Verified Allergy, Intermediate, Rash, 03/01/18) Tolerates Carbapenem ROS Limited/Unobtainable: Yes Subjective 63 YO M admitted with altered mental status. Now diabetic ketoacidosis. Cover for Int Med-Dr Rosado. Labile fingerstick glucose values 121-616 Objective Last Vital Signs Date Time Temp Pulse Resp B/P (MAP) Pulse Ox O2 Delivery O2 Flow Rate FiO2 03/29/18 16:07 97.7 89 20 95/50 (65) 95 97.7 03/29/18 09:00 Room Air Laboratory Tests Test 03/29/18 06:00 White Blood Count 12.0 K/UL (4.8-10.8) H Red Blood Count 2.99 M/UL (4.70-6.10) L Hemoglobin 8.8 G/DL (14.2-18.0) L Hematocrit 27.0 % (42.0-52.0) L Mean Corpuscular Volume 90 FL (80-99) Mean Corpuscular Hemoglobin 29.3 PG (27.0-31.0) Mean Corpuscular Hemoglobin Concent 32.5 G/DL (32.0-36.0) Red Cell Distribution Width 16.9 % (11.6-14.8) H Platelet Count 237 K/UL (150-450) Mean Platelet Volume 7.4 FL (6.5-10.1) Neutrophils (%) (Auto) 71.0 % (45.0-75.0) Lymphocytes (%) (Auto) 16.2 % (20.0-45.0) L Monocytes (%) (Auto) 6.0 % (1.0-10.0) Eosinophils (%) (Auto) 6.2 % (0.0-3.0) H Basophils (%) (Auto) 0.6 % (0.0-2.0) Sodium Level 142 MMOL/L (136-145) Potassium Level 4.3 MMOL/L (3.5-5.1) Chloride Level 111 MMOL/L (98-107) H Carbon Dioxide Level 22 MMOL/L (21-32) Anion Gap 9 mmol/L (5-15) Blood Urea Nitrogen 59 mg/dL (7-18) H Creatinine 3.4 MG/DL (0.55-1.30) H Estimat Glomerular Filtration Rate 18.3 mL/min (>60) Glucose Level 254 MG/DL (74-106) H Calcium Level 8.3 MG/DL (8.5-10.1) L Phosphorus Level 3.6 MG/DL (2.5-4.9) Magnesium Level 1.6 MG/DL (1.8-2.4) L Total Bilirubin 0.4 MG/DL (0.2-1.0) Aspartate Amino Transf (AST/SGOT) 8 U/L (15-37) L Alanine Aminotransferase (ALT/SGPT) 8 U/L (12-78) L Alkaline Phosphatase 74 U/L (46-116) Total Protein 4.9 G/DL (6.4-8.2) L Albumin 1.8 G/DL (3.4-5.0) L Globulin 3.1 g/dL Albumin/Globulin Ratio 0.6 (1.0-2.7) L Intake and Output 03/28/18 03/29/18 19:00 07:00 Intake Total 1995 ml 200 ml Output Total 400 ml 800 ml Balance 1595 ml -600 ml Intake Oral 840 ml IV Total 1155 ml 200 ml Output Urine Total 400 ml 800 ml # Bowel Movements 1 1 Objective PHYSICAL EXAMINATION: GENERAL: The patient is a well-developed, well-nourished, agitated white male. HEENT: Eyes, pupils equal and responsive to light and accommodation. Extraocular movements are intact. NECK: Supple without lymphadenopathy. CHEST: Lungs are clear to auscultation bilaterally without wheezes or rales. CARDIOVASCULAR: Regular rate. S1, S2 are normal without murmurs, rubs, or gallops. ABDOMEN: Soft, nontender, and nondistended. Positive bowel sounds. No evidence of hepatosplenomegaly. Currently, no rebound or guarding noted. EXTREMITIES: Negative for clubbing, cyanosis, or edema. RECTAL: Refused. GENITAL: Refused. NEUROLOGIC: Cranial nerves II through XII are grossly intact without focal deficits. Motor strength is 5/5 bilaterally intact. Deep tendon reflexes are 2+, plantar. Assessment/Plan Problem List: (1) Diabetes mellitus type II, uncontrolled Assessment & Plan: Labile FSBG values. -See endocrinology note. (2) HTN (hypertension) Assessment & Plan: Currently hypotensive (3) Hypercholesteremia (4) CKD (chronic kidney disease), stage IV (5) DKA (diabetic ketoacidoses) Assessment & Plan: D/C insulin drip-see Endocrinology note. (6) Bladder outlet obstruction Assessment & Plan: S/P suprapubic catrh (7) Encephalopathy acute (8) Retinopathy, diabetic, left eye (9) Sepsis Assessment & Plan: See ID note. 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 Cont ertapenem per ID (16) Renal failure Assessment & Plan: See nephrology note. Status: unchanged Jose Glasgow MD Mar 29, 2018 18:38
[2018-03-29] MEDS: Dyna-Hex 2% Top Sol 2oz TOPIC SCH (22:12)
[2018-03-30] VITALS: BP 120/70
[2018-03-30 04:00] VITALS: BP 101/59
[2018-03-30] MEDS: Clindamycin 150mg cap ORAL SCH ×2 (05:55→12:14)
[2018-03-30] MEDS: NovoLOG Insulin Flexpen SUBQ SCH ×6 (05:59→16:40)
[2018-03-30 06:10] LABS: BASOPHILS % (AUTO) 0.5 % (0.0-2.0); EOSINOPHILS % (AUTO) 5.8 % (0.0-3.0); HEMATOCRIT 26.4 % (42.0-52.0); HEMOGLOBIN 8.7 G/DL (14.2-18.0); LYMPHOCYTES % (AUTO) 16.6 % (20.0-45.0); MEAN CORPUSCULAR VOLUME 89 FL (80-99); MONOCYTES % (AUTO) 7.4 % (1.0-10.0); NEUTROPHILS % (AUTO) 69.7 % (45.0-75.0); PLATELET COUNT 212 K/UL (150-450); RED BLOOD COUNT 2.95 M/UL (4.70-6.10); RED CELL DISTRIBUTION WIDTH 16.7 % (11.6-14.8); WHITE BLOOD COUNT 11.2 K/UL (4.8-10.8)
[2018-03-30 06:43] LABS: ANION GAP 9 mmol/L (5-15); BLOOD UREA NITROGEN 55 mg/dL (7-18); CALCIUM 8.3 MG/DL (8.5-10.1); CARBON DIOXIDE 23 MMOL/L (21-32); CHLORIDE 108 MMOL/L (98-107); CREATININE 3.3 MG/DL (0.55-1.30); POTASSIUM 4.3 MMOL/L (3.5-5.1); SODIUM 140 MMOL/L (136-145)
--- NOTE | 2018-03-30 07:24 | General Progress Note ---
Assessment/Plan Problem List: (1) HTN (hypertension) ICD Codes: I10 - Essential (primary) hypertension SNOMED: 02740748 (2) CKD (chronic kidney disease), stage IV ICD Codes: N18.4 - Chronic kidney disease, stage 4 (severe) SNOMED: 670603009 (3) DKA (diabetic ketoacidoses) ICD Codes: E13.10 - DKA (diabetic ketoacidoses) SNOMED: 56238484 (4) Psychiatric disturbance ICD Codes: F99 - Psychiatric disturbance SNOMED: 17245964 (5) Acidosis, metabolic ICD Codes: E87.2 - Acidosis, metabolic SNOMED: 39662583 (6) Kidney transplant status ICD Codes: Z94.0 - Kidney transplant status SNOMED: 88477661, 107084285 (7) Renal transplant recipient ICD Codes: Z94.0 - Renal transplant recipient SNOMED: 979911248 Assessment/Plan - continue Levemir 10 units bid; do not hold unless I am notified - continue NISS ac / hs - Novolog 4 units ac tid - hold if not eating Subjective ROS Limited/Unobtainable: Yes Allergies: Coded Allergies: CEFEPIME (Verified Allergy, Intermediate, Rash, 03/01/18) Tolerates Carbapenem Subjective events noted Objective Last 24 Hour Vital Signs Date Time Temp Pulse Resp B/P (MAP) Pulse Ox O2 Delivery O2 Flow Rate FiO2 03/30/18 04:00 98.1 89 18 101/59 (73) 97 98.1 03/30/18 00:00 97.9 79 18 120/70 (87) 98 97.9 03/29/18 22:13 80 118/65 03/29/18 20:42 Room Air 03/29/18 20:00 98.1 80 19 118/65 (82) 98 98.1 03/29/18 16:07 97.7 89 20 95/50 (65) 95 97.7 03/29/18 12:04 98.1 80 20 97/50 (66) 97 98.1 03/29/18 09:42 103 116/71 03/29/18 09:00 Room Air 03/29/18 08:40 103 116/71 (86) 03/29/18 08:01 98.1 101 18 107/73 (84) 100 98.1 Intake and Output 03/29/18 03/30/18 19:00 07:00 Intake Total 440 ml 520 ml Output Total 800 ml 300 ml Balance -360 ml 220 ml Intake Oral 240 ml 520 ml IV Total 200 ml Output Urine Total 800 ml 300 ml # Bowel Movements 1 3 Laboratory Tests 03/30/18 05:30: White Blood Count 11.2H, Red Blood Count 2.95L, Hemoglobin 8.7L, Hematocrit 26.4L, Mean Corpuscular Volume 89, Mean Corpuscular Hemoglobin 29.4, Mean Corpuscular Hemoglobin Concent 32.9, Red Cell Distribution Width 16.7H, Platelet Count 212, Mean Platelet Volume 7.0, Neutrophils (%) (Auto) 69.7, Lymphocytes (%) (Auto) 16.6L, Monocytes (%) (Auto) 7.4, Eosinophils (%) (Auto) 5.8H, Basophils (%) (Auto) 0.5, Sodium Level 140, Potassium Level 4.3, Chloride Level 108H, Carbon Dioxide Level 23, Anion Gap 9, Blood Urea Nitrogen 55H, Creatinine 3.3H, Estimat Glomerular Filtration Rate 19.0, Glucose Level 226H, Calcium Level 8.3L Height (Feet): 5 Height (Inches): 8.00 Weight (Pounds): 150 General Appearance: confused Neck: normal alignment Cardiovascular: normal rate Respiratory/Chest: decreased breath sounds Abdomen: normal bowel sounds Objective Current Medications Medications (Trade) Dose Ordered Sig/Dunia Route PRN Reason Start Time Stop Time Status Last Admin Dose Admin Acetaminophen (Tylenol) 650 mg Q6H PRN ORAL Mild Pain/Temp > 100.5 03/25/18 08:00 04/22/18 07:59 Chlorhexidine Gluconate (Eloisa-Hex 2%) 1 applic DAILY@1999 TOPIC 03/25/18 20:00 04/23/18 19:59 03/29/18 22:12 Clindamycin HCl (Cleocin) 150 mg EVERY 6 HOURS ORAL 03/26/18 12:00 04/04/18 20:00 03/30/18 05:55 Clotrimazole (Lotrimin) 1 applic THREE TIMES A DAY TOPIC 03/25/18 09:00 04/22/18 17:59 03/29/18 18:43 Dextrose (Dextrose 50%) 25 ml STAT PRN IV Hypoglycemia 03/25/18 09:00 04/23/18 08:59 Dextrose (Dextrose 50%) 50 ml STAT PRN IV Hypoglycemia 03/25/18 09:00 04/23/18 08:59 Duloxetine HCl (Cymbalta) 30 mg DAILY ORAL 03/25/18 09:00 04/22/18 08:59 03/29/18 09:31 Ertapenem 0.5 gm/ Sodium Chloride 55 ml @ 110 mls/hr Q24H IVPB 03/25/18 10:00 04/01/18 12:00 03/29/18 12:12 Folic Acid (Folate) 2 mg DAILY ORAL 03/25/18 09:00 04/24/18 08:59 03/29/18 09:31 Heparin Sodium (Porcine) (Heparin 5000 units/ml) 5,000 units EVERY 12 HOURS SUBQ 03/25/18 09:00 04/22/18 08:59 03/29/18 22:16 Insulin Aspart (NovoLOG) BEFORE MEALS AND HS SUBQ 03/25/18 11:30 04/23/18 20:59 03/30/18 05:59 Insulin Aspart (NovoLOG) 4 units NOVOTIAC SUBQ 03/25/18 11:50 04/24/18 06:29 03/30/18 06:00 Insulin Detemir (Levemir) 10 units Q12HR SUBQ 03/29/18 09:00 04/23/18 20:59 03/29/18 22:17 Metoclopramide HCl (Reglan) 10 mg Q6H PRN IVP Nausea & Vomiting 03/25/18 09:00 04/22/18 08:59 Metoprolol Succinate (Toprol XL) 25 mg Q12HR ORAL 03/25/18 09:00 04/22/18 20:59 03/29/18 22:13 Pantoprazole (Protonix) 40 mg DAILY ORAL 03/25/18 09:00 04/23/18 08:59 03/29/18 09:43 Sodium Citrate (Bicitra) 30 ml TID ORAL 03/29/18 13:00 04/22/18 12:59 03/29/18 18:40 Item Value Date Time Bedside Blood Glucose 223 mg/dl H 03/30/18 0630 Bedside Blood Glucose 83 mg/dl 03/29/18 2217 Bedside Blood Glucose 118 mg/dl 03/29/18 1825 Bedside Blood Glucose 368 mg/dl H 03/29/18 1211 Bedside Blood Glucose 225 mg/dl H 03/29/18 0934 Bedside Blood Glucose 225 mg/dl H 03/29/18 0628 Modesto Jacques MD Mar 30, 2018 07:24
[2018-03-30 08:00] VITALS: BP 91/61
[2018-03-30] MEDS: DULoxetine 30mg cap ORAL SCH (08:27)
[2018-03-30] MEDS: Sodium Citrate 30ml ORAL SCH ×2 (08:27→12:14)
[2018-03-30] MEDS: Metoprolol Succinate XL 25mg tab ORAL SCH (08:27)
[2018-03-30] MEDS: Levemir Flexpen SUBQ SCH (08:28)
[2018-03-30] MEDS: Heparin 5000 units/ml inj SUBQ SCH (08:29)
--- NOTE | 2018-03-30 08:36 | Nephrology Progress Note ---
Assessment/Plan Problem List: (1) Acute on chronic renal failure Assessment: Cr lower (2) Anemia in chronic kidney disease (3) Acidosis, metabolic Assessment: improved (4) BPH (benign prostatic hypertrophy) (5) Suprapubic catheter (6) Encephalopathy acute (7) Kidney transplant status Assessment 1) Anemia in chronic kidney disease (2) Acute on chronic renal failure Cr lower (3) Psychiatric disturbance (4) Acidosis, metabolic (5) UTI (urinary tract infection), WBCs lower (6) Encephalopathy Acute renal failure on chronic kidney disease Metabolic acidosis and HyperGlycemia h/o Recurrent hematuria history of recurrent UTI Anemia due to acute blood loss( i.e. hematuria) and CKD Leukocytosis Suprapubic catheter Neurogenic bladder BPH Elevated CPK Status post renal pancreatic transplant h/o Elevated lipase Diabetes mellitus type 2 with hx of DKA Hypertension now low BP COPD/asthma Coronary artery disease with history of NSTEMI major depressive disorder with history of suicidal attempt Plan Plan DC IV fluid and IV bicarb improved from renal stand point- K supplements as needed adjust BP meds- as needed Keep Hydrate- Bicarb via IV fluids PO Bicitra adjust dose mag as needed BS check and adjustment antibiotics watch Hgb Gastric support patient DNR monitor renal parameters avoid nephrotoxics no dialysis in the past ? DC planning Subjective ROS Limited/Unobtainable: No Constitutional: Reports: malaise Objective Objective Last 24 Hour Vital Signs Date Time Temp Pulse Resp B/P (MAP) Pulse Ox O2 Delivery O2 Flow Rate FiO2 03/30/18 08:00 97.1 98 19 91/61 (71) 96 97.1 03/30/18 08:00 97.1 98 19 91/61 (71) 96 97.1 03/30/18 04:00 98.1 89 18 101/59 (73) 97 98.1 03/30/18 00:00 97.9 79 18 120/70 (87) 98 97.9 03/29/18 22:13 80 118/65 03/29/18 20:42 Room Air 03/29/18 20:00 98.1 80 19 118/65 (82) 98 98.1 03/29/18 16:07 97.7 89 20 95/50 (65) 95 97.7 03/29/18 12:04 98.1 80 20 97/50 (66) 97 98.1 03/29/18 09:42 103 116/71 03/29/18 09:00 Room Air 03/29/18 08:40 103 116/71 (86) Intake and Output 03/29/18 03/30/18 19:00 07:00 Intake Total 440 ml 520 ml Output Total 800 ml 300 ml Balance -360 ml 220 ml Intake Oral 240 ml 520 ml IV Total 200 ml Output Urine Total 800 ml 300 ml # Bowel Movements 1 3 Laboratory Tests 03/30/18 05:30: White Blood Count 11.2H, Red Blood Count 2.95L, Hemoglobin 8.7L, Hematocrit 26.4L, Mean Corpuscular Volume 89, Mean Corpuscular Hemoglobin 29.4, Mean Corpuscular Hemoglobin Concent 32.9, Red Cell Distribution Width 16.7H, Platelet Count 212, Mean Platelet Volume 7.0, Neutrophils (%) (Auto) 69.7, Lymphocytes (%) (Auto) 16.6L, Monocytes (%) (Auto) 7.4, Eosinophils (%) (Auto) 5.8H, Basophils (%) (Auto) 0.5, Sodium Level 140, Potassium Level 4.3, Chloride Level 108H, Carbon Dioxide Level 23, Anion Gap 9, Blood Urea Nitrogen 55H, Creatinine 3.3H, Estimat Glomerular Filtration Rate 19.0, Glucose Level 226H, Calcium Level 8.3L Height (Feet): 5 Height (Inches): 8.00 Weight (Pounds): 150 General Appearance: no apparent distress Objective no other change Luis Chambers MD Mar 30, 2018 08:36
[2018-03-30] MEDS: Ertapenem 0.5 GM in NS 55 ML IVPB SCH (09:58)
[2018-03-30 12:00] VITALS: BP 103/52
--- NOTE | 2018-03-30 12:10 | Infectious Diseases Prog Note ---
Assessment/Plan Assessment/Plan 63 yo male who presents from a correction with increased AMS and sepsis Sepsis, improving Leukocytosis Afebrile Probable complicated UTI Has suprapubic cath, - 03/24/18 Urine Cx ( ESBL P mirabilis, MRSA ) Acute on Chronic Encephalopathy - Probably due to UTI +/- Hyperglycemia Rash- - Will need to monitor. May be contact, fungal or other HTN DM Asthma COPD Kidney CA Pancreatic CA Anemia CVA CKD BPH Plan: -Continue Ertapenem # , add Clinda d# -Clotrimazole cream for the rashes -Monitor CBC and Temps -Supportive care We will continue to follow the patient during this hospitalization. Subjective Allergies: Coded Allergies: CEFEPIME (Verified Allergy, Intermediate, Rash, 03/01/18) Tolerates Carbapenem Subjective Patient A/O Afebrile Objective Vital Signs Last 24 Hour Vital Signs Date Time Temp Pulse Resp B/P (MAP) Pulse Ox O2 Delivery O2 Flow Rate FiO2 03/30/18 12:00 98.1 85 19 103/52 (69) 97 98.1 03/30/18 08:30 Room Air 03/30/18 08:27 98 91/61 03/30/18 08:00 97.1 98 19 91/61 (71) 96 97.1 03/30/18 08:00 97.1 98 19 91/61 (71) 96 97.1 03/30/18 04:00 98.1 89 18 101/59 (73) 97 98.1 03/30/18 00:00 97.9 79 18 120/70 (87) 98 97.9 03/29/18 22:13 80 118/65 03/29/18 20:42 Room Air 03/29/18 20:00 98.1 80 19 118/65 (82) 98 98.1 03/29/18 16:07 97.7 89 20 95/50 (65) 95 97.7 Height (Feet): 5 Height (Inches): 8.00 Weight (Pounds): 150 Objective Gen: NAD, laying in bed HEENT: NCAT, MMM, EOMI LUNGS: CTAB, No W/C CARDS: RRR, S1, S2, No M/R/G ABD: Soft, NT, ND, No R/G, + BS : Suprapubic cath no surrounding erythema or purulence NEURO: A/O x 1, Strength and Sensation Grossly intact SKIN: warm/dry, skin rash on feet arms and skin folds improving Laboratory Tests Test 03/30/18 05:30 White Blood Count 11.2 K/UL (4.8-10.8) H Red Blood Count 2.95 M/UL (4.70-6.10) L Hemoglobin 8.7 G/DL (14.2-18.0) L Hematocrit 26.4 % (42.0-52.0) L Mean Corpuscular Volume 89 FL (80-99) Mean Corpuscular Hemoglobin 29.4 PG (27.0-31.0) Mean Corpuscular Hemoglobin Concent 32.9 G/DL (32.0-36.0) Red Cell Distribution Width 16.7 % (11.6-14.8) H Platelet Count 212 K/UL (150-450) Mean Platelet Volume 7.0 FL (6.5-10.1) Neutrophils (%) (Auto) 69.7 % (45.0-75.0) Lymphocytes (%) (Auto) 16.6 % (20.0-45.0) L Monocytes (%) (Auto) 7.4 % (1.0-10.0) Eosinophils (%) (Auto) 5.8 % (0.0-3.0) H Basophils (%) (Auto) 0.5 % (0.0-2.0) Sodium Level 140 MMOL/L (136-145) Potassium Level 4.3 MMOL/L (3.5-5.1) Chloride Level 108 MMOL/L (98-107) H Carbon Dioxide Level 23 MMOL/L (21-32) Anion Gap 9 mmol/L (5-15) Blood Urea Nitrogen 55 mg/dL (7-18) H Creatinine 3.3 MG/DL (0.55-1.30) H Estimat Glomerular Filtration Rate 19.0 mL/min (>60) Glucose Level 226 MG/DL (74-106) H Calcium Level 8.3 MG/DL (8.5-10.1) L Current Medications Medications (Trade) Dose Ordered Sig/Dunia Route PRN Reason Start Time Stop Time Status Last Admin Dose Admin Acetaminophen (Tylenol) 650 mg Q6H PRN ORAL Mild Pain/Temp > 100.5 03/25/18 08:00 04/22/18 07:59 Chlorhexidine Gluconate (Eloisa-Hex 2%) 1 applic DAILY@2000 TOPIC 03/25/18 20:00 04/23/18 19:59 03/29/18 22:12 Clindamycin HCl (Cleocin) 150 mg EVERY 6 HOURS ORAL 03/26/18 12:00 04/04/18 20:00 03/30/18 05:55 Clotrimazole (Lotrimin) 1 applic THREE TIMES A DAY TOPIC 03/25/18 09:00 04/22/18 17:59 03/30/18 08:28 Dextrose (Dextrose 50%) 25 ml STAT PRN IV Hypoglycemia 03/25/18 09:00 04/23/18 08:59 Dextrose (Dextrose 50%) 50 ml STAT PRN IV Hypoglycemia 03/25/18 09:00 04/23/18 08:59 Duloxetine HCl (Cymbalta) 30 mg DAILY ORAL 03/25/18 09:00 04/22/18 08:59 03/30/18 08:27 Ertapenem 0.5 gm/ Sodium Chloride 55 ml @ 110 mls/hr Q24H IVPB 03/25/18 10:00 04/01/18 12:00 03/30/18 09:58 Folic Acid (Folate) 2 mg DAILY ORAL 03/25/18 09:00 04/24/18 08:59 03/30/18 08:27 Heparin Sodium (Porcine) (Heparin 5000 units/ml) 5,000 units EVERY 12 HOURS SUBQ 03/25/18 09:00 04/22/18 08:59 03/30/18 08:29 Insulin Aspart (NovoLOG) BEFORE MEALS AND HS SUBQ 03/25/18 11:30 04/23/18 20:59 03/30/18 05:59 Insulin Aspart (NovoLOG) 4 units NOVOTIAC SUBQ 03/25/18 11:50 04/24/18 06:29 03/30/18 06:00 Insulin Detemir (Levemir) 10 units Q12HR SUBQ 03/29/18 09:00 04/23/18 20:59 03/30/18 08:28 Metoclopramide HCl (Reglan) 10 mg Q6H PRN IVP Nausea & Vomiting 03/25/18 09:00 04/22/18 08:59 Metoprolol Succinate (Toprol XL) 25 mg Q12HR ORAL 03/25/18 09:00 04/22/18 20:59 03/29/18 22:13 Pantoprazole (Protonix) 40 mg DAILY ORAL 03/25/18 09:00 04/23/18 08:59 03/30/18 08:27 Sodium Citrate (Bicitra) 30 ml TID ORAL 03/29/18 13:00 04/22/18 12:59 03/30/18 08:27 William Caputo MD Mar 30, 2018 12:10
[2018-03-30] MEDS ORDERED: CLEOCIN150 MG ORAL (13:20)
--- NOTE | 2018-03-30 13:22 | Pulmonology Progress Note ---
Assessment/Plan Problems: (1) Encephalopathy acute (2) Acute on chronic renal failure (3) Sepsis (4) Acute hyperglycemia (5) Hypoparathyroidism (6) Pulmonary HTN (7) Psychiatric disturbance (8) Renal transplant recipient Assessment/Plan wbc lower on levemir BID and novolg 4 untis before meals WBC still high feeling better K supplement improving BS better endo is following dvt prophylaxis f/u renal and endo recommendations GFR is around 15-18. Creatinine from previous admissions reviewed. dc to halfway with abx for 5 more days. Subjective ROS Limited/Unobtainable: No Constitutional: Reports: no symptoms HEENT: Repors: no symptoms Respiratory: Reports: no symptoms Allergies: Coded Allergies: CEFEPIME (Verified Allergy, Intermediate, Rash, 03/01/18) Tolerates Carbapenem Objective Last 24 Hour Vital Signs Date Time Temp Pulse Resp B/P (MAP) Pulse Ox O2 Delivery O2 Flow Rate FiO2 03/30/18 12:00 98.1 85 19 103/52 (69) 97 98.1 03/30/18 08:30 Room Air 03/30/18 08:27 98 91/61 03/30/18 08:00 97.1 98 19 91/61 (71) 96 97.1 03/30/18 08:00 97.1 98 19 91/61 (71) 96 97.1 03/30/18 04:00 98.1 89 18 101/59 (73) 97 98.1 03/30/18 00:00 97.9 79 18 120/70 (87) 98 97.9 03/29/18 22:13 80 118/65 03/29/18 20:42 Room Air 03/29/18 20:00 98.1 80 19 118/65 (82) 98 98.1 03/29/18 16:07 97.7 89 20 95/50 (65) 95 97.7 Intake and Output 03/29/18 03/30/18 19:00 07:00 Intake Total 440 ml 520 ml Output Total 800 ml 300 ml Balance -360 ml 220 ml Intake Oral 240 ml 520 ml IV Total 200 ml Output Urine Total 800 ml 300 ml # Bowel Movements 1 3 General Appearance: WD/WN HEENT: normocephalic, atraumatic Respiratory/Chest: chest wall non-tender, lungs clear Cardiovascular: normal peripheral pulses, normal rate Abdomen: normal bowel sounds, soft, non tender, no scars Genitourinary: normal external genitalia Extremities: no cyanosis Skin: no rash, no ulcers Neurologic/Psychiatric: no motor/sensory deficits, normal mood/affect Musculoskeletal: normal muscle bulk Laboratory Tests 03/30/18 05:30: White Blood Count 11.2H, Red Blood Count 2.95L, Hemoglobin 8.7L, Hematocrit 26.4L, Mean Corpuscular Volume 89, Mean Corpuscular Hemoglobin 29.4, Mean Corpuscular Hemoglobin Concent 32.9, Red Cell Distribution Width 16.7H, Platelet Count 212, Mean Platelet Volume 7.0, Neutrophils (%) (Auto) 69.7, Lymphocytes (%) (Auto) 16.6L, Monocytes (%) (Auto) 7.4, Eosinophils (%) (Auto) 5.8H, Basophils (%) (Auto) 0.5, Sodium Level 140, Potassium Level 4.3, Chloride Level 108H, Carbon Dioxide Level 23, Anion Gap 9, Blood Urea Nitrogen 55H, Creatinine 3.3H, Estimat Glomerular Filtration Rate 19.0, Glucose Level 226H, Calcium Level 8.3L Current Medications Medications (Trade) Dose Ordered Sig/Dunia Route PRN Reason Start Time Stop Time Status Last Admin Dose Admin Acetaminophen (Tylenol) 650 mg Q6H PRN ORAL Mild Pain/Temp > 100.5 03/25/18 08:00 04/22/18 07:59 Chlorhexidine Gluconate (Eloisa-Hex 2%) 1 applic DAILY@1999 TOPIC 03/25/18 20:00 04/23/18 19:59 03/29/18 22:12 Clindamycin HCl (Cleocin) 150 mg EVERY 6 HOURS ORAL 03/26/18 12:00 04/04/18 20:00 03/30/18 12:14 Clotrimazole (Lotrimin) 1 applic THREE TIMES A DAY TOPIC 03/25/18 09:00 04/22/18 17:59 03/30/18 12:14 Dextrose (Dextrose 50%) 25 ml STAT PRN IV Hypoglycemia 03/25/18 09:00 04/23/18 08:59 Dextrose (Dextrose 50%) 50 ml STAT PRN IV Hypoglycemia 03/25/18 09:00 04/23/18 08:59 Duloxetine HCl (Cymbalta) 30 mg DAILY ORAL 03/25/18 09:00 04/22/18 08:59 03/30/18 08:27 Ertapenem 0.5 gm/ Sodium Chloride 55 ml @ 110 mls/hr Q24H IVPB 03/25/18 10:00 04/01/18 12:00 03/30/18 09:58 Folic Acid (Folate) 2 mg DAILY ORAL 03/25/18 09:00 04/24/18 08:59 03/30/18 08:27 Heparin Sodium (Porcine) (Heparin 5000 units/ml) 5,000 units EVERY 12 HOURS SUBQ 03/25/18 09:00 04/22/18 08:59 03/30/18 08:29 Insulin Aspart (NovoLOG) BEFORE MEALS AND HS SUBQ 03/25/18 11:30 04/23/18 20:59 03/30/18 12:16 Insulin Aspart (NovoLOG) 4 units NOVOTIAC SUBQ 03/25/18 11:50 04/24/18 06:29 03/30/18 12:16 Insulin Detemir (Levemir) 10 units Q12HR SUBQ 03/29/18 09:00 04/23/18 20:59 03/30/18 08:28 Metoclopramide HCl (Reglan) 10 mg Q6H PRN IVP Nausea & Vomiting 03/25/18 09:00 04/22/18 08:59 Metoprolol Succinate (Toprol XL) 25 mg Q12HR ORAL 03/25/18 09:00 04/22/18 20:59 03/29/18 22:13 Pantoprazole (Protonix) 40 mg DAILY ORAL 03/25/18 09:00 04/23/18 08:59 03/30/18 08:27 Sodium Citrate (Bicitra) 30 ml TID ORAL 03/29/18 13:00 04/22/18 12:59 03/30/18 12:14 Esdras Delgado MD Mar 30, 2018 13:21
[2018-03-30 16:00] VITALS: BP 115/66
[2018-03-30] MEDS ORDERED: INVANZ1 GM IVPB (16:05)
--- NOTE | 2018-03-30 18:18 | Internal Med Progress Note ---
Subjective Date of Service: Mar 30, 2018 Physician Name Jose Glasgow Attending Physician Christopher Rosado MD Allergies: Coded Allergies: CEFEPIME (Verified Allergy, Intermediate, Rash, 03/01/18) Tolerates Carbapenem ROS Limited/Unobtainable: No Constitutional: Reports: no symptoms HEENT: Reports: no symptoms Cardiovascular: Reports: no symptoms Respiratory: Reports: no symptoms Gastrointestinal/Abdominal: Reports: no symptoms Genitourinary: Reports: no symptoms Neurologic/Psychiatric: Reports: no symptoms Subjective 63 YO M admitted with altered mental status. Now diabetic ketoacidosis. Cover for Int Med-Dr Rosado. Labile fingerstick glucose values 121-616 Objective Last Vital Signs Date Time Temp Pulse Resp B/P (MAP) Pulse Ox O2 Delivery O2 Flow Rate FiO2 03/30/18 16:00 98.1 58 21 115/66 (82) 99 98.1 03/30/18 08:30 Room Air Laboratory Tests Test 03/30/18 05:30 White Blood Count 11.2 K/UL (4.8-10.8) H Red Blood Count 2.95 M/UL (4.70-6.10) L Hemoglobin 8.7 G/DL (14.2-18.0) L Hematocrit 26.4 % (42.0-52.0) L Mean Corpuscular Volume 89 FL (80-99) Mean Corpuscular Hemoglobin 29.4 PG (27.0-31.0) Mean Corpuscular Hemoglobin Concent 32.9 G/DL (32.0-36.0) Red Cell Distribution Width 16.7 % (11.6-14.8) H Platelet Count 212 K/UL (150-450) Mean Platelet Volume 7.0 FL (6.5-10.1) Neutrophils (%) (Auto) 69.7 % (45.0-75.0) Lymphocytes (%) (Auto) 16.6 % (20.0-45.0) L Monocytes (%) (Auto) 7.4 % (1.0-10.0) Eosinophils (%) (Auto) 5.8 % (0.0-3.0) H Basophils (%) (Auto) 0.5 % (0.0-2.0) Sodium Level 140 MMOL/L (136-145) Potassium Level 4.3 MMOL/L (3.5-5.1) Chloride Level 108 MMOL/L (98-107) H Carbon Dioxide Level 23 MMOL/L (21-32) Anion Gap 9 mmol/L (5-15) Blood Urea Nitrogen 55 mg/dL (7-18) H Creatinine 3.3 MG/DL (0.55-1.30) H Estimat Glomerular Filtration Rate 19.0 mL/min (>60) Glucose Level 226 MG/DL (74-106) H Calcium Level 8.3 MG/DL (8.5-10.1) L Intake and Output 03/29/18 03/30/18 19:00 07:00 Intake Total 440 ml 520 ml Output Total 800 ml 300 ml Balance -360 ml 220 ml Intake Oral 240 ml 520 ml IV Total 200 ml Output Urine Total 800 ml 300 ml # Bowel Movements 1 3 Objective PHYSICAL EXAMINATION: GENERAL: The patient is a well-developed, well-nourished, agitated white male. HEENT: Eyes, pupils equal and responsive to light and accommodation. Extraocular movements are intact. NECK: Supple without lymphadenopathy. CHEST: Lungs are clear to auscultation bilaterally without wheezes or rales. CARDIOVASCULAR: Regular rate. S1, S2 are normal without murmurs, rubs, or gallops. ABDOMEN: Soft, nontender, and nondistended. Positive bowel sounds. No evidence of hepatosplenomegaly. Currently, no rebound or guarding noted. EXTREMITIES: Negative for clubbing, cyanosis, or edema. RECTAL: Refused. GENITAL: Refused. NEUROLOGIC: Cranial nerves II through XII are grossly intact without focal deficits. Motor strength is 5/5 bilaterally intact. Deep tendon reflexes are 2+, plantar. Assessment/Plan Problem List: (1) Diabetes mellitus type II, uncontrolled Assessment & Plan: Labile FSBG values. -See endocrinology note. (2) HTN (hypertension) Assessment & Plan: Currently hypotensive (3) Hypercholesteremia (4) CKD (chronic kidney disease), stage IV (5) DKA (diabetic ketoacidoses) Assessment & Plan: D/C insulin drip-see Endocrinology note. (6) Bladder outlet obstruction Assessment & Plan: S/P suprapubic catrh (7) Encephalopathy acute (8) Retinopathy, diabetic, left eye (9) Sepsis Assessment & Plan: See ID note. 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 Cont ertapenem per ID (16) Renal failure Assessment & Plan: See nephrology note. Status: stable Assessment/Plan Discharge to [facility] today Jose Glasgow MD Mar 30, 2018 18:18
--- NOTE | 2018-03-30 21:47 | General Progress Note ---
Assessment/Plan Assessment/Plan Encephalopathy due to [facility] [place] MDD Anxiety d/o -Cymbalta -Ativan -provided ro/st Subjective Date patient seen: Mar 30, 2018 Neurologic/Psychiatric: Reports: anxiety, depressed Allergies: Coded Allergies: CEFEPIME (Verified Allergy, Intermediate, Rash, 03/01/18) Tolerates Carbapenem Objective Last 24 Hour Vital Signs Date Time Temp Pulse Resp B/P (MAP) Pulse Ox O2 Delivery O2 Flow Rate FiO2 03/30/18 16:00 98.1 58 21 115/66 (82) 99 98.1 03/30/18 12:00 98.1 85 19 103/52 (69) 97 98.1 03/30/18 08:30 Room Air 03/30/18 08:27 98 91/61 03/30/18 08:00 97.1 98 19 91/61 (71) 96 97.1 03/30/18 08:00 97.1 98 19 91/61 (71) 96 97.1 03/30/18 04:00 98.1 89 18 101/59 (73) 97 98.1 03/30/18 00:00 97.9 79 18 120/70 (87) 98 97.9 03/29/18 22:13 80 118/65 Intake and Output 03/29/18 03/30/18 19:00 07:00 Intake Total 440 ml 520 ml Output Total 800 ml 300 ml Balance -360 ml 220 ml Intake Oral 240 ml 520 ml IV Total 200 ml Output Urine Total 800 ml 300 ml # Bowel Movements 1 3 Laboratory Tests 03/30/18 05:30: White Blood Count 11.2H, Red Blood Count 2.95L, Hemoglobin 8.7L, Hematocrit 26.4L, Mean Corpuscular Volume 89, Mean Corpuscular Hemoglobin 29.4, Mean Corpuscular Hemoglobin Concent 32.9, Red Cell Distribution Width 16.7H, Platelet Count 212, Mean Platelet Volume 7.0, Neutrophils (%) (Auto) 69.7, Lymphocytes (%) (Auto) 16.6L, Monocytes (%) (Auto) 7.4, Eosinophils (%) (Auto) 5.8H, Basophils (%) (Auto) 0.5, Sodium Level 140, Potassium Level 4.3, Chloride Level 108H, Carbon Dioxide Level 23, Anion Gap 9, Blood Urea Nitrogen 55H, Creatinine 3.3H, Estimat Glomerular Filtration Rate 19.0, Glucose Level 226H, Calcium Level 8.3L Height (Feet): 5 Height (Inches): 8.00 Weight (Pounds): 150 General Appearance: no apparent distress, alert Neurologic: oriented x 3, responsive, depressed affect Fatmata Lu MD Mar 30, 2018 21:47
--- NOTE | 2018-03-31 13:15 | Discharge Summary ---
Discharge Summary Discharge Summary _ DATE OF ADMISSION: 03/22/2018 DATE OF DISCHARGE: #2017 CONSULTANTS: Dr. Modesto Delgado [facility] HOSPITAL COURSE: Patient is a 63-year-old white male, who presented with chief complaint of altered mental status. Patient was admitted to [facility] in February 2018. He was discharged to [facility]. According to nursing staff, patient had become altered. He had increased altered mental status over the course of the day. He was transferred to [facility] for further evaluation. He has medical history significant for chronic renal disease stage IV, diabetes type 2, BPH, diabetic neuropathy, coronary artery disease, hypoparathyroidism and left eye blindness. He is DO NOT RESUSCITATE. On evaluation at ED, blood work showed elevated WBC of 23, hemoglobin 9, hematocrit 30. Glucose was 401. Anion gap was 22, carbon dioxide 7. Creatinine 5.6, BUN 86. He was positive for acetone and ketones. Chest x-ray was negative. He was admitted for evaluation of altered mental status/ encephalopathy, and sepsis. He was seen by infectious disease specialist. Patient was pancultured. He came in with suprapubic catheter. He was given ertapenem pending culture results. He was noted to have diffuse rash, may be contact dermatitis or fungal infection. He was given Clortrimazole cream topically. He was given IV hydration. He was placed on nothing by mouth. He was seen by store receiving specialist who ordered to transfer the patient to ICU for diabetic ketoacidosis. Insulin drip was started. PICC line was inserted to the right arm. He was given aggressive IV hydration. He was given bicarbonate IV. He was placed on Bicitra po. Hemoglobin A1c 6.6. He had a drop of hemoglobin to 7. 8/24. He received 1 unit packed RBC blood transfusion. He had encephalopathy and depressed mood with anxiety. He was given Cymbalta. He was placed on Ativan prn. On 03/24/2018. Blood glucose was better. DKA improved. Acidosis was due to renal failure. Open anion gap was due to elevated BUN. He was started on Levemir injections. Insulin drip was discontinued. Blood culture did not isolate any growth. Urine culture showed growth of ESBL Proteus mirabilis and MRSA. Clindamycin was added to his regimen. He continued to have labile blood glucose readings ranging from 120-600. Insulin injections were titrated. He was eventually transferred out of ICU. Creatinine went down to baseline of 3. Baseline GFR 15-18. Hemoglobin was stable post transfusion. Stool OB 1 was negative. Glucose levels improved. [facility] was [facility] to [facility]. FINAL DIAGNOSES: Sepsis due to complicated UTI with suprapubic catheter UTI with ESBL Proteus mirabilis and MRSA Acute on chronic toxic metabolic encephalopathy due to UTI and hyperglycemia Acute diabetic ketoacidosis Diabetes mellitus type 2 out of control Chronic kidney disease stage IV Acute on chronic renal failure Hypoparathyroidism BPH Hypercholesterolemia Hypertension Bladder outlet obstruction status post suprapubic catheter Neurogenic bladder Diabetes with Diabetic retinopathy on the left eye Blindness on the left eye Major depressive disorder with history of suicidal attempt Anxiety disorder Pulmonary hypertension Renal and pancreatic CA Renal transplant recipient Anemia Drop in hemoglobin requiring blood transfusion Rash Coronary artery disease with history of and STEMI DISPOSITION: Patient was discharged to [facility]. DISCHARGE MEDICATIONS: Refer to Discharge Medication List. Continue with clindamycin 300 mg capsule every 6 hours for 5 days I have been assigned to dictate discharge summary on this account, and I was not involved in the patient's management. Lyn Diaz NP Mar 31, 2018 13:15
== END 2018-03-30 17:50 | DRG 871 ==
LOC: EDBD 22:06 → EMR 23:01 → 4E 23:05 → EDBEDREQ 03-23 00:41 → ICU 03-23 14:30 → 4E 03-25 08:45
PROC: 02HV33Z Insertion of Infusion Device into Superior Vena Cava, Percutaneous Approach (ICD-10-PCS; 2018-03-24)
PROC: 30233N1 Transfusion of Nonautologous Red Blood Cells into Peripheral Vein, Percutaneous Approach (ICD-10-PCS; principal; 2018-03-25)
DX: A41.9 Sepsis, unspecified organism (principal); E11.10 Type 2 diabetes mellitus with ketoacidosis without coma; N18.4 Chronic kidney disease, stage 4 (severe); Z94.0 Kidney transplant status; Z94.83 Pancreas transplant status; N39.0 Urinary tract infection, site not specified; N17.9 Acute kidney failure, unspecified; D62 Acute posthemorrhagic anemia; E11.22 Type 2 diabetes mellitus with diabetic chronic kidney disease; I12.9 Hypertensive chronic kidney disease with stage 1 through stage 4 chronic kidney disease, or unspecified chronic kidney disease; N40.0 Benign prostatic hyperplasia without lower urinary tract symptoms; I25.10 Atherosclerotic heart disease of native coronary artery without angina pectoris; G62.9 Polyneuropathy, unspecified; H54.62 Unqualified visual loss, left eye, normal vision right eye; Z95.5 Presence of coronary angioplasty implant and graft; Z88.8 Allergy status to other drugs, medicaments and biological substances; E78.00 Pure hypercholesterolemia, unspecified; Z66 Do not resuscitate; B96.4 Proteus (mirabilis) (morganii) as the cause of diseases classified elsewhere; B95.62 Methicillin resistant Staphylococcus aureus infection as the cause of diseases classified elsewhere; Z16.12 Extended spectrum beta lactamase (ESBL) resistance; E20.9 Hypoparathyroidism, unspecified; N32.0 Bladder-neck obstruction; N31.9 Neuromuscular dysfunction of bladder, unspecified; E11.319 Type 2 diabetes mellitus with unspecified diabetic retinopathy without macular edema; F32.9 Major depressive disorder, single episode, unspecified; F41.9 Anxiety disorder, unspecified; I27.20 Pulmonary hypertension, unspecified; Z85.528 Personal history of other malignant neoplasm of kidney; Z85.07 Personal history of malignant neoplasm of pancreas; D64.9 Anemia, unspecified; R21 Rash and other nonspecific skin eruption; I25.2 Old myocardial infarction; D63.1 Anemia in chronic kidney disease; J44.9 Chronic obstructive pulmonary disease, unspecified; F99 Mental disorder, not otherwise specified; Z93.6 Other artificial openings of urinary tract status
CPT/HCPCS: 36415; 36569; 71045; 76937; 80048; 80053; 80061; 81001; 82009; 82270; 82378; 82550; 82553; 82607; 82728; 82746; 82947; 82962; 82977; 83036; 83540; 83550; 83615; 83690; 83735; 83880; 84100; 84105; 84484; 84550; 85007; 85025; 85044; 85060; 85610; 85651; 85730; 86140; 86850; 86900; 86901; 86920; 87040; 87081; 87086; 87181; 93005; 96365; 96375; 99285; J1815; J8499; S5561

== ENCOUNTER 2018-07-08 12:01 | Inpatient (IN) | payer MEDICARE, MEDICAID ==
[~2018-07-08] VITALS: Ht 177.8 cm; Wt 81.6 kg
[~2018-07-08 12:01] MED LIST changes: +CLEOCIN150 MG ORAL; +MIRALAX17 G2 ORAL
[2018-07-08] MEDS ORDERED: COLACE100 MG ORAL (12:25)
[2018-07-08] MEDS ORDERED: TAMSULOSIN HCL0.4 MG ORAL (12:28)
[2018-07-08] MEDS ORDERED: OMEPRAZOLE20 M2 ORAL (12:28)
[2018-07-08] MEDS ORDERED: Acetaminophen 650 MG SUPP RECTAL ONE (12:30)
[2018-07-08] MEDS ORDERED: VITAMIN D400 INTLU ORAL (12:30)
[2018-07-08] MEDS ORDERED: METOPROLOL SUCC25 MG ORAL (12:30)
[2018-07-08 12:39] VITALS: BP 159/103
[2018-07-08 13:02] LABS: HEMATOCRIT 35.8 % (42.0-52.0); HEMOGLOBIN 11.4 G/DL (14.2-18.0); MEAN CORPUSCULAR VOLUME 97 FL (80-99); PLATELET COUNT 346 K/UL (150-450); RED BLOOD COUNT 3.67 M/UL (4.70-6.10); RED CELL DISTRIBUTION WIDTH 15.8 % (11.6-14.8)
[2018-07-08 13:13] LABS: ANION GAP 24 mmol/L (5-15); BLOOD UREA NITROGEN 45 mg/dL (7-18); CALCIUM 8.7 MG/DL (8.5-10.1); CARBON DIOXIDE 17 MMOL/L (21-32); CHLORIDE 105 MMOL/L (98-107); POTASSIUM 2.9 MMOL/L (3.5-5.1); SODIUM 146 MMOL/L (136-145)
[2018-07-08 13:24] LABS: ALANINE AMINOTRANSFERASE 16 U/L (12-78); ALBUMIN 2.6 G/DL (3.4-5.0); ALBUMIN/GLOBULIN RATIO 0.6 (1.0-2.7); ALKALINE PHOSPHATASE 99 U/L (46-116); ASPARTATE AMINO TRANSFERASE 17 U/L (15-37); BILIRUBIN,TOTAL 0.5 MG/DL (0.2-1.0)
[2018-07-08] MEDS: NS w/KCl 40mEq 1,000 ML IV SCH ×2 (13:36→23:30)
--- NOTE | 2018-07-08 13:45 | Emergency Room Report ---
History of Present Illness General Chief Complaint: Nausea Source: Patient, EMS Present Illness HPI 63-year-old male presents ED for evaluation. Patient coming from senior care facility with reported fever and vomiting since this morning. Rectal temp 103.1. Patient denies chest pain or shortness of breath. Denies cough. Denies abdominal pain. Denies any diarrhea. No other aggravating relieving factors. Denies any other associated symptoms Allergies: Coded Allergies: CEFEPIME (Verified Allergy, Intermediate, Rash, 03/01/18) Tolerates Carbapenem Patient History Past Medical History: DM, HTN, asthma, COPD, CVA/TIA, other - encephalopathy Past Surgical History: none Pertinent Family History: none Social History: Denies: smoking, alcohol use, drug use Immunizations: UTD Reviewed Nursing Documentation: PMH: Agreed; PSxH: Agreed Nursing Documentation-PMH Past Medical History: No History, Except For Hx Hypertension: Yes Hx Pacemaker: No Hx Asthma: Yes Hx COPD: Yes Hx Diabetes: Yes Hx Cancer: Yes - kidney and panreas ca Hx Gastrointestinal Problems: Yes - Gastritis, Hx Dialysis: No - BPH, CKD, Anemia, renal osteodystrophy second hyperparathyroidism w/ vit D Hx Neurological Problems: Yes Hx Cerebrovascular Accident: Yes Hx Transient Ischemic Attacks: No Hx Dementia: No Hx Alzheimer's Disease: No Hx Parkinson's Disease: No Hx Meningitis: No Hx Encephalitis: Yes - 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 ATTEMPT Hx Seizures: No Hx Epilepsy: No Hx Multiple Sclerosis: No Hx Cerebral Palsy: No Hx Amyotrophic Lat Sclerosis: No Hx Guillian-[place] Syndrome: No Hx Paralysis: No Hx Peripheral Neuropathy: No Hx Spinal Cord Injury: No Hx Head Trauma: No Hx Traumatic Brain Injury: No Hx Memory Loss: No Hx Concentration Difficulty: No Hx Speech Problem: No Hx Tremors: No Hx Vertigo: No Hx Dizziness: Yes Hx Syncope: No Hx Headaches: No Hx Aphasia: No Hx Dysphasia: No Hx Numbness: No Hx Weakness: No Hx Fatigue: No Hx Neurologic Surgery: No Hx Brain Shunt: No Review of Systems All Other Systems: negative except mentioned in HPI Physical Exam Vital Signs Date Time Temp Pulse Resp B/P (MAP) Pulse Ox O2 Delivery O2 Flow Rate FiO2 07/08/18 12:06 97.5 103 18 181/96 92 Room Air Sp02 EP Interpretation: reviewed, normal General Appearance: no apparent distress, alert, GCS 15, non-toxic Head: normocephalic, atraumatic Eyes: bilateral eye normal inspection, bilateral eye PERRL ENT: hearing grossly normal, normal pharynx, no angioedema, normal voice Neck: full range of motion, supple/symm/no masses Respiratory: chest non-tender, lungs clear, normal breath sounds, speaking full sentences Cardiovascular #1: regular rate, rhythm, no edema Cardiovascular #2: 2+ carotid (R), 2+ carotid (L), 2+ radial (R), 2+ radial (L) , 2+ dorsalis pedis (R), 2+ dorsalis pedis (L) Gastrointestinal: normal bowel sounds, non tender, soft, non-distended, no guarding, no rebound Rectal: deferred Genitourinary: normal inspection, no CVA tenderness Musculoskeletal: back normal, non-tender Neurologic: alert, oriented x3, responsive, motor strength/tone normal, sensory intact, speech normal Psychiatric: judgement/insight normal, memory normal, mood/affect normal, no suicidal/homicidal ideation Reflexes: 3+ bicep (R), 3+ bicep (L), 3+ tricep (R), 3+ tricep (L), 3+ knee (R) , 3+ knee (L) Skin: normal color, no rash, warm/dry, well hydrated Lymphatic: no adenopathy Medical Decision Making Diagnostic Impression: Primary Impression: Sepsis Qualified Codes: A41.9 - Sepsis, unspecified organism Additional Impressions: Acute renal failure (ARF) Qualified Codes: N17.9 - Acute kidney failure, unspecified Pneumonia Qualified Codes: J18.1 - Lobar pneumonia, unspecified organism UTI (urinary tract infection) Qualified Codes: N39.0 - Urinary tract infection, site not specified Hypokalemia ER Course Hospital Course 63 yo M presents with fever, vomiting Differential diagnoses include: Pneumonia, UTI, sepsis, dehydration, ME/ unstable angina Clinical course Patient placed on stretcher. 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 After initial history and physical, I ordered labs, IV fluids, EKG, chest x-ray, blood cultures, UA. Labs - BUN/Cr elevated, no leukocytosis, lactate 2.8, Na 146, K 2.9, UA+ bacteria EKG - NSR, no acute ischemic changes interpreted by me CXR - RLL infiltrate Abx given. Given 30 mL per KG fluid bolus. Given rectal Tylenol for fever. K repleted Case discussed with Dr Rosado and they agreed to admit patient to their service for further care and support I feel this is a highly complex case requiring extensive working including EKG/ Rhythm strip, Xray/CT/US, Blood/urine lab work, repeat exams while in ED, and administration of strong opiates/narcotics for pain control, admission to hospital or close patient follow up. Diagnosis - sepsis, ARF, pneumonia, UTI, hypokalemia Patient admitted to telemetry in serious condition Labs Test 07/08/18 12:41 07/08/18 13:31 07/08/18 13:55 White Blood Count 7.0 K/UL (4.8-10.8) Red Blood Count 3.67 M/UL (4.70-6.10) Hemoglobin 11.4 G/DL (14.2-18.0) Hematocrit 35.8 % (42.0-52.0) Mean Corpuscular Volume 97 FL (80-99) Mean Corpuscular Hemoglobin 30.9 PG (27.0-31.0) Mean Corpuscular Hemoglobin Concent 31.7 G/DL (32.0-36.0) Red Cell Distribution Width 15.8 % (11.6-14.8) Platelet Count 346 K/UL (150-450) Mean Platelet Volume 5.1 FL (6.5-10.1) Neutrophils (%) (Auto) % (45.0-75.0) Lymphocytes (%) (Auto) % (20.0-45.0) Monocytes (%) (Auto) % (1.0-10.0) Eosinophils (%) (Auto) % (0.0-3.0) Basophils (%) (Auto) % (0.0-2.0) Differential Total Cells Counted 100 Neutrophils % (Manual) 87 % (45-75) Lymphocytes % (Manual) 4 % (20-45) Monocytes % (Manual) 0 % (1-10) Eosinophils % (Manual) 1 % (0-3) Basophils % (Manual) 0 % (0-2) Band Neutrophils 8 % (0-8) Platelet Estimate Adequate Platelet Morphology Normal Hypochromasia 1+ Anisocytosis 1+ Sodium Level 146 MMOL/L (136-145) Potassium Level 2.9 MMOL/L (3.5-5.1) Chloride Level 105 MMOL/L (98-107) Carbon Dioxide Level 17 MMOL/L (21-32) Anion Gap 24 mmol/L (5-15) Blood Urea Nitrogen 45 mg/dL (7-18) Creatinine 6.0 MG/DL (0.55-1.30) Estimat Glomerular Filtration Rate 9.5 mL/min (>60) Glucose Level 179 MG/DL (74-106) Lactic Acid Level 2.80 mmol/L (0.4-2.0) Calcium Level 8.7 MG/DL (8.5-10.1) Total Bilirubin 0.5 MG/DL (0.2-1.0) Aspartate Amino Transf (AST/SGOT) 17 U/L (15-37) Alanine Aminotransferase (ALT/SGPT) 16 U/L (12-78) Alkaline Phosphatase 99 U/L (46-116) Pro-B-Type Natriuretic Peptide 9820 pg/mL (0-125) Total Protein 7.3 G/DL (6.4-8.2) Albumin 2.6 G/DL (3.4-5.0) Globulin 4.7 g/dL Albumin/Globulin Ratio 0.6 (1.0-2.7) Urine Color Pale yellow Urine Appearance Slightly cloudy Urine pH 7 (4.5-8.0) Urine Specific [place] 1.005 (1.005-1.035) Urine Protein 4+ (NEGATIVE) Urine Glucose (UA) 2+ (NEGATIVE) Urine Ketones Negative (NEGATIVE) Urine Blood 3+ (NEGATIVE) Urine Nitrite Negative (NEGATIVE) Urine Bilirubin Negative (NEGATIVE) Urine Urobilinogen Normal MG/DL (0.0-1.0) Urine Leukocyte Esterase 3+ (NEGATIVE) Urine RBC 5-10 /HPF (0 - 0) Urine WBC 60-80 /HPF (0 - 0) Urine Squamous Epithelial Cells None /LPF (NONE/OCC) Urine Bacteria Few /HPF (NONE) EKG Diagnostic Results Rate: normal Rhythm: NSR ST Segments: no acute changes ASA given to the pt in ED: No Rhythm Strip Diag. Results EP Interpretation: yes Rhythm: NSR, no PVC's, no ectopy Chest X-Ray Diagnostic Results Chest X-Ray Diagnostic Results : Chest X-Ray Ordered: Yes # of Views/Limited/Complete: 1 View Indication: Other - weakness EP Interpretation: Yes Interpretation: no pneumothorax, other - RLL infiltrate Impression: Other - pneumonia Electronically Signed by: Electronically signed by Nestor Gray MD Last Vital Signs Date Time Temp Pulse Resp B/P (MAP) Pulse Ox O2 Delivery O2 Flow Rate FiO2 07/08/18 12:39 103.1 106 35 159/103 96 Room Air Status: improved Disposition: ADMITTED INPATIENT Condition: Serious Referrals: Christopher Rosado MD (PCP) Nestor Gray MD Jul 08, 2018 13:45
[2018-07-08 13:48] LABS: BILIRUBIN, URINE NEGATIVE (NEGATIVE); COLOR,URINE PALE YELLOW; GLUCOSE, URINE (UA) 2+ (NEGATIVE); KETONES,URINE NEGATIVE (NEGATIVE); LEUKOCYTE ESTERASE ,URINE 3+ (NEGATIVE); NITRITE,URINE NEGATIVE (NEGATIVE); PH,URINE 7 (4.5-8.0); PROTEIN,URINE 4+ (NEGATIVE); UROBILINOGEN,URINE NORMAL MG/DL (0.0-1.0)
[2018-07-08 13:49] LABS: APPEARANCE,URINE SLIGHTLY CLOUDY
--- NOTE | 2018-07-08 13:56 | Diagnostic Imaging Report ---
Indication: Cough Technique: One view of the chest Comparison: 03/22/2018 Findings: Patient is rotated to the left. Hazy opacity overlying the right lung base probably reflects overlying soft tissue. No definite acute infiltrates, effusions, or congestion. There is some atelectasis at the left lung base. The heart is borderline enlarged. Impression: Cardiomegaly No definite acute process
[2018-07-08 14:30] VITALS: BP 142/62
[2018-07-08 16:10] VITALS: BP 162/74
--- NOTE | 2018-07-08 16:20 | Consultation ---
Consult Note Consult Note asked to eval for worsening renal failure- 63-year-old male presents ED for evaluation. [facility] reported fever and vomiting since this morning. Rectal temp 103.1. Patient denies chest pain or shortness of breath. Denies cough. Denies abdominal pain. Denies any diarrhea. No other aggravating relieving factors. Denies any other associated symptoms Allergies: Coded Allergies: CEFEPIME (Verified Allergy, Intermediate, Rash, 03/01/18) Tolerates Carbapenem examined room 1 ER Poor historian Assessment/Plan Sepsis Pneumonia HypoKalemia encephalopathy Anemia in chronic kidney disease Acute on chronic renal failure Psychiatric disturbance Acidosis, metabolic UTI (urinary tract infection) Encephalopathy h/o Recurrent hematuria history of recurrent UTI Suprapubic catheter Neurogenic bladder BPH Status post renal pancreatic transplant h/o Elevated lipase Diabetes mellitus type 2 with hx of DKA Hypertension now low BP COPD/asthma Coronary artery disease with history of NSTEMI major depressive disorder with history of suicidal attempt Plan adjust BP meds- Hydrate- slow PO Bicitra mag and KCL as needed BS check and adjustment antibiotics watch Hgb Gastric support patient DNR monitor renal parameters avoid nephrotoxics no dialysis in the past Luis Chambers MD Jul 08, 2018 16:20
[2018-07-08 16:45] VITALS: BP 155/76
--- NOTE | 2018-07-08 18:04 | History & Physical ---
History and Physical History & Physicial Christopher Rosado MD Jul 08, 2018 18:04
[2018-07-08] MEDS: Tamsulosin 0.4mg cap ORAL SCH (18:37)
[2018-07-08] MEDS: Docusate 100mg cap ORAL SCH (18:38)
[2018-07-08] MEDS: Sodium Citrate 30ml ORAL SCH (18:38)
[2018-07-08] MEDS: Renvela 800mg Pkt ORAL SCH (18:38)
[2018-07-08 20:00] VITALS: BP 120/51
[2018-07-08] MEDS ORDERED: Docusate 100mg cap ORAL SCH (21:00)
[2018-07-08] MEDS: Metoprolol Succinate XL 50mg tab ORAL SCH (21:15)
--- NOTE | 2018-07-08 21:15 | History and Physical Report ---
DATE OF ADMISSION: 07/08/2018 CHIEF COMPLAINT: Fever, chills, nausea, and vomiting. HISTORY OF PRESENT ILLNESS: This is a 63-year-old gentleman with past medical history significant for diabetes type 1 with recurrent ketoacidosis without coma, history of hypertension, chronic kidney disease with failed kidney transplant, coronary artery disease, gastroesophageal reflux disease, atherosclerotic heart disease, BPH, history of dyslipidemia, left eye blindness, major depression, secondary hyperparathyroidism, status post combination of the kidney as well as pancreatic transplant at the [facility] in 1987 with worsening of renal allograft function with advanced chronic kidney disease. The patient underwent bilateral nephrectomy with Dr. Bret Gil on 06/28/[address] [facility], who presented to the hospital from nursing facility after he was noted to have a fever of 103.1, as well as nausea and vomiting. The patient, shortly after initial evaluation in the emergency, was admitted to the hospital for sepsis secondary to urinary tract infection as well as severe dehydration. PAST MEDICAL HISTORY/PAST SURGICAL HISTORY: As above, history of diabetes type 1 with DKA, hypertension, small bowel obstruction, secondary hyperparathyroidism, status post combined kidney as well as pancreatic transplant at [facility] in 1987 with failed pancreatic transplant, progressive worsening of allograft kidney, history of advanced chronic kidney disease stage 4, anemia of chronic kidney disease, atherosclerotic heart disease, depression, BPH, left eye blindness, and bilateral nephrectomy at [facility] on 06/28/2015. MEDICATIONS: Medications at home is significant for aspirin, azathioprine, vitamin D, Colace, Cymbalta, iron sulfate, Flomax, insulin, Lantus units twice a day, lispro insulin sliding scale, Lipitor, metoprolol, MiraLAX, Nephro-Enedina, Norvasc, Procrit, Proscar, Protonix, Renvela, Bicitra, Tylenol, and warfarin. ALLERGIES: No known drug allergies. SOCIAL HISTORY: The patient grew up in [place], spent many years in [place]. Never , single. 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 Attempted suicide in January 2013 and failed. No smoking, alcohol, or drugs at this time. No contact family, brother or sister. FAMILY HISTORY: Significant for mother is alive as well as father alive, history of myocardial infarction in their 40s. One brother alive in 44 with coronary artery disease. REVIEW OF SYSTEMS: Very limited secondary to the patient's status. No nausea or vomiting at this time. No loss of consciousness. No fall or head trauma. PHYSICAL EXAMINATION: VITAL SIGNS: On admission from the ER, temperature 97.5, pulse 103, respirations 18, and blood pressure 181/96. GENERAL: The patient is awake and responsive, in no acute distress. HEAD AND NECK: Pupils are equal and reactive to light. Extraocular movements are intact in the right eye. 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 Neck was supple. No JVD. LUNGS: Good air entry. No wheezing or rales. HEART: S1 and S2. Distant heart sounds. No gallops. ABDOMEN: Soft, nontender, and nontender. Suprapubic catheter was noted. EXTREMITIES: No cyanosis or clubbing. Bilateral lower extremity +2 edema. NEUROLOGIC: Cranial nerves II through XII grossly intact. Motor is 5/5 in all extremities. Gait was not assessed due to the patient's status. LABORATORY AND DIAGNOSTIC DATA: On admission from the ER, WBC of 7.0, hemoglobin 11, hematocrit 35, and platelets 346,000. Sodium 146, potassium 3.9, chloride 105, bicarb 17, BUN 45, and creatinine 6.0. Glucose is 179. Lactic acid 2.80, repeat was 2.30. CRP is 2.9. ProBNP of 9820. Urinalysis with +3 blood, +2 glucose, +4 protein, and 60 to 80 wbc's. Chest x-ray was noted to be cardiomegaly. No definitive acute process. ASSESSMENT: 1. Sepsis secondary to catheter associated urinary tract infection, present on admission. 2. Hypertension. 3. Dyslipidemia. 4. Diabetes type 1 with prior history of diabetic ketoacidosis. 5. Diabetic retinopathy of the left eye blindness. 6. End-stage renal disease secondary to diabetic nephrosclerosis. 7. Coronary artery disease with prior history of myocardial infarction. 8. 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 9. 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 10. Secondary hyperparathyroidism with vitamin D deficiency. 11. Anemia of chronic kidney disease. 12. Metabolic acidosis. 13. Depression with prior suicide attempt. PLAN: 1. Admit the patient to telemetry. 2. Code status is DNR/DNI as per POLST in the chart. 3. Resume usp medications. 4. Follow up with culture. 5. Broad spectrum antibiotic with meropenem. 6. DVT prophylaxis, heparin subcutaneous. 7. We will follow up with Dr. Chambers from Nephrology and Dr. Rich Wick from Infectious Disease. 8. We will follow up with the cultures and laboratory in the morning. 9. Accu-Chek with sliding scale. We have reviewed the records from [facility] from recent admission on 05/01/2018 and placed it in the chart. Christopher Rosado M.D. DR: CHINO JOB#: [id number] CC:
[2018-07-08] MEDS: Heparin 5000 units/ml inj SUBQ SCH (21:16)
[2018-07-08] MEDS: NovoLOG Insulin Flexpen SUBQ SCH (21:17)
[2018-07-08] MEDS: Meropenem 500 MG in NS 55 ML IVPB SCH (21:18)
--- NOTE | 2018-07-08 22:43 | Consultation ---
History of Present Illness General Chief Complaint: Nausea Present Illness HPI 63-year-old male with past medical history significant for diabetes and noncompliance with insulin, left eye blindness, severe depression, hypertension , chronic kidney disease, coronary artery disease, gastroesophageal reflux disease, atherosclerotic heart disease, BPH, dyslipidemia. The pt is well known [facility] me from [facility]. he has been depressed and withdrawn the pt remain in his bed most of the day and "want to be left alone." the pt is minimally talkative. He is not compliant with his meds. no si/hi. no psychotic sxs. mild paranoid ideation. Allergies: Coded Allergies: CEFEPIME (Verified Allergy, Intermediate, Rash, 03/01/18) Tolerates Carbapenem Medication History Scheduled Amlodipine Besylate (Norvasc), 5 MG ORAL DAILY, (Reported) Atorvastatin Calcium* (Lipitor*), 10 MG ORAL BEDTIME Azathioprine* (Imuran*), 50 MG PO DAILY, (Reported) Clindamycin HCl (Clindamycin HCl), 150 MG ORAL EVERY 6 HOURS Daptomycin (DAPTOmycin), 350 MG IV EVERY OTHER DAY Docusate Sodium* (Colace*), 100 MG ORAL TWICE A DAY, (Reported) Duloxetine Hcl* (Cymbalta*), 30 MG ORAL DAILY, (Reported) Ertapenem Sodium* (INVanz*), 1 GM IVPB DAILY, (Reported) Insulin Aspart (Novolog Flexpen), 6 UNITS SUBQ NOVOTIAC Insulin Detemir (Levemir Flexpen), 12 UNITS SUBQ BID Meropenem-0.9% Sodium Chloride (Meropenem-0.9% NaCl 500 mg/50), 500 MG IV DAILY Metoprolol Succinate* (Metoprolol Succinate*), 50 MG ORAL Q12HR, (Reported) Metoprolol Succinate* (Metoprolol Succinate*), 12.5 MG ORAL DAILY, (Reported) Omeprazole (Omeprazole), 20 MG ORAL DAILY, (Reported) Polyethylene Glycol 3350* (Miralax*), 17 GM ORAL DAILY, (Reported) Polyethylene Glycol* (Miralax*), 17 GM ORAL BEDTIME Sevelamer Carbonate* (Renvela*), 800 MG ORAL THREE TIMES A DAY, (Reported) Tamsulosin Hcl (Tamsulosin Hcl*), 8 MG ORAL BEDTIME, (Reported) Vitamin B Cmplx/Vit C/Folic AC (Nephro-Enedina Tablet), 1 TAB ORAL DAILY, (Reported ) Vitamin D (Vitamin D3), 5,000 UNITS ORAL DAILY, (Reported) Scheduled PRN Acetaminophen* (Acetaminophen 325MG Tablet*), 650 MG ORAL Q6H PRN for For Pain, (Reported) Hydrocortisone (Hydrocortisone), 1 % TP BID PRN for Itching, (Reported) Ondansetron* (Zofran*), 4 MG ORAL Q6H PRN for Nausea & Vomiting, (Reported) Patient History History Provided By: Patient, Medical Record, PMD Healthcare decision maker Resuscitation status Full Code Advanced Directive on File Review of Systems Psychiatric: Reports: prior hx, anxiety, depressed feelings, emotional problems Physical Exam General Appearance: alert Neurologic: oriented x 3, responsive, depressed affect Last 24 Hour Vital Signs Date Time Temp Pulse Resp B/P (MAP) Pulse Ox O2 Delivery O2 Flow Rate FiO2 07/08/18 21:15 107 156/88 07/08/18 20:00 97.3 68 18 120/51 (74) 98 07/08/18 18:37 111 155/87 07/08/18 17:49 Nasal Cannula 2.0 07/08/18 16:45 98.1 111 22 155/76 (102) 92 07/08/18 16:10 99.4 88 31 162/74 95 Room Air 07/08/18 16:10 99.4 88 31 162/74 95 Room Air 07/08/18 14:30 99.4 87 28 142/62 96 Room Air 07/08/18 13:08 99.4 07/08/18 12:39 103.1 106 35 159/103 96 Room Air 07/08/18 12:06 97.5 103 18 181/96 92 Room Air Laboratory Tests Test 07/08/18 12:41 07/08/18 13:31 07/08/18 13:55 White Blood Count 7.0 K/UL (4.8-10.8) Red Blood Count 3.67 M/UL (4.70-6.10) L Hemoglobin 11.4 G/DL (14.2-18.0) L Hematocrit 35.8 % (42.0-52.0) L Mean Corpuscular Volume 97 FL (80-99) Mean Corpuscular Hemoglobin 30.9 PG (27.0-31.0) Mean Corpuscular Hemoglobin Concent 31.7 G/DL (32.0-36.0) L Red Cell Distribution Width 15.8 % (11.6-14.8) H Platelet Count 346 K/UL (150-450) Mean Platelet Volume 5.1 FL (6.5-10.1) L Neutrophils (%) (Auto) % (45.0-75.0) Lymphocytes (%) (Auto) % (20.0-45.0) Monocytes (%) (Auto) % (1.0-10.0) Eosinophils (%) (Auto) % (0.0-3.0) Basophils (%) (Auto) % (0.0-2.0) Differential Total Cells Counted 100 Neutrophils % (Manual) 87 % (45-75) H Lymphocytes % (Manual) 4 % (20-45) L Monocytes % (Manual) 0 % (1-10) L Eosinophils % (Manual) 1 % (0-3) Basophils % (Manual) 0 % (0-2) Band Neutrophils 8 % (0-8) Platelet Estimate Adequate Platelet Morphology Normal Hypochromasia 1+ Anisocytosis 1+ Sodium Level 146 MMOL/L (136-145) H Potassium Level 2.9 MMOL/L (3.5-5.1) L Chloride Level 105 MMOL/L (98-107) Carbon Dioxide Level 17 MMOL/L (21-32) L Anion Gap 24 mmol/L (5-15) H Blood Urea Nitrogen 45 mg/dL (7-18) H Creatinine 6.0 MG/DL (0.55-1.30) H Estimat Glomerular Filtration Rate 9.5 mL/min (>60) Glucose Level 179 MG/DL (74-106) H Lactic Acid Level 2.80 mmol/L (0.4-2.0) H 2.30 mmol/L (0.66-2.22) H Calcium Level 8.7 MG/DL (8.5-10.1) Total Bilirubin 0.5 MG/DL (0.2-1.0) Aspartate Amino Transf (AST/SGOT) 17 U/L (15-37) Alanine Aminotransferase (ALT/SGPT) 16 U/L (12-78) Alkaline Phosphatase 99 U/L (46-116) C-Reactive Protein, Quantitative 2.9 mg/dL (0.00-0.90) H Pro-B-Type Natriuretic Peptide 9820 pg/mL (0-125) H Total Protein 7.3 G/DL (6.4-8.2) Albumin 2.6 G/DL (3.4-5.0) L Globulin 4.7 g/dL Albumin/Globulin Ratio 0.6 (1.0-2.7) L Urine Color Pale yellow Urine Appearance Slightly cloudy Urine pH 7 (4.5-8.0) Urine Specific [place] 1.005 (1.005-1.035) Urine Protein 4+ (NEGATIVE) H Urine Glucose (UA) 2+ (NEGATIVE) H Urine Ketones Negative (NEGATIVE) Urine Blood 3+ (NEGATIVE) H Urine Nitrite Negative (NEGATIVE) Urine Bilirubin Negative (NEGATIVE) Urine Urobilinogen Normal MG/DL (0.0-1.0) Urine Leukocyte Esterase 3+ (NEGATIVE) H Urine RBC 5-10 /HPF (0 - 0) H Urine WBC 60-80 /HPF (0 - 0) H Urine Squamous Epithelial Cells None /LPF (NONE/OCC) Urine Bacteria Few /HPF (NONE) Microbiology Date/Time Source Procedure Growth Status 07/08/18 12:41 Nasal Nares Influenza Types A,B Antigen (NIA) - Final Complete Height (Feet): 5 Height (Inches): 10.00 Weight (Pounds): 180 Medications Current Medications Medications (Trade) Dose Ordered Sig/Dunia Route PRN Reason Start Time Stop Time Status Last Admin Dose Admin Amlodipine Besylate (Norvasc) 5 mg BID ORAL 07/08/18 18:00 08/08/18 08:59 07/08/18 18:37 Atorvastatin Calcium (Lipitor) 10 mg BEDTIME ORAL 07/08/18 21:00 08/07/18 20:59 07/08/18 21:14 Clonidine HCl (Catapres Tab) 0.1 mg Q4H PRN ORAL bp over 160 syst 07/08/18 16:30 08/07/18 16:29 Dextrose (Dextrose 50%) 25 ml Q30M PRN IV Hypoglycemia 07/08/18 18:00 08/07/18 17:59 Dextrose (Dextrose 50%) 50 ml Q30M PRN IV Hypoglycemia 07/08/18 18:00 08/07/18 17:59 Docusate Sodium (Colace) 100 mg TWICE A DAY ORAL 07/08/18 18:00 08/07/18 17:59 07/08/18 18:38 Heparin Sodium (Porcine) (Heparin 5000 units/ml) 5,000 units EVERY 8 HOURS SUBQ 07/08/18 22:00 08/07/18 21:59 07/08/18 21:16 Insulin Aspart (NovoLOG) BEFORE MEALS AND HS SUBQ 07/08/18 21:00 08/07/18 20:59 07/08/18 21:17 Meropenem 500 mg/ Sodium Chloride 55 ml @ 110 mls/hr EVERY 12 HOURS IVPB 07/08/18 21:00 07/13/18 20:59 07/08/18 21:18 Metoprolol Succinate (Toprol XL) 50 mg Q12HR ORAL 07/08/18 21:00 08/07/18 20:59 07/08/18 21:15 Ondansetron HCl (Zofran) 4 mg Q6H PRN IVP Nausea & Vomiting 07/08/18 18:00 08/07/18 17:59 Pantoprazole (Protonix) 40 mg BID ORAL 07/08/18 18:00 08/07/18 16:29 07/08/18 18:37 Sevelamer Carbonate (Renvela) 800 mg THREE TIMES A DAY ORAL 07/08/18 18:00 08/07/18 17:59 07/08/18 18:38 Sodium Chloride 1,000 ml @ 100 mls/hr Q10H IV 07/08/18 13:30 08/07/18 13:29 07/08/18 13:36 Sodium Citrate (Bicitra) 30 ml EVERY 6 HOURS ORAL 07/08/18 18:00 08/07/18 17:59 07/08/18 18:38 Tamsulosin HCl (Flomax) 0.4 mg BID ORAL 07/08/18 18:00 08/07/18 17:59 07/08/18 18:37 Assessment/Plan Problem List: (1) Major depressive disorder ICD Codes: F32.9 - Major depressive disorder, single episode, unspecified SNOMED: [id number] Assessment/Plan cont Cymbalta 30mg qam the Wellbutrin was recently dced Fatmata uL MD Jul 08, 2018 22:43
[2018-07-09] VITALS: BP 110/62
[2018-07-09] MEDS: Sodium Citrate 30ml ORAL SCH ×4 (00:10→17:20)
[2018-07-09 04:00] VITALS: BP 151/76
[2018-07-09] MEDS: NovoLOG Insulin Flexpen SUBQ SCH ×4 (05:55→21:11)
[2018-07-09] MEDS: Heparin 5000 units/ml inj SUBQ SCH ×3 (05:57→22:22)
[2018-07-09 08:00] VITALS: BP 172/97
[2018-07-09] MEDS: Meropenem 500 MG in NS 55 ML IVPB SCH ×2 (08:41→22:20)
[2018-07-09] MEDS: DULoxetine 30mg cap ORAL SCH (08:41)
[2018-07-09] MEDS: Tamsulosin 0.4mg cap ORAL SCH ×2 (08:42→17:20)
[2018-07-09] MEDS: Renvela 800mg Pkt ORAL SCH ×3 (08:42→17:20)
[2018-07-09] MEDS: Docusate 100mg cap ORAL SCH ×2 (08:42→17:20)
[2018-07-09] MEDS: Metoprolol Succinate XL 50mg tab ORAL SCH ×2 (08:42→21:08)
[2018-07-09] MEDS ORDERED: Albuterol/Ipratropium 3ml neb HHN PRN (09:15)
[2018-07-09 12:00] VITALS: BP 101/60
[2018-07-09] MEDS: NS w/KCl 40mEq 1,000 ML IV SCH ×2 (12:45→19:30)
--- NOTE | 2018-07-09 13:24 | Consultation ---
Consult Note Assessment/Plan ID Consult # [id number] Rich Wick MD Jul 09, 2018 13:24
--- NOTE | 2018-07-09 13:53 | Nephrology Progress Note ---
Assessment/Plan Problem List: (1) CKD (chronic kidney disease), stage IV (2) HTN (hypertension) (3) UTI (urinary tract infection) (4) Encephalopathy Assessment Sepsis Pneumonia HypoKalemia encephalopathy Anemia in chronic kidney disease Acute on chronic renal failure Psychiatric disturbance Acidosis, metabolic UTI (urinary tract infection) Encephalopathy h/o Recurrent hematuria history of recurrent UTI Suprapubic catheter Neurogenic bladder BPH Status post renal pancreatic transplant h/o Elevated lipase Diabetes mellitus type 2 with hx of DKA Hypertension now low BP COPD/asthma Coronary artery disease with history of NSTEMI major depressive disorder with history of suicidal attempt Plan today's lab pending adjust BP meds- Hydrate- slow PO Bicitra mag and KCL as needed BS check and adjustment antibiotics watch Hgb Gastric support patient DNR monitor renal parameters avoid nephrotoxics no dialysis in the past Subjective ROS Limited/Unobtainable: No Constitutional: Reports: malaise Objective Objective Last 24 Hour Vital Signs Date Time Temp Pulse Resp B/P (MAP) Pulse Ox O2 Delivery O2 Flow Rate FiO2 07/09/18 12:00 74 07/09/18 09:42 88 22 Room Air 21 07/09/18 09:41 88 20 99 Room Air 21 07/09/18 09:34 36 07/09/18 09:34 98 22 97 Room Air 21 07/09/18 09:00 Nasal Cannula 2.0 07/09/18 08:42 91 172/97 07/09/18 08:42 91 172/97 07/09/18 08:00 86 07/09/18 08:00 100.0 91 22 172/97 (122) 98 07/09/18 04:00 98.0 97 18 151/76 (101) 98 07/09/18 04:00 96 07/09/18 00:00 97.7 78 18 110/62 (78) 97 07/08/18 21:15 107 156/88 07/08/18 21:00 Nasal Cannula 2.0 07/08/18 20:00 97.3 68 18 120/51 (74) 98 07/08/18 20:00 101 07/08/18 18:37 111 155/87 07/08/18 17:49 Nasal Cannula 2.0 07/08/18 16:45 98.1 111 22 155/76 (102) 92 07/08/18 16:10 99.4 88 31 162/74 95 Room Air 07/08/18 16:10 99.4 88 31 162/74 95 Room Air 07/08/18 14:30 99.4 87 28 142/62 96 Room Air Intake and Output 07/08/18 07/09/18 19:00 07:00 Intake Total 3050 ml 800 ml Output Total 600 ml 1100 ml Balance 2450 ml -300 ml Intake Oral 400 ml 800 ml IV Total 2650 ml Output Urine Total 600 ml 1100 ml # Voids 1 # Bowel Movements 1 2 Laboratory Tests 07/08/18 13:55: Lactic Acid Level 2.30H Height (Feet): 5 Height (Inches): 10.00 Weight (Pounds): 180 General Appearance: no apparent distress, lethargic Cardiovascular: tachycardia Respiratory/Chest: decreased breath sounds Abdomen: distended Luis hCambers MD Jul 09, 2018 13:53
--- NOTE | 2018-07-09 14:52 | Internal Med Progress Note ---
Subjective Date of Service: Jul 09, 2018 Physician Name Jose Glasgow Attending Physician Christopher Rosado MD Current Medications Medications (Trade) Dose Ordered Sig/Dunia Route PRN Reason Start Time Stop Time Status Last Admin Dose Admin Acetaminophen (Tylenol) 650 mg Q6H PRN ORAL Mild Pain/Temp > 100.5 07/09/18 09:15 08/08/18 09:14 Albuterol/ Ipratropium (Albuterol/ Ipratropium) 3 ml Q4H PRN HHN Shortness of Breath 07/09/18 09:15 07/14/18 09:14 07/09/18 09:38 Amlodipine Besylate (Norvasc) 5 mg BID ORAL 07/08/18 18:00 08/08/18 08:59 07/09/18 08:42 Atorvastatin Calcium (Lipitor) 10 mg BEDTIME ORAL 07/08/18 21:00 08/07/18 20:59 07/08/18 21:14 Clonidine HCl (Catapres Tab) 0.1 mg Q4H PRN ORAL bp over 160 syst 07/08/18 16:30 08/07/18 16:29 Dextrose (Dextrose 50%) 25 ml Q30M PRN IV Hypoglycemia 07/08/18 18:00 08/07/18 17:59 Dextrose (Dextrose 50%) 50 ml Q30M PRN IV Hypoglycemia 07/08/18 18:00 08/07/18 17:59 Docusate Sodium (Colace) 100 mg TWICE A DAY ORAL 07/08/18 18:00 08/07/18 17:59 07/09/18 08:42 Duloxetine HCl (Cymbalta) 30 mg DAILY ORAL 07/09/18 09:00 08/08/18 08:59 07/09/18 08:41 Heparin Sodium (Porcine) (Heparin 5000 units/ml) 5,000 units EVERY 8 HOURS SUBQ 07/08/18 22:00 08/07/18 21:59 07/09/18 05:57 Insulin Aspart (NovoLOG) BEFORE MEALS AND HS SUBQ 07/08/18 21:00 08/07/18 20:59 07/09/18 05:55 Meropenem 500 mg/ Sodium Chloride 55 ml @ 110 mls/hr EVERY 12 HOURS IVPB 07/08/18 21:00 07/13/18 20:59 07/09/18 08:41 Metoprolol Succinate (Toprol XL) 50 mg Q12HR ORAL 07/08/18 21:00 08/07/18 20:59 07/09/18 08:42 Ondansetron HCl (Zofran) 4 mg Q6H PRN IVP Nausea & Vomiting 07/08/18 18:00 08/07/18 17:59 Pantoprazole (Protonix) 40 mg BID ORAL 07/08/18 18:00 08/07/18 16:29 07/09/18 08:41 Sevelamer Carbonate (Renvela) 800 mg THREE TIMES A DAY ORAL 07/08/18 18:00 08/07/18 17:59 07/09/18 12:44 Sodium Chloride 1,000 ml @ 100 mls/hr Q10H IV 07/08/18 13:30 08/07/18 13:29 07/09/18 12:45 Sodium Citrate (Bicitra) 30 ml EVERY 6 HOURS ORAL 07/08/18 18:00 08/07/18 17:59 07/09/18 12:44 Tamsulosin HCl (Flomax) 0.4 mg BID ORAL 07/08/18 18:00 08/07/18 17:59 07/09/18 08:42 Allergies: Coded Allergies: CEFEPIME (Verified Allergy, Intermediate, Rash, 03/01/18) Tolerates Carbapenem ROS Limited/Unobtainable: No Constitutional: Reports: no symptoms HEENT: Reports: no symptoms Cardiovascular: Reports: no symptoms Respiratory: Reports: no symptoms Gastrointestinal/Abdominal: Reports: no symptoms Genitourinary: Reports: no symptoms Neurologic/Psychiatric: Reports: no symptoms Subjective 63 YO M admitted with dehydration and hypotension. Now sepsis. Cover for Int Pierre-Dr Rosado. Objective Last Vital Signs Date Time Temp Pulse Resp B/P (MAP) Pulse Ox O2 Delivery O2 Flow Rate FiO2 07/09/18 12:00 98.1 71 22 101/60 (74) 98 07/09/18 09:42 Room Air 21 07/09/18 09:00 2.0 Microbiology Date/Time Source Procedure Growth Status 07/08/18 12:36 Blood Blood Culture - Preliminary Resulted 07/08/18 12:36 Blood Blood Culture - Preliminary Resulted 07/08/18 12:41 Nasal Nares Influenza Types A,B Antigen (NIA) - Final Complete Intake and Output 07/08/18 07/09/18 19:00 07:00 Intake Total 3050 ml 800 ml Output Total 600 ml 1100 ml Balance 2450 ml -300 ml Intake Oral 400 ml 800 ml IV Total 2650 ml Output Urine Total 600 ml 1100 ml # Voids 1 # Bowel Movements 1 2 Objective PHYSICAL EXAMINATION: GENERAL: The patient is awake and responsive, in no acute distress. HEAD AND NECK: Pupils are equal and reactive to light. Extraocular movements are intact in the right eye. 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 Neck was supple. No JVD. LUNGS: Good air entry. No wheezing or rales. HEART: S1 and S2. Distant heart sounds. No gallops. ABDOMEN: Soft, nontender, and nontender. Suprapubic catheter was noted. EXTREMITIES: No cyanosis or clubbing. Bilateral lower extremity +2 edema. NEUROLOGIC: Cranial nerves II through XII grossly intact. Motor is 5/5 in all extremities. Gait was not assessed due to the patient's status. Assessment/Plan Assessment/Plan ASSESSMENT: 1. GRAM NEG RODS; Sepsis secondary to catheter associated urinary tract infection, present on admission. Await ID and sensitivity. Continue meropenem per ID 2. Hypertension. 3. Dyslipidemia. 4. Diabetes type 1 with prior history of diabetic ketoacidosis. 5. Diabetic retinopathy of the left eye blindness. 6. End-stage renal disease secondary to diabetic nephrosclerosis. 7. Coronary artery disease with prior history of myocardial infarction. 8. 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 9. 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 10. Secondary hyperparathyroidism with vitamin D deficiency. 11. Anemia of chronic kidney disease. 12. Metabolic acidosis. 13. Depression with prior suicide attempt. PLAN: 1. Admit the patient to telemetry. 2. Code status is DNR/DNI as per POLST in the chart. 3. Resume jail medications. 4. Follow up with culture. 5. Broad spectrum antibiotic with meropenem. 6. DVT prophylaxis, heparin subcutaneous. 7. We will follow up with Dr. Chambers from Nephrology and Dr. Rich Wick from Infectious Disease. 8. We will follow up with the cultures and laboratory in the morning. 9. Accu-Chek with sliding scale. Jose Glasgow MD Jul 09, 2018 14:52
[2018-07-09 15:15] LABS: HEMATOCRIT 30.7 % (42.0-52.0); HEMOGLOBIN 9.6 G/DL (14.2-18.0); MEAN CORPUSCULAR VOLUME 97 FL (80-99); PLATELET COUNT 223 K/UL (150-450); RED BLOOD COUNT 3.17 M/UL (4.70-6.10); RED CELL DISTRIBUTION WIDTH 15.9 % (11.6-14.8); WHITE BLOOD COUNT 10.7 K/UL (4.8-10.8)
--- NOTE | 2018-07-09 15:15 | Consultation ---
DATE OF CONSULTATION: 07/09/2018 INFECTIOUS DISEASES CONSULTATION CONSULTING PHYSICIAN: Rich Wick M.D. REFERRING PHYSICIAN: Christopher Rosado M.D. REASON FOR CONSULTATION: Evaluation of the patient for sepsis, UTI, and antibiotic management. HISTORY OF PRESENT ILLNESS: The patient is a 63-year-old, well known to our service from prior admission, who was admitted to this medical center for fever, chills, nausea, and vomiting. The patient was found to have normal white count and T-max of 103 at the time of admission. The patient's blood culture is growing gram-negative consuelo. Infectious Diseases consultation has been requested for further evaluation of the patient and antibiotic management. PAST MEDICAL HISTORY: 1. History of multiple recurrent UTIs. 2. History of suprapubic catheter. 3. Hypertension. 4. Diabetes. 5. Asthma. 6. COPD. 7. History of renal/pancreatic cancer. 8. Anemia. 9. CVA. 10. CKD. 11. BPH. ALLERGIES: Allergic to cefepime (the patient has tolerated carbapenems and clindamycin in the past). MEDICATIONS: Meropenem. FAMILY HISTORY: Not available. REVIEW OF SYSTEMS: The patient is a poor historian. PHYSICAL EXAMINATION: VITAL SIGNS: Temperature 98.1, pulse 86, respiratory rate 18, temperature 103.1. HEENT: No pale conjunctivae. No icterus. NECK: No lymphadenopathy. CHEST: Clear. HEART: S1 and S2. ABDOMEN: Soft. Nontender. Suprapubic catheter in place. NEUROLOGIC: Awake. LABORATORY DATA: White blood cells 7, hemoglobin 11, platelets 246,000. UA, 60-80 white blood cells. BUN is 45, creatinine 6. ALT, AST, alkaline phosphatase is within normal range. Rapid influenza A test and B negative. Blood culture is growing gram-negative rods. ASSESSMENT: The patient is a 63-year-old male with: 1. Bacteremia (gram-negative rods). 2. Probable urinary tract infection. 3. Sepsis. 4. Lactic acidosis. 5. Normal WBC. PLAN: 1. We will start the patient on meropenem. 2. Monitor CBC. 3. Monitor BMP. 4. Monitor cultures (blood, urine). 5. Ultrasound of the abdomen. 6. Based on the patient's clinical course and laboratories, we will do further recommendation. Thank you, Dr. Rosado, for allowing me to participate in the care of this patient. I will follow the patient with you during this hospitalization. Rich Wick M.D. DR: Jes JOB#: [id number] CC:
[2018-07-09 15:26] LABS: AMMONIA 26 umol/L (11-32)
[2018-07-09 15:37] LABS: ALANINE AMINOTRANSFERASE 18 U/L (12-78); ALBUMIN 1.9 G/DL (3.4-5.0); ALBUMIN/GLOBULIN RATIO 0.5 (1.0-2.7); ALKALINE PHOSPHATASE 73 U/L (46-116); ANION GAP 13 mmol/L (5-15); ASPARTATE AMINO TRANSFERASE 21 U/L (15-37); BILIRUBIN,TOTAL 0.5 MG/DL (0.2-1.0); BLOOD UREA NITROGEN 55 mg/dL (7-18); CALCIUM 8.2 MG/DL (8.5-10.1); CARBON DIOXIDE 20 MMOL/L (21-32); CHLORIDE 107 MMOL/L (98-107); CHOLESTEROL 100 MG/DL (< 200); CREATINE KINASE 72 U/L (26-308); CREATININE 6.1 MG/DL (0.55-1.30); FERRITIN 1224 NG/ML (8-388); GAMMA GLUTAMYL TRANSPEPTIDASE 33 U/L (5-85); HDL CHOLESTEROL 44 MG/DL (40-60); SODIUM 139 MMOL/L (136-145); TRIGLYCERIDES 123 MG/DL (30-150)
[2018-07-09 16:00] VITALS: BP 118/63
[2018-07-09 20:00] VITALS: BP 119/61
[2018-07-10] VITALS: BP 118/67
[2018-07-10] MEDS: Sodium Citrate 30ml ORAL SCH ×5 (00:40→23:14)
[2018-07-10 04:00] VITALS: BP 133/71
[2018-07-10] MEDS: NS w/KCl 40mEq 1,000 ML IV SCH ×2 (05:57→15:48)
[2018-07-10] MEDS: Heparin 5000 units/ml inj SUBQ SCH ×3 (05:58→22:00)
[2018-07-10] MEDS: NovoLOG Insulin Flexpen SUBQ SCH ×4 (05:59→23:16)
[2018-07-10] MEDS: Meropenem 500 MG in NS 55 ML IVPB SCH ×2 (08:48→23:15)
[2018-07-10] MEDS: Metoprolol Succinate XL 50mg tab ORAL SCH ×2 (08:48→23:15)
[2018-07-10] MEDS: Docusate 100mg cap ORAL SCH ×2 (08:49→17:24)
[2018-07-10] MEDS: DULoxetine 30mg cap ORAL SCH (08:49)
[2018-07-10] MEDS: Renvela 800mg Pkt ORAL SCH ×3 (08:49→17:23)
[2018-07-10] MEDS: Tamsulosin 0.4mg cap ORAL SCH ×2 (08:49→17:24)
[2018-07-10 09:00] VITALS: BP 135/88
--- NOTE | 2018-07-10 10:55 | Nephrology Progress Note ---
Assessment/Plan Problem List: (1) CKD (chronic kidney disease), stage IV (2) HTN (hypertension) (3) UTI (urinary tract infection) (4) Encephalopathy Assessment Sepsis Pneumonia HypoKalemia encephalopathy Anemia in chronic kidney disease Acute on chronic renal failure Psychiatric disturbance Acidosis, metabolic UTI (urinary tract infection) Encephalopathy h/o Recurrent hematuria history of recurrent UTI Suprapubic catheter Neurogenic bladder BPH Status post renal pancreatic transplant h/o Elevated lipase Diabetes mellitus type 2 with hx of DKA Hypertension now low BP COPD/asthma Coronary artery disease with history of NSTEMI major depressive disorder with history of suicidal attempt Plan 07/09 labs reviewed patient offered dialysis is considering adjust BP meds- Hydrate- slow PO Bicitra mag and KCL as needed BS check and adjustment antibiotics watch Hgb Gastric support patient DNR monitor renal parameters avoid nephrotoxics no dialysis in the past Subjective ROS Limited/Unobtainable: No Constitutional: Reports: other - more responsive Objective Objective Last 24 Hour Vital Signs Date Time Temp Pulse Resp B/P (MAP) Pulse Ox O2 Delivery O2 Flow Rate FiO2 07/10/18 09:00 Nasal Cannula 2.0 07/10/18 09:00 97.2 82 18 135/88 (104) 96 07/10/18 08:48 77 135/85 07/10/18 08:48 77 135/85 07/10/18 08:00 83 07/10/18 04:00 98.0 74 19 133/71 (91) 97 07/10/18 04:00 76 07/10/18 02:02 Nasal Cannula 2.0 28 07/10/18 02:02 97 Nasal Cannula 2.0 28 07/10/18 00:00 98.0 64 18 118/67 (84) 97 07/10/18 00:00 72 07/09/18 21:46 97 Nasal Cannula 2.0 28 07/09/18 21:46 Nasal Cannula 2.0 28 07/09/18 21:08 70 119/61 07/09/18 21:00 Nasal Cannula 2.0 07/09/18 20:00 98.2 70 18 119/61 (80) 98 07/09/18 20:00 72 07/09/18 17:20 70 118/63 07/09/18 16:00 98.4 69 22 118/63 (81) 98 07/09/18 16:00 70 07/09/18 12:00 98.1 71 22 101/60 (74) 98 07/09/18 12:00 74 Intake and Output 07/09/18 07/10/18 19:00 07:00 Intake Total 580 ml Output Total 1700 ml 600 ml Balance -1120 ml -600 ml Intake Oral 220 ml Other 360 ml Output Urine Total 1700 ml 600 ml # Voids 1 1 # Bowel Movements 2 Laboratory Tests 07/09/18 14:45: White Blood Count 10.7#, Red Blood Count 3.17L, Hemoglobin 9.6L, Hematocrit 30.7L, Mean Corpuscular Volume 97, Mean Corpuscular Hemoglobin 30.3, Mean Corpuscular Hemoglobin Concent 31.3L, Red Cell Distribution Width 15.9H, Platelet Count 223, Mean Platelet Volume 5.6L, Neutrophils (%) (Auto) , Lymphocytes (%) (Auto) , Monocytes (%) (Auto) , Eosinophils (%) (Auto) , Basophils (%) (Auto) , Differential Total Cells Counted 100, Neutrophils % ( Manual) 81H, Lymphocytes % (Manual) 7L, Monocytes % (Manual) 4, Eosinophils % ( Manual) 1, Basophils % (Manual) 0, Band Neutrophils 7, Platelet Estimate Adequate, Platelet Morphology Normal, Hypochromasia 1+, Anisocytosis 1+, Sodium Level 139, Potassium Level 4.0, Chloride Level 107, Carbon Dioxide Level 20L, Anion Gap 13, Blood Urea Nitrogen 55H, Creatinine 6.1H, Estimat Glomerular Filtration Rate 9.3, Glucose Level 134H, Hemoglobin A1c 5.3, Lactic Acid Level 1.20, Uric Acid 6.7, Calcium Level 8.2L, Phosphorus Level 5.0H, Magnesium Level 1.5L, Ferritin 1224H, Total Bilirubin 0.5, Gamma Glutamyl Transpeptidase 33, Aspartate Amino Transf (AST/SGOT) 21, Alanine Aminotransferase (ALT/SGPT) 18, Alkaline Phosphatase 73, Ammonia 26, Total Creatine Kinase 72, Troponin I 0.044 , Pro-B-Type Natriuretic Peptide 10692S, Total Protein 5.7L, Albumin 1.9L, Globulin 3.8, Albumin/Globulin Ratio 0.5L, Triglycerides Level 123, Cholesterol Level 100, LDL Cholesterol 46, HDL Cholesterol 44, Cholesterol/HDL Ratio 2.3L, Lipase 106, Vitamin B12 Level 769, Folate 81.5H, Thyroid Stimulating Hormone ( TSH) 1.897 Height (Feet): 5 Height (Inches): 10.00 Weight (Pounds): 180 General Appearance: no apparent distress Cardiovascular: other - variable Respiratory/Chest: decreased breath sounds Abdomen: soft Objective no change Luis Chambers MD Jul 10, 2018 10:55
[2018-07-10 11:51] VITALS: BP 132/72
--- NOTE | 2018-07-10 15:28 | Internal Med Progress Note ---
Subjective Date of Service: Jul 10, 2018 Physician Name Jose Glasgow Attending Physician Christopher Rosado MD Current Medications Medications (Trade) Dose Ordered Sig/Dunia Route PRN Reason Start Time Stop Time Status Last Admin Dose Admin Acetaminophen (Tylenol) 650 mg Q6H PRN ORAL Mild Pain/Temp > 100.5 07/09/18 09:15 08/08/18 09:14 Albuterol/ Ipratropium (Albuterol/ Ipratropium) 3 ml Q4H PRN HHN Shortness of Breath 07/09/18 09:15 07/14/18 09:14 07/09/18 09:38 Amlodipine Besylate (Norvasc) 5 mg BID ORAL 07/08/18 18:00 08/08/18 08:59 07/10/18 08:48 Atorvastatin Calcium (Lipitor) 10 mg BEDTIME ORAL 07/08/18 21:00 08/07/18 20:59 07/09/18 21:08 Clonidine HCl (Catapres Tab) 0.1 mg Q4H PRN ORAL bp over 160 syst 07/08/18 16:30 08/07/18 16:29 Dextrose (Dextrose 50%) 25 ml Q30M PRN IV Hypoglycemia 07/08/18 18:00 08/07/18 17:59 Dextrose (Dextrose 50%) 50 ml Q30M PRN IV Hypoglycemia 07/08/18 18:00 08/07/18 17:59 Docusate Sodium (Colace) 100 mg TWICE A DAY ORAL 07/08/18 18:00 08/07/18 17:59 07/10/18 08:49 Duloxetine HCl (Cymbalta) 30 mg DAILY ORAL 07/09/18 09:00 08/08/18 08:59 07/10/18 08:49 Heparin Sodium (Porcine) (Heparin 5000 units/ml) 5,000 units EVERY 8 HOURS SUBQ 07/08/18 22:00 08/07/18 21:59 07/10/18 05:58 Insulin Aspart (NovoLOG) BEFORE MEALS AND HS SUBQ 07/08/18 21:00 08/07/18 20:59 07/10/18 12:16 Meropenem 500 mg/ Sodium Chloride 55 ml @ 110 mls/hr EVERY 12 HOURS IVPB 07/08/18 21:00 07/13/18 20:59 07/10/18 08:48 Metoprolol Succinate (Toprol XL) 50 mg Q12HR ORAL 07/08/18 21:00 08/07/18 20:59 07/10/18 08:48 Ondansetron HCl (Zofran) 4 mg Q6H PRN IVP Nausea & Vomiting 07/08/18 18:00 08/07/18 17:59 Pantoprazole (Protonix) 40 mg BID ORAL 07/08/18 18:00 08/07/18 16:29 07/10/18 08:49 Sevelamer Carbonate (Renvela) 800 mg THREE TIMES A DAY ORAL 07/08/18 18:00 08/07/18 17:59 07/10/18 12:09 Sodium Chloride 1,000 ml @ 100 mls/hr Q10H IV 07/08/18 13:30 08/07/18 13:29 07/10/18 05:57 Sodium Citrate (Bicitra) 30 ml EVERY 6 HOURS ORAL 07/08/18 18:00 08/07/18 17:59 07/10/18 12:09 Tamsulosin HCl (Flomax) 0.4 mg BID ORAL 07/08/18 18:00 08/07/18 17:59 07/10/18 08:49 Allergies: Coded Allergies: CEFEPIME (Verified Allergy, Intermediate, Rash, 03/01/18) Tolerates Carbapenem ROS Limited/Unobtainable: No Constitutional: Reports: no symptoms HEENT: Reports: no symptoms Cardiovascular: Reports: no symptoms Respiratory: Reports: no symptoms Gastrointestinal/Abdominal: Reports: no symptoms Genitourinary: Reports: no symptoms Neurologic/Psychiatric: Reports: no symptoms Subjective 63 YO M admitted with dehydration and hypotension. Now sepsis. Cover for Int Pierre-Dr Rosado. Objective Last Vital Signs Date Time Temp Pulse Resp B/P (MAP) Pulse Ox O2 Delivery O2 Flow Rate FiO2 07/10/18 12:00 78 07/10/18 11:51 97.9 18 132/72 (92) 96 07/10/18 09:00 Nasal Cannula 2.0 07/10/18 02:02 28 Microbiology Date/Time Source Procedure Growth Status 07/08/18 12:36 Blood Blood Culture - Preliminary Gram Negative Bacillus 1 Gram Negative Bacillus 2 Resulted 07/08/18 12:36 Blood Blood Culture - Preliminary Gram Negative Bacillus 1 Resulted 07/08/18 13:46 Nasal Nares MRSA Culture - Final Staphylococcus Aureus - Mrsa Complete 07/08/18 12:41 Nasal Nares Influenza Types A,B Antigen (NIA) - Final Complete 07/08/18 13:31 Urine,Clean Catch Urine Culture - Preliminary Gram Negative Bacillus 1 Resulted 07/08/18 13:46 Rectum VRE Culture - Final Enterococcus Faecalis - Vre Enterococcus Faecium - Vre Resulted 07/08/18 13:46 Rectum Pending Resulted Intake and Output 07/09/18 07/10/18 19:00 07:00 Intake Total 580 ml Output Total 1700 ml 600 ml Balance -1120 ml -600 ml Intake Oral 220 ml Other 360 ml Output Urine Total 1700 ml 600 ml # Voids 1 1 # Bowel Movements 2 Objective PHYSICAL EXAMINATION: GENERAL: The patient is awake and responsive, in no acute distress. HEAD AND NECK: Pupils are equal and reactive to light. Extraocular movements are intact in the right eye. 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 Neck was supple. No JVD. LUNGS: Good air entry. No wheezing or rales. HEART: S1 and S2. Distant heart sounds. No gallops. ABDOMEN: Soft, nontender, and nontender. Suprapubic catheter was noted. EXTREMITIES: No cyanosis or clubbing. Bilateral lower extremity +2 edema. NEUROLOGIC: Cranial nerves II through XII grossly intact. Motor is 5/5 in all extremities. Gait was not assessed due to the patient's status. Assessment/Plan Assessment/Plan ASSESSMENT: 1. GRAM NEG RODS; Sepsis secondary to catheter associated urinary tract infection, present on admission. Await ID and sensitivity. Continue meropenem per ID 2. Hypertension. 3. Dyslipidemia. 4. Diabetes type 1 with prior history of diabetic ketoacidosis. 5. Diabetic retinopathy of the left eye blindness. 6. End-stage renal disease secondary to diabetic nephrosclerosis. 7. Coronary artery disease with prior history of myocardial infarction. 8. 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 9. 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 10. Secondary hyperparathyroidism with vitamin D deficiency. 11. Anemia of chronic kidney disease. 12. Metabolic acidosis. 13. Depression with prior suicide attempt. PLAN: 1. Admit the patient to telemetry. 2. Code status is DNR/DNI as per POLST in the chart. 3. Resume alf medications. 4. Follow up with culture. 5. Broad spectrum antibiotic with meropenem. 6. DVT prophylaxis, heparin subcutaneous. 7. We will follow up with Dr. Chambers from Nephrology and Dr. Rich Wick from Infectious Disease. 8. We will follow up with the cultures and laboratory in the morning. 9. Accu-Chek with sliding scale. Jose Glasgow MD Jul 10, 2018 15:28
[2018-07-10 16:02] VITALS: BP 111/59
[2018-07-10 17:27] LABS: BASOPHILS % (AUTO) 0.2 % (0.0-2.0); EOSINOPHILS % (AUTO) 7.2 % (0.0-3.0); HEMATOCRIT 28.6 % (42.0-52.0); HEMOGLOBIN 9.6 G/DL (14.2-18.0); LYMPHOCYTES % (AUTO) 6.2 % (20.0-45.0); MEAN CORPUSCULAR VOLUME 95 FL (80-99); MONOCYTES % (AUTO) 3.7 % (1.0-10.0); NEUTROPHILS % (AUTO) 82.8 % (45.0-75.0); PLATELET COUNT 226 K/UL (150-450); RED BLOOD COUNT 3.02 M/UL (4.70-6.10); RED CELL DISTRIBUTION WIDTH 15.5 % (11.6-14.8); WHITE BLOOD COUNT 13.5 K/UL (4.8-10.8)
[2018-07-10 17:38] LABS: ALANINE AMINOTRANSFERASE 20 U/L (12-78); ALBUMIN 1.9 G/DL (3.4-5.0); ALBUMIN/GLOBULIN RATIO 0.5 (1.0-2.7); ALKALINE PHOSPHATASE 88 U/L (46-116); ANION GAP 13 mmol/L (5-15); ASPARTATE AMINO TRANSFERASE 20 U/L (15-37); BILIRUBIN,TOTAL 0.4 MG/DL (0.2-1.0); BLOOD UREA NITROGEN 57 mg/dL (7-18); CARBON DIOXIDE 17 MMOL/L (21-32); CHLORIDE 107 MMOL/L (98-107); CREATININE 6.3 MG/DL (0.55-1.30); POTASSIUM 4.7 MMOL/L (3.5-5.1); SODIUM 137 MMOL/L (136-145)
--- NOTE | 2018-07-10 18:04 | General Progress Note ---
Assessment/Plan Problem List: (1) Major depressive disorder ICD Codes: F32.9 - Major depressive disorder, single episode, unspecified SNOMED: 780181643 Status: stable Assessment/Plan cont Cymbalta 30mg qam the Wellbutrin was recently dced provided ro/st Subjective Date patient seen: Jul 09, 2018 Allergies: Coded Allergies: CEFEPIME (Verified Allergy, Intermediate, Rash, 03/01/18) Tolerates Carbapenem Subjective the pt was in position the pt was low energy and stated that he wanted to be left alone he has hypersomnia no si Objective Last 24 Hour Vital Signs Date Time Temp Pulse Resp B/P (MAP) Pulse Ox O2 Delivery O2 Flow Rate FiO2 07/10/18 17:24 70 111/59 07/10/18 16:02 98.1 70 20 111/59 (76) 96 07/10/18 12:00 78 07/10/18 11:51 97.9 79 18 132/72 (92) 96 07/10/18 09:00 Nasal Cannula 2.0 07/10/18 09:00 97.2 82 18 135/88 (104) 96 07/10/18 08:48 77 135/85 07/10/18 08:48 77 135/85 07/10/18 08:00 83 07/10/18 04:00 98.0 74 19 133/71 (91) 97 07/10/18 04:00 76 07/10/18 02:02 Nasal Cannula 2.0 28 07/10/18 02:02 97 Nasal Cannula 2.0 28 07/10/18 00:00 98.0 64 18 118/67 (84) 97 07/10/18 00:00 72 07/09/18 21:46 97 Nasal Cannula 2.0 28 07/09/18 21:46 Nasal Cannula 2.0 28 07/09/18 21:08 70 119/61 07/09/18 21:00 Nasal Cannula 2.0 07/09/18 20:00 98.2 70 18 119/61 (80) 98 07/09/18 20:00 72 Intake and Output 07/09/18 07/10/18 19:00 07:00 Intake Total 580 ml Output Total 1700 ml 600 ml Balance -1120 ml -600 ml Intake Oral 220 ml Other 360 ml Output Urine Total 1700 ml 600 ml # Voids 1 1 # Bowel Movements 2 Laboratory Tests 07/10/18 16:50: White Blood Count 13.5H, Red Blood Count 3.02L, Hemoglobin 9.6L, Hematocrit 28.6L, Mean Corpuscular Volume 95, Mean Corpuscular Hemoglobin 31.9H, Mean Corpuscular Hemoglobin Concent 33.7, Red Cell Distribution Width 15.5H, Platelet Count 226, Mean Platelet Volume 6.2L, Neutrophils (%) (Auto) 82.8H, Lymphocytes (%) (Auto) 6.2L, Monocytes (%) (Auto) 3.7, Eosinophils (%) (Auto) 7.2H, Basophils (%) (Auto) 0.2, Sodium Level 137, Potassium Level 4.7, Chloride Level 107, Carbon Dioxide Level 17L, Anion Gap 13, Blood Urea Nitrogen 57H, Creatinine 6.3H, Estimat Glomerular Filtration Rate 9.0, Glucose Level 184H, Calcium Level 8.0L, Total Bilirubin 0.4, Aspartate Amino Transf (AST/SGOT) 20, Alanine Aminotransferase (ALT/SGPT) 20, Alkaline Phosphatase 88, Total Protein 5.7L, Albumin 1.9L, Globulin 3.8, Albumin/Globulin Ratio 0.5L Height (Feet): 5 Height (Inches): 10.00 Weight (Pounds): 180 General Appearance: no apparent distress, alert, overweight Neurologic: oriented x 3, responsive, depressed affect Fatmata Lu MD Jul 10, 2018 18:04
[2018-07-10 20:00] VITALS: BP 121/66
[2018-07-11] VITALS: BP 128/65
[2018-07-11] MEDS: NS w/KCl 40mEq 1,000 ML IV SCH ×2 (00:22→12:43)
[2018-07-11 04:00] VITALS: BP 115/58
[2018-07-11] MEDS: Sodium Citrate 30ml ORAL SCH ×3 (06:00→17:28)
[2018-07-11] MEDS: Heparin 5000 units/ml inj SUBQ SCH ×3 (06:00→21:35)
--- NOTE | 2018-07-11 07:33 | Infectious Diseases Prog Note ---
Assessment/Plan Assessment/Plan The patient is a 63-year-old male with: Urosepsis - Bacteremia (gram-negative rods). 07/08/18 UCx - GNR urinary tract infection. 07/08/18 BCx Proteus and K. pneumo Sepsis. Fever, Leukocytosis PLAN: - Continue meropenem #3/. - Monitor CBC. - Monitor BMP. - f/u UCx - Ultrasound of the abdomen. - Monitor Rash - Uremia? I will follow the patient with you during this hospitalization. Subjective Allergies: Coded Allergies: CEFEPIME (Verified Allergy, Intermediate, Rash, 03/01/18) Tolerates Carbapenem Subjective Patient now afebrile Leukocytosis increasing Urine Cx pending still. Objective Vital Signs Last 24 Hour Vital Signs Date Time Temp Pulse Resp B/P (MAP) Pulse Ox O2 Delivery O2 Flow Rate FiO2 07/11/18 04:00 67 07/11/18 04:00 98.4 70 18 115/58 (77) 95 07/11/18 00:00 73 07/11/18 00:00 97.7 73 18 128/65 (86) 95 07/10/18 23:15 67 121/66 07/10/18 21:00 Nasal Cannula 2.0 07/10/18 20:00 67 07/10/18 20:00 98.5 73 18 121/66 (84) 94 07/10/18 17:24 70 111/59 07/10/18 16:02 98.1 70 20 111/59 (76) 96 07/10/18 16:00 71 07/10/18 12:00 78 07/10/18 11:51 97.9 79 18 132/72 (92) 96 07/10/18 09:00 Nasal Cannula 2.0 07/10/18 09:00 97.2 82 18 135/88 (104) 96 07/10/18 08:48 77 135/85 07/10/18 08:48 77 135/85 07/10/18 08:00 83 Height (Feet): 5 Height (Inches): 10.00 Weight (Pounds): 180 Objective GEN: NAD HEENT: NCATT,. No icterus. CHEST: CTAB, No W. HEART: RRR, S1 and S2. ABDOMEN: Soft. Nontender. Suprapubic catheter in place. NEUROLOGIC: Awake. Skin: Rash on arms Microbiology Date/Time Source Procedure Growth Status 07/08/18 12:36 Blood Blood Culture - Preliminary Klebsiella Pneumoniae Proteus Mirabilis Resulted 07/08/18 12:36 Blood Blood Culture - Preliminary Proteus Mirabilis Resulted 07/08/18 13:46 Nasal Nares MRSA Culture - Final Staphylococcus Aureus - Mrsa Complete 07/08/18 12:41 Nasal Nares Influenza Types A,B Antigen (NIA) - Final Complete 07/08/18 13:31 Urine,Clean Catch Urine Culture - Preliminary Gram Negative Bacillus 1 Resulted 07/08/18 13:46 Rectum VRE Culture - Final Enterococcus Faecalis - Vre Enterococcus Faecium - Vre Resulted 07/08/18 13:46 Rectum Pending Resulted Laboratory Tests Test 07/10/18 16:50 White Blood Count 13.5 K/UL (4.8-10.8) H Red Blood Count 3.02 M/UL (4.70-6.10) L Hemoglobin 9.6 G/DL (14.2-18.0) L Hematocrit 28.6 % (42.0-52.0) L Mean Corpuscular Volume 95 FL (80-99) Mean Corpuscular Hemoglobin 31.9 PG (27.0-31.0) H Mean Corpuscular Hemoglobin Concent 33.7 G/DL (32.0-36.0) Red Cell Distribution Width 15.5 % (11.6-14.8) H Platelet Count 226 K/UL (150-450) Mean Platelet Volume 6.2 FL (6.5-10.1) L Neutrophils (%) (Auto) 82.8 % (45.0-75.0) H Lymphocytes (%) (Auto) 6.2 % (20.0-45.0) L Monocytes (%) (Auto) 3.7 % (1.0-10.0) Eosinophils (%) (Auto) 7.2 % (0.0-3.0) H Basophils (%) (Auto) 0.2 % (0.0-2.0) Sodium Level 137 MMOL/L (136-145) Potassium Level 4.7 MMOL/L (3.5-5.1) Chloride Level 107 MMOL/L (98-107) Carbon Dioxide Level 17 MMOL/L (21-32) L Anion Gap 13 mmol/L (5-15) Blood Urea Nitrogen 57 mg/dL (7-18) H Creatinine 6.3 MG/DL (0.55-1.30) H Estimat Glomerular Filtration Rate 9.0 mL/min (>60) Glucose Level 184 MG/DL (74-106) H Calcium Level 8.0 MG/DL (8.5-10.1) L Total Bilirubin 0.4 MG/DL (0.2-1.0) Aspartate Amino Transf (AST/SGOT) 20 U/L (15-37) Alanine Aminotransferase (ALT/SGPT) 20 U/L (12-78) Alkaline Phosphatase 88 U/L (46-116) Total Protein 5.7 G/DL (6.4-8.2) L Albumin 1.9 G/DL (3.4-5.0) L Globulin 3.8 g/dL Albumin/Globulin Ratio 0.5 (1.0-2.7) L Current Medications Medications (Trade) Dose Ordered Sig/Dunia Route PRN Reason Start Time Stop Time Status Last Admin Dose Admin Acetaminophen (Tylenol) 650 mg Q6H PRN ORAL Mild Pain/Temp > 100.5 07/09/18 09:15 08/08/18 09:14 Albuterol/ Ipratropium (Albuterol/ Ipratropium) 3 ml Q4H PRN HHN Shortness of Breath 07/09/18 09:15 07/14/18 09:14 07/09/18 09:38 Amlodipine Besylate (Norvasc) 5 mg BID ORAL 07/08/18 18:00 08/08/18 08:59 07/10/18 17:24 Atorvastatin Calcium (Lipitor) 10 mg BEDTIME ORAL 07/08/18 21:00 08/07/18 20:59 07/10/18 23:14 Clonidine HCl (Catapres Tab) 0.1 mg Q4H PRN ORAL bp over 160 syst 07/08/18 16:30 08/07/18 16:29 Dextrose (Dextrose 50%) 25 ml Q30M PRN IV Hypoglycemia 07/08/18 18:00 08/07/18 17:59 Dextrose (Dextrose 50%) 50 ml Q30M PRN IV Hypoglycemia 07/08/18 18:00 08/07/18 17:59 Docusate Sodium (Colace) 100 mg TWICE A DAY ORAL 07/08/18 18:00 08/07/18 17:59 07/10/18 17:24 Duloxetine HCl (Cymbalta) 30 mg DAILY ORAL 07/09/18 09:00 08/08/18 08:59 07/10/18 08:49 Heparin Sodium (Porcine) (Heparin 5000 units/ml) 5,000 units EVERY 8 HOURS SUBQ 07/08/18 22:00 08/07/18 21:59 07/10/18 05:58 Insulin Aspart (NovoLOG) BEFORE MEALS AND HS SUBQ 07/08/18 21:00 08/07/18 20:59 07/10/18 23:16 Meropenem 500 mg/ Sodium Chloride 55 ml @ 110 mls/hr EVERY 12 HOURS IVPB 07/08/18 21:00 07/13/18 20:59 07/10/18 23:15 Metoprolol Succinate (Toprol XL) 50 mg Q12HR ORAL 07/08/18 21:00 08/07/18 20:59 07/10/18 23:15 Ondansetron HCl (Zofran) 4 mg Q6H PRN IVP Nausea & Vomiting 07/08/18 18:00 08/07/18 17:59 Pantoprazole (Protonix) 40 mg BID ORAL 07/08/18 18:00 08/07/18 16:29 07/10/18 17:23 Sevelamer Carbonate (Renvela) 800 mg THREE TIMES A DAY ORAL 07/08/18 18:00 08/07/18 17:59 07/10/18 17:23 Sodium Chloride 1,000 ml @ 100 mls/hr Q10H IV 07/08/18 13:30 08/07/18 13:29 07/10/18 15:48 Sodium Citrate (Bicitra) 30 ml EVERY 6 HOURS ORAL 07/08/18 18:00 08/07/18 17:59 07/10/18 23:14 Tamsulosin HCl (Flomax) 0.4 mg BID ORAL 07/08/18 18:00 08/07/18 17:59 07/10/18 17:24 William Caputo MD Jul 11, 2018 07:33
[2018-07-11] MEDS: NovoLOG Insulin Flexpen SUBQ SCH ×4 (07:54→21:35)
[2018-07-11 08:00] VITALS: BP 114/76
[2018-07-11] MEDS: Metoprolol Succinate XL 50mg tab ORAL SCH ×2 (09:00→21:33)
[2018-07-11] MEDS: Renvela 800mg Pkt ORAL SCH ×3 (10:22→17:28)
[2018-07-11] MEDS: DULoxetine 30mg cap ORAL SCH (10:22)
[2018-07-11] MEDS: Docusate 100mg cap ORAL SCH ×2 (10:22→17:37)
[2018-07-11] MEDS: Tamsulosin 0.4mg cap ORAL SCH ×2 (10:22→17:28)
[2018-07-11] MEDS: Meropenem 500 MG in NS 55 ML IVPB SCH ×2 (10:23→21:31)
[2018-07-11 10:39] LABS: BASOPHILS % (AUTO) 0.2 % (0.0-2.0); EOSINOPHILS % (AUTO) 8.7 % (0.0-3.0); HEMATOCRIT 31.9 % (42.0-52.0); HEMOGLOBIN 10.2 G/DL (14.2-18.0); LYMPHOCYTES % (AUTO) 8.1 % (20.0-45.0); MEAN CORPUSCULAR VOLUME 97 FL (80-99); MONOCYTES % (AUTO) 3.3 % (1.0-10.0); NEUTROPHILS % (AUTO) 79.7 % (45.0-75.0); PLATELET COUNT 258 K/UL (150-450); RED BLOOD COUNT 3.27 M/UL (4.70-6.10); RED CELL DISTRIBUTION WIDTH 16.2 % (11.6-14.8); WHITE BLOOD COUNT 11.2 K/UL (4.8-10.8)
[2018-07-11 11:05] LABS: ALANINE AMINOTRANSFERASE 21 U/L (12-78); ALBUMIN 2.2 G/DL (3.4-5.0); ALBUMIN/GLOBULIN RATIO 0.5 (1.0-2.7); ALKALINE PHOSPHATASE 95 U/L (46-116); ANION GAP 18 mmol/L (5-15); ASPARTATE AMINO TRANSFERASE 16 U/L (15-37); BILIRUBIN,TOTAL 0.5 MG/DL (0.2-1.0); BLOOD UREA NITROGEN 59 mg/dL (7-18); CALCIUM 8.6 MG/DL (8.5-10.1); CARBON DIOXIDE 14 MMOL/L (21-32); CHLORIDE 107 MMOL/L (98-107); CREATININE 6.5 MG/DL (0.55-1.30); PHOSPHORUS 4.9 MG/DL (2.5-4.9); POTASSIUM 4.5 MMOL/L (3.5-5.1); SODIUM 139 MMOL/L (136-145)
[2018-07-11 12:00] VITALS: BP 127/67
--- NOTE | 2018-07-11 14:48 | Nephrology Progress Note ---
Assessment/Plan Problem List: (1) CKD (chronic kidney disease), stage IV (2) HTN (hypertension) (3) UTI (urinary tract infection) (4) Encephalopathy Assessment Sepsis Pneumonia HypoKalemia encephalopathy Anemia in chronic kidney disease Acute on chronic renal failure Cr rising Psychiatric disturbance Acidosis, metabolic UTI (urinary tract infection) Encephalopathy h/o Recurrent hematuria history of recurrent UTI Suprapubic catheter Neurogenic bladder BPH Status post renal pancreatic transplant h/o Elevated lipase Diabetes mellitus type 2 with hx of DKA Hypertension now low BP COPD/asthma Coronary artery disease with history of NSTEMI major depressive disorder with history of suicidal attempt Plan Cr rising patient offered dialysis is considering adjust BP meds- Hydrate- slow add bicarb to IV PO Bicitra mag and KCL as needed BS check and adjustment antibiotics watch Hgb Gastric support patient DNR monitor renal parameters avoid nephrotoxics no dialysis in the past Subjective ROS Limited/Unobtainable: No Constitutional: Reports: malaise, weakness Objective Objective Last 24 Hour Vital Signs Date Time Temp Pulse Resp B/P (MAP) Pulse Ox O2 Delivery O2 Flow Rate FiO2 07/11/18 12:00 97.3 75 20 127/67 (87) 97 07/11/18 12:00 74 07/11/18 10:22 71 114/76 07/11/18 09:00 Nasal Cannula 2.0 07/11/18 09:00 71 114/76 07/11/18 08:00 71 18 Nasal Cannula 2.0 28 07/11/18 08:00 79 07/11/18 08:00 96 Nasal Cannula 2.0 28 07/11/18 08:00 98.7 79 20 114/76 (89) 94 07/11/18 08:00 Nasal Cannula 2.0 28 07/11/18 04:00 67 07/11/18 04:00 98.4 70 18 115/58 (77) 95 07/11/18 00:00 73 07/11/18 00:00 97.7 73 18 128/65 (86) 95 07/10/18 23:15 67 121/66 07/10/18 21:00 Nasal Cannula 2.0 07/10/18 20:00 67 07/10/18 20:00 98.5 73 18 121/66 (84) 94 07/10/18 17:24 70 111/59 12/30/18 16:02 98.1 70 20 111/59 (76) 96 07/10/18 16:00 71 Intake and Output 07/10/18 07/11/18 19:00 07:00 Intake Total 360 ml 100 ml Output Total 700 ml Balance -340 ml 100 ml Intake Oral 360 ml IV Total 100 ml Output Urine Total 700 ml # Bowel Movements 1 Laboratory Tests 07/10/18 16:50: White Blood Count 13.5H, Red Blood Count 3.02L, Hemoglobin 9.6L, Hematocrit 28.6L, Mean Corpuscular Volume 95, Mean Corpuscular Hemoglobin 31.9H, Mean Corpuscular Hemoglobin Concent 33.7, Red Cell Distribution Width 15.5H, Platelet Count 226, Mean Platelet Volume 6.2L, Neutrophils (%) (Auto) 82.8H, Lymphocytes (%) (Auto) 6.2L, Monocytes (%) (Auto) 3.7, Eosinophils (%) (Auto) 7.2H, Basophils (%) (Auto) 0.2, Sodium Level 137, Potassium Level 4.7, Chloride Level 107, Carbon Dioxide Level 17L, Anion Gap 13, Blood Urea Nitrogen 57H, Creatinine 6.3H, Estimat Glomerular Filtration Rate 9.0, Glucose Level 184H, Calcium Level 8.0L, Total Bilirubin 0.4, Aspartate Amino Transf (AST/SGOT) 20, Alanine Aminotransferase (ALT/SGPT) 20, Alkaline Phosphatase 88, Total Protein 5.7L, Albumin 1.9L, Globulin 3.8, Albumin/Globulin Ratio 0.5L 07/11/18 09:45: White Blood Count 11.2H, Red Blood Count 3.27L, Hemoglobin 10.2L, Hematocrit 31.9L, Mean Corpuscular Volume 97, Mean Corpuscular Hemoglobin 31.3H, Mean Corpuscular Hemoglobin Concent 32.1, Red Cell Distribution Width 16.2H, Platelet Count 258, Mean Platelet Volume 6.2L, Neutrophils (%) (Auto) 79.7H, Lymphocytes (%) (Auto) 8.1L, Monocytes (%) (Auto) 3.3, Eosinophils (%) (Auto) 8.7H, Basophils (%) (Auto) 0.2, Sodium Level 139, Potassium Level 4.5, Chloride Level 107, Carbon Dioxide Level 14L, Anion Gap 18H, Blood Urea Nitrogen 59H, Creatinine 6.5H, Estimat Glomerular Filtration Rate 8.7, Glucose Level 205H, Calcium Level 8.6, Total Bilirubin 0.5, Aspartate Amino Transf (AST/SGOT) 16, Alanine Aminotransferase (ALT/SGPT) 21, Alkaline Phosphatase 95, Total Protein 6.4, Albumin 2.2L, Globulin 4.2, Albumin/Globulin Ratio 0.5L, Prothrombin Time 10.8, Prothromb Time International Ratio 1.0, Activated Partial Thromboplast Time 36H, Uric Acid 7.8H, Phosphorus Level 4.9, Magnesium Level 1.7L, C- Reactive Protein, Quantitative 10.3H, Pro-B-Type Natriuretic Peptide 12495O Height (Feet): 5 Height (Inches): 10.00 Weight (Pounds): 180 General Appearance: no apparent distress Cardiovascular: normal rate Respiratory/Chest: decreased breath sounds Abdomen: soft Objective no change Luis Chambers MD Jul 11, 2018 14:48
--- NOTE | 2018-07-11 15:33 | Internal Med Progress Note ---
Subjective Date of Service: Jul 11, 2018 Physician Name Jose Glasgow Attending Physician Christopher Rosado MD Current Medications Medications (Trade) Dose Ordered Sig/Dunia Route PRN Reason Start Time Stop Time Status Last Admin Dose Admin Acetaminophen (Tylenol) 650 mg Q6H PRN ORAL Mild Pain/Temp > 100.5 07/09/18 09:15 08/08/18 09:14 Albuterol/ Ipratropium (Albuterol/ Ipratropium) 3 ml Q4H PRN HHN Shortness of Breath 07/09/18 09:15 07/14/18 09:14 07/09/18 09:38 Amlodipine Besylate (Norvasc) 5 mg BID ORAL 07/08/18 18:00 08/08/18 08:59 07/11/18 10:22 Atorvastatin Calcium (Lipitor) 10 mg BEDTIME ORAL 07/08/18 21:00 08/07/18 20:59 07/10/18 23:14 Clonidine HCl (Catapres Tab) 0.1 mg Q4H PRN ORAL bp over 160 syst 07/08/18 16:30 08/07/18 16:29 Dextrose (Dextrose 50%) 25 ml Q30M PRN IV Hypoglycemia 07/08/18 18:00 08/07/18 17:59 Dextrose (Dextrose 50%) 50 ml Q30M PRN IV Hypoglycemia 07/08/18 18:00 08/07/18 17:59 Docusate Sodium (Colace) 100 mg TWICE A DAY ORAL 07/08/18 18:00 08/07/18 17:59 07/11/18 10:22 Duloxetine HCl (Cymbalta) 30 mg DAILY ORAL 07/09/18 09:00 08/08/18 08:59 07/11/18 10:22 Heparin Sodium (Porcine) (Heparin 5000 units/ml) 5,000 units EVERY 8 HOURS SUBQ 07/08/18 22:00 08/07/18 21:59 07/10/18 05:58 Insulin Aspart (NovoLOG) BEFORE MEALS AND HS SUBQ 07/08/18 21:00 08/07/18 20:59 07/11/18 12:45 Meropenem 500 mg/ Sodium Chloride 55 ml @ 110 mls/hr EVERY 12 HOURS IVPB 07/08/18 21:00 07/13/18 20:59 07/11/18 10:23 Metoprolol Succinate (Toprol XL) 50 mg Q12HR ORAL 07/08/18 21:00 08/07/18 20:59 07/10/18 23:15 Ondansetron HCl (Zofran) 4 mg Q6H PRN IVP Nausea & Vomiting 07/08/18 18:00 08/07/18 17:59 Pantoprazole (Protonix) 40 mg BID ORAL 07/08/18 18:00 08/07/18 16:29 07/11/18 10:25 Sevelamer Carbonate (Renvela) 800 mg THREE TIMES A DAY ORAL 07/08/18 18:00 08/07/18 17:59 07/11/18 12:43 Sodium Bicarbonate 50 ml/ Sodium Chloride 1,050 ml @ 75 mls/hr Q14H IV 07/11/18 16:00 08/10/18 15:59 Sodium Citrate (Bicitra) 30 ml EVERY 6 HOURS ORAL 07/08/18 18:00 08/07/18 17:59 07/11/18 12:42 Tamsulosin HCl (Flomax) 0.4 mg BID ORAL 07/08/18 18:00 08/07/18 17:59 07/11/18 10:22 Allergies: Coded Allergies: CEFEPIME (Verified Allergy, Intermediate, Rash, 03/01/18) Tolerates Carbapenem ROS Limited/Unobtainable: No Constitutional: Reports: no symptoms HEENT: Reports: no symptoms Cardiovascular: Reports: no symptoms Respiratory: Reports: no symptoms Gastrointestinal/Abdominal: Reports: no symptoms Genitourinary: Reports: no symptoms Neurologic/Psychiatric: Reports: no symptoms Subjective 63 YO M admitted with dehydration and hypotension. Now sepsis and urinary tract inf. Cover for Int Pierre-Dr Rosado. Objective Last Vital Signs Date Time Temp Pulse Resp B/P (MAP) Pulse Ox O2 Delivery O2 Flow Rate FiO2 07/11/18 12:00 97.3 75 20 127/67 (87) 97 07/11/18 09:00 Nasal Cannula 2.0 07/11/18 08:00 28 Laboratory Tests Test 07/10/18 16:50 07/11/18 09:45 White Blood Count 13.5 K/UL (4.8-10.8) H 11.2 K/UL (4.8-10.8) H Red Blood Count 3.02 M/UL (4.70-6.10) L 3.27 M/UL (4.70-6.10) L Hemoglobin 9.6 G/DL (14.2-18.0) L 10.2 G/DL (14.2-18.0) L Hematocrit 28.6 % (42.0-52.0) L 31.9 % (42.0-52.0) L Mean Corpuscular Volume 95 FL (80-99) 97 FL (80-99) Mean Corpuscular Hemoglobin 31.9 PG (27.0-31.0) H 31.3 PG (27.0-31.0) H Mean Corpuscular Hemoglobin Concent 33.7 G/DL (32.0-36.0) 32.1 G/DL (32.0-36.0) Red Cell Distribution Width 15.5 % (11.6-14.8) H 16.2 % (11.6-14.8) H Platelet Count 226 K/UL (150-450) 258 K/UL (150-450) Mean Platelet Volume 6.2 FL (6.5-10.1) L 6.2 FL (6.5-10.1) L Neutrophils (%) (Auto) 82.8 % (45.0-75.0) H 79.7 % (45.0-75.0) H Lymphocytes (%) (Auto) 6.2 % (20.0-45.0) L 8.1 % (20.0-45.0) L Monocytes (%) (Auto) 3.7 % (1.0-10.0) 3.3 % (1.0-10.0) Eosinophils (%) (Auto) 7.2 % (0.0-3.0) H 8.7 % (0.0-3.0) H Basophils (%) (Auto) 0.2 % (0.0-2.0) 0.2 % (0.0-2.0) Sodium Level 137 MMOL/L (136-145) 139 MMOL/L (136-145) Potassium Level 4.7 MMOL/L (3.5-5.1) 4.5 MMOL/L (3.5-5.1) Chloride Level 107 MMOL/L (98-107) 107 MMOL/L (98-107) Carbon Dioxide Level 17 MMOL/L (21-32) L 14 MMOL/L (21-32) L Anion Gap 13 mmol/L (5-15) 18 mmol/L (5-15) H Blood Urea Nitrogen 57 mg/dL (7-18) H 59 mg/dL (7-18) H Creatinine 6.3 MG/DL (0.55-1.30) H 6.5 MG/DL (0.55-1.30) H Estimat Glomerular Filtration Rate 9.0 mL/min (>60) 8.7 mL/min (>60) Glucose Level 184 MG/DL (74-106) H 205 MG/DL (74-106) H Calcium Level 8.0 MG/DL (8.5-10.1) L 8.6 MG/DL (8.5-10.1) Total Bilirubin 0.4 MG/DL (0.2-1.0) 0.5 MG/DL (0.2-1.0) Aspartate Amino Transf (AST/SGOT) 20 U/L (15-37) 16 U/L (15-37) Alanine Aminotransferase (ALT/SGPT) 20 U/L (12-78) 21 U/L (12-78) Alkaline Phosphatase 88 U/L (46-116) 95 U/L (46-116) Total Protein 5.7 G/DL (6.4-8.2) L 6.4 G/DL (6.4-8.2) Albumin 1.9 G/DL (3.4-5.0) L 2.2 G/DL (3.4-5.0) L Globulin 3.8 g/dL 4.2 g/dL Albumin/Globulin Ratio 0.5 (1.0-2.7) L 0.5 (1.0-2.7) L Prothrombin Time 10.8 SEC (9.30-11.50) Prothromb Time International Ratio 1.0 (0.9-1.1) Activated Partial Thromboplast Time 36 SEC (23-33) H Uric Acid 7.8 MG/DL (2.6-7.2) H Phosphorus Level 4.9 MG/DL (2.5-4.9) Magnesium Level 1.7 MG/DL (1.8-2.4) L C-Reactive Protein, Quantitative 10.3 mg/dL (0.00-0.90) H Pro-B-Type Natriuretic Peptide 86241 pg/mL (0-125) H Intake and Output 07/10/18 07/11/18 19:00 07:00 Intake Total 360 ml 100 ml Output Total 700 ml Balance -340 ml 100 ml Intake Oral 360 ml IV Total 100 ml Output Urine Total 700 ml # Bowel Movements 1 Objective PHYSICAL EXAMINATION: GENERAL: The patient is awake and responsive, in no acute distress. HEAD AND NECK: Pupils are equal and reactive to light. Extraocular movements are intact in the right eye. 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 Neck was supple. No JVD. LUNGS: Good air entry. No wheezing or rales. HEART: S1 and S2. Distant heart sounds. No gallops. ABDOMEN: Soft, nontender, and nontender. Suprapubic catheter was noted. EXTREMITIES: No cyanosis or clubbing. Bilateral lower extremity +2 edema. NEUROLOGIC: Cranial nerves II through XII grossly intact. Motor is 5/5 in all extremities. Gait was not assessed due to the patient's status. Assessment/Plan Assessment/Plan ASSESSMENT: 1. Sepsis(Proteus and klebsiella) secondary to catheter associated urinary tract infection (providencia), present on admission. Continue meropenem per ID 2. Hypertension. 3. Dyslipidemia. 4. Diabetes type 1 with prior history of diabetic ketoacidosis. 5. Diabetic retinopathy of the left eye blindness. 6. End-stage renal disease secondary to diabetic nephrosclerosis. 7. Coronary artery disease with prior history of myocardial infarction. 8. 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 9. 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 10. Secondary hyperparathyroidism with vitamin D deficiency. 11. Anemia of chronic kidney disease. 12. Metabolic acidosis. 13. Depression with prior suicide attempt. PLAN: 1. Admit the patient to telemetry. 2. Code status is DNR/DNI as per POLST in the chart. 3. Resume detention medications. 4. Follow up with culture. 5. Broad spectrum antibiotic with meropenem. 6. DVT prophylaxis, heparin subcutaneous. 7. We will follow up with Dr. Chambers from Nephrology and Dr. Rich Wick from Infectious Disease. 8. We will follow up with the cultures and laboratory in the morning. 9. Accu-Chek with sliding scale. Jose Glasgow MD Jul 11, 2018 15:33
[2018-07-11 16:00] VITALS: BP 118/56
[2018-07-11] MEDS: Sodium Bicarbonate 50 ML in NS 1000ml 1,000 ML IV SCH (17:54)
[2018-07-11 20:00] VITALS: BP 125/61
[2018-07-12] VITALS: BP 136/72
[2018-07-12] MEDS: Sodium Citrate 30ml ORAL SCH ×4 (00:39→17:09)
--- NOTE | 2018-07-12 01:51 | General Progress Note ---
Assessment/Plan Problem List: (1) Major depressive disorder ICD Codes: F32.9 - Major depressive disorder, single episode, unspecified SNOMED: 974005461 Assessment/Plan cont Cymbalta 30mg qam the Wellbutrin was recently dced provided ro/st Subjective Date patient seen: Jul 11, 2018 Neurologic/Psychiatric: Reports: anxiety, depressed, emotional problems Allergies: Coded Allergies: CEFEPIME (Verified Allergy, Intermediate, Rash, 03/01/18) Tolerates Carbapenem Subjective the pt was low energy and stated that he wanted to be left alone he has hypersomnia no si Objective Last 24 Hour Vital Signs Date Time Temp Pulse Resp B/P (MAP) Pulse Ox O2 Delivery O2 Flow Rate FiO2 07/11/18 21:33 79 125/61 07/11/18 19:30 74 18 Nasal Cannula 2.0 28 07/11/18 17:28 76 118/56 07/11/18 16:00 77 07/11/18 16:00 97.8 76 20 118/56 (76) 96 07/11/18 12:00 97.3 75 20 127/67 (87) 97 07/11/18 12:00 74 07/11/18 10:22 71 114/76 07/11/18 09:00 Nasal Cannula 2.0 07/11/18 09:00 71 114/76 07/11/18 08:00 71 18 Nasal Cannula 2.0 28 07/11/18 08:00 79 07/11/18 08:00 96 Nasal Cannula 2.0 28 07/11/18 08:00 98.7 79 20 114/76 (89) 94 07/11/18 08:00 Nasal Cannula 2.0 28 07/11/18 04:00 67 07/11/18 04:00 98.4 70 18 115/58 (77) 95 Intake and Output 07/11/18 07/12/18 19:00 07:00 Intake Total 1190 ml Output Total 1350 ml Balance -160 ml Intake Oral 390 ml IV Total 800 ml Output Urine Total 1350 ml Laboratory Tests 07/11/18 09:45: White Blood Count 11.2H, Red Blood Count 3.27L, Hemoglobin 10.2L, Hematocrit 31.9L, Mean Corpuscular Volume 97, Mean Corpuscular Hemoglobin 31.3H, Mean Corpuscular Hemoglobin Concent 32.1, Red Cell Distribution Width 16.2H, Platelet Count 258, Mean Platelet Volume 6.2L, Neutrophils (%) (Auto) 79.7H, Lymphocytes (%) (Auto) 8.1L, Monocytes (%) (Auto) 3.3, Eosinophils (%) (Auto) 8.7H, Basophils (%) (Auto) 0.2, Prothrombin Time 10.8, Prothromb Time International Ratio 1.0, Activated Partial Thromboplast Time 36H, Sodium Level 139, Potassium Level 4.5, Chloride Level 107, Carbon Dioxide Level 14L, Anion Gap 18H, Blood Urea Nitrogen 59H, Creatinine 6.5H, Estimat Glomerular Filtration Rate 8.7, Glucose Level 205H, Uric Acid 7.8H, Calcium Level 8.6, Phosphorus Level 4.9, Magnesium Level 1.7L, Total Bilirubin 0.5, Aspartate Amino Transf (AST/SGOT) 16, Alanine Aminotransferase (ALT/SGPT) 21, Alkaline Phosphatase 95, C-Reactive Protein, Quantitative 10.3H, Pro-B-Type Natriuretic Peptide 60322F, Total Protein 6.4, Albumin 2.2L, Globulin 4.2, Albumin/Globulin Ratio 0.5L Height (Feet): 5 Height (Inches): 10.00 Weight (Pounds): 180 General Appearance: no apparent distress, alert, overweight Neurologic: oriented x 3, responsive, depressed affect Fatmata Lu MD Jul 12, 2018 01:51
[2018-07-12 04:00] VITALS: BP 125/71
[2018-07-12] MEDS: Heparin 5000 units/ml inj SUBQ SCH ×3 (06:15→21:07)
[2018-07-12] MEDS: NovoLOG Insulin Flexpen SUBQ SCH ×4 (06:25→21:04)
[2018-07-12] MEDS: Sodium Bicarbonate 50 ML in NS 1000ml 1,000 ML IV SCH ×2 (06:52→17:09)
[2018-07-12 08:00] VITALS: BP 148/74
[2018-07-12] MEDS: Docusate 100mg cap ORAL SCH ×2 (09:00→17:08)
[2018-07-12] MEDS: Meropenem 500 MG in NS 55 ML IVPB SCH ×2 (09:10→21:04)
[2018-07-12] MEDS: Renvela 800mg Pkt ORAL SCH ×3 (09:10→17:09)
[2018-07-12] MEDS: DULoxetine 30mg cap ORAL SCH (09:10)
[2018-07-12] MEDS: Tamsulosin 0.4mg cap ORAL SCH ×2 (09:10→17:09)
[2018-07-12] MEDS: Metoprolol Succinate XL 50mg tab ORAL SCH ×2 (09:11→21:02)
--- NOTE | 2018-07-12 11:50 | Internal Med Progress Note ---
Subjective Date of Service: Jul 12, 2018 Physician Name Jose Glasgow Attending Physician Christopher Rosado MD Current Medications Medications (Trade) Dose Ordered Sig/Dunia Route PRN Reason Start Time Stop Time Status Last Admin Dose Admin Acetaminophen (Tylenol) 650 mg Q6H PRN ORAL Mild Pain/Temp > 100.5 07/09/18 09:15 08/08/18 09:14 Albuterol/ Ipratropium (Albuterol/ Ipratropium) 3 ml Q4H PRN HHN Shortness of Breath 07/09/18 09:15 07/14/18 09:14 07/09/18 09:38 Amlodipine Besylate (Norvasc) 5 mg BID ORAL 07/08/18 18:00 08/08/18 08:59 07/12/18 09:11 Atorvastatin Calcium (Lipitor) 10 mg BEDTIME ORAL 07/08/18 21:00 08/07/18 20:59 07/11/18 21:32 Clonidine HCl (Catapres Tab) 0.1 mg Q4H PRN ORAL bp over 160 syst 07/08/18 16:30 08/07/18 16:29 Dextrose (Dextrose 50%) 25 ml Q30M PRN IV Hypoglycemia 07/08/18 18:00 08/07/18 17:59 Dextrose (Dextrose 50%) 50 ml Q30M PRN IV Hypoglycemia 07/08/18 18:00 08/07/18 17:59 Docusate Sodium (Colace) 100 mg TWICE A DAY ORAL 07/08/18 18:00 08/07/18 17:59 07/11/18 10:22 Duloxetine HCl (Cymbalta) 30 mg DAILY ORAL 07/09/18 09:00 08/08/18 08:59 07/12/18 09:10 Heparin Sodium (Porcine) (Heparin 5000 units/ml) 5,000 units EVERY 8 HOURS SUBQ 07/08/18 22:00 08/07/18 21:59 07/12/18 06:15 Insulin Aspart (NovoLOG) BEFORE MEALS AND HS SUBQ 07/08/18 21:00 08/07/18 20:59 07/12/18 06:25 Meropenem 500 mg/ Sodium Chloride 55 ml @ 110 mls/hr EVERY 12 HOURS IVPB 07/08/18 21:00 07/13/18 20:59 07/12/18 09:10 Metoprolol Succinate (Toprol XL) 50 mg Q12HR ORAL 07/08/18 21:00 08/07/18 20:59 07/12/18 09:11 Ondansetron HCl (Zofran) 4 mg Q6H PRN IVP Nausea & Vomiting 07/08/18 18:00 08/07/18 17:59 Pantoprazole (Protonix) 40 mg BID ORAL 07/08/18 18:00 08/07/18 16:29 07/12/18 09:10 Sevelamer Carbonate (Renvela) 800 mg THREE TIMES A DAY ORAL 07/08/18 18:00 08/07/18 17:59 07/12/18 09:10 Sodium Bicarbonate 50 ml/ Sodium Chloride 1,050 ml @ 75 mls/hr Q14H IV 07/11/18 16:00 08/10/18 15:59 07/12/18 06:52 Sodium Citrate (Bicitra) 30 ml EVERY 6 HOURS ORAL 07/08/18 18:00 08/07/18 17:59 07/12/18 06:14 Tamsulosin HCl (Flomax) 0.4 mg BID ORAL 07/08/18 18:00 08/07/18 17:59 07/12/18 09:10 Allergies: Coded Allergies: CEFEPIME (Verified Allergy, Intermediate, Rash, 03/01/18) Tolerates Carbapenem ROS Limited/Unobtainable: No Constitutional: Reports: no symptoms HEENT: Reports: no symptoms Cardiovascular: Reports: no symptoms Respiratory: Reports: no symptoms Gastrointestinal/Abdominal: Reports: no symptoms Genitourinary: Reports: no symptoms Neurologic/Psychiatric: Reports: no symptoms Subjective 63 YO M admitted with dehydration and hypotension. Now sepsis and urinary tract infection. Cover for Int Pierre-Dr Rosado. Objective Last Vital Signs Date Time Temp Pulse Resp B/P (MAP) Pulse Ox O2 Delivery O2 Flow Rate FiO2 07/12/18 09:11 76 148/74 07/12/18 09:00 Nasal Cannula 2.0 07/12/18 08:00 97.7 20 96 07/11/18 19:30 28 Intake and Output 07/11/18 07/12/18 18:59 06:59 Intake Total 1290 ml Output Total 1350 ml 1000 ml Balance -60 ml -1000 ml Intake Oral 390 ml IV Total 900 ml Output Urine Total 1350 ml 1000 ml Objective PHYSICAL EXAMINATION: GENERAL: The patient is awake and responsive, in no acute distress. HEAD AND NECK: Pupils are equal and reactive to light. Extraocular movements are intact in the right eye. 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 Neck was supple. No JVD. LUNGS: Good air entry. No wheezing or rales. HEART: S1 and S2. Distant heart sounds. No gallops. ABDOMEN: Soft, nontender, and nontender. Suprapubic catheter was noted. EXTREMITIES: No cyanosis or clubbing. Bilateral lower extremity +2 edema. NEUROLOGIC: Cranial nerves II through XII grossly intact. Motor is 5/5 in all extremities. Gait was not assessed due to the patient's status. Assessment/Plan Assessment/Plan ASSESSMENT: 1. Sepsis(Proteus-ESBL and klebsiella) secondary to catheter associated urinary tract infection (providencia and pseudamonas-MDR), present on admission. Continue meropenem per ID 2. Hypertension. 3. Dyslipidemia. 4. Diabetes type 1 with prior history of diabetic ketoacidosis. 5. Diabetic retinopathy of the left eye blindness. 6. End-stage renal disease secondary to diabetic nephrosclerosis. 7. Coronary artery disease with prior history of myocardial infarction. 8. 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 9. 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 10. Secondary hyperparathyroidism with vitamin D deficiency. 11. Anemia of chronic kidney disease. 12. Metabolic acidosis. 13. Depression with prior suicide attempt. PLAN: 1. Admit the patient to telemetry. 2. Code status is DNR/DNI as per POLST in the chart. 3. Resume skilled nursing medications. 4. Follow up with culture. 5. Broad spectrum antibiotic with meropenem. 6. DVT prophylaxis, heparin subcutaneous. 7. We will follow up with Dr. Chambers from Nephrology and Dr. Rich Wick from Infectious Disease. 8. We will follow up with the cultures and laboratory in the morning. 9. Accu-Chek with sliding scale. Jose Glasgow MD Jul 12, 2018 11:50
[2018-07-12 12:00] VITALS: BP 121/60
--- NOTE | 2018-07-12 13:24 | Nephrology Progress Note ---
Assessment/Plan Problem List: (1) CKD (chronic kidney disease), stage IV (2) HTN (hypertension) (3) UTI (urinary tract infection) (4) Encephalopathy Assessment Sepsis Pneumonia HypoKalemia encephalopathy Anemia in chronic kidney disease Acute on chronic renal failure Cr rising Psychiatric disturbance Acidosis, metabolic UTI (urinary tract infection) Encephalopathy h/o Recurrent hematuria history of recurrent UTI Suprapubic catheter Neurogenic bladder BPH Status post renal pancreatic transplant h/o Elevated lipase Diabetes mellitus type 2 with hx of DKA Hypertension now low BP COPD/asthma Coronary artery disease with history of NSTEMI major depressive disorder with history of suicidal attempt Plan today's lab pending Cr rising patient offered dialysis is considering adjust BP meds- Hydrate- slow add bicarb to IV PO Bicitra mag and KCL as needed BS check and adjustment antibiotics watch Hgb Gastric support patient DNR monitor renal parameters avoid nephrotoxics no dialysis in the past Subjective ROS Limited/Unobtainable: No Constitutional: Reports: malaise Objective Objective Last 24 Hour Vital Signs Date Time Temp Pulse Resp B/P (MAP) Pulse Ox O2 Delivery O2 Flow Rate FiO2 07/12/18 12:00 82 07/12/18 12:00 97.8 82 20 121/60 (80) 95 07/12/18 09:11 76 148/74 07/12/18 09:11 76 148/74 07/12/18 09:00 Nasal Cannula 2.0 07/12/18 08:00 97.7 76 20 148/74 (98) 96 07/12/18 08:00 87 07/12/18 04:00 98.3 76 18 125/71 (89) 94 07/12/18 04:00 74 07/12/18 00:00 77 07/12/18 00:00 98.5 80 18 136/72 (93) 96 07/11/18 21:33 79 125/61 07/11/18 21:00 Nasal Cannula 2.0 07/11/18 20:00 98.1 79 18 125/61 (82) 96 07/11/18 20:00 84 07/11/18 19:30 74 18 Nasal Cannula 2.0 28 07/11/18 17:28 76 118/56 07/11/18 16:00 77 07/11/18 16:00 97.8 76 20 118/56 (76) 96 Intake and Output 07/11/18 07/12/18 18:59 06:59 Intake Total 1290 ml Output Total 1350 ml 1000 ml Balance -60 ml -1000 ml Intake Oral 390 ml IV Total 900 ml Output Urine Total 1350 ml 1000 ml Laboratory Tests 07/12/18 12:20: White Blood Count [Pending], Red Blood Count [Pending], Hemoglobin [Pending], Hematocrit [Pending], Mean Corpuscular Volume [Pending], Mean Corpuscular Hemoglobin [Pending], Mean Corpuscular Hemoglobin Concent [Pending], Red Cell Distribution Width [Pending], Platelet Count [Pending], Mean Platelet Volume [ Pending], Neutrophils (%) (Auto) [Pending], Lymphocytes (%) (Auto) [Pending], Monocytes (%) (Auto) [Pending], Eosinophils (%) (Auto) [Pending], Basophils (%) (Auto) [Pending] Height (Feet): 5 Height (Inches): 10.00 Weight (Pounds): 180 General Appearance: no apparent distress Cardiovascular: normal rate Respiratory/Chest: decreased breath sounds Abdomen: distended Genitourinary/Rectal: other - supra pubic Objective no change Luis Chambers MD Jul 12, 2018 13:24
[2018-07-12 13:33] LABS: BASOPHILS % (AUTO) 0.4 % (0.0-2.0); HEMATOCRIT 28.1 % (42.0-52.0); HEMOGLOBIN 8.8 G/DL (14.2-18.0); LYMPHOCYTES % (AUTO) 18.5 % (20.0-45.0); MEAN CORPUSCULAR VOLUME 99 FL (80-99); MONOCYTES % (AUTO) 3.5 % (1.0-10.0); NEUTROPHILS % (AUTO) 68.6 % (45.0-75.0); PLATELET COUNT 188 K/UL (150-450); RED BLOOD COUNT 2.83 M/UL (4.70-6.10); RED CELL DISTRIBUTION WIDTH 15.6 % (11.6-14.8); WHITE BLOOD COUNT 8.4 K/UL (4.8-10.8)
[2018-07-12 16:00] VITALS: BP 109/54
[2018-07-12] MEDS ORDERED: Albuterol/Ipratropium 3ml neb HHN PRN (16:09)
[2018-07-12 20:02] VITALS: BP 128/61
[2018-07-13 04:00] VITALS: BP 140/67
[2018-07-13] MEDS: Sodium Citrate 30ml ORAL SCH ×4 (06:00→17:59)
[2018-07-13] MEDS: Sodium Bicarbonate 50 ML in NS 1000ml 1,000 ML IV SCH ×2 (06:13→14:22)
[2018-07-13] MEDS: NovoLOG Insulin Flexpen SUBQ SCH ×4 (06:15→20:49)
[2018-07-13] MEDS: Heparin 5000 units/ml inj SUBQ SCH ×3 (06:17→20:48)
[2018-07-13 08:00] VITALS: BP 114/57
[2018-07-13] MEDS: Metoprolol Succinate XL 50mg tab ORAL SCH ×2 (09:00→20:48)
--- NOTE | 2018-07-13 09:37 | Infectious Diseases Prog Note ---
Assessment/Plan Assessment/Plan The patient is a 63-year-old male with: Urosepsis - Bacteremia (gram-negative rods). 07/08/18 UCx - P.a. MDR and Proteus - Patient clincally improving on Meropenem. No P.a. in the blood so I am not treating this specifically and am considering it a colonizer at this point 07/08/18 BCx Proteus and K. pneumo Sepsis. Fever, Leukocytosis PLAN: - Continue meropenem #/. - Monitor CBC. - Monitor BMP. - Monitor Rash I will follow the patient with you during this hospitalization. Subjective Allergies: Coded Allergies: CEFEPIME (Verified Allergy, Intermediate, Rash, 03/01/18) Tolerates Carbapenem Subjective Patient now afebrile Leukocytosis resolving Says he feels fine Objective Vital Signs Last 24 Hour Vital Signs Date Time Temp Pulse Resp B/P (MAP) Pulse Ox O2 Delivery O2 Flow Rate FiO2 07/13/18 04:00 97.5 71 17 140/67 (91) 96 07/12/18 21:02 79 128/61 07/12/18 20:27 Nasal Cannula 2.0 07/12/18 20:22 79 18 Nasal Cannula 2.0 28 07/12/18 20:02 97.5 64 16 128/61 (83) 95 07/12/18 16:46 74 109/54 07/12/18 16:00 98.1 74 20 109/54 (72) 95 07/12/18 12:00 82 07/12/18 12:00 97.8 82 20 121/60 (80) 95 Height (Feet): 5 Height (Inches): 10.00 Weight (Pounds): 180 Objective GEN: NAD, laying in bed HEENT: NCATT,. No icterus. CHEST: CTAB, No W. HEART: RRR, S1 and S2. ABDOMEN: Soft. Nontender. Suprapubic catheter in place. NEUROLOGIC: Awake. Skin: Rash on arms Laboratory Tests Test 07/12/18 12:20 White Blood Count 8.4 K/UL (4.8-10.8) Red Blood Count 2.83 M/UL (4.70-6.10) L Hemoglobin 8.8 G/DL (14.2-18.0) L Hematocrit 28.1 % (42.0-52.0) L Mean Corpuscular Volume 99 FL (80-99) Mean Corpuscular Hemoglobin 31.1 PG (27.0-31.0) H Mean Corpuscular Hemoglobin Concent 31.4 G/DL (32.0-36.0) L Red Cell Distribution Width 15.6 % (11.6-14.8) H Platelet Count 188 K/UL (150-450) Mean Platelet Volume 6.2 FL (6.5-10.1) L Neutrophils (%) (Auto) 68.6 % (45.0-75.0) Lymphocytes (%) (Auto) 18.5 % (20.0-45.0) L Monocytes (%) (Auto) 3.5 % (1.0-10.0) Eosinophils (%) (Auto) 9.0 % (0.0-3.0) H Basophils (%) (Auto) 0.4 % (0.0-2.0) Current Medications Medications (Trade) Dose Ordered Sig/Dunia Route PRN Reason Start Time Stop Time Status Last Admin Dose Admin Acetaminophen (Tylenol) 650 mg Q6H PRN ORAL Mild Pain/Temp > 100.5 07/12/18 16:08 08/08/18 16:07 Albuterol/ Ipratropium (Albuterol/ Ipratropium) 3 ml Q4H PRN HHN Shortness of Breath 07/12/18 16:09 07/14/18 16:08 Amlodipine Besylate (Norvasc) 5 mg BID ORAL 07/12/18 18:00 08/08/18 08:59 Atorvastatin Calcium (Lipitor) 10 mg BEDTIME ORAL 07/12/18 21:00 08/07/18 20:59 07/12/18 21:02 Clonidine HCl (Catapres Tab) 0.1 mg Q4H PRN ORAL bp over 160 syst 07/12/18 16:08 08/07/18 16:07 Dextrose (Dextrose 50%) 25 ml Q30M PRN IV Hypoglycemia 07/12/18 16:09 08/07/18 16:08 Dextrose (Dextrose 50%) 50 ml Q30M PRN IV Hypoglycemia 07/12/18 16:09 08/07/18 16:08 Docusate Sodium (Colace) 100 mg TWICE A DAY ORAL 07/12/18 18:00 08/07/18 17:59 07/12/18 17:08 Duloxetine HCl (Cymbalta) 30 mg DAILY ORAL 07/13/18 09:00 08/08/18 08:59 Heparin Sodium (Porcine) (Heparin 5000 units/ml) 5,000 units EVERY 8 HOURS SUBQ 07/12/18 22:00 08/07/18 21:59 07/13/18 06:17 Insulin Aspart (NovoLOG) BEFORE MEALS AND HS SUBQ 07/12/18 16:30 08/07/18 20:59 07/13/18 06:15 Meropenem 500 mg/ Sodium Chloride 55 ml @ 110 mls/hr EVERY 12 HOURS IVPB 07/12/18 21:00 07/13/18 20:59 07/12/18 21:04 Metoprolol Succinate (Toprol XL) 50 mg Q12HR ORAL 07/12/18 21:00 08/07/18 20:59 07/12/18 21:02 Ondansetron HCl (Zofran) 4 mg Q6H PRN IVP Nausea & Vomiting 07/12/18 16:09 08/07/18 16:08 Pantoprazole (Protonix) 40 mg BID ORAL 07/12/18 18:00 08/07/18 16:29 07/12/18 17:09 Sevelamer Carbonate (Renvela) 800 mg THREE TIMES A DAY ORAL 07/12/18 18:00 08/07/18 17:59 07/12/18 17:09 Sodium Bicarbonate 50 ml/ Sodium Chloride 1,050 ml @ 75 mls/hr Q14H IV 07/12/18 16:13 08/10/18 16:12 07/12/18 17:09 Sodium Citrate (Bicitra) 30 ml EVERY 6 HOURS ORAL 07/12/18 18:00 08/07/18 17:59 07/12/18 17:09 Tamsulosin HCl (Flomax) 0.4 mg BID ORAL 07/12/18 18:00 08/07/18 17:59 07/12/18 17:09 William Caputo MD Jul 13, 2018 09:37
[2018-07-13 10:18] LABS: PHOSPHORUS 4.5 MG/DL (2.5-4.9)
[2018-07-13 10:24] LABS: ALANINE AMINOTRANSFERASE 14 U/L (12-78); ALBUMIN 2.1 G/DL (3.4-5.0); ALBUMIN/GLOBULIN RATIO 0.6 (1.0-2.7); ALKALINE PHOSPHATASE 101 U/L (46-116); ANION GAP 13 mmol/L (5-15); ASPARTATE AMINO TRANSFERASE 14 U/L (15-37); BILIRUBIN,TOTAL 0.4 MG/DL (0.2-1.0); BLOOD UREA NITROGEN 59 mg/dL (7-18); CALCIUM 8.2 MG/DL (8.5-10.1); CARBON DIOXIDE 19 MMOL/L (21-32); CHLORIDE 109 MMOL/L (98-107); CREATININE 6.4 MG/DL (0.55-1.30); POTASSIUM 4.3 MMOL/L (3.5-5.1); SODIUM 141 MMOL/L (136-145)
[2018-07-13] MEDS: Meropenem 500 MG in NS 55 ML IVPB SCH ×2 (10:44→20:47)
[2018-07-13] MEDS: Docusate 100mg cap ORAL SCH ×2 (10:44→17:59)
[2018-07-13] MEDS: DULoxetine 30mg cap ORAL SCH (10:44)
[2018-07-13] MEDS: Tamsulosin 0.4mg cap ORAL SCH ×2 (10:44→17:59)
[2018-07-13] MEDS: Renvela 800mg Pkt ORAL SCH ×3 (10:45→17:58)
[2018-07-13 12:00] VITALS: BP 97/49
--- NOTE | 2018-07-13 12:36 | General Progress Note ---
Assessment/Plan Problem List: (1) Major depressive disorder ICD Codes: F32.9 - Major depressive disorder, single episode, unspecified SNOMED: [id number] Status: stable, progressing Assessment/Plan cont Cymbalta 30mg qam the Wellbutrin was recently dced provided ro/st Subjective Neurologic/Psychiatric: Reports: anxiety, depressed, emotional problems Allergies: Coded Allergies: CEFEPIME (Verified Allergy, Intermediate, Rash, 03/01/18) Tolerates Carbapenem Subjective the pt cont to be depressed no si he has hypersomnia no si Objective Last 24 Hour Vital Signs Date Time Temp Pulse Resp B/P (MAP) Pulse Ox O2 Delivery O2 Flow Rate FiO2 07/13/18 08:00 97.5 71 20 114/57 (76) 97 07/13/18 04:00 97.5 71 17 140/67 (91) 96 07/12/18 21:02 79 128/61 07/12/18 20:27 Nasal Cannula 2.0 07/12/18 20:22 79 18 Nasal Cannula 2.0 28 07/12/18 20:02 97.5 64 16 128/61 (83) 95 07/12/18 16:46 74 109/54 07/12/18 16:00 98.1 74 20 109/54 (72) 95 Intake and Output 07/12/18 07/13/18 18:59 06:59 Intake Total 1405 ml 955 ml Output Total 1200 ml 1050 ml Balance 205 ml -95 ml Intake Oral 600 ml IV Total 805 ml 955 ml Output Urine Total 1200 ml 1050 ml # Bowel Movements 1 1 Laboratory Tests 07/13/18 09:40: Prothrombin Time 10.8, Prothromb Time International Ratio 1.0, Activated Partial Thromboplast Time 35H, Sodium Level 141, Potassium Level 4.3, Chloride Level 109H, Carbon Dioxide Level 19L, Anion Gap 13, Blood Urea Nitrogen 59H, Creatinine 6.4H, Estimat Glomerular Filtration Rate 8.8, Glucose Level 200H, Calcium Level 8.2L, Phosphorus Level 4.5, Magnesium Level 1.6L, Total Bilirubin 0.4, Gamma Glutamyl Transpeptidase 32, Aspartate Amino Transf (AST/SGOT) 14L, Alanine Aminotransferase (ALT/SGPT) 14, Alkaline Phosphatase 101, Total Protein 5.6L, Albumin 2.1L, Globulin 3.5, Albumin/Globulin Ratio 0.6L Height (Feet): 5 Height (Inches): 10.00 Weight (Pounds): 180 General Appearance: alert Neurologic: oriented x 3, responsive, depressed affect Fatmata Lu MD Jul 13, 2018 12:36
--- NOTE | 2018-07-13 14:11 | Diagnostic Imaging Report ---
Indication:Abdominal pain Technique: Grayscale and duplex Doppler imaging of the abdomen performed. Comparison: None Findings: Study received for dictation July 13, 2018. The liver is borderline enlarged measuring about 18 cm. No biliary dilatation seen. CBD is 4.5 mm. Gallstones are noted. There is no splenomegaly. Trace free fluid demonstrated. Aorta is unremarkable. Demonstrated pancreas is unremarkable. [place] kidneys are not visualized. There is a transplanted kidney in the left iliac fossa noted measuring 12 cm in length. Few cysts are present. No hydronephrosis demonstrated. Doppler interrogation was performed for the renal transplant in a cursory fashion. Two tracings showing resistive indices at 0.81 and 0.85. This is slightly high, but not comprehensive enough; moreover, there is considerable noise with regard to the Doppler tracing. The study is felt to be nondiagnostic with regard to transplant evaluation. IMPRESSION: No acute findings appreciated. Nonvisualization of [place] kidneys. Transplanted kidney in the left iliac fossa noted. No hydronephrosis or structural abnormalities. Few cysts noted. Doppler evaluation for rejection is nondiagnostic on this exam. Cholelithiasis Borderline hepatomegaly
[2018-07-13 16:00] VITALS: BP 112/65
--- NOTE | 2018-07-13 16:14 | Nephrology Progress Note ---
Assessment/Plan Problem List: (1) CKD (chronic kidney disease), stage IV (2) HTN (hypertension) (3) UTI (urinary tract infection) (4) Encephalopathy Assessment Sepsis Pneumonia HypoKalemia encephalopathy Anemia in chronic kidney disease Acute on chronic renal failure Cr rising Psychiatric disturbance Acidosis, metabolic UTI (urinary tract infection) Encephalopathy h/o Recurrent hematuria history of recurrent UTI Suprapubic catheter Neurogenic bladder BPH Status post renal pancreatic transplant h/o Elevated lipase Diabetes mellitus type 2 with hx of DKA Hypertension now low BP COPD/asthma Coronary artery disease with history of NSTEMI major depressive disorder with history of suicidal attempt Plan Cr unchanged patient offered dialysis REFUSING AGAIN adjust BP meds- Hydrate- slow add bicarb to IV PO Bicitra mag and KCL as needed BS check and adjustment antibiotics watch Hgb Gastric support patient DNR monitor renal parameters avoid nephrotoxics no dialysis in the past Subjective ROS Limited/Unobtainable: No Objective Objective Last 24 Hour Vital Signs Date Time Temp Pulse Resp B/P (MAP) Pulse Ox O2 Delivery O2 Flow Rate FiO2 07/13/18 09:00 71 114/57 07/13/18 09:00 71 114/57 07/13/18 08:00 97.5 71 20 114/57 (76) 97 07/13/18 04:00 97.5 71 17 140/67 (91) 96 07/12/18 21:02 79 128/61 07/12/18 20:27 Nasal Cannula 2.0 07/12/18 20:22 79 18 Nasal Cannula 2.0 28 07/12/18 20:02 97.5 64 16 128/61 (83) 95 07/12/18 16:46 74 109/54 Intake and Output 07/12/18 07/13/18 18:59 06:59 Intake Total 1405 ml 955 ml Output Total 1200 ml 1050 ml Balance 205 ml -95 ml Intake Oral 600 ml IV Total 805 ml 955 ml Output Urine Total 1200 ml 1050 ml # Bowel Movements 1 1 Laboratory Tests 07/13/18 09:40: Prothrombin Time 10.8, Prothromb Time International Ratio 1.0, Activated Partial Thromboplast Time 35H, Sodium Level 141, Potassium Level 4.3, Chloride Level 109H, Carbon Dioxide Level 19L, Anion Gap 13, Blood Urea Nitrogen 59H, Creatinine 6.4H, Estimat Glomerular Filtration Rate 8.8, Glucose Level 200H, Calcium Level 8.2L, Phosphorus Level 4.5, Magnesium Level 1.6L, Total Bilirubin 0.4, Gamma Glutamyl Transpeptidase 32, Aspartate Amino Transf (AST/SGOT) 14L, Alanine Aminotransferase (ALT/SGPT) 14, Alkaline Phosphatase 101, Total Protein 5.6L, Albumin 2.1L, Globulin 3.5, Albumin/Globulin Ratio 0.6L Height (Feet): 5 Height (Inches): 10.00 Weight (Pounds): 180 General Appearance: no apparent distress Cardiovascular: normal rate Respiratory/Chest: decreased breath sounds Abdomen: soft Objective no change Luis Chambers MD Jul 13, 2018 16:14
[2018-07-13] MEDS ORDERED: NS 275ml ONE (16:29)
--- NOTE | 2018-07-13 18:01 | Internal Med Progress Note ---
Subjective Date of Service: Jul 13, 2018 Physician Name Jose Glasgow Attending Physician Christopher Rosado MD Current Medications Medications (Trade) Dose Ordered Sig/Dunia Route PRN Reason Start Time Stop Time Status Last Admin Dose Admin Acetaminophen (Tylenol) 650 mg Q6H PRN ORAL Mild Pain/Temp > 100.5 07/12/18 16:08 08/08/18 16:07 Albuterol/ Ipratropium (Albuterol/ Ipratropium) 3 ml Q4H PRN HHN Shortness of Breath 07/12/18 16:09 07/14/18 16:08 Amlodipine Besylate (Norvasc) 5 mg BID ORAL 07/12/18 18:00 08/08/18 08:59 Atorvastatin Calcium (Lipitor) 10 mg BEDTIME ORAL 07/12/18 21:00 08/07/18 20:59 07/12/18 21:02 Clonidine HCl (Catapres Tab) 0.1 mg Q4H PRN ORAL bp over 160 syst 07/12/18 16:08 08/07/18 16:07 Dextrose (Dextrose 50%) 25 ml Q30M PRN IV Hypoglycemia 07/12/18 16:09 08/07/18 16:08 Dextrose (Dextrose 50%) 50 ml Q30M PRN IV Hypoglycemia 07/12/18 16:09 08/07/18 16:08 Docusate Sodium (Colace) 100 mg TWICE A DAY ORAL 07/12/18 18:00 08/07/18 17:59 07/13/18 10:44 Duloxetine HCl (Cymbalta) 30 mg DAILY ORAL 07/13/18 09:00 08/08/18 08:59 07/13/18 10:44 Heparin Sodium (Porcine) (Heparin 5000 units/ml) 5,000 units EVERY 8 HOURS SUBQ 07/12/18 22:00 08/07/18 21:59 07/13/18 13:18 Insulin Aspart (NovoLOG) BEFORE MEALS AND HS SUBQ 07/12/18 16:30 08/07/18 20:59 07/13/18 13:07 Meropenem 500 mg/ Sodium Chloride 55 ml @ 110 mls/hr EVERY 12 HOURS IVPB 07/12/18 21:00 07/18/18 20:59 07/13/18 10:44 Metoprolol Succinate (Toprol XL) 50 mg Q12HR ORAL 07/12/18 21:00 08/07/18 20:59 07/12/18 21:02 Ondansetron HCl (Zofran) 4 mg Q6H PRN IVP Nausea & Vomiting 07/12/18 16:09 08/07/18 16:08 Pantoprazole (Protonix) 40 mg BID ORAL 07/12/18 18:00 08/07/18 16:29 07/13/18 10:45 Sevelamer Carbonate (Renvela) 800 mg THREE TIMES A DAY ORAL 07/12/18 18:00 08/07/18 17:59 07/13/18 13:10 Sodium Bicarbonate 50 ml/ Sodium Chloride 1,050 ml @ 75 mls/hr Q14H IV 07/12/18 16:13 08/10/18 16:12 07/13/18 14:22 Sodium Citrate (Bicitra) 30 ml EVERY 6 HOURS ORAL 07/12/18 18:00 08/07/18 17:59 07/13/18 13:10 Tamsulosin HCl (Flomax) 0.4 mg BID ORAL 07/12/18 18:00 08/07/18 17:59 07/13/18 10:44 Allergies: Coded Allergies: CEFEPIME (Verified Allergy, Intermediate, Rash, 03/01/18) Tolerates Carbapenem ROS Limited/Unobtainable: No Constitutional: Reports: no symptoms HEENT: Reports: no symptoms Cardiovascular: Reports: no symptoms Respiratory: Reports: no symptoms Gastrointestinal/Abdominal: Reports: no symptoms Genitourinary: Reports: no symptoms Neurologic/Psychiatric: Reports: no symptoms Subjective 63 YO M admitted with dehydration and hypotension. Now sepsis and urinary tract infection. Cover for Int Pierre-Dr Rosado. Objective Last Vital Signs Date Time Temp Pulse Resp B/P (MAP) Pulse Ox O2 Delivery O2 Flow Rate FiO2 07/13/18 17:53 75 112/65 07/13/18 16:00 96.6 24 100 07/13/18 09:00 Nasal Cannula 2.0 07/12/18 20:22 28 Laboratory Tests Test 07/13/18 09:40 Prothrombin Time 10.8 SEC (9.30-11.50) Prothromb Time International Ratio 1.0 (0.9-1.1) Activated Partial Thromboplast Time 35 SEC (23-33) H Sodium Level 141 MMOL/L (136-145) Potassium Level 4.3 MMOL/L (3.5-5.1) Chloride Level 109 MMOL/L (98-107) H Carbon Dioxide Level 19 MMOL/L (21-32) L Anion Gap 13 mmol/L (5-15) Blood Urea Nitrogen 59 mg/dL (7-18) H Creatinine 6.4 MG/DL (0.55-1.30) H Estimat Glomerular Filtration Rate 8.8 mL/min (>60) Glucose Level 200 MG/DL (74-106) H Calcium Level 8.2 MG/DL (8.5-10.1) L Phosphorus Level 4.5 MG/DL (2.5-4.9) Magnesium Level 1.6 MG/DL (1.8-2.4) L Total Bilirubin 0.4 MG/DL (0.2-1.0) Gamma Glutamyl Transpeptidase 32 U/L (5-85) Aspartate Amino Transf (AST/SGOT) 14 U/L (15-37) L Alanine Aminotransferase (ALT/SGPT) 14 U/L (12-78) Alkaline Phosphatase 101 U/L (46-116) Total Protein 5.6 G/DL (6.4-8.2) L Albumin 2.1 G/DL (3.4-5.0) L Globulin 3.5 g/dL Albumin/Globulin Ratio 0.6 (1.0-2.7) L Intake and Output 07/12/18 07/13/18 18:59 06:59 Intake Total 1405 ml 955 ml Output Total 1200 ml 1050 ml Balance 205 ml -95 ml Intake Oral 600 ml IV Total 805 ml 955 ml Output Urine Total 1200 ml 1050 ml # Bowel Movements 1 1 Objective PHYSICAL EXAMINATION: GENERAL: The patient is awake and responsive, in no acute distress. HEAD AND NECK: Pupils are equal and reactive to light. Extraocular movements are intact in the right eye. 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 Neck was supple. No JVD. LUNGS: Good air entry. No wheezing or rales. HEART: S1 and S2. Distant heart sounds. No gallops. ABDOMEN: Soft, nontender, and nontender. Suprapubic catheter was noted. EXTREMITIES: No cyanosis or clubbing. Bilateral lower extremity +2 edema. NEUROLOGIC: Cranial nerves II through XII grossly intact. Motor is 5/5 in all extremities. Gait was not assessed due to the patient's status. Assessment/Plan Assessment/Plan ASSESSMENT: 1. Sepsis(Proteus-ESBL and klebsiella) secondary to catheter associated urinary tract infection (providencia and pseudamonas-MDR), present on admission. Continue meropenem per ID 2. Hypertension. 3. Dyslipidemia. 4. Diabetes type 1 with prior history of diabetic ketoacidosis. 5. Diabetic retinopathy of the left eye blindness. 6. End-stage renal disease secondary to diabetic nephrosclerosis. 7. Coronary artery disease with prior history of myocardial infarction. 8. 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 9. 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 10. Secondary hyperparathyroidism with vitamin D deficiency. 11. Anemia of chronic kidney disease. 12. Metabolic acidosis. 13. Depression with prior suicide attempt. PLAN: 1. Admit the patient to telemetry. 2. Code status is DNR/DNI as per POLST in the chart. 3. Resume long term medications. 4. Follow up with culture. 5. Broad spectrum antibiotic with meropenem. 6. DVT prophylaxis, heparin subcutaneous. 7. We will follow up with Dr. Chambers from Nephrology and Dr. Rich Wick from Infectious Disease. 8. We will follow up with the cultures and laboratory in the morning. 9. Accu-Chek with sliding scale. Jose Glasgow MD Jul 13, 2018 18:01
[2018-07-13 20:00] VITALS: BP 155/81
--- NOTE | 2018-07-13 20:25 | Pulmonology Progress Note ---
Assessment/Plan Problems: (1) Bacteremia (2) Pulmonary HTN (3) Encephalopathy acute (4) Blind left eye (5) Suprapubic catheter (6) Anemia in chronic kidney disease (7) DKA (diabetic ketoacidoses) (8) HTN (hypertension) (9) Major depressive disorder Assessment/Plan iv abx BS still high sliding scale Urology f/u monitor BP dvt prophylaxis psychiatry f/u Subjective ROS Limited/Unobtainable: No Constitutional: Reports: no symptoms HEENT: Repors: no symptoms Respiratory: Reports: no symptoms Allergies: Coded Allergies: CEFEPIME (Verified Allergy, Intermediate, Rash, 03/01/18) Tolerates Carbapenem Objective Last 24 Hour Vital Signs Date Time Temp Pulse Resp B/P (MAP) Pulse Ox O2 Delivery O2 Flow Rate FiO2 07/13/18 20:11 Nasal Cannula 2.0 07/13/18 17:53 75 112/65 07/13/18 16:00 96.6 75 24 112/65 (81) 100 07/13/18 12:00 97.7 72 23 97/49 (65) 97 07/13/18 09:00 71 114/57 07/13/18 09:00 71 114/57 07/13/18 09:00 Nasal Cannula 2.0 07/13/18 08:00 97.5 71 20 114/57 (76) 97 07/13/18 04:00 97.5 71 17 140/67 (91) 96 07/12/18 21:02 79 128/61 07/12/18 20:27 Nasal Cannula 2.0 Intake and Output 07/12/18 07/13/18 19:00 07:00 Intake Total 1480 ml 880 ml Output Total 1200 ml 1050 ml Balance 280 ml -170 ml Intake Oral 600 ml IV Total 880 ml 880 ml Output Urine Total 1200 ml 1050 ml # Bowel Movements 1 1 General Appearance: WD/WN HEENT: normocephalic, anicteric Respiratory/Chest: chest wall non-tender, lungs clear Cardiovascular: normal peripheral pulses, regular rhythm Genitourinary: normal external genitalia Extremities: no clubbing Skin: no lesions, no ulcers Laboratory Tests 07/13/18 09:40: Prothrombin Time 10.8, Prothromb Time International Ratio 1.0, Activated Partial Thromboplast Time 35H, Sodium Level 141, Potassium Level 4.3, Chloride Level 109H, Carbon Dioxide Level 19L, Anion Gap 13, Blood Urea Nitrogen 59H, Creatinine 6.4H, Estimat Glomerular Filtration Rate 8.8, Glucose Level 200H, Calcium Level 8.2L, Phosphorus Level 4.5, Magnesium Level 1.6L, Total Bilirubin 0.4, Gamma Glutamyl Transpeptidase 32, Aspartate Amino Transf (AST/SGOT) 14L, Alanine Aminotransferase (ALT/SGPT) 14, Alkaline Phosphatase 101, Total Protein 5.6L, Albumin 2.1L, Globulin 3.5, Albumin/Globulin Ratio 0.6L Current Medications Medications (Trade) Dose Ordered Sig/Dunia Route PRN Reason Start Time Stop Time Status Last Admin Dose Admin Acetaminophen (Tylenol) 650 mg Q6H PRN ORAL Mild Pain/Temp > 100.5 07/12/18 16:08 08/08/18 16:07 Albuterol/ Ipratropium (Albuterol/ Ipratropium) 3 ml Q4H PRN HHN Shortness of Breath 07/12/18 16:09 07/14/18 16:08 Amlodipine Besylate (Norvasc) 5 mg BID ORAL 07/12/18 18:00 08/08/18 08:59 Atorvastatin Calcium (Lipitor) 10 mg BEDTIME ORAL 07/12/18 21:00 08/07/18 20:59 07/12/18 21:02 Clonidine HCl (Catapres Tab) 0.1 mg Q4H PRN ORAL bp over 160 syst 07/12/18 16:08 08/07/18 16:07 Dextrose (Dextrose 50%) 25 ml Q30M PRN IV Hypoglycemia 07/12/18 16:09 08/07/18 16:08 Dextrose (Dextrose 50%) 50 ml Q30M PRN IV Hypoglycemia 07/12/18 16:09 08/07/18 16:08 Docusate Sodium (Colace) 100 mg TWICE A DAY ORAL 07/12/18 18:00 08/07/18 17:59 07/13/18 17:59 Duloxetine HCl (Cymbalta) 30 mg DAILY ORAL 07/13/18 09:00 08/08/18 08:59 07/13/18 10:44 Heparin Sodium (Porcine) (Heparin 5000 units/ml) 5,000 units EVERY 8 HOURS SUBQ 07/12/18 22:00 08/07/18 21:59 07/13/18 13:18 Insulin Aspart (NovoLOG) BEFORE MEALS AND HS SUBQ 07/12/18 16:30 08/07/18 20:59 07/13/18 18:01 Meropenem 500 mg/ Sodium Chloride 55 ml @ 110 mls/hr EVERY 12 HOURS IVPB 07/12/18 21:00 07/18/18 20:59 07/13/18 10:44 Metoprolol Succinate (Toprol XL) 50 mg Q12HR ORAL 07/12/18 21:00 08/07/18 20:59 07/12/18 21:02 Ondansetron HCl (Zofran) 4 mg Q6H PRN IVP Nausea & Vomiting 07/12/18 16:09 08/07/18 16:08 Pantoprazole (Protonix) 40 mg BID ORAL 07/12/18 18:00 08/07/18 16:29 07/13/18 17:58 Sevelamer Carbonate (Renvela) 800 mg THREE TIMES A DAY ORAL 07/12/18 18:00 08/07/18 17:59 07/13/18 17:58 Sodium Bicarbonate 50 ml/ Sodium Chloride 1,050 ml @ 75 mls/hr Q14H IV 07/12/18 16:13 08/10/18 16:12 07/13/18 14:22 Sodium Citrate (Bicitra) 30 ml EVERY 6 HOURS ORAL 07/12/18 18:00 08/07/18 17:59 07/13/18 17:59 Tamsulosin HCl (Flomax) 0.4 mg BID ORAL 07/12/18 18:00 08/07/18 17:59 07/13/18 17:59 Esdras Delgado MD Jul 13, 2018 20:25
[2018-07-14 04:00] VITALS: BP 153/71
[2018-07-14] MEDS: Heparin 5000 units/ml inj SUBQ SCH ×3 (06:13→21:44)
[2018-07-14] MEDS: Sodium Citrate 30ml ORAL SCH ×5 (06:13→23:59)
[2018-07-14] MEDS: NovoLOG Insulin Flexpen SUBQ SCH ×4 (06:14→21:00)
[2018-07-14 08:00] VITALS: BP 141/76
[2018-07-14] MEDS ORDERED: Levemir Flexpen SUBQ SCH (08:30)
[2018-07-14] MEDS: Tamsulosin 0.4mg cap ORAL SCH ×2 (08:57→17:33)
[2018-07-14] MEDS: DULoxetine 30mg cap ORAL SCH (08:57)
[2018-07-14] MEDS: Docusate 100mg cap ORAL SCH ×2 (08:57→17:42)
[2018-07-14] MEDS: Renvela 800mg Pkt ORAL SCH ×3 (08:58→17:37)
[2018-07-14] MEDS: Metoprolol Succinate XL 50mg tab ORAL SCH ×2 (08:58→21:32)
[2018-07-14] MEDS: Sodium Bicarbonate 50 ML in NS 1000ml 1,000 ML IV SCH ×2 (09:01→23:51)
[2018-07-14] MEDS: Meropenem 500 MG in NS 55 ML IVPB SCH ×2 (09:01→21:27)
--- NOTE | 2018-07-14 09:16 | Infectious Diseases Prog Note ---
Assessment/Plan Assessment/Plan The patient is a 63-year-old male with: Urosepsis - Bacteremia (gram-negative rods). 07/08/18 UCx - P.a. MDR and Proteus - Patient clincally improving on Meropenem. No P.a. in the blood so I am not treating this specifically and am considering it a colonizer at this point 07/08/18 BCx Proteus and K. pneumo Sepsis. Fever, Leukocytosis PLAN: - Continue meropenem #12/23. - Monitor CBC. - Monitor BMP. - Monitor Rash I will follow the patient with you during this hospitalization. Subjective Allergies: Coded Allergies: CEFEPIME (Verified Allergy, Intermediate, Rash, 03/01/18) Tolerates Carbapenem Subjective Patient now afebrile Leukocytosis resolved Objective Vital Signs Last 24 Hour Vital Signs Date Time Temp Pulse Resp B/P (MAP) Pulse Ox O2 Delivery O2 Flow Rate FiO2 07/14/18 09:06 87 141/76 07/14/18 08:58 87 141/76 07/14/18 08:00 97.9 87 19 141/76 (97) 98 07/14/18 04:00 97.1 87 19 153/71 (98) 96 07/13/18 21:12 95 Room Air 21 07/13/18 21:12 Room Air 21 07/13/18 21:12 85 18 Room Air 21 07/13/18 20:48 92 155/81 07/13/18 20:11 Nasal Cannula 2.0 07/13/18 20:00 97.5 92 19 155/81 (105) 96 07/13/18 17:53 75 112/65 07/13/18 16:00 96.6 75 24 112/65 (81) 100 07/13/18 12:00 97.7 72 23 97/49 (65) 97 Height (Feet): 5 Height (Inches): 10.00 Weight (Pounds): 180 Objective GEN: NAD HEENT: NCAT, MMM, EOMI CHEST: CTAB, No W. HEART: RRR, S1 and S2. ABDOMEN: Soft. Nontender. Suprapubic catheter in place. NEUROLOGIC: Awake. Skin: Rash on arms Laboratory Tests Test 07/13/18 09:40 Prothrombin Time 10.8 SEC (9.30-11.50) Prothromb Time International Ratio 1.0 (0.9-1.1) Activated Partial Thromboplast Time 35 SEC (23-33) H Sodium Level 141 MMOL/L (136-145) Potassium Level 4.3 MMOL/L (3.5-5.1) Chloride Level 109 MMOL/L (98-107) H Carbon Dioxide Level 19 MMOL/L (21-32) L Anion Gap 13 mmol/L (5-15) Blood Urea Nitrogen 59 mg/dL (7-18) H Creatinine 6.4 MG/DL (0.55-1.30) H Estimat Glomerular Filtration Rate 8.8 mL/min (>60) Glucose Level 200 MG/DL (74-106) H Calcium Level 8.2 MG/DL (8.5-10.1) L Phosphorus Level 4.5 MG/DL (2.5-4.9) Magnesium Level 1.6 MG/DL (1.8-2.4) L Total Bilirubin 0.4 MG/DL (0.2-1.0) Gamma Glutamyl Transpeptidase 32 U/L (5-85) Aspartate Amino Transf (AST/SGOT) 14 U/L (15-37) L Alanine Aminotransferase (ALT/SGPT) 14 U/L (12-78) Alkaline Phosphatase 101 U/L (46-116) Total Protein 5.6 G/DL (6.4-8.2) L Albumin 2.1 G/DL (3.4-5.0) L Globulin 3.5 g/dL Albumin/Globulin Ratio 0.6 (1.0-2.7) L Current Medications Medications (Trade) Dose Ordered Sig/Dunia Route PRN Reason Start Time Stop Time Status Last Admin Dose Admin Acetaminophen (Tylenol) 650 mg Q6H PRN ORAL Mild Pain/Temp > 100.5 07/12/18 16:08 08/08/18 16:07 Albuterol/ Ipratropium (Albuterol/ Ipratropium) 3 ml Q4H PRN HHN Shortness of Breath 07/12/18 16:09 07/14/18 16:08 Amlodipine Besylate (Norvasc) 5 mg BID ORAL 07/12/18 18:00 08/08/18 08:59 07/14/18 09:06 Atorvastatin Calcium (Lipitor) 10 mg BEDTIME ORAL 07/12/18 21:00 08/07/18 20:59 07/13/18 20:47 Clonidine HCl (Catapres Tab) 0.1 mg Q4H PRN ORAL bp over 160 syst 07/12/18 16:08 08/07/18 16:07 Dextrose (Dextrose 50%) 25 ml Q30M PRN IV Hypoglycemia 07/12/18 16:09 08/07/18 16:08 Dextrose (Dextrose 50%) 50 ml Q30M PRN IV Hypoglycemia 07/12/18 16:09 08/07/18 16:08 Docusate Sodium (Colace) 100 mg TWICE A DAY ORAL 07/12/18 18:00 08/07/18 17:59 07/14/18 08:57 Duloxetine HCl (Cymbalta) 30 mg DAILY ORAL 07/13/18 09:00 08/08/18 08:59 07/14/18 08:57 Heparin Sodium (Porcine) (Heparin 5000 units/ml) 5,000 units EVERY 8 HOURS SUBQ 07/12/18 22:00 08/07/18 21:59 07/14/18 06:13 Insulin Aspart (NovoLOG) BEFORE MEALS AND HS SUBQ 07/12/18 16:30 08/07/18 20:59 07/14/18 06:14 Insulin Detemir (Levemir) 10 units ONCE SUBQ 07/14/18 08:30 07/14/18 09:30 07/14/18 09:00 Meropenem 500 mg/ Sodium Chloride 55 ml @ 110 mls/hr EVERY 12 HOURS IVPB 07/12/18 21:00 07/18/18 20:59 07/14/18 09:01 Metoprolol Succinate (Toprol XL) 50 mg Q12HR ORAL 07/12/18 21:00 08/07/18 20:59 07/14/18 08:58 Ondansetron HCl (Zofran) 4 mg Q6H PRN IVP Nausea & Vomiting 07/12/18 16:09 08/07/18 16:08 Pantoprazole (Protonix) 40 mg BID ORAL 07/12/18 18:00 08/07/18 16:29 07/14/18 08:58 Sevelamer Carbonate (Renvela) 800 mg THREE TIMES A DAY ORAL 07/12/18 18:00 08/07/18 17:59 07/14/18 08:58 Sodium Bicarbonate 50 ml/ Sodium Chloride 1,050 ml @ 75 mls/hr Q14H IV 07/12/18 16:13 08/10/18 16:12 07/14/18 09:01 Sodium Citrate (Bicitra) 30 ml EVERY 6 HOURS ORAL 07/12/18 18:00 08/07/18 17:59 07/14/18 06:13 Tamsulosin HCl (Flomax) 0.4 mg BID ORAL 07/12/18 18:00 08/07/18 17:59 07/14/18 08:57 William Caputo MD Jul 14, 2018 09:16
--- NOTE | 2018-07-14 11:32 | Nephrology Progress Note ---
Assessment/Plan Problem List: (1) CKD (chronic kidney disease), stage IV (2) HTN (hypertension) (3) UTI (urinary tract infection) (4) Encephalopathy Assessment Sepsis Pneumonia HypoKalemia encephalopathy Anemia in chronic kidney disease Acute on chronic renal failure Cr rising Psychiatric disturbance Acidosis, metabolic UTI (urinary tract infection) Encephalopathy h/o Recurrent hematuria history of recurrent UTI Suprapubic catheter Neurogenic bladder BPH Status post renal pancreatic transplant h/o Elevated lipase Diabetes mellitus type 2 with hx of DKA Hypertension now low BP COPD/asthma Coronary artery disease with history of NSTEMI major depressive disorder with history of suicidal attempt Plan Cr unchanged patient offered dialysis REFUSING AGAIN adjust BP meds- Hydrate- slow add bicarb to IV PO Bicitra mag and KCL as needed BS check and adjustment antibiotics watch Hgb Gastric support patient DNR monitor renal parameters avoid nephrotoxics ? DC planning Subjective ROS Limited/Unobtainable: No Constitutional: Reports: malaise Objective Objective Last 24 Hour Vital Signs Date Time Temp Pulse Resp B/P (MAP) Pulse Ox O2 Delivery O2 Flow Rate FiO2 07/14/18 09:06 87 141/76 07/14/18 09:00 Nasal Cannula 2.0 07/14/18 08:58 87 141/76 07/14/18 08:00 97.9 87 19 141/76 (97) 98 07/14/18 04:00 97.1 87 19 153/71 (98) 96 07/13/18 21:12 95 Room Air 21 07/13/18 21:12 Room Air 21 07/13/18 21:12 85 18 Room Air 21 07/13/18 20:48 92 155/81 07/13/18 20:11 Nasal Cannula 2.0 07/13/18 20:00 97.5 92 19 155/81 (105) 96 07/13/18 17:53 75 112/65 07/13/18 16:00 96.6 75 24 112/65 (81) 100 07/13/18 12:00 97.7 72 23 97/49 (65) 97 Intake and Output 07/13/18 07/14/18 19:00 07:00 Intake Total 720 ml 1225 ml Output Total 1100 ml 100 ml Balance -380 ml 1125 ml Intake Oral 720 ml 120 ml IV Total 1105 ml Output Urine Total 1100 ml 100 ml # Voids 2 # Bowel Movements 1 Height (Feet): 5 Height (Inches): 10.00 Weight (Pounds): 180 General Appearance: no apparent distress Cardiovascular: tachycardia Respiratory/Chest: decreased breath sounds Abdomen: soft Objective no change Luis Chambers MD Jul 14, 2018 11:32
[2018-07-14 12:00] VITALS: BP_SYST 125; BP_SYST 141; BP_DIAS 62; BP_DIAS 76
--- NOTE | 2018-07-14 16:10 | Pulmonology Progress Note ---
Assessment/Plan Problems: (1) Bacteremia (2) Pulmonary HTN (3) Encephalopathy acute (4) Blind left eye (5) Suprapubic catheter (6) Anemia in chronic kidney disease (7) DKA (diabetic ketoacidoses) (8) HTN (hypertension) (9) Major depressive disorder Assessment/Plan iv abx, On Meropenem day 6 add Levemir 12 BID, ( was discharged on it last admission) BS still high sliding scale Urology f/u monitor BP dvt prophylaxis psychiatry f/u Subjective ROS Limited/Unobtainable: No Constitutional: Reports: no symptoms HEENT: Repors: no symptoms Respiratory: Reports: no symptoms Allergies: Coded Allergies: CEFEPIME (Verified Allergy, Intermediate, Rash, 03/01/18) Tolerates Carbapenem Objective Last 24 Hour Vital Signs Date Time Temp Pulse Resp B/P (MAP) Pulse Ox O2 Delivery O2 Flow Rate FiO2 07/14/18 14:28 97 Room Air 21 07/14/18 14:28 88 18 Room Air 21 07/14/18 14:28 Room Air 21 07/14/18 12:00 98.6 74 20 125/62 (83) 99 07/14/18 12:00 97.9 87 19 141/76 (97) 98 07/14/18 09:06 87 141/76 07/14/18 09:00 Nasal Cannula 2.0 07/14/18 08:58 87 141/76 07/14/18 08:00 97.9 87 19 141/76 (97) 98 07/14/18 04:00 97.1 87 19 153/71 (98) 96 07/13/18 21:12 95 Room Air 21 07/13/18 21:12 Room Air 21 07/13/18 21:12 85 18 Room Air 21 07/13/18 20:48 92 155/81 07/13/18 20:11 Nasal Cannula 2.0 07/13/18 20:00 97.5 92 19 155/81 (105) 96 07/13/18 17:53 75 112/65 Intake and Output 07/13/18 07/14/18 18:59 06:59 Intake Total 720 ml 1225 ml Output Total 1100 ml 100 ml Balance -380 ml 1125 ml Intake Oral 720 ml 120 ml IV Total 1105 ml Output Urine Total 1100 ml 100 ml # Voids 2 # Bowel Movements 1 General Appearance: WD/WN HEENT: normocephalic, atraumatic, anicteric Respiratory/Chest: chest wall non-tender, lungs clear Cardiovascular: normal peripheral pulses, normal rate Abdomen: normal bowel sounds, soft, non tender Genitourinary: normal external genitalia Extremities: no cyanosis Skin: no ulcers 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 Current Medications Medications (Trade) Dose Ordered Sig/Dunia Route PRN Reason Start Time Stop Time Status Last Admin Dose Admin Acetaminophen (Tylenol) 650 mg Q6H PRN ORAL Mild Pain/Temp > 100.5 07/12/18 16:08 08/08/18 16:07 Albuterol/ Ipratropium (Albuterol/ Ipratropium) 3 ml Q4H PRN HHN Shortness of Breath 07/12/18 16:09 07/14/18 16:08 Amlodipine Besylate (Norvasc) 5 mg BID ORAL 07/12/18 18:00 08/08/18 08:59 07/14/18 09:06 Atorvastatin Calcium (Lipitor) 10 mg BEDTIME ORAL 07/12/18 21:00 08/07/18 20:59 07/13/18 20:47 Clonidine HCl (Catapres Tab) 0.1 mg Q4H PRN ORAL bp over 160 syst 07/12/18 16:08 08/07/18 16:07 Dextrose (Dextrose 50%) 25 ml Q30M PRN IV Hypoglycemia 07/12/18 16:09 08/07/18 16:08 Dextrose (Dextrose 50%) 50 ml Q30M PRN IV Hypoglycemia 07/12/18 16:09 08/07/18 16:08 Docusate Sodium (Colace) 100 mg TWICE A DAY ORAL 07/12/18 18:00 08/07/18 17:59 07/14/18 08:57 Duloxetine HCl (Cymbalta) 30 mg DAILY ORAL 07/13/18 09:00 08/08/18 08:59 07/14/18 08:57 Heparin Sodium (Porcine) (Heparin 5000 units/ml) 5,000 units EVERY 8 HOURS SUBQ 07/12/18 22:00 08/07/18 21:59 07/14/18 06:13 Insulin Aspart (NovoLOG) BEFORE MEALS AND HS SUBQ 07/12/18 16:30 08/07/18 20:59 07/14/18 12:28 Meropenem 500 mg/ Sodium Chloride 55 ml @ 110 mls/hr EVERY 12 HOURS IVPB 07/12/18 21:00 07/18/18 20:59 07/14/18 09:01 Metoprolol Succinate (Toprol XL) 50 mg Q12HR ORAL 07/12/18 21:00 08/07/18 20:59 07/14/18 08:58 Ondansetron HCl (Zofran) 4 mg Q6H PRN IVP Nausea & Vomiting 07/12/18 16:09 08/07/18 16:08 Pantoprazole (Protonix) 40 mg BID ORAL 07/12/18 18:00 08/07/18 16:29 07/14/18 08:58 Sevelamer Carbonate (Renvela) 800 mg THREE TIMES A DAY ORAL 07/12/18 18:00 08/07/18 17:59 07/14/18 13:59 Sodium Bicarbonate 50 ml/ Sodium Chloride 1,050 ml @ 75 mls/hr Q14H IV 07/12/18 16:13 08/10/18 16:12 07/14/18 09:01 Sodium Citrate (Bicitra) 30 ml EVERY 6 HOURS ORAL 07/12/18 18:00 08/07/18 17:59 07/14/18 13:59 Tamsulosin HCl (Flomax) 0.4 mg BID ORAL 07/12/18 18:00 08/07/18 17:59 07/14/18 08:57 Esdras Delgado MD Jul 14, 2018 16:10
[2018-07-14 16:22] VITALS: BP 118/55
--- NOTE | 2018-07-14 17:00 | Internal Med Progress Note ---
Subjective Date of Service: Jul 14, 2018 Physician Name Jose Glasgow Attending Physician Christopher Rosado MD Current Medications Medications (Trade) Dose Ordered Sig/Dunia Route PRN Reason Start Time Stop Time Status Last Admin Dose Admin Acetaminophen (Tylenol) 650 mg Q6H PRN ORAL Mild Pain/Temp > 100.5 07/12/18 16:08 08/08/18 16:07 Amlodipine Besylate (Norvasc) 5 mg BID ORAL 07/12/18 18:00 08/08/18 08:59 07/14/18 09:06 Atorvastatin Calcium (Lipitor) 10 mg BEDTIME ORAL 07/12/18 21:00 08/07/18 20:59 07/13/18 20:47 Clonidine HCl (Catapres Tab) 0.1 mg Q4H PRN ORAL bp over 160 syst 07/12/18 16:08 08/07/18 16:07 Dextrose (Dextrose 50%) 25 ml Q30M PRN IV Hypoglycemia 07/12/18 16:09 08/07/18 16:08 Dextrose (Dextrose 50%) 50 ml Q30M PRN IV Hypoglycemia 07/12/18 16:09 08/07/18 16:08 Docusate Sodium (Colace) 100 mg TWICE A DAY ORAL 07/12/18 18:00 08/07/18 17:59 07/14/18 08:57 Duloxetine HCl (Cymbalta) 30 mg DAILY ORAL 07/13/18 09:00 08/08/18 08:59 07/14/18 08:57 Heparin Sodium (Porcine) (Heparin 5000 units/ml) 5,000 units EVERY 8 HOURS SUBQ 07/12/18 22:00 08/07/18 21:59 07/14/18 06:13 Insulin Aspart (NovoLOG) BEFORE MEALS AND HS SUBQ 07/12/18 16:30 08/07/18 20:59 07/14/18 12:28 Insulin Detemir (Levemir) 12 units BID SUBQ 07/14/18 18:00 08/13/18 17:59 Meropenem 500 mg/ Sodium Chloride 55 ml @ 110 mls/hr EVERY 12 HOURS IVPB 07/12/18 21:00 07/18/18 20:59 07/14/18 09:01 Metoprolol Succinate (Toprol XL) 50 mg Q12HR ORAL 07/12/18 21:00 08/07/18 20:59 07/14/18 08:58 Ondansetron HCl (Zofran) 4 mg Q6H PRN IVP Nausea & Vomiting 07/12/18 16:09 08/07/18 16:08 Pantoprazole (Protonix) 40 mg BID ORAL 07/12/18 18:00 08/07/18 16:29 07/14/18 08:58 Sevelamer Carbonate (Renvela) 800 mg THREE TIMES A DAY ORAL 07/12/18 18:00 08/07/18 17:59 07/14/18 13:59 Sodium Bicarbonate 50 ml/ Sodium Chloride 1,050 ml @ 75 mls/hr Q14H IV 07/12/18 16:13 08/10/18 16:12 07/14/18 09:01 Sodium Citrate (Bicitra) 30 ml EVERY 6 HOURS ORAL 07/12/18 18:00 08/07/18 17:59 07/14/18 13:59 Tamsulosin HCl (Flomax) 0.4 mg BID ORAL 07/12/18 18:00 08/07/18 17:59 07/14/18 08:57 Allergies: Coded Allergies: CEFEPIME (Verified Allergy, Intermediate, Rash, 03/01/18) Tolerates Carbapenem ROS Limited/Unobtainable: No Subjective 63 YO M admitted with dehydration and hypotension. Now sepsis and urinary tract infection. Accucheck >500. Cover for Int Med-Dr Rosado. Objective Last Vital Signs Date Time Temp Pulse Resp B/P (MAP) Pulse Ox O2 Delivery O2 Flow Rate FiO2 07/14/18 16:22 98.1 73 19 118/55 (76) 96 07/14/18 14:28 Room Air 21 07/14/18 09:00 2.0 Intake and Output 07/13/18 07/14/18 18:59 06:59 Intake Total 720 ml 1225 ml Output Total 1100 ml 100 ml Balance -380 ml 1125 ml Intake Oral 720 ml 120 ml IV Total 1105 ml Output Urine Total 1100 ml 100 ml # Voids 2 # Bowel Movements 1 Objective PHYSICAL EXAMINATION: GENERAL: The patient is awake and responsive, in no acute distress. HEAD AND NECK: Pupils are equal and reactive to light. Extraocular movements are intact in the right eye. 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 Neck was supple. No JVD. LUNGS: Good air entry. No wheezing or rales. HEART: S1 and S2. Distant heart sounds. No gallops. ABDOMEN: Soft, nontender, and nontender. Suprapubic catheter was noted. EXTREMITIES: No cyanosis or clubbing. Bilateral lower extremity +2 edema. NEUROLOGIC: Cranial nerves II through XII grossly intact. Motor is 5/5 in all extremities. Gait was not assessed due to the patient's status. Assessment/Plan Assessment/Plan ASSESSMENT: 1. Sepsis(Proteus-ESBL and klebsiella) secondary to catheter associated urinary tract infection (providencia and pseudamonas-MDR), present on admission. Continue meropenem per ID 2. Hypertension. 3. Dyslipidemia. 4. Uncontrolled Diabetes type 1 with prior history of diabetic ketoacidosis. 5. Diabetic retinopathy of the left eye blindness. 6. End-stage renal disease secondary to diabetic nephrosclerosis. 7. Coronary artery disease with prior history of myocardial infarction. 8. 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 9. 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 10. Secondary hyperparathyroidism with vitamin D deficiency. 11. Anemia of chronic kidney disease. 12. Metabolic acidosis. 13. Depression with prior suicide attempt. PLAN: 1. Admit the patient to telemetry. 2. Code status is DNR/DNI as per POLST in the chart. 3. Resume snf medications. 4. Follow up with culture. 5. Broad spectrum antibiotic with meropenem. 6. DVT prophylaxis, heparin subcutaneous. 7. We will follow up with Dr. Chambers from Nephrology and Dr. Rich Wick from Infectious Disease. 8. We will follow up with the cultures and laboratory in the morning. 9. Accu-Chek with sliding scale. 10. Add Jose Funk MD Jul 14, 2018 17:00
[2018-07-14] MEDS: Levemir Flexpen SUBQ SCH (17:39)
[2018-07-14 20:00] VITALS: BP 110/55
[2018-07-15] VITALS: BP 116/54
--- NOTE | 2018-07-15 00:07 | General Progress Note ---
Assessment/Plan Problem List: (1) Major depressive disorder ICD Codes: F32.9 - Major depressive disorder, single episode, unspecified SNOMED: [id number] Status: stable Assessment/Plan cont Cymbalta 30mg qam provided ro/st Subjective Neurologic/Psychiatric: Reports: anxiety, depressed, emotional problems Allergies: Coded Allergies: CEFEPIME (Verified Allergy, Intermediate, Rash, 03/01/18) Tolerates Carbapenem Subjective the pt cont to be depressed no si he has hypersomnia no si Objective Last 24 Hour Vital Signs Date Time Temp Pulse Resp B/P (MAP) Pulse Ox O2 Delivery O2 Flow Rate FiO2 07/14/18 21:32 63 110/55 07/14/18 21:00 Nasal Cannula 2.0 07/14/18 20:35 79 18 Room Air 21 07/14/18 20:35 96 Room Air 21 07/14/18 20:35 Room Air 21 07/14/18 20:00 97.5 63 20 110/55 (73) 07/14/18 17:37 73 118/55 07/14/18 16:22 98.1 73 19 118/55 (76) 96 07/14/18 14:28 97 Room Air 21 07/14/18 14:28 88 18 Room Air 21 07/14/18 14:28 Room Air 21 07/14/18 12:00 98.6 74 20 125/62 (83) 99 07/14/18 12:00 97.9 87 19 141/76 (97) 98 07/14/18 09:06 87 141/76 07/14/18 09:00 Nasal Cannula 2.0 07/14/18 08:58 87 141/76 07/14/18 08:00 97.9 87 19 141/76 (97) 98 07/14/18 04:00 97.1 87 19 153/71 (98) 96 Intake and Output 07/14/18 07/15/18 19:00 07:00 Intake Total 1370 ml 300 ml Output Total 800 ml Balance 570 ml 300 ml Intake Oral 620 ml IV Total 750 ml 300 ml Output Urine Total 800 ml Height (Feet): 5 Height (Inches): 10.00 Weight (Pounds): 180 General Appearance: alert, overweight Neurologic: oriented x 3, responsive, depressed affect Fatmata Lu MD Jul 15, 2018 00:07
[2018-07-15 04:00] VITALS: BP 126/51
[2018-07-15] MEDS: Sodium Citrate 30ml ORAL SCH ×3 (05:34→18:27)
[2018-07-15] MEDS: Heparin 5000 units/ml inj SUBQ SCH ×3 (05:35→21:28)
[2018-07-15] MEDS: NovoLOG Insulin Flexpen SUBQ SCH ×4 (06:30→21:00)
[2018-07-15 08:00] VITALS: BP 155/77
[2018-07-15] MEDS: DULoxetine 30mg cap ORAL SCH (08:51)
[2018-07-15] MEDS: Meropenem 500 MG in NS 55 ML IVPB SCH ×2 (08:51→21:20)
[2018-07-15] MEDS: Renvela 800mg Pkt ORAL SCH ×3 (08:51→18:26)
[2018-07-15] MEDS: Docusate 100mg cap ORAL SCH ×2 (08:52→18:26)
[2018-07-15] MEDS: Metoprolol Succinate XL 50mg tab ORAL SCH ×2 (08:52→21:20)
[2018-07-15] MEDS: Tamsulosin 0.4mg cap ORAL SCH ×2 (08:52→18:26)
[2018-07-15] MEDS: Levemir Flexpen SUBQ SCH ×2 (08:59→18:00)
--- NOTE | 2018-07-15 09:31 | Infectious Diseases Prog Note ---
Assessment/Plan Assessment/Plan The patient is a 63-year-old male with: Urosepsis - Bacteremia (gram-negative rods). 07/08/18 UCx - P.a. MDR and Proteus - Patient clincally improving on Meropenem. No P.a. in the blood so I am not treating this specifically and am considering it a colonizer at this point 07/08/18 BCx Proteus and K. pneumo Sepsis. Fever, Leukocytosis PLAN: - Continue meropenem #01/22. End date 07/22/18 - Monitor CBC. - Monitor BMP. 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 Subjective Allergies: Coded Allergies: CEFEPIME (Verified Allergy, Intermediate, Rash, 03/01/18) Tolerates Carbapenem Subjective CECIL Afebrile No Leukocytosis Objective Vital Signs Last 24 Hour Vital Signs Date Time Temp Pulse Resp B/P (MAP) Pulse Ox O2 Delivery O2 Flow Rate FiO2 07/15/18 08:52 73 155/77 07/15/18 08:51 73 155/77 07/15/18 08:00 99.0 73 20 155/77 (103) 95 07/15/18 04:00 97.2 68 20 126/51 (76) 100 07/15/18 00:00 97.9 63 20 116/54 (74) 07/14/18 21:32 63 110/55 07/14/18 21:00 Nasal Cannula 2.0 07/14/18 20:35 79 18 Room Air 21 07/14/18 20:35 96 Room Air 21 07/14/18 20:35 Room Air 21 07/14/18 20:00 97.5 63 20 110/55 (73) 07/14/18 17:37 73 118/55 07/14/18 16:22 98.1 73 19 118/55 (76) 96 07/14/18 14:28 97 Room Air 21 07/14/18 14:28 88 18 Room Air 21 07/14/18 14:28 Room Air 21 07/14/18 12:00 98.6 74 20 125/62 (83) 99 07/14/18 12:00 97.9 87 19 141/76 (97) 98 Height (Feet): 5 Height (Inches): 10.00 Weight (Pounds): 180 Objective GEN: NAD HEENT: NCAT, MMM, EOMI CHEST: CTAB, No W. HEART: RRR, S1 and S2. ABDOMEN: Soft. Nontender. Suprapubic catheter in place. NEUROLOGIC: Awake A/O x 4. Current Medications Medications (Trade) Dose Ordered Sig/Dunia Route PRN Reason Start Time Stop Time Status Last Admin Dose Admin Acetaminophen (Tylenol) 650 mg Q6H PRN ORAL Mild Pain/Temp > 100.5 07/12/18 16:08 08/08/18 16:07 Amlodipine Besylate (Norvasc) 5 mg BID ORAL 07/12/18 18:00 08/08/18 08:59 07/15/18 08:51 Atorvastatin Calcium (Lipitor) 10 mg BEDTIME ORAL 07/12/18 21:00 08/07/18 20:59 07/14/18 21:28 Clonidine HCl (Catapres Tab) 0.1 mg Q4H PRN ORAL bp over 160 syst 07/12/18 16:08 08/07/18 16:07 Dextrose (Dextrose 50%) 25 ml Q30M PRN IV Hypoglycemia 07/12/18 16:09 08/07/18 16:08 Dextrose (Dextrose 50%) 50 ml Q30M PRN IV Hypoglycemia 07/12/18 16:09 08/07/18 16:08 Docusate Sodium (Colace) 100 mg TWICE A DAY ORAL 07/12/18 18:00 08/07/18 17:59 07/15/18 08:52 Duloxetine HCl (Cymbalta) 30 mg DAILY ORAL 07/13/18 09:00 08/08/18 08:59 07/15/18 08:51 Heparin Sodium (Porcine) (Heparin 5000 units/ml) 5,000 units EVERY 8 HOURS SUBQ 07/12/18 22:00 08/07/18 21:59 07/15/18 05:35 Insulin Aspart (NovoLOG) BEFORE MEALS AND HS SUBQ 07/12/18 16:30 08/07/18 20:59 07/14/18 21:00 Insulin Detemir (Levemir) 12 units BID SUBQ 07/14/18 18:00 08/13/18 17:59 07/15/18 08:59 Meropenem 500 mg/ Sodium Chloride 55 ml @ 110 mls/hr EVERY 12 HOURS IVPB 07/12/18 21:00 07/18/18 20:59 07/15/18 08:51 Metoprolol Succinate (Toprol XL) 50 mg Q12HR ORAL 07/12/18 21:00 08/07/18 20:59 07/15/18 08:52 Ondansetron HCl (Zofran) 4 mg Q6H PRN IVP Nausea & Vomiting 07/12/18 16:09 08/07/18 16:08 Pantoprazole (Protonix) 40 mg BID ORAL 07/12/18 18:00 08/07/18 16:29 07/15/18 08:51 Sevelamer Carbonate (Renvela) 800 mg THREE TIMES A DAY ORAL 07/12/18 18:00 08/07/18 17:59 07/15/18 08:51 Sodium Bicarbonate 50 ml/ Sodium Chloride 1,050 ml @ 75 mls/hr Q14H IV 07/12/18 16:13 08/10/18 16:12 07/14/18 23:51 Sodium Citrate (Bicitra) 30 ml EVERY 6 HOURS ORAL 07/12/18 18:00 08/07/18 17:59 07/15/18 05:34 Tamsulosin HCl (Flomax) 0.4 mg BID ORAL 07/12/18 18:00 08/07/18 17:59 07/15/18 08:52 William Caputo MD Jul 15, 2018 09:31
--- NOTE | 2018-07-15 11:35 | Nephrology Progress Note ---
Assessment/Plan Problem List: (1) HTN (hypertension) (2) CKD (chronic kidney disease), stage III (3) Anemia in chronic kidney disease (4) Suprapubic catheter Assessment Sepsis Pneumonia HypoKalemia encephalopathy Anemia in chronic kidney disease Acute on chronic renal failure Cr rising Psychiatric disturbance Acidosis, metabolic UTI (urinary tract infection) Encephalopathy h/o Recurrent hematuria history of recurrent UTI Suprapubic catheter Neurogenic bladder BPH Status post renal pancreatic transplant h/o Elevated lipase Diabetes mellitus type 2 with hx of DKA Hypertension now low BP COPD/asthma Coronary artery disease with history of NSTEMI major depressive disorder with history of suicidal attempt Plan Cr unchanged patient offered dialysis REFUSING AGAIN adjust BP meds- Hydrate- slow add bicarb to IV PO Bicitra mag and KCL as needed BS check and adjustment antibiotics watch Hgb Gastric support patient DNR monitor renal parameters avoid nephrotoxics ? DC planning Subjective ROS Limited/Unobtainable: No Constitutional: Reports: malaise Objective Objective Last 24 Hour Vital Signs Date Time Temp Pulse Resp B/P (MAP) Pulse Ox O2 Delivery O2 Flow Rate FiO2 07/15/18 09:43 81 18 Room Air 21 07/15/18 09:43 Room Air 21 07/15/18 09:43 97 Room Air 21 07/15/18 09:00 Nasal Cannula 2.0 07/15/18 08:52 73 155/77 07/15/18 08:51 73 155/77 07/15/18 08:00 99.0 73 20 155/77 (103) 95 07/15/18 04:00 97.2 68 20 126/51 (76) 100 07/15/18 00:00 97.9 63 20 116/54 (74) 07/14/18 21:32 63 110/55 07/14/18 21:00 Nasal Cannula 2.0 07/14/18 20:35 79 18 Room Air 21 07/14/18 20:35 96 Room Air 21 07/14/18 20:35 Room Air 21 07/14/18 20:00 97.5 63 20 110/55 (73) 07/14/18 17:37 73 118/55 07/14/18 16:22 98.1 73 19 118/55 (76) 96 07/14/18 14:28 97 Room Air 21 07/14/18 14:28 88 18 Room Air 21 07/14/18 14:28 Room Air 21 07/14/18 12:00 98.6 74 20 125/62 (83) 99 07/14/18 12:00 97.9 87 19 141/76 (97) 98 Intake and Output 07/14/18 07/15/18 19:00 07:00 Intake Total 1370 ml 675 ml Output Total 800 ml 650 ml Balance 570 ml 25 ml Intake Oral 620 ml IV Total 750 ml 675 ml Output Urine Total 800 ml Other 650 ml Height (Feet): 5 Height (Inches): 10.00 Weight (Pounds): 180 General Appearance: no apparent distress Abdomen: soft Genitourinary/Rectal: other - supra pubic Objective no change Luis Chambers MD Jul 15, 2018 11:35
[2018-07-15 12:00] VITALS: BP 138/79
[2018-07-15] MEDS ORDERED: MEROPENEM1 GM IV (14:37)
--- NOTE | 2018-07-15 14:38 | Pulmonology Progress Note ---
Assessment/Plan Problems: (1) Bacteremia (2) Pulmonary HTN (3) Encephalopathy acute (4) Blind left eye (5) Suprapubic catheter (6) Anemia in chronic kidney disease (7) DKA (diabetic ketoacidoses) (8) HTN (hypertension) (9) Major depressive disorder Assessment/Plan iv abx, On Meropenem day 6 add Levemir 12 BID, ( was discharged on it last admission) BS still high sliding scale Urology f/u monitor BP dvt prophylaxis psychiatry f/u Subjective ROS Limited/Unobtainable: No Constitutional: Reports: no symptoms HEENT: Repors: no symptoms Allergies: Coded Allergies: CEFEPIME (Verified Allergy, Intermediate, Rash, 03/01/18) Tolerates Carbapenem Objective Last 24 Hour Vital Signs Date Time Temp Pulse Resp B/P (MAP) Pulse Ox O2 Delivery O2 Flow Rate FiO2 07/15/18 12:00 98.5 72 18 138/79 (98) 95 07/15/18 09:43 81 18 Room Air 21 07/15/18 09:43 Room Air 21 07/15/18 09:43 97 Room Air 21 07/15/18 09:00 Nasal Cannula 2.0 07/15/18 08:52 73 155/77 07/15/18 08:51 73 155/77 07/15/18 08:00 99.0 73 20 155/77 (103) 95 07/15/18 04:00 97.2 68 20 126/51 (76) 100 07/15/18 00:00 97.9 63 20 116/54 (74) 07/14/18 21:32 63 110/55 07/14/18 21:00 Nasal Cannula 2.0 07/14/18 20:35 79 18 Room Air 21 07/14/18 20:35 96 Room Air 21 07/14/18 20:35 Room Air 21 07/14/18 20:00 97.5 63 20 110/55 (73) 07/14/18 17:37 73 118/55 07/14/18 16:22 98.1 73 19 118/55 (76) 96 Intake and Output 07/14/18 07/15/18 19:00 07:00 Intake Total 1370 ml 675 ml Output Total 800 ml 650 ml Balance 570 ml 25 ml Intake Oral 620 ml IV Total 750 ml 675 ml Output Urine Total 800 ml Other 650 ml Objective General Appearance: WN HEENT: normocephalic, atraumatic Respiratory/Chest: chest wall non-tender, lungs clear Breasts: no masses Cardiovascular: normal peripheral pulses Abdomen: normal bowel sounds, soft, non tender Genitourinary: normal external genitalia Extremities: no clubbing Skin: no rash Current Medications Medications (Trade) Dose Ordered Sig/Dunia Route PRN Reason Start Time Stop Time Status Last Admin Dose Admin Acetaminophen (Tylenol) 650 mg Q6H PRN ORAL Mild Pain/Temp > 100.5 07/12/18 16:08 08/08/18 16:07 Amlodipine Besylate (Norvasc) 5 mg BID ORAL 07/12/18 18:00 08/08/18 08:59 07/15/18 08:51 Atorvastatin Calcium (Lipitor) 10 mg BEDTIME ORAL 07/12/18 21:00 08/07/18 20:59 07/14/18 21:28 Clonidine HCl (Catapres Tab) 0.1 mg Q4H PRN ORAL bp over 160 syst 07/12/18 16:08 08/07/18 16:07 Dextrose (Dextrose 50%) 25 ml Q30M PRN IV Hypoglycemia 07/12/18 16:09 08/07/18 16:08 Dextrose (Dextrose 50%) 50 ml Q30M PRN IV Hypoglycemia 07/12/18 16:09 08/07/18 16:08 Docusate Sodium (Colace) 100 mg TWICE A DAY ORAL 07/12/18 18:00 08/07/18 17:59 07/15/18 08:52 Duloxetine HCl (Cymbalta) 30 mg DAILY ORAL 07/13/18 09:00 08/08/18 08:59 07/15/18 08:51 Heparin Sodium (Porcine) (Heparin 5000 units/ml) 5,000 units EVERY 8 HOURS SUBQ 07/12/18 22:00 08/07/18 21:59 07/15/18 05:35 Insulin Aspart (NovoLOG) BEFORE MEALS AND HS SUBQ 07/12/18 16:30 08/07/18 20:59 07/15/18 11:58 Insulin Detemir (Levemir) 12 units BID SUBQ 07/14/18 18:00 08/13/18 17:59 07/15/18 08:59 Meropenem 500 mg/ Sodium Chloride 55 ml @ 110 mls/hr EVERY 12 HOURS IVPB 07/12/18 21:00 07/22/18 22:00 07/15/18 08:51 Metoprolol Succinate (Toprol XL) 50 mg Q12HR ORAL 07/12/18 21:00 08/07/18 20:59 07/15/18 08:52 Ondansetron HCl (Zofran) 4 mg Q6H PRN IVP Nausea & Vomiting 07/12/18 16:09 08/07/18 16:08 Pantoprazole (Protonix) 40 mg BID ORAL 07/12/18 18:00 08/07/18 16:29 07/15/18 08:51 Sevelamer Carbonate (Renvela) 800 mg THREE TIMES A DAY ORAL 07/12/18 18:00 08/07/18 17:59 07/15/18 08:51 Sodium Bicarbonate 50 ml/ Sodium Chloride 1,050 ml @ 75 mls/hr Q14H IV 07/12/18 16:13 08/10/18 16:12 07/14/18 23:51 Sodium Citrate (Bicitra) 30 ml EVERY 6 HOURS ORAL 07/12/18 18:00 08/07/18 17:59 07/15/18 11:59 Tamsulosin HCl (Flomax) 0.4 mg BID ORAL 07/12/18 18:00 08/07/18 17:59 07/15/18 08:52 Esdras Delgado MD Jul 15, 2018 14:38
[2018-07-15] MEDS: Sodium Bicarbonate 50 ML in NS 1000ml 1,000 ML IV SCH (15:06)
--- NOTE | 2018-07-15 15:51 | Discharge Summary ---
Discharge Summary Hospital Course Date of Admission Jul 08, 2018 at 13:06 Date of Discharge Admitting Diagnosis FEVER ,VOMITIG HPI Paul Urrutia is a 63 year old male who was admitted on Jul 08, 2018 at 13: 06 for Fever Vomiting Hospital Course Last 24 Hour Vital Signs Date Time Temp Pulse Resp B/P (MAP) Pulse Ox O2 Delivery O2 Flow Rate FiO2 07/15/18 12:00 98.5 72 18 138/79 (98) 95 07/15/18 09:43 81 18 Room Air 21 07/15/18 09:43 Room Air 21 07/15/18 09:43 97 Room Air 21 07/15/18 09:00 Nasal Cannula 2.0 07/15/18 08:52 73 155/77 07/15/18 08:51 73 155/77 07/15/18 08:00 99.0 73 20 155/77 (103) 95 07/15/18 04:00 97.2 68 20 126/51 (76) 100 07/15/18 00:00 97.9 63 20 116/54 (74) 07/14/18 21:32 63 110/55 07/14/18 21:00 Nasal Cannula 2.0 07/14/18 20:35 79 18 Room Air 21 07/14/18 20:35 96 Room Air 21 07/14/18 20:35 Room Air 21 07/14/18 20:00 97.5 63 20 110/55 (73) 07/14/18 17:37 73 118/55 07/14/18 16:22 98.1 73 19 118/55 (76) 96 GENERAL: The patient is awake and responsive, in no acute distress. HEAD AND NECK: Pupils are equal and reactive to light. Extraocular movements are intact in the right eye. Left eye blindness. Neck was supple. No JVD. LUNGS: Good air entry. No wheezing or rales. HEART: S1 and S2. Distant heart sounds. No gallops. ABDOMEN: Soft, nontender, and nontender. Suprapubic catheter intact. EXTREMITIES: No cyanosis or clubbing. Bilateral lower extremity no edema. NEUROLOGIC: Cranial nerves II through XII grossly intact. Motor is 5/5 in all extremities. Gait was not assessed due to the patient's status. Discharge Discharge Disposition Patient was discharged to Christopher Rosado MD Jul 15, 2018 15:51
[2018-07-15 16:00] VITALS: BP 129/65
--- NOTE | 2018-07-15 16:29 | General Progress Note ---
Assessment/Plan Problem List: (1) Type 1 diabetes mellitus ICD Codes: E10.9 - Type 1 diabetes mellitus without complications SNOMED: 87340737 (2) CKD (chronic kidney disease), stage III ICD Codes: N18.3 - CKD (chronic kidney disease), stage III SNOMED: 721092027 (3) Renal transplant recipient ICD Codes: Z94.0 - Renal transplant recipient SNOMED: 881020591 Assessment/Plan continue Levemir 12 units bid continue Novolog as is - not eating much going back to SNF today Subjective ROS Limited/Unobtainable: Yes Allergies: Coded Allergies: CEFEPIME (Verified Allergy, Intermediate, Rash, 03/01/18) Tolerates Carbapenem Subjective events noted Objective Last 24 Hour Vital Signs Date Time Temp Pulse Resp B/P (MAP) Pulse Ox O2 Delivery O2 Flow Rate FiO2 07/15/18 12:00 98.5 72 18 138/79 (98) 95 07/15/18 09:43 81 18 Room Air 21 07/15/18 09:43 Room Air 21 07/15/18 09:43 97 Room Air 21 07/15/18 09:00 Nasal Cannula 2.0 07/15/18 08:52 73 155/77 07/15/18 08:51 73 155/77 07/15/18 08:00 99.0 73 20 155/77 (103) 95 07/15/18 04:00 97.2 68 20 126/51 (76) 100 07/15/18 00:00 97.9 63 20 116/54 (74) 07/14/18 21:32 63 110/55 07/14/18 21:00 Nasal Cannula 2.0 07/14/18 20:35 79 18 Room Air 21 07/14/18 20:35 96 Room Air 21 07/14/18 20:35 Room Air 21 07/14/18 20:00 97.5 63 20 110/55 (73) 07/14/18 17:37 73 118/55 Intake and Output 07/14/18 07/15/18 19:00 07:00 Intake Total 1370 ml 675 ml Output Total 800 ml 650 ml Balance 570 ml 25 ml Intake Oral 620 ml IV Total 750 ml 675 ml Output Urine Total 800 ml Other 650 ml Height (Feet): 5 Height (Inches): 10.00 Weight (Pounds): 180 General Appearance: no apparent distress Neck: normal alignment Cardiovascular: normal rate Respiratory/Chest: decreased breath sounds Abdomen: normal bowel sounds Pelvis: normal external exam Objective Current Medications Medications (Trade) Dose Ordered Sig/Dunia Route PRN Reason Start Time Stop Time Status Last Admin Dose Admin Acetaminophen (Tylenol) 650 mg Q6H PRN ORAL Mild Pain/Temp > 100.5 07/12/18 16:08 08/08/18 16:07 Amlodipine Besylate (Norvasc) 5 mg BID ORAL 07/12/18 18:00 08/08/18 08:59 07/15/18 08:51 Atorvastatin Calcium (Lipitor) 10 mg BEDTIME ORAL 07/12/18 21:00 08/07/18 20:59 07/14/18 21:28 Clonidine HCl (Catapres Tab) 0.1 mg Q4H PRN ORAL bp over 160 syst 07/12/18 16:08 08/07/18 16:07 Dextrose (Dextrose 50%) 25 ml Q30M PRN IV Hypoglycemia 07/12/18 16:09 08/07/18 16:08 Dextrose (Dextrose 50%) 50 ml Q30M PRN IV Hypoglycemia 07/12/18 16:09 08/07/18 16:08 Docusate Sodium (Colace) 100 mg TWICE A DAY ORAL 07/12/18 18:00 08/07/18 17:59 07/15/18 08:52 Duloxetine HCl (Cymbalta) 30 mg DAILY ORAL 07/13/18 09:00 08/08/18 08:59 07/15/18 08:51 Heparin Sodium (Porcine) (Heparin 5000 units/ml) 5,000 units EVERY 8 HOURS SUBQ 07/12/18 22:00 08/07/18 21:59 07/15/18 15:06 Insulin Aspart (NovoLOG) BEFORE MEALS AND HS SUBQ 07/12/18 16:30 08/07/18 20:59 07/15/18 11:58 Insulin Detemir (Levemir) 12 units BID SUBQ 07/14/18 18:00 08/13/18 17:59 07/15/18 08:59 Meropenem 500 mg/ Sodium Chloride 55 ml @ 110 mls/hr EVERY 12 HOURS IVPB 07/12/18 21:00 07/22/18 22:00 07/15/18 08:51 Metoprolol Succinate (Toprol XL) 50 mg Q12HR ORAL 07/12/18 21:00 08/07/18 20:59 07/15/18 08:52 Ondansetron HCl (Zofran) 4 mg Q6H PRN IVP Nausea & Vomiting 07/12/18 16:09 08/07/18 16:08 Pantoprazole (Protonix) 40 mg BID ORAL 07/12/18 18:00 08/07/18 16:29 07/15/18 08:51 Sevelamer Carbonate (Renvela) 800 mg THREE TIMES A DAY ORAL 07/12/18 18:00 08/07/18 17:59 07/15/18 08:51 Sodium Bicarbonate 50 ml/ Sodium Chloride 1,050 ml @ 75 mls/hr Q14H IV 07/12/18 16:13 08/10/18 16:12 07/15/18 15:06 Sodium Citrate (Bicitra) 30 ml EVERY 6 HOURS ORAL 07/12/18 18:00 08/07/18 17:59 07/15/18 11:59 Tamsulosin HCl (Flomax) 0.4 mg BID ORAL 07/12/18 18:00 08/07/18 17:59 07/15/18 08:52 Item Value Date Time Bedside Blood Glucose 155 mg/dl H 07/15/18 1158 Bedside Blood Glucose 155 mg/dl H 07/15/18 1030 Bedside Blood Glucose 53 mg/dl L 07/15/18 0645 Bedside Blood Glucose Critically High Result 07/14/18 2100 Modesto Jacques MD Jul 15, 2018 16:29
--- NOTE | 2018-07-15 19:45 | Discharge Summary ---
DATE OF ADMISSION: 07/08/2018 DATE OF DISCHARGE: 07/15/2018 CHIEF COMPLAINT: Nausea, vomiting, fever, chills. HISTORY OF PRESENT ILLNESS: This 63 years old gentleman with past medical history significant for diabetes type 1 with ketoacidosis and without coma, history of hypertension, chronic kidney disease, failed kidney transplant, coronary artery disease, gastroesophageal reflux disease, atherosclerotic heart disease, BPH, dyslipidemia, history of left eye blindness, major depression, history of secondary hyperparathyroidism, status post of kidney as well as pancreatic transplant at [facility] in 1987 with worsening of renal allograft function with advanced chronic kidney disease, and history of bilateral nephrectomy as well, who presented to the hospital from nursing facility after he was noted to fever of 103 as well as nausea and vomiting. Shortly after initial evaluation, the patient was admitted to the hospital with sepsis, secondary to catheter-associated urinary tract infection. Throughout the hospital course, the patient was consulted with Dr. William Caputo from Infectious Disease, Dr. Luis Chambers from Nephrology, Dr. Fatmata Lu from Psychiatry, and Dr. Esdras Delgado from Pulmonary, Critical Care. Throughout the hospital course, the patient was noted to have sepsis, secondary to urinary tract infection with Gram-negative rods, continued on the meropenem antibiotic. The patient's status gradually improved and aggressive IV hydration and subsequently was discharged back to the nursing facility to be followed by as outpatient. FINAL DIAGNOSES: 1. Sepsis, secondary to the Gram-negative consuelo bacteremia and urinary tract infection. 2. Uncontrolled diabetes type 1. 3. Diabetic retinopathy with left eye blindness. 4. End-stage renal disease, status post failed kidney transplant. 5. Coronary artery disease with prior history of myocardial infarction. 6. Anemia of chronic kidney disease. 7. Metabolic acidosis. 8. Depression with prior history of suicidal attempts. MEDICATION ON DISCHARGE: Continue discharge medication list. ACTIVITY: As tolerated. DIET: Would be an 1800 ADA, cardiorenal diet. The patient will be transferred to nursing facility. Continue antibiotics meropenem for seven more days. Christopher Rosado M.D. DR: ADE JOB#: [id number] CC:
[2018-07-15 20:00] VITALS: BP 145/71
--- NOTE | 2018-07-15 22:13 | General Progress Note ---
Assessment/Plan Problem List: (1) Major depressive disorder ICD Codes: F32.9 - Major depressive disorder, single episode, unspecified SNOMED: 053892589 Status: unchanged Assessment/Plan cont Cymbalta 30mg qam provided ro/st Subjective Neurologic/Psychiatric: Reports: anxiety, depressed Allergies: Coded Allergies: CEFEPIME (Verified Allergy, Intermediate, Rash, 03/01/18) Tolerates Carbapenem Subjective the pt cont to be depressed no si fatigue in bed anhedonia no si Objective Last 24 Hour Vital Signs Date Time Temp Pulse Resp B/P (MAP) Pulse Ox O2 Delivery O2 Flow Rate FiO2 07/15/18 21:20 73 145/72 07/15/18 20:04 78 18 Room Air 21 07/15/18 20:04 Room Air 21 07/15/18 20:04 97 Room Air 21 07/15/18 18:26 75 129/65 07/15/18 16:00 98.0 75 18 129/65 (86) 95 07/15/18 12:00 98.5 72 18 138/79 (98) 95 07/15/18 09:43 81 18 Room Air 21 07/15/18 09:43 Room Air 21 07/15/18 09:43 97 Room Air 21 07/15/18 09:00 Nasal Cannula 2.0 07/15/18 08:52 73 155/77 07/15/18 08:51 73 155/77 07/15/18 08:00 99.0 73 20 155/77 (103) 95 07/15/18 04:00 97.2 68 20 126/51 (76) 100 07/15/18 00:00 97.9 63 20 116/54 (74) Intake and Output 07/14/18 07/15/18 18:59 06:59 Intake Total 1295 ml 750 ml Output Total 800 ml 650 ml Balance 495 ml 100 ml Intake Oral 620 ml IV Total 675 ml 750 ml Output Urine Total 800 ml Other 650 ml Height (Feet): 5 Height (Inches): 10.00 Weight (Pounds): 180 General Appearance: no apparent distress, alert Neurologic: oriented x 3, responsive, depressed affect Fatmata Lu MD Jul 15, 2018 22:13
[2018-07-16] VITALS: BP 145/85
[2018-07-16] MEDS: Sodium Citrate 30ml ORAL SCH ×5 (00:13→23:58)
[2018-07-16 04:00] VITALS: BP 160/84
[2018-07-16] MEDS: Sodium Bicarbonate 50 ML in NS 1000ml 1,000 ML IV SCH ×2 (04:37→17:09)
[2018-07-16] MEDS: Heparin 5000 units/ml inj SUBQ SCH ×3 (05:22→21:06)
[2018-07-16] MEDS: NovoLOG Insulin Flexpen SUBQ SCH ×4 (06:39→21:00)
[2018-07-16 08:00] VITALS: BP 144/88
[2018-07-16] MEDS: Metoprolol Succinate XL 50mg tab ORAL SCH ×2 (08:32→21:04)
[2018-07-16] MEDS: DULoxetine 30mg cap ORAL SCH (08:32)
[2018-07-16] MEDS: Docusate 100mg cap ORAL SCH ×2 (08:33→17:21)
[2018-07-16] MEDS: Renvela 800mg Pkt ORAL SCH ×3 (08:34→17:04)
[2018-07-16] MEDS: Meropenem 500 MG in NS 55 ML IVPB SCH ×2 (08:35→21:04)
[2018-07-16] MEDS: Tamsulosin 0.4mg cap ORAL SCH ×2 (08:35→17:03)
[2018-07-16] MEDS: Levemir Flexpen SUBQ SCH ×2 (08:38→17:08)
--- NOTE | 2018-07-16 09:09 | Infectious Diseases Prog Note ---
Assessment/Plan Assessment/Plan The patient is a 63-year-old male with: Urosepsis - Bacteremia (gram-negative rods). 07/08/18 UCx - P.a. MDR and Proteus - Patient clincally improving on Meropenem. No P.a. in the blood so I am not treating this specifically and am considering it a colonizer at this point 07/08/18 BCx Proteus and K. pneumo Sepsis. Fever, Leukocytosis PLAN: - Continue meropenem #02/22. End date 07/22/18 - Monitor CBC. - Monitor BMP. 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 Subjective Allergies: Coded Allergies: CEFEPIME (Verified Allergy, Intermediate, Rash, 03/01/18) Tolerates Carbapenem Subjective Afebrile No Leukocytosis Objective Vital Signs Last 24 Hour Vital Signs Date Time Temp Pulse Resp B/P (MAP) Pulse Ox O2 Delivery O2 Flow Rate FiO2 07/16/18 08:33 90 144/88 07/16/18 08:32 90 144/88 07/16/18 08:00 97.9 90 20 144/88 (106) 100 07/16/18 04:00 97.2 76 19 160/84 (109) 96 07/16/18 00:00 97.2 71 19 145/85 (105) 97 07/15/18 21:20 73 145/72 07/15/18 21:00 Nasal Cannula 2.0 07/15/18 20:04 78 18 Room Air 21 07/15/18 20:04 Room Air 21 07/15/18 20:04 97 Room Air 21 07/15/18 20:00 97.5 73 20 145/71 (95) 96 07/15/18 18:26 75 129/65 07/15/18 16:00 98.0 75 18 129/65 (86) 95 07/15/18 12:00 98.5 72 18 138/79 (98) 95 07/15/18 09:43 81 18 Room Air 21 07/15/18 09:43 Room Air 21 07/15/18 09:43 97 Room Air 21 Height (Feet): 5 Height (Inches): 10.00 Weight (Pounds): 180 Objective GEN: NAD, Satting well on NC HEENT: NCAT, MMM, EOMI CHEST: CTAB, No W. HEART: RRR, S1 and S2. ABDOMEN: Soft. Nontender. Suprapubic catheter in place. NEUROLOGIC: Awake A/O x 4. Current Medications Medications (Trade) Dose Ordered Sig/Dunia Route PRN Reason Start Time Stop Time Status Last Admin Dose Admin Acetaminophen (Tylenol) 650 mg Q6H PRN ORAL Mild Pain/Temp > 100.5 07/12/18 16:08 08/08/18 16:07 Amlodipine Besylate (Norvasc) 5 mg BID ORAL 07/12/18 18:00 08/08/18 08:59 07/16/18 08:33 Atorvastatin Calcium (Lipitor) 10 mg BEDTIME ORAL 07/12/18 21:00 08/07/18 20:59 07/15/18 21:20 Clonidine HCl (Catapres Tab) 0.1 mg Q4H PRN ORAL bp over 160 syst 07/12/18 16:08 08/07/18 16:07 Dextrose (Dextrose 50%) 25 ml Q30M PRN IV Hypoglycemia 07/12/18 16:09 08/07/18 16:08 Dextrose (Dextrose 50%) 50 ml Q30M PRN IV Hypoglycemia 07/12/18 16:09 08/07/18 16:08 Docusate Sodium (Colace) 100 mg TWICE A DAY ORAL 07/12/18 18:00 08/07/18 17:59 07/16/18 08:33 Duloxetine HCl (Cymbalta) 30 mg DAILY ORAL 07/13/18 09:00 08/08/18 08:59 07/16/18 08:32 Heparin Sodium (Porcine) (Heparin 5000 units/ml) 5,000 units EVERY 8 HOURS SUBQ 07/12/18 22:00 08/07/18 21:59 07/16/18 05:22 Insulin Aspart (NovoLOG) BEFORE MEALS AND HS SUBQ 07/12/18 16:30 08/07/18 20:59 07/16/18 06:39 Insulin Detemir (Levemir) 12 units BID SUBQ 07/14/18 18:00 08/13/18 17:59 07/16/18 08:38 Meropenem 500 mg/ Sodium Chloride 55 ml @ 110 mls/hr EVERY 12 HOURS IVPB 07/12/18 21:00 07/22/18 22:00 07/16/18 08:35 Metoprolol Succinate (Toprol XL) 50 mg Q12HR ORAL 07/12/18 21:00 08/07/18 20:59 07/16/18 08:32 Ondansetron HCl (Zofran) 4 mg Q6H PRN IVP Nausea & Vomiting 07/12/18 16:09 08/07/18 16:08 Pantoprazole (Protonix) 40 mg BID ORAL 07/12/18 18:00 08/07/18 16:29 07/16/18 08:32 Sevelamer Carbonate (Renvela) 800 mg THREE TIMES A DAY ORAL 07/12/18 18:00 08/07/18 17:59 07/16/18 08:34 Sodium Bicarbonate 50 ml/ Sodium Chloride 1,050 ml @ 75 mls/hr Q14H IV 07/12/18 16:13 08/10/18 16:12 07/16/18 04:37 Sodium Citrate (Bicitra) 30 ml EVERY 6 HOURS ORAL 07/12/18 18:00 08/07/18 17:59 07/16/18 05:17 Tamsulosin HCl (Flomax) 0.4 mg BID ORAL 07/12/18 18:00 08/07/18 17:59 07/16/18 08:35 William Caputo MD Jul 16, 2018 09:09
[2018-07-16 12:00] VITALS: BP 138/85
--- NOTE | 2018-07-16 13:09 | Pulmonology Progress Note ---
Assessment/Plan Problems: (1) Bacteremia (2) Pulmonary HTN (3) Encephalopathy acute (4) Blind left eye (5) Suprapubic catheter (6) Anemia in chronic kidney disease (7) DKA (diabetic ketoacidoses) (8) HTN (hypertension) (9) Major depressive disorder Assessment/Plan iv abx, On Meropenem day 6 add Levemir 12 BID, ( was discharged on it last admission) BS still high sliding scale Urology f/u monitor BP dvt prophylaxis psychiatry f/u dc planning Subjective ROS Limited/Unobtainable: No Constitutional: Reports: no symptoms HEENT: Repors: no symptoms Respiratory: Reports: no symptoms Allergies: Coded Allergies: CEFEPIME (Verified Allergy, Intermediate, Rash, 03/01/18) Tolerates Carbapenem Objective Last 24 Hour Vital Signs Date Time Temp Pulse Resp B/P (MAP) Pulse Ox O2 Delivery O2 Flow Rate FiO2 07/16/18 12:00 98.2 86 20 138/85 (102) 100 07/16/18 09:14 80 20 Room Air 21 07/16/18 09:00 Nasal Cannula 2.0 07/16/18 08:33 90 144/88 07/16/18 08:32 90 144/88 07/16/18 08:00 97.9 90 20 144/88 (106) 100 07/16/18 04:00 97.2 76 19 160/84 (109) 96 07/16/18 00:00 97.2 71 19 145/85 (105) 97 07/15/18 21:20 73 145/72 07/15/18 21:00 Nasal Cannula 2.0 07/15/18 20:04 78 18 Room Air 21 07/15/18 20:04 Room Air 21 07/15/18 20:04 97 Room Air 21 07/15/18 20:00 97.5 73 20 145/71 (95) 96 07/15/18 18:26 75 129/65 07/15/18 16:00 98.0 75 18 129/65 (86) 95 Intake and Output 07/15/18 07/16/18 19:00 07:00 Intake Total 620 ml 910 ml Output Total 800 ml 1050 ml Balance -180 ml -140 ml Intake Oral 620 ml 180 ml IV Total 730 ml Output Urine Total 800 ml 1050 ml # Voids 2 Objective General Appearance: WN HEENT: normocephalic, atraumatic Respiratory/Chest: chest wall non-tender, lungs clear Breasts: no masses Cardiovascular: normal peripheral pulses Abdomen: normal bowel sounds, soft, non tender Genitourinary: normal external genitalia Extremities: no clubbing Skin: no rash Current Medications Medications (Trade) Dose Ordered Sig/Dunia Route PRN Reason Start Time Stop Time Status Last Admin Dose Admin Acetaminophen (Tylenol) 650 mg Q6H PRN ORAL Mild Pain/Temp > 100.5 07/12/18 16:08 08/08/18 16:07 Amlodipine Besylate (Norvasc) 5 mg BID ORAL 07/12/18 18:00 08/08/18 08:59 07/16/18 08:33 Atorvastatin Calcium (Lipitor) 10 mg BEDTIME ORAL 07/12/18 21:00 08/07/18 20:59 07/15/18 21:20 Clonidine HCl (Catapres Tab) 0.1 mg Q4H PRN ORAL bp over 160 syst 07/12/18 16:08 08/07/18 16:07 Dextrose (Dextrose 50%) 25 ml Q30M PRN IV Hypoglycemia 07/12/18 16:09 08/07/18 16:08 Dextrose (Dextrose 50%) 50 ml Q30M PRN IV Hypoglycemia 07/12/18 16:09 08/07/18 16:08 Docusate Sodium (Colace) 100 mg TWICE A DAY ORAL 07/12/18 18:00 08/07/18 17:59 07/16/18 08:33 Duloxetine HCl (Cymbalta) 30 mg DAILY ORAL 07/13/18 09:00 08/08/18 08:59 07/16/18 08:32 Heparin Sodium (Porcine) (Heparin 5000 units/ml) 5,000 units EVERY 8 HOURS SUBQ 07/12/18 22:00 08/07/18 21:59 07/16/18 05:22 Insulin Aspart (NovoLOG) BEFORE MEALS AND HS SUBQ 07/12/18 16:30 08/07/18 20:59 07/16/18 12:06 Insulin Detemir (Levemir) 12 units BID SUBQ 07/14/18 18:00 08/13/18 17:59 07/16/18 08:38 Meropenem 500 mg/ Sodium Chloride 55 ml @ 110 mls/hr EVERY 12 HOURS IVPB 07/12/18 21:00 07/22/18 22:00 07/16/18 08:35 Metoprolol Succinate (Toprol XL) 50 mg Q12HR ORAL 07/12/18 21:00 08/07/18 20:59 07/16/18 08:32 Ondansetron HCl (Zofran) 4 mg Q6H PRN IVP Nausea & Vomiting 07/12/18 16:09 08/07/18 16:08 Pantoprazole (Protonix) 40 mg BID ORAL 07/12/18 18:00 08/07/18 16:29 07/16/18 08:32 Sevelamer Carbonate (Renvela) 800 mg THREE TIMES A DAY ORAL 07/12/18 18:00 08/07/18 17:59 07/16/18 08:34 Sodium Bicarbonate 50 ml/ Sodium Chloride 1,050 ml @ 75 mls/hr Q14H IV 07/12/18 16:13 08/10/18 16:12 07/16/18 04:37 Sodium Citrate (Bicitra) 30 ml EVERY 6 HOURS ORAL 07/12/18 18:00 08/07/18 17:59 07/16/18 12:08 Tamsulosin HCl (Flomax) 0.4 mg BID ORAL 07/12/18 18:00 08/07/18 17:59 07/16/18 08:35 Esdras Delgado MD Jul 16, 2018 13:09
--- NOTE | 2018-07-16 13:56 | Nephrology Progress Note ---
Assessment/Plan Problem List: (1) HTN (hypertension) (2) CKD (chronic kidney disease), stage III (3) Anemia in chronic kidney disease (4) Suprapubic catheter Assessment Sepsis Pneumonia HypoKalemia encephalopathy Anemia in chronic kidney disease Acute on chronic renal failure Cr rising Psychiatric disturbance Acidosis, metabolic UTI (urinary tract infection) Encephalopathy h/o Recurrent hematuria history of recurrent UTI Suprapubic catheter Neurogenic bladder BPH Status post renal pancreatic transplant h/o Elevated lipase Diabetes mellitus type 2 with hx of DKA Hypertension now low BP COPD/asthma Coronary artery disease with history of NSTEMI major depressive disorder with history of suicidal attempt Plan Cr unchanged patient offered dialysis REFUSING AGAIN adjust BP meds- Hydrate- slow add bicarb to IV PO Bicitra mag and KCL as needed BS check and adjustment antibiotics watch Hgb Gastric support patient DNR monitor renal parameters avoid nephrotoxics ? DC planning Subjective ROS Limited/Unobtainable: No Constitutional: Reports: malaise Objective Objective Last 24 Hour Vital Signs Date Time Temp Pulse Resp B/P (MAP) Pulse Ox O2 Delivery O2 Flow Rate FiO2 07/16/18 12:00 98.2 86 20 138/85 (102) 100 07/16/18 09:14 80 20 Room Air 21 07/16/18 09:00 Nasal Cannula 2.0 07/16/18 08:33 90 144/88 07/16/18 08:32 90 144/88 07/16/18 08:00 97.9 90 20 144/88 (106) 100 07/16/18 04:00 97.2 76 19 160/84 (109) 96 07/16/18 00:00 97.2 71 19 145/85 (105) 97 07/15/18 21:20 73 145/72 07/15/18 21:00 Nasal Cannula 2.0 07/15/18 20:04 78 18 Room Air 21 07/15/18 20:04 Room Air 21 07/15/18 20:04 97 Room Air 21 07/15/18 20:00 97.5 73 20 145/71 (95) 96 07/15/18 18:26 75 129/65 07/15/18 16:00 98.0 75 18 129/65 (86) 95 Intake and Output 07/15/18 07/16/18 19:00 07:00 Intake Total 620 ml 910 ml Output Total 800 ml 1050 ml Balance -180 ml -140 ml Intake Oral 620 ml 180 ml IV Total 730 ml Output Urine Total 800 ml 1050 ml # Voids 2 Height (Feet): 5 Height (Inches): 10.00 Weight (Pounds): 180 General Appearance: no apparent distress Objective no change Luis Chambers MD Jul 16, 2018 13:56
[2018-07-16 16:00] VITALS: BP 140/78
--- NOTE | 2018-07-16 17:11 | Internal Med Progress Note ---
Subjective Date of Service: Jul 16, 2018 Physician Name Jose Glasgow Attending Physician Christopher Rosado MD Current Medications Medications (Trade) Dose Ordered Sig/Dunia Route PRN Reason Start Time Stop Time Status Last Admin Dose Admin Acetaminophen (Tylenol) 650 mg Q6H PRN ORAL Mild Pain/Temp > 100.5 07/12/18 16:08 08/08/18 16:07 Amlodipine Besylate (Norvasc) 5 mg BID ORAL 07/12/18 18:00 08/08/18 08:59 07/16/18 17:04 Atorvastatin Calcium (Lipitor) 10 mg BEDTIME ORAL 07/12/18 21:00 08/07/18 20:59 07/15/18 21:20 Clonidine HCl (Catapres Tab) 0.1 mg Q4H PRN ORAL bp over 160 syst 07/12/18 16:08 08/07/18 16:07 Dextrose (Dextrose 50%) 25 ml Q30M PRN IV Hypoglycemia 07/12/18 16:09 08/07/18 16:08 Dextrose (Dextrose 50%) 50 ml Q30M PRN IV Hypoglycemia 07/12/18 16:09 08/07/18 16:08 Docusate Sodium (Colace) 100 mg TWICE A DAY ORAL 07/12/18 18:00 08/07/18 17:59 07/16/18 08:33 Duloxetine HCl (Cymbalta) 30 mg DAILY ORAL 07/13/18 09:00 08/08/18 08:59 07/16/18 08:32 Heparin Sodium (Porcine) (Heparin 5000 units/ml) 5,000 units EVERY 8 HOURS SUBQ 07/12/18 22:00 08/07/18 21:59 07/16/18 13:33 Insulin Aspart (NovoLOG) BEFORE MEALS AND HS SUBQ 07/12/18 16:30 08/07/18 20:59 07/16/18 17:07 Insulin Detemir (Levemir) 12 units BID SUBQ 07/14/18 18:00 08/13/18 17:59 07/16/18 17:08 Meropenem 500 mg/ Sodium Chloride 55 ml @ 110 mls/hr EVERY 12 HOURS IVPB 07/12/18 21:00 07/22/18 22:00 07/16/18 08:35 Metoprolol Succinate (Toprol XL) 50 mg Q12HR ORAL 07/12/18 21:00 08/07/18 20:59 07/16/18 08:32 Ondansetron HCl (Zofran) 4 mg Q6H PRN IVP Nausea & Vomiting 07/12/18 16:09 08/07/18 16:08 Pantoprazole (Protonix) 40 mg BID ORAL 07/12/18 18:00 08/07/18 16:29 07/16/18 17:03 Sevelamer Carbonate (Renvela) 800 mg THREE TIMES A DAY ORAL 07/12/18 18:00 08/07/18 17:59 07/16/18 17:04 Sodium Bicarbonate 50 ml/ Sodium Chloride 1,050 ml @ 75 mls/hr Q14H IV 07/12/18 16:13 08/10/18 16:12 07/16/18 17:09 Sodium Citrate (Bicitra) 30 ml EVERY 6 HOURS ORAL 07/12/18 18:00 08/07/18 17:59 07/16/18 17:05 Tamsulosin HCl (Flomax) 0.4 mg BID ORAL 07/12/18 18:00 08/07/18 17:59 07/16/18 17:03 Allergies: Coded Allergies: CEFEPIME (Verified Allergy, Intermediate, Rash, 03/01/18) Tolerates Carbapenem ROS Limited/Unobtainable: No Constitutional: Reports: no symptoms HEENT: Reports: no symptoms Cardiovascular: Reports: no symptoms Respiratory: Reports: no symptoms Gastrointestinal/Abdominal: Reports: no symptoms Genitourinary: Reports: no symptoms Neurologic/Psychiatric: Reports: no symptoms Subjective 63 YO M admitted with dehydration and hypotension. Now sepsis and urinary tract infection. Cover for Sotero Jay-Dr Rosado. Objective Last Vital Signs Date Time Temp Pulse Resp B/P (MAP) Pulse Ox O2 Delivery O2 Flow Rate FiO2 07/16/18 17:04 86 138/85 07/16/18 12:00 98.2 20 100 07/16/18 09:14 Room Air 21 07/16/18 09:00 2.0 Laboratory Tests Test 07/16/18 14:45 C-Reactive Protein, Quantitative 1.3 mg/dL (0.00-0.90) H Intake and Output 07/15/18 07/16/18 19:00 07:00 Intake Total 620 ml 910 ml Output Total 800 ml 1050 ml Balance -180 ml -140 ml Intake Oral 620 ml 180 ml IV Total 730 ml Output Urine Total 800 ml 1050 ml # Voids 2 Objective PHYSICAL EXAMINATION: GENERAL: The patient is awake and responsive, in no acute distress. HEAD AND NECK: Pupils are equal and reactive to light. Extraocular movements are intact in the right eye. 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 Neck was supple. No JVD. LUNGS: Good air entry. No wheezing or rales. HEART: S1 and S2. Distant heart sounds. No gallops. ABDOMEN: Soft, nontender, and nontender. Suprapubic catheter was noted. EXTREMITIES: No cyanosis or clubbing. Bilateral lower extremity +2 edema. NEUROLOGIC: Cranial nerves II through XII grossly intact. Motor is 5/5 in all extremities. Gait was not assessed due to the patient's status. Assessment/Plan Assessment/Plan ASSESSMENT: 1. Sepsis(Proteus-ESBL and klebsiella) secondary to catheter associated urinary tract infection (providencia and pseudamonas-MDR), present on admission. Continue meropenem per ID 2. Hypertension. 3. Dyslipidemia. 4. Uncontrolled Diabetes type 1 with prior history of diabetic ketoacidosis. 5. Diabetic retinopathy of the left eye blindness. 6. End-stage renal disease secondary to diabetic nephrosclerosis. 7. Coronary artery disease with prior history of myocardial infarction. 8. 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 9. 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 10. Secondary hyperparathyroidism with vitamin D deficiency. 11. Anemia of chronic kidney disease. 12. Metabolic acidosis. 13. Depression with prior suicide attempt. PLAN: 1. Admit the patient to telemetry. 2. Code status is DNR/DNI as per POLST in the chart. 3. Resume mcc medications. 4. Follow up with culture. 5. Broad spectrum antibiotic with meropenem. 6. DVT prophylaxis, heparin subcutaneous. 7. We will follow up with Dr. Chambers from Nephrology and Dr. Rich Wick from Infectious Disease. 8. We will follow up with the cultures and laboratory in the morning. 9. Accu-Chek with sliding scale. 10. Add levemir BID 11. Info faxed to [facility] Jose Glasgow MD Jul 16, 2018 17:11
[2018-07-16 20:00] VITALS: BP 145/79
[2018-07-16] MEDS ORDERED: Tubing IV Secondary IV ONE (22:41)
[2018-07-16] MEDS ORDERED: NS 500ML ONE (22:41)
[2018-07-17] VITALS: BP 138/74
[2018-07-17 04:00] VITALS: BP 136/82
[2018-07-17] MEDS: Sodium Citrate 30ml ORAL SCH ×2 (05:42→11:37)
[2018-07-17] MEDS: NovoLOG Insulin Flexpen SUBQ SCH ×2 (05:44→11:39)
[2018-07-17] MEDS: Heparin 5000 units/ml inj SUBQ SCH ×2 (05:44→14:00)
[2018-07-17 08:00] VITALS: BP 137/97
[2018-07-17] MEDS: Sodium Bicarbonate 50 ML in NS 1000ml 1,000 ML IV SCH (08:13)
[2018-07-17] MEDS: Renvela 800mg Pkt ORAL SCH ×2 (08:45→12:21)
[2018-07-17] MEDS: DULoxetine 30mg cap ORAL SCH (08:45)
[2018-07-17] MEDS: Metoprolol Succinate XL 50mg tab ORAL SCH (08:45)
[2018-07-17] MEDS: Tamsulosin 0.4mg cap ORAL SCH (08:45)
[2018-07-17] MEDS: Meropenem 500 MG in NS 55 ML IVPB SCH (08:46)
[2018-07-17] MEDS: Levemir Flexpen SUBQ SCH (08:47)
[2018-07-17] MEDS: Docusate 100mg cap ORAL SCH (08:48)
--- NOTE | 2018-07-17 10:46 | Nephrology Progress Note ---
Assessment/Plan Problem List: (1) HTN (hypertension) (2) CKD (chronic kidney disease), stage III (3) Anemia in chronic kidney disease (4) Suprapubic catheter Assessment Sepsis Pneumonia HypoKalemia encephalopathy Anemia in chronic kidney disease Acute on chronic renal failure Cr rising Psychiatric disturbance Acidosis, metabolic UTI (urinary tract infection) Encephalopathy h/o Recurrent hematuria history of recurrent UTI Suprapubic catheter Neurogenic bladder BPH Status post renal pancreatic transplant h/o Elevated lipase Diabetes mellitus type 2 with hx of DKA Hypertension now low BP COPD/asthma Coronary artery disease with history of NSTEMI major depressive disorder with history of suicidal attempt Plan labs of 07/17 not done / refused patient offered dialysis REFUSING AGAIN adjust BP meds- Hydrate- slow add bicarb to IV PO Bicitra mag and KCL as needed BS check and adjustment antibiotics watch Hgb Gastric support patient DNR monitor renal parameters avoid nephrotoxics ? DC planning Subjective ROS Limited/Unobtainable: No Constitutional: Reports: malaise Objective Objective Last 24 Hour Vital Signs Date Time Temp Pulse Resp B/P (MAP) Pulse Ox O2 Delivery O2 Flow Rate FiO2 07/17/18 09:00 Nasal Cannula 2.0 07/17/18 08:45 91 137/97 07/17/18 08:45 91 137/97 07/17/18 08:15 77 18 Room Air 21 07/17/18 08:00 98.4 91 18 137/97 (110) 98 07/17/18 04:00 97.8 88 16 136/82 (100) 95 07/17/18 00:00 97.6 77 17 138/74 (95) 94 07/16/18 23:52 86 20 Room Air 21 07/16/18 21:04 85 145/79 07/16/18 21:00 Nasal Cannula 2.0 07/16/18 20:00 97.7 85 16 145/79 (101) 94 07/16/18 17:04 86 138/85 07/16/18 16:00 98.0 80 20 140/78 (98) 100 07/16/18 12:00 98.2 86 20 138/85 (102) 100 Intake and Output 07/16/18 07/17/18 19:00 07:00 Intake Total 1100 ml 1305 ml Output Total 1650 ml 1200 ml Balance -550 ml 105 ml Intake Oral 240 ml 480 ml IV Total 860 ml 825 ml Output Urine Total 1650 ml 1200 ml # Voids 1 # Bowel Movements 1 1 Laboratory Tests 07/16/18 14:45: C-Reactive Protein, Quantitative 1.3H Height (Feet): 5 Height (Inches): 10.00 Weight (Pounds): 180 General Appearance: no apparent distress Abdomen: soft Objective no change Luis Chambers MD Jul 17, 2018 10:46
[2018-07-17 12:00] VITALS: BP 177/93
--- NOTE | 2018-07-17 12:50 | General Progress Note ---
Assessment/Plan Problem List: (1) Type 1 diabetes mellitus ICD Codes: E10.9 - Type 1 diabetes mellitus without complications SNOMED: 65798941 (2) CKD (chronic kidney disease), stage III ICD Codes: N18.3 - CKD (chronic kidney disease), stage III SNOMED: 472820064 (3) Renal transplant recipient ICD Codes: Z94.0 - Renal transplant recipient SNOMED: 506091559 Assessment/Plan continue Levemir 12 units bid add Novolog 4 units ac tid continue NISS ac / hs Subjective Allergies: Coded Allergies: CEFEPIME (Verified Allergy, Intermediate, Rash, 03/01/18) Tolerates Carbapenem All Systems: reviewed and negative except above Subjective events noted Objective Last 24 Hour Vital Signs Date Time Temp Pulse Resp B/P (MAP) Pulse Ox O2 Delivery O2 Flow Rate FiO2 07/17/18 12:21 177/93 07/17/18 12:00 97.3 80 20 177/93 (121) 98 07/17/18 09:00 Nasal Cannula 2.0 07/17/18 08:45 91 137/97 07/17/18 08:45 91 137/97 07/17/18 08:15 77 18 Room Air 21 07/17/18 08:00 98.4 91 18 137/97 (110) 98 07/17/18 04:00 97.8 88 16 136/82 (100) 95 07/17/18 00:00 97.6 77 17 138/74 (95) 94 07/16/18 23:52 86 20 Room Air 21 07/16/18 21:04 85 145/79 07/16/18 21:00 Nasal Cannula 2.0 07/16/18 20:00 97.7 85 16 145/79 (101) 94 07/16/18 17:04 86 138/85 07/16/18 16:00 98.0 80 20 140/78 (98) 100 Intake and Output 07/16/18 07/17/18 19:00 07:00 Intake Total 1100 ml 1305 ml Output Total 1650 ml 1200 ml Balance -550 ml 105 ml Intake Oral 240 ml 480 ml IV Total 860 ml 825 ml Output Urine Total 1650 ml 1200 ml # Voids 1 # Bowel Movements 1 1 Laboratory Tests 07/16/18 14:45: C-Reactive Protein, Quantitative 1.3H Height (Feet): 5 Height (Inches): 10.00 Weight (Pounds): 180 General Appearance: no apparent distress Neck: normal alignment Cardiovascular: normal rate Respiratory/Chest: lungs clear Abdomen: normal bowel sounds Objective Current Medications Medications (Trade) Dose Ordered Sig/Dunia Route PRN Reason Start Time Stop Time Status Last Admin Dose Admin Acetaminophen (Tylenol) 650 mg Q6H PRN ORAL Mild Pain/Temp > 100.5 07/12/18 16:08 08/08/18 16:07 Amlodipine Besylate (Norvasc) 5 mg BID ORAL 07/12/18 18:00 08/08/18 08:59 07/17/18 08:45 Atorvastatin Calcium (Lipitor) 10 mg BEDTIME ORAL 07/12/18 21:00 08/07/18 20:59 07/16/18 21:04 Clonidine HCl (Catapres Tab) 0.1 mg Q4H PRN ORAL bp over 160 syst 07/12/18 16:08 08/07/18 16:07 07/17/18 12:21 Dextrose (Dextrose 50%) 25 ml Q30M PRN IV Hypoglycemia 07/12/18 16:09 08/07/18 16:08 Dextrose (Dextrose 50%) 50 ml Q30M PRN IV Hypoglycemia 07/12/18 16:09 08/07/18 16:08 Docusate Sodium (Colace) 100 mg TWICE A DAY ORAL 07/12/18 18:00 08/07/18 17:59 07/16/18 08:33 Duloxetine HCl (Cymbalta) 30 mg DAILY ORAL 07/13/18 09:00 08/08/18 08:59 07/17/18 08:45 Heparin Sodium (Porcine) (Heparin 5000 units/ml) 5,000 units EVERY 8 HOURS SUBQ 07/12/18 22:00 08/07/18 21:59 07/17/18 05:44 Insulin Aspart (NovoLOG) BEFORE MEALS AND HS SUBQ 07/12/18 16:30 08/07/18 20:59 07/17/18 11:39 Insulin Detemir (Levemir) 12 units BID SUBQ 07/14/18 18:00 08/13/18 17:59 07/17/18 08:47 Meropenem 500 mg/ Sodium Chloride 55 ml @ 110 mls/hr EVERY 12 HOURS IVPB 07/12/18 21:00 07/22/18 22:00 07/17/18 08:46 Metoprolol Succinate (Toprol XL) 50 mg Q12HR ORAL 07/12/18 21:00 08/07/18 20:59 07/17/18 08:45 Ondansetron HCl (Zofran) 4 mg Q6H PRN IVP Nausea & Vomiting 07/12/18 16:09 08/07/18 16:08 Pantoprazole (Protonix) 40 mg BID ORAL 07/12/18 18:00 08/07/18 16:29 07/17/18 08:45 Sevelamer Carbonate (Renvela) 800 mg THREE TIMES A DAY ORAL 07/12/18 18:00 08/07/18 17:59 07/17/18 12:21 Sodium Bicarbonate 50 ml/ Sodium Chloride 1,050 ml @ 75 mls/hr Q14H IV 07/12/18 16:13 08/10/18 16:12 07/17/18 08:13 Sodium Citrate (Bicitra) 30 ml EVERY 6 HOURS ORAL 07/12/18 18:00 08/07/18 17:59 07/17/18 11:37 Tamsulosin HCl (Flomax) 0.4 mg BID ORAL 07/12/18 18:00 08/07/18 17:59 07/17/18 08:45 Item Value Date Time Bedside Blood Glucose 177 mg/dl H 07/17/18 1139 Bedside Blood Glucose 400 mg/dl H 07/17/18 0847 Bedside Blood Glucose 400 mg/dl H 07/17/18 0544 Bedside Blood Glucose 95 mg/dl 07/16/18 2100 [place] Jacques MD Jul 17, 2018 12:50
[2018-07-17 13:04] VITALS: BP 144/71
--- NOTE | 2018-07-17 13:34 | Internal Med Progress Note ---
Subjective Date of Service: Jul 17, 2018 Physician Name Jose Glasgow Attending Physician Christopher Rosado MD Current Medications Medications (Trade) Dose Ordered Sig/Dunia Route PRN Reason Start Time Stop Time Status Last Admin Dose Admin Acetaminophen (Tylenol) 650 mg Q6H PRN ORAL Mild Pain/Temp > 100.5 07/12/18 16:08 08/08/18 16:07 Amlodipine Besylate (Norvasc) 5 mg BID ORAL 07/12/18 18:00 08/08/18 08:59 07/17/18 08:45 Atorvastatin Calcium (Lipitor) 10 mg BEDTIME ORAL 07/12/18 21:00 08/07/18 20:59 07/16/18 21:04 Clonidine HCl (Catapres Tab) 0.1 mg Q4H PRN ORAL bp over 160 syst 07/12/18 16:08 08/07/18 16:07 07/17/18 12:21 Dextrose (Dextrose 50%) 25 ml Q30M PRN IV Hypoglycemia 07/17/18 13:00 08/16/18 12:59 Dextrose (Dextrose 50%) 50 ml Q30M PRN IV Hypoglycemia 07/17/18 13:00 08/16/18 12:59 Docusate Sodium (Colace) 100 mg TWICE A DAY ORAL 07/12/18 18:00 08/07/18 17:59 07/16/18 08:33 Duloxetine HCl (Cymbalta) 30 mg DAILY ORAL 07/13/18 09:00 08/08/18 08:59 07/17/18 08:45 Heparin Sodium (Porcine) (Heparin 5000 units/ml) 5,000 units EVERY 8 HOURS SUBQ 07/12/18 22:00 08/07/18 21:59 07/17/18 05:44 Insulin Aspart (NovoLOG) BEFORE MEALS AND HS SUBQ 07/12/18 16:30 08/07/18 20:59 07/17/18 11:39 Insulin Aspart (NovoLOG) 4 units NOVOTIAC SUBQ 07/17/18 16:50 08/16/18 16:49 Insulin Detemir (Levemir) 12 units BID SUBQ 07/14/18 18:00 08/13/18 17:59 07/17/18 08:47 Meropenem 500 mg/ Sodium Chloride 55 ml @ 110 mls/hr EVERY 12 HOURS IVPB 07/12/18 21:00 07/22/18 22:00 07/17/18 08:46 Metoprolol Succinate (Toprol XL) 50 mg Q12HR ORAL 07/12/18 21:00 08/07/18 20:59 07/17/18 08:45 Ondansetron HCl (Zofran) 4 mg Q6H PRN IVP Nausea & Vomiting 07/12/18 16:09 08/07/18 16:08 Pantoprazole (Protonix) 40 mg BID ORAL 07/12/18 18:00 08/07/18 16:29 07/17/18 08:45 Sevelamer Carbonate (Renvela) 800 mg THREE TIMES A DAY ORAL 07/12/18 18:00 08/07/18 17:59 07/17/18 12:21 Sodium Bicarbonate 50 ml/ Sodium Chloride 1,050 ml @ 75 mls/hr Q14H IV 07/12/18 16:13 08/10/18 16:12 07/17/18 08:13 Sodium Citrate (Bicitra) 30 ml EVERY 6 HOURS ORAL 07/12/18 18:00 08/07/18 17:59 07/17/18 11:37 Tamsulosin HCl (Flomax) 0.4 mg BID ORAL 07/12/18 18:00 08/07/18 17:59 07/17/18 08:45 Allergies: Coded Allergies: CEFEPIME (Verified Allergy, Intermediate, Rash, 03/01/18) Tolerates Carbapenem ROS Limited/Unobtainable: No Constitutional: Reports: no symptoms HEENT: Reports: no symptoms Cardiovascular: Reports: no symptoms Respiratory: Reports: no symptoms Gastrointestinal/Abdominal: Reports: no symptoms Genitourinary: Reports: no symptoms Neurologic/Psychiatric: Reports: no symptoms Subjective 63 YO M admitted with dehydration and hypotension. Now sepsis and urinary tract infection. Cover for Int Pierre-Dr Rosado. Leaking suprapubic cath per staff Objective Last Vital Signs Date Time Temp Pulse Resp B/P (MAP) Pulse Ox O2 Delivery O2 Flow Rate FiO2 07/17/18 13:04 144/71 (95) 07/17/18 12:00 97.3 80 20 98 07/17/18 09:00 Nasal Cannula 2.0 07/17/18 08:15 21 Laboratory Tests Test 07/16/18 14:45 C-Reactive Protein, Quantitative 1.3 mg/dL (0.00-0.90) H Intake and Output 07/16/18 07/17/18 19:00 07:00 Intake Total 1100 ml 1305 ml Output Total 1650 ml 1200 ml Balance -550 ml 105 ml Intake Oral 240 ml 480 ml IV Total 860 ml 825 ml Output Urine Total 1650 ml 1200 ml # Voids 1 # Bowel Movements 1 1 Objective PHYSICAL EXAMINATION: GENERAL: The patient is awake and responsive, in no acute distress. HEAD AND NECK: Pupils are equal and reactive to light. Extraocular movements are intact in the right eye. 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 Neck was supple. No JVD. LUNGS: Good air entry. No wheezing or rales. HEART: S1 and S2. Distant heart sounds. No gallops. ABDOMEN: Soft, nontender, and nontender. Suprapubic catheter was noted. EXTREMITIES: No cyanosis or clubbing. Bilateral lower extremity +2 edema. NEUROLOGIC: Cranial nerves II through XII grossly intact. Motor is 5/5 in all extremities. Gait was not assessed due to the patient's status. Assessment/Plan Assessment/Plan ASSESSMENT: 1. Sepsis(Proteus-ESBL and klebsiella) secondary to catheter associated urinary tract infection (providencia and pseudamonas-MDR), present on admission. Continue meropenem per ID 2. Hypertension. 3. Dyslipidemia. 4. Uncontrolled Diabetes type 1 with prior history of diabetic ketoacidosis. 5. Diabetic retinopathy of the left eye blindness. 6. End-stage renal disease secondary to diabetic nephrosclerosis. 7. Coronary artery disease with prior history of myocardial infarction. 8. 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 9. 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 10. Secondary hyperparathyroidism with vitamin D deficiency. 11. Anemia of chronic kidney disease. 12. Metabolic acidosis. 13. Depression with prior suicide attempt. 14. leaking suprapubic cath bag 15. Discharge planning PLAN: 1. Admit the patient to telemetry. 2. Code status is DNR/DNI as per POLST in the chart. 3. Resume [facility] medications. 4. Follow up with culture. 5. Broad spectrum antibiotic with meropenem. 6. DVT prophylaxis, heparin subcutaneous. 7. We will follow up with Dr. Chambers from Nephrology and Dr. Rich Wick from Infectious Disease. 8. We will follow up with the cultures and laboratory in the morning. 9. Accu-Chek with sliding scale. 10. Add levemir BID 11. Info faxed to [facility] 12. Urology-Dr Rios to eval suprapubic cath Jose Glasgow MD Jul 17, 2018 13:34
--- NOTE | 2018-07-17 15:54 | Pulmonology Progress Note ---
Assessment/Plan Problems: (1) Bacteremia (2) Pulmonary HTN (3) Encephalopathy acute (4) Blind left eye (5) Suprapubic catheter (6) Anemia in chronic kidney disease (7) DKA (diabetic ketoacidoses) (8) HTN (hypertension) (9) Major depressive disorder Assessment/Plan iv abx, On Meropenem day 6 add Levemir 12 BID, ( was discharged on it last admission) BS still high sliding scale Urology f/u monitor BP dvt prophylaxis psychiatry f/u dc planning Subjective Allergies: Coded Allergies: CEFEPIME (Verified Allergy, Intermediate, Rash, 03/01/18) Tolerates Carbapenem Objective Last 24 Hour Vital Signs Date Time Temp Pulse Resp B/P (MAP) Pulse Ox O2 Delivery O2 Flow Rate FiO2 07/17/18 13:04 144/71 (95) 07/17/18 12:21 177/93 07/17/18 12:00 97.3 80 20 177/93 (121) 98 07/17/18 09:00 Nasal Cannula 2.0 07/17/18 08:45 91 137/97 07/17/18 08:45 91 137/97 07/17/18 08:15 77 18 Room Air 21 07/17/18 08:00 98.4 91 18 137/97 (110) 98 07/17/18 04:00 97.8 88 16 136/82 (100) 95 07/17/18 00:00 97.6 77 17 138/74 (95) 94 07/16/18 23:52 86 20 Room Air 21 07/16/18 21:04 85 145/79 07/16/18 21:00 Nasal Cannula 2.0 07/16/18 20:00 97.7 85 16 145/79 (101) 94 07/16/18 17:04 86 138/85 07/16/18 16:00 98.0 80 20 140/78 (98) 100 Intake and Output 07/16/18 07/17/18 19:00 07:00 Intake Total 1100 ml 1305 ml Output Total 1650 ml 1200 ml Balance -550 ml 105 ml Intake Oral 240 ml 480 ml IV Total 860 ml 825 ml Output Urine Total 1650 ml 1200 ml # Voids 1 # Bowel Movements 1 1 Objective General Appearance: WN HEENT: normocephalic, atraumatic Respiratory/Chest: chest wall non-tender, lungs clear Breasts: no masses Cardiovascular: normal peripheral pulses Abdomen: normal bowel sounds, soft, non tender Genitourinary: normal external genitalia Extremities: no clubbing Skin: no rash Current Medications Medications (Trade) Dose Ordered Sig/Dunia Route PRN Reason Start Time Stop Time Status Last Admin Dose Admin Acetaminophen (Tylenol) 650 mg Q6H PRN ORAL Mild Pain/Temp > 100.5 07/12/18 16:08 08/08/18 16:07 Amlodipine Besylate (Norvasc) 5 mg BID ORAL 07/12/18 18:00 08/08/18 08:59 07/17/18 08:45 Atorvastatin Calcium (Lipitor) 10 mg BEDTIME ORAL 07/12/18 21:00 08/07/18 20:59 07/16/18 21:04 Clonidine HCl (Catapres Tab) 0.1 mg Q4H PRN ORAL bp over 160 syst 07/12/18 16:08 08/07/18 16:07 07/17/18 12:21 Dextrose (Dextrose 50%) 25 ml Q30M PRN IV Hypoglycemia 07/17/18 13:00 08/16/18 12:59 Dextrose (Dextrose 50%) 50 ml Q30M PRN IV Hypoglycemia 07/17/18 13:00 08/16/18 12:59 Docusate Sodium (Colace) 100 mg TWICE A DAY ORAL 07/12/18 18:00 08/07/18 17:59 07/16/18 08:33 Duloxetine HCl (Cymbalta) 30 mg DAILY ORAL 07/13/18 09:00 08/08/18 08:59 07/17/18 08:45 Heparin Sodium (Porcine) (Heparin 5000 units/ml) 5,000 units EVERY 8 HOURS SUBQ 07/12/18 22:00 08/07/18 21:59 07/17/18 05:44 Insulin Aspart (NovoLOG) BEFORE MEALS AND HS SUBQ 07/12/18 16:30 08/07/18 20:59 07/17/18 11:39 Insulin Aspart (NovoLOG) 4 units NOVOTIAC SUBQ 07/17/18 16:50 08/16/18 16:49 Insulin Detemir (Levemir) 12 units BID SUBQ 07/14/18 18:00 08/13/18 17:59 07/17/18 08:47 Meropenem 500 mg/ Sodium Chloride 55 ml @ 110 mls/hr EVERY 12 HOURS IVPB 07/12/18 21:00 07/22/18 22:00 07/17/18 08:46 Metoprolol Succinate (Toprol XL) 50 mg Q12HR ORAL 07/12/18 21:00 08/07/18 20:59 07/17/18 08:45 Ondansetron HCl (Zofran) 4 mg Q6H PRN IVP Nausea & Vomiting 07/12/18 16:09 08/07/18 16:08 Pantoprazole (Protonix) 40 mg BID ORAL 07/12/18 18:00 08/07/18 16:29 07/17/18 08:45 Sevelamer Carbonate (Renvela) 800 mg THREE TIMES A DAY ORAL 07/12/18 18:00 08/07/18 17:59 07/17/18 12:21 Sodium Bicarbonate 50 ml/ Sodium Chloride 1,050 ml @ 75 mls/hr Q14H IV 07/12/18 16:13 08/10/18 16:12 07/17/18 08:13 Sodium Citrate (Bicitra) 30 ml EVERY 6 HOURS ORAL 07/12/18 18:00 08/07/18 17:59 07/17/18 11:37 Tamsulosin HCl (Flomax) 0.4 mg BID ORAL 07/12/18 18:00 08/07/18 17:59 07/17/18 08:45 Esdras Delgado MD Jul 17, 2018 15:54
--- NOTE | 2018-07-17 16:00 | Consultation ---
DATE OF CONSULTATION: 07/17/2018 CONSULTING PHYSICIAN: Ye Rios M.D. REFERRING PHYSICIAN: Jose Glasgow M.D. REASON FOR CONSULTATION: Evaluation of leaking suprapubic tube. HISTORY OF PRESENT ILLNESS: This is a 63-year-old male. He is known to me from previous evaluations. The patient has a history of BPH, neurogenic bladder, chronic suprapubic tube. He has a history of end-stage renal disease. He has a history of kidney transplant which has failed and he has elevated creatinine. He was originally admitted to the hospital because of fevers, chills, nausea and vomiting. He has had an extended hospital stay. He was noted to have urinary tract infection. He has been on antibiotics. He has a suprapubic tube in place that has been leaking. Urology evaluation requested. PAST MEDICAL HISTORY: Significant for above also history of diabetes, hypertension, hyperparathyroidism, chronic kidney disease, BPH, depression, left eye blindness. PAST SURGICAL HISTORY: He has had bilateral gambell nephrectomies, renal transplant, suprapubic tube. Other surgeries are unknown. CURRENT MEDICATIONS: In the hospital, the patient is on insulin, Cymbalta, heparin, meropenem, Lipitor, Toprol, Norvasc, Colace, Protonix, Renvela, Bicitra, Flomax, Catapres. ALLERGIES: Cefepime. SOCIAL HISTORY: [facility]. FAMILY HISTORY: Noncontributory. REVIEW OF SYSTEMS: No chest pain. PHYSICAL EXAMINATION: GENERAL: Elderly male, in no acute distress. VITAL SIGNS: Temperature is 97.3, blood pressure 144/71, pulse 80, respirations 20. HEENT: Normocephalic. NECK: Supple. ABDOMEN: Soft. A well-healed scars. A 18-Bahamian suprapubic tube in place. EXTREMITIES: No clubbing or cyanosis. LABORATORY DATA: Admit UA showed 3+ leukocyte esterase, 4+ protein, 5 to 10 rbc's, wbc's. BUN is 59, creatinine 6.4, and potassium 4.3. White count is 8.4, hemoglobin 8.8, and platelets are 188. His last urine culture showed Providencia stuartii, Pseudomonas. He did have a blood culture that showed Klebsiella and Proteus. DIAGNOSTIC IMAGING STUDIES: The patient had an abdominal ultrasound, there was nonvisualization of gambell kidneys. There was a transplant kidney in the left renal fossa with the cysts. No hydro. IMPRESSION: 1. History of urinary retention with chronic suprapubic tube. 2. Probable neurogenic bladder. 3. Benign prostatic hypertrophy history. 4. End-stage renal disease. 5. Urinary tract infection and colonization. 6. Hematuria. 7. Proteinuria. 8. Renal cyst. PLAN AND DISCUSSION: Again the patient has a chronic suprapubic tube. There has been some leakage from the tube in the bag. He did have a positive urine culture. He is status post antibiotics. I did see the patient on an urgent basis and I personally removed old suprapubic tube and a new 18-Bahamian suprapubic tube was placed. This was irrigated and it is in good position. The patient is scheduled [facility] and he will need outpatient followup for exchange of the suprapubic tube, which should be done about every 3 weeks or so. Thank you for this consultation. Ye Rios M.D. DR: Nicki JOB#: [id number] CC:
[2018-07-17] MEDS ORDERED: NovoLOG Insulin Flexpen SUBQ SCH (16:50)
== END 2018-07-17 16:10 | DRG 698 ==
LOC: EDBD 12:01 → EMR 12:42 → 2E 13:06 → EDBEDREQ 13:12 → EDBEDREQSVC 14:34 → EDBEDREQ 14:34 → 2E 19:46 → 4E 07-12 16:02
DX: T83.518A Infection and inflammatory reaction due to other urinary catheter, initial encounter (principal); E10.10 Type 1 diabetes mellitus with ketoacidosis without coma; A41.59 Other Gram-negative sepsis; N18.6 End stage renal disease; J18.9 Pneumonia, unspecified organism; N18.4 Chronic kidney disease, stage 4 (severe); G93.40 Encephalopathy, unspecified; N25.81 Secondary hyperparathyroidism of renal origin; Z94.0 Kidney transplant status; N39.0 Urinary tract infection, site not specified; Z16.12 Extended spectrum beta lactamase (ESBL) resistance; E10.319 Type 1 diabetes mellitus with unspecified diabetic retinopathy without macular edema; B96.5 Pseudomonas (aeruginosa) (mallei) (pseudomallei) as the cause of diseases classified elsewhere; Z16.24 Resistance to multiple antibiotics; H54.40 Blindness, one eye, unspecified eye; I12.9 Hypertensive chronic kidney disease with stage 1 through stage 4 chronic kidney disease, or unspecified chronic kidney disease; F32.9 Major depressive disorder, single episode, unspecified; N18.9 Chronic kidney disease, unspecified; D63.1 Anemia in chronic kidney disease; Z88.8 Allergy status to other drugs, medicaments and biological substances; N40.0 Benign prostatic hyperplasia without lower urinary tract symptoms; Z85.528 Personal history of other malignant neoplasm of kidney; Z79.4 Long term (current) use of insulin; N31.9 Neuromuscular dysfunction of bladder, unspecified; N28.1 Cyst of kidney, acquired; I25.2 Old myocardial infarction; E86.0 Dehydration; E10.65 Type 1 diabetes mellitus with hyperglycemia; Z91.14 Patient's other noncompliance with medication regimen; Z86.73 Personal history of transient ischemic attack (TIA), and cerebral infarction without residual deficits; E87.6 Hypokalemia; Z66 Do not resuscitate; E55.9 Vitamin D deficiency, unspecified; I27.20 Pulmonary hypertension, unspecified; Z53.20 Procedure and treatment not carried out because of patient's decision for unspecified reasons; Z79.01 Long term (current) use of anticoagulants; Z79.82 Long term (current) use of aspirin
CPT/HCPCS: 36415; 71045; 76700; 80053; 80061; 81003; 82140; 82550; 82607; 82728; 82746; 82962; 82977; 83036; 83605; 83690; 83735; 83880; 84100; 84443; 84484; 84550; 85007; 85025; 85610; 85730; 86140; 86710; 87040; 87081; 87086; 87181; 93005; 94640; 94664; 94760; 96361; 96365; 96375; 99285; J1815; J2405; J8499; S5561

== ENCOUNTER 2018-07-28 20:01 | Inpatient (IN) | payer MEDICARE, MEDICAID ==
[~2018-07-28] VITALS: Ht 182.9 cm; Wt 67.1 kg
[~2018-07-28 20:01] MED LIST changes: +MEROPENEM1 GM IV; +METOPROLOL SUCC25 MG ORAL; +OMEPRAZOLE20 M2 ORAL
[2018-07-28 20:11] VITALS: BP 104/41
[2018-07-28] MEDS ORDERED: Sodium Chloride 550 ML IV SCH (20:15)
[2018-07-28] MEDS ORDERED: Bacitracin Oint UD TOPIC ONE (20:15)
--- NOTE | 2018-07-28 20:30 | NUR ---
ED Nurse Note: Patient TRAV [facility][id number] from [facility] c/o hyperglycemia. Per facility BS was above 500
[2018-07-28 21:19] LABS: BASOPHILS % (AUTO) 0.6 % (0.0-2.0); LYMPHOCYTES % (AUTO) 7.8 % (20.0-45.0); MEAN CORPUSCULAR VOLUME 98 FL (80-99); MONOCYTES % (AUTO) 9.3 % (1.0-10.0); NEUTROPHILS % (AUTO) 82.2 % (45.0-75.0); PLATELET COUNT 271 K/UL (150-450); RED BLOOD COUNT 3.26 M/UL (4.70-6.10); RED CELL DISTRIBUTION WIDTH 14.6 % (11.6-14.8); WHITE BLOOD COUNT 14.5 K/UL (4.8-10.8)
[2018-07-28] MEDS ORDERED: DULCOLAX10 MG RC (21:30)
[2018-07-28] MEDS ORDERED: MILK OF MA2400 MG/10 ORAL (21:30)
[2018-07-28] MEDS ORDERED: NOVOLOG100 UNITS1 (21:30)
[2018-07-28] MEDS ORDERED: LEVEMIR FL100 UNIT/2 SQ (21:30)
--- NOTE | 2018-07-28 21:34 | Emergency Room Report ---
History of Present Illness General Chief Complaint: Abnormal Labs Source: EMS Present Illness HPI Patient brought in by BLS of her hyperglycemia. Allegedly there is no fever, vomiting. The patient has dementia and is unable to tell us symptomatology. Type 1 diabetes. Discharged 07/17 from [facility] for sepsis. Patient has indwelling suprapubic cath. No feeding tube. Apparently the patient has a past with a POLST with DO NOT RESUSCITATE however this has not been signed by the physician. S/P renal transplant ESRD - refuses dialysis D/C diagnoses from March: Sepsis due to complicated UTI with suprapubic catheter UTI with ESBL Proteus mirabilis and MRSA Acute on chronic toxic metabolic encephalopathy due to UTI and hyperglycemia Acute diabetic ketoacidosis Diabetes mellitus type 2 out of control Chronic kidney disease stage IV Acute on chronic renal failure Hypoparathyroidism BPH Hypercholesterolemia Hypertension Bladder outlet obstruction status post suprapubic catheter Neurogenic bladder Diabetes with Diabetic retinopathy on the left eye Blindness on the left eye Major depressive disorder with history of suicidal attempt Anxiety disorder Pulmonary hypertension Renal and pancreatic CA Renal transplant recipient Anemia Drop in hemoglobin requiring blood transfusion Rash Coronary artery disease with history of and STEMI Allergies: Coded Allergies: CEFEPIME (Verified Allergy, Intermediate, Rash, 03/01/18) Tolerates Carbapenem Patient History Limited by: medical condition Past Medical History: see triage record, old chart reviewed Past Surgical History: other - renal transplant, suprapubic catheter Social History Narrative jail facility Reviewed Nursing Documentation: PMH: Agreed; PSxH: Agreed Nursing Documentation-[facility] Hx Hypertension: Yes Hx Pacemaker: No Hx Asthma: Yes Hx COPD: Yes Hx Diabetes: Yes Hx Cancer: Yes - kidney and panreas ca Hx Gastrointestinal Problems: Yes - Gastritis, Hx Dialysis: No - BPH, CKD, Anemia, renal osteodystrophy second hyperparathyroidism w/ vit D Hx Neurological Problems: Yes Hx Cerebrovascular Accident: Yes Hx Transient Ischemic Attacks: No Hx Dementia: No Hx Alzheimer's Disease: No Hx Parkinson's Disease: No Hx Meningitis: No Hx Encephalitis: Yes - 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 ATTEMPT Hx Seizures: No Hx Epilepsy: No Hx Multiple Sclerosis: No Hx Cerebral Palsy: No Hx Amyotrophic Lat Sclerosis: No Hx Guillian-Martinton Syndrome: No Hx Paralysis: No Hx Peripheral Neuropathy: No Hx Spinal Cord Injury: No Hx Head Trauma: No Hx Traumatic Brain Injury: No Hx Memory Loss: No Hx Concentration Difficulty: No Hx Speech Problem: No Hx Tremors: No Hx Vertigo: No Hx Dizziness: Yes Hx Syncope: No Hx Headaches: No Hx Aphasia: No Hx Dysphasia: No Hx Numbness: No Hx Weakness: No Hx Fatigue: No Hx Neurologic Surgery: No Hx Brain Shunt: No Review of Systems All Other Systems: limited Physical Exam Vital Signs Date Time Temp Pulse Resp B/P (MAP) Pulse Ox O2 Delivery O2 Flow Rate FiO2 07/28/18 20:04 97.9 85 18 104/41 93 Room Air Sp02 EP Interpretation: reviewed, abnormal - low as interpreted by me General Appearance: cachetic, thin, other - GCS 13, Chronically Ill Head: normocephalic, atraumatic Eyes: left eye other - blind ENT: dry mucus membranes Neck: supple - though some generalized rigidity Respiratory: lungs clear, normal breath sounds, no respiratory distress Cardiovascular #1: regular rate, rhythm, no edema Cardiovascular #2: 2+ radial (L) Gastrointestinal: no rebound, tenderness - throughout abd, other - suprapubic cath, decreased bowel sounds Genitourinary: no CVA tenderness Musculoskeletal: pelvis stable, other - contractures all extremities, atrophy - onycholysis Neurologic: other - occasionally vocalized, prefers eyes closed, moves proximal extremities Psychiatric: other - slight obtundation with sometimes fighting with staff, shouting "stop it" Reflexes: 2+ knee (R), 2+ knee (L) Skin: warm/dry, other - sallo, R hip decub, xerosis, intertrigo with erythematous striae abdomen Procedures Critical Care Time Critical Care Time Total Critical Care Time: 90 min bedside evaluation and treatment excludes procedures (EKG, replacement suprapubic cath). Reason for critical care: DKA, renal failure, sepsis, hyperkalemia, NSTEMI Possible complications: hypotension, hypertension, [place], shock, arrhythmias, metabolic acidosis, end organ damage, respiratory failure. Interventions: Sepsis resuscitation, suprapubic cath replace, insulin drip, treatment hyperkalemia, fluid evaluation, evaluation level of care Course: Patient with hyperglycemia. Suspect sepsis and fluid resuscitation with antibiotics begun. Suprapubic cath replaced. Hyperkalemia treated. DKA and renal failure, insulin drip begun. Aspirin for NSTEMI. Re-assessment. Evaluation of 2 POLSTs and discussion with MDs regarding level of care. Repeat evaluations. Consultations: nursing staff, EMS, admitting and treating MDs, RT Performed by: Dr. Arroyo Tolerated well condition = critical Additional Procedure Procedure Narrative replacement of suprapubic cath under sterile conditions after Betadine prep. Tolerated well. Turbid urine obtained. Medical Decision Making Diagnostic Impression: Primary Impression: NSTEMI (non-ST elevated myocardial infarction) Additional Impressions: Hyperkalemia DKA (diabetic ketoacidoses) Qualified Codes: E10.10 - Type 1 diabetes mellitus with ketoacidosis without coma UTI (urinary tract infection) Qualified Codes: T83.510A - Infection and inflammatory reaction due to cystostomy catheter, initial encounter; N39.0 - Urinary tract infection, site not specified Metabolic acidosis Acute on chronic renal failure Qualified Codes: N17.9 - Acute kidney failure, unspecified; N18.5 - Chronic kidney disease, stage 5 ER Course Patient presents with hyperglycemia with complicated history of post renal transplant. Ddx: AMI, sepsis, UTI, DKA, hyperglycemia, hyperosmolar state amongst others. No resp distress. Difficult and complex patient with DNR and prior refusal to be dialyzed. Need to address hyperglycemia and possible sepsis with IV hydration. EKG with ST, no injury. CXR without infiltrates or CHF. WBC elevated. Aggressive IV resuscitation begun. Antibiotics begun for sepsis from urinary source. Suprapubic cath replaced by ERMD. CMP with critical hyperkalemia and renal failure with significant acidosis. With Acute renal failure, back off of some hydration. Treatment of high K initiated also with bolus of insulin. Abg with acidosis (DKA and renal failure). Will treat with 1 amp bicarb as high K. Insulin drip begun. Elevated troponin (no STEMI). Aspirin given. May be elevated related to ARF. Attempting to determine level of care. Prior DNR which continues. Discussed with Dr. Glasgow (agrees with DNR) who defers to Dr. Rosado. In order to care for multiple problems, will admit to ICU. Dr. Rosado agrees. Extremely complicated patient. On insulin drip and after bolus (more for K), glucose 490. Continue Insulin drip. Mentation - improved with eyes open, reacting to environment. Capillary fill normal and BP stable. HR stable. Lactate slightly elevated but being treated. (In the face of renal failure, need judicious volume replacement -- bolus not completed when repeat performed.) Admit ICU improved, but critical, Dr. Rosado. Laboratory Tests Test 07/28/18 21:03 07/28/18 22:54 07/29/18 00:50 White Blood Count 14.5 K/UL (4.8-10.8) H Red Blood Count 3.26 M/UL (4.70-6.10) L Hemoglobin 10.0 G/DL (14.2-18.0) L Hematocrit 32.0 % (42.0-52.0) L Mean Corpuscular Volume 98 FL (80-99) Mean Corpuscular Hemoglobin 30.8 PG (27.0-31.0) Mean Corpuscular Hemoglobin Concent 31.4 G/DL (32.0-36.0) L Red Cell Distribution Width 14.6 % (11.6-14.8) Platelet Count 271 K/UL (150-450) Mean Platelet Volume 6.4 FL (6.5-10.1) L Neutrophils (%) (Auto) 82.2 % (45.0-75.0) H Lymphocytes (%) (Auto) 7.8 % (20.0-45.0) L Monocytes (%) (Auto) 9.3 % (1.0-10.0) Eosinophils (%) (Auto) 0.0 % (0.0-3.0) Basophils (%) (Auto) 0.6 % (0.0-2.0) Prothrombin Time 10.5 SEC (9.30-11.50) Prothrombin Time INR 1.0 (0.9-1.1) PTT 32 SEC (23-33) Urine Color Pale yellow Urine Appearance Very cloudy Urine pH 5 (4.5-8.0) Urine Specific [place] 1.015 (1.005-1.035) Urine Protein 3+ (NEGATIVE) H Urine Glucose (UA) 4+ (NEGATIVE) H Urine Ketones 2+ (NEGATIVE) H Urine Blood 5+ (NEGATIVE) H Urine Nitrite Negative (NEGATIVE) Urine Bilirubin Negative (NEGATIVE) Urine Urobilinogen Normal MG/DL (0.0-1.0) Urine Leukocyte Esterase 3+ (NEGATIVE) H Urine RBC 5-10 /HPF (0 - 0) H Urine WBC Tntc /HPF (0 - 0) H Urine Squamous Epithelial Cells None /LPF (NONE/OCC) Urine Bacteria Moderate /HPF (NONE) H Urine Yeast Many /HPF (NONE) H Sodium Level 135 MMOL/L (136-145) L Potassium Level 6.3 MMOL/L (3.5-5.1) *H Chloride Level 109 MMOL/L (98-107) H Carbon Dioxide Level 7 MMOL/L (21-32) *L Anion Gap 19 mmol/L (5-15) H Blood Urea Nitrogen 123 mg/dL (7-18) H Creatinine 9.0 MG/DL (0.55-1.30) H Estimate Glomerular Filtration Rate 6.0 mL/min (>60) Glucose Level 616 MG/DL (74-106) *H Lactic Acid Level 2.40 mmol/L (0.4-2.0) H Pending Calcium Level 8.8 MG/DL (8.5-10.1) Magnesium Level 2.7 MG/DL (1.8-2.4) H Total Bilirubin 0.3 MG/DL (0.2-1.0) Aspartate Amino Transferase (AST) 10 U/L (15-37) L Alanine Aminotransferase (ALT) 11 U/L (12-78) L Alkaline Phosphatase 118 U/L (46-116) H Total Creatine Kinase 51 U/L (26-308) Troponin I 0.106 ng/mL (0.000-0.056) Pro-B-Type Natriuretic Peptide 5666 pg/mL (0-125) H Total Protein 6.7 G/DL (6.4-8.2) Albumin 2.6 G/DL (3.4-5.0) L Globulin 4.1 g/dL Albumin/Globulin Ratio 0.6 (1.0-2.7) L Arterial Blood pH 7.055 (7.350-7.450) Arterial Blood Partial Pressure CO2 17.5 mmHg (35.0-45.0) *L Arterial Blood Partial Pressure O2 97.1 mmHg (75.0-100.0) Arterial Blood HCO3 4.8 mmol/L (22.0-26.0) *L Arterial Blood Oxygen Saturation 95.4 % (95-100) Arterial Blood Base Excess -23.7 (-2-2) *L Mikael Test Positive EKG Diagnostic Results Rate: normal Rhythm: NSR ST Segments: no acute changes Rhythm Strip Diag. Results EP Interpretation: yes Rhythm: NSR, no PVC's, no ectopy Chest X-Ray Diagnostic Results Chest X-Ray Diagnostic Results : Chest X-Ray Ordered: Yes # of Views/Limited/Complete: 1 View Indication: Other EP Interpretation: Yes Interpretation: no consolidation, no effusion, no pneumothorax Impression: No acute disease Electronically Signed by: Electronically signed by William Arroyo MD Last Vital Signs Date Time Temp Pulse Resp B/P (MAP) Pulse Ox O2 Delivery O2 Flow Rate FiO2 07/29/18 01:30 97.9 70 18 111/55 99 Room Air Status: improved Disposition: ADMITTED INPATIENT Condition: Critical Referrals: Jose Glasgow MD (PCP) William Arroyo MD Jul 28, 2018 21:34
[2018-07-28 21:42] LABS: APPEARANCE,URINE VERY CLOUDY; BILIRUBIN, URINE NEGATIVE (NEGATIVE); COLOR,URINE PALE YELLOW; GLUCOSE, URINE (UA) 4+ (NEGATIVE); KETONES,URINE 2+ (NEGATIVE); LEUKOCYTE ESTERASE ,URINE 3+ (NEGATIVE); NITRITE,URINE NEGATIVE (NEGATIVE); PH,URINE 5 (4.5-8.0); PROTEIN,URINE 3+ (NEGATIVE); UROBILINOGEN,URINE NORMAL MG/DL (0.0-1.0)
--- NOTE | 2018-07-28 21:48 | NUR ---
ED Nurse Note: Kesha Rebolledo is super pubic inserted BY .
[2018-07-28 21:51] LABS: ALANINE AMINOTRANSFERASE 11 U/L (12-78); ALBUMIN 2.6 G/DL (3.4-5.0); ALBUMIN/GLOBULIN RATIO 0.6 (1.0-2.7); ALKALINE PHOSPHATASE 118 U/L (46-116); ANION GAP 19 mmol/L (5-15); ASPARTATE AMINO TRANSFERASE 10 U/L (15-37); BILIRUBIN,TOTAL 0.3 MG/DL (0.2-1.0); BLOOD UREA NITROGEN 123 mg/dL (7-18); CALCIUM 8.8 MG/DL (8.5-10.1); CHLORIDE 109 MMOL/L (98-107); CREATINE KINASE 51 U/L (26-308); SODIUM 135 MMOL/L (136-145)
[2018-07-28 21:53] LABS: CARBON DIOXIDE 7 MMOL/L (21-32); POTASSIUM 6.3 MMOL/L (3.5-5.1)
[2018-07-28] MEDS ORDERED: Sodium Polystyrene Sulfonate 15gm Powder RECTAL STA (21:53)
[2018-07-28] MEDS ORDERED: Calcium Gluconate 1gm/10ml vial IVP ONE (22:00)
[2018-07-28] MEDS ORDERED: Piperacillin/Tazobactam 3.375 GM in NS 110 ML IVPB ONE (22:00)
[2018-07-28] MEDS ORDERED: Insulin Human Regular 100units/ml 3ml IV ONE (22:00)
[2018-07-28 22:10] VITALS: BP 100/50
[2018-07-28] MEDS ORDERED: Sodium Bicarbonate 50ml Carp IV ONE (23:15)
[2018-07-28 23:27] VITALS: BP 110/50
[2018-07-28] MEDS ORDERED: Insulin Human Regular 100units/ml 3ml ONE (23:31)
--- NOTE | 2018-07-28 23:33 | NUR ---
ED Nurse Note: MEDS were not able to scan due to scanner. RN had to usu manual bar code. RN tiff verified. had to override to take out HUMULIN medication for insulin drip. NICOLE pate MD arware and approved.
[2018-07-29] VITALS (30 sets, daily range): BP systolic 50–122; BP diastolic 24–82
--- NOTE | 2018-07-29 01:10 | NUR ---
ED Nurse Note: PT is transfered to [facility] to RN rica pt vital signs, condition and status is reported to ERMD and receving RN during and before transfer. pt has been transfered with all belongins. pt is stable for transfer.
--- NOTE | 2018-07-29 01:20 | NUR ---
NURSE NOTES:Received pt from ER with Dx DKA, sleeping at this time but, easily arousable to verbal stimuli. SR on the monitor , Bp 110/60, afebrile, On Insulin drip at 10u/hr, infusing to left wrist (beep and positional most of the time, Pt is a hard stick. bloodsugar check 339mg/dl . Pt on Room air. 02 sat 100%. No SOB noted.Pt was incontinent of stool when he came up- cleaned up pt Pt has blancheable redness sacral and buttocks area, Applied calazime and A and D to affected area. Pt is on position most of the time and non compliant. Instructed and aware hi critical condition- Pt is inapropriate in answering back.Will Continue to monitor.
--- NOTE | 2018-07-29 01:40 | NUR ---
NURSE NOTES:Dr Rosado was notified by NICOLE Carmona for admission orders-Md will call back. -awaiting for a call back
--- NOTE | 2018-07-29 03:00 | NUR ---
NURSE NOTES:Aware Rn cap and hat production supervisor that DR Rosado did not call back- RN cap and hat production supervisor Ludin advised to call Dr Molina and was done
[2018-07-29] MEDS ORDERED: Lidocaine 1% Plain 30 ml INJ PRN (04:45)
[2018-07-29] MEDS ORDERED: Insulin Human Regular 100units/ml 3ml IV PRN ×2 (04:45)
[2018-07-29] MEDS: Insulin Rate Change 1 Each MISC PRN ×6 (05:31→18:55)
--- NOTE | 2018-07-29 06:57 | NUR ---
NURSE NOTES:blood sugar checked 59 mg/dl- 1 amp D50 was given. To check blood sugar in 30 min.
[2018-07-29 07:31] LABS: HEMATOCRIT 21.9 % (42.0-52.0); HEMOGLOBIN 7.1 G/DL (14.2-18.0); MEAN CORPUSCULAR VOLUME 95 FL (80-99); PLATELET COUNT 218 K/UL (150-450)
--- NOTE | 2018-07-29 07:36 | NUR ---
HAND-OFF: Report given to Delmy Garcia using sbar..
[2018-07-29 07:55] LABS: ANION GAP 19 mmol/L (5-15); BLOOD UREA NITROGEN 93 mg/dL (7-18); CHLORIDE 121 MMOL/L (98-107); CREATININE 6.5 MG/DL (0.55-1.30); INR 1.1 (0.9-1.1); POTASSIUM 3.7 MMOL/L (3.5-5.1); SODIUM 147 MMOL/L (136-145)
[2018-07-29] MEDS ORDERED: Heparin 2000 units/Ns 1000ml INJ PRN (08:00)
--- NOTE | 2018-07-29 08:00 | NUR ---
NURSE NOTES: Received pt from NICOLE Villa. On Insulin drip for DKA on hold for BS 58.On room air and saturate at 96%.Asleep and easily arousal to tactile and verbal stimuli. Afebrile at this time with no apparent s/s acute distress.Pt able to self reposition with assist.Kept clean ,dry and comfortable.Will Continue to monitor.
[2018-07-29 08:20] LABS: APPEARANCE,URINE CLOUDY; BILIRUBIN, URINE NEGATIVE (NEGATIVE); COLOR,URINE PALE YELLOW; GLUCOSE, URINE (UA) 3+ (NEGATIVE); KETONES,URINE NEGATIVE (NEGATIVE); LEUKOCYTE ESTERASE ,URINE 3+ (NEGATIVE); NITRITE,URINE NEGATIVE (NEGATIVE); PH,URINE 6 (4.5-8.0); PROTEIN,URINE 4+ (NEGATIVE); UROBILINOGEN,URINE NORMAL MG/DL (0.0-1.0)
[2018-07-29 08:34] LABS: CARBON DIOXIDE 7 MMOL/L (21-32)
--- NOTE | 2018-07-29 08:57 | NUR ---
NURSE NOTES: Received call back from Dr Rosado as stated" DR Delgado will be there soon to see the patient". Also add ID consult with Dr Reynoso
[2018-07-29] MEDS ORDERED: Pantoprazole Inj IVP SCH (09:00)
[2018-07-29] MEDS: Heparin 5000 units/ml inj SUBQ SCH ×2 (09:19→20:43)
--- NOTE | 2018-07-29 10:15 | NUR ---
NURSE NOTES: Pt self repositioned, seen by Dr Delgado and made aware of labs CO2 Chemistry,HCO3 and Hgb 7.1.Will follow up with new orders.Offered breakfast x 3 but refusing.
--- NOTE | 2018-07-29 10:40 | Pulmonolgy Critical Care Note ---
Critical Care - Asmt/Plan Problems: (1) DKA (diabetic ketoacidoses) (2) Encephalopathy acute (3) Acute on chronic renal failure (4) Suprapubic catheter (5) HTN (hypertension) (6) Major depressive disorder (7) BPH (benign prostatic hypertrophy) Respiratory: monitor respiratory rate, adjust FIO2, CXR Cardiac: continue to monitor HR/BP Renal: F/U I&O, keep IV fluid, check electrolytes, other - one liter NS Infectious Disease: check cultures Gastrointestinal: hold feedings Endocrine: monitor blood sugar, start insulin drip Hematologic: monitor H/H, transfuse if hgb<8.5 Neurologic: PRN Morphine Affect: PRN ativan Prophylaxis: Protonix Notes Reviewed: 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, 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, 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, consultants, pillowcase folderretail pharmacy manager - Objective Last 24 Hour Vital Signs Date Time Temp Pulse Resp B/P (MAP) Pulse Ox O2 Delivery O2 Flow Rate FiO2 07/29/18 10:00 77 20 88/46 100 Room Air 07/29/18 09:00 77 20 80/39 100 Room Air 07/29/18 09:00 74 07/29/18 08:00 98.5 77 20 110/54 100 Room Air 07/29/18 08:00 Room Air 07/29/18 07:00 74 20 100/50 100 Room Air 07/29/18 06:00 74 20 101/42 100 Room Air 07/29/18 05:00 81 20 100/37 100 Room Air 07/29/18 04:00 Room Air 07/29/18 04:00 98.1 77 20 99/34 100 Room Air 07/29/18 03:00 71 20 50/25 100 Room Air 07/29/18 02:58 68 07/29/18 02:38 77 18 69/24 100 Room Air 07/29/18 02:36 75 21 79/26 100 Room Air 07/29/18 02:22 79 17 96/41 100 Room Air 07/29/18 02:20 77 18 92/30 100 Room Air 07/29/18 02:15 81 23 56/27 98 Room Air 07/29/18 02:00 79 19 74/38 100 Room Air 07/29/18 01:30 97.9 70 18 111/55 99 Room Air 07/29/18 01:20 Room Air 07/29/18 01:20 Room Air 07/29/18 01:14 98.0 19 100/75 100 Room Air 07/29/18 01:10 97.9 70 18 111/55 99 Room Air 07/29/18 01:10 97.9 70 18 111/55 99 Room Air 07/28/18 23:27 97.9 73 18 110/50 99 Room Air 07/28/18 22:10 97.9 69 18 100/50 93 Room Air 07/28/18 20:11 97.9 71 18 104/41 93 Room Air 07/28/18 20:04 97.9 85 18 104/41 93 Room Air Status: awake Condition: critical HEENT: atraumatic Lungs: chest wall tender Heart: HR/BP stable Abdomen: soft, non-tender Extremities: no C/C/E Decubiti: location Micro: Microbiology Date/Time Source Procedure Growth Status 07/28/18 21:03 Urine,Clean Catch Urine Culture - Preliminary Resulted Accucheck: 141 Critical Care - Subjective Interval Events: 63 year old male with DM, s/p Kidney transplant rejection, CKD stage III, prison resident, brought in b/o critically high Blood sugar. He was started on insulin drip in ER and was transferred to ICU. I&O: Intake and Output 07/28/18 07/29/18 18:59 06:59 Intake Total 890.2 ml Output Total 531 ml Balance 359.2 ml Intake Oral 0 ml IV Total 890.2 ml Output Urine Total 530 ml Stool Total 1 ml # Bowel Movements 3 Labs: Laboratory Tests Test 07/28/18 21:03 07/28/18 22:54 07/29/18 00:50 07/29/18 05:15 White Blood Count 14.5 K/UL (4.8-10.8) H Red Blood Count 3.26 M/UL (4.70-6.10) L Hemoglobin 10.0 G/DL (14.2-18.0) L Hematocrit 32.0 % (42.0-52.0) L Mean Corpuscular Volume 98 FL (80-99) Mean Corpuscular Hemoglobin 30.8 PG (27.0-31.0) Mean Corpuscular Hemoglobin Concent 31.4 G/DL (32.0-36.0) L Red Cell Distribution Width 14.6 % (11.6-14.8) Platelet Count 271 K/UL (150-450) Mean Platelet Volume 6.4 FL (6.5-10.1) L Neutrophils (%) (Auto) 82.2 % (45.0-75.0) H Lymphocytes (%) (Auto) 7.8 % (20.0-45.0) L Monocytes (%) (Auto) 9.3 % (1.0-10.0) Eosinophils (%) (Auto) 0.0 % (0.0-3.0) Basophils (%) (Auto) 0.6 % (0.0-2.0) Prothrombin Time 10.5 SEC (9.30-11.50) Prothromb Time International Ratio 1.0 (0.9-1.1) Activated Partial Thromboplast Time 32 SEC (23-33) Urine Color Pale yellow Pale yellow Urine Appearance Very cloudy Cloudy Urine pH 5 (4.5-8.0) 6 (4.5-8.0) Urine Specific [place] 1.015 (1.005-1.035) 1.015 (1.005-1.035) Urine Protein 3+ (NEGATIVE) H 4+ (NEGATIVE) H Urine Glucose (UA) 4+ (NEGATIVE) H 3+ (NEGATIVE) H Urine Ketones 2+ (NEGATIVE) H Negative (NEGATIVE) Urine Blood 5+ (NEGATIVE) H 5+ (NEGATIVE) H Urine Nitrite Negative (NEGATIVE) Negative (NEGATIVE) Urine Bilirubin Negative (NEGATIVE) Negative (NEGATIVE) Urine Urobilinogen Normal MG/DL (0.0-1.0) Normal MG/DL (0.0-1.0) Urine Leukocyte Esterase 3+ (NEGATIVE) H 3+ (NEGATIVE) H Urine RBC 5-10 /HPF (0 - 0) H Tntc /HPF (0 - 0) H Urine WBC Tntc /HPF (0 - 0) H Tntc /HPF (0 - 0) H Urine Squamous Epithelial Cells None /LPF (NONE/OCC) Occasional /LPF Urine Bacteria Moderate /HPF (NONE) H Few /HPF (NONE) Urine Yeast Many /HPF (NONE) H Sodium Level 135 MMOL/L (136-145) L Potassium Level 6.3 MMOL/L (3.5-5.1) *H Chloride Level 109 MMOL/L (98-107) H Carbon Dioxide Level 7 MMOL/L (21-32) *L Anion Gap 19 mmol/L (5-15) H Blood Urea Nitrogen 123 mg/dL (7-18) H Creatinine 9.0 MG/DL (0.55-1.30) H Estimat Glomerular Filtration Rate 6.0 mL/min (>60) Glucose Level 616 MG/DL (74-106) *H Lactic Acid Level 2.40 mmol/L (0.4-2.0) H 2.70 mmol/L (0.66-2.22) H Calcium Level 8.8 MG/DL (8.5-10.1) Magnesium Level 2.7 MG/DL (1.8-2.4) H Total Bilirubin 0.3 MG/DL (0.2-1.0) Aspartate Amino Transf (AST/SGOT) 10 U/L (15-37) L Alanine Aminotransferase (ALT/SGPT) 11 U/L (12-78) L Alkaline Phosphatase 118 U/L (46-116) H Total Creatine Kinase 51 U/L (26-308) Troponin I 0.106 ng/mL (0.000-0.056) Pro-B-Type Natriuretic Peptide 5666 pg/mL (0-125) H Total Protein 6.7 G/DL (6.4-8.2) Albumin 2.6 G/DL (3.4-5.0) L Globulin 4.1 g/dL Albumin/Globulin Ratio 0.6 (1.0-2.7) L Arterial Blood pH 7.055 (7.350-7.450) Arterial Blood Partial Pressure CO2 17.5 mmHg (35.0-45.0) *L Arterial Blood Partial Pressure O2 97.1 mmHg (75.0-100.0) Arterial Blood HCO3 4.8 mmol/L (22.0-26.0) *L Arterial Blood Oxygen Saturation 95.4 % (95-100) Arterial Blood Base Excess -23.7 (-2-2) *L Mikael Test Positive Test 07/29/18 05:29 07/29/18 08:10 White Blood Count 8.0 K/UL (4.8-10.8) Red Blood Count 2.30 M/UL (4.70-6.10) L Hemoglobin 7.1 G/DL (14.2-18.0) L Hematocrit 21.9 % (42.0-52.0) #L Mean Corpuscular Volume 95 FL (80-99) Mean Corpuscular Hemoglobin 31.0 PG (27.0-31.0) Mean Corpuscular Hemoglobin Concent 32.7 G/DL (32.0-36.0) Red Cell Distribution Width 14.0 % (11.6-14.8) Platelet Count 218 K/UL (150-450) Mean Platelet Volume 6.8 FL (6.5-10.1) Neutrophils (%) (Auto) % (45.0-75.0) Lymphocytes (%) (Auto) % (20.0-45.0) Monocytes (%) (Auto) % (1.0-10.0) Eosinophils (%) (Auto) % (0.0-3.0) Basophils (%) (Auto) % (0.0-2.0) Neutrophils % (Manual) Pending Lymphocytes % (Manual) Pending Platelet Estimate Pending Platelet Morphology Pending Prothrombin Time 11.4 SEC (9.30-11.50) Prothromb Time International Ratio 1.1 (0.9-1.1) Activated Partial Thromboplast Time 34 SEC (23-33) H Sodium Level 147 MMOL/L (136-145) #H Potassium Level 3.7 MMOL/L (3.5-5.1) Chloride Level 121 MMOL/L (98-107) H Carbon Dioxide Level 7 MMOL/L (21-32) *L Anion Gap 19 mmol/L (5-15) H Blood Urea Nitrogen 93 mg/dL (7-18) H Creatinine 6.5 MG/DL (0.55-1.30) H Estimat Glomerular Filtration Rate 8.7 mL/min (>60) Glucose Level 84 MG/DL (74-106) # Lactic Acid Level 1.40 mmol/L (0.4-2.0) Calcium Level 7.0 MG/DL (8.5-10.1) #L Phosphorus Level 5.0 MG/DL (2.5-4.9) H Magnesium Level 1.8 MG/DL (1.8-2.4) Arterial Blood pH 7.157 (7.350-7.450) Arterial Blood Partial Pressure CO2 20.4 mmHg (35.0-45.0) *L Arterial Blood Partial Pressure O2 72.4 mmHg (75.0-100.0) L Arterial Blood HCO3 7.1 mmol/L (22.0-26.0) *L Arterial Blood Oxygen Saturation 91.6 % (95-100) L Arterial Blood Base Excess -19.9 (-2-2) *L Mikael Test Positive Esdras Delgado MD Jul 29, 2018 10:40
[2018-07-29] MEDS: D5 1/2NS 1,000 ML IV SCH ×2 (11:12→20:44)
--- NOTE | 2018-07-29 11:26 | Consultation ---
Consult Note Consult Note know to me from previous admissions Patient brought in by BLS of her hyperglycemia. Allegedly there is no fever, vomiting. The patient has dementia and is unable to tell us symptomatology. Type 1 diabetes. Discharged 07/17 from [facility] for sepsis. Patient has indwelling suprapubic cath. No feeding tube. Apparently the patient has a past with a POLST with DO NOT RESUSCITATE however this has not been signed by the physician. S/P renal transplant ESRD - refuses dialysis seen in ICU not historian examined Assessment/Plan ESRD , in need of dialysis , refuses- presents with high K Encephalopathy , Metabolic Acidosis , Uremic and Diabetic Sever Anemia: Mixed etiology HTn, but presents with low BP Supra Pubic Cath, h/o UTI, BPH Psych disease CAD, elevated Troponin I s/p DKAs Hydrate- Transfuse Bicarbs Sugar control will do poorly in view of no dialysis plans DNR per orders Luis Chambers MD Jul 29, 2018 11:26
--- NOTE | 2018-07-29 12:07 | NUR ---
NURSE NOTES: Patient turned and repositioned.Mouth care done after multiple attempts.Non compliant to all care.Refused lunch. Kept clean and dry.Will continue to monitor.
[2018-07-29] MEDS: Sodium Citrate 30ml ORAL SCH ×3 (12:10→23:53)
--- NOTE | 2018-07-29 12:15 | Diagnostic Imaging Report ---
Indication: Dyspnea Comparison: 07/08/2018 A single view chest radiograph was obtained. Findings: Faint density noted at the right lung base overlying the right heart border which may be atelectasis or scarring. Similar findings seen previously. The heart is mildly enlarged. Bones are osteopenic. IMPRESSION: Suspected atelectasis or scarring right
[2018-07-29 13:40] LABS: ANION GAP 19 mmol/L (5-15); BLOOD UREA NITROGEN 109 mg/dL (7-18); CALCIUM 8.4 MG/DL (8.5-10.1); CHLORIDE 118 MMOL/L (98-107); CREATININE 7.7 MG/DL (0.55-1.30); POTASSIUM 4.8 MMOL/L (3.5-5.1); SODIUM 145 MMOL/L (136-145)
[2018-07-29 13:41] LABS: CARBON DIOXIDE 8 MMOL/L (21-32)
--- NOTE | 2018-07-29 14:00 | NUR ---
NURSE NOTES: Asleep, remains on Heparin drip, will continue to monitor.Left message to Dr Reynoso for consult. Kept clean and dry.
--- NOTE | 2018-07-29 14:01 | NUR ---
CASE MANAGEMENT: REVIEW 63/M BIBA FROM [facility] CC: ABNORMAL LABS BS >500 SI: HYPERGLYCEMIA . DIABETIC KETO ACIDOSIS T 97.9 HR 85 RR 18 BP 104/41 SAT 93% ROOM AIR WBC 14.5 NA 147 GLUCOSE 616 K 6.3 ABG: PH 7.055 PCO2 17.5 PO2 97.1 HCO3 4.8 IS: NS IVF BOLUS X1 KAYEXALATE RECTAL X1 LASIX IV X1 NOVOLIN R 10 UNITS IV X1 LEVOFLOXACIN IV X1 SODIUM BICARB IV X1 INTERQUAL CRITERIA MET: PATIENT ADMITTED TO ICU 07/28/2018 DCP: PATIENT IS FROM [facility]
[2018-07-29] MEDS ORDERED: Amikacin Rx to dose MISC ONE (14:15)
--- NOTE | 2018-07-29 14:17 | Consultation ---
History of Present Illness General Chief Complaint: Abnormal Labs Present Illness HPI 63-year-old male whom im well familiar from [facility] with past medical history significant for depression, diabetes type 1 with recurrent ketoacidosis without coma,hypertension, chronic kidney disease with failed kidney transplant , coronary artery disease, gastroesophageal reflux disease, major depression, secondary hyperparathyroidism. the pt was agitated and was not able to provide any history. the pt has waxing and waning of consciousness. The pt is alert and oriented at baseline. the has been declining. Allergies: Coded Allergies: CEFEPIME (Verified Allergy, Intermediate, Rash, 03/01/18) Tolerates Carbapenem Medication History Scheduled Amlodipine Besylate (Norvasc), 5 MG ORAL DAILY, (Reported) Atorvastatin Calcium* (Lipitor*), 10 MG ORAL BEDTIME Azathioprine* (Imuran*), 50 MG PO DAILY, (Reported) Clindamycin HCl (Clindamycin HCl), 150 MG ORAL EVERY 6 HOURS Daptomycin (DAPTOmycin), 350 MG IV EVERY OTHER DAY Docusate Sodium* (Colace*), 100 MG ORAL TWICE A DAY, (Reported) Duloxetine Hcl* (Cymbalta*), 30 MG ORAL DAILY, (Reported) Ertapenem Sodium* (INVanz*), 1 GM IVPB DAILY, (Reported) Insulin Aspart (Novolog Flexpen), 6 UNITS SUBQ NOVOTIAC Insulin Detemir (Levemir Flexpen), 12 UNITS SUBQ BID Insulin Detemir (Levemir Flextouch), 12 UNIT SQ BID, (Reported) Magnesium Hydroxide* (Milk Of Magnesia*), 30 ML ORAL DAILY, (Reported) Meropenem (Meropenem), 1 GM IV EVERY 12 HOURS Meropenem-0.9% Sodium Chloride (Meropenem-0.9% NaCl 500 mg/50), 500 MG IV DAILY Metoprolol Succinate* (Metoprolol Succinate*), 50 MG ORAL Q12HR, (Reported) Metoprolol Succinate* (Metoprolol Succinate*), 12.5 MG ORAL DAILY, (Reported) Omeprazole (Omeprazole), 20 MG ORAL DAILY, (Reported) Polyethylene Glycol 3350* (Miralax*), 17 GM ORAL DAILY, (Reported) Polyethylene Glycol* (Miralax*), 17 GM ORAL BEDTIME Sevelamer Carbonate* (Renvela*), 800 MG ORAL THREE TIMES A DAY, (Reported) Tamsulosin Hcl (Tamsulosin Hcl*), 8 MG ORAL BEDTIME, (Reported) Vitamin B Cmplx/Vit C/Folic AC (Nephro-Enedina Tablet), 1 TAB ORAL DAILY, (Reported ) Vitamin D (Vitamin D3), 5,000 UNITS ORAL DAILY, (Reported) Scheduled PRN Acetaminophen* (Acetaminophen 325MG Tablet*), 650 MG ORAL Q6H PRN for For Pain, (Reported) Hydrocortisone (Hydrocortisone), 1 % TP BID PRN for Itching, (Reported) Ondansetron* (Zofran*), 4 MG ORAL Q6H PRN for Nausea & Vomiting, (Reported) Miscellaneous Medications Bisacodyl (Dulcolax), 10 MG RC, (Reported) Insulin Aspart (Novolog Flexpen), (Reported) Patient History Healthcare decision maker Resuscitation status Do Not Resuscitate Advanced Directive on File No Review of Systems Psychiatric: Reports: prior hx, anxiety, depressed feelings Physical Exam General Appearance: alert, confused, moderate distress, agitated Last 24 Hour Vital Signs Date Time Temp Pulse Resp B/P (MAP) Pulse Ox O2 Delivery O2 Flow Rate FiO2 07/29/18 12:00 77 07/29/18 12:00 Room Air 07/29/18 12:00 98.0 77 20 83/33 100 Room Air 07/29/18 11:00 90 20 106/49 100 Room Air 07/29/18 10:00 77 20 88/46 100 Room Air 07/29/18 09:00 77 20 80/39 100 Room Air 07/29/18 09:00 74 07/29/18 08:00 98.5 77 20 110/54 100 Room Air 07/29/18 08:00 Room Air 07/29/18 07:00 74 20 100/50 100 Room Air 07/29/18 06:00 74 20 101/42 100 Room Air 07/29/18 05:00 81 20 100/37 100 Room Air 07/29/18 04:00 Room Air 07/29/18 04:00 98.1 77 20 99/34 100 Room Air 07/29/18 03:00 71 20 50/25 100 Room Air 07/29/18 02:58 68 07/29/18 02:38 77 18 69/24 100 Room Air 07/29/18 02:36 75 21 79/26 100 Room Air 07/29/18 02:22 79 17 96/41 100 Room Air 07/29/18 02:20 77 18 92/30 100 Room Air 07/29/18 02:15 81 23 56/27 98 Room Air 07/29/18 02:00 79 19 74/38 100 Room Air 07/29/18 01:30 97.9 70 18 111/55 99 Room Air 07/29/18 01:20 Room Air 07/29/18 01:20 Room Air 07/29/18 01:14 98.0 19 100/75 100 Room Air 07/29/18 01:10 97.9 70 18 111/55 99 Room Air 07/29/18 01:10 97.9 70 18 111/55 99 Room Air 07/28/18 23:27 97.9 73 18 110/50 99 Room Air 07/28/18 22:10 97.9 69 18 100/50 93 Room Air 07/28/18 20:11 97.9 71 18 104/41 93 Room Air 07/28/18 20:04 97.9 85 18 104/41 93 Room Air Intake and Output 07/28/18 07/29/18 18:59 06:59 Intake Total 890.2 ml Output Total 531 ml Balance 359.2 ml Intake Oral 0 ml IV Total 890.2 ml Output Urine Total 530 ml Stool Total 1 ml # Bowel Movements 3 Laboratory Tests Test 07/28/18 21:03 07/28/18 22:54 07/29/18 00:50 07/29/18 05:15 White Blood Count 14.5 K/UL (4.8-10.8) H Red Blood Count 3.26 M/UL (4.70-6.10) L Hemoglobin 10.0 G/DL (14.2-18.0) L Hematocrit 32.0 % (42.0-52.0) L Mean Corpuscular Volume 98 FL (80-99) Mean Corpuscular Hemoglobin 30.8 PG (27.0-31.0) Mean Corpuscular Hemoglobin Concent 31.4 G/DL (32.0-36.0) L Red Cell Distribution Width 14.6 % (11.6-14.8) Platelet Count 271 K/UL (150-450) Mean Platelet Volume 6.4 FL (6.5-10.1) L Neutrophils (%) (Auto) 82.2 % (45.0-75.0) H Lymphocytes (%) (Auto) 7.8 % (20.0-45.0) L Monocytes (%) (Auto) 9.3 % (1.0-10.0) Eosinophils (%) (Auto) 0.0 % (0.0-3.0) Basophils (%) (Auto) 0.6 % (0.0-2.0) Prothrombin Time 10.5 SEC (9.30-11.50) Prothromb Time International Ratio 1.0 (0.9-1.1) Activated Partial Thromboplast Time 32 SEC (23-33) Urine Color Pale yellow Pale yellow Urine Appearance Very cloudy Cloudy Urine pH 5 (4.5-8.0) 6 (4.5-8.0) Urine Specific Dequincy 1.015 (1.005-1.035) 1.015 (1.005-1.035) Urine Protein 3+ (NEGATIVE) H 4+ (NEGATIVE) H Urine Glucose (UA) 4+ (NEGATIVE) H 3+ (NEGATIVE) H Urine Ketones 2+ (NEGATIVE) H Negative (NEGATIVE) Urine Blood 5+ (NEGATIVE) H 5+ (NEGATIVE) H Urine Nitrite Negative (NEGATIVE) Negative (NEGATIVE) Urine Bilirubin Negative (NEGATIVE) Negative (NEGATIVE) Urine Urobilinogen Normal MG/DL (0.0-1.0) Normal MG/DL (0.0-1.0) Urine Leukocyte Esterase 3+ (NEGATIVE) H 3+ (NEGATIVE) H Urine RBC 5-10 /HPF (0 - 0) H Tntc /HPF (0 - 0) H Urine WBC Tntc /HPF (0 - 0) H Tntc /HPF (0 - 0) H Urine Squamous Epithelial Cells None /LPF (NONE/OCC) Occasional /LPF Urine Bacteria Moderate /HPF (NONE) H Few /HPF (NONE) Urine Yeast Many /HPF (NONE) H Sodium Level 135 MMOL/L (136-145) L Potassium Level 6.3 MMOL/L (3.5-5.1) *H Chloride Level 109 MMOL/L (98-107) H Carbon Dioxide Level 7 MMOL/L (21-32) *L Anion Gap 19 mmol/L (5-15) H Blood Urea Nitrogen 123 mg/dL (7-18) H Creatinine 9.0 MG/DL (0.55-1.30) H Estimat Glomerular Filtration Rate 6.0 mL/min (>60) Glucose Level 616 MG/DL (74-106) *H Lactic Acid Level 2.40 mmol/L (0.4-2.0) H 2.70 mmol/L (0.66-2.22) H Calcium Level 8.8 MG/DL (8.5-10.1) Magnesium Level 2.7 MG/DL (1.8-2.4) H Total Bilirubin 0.3 MG/DL (0.2-1.0) Aspartate Amino Transf (AST/SGOT) 10 U/L (15-37) L Alanine Aminotransferase (ALT/SGPT) 11 U/L (12-78) L Alkaline Phosphatase 118 U/L (46-116) H Total Creatine Kinase 51 U/L (26-308) Troponin I 0.106 ng/mL (0.000-0.056) Pro-B-Type Natriuretic Peptide 5666 pg/mL (0-125) H Total Protein 6.7 G/DL (6.4-8.2) Albumin 2.6 G/DL (3.4-5.0) L Globulin 4.1 g/dL Albumin/Globulin Ratio 0.6 (1.0-2.7) L Arterial Blood pH 7.055 (7.350-7.450) Arterial Blood Partial Pressure CO2 17.5 mmHg (35.0-45.0) *L Arterial Blood Partial Pressure O2 97.1 mmHg (75.0-100.0) Arterial Blood HCO3 4.8 mmol/L (22.0-26.0) *L Arterial Blood Oxygen Saturation 95.4 % (95-100) Arterial Blood Base Excess -23.7 (-2-2) *L Mikael Test Positive Test 07/29/18 05:29 07/29/18 08:10 07/29/18 13:00 White Blood Count 8.0 K/UL (4.8-10.8) Red Blood Count 2.30 M/UL (4.70-6.10) L Hemoglobin 7.1 G/DL (14.2-18.0) L Hematocrit 21.9 % (42.0-52.0) #L Mean Corpuscular Volume 95 FL (80-99) Mean Corpuscular Hemoglobin 31.0 PG (27.0-31.0) Mean Corpuscular Hemoglobin Concent 32.7 G/DL (32.0-36.0) Red Cell Distribution Width 14.0 % (11.6-14.8) Platelet Count 218 K/UL (150-450) Mean Platelet Volume 6.8 FL (6.5-10.1) Neutrophils (%) (Auto) % (45.0-75.0) Lymphocytes (%) (Auto) % (20.0-45.0) Monocytes (%) (Auto) % (1.0-10.0) Eosinophils (%) (Auto) % (0.0-3.0) Basophils (%) (Auto) % (0.0-2.0) Differential Total Cells Counted 100 Neutrophils % (Manual) 75 % (45-75) Lymphocytes % (Manual) 15 % (20-45) L Monocytes % (Manual) 7 % (1-10) Eosinophils % (Manual) 0 % (0-3) Basophils % (Manual) 3 % (0-2) H Band Neutrophils 0 % (0-8) Nucleated Red Blood Cells 1 /100 WBC Platelet Estimate Adequate Platelet Morphology Normal Hypochromasia 3+ Anisocytosis 1+ Spherocytes 1+ Prothrombin Time 11.4 SEC (9.30-11.50) Prothromb Time International Ratio 1.1 (0.9-1.1) Activated Partial Thromboplast Time 34 SEC (23-33) H Sodium Level 147 MMOL/L (136-145) #H 145 MMOL/L (136-145) Potassium Level 3.7 MMOL/L (3.5-5.1) 4.8 MMOL/L (3.5-5.1) Chloride Level 121 MMOL/L (98-107) H 118 MMOL/L (98-107) H Carbon Dioxide Level 7 MMOL/L (21-32) *L 8 MMOL/L (21-32) *L Anion Gap 19 mmol/L (5-15) H 19 mmol/L (5-15) H Blood Urea Nitrogen 93 mg/dL (7-18) H 109 mg/dL (7-18) H Creatinine 6.5 MG/DL (0.55-1.30) H 7.7 MG/DL (0.55-1.30) H Estimat Glomerular Filtration Rate 8.7 mL/min (>60) 7.1 mL/min (>60) Glucose Level 84 MG/DL (74-106) # 95 MG/DL (74-106) Lactic Acid Level 1.40 mmol/L (0.4-2.0) Calcium Level 7.0 MG/DL (8.5-10.1) #L 8.4 MG/DL (8.5-10.1) L Phosphorus Level 5.0 MG/DL (2.5-4.9) H Magnesium Level 1.8 MG/DL (1.8-2.4) 2.4 MG/DL (1.8-2.4) Arterial Blood pH 7.157 (7.350-7.450) Arterial Blood Partial Pressure CO2 20.4 mmHg (35.0-45.0) *L Arterial Blood Partial Pressure O2 72.4 mmHg (75.0-100.0) L Arterial Blood HCO3 7.1 mmol/L (22.0-26.0) *L Arterial Blood Oxygen Saturation 91.6 % (95-100) L Arterial Blood Base Excess -19.9 (-2-2) *L Mikael Test Positive Microbiology Date/Time Source Procedure Growth Status 07/28/18 21:03 Urine,Clean Catch Urine Culture - Preliminary Resulted Height (Feet): 6 Height (Inches): 0.00 Weight (Pounds): 144 Medications Current Medications Medications (Trade) Dose Ordered Sig/Dunia Route PRN Reason Start Time Stop Time Status Last Admin Dose Admin Chlorhexidine Gluconate (Eloisa-Hex 2%) 1 applic DAILY@2000 TOPIC 07/29/18 20:00 08/28/18 19:59 Dextrose (Dextrose 50%) 25 ml Q30M PRN IV HYPOGLYCEMIA 07/29/18 04:45 08/28/18 04:44 Dextrose (Dextrose 50%) 50 ml Q30M PRN IV HYPOGLYCEMIA 07/29/18 04:45 08/28/18 04:44 07/29/18 09:43 Dextrose/Sodium Chloride 1,000 ml @ 100 mls/hr Q10H IV 07/29/18 11:00 08/28/18 10:59 07/29/18 11:12 Duloxetine HCl (Cymbalta) 30 mg DAILY ORAL 07/30/18 09:00 08/29/18 08:59 Heparin Sodium (Porcine) (Heparin 5000 units/ml) 5,000 units EVERY 12 HOURS SUBQ 07/29/18 09:00 08/28/18 08:59 07/29/18 09:19 Heparin Sodium/ Sodium Chloride (Heparin 2000 units/Ns 1000ml premix) 2,000 unit ONCE PRN INJ FOR PICC PLACEMENT 07/29/18 08:00 07/30/18 23:59 Insulin Human Regular (NovoLIN R) 5 units PRN PRN IV BS 200-299 07/29/18 04:45 08/28/18 04:44 Insulin Human Regular (NovoLIN R) 10 units PRN PRN IV BS=>300 07/29/18 04:45 08/28/18 04:44 Insulin Human Regular 100 units/ Sodium Chloride 101 ml @ 0 mls/hr Q24H IV 07/29/18 07:45 08/28/18 07:44 07/29/18 07:45 Lidocaine HCl (Xylocaine 1% 30ml) 30 ml ONCE PRN INJ FOR PICC PLACEMENT 07/29/18 04:45 07/30/18 23:59 Miscellaneous Medication (Insulin Rate Change) 1 ea PRN PRN MISC Hyperglycemia 07/29/18 04:45 08/28/18 04:44 07/29/18 12:03 Pantoprazole (Protonix) 40 mg Q12HR IVP 07/29/18 21:00 08/28/18 08:59 Sevelamer Carbonate (Renvela) 800 mg THREE TIMES A DAY ORAL 07/29/18 13:00 08/28/18 12:59 07/29/18 12:10 Sodium Citrate (Bicitra) 30 ml EVERY 6 HOURS ORAL 07/29/18 12:00 08/28/18 11:59 07/29/18 12:10 Vitamin B Complex/ Vit C/Folic Acid (Nephrovite) 1 tab DAILY ORAL 07/30/18 09:00 08/29/18 08:59 Assessment/Plan Problem List: (1) encephalopathy due to metabolic do (2) Major depressive disorder ICD Codes: F32.9 - Major depressive disorder, single episode, unspecified SNOMED: [id number] Assessment/Plan cont Cymbalta 30mg qam seroquel 25mg q6hr prn agitation provided georgiana/Fatmata Kessler MD Jul 29, 2018 14:17
--- NOTE | 2018-07-29 14:19 | Consultation ---
History of Present Illness General Date patient seen: Jul 29, 2018 Chief Complaint: Abnormal Labs Present Illness HPI 63 y/o M with hx of Dm2, HLD, MDD with suicidal attempts in the past w/ resultant chronic encephalopathy, CAD/IA, BPH, anemia, asthma, colonic polyps, ESRD s/p renal and pancreas tx ~10 yrs ago, now CKD 4, ConS bacteremia/line infection, urinary retention s/p suprapubic catheter 09/2017 , recurrent hematuria, multiple hospital admissions presents to ED on 07/28 for hyperglycemia OF note, patient admitted later June 2018-Early Jul 2018 (discharged on 07/17 ) for sepsis, fever up to 103; found ot have Proteus and Kpna bacteremia and MDR PsA and proteus UTI. No fever, vomiting Allergies: Coded Allergies: CEFEPIME (Verified Allergy, Intermediate, Rash, 03/01/18) Tolerates Carbapenem Medication History Scheduled Amlodipine Besylate (Norvasc), 5 MG ORAL DAILY, (Reported) Atorvastatin Calcium* (Lipitor*), 10 MG ORAL BEDTIME Azathioprine* (Imuran*), 50 MG PO DAILY, (Reported) Clindamycin HCl (Clindamycin HCl), 150 MG ORAL EVERY 6 HOURS Daptomycin (DAPTOmycin), 350 MG IV EVERY OTHER DAY Docusate Sodium* (Colace*), 100 MG ORAL TWICE A DAY, (Reported) Duloxetine Hcl* (Cymbalta*), 30 MG ORAL DAILY, (Reported) Ertapenem Sodium* (INVanz*), 1 GM IVPB DAILY, (Reported) Insulin Aspart (Novolog Flexpen), 6 UNITS SUBQ NOVOTIAC Insulin Detemir (Levemir Flexpen), 12 UNITS SUBQ BID Insulin Detemir (Levemir Flextouch), 12 UNIT SQ BID, (Reported) Magnesium Hydroxide* (Milk Of Magnesia*), 30 ML ORAL DAILY, (Reported) Meropenem (Meropenem), 1 GM IV EVERY 12 HOURS Meropenem-0.9% Sodium Chloride (Meropenem-0.9% NaCl 500 mg/50), 500 MG IV DAILY Metoprolol Succinate* (Metoprolol Succinate*), 50 MG ORAL Q12HR, (Reported) Metoprolol Succinate* (Metoprolol Succinate*), 12.5 MG ORAL DAILY, (Reported) Omeprazole (Omeprazole), 20 MG ORAL DAILY, (Reported) Polyethylene Glycol 3350* (Miralax*), 17 GM ORAL DAILY, (Reported) Polyethylene Glycol* (Miralax*), 17 GM ORAL BEDTIME Sevelamer Carbonate* (Renvela*), 800 MG ORAL THREE TIMES A DAY, (Reported) Tamsulosin Hcl (Tamsulosin Hcl*), 8 MG ORAL BEDTIME, (Reported) Vitamin B Cmplx/Vit C/Folic AC (Nephro-Enedina Tablet), 1 TAB ORAL DAILY, (Reported ) Vitamin D (Vitamin D3), 5,000 UNITS ORAL DAILY, (Reported) Scheduled PRN Acetaminophen* (Acetaminophen 325MG Tablet*), 650 MG ORAL Q6H PRN for For Pain, (Reported) Hydrocortisone (Hydrocortisone), 1 % TP BID PRN for Itching, (Reported) Ondansetron* (Zofran*), 4 MG ORAL Q6H PRN for Nausea & Vomiting, (Reported) Miscellaneous Medications Bisacodyl (Dulcolax), 10 MG RC, (Reported) Insulin Aspart (Novolog Flexpen), (Reported) Patient History Healthcare decision maker Resuscitation status Do Not Resuscitate Advanced Directive on File No Patient History Narrative Pmhx: as above Shx: reviewed Fhx:non contributory Review of Systems ROS Narrative unable to obtain Physical Exam Physical Exam Narrative Status: awake Condition: critical HEENT: atraumatic Lungs: chest wall tender Heart: HR/BP stable Abdomen: soft, non-tender Extremities: no C/C/E Decubiti: location Last 24 Hour Vital Signs Date Time Temp Pulse Resp B/P (MAP) Pulse Ox O2 Delivery O2 Flow Rate FiO2 07/29/18 12:00 77 07/29/18 12:00 Room Air 07/29/18 12:00 98.0 77 20 83/33 100 Room Air 07/29/18 11:00 90 20 106/49 100 Room Air 07/29/18 10:00 77 20 88/46 100 Room Air 07/29/18 09:00 77 20 80/39 100 Room Air 07/29/18 09:00 74 07/29/18 08:00 98.5 77 20 110/54 100 Room Air 07/29/18 08:00 Room Air 07/29/18 07:00 74 20 100/50 100 Room Air 07/29/18 06:00 74 20 101/42 100 Room Air 07/29/18 05:00 81 20 100/37 100 Room Air 07/29/18 04:00 Room Air 07/29/18 04:00 98.1 77 20 99/34 100 Room Air 07/29/18 03:00 71 20 50/25 100 Room Air 07/29/18 02:58 68 07/29/18 02:38 77 18 69/24 100 Room Air 07/29/18 02:36 75 21 79/26 100 Room Air 07/29/18 02:22 79 17 96/41 100 Room Air 07/29/18 02:20 77 18 92/30 100 Room Air 07/29/18 02:15 81 23 56/27 98 Room Air 07/29/18 02:00 79 19 74/38 100 Room Air 07/29/18 01:30 97.9 70 18 111/55 99 Room Air 07/29/18 01:20 Room Air 07/29/18 01:20 Room Air 07/29/18 01:14 98.0 19 100/75 100 Room Air 07/29/18 01:10 97.9 70 18 111/55 99 Room Air 07/29/18 01:10 97.9 70 18 111/55 99 Room Air 07/28/18 23:27 97.9 73 18 110/50 99 Room Air 07/28/18 22:10 97.9 69 18 100/50 93 Room Air 07/28/18 20:11 97.9 71 18 104/41 93 Room Air 07/28/18 20:04 97.9 85 18 104/41 93 Room Air Intake and Output 07/28/18 07/29/18 18:59 06:59 Intake Total 890.2 ml Output Total 531 ml Balance 359.2 ml Intake Oral 0 ml IV Total 890.2 ml Output Urine Total 530 ml Stool Total 1 ml # Bowel Movements 3 Laboratory Tests Test 07/28/18 21:03 07/28/18 22:54 07/29/18 00:50 07/29/18 05:15 White Blood Count 14.5 K/UL (4.8-10.8) H Red Blood Count 3.26 M/UL (4.70-6.10) L Hemoglobin 10.0 G/DL (14.2-18.0) L Hematocrit 32.0 % (42.0-52.0) L Mean Corpuscular Volume 98 FL (80-99) Mean Corpuscular Hemoglobin 30.8 PG (27.0-31.0) Mean Corpuscular Hemoglobin Concent 31.4 G/DL (32.0-36.0) L Red Cell Distribution Width 14.6 % (11.6-14.8) Platelet Count 271 K/UL (150-450) Mean Platelet Volume 6.4 FL (6.5-10.1) L Neutrophils (%) (Auto) 82.2 % (45.0-75.0) H Lymphocytes (%) (Auto) 7.8 % (20.0-45.0) L Monocytes (%) (Auto) 9.3 % (1.0-10.0) Eosinophils (%) (Auto) 0.0 % (0.0-3.0) Basophils (%) (Auto) 0.6 % (0.0-2.0) Prothrombin Time 10.5 SEC (9.30-11.50) Prothromb Time International Ratio 1.0 (0.9-1.1) Activated Partial Thromboplast Time 32 SEC (23-33) Urine Color Pale yellow Pale yellow Urine Appearance Very cloudy Cloudy Urine pH 5 (4.5-8.0) 6 (4.5-8.0) Urine Specific [place] 1.015 (1.005-1.035) 1.015 (1.005-1.035) Urine Protein 3+ (NEGATIVE) H 4+ (NEGATIVE) H Urine Glucose (UA) 4+ (NEGATIVE) H 3+ (NEGATIVE) H Urine Ketones 2+ (NEGATIVE) H Negative (NEGATIVE) Urine Blood 5+ (NEGATIVE) H 5+ (NEGATIVE) H Urine Nitrite Negative (NEGATIVE) Negative (NEGATIVE) Urine Bilirubin Negative (NEGATIVE) Negative (NEGATIVE) Urine Urobilinogen Normal MG/DL (0.0-1.0) Normal MG/DL (0.0-1.0) Urine Leukocyte Esterase 3+ (NEGATIVE) H 3+ (NEGATIVE) H Urine RBC 5-10 /HPF (0 - 0) H Tntc /HPF (0 - 0) H Urine WBC Tntc /HPF (0 - 0) H Tntc /HPF (0 - 0) H Urine Squamous Epithelial Cells None /LPF (NONE/OCC) Occasional /LPF Urine Bacteria Moderate /HPF (NONE) H Few /HPF (NONE) Urine Yeast Many /HPF (NONE) H Sodium Level 135 MMOL/L (136-145) L Potassium Level 6.3 MMOL/L (3.5-5.1) *H Chloride Level 109 MMOL/L (98-107) H Carbon Dioxide Level 7 MMOL/L (21-32) *L Anion Gap 19 mmol/L (5-15) H Blood Urea Nitrogen 123 mg/dL (7-18) H Creatinine 9.0 MG/DL (0.55-1.30) H Estimat Glomerular Filtration Rate 6.0 mL/min (>60) Glucose Level 616 MG/DL (74-106) *H Lactic Acid Level 2.40 mmol/L (0.4-2.0) H 2.70 mmol/L (0.66-2.22) H Calcium Level 8.8 MG/DL (8.5-10.1) Magnesium Level 2.7 MG/DL (1.8-2.4) H Total Bilirubin 0.3 MG/DL (0.2-1.0) Aspartate Amino Transf (AST/SGOT) 10 U/L (15-37) L Alanine Aminotransferase (ALT/SGPT) 11 U/L (12-78) L Alkaline Phosphatase 118 U/L (46-116) H Total Creatine Kinase 51 U/L (26-308) Troponin I 0.106 ng/mL (0.000-0.056) Pro-B-Type Natriuretic Peptide 5666 pg/mL (0-125) H Total Protein 6.7 G/DL (6.4-8.2) Albumin 2.6 G/DL (3.4-5.0) L Globulin 4.1 g/dL Albumin/Globulin Ratio 0.6 (1.0-2.7) L Arterial Blood pH 7.055 (7.350-7.450) Arterial Blood Partial Pressure CO2 17.5 mmHg (35.0-45.0) *L Arterial Blood Partial Pressure O2 97.1 mmHg (75.0-100.0) Arterial Blood HCO3 4.8 mmol/L (22.0-26.0) *L Arterial Blood Oxygen Saturation 95.4 % (95-100) Arterial Blood Base Excess -23.7 (-2-2) *L Mikael Test Positive Test 07/29/18 05:29 07/29/18 08:10 07/29/18 13:00 White Blood Count 8.0 K/UL (4.8-10.8) Red Blood Count 2.30 M/UL (4.70-6.10) L Hemoglobin 7.1 G/DL (14.2-18.0) L Hematocrit 21.9 % (42.0-52.0) #L Mean Corpuscular Volume 95 FL (80-99) Mean Corpuscular Hemoglobin 31.0 PG (27.0-31.0) Mean Corpuscular Hemoglobin Concent 32.7 G/DL (32.0-36.0) Red Cell Distribution Width 14.0 % (11.6-14.8) Platelet Count 218 K/UL (150-450) Mean Platelet Volume 6.8 FL (6.5-10.1) Neutrophils (%) (Auto) % (45.0-75.0) Lymphocytes (%) (Auto) % (20.0-45.0) Monocytes (%) (Auto) % (1.0-10.0) Eosinophils (%) (Auto) % (0.0-3.0) Basophils (%) (Auto) % (0.0-2.0) Differential Total Cells Counted 100 Neutrophils % (Manual) 75 % (45-75) Lymphocytes % (Manual) 15 % (20-45) L Monocytes % (Manual) 7 % (1-10) Eosinophils % (Manual) 0 % (0-3) Basophils % (Manual) 3 % (0-2) H Band Neutrophils 0 % (0-8) Nucleated Red Blood Cells 1 /100 WBC Platelet Estimate Adequate Platelet Morphology Normal Hypochromasia 3+ Anisocytosis 1+ Spherocytes 1+ Prothrombin Time 11.4 SEC (9.30-11.50) Prothromb Time International Ratio 1.1 (0.9-1.1) Activated Partial Thromboplast Time 34 SEC (23-33) H Sodium Level 147 MMOL/L (136-145) #H 145 MMOL/L (136-145) Potassium Level 3.7 MMOL/L (3.5-5.1) 4.8 MMOL/L (3.5-5.1) Chloride Level 121 MMOL/L (98-107) H 118 MMOL/L (98-107) H Carbon Dioxide Level 7 MMOL/L (21-32) *L 8 MMOL/L (21-32) *L Anion Gap 19 mmol/L (5-15) H 19 mmol/L (5-15) H Blood Urea Nitrogen 93 mg/dL (7-18) H 109 mg/dL (7-18) H Creatinine 6.5 MG/DL (0.55-1.30) H 7.7 MG/DL (0.55-1.30) H Estimat Glomerular Filtration Rate 8.7 mL/min (>60) 7.1 mL/min (>60) Glucose Level 84 MG/DL (74-106) # 95 MG/DL (74-106) Lactic Acid Level 1.40 mmol/L (0.4-2.0) Calcium Level 7.0 MG/DL (8.5-10.1) #L 8.4 MG/DL (8.5-10.1) L Phosphorus Level 5.0 MG/DL (2.5-4.9) H Magnesium Level 1.8 MG/DL (1.8-2.4) 2.4 MG/DL (1.8-2.4) Arterial Blood pH 7.157 (7.350-7.450) Arterial Blood Partial Pressure CO2 20.4 mmHg (35.0-45.0) *L Arterial Blood Partial Pressure O2 72.4 mmHg (75.0-100.0) L Arterial Blood HCO3 7.1 mmol/L (22.0-26.0) *L Arterial Blood Oxygen Saturation 91.6 % (95-100) L Arterial Blood Base Excess -19.9 (-2-2) *L Mikael Test Positive Microbiology Date/Time Source Procedure Growth Status 07/28/18 21:03 Urine,Clean Catch Urine Culture - Preliminary Resulted Height (Feet): 6 Height (Inches): 0.00 Weight (Pounds): 144 Medications Current Medications Medications (Trade) Dose Ordered Sig/Dunia Route PRN Reason Start Time Stop Time Status Last Admin Dose Admin Chlorhexidine Gluconate (Eloisa-Hex 2%) 1 applic DAILY@2000 TOPIC 07/29/18 20:00 08/28/18 19:59 Dextrose (Dextrose 50%) 25 ml Q30M PRN IV HYPOGLYCEMIA 07/29/18 04:45 08/28/18 04:44 Dextrose (Dextrose 50%) 50 ml Q30M PRN IV HYPOGLYCEMIA 07/29/18 04:45 08/28/18 04:44 07/29/18 09:43 Dextrose/Sodium Chloride 1,000 ml @ 100 mls/hr Q10H IV 07/29/18 11:00 08/28/18 10:59 07/29/18 11:12 Duloxetine HCl (Cymbalta) 30 mg DAILY ORAL 07/30/18 09:00 08/29/18 08:59 Heparin Sodium (Porcine) (Heparin 5000 units/ml) 5,000 units EVERY 12 HOURS SUBQ 07/29/18 09:00 08/28/18 08:59 07/29/18 09:19 Heparin Sodium/ Sodium Chloride (Heparin 2000 units/Ns 1000ml premix) 2,000 unit ONCE PRN INJ FOR PICC PLACEMENT 07/29/18 08:00 07/30/18 23:59 Insulin Human Regular (NovoLIN R) 5 units PRN PRN IV BS 200-299 07/29/18 04:45 08/28/18 04:44 Insulin Human Regular (NovoLIN R) 10 units PRN PRN IV BS=>300 07/29/18 04:45 08/28/18 04:44 Insulin Human Regular 100 units/ Sodium Chloride 101 ml @ 0 mls/hr Q24H IV 07/29/18 07:45 08/28/18 07:44 07/29/18 07:45 Lidocaine HCl (Xylocaine 1% 30ml) 30 ml ONCE PRN INJ FOR PICC PLACEMENT 07/29/18 04:45 07/30/18 23:59 Miscellaneous Medication (Insulin Rate Change) 1 ea PRN PRN MISC Hyperglycemia 07/29/18 04:45 08/28/18 04:44 07/29/18 12:03 Pantoprazole (Protonix) 40 mg Q12HR IVP 07/29/18 21:00 08/28/18 08:59 Sevelamer Carbonate (Renvela) 800 mg THREE TIMES A DAY ORAL 07/29/18 13:00 08/28/18 12:59 07/29/18 12:10 Sodium Citrate (Bicitra) 30 ml EVERY 6 HOURS ORAL 07/29/18 12:00 08/28/18 11:59 07/29/18 12:10 Vitamin B Complex/ Vit C/Folic Acid (Nephrovite) 1 tab DAILY ORAL 07/30/18 09:00 08/29/18 08:59 Assessment/Plan Assessment/Plan Abx: Zosyn x1 07/28 Assessment: Severe sepsis -likely 2ry to UTI- r/o bacteremia -u.a wbc tntc, nit neg, luek +3; ucx p -Bcx p -CXR: Suspected atelectasis or scarring right Afebrile Leukocytosis, SP DKA RIVKA, improving hx of recent sepsis 2ry to UTI and bacteremia 07/08/18 UCx - P.a. MDR and Providencia 07/08/18 BCx ESBL Proteus and K. pneumo Dm2 HLD MDD with suicidal attempts in the past w/ resultant chronic encephalopathy CAD/IA BPH anemia asthma colonic polyps ESRD s/p renal and pancreas tx ~10 yrs ago now CKD 4 ConS bacteremia/line infection urinary retention s/p suprapubic catheter 09/2017 recurrent hematuria multiple hospital admissions recurrent UTI DNR Plan: -Start Meropenem and give one dose Amikacin pending cultuers -07/22 SP Meropenem, #14 -f/u cx -Monitor CBC/CMP, temperatures Thank you for this consultation. Will continue to follow along with you. Discussed with Monique Sellers M.D. Jul 29, 2018 14:19
--- NOTE | 2018-07-29 15:05 | NUR ---
NURSE NOTES: Dr Read made aware pt allergy to Cefepime as stated"its ok to give Meropenem".Pt kept on close monitoring.
--- NOTE | 2018-07-29 15:15 | NUR ---
NURSE NOTES: Noted with decrease urine output, bladder scan done and zero cc.Abdomen soft and non distended. Will continue to monitor.
[2018-07-29] MEDS ORDERED: Amikacin 500 MG in NS 110 ML IV ONE (15:30)
[2018-07-29] MEDS: Meropenem 500 MG in NS 55 ML IVPB SCH (15:42)
--- NOTE | 2018-07-29 15:46 | Cardiology Report ---
APPROVED REPORT EKG Measurement Heart [id number] Normal sinus rhythm Left anterior fascicular block Abnormal ECG
--- NOTE | 2018-07-29 16:01 | NUR ---
NURSE NOTES: Patient asleep, no acute distress, remains on insulin drip algorithm 1 at 1u/hr.Kept on close monitoring
--- NOTE | 2018-07-29 17:37 | NUR ---
NURSE NOTES: Seen by Dr Read will follow up with news orders
--- NOTE | 2018-07-29 18:03 | History & Physical ---
History and Physical History & Physicial Patient: LEROY GOTTLIEB [facility] Rec #: [id number] DATE OF ADMISSION: 07/29/2018 CHIEF COMPLAINT: alter mental status and abnormal labs. HISTORY OF PRESENT ILLNESS: This is a 63-year-old gentleman with past medical history significant for diabetes type 1 with recurrent ketoacidosis without coma, history of hypertension, chronic kidney disease with failed kidney transplant, coronary artery disease, gastroesophageal reflux disease, atherosclerotic heart disease, BPH, history of dyslipidemia, left eye blindness, major depression, secondary hyperparathyroidism, status post combination of the [facility] with worsening of renal allograft function with advanced chronic kidney disease. The patient underwent bilateral nephrectomy with Dr. Bret Gil on 06/28/2015 at [facility], who presented to the hospital from nursing facility due to alter mental status and abnormal labs. Noted elevated glucose and metabolic acidosis, shortly after initial evaluation in the emergency, was admitted to the hospital DKA and acute encephalopathy. PAST MEDICAL HISTORY/PAST SURGICAL HISTORY: As above, history of diabetes type 1 with DKA, hypertension, small bowel obstruction, secondary hyperparathyroidism, status post combined kidney [facility] with failed pancreatic transplant, progressive worsening of allograft kidney, history of advanced chronic kidney disease stage 4, anemia of chronic kidney disease, atherosclerotic heart disease, depression, BPH, left eye blindness, and bilateral nephrectomy at [facility] on 06/28/2015. MEDICATIONS: Medications Dose Route/Sig Max Daily Dose Days Date Category Dulcolax (Bisacodyl) 10 Mg Supp.rect 10 Mg RC 07/28/18 Reported Milk Of Magnesia* (Magnesium Hydroxide) 2,400 Mg/10 Ml Oral.susp 30 Ml ORAL DAILY 07/28/18 Reported Novolog Flexpen (Insulin Aspart) 100 Unit/1 Ml Insuln.pen 07/28/18 Reported Levemir Flextouch (Insulin Detemir) 100 Unit/1 Ml Insuln.pen 12 Unit SQ BID 07/28/18 Reported Meropenem 1 Gm Vial 1 Gm IV EVERY 12 HOURS 7 07/15/18 Rx Vitamin D3 (Vitamin D) 400 Unit Tablet 5,000 Units ORAL DAILY 07/08/18 Reported Metoprolol Succinate* (Metoprolol Succinate) 25 Mg Tab.er.24h 12.5 Mg ORAL DAILY 07/08/18 Reported Tamsulosin Hcl* (Tamsulosin HCl) 0.4 Mg Cap.er.24h 8 Mg ORAL BEDTIME 07/08/18 Reported Omeprazole 20 Mg Capsule.dr 20 Mg ORAL DAILY 07/08/18 Reported Colace* (Docusate Sodium) 100 Mg Capsule 100 Mg ORAL TWICE A DAY 07/08/18 Reported INVanz* (Ertapenem) 1 Gm Vial.port 1 Gm IVPB DAILY 5 03/30/18 Reported Clindamycin HCl 300 Mg Capsule 150 Mg ORAL EVERY 6 HOURS 5 03/30/18 Rx Acetaminophen 325MG Tablet* (Acetaminophen) 325 Mg Tablet 650 Mg ORAL Q6H PRN 03/23/18 Reported Miralax* (Polyethylene Glycol) 17 Gm Powd.pack 17 Gm ORAL DAILY 03/23/18 Reported Meropenem-0.9% NaCl 500 mg/50 (Meropenem-0.9% Sodium Chloride) 500 Mg/50 Ml Piggyback 500 Mg IV DAILY 7 03/04/18 Rx DAPTOmycin (Daptomycin) 350 Mg Vial 350 Mg IV EVERY OTHER DAY 7 03/04/18 Rx Hydrocortisone 28.35 Gm Cream..g. 1 % TP BID PRN 02/28/18 Reported Nephro-Enedina Tablet (Vitamin B Complex/Vit C/Folic Acid) 0.8 Mg Tablet 1 Tab ORAL DAILY 02/28/18 Reported Zofran* (Ondansetron HCl) 4 Mg Tablet 4 Mg ORAL Q6H PRN 02/05/18 Reported Levemir Flexpen (Insulin Detemir) 100 Unit/1 Ml Insuln.pen 12 Units SUBQ BID 30 11/02/17 Rx Novolog Flexpen (Insulin Aspart) 100 Unit/1 Ml Insuln.pen 6 Units SUBQ NOVOTIAC 30 11/02/17 Rx Imuran* (Azathioprine) 50 Mg Tablet 50 Mg PO DAILY 07/15/16 Reported Renvela* (Sevelamer Carbonate) 0.8 Gm Powd.pack 800 Mg ORAL THREE TIMES A DAY 04/11/15 Reported Miralax* (Polyethylene Glycol) 17 Gm Pack 17 Gm ORAL BEDTIME 30 03/04/15 Rx Lipitor* (Atorvastatin Calcium) 10 Mg Tab 10 Mg ORAL BEDTIME 30 03/04/15 Rx Cymbalta* (Duloxetine HCl) 30 Mg Capsule.dr 30 Mg ORAL DAILY 12/28/13 Reported Norvasc (Amlodipine Besylate) 5 Mg Tab 5 Mg ORAL DAILY 12/06/13 Reported Metoprolol Succinate* (Metoprolol Succinate) 50 Mg Tab.er.24h 50 Mg ORAL Q12HR 12/06/13 Reported ALLERGIES: No known drug allergies. SOCIAL HISTORY: The patient grew up in [place], spent many years in [place]. Never , single. 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 Attempted suicide in January 2013 and failed. No smoking, alcohol, or drugs at this time. No contact family, brother or sister. FAMILY HISTORY: Significant for mother is alive as well as father alive, history of myocardial infarction in their 40s. One brother alive in 44 with coronary artery disease. REVIEW OF SYSTEMS: Very limited secondary to the patient's status. No nausea or vomiting at this time. No loss of consciousness. No fall or head trauma. PHYSICAL EXAMINATION: Last 24 Hour Vital Signs Date Time Temp Pulse Resp B/P (MAP) Pulse Ox O2 Delivery O2 Flow Rate FiO2 07/29/18 17:00 98 20 115/46 100 Room Air 07/29/18 17:00 99 20 115/46 100 Room Air 07/29/18 16:00 98.0 90 20 100/49 100 Room Air 07/29/18 16:00 100 20 100/49 100 Room Air 07/29/18 16:00 79 07/29/18 16:00 Room Air 07/29/18 15:00 79 20 104/36 100 Room Air 07/29/18 14:00 90 20 102/82 100 Room Air 07/29/18 13:00 90 20 88/38 100 Room Air 07/29/18 12:00 77 07/29/18 12:00 Room Air 07/29/18 12:00 98.0 77 20 83/33 100 Room Air 07/29/18 11:00 90 20 106/49 100 Room Air 07/29/18 10:00 77 20 88/46 100 Room Air 07/29/18 09:00 77 20 80/39 100 Room Air 07/29/18 09:00 74 07/29/18 08:00 98.5 77 20 110/54 100 Room Air 07/29/18 08:00 Room Air 07/29/18 07:00 74 20 100/50 100 Room Air 07/29/18 06:00 74 20 101/42 100 Room Air 07/29/18 05:00 81 20 100/37 100 Room Air 07/29/18 04:00 Room Air 07/29/18 04:00 98.1 77 20 99/34 100 Room Air 07/29/18 03:00 71 20 50/25 100 Room Air 07/29/18 02:58 68 07/29/18 02:38 77 18 69/24 100 Room Air 07/29/18 02:36 75 21 79/26 100 Room Air 07/29/18 02:22 79 17 96/41 100 Room Air 07/29/18 02:20 77 18 92/30 100 Room Air 07/29/18 02:15 81 23 56/27 98 Room Air 07/29/18 02:00 79 19 74/38 100 Room Air 07/29/18 01:30 97.9 70 18 111/55 99 Room Air 07/29/18 01:20 Room Air 07/29/18 01:20 Room Air 07/29/18 01:14 98.0 19 100/75 100 Room Air 07/29/18 01:10 97.9 70 18 111/55 99 Room Air 07/29/18 01:10 97.9 70 18 111/55 99 Room Air 07/28/18 23:27 97.9 73 18 110/50 99 Room Air 07/28/18 22:10 97.9 69 18 100/50 93 Room Air 07/28/18 20:11 97.9 71 18 104/41 93 Room Air 07/28/18 20:04 97.9 85 18 104/41 93 Room Air GENERAL: The patient is awake and responsive but confused, in no acute distress. HEAD AND NECK: Pupils are equal and reactive to light. Extraocular movements are intact in the right eye. Left eye blindness, Neck was supple. No JVD. LUNGS: fair air entry. No wheezing or rales. HEART: S1 and S2. Distant heart sounds. No Murmur or gallops. ABDOMEN: Soft, nontender, and nontender. Suprapubic catheter was noted. EXTREMITIES: No cyanosis or clubbing. Bilateral lower extremity trace LE's edema. NEUROLOGIC: Cranial nerves II through XII grossly intact. Motor is 5/5 in all extremities. Gait was not assessed due to the patient's status. LABORATORY AND DIAGNOSTIC DATA: Test 07/28/18 21:03 07/28/18 22:54 07/29/18 00:50 07/29/18 05:15 White Blood Count 14.5 K/UL (4.8-10.8) Red Blood Count 3.26 M/UL (4.70-6.10) Hemoglobin 10.0 G/DL (14.2-18.0) Hematocrit 32.0 % (42.0-52.0) Mean Corpuscular Volume 98 FL (80-99) Mean Corpuscular Hemoglobin 30.8 PG (27.0-31.0) Mean Corpuscular Hemoglobin Concent 31.4 G/DL (32.0-36.0) Red Cell Distribution Width 14.6 % (11.6-14.8) Platelet Count 271 K/UL (150-450) Mean Platelet Volume 6.4 FL (6.5-10.1) Neutrophils (%) (Auto) 82.2 % (45.0-75.0) Lymphocytes (%) (Auto) 7.8 % (20.0-45.0) Monocytes (%) (Auto) 9.3 % (1.0-10.0) Eosinophils (%) (Auto) 0.0 % (0.0-3.0) Basophils (%) (Auto) 0.6 % (0.0-2.0) Prothrombin Time 10.5 SEC (9.30-11.50) Prothromb Time International Ratio 1.0 (0.9-1.1) Activated Partial Thromboplast Time 32 SEC (23-33) Urine Color Pale yellow Pale yellow Urine Appearance Very cloudy Cloudy Urine pH 5 (4.5-8.0) 6 (4.5-8.0) Urine Specific [place] 1.015 (1.005-1.035) 1.015 (1.005-1.035) Urine Protein 3+ (NEGATIVE) 4+ (NEGATIVE) Urine Glucose (UA) 4+ (NEGATIVE) 3+ (NEGATIVE) Urine Ketones 2+ (NEGATIVE) Negative (NEGATIVE) Urine Blood 5+ (NEGATIVE) 5+ (NEGATIVE) Urine Nitrite Negative (NEGATIVE) Negative (NEGATIVE) Urine Bilirubin Negative (NEGATIVE) Negative (NEGATIVE) Urine Urobilinogen Normal MG/DL (0.0-1.0) Normal MG/DL (0.0-1.0) Urine Leukocyte Esterase 3+ (NEGATIVE) 3+ (NEGATIVE) Urine RBC 5-10 /HPF (0 - 0) Tntc /HPF (0 - 0) Urine WBC Tntc /HPF (0 - 0) Tntc /HPF (0 - 0) Urine Squamous Epithelial Cells None /LPF (NONE/OCC) Occasional /LPF Urine Bacteria Moderate /HPF (NONE) Few /HPF (NONE) Urine Yeast Many /HPF (NONE) Sodium Level 135 MMOL/L (136-145) Potassium Level 6.3 MMOL/L (3.5-5.1) Chloride Level 109 MMOL/L (98-107) Carbon Dioxide Level 7 MMOL/L (21-32) Anion Gap 19 mmol/L (5-15) Blood Urea Nitrogen 123 mg/dL (7-18) Creatinine 9.0 MG/DL (0.55-1.30) Estimat Glomerular Filtration Rate 6.0 mL/min (>60) Glucose Level 616 MG/DL (74-106) Lactic Acid Level 2.40 mmol/L (0.4-2.0) 2.70 mmol/L (0.66-2.22) Calcium Level 8.8 MG/DL (8.5-10.1) Magnesium Level 2.7 MG/DL (1.8-2.4) Total Bilirubin 0.3 MG/DL (0.2-1.0) Aspartate Amino Transf (AST/SGOT) 10 U/L (15-37) Alanine Aminotransferase (ALT/SGPT) 11 U/L (12-78) Alkaline Phosphatase 118 U/L (46-116) Total Creatine Kinase 51 U/L (26-308) Troponin I 0.106 ng/mL (0.000-0.056) Pro-B-Type Natriuretic Peptide 5666 pg/mL (0-125) Total Protein 6.7 G/DL (6.4-8.2) Albumin 2.6 G/DL (3.4-5.0) Globulin 4.1 g/dL Albumin/Globulin Ratio 0.6 (1.0-2.7) Arterial Blood pH 7.055 (7.350-7.450) Arterial Blood Partial Pressure CO2 17.5 mmHg (35.0-45.0) Arterial Blood Partial Pressure O2 97.1 mmHg (75.0-100.0) Arterial Blood HCO3 4.8 mmol/L (22.0-26.0) Arterial Blood Oxygen Saturation 95.4 % (95-100) Arterial Blood Base Excess -23.7 (-2-2) Mikael Test Positive Test 07/29/18 05:29 07/29/18 08:10 07/29/18 13:00 White Blood Count 8.0 K/UL (4.8-10.8) Red Blood Count 2.30 M/UL (4.70-6.10) Hemoglobin 7.1 G/DL (14.2-18.0) Hematocrit 21.9 % (42.0-52.0) Mean Corpuscular Volume 95 FL (80-99) Mean Corpuscular Hemoglobin 31.0 PG (27.0-31.0) Mean Corpuscular Hemoglobin Concent 32.7 G/DL (32.0-36.0) Red Cell Distribution Width 14.0 % (11.6-14.8) Platelet Count 218 K/UL (150-450) Mean Platelet Volume 6.8 FL (6.5-10.1) Neutrophils (%) (Auto) % (45.0-75.0) Lymphocytes (%) (Auto) % (20.0-45.0) Monocytes (%) (Auto) % (1.0-10.0) Eosinophils (%) (Auto) % (0.0-3.0) Basophils (%) (Auto) % (0.0-2.0) Differential Total Cells Counted 100 Neutrophils % (Manual) 75 % (45-75) Lymphocytes % (Manual) 15 % (20-45) Monocytes % (Manual) 7 % (1-10) Eosinophils % (Manual) 0 % (0-3) Basophils % (Manual) 3 % (0-2) Band Neutrophils 0 % (0-8) Nucleated Red Blood Cells 1 /100 WBC Platelet Estimate Adequate Platelet Morphology Normal Hypochromasia 3+ Anisocytosis 1+ Spherocytes 1+ Prothrombin Time 11.4 SEC (9.30-11.50) Prothromb Time International Ratio 1.1 (0.9-1.1) Activated Partial Thromboplast Time 34 SEC (23-33) Sodium Level 147 MMOL/L (136-145) 145 MMOL/L (136-145) Potassium Level 3.7 MMOL/L (3.5-5.1) 4.8 MMOL/L (3.5-5.1) Chloride Level 121 MMOL/L (98-107) 118 MMOL/L (98-107) Carbon Dioxide Level 7 MMOL/L (21-32) 8 MMOL/L (21-32) Anion Gap 19 mmol/L (5-15) 19 mmol/L (5-15) Blood Urea Nitrogen 93 mg/dL (7-18) 109 mg/dL (7-18) Creatinine 6.5 MG/DL (0.55-1.30) 7.7 MG/DL (0.55-1.30) Estimat Glomerular Filtration Rate 8.7 mL/min (>60) 7.1 mL/min (>60) Glucose Level 84 MG/DL (74-106) 95 MG/DL (74-106) Lactic Acid Level 1.40 mmol/L (0.4-2.0) Calcium Level 7.0 MG/DL (8.5-10.1) 8.4 MG/DL (8.5-10.1) Phosphorus Level 5.0 MG/DL (2.5-4.9) Magnesium Level 1.8 MG/DL (1.8-2.4) 2.4 MG/DL (1.8-2.4) Arterial Blood pH 7.157 (7.350-7.450) Arterial Blood Partial Pressure CO2 20.4 mmHg (35.0-45.0) Arterial Blood Partial Pressure O2 72.4 mmHg (75.0-100.0) Arterial Blood HCO3 7.1 mmol/L (22.0-26.0) Arterial Blood Oxygen Saturation 91.6 % (95-100) Arterial Blood Base Excess -19.9 (-2-2) Mikael Test Positive Chest x-ray was noted to be cardiomegaly. No definitive acute process. ASSESSMENT: 1. DKA. 2. Hypertension. 3. Dyslipidemia. 4. Diabetes type 1 with prior history of diabetic ketoacidosis. 5. Diabetic retinopathy of the left eye blindness. 6. End-stage renal disease secondary to diabetic nephrosclerosis. 7. Coronary artery disease with prior history of myocardial infarction. 8. 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 9. 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 10. Secondary hyperparathyroidism with vitamin D deficiency. 11. Anemia of chronic kidney disease. 12. Metabolic acidosis. 13. Depression with prior suicide attempt. 14. Acute encephalopathy due to toxic metabolic encephalopathy due to DKA. PLAN: 1. Admit the patient to ICU. 2. Code status is DNR/DNI as per POLST in the chart. 3. Resume longterm medications. 4. Follow up with Labs and culture. 5. Broad spectrum antibiotic with Meropenem. 6. DVT prophylaxis, heparin subcutaneous. 7. We will follow up with Dr. Delgado with critical care , Dr. Chambers from Nephrology and Dr. Rich Wick from Infectious Disease. 8. We will follow up with the cultures and laboratory in the morning. 9. DKA protocol. We have reviewed the records from [facility] from recent admission on 05/01/2018 and placed it in the chart. Christopher Rosado M.D. Christopher Rosado MD Jul 29, 2018 18:03
[2018-07-29 18:25] LABS: ALANINE AMINOTRANSFERASE 9 U/L (12-78); ALBUMIN/GLOBULIN RATIO 0.6 (1.0-2.7); ALKALINE PHOSPHATASE 74 U/L (46-116); ANION GAP 19 mmol/L (5-15); ASPARTATE AMINO TRANSFERASE 10 U/L (15-37); BILIRUBIN,TOTAL 0.3 MG/DL (0.2-1.0); BLOOD UREA NITROGEN 112 mg/dL (7-18); CALCIUM 8.3 MG/DL (8.5-10.1); CHLORIDE 119 MMOL/L (98-107); CREATININE 7.9 MG/DL (0.55-1.30); POTASSIUM 4.8 MMOL/L (3.5-5.1); SODIUM 145 MMOL/L (136-145)
--- NOTE | 2018-07-29 18:28 | NUR ---
NURSE NOTES: Pt help in self repositioning.Seen by Dr Rosado made aware of the past 4 hours accu check result with order to follow protocol as accu-check Q2hrs and continue the drip.On algorithm 1 at this time at 0.8 unit/hr. Addendum: 07/29/18 at 1833 by Delmy Nino RN PT ADLS PROVIDED,REFUSED DINNER.
[2018-07-29 18:29] LABS: CARBON DIOXIDE 7 MMOL/L (21-32)
--- NOTE | 2018-07-29 19:40 | NUR ---
NURSE NOTES: Received pt in bed with eyes closed. Sinus rhythm on the monitor. On room air at this time. No SOB or pain noted at this time. PIV intact currently on insulin gtt algo rhythm 1. As per NICOLE Mohr pt is to remain on Algo 1 until morning labs are drawn. BS are being check every 2 hrs now. Suprapubic cath noted with very little urine output at this time. Perineal redness noted and redness noted at suprapubic cath area. Pt contracted. On contact isolation, bed in lowest positions, side rails upx3. Bed alarm on. No signs of distress noted. Will continue with plan of care.
--- NOTE | 2018-07-29 19:49 | NUR ---
NURSE NOTES: Notified MD Delgado about bp 73/37. orders NS bolus 1L.
[2018-07-29] MEDS ORDERED: Dyna-Hex 2% Top Sol 2oz TOPIC SCH (20:00)
[2018-07-29] MEDS: Pantoprazole Inj IVP SCH (20:43)
[2018-07-29] MEDS ORDERED: Tamsulosin 0.4mg cap ORAL SCH (21:00)
--- NOTE | 2018-07-29 22:00 | NUR ---
NURSE NOTES: BS 110. continues on insulin gtt Algorithm 1. Insulin running at 0.5 u/hr. Pt denies any discomfort at this time. Pt noted to be able to reposition himself side to side. Will continue to monitor
[2018-07-30] VITALS (23 sets, daily range): BP systolic 68–143; BP diastolic 26–71
--- NOTE | 2018-07-30 | NUR ---
NURSE NOTES: Pt continues on insulin gtt a 0.8 u/hr. BS 126. Pt denies any pain or discomfort at this time. Pt able to take meds with no problem. Will continue to monitor
--- NOTE | 2018-07-30 02:00 | NUR ---
NURSE NOTES: BS 129. continues at the same rate of 0.8 u/hr. Pt sleeping comfortable in bed. Pt turned and repositioned at this time. No signs of distress noted. Will continue to monitor.
--- NOTE | 2018-07-30 04:00 | NUR ---
NURSE NOTES: Turned and repositioned at this time. Morning bath provided. Suprapubic cath noted to be leaking. BS 136, Insulin gtt continues at 0.8u/hr,Algorithm 1. Sinus rhythm on the monitor. No signs of distress noted. Will continue to monitor.
[2018-07-30] MEDS: Sodium Citrate 30ml ORAL SCH ×3 (05:56→17:18)
--- NOTE | 2018-07-30 06:00 | NUR ---
NURSE NOTES: BS 129, continues insulin gtt 0.8 u/hr. Algorithm 1. Pt able to take medication this morning but noted to have some coughing. Will continue to monitor
[2018-07-30] MEDS: D5 1/2NS 1,000 ML IV SCH (06:05)
--- NOTE | 2018-07-30 07:02 | NUR ---
HAND-OFF: Report given to Fani RIVERA using SBAR.
[2018-07-30 07:13] LABS: EOSINOPHILS % (AUTO) 0.9 % (0.0-3.0); HEMATOCRIT 25.4 % (42.0-52.0); HEMOGLOBIN 8.4 G/DL (14.2-18.0); LYMPHOCYTES % (AUTO) 24.6 % (20.0-45.0); MEAN CORPUSCULAR VOLUME 95 FL (80-99); MONOCYTES % (AUTO) 8.6 % (1.0-10.0); NEUTROPHILS % (AUTO) 64.9 % (45.0-75.0); PLATELET COUNT 224 K/UL (150-450); RED BLOOD COUNT 2.68 M/UL (4.70-6.10); RED CELL DISTRIBUTION WIDTH 14.5 % (11.6-14.8); WHITE BLOOD COUNT 5.4 K/UL (4.8-10.8)
--- NOTE | 2018-07-30 07:17 | NUR ---
NURSE NOTES: Received pt from NICOLE John. Asleep easily arousal to verbal and tactile stimuli.Afebrile at this time and remains on insulin drip for DKA at 58.On room air and saturate at 93%, RA.Skin warm and dry.Suprapubic catheter draining well urine yellowish clear urine with sediments.Noted with some leak will follow up with nephro.Peripheral line left wrist and left hand 20 gauge and right AC peripheral line gauge 20 with no apparent sign infiltration.Running D51/2 NS at 100cc/hr.Pt able to self reposition with assist.Kept clean ,dry and comfortable.Will Continue to monitor.
[2018-07-30 08:05] LABS: GAMMA GLUTAMYL TRANSPEPTIDASE 9 U/L (5-85)
[2018-07-30 08:07] LABS: ALANINE AMINOTRANSFERASE 10 U/L (12-78); ALBUMIN/GLOBULIN RATIO 0.5 (1.0-2.7); ALKALINE PHOSPHATASE 75 U/L (46-116); ANION GAP 17 mmol/L (5-15); ASPARTATE AMINO TRANSFERASE 10 U/L (15-37); BILIRUBIN,TOTAL 0.3 MG/DL (0.2-1.0); BLOOD UREA NITROGEN 102 mg/dL (7-18); CALCIUM 8.7 MG/DL (8.5-10.1); CHLORIDE 120 MMOL/L (98-107); CREATININE 7.8 MG/DL (0.55-1.30); FERRITIN 972 NG/ML (8-388); PHOSPHORUS 5.6 MG/DL (2.5-4.9); POTASSIUM 4.5 MMOL/L (3.5-5.1); SODIUM 146 MMOL/L (136-145)
[2018-07-30] MEDS: Insulin Rate Change 1 Each MISC PRN ×2 (08:14→18:16)
[2018-07-30 08:19] LABS: CARBON DIOXIDE 9 MMOL/L (21-32)
[2018-07-30] MEDS: Nephrovite tab (Rena-Vite) ORAL SCH (08:29)
[2018-07-30] MEDS: DULoxetine 30mg cap ORAL SCH (08:29)
[2018-07-30] MEDS: Pantoprazole Inj IVP SCH ×2 (08:29→20:42)
[2018-07-30] MEDS: Heparin 5000 units/ml inj SUBQ SCH ×2 (08:31→20:43)
--- NOTE | 2018-07-30 08:45 | Pulmonolgy Critical Care Note ---
Critical Care - Asmt/Plan Assessment/Plan: ASSESSMENT DKA Sepsis Probable UTI Acute metabolic encephalopathy Acute on chronic renal failure (CKD st 4) Hyper K-resolved Metabolic acidosis Anemia of chronic kidney disease Protein calorie malnutrition R hip decub, POA MDD PLAN OF CARE ICU insulin drip continue until anion gap closed pulse ox stable on room air no chest pain troponin elevated likely due to renal failure ABG and labs with severe metabolic acidosis started on IV fluids with dextrose and bicarb as per nephrology monitor renal parameters and electrolytes ,avoid nephrotoxic, needs dialysis as per nephro empiric antibiotic blood culture preliminary negative; urine culture negative ID follows monitor H&H with goal to keep hemoglobin above 7 dietary eval wound care as per protocol psychiatrist follows; psychiatric medication regimen optimized supportive care DNR/DNI case discussed and evaluated by supervising physician Critical Care - Objective Last 24 Hour Vital Signs Date Time Temp Pulse Resp B/P (MAP) Pulse Ox O2 Delivery O2 Flow Rate FiO2 07/30/18 08:00 Room Air 07/30/18 08:00 98.7 100 19 95/55 100 Room Air 07/30/18 07:00 111 20 92/47 100 Room Air 07/30/18 06:00 111 20 117/47 100 Room Air 07/30/18 05:00 94 20 89/50 100 Room Air 07/30/18 04:00 Room Air 07/30/18 04:00 98.3 78 19 118/59 100 Room Air 07/30/18 04:00 96 07/30/18 03:00 99 19 143/71 100 Room Air 07/30/18 02:00 92 20 115/55 100 Room Air 07/30/18 01:00 107 22 114/58 100 Room Air 07/30/18 00:00 98.6 71 19 100/47 100 Room Air 07/30/18 00:00 Room Air 07/30/18 00:00 107 07/29/18 23:00 97 19 122/56 100 Room Air 07/29/18 22:00 93 17 115/69 99 Room Air 07/29/18 21:00 87 20 91/44 98 Room Air 07/29/18 20:00 Room Air 07/29/18 20:00 85 07/29/18 20:00 98.8 100 20 95/36 100 Room Air 07/29/18 19:00 95 23 110/47 100 Room Air 07/29/18 18:00 92 28 82/35 100 Room Air 07/29/18 18:00 97 21 110/43 100 Room Air 07/29/18 17:00 98 20 115/46 100 Room Air 07/29/18 17:00 99 20 115/46 100 Room Air 07/29/18 16:00 98.0 90 20 100/49 100 Room Air 07/29/18 16:00 100 20 100/49 100 Room Air 07/29/18 16:00 79 07/29/18 16:00 Room Air 07/29/18 15:00 79 20 104/36 100 Room Air 07/29/18 14:00 90 20 102/82 100 Room Air 07/29/18 13:00 90 20 88/38 100 Room Air 07/29/18 12:00 77 07/29/18 12:00 Room Air 07/29/18 12:00 98.0 77 20 83/33 100 Room Air 07/29/18 11:00 90 20 106/49 100 Room Air 07/29/18 10:00 77 20 88/46 100 Room Air 07/29/18 09:00 77 20 80/39 100 Room Air 07/29/18 09:00 74 Status: other - awakem confused Condition: critical HEENT: atraumatic, normocephalic Neck: full ROM Lungs: clear Heart: HR/BP stable Abdomen: soft, non-tender, active bowel sounds Extremities: no C/C/E Micro: Microbiology Date/Time Source Procedure Growth Status 07/29/18 05:29 Blood Blood Culture - Preliminary NO GROWTH AFTER 24 HOURS Resulted 07/29/18 05:14 Blood Blood Culture - Preliminary NO GROWTH AFTER 24 HOURS Resulted 07/29/18 00:30 Nasal Nares MRSA Culture - Final Staphylococcus Aureus - Mrsa Complete 07/28/18 21:03 Urine,Clean Catch Urine Culture - Preliminary Resulted Accucheck: 113 Critical Care - Subjective ROS Limited/Unobtainable: Yes Interval Events: afebrile, leukocytosis resolved continue to be in severe metabolic acidosis ( per ABG and labs) pulse ox stable on RA Condition: critical Fluids: D5W with 1 amp bicar at 75 cc/hr Drips: insulin gtt at 0.8 ml/hr I&O: Intake and Output 07/29/18 07/30/18 19:00 07:00 Intake Total 2323.4 ml 1168.55 ml Output Total 360 ml 940 ml Balance 1963.4 ml 228.55 ml Intake Oral 0 ml 60 ml IV Total 2323.4 ml 1108.55 ml Output Urine Total 360 ml 940 ml # Bowel Movements 3 CXR: Suspected atelectasis or scarring right lung Catherine Griffin NP Jul 30, 2018 08:45
--- NOTE | 2018-07-30 09:20 | NUR ---
NURSE NOTES: Pt seen by Catherine Griffin and Dr Chambers and made aware ABG result. Will follow up with new order
--- NOTE | 2018-07-30 09:32 | NUR ---
NURSE NOTES: Spoke with Cheryl from lab and made her aware pt does not have a line and need repeat blood draw.As stated she will send a clinical laboratory assistant
[2018-07-30] MEDS: Sodium Bicarbonate 100 ML in D5W 1000ml 1,000 ML IV SCH ×2 (10:23→22:39)
--- NOTE | 2018-07-30 11:21 | NUR ---
NURSE NOTES: Pt seen by Dr Centeno regarding the suprapubic catheter leak and as stated flush as needed and he will put a new one this week.
--- NOTE | 2018-07-30 11:39 | Nephrology Progress Note ---
Assessment/Plan Problem List: (1) Bladder outlet obstruction (2) Acute on chronic renal failure (3) Anemia in chronic kidney disease (4) BPH (benign prostatic hypertrophy) (5) DKA (diabetic ketoacidoses) (6) Encephalopathy acute Assessment ESRD , in need of dialysis , refuses- presents with high K Encephalopathy , Metabolic Acidosis , Uremic and Diabetic Sever Anemia: Mixed etiology HTn, but presents with low BP Supra Pubic Cath, h/o UTI, BPH Psych disease CAD, elevated Troponin I s/p DKAs Plan Hydrate- Transfuse Bicarbs Sugar control will do poorly in view of no dialysis plans DNR per orders Subjective ROS Limited/Unobtainable: No Constitutional: Reports: malaise, weakness Objective Objective Last 24 Hour Vital Signs Date Time Temp Pulse Resp B/P (MAP) Pulse Ox O2 Delivery O2 Flow Rate FiO2 07/30/18 08:00 Room Air 07/30/18 08:00 98.7 100 19 95/55 100 Room Air 07/30/18 07:00 111 20 92/47 100 Room Air 07/30/18 06:00 111 20 117/47 100 Room Air 07/30/18 05:00 94 20 89/50 100 Room Air 07/30/18 04:00 Room Air 07/30/18 04:00 98.3 78 19 118/59 100 Room Air 07/30/18 04:00 96 07/30/18 03:00 99 19 143/71 100 Room Air 07/30/18 02:00 92 20 115/55 100 Room Air 07/30/18 01:00 107 22 114/58 100 Room Air 07/30/18 00:00 98.6 71 19 100/47 100 Room Air 07/30/18 00:00 Room Air 07/30/18 00:00 107 07/29/18 23:00 97 19 122/56 100 Room Air 07/29/18 22:00 93 17 115/69 99 Room Air 07/29/18 21:00 87 20 91/44 98 Room Air 07/29/18 20:00 Room Air 07/29/18 20:00 85 07/29/18 20:00 98.8 100 20 95/36 100 Room Air 07/29/18 19:00 95 23 110/47 100 Room Air 07/29/18 18:00 92 28 82/35 100 Room Air 07/29/18 18:00 97 21 110/43 100 Room Air 07/29/18 17:00 98 20 115/46 100 Room Air 07/29/18 17:00 99 20 115/46 100 Room Air 07/29/18 16:00 98.0 90 20 100/49 100 Room Air 07/29/18 16:00 100 20 100/49 100 Room Air 07/29/18 16:00 79 07/29/18 16:00 Room Air 07/29/18 15:00 79 20 104/36 100 Room Air 07/29/18 14:00 90 20 102/82 100 Room Air 07/29/18 13:00 90 20 88/38 100 Room Air 07/29/18 12:00 77 07/29/18 12:00 Room Air 07/29/18 12:00 98.0 77 20 83/33 100 Room Air Intake and Output 07/29/18 07/30/18 19:00 07:00 Intake Total 2323.4 ml 1168.55 ml Output Total 360 ml 940 ml Balance 1963.4 ml 228.55 ml Intake Oral 0 ml 60 ml IV Total 2323.4 ml 1108.55 ml Output Urine Total 360 ml 940 ml # Bowel Movements 3 Laboratory Tests 07/29/18 13:00: Sodium Level 145, Potassium Level 4.8, Chloride Level 118H, Carbon Dioxide Level 8*L, Anion Gap 19H, Blood Urea Nitrogen 109H, Creatinine 7.7H, Estimat Glomerular Filtration Rate 7.1, Glucose Level 95, Calcium Level 8.4L, Magnesium Level 2.4 07/29/18 18:00: Sodium Level 145, Potassium Level 4.8, Chloride Level 119H, Carbon Dioxide Level 7*L, Anion Gap 19H, Blood Urea Nitrogen 112H, Creatinine 7.9H, Estimat Glomerular Filtration Rate 6.9, Glucose Level 138H, Calcium Level 8.3L, Total Bilirubin 0.3, Aspartate Amino Transf (AST/SGOT) 10L, Alanine Aminotransferase ( ALT/SGPT) 9L, Alkaline Phosphatase 74, Total Protein 5.3L, Albumin 2.0L, Globulin 3.3, Albumin/Globulin Ratio 0.6L 07/30/18 06:05: Sodium Level 146H, Potassium Level 4.5, Chloride Level 120H, Carbon Dioxide Level 9*L, Anion Gap 17H, Blood Urea Nitrogen 102H, Creatinine 7.8H, Estimat Glomerular Filtration Rate 7.0, Glucose Level 130H, Calcium Level 8.7, Magnesium Level 2.2, Total Bilirubin 0.3, Aspartate Amino Transf (AST/SGOT) 10L , Alanine Aminotransferase (ALT/SGPT) 10L, Alkaline Phosphatase 75, Total Protein 5.8L, Albumin 2.0L, Globulin 3.8, Albumin/Globulin Ratio 0.5L, White Blood Count 5.4, Red Blood Count 2.68L, Hemoglobin 8.4L, Hematocrit 25.4L, Mean Corpuscular Volume 95, Mean Corpuscular Hemoglobin 31.3H, Mean Corpuscular Hemoglobin Concent 33.0, Red Cell Distribution Width 14.5, Platelet Count 224, Mean Platelet Volume 6.3L, Neutrophils (%) (Auto) 64.9, Lymphocytes (%) (Auto) 24.6, Monocytes (%) (Auto) 8.6, Eosinophils (%) (Auto) 0.9, Basophils (%) (Auto ) 1.0, Uric Acid 8.8H, Phosphorus Level 5.6H, Iron Level [Pending], Unsaturated Iron Binding [Pending], Ferritin 972H, Gamma Glutamyl Transpeptidase 9, Troponin I 0.111H, C-Reactive Protein, Quantitative 3.1H, Pro-B-Type Natriuretic Peptide 6198H, Vitamin B12 Level 701, Folate 36.7, Random Amikacin Level 13.5 07/30/18 09:00: Arterial Blood pH 7.183*L, Arterial Blood Partial Pressure CO2 18.5*L, Arterial Blood Partial Pressure O2 110.0H, Arterial Blood HCO3 6.8*L, Arterial Blood Oxygen Saturation 96.9, Arterial Blood Base Excess -19.6*L, Mikael Test Positive 07/30/18 10:50: Erythrocyte Sedimentation Rate [Pending] Height (Feet): 6 Height (Inches): 0.00 Weight (Pounds): 146 General Appearance: no apparent distress, lethargic Cardiovascular: normal rate Respiratory/Chest: decreased breath sounds Abdomen: distended Luis Chambers MD Jul 30, 2018 11:39
--- NOTE | 2018-07-30 11:45 | Consultation ---
DATE OF CONSULTATION: 07/30/2018 CONSULTING PHYSICIAN: Ye Rios M.D. REFERRING PHYSICIAN: Luis Chambers M.D. REASON FOR CONSULTATION: Evaluation of suprapubic tube. HISTORY OF PRESENT ILLNESS: This is a 63-year-old male. He is known to me from previous evaluations. The patient has a history of BPH, neurogenic bladder, chronic suprapubic tube. He has a history of end-stage renal disease. He has a history of renal transplant and bilateral [place] nephrectomies. The patient was originally admitted to the hospital because of altered mental status, abnormal laboratories. He has possible DKA. He has had some leakage from the suprapubic tube. Urology evaluation was requested. He also was noted to have UTI. Most of the history was obtained from the chart. PAST MEDICAL HISTORY: Significant for above, also history of diabetes, hypertension, history of hyperparathyroidism, again BPH history, heart disease, blindness. PAST SURGICAL HISTORY: He has had bilateral nephrectomies. He has had a kidney transplant. MEDICATIONS: Current medications here in the hospital, the patient is on Cymbalta, Nephro-Enedina, Protonix, meropenem, Shilpa-Enedina, Bicitra, heparin, insulin, and . ALLERGIES: Cefepime. SOCIAL HISTORY: Resident of a intermediate. FAMILY HISTORY: Unable to obtain. REVIEW OF SYSTEMS: Unable to obtain. PHYSICAL EXAMINATION: GENERAL: Elderly male, in no acute distress. Slightly confused. VITAL SIGNS: Temperature 98.7, blood pressure is 95/55. ABDOMEN: Soft. No CVA tenderness. Suprapubic tube is in place 18-[place]. Urine is yellowish with occasional debris. LABORATORY DATA: His UA on admit showed 3+ protein, 5 to 10 rbc's, too numerous to count wbc's, many bacteria and yeast. He had urine culture from 07/28/2018, which is preliminary without the final report. His culture from 07/29/2018 did not show any growth at 24 hours. His white count is 5.4, hemoglobin 8.4, and platelets are 224, BUN is 102, creatinine is 7.8. DIAGNOSTIC IMAGING STUDIES: The patient had a chest x-ray, which was noted. He has had previous abdomen pelvic CT scan, which had showed some cysts in the transplanted kidney. IMPRESSION: 1. Urinary retention. 2. Neurogenic bladder. 3. History of chronic suprapubic tube. 4. BPH history. 5. History of end-stage renal disease. 6. Hematuria. 7. Pyuria. 8. Proteinuria. 9. Renal cysts. PLAN/DISCUSSION: I did personally irrigate the suprapubic tube at the bedside. It is in good position. I have asked the nurses to be irrigated as needed. The patient is going to have some leakage around the catheter, possibly from bladder spasms. We can consider adding anticholinergics. We will plan to change the suprapubic tube at some point during this admission. Thank you for this consultation. Ye Rios M.D. DR: JAYLIN JOB#: [id number] CC:
--- NOTE | 2018-07-30 11:51 | NUR ---
Social Work This Sw met with patient currently in the ICU, provided emotional support. This Sw also contacted POA, Paul Cota ([phone]), [place], who confirmed patient is from [facility] and planning for patient to return there when medically cleared. Patient has a POLST in chart stating DNR/DNI (POA confirmed this as well).
--- NOTE | 2018-07-30 12:13 | Infectious Diseases Prog Note ---
Assessment/Plan Assessment/Plan Assessment: Severe sepsis -likely 2ry to UTI- r/o bacteremia -u.a wbc tntc, nit neg, luek +3; ucx p -Bcx p -CXR: Suspected atelectasis or scarring right Afebrile Leukocytosis, SP DKA RIVKA, improving hx of recent sepsis 2ry to UTI and bacteremia 07/08/18 UCx - P.a. MDR and Providencia 07/08/18 BCx ESBL Proteus and K. pneumo Dm2 HLD MDD with suicidal attempts in the past w/ resultant chronic encephalopathy CAD/[place] BPH anemia asthma colonic polyps ESRD s/p renal and pancreas tx ~10 yrs ago now CKD 4 ConS bacteremia/line infection urinary retention s/p suprapubic catheter 09/2017 recurrent hematuria multiple hospital admissions recurrent UTI DNR Plan: -Start Meropenem and give one dose Amikacin pending cultuers -07/22 SP Meropenem, #14 -f/u cx -Monitor CBC/CMP, temperatures Subjective Allergies: Coded Allergies: CEFEPIME (Verified Allergy, Intermediate, Rash, 03/01/18) Tolerates Carbapenem Objective Vital Signs Last 24 Hour Vital Signs Date Time Temp Pulse Resp B/P (MAP) Pulse Ox O2 Delivery O2 Flow Rate FiO2 07/30/18 11:00 65 20 91/51 100 Room Air 07/30/18 10:00 98 20 117/53 100 Room Air 07/30/18 09:00 100 22 96/37 100 Room Air 07/30/18 08:00 Room Air 07/30/18 08:00 98.7 100 19 95/55 100 Room Air 07/30/18 07:00 111 20 92/47 100 Room Air 07/30/18 06:00 111 20 117/47 100 Room Air 07/30/18 05:00 94 20 89/50 100 Room Air 07/30/18 04:00 Room Air 07/30/18 04:00 98.3 78 19 118/59 100 Room Air 07/30/18 04:00 96 07/30/18 03:00 99 19 143/71 100 Room Air 07/30/18 02:00 92 20 115/55 100 Room Air 07/30/18 01:00 107 22 114/58 100 Room Air 07/30/18 00:00 98.6 71 19 100/47 100 Room Air 07/30/18 00:00 Room Air 07/30/18 00:00 107 07/29/18 23:00 97 19 122/56 100 Room Air 07/29/18 22:00 93 17 115/69 99 Room Air 07/29/18 21:00 87 20 91/44 98 Room Air 07/29/18 20:00 Room Air 07/29/18 20:00 85 07/29/18 20:00 98.8 100 20 95/36 100 Room Air 07/29/18 19:00 95 23 110/47 100 Room Air 07/29/18 18:00 92 28 82/35 100 Room Air 07/29/18 18:00 97 21 110/43 100 Room Air 07/29/18 17:00 98 20 115/46 100 Room Air 07/29/18 17:00 99 20 115/46 100 Room Air 07/29/18 16:00 98.0 90 20 100/49 100 Room Air 07/29/18 16:00 100 20 100/49 100 Room Air 07/29/18 16:00 79 07/29/18 16:00 Room Air 07/29/18 15:00 79 20 104/36 100 Room Air 07/29/18 14:00 90 20 102/82 100 Room Air 07/29/18 13:00 90 20 88/38 100 Room Air Height (Feet): 6 Height (Inches): 0.00 Weight (Pounds): 146 Microbiology Date/Time Source Procedure Growth Status 07/29/18 05:29 Blood Blood Culture - Preliminary NO GROWTH AFTER 24 HOURS Resulted 07/29/18 05:14 Blood Blood Culture - Preliminary NO GROWTH AFTER 24 HOURS Resulted 07/29/18 00:30 Nasal Nares MRSA Culture - Final Staphylococcus Aureus - Mrsa Complete 07/29/18 05:15 Urine,Clean Catch Urine Culture - Preliminary NO GROWTH AFTER 24 HOURS Resulted 07/28/18 21:03 Urine,Clean Catch Urine Culture - Preliminary Resulted 07/29/18 00:30 Rectum - Preliminary Resulted Laboratory Tests Test 07/29/18 13:00 07/29/18 18:00 07/30/18 06:05 07/30/18 09:00 Sodium Level 145 MMOL/L (136-145) 145 MMOL/L (136-145) 146 MMOL/L (136-145) H Potassium Level 4.8 MMOL/L (3.5-5.1) 4.8 MMOL/L (3.5-5.1) 4.5 MMOL/L (3.5-5.1) Chloride Level 118 MMOL/L (98-107) H 119 MMOL/L (98-107) H 120 MMOL/L (98-107) H Carbon Dioxide Level 8 MMOL/L (21-32) *L 7 MMOL/L (21-32) *L 9 MMOL/L (21-32) *L Anion Gap 19 mmol/L (5-15) H 19 mmol/L (5-15) H 17 mmol/L (5-15) H Blood Urea Nitrogen 109 mg/dL (7-18) H 112 mg/dL (7-18) H 102 mg/dL (7-18) H Creatinine 7.7 MG/DL (0.55-1.30) H 7.9 MG/DL (0.55-1.30) H 7.8 MG/DL (0.55-1.30) H Estimat Glomerular Filtration Rate 7.1 mL/min (>60) 6.9 mL/min (>60) 7.0 mL/min (>60) Glucose Level 95 MG/DL (74-106) 138 MG/DL (74-106) H 130 MG/DL (74-106) H Calcium Level 8.4 MG/DL (8.5-10.1) L 8.3 MG/DL (8.5-10.1) L 8.7 MG/DL (8.5-10.1) Magnesium Level 2.4 MG/DL (1.8-2.4) 2.2 MG/DL (1.8-2.4) Total Bilirubin 0.3 MG/DL (0.2-1.0) 0.3 MG/DL (0.2-1.0) Aspartate Amino Transf (AST/SGOT) 10 U/L (15-37) L 10 U/L (15-37) L Alanine Aminotransferase (ALT/SGPT) 9 U/L (12-78) L 10 U/L (12-78) L Alkaline Phosphatase 74 U/L (46-116) 75 U/L (46-116) Total Protein 5.3 G/DL (6.4-8.2) L 5.8 G/DL (6.4-8.2) L Albumin 2.0 G/DL (3.4-5.0) L 2.0 G/DL (3.4-5.0) L Globulin 3.3 g/dL 3.8 g/dL Albumin/Globulin Ratio 0.6 (1.0-2.7) L 0.5 (1.0-2.7) L White Blood Count 5.4 K/UL (4.8-10.8) Red Blood Count 2.68 M/UL (4.70-6.10) L Hemoglobin 8.4 G/DL (14.2-18.0) L Hematocrit 25.4 % (42.0-52.0) L Mean Corpuscular Volume 95 FL (80-99) Mean Corpuscular Hemoglobin 31.3 PG (27.0-31.0) H Mean Corpuscular Hemoglobin Concent 33.0 G/DL (32.0-36.0) Red Cell Distribution Width 14.5 % (11.6-14.8) Platelet Count 224 K/UL (150-450) Mean Platelet Volume 6.3 FL (6.5-10.1) L Neutrophils (%) (Auto) 64.9 % (45.0-75.0) Lymphocytes (%) (Auto) 24.6 % (20.0-45.0) Monocytes (%) (Auto) 8.6 % (1.0-10.0) Eosinophils (%) (Auto) 0.9 % (0.0-3.0) Basophils (%) (Auto) 1.0 % (0.0-2.0) Uric Acid 8.8 MG/DL (2.6-7.2) H Phosphorus Level 5.6 MG/DL (2.5-4.9) H Iron Level Pending Unsaturated Iron Binding Pending Ferritin 972 NG/ML (8-388) H Gamma Glutamyl Transpeptidase 9 U/L (5-85) Troponin I 0.111 ng/mL (0.000-0.056) C-Reactive Protein, Quantitative 3.1 mg/dL (0.00-0.90) H Pro-B-Type Natriuretic Peptide 6198 pg/mL (0-125) H Vitamin B12 Level 701 PG/ML (193-986) Folate 36.7 NG/ML (8.6-58.9) Random Amikacin Level 13.5 ug/mL Arterial Blood pH 7.183 (7.350-7.450) Arterial Blood Partial Pressure CO2 18.5 mmHg (35.0-45.0) *L Arterial Blood Partial Pressure O2 110.0 mmHg (75.0-100.0) H Arterial Blood HCO3 6.8 mmol/L (22.0-26.0) *L Arterial Blood Oxygen Saturation 96.9 % (95-100) Arterial Blood Base Excess -19.6 (-2-2) *L Mikael Test Positive Test 07/30/18 10:50 Erythrocyte Sedimentation Rate Pending Current Medications Medications (Trade) Dose Ordered Sig/Dunia Route PRN Reason Start Time Stop Time Status Last Admin Dose Admin Dextrose (Dextrose 50%) 25 ml Q30M PRN IV HYPOGLYCEMIA 07/29/18 04:45 08/28/18 04:44 Dextrose (Dextrose 50%) 50 ml Q30M PRN IV HYPOGLYCEMIA 07/29/18 04:45 08/28/18 04:44 07/29/18 09:43 Duloxetine HCl (Cymbalta) 30 mg DAILY ORAL 07/30/18 09:00 08/29/18 08:59 07/30/18 08:29 Heparin Sodium (Porcine) (Heparin 5000 units/ml) 5,000 units EVERY 12 HOURS SUBQ 07/29/18 09:00 08/28/18 08:59 07/30/18 08:31 Heparin Sodium/ Sodium Chloride (Heparin 2000 units/Ns 1000ml premix) 2,000 unit ONCE PRN INJ FOR PICC PLACEMENT 07/29/18 08:00 07/30/18 23:59 Insulin Human Regular (NovoLIN R) 5 units PRN PRN IV BS 200-299 07/29/18 04:45 08/28/18 04:44 Insulin Human Regular (NovoLIN R) 10 units PRN PRN IV BS=>300 07/29/18 04:45 08/28/18 04:44 Insulin Human Regular 100 units/ Sodium Chloride 101 ml @ 0 mls/hr Q24H IV 07/29/18 07:45 08/28/18 07:44 07/29/18 19:07 Lidocaine HCl (Xylocaine 1% 30ml) 30 ml ONCE PRN INJ FOR PICC PLACEMENT 07/29/18 04:45 07/30/18 23:59 Meropenem 500 mg/ Sodium Chloride 55 ml @ 110 mls/hr Q24H IVPB 07/29/18 16:00 08/03/18 15:59 07/29/18 15:42 Miscellaneous Medication (Insulin Rate Change) 1 ea PRN PRN MISC Hyperglycemia 07/29/18 04:45 08/28/18 04:44 07/30/18 08:14 Pantoprazole (Protonix) 40 mg Q12HR IVP 07/29/18 21:00 08/28/18 08:59 07/30/18 08:29 Sevelamer Carbonate (Renvela) 800 mg THREE TIMES A DAY ORAL 07/29/18 13:00 08/28/18 12:59 07/30/18 08:29 Sodium Bicarbonate 100 ml/Dextrose 1,100 ml @ 75 mls/hr [id number] IV 07/30/18 10:00 08/29/18 09:59 07/30/18 10:23 Sodium Citrate (Bicitra) 30 ml EVERY 6 HOURS ORAL 07/29/18 12:00 08/28/18 11:59 07/30/18 05:56 Vitamin B Complex/ Vit C/Folic Acid (Nephrovite) 1 tab DAILY ORAL 07/30/18 09:00 08/29/18 08:59 07/30/18 08:29 Rich Wick MD Jul 30, 2018 12:13
--- NOTE | 2018-07-30 13:20 | Infectious Diseases Prog Note ---
Assessment/Plan Assessment/Plan Assessment: Severe sepsis -likely 2ry to UTI- r/o bacteremia -u.a wbc tntc, nit neg, luek +3; ucx p -Bcx p -CXR: Suspected atelectasis or scarring right Afebrile Leukocytosis, SP DKA RIVKA, improving hx of recent sepsis 2ry to UTI and bacteremia 07/08/18 UCx - P.a. MDR and Providencia 07/08/18 BCx ESBL Proteus and K. pneumo Dm2 HLD MDD with suicidal attempts in the past w/ resultant chronic encephalopathy CAD/[place] BPH anemia asthma colonic polyps ESRD s/p renal and pancreas tx ~10 yrs ago now CKD 4 ConS bacteremia/line infection urinary retention s/p suprapubic catheter 09/2017 recurrent hematuria multiple hospital admissions recurrent UTI DNR Plan: - Cont Meropenem d# 2 pending cultuers 07/29 SP one dose Amikacin -07/22 SP Meropenem, #14 - f/u cx -Monitor CBC/CMP, temperatures Subjective Allergies: Coded Allergies: CEFEPIME (Verified Allergy, Intermediate, Rash, 03/01/18) Tolerates Carbapenem Subjective comfortable sleeping Objective Vital Signs Last 24 Hour Vital Signs Date Time Temp Pulse Resp B/P (MAP) Pulse Ox O2 Delivery O2 Flow Rate FiO2 07/30/18 11:00 65 20 91/51 100 Room Air 07/30/18 10:00 98 20 117/53 100 Room Air 07/30/18 09:00 100 22 96/37 100 Room Air 07/30/18 08:00 Room Air 07/30/18 08:00 98.7 100 19 95/55 100 Room Air 07/30/18 07:00 111 20 92/47 100 Room Air 07/30/18 06:00 111 20 117/47 100 Room Air 07/30/18 05:00 94 20 89/50 100 Room Air 07/30/18 04:00 Room Air 07/30/18 04:00 98.3 78 19 118/59 100 Room Air 07/30/18 04:00 96 07/30/18 03:00 99 19 143/71 100 Room Air 07/30/18 02:00 92 20 115/55 100 Room Air 07/30/18 01:00 107 22 114/58 100 Room Air 07/30/18 00:00 98.6 71 19 100/47 100 Room Air 07/30/18 00:00 Room Air 07/30/18 00:00 107 07/29/18 23:00 97 19 122/56 100 Room Air 07/29/18 22:00 93 17 115/69 99 Room Air 07/29/18 21:00 87 20 91/44 98 Room Air 07/29/18 20:00 Room Air 07/29/18 20:00 85 07/29/18 20:00 98.8 100 20 95/36 100 Room Air 07/29/18 19:00 95 23 110/47 100 Room Air 07/29/18 18:00 92 28 82/35 100 Room Air 07/29/18 18:00 97 21 110/43 100 Room Air 07/29/18 17:00 98 20 115/46 100 Room Air 07/29/18 17:00 99 20 115/46 100 Room Air 07/29/18 16:00 98.0 90 20 100/49 100 Room Air 07/29/18 16:00 100 20 100/49 100 Room Air 07/29/18 16:00 79 07/29/18 16:00 Room Air 07/29/18 15:00 79 20 104/36 100 Room Air 07/29/18 14:00 90 20 102/82 100 Room Air Height (Feet): 6 Height (Inches): 0.00 Weight (Pounds): 146 HEENT: anicteric Respiratory/Chest: normal breath sounds Cardiovascular: regular rhythm Abdomen: no organomegaly Microbiology Date/Time Source Procedure Growth Status 07/29/18 05:29 Blood Blood Culture - Preliminary NO GROWTH AFTER 24 HOURS Resulted 07/29/18 05:14 Blood Blood Culture - Preliminary NO GROWTH AFTER 24 HOURS Resulted 07/29/18 00:30 Nasal Nares MRSA Culture - Final Staphylococcus Aureus - Mrsa Complete 07/29/18 05:15 Urine,Clean Catch Urine Culture - Preliminary NO GROWTH AFTER 24 HOURS Resulted 07/28/18 21:03 Urine,Clean Catch Urine Culture - Preliminary Resulted 07/29/18 00:30 Rectum - Preliminary Resulted Laboratory Tests Test 07/29/18 18:00 07/30/18 06:05 07/30/18 09:00 07/30/18 10:50 Sodium Level 145 MMOL/L (136-145) 146 MMOL/L (136-145) H Potassium Level 4.8 MMOL/L (3.5-5.1) 4.5 MMOL/L (3.5-5.1) Chloride Level 119 MMOL/L (98-107) H 120 MMOL/L (98-107) H Carbon Dioxide Level 7 MMOL/L (21-32) *L 9 MMOL/L (21-32) *L Anion Gap 19 mmol/L (5-15) H 17 mmol/L (5-15) H Blood Urea Nitrogen 112 mg/dL (7-18) H 102 mg/dL (7-18) H Creatinine 7.9 MG/DL (0.55-1.30) H 7.8 MG/DL (0.55-1.30) H Estimat Glomerular Filtration Rate 6.9 mL/min (>60) 7.0 mL/min (>60) Glucose Level 138 MG/DL (74-106) H 130 MG/DL (74-106) H Calcium Level 8.3 MG/DL (8.5-10.1) L 8.7 MG/DL (8.5-10.1) Total Bilirubin 0.3 MG/DL (0.2-1.0) 0.3 MG/DL (0.2-1.0) Aspartate Amino Transf (AST/SGOT) 10 U/L (15-37) L 10 U/L (15-37) L Alanine Aminotransferase (ALT/SGPT) 9 U/L (12-78) L 10 U/L (12-78) L Alkaline Phosphatase 74 U/L (46-116) 75 U/L (46-116) Total Protein 5.3 G/DL (6.4-8.2) L 5.8 G/DL (6.4-8.2) L Albumin 2.0 G/DL (3.4-5.0) L 2.0 G/DL (3.4-5.0) L Globulin 3.3 g/dL 3.8 g/dL Albumin/Globulin Ratio 0.6 (1.0-2.7) L 0.5 (1.0-2.7) L White Blood Count 5.4 K/UL (4.8-10.8) Red Blood Count 2.68 M/UL (4.70-6.10) L Hemoglobin 8.4 G/DL (14.2-18.0) L Hematocrit 25.4 % (42.0-52.0) L Mean Corpuscular Volume 95 FL (80-99) Mean Corpuscular Hemoglobin 31.3 PG (27.0-31.0) H Mean Corpuscular Hemoglobin Concent 33.0 G/DL (32.0-36.0) Red Cell Distribution Width 14.5 % (11.6-14.8) Platelet Count 224 K/UL (150-450) Mean Platelet Volume 6.3 FL (6.5-10.1) L Neutrophils (%) (Auto) 64.9 % (45.0-75.0) Lymphocytes (%) (Auto) 24.6 % (20.0-45.0) Monocytes (%) (Auto) 8.6 % (1.0-10.0) Eosinophils (%) (Auto) 0.9 % (0.0-3.0) Basophils (%) (Auto) 1.0 % (0.0-2.0) Uric Acid 8.8 MG/DL (2.6-7.2) H Phosphorus Level 5.6 MG/DL (2.5-4.9) H Magnesium Level 2.2 MG/DL (1.8-2.4) Iron Level Pending Unsaturated Iron Binding Pending Ferritin 972 NG/ML (8-388) H Gamma Glutamyl Transpeptidase 9 U/L (5-85) Troponin I 0.111 ng/mL (0.000-0.056) C-Reactive Protein, Quantitative 3.1 mg/dL (0.00-0.90) H Pro-B-Type Natriuretic Peptide 6198 pg/mL (0-125) H Vitamin B12 Level 701 PG/ML (193-986) Folate 36.7 NG/ML (8.6-58.9) Random Amikacin Level 13.5 ug/mL Arterial Blood pH 7.183 (7.350-7.450) Arterial Blood Partial Pressure CO2 18.5 mmHg (35.0-45.0) *L Arterial Blood Partial Pressure O2 110.0 mmHg (75.0-100.0) H Arterial Blood HCO3 6.8 mmol/L (22.0-26.0) *L Arterial Blood Oxygen Saturation 96.9 % (95-100) Arterial Blood Base Excess -19.6 (-2-2) *L Mikael Test Positive Erythrocyte Sedimentation Rate 52 MM/HR (0-20) H Current Medications Medications (Trade) Dose Ordered Sig/Dunia Route PRN Reason Start Time Stop Time Status Last Admin Dose Admin Dextrose (Dextrose 50%) 25 ml Q30M PRN IV HYPOGLYCEMIA 07/29/18 04:45 08/28/18 04:44 Dextrose (Dextrose 50%) 50 ml Q30M PRN IV HYPOGLYCEMIA 07/29/18 04:45 08/28/18 04:44 07/29/18 09:43 Duloxetine HCl (Cymbalta) 30 mg DAILY ORAL 07/30/18 09:00 08/29/18 08:59 07/30/18 08:29 Heparin Sodium (Porcine) (Heparin 5000 units/ml) 5,000 units EVERY 12 HOURS SUBQ 07/29/18 09:00 08/28/18 08:59 07/30/18 08:31 Heparin Sodium/ Sodium Chloride (Heparin 2000 units/Ns 1000ml premix) 2,000 unit ONCE PRN INJ FOR PICC PLACEMENT 07/29/18 08:00 07/30/18 23:59 Insulin Human Regular (NovoLIN R) 5 units PRN PRN IV BS 200-299 07/29/18 04:45 08/28/18 04:44 Insulin Human Regular (NovoLIN R) 10 units PRN PRN IV BS=>300 07/29/18 04:45 08/28/18 04:44 Insulin Human Regular 100 units/ Sodium Chloride 101 ml @ 0 mls/hr Q24H IV 07/29/18 07:45 08/28/18 07:44 07/29/18 19:07 Lidocaine HCl (Xylocaine 1% 30ml) 30 ml ONCE PRN INJ FOR PICC PLACEMENT 07/29/18 04:45 07/30/18 23:59 Meropenem 500 mg/ Sodium Chloride 55 ml @ 110 mls/hr Q24H IVPB 07/29/18 16:00 08/03/18 15:59 07/29/18 15:42 Miscellaneous Medication (Insulin Rate Change) 1 ea PRN PRN MISC Hyperglycemia 07/29/18 04:45 08/28/18 04:44 07/30/18 08:14 Pantoprazole (Protonix) 40 mg Q12HR IVP 07/29/18 21:00 08/28/18 08:59 07/30/18 08:29 Sevelamer Carbonate (Renvela) 800 mg THREE TIMES A DAY ORAL 07/29/18 13:00 08/28/18 12:59 07/30/18 12:21 Sodium Bicarbonate 100 ml/Dextrose 1,100 ml @ 75 mls/hr [id number] IV 07/30/18 10:00 08/29/18 09:59 07/30/18 10:23 Sodium Citrate (Bicitra) 30 ml EVERY 6 HOURS ORAL 07/29/18 12:00 08/28/18 11:59 07/30/18 12:21 Vitamin B Complex/ Vit C/Folic Acid (Nephrovite) 1 tab DAILY ORAL 07/30/18 09:00 08/29/18 08:59 07/30/18 08:29 Rich Wick MD Jul 30, 2018 13:20
[2018-07-30 13:57] LABS: % IRON SATURATION 120 % (15-50); IRON 98 ug/dL (50-175); TOTAL IRON BINDING CAPACITY 82 ug/dL (250-450)
--- NOTE | 2018-07-30 14:00 | NUR ---
NURSE NOTES: Catherine Griffin made aware of SBP in the 60s' with one time order NS bolus, noted and carried out. Addendum: 07/30/18 at 1429 by Delmy Nino RN Made aware Troponin result.
[2018-07-30] MEDS: Meropenem 500 MG in NS 55 ML IVPB SCH (16:09)
--- NOTE | 2018-07-30 16:38 | Internal Med Progress Note ---
Subjective Date of Service: Jul 30, 2018 Physician Name Jose Glasgow Attending Physician Christopher Rosado MD Current Medications Medications (Trade) Dose Ordered Sig/Dunia Route PRN Reason Start Time Stop Time Status Last Admin Dose Admin Dextrose (Dextrose 50%) 25 ml Q30M PRN IV HYPOGLYCEMIA 07/29/18 04:45 08/28/18 04:44 Dextrose (Dextrose 50%) 50 ml Q30M PRN IV HYPOGLYCEMIA 07/29/18 04:45 08/28/18 04:44 07/29/18 09:43 Duloxetine HCl (Cymbalta) 30 mg DAILY ORAL 07/30/18 09:00 08/29/18 08:59 07/30/18 08:29 Heparin Sodium (Porcine) (Heparin 5000 units/ml) 5,000 units EVERY 12 HOURS SUBQ 07/29/18 09:00 08/28/18 08:59 07/30/18 08:31 Heparin Sodium/ Sodium Chloride (Heparin 2000 units/Ns 1000ml premix) 2,000 unit ONCE PRN INJ FOR PICC PLACEMENT 07/29/18 08:00 07/30/18 23:59 Insulin Human Regular (NovoLIN R) 5 units PRN PRN IV BS 200-299 07/29/18 04:45 08/28/18 04:44 Insulin Human Regular (NovoLIN R) 10 units PRN PRN IV BS=>300 07/29/18 04:45 08/28/18 04:44 Insulin Human Regular 100 units/ Sodium Chloride 101 ml @ 0 mls/hr Q24H IV 07/29/18 07:45 08/28/18 07:44 07/29/18 19:07 Lidocaine HCl (Xylocaine 1% 30ml) 30 ml ONCE PRN INJ FOR PICC PLACEMENT 07/29/18 04:45 07/30/18 23:59 Meropenem 500 mg/ Sodium Chloride 55 ml @ 110 mls/hr Q24H IVPB 07/29/18 16:00 08/03/18 15:59 07/30/18 16:09 Miscellaneous Medication (Insulin Rate Change) 1 ea PRN PRN MISC Hyperglycemia 07/29/18 04:45 08/28/18 04:44 07/30/18 08:14 Pantoprazole (Protonix) 40 mg Q12HR IVP 07/29/18 21:00 08/28/18 08:59 07/30/18 08:29 Sevelamer Carbonate (Renvela) 800 mg THREE TIMES A DAY ORAL 07/29/18 13:00 08/28/18 12:59 07/30/18 12:21 Sodium Bicarbonate 100 ml/Dextrose 1,100 ml @ 75 mls/hr [id number] IV 07/30/18 10:00 08/29/18 09:59 07/30/18 10:23 Sodium Citrate (Bicitra) 30 ml EVERY 6 HOURS ORAL 07/29/18 12:00 08/28/18 11:59 07/30/18 12:21 Vitamin B Complex/ Vit C/Folic Acid (Nephrovite) 1 tab DAILY ORAL 07/30/18 09:00 08/29/18 08:59 07/30/18 08:29 Allergies: Coded Allergies: CEFEPIME (Verified Allergy, Intermediate, Rash, 03/01/18) Tolerates Carbapenem ROS Limited/Unobtainable: Yes Subjective 63 YO M with history of diabetes I admitted with hyperglycemia and DKA. Cover for Int Med-Dr Rosado. ICU Objective Last Vital Signs Date Time Temp Pulse Resp B/P (MAP) Pulse Ox O2 Delivery O2 Flow Rate FiO2 07/30/18 16:00 Room Air 07/30/18 16:00 98.0 89 19 105/42 100 Laboratory Tests Test 07/29/18 18:00 07/30/18 06:05 07/30/18 09:00 07/30/18 10:50 Sodium Level 145 MMOL/L (136-145) 146 MMOL/L (136-145) H Potassium Level 4.8 MMOL/L (3.5-5.1) 4.5 MMOL/L (3.5-5.1) Chloride Level 119 MMOL/L (98-107) H 120 MMOL/L (98-107) H Carbon Dioxide Level 7 MMOL/L (21-32) *L 9 MMOL/L (21-32) *L Anion Gap 19 mmol/L (5-15) H 17 mmol/L (5-15) H Blood Urea Nitrogen 112 mg/dL (7-18) H 102 mg/dL (7-18) H Creatinine 7.9 MG/DL (0.55-1.30) H 7.8 MG/DL (0.55-1.30) H Estimat Glomerular Filtration Rate 6.9 mL/min (>60) 7.0 mL/min (>60) Glucose Level 138 MG/DL (74-106) H 130 MG/DL (74-106) H Calcium Level 8.3 MG/DL (8.5-10.1) L 8.7 MG/DL (8.5-10.1) Total Bilirubin 0.3 MG/DL (0.2-1.0) 0.3 MG/DL (0.2-1.0) Aspartate Amino Transf (AST/SGOT) 10 U/L (15-37) L 10 U/L (15-37) L Alanine Aminotransferase (ALT/SGPT) 9 U/L (12-78) L 10 U/L (12-78) L Alkaline Phosphatase 74 U/L (46-116) 75 U/L (46-116) Total Protein 5.3 G/DL (6.4-8.2) L 5.8 G/DL (6.4-8.2) L Albumin 2.0 G/DL (3.4-5.0) L 2.0 G/DL (3.4-5.0) L Globulin 3.3 g/dL 3.8 g/dL Albumin/Globulin Ratio 0.6 (1.0-2.7) L 0.5 (1.0-2.7) L White Blood Count 5.4 K/UL (4.8-10.8) Red Blood Count 2.68 M/UL (4.70-6.10) L Hemoglobin 8.4 G/DL (14.2-18.0) L Hematocrit 25.4 % (42.0-52.0) L Mean Corpuscular Volume 95 FL (80-99) Mean Corpuscular Hemoglobin 31.3 PG (27.0-31.0) H Mean Corpuscular Hemoglobin Concent 33.0 G/DL (32.0-36.0) Red Cell Distribution Width 14.5 % (11.6-14.8) Platelet Count 224 K/UL (150-450) Mean Platelet Volume 6.3 FL (6.5-10.1) L Neutrophils (%) (Auto) 64.9 % (45.0-75.0) Lymphocytes (%) (Auto) 24.6 % (20.0-45.0) Monocytes (%) (Auto) 8.6 % (1.0-10.0) Eosinophils (%) (Auto) 0.9 % (0.0-3.0) Basophils (%) (Auto) 1.0 % (0.0-2.0) Uric Acid 8.8 MG/DL (2.6-7.2) H Phosphorus Level 5.6 MG/DL (2.5-4.9) H Magnesium Level 2.2 MG/DL (1.8-2.4) Iron Level 98 ug/dL (50-175) Total Iron Binding Capacity 82 ug/dL (250-450) L Percent Iron Saturation 120 % (15-50) H Unsaturated Iron Binding -16 ug/dL (112-346) L Ferritin 972 NG/ML (8-388) H Gamma Glutamyl Transpeptidase 9 U/L (5-85) Troponin I 0.111 ng/mL (0.000-0.056) C-Reactive Protein, Quantitative 3.1 mg/dL (0.00-0.90) H Pro-B-Type Natriuretic Peptide 6198 pg/mL (0-125) H Vitamin B12 Level 701 PG/ML (193-986) Folate 36.7 NG/ML (8.6-58.9) Random Amikacin Level 13.5 ug/mL Arterial Blood pH 7.183 (7.350-7.450) Arterial Blood Partial Pressure CO2 18.5 mmHg (35.0-45.0) *L Arterial Blood Partial Pressure O2 110.0 mmHg (75.0-100.0) H Arterial Blood HCO3 6.8 mmol/L (22.0-26.0) *L Arterial Blood Oxygen Saturation 96.9 % (95-100) Arterial Blood Base Excess -19.6 (-2-2) *L Mikael Test Positive Erythrocyte Sedimentation Rate 52 MM/HR (0-20) H Microbiology Date/Time Source Procedure Growth Status 07/29/18 05:29 Blood Blood Culture - Preliminary NO GROWTH AFTER 24 HOURS Resulted 07/29/18 05:14 Blood Blood Culture - Preliminary NO GROWTH AFTER 24 HOURS Resulted 07/29/18 00:30 Nasal Nares MRSA Culture - Final Staphylococcus Aureus - Mrsa Complete 07/29/18 05:15 Urine,Clean Catch Urine Culture - Preliminary NO GROWTH AFTER 24 HOURS Resulted 07/28/18 21:03 Urine,Clean Catch Urine Culture - Preliminary Resulted 07/29/18 00:30 Rectum - Preliminary Resulted Intake and Output 07/29/18 07/30/18 18:59 06:59 Intake Total 2323.4 ml 1067.75 ml Output Total 415 ml 690 ml Balance 1908.4 ml 377.75 ml Intake Oral 0 ml 60 ml IV Total 2323.4 ml 1007.75 ml Output Urine Total 415 ml 690 ml # Bowel Movements 3 Objective GENERAL: The patient is awake and responsive but confused, in no acute distress. HEAD AND NECK: Pupils are equal and reactive to light. Extraocular movements are intact in the right eye. Left eye blindness, Neck was supple. No JVD. LUNGS: fair air entry. No wheezing or rales. HEART: S1 and S2. Distant heart sounds. No Murmur or gallops. ABDOMEN: Soft, nontender, and nontender. Suprapubic catheter was noted. EXTREMITIES: No cyanosis or clubbing. Bilateral lower extremity trace LE's edema. NEUROLOGIC: Cranial nerves II through XII grossly intact. Motor is 5/5 in all extremities. Gait was not assessed due to the patient's status. Assessment/Plan Assessment/Plan ASSESSMENT: 1. DKA. 2. Hypertension. 3. Dyslipidemia. 4. Diabetes type 1 with prior history of diabetic ketoacidosis. 5. Diabetic retinopathy of the left eye blindness. 6. End-stage renal disease secondary to diabetic nephrosclerosis. 7. Coronary artery disease with prior history of myocardial infarction. 8. 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 9. 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 10. Secondary hyperparathyroidism with vitamin D deficiency. 11. Anemia of chronic kidney disease. 12. Metabolic acidosis. 13. Depression with prior suicide attempt. 14. Acute encephalopathy due to toxic metabolic encephalopathy due to DKA. PLAN: 1. ICU status 2. Code status is DNR/DNI as per POLST in the chart. 3. Resume half-way medications. 4. Follow up with Labs and culture. 5. Broad spectrum antibiotic with Meropenem. 6. DVT prophylaxis, heparin subcutaneous. 7. We will follow up with Dr. Delgado with critical care , Dr. Chambers from Nephrology and Dr. Rich Wick from Infectious Disease. 8. We will follow up with the cultures and laboratory in the morning. 9. DKA protocol. Jose Glasgow MD Jul 30, 2018 16:38
--- NOTE | 2018-07-30 16:38 | NUR ---
NURSE NOTES: Patient asleep, SBP 136 at this time.Turned and repositioned.Kept clean dry and comfortable. Will continue to monitor.
--- NOTE | 2018-07-30 18:10 | NUR ---
NURSE NOTES: ADls done, pt kept clean and dry. Relayed to FISH DRIER Elias pt BS level during the shift and agree to follow up with protocol accu-check q4hrs. Order noted and carried out.Pt remains on drip algorithm 1.
--- NOTE | 2018-07-30 19:47 | NUR ---
HAND-OFF: Report given to NICOLE Vaughn.
--- NOTE | 2018-07-30 19:48 | NUR ---
NURSE NOTES: Endorsement received from NICOLE Brock. Patient arousable by name, answers questions readily but with periods of confusion. No shortness of breath, on room air. With IV g 20 at right AC, g 20 upper arm, left hand g20. Right upper arm IV with leaking, removed. Ongoing Insulin drip 0.8units/hr algorithm 1. With order for Q4 blood sugar monitoring and to keep at algorithm 1. D5W with NaHco3 at 75ml/hr. Suprapubic catheter F18 present, draining to urimeter. Urine noted with sediments. Head of bed elevated. Bed locked and in low position. Bed alarm on.
[2018-07-30] MEDS ORDERED: D5 1/2NS 1000ml IV ONE (19:51)
--- NOTE | 2018-07-30 20:00 | NUR ---
NURSE NOTES: Blood sugar checked: 136mg/dl. Still 0.8units/hr as per algorithm1.
--- NOTE | 2018-07-30 21:17 | General Progress Note ---
Assessment/Plan Problem List: (1) encephalopathy due to metabolic do (2) Major depressive disorder ICD Codes: F32.9 - Major depressive disorder, single episode, unspecified SNOMED: 260168824 Status: unchanged Assessment/Plan cont Cymbalta 30mg qam seroquel 25mg q6hr prn agitation provided ro/st Subjective Allergies: Coded Allergies: CEFEPIME (Verified Allergy, Intermediate, Rash, 03/01/18) Tolerates Carbapenem Subjective the pt is the same waxing and waning of consciousness Objective Last 24 Hour Vital Signs Date Time Temp Pulse Resp B/P (MAP) Pulse Ox O2 Delivery O2 Flow Rate FiO2 07/30/18 19:00 78 15 143/71 100 Room Air 07/30/18 18:00 74 18 109/49 100 Room Air 07/30/18 17:00 77 18 100/48 100 Room Air 07/30/18 16:00 Room Air 07/30/18 16:00 85 07/30/18 16:00 98.0 89 19 105/42 100 Room Air 07/30/18 14:00 89 19 105/47 100 Room Air 07/30/18 13:00 84 19 69/26 100 Room Air 07/30/18 12:00 88 07/30/18 12:00 Room Air 07/30/18 12:00 98.7 84 19 68/34 100 Room Air 07/30/18 11:00 65 20 91/51 100 Room Air 07/30/18 10:00 98 20 117/53 100 Room Air 07/30/18 09:00 100 22 96/37 100 Room Air 07/30/18 08:00 Room Air 07/30/18 08:00 98.7 100 19 95/55 100 Room Air 07/30/18 08:00 84 07/30/18 07:00 111 20 92/47 100 Room Air 07/30/18 06:00 111 20 117/47 100 Room Air 07/30/18 05:00 94 20 89/50 100 Room Air 07/30/18 04:00 Room Air 07/30/18 04:00 98.3 78 19 118/59 100 Room Air 07/30/18 04:00 96 07/30/18 03:00 99 19 143/71 100 Room Air 07/30/18 02:00 92 20 115/55 100 Room Air 07/30/18 01:00 107 22 114/58 100 Room Air 07/30/18 00:00 98.6 71 19 100/47 100 Room Air 07/30/18 00:00 Room Air 07/30/18 00:00 107 07/29/18 23:00 97 19 122/56 100 Room Air 07/29/18 22:00 93 17 115/69 99 Room Air Intake and Output 07/29/18 07/30/18 19:00 07:00 Intake Total 2323.4 ml 1168.55 ml Output Total 360 ml 940 ml Balance 1963.4 ml 228.55 ml Intake Oral 0 ml 60 ml IV Total 2323.4 ml 1108.55 ml Output Urine Total 360 ml 940 ml # Bowel Movements 3 Laboratory Tests 07/30/18 06:05: White Blood Count 5.4, Red Blood Count 2.68L, Hemoglobin 8.4L, Hematocrit 25.4L , Mean Corpuscular Volume 95, Mean Corpuscular Hemoglobin 31.3H, Mean Corpuscular Hemoglobin Concent 33.0, Red Cell Distribution Width 14.5, Platelet Count 224, Mean Platelet Volume 6.3L, Neutrophils (%) (Auto) 64.9, Lymphocytes ( %) (Auto) 24.6, Monocytes (%) (Auto) 8.6, Eosinophils (%) (Auto) 0.9, Basophils (%) (Auto) 1.0, Sodium Level 146H, Potassium Level 4.5, Chloride Level 120H, Carbon Dioxide Level 9*L, Anion Gap 17H, Blood Urea Nitrogen 102H, Creatinine 7.8H, Estimat Glomerular Filtration Rate 7.0, Glucose Level 130H, Uric Acid 8.8H , Calcium Level 8.7, Phosphorus Level 5.6H, Magnesium Level 2.2, Iron Level 98, Total Iron Binding Capacity 82L, Percent Iron Saturation 120H, Unsaturated Iron Binding -16L, Ferritin 972H, Total Bilirubin 0.3, Gamma Glutamyl Transpeptidase 9, Aspartate Amino Transf (AST/SGOT) 10L, Alanine Aminotransferase (ALT/SGPT) 10L, Alkaline Phosphatase 75, Troponin I 0.111H, C-Reactive Protein, Quantitative 3.1H, Pro-B-Type Natriuretic Peptide 6198H, Total Protein 5.8L, Albumin 2.0L, Globulin 3.8, Albumin/Globulin Ratio 0.5L, Vitamin B12 Level 701, Folate 36.7, Random Amikacin Level 13.5 07/30/18 09:00: Arterial Blood pH 7.183*L, Arterial Blood Partial Pressure CO2 18.5*L, Arterial Blood Partial Pressure O2 110.0H, Arterial Blood HCO3 6.8*L, Arterial Blood Oxygen Saturation 96.9, Arterial Blood Base Excess -19.6*L, Mikael Test Positive 07/30/18 10:50: Erythrocyte Sedimentation Rate 52H Height (Feet): 6 Height (Inches): 0.00 Weight (Pounds): 146 General Appearance: confused, agitated Fatmata Lu MD Jul 30, 2018 21:17
--- NOTE | 2018-07-30 22:00 | NUR ---
NURSE NOTES: Patient asleep at this time. No signs of pain or discomfort.
[2018-07-31] VITALS (20 sets, daily range): BP systolic 113–167; BP diastolic 46–77
--- NOTE | 2018-07-31 | NUR ---
HAND-OFF: Report given to NICOLE Vick for continuity of care.
--- NOTE | 2018-07-31 00:05 | NUR ---
NURSE NOTES: Report received from NICOLE Vaughn. Pt A/Ox3, confused and forgetful at times. monitoring engineer shows SR. Pt currently on RA. O2 saturation @ 97%. Shows no signs of acute respiratory or cardiac distress. Pt currently on a renal diet. A SPC [address] is in place and draining well. Slight redness noted around buttocks. Pt has a RAC20g and a LH20g with D5W w/HcO3 running at 75 ml/hr and insulin drip currently running at 0.8 units/hr under algorhythm 1. Bed in lowest position, call light within reach, bed alarms placed. Will continue to monitor and with patients plan of care.
--- NOTE | 2018-07-31 00:15 | NUR ---
NURSE NOTES: Pt currently resting comfortably. Accucheck taken with result of 152. Algorhythm 1 followed and patients insulin drip increased to 1 unit/hr. Will continue to monitor.
[2018-07-31] MEDS: Sodium Citrate 30ml ORAL SCH ×4 (00:30→18:00)
--- NOTE | 2018-07-31 02:00 | NUR ---
NURSE NOTES: Pt cleaned and repositioned. 1 BM made. Shows no signs of acute distress. VSS. Will continue to monitor.
--- NOTE | 2018-07-31 04:00 | NUR ---
NURSE NOTES: Blood glucose checked: 164. Per protocol, insulin increased to 1.2 units/hr under algorhythm 1. Pt repositioned, all needs met, will continue to monitor.
[2018-07-31 06:00] LABS: ALANINE AMINOTRANSFERASE 14 U/L (12-78); ALBUMIN/GLOBULIN RATIO 0.6 (1.0-2.7); ALKALINE PHOSPHATASE 64 U/L (46-116); ANION GAP 16 mmol/L (5-15); ASPARTATE AMINO TRANSFERASE 9 U/L (15-37); BILIRUBIN,TOTAL 0.4 MG/DL (0.2-1.0); BLOOD UREA NITROGEN 87 mg/dL (7-18); CALCIUM 8.2 MG/DL (8.5-10.1); CARBON DIOXIDE 14 MMOL/L (21-32); CHLORIDE 119 MMOL/L (98-107); CREATININE 7.1 MG/DL (0.55-1.30); POTASSIUM 4.1 MMOL/L (3.5-5.1); SODIUM 149 MMOL/L (136-145)
[2018-07-31 06:25] LABS: EOSINOPHILS % (AUTO) 2.5 % (0.0-3.0); HEMOGLOBIN 8.3 G/DL (14.2-18.0); LYMPHOCYTES % (AUTO) 18.8 % (20.0-45.0); MEAN CORPUSCULAR VOLUME 93 FL (80-99); MONOCYTES % (AUTO) 7.9 % (1.0-10.0); NEUTROPHILS % (AUTO) 69.8 % (45.0-75.0); PLATELET COUNT 231 K/UL (150-450); RED CELL DISTRIBUTION WIDTH 13.9 % (11.6-14.8)
--- NOTE | 2018-07-31 07:20 | NUR ---
NURSE NOTES: Report received from Martina Villarreal RN. Patient asleep in bed, opens eyes to voice, oriented x 3, able to follow commands and make needs known. SR 90 on monitoring and evaluation advisor. On room air, respirations even and unlabored. Suprapubic catheter 18Fr intact and draining yellow urine, no leaking noted. Right AC 20g IV site infusing insulin @ 1.2 units/hr and left hand 20g IV site infusing D5W with sodium bicarbonate @ 75 cc/hr, both asymptomatic. Bed locked in lowest position with side rails up x 3. All needs attended to. Call light within reach. Will continue to monitor.
--- NOTE | 2018-07-31 07:24 | General Progress Note ---
Assessment/Plan Problem List: (1) DKA (diabetic ketoacidoses) ICD Codes: E13.10 - DKA (diabetic ketoacidoses) SNOMED: 41173584 Qualifiers: Qualified Codes: E10.10 - Type 1 diabetes mellitus with ketoacidosis without coma (2) CKD (chronic kidney disease), stage III ICD Codes: N18.3 - CKD (chronic kidney disease), stage III SNOMED: 091773195 (3) encephalopathy due to metabolic do (4) Pulmonary HTN ICD Codes: I27.0 - Pulmonary HTN SNOMED: 63996843 Assessment/Plan AG improved but still open continue insulin gtt until AG is closed continue ICU care Subjective ROS Limited/Unobtainable: Yes Allergies: Coded Allergies: CEFEPIME (Verified Allergy, Intermediate, Rash, 03/01/18) Tolerates Carbapenem Subjective events noted presented from SNF with DKA Objective Last 24 Hour Vital Signs Date Time Temp Pulse Resp B/P (MAP) Pulse Ox O2 Delivery O2 Flow Rate FiO2 07/31/18 06:00 82 17 116/62 100 Room Air 07/31/18 05:00 98.3 81 19 155/72 100 Room Air 07/31/18 04:00 Room Air 07/31/18 04:00 82 07/31/18 04:00 98.3 81 19 148/76 100 Room Air 07/31/18 03:00 77 20 138/65 100 Room Air 07/31/18 02:00 90 19 157/77 100 Room Air 07/31/18 01:00 79 18 145/59 100 Room Air 07/31/18 00:00 78 07/31/18 00:00 Room Air 07/31/18 00:00 98.0 85 15 115/46 100 Room Air 07/30/18 23:00 78 17 113/56 100 Room Air 07/30/18 22:00 89 17 141/57 100 Room Air 07/30/18 21:00 80 17 125/48 100 Room Air 07/30/18 20:00 Room Air 07/30/18 20:00 97.5 74 17 101/48 100 Room Air 07/30/18 20:00 75 07/30/18 19:00 78 15 143/71 100 Room Air 07/30/18 18:00 74 18 109/49 100 Room Air 07/30/18 17:00 77 18 100/48 100 Room Air 07/30/18 16:00 Room Air 07/30/18 16:00 85 07/30/18 16:00 98.0 89 19 105/42 100 Room Air 07/30/18 14:00 89 19 105/47 100 Room Air 07/30/18 13:00 84 19 69/26 100 Room Air 07/30/18 12:00 88 07/30/18 12:00 Room Air 07/30/18 12:00 98.7 84 19 68/34 100 Room Air 07/30/18 11:00 65 20 91/51 100 Room Air 07/30/18 10:00 98 20 117/53 100 Room Air 07/30/18 09:00 100 22 96/37 100 Room Air 07/30/18 08:00 Room Air 07/30/18 08:00 98.7 100 19 95/55 100 Room Air 07/30/18 08:00 84 Intake and Output 07/30/18 07/31/18 19:00 07:00 Intake Total 1423.3 ml 471.4 ml Output Total 760 ml 870 ml Balance 663.3 ml -398.6 ml Intake Oral 240 ml IV Total 1403.3 ml 231.4 ml Other 20 ml Output Urine Total 760 ml 870 ml # Bowel Movements 2 Laboratory Tests 07/30/18 09:00: Arterial Blood pH 7.183*L, Arterial Blood Partial Pressure CO2 18.5*L, Arterial Blood Partial Pressure O2 110.0H, Arterial Blood HCO3 6.8*L, Arterial Blood Oxygen Saturation 96.9, Arterial Blood Base Excess -19.6*L, Mikael Test Positive 07/30/18 10:50: Erythrocyte Sedimentation Rate 52H 07/31/18 04:40: White Blood Count 5.0, Red Blood Count 2.70L, Hemoglobin 8.3L, Hematocrit 25.0L , Mean Corpuscular Volume 93, Mean Corpuscular Hemoglobin 30.7, Mean Corpuscular Hemoglobin Concent 33.2, Red Cell Distribution Width 13.9, Platelet Count 231, Mean Platelet Volume 6.7, Neutrophils (%) (Auto) 69.8, Lymphocytes (% ) (Auto) 18.8L, Monocytes (%) (Auto) 7.9, Eosinophils (%) (Auto) 2.5, Basophils (%) (Auto) 1.0, Sodium Level 149H, Potassium Level 4.1, Chloride Level 119H, Carbon Dioxide Level 14L, Anion Gap 16H, Blood Urea Nitrogen 87H, Creatinine 7.1H, Estimat Glomerular Filtration Rate 7.8, Glucose Level 161H, Uric Acid 7.9H , Calcium Level 8.2L, Phosphorus Level 5.0H, Magnesium Level 2.0, Total Bilirubin 0.4, Aspartate Amino Transf (AST/SGOT) 9L, Alanine Aminotransferase ( ALT/SGPT) 14, Alkaline Phosphatase 64, Total Protein 5.4L, Albumin 2.0L, Globulin 3.4, Albumin/Globulin Ratio 0.6L Height (Feet): 6 Height (Inches): 0.00 Weight (Pounds): 158 General Appearance: lethargic Neck: normal alignment Cardiovascular: tachycardia Respiratory/Chest: decreased breath sounds Abdomen: normal bowel sounds Edema: 1+ Arm (L), 1+ Arm (R), 1+ Leg (L), 1+ Leg (R), 1+ Pedal (L), 1+ Pedal ( R), 1+ Generalized Objective Current Medications Medications (Trade) Dose Ordered Sig/Dunia Route PRN Reason Start Time Stop Time Status Last Admin Dose Admin Dextrose (Dextrose 50%) 25 ml Q30M PRN IV HYPOGLYCEMIA 07/29/18 04:45 08/28/18 04:44 Dextrose (Dextrose 50%) 50 ml Q30M PRN IV HYPOGLYCEMIA 07/29/18 04:45 08/28/18 04:44 07/29/18 09:43 Duloxetine HCl (Cymbalta) 30 mg DAILY ORAL 07/30/18 09:00 08/29/18 08:59 07/30/18 08:29 Heparin Sodium (Porcine) (Heparin 5000 units/ml) 5,000 units EVERY 12 HOURS SUBQ 07/29/18 09:00 08/28/18 08:59 07/30/18 20:43 Insulin Human Regular (NovoLIN R) 5 units PRN PRN IV BS 200-299 07/29/18 04:45 08/28/18 04:44 Insulin Human Regular (NovoLIN R) 10 units PRN PRN IV BS=>300 07/29/18 04:45 08/28/18 04:44 Insulin Human Regular 100 units/ Sodium Chloride 101 ml @ 0 mls/hr Q24H IV 07/29/18 07:45 08/28/18 07:44 07/29/18 19:07 Meropenem 500 mg/ Sodium Chloride 55 ml @ 110 mls/hr Q24H IVPB 07/29/18 16:00 08/03/18 15:59 07/30/18 16:09 Miscellaneous Medication (Insulin Rate Change) 1 ea PRN PRN MISC Hyperglycemia 07/29/18 04:45 08/28/18 04:44 07/30/18 18:16 Pantoprazole (Protonix) 40 mg Q12HR IVP 07/29/18 21:00 08/28/18 08:59 07/30/18 20:42 Sevelamer Carbonate (Renvela) 800 mg THREE TIMES A DAY ORAL 07/29/18 13:00 08/28/18 12:59 07/30/18 17:18 Sodium Bicarbonate 100 ml/Dextrose 1,100 ml @ 75 mls/hr [id number] IV 07/30/18 10:00 08/29/18 09:59 07/30/18 22:39 Sodium Citrate (Bicitra) 30 ml EVERY 6 HOURS ORAL 07/29/18 12:00 08/28/18 11:59 07/31/18 05:28 Vitamin B Complex/ Vit C/Folic Acid (Nephrovite) 1 tab DAILY ORAL 07/30/18 09:00 08/29/18 08:59 07/30/18 08:29 Item Value Date Time Bedside Blood Glucose 164 mg/dl H 07/31/18 0400 Bedside Blood Glucose 152 mg/dl H 07/31/18 0000 Bedside Blood Glucose 136 mg/dl H 07/30/18 2000 Bedside Blood Glucose 125 mg/dl H 07/30/18 1816 Bedside Blood Glucose 173 mg/dl H 07/30/18 1400 Bedside Blood Glucose 185 mg/dl H 07/30/18 1000 [place] Jacques MD Jul 31, 2018 07:23
--- NOTE | 2018-07-31 07:48 | NUR ---
HAND-OFF: Report given to Sohan Clemente RN.
--- NOTE | 2018-07-31 07:57 | Pulmonolgy Critical Care Note ---
Critical Care - Asmt/Plan Assessment/Plan: ASSESSMENT DKA Sepsis Probable UTI Acute metabolic encephalopathy Acute on chronic renal failure (CKD st 4) Hyper K-resolved Metabolic acidosis Anemia of chronic kidney disease Protein calorie malnutrition R hip decub, POA MDD PLAN OF CARE ICU insulin drip continue until anion gap closed /per endo management pulse ox stable on room air no chest pain troponin elevated likely due to renal failure fup with CXR in am ABG and labs with severe metabolic acidosis continue IV fluids with dextrose and bicarb as per nephrology , bicarb improving monitor renal parameters and electrolytes ,avoid nephrotoxic, creat down to 7.1 needs dialysis as per nephro empiric antibiotic blood culture preliminary negative; urine culture + GPC ID follows monitor H&H with goal to keep hemoglobin above 7 dietary eval wound care as per protocol psychiatrist follows; psychiatric medication regimen optimized supportive care DNR/DNI case discussed and evaluated by supervising physician Critical Care - Objective Last 24 Hour Vital Signs Date Time Temp Pulse Resp B/P (MAP) Pulse Ox O2 Delivery O2 Flow Rate FiO2 07/31/18 06:00 82 17 116/62 100 Room Air 07/31/18 05:00 98.3 81 19 155/72 100 Room Air 07/31/18 04:00 Room Air 07/31/18 04:00 82 07/31/18 04:00 98.3 81 19 148/76 100 Room Air 07/31/18 03:00 77 20 138/65 100 Room Air 07/31/18 02:00 90 19 157/77 100 Room Air 07/31/18 01:00 79 18 145/59 100 Room Air 07/31/18 00:00 78 07/31/18 00:00 Room Air 07/31/18 00:00 98.0 85 15 115/46 100 Room Air 07/30/18 23:00 78 17 113/56 100 Room Air 07/30/18 22:00 89 17 141/57 100 Room Air 07/30/18 21:00 80 17 125/48 100 Room Air 07/30/18 20:00 Room Air 07/30/18 20:00 97.5 74 17 101/48 100 Room Air 07/30/18 20:00 75 07/30/18 19:00 78 15 143/71 100 Room Air 07/30/18 18:00 74 18 109/49 100 Room Air 07/30/18 17:00 77 18 100/48 100 Room Air 07/30/18 16:00 Room Air 07/30/18 16:00 85 07/30/18 16:00 98.0 89 19 105/42 100 Room Air 07/30/18 14:00 89 19 105/47 100 Room Air 07/30/18 13:00 84 19 69/26 100 Room Air 07/30/18 12:00 88 07/30/18 12:00 Room Air 07/30/18 12:00 98.7 84 19 68/34 100 Room Air 07/30/18 11:00 65 20 91/51 100 Room Air 07/30/18 10:00 98 20 117/53 100 Room Air 07/30/18 09:00 100 22 96/37 100 Room Air 07/30/18 08:00 Room Air 07/30/18 08:00 98.7 100 19 95/55 100 Room Air 07/30/18 08:00 84 Objective: Status: awake, confused Condition: critical HEENT: atraumatic, normocephalic Neck: full ROM Lungs: clear Heart: HR/BP stable Abdomen: soft, non-tender, active bowel sounds Extremities: no C/C/E Micro: Microbiology Date/Time Source Procedure Growth Status 07/29/18 05:29 Blood Blood Culture - Preliminary NO GROWTH AFTER 24 HOURS Resulted 07/29/18 05:14 Blood Blood Culture - Preliminary NO GROWTH AFTER 24 HOURS Resulted 07/29/18 00:30 Nasal Nares MRSA Culture - Final Staphylococcus Aureus - Mrsa Complete 07/29/18 05:15 Urine,Clean Catch Urine Culture - Final Gram Positive Cocci Complete 07/28/18 21:03 Urine,Clean Catch Urine Culture - Final Gram Positive Cocci Complete 07/29/18 00:30 Rectum - Preliminary Resulted Accucheck: 164 Critical Care - Subjective ROS Limited/Unobtainable: Yes Interval Events: no leukocytosis pulse ox stable on RA still elevated anion gap, on insulin gtt bicarb trending up -14 seen and evaluated by endo creat down to 7.1 Condition: critical IV Access: peripheral EKG Rhythm: Sinus Rhythm Fluids: D5W + 1 amp bicarb at 75 Drips: Insulin gtt at 1.2 u/hr I&O: Intake and Output 07/30/18 07/31/18 19:00 07:00 Intake Total 1423.3 ml 1028.25 ml Output Total 760 ml 870 ml Balance 663.3 ml 158.25 ml Intake Oral 240 ml IV Total 1403.3 ml 788.25 ml Other 20 ml Output Urine Total 760 ml 870 ml # Bowel Movements 2 CXR: Suspected atelectasis or scarring right Catherine Griffin [employer] Jul 31, 2018 07:57
--- NOTE | 2018-07-31 08:00 | NUR ---
NURSE NOTES: Pt A/Ox3. confused and forgetful. verbal outbursts. monitoring and evaluation advisor on, some leads removed. Pt on RA, O2 sat @ 97%. renal diet, appetite poor. Abdomen soft, round. Suprapubic 18 English, draining cloudy pale urine. skin intact. RAC 20G and a LT Hand 20G, puffy. D5W w/HcO3 running @ 75 ml/hr and insulin drip currently running at 1.2 units/hr using algorhythm 1. Bed in lowest position, call light within reach, bed alarms placed. Will continue to monitor and with patients plan of care.
[2018-07-31] MEDS: DULoxetine 30mg cap ORAL SCH (08:31)
[2018-07-31] MEDS: Pantoprazole Inj IVP SCH ×2 (08:31→20:57)
[2018-07-31] MEDS: Nephrovite tab (Rena-Vite) ORAL SCH (08:32)
[2018-07-31] MEDS: Heparin 5000 units/ml inj SUBQ SCH ×2 (08:37→20:58)
[2018-07-31] MEDS ORDERED: Albuterol/Ipratropium 3ml neb HHN PRN (09:15)
--- NOTE | 2018-07-31 10:00 | NUR ---
NURSE NOTES: Patient asleep.Turned and repositioned. Kept clean dry and comfortable. Will continue to monitor.
--- NOTE | 2018-07-31 10:03 | Urology Progress Note ---
Assessment/Plan Assessment/Plan 1. Urinary retention. 2. Neurogenic bladder. 3. History of chronic suprapubic tube. 4. BPH history. 5. History of end-stage renal disease. 6. Hematuria. 7. Pyuria. 8. Proteinuria. 9. Renal cysts. monitor clinically sp tube hand irrigated and do PRN plan to change soon abx as ordered f/u on blood cx Subjective Allergies: Coded Allergies: CEFEPIME (Verified Allergy, Intermediate, Rash, 03/01/18) Tolerates Carbapenem Subjective all noted, sp tube draining, some leakage Objective Last 24 Hour Vital Signs Date Time Temp Pulse Resp B/P (MAP) Pulse Ox O2 Delivery O2 Flow Rate FiO2 07/31/18 06:00 82 17 116/62 100 Room Air 07/31/18 05:00 98.3 81 19 155/72 100 Room Air 07/31/18 04:00 Room Air 07/31/18 04:00 82 07/31/18 04:00 98.3 81 19 148/76 100 Room Air 07/31/18 03:00 77 20 138/65 100 Room Air 07/31/18 02:00 90 19 157/77 100 Room Air 07/31/18 01:00 79 18 145/59 100 Room Air 07/31/18 00:00 78 07/31/18 00:00 Room Air 07/31/18 00:00 98.0 85 15 115/46 100 Room Air 07/30/18 23:00 78 17 113/56 100 Room Air 07/30/18 22:00 89 17 141/57 100 Room Air 07/30/18 21:00 80 17 125/48 100 Room Air 07/30/18 20:00 Room Air 07/30/18 20:00 97.5 74 17 101/48 100 Room Air 07/30/18 20:00 75 07/30/18 19:00 78 15 143/71 100 Room Air 07/30/18 18:00 74 18 109/49 100 Room Air 07/30/18 17:00 77 18 100/48 100 Room Air 07/30/18 16:00 Room Air 07/30/18 16:00 85 07/30/18 16:00 98.0 89 19 105/42 100 Room Air 07/30/18 14:00 89 19 105/47 100 Room Air 07/30/18 13:00 84 19 69/26 100 Room Air 07/30/18 12:00 88 07/30/18 12:00 Room Air 07/30/18 12:00 98.7 84 19 68/34 100 Room Air 07/30/18 11:00 65 20 91/51 100 Room Air Intake and Output 07/30/18 07/31/18 19:00 07:00 Intake Total 1423.3 ml 1028.25 ml Output Total 760 ml 950 ml Balance 663.3 ml 78.25 ml Intake Oral 240 ml IV Total 1403.3 ml 788.25 ml Other 20 ml Output Urine Total 760 ml 950 ml # Bowel Movements 2 Microbiology Date/Time Source Procedure Growth Status 07/29/18 05:29 Blood Blood Culture - Preliminary NO GROWTH AFTER 24 HOURS Resulted 07/29/18 00:30 Nasal Nares MRSA Culture - Final Staphylococcus Aureus - Mrsa Complete 07/29/18 05:15 Urine,Clean Catch Urine Culture - Final Gram Positive Cocci Complete 07/29/18 00:30 Rectum VRE Culture - Final Enterococcus Faecalis - Vre Enterococcus Faecium - Vre Complete Current Medications Medications (Trade) Dose Ordered Sig/Dunia Route PRN Reason Start Time Stop Time Status Last Admin Dose Admin Albuterol/ Ipratropium (Albuterol/ Ipratropium) 3 ml Q4H PRN HHN sob 07/31/18 09:15 08/05/18 09:14 Dextrose (Dextrose 50%) 25 ml Q30M PRN IV HYPOGLYCEMIA 07/29/18 04:45 08/28/18 04:44 Dextrose (Dextrose 50%) 50 ml Q30M PRN IV HYPOGLYCEMIA 07/29/18 04:45 08/28/18 04:44 07/29/18 09:43 Duloxetine HCl (Cymbalta) 30 mg DAILY ORAL 07/30/18 09:00 08/29/18 08:59 07/31/18 08:31 Heparin Sodium (Porcine) (Heparin 5000 units/ml) 5,000 units EVERY 12 HOURS SUBQ 07/29/18 09:00 08/28/18 08:59 07/31/18 08:37 Insulin Human Regular (NovoLIN R) 5 units PRN PRN IV BS 200-299 07/29/18 04:45 08/28/18 04:44 Insulin Human Regular (NovoLIN R) 10 units PRN PRN IV BS=>300 07/29/18 04:45 08/28/18 04:44 Insulin Human Regular 100 units/ Sodium Chloride 101 ml @ 0 mls/hr Q24H IV 07/29/18 07:45 08/28/18 07:44 07/31/18 08:39 Meropenem 500 mg/ Sodium Chloride 55 ml @ 110 mls/hr Q24H IVPB 07/29/18 16:00 08/03/18 15:59 07/30/18 16:09 Miscellaneous Medication (Insulin Rate Change) 1 ea PRN PRN MISC Hyperglycemia 07/29/18 04:45 08/28/18 04:44 07/30/18 18:16 Pantoprazole (Protonix) 40 mg Q12HR IVP 07/29/18 21:00 08/28/18 08:59 07/31/18 08:31 Sevelamer Carbonate (Renvela) 800 mg THREE TIMES A DAY ORAL 07/29/18 13:00 08/28/18 12:59 07/31/18 08:32 Sodium Bicarbonate 100 ml/Dextrose 1,100 ml @ 75 mls/hr [id number] IV 07/30/18 10:00 08/29/18 09:59 07/30/18 22:39 Sodium Citrate (Bicitra) 30 ml EVERY 6 HOURS ORAL 07/29/18 12:00 08/28/18 11:59 07/31/18 05:28 Vitamin B Complex/ Vit C/Folic Acid (Nephrovite) 1 tab DAILY ORAL 07/30/18 09:00 08/29/18 08:59 07/31/18 08:32 Laboratory Tests 07/30/18 10:50: Erythrocyte Sedimentation Rate 52H 07/31/18 04:40: White Blood Count 5.0, Red Blood Count 2.70L, Hemoglobin 8.3L, Hematocrit 25.0L , Mean Corpuscular Volume 93, Mean Corpuscular Hemoglobin 30.7, Mean Corpuscular Hemoglobin Concent 33.2, Red Cell Distribution Width 13.9, Platelet Count 231, Mean Platelet Volume 6.7, Neutrophils (%) (Auto) 69.8, Lymphocytes (% ) (Auto) 18.8L, Monocytes (%) (Auto) 7.9, Eosinophils (%) (Auto) 2.5, Basophils (%) (Auto) 1.0, Sodium Level 149H, Potassium Level 4.1, Chloride Level 119H, Carbon Dioxide Level 14L, Anion Gap 16H, Blood Urea Nitrogen 87H, Creatinine 7.1H, Estimat Glomerular Filtration Rate 7.8, Glucose Level 161H, Uric Acid 7.9H , Calcium Level 8.2L, Phosphorus Level 5.0H, Magnesium Level 2.0, Total Bilirubin 0.4, Aspartate Amino Transf (AST/SGOT) 9L, Alanine Aminotransferase ( ALT/SGPT) 14, Alkaline Phosphatase 64, Total Protein 5.4L, Albumin 2.0L, Globulin 3.4, Albumin/Globulin Ratio 0.6L Height (Feet): 6 Height (Inches): 0.00 Weight (Pounds): 158 Objective exam stable Ye Rios MD Jul 31, 2018 10:03
--- NOTE | 2018-07-31 10:35 | NUR ---
RD ASSESSMENT & RECOMMENDATIONS SEE CARE ACTIVITY FOR COMPLETE ASSESSMENT DAILY ESTIMATED NEEDS: Needs based on Renal no HD, DM, 71.8kg 25-35 kcals/kg 2713-5462 total kcals .6-1 g protein/kg 43-72 g total protein Fluid per MD NUTRITION DIAGNOSIS: 1) Decreased sodium, potassium, and protein needs R/T renal dysfunction as evidenced by pt w/ CKD, w/ elev Creat (7.1), BUN (87), elev BNP, elev K on adm, now wnl, pt refusing HD. 2) Altered nutrition related lab values r/t DKA as evidenced by elev BG on adm(616), Uglu 4+, on insulin drip. CURRENT DIET: RENAL, CCHO MED PO DIET RECOMMENDATIONS: RENAL/ CCHO MED ADDITIONAL RECOMMENDATIONS: * Obtain a recalibrated bed scale wt for accurate CBW * NEPRO 1 tetra foreign daily w/ con't poor po intake * Monitor lytes daily, need for con't renal diet restrictions. * add DAMIÁN BID for buttock skin integrity * Snacks in b/w meals TID * F/up w/ WC eval .
[2018-07-31] MEDS ORDERED: NS 275ml ONE (10:52)
--- NOTE | 2018-07-31 11:22 | Diagnostic Imaging Report ---
EXAM: XR Chest, 1 View CLINICAL HISTORY: SOB TECHNIQUE: Frontal view of the chest. COMPARISON: Chest x-ray 07/28/182033 FINDINGS: Lungs: Hypoventilatory lungs. No infiltrate or consolidation. Pleural space: Unremarkable. No pneumothorax. Heart: Unremarkable. No cardiomegaly. Mediastinum: Unremarkable. Bones/joints: Unremarkable. IMPRESSION: Hypoventilatory lungs. No infiltrate or consolidation.
--- NOTE | 2018-07-31 12:00 | NUR ---
NURSE NOTES: MD Chambers here to see pt. no new orders.
--- NOTE | 2018-07-31 12:26 | Nephrology Progress Note ---
Assessment/Plan Problem List: (1) Bladder outlet obstruction (2) Acute on chronic renal failure (3) Anemia in chronic kidney disease (4) BPH (benign prostatic hypertrophy) (5) DKA (diabetic ketoacidoses) (6) Encephalopathy acute Assessment ESRD , in need of dialysis , refuses- presents with high K Encephalopathy , Metabolic Acidosis , Uremic and Diabetic Sever Anemia: Mixed etiology HTn, but presents with low BP Supra Pubic Cath, h/o UTI, BPH Psych disease CAD, elevated Troponin I s/p DKAs Plan Hydrate- Transfuse Bicarbs Sugar control will do poorly in view of no dialysis plans DNR per orders Subjective ROS Limited/Unobtainable: No Constitutional: Reports: malaise, weakness Objective Objective Last 24 Hour Vital Signs Date Time Temp Pulse Resp B/P (MAP) Pulse Ox O2 Delivery O2 Flow Rate FiO2 07/31/18 10:00 84 17 113/60 100 Room Air 07/31/18 09:00 102 22 167/75 98 Room Air 07/31/18 08:00 Room Air 07/31/18 08:00 80 16 153/72 100 Room Air 07/31/18 08:00 82 07/31/18 07:00 98.5 88 16 165/71 100 Room Air 07/31/18 06:00 82 17 116/62 100 Room Air 07/31/18 05:00 98.3 81 19 155/72 100 Room Air 07/31/18 04:00 Room Air 07/31/18 04:00 82 07/31/18 04:00 98.3 81 19 148/76 100 Room Air 07/31/18 03:00 77 20 138/65 100 Room Air 07/31/18 02:00 90 19 157/77 100 Room Air 07/31/18 01:00 79 18 145/59 100 Room Air 07/31/18 00:00 78 07/31/18 00:00 Room Air 07/31/18 00:00 98.0 85 15 115/46 100 Room Air 07/30/18 23:00 78 17 113/56 100 Room Air 07/30/18 22:00 89 17 141/57 100 Room Air 07/30/18 21:00 80 17 125/48 100 Room Air 07/30/18 20:00 Room Air 07/30/18 20:00 97.5 74 17 101/48 100 Room Air 07/30/18 20:00 75 07/30/18 19:00 78 15 143/71 100 Room Air 07/30/18 18:00 74 18 109/49 100 Room Air 07/30/18 17:00 77 18 100/48 100 Room Air 07/30/18 16:00 Room Air 07/30/18 16:00 85 07/30/18 16:00 98.0 89 19 105/42 100 Room Air 07/30/18 14:00 89 19 105/47 100 Room Air 07/30/18 13:00 84 19 69/26 100 Room Air Intake and Output 07/30/18 07/31/18 19:00 07:00 Intake Total 1423.3 ml 1028.25 ml Output Total 760 ml 950 ml Balance 663.3 ml 78.25 ml Intake Oral 240 ml IV Total 1403.3 ml 788.25 ml Other 20 ml Output Urine Total 760 ml 950 ml # Bowel Movements 2 Laboratory Tests 07/31/18 04:40: White Blood Count 5.0, Red Blood Count 2.70L, Hemoglobin 8.3L, Hematocrit 25.0L , Mean Corpuscular Volume 93, Mean Corpuscular Hemoglobin 30.7, Mean Corpuscular Hemoglobin Concent 33.2, Red Cell Distribution Width 13.9, Platelet Count 231, Mean Platelet Volume 6.7, Neutrophils (%) (Auto) 69.8, Lymphocytes (% ) (Auto) 18.8L, Monocytes (%) (Auto) 7.9, Eosinophils (%) (Auto) 2.5, Basophils (%) (Auto) 1.0, Sodium Level 149H, Potassium Level 4.1, Chloride Level 119H, Carbon Dioxide Level 14L, Anion Gap 16H, Blood Urea Nitrogen 87H, Creatinine 7.1H, Estimat Glomerular Filtration Rate 7.8, Glucose Level 161H, Uric Acid 7.9H , Calcium Level 8.2L, Phosphorus Level 5.0H, Magnesium Level 2.0, Total Bilirubin 0.4, Aspartate Amino Transf (AST/SGOT) 9L, Alanine Aminotransferase ( ALT/SGPT) 14, Alkaline Phosphatase 64, Total Protein 5.4L, Albumin 2.0L, Globulin 3.4, Albumin/Globulin Ratio 0.6L Height (Feet): 6 Height (Inches): 0.00 Weight (Pounds): 158 General Appearance: no apparent distress, lethargic Cardiovascular: regular rhythm Respiratory/Chest: decreased breath sounds Abdomen: distended Luis Chambers MD Jul 31, 2018 12:26
--- NOTE | 2018-07-31 13:00 | NUR ---
NURSE NOTES: RODGER Griffin, here to see pt. no new orders.
--- NOTE | 2018-07-31 13:30 | NUR ---
CASE MANAGEMENT: REVIEW 07/31/2018 SI: HYPERGLYCEMIA . DIABETIC KETO ACIDOSIS T 98.5 HR 88 RR 16 B/P 165/71 SATS 100% ON RA NA 149 CL 119 CO2 14 BUN 87 CR 7.1 GLU 161 CA 8.2 PHOS 5 AST 9 IS: SODIUM BICARD IV @ 75 mL/HR BICITRA PO Q6H PROTONIX IV Q12H INSULIN DRIP PER PARAMETERS MEROPENEM IV Q24H ICU STATUS DCP: PATIENT IS FROM [facility]
--- NOTE | 2018-07-31 13:45 | Internal Med Progress Note ---
Subjective Date of Service: Jul 31, 2018 Physician Name Jose Glasgow Attending Physician Christopher Rosado MD Current Medications Medications (Trade) Dose Ordered Sig/Dunia Route PRN Reason Start Time Stop Time Status Last Admin Dose Admin Albuterol/ Ipratropium (Albuterol/ Ipratropium) 3 ml Q4H PRN HHN sob 07/31/18 09:15 08/05/18 09:14 Dextrose (Dextrose 50%) 25 ml Q30M PRN IV HYPOGLYCEMIA 07/29/18 04:45 08/28/18 04:44 Dextrose (Dextrose 50%) 50 ml Q30M PRN IV HYPOGLYCEMIA 07/29/18 04:45 08/28/18 04:44 07/29/18 09:43 Duloxetine HCl (Cymbalta) 30 mg DAILY ORAL 07/30/18 09:00 08/29/18 08:59 07/31/18 08:31 Heparin Sodium (Porcine) (Heparin 5000 units/ml) 5,000 units EVERY 12 HOURS SUBQ 07/29/18 09:00 08/28/18 08:59 07/31/18 08:37 Insulin Human Regular (NovoLIN R) 5 units PRN PRN IV BS 200-299 07/29/18 04:45 08/28/18 04:44 07/31/18 13:19 Insulin Human Regular (NovoLIN R) 10 units PRN PRN IV BS=>300 07/29/18 04:45 08/28/18 04:44 Insulin Human Regular 100 units/ Sodium Chloride 101 ml @ 0 mls/hr Q24H IV 07/29/18 07:45 08/28/18 07:44 07/31/18 13:18 Meropenem 500 mg/ Sodium Chloride 55 ml @ 110 mls/hr Q24H IVPB 07/29/18 16:00 08/03/18 15:59 07/30/18 16:09 Miscellaneous Medication (Insulin Rate Change) 1 ea PRN PRN MISC Hyperglycemia 07/29/18 04:45 08/28/18 04:44 07/30/18 18:16 Pantoprazole (Protonix) 40 mg Q12HR IVP 07/29/18 21:00 08/28/18 08:59 07/31/18 08:31 Sevelamer Carbonate (Renvela) 800 mg THREE TIMES A DAY ORAL 07/29/18 13:00 08/28/18 12:59 07/31/18 12:41 Sodium Bicarbonate 100 ml/Dextrose 1,100 ml @ 75 mls/hr [id number] IV 07/30/18 10:00 08/29/18 09:59 07/30/18 22:39 Sodium Citrate (Bicitra) 30 ml EVERY 6 HOURS ORAL 07/29/18 12:00 08/28/18 11:59 07/31/18 12:41 Vitamin B Complex/ Vit C/Folic Acid (Nephrovite) 1 tab DAILY ORAL 07/30/18 09:00 08/29/18 08:59 07/31/18 08:32 Allergies: Coded Allergies: CEFEPIME (Verified Allergy, Intermediate, Rash, 03/01/18) Tolerates Carbapenem ROS Limited/Unobtainable: No Constitutional: Reports: no symptoms HEENT: Reports: no symptoms Cardiovascular: Reports: no symptoms Respiratory: Reports: no symptoms Gastrointestinal/Abdominal: Reports: no symptoms Genitourinary: Reports: no symptoms Neurologic/Psychiatric: Reports: no symptoms Subjective 63 YO M with history of diabetes I admitted with hyperglycemia and DKA. Cover for Int Med-Dr Rosado. ICU. Continues on Insulin drip Objective Last Vital Signs Date Time Temp Pulse Resp B/P (MAP) Pulse Ox O2 Delivery O2 Flow Rate FiO2 07/31/18 10:00 84 17 113/60 100 Room Air 07/31/18 07:00 98.5 Laboratory Tests Test 07/31/18 04:40 White Blood Count 5.0 K/UL (4.8-10.8) Red Blood Count 2.70 M/UL (4.70-6.10) L Hemoglobin 8.3 G/DL (14.2-18.0) L Hematocrit 25.0 % (42.0-52.0) L Mean Corpuscular Volume 93 FL (80-99) Mean Corpuscular Hemoglobin 30.7 PG (27.0-31.0) Mean Corpuscular Hemoglobin Concent 33.2 G/DL (32.0-36.0) Red Cell Distribution Width 13.9 % (11.6-14.8) Platelet Count 231 K/UL (150-450) Mean Platelet Volume 6.7 FL (6.5-10.1) Neutrophils (%) (Auto) 69.8 % (45.0-75.0) Lymphocytes (%) (Auto) 18.8 % (20.0-45.0) L Monocytes (%) (Auto) 7.9 % (1.0-10.0) Eosinophils (%) (Auto) 2.5 % (0.0-3.0) Basophils (%) (Auto) 1.0 % (0.0-2.0) Sodium Level 149 MMOL/L (136-145) H Potassium Level 4.1 MMOL/L (3.5-5.1) Chloride Level 119 MMOL/L (98-107) H Carbon Dioxide Level 14 MMOL/L (21-32) L Anion Gap 16 mmol/L (5-15) H Blood Urea Nitrogen 87 mg/dL (7-18) H Creatinine 7.1 MG/DL (0.55-1.30) H Estimat Glomerular Filtration Rate 7.8 mL/min (>60) Glucose Level 161 MG/DL (74-106) H Uric Acid 7.9 MG/DL (2.6-7.2) H Calcium Level 8.2 MG/DL (8.5-10.1) L Phosphorus Level 5.0 MG/DL (2.5-4.9) H Magnesium Level 2.0 MG/DL (1.8-2.4) Total Bilirubin 0.4 MG/DL (0.2-1.0) Aspartate Amino Transf (AST/SGOT) 9 U/L (15-37) L Alanine Aminotransferase (ALT/SGPT) 14 U/L (12-78) Alkaline Phosphatase 64 U/L (46-116) Total Protein 5.4 G/DL (6.4-8.2) L Albumin 2.0 G/DL (3.4-5.0) L Globulin 3.4 g/dL Albumin/Globulin Ratio 0.6 (1.0-2.7) L Microbiology Date/Time Source Procedure Growth Status 07/29/18 05:29 Blood Blood Culture - Preliminary NO GROWTH AFTER 24 HOURS Resulted 07/29/18 05:14 Blood Blood Culture - Preliminary NO GROWTH AFTER 24 HOURS Resulted 07/29/18 00:30 Nasal Nares MRSA Culture - Final Staphylococcus Aureus - Mrsa Complete 07/29/18 05:15 Urine,Clean Catch Urine Culture - Final Gram Positive Cocci Complete 07/28/18 21:03 Urine,Clean Catch Urine Culture - Final Gram Positive Cocci Complete 07/29/18 00:30 Rectum VRE Culture - Final Enterococcus Faecalis - Vre Enterococcus Faecium - Vre Complete 07/29/18 00:30 Rectum - Final NO CARBAPENEM-RESISTANT ENTEROBACTERI... Complete Intake and Output 07/30/18 07/31/18 19:00 07:00 Intake Total 1423.3 ml 1028.25 ml Output Total 760 ml 950 ml Balance 663.3 ml 78.25 ml Intake Oral 240 ml IV Total 1403.3 ml 788.25 ml Other 20 ml Output Urine Total 760 ml 950 ml # Bowel Movements 2 Objective GENERAL: The patient is awake and responsive but confused, in no acute distress. HEAD AND NECK: Pupils are equal and reactive to light. Extraocular movements are intact in the right eye. Left eye blindness, Neck was supple. No JVD. LUNGS: fair air entry. No wheezing or rales. HEART: S1 and S2. Distant heart sounds. No Murmur or gallops. ABDOMEN: Soft, nontender, and nontender. Suprapubic catheter was noted. EXTREMITIES: No cyanosis or clubbing. Bilateral lower extremity trace LE's edema. NEUROLOGIC: Cranial nerves II through XII grossly intact. Motor is 5/5 in all extremities. Gait was not assessed due to the patient's status. Assessment/Plan Assessment/Plan ASSESSMENT: 1. DKA. 2. Hypertension. 3. Dyslipidemia. 4. Diabetes type 1 with prior history of diabetic ketoacidosis. 5. Diabetic retinopathy of the left eye blindness. 6. End-stage renal disease secondary to diabetic nephrosclerosis. 7. Coronary artery disease with prior history of myocardial infarction. 8. 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 9. 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 10. Secondary hyperparathyroidism with vitamin D deficiency. 11. Anemia of chronic kidney disease. 12. Metabolic acidosis. 13. Depression with prior suicide attempt. 14. Acute encephalopathy due to toxic metabolic encephalopathy due to DKA. PLAN: 1. ICU status 2. Code status is DNR/DNI as per POLST in the chart. 3. Resume snf medications. 4. Follow up with Labs and culture. 5. Broad spectrum antibiotic with Meropenem. 6. DVT prophylaxis, heparin subcutaneous. 7. We will follow up with Dr. Delgado with critical care , Dr. Chambers from Nephrology and Dr. Rich Wick from Infectious Disease. 8. We will follow up with the cultures and laboratory in the morning. 9. Insulin drip per endocrinology Jose Glasgow MD Jul 31, 2018 13:45
--- NOTE | 2018-07-31 15:00 | NUR ---
NURSE NOTES: pt very agitated, verbal insults to staff. refusing to be repositioned and refusing to keep arm straight for iv administration. will continue to monitor pt.
--- NOTE | 2018-07-31 16:00 | NUR ---
NURSE NOTES: found pt disrobed, secured entrance monitor leads removed. pt lying on side curled up in position. verbal insults to staff. refusing to keep arm straight for iv administration. C.N aware.
[2018-07-31] MEDS: Sodium Bicarbonate 100 ML in D5W 1000ml 1,000 ML IV SCH (16:08)
[2018-07-31] MEDS: Meropenem 500 MG in NS 55 ML IVPB SCH (16:08)
--- NOTE | 2018-07-31 18:15 | NUR ---
HAND-OFF: Report given to Daisy. pt in no acute distress.
--- NOTE | 2018-07-31 19:30 | NUR ---
NURSE NOTES:Received pt asleep but easily arousable to tactile stimulation. Pt repositioned himself, mostly on his RT side and in position, SR on the monitor, Bp stable, afebrile, on Insulin drip at 2.5u/hr when received as well as with D5W + 1amp NAHCO3 at 75ml/hr. Site atraumatic. Suprapubic cath been draining light yellow cloudy urine lg in amt. Will continue to monitor.
--- NOTE | 2018-07-31 20:00 | NUR ---
NURSE NOTES:Blood sugar checked 77mg/dl. Turned off insulin drip.to re check in 30 minutes.
--- NOTE | 2018-07-31 20:30 | NUR ---
NURSE NOTES:Blood sugar check 77mg/dl continued to turned off insulin drip. Give sweetened orange juice to pt.
--- NOTE | 2018-07-31 21:30 | NUR ---
NURSE NOTES:Accucheck 154mg/dl -insulin drip at 1u/hr at this time.
--- NOTE | 2018-07-31 22:00 | NUR ---
NURSE NOTES:Pt is very inappropriate and non compliant yell most of the time. Set limits for inappropriate behavior.
[2018-08-01] VITALS (15 sets, daily range): BP systolic 119–185; BP diastolic 54–98
--- NOTE | 2018-08-01 00:12 | NUR ---
NURSE NOTES:Pt refused Bicitra medication.
[2018-08-01] MEDS: Insulin Rate Change 1 Each MISC PRN (02:02)
--- NOTE | 2018-08-01 02:05 | NUR ---
NURSE NOTES:Accucheck 199- insulin drip at 1.5u/hr at this time.
--- NOTE | 2018-08-01 04:00 | NUR ---
NURSE NOTES:refused bath this am. non compliant and yelling.
[2018-08-01] MEDS: Sodium Citrate 30ml ORAL SCH ×6 (05:44→23:53)
[2018-08-01] MEDS: Sodium Bicarbonate 100 ML in D5W 1000ml 1,000 ML IV SCH ×2 (05:45→16:34)
--- NOTE | 2018-08-01 06:00 | NUR ---
NURSE NOTES:Blood sugar 186 at 1.5u/hr at this time.
[2018-08-01 06:04] LABS: BASOPHILS % (AUTO) 0.8 % (0.0-2.0); EOSINOPHILS % (AUTO) 5.3 % (0.0-3.0); HEMATOCRIT 24.3 % (42.0-52.0); HEMOGLOBIN 8.3 G/DL (14.2-18.0); LYMPHOCYTES % (AUTO) 22.4 % (20.0-45.0); MEAN CORPUSCULAR VOLUME 92 FL (80-99); MONOCYTES % (AUTO) 7.9 % (1.0-10.0); NEUTROPHILS % (AUTO) 63.6 % (45.0-75.0); PLATELET COUNT 203 K/UL (150-450); RED BLOOD COUNT 2.65 M/UL (4.70-6.10); RED CELL DISTRIBUTION WIDTH 13.5 % (11.6-14.8); WHITE BLOOD COUNT 5.8 K/UL (4.8-10.8)
[2018-08-01 06:29] LABS: ANION GAP 15 mmol/L (5-15); BLOOD UREA NITROGEN 79 mg/dL (7-18); CALCIUM 8.3 MG/DL (8.5-10.1); CARBON DIOXIDE 17 MMOL/L (21-32); CHLORIDE 114 MMOL/L (98-107); CREATININE 6.5 MG/DL (0.55-1.30); POTASSIUM 3.5 MMOL/L (3.5-5.1); SODIUM 146 MMOL/L (136-145)
--- NOTE | 2018-08-01 07:00 | NUR ---
NURSE NOTES:Dr Rios was here changing pts suprapubic cath.
[2018-08-01 07:19] LABS: ALANINE AMINOTRANSFERASE 7 U/L (12-78); ALBUMIN 1.9 G/DL (3.4-5.0); ALKALINE PHOSPHATASE 66 U/L (46-116); ASPARTATE AMINO TRANSFERASE 13 U/L (15-37); BILIRUBIN,DIRECT 0.1 MG/DL (0.0-0.3); BILIRUBIN,TOTAL 0.4 MG/DL (0.2-1.0); PHOSPHORUS 4.2 MG/DL (2.5-4.9)
--- NOTE | 2018-08-01 07:20 | General Progress Note ---
Assessment/Plan Problem List: (1) DKA (diabetic ketoacidoses) ICD Codes: E13.10 - DKA (diabetic ketoacidoses) SNOMED: 63719985 Qualifiers: Qualified Codes: E10.10 - Type 1 diabetes mellitus with ketoacidosis without coma (2) CKD (chronic kidney disease), stage III ICD Codes: N18.3 - CKD (chronic kidney disease), stage III SNOMED: 955909244 (3) encephalopathy due to metabolic do (4) Pulmonary HTN ICD Codes: I27.0 - Pulmonary HTN SNOMED: 93450100 Assessment/Plan AG is closed discontinue insulin gtt start Levemir 12 units bid start Novolog 5 units ac tid NISS ac / hs Subjective ROS Limited/Unobtainable: Yes Allergies: Coded Allergies: CEFEPIME (Verified Allergy, Intermediate, Rash, 03/01/18) Tolerates Carbapenem Subjective events noted Objective Last 24 Hour Vital Signs Date Time Temp Pulse Resp B/P (MAP) Pulse Ox O2 Delivery O2 Flow Rate FiO2 08/01/18 06:00 82 20 160/60 100 Room Air 08/01/18 05:00 78 20 158/59 100 Room Air 08/01/18 04:00 Room Air 08/01/18 04:00 98.4 74 20 145/70 100 Room Air 08/01/18 04:00 86 08/01/18 03:00 74 17 170/68 100 Room Air 08/01/18 02:00 74 17 150/55 100 Room Air 08/01/18 01:00 80 18 156/67 100 Room Air 08/01/18 00:00 98.1 81 18 152/65 100 Room Air 08/01/18 00:00 90 08/01/18 00:00 Room Air 07/31/18 23:00 81 18 150/68 100 Room Air 07/31/18 22:00 80 18 146/55 100 Room Air 07/31/18 21:00 80 16 140/50 100 Room Air 07/31/18 20:00 Room Air 07/31/18 20:00 98.4 77 16 138/55 100 Room Air 07/31/18 20:00 77 07/31/18 18:00 98.6 73 16 100 Room Air 07/31/18 17:00 100 Room Air 07/31/18 16:00 79 16 100 Room Air 07/31/18 16:00 Room Air 07/31/18 16:00 74 07/31/18 15:00 82 11 98 Room Air 07/31/18 14:55 82 19 141/57 100 Room Air 07/31/18 14:00 81 18 118/60 100 Room Air 07/31/18 13:00 98.2 81 18 113/60 100 Room Air 07/31/18 12:00 87 07/31/18 12:00 83 18 113/60 100 Room Air 07/31/18 12:00 Room Air 07/31/18 11:00 82 18 127/53 100 Room Air 07/31/18 10:00 84 17 113/60 100 Room Air 07/31/18 09:00 102 22 167/75 98 Room Air 07/31/18 08:00 Room Air 07/31/18 08:00 80 16 153/72 100 Room Air 07/31/18 08:00 82 Intake and Output 07/31/18 08/01/18 19:00 07:00 Intake Total 1256.64 ml 1231.0 ml Output Total 825 ml 1200 ml Balance 431.64 ml 31.0 ml Intake Oral 490 ml 400 ml IV Total 766.64 ml 831.0 ml Output Urine Total 825 ml 1200 ml # Bowel Movements 2 Laboratory Tests 08/01/18 04:30: White Blood Count 5.8, Red Blood Count 2.65L, Hemoglobin 8.3L, Hematocrit 24.3L , Mean Corpuscular Volume 92, Mean Corpuscular Hemoglobin 31.2H, Mean Corpuscular Hemoglobin Concent 34.1, Red Cell Distribution Width 13.5, Platelet Count 203, Mean Platelet Volume 6.3L, Neutrophils (%) (Auto) 63.6, Lymphocytes ( %) (Auto) 22.4, Monocytes (%) (Auto) 7.9, Eosinophils (%) (Auto) 5.3H, Basophils (%) (Auto) 0.8, Sodium Level 146H, Potassium Level 3.5, Chloride Level 114H, Carbon Dioxide Level 17L, Anion Gap 15, Blood Urea Nitrogen 79H, Creatinine 6.5H, Estimat Glomerular Filtration Rate 8.7, Glucose Level 171H, Uric Acid [Pending], Calcium Level 8.3L, Phosphorus Level [Pending], Magnesium Level [Pending], Total Bilirubin [Pending], Direct Bilirubin [Pending], Aspartate Amino Transf (AST/SGOT) [Pending], Alanine Aminotransferase (ALT/SGPT ) [Pending], Alkaline Phosphatase [Pending], Total Protein [Pending], Albumin [ Pending] Height (Feet): 6 Height (Inches): 0.00 Weight (Pounds): 155 General Appearance: no apparent distress Neck: normal alignment Cardiovascular: normal rate Respiratory/Chest: decreased breath sounds Abdomen: normal bowel sounds Pelvis: normal external exam Edema: 2+ Arm (L), 2+ Arm (R), 2+ Leg (L), 2+ Leg (R), 2+ Pedal (L), 2+ Pedal ( R), 2+ Generalized Objective Current Medications Medications (Trade) Dose Ordered Sig/Dunia Route PRN Reason Start Time Stop Time Status Last Admin Dose Admin Albuterol/ Ipratropium (Albuterol/ Ipratropium) 3 ml Q4H PRN HHN sob 07/31/18 09:15 08/05/18 09:14 Dextrose (Dextrose 50%) 25 ml Q30M PRN IV HYPOGLYCEMIA 07/29/18 04:45 08/28/18 04:44 Dextrose (Dextrose 50%) 50 ml Q30M PRN IV HYPOGLYCEMIA 07/29/18 04:45 08/28/18 04:44 07/29/18 09:43 Duloxetine HCl (Cymbalta) 30 mg DAILY ORAL 07/30/18 09:00 08/29/18 08:59 07/31/18 08:31 Heparin Sodium (Porcine) (Heparin 5000 units/ml) 5,000 units EVERY 12 HOURS SUBQ 07/29/18 09:00 08/28/18 08:59 07/31/18 20:58 Insulin Human Regular (NovoLIN R) 5 units PRN PRN IV BS 200-299 07/29/18 04:45 08/28/18 04:44 07/31/18 13:19 Insulin Human Regular (NovoLIN R) 10 units PRN PRN IV BS=>300 07/29/18 04:45 08/28/18 04:44 Insulin Human Regular 100 units/ Sodium Chloride 101 ml @ 0 mls/hr Q24H IV 07/29/18 07:45 08/28/18 07:44 08/01/18 02:05 Meropenem 500 mg/ Sodium Chloride 55 ml @ 110 mls/hr Q24H IVPB 07/29/18 16:00 08/03/18 15:59 07/31/18 16:08 Miscellaneous Medication (Insulin Rate Change) 1 ea PRN PRN MISC Hyperglycemia 07/29/18 04:45 08/28/18 04:44 08/01/18 02:02 Pantoprazole (Protonix) 40 mg Q12HR IVP 07/29/18 21:00 08/28/18 08:59 07/31/18 20:57 Sevelamer Carbonate (Renvela) 800 mg THREE TIMES A DAY ORAL 07/29/18 13:00 08/28/18 12:59 07/31/18 12:41 Sodium Bicarbonate 100 ml/Dextrose 1,100 ml @ 75 mls/hr [id number] IV 07/30/18 10:00 08/29/18 09:59 08/01/18 05:45 Sodium Citrate (Bicitra) 30 ml EVERY 6 HOURS ORAL 07/29/18 12:00 08/28/18 11:59 08/01/18 05:44 Vitamin B Complex/ Vit C/Folic Acid (Nephrovite) 1 tab DAILY ORAL 07/30/18 09:00 08/29/18 08:59 07/31/18 08:32 Item Value Date Time Bedside Blood Glucose 186 mg/dl H 08/01/18 0400 Bedside Blood Glucose 199 mg/dl H 08/01/18 0205 Bedside Blood Glucose 154 mg/dl H 07/31/18 2200 Bedside Blood Glucose 240 mg/dl H 07/31/18 1600 Bedside Blood Glucose 224 mg/dl H 07/31/18 1319 Bedside Blood Glucose 147 mg/dl H 07/31/18 0839 Bedside Blood Glucose 164 mg/dl H 07/31/18 0400 Bedside Blood Glucose 152 mg/dl H 07/31/18 0000 Modesto Jacques MD Aug 01, 2018 07:20
--- NOTE | 2018-08-01 07:30 | NUR ---
NURSE NOTES: Received patient and the change of shift from out going nurse Daisy RN. Patient is awake, alert and verbally responsive with care and follows aimplw command. Currently, patient is on insulin drip at at 1.5 unit/hr. Dr. Rios changed suprapubic catheter at bedside. IVF D5W is infusing @ 75ml/hr via peripheral line on left upper arm and no s/sof filtration or infection. Suprapubic catheter intact in place with new dressing. Skin intact. HR 89 B/P 152/61.
--- NOTE | 2018-08-01 07:40 | NUR ---
HAND-OFF: Report given to Paul Garcia using sbar.
--- NOTE | 2018-08-01 07:51 | Urology Progress Note ---
Assessment/Plan Assessment/Plan 1. Urinary retention. 2. Neurogenic bladder. 3. History of chronic suprapubic tube. 4. BPH history. 5. History of end-stage renal disease. 6. Hematuria. 7. Pyuria. 8. Proteinuria. 9. Renal cysts. monitor clinically I personally removed old sp tube new 18f sp tube inserted, hand irrigated and do PRN position is satisfactory abx as ordered f/u on blood cx Subjective Allergies: Coded Allergies: CEFEPIME (Verified Allergy, Intermediate, Rash, 03/01/18) Tolerates Carbapenem Subjective all noted, sp tube draining, some leakage Objective Last 24 Hour Vital Signs Date Time Temp Pulse Resp B/P (MAP) Pulse Ox O2 Delivery O2 Flow Rate FiO2 08/01/18 06:00 82 20 160/60 100 Room Air 08/01/18 05:00 78 20 158/59 100 Room Air 08/01/18 04:00 Room Air 08/01/18 04:00 98.4 74 20 145/70 100 Room Air 08/01/18 04:00 86 08/01/18 03:00 74 17 170/68 100 Room Air 08/01/18 02:00 74 17 150/55 100 Room Air 08/01/18 01:00 80 18 156/67 100 Room Air 08/01/18 00:00 98.1 81 18 152/65 100 Room Air 08/01/18 00:00 90 08/01/18 00:00 Room Air 07/31/18 23:00 81 18 150/68 100 Room Air 07/31/18 22:00 80 18 146/55 100 Room Air 07/31/18 21:00 80 16 140/50 100 Room Air 07/31/18 20:00 Room Air 07/31/18 20:00 98.4 77 16 138/55 100 Room Air 07/31/18 20:00 77 07/31/18 18:00 98.6 73 16 100 Room Air 07/31/18 17:00 100 Room Air 07/31/18 16:00 79 16 100 Room Air 07/31/18 16:00 Room Air 07/31/18 16:00 74 07/31/18 15:00 82 11 98 Room Air 07/31/18 14:55 82 19 141/57 100 Room Air 07/31/18 14:00 81 18 118/60 100 Room Air 07/31/18 13:00 98.2 81 18 113/60 100 Room Air 07/31/18 12:00 87 07/31/18 12:00 83 18 113/60 100 Room Air 07/31/18 12:00 Room Air 07/31/18 11:00 82 18 127/53 100 Room Air 07/31/18 10:00 84 17 113/60 100 Room Air 07/31/18 09:00 102 22 167/75 98 Room Air 07/31/18 08:00 Room Air 07/31/18 08:00 80 16 153/72 100 Room Air 07/31/18 08:00 82 Intake and Output 07/31/18 08/01/18 19:00 07:00 Intake Total 1256.64 ml 1231.0 ml Output Total 825 ml 1200 ml Balance 431.64 ml 31.0 ml Intake Oral 490 ml 400 ml IV Total 766.64 ml 831.0 ml Output Urine Total 825 ml 1200 ml # Bowel Movements 2 Microbiology Date/Time Source Procedure Growth Status 07/29/18 05:29 Blood Blood Culture - Preliminary NO GROWTH AFTER 48 HOURS Resulted 07/29/18 00:30 Nasal Nares MRSA Culture - Final Staphylococcus Aureus - Mrsa Complete 07/29/18 05:15 Urine,Clean Catch Urine Culture - Final Gram Positive Cocci Complete 07/29/18 00:30 Rectum VRE Culture - Final Enterococcus Faecalis - Vre Enterococcus Faecium - Vre Complete Current Medications Medications (Trade) Dose Ordered Sig/Dunia Route PRN Reason Start Time Stop Time Status Last Admin Dose Admin Albuterol/ Ipratropium (Albuterol/ Ipratropium) 3 ml Q4H PRN HHN sob 07/31/18 09:15 08/05/18 09:14 Dextrose (Dextrose 50%) 25 ml Q30M PRN IV Hypoglycemia 08/01/18 07:30 08/31/18 07:29 Dextrose (Dextrose 50%) 50 ml Q30M PRN IV Hypoglycemia 08/01/18 07:30 08/31/18 07:29 Duloxetine HCl (Cymbalta) 30 mg DAILY ORAL 07/30/18 09:00 08/29/18 08:59 07/31/18 08:31 Heparin Sodium (Porcine) (Heparin 5000 units/ml) 5,000 units EVERY 12 HOURS SUBQ 07/29/18 09:00 08/28/18 08:59 07/31/18 20:58 Insulin Aspart (NovoLOG) BEFORE MEALS AND HS SUBQ 08/01/18 07:30 08/31/18 07:29 Insulin Aspart (NovoLOG) 5 units NOVOTIAC SUBQ 08/01/18 07:30 08/31/18 07:29 Insulin Detemir (Levemir) 12 units BID SUBQ 08/01/18 09:00 08/31/18 08:59 Meropenem 500 mg/ Sodium Chloride 55 ml @ 110 mls/hr Q24H IVPB 07/29/18 16:00 08/03/18 15:59 07/31/18 16:08 Miscellaneous Medication (Insulin Rate Change) 1 ea PRN PRN MISC Hyperglycemia 07/29/18 04:45 08/28/18 04:44 08/01/18 02:02 Pantoprazole (Protonix) 40 mg Q12HR IVP 07/29/18 21:00 08/28/18 08:59 07/31/18 20:57 Sevelamer Carbonate (Renvela) 800 mg THREE TIMES A DAY ORAL 07/29/18 13:00 08/28/18 12:59 07/31/18 12:41 Sodium Bicarbonate 100 ml/Dextrose 1,100 ml @ 75 mls/hr [id number] IV 07/30/18 10:00 08/29/18 09:59 08/01/18 05:45 Sodium Citrate (Bicitra) 30 ml EVERY 6 HOURS ORAL 07/29/18 12:00 08/28/18 11:59 08/01/18 05:44 Vitamin B Complex/ Vit C/Folic Acid (Nephrovite) 1 tab DAILY ORAL 07/30/18 09:00 08/29/18 08:59 07/31/18 08:32 Laboratory Tests 08/01/18 04:30: White Blood Count 5.8, Red Blood Count 2.65L, Hemoglobin 8.3L, Hematocrit 24.3L , Mean Corpuscular Volume 92, Mean Corpuscular Hemoglobin 31.2H, Mean Corpuscular Hemoglobin Concent 34.1, Red Cell Distribution Width 13.5, Platelet Count 203, Mean Platelet Volume 6.3L, Neutrophils (%) (Auto) 63.6, Lymphocytes ( %) (Auto) 22.4, Monocytes (%) (Auto) 7.9, Eosinophils (%) (Auto) 5.3H, Basophils (%) (Auto) 0.8, Sodium Level 146H, Potassium Level 3.5, Chloride Level 114H, Carbon Dioxide Level 17L, Anion Gap 15, Blood Urea Nitrogen 79H, Creatinine 6.5H, Estimat Glomerular Filtration Rate 8.7, Glucose Level 171H, Uric Acid 7.4H, Calcium Level 8.3L, Phosphorus Level 4.2, Magnesium Level 1.7L, Total Bilirubin 0.4, Direct Bilirubin 0.1, Aspartate Amino Transf (AST/SGOT) 13L , Alanine Aminotransferase (ALT/SGPT) 7L, Alkaline Phosphatase 66, Total Protein 5.4L, Albumin 1.9L Height (Feet): 6 Height (Inches): 0.00 Weight (Pounds): 155 Objective exam stable Ye Rios MD Aug 01, 2018 07:51
[2018-08-01] MEDS ORDERED: Levemir Flexpen SUBQ SCH (09:00)
[2018-08-01] MEDS: DULoxetine 30mg cap ORAL SCH (09:12)
[2018-08-01] MEDS: Nephrovite tab (Rena-Vite) ORAL SCH (09:12)
[2018-08-01] MEDS: Pantoprazole Inj IVP SCH (09:12)
[2018-08-01] MEDS: NovoLOG Insulin Flexpen SUBQ SCH ×7 (09:15→21:00)
[2018-08-01] MEDS: Heparin 5000 units/ml inj SUBQ SCH ×2 (09:19→21:03)
--- NOTE | 2018-08-01 09:30 | NUR ---
NURSE NOTES: Patient was seen by Dr. Chambers and patient refused hemodialysis. mBp 157/56 and HR 83.
--- NOTE | 2018-08-01 10:12 | Infectious Diseases Prog Note ---
Assessment/Plan Assessment/Plan Assessment: Severe sepsis -likely 2ry to UTI- r/o bacteremia -u.a wbc tntc, nit neg, luek +3; ucx <10k GPC -Bcx NTD -CXR: Suspected atelectasis or scarring right Afebrile Leukocytosis, SP DKA RIVKA, improving hx of recent sepsis 2ry to UTI and bacteremia 07/08/18 UCx - P.a. MDR and Providencia 07/08/18 BCx ESBL Proteus and K. pneumo Dm2 HLD MDD with suicidal attempts in the past w/ resultant chronic encephalopathy CAD/TX BPH anemia asthma colonic polyps ESRD s/p renal and pancreas tx ~10 yrs ago now CKD 4 ConS bacteremia/line infection urinary retention s/p suprapubic catheter 09/2017 recurrent hematuria multiple hospital admissions recurrent UTI DNR Plan: - Cont empiric Meropenem d# 4/5 pending cultuers 07/29 SP one dose Amikacin -07/22 SP Meropenem, #14 - f/u cx -Monitor CBC/CMP, temperatures Subjective Allergies: Coded Allergies: CEFEPIME (Verified Allergy, Intermediate, Rash, 03/01/18) Tolerates Carbapenem Subjective afebrile no leukocytosis Bcx NTD Objective Vital Signs Last 24 Hour Vital Signs Date Time Temp Pulse Resp B/P (MAP) Pulse Ox O2 Delivery O2 Flow Rate FiO2 08/01/18 08:00 Room Air 08/01/18 08:00 98 08/01/18 08:00 98.3 98 19 185/98 99 Room Air 08/01/18 07:00 92 17 152/61 99 Room Air 08/01/18 06:00 82 20 160/60 100 Room Air 08/01/18 05:00 78 20 158/59 100 Room Air 08/01/18 04:00 Room Air 08/01/18 04:00 98.4 74 20 145/70 100 Room Air 08/01/18 04:00 86 08/01/18 03:00 74 17 170/68 100 Room Air 08/01/18 02:00 74 17 150/55 100 Room Air 08/01/18 01:00 80 18 156/67 100 Room Air 08/01/18 00:00 98.1 81 18 152/65 100 Room Air 08/01/18 00:00 90 08/01/18 00:00 Room Air 07/31/18 23:00 81 18 150/68 100 Room Air 07/31/18 22:00 80 18 146/55 100 Room Air 07/31/18 21:00 80 16 140/50 100 Room Air 07/31/18 20:00 Room Air 07/31/18 20:00 98.4 77 16 138/55 100 Room Air 07/31/18 20:00 77 07/31/18 18:00 98.6 73 16 100 Room Air 07/31/18 17:00 100 Room Air 07/31/18 16:00 79 16 100 Room Air 07/31/18 16:00 Room Air 07/31/18 16:00 74 07/31/18 15:00 82 11 98 Room Air 07/31/18 14:55 82 19 141/57 100 Room Air 07/31/18 14:00 81 18 118/60 100 Room Air 07/31/18 13:00 98.2 81 18 113/60 100 Room Air 07/31/18 12:00 87 07/31/18 12:00 83 18 113/60 100 Room Air 07/31/18 12:00 Room Air 07/31/18 11:00 82 18 127/53 100 Room Air Height (Feet): 6 Height (Inches): 0.00 Weight (Pounds): 155 Objective Status: awake Condition: critical HEENT: atraumatic Lungs: chest wall tender Heart: HR/BP stable Abdomen: soft, non-tender Extremities: no C/C/E Decubiti: location Laboratory Tests Test 08/01/18 04:30 White Blood Count 5.8 K/UL (4.8-10.8) Red Blood Count 2.65 M/UL (4.70-6.10) L Hemoglobin 8.3 G/DL (14.2-18.0) L Hematocrit 24.3 % (42.0-52.0) L Mean Corpuscular Volume 92 FL (80-99) Mean Corpuscular Hemoglobin 31.2 PG (27.0-31.0) H Mean Corpuscular Hemoglobin Concent 34.1 G/DL (32.0-36.0) Red Cell Distribution Width 13.5 % (11.6-14.8) Platelet Count 203 K/UL (150-450) Mean Platelet Volume 6.3 FL (6.5-10.1) L Neutrophils (%) (Auto) 63.6 % (45.0-75.0) Lymphocytes (%) (Auto) 22.4 % (20.0-45.0) Monocytes (%) (Auto) 7.9 % (1.0-10.0) Eosinophils (%) (Auto) 5.3 % (0.0-3.0) H Basophils (%) (Auto) 0.8 % (0.0-2.0) Sodium Level 146 MMOL/L (136-145) H Potassium Level 3.5 MMOL/L (3.5-5.1) Chloride Level 114 MMOL/L (98-107) H Carbon Dioxide Level 17 MMOL/L (21-32) L Anion Gap 15 mmol/L (5-15) Blood Urea Nitrogen 79 mg/dL (7-18) H Creatinine 6.5 MG/DL (0.55-1.30) H Estimat Glomerular Filtration Rate 8.7 mL/min (>60) Glucose Level 171 MG/DL (74-106) H Uric Acid 7.4 MG/DL (2.6-7.2) H Calcium Level 8.3 MG/DL (8.5-10.1) L Phosphorus Level 4.2 MG/DL (2.5-4.9) Magnesium Level 1.7 MG/DL (1.8-2.4) L Total Bilirubin 0.4 MG/DL (0.2-1.0) Direct Bilirubin 0.1 MG/DL (0.0-0.3) Aspartate Amino Transf (AST/SGOT) 13 U/L (15-37) L Alanine Aminotransferase (ALT/SGPT) 7 U/L (12-78) L Alkaline Phosphatase 66 U/L (46-116) Total Protein 5.4 G/DL (6.4-8.2) L Albumin 1.9 G/DL (3.4-5.0) L Current Medications Medications (Trade) Dose Ordered Sig/Dunia Route PRN Reason Start Time Stop Time Status Last Admin Dose Admin Albuterol/ Ipratropium (Albuterol/ Ipratropium) 3 ml Q4H PRN HHN sob 07/31/18 09:15 08/05/18 09:14 Dextrose (Dextrose 50%) 25 ml Q30M PRN IV Hypoglycemia 08/01/18 07:30 08/31/18 07:29 Dextrose (Dextrose 50%) 50 ml Q30M PRN IV Hypoglycemia 08/01/18 07:30 08/31/18 07:29 Duloxetine HCl (Cymbalta) 30 mg DAILY ORAL 07/30/18 09:00 08/29/18 08:59 08/01/18 09:12 Heparin Sodium (Porcine) (Heparin 5000 units/ml) 5,000 units EVERY 12 HOURS SUBQ 07/29/18 09:00 08/28/18 08:59 08/01/18 09:19 Insulin Aspart (NovoLOG) BEFORE MEALS AND HS SUBQ 08/01/18 07:30 08/31/18 07:29 08/01/18 09:17 Insulin Aspart (NovoLOG) 5 units NOVOTIAC SUBQ 08/01/18 07:30 08/31/18 07:29 08/01/18 09:15 Insulin Detemir (Levemir) 12 units BID SUBQ 08/01/18 09:00 08/31/18 08:59 08/01/18 09:18 Meropenem 500 mg/ Sodium Chloride 55 ml @ 110 mls/hr Q24H IVPB 07/29/18 16:00 08/03/18 15:59 07/31/18 16:08 Pantoprazole (Protonix) 40 mg Q12HR IVP 07/29/18 21:00 08/28/18 08:59 08/01/18 09:12 Sevelamer Carbonate (Renvela) 800 mg THREE TIMES A DAY ORAL 07/29/18 13:00 08/28/18 12:59 08/01/18 09:12 Sodium Bicarbonate 100 ml/Dextrose 1,100 ml @ 75 mls/hr [id number] IV 07/30/18 10:00 08/29/18 09:59 08/01/18 05:45 Sodium Citrate (Bicitra) 30 ml EVERY 6 HOURS ORAL 07/29/18 12:00 08/28/18 11:59 08/01/18 05:44 Vitamin B Complex/ Vit C/Folic Acid (Nephrovite) 1 tab DAILY ORAL 07/30/18 09:00 08/29/18 08:59 08/01/18 09:12 Monique Read M.D. Aug 01, 2018 10:12
--- NOTE | 2018-08-01 10:33 | Pulmonolgy Critical Care Note ---
Critical Care - Asmt/Plan Problems: (1) DKA (diabetic ketoacidoses) (2) Encephalopathy acute (3) Acute on chronic renal failure (4) Suprapubic catheter (5) HTN (hypertension) (6) Major depressive disorder (7) BPH (benign prostatic hypertrophy) Respiratory: monitor respiratory rate, CXR Cardiac: continue to monitor HR/BP Renal: F/U I&O Infectious Disease: check cultures Gastrointestinal: continue feedings/current rate Endocrine: monitor blood sugar, d/c insulin drip, continue sliding scale insulin Hematologic: monitor H/H, transfuse if hgb<8.5 Neurologic: PRN Morphine, keep patient comfortable Affect: PRN ativan 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, 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, 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, 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 - Objective Last 24 Hour Vital Signs Date Time Temp Pulse Resp B/P (MAP) Pulse Ox O2 Delivery O2 Flow Rate FiO2 08/01/18 08:00 Room Air 08/01/18 08:00 98 08/01/18 08:00 98.3 98 19 185/98 99 Room Air 08/01/18 07:00 92 17 152/61 99 Room Air 08/01/18 06:00 82 20 160/60 100 Room Air 08/01/18 05:00 78 20 158/59 100 Room Air 08/01/18 04:00 Room Air 08/01/18 04:00 98.4 74 20 145/70 100 Room Air 08/01/18 04:00 86 08/01/18 03:00 74 17 170/68 100 Room Air 08/01/18 02:00 74 17 150/55 100 Room Air 08/01/18 01:00 80 18 156/67 100 Room Air 08/01/18 00:00 98.1 81 18 152/65 100 Room Air 08/01/18 00:00 90 08/01/18 00:00 Room Air 07/31/18 23:00 81 18 150/68 100 Room Air 07/31/18 22:00 80 18 146/55 100 Room Air 07/31/18 21:00 80 16 140/50 100 Room Air 07/31/18 20:00 Room Air 07/31/18 20:00 98.4 77 16 138/55 100 Room Air 07/31/18 20:00 77 07/31/18 18:00 98.6 73 16 100 Room Air 07/31/18 17:00 100 Room Air 07/31/18 16:00 79 16 100 Room Air 07/31/18 16:00 Room Air 07/31/18 16:00 74 07/31/18 15:00 82 11 98 Room Air 07/31/18 14:55 82 19 141/57 100 Room Air 07/31/18 14:00 81 18 118/60 100 Room Air 07/31/18 13:00 98.2 81 18 113/60 100 Room Air 07/31/18 12:00 87 07/31/18 12:00 83 18 113/60 100 Room Air 07/31/18 12:00 Room Air 07/31/18 11:00 82 18 127/53 100 Room Air Status: awake Condition: critical HEENT: atraumatic Lungs: clear Heart: HR/BP stable Abdomen: soft, active bowel sounds Extremities: no C/C/E Accucheck: 426 Critical Care - Subjective ROS Limited/Unobtainable: Yes Condition: critical EKG Rhythm: Sinus Rhythm I&O: Intake and Output 07/31/18 08/01/18 19:00 07:00 Intake Total 1256.64 ml 1231.0 ml Output Total 825 ml 1320 ml Balance 431.64 ml -89.0 ml Intake Oral 490 ml 400 ml IV Total 766.64 ml 831.0 ml Output Urine Total 825 ml 1320 ml # Bowel Movements 2 CXR: no change Labs: Laboratory Tests Test 08/01/18 04:30 White Blood Count 5.8 K/UL (4.8-10.8) Red Blood Count 2.65 M/UL (4.70-6.10) L Hemoglobin 8.3 G/DL (14.2-18.0) L Hematocrit 24.3 % (42.0-52.0) L Mean Corpuscular Volume 92 FL (80-99) Mean Corpuscular Hemoglobin 31.2 PG (27.0-31.0) H Mean Corpuscular Hemoglobin Concent 34.1 G/DL (32.0-36.0) Red Cell Distribution Width 13.5 % (11.6-14.8) Platelet Count 203 K/UL (150-450) Mean Platelet Volume 6.3 FL (6.5-10.1) L Neutrophils (%) (Auto) 63.6 % (45.0-75.0) Lymphocytes (%) (Auto) 22.4 % (20.0-45.0) Monocytes (%) (Auto) 7.9 % (1.0-10.0) Eosinophils (%) (Auto) 5.3 % (0.0-3.0) H Basophils (%) (Auto) 0.8 % (0.0-2.0) Sodium Level 146 MMOL/L (136-145) H Potassium Level 3.5 MMOL/L (3.5-5.1) Chloride Level 114 MMOL/L (98-107) H Carbon Dioxide Level 17 MMOL/L (21-32) L Anion Gap 15 mmol/L (5-15) Blood Urea Nitrogen 79 mg/dL (7-18) H Creatinine 6.5 MG/DL (0.55-1.30) H Estimat Glomerular Filtration Rate 8.7 mL/min (>60) Glucose Level 171 MG/DL (74-106) H Uric Acid 7.4 MG/DL (2.6-7.2) H Calcium Level 8.3 MG/DL (8.5-10.1) L Phosphorus Level 4.2 MG/DL (2.5-4.9) Magnesium Level 1.7 MG/DL (1.8-2.4) L Total Bilirubin 0.4 MG/DL (0.2-1.0) Direct Bilirubin 0.1 MG/DL (0.0-0.3) Aspartate Amino Transf (AST/SGOT) 13 U/L (15-37) L Alanine Aminotransferase (ALT/SGPT) 7 U/L (12-78) L Alkaline Phosphatase 66 U/L (46-116) Total Protein 5.4 G/DL (6.4-8.2) L Albumin 1.9 G/DL (3.4-5.0) L Esdras Delgado MD Aug 01, 2018 10:33
--- NOTE | 2018-08-01 11:10 | Nephrology Progress Note ---
Assessment/Plan Problem List: (1) Bladder outlet obstruction (2) Acute on chronic renal failure (3) Anemia in chronic kidney disease (4) BPH (benign prostatic hypertrophy) (5) DKA (diabetic ketoacidoses) (6) Encephalopathy acute Assessment ESRD , in need of dialysis , refuses- presents with high K Encephalopathy , Metabolic Acidosis , Uremic and Diabetic Sever Anemia: Mixed etiology HTn, but presents with low BP Supra Pubic Cath, h/o UTI, BPH Psych disease CAD, elevated Troponin I s/p DKAs Plan Hydrate- Transfuse Bicarbs Sugar control will do poorly in view of no dialysis plans DNR per orders Subjective ROS Limited/Unobtainable: No Constitutional: Reports: malaise Objective Objective Last 24 Hour Vital Signs Date Time Temp Pulse Resp B/P (MAP) Pulse Ox O2 Delivery O2 Flow Rate FiO2 08/01/18 08:00 Room Air 08/01/18 08:00 98 08/01/18 08:00 98.3 98 19 185/98 99 Room Air 08/01/18 07:00 92 17 152/61 99 Room Air 08/01/18 06:00 82 20 160/60 100 Room Air 08/01/18 05:00 78 20 158/59 100 Room Air 08/01/18 04:00 Room Air 08/01/18 04:00 98.4 74 20 145/70 100 Room Air 08/01/18 04:00 86 08/01/18 03:00 74 17 170/68 100 Room Air 08/01/18 02:00 74 17 150/55 100 Room Air 08/01/18 01:00 80 18 156/67 100 Room Air 08/01/18 00:00 98.1 81 18 152/65 100 Room Air 08/01/18 00:00 90 08/01/18 00:00 Room Air 07/31/18 23:00 81 18 150/68 100 Room Air 07/31/18 22:00 80 18 146/55 100 Room Air 07/31/18 21:00 80 16 140/50 100 Room Air 07/31/18 20:00 Room Air 07/31/18 20:00 98.4 77 16 138/55 100 Room Air 07/31/18 20:00 77 07/31/18 18:00 98.6 73 16 100 Room Air 07/31/18 17:00 100 Room Air 07/31/18 16:00 79 16 100 Room Air 07/31/18 16:00 Room Air 07/31/18 16:00 74 07/31/18 15:00 82 11 98 Room Air 07/31/18 14:55 82 19 141/57 100 Room Air 07/31/18 14:00 81 18 118/60 100 Room Air 07/31/18 13:00 98.2 81 18 113/60 100 Room Air 07/31/18 12:00 87 07/31/18 12:00 83 18 113/60 100 Room Air 07/31/18 12:00 Room Air Intake and Output 07/31/18 08/01/18 19:00 07:00 Intake Total 1256.64 ml 1231.0 ml Output Total 825 ml 1320 ml Balance 431.64 ml -89.0 ml Intake Oral 490 ml 400 ml IV Total 766.64 ml 831.0 ml Output Urine Total 825 ml 1320 ml # Bowel Movements 2 Laboratory Tests 08/01/18 04:30: White Blood Count 5.8, Red Blood Count 2.65L, Hemoglobin 8.3L, Hematocrit 24.3L , Mean Corpuscular Volume 92, Mean Corpuscular Hemoglobin 31.2H, Mean Corpuscular Hemoglobin Concent 34.1, Red Cell Distribution Width 13.5, Platelet Count 203, Mean Platelet Volume 6.3L, Neutrophils (%) (Auto) 63.6, Lymphocytes ( %) (Auto) 22.4, Monocytes (%) (Auto) 7.9, Eosinophils (%) (Auto) 5.3H, Basophils (%) (Auto) 0.8, Sodium Level 146H, Potassium Level 3.5, Chloride Level 114H, Carbon Dioxide Level 17L, Anion Gap 15, Blood Urea Nitrogen 79H, Creatinine 6.5H, Estimat Glomerular Filtration Rate 8.7, Glucose Level 171H, Uric Acid 7.4H, Calcium Level 8.3L, Phosphorus Level 4.2, Magnesium Level 1.7L, Total Bilirubin 0.4, Direct Bilirubin 0.1, Aspartate Amino Transf (AST/SGOT) 13L , Alanine Aminotransferase (ALT/SGPT) 7L, Alkaline Phosphatase 66, Total Protein 5.4L, Albumin 1.9L Height (Feet): 6 Height (Inches): 0.00 Weight (Pounds): 155 General Appearance: no apparent distress Cardiovascular: normal rate Respiratory/Chest: decreased breath sounds Abdomen: soft Luis Chambers MD Aug 01, 2018 11:10
--- NOTE | 2018-08-01 11:30 | NUR ---
NURSE NOTES: Transfer report given to Timothy RIVERA and patient transferred to SDU room 43 bed 2 in bed. Verbally, patient is able to respond with care and able to follows simple command. No behavior noted. Calm jose cooperative.
--- NOTE | 2018-08-01 11:31 | NUR ---
NURSE NOTES: RECEIVED PATIENT FROM ICU, REPORT GIVEN BY NICOLE HARPER. PATIENT IS AWAKE, ALERT AND RESPONSIVE. HOOKED TO [employer]. ON ROOM AIR. DENIES ANY PAIN OF THE MOMENT. NOTED SUPRAPUBIC CATHETER CONNECTED TO BAG, PATENT AND DRAINING URINE. IV ON R AC G20 AND L UA G 22 WITH IVF RUNNING D5 W + 1AMP NAHCO3 AT 75CC/HR. NOTED LEFT AV SHUNT NO THRILL OR BRUIT. NOTED SWOLLEN L ARM. CALL LIGHT WITHIN REACH. BED AT LOWEST POSITION. SIDE RAILS UP. WILL CONTINUE TO MONITOR.
[2018-08-01] MEDS ORDERED: Albuterol/Ipratropium 3ml neb HHN PRN (13:15)
--- NOTE | 2018-08-01 13:58 | Diagnostic Imaging Report ---
Indication: Shortness of breath Technique: XRAY Chest 1v Comparison: 07/31/2018 Findings: Low lung volumes. Heart size and mediastinal contours are stable. There is development of a opacity in the peripheral right base which may artifactual and related to confluence of vascular and osseous shadows however developing infiltrate is not excluded. Attention on follow-up recommended. No pleural effusion or pneumothorax. Osseous structures stable. IMPRESSION: Portable development of an opacity at the peripheral right base which may represent developing infiltrate versus artifact from confluence of vascular and osseous disease. Attention on follow-up recommended.
--- NOTE | 2018-08-01 15:24 | Internal Med Progress Note ---
Subjective Date of Service: Aug 01, 2018 Physician Name Jose Glasgow Attending Physician Christopher Rosado MD Current Medications Medications (Trade) Dose Ordered Sig/Dunia Route PRN Reason Start Time Stop Time Status Last Admin Dose Admin Albuterol/ Ipratropium (Albuterol/ Ipratropium) 3 ml Q4H PRN HHN sob 08/01/18 13:15 08/05/18 09:14 Dextrose (Dextrose 50%) 25 ml Q30M PRN IV Hypoglycemia 08/01/18 12:00 08/31/18 07:29 Dextrose (Dextrose 50%) 50 ml Q30M PRN IV Hypoglycemia 08/01/18 12:00 08/31/18 07:29 Duloxetine HCl (Cymbalta) 30 mg DAILY ORAL 08/02/18 09:00 08/29/18 08:59 Heparin Sodium (Porcine) (Heparin 5000 units/ml) 5,000 units EVERY 12 HOURS SUBQ 08/01/18 21:00 08/28/18 08:59 Insulin Aspart (NovoLOG) BEFORE MEALS AND HS SUBQ 08/01/18 16:30 08/31/18 07:29 Insulin Aspart (NovoLOG) 5 units NOVOTIAC SUBQ 08/01/18 16:50 08/31/18 07:29 Insulin Detemir (Levemir) 12 units BID SUBQ 08/01/18 18:00 08/31/18 08:59 Meropenem 500 mg/ Sodium Chloride 55 ml @ 110 mls/hr Q24H IVPB 08/01/18 16:00 08/03/18 15:59 Pantoprazole (Protonix) 40 mg EVERY 12 HOURS ORAL 08/01/18 21:00 08/31/18 20:59 Sevelamer Carbonate (Renvela) 800 mg THREE TIMES A DAY ORAL 08/01/18 13:00 08/28/18 12:59 08/01/18 13:13 Sodium Bicarbonate 100 ml/Dextrose 1,100 ml @ 75 mls/hr [id number] IV 08/01/18 15:00 08/29/18 14:59 Sodium Citrate (Bicitra) 30 ml EVERY 6 HOURS ORAL 08/01/18 12:00 08/28/18 11:59 08/01/18 13:13 Vitamin B Complex/ Vit C/Folic Acid (Nephrovite) 1 tab DAILY ORAL 08/02/18 09:00 08/29/18 08:59 Allergies: Coded Allergies: CEFEPIME (Verified Allergy, Intermediate, Rash, 03/01/18) Tolerates Carbapenem ROS Limited/Unobtainable: Yes Subjective 63 YO M with history of diabetes I admitted with hyperglycemia and DKA. Cover for Int Med-Dr Rosado. CECILE. Continues off Insulin drip Objective Last Vital Signs Date Time Temp Pulse Resp B/P (MAP) Pulse Ox O2 Delivery O2 Flow Rate FiO2 08/01/18 12:00 98.2 74 19 122/57 99 Room Air Laboratory Tests Test 08/01/18 04:30 White Blood Count 5.8 K/UL (4.8-10.8) Red Blood Count 2.65 M/UL (4.70-6.10) L Hemoglobin 8.3 G/DL (14.2-18.0) L Hematocrit 24.3 % (42.0-52.0) L Mean Corpuscular Volume 92 FL (80-99) Mean Corpuscular Hemoglobin 31.2 PG (27.0-31.0) H Mean Corpuscular Hemoglobin Concent 34.1 G/DL (32.0-36.0) Red Cell Distribution Width 13.5 % (11.6-14.8) Platelet Count 203 K/UL (150-450) Mean Platelet Volume 6.3 FL (6.5-10.1) L Neutrophils (%) (Auto) 63.6 % (45.0-75.0) Lymphocytes (%) (Auto) 22.4 % (20.0-45.0) Monocytes (%) (Auto) 7.9 % (1.0-10.0) Eosinophils (%) (Auto) 5.3 % (0.0-3.0) H Basophils (%) (Auto) 0.8 % (0.0-2.0) Sodium Level 146 MMOL/L (136-145) H Potassium Level 3.5 MMOL/L (3.5-5.1) Chloride Level 114 MMOL/L (98-107) H Carbon Dioxide Level 17 MMOL/L (21-32) L Anion Gap 15 mmol/L (5-15) Blood Urea Nitrogen 79 mg/dL (7-18) H Creatinine 6.5 MG/DL (0.55-1.30) H Estimat Glomerular Filtration Rate 8.7 mL/min (>60) Glucose Level 171 MG/DL (74-106) H Uric Acid 7.4 MG/DL (2.6-7.2) H Calcium Level 8.3 MG/DL (8.5-10.1) L Phosphorus Level 4.2 MG/DL (2.5-4.9) Magnesium Level 1.7 MG/DL (1.8-2.4) L Total Bilirubin 0.4 MG/DL (0.2-1.0) Direct Bilirubin 0.1 MG/DL (0.0-0.3) Aspartate Amino Transf (AST/SGOT) 13 U/L (15-37) L Alanine Aminotransferase (ALT/SGPT) 7 U/L (12-78) L Alkaline Phosphatase 66 U/L (46-116) Total Protein 5.4 G/DL (6.4-8.2) L Albumin 1.9 G/DL (3.4-5.0) L Intake and Output 07/31/18 08/01/18 19:00 07:00 Intake Total 1256.64 ml 1306.0 ml Output Total 825 ml 1320 ml Balance 431.64 ml -14.0 ml Intake Oral 490 ml 400 ml IV Total 766.64 ml 906.0 ml Output Urine Total 825 ml 1320 ml # Bowel Movements 2 Objective GENERAL: The patient is awake and responsive but confused, in no acute distress. HEAD AND NECK: Pupils are equal and reactive to light. Extraocular movements are intact in the right eye. Left eye blindness, Neck was supple. No JVD. LUNGS: fair air entry. No wheezing or rales. HEART: S1 and S2. Distant heart sounds. No Murmur or gallops. ABDOMEN: Soft, nontender, and nontender. Suprapubic catheter was noted. EXTREMITIES: No cyanosis or clubbing. Bilateral lower extremity trace LE's edema. NEUROLOGIC: Cranial nerves II through XII grossly intact. Motor is 5/5 in all extremities. Gait was not assessed due to the patient's status. Assessment/Plan Assessment/Plan ASSESSMENT: 1. DKA. 2. Hypertension. 3. Dyslipidemia. 4. Diabetes type 1 with prior history of diabetic ketoacidosis. 5. Diabetic retinopathy of the left eye blindness. 6. End-stage renal disease secondary to diabetic nephrosclerosis. 7. Coronary artery disease with prior history of myocardial infarction. 8. 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 9. 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 10. Secondary hyperparathyroidism with vitamin D deficiency. 11. Anemia of chronic kidney disease. 12. Metabolic acidosis. 13. Depression with prior suicide attempt. 14. Acute encephalopathy due to toxic metabolic encephalopathy due to DKA. PLAN: 1. ICU status 2. Code status is DNR/DNI as per POLST in the chart. 3. Resume custodial medications. 4. Follow up with Labs and culture. 5. Broad spectrum antibiotic with Meropenem. 6. DVT prophylaxis, heparin subcutaneous. 7. We will follow up with Dr. Delgado with critical care , Dr. Chambers from Nephrology and Dr. Rich Wick from Infectious Disease. 8. We will follow up with the cultures and laboratory in the morning. 9. Levemir and Insulin sliding scale per endocrinology Jose Glasgow MD Aug 01, 2018 15:24
--- NOTE | 2018-08-01 15:30 | NUR ---
NURSE NOTES: NOTED PATIENT PULLED OUT IVS. FOR REINSERTION. FOR VENOUS DUPLEX UPPER EXTREMITIES TO R/O DVT. WILL CONTINUE TO MONITOR.
[2018-08-01] MEDS: Meropenem 500 MG in NS 55 ML IVPB SCH (16:35)
[2018-08-01] MEDS: Levemir Flexpen SUBQ SCH (17:59)
[2018-08-01] MEDS: Magnesium Oxide 400mg tab ORAL SCH (17:59)
--- NOTE | 2018-08-01 19:18 | NUR ---
HAND-OFF: Report given to Sohan Nj RN.
--- NOTE | 2018-08-01 19:30 | NUR ---
NURSE NOTES: Received Pt is resting on the bed and awake and confused. IV site intact and no sign of infiltration noted. No sign of hypo/hyperglycemia reaction. On RA with SaO2 08% noted. On suprapubic cath and patent. Still noted Swelling on Lt. arm area. Placed fall precaution. Will continue to care plan. Addendum: 08/01/18 at 2236 by RICARDO ODELL RN RN SaO2 98%
--- NOTE | 2018-08-01 21:27 | General Progress Note ---
Assessment/Plan Problem List: (1) encephalopathy due to metabolic do (2) Major depressive disorder ICD Codes: F32.9 - Major depressive disorder, single episode, unspecified SNOMED: 204680784 Assessment/Plan cont Cymbalta 30mg qam seroquel 25mg q6hr prn agitation provided ro/st Subjective Neurologic/Psychiatric: Reports: anxiety, depressed, emotional problems Allergies: Coded Allergies: CEFEPIME (Verified Allergy, Intermediate, Rash, 03/01/18) Tolerates Carbapenem Subjective the pt pulled out his iv Objective Last 24 Hour Vital Signs Date Time Temp Pulse Resp B/P (MAP) Pulse Ox O2 Delivery O2 Flow Rate FiO2 08/01/18 20:00 97.7 70 18 119/68 98 Room Air 08/01/18 20:00 72 08/01/18 16:00 97.7 69 20 129/54 98 Room Air 08/01/18 16:00 Room Air 08/01/18 16:00 74 08/01/18 12:00 98.2 74 19 122/57 99 Room Air 08/01/18 12:00 Room Air 08/01/18 12:00 75 08/01/18 11:00 78 13 168/66 100 Room Air 08/01/18 10:00 79 21 157/56 100 Room Air 08/01/18 09:00 84 20 176/75 100 Room Air 08/01/18 08:00 Room Air 08/01/18 08:00 98 08/01/18 08:00 98.3 98 19 185/98 99 Room Air 08/01/18 07:00 92 17 152/61 99 Room Air 08/01/18 06:00 82 20 160/60 100 Room Air 08/01/18 05:00 78 20 158/59 100 Room Air 08/01/18 04:00 Room Air 08/01/18 04:00 98.4 74 20 145/70 100 Room Air 08/01/18 04:00 86 08/01/18 03:00 74 17 170/68 100 Room Air 08/01/18 02:00 74 17 150/55 100 Room Air 08/01/18 01:00 80 18 156/67 100 Room Air 08/01/18 00:00 98.1 81 18 152/65 100 Room Air 08/01/18 00:00 90 08/01/18 00:00 Room Air 07/31/18 23:00 81 18 150/68 100 Room Air 07/31/18 22:00 80 18 146/55 100 Room Air Intake and Output 07/31/18 08/01/18 19:00 07:00 Intake Total 1256.64 ml 1306.0 ml Output Total 825 ml 1320 ml Balance 431.64 ml -14.0 ml Intake Oral 490 ml 400 ml IV Total 766.64 ml 906.0 ml Output Urine Total 825 ml 1320 ml # Bowel Movements 2 Laboratory Tests 08/01/18 04:00: Arterial Blood pH 7.420, Arterial Blood Partial Pressure CO2 35.4, Arterial Blood Partial Pressure O2 77.2, Arterial Blood HCO3 22.4, Arterial Blood Oxygen Saturation 94.4L, Arterial Blood Base Excess -1.8, Mikael Test Positive 08/01/18 04:30: White Blood Count 5.8, Red Blood Count 2.65L, Hemoglobin 8.3L, Hematocrit 24.3L , Mean Corpuscular Volume 92, Mean Corpuscular Hemoglobin 31.2H, Mean Corpuscular Hemoglobin Concent 34.1, Red Cell Distribution Width 13.5, Platelet Count 203, Mean Platelet Volume 6.3L, Neutrophils (%) (Auto) 63.6, Lymphocytes ( %) (Auto) 22.4, Monocytes (%) (Auto) 7.9, Eosinophils (%) (Auto) 5.3H, Basophils (%) (Auto) 0.8, Sodium Level 146H, Potassium Level 3.5, Chloride Level 114H, Carbon Dioxide Level 17L, Anion Gap 15, Blood Urea Nitrogen 79H, Creatinine 6.5H, Estimat Glomerular Filtration Rate 8.7, Glucose Level 171H, Uric Acid 7.4H, Calcium Level 8.3L, Phosphorus Level 4.2, Magnesium Level 1.7L, Total Bilirubin 0.4, Direct Bilirubin 0.1, Aspartate Amino Transf (AST/SGOT) 13L , Alanine Aminotransferase (ALT/SGPT) 7L, Alkaline Phosphatase 66, Total Protein 5.4L, Albumin 1.9L Height (Feet): 6 Height (Inches): 0.00 Weight (Pounds): 155 General Appearance: alert, agitated Fatmata Lu MD Aug 01, 2018 21:27
[2018-08-02] VITALS: BP 126/64
--- NOTE | 2018-08-02 04:00 | NUR ---
NURSE NOTES: Pt refused to check V/S. Explained benefits and risks.
[2018-08-02] MEDS: Sodium Citrate 30ml ORAL SCH ×4 (06:00→18:00)
[2018-08-02] MEDS: Sodium Bicarbonate 100 ML in D5W 1000ml 1,000 ML IV SCH (06:06)
[2018-08-02 06:09] LABS: HEMATOCRIT 23.1 % (42.0-52.0); HEMOGLOBIN 7.8 G/DL (14.2-18.0); MEAN CORPUSCULAR VOLUME 91 FL (80-99); PLATELET COUNT 207 K/UL (150-450); RED BLOOD COUNT 2.55 M/UL (4.70-6.10); RED CELL DISTRIBUTION WIDTH 13.4 % (11.6-14.8)
[2018-08-02] MEDS: NovoLOG Insulin Flexpen SUBQ SCH ×7 (06:30→21:00)
--- NOTE | 2018-08-02 06:30 | NUR ---
NURSE NOTES: Pt is resting on the bed and confused. Pt is combative and strongly refused to take medication and checked blood sugar. Explained benefits and risks several times but still strongly refused.
[2018-08-02 06:50] LABS: ALANINE AMINOTRANSFERASE 7 U/L (12-78); ALBUMIN 1.8 G/DL (3.4-5.0); ALBUMIN/GLOBULIN RATIO 0.5 (1.0-2.7); ALKALINE PHOSPHATASE 66 U/L (46-116); ANION GAP 11 mmol/L (5-15); ASPARTATE AMINO TRANSFERASE 12 U/L (15-37); BILIRUBIN,TOTAL 0.4 MG/DL (0.2-1.0); BLOOD UREA NITROGEN 68 mg/dL (7-18); CALCIUM 8.2 MG/DL (8.5-10.1); CARBON DIOXIDE 23 MMOL/L (21-32); CHLORIDE 109 MMOL/L (98-107); CREATININE 5.7 MG/DL (0.55-1.30); POTASSIUM 3.2 MMOL/L (3.5-5.1); SODIUM 143 MMOL/L (136-145)
--- NOTE | 2018-08-02 06:51 | General Progress Note ---
Assessment/Plan Problem List: (1) DKA (diabetic ketoacidoses) ICD Codes: E13.10 - DKA (diabetic ketoacidoses) SNOMED: 03412887 Qualifiers: Qualified Codes: E10.10 - Type 1 diabetes mellitus with ketoacidosis without coma (2) CKD (chronic kidney disease), stage III ICD Codes: N18.3 - CKD (chronic kidney disease), stage III SNOMED: 767518745 (3) encephalopathy due to metabolic do (4) Pulmonary HTN ICD Codes: I27.0 - Pulmonary HTN SNOMED: 05610727 Assessment/Plan continue Levemir 12 units bid continue Novolog 5 units ac tid NISS ac / hs Subjective ROS Limited/Unobtainable: Yes Allergies: Coded Allergies: CEFEPIME (Verified Allergy, Intermediate, Rash, 03/01/18) Tolerates Carbapenem Subjective events noted - transferred out of ICU Objective Last 24 Hour Vital Signs Date Time Temp Pulse Resp B/P (MAP) Pulse Ox O2 Delivery O2 Flow Rate FiO2 08/02/18 04:00 73 08/02/18 04:00 Room Air 08/02/18 00:00 97.5 71 18 126/64 99 Room Air 08/02/18 00:00 69 08/02/18 00:00 Room Air 08/01/18 20:00 97.7 70 18 119/68 98 Room Air 08/01/18 20:00 Room Air 08/01/18 20:00 72 08/01/18 16:00 97.7 69 20 129/54 98 Room Air 08/01/18 16:00 Room Air 08/01/18 16:00 74 08/01/18 12:00 98.2 74 19 122/57 99 Room Air 08/01/18 12:00 Room Air 08/01/18 12:00 75 08/01/18 11:00 78 13 168/66 100 Room Air 08/01/18 10:00 79 21 157/56 100 Room Air 08/01/18 09:00 84 20 176/75 100 Room Air 08/01/18 08:00 Room Air 08/01/18 08:00 98 08/01/18 08:00 98.3 98 19 185/98 99 Room Air 08/01/18 07:00 92 17 152/61 99 Room Air Intake and Output 08/01/18 08/02/18 19:00 07:00 Intake Total 1672.5 ml 810 ml Output Total 380 ml 1600 ml Balance 1292.5 ml -790 ml Intake Oral 1000 ml 60 ml IV Total 672.5 ml 750 ml Output Urine Total 380 ml 1600 ml Laboratory Tests 08/02/18 03:30: White Blood Count 5.0, Red Blood Count 2.55L, Hemoglobin 7.8L, Hematocrit 23.1L , Mean Corpuscular Volume 91, Mean Corpuscular Hemoglobin 30.6, Mean Corpuscular Hemoglobin Concent 33.8, Red Cell Distribution Width 13.4, Platelet Count 207, Mean Platelet Volume 7.0, Neutrophils (%) (Auto) , Lymphocytes (%) ( Auto) , Monocytes (%) (Auto) , Eosinophils (%) (Auto) , Basophils (%) (Auto) , Sodium Level [Pending], Potassium Level [Pending], Chloride Level [Pending], Carbon Dioxide Level [Pending], Blood Urea Nitrogen [Pending], Creatinine [ Pending], Estimat Glomerular Filtration Rate [Pending], Glucose Level [Pending] , Calcium Level [Pending], Phosphorus Level [Pending], Magnesium Level [Pending] , Total Bilirubin [Pending], Aspartate Amino Transf (AST/SGOT) [Pending], Alanine Aminotransferase (ALT/SGPT) [Pending], Alkaline Phosphatase [Pending], Total Protein [Pending], Albumin [Pending], Globulin [Pending] Height (Feet): 6 Height (Inches): 0.00 Weight (Pounds): 153 General Appearance: no apparent distress Neck: normal alignment Cardiovascular: tachycardia Respiratory/Chest: decreased breath sounds Abdomen: normal bowel sounds Edema: 2+ Arm (L), 2+ Arm (R), 2+ Leg (L), 2+ Leg (R), 2+ Pedal (L), 2+ Pedal ( R), 2+ Generalized Objective Current Medications Medications (Trade) Dose Ordered Sig/Dunia Route PRN Reason Start Time Stop Time Status Last Admin Dose Admin Albuterol/ Ipratropium (Albuterol/ Ipratropium) 3 ml Q4H PRN HHN sob 08/01/18 13:15 08/05/18 09:14 Dextrose (Dextrose 50%) 25 ml Q30M PRN IV Hypoglycemia 08/01/18 12:00 08/31/18 07:29 Dextrose (Dextrose 50%) 50 ml Q30M PRN IV Hypoglycemia 08/01/18 12:00 08/31/18 07:29 Duloxetine HCl (Cymbalta) 30 mg DAILY ORAL 08/02/18 09:00 08/29/18 08:59 Heparin Sodium (Porcine) (Heparin 5000 units/ml) 5,000 units EVERY 12 HOURS SUBQ 08/01/18 21:00 08/28/18 08:59 08/01/18 21:03 Insulin Aspart (NovoLOG) BEFORE MEALS AND HS SUBQ 08/01/18 16:30 08/31/18 07:29 Insulin Aspart (NovoLOG) 5 units NOVOTIAC SUBQ 08/01/18 16:50 08/31/18 07:29 Insulin Detemir (Levemir) 12 units BID SUBQ 08/01/18 18:00 08/31/18 08:59 Magnesium Oxide (Mag-Ox 400mg) 400 mg THREE TIMES A DAY ORAL 08/01/18 18:00 08/31/18 17:59 08/01/18 17:59 Meropenem 500 mg/ Sodium Chloride 55 ml @ 110 mls/hr Q24H IVPB 08/01/18 16:00 08/03/18 15:59 08/01/18 16:35 Pantoprazole (Protonix) 40 mg EVERY 12 HOURS ORAL 08/01/18 21:00 08/31/18 20:59 08/01/18 21:01 Quetiapine Fumarate (SEROquel) 25 mg Q6H PRN ORAL For Anxiety 08/01/18 21:30 08/31/18 21:29 Sevelamer Carbonate (Renvela) 800 mg THREE TIMES A DAY ORAL 08/01/18 13:00 08/28/18 12:59 08/01/18 17:59 Sodium Bicarbonate 100 ml/Dextrose 1,100 ml @ 75 mls/hr [id number] IV 08/01/18 15:00 08/29/18 14:59 08/02/18 06:06 Sodium Citrate (Bicitra) 30 ml EVERY 6 HOURS ORAL 08/01/18 12:00 08/28/18 11:59 08/01/18 23:53 Vitamin B Complex/ Vit C/Folic Acid (Nephrovite) 1 tab DAILY ORAL 08/02/18 09:00 08/29/18 08:59 Item Value Date Time Bedside Blood Glucose 86 mg/dl 08/01/18 2100 Bedside Blood Glucose 50 mg/dl L 08/01/18 1759 Bedside Blood Glucose 375 mg/dl H 08/01/18 1200 Bedside Blood Glucose 426 mg/dl H 08/01/18 0918 Bedside Blood Glucose 186 mg/dl H 08/01/18 0400 Bedside Blood Glucose 199 mg/dl H 08/01/18 0205 [place] Jacques MD Aug 02, 2018 06:51
--- NOTE | 2018-08-02 07:20 | NUR ---
HAND-OFF: Report given to NICOLE Mo. Pt is sleeping on the bed and combative and shouting. Pt still refused any treatment.
--- NOTE | 2018-08-02 07:21 | NUR ---
NURSE NOTES: Received patient in bed. Bed in lowest position. Will continue plan of care.
[2018-08-02] MEDS: Magnesium Oxide 400mg tab ORAL SCH ×4 (09:00→18:00)
[2018-08-02] MEDS ORDERED: Nephrovite tab (Rena-Vite) ORAL SCH (09:00)
[2018-08-02] MEDS ORDERED: DULoxetine 30mg cap ORAL SCH (09:00)
[2018-08-02] MEDS: Heparin 5000 units/ml inj SUBQ SCH ×2 (09:50→21:17)
[2018-08-02] MEDS: Levemir Flexpen SUBQ SCH ×2 (09:51→18:00)
--- NOTE | 2018-08-02 10:00 | NUR ---
NURSE NOTES: Dr. Delgado in the unit. Informed regarding patient's hgb level today. said that he will check patient and will start patient on epogen.
--- NOTE | 2018-08-02 10:21 | Pulmonology Progress Note ---
Assessment/Plan Problems: (1) Encephalopathy acute (2) DKA (diabetic ketoacidoses) (3) Anemia in chronic kidney disease (4) CKD (chronic kidney disease), stage III (5) Major depressive disorder (6) Bladder outlet obstruction (7) Suprapubic catheter Assessment/Plan Bs better controlled Acidosis improving Add epogen for anemia pt refusing HD check electrolytes continue DNR dvt prophylaxis Subjective ROS Limited/Unobtainable: No Interval Events: comfortable Allergies: Coded Allergies: CEFEPIME (Verified Allergy, Intermediate, Rash, 03/01/18) Tolerates Carbapenem Objective Last 24 Hour Vital Signs Date Time Temp Pulse Resp B/P (MAP) Pulse Ox O2 Delivery O2 Flow Rate FiO2 08/02/18 08:00 Room Air 08/02/18 07:14 77 08/02/18 04:00 73 08/02/18 04:00 Room Air 08/02/18 00:00 97.5 71 18 126/64 99 Room Air 08/02/18 00:00 69 08/02/18 00:00 Room Air 08/01/18 20:00 97.7 70 18 119/68 98 Room Air 08/01/18 20:00 Room Air 08/01/18 20:00 72 08/01/18 16:00 97.7 69 20 129/54 98 Room Air 08/01/18 16:00 Room Air 08/01/18 16:00 74 08/01/18 12:00 98.2 74 19 122/57 99 Room Air 08/01/18 12:00 Room Air 08/01/18 12:00 75 08/01/18 11:00 78 13 168/66 100 Room Air Intake and Output 08/01/18 08/02/18 19:00 07:00 Intake Total 1672.5 ml 880 ml Output Total 380 ml 1600 ml Balance 1292.5 ml -720 ml Intake Oral 1000 ml 60 ml IV Total 672.5 ml 820 ml Output Urine Total 380 ml 1600 ml General Appearance: WD/WN HEENT: normocephalic Respiratory/Chest: chest wall non-tender, lungs clear Cardiovascular: normal peripheral pulses, normal rate Abdomen: normal bowel sounds, soft, non tender, no scars Extremities: no clubbing Skin: no rash Neurologic/Psychiatric: health assistant II-XII grossly normal Lymphatic: no neck adenopathy Laboratory Tests 08/02/18 03:30: White Blood Count 5.0, Red Blood Count 2.55L, Hemoglobin 7.8L, Hematocrit 23.1L , Mean Corpuscular Volume 91, Mean Corpuscular Hemoglobin 30.6, Mean Corpuscular Hemoglobin Concent 33.8, Red Cell Distribution Width 13.4, Platelet Count 207, Mean Platelet Volume 7.0, Neutrophils (%) (Auto) , Lymphocytes (%) ( Auto) , Monocytes (%) (Auto) , Eosinophils (%) (Auto) , Basophils (%) (Auto) , Sodium Level 143, Potassium Level 3.2L, Chloride Level 109H, Carbon Dioxide Level 23, Anion Gap 11, Blood Urea Nitrogen 68H, Creatinine 5.7H, Estimat Glomerular Filtration Rate 10.1, Glucose Level 70#L, Calcium Level 8.2L, Phosphorus Level 4.0, Magnesium Level 1.5L, Total Bilirubin 0.4, Aspartate Amino Transf (AST/SGOT) 12L, Alanine Aminotransferase (ALT/SGPT) 7L, Alkaline Phosphatase 66, Total Protein 5.2L, Albumin 1.8L, Globulin 3.4, Albumin/ Globulin Ratio 0.5L Current Medications Medications (Trade) Dose Ordered Sig/Dunia Route PRN Reason Start Time Stop Time Status Last Admin Dose Admin Albuterol/ Ipratropium (Albuterol/ Ipratropium) 3 ml Q4H PRN HHN sob 08/01/18 13:15 08/05/18 09:14 Dextrose (Dextrose 50%) 25 ml Q30M PRN IV Hypoglycemia 08/01/18 12:00 08/31/18 07:29 Dextrose (Dextrose 50%) 50 ml Q30M PRN IV Hypoglycemia 08/01/18 12:00 08/31/18 07:29 Duloxetine HCl (Cymbalta) 30 mg DAILY ORAL 08/02/18 09:00 08/29/18 08:59 08/02/18 09:48 Heparin Sodium (Porcine) (Heparin 5000 units/ml) 5,000 units EVERY 12 HOURS SUBQ 08/01/18 21:00 08/28/18 08:59 08/02/18 09:50 Insulin Aspart (NovoLOG) BEFORE MEALS AND HS SUBQ 08/01/18 16:30 08/31/18 07:29 Insulin Aspart (NovoLOG) 5 units NOVOTIAC SUBQ 08/01/18 16:50 08/31/18 07:29 Insulin Detemir (Levemir) 12 units BID SUBQ 08/01/18 18:00 08/31/18 08:59 08/02/18 09:51 Magnesium Oxide (Mag-Ox 400mg) 400 mg THREE TIMES A DAY ORAL 08/02/18 09:30 09/01/18 09:29 08/02/18 09:48 Meropenem 500 mg/ Sodium Chloride 55 ml @ 110 mls/hr Q24H IVPB 08/01/18 16:00 08/03/18 15:59 08/01/18 16:35 Pantoprazole (Protonix) 40 mg EVERY 12 HOURS ORAL 08/01/18 21:00 08/31/18 20:59 08/02/18 09:48 Potassium Chloride (K-Dur) 20 meq ONCE ORAL 08/02/18 10:00 08/02/18 11:00 08/02/18 09:56 Quetiapine Fumarate (SEROquel) 25 mg Q6H PRN ORAL For Anxiety 08/01/18 21:30 08/31/18 21:29 Sevelamer Carbonate (Renvela) 800 mg THREE TIMES A DAY ORAL 08/01/18 13:00 08/28/18 12:59 08/02/18 09:48 Sodium Citrate (Bicitra) 30 ml EVERY 6 HOURS ORAL 08/01/18 12:00 08/28/18 11:59 08/01/18 23:53 Vitamin B Complex/ Vit C/Folic Acid (Nephrovite) 1 tab DAILY ORAL 08/02/18 09:00 08/29/18 08:59 08/02/18 09:48 Esdras Delgado MD Aug 02, 2018 10:21
--- NOTE | 2018-08-02 10:24 | Urology Progress Note ---
Assessment/Plan Assessment/Plan 1. Urinary retention. 2. Neurogenic bladder. 3. History of chronic suprapubic tube. 4. BPH history. 5. History of end-stage renal disease. 6. Hematuria. 7. Pyuria. 8. Proteinuria. 9. Renal cysts. monitor clinically keep sp tube, last placed 08/01 abx as ordered f/u on blood cx Subjective Allergies: Coded Allergies: CEFEPIME (Verified Allergy, Intermediate, Rash, 03/01/18) Tolerates Carbapenem Subjective all noted, new sp tube draining well Objective Last 24 Hour Vital Signs Date Time Temp Pulse Resp B/P (MAP) Pulse Ox O2 Delivery O2 Flow Rate FiO2 08/02/18 08:00 Room Air 08/02/18 07:14 77 08/02/18 04:00 73 08/02/18 04:00 Room Air 08/02/18 00:00 97.5 71 18 126/64 99 Room Air 08/02/18 00:00 69 08/02/18 00:00 Room Air 08/01/18 20:00 97.7 70 18 119/68 98 Room Air 08/01/18 20:00 Room Air 08/01/18 20:00 72 08/01/18 16:00 97.7 69 20 129/54 98 Room Air 08/01/18 16:00 Room Air 08/01/18 16:00 74 08/01/18 12:00 98.2 74 19 122/57 99 Room Air 08/01/18 12:00 Room Air 08/01/18 12:00 75 08/01/18 11:00 78 13 168/66 100 Room Air Intake and Output 08/01/18 08/02/18 19:00 07:00 Intake Total 1672.5 ml 880 ml Output Total 380 ml 1600 ml Balance 1292.5 ml -720 ml Intake Oral 1000 ml 60 ml IV Total 672.5 ml 820 ml Output Urine Total 380 ml 1600 ml Microbiology Date/Time Source Procedure Growth Status 07/29/18 05:29 Blood Blood Culture - Preliminary NO GROWTH AFTER 72 HOURS Resulted 07/29/18 00:30 Nasal Nares MRSA Culture - Final Staphylococcus Aureus - Mrsa Complete 07/29/18 05:15 Urine,Clean Catch Urine Culture - Final Gram Positive Cocci Complete 07/29/18 00:30 Rectum VRE Culture - Final Enterococcus Faecalis - Vre Enterococcus Faecium - Vre Complete Current Medications Medications (Trade) Dose Ordered Sig/Dunia Route PRN Reason Start Time Stop Time Status Last Admin Dose Admin Albuterol/ Ipratropium (Albuterol/ Ipratropium) 3 ml Q4H PRN HHN sob 08/01/18 13:15 08/05/18 09:14 Dextrose (Dextrose 50%) 25 ml Q30M PRN IV Hypoglycemia 08/01/18 12:00 08/31/18 07:29 Dextrose (Dextrose 50%) 50 ml Q30M PRN IV Hypoglycemia 08/01/18 12:00 08/31/18 07:29 Duloxetine HCl (Cymbalta) 30 mg DAILY ORAL 08/02/18 09:00 08/29/18 08:59 08/02/18 09:48 Epoetin Jose (Procrit (for non ESRD use)) 10,000 units MON-WED-WED SUBQ 08/03/18 21:00 09/02/18 20:59 Heparin Sodium (Porcine) (Heparin 5000 units/ml) 5,000 units EVERY 12 HOURS SUBQ 08/01/18 21:00 08/28/18 08:59 08/02/18 09:50 Insulin Aspart (NovoLOG) BEFORE MEALS AND HS SUBQ 08/01/18 16:30 08/31/18 07:29 Insulin Aspart (NovoLOG) 5 units NOVOTIAC SUBQ 08/01/18 16:50 08/31/18 07:29 Insulin Detemir (Levemir) 12 units BID SUBQ 08/01/18 18:00 08/31/18 08:59 08/02/18 09:51 Magnesium Oxide (Mag-Ox 400mg) 400 mg THREE TIMES A DAY ORAL 08/02/18 09:30 09/01/18 09:29 08/02/18 09:48 Meropenem 500 mg/ Sodium Chloride 55 ml @ 110 mls/hr Q24H IVPB 08/01/18 16:00 08/03/18 15:59 08/01/18 16:35 Pantoprazole (Protonix) 40 mg EVERY 12 HOURS ORAL 08/01/18 21:00 08/31/18 20:59 08/02/18 09:48 Potassium Chloride (K-Dur) 20 meq ONCE ORAL 08/02/18 10:00 08/02/18 11:00 08/02/18 09:56 Quetiapine Fumarate (SEROquel) 25 mg Q6H PRN ORAL For Anxiety 08/01/18 21:30 08/31/18 21:29 Sevelamer Carbonate (Renvela) 800 mg THREE TIMES A DAY ORAL 08/01/18 13:00 08/28/18 12:59 08/02/18 09:48 Sodium Citrate (Bicitra) 30 ml EVERY 6 HOURS ORAL 08/01/18 12:00 08/28/18 11:59 08/01/18 23:53 Vitamin B Complex/ Vit C/Folic Acid (Nephrovite) 1 tab DAILY ORAL 08/02/18 09:00 08/29/18 08:59 08/02/18 09:48 Laboratory Tests 08/02/18 03:30: White Blood Count 5.0, Red Blood Count 2.55L, Hemoglobin 7.8L, Hematocrit 23.1L , Mean Corpuscular Volume 91, Mean Corpuscular Hemoglobin 30.6, Mean Corpuscular Hemoglobin Concent 33.8, Red Cell Distribution Width 13.4, Platelet Count 207, Mean Platelet Volume 7.0, Neutrophils (%) (Auto) , Lymphocytes (%) ( Auto) , Monocytes (%) (Auto) , Eosinophils (%) (Auto) , Basophils (%) (Auto) , Sodium Level 143, Potassium Level 3.2L, Chloride Level 109H, Carbon Dioxide Level 23, Anion Gap 11, Blood Urea Nitrogen 68H, Creatinine 5.7H, Estimat Glomerular Filtration Rate 10.1, Glucose Level 70#L, Calcium Level 8.2L, Phosphorus Level 4.0, Magnesium Level 1.5L, Total Bilirubin 0.4, Aspartate Amino Transf (AST/SGOT) 12L, Alanine Aminotransferase (ALT/SGPT) 7L, Alkaline Phosphatase 66, Total Protein 5.2L, Albumin 1.8L, Globulin 3.4, Albumin/ Globulin Ratio 0.5L Height (Feet): 6 Height (Inches): 0.00 Weight (Pounds): 153 Objective exam stable Ye Rios MD Aug 02, 2018 10:24
--- NOTE | 2018-08-02 10:56 | NUR ---
Discharge Planning This SW spoke with neeta Aquino at [facility], who can accept (7 day bed hold will be up after tomorrow, 08/03/2018). This Sw faxed chart information to fax [phone] [facility] (Room [address]A) [facility] [place] [id number] fax [phone] Please contact Paul RUIZ ([phone]) when discharged.
--- NOTE | 2018-08-02 11:39 | General Progress Note ---
Assessment/Plan Problem List: (1) encephalopathy due to metabolic do (2) Major depressive disorder ICD Codes: F32.9 - Major depressive disorder, single episode, unspecified SNOMED: 520400805 Status: unchanged Assessment/Plan cont Cymbalta 40mg qam seroquel 25mg q6hr prn agitation provided ro/st Subjective Neurologic/Psychiatric: Reports: depressed, emotional problems Allergies: Coded Allergies: CEFEPIME (Verified Allergy, Intermediate, Rash, 03/01/18) Tolerates Carbapenem Subjective the pt stated that he was not served breakfast. the pt has poor memory and answered "i dont know" to most questions. Objective Last 24 Hour Vital Signs Date Time Temp Pulse Resp B/P (MAP) Pulse Ox O2 Delivery O2 Flow Rate FiO2 08/02/18 08:00 Room Air 08/02/18 07:14 77 08/02/18 04:00 73 08/02/18 04:00 Room Air 08/02/18 00:00 97.5 71 18 126/64 99 Room Air 08/02/18 00:00 69 08/02/18 00:00 Room Air 08/01/18 20:00 97.7 70 18 119/68 98 Room Air 08/01/18 20:00 Room Air 08/01/18 20:00 72 08/01/18 16:00 97.7 69 20 129/54 98 Room Air 08/01/18 16:00 Room Air 08/01/18 16:00 74 08/01/18 12:00 98.2 74 19 122/57 99 Room Air 08/01/18 12:00 Room Air 08/01/18 12:00 75 Intake and Output 08/01/18 08/02/18 19:00 07:00 Intake Total 1672.5 ml 880 ml Output Total 380 ml 1600 ml Balance 1292.5 ml -720 ml Intake Oral 1000 ml 60 ml IV Total 672.5 ml 820 ml Output Urine Total 380 ml 1600 ml Laboratory Tests 08/02/18 03:30: White Blood Count 5.0, Red Blood Count 2.55L, Hemoglobin 7.8L, Hematocrit 23.1L , Mean Corpuscular Volume 91, Mean Corpuscular Hemoglobin 30.6, Mean Corpuscular Hemoglobin Concent 33.8, Red Cell Distribution Width 13.4, Platelet Count 207, Mean Platelet Volume 7.0, Neutrophils (%) (Auto) , Lymphocytes (%) ( Auto) , Monocytes (%) (Auto) , Eosinophils (%) (Auto) , Basophils (%) (Auto) , Sodium Level 143, Potassium Level 3.2L, Chloride Level 109H, Carbon Dioxide Level 23, Anion Gap 11, Blood Urea Nitrogen 68H, Creatinine 5.7H, Estimat Glomerular Filtration Rate 10.1, Glucose Level 70#L, Calcium Level 8.2L, Phosphorus Level 4.0, Magnesium Level 1.5L, Total Bilirubin 0.4, Aspartate Amino Transf (AST/SGOT) 12L, Alanine Aminotransferase (ALT/SGPT) 7L, Alkaline Phosphatase 66, Total Protein 5.2L, Albumin 1.8L, Globulin 3.4, Albumin/ Globulin Ratio 0.5L Height (Feet): 6 Height (Inches): 0.00 Weight (Pounds): 153 General Appearance: WD/WN, no apparent distress, alert, confused Neurologic: responsive, depressed affect Fatmata Lu MD Aug 02, 2018 11:39
--- NOTE | 2018-08-02 11:45 | Infectious Diseases Prog Note ---
Assessment/Plan Assessment/Plan Assessment: Severe sepsis -likely 2ry to UTI- r/o bacteremia -u.a wbc tntc, nit neg, luek +3; ucx <10k GPC -Bcx NTD -CXR: Suspected atelectasis or scarring right Afebrile Leukocytosis, SP DKA RIVKA, improving hx of recent sepsis 2ry to UTI and bacteremia 07/08/18 UCx - P.a. MDR and Providencia 07/08/18 BCx ESBL Proteus and K. pneumo Dm2 HLD MDD with suicidal attempts in the past w/ resultant chronic encephalopathy CAD/CO BPH anemia asthma colonic polyps ESRD s/p renal and pancreas tx ~10 yrs ago now CKD 4 ConS bacteremia/line infection urinary retention s/p suprapubic catheter 09/2017 recurrent hematuria multiple hospital admissions recurrent UTI DNR Plan: - Cont empiric Meropenem d# 5/5 pending cultures 07/29 SP one dose Amikacin -07/22 SP Meropenem, #14 - f/u cx -Monitor CBC/CMP, temperatures Subjective Allergies: Coded Allergies: CEFEPIME (Verified Allergy, Intermediate, Rash, 03/01/18) Tolerates Carbapenem Subjective afebrile no leukocytosis Bcx NTD transferred out of ICU Objective Vital Signs Last 24 Hour Vital Signs Date Time Temp Pulse Resp B/P (MAP) Pulse Ox O2 Delivery O2 Flow Rate FiO2 08/02/18 08:00 Room Air 08/02/18 07:14 77 08/02/18 04:00 73 08/02/18 04:00 Room Air 08/02/18 00:00 97.5 71 18 126/64 99 Room Air 08/02/18 00:00 69 08/02/18 00:00 Room Air 08/01/18 20:00 97.7 70 18 119/68 98 Room Air 08/01/18 20:00 Room Air 08/01/18 20:00 72 08/01/18 16:00 97.7 69 20 129/54 98 Room Air 08/01/18 16:00 Room Air 08/01/18 16:00 74 08/01/18 12:00 98.2 74 19 122/57 99 Room Air 08/01/18 12:00 Room Air 08/01/18 12:00 75 Height (Feet): 6 Height (Inches): 0.00 Weight (Pounds): 153 Objective Status: awake Condition: critical HEENT: atraumatic Lungs: chest wall tender Heart: HR/BP stable Abdomen: soft, non-tender Extremities: no C/C/E Decubiti: location Laboratory Tests Test 08/02/18 03:30 White Blood Count 5.0 K/UL (4.8-10.8) Red Blood Count 2.55 M/UL (4.70-6.10) L Hemoglobin 7.8 G/DL (14.2-18.0) L Hematocrit 23.1 % (42.0-52.0) L Mean Corpuscular Volume 91 FL (80-99) Mean Corpuscular Hemoglobin 30.6 PG (27.0-31.0) Mean Corpuscular Hemoglobin Concent 33.8 G/DL (32.0-36.0) Red Cell Distribution Width 13.4 % (11.6-14.8) Platelet Count 207 K/UL (150-450) Mean Platelet Volume 7.0 FL (6.5-10.1) Neutrophils (%) (Auto) % (45.0-75.0) Lymphocytes (%) (Auto) % (20.0-45.0) Monocytes (%) (Auto) % (1.0-10.0) Eosinophils (%) (Auto) % (0.0-3.0) Basophils (%) (Auto) % (0.0-2.0) Sodium Level 143 MMOL/L (136-145) Potassium Level 3.2 MMOL/L (3.5-5.1) L Chloride Level 109 MMOL/L (98-107) H Carbon Dioxide Level 23 MMOL/L (21-32) Anion Gap 11 mmol/L (5-15) Blood Urea Nitrogen 68 mg/dL (7-18) H Creatinine 5.7 MG/DL (0.55-1.30) H Estimat Glomerular Filtration Rate 10.1 mL/min (>60) Glucose Level 70 MG/DL (74-106) #L Calcium Level 8.2 MG/DL (8.5-10.1) L Phosphorus Level 4.0 MG/DL (2.5-4.9) Magnesium Level 1.5 MG/DL (1.8-2.4) L Total Bilirubin 0.4 MG/DL (0.2-1.0) Aspartate Amino Transf (AST/SGOT) 12 U/L (15-37) L Alanine Aminotransferase (ALT/SGPT) 7 U/L (12-78) L Alkaline Phosphatase 66 U/L (46-116) Total Protein 5.2 G/DL (6.4-8.2) L Albumin 1.8 G/DL (3.4-5.0) L Globulin 3.4 g/dL Albumin/Globulin Ratio 0.5 (1.0-2.7) L Current Medications Medications (Trade) Dose Ordered Sig/Dunia Route PRN Reason Start Time Stop Time Status Last Admin Dose Admin Albuterol/ Ipratropium (Albuterol/ Ipratropium) 3 ml Q4H PRN HHN sob 08/01/18 13:15 08/05/18 09:14 Dextrose (Dextrose 50%) 25 ml Q30M PRN IV Hypoglycemia 08/01/18 12:00 08/31/18 07:29 Dextrose (Dextrose 50%) 50 ml Q30M PRN IV Hypoglycemia 08/01/18 12:00 08/31/18 07:29 Duloxetine HCl (Cymbalta) 40 mg DAILY ORAL 08/03/18 09:00 09/02/18 08:59 UNV Epoetin Jose (Procrit (for non ESRD use)) 10,000 units WED-WED-WED SUBQ 08/03/18 21:00 09/02/18 20:59 Heparin Sodium (Porcine) (Heparin 5000 units/ml) 5,000 units EVERY 12 HOURS SUBQ 08/01/18 21:00 08/28/18 08:59 08/02/18 09:50 Insulin Aspart (NovoLOG) BEFORE MEALS AND HS SUBQ 08/01/18 16:30 08/31/18 07:29 Insulin Aspart (NovoLOG) 5 units NOVOTIAC SUBQ 08/01/18 16:50 08/31/18 07:29 Insulin Detemir (Levemir) 12 units BID SUBQ 08/01/18 18:00 08/31/18 08:59 08/02/18 09:51 Magnesium Oxide (Mag-Ox 400mg) 400 mg THREE TIMES A DAY ORAL 08/02/18 09:30 09/01/18 09:29 08/02/18 09:48 Meropenem 500 mg/ Sodium Chloride 55 ml @ 110 mls/hr Q24H IVPB 08/01/18 16:00 08/03/18 15:59 08/01/18 16:35 Pantoprazole (Protonix) 40 mg EVERY 12 HOURS ORAL 08/01/18 21:00 08/31/18 20:59 08/02/18 09:48 Quetiapine Fumarate (SEROquel) 25 mg Q6H PRN ORAL For Anxiety 08/01/18 21:30 08/31/18 21:29 Sevelamer Carbonate (Renvela) 800 mg THREE TIMES A DAY ORAL 08/01/18 13:00 08/28/18 12:59 08/02/18 09:48 Sodium Citrate (Bicitra) 30 ml EVERY 6 HOURS ORAL 08/01/18 12:00 08/28/18 11:59 08/01/18 23:53 Vitamin B Complex/ Vit C/Folic Acid (Nephrovite) 1 tab DAILY ORAL 08/02/18 09:00 08/29/18 08:59 08/02/18 09:48 Monique Read M.D. Aug 02, 2018 11:45
[2018-08-02 11:53] VITALS: BP 138/81
--- NOTE | 2018-08-02 12:25 | Nephrology Progress Note ---
Assessment/Plan Problem List: (1) Bladder outlet obstruction (2) Acute on chronic renal failure (3) Anemia in chronic kidney disease (4) BPH (benign prostatic hypertrophy) (5) DKA (diabetic ketoacidoses) (6) Encephalopathy acute Assessment ESRD , in need of dialysis , refuses- presents with high K Encephalopathy , Metabolic Acidosis , Uremic and Diabetic Sever Anemia: Mixed etiology HTn, but presents with low BP Supra Pubic Cath, h/o UTI, BPH Psych disease CAD, elevated Troponin I s/p DKAs Plan DC IV Bicarb Transfuse as needed Sugar control will do poorly in view of no dialysis plans DNR per orders Subjective ROS Limited/Unobtainable: No Constitutional: Reports: malaise Objective Objective Last 24 Hour Vital Signs Date Time Temp Pulse Resp B/P (MAP) Pulse Ox O2 Delivery O2 Flow Rate FiO2 08/02/18 11:53 99.7 89 17 138/81 100 Room Air 08/02/18 08:00 Room Air 08/02/18 07:14 77 08/02/18 04:00 73 08/02/18 04:00 Room Air 08/02/18 00:00 97.5 71 18 126/64 99 Room Air 08/02/18 00:00 69 08/02/18 00:00 Room Air 08/01/18 20:00 97.7 70 18 119/68 98 Room Air 08/01/18 20:00 Room Air 08/01/18 20:00 72 08/01/18 16:00 97.7 69 20 129/54 98 Room Air 08/01/18 16:00 Room Air 08/01/18 16:00 74 Intake and Output 08/01/18 08/02/18 19:00 07:00 Intake Total 1672.5 ml 880 ml Output Total 380 ml 1600 ml Balance 1292.5 ml -720 ml Intake Oral 1000 ml 60 ml IV Total 672.5 ml 820 ml Output Urine Total 380 ml 1600 ml Laboratory Tests 08/02/18 03:30: White Blood Count 5.0, Red Blood Count 2.55L, Hemoglobin 7.8L, Hematocrit 23.1L , Mean Corpuscular Volume 91, Mean Corpuscular Hemoglobin 30.6, Mean Corpuscular Hemoglobin Concent 33.8, Red Cell Distribution Width 13.4, Platelet Count 207, Mean Platelet Volume 7.0, Neutrophils (%) (Auto) , Lymphocytes (%) ( Auto) , Monocytes (%) (Auto) , Eosinophils (%) (Auto) , Basophils (%) (Auto) , Sodium Level 143, Potassium Level 3.2L, Chloride Level 109H, Carbon Dioxide Level 23, Anion Gap 11, Blood Urea Nitrogen 68H, Creatinine 5.7H, Estimat Glomerular Filtration Rate 10.1, Glucose Level 70#L, Calcium Level 8.2L, Phosphorus Level 4.0, Magnesium Level 1.5L, Total Bilirubin 0.4, Aspartate Amino Transf (AST/SGOT) 12L, Alanine Aminotransferase (ALT/SGPT) 7L, Alkaline Phosphatase 66, Total Protein 5.2L, Albumin 1.8L, Globulin 3.4, Albumin/ Globulin Ratio 0.5L Height (Feet): 6 Height (Inches): 0.00 Weight (Pounds): 153 General Appearance: no apparent distress, lethargic Cardiovascular: normal rate Respiratory/Chest: decreased breath sounds Abdomen: soft Objective no change Luis Chambers MD Aug 02, 2018 12:25
[2018-08-02] MEDS: Meropenem 500 MG in NS 55 ML IVPB SCH (15:33)
[2018-08-02 16:00] VITALS: BP 140/82
--- NOTE | 2018-08-02 16:04 | Internal Med Progress Note ---
Subjective Date of Service: Aug 02, 2018 Physician Name Jose Glasgow Attending Physician Christopher Rosado MD Current Medications Medications (Trade) Dose Ordered Sig/Dunia Route PRN Reason Start Time Stop Time Status Last Admin Dose Admin Albuterol/ Ipratropium (Albuterol/ Ipratropium) 3 ml Q4H PRN HHN sob 08/01/18 13:15 08/05/18 09:14 Dextrose (Dextrose 50%) 25 ml Q30M PRN IV Hypoglycemia 08/01/18 12:00 08/31/18 07:29 Dextrose (Dextrose 50%) 50 ml Q30M PRN IV Hypoglycemia 08/01/18 12:00 08/31/18 07:29 Duloxetine HCl (Cymbalta) 40 mg DAILY ORAL 08/03/18 09:00 09/02/18 08:59 Epoetin Jose (Procrit (for non ESRD use)) 10,000 units MON-WED-FRI SUBQ 08/03/18 21:00 09/02/18 20:59 Heparin Sodium (Porcine) (Heparin 5000 units/ml) 5,000 units EVERY 12 HOURS SUBQ 08/01/18 21:00 08/28/18 08:59 08/02/18 09:50 Insulin Aspart (NovoLOG) BEFORE MEALS AND HS SUBQ 08/01/18 16:30 08/31/18 07:29 08/02/18 11:45 Insulin Aspart (NovoLOG) 5 units NOVOTIAC SUBQ 08/01/18 16:50 08/31/18 07:29 08/02/18 11:44 Insulin Detemir (Levemir) 12 units BID SUBQ 08/01/18 18:00 08/31/18 08:59 08/02/18 09:51 Magnesium Oxide (Mag-Ox 400mg) 400 mg THREE TIMES A DAY ORAL 08/02/18 09:30 09/01/18 09:29 08/02/18 12:26 Meropenem 500 mg/ Sodium Chloride 55 ml @ 110 mls/hr Q24H IVPB 08/01/18 16:00 08/03/18 15:59 08/02/18 15:33 Pantoprazole (Protonix) 40 mg EVERY 12 HOURS ORAL 08/01/18 21:00 08/31/18 20:59 08/02/18 09:48 Quetiapine Fumarate (SEROquel) 25 mg Q6H PRN ORAL For Anxiety 08/01/18 21:30 08/31/18 21:29 Sevelamer Carbonate (Renvela) 800 mg THREE TIMES A DAY ORAL 08/01/18 13:00 08/28/18 12:59 08/02/18 12:27 Sodium Citrate (Bicitra) 30 ml EVERY 6 HOURS ORAL 08/01/18 12:00 08/28/18 11:59 08/02/18 12:26 Vitamin B Complex/ Vit C/Folic Acid (Nephrovite) 1 tab DAILY ORAL 08/02/18 09:00 08/29/18 08:59 08/02/18 09:48 Allergies: Coded Allergies: CEFEPIME (Verified Allergy, Intermediate, Rash, 03/01/18) Tolerates Carbapenem ROS Limited/Unobtainable: No Constitutional: Reports: no symptoms HEENT: Reports: no symptoms Cardiovascular: Reports: no symptoms Respiratory: Reports: no symptoms Gastrointestinal/Abdominal: Reports: no symptoms Genitourinary: Reports: no symptoms Neurologic/Psychiatric: Reports: no symptoms Subjective 63 YO M with history of diabetes I admitted with hyperglycemia and DKA. Cover for Int Med-Dr Rosado. CECILE. Continues off Insulin drip Objective Last Vital Signs Date Time Temp Pulse Resp B/P (MAP) Pulse Ox O2 Delivery O2 Flow Rate FiO2 08/02/18 12:00 Room Air 08/02/18 11:53 99.7 89 17 138/81 100 Laboratory Tests Test 08/02/18 03:30 White Blood Count 5.0 K/UL (4.8-10.8) Red Blood Count 2.55 M/UL (4.70-6.10) L Hemoglobin 7.8 G/DL (14.2-18.0) L Hematocrit 23.1 % (42.0-52.0) L Mean Corpuscular Volume 91 FL (80-99) Mean Corpuscular Hemoglobin 30.6 PG (27.0-31.0) Mean Corpuscular Hemoglobin Concent 33.8 G/DL (32.0-36.0) Red Cell Distribution Width 13.4 % (11.6-14.8) Platelet Count 207 K/UL (150-450) Mean Platelet Volume 7.0 FL (6.5-10.1) Neutrophils (%) (Auto) % (45.0-75.0) Lymphocytes (%) (Auto) % (20.0-45.0) Monocytes (%) (Auto) % (1.0-10.0) Eosinophils (%) (Auto) % (0.0-3.0) Basophils (%) (Auto) % (0.0-2.0) Sodium Level 143 MMOL/L (136-145) Potassium Level 3.2 MMOL/L (3.5-5.1) L Chloride Level 109 MMOL/L (98-107) H Carbon Dioxide Level 23 MMOL/L (21-32) Anion Gap 11 mmol/L (5-15) Blood Urea Nitrogen 68 mg/dL (7-18) H Creatinine 5.7 MG/DL (0.55-1.30) H Estimat Glomerular Filtration Rate 10.1 mL/min (>60) Glucose Level 70 MG/DL (74-106) #L Calcium Level 8.2 MG/DL (8.5-10.1) L Phosphorus Level 4.0 MG/DL (2.5-4.9) Magnesium Level 1.5 MG/DL (1.8-2.4) L Total Bilirubin 0.4 MG/DL (0.2-1.0) Aspartate Amino Transf (AST/SGOT) 12 U/L (15-37) L Alanine Aminotransferase (ALT/SGPT) 7 U/L (12-78) L Alkaline Phosphatase 66 U/L (46-116) Total Protein 5.2 G/DL (6.4-8.2) L Albumin 1.8 G/DL (3.4-5.0) L Globulin 3.4 g/dL Albumin/Globulin Ratio 0.5 (1.0-2.7) L Intake and Output 08/01/18 08/02/18 19:00 07:00 Intake Total 1672.5 ml 880 ml Output Total 380 ml 1600 ml Balance 1292.5 ml -720 ml Intake Oral 1000 ml 60 ml IV Total 672.5 ml 820 ml Output Urine Total 380 ml 1600 ml Objective GENERAL: The patient is awake and responsive but confused, in no acute distress. HEAD AND NECK: Pupils are equal and reactive to light. Extraocular movements are intact in the right eye. Left eye blindness, Neck was supple. No JVD. LUNGS: fair air entry. No wheezing or rales. HEART: S1 and S2. Distant heart sounds. No Murmur or gallops. ABDOMEN: Soft, nontender, and nontender. Suprapubic catheter was noted. EXTREMITIES: No cyanosis or clubbing. Bilateral lower extremity trace LE's edema. NEUROLOGIC: Cranial nerves II through XII grossly intact. Motor is 5/5 in all extremities. Gait was not assessed due to the patient's status. Assessment/Plan Assessment/Plan ASSESSMENT: 1. DKA. 2. Hypertension. 3. Dyslipidemia. 4. Diabetes type 1 with prior history of diabetic ketoacidosis. 5. Diabetic retinopathy of the left eye blindness. 6. End-stage renal disease secondary to diabetic nephrosclerosis. 7. Coronary artery disease with prior history of myocardial infarction. 8. 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 9. 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 10. Secondary hyperparathyroidism with vitamin D deficiency. 11. Anemia of chronic kidney disease. 12. Metabolic acidosis. 13. Depression with prior suicide attempt. 14. Acute encephalopathy due to toxic metabolic encephalopathy due to DKA. PLAN: 1. ICU status 2. Code status is DNR/DNI as per POLST in the chart. 3. Resume [facility] medications. 4. Follow up with Labs and culture. 5. Broad spectrum antibiotic with Meropenem. 6. DVT prophylaxis, heparin subcutaneous. 7. We will follow up with Dr. Delgado with critical care , Dr. Chambers from Nephrology and Dr. Rich Wick from Infectious Disease. 8. We will follow up with the cultures and laboratory in the morning. 9. Levemir and Insulin sliding scale per endocrinology Jose Glasgow MD Aug 02, 2018 16:04
--- NOTE | 2018-08-02 16:06 | NUR ---
[employer] SI: HYPERGLYCEMIA, DKA T. 99.7 HR 89 RR 17 B/P 138/87 RA 98% H/H 7.8/23.1 BUN 68 CR 5.7 K 3.2 MG 1.5 IS: MEROPENEM IV ALB HHN PROTONIX PO INSULIN SUBC STEP DOWN STATUS
--- NOTE | 2018-08-02 19:35 | NUR ---
HAND-OFF: Report given to NICOLE RODNEY.
--- NOTE | 2018-08-02 19:36 | NUR ---
NURSE NOTES: Report received from NICOLE Mo. Observed lying on the bed, eating dinner. Alert and oriented x4, calm and cooperative at this time. Denies pain at this time. SR with upsetter helper. Pt is on room air and no signs of SOB. Supra pubic catheter, intact and patent. IV site on R H 20 G. HL, intact and patent. Bed in the lowest position. Side rails up x 2. Call light within reach. Will continue to monitor.
[2018-08-02 20:00] VITALS: BP 140/77
--- NOTE | 2018-08-02 21:05 | NUR ---
NURSE NOTES: Blood sugar 51 noted and PRN D5 given. Observed pt sleeping on the bed. No acute symptom noted.
--- NOTE | 2018-08-02 21:20 | NUR ---
NURSE NOTES: Blood sugar 115 noted. Observed pt sleeping on the bed. Will continue to monitor.
[2018-08-03] VITALS: BP 140/80
[2018-08-03 04:00] VITALS: BP 132/80
[2018-08-03 05:27] LABS: BASOPHILS % (AUTO) 0.7 % (0.0-2.0); EOSINOPHILS % (AUTO) 4.9 % (0.0-3.0); HEMATOCRIT 25.1 % (42.0-52.0); HEMOGLOBIN 8.5 G/DL (14.2-18.0); LYMPHOCYTES % (AUTO) 21.1 % (20.0-45.0); MEAN CORPUSCULAR VOLUME 91 FL (80-99); MONOCYTES % (AUTO) 8.4 % (1.0-10.0); PLATELET COUNT 215 K/UL (150-450); RED BLOOD COUNT 2.77 M/UL (4.70-6.10); RED CELL DISTRIBUTION WIDTH 13.4 % (11.6-14.8); WHITE BLOOD COUNT 6.3 K/UL (4.8-10.8)
[2018-08-03] MEDS: Sodium Citrate 30ml ORAL SCH ×6 (05:43→23:46)
[2018-08-03] MEDS: NovoLOG Insulin Flexpen SUBQ SCH ×7 (05:45→20:43)
[2018-08-03 06:20] LABS: ANION GAP 12 mmol/L (5-15); BLOOD UREA NITROGEN 64 mg/dL (7-18); CALCIUM 8.5 MG/DL (8.5-10.1); CARBON DIOXIDE 22 MMOL/L (21-32); CHLORIDE 108 MMOL/L (98-107); CREATININE 5.7 MG/DL (0.55-1.30); POTASSIUM 3.9 MMOL/L (3.5-5.1); SODIUM 142 MMOL/L (136-145)
--- NOTE | 2018-08-03 06:50 | NUR ---
TRANSFER TO FLOOR: Patient transferred to [facility]. Telemonitor taken out. Report given to NICOLE Hernandez. No belongings checked. Insulin given to RN. No acute distress noted at this time.
--- NOTE | 2018-08-03 07:02 | General Progress Note ---
Assessment/Plan Problem List: (1) DKA (diabetic ketoacidoses) ICD Codes: E13.10 - DKA (diabetic ketoacidoses) SNOMED: 01223178 Qualifiers: Qualified Codes: E10.10 - Type 1 diabetes mellitus with ketoacidosis without coma (2) CKD (chronic kidney disease), stage III ICD Codes: N18.3 - CKD (chronic kidney disease), stage III SNOMED: 328016147 (3) encephalopathy due to metabolic do (4) Pulmonary HTN ICD Codes: I27.0 - Pulmonary HTN SNOMED: 45440812 Assessment/Plan continue Levemir 12 units bid continue Novolog 5 units ac tid NISS ac / hs Subjective ROS Limited/Unobtainable: Yes Allergies: Coded Allergies: CEFEPIME (Verified Allergy, Intermediate, Rash, 03/01/18) Tolerates Carbapenem Subjective events noted of ICU Objective Last 24 Hour Vital Signs Date Time Temp Pulse Resp B/P (MAP) Pulse Ox O2 Delivery O2 Flow Rate FiO2 08/03/18 04:00 89 08/03/18 04:00 97.5 80 16 132/80 98 Room Air 08/03/18 04:00 Room Air 08/03/18 00:00 67 08/03/18 00:00 Room Air 08/03/18 00:00 97.2 73 16 140/80 100 Room Air 08/02/18 20:00 84 08/02/18 20:00 97.5 78 20 140/77 95 Room Air 08/02/18 20:00 Room Air 08/02/18 19:30 77 20 Room Air 08/02/18 16:00 98.6 89 14 140/82 100 Room Air 08/02/18 16:00 Room Air 08/02/18 15:52 87 08/02/18 15:50 83 20 Room Air 08/02/18 12:00 Room Air 08/02/18 11:53 99.7 89 17 138/81 100 Room Air 08/02/18 11:45 85 08/02/18 08:00 Room Air 08/02/18 07:14 77 Intake and Output 08/02/18 08/03/18 19:00 07:00 Intake Total 565 ml 60 ml Output Total 900 ml 1000 ml Balance -335 ml -940 ml Intake Oral 360 ml 60 ml IV Total 205 ml Output Urine Total 900 ml 1000 ml # Bowel Movements 2 Laboratory Tests 08/03/18 03:30: White Blood Count 6.3, Red Blood Count 2.77L, Hemoglobin 8.5L, Hematocrit 25.1L , Mean Corpuscular Volume 91, Mean Corpuscular Hemoglobin 30.7, Mean Corpuscular Hemoglobin Concent 33.9, Red Cell Distribution Width 13.4, Platelet Count 215, Mean Platelet Volume 7.3, Neutrophils (%) (Auto) 65.0, Lymphocytes (% ) (Auto) 21.1, Monocytes (%) (Auto) 8.4, Eosinophils (%) (Auto) 4.9H, Basophils (%) (Auto) 0.7, Sodium Level 142, Potassium Level 3.9, Chloride Level 108H, Carbon Dioxide Level 22, Anion Gap 12, Blood Urea Nitrogen 64H, Creatinine 5.7H , Estimat Glomerular Filtration Rate 10.1, Glucose Level 121H, Calcium Level 8.5 Height (Feet): 6 Height (Inches): 0.00 Weight (Pounds): 153 General Appearance: no apparent distress Neck: normal alignment Cardiovascular: normal rate Respiratory/Chest: decreased breath sounds Abdomen: normal bowel sounds Edema: 1+ Arm (L), 1+ Arm (R), 1+ Leg (L), 1+ Leg (R), 1+ Pedal (L), 1+ Pedal ( R), 1+ Generalized Objective Current Medications Medications (Trade) Dose Ordered Sig/Dunia Route PRN Reason Start Time Stop Time Status Last Admin Dose Admin Albuterol/ Ipratropium (Albuterol/ Ipratropium) 3 ml Q4H PRN HHN sob 08/01/18 13:15 08/05/18 09:14 Dextrose (Dextrose 50%) 25 ml Q30M PRN IV Hypoglycemia 08/01/18 12:00 08/31/18 07:29 Dextrose (Dextrose 50%) 50 ml Q30M PRN IV Hypoglycemia 08/01/18 12:00 08/31/18 07:29 08/02/18 21:05 Duloxetine HCl (Cymbalta) 40 mg DAILY ORAL 08/03/18 09:00 09/02/18 08:59 Epoetin Jose (Procrit (for non ESRD use)) 10,000 units WED-WED-WED SUBQ 08/03/18 21:00 09/02/18 20:59 Heparin Sodium (Porcine) (Heparin 5000 units/ml) 5,000 units EVERY 12 HOURS SUBQ 08/01/18 21:00 08/28/18 08:59 08/02/18 21:17 Insulin Aspart (NovoLOG) BEFORE MEALS AND HS SUBQ 08/01/18 16:30 08/31/18 07:29 08/03/18 05:45 Insulin Aspart (NovoLOG) 5 units NOVOTIAC SUBQ 08/01/18 16:50 08/31/18 07:29 08/02/18 11:44 Insulin Detemir (Levemir) 12 units BID SUBQ 08/01/18 18:00 08/31/18 08:59 08/02/18 09:51 Magnesium Oxide (Mag-Ox 400mg) 400 mg THREE TIMES A DAY ORAL 08/02/18 09:30 09/01/18 09:29 08/02/18 12:26 Meropenem 500 mg/ Sodium Chloride 55 ml @ 110 mls/hr Q24H IVPB 08/01/18 16:00 08/03/18 15:59 08/02/18 15:33 Pantoprazole (Protonix) 40 mg EVERY 12 HOURS ORAL 08/01/18 21:00 08/31/18 20:59 08/02/18 21:12 Quetiapine Fumarate (SEROquel) 25 mg Q6H PRN ORAL For Anxiety 08/01/18 21:30 08/31/18 21:29 Sevelamer Carbonate (Renvela) 800 mg THREE TIMES A DAY ORAL 08/01/18 13:00 08/28/18 12:59 08/02/18 12:27 Sodium Citrate (Bicitra) 30 ml EVERY 6 HOURS ORAL 08/01/18 12:00 08/28/18 11:59 08/02/18 12:26 Vitamin B Complex/ Vit C/Folic Acid (Nephrovite) 1 tab DAILY ORAL 08/02/18 09:00 08/29/18 08:59 08/02/18 09:48 Item Value Date Time Bedside Blood Glucose 203 mg/dl H 08/03/18 0630 Bedside Blood Glucose 51 mg/dl L 08/02/18 2105 Bedside Blood Glucose 84 mg/dl 08/02/18 1800 Bedside Blood Glucose 302 mg/dl H 08/02/18 1145 Bedside Blood Glucose 252 mg/dl H 08/02/18 0951 [place] Jacques MD Aug 03, 2018 07:02
--- NOTE | 2018-08-03 07:30 | NUR ---
HAND-OFF: Report given to NICOLE Mak and NICOLE Read.
[2018-08-03 08:00] VITALS: BP 125/67
--- NOTE | 2018-08-03 08:14 | NUR ---
NURSE NOTES: Received patient from Mary RIVERA, Patient is resting in bed, no distress noted, call light within reach, bed is locked and in lowest position, will continue to monitor.
[2018-08-03] MEDS ORDERED: Albuterol/Ipratropium 3ml neb HHN PRN ×2 (08:30→09:15)
[2018-08-03] MEDS: Nephrovite tab (Rena-Vite) ORAL SCH (08:47)
[2018-08-03] MEDS: Magnesium Oxide 400mg tab ORAL SCH ×3 (08:47→18:09)
[2018-08-03] MEDS: Heparin 5000 units/ml inj SUBQ SCH ×2 (08:49→20:53)
[2018-08-03] MEDS ORDERED: Nephrovite tab (Rena-Vite) ORAL SCH (09:00)
[2018-08-03] MEDS ORDERED: Heparin 5000 units/ml inj SUBQ SCH (09:00)
[2018-08-03] MEDS ORDERED: Levemir Flexpen SUBQ SCH (09:00)
[2018-08-03] MEDS ORDERED: Magnesium Oxide 400mg tab ORAL SCH (09:00)
[2018-08-03] MEDS: Levemir Flexpen SUBQ SCH ×2 (10:24→18:00)
--- NOTE | 2018-08-03 10:47 | Diagnostic Imaging Report ---
APPROVED REPORT CPT Code: 06895 Present Symptoms Comments: Swelling BILATERAL UPPER EXTREMITY (Deep venous system): Imaging reveals patency of the internal jugular, subclavian, axillary and brachial veins. Doppler indicates normal spontaneous flow within these venous segments. SUPERFICIAL VENOUS SYSTEM: Imaging also reveals patency of the left cephalic, right and left basilic veins. The right cephalic vein was occluded. AV Fistula: Imaging reveals an occluded arterio-venous fistula, at the upper arm fossa level.
--- NOTE | 2018-08-03 11:13 | Urology Progress Note ---
Assessment/Plan Assessment/Plan 1. Urinary retention. 2. Neurogenic bladder. 3. History of chronic suprapubic tube. 4. BPH history. 5. History of end-stage renal disease. 6. Hematuria. 7. Pyuria. 8. Proteinuria. 9. Renal cysts. monitor clinically keep sp tube, last placed 08/01 hand irrigated and position satisfactory abx as ordered f/u on blood cx Subjective Allergies: Coded Allergies: CEFEPIME (Verified Allergy, Intermediate, Rash, 03/01/18) Tolerates Carbapenem Subjective all noted, new sp tube draining well Objective Last 24 Hour Vital Signs Date Time Temp Pulse Resp B/P (MAP) Pulse Ox O2 Delivery O2 Flow Rate FiO2 08/03/18 09:13 Room Air 08/03/18 08:07 76 20 Room Air 08/03/18 08:00 97.5 90 19 125/67 95 Room Air 08/03/18 04:00 89 08/03/18 04:00 97.5 80 16 132/80 98 Room Air 08/03/18 04:00 Room Air 08/03/18 00:00 67 08/03/18 00:00 Room Air 08/03/18 00:00 97.2 73 16 140/80 100 Room Air 08/02/18 20:00 84 08/02/18 20:00 97.5 78 20 140/77 95 Room Air 08/02/18 20:00 Room Air 08/02/18 19:30 77 20 Room Air 08/02/18 16:00 98.6 89 14 140/82 100 Room Air 08/02/18 16:00 Room Air 08/02/18 15:52 87 08/02/18 15:50 83 20 Room Air 08/02/18 12:00 Room Air 08/02/18 11:53 99.7 89 17 138/81 100 Room Air 08/02/18 11:45 85 Intake and Output 08/02/18 08/03/18 19:00 07:00 Intake Total 565 ml 60 ml Output Total 900 ml 1000 ml Balance -335 ml -940 ml Intake Oral 360 ml 60 ml IV Total 205 ml Output Urine Total 900 ml 1000 ml # Bowel Movements 2 Microbiology Date/Time Source Procedure Growth Status 07/29/18 05:29 Blood Blood Culture - Preliminary NO GROWTH AFTER 4 DAYS Resulted 07/29/18 00:30 Nasal Nares MRSA Culture - Final Staphylococcus Aureus - Mrsa Complete 07/29/18 05:15 Urine,Clean Catch Urine Culture - Final Gram Positive Cocci Complete 07/29/18 00:30 Rectum VRE Culture - Final Enterococcus Faecalis - Vre Enterococcus Faecium - Vre Complete Current Medications Medications (Trade) Dose Ordered Sig/Dunia Route PRN Reason Start Time Stop Time Status Last Admin Dose Admin Albuterol/ Ipratropium (Albuterol/ Ipratropium) 3 ml Q4H PRN HHN Shortness of Breath 08/03/18 08:30 08/05/18 08:29 Dextrose (Dextrose 50%) 25 ml Q30M PRN IV Hypoglycemia 08/03/18 08:30 08/31/18 07:29 Dextrose (Dextrose 50%) 50 ml Q30M PRN IV Hypoglycemia 08/03/18 08:30 08/31/18 07:29 Duloxetine HCl (Cymbalta) 40 mg DAILY ORAL 08/03/18 09:00 09/02/18 08:59 08/03/18 08:47 Epoetin Jose (Procrit (for non ESRD use)) 10,000 units MON-WED-WED SUBQ 08/03/18 21:00 09/02/18 20:59 Heparin Sodium (Porcine) (Heparin 5000 units/ml) 5,000 units EVERY 12 HOURS SUBQ 08/03/18 09:00 08/28/18 08:59 08/03/18 08:49 Insulin Aspart (NovoLOG) BEFORE MEALS AND HS SUBQ 08/03/18 11:30 08/31/18 07:29 Insulin Aspart (NovoLOG) 5 units NOVOTIAC SUBQ 08/03/18 11:50 08/31/18 07:29 Insulin Detemir (Levemir) 12 units BID SUBQ 08/03/18 09:00 08/31/18 08:59 08/03/18 10:24 Magnesium Oxide (Mag-Ox 400mg) 400 mg THREE TIMES A DAY ORAL 08/03/18 09:00 09/01/18 09:29 08/03/18 08:47 Meropenem 500 mg/ Sodium Chloride 55 ml @ 110 mls/hr Q24H IVPB 08/03/18 16:00 08/08/18 15:59 Pantoprazole (Protonix) 40 mg EVERY 12 HOURS ORAL 08/03/18 09:00 08/31/18 20:59 08/03/18 08:47 Quetiapine Fumarate (SEROquel) 25 mg Q6H PRN ORAL For Anxiety 08/03/18 08:30 08/31/18 08:29 Sevelamer Carbonate (Renvela) 800 mg THREE TIMES A DAY ORAL 08/03/18 09:00 08/28/18 12:59 08/03/18 08:47 Sodium Citrate (Bicitra) 30 ml EVERY 6 HOURS ORAL 08/03/18 12:00 08/28/18 11:59 Vitamin B Complex/ Vit C/Folic Acid (Nephrovite) 1 tab DAILY ORAL 08/03/18 09:00 08/29/18 08:59 08/03/18 08:47 Laboratory Tests 08/03/18 03:30: White Blood Count 6.3, Red Blood Count 2.77L, Hemoglobin 8.5L, Hematocrit 25.1L , Mean Corpuscular Volume 91, Mean Corpuscular Hemoglobin 30.7, Mean Corpuscular Hemoglobin Concent 33.9, Red Cell Distribution Width 13.4, Platelet Count 215, Mean Platelet Volume 7.3, Neutrophils (%) (Auto) 65.0, Lymphocytes (% ) (Auto) 21.1, Monocytes (%) (Auto) 8.4, Eosinophils (%) (Auto) 4.9H, Basophils (%) (Auto) 0.7, Sodium Level 142, Potassium Level 3.9, Chloride Level 108H, Carbon Dioxide Level 22, Anion Gap 12, Blood Urea Nitrogen 64H, Creatinine 5.7H , Estimat Glomerular Filtration Rate 10.1, Glucose Level 121H, Calcium Level 8.5 Height (Feet): 6 Height (Inches): 0.00 Weight (Pounds): 153 Objective exam stable Ye Rios MD Aug 03, 2018 11:13
[2018-08-03] MEDS ORDERED: NovoLOG Insulin Flexpen SUBQ SCH ×2 (11:30→11:50)
[2018-08-03 11:51] VITALS: BP 123/67
--- NOTE | 2018-08-03 11:53 | General Progress Note ---
Assessment/Plan Problem List: (1) encephalopathy due to metabolic do (2) Major depressive disorder ICD Codes: F32.9 - Major depressive disorder, single episode, unspecified SNOMED: 312035301 Status: stable Assessment/Plan cont Cymbalta 40mg qam seroquel 25mg q6hr prn agitation provided ro/st Subjective Neurologic/Psychiatric: Reports: anxiety, depressed Allergies: Coded Allergies: CEFEPIME (Verified Allergy, Intermediate, Rash, 03/01/18) Tolerates Carbapenem Subjective the pt had breakfast today, in a good mood still disoriented. Objective Last 24 Hour Vital Signs Date Time Temp Pulse Resp B/P (MAP) Pulse Ox O2 Delivery O2 Flow Rate FiO2 08/03/18 09:13 Room Air 08/03/18 08:07 76 20 Room Air 08/03/18 08:00 97.5 90 19 125/67 95 Room Air 08/03/18 04:00 89 08/03/18 04:00 97.5 80 16 132/80 98 Room Air 08/03/18 04:00 Room Air 08/03/18 00:00 67 08/03/18 00:00 Room Air 08/03/18 00:00 97.2 73 16 140/80 100 Room Air 08/02/18 20:00 84 08/02/18 20:00 97.5 78 20 140/77 95 Room Air 08/02/18 20:00 Room Air 08/02/18 19:30 77 20 Room Air 21 08/02/18 16:00 98.6 89 14 140/82 100 Room Air 08/02/18 16:00 Room Air 08/02/18 15:52 87 08/02/18 15:50 83 20 Room Air 08/02/18 12:00 Room Air 08/02/18 11:53 99.7 89 17 138/81 100 Room Air Intake and Output 08/02/18 08/03/18 19:00 07:00 Intake Total 565 ml 60 ml Output Total 900 ml 1000 ml Balance -335 ml -940 ml Intake Oral 360 ml 60 ml IV Total 205 ml Output Urine Total 900 ml 1000 ml # Bowel Movements 2 Laboratory Tests 08/03/18 03:30: White Blood Count 6.3, Red Blood Count 2.77L, Hemoglobin 8.5L, Hematocrit 25.1L , Mean Corpuscular Volume 91, Mean Corpuscular Hemoglobin 30.7, Mean Corpuscular Hemoglobin Concent 33.9, Red Cell Distribution Width 13.4, Platelet Count 215, Mean Platelet Volume 7.3, Neutrophils (%) (Auto) 65.0, Lymphocytes (% ) (Auto) 21.1, Monocytes (%) (Auto) 8.4, Eosinophils (%) (Auto) 4.9H, Basophils (%) (Auto) 0.7, Sodium Level 142, Potassium Level 3.9, Chloride Level 108H, Carbon Dioxide Level 22, Anion Gap 12, Blood Urea Nitrogen 64H, Creatinine 5.7H , Estimat Glomerular Filtration Rate 10.1, Glucose Level 121H, Calcium Level 8.5 Height (Feet): 6 Height (Inches): 0.00 Weight (Pounds): 153 General Appearance: no apparent distress, alert Neurologic: depressed affect Fatmata Lu MD Aug 03, 2018 11:53
[2018-08-03] MEDS ORDERED: Sodium Citrate 30ml ORAL SCH (12:00)
--- NOTE | 2018-08-03 12:23 | Nephrology Progress Note ---
Assessment/Plan Problem List: (1) Bladder outlet obstruction (2) Acute on chronic renal failure (3) Anemia in chronic kidney disease (4) BPH (benign prostatic hypertrophy) (5) DKA (diabetic ketoacidoses) (6) Encephalopathy acute Assessment ESRD , in need of dialysis , refuses- presents with high K Encephalopathy , Metabolic Acidosis , Uremic and Diabetic Sever Anemia: Mixed etiology HTn, but presents with low BP Supra Pubic Cath, h/o UTI, BPH Psych disease CAD, elevated Troponin I s/p DKAs Plan DC IV Bicarb Transfuse as needed Sugar control will do poorly in view of no dialysis plans DNR per orders Subjective ROS Limited/Unobtainable: No Constitutional: Reports: malaise Objective Objective Last 24 Hour Vital Signs Date Time Temp Pulse Resp B/P (MAP) Pulse Ox O2 Delivery O2 Flow Rate FiO2 08/03/18 11:51 97.9 88 20 123/67 96 Room Air 08/03/18 09:13 Room Air 08/03/18 08:07 76 20 Room Air 08/03/18 08:00 97.5 90 19 125/67 95 Room Air 08/03/18 04:00 89 08/03/18 04:00 97.5 80 16 132/80 98 Room Air 08/03/18 04:00 Room Air 08/03/18 00:00 67 08/03/18 00:00 Room Air 08/03/18 00:00 97.2 73 16 140/80 100 Room Air 08/02/18 20:00 84 08/02/18 20:00 97.5 78 20 140/77 95 Room Air 08/02/18 20:00 Room Air 08/02/18 19:30 77 20 Room Air 21 08/02/18 16:00 98.6 89 14 140/82 100 Room Air 08/02/18 16:00 Room Air 08/02/18 15:52 87 08/02/18 15:50 83 20 Room Air 21 Intake and Output 08/02/18 08/03/18 19:00 07:00 Intake Total 565 ml 60 ml Output Total 900 ml 1000 ml Balance -335 ml -940 ml Intake Oral 360 ml 60 ml IV Total 205 ml Output Urine Total 900 ml 1000 ml # Bowel Movements 2 Current Medications Medications (Trade) Dose Ordered Sig/Dunia Route PRN Reason Start Time Stop Time Status Last Admin Dose Admin Albuterol/ Ipratropium (Albuterol/ Ipratropium) 3 ml Q4H PRN HHN Shortness of Breath 08/03/18 08:30 08/05/18 08:29 Dextrose (Dextrose 50%) 25 ml Q30M PRN IV Hypoglycemia 08/03/18 08:30 08/31/18 07:29 Dextrose (Dextrose 50%) 50 ml Q30M PRN IV Hypoglycemia 08/03/18 08:30 08/31/18 07:29 Duloxetine HCl (Cymbalta) 40 mg DAILY ORAL 08/03/18 09:00 09/02/18 08:59 08/03/18 08:47 Epoetin Jose (Procrit (for non ESRD use)) 10,000 units WED-WED-WED SUBQ 08/03/18 21:00 09/02/18 20:59 Heparin Sodium (Porcine) (Heparin 5000 units/ml) 5,000 units EVERY 12 HOURS SUBQ 08/03/18 09:00 08/28/18 08:59 08/03/18 08:49 Insulin Aspart (NovoLOG) BEFORE MEALS AND HS SUBQ 08/03/18 11:30 08/31/18 07:29 Insulin Aspart (NovoLOG) 5 units NOVOTIAC SUBQ 08/03/18 11:50 08/31/18 07:29 Insulin Detemir (Levemir) 12 units BID SUBQ 08/03/18 09:00 08/31/18 08:59 08/03/18 10:24 Magnesium Oxide (Mag-Ox 400mg) 400 mg THREE TIMES A DAY ORAL 08/03/18 09:00 09/01/18 09:29 08/03/18 08:47 Meropenem 500 mg/ Sodium Chloride 55 ml @ 110 mls/hr Q24H IVPB 08/03/18 16:00 08/08/18 15:59 Pantoprazole (Protonix) 40 mg EVERY 12 HOURS ORAL 08/03/18 09:00 08/31/18 20:59 08/03/18 08:47 Quetiapine Fumarate (SEROquel) 25 mg Q6H PRN ORAL For Anxiety 08/03/18 08:30 08/31/18 08:29 Sevelamer Carbonate (Renvela) 800 mg THREE TIMES A DAY ORAL 08/03/18 09:00 08/28/18 12:59 08/03/18 08:47 Sodium Citrate (Bicitra) 30 ml EVERY 6 HOURS ORAL 08/03/18 12:00 08/28/18 11:59 Vitamin B Complex/ Vit C/Folic Acid (Nephrovite) 1 tab DAILY ORAL 08/03/18 09:00 08/29/18 08:59 08/03/18 08:47 Laboratory Tests 08/03/18 03:30: White Blood Count 6.3, Red Blood Count 2.77L, Hemoglobin 8.5L, Hematocrit 25.1L , Mean Corpuscular Volume 91, Mean Corpuscular Hemoglobin 30.7, Mean Corpuscular Hemoglobin Concent 33.9, Red Cell Distribution Width 13.4, Platelet Count 215, Mean Platelet Volume 7.3, Neutrophils (%) (Auto) 65.0, Lymphocytes (% ) (Auto) 21.1, Monocytes (%) (Auto) 8.4, Eosinophils (%) (Auto) 4.9H, Basophils (%) (Auto) 0.7, Sodium Level 142, Potassium Level 3.9, Chloride Level 108H, Carbon Dioxide Level 22, Anion Gap 12, Blood Urea Nitrogen 64H, Creatinine 5.7H , Estimat Glomerular Filtration Rate 10.1, Glucose Level 121H, Calcium Level 8.5 Height (Feet): 6 Height (Inches): 0.00 Weight (Pounds): 153 General Appearance: no apparent distress Cardiovascular: normal rate Respiratory/Chest: decreased breath sounds Abdomen: soft Objective no change Luis Chambers MD Aug 03, 2018 12:23
--- NOTE | 2018-08-03 13:29 | Pulmonology Progress Note ---
Assessment/Plan Problems: (1) Encephalopathy acute (2) DKA (diabetic ketoacidoses) (3) Anemia in chronic kidney disease (4) CKD (chronic kidney disease), stage III (5) Major depressive disorder (6) Bladder outlet obstruction (7) Suprapubic catheter Assessment/Plan no new complains Bs better controlled Acidosis improving Add epogen for anemia pt refusing HD check electrolytes continue DNR dvt prophylaxis Subjective ROS Limited/Unobtainable: No Constitutional: Reports: no symptoms HEENT: Repors: no symptoms Respiratory: Reports: no symptoms Allergies: Coded Allergies: CEFEPIME (Verified Allergy, Intermediate, Rash, 03/01/18) Tolerates Carbapenem Objective Last 24 Hour Vital Signs Date Time Temp Pulse Resp B/P (MAP) Pulse Ox O2 Delivery O2 Flow Rate FiO2 08/03/18 11:51 97.9 88 20 123/67 96 Room Air 08/03/18 09:13 Room Air 08/03/18 08:07 76 20 Room Air 08/03/18 08:00 97.5 90 19 125/67 95 Room Air 08/03/18 04:00 89 08/03/18 04:00 97.5 80 16 132/80 98 Room Air 08/03/18 04:00 Room Air 08/03/18 00:00 67 08/03/18 00:00 Room Air 08/03/18 00:00 97.2 73 16 140/80 100 Room Air 08/02/18 20:00 84 08/02/18 20:00 97.5 78 20 140/77 95 Room Air 08/02/18 20:00 Room Air 08/02/18 19:30 77 20 Room Air 21 08/02/18 16:00 98.6 89 14 140/82 100 Room Air 08/02/18 16:00 Room Air 08/02/18 15:52 87 08/02/18 15:50 83 20 Room Air 21 Intake and Output 08/02/18 08/03/18 19:00 07:00 Intake Total 565 ml 60 ml Output Total 900 ml 1000 ml Balance -335 ml -940 ml Intake Oral 360 ml 60 ml IV Total 205 ml Output Urine Total 900 ml 1000 ml # Bowel Movements 2 General Appearance: WD/WN HEENT: normocephalic, atraumatic Respiratory/Chest: chest wall non-tender, lungs clear Cardiovascular: normal peripheral pulses, normal rate Abdomen: normal bowel sounds, soft, non tender Genitourinary: normal external genitalia Extremities: no cyanosis Skin: no rash 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/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 normal Lymphatic: no neck adenopathy Laboratory Tests 08/03/18 03:30: White Blood Count 6.3, Red Blood Count 2.77L, Hemoglobin 8.5L, Hematocrit 25.1L , Mean Corpuscular Volume 91, Mean Corpuscular Hemoglobin 30.7, Mean Corpuscular Hemoglobin Concent 33.9, Red Cell Distribution Width 13.4, Platelet Count 215, Mean Platelet Volume 7.3, Neutrophils (%) (Auto) 65.0, Lymphocytes (% ) (Auto) 21.1, Monocytes (%) (Auto) 8.4, Eosinophils (%) (Auto) 4.9H, Basophils (%) (Auto) 0.7, Sodium Level 142, Potassium Level 3.9, Chloride Level 108H, Carbon Dioxide Level 22, Anion Gap 12, Blood Urea Nitrogen 64H, Creatinine 5.7H , Estimat Glomerular Filtration Rate 10.1, Glucose Level 121H, Calcium Level 8.5 Current Medications Medications (Trade) Dose Ordered Sig/Dunia Route PRN Reason Start Time Stop Time Status Last Admin Dose Admin Albuterol/ Ipratropium (Albuterol/ Ipratropium) 3 ml Q4H PRN HHN Shortness of Breath 08/03/18 08:30 08/05/18 08:29 Dextrose (Dextrose 50%) 25 ml Q30M PRN IV Hypoglycemia 08/03/18 08:30 08/31/18 07:29 Dextrose (Dextrose 50%) 50 ml Q30M PRN IV Hypoglycemia 08/03/18 08:30 08/31/18 07:29 Duloxetine HCl (Cymbalta) 40 mg DAILY ORAL 08/03/18 09:00 09/02/18 08:59 08/03/18 08:47 Epoetin Jose (Procrit (for non ESRD use)) 10,000 units WED-WED-WED SUBQ 08/03/18 21:00 09/02/18 20:59 Heparin Sodium (Porcine) (Heparin 5000 units/ml) 5,000 units EVERY 12 HOURS SUBQ 08/03/18 09:00 08/28/18 08:59 08/03/18 08:49 Insulin Aspart (NovoLOG) BEFORE MEALS AND HS SUBQ 08/03/18 11:30 08/31/18 07:29 08/03/18 12:34 Insulin Aspart (NovoLOG) 5 units NOVOTIAC SUBQ 08/03/18 11:50 08/31/18 07:29 08/03/18 12:33 Insulin Detemir (Levemir) 12 units BID SUBQ 08/03/18 09:00 08/31/18 08:59 08/03/18 10:24 Magnesium Oxide (Mag-Ox 400mg) 400 mg THREE TIMES A DAY ORAL 08/03/18 09:00 09/01/18 09:29 08/03/18 12:34 Meropenem 500 mg/ Sodium Chloride 55 ml @ 110 mls/hr Q24H IVPB 08/03/18 16:00 08/08/18 15:59 Pantoprazole (Protonix) 40 mg EVERY 12 HOURS ORAL 08/03/18 09:00 08/31/18 20:59 08/03/18 08:47 Quetiapine Fumarate (SEROquel) 25 mg Q6H PRN ORAL For Anxiety 08/03/18 08:30 08/31/18 08:29 Sevelamer Carbonate (Renvela) 800 mg THREE TIMES A DAY ORAL 08/03/18 09:00 08/28/18 12:59 08/03/18 12:34 Sodium Citrate (Bicitra) 30 ml EVERY 6 HOURS ORAL 08/03/18 12:00 08/28/18 11:59 08/03/18 12:34 Vitamin B Complex/ Vit C/Folic Acid (Nephrovite) 1 tab DAILY ORAL 08/03/18 09:00 08/29/18 08:59 08/03/18 08:47 Esdras Delgado MD Aug 03, 2018 13:29
--- NOTE | 2018-08-03 14:11 | Infectious Diseases Prog Note ---
Assessment/Plan Assessment/Plan Assessment: Severe sepsis -likely 2ry to UTI- SP, s/p rx -u.a wbc tntc, nit neg, luek +3; ucx <10k GPC -Bcx NTD -CXR: Suspected atelectasis or scarring right Afebrile Leukocytosis, SP DKA RIVKA, improving hx of recent sepsis 2ry to UTI and bacteremia 07/08/18 UCx - P.a. MDR and Providencia 07/08/18 BCx ESBL Proteus and K. pneumo Dm2 HLD MDD with suicidal attempts in the past w/ resultant chronic encephalopathy CAD/VT BPH anemia asthma colonic polyps ESRD s/p renal and pancreas tx ~10 yrs ago now CKD 4 ConS bacteremia/line infection urinary retention s/p suprapubic catheter 09/2017 recurrent hematuria multiple hospital admissions recurrent UTI DNR Plan: - Cont to monitor off abx -08/02 SP Meropenem d# 5 07/29 SP one dose Amikacin -07/22 SP Meropenem, #14 - f/u cx -Monitor CBC/CMP, temperatures Subjective Allergies: Coded Allergies: CEFEPIME (Verified Allergy, Intermediate, Rash, 03/01/18) Tolerates Carbapenem Subjective afebrile no leukocytosis Bcx NTD trasnsferred from [facility] to Med Surg Objective Vital Signs Last 24 Hour Vital Signs Date Time Temp Pulse Resp B/P (MAP) Pulse Ox O2 Delivery O2 Flow Rate FiO2 08/03/18 11:51 97.9 88 20 123/67 96 Room Air 08/03/18 09:13 Room Air 08/03/18 08:07 76 20 Room Air 08/03/18 08:00 97.5 90 19 125/67 95 Room Air 08/03/18 04:00 89 08/03/18 04:00 97.5 80 16 132/80 98 Room Air 08/03/18 04:00 Room Air 08/03/18 00:00 67 08/03/18 00:00 Room Air 08/03/18 00:00 97.2 73 16 140/80 100 Room Air 08/02/18 20:00 84 08/02/18 20:00 97.5 78 20 140/77 95 Room Air 08/02/18 20:00 Room Air 08/02/18 19:30 77 20 Room Air 08/02/18 16:00 98.6 89 14 140/82 100 Room Air 08/02/18 16:00 Room Air 08/02/18 15:52 87 08/02/18 15:50 83 20 Room Air 21 Height (Feet): 6 Height (Inches): 0.00 Weight (Pounds): 153 Objective Status: awake Condition: critical HEENT: atraumatic Lungs: chest wall tender Heart: HR/BP stable Abdomen: soft, non-tender Extremities: no C/C/E Decubiti: location Laboratory Tests Test 08/03/18 03:30 White Blood Count 6.3 K/UL (4.8-10.8) Red Blood Count 2.77 M/UL (4.70-6.10) L Hemoglobin 8.5 G/DL (14.2-18.0) L Hematocrit 25.1 % (42.0-52.0) L Mean Corpuscular Volume 91 FL (80-99) Mean Corpuscular Hemoglobin 30.7 PG (27.0-31.0) Mean Corpuscular Hemoglobin Concent 33.9 G/DL (32.0-36.0) Red Cell Distribution Width 13.4 % (11.6-14.8) Platelet Count 215 K/UL (150-450) Mean Platelet Volume 7.3 FL (6.5-10.1) Neutrophils (%) (Auto) 65.0 % (45.0-75.0) Lymphocytes (%) (Auto) 21.1 % (20.0-45.0) Monocytes (%) (Auto) 8.4 % (1.0-10.0) Eosinophils (%) (Auto) 4.9 % (0.0-3.0) H Basophils (%) (Auto) 0.7 % (0.0-2.0) Sodium Level 142 MMOL/L (136-145) Potassium Level 3.9 MMOL/L (3.5-5.1) Chloride Level 108 MMOL/L (98-107) H Carbon Dioxide Level 22 MMOL/L (21-32) Anion Gap 12 mmol/L (5-15) Blood Urea Nitrogen 64 mg/dL (7-18) H Creatinine 5.7 MG/DL (0.55-1.30) H Estimat Glomerular Filtration Rate 10.1 mL/min (>60) Glucose Level 121 MG/DL (74-106) H Calcium Level 8.5 MG/DL (8.5-10.1) Current Medications Medications (Trade) Dose Ordered Sig/Dunia Route PRN Reason Start Time Stop Time Status Last Admin Dose Admin Albuterol/ Ipratropium (Albuterol/ Ipratropium) 3 ml Q4H PRN HHN Shortness of Breath 08/03/18 08:30 08/05/18 08:29 Dextrose (Dextrose 50%) 25 ml Q30M PRN IV Hypoglycemia 08/03/18 08:30 08/31/18 07:29 Dextrose (Dextrose 50%) 50 ml Q30M PRN IV Hypoglycemia 08/03/18 08:30 08/31/18 07:29 Duloxetine HCl (Cymbalta) 40 mg DAILY ORAL 08/03/18 09:00 09/02/18 08:59 08/03/18 08:47 Epoetin Jose (Procrit (for non ESRD use)) 10,000 units WED-WED-WED SUBQ 08/03/18 21:00 09/02/18 20:59 Heparin Sodium (Porcine) (Heparin 5000 units/ml) 5,000 units EVERY 12 HOURS SUBQ 08/03/18 09:00 08/28/18 08:59 08/03/18 08:49 Insulin Aspart (NovoLOG) BEFORE MEALS AND HS SUBQ 08/03/18 11:30 08/31/18 07:29 08/03/18 12:34 Insulin Aspart (NovoLOG) 5 units NOVOTIAC SUBQ 08/03/18 11:50 08/31/18 07:29 08/03/18 12:33 Insulin Detemir (Levemir) 12 units BID SUBQ 08/03/18 09:00 08/31/18 08:59 08/03/18 10:24 Magnesium Oxide (Mag-Ox 400mg) 400 mg THREE TIMES A DAY ORAL 08/03/18 09:00 09/01/18 09:29 08/03/18 12:34 Meropenem 500 mg/ Sodium Chloride 55 ml @ 110 mls/hr Q24H IVPB 08/03/18 16:00 08/08/18 15:59 Pantoprazole (Protonix) 40 mg EVERY 12 HOURS ORAL 08/03/18 09:00 08/31/18 20:59 08/03/18 08:47 Quetiapine Fumarate (SEROquel) 25 mg Q6H PRN ORAL For Anxiety 08/03/18 08:30 08/31/18 08:29 Sevelamer Carbonate (Renvela) 800 mg THREE TIMES A DAY ORAL 08/03/18 09:00 08/28/18 12:59 08/03/18 12:34 Sodium Citrate (Bicitra) 30 ml EVERY 6 HOURS ORAL 08/03/18 12:00 08/28/18 11:59 08/03/18 12:34 Vitamin B Complex/ Vit C/Folic Acid (Nephrovite) 1 tab DAILY ORAL 08/03/18 09:00 08/29/18 08:59 08/03/18 08:47 Monique Read M.D. Aug 03, 2018 14:11
[2018-08-03 16:00] VITALS: BP 127/71
[2018-08-03] MEDS ORDERED: Meropenem 500 MG in NS 55 ML IVPB SCH ×4 (16:00)
--- NOTE | 2018-08-03 19:09 | Internal Med Progress Note ---
Subjective Date of Service: Aug 03, 2018 Physician Name Jose Glasgow Attending Physician Christopher Rosado MD Current Medications Medications (Trade) Dose Ordered Sig/Dunia Route PRN Reason Start Time Stop Time Status Last Admin Dose Admin Albuterol/ Ipratropium (Albuterol/ Ipratropium) 3 ml Q4H PRN HHN Shortness of Breath 08/03/18 08:30 08/05/18 08:29 Dextrose (Dextrose 50%) 25 ml Q30M PRN IV Hypoglycemia 08/03/18 08:30 08/31/18 07:29 Dextrose (Dextrose 50%) 50 ml Q30M PRN IV Hypoglycemia 08/03/18 08:30 08/31/18 07:29 Duloxetine HCl (Cymbalta) 40 mg DAILY ORAL 08/03/18 09:00 09/02/18 08:59 08/03/18 08:47 Epoetin Jose (Epoetin Jose-EPBX(NON ESRD)) 10,000 unit WED-WED-WED SUBQ 08/03/18 21:00 09/02/18 20:59 Heparin Sodium (Porcine) (Heparin 5000 units/ml) 5,000 units EVERY 12 HOURS SUBQ 08/03/18 09:00 08/28/18 08:59 08/03/18 08:49 Insulin Aspart (NovoLOG) BEFORE MEALS AND HS SUBQ 08/03/18 11:30 08/31/18 07:29 08/03/18 12:34 Insulin Aspart (NovoLOG) 5 units NOVOTIAC SUBQ 08/03/18 11:50 08/31/18 07:29 08/03/18 12:33 Insulin Detemir (Levemir) 12 units BID SUBQ 08/03/18 09:00 08/31/18 08:59 08/03/18 10:24 Magnesium Oxide (Mag-Ox 400mg) 400 mg THREE TIMES A DAY ORAL 08/03/18 09:00 09/01/18 09:29 08/03/18 18:09 Pantoprazole (Protonix) 40 mg EVERY 12 HOURS ORAL 08/03/18 09:00 08/31/18 20:59 08/03/18 08:47 Quetiapine Fumarate (SEROquel) 25 mg Q6H PRN ORAL For Anxiety 08/03/18 08:30 08/31/18 08:29 Sevelamer Carbonate (Renvela) 800 mg THREE TIMES A DAY ORAL 08/03/18 09:00 08/28/18 12:59 08/03/18 18:09 Sodium Citrate (Bicitra) 30 ml EVERY 6 HOURS ORAL 08/03/18 12:00 08/28/18 11:59 08/03/18 18:09 Vitamin B Complex/ Vit C/Folic Acid (Nephrovite) 1 tab DAILY ORAL 08/03/18 09:00 08/29/18 08:59 08/03/18 08:47 Allergies: Coded Allergies: CEFEPIME (Verified Allergy, Intermediate, Rash, 03/01/18) Tolerates Carbapenem ROS Limited/Unobtainable: Yes Subjective 63 YO M with history of diabetes I admitted with hyperglycemia and DKA. Cover for Int Med-Dr Rosado. Objective Last Vital Signs Date Time Temp Pulse Resp B/P (MAP) Pulse Ox O2 Delivery O2 Flow Rate FiO2 08/03/18 16:00 98.0 80 19 127/71 97 Room Air 08/03/18 08:07 21 Laboratory Tests Test 08/03/18 03:30 White Blood Count 6.3 K/UL (4.8-10.8) Red Blood Count 2.77 M/UL (4.70-6.10) L Hemoglobin 8.5 G/DL (14.2-18.0) L Hematocrit 25.1 % (42.0-52.0) L Mean Corpuscular Volume 91 FL (80-99) Mean Corpuscular Hemoglobin 30.7 PG (27.0-31.0) Mean Corpuscular Hemoglobin Concent 33.9 G/DL (32.0-36.0) Red Cell Distribution Width 13.4 % (11.6-14.8) Platelet Count 215 K/UL (150-450) Mean Platelet Volume 7.3 FL (6.5-10.1) Neutrophils (%) (Auto) 65.0 % (45.0-75.0) Lymphocytes (%) (Auto) 21.1 % (20.0-45.0) Monocytes (%) (Auto) 8.4 % (1.0-10.0) Eosinophils (%) (Auto) 4.9 % (0.0-3.0) H Basophils (%) (Auto) 0.7 % (0.0-2.0) Sodium Level 142 MMOL/L (136-145) Potassium Level 3.9 MMOL/L (3.5-5.1) Chloride Level 108 MMOL/L (98-107) H Carbon Dioxide Level 22 MMOL/L (21-32) Anion Gap 12 mmol/L (5-15) Blood Urea Nitrogen 64 mg/dL (7-18) H Creatinine 5.7 MG/DL (0.55-1.30) H Estimat Glomerular Filtration Rate 10.1 mL/min (>60) Glucose Level 121 MG/DL (74-106) H Calcium Level 8.5 MG/DL (8.5-10.1) Intake and Output 08/02/18 08/03/18 19:00 07:00 Intake Total 565 ml 60 ml Output Total 900 ml 1000 ml Balance -335 ml -940 ml Intake Oral 360 ml 60 ml IV Total 205 ml Output Urine Total 900 ml 1000 ml # Bowel Movements 2 Objective GENERAL: The patient is awake and responsive but confused, in no acute distress. HEAD AND NECK: Pupils are equal and reactive to light. Extraocular movements are intact in the right eye. Left eye blindness, Neck was supple. No JVD. LUNGS: fair air entry. No wheezing or rales. HEART: S1 and S2. Distant heart sounds. No Murmur or gallops. ABDOMEN: Soft, nontender, and nontender. Suprapubic catheter was noted. EXTREMITIES: No cyanosis or clubbing. Bilateral lower extremity trace LE's edema. NEUROLOGIC: Cranial nerves II through XII grossly intact. Motor is 5/5 in all extremities. Gait was not assessed due to the patient's status. Assessment/Plan Assessment/Plan ASSESSMENT: 1. DKA. 2. Hypertension. 3. Dyslipidemia. 4. Diabetes type 1 with prior history of diabetic ketoacidosis. 5. Diabetic retinopathy of the left eye blindness. 6. End-stage renal disease secondary to diabetic nephrosclerosis. 7. Coronary artery disease with prior history of myocardial infarction. 8. 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 9. 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 10. Secondary hyperparathyroidism with vitamin D deficiency. 11. Anemia of chronic kidney disease. 12. Metabolic acidosis. 13. Depression with prior suicide attempt. 14. Acute encephalopathy due to toxic metabolic encephalopathy due to DKA. PLAN: 1. Med/surg 2. Code status is DNR/DNI as per POLST in the chart. 3. Resume [facility]p medications. 4. Follow up with Labs and culture. 5. Broad spectrum antibiotic with Meropenem. 6. DVT prophylaxis, heparin subcutaneous. 7. We will follow up with Dr. Delgado with critical care , Dr. Chambesr from Nephrology and Dr. Rich Wick from Infectious Disease. 8. We will follow up with the cultures and laboratory in the morning. 9. Levemir and Insulin sliding scale per endocrinology Jose Glasgow MD Aug 03, 2018 19:09
--- NOTE | 2018-08-03 19:12 | NUR ---
NURSE NOTES: HAND-OFF: Report given to Melissa RIVERA. Addendum: 08/03/18 at 1913 by SWETHA DELGADILLO RN Mary RIVERA
--- NOTE | 2018-08-03 19:29 | NUR ---
NURSE NOTES: Patient asleep in bed, no signs of pain, not in respiratory distress. Call light and needs in reach. Bed in lowest position, lock engaged and alarm on. Will continue to monitor.
[2018-08-03] MEDS: Epoetin Alfa-EPBX (NON ESRD)10,000 unit/ml vial SUBQ SCH (20:52)
[2018-08-03] MEDS ORDERED: Epoetin Alfa-EPBX (NON ESRD)10,000 unit/ml vial SUBQ ONE (21:00)
[2018-08-03] MEDS ORDERED: Epogen (for non ESRD use) SUBQ SCH ×3 (21:00)
[2018-08-04 04:50] VITALS: BP 128/67
--- NOTE | 2018-08-04 06:35 | General Progress Note ---
Assessment/Plan Problem List: (1) DKA (diabetic ketoacidoses) ICD Codes: E13.10 - DKA (diabetic ketoacidoses) SNOMED: 82642291 Qualifiers: Qualified Codes: E10.10 - Type 1 diabetes mellitus with ketoacidosis without coma (2) CKD (chronic kidney disease), stage III ICD Codes: N18.3 - CKD (chronic kidney disease), stage III SNOMED: 763473923 (3) encephalopathy due to metabolic do (4) Pulmonary HTN ICD Codes: I27.0 - Pulmonary HTN SNOMED: 43011887 Assessment/Plan reduce Levemir to 9 units bid reduce Novolog to 4 units ac tid NISS ac / hs Subjective Allergies: Coded Allergies: CEFEPIME (Verified Allergy, Intermediate, Rash, 03/01/18) Tolerates Carbapenem All Systems: reviewed and negative except above Subjective events noted hypoglycemia last night Objective Last 24 Hour Vital Signs Date Time Temp Pulse Resp B/P (MAP) Pulse Ox O2 Delivery O2 Flow Rate FiO2 08/04/18 04:50 98.5 80 18 128/67 97 Room Air 08/03/18 21:00 Room Air 08/03/18 20:55 88 20 Room Air 21 08/03/18 16:00 98.0 80 19 127/71 97 Room Air 08/03/18 11:51 97.9 88 20 123/67 96 Room Air 08/03/18 09:13 Room Air 08/03/18 08:07 76 20 Room Air 21 08/03/18 08:00 97.5 90 19 125/67 95 Room Air Intake and Output 08/03/18 08/04/18 18:59 06:59 Intake Total 200 ml Output Total 1100 ml Balance -900 ml Intake Oral 200 ml Output Urine Total 1100 ml Height (Feet): 6 Height (Inches): 0.00 Weight (Pounds): 153 General Appearance: no apparent distress Neck: normal alignment Cardiovascular: normal rate Respiratory/Chest: lungs clear Abdomen: normal bowel sounds Pelvis: normal external exam Objective Current Medications Medications (Trade) Dose Ordered Sig/Dunia Route PRN Reason Start Time Stop Time Status Last Admin Dose Admin Albuterol/ Ipratropium (Albuterol/ Ipratropium) 3 ml Q4H PRN HHN Shortness of Breath 08/03/18 08:30 08/05/18 08:29 Dextrose (Dextrose 50%) 25 ml Q30M PRN IV Hypoglycemia 08/03/18 08:30 08/31/18 07:29 Dextrose (Dextrose 50%) 50 ml Q30M PRN IV Hypoglycemia 08/03/18 08:30 08/31/18 07:29 Duloxetine HCl (Cymbalta) 40 mg DAILY ORAL 08/03/18 09:00 09/02/18 08:59 08/03/18 08:47 Epoetin Jose (Epoetin Jose-EPBX(NON ESRD)) 10,000 unit WED-WED-WED SUBQ 08/03/18 21:00 09/02/18 20:59 08/03/18 20:52 Heparin Sodium (Porcine) (Heparin 5000 units/ml) 5,000 units EVERY 12 HOURS SUBQ 08/03/18 09:00 08/28/18 08:59 08/03/18 20:53 Insulin Aspart (NovoLOG) BEFORE MEALS AND HS SUBQ 08/03/18 11:30 08/31/18 07:29 08/03/18 12:34 Insulin Aspart (NovoLOG) 4 units NOVOTIAC SUBQ 08/04/18 06:30 09/03/18 06:29 Insulin Detemir (Levemir) 9 units BID SUBQ 08/04/18 09:00 09/03/18 08:59 Magnesium Oxide (Mag-Ox 400mg) 400 mg THREE TIMES A DAY ORAL 08/03/18 09:00 09/01/18 09:29 08/03/18 18:09 Pantoprazole (Protonix) 40 mg EVERY 12 HOURS ORAL 08/03/18 09:00 08/31/18 20:59 08/03/18 20:51 Quetiapine Fumarate (SEROquel) 25 mg Q6H PRN ORAL For Anxiety 08/03/18 08:30 08/31/18 08:29 Sevelamer Carbonate (Renvela) 800 mg THREE TIMES A DAY ORAL 08/03/18 09:00 08/28/18 12:59 08/03/18 18:09 Sodium Citrate (Bicitra) 30 ml EVERY 6 HOURS ORAL 08/03/18 12:00 08/28/18 11:59 08/03/18 23:46 Vitamin B Complex/ Vit C/Folic Acid (Nephrovite) 1 tab DAILY ORAL 08/03/18 09:00 08/29/18 08:59 08/03/18 08:47 Item Value Date Time Bedside Blood Glucose 45 mg/dl L 08/03/18 2043 Bedside Blood Glucose 72 mg/dl 08/03/18 1800 Bedside Blood Glucose 271 mg/dl H 08/03/18 1234 Bedside Blood Glucose 203 mg/dl H 08/03/18 1024 Bedside Blood Glucose 203 mg/dl H 08/03/18 0630 Modesto Jacques MD Aug 04, 2018 06:35
[2018-08-04] MEDS: Sodium Citrate 30ml ORAL SCH ×3 (06:38→17:46)
[2018-08-04] MEDS: NovoLOG Insulin Flexpen SUBQ SCH ×7 (06:39→20:56)
--- NOTE | 2018-08-04 06:45 | NUR ---
NURSE NOTES: Dr. Jacques made aware of pt's low blood sugar last night. Obtained new orders and carried out. Novolog pen missing, spoke to pipeline. Customer Manager provided a new pen with new labels for new doses for insulins.
--- NOTE | 2018-08-04 07:25 | NUR ---
HAND-OFF: Report given to NICOLE Diaz. and NICOLE Galloway
--- NOTE | 2018-08-04 07:53 | NUR ---
NURSE NOTES: received report from NICOLE Hernandez. patient in bed, alert, awake, verbally responsive. no respiratory distress noted. no c/o pain at this time. supra pubic cathter intact and draining well. bed in lowest position. call light within reach. will continue to monitor
[2018-08-04 08:00] VITALS: BP 148/81
[2018-08-04] MEDS: Nephrovite tab (Rena-Vite) ORAL SCH (08:35)
[2018-08-04] MEDS: Magnesium Oxide 400mg tab ORAL SCH ×3 (08:35→17:46)
[2018-08-04] MEDS: Heparin 5000 units/ml inj SUBQ SCH ×2 (08:37→20:56)
[2018-08-04] MEDS: Levemir Flexpen SUBQ SCH ×2 (08:37→17:46)
--- NOTE | 2018-08-04 09:03 | Urology Progress Note ---
Assessment/Plan Assessment/Plan 1. Urinary retention. 2. Neurogenic bladder. 3. History of chronic suprapubic tube. 4. BPH history. 5. History of end-stage renal disease. 6. Hematuria. 7. Pyuria. 8. Proteinuria. 9. Renal cysts. monitor clinically keep sp tube, last placed 08/01 hand irrigate PRN abx as ordered recheck urine cx at some point Subjective Allergies: Coded Allergies: CEFEPIME (Verified Allergy, Intermediate, Rash, 03/01/18) Tolerates Carbapenem Subjective all noted, new sp tube draining well Objective Last 24 Hour Vital Signs Date Time Temp Pulse Resp B/P (MAP) Pulse Ox O2 Delivery O2 Flow Rate FiO2 08/04/18 08:00 98.2 85 20 148/81 99 Room Air 08/04/18 04:50 98.5 80 18 128/67 97 Room Air 08/03/18 21:00 Room Air 08/03/18 20:55 88 20 Room Air 21 08/03/18 16:00 98.0 80 19 127/71 97 Room Air 08/03/18 11:51 97.9 88 20 123/67 96 Room Air 08/03/18 09:13 Room Air Intake and Output 08/03/18 08/04/18 18:59 06:59 Intake Total 200 ml Output Total 1100 ml 1900 ml Balance -900 ml -1900 ml Intake Oral 200 ml Output Urine Total 1100 ml 1900 ml # Bowel Movements 1 Microbiology Date/Time Source Procedure Growth Status 07/29/18 05:29 Blood Blood Culture - Final NO GROWTH AFTER 5 DAYS Complete 07/29/18 00:30 Nasal Nares MRSA Culture - Final Staphylococcus Aureus - Mrsa Complete 07/29/18 05:15 Urine,Clean Catch Urine Culture - Final Gram Positive Cocci Complete 07/29/18 00:30 Rectum VRE Culture - Final Enterococcus Faecalis - Vre Enterococcus Faecium - Vre Complete Current Medications Medications (Trade) Dose Ordered Sig/Dunia Route PRN Reason Start Time Stop Time Status Last Admin Dose Admin Albuterol/ Ipratropium (Albuterol/ Ipratropium) 3 ml Q4H PRN HHN Shortness of Breath 08/03/18 08:30 08/05/18 08:29 Dextrose (Dextrose 50%) 25 ml Q30M PRN IV Hypoglycemia 08/03/18 08:30 08/31/18 07:29 Dextrose (Dextrose 50%) 50 ml Q30M PRN IV Hypoglycemia 08/03/18 08:30 08/31/18 07:29 Duloxetine HCl (Cymbalta) 40 mg DAILY ORAL 08/03/18 09:00 09/02/18 08:59 08/04/18 08:35 Epoetin Jose (Epoetin Jose-EPBX(NON ESRD)) 10,000 unit WED-WED-WED SUBQ 08/03/18 21:00 09/02/18 20:59 08/03/18 20:52 Heparin Sodium (Porcine) (Heparin 5000 units/ml) 5,000 units EVERY 12 HOURS SUBQ 08/03/18 09:00 08/28/18 08:59 08/04/18 08:37 Insulin Aspart (NovoLOG) BEFORE MEALS AND HS SUBQ 08/03/18 11:30 08/31/18 07:29 08/04/18 06:42 Insulin Aspart (NovoLOG) 4 units NOVOTIAC SUBQ 08/04/18 06:30 09/03/18 06:29 08/04/18 06:39 Insulin Detemir (Levemir) 9 units BID SUBQ 08/04/18 09:00 09/03/18 08:59 08/04/18 08:37 Magnesium Oxide (Mag-Ox 400mg) 400 mg THREE TIMES A DAY ORAL 08/03/18 09:00 09/01/18 09:29 08/04/18 08:35 Pantoprazole (Protonix) 40 mg EVERY 12 HOURS ORAL 08/03/18 09:00 08/31/18 20:59 08/04/18 08:35 Quetiapine Fumarate (SEROquel) 25 mg Q6H PRN ORAL For Anxiety 08/03/18 08:30 08/31/18 08:29 Sevelamer Carbonate (Renvela) 800 mg THREE TIMES A DAY ORAL 08/03/18 09:00 08/28/18 12:59 08/04/18 08:35 Sodium Citrate (Bicitra) 30 ml EVERY 6 HOURS ORAL 08/03/18 12:00 08/28/18 11:59 08/04/18 06:38 Vitamin B Complex/ Vit C/Folic Acid (Nephrovite) 1 tab DAILY ORAL 08/03/18 09:00 08/29/18 08:59 08/04/18 08:35 Height (Feet): 6 Height (Inches): 0.00 Weight (Pounds): 153 Objective exam stable Ye Rios MD Aug 04, 2018 09:03
[2018-08-04 09:59] LABS: EOSINOPHILS % (AUTO) 8.8 % (0.0-3.0); HEMATOCRIT 26.1 % (42.0-52.0); HEMOGLOBIN 8.5 G/DL (14.2-18.0); LYMPHOCYTES % (AUTO) 29.5 % (20.0-45.0); MEAN CORPUSCULAR VOLUME 92 FL (80-99); MONOCYTES % (AUTO) 11.4 % (1.0-10.0); NEUTROPHILS % (AUTO) 49.3 % (45.0-75.0); PLATELET COUNT 224 K/UL (150-450); RED BLOOD COUNT 2.84 M/UL (4.70-6.10); RED CELL DISTRIBUTION WIDTH 14.2 % (11.6-14.8); WHITE BLOOD COUNT 4.7 K/UL (4.8-10.8)
[2018-08-04 10:11] LABS: ANION GAP 10 mmol/L (5-15); BLOOD UREA NITROGEN 57 mg/dL (7-18); CALCIUM 8.1 MG/DL (8.5-10.1); CARBON DIOXIDE 24 MMOL/L (21-32); CHLORIDE 106 MMOL/L (98-107); CREATININE 5.5 MG/DL (0.55-1.30); POTASSIUM 3.8 MMOL/L (3.5-5.1); SODIUM 140 MMOL/L (136-145)
--- NOTE | 2018-08-04 11:57 | General Progress Note ---
Assessment/Plan Problem List: (1) encephalopathy due to metabolic do (2) Major depressive disorder ICD Codes: F32.9 - Major depressive disorder, single episode, unspecified SNOMED: 795310246 Status: stable, progressing Assessment/Plan cont Cymbalta 40mg qam seroquel 25mg q6hr prn agitation provided ro/st Subjective Neurologic/Psychiatric: Reports: anxiety, depressed Allergies: Coded Allergies: CEFEPIME (Verified Allergy, Intermediate, Rash, 03/01/18) Tolerates Carbapenem Subjective the pt is more engaged denied si/hi still disoriented. Objective Last 24 Hour Vital Signs Date Time Temp Pulse Resp B/P (MAP) Pulse Ox O2 Delivery O2 Flow Rate FiO2 08/04/18 09:00 Room Air 08/04/18 08:00 98.2 85 20 148/81 99 Room Air 08/04/18 04:50 98.5 80 18 128/67 97 Room Air 08/03/18 21:00 Room Air 08/03/18 20:55 88 20 Room Air 21 08/03/18 16:00 98.0 80 19 127/71 97 Room Air Intake and Output 08/03/18 08/04/18 19:00 07:00 Intake Total 200 ml Output Total 1100 ml 1900 ml Balance -900 ml -1900 ml Intake Oral 200 ml Output Urine Total 1100 ml 1900 ml # Bowel Movements 1 Laboratory Tests 08/04/18 09:20: White Blood Count 4.7L, Red Blood Count 2.84L, Hemoglobin 8.5L, Hematocrit 26.1L , Mean Corpuscular Volume 92, Mean Corpuscular Hemoglobin 29.9, Mean Corpuscular Hemoglobin Concent 32.6, Red Cell Distribution Width 14.2, Platelet Count 224, Mean Platelet Volume 7.6, Neutrophils (%) (Auto) 49.3, Lymphocytes (% ) (Auto) 29.5, Monocytes (%) (Auto) 11.4H, Eosinophils (%) (Auto) 8.8H, Basophils (%) (Auto) 1.0, Sodium Level 140, Potassium Level 3.8, Chloride Level 106, Carbon Dioxide Level 24, Anion Gap 10, Blood Urea Nitrogen 57H, Creatinine 5.5H, Estimat Glomerular Filtration Rate 10.5, Glucose Level 119H, Calcium Level 8.1L Height (Feet): 6 Height (Inches): 0.00 Weight (Pounds): 153 General Appearance: no apparent distress, alert Neurologic: depressed affect Fatmata Lu MD Aug 04, 2018 11:57
[2018-08-04 12:00] VITALS: BP 147/87
--- NOTE | 2018-08-04 12:25 | Infectious Diseases Prog Note ---
Assessment/Plan Assessment/Plan Assessment: Severe sepsis -likely 2ry to UTI- SP, s/p rx -u.a wbc tntc, nit neg, luek +3; ucx <10k GPC -Bcx Neg -CXR: Suspected atelectasis or scarring right Afebrile Leukocytosis, SP DKA RIVKA, improving hx of recent sepsis 2ry to UTI and bacteremia 07/08/18 UCx - P.a. MDR and Providencia 07/08/18 BCx ESBL Proteus and K. pneumo Dm2 HLD MDD with suicidal attempts in the past w/ resultant chronic encephalopathy CAD/MS BPH anemia asthma colonic polyps ESRD s/p renal and pancreas tx ~10 yrs ago now CKD 4 ConS bacteremia/line infection urinary retention s/p suprapubic catheter 09/2017 recurrent hematuria multiple hospital admissions recurrent UTI DNR Plan: - Cont to monitor off abx -08/02 SP Meropenem d# 5 07/29 SP one dose Amikacin -07/22 SP Meropenem, #14 - f/u cx -Monitor CBC/CMP, temperatures Subjective Allergies: Coded Allergies: CEFEPIME (Verified Allergy, Intermediate, Rash, 03/01/18) Tolerates Carbapenem Subjective afebrile no leukocytosis Bcx Neg Objective Vital Signs Last 24 Hour Vital Signs Date Time Temp Pulse Resp B/P (MAP) Pulse Ox O2 Delivery O2 Flow Rate FiO2 08/04/18 09:00 Room Air 08/04/18 08:00 98.2 85 20 148/81 99 Room Air 08/04/18 04:50 98.5 80 18 128/67 97 Room Air 08/03/18 21:00 Room Air 08/03/18 20:55 88 20 Room Air 21 08/03/18 16:00 98.0 80 19 127/71 97 Room Air Height (Feet): 6 Height (Inches): 0.00 Weight (Pounds): 153 Objective Status: awake Condition: critical HEENT: atraumatic Lungs: chest wall tender Heart: HR/BP stable Abdomen: soft, non-tender Extremities: no C/C/E Decubiti: location Laboratory Tests Test 08/04/18 09:20 White Blood Count 4.7 K/UL (4.8-10.8) L Red Blood Count 2.84 M/UL (4.70-6.10) L Hemoglobin 8.5 G/DL (14.2-18.0) L Hematocrit 26.1 % (42.0-52.0) L Mean Corpuscular Volume 92 FL (80-99) Mean Corpuscular Hemoglobin 29.9 PG (27.0-31.0) Mean Corpuscular Hemoglobin Concent 32.6 G/DL (32.0-36.0) Red Cell Distribution Width 14.2 % (11.6-14.8) Platelet Count 224 K/UL (150-450) Mean Platelet Volume 7.6 FL (6.5-10.1) Neutrophils (%) (Auto) 49.3 % (45.0-75.0) Lymphocytes (%) (Auto) 29.5 % (20.0-45.0) Monocytes (%) (Auto) 11.4 % (1.0-10.0) H Eosinophils (%) (Auto) 8.8 % (0.0-3.0) H Basophils (%) (Auto) 1.0 % (0.0-2.0) Sodium Level 140 MMOL/L (136-145) Potassium Level 3.8 MMOL/L (3.5-5.1) Chloride Level 106 MMOL/L (98-107) Carbon Dioxide Level 24 MMOL/L (21-32) Anion Gap 10 mmol/L (5-15) Blood Urea Nitrogen 57 mg/dL (7-18) H Creatinine 5.5 MG/DL (0.55-1.30) H Estimat Glomerular Filtration Rate 10.5 mL/min (>60) Glucose Level 119 MG/DL (74-106) H Calcium Level 8.1 MG/DL (8.5-10.1) L Current Medications Medications (Trade) Dose Ordered Sig/Dunia Route PRN Reason Start Time Stop Time Status Last Admin Dose Admin Albuterol/ Ipratropium (Albuterol/ Ipratropium) 3 ml Q4H PRN HHN Shortness of Breath 08/03/18 08:30 08/05/18 08:29 Dextrose (Dextrose 50%) 25 ml Q30M PRN IV Hypoglycemia 08/03/18 08:30 08/31/18 07:29 Dextrose (Dextrose 50%) 50 ml Q30M PRN IV Hypoglycemia 08/03/18 08:30 08/31/18 07:29 Duloxetine HCl (Cymbalta) 40 mg DAILY ORAL 08/03/18 09:00 09/02/18 08:59 08/04/18 08:35 Epoetin Jose (Epoetin Jose-EPBX(NON ESRD)) 10,000 unit WED-WED-WED SUBQ 08/03/18 21:00 09/02/18 20:59 08/03/18 20:52 Heparin Sodium (Porcine) (Heparin 5000 units/ml) 5,000 units EVERY 12 HOURS SUBQ 08/03/18 09:00 08/28/18 08:59 08/04/18 08:37 Insulin Aspart (NovoLOG) BEFORE MEALS AND HS SUBQ 08/03/18 11:30 08/31/18 07:29 08/04/18 06:42 Insulin Aspart (NovoLOG) 4 units NOVOTIAC SUBQ 08/04/18 06:30 09/03/18 06:29 08/04/18 06:39 Insulin Detemir (Levemir) 9 units BID SUBQ 08/04/18 09:00 09/03/18 08:59 08/04/18 08:37 Magnesium Oxide (Mag-Ox 400mg) 400 mg THREE TIMES A DAY ORAL 08/03/18 09:00 09/01/18 09:29 08/04/18 08:35 Pantoprazole (Protonix) 40 mg EVERY 12 HOURS ORAL 08/03/18 09:00 08/31/18 20:59 08/04/18 08:35 Quetiapine Fumarate (SEROquel) 25 mg Q6H PRN ORAL For Anxiety 08/03/18 08:30 08/31/18 08:29 Sevelamer Carbonate (Renvela) 800 mg THREE TIMES A DAY ORAL 08/03/18 09:00 08/28/18 12:59 08/04/18 08:35 Sodium Citrate (Bicitra) 30 ml EVERY 6 HOURS ORAL 08/03/18 12:00 08/28/18 11:59 08/04/18 06:38 Vitamin B Complex/ Vit C/Folic Acid (Nephrovite) 1 tab DAILY ORAL 08/03/18 09:00 08/29/18 08:59 08/04/18 08:35 Monique Read M.D. Aug 04, 2018 12:24
--- NOTE | 2018-08-04 12:50 | NUR ---
*-* DISCHARGE PLANNING *-* PATIENT HAS BEEN REFERRED TO: [facility] P:[phone] F:[phone]
--- NOTE | 2018-08-04 14:02 | Pulmonology Progress Note ---
Assessment/Plan Problems: (1) Encephalopathy acute (2) DKA (diabetic ketoacidoses) (3) Anemia in chronic kidney disease (4) CKD (chronic kidney disease), stage III (5) Major depressive disorder (6) Bladder outlet obstruction (7) Suprapubic catheter Assessment/Plan doing better no new complains Bs better controlled Acidosis improving Add epogen for anemia pt refusing HD check electrolytes continue DNR dvt prophylaxis All medications and treatment were reviewed.med recon done, dc to intermediate today Subjective ROS Limited/Unobtainable: No Constitutional: Reports: no symptoms Allergies: Coded Allergies: CEFEPIME (Verified Allergy, Intermediate, Rash, 03/01/18) Tolerates Carbapenem Objective Last 24 Hour Vital Signs Date Time Temp Pulse Resp B/P (MAP) Pulse Ox O2 Delivery O2 Flow Rate FiO2 08/04/18 12:00 98.1 94 20 147/87 99 Room Air 08/04/18 09:00 Room Air 08/04/18 08:00 98.2 85 20 148/81 99 Room Air 08/04/18 04:50 98.5 80 18 128/67 97 Room Air 08/03/18 21:00 Room Air 08/03/18 20:55 88 20 Room Air 21 08/03/18 16:00 98.0 80 19 127/71 97 Room Air Intake and Output 08/03/18 08/04/18 19:00 07:00 Intake Total 200 ml Output Total 1100 ml 1900 ml Balance -900 ml -1900 ml Intake Oral 200 ml Output Urine Total 1100 ml 1900 ml # Bowel Movements 1 Objective General Appearance: WD/WN HEENT: normocephalic, atraumatic, anicteric Respiratory/Chest: chest wall non-tender, lungs clear Breasts: no masses Cardiovascular: normal peripheral pulses, normal rate Abdomen: normal bowel sounds, soft, non tender Extremities: no cyanosis Skin: no rash Neurologic/Psychiatric: wash barrel leader II-XII grossly normal Lymphatic: no neck adenopathy Laboratory Tests 08/04/18 09:20: White Blood Count 4.7L, Red Blood Count 2.84L, Hemoglobin 8.5L, Hematocrit 26.1L , Mean Corpuscular Volume 92, Mean Corpuscular Hemoglobin 29.9, Mean Corpuscular Hemoglobin Concent 32.6, Red Cell Distribution Width 14.2, Platelet Count 224, Mean Platelet Volume 7.6, Neutrophils (%) (Auto) 49.3, Lymphocytes (% ) (Auto) 29.5, Monocytes (%) (Auto) 11.4H, Eosinophils (%) (Auto) 8.8H, Basophils (%) (Auto) 1.0, Sodium Level 140, Potassium Level 3.8, Chloride Level 106, Carbon Dioxide Level 24, Anion Gap 10, Blood Urea Nitrogen 57H, Creatinine 5.5H, Estimat Glomerular Filtration Rate 10.5, Glucose Level 119H, Calcium Level 8.1L Current Medications Medications (Trade) Dose Ordered Sig/Dunia Route PRN Reason Start Time Stop Time Status Last Admin Dose Admin Albuterol/ Ipratropium (Albuterol/ Ipratropium) 3 ml Q4H PRN HHN Shortness of Breath 08/03/18 08:30 08/05/18 08:29 Dextrose (Dextrose 50%) 25 ml Q30M PRN IV Hypoglycemia 08/03/18 08:30 08/31/18 07:29 Dextrose (Dextrose 50%) 50 ml Q30M PRN IV Hypoglycemia 08/03/18 08:30 08/31/18 07:29 Duloxetine HCl (Cymbalta) 40 mg DAILY ORAL 08/03/18 09:00 09/02/18 08:59 08/04/18 08:35 Epoetin Jose (Epoetin Jose-EPBX(NON ESRD)) 10,000 unit WED-WED-WED SUBQ 08/03/18 21:00 09/02/18 20:59 08/03/18 20:52 Heparin Sodium (Porcine) (Heparin 5000 units/ml) 5,000 units EVERY 12 HOURS SUBQ 08/03/18 09:00 08/28/18 08:59 08/04/18 08:37 Insulin Aspart (NovoLOG) BEFORE MEALS AND HS SUBQ 08/03/18 11:30 08/31/18 07:29 08/04/18 06:42 Insulin Aspart (NovoLOG) 4 units NOVOTIAC SUBQ 08/04/18 06:30 09/03/18 06:29 08/04/18 06:39 Insulin Detemir (Levemir) 9 units BID SUBQ 08/04/18 09:00 09/03/18 08:59 08/04/18 08:37 Magnesium Oxide (Mag-Ox 400mg) 400 mg THREE TIMES A DAY ORAL 08/03/18 09:00 09/01/18 09:29 08/04/18 12:37 Pantoprazole (Protonix) 40 mg EVERY 12 HOURS ORAL 08/03/18 09:00 08/31/18 20:59 08/04/18 08:35 Quetiapine Fumarate (SEROquel) 25 mg Q6H PRN ORAL For Anxiety 08/03/18 08:30 08/31/18 08:29 Sevelamer Carbonate (Renvela) 800 mg THREE TIMES A DAY ORAL 08/03/18 09:00 08/28/18 12:59 08/04/18 12:37 Sodium Citrate (Bicitra) 30 ml EVERY 6 HOURS ORAL 08/03/18 12:00 08/28/18 11:59 08/04/18 12:00 Vitamin B Complex/ Vit C/Folic Acid (Nephrovite) 1 tab DAILY ORAL 08/03/18 09:00 08/29/18 08:59 08/04/18 08:35 Esdras Delgado MD Aug 04, 2018 14:02
--- NOTE | 2018-08-04 15:48 | Nephrology Progress Note ---
Assessment/Plan Problem List: (1) Bladder outlet obstruction (2) Acute on chronic renal failure (3) Anemia in chronic kidney disease (4) BPH (benign prostatic hypertrophy) (5) DKA (diabetic ketoacidoses) (6) Encephalopathy acute Assessment ESRD , in need of dialysis , refuses- presents with high K Encephalopathy , Metabolic Acidosis , Uremic and Diabetic Sever Anemia: Mixed etiology HTn, but presents with low BP Supra Pubic Cath, h/o UTI, BPH Psych disease CAD, elevated Troponin I s/p DKAs Plan DC IV Bicarb Transfuse as needed Sugar control will do poorly in view of no dialysis plans DNR per orders Subjective ROS Limited/Unobtainable: No Constitutional: Reports: malaise Objective Objective Last 24 Hour Vital Signs Date Time Temp Pulse Resp B/P (MAP) Pulse Ox O2 Delivery O2 Flow Rate FiO2 08/04/18 12:00 98.1 94 20 147/87 99 Room Air 08/04/18 09:00 Room Air 08/04/18 08:00 98.2 85 20 148/81 99 Room Air 08/04/18 04:50 98.5 80 18 128/67 97 Room Air 08/03/18 21:00 Room Air 08/03/18 20:55 88 20 Room Air 21 08/03/18 16:00 98.0 80 19 127/71 97 Room Air Intake and Output 08/03/18 08/04/18 19:00 07:00 Intake Total 200 ml Output Total 1100 ml 1900 ml Balance -900 ml -1900 ml Intake Oral 200 ml Output Urine Total 1100 ml 1900 ml # Bowel Movements 1 Current Medications Medications (Trade) Dose Ordered Sig/Dunia Route PRN Reason Start Time Stop Time Status Last Admin Dose Admin Albuterol/ Ipratropium (Albuterol/ Ipratropium) 3 ml Q4H PRN HHN Shortness of Breath 08/03/18 08:30 08/05/18 08:29 Dextrose (Dextrose 50%) 25 ml Q30M PRN IV Hypoglycemia 08/03/18 08:30 08/31/18 07:29 Dextrose (Dextrose 50%) 50 ml Q30M PRN IV Hypoglycemia 08/03/18 08:30 08/31/18 07:29 Duloxetine HCl (Cymbalta) 40 mg DAILY ORAL 08/03/18 09:00 09/02/18 08:59 08/04/18 08:35 Epoetin Jose (Epoetin Jose-EPBX(NON ESRD)) 10,000 unit WED-WED-WED SUBQ 08/03/18 21:00 09/02/18 20:59 08/03/18 20:52 Heparin Sodium (Porcine) (Heparin 5000 units/ml) 5,000 units EVERY 12 HOURS SUBQ 08/03/18 09:00 08/28/18 08:59 08/04/18 08:37 Insulin Aspart (NovoLOG) BEFORE MEALS AND HS SUBQ 08/03/18 11:30 08/31/18 07:29 08/04/18 06:42 Insulin Aspart (NovoLOG) 4 units NOVOTIAC SUBQ 08/04/18 06:30 09/03/18 06:29 08/04/18 06:39 Insulin Detemir (Levemir) 9 units BID SUBQ 08/04/18 09:00 09/03/18 08:59 08/04/18 08:37 Magnesium Oxide (Mag-Ox 400mg) 400 mg THREE TIMES A DAY ORAL 08/03/18 09:00 09/01/18 09:29 08/04/18 12:37 Pantoprazole (Protonix) 40 mg EVERY 12 HOURS ORAL 08/03/18 09:00 08/31/18 20:59 08/04/18 08:35 Quetiapine Fumarate (SEROquel) 25 mg Q6H PRN ORAL For Anxiety 08/03/18 08:30 08/31/18 08:29 Sevelamer Carbonate (Renvela) 800 mg THREE TIMES A DAY ORAL 08/03/18 09:00 08/28/18 12:59 08/04/18 12:37 Sodium Citrate (Bicitra) 30 ml EVERY 6 HOURS ORAL 08/03/18 12:00 08/28/18 11:59 08/04/18 12:00 Vitamin B Complex/ Vit C/Folic Acid (Nephrovite) 1 tab DAILY ORAL 08/03/18 09:00 08/29/18 08:59 08/04/18 08:35 Laboratory Tests 08/04/18 09:20: White Blood Count 4.7L, Red Blood Count 2.84L, Hemoglobin 8.5L, Hematocrit 26.1L , Mean Corpuscular Volume 92, Mean Corpuscular Hemoglobin 29.9, Mean Corpuscular Hemoglobin Concent 32.6, Red Cell Distribution Width 14.2, Platelet Count 224, Mean Platelet Volume 7.6, Neutrophils (%) (Auto) 49.3, Lymphocytes (% ) (Auto) 29.5, Monocytes (%) (Auto) 11.4H, Eosinophils (%) (Auto) 8.8H, Basophils (%) (Auto) 1.0, Sodium Level 140, Potassium Level 3.8, Chloride Level 106, Carbon Dioxide Level 24, Anion Gap 10, Blood Urea Nitrogen 57H, Creatinine 5.5H, Estimat Glomerular Filtration Rate 10.5, Glucose Level 119H, Calcium Level 8.1L Height (Feet): 6 Height (Inches): 0.00 Weight (Pounds): 153 General Appearance: no apparent distress, lethargic Cardiovascular: tachycardia Respiratory/Chest: decreased breath sounds Abdomen: soft Objective no change Luis Chambers MD Aug 04, 2018 15:48
[2018-08-04 16:00] VITALS: BP 129/77
--- NOTE | 2018-08-04 17:12 | Internal Med Progress Note ---
Subjective Date of Service: Aug 04, 2018 Physician Name Jose Glasgow Attending Physician Christopher Rosado MD Current Medications Medications (Trade) Dose Ordered Sig/Dunia Route PRN Reason Start Time Stop Time Status Last Admin Dose Admin Albuterol/ Ipratropium (Albuterol/ Ipratropium) 3 ml Q4H PRN HHN Shortness of Breath 08/03/18 08:30 08/05/18 08:29 Dextrose (Dextrose 50%) 25 ml Q30M PRN IV Hypoglycemia 08/03/18 08:30 08/31/18 07:29 Dextrose (Dextrose 50%) 50 ml Q30M PRN IV Hypoglycemia 08/03/18 08:30 08/31/18 07:29 Duloxetine HCl (Cymbalta) 40 mg DAILY ORAL 08/03/18 09:00 09/02/18 08:59 08/04/18 08:35 Epoetin Jose (Epoetin Jose-EPBX(NON ESRD)) 10,000 unit WED-WED-WED SUBQ 08/03/18 21:00 09/02/18 20:59 08/03/18 20:52 Heparin Sodium (Porcine) (Heparin 5000 units/ml) 5,000 units EVERY 12 HOURS SUBQ 08/03/18 09:00 08/28/18 08:59 08/04/18 08:37 Insulin Aspart (NovoLOG) BEFORE MEALS AND HS SUBQ 08/03/18 11:30 08/31/18 07:29 08/04/18 06:42 Insulin Aspart (NovoLOG) 4 units NOVOTIAC SUBQ 08/04/18 06:30 09/03/18 06:29 08/04/18 06:39 Insulin Detemir (Levemir) 9 units BID SUBQ 08/04/18 09:00 09/03/18 08:59 08/04/18 08:37 Magnesium Oxide (Mag-Ox 400mg) 400 mg THREE TIMES A DAY ORAL 08/03/18 09:00 09/01/18 09:29 08/04/18 12:37 Pantoprazole (Protonix) 40 mg EVERY 12 HOURS ORAL 08/03/18 09:00 08/31/18 20:59 08/04/18 08:35 Quetiapine Fumarate (SEROquel) 25 mg Q6H PRN ORAL For Anxiety 08/03/18 08:30 08/31/18 08:29 Sevelamer Carbonate (Renvela) 800 mg THREE TIMES A DAY ORAL 08/03/18 09:00 08/28/18 12:59 08/04/18 12:37 Sodium Citrate (Bicitra) 30 ml EVERY 6 HOURS ORAL 08/03/18 12:00 08/28/18 11:59 08/04/18 12:00 Vitamin B Complex/ Vit C/Folic Acid (Nephrovite) 1 tab DAILY ORAL 08/03/18 09:00 08/29/18 08:59 08/04/18 08:35 Allergies: Coded Allergies: CEFEPIME (Verified Allergy, Intermediate, Rash, 03/01/18) Tolerates Carbapenem ROS Limited/Unobtainable: No Constitutional: Reports: no symptoms HEENT: Reports: no symptoms Cardiovascular: Reports: no symptoms Respiratory: Reports: no symptoms Gastrointestinal/Abdominal: Reports: no symptoms Genitourinary: Reports: no symptoms Neurologic/Psychiatric: Reports: no symptoms Subjective 63 YO M with history of diabetes I admitted with hyperglycemia and DKA. Cover for Int Med-Dr Rosado. Await acceptance to [facility] Objective Last Vital Signs Date Time Temp Pulse Resp B/P (MAP) Pulse Ox O2 Delivery O2 Flow Rate FiO2 08/04/18 16:00 97.1 71 20 129/77 96 Room Air 08/03/18 20:55 21 Laboratory Tests Test 08/04/18 09:20 White Blood Count 4.7 K/UL (4.8-10.8) L Red Blood Count 2.84 M/UL (4.70-6.10) L Hemoglobin 8.5 G/DL (14.2-18.0) L Hematocrit 26.1 % (42.0-52.0) L Mean Corpuscular Volume 92 FL (80-99) Mean Corpuscular Hemoglobin 29.9 PG (27.0-31.0) Mean Corpuscular Hemoglobin Concent 32.6 G/DL (32.0-36.0) Red Cell Distribution Width 14.2 % (11.6-14.8) Platelet Count 224 K/UL (150-450) Mean Platelet Volume 7.6 FL (6.5-10.1) Neutrophils (%) (Auto) 49.3 % (45.0-75.0) Lymphocytes (%) (Auto) 29.5 % (20.0-45.0) Monocytes (%) (Auto) 11.4 % (1.0-10.0) H Eosinophils (%) (Auto) 8.8 % (0.0-3.0) H Basophils (%) (Auto) 1.0 % (0.0-2.0) Sodium Level 140 MMOL/L (136-145) Potassium Level 3.8 MMOL/L (3.5-5.1) Chloride Level 106 MMOL/L (98-107) Carbon Dioxide Level 24 MMOL/L (21-32) Anion Gap 10 mmol/L (5-15) Blood Urea Nitrogen 57 mg/dL (7-18) H Creatinine 5.5 MG/DL (0.55-1.30) H Estimat Glomerular Filtration Rate 10.5 mL/min (>60) Glucose Level 119 MG/DL (74-106) H Calcium Level 8.1 MG/DL (8.5-10.1) L Intake and Output 08/03/18 08/04/18 19:00 07:00 Intake Total 200 ml Output Total 1100 ml 1900 ml Balance -900 ml -1900 ml Intake Oral 200 ml Output Urine Total 1100 ml 1900 ml # Bowel Movements 1 Objective GENERAL: The patient is awake and responsive but confused, in no acute distress. HEAD AND NECK: Pupils are equal and reactive to light. Extraocular movements are intact in the right eye. Left eye blindness, Neck was supple. No JVD. LUNGS: fair air entry. No wheezing or rales. HEART: S1 and S2. Distant heart sounds. No Murmur or gallops. ABDOMEN: Soft, nontender, and nontender. Suprapubic catheter was noted. EXTREMITIES: No cyanosis or clubbing. Bilateral lower extremity trace LE's edema. NEUROLOGIC: Cranial nerves II through XII grossly intact. Motor is 5/5 in all extremities. Gait was not assessed due to the patient's status. Assessment/Plan Assessment/Plan ASSESSMENT: 1. DKA. 2. Hypertension. 3. Dyslipidemia. 4. Diabetes type 1 with prior history of diabetic ketoacidosis. 5. Diabetic retinopathy of the left eye blindness. 6. End-stage renal disease secondary to diabetic nephrosclerosis. 7. Coronary artery disease with prior history of myocardial infarction. 8. 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 9. 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 10. Secondary hyperparathyroidism with vitamin D deficiency. 11. Anemia of chronic kidney disease. 12. Metabolic acidosis. 13. Depression with prior suicide attempt. 14. Acute encephalopathy due to toxic metabolic encephalopathy due to DKA. PLAN: 1. Med/surg 2. Code status is DNR/DNI as per POLST in the chart. 3. Resume residential medications. 4. Follow up with Labs and culture. 5. Broad spectrum antibiotic with Meropenem. 6. DVT prophylaxis, heparin subcutaneous. 7. We will follow up with Dr. Delgado with critical care , Dr. Chambers from Nephrology and Dr. Rich Wick from Infectious Disease. 8. We will follow up with the cultures and laboratory in the morning. 9. Levemir and Insulin sliding scale per endocrinology 10. Discharge planning: [facility] when bed available. Jose Glasgow MD Aug 04, 2018 17:12
--- NOTE | 2018-08-04 19:09 | NUR ---
HAND-OFF: Report given to NICOLE Hernandez.
--- NOTE | 2018-08-04 19:30 | NUR ---
NURSE NOTES: Patient asleep in bed, no signs of respiratory distress, no complaints of pain. Call light and needs in reach. Bed in lowest position, lock engaged and alarm on. Will continue to monitor.
[2018-08-04 20:00] VITALS: BP 115/62
[2018-08-05] VITALS: BP 146/91
[2018-08-05 04:00] VITALS: BP 129/63
--- NOTE | 2018-08-05 06:22 | General Progress Note ---
Assessment/Plan Problem List: (1) DKA (diabetic ketoacidoses) ICD Codes: E13.10 - DKA (diabetic ketoacidoses) SNOMED: 94282914 Qualifiers: Qualified Codes: E10.10 - Type 1 diabetes mellitus with ketoacidosis without coma (2) CKD (chronic kidney disease), stage III ICD Codes: N18.3 - CKD (chronic kidney disease), stage III SNOMED: 427412953 (3) encephalopathy due to metabolic do (4) Pulmonary HTN ICD Codes: I27.0 - Pulmonary HTN SNOMED: 07292577 Assessment/Plan continue Levemir 9 units bid continue Novolog 4 units ac tid NISS ac / hs Subjective Allergies: Coded Allergies: CEFEPIME (Verified Allergy, Intermediate, Rash, 03/01/18) Tolerates Carbapenem All Systems: reviewed and negative except above Subjective events noted glycemic control improved Objective Last 24 Hour Vital Signs Date Time Temp Pulse Resp B/P (MAP) Pulse Ox O2 Delivery O2 Flow Rate FiO2 08/05/18 03:29 76 20 Room Air 21 08/05/18 00:00 98.1 67 18 146/91 98 Room Air 08/04/18 21:00 Room Air 08/04/18 20:00 98.3 86 18 115/62 96 Room Air 08/04/18 16:00 97.1 71 20 129/77 96 Room Air 08/04/18 12:00 98.1 94 20 147/87 99 Room Air 08/04/18 09:00 Room Air 08/04/18 08:00 98.2 85 20 148/81 99 Room Air Intake and Output 08/04/18 08/05/18 19:00 07:00 Intake Total 600 ml Output Total 1500 ml Balance -900 ml Intake Oral 600 ml Output Urine Total 1500 ml Laboratory Tests 08/04/18 09:20: White Blood Count 4.7L, Red Blood Count 2.84L, Hemoglobin 8.5L, Hematocrit 26.1L , Mean Corpuscular Volume 92, Mean Corpuscular Hemoglobin 29.9, Mean Corpuscular Hemoglobin Concent 32.6, Red Cell Distribution Width 14.2, Platelet Count 224, Mean Platelet Volume 7.6, Neutrophils (%) (Auto) 49.3, Lymphocytes (% ) (Auto) 29.5, Monocytes (%) (Auto) 11.4H, Eosinophils (%) (Auto) 8.8H, Basophils (%) (Auto) 1.0, Sodium Level 140, Potassium Level 3.8, Chloride Level 106, Carbon Dioxide Level 24, Anion Gap 10, Blood Urea Nitrogen 57H, Creatinine 5.5H, Estimat Glomerular Filtration Rate 10.5, Glucose Level 119H, Calcium Level 8.1L Height (Feet): 6 Height (Inches): 0.00 Weight (Pounds): 153 General Appearance: no apparent distress Neck: normal alignment Cardiovascular: normal rate Respiratory/Chest: normal breath sounds Abdomen: normal bowel sounds Pelvis: normal external exam Objective Current Medications Medications (Trade) Dose Ordered Sig/Dunia Route PRN Reason Start Time Stop Time Status Last Admin Dose Admin Albuterol/ Ipratropium (Albuterol/ Ipratropium) 3 ml Q4H PRN HHN Shortness of Breath 08/03/18 08:30 08/05/18 08:29 Dextrose (Dextrose 50%) 25 ml Q30M PRN IV Hypoglycemia 08/03/18 08:30 08/31/18 07:29 Dextrose (Dextrose 50%) 50 ml Q30M PRN IV Hypoglycemia 08/03/18 08:30 08/31/18 07:29 Duloxetine HCl (Cymbalta) 40 mg DAILY ORAL 08/03/18 09:00 09/02/18 08:59 08/04/18 08:35 Epoetin Jose (Epoetin Jose-EPBX(NON ESRD)) 10,000 unit MON-WED-FRI SUBQ 08/03/18 21:00 09/02/18 20:59 08/03/18 20:52 Heparin Sodium (Porcine) (Heparin 5000 units/ml) 5,000 units EVERY 12 HOURS SUBQ 08/03/18 09:00 08/28/18 08:59 08/04/18 20:56 Insulin Aspart (NovoLOG) BEFORE MEALS AND HS SUBQ 08/03/18 11:30 08/31/18 07:29 08/04/18 06:42 Insulin Aspart (NovoLOG) 4 units NOVOTIAC SUBQ 08/04/18 06:30 09/03/18 06:29 08/04/18 06:39 Insulin Detemir (Levemir) 9 units BID SUBQ 08/04/18 09:00 09/03/18 08:59 08/04/18 17:46 Magnesium Oxide (Mag-Ox 400mg) 400 mg THREE TIMES A DAY ORAL 08/03/18 09:00 09/01/18 09:29 08/04/18 17:46 Pantoprazole (Protonix) 40 mg EVERY 12 HOURS ORAL 08/03/18 09:00 08/31/18 20:59 08/04/18 20:53 Quetiapine Fumarate (SEROquel) 25 mg Q6H PRN ORAL For Anxiety 08/03/18 08:30 08/31/18 08:29 Sevelamer Carbonate (Renvela) 800 mg THREE TIMES A DAY ORAL 08/03/18 09:00 08/28/18 12:59 08/04/18 17:46 Sodium Citrate (Bicitra) 30 ml EVERY 6 HOURS ORAL 08/03/18 12:00 08/28/18 11:59 08/05/18 00:00 Vitamin B Complex/ Vit C/Folic Acid (Nephrovite) 1 tab DAILY ORAL 08/03/18 09:00 08/29/18 08:59 08/04/18 08:35 Item Value Date Time Bedside Blood Glucose 111 mg/dl 08/04/18 2100 Bedside Blood Glucose 113 mg/dl 08/04/18 1746 Bedside Blood Glucose 124 mg/dl H 08/04/18 1150 Bedside Blood Glucose 93 mg/dl 08/04/18 0837 Bedside Blood Glucose 122 mg/dl H 08/04/18 0642 [place] Jacques MD Aug 05, 2018 06:22
[2018-08-05] MEDS: Sodium Citrate 30ml ORAL SCH ×4 (06:28→18:09)
[2018-08-05] MEDS: NovoLOG Insulin Flexpen SUBQ SCH ×7 (06:31→21:10)
--- NOTE | 2018-08-05 07:31 | NUR ---
HAND-OFF: Report given to NICOLE Weaver.
[2018-08-05 07:40] LABS: BASOPHILS % (AUTO) 0.7 % (0.0-2.0); EOSINOPHILS % (AUTO) 10.6 % (0.0-3.0); HEMATOCRIT 26.6 % (42.0-52.0); HEMOGLOBIN 8.6 G/DL (14.2-18.0); LYMPHOCYTES % (AUTO) 32.2 % (20.0-45.0); MEAN CORPUSCULAR VOLUME 93 FL (80-99); MONOCYTES % (AUTO) 11.8 % (1.0-10.0); NEUTROPHILS % (AUTO) 44.7 % (45.0-75.0); PLATELET COUNT 198 K/UL (150-450); RED BLOOD COUNT 2.85 M/UL (4.70-6.10); RED CELL DISTRIBUTION WIDTH 14.1 % (11.6-14.8); WHITE BLOOD COUNT 4.3 K/UL (4.8-10.8)
[2018-08-05 07:48] LABS: ANION GAP 11 mmol/L (5-15); BLOOD UREA NITROGEN 55 mg/dL (7-18); CALCIUM 8.7 MG/DL (8.5-10.1); CARBON DIOXIDE 22 MMOL/L (21-32); CHLORIDE 106 MMOL/L (98-107); CREATININE 5.3 MG/DL (0.55-1.30); POTASSIUM 3.9 MMOL/L (3.5-5.1); SODIUM 139 MMOL/L (136-145)
--- NOTE | 2018-08-05 07:55 | Urology Progress Note ---
Assessment/Plan Assessment/Plan 1. Urinary retention. 2. Neurogenic bladder. 3. History of chronic suprapubic tube. 4. BPH history. 5. History of end-stage renal disease. 6. Hematuria. 7. Pyuria. 8. Proteinuria. 9. Renal cysts. monitor clinically keep sp tube, last placed 08/01 hand irrigated and do PRN s/p abx recheck urine cx at some point Subjective Allergies: Coded Allergies: CEFEPIME (Verified Allergy, Intermediate, Rash, 03/01/18) Tolerates Carbapenem Subjective all noted, new sp tube draining well, occasional leakage Objective Last 24 Hour Vital Signs Date Time Temp Pulse Resp B/P (MAP) Pulse Ox O2 Delivery O2 Flow Rate FiO2 08/05/18 04:00 98.4 78 20 129/63 98 Room Air 08/05/18 03:29 76 20 Room Air 21 08/05/18 00:00 98.1 67 18 146/91 98 Room Air 08/04/18 21:00 Room Air 08/04/18 20:00 98.3 86 18 115/62 96 Room Air 08/04/18 16:00 97.1 71 20 129/77 96 Room Air 08/04/18 12:00 98.1 94 20 147/87 99 Room Air 08/04/18 09:00 Room Air 08/04/18 08:00 98.2 85 20 148/81 99 Room Air Intake and Output 08/04/18 08/05/18 18:59 06:59 Intake Total 600 ml Output Total 1500 ml 800 ml Balance -900 ml -800 ml Intake Oral 600 ml Output Urine Total 1500 ml 800 ml Microbiology Date/Time Source Procedure Growth Status 07/29/18 05:29 Blood Blood Culture - Final NO GROWTH AFTER 5 DAYS Complete 07/29/18 00:30 Nasal Nares MRSA Culture - Final Staphylococcus Aureus - Mrsa Complete 07/29/18 05:15 Urine,Clean Catch Urine Culture - Final Gram Positive Cocci Complete 07/29/18 00:30 Rectum VRE Culture - Final Enterococcus Faecalis - Vre Enterococcus Faecium - Vre Complete Current Medications Medications (Trade) Dose Ordered Sig/Dunia Route PRN Reason Start Time Stop Time Status Last Admin Dose Admin Albuterol/ Ipratropium (Albuterol/ Ipratropium) 3 ml Q4H PRN HHN Shortness of Breath 08/03/18 08:30 08/05/18 08:29 Dextrose (Dextrose 50%) 25 ml Q30M PRN IV Hypoglycemia 08/03/18 08:30 08/31/18 07:29 Dextrose (Dextrose 50%) 50 ml Q30M PRN IV Hypoglycemia 08/03/18 08:30 08/31/18 07:29 Duloxetine HCl (Cymbalta) 40 mg DAILY ORAL 08/03/18 09:00 09/02/18 08:59 08/04/18 08:35 Epoetin Jose (Epoetin Jose-EPBX(NON ESRD)) 10,000 unit WED-WED-WED SUBQ 08/03/18 21:00 09/02/18 20:59 08/03/18 20:52 Heparin Sodium (Porcine) (Heparin 5000 units/ml) 5,000 units EVERY 12 HOURS SUBQ 08/03/18 09:00 08/28/18 08:59 08/04/18 20:56 Insulin Aspart (NovoLOG) BEFORE MEALS AND HS SUBQ 08/03/18 11:30 08/31/18 07:29 08/05/18 06:32 Insulin Aspart (NovoLOG) 4 units NOVOTIAC SUBQ 08/04/18 06:30 09/03/18 06:29 08/05/18 06:31 Insulin Detemir (Levemir) 9 units BID SUBQ 08/04/18 09:00 09/03/18 08:59 08/04/18 17:46 Magnesium Oxide (Mag-Ox 400mg) 400 mg THREE TIMES A DAY ORAL 08/03/18 09:00 09/01/18 09:29 08/04/18 17:46 Pantoprazole (Protonix) 40 mg EVERY 12 HOURS ORAL 08/03/18 09:00 08/31/18 20:59 08/04/18 20:53 Quetiapine Fumarate (SEROquel) 25 mg Q6H PRN ORAL For Anxiety 08/03/18 08:30 08/31/18 08:29 Sevelamer Carbonate (Renvela) 800 mg THREE TIMES A DAY ORAL 08/03/18 09:00 08/28/18 12:59 08/04/18 17:46 Sodium Citrate (Bicitra) 30 ml EVERY 6 HOURS ORAL 08/03/18 12:00 08/28/18 11:59 08/05/18 06:28 Vitamin B Complex/ Vit C/Folic Acid (Nephrovite) 1 tab DAILY ORAL 08/03/18 09:00 08/29/18 08:59 08/04/18 08:35 Laboratory Tests 08/04/18 09:20: White Blood Count 4.7L, Red Blood Count 2.84L, Hemoglobin 8.5L, Hematocrit 26.1L , Mean Corpuscular Volume 92, Mean Corpuscular Hemoglobin 29.9, Mean Corpuscular Hemoglobin Concent 32.6, Red Cell Distribution Width 14.2, Platelet Count 224, Mean Platelet Volume 7.6, Neutrophils (%) (Auto) 49.3, Lymphocytes (% ) (Auto) 29.5, Monocytes (%) (Auto) 11.4H, Eosinophils (%) (Auto) 8.8H, Basophils (%) (Auto) 1.0, Sodium Level 140, Potassium Level 3.8, Chloride Level 106, Carbon Dioxide Level 24, Anion Gap 10, Blood Urea Nitrogen 57H, Creatinine 5.5H, Estimat Glomerular Filtration Rate 10.5, Glucose Level 119H, Calcium Level 8.1L 08/05/18 06:55: White Blood Count 4.3L, Red Blood Count 2.85L, Hemoglobin 8.6L, Hematocrit 26.6L , Mean Corpuscular Volume 93, Mean Corpuscular Hemoglobin 30.0, Mean Corpuscular Hemoglobin Concent 32.2, Red Cell Distribution Width 14.1, Platelet Count 198, Mean Platelet Volume 7.5, Neutrophils (%) (Auto) 44.7L, Lymphocytes ( %) (Auto) 32.2, Monocytes (%) (Auto) 11.8H, Eosinophils (%) (Auto) 10.6H, Basophils (%) (Auto) 0.7, Sodium Level 139, Potassium Level 3.9, Chloride Level 106, Carbon Dioxide Level 22, Anion Gap 11, Blood Urea Nitrogen 55H, Creatinine 5.3H, Estimat Glomerular Filtration Rate 11.0, Glucose Level 143H, Calcium Level 8.7 Height (Feet): 6 Height (Inches): 0.00 Weight (Pounds): 146 Objective exam stable Ye Rios MD Aug 05, 2018 07:55
[2018-08-05] MEDS: Nephrovite tab (Rena-Vite) ORAL SCH (08:38)
[2018-08-05] MEDS: Magnesium Oxide 400mg tab ORAL SCH ×3 (08:38→18:08)
[2018-08-05] MEDS: Heparin 5000 units/ml inj SUBQ SCH ×2 (08:40→21:09)
[2018-08-05] MEDS: Levemir Flexpen SUBQ SCH ×2 (08:44→18:06)
--- NOTE | 2018-08-05 11:30 | Nephrology Progress Note ---
Assessment/Plan Problem List: (1) Bladder outlet obstruction (2) Acute on chronic renal failure (3) Anemia in chronic kidney disease (4) BPH (benign prostatic hypertrophy) (5) DKA (diabetic ketoacidoses) (6) Encephalopathy acute Assessment ESRD , in need of dialysis , refuses- presents with high K Encephalopathy , Metabolic Acidosis , Uremic and Diabetic Sever Anemia: Mixed etiology HTn, but presents with low BP Supra Pubic Cath, h/o UTI, BPH Psych disease CAD, elevated Troponin I s/p DKAs Plan DC IV Bicarb Transfuse as needed Sugar control will do poorly in view of no dialysis plans DNR per orders Subjective ROS Limited/Unobtainable: No Objective Objective Last 24 Hour Vital Signs Date Time Temp Pulse Resp B/P (MAP) Pulse Ox O2 Delivery O2 Flow Rate FiO2 08/05/18 09:00 Room Air 08/05/18 08:00 98.3 80 18 99 Room Air 08/05/18 04:00 98.4 78 20 129/63 98 Room Air 08/05/18 03:29 76 20 Room Air 21 08/05/18 00:00 98.1 67 18 146/91 98 Room Air 08/04/18 21:00 Room Air 08/04/18 20:00 98.3 86 18 115/62 96 Room Air 08/04/18 16:00 97.1 71 20 129/77 96 Room Air 08/04/18 12:00 98.1 94 20 147/87 99 Room Air Intake and Output 08/04/18 08/05/18 18:59 06:59 Intake Total 600 ml Output Total 1500 ml 800 ml Balance -900 ml -800 ml Intake Oral 600 ml Output Urine Total 1500 ml 800 ml Laboratory Tests 08/05/18 06:55: White Blood Count 4.3L, Red Blood Count 2.85L, Hemoglobin 8.6L, Hematocrit 26.6L , Mean Corpuscular Volume 93, Mean Corpuscular Hemoglobin 30.0, Mean Corpuscular Hemoglobin Concent 32.2, Red Cell Distribution Width 14.1, Platelet Count 198, Mean Platelet Volume 7.5, Neutrophils (%) (Auto) 44.7L, Lymphocytes ( %) (Auto) 32.2, Monocytes (%) (Auto) 11.8H, Eosinophils (%) (Auto) 10.6H, Basophils (%) (Auto) 0.7, Sodium Level 139, Potassium Level 3.9, Chloride Level 106, Carbon Dioxide Level 22, Anion Gap 11, Blood Urea Nitrogen 55H, Creatinine 5.3H, Estimat Glomerular Filtration Rate 11.0, Glucose Level 143H, Calcium Level 8.7 Height (Feet): 6 Height (Inches): 0.00 Weight (Pounds): 146 General Appearance: no apparent distress Cardiovascular: normal rate Respiratory/Chest: decreased breath sounds Abdomen: soft Objective no change Luis Chambers MD Aug 05, 2018 11:30
--- NOTE | 2018-08-05 12:56 | Pulmonology Progress Note ---
Assessment/Plan Problems: (1) Encephalopathy acute (2) DKA (diabetic ketoacidoses) (3) Anemia in chronic kidney disease (4) CKD (chronic kidney disease), stage III (5) Major depressive disorder (6) Bladder outlet obstruction (7) Suprapubic catheter Assessment/Plan creatinine lower doing better no new complains Bs better controlled Acidosis improving Add epogen for anemia pt refusing HD check electrolytes continue DNR dvt prophylaxis All medications and treatment were reviewed.med recon done, dc to shelter today Subjective ROS Limited/Unobtainable: No Constitutional: Reports: no symptoms HEENT: Repors: no symptoms Allergies: Coded Allergies: CEFEPIME (Verified Allergy, Intermediate, Rash, 03/01/18) Tolerates Carbapenem Objective Last 24 Hour Vital Signs Date Time Temp Pulse Resp B/P (MAP) Pulse Ox O2 Delivery O2 Flow Rate FiO2 08/05/18 09:00 Room Air 08/05/18 08:00 98.3 80 18 99 Room Air 08/05/18 04:00 98.4 78 20 129/63 98 Room Air 08/05/18 03:29 76 20 Room Air 21 08/05/18 00:00 98.1 67 18 146/91 98 Room Air 08/04/18 21:00 Room Air 08/04/18 20:00 98.3 86 18 115/62 96 Room Air 08/04/18 16:00 97.1 71 20 129/77 96 Room Air Intake and Output 08/04/18 08/05/18 18:59 06:59 Intake Total 600 ml Output Total 1500 ml 800 ml Balance -900 ml -800 ml Intake Oral 600 ml Output Urine Total 1500 ml 800 ml Objective General Appearance: WD/WN HEENT: normocephalic, atraumatic, anicteric Respiratory/Chest: chest wall non-tender, lungs clear Breasts: no masses Cardiovascular: normal peripheral pulses, normal rate Abdomen: normal bowel sounds, soft, non tender Extremities: no cyanosis Skin: no rash Neurologic/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: 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 normal Lymphatic: no neck adenopathy Laboratory Tests 08/05/18 06:55: White Blood Count 4.3L, Red Blood Count 2.85L, Hemoglobin 8.6L, Hematocrit 26.6L , Mean Corpuscular Volume 93, Mean Corpuscular Hemoglobin 30.0, Mean Corpuscular Hemoglobin Concent 32.2, Red Cell Distribution Width 14.1, Platelet Count 198, Mean Platelet Volume 7.5, Neutrophils (%) (Auto) 44.7L, Lymphocytes ( %) (Auto) 32.2, Monocytes (%) (Auto) 11.8H, Eosinophils (%) (Auto) 10.6H, Basophils (%) (Auto) 0.7, Sodium Level 139, Potassium Level 3.9, Chloride Level 106, Carbon Dioxide Level 22, Anion Gap 11, Blood Urea Nitrogen 55H, Creatinine 5.3H, Estimat Glomerular Filtration Rate 11.0, Glucose Level 143H, Calcium Level 8.7 Current Medications Medications (Trade) Dose Ordered Sig/Dunia Route PRN Reason Start Time Stop Time Status Last Admin Dose Admin Dextrose (Dextrose 50%) 25 ml Q30M PRN IV Hypoglycemia 08/03/18 08:30 08/31/18 07:29 Dextrose (Dextrose 50%) 50 ml Q30M PRN IV Hypoglycemia 08/03/18 08:30 08/31/18 07:29 Duloxetine HCl (Cymbalta) 40 mg DAILY ORAL 08/03/18 09:00 09/02/18 08:59 08/05/18 08:38 Epoetin Jose (Epoetin Jose-EPBX(NON ESRD)) 10,000 unit WED-WED-WED SUBQ 08/03/18 21:00 09/02/18 20:59 08/03/18 20:52 Heparin Sodium (Porcine) (Heparin 5000 units/ml) 5,000 units EVERY 12 HOURS SUBQ 08/03/18 09:00 08/28/18 08:59 08/05/18 08:40 Insulin Aspart (NovoLOG) BEFORE MEALS AND HS SUBQ 08/03/18 11:30 08/31/18 07:29 08/05/18 06:32 Insulin Aspart (NovoLOG) 4 units NOVOTIAC SUBQ 08/04/18 06:30 09/03/18 06:29 08/05/18 06:31 Insulin Detemir (Levemir) 9 units BID SUBQ 08/04/18 09:00 09/03/18 08:59 08/05/18 08:44 Magnesium Oxide (Mag-Ox 400mg) 400 mg THREE TIMES A DAY ORAL 08/03/18 09:00 09/01/18 09:29 08/05/18 08:38 Pantoprazole (Protonix) 40 mg EVERY 12 HOURS ORAL 08/03/18 09:00 08/31/18 20:59 08/05/18 08:38 Quetiapine Fumarate (SEROquel) 25 mg Q6H PRN ORAL For Anxiety 08/03/18 08:30 08/31/18 08:29 Sevelamer Carbonate (Renvela) 800 mg THREE TIMES A DAY ORAL 08/03/18 09:00 08/28/18 12:59 08/05/18 08:38 Sodium Citrate (Bicitra) 30 ml EVERY 6 HOURS ORAL 08/03/18 12:00 08/28/18 11:59 08/05/18 06:28 Vitamin B Complex/ Vit C/Folic Acid (Nephrovite) 1 tab DAILY ORAL 08/03/18 09:00 08/29/18 08:59 08/05/18 08:38 Esdras Delgado MD Aug 05, 2018 12:56
--- NOTE | 2018-08-05 13:50 | General Progress Note ---
Assessment/Plan Problem List: (1) encephalopathy due to metabolic do (2) Major depressive disorder ICD Codes: F32.9 - Major depressive disorder, single episode, unspecified SNOMED: 956478573 Status: stable, progressing Assessment/Plan cont Cymbalta 40mg qam seroquel 25mg q6hr prn agitation provided ro/st Subjective Neurologic/Psychiatric: Reports: anxiety, depressed, emotional problems Allergies: Coded Allergies: CEFEPIME (Verified Allergy, Intermediate, Rash, 03/01/18) Tolerates Carbapenem Subjective the pt is doing well no complaints. remains in his bed most of the time Objective Last 24 Hour Vital Signs Date Time Temp Pulse Resp B/P (MAP) Pulse Ox O2 Delivery O2 Flow Rate FiO2 08/05/18 09:00 Room Air 08/05/18 08:00 98.3 80 18 99 Room Air 08/05/18 04:00 98.4 78 20 129/63 98 Room Air 08/05/18 03:29 76 20 Room Air 21 08/05/18 00:00 98.1 67 18 146/91 98 Room Air 08/04/18 21:00 Room Air 08/04/18 20:00 98.3 86 18 115/62 96 Room Air 08/04/18 16:00 97.1 71 20 129/77 96 Room Air Intake and Output 08/04/18 08/05/18 19:00 07:00 Intake Total 600 ml Output Total 1500 ml 800 ml Balance -900 ml -800 ml Intake Oral 600 ml Output Urine Total 1500 ml 800 ml Laboratory Tests 08/05/18 06:55: White Blood Count 4.3L, Red Blood Count 2.85L, Hemoglobin 8.6L, Hematocrit 26.6L , Mean Corpuscular Volume 93, Mean Corpuscular Hemoglobin 30.0, Mean Corpuscular Hemoglobin Concent 32.2, Red Cell Distribution Width 14.1, Platelet Count 198, Mean Platelet Volume 7.5, Neutrophils (%) (Auto) 44.7L, Lymphocytes ( %) (Auto) 32.2, Monocytes (%) (Auto) 11.8H, Eosinophils (%) (Auto) 10.6H, Basophils (%) (Auto) 0.7, Sodium Level 139, Potassium Level 3.9, Chloride Level 106, Carbon Dioxide Level 22, Anion Gap 11, Blood Urea Nitrogen 55H, Creatinine 5.3H, Estimat Glomerular Filtration Rate 11.0, Glucose Level 143H, Calcium Level 8.7 Height (Feet): 6 Height (Inches): 0.00 Weight (Pounds): 146 General Appearance: alert Neurologic: oriented x 3, responsive, depressed affect Fatmata Lu MD Aug 05, 2018 13:50
--- NOTE | 2018-08-05 14:33 | Internal Med Progress Note ---
Subjective Physician Name Christopher Rosado Attending Physician Christopher Rosado MD Current Medications Medications (Trade) Dose Ordered Sig/Dunia Route PRN Reason Start Time Stop Time Status Last Admin Dose Admin Dextrose (Dextrose 50%) 25 ml Q30M PRN IV Hypoglycemia 08/03/18 08:30 08/31/18 07:29 Dextrose (Dextrose 50%) 50 ml Q30M PRN IV Hypoglycemia 08/03/18 08:30 08/31/18 07:29 Duloxetine HCl (Cymbalta) 40 mg DAILY ORAL 08/03/18 09:00 09/02/18 08:59 08/05/18 08:38 Epoetin Jose (Epoetin Jose-EPBX(NON ESRD)) 10,000 unit WED-WED-WED SUBQ 08/03/18 21:00 09/02/18 20:59 08/03/18 20:52 Heparin Sodium (Porcine) (Heparin 5000 units/ml) 5,000 units EVERY 12 HOURS SUBQ 08/03/18 09:00 08/28/18 08:59 08/05/18 08:40 Insulin Aspart (NovoLOG) BEFORE MEALS AND HS SUBQ 08/03/18 11:30 08/31/18 07:29 08/05/18 11:30 Insulin Aspart (NovoLOG) 4 units NOVOTIAC SUBQ 08/04/18 06:30 09/03/18 06:29 08/05/18 13:10 Insulin Detemir (Levemir) 9 units BID SUBQ 08/04/18 09:00 09/03/18 08:59 08/05/18 08:44 Magnesium Oxide (Mag-Ox 400mg) 400 mg THREE TIMES A DAY ORAL 08/03/18 09:00 09/01/18 09:29 08/05/18 13:07 Pantoprazole (Protonix) 40 mg EVERY 12 HOURS ORAL 08/03/18 09:00 08/31/18 20:59 08/05/18 08:38 Quetiapine Fumarate (SEROquel) 25 mg Q6H PRN ORAL For Anxiety 08/03/18 08:30 08/31/18 08:29 Sevelamer Carbonate (Renvela) 800 mg THREE TIMES A DAY ORAL 08/03/18 09:00 08/28/18 12:59 08/05/18 13:07 Sodium Citrate (Bicitra) 30 ml EVERY 6 HOURS ORAL 08/03/18 12:00 08/28/18 11:59 08/05/18 13:10 Vitamin B Complex/ Vit C/Folic Acid (Nephrovite) 1 tab DAILY ORAL 08/03/18 09:00 08/29/18 08:59 08/05/18 08:38 Allergies: Coded Allergies: CEFEPIME (Verified Allergy, Intermediate, Rash, 03/01/18) Tolerates Carbapenem Subjective awake, alert, responsive, NAD Objective Last Vital Signs Date Time Temp Pulse Resp B/P (MAP) Pulse Ox O2 Delivery O2 Flow Rate FiO2 08/05/18 09:00 Room Air 08/05/18 08:00 98.3 80 18 99 08/05/18 04:00 129/63 08/05/18 03:29 21 Laboratory Tests Test 08/05/18 06:55 White Blood Count 4.3 K/UL (4.8-10.8) L Red Blood Count 2.85 M/UL (4.70-6.10) L Hemoglobin 8.6 G/DL (14.2-18.0) L Hematocrit 26.6 % (42.0-52.0) L Mean Corpuscular Volume 93 FL (80-99) Mean Corpuscular Hemoglobin 30.0 PG (27.0-31.0) Mean Corpuscular Hemoglobin Concent 32.2 G/DL (32.0-36.0) Red Cell Distribution Width 14.1 % (11.6-14.8) Platelet Count 198 K/UL (150-450) Mean Platelet Volume 7.5 FL (6.5-10.1) Neutrophils (%) (Auto) 44.7 % (45.0-75.0) L Lymphocytes (%) (Auto) 32.2 % (20.0-45.0) Monocytes (%) (Auto) 11.8 % (1.0-10.0) H Eosinophils (%) (Auto) 10.6 % (0.0-3.0) H Basophils (%) (Auto) 0.7 % (0.0-2.0) Sodium Level 139 MMOL/L (136-145) Potassium Level 3.9 MMOL/L (3.5-5.1) Chloride Level 106 MMOL/L (98-107) Carbon Dioxide Level 22 MMOL/L (21-32) Anion Gap 11 mmol/L (5-15) Blood Urea Nitrogen 55 mg/dL (7-18) H Creatinine 5.3 MG/DL (0.55-1.30) H Estimat Glomerular Filtration Rate 11.0 mL/min (>60) Glucose Level 143 MG/DL (74-106) H Calcium Level 8.7 MG/DL (8.5-10.1) Intake and Output 08/04/18 08/05/18 19:00 07:00 Intake Total 600 ml Output Total 1500 ml 800 ml Balance -900 ml -800 ml Intake Oral 600 ml Output Urine Total 1500 ml 800 ml Objective GENERAL: Awake, alert, responsive, no acute distress. HEAD AND NECK: Pupils are equal and reactive to light. Extraocular movements are intact in the right eye. Left eye blindness, Neck was supple. No JVD. LUNGS: fair air entry. No wheezing or rales. HEART: S1 and S2. Distant heart sounds. No Murmur or gallops. ABDOMEN: Soft, nontender, and nontender. Suprapubic catheter was noted. EXTREMITIES: No cyanosis or clubbing. Bilateral lower extremity trace LE's edema. NEUROLOGIC: Cranial nerves II through XII grossly intact. Motor is 5/5 in all extremities. Gait was not assessed due to the patient's status. Assessment/Plan Assessment/Plan 1. DKA. 2. Hypertension. 3. Dyslipidemia. 4. Diabetes type 1 with prior history of diabetic ketoacidosis. 5. Diabetic retinopathy of the left eye blindness. 6. End-stage renal disease secondary to diabetic nephrosclerosis. 7. Coronary artery disease with prior history of myocardial infarction. 8. 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 9. 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 10. Secondary hyperparathyroidism with vitamin D deficiency. 11. Anemia of chronic kidney disease. 12. Metabolic acidosis. 13. Depression with prior suicide attempt. 14. Acute encephalopathy due to toxic metabolic encephalopathy due to DKA. PLAN: 1. in Medical unit. 2. Code status is DNR/DNI as per POLST in the chart. 3. Follow up with Labs and culture. 4. Off abx. 5. DVT prophylaxis, heparin subcutaneous. 6. Dr. Delgado with critical care , Dr. Chambers from Nephrology and Dr. Rich Wick from Infectious Disease. 7. DC Planning to [facility]. Christopher Rosado MD Aug 05, 2018 14:33
[2018-08-05] MEDS ORDERED: NS 275ml ONE (16:42)
--- NOTE | 2018-08-05 16:42 | Infectious Diseases Prog Note ---
Assessment/Plan Assessment/Plan Assessment: Severe sepsis -likely 2ry to UTI- SP, s/p rx -u.a wbc tntc, nit neg, luek +3; ucx <10k GPC -Bcx Neg -CXR: Suspected atelectasis or scarring right Afebrile Leukocytosis, SP DKA RIVKA, improving hx of recent sepsis 2ry to UTI and bacteremia 07/08/18 UCx - P.a. MDR and Providencia 07/08/18 BCx ESBL Proteus and K. pneumo Dm2 HLD MDD with suicidal attempts in the past w/ resultant chronic encephalopathy CAD/AR BPH anemia asthma colonic polyps ESRD s/p renal and pancreas tx ~10 yrs ago now CKD 4 ConS bacteremia/line infection urinary retention s/p suprapubic catheter 09/2017 recurrent hematuria multiple hospital admissions recurrent UTI DNR Plan: - Cont to monitor off abx -08/02 SP Meropenem d# 5 07/29 SP one dose Amikacin -07/22 SP Meropenem, #14 - f/u cx -Monitor CBC/CMP, temperatures Subjective Allergies: Coded Allergies: CEFEPIME (Verified Allergy, Intermediate, Rash, 03/01/18) Tolerates Carbapenem Subjective afebrile no leukocytosis Bcx Neg Objective Vital Signs Last 24 Hour Vital Signs Date Time Temp Pulse Resp B/P (MAP) Pulse Ox O2 Delivery O2 Flow Rate FiO2 08/05/18 09:00 Room Air 08/05/18 08:00 98.3 80 18 99 Room Air 08/05/18 04:00 98.4 78 20 129/63 98 Room Air 08/05/18 03:29 76 20 Room Air 21 08/05/18 00:00 98.1 67 18 146/91 98 Room Air 08/04/18 21:00 Room Air 08/04/18 20:00 98.3 86 18 115/62 96 Room Air Height (Feet): 6 Height (Inches): 0.00 Weight (Pounds): 146 Objective Status: awake Condition: critical HEENT: atraumatic Lungs: chest wall tender Heart: HR/BP stable Abdomen: soft, non-tender Extremities: no C/C/E Decubiti: location Laboratory Tests Test 08/05/18 06:55 White Blood Count 4.3 K/UL (4.8-10.8) L Red Blood Count 2.85 M/UL (4.70-6.10) L Hemoglobin 8.6 G/DL (14.2-18.0) L Hematocrit 26.6 % (42.0-52.0) L Mean Corpuscular Volume 93 FL (80-99) Mean Corpuscular Hemoglobin 30.0 PG (27.0-31.0) Mean Corpuscular Hemoglobin Concent 32.2 G/DL (32.0-36.0) Red Cell Distribution Width 14.1 % (11.6-14.8) Platelet Count 198 K/UL (150-450) Mean Platelet Volume 7.5 FL (6.5-10.1) Neutrophils (%) (Auto) 44.7 % (45.0-75.0) L Lymphocytes (%) (Auto) 32.2 % (20.0-45.0) Monocytes (%) (Auto) 11.8 % (1.0-10.0) H Eosinophils (%) (Auto) 10.6 % (0.0-3.0) H Basophils (%) (Auto) 0.7 % (0.0-2.0) Sodium Level 139 MMOL/L (136-145) Potassium Level 3.9 MMOL/L (3.5-5.1) Chloride Level 106 MMOL/L (98-107) Carbon Dioxide Level 22 MMOL/L (21-32) Anion Gap 11 mmol/L (5-15) Blood Urea Nitrogen 55 mg/dL (7-18) H Creatinine 5.3 MG/DL (0.55-1.30) H Estimat Glomerular Filtration Rate 11.0 mL/min (>60) Glucose Level 143 MG/DL (74-106) H Calcium Level 8.7 MG/DL (8.5-10.1) Current Medications Medications (Trade) Dose Ordered Sig/Dunia Route PRN Reason Start Time Stop Time Status Last Admin Dose Admin Dextrose (Dextrose 50%) 25 ml Q30M PRN IV Hypoglycemia 08/03/18 08:30 08/31/18 07:29 Dextrose (Dextrose 50%) 50 ml Q30M PRN IV Hypoglycemia 08/03/18 08:30 08/31/18 07:29 Duloxetine HCl (Cymbalta) 40 mg DAILY ORAL 08/03/18 09:00 09/02/18 08:59 08/05/18 08:38 Epoetin Jose (Epoetin Jose-EPBX(NON ESRD)) 10,000 unit WED-WED-WED SUBQ 08/03/18 21:00 09/02/18 20:59 08/03/18 20:52 Heparin Sodium (Porcine) (Heparin 5000 units/ml) 5,000 units EVERY 12 HOURS SUBQ 08/03/18 09:00 08/28/18 08:59 08/05/18 08:40 Insulin Aspart (NovoLOG) BEFORE MEALS AND HS SUBQ 08/03/18 11:30 08/31/18 07:29 08/05/18 11:30 Insulin Aspart (NovoLOG) 4 units NOVOTIAC SUBQ 08/04/18 06:30 09/03/18 06:29 08/05/18 13:10 Insulin Detemir (Levemir) 9 units BID SUBQ 08/04/18 09:00 09/03/18 08:59 08/05/18 08:44 Magnesium Oxide (Mag-Ox 400mg) 400 mg THREE TIMES A DAY ORAL 08/03/18 09:00 09/01/18 09:29 08/05/18 13:07 Pantoprazole (Protonix) 40 mg EVERY 12 HOURS ORAL 08/03/18 09:00 08/31/18 20:59 08/05/18 08:38 Quetiapine Fumarate (SEROquel) 25 mg Q6H PRN ORAL For Anxiety 08/03/18 08:30 08/31/18 08:29 Sevelamer Carbonate (Renvela) 800 mg THREE TIMES A DAY ORAL 08/03/18 09:00 08/28/18 12:59 08/05/18 13:07 Sodium Citrate (Bicitra) 30 ml EVERY 6 HOURS ORAL 08/03/18 12:00 08/28/18 11:59 08/05/18 13:10 Vitamin B Complex/ Vit C/Folic Acid (Nephrovite) 1 tab DAILY ORAL 08/03/18 09:00 08/29/18 08:59 08/05/18 08:38 Monique Read M.D. Aug 05, 2018 16:42
--- NOTE | 2018-08-05 17:56 | NUR ---
NURSE NOTES: Pt blood sugar is reading high 14 units will be given and follow with md Charge nurse aware verified insulin dose. Charge Nurse and Chief Of Pediatric Urology aware. Dr. Jacques paged. Awaiting response. Patient awake, alert at this time. No complaints made at this time.
--- NOTE | 2018-08-05 18:09 | NUR ---
CHARGE NURSE NOTES: DR. SHERIFF CALLED BACK REGARDING HIGH GLUCOSE AC DINNER, ORDERED STAT GLUCOSE. NOTED, CARRIED OUT.
--- NOTE | 2018-08-05 18:51 | NUR ---
NURSE NOTES: pt v/s 150/72 p 71 res 19 temp 97.0. Blood sugar was high Dr drake. Pt pulled out IV 4 attempts . Pt is refusing . Refused dinner substitute provided , for lunch and dinner. Laboratory called pt blood sugar result is 603
--- NOTE | 2018-08-05 19:11 | NUR ---
NURSE NOTES: Dr Owens made aware of slight drainage around suprapubic catheter. No New Orders. IV placed to rt wrist
--- NOTE | 2018-08-05 19:27 | NUR ---
NURSE NOTES: Oncoming nurse made aware of high blood sugar levels. Informed that Dr Gonzalez was phoned to report high sugar levels . Snack is at bedside
--- NOTE | 2018-08-05 19:48 | NUR ---
HAND-OFF: Report given to Adrianna RIVERA oncoming nurse made aware of high sugar levels admitting dx.
--- NOTE | 2018-08-05 19:50 | NUR ---
NURSE NOTES: Received report from NICOLE Dhillon. Patient A&Ox3. On room air, no signs of distress or labored breathing. No IV access. Suprapubic catheter intact, patent, and draining. Bed in lowest position. Will continue with plan of care.
[2018-08-05 20:00] VITALS: BP 137/81
[2018-08-05] MEDS ORDERED: Epoetin Alfa-EPBX (NON ESRD)10,000 unit/ml vial SUBQ ONE (21:00)
--- NOTE | 2018-08-05 21:00 | NUR ---
NURSE NOTES: New IV placed. Right wrist, 22g, saline locked.
[2018-08-05] MEDS: Epoetin Alfa-EPBX (NON ESRD)10,000 unit/ml vial SUBQ SCH (21:08)
--- NOTE | 2018-08-05 21:52 | NUR ---
NURSE NOTES: BS 432, gave 14 units of levemir and notified Dr. Barrett, per protocol.
[2018-08-06] VITALS: BP 123/63
[2018-08-06] MEDS: Sodium Citrate 30ml ORAL SCH ×4 (00:04→17:15)
[2018-08-06 04:00] VITALS: BP 124/56
[2018-08-06] MEDS: NovoLOG Insulin Flexpen SUBQ SCH ×7 (06:12→20:56)
--- NOTE | 2018-08-06 06:45 | NUR ---
NURSE NOTES: Patient has BS of 60. Gave 1 cup of orange juice. 30 mins later BS was 80. Notified Dr. Georgie VEGA.
--- NOTE | 2018-08-06 07:00 | NUR ---
NURSE NOTES: Dr. Jacques called back. said, its fine that Novolog was held but to NOT hold Levemir. Will endorse to AM shift RN.
--- NOTE | 2018-08-06 07:37 | NUR ---
HAND-OFF: Report given to NICOLE Pollard.
--- NOTE | 2018-08-06 07:40 | NUR ---
NURSE NOTES: Patient alert x3, to name, place, purpuse not for time. Patient on room air, no sign of distress and shortness of breath, no sign of chest pain. Redness of buttocks. Supra-pubic catheter in place and drains well. Will check blood sugar as schedules and give Novolog and Levemir as scheduled. Bed at lowest position, side rails up x2, breaks engaged. Will keep monitoring.
[2018-08-06 08:00] VITALS: BP 142/77
[2018-08-06] MEDS: Nephrovite tab (Rena-Vite) ORAL SCH (08:13)
[2018-08-06] MEDS: Magnesium Oxide 400mg tab ORAL SCH ×3 (08:14→17:14)
[2018-08-06] MEDS: Heparin 5000 units/ml inj SUBQ SCH ×2 (08:17→21:00)
[2018-08-06] MEDS: Levemir Flexpen SUBQ SCH ×2 (08:18→18:12)
--- NOTE | 2018-08-06 08:59 | NUR ---
NURSE NOTES: Blood sugar checked, 246, 9 units Levemir given. Will keep monitoring.
--- NOTE | 2018-08-06 09:04 | Urology Progress Note ---
Assessment/Plan Assessment/Plan 1. Urinary retention. 2. Neurogenic bladder. 3. History of chronic suprapubic tube. 4. BPH history. 5. History of end-stage renal disease. 6. Hematuria. 7. Pyuria. 8. Proteinuria. 9. Renal cysts. monitor clinically keep sp tube, last placed 08/01 hand irrigated and do PRN s/p abx recheck urine cx at some point Subjective Allergies: Coded Allergies: CEFEPIME (Verified Allergy, Intermediate, Rash, 03/01/18) Tolerates Carbapenem Subjective all noted, new sp tube draining well, occasional leakage Objective Last 24 Hour Vital Signs Date Time Temp Pulse Resp B/P (MAP) Pulse Ox O2 Delivery O2 Flow Rate FiO2 08/06/18 08:00 97.5 91 18 142/77 97 Room Air 08/06/18 04:00 98.1 77 20 124/56 98 Room Air 08/06/18 00:00 98.1 80 20 123/63 95 08/05/18 21:00 Room Air 08/05/18 20:00 98.1 105 20 137/81 98 08/05/18 16:00 97.0 83 17 97 Intake and Output 08/05/18 08/06/18 19:00 07:00 Intake Total 720 ml Output Total 800 ml 1200 ml Balance -80 ml -1200 ml Intake Oral 720 ml Output Urine Total 800 ml 1200 ml # Bowel Movements 1 Microbiology Date/Time Source Procedure Growth Status 07/29/18 05:29 Blood Blood Culture - Final NO GROWTH AFTER 5 DAYS Complete 07/29/18 00:30 Nasal Nares MRSA Culture - Final Staphylococcus Aureus - Mrsa Complete 07/29/18 05:15 Urine,Clean Catch Urine Culture - Final Gram Positive Cocci Complete 07/29/18 00:30 Rectum VRE Culture - Final Enterococcus Faecalis - Vre Enterococcus Faecium - Vre Complete Current Medications Medications (Trade) Dose Ordered Sig/Dunia Route PRN Reason Start Time Stop Time Status Last Admin Dose Admin Dextrose (Dextrose 50%) 25 ml Q30M PRN IV Hypoglycemia 08/03/18 08:30 08/31/18 07:29 Dextrose (Dextrose 50%) 50 ml Q30M PRN IV Hypoglycemia 08/03/18 08:30 08/31/18 07:29 Duloxetine HCl (Cymbalta) 40 mg DAILY ORAL 08/03/18 09:00 09/02/18 08:59 08/06/18 08:14 Epoetin Jose (Epoetin Jose-EPBX(NON ESRD)) 10,000 unit WED-WED-WED SUBQ 08/03/18 21:00 09/02/18 20:59 08/05/18 21:08 Heparin Sodium (Porcine) (Heparin 5000 units/ml) 5,000 units EVERY 12 HOURS SUBQ 08/03/18 09:00 08/28/18 08:59 08/06/18 08:17 Insulin Aspart (NovoLOG) BEFORE MEALS AND HS SUBQ 08/03/18 11:30 08/31/18 07:29 08/05/18 21:10 Insulin Aspart (NovoLOG) 4 units NOVOTIAC SUBQ 08/04/18 06:30 09/03/18 06:29 08/05/18 18:05 Insulin Detemir (Levemir) 9 units BID SUBQ 08/04/18 09:00 09/03/18 08:59 08/06/18 08:18 Magnesium Oxide (Mag-Ox 400mg) 400 mg THREE TIMES A DAY ORAL 08/03/18 09:00 09/01/18 09:29 08/06/18 08:14 Pantoprazole (Protonix) 40 mg EVERY 12 HOURS ORAL 08/03/18 09:00 08/31/18 20:59 08/06/18 08:13 Quetiapine Fumarate (SEROquel) 25 mg Q6H PRN ORAL For Anxiety 08/03/18 08:30 08/31/18 08:29 Sevelamer Carbonate (Renvela) 800 mg THREE TIMES A DAY ORAL 08/03/18 09:00 08/28/18 12:59 08/06/18 08:13 Sodium Citrate (Bicitra) 30 ml EVERY 6 HOURS ORAL 08/03/18 12:00 08/28/18 11:59 08/06/18 06:10 Vitamin B Complex/ Vit C/Folic Acid (Nephrovite) 1 tab DAILY ORAL 08/03/18 09:00 08/29/18 08:59 08/06/18 08:13 Laboratory Tests 08/05/18 18:17: Glucose Level 603#*H Height (Feet): 6 Height (Inches): 0.00 Weight (Pounds): 148 Objective exam stable Bamshad,Ye Alex MD Aug 06, 2018 09:04
--- NOTE | 2018-08-06 09:11 | Infectious Diseases Prog Note ---
Assessment/Plan Assessment/Plan Severe sepsis -likely 2ry to UTI- SP, s/p rx -u.a wbc tntc, nit neg, luek +3; ucx <10k GPC -Bcx Neg -CXR: Suspected atelectasis or scarring right Afebrile Leukocytosis, SP DKA RIVKA, improving hx of recent sepsis 2ry to UTI and bacteremia 07/08/18 UCx - P.a. MDR and Providencia 07/08/18 BCx ESBL Proteus and K. pneumo Dm2 HLD MDD with suicidal attempts in the past w/ resultant chronic encephalopathy CAD/CA BPH anemia asthma colonic polyps ESRD s/p renal and pancreas tx ~10 yrs ago now CKD 4 ConS bacteremia/line infection urinary retention s/p suprapubic catheter 09/2017 recurrent hematuria multiple hospital admissions recurrent UTI DNR Plan: - Cont to monitor off abx as clinically stable -08/02 SP Meropenem d# 5 07/29 SP one dose Amikacin -07/22 SP Meropenem, #14 - f/u cx -Monitor CBC/CMP, temperatures Subjective Allergies: Coded Allergies: CEFEPIME (Verified Allergy, Intermediate, Rash, 03/01/18) Tolerates Carbapenem Subjective Patient awake Afebrile No leukocytosis Objective Vital Signs Last 24 Hour Vital Signs Date Time Temp Pulse Resp B/P (MAP) Pulse Ox O2 Delivery O2 Flow Rate FiO2 08/06/18 08:00 97.5 91 18 142/77 97 Room Air 08/06/18 04:00 98.1 77 20 124/56 98 Room Air 08/06/18 00:00 98.1 80 20 123/63 95 08/05/18 21:00 Room Air 08/05/18 20:00 98.1 105 20 137/81 98 08/05/18 16:00 97.0 83 17 97 Height (Feet): 6 Height (Inches): 0.00 Weight (Pounds): 148 Objective Condition: NAD HEENT: NCAT, MMM Lungs: chest wall tender Heart: HR/BP stable, Abdomen: soft, non-tender, ND Extremities: no C/C/E Laboratory Tests Test 08/05/18 18:17 Glucose Level 603 MG/DL (74-106) #*H Current Medications Medications (Trade) Dose Ordered Sig/Dunia Route PRN Reason Start Time Stop Time Status Last Admin Dose Admin Dextrose (Dextrose 50%) 25 ml Q30M PRN IV Hypoglycemia 08/03/18 08:30 08/31/18 07:29 Dextrose (Dextrose 50%) 50 ml Q30M PRN IV Hypoglycemia 08/03/18 08:30 08/31/18 07:29 Duloxetine HCl (Cymbalta) 40 mg DAILY ORAL 08/03/18 09:00 09/02/18 08:59 08/06/18 08:14 Epoetin Jose (Epoetin Jose-EPBX(NON ESRD)) 10,000 unit WED-WED-WED SUBQ 08/03/18 21:00 09/02/18 20:59 08/05/18 21:08 Heparin Sodium (Porcine) (Heparin 5000 units/ml) 5,000 units EVERY 12 HOURS SUBQ 08/03/18 09:00 08/28/18 08:59 08/06/18 08:17 Insulin Aspart (NovoLOG) BEFORE MEALS AND HS SUBQ 08/03/18 11:30 08/31/18 07:29 08/05/18 21:10 Insulin Aspart (NovoLOG) 4 units NOVOTIAC SUBQ 08/04/18 06:30 09/03/18 06:29 08/05/18 18:05 Insulin Detemir (Levemir) 9 units BID SUBQ 08/04/18 09:00 09/03/18 08:59 08/06/18 08:18 Magnesium Oxide (Mag-Ox 400mg) 400 mg THREE TIMES A DAY ORAL 08/03/18 09:00 09/01/18 09:29 08/06/18 08:14 Pantoprazole (Protonix) 40 mg EVERY 12 HOURS ORAL 08/03/18 09:00 08/31/18 20:59 08/06/18 08:13 Quetiapine Fumarate (SEROquel) 25 mg Q6H PRN ORAL For Anxiety 08/03/18 08:30 08/31/18 08:29 Sevelamer Carbonate (Renvela) 800 mg THREE TIMES A DAY ORAL 08/03/18 09:00 08/28/18 12:59 08/06/18 08:13 Sodium Citrate (Bicitra) 30 ml EVERY 6 HOURS ORAL 08/03/18 12:00 08/28/18 11:59 08/06/18 06:10 Vitamin B Complex/ Vit C/Folic Acid (Nephrovite) 1 tab DAILY ORAL 08/03/18 09:00 08/29/18 08:59 08/06/18 08:13 William Caputo MD Aug 06, 2018 09:11
--- NOTE | 2018-08-06 09:55 | Pulmonology Progress Note ---
Assessment/Plan Problems: (1) Encephalopathy acute (2) DKA (diabetic ketoacidoses) (3) Anemia in chronic kidney disease (4) CKD (chronic kidney disease), stage III (5) Major depressive disorder (6) Bladder outlet obstruction (7) Suprapubic catheter Assessment/Plan all reviewed creatinine lower doing better no new complains Bs better controlled Acidosis improving Add epogen for anemia pt refusing HD check electrolytes continue DNR dvt prophylaxis All medications and treatment were reviewed.med recon done, dc to retirement today Subjective Constitutional: Reports: no symptoms HEENT: Repors: no symptoms Allergies: Coded Allergies: CEFEPIME (Verified Allergy, Intermediate, Rash, 03/01/18) Tolerates Carbapenem Objective Last 24 Hour Vital Signs Date Time Temp Pulse Resp B/P (MAP) Pulse Ox O2 Delivery O2 Flow Rate FiO2 08/06/18 09:00 Room Air 08/06/18 08:00 97.5 91 18 142/77 97 Room Air 08/06/18 04:00 98.1 77 20 124/56 98 Room Air 08/06/18 00:00 98.1 80 20 123/63 95 08/05/18 21:00 Room Air 08/05/18 20:00 98.1 105 20 137/81 98 08/05/18 16:00 97.0 83 17 97 Intake and Output 08/05/18 08/06/18 18:59 06:59 Intake Total 720 ml Output Total 800 ml 1200 ml Balance -80 ml -1200 ml Intake Oral 720 ml Output Urine Total 800 ml 1200 ml # Bowel Movements 1 Objective General Appearance: WD/WN HEENT: normocephalic, atraumatic, anicteric Respiratory/Chest: chest wall non-tender, lungs clear Breasts: no masses Cardiovascular: normal peripheral pulses, normal rate Abdomen: normal bowel sounds, soft, non tender Extremities: no cyanosis Skin: no rash Neurologic/Psychiatric: prototype special build II-XII grossly normal Lymphatic: no neck adenopathy Laboratory Tests 08/05/18 18:17: Glucose Level 603#*H Current Medications Medications (Trade) Dose Ordered Sig/Dunia Route PRN Reason Start Time Stop Time Status Last Admin Dose Admin Dextrose (Dextrose 50%) 25 ml Q30M PRN IV Hypoglycemia 08/03/18 08:30 08/31/18 07:29 Dextrose (Dextrose 50%) 50 ml Q30M PRN IV Hypoglycemia 08/03/18 08:30 08/31/18 07:29 Duloxetine HCl (Cymbalta) 40 mg DAILY ORAL 08/03/18 09:00 09/02/18 08:59 08/06/18 08:14 Epoetin Jose (Epoetin Jose-EPBX(NON ESRD)) 10,000 unit WED-WED-WED SUBQ 08/03/18 21:00 09/02/18 20:59 08/05/18 21:08 Heparin Sodium (Porcine) (Heparin 5000 units/ml) 5,000 units EVERY 12 HOURS SUBQ 08/03/18 09:00 08/28/18 08:59 08/06/18 08:17 Insulin Aspart (NovoLOG) BEFORE MEALS AND HS SUBQ 08/03/18 11:30 08/31/18 07:29 08/05/18 21:10 Insulin Aspart (NovoLOG) 4 units NOVOTIAC SUBQ 08/04/18 06:30 09/03/18 06:29 08/05/18 18:05 Insulin Detemir (Levemir) 9 units BID SUBQ 08/04/18 09:00 09/03/18 08:59 08/06/18 08:18 Magnesium Oxide (Mag-Ox 400mg) 400 mg THREE TIMES A DAY ORAL 08/03/18 09:00 09/01/18 09:29 08/06/18 08:14 Pantoprazole (Protonix) 40 mg EVERY 12 HOURS ORAL 08/03/18 09:00 08/31/18 20:59 08/06/18 08:13 Quetiapine Fumarate (SEROquel) 25 mg Q6H PRN ORAL For Anxiety 08/03/18 08:30 08/31/18 08:29 Sevelamer Carbonate (Renvela) 800 mg THREE TIMES A DAY ORAL 08/03/18 09:00 08/28/18 12:59 08/06/18 08:13 Sodium Citrate (Bicitra) 30 ml EVERY 6 HOURS ORAL 08/03/18 12:00 08/28/18 11:59 08/06/18 06:10 Vitamin B Complex/ Vit C/Folic Acid (Nephrovite) 1 tab DAILY ORAL 08/03/18 09:00 08/29/18 08:59 08/06/18 08:13 Esdras Delgado MD Aug 06, 2018 09:55
--- NOTE | 2018-08-06 11:07 | Nephrology Progress Note ---
Assessment/Plan Problem List: (1) Bladder outlet obstruction (2) Acute on chronic renal failure (3) Anemia in chronic kidney disease (4) BPH (benign prostatic hypertrophy) (5) DKA (diabetic ketoacidoses) (6) Encephalopathy acute Assessment ESRD , in need of dialysis , refuses- presents with high K Encephalopathy , Metabolic Acidosis , Uremic and Diabetic Sever Anemia: Mixed etiology HTn, but presents with low BP Supra Pubic Cath, h/o UTI, BPH Psych disease CAD, elevated Troponin I s/p DKAs Plan had episode of high glucose over 600 yesterday DC IV Bicarb Transfuse as needed Sugar control will do poorly in view of no dialysis plans DNR per orders Subjective ROS Limited/Unobtainable: No Constitutional: Reports: malaise, weakness Objective Objective Last 24 Hour Vital Signs Date Time Temp Pulse Resp B/P (MAP) Pulse Ox O2 Delivery O2 Flow Rate FiO2 08/06/18 09:00 Room Air 08/06/18 08:00 97.5 91 18 142/77 97 Room Air 08/06/18 04:00 98.1 77 20 124/56 98 Room Air 08/06/18 00:00 98.1 80 20 123/63 95 08/05/18 21:00 Room Air 08/05/18 20:00 98.1 105 20 137/81 98 08/05/18 16:00 97.0 83 17 97 Intake and Output 08/05/18 08/06/18 18:59 06:59 Intake Total 720 ml Output Total 800 ml 1200 ml Balance -80 ml -1200 ml Intake Oral 720 ml Output Urine Total 800 ml 1200 ml # Bowel Movements 1 Laboratory Tests 08/05/18 18:17: Glucose Level 603#*H Height (Feet): 6 Height (Inches): 0.00 Weight (Pounds): 148 General Appearance: no apparent distress, lethargic Cardiovascular: tachycardia Respiratory/Chest: decreased breath sounds Abdomen: distended Objective no change Luis Chambers MD Aug 06, 2018 11:07
[2018-08-06 12:00] VITALS: BP 146/69
--- NOTE | 2018-08-06 14:33 | Internal Med Progress Note ---
Subjective Date of Service: Aug 06, 2018 Physician Name Jose Glasgow Attending Physician Christopher Rosado MD Current Medications Medications (Trade) Dose Ordered Sig/Dunia Route PRN Reason Start Time Stop Time Status Last Admin Dose Admin Dextrose (Dextrose 50%) 25 ml Q30M PRN IV Hypoglycemia 08/03/18 08:30 08/31/18 07:29 Dextrose (Dextrose 50%) 50 ml Q30M PRN IV Hypoglycemia 08/03/18 08:30 08/31/18 07:29 Duloxetine HCl (Cymbalta) 40 mg DAILY ORAL 08/03/18 09:00 09/02/18 08:59 08/06/18 08:14 Epoetin Jose (Epoetin Jose-EPBX(NON ESRD)) 10,000 unit WED-WED-WED SUBQ 08/03/18 21:00 09/02/18 20:59 08/05/18 21:08 Heparin Sodium (Porcine) (Heparin 5000 units/ml) 5,000 units EVERY 12 HOURS SUBQ 08/03/18 09:00 08/28/18 08:59 08/06/18 08:17 Insulin Aspart (NovoLOG) BEFORE MEALS AND HS SUBQ 08/03/18 11:30 08/31/18 07:29 08/06/18 11:35 Insulin Aspart (NovoLOG) 4 units NOVOTIAC SUBQ 08/04/18 06:30 09/03/18 06:29 08/06/18 11:34 Insulin Detemir (Levemir) 9 units BID SUBQ 08/04/18 09:00 09/03/18 08:59 08/06/18 08:18 Magnesium Oxide (Mag-Ox 400mg) 400 mg THREE TIMES A DAY ORAL 08/03/18 09:00 09/01/18 09:29 08/06/18 12:50 Pantoprazole (Protonix) 40 mg EVERY 12 HOURS ORAL 08/03/18 09:00 08/31/18 20:59 08/06/18 08:13 Quetiapine Fumarate (SEROquel) 25 mg Q6H PRN ORAL For Anxiety 08/03/18 08:30 08/31/18 08:29 Sevelamer Carbonate (Renvela) 800 mg THREE TIMES A DAY ORAL 08/03/18 09:00 08/28/18 12:59 08/06/18 12:51 Sodium Citrate (Bicitra) 30 ml EVERY 6 HOURS ORAL 08/03/18 12:00 08/28/18 11:59 08/06/18 11:32 Vitamin B Complex/ Vit C/Folic Acid (Nephrovite) 1 tab DAILY ORAL 08/03/18 09:00 08/29/18 08:59 08/06/18 08:13 Allergies: Coded Allergies: CEFEPIME (Verified Allergy, Intermediate, Rash, 03/01/18) Tolerates Carbapenem ROS Limited/Unobtainable: No Constitutional: Reports: no symptoms HEENT: Reports: no symptoms Cardiovascular: Reports: no symptoms Respiratory: Reports: no symptoms Gastrointestinal/Abdominal: Reports: no symptoms Genitourinary: Reports: no symptoms Neurologic/Psychiatric: Reports: no symptoms Subjective 63 YO M with history of diabetes I admitted with hyperglycemia and DKA. Cover for [facility] Med-Dr Rosado. Await acceptance to [facility] Objective Last Vital Signs Date Time Temp Pulse Resp B/P (MAP) Pulse Ox O2 Delivery O2 Flow Rate FiO2 08/06/18 12:00 97.9 92 18 146/69 99 Room Air 08/05/18 03:29 21 Laboratory Tests Test 08/05/18 18:17 Glucose Level 603 MG/DL (74-106) #*H Intake and Output 08/05/18 08/06/18 18:59 06:59 Intake Total 720 ml Output Total 800 ml 1200 ml Balance -80 ml -1200 ml Intake Oral 720 ml Output Urine Total 800 ml 1200 ml # Bowel Movements 1 Objective GENERAL: The patient is awake and responsive but confused, in no acute distress. HEAD AND NECK: Pupils are equal and reactive to light. Extraocular movements are intact in the right eye. Left eye blindness, Neck was supple. No JVD. LUNGS: fair air entry. No wheezing or rales. HEART: S1 and S2. Distant heart sounds. No Murmur or gallops. ABDOMEN: Soft, nontender, and nontender. Suprapubic catheter was noted. EXTREMITIES: No cyanosis or clubbing. Bilateral lower extremity trace LE's edema. NEUROLOGIC: Cranial nerves II through XII grossly intact. Motor is 5/5 in all extremities. Gait was not assessed due to the patient's status. Assessment/Plan Assessment/Plan ASSESSMENT: 1. DKA. 2. Hypertension. 3. Dyslipidemia. 4. Diabetes type 1 with prior history of diabetic ketoacidosis. 5. Diabetic retinopathy of the left eye blindness. 6. End-stage renal disease secondary to diabetic nephrosclerosis. 7. Coronary artery disease with prior history of myocardial infarction. 8. 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 9. 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 10. Secondary hyperparathyroidism with vitamin D deficiency. 11. Anemia of chronic kidney disease. 12. Metabolic acidosis. 13. Depression with prior suicide attempt. 14. Acute encephalopathy due to toxic metabolic encephalopathy due to DKA. PLAN: 1. Med/surg 2. Code status is DNR/DNI as per POLST in the chart. 3. Resume care home medications. 4. Follow up with Labs and culture. 5. Broad spectrum antibiotic with Meropenem. 6. DVT prophylaxis, heparin subcutaneous. 7. We will follow up with Dr. Delgado with critical care , Dr. Chambers from Nephrology and Dr. Rich Wick from Infectious Disease. 8. We will follow up with the cultures and laboratory in the morning. 9. Levemir and Insulin sliding scale per endocrinology 10. Discharge planning: SNF when bed available. Jose Glasgow MD Aug 06, 2018 14:33
[2018-08-06 16:00] VITALS: BP 123/67
--- NOTE | 2018-08-06 18:00 | NUR ---
NURSE NOTES: Patient took out his IV, tried to get an IV on him. Resource RN, Michael try too but couldn't succeeded. I brought vein finder from [employer] and RN and resource RN tried but not succeeded. I ask nursing shell core and molding supervisor to send us RN from ICU. Waiting for SANDWICH AND DRINK CART OPERATOR.
--- NOTE | 2018-08-06 18:20 | NUR ---
NURSE NOTES: I checked before I give Levemir at 1800, patient's blood sugar is 78. According to Dr Jacques order, not to hold Levemir as I was endorsed by PM nurse, Fanta, I administered 9 units as ordered and gave patient orange juice.
--- NOTE | 2018-08-06 19:40 | NUR ---
HAND-OFF: Report given to NICOLE Fuchs.
--- NOTE | 2018-08-06 19:58 | NUR ---
NURSE NOTES: Received report from NICOLE Pollard. Patient A&Ox3. On room air. Appears agitated and aggressive but then calms down. On room air. Currently no IV access. Suprapubic catheter intact, patent, and draining urine. Bed in lowest position with call light in reach. Will continue with plan of care.
[2018-08-06 20:00] VITALS: BP 101/48
--- NOTE | 2018-08-06 21:01 | General Progress Note ---
Assessment/Plan Problem List: (1) encephalopathy due to metabolic do (2) Major depressive disorder ICD Codes: F32.9 - Major depressive disorder, single episode, unspecified SNOMED: 767497013 Assessment/Plan cont Cymbalta 40mg qam seroquel 25mg q6hr prn agitation provided ro/st Subjective Neurologic/Psychiatric: Reports: anxiety, depressed, emotional problems Allergies: Coded Allergies: CEFEPIME (Verified Allergy, Intermediate, Rash, 03/01/18) Tolerates Carbapenem Subjective the pt is doing well no complaints. Objective Last 24 Hour Vital Signs Date Time Temp Pulse Resp B/P (MAP) Pulse Ox O2 Delivery O2 Flow Rate FiO2 08/06/18 16:00 97.6 95 18 123/67 98 Room Air 08/06/18 12:00 97.9 92 18 146/69 99 Room Air 08/06/18 09:00 Room Air 08/06/18 08:00 97.5 91 18 142/77 97 Room Air 08/06/18 04:00 98.1 77 20 124/56 98 Room Air 08/06/18 00:00 98.1 80 20 123/63 95 Intake and Output 08/05/18 08/06/18 19:00 07:00 Intake Total 720 ml Output Total 800 ml 1200 ml Balance -80 ml -1200 ml Intake Oral 720 ml Output Urine Total 800 ml 1200 ml # Bowel Movements 1 Height (Feet): 6 Height (Inches): 0.00 Weight (Pounds): 148 General Appearance: no apparent distress, alert Neurologic: responsive, Babinski present Fatmata Lu MD Aug 06, 2018 21:01
--- NOTE | 2018-08-06 21:37 | NUR ---
NURSE NOTES: RN and charge nurses tried several times to establish IV access. Initially patient agreed but as charge nurse began patient became very aggressive and combative, attempting to hit RN and charge nurse. Will hold off for now and notify .
--- NOTE | 2018-08-06 21:46 | NUR ---
NURSE NOTES: At 2100, BS was 40. RN gave 3 cups of juice and held Novolog insulin. Rechecked about 40 mins late, BS was 96. Notified Dr. Jacques, left message.
[2018-08-07] MEDS: Sodium Citrate 30ml ORAL SCH ×5 (00:07→23:51)
[2018-08-07 04:00] VITALS: BP 107/60
[2018-08-07] MEDS: NovoLOG Insulin Flexpen SUBQ SCH ×7 (06:05→20:55)
--- NOTE | 2018-08-07 07:07 | NUR ---
NURSE NOTES: 0600 BS was 44. Gave 3 cups of orange juice. Rechecked BS, was 95. Called Dr. Jacques per protocol to notify him. Held sliding scale and scheduled 4 units of NovoLog. Will endorse to day shift RN, per MD, not to hold Levemir.
--- NOTE | 2018-08-07 07:45 | NUR ---
NURSE NOTES: Received patient in bed awake, alert and oriented x3, No acute respiratory distress noted. No c/o pain or any discomfort noted, Bed is in lowest position and locked, Call light and needs within reach, Dr. Jacques aware with episode of low blood sugar, He said he will take care of it, Will continue to plan of care.
--- NOTE | 2018-08-07 07:50 | NUR ---
HAND-OFF: Report given to Bonnie CARRION RN and NICOLE Rodriguez.
--- NOTE | 2018-08-07 07:58 | General Progress Note ---
Assessment/Plan Problem List: (1) DKA (diabetic ketoacidoses) ICD Codes: E13.10 - DKA (diabetic ketoacidoses) SNOMED: 15025719 Qualifiers: Qualified Codes: E10.10 - Type 1 diabetes mellitus with ketoacidosis without coma (2) CKD (chronic kidney disease), stage III ICD Codes: N18.3 - CKD (chronic kidney disease), stage III SNOMED: 507151379 (3) encephalopathy due to metabolic do (4) Pulmonary HTN ICD Codes: I27.0 - Pulmonary HTN SNOMED: 74543891 Assessment/Plan reduce Levemir to 7 units bid - do not hold without notifying me continue Novolog 4 units ac tid NISS ac / hs Subjective ROS Limited/Unobtainable: Yes Allergies: Coded Allergies: CEFEPIME (Verified Allergy, Intermediate, Rash, 03/01/18) Tolerates Carbapenem Subjective glucose value on lower side this morning Objective Last 24 Hour Vital Signs Date Time Temp Pulse Resp B/P (MAP) Pulse Ox O2 Delivery O2 Flow Rate FiO2 08/07/18 04:00 96.6 67 20 107/60 98 Room Air 08/06/18 21:00 Room Air 08/06/18 20:00 98.1 77 20 101/48 98 Room Air 08/06/18 16:00 97.6 95 18 123/67 98 Room Air 08/06/18 12:00 97.9 92 18 146/69 99 Room Air 08/06/18 09:00 Room Air 08/06/18 08:00 97.5 91 18 142/77 97 Room Air Intake and Output 08/06/18 08/07/18 19:00 07:00 Intake Total 600 ml Output Total 400 ml Balance 200 ml Intake Oral 600 ml Output Urine Total 400 ml # Voids 3 Height (Feet): 6 Height (Inches): 0.00 Weight (Pounds): 150 General Appearance: no apparent distress Neck: normal alignment Cardiovascular: normal rate Respiratory/Chest: normal breath sounds Abdomen: normal bowel sounds Objective Current Medications Medications (Trade) Dose Ordered Sig/Dunia Route PRN Reason Start Time Stop Time Status Last Admin Dose Admin Dextrose (Dextrose 50%) 25 ml Q30M PRN IV Hypoglycemia 08/03/18 08:30 08/31/18 07:29 Dextrose (Dextrose 50%) 50 ml Q30M PRN IV Hypoglycemia 08/03/18 08:30 08/31/18 07:29 Duloxetine HCl (Cymbalta) 40 mg DAILY ORAL 08/03/18 09:00 09/02/18 08:59 08/06/18 08:14 Epoetin Jose (Epoetin Jose-EPBX(NON ESRD)) 10,000 unit WED-WED-WED SUBQ 08/03/18 21:00 09/02/18 20:59 08/05/18 21:08 Heparin Sodium (Porcine) (Heparin 5000 units/ml) 5,000 units EVERY 12 HOURS SUBQ 08/03/18 09:00 08/28/18 08:59 08/06/18 21:00 Insulin Aspart (NovoLOG) BEFORE MEALS AND HS SUBQ 08/03/18 11:30 08/31/18 07:29 08/06/18 16:42 Insulin Aspart (NovoLOG) 4 units NOVOTIAC SUBQ 08/04/18 06:30 09/03/18 06:29 08/06/18 16:41 Insulin Detemir (Levemir) 9 units BID SUBQ 08/04/18 09:00 09/03/18 08:59 08/06/18 18:12 Magnesium Oxide (Mag-Ox 400mg) 400 mg THREE TIMES A DAY ORAL 08/03/18 09:00 09/01/18 09:29 08/06/18 17:14 Pantoprazole (Protonix) 40 mg EVERY 12 HOURS ORAL 08/03/18 09:00 08/31/18 20:59 08/06/18 20:58 Quetiapine Fumarate (SEROquel) 25 mg Q6H PRN ORAL For Anxiety 08/03/18 08:30 08/31/18 08:29 Sevelamer Carbonate (Renvela) 800 mg THREE TIMES A DAY ORAL 08/03/18 09:00 08/28/18 12:59 08/06/18 17:15 Sodium Citrate (Bicitra) 30 ml EVERY 6 HOURS ORAL 08/03/18 12:00 08/28/18 11:59 08/07/18 06:11 Vitamin B Complex/ Vit C/Folic Acid (Nephrovite) 1 tab DAILY ORAL 08/03/18 09:00 08/29/18 08:59 08/06/18 08:13 Item Value Date Time Bedside Blood Glucose 95 mg/dl 08/07/18 0700 Bedside Blood Glucose 44 mg/dl L 08/07/18 0605 Bedside Blood Glucose 96 mg/dl 08/06/18 2146 Bedside Blood Glucose 78 mg/dl 08/06/18 1812 Bedside Blood Glucose 272 mg/dl H 08/06/18 1135 Bedside Blood Glucose 246 mg/dl H 08/06/18 0818 Bedside Blood Glucose 80 mg/dl 08/06/18 0643 [place] Jacques MD Aug 07, 2018 07:58
[2018-08-07 08:00] VITALS: BP 103/52
[2018-08-07] MEDS: Nephrovite tab (Rena-Vite) ORAL SCH (08:25)
[2018-08-07] MEDS: Magnesium Oxide 400mg tab ORAL SCH ×3 (08:25→17:21)
[2018-08-07] MEDS: Heparin 5000 units/ml inj SUBQ SCH ×2 (08:26→20:57)
--- NOTE | 2018-08-07 09:34 | Urology Progress Note ---
Assessment/Plan Assessment/Plan 1. Urinary retention. 2. Neurogenic bladder. 3. History of chronic suprapubic tube. 4. BPH history. 5. History of end-stage renal disease. 6. Hematuria. 7. Pyuria. 8. Proteinuria. 9. Renal cysts. monitor clinically keep sp tube, last placed 08/01 hand irrigated and do PRN s/p abx recheck urine cx at some point Subjective Allergies: Coded Allergies: CEFEPIME (Verified Allergy, Intermediate, Rash, 03/01/18) Tolerates Carbapenem Subjective all noted, new sp tube draining well, occasional leakage Objective Last 24 Hour Vital Signs Date Time Temp Pulse Resp B/P (MAP) Pulse Ox O2 Delivery O2 Flow Rate FiO2 08/07/18 04:00 96.6 67 20 107/60 98 Room Air 08/06/18 21:00 Room Air 08/06/18 20:00 98.1 77 20 101/48 98 Room Air 08/06/18 16:00 97.6 95 18 123/67 98 Room Air 08/06/18 12:00 97.9 92 18 146/69 99 Room Air Intake and Output 08/06/18 08/07/18 19:00 07:00 Intake Total 600 ml Output Total 400 ml Balance 200 ml Intake Oral 600 ml Output Urine Total 400 ml # Voids 3 Microbiology Date/Time Source Procedure Growth Status 07/29/18 05:29 Blood Blood Culture - Final NO GROWTH AFTER 5 DAYS Complete 07/29/18 00:30 Nasal Nares MRSA Culture - Final Staphylococcus Aureus - Mrsa Complete 07/29/18 05:15 Urine,Clean Catch Urine Culture - Final Gram Positive Cocci Complete 07/29/18 00:30 Rectum VRE Culture - Final Enterococcus Faecalis - Vre Enterococcus Faecium - Vre Complete Current Medications Medications (Trade) Dose Ordered Sig/Dunia Route PRN Reason Start Time Stop Time Status Last Admin Dose Admin Dextrose (Dextrose 50%) 25 ml Q30M PRN IV Hypoglycemia 08/03/18 08:30 08/31/18 07:29 Dextrose (Dextrose 50%) 50 ml Q30M PRN IV Hypoglycemia 08/03/18 08:30 08/31/18 07:29 Duloxetine HCl (Cymbalta) 40 mg DAILY ORAL 08/03/18 09:00 09/02/18 08:59 08/07/18 08:24 Epoetin Jose (Epoetin Jose-EPBX(NON ESRD)) 10,000 unit WED-WED-WED SUBQ 08/03/18 21:00 09/02/18 20:59 08/05/18 21:08 Heparin Sodium (Porcine) (Heparin 5000 units/ml) 5,000 units EVERY 12 HOURS SUBQ 08/03/18 09:00 08/28/18 08:59 08/07/18 08:26 Insulin Aspart (NovoLOG) BEFORE MEALS AND HS SUBQ 08/03/18 11:30 08/31/18 07:29 08/06/18 16:42 Insulin Aspart (NovoLOG) 4 units NOVOTIAC SUBQ 08/04/18 06:30 09/03/18 06:29 08/06/18 16:41 Insulin Detemir (Levemir) 7 units Q12HR SUBQ 08/07/18 10:00 09/06/18 09:59 Magnesium Oxide (Mag-Ox 400mg) 400 mg THREE TIMES A DAY ORAL 08/03/18 09:00 09/01/18 09:29 08/07/18 08:25 Pantoprazole (Protonix) 40 mg EVERY 12 HOURS ORAL 08/03/18 09:00 08/31/18 20:59 08/07/18 08:25 Quetiapine Fumarate (SEROquel) 25 mg Q6H PRN ORAL For Anxiety 08/03/18 08:30 08/31/18 08:29 Sevelamer Carbonate (Renvela) 800 mg THREE TIMES A DAY ORAL 08/03/18 09:00 08/28/18 12:59 08/07/18 08:21 Sodium Citrate (Bicitra) 30 ml EVERY 6 HOURS ORAL 08/03/18 12:00 08/28/18 11:59 08/07/18 06:11 Vitamin B Complex/ Vit C/Folic Acid (Nephrovite) 1 tab DAILY ORAL 08/03/18 09:00 08/29/18 08:59 08/07/18 08:25 Height (Feet): 6 Height (Inches): 0.00 Weight (Pounds): 150 Objective exam stable Ye Rios MD Aug 07, 2018 09:34
[2018-08-07 10:09] LABS: BASOPHILS % (AUTO) 0.7 % (0.0-2.0); HEMATOCRIT 27.5 % (42.0-52.0); HEMOGLOBIN 9.1 G/DL (14.2-18.0); LYMPHOCYTES % (AUTO) 25.6 % (20.0-45.0); MEAN CORPUSCULAR VOLUME 92 FL (80-99); MONOCYTES % (AUTO) 11.4 % (1.0-10.0); NEUTROPHILS % (AUTO) 58.3 % (45.0-75.0); PLATELET COUNT 240 K/UL (150-450); RED BLOOD COUNT 2.98 M/UL (4.70-6.10); RED CELL DISTRIBUTION WIDTH 14.3 % (11.6-14.8)
[2018-08-07] MEDS: Levemir Flexpen SUBQ SCH ×2 (10:16→20:56)
[2018-08-07 10:18] LABS: ANION GAP 9 mmol/L (5-15); BLOOD UREA NITROGEN 49 mg/dL (7-18); CALCIUM 8.6 MG/DL (8.5-10.1); CARBON DIOXIDE 24 MMOL/L (21-32); CHLORIDE 103 MMOL/L (98-107); CREATININE 5.3 MG/DL (0.55-1.30); POTASSIUM 4.9 MMOL/L (3.5-5.1); SODIUM 136 MMOL/L (136-145)
[2018-08-07 12:00] VITALS: BP 106/55
--- NOTE | 2018-08-07 12:30 | Pulmonology Progress Note ---
Assessment/Plan Problems: (1) Encephalopathy acute (2) DKA (diabetic ketoacidoses) (3) Anemia in chronic kidney disease (4) CKD (chronic kidney disease), stage III (5) Major depressive disorder (6) Bladder outlet obstruction (7) Suprapubic catheter Assessment/Plan all reviewed creatinine lower doing better no new complains Bs better controlled Acidosis improving Add epogen for anemia pt refusing HD check electrolytes continue DNR dvt prophylaxis All medications and treatment were reviewed.med recon done, dc to alf today Subjective ROS Limited/Unobtainable: No Constitutional: Reports: no symptoms HEENT: Repors: no symptoms Allergies: Coded Allergies: CEFEPIME (Verified Allergy, Intermediate, Rash, 03/01/18) Tolerates Carbapenem Objective Last 24 Hour Vital Signs Date Time Temp Pulse Resp B/P (MAP) Pulse Ox O2 Delivery O2 Flow Rate FiO2 08/07/18 09:00 Room Air 08/07/18 08:00 98.0 78 20 103/52 98 Room Air 08/07/18 04:00 96.6 67 20 107/60 98 Room Air 08/06/18 21:00 Room Air 08/06/18 20:00 98.1 77 20 101/48 98 Room Air 08/06/18 16:00 97.6 95 18 123/67 98 Room Air Intake and Output 08/06/18 08/07/18 19:00 07:00 Intake Total 600 ml Output Total 400 ml Balance 200 ml Intake Oral 600 ml Output Urine Total 400 ml # Voids 3 Objective General Appearance: WD/WN HEENT: normocephalic, atraumatic, anicteric Respiratory/Chest: chest wall non-tender, lungs clear Breasts: no masses Cardiovascular: normal peripheral pulses, normal rate Abdomen: normal bowel sounds, soft, non tender Extremities: no cyanosis Skin: no rash 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 Lymphatic: no neck adenopathy Laboratory Tests 08/07/18 09:55: White Blood Count 5.0, Red Blood Count 2.98L, Hemoglobin 9.1L, Hematocrit 27.5L , Mean Corpuscular Volume 92, Mean Corpuscular Hemoglobin 30.4, Mean Corpuscular Hemoglobin Concent 32.9, Red Cell Distribution Width 14.3, Platelet Count 240, Mean Platelet Volume 6.8, Neutrophils (%) (Auto) 58.3, Lymphocytes (% ) (Auto) 25.6, Monocytes (%) (Auto) 11.4H, Eosinophils (%) (Auto) 4.0H, Basophils (%) (Auto) 0.7, Sodium Level 136, Potassium Level 4.9, Chloride Level 103, Carbon Dioxide Level 24, Anion Gap 9, Blood Urea Nitrogen 49H, Creatinine 5.3H, Estimat Glomerular Filtration Rate 11.0, Glucose Level 229H, Calcium Level 8.6 Current Medications Medications (Trade) Dose Ordered Sig/Dunia Route PRN Reason Start Time Stop Time Status Last Admin Dose Admin Dextrose (Dextrose 50%) 25 ml Q30M PRN IV Hypoglycemia 08/03/18 08:30 08/31/18 07:29 Dextrose (Dextrose 50%) 50 ml Q30M PRN IV Hypoglycemia 08/03/18 08:30 08/31/18 07:29 Duloxetine HCl (Cymbalta) 40 mg DAILY ORAL 08/03/18 09:00 09/02/18 08:59 08/07/18 08:24 Epoetin Jose (Epoetin Jose-EPBX(NON ESRD)) 10,000 unit WED-WED-WED SUBQ 08/03/18 21:00 09/02/18 20:59 08/05/18 21:08 Heparin Sodium (Porcine) (Heparin 5000 units/ml) 5,000 units EVERY 12 HOURS SUBQ 08/03/18 09:00 08/28/18 08:59 08/07/18 08:26 Insulin Aspart (NovoLOG) BEFORE MEALS AND HS SUBQ 08/03/18 11:30 08/31/18 07:29 08/07/18 11:31 Insulin Aspart (NovoLOG) 4 units NOVOTIAC SUBQ 08/04/18 06:30 09/03/18 06:29 08/07/18 12:17 Insulin Detemir (Levemir) 7 units Q12HR SUBQ 08/07/18 10:00 09/06/18 09:59 08/07/18 10:16 Magnesium Oxide (Mag-Ox 400mg) 400 mg THREE TIMES A DAY ORAL 08/03/18 09:00 09/01/18 09:29 08/07/18 12:15 Pantoprazole (Protonix) 40 mg EVERY 12 HOURS ORAL 08/03/18 09:00 08/31/18 20:59 08/07/18 08:25 Quetiapine Fumarate (SEROquel) 25 mg Q6H PRN ORAL For Anxiety 08/03/18 08:30 08/31/18 08:29 Sevelamer Carbonate (Renvela) 800 mg THREE TIMES A DAY ORAL 08/03/18 09:00 08/28/18 12:59 08/07/18 12:15 Sodium Citrate (Bicitra) 30 ml EVERY 6 HOURS ORAL 08/03/18 12:00 08/28/18 11:59 08/07/18 12:15 Vitamin B Complex/ Vit C/Folic Acid (Nephrovite) 1 tab DAILY ORAL 08/03/18 09:00 08/29/18 08:59 08/07/18 08:25 Esdras Delgado MD Aug 07, 2018 12:30
--- NOTE | 2018-08-07 13:25 | Internal Med Progress Note ---
Subjective Date of Service: Aug 07, 2018 Physician Name Jose Glasgow Attending Physician Christopher Rosado MD Current Medications Medications (Trade) Dose Ordered Sig/Dunia Route PRN Reason Start Time Stop Time Status Last Admin Dose Admin Dextrose (Dextrose 50%) 25 ml Q30M PRN IV Hypoglycemia 08/03/18 08:30 08/31/18 07:29 Dextrose (Dextrose 50%) 50 ml Q30M PRN IV Hypoglycemia 08/03/18 08:30 08/31/18 07:29 Duloxetine HCl (Cymbalta) 40 mg DAILY ORAL 08/03/18 09:00 09/02/18 08:59 08/07/18 08:24 Epoetin Jose (Epoetin Jose-EPBX(NON ESRD)) 10,000 unit WED-WED-WED SUBQ 08/03/18 21:00 09/02/18 20:59 08/05/18 21:08 Heparin Sodium (Porcine) (Heparin 5000 units/ml) 5,000 units EVERY 12 HOURS SUBQ 08/03/18 09:00 08/28/18 08:59 08/07/18 08:26 Insulin Aspart (NovoLOG) BEFORE MEALS AND HS SUBQ 08/03/18 11:30 08/31/18 07:29 08/07/18 11:31 Insulin Aspart (NovoLOG) 4 units NOVOTIAC SUBQ 08/04/18 06:30 09/03/18 06:29 08/07/18 12:17 Insulin Detemir (Levemir) 7 units Q12HR SUBQ 08/07/18 10:00 09/06/18 09:59 08/07/18 10:16 Magnesium Oxide (Mag-Ox 400mg) 400 mg THREE TIMES A DAY ORAL 08/03/18 09:00 09/01/18 09:29 08/07/18 12:15 Pantoprazole (Protonix) 40 mg EVERY 12 HOURS ORAL 08/03/18 09:00 08/31/18 20:59 08/07/18 08:25 Quetiapine Fumarate (SEROquel) 25 mg Q6H PRN ORAL For Anxiety 08/03/18 08:30 08/31/18 08:29 Sevelamer Carbonate (Renvela) 800 mg THREE TIMES A DAY ORAL 08/03/18 09:00 08/28/18 12:59 08/07/18 12:15 Sodium Citrate (Bicitra) 30 ml EVERY 6 HOURS ORAL 08/03/18 12:00 08/28/18 11:59 08/07/18 12:15 Vitamin B Complex/ Vit C/Folic Acid (Nephrovite) 1 tab DAILY ORAL 08/03/18 09:00 08/29/18 08:59 08/07/18 08:25 Allergies: Coded Allergies: CEFEPIME (Verified Allergy, Intermediate, Rash, 03/01/18) Tolerates Carbapenem ROS Limited/Unobtainable: No Constitutional: Reports: no symptoms HEENT: Reports: no symptoms Cardiovascular: Reports: no symptoms Respiratory: Reports: no symptoms Gastrointestinal/Abdominal: Reports: no symptoms Genitourinary: Reports: no symptoms Neurologic/Psychiatric: Reports: no symptoms Subjective 63 YO M with history of diabetes I admitted with hyperglycemia and DKA. Cover for Int Med-Dr Rosado. Await acceptance to [facility] Objective Last Vital Signs Date Time Temp Pulse Resp B/P (MAP) Pulse Ox O2 Delivery O2 Flow Rate FiO2 08/07/18 09:00 Room Air 08/07/18 08:00 98.0 78 20 103/52 98 08/05/18 03:29 21 Laboratory Tests Test 08/07/18 09:55 White Blood Count 5.0 K/UL (4.8-10.8) Red Blood Count 2.98 M/UL (4.70-6.10) L Hemoglobin 9.1 G/DL (14.2-18.0) L Hematocrit 27.5 % (42.0-52.0) L Mean Corpuscular Volume 92 FL (80-99) Mean Corpuscular Hemoglobin 30.4 PG (27.0-31.0) Mean Corpuscular Hemoglobin Concent 32.9 G/DL (32.0-36.0) Red Cell Distribution Width 14.3 % (11.6-14.8) Platelet Count 240 K/UL (150-450) Mean Platelet Volume 6.8 FL (6.5-10.1) Neutrophils (%) (Auto) 58.3 % (45.0-75.0) Lymphocytes (%) (Auto) 25.6 % (20.0-45.0) Monocytes (%) (Auto) 11.4 % (1.0-10.0) H Eosinophils (%) (Auto) 4.0 % (0.0-3.0) H Basophils (%) (Auto) 0.7 % (0.0-2.0) Sodium Level 136 MMOL/L (136-145) Potassium Level 4.9 MMOL/L (3.5-5.1) Chloride Level 103 MMOL/L (98-107) Carbon Dioxide Level 24 MMOL/L (21-32) Anion Gap 9 mmol/L (5-15) Blood Urea Nitrogen 49 mg/dL (7-18) H Creatinine 5.3 MG/DL (0.55-1.30) H Estimat Glomerular Filtration Rate 11.0 mL/min (>60) Glucose Level 229 MG/DL (74-106) H Calcium Level 8.6 MG/DL (8.5-10.1) Intake and Output 08/06/18 08/07/18 18:59 06:59 Intake Total 600 ml Output Total 400 ml Balance 200 ml Intake Oral 600 ml Output Urine Total 400 ml # Voids 3 Objective GENERAL: The patient is awake and responsive but confused, in no acute distress. HEAD AND NECK: Pupils are equal and reactive to light. Extraocular movements are intact in the right eye. Left eye blindness, Neck was supple. No JVD. LUNGS: fair air entry. No wheezing or rales. HEART: S1 and S2. Distant heart sounds. No Murmur or gallops. ABDOMEN: Soft, nontender, and nontender. Suprapubic catheter was noted. EXTREMITIES: No cyanosis or clubbing. Bilateral lower extremity trace LE's edema. NEUROLOGIC: Cranial nerves II through XII grossly intact. Motor is 5/5 in all extremities. Gait was not assessed due to the patient's status. Assessment/Plan Assessment/Plan ASSESSMENT: 1. DKA. 2. Hypertension. 3. Dyslipidemia. 4. Diabetes type 1 with prior history of diabetic ketoacidosis. 5. Diabetic retinopathy of the left eye blindness. 6. End-stage renal disease secondary to diabetic nephrosclerosis. 7. Coronary artery disease with prior history of myocardial infarction. 8. 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 9. 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 10. Secondary hyperparathyroidism with vitamin D deficiency. 11. Anemia of chronic kidney disease. 12. Metabolic acidosis. 13. Depression with prior suicide attempt. 14. Acute encephalopathy due to toxic metabolic encephalopathy due to DKA. PLAN: 1. Med/surg 2. Code status is DNR/DNI as per POLST in the chart. 3. Resume senior care medications. 4. Follow up with Labs and culture. 5. Broad spectrum antibiotic with Meropenem. 6. DVT prophylaxis, heparin subcutaneous. 7. We will follow up with Dr. Delgado with critical care , Dr. Chambers from Nephrology and Dr. Rich Wick from Infectious Disease. 8. We will follow up with the cultures and laboratory in the morning. 9. Levemir and Insulin sliding scale per endocrinology 10. Discharge planning: SNF when bed available. Jose Glasgow MD Aug 07, 2018 13:25
[2018-08-07 16:00] VITALS: BP 110/58
--- NOTE | 2018-08-07 18:44 | Nephrology Progress Note ---
Assessment/Plan Problem List: (1) Bladder outlet obstruction (2) Acute on chronic renal failure (3) Anemia in chronic kidney disease (4) BPH (benign prostatic hypertrophy) (5) DKA (diabetic ketoacidoses) (6) Encephalopathy acute Assessment High Glucose now improved ESRD , in need of dialysis , refuses- presents with high K Encephalopathy , Metabolic Acidosis , Uremic and Diabetic Sever Anemia: Mixed etiology HTn, but presents with low BP Supra Pubic Cath, h/o UTI, BPH Psych disease CAD, elevated Troponin I s/p DKAs Plan DC IV Bicarb Transfuse as needed Sugar control will do poorly in view of no dialysis plans DNR per orders Subjective ROS Limited/Unobtainable: No Constitutional: Reports: malaise Objective Objective Last 24 Hour Vital Signs Date Time Temp Pulse Resp B/P (MAP) Pulse Ox O2 Delivery O2 Flow Rate FiO2 08/07/18 16:00 98.0 79 20 110/58 98 Room Air 08/07/18 12:00 98.6 81 20 106/55 98 Room Air 08/07/18 09:00 Room Air 08/07/18 08:00 98.0 78 20 103/52 98 Room Air 08/07/18 04:00 96.6 67 20 107/60 98 Room Air 08/06/18 21:00 Room Air 08/06/18 20:00 98.1 77 20 101/48 98 Room Air Intake and Output 08/06/18 08/07/18 18:59 06:59 Intake Total 600 ml Output Total 400 ml Balance 200 ml Intake Oral 600 ml Output Urine Total 400 ml # Voids 3 Laboratory Tests 08/07/18 09:55: White Blood Count 5.0, Red Blood Count 2.98L, Hemoglobin 9.1L, Hematocrit 27.5L , Mean Corpuscular Volume 92, Mean Corpuscular Hemoglobin 30.4, Mean Corpuscular Hemoglobin Concent 32.9, Red Cell Distribution Width 14.3, Platelet Count 240, Mean Platelet Volume 6.8, Neutrophils (%) (Auto) 58.3, Lymphocytes (% ) (Auto) 25.6, Monocytes (%) (Auto) 11.4H, Eosinophils (%) (Auto) 4.0H, Basophils (%) (Auto) 0.7, Sodium Level 136, Potassium Level 4.9, Chloride Level 103, Carbon Dioxide Level 24, Anion Gap 9, Blood Urea Nitrogen 49H, Creatinine 5.3H, Estimat Glomerular Filtration Rate 11.0, Glucose Level 229H, Calcium Level 8.6 Height (Feet): 6 Height (Inches): 0.00 Weight (Pounds): 150 General Appearance: no apparent distress Objective no change Luis Chambers MD Aug 07, 2018 18:44
--- NOTE | 2018-08-07 19:28 | NUR ---
HAND-OFF: Report given to NICOLE Jewell.
--- NOTE | 2018-08-07 19:46 | NUR ---
NURSE NOTES: Received report from NICOLE Rodriguez and Bonnie Miller RN. Patient sleeping. IV intact, patent, and saline locked. Suprapubic catheter, intact, patent, and draining urine. On room air. Bed in lowest position with call light in reach. Will continue with plan of care.
--- NOTE | 2018-08-07 20:29 | General Progress Note ---
Assessment/Plan Problem List: (1) encephalopathy due to metabolic do (2) Major depressive disorder ICD Codes: F32.9 - Major depressive disorder, single episode, unspecified SNOMED: 836778994 Assessment/Plan cont Cymbalta 40mg qam seroquel 25mg q6hr prn agitation provided ro/st Subjective Neurologic/Psychiatric: Reports: anxiety, depressed, emotional problems Allergies: Coded Allergies: CEFEPIME (Verified Allergy, Intermediate, Rash, 03/01/18) Tolerates Carbapenem Subjective the pt is doing well no complaints. Objective Last 24 Hour Vital Signs Date Time Temp Pulse Resp B/P (MAP) Pulse Ox O2 Delivery O2 Flow Rate FiO2 08/07/18 16:00 98.0 79 20 110/58 98 Room Air 08/07/18 12:00 98.6 81 20 106/55 98 Room Air 08/07/18 09:00 Room Air 08/07/18 08:00 98.0 78 20 103/52 98 Room Air 08/07/18 04:00 96.6 67 20 107/60 98 Room Air 08/06/18 21:00 Room Air Intake and Output 08/06/18 08/07/18 19:00 07:00 Intake Total 600 ml Output Total 400 ml Balance 200 ml Intake Oral 600 ml Output Urine Total 400 ml # Voids 3 Laboratory Tests 08/07/18 09:55: White Blood Count 5.0, Red Blood Count 2.98L, Hemoglobin 9.1L, Hematocrit 27.5L , Mean Corpuscular Volume 92, Mean Corpuscular Hemoglobin 30.4, Mean Corpuscular Hemoglobin Concent 32.9, Red Cell Distribution Width 14.3, Platelet Count 240, Mean Platelet Volume 6.8, Neutrophils (%) (Auto) 58.3, Lymphocytes (% ) (Auto) 25.6, Monocytes (%) (Auto) 11.4H, Eosinophils (%) (Auto) 4.0H, Basophils (%) (Auto) 0.7, Sodium Level 136, Potassium Level 4.9, Chloride Level 103, Carbon Dioxide Level 24, Anion Gap 9, Blood Urea Nitrogen 49H, Creatinine 5.3H, Estimat Glomerular Filtration Rate 11.0, Glucose Level 229H, Calcium Level 8.6 Height (Feet): 6 Height (Inches): 0.00 Weight (Pounds): 150 Fatmata Lu MD Aug 07, 2018 20:29
[2018-08-08] VITALS: BP 127/63
[2018-08-08 04:00] VITALS: BP 120/70
[2018-08-08] MEDS: NovoLOG Insulin Flexpen SUBQ SCH ×7 (06:04→22:04)
[2018-08-08] MEDS: Sodium Citrate 30ml ORAL SCH ×4 (06:04→23:51)
--- NOTE | 2018-08-08 06:44 | General Progress Note ---
Assessment/Plan Problem List: (1) DKA (diabetic ketoacidoses) ICD Codes: E13.10 - DKA (diabetic ketoacidoses) SNOMED: 17945306 Qualifiers: Qualified Codes: E10.10 - Type 1 diabetes mellitus with ketoacidosis without coma (2) CKD (chronic kidney disease), stage III ICD Codes: N18.3 - CKD (chronic kidney disease), stage III SNOMED: 843930671 (3) encephalopathy due to metabolic do (4) Pulmonary HTN ICD Codes: I27.0 - Pulmonary HTN SNOMED: 34882701 Assessment/Plan continue Levemir 7 units bid - do not hold without notifying me continue Novolog 4 units ac tid NISS ac / hs Subjective ROS Limited/Unobtainable: Yes Allergies: Coded Allergies: CEFEPIME (Verified Allergy, Intermediate, Rash, 03/01/18) Tolerates Carbapenem Subjective events noted Objective Last 24 Hour Vital Signs Date Time Temp Pulse Resp B/P (MAP) Pulse Ox O2 Delivery O2 Flow Rate FiO2 08/08/18 04:00 97.2 80 19 120/70 98 Room Air 08/08/18 00:00 97.0 87 18 127/63 97 Room Air 08/07/18 21:00 Room Air 08/07/18 16:00 98.0 79 20 110/58 98 Room Air 08/07/18 12:00 98.6 81 20 106/55 98 Room Air 08/07/18 09:00 Room Air 08/07/18 08:00 98.0 78 20 103/52 98 Room Air Intake and Output 08/07/18 08/08/18 19:00 07:00 Intake Total 880 ml 400 ml Output Total 1200 ml 700 ml Balance -320 ml -300 ml Intake Oral 880 ml 400 ml Output Urine Total 1200 ml 700 ml Laboratory Tests 08/07/18 09:55: White Blood Count 5.0, Red Blood Count 2.98L, Hemoglobin 9.1L, Hematocrit 27.5L , Mean Corpuscular Volume 92, Mean Corpuscular Hemoglobin 30.4, Mean Corpuscular Hemoglobin Concent 32.9, Red Cell Distribution Width 14.3, Platelet Count 240, Mean Platelet Volume 6.8, Neutrophils (%) (Auto) 58.3, Lymphocytes (% ) (Auto) 25.6, Monocytes (%) (Auto) 11.4H, Eosinophils (%) (Auto) 4.0H, Basophils (%) (Auto) 0.7, Sodium Level 136, Potassium Level 4.9, Chloride Level 103, Carbon Dioxide Level 24, Anion Gap 9, Blood Urea Nitrogen 49H, Creatinine 5.3H, Estimat Glomerular Filtration Rate 11.0, Glucose Level 229H, Calcium Level 8.6 Height (Feet): 6 Height (Inches): 0.00 Weight (Pounds): 151 General Appearance: no apparent distress Neck: normal alignment Cardiovascular: normal rate Respiratory/Chest: lungs clear Abdomen: normal bowel sounds Objective Current Medications Medications (Trade) Dose Ordered Sig/Dunia Route PRN Reason Start Time Stop Time Status Last Admin Dose Admin Dextrose (Dextrose 50%) 25 ml Q30M PRN IV Hypoglycemia 08/03/18 08:30 08/31/18 07:29 Dextrose (Dextrose 50%) 50 ml Q30M PRN IV Hypoglycemia 08/03/18 08:30 08/31/18 07:29 08/08/18 06:08 Duloxetine HCl (Cymbalta) 40 mg DAILY ORAL 08/03/18 09:00 09/02/18 08:59 08/07/18 08:24 Epoetin Jose (Epoetin Jose-EPBX(NON ESRD)) 10,000 unit WED-WED-WED SUBQ 08/03/18 21:00 09/02/18 20:59 08/05/18 21:08 Heparin Sodium (Porcine) (Heparin 5000 units/ml) 5,000 units EVERY 12 HOURS SUBQ 08/03/18 09:00 08/28/18 08:59 08/07/18 20:57 Insulin Aspart (NovoLOG) BEFORE MEALS AND HS SUBQ 08/03/18 11:30 08/31/18 07:29 08/07/18 20:55 Insulin Aspart (NovoLOG) 4 units NOVOTIAC SUBQ 08/04/18 06:30 09/03/18 06:29 08/07/18 17:20 Insulin Detemir (Levemir) 7 units Q12HR SUBQ 08/07/18 10:00 09/06/18 09:59 08/07/18 20:56 Magnesium Oxide (Mag-Ox 400mg) 400 mg THREE TIMES A DAY ORAL 08/03/18 09:00 2/21/19 09:29 08/07/18 17:21 Pantoprazole (Protonix) 40 mg EVERY 12 HOURS ORAL 08/03/18 09:00 08/31/18 20:59 08/07/18 20:53 Quetiapine Fumarate (SEROquel) 25 mg Q6H PRN ORAL For Anxiety 08/03/18 08:30 08/31/18 08:29 Sevelamer Carbonate (Renvela) 800 mg THREE TIMES A DAY ORAL 08/03/18 09:00 08/28/18 12:59 08/07/18 17:21 Sodium Citrate (Bicitra) 30 ml EVERY 6 HOURS ORAL 08/03/18 12:00 08/28/18 11:59 08/08/18 06:04 Vitamin B Complex/ Vit C/Folic Acid (Nephrovite) 1 tab DAILY ORAL 08/03/18 09:00 08/29/18 08:59 08/07/18 08:25 Item Value Date Time Bedside Blood Glucose 153 mg/dl H 08/08/18 0634 Bedside Blood Glucose 138 mg/dl H 08/07/18 2056 Bedside Blood Glucose 96 mg/dl 08/07/18 1720 Bedside Blood Glucose 251 mg/dl H 08/07/18 1217 Modesto Jacques MD Aug 08, 2018 06:44
--- NOTE | 2018-08-08 06:59 | NUR ---
NURSE NOTES: 0600 BS was 44. Held scheduled and sliding scale novolog and gave 50ML 50% dextrose. About 15 mins later, BS was 153. Notified Dr. Jacques. Okay that novolog was held but still does not want Levemir held. Will endorse to day shift about levemir.
--- NOTE | 2018-08-08 07:50 | NUR ---
HAND-OFF: Report given to Cristy Miller RN.
--- NOTE | 2018-08-08 07:53 | Urology Progress Note ---
Assessment/Plan Assessment/Plan 1. Urinary retention. 2. Neurogenic bladder. 3. History of chronic suprapubic tube. 4. BPH history. 5. History of end-stage renal disease. 6. Hematuria. 7. Pyuria. 8. Proteinuria. 9. Renal cysts. monitor clinically keep sp tube, last exchanged 08/01 hand irrigate PRN s/p abx recheck urine cx at some point Subjective Allergies: Coded Allergies: CEFEPIME (Verified Allergy, Intermediate, Rash, 03/01/18) Tolerates Carbapenem Subjective all noted, new sp tube draining well, occasional leakage Objective Last 24 Hour Vital Signs Date Time Temp Pulse Resp B/P (MAP) Pulse Ox O2 Delivery O2 Flow Rate FiO2 08/08/18 04:00 97.2 80 19 120/70 98 Room Air 08/08/18 00:00 97.0 87 18 127/63 97 Room Air 08/07/18 21:00 Room Air 08/07/18 16:00 98.0 79 20 110/58 98 Room Air 08/07/18 12:00 98.6 81 20 106/55 98 Room Air 08/07/18 09:00 Room Air 08/07/18 08:00 98.0 78 20 103/52 98 Room Air Intake and Output 08/07/18 08/08/18 19:00 07:00 Intake Total 880 ml 400 ml Output Total 1200 ml 700 ml Balance -320 ml -300 ml Intake Oral 880 ml 400 ml Output Urine Total 1200 ml 700 ml Microbiology Date/Time Source Procedure Growth Status 07/29/18 05:29 Blood Blood Culture - Final NO GROWTH AFTER 5 DAYS Complete 07/29/18 00:30 Nasal Nares MRSA Culture - Final Staphylococcus Aureus - Mrsa Complete 07/29/18 05:15 Urine,Clean Catch Urine Culture - Final Gram Positive Cocci Complete 07/29/18 00:30 Rectum VRE Culture - Final Enterococcus Faecalis - Vre Enterococcus Faecium - Vre Complete Current Medications Medications (Trade) Dose Ordered Sig/Dunia Route PRN Reason Start Time Stop Time Status Last Admin Dose Admin Dextrose (Dextrose 50%) 25 ml Q30M PRN IV Hypoglycemia 08/03/18 08:30 08/31/18 07:29 Dextrose (Dextrose 50%) 50 ml Q30M PRN IV Hypoglycemia 08/03/18 08:30 08/31/18 07:29 08/08/18 06:08 Duloxetine HCl (Cymbalta) 40 mg DAILY ORAL 08/03/18 09:00 09/02/18 08:59 08/07/18 08:24 Epoetin Jose (Epoetin Jose-EPBX(NON ESRD)) 10,000 unit WED-WED-WED SUBQ 08/03/18 21:00 09/02/18 20:59 08/05/18 21:08 Heparin Sodium (Porcine) (Heparin 5000 units/ml) 5,000 units EVERY 12 HOURS SUBQ 08/03/18 09:00 08/28/18 08:59 08/07/18 20:57 Insulin Aspart (NovoLOG) BEFORE MEALS AND HS SUBQ 08/03/18 11:30 08/31/18 07:29 08/07/18 20:55 Insulin Aspart (NovoLOG) 4 units NOVOTIAC SUBQ 08/04/18 06:30 09/03/18 06:29 08/07/18 17:20 Insulin Detemir (Levemir) 7 units Q12HR SUBQ 08/07/18 10:00 09/06/18 09:59 08/07/18 20:56 Magnesium Oxide (Mag-Ox 400mg) 400 mg THREE TIMES A DAY ORAL 08/03/18 09:00 09/01/18 09:29 08/07/18 17:21 Pantoprazole (Protonix) 40 mg EVERY 12 HOURS ORAL 08/03/18 09:00 08/31/18 20:59 08/07/18 20:53 Quetiapine Fumarate (SEROquel) 25 mg Q6H PRN ORAL For Anxiety 08/03/18 08:30 08/31/18 08:29 Sevelamer Carbonate (Renvela) 800 mg THREE TIMES A DAY ORAL 08/03/18 09:00 08/28/18 12:59 08/07/18 17:21 Sodium Citrate (Bicitra) 30 ml EVERY 6 HOURS ORAL 08/03/18 12:00 08/28/18 11:59 08/08/18 06:04 Vitamin B Complex/ Vit C/Folic Acid (Nephrovite) 1 tab DAILY ORAL 08/03/18 09:00 08/29/18 08:59 08/07/18 08:25 Laboratory Tests 08/07/18 09:55: White Blood Count 5.0, Red Blood Count 2.98L, Hemoglobin 9.1L, Hematocrit 27.5L , Mean Corpuscular Volume 92, Mean Corpuscular Hemoglobin 30.4, Mean Corpuscular Hemoglobin Concent 32.9, Red Cell Distribution Width 14.3, Platelet Count 240, Mean Platelet Volume 6.8, Neutrophils (%) (Auto) 58.3, Lymphocytes (% ) (Auto) 25.6, Monocytes (%) (Auto) 11.4H, Eosinophils (%) (Auto) 4.0H, Basophils (%) (Auto) 0.7, Sodium Level 136, Potassium Level 4.9, Chloride Level 103, Carbon Dioxide Level 24, Anion Gap 9, Blood Urea Nitrogen 49H, Creatinine 5.3H, Estimat Glomerular Filtration Rate 11.0, Glucose Level 229H, Calcium Level 8.6 Height (Feet): 6 Height (Inches): 0.00 Weight (Pounds): 151 Objective exam stable Ye Rios MD Aug 08, 2018 07:53
[2018-08-08 08:00] VITALS: BP 108/51
[2018-08-08 08:29] LABS: BASOPHILS % (AUTO) 0.7 % (0.0-2.0); EOSINOPHILS % (AUTO) 4.5 % (0.0-3.0); HEMATOCRIT 27.5 % (42.0-52.0); LYMPHOCYTES % (AUTO) 25.6 % (20.0-45.0); MEAN CORPUSCULAR VOLUME 94 FL (80-99); MONOCYTES % (AUTO) 7.7 % (1.0-10.0); NEUTROPHILS % (AUTO) 61.5 % (45.0-75.0); PLATELET COUNT 240 K/UL (150-450); RED BLOOD COUNT 2.93 M/UL (4.70-6.10); RED CELL DISTRIBUTION WIDTH 14.7 % (11.6-14.8); WHITE BLOOD COUNT 5.7 K/UL (4.8-10.8)
[2018-08-08] MEDS: Nephrovite tab (Rena-Vite) ORAL SCH (09:02)
[2018-08-08] MEDS: Magnesium Oxide 400mg tab ORAL SCH ×3 (09:02→17:09)
[2018-08-08] MEDS: Heparin 5000 units/ml inj SUBQ SCH ×2 (09:03→22:03)
[2018-08-08 09:05] LABS: ANION GAP 11 mmol/L (5-15); BLOOD UREA NITROGEN 48 mg/dL (7-18); CALCIUM 8.6 MG/DL (8.5-10.1); CARBON DIOXIDE 24 MMOL/L (21-32); CHLORIDE 104 MMOL/L (98-107); CREATININE 5.5 MG/DL (0.55-1.30); POTASSIUM 4.5 MMOL/L (3.5-5.1); SODIUM 139 MMOL/L (136-145)
[2018-08-08] MEDS: Levemir Flexpen SUBQ SCH ×2 (09:05→22:03)
--- NOTE | 2018-08-08 09:45 | NUR ---
NURSE NOTES: pt in bed with no sob nor in any form of distress noted. IV intact and patent. no s/s of hyper/hypoglycemia noted. denies any pain at this time. will continue to monitor
--- NOTE | 2018-08-08 10:02 | Infectious Diseases Prog Note ---
Assessment/Plan Assessment/Plan Severe sepsis -likely 2ry to UTI- SP, s/p rx -u.a wbc tntc, nit neg, luek +3; ucx <10k GPC -Bcx Neg -CXR: Suspected atelectasis or scarring right Afebrile Leukocytosis, SP DKA RIVKA, improving hx of recent sepsis 2ry to UTI and bacteremia 07/08/18 UCx - P.a. MDR and Providencia 07/08/18 BCx ESBL Proteus and K. pneumo Dm2 HLD MDD with suicidal attempts in the past w/ resultant chronic encephalopathy CAD/KS BPH anemia asthma colonic polyps ESRD s/p renal and pancreas tx ~10 yrs ago now CKD 4 ConS bacteremia/line infection urinary retention s/p suprapubic catheter 09/2017 recurrent hematuria multiple hospital admissions recurrent UTI DNR Plan: - Continue to monitor off abx as clinically stable -08/02 SP Meropenem d# 5 07/29 SP one dose Amikacin -07/22 SP Meropenem, #14 - f/u cx -Monitor CBC/CMP, temperatures Subjective Allergies: Coded Allergies: CEFEPIME (Verified Allergy, Intermediate, Rash, 03/01/18) Tolerates Carbapenem Subjective Afebrile No leukocytosis Objective Vital Signs Last 24 Hour Vital Signs Date Time Temp Pulse Resp B/P (MAP) Pulse Ox O2 Delivery O2 Flow Rate FiO2 08/08/18 09:33 Room Air 08/08/18 04:00 97.2 80 19 120/70 98 Room Air 08/08/18 00:00 97.0 87 18 127/63 97 Room Air 08/07/18 21:00 Room Air 08/07/18 16:00 98.0 79 20 110/58 98 Room Air 08/07/18 12:00 98.6 81 20 106/55 98 Room Air Height (Feet): 6 Height (Inches): 0.00 Weight (Pounds): 151 Objective Condition: NAD, laying in bed HEENT: NCAT, MMM Lungs: chest wall tender Heart: HR/BP stable, Abdomen: soft, non-tender, ND Extremities: no C/C/E Laboratory Tests Test 08/08/18 07:50 White Blood Count 5.7 K/UL (4.8-10.8) Red Blood Count 2.93 M/UL (4.70-6.10) L Hemoglobin 9.0 G/DL (14.2-18.0) L Hematocrit 27.5 % (42.0-52.0) L Mean Corpuscular Volume 94 FL (80-99) Mean Corpuscular Hemoglobin 30.9 PG (27.0-31.0) Mean Corpuscular Hemoglobin Concent 32.9 G/DL (32.0-36.0) Red Cell Distribution Width 14.7 % (11.6-14.8) Platelet Count 240 K/UL (150-450) Mean Platelet Volume 6.6 FL (6.5-10.1) Neutrophils (%) (Auto) 61.5 % (45.0-75.0) Lymphocytes (%) (Auto) 25.6 % (20.0-45.0) Monocytes (%) (Auto) 7.7 % (1.0-10.0) Eosinophils (%) (Auto) 4.5 % (0.0-3.0) H Basophils (%) (Auto) 0.7 % (0.0-2.0) Sodium Level 139 MMOL/L (136-145) Potassium Level 4.5 MMOL/L (3.5-5.1) Chloride Level 104 MMOL/L (98-107) Carbon Dioxide Level 24 MMOL/L (21-32) Anion Gap 11 mmol/L (5-15) Blood Urea Nitrogen 48 mg/dL (7-18) H Creatinine 5.5 MG/DL (0.55-1.30) H Estimat Glomerular Filtration Rate 10.5 mL/min (>60) Glucose Level 183 MG/DL (74-106) H Calcium Level 8.6 MG/DL (8.5-10.1) Current Medications Medications (Trade) Dose Ordered Sig/Dunia Route PRN Reason Start Time Stop Time Status Last Admin Dose Admin Dextrose (Dextrose 50%) 25 ml Q30M PRN IV Hypoglycemia 08/03/18 08:30 08/31/18 07:29 Dextrose (Dextrose 50%) 50 ml Q30M PRN IV Hypoglycemia 08/03/18 08:30 08/31/18 07:29 08/08/18 06:08 Duloxetine HCl (Cymbalta) 40 mg DAILY ORAL 08/03/18 09:00 09/02/18 08:59 08/08/18 09:02 Epoetin Jose (Epoetin Jose-EPBX(NON ESRD)) 10,000 unit WED-WED-WED SUBQ 08/03/18 21:00 09/02/18 20:59 08/05/18 21:08 Heparin Sodium (Porcine) (Heparin 5000 units/ml) 5,000 units EVERY 12 HOURS SUBQ 08/03/18 09:00 08/28/18 08:59 08/08/18 09:03 Insulin Aspart (NovoLOG) BEFORE MEALS AND HS SUBQ 08/03/18 11:30 08/31/18 07:29 08/07/18 20:55 Insulin Aspart (NovoLOG) 4 units NOVOTIAC SUBQ 08/04/18 06:30 09/03/18 06:29 08/07/18 17:20 Insulin Detemir (Levemir) 7 units Q12HR SUBQ 08/07/18 10:00 09/06/18 09:59 08/08/18 09:05 Magnesium Oxide (Mag-Ox 400mg) 400 mg THREE TIMES A DAY ORAL 08/03/18 09:00 09/01/18 09:29 08/08/18 09:02 Pantoprazole (Protonix) 40 mg EVERY 12 HOURS ORAL 08/03/18 09:00 08/31/18 20:59 08/08/18 09:02 Quetiapine Fumarate (SEROquel) 25 mg Q6H PRN ORAL For Anxiety 08/03/18 08:30 08/31/18 08:29 Sevelamer Carbonate (Renvela) 800 mg THREE TIMES A DAY ORAL 08/03/18 09:00 08/28/18 12:59 08/08/18 09:02 Sodium Citrate (Bicitra) 30 ml EVERY 6 HOURS ORAL 08/03/18 12:00 08/28/18 11:59 08/08/18 06:04 Vitamin B Complex/ Vit C/Folic Acid (Nephrovite) 1 tab DAILY ORAL 08/03/18 09:00 08/29/18 08:59 08/08/18 09:02 William Caputo MD Aug 08, 2018 10:02
[2018-08-08 12:00] VITALS: BP 120/61
--- NOTE | 2018-08-08 12:53 | General Progress Note ---
Assessment/Plan Problem List: (1) encephalopathy due to metabolic do (2) Major depressive disorder ICD Codes: F32.9 - Major depressive disorder, single episode, unspecified SNOMED: 743578886 Status: stable Assessment/Plan cont Cymbalta 40mg qam seroquel 25mg q6hr prn agitation provided ro/st Subjective Neurologic/Psychiatric: Reports: anxiety, depressed, emotional problems Allergies: Coded Allergies: CEFEPIME (Verified Allergy, Intermediate, Rash, 03/01/18) Tolerates Carbapenem Subjective the pt is low energy depressed no complaints. Objective Last 24 Hour Vital Signs Date Time Temp Pulse Resp B/P (MAP) Pulse Ox O2 Delivery O2 Flow Rate FiO2 08/08/18 12:00 98.8 83 19 120/61 95 Room Air 08/08/18 09:33 Room Air 08/08/18 08:00 98.2 88 19 108/51 98 Room Air 08/08/18 04:00 97.2 80 19 120/70 98 Room Air 08/08/18 00:00 97.0 87 18 127/63 97 Room Air 08/07/18 21:00 Room Air 08/07/18 16:00 98.0 79 20 110/58 98 Room Air Intake and Output 08/07/18 08/08/18 19:00 07:00 Intake Total 880 ml 400 ml Output Total 1200 ml 700 ml Balance -320 ml -300 ml Intake Oral 880 ml 400 ml Output Urine Total 1200 ml 700 ml Laboratory Tests 08/08/18 07:50: White Blood Count 5.7, Red Blood Count 2.93L, Hemoglobin 9.0L, Hematocrit 27.5L , Mean Corpuscular Volume 94, Mean Corpuscular Hemoglobin 30.9, Mean Corpuscular Hemoglobin Concent 32.9, Red Cell Distribution Width 14.7, Platelet Count 240, Mean Platelet Volume 6.6, Neutrophils (%) (Auto) 61.5, Lymphocytes (% ) (Auto) 25.6, Monocytes (%) (Auto) 7.7, Eosinophils (%) (Auto) 4.5H, Basophils (%) (Auto) 0.7, Sodium Level 139, Potassium Level 4.5, Chloride Level 104, Carbon Dioxide Level 24, Anion Gap 11, Blood Urea Nitrogen 48H, Creatinine 5.5H , Estimat Glomerular Filtration Rate 10.5, Glucose Level 183H, Calcium Level 8.6 Height (Feet): 6 Height (Inches): 0.00 Weight (Pounds): 151 General Appearance: no apparent distress, alert Neurologic: responsive, disoriented, depressed affect Fatmata Lu MD Aug 08, 2018 12:53
--- NOTE | 2018-08-08 13:01 | Nephrology Progress Note ---
Assessment/Plan Problem List: (1) Bladder outlet obstruction (2) Acute on chronic renal failure (3) Anemia in chronic kidney disease (4) BPH (benign prostatic hypertrophy) (5) DKA (diabetic ketoacidoses) (6) Encephalopathy acute Assessment High Glucose now improved ESRD , in need of dialysis , refuses- presents with high K Encephalopathy , Metabolic Acidosis , Uremic and Diabetic Sever Anemia: Mixed etiology HTn, but presents with low BP Supra Pubic Cath, h/o UTI, BPH Psych disease CAD, elevated Troponin I s/p DKAs Plan DC IV Bicarb Transfuse as needed Sugar control will do poorly in view of no dialysis plans DNR per orders Subjective ROS Limited/Unobtainable: No Constitutional: Reports: malaise, weakness Objective Objective Last 24 Hour Vital Signs Date Time Temp Pulse Resp B/P (MAP) Pulse Ox O2 Delivery O2 Flow Rate FiO2 08/08/18 12:00 98.8 83 19 120/61 95 Room Air 08/08/18 09:33 Room Air 08/08/18 08:00 98.2 88 19 108/51 98 Room Air 08/08/18 04:00 97.2 80 19 120/70 98 Room Air 08/08/18 00:00 97.0 87 18 127/63 97 Room Air 08/07/18 21:00 Room Air 08/07/18 16:00 98.0 79 20 110/58 98 Room Air Intake and Output 08/07/18 08/08/18 19:00 07:00 Intake Total 880 ml 400 ml Output Total 1200 ml 700 ml Balance -320 ml -300 ml Intake Oral 880 ml 400 ml Output Urine Total 1200 ml 700 ml Current Medications Medications (Trade) Dose Ordered Sig/Dunia Route PRN Reason Start Time Stop Time Status Last Admin Dose Admin Dextrose (Dextrose 50%) 25 ml Q30M PRN IV Hypoglycemia 08/03/18 08:30 08/31/18 07:29 Dextrose (Dextrose 50%) 50 ml Q30M PRN IV Hypoglycemia 08/03/18 08:30 08/31/18 07:29 08/08/18 06:08 Duloxetine HCl (Cymbalta) 40 mg DAILY ORAL 08/03/18 09:00 09/02/18 08:59 08/08/18 09:02 Epoetin Jose (Epoetin Jose-EPBX(NON ESRD)) 10,000 unit WED-WED-WED SUBQ 08/03/18 21:00 09/02/18 20:59 08/05/18 21:08 Heparin Sodium (Porcine) (Heparin 5000 units/ml) 5,000 units EVERY 12 HOURS SUBQ 08/03/18 09:00 08/28/18 08:59 08/08/18 09:03 Insulin Aspart (NovoLOG) BEFORE MEALS AND HS SUBQ 08/03/18 11:30 08/31/18 07:29 08/08/18 12:22 Insulin Aspart (NovoLOG) 4 units NOVOTIAC SUBQ 08/04/18 06:30 09/03/18 06:29 08/08/18 12:23 Insulin Detemir (Levemir) 7 units Q12HR SUBQ 08/07/18 10:00 09/06/18 09:59 08/08/18 09:05 Magnesium Oxide (Mag-Ox 400mg) 400 mg THREE TIMES A DAY ORAL 08/03/18 09:00 09/01/18 09:29 08/08/18 12:21 Pantoprazole (Protonix) 40 mg EVERY 12 HOURS ORAL 08/03/18 09:00 08/31/18 20:59 08/08/18 09:02 Quetiapine Fumarate (SEROquel) 25 mg Q6H PRN ORAL For Anxiety 08/03/18 08:30 08/31/18 08:29 Sevelamer Carbonate (Renvela) 800 mg THREE TIMES A DAY ORAL 08/03/18 09:00 08/28/18 12:59 08/08/18 12:21 Sodium Citrate (Bicitra) 30 ml EVERY 6 HOURS ORAL 08/03/18 12:00 08/28/18 11:59 08/08/18 12:21 Vitamin B Complex/ Vit C/Folic Acid (Nephrovite) 1 tab DAILY ORAL 08/03/18 09:00 08/29/18 08:59 08/08/18 09:02 Laboratory Tests 08/08/18 07:50: White Blood Count 5.7, Red Blood Count 2.93L, Hemoglobin 9.0L, Hematocrit 27.5L , Mean Corpuscular Volume 94, Mean Corpuscular Hemoglobin 30.9, Mean Corpuscular Hemoglobin Concent 32.9, Red Cell Distribution Width 14.7, Platelet Count 240, Mean Platelet Volume 6.6, Neutrophils (%) (Auto) 61.5, Lymphocytes (% ) (Auto) 25.6, Monocytes (%) (Auto) 7.7, Eosinophils (%) (Auto) 4.5H, Basophils (%) (Auto) 0.7, Sodium Level 139, Potassium Level 4.5, Chloride Level 104, Carbon Dioxide Level 24, Anion Gap 11, Blood Urea Nitrogen 48H, Creatinine 5.5H , Estimat Glomerular Filtration Rate 10.5, Glucose Level 183H, Calcium Level 8.6 Height (Feet): 6 Height (Inches): 0.00 Weight (Pounds): 151 Cardiovascular: normal rate Respiratory/Chest: decreased breath sounds Abdomen: distended Objective no change Luis Chambers MD Aug 08, 2018 13:01
--- NOTE | 2018-08-08 13:22 | NUR ---
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 98.9 HR 83 RR 19 B/P 120/61 BUN 48 CR 5.5 IS: HEPARIN SUBC LEVEMIR SUBC SEROQUEL PO MED/SURG STATUS
--- NOTE | 2018-08-08 14:58 | Pulmonology Progress Note ---
Assessment/Plan Problems: (1) Encephalopathy acute (2) DKA (diabetic ketoacidoses) (3) Anemia in chronic kidney disease (4) CKD (chronic kidney disease), stage III (5) Major depressive disorder (6) Bladder outlet obstruction (7) Suprapubic catheter Assessment/Plan all reviewed creatinine lower doing better no new complains Bs better controlled Acidosis improving Add epogen for anemia pt refusing HD check electrolytes continue DNR dvt prophylaxis All medications and treatment were reviewed.med recon done, dc to custodial today Subjective ROS Limited/Unobtainable: No Constitutional: Reports: no symptoms HEENT: Repors: no symptoms Allergies: Coded Allergies: CEFEPIME (Verified Allergy, Intermediate, Rash, 03/01/18) Tolerates Carbapenem Objective Last 24 Hour Vital Signs Date Time Temp Pulse Resp B/P (MAP) Pulse Ox O2 Delivery O2 Flow Rate FiO2 08/08/18 12:00 98.8 83 19 120/61 95 Room Air 08/08/18 09:33 Room Air 08/08/18 08:00 98.2 88 19 108/51 98 Room Air 08/08/18 04:00 97.2 80 19 120/70 98 Room Air 08/08/18 00:00 97.0 87 18 127/63 97 Room Air 08/07/18 21:00 Room Air 08/07/18 16:00 98.0 79 20 110/58 98 Room Air Intake and Output 08/07/18 08/08/18 19:00 07:00 Intake Total 880 ml 400 ml Output Total 1200 ml 700 ml Balance -320 ml -300 ml Intake Oral 880 ml 400 ml Output Urine Total 1200 ml 700 ml Objective General Appearance: WD/WN HEENT: normocephalic, atraumatic, anicteric Respiratory/Chest: chest wall non-tender, lungs clear Breasts: no masses Cardiovascular: normal peripheral pulses, normal rate Abdomen: normal bowel sounds, soft, non tender Extremities: no cyanosis Skin: no rash Neurologic/Psychiatric: continuous towel roller II-XII grossly normal Lymphatic: no neck adenopathy Laboratory Tests 08/08/18 07:50: White Blood Count 5.7, Red Blood Count 2.93L, Hemoglobin 9.0L, Hematocrit 27.5L , Mean Corpuscular Volume 94, Mean Corpuscular Hemoglobin 30.9, Mean Corpuscular Hemoglobin Concent 32.9, Red Cell Distribution Width 14.7, Platelet Count 240, Mean Platelet Volume 6.6, Neutrophils (%) (Auto) 61.5, Lymphocytes (% ) (Auto) 25.6, Monocytes (%) (Auto) 7.7, Eosinophils (%) (Auto) 4.5H, Basophils (%) (Auto) 0.7, Sodium Level 139, Potassium Level 4.5, Chloride Level 104, Carbon Dioxide Level 24, Anion Gap 11, Blood Urea Nitrogen 48H, Creatinine 5.5H , Estimat Glomerular Filtration Rate 10.5, Glucose Level 183H, Calcium Level 8.6 Current Medications Medications (Trade) Dose Ordered Sig/Dunia Route PRN Reason Start Time Stop Time Status Last Admin Dose Admin Dextrose (Dextrose 50%) 25 ml Q30M PRN IV Hypoglycemia 08/03/18 08:30 08/31/18 07:29 Dextrose (Dextrose 50%) 50 ml Q30M PRN IV Hypoglycemia 08/03/18 08:30 08/31/18 07:29 08/08/18 06:08 Duloxetine HCl (Cymbalta) 40 mg DAILY ORAL 08/03/18 09:00 09/02/18 08:59 08/08/18 09:02 Epoetin Jose (Epoetin Jose-EPBX(NON ESRD)) 10,000 unit WED-WED-WED SUBQ 08/03/18 21:00 09/02/18 20:59 08/05/18 21:08 Heparin Sodium (Porcine) (Heparin 5000 units/ml) 5,000 units EVERY 12 HOURS SUBQ 08/03/18 09:00 08/28/18 08:59 08/08/18 09:03 Insulin Aspart (NovoLOG) BEFORE MEALS AND HS SUBQ 08/03/18 11:30 08/31/18 07:29 08/08/18 12:22 Insulin Aspart (NovoLOG) 4 units NOVOTIAC SUBQ 08/04/18 06:30 09/03/18 06:29 08/08/18 12:23 Insulin Detemir (Levemir) 7 units Q12HR SUBQ 08/07/18 10:00 09/06/18 09:59 08/08/18 09:05 Magnesium Oxide (Mag-Ox 400mg) 400 mg THREE TIMES A DAY ORAL 08/03/18 09:00 09/01/18 09:29 08/08/18 12:21 Pantoprazole (Protonix) 40 mg EVERY 12 HOURS ORAL 08/03/18 09:00 08/31/18 20:59 08/08/18 09:02 Quetiapine Fumarate (SEROquel) 25 mg Q6H PRN ORAL For Anxiety 08/03/18 08:30 08/31/18 08:29 Sevelamer Carbonate (Renvela) 800 mg THREE TIMES A DAY ORAL 08/03/18 09:00 08/28/18 12:59 08/08/18 12:21 Sodium Citrate (Bicitra) 30 ml EVERY 6 HOURS ORAL 08/03/18 12:00 08/28/18 11:59 08/08/18 12:21 Vitamin B Complex/ Vit C/Folic Acid (Nephrovite) 1 tab DAILY ORAL 08/03/18 09:00 08/29/18 08:59 08/08/18 09:02 Esdras Delgado MD Aug 08, 2018 14:58
[2018-08-08 16:00] VITALS: BP 125/62
--- NOTE | 2018-08-08 17:57 | Internal Med Progress Note ---
Subjective Date of Service: Aug 08, 2018 Physician Name Glasgow,Jose Attending Physician Christopher Rosado MD Current Medications Medications (Trade) Dose Ordered Sig/Dunia Route PRN Reason Start Time Stop Time Status Last Admin Dose Admin Dextrose (Dextrose 50%) 25 ml Q30M PRN IV Hypoglycemia 08/03/18 08:30 08/31/18 07:29 Dextrose (Dextrose 50%) 50 ml Q30M PRN IV Hypoglycemia 08/03/18 08:30 08/31/18 07:29 08/08/18 06:08 Duloxetine HCl (Cymbalta) 40 mg DAILY ORAL 08/03/18 09:00 09/02/18 08:59 08/08/18 09:02 Epoetin Jose (Epoetin Jose-EPBX(NON ESRD)) 10,000 unit WED-WED-WED SUBQ 08/03/18 21:00 09/02/18 20:59 08/05/18 21:08 Heparin Sodium (Porcine) (Heparin 5000 units/ml) 5,000 units EVERY 12 HOURS SUBQ 08/03/18 09:00 08/28/18 08:59 08/08/18 09:03 Insulin Aspart (NovoLOG) BEFORE MEALS AND HS SUBQ 08/03/18 11:30 08/31/18 07:29 08/08/18 12:22 Insulin Aspart (NovoLOG) 4 units NOVOTIAC SUBQ 08/04/18 06:30 09/03/18 06:29 08/08/18 12:23 Insulin Detemir (Levemir) 7 units Q12HR SUBQ 08/07/18 10:00 09/06/18 09:59 08/08/18 09:05 Magnesium Oxide (Mag-Ox 400mg) 400 mg THREE TIMES A DAY ORAL 08/03/18 09:00 09/01/18 09:29 08/08/18 17:09 Pantoprazole (Protonix) 40 mg EVERY 12 HOURS ORAL 08/03/18 09:00 08/31/18 20:59 08/08/18 09:02 Quetiapine Fumarate (SEROquel) 25 mg Q6H PRN ORAL For Anxiety 08/03/18 08:30 08/31/18 08:29 Sevelamer Carbonate (Renvela) 800 mg THREE TIMES A DAY ORAL 08/03/18 09:00 08/28/18 12:59 08/08/18 17:09 Sodium Citrate (Bicitra) 30 ml EVERY 6 HOURS ORAL 08/03/18 12:00 08/28/18 11:59 08/08/18 17:09 Vitamin B Complex/ Vit C/Folic Acid (Nephrovite) 1 tab DAILY ORAL 08/03/18 09:00 08/29/18 08:59 08/08/18 09:02 Allergies: Coded Allergies: CEFEPIME (Verified Allergy, Intermediate, Rash, 03/01/18) Tolerates Carbapenem ROS Limited/Unobtainable: No Constitutional: Reports: no symptoms HEENT: Reports: no symptoms Cardiovascular: Reports: no symptoms Respiratory: Reports: no symptoms Gastrointestinal/Abdominal: Reports: no symptoms Genitourinary: Reports: no symptoms Neurologic/Psychiatric: Reports: no symptoms Subjective 63 YO M with history of diabetes I admitted with hyperglycemia and DKA. Cover for Int Med-Dr Rosado. Await acceptance to [facility] Objective Last Vital Signs Date Time Temp Pulse Resp B/P (MAP) Pulse Ox O2 Delivery O2 Flow Rate FiO2 08/08/18 16:00 99.0 85 19 125/62 96 Room Air 08/05/18 03:29 21 Laboratory Tests Test 08/08/18 07:50 White Blood Count 5.7 K/UL (4.8-10.8) Red Blood Count 2.93 M/UL (4.70-6.10) L Hemoglobin 9.0 G/DL (14.2-18.0) L Hematocrit 27.5 % (42.0-52.0) L Mean Corpuscular Volume 94 FL (80-99) Mean Corpuscular Hemoglobin 30.9 PG (27.0-31.0) Mean Corpuscular Hemoglobin Concent 32.9 G/DL (32.0-36.0) Red Cell Distribution Width 14.7 % (11.6-14.8) Platelet Count 240 K/UL (150-450) Mean Platelet Volume 6.6 FL (6.5-10.1) Neutrophils (%) (Auto) 61.5 % (45.0-75.0) Lymphocytes (%) (Auto) 25.6 % (20.0-45.0) Monocytes (%) (Auto) 7.7 % (1.0-10.0) Eosinophils (%) (Auto) 4.5 % (0.0-3.0) H Basophils (%) (Auto) 0.7 % (0.0-2.0) Sodium Level 139 MMOL/L (136-145) Potassium Level 4.5 MMOL/L (3.5-5.1) Chloride Level 104 MMOL/L (98-107) Carbon Dioxide Level 24 MMOL/L (21-32) Anion Gap 11 mmol/L (5-15) Blood Urea Nitrogen 48 mg/dL (7-18) H Creatinine 5.5 MG/DL (0.55-1.30) H Estimat Glomerular Filtration Rate 10.5 mL/min (>60) Glucose Level 183 MG/DL (74-106) H Calcium Level 8.6 MG/DL (8.5-10.1) Intake and Output 08/07/18 08/08/18 18:59 06:59 Intake Total 880 ml 400 ml Output Total 1200 ml 700 ml Balance -320 ml -300 ml Intake Oral 880 ml 400 ml Output Urine Total 1200 ml 700 ml Objective GENERAL: The patient is awake and responsive but confused, in no acute distress. HEAD AND NECK: Pupils are equal and reactive to light. Extraocular movements are intact in the right eye. Left eye blindness, Neck was supple. No JVD. LUNGS: fair air entry. No wheezing or rales. HEART: S1 and S2. Distant heart sounds. No Murmur or gallops. ABDOMEN: Soft, nontender, and nontender. Suprapubic catheter was noted. EXTREMITIES: No cyanosis or clubbing. Bilateral lower extremity trace LE's edema. NEUROLOGIC: Cranial nerves II through XII grossly intact. Motor is 5/5 in all extremities. Gait was not assessed due to the patient's status. Assessment/Plan Assessment/Plan ASSESSMENT: 1. DKA. 2. Hypertension. 3. Dyslipidemia. 4. Diabetes type 1 with prior history of diabetic ketoacidosis. 5. Diabetic retinopathy of the left eye blindness. 6. End-stage renal disease secondary to diabetic nephrosclerosis. 7. Coronary artery disease with prior history of myocardial infarction. 8. 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 9. 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 10. Secondary hyperparathyroidism with vitamin D deficiency. 11. Anemia of chronic kidney disease. 12. Metabolic acidosis. 13. Depression with prior suicide attempt. 14. Acute encephalopathy due to toxic metabolic encephalopathy due to DKA. PLAN: 1. Med/surg 2. Code status is DNR/DNI as per POLST in the chart. 3. Resume snf medications. 4. Follow up with Labs and culture. 5. Broad spectrum antibiotic with Meropenem. 6. DVT prophylaxis, heparin subcutaneous. 7. We will follow up with Dr. Delgado with critical care , Dr. Chambers from Nephrology and Dr. Rich Wick from Infectious Disease. 8. We will follow up with the cultures and laboratory in the morning. 9. Levemir and Insulin sliding scale per endocrinology 10. Discharge planning: SNF when bed available. Unable to return to [facility] Jose Glasgow MD Aug 08, 2018 17:57
--- NOTE | 2018-08-08 19:23 | NUR ---
HAND-OFF: Report given to NICOLE Morel.
[2018-08-08 20:00] VITALS: BP 114/54
--- NOTE | 2018-08-08 20:00 | NUR ---
NURSE NOTES: Patient in bed, asleep, arousable to name. No iv access, will attempt at a later time. No distress noted. No complaints of pain. Bed in low position, call light within reach, bed alarm no. Will continue to monitor.
[2018-08-08] MEDS ORDERED: Epoetin Alfa-EPBX (NON ESRD)10,000 unit/ml vial SUBQ ONE (21:00)
[2018-08-08] MEDS: Epoetin Alfa-EPBX (NON ESRD)10,000 unit/ml vial SUBQ SCH (22:01)
[2018-08-09 04:00] VITALS: BP 124/64
[2018-08-09] MEDS: Sodium Citrate 30ml ORAL SCH ×3 (05:44→17:26)
[2018-08-09] MEDS: NovoLOG Insulin Flexpen SUBQ SCH ×7 (06:12→20:36)
--- NOTE | 2018-08-09 06:45 | NUR ---
NURSE NOTES: PATIENT'S BLOOD SUGAR WAS 60. DEXTROSE 25 ML WAS GIVEN ORDERED. BLOOD SUGAR WAS RECHECKED AROUND 15 MINUTES LATER AND RESULT WAS 166. CALLED AND SPOKE WITH DR. SHERIFF AND MADE MD AWARE, NO NEW ORDERS WERE GIVEN. DR. SHERIFF JUST STATED TO NOT HOLD LEVEMIR DOSE AND THAT HE WILL CHANGE THE DOSE LATER. PATIENT IS AROUSABLE, ABLE TO ANSWER QUESTIONS AND FOLLOW COMMANDS, NO DISTRESS NOTED. WILL CONTINUE TO MONITOR.
--- NOTE | 2018-08-09 07:00 | NUR ---
HAND-OFF: Report given to INA LUNA RN.
--- NOTE | 2018-08-09 07:11 | General Progress Note ---
Assessment/Plan Problem List: (1) DKA (diabetic ketoacidoses) ICD Codes: E13.10 - DKA (diabetic ketoacidoses) SNOMED: 36017263 Qualifiers: Qualified Codes: E10.10 - Type 1 diabetes mellitus with ketoacidosis without coma (2) CKD (chronic kidney disease), stage III ICD Codes: N18.3 - CKD (chronic kidney disease), stage III SNOMED: 946880635 (3) encephalopathy due to metabolic do (4) Pulmonary HTN ICD Codes: I27.0 - Pulmonary HTN SNOMED: 87136258 Assessment/Plan continue Levemir 7 units bid - do not hold without notifying me continue Novolog 4 units ac tid NISS ac / hs - will reduce dosage Subjective ROS Limited/Unobtainable: Yes Allergies: Coded Allergies: CEFEPIME (Verified Allergy, Intermediate, Rash, 03/01/18) Tolerates Carbapenem Subjective events noted hypoglycemia this morning is due to Novolog 4 units coverage at bedtime last night Objective Last 24 Hour Vital Signs Date Time Temp Pulse Resp B/P (MAP) Pulse Ox O2 Delivery O2 Flow Rate FiO2 08/09/18 04:00 97.4 66 19 124/64 95 Room Air 08/08/18 22:13 Room Air 08/08/18 20:00 98.1 79 19 114/54 96 Room Air 08/08/18 16:00 99.0 85 19 125/62 96 Room Air 08/08/18 12:00 98.8 83 19 120/61 95 Room Air 08/08/18 09:33 Room Air 08/08/18 08:00 98.2 88 19 108/51 98 Room Air Intake and Output 08/08/18 08/09/18 19:00 07:00 Intake Total 600 ml 240 ml Output Total 800 ml 800 ml Balance -200 ml -560 ml Intake Oral 600 ml 240 ml Output Urine Total 800 ml 800 ml Laboratory Tests 08/08/18 07:50: White Blood Count 5.7, Red Blood Count 2.93L, Hemoglobin 9.0L, Hematocrit 27.5L , Mean Corpuscular Volume 94, Mean Corpuscular Hemoglobin 30.9, Mean Corpuscular Hemoglobin Concent 32.9, Red Cell Distribution Width 14.7, Platelet Count 240, Mean Platelet Volume 6.6, Neutrophils (%) (Auto) 61.5, Lymphocytes (% ) (Auto) 25.6, Monocytes (%) (Auto) 7.7, Eosinophils (%) (Auto) 4.5H, Basophils (%) (Auto) 0.7, Sodium Level 139, Potassium Level 4.5, Chloride Level 104, Carbon Dioxide Level 24, Anion Gap 11, Blood Urea Nitrogen 48H, Creatinine 5.5H , Estimat Glomerular Filtration Rate 10.5, Glucose Level 183H, Calcium Level 8.6 Height (Feet): 6 Height (Inches): 0.00 Weight (Pounds): 150 General Appearance: no apparent distress Neck: normal alignment Cardiovascular: normal rate Respiratory/Chest: normal breath sounds Abdomen: normal bowel sounds Objective Current Medications Medications (Trade) Dose Ordered Sig/Dunia Route PRN Reason Start Time Stop Time Status Last Admin Dose Admin Dextrose (Dextrose 50%) 25 ml Q30M PRN IV Hypoglycemia 08/03/18 08:30 08/31/18 07:29 08/09/18 06:12 Dextrose (Dextrose 50%) 50 ml Q30M PRN IV Hypoglycemia 08/03/18 08:30 08/31/18 07:29 08/08/18 06:08 Duloxetine HCl (Cymbalta) 40 mg DAILY ORAL 08/03/18 09:00 09/02/18 08:59 08/08/18 09:02 Epoetin Jose (Epoetin Jose-EPBX(NON ESRD)) 10,000 unit WED-WED-WED SUBQ 08/03/18 21:00 09/02/18 20:59 08/08/18 22:01 Heparin Sodium (Porcine) (Heparin 5000 units/ml) 5,000 units EVERY 12 HOURS SUBQ 08/03/18 09:00 08/28/18 08:59 08/08/18 22:03 Insulin Aspart (NovoLOG) BEFORE MEALS AND HS SUBQ 08/03/18 11:30 08/31/18 07:29 08/08/18 22:04 Insulin Aspart (NovoLOG) 4 units NOVOTIAC SUBQ 08/04/18 06:30 09/03/18 06:29 08/08/18 12:23 Insulin Detemir (Levemir) 7 units Q12HR SUBQ 08/07/18 10:00 09/06/18 09:59 08/08/18 22:03 Magnesium Oxide (Mag-Ox 400mg) 400 mg THREE TIMES A DAY ORAL 08/03/18 09:00 09/01/18 09:29 08/08/18 17:09 Pantoprazole (Protonix) 40 mg EVERY 12 HOURS ORAL 08/03/18 09:00 08/31/18 20:59 08/08/18 22:01 Quetiapine Fumarate (SEROquel) 25 mg Q6H PRN ORAL For Anxiety 08/03/18 08:30 08/31/18 08:29 Sevelamer Carbonate (Renvela) 800 mg THREE TIMES A DAY ORAL 08/03/18 09:00 08/28/18 12:59 08/08/18 17:09 Sodium Citrate (Bicitra) 30 ml EVERY 6 HOURS ORAL 08/03/18 12:00 08/28/18 11:59 08/09/18 05:44 Vitamin B Complex/ Vit C/Folic Acid (Nephrovite) 1 tab DAILY ORAL 08/03/18 09:00 08/29/18 08:59 08/08/18 09:02 Item Value Date Time Bedside Blood Glucose 60 mg/dl L 08/09/18 0613 Bedside Blood Glucose 166 mg/dl H 08/08/18 2204 Bedside Blood Glucose 78 mg/dl 08/08/18 1709 Bedside Blood Glucose 261 mg/dl H 08/08/18 1223 Bedside Blood Glucose 153 mg/dl H 08/08/18 0905 Bedside Blood Glucose 153 mg/dl H 08/08/18 0634 Modesto Jacques MD Aug 09, 2018 07:10
--- NOTE | 2018-08-09 07:35 | NUR ---
NURSE NOTES: Received patient in bed awake, alert x3, No acute respiratory distress noted. No c/o pain or any discomfort noted, Bed is in lowest position and locked, Call light and needs within reach
[2018-08-09 08:00] VITALS: BP 134/69
[2018-08-09] MEDS: Magnesium Oxide 400mg tab ORAL SCH ×4 (09:00→17:25)
[2018-08-09] MEDS: Nephrovite tab (Rena-Vite) ORAL SCH ×2 (09:00→09:10)
--- NOTE | 2018-08-09 09:10 | NUR ---
NURSE NOTES: RN accidently dropped Heparin vial to the floor, Wasted medication per protocol.
[2018-08-09] MEDS: Heparin 5000 units/ml inj SUBQ SCH ×2 (09:11→20:34)
[2018-08-09] MEDS: Levemir Flexpen SUBQ SCH ×2 (09:13→20:35)
--- NOTE | 2018-08-09 09:15 | Urology Progress Note ---
Assessment/Plan Assessment/Plan 1. Urinary retention. 2. Neurogenic bladder. 3. History of chronic suprapubic tube. 4. BPH history. 5. History of end-stage renal disease. 6. Hematuria. 7. Pyuria. 8. Proteinuria. 9. Renal cysts. monitor clinically keep sp tube, last exchanged 08/01 hand irrigated and do PRN s/p abx recheck urine cx at some point Subjective Allergies: Coded Allergies: CEFEPIME (Verified Allergy, Intermediate, Rash, 03/01/18) Tolerates Carbapenem Subjective all noted, new sp tube draining well, occasional leakage Objective Last 24 Hour Vital Signs Date Time Temp Pulse Resp B/P (MAP) Pulse Ox O2 Delivery O2 Flow Rate FiO2 08/09/18 04:00 97.4 66 19 124/64 95 Room Air 08/08/18 22:13 Room Air 08/08/18 20:00 98.1 79 19 114/54 96 Room Air 08/08/18 16:00 99.0 85 19 125/62 96 Room Air 08/08/18 12:00 98.8 83 19 120/61 95 Room Air 08/08/18 09:33 Room Air Intake and Output 08/08/18 08/09/18 19:00 07:00 Intake Total 600 ml 240 ml Output Total 800 ml 800 ml Balance -200 ml -560 ml Intake Oral 600 ml 240 ml Output Urine Total 800 ml 800 ml Microbiology Date/Time Source Procedure Growth Status 07/29/18 05:29 Blood Blood Culture - Final NO GROWTH AFTER 5 DAYS Complete 07/29/18 00:30 Nasal Nares MRSA Culture - Final Staphylococcus Aureus - Mrsa Complete 07/29/18 05:15 Urine,Clean Catch Urine Culture - Final Gram Positive Cocci Complete 07/29/18 00:30 Rectum VRE Culture - Final Enterococcus Faecalis - Vre Enterococcus Faecium - Vre Complete Current Medications Medications (Trade) Dose Ordered Sig/Dunia Route PRN Reason Start Time Stop Time Status Last Admin Dose Admin Dextrose (Dextrose 50%) 25 ml Q30M PRN IV Hypoglycemia 08/03/18 08:30 08/31/18 07:29 08/09/18 06:12 Dextrose (Dextrose 50%) 50 ml Q30M PRN IV Hypoglycemia 08/03/18 08:30 08/31/18 07:29 08/08/18 06:08 Duloxetine HCl (Cymbalta) 40 mg DAILY ORAL 08/03/18 09:00 09/02/18 08:59 08/09/18 09:10 Epoetin Jose (Epoetin Jose-EPBX(NON ESRD)) 10,000 unit WED-WED-WED SUBQ 08/03/18 21:00 09/02/18 20:59 08/08/18 22:01 Heparin Sodium (Porcine) (Heparin 5000 units/ml) 5,000 units EVERY 12 HOURS SUBQ 08/03/18 09:00 08/28/18 08:59 08/09/18 09:11 Insulin Aspart (NovoLOG) BEFORE MEALS AND HS SUBQ 08/09/18 11:30 08/31/18 07:29 Insulin Aspart (NovoLOG) 4 units NOVOTIAC SUBQ 08/04/18 06:30 09/03/18 06:29 08/08/18 12:23 Insulin Detemir (Levemir) 7 units Q12HR SUBQ 08/07/18 10:00 09/06/18 09:59 08/09/18 09:13 Magnesium Oxide (Mag-Ox 400mg) 400 mg THREE TIMES A DAY ORAL 08/03/18 09:00 09/01/18 09:29 08/09/18 09:10 Pantoprazole (Protonix) 40 mg EVERY 12 HOURS ORAL 08/03/18 09:00 08/31/18 20:59 08/09/18 09:10 Quetiapine Fumarate (SEROquel) 25 mg Q6H PRN ORAL For Anxiety 08/03/18 08:30 08/31/18 08:29 Sevelamer Carbonate (Renvela) 800 mg THREE TIMES A DAY ORAL 08/03/18 09:00 08/28/18 12:59 08/09/18 09:10 Sodium Citrate (Bicitra) 30 ml EVERY 6 HOURS ORAL 08/03/18 12:00 08/28/18 11:59 08/09/18 05:44 Vitamin B Complex/ Vit C/Folic Acid (Nephrovite) 1 tab DAILY ORAL 08/03/18 09:00 08/29/18 08:59 08/09/18 09:10 Height (Feet): 6 Height (Inches): 0.00 Weight (Pounds): 150 Objective exam stable Ye Rios MD Aug 09, 2018 09:15
--- NOTE | 2018-08-09 09:35 | NUR ---
NURSE NOTES: Patient refused AM oral medication, Encouraged patient and explained benefit and risk, but, Patient still refused.
--- NOTE | 2018-08-09 09:35 | NUR ---
NURSE NOTES: Patient refused AM oral medicatiobn Addendum: 08/09/18 at 0914 by Jennifer Gil RN wrong entry
--- NOTE | 2018-08-09 09:43 | Infectious Diseases Prog Note ---
Assessment/Plan Assessment/Plan Severe sepsis -likely 2ry to UTI- SP, s/p rx -u.a wbc tntc, nit neg, luek +3; ucx <10k GPC -Bcx Neg -CXR: Suspected atelectasis or scarring right Afebrile Leukocytosis, SP DKA RIVKA, improving hx of recent sepsis 2ry to UTI and bacteremia 07/08/18 UCx - P.a. MDR and Providencia 07/08/18 BCx ESBL Proteus and K. pneumo Dm2 HLD MDD with suicidal attempts in the past w/ resultant chronic encephalopathy CAD/IA BPH anemia asthma colonic polyps ESRD s/p renal and pancreas tx ~10 yrs ago now CKD 4 ConS bacteremia/line infection urinary retention s/p suprapubic catheter 09/2017 recurrent hematuria multiple hospital admissions recurrent UTI DNR Plan: - Continue to monitor off abx -08/02 SP Meropenem d# 5 07/29 SP one dose Amikacin -07/22 SP Meropenem, #14 - f/u cx -Monitor CBC/CMP, temperatures Subjective Allergies: Coded Allergies: CEFEPIME (Verified Allergy, Intermediate, Rash, 03/01/18) Tolerates Carbapenem Subjective CECIL Afebrile No leukocytosis Objective Vital Signs Last 24 Hour Vital Signs Date Time Temp Pulse Resp B/P (MAP) Pulse Ox O2 Delivery O2 Flow Rate FiO2 08/09/18 04:00 97.4 66 19 124/64 95 Room Air 08/08/18 22:13 Room Air 08/08/18 20:00 98.1 79 19 114/54 96 Room Air 08/08/18 16:00 99.0 85 19 125/62 96 Room Air 08/08/18 12:00 98.8 83 19 120/61 95 Room Air Height (Feet): 6 Height (Inches): 0.00 Weight (Pounds): 150 Objective Condition: NAD HEENT: NCAT, MMM, EOMI Lungs: chest wall tender Heart: HR/BP stable, Abdomen: soft, non-tender, ND Extremities: no C/C/E Current Medications Medications (Trade) Dose Ordered Sig/Dunia Route PRN Reason Start Time Stop Time Status Last Admin Dose Admin Dextrose (Dextrose 50%) 25 ml Q30M PRN IV Hypoglycemia 08/03/18 08:30 08/31/18 07:29 08/09/18 06:12 Dextrose (Dextrose 50%) 50 ml Q30M PRN IV Hypoglycemia 08/03/18 08:30 08/31/18 07:29 08/08/18 06:08 Duloxetine HCl (Cymbalta) 40 mg DAILY ORAL 08/03/18 09:00 09/02/18 08:59 08/08/18 09:02 Epoetin Jose (Epoetin Jose-EPBX(NON ESRD)) 10,000 unit WED-WED-WED SUBQ 08/03/18 21:00 09/02/18 20:59 08/08/18 22:01 Heparin Sodium (Porcine) (Heparin 5000 units/ml) 5,000 units EVERY 12 HOURS SUBQ 08/03/18 09:00 08/28/18 08:59 08/09/18 09:11 Insulin Aspart (NovoLOG) BEFORE MEALS AND HS SUBQ 08/09/18 11:30 08/31/18 07:29 Insulin Aspart (NovoLOG) 4 units NOVOTIAC SUBQ 08/04/18 06:30 09/03/18 06:29 08/08/18 12:23 Insulin Detemir (Levemir) 7 units Q12HR SUBQ 08/07/18 10:00 09/06/18 09:59 08/09/18 09:13 Magnesium Oxide (Mag-Ox 400mg) 400 mg THREE TIMES A DAY ORAL 08/03/18 09:00 09/01/18 09:29 08/08/18 17:09 Pantoprazole (Protonix) 40 mg EVERY 12 HOURS ORAL 08/03/18 09:00 08/31/18 20:59 08/08/18 22:01 Quetiapine Fumarate (SEROquel) 25 mg Q6H PRN ORAL For Anxiety 08/03/18 08:30 08/31/18 08:29 Sevelamer Carbonate (Renvela) 800 mg THREE TIMES A DAY ORAL 08/03/18 09:00 08/28/18 12:59 08/08/18 17:09 Sodium Citrate (Bicitra) 30 ml EVERY 6 HOURS ORAL 08/03/18 12:00 08/28/18 11:59 08/09/18 05:44 Vitamin B Complex/ Vit C/Folic Acid (Nephrovite) 1 tab DAILY ORAL 08/03/18 09:00 08/29/18 08:59 08/08/18 09:02 William Caputo MD Aug 09, 2018 09:43
[2018-08-09 11:12] LABS: BASOPHILS % (AUTO) 0.5 % (0.0-2.0); EOSINOPHILS % (AUTO) 1.1 % (0.0-3.0); HEMATOCRIT 28.5 % (42.0-52.0); HEMOGLOBIN 9.3 G/DL (14.2-18.0); LYMPHOCYTES % (AUTO) 14.6 % (20.0-45.0); MEAN CORPUSCULAR VOLUME 94 FL (80-99); MONOCYTES % (AUTO) 6.2 % (1.0-10.0); NEUTROPHILS % (AUTO) 77.7 % (45.0-75.0); PLATELET COUNT 253 K/UL (150-450); RED BLOOD COUNT 3.04 M/UL (4.70-6.10); WHITE BLOOD COUNT 8.5 K/UL (4.8-10.8)
[2018-08-09 11:20] LABS: ANION GAP 7 mmol/L (5-15); BLOOD UREA NITROGEN 53 mg/dL (7-18); CALCIUM 8.6 MG/DL (8.5-10.1); CARBON DIOXIDE 28 MMOL/L (21-32); CHLORIDE 102 MMOL/L (98-107); CREATININE 5.7 MG/DL (0.55-1.30); POTASSIUM 5.2 MMOL/L (3.5-5.1); SODIUM 137 MMOL/L (136-145)
[2018-08-09 12:00] VITALS: BP 114/55
--- NOTE | 2018-08-09 12:01 | General Progress Note ---
Assessment/Plan Problem List: (1) encephalopathy due to metabolic do (2) Major depressive disorder ICD Codes: F32.9 - Major depressive disorder, single episode, unspecified SNOMED: 735440612 Status: deteriorating Assessment/Plan cont Cymbalta 40mg qam seroquel 25mg q6hr prn agitation seroquel 25mg po bid provided ro/st Subjective Neurologic/Psychiatric: Reports: anxiety, depressed, emotional problems Allergies: Coded Allergies: CEFEPIME (Verified Allergy, Intermediate, Rash, 03/01/18) Tolerates Carbapenem Subjective the pt is has been agitated and removed his IV access twice. he refused all his meds this am. he was irritable and uncooperative today, Objective Last 24 Hour Vital Signs Date Time Temp Pulse Resp B/P (MAP) Pulse Ox O2 Delivery O2 Flow Rate FiO2 08/09/18 09:00 Room Air 08/09/18 08:00 96.5 68 20 134/69 100 Room Air 08/09/18 04:00 97.4 66 19 124/64 95 Room Air 08/08/18 22:13 Room Air 08/08/18 20:00 98.1 79 19 114/54 96 Room Air 08/08/18 16:00 99.0 85 19 125/62 96 Room Air Intake and Output 08/08/18 08/09/18 19:00 07:00 Intake Total 600 ml 240 ml Output Total 800 ml 800 ml Balance -200 ml -560 ml Intake Oral 600 ml 240 ml Output Urine Total 800 ml 800 ml Laboratory Tests 08/09/18 11:05: White Blood Count 8.5, Red Blood Count 3.04L, Hemoglobin 9.3L, Hematocrit 28.5L , Mean Corpuscular Volume 94, Mean Corpuscular Hemoglobin 30.6, Mean Corpuscular Hemoglobin Concent 32.6, Red Cell Distribution Width 15.0H, Platelet Count 253, Mean Platelet Volume 6.5, Neutrophils (%) (Auto) 77.7H, Lymphocytes (%) (Auto) 14.6L, Monocytes (%) (Auto) 6.2, Eosinophils (%) (Auto) 1.1, Basophils (%) (Auto) 0.5, Sodium Level 137, Potassium Level 5.2H, Chloride Level 102, Carbon Dioxide Level 28, Anion Gap 7, Blood Urea Nitrogen 53H, Creatinine 5.7H, Estimat Glomerular Filtration Rate 10.1, Glucose Level 357#H, Calcium Level 8.6 Height (Feet): 6 Height (Inches): 0.00 Weight (Pounds): 150 General Appearance: alert, confused, agitated Fatmata Lu MD Aug 09, 2018 12:01
--- NOTE | 2018-08-09 14:21 | Pulmonology Progress Note ---
Assessment/Plan Problems: (1) Encephalopathy acute (2) DKA (diabetic ketoacidoses) (3) Anemia in chronic kidney disease (4) CKD (chronic kidney disease), stage III (5) Major depressive disorder (6) Bladder outlet obstruction (7) Suprapubic catheter Assessment/Plan all reviewed creatinine lower doing better no new complains Bs better controlled Acidosis improving Add epogen for anemia pt refusing HD check electrolytes continue DNR dvt prophylaxis All medications and treatment were reviewed.med recon done, dc to fdc today Subjective ROS Limited/Unobtainable: No Allergies: Coded Allergies: CEFEPIME (Verified Allergy, Intermediate, Rash, 03/01/18) Tolerates Carbapenem Objective Last 24 Hour Vital Signs Date Time Temp Pulse Resp B/P (MAP) Pulse Ox O2 Delivery O2 Flow Rate FiO2 08/09/18 09:00 Room Air 08/09/18 08:00 96.5 68 20 134/69 100 Room Air 08/09/18 04:00 97.4 66 19 124/64 95 Room Air 08/08/18 22:13 Room Air 08/08/18 20:00 98.1 79 19 114/54 96 Room Air 08/08/18 16:00 99.0 85 19 125/62 96 Room Air Intake and Output 08/08/18 08/09/18 19:00 07:00 Intake Total 600 ml 240 ml Output Total 800 ml 800 ml Balance -200 ml -560 ml Intake Oral 600 ml 240 ml Output Urine Total 800 ml 800 ml Objective General Appearance: WD/WN HEENT: normocephalic, atraumatic, anicteric Respiratory/Chest: chest wall non-tender, lungs clear Breasts: no masses Cardiovascular: normal peripheral pulses, normal rate Abdomen: normal bowel sounds, soft, non tender Extremities: no cyanosis Skin: no rash Neurologic/Psychiatric: plow and boring machine tender II-XII grossly normal Lymphatic: no neck adenopathy Laboratory Tests 08/09/18 11:05: White Blood Count 8.5, Red Blood Count 3.04L, Hemoglobin 9.3L, Hematocrit 28.5L , Mean Corpuscular Volume 94, Mean Corpuscular Hemoglobin 30.6, Mean Corpuscular Hemoglobin Concent 32.6, Red Cell Distribution Width 15.0H, Platelet Count 253, Mean Platelet Volume 6.5, Neutrophils (%) (Auto) 77.7H, Lymphocytes (%) (Auto) 14.6L, Monocytes (%) (Auto) 6.2, Eosinophils (%) (Auto) 1.1, Basophils (%) (Auto) 0.5, Sodium Level 137, Potassium Level 5.2H, Chloride Level 102, Carbon Dioxide Level 28, Anion Gap 7, Blood Urea Nitrogen 53H, Creatinine 5.7H, Estimat Glomerular Filtration Rate 10.1, Glucose Level 357#H, Calcium Level 8.6 Current Medications Medications (Trade) Dose Ordered Sig/Dunia Route PRN Reason Start Time Stop Time Status Last Admin Dose Admin Dextrose (Dextrose 50%) 25 ml Q30M PRN IV Hypoglycemia 08/03/18 08:30 08/31/18 07:29 08/09/18 06:12 Dextrose (Dextrose 50%) 50 ml Q30M PRN IV Hypoglycemia 08/03/18 08:30 08/31/18 07:29 08/08/18 06:08 Duloxetine HCl (Cymbalta) 40 mg DAILY ORAL 08/03/18 09:00 09/02/18 08:59 08/08/18 09:02 Epoetin Jose (Epoetin Jose-EPBX(NON ESRD)) 10,000 unit WED-WED-WED SUBQ 08/03/18 21:00 09/02/18 20:59 08/08/18 22:01 Heparin Sodium (Porcine) (Heparin 5000 units/ml) 5,000 units EVERY 12 HOURS SUBQ 08/03/18 09:00 08/28/18 08:59 08/09/18 09:11 Insulin Aspart (NovoLOG) BEFORE MEALS AND HS SUBQ 08/09/18 11:30 08/31/18 07:29 08/09/18 11:24 Insulin Aspart (NovoLOG) 4 units NOVOTIAC SUBQ 08/04/18 06:30 09/03/18 06:29 08/09/18 11:27 Insulin Detemir (Levemir) 7 units Q12HR SUBQ 08/07/18 10:00 09/06/18 09:59 08/09/18 09:13 Magnesium Oxide (Mag-Ox 400mg) 400 mg THREE TIMES A DAY ORAL 08/03/18 09:00 09/01/18 09:29 08/09/18 12:33 Pantoprazole (Protonix) 40 mg EVERY 12 HOURS ORAL 08/03/18 09:00 08/31/18 20:59 08/08/18 22:01 Quetiapine Fumarate (SEROquel) 25 mg Q12HR ORAL 08/09/18 12:15 09/08/18 12:14 08/09/18 12:33 Quetiapine Fumarate (SEROquel) 25 mg Q6H PRN ORAL For Anxiety 08/03/18 08:30 08/31/18 08:29 Sevelamer Carbonate (Renvela) 800 mg THREE TIMES A DAY ORAL 08/03/18 09:00 08/28/18 12:59 08/09/18 12:33 Sodium Citrate (Bicitra) 30 ml EVERY 6 HOURS ORAL 08/03/18 12:00 08/28/18 11:59 08/09/18 12:34 Vitamin B Complex/ Vit C/Folic Acid (Nephrovite) 1 tab DAILY ORAL 08/03/18 09:00 08/29/18 08:59 08/08/18 09:02 Esdras Delgado MD Aug 09, 2018 14:21
[2018-08-09 16:00] VITALS: BP 118/54
--- NOTE | 2018-08-09 17:01 | NUR ---
NURSE NOTES: Dr. Calhoun made aware of high potassium level with no new order.
--- NOTE | 2018-08-09 17:08 | Nephrology Progress Note ---
Assessment/Plan Problem List: (1) Acute on chronic renal failure (2) Bladder outlet obstruction (3) Anemia in chronic kidney disease (4) BPH (benign prostatic hypertrophy) (5) DKA (diabetic ketoacidoses) (6) Encephalopathy acute Assessment High Glucose now improved ESRD , in need of dialysis , refuses- presents with high K Encephalopathy , Metabolic Acidosis , Uremic and Diabetic Sever Anemia: Mixed etiology HTn, but presents with low BP Supra Pubic Cath, h/o UTI, BPH Psych disease CAD, elevated Troponin I s/p DKAs Plan DC mag oxide and bicitra watch K Transfuse as needed Sugar control will do poorly in view of no dialysis plans DNR per orders Subjective ROS Limited/Unobtainable: No Constitutional: Reports: malaise Objective Objective Last 24 Hour Vital Signs Date Time Temp Pulse Resp B/P (MAP) Pulse Ox O2 Delivery O2 Flow Rate FiO2 08/09/18 16:00 98.9 80 19 118/54 97 Room Air 08/09/18 12:00 97.9 81 19 114/55 98 Room Air 08/09/18 09:00 Room Air 08/09/18 08:00 96.5 68 20 134/69 100 Room Air 08/09/18 04:00 97.4 66 19 124/64 95 Room Air 08/08/18 22:13 Room Air 08/08/18 20:00 98.1 79 19 114/54 96 Room Air Intake and Output 08/08/18 08/09/18 19:00 07:00 Intake Total 600 ml 240 ml Output Total 800 ml 800 ml Balance -200 ml -560 ml Intake Oral 600 ml 240 ml Output Urine Total 800 ml 800 ml Laboratory Tests 08/09/18 11:05: White Blood Count 8.5, Red Blood Count 3.04L, Hemoglobin 9.3L, Hematocrit 28.5L , Mean Corpuscular Volume 94, Mean Corpuscular Hemoglobin 30.6, Mean Corpuscular Hemoglobin Concent 32.6, Red Cell Distribution Width 15.0H, Platelet Count 253, Mean Platelet Volume 6.5, Neutrophils (%) (Auto) 77.7H, Lymphocytes (%) (Auto) 14.6L, Monocytes (%) (Auto) 6.2, Eosinophils (%) (Auto) 1.1, Basophils (%) (Auto) 0.5, Sodium Level 137, Potassium Level 5.2H, Chloride Level 102, Carbon Dioxide Level 28, Anion Gap 7, Blood Urea Nitrogen 53H, Creatinine 5.7H, Estimat Glomerular Filtration Rate 10.1, Glucose Level 357#H, Calcium Level 8.6 Height (Feet): 6 Height (Inches): 0.00 Weight (Pounds): 150 General Appearance: no apparent distress Cardiovascular: normal rate Respiratory/Chest: decreased breath sounds Abdomen: distended Objective no change Luis Chambers MD Aug 09, 2018 17:08
--- NOTE | 2018-08-09 17:12 | Internal Med Progress Note ---
Subjective Date of Service: Aug 09, 2018 Physician Name Jose Glasgow Attending Physician Christopher Rosado MD Current Medications Medications (Trade) Dose Ordered Sig/Dunia Route PRN Reason Start Time Stop Time Status Last Admin Dose Admin Dextrose (Dextrose 50%) 25 ml Q30M PRN IV Hypoglycemia 08/03/18 08:30 08/31/18 07:29 08/09/18 06:12 Dextrose (Dextrose 50%) 50 ml Q30M PRN IV Hypoglycemia 08/03/18 08:30 08/31/18 07:29 08/08/18 06:08 Duloxetine HCl (Cymbalta) 40 mg DAILY ORAL 08/03/18 09:00 09/02/18 08:59 08/08/18 09:02 Epoetin Jose (Epoetin Jose-EPBX(NON ESRD)) 10,000 unit WED-WED-WED SUBQ 08/03/18 21:00 09/02/18 20:59 08/08/18 22:01 Heparin Sodium (Porcine) (Heparin 5000 units/ml) 5,000 units EVERY 12 HOURS SUBQ 08/03/18 09:00 08/28/18 08:59 08/09/18 09:11 Insulin Aspart (NovoLOG) BEFORE MEALS AND HS SUBQ 08/09/18 11:30 08/31/18 07:29 08/09/18 16:46 Insulin Aspart (NovoLOG) 4 units NOVOTIAC SUBQ 08/04/18 06:30 09/03/18 06:29 08/09/18 16:47 Insulin Detemir (Levemir) 7 units Q12HR SUBQ 08/07/18 10:00 09/06/18 09:59 08/09/18 09:13 Magnesium Oxide (Mag-Ox 400mg) 400 mg THREE TIMES A DAY ORAL 08/03/18 09:00 09/01/18 09:29 08/09/18 12:33 Pantoprazole (Protonix) 40 mg EVERY 12 HOURS ORAL 08/03/18 09:00 08/31/18 20:59 08/08/18 22:01 Quetiapine Fumarate (SEROquel) 25 mg Q12HR ORAL 08/09/18 12:15 09/08/18 12:14 08/09/18 12:33 Quetiapine Fumarate (SEROquel) 25 mg Q6H PRN ORAL For Anxiety 08/03/18 08:30 08/31/18 08:29 Sevelamer Carbonate (Renvela) 800 mg THREE TIMES A DAY ORAL 08/03/18 09:00 08/28/18 12:59 08/09/18 12:33 Sodium Citrate (Bicitra) 30 ml EVERY 6 HOURS ORAL 08/03/18 12:00 08/28/18 11:59 08/09/18 12:34 Vitamin B Complex/ Vit C/Folic Acid (Nephrovite) 1 tab DAILY ORAL 08/03/18 09:00 08/29/18 08:59 08/08/18 09:02 Allergies: Coded Allergies: CEFEPIME (Verified Allergy, Intermediate, Rash, 03/01/18) Tolerates Carbapenem ROS Limited/Unobtainable: No Constitutional: Reports: no symptoms HEENT: Reports: no symptoms Cardiovascular: Reports: no symptoms Respiratory: Reports: no symptoms Gastrointestinal/Abdominal: Reports: no symptoms Genitourinary: Reports: no symptoms Neurologic/Psychiatric: Reports: no symptoms Subjective 63 YO M with history of diabetes I admitted with hyperglycemia and DKA. Cover for Int Med-Dr Rosado. Await acceptance to [facility] Objective Last Vital Signs Date Time Temp Pulse Resp B/P (MAP) Pulse Ox O2 Delivery O2 Flow Rate FiO2 08/09/18 16:00 98.9 80 19 118/54 97 Room Air 08/05/18 03:29 21 Laboratory Tests Test 08/09/18 11:05 White Blood Count 8.5 K/UL (4.8-10.8) Red Blood Count 3.04 M/UL (4.70-6.10) L Hemoglobin 9.3 G/DL (14.2-18.0) L Hematocrit 28.5 % (42.0-52.0) L Mean Corpuscular Volume 94 FL (80-99) Mean Corpuscular Hemoglobin 30.6 PG (27.0-31.0) Mean Corpuscular Hemoglobin Concent 32.6 G/DL (32.0-36.0) Red Cell Distribution Width 15.0 % (11.6-14.8) H Platelet Count 253 K/UL (150-450) Mean Platelet Volume 6.5 FL (6.5-10.1) Neutrophils (%) (Auto) 77.7 % (45.0-75.0) H Lymphocytes (%) (Auto) 14.6 % (20.0-45.0) L Monocytes (%) (Auto) 6.2 % (1.0-10.0) Eosinophils (%) (Auto) 1.1 % (0.0-3.0) Basophils (%) (Auto) 0.5 % (0.0-2.0) Sodium Level 137 MMOL/L (136-145) Potassium Level 5.2 MMOL/L (3.5-5.1) H Chloride Level 102 MMOL/L (98-107) Carbon Dioxide Level 28 MMOL/L (21-32) Anion Gap 7 mmol/L (5-15) Blood Urea Nitrogen 53 mg/dL (7-18) H Creatinine 5.7 MG/DL (0.55-1.30) H Estimat Glomerular Filtration Rate 10.1 mL/min (>60) Glucose Level 357 MG/DL (74-106) #H Calcium Level 8.6 MG/DL (8.5-10.1) Intake and Output 08/08/18 08/09/18 19:00 07:00 Intake Total 600 ml 240 ml Output Total 800 ml 800 ml Balance -200 ml -560 ml Intake Oral 600 ml 240 ml Output Urine Total 800 ml 800 ml Objective GENERAL: The patient is awake and responsive but confused, in no acute distress. HEAD AND NECK: Pupils are equal and reactive to light. Extraocular movements are intact in the right eye. Left eye blindness, Neck was supple. No JVD. LUNGS: fair air entry. No wheezing or rales. HEART: S1 and S2. Distant heart sounds. No Murmur or gallops. ABDOMEN: Soft, nontender, and nontender. Suprapubic catheter was noted. EXTREMITIES: No cyanosis or clubbing. Bilateral lower extremity trace LE's edema. NEUROLOGIC: Cranial nerves II through XII grossly intact. Motor is 5/5 in all extremities. Gait was not assessed due to the patient's status. Assessment/Plan Status: progressing Assessment/Plan ASSESSMENT: 1. DKA. 2. Hypertension. 3. Dyslipidemia. 4. Diabetes type 1 with prior history of diabetic ketoacidosis. 5. Diabetic retinopathy of the left eye blindness. 6. End-stage renal disease secondary to diabetic nephrosclerosis. 7. Coronary artery disease with prior history of myocardial infarction. 8. 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 9. 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 10. Secondary hyperparathyroidism with vitamin D deficiency. 11. Anemia of chronic kidney disease. 12. Metabolic acidosis. 13. Depression with prior suicide attempt. 14. Acute encephalopathy due to toxic metabolic encephalopathy due to DKA. PLAN: 1. Med/surg 2. Code status is DNR/DNI as per POLST in the chart. 3. Resume senior living medications. 4. Follow up with Labs and culture. 5. Broad spectrum antibiotic with Meropenem. 6. DVT prophylaxis, heparin subcutaneous. 7. We will follow up with Dr. Delgdao with critical care , Dr. Chambers from Nephrology and Dr. Rich Wick from Infectious Disease. 8. We will follow up with the cultures and laboratory in the morning. 9. Levemir and Insulin sliding scale per endocrinology 10. Discharge planning: SNF when bed available. Unable to return to [facility] Jose Glasgow MD Aug 09, 2018 17:12
--- NOTE | 2018-08-09 19:24 | NUR ---
HAND-OFF: Report given to NICOLE Ochoa.
--- NOTE | 2018-08-09 19:47 | NUR ---
NURSE NOTES: Received patient comfortably sleeping,no complaints.
[2018-08-09 20:17] VITALS: BP 109/50
[2018-08-10] VITALS (10 sets, daily range): BP systolic 100–159; BP diastolic 51–80
[2018-08-10] MEDS: NovoLOG Insulin Flexpen SUBQ SCH ×6 (05:48→16:57)
[2018-08-10 06:39] LABS: BASOPHILS % (AUTO) 0.7 % (0.0-2.0); EOSINOPHILS % (AUTO) 2.5 % (0.0-3.0); HEMATOCRIT 28.8 % (42.0-52.0); HEMOGLOBIN 9.1 G/DL (14.2-18.0); LYMPHOCYTES % (AUTO) 22.6 % (20.0-45.0); MEAN CORPUSCULAR VOLUME 97 FL (80-99); NEUTROPHILS % (AUTO) 68.1 % (45.0-75.0); PLATELET COUNT 264 K/UL (150-450); RED BLOOD COUNT 2.96 M/UL (4.70-6.10); RED CELL DISTRIBUTION WIDTH 15.9 % (11.6-14.8); WHITE BLOOD COUNT 9.4 K/UL (4.8-10.8)
--- NOTE | 2018-08-10 06:42 | NUR ---
NURSE NOTES: Patient blood sugar is critical high(533),gave novolog coverage,requested random glucose,informed Dr Jacques,awaiting orders.
[2018-08-10 07:00] LABS: ALANINE AMINOTRANSFERASE 14 U/L (12-78); ALBUMIN 2.1 G/DL (3.4-5.0); ALBUMIN/GLOBULIN RATIO 0.5 (1.0-2.7); ALKALINE PHOSPHATASE 93 U/L (46-116); ANION GAP 9 mmol/L (5-15); ASPARTATE AMINO TRANSFERASE 16 U/L (15-37); BILIRUBIN,TOTAL 0.5 MG/DL (0.2-1.0); BLOOD UREA NITROGEN 63 mg/dL (7-18); CALCIUM 8.8 MG/DL (8.5-10.1); CARBON DIOXIDE 24 MMOL/L (21-32); CHLORIDE 101 MMOL/L (98-107); CREATININE 6.4 MG/DL (0.55-1.30); POTASSIUM 5.6 MMOL/L (3.5-5.1); SODIUM 134 MMOL/L (136-145)
--- NOTE | 2018-08-10 07:00 | NUR ---
HAND-OFF: Report given to Tori Grant RN.
--- NOTE | 2018-08-10 07:09 | NUR ---
NURSE NOTES: Received report from NICOLE Ochoa. Pt is in the bed, On the RA. No s/s of respiratory distress or discomfort noted. Per darlene Ochoa called with the Blood sugar result of 565, Dr Jacques notified. Will f/u Bed is in the lowest position. Call light is within the reach. Will continue to monitor
--- NOTE | 2018-08-10 07:44 | General Progress Note ---
Assessment/Plan Problem List: (1) DKA (diabetic ketoacidoses) ICD Codes: E13.10 - DKA (diabetic ketoacidoses) SNOMED: 04055311 Qualifiers: Qualified Codes: E10.10 - Type 1 diabetes mellitus with ketoacidosis without coma (2) CKD (chronic kidney disease), stage III ICD Codes: N18.3 - CKD (chronic kidney disease), stage III SNOMED: 489655710 (3) encephalopathy due to metabolic do (4) Pulmonary HTN ICD Codes: I27.0 - Pulmonary HTN SNOMED: 34587684 Assessment/Plan increase Levemir to 10 units bid - do not hold without notifying me increase Novolog to 5 units ac tid NISS ac / hs Subjective ROS Limited/Unobtainable: Yes Allergies: Coded Allergies: CEFEPIME (Verified Allergy, Intermediate, Rash, 03/01/18) Tolerates Carbapenem Subjective events noted severe hyperglycemia this morning he received scheduled Levemir last night Objective Last 24 Hour Vital Signs Date Time Temp Pulse Resp B/P (MAP) Pulse Ox O2 Delivery O2 Flow Rate FiO2 08/10/18 04:00 98.1 85 18 123/58 95 Room Air 21 08/10/18 00:00 98.3 80 18 106/52 98 Room Air 08/09/18 20:17 98.5 85 18 109/50 98 Room Air 21 08/09/18 20:08 Room Air 08/09/18 16:00 98.9 80 19 118/54 97 Room Air 08/09/18 12:00 97.9 81 19 114/55 98 Room Air 08/09/18 09:00 Room Air 08/09/18 08:00 96.5 68 20 134/69 100 Room Air Intake and Output 08/09/18 08/10/18 19:00 07:00 Intake Total 600 ml Output Total 600 ml 500 ml Balance 0 ml -500 ml Intake Oral 600 ml Output Urine Total 600 ml 500 ml Laboratory Tests 08/09/18 11:05: White Blood Count 8.5, Red Blood Count 3.04L, Hemoglobin 9.3L, Hematocrit 28.5L , Mean Corpuscular Volume 94, Mean Corpuscular Hemoglobin 30.6, Mean Corpuscular Hemoglobin Concent 32.6, Red Cell Distribution Width 15.0H, Platelet Count 253, Mean Platelet Volume 6.5, Neutrophils (%) (Auto) 77.7H, Lymphocytes (%) (Auto) 14.6L, Monocytes (%) (Auto) 6.2, Eosinophils (%) (Auto) 1.1, Basophils (%) (Auto) 0.5, Sodium Level 137, Potassium Level 5.2H, Chloride Level 102, Carbon Dioxide Level 28, Anion Gap 7, Blood Urea Nitrogen 53H, Creatinine 5.7H, Estimat Glomerular Filtration Rate 10.1, Glucose Level 357#H, Calcium Level 8.6 08/10/18 06:28: White Blood Count 9.4, Red Blood Count 2.96L, Hemoglobin 9.1L, Hematocrit 28.8L , Mean Corpuscular Volume 97, Mean Corpuscular Hemoglobin 30.9, Mean Corpuscular Hemoglobin Concent 31.7L, Red Cell Distribution Width 15.9H, Platelet Count 264, Mean Platelet Volume 5.7L, Neutrophils (%) (Auto) 68.1, Lymphocytes (%) (Auto) 22.6, Monocytes (%) (Auto) 6.0, Eosinophils (%) (Auto) 2.5, Basophils (%) (Auto) 0.7, Sodium Level 134L, Potassium Level 5.6H, Chloride Level 101, Carbon Dioxide Level 24, Anion Gap 9, Blood Urea Nitrogen 63H, Creatinine 6.4H, Estimat Glomerular Filtration Rate 8.8, Glucose Level 565# *H, Calcium Level 8.8, Uric Acid 8.9H, Phosphorus Level 4.0, Magnesium Level 2.7H, Total Bilirubin 0.5, Aspartate Amino Transf (AST/SGOT) 16, Alanine Aminotransferase (ALT/SGPT) 14, Alkaline Phosphatase 93, Total Protein 6.1L, Albumin 2.1L, Globulin 4.0, Albumin/Globulin Ratio 0.5L Height (Feet): 6 Height (Inches): 0.00 Weight (Pounds): 152 General Appearance: no apparent distress Neck: normal alignment Cardiovascular: normal rate Respiratory/Chest: normal breath sounds Abdomen: normal bowel sounds Objective Current Medications Medications (Trade) Dose Ordered Sig/Dunia Route PRN Reason Start Time Stop Time Status Last Admin Dose Admin Dextrose (Dextrose 50%) 25 ml Q30M PRN IV Hypoglycemia 08/03/18 08:30 08/31/18 07:29 08/09/18 06:12 Dextrose (Dextrose 50%) 50 ml Q30M PRN IV Hypoglycemia 08/03/18 08:30 08/31/18 07:29 08/08/18 06:08 Duloxetine HCl (Cymbalta) 40 mg DAILY ORAL 08/03/18 09:00 09/02/18 08:59 08/08/18 09:02 Epoetin Jose (Epoetin Jose-EPBX(NON ESRD)) 10,000 unit WED-WED-WED SUBQ 08/03/18 21:00 09/02/18 20:59 08/08/18 22:01 Heparin Sodium (Porcine) (Heparin 5000 units/ml) 5,000 units EVERY 12 HOURS SUBQ 08/03/18 09:00 08/28/18 08:59 08/09/18 20:34 Insulin Aspart (NovoLOG) BEFORE MEALS AND HS SUBQ 08/09/18 11:30 08/31/18 07:29 08/10/18 05:48 Insulin Aspart (NovoLOG) 4 units NOVOTIAC SUBQ 08/04/18 06:30 09/03/18 06:29 08/10/18 05:49 Insulin Detemir (Levemir) 7 units Q12HR SUBQ 08/07/18 10:00 09/06/18 09:59 08/09/18 20:35 Pantoprazole (Protonix) 40 mg EVERY 12 HOURS ORAL 08/03/18 09:00 08/31/18 20:59 08/09/18 20:33 Quetiapine Fumarate (SEROquel) 25 mg Q12HR ORAL 08/09/18 12:15 09/08/18 12:14 08/09/18 20:33 Quetiapine Fumarate (SEROquel) 25 mg Q6H PRN ORAL For Anxiety 08/03/18 08:30 08/31/18 08:29 Sevelamer Carbonate (Renvela) 800 mg THREE TIMES A DAY ORAL 08/03/18 09:00 08/28/18 12:59 08/09/18 17:25 Vitamin B Complex/ Vit C/Folic Acid (Nephrovite) 1 tab DAILY ORAL 08/03/18 09:00 08/29/18 08:59 08/08/18 09:02 Item Value Date Time Glucose Level 565 MG/DL *H # 08/10/18 0628 Bedside Blood Glucose 133 mg/dl H 1/29/19 2125 Bedside Blood Glucose 222 mg/dl H 08/09/18 1647 Bedside Blood Glucose 375 mg/dl H 08/09/18 1127 Bedside Blood Glucose 212 mg/dl H 08/09/18 0913 Bedside Blood Glucose 60 mg/dl L 08/09/18 0613 [place] Jacques MD Aug 10, 2018 07:44
[2018-08-10] MEDS ORDERED: Sodium Polystyrene Sulfonate 15gm Powder ORAL SCH ×2 (08:30→12:44)
[2018-08-10] MEDS ORDERED: Levemir Flexpen SUBQ SCH ×2 (09:00→21:00)
[2018-08-10] MEDS: Heparin 5000 units/ml inj SUBQ SCH ×2 (09:20→21:22)
[2018-08-10] MEDS: Nephrovite tab (Rena-Vite) ORAL SCH (09:21)
--- NOTE | 2018-08-10 09:29 | Urology Progress Note ---
Assessment/Plan Assessment/Plan 1. Urinary retention. 2. Neurogenic bladder. 3. History of chronic suprapubic tube. 4. BPH history. 5. History of end-stage renal disease. 6. Hematuria. 7. Pyuria. 8. Proteinuria. 9. Renal cysts. monitor clinically keep sp tube, last exchanged 08/01 hand irrigated and do PRN s/p abx recheck urine cx at some point Subjective Allergies: Coded Allergies: CEFEPIME (Verified Allergy, Intermediate, Rash, 03/01/18) Tolerates Carbapenem Subjective all noted, new sp tube draining well, occasional leakage Objective Last 24 Hour Vital Signs Date Time Temp Pulse Resp B/P (MAP) Pulse Ox O2 Delivery O2 Flow Rate FiO2 08/10/18 04:00 98.1 85 18 123/58 95 Room Air 21 08/10/18 00:00 98.3 80 18 106/52 98 Room Air 08/09/18 20:17 98.5 85 18 109/50 98 Room Air 21 08/09/18 20:08 Room Air 08/09/18 16:00 98.9 80 19 118/54 97 Room Air 08/09/18 12:00 97.9 81 19 114/55 98 Room Air Intake and Output 08/09/18 08/10/18 19:00 07:00 Intake Total 600 ml Output Total 600 ml 500 ml Balance 0 ml -500 ml Intake Oral 600 ml Output Urine Total 600 ml 500 ml Microbiology Date/Time Source Procedure Growth Status 07/29/18 05:29 Blood Blood Culture - Final NO GROWTH AFTER 5 DAYS Complete 07/29/18 00:30 Nasal Nares MRSA Culture - Final Staphylococcus Aureus - Mrsa Complete 07/29/18 05:15 Urine,Clean Catch Urine Culture - Final Gram Positive Cocci Complete 07/29/18 00:30 Rectum VRE Culture - Final Enterococcus Faecalis - Vre Enterococcus Faecium - Vre Complete Current Medications Medications (Trade) Dose Ordered Sig/Dunia Route PRN Reason Start Time Stop Time Status Last Admin Dose Admin Dextrose (Dextrose 50%) 25 ml Q30M PRN IV Hypoglycemia 08/03/18 08:30 08/31/18 07:29 08/09/18 06:12 Dextrose (Dextrose 50%) 50 ml Q30M PRN IV Hypoglycemia 08/03/18 08:30 08/31/18 07:29 08/08/18 06:08 Duloxetine HCl (Cymbalta) 40 mg DAILY ORAL 08/03/18 09:00 09/02/18 08:59 08/10/18 09:21 Epoetin Jose (Epoetin Jose-EPBX(NON ESRD)) 10,000 unit WED-WED-WED SUBQ 08/03/18 21:00 09/02/18 20:59 08/08/18 22:01 Heparin Sodium (Porcine) (Heparin 5000 units/ml) 5,000 units EVERY 12 HOURS SUBQ 08/03/18 09:00 08/28/18 08:59 08/10/18 09:20 Insulin Aspart (NovoLOG) BEFORE MEALS AND HS SUBQ 08/09/18 11:30 08/31/18 07:29 08/10/18 05:48 Insulin Aspart (NovoLOG) 5 units NOVOTIAC SUBQ 08/10/18 11:50 09/03/18 06:29 Insulin Detemir (Levemir) 10 units Q12HR SUBQ 08/10/18 09:00 09/06/18 09:59 08/10/18 09:19 Pantoprazole (Protonix) 40 mg EVERY 12 HOURS ORAL 08/03/18 09:00 08/31/18 20:59 08/10/18 09:21 Quetiapine Fumarate (SEROquel) 25 mg Q12HR ORAL 08/09/18 12:15 09/08/18 12:14 08/10/18 09:21 Quetiapine Fumarate (SEROquel) 25 mg Q6H PRN ORAL For Anxiety 08/03/18 08:30 08/31/18 08:29 Sevelamer Carbonate (Renvela) 800 mg THREE TIMES A DAY ORAL 08/03/18 09:00 08/28/18 12:59 08/10/18 09:21 Sodium Polystyrene Sulfonate (Kayexalate) 45 gm ONCE ORAL 08/10/18 08:30 08/10/18 09:30 08/10/18 09:16 Sodium Chloride 1,000 ml @ 75 mls/hr [id number] IV 08/10/18 08:30 09/09/18 08:29 08/10/18 09:16 Vitamin B Complex/ Vit C/Folic Acid (Nephrovite) 1 tab DAILY ORAL 08/03/18 09:00 08/29/18 08:59 08/10/18 09:21 Laboratory Tests 08/09/18 11:05: White Blood Count 8.5, Red Blood Count 3.04L, Hemoglobin 9.3L, Hematocrit 28.5L , Mean Corpuscular Volume 94, Mean Corpuscular Hemoglobin 30.6, Mean Corpuscular Hemoglobin Concent 32.6, Red Cell Distribution Width 15.0H, Platelet Count 253, Mean Platelet Volume 6.5, Neutrophils (%) (Auto) 77.7H, Lymphocytes (%) (Auto) 14.6L, Monocytes (%) (Auto) 6.2, Eosinophils (%) (Auto) 1.1, Basophils (%) (Auto) 0.5, Sodium Level 137, Potassium Level 5.2H, Chloride Level 102, Carbon Dioxide Level 28, Anion Gap 7, Blood Urea Nitrogen 53H, Creatinine 5.7H, Estimat Glomerular Filtration Rate 10.1, Glucose Level 357#H, Calcium Level 8.6 08/10/18 06:28: White Blood Count 9.4, Red Blood Count 2.96L, Hemoglobin 9.1L, Hematocrit 28.8L , Mean Corpuscular Volume 97, Mean Corpuscular Hemoglobin 30.9, Mean Corpuscular Hemoglobin Concent 31.7L, Red Cell Distribution Width 15.9H, Platelet Count 264, Mean Platelet Volume 5.7L, Neutrophils (%) (Auto) 68.1, Lymphocytes (%) (Auto) 22.6, Monocytes (%) (Auto) 6.0, Eosinophils (%) (Auto) 2.5, Basophils (%) (Auto) 0.7, Sodium Level 134L, Potassium Level 5.6H, Chloride Level 101, Carbon Dioxide Level 24, Anion Gap 9, Blood Urea Nitrogen 63H, Creatinine 6.4H, Estimat Glomerular Filtration Rate 8.8, Glucose Level 565# *H, Calcium Level 8.8, Uric Acid 8.9H, Phosphorus Level 4.0, Magnesium Level 2.7H, Total Bilirubin 0.5, Aspartate Amino Transf (AST/SGOT) 16, Alanine Aminotransferase (ALT/SGPT) 14, Alkaline Phosphatase 93, Total Protein 6.1L, Albumin 2.1L, Globulin 4.0, Albumin/Globulin Ratio 0.5L Height (Feet): 6 Height (Inches): 0.00 Weight (Pounds): 152 Objective exam stable Ye Rios MD Aug 10, 2018 09:29
[2018-08-10] MEDS ORDERED: NovoLOG Insulin Flexpen SUBQ ONE (11:30)
[2018-08-10] MEDS ORDERED: Levemir Flexpen SUBQ ONE (11:30)
--- NOTE | 2018-08-10 12:15 | NUR ---
NURSE NOTES: Pt's blood sugar is critically high. Called Dr Jacques. Per Dr Jacques order, administered 8 un of Levemir and 8 units of Novolog in addition to the regular order. Will f/u
--- NOTE | 2018-08-10 12:37 | Internal Med Progress Note ---
Subjective Date of Service: Aug 10, 2018 Physician Name Jose Glasgow Attending Physician Christopher Rosado MD Current Medications Medications (Trade) Dose Ordered Sig/Dunia Route PRN Reason Start Time Stop Time Status Last Admin Dose Admin Dextrose (Dextrose 50%) 25 ml Q30M PRN IV Hypoglycemia 08/03/18 08:30 08/31/18 07:29 08/09/18 06:12 Dextrose (Dextrose 50%) 50 ml Q30M PRN IV Hypoglycemia 08/03/18 08:30 08/31/18 07:29 08/08/18 06:08 Duloxetine HCl (Cymbalta) 40 mg DAILY ORAL 08/03/18 09:00 09/02/18 08:59 08/10/18 09:21 Epoetin Jose (Epoetin Jose-EPBX(NON ESRD)) 10,000 unit WED-WED-WED SUBQ 08/03/18 21:00 09/02/18 20:59 08/08/18 22:01 Heparin Sodium (Porcine) (Heparin 5000 units/ml) 5,000 units EVERY 12 HOURS SUBQ 08/03/18 09:00 08/28/18 08:59 08/10/18 09:20 Insulin Aspart (NovoLOG) BEFORE MEALS AND HS SUBQ 08/09/18 11:30 08/31/18 07:29 08/10/18 11:38 Insulin Aspart (NovoLOG) 5 units NOVOTIAC SUBQ 08/10/18 11:50 09/03/18 06:29 08/10/18 11:38 Insulin Detemir (Levemir) 10 units Q12HR SUBQ 08/10/18 09:00 09/06/18 09:59 08/10/18 09:19 Pantoprazole (Protonix) 40 mg EVERY 12 HOURS ORAL 08/03/18 09:00 08/31/18 20:59 08/10/18 09:21 Quetiapine Fumarate (SEROquel) 25 mg Q12HR ORAL 08/09/18 12:15 09/08/18 12:14 08/10/18 09:21 Quetiapine Fumarate (SEROquel) 25 mg Q6H PRN ORAL For Anxiety 08/03/18 08:30 08/31/18 08:29 Sevelamer Carbonate (Renvela) 800 mg THREE TIMES A DAY ORAL 08/03/18 09:00 08/28/18 12:59 08/10/18 09:21 Sodium Chloride 1,000 ml @ 75 mls/hr [id number] IV 08/10/18 08:30 09/09/18 08:29 08/10/18 09:16 Vitamin B Complex/ Vit C/Folic Acid (Nephrovite) 1 tab DAILY ORAL 08/03/18 09:00 08/29/18 08:59 08/10/18 09:21 Allergies: Coded Allergies: CEFEPIME (Verified Allergy, Intermediate, Rash, 03/01/18) Tolerates Carbapenem ROS Limited/Unobtainable: No Constitutional: Reports: no symptoms HEENT: Reports: no symptoms Cardiovascular: Reports: no symptoms Respiratory: Reports: no symptoms Gastrointestinal/Abdominal: Reports: no symptoms Genitourinary: Reports: no symptoms Neurologic/Psychiatric: Reports: no symptoms Subjective 63 YO M with history of diabetes I admitted with hyperglycemia and DKA. Cover for Int Med-Dr Rosado. Await acceptance to [facility] Objective Last Vital Signs Date Time Temp Pulse Resp B/P (MAP) Pulse Ox O2 Delivery O2 Flow Rate FiO2 08/10/18 09:00 Room Air 08/10/18 08:00 98.0 98 21 119/78 100 08/10/18 04:00 21 Laboratory Tests Test 08/10/18 06:28 White Blood Count 9.4 K/UL (4.8-10.8) Red Blood Count 2.96 M/UL (4.70-6.10) L Hemoglobin 9.1 G/DL (14.2-18.0) L Hematocrit 28.8 % (42.0-52.0) L Mean Corpuscular Volume 97 FL (80-99) Mean Corpuscular Hemoglobin 30.9 PG (27.0-31.0) Mean Corpuscular Hemoglobin Concent 31.7 G/DL (32.0-36.0) L Red Cell Distribution Width 15.9 % (11.6-14.8) H Platelet Count 264 K/UL (150-450) Mean Platelet Volume 5.7 FL (6.5-10.1) L Neutrophils (%) (Auto) 68.1 % (45.0-75.0) Lymphocytes (%) (Auto) 22.6 % (20.0-45.0) Monocytes (%) (Auto) 6.0 % (1.0-10.0) Eosinophils (%) (Auto) 2.5 % (0.0-3.0) Basophils (%) (Auto) 0.7 % (0.0-2.0) Sodium Level 134 MMOL/L (136-145) L Potassium Level 5.6 MMOL/L (3.5-5.1) H Chloride Level 101 MMOL/L (98-107) Carbon Dioxide Level 24 MMOL/L (21-32) Anion Gap 9 mmol/L (5-15) Blood Urea Nitrogen 63 mg/dL (7-18) H Creatinine 6.4 MG/DL (0.55-1.30) H Estimat Glomerular Filtration Rate 8.8 mL/min (>60) Glucose Level 565 MG/DL (74-106) #*H Uric Acid 8.9 MG/DL (2.6-7.2) H Calcium Level 8.8 MG/DL (8.5-10.1) Phosphorus Level 4.0 MG/DL (2.5-4.9) Magnesium Level 2.7 MG/DL (1.8-2.4) H Total Bilirubin 0.5 MG/DL (0.2-1.0) Aspartate Amino Transf (AST/SGOT) 16 U/L (15-37) Alanine Aminotransferase (ALT/SGPT) 14 U/L (12-78) Alkaline Phosphatase 93 U/L (46-116) Total Protein 6.1 G/DL (6.4-8.2) L Albumin 2.1 G/DL (3.4-5.0) L Globulin 4.0 g/dL Albumin/Globulin Ratio 0.5 (1.0-2.7) L Intake and Output 08/09/18 08/10/18 19:00 07:00 Intake Total 600 ml Output Total 600 ml 500 ml Balance 0 ml -500 ml Intake Oral 600 ml Output Urine Total 600 ml 500 ml Objective GENERAL: The patient is awake and responsive but confused, in no acute distress. HEAD AND NECK: Pupils are equal and reactive to light. Extraocular movements are intact in the right eye. Left eye blindness, Neck was supple. No JVD. LUNGS: fair air entry. No wheezing or rales. HEART: S1 and S2. Distant heart sounds. No Murmur or gallops. ABDOMEN: Soft, nontender, and nontender. Suprapubic catheter was noted. EXTREMITIES: No cyanosis or clubbing. Bilateral lower extremity trace LE's edema. NEUROLOGIC: Cranial nerves II through XII grossly intact. Motor is 5/5 in all extremities. Gait was not assessed due to the patient's status. Assessment/Plan Assessment/Plan ASSESSMENT: 1. DKA. 2. Hypertension. 3. Dyslipidemia. 4. Diabetes type 1 with prior history of diabetic ketoacidosis. 5. Diabetic retinopathy of the left eye blindness. 6. End-stage renal disease secondary to diabetic nephrosclerosis. 7. Coronary artery disease with prior history of myocardial infarction. 8. 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 9. 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 10. Secondary hyperparathyroidism with vitamin D deficiency. 11. Anemia of chronic kidney disease. 12. Metabolic acidosis. 13. Depression with prior suicide attempt. 14. Acute encephalopathy due to toxic metabolic encephalopathy due to DKA. 15. Hyperkalemia PLAN: 1. Med/surg 2. Code status is DNR/DNI as per POLST in the chart. 3. Resume correction medications. 4. Follow up with Labs and culture. 5. Broad spectrum antibiotic with Meropenem. 6. DVT prophylaxis, heparin subcutaneous. 7. We will follow up with Dr. Delgado with critical care , Dr. Chambers from Nephrology and Dr. Rich Wick from Infectious Disease. 8. We will follow up with the cultures and laboratory in the morning. 9. Levemir and Insulin sliding scale per endocrinology 10. Discharge planning: SNF when bed available. Unable to return to [facility] 11. Kayexalate for hyperkalemia Jose Glasgow MD Aug 10, 2018 12:37
--- NOTE | 2018-08-10 12:54 | NUR ---
NURSE NOTES: Rechecked Pt's BS- still critically High. Informed Dr Jacques. No new orders received. Will f/u
[2018-08-10] MEDS ORDERED: NovoLOG Insulin Flexpen SUBQ SCH ×2 (14:00→21:00)
--- NOTE | 2018-08-10 14:04 | Pulmonology Progress Note ---
Assessment/Plan Problems: (1) Encephalopathy acute (2) DKA (diabetic ketoacidoses) (3) Anemia in chronic kidney disease (4) CKD (chronic kidney disease), stage III (5) Major depressive disorder (6) Bladder outlet obstruction (7) Suprapubic catheter Assessment/Plan all reviewed creatinine lower doing better no new complains Bs better controlled pt refusing HD check electrolytes continue DNR dvt prophylaxis All medications and treatment were reviewed.med recon done, dc to correction today Subjective ROS Limited/Unobtainable: No Constitutional: Reports: no symptoms HEENT: Repors: no symptoms Respiratory: Reports: no symptoms Allergies: Coded Allergies: CEFEPIME (Verified Allergy, Intermediate, Rash, 03/01/18) Tolerates Carbapenem Objective Last 24 Hour Vital Signs Date Time Temp Pulse Resp B/P (MAP) Pulse Ox O2 Delivery O2 Flow Rate FiO2 08/10/18 12:00 97.8 90 19 121/56 99 Room Air 08/10/18 09:00 Room Air 08/10/18 08:00 98.0 98 21 119/78 100 Room Air 08/10/18 04:00 98.1 85 18 123/58 95 Room Air 21 08/10/18 00:00 98.3 80 18 106/52 98 Room Air 08/09/18 20:17 98.5 85 18 109/50 98 Room Air 21 08/09/18 20:08 Room Air 08/09/18 16:00 98.9 80 19 118/54 97 Room Air Intake and Output 08/09/18 08/10/18 19:00 07:00 Intake Total 600 ml Output Total 600 ml 500 ml Balance 0 ml -500 ml Intake Oral 600 ml Output Urine Total 600 ml 500 ml Objective General Appearance: WD/WN HEENT: normocephalic, atraumatic, anicteric Respiratory/Chest: chest wall non-tender, lungs clear Breasts: no masses Cardiovascular: normal peripheral pulses, normal rate Abdomen: normal bowel sounds, soft, non tender Extremities: no cyanosis Skin: no rash Neurologic/Psychiatric: cna pct II-XII grossly normal Lymphatic: no neck adenopathy Laboratory Tests 08/10/18 06:28: White Blood Count 9.4, Red Blood Count 2.96L, Hemoglobin 9.1L, Hematocrit 28.8L , Mean Corpuscular Volume 97, Mean Corpuscular Hemoglobin 30.9, Mean Corpuscular Hemoglobin Concent 31.7L, Red Cell Distribution Width 15.9H, Platelet Count 264, Mean Platelet Volume 5.7L, Neutrophils (%) (Auto) 68.1, Lymphocytes (%) (Auto) 22.6, Monocytes (%) (Auto) 6.0, Eosinophils (%) (Auto) 2.5, Basophils (%) (Auto) 0.7, Sodium Level 134L, Potassium Level 5.6H, Chloride Level 101, Carbon Dioxide Level 24, Anion Gap 9, Blood Urea Nitrogen 63H, Creatinine 6.4H, Estimat Glomerular Filtration Rate 8.8, Glucose Level 565# *H, Uric Acid 8.9H, Calcium Level 8.8, Phosphorus Level 4.0, Magnesium Level 2.7H, Total Bilirubin 0.5, Aspartate Amino Transf (AST/SGOT) 16, Alanine Aminotransferase (ALT/SGPT) 14, Alkaline Phosphatase 93, Total Protein 6.1L, Albumin 2.1L, Globulin 4.0, Albumin/Globulin Ratio 0.5L Current Medications Medications (Trade) Dose Ordered Sig/Dunia Route PRN Reason Start Time Stop Time Status Last Admin Dose Admin Dextrose (Dextrose 50%) 25 ml Q30M PRN IV Hypoglycemia 08/03/18 08:30 08/31/18 07:29 08/09/18 06:12 Dextrose (Dextrose 50%) 50 ml Q30M PRN IV Hypoglycemia 08/03/18 08:30 08/31/18 07:29 08/08/18 06:08 Duloxetine HCl (Cymbalta) 40 mg DAILY ORAL 08/03/18 09:00 09/02/18 08:59 08/10/18 09:21 Epoetin Jose (Epoetin Jose-EPBX(NON ESRD)) 10,000 unit WED-WED-WED SUBQ 08/03/18 21:00 09/02/18 20:59 08/08/18 22:01 Heparin Sodium (Porcine) (Heparin 5000 units/ml) 5,000 units EVERY 12 HOURS SUBQ 08/03/18 09:00 08/28/18 08:59 08/10/18 09:20 Insulin Aspart (NovoLOG) BEFORE MEALS AND HS SUBQ 08/09/18 11:30 08/31/18 07:29 08/10/18 11:38 Insulin Aspart (NovoLOG) 5 units NOVOTIAC SUBQ 08/10/18 11:50 09/03/18 06:29 08/10/18 11:38 Insulin Aspart (NovoLOG) 10 units ONCE SUBQ 08/10/18 14:00 08/10/18 16:00 Insulin Detemir (Levemir) 10 units Q12HR SUBQ 08/10/18 09:00 09/06/18 09:59 08/10/18 09:19 Pantoprazole (Protonix) 40 mg EVERY 12 HOURS ORAL 08/03/18 09:00 08/31/18 20:59 08/10/18 09:21 Quetiapine Fumarate (SEROquel) 25 mg Q12HR ORAL 08/09/18 12:15 09/08/18 12:14 08/10/18 09:21 Quetiapine Fumarate (SEROquel) 25 mg Q6H PRN ORAL For Anxiety 08/03/18 08:30 08/31/18 08:29 Sevelamer Carbonate (Renvela) 800 mg THREE TIMES A DAY ORAL 08/03/18 09:00 08/28/18 12:59 08/10/18 09:21 Sodium Chloride 1,000 ml @ 75 mls/hr [id number] IV 08/10/18 08:30 09/09/18 08:29 08/10/18 09:16 Vitamin B Complex/ Vit C/Folic Acid (Nephrovite) 1 tab DAILY ORAL 08/03/18 09:00 08/29/18 08:59 08/10/18 09:21 Esdras Delgado MD Aug 10, 2018 14:04
--- NOTE | 2018-08-10 14:37 | NUR ---
NURSE NOTES: Called Dr Jacques and informed BS reading is still critically high. Per 's order, 10 units of Novolog administered ans stat labs ordered
--- NOTE | 2018-08-10 14:59 | Infectious Diseases Prog Note ---
Assessment/Plan Assessment/Plan Severe sepsis -likely 2ry to UTI- SP, s/p rx -u.a wbc tntc, nit neg, luek +3; ucx <10k GPC -Bcx Neg -CXR: Suspected atelectasis or scarring right Afebrile Leukocytosis, SP DKA RIVKA, improving hx of recent sepsis 2ry to UTI and bacteremia 07/08/18 UCx - P.a. MDR and Providencia 07/08/18 BCx ESBL Proteus and K. pneumo Dm2 HLD MDD with suicidal attempts in the past w/ resultant chronic encephalopathy CAD/DC BPH anemia asthma colonic polyps ESRD s/p renal and pancreas tx ~10 yrs ago now CKD 4 ConS bacteremia/line infection urinary retention s/p suprapubic catheter 09/2017 recurrent hematuria multiple hospital admissions recurrent UTI DNR Plan: - Monitor off abx -08/02 SP Meropenem d# 5 07/29 SP one dose Amikacin -07/22 SP Meropenem, #14 - f/u cx -Monitor CBC/CMP, temperatures Subjective Allergies: Coded Allergies: CEFEPIME (Verified Allergy, Intermediate, Rash, 03/01/18) Tolerates Carbapenem Subjective Afebrile No leukocytosis Objective Vital Signs Last 24 Hour Vital Signs Date Time Temp Pulse Resp B/P (MAP) Pulse Ox O2 Delivery O2 Flow Rate FiO2 08/10/18 12:00 97.8 90 19 121/56 99 Room Air 08/10/18 09:00 Room Air 08/10/18 08:00 98.0 98 21 119/78 100 Room Air 08/10/18 04:00 98.1 85 18 123/58 95 Room Air 08/10/18 00:00 98.3 80 18 106/52 98 Room Air 08/09/18 20:17 98.5 85 18 109/50 98 Room Air 08/09/18 20:08 Room Air 08/09/18 16:00 98.9 80 19 118/54 97 Room Air Height (Feet): 6 Height (Inches): 0.00 Weight (Pounds): 152 Objective HEENT: NCAT, MMM, EOMI Lungs: chest wall tender Heart: HR/BP stable, Abdomen: soft, non-tender, ND Extremities: no C/C/E Laboratory Tests Test 08/10/18 06:28 White Blood Count 9.4 K/UL (4.8-10.8) Red Blood Count 2.96 M/UL (4.70-6.10) L Hemoglobin 9.1 G/DL (14.2-18.0) L Hematocrit 28.8 % (42.0-52.0) L Mean Corpuscular Volume 97 FL (80-99) Mean Corpuscular Hemoglobin 30.9 PG (27.0-31.0) Mean Corpuscular Hemoglobin Concent 31.7 G/DL (32.0-36.0) L Red Cell Distribution Width 15.9 % (11.6-14.8) H Platelet Count 264 K/UL (150-450) Mean Platelet Volume 5.7 FL (6.5-10.1) L Neutrophils (%) (Auto) 68.1 % (45.0-75.0) Lymphocytes (%) (Auto) 22.6 % (20.0-45.0) Monocytes (%) (Auto) 6.0 % (1.0-10.0) Eosinophils (%) (Auto) 2.5 % (0.0-3.0) Basophils (%) (Auto) 0.7 % (0.0-2.0) Sodium Level 134 MMOL/L (136-145) L Potassium Level 5.6 MMOL/L (3.5-5.1) H Chloride Level 101 MMOL/L (98-107) Carbon Dioxide Level 24 MMOL/L (21-32) Anion Gap 9 mmol/L (5-15) Blood Urea Nitrogen 63 mg/dL (7-18) H Creatinine 6.4 MG/DL (0.55-1.30) H Estimat Glomerular Filtration Rate 8.8 mL/min (>60) Glucose Level 565 MG/DL (74-106) #*H Uric Acid 8.9 MG/DL (2.6-7.2) H Calcium Level 8.8 MG/DL (8.5-10.1) Phosphorus Level 4.0 MG/DL (2.5-4.9) Magnesium Level 2.7 MG/DL (1.8-2.4) H Total Bilirubin 0.5 MG/DL (0.2-1.0) Aspartate Amino Transf (AST/SGOT) 16 U/L (15-37) Alanine Aminotransferase (ALT/SGPT) 14 U/L (12-78) Alkaline Phosphatase 93 U/L (46-116) Total Protein 6.1 G/DL (6.4-8.2) L Albumin 2.1 G/DL (3.4-5.0) L Globulin 4.0 g/dL Albumin/Globulin Ratio 0.5 (1.0-2.7) L Current Medications Medications (Trade) Dose Ordered Sig/Dunia Route PRN Reason Start Time Stop Time Status Last Admin Dose Admin Dextrose (Dextrose 50%) 25 ml Q30M PRN IV Hypoglycemia 08/03/18 08:30 08/31/18 07:29 08/09/18 06:12 Dextrose (Dextrose 50%) 50 ml Q30M PRN IV Hypoglycemia 08/03/18 08:30 08/31/18 07:29 08/08/18 06:08 Duloxetine HCl (Cymbalta) 40 mg DAILY ORAL 08/03/18 09:00 09/02/18 08:59 08/10/18 09:21 Epoetin Jose (Epoetin Jose-EPBX(NON ESRD)) 10,000 unit WED-WED-WED SUBQ 08/03/18 21:00 09/02/18 20:59 08/08/18 22:01 Heparin Sodium (Porcine) (Heparin 5000 units/ml) 5,000 units EVERY 12 HOURS SUBQ 08/03/18 09:00 08/28/18 08:59 08/10/18 09:20 Insulin Aspart (NovoLOG) BEFORE MEALS AND HS SUBQ 08/09/18 11:30 08/31/18 07:29 08/10/18 11:38 Insulin Aspart (NovoLOG) 5 units NOVOTIAC SUBQ 08/10/18 11:50 09/03/18 06:29 08/10/18 11:38 Insulin Aspart (NovoLOG) 10 units ONCE SUBQ 08/10/18 14:00 08/10/18 16:00 08/10/18 14:23 Insulin Detemir (Levemir) 10 units Q12HR SUBQ 08/10/18 09:00 09/06/18 09:59 08/10/18 09:19 Pantoprazole (Protonix) 40 mg EVERY 12 HOURS ORAL 08/03/18 09:00 08/31/18 20:59 08/10/18 09:21 Quetiapine Fumarate (SEROquel) 25 mg Q12HR ORAL 08/09/18 12:15 09/08/18 12:14 08/10/18 09:21 Quetiapine Fumarate (SEROquel) 25 mg Q6H PRN ORAL For Anxiety 08/03/18 08:30 08/31/18 08:29 Sevelamer Carbonate (Renvela) 800 mg THREE TIMES A DAY ORAL 08/03/18 09:00 08/28/18 12:59 08/10/18 14:26 Sodium Chloride 1,000 ml @ 75 mls/hr [id number] IV 08/10/18 08:30 09/09/18 08:29 08/10/18 09:16 Vitamin B Complex/ Vit C/Folic Acid (Nephrovite) 1 tab DAILY ORAL 08/03/18 09:00 08/29/18 08:59 08/10/18 09:21 William Caputo MD Aug 10, 2018 14:59
[2018-08-10 15:29] LABS: ANION GAP 15 mmol/L (5-15); BLOOD UREA NITROGEN 66 mg/dL (7-18); CALCIUM 8.5 MG/DL (8.5-10.1); CARBON DIOXIDE 18 MMOL/L (21-32); CHLORIDE 92 MMOL/L (98-107); CREATININE 6.3 MG/DL (0.55-1.30); SODIUM 124 MMOL/L (136-145)
--- NOTE | 2018-08-10 15:51 | NUR ---
NURSE NOTES: Nursing supervisor [employer] made aware reg the transfer order. Awaiting for the bed. Pt is asymptomatic.
--- NOTE | 2018-08-10 16:57 | Nephrology Progress Note ---
Assessment/Plan Problem List: (1) Acute on chronic renal failure (2) Bladder outlet obstruction (3) Anemia in chronic kidney disease (4) BPH (benign prostatic hypertrophy) (5) DKA (diabetic ketoacidoses) (6) Encephalopathy acute Assessment High Glucose now improved ESRD , in need of dialysis , refuses- presents with high K Encephalopathy , Metabolic Acidosis , Uremic and Diabetic Sever Anemia: Mixed etiology HTn, but presents with low BP Supra Pubic Cath, h/o UTI, BPH Psych disease CAD, elevated Troponin I s/p DKAs Plan Kayexelate for high K DC mag oxide and bicitra Transfuse as needed Sugar control will do poorly in view of no dialysis plans DNR per orders Subjective ROS Limited/Unobtainable: No Constitutional: Reports: malaise, weakness Objective Objective Last 24 Hour Vital Signs Date Time Temp Pulse Resp B/P (MAP) Pulse Ox O2 Delivery O2 Flow Rate FiO2 08/10/18 16:00 98.8 97 19 159/80 99 Room Air 08/10/18 12:00 97.8 90 19 121/56 99 Room Air 08/10/18 09:00 Room Air 08/10/18 08:00 98.0 98 21 119/78 100 Room Air 08/10/18 04:00 98.1 85 18 123/58 95 Room Air 21 08/10/18 00:00 98.3 80 18 106/52 98 Room Air 08/09/18 20:17 98.5 85 18 109/50 98 Room Air 21 08/09/18 20:08 Room Air Intake and Output 08/09/18 08/10/18 19:00 07:00 Intake Total 600 ml Output Total 600 ml 500 ml Balance 0 ml -500 ml Intake Oral 600 ml Output Urine Total 600 ml 500 ml Laboratory Tests 08/10/18 06:28: White Blood Count 9.4, Red Blood Count 2.96L, Hemoglobin 9.1L, Hematocrit 28.8L , Mean Corpuscular Volume 97, Mean Corpuscular Hemoglobin 30.9, Mean Corpuscular Hemoglobin Concent 31.7L, Red Cell Distribution Width 15.9H, Platelet Count 264, Mean Platelet Volume 5.7L, Neutrophils (%) (Auto) 68.1, Lymphocytes (%) (Auto) 22.6, Monocytes (%) (Auto) 6.0, Eosinophils (%) (Auto) 2.5, Basophils (%) (Auto) 0.7, Sodium Level 134L, Potassium Level 5.6H, Chloride Level 101, Carbon Dioxide Level 24, Anion Gap 9, Blood Urea Nitrogen 63H, Creatinine 6.4H, Estimat Glomerular Filtration Rate 8.8, Glucose Level 565# *H, Uric Acid 8.9H, Calcium Level 8.8, Phosphorus Level 4.0, Magnesium Level 2.7H, Total Bilirubin 0.5, Aspartate Amino Transf (AST/SGOT) 16, Alanine Aminotransferase (ALT/SGPT) 14, Alkaline Phosphatase 93, Total Protein 6.1L, Albumin 2.1L, Globulin 4.0, Albumin/Globulin Ratio 0.5L 08/10/18 14:30: Sodium Level 124#L, Potassium Level 6.0*H, Chloride Level 92L, Carbon Dioxide Level 18L, Anion Gap 15, Blood Urea Nitrogen 66H, Creatinine 6.3H, Estimat Glomerular Filtration Rate 9.0, Glucose Level 948#*H, Calcium Level 8.5, Lactic Acid Level 1.00, Beta-Hydroxybutyric Acid [Pending], Acetone Level Positive- small Height (Feet): 6 Height (Inches): 0.00 Weight (Pounds): 152 General Appearance: no apparent distress Cardiovascular: tachycardia Respiratory/Chest: decreased breath sounds Abdomen: distended Objective no change Luis Chambers MD Aug 10, 2018 16:57
--- NOTE | 2018-08-10 17:30 | NUR ---
NURSE NOTES: Spoke to the ICU charge nurse. Bed is not available. Nursing supervisor [employer] made aware
--- NOTE | 2018-08-10 18:58 | NUR ---
HAND-OFF: Report given to NICOLE John. .
--- NOTE | 2018-08-10 19:20 | General Progress Note ---
Assessment/Plan Problem List: (1) encephalopathy due to metabolic do (2) Major depressive disorder ICD Codes: F32.9 - Major depressive disorder, single episode, unspecified SNOMED: 790260704 Assessment/Plan cont Cymbalta 40mg qam seroquel 25mg q6hr prn agitation seroquel 25mg po bid provided ro/st Subjective Neurologic/Psychiatric: Reports: anxiety, depressed, emotional problems Allergies: Coded Allergies: CEFEPIME (Verified Allergy, Intermediate, Rash, 03/01/18) Tolerates Carbapenem Subjective the pt is irritable and angry Objective Last 24 Hour Vital Signs Date Time Temp Pulse Resp B/P (MAP) Pulse Ox O2 Delivery O2 Flow Rate FiO2 08/10/18 16:00 98.8 97 19 159/80 99 Room Air 08/10/18 12:00 97.8 90 19 121/56 99 Room Air 08/10/18 09:00 Room Air 08/10/18 08:00 98.0 98 21 119/78 100 Room Air 08/10/18 04:00 98.1 85 18 123/58 95 Room Air 21 08/10/18 00:00 98.3 80 18 106/52 98 Room Air 08/09/18 20:17 98.5 85 18 109/50 98 Room Air 21 08/09/18 20:08 Room Air Intake and Output 08/09/18 08/10/18 19:00 07:00 Intake Total 600 ml Output Total 600 ml 500 ml Balance 0 ml -500 ml Intake Oral 600 ml Output Urine Total 600 ml 500 ml Laboratory Tests 08/10/18 06:28: White Blood Count 9.4, Red Blood Count 2.96L, Hemoglobin 9.1L, Hematocrit 28.8L , Mean Corpuscular Volume 97, Mean Corpuscular Hemoglobin 30.9, Mean Corpuscular Hemoglobin Concent 31.7L, Red Cell Distribution Width 15.9H, Platelet Count 264, Mean Platelet Volume 5.7L, Neutrophils (%) (Auto) 68.1, Lymphocytes (%) (Auto) 22.6, Monocytes (%) (Auto) 6.0, Eosinophils (%) (Auto) 2.5, Basophils (%) (Auto) 0.7, Sodium Level 134L, Potassium Level 5.6H, Chloride Level 101, Carbon Dioxide Level 24, Anion Gap 9, Blood Urea Nitrogen 63H, Creatinine 6.4H, Estimat Glomerular Filtration Rate 8.8, Glucose Level 565# *H, Uric Acid 8.9H, Calcium Level 8.8, Phosphorus Level 4.0, Magnesium Level 2.7H, Total Bilirubin 0.5, Aspartate Amino Transf (AST/SGOT) 16, Alanine Aminotransferase (ALT/SGPT) 14, Alkaline Phosphatase 93, Total Protein 6.1L, Albumin 2.1L, Globulin 4.0, Albumin/Globulin Ratio 0.5L 08/10/18 14:30: Sodium Level 124#L, Potassium Level 6.0*H, Chloride Level 92L, Carbon Dioxide Level 18L, Anion Gap 15, Blood Urea Nitrogen 66H, Creatinine 6.3H, Estimat Glomerular Filtration Rate 9.0, Glucose Level 948#*H, Calcium Level 8.5, Lactic Acid Level 1.00, Beta-Hydroxybutyric Acid [Pending], Acetone Level Positive- small Height (Feet): 6 Height (Inches): 0.00 Weight (Pounds): 152 General Appearance: alert, agitated Fatmata Lu MD Aug 10, 2018 19:20
--- NOTE | 2018-08-10 19:25 | NUR ---
NURSE NOTES: Received pt from Joe RIVERA. Pt sinus rhythm on the monitor with HR 95. On Room air at this time. No IV access. Suprapubic cath draining by gravity. pt noted to have perineal redness at this time, also noted to have multiple scratched all over body. Pt Noted to also be itchy and scratches him self. No open wounds at this time. Blood glucose noted to be critically high at this time. Random glucose ordered. No signs of distress, pt only complaining of nausea denies any other pain or discomfort at this time. Will continue with plan of care
[2018-08-10] MEDS ORDERED: Insulin Human Regular 100units/ml 3ml IV PRN (20:30)
[2018-08-10] MEDS ORDERED: Insulin Rate Change 1 Each MISC PRN (20:30)
--- NOTE | 2018-08-10 20:30 | NUR ---
NURSE NOTES: MD Jacques called back with orders, orders read back and confirmed. Will continue with plan of care
[2018-08-10] MEDS ORDERED: Epoetin Alfa-EPBX (NON ESRD)10,000 unit/ml vial SUBQ ONE (21:00)
[2018-08-10] MEDS ORDERED: Epoetin Alfa-EPBX (NON ESRD)10,000 unit/ml vial SUBQ SCH (21:00)
[2018-08-10] MEDS: Insulin Human Regular 100units/ml 3ml IV PRN ×3 (21:21→23:12)
--- NOTE | 2018-08-10 23:32 | NUR ---
NURSE NOTES: BS 359 at this time. Insulin gtt continues algorithm 2. 9 u/hr with and extra 10 u coverage given. Pt denies and pain or discomfort at this time. Will continue to monitor.
[2018-08-11] VITALS (15 sets, daily range): BP systolic 80–128; BP diastolic 33–73
--- NOTE | 2018-08-11 02:00 | NUR ---
NURSE NOTES: BS 58 50ml D50 given at this time. Will recheck BS in 30 min
[2018-08-11] MEDS ORDERED: Insulin Rate Change 1 Each MISC PRN (02:30)
--- NOTE | 2018-08-11 02:40 | NUR ---
NURSE NOTES: BS now 100. Now on algorithm 1, rate now 0.2 u/hr
--- NOTE | 2018-08-11 03:00 | NUR ---
NURSE NOTES: BS 65, [place] juice was given. Pt denies any nausea or discomfort at this time. Insulin gtt on hold
--- NOTE | 2018-08-11 04:00 | NUR ---
NURSE NOTES: BS 77 @ this time. Insulin gtt remains off.
--- NOTE | 2018-08-11 04:30 | NUR ---
NURSE NOTES: Paged MD Jacques in regards to low blood sugar and insulin gtt on hold. Awaiting call back for further orders
--- NOTE | 2018-08-11 05:18 | NUR ---
NURSE NOTES: MD Jacques called back with orders to continues insulin gtt on Algo 1
[2018-08-11 05:33] LABS: BASOPHILS % (AUTO) 0.7 % (0.0-2.0); HEMATOCRIT 27.5 % (42.0-52.0); HEMOGLOBIN 8.7 G/DL (14.2-18.0); LYMPHOCYTES % (AUTO) 23.4 % (20.0-45.0); MEAN CORPUSCULAR VOLUME 97 FL (80-99); NEUTROPHILS % (AUTO) 65.9 % (45.0-75.0); PLATELET COUNT 259 K/UL (150-450); RED BLOOD COUNT 2.82 M/UL (4.70-6.10); RED CELL DISTRIBUTION WIDTH 16.6 % (11.6-14.8); WHITE BLOOD COUNT 9.2 K/UL (4.8-10.8)
--- NOTE | 2018-08-11 06:00 | NUR ---
NURSE NOTES: BS 126, Pt continues on Algorithm 1 at this time. Current rate 0.8 u/hr. Pt denies any pain or discomfort at this time. Afebrile. No signs of distress noted. Will continue with plan of care
[2018-08-11 06:21] LABS: PHOSPHORUS 3.9 MG/DL (2.5-4.9)
[2018-08-11] MEDS ORDERED: NovoLOG Insulin Flexpen SUBQ SCH ×2 (06:30→11:30)
[2018-08-11 06:53] LABS: ALANINE AMINOTRANSFERASE 12 U/L (12-78); ALBUMIN/GLOBULIN RATIO 0.5 (1.0-2.7); ALKALINE PHOSPHATASE 87 U/L (46-116); ANION GAP 12 mmol/L (5-15); ASPARTATE AMINO TRANSFERASE 16 U/L (15-37); BILIRUBIN,TOTAL 0.3 MG/DL (0.2-1.0); BLOOD UREA NITROGEN 68 mg/dL (7-18); CALCIUM 8.5 MG/DL (8.5-10.1); CARBON DIOXIDE 24 MMOL/L (21-32); CHLORIDE 102 MMOL/L (98-107); CREATININE 6.4 MG/DL (0.55-1.30); POTASSIUM 3.9 MMOL/L (3.5-5.1); SODIUM 137 MMOL/L (136-145)
--- NOTE | 2018-08-11 07:09 | NUR ---
HAND-OFF: Report given to Ahsan RN using SBAR. Pt continues on insuling gtt at this time. Notified RN MD Jacques want to keep patient on algo 1. VS stable. No signs of distress noted.
--- NOTE | 2018-08-11 07:19 | General Progress Note ---
Assessment/Plan Problem List: (1) DKA (diabetic ketoacidoses) ICD Codes: E13.10 - DKA (diabetic ketoacidoses) SNOMED: 04859378 Qualifiers: Qualified Codes: E10.10 - Type 1 diabetes mellitus with ketoacidosis without coma (2) CKD (chronic kidney disease), stage III ICD Codes: N18.3 - CKD (chronic kidney disease), stage III SNOMED: 878577149 (3) encephalopathy due to metabolic do (4) Pulmonary HTN ICD Codes: I27.0 - Pulmonary HTN SNOMED: 15569453 Assessment/Plan DC insulin gtt start Levemir 10 units bid - do not hold without notifying me start Novolog 5 units ac tid start NISS ac / hs Subjective ROS Limited/Unobtainable: Yes Allergies: Coded Allergies: CEFEPIME (Verified Allergy, Intermediate, Rash, 03/01/18) Tolerates Carbapenem Subjective transferred to ICU for glucose of 900 in order to be initiated on insulin gtt glycemic control improved Objective Last 24 Hour Vital Signs Date Time Temp Pulse Resp B/P (MAP) Pulse Ox O2 Delivery O2 Flow Rate FiO2 08/11/18 07:00 74 19 99/50 99 Room Air 08/11/18 05:00 76 19 101/49 99 Room Air 08/11/18 04:00 98.2 86 17 96/49 99 Room Air 08/11/18 04:00 Room Air 08/11/18 04:00 74 08/11/18 03:00 74 19 80/36 97 Room Air 08/11/18 02:00 74 19 80/36 97 Room Air 08/11/18 01:00 79 17 89/44 99 Room Air 08/11/18 00:00 Room Air 08/11/18 00:00 86 08/11/18 00:00 88 19 88/54 97 Room Air 08/10/18 23:00 98.1 93 19 100/56 97 Room Air 08/10/18 22:00 88 19 100/56 97 Room Air 08/10/18 21:00 88 19 109/51 97 Room Air 08/10/18 20:00 Room Air 08/10/18 20:00 96 08/10/18 20:00 96 18 121/63 98 Room Air 08/10/18 19:00 98.3 88 19 103/58 100 Room Air 08/10/18 16:00 98.8 97 19 159/80 99 Room Air 08/10/18 12:00 97.8 90 19 121/56 99 Room Air 08/10/18 09:00 Room Air 08/10/18 08:00 98.0 98 21 119/78 100 Room Air Intake and Output 08/10/18 08/11/18 19:00 07:00 Intake Total 600 ml 777.5 ml Output Total 1530 ml 930 ml Balance -930 ml -152.5 ml IV Total 600 ml 777.5 ml Output Urine Total 1530 ml 930 ml # Bowel Movements 1 3 Laboratory Tests 08/10/18 14:30: Sodium Level 124#L, Potassium Level 6.0*H, Chloride Level 92L, Carbon Dioxide Level 18L, Anion Gap 15, Blood Urea Nitrogen 66H, Creatinine 6.3H, Estimat Glomerular Filtration Rate 9.0, Glucose Level 948#*H, Lactic Acid Level 1.00, Calcium Level 8.5, Beta-Hydroxybutyric Acid [Pending], Acetone Level Positive- small 08/10/18 20:30: Glucose Level 700#*H 08/11/18 04:05: Sodium Level 137#, Potassium Level 3.9, Chloride Level 102, Carbon Dioxide Level 24, Anion Gap 12, Blood Urea Nitrogen 68H, Creatinine 6.4H, Estimat Glomerular Filtration Rate 8.8, Glucose Level 53#L, Calcium Level 8.5, White Blood Count 9.2, Red Blood Count 2.82L, Hemoglobin 8.7L, Hematocrit 27.5L, Mean Corpuscular Volume 97, Mean Corpuscular Hemoglobin 30.9, Mean Corpuscular Hemoglobin Concent 31.7L, Red Cell Distribution Width 16.6H, Platelet Count 259 , Mean Platelet Volume 5.5L, Neutrophils (%) (Auto) 65.9, Lymphocytes (%) (Auto ) 23.4, Monocytes (%) (Auto) 7.0, Eosinophils (%) (Auto) 3.0, Basophils (%) ( Auto) 0.7, Phosphorus Level 3.9, Magnesium Level 2.6H, Total Bilirubin 0.3, Aspartate Amino Transf (AST/SGOT) 16, Alanine Aminotransferase (ALT/SGPT) 12, Alkaline Phosphatase 87, Total Protein 5.7L, Albumin 2.0L, Globulin 3.7, Albumin /Globulin Ratio 0.5L Height (Feet): 6 Height (Inches): 0.00 Weight (Pounds): 153 General Appearance: no apparent distress Neck: normal alignment Cardiovascular: normal rate Respiratory/Chest: normal breath sounds Abdomen: normal bowel sounds Pelvis: normal external exam Objective Current Medications Medications (Trade) Dose Ordered Sig/Dunia Route PRN Reason Start Time Stop Time Status Last Admin Dose Admin Dextrose (Dextrose 50%) 25 ml Q30M PRN IV HYPOGLYCEMIA 08/10/18 20:30 09/09/18 20:29 Dextrose (Dextrose 50%) 50 ml Q30M PRN IV HYPOGLYCEMIA 08/10/18 20:30 09/09/18 20:29 08/11/18 02:16 Duloxetine HCl (Cymbalta) 40 mg DAILY ORAL 08/11/18 09:00 09/02/18 08:59 Epoetin Jose (Epoetin Jose-EPBX(NON ESRD)) 10,000 unit WED-WED-WED SUBQ 08/10/18 21:00 09/02/18 20:59 08/10/18 21:26 Heparin Sodium (Porcine) (Heparin 5000 units/ml) 5,000 units EVERY 12 HOURS SUBQ 08/10/18 21:00 08/28/18 08:59 08/10/18 21:22 Insulin Human Regular (NovoLIN R) 5 units PRN PRN IV BS 200-299 08/10/18 20:30 09/09/18 20:29 08/11/18 00:17 Insulin Human Regular (NovoLIN R) 10 units PRN PRN IV BS=>300 08/10/18 20:30 09/09/18 20:29 08/10/18 23:12 Insulin Human Regular 100 units/ Sodium Chloride 101 ml @ 0 mls/hr Q24H IV 08/11/18 02:30 09/10/18 02:29 08/11/18 02:40 Miscellaneous Medication (Insulin Rate Change) 1 ea PRN PRN MISC Hyperglycemia 08/11/18 02:30 09/10/18 02:29 Pantoprazole (Protonix) 40 mg EVERY 12 HOURS ORAL 08/10/18 21:00 08/31/18 20:59 08/10/18 21:22 Quetiapine Fumarate (SEROquel) 25 mg Q12HR ORAL 08/10/18 21:00 09/08/18 12:14 08/10/18 21:22 Quetiapine Fumarate (SEROquel) 25 mg Q6H PRN ORAL For Anxiety 08/10/18 19:00 08/31/18 18:59 Sevelamer Carbonate (Renvela) 800 mg THREE TIMES A DAY ORAL 08/11/18 09:00 08/28/18 12:59 Sodium Chloride 1,000 ml @ 75 mls/hr [id number] IV 08/10/18 19:00 09/09/18 08:29 08/10/18 19:53 Vitamin B Complex/ Vit C/Folic Acid (Nephrovite) 1 tab DAILY ORAL 08/11/18 09:00 08/29/18 08:59 Item Value Date Time Bedside Blood Glucose 150 mg/dl H 08/11/18 0700 Bedside Blood Glucose 126 mg/dl H 08/11/18 0600 Bedside Blood Glucose 100 mg/dl 08/11/18 0240 Glucose Level 700 MG/DL *H # 08/10/18 2030 Glucose Level 948 MG/DL *H # 08/10/18 1430 [place] Jacques MD Aug 11, 2018 07:19
--- NOTE | 2018-08-11 07:20 | NUR ---
NURSE NOTES: Report received from Dora RIVERA. Pt alert and oriented x3, able to make needs known. Pt on security monitor, SR. Pt on room air, clear breath sounds bilaterally. RFA IV with maintenance fluid and insulin drip running. Cline intact and draining clear yellow urine to gravity bag. Safety measures in place with bed locked and in lowest position, side rails x3 up and bed alarm on. Will continue to monitor and continue plan of care.
[2018-08-11] MEDS: Heparin 5000 units/ml inj SUBQ SCH ×2 (08:07→20:48)
--- NOTE | 2018-08-11 08:48 | Infectious Diseases Prog Note ---
Assessment/Plan Assessment/Plan Severe sepsis -likely 2ry to UTI- SP, s/p rx -u.a wbc tntc, nit neg, luek +3; ucx <10k GPC -Bcx Neg -CXR: Suspected atelectasis or scarring right Afebrile Leukocytosis, SP DKA RIVKA, improving hx of recent sepsis 2ry to UTI and bacteremia 07/08/18 UCx - P.a. MDR and Providencia 07/08/18 BCx ESBL Proteus and K. pneumo Dm2 HLD MDD with suicidal attempts in the past w/ resultant chronic encephalopathy CAD/VA BPH anemia asthma colonic polyps ESRD s/p renal and pancreas tx ~10 yrs ago now CKD 4 ConS bacteremia/line infection urinary retention s/p suprapubic catheter 09/2017 recurrent hematuria multiple hospital admissions recurrent UTI DNR Plan: - Continue to monitor off abx -08/02 SP Meropenem d# 5 07/29 SP one dose Amikacin -07/22 SP Meropenem, #14 - f/u cx -Monitor CBC/CMP, temperatures Subjective Allergies: Coded Allergies: CEFEPIME (Verified Allergy, Intermediate, Rash, 03/01/18) Tolerates Carbapenem Subjective Sent to ICU for Blood Sugar of 900 Afebrile No leukocytosis Objective Vital Signs Last 24 Hour Vital Signs Date Time Temp Pulse Resp B/P (MAP) Pulse Ox O2 Delivery O2 Flow Rate FiO2 08/11/18 07:00 74 19 99/50 99 Room Air 08/11/18 05:00 76 19 101/49 99 Room Air 08/11/18 04:00 98.2 86 17 96/49 99 Room Air 08/11/18 04:00 Room Air 08/11/18 04:00 74 08/11/18 03:00 74 19 80/36 97 Room Air 08/11/18 02:00 74 19 80/36 97 Room Air 08/11/18 01:00 79 17 89/44 99 Room Air 08/11/18 00:00 Room Air 08/11/18 00:00 86 08/11/18 00:00 88 19 88/54 97 Room Air 08/10/18 23:00 98.1 93 19 100/56 97 Room Air 08/10/18 22:00 88 19 100/56 97 Room Air 08/10/18 21:00 88 19 109/51 97 Room Air 08/10/18 20:00 Room Air 08/10/18 20:00 96 08/10/18 20:00 96 18 121/63 98 Room Air 08/10/18 19:00 98.3 88 19 103/58 100 Room Air 08/10/18 16:00 98.8 97 19 159/80 99 Room Air 08/10/18 12:00 97.8 90 19 121/56 99 Room Air 08/10/18 09:00 Room Air Height (Feet): 6 Height (Inches): 0.00 Weight (Pounds): 153 Objective GEN: NAD HEENT: NCAT, MMM, EOMI Lungs: chest wall tender Heart: HR/BP stable, Abdomen: soft, non-tender, ND Extremities: no C/C/E Laboratory Tests Test 08/10/18 14:30 08/10/18 20:30 08/11/18 04:05 Sodium Level 124 MMOL/L (136-145) #L 137 MMOL/L (136-145) # Potassium Level 6.0 MMOL/L (3.5-5.1) *H 3.9 MMOL/L (3.5-5.1) Chloride Level 92 MMOL/L (98-107) L 102 MMOL/L (98-107) Carbon Dioxide Level 18 MMOL/L (21-32) L 24 MMOL/L (21-32) Anion Gap 15 mmol/L (5-15) 12 mmol/L (5-15) Blood Urea Nitrogen 66 mg/dL (7-18) H 68 mg/dL (7-18) H Creatinine 6.3 MG/DL (0.55-1.30) H 6.4 MG/DL (0.55-1.30) H Estimat Glomerular Filtration Rate 9.0 mL/min (>60) 8.8 mL/min (>60) Glucose Level 948 MG/DL (74-106) #*H 700 MG/DL (74-106) #*H 53 MG/DL (74-106) #L Lactic Acid Level 1.00 mmol/L (0.4-2.0) Calcium Level 8.5 MG/DL (8.5-10.1) 8.5 MG/DL (8.5-10.1) Beta-Hydroxybutyric Acid Pending Acetone Level Positive-small (NEGATIVE) White Blood Count 9.2 K/UL (4.8-10.8) Red Blood Count 2.82 M/UL (4.70-6.10) L Hemoglobin 8.7 G/DL (14.2-18.0) L Hematocrit 27.5 % (42.0-52.0) L Mean Corpuscular Volume 97 FL (80-99) Mean Corpuscular Hemoglobin 30.9 PG (27.0-31.0) Mean Corpuscular Hemoglobin Concent 31.7 G/DL (32.0-36.0) L Red Cell Distribution Width 16.6 % (11.6-14.8) H Platelet Count 259 K/UL (150-450) Mean Platelet Volume 5.5 FL (6.5-10.1) L Neutrophils (%) (Auto) 65.9 % (45.0-75.0) Lymphocytes (%) (Auto) 23.4 % (20.0-45.0) Monocytes (%) (Auto) 7.0 % (1.0-10.0) Eosinophils (%) (Auto) 3.0 % (0.0-3.0) Basophils (%) (Auto) 0.7 % (0.0-2.0) Phosphorus Level 3.9 MG/DL (2.5-4.9) Magnesium Level 2.6 MG/DL (1.8-2.4) H Total Bilirubin 0.3 MG/DL (0.2-1.0) Aspartate Amino Transf (AST/SGOT) 16 U/L (15-37) Alanine Aminotransferase (ALT/SGPT) 12 U/L (12-78) Alkaline Phosphatase 87 U/L (46-116) Total Protein 5.7 G/DL (6.4-8.2) L Albumin 2.0 G/DL (3.4-5.0) L Globulin 3.7 g/dL Albumin/Globulin Ratio 0.5 (1.0-2.7) L Current Medications Medications (Trade) Dose Ordered Sig/Dunia Route PRN Reason Start Time Stop Time Status Last Admin Dose Admin Dextrose (Dextrose 50%) 25 ml Q30M PRN IV Hypoglycemia 08/11/18 08:00 09/10/18 07:59 Dextrose (Dextrose 50%) 50 ml Q30M PRN IV Hypoglycemia 08/11/18 08:00 09/10/18 07:59 Duloxetine HCl (Cymbalta) 40 mg DAILY ORAL 08/11/18 09:00 09/02/18 08:59 08/11/18 08:05 Epoetin Jose (Epoetin Jose-EPBX(NON ESRD)) 10,000 unit WED-WED-WED SUBQ 08/10/18 21:00 09/02/18 20:59 08/10/18 21:26 Heparin Sodium (Porcine) (Heparin 5000 units/ml) 5,000 units EVERY 12 HOURS SUBQ 08/10/18 21:00 08/28/18 08:59 08/11/18 08:07 Insulin Aspart (NovoLOG) BEFORE MEALS AND HS SUBQ 08/11/18 11:30 09/10/18 11:29 Insulin Aspart (NovoLOG) 5 units NOVOTIAC SUBQ 08/11/18 08:00 09/10/18 07:59 Insulin Detemir (Levemir) 10 units BID SUBQ 08/11/18 09:00 09/10/18 08:59 Pantoprazole (Protonix) 40 mg EVERY 12 HOURS ORAL 08/10/18 21:00 08/31/18 20:59 08/11/18 08:06 Quetiapine Fumarate (SEROquel) 25 mg Q12HR ORAL 08/10/18 21:00 09/08/18 12:14 08/11/18 08:06 Quetiapine Fumarate (SEROquel) 25 mg Q6H PRN ORAL For Anxiety 08/10/18 19:00 08/31/18 18:59 Sevelamer Carbonate (Renvela) 800 mg THREE TIMES A DAY ORAL 08/11/18 09:00 08/28/18 12:59 08/11/18 08:05 Sodium Chloride 1,000 ml @ 75 mls/hr [id number] IV 08/10/18 19:00 09/09/18 08:29 08/11/18 08:05 Vitamin B Complex/ Vit C/Folic Acid (Nephrovite) 1 tab DAILY ORAL 08/11/18 09:00 08/29/18 08:59 08/11/18 08:05 William Caputo MD Aug 11, 2018 08:48
[2018-08-11] MEDS ORDERED: Levemir Flexpen SUBQ SCH (09:00)
[2018-08-11] MEDS ORDERED: Nephrovite tab (Rena-Vite) ORAL SCH (09:00)
[2018-08-11] MEDS: NovoLOG Insulin Flexpen SUBQ SCH ×5 (09:32→21:00)
--- NOTE | 2018-08-11 09:50 | Urology Progress Note ---
Assessment/Plan Assessment/Plan 1. Urinary retention. 2. Neurogenic bladder. 3. History of chronic suprapubic tube. 4. BPH history. 5. History of end-stage renal disease. 6. Hematuria. 7. Pyuria. 8. Proteinuria. 9. Renal cysts. monitor clinically keep sp tube, last exchanged 08/01 hand irrigated and do PRN s/p abx recheck urine cx at some point Subjective Allergies: Coded Allergies: CEFEPIME (Verified Allergy, Intermediate, Rash, 03/01/18) Tolerates Carbapenem Subjective all noted, new sp tube draining well, occasional leakage Objective Last 24 Hour Vital Signs Date Time Temp Pulse Resp B/P (MAP) Pulse Ox O2 Delivery O2 Flow Rate FiO2 08/11/18 09:00 Room Air 08/11/18 07:00 74 19 99/50 99 Room Air 08/11/18 05:00 76 19 101/49 99 Room Air 08/11/18 04:00 98.2 86 17 96/49 99 Room Air 08/11/18 04:00 Room Air 08/11/18 04:00 74 08/11/18 03:00 74 19 80/36 97 Room Air 08/11/18 02:00 74 19 80/36 97 Room Air 08/11/18 01:00 79 17 89/44 99 Room Air 08/11/18 00:00 Room Air 08/11/18 00:00 86 08/11/18 00:00 88 19 88/54 97 Room Air 08/10/18 23:00 98.1 93 19 100/56 97 Room Air 08/10/18 22:00 88 19 100/56 97 Room Air 08/10/18 21:00 88 19 109/51 97 Room Air 08/10/18 20:00 Room Air 08/10/18 20:00 96 08/10/18 20:00 96 18 121/63 98 Room Air 08/10/18 19:00 98.3 88 19 103/58 100 Room Air 08/10/18 16:00 98.8 97 19 159/80 99 Room Air 08/10/18 12:00 97.8 90 19 121/56 99 Room Air Intake and Output 08/10/18 08/11/18 19:00 07:00 Intake Total 600 ml 777.5 ml Output Total 1530 ml 930 ml Balance -930 ml -152.5 ml IV Total 600 ml 777.5 ml Output Urine Total 1530 ml 930 ml # Bowel Movements 1 3 Microbiology Date/Time Source Procedure Growth Status 07/29/18 05:29 Blood Blood Culture - Final NO GROWTH AFTER 5 DAYS Complete 07/29/18 00:30 Nasal Nares MRSA Culture - Final Staphylococcus Aureus - Mrsa Complete 07/29/18 05:15 Urine,Clean Catch Urine Culture - Final Gram Positive Cocci Complete 07/29/18 00:30 Rectum VRE Culture - Final Enterococcus Faecalis - Vre Enterococcus Faecium - Vre Complete Current Medications Medications (Trade) Dose Ordered Sig/Dunia Route PRN Reason Start Time Stop Time Status Last Admin Dose Admin Dextrose (Dextrose 50%) 25 ml Q30M PRN IV Hypoglycemia 08/11/18 08:00 09/10/18 07:59 Dextrose (Dextrose 50%) 50 ml Q30M PRN IV Hypoglycemia 08/11/18 08:00 09/10/18 07:59 Duloxetine HCl (Cymbalta) 40 mg DAILY ORAL 08/11/18 09:00 09/02/18 08:59 08/11/18 08:05 Epoetin Jose (Epoetin Jose-EPBX(NON ESRD)) 10,000 unit MON-WED-WED SUBQ 08/10/18 21:00 09/02/18 20:59 08/10/18 21:26 Heparin Sodium (Porcine) (Heparin 5000 units/ml) 5,000 units EVERY 12 HOURS SUBQ 08/10/18 21:00 08/28/18 08:59 08/11/18 08:07 Insulin Aspart (NovoLOG) BEFORE MEALS AND HS SUBQ 08/11/18 11:30 09/10/18 11:29 Insulin Aspart (NovoLOG) 5 units NOVOTIAC SUBQ 08/11/18 08:00 09/10/18 07:59 08/11/18 09:32 Insulin Detemir (Levemir) 10 units BID SUBQ 08/11/18 09:00 09/10/18 08:59 08/11/18 09:33 Pantoprazole (Protonix) 40 mg EVERY 12 HOURS ORAL 08/10/18 21:00 08/31/18 20:59 08/11/18 08:06 Quetiapine Fumarate (SEROquel) 25 mg Q12HR ORAL 08/10/18 21:00 09/08/18 12:14 08/11/18 08:06 Quetiapine Fumarate (SEROquel) 25 mg Q6H PRN ORAL For Anxiety 08/10/18 19:00 08/31/18 18:59 Sevelamer Carbonate (Renvela) 800 mg THREE TIMES A DAY ORAL 08/11/18 09:00 08/28/18 12:59 08/11/18 08:05 Sodium Chloride 1,000 ml @ 75 mls/hr [id number] IV 08/10/18 19:00 09/09/18 08:29 08/11/18 08:05 Vitamin B Complex/ Vit C/Folic Acid (Nephrovite) 1 tab DAILY ORAL 08/11/18 09:00 08/29/18 08:59 08/11/18 08:05 Laboratory Tests 08/10/18 14:30: Sodium Level 124#L, Potassium Level 6.0*H, Chloride Level 92L, Carbon Dioxide Level 18L, Anion Gap 15, Blood Urea Nitrogen 66H, Creatinine 6.3H, Estimat Glomerular Filtration Rate 9.0, Glucose Level 948#*H, Lactic Acid Level 1.00, Calcium Level 8.5, Beta-Hydroxybutyric Acid [Pending], Acetone Level Positive- small 08/10/18 20:30: Glucose Level 700#*H 08/11/18 04:05: Sodium Level 137#, Potassium Level 3.9, Chloride Level 102, Carbon Dioxide Level 24, Anion Gap 12, Blood Urea Nitrogen 68H, Creatinine 6.4H, Estimat Glomerular Filtration Rate 8.8, Glucose Level 53#L, Calcium Level 8.5, White Blood Count 9.2, Red Blood Count 2.82L, Hemoglobin 8.7L, Hematocrit 27.5L, Mean Corpuscular Volume 97, Mean Corpuscular Hemoglobin 30.9, Mean Corpuscular Hemoglobin Concent 31.7L, Red Cell Distribution Width 16.6H, Platelet Count 259 , Mean Platelet Volume 5.5L, Neutrophils (%) (Auto) 65.9, Lymphocytes (%) (Auto ) 23.4, Monocytes (%) (Auto) 7.0, Eosinophils (%) (Auto) 3.0, Basophils (%) ( Auto) 0.7, Phosphorus Level 3.9, Magnesium Level 2.6H, Total Bilirubin 0.3, Aspartate Amino Transf (AST/SGOT) 16, Alanine Aminotransferase (ALT/SGPT) 12, Alkaline Phosphatase 87, Total Protein 5.7L, Albumin 2.0L, Globulin 3.7, Albumin /Globulin Ratio 0.5L Height (Feet): 6 Height (Inches): 0.00 Weight (Pounds): 153 Objective exam stable Ye Rios MD Aug 11, 2018 09:50
--- NOTE | 2018-08-11 09:59 | NUR ---
NURSE NOTES: Dr Chambers here to see pt. No acute distress. Will continue to monitor.
--- NOTE | 2018-08-11 10:08 | Nephrology Progress Note ---
Assessment/Plan Problem List: (1) Acute on chronic renal failure (2) Bladder outlet obstruction (3) Anemia in chronic kidney disease (4) BPH (benign prostatic hypertrophy) (5) DKA (diabetic ketoacidoses) (6) Encephalopathy acute Assessment High Glucose now improved ESRD , in need of dialysis , refuses- presents with high K Encephalopathy , Metabolic Acidosis , Uremic and Diabetic Sever Anemia: Mixed etiology HTn, but presents with low BP Supra Pubic Cath, h/o UTI, BPH Psych disease CAD, elevated Troponin I s/p DKAs Plan in ICu for insulin drip Kayexelate for high K as needed Transfuse as needed Sugar control will do poorly in view of no dialysis plans DNR per orders Subjective ROS Limited/Unobtainable: No Constitutional: Reports: malaise, weakness Objective Objective Last 24 Hour Vital Signs Date Time Temp Pulse Resp B/P (MAP) Pulse Ox O2 Delivery O2 Flow Rate FiO2 08/11/18 09:00 Room Air 08/11/18 07:00 74 19 99/50 99 Room Air 08/11/18 05:00 76 19 101/49 99 Room Air 08/11/18 04:00 98.2 86 17 96/49 99 Room Air 08/11/18 04:00 Room Air 08/11/18 04:00 74 08/11/18 03:00 74 19 80/36 97 Room Air 08/11/18 02:00 74 19 80/36 97 Room Air 08/11/18 01:00 79 17 89/44 99 Room Air 08/11/18 00:00 Room Air 08/11/18 00:00 86 08/11/18 00:00 88 19 88/54 97 Room Air 08/10/18 23:00 98.1 93 19 100/56 97 Room Air 08/10/18 22:00 88 19 100/56 97 Room Air 08/10/18 21:00 88 19 109/51 97 Room Air 08/10/18 20:00 Room Air 08/10/18 20:00 96 08/10/18 20:00 96 18 121/63 98 Room Air 08/10/18 19:00 98.3 88 19 103/58 100 Room Air 08/10/18 16:00 98.8 97 19 159/80 99 Room Air 08/10/18 12:00 97.8 90 19 121/56 99 Room Air Intake and Output 08/10/18 08/11/18 19:00 07:00 Intake Total 600 ml 777.5 ml Output Total 1530 ml 930 ml Balance -930 ml -152.5 ml IV Total 600 ml 777.5 ml Output Urine Total 1530 ml 930 ml # Bowel Movements 1 3 Laboratory Tests 08/10/18 14:30: Sodium Level 124#L, Potassium Level 6.0*H, Chloride Level 92L, Carbon Dioxide Level 18L, Anion Gap 15, Blood Urea Nitrogen 66H, Creatinine 6.3H, Estimat Glomerular Filtration Rate 9.0, Glucose Level 948#*H, Lactic Acid Level 1.00, Calcium Level 8.5, Beta-Hydroxybutyric Acid [Pending], Acetone Level Positive- small 08/10/18 20:30: Glucose Level 700#*H 08/11/18 04:05: Sodium Level 137#, Potassium Level 3.9, Chloride Level 102, Carbon Dioxide Level 24, Anion Gap 12, Blood Urea Nitrogen 68H, Creatinine 6.4H, Estimat Glomerular Filtration Rate 8.8, Glucose Level 53#L, Calcium Level 8.5, White Blood Count 9.2, Red Blood Count 2.82L, Hemoglobin 8.7L, Hematocrit 27.5L, Mean Corpuscular Volume 97, Mean Corpuscular Hemoglobin 30.9, Mean Corpuscular Hemoglobin Concent 31.7L, Red Cell Distribution Width 16.6H, Platelet Count 259 , Mean Platelet Volume 5.5L, Neutrophils (%) (Auto) 65.9, Lymphocytes (%) (Auto ) 23.4, Monocytes (%) (Auto) 7.0, Eosinophils (%) (Auto) 3.0, Basophils (%) ( Auto) 0.7, Phosphorus Level 3.9, Magnesium Level 2.6H, Total Bilirubin 0.3, Aspartate Amino Transf (AST/SGOT) 16, Alanine Aminotransferase (ALT/SGPT) 12, Alkaline Phosphatase 87, Total Protein 5.7L, Albumin 2.0L, Globulin 3.7, Albumin /Globulin Ratio 0.5L Height (Feet): 6 Height (Inches): 0.00 Weight (Pounds): 153 General Appearance: no apparent distress, lethargic Cardiovascular: normal rate Respiratory/Chest: decreased breath sounds Abdomen: soft Objective no change Luis Chambers MD 31, 2019 10:08
--- NOTE | 2018-08-11 10:34 | NUR ---
NURSE NOTES: Dr Delgado here to see pt. Labs ordered for tomorrow. Will continue to monitor.
--- NOTE | 2018-08-11 10:55 | Pulmonolgy Critical Care Note ---
Critical Care - Asmt/Plan Problems: (1) DKA (diabetic ketoacidoses) (2) Encephalopathy acute (3) Acute on chronic renal failure (4) Suprapubic catheter (5) HTN (hypertension) (6) Major depressive disorder (7) BPH (benign prostatic hypertrophy) Respiratory: monitor respiratory rate, adjust FIO2, CXR Cardiac: continue pressors, continue to monitor HR/BP Renal: F/U I&O Infectious Disease: check cultures Gastrointestinal: continue feedings/current rate Endocrine: monitor blood sugar Hematologic: monitor H/H Neurologic: PRN Morphine Prophylaxis: Protonix Time Spent (Minutes): 40 Notes Reviewed: cardio Discussed with: nurses, consultants, field case managermanager green - Objective Last 24 Hour Vital Signs Date Time Temp Pulse Resp B/P (MAP) Pulse Ox O2 Delivery O2 Flow Rate FiO2 08/11/18 10:00 67 19 97/41 98 Room Air 08/11/18 09:00 Room Air 08/11/18 09:00 72 18 84/44 98 Room Air 08/11/18 08:00 98.0 75 18 81/33 100 Room Air 08/11/18 07:00 74 19 99/50 99 Room Air 08/11/18 05:00 76 19 101/49 99 Room Air 08/11/18 04:00 98.2 86 17 96/49 99 Room Air 08/11/18 04:00 Room Air 08/11/18 04:00 74 08/11/18 03:00 74 19 80/36 97 Room Air 08/11/18 02:00 74 19 80/36 97 Room Air 08/11/18 01:00 79 17 89/44 99 Room Air 08/11/18 00:00 Room Air 08/11/18 00:00 86 08/11/18 00:00 88 19 88/54 97 Room Air 08/10/18 23:00 98.1 93 19 100/56 97 Room Air 08/10/18 22:00 88 19 100/56 97 Room Air 08/10/18 21:00 88 19 109/51 97 Room Air 08/10/18 20:00 Room Air 08/10/18 20:00 96 08/10/18 20:00 96 18 121/63 98 Room Air 08/10/18 19:00 98.3 88 19 103/58 100 Room Air 08/10/18 16:00 98.8 97 19 159/80 99 Room Air 08/10/18 12:00 97.8 90 19 121/56 99 Room Air Status: awake Condition: critical, improving HEENT: atraumatic Lungs: clear Heart: HR/BP stable Abdomen: soft, active bowel sounds Extremities: no C/C/E, edema Decubiti: stage Accucheck: 140 Critical Care - Subjective ROS Limited/Unobtainable: Yes Interval Events: transferred to ICU because of very high BS and acidosis, was started on Insulin drip. Condition: critical FI02: 21 Sputum Amount: None I&O: Intake and Output 08/10/18 08/11/18 19:00 07:00 Intake Total 600 ml 777.5 ml Output Total 1530 ml 930 ml Balance -930 ml -152.5 ml IV Total 600 ml 777.5 ml Output Urine Total 1530 ml 930 ml # Bowel Movements 1 3 CXR: no change Labs: Laboratory Tests Test 08/10/18 14:30 08/10/18 20:30 08/11/18 04:05 Sodium Level 124 MMOL/L (136-145) #L 137 MMOL/L (136-145) # Potassium Level 6.0 MMOL/L (3.5-5.1) *H 3.9 MMOL/L (3.5-5.1) Chloride Level 92 MMOL/L (98-107) L 102 MMOL/L (98-107) Carbon Dioxide Level 18 MMOL/L (21-32) L 24 MMOL/L (21-32) Anion Gap 15 mmol/L (5-15) 12 mmol/L (5-15) Blood Urea Nitrogen 66 mg/dL (7-18) H 68 mg/dL (7-18) H Creatinine 6.3 MG/DL (0.55-1.30) H 6.4 MG/DL (0.55-1.30) H Estimat Glomerular Filtration Rate 9.0 mL/min (>60) 8.8 mL/min (>60) Glucose Level 948 MG/DL (74-106) #*H 700 MG/DL (74-106) #*H 53 MG/DL (74-106) #L Lactic Acid Level 1.00 mmol/L (0.4-2.0) Calcium Level 8.5 MG/DL (8.5-10.1) 8.5 MG/DL (8.5-10.1) Beta-Hydroxybutyric Acid Pending Acetone Level Positive-small (NEGATIVE) White Blood Count 9.2 K/UL (4.8-10.8) Red Blood Count 2.82 M/UL (4.70-6.10) L Hemoglobin 8.7 G/DL (14.2-18.0) L Hematocrit 27.5 % (42.0-52.0) L Mean Corpuscular Volume 97 FL (80-99) Mean Corpuscular Hemoglobin 30.9 PG (27.0-31.0) Mean Corpuscular Hemoglobin Concent 31.7 G/DL (32.0-36.0) L Red Cell Distribution Width 16.6 % (11.6-14.8) H Platelet Count 259 K/UL (150-450) Mean Platelet Volume 5.5 FL (6.5-10.1) L Neutrophils (%) (Auto) 65.9 % (45.0-75.0) Lymphocytes (%) (Auto) 23.4 % (20.0-45.0) Monocytes (%) (Auto) 7.0 % (1.0-10.0) Eosinophils (%) (Auto) 3.0 % (0.0-3.0) Basophils (%) (Auto) 0.7 % (0.0-2.0) Phosphorus Level 3.9 MG/DL (2.5-4.9) Magnesium Level 2.6 MG/DL (1.8-2.4) H Total Bilirubin 0.3 MG/DL (0.2-1.0) Aspartate Amino Transf (AST/SGOT) 16 U/L (15-37) Alanine Aminotransferase (ALT/SGPT) 12 U/L (12-78) Alkaline Phosphatase 87 U/L (46-116) Total Protein 5.7 G/DL (6.4-8.2) L Albumin 2.0 G/DL (3.4-5.0) L Globulin 3.7 g/dL Albumin/Globulin Ratio 0.5 (1.0-2.7) L Esdras Delgado MD Aug 11, 2018 10:55
--- NOTE | 2018-08-11 11:28 | NUR ---
RD ASSESSMENT & RECOMMENDATIONS SEE CARE ACTIVITY FOR COMPLETE ASSESSMENT DAILY ESTIMATED NEEDS: Needs based on Renal no HD, DM, 71.8kg 25-35 kcals/kg 4928-6412 total kcals .6-1 g protein/kg 43-72 g total protein Fluid per MD NUTRITION DIAGNOSIS: 1) Decreased sodium, potassium, and protein needs R/T renal dysfunction as evidenced by pt w/ CKD, w/ elev Creat (7.1->6.4), BUN (87->68), elev BNP, elev K on adm, now wnl, pt refusing HD. 2) Altered nutrition related lab values r/t DKA as evidenced by elev BG on adm(616-> 142 119 improved), Uglu 4+ upon adm, w/ recent txr to ICU for elev BG (>900), on insulin drip- now d/c'd. (UPDATED) CURRENT DIET: RENAL, CCHO MED PO DIET RECOMMENDATIONS: RENAL/ CCHO LOW + snacks in b/w meals ADDITIONAL RECOMMENDATIONS: * Obtain a recalibrated bed scale wt for accurate CBW * Monitor lytes daily, need for con't renal diet restrictions. * Wound eval for buttocks redness as per RN * 1 carb snacks TID- to prevent hypoglycemia * F/up w/ WC eval . .
--- NOTE | 2018-08-11 13:35 | NUR ---
HAND-OFF: Report given to Meera RIVERA.
--- NOTE | 2018-08-11 13:36 | NUR ---
NURSE NOTES: Report received from NICOLE Macario. Pt transferred [facility] Pt awake, talkative, A/O x3, no apparent distress, respirations unlabored, bed in lowest position, call light within reach.
--- NOTE | 2018-08-11 16:07 | NUR ---
HYPNOTHERAPISTBAR POINTER SI: DKA,HYPERKALEMIA T.98.0 HR 69 RR 17 B/P 98/39 RA 98% IS: IVF NS @ 75ML/HR HEPARIN SUBC INSULIN SUBC MED/SURG STATUS
[2018-08-11] MEDS: Levemir Flexpen SUBQ SCH (17:13)
--- NOTE | 2018-08-11 18:45 | Internal Med Progress Note ---
Subjective Date of Service: Aug 11, 2018 Physician Name MyahJose Attending Physician Christopher Rosado MD Current Medications Medications (Trade) Dose Ordered Sig/Dunia Route PRN Reason Start Time Stop Time Status Last Admin Dose Admin Dextrose (Dextrose 50%) 25 ml Q30M PRN IV Hypoglycemia 08/11/18 14:30 09/10/18 14:29 Dextrose (Dextrose 50%) 50 ml Q30M PRN IV Hypoglycemia 08/11/18 14:30 09/10/18 14:29 Duloxetine HCl (Cymbalta) 40 mg DAILY ORAL 08/12/18 09:00 09/02/18 08:59 Epoetin Jose (Epoetin Jose-EPBX(NON ESRD)) 10,000 unit WED-WED-WED SUBQ 08/12/18 21:00 09/02/18 20:59 Heparin Sodium (Porcine) (Heparin 5000 units/ml) 5,000 units EVERY 12 HOURS SUBQ 08/11/18 21:00 08/28/18 08:59 Insulin Aspart (NovoLOG) BEFORE MEALS AND HS SUBQ 08/11/18 16:30 09/10/18 11:29 08/11/18 17:14 Insulin Aspart (NovoLOG) 5 units NOVOTIAC SUBQ 08/11/18 16:50 09/10/18 07:59 08/11/18 17:12 Insulin Detemir (Levemir) 10 units BID SUBQ 08/11/18 18:00 09/10/18 08:59 08/11/18 17:13 Pantoprazole (Protonix) 40 mg BIAC ORAL 08/11/18 16:30 09/10/18 16:29 08/11/18 17:15 Quetiapine Fumarate (SEROquel) 25 mg Q12HR ORAL 08/11/18 21:00 09/08/18 12:14 Quetiapine Fumarate (SEROquel) 25 mg Q6H PRN ORAL For Anxiety 08/11/18 14:30 08/31/18 14:29 Sodium Chloride 1,000 ml @ 75 mls/hr [id number] IV 08/11/18 14:30 09/09/18 14:29 08/11/18 14:13 Vitamin B Complex/ Vit C/Folic Acid (Nephrovite) 1 tab DAILY ORAL 08/12/18 09:00 08/29/18 08:59 Allergies: Coded Allergies: CEFEPIME (Verified Allergy, Intermediate, Rash, 03/01/18) Tolerates Carbapenem ROS Limited/Unobtainable: No Constitutional: Reports: no symptoms HEENT: Reports: no symptoms Cardiovascular: Reports: no symptoms Respiratory: Reports: no symptoms Gastrointestinal/Abdominal: Reports: no symptoms Genitourinary: Reports: no symptoms Neurologic/Psychiatric: Reports: no symptoms Subjective 63 YO M with history of diabetes I admitted with hyperglycemia and DKA. Cover for Int Med-Dr Rosado. Await acceptance to [facility] Objective Last Vital Signs Date Time Temp Pulse Resp B/P (MAP) Pulse Ox O2 Delivery O2 Flow Rate FiO2 08/11/18 16:00 99.7 80 16 128/73 98 Room Air 08/10/18 04:00 21 Laboratory Tests Test 08/10/18 20:30 08/11/18 04:05 Glucose Level 700 MG/DL (74-106) #*H 53 MG/DL (74-106) #L White Blood Count 9.2 K/UL (4.8-10.8) Red Blood Count 2.82 M/UL (4.70-6.10) L Hemoglobin 8.7 G/DL (14.2-18.0) L Hematocrit 27.5 % (42.0-52.0) L Mean Corpuscular Volume 97 FL (80-99) Mean Corpuscular Hemoglobin 30.9 PG (27.0-31.0) Mean Corpuscular Hemoglobin Concent 31.7 G/DL (32.0-36.0) L Red Cell Distribution Width 16.6 % (11.6-14.8) H Platelet Count 259 K/UL (150-450) Mean Platelet Volume 5.5 FL (6.5-10.1) L Neutrophils (%) (Auto) 65.9 % (45.0-75.0) Lymphocytes (%) (Auto) 23.4 % (20.0-45.0) Monocytes (%) (Auto) 7.0 % (1.0-10.0) Eosinophils (%) (Auto) 3.0 % (0.0-3.0) Basophils (%) (Auto) 0.7 % (0.0-2.0) Sodium Level 137 MMOL/L (136-145) # Potassium Level 3.9 MMOL/L (3.5-5.1) Chloride Level 102 MMOL/L (98-107) Carbon Dioxide Level 24 MMOL/L (21-32) Anion Gap 12 mmol/L (5-15) Blood Urea Nitrogen 68 mg/dL (7-18) H Creatinine 6.4 MG/DL (0.55-1.30) H Estimat Glomerular Filtration Rate 8.8 mL/min (>60) Calcium Level 8.5 MG/DL (8.5-10.1) Phosphorus Level 3.9 MG/DL (2.5-4.9) Magnesium Level 2.6 MG/DL (1.8-2.4) H Total Bilirubin 0.3 MG/DL (0.2-1.0) Aspartate Amino Transf (AST/SGOT) 16 U/L (15-37) Alanine Aminotransferase (ALT/SGPT) 12 U/L (12-78) Alkaline Phosphatase 87 U/L (46-116) Total Protein 5.7 G/DL (6.4-8.2) L Albumin 2.0 G/DL (3.4-5.0) L Globulin 3.7 g/dL Albumin/Globulin Ratio 0.5 (1.0-2.7) L Intake and Output 08/10/18 08/11/18 19:00 07:00 Intake Total 600 ml 777.5 ml Output Total 1530 ml 930 ml Balance -930 ml -152.5 ml IV Total 600 ml 777.5 ml Output Urine Total 1530 ml 930 ml # Bowel Movements 1 3 Objective GENERAL: The patient is awake and responsive but confused, in no acute distress. HEAD AND NECK: Pupils are equal and reactive to light. Extraocular movements are intact in the right eye. Left eye blindness, Neck was supple. No JVD. LUNGS: fair air entry. No wheezing or rales. HEART: S1 and S2. Distant heart sounds. No Murmur or gallops. ABDOMEN: Soft, nontender, and nontender. Suprapubic catheter was noted. EXTREMITIES: No cyanosis or clubbing. Bilateral lower extremity trace LE's edema. NEUROLOGIC: Cranial nerves II through XII grossly intact. Motor is 5/5 in all extremities. Gait was not assessed due to the patient's status. Assessment/Plan Assessment/Plan ASSESSMENT: 1. DKA. 2. Hypertension. 3. Dyslipidemia. 4. Diabetes type 1 with prior history of diabetic ketoacidosis. 5. Diabetic retinopathy of the left eye blindness. 6. End-stage renal disease secondary to diabetic nephrosclerosis. 7. Coronary artery disease with prior history of myocardial infarction. 8. 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 9. 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 10. Secondary hyperparathyroidism with vitamin D deficiency. 11. Anemia of chronic kidney disease. 12. Metabolic acidosis. 13. Depression with prior suicide attempt. 14. Acute encephalopathy due to toxic metabolic encephalopathy due to DKA. 15. Hyperkalemia PLAN: 1. Med/surg 2. Code status is DNR/DNI as per POL in the chart. 3. Resume fci medications. 4. Follow up with Labs and culture. 5. Broad spectrum antibiotic with Meropenem. 6. DVT prophylaxis, heparin subcutaneous. 7. We will follow up with Dr. Delgado with critical care , Dr. Chambers from Nephrology and Dr. Rich Wick from Infectious Disease. 8. We will follow up with the cultures and laboratory in the morning. 9. Better control with Levemir and Insulin sliding scale per endocrinology 10. Discharge planning: SNF when bed available. Unable to return to [facility] 11. Kayexalate for hyperkalemia Jose Glasgow MD Aug 11, 2018 18:45
--- NOTE | 2018-08-11 19:23 | NUR ---
HAND-OFF: Report given to [place]. Pt stable.
--- NOTE | 2018-08-11 19:30 | NUR ---
NURSE NOTES: Received patient in no apparent distress. A&OX3. No hyper/hypoglycemic symptom noted. IV site patent and intact. Supra pubic cath draining well by gravity, yellow urine noted. Bed in lowest position. Call light within reach. Will continue to monitor.
--- NOTE | 2018-08-11 20:44 | General Progress Note ---
Assessment/Plan Problem List: (1) encephalopathy due to metabolic do (2) Major depressive disorder ICD Codes: F32.9 - Major depressive disorder, single episode, unspecified SNOMED: 706951988 Assessment/Plan cont Cymbalta 40mg qam seroquel 25mg q6hr prn agitation seroquel 25mg po bid provided ro/st Subjective Neurologic/Psychiatric: Reports: anxiety, depressed, emotional problems Allergies: Coded Allergies: CEFEPIME (Verified Allergy, Intermediate, Rash, 03/01/18) Tolerates Carbapenem Subjective the pt is irritable and angry Objective Last 24 Hour Vital Signs Date Time Temp Pulse Resp B/P (MAP) Pulse Ox O2 Delivery O2 Flow Rate FiO2 08/11/18 16:00 99.7 80 16 128/73 98 Room Air 08/11/18 13:00 80 25 94/40 100 Room Air 08/11/18 12:00 98.0 69 17 98/39 100 Room Air 08/11/18 11:00 69 16 100/46 98 Room Air 08/11/18 10:00 67 19 97/41 98 Room Air 08/11/18 09:00 Room Air 08/11/18 09:00 72 18 84/44 98 Room Air 08/11/18 08:00 98.0 75 18 81/33 100 Room Air 08/11/18 07:00 74 19 99/50 99 Room Air 08/11/18 05:00 76 19 101/49 99 Room Air 08/11/18 04:00 98.2 86 17 96/49 99 Room Air 08/11/18 04:00 Room Air 08/11/18 04:00 74 08/11/18 03:00 74 19 80/36 97 Room Air 08/11/18 02:00 74 19 80/36 97 Room Air 08/11/18 01:00 79 17 89/44 99 Room Air 08/11/18 00:00 Room Air 08/11/18 00:00 86 08/11/18 00:00 88 19 88/54 97 Room Air 08/10/18 23:00 98.1 93 19 100/56 97 Room Air 08/10/18 22:00 88 19 100/56 97 Room Air 08/10/18 21:00 88 19 109/51 97 Room Air Intake and Output 08/10/18 08/11/18 19:00 07:00 Intake Total 600 ml 777.5 ml Output Total 1530 ml 930 ml Balance -930 ml -152.5 ml IV Total 600 ml 777.5 ml Output Urine Total 1530 ml 930 ml # Bowel Movements 1 3 Laboratory Tests 08/11/18 04:05: White Blood Count 9.2, Red Blood Count 2.82L, Hemoglobin 8.7L, Hematocrit 27.5L , Mean Corpuscular Volume 97, Mean Corpuscular Hemoglobin 30.9, Mean Corpuscular Hemoglobin Concent 31.7L, Red Cell Distribution Width 16.6H, Platelet Count 259, Mean Platelet Volume 5.5L, Neutrophils (%) (Auto) 65.9, Lymphocytes (%) (Auto) 23.4, Monocytes (%) (Auto) 7.0, Eosinophils (%) (Auto) 3.0, Basophils (%) (Auto) 0.7, Sodium Level 137#, Potassium Level 3.9, Chloride Level 102, Carbon Dioxide Level 24, Anion Gap 12, Blood Urea Nitrogen 68H, Creatinine 6.4H, Estimat Glomerular Filtration Rate 8.8, Glucose Level 53#L, Calcium Level 8.5, Phosphorus Level 3.9, Magnesium Level 2.6H, Total Bilirubin 0.3, Aspartate Amino Transf (AST/SGOT) 16, Alanine Aminotransferase (ALT/SGPT) 12, Alkaline Phosphatase 87, Total Protein 5.7L, Albumin 2.0L, Globulin 3.7, Albumin/Globulin Ratio 0.5L Height (Feet): 6 Height (Inches): 0.00 Weight (Pounds): 153 General Appearance: no apparent distress, alert, confused Fatmata Lu MD Aug 11, 2018 20:44
[2018-08-12] VITALS: BP 101/50
[2018-08-12 04:00] VITALS: BP 127/62
[2018-08-12] MEDS: NovoLOG Insulin Flexpen SUBQ SCH ×7 (06:30→21:00)
--- NOTE | 2018-08-12 07:05 | NUR ---
HAND-OFF: Report given to Rima RIVERA.
[2018-08-12 07:39] LABS: BASOPHILS % (AUTO) 0.6 % (0.0-2.0); EOSINOPHILS % (AUTO) 5.7 % (0.0-3.0); HEMATOCRIT 24.8 % (42.0-52.0); HEMOGLOBIN 8.1 G/DL (14.2-18.0); LYMPHOCYTES % (AUTO) 26.3 % (20.0-45.0); MEAN CORPUSCULAR VOLUME 96 FL (80-99); MONOCYTES % (AUTO) 7.3 % (1.0-10.0); PLATELET COUNT 268 K/UL (150-450); RED BLOOD COUNT 2.58 M/UL (4.70-6.10); RED CELL DISTRIBUTION WIDTH 17.3 % (11.6-14.8); WHITE BLOOD COUNT 7.1 K/UL (4.8-10.8)
[2018-08-12 07:58] LABS: ALANINE AMINOTRANSFERASE 14 U/L (12-78); ALBUMIN 2.1 G/DL (3.4-5.0); ALBUMIN/GLOBULIN RATIO 0.6 (1.0-2.7); ALKALINE PHOSPHATASE 74 U/L (46-116); ANION GAP 14 mmol/L (5-15); ASPARTATE AMINO TRANSFERASE 12 U/L (15-37); BILIRUBIN,TOTAL 0.5 MG/DL (0.2-1.0); BLOOD UREA NITROGEN 73 mg/dL (7-18); CALCIUM 8.3 MG/DL (8.5-10.1); CARBON DIOXIDE 21 MMOL/L (21-32); CHLORIDE 103 MMOL/L (98-107); CREATININE 6.7 MG/DL (0.55-1.30); PHOSPHORUS 6.1 MG/DL (2.5-4.9); SODIUM 138 MMOL/L (136-145)
[2018-08-12 08:00] VITALS: BP 117/66
--- NOTE | 2018-08-12 08:12 | Urology Progress Note ---
Assessment/Plan Assessment/Plan 1. Urinary retention. 2. Neurogenic bladder. 3. History of chronic suprapubic tube. 4. BPH history. 5. History of end-stage renal disease. 6. Hematuria. 7. Pyuria. 8. Proteinuria. 9. Renal cysts. monitor clinically keep sp tube, last exchanged 08/01 hand irrigated and do PRN cath secured to pt's leg s/p abx recheck urine cx at some point Subjective Allergies: Coded Allergies: CEFEPIME (Verified Allergy, Intermediate, Rash, 03/01/18) Tolerates Carbapenem Subjective all noted, new sp tube draining well, occasional leakage Objective Last 24 Hour Vital Signs Date Time Temp Pulse Resp B/P (MAP) Pulse Ox O2 Delivery O2 Flow Rate FiO2 08/12/18 04:00 98.0 70 19 127/62 100 Room Air 08/12/18 00:00 98.2 72 19 101/50 99 Room Air 08/11/18 21:00 Room Air 08/11/18 20:00 99.0 81 19 111/65 98 Room Air 08/11/18 16:00 99.7 80 16 128/73 98 Room Air 08/11/18 13:00 80 25 94/40 100 Room Air 08/11/18 12:00 98.0 69 17 98/39 100 Room Air 08/11/18 11:00 69 16 100/46 98 Room Air 08/11/18 10:00 67 19 97/41 98 Room Air 08/11/18 09:00 Room Air 08/11/18 09:00 72 18 84/44 98 Room Air Intake and Output 08/11/18 08/12/18 18:59 06:59 Intake Total 301 ml 900 ml Output Total 650 ml 1250 ml Balance -349 ml -350 ml IV Total 301 ml 900 ml Output Urine Total 650 ml 1250 ml # Bowel Movements 1 Microbiology Date/Time Source Procedure Growth Status 07/29/18 05:29 Blood Blood Culture - Final NO GROWTH AFTER 5 DAYS Complete 07/29/18 00:30 Nasal Nares MRSA Culture - Final Staphylococcus Aureus - Mrsa Complete 07/29/18 05:15 Urine,Clean Catch Urine Culture - Final Gram Positive Cocci Complete 07/29/18 00:30 Rectum VRE Culture - Final Enterococcus Faecalis - Vre Enterococcus Faecium - Vre Complete Current Medications Medications (Trade) Dose Ordered Sig/Dunia Route PRN Reason Start Time Stop Time Status Last Admin Dose Admin Dextrose (Dextrose 50%) 25 ml Q30M PRN IV Hypoglycemia 08/11/18 14:30 09/10/18 14:29 Dextrose (Dextrose 50%) 50 ml Q30M PRN IV Hypoglycemia 08/11/18 14:30 09/10/18 14:29 Duloxetine HCl (Cymbalta) 40 mg DAILY ORAL 08/12/18 09:00 09/02/18 08:59 Epoetin Jose (Epoetin Jose-EPBX(NON ESRD)) 10,000 unit WED-WED-WED SUBQ 08/12/18 21:00 09/02/18 20:59 Heparin Sodium (Porcine) (Heparin 5000 units/ml) 5,000 units EVERY 12 HOURS SUBQ 08/11/18 21:00 08/28/18 08:59 08/11/18 20:48 Insulin Aspart (NovoLOG) BEFORE MEALS AND HS SUBQ 08/11/18 16:30 09/10/18 11:29 08/11/18 17:14 Insulin Aspart (NovoLOG) 5 units NOVOTIAC SUBQ 08/11/18 16:50 09/10/18 07:59 08/11/18 17:12 Insulin Detemir (Levemir) 10 units BID SUBQ 08/11/18 18:00 09/10/18 08:59 08/11/18 17:13 Pantoprazole (Protonix) 40 mg BIAC ORAL 08/11/18 16:30 09/10/18 16:29 08/12/18 05:57 Quetiapine Fumarate (SEROquel) 25 mg Q12HR ORAL 08/11/18 21:00 09/08/18 12:14 08/11/18 20:48 Quetiapine Fumarate (SEROquel) 25 mg Q6H PRN ORAL For Anxiety 08/11/18 14:30 08/31/18 14:29 Sodium Chloride 1,000 ml @ 75 mls/hr [id number] IV 08/11/18 14:30 09/09/18 14:29 08/12/18 04:11 Vitamin B Complex/ Vit C/Folic Acid (Nephrovite) 1 tab DAILY ORAL 08/12/18 09:00 08/29/18 08:59 Laboratory Tests 08/12/18 06:58: White Blood Count 7.1, Red Blood Count 2.58L, Hemoglobin 8.1L, Hematocrit 24.8L , Mean Corpuscular Volume 96, Mean Corpuscular Hemoglobin 31.3H, Mean Corpuscular Hemoglobin Concent 32.6, Red Cell Distribution Width 17.3H, Platelet Count 268, Mean Platelet Volume 6.0L, Neutrophils (%) (Auto) 60.0, Lymphocytes (%) (Auto) 26.3, Monocytes (%) (Auto) 7.3, Eosinophils (%) (Auto) 5.7H, Basophils (%) (Auto) 0.6, Erythrocyte Sedimentation Rate [Pending], Sodium Level 138, Potassium Level 4.0, Chloride Level 103, Carbon Dioxide Level 21, Anion Gap 14, Blood Urea Nitrogen 73H, Creatinine 6.7H, Estimat Glomerular Filtration Rate 8.4, Glucose Level 83, Calcium Level 8.3L, Phosphorus Level 6.1H , Magnesium Level 2.3, Total Bilirubin 0.5, Aspartate Amino Transf (AST/SGOT) 12L, Alanine Aminotransferase (ALT/SGPT) 14, Alkaline Phosphatase 74, C- Reactive Protein, Quantitative 0.7, Total Protein 5.5L, Albumin 2.1L, Globulin 3.4, Albumin/Globulin Ratio 0.6L Height (Feet): 6 Height (Inches): 0.00 Weight (Pounds): 150 Objective exam stable Ye Rios MD Aug 12, 2018 08:12
[2018-08-12] MEDS: Heparin 5000 units/ml inj SUBQ SCH ×2 (08:14→21:13)
[2018-08-12] MEDS: Nephrovite tab (Rena-Vite) ORAL SCH (08:19)
[2018-08-12] MEDS: Levemir Flexpen SUBQ SCH ×2 (08:39→17:42)
[2018-08-12 12:00] VITALS: BP 115/65
--- NOTE | 2018-08-12 12:32 | Infectious Diseases Prog Note ---
Assessment/Plan Assessment/Plan Severe sepsis -likely 2ry to UTI- SP, s/p rx -u.a wbc tntc, nit neg, luek +3; ucx <10k GPC -Bcx Neg -CXR: Suspected atelectasis or scarring right Afebrile Leukocytosis, SP DKA RIVKA, improving hx of recent sepsis 2ry to UTI and bacteremia 07/08/18 UCx - P.a. MDR and Providencia 07/08/18 BCx ESBL Proteus and K. pneumo Dm2 HLD MDD with suicidal attempts in the past w/ resultant chronic encephalopathy CAD/UT BPH anemia asthma colonic polyps ESRD s/p renal and pancreas tx ~10 yrs ago now CKD 4 ConS bacteremia/line infection urinary retention s/p suprapubic catheter 09/2017 recurrent hematuria multiple hospital admissions recurrent UTI DNR Plan: - Continue to monitor off abx as clinically stable -08/02 SP Meropenem d# 5 07/29 SP one dose Amikacin -07/22 SP Meropenem, #14 - f/u cx -Monitor CBC/CMP, temperatures Subjective Allergies: Coded Allergies: CEFEPIME (Verified Allergy, Intermediate, Rash, 03/01/18) Tolerates Carbapenem Subjective Transferred back from ICU Afebrile No leukocytosis Objective Vital Signs Last 24 Hour Vital Signs Date Time Temp Pulse Resp B/P (MAP) Pulse Ox O2 Delivery O2 Flow Rate FiO2 08/12/18 09:00 Room Air 08/12/18 08:00 98.4 75 19 117/66 100 Room Air 08/12/18 04:00 98.0 70 19 127/62 100 Room Air 08/12/18 00:00 98.2 72 19 101/50 99 Room Air 08/11/18 21:00 Room Air 08/11/18 20:00 99.0 81 19 111/65 98 Room Air 08/11/18 16:00 99.7 80 16 128/73 98 Room Air 08/11/18 13:00 80 25 94/40 100 Room Air Height (Feet): 6 Height (Inches): 0.00 Weight (Pounds): 150 Objective GEN: Comfortable HEENT: NCAT, MMM, EOMI Lungs: chest wall tender Heart: HR/BP stable, Abdomen: soft, non-tender, ND Extremities: no C/C/E Laboratory Tests Test 08/12/18 06:58 White Blood Count 7.1 K/UL (4.8-10.8) Red Blood Count 2.58 M/UL (4.70-6.10) L Hemoglobin 8.1 G/DL (14.2-18.0) L Hematocrit 24.8 % (42.0-52.0) L Mean Corpuscular Volume 96 FL (80-99) Mean Corpuscular Hemoglobin 31.3 PG (27.0-31.0) H Mean Corpuscular Hemoglobin Concent 32.6 G/DL (32.0-36.0) Red Cell Distribution Width 17.3 % (11.6-14.8) H Platelet Count 268 K/UL (150-450) Mean Platelet Volume 6.0 FL (6.5-10.1) L Neutrophils (%) (Auto) 60.0 % (45.0-75.0) Lymphocytes (%) (Auto) 26.3 % (20.0-45.0) Monocytes (%) (Auto) 7.3 % (1.0-10.0) Eosinophils (%) (Auto) 5.7 % (0.0-3.0) H Basophils (%) (Auto) 0.6 % (0.0-2.0) Erythrocyte Sedimentation Rate 65 MM/HR (0-20) H Sodium Level 138 MMOL/L (136-145) Potassium Level 4.0 MMOL/L (3.5-5.1) Chloride Level 103 MMOL/L (98-107) Carbon Dioxide Level 21 MMOL/L (21-32) Anion Gap 14 mmol/L (5-15) Blood Urea Nitrogen 73 mg/dL (7-18) H Creatinine 6.7 MG/DL (0.55-1.30) H Estimat Glomerular Filtration Rate 8.4 mL/min (>60) Glucose Level 83 MG/DL (74-106) Calcium Level 8.3 MG/DL (8.5-10.1) L Phosphorus Level 6.1 MG/DL (2.5-4.9) H Magnesium Level 2.3 MG/DL (1.8-2.4) Total Bilirubin 0.5 MG/DL (0.2-1.0) Aspartate Amino Transf (AST/SGOT) 12 U/L (15-37) L Alanine Aminotransferase (ALT/SGPT) 14 U/L (12-78) Alkaline Phosphatase 74 U/L (46-116) C-Reactive Protein, Quantitative 0.7 mg/dL (0.00-0.90) Total Protein 5.5 G/DL (6.4-8.2) L Albumin 2.1 G/DL (3.4-5.0) L Globulin 3.4 g/dL Albumin/Globulin Ratio 0.6 (1.0-2.7) L Current Medications Medications (Trade) Dose Ordered Sig/Dunia Route PRN Reason Start Time Stop Time Status Last Admin Dose Admin Dextrose (Dextrose 50%) 25 ml Q30M PRN IV Hypoglycemia 08/11/18 14:30 09/10/18 14:29 Dextrose (Dextrose 50%) 50 ml Q30M PRN IV Hypoglycemia 08/11/18 14:30 09/10/18 14:29 Duloxetine HCl (Cymbalta) 40 mg DAILY ORAL 08/12/18 09:00 09/02/18 08:59 08/12/18 08:19 Epoetin Jose (Epoetin Jose-EPBX(NON ESRD)) 10,000 unit WED-WED-WED SUBQ 08/12/18 21:00 09/02/18 20:59 Heparin Sodium (Porcine) (Heparin 5000 units/ml) 5,000 units EVERY 12 HOURS SUBQ 08/11/18 21:00 08/28/18 08:59 08/12/18 08:14 Insulin Aspart (NovoLOG) BEFORE MEALS AND HS SUBQ 08/11/18 16:30 09/10/18 11:29 08/11/18 17:14 Insulin Aspart (NovoLOG) 5 units NOVOTIAC SUBQ 08/11/18 16:50 09/10/18 07:59 08/11/18 17:12 Insulin Detemir (Levemir) 10 units BID SUBQ 08/11/18 18:00 09/10/18 08:59 08/12/18 08:39 Pantoprazole (Protonix) 40 mg BIAC ORAL 08/11/18 16:30 09/10/18 16:29 08/12/18 05:57 Quetiapine Fumarate (SEROquel) 25 mg Q12HR ORAL 08/11/18 21:00 09/08/18 12:14 08/12/18 08:12 Quetiapine Fumarate (SEROquel) 25 mg Q6H PRN ORAL For Anxiety 08/11/18 14:30 08/31/18 14:29 Sodium Chloride 1,000 ml @ 75 mls/hr [id number] IV 08/11/18 14:30 09/09/18 14:29 08/12/18 04:11 Vitamin B Complex/ Vit C/Folic Acid (Nephrovite) 1 tab DAILY ORAL 08/12/18 09:00 08/29/18 08:59 08/12/18 08:19 William Caputo MD Aug 12, 2018 12:32
[2018-08-12] MEDS ORDERED: NovoLOG Insulin Flexpen SUBQ ONE (14:00)
--- NOTE | 2018-08-12 14:36 | Pulmonology Progress Note ---
Assessment/Plan Problems: (1) Encephalopathy acute (2) DKA (diabetic ketoacidoses) (3) Anemia in chronic kidney disease (4) CKD (chronic kidney disease), stage III (5) Major depressive disorder (6) Bladder outlet obstruction (7) Suprapubic catheter Assessment/Plan out of icu again creatinine lower doing better no new complains Bs better controlled pt refusing HD check electrolytes continue DNR dvt prophylaxis All medications and treatment were reviewed.med recon done, dc to halfway today Subjective ROS Limited/Unobtainable: No Constitutional: Reports: no symptoms HEENT: Repors: no symptoms Respiratory: Reports: no symptoms Allergies: Coded Allergies: CEFEPIME (Verified Allergy, Intermediate, Rash, 03/01/18) Tolerates Carbapenem Objective Last 24 Hour Vital Signs Date Time Temp Pulse Resp B/P (MAP) Pulse Ox O2 Delivery O2 Flow Rate FiO2 08/12/18 12:00 98.0 78 19 115/65 100 Room Air 08/12/18 09:00 Room Air 08/12/18 08:00 98.4 75 19 117/66 100 Room Air 08/12/18 04:00 98.0 70 19 127/62 100 Room Air 08/12/18 00:00 98.2 72 19 101/50 99 Room Air 08/11/18 21:00 Room Air 08/11/18 20:00 99.0 81 19 111/65 98 Room Air 08/11/18 16:00 99.7 80 16 128/73 98 Room Air Intake and Output 08/11/18 08/12/18 19:00 07:00 Intake Total 300 ml 825 ml Output Total 650 ml 1250 ml Balance -350 ml -425 ml IV Total 300 ml 825 ml Output Urine Total 650 ml 1250 ml # Bowel Movements 1 Objective General Appearance: WD/WN HEENT: normocephalic, atraumatic, anicteric Respiratory/Chest: chest wall non-tender, lungs clear Breasts: no masses Cardiovascular: normal peripheral pulses, normal rate Abdomen: normal bowel sounds, soft, non tender Extremities: no cyanosis Skin: no rash Neurologic/Psychiatric: 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 II-XII grossly normal Lymphatic: no neck adenopathy Laboratory Tests 08/12/18 06:58: White Blood Count 7.1, Red Blood Count 2.58L, Hemoglobin 8.1L, Hematocrit 24.8L , Mean Corpuscular Volume 96, Mean Corpuscular Hemoglobin 31.3H, Mean Corpuscular Hemoglobin Concent 32.6, Red Cell Distribution Width 17.3H, Platelet Count 268, Mean Platelet Volume 6.0L, Neutrophils (%) (Auto) 60.0, Lymphocytes (%) (Auto) 26.3, Monocytes (%) (Auto) 7.3, Eosinophils (%) (Auto) 5.7H, Basophils (%) (Auto) 0.6, Erythrocyte Sedimentation Rate 65H, Sodium Level 138, Potassium Level 4.0, Chloride Level 103, Carbon Dioxide Level 21, Anion Gap 14, Blood Urea Nitrogen 73H, Creatinine 6.7H, Estimat Glomerular Filtration Rate 8.4, Glucose Level 83, Calcium Level 8.3L, Phosphorus Level 6.1H , Magnesium Level 2.3, Total Bilirubin 0.5, Aspartate Amino Transf (AST/SGOT) 12L, Alanine Aminotransferase (ALT/SGPT) 14, Alkaline Phosphatase 74, C- Reactive Protein, Quantitative 0.7, Total Protein 5.5L, Albumin 2.1L, Globulin 3.4, Albumin/Globulin Ratio 0.6L Current Medications Medications (Trade) Dose Ordered Sig/Dunia Route PRN Reason Start Time Stop Time Status Last Admin Dose Admin Dextrose (Dextrose 50%) 25 ml Q30M PRN IV Hypoglycemia 08/11/18 14:30 09/10/18 14:29 Dextrose (Dextrose 50%) 50 ml Q30M PRN IV Hypoglycemia 08/11/18 14:30 09/10/18 14:29 Duloxetine HCl (Cymbalta) 40 mg DAILY ORAL 08/12/18 09:00 09/02/18 08:59 08/12/18 08:19 Epoetin Jose (Epoetin Jose-EPBX(NON ESRD)) 10,000 unit MON-WED-WED SUBQ 08/12/18 21:00 09/02/18 20:59 Heparin Sodium (Porcine) (Heparin 5000 units/ml) 5,000 units EVERY 12 HOURS SUBQ 08/11/18 21:00 08/28/18 08:59 08/12/18 08:14 Insulin Aspart (NovoLOG) BEFORE MEALS AND HS SUBQ 08/11/18 16:30 09/10/18 11:29 08/12/18 13:33 Insulin Aspart (NovoLOG) 5 units NOVOTIAC SUBQ 08/11/18 16:50 09/10/18 07:59 08/12/18 13:34 Insulin Detemir (Levemir) 10 units BID SUBQ 08/11/18 18:00 09/10/18 08:59 08/12/18 08:39 Pantoprazole (Protonix) 40 mg BIAC ORAL 08/11/18 16:30 09/10/18 16:29 08/12/18 05:57 Quetiapine Fumarate (SEROquel) 25 mg Q12HR ORAL 08/11/18 21:00 09/08/18 12:14 08/12/18 08:12 Quetiapine Fumarate (SEROquel) 25 mg Q6H PRN ORAL For Anxiety 08/11/18 14:30 08/31/18 14:29 Sodium Chloride 1,000 ml @ 75 mls/hr [id number] IV 08/11/18 14:30 09/09/18 14:29 08/12/18 04:11 Vitamin B Complex/ Vit C/Folic Acid (Nephrovite) 1 tab DAILY ORAL 08/12/18 09:00 08/29/18 08:59 08/12/18 08:19 Esdras Delgado MD Aug 12, 2018 14:36
[2018-08-12 16:00] VITALS: BP 107/53
--- NOTE | 2018-08-12 17:09 | Internal Med Progress Note ---
Subjective Physician Name Christopher Rosado Attending Physician Christopher Rosado MD Current Medications Medications (Trade) Dose Ordered Sig/Dunia Route PRN Reason Start Time Stop Time Status Last Admin Dose Admin Dextrose (Dextrose 50%) 25 ml Q30M PRN IV Hypoglycemia 08/11/18 14:30 09/10/18 14:29 Dextrose (Dextrose 50%) 50 ml Q30M PRN IV Hypoglycemia 08/11/18 14:30 09/10/18 14:29 Duloxetine HCl (Cymbalta) 40 mg DAILY ORAL 08/12/18 09:00 09/02/18 08:59 08/12/18 08:19 Epoetin Jose (Epoetin Jose-EPBX(NON ESRD)) 10,000 unit WED-WED-WED SUBQ 08/12/18 21:00 09/02/18 20:59 Heparin Sodium (Porcine) (Heparin 5000 units/ml) 5,000 units EVERY 12 HOURS SUBQ 08/11/18 21:00 08/28/18 08:59 08/12/18 08:14 Insulin Aspart (NovoLOG) BEFORE MEALS AND HS SUBQ 08/11/18 16:30 09/10/18 11:29 08/12/18 13:33 Insulin Aspart (NovoLOG) 5 units NOVOTIAC SUBQ 08/11/18 16:50 09/10/18 07:59 08/12/18 13:34 Insulin Detemir (Levemir) 10 units BID SUBQ 08/11/18 18:00 09/10/18 08:59 08/12/18 08:39 Pantoprazole (Protonix) 40 mg BIAC ORAL 08/11/18 16:30 09/10/18 16:29 08/12/18 05:57 Quetiapine Fumarate (SEROquel) 25 mg Q12HR ORAL 08/11/18 21:00 09/08/18 12:14 08/12/18 08:12 Quetiapine Fumarate (SEROquel) 25 mg Q6H PRN ORAL For Anxiety 08/11/18 14:30 08/31/18 14:29 Sodium Chloride 1,000 ml @ 75 mls/hr [id number] IV 08/11/18 14:30 09/09/18 14:29 08/12/18 04:11 Vitamin B Complex/ Vit C/Folic Acid (Nephrovite) tab DAILY ORAL 08/12/18 09:00 08/29/18 08:59 08/12/18 08:19 Allergies: Coded Allergies: CEFEPIME (Verified Allergy, Intermediate, Rash, 03/01/18) Tolerates Carbapenem Subjective awake, alert, responsive, NAD, sitting up at bedside. Objective Last Vital Signs Date Time Temp Pulse Resp B/P (MAP) Pulse Ox O2 Delivery O2 Flow Rate FiO2 08/12/18 16:00 98.2 75 20 107/53 99 Room Air 08/10/18 04:00 21 Laboratory Tests Test 08/12/18 06:58 White Blood Count 7.1 K/UL (4.8-10.8) Red Blood Count 2.58 M/UL (4.70-6.10) L Hemoglobin 8.1 G/DL (14.2-18.0) L Hematocrit 24.8 % (42.0-52.0) L Mean Corpuscular Volume 96 FL (80-99) Mean Corpuscular Hemoglobin 31.3 PG (27.0-31.0) H Mean Corpuscular Hemoglobin Concent 32.6 G/DL (32.0-36.0) Red Cell Distribution Width 17.3 % (11.6-14.8) H Platelet Count 268 K/UL (150-450) Mean Platelet Volume 6.0 FL (6.5-10.1) L Neutrophils (%) (Auto) 60.0 % (45.0-75.0) Lymphocytes (%) (Auto) 26.3 % (20.0-45.0) Monocytes (%) (Auto) 7.3 % (1.0-10.0) Eosinophils (%) (Auto) 5.7 % (0.0-3.0) H Basophils (%) (Auto) 0.6 % (0.0-2.0) Erythrocyte Sedimentation Rate 65 MM/HR (0-20) H Sodium Level 138 MMOL/L (136-145) Potassium Level 4.0 MMOL/L (3.5-5.1) Chloride Level 103 MMOL/L (98-107) Carbon Dioxide Level 21 MMOL/L (21-32) Anion Gap 14 mmol/L (5-15) Blood Urea Nitrogen 73 mg/dL (7-18) H Creatinine 6.7 MG/DL (0.55-1.30) H Estimat Glomerular Filtration Rate 8.4 mL/min (>60) Glucose Level 83 MG/DL (74-106) Calcium Level 8.3 MG/DL (8.5-10.1) L Phosphorus Level 6.1 MG/DL (2.5-4.9) H Magnesium Level 2.3 MG/DL (1.8-2.4) Total Bilirubin 0.5 MG/DL (0.2-1.0) Aspartate Amino Transf (AST/SGOT) 12 U/L (15-37) L Alanine Aminotransferase (ALT/SGPT) 14 U/L (12-78) Alkaline Phosphatase 74 U/L (46-116) C-Reactive Protein, Quantitative 0.7 mg/dL (0.00-0.90) Total Protein 5.5 G/DL (6.4-8.2) L Albumin 2.1 G/DL (3.4-5.0) L Globulin 3.4 g/dL Albumin/Globulin Ratio 0.6 (1.0-2.7) L Intake and Output 08/11/18 08/12/18 19:00 07:00 Intake Total 300 ml 825 ml Output Total 650 ml 1250 ml Balance -350 ml -425 ml IV Total 300 ml 825 ml Output Urine Total 650 ml 1250 ml # Bowel Movements 1 Objective GENERAL: Awake, alert, responsive, no acute distress. HEAD AND NECK: Pupils are equal and reactive to light. Extraocular movements are intact in the right eye. Left eye blindness, Neck was supple. No JVD. LUNGS: fair air entry. No wheezing or rales. HEART: S1 and S2. Distant heart sounds. No Murmur or gallops. ABDOMEN: Soft, nontender, and nontender. Suprapubic catheter was noted. EXTREMITIES: No cyanosis or clubbing. Bilateral lower extremity trace LE's edema. NEUROLOGIC: Cranial nerves II through XII grossly intact. Motor is 5/5 in all extremities. Gait was not assessed due to the patient's status. Assessment/Plan Assessment/Plan 1. DKA. 2. Hypertension. 3. Dyslipidemia. 4. Diabetes type 1 with prior history of diabetic ketoacidosis. 5. Diabetic retinopathy of the left eye blindness. 6. End-stage renal disease secondary to diabetic nephrosclerosis. 7. Coronary artery disease with prior history of myocardial infarction. 8. 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 9. 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 10. Secondary hyperparathyroidism with vitamin D deficiency. 11. Anemia of chronic kidney disease. 12. Metabolic acidosis. 13. Depression with prior suicide attempt. 14. Acute encephalopathy due to toxic metabolic encephalopathy due to DKA. PLAN: 1. in Medical unit. 2. Code status is DNR/DNI as per POLST in the chart. 3. Follow up with Labs and culture. 4. Continue to monitor off abx as clinically stable. 5. DVT prophylaxis, heparin subcutaneous. 6. Dr. Delgaod with critical care , Dr. Chambers from Nephrology and Dr. Rich Wick from Infectious Disease. 7. [place] Planning to [facility]. Christopher Rosado MD Aug 12, 2018 17:09
[2018-08-12] MEDS ORDERED: 1/2 NS 1000ml IV ONE (17:17)
--- NOTE | 2018-08-12 18:17 | Nephrology Progress Note ---
Assessment/Plan Problem List: (1) Acute on chronic renal failure (2) Bladder outlet obstruction (3) Anemia in chronic kidney disease (4) BPH (benign prostatic hypertrophy) (5) DKA (diabetic ketoacidoses) (6) Encephalopathy acute Assessment High Glucose now improved ESRD , in need of dialysis , refuses- presents with high K Encephalopathy , Metabolic Acidosis , Uremic and Diabetic Sever Anemia: Mixed etiology HTn, but presents with low BP Supra Pubic Cath, h/o UTI, BPH Psych disease CAD, elevated Troponin I s/p DKAs Plan in ICu for insulin drip Kayexelate for high K as needed Transfuse as needed Sugar control will do poorly in view of no dialysis plans DNR per orders Subjective ROS Limited/Unobtainable: No Constitutional: Reports: malaise, weakness Objective Objective Last 24 Hour Vital Signs Date Time Temp Pulse Resp B/P (MAP) Pulse Ox O2 Delivery O2 Flow Rate FiO2 08/12/18 16:00 98.2 75 20 107/53 99 Room Air 08/12/18 12:00 98.0 78 19 115/65 100 Room Air 08/12/18 09:00 Room Air 08/12/18 08:00 98.4 75 19 117/66 100 Room Air 08/12/18 04:00 98.0 70 19 127/62 100 Room Air 08/12/18 00:00 98.2 72 19 101/50 99 Room Air 08/11/18 21:00 Room Air 08/11/18 20:00 99.0 81 19 111/65 98 Room Air Intake and Output 08/11/18 08/12/18 19:00 07:00 Intake Total 300 ml 825 ml Output Total 650 ml 1250 ml Balance -350 ml -425 ml IV Total 300 ml 825 ml Output Urine Total 650 ml 1250 ml # Bowel Movements 1 Laboratory Tests 08/12/18 06:58: White Blood Count 7.1, Red Blood Count 2.58L, Hemoglobin 8.1L, Hematocrit 24.8L , Mean Corpuscular Volume 96, Mean Corpuscular Hemoglobin 31.3H, Mean Corpuscular Hemoglobin Concent 32.6, Red Cell Distribution Width 17.3H, Platelet Count 268, Mean Platelet Volume 6.0L, Neutrophils (%) (Auto) 60.0, Lymphocytes (%) (Auto) 26.3, Monocytes (%) (Auto) 7.3, Eosinophils (%) (Auto) 5.7H, Basophils (%) (Auto) 0.6, Erythrocyte Sedimentation Rate 65H, Sodium Level 138, Potassium Level 4.0, Chloride Level 103, Carbon Dioxide Level 21, Anion Gap 14, Blood Urea Nitrogen 73H, Creatinine 6.7H, Estimat Glomerular Filtration Rate 8.4, Glucose Level 83, Calcium Level 8.3L, Phosphorus Level 6.1H , Magnesium Level 2.3, Total Bilirubin 0.5, Aspartate Amino Transf (AST/SGOT) 12L, Alanine Aminotransferase (ALT/SGPT) 14, Alkaline Phosphatase 74, C- Reactive Protein, Quantitative 0.7, Total Protein 5.5L, Albumin 2.1L, Globulin 3.4, Albumin/Globulin Ratio 0.6L Height (Feet): 6 Height (Inches): 0.00 Weight (Pounds): 150 General Appearance: no apparent distress Cardiovascular: normal rate Respiratory/Chest: decreased breath sounds Abdomen: distended Objective no change Luis Chambers MD Aug 12, 2018 18:17
--- NOTE | 2018-08-12 19:30 | NUR ---
HAND-OFF: Report given to NICOLE Ngo.
--- NOTE | 2018-08-12 19:40 | NUR ---
NURSE NOTES: Received patient awake in bed, able to verbalize needs, denies pain. IV site asymptomatic, IVF running at 75ml/hr, dressing dry and intact. Bed on lowest position, call light within reach, 2 side rails up. Will monitor blood glucose closely.
[2018-08-12 20:00] VITALS: BP 113/72
[2018-08-12] MEDS ORDERED: Epoetin Alfa-EPBX (NON ESRD)10,000 unit/ml vial SUBQ ONE ×2 (21:00)
[2018-08-12] MEDS: Epoetin Alfa-EPBX (NON ESRD)10,000 unit/ml vial SUBQ SCH (21:07)
--- NOTE | 2018-08-12 22:00 | NUR ---
NURSE NOTES: Blood sugar is 36 at 2130, given juice with 2 packets of sugar, 50ml of D50 PRN given according to eMar, pt asked for sandwich and ate 100%. BS is now 116 at 2200. Will continue to monitor BS closely.
--- NOTE | 2018-08-12 23:56 | General Progress Note ---
Assessment/Plan Problem List: (1) encephalopathy due to metabolic do (2) Major depressive disorder ICD Codes: F32.9 - Major depressive disorder, single episode, unspecified SNOMED: 983793922 Assessment/Plan cont Cymbalta 40mg qam seroquel 25mg q6hr prn agitation seroquel 25mg po bid provided ro/st Subjective Neurologic/Psychiatric: Reports: anxiety, depressed, emotional problems Allergies: Coded Allergies: CEFEPIME (Verified Allergy, Intermediate, Rash, 03/01/18) Tolerates Carbapenem Subjective the pt is irritable and angry Objective Last 24 Hour Vital Signs Date Time Temp Pulse Resp B/P (MAP) Pulse Ox O2 Delivery O2 Flow Rate FiO2 08/12/18 21:00 Room Air 08/12/18 20:00 98.5 69 17 113/72 99 Room Air 08/12/18 16:00 98.2 75 20 107/53 99 Room Air 08/12/18 12:00 98.0 78 19 115/65 100 Room Air 08/12/18 09:00 Room Air 08/12/18 08:00 98.4 75 19 117/66 100 Room Air 08/12/18 04:00 98.0 70 19 127/62 100 Room Air 08/12/18 00:00 98.2 72 19 101/50 99 Room Air Intake and Output 08/11/18 08/12/18 19:00 07:00 Intake Total 300 ml 825 ml Output Total 650 ml 1250 ml Balance -350 ml -425 ml IV Total 300 ml 825 ml Output Urine Total 650 ml 1250 ml # Bowel Movements 1 Laboratory Tests 08/12/18 06:58: White Blood Count 7.1, Red Blood Count 2.58L, Hemoglobin 8.1L, Hematocrit 24.8L , Mean Corpuscular Volume 96, Mean Corpuscular Hemoglobin 31.3H, Mean Corpuscular Hemoglobin Concent 32.6, Red Cell Distribution Width 17.3H, Platelet Count 268, Mean Platelet Volume 6.0L, Neutrophils (%) (Auto) 60.0, Lymphocytes (%) (Auto) 26.3, Monocytes (%) (Auto) 7.3, Eosinophils (%) (Auto) 5.7H, Basophils (%) (Auto) 0.6, Erythrocyte Sedimentation Rate 65H, Sodium Level 138, Potassium Level 4.0, Chloride Level 103, Carbon Dioxide Level 21, Anion Gap 14, Blood Urea Nitrogen 73H, Creatinine 6.7H, Estimat Glomerular Filtration Rate 8.4, Glucose Level 83, Calcium Level 8.3L, Phosphorus Level 6.1H , Magnesium Level 2.3, Total Bilirubin 0.5, Aspartate Amino Transf (AST/SGOT) 12L, Alanine Aminotransferase (ALT/SGPT) 14, Alkaline Phosphatase 74, C- Reactive Protein, Quantitative 0.7, Total Protein 5.5L, Albumin 2.1L, Globulin 3.4, Albumin/Globulin Ratio 0.6L Height (Feet): 6 Height (Inches): 0.00 Weight (Pounds): 150 General Appearance: no apparent distress, alert, confused, agitated Fatmata Lu MD Aug 12, 2018 23:56
[2018-08-13 04:00] VITALS: BP 115/60
[2018-08-13] MEDS: NovoLOG Insulin Flexpen SUBQ SCH ×7 (06:30→21:05)
--- NOTE | 2018-08-13 06:57 | General Progress Note ---
Assessment/Plan Problem List: (1) DKA (diabetic ketoacidoses) ICD Codes: E13.10 - DKA (diabetic ketoacidoses) SNOMED: 93975134 Qualifiers: Qualified Codes: E10.10 - Type 1 diabetes mellitus with ketoacidosis without coma (2) CKD (chronic kidney disease), stage III ICD Codes: N18.3 - CKD (chronic kidney disease), stage III SNOMED: 208552437 (3) encephalopathy due to metabolic do (4) Pulmonary HTN ICD Codes: I27.0 - Pulmonary HTN SNOMED: 71572268 Assessment/Plan reduce Levemir to 8 units bid - do not hold without notifying me continue Novolog 5 units ac tid continue NISS ac / hs Subjective ROS Limited/Unobtainable: Yes Allergies: Coded Allergies: CEFEPIME (Verified Allergy, Intermediate, Rash, 03/01/18) Tolerates Carbapenem Subjective glucose on lower side this morning I was notified by RN Objective Last 24 Hour Vital Signs Date Time Temp Pulse Resp B/P (MAP) Pulse Ox O2 Delivery O2 Flow Rate FiO2 08/13/18 04:00 98.0 70 16 115/60 97 Room Air 08/12/18 21:00 Room Air 08/12/18 20:00 98.5 69 17 113/72 99 Room Air 08/12/18 16:00 98.2 75 20 107/53 99 Room Air 08/12/18 12:00 98.0 78 19 115/65 100 Room Air 08/12/18 09:00 Room Air 08/12/18 08:00 98.4 75 19 117/66 100 Room Air Intake and Output 08/12/18 08/13/18 18:59 06:59 Intake Total 795 ml 750 ml Output Total 1000 ml 1800 ml Balance -205 ml -1050 ml Intake Oral 720 ml IV Total 75 ml 750 ml Output Urine Total 1000 ml 1800 ml # Bowel Movements 1 Laboratory Tests 08/12/18 06:58: White Blood Count 7.1, Red Blood Count 2.58L, Hemoglobin 8.1L, Hematocrit 24.8L , Mean Corpuscular Volume 96, Mean Corpuscular Hemoglobin 31.3H, Mean Corpuscular Hemoglobin Concent 32.6, Red Cell Distribution Width 17.3H, Platelet Count 268, Mean Platelet Volume 6.0L, Neutrophils (%) (Auto) 60.0, Lymphocytes (%) (Auto) 26.3, Monocytes (%) (Auto) 7.3, Eosinophils (%) (Auto) 5.7H, Basophils (%) (Auto) 0.6, Erythrocyte Sedimentation Rate 65H, Sodium Level 138, Potassium Level 4.0, Chloride Level 103, Carbon Dioxide Level 21, Anion Gap 14, Blood Urea Nitrogen 73H, Creatinine 6.7H, Estimat Glomerular Filtration Rate 8.4, Glucose Level 83, Calcium Level 8.3L, Phosphorus Level 6.1H , Magnesium Level 2.3, Total Bilirubin 0.5, Aspartate Amino Transf (AST/SGOT) 12L, Alanine Aminotransferase (ALT/SGPT) 14, Alkaline Phosphatase 74, C- Reactive Protein, Quantitative 0.7, Total Protein 5.5L, Albumin 2.1L, Globulin 3.4, Albumin/Globulin Ratio 0.6L Height (Feet): 6 Height (Inches): 0.00 Weight (Pounds): 150 General Appearance: no apparent distress Neck: normal alignment Cardiovascular: normal rate Respiratory/Chest: normal breath sounds Abdomen: normal bowel sounds Objective Current Medications Medications (Trade) Dose Ordered Sig/Dunia Route PRN Reason Start Time Stop Time Status Last Admin Dose Admin Dextrose (Dextrose 50%) 25 ml Q30M PRN IV Hypoglycemia 08/11/18 14:30 09/10/18 14:29 08/13/18 06:06 Dextrose (Dextrose 50%) 50 ml Q30M PRN IV Hypoglycemia 08/11/18 14:30 09/10/18 14:29 08/12/18 21:01 Duloxetine HCl (Cymbalta) 40 mg DAILY ORAL 08/12/18 09:00 09/02/18 08:59 08/12/18 08:19 Epoetin Jose (Epoetin Jose-EPBX(NON ESRD)) 10,000 unit WED-WED-WED SUBQ 08/12/18 21:00 09/02/18 20:59 08/12/18 21:07 Heparin Sodium (Porcine) (Heparin 5000 units/ml) 5,000 units EVERY 12 HOURS SUBQ 08/11/18 21:00 08/28/18 08:59 08/12/18 21:13 Insulin Aspart (NovoLOG) BEFORE MEALS AND HS SUBQ 08/11/18 16:30 09/10/18 11:29 08/12/18 17:36 Insulin Aspart (NovoLOG) 5 units NOVOTIAC SUBQ 08/11/18 16:50 09/10/18 07:59 08/13/18 06:36 Insulin Detemir (Levemir) 10 units BID SUBQ 08/11/18 18:00 09/10/18 08:59 08/12/18 17:42 Pantoprazole (Protonix) 40 mg BIAC ORAL 08/11/18 16:30 09/10/18 16:29 08/13/18 06:06 Quetiapine Fumarate (SEROquel) 25 mg Q12HR ORAL 08/11/18 21:00 09/08/18 12:14 08/12/18 21:07 Quetiapine Fumarate (SEROquel) 25 mg Q6H PRN ORAL For Anxiety 08/11/18 14:30 08/31/18 14:29 Sevelamer Carbonate (Renvela) 800 mg THREE TIMES A DAY ORAL 08/13/18 09:00 09/12/18 08:59 Sodium Chloride 1,000 ml @ 75 mls/hr [id number] IV 08/11/18 14:30 09/09/18 14:29 08/13/18 05:51 Vitamin B Complex/ Vit C/Folic Acid (Nephrovite) 1 tab DAILY ORAL 08/12/18 09:00 08/29/18 08:59 08/12/18 08:19 Item Value Date Time Bedside Blood Glucose 140 mg/dl H 08/13/18 0638 Bedside Blood Glucose 116 mg/dl 08/12/18 2200 Bedside Blood Glucose 303 mg/dl H 08/12/18 1742 Bedside Blood Glucose 461 mg/dl H 08/12/18 1426 Bedside Blood Glucose 206 mg/dl H 08/12/18 0839 Bedside Blood Glucose 70 mg/dl 08/12/18 0630 Modesto Jacques MD Aug 13, 2018 06:57
--- NOTE | 2018-08-13 07:36 | NUR ---
HAND-OFF: Report given to NICOLE Valle.
[2018-08-13 08:00] VITALS: BP 117/54
--- NOTE | 2018-08-13 08:00 | NUR ---
NURSE NOTES: Received report from NICOLE Malave. Pt is in the bed. Eating breakfast, On the RA. No s/s of respiratory distress or discomfort noted. Bed is in the lowest position. Call light is within the reach. Will continue to monitor.
[2018-08-13] MEDS ORDERED: 1/2 NS 1000ml IV ONE ×3 (09:03→14:04)
[2018-08-13] MEDS: Nephrovite tab (Rena-Vite) ORAL SCH (09:04)
[2018-08-13] MEDS: Heparin 5000 units/ml inj SUBQ SCH ×2 (09:09→21:04)
[2018-08-13] MEDS: Levemir Flexpen SUBQ SCH ×2 (09:18→17:32)
--- NOTE | 2018-08-13 09:20 | Urology Progress Note ---
Assessment/Plan Assessment/Plan 1. Urinary retention. 2. Neurogenic bladder. 3. History of chronic suprapubic tube. 4. BPH history. 5. History of end-stage renal disease. 6. Hematuria. 7. Pyuria. 8. Proteinuria. 9. Renal cysts. monitor clinically keep sp tube, last exchanged 08/01 hand irrigated and do PRN cath secured to pt's leg s/p abx recheck urine cx at some point Subjective Allergies: Coded Allergies: CEFEPIME (Verified Allergy, Intermediate, Rash, 03/01/18) Tolerates Carbapenem Subjective all noted, new sp tube draining well, occasional leakage Objective Last 24 Hour Vital Signs Date Time Temp Pulse Resp B/P (MAP) Pulse Ox O2 Delivery O2 Flow Rate FiO2 08/13/18 04:00 98.0 70 16 115/60 97 Room Air 08/12/18 21:00 Room Air 08/12/18 20:00 98.5 69 17 113/72 99 Room Air 08/12/18 16:00 98.2 75 20 107/53 99 Room Air 08/12/18 12:00 98.0 78 19 115/65 100 Room Air Intake and Output 08/12/18 08/13/18 18:59 06:59 Intake Total 795 ml 825 ml Output Total 1000 ml 1800 ml Balance -205 ml -975 ml Intake Oral 720 ml IV Total 75 ml 825 ml Output Urine Total 1000 ml 1800 ml # Bowel Movements 1 Microbiology Date/Time Source Procedure Growth Status 07/29/18 05:29 Blood Blood Culture - Final NO GROWTH AFTER 5 DAYS Complete 07/29/18 00:30 Nasal Nares MRSA Culture - Final Staphylococcus Aureus - Mrsa Complete 07/29/18 05:15 Urine,Clean Catch Urine Culture - Final Gram Positive Cocci Complete 07/29/18 00:30 Rectum VRE Culture - Final Enterococcus Faecalis - Vre Enterococcus Faecium - Vre Complete Current Medications Medications (Trade) Dose Ordered Sig/Dunia Route PRN Reason Start Time Stop Time Status Last Admin Dose Admin Dextrose (Dextrose 50%) 25 ml Q30M PRN IV Hypoglycemia 08/11/18 14:30 09/10/18 14:29 08/13/18 06:06 Dextrose (Dextrose 50%) 50 ml Q30M PRN IV Hypoglycemia 08/11/18 14:30 09/10/18 14:29 08/12/18 21:01 Duloxetine HCl (Cymbalta) 40 mg DAILY ORAL 08/12/18 09:00 09/02/18 08:59 08/12/18 08:19 Epoetin Jose (Epoetin Jose-EPBX(NON ESRD)) 10,000 unit WED-WED-WED SUBQ 08/12/18 21:00 09/02/18 20:59 08/12/18 21:07 Heparin Sodium (Porcine) (Heparin 5000 units/ml) 5,000 units EVERY 12 HOURS SUBQ 08/11/18 21:00 08/28/18 08:59 08/12/18 21:13 Insulin Aspart (NovoLOG) BEFORE MEALS AND HS SUBQ 08/11/18 16:30 09/10/18 11:29 08/12/18 17:36 Insulin Aspart (NovoLOG) 5 units NOVOTIAC SUBQ 08/11/18 16:50 09/10/18 07:59 08/13/18 06:36 Insulin Detemir (Levemir) 8 units BID SUBQ 08/13/18 09:00 09/10/18 08:59 Pantoprazole (Protonix) 40 mg BIAC ORAL 08/11/18 16:30 09/10/18 16:29 08/13/18 06:06 Quetiapine Fumarate (SEROquel) 25 mg Q12HR ORAL 08/11/18 21:00 09/08/18 12:14 08/12/18 21:07 Quetiapine Fumarate (SEROquel) 25 mg Q6H PRN ORAL For Anxiety 08/11/18 14:30 08/31/18 14:29 Sevelamer Carbonate (Renvela) 800 mg THREE TIMES A DAY ORAL 08/13/18 09:00 09/12/18 08:59 Sodium Chloride 1,000 ml @ 75 mls/hr [id number] IV 08/11/18 14:30 09/09/18 14:29 08/13/18 05:51 Vitamin B Complex/ Vit C/Folic Acid (Nephrovite) 1 tab DAILY ORAL 08/12/18 09:00 08/29/18 08:59 08/12/18 08:19 Height (Feet): 6 Height (Inches): 0.00 Weight (Pounds): 150 Objective exam stable Ye Rios MD Aug 13, 2018 09:20
[2018-08-13] MEDS ORDERED: Tubing IV Secondary IV ONE (10:56)
[2018-08-13 12:00] VITALS: BP 114/59
--- NOTE | 2018-08-13 12:00 | NUR ---
NURSE NOTES: Dr Jacques is notified about the Pt's blood glucose. No new orders received
[2018-08-13] MEDS ORDERED: Albuterol/Ipratropium 3ml neb HHN PRN (14:30)
--- NOTE | 2018-08-13 14:32 | Pulmonology Progress Note ---
Assessment/Plan Assessment/Plan ASSESSMENT DKA, recurrent -resolved Sepsis likely due to UTI Probable UTI, s/p Rx Acute metabolic encephalopathy Acute on chronic renal failure (CKD st 4) Bladder outlet obstruction BPH S/pubic catheter ( last exchanged 08/01) Hyper K-resolved Metabolic acidosis Anemia of chronic kidney disease Protein calorie malnutrition R hip decub, POA MDD PLAN OF CARE MS floor s/p insulin management at ICU further BS management as per endo recs pulse ox stable on room air no chest pain troponin elevated likely due to renal failure IVF monitor renal parameters and electrolytes correct e/lytes as needed, avoid nephrotoxic, fup with further nephro recs needs dialysis as per nephro s/p antibiotic for UTI afebrile, no leuk sepsis was leikyl due to UTI, s/p Rx blood culture preliminary negative; urine culture + GPC ( small colony count) ID follows urologist follows s/p change of s/p catheter 08/01 , irrigate prn monitor H&H with goal to keep hemoglobin above 7 dietary recs impalemented in POC l wound care as per protocol psychiatrist follows; psychiatric medication regimen optimized supportive care DNR/DNI case discussed and evaluated by supervising physician Subjective Allergies: Coded Allergies: CEFEPIME (Verified Allergy, Intermediate, Rash, 03/01/18) Tolerates Carbapenem Subjective DKA resolved, transferred to MS floor pulse ox stable on RA Objective Last 24 Hour Vital Signs Date Time Temp Pulse Resp B/P (MAP) Pulse Ox O2 Delivery O2 Flow Rate FiO2 08/13/18 12:00 98.8 88 17 114/59 93 Room Air 08/13/18 09:00 Room Air 08/13/18 08:00 97.3 75 18 117/54 97 Room Air 08/13/18 04:00 98.0 70 16 115/60 97 Room Air 08/12/18 21:00 Room Air 08/12/18 20:00 98.5 69 17 113/72 99 Room Air 08/12/18 16:00 98.2 75 20 107/53 99 Room Air Intake and Output 08/12/18 08/13/18 19:00 07:00 Intake Total 795 ml 825 ml Output Total 1000 ml 1800 ml Balance -205 ml -975 ml Intake Oral 720 ml IV Total 75 ml 825 ml Output Urine Total 1000 ml 1800 ml # Bowel Movements 1 General Appearance: no acute distress, other - awake, confused HEENT: normocephalic, atraumatic, anicteric, mucous membranes moist Respiratory/Chest: lungs clear, no respiratory distress, no accessory muscle use Cardiovascular: normal peripheral pulses, regular rhythm, no JVD Abdomen: soft, non tender, non distended Extremities: no edema, pedal pulses normal Neurologic/Psychiatric: abnormal gait, alert Musculoskeletal: atrophy - BLE Current Medications Medications (Trade) Dose Ordered Sig/Dunia Route PRN Reason Start Time Stop Time Status Last Admin Dose Admin Dextrose (Dextrose 50%) 25 ml Q30M PRN IV Hypoglycemia 08/11/18 14:30 09/10/18 14:29 08/13/18 06:06 Dextrose (Dextrose 50%) 50 ml Q30M PRN IV Hypoglycemia 08/11/18 14:30 09/10/18 14:29 08/12/18 21:01 Duloxetine HCl (Cymbalta) 40 mg DAILY ORAL 08/12/18 09:00 09/02/18 08:59 08/13/18 09:04 Epoetin Jose (Epoetin Jose-EPBX(NON ESRD)) 10,000 unit WED-WED-WED SUBQ 08/12/18 21:00 09/02/18 20:59 08/12/18 21:07 Heparin Sodium (Porcine) (Heparin 5000 units/ml) 5,000 units EVERY 12 HOURS SUBQ 08/11/18 21:00 08/28/18 08:59 08/13/18 09:09 Insulin Aspart (NovoLOG) BEFORE MEALS AND HS SUBQ 08/11/18 16:30 09/10/18 11:29 08/13/18 12:12 Insulin Aspart (NovoLOG) 5 units NOVOTIAC SUBQ 08/11/18 16:50 09/10/18 07:59 08/13/18 12:12 Insulin Detemir (Levemir) 8 units BID SUBQ 08/13/18 09:00 09/10/18 08:59 08/13/18 09:18 Pantoprazole (Protonix) 40 mg BIAC ORAL 08/11/18 16:30 09/10/18 16:29 08/13/18 06:06 Quetiapine Fumarate (SEROquel) 25 mg Q12HR ORAL 08/11/18 21:00 09/08/18 12:14 08/13/18 09:04 Quetiapine Fumarate (SEROquel) 25 mg Q6H PRN ORAL For Anxiety 08/11/18 14:30 08/31/18 14:29 Sevelamer Carbonate (Renvela) 800 mg THREE TIMES A DAY ORAL 08/13/18 09:00 09/12/18 08:59 08/13/18 12:14 Sodium Chloride 1,000 ml @ 75 mls/hr [id number] IV 08/11/18 14:30 09/09/18 14:29 08/13/18 05:51 Vitamin B Complex/ Vit C/Folic Acid (Nephrovite) 1 tab DAILY ORAL 08/12/18 09:00 08/29/18 08:59 08/13/18 09:04 Catherine Griffin MANAGER [employer]OCATION Aug 13, 2018 14:32
--- NOTE | 2018-08-13 14:54 | Internal Med Progress Note ---
Subjective Date of Service: Aug 13, 2018 Physician Name GlasgowJose Attending Physician Christopher Rosado MD Current Medications Medications (Trade) Dose Ordered Sig/Dunia Route PRN Reason Start Time Stop Time Status Last Admin Dose Admin Albuterol/ Ipratropium (Albuterol/ Ipratropium) 3 ml Q4H PRN HHN Shortness of Breath 08/13/18 14:30 08/18/18 14:29 Dextrose (Dextrose 50%) 25 ml Q30M PRN IV Hypoglycemia 08/11/18 14:30 09/10/18 14:29 08/13/18 06:06 Dextrose (Dextrose 50%) 50 ml Q30M PRN IV Hypoglycemia 08/11/18 14:30 09/10/18 14:29 08/12/18 21:01 Duloxetine HCl (Cymbalta) 40 mg DAILY ORAL 08/12/18 09:00 09/02/18 08:59 08/13/18 09:04 Epoetin Jose (Epoetin Jose-EPBX(NON ESRD)) 10,000 unit WED-WED-WED SUBQ 08/12/18 21:00 09/02/18 20:59 08/12/18 21:07 Heparin Sodium (Porcine) (Heparin 5000 units/ml) 5,000 units EVERY 12 HOURS SUBQ 08/11/18 21:00 08/28/18 08:59 08/13/18 09:09 Insulin Aspart (NovoLOG) BEFORE MEALS AND HS SUBQ 08/11/18 16:30 09/10/18 11:29 08/13/18 12:12 Insulin Aspart (NovoLOG) 5 units NOVOTIAC SUBQ 08/11/18 16:50 09/10/18 07:59 08/13/18 12:12 Insulin Detemir (Levemir) 8 units BID SUBQ 08/13/18 09:00 09/10/18 08:59 08/13/18 09:18 Pantoprazole (Protonix) 40 mg BIAC ORAL 08/11/18 16:30 09/10/18 16:29 08/13/18 06:06 Quetiapine Fumarate (SEROquel) 25 mg Q12HR ORAL 08/11/18 21:00 09/08/18 12:14 08/13/18 09:04 Quetiapine Fumarate (SEROquel) 25 mg Q6H PRN ORAL For Anxiety 08/11/18 14:30 08/31/18 14:29 Sevelamer Carbonate (Renvela) 800 mg THREE TIMES A DAY ORAL 08/13/18 09:00 09/12/18 08:59 08/13/18 12:14 Sodium Chloride 1,000 ml @ 75 mls/hr [id number] IV 08/11/18 14:30 09/09/18 14:29 08/13/18 05:51 Vitamin B Complex/ Vit C/Folic Acid (Nephrovite) 1 tab DAILY ORAL 08/12/18 09:00 08/29/18 08:59 08/13/18 09:04 Allergies: Coded Allergies: CEFEPIME (Verified Allergy, Intermediate, Rash, 03/01/18) Tolerates Carbapenem ROS Limited/Unobtainable: No Constitutional: Reports: no symptoms HEENT: Reports: no symptoms Cardiovascular: Reports: no symptoms Respiratory: Reports: no symptoms Gastrointestinal/Abdominal: Reports: no symptoms Genitourinary: Reports: no symptoms Neurologic/Psychiatric: Reports: no symptoms Subjective 63 YO M with history of diabetes I admitted with hyperglycemia and DKA. Cover for Int Med-Dr Rosado. Await acceptance to SNF Objective Last Vital Signs Date Time Temp Pulse Resp B/P (MAP) Pulse Ox O2 Delivery O2 Flow Rate FiO2 08/13/18 12:00 98.8 88 17 114/59 93 Room Air 08/10/18 04:00 21 Intake and Output 08/12/18 08/13/18 19:00 07:00 Intake Total 795 ml 825 ml Output Total 1000 ml 1800 ml Balance -205 ml -975 ml Intake Oral 720 ml IV Total 75 ml 825 ml Output Urine Total 1000 ml 1800 ml # Bowel Movements 1 Objective GENERAL: The patient is awake and responsive but confused, in no acute distress. HEAD AND NECK: Pupils are equal and reactive to light. Extraocular movements are intact in the right eye. Left eye blindness, Neck was supple. No JVD. LUNGS: fair air entry. No wheezing or rales. HEART: S1 and S2. Distant heart sounds. No Murmur or gallops. ABDOMEN: Soft, nontender, and nontender. Suprapubic catheter was noted. EXTREMITIES: No cyanosis or clubbing. Bilateral lower extremity trace LE's edema. NEUROLOGIC: Cranial nerves II through XII grossly intact. Motor is 5/5 in all extremities. Gait was not assessed due to the patient's status. Assessment/Plan Assessment/Plan ASSESSMENT: 1. DKA. 2. Hypertension. 3. Dyslipidemia. 4. Diabetes type 1 with prior history of diabetic ketoacidosis. 5. Diabetic retinopathy of the left eye blindness. 6. End-stage renal disease secondary to diabetic nephrosclerosis. 7. Coronary artery disease with prior history of myocardial infarction. 8. 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 9. 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 10. Secondary hyperparathyroidism with vitamin D deficiency. 11. Anemia of chronic kidney disease. 12. Metabolic acidosis. 13. Depression with prior suicide attempt. 14. Acute encephalopathy due to toxic metabolic encephalopathy due to DKA. 15. Hyperkalemia PLAN: 1. Med/surg 2. Code status is DNR/DNI as per POLST in the chart. 3. Resume prison medications. 4. Follow up with Labs and culture. 5. Broad spectrum antibiotic with Meropenem. 6. DVT prophylaxis, heparin subcutaneous. 7. We will follow up with Dr. Delgado with critical care , Dr. Chambers from Nephrology and Dr. Rich Wick from Infectious Disease. 8. We will follow up with the cultures and laboratory in the morning. 9. Better control with Levemir and Insulin sliding scale per endocrinology 10. Discharge planning: SNF when bed available. Unable to return to [facility] 11. Kayexalate for hyperkalemia Jose Glasgow MD Aug 13, 2018 14:54
[2018-08-13 16:00] VITALS: BP 118/61
--- NOTE | 2018-08-13 17:09 | Nephrology Progress Note ---
Assessment/Plan Problem List: (1) Acute on chronic renal failure (2) Bladder outlet obstruction (3) Anemia in chronic kidney disease (4) BPH (benign prostatic hypertrophy) (5) DKA (diabetic ketoacidoses) (6) Encephalopathy acute Assessment High Glucose now improved ESRD , in need of dialysis , refuses- presents with high K Encephalopathy , Metabolic Acidosis , Uremic and Diabetic Sever Anemia: Mixed etiology HTn, but presents with low BP Supra Pubic Cath, h/o UTI, BPH Psych disease CAD, elevated Troponin I s/p DKAs Plan no labs today Kayexelate for high K as needed Transfuse as needed Sugar control will do poorly in view of no dialysis plans DNR per orders Subjective ROS Limited/Unobtainable: No Constitutional: Reports: malaise, weakness Objective Objective Last 24 Hour Vital Signs Date Time Temp Pulse Resp B/P (MAP) Pulse Ox O2 Delivery O2 Flow Rate FiO2 08/13/18 16:00 98.0 71 18 118/61 97 Room Air 08/13/18 12:00 98.8 88 17 114/59 93 Room Air 08/13/18 09:00 Room Air 08/13/18 08:00 97.3 75 18 117/54 97 Room Air 08/13/18 04:00 98.0 70 16 115/60 97 Room Air 08/12/18 21:00 Room Air 08/12/18 20:00 98.5 69 17 113/72 99 Room Air Intake and Output 08/12/18 08/13/18 19:00 07:00 Intake Total 795 ml 825 ml Output Total 1000 ml 1800 ml Balance -205 ml -975 ml Intake Oral 720 ml IV Total 75 ml 825 ml Output Urine Total 1000 ml 1800 ml # Bowel Movements 1 Height (Feet): 6 Height (Inches): 0.00 Weight (Pounds): 150 General Appearance: no apparent distress Cardiovascular: normal rate Respiratory/Chest: decreased breath sounds Abdomen: soft Objective no change Luis Chambers MD Aug 13, 2018 17:09
--- NOTE | 2018-08-13 19:06 | NUR ---
HAND-OFF: Report given to NICOLE Rodrigues.
--- NOTE | 2018-08-13 19:28 | NUR ---
NURSE NOTES: Received patient in bed, alseep. On RA, no SOB, no acute distress. IV on RFA intact, patent running fluids. Suprapubic cath intact, inplaced. Bed in lowest position, locked, alarms on. Call light in reach.
[2018-08-13 20:00] VITALS: BP 134/66
--- NOTE | 2018-08-13 21:00 | NUR ---
NURSE NOTES: Patient noted with blood sugar of 439 at 2030, asymptomatic. Covered with [address] Jacques, no new order received.
--- NOTE | 2018-08-13 23:11 | General Progress Note ---
Assessment/Plan Problem List: (1) encephalopathy due to metabolic do (2) Major depressive disorder ICD Codes: F32.9 - Major depressive disorder, single episode, unspecified SNOMED: 873189036 Assessment/Plan cont Cymbalta 40mg qam seroquel 25mg q6hr prn agitation seroquel 25mg po bid provided ro/st Subjective Neurologic/Psychiatric: Reports: anxiety, depressed, emotional problems Allergies: Coded Allergies: CEFEPIME (Verified Allergy, Intermediate, Rash, 03/01/18) Tolerates Carbapenem Subjective the pt is irritable and depressed Objective Last 24 Hour Vital Signs Date Time Temp Pulse Resp B/P (MAP) Pulse Ox O2 Delivery O2 Flow Rate FiO2 08/13/18 21:00 Room Air 08/13/18 20:00 97.0 83 18 134/66 95 Room Air 08/13/18 16:00 98.0 71 18 118/61 97 Room Air 08/13/18 12:00 98.8 88 17 114/59 93 Room Air 08/13/18 09:00 Room Air 08/13/18 08:00 97.3 75 18 117/54 97 Room Air 08/13/18 04:00 98.0 70 16 115/60 97 Room Air Intake and Output 08/12/18 08/13/18 19:00 07:00 Intake Total 795 ml 825 ml Output Total 1000 ml 1800 ml Balance -205 ml -975 ml Intake Oral 720 ml IV Total 75 ml 825 ml Output Urine Total 1000 ml 1800 ml # Bowel Movements 1 Height (Feet): 6 Height (Inches): 0.00 Weight (Pounds): 150 General Appearance: alert Neurologic: oriented x 3, responsive, depressed affect Fatmata Lu MD Aug 13, 2018 23:11
[2018-08-14] VITALS: BP 137/71
[2018-08-14 04:00] VITALS: BP 111/75
[2018-08-14] MEDS: NovoLOG Insulin Flexpen SUBQ SCH ×7 (06:50→20:30)
--- NOTE | 2018-08-14 07:23 | General Progress Note ---
Assessment/Plan Problem List: (1) DKA (diabetic ketoacidoses) ICD Codes: E13.10 - DKA (diabetic ketoacidoses) SNOMED: 34666142 Qualifiers: Qualified Codes: E10.10 - Type 1 diabetes mellitus with ketoacidosis without coma (2) CKD (chronic kidney disease), stage III ICD Codes: N18.3 - CKD (chronic kidney disease), stage III SNOMED: 632706254 (3) encephalopathy due to metabolic do (4) Pulmonary HTN ICD Codes: I27.0 - Pulmonary HTN SNOMED: 43734398 Assessment/Plan increase Levemir to 10 units bid - do not hold without notifying me continue Novolog 5 units ac tid continue NISS ac / hs Subjective Allergies: Coded Allergies: CEFEPIME (Verified Allergy, Intermediate, Rash, 03/01/18) Tolerates Carbapenem All Systems: reviewed and negative except above Subjective events noted - glucose values on higher side Objective Last 24 Hour Vital Signs Date Time Temp Pulse Resp B/P (MAP) Pulse Ox O2 Delivery O2 Flow Rate FiO2 08/14/18 04:00 97.3 87 18 111/75 97 Room Air 08/14/18 00:00 97.7 79 18 137/71 96 Room Air 08/13/18 21:00 Room Air 08/13/18 20:00 97.0 83 18 134/66 95 Room Air 08/13/18 16:00 98.0 71 18 118/61 97 Room Air 08/13/18 12:00 98.8 88 17 114/59 93 Room Air 08/13/18 09:00 Room Air 08/13/18 08:00 97.3 75 18 117/54 97 Room Air Intake and Output 08/13/18 08/14/18 19:00 07:00 Intake Total 2200 ml 990 ml Output Total 1900 ml 1750 ml Balance 300 ml -760 ml Intake Oral 240 ml IV Total 900 ml 750 ml Other 1300 ml Output Urine Total 1900 ml 1750 ml Height (Feet): 6 Height (Inches): 0.00 Weight (Pounds): 148 General Appearance: no apparent distress Neck: normal alignment Cardiovascular: normal rate Respiratory/Chest: normal breath sounds Abdomen: normal bowel sounds Objective Current Medications Medications (Trade) Dose Ordered Sig/Dunia Route PRN Reason Start Time Stop Time Status Last Admin Dose Admin Albuterol/ Ipratropium (Albuterol/ Ipratropium) 3 ml Q4H PRN HHN Shortness of Breath 08/13/18 14:30 08/18/18 14:29 Dextrose (Dextrose 50%) 25 ml Q30M PRN IV Hypoglycemia 08/11/18 14:30 09/10/18 14:29 08/13/18 06:06 Dextrose (Dextrose 50%) 50 ml Q30M PRN IV Hypoglycemia 08/11/18 14:30 09/10/18 14:29 08/12/18 21:01 Duloxetine HCl (Cymbalta) 40 mg DAILY ORAL 08/12/18 09:00 09/02/18 08:59 08/13/18 09:04 Epoetin Jose (Epoetin Jose-EPBX(NON ESRD)) 10,000 unit WED-WED-WED SUBQ 08/12/18 21:00 09/02/18 20:59 08/12/18 21:07 Heparin Sodium (Porcine) (Heparin 5000 units/ml) 5,000 units EVERY 12 HOURS SUBQ 08/11/18 21:00 08/28/18 08:59 08/13/18 21:04 Insulin Aspart (NovoLOG) BEFORE MEALS AND HS SUBQ 08/11/18 16:30 09/10/18 11:29 08/14/18 06:50 Insulin Aspart (NovoLOG) 5 units NOVOTIAC SUBQ 08/11/18 16:50 09/10/18 07:59 08/14/18 06:50 Insulin Detemir (Levemir) 8 units BID SUBQ 08/13/18 09:00 09/10/18 08:59 08/13/18 17:32 Pantoprazole (Protonix) 40 mg BIAC ORAL 08/11/18 16:30 09/10/18 16:29 08/14/18 06:51 Quetiapine Fumarate (SEROquel) 25 mg Q12HR ORAL 08/11/18 21:00 09/08/18 12:14 08/13/18 21:03 Quetiapine Fumarate (SEROquel) 25 mg Q6H PRN ORAL For Anxiety 08/11/18 14:30 08/31/18 14:29 Sevelamer Carbonate (Renvela) 800 mg THREE TIMES A DAY ORAL 08/13/18 09:00 09/12/18 08:59 08/13/18 17:27 Sodium Chloride 1,000 ml @ 75 mls/hr [id number] IV 08/11/18 14:30 09/09/18 14:29 08/13/18 19:43 Vitamin B Complex/ Vit C/Folic Acid (Nephrovite) 1 tab DAILY ORAL 08/12/18 09:00 08/29/18 08:59 08/13/18 09:04 Item Value Date Time Bedside Blood Glucose 298 mg/dl H 08/14/18 0650 Bedside Blood Glucose 439 mg/dl H 08/13/18 2105 Bedside Blood Glucose 325 mg/dl H 08/13/18 1732 Bedside Blood Glucose 425 mg/dl H 08/13/18 1212 Bedside Blood Glucose 140 mg/dl H 08/13/18 0918 Bedside Blood Glucose 140 mg/dl H 08/13/18 0638 [place] Jacques MD Aug 14, 2018 07:23
--- NOTE | 2018-08-14 07:45 | NUR ---
HAND-OFF: Report given to Albert RIVERA.
[2018-08-14 08:00] VITALS: BP 120/80
--- NOTE | 2018-08-14 08:00 | NUR ---
NURSE NOTES: Received report from NICOLE Allen. Pt is in the bed , RA. No s.s of respiratory distress or discomfort noted. Bed is in the lowest position. Call light is within the reach. Will continue to monitor.
--- NOTE | 2018-08-14 08:18 | Pulmonology Progress Note ---
Assessment/Plan Assessment/Plan ASSESSMENT DKA, recurrent -resolved Sepsis likely due to UTI Probable UTI, s/p Rx Acute metabolic encephalopathy Acute on chronic renal failure (CKD st 4) Bladder outlet obstruction BPH S/pubic catheter ( last exchanged 08/01) Hyper K-resolved Metabolic acidosis Anemia of chronic kidney disease Protein calorie malnutrition R hip decub, POA MDD PLAN OF CARE [facility] floor s/p insulin management at ICU further BS management as per endo recs pulse ox stable on room air no chest pain troponin elevated likely due to renal failure IVF monitor renal parameters and electrolytes correct e/lytes as needed, avoid nephrotoxic, fup with further nephro recs needs dialysis as per nephro no labs today, will order for am s/p antibiotic for UTI afebrile, no leuk sepsis was leikyl due to UTI, s/p Rx blood culture preliminary negative; urine culture + GPC ( small colony count) ID follows urologist follows s/p change of s/p catheter 08/01 , irrigate prn monitor H&H with goal to keep hemoglobin above 7 dietary recs impalemented in POC l wound care as per protocol psychiatrist follows; psychiatric medication regimen optimized supportive care DNR/DNI case discussed and evaluated by supervising physician Subjective Allergies: Coded Allergies: CEFEPIME (Verified Allergy, Intermediate, Rash, 03/01/18) Tolerates Carbapenem Subjective DKA resolved, on MS floor pulse ox stable on RA Objective Last 24 Hour Vital Signs Date Time Temp Pulse Resp B/P (MAP) Pulse Ox O2 Delivery O2 Flow Rate FiO2 08/14/18 04:00 97.3 87 18 111/75 97 Room Air 08/14/18 00:00 97.7 79 18 137/71 96 Room Air 08/13/18 21:00 Room Air 08/13/18 20:00 97.0 83 18 134/66 95 Room Air 08/13/18 16:00 98.0 71 18 118/61 97 Room Air 08/13/18 12:00 98.8 88 17 114/59 93 Room Air 08/13/18 09:00 Room Air Intake and Output 08/13/18 08/14/18 19:00 07:00 Intake Total 2200 ml 990 ml Output Total 1900 ml 1750 ml Balance 300 ml -760 ml Intake Oral 240 ml IV Total 900 ml 750 ml Other 1300 ml Output Urine Total 1900 ml 1750 ml Objective General Appearance: no acute distress, other - awake, confused HEENT: normocephalic, atraumatic, anicteric, mucous membranes moist Respiratory/Chest: lungs clear, no respiratory distress, no accessory muscle use Cardiovascular: normal peripheral pulses, regular rhythm, no JVD Abdomen: soft, non tender, non distended Extremities: no edema, pedal pulses normal Neurologic/Psychiatric: abnormal gait, alert Musculoskeletal: atrophy - BLE Current Medications Medications (Trade) Dose Ordered Sig/Dunia Route PRN Reason Start Time Stop Time Status Last Admin Dose Admin Albuterol/ Ipratropium (Albuterol/ Ipratropium) 3 ml Q4H PRN HHN Shortness of Breath 08/13/18 14:30 08/18/18 14:29 Dextrose (Dextrose 50%) 25 ml Q30M PRN IV Hypoglycemia 08/11/18 14:30 09/10/18 14:29 08/13/18 06:06 Dextrose (Dextrose 50%) 50 ml Q30M PRN IV Hypoglycemia 08/11/18 14:30 09/10/18 14:29 08/12/18 21:01 Duloxetine HCl (Cymbalta) 40 mg DAILY ORAL 08/12/18 09:00 09/02/18 08:59 08/13/18 09:04 Epoetin Jose (Epoetin Jose-EPBX(NON ESRD)) 10,000 unit WED-WED-WED SUBQ 08/12/18 21:00 09/02/18 20:59 08/12/18 21:07 Heparin Sodium (Porcine) (Heparin 5000 units/ml) 5,000 units EVERY 12 HOURS SUBQ 08/11/18 21:00 08/28/18 08:59 08/13/18 21:04 Insulin Aspart (NovoLOG) BEFORE MEALS AND HS SUBQ 08/11/18 16:30 09/10/18 11:29 08/14/18 06:50 Insulin Aspart (NovoLOG) 5 units NOVOTIAC SUBQ 08/11/18 16:50 09/10/18 07:59 08/14/18 06:50 Insulin Detemir (Levemir) 10 units BID SUBQ 08/14/18 09:00 09/10/18 08:59 Pantoprazole (Protonix) 40 mg BIAC ORAL 08/11/18 16:30 09/10/18 16:29 08/14/18 06:51 Quetiapine Fumarate (SEROquel) 25 mg Q12HR ORAL 08/11/18 21:00 09/08/18 12:14 08/13/18 21:03 Quetiapine Fumarate (SEROquel) 25 mg Q6H PRN ORAL For Anxiety 08/11/18 14:30 08/31/18 14:29 Sevelamer Carbonate (Renvela) 800 mg THREE TIMES A DAY ORAL 08/13/18 09:00 09/12/18 08:59 08/13/18 17:27 Sodium Chloride 1,000 ml @ 75 mls/hr [id number] IV 08/11/18 14:30 09/09/18 14:29 08/13/18 19:43 Vitamin B Complex/ Vit C/Folic Acid (Nephrovite) 1 tab DAILY ORAL 08/12/18 09:00 08/29/18 08:59 08/13/18 09:04 Catherine Griffin NP Aug 14, 2018 08:18
[2018-08-14] MEDS: Nephrovite tab (Rena-Vite) ORAL SCH (08:46)
[2018-08-14] MEDS: Levemir Flexpen SUBQ SCH ×2 (08:47→17:23)
[2018-08-14] MEDS: Heparin 5000 units/ml inj SUBQ SCH ×2 (08:47→20:46)
--- NOTE | 2018-08-14 10:17 | Urology Progress Note ---
Assessment/Plan Assessment/Plan 1. Urinary retention. 2. Neurogenic bladder. 3. History of chronic suprapubic tube. 4. BPH history. 5. History of end-stage renal disease. 6. Hematuria. 7. Pyuria. 8. Proteinuria. 9. Renal cysts. monitor clinically keep sp tube, last exchanged 08/01 hand irrigated and do PRN cath secured to pt's leg s/p abx recheck urine cx at some point Subjective Allergies: Coded Allergies: CEFEPIME (Verified Allergy, Intermediate, Rash, 03/01/18) Tolerates Carbapenem Subjective all noted, new sp tube draining well, occasional leakage Objective Last 24 Hour Vital Signs Date Time Temp Pulse Resp B/P (MAP) Pulse Ox O2 Delivery O2 Flow Rate FiO2 08/14/18 08:20 112 20 Room Air 21 08/14/18 08:00 97.2 94 18 120/80 99 Room Air 08/14/18 04:00 97.3 87 18 111/75 97 Room Air 08/14/18 00:00 97.7 79 18 137/71 96 Room Air 08/13/18 21:00 Room Air 08/13/18 20:00 97.0 83 18 134/66 95 Room Air 08/13/18 16:00 98.0 71 18 118/61 97 Room Air 08/13/18 12:00 98.8 88 17 114/59 93 Room Air Intake and Output 08/13/18 08/14/18 19:00 07:00 Intake Total 2200 ml 990 ml Output Total 1900 ml 1750 ml Balance 300 ml -760 ml Intake Oral 240 ml IV Total 900 ml 750 ml Other 1300 ml Output Urine Total 1900 ml 1750 ml Microbiology Date/Time Source Procedure Growth Status 07/29/18 05:29 Blood Blood Culture - Final NO GROWTH AFTER 5 DAYS Complete 07/29/18 00:30 Nasal Nares MRSA Culture - Final Staphylococcus Aureus - Mrsa Complete 07/29/18 05:15 Urine,Clean Catch Urine Culture - Final Gram Positive Cocci Complete 07/29/18 00:30 Rectum VRE Culture - Final Enterococcus Faecalis - Vre Enterococcus Faecium - Vre Complete Current Medications Medications (Trade) Dose Ordered Sig/Dunia Route PRN Reason Start Time Stop Time Status Last Admin Dose Admin Albuterol/ Ipratropium (Albuterol/ Ipratropium) 3 ml Q4H PRN HHN Shortness of Breath 08/13/18 14:30 08/18/18 14:29 Dextrose (Dextrose 50%) 25 ml Q30M PRN IV Hypoglycemia 08/11/18 14:30 09/10/18 14:29 08/13/18 06:06 Dextrose (Dextrose 50%) 50 ml Q30M PRN IV Hypoglycemia 08/11/18 14:30 09/10/18 14:29 08/12/18 21:01 Duloxetine HCl (Cymbalta) 40 mg DAILY ORAL 08/12/18 09:00 09/02/18 08:59 08/14/18 08:46 Epoetin Jose (Epoetin Jose-EPBX(NON ESRD)) 10,000 unit WED-WED-WED SUBQ 08/12/18 21:00 09/02/18 20:59 08/12/18 21:07 Heparin Sodium (Porcine) (Heparin 5000 units/ml) 5,000 units EVERY 12 HOURS SUBQ 08/11/18 21:00 08/28/18 08:59 08/14/18 08:47 Insulin Aspart (NovoLOG) BEFORE MEALS AND HS SUBQ 08/11/18 16:30 09/10/18 11:29 08/14/18 06:50 Insulin Aspart (NovoLOG) 5 units NOVOTIAC SUBQ 08/11/18 16:50 09/10/18 07:59 08/14/18 06:50 Insulin Detemir (Levemir) 10 units BID SUBQ 08/14/18 09:00 09/10/18 08:59 08/14/18 08:47 Pantoprazole (Protonix) 40 mg BIAC ORAL 08/11/18 16:30 09/10/18 16:29 08/14/18 06:51 Quetiapine Fumarate (SEROquel) 25 mg Q12HR ORAL 08/11/18 21:00 09/08/18 12:14 08/14/18 08:46 Quetiapine Fumarate (SEROquel) 25 mg Q6H PRN ORAL For Anxiety 08/11/18 14:30 08/31/18 14:29 Sevelamer Carbonate (Renvela) 800 mg THREE TIMES A DAY ORAL 08/13/18 09:00 09/12/18 08:59 08/14/18 08:46 Sodium Chloride 1,000 ml @ 75 mls/hr [id number] IV 08/11/18 14:30 09/09/18 14:29 08/14/18 08:48 Vitamin B Complex/ Vit C/Folic Acid (Nephrovite) 1 tab DAILY ORAL 08/12/18 09:00 08/29/18 08:59 08/14/18 08:46 Height (Feet): 6 Height (Inches): 0.00 Weight (Pounds): 148 Objective exam stable Ye Rios MD Aug 14, 2018 10:17
--- NOTE | 2018-08-14 11:14 | NUR ---
NURSE NOTES: Pt's Iv is swollen, infiltrated. Removed by the RN. Dr Rosado notified. Pt has a left arm precaution. Informed and will f/u
--- NOTE | 2018-08-14 11:15 | Infectious Diseases Prog Note ---
Assessment/Plan Assessment/Plan Severe sepsis -likely 2ry to UTI- SP, s/p rx -u.a wbc tntc, nit neg, luek +3; ucx <10k GPC -Bcx Neg -CXR: Suspected atelectasis or scarring right Afebrile Leukocytosis, SP DKA RIVKA, improving hx of recent sepsis 2ry to UTI and bacteremia 07/08/18 UCx - P.a. MDR and Providencia 07/08/18 BCx ESBL Proteus and K. pneumo Dm2 HLD MDD with suicidal attempts in the past w/ resultant chronic encephalopathy CAD/OK BPH anemia asthma colonic polyps ESRD s/p renal and pancreas tx ~10 yrs ago now CKD 4 ConS bacteremia/line infection urinary retention s/p suprapubic catheter 09/2017 recurrent hematuria multiple hospital admissions recurrent UTI DNR Plan: - Continue to monitor off abx as clinically stable -08/02 SP Meropenem d# 5 07/29 SP one dose Amikacin -07/22 SP Meropenem, #14 - f/u cx -Monitor CBC/CMP, temperatures Subjective Allergies: Coded Allergies: CEFEPIME (Verified Allergy, Intermediate, Rash, 03/01/18) Tolerates Carbapenem Subjective afebrile no leukocytosis Objective Vital Signs Last 24 Hour Vital Signs Date Time Temp Pulse Resp B/P (MAP) Pulse Ox O2 Delivery O2 Flow Rate FiO2 08/14/18 09:00 Room Air 08/14/18 08:20 112 20 Room Air 21 08/14/18 08:00 97.2 94 18 120/80 99 Room Air 08/14/18 04:00 97.3 87 18 111/75 97 Room Air 08/14/18 00:00 97.7 79 18 137/71 96 Room Air 08/13/18 21:00 Room Air 08/13/18 20:00 97.0 83 18 134/66 95 Room Air 08/13/18 16:00 98.0 71 18 118/61 97 Room Air 08/13/18 12:00 98.8 88 17 114/59 93 Room Air Height (Feet): 6 Height (Inches): 0.00 Weight (Pounds): 148 Objective Status: awake HEENT: atraumatic Lungs: chest wall tender Heart: HR/BP stable Abdomen: soft, non-tender Extremities: no C/C/E Decubiti: location Current Medications Medications (Trade) Dose Ordered Sig/Dunia Route PRN Reason Start Time Stop Time Status Last Admin Dose Admin Albuterol/ Ipratropium (Albuterol/ Ipratropium) 3 ml Q4H PRN HHN Shortness of Breath 08/13/18 14:30 08/18/18 14:29 Dextrose (Dextrose 50%) 25 ml Q30M PRN IV Hypoglycemia 08/11/18 14:30 09/10/18 14:29 08/13/18 06:06 Dextrose (Dextrose 50%) 50 ml Q30M PRN IV Hypoglycemia 08/11/18 14:30 09/10/18 14:29 08/12/18 21:01 Duloxetine HCl (Cymbalta) 40 mg DAILY ORAL 08/12/18 09:00 09/02/18 08:59 08/14/18 08:46 Epoetin Jose (Epoetin Jose-EPBX(NON ESRD)) 10,000 unit WED-WED-WED SUBQ 08/12/18 21:00 09/02/18 20:59 08/12/18 21:07 Heparin Sodium (Porcine) (Heparin 5000 units/ml) 5,000 units EVERY 12 HOURS SUBQ 08/11/18 21:00 08/28/18 08:59 08/14/18 08:47 Insulin Aspart (NovoLOG) BEFORE MEALS AND HS SUBQ 08/11/18 16:30 09/10/18 11:29 08/14/18 06:50 Insulin Aspart (NovoLOG) 5 units NOVOTIAC SUBQ 08/11/18 16:50 09/10/18 07:59 08/14/18 06:50 Insulin Detemir (Levemir) 10 units BID SUBQ 08/14/18 09:00 09/10/18 08:59 08/14/18 08:47 Pantoprazole (Protonix) 40 mg BIAC ORAL 08/11/18 16:30 09/10/18 16:29 08/14/18 06:51 Quetiapine Fumarate (SEROquel) 25 mg Q12HR ORAL 08/11/18 21:00 09/08/18 12:14 08/14/18 08:46 Quetiapine Fumarate (SEROquel) 25 mg Q6H PRN ORAL For Anxiety 08/11/18 14:30 08/31/18 14:29 Sevelamer Carbonate (Renvela) 800 mg THREE TIMES A DAY ORAL 08/13/18 09:00 09/12/18 08:59 08/14/18 08:46 Sodium Chloride 1,000 ml @ 75 mls/hr [id number] IV 08/11/18 14:30 09/09/18 14:29 08/14/18 08:48 Vitamin B Complex/ Vit C/Folic Acid (Nephrovite) 1 tab DAILY ORAL 08/12/18 09:00 08/29/18 08:59 08/14/18 08:46 Monique Read M.D. Aug 14, 2018 11:15
--- NOTE | 2018-08-14 11:17 | NUR ---
NURSE NOTES: Spoke to RODGER Alexander reg no IV access and the need for IV b/c of the DM. Per Catherine, she would not recommend IV established on the foot and advised to communicate with primary MD. Left message to Dr Rosado
[2018-08-14 12:00] VITALS: BP 107/72
--- NOTE | 2018-08-14 14:20 | Nephrology Progress Note ---
Assessment/Plan Problem List: (1) Acute on chronic renal failure (2) Bladder outlet obstruction (3) Anemia in chronic kidney disease (4) BPH (benign prostatic hypertrophy) (5) DKA (diabetic ketoacidoses) (6) Encephalopathy acute Assessment High Glucose now improved ESRD , in need of dialysis , refuses- presents with high K Encephalopathy , Metabolic Acidosis , Uremic and Diabetic Sever Anemia: Mixed etiology HTn, but presents with low BP Supra Pubic Cath, h/o UTI, BPH Psych disease CAD, elevated Troponin I s/p DKAs Plan no labs today Kayexelate for high K as needed Transfuse as needed Sugar control will do poorly in view of no dialysis plans DNR per orders Subjective ROS Limited/Unobtainable: No Constitutional: Reports: malaise Objective Objective Last 24 Hour Vital Signs Date Time Temp Pulse Resp B/P (MAP) Pulse Ox O2 Delivery O2 Flow Rate FiO2 08/14/18 12:00 99.1 84 16 107/72 99 Room Air 08/14/18 09:00 Room Air 08/14/18 08:20 112 20 Room Air 21 08/14/18 08:00 97.2 94 18 120/80 99 Room Air 08/14/18 04:00 97.3 87 18 111/75 97 Room Air 08/14/18 00:00 97.7 79 18 137/71 96 Room Air 08/13/18 21:00 Room Air 08/13/18 20:00 97.0 83 18 134/66 95 Room Air 08/13/18 16:00 98.0 71 18 118/61 97 Room Air Intake and Output 08/13/18 08/14/18 18:59 06:59 Intake Total 2125 ml 1065 ml Output Total 1900 ml 1750 ml Balance 225 ml -685 ml Intake Oral 240 ml IV Total 825 ml 825 ml Other 1300 ml Output Urine Total 1900 ml 1750 ml Height (Feet): 6 Height (Inches): 0.00 Weight (Pounds): 148 General Appearance: no apparent distress Cardiovascular: tachycardia Respiratory/Chest: decreased breath sounds Abdomen: soft Objective no change Luis Chambers MD Aug 14, 2018 14:20
[2018-08-14 15:24] LABS: BASOPHILS % (AUTO) 0.6 % (0.0-2.0); EOSINOPHILS % (AUTO) 1.1 % (0.0-3.0); HEMATOCRIT 26.3 % (42.0-52.0); HEMOGLOBIN 8.6 G/DL (14.2-18.0); LYMPHOCYTES % (AUTO) 13.5 % (20.0-45.0); MEAN CORPUSCULAR VOLUME 98 FL (80-99); NEUTROPHILS % (AUTO) 77.8 % (45.0-75.0); PLATELET COUNT 253 K/UL (150-450); RED BLOOD COUNT 2.68 M/UL (4.70-6.10); RED CELL DISTRIBUTION WIDTH 18.7 % (11.6-14.8); WHITE BLOOD COUNT 12.2 K/UL (4.8-10.8)
--- NOTE | 2018-08-14 15:52 | Internal Med Progress Note ---
Subjective Date of Service: Aug 14, 2018 Physician Name GlasgowJose Attending Physician Christopher Rosado MD Current Medications Medications (Trade) Dose Ordered Sig/Dunia Route PRN Reason Start Time Stop Time Status Last Admin Dose Admin Albuterol/ Ipratropium (Albuterol/ Ipratropium) 3 ml Q4H PRN HHN Shortness of Breath 08/13/18 14:30 08/18/18 14:29 Dextrose (Dextrose 50%) 25 ml Q30M PRN IV Hypoglycemia 08/11/18 14:30 09/10/18 14:29 08/13/18 06:06 Dextrose (Dextrose 50%) 50 ml Q30M PRN IV Hypoglycemia 08/11/18 14:30 09/10/18 14:29 08/12/18 21:01 Duloxetine HCl (Cymbalta) 40 mg DAILY ORAL 08/12/18 09:00 09/02/18 08:59 08/14/18 08:46 Epoetin Jose (Epoetin Jose-EPBX(NON ESRD)) 10,000 unit WED-WED-WED SUBQ 08/12/18 21:00 09/02/18 20:59 08/12/18 21:07 Heparin Sodium (Porcine) (Heparin 5000 units/ml) 5,000 units EVERY 12 HOURS SUBQ 08/11/18 21:00 08/28/18 08:59 08/14/18 08:47 Insulin Aspart (NovoLOG) BEFORE MEALS AND HS SUBQ 08/11/18 16:30 09/10/18 11:29 08/14/18 11:56 Insulin Aspart (NovoLOG) 5 units NOVOTIAC SUBQ 08/11/18 16:50 09/10/18 07:59 08/14/18 11:56 Insulin Detemir (Levemir) 10 units BID SUBQ 08/14/18 09:00 09/10/18 08:59 08/14/18 08:47 Pantoprazole (Protonix) 40 mg BIAC ORAL 08/11/18 16:30 09/10/18 16:29 08/14/18 06:51 Quetiapine Fumarate (SEROquel) 25 mg Q12HR ORAL 08/11/18 21:00 09/08/18 12:14 08/14/18 08:46 Quetiapine Fumarate (SEROquel) 25 mg Q6H PRN ORAL For Anxiety 08/11/18 14:30 08/31/18 14:29 Sevelamer Carbonate (Renvela) 800 mg THREE TIMES A DAY ORAL 08/13/18 09:00 09/12/18 08:59 08/14/18 12:00 Sodium Chloride 1,000 ml @ 75 mls/hr [id number] IV 08/11/18 14:30 09/09/18 14:29 08/14/18 08:48 Vitamin B Complex/ Vit C/Folic Acid (Nephrovite) 1 tab DAILY ORAL 08/12/18 09:00 08/29/18 08:59 08/14/18 08:46 Allergies: Coded Allergies: CEFEPIME (Verified Allergy, Intermediate, Rash, 03/01/18) Tolerates Carbapenem ROS Limited/Unobtainable: No Constitutional: Reports: no symptoms HEENT: Reports: no symptoms Cardiovascular: Reports: no symptoms Respiratory: Reports: no symptoms Gastrointestinal/Abdominal: Reports: no symptoms Genitourinary: Reports: no symptoms Neurologic/Psychiatric: Reports: no symptoms Subjective 63 YO M with history of diabetes I admitted with hyperglycemia and DKA. Cover for Int Med-Dr Rosado. Await acceptance to [facility] Objective Last Vital Signs Date Time Temp Pulse Resp B/P (MAP) Pulse Ox O2 Delivery O2 Flow Rate FiO2 08/14/18 12:00 99.1 84 16 107/72 99 Room Air 08/14/18 08:20 21 Laboratory Tests Test 08/14/18 14:50 White Blood Count 12.2 K/UL (4.8-10.8) H Red Blood Count 2.68 M/UL (4.70-6.10) L Hemoglobin 8.6 G/DL (14.2-18.0) L Hematocrit 26.3 % (42.0-52.0) L Mean Corpuscular Volume 98 FL (80-99) Mean Corpuscular Hemoglobin 32.2 PG (27.0-31.0) H Mean Corpuscular Hemoglobin Concent 32.8 G/DL (32.0-36.0) Red Cell Distribution Width 18.7 % (11.6-14.8) H Platelet Count 253 K/UL (150-450) Mean Platelet Volume 5.8 FL (6.5-10.1) L Neutrophils (%) (Auto) 77.8 % (45.0-75.0) H Lymphocytes (%) (Auto) 13.5 % (20.0-45.0) L Monocytes (%) (Auto) 7.0 % (1.0-10.0) Eosinophils (%) (Auto) 1.1 % (0.0-3.0) Basophils (%) (Auto) 0.6 % (0.0-2.0) Sodium Level Pending Potassium Level Pending Chloride Level Pending Carbon Dioxide Level Pending Blood Urea Nitrogen Pending Creatinine Pending Estimat Glomerular Filtration Rate Pending Glucose Level Pending Uric Acid Pending Calcium Level Pending Phosphorus Level Pending Magnesium Level Pending Total Bilirubin Pending Aspartate Amino Transf (AST/SGOT) Pending Alanine Aminotransferase (ALT/SGPT) Pending Alkaline Phosphatase Pending C-Reactive Protein, Quantitative Pending Pro-B-Type Natriuretic Peptide Pending Total Protein Pending Albumin Pending Globulin Pending Intake and Output 08/13/18 08/14/18 19:00 07:00 Intake Total 2200 ml 1065 ml Output Total 1900 ml 1750 ml Balance 300 ml -685 ml Intake Oral 240 ml IV Total 900 ml 825 ml Other 1300 ml Output Urine Total 1900 ml 1750 ml Objective GENERAL: The patient is awake and responsive but confused, in no acute distress. HEAD AND NECK: Pupils are equal and reactive to light. Extraocular movements are intact in the right eye. Left eye blindness, Neck was supple. No JVD. LUNGS: fair air entry. No wheezing or rales. HEART: S1 and S2. Distant heart sounds. No Murmur or gallops. ABDOMEN: Soft, nontender, and nontender. Suprapubic catheter was noted. EXTREMITIES: No cyanosis or clubbing. Bilateral lower extremity trace LE's edema. NEUROLOGIC: Cranial nerves II through XII grossly intact. Motor is 5/5 in all extremities. Gait was not assessed due to the patient's status. Assessment/Plan Assessment/Plan ASSESSMENT: 1. DKA. 2. Hypertension. 3. Dyslipidemia. 4. Diabetes type 1 with prior history of diabetic ketoacidosis. 5. Diabetic retinopathy of the left eye blindness. 6. End-stage renal disease secondary to diabetic nephrosclerosis. 7. Coronary artery disease with prior history of myocardial infarction. 8. 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 9. 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 10. Secondary hyperparathyroidism with vitamin D deficiency. 11. Anemia of chronic kidney disease. 12. Metabolic acidosis. 13. Depression with prior suicide attempt. 14. Acute encephalopathy due to toxic metabolic encephalopathy due to DKA. 15. Hyperkalemia PLAN: 1. Med/surg 2. Code status is DNR/DNI as per POLST in the chart. 3. Resume intermediate medications. 4. Follow up with Labs and culture. 5. Broad spectrum antibiotic with Meropenem. 6. DVT prophylaxis, heparin subcutaneous. 7. We will follow up with Dr. Delgado with critical care , Dr. Chambers from Nephrology and Dr. Rich Wick from Infectious Disease. 8. We will follow up with the cultures and laboratory in the morning. 9. Better control with Levemir and Insulin sliding scale per endocrinology 10. Discharge planning: SNF when bed available. Unable to return to [facility] 11. Kayexalate for hyperkalemia Jose Glasgow MD Aug 14, 2018 15:52
[2018-08-14 15:55] LABS: ANION GAP 13 mmol/L (5-15); BLOOD UREA NITROGEN 81 mg/dL (7-18); CALCIUM 8.6 MG/DL (8.5-10.1); CARBON DIOXIDE 17 MMOL/L (21-32); CHLORIDE 105 MMOL/L (98-107); CREATININE 6.9 MG/DL (0.55-1.30); POTASSIUM 4.3 MMOL/L (3.5-5.1); SODIUM 135 MMOL/L (136-145)
[2018-08-14 16:00] VITALS: BP 125/58
[2018-08-14 16:06] LABS: ALANINE AMINOTRANSFERASE 13 U/L (12-78); ALBUMIN 2.1 G/DL (3.4-5.0); ALBUMIN/GLOBULIN RATIO 0.5 (1.0-2.7); ALKALINE PHOSPHATASE 81 U/L (46-116); ASPARTATE AMINO TRANSFERASE 9 U/L (15-37); BILIRUBIN,TOTAL 0.5 MG/DL (0.2-1.0); PHOSPHORUS 4.4 MG/DL (2.5-4.9)
--- NOTE | 2018-08-14 19:11 | NUR ---
HAND-OFF: Report given to NICOLE Stinson.
--- NOTE | 2018-08-14 19:45 | NUR ---
NURSE NOTES: Received patient in bed, alseep. On RA, no SOB, no acute distress, no c/o pain. 22G IV on L foot intact, patent running IVF. Bed in lowest position, locked, alarms on. Call light in reach.
[2018-08-14 20:00] VITALS: BP 145/97
--- NOTE | 2018-08-14 20:19 | NUR ---
NURSE NOTES: Patient noted with high blood sugar at 528 with no other hyperglycemic sx. Informed Dr Jacques and received order for onetime 20 units Novolog. carried out. Stat blood glucose ordered.
[2018-08-14] MEDS ORDERED: NovoLOG Insulin Flexpen SUBQ SCH (20:30)
--- NOTE | 2018-08-14 21:42 | General Progress Note ---
Assessment/Plan Problem List: (1) encephalopathy due to metabolic do (2) Major depressive disorder ICD Codes: F32.9 - Major depressive disorder, single episode, unspecified SNOMED: 015728061 Assessment/Plan cont Cymbalta 40mg qam seroquel 25mg q6hr prn agitation seroquel 25mg po bid provided ro/st Subjective Neurologic/Psychiatric: Reports: anxiety, depressed Allergies: Coded Allergies: CEFEPIME (Verified Allergy, Intermediate, Rash, 03/01/18) Tolerates Carbapenem Subjective the pt is irritable and depressed the pt s mental condition is the same high bs Objective Last 24 Hour Vital Signs Date Time Temp Pulse Resp B/P (MAP) Pulse Ox O2 Delivery O2 Flow Rate FiO2 08/14/18 16:00 98.0 90 18 125/58 97 Room Air 08/14/18 12:00 99.1 84 16 107/72 99 Room Air 08/14/18 09:00 Room Air 08/14/18 08:20 112 20 Room Air 21 08/14/18 08:00 97.2 94 18 120/80 99 Room Air 08/14/18 04:00 97.3 87 18 111/75 97 Room Air 08/14/18 00:00 97.7 79 18 137/71 96 Room Air Intake and Output 08/13/18 08/14/18 19:00 07:00 Intake Total 2200 ml 1065 ml Output Total 1900 ml 1750 ml Balance 300 ml -685 ml Intake Oral 240 ml IV Total 900 ml 825 ml Other 1300 ml Output Urine Total 1900 ml 1750 ml Laboratory Tests 08/14/18 14:50: White Blood Count 12.2H, Red Blood Count 2.68L, Hemoglobin 8.6L, Hematocrit 26.3L, Mean Corpuscular Volume 98, Mean Corpuscular Hemoglobin 32.2H, Mean Corpuscular Hemoglobin Concent 32.8, Red Cell Distribution Width 18.7H, Platelet Count 253, Mean Platelet Volume 5.8L, Neutrophils (%) (Auto) 77.8H, Lymphocytes (%) (Auto) 13.5L, Monocytes (%) (Auto) 7.0, Eosinophils (%) (Auto) 1.1, Basophils (%) (Auto) 0.6, Sodium Level 135L, Potassium Level 4.3, Chloride Level 105, Carbon Dioxide Level 17L, Anion Gap 13, Blood Urea Nitrogen 81H, Creatinine 6.9H, Estimat Glomerular Filtration Rate 8.1, Glucose Level 93, Uric Acid 9.3H, Calcium Level 8.6, Phosphorus Level 4.4, Magnesium Level 2.3, Total Bilirubin 0.5, Aspartate Amino Transf (AST/SGOT) 9L, Alanine Aminotransferase ( ALT/SGPT) 13, Alkaline Phosphatase 81, C-Reactive Protein, Quantitative 7.2H, Pro-B-Type Natriuretic Peptide 4458H, Total Protein 6.1L, Albumin 2.1L, Globulin 4.0, Albumin/Globulin Ratio 0.5L 08/14/18 20:16: Glucose Level 618#*H Height (Feet): 6 Height (Inches): 0.00 Weight (Pounds): 148 General Appearance: WD/WN, no apparent distress, alert Neurologic: depressed affect Fatmata Lu MD Aug 14, 2018 21:42
--- NOTE | 2018-08-14 22:30 | NUR ---
NURSE NOTES: Current blood glucose noted at 565. 20 unit one time Novolog given at 2030. No other s/sx of hyperglycemia noted. Patient is awake and alert. Will continue monitor closely.
[2018-08-15] VITALS: BP 112/55
--- NOTE | 2018-08-15 01:00 | NUR ---
NURSE NOTES: Current blood sugar noted at 353. No change of condition noted. Will continue monitor closely.
[2018-08-15 04:00] VITALS: BP 133/70
--- NOTE | 2018-08-15 05:00 | NUR ---
NURSE NOTES: Patient noted with mild redness, swelling, hot to touch, and mild pain to touch on R forearm and hand. Two closed blisters noted on old IV removed site. Elevated on pillow. Patient refused pain med. Vitals stable. Pictures taken, uploaded. Will continue monitor closely.
[2018-08-15] MEDS: NovoLOG Insulin Flexpen SUBQ SCH ×7 (06:09→20:47)
--- NOTE | 2018-08-15 06:38 | General Progress Note ---
Assessment/Plan Problem List: (1) DKA (diabetic ketoacidoses) ICD Codes: E13.10 - DKA (diabetic ketoacidoses) SNOMED: 10845539 Qualifiers: Qualified Codes: E10.10 - Type 1 diabetes mellitus with ketoacidosis without coma (2) CKD (chronic kidney disease), stage III ICD Codes: N18.3 - CKD (chronic kidney disease), stage III SNOMED: 483929408 (3) encephalopathy due to metabolic do (4) Pulmonary HTN ICD Codes: I27.0 - Pulmonary HTN SNOMED: 32077778 Assessment/Plan increase Levemir to 12 units bid - do not hold without notifying me increase Novolog to 6 units ac tid continue NISS ac / hs Subjective ROS Limited/Unobtainable: Yes Allergies: Coded Allergies: CEFEPIME (Verified Allergy, Intermediate, Rash, 03/01/18) Tolerates Carbapenem Subjective glucose spiked last night again Objective Last 24 Hour Vital Signs Date Time Temp Pulse Resp B/P (MAP) Pulse Ox O2 Delivery O2 Flow Rate FiO2 08/15/18 04:00 99.3 96 19 133/70 98 Room Air 08/15/18 02:00 99.7 08/15/18 00:54 89 20 Room Air 08/15/18 00:00 99.8 90 19 112/55 98 Room Air 08/14/18 21:00 Room Air 08/14/18 20:00 99.2 104 18 145/97 97 Room Air 08/14/18 16:00 98.0 90 18 125/58 97 Room Air 08/14/18 12:00 99.1 84 16 107/72 99 Room Air 08/14/18 09:00 Room Air 08/14/18 08:20 112 20 Room Air 21 08/14/18 08:00 97.2 94 18 120/80 99 Room Air Intake and Output 08/14/18 08/15/18 19:00 07:00 Intake Total 756 ml 825 ml Output Total 1600 ml 1400 ml Balance -844 ml -575 ml Intake Oral 456 ml IV Total 300 ml 825 ml Output Urine Total 1600 ml 1400 ml # Voids 1 1 Laboratory Tests 08/14/18 14:50: White Blood Count 12.2H, Red Blood Count 2.68L, Hemoglobin 8.6L, Hematocrit 26.3L, Mean Corpuscular Volume 98, Mean Corpuscular Hemoglobin 32.2H, Mean Corpuscular Hemoglobin Concent 32.8, Red Cell Distribution Width 18.7H, Platelet Count 253, Mean Platelet Volume 5.8L, Neutrophils (%) (Auto) 77.8H, Lymphocytes (%) (Auto) 13.5L, Monocytes (%) (Auto) 7.0, Eosinophils (%) (Auto) 1.1, Basophils (%) (Auto) 0.6, Sodium Level 135L, Potassium Level 4.3, Chloride Level 105, Carbon Dioxide Level 17L, Anion Gap 13, Blood Urea Nitrogen 81H, Creatinine 6.9H, Estimat Glomerular Filtration Rate 8.1, Glucose Level 93, Uric Acid 9.3H, Calcium Level 8.6, Phosphorus Level 4.4, Magnesium Level 2.3, Total Bilirubin 0.5, Aspartate Amino Transf (AST/SGOT) 9L, Alanine Aminotransferase ( ALT/SGPT) 13, Alkaline Phosphatase 81, C-Reactive Protein, Quantitative 7.2H, Pro-B-Type Natriuretic Peptide 4458H, Total Protein 6.1L, Albumin 2.1L, Globulin 4.0, Albumin/Globulin Ratio 0.5L 08/14/18 20:16: Glucose Level 618#*H Height (Feet): 6 Height (Inches): 0.00 Weight (Pounds): 151 General Appearance: no apparent distress Neck: normal alignment Cardiovascular: normal rate Respiratory/Chest: lungs clear Abdomen: normal bowel sounds Pelvis: normal external exam Objective Current Medications Medications (Trade) Dose Ordered Sig/Dunia Route PRN Reason Start Time Stop Time Status Last Admin Dose Admin Albuterol/ Ipratropium (Albuterol/ Ipratropium) 3 ml Q4H PRN HHN Shortness of Breath 08/13/18 14:30 08/18/18 14:29 Dextrose (Dextrose 50%) 25 ml Q30M PRN IV Hypoglycemia 08/11/18 14:30 09/10/18 14:29 08/13/18 06:06 Dextrose (Dextrose 50%) 50 ml Q30M PRN IV Hypoglycemia 08/11/18 14:30 09/10/18 14:29 08/12/18 21:01 Duloxetine HCl (Cymbalta) 40 mg DAILY ORAL 08/12/18 09:00 09/02/18 08:59 08/14/18 08:46 Epoetin Jose (Epoetin Jose-EPBX(NON ESRD)) 10,000 unit WED-WED-WED SUBQ 08/12/18 21:00 09/02/18 20:59 08/12/18 21:07 Heparin Sodium (Porcine) (Heparin 5000 units/ml) 5,000 units EVERY 12 HOURS SUBQ 08/11/18 21:00 08/28/18 08:59 08/14/18 20:46 Insulin Aspart (NovoLOG) BEFORE MEALS AND HS SUBQ 08/11/18 16:30 09/10/18 11:29 08/15/18 06:09 Insulin Aspart (NovoLOG) 5 units NOVOTIAC SUBQ 08/11/18 16:50 09/10/18 07:59 08/15/18 06:09 Insulin Detemir (Levemir) 10 units BID SUBQ 08/14/18 09:00 09/10/18 08:59 08/14/18 17:23 Pantoprazole (Protonix) 40 mg BIAC ORAL 08/11/18 16:30 09/10/18 16:29 08/15/18 06:08 Quetiapine Fumarate (SEROquel) 25 mg Q12HR ORAL 08/11/18 21:00 09/08/18 12:14 08/14/18 20:42 Quetiapine Fumarate (SEROquel) 25 mg Q6H PRN ORAL For Anxiety 08/11/18 14:30 08/31/18 14:29 Sevelamer Carbonate (Renvela) 800 mg THREE TIMES A DAY ORAL 08/13/18 09:00 09/12/18 08:59 08/14/18 17:22 Sodium Chloride 1,000 ml @ 75 mls/hr [id number] IV 08/11/18 14:30 09/09/18 14:29 08/14/18 23:30 Vitamin B Complex/ Vit C/Folic Acid (Nephrovite) 1 tab DAILY ORAL 08/12/18 09:00 08/29/18 08:59 08/14/18 08:46 Item Value Date Time Bedside Blood Glucose 344 mg/dl H 08/15/18 0617 Bedside Blood Glucose 528 mg/dl H 08/14/18 2100 Bedside Blood Glucose 157 mg/dl H 08/14/18 1724 Bedside Blood Glucose 205 mg/dl H 08/14/18 1156 Bedside Blood Glucose 298 mg/dl H 08/14/18 0847 Bedside Blood Glucose 298 mg/dl H 08/14/18 0650 [place] Jacques MD Aug 15, 2018 06:38
--- NOTE | 2018-08-15 07:41 | NUR ---
HAND-OFF: Report given to NICOLE Mak.
--- NOTE | 2018-08-15 07:44 | NUR ---
NURSE NOTES: Received patient from NICOLE Stinson. Patient in bed, in room air, not in respiratory distress.IV line G 22 on left foot, intact, right forearm red, swollen. Bed in the lowest position, locked, call light within reach,will continue to monitor patient.
--- NOTE | 2018-08-15 07:48 | NUR ---
NURSE NOTES: Received patient from Shantell RIVERA, patient is resting in bed, no distress noted, bed is locked and in lowest position, call light within reach, will continue to monitor with Roro RIVERA.
[2018-08-15 08:00] VITALS: BP 113/50
[2018-08-15] MEDS: Heparin 5000 units/ml inj SUBQ SCH ×3 (09:00→20:43)
[2018-08-15] MEDS: Nephrovite tab (Rena-Vite) ORAL SCH (09:08)
[2018-08-15] MEDS: Levemir Flexpen SUBQ SCH ×2 (09:13→17:46)
[2018-08-15 10:17] LABS: ANION GAP 13 mmol/L (5-15); BLOOD UREA NITROGEN 80 mg/dL (7-18); CALCIUM 8.4 MG/DL (8.5-10.1); CARBON DIOXIDE 16 MMOL/L (21-32); CHLORIDE 105 MMOL/L (98-107); CREATININE 6.8 MG/DL (0.55-1.30); POTASSIUM 4.2 MMOL/L (3.5-5.1); SODIUM 134 MMOL/L (136-145)
[2018-08-15 10:24] LABS: BASOPHILS % (AUTO) 0.7 % (0.0-2.0); EOSINOPHILS % (AUTO) 1.8 % (0.0-3.0); HEMOGLOBIN 8.2 G/DL (14.2-18.0); LYMPHOCYTES % (AUTO) 13.3 % (20.0-45.0); MEAN CORPUSCULAR VOLUME 99 FL (80-99); MONOCYTES % (AUTO) 8.1 % (1.0-10.0); PLATELET COUNT 232 K/UL (150-450); RED BLOOD COUNT 2.63 M/UL (4.70-6.10); WHITE BLOOD COUNT 9.4 K/UL (4.8-10.8)
--- NOTE | 2018-08-15 10:30 | Urology Progress Note ---
Assessment/Plan Assessment/Plan 1. Urinary retention. 2. Neurogenic bladder. 3. History of chronic suprapubic tube. 4. BPH history. 5. History of end-stage renal disease. 6. Hematuria. 7. Pyuria. 8. Proteinuria. 9. Renal cysts. monitor clinically keep sp tube, last exchanged 08/01 hand irrigated and do PRN cath secured to pt's leg s/p abx recheck urine cx at some point Subjective Allergies: Coded Allergies: CEFEPIME (Verified Allergy, Intermediate, Rash, 03/01/18) Tolerates Carbapenem Subjective all noted, new sp tube draining well, occasional leakage Objective Last 24 Hour Vital Signs Date Time Temp Pulse Resp B/P (MAP) Pulse Ox O2 Delivery O2 Flow Rate FiO2 08/15/18 09:00 Room Air 08/15/18 08:00 97.2 74 20 113/50 97 Room Air 08/15/18 07:47 82 20 Room Air 08/15/18 04:00 99.3 96 19 133/70 98 Room Air 08/15/18 02:00 99.7 08/15/18 00:54 89 20 Room Air 21 08/15/18 00:00 99.8 90 19 112/55 98 Room Air 08/14/18 21:00 Room Air 08/14/18 20:00 99.2 104 18 145/97 97 Room Air 08/14/18 16:00 98.0 90 18 125/58 97 Room Air 08/14/18 12:00 99.1 84 16 107/72 99 Room Air Intake and Output 08/14/18 08/15/18 18:59 06:59 Intake Total 756 ml 900 ml Output Total 1600 ml 1400 ml Balance -844 ml -500 ml Intake Oral 456 ml IV Total 300 ml 900 ml Output Urine Total 1600 ml 1400 ml # Voids 1 1 Microbiology Date/Time Source Procedure Growth Status 07/29/18 05:29 Blood Blood Culture - Final NO GROWTH AFTER 5 DAYS Complete 07/29/18 00:30 Nasal Nares MRSA Culture - Final Staphylococcus Aureus - Mrsa Complete 07/29/18 05:15 Urine,Clean Catch Urine Culture - Final Gram Positive Cocci Complete 07/29/18 00:30 Rectum VRE Culture - Final Enterococcus Faecalis - Vre Enterococcus Faecium - Vre Complete Current Medications Medications (Trade) Dose Ordered Sig/Dunia Route PRN Reason Start Time Stop Time Status Last Admin Dose Admin Albuterol/ Ipratropium (Albuterol/ Ipratropium) 3 ml Q4H PRN HHN Shortness of Breath 08/13/18 14:30 08/18/18 14:29 Dextrose (Dextrose 50%) 25 ml Q30M PRN IV Hypoglycemia 08/11/18 14:30 09/10/18 14:29 08/13/18 06:06 Dextrose (Dextrose 50%) 50 ml Q30M PRN IV Hypoglycemia 08/11/18 14:30 09/10/18 14:29 08/12/18 21:01 Duloxetine HCl (Cymbalta) 40 mg DAILY ORAL 08/12/18 09:00 09/02/18 08:59 08/15/18 09:12 Epoetin Jose (Epoetin Jose-EPBX(NON ESRD)) 10,000 unit WED-WED-WED SUBQ 08/12/18 21:00 09/02/18 20:59 08/12/18 21:07 Heparin Sodium (Porcine) (Heparin 5000 units/ml) 5,000 units EVERY 12 HOURS SUBQ 08/11/18 21:00 08/28/18 08:59 08/14/18 20:46 Insulin Aspart (NovoLOG) BEFORE MEALS AND HS SUBQ 08/11/18 16:30 09/10/18 11:29 08/15/18 06:09 Insulin Aspart (NovoLOG) 6 units NOVOTIAC SUBQ 08/15/18 11:50 09/10/18 07:59 Insulin Detemir (Levemir) 12 units BID SUBQ 08/15/18 09:00 09/10/18 08:59 08/15/18 09:13 Pantoprazole (Protonix) 40 mg BIAC ORAL 08/11/18 16:30 09/10/18 16:29 08/15/18 06:08 Quetiapine Fumarate (SEROquel) 25 mg Q12HR ORAL 08/11/18 21:00 09/08/18 12:14 08/15/18 09:12 Quetiapine Fumarate (SEROquel) 25 mg Q6H PRN ORAL For Anxiety 08/11/18 14:30 08/31/18 14:29 Sevelamer Carbonate (Renvela) 800 mg THREE TIMES A DAY ORAL 08/13/18 09:00 09/12/18 08:59 08/15/18 09:08 Sodium Chloride 1,000 ml @ 75 mls/hr [id number] IV 08/11/18 14:30 09/09/18 14:29 08/14/18 23:30 Vitamin B Complex/ Vit C/Folic Acid (Nephrovite) 1 tab DAILY ORAL 08/12/18 09:00 08/29/18 08:59 08/15/18 09:08 Laboratory Tests 08/14/18 14:50: White Blood Count 12.2H, Red Blood Count 2.68L, Hemoglobin 8.6L, Hematocrit 26.3L, Mean Corpuscular Volume 98, Mean Corpuscular Hemoglobin 32.2H, Mean Corpuscular Hemoglobin Concent 32.8, Red Cell Distribution Width 18.7H, Platelet Count 253, Mean Platelet Volume 5.8L, Neutrophils (%) (Auto) 77.8H, Lymphocytes (%) (Auto) 13.5L, Monocytes (%) (Auto) 7.0, Eosinophils (%) (Auto) 1.1, Basophils (%) (Auto) 0.6, Sodium Level 135L, Potassium Level 4.3, Chloride Level 105, Carbon Dioxide Level 17L, Anion Gap 13, Blood Urea Nitrogen 81H, Creatinine 6.9H, Estimat Glomerular Filtration Rate 8.1, Glucose Level 93, Uric Acid 9.3H, Calcium Level 8.6, Phosphorus Level 4.4, Magnesium Level 2.3, Total Bilirubin 0.5, Aspartate Amino Transf (AST/SGOT) 9L, Alanine Aminotransferase ( ALT/SGPT) 13, Alkaline Phosphatase 81, C-Reactive Protein, Quantitative 7.2H, Pro-B-Type Natriuretic Peptide 4458H, Total Protein 6.1L, Albumin 2.1L, Globulin 4.0, Albumin/Globulin Ratio 0.5L 08/14/18 20:16: Glucose Level 618#*H 08/15/18 10:00: White Blood Count 9.4, Red Blood Count 2.63L, Hemoglobin 8.2L, Hematocrit 26.0L , Mean Corpuscular Volume 99, Mean Corpuscular Hemoglobin 31.3H, Mean Corpuscular Hemoglobin Concent 31.7L, Red Cell Distribution Width 19.0H, Platelet Count 232, Mean Platelet Volume 5.9L, Neutrophils (%) (Auto) 76.0H, Lymphocytes (%) (Auto) 13.3L, Monocytes (%) (Auto) 8.1, Eosinophils (%) (Auto) 1.8, Basophils (%) (Auto) 0.7, Sodium Level 134L, Potassium Level 4.2, Chloride Level 105, Carbon Dioxide Level 16L, Anion Gap 13, Blood Urea Nitrogen 80H, Creatinine 6.8H, Estimat Glomerular Filtration Rate 8.2, Glucose Level 161#H, Calcium Level 8.4L Height (Feet): 6 Height (Inches): 0.00 Weight (Pounds): 151 Objective exam stable Ye Rios MD Aug 15, 2018 10:30
[2018-08-15 12:00] VITALS: BP 145/97
--- NOTE | 2018-08-15 12:12 | Infectious Diseases Prog Note ---
Assessment/Plan Assessment/Plan Severe sepsis -likely 2ry to UTI- SP, s/p rx -u.a wbc tntc, nit neg, luek +3; ucx <10k GPC -Bcx Neg -CXR: Suspected atelectasis or scarring right Afebrile Leukocytosis, SP DKA RVIKA, improving hx of recent sepsis 2ry to UTI and bacteremia 07/08/18 UCx - P.a. MDR and Providencia 07/08/18 BCx ESBL Proteus and K. pneumo Dm2 HLD MDD with suicidal attempts in the past w/ resultant chronic encephalopathy CAD/MN BPH anemia asthma colonic polyps ESRD s/p renal and pancreas tx ~10 yrs ago now CKD 4 ConS bacteremia/line infection urinary retention s/p suprapubic catheter 09/2017 recurrent hematuria multiple hospital admissions recurrent UTI DNR Plan: - Continue to monitor off abx -08/02 SP Meropenem d# 5 07/29 SP one dose Amikacin -07/22 SP Meropenem, #14 - f/u cx -Monitor CBC/CMP, temperatures Subjective Allergies: Coded Allergies: CEFEPIME (Verified Allergy, Intermediate, Rash, 03/01/18) Tolerates Carbapenem Subjective Afebrile No leukocytosis Objective Vital Signs Last 24 Hour Vital Signs Date Time Temp Pulse Resp B/P (MAP) Pulse Ox O2 Delivery O2 Flow Rate FiO2 08/15/18 09:00 Room Air 08/15/18 08:00 97.2 74 20 113/50 97 Room Air 08/15/18 07:47 82 20 Room Air 08/15/18 04:00 99.3 96 19 133/70 98 Room Air 08/15/18 02:00 99.7 08/15/18 00:54 89 20 Room Air 08/15/18 00:00 99.8 90 19 112/55 98 Room Air 08/14/18 21:00 Room Air 08/14/18 20:00 99.2 104 18 145/97 97 Room Air 08/14/18 16:00 98.0 90 18 125/58 97 Room Air Height (Feet): 6 Height (Inches): 0.00 Weight (Pounds): 151 Objective GEN: NAD HEENT: NCAT, MMM, EOMI Lungs: chest wall tender Heart: HR/BP stable, Abdomen: soft, non-tender, ND Extremities: no C/C/E Laboratory Tests Test 08/14/18 14:50 08/14/18 20:16 08/15/18 10:00 White Blood Count 12.2 K/UL (4.8-10.8) H 9.4 K/UL (4.8-10.8) Red Blood Count 2.68 M/UL (4.70-6.10) L 2.63 M/UL (4.70-6.10) L Hemoglobin 8.6 G/DL (14.2-18.0) L 8.2 G/DL (14.2-18.0) L Hematocrit 26.3 % (42.0-52.0) L 26.0 % (42.0-52.0) L Mean Corpuscular Volume 98 FL (80-99) 99 FL (80-99) Mean Corpuscular Hemoglobin 32.2 PG (27.0-31.0) H 31.3 PG (27.0-31.0) H Mean Corpuscular Hemoglobin Concent 32.8 G/DL (32.0-36.0) 31.7 G/DL (32.0-36.0) L Red Cell Distribution Width 18.7 % (11.6-14.8) H 19.0 % (11.6-14.8) H Platelet Count 253 K/UL (150-450) 232 K/UL (150-450) Mean Platelet Volume 5.8 FL (6.5-10.1) L 5.9 FL (6.5-10.1) L Neutrophils (%) (Auto) 77.8 % (45.0-75.0) H 76.0 % (45.0-75.0) H Lymphocytes (%) (Auto) 13.5 % (20.0-45.0) L 13.3 % (20.0-45.0) L Monocytes (%) (Auto) 7.0 % (1.0-10.0) 8.1 % (1.0-10.0) Eosinophils (%) (Auto) 1.1 % (0.0-3.0) 1.8 % (0.0-3.0) Basophils (%) (Auto) 0.6 % (0.0-2.0) 0.7 % (0.0-2.0) Sodium Level 135 MMOL/L (136-145) L 134 MMOL/L (136-145) L Potassium Level 4.3 MMOL/L (3.5-5.1) 4.2 MMOL/L (3.5-5.1) Chloride Level 105 MMOL/L (98-107) 105 MMOL/L (98-107) Carbon Dioxide Level 17 MMOL/L (21-32) L 16 MMOL/L (21-32) L Anion Gap 13 mmol/L (5-15) 13 mmol/L (5-15) Blood Urea Nitrogen 81 mg/dL (7-18) H 80 mg/dL (7-18) H Creatinine 6.9 MG/DL (0.55-1.30) H 6.8 MG/DL (0.55-1.30) H Estimat Glomerular Filtration Rate 8.1 mL/min (>60) 8.2 mL/min (>60) Glucose Level 93 MG/DL (74-106) 618 MG/DL (74-106) #*H 161 MG/DL (74-106) #H Uric Acid 9.3 MG/DL (2.6-7.2) H Calcium Level 8.6 MG/DL (8.5-10.1) 8.4 MG/DL (8.5-10.1) L Phosphorus Level 4.4 MG/DL (2.5-4.9) Magnesium Level 2.3 MG/DL (1.8-2.4) Total Bilirubin 0.5 MG/DL (0.2-1.0) Aspartate Amino Transf (AST/SGOT) 9 U/L (15-37) L Alanine Aminotransferase (ALT/SGPT) 13 U/L (12-78) Alkaline Phosphatase 81 U/L (46-116) C-Reactive Protein, Quantitative 7.2 mg/dL (0.00-0.90) H Pro-B-Type Natriuretic Peptide 4458 pg/mL (0-125) H Total Protein 6.1 G/DL (6.4-8.2) L Albumin 2.1 G/DL (3.4-5.0) L Globulin 4.0 g/dL Albumin/Globulin Ratio 0.5 (1.0-2.7) L Current Medications Medications (Trade) Dose Ordered Sig/Dunia Route PRN Reason Start Time Stop Time Status Last Admin Dose Admin Albuterol/ Ipratropium (Albuterol/ Ipratropium) 3 ml Q4H PRN HHN Shortness of Breath 08/13/18 14:30 08/18/18 14:29 Dextrose (Dextrose 50%) 25 ml Q30M PRN IV Hypoglycemia 08/11/18 14:30 09/10/18 14:29 08/13/18 06:06 Dextrose (Dextrose 50%) 50 ml Q30M PRN IV Hypoglycemia 08/11/18 14:30 09/10/18 14:29 08/12/18 21:01 Duloxetine HCl (Cymbalta) 40 mg DAILY ORAL 08/12/18 09:00 09/02/18 08:59 08/15/18 09:12 Epoetin Jose (Epoetin Jose-EPBX(NON ESRD)) 10,000 unit WED-WED-WED SUBQ 08/12/18 21:00 09/02/18 20:59 08/12/18 21:07 Heparin Sodium (Porcine) (Heparin 5000 units/ml) 5,000 units EVERY 12 HOURS SUBQ 08/11/18 21:00 08/28/18 08:59 08/14/18 20:46 Insulin Aspart (NovoLOG) BEFORE MEALS AND HS SUBQ 08/11/18 16:30 09/10/18 11:29 08/15/18 06:09 Insulin Aspart (NovoLOG) 6 units NOVOTIAC SUBQ 08/15/18 11:50 09/10/18 07:59 Insulin Detemir (Levemir) 12 units BID SUBQ 08/15/18 09:00 09/10/18 08:59 08/15/18 09:13 Pantoprazole (Protonix) 40 mg BIAC ORAL 08/11/18 16:30 09/10/18 16:29 08/15/18 06:08 Quetiapine Fumarate (SEROquel) 25 mg Q12HR ORAL 08/11/18 21:00 09/08/18 12:14 08/15/18 09:12 Quetiapine Fumarate (SEROquel) 25 mg Q6H PRN ORAL For Anxiety 08/11/18 14:30 08/31/18 14:29 Sevelamer Carbonate (Renvela) 800 mg THREE TIMES A DAY ORAL 08/13/18 09:00 09/12/18 08:59 08/15/18 09:08 Sodium Chloride 1,000 ml @ 75 mls/hr [id number] IV 08/11/18 14:30 09/09/18 14:29 08/15/18 12:02 Vitamin B Complex/ Vit C/Folic Acid (Nephrovite) 1 tab DAILY ORAL 08/12/18 09:00 08/29/18 08:59 08/15/18 09:08 William Caputo MD Aug 15, 2018 12:12
--- NOTE | 2018-08-15 12:35 | NUR ---
*-* DISCHARGE PLANNING *-* PATIENT HAS BEEN REFERRED TO: VANIA ARMSTRONG P:[phone] F:[phone]
--- NOTE | 2018-08-15 13:19 | Nephrology Progress Note ---
Assessment/Plan Problem List: (1) Acute on chronic renal failure (2) Bladder outlet obstruction (3) Anemia in chronic kidney disease (4) BPH (benign prostatic hypertrophy) (5) DKA (diabetic ketoacidoses) (6) Encephalopathy acute Assessment High Glucose now improved ESRD , in need of dialysis , refuses- presents with high K Encephalopathy , Metabolic Acidosis , Uremic and Diabetic Sever Anemia: Mixed etiology HTn, but presents with low BP Supra Pubic Cath, h/o UTI, BPH Psych disease CAD, elevated Troponin I s/p DKAs Plan no labs today Kayexelate for high K as needed Transfuse as needed Sugar control will do poorly in view of no dialysis plans DNR per orders Subjective ROS Limited/Unobtainable: No Constitutional: Reports: malaise, weakness Objective Objective Last 24 Hour Vital Signs Date Time Temp Pulse Resp B/P (MAP) Pulse Ox O2 Delivery O2 Flow Rate FiO2 08/15/18 12:00 99.2 100 18 145/97 98 Room Air 08/15/18 09:00 Room Air 08/15/18 08:00 97.2 74 20 113/50 97 Room Air 08/15/18 07:47 82 20 Room Air 21 08/15/18 04:00 99.3 96 19 133/70 98 Room Air 08/15/18 02:00 99.7 08/15/18 00:54 89 20 Room Air 21 08/15/18 00:00 99.8 90 19 112/55 98 Room Air 08/14/18 21:00 Room Air 08/14/18 20:00 99.2 104 18 145/97 97 Room Air 08/14/18 16:00 98.0 90 18 125/58 97 Room Air Intake and Output 08/14/18 08/15/18 18:59 06:59 Intake Total 756 ml 900 ml Output Total 1600 ml 1400 ml Balance -844 ml -500 ml Intake Oral 456 ml IV Total 300 ml 900 ml Output Urine Total 1600 ml 1400 ml # Voids 1 1 Laboratory Tests 08/14/18 14:50: White Blood Count 12.2H, Red Blood Count 2.68L, Hemoglobin 8.6L, Hematocrit 26.3L, Mean Corpuscular Volume 98, Mean Corpuscular Hemoglobin 32.2H, Mean Corpuscular Hemoglobin Concent 32.8, Red Cell Distribution Width 18.7H, Platelet Count 253, Mean Platelet Volume 5.8L, Neutrophils (%) (Auto) 77.8H, Lymphocytes (%) (Auto) 13.5L, Monocytes (%) (Auto) 7.0, Eosinophils (%) (Auto) 1.1, Basophils (%) (Auto) 0.6, Sodium Level 135L, Potassium Level 4.3, Chloride Level 105, Carbon Dioxide Level 17L, Anion Gap 13, Blood Urea Nitrogen 81H, Creatinine 6.9H, Estimat Glomerular Filtration Rate 8.1, Glucose Level 93, Uric Acid 9.3H, Calcium Level 8.6, Phosphorus Level 4.4, Magnesium Level 2.3, Total Bilirubin 0.5, Aspartate Amino Transf (AST/SGOT) 9L, Alanine Aminotransferase ( ALT/SGPT) 13, Alkaline Phosphatase 81, C-Reactive Protein, Quantitative 7.2H, Pro-B-Type Natriuretic Peptide 4458H, Total Protein 6.1L, Albumin 2.1L, Globulin 4.0, Albumin/Globulin Ratio 0.5L 08/14/18 20:16: Glucose Level 618#*H 08/15/18 10:00: White Blood Count 9.4, Red Blood Count 2.63L, Hemoglobin 8.2L, Hematocrit 26.0L , Mean Corpuscular Volume 99, Mean Corpuscular Hemoglobin 31.3H, Mean Corpuscular Hemoglobin Concent 31.7L, Red Cell Distribution Width 19.0H, Platelet Count 232, Mean Platelet Volume 5.9L, Neutrophils (%) (Auto) 76.0H, Lymphocytes (%) (Auto) 13.3L, Monocytes (%) (Auto) 8.1, Eosinophils (%) (Auto) 1.8, Basophils (%) (Auto) 0.7, Sodium Level 134L, Potassium Level 4.2, Chloride Level 105, Carbon Dioxide Level 16L, Anion Gap 13, Blood Urea Nitrogen 80H, Creatinine 6.8H, Estimat Glomerular Filtration Rate 8.2, Glucose Level 161#H, Calcium Level 8.4L Height (Feet): 6 Height (Inches): 0.00 Weight (Pounds): 151 General Appearance: no apparent distress Cardiovascular: other - variable Respiratory/Chest: decreased breath sounds Abdomen: soft Objective no change Luis Chambers MD Aug 15, 2018 13:19
[2018-08-15 13:40] LABS: ALANINE AMINOTRANSFERASE 11 U/L (12-78); ALBUMIN 1.9 G/DL (3.4-5.0); ALKALINE PHOSPHATASE 76 U/L (46-116); ASPARTATE AMINO TRANSFERASE 10 U/L (15-37); BILIRUBIN,DIRECT < 0.1 MG/DL (0.0-0.3); BILIRUBIN,TOTAL 0.3 MG/DL (0.2-1.0); PHOSPHORUS 5.1 MG/DL (2.5-4.9)
--- NOTE | 2018-08-15 15:02 | Pulmonology Progress Note ---
Assessment/Plan Problems: (1) Encephalopathy acute (2) DKA (diabetic ketoacidoses) (3) Anemia in chronic kidney disease (4) CKD (chronic kidney disease), stage III (5) Major depressive disorder (6) Bladder outlet obstruction (7) Suprapubic catheter Assessment/Plan doing better again creatinine lower doing better no new complains Bs better controlled pt refusing HD check electrolytes continue DNR dvt prophylaxis All medications and treatment were reviewed.med recon done, [facility] Subjective ROS Limited/Unobtainable: No Constitutional: Reports: no symptoms HEENT: Repors: no symptoms Respiratory: Reports: no symptoms Allergies: Coded Allergies: CEFEPIME (Verified Allergy, Intermediate, Rash, 03/01/18) Tolerates Carbapenem Objective Last 24 Hour Vital Signs Date Time Temp Pulse Resp B/P (MAP) Pulse Ox O2 Delivery O2 Flow Rate FiO2 08/15/18 12:00 99.2 100 18 145/97 98 Room Air 08/15/18 09:00 Room Air 08/15/18 08:00 97.2 74 20 113/50 97 Room Air 08/15/18 07:47 82 20 Room Air 08/15/18 04:00 99.3 96 19 133/70 98 Room Air 08/15/18 02:00 99.7 08/15/18 00:54 89 20 Room Air 21 08/15/18 00:00 99.8 90 19 112/55 98 Room Air 08/14/18 21:00 Room Air 08/14/18 20:00 99.2 104 18 145/97 97 Room Air 08/14/18 16:00 98.0 90 18 125/58 97 Room Air Intake and Output 08/14/18 08/15/18 18:59 06:59 Intake Total 756 ml 900 ml Output Total 1600 ml 1400 ml Balance -844 ml -500 ml Intake Oral 456 ml IV Total 300 ml 900 ml Output Urine Total 1600 ml 1400 ml # Voids 1 1 Objective General Appearance: WD/WN HEENT: normocephalic, atraumatic, anicteric Respiratory/Chest: chest wall non-tender, lungs clear Breasts: no masses Cardiovascular: normal peripheral pulses, normal rate Abdomen: normal bowel sounds, soft, non tender Extremities: no cyanosis Skin: no rash 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 Lymphatic: no neck adenopathy Laboratory Tests 08/14/18 20:16: Glucose Level 618#*H 08/15/18 10:00: Glucose Level 161#H, White Blood Count 9.4, Red Blood Count 2.63L, Hemoglobin 8.2L, Hematocrit 26.0L, Mean Corpuscular Volume 99, Mean Corpuscular Hemoglobin 31.3H, Mean Corpuscular Hemoglobin Concent 31.7L, Red Cell Distribution Width 19.0H, Platelet Count 232, Mean Platelet Volume 5.9L, Neutrophils (%) (Auto) 76.0H, Lymphocytes (%) (Auto) 13.3L, Monocytes (%) (Auto) 8.1, Eosinophils (%) ( Auto) 1.8, Basophils (%) (Auto) 0.7, Sodium Level 134L, Potassium Level 4.2, Chloride Level 105, Carbon Dioxide Level 16L, Anion Gap 13, Blood Urea Nitrogen 80H, Creatinine 6.8H, Estimat Glomerular Filtration Rate 8.2, Calcium Level 8.4L , Phosphorus Level 5.1H, Total Bilirubin 0.3, Direct Bilirubin < 0.1, Aspartate Amino Transf (AST/SGOT) 10L, Alanine Aminotransferase (ALT/SGPT) 11L, Alkaline Phosphatase 76, Total Protein 5.7L, Albumin 1.9L Current Medications Medications (Trade) Dose Ordered Sig/Dunia Route PRN Reason Start Time Stop Time Status Last Admin Dose Admin Albuterol/ Ipratropium (Albuterol/ Ipratropium) 3 ml Q4H PRN HHN Shortness of Breath 08/13/18 14:30 08/18/18 14:29 Dextrose (Dextrose 50%) 25 ml Q30M PRN IV Hypoglycemia 08/11/18 14:30 09/10/18 14:29 08/13/18 06:06 Dextrose (Dextrose 50%) 50 ml Q30M PRN IV Hypoglycemia 08/11/18 14:30 09/10/18 14:29 08/12/18 21:01 Duloxetine HCl (Cymbalta) 40 mg DAILY ORAL 08/12/18 09:00 09/02/18 08:59 08/15/18 09:12 Epoetin Jose (Epoetin Jose-EPBX(NON ESRD)) 10,000 unit WED-WED-WED SUBQ 08/12/18 21:00 09/02/18 20:59 08/12/18 21:07 Heparin Sodium (Porcine) (Heparin 5000 units/ml) 5,000 units EVERY 12 HOURS SUBQ 08/11/18 21:00 08/28/18 08:59 08/14/18 20:46 Insulin Aspart (NovoLOG) BEFORE MEALS AND HS SUBQ 08/11/18 16:30 09/10/18 11:29 08/15/18 11:40 Insulin Aspart (NovoLOG) 6 units NOVOTIAC SUBQ 08/15/18 11:50 09/10/18 07:59 Insulin Detemir (Levemir) 12 units BID SUBQ 08/15/18 09:00 09/10/18 08:59 08/15/18 09:13 Pantoprazole (Protonix) 40 mg BIAC ORAL 08/11/18 16:30 09/10/18 16:29 08/15/18 06:08 Quetiapine Fumarate (SEROquel) 25 mg Q12HR ORAL 08/11/18 21:00 09/08/18 12:14 08/15/18 09:12 Quetiapine Fumarate (SEROquel) 25 mg Q6H PRN ORAL For Anxiety 08/11/18 14:30 08/31/18 14:29 Sevelamer Carbonate (Renvela) 800 mg THREE TIMES A DAY ORAL 08/13/18 09:00 09/12/18 08:59 08/15/18 13:02 Sodium Chloride 1,000 ml @ 75 mls/hr [id number] IV 08/11/18 14:30 09/09/18 14:29 08/15/18 12:02 Vitamin B Complex/ Vit C/Folic Acid (Nephrovite) 1 tab DAILY ORAL 08/12/18 09:00 08/29/18 08:59 08/15/18 09:08 Esdras Delgado MD Aug 15, 2018 15:02
[2018-08-15 16:00] VITALS: BP 96/50
--- NOTE | 2018-08-15 18:58 | Internal Med Progress Note ---
Subjective Date of Service: Aug 15, 2018 Physician Name GlasgowJose Attending Physician Christopher Rosado MD Current Medications Medications (Trade) Dose Ordered Sig/Dunia Route PRN Reason Start Time Stop Time Status Last Admin Dose Admin Albuterol/ Ipratropium (Albuterol/ Ipratropium) 3 ml Q4H PRN HHN Shortness of Breath 08/13/18 14:30 08/18/18 14:29 Dextrose (Dextrose 50%) 25 ml Q30M PRN IV Hypoglycemia 08/11/18 14:30 09/10/18 14:29 08/13/18 06:06 Dextrose (Dextrose 50%) 50 ml Q30M PRN IV Hypoglycemia 08/11/18 14:30 09/10/18 14:29 08/12/18 21:01 Duloxetine HCl (Cymbalta) 40 mg DAILY ORAL 08/12/18 09:00 09/02/18 08:59 08/15/18 09:12 Epoetin Jose (Epoetin Jose-EPBX(NON ESRD)) 10,000 unit WED-WED-WED SUBQ 08/12/18 21:00 09/02/18 20:59 08/12/18 21:07 Heparin Sodium (Porcine) (Heparin 5000 units/ml) 5,000 units EVERY 12 HOURS SUBQ 08/11/18 21:00 08/28/18 08:59 08/14/18 20:46 Insulin Aspart (NovoLOG) BEFORE MEALS AND HS SUBQ 08/11/18 16:30 09/10/18 11:29 08/15/18 17:42 Insulin Aspart (NovoLOG) 6 units NOVOTIAC SUBQ 08/15/18 11:50 09/10/18 07:59 Insulin Detemir (Levemir) 12 units BID SUBQ 08/15/18 09:00 09/10/18 08:59 08/15/18 17:46 Pantoprazole (Protonix) 40 mg BIAC ORAL 08/11/18 16:30 09/10/18 16:29 08/15/18 17:40 Quetiapine Fumarate (SEROquel) 25 mg Q12HR ORAL 08/11/18 21:00 09/08/18 12:14 08/15/18 09:12 Quetiapine Fumarate (SEROquel) 25 mg Q6H PRN ORAL For Anxiety 08/11/18 14:30 08/31/18 14:29 Sevelamer Carbonate (Renvela) 800 mg THREE TIMES A DAY ORAL 08/13/18 09:00 09/12/18 08:59 08/15/18 17:40 Sodium Chloride 1,000 ml @ 75 mls/hr [id number] IV 08/11/18 14:30 09/09/18 14:29 08/15/18 12:02 Vitamin B Complex/ Vit C/Folic Acid (Nephrovite) 1 tab DAILY ORAL 08/12/18 09:00 08/29/18 08:59 08/15/18 09:08 Allergies: Coded Allergies: CEFEPIME (Verified Allergy, Intermediate, Rash, 03/01/18) Tolerates Carbapenem ROS Limited/Unobtainable: No Constitutional: Reports: no symptoms HEENT: Reports: no symptoms Cardiovascular: Reports: no symptoms Respiratory: Reports: no symptoms Gastrointestinal/Abdominal: Reports: no symptoms Genitourinary: Reports: no symptoms Neurologic/Psychiatric: Reports: no symptoms Subjective 63 YO M with history of diabetes I admitted with hyperglycemia and DKA. Cover for Int Med-Dr Rosado. Await acceptance to [facility] Objective Last Vital Signs Date Time Temp Pulse Resp B/P (MAP) Pulse Ox O2 Delivery O2 Flow Rate FiO2 08/15/18 16:00 98.9 75 18 96/50 97 Room Air 08/15/18 07:47 21 Laboratory Tests Test 08/14/18 20:16 08/15/18 10:00 Glucose Level 618 MG/DL (74-106) #*H 161 MG/DL (74-106) #H White Blood Count 9.4 K/UL (4.8-10.8) Red Blood Count 2.63 M/UL (4.70-6.10) L Hemoglobin 8.2 G/DL (14.2-18.0) L Hematocrit 26.0 % (42.0-52.0) L Mean Corpuscular Volume 99 FL (80-99) Mean Corpuscular Hemoglobin 31.3 PG (27.0-31.0) H Mean Corpuscular Hemoglobin Concent 31.7 G/DL (32.0-36.0) L Red Cell Distribution Width 19.0 % (11.6-14.8) H Platelet Count 232 K/UL (150-450) Mean Platelet Volume 5.9 FL (6.5-10.1) L Neutrophils (%) (Auto) 76.0 % (45.0-75.0) H Lymphocytes (%) (Auto) 13.3 % (20.0-45.0) L Monocytes (%) (Auto) 8.1 % (1.0-10.0) Eosinophils (%) (Auto) 1.8 % (0.0-3.0) Basophils (%) (Auto) 0.7 % (0.0-2.0) Sodium Level 134 MMOL/L (136-145) L Potassium Level 4.2 MMOL/L (3.5-5.1) Chloride Level 105 MMOL/L (98-107) Carbon Dioxide Level 16 MMOL/L (21-32) L Anion Gap 13 mmol/L (5-15) Blood Urea Nitrogen 80 mg/dL (7-18) H Creatinine 6.8 MG/DL (0.55-1.30) H Estimat Glomerular Filtration Rate 8.2 mL/min (>60) Calcium Level 8.4 MG/DL (8.5-10.1) L Phosphorus Level 5.1 MG/DL (2.5-4.9) H Total Bilirubin 0.3 MG/DL (0.2-1.0) Direct Bilirubin < 0.1 MG/DL (0.0-0.3) Aspartate Amino Transf (AST/SGOT) 10 U/L (15-37) L Alanine Aminotransferase (ALT/SGPT) 11 U/L (12-78) L Alkaline Phosphatase 76 U/L (46-116) Total Protein 5.7 G/DL (6.4-8.2) L Albumin 1.9 G/DL (3.4-5.0) L Intake and Output 08/14/18 08/15/18 19:00 07:00 Intake Total 756 ml 825 ml Output Total 1600 ml 1400 ml Balance -844 ml -575 ml Intake Oral 456 ml IV Total 300 ml 825 ml Output Urine Total 1600 ml 1400 ml # Voids 1 1 Objective GENERAL: The patient is awake and responsive but confused, in no acute distress. HEAD AND NECK: Pupils are equal and reactive to light. Extraocular movements are intact in the right eye. Left eye blindness, Neck was supple. No JVD. LUNGS: fair air entry. No wheezing or rales. HEART: S1 and S2. Distant heart sounds. No Murmur or gallops. ABDOMEN: Soft, nontender, and nontender. Suprapubic catheter was noted. EXTREMITIES: No cyanosis or clubbing. Bilateral lower extremity trace LE's edema. NEUROLOGIC: Cranial nerves II through XII grossly intact. Motor is 5/5 in all extremities. Gait was not assessed due to the patient's status. Assessment/Plan Assessment/Plan ASSESSMENT: 1. DKA. 2. Hypertension. 3. Dyslipidemia. 4. Diabetes type 1 with prior history of diabetic ketoacidosis. 5. Diabetic retinopathy of the left eye blindness. 6. End-stage renal disease secondary to diabetic nephrosclerosis. 7. Coronary artery disease with prior history of myocardial infarction. 8. 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 9. 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 10. Secondary hyperparathyroidism with vitamin D deficiency. 11. Anemia of chronic kidney disease. 12. Metabolic acidosis. 13. Depression with prior suicide attempt. 14. Acute encephalopathy due to toxic metabolic encephalopathy due to DKA. 15. Hyperkalemia PLAN: 1. Med/surg 2. Code status is DNR/DNI as per POL in the chart. 3. Resume skilled nursing medications. 4. Follow up with Labs and culture. 5. Broad spectrum antibiotic with Meropenem. 6. DVT prophylaxis, heparin subcutaneous. 7. We will follow up with Dr. Delgado with critical care , Dr. Chambers from Nephrology and Dr. Rich Wick from Infectious Disease. 8. We will follow up with the cultures and laboratory in the morning. 9. Better control with Levemir and Insulin sliding scale per endocrinology 10. Discharge planning: [facility] when bed available. 11. Kayexalate for hyperkalemia Jose Glasgow MD Aug 15, 2018 18:58
--- NOTE | 2018-08-15 19:12 | NUR ---
HAND-OFF: Report given to NICOLE Stinson..
--- NOTE | 2018-08-15 19:45 | NUR ---
NURSE NOTES: Received patient in bed. On RA, no SOB, no acute distress, no c/o pain. RFA still noted with swelling and mild redness, noted patient sleeping on his R arm. Helped patient on change position and off weight on R arm, elevated on pillow. IV on L foot intact, patent running fluids. Bed in lowest position, locked, alarms on. Call light in reach.
[2018-08-15 20:00] VITALS: BP 134/71
--- NOTE | 2018-08-15 20:26 | General Progress Note ---
Assessment/Plan Problem List: (1) encephalopathy due to metabolic do (2) Major depressive disorder ICD Codes: F32.9 - Major depressive disorder, single episode, unspecified SNOMED: 354918317 Assessment/Plan cont Cymbalta 40mg qam seroquel 25mg q6hr prn agitation seroquel 25mg po bid provided ro/st Subjective Neurologic/Psychiatric: Reports: anxiety, depressed, emotional problems Allergies: Coded Allergies: CEFEPIME (Verified Allergy, Intermediate, Rash, 03/01/18) Tolerates Carbapenem Subjective in position the pt is irritable and depressed Objective Last 24 Hour Vital Signs Date Time Temp Pulse Resp B/P (MAP) Pulse Ox O2 Delivery O2 Flow Rate FiO2 08/15/18 19:39 95 22 Room Air 08/15/18 16:00 98.9 75 18 96/50 97 Room Air 08/15/18 12:00 99.2 100 18 145/97 98 Room Air 08/15/18 09:00 Room Air 08/15/18 08:00 97.2 74 20 113/50 97 Room Air 08/15/18 07:47 82 20 Room Air 08/15/18 04:00 99.3 96 19 133/70 98 Room Air 08/15/18 02:00 99.7 08/15/18 00:54 89 20 Room Air 08/15/18 00:00 99.8 90 19 112/55 98 Room Air 08/14/18 21:00 Room Air Intake and Output 08/14/18 08/15/18 19:00 07:00 Intake Total 756 ml 825 ml Output Total 1600 ml 1400 ml Balance -844 ml -575 ml Intake Oral 456 ml IV Total 300 ml 825 ml Output Urine Total 1600 ml 1400 ml # Voids 1 1 Laboratory Tests 08/15/18 10:00: White Blood Count 9.4, Red Blood Count 2.63L, Hemoglobin 8.2L, Hematocrit 26.0L , Mean Corpuscular Volume 99, Mean Corpuscular Hemoglobin 31.3H, Mean Corpuscular Hemoglobin Concent 31.7L, Red Cell Distribution Width 19.0H, Platelet Count 232, Mean Platelet Volume 5.9L, Neutrophils (%) (Auto) 76.0H, Lymphocytes (%) (Auto) 13.3L, Monocytes (%) (Auto) 8.1, Eosinophils (%) (Auto) 1.8, Basophils (%) (Auto) 0.7, Sodium Level 134L, Potassium Level 4.2, Chloride Level 105, Carbon Dioxide Level 16L, Anion Gap 13, Blood Urea Nitrogen 80H, Creatinine 6.8H, Estimat Glomerular Filtration Rate 8.2, Glucose Level 161#H, Calcium Level 8.4L, Phosphorus Level 5.1H, Total Bilirubin 0.3, Direct Bilirubin < 0.1, Aspartate Amino Transf (AST/SGOT) 10L, Alanine Aminotransferase (ALT/SGPT) 11L, Alkaline Phosphatase 76, Total Protein 5.7L, Albumin 1.9L Height (Feet): 6 Height (Inches): 0.00 Weight (Pounds): 151 General Appearance: no apparent distress, alert Neurologic: oriented x 3, responsive, depressed affect Fatmata Lu MD Aug 15, 2018 20:26
[2018-08-15] MEDS: Epoetin Alfa-EPBX (NON ESRD)10,000 unit/ml vial SUBQ SCH (20:50)
[2018-08-16] VITALS: BP 113/50
--- NOTE | 2018-08-16 01:20 | NUR ---
NURSE NOTES: Patient still noted with swelling, redness, hot and painful to touch on R forearm and R hand. Notified Dr Caputo and no new order received. MD said he will see the LAB result in AM and follow. Reminded patient to keep the R arm elevated and placed on pillow in comfortable position.
[2018-08-16 04:00] VITALS: BP 117/58
[2018-08-16] MEDS: NovoLOG Insulin Flexpen SUBQ SCH ×7 (05:57→20:47)
--- NOTE | 2018-08-16 06:59 | General Progress Note ---
Assessment/Plan Problem List: (1) DKA (diabetic ketoacidoses) ICD Codes: E13.10 - DKA (diabetic ketoacidoses) SNOMED: 37360366 Qualifiers: Qualified Codes: E10.10 - Type 1 diabetes mellitus with ketoacidosis without coma (2) CKD (chronic kidney disease), stage III ICD Codes: N18.3 - CKD (chronic kidney disease), stage III SNOMED: 942005906 (3) encephalopathy due to metabolic do (4) Pulmonary HTN ICD Codes: I27.0 - Pulmonary HTN SNOMED: 63355310 Assessment/Plan continue Levemir 12 units bid - do not hold without notifying me continue Novolog 6 units ac tid continue NISS ac / hs Subjective ROS Limited/Unobtainable: Yes Allergies: Coded Allergies: CEFEPIME (Verified Allergy, Intermediate, Rash, 03/01/18) Tolerates Carbapenem Subjective glucose values improving Objective Last 24 Hour Vital Signs Date Time Temp Pulse Resp B/P (MAP) Pulse Ox O2 Delivery O2 Flow Rate FiO2 08/16/18 04:00 98.3 85 18 117/58 96 Room Air 08/16/18 00:00 99.0 71 18 113/50 98 Room Air 08/15/18 21:00 Room Air 08/15/18 20:00 98.0 92 18 134/71 97 Room Air 08/15/18 19:39 95 22 Room Air 21 08/15/18 16:00 98.9 75 18 96/50 97 Room Air 08/15/18 12:00 99.2 100 18 145/97 98 Room Air 08/15/18 09:00 Room Air 08/15/18 08:00 97.2 74 20 113/50 97 Room Air 08/15/18 07:47 82 20 Room Air 21 Intake and Output 08/15/18 08/16/18 19:00 07:00 Intake Total 825 ml 825 ml Output Total 1600 ml 1120 ml Balance -775 ml -295 ml Intake Oral 750 ml IV Total 75 ml 825 ml Output Urine Total 1600 ml 1120 ml Laboratory Tests 08/15/18 10:00: White Blood Count 9.4, Red Blood Count 2.63L, Hemoglobin 8.2L, Hematocrit 26.0L , Mean Corpuscular Volume 99, Mean Corpuscular Hemoglobin 31.3H, Mean Corpuscular Hemoglobin Concent 31.7L, Red Cell Distribution Width 19.0H, Platelet Count 232, Mean Platelet Volume 5.9L, Neutrophils (%) (Auto) 76.0H, Lymphocytes (%) (Auto) 13.3L, Monocytes (%) (Auto) 8.1, Eosinophils (%) (Auto) 1.8, Basophils (%) (Auto) 0.7, Sodium Level 134L, Potassium Level 4.2, Chloride Level 105, Carbon Dioxide Level 16L, Anion Gap 13, Blood Urea Nitrogen 80H, Creatinine 6.8H, Estimat Glomerular Filtration Rate 8.2, Glucose Level 161#H, Calcium Level 8.4L, Phosphorus Level 5.1H, Total Bilirubin 0.3, Direct Bilirubin < 0.1, Aspartate Amino Transf (AST/SGOT) 10L, Alanine Aminotransferase (ALT/SGPT) 11L, Alkaline Phosphatase 76, Total Protein 5.7L, Albumin 1.9L Height (Feet): 6 Height (Inches): 0.00 Weight (Pounds): 149 General Appearance: no apparent distress Neck: normal alignment Cardiovascular: normal rate Respiratory/Chest: normal breath sounds Abdomen: normal bowel sounds Pelvis: normal external exam Objective Current Medications Medications (Trade) Dose Ordered Sig/Dunia Route PRN Reason Start Time Stop Time Status Last Admin Dose Admin Albuterol/ Ipratropium (Albuterol/ Ipratropium) 3 ml Q4H PRN HHN Shortness of Breath 08/13/18 14:30 08/18/18 14:29 Dextrose (Dextrose 50%) 25 ml Q30M PRN IV Hypoglycemia 08/11/18 14:30 09/10/18 14:29 08/13/18 06:06 Dextrose (Dextrose 50%) 50 ml Q30M PRN IV Hypoglycemia 08/11/18 14:30 09/10/18 14:29 08/12/18 21:01 Duloxetine HCl (Cymbalta) 40 mg DAILY ORAL 08/12/18 09:00 09/02/18 08:59 08/15/18 09:12 Epoetin Jose (Epoetin Jose-EPBX(NON ESRD)) 10,000 unit WED-WED-WED SUBQ 08/12/18 21:00 09/02/18 20:59 08/15/18 20:50 Heparin Sodium (Porcine) (Heparin 5000 units/ml) 5,000 units EVERY 12 HOURS SUBQ 08/11/18 21:00 08/28/18 08:59 08/15/18 20:43 Insulin Aspart (NovoLOG) BEFORE MEALS AND HS SUBQ 08/11/18 16:30 09/10/18 11:29 08/16/18 05:58 Insulin Aspart (NovoLOG) 6 units NOVOTIAC SUBQ 08/15/18 11:50 09/10/18 07:59 08/16/18 05:57 Insulin Detemir (Levemir) 12 units BID SUBQ 08/15/18 09:00 09/10/18 08:59 08/15/18 17:46 Pantoprazole (Protonix) 40 mg BIAC ORAL 08/11/18 16:30 09/10/18 16:29 08/16/18 05:56 Quetiapine Fumarate (SEROquel) 25 mg Q12HR ORAL 08/11/18 21:00 09/08/18 12:14 08/15/18 20:40 Quetiapine Fumarate (SEROquel) 25 mg Q6H PRN ORAL For Anxiety 08/11/18 14:30 08/31/18 14:29 Sevelamer Carbonate (Renvela) 800 mg THREE TIMES A DAY ORAL 08/13/18 09:00 09/12/18 08:59 08/15/18 17:40 Sodium Chloride 1,000 ml @ 75 mls/hr [id number] IV 08/11/18 14:30 09/09/18 14:29 08/16/18 00:42 Vitamin B Complex/ Vit C/Folic Acid (Nephrovite) 1 tab DAILY ORAL 08/12/18 09:00 08/29/18 08:59 08/15/18 09:08 Item Value Date Time Bedside Blood Glucose 365 mg/dl H 08/16/18 0636 Bedside Blood Glucose 264 mg/dl H 08/15/18 2100 Bedside Blood Glucose 175 mg/dl H 08/15/18 1746 Bedside Blood Glucose 204 mg/dl H 08/15/18 1224 Bedside Blood Glucose 344 mg/dl H 08/15/18 0913 Bedside Blood Glucose 344 mg/dl H 08/15/18 0617 Moedsto Jacques MD Aug 16, 2018 06:59
--- NOTE | 2018-08-16 07:45 | NUR ---
HAND-OFF: Report given to Adriana RIVERA.
--- NOTE | 2018-08-16 07:55 | NUR ---
NURSE NOTES: Patient received in stable condition, eating breakfast in bed. Alert and oriented x3. Breathing unlabored on room air. No s/s of respiratory distress or pain noted. Suprapubic catheter changed by Dr. Rios. IV site on L foot patent and intact. Bed locked in low position, call light within reach. Will continue to monitor.
[2018-08-16 08:00] VITALS: BP 141/74
--- NOTE | 2018-08-16 08:00 | Urology Progress Note ---
Assessment/Plan Assessment/Plan 1. Urinary retention. 2. Neurogenic bladder. 3. History of chronic suprapubic tube. 4. BPH history. 5. History of end-stage renal disease. 6. Hematuria. 7. Pyuria. 8. Proteinuria. 9. Renal cysts. monitor clinically keep sp tube I personally removed old sp tube and placed new 18f cath hand irrigated and do PRN cath secured to pt's leg s/p abx recheck urine cx at some point Subjective Allergies: Coded Allergies: CEFEPIME (Verified Allergy, Intermediate, Rash, 03/01/18) Tolerates Carbapenem Subjective all noted, new sp tube draining well, occasional leakage Objective Last 24 Hour Vital Signs Date Time Temp Pulse Resp B/P (MAP) Pulse Ox O2 Delivery O2 Flow Rate FiO2 08/16/18 04:00 98.3 85 18 117/58 96 Room Air 08/16/18 00:00 99.0 71 18 113/50 98 Room Air 08/15/18 21:00 Room Air 08/15/18 20:00 98.0 92 18 134/71 97 Room Air 08/15/18 19:39 95 22 Room Air 21 08/15/18 16:00 98.9 75 18 96/50 97 Room Air 08/15/18 12:00 99.2 100 18 145/97 98 Room Air 08/15/18 09:00 Room Air 08/15/18 08:00 97.2 74 20 113/50 97 Room Air Intake and Output 08/15/18 08/16/18 19:00 07:00 Intake Total 825 ml 825 ml Output Total 1600 ml 1120 ml Balance -775 ml -295 ml Intake Oral 750 ml IV Total 75 ml 825 ml Output Urine Total 1600 ml 1120 ml Microbiology Date/Time Source Procedure Growth Status 07/29/18 05:29 Blood Blood Culture - Final NO GROWTH AFTER 5 DAYS Complete 07/29/18 00:30 Nasal Nares MRSA Culture - Final Staphylococcus Aureus - Mrsa Complete 07/29/18 05:15 Urine,Clean Catch Urine Culture - Final Gram Positive Cocci Complete 07/29/18 00:30 Rectum VRE Culture - Final Enterococcus Faecalis - Vre Enterococcus Faecium - Vre Complete Current Medications Medications (Trade) Dose Ordered Sig/Dunia Route PRN Reason Start Time Stop Time Status Last Admin Dose Admin Albuterol/ Ipratropium (Albuterol/ Ipratropium) 3 ml Q4H PRN HHN Shortness of Breath 08/13/18 14:30 08/18/18 14:29 Dextrose (Dextrose 50%) 25 ml Q30M PRN IV Hypoglycemia 08/11/18 14:30 09/10/18 14:29 08/13/18 06:06 Dextrose (Dextrose 50%) 50 ml Q30M PRN IV Hypoglycemia 08/11/18 14:30 09/10/18 14:29 08/12/18 21:01 Duloxetine HCl (Cymbalta) 40 mg DAILY ORAL 08/12/18 09:00 09/02/18 08:59 08/15/18 09:12 Epoetin Jose (Epoetin Jose-EPBX(NON ESRD)) 10,000 unit WED-WED-WED SUBQ 08/12/18 21:00 09/02/18 20:59 08/15/18 20:50 Heparin Sodium (Porcine) (Heparin 5000 units/ml) 5,000 units EVERY 12 HOURS SUBQ 08/11/18 21:00 08/28/18 08:59 08/15/18 20:43 Insulin Aspart (NovoLOG) BEFORE MEALS AND HS SUBQ 08/11/18 16:30 09/10/18 11:29 08/16/18 05:58 Insulin Aspart (NovoLOG) 6 units NOVOTIAC SUBQ 08/15/18 11:50 09/10/18 07:59 08/16/18 05:57 Insulin Detemir (Levemir) 12 units BID SUBQ 08/15/18 09:00 09/10/18 08:59 08/15/18 17:46 Pantoprazole (Protonix) 40 mg BIAC ORAL 08/11/18 16:30 09/10/18 16:29 08/16/18 05:56 Quetiapine Fumarate (SEROquel) 25 mg Q12HR ORAL 08/11/18 21:00 09/08/18 12:14 08/15/18 20:40 Quetiapine Fumarate (SEROquel) 25 mg Q6H PRN ORAL For Anxiety 08/11/18 14:30 08/31/18 14:29 Sevelamer Carbonate (Renvela) 800 mg THREE TIMES A DAY ORAL 08/13/18 09:00 09/12/18 08:59 08/15/18 17:40 Sodium Chloride 1,000 ml @ 75 mls/hr [id number] IV 08/11/18 14:30 09/09/18 14:29 08/16/18 00:42 Vitamin B Complex/ Vit C/Folic Acid (Nephrovite) 1 tab DAILY ORAL 08/12/18 09:00 08/29/18 08:59 08/15/18 09:08 Laboratory Tests 08/15/18 10:00: White Blood Count 9.4, Red Blood Count 2.63L, Hemoglobin 8.2L, Hematocrit 26.0L , Mean Corpuscular Volume 99, Mean Corpuscular Hemoglobin 31.3H, Mean Corpuscular Hemoglobin Concent 31.7L, Red Cell Distribution Width 19.0H, Platelet Count 232, Mean Platelet Volume 5.9L, Neutrophils (%) (Auto) 76.0H, Lymphocytes (%) (Auto) 13.3L, Monocytes (%) (Auto) 8.1, Eosinophils (%) (Auto) 1.8, Basophils (%) (Auto) 0.7, Sodium Level 134L, Potassium Level 4.2, Chloride Level 105, Carbon Dioxide Level 16L, Anion Gap 13, Blood Urea Nitrogen 80H, Creatinine 6.8H, Estimat Glomerular Filtration Rate 8.2, Glucose Level 161#H, Calcium Level 8.4L, Phosphorus Level 5.1H, Total Bilirubin 0.3, Direct Bilirubin < 0.1, Aspartate Amino Transf (AST/SGOT) 10L, Alanine Aminotransferase (ALT/SGPT) 11L, Alkaline Phosphatase 76, Total Protein 5.7L, Albumin 1.9L Height (Feet): 6 Height (Inches): 0.00 Weight (Pounds): 149 Objective exam stable Ye Rios MD Aug 16, 2018 08:00
[2018-08-16 08:39] LABS: BASOPHILS % (AUTO) 0.7 % (0.0-2.0); EOSINOPHILS % (AUTO) 2.3 % (0.0-3.0); HEMATOCRIT 26.9 % (42.0-52.0); HEMOGLOBIN 8.4 G/DL (14.2-18.0); LYMPHOCYTES % (AUTO) 16.3 % (20.0-45.0); MEAN CORPUSCULAR VOLUME 101 FL (80-99); MONOCYTES % (AUTO) 6.4 % (1.0-10.0); NEUTROPHILS % (AUTO) 74.3 % (45.0-75.0); PLATELET COUNT 256 K/UL (150-450); RED BLOOD COUNT 2.66 M/UL (4.70-6.10); RED CELL DISTRIBUTION WIDTH 19.2 % (11.6-14.8); WHITE BLOOD COUNT 7.7 K/UL (4.8-10.8)
[2018-08-16 08:49] LABS: ANION GAP 12 mmol/L (5-15); BLOOD UREA NITROGEN 78 mg/dL (7-18); CALCIUM 7.8 MG/DL (8.5-10.1); CARBON DIOXIDE 16 MMOL/L (21-32); CHLORIDE 106 MMOL/L (98-107); CREATININE 7.2 MG/DL (0.55-1.30); POTASSIUM 4.6 MMOL/L (3.5-5.1); SODIUM 134 MMOL/L (136-145)
[2018-08-16] MEDS: Nephrovite tab (Rena-Vite) ORAL SCH (08:58)
[2018-08-16] MEDS: Heparin 5000 units/ml inj SUBQ SCH ×2 (09:01→20:48)
[2018-08-16] MEDS: Levemir Flexpen SUBQ SCH ×2 (09:15→18:17)
--- NOTE | 2018-08-16 10:11 | Infectious Diseases Prog Note ---
Assessment/Plan Assessment/Plan Severe sepsis -likely 2ry to UTI- SP, s/p rx -u.a wbc tntc, nit neg, luek +3; ucx <10k GPC -Bcx Neg -CXR: Suspected atelectasis or scarring right Afebrile Leukocytosis, SP DKA RIVKA, improving hx of recent sepsis 2ry to UTI and bacteremia 07/08/18 UCx - P.a. MDR and Providencia 07/08/18 BCx ESBL Proteus and K. pneumo Dm2 HLD MDD with suicidal attempts in the past w/ resultant chronic encephalopathy CAD/[place] BPH anemia asthma colonic polyps ESRD s/p renal and pancreas tx ~10 yrs ago now CKD 4 ConS bacteremia/line infection urinary retention s/p suprapubic catheter 09/2017 recurrent hematuria multiple hospital admissions recurrent UTI DNR Plan: - Monitor off abx -08/02 SP Meropenem d# 5 07/29 SP one dose Amikacin -07/22 SP Meropenem, #14 - f/u cx -Monitor CBC/CMP, temperatures Subjective Allergies: Coded Allergies: CEFEPIME (Verified Allergy, Intermediate, Rash, 03/01/18) Tolerates Carbapenem Subjective CECIL Afebrile No leukocytosis Objective Vital Signs Last 24 Hour Vital Signs Date Time Temp Pulse Resp B/P (MAP) Pulse Ox O2 Delivery O2 Flow Rate FiO2 08/16/18 09:40 80 20 Room Air 08/16/18 09:00 Room Air 08/16/18 08:00 97.6 85 18 141/74 96 Room Air 08/16/18 04:00 98.3 85 18 117/58 96 Room Air 08/16/18 00:00 99.0 71 18 113/50 98 Room Air 08/15/18 21:00 Room Air 08/15/18 20:00 98.0 92 18 134/71 97 Room Air 08/15/18 19:39 95 22 Room Air 08/15/18 16:00 98.9 75 18 96/50 97 Room Air 08/15/18 12:00 99.2 100 18 145/97 98 Room Air Height (Feet): 6 Height (Inches): 0.00 Weight (Pounds): 149 Objective GEN: NAD HEENT: NCAT, MMM, EOMI Lungs: chest wall tender Heart: HR/BP stable, Abdomen: soft, non-tender, ND Extremities: no C/C/E, Erythema at former infiltrated IV site Laboratory Tests Test 08/16/18 08:30 White Blood Count 7.7 K/UL (4.8-10.8) Red Blood Count 2.66 M/UL (4.70-6.10) L Hemoglobin 8.4 G/DL (14.2-18.0) L Hematocrit 26.9 % (42.0-52.0) L Mean Corpuscular Volume 101 FL (80-99) H Mean Corpuscular Hemoglobin 31.5 PG (27.0-31.0) H Mean Corpuscular Hemoglobin Concent 31.3 G/DL (32.0-36.0) L Red Cell Distribution Width 19.2 % (11.6-14.8) H Platelet Count 256 K/UL (150-450) Mean Platelet Volume 5.9 FL (6.5-10.1) L Neutrophils (%) (Auto) 74.3 % (45.0-75.0) Lymphocytes (%) (Auto) 16.3 % (20.0-45.0) L Monocytes (%) (Auto) 6.4 % (1.0-10.0) Eosinophils (%) (Auto) 2.3 % (0.0-3.0) Basophils (%) (Auto) 0.7 % (0.0-2.0) Sodium Level 134 MMOL/L (136-145) L Potassium Level 4.6 MMOL/L (3.5-5.1) Chloride Level 106 MMOL/L (98-107) Carbon Dioxide Level 16 MMOL/L (21-32) L Anion Gap 12 mmol/L (5-15) Blood Urea Nitrogen 78 mg/dL (7-18) H Creatinine 7.2 MG/DL (0.55-1.30) H Estimat Glomerular Filtration Rate 7.7 mL/min (>60) Glucose Level 288 MG/DL (74-106) #H Calcium Level 7.8 MG/DL (8.5-10.1) L Current Medications Medications (Trade) Dose Ordered Sig/Dunia Route PRN Reason Start Time Stop Time Status Last Admin Dose Admin Albuterol/ Ipratropium (Albuterol/ Ipratropium) 3 ml Q4H PRN HHN Shortness of Breath 2/2/19 14:30 08/18/18 14:29 Dextrose (Dextrose 50%) 25 ml Q30M PRN IV Hypoglycemia 08/11/18 14:30 09/10/18 14:29 08/13/18 06:06 Dextrose (Dextrose 50%) 50 ml Q30M PRN IV Hypoglycemia 08/11/18 14:30 09/10/18 14:29 08/12/18 21:01 Duloxetine HCl (Cymbalta) 40 mg DAILY ORAL 08/12/18 09:00 09/02/18 08:59 08/16/18 08:59 Epoetin Jose (Epoetin Jose-EPBX(NON ESRD)) 10,000 unit WED-WED-WED SUBQ 08/12/18 21:00 09/02/18 20:59 08/15/18 20:50 Heparin Sodium (Porcine) (Heparin 5000 units/ml) 5,000 units EVERY 12 HOURS SUBQ 08/11/18 21:00 08/28/18 08:59 08/16/18 09:01 Insulin Aspart (NovoLOG) BEFORE MEALS AND HS SUBQ 08/11/18 16:30 09/10/18 11:29 08/16/18 05:58 Insulin Aspart (NovoLOG) 6 units NOVOTIAC SUBQ 08/15/18 11:50 09/10/18 07:59 08/16/18 05:57 Insulin Detemir (Levemir) 12 units BID SUBQ 08/15/18 09:00 09/10/18 08:59 08/16/18 09:15 Pantoprazole (Protonix) 40 mg BIAC ORAL 08/11/18 16:30 09/10/18 16:29 08/16/18 05:56 Quetiapine Fumarate (SEROquel) 25 mg Q12HR ORAL 08/11/18 21:00 09/08/18 12:14 08/16/18 08:59 Quetiapine Fumarate (SEROquel) 25 mg Q6H PRN ORAL For Anxiety 08/11/18 14:30 08/31/18 14:29 Sevelamer Carbonate (Renvela) 800 mg THREE TIMES A DAY ORAL 08/13/18 09:00 09/12/18 08:59 08/16/18 08:58 Sodium Chloride 1,000 ml @ 75 mls/hr [id number] IV 08/11/18 14:30 09/09/18 14:29 08/16/18 00:42 Vitamin B Complex/ Vit C/Folic Acid (Nephrovite) 1 tab DAILY ORAL 08/12/18 09:00 08/29/18 08:59 08/16/18 08:58 William Caputo MD Aug 16, 2018 10:11
--- NOTE | 2018-08-16 11:56 | NUR ---
*-* DISCHARGE PLANNING *-* PATIENT HAS BEEN REFERRED TO: [facility] P:[phone] F:[phone]
[2018-08-16 12:00] VITALS: BP 122/65
--- NOTE | 2018-08-16 12:02 | NUR ---
NURSE NOTES: Meal time insulin not given as patient ate <50% of lunch, as per parameters insulin should be withheld in the mentioned circumstance.
--- NOTE | 2018-08-16 12:18 | NUR ---
RD ASSESSMENT & RECOMMENDATIONS SEE CARE ACTIVITY FOR COMPLETE ASSESSMENT DAILY ESTIMATED NEEDS: Needs based on Renal no HD, DM, 71.8kg 25-35 kcals/kg 2952-1107 total kcals .6-1 g protein/kg 43-72 g total protein Fluid per MD NUTRITION DIAGNOSIS: 1) Decreased sodium, potassium, and protein needs R/T renal dysfunction as evidenced by pt w/ CKD, w/ elev Creat (7.1->6.4), BUN (87->68), elev BNP, elev K on adm, now wnl, pt refusing HD. 2) Altered nutrition related lab values r/t DKA as evidenced by elev BG on adm(616-> 161 288 improved), Uglu 4+ upon adm, w/ recent txr to ICU for elev BG (>900), on insulin drip- now improved, pt out of ICU. (UPDATED) CURRENT DIET: RENAL, CCHO MED PO DIET RECOMMENDATIONS: RENAL/ CCHO LOW + snacks in b/w meals ADDITIONAL RECOMMENDATIONS: * Obtain a recalibrated bed scale wt for accurate CBW * Monitor lytes daily, need for con't renal diet restrictions. * Wound eval for buttocks redness as per RN * 1 carb snack TID- to prevent hypoglycemia * F/up w/ WC eval, none at this time. . .
--- NOTE | 2018-08-16 12:25 | Nephrology Progress Note ---
Assessment/Plan Problem List: (1) Acute on chronic renal failure (2) Bladder outlet obstruction (3) Anemia in chronic kidney disease (4) BPH (benign prostatic hypertrophy) (5) DKA (diabetic ketoacidoses) (6) Encephalopathy acute Assessment High Glucose now improved ESRD , in need of dialysis , refuses- presents with high K Encephalopathy , Metabolic Acidosis , Uremic and Diabetic Sever Anemia: Mixed etiology HTn, but presents with low BP Supra Pubic Cath, h/o UTI, BPH Psych disease CAD, elevated Troponin I s/p DKAs Plan no labs today Kayexelate for high K as needed Transfuse as needed Sugar control will do poorly in view of no dialysis plans DNR per orders Subjective ROS Limited/Unobtainable: No Constitutional: Reports: malaise, weakness Objective Objective Last 24 Hour Vital Signs Date Time Temp Pulse Resp B/P (MAP) Pulse Ox O2 Delivery O2 Flow Rate FiO2 08/16/18 12:00 97.4 73 20 122/65 95 Room Air 08/16/18 09:40 80 20 Room Air 21 08/16/18 09:00 Room Air 08/16/18 08:00 97.6 85 18 141/74 96 Room Air 08/16/18 04:00 98.3 85 18 117/58 96 Room Air 08/16/18 00:00 99.0 71 18 113/50 98 Room Air 08/15/18 21:00 Room Air 08/15/18 20:00 98.0 92 18 134/71 97 Room Air 08/15/18 19:39 95 22 Room Air 21 08/15/18 16:00 98.9 75 18 96/50 97 Room Air Intake and Output 08/15/18 08/16/18 19:00 07:00 Intake Total 825 ml 825 ml Output Total 1600 ml 1120 ml Balance -775 ml -295 ml Intake Oral 750 ml IV Total 75 ml 825 ml Output Urine Total 1600 ml 1120 ml Laboratory Tests 08/16/18 08:30: White Blood Count 7.7, Red Blood Count 2.66L, Hemoglobin 8.4L, Hematocrit 26.9L , Mean Corpuscular Volume 101H, Mean Corpuscular Hemoglobin 31.5H, Mean Corpuscular Hemoglobin Concent 31.3L, Red Cell Distribution Width 19.2H, Platelet Count 256, Mean Platelet Volume 5.9L, Neutrophils (%) (Auto) 74.3, Lymphocytes (%) (Auto) 16.3L, Monocytes (%) (Auto) 6.4, Eosinophils (%) (Auto) 2.3, Basophils (%) (Auto) 0.7, Sodium Level 134L, Potassium Level 4.6, Chloride Level 106, Carbon Dioxide Level 16L, Anion Gap 12, Blood Urea Nitrogen 78H, Creatinine 7.2H, Estimat Glomerular Filtration Rate 7.7, Glucose Level 288#H, Calcium Level 7.8L Height (Feet): 6 Height (Inches): 0.00 Weight (Pounds): 149 General Appearance: no apparent distress Objective no change Luis Chambers MD Aug 16, 2018 12:25
--- NOTE | 2018-08-16 12:28 | General Progress Note ---
Assessment/Plan Problem List: (1) encephalopathy due to metabolic do (2) Major depressive disorder ICD Codes: F32.9 - Major depressive disorder, single episode, unspecified SNOMED: [id number] Assessment/Plan cont Cymbalta 40mg qam seroquel 25mg q6hr prn agitation seroquel 25mg po bid provided ro/st Subjective Neurologic/Psychiatric: Reports: anxiety, depressed, emotional problems Allergies: Coded Allergies: CEFEPIME (Verified Allergy, Intermediate, Rash, 03/01/18) Tolerates Carbapenem Subjective in position the pt is irritable and depressed Objective Last 24 Hour Vital Signs Date Time Temp Pulse Resp B/P (MAP) Pulse Ox O2 Delivery O2 Flow Rate FiO2 08/16/18 12:00 97.4 73 20 122/65 95 Room Air 08/16/18 09:40 80 20 Room Air 21 08/16/18 09:00 Room Air 08/16/18 08:00 97.6 85 18 141/74 96 Room Air 08/16/18 04:00 98.3 85 18 117/58 96 Room Air 08/16/18 00:00 99.0 71 18 113/50 98 Room Air 08/15/18 21:00 Room Air 08/15/18 20:00 98.0 92 18 134/71 97 Room Air 08/15/18 19:39 95 22 Room Air 21 08/15/18 16:00 98.9 75 18 96/50 97 Room Air Intake and Output 08/15/18 08/16/18 19:00 07:00 Intake Total 825 ml 825 ml Output Total 1600 ml 1120 ml Balance -775 ml -295 ml Intake Oral 750 ml IV Total 75 ml 825 ml Output Urine Total 1600 ml 1120 ml Laboratory Tests 08/16/18 08:30: White Blood Count 7.7, Red Blood Count 2.66L, Hemoglobin 8.4L, Hematocrit 26.9L , Mean Corpuscular Volume 101H, Mean Corpuscular Hemoglobin 31.5H, Mean Corpuscular Hemoglobin Concent 31.3L, Red Cell Distribution Width 19.2H, Platelet Count 256, Mean Platelet Volume 5.9L, Neutrophils (%) (Auto) 74.3, Lymphocytes (%) (Auto) 16.3L, Monocytes (%) (Auto) 6.4, Eosinophils (%) (Auto) 2.3, Basophils (%) (Auto) 0.7, Sodium Level 134L, Potassium Level 4.6, Chloride Level 106, Carbon Dioxide Level 16L, Anion Gap 12, Blood Urea Nitrogen 78H, Creatinine 7.2H, Estimat Glomerular Filtration Rate 7.7, Glucose Level 288#H, Calcium Level 7.8L Height (Feet): 6 Height (Inches): 0.00 Weight (Pounds): 149 General Appearance: WD/WN, no apparent distress, alert Neurologic: oriented x 3, responsive, depressed affect Fatmata Lu MD Aug 16, 2018 12:28
--- NOTE | 2018-08-16 14:07 | Pulmonology Progress Note ---
Assessment/Plan Problems: (1) Encephalopathy acute (2) DKA (diabetic ketoacidoses) (3) Anemia in chronic kidney disease (4) CKD (chronic kidney disease), stage III (5) Major depressive disorder (6) Bladder outlet obstruction (7) Suprapubic catheter Assessment/Plan doing better again creatinine lower doing better no new complains Bs better controlled pt refusing HD check electrolytes continue DNR dvt prophylaxis Subjective ROS Limited/Unobtainable: No Constitutional: Reports: no symptoms HEENT: Repors: no symptoms Allergies: Coded Allergies: CEFEPIME (Verified Allergy, Intermediate, Rash, 03/01/18) Tolerates Carbapenem Objective Last 24 Hour Vital Signs Date Time Temp Pulse Resp B/P (MAP) Pulse Ox O2 Delivery O2 Flow Rate FiO2 08/16/18 12:00 97.4 73 20 122/65 95 Room Air 08/16/18 09:40 80 20 Room Air 21 08/16/18 09:00 Room Air 08/16/18 08:00 97.6 85 18 141/74 96 Room Air 08/16/18 04:00 98.3 85 18 117/58 96 Room Air 08/16/18 00:00 99.0 71 18 113/50 98 Room Air 08/15/18 21:00 Room Air 08/15/18 20:00 98.0 92 18 134/71 97 Room Air 08/15/18 19:39 95 22 Room Air 21 08/15/18 16:00 98.9 75 18 96/50 97 Room Air Intake and Output 08/15/18 08/16/18 19:00 07:00 Intake Total 825 ml 825 ml Output Total 1600 ml 1120 ml Balance -775 ml -295 ml Intake Oral 750 ml IV Total 75 ml 825 ml Output Urine Total 1600 ml 1120 ml Objective General Appearance: WD/WN HEENT: normocephalic, atraumatic, anicteric Respiratory/Chest: chest wall non-tender, lungs clear Breasts: no masses Cardiovascular: normal peripheral pulses, normal rate Abdomen: normal bowel sounds, soft, non tender Extremities: no cyanosis Skin: no rash Neurologic/Psychiatric: surgical supplies sterilizer II-XII grossly normal Lymphatic: no neck adenopathy Laboratory Tests 08/16/18 08:30: White Blood Count 7.7, Red Blood Count 2.66L, Hemoglobin 8.4L, Hematocrit 26.9L , Mean Corpuscular Volume 101H, Mean Corpuscular Hemoglobin 31.5H, Mean Corpuscular Hemoglobin Concent 31.3L, Red Cell Distribution Width 19.2H, Platelet Count 256, Mean Platelet Volume 5.9L, Neutrophils (%) (Auto) 74.3, Lymphocytes (%) (Auto) 16.3L, Monocytes (%) (Auto) 6.4, Eosinophils (%) (Auto) 2.3, Basophils (%) (Auto) 0.7, Sodium Level 134L, Potassium Level 4.6, Chloride Level 106, Carbon Dioxide Level 16L, Anion Gap 12, Blood Urea Nitrogen 78H, Creatinine 7.2H, Estimat Glomerular Filtration Rate 7.7, Glucose Level 288#H, Calcium Level 7.8L Current Medications Medications (Trade) Dose Ordered Sig/Dunia Route PRN Reason Start Time Stop Time Status Last Admin Dose Admin Albuterol/ Ipratropium (Albuterol/ Ipratropium) 3 ml Q4H PRN HHN Shortness of Breath 08/13/18 14:30 08/18/18 14:29 Dextrose (Dextrose 50%) 25 ml Q30M PRN IV Hypoglycemia 08/11/18 14:30 09/10/18 14:29 08/13/18 06:06 Dextrose (Dextrose 50%) 50 ml Q30M PRN IV Hypoglycemia 08/11/18 14:30 09/10/18 14:29 08/12/18 21:01 Duloxetine HCl (Cymbalta) 40 mg DAILY ORAL 08/12/18 09:00 09/02/18 08:59 08/16/18 08:59 Epoetin Jose (Epoetin Jose-EPBX(NON ESRD)) 10,000 unit WED-WED-WED SUBQ 08/12/18 21:00 09/02/18 20:59 08/15/18 20:50 Heparin Sodium (Porcine) (Heparin 5000 units/ml) 5,000 units EVERY 12 HOURS SUBQ 08/11/18 21:00 08/28/18 08:59 08/16/18 09:01 Insulin Aspart (NovoLOG) BEFORE MEALS AND HS SUBQ 08/11/18 16:30 09/10/18 11:29 08/16/18 11:30 Insulin Aspart (NovoLOG) 6 units NOVOTIAC SUBQ 08/15/18 11:50 09/10/18 07:59 08/16/18 05:57 Insulin Detemir (Levemir) 12 units BID SUBQ 08/15/18 09:00 09/10/18 08:59 08/16/18 09:15 Pantoprazole (Protonix) 40 mg BIAC ORAL 08/11/18 16:30 09/10/18 16:29 08/16/18 05:56 Quetiapine Fumarate (SEROquel) 25 mg Q12HR ORAL 08/11/18 21:00 09/08/18 12:14 08/16/18 08:59 Quetiapine Fumarate (SEROquel) 25 mg Q6H PRN ORAL For Anxiety 08/11/18 14:30 08/31/18 14:29 Sevelamer Carbonate (Renvela) 800 mg THREE TIMES A DAY ORAL 08/13/18 09:00 09/12/18 08:59 08/16/18 08:58 Sodium Chloride 1,000 ml @ 75 mls/hr [id number] IV 08/11/18 14:30 09/09/18 14:29 08/16/18 00:42 Vitamin B Complex/ Vit C/Folic Acid (Nephrovite) 1 tab DAILY ORAL 08/12/18 09:00 08/29/18 08:59 08/16/18 08:58 Esdras Delgado MD Aug 16, 2018 14:07
--- NOTE | 2018-08-16 14:45 | NUR ---
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 97.4 HR 73 RR 20 B/P 122/65 NA 134 BUN 78 CR 7.2 GLU 288 RA 98% IS: IVF NS @ 75ML/HR HEPARIN SUBC SEROQUEL PO ALB HHN LEVEMIR SUBC PLACEMENT PENDING MED/SURG STATUS
--- NOTE | 2018-08-16 14:56 | NUR ---
*-* DISCAHRGE PLANNING *-* PATIENT HAS BEEN REFERRED TO: VANIA JORDAN P:[phone] F:[phone] F2:[phone]
[2018-08-16 15:49] VITALS: BP 117/64
--- NOTE | 2018-08-16 17:10 | NUR ---
NURSE NOTES: Patient's Accucheck 60 mg/dL. 2 cups of orange juice given, observed patient finishing both cups. Explained to the patient that he must drink them because his blood sugar is very low. 50% dextrose injection administer IVP per parameter orders. Patient is currently alert and oriented, eating dinner. No s/s of hypo or hyperglycemia observed. RN assessing patient by the bedside to ensure diabetes safety. Will check BS again after patient finishes dinner.
--- NOTE | 2018-08-16 18:24 | Internal Med Progress Note ---
Subjective Date of Service: Aug 16, 2018 Physician Name GlasgowJose Attending Physician Christopher Rosado MD Current Medications Medications (Trade) Dose Ordered Sig/Dunia Route PRN Reason Start Time Stop Time Status Last Admin Dose Admin Albuterol/ Ipratropium (Albuterol/ Ipratropium) 3 ml Q4H PRN HHN Shortness of Breath 08/13/18 14:30 08/18/18 14:29 Dextrose (Dextrose 50%) 25 ml Q30M PRN IV Hypoglycemia 08/11/18 14:30 09/10/18 14:29 08/16/18 17:03 Dextrose (Dextrose 50%) 50 ml Q30M PRN IV Hypoglycemia 08/11/18 14:30 09/10/18 14:29 08/12/18 21:01 Duloxetine HCl (Cymbalta) 40 mg DAILY ORAL 08/12/18 09:00 09/02/18 08:59 08/16/18 08:59 Epoetin Jose (Epoetin Jose-EPBX(NON ESRD)) 10,000 unit WED-WED-WED SUBQ 08/12/18 21:00 09/02/18 20:59 08/15/18 20:50 Heparin Sodium (Porcine) (Heparin 5000 units/ml) 5,000 units EVERY 12 HOURS SUBQ 08/11/18 21:00 08/28/18 08:59 08/16/18 09:01 Insulin Aspart (NovoLOG) BEFORE MEALS AND HS SUBQ 08/11/18 16:30 09/10/18 11:29 08/16/18 11:30 Insulin Aspart (NovoLOG) 6 units NOVOTIAC SUBQ 08/15/18 11:50 09/10/18 07:59 08/16/18 05:57 Insulin Detemir (Levemir) 12 units BID SUBQ 08/15/18 09:00 09/10/18 08:59 08/16/18 18:17 Pantoprazole (Protonix) 40 mg BIAC ORAL 08/11/18 16:30 09/10/18 16:29 08/16/18 16:28 Quetiapine Fumarate (SEROquel) 25 mg Q12HR ORAL 08/11/18 21:00 09/08/18 12:14 08/16/18 08:59 Quetiapine Fumarate (SEROquel) 25 mg Q6H PRN ORAL For Anxiety 08/11/18 14:30 08/31/18 14:29 Sevelamer Carbonate (Renvela) 800 mg THREE TIMES A DAY ORAL 08/13/18 09:00 09/12/18 08:59 08/16/18 17:54 Sodium Chloride 1,000 ml @ 75 mls/hr [id number] IV 08/11/18 14:30 09/09/18 14:29 08/16/18 14:16 Vitamin B Complex/ Vit C/Folic Acid (Nephrovite) 1 tab DAILY ORAL 08/12/18 09:00 08/29/18 08:59 08/16/18 08:58 Allergies: Coded Allergies: CEFEPIME (Verified Allergy, Intermediate, Rash, 03/01/18) Tolerates Carbapenem ROS Limited/Unobtainable: No Constitutional: Reports: no symptoms HEENT: Reports: no symptoms Cardiovascular: Reports: no symptoms Respiratory: Reports: no symptoms Gastrointestinal/Abdominal: Reports: no symptoms Genitourinary: Reports: no symptoms Neurologic/Psychiatric: Reports: no symptoms Subjective 63 YO M with history of diabetes I admitted with hyperglycemia and DKA. Cover for Int Med-Dr Rosado. Await acceptance to [facility] Objective Last Vital Signs Date Time Temp Pulse Resp B/P (MAP) Pulse Ox O2 Delivery O2 Flow Rate FiO2 08/16/18 15:49 97.7 74 20 117/64 97 Room Air 08/16/18 09:40 21 Laboratory Tests Test 08/16/18 08:30 White Blood Count 7.7 K/UL (4.8-10.8) Red Blood Count 2.66 M/UL (4.70-6.10) L Hemoglobin 8.4 G/DL (14.2-18.0) L Hematocrit 26.9 % (42.0-52.0) L Mean Corpuscular Volume 101 FL (80-99) H Mean Corpuscular Hemoglobin 31.5 PG (27.0-31.0) H Mean Corpuscular Hemoglobin Concent 31.3 G/DL (32.0-36.0) L Red Cell Distribution Width 19.2 % (11.6-14.8) H Platelet Count 256 K/UL (150-450) Mean Platelet Volume 5.9 FL (6.5-10.1) L Neutrophils (%) (Auto) 74.3 % (45.0-75.0) Lymphocytes (%) (Auto) 16.3 % (20.0-45.0) L Monocytes (%) (Auto) 6.4 % (1.0-10.0) Eosinophils (%) (Auto) 2.3 % (0.0-3.0) Basophils (%) (Auto) 0.7 % (0.0-2.0) Sodium Level 134 MMOL/L (136-145) L Potassium Level 4.6 MMOL/L (3.5-5.1) Chloride Level 106 MMOL/L (98-107) Carbon Dioxide Level 16 MMOL/L (21-32) L Anion Gap 12 mmol/L (5-15) Blood Urea Nitrogen 78 mg/dL (7-18) H Creatinine 7.2 MG/DL (0.55-1.30) H Estimat Glomerular Filtration Rate 7.7 mL/min (>60) Glucose Level 288 MG/DL (74-106) #H Calcium Level 7.8 MG/DL (8.5-10.1) L Intake and Output 08/15/18 08/16/18 18:59 06:59 Intake Total 750 ml 900 ml Output Total 1600 ml 1120 ml Balance -850 ml -220 ml Intake Oral 750 ml IV Total 900 ml Output Urine Total 1600 ml 1120 ml Objective GENERAL: The patient is awake and responsive but confused, in no acute distress. HEAD AND NECK: Pupils are equal and reactive to light. Extraocular movements are intact in the right eye. Left eye blindness, Neck was supple. No JVD. LUNGS: fair air entry. No wheezing or rales. HEART: S1 and S2. Distant heart sounds. No Murmur or gallops. ABDOMEN: Soft, nontender, and nontender. Suprapubic catheter was noted. EXTREMITIES: No cyanosis or clubbing. Bilateral lower extremity trace LE's edema. NEUROLOGIC: Cranial nerves II through XII grossly intact. Motor is 5/5 in all extremities. Gait was not assessed due to the patient's status. Assessment/Plan Assessment/Plan ASSESSMENT: 1. DKA. 2. Hypertension. 3. Dyslipidemia. 4. Diabetes type 1 with prior history of diabetic ketoacidosis. 5. Diabetic retinopathy of the left eye blindness. 6. End-stage renal disease secondary to diabetic nephrosclerosis. 7. Coronary artery disease with prior history of myocardial infarction. 8. 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 9. 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 10. Secondary hyperparathyroidism with vitamin D deficiency. 11. Anemia of chronic kidney disease. 12. Metabolic acidosis. 13. Depression with prior suicide attempt. 14. Acute encephalopathy due to toxic metabolic encephalopathy due to DKA. 15. Hyperkalemia PLAN: 1. Med/surg 2. Code status is DNR/DNI as per POLST in the chart. 3. Resume correction medications. 4. Follow up with Labs and culture. 5. Broad spectrum antibiotic with Meropenem. 6. DVT prophylaxis, heparin subcutaneous. 7. We will follow up with Dr. Delgado with critical care , Dr. Chambers from Nephrology and Dr. Rich Wick from Infectious Disease. 8. We will follow up with the cultures and laboratory in the morning. 9. Better control with Levemir and Insulin sliding scale per endocrinology 10. Discharge planning: [facility] when bed available. 11. Kayexalate for hyperkalemia Jose Glasgow MD Aug 16, 2018 18:24
--- NOTE | 2018-08-16 19:24 | NUR ---
HAND-OFF: Report given to Kierra RIVERA.
[2018-08-16 20:00] VITALS: BP 116/46
[2018-08-17] VITALS: BP 121/51
[2018-08-17 04:00] VITALS: BP 108/54
[2018-08-17] MEDS: NovoLOG Insulin Flexpen SUBQ SCH ×7 (06:35→21:00)
--- NOTE | 2018-08-17 07:30 | NUR ---
HAND-OFF: Report given to Latrice RIVERA.
[2018-08-17 08:00] VITALS: BP 131/69
[2018-08-17 08:04] LABS: BASOPHILS % (AUTO) 0.6 % (0.0-2.0); EOSINOPHILS % (AUTO) 4.3 % (0.0-3.0); HEMATOCRIT 28.6 % (42.0-52.0); LYMPHOCYTES % (AUTO) 20.5 % (20.0-45.0); MEAN CORPUSCULAR VOLUME 99 FL (80-99); MONOCYTES % (AUTO) 6.3 % (1.0-10.0); NEUTROPHILS % (AUTO) 68.3 % (45.0-75.0); PLATELET COUNT 253 K/UL (150-450); RED BLOOD COUNT 2.88 M/UL (4.70-6.10); RED CELL DISTRIBUTION WIDTH 19.2 % (11.6-14.8); WHITE BLOOD COUNT 6.3 K/UL (4.8-10.8)
--- NOTE | 2018-08-17 08:09 | NUR ---
NURSE NOTES: Patient alert x3, on room air, no sign of shortness of breath. No sign of chest pain. Supra-pubic catheter in place, drains welol. IV L-foot in place, 1/2NS 75 CC running. Skin- intact. Will check blood sugar and given Novolg and Levimer as schedules. Side rails x2, breaks engaged, bed at lowestp position. Will keep monitoring.
[2018-08-17 08:32] LABS: ANION GAP 13 mmol/L (5-15); BLOOD UREA NITROGEN 76 mg/dL (7-18); CALCIUM 8.3 MG/DL (8.5-10.1); CARBON DIOXIDE 14 MMOL/L (21-32); CHLORIDE 109 MMOL/L (98-107); POTASSIUM 5.2 MMOL/L (3.5-5.1); SODIUM 136 MMOL/L (136-145)
[2018-08-17] MEDS: Nephrovite tab (Rena-Vite) ORAL SCH (09:31)
[2018-08-17] MEDS: Heparin 5000 units/ml inj SUBQ SCH ×2 (09:36→20:50)
[2018-08-17] MEDS: Levemir Flexpen SUBQ SCH ×2 (09:36→18:14)
--- NOTE | 2018-08-17 10:07 | Urology Progress Note ---
Assessment/Plan Assessment/Plan 1. Urinary retention. 2. Neurogenic bladder. 3. History of chronic suprapubic tube. 4. BPH history. 5. History of end-stage renal disease. 6. Hematuria. 7. Pyuria. 8. Proteinuria. 9. Renal cysts. monitor clinically keep sp tube, last exchanged 2 hand irrigate PRN cath secured to pt's leg s/p abx recheck urine cx at some point Subjective Allergies: Coded Allergies: CEFEPIME (Verified Allergy, Intermediate, Rash, 03/01/18) Tolerates Carbapenem Subjective all noted, new sp tube draining well, occasional leakage Objective Last 24 Hour Vital Signs Date Time Temp Pulse Resp B/P (MAP) Pulse Ox O2 Delivery O2 Flow Rate FiO2 08/17/18 08:03 79 16 Room Air 21 08/17/18 08:00 98.4 76 18 131/69 97 Room Air 08/17/18 04:00 97.9 68 18 108/54 98 Room Air 08/17/18 00:00 97.8 69 17 121/51 97 Room Air 08/16/18 21:00 Room Air 08/16/18 20:00 77 20 Room Air 21 08/16/18 20:00 97.7 74 17 116/46 98 Room Air 08/16/18 15:49 97.7 74 20 117/64 97 Room Air 08/16/18 12:00 97.4 73 20 122/65 95 Room Air Intake and Output 08/16/18 08/17/18 19:00 07:00 Intake Total 435 ml 825 ml Output Total 1050 ml 1300 ml Balance -615 ml -475 ml Intake Oral 360 ml IV Total 75 ml 825 ml Output Urine Total 1050 ml 1300 ml # Voids 1 # Bowel Movements 1 Microbiology Date/Time Source Procedure Growth Status 07/29/18 05:29 Blood Blood Culture - Final NO GROWTH AFTER 5 DAYS Complete 07/29/18 00:30 Nasal Nares MRSA Culture - Final Staphylococcus Aureus - Mrsa Complete 07/29/18 05:15 Urine,Clean Catch Urine Culture - Final Gram Positive Cocci Complete 07/29/18 00:30 Rectum VRE Culture - Final Enterococcus Faecalis - Vre Enterococcus Faecium - Vre Complete Current Medications Medications (Trade) Dose Ordered Sig/Dunia Route PRN Reason Start Time Stop Time Status Last Admin Dose Admin Albuterol/ Ipratropium (Albuterol/ Ipratropium) 3 ml Q4H PRN HHN Shortness of Breath 08/13/18 14:30 08/18/18 14:29 Dextrose (Dextrose 50%) 25 ml Q30M PRN IV Hypoglycemia 08/11/18 14:30 09/10/18 14:29 08/16/18 17:03 Dextrose (Dextrose 50%) 50 ml Q30M PRN IV Hypoglycemia 08/11/18 14:30 09/10/18 14:29 08/12/18 21:01 Duloxetine HCl (Cymbalta) 40 mg DAILY ORAL 08/12/18 09:00 09/02/18 08:59 08/17/18 09:31 Epoetin Jose (Epoetin Jose-EPBX(NON ESRD)) 10,000 unit WED-WED-WED SUBQ 08/12/18 21:00 09/02/18 20:59 08/15/18 20:50 Heparin Sodium (Porcine) (Heparin 5000 units/ml) 5,000 units EVERY 12 HOURS SUBQ 08/11/18 21:00 08/28/18 08:59 08/17/18 09:36 Insulin Aspart (NovoLOG) BEFORE MEALS AND HS SUBQ 08/11/18 16:30 09/10/18 11:29 08/17/18 06:35 Insulin Aspart (NovoLOG) 6 units NOVOTIAC SUBQ 08/15/18 11:50 09/10/18 07:59 08/17/18 06:37 Insulin Detemir (Levemir) 12 units BID SUBQ 08/15/18 09:00 09/10/18 08:59 08/17/18 09:36 Pantoprazole (Protonix) 40 mg BIAC ORAL 08/11/18 16:30 09/10/18 16:29 08/17/18 06:34 Quetiapine Fumarate (SEROquel) 25 mg Q12HR ORAL 08/11/18 21:00 09/08/18 12:14 08/17/18 09:32 Quetiapine Fumarate (SEROquel) 25 mg Q6H PRN ORAL For Anxiety 08/11/18 14:30 08/31/18 14:29 Sevelamer Carbonate (Renvela) 800 mg THREE TIMES A DAY ORAL 08/13/18 09:00 09/12/18 08:59 08/17/18 09:32 Sodium Chloride 1,000 ml @ 75 mls/hr [id number] IV 08/11/18 14:30 09/09/18 14:29 08/17/18 04:15 Vitamin B Complex/ Vit C/Folic Acid (Nephrovite) 1 tab DAILY ORAL 08/12/18 09:00 08/29/18 08:59 08/17/18 09:31 Laboratory Tests 08/17/18 07:50: White Blood Count 6.3, Red Blood Count 2.88L, Hemoglobin 9.0L, Hematocrit 28.6L , Mean Corpuscular Volume 99, Mean Corpuscular Hemoglobin 31.2H, Mean Corpuscular Hemoglobin Concent 31.4L, Red Cell Distribution Width 19.2H, Platelet Count 253, Mean Platelet Volume 5.9L, Neutrophils (%) (Auto) 68.3, Lymphocytes (%) (Auto) 20.5, Monocytes (%) (Auto) 6.3, Eosinophils (%) (Auto) 4.3H, Basophils (%) (Auto) 0.6, Sodium Level 136, Potassium Level 5.2H, Chloride Level 109H, Carbon Dioxide Level 14L, Anion Gap 13, Blood Urea Nitrogen 76H, Creatinine 7.0H, Estimat Glomerular Filtration Rate 8.0, Glucose Level 135#H, Calcium Level 8.3L Height (Feet): 6 Height (Inches): 0.00 Weight (Pounds): 148 Objective exam stable Ye Rios MD Aug 17, 2018 10:07
--- NOTE | 2018-08-17 11:14 | Nephrology Progress Note ---
Assessment/Plan Problem List: (1) Acute on chronic renal failure (2) Bladder outlet obstruction (3) Anemia in chronic kidney disease (4) BPH (benign prostatic hypertrophy) (5) DKA (diabetic ketoacidoses) (6) Encephalopathy acute Assessment High Glucose now improved ESRD , in need of dialysis , refuses- presents with high K Encephalopathy , Metabolic Acidosis , Uremic and Diabetic Sever Anemia: Mixed etiology HTn, but presents with low BP Supra Pubic Cath, h/o UTI, BPH Psych disease CAD, elevated Troponin I s/p DKAs Plan Kayexelate for high K as needed Transfuse as needed Sugar control will do poorly in view of no dialysis plans DNR per orders Subjective ROS Limited/Unobtainable: No Constitutional: Reports: malaise, weakness Objective Objective Last 24 Hour Vital Signs Date Time Temp Pulse Resp B/P (MAP) Pulse Ox O2 Delivery O2 Flow Rate FiO2 08/17/18 09:00 Room Air 08/17/18 08:03 79 16 Room Air 21 08/17/18 08:00 98.4 76 18 131/69 97 Room Air 08/17/18 04:00 97.9 68 18 108/54 98 Room Air 08/17/18 00:00 97.8 69 17 121/51 97 Room Air 08/16/18 21:00 Room Air 08/16/18 20:00 77 20 Room Air 21 08/16/18 20:00 97.7 74 17 116/46 98 Room Air 08/16/18 15:49 97.7 74 20 117/64 97 Room Air 08/16/18 12:00 97.4 73 20 122/65 95 Room Air Intake and Output 08/16/18 08/17/18 19:00 07:00 Intake Total 435 ml 825 ml Output Total 1050 ml 1300 ml Balance -615 ml -475 ml Intake Oral 360 ml IV Total 75 ml 825 ml Output Urine Total 1050 ml 1300 ml # Voids 1 # Bowel Movements 1 Laboratory Tests 08/17/18 07:50: White Blood Count 6.3, Red Blood Count 2.88L, Hemoglobin 9.0L, Hematocrit 28.6L , Mean Corpuscular Volume 99, Mean Corpuscular Hemoglobin 31.2H, Mean Corpuscular Hemoglobin Concent 31.4L, Red Cell Distribution Width 19.2H, Platelet Count 253, Mean Platelet Volume 5.9L, Neutrophils (%) (Auto) 68.3, Lymphocytes (%) (Auto) 20.5, Monocytes (%) (Auto) 6.3, Eosinophils (%) (Auto) 4.3H, Basophils (%) (Auto) 0.6, Sodium Level 136, Potassium Level 5.2H, Chloride Level 109H, Carbon Dioxide Level 14L, Anion Gap 13, Blood Urea Nitrogen 76H, Creatinine 7.0H, Estimat Glomerular Filtration Rate 8.0, Glucose Level 135#H, Calcium Level 8.3L Height (Feet): 6 Height (Inches): 0.00 Weight (Pounds): 148 General Appearance: no apparent distress Cardiovascular: regular rhythm Respiratory/Chest: decreased breath sounds Abdomen: soft Objective no change Luis Chambers MD Aug 17, 2018 11:14
[2018-08-17] MEDS ORDERED: Sodium Polystyrene Sulfonate 15gm Powder ORAL SCH (11:15)
[2018-08-17 12:00] VITALS: BP 128/71
--- NOTE | 2018-08-17 12:48 | Infectious Diseases Prog Note ---
Assessment/Plan Assessment/Plan Severe sepsis -likely 2ry to UTI- SP, s/p rx -u.a wbc tntc, nit neg, luek +3; ucx <10k GPC -Bcx Neg -CXR: Suspected atelectasis or scarring right Afebrile Leukocytosis, SP DKA RIVKA, improving hx of recent sepsis 2ry to UTI and bacteremia 07/08/18 UCx - P.a. MDR and Providencia 07/08/18 BCx ESBL Proteus and K. pneumo Dm2 HLD MDD with suicidal attempts in the past w/ resultant chronic encephalopathy CAD/GA BPH anemia asthma colonic polyps ESRD s/p renal and pancreas tx ~10 yrs ago now CKD 4 ConS bacteremia/line infection urinary retention s/p suprapubic catheter 09/2017 recurrent hematuria multiple hospital admissions recurrent UTI DNR Plan: - Continue to Monitor off abx -08/02 SP Meropenem d# 5 07/29 SP one dose Amikacin -07/22 SP Meropenem, #14 - f/u cx -Monitor CBC/CMP, temperatures Subjective Allergies: Coded Allergies: CEFEPIME (Verified Allergy, Intermediate, Rash, 03/01/18) Tolerates Carbapenem Subjective Afebrile No leukocytosis Objective Vital Signs Last 24 Hour Vital Signs Date Time Temp Pulse Resp B/P (MAP) Pulse Ox O2 Delivery O2 Flow Rate FiO2 08/17/18 12:00 98.3 79 18 128/71 98 Room Air 08/17/18 09:00 Room Air 08/17/18 08:03 79 16 Room Air 08/17/18 08:00 98.4 76 18 131/69 97 Room Air 08/17/18 04:00 97.9 68 18 108/54 98 Room Air 08/17/18 00:00 97.8 69 17 121/51 97 Room Air 08/16/18 21:00 Room Air 08/16/18 20:00 77 20 Room Air 21 08/16/18 20:00 97.7 74 17 116/46 98 Room Air 08/16/18 15:49 97.7 74 20 117/64 97 Room Air Height (Feet): 6 Height (Inches): 0.00 Weight (Pounds): 148 Objective GEN: NAD, Sitting in bed HEENT: NCAT, MMM, EOMI Lungs: chest wall tender Heart: HR/BP stable, Abdomen: soft, non-tender, ND Extremities: no C/C/E, Erythema at former infiltrated IV site resolving Laboratory Tests Test 08/17/18 07:50 White Blood Count 6.3 K/UL (4.8-10.8) Red Blood Count 2.88 M/UL (4.70-6.10) L Hemoglobin 9.0 G/DL (14.2-18.0) L Hematocrit 28.6 % (42.0-52.0) L Mean Corpuscular Volume 99 FL (80-99) Mean Corpuscular Hemoglobin 31.2 PG (27.0-31.0) H Mean Corpuscular Hemoglobin Concent 31.4 G/DL (32.0-36.0) L Red Cell Distribution Width 19.2 % (11.6-14.8) H Platelet Count 253 K/UL (150-450) Mean Platelet Volume 5.9 FL (6.5-10.1) L Neutrophils (%) (Auto) 68.3 % (45.0-75.0) Lymphocytes (%) (Auto) 20.5 % (20.0-45.0) Monocytes (%) (Auto) 6.3 % (1.0-10.0) Eosinophils (%) (Auto) 4.3 % (0.0-3.0) H Basophils (%) (Auto) 0.6 % (0.0-2.0) Sodium Level 136 MMOL/L (136-145) Potassium Level 5.2 MMOL/L (3.5-5.1) H Chloride Level 109 MMOL/L (98-107) H Carbon Dioxide Level 14 MMOL/L (21-32) L Anion Gap 13 mmol/L (5-15) Blood Urea Nitrogen 76 mg/dL (7-18) H Creatinine 7.0 MG/DL (0.55-1.30) H Estimat Glomerular Filtration Rate 8.0 mL/min (>60) Glucose Level 135 MG/DL (74-106) #H Calcium Level 8.3 MG/DL (8.5-10.1) L Current Medications Medications (Trade) Dose Ordered Sig/Dunia Route PRN Reason Start Time Stop Time Status Last Admin Dose Admin Albuterol/ Ipratropium (Albuterol/ Ipratropium) 3 ml Q4H PRN HHN Shortness of Breath 08/13/18 14:30 08/18/18 14:29 Dextrose (Dextrose 50%) 25 ml Q30M PRN IV Hypoglycemia 08/11/18 14:30 09/10/18 14:29 08/16/18 17:03 Dextrose (Dextrose 50%) 50 ml Q30M PRN IV Hypoglycemia 08/11/18 14:30 09/10/18 14:29 08/12/18 21:01 Duloxetine HCl (Cymbalta) 40 mg DAILY ORAL 08/12/18 09:00 09/02/18 08:59 08/17/18 09:31 Epoetin Jose (Epoetin Jose-EPBX(NON ESRD)) 10,000 unit WED- SUBQ 08/12/18 21:00 09/02/18 20:59 08/15/18 20:50 Heparin Sodium (Porcine) (Heparin 5000 units/ml) 5,000 units EVERY 12 HOURS SUBQ 08/11/18 21:00 08/28/18 08:59 08/17/18 09:36 Insulin Aspart (NovoLOG) BEFORE MEALS AND HS SUBQ 08/11/18 16:30 09/10/18 11:29 08/17/18 11:44 Insulin Aspart (NovoLOG) 6 units NOVOTIAC SUBQ 08/15/18 11:50 09/10/18 07:59 08/17/18 11:43 Insulin Detemir (Levemir) 12 units BID SUBQ 08/15/18 09:00 09/10/18 08:59 08/17/18 09:36 Pantoprazole (Protonix) 40 mg BIAC ORAL 08/11/18 16:30 09/10/18 16:29 08/17/18 06:34 Quetiapine Fumarate (SEROquel) 25 mg Q12HR ORAL 08/11/18 21:00 09/08/18 12:14 08/17/18 09:32 Quetiapine Fumarate (SEROquel) 25 mg Q6H PRN ORAL For Anxiety 08/11/18 14:30 08/31/18 14:29 Sevelamer Carbonate (Renvela) 800 mg THREE TIMES A DAY ORAL 08/13/18 09:00 09/12/18 08:59 08/17/18 12:15 Sodium Polystyrene Sulfonate (Kayexalate) 30 gm ONCE ORAL 08/17/18 11:15 08/17/18 13:00 08/17/18 12:16 Sodium Chloride 1,000 ml @ 75 mls/hr [id number] IV 08/11/18 14:30 09/09/18 14:29 08/17/18 04:15 Vitamin B Complex/ Vit C/Folic Acid (Nephrovite) 1 tab DAILY ORAL 08/12/18 09:00 08/29/18 08:59 08/17/18 09:31 William Caputo MD Aug 17, 2018 12:48
--- NOTE | 2018-08-17 12:51 | General Progress Note ---
Assessment/Plan Problem List: (1) encephalopathy due to metabolic do (2) Major depressive disorder ICD Codes: F32.9 - Major depressive disorder, single episode, unspecified SNOMED: 107921773 Assessment/Plan increase Cymbalta 60mg qam seroquel 25mg q6hr prn agitation seroquel 25mg po bid provided ro/st Subjective Neurologic/Psychiatric: Reports: anxiety, depressed, emotional problems Allergies: Coded Allergies: CEFEPIME (Verified Allergy, Intermediate, Rash, 03/01/18) Tolerates Carbapenem Subjective the pt is the same cont to be depressed irritable and indifferent Objective Last 24 Hour Vital Signs Date Time Temp Pulse Resp B/P (MAP) Pulse Ox O2 Delivery O2 Flow Rate FiO2 08/17/18 12:00 98.3 79 18 128/71 98 Room Air 08/17/18 09:00 Room Air 08/17/18 08:03 79 16 Room Air 21 08/17/18 08:00 98.4 76 18 131/69 97 Room Air 08/17/18 04:00 97.9 68 18 108/54 98 Room Air 08/17/18 00:00 97.8 69 17 121/51 97 Room Air 08/16/18 21:00 Room Air 08/16/18 20:00 77 20 Room Air 21 08/16/18 20:00 97.7 74 17 116/46 98 Room Air 08/16/18 15:49 97.7 74 20 117/64 97 Room Air Intake and Output 08/16/18 08/17/18 19:00 07:00 Intake Total 435 ml 825 ml Output Total 1050 ml 1300 ml Balance -615 ml -475 ml Intake Oral 360 ml IV Total 75 ml 825 ml Output Urine Total 1050 ml 1300 ml # Voids 1 # Bowel Movements 1 Laboratory Tests 08/17/18 07:50: White Blood Count 6.3, Red Blood Count 2.88L, Hemoglobin 9.0L, Hematocrit 28.6L , Mean Corpuscular Volume 99, Mean Corpuscular Hemoglobin 31.2H, Mean Corpuscular Hemoglobin Concent 31.4L, Red Cell Distribution Width 19.2H, Platelet Count 253, Mean Platelet Volume 5.9L, Neutrophils (%) (Auto) 68.3, Lymphocytes (%) (Auto) 20.5, Monocytes (%) (Auto) 6.3, Eosinophils (%) (Auto) 4.3H, Basophils (%) (Auto) 0.6, Sodium Level 136, Potassium Level 5.2H, Chloride Level 109H, Carbon Dioxide Level 14L, Anion Gap 13, Blood Urea Nitrogen 76H, Creatinine 7.0H, Estimat Glomerular Filtration Rate 8.0, Glucose Level 135#H, Calcium Level 8.3L Height (Feet): 6 Height (Inches): 0.00 Weight (Pounds): 148 General Appearance: no apparent distress, alert Neurologic: depressed affect Fatmata Lu MD Aug 17, 2018 12:51
--- NOTE | 2018-08-17 12:55 | Internal Med Progress Note ---
Subjective Date of Service: Aug 17, 2018 Physician Name Jose Glasgow Attending Physician Christopher Rosado MD Current Medications Medications (Trade) Dose Ordered Sig/Dunia Route PRN Reason Start Time Stop Time Status Last Admin Dose Admin Albuterol/ Ipratropium (Albuterol/ Ipratropium) 3 ml Q4H PRN HHN Shortness of Breath 08/13/18 14:30 08/18/18 14:29 Dextrose (Dextrose 50%) 25 ml Q30M PRN IV Hypoglycemia 08/11/18 14:30 09/10/18 14:29 08/16/18 17:03 Dextrose (Dextrose 50%) 50 ml Q30M PRN IV Hypoglycemia 08/11/18 14:30 09/10/18 14:29 08/12/18 21:01 Duloxetine HCl (Cymbalta) 60 mg DAILY ORAL 08/18/18 09:00 09/17/18 08:59 UNV Epoetin Jose (Epoetin Jose-EPBX(NON ESRD)) 10,000 unit WED-WED-WED SUBQ 08/12/18 21:00 09/02/18 20:59 08/15/18 20:50 Heparin Sodium (Porcine) (Heparin 5000 units/ml) 5,000 units EVERY 12 HOURS SUBQ 08/11/18 21:00 08/28/18 08:59 08/17/18 09:36 Insulin Aspart (NovoLOG) BEFORE MEALS AND HS SUBQ 08/11/18 16:30 09/10/18 11:29 08/17/18 11:44 Insulin Aspart (NovoLOG) 6 units NOVOTIAC SUBQ 08/15/18 11:50 09/10/18 07:59 08/17/18 11:43 Insulin Detemir (Levemir) 12 units BID SUBQ 08/15/18 09:00 09/10/18 08:59 08/17/18 09:36 Pantoprazole (Protonix) 40 mg BIAC ORAL 08/11/18 16:30 09/10/18 16:29 08/17/18 06:34 Quetiapine Fumarate (SEROquel) 25 mg Q12HR ORAL 08/11/18 21:00 09/08/18 12:14 08/17/18 09:32 Quetiapine Fumarate (SEROquel) 25 mg Q6H PRN ORAL For Anxiety 08/11/18 14:30 08/31/18 14:29 Sevelamer Carbonate (Renvela) 800 mg THREE TIMES A DAY ORAL 08/13/18 09:00 09/12/18 08:59 08/17/18 12:15 Sodium Polystyrene Sulfonate (Kayexalate) 30 gm ONCE ORAL 08/17/18 11:15 08/17/18 13:00 08/17/18 12:16 Sodium Chloride 1,000 ml @ 75 mls/hr [id number] IV 08/11/18 14:30 09/09/18 14:29 08/17/18 04:15 Vitamin B Complex/ Vit C/Folic Acid (Nephrovite) 1 tab DAILY ORAL 08/12/18 09:00 08/29/18 08:59 08/17/18 09:31 Allergies: Coded Allergies: CEFEPIME (Verified Allergy, Intermediate, Rash, 03/01/18) Tolerates Carbapenem ROS Limited/Unobtainable: No Constitutional: Reports: no symptoms HEENT: Reports: no symptoms Cardiovascular: Reports: no symptoms Respiratory: Reports: no symptoms Gastrointestinal/Abdominal: Reports: no symptoms Genitourinary: Reports: no symptoms Neurologic/Psychiatric: Reports: no symptoms Subjective 63 YO M with history of diabetes I admitted with hyperglycemia and DKA. Cover for Int Med-Dr Rosado. Await acceptance to [facility] Objective Last Vital Signs Date Time Temp Pulse Resp B/P (MAP) Pulse Ox O2 Delivery O2 Flow Rate FiO2 08/17/18 12:00 98.3 79 18 128/71 98 Room Air 08/17/18 08:03 21 Laboratory Tests Test 08/17/18 07:50 White Blood Count 6.3 K/UL (4.8-10.8) Red Blood Count 2.88 M/UL (4.70-6.10) L Hemoglobin 9.0 G/DL (14.2-18.0) L Hematocrit 28.6 % (42.0-52.0) L Mean Corpuscular Volume 99 FL (80-99) Mean Corpuscular Hemoglobin 31.2 PG (27.0-31.0) H Mean Corpuscular Hemoglobin Concent 31.4 G/DL (32.0-36.0) L Red Cell Distribution Width 19.2 % (11.6-14.8) H Platelet Count 253 K/UL (150-450) Mean Platelet Volume 5.9 FL (6.5-10.1) L Neutrophils (%) (Auto) 68.3 % (45.0-75.0) Lymphocytes (%) (Auto) 20.5 % (20.0-45.0) Monocytes (%) (Auto) 6.3 % (1.0-10.0) Eosinophils (%) (Auto) 4.3 % (0.0-3.0) H Basophils (%) (Auto) 0.6 % (0.0-2.0) Sodium Level 136 MMOL/L (136-145) Potassium Level 5.2 MMOL/L (3.5-5.1) H Chloride Level 109 MMOL/L (98-107) H Carbon Dioxide Level 14 MMOL/L (21-32) L Anion Gap 13 mmol/L (5-15) Blood Urea Nitrogen 76 mg/dL (7-18) H Creatinine 7.0 MG/DL (0.55-1.30) H Estimat Glomerular Filtration Rate 8.0 mL/min (>60) Glucose Level 135 MG/DL (74-106) #H Calcium Level 8.3 MG/DL (8.5-10.1) L Intake and Output 08/16/18 2 19:00 07:00 Intake Total 435 ml 825 ml Output Total 1050 ml 1300 ml Balance -615 ml -475 ml Intake Oral 360 ml IV Total 75 ml 825 ml Output Urine Total 1050 ml 1300 ml # Voids 1 # Bowel Movements 1 Objective GENERAL: The patient is awake and responsive but confused, in no acute distress. HEAD AND NECK: Pupils are equal and reactive to light. Extraocular movements are intact in the right eye. Left eye blindness, Neck was supple. No JVD. LUNGS: fair air entry. No wheezing or rales. HEART: S1 and S2. Distant heart sounds. No Murmur or gallops. ABDOMEN: Soft, nontender, and nontender. Suprapubic catheter was noted. EXTREMITIES: No cyanosis or clubbing. Bilateral lower extremity trace LE's edema. NEUROLOGIC: Cranial nerves II through XII grossly intact. Motor is 5/5 in all extremities. Gait was not assessed due to the patient's status. Assessment/Plan Assessment/Plan ASSESSMENT: 1. DKA. 2. Hypertension. 3. Dyslipidemia. 4. Diabetes type 1 with prior history of diabetic ketoacidosis. 5. Diabetic retinopathy of the left eye blindness. 6. End-stage renal disease secondary to diabetic nephrosclerosis. 7. Coronary artery disease with prior history of myocardial infarction. 8. 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 9. 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 10. Secondary hyperparathyroidism with vitamin D deficiency. 11. Anemia of chronic kidney disease. 12. Metabolic acidosis. 13. Depression with prior suicide attempt. 14. Acute encephalopathy due to toxic metabolic encephalopathy due to DKA. 15. Hyperkalemia PLAN: 1. Med/surg 2. Code status is DNR/DNI as per MALINDA in the chart. 3. Resume correction medications. 4. Follow up with Labs and culture. 5. Broad spectrum antibiotic with Meropenem. 6. DVT prophylaxis, heparin subcutaneous. 7. We will follow up with Dr. Delgado with critical care , Dr. Chambers from Nephrology and Dr. Rich Wick from Infectious Disease. 8. We will follow up with the cultures and laboratory in the morning. 9. Better control with Levemir and Insulin sliding scale per endocrinology; FSBG =[phone] 10. Discharge planning: [facility] when bed available. 11. Kayexalate for hyperkalemia Jose Glasgow MD Aug 17, 2018 12:55
--- NOTE | 2018-08-17 13:32 | Pulmonology Progress Note ---
Assessment/Plan Problems: (1) Encephalopathy acute (2) DKA (diabetic ketoacidoses) (3) Anemia in chronic kidney disease (4) CKD (chronic kidney disease), stage III (5) Major depressive disorder (6) Bladder outlet obstruction (7) Suprapubic catheter Assessment/Plan doing better again creatinine lower doing better no new complains Bs better controlled pt refusing HD check electrolytes continue DNR dvt prophylaxis Subjective ROS Limited/Unobtainable: No Constitutional: Reports: no symptoms HEENT: Repors: no symptoms Respiratory: Reports: no symptoms Allergies: Coded Allergies: CEFEPIME (Verified Allergy, Intermediate, Rash, 03/01/18) Tolerates Carbapenem Objective Last 24 Hour Vital Signs Date Time Temp Pulse Resp B/P (MAP) Pulse Ox O2 Delivery O2 Flow Rate FiO2 08/17/18 12:00 98.3 79 18 128/71 98 Room Air 08/17/18 09:00 Room Air 08/17/18 08:03 79 16 Room Air 21 08/17/18 08:00 98.4 76 18 131/69 97 Room Air 08/17/18 04:00 97.9 68 18 108/54 98 Room Air 08/17/18 00:00 97.8 69 17 121/51 97 Room Air 08/16/18 21:00 Room Air 08/16/18 20:00 77 20 Room Air 21 08/16/18 20:00 97.7 74 17 116/46 98 Room Air 08/16/18 15:49 97.7 74 20 117/64 97 Room Air Intake and Output 08/16/18 08/17/18 19:00 07:00 Intake Total 435 ml 825 ml Output Total 1050 ml 1300 ml Balance -615 ml -475 ml Intake Oral 360 ml IV Total 75 ml 825 ml Output Urine Total 1050 ml 1300 ml # Voids 1 # Bowel Movements 1 Objective General Appearance: WD/WN HEENT: normocephalic, atraumatic, anicteric Respiratory/Chest: chest wall non-tender, lungs clear Breasts: no masses Cardiovascular: normal peripheral pulses, normal rate Abdomen: normal bowel sounds, soft, non tender Extremities: no cyanosis Skin: no rash Neurologic/Psychiatric: fudger II-XII grossly normal Lymphatic: no neck adenopathy Laboratory Tests 08/17/18 07:50: White Blood Count 6.3, Red Blood Count 2.88L, Hemoglobin 9.0L, Hematocrit 28.6L , Mean Corpuscular Volume 99, Mean Corpuscular Hemoglobin 31.2H, Mean Corpuscular Hemoglobin Concent 31.4L, Red Cell Distribution Width 19.2H, Platelet Count 253, Mean Platelet Volume 5.9L, Neutrophils (%) (Auto) 68.3, Lymphocytes (%) (Auto) 20.5, Monocytes (%) (Auto) 6.3, Eosinophils (%) (Auto) 4.3H, Basophils (%) (Auto) 0.6, Sodium Level 136, Potassium Level 5.2H, Chloride Level 109H, Carbon Dioxide Level 14L, Anion Gap 13, Blood Urea Nitrogen 76H, Creatinine 7.0H, Estimat Glomerular Filtration Rate 8.0, Glucose Level 135#H, Calcium Level 8.3L Current Medications Medications (Trade) Dose Ordered Sig/Dunia Route PRN Reason Start Time Stop Time Status Last Admin Dose Admin Albuterol/ Ipratropium (Albuterol/ Ipratropium) 3 ml Q4H PRN HHN Shortness of Breath 08/13/18 14:30 08/18/18 14:29 Dextrose (Dextrose 50%) 25 ml Q30M PRN IV Hypoglycemia 08/11/18 14:30 09/10/18 14:29 08/16/18 17:03 Dextrose (Dextrose 50%) 50 ml Q30M PRN IV Hypoglycemia 08/11/18 14:30 09/10/18 14:29 08/12/18 21:01 Duloxetine HCl (Cymbalta) 60 mg DAILY ORAL 08/18/18 09:00 09/17/18 08:59 Epoetin Jose (Epoetin Jose-EPBX(NON ESRD)) 10,000 unit MON-WED-WED SUBQ 08/12/18 21:00 09/02/18 20:59 08/15/18 20:50 Heparin Sodium (Porcine) (Heparin 5000 units/ml) 5,000 units EVERY 12 HOURS SUBQ 08/11/18 21:00 08/28/18 08:59 08/17/18 09:36 Insulin Aspart (NovoLOG) BEFORE MEALS AND HS SUBQ 08/11/18 16:30 09/10/18 11:29 08/17/18 11:44 Insulin Aspart (NovoLOG) 6 units NOVOTIAC SUBQ 08/15/18 11:50 09/10/18 07:59 08/17/18 11:43 Insulin Detemir (Levemir) 12 units BID SUBQ 08/15/18 09:00 09/10/18 08:59 08/17/18 09:36 Pantoprazole (Protonix) 40 mg BIAC ORAL 08/11/18 16:30 09/10/18 16:29 08/17/18 06:34 Quetiapine Fumarate (SEROquel) 25 mg Q12HR ORAL 08/11/18 21:00 09/08/18 12:14 08/17/18 09:32 Quetiapine Fumarate (SEROquel) 25 mg Q6H PRN ORAL For Anxiety 08/11/18 14:30 08/31/18 14:29 Sevelamer Carbonate (Renvela) 800 mg THREE TIMES A DAY ORAL 08/13/18 09:00 09/12/18 08:59 08/17/18 12:15 Sodium Chloride 1,000 ml @ 75 mls/hr [id number] IV 08/11/18 14:30 09/09/18 14:29 08/17/18 04:15 Vitamin B Complex/ Vit C/Folic Acid (Nephrovite) 1 tab DAILY ORAL 08/12/18 09:00 08/29/18 08:59 08/17/18 09:31 Esdras Delgado MD Aug 17, 2018 13:32
--- NOTE | 2018-08-17 14:36 | NUR ---
[employer]SI[employer] C[employer] SI: HYPERGLYCEMIA, DKA T. 98.4 HR 79 RR 18 B/P 121/51 K 5.2 BUN 76 CR 7.0 IS: IVF NS @ 75ML/HR HEPARIN SUBC PROTONIX SEROQUEL INSULIN SUBC PLACEMENT PENDING MED/SURG STATUS
[2018-08-17 16:00] VITALS: BP 126/78
--- NOTE | 2018-08-17 18:03 | NUR ---
NURSE NOTES: Patient removed his IV access and couldn't let RN to try on him. I communicated MD Rosado and he ordered Haldol 2 mg.
[2018-08-17] MEDS ORDERED: Haloperidol 5mg/ml Inj IM SCH (18:15)
[2018-08-17] MEDS ORDERED: DiphenhydrAMINE 50mg/ml Inj IM SCH (18:30)
[2018-08-17] MEDS ORDERED: LORazepam Inj 2mg/ml 1ml IM SCH (18:30)
--- NOTE | 2018-08-17 18:40 | NUR ---
NURSE NOTES: couldn't able to hung the IV bag which is scheduled at 1710 due to patient didn't let to to try to get him IV access. RN communicated MD Rosado and received order. Haldo 2 mg given and will monitor try to get IV access on patient.
--- NOTE | 2018-08-17 19:27 | NUR ---
NURSE NOTES: Received report from Carolina RIVERA. Pt is A&O x3 laying supine in bed. No signs of pain or distress. Suprapubic catheter patent & draining yellow urine. Pt removed IV on the left foot. Will attempt to insert new IV access. Call light in reach, bed in lowest position, side rails up x2. Will continue to monitor pt.
--- NOTE | 2018-08-17 19:40 | NUR ---
HAND-OFF: Report given to NICOLE Pendleton.
[2018-08-17 20:00] VITALS: BP 132/79
[2018-08-17] MEDS: Epoetin Alfa-EPBX (NON ESRD)10,000 unit/ml vial SUBQ SCH (20:48)
--- NOTE | 2018-08-17 21:49 | NUR ---
NURSE NOTES: IV inserted in right foot by Charge Nurse. IV site dry, intact, & patent infusing fluids. Will continue to monitor pt.
[2018-08-18 04:00] VITALS: BP 115/60
[2018-08-18] MEDS: NovoLOG Insulin Flexpen SUBQ SCH ×6 (06:30→21:00)
--- NOTE | 2018-08-18 06:58 | NUR ---
NURSE NOTES: Pt 0630 BS is 62. Cup of juice given, BS at [address] Jacques notified and would like to hold morning Novolog.
--- NOTE | 2018-08-18 07:04 | General Progress Note ---
Assessment/Plan Problem List: (1) DKA (diabetic ketoacidoses) ICD Codes: E13.10 - DKA (diabetic ketoacidoses) SNOMED: 98203953 Qualifiers: Qualified Codes: E10.10 - Type 1 diabetes mellitus with ketoacidosis without coma (2) CKD (chronic kidney disease), stage III ICD Codes: N18.3 - CKD (chronic kidney disease), stage III SNOMED: 396416263 (3) encephalopathy due to metabolic do (4) Pulmonary HTN ICD Codes: I27.0 - Pulmonary HTN SNOMED: 97229737 Assessment/Plan reduce Levemir to 9 units bid - do not hold without notifying me reduce Novolog to 4 units ac tid continue NISS ac / hs Subjective Allergies: Coded Allergies: CEFEPIME (Verified Allergy, Intermediate, Rash, 03/01/18) Tolerates Carbapenem All Systems: reviewed and negative except above Subjective hypoglycemic this morning Objective Last 24 Hour Vital Signs Date Time Temp Pulse Resp B/P (MAP) Pulse Ox O2 Delivery O2 Flow Rate FiO2 08/18/18 04:00 98.8 76 17 115/60 97 Room Air 08/17/18 21:00 Room Air 08/17/18 20:16 82 16 Room Air 21 08/17/18 20:00 98.5 78 18 132/79 94 Room Air 08/17/18 16:00 98.0 81 18 126/78 99 Room Air 08/17/18 12:00 98.3 79 18 128/71 98 Room Air 08/17/18 09:00 Room Air 08/17/18 08:03 79 16 Room Air 21 08/17/18 08:00 98.4 76 18 131/69 97 Room Air Intake and Output 08/17/18 08/18/18 19:00 07:00 Intake Total 2225 ml 840 ml Output Total 1000 ml 700 ml Balance 1225 ml 140 ml Intake Oral 1400 ml 240 ml IV Total 825 ml 600 ml Output Urine Total 1000 ml 700 ml Laboratory Tests 08/17/18 07:50: White Blood Count 6.3, Red Blood Count 2.88L, Hemoglobin 9.0L, Hematocrit 28.6L , Mean Corpuscular Volume 99, Mean Corpuscular Hemoglobin 31.2H, Mean Corpuscular Hemoglobin Concent 31.4L, Red Cell Distribution Width 19.2H, Platelet Count 253, Mean Platelet Volume 5.9L, Neutrophils (%) (Auto) 68.3, Lymphocytes (%) (Auto) 20.5, Monocytes (%) (Auto) 6.3, Eosinophils (%) (Auto) 4.3H, Basophils (%) (Auto) 0.6, Sodium Level 136, Potassium Level 5.2H, Chloride Level 109H, Carbon Dioxide Level 14L, Anion Gap 13, Blood Urea Nitrogen 76H, Creatinine 7.0H, Estimat Glomerular Filtration Rate 8.0, Glucose Level 135#H, Calcium Level 8.3L Height (Feet): 6 Height (Inches): 0.00 Weight (Pounds): 148 General Appearance: no apparent distress Neck: normal alignment Cardiovascular: normal rate Respiratory/Chest: normal breath sounds Abdomen: normal bowel sounds Objective Current Medications Medications (Trade) Dose Ordered Sig/Dunia Route PRN Reason Start Time Stop Time Status Last Admin Dose Admin Albuterol/ Ipratropium (Albuterol/ Ipratropium) 3 ml Q4H PRN HHN Shortness of Breath 08/13/18 14:30 08/18/18 14:29 Dextrose (Dextrose 50%) 25 ml Q30M PRN IV Hypoglycemia 08/11/18 14:30 09/10/18 14:29 08/16/18 17:03 Dextrose (Dextrose 50%) 50 ml Q30M PRN IV Hypoglycemia 08/11/18 14:30 09/10/18 14:29 08/12/18 21:01 Duloxetine HCl (Cymbalta) 60 mg DAILY ORAL 08/18/18 09:00 09/17/18 08:59 Epoetin Jose (Epoetin Jose-EPBX(NON ESRD)) 10,000 unit WED-WED-WED SUBQ 08/12/18 21:00 09/02/18 20:59 08/17/18 20:48 Heparin Sodium (Porcine) (Heparin 5000 units/ml) 5,000 units EVERY 12 HOURS SUBQ 08/11/18 21:00 08/28/18 08:59 08/17/18 20:50 Insulin Aspart (NovoLOG) BEFORE MEALS AND HS SUBQ 08/11/18 16:30 09/10/18 11:29 08/17/18 11:44 Insulin Aspart (NovoLOG) 6 units NOVOTIAC SUBQ 08/15/18 11:50 09/10/18 07:59 08/17/18 17:21 Insulin Detemir (Levemir) 12 units BID SUBQ 08/15/18 09:00 09/10/18 08:59 08/17/18 18:14 Pantoprazole (Protonix) 40 mg BIAC ORAL 08/11/18 16:30 09/10/18 16:29 08/17/18 17:26 Quetiapine Fumarate (SEROquel) 25 mg Q12HR ORAL 08/11/18 21:00 09/08/18 12:14 08/17/18 20:47 Quetiapine Fumarate (SEROquel) 25 mg Q6H PRN ORAL For Anxiety 08/11/18 14:30 08/31/18 14:29 Sevelamer Carbonate (Renvela) 800 mg THREE TIMES A DAY ORAL 08/13/18 09:00 09/12/18 08:59 08/17/18 17:26 Sodium Chloride 1,000 ml @ 75 mls/hr [id number] IV 08/11/18 14:30 09/09/18 14:29 08/17/18 21:45 Vitamin B Complex/ Vit C/Folic Acid (Nephrovite) 1 tab DAILY ORAL 08/12/18 09:00 08/29/18 08:59 08/17/18 09:31 Item Value Date Time Bedside Blood Glucose 108 mg/dl 08/17/18 2100 Bedside Blood Glucose 104 mg/dl 08/17/18 1814 Bedside Blood Glucose 244 mg/dl H 08/17/18 1144 Bedside Blood Glucose 203 mg/dl H 08/17/18 0936 Bedside Blood Glucose 113 mg/dl 08/17/18 0637 Modesto Jacques MD Aug 18, 2018 07:04
--- NOTE | 2018-08-18 07:35 | NUR ---
NURSE NOTES: Patient awake sitting semi-thorpe position and eating breakfast; on room air, no sign of distress and shortness of breath. No sign of chest pain. IV on Right Foot and 1/2NS running @ 75cc; IV site covered with Kerlix to secure it. Last blood sugar 62 and PM nurse gave orange juice and reched blood sugar 71. NovoLog held and MD Jacques is aware, but for Levemir not to hold order received by PM nurse Keerthi. Supera-pubic cath in place and drains well. Right hand redness noticed. Bed at lowest position, side rails up x2, breaks engaged. Will keep on monitoring blood sugar and give medications as ordered.
--- NOTE | 2018-08-18 07:39 | NUR ---
HAND-OFF: Report given to Carolina RIVERA. Pt is stable.
--- NOTE | 2018-08-18 07:41 | Urology Progress Note ---
Assessment/Plan Assessment/Plan 1. Urinary retention. 2. Neurogenic bladder. 3. History of chronic suprapubic tube. 4. BPH history. 5. History of end-stage renal disease. 6. Hematuria. 7. Pyuria. 8. Proteinuria. 9. Renal cysts. monitor clinically keep sp tube, last exchanged 2/5 hand irrigated and do PRN cath secured to pt's leg s/p abx recheck urine cx at some point HD if pt allows Subjective Allergies: Coded Allergies: CEFEPIME (Verified Allergy, Intermediate, Rash, 03/01/18) Tolerates Carbapenem Subjective all noted, new sp tube draining well, occasional leakage Objective Last 24 Hour Vital Signs Date Time Temp Pulse Resp B/P (MAP) Pulse Ox O2 Delivery O2 Flow Rate FiO2 08/18/18 04:00 98.8 76 17 115/60 97 Room Air 08/17/18 21:00 Room Air 08/17/18 20:16 82 16 Room Air 21 08/17/18 20:00 98.5 78 18 132/79 94 Room Air 08/17/18 16:00 98.0 81 18 126/78 99 Room Air 08/17/18 12:00 98.3 79 18 128/71 98 Room Air 08/17/18 09:00 Room Air 08/17/18 08:03 79 16 Room Air 21 08/17/18 08:00 98.4 76 18 131/69 97 Room Air Intake and Output 08/17/18 08/18/18 19:00 07:00 Intake Total 2225 ml 840 ml Output Total 1000 ml 700 ml Balance 1225 ml 140 ml Intake Oral 1400 ml 240 ml IV Total 825 ml 600 ml Output Urine Total 1000 ml 700 ml Microbiology Date/Time Source Procedure Growth Status 07/29/18 05:29 Blood Blood Culture - Final NO GROWTH AFTER 5 DAYS Complete 07/29/18 00:30 Nasal Nares MRSA Culture - Final Staphylococcus Aureus - Mrsa Complete 07/29/18 05:15 Urine,Clean Catch Urine Culture - Final Gram Positive Cocci Complete 07/29/18 00:30 Rectum VRE Culture - Final Enterococcus Faecalis - Vre Enterococcus Faecium - Vre Complete Current Medications Medications (Trade) Dose Ordered Sig/Dunia Route PRN Reason Start Time Stop Time Status Last Admin Dose Admin Albuterol/ Ipratropium (Albuterol/ Ipratropium) 3 ml Q4H PRN HHN Shortness of Breath 08/13/18 14:30 08/18/18 14:29 Dextrose (Dextrose 50%) 25 ml Q30M PRN IV Hypoglycemia 08/11/18 14:30 09/10/18 14:29 08/16/18 17:03 Dextrose (Dextrose 50%) 50 ml Q30M PRN IV Hypoglycemia 08/11/18 14:30 09/10/18 14:29 08/12/18 21:01 Duloxetine HCl (Cymbalta) 60 mg DAILY ORAL 08/18/18 09:00 09/17/18 08:59 Epoetin Jose (Epoetin Jose-EPBX(NON ESRD)) 10,000 unit WED-WED-WED SUBQ 08/12/18 21:00 09/02/18 20:59 08/17/18 20:48 Heparin Sodium (Porcine) (Heparin 5000 units/ml) 5,000 units EVERY 12 HOURS SUBQ 08/11/18 21:00 08/28/18 08:59 08/17/18 20:50 Insulin Aspart (NovoLOG) BEFORE MEALS AND HS SUBQ 08/11/18 16:30 09/10/18 11:29 08/17/18 11:44 Insulin Aspart (NovoLOG) 4 units NOVOTIAC SUBQ 08/18/18 11:50 09/10/18 07:59 Insulin Detemir (Levemir) 9 units BID SUBQ 08/18/18 09:00 09/10/18 08:59 Pantoprazole (Protonix) 40 mg BIAC ORAL 08/11/18 16:30 09/10/18 16:29 08/18/18 07:03 Quetiapine Fumarate (SEROquel) 25 mg Q12HR ORAL 08/11/18 21:00 09/08/18 12:14 08/17/18 20:47 Quetiapine Fumarate (SEROquel) 25 mg Q6H PRN ORAL For Anxiety 08/11/18 14:30 08/31/18 14:29 Sevelamer Carbonate (Renvela) 800 mg THREE TIMES A DAY ORAL 08/13/18 09:00 09/12/18 08:59 08/17/18 17:26 Sodium Chloride 1,000 ml @ 75 mls/hr [id number] IV 08/11/18 14:30 09/09/18 14:29 08/18/18 07:03 Vitamin B Complex/ Vit C/Folic Acid (Nephrovite) 1 tab DAILY ORAL 08/12/18 09:00 08/29/18 08:59 08/17/18 09:31 Laboratory Tests 08/17/18 07:50: White Blood Count 6.3, Red Blood Count 2.88L, Hemoglobin 9.0L, Hematocrit 28.6L , Mean Corpuscular Volume 99, Mean Corpuscular Hemoglobin 31.2H, Mean Corpuscular Hemoglobin Concent 31.4L, Red Cell Distribution Width 19.2H, Platelet Count 253, Mean Platelet Volume 5.9L, Neutrophils (%) (Auto) 68.3, Lymphocytes (%) (Auto) 20.5, Monocytes (%) (Auto) 6.3, Eosinophils (%) (Auto) 4.3H, Basophils (%) (Auto) 0.6, Sodium Level 136, Potassium Level 5.2H, Chloride Level 109H, Carbon Dioxide Level 14L, Anion Gap 13, Blood Urea Nitrogen 76H, Creatinine 7.0H, Estimat Glomerular Filtration Rate 8.0, Glucose Level 135#H, Calcium Level 8.3L Height (Feet): 6 Height (Inches): 0.00 Weight (Pounds): 148 Objective exam stable Ye Rios MD Aug 18, 2018 07:41
[2018-08-18 08:00] VITALS: BP 148/87
[2018-08-18] MEDS: Nephrovite tab (Rena-Vite) ORAL SCH (08:13)
[2018-08-18] MEDS: DULoxetine 30mg cap ORAL SCH (08:14)
[2018-08-18] MEDS: Heparin 5000 units/ml inj SUBQ SCH ×2 (08:15→21:12)
[2018-08-18] MEDS: Levemir Flexpen SUBQ SCH ×2 (08:16→18:03)
--- NOTE | 2018-08-18 09:13 | Infectious Diseases Prog Note ---
Assessment/Plan Assessment/Plan Severe sepsis -likely 2ry to UTI- SP, s/p rx -u.a wbc tntc, nit neg, luek +3; ucx <10k GPC -Bcx Neg -CXR: Suspected atelectasis or scarring right Afebrile Leukocytosis, SP DKA RIVKA, improving hx of recent sepsis 2ry to UTI and bacteremia 07/08/18 UCx - P.a. MDR and Providencia 07/08/18 BCx ESBL Proteus and K. pneumo Dm2 HLD MDD with suicidal attempts in the past w/ resultant chronic encephalopathy CAD/MN BPH anemia asthma colonic polyps ESRD s/p renal and pancreas tx ~10 yrs ago now CKD 4 ConS bacteremia/line infection urinary retention s/p suprapubic catheter 09/2017 recurrent hematuria multiple hospital admissions recurrent UTI DNR Plan: - Monitor off abx -08/02 SP Meropenem d# 5 07/29 SP one dose Amikacin -07/22 SP Meropenem, #14 - f/u cx -Monitor CBC/CMP, temperatures Subjective Allergies: Coded Allergies: CEFEPIME (Verified Allergy, Intermediate, Rash, 03/01/18) Tolerates Carbapenem Subjective Afebrile CECIL Objective Vital Signs Last 24 Hour Vital Signs Date Time Temp Pulse Resp B/P (MAP) Pulse Ox O2 Delivery O2 Flow Rate FiO2 08/18/18 08:16 78 16 Room Air 21 08/18/18 08:00 97.7 87 19 148/87 97 Room Air 08/18/18 04:00 98.8 76 17 115/60 97 Room Air 08/17/18 21:00 Room Air 08/17/18 20:16 82 16 Room Air 21 08/17/18 20:00 98.5 78 18 132/79 94 Room Air 08/17/18 16:00 98.0 81 18 126/78 99 Room Air 08/17/18 12:00 98.3 79 18 128/71 98 Room Air Height (Feet): 6 Height (Inches): 0.00 Weight (Pounds): 148 Objective GEN: NAD, Sitting in bed HEENT: NCAT, MMM, EOMI Abdomen: soft, non-tender, ND Extremities: no C/C/E, Erythema at former infiltrated IV site resolving Current Medications Medications (Trade) Dose Ordered Sig/Dunia Route PRN Reason Start Time Stop Time Status Last Admin Dose Admin Albuterol/ Ipratropium (Albuterol/ Ipratropium) 3 ml Q4H PRN HHN Shortness of Breath 08/13/18 14:30 08/18/18 14:29 Dextrose (Dextrose 50%) 25 ml Q30M PRN IV Hypoglycemia 08/11/18 14:30 09/10/18 14:29 08/16/18 17:03 Dextrose (Dextrose 50%) 50 ml Q30M PRN IV Hypoglycemia 08/11/18 14:30 09/10/18 14:29 08/12/18 21:01 Duloxetine HCl (Cymbalta) 60 mg DAILY ORAL 08/18/18 09:00 09/17/18 08:59 08/18/18 08:14 Epoetin Jose (Epoetin Jose-EPBX(NON ESRD)) 10,000 unit WED-WED-WED SUBQ 08/12/18 21:00 09/02/18 20:59 08/17/18 20:48 Heparin Sodium (Porcine) (Heparin 5000 units/ml) 5,000 units EVERY 12 HOURS SUBQ 08/11/18 21:00 08/28/18 08:59 08/18/18 08:15 Insulin Aspart (NovoLOG) BEFORE MEALS AND HS SUBQ 08/11/18 16:30 09/10/18 11:29 08/17/18 11:44 Insulin Aspart (NovoLOG) 4 units NOVOTIAC SUBQ 08/18/18 11:50 09/10/18 07:59 Insulin Detemir (Levemir) 9 units BID SUBQ 08/18/18 09:00 09/10/18 08:59 08/18/18 08:16 Pantoprazole (Protonix) 40 mg BIAC ORAL 08/11/18 16:30 09/10/18 16:29 08/18/18 07:03 Quetiapine Fumarate (SEROquel) 25 mg Q12HR ORAL 08/11/18 21:00 09/08/18 12:14 08/18/18 08:13 Quetiapine Fumarate (SEROquel) 25 mg Q6H PRN ORAL For Anxiety 08/11/18 14:30 08/31/18 14:29 Sevelamer Carbonate (Renvela) 800 mg THREE TIMES A DAY ORAL 08/13/18 09:00 09/12/18 08:59 08/18/18 08:13 Sodium Chloride 1,000 ml @ 75 mls/hr [id number] IV 08/11/18 14:30 09/09/18 14:29 08/18/18 07:03 Vitamin B Complex/ Vit C/Folic Acid (Nephrovite) 1 tab DAILY ORAL 08/12/18 09:00 08/29/18 08:59 08/18/18 08:13 William Caputo MD Aug 18, 2018 09:13
[2018-08-18 09:26] LABS: BASOPHILS % (AUTO) 0.6 % (0.0-2.0); EOSINOPHILS % (AUTO) 5.2 % (0.0-3.0); HEMATOCRIT 29.2 % (42.0-52.0); HEMOGLOBIN 9.1 G/DL (14.2-18.0); LYMPHOCYTES % (AUTO) 22.3 % (20.0-45.0); MEAN CORPUSCULAR VOLUME 101 FL (80-99); MONOCYTES % (AUTO) 6.4 % (1.0-10.0); NEUTROPHILS % (AUTO) 65.5 % (45.0-75.0); PLATELET COUNT 310 K/UL (150-450); RED BLOOD COUNT 2.91 M/UL (4.70-6.10); RED CELL DISTRIBUTION WIDTH 18.8 % (11.6-14.8); WHITE BLOOD COUNT 5.8 K/UL (4.8-10.8)
[2018-08-18 09:57] LABS: ALANINE AMINOTRANSFERASE 11 U/L (12-78); ALBUMIN/GLOBULIN RATIO 0.5 (1.0-2.7); ALKALINE PHOSPHATASE 77 U/L (46-116); ANION GAP 13 mmol/L (5-15); ASPARTATE AMINO TRANSFERASE 14 U/L (15-37); BILIRUBIN,TOTAL 0.3 MG/DL (0.2-1.0); BLOOD UREA NITROGEN 72 mg/dL (7-18); CALCIUM 7.8 MG/DL (8.5-10.1); CARBON DIOXIDE 15 MMOL/L (21-32); CHLORIDE 107 MMOL/L (98-107); CREATININE 6.9 MG/DL (0.55-1.30); PHOSPHORUS 5.6 MG/DL (2.5-4.9); POTASSIUM 5.2 MMOL/L (3.5-5.1); SODIUM 135 MMOL/L (136-145)
[2018-08-18 12:00] VITALS: BP 130/70
--- NOTE | 2018-08-18 12:27 | Pulmonology Progress Note ---
Assessment/Plan Problems: (1) Encephalopathy acute (2) DKA (diabetic ketoacidoses) (3) Anemia in chronic kidney disease (4) CKD (chronic kidney disease), stage III (5) Major depressive disorder (6) Bladder outlet obstruction (7) Suprapubic catheter Assessment/Plan doing better again creatinine lower eating better no new complains Bs better controlled pt refusing HD check electrolytes continue DNR dvt prophylaxis Subjective ROS Limited/Unobtainable: No Constitutional: Reports: no symptoms HEENT: Repors: no symptoms Respiratory: Reports: no symptoms Allergies: Coded Allergies: CEFEPIME (Verified Allergy, Intermediate, Rash, 03/01/18) Tolerates Carbapenem Objective Last 24 Hour Vital Signs Date Time Temp Pulse Resp B/P (MAP) Pulse Ox O2 Delivery O2 Flow Rate FiO2 08/18/18 12:00 98.4 92 20 130/70 99 Room Air 08/18/18 09:00 Room Air 08/18/18 08:16 78 16 Room Air 21 08/18/18 08:00 97.7 87 19 148/87 97 Room Air 08/18/18 04:00 98.8 76 17 115/60 97 Room Air 08/17/18 21:00 Room Air 08/17/18 20:16 82 16 Room Air 21 08/17/18 20:00 98.5 78 18 132/79 94 Room Air 08/17/18 16:00 98.0 81 18 126/78 99 Room Air Intake and Output 08/17/18 08/18/18 19:00 07:00 Intake Total 2225 ml 840 ml Output Total 1000 ml 700 ml Balance 1225 ml 140 ml Intake Oral 1400 ml 240 ml IV Total 825 ml 600 ml Output Urine Total 1000 ml 700 ml Objective General Appearance: WD/WN HEENT: normocephalic, atraumatic, anicteric Respiratory/Chest: chest wall non-tender, lungs clear Breasts: no masses Cardiovascular: normal peripheral pulses, normal rate Abdomen: normal bowel sounds, soft, non tender Extremities: no cyanosis Skin: no rash Neurologic/Psychiatric: mine analyst II-XII grossly normal Lymphatic: no neck adenopathy Laboratory Tests 08/18/18 08:45: White Blood Count 5.8, Red Blood Count 2.91L, Hemoglobin 9.1L, Hematocrit 29.2L , Mean Corpuscular Volume 101H, Mean Corpuscular Hemoglobin 31.4H, Mean Corpuscular Hemoglobin Concent 31.2L, Red Cell Distribution Width 18.8H, Platelet Count 310, Mean Platelet Volume 5.6L, Neutrophils (%) (Auto) 65.5, Lymphocytes (%) (Auto) 22.3, Monocytes (%) (Auto) 6.4, Eosinophils (%) (Auto) 5.2H, Basophils (%) (Auto) 0.6, Sodium Level 135L, Potassium Level 5.2H, Chloride Level 107, Carbon Dioxide Level 15L, Anion Gap 13, Blood Urea Nitrogen 72H, Creatinine 6.9H, Estimat Glomerular Filtration Rate 8.1, Glucose Level 232H , Calcium Level 7.8L, Phosphorus Level 5.6H, Magnesium Level 1.9, Total Bilirubin 0.3, Aspartate Amino Transf (AST/SGOT) 14L, Alanine Aminotransferase ( ALT/SGPT) 11L, Alkaline Phosphatase 77, C-Reactive Protein, Quantitative 5.2H, Pro-B-Type Natriuretic Peptide 3252H, Total Protein 6.2L, Albumin 2.0L, Globulin 4.2, Albumin/Globulin Ratio 0.5L Current Medications Medications (Trade) Dose Ordered Sig/Dunia Route PRN Reason Start Time Stop Time Status Last Admin Dose Admin Albuterol/ Ipratropium (Albuterol/ Ipratropium) 3 ml Q4H PRN HHN Shortness of Breath 08/13/18 14:30 08/18/18 14:29 Clindamycin HCl/ Dextrose 50 ml @ 100 mls/hr Q8HR IV 08/18/18 14:00 08/25/18 13:59 Dextrose (Dextrose 50%) 25 ml Q30M PRN IV Hypoglycemia 08/11/18 14:30 09/10/18 14:29 08/16/18 17:03 Dextrose (Dextrose 50%) 50 ml Q30M PRN IV Hypoglycemia 08/11/18 14:30 09/10/18 14:29 08/12/18 21:01 Duloxetine HCl (Cymbalta) 60 mg DAILY ORAL 08/18/18 09:00 09/17/18 08:59 08/18/18 08:14 Epoetin Jose (Epoetin Jose-EPBX(NON ESRD)) 10,000 unit WED-WED-WED SUBQ 08/12/18 21:00 09/02/18 20:59 08/17/18 20:48 Heparin Sodium (Porcine) (Heparin 5000 units/ml) 5,000 units EVERY 12 HOURS SUBQ 08/11/18 21:00 08/28/18 08:59 08/18/18 08:15 Insulin Aspart (NovoLOG) BEFORE MEALS AND HS SUBQ 08/11/18 16:30 09/10/18 11:29 08/18/18 12:23 Insulin Aspart (NovoLOG) 4 units NOVOTIAC SUBQ 08/18/18 11:50 09/10/18 07:59 08/18/18 12:22 Insulin Detemir (Levemir) 9 units BID SUBQ 08/18/18 09:00 09/10/18 08:59 08/18/18 08:16 Pantoprazole (Protonix) 40 mg BIAC ORAL 08/11/18 16:30 09/10/18 16:29 08/18/18 07:03 Quetiapine Fumarate (SEROquel) 25 mg Q12HR ORAL 08/11/18 21:00 09/08/18 12:14 08/18/18 08:13 Quetiapine Fumarate (SEROquel) 25 mg Q6H PRN ORAL For Anxiety 08/11/18 14:30 08/31/18 14:29 Sevelamer Carbonate (Renvela) 800 mg THREE TIMES A DAY ORAL 08/13/18 09:00 09/12/18 08:59 08/18/18 08:13 Sodium Chloride 1,000 ml @ 75 mls/hr [id number] IV 08/11/18 14:30 09/09/18 14:29 08/18/18 07:03 Vitamin B Complex/ Vit C/Folic Acid (Nephrovite) 1 tab DAILY ORAL 08/12/18 09:00 08/29/18 08:59 08/18/18 08:13 Esdras Delgado MD Aug 18, 2018 12:27
--- NOTE | 2018-08-18 13:51 | General Progress Note ---
Assessment/Plan Problem List: (1) encephalopathy due to metabolic do (2) Major depressive disorder ICD Codes: F32.9 - Major depressive disorder, single episode, unspecified SNOMED: 441566953 Assessment/Plan increase Cymbalta 60mg qam seroquel 25mg q6hr prn agitation seroquel 25mg po bid provided ro/st Subjective Neurologic/Psychiatric: Reports: anxiety, depressed Allergies: Coded Allergies: CEFEPIME (Verified Allergy, Intermediate, Rash, 03/01/18) Tolerates Carbapenem Subjective the pt is pulled out iv and was severely agitated last night. received a cocktail Objective Last 24 Hour Vital Signs Date Time Temp Pulse Resp B/P (MAP) Pulse Ox O2 Delivery O2 Flow Rate FiO2 08/18/18 12:00 98.4 92 20 130/70 99 Room Air 08/18/18 09:00 Room Air 08/18/18 08:16 78 16 Room Air 21 08/18/18 08:00 97.7 87 19 148/87 97 Room Air 08/18/18 04:00 98.8 76 17 115/60 97 Room Air 08/17/18 21:00 Room Air 08/17/18 20:16 82 16 Room Air 21 08/17/18 20:00 98.5 78 18 132/79 94 Room Air 08/17/18 16:00 98.0 81 18 126/78 99 Room Air Intake and Output 08/17/18 08/18/18 19:00 07:00 Intake Total 2225 ml 840 ml Output Total 1000 ml 700 ml Balance 1225 ml 140 ml Intake Oral 1400 ml 240 ml IV Total 825 ml 600 ml Output Urine Total 1000 ml 700 ml Laboratory Tests 08/18/18 08:45: White Blood Count 5.8, Red Blood Count 2.91L, Hemoglobin 9.1L, Hematocrit 29.2L , Mean Corpuscular Volume 101H, Mean Corpuscular Hemoglobin 31.4H, Mean Corpuscular Hemoglobin Concent 31.2L, Red Cell Distribution Width 18.8H, Platelet Count 310, Mean Platelet Volume 5.6L, Neutrophils (%) (Auto) 65.5, Lymphocytes (%) (Auto) 22.3, Monocytes (%) (Auto) 6.4, Eosinophils (%) (Auto) 5.2H, Basophils (%) (Auto) 0.6, Sodium Level 135L, Potassium Level 5.2H, Chloride Level 107, Carbon Dioxide Level 15L, Anion Gap 13, Blood Urea Nitrogen 72H, Creatinine 6.9H, Estimat Glomerular Filtration Rate 8.1, Glucose Level 232H , Calcium Level 7.8L, Phosphorus Level 5.6H, Magnesium Level 1.9, Total Bilirubin 0.3, Aspartate Amino Transf (AST/SGOT) 14L, Alanine Aminotransferase ( ALT/SGPT) 11L, Alkaline Phosphatase 77, C-Reactive Protein, Quantitative 5.2H, Pro-B-Type Natriuretic Peptide 3252H, Total Protein 6.2L, Albumin 2.0L, Globulin 4.2, Albumin/Globulin Ratio 0.5L Height (Feet): 6 Height (Inches): 0.00 Weight (Pounds): 148 General Appearance: alert, confused, moderate distress Fatmata Lu MD Aug 18, 2018 13:51
--- NOTE | 2018-08-18 15:20 | Nephrology Progress Note ---
Assessment/Plan Problem List: (1) Acute on chronic renal failure (2) Bladder outlet obstruction (3) Anemia in chronic kidney disease (4) BPH (benign prostatic hypertrophy) (5) DKA (diabetic ketoacidoses) (6) Encephalopathy acute Assessment High Glucose now improved ESRD , in need of dialysis , refuses- presents with high K Encephalopathy , Metabolic Acidosis , Uremic and Diabetic Sever Anemia: Mixed etiology HTn, but presents with low BP Supra Pubic Cath, h/o UTI, BPH Psych disease CAD, elevated Troponin I s/p DKAs Plan Kayexelate for high K as needed Transfuse as needed Sugar control will do poorly in view of no dialysis plans DNR per orders DOES NOT AGREE TO DIALYSIS TREATMENT Subjective ROS Limited/Unobtainable: No Constitutional: Reports: malaise, weakness Objective Objective Last 24 Hour Vital Signs Date Time Temp Pulse Resp B/P (MAP) Pulse Ox O2 Delivery O2 Flow Rate FiO2 08/18/18 12:00 98.4 92 20 130/70 99 Room Air 08/18/18 09:00 Room Air 08/18/18 08:16 78 16 Room Air 21 08/18/18 08:00 97.7 87 19 148/87 97 Room Air 08/18/18 04:00 98.8 76 17 115/60 97 Room Air 08/17/18 21:00 Room Air 08/17/18 20:16 82 16 Room Air 21 08/17/18 20:00 98.5 78 18 132/79 94 Room Air 08/17/18 16:00 98.0 81 18 126/78 99 Room Air Intake and Output 08/17/18 08/18/18 19:00 07:00 Intake Total 2225 ml 840 ml Output Total 1000 ml 700 ml Balance 1225 ml 140 ml Intake Oral 1400 ml 240 ml IV Total 825 ml 600 ml Output Urine Total 1000 ml 700 ml Laboratory Tests 08/18/18 08:45: White Blood Count 5.8, Red Blood Count 2.91L, Hemoglobin 9.1L, Hematocrit 29.2L , Mean Corpuscular Volume 101H, Mean Corpuscular Hemoglobin 31.4H, Mean Corpuscular Hemoglobin Concent 31.2L, Red Cell Distribution Width 18.8H, Platelet Count 310, Mean Platelet Volume 5.6L, Neutrophils (%) (Auto) 65.5, Lymphocytes (%) (Auto) 22.3, Monocytes (%) (Auto) 6.4, Eosinophils (%) (Auto) 5.2H, Basophils (%) (Auto) 0.6, Sodium Level 135L, Potassium Level 5.2H, Chloride Level 107, Carbon Dioxide Level 15L, Anion Gap 13, Blood Urea Nitrogen 72H, Creatinine 6.9H, Estimat Glomerular Filtration Rate 8.1, Glucose Level 232H , Calcium Level 7.8L, Phosphorus Level 5.6H, Magnesium Level 1.9, Total Bilirubin 0.3, Aspartate Amino Transf (AST/SGOT) 14L, Alanine Aminotransferase ( ALT/SGPT) 11L, Alkaline Phosphatase 77, C-Reactive Protein, Quantitative 5.2H, Pro-B-Type Natriuretic Peptide 3252H, Total Protein 6.2L, Albumin 2.0L, Globulin 4.2, Albumin/Globulin Ratio 0.5L Height (Feet): 6 Height (Inches): 0.00 Weight (Pounds): 148 General Appearance: no apparent distress Objective no change Luis Chambers MD Aug 18, 2018 15:20
[2018-08-18 15:56] VITALS: BP 104/60
--- NOTE | 2018-08-18 19:20 | NUR ---
HAND-OFF: Report given to NICOLE Ngo. Addendum: 08/18/18 at 1929 by Latrice Israel RN Please disregard the Hand-Off report given to Huber, there was assignment change after I gave report to Huber.
--- NOTE | 2018-08-18 19:26 | Internal Med Progress Note ---
Subjective Physician Name Christopher Rosado Attending Physician Christopher Rosado MD Current Medications Medications (Trade) Dose Ordered Sig/Dunia Route PRN Reason Start Time Stop Time Status Last Admin Dose Admin Clindamycin HCl/ Dextrose 50 ml @ 100 mls/hr Q8HR IV 08/18/18 14:00 08/25/18 13:59 08/18/18 14:36 Dextrose (Dextrose 50%) 25 ml Q30M PRN IV Hypoglycemia 08/11/18 14:30 09/10/18 14:29 08/16/18 17:03 Dextrose (Dextrose 50%) 50 ml Q30M PRN IV Hypoglycemia 08/11/18 14:30 09/10/18 14:29 08/12/18 21:01 Duloxetine HCl (Cymbalta) 60 mg DAILY ORAL 08/18/18 09:00 09/17/18 08:59 08/18/18 08:14 Epoetin Jose (Epoetin Jose-EPBX(NON ESRD)) 10,000 unit WED-WED-WED SUBQ 08/12/18 21:00 09/02/18 20:59 08/17/18 20:48 Heparin Sodium (Porcine) (Heparin 5000 units/ml) 5,000 units EVERY 12 HOURS SUBQ 08/11/18 21:00 08/28/18 08:59 08/18/18 08:15 Insulin Aspart (NovoLOG) BEFORE MEALS AND HS SUBQ 08/11/18 16:30 09/10/18 11:29 08/18/18 17:26 Insulin Aspart (NovoLOG) 4 units NOVOTIAC SUBQ 08/18/18 11:50 09/10/18 07:59 08/18/18 17:26 Insulin Detemir (Levemir) 9 units BID SUBQ 08/18/18 09:00 09/10/18 08:59 08/18/18 18:03 Pantoprazole (Protonix) 40 mg BIAC ORAL 08/11/18 16:30 09/10/18 16:29 08/18/18 17:30 Quetiapine Fumarate (SEROquel) 25 mg Q12HR ORAL 08/11/18 21:00 09/08/18 12:14 08/18/18 08:13 Quetiapine Fumarate (SEROquel) 25 mg Q6H PRN ORAL For Anxiety 08/11/18 14:30 08/31/18 14:29 Sevelamer Carbonate (Renvela) 800 mg THREE TIMES A DAY ORAL 08/13/18 09:00 09/12/18 08:59 08/18/18 17:30 Sodium Chloride 1,000 ml @ 75 mls/hr [id number] IV 08/11/18 14:30 09/09/18 14:29 08/18/18 07:03 Vitamin B Complex/ Vit C/Folic Acid (Nephrovite) 1 tab DAILY ORAL 08/12/18 09:00 08/29/18 08:59 08/18/18 08:13 Allergies: Coded Allergies: CEFEPIME (Verified Allergy, Intermediate, Rash, 03/01/18) Tolerates Carbapenem Subjective awake, alert, responsive, NAD, feeling good no complaint. Objective Last Vital Signs Date Time Temp Pulse Resp B/P (MAP) Pulse Ox O2 Delivery O2 Flow Rate FiO2 08/18/18 15:56 98.1 78 19 104/60 98 Room Air 08/18/18 08:16 21 Laboratory Tests Test 08/18/18 08:45 White Blood Count 5.8 K/UL (4.8-10.8) Red Blood Count 2.91 M/UL (4.70-6.10) L Hemoglobin 9.1 G/DL (14.2-18.0) L Hematocrit 29.2 % (42.0-52.0) L Mean Corpuscular Volume 101 FL (80-99) H Mean Corpuscular Hemoglobin 31.4 PG (27.0-31.0) H Mean Corpuscular Hemoglobin Concent 31.2 G/DL (32.0-36.0) L Red Cell Distribution Width 18.8 % (11.6-14.8) H Platelet Count 310 K/UL (150-450) Mean Platelet Volume 5.6 FL (6.5-10.1) L Neutrophils (%) (Auto) 65.5 % (45.0-75.0) Lymphocytes (%) (Auto) 22.3 % (20.0-45.0) Monocytes (%) (Auto) 6.4 % (1.0-10.0) Eosinophils (%) (Auto) 5.2 % (0.0-3.0) H Basophils (%) (Auto) 0.6 % (0.0-2.0) Sodium Level 135 MMOL/L (136-145) L Potassium Level 5.2 MMOL/L (3.5-5.1) H Chloride Level 107 MMOL/L (98-107) Carbon Dioxide Level 15 MMOL/L (21-32) L Anion Gap 13 mmol/L (5-15) Blood Urea Nitrogen 72 mg/dL (7-18) H Creatinine 6.9 MG/DL (0.55-1.30) H Estimat Glomerular Filtration Rate 8.1 mL/min (>60) Glucose Level 232 MG/DL (74-106) H Calcium Level 7.8 MG/DL (8.5-10.1) L Phosphorus Level 5.6 MG/DL (2.5-4.9) H Magnesium Level 1.9 MG/DL (1.8-2.4) Total Bilirubin 0.3 MG/DL (0.2-1.0) Aspartate Amino Transf (AST/SGOT) 14 U/L (15-37) L Alanine Aminotransferase (ALT/SGPT) 11 U/L (12-78) L Alkaline Phosphatase 77 U/L (46-116) C-Reactive Protein, Quantitative 5.2 mg/dL (0.00-0.90) H Pro-B-Type Natriuretic Peptide 3252 pg/mL (0-125) H Total Protein 6.2 G/DL (6.4-8.2) L Albumin 2.0 G/DL (3.4-5.0) L Globulin 4.2 g/dL Albumin/Globulin Ratio 0.5 (1.0-2.7) L Intake and Output 08/17/18 08/18/18 19:00 07:00 Intake Total 2225 ml 840 ml Output Total 1000 ml 700 ml Balance 1225 ml 140 ml Intake Oral 1400 ml 240 ml IV Total 825 ml 600 ml Output Urine Total 1000 ml 700 ml Objective GENERAL: Awake, alert, responsive, no acute distress. HEAD AND NECK: Pupils are equal and reactive to light. Extraocular movements are intact in the right eye. Left eye blindness, Neck was supple. No JVD. LUNGS: fair air entry. No wheezing or rales. HEART: S1 and S2. Distant heart sounds. No Murmur ABDOMEN: Soft, nontender, and nontender. Suprapubic catheter was noted. EXTREMITIES: No cyanosis or clubbing. Bilateral lower extremities without any edema. NEUROLOGIC: Cranial nerves II through XII grossly intact. Motor is 5/5 in all extremities. Gait was not assessed due to the patient's status. Assessment/Plan Assessment/Plan 1. DKA. 2. Hypertension. 3. Dyslipidemia. 4. Diabetes type 1 with prior history of diabetic ketoacidosis. 5. Diabetic retinopathy of the left eye blindness. 6. End-stage renal disease secondary to diabetic nephrosclerosis. 7. Coronary artery disease with prior history of myocardial infarction. 8. 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 9. 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 10. Secondary hyperparathyroidism with vitamin D deficiency. 11. Anemia of chronic kidney disease. 12. Metabolic acidosis. 13. Depression with prior suicide attempt. 14. Acute encephalopathy due to toxic metabolic encephalopathy due to DKA. 15. Hyperkalemia PLAN: 1. Med/surg 2. Code status is DNR/DNI as per MALINDA in the chart. 3. Resume senior living medications. 4. Follow up with Labs and culture. 5. Broad spectrum antibiotic with Meropenem. 6. DVT prophylaxis, heparin subcutaneous. 7. We will follow up with Dr. Delgado with critical care , Dr. Chambers from Nephrology and Dr. Rich Wick from Infectious Disease. 8. We will follow up with the cultures and laboratory in the morning. 9. Better control with Levemir and Insulin sliding scale per endocrinology 10. Discharge planning: [facility] when bed available. Christopher Rosado MD Aug 18, 2018 19:26
--- NOTE | 2018-08-18 19:28 | NUR ---
HAND-OFF: Report given to NICOLE Lozada.
[2018-08-18 20:00] VITALS: BP 132/72
--- NOTE | 2018-08-18 21:32 | NUR ---
NURSE NOTES: Blood sugar 44. Dextrose given. Notify Dr. Jacques, made aware, no new order at this time.
[2018-08-19] VITALS: BP 114/63
[2018-08-19 04:00] VITALS: BP 143/83
[2018-08-19] MEDS: NovoLOG Insulin Flexpen SUBQ SCH ×7 (06:04→21:11)
--- NOTE | 2018-08-19 07:26 | NUR ---
HAND-OFF: Report given to Rima RIVERA.
[2018-08-19 08:00] VITALS: BP 129/69
--- NOTE | 2018-08-19 08:00 | NUR ---
NURSE NOTES: received patient in bed, awake, eating breakfast, no complaint of pain or discomfort. R foot IV access, infusing IVF, no sign of infiltration noted. RFA medial aspect with redness and swelling, no complaint of pain, only itchiness. Nurse told patient to avoid scratching as area is already very inflamed. Patient has supra-pubic catheter, with anchor on site, draining clear urine. Bed locked at the lowest position possible, call light within easy reach, siderails x2. Will continue to monitor patient and follow up with the plan of care.
[2018-08-19] MEDS: Nephrovite tab (Rena-Vite) ORAL SCH (08:35)
[2018-08-19] MEDS: DULoxetine 30mg cap ORAL SCH (08:35)
[2018-08-19] MEDS: Levemir Flexpen SUBQ SCH ×2 (08:39→19:00)
[2018-08-19] MEDS: Heparin 5000 units/ml inj SUBQ SCH ×2 (08:40→21:12)
--- NOTE | 2018-08-19 09:35 | Urology Progress Note ---
Assessment/Plan Assessment/Plan 1. Urinary retention. 2. Neurogenic bladder. 3. History of chronic suprapubic tube. 4. BPH history. 5. History of end-stage renal disease. 6. Hematuria. 7. Pyuria. 8. Proteinuria. 9. Renal cysts. monitor clinically keep sp tube, last exchanged 2/5 hand irrigated and do PRN cath secured to pt's leg s/p abx recheck urine cx at some point HD if pt allows Subjective Allergies: Coded Allergies: CEFEPIME (Verified Allergy, Intermediate, Rash, 03/01/18) Tolerates Carbapenem Subjective all noted, new sp tube draining well, occasional leakage Objective Last 24 Hour Vital Signs Date Time Temp Pulse Resp B/P (MAP) Pulse Ox O2 Delivery O2 Flow Rate FiO2 08/19/18 08:00 98.6 84 18 129/69 100 Room Air 08/19/18 04:00 97.4 89 18 143/83 99 Room Air 08/19/18 00:00 97.7 87 18 114/63 100 Room Air 08/18/18 21:00 Room Air 08/18/18 20:31 74 16 Room Air 21 08/18/18 20:00 97.5 82 17 132/72 97 Room Air 08/18/18 15:56 98.1 78 19 104/60 98 Room Air 08/18/18 12:00 98.4 92 20 130/70 99 Room Air Intake and Output 08/18/18 08/19/18 19:00 07:00 Intake Total 1550 ml 850 ml Output Total 1225 ml 1300 ml Balance 325 ml -450 ml Intake Oral 700 ml IV Total 850 ml 850 ml Output Urine Total 1225 ml 1300 ml Microbiology Date/Time Source Procedure Growth Status 07/29/18 05:29 Blood Blood Culture - Final NO GROWTH AFTER 5 DAYS Complete 07/29/18 00:30 Nasal Nares MRSA Culture - Final Staphylococcus Aureus - Mrsa Complete 07/29/18 05:15 Urine,Clean Catch Urine Culture - Final Gram Positive Cocci Complete 07/29/18 00:30 Rectum VRE Culture - Final Enterococcus Faecalis - Vre Enterococcus Faecium - Vre Complete Current Medications Medications (Trade) Dose Ordered Sig/Dunia Route PRN Reason Start Time Stop Time Status Last Admin Dose Admin Clindamycin HCl/ Dextrose 50 ml @ 100 mls/hr Q8HR IV 08/18/18 14:00 08/25/18 13:59 08/19/18 06:01 Dextrose (Dextrose 50%) 25 ml Q30M PRN IV Hypoglycemia 08/11/18 14:30 09/10/18 14:29 08/16/18 17:03 Dextrose (Dextrose 50%) 50 ml Q30M PRN IV Hypoglycemia 08/11/18 14:30 09/10/18 14:29 08/18/18 21:17 Duloxetine HCl (Cymbalta) 60 mg DAILY ORAL 08/18/18 09:00 09/17/18 08:59 08/19/18 08:35 Epoetin Jose (Epoetin Jose-EPBX(NON ESRD)) 10,000 unit WED-WED-WED SUBQ 08/12/18 21:00 09/02/18 20:59 08/17/18 20:48 Heparin Sodium (Porcine) (Heparin 5000 units/ml) 5,000 units EVERY 12 HOURS SUBQ 08/11/18 21:00 08/28/18 08:59 08/19/18 08:40 Insulin Aspart (NovoLOG) BEFORE MEALS AND HS SUBQ 08/11/18 16:30 09/10/18 11:29 08/18/18 17:26 Insulin Aspart (NovoLOG) 4 units NOVOTIAC SUBQ 08/18/18 11:50 09/10/18 07:59 08/19/18 06:04 Insulin Detemir (Levemir) 9 units BID SUBQ 08/18/18 09:00 09/10/18 08:59 08/19/18 08:39 Pantoprazole (Protonix) 40 mg BIAC ORAL 08/11/18 16:30 09/10/18 16:29 08/19/18 06:01 Quetiapine Fumarate (SEROquel) 25 mg Q12HR ORAL 08/11/18 21:00 09/08/18 12:14 08/19/18 08:36 Quetiapine Fumarate (SEROquel) 25 mg Q6H PRN ORAL For Anxiety 08/11/18 14:30 08/31/18 14:29 Sevelamer Carbonate (Renvela) 800 mg THREE TIMES A DAY ORAL 08/13/18 09:00 09/12/18 08:59 08/19/18 08:36 Sodium Chloride 1,000 ml @ 75 mls/hr [id number] IV 08/11/18 14:30 09/09/18 14:29 08/18/18 21:04 Vitamin B Complex/ Vit C/Folic Acid (Nephrovite) 1 tab DAILY ORAL 08/12/18 09:00 08/29/18 08:59 08/19/18 08:35 Height (Feet): 6 Height (Inches): 0.00 Weight (Pounds): 148 Objective exam stable Ye Rios MD Aug 19, 2018 09:35
--- NOTE | 2018-08-19 10:29 | Infectious Diseases Prog Note ---
Assessment/Plan Assessment/Plan Right wrist IV site infection Severe sepsis - Resolved -likely 2ry to UTI- SP, s/p rx -u.a wbc tntc, nit neg, luek +3; ucx <10k GPC -Bcx Neg -CXR: Suspected atelectasis or scarring right Afebrile Leukocytosis, SP DKA RIVKA, improving hx of recent sepsis 2ry to UTI and bacteremia 07/08/18 UCx - P.a. MDR and Providencia 07/08/18 BCx ESBL Proteus and K. pneumo Dm2 HLD MDD with suicidal attempts in the past w/ resultant chronic encephalopathy CAD/GA BPH anemia asthma colonic polyps ESRD s/p renal and pancreas tx ~10 yrs ago now CKD 4 ConS bacteremia/line infection urinary retention s/p suprapubic catheter 09/2017 recurrent hematuria multiple hospital admissions recurrent UTI DNR Plan: -Continue Bactrim DS BID #2/ for infected IV site -08/02 SP Meropenem d# 5 07/29 SP one dose Amikacin -07/22 SP Meropenem, #14 - f/u cx -Monitor CBC/CMP, temperatures Subjective Allergies: Coded Allergies: CEFEPIME (Verified Allergy, Intermediate, Rash, 03/01/18) Tolerates Carbapenem Subjective Afebrile right wrist improving Objective Vital Signs Last 24 Hour Vital Signs Date Time Temp Pulse Resp B/P (MAP) Pulse Ox O2 Delivery O2 Flow Rate FiO2 08/19/18 09:00 Room Air 08/19/18 08:00 98.6 84 18 129/69 100 Room Air 08/19/18 04:00 97.4 89 18 143/83 99 Room Air 08/19/18 00:00 97.7 87 18 114/63 100 Room Air 08/18/18 21:00 Room Air 08/18/18 20:31 74 16 Room Air 21 08/18/18 20:00 97.5 82 17 132/72 97 Room Air 08/18/18 15:56 98.1 78 19 104/60 98 Room Air 08/18/18 12:00 98.4 92 20 130/70 99 Room Air Height (Feet): 6 Height (Inches): 0.00 Weight (Pounds): 148 Objective GEN: NAD, Sitting in bed HEENT: NCAT, MMM, EOMI Abdomen: soft, non-tender, ND Extremities: no C/C/E, Erythema at former infiltrated IV site minimal drainage Current Medications Medications (Trade) Dose Ordered Sig/Dunia Route PRN Reason Start Time Stop Time Status Last Admin Dose Admin Clindamycin HCl/ Dextrose 50 ml @ 100 mls/hr Q8HR IV 08/18/18 14:00 08/25/18 13:59 08/19/18 06:01 Dextrose (Dextrose 50%) 25 ml Q30M PRN IV Hypoglycemia 08/11/18 14:30 09/10/18 14:29 08/16/18 17:03 Dextrose (Dextrose 50%) 50 ml Q30M PRN IV Hypoglycemia 08/11/18 14:30 09/10/18 14:29 08/18/18 21:17 Duloxetine HCl (Cymbalta) 60 mg DAILY ORAL 08/18/18 09:00 09/17/18 08:59 08/19/18 08:35 Epoetin Jose (Epoetin Jose-EPBX(NON ESRD)) 10,000 unit WED-WED-WED SUBQ 08/12/18 21:00 09/02/18 20:59 08/17/18 20:48 Heparin Sodium (Porcine) (Heparin 5000 units/ml) 5,000 units EVERY 12 HOURS SUBQ 08/11/18 21:00 08/28/18 08:59 08/19/18 08:40 Insulin Aspart (NovoLOG) BEFORE MEALS AND HS SUBQ 08/11/18 16:30 09/10/18 11:29 08/18/18 17:26 Insulin Aspart (NovoLOG) 4 units NOVOTIAC SUBQ 08/18/18 11:50 09/10/18 07:59 08/19/18 06:04 Insulin Detemir (Levemir) 9 units BID SUBQ 08/18/18 09:00 09/10/18 08:59 08/19/18 08:39 Pantoprazole (Protonix) 40 mg BIAC ORAL 08/11/18 16:30 09/10/18 16:29 08/19/18 06:01 Quetiapine Fumarate (SEROquel) 25 mg Q12HR ORAL 08/11/18 21:00 09/08/18 12:14 08/19/18 08:36 Quetiapine Fumarate (SEROquel) 25 mg Q6H PRN ORAL For Anxiety 08/11/18 14:30 08/31/18 14:29 Sevelamer Carbonate (Renvela) 800 mg THREE TIMES A DAY ORAL 08/13/18 09:00 09/12/18 08:59 08/19/18 08:36 Sodium Chloride 1,000 ml @ 75 mls/hr [id number] IV 08/11/18 14:30 09/09/18 14:29 08/18/18 21:04 Vitamin B Complex/ Vit C/Folic Acid (Nephrovite) 1 tab DAILY ORAL 08/12/18 09:00 08/29/18 08:59 08/19/18 08:35 William Caputo MD Aug 19, 2018 10:29
[2018-08-19 12:00] VITALS: BP 118/69
--- NOTE | 2018-08-19 12:53 | General Progress Note ---
Assessment/Plan Problem List: (1) encephalopathy due to metabolic do (2) Major depressive disorder ICD Codes: F32.9 - Major depressive disorder, single episode, unspecified SNOMED: 723874784 Status: stable, progressing Assessment/Plan increase Cymbalta 60mg qam seroquel 25mg q6hr prn agitation seroquel 25mg po bid provided ro/st Subjective Neurologic/Psychiatric: Reports: anxiety, depressed, emotional problems Allergies: Coded Allergies: CEFEPIME (Verified Allergy, Intermediate, Rash, 03/01/18) Tolerates Carbapenem Subjective the pt is doing better today Objective Last 24 Hour Vital Signs Date Time Temp Pulse Resp B/P (MAP) Pulse Ox O2 Delivery O2 Flow Rate FiO2 08/19/18 09:34 84 20 Room Air 21 08/19/18 09:00 Room Air 08/19/18 08:00 98.6 84 18 129/69 100 Room Air 08/19/18 04:00 97.4 89 18 143/83 99 Room Air 08/19/18 00:00 97.7 87 18 114/63 100 Room Air 08/18/18 21:00 Room Air 08/18/18 20:31 74 16 Room Air 21 08/18/18 20:00 97.5 82 17 132/72 97 Room Air 08/18/18 15:56 98.1 78 19 104/60 98 Room Air Intake and Output 08/18/18 08/19/18 19:00 07:00 Intake Total 1550 ml 850 ml Output Total 1225 ml 1300 ml Balance 325 ml -450 ml Intake Oral 700 ml IV Total 850 ml 850 ml Output Urine Total 1225 ml 1300 ml Height (Feet): 6 Height (Inches): 0.00 Weight (Pounds): 148 General Appearance: WD/WN, no apparent distress, alert Fatmata Lu MD Aug 19, 2018 12:53
--- NOTE | 2018-08-19 13:51 | Pulmonology Progress Note ---
Assessment/Plan Problems: (1) Encephalopathy acute (2) DKA (diabetic ketoacidoses) (3) Anemia in chronic kidney disease (4) CKD (chronic kidney disease), stage III (5) Major depressive disorder (6) Bladder outlet obstruction (7) Suprapubic catheter Assessment/Plan doing better again creatinine lower eating better no new complains Bs better controlled pt refusing HD check electrolytes continue DNR dvt prophylaxis Subjective ROS Limited/Unobtainable: No Constitutional: Reports: no symptoms HEENT: Repors: no symptoms Respiratory: Reports: no symptoms Allergies: Coded Allergies: CEFEPIME (Verified Allergy, Intermediate, Rash, 03/01/18) Tolerates Carbapenem Objective Last 24 Hour Vital Signs Date Time Temp Pulse Resp B/P (MAP) Pulse Ox O2 Delivery O2 Flow Rate FiO2 08/19/18 09:34 84 20 Room Air 21 08/19/18 09:00 Room Air 08/19/18 08:00 98.6 84 18 129/69 100 Room Air 08/19/18 04:00 97.4 89 18 143/83 99 Room Air 08/19/18 00:00 97.7 87 18 114/63 100 Room Air 08/18/18 21:00 Room Air 08/18/18 20:31 74 16 Room Air 21 08/18/18 20:00 97.5 82 17 132/72 97 Room Air 08/18/18 15:56 98.1 78 19 104/60 98 Room Air Intake and Output 08/18/18 08/19/18 19:00 07:00 Intake Total 1550 ml 850 ml Output Total 1225 ml 1300 ml Balance 325 ml -450 ml Intake Oral 700 ml IV Total 850 ml 850 ml Output Urine Total 1225 ml 1300 ml Objective General Appearance: WD/WN HEENT: normocephalic, atraumatic, anicteric Respiratory/Chest: chest wall non-tender, lungs clear Breasts: no masses Cardiovascular: normal peripheral pulses, normal rate Abdomen: normal bowel sounds, soft, non tender Extremities: no cyanosis Skin: no rash 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 normal Lymphatic: no neck adenopathy Current Medications Medications (Trade) Dose Ordered Sig/Dunia Route PRN Reason Start Time Stop Time Status Last Admin Dose Admin Clindamycin HCl/ Dextrose 50 ml @ 100 mls/hr Q8HR IV 08/18/18 14:00 08/25/18 13:59 08/19/18 13:16 Dextrose (Dextrose 50%) 25 ml Q30M PRN IV Hypoglycemia 08/11/18 14:30 09/10/18 14:29 08/16/18 17:03 Dextrose (Dextrose 50%) 50 ml Q30M PRN IV Hypoglycemia 08/11/18 14:30 09/10/18 14:29 08/18/18 21:17 Duloxetine HCl (Cymbalta) 60 mg DAILY ORAL 08/18/18 09:00 09/17/18 08:59 08/19/18 08:35 Epoetin Jose (Epoetin Jose-EPBX(NON ESRD)) 10,000 unit WED-WED-WED SUBQ 08/12/18 21:00 09/02/18 20:59 08/17/18 20:48 Heparin Sodium (Porcine) (Heparin 5000 units/ml) 5,000 units EVERY 12 HOURS SUBQ 08/11/18 21:00 08/28/18 08:59 08/19/18 08:40 Insulin Aspart (NovoLOG) BEFORE MEALS AND HS SUBQ 08/11/18 16:30 09/10/18 11:29 08/19/18 12:42 Insulin Aspart (NovoLOG) 4 units NOVOTIAC SUBQ 08/18/18 11:50 09/10/18 07:59 08/19/18 12:44 Insulin Detemir (Levemir) 9 units BID SUBQ 08/18/18 09:00 09/10/18 08:59 08/19/18 08:39 Pantoprazole (Protonix) 40 mg BIAC ORAL 08/11/18 16:30 09/10/18 16:29 08/19/18 06:01 Quetiapine Fumarate (SEROquel) 25 mg Q12HR ORAL 08/11/18 21:00 09/08/18 12:14 08/19/18 08:36 Quetiapine Fumarate (SEROquel) 25 mg Q6H PRN ORAL For Anxiety 08/11/18 14:30 08/31/18 14:29 Sevelamer Carbonate (Renvela) 800 mg THREE TIMES A DAY ORAL 08/13/18 09:00 09/12/18 08:59 08/19/18 12:44 Sodium Chloride 1,000 ml @ 75 mls/hr [id number] IV 08/11/18 14:30 09/09/18 14:29 08/18/18 21:04 Vitamin B Complex/ Vit C/Folic Acid (Nephrovite) 1 tab DAILY ORAL 08/12/18 09:00 08/29/18 08:59 08/19/18 08:35 Esdras Delgado MD Aug 19, 2018 13:51
--- NOTE | 2018-08-19 14:50 | Nephrology Progress Note ---
Assessment/Plan Problem List: (1) Acute on chronic renal failure (2) Bladder outlet obstruction (3) Anemia in chronic kidney disease (4) BPH (benign prostatic hypertrophy) (5) DKA (diabetic ketoacidoses) (6) Encephalopathy acute Assessment High Glucose now improved ESRD , in need of dialysis , refuses- presents with high K Encephalopathy , Metabolic Acidosis , Uremic and Diabetic Sever Anemia: Mixed etiology HTn, but presents with low BP Supra Pubic Cath, h/o UTI, BPH Psych disease CAD, elevated Troponin I s/p DKAs Plan no labs today Kayexelate for high K as needed Transfuse as needed Sugar control will do poorly in view of no dialysis plans DNR per orders DOES NOT AGREE TO DIALYSIS TREATMENT DC planning in process Subjective ROS Limited/Unobtainable: No Constitutional: Reports: malaise, weakness Objective Objective Last 24 Hour Vital Signs Date Time Temp Pulse Resp B/P (MAP) Pulse Ox O2 Delivery O2 Flow Rate FiO2 08/19/18 12:00 97.2 77 20 118/69 98 Room Air 08/19/18 09:34 84 20 Room Air 21 08/19/18 09:00 Room Air 08/19/18 08:00 98.6 84 18 129/69 100 Room Air 08/19/18 04:00 97.4 89 18 143/83 99 Room Air 08/19/18 00:00 97.7 87 18 114/63 100 Room Air 08/18/18 21:00 Room Air 08/18/18 20:31 74 16 Room Air 21 08/18/18 20:00 97.5 82 17 132/72 97 Room Air 08/18/18 15:56 98.1 78 19 104/60 98 Room Air Intake and Output 08/18/18 08/19/18 19:00 07:00 Intake Total 1550 ml 850 ml Output Total 1225 ml 1300 ml Balance 325 ml -450 ml Intake Oral 700 ml IV Total 850 ml 850 ml Output Urine Total 1225 ml 1300 ml Height (Feet): 6 Height (Inches): 0.00 Weight (Pounds): 148 General Appearance: no apparent distress Cardiovascular: normal rate Respiratory/Chest: decreased breath sounds Abdomen: soft Objective no change Luis Chambers MD Aug 19, 2018 14:50
[2018-08-19 16:00] VITALS: BP 99/53
--- NOTE | 2018-08-19 16:26 | NUR ---
NURSE NOTES: not given Novolog S/S or ATC as BS = 67. Given 1 cup of OJ.
--- NOTE | 2018-08-19 16:41 | Internal Med Progress Note ---
Subjective Physician Name Christopher Rosado Attending Physician Christopher Rosado MD Current Medications Medications (Trade) Dose Ordered Sig/Dunia Route PRN Reason Start Time Stop Time Status Last Admin Dose Admin Clindamycin HCl/ Dextrose 50 ml @ 100 mls/hr Q8HR IV 08/18/18 14:00 08/25/18 13:59 08/19/18 13:16 Dextrose (Dextrose 50%) 25 ml Q30M PRN IV Hypoglycemia 08/11/18 14:30 09/10/18 14:29 08/16/18 17:03 Dextrose (Dextrose 50%) 50 ml Q30M PRN IV Hypoglycemia 08/11/18 14:30 09/10/18 14:29 08/18/18 21:17 Duloxetine HCl (Cymbalta) 60 mg DAILY ORAL 08/18/18 09:00 09/17/18 08:59 08/19/18 08:35 Epoetin Jose (Epoetin Jose-EPBX(NON ESRD)) 10,000 unit WED-WED-WED SUBQ 08/12/18 21:00 09/02/18 20:59 08/17/18 20:48 Heparin Sodium (Porcine) (Heparin 5000 units/ml) 5,000 units EVERY 12 HOURS SUBQ 08/11/18 21:00 08/28/18 08:59 08/19/18 08:40 Insulin Aspart (NovoLOG) BEFORE MEALS AND HS SUBQ 08/11/18 16:30 09/10/18 11:29 08/19/18 12:42 Insulin Aspart (NovoLOG) 4 units NOVOTIAC SUBQ 08/18/18 11:50 09/10/18 07:59 08/19/18 12:44 Insulin Detemir (Levemir) 9 units BID SUBQ 08/18/18 09:00 09/10/18 08:59 08/19/18 08:39 Pantoprazole (Protonix) 40 mg BIAC ORAL 08/11/18 16:30 09/10/18 16:29 08/19/18 16:33 Quetiapine Fumarate (SEROquel) 25 mg Q12HR ORAL 08/11/18 21:00 09/08/18 12:14 08/19/18 08:36 Quetiapine Fumarate (SEROquel) 25 mg Q6H PRN ORAL For Anxiety 08/11/18 14:30 08/31/18 14:29 Sevelamer Carbonate (Renvela) 800 mg THREE TIMES A DAY ORAL 08/13/18 09:00 09/12/18 08:59 08/19/18 12:44 Sodium Chloride 1,000 ml @ 75 mls/hr [id number] IV 08/11/18 14:30 09/09/18 14:29 08/19/18 14:27 Vitamin B Complex/ Vit C/Folic Acid (Nephrovite) 1 tab DAILY ORAL 08/12/18 09:00 08/29/18 08:59 08/19/18 08:35 Allergies: Coded Allergies: CEFEPIME (Verified Allergy, Intermediate, Rash, 03/01/18) Tolerates Carbapenem Subjective awake, alert, responsive, NAD, feeling good no complaint. Objective Last Vital Signs Date Time Temp Pulse Resp B/P (MAP) Pulse Ox O2 Delivery O2 Flow Rate FiO2 08/19/18 16:00 97.8 70 18 99/53 98 Room Air 08/19/18 09:34 21 Intake and Output 08/18/18 08/19/18 19:00 07:00 Intake Total 1550 ml 850 ml Output Total 1225 ml 1300 ml Balance 325 ml -450 ml Intake Oral 700 ml IV Total 850 ml 850 ml Output Urine Total 1225 ml 1300 ml Objective GENERAL: Awake, alert, responsive, no acute distress. HEAD AND NECK: Pupils are equal and reactive to light. Extraocular movements are intact in the right eye. Left eye blindness, Neck was supple. No JVD. LUNGS: fair air entry. No wheezing or rales. HEART: S1 and S2. Distant heart sounds. No Murmur ABDOMEN: Soft, nontender, and nontender. Suprapubic catheter was noted. EXTREMITIES: No cyanosis or clubbing. Bilateral lower extremities without any edema. NEUROLOGIC: Cranial nerves II through XII grossly intact. Motor is 5/5 in all extremities. Gait was not assessed due to the patient's status. Assessment/Plan Assessment/Plan 1. DKA. 2. Hypertension. 3. Dyslipidemia. 4. Diabetes type 1 with prior history of diabetic ketoacidosis. 5. Diabetic retinopathy of the left eye blindness. 6. End-stage renal disease secondary to diabetic nephrosclerosis. 7. Coronary artery disease with prior history of myocardial infarction. 8. 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 9. 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 10. Secondary hyperparathyroidism with vitamin D deficiency. 11. Anemia of chronic kidney disease. 12. Metabolic acidosis. 13. Depression with prior suicide attempt. 14. Acute encephalopathy due to toxic metabolic encephalopathy due to DKA. 15. Hyperkalemia PLAN: 1. Med/surg 2. Code status is DNR/DNI as per POLST in the chart. 3. Resume alf medications. 4. Follow up with Labs and culture. 5. Broad spectrum antibiotic with Meropenem. 6. DVT prophylaxis, heparin subcutaneous. 7. We will follow up with Dr. Delgado with critical care , Dr. Chambers from Nephrology and Dr. Rich Wick from Infectious Disease. 8. We will follow up with the cultures and laboratory in the morning. 9. Better control with Levemir and Insulin sliding scale per endocrinology 10. Discharge planning: [facility] when bed available. Christopher Rosado MD Aug 19, 2018 16:41
--- NOTE | 2018-08-19 19:24 | NUR ---
HAND-OFF: Report given to NICOLE Ibarra.
[2018-08-19 20:00] VITALS: BP 108/57
--- NOTE | 2018-08-19 20:10 | NUR ---
NURSE NOTES: Received patient awake in bed, able to verbalize needs, denies pain, no s/s of acute distress. Will monitor blood glucose closely. IV site asymptomatic. Bed on lowest position, 2 side rails up, call light and belongings within reach.
[2018-08-19] MEDS: Epoetin Alfa-EPBX (NON ESRD)10,000 unit/ml vial SUBQ SCH (20:58)
[2018-08-20] VITALS: BP 110/55
[2018-08-20 04:00] VITALS: BP 108/52
[2018-08-20] MEDS: NovoLOG Insulin Flexpen SUBQ SCH ×7 (05:47→21:47)
[2018-08-20] MEDS ORDERED: 1/2 NS 1000ml IV ONE (07:40)
--- NOTE | 2018-08-20 07:55 | General Progress Note ---
Assessment/Plan Problem List: (1) DKA (diabetic ketoacidoses) ICD Codes: E13.10 - DKA (diabetic ketoacidoses) SNOMED: [id number] Qualifiers: Qualified Codes: E10.10 - Type 1 diabetes mellitus with ketoacidosis without coma (2) CKD (chronic kidney disease), stage III ICD Codes: N18.3 - CKD (chronic kidney disease), stage III SNOMED: 414454237 (3) encephalopathy due to metabolic do (4) Pulmonary HTN ICD Codes: I27.0 - Pulmonary HTN SNOMED: 03077818 Assessment/Plan reduce Levemir to 8 units bid - do not hold without notifying me continue Novolog 4 units ac tid continue NISS ac / hs Subjective ROS Limited/Unobtainable: Yes Allergies: Coded Allergies: CEFEPIME (Verified Allergy, Intermediate, Rash, 03/01/18) Tolerates Carbapenem Subjective events noted Item Value Date Time Bedside Blood Glucose Critically Low Result 08/20/18 0709 Bedside Blood Glucose 98 mg/dl 08/20/18 0553 Bedside Blood Glucose 121 mg/dl H 08/19/18 2111 Bedside Blood Glucose 67 mg/dl L 08/19/18 1625 Bedside Blood Glucose 305 mg/dl H 08/19/18 1244 Objective Last 24 Hour Vital Signs Date Time Temp Pulse Resp B/P (MAP) Pulse Ox O2 Delivery O2 Flow Rate FiO2 08/20/18 04:00 98.4 76 20 108/52 98 Room Air 08/20/18 00:00 98.0 79 20 110/55 98 Room Air 08/19/18 21:00 Room Air 08/19/18 20:00 97.8 79 18 108/57 98 Room Air 08/19/18 16:00 97.8 70 18 99/53 98 Room Air 08/19/18 12:00 97.2 77 20 118/69 98 Room Air 08/19/18 09:34 84 20 Room Air 21 08/19/18 09:00 Room Air 08/19/18 08:00 98.6 84 18 129/69 100 Room Air Intake and Output 08/19/18 08/20/18 18:59 06:59 Intake Total 1515 ml Output Total 550 ml 1400 ml Balance 965 ml -1400 ml Intake Oral 790 ml IV Total 725 ml Output Urine Total 550 ml 1400 ml Height (Feet): 6 Height (Inches): 0.00 Weight (Pounds): 148 General Appearance: no apparent distress Neck: normal alignment Cardiovascular: normal rate Respiratory/Chest: normal breath sounds Abdomen: normal bowel sounds Objective Current Medications Medications (Trade) Dose Ordered Sig/Dunia Route PRN Reason Start Time Stop Time Status Last Admin Dose Admin Clindamycin HCl/ Dextrose 50 ml @ 100 mls/hr Q8HR IV 08/18/18 14:00 08/25/18 13:59 08/20/18 05:13 Dextrose (Dextrose 50%) 25 ml Q30M PRN IV Hypoglycemia 08/11/18 14:30 09/10/18 14:29 08/16/18 17:03 Dextrose (Dextrose 50%) 50 ml Q30M PRN IV Hypoglycemia 08/11/18 14:30 09/10/18 14:29 08/18/18 21:17 Duloxetine HCl (Cymbalta) 60 mg DAILY ORAL 08/18/18 09:00 09/17/18 08:59 08/19/18 08:35 Epoetin Jose (Epoetin Jose-EPBX(NON ESRD)) 10,000 unit WED-WED-WED SUBQ 08/12/18 21:00 09/02/18 20:59 08/19/18 20:58 Heparin Sodium (Porcine) (Heparin 5000 units/ml) 5,000 units EVERY 12 HOURS SUBQ 08/11/18 21:00 08/28/18 08:59 08/19/18 21:12 Insulin Aspart (NovoLOG) BEFORE MEALS AND HS SUBQ 08/11/18 16:30 09/10/18 11:29 08/19/18 21:11 Insulin Aspart (NovoLOG) 4 units NOVOTIAC SUBQ 08/18/18 11:50 09/10/18 07:59 08/20/18 05:53 Insulin Detemir (Levemir) 9 units BID SUBQ 08/18/18 09:00 09/10/18 08:59 08/19/18 19:00 Pantoprazole (Protonix) 40 mg BIAC ORAL 08/11/18 16:30 09/10/18 16:29 08/20/18 05:55 Quetiapine Fumarate (SEROquel) 25 mg Q12HR ORAL 08/11/18 21:00 09/08/18 12:14 08/19/18 20:57 Quetiapine Fumarate (SEROquel) 25 mg Q6H PRN ORAL For Anxiety 08/11/18 14:30 08/31/18 14:29 Sevelamer Carbonate (Renvela) 800 mg THREE TIMES A DAY ORAL 08/13/18 09:00 09/12/18 08:59 08/19/18 18:58 Sodium Chloride 1,000 ml @ 75 mls/hr [id number] IV 08/11/18 14:30 09/09/18 14:29 08/19/18 14:27 Vitamin B Complex/ Vit C/Folic Acid (Nephrovite) 1 tab DAILY ORAL 08/12/18 09:00 08/29/18 08:59 08/19/18 08:35 Modesto Jacques MD Aug 20, 2018 07:55
--- NOTE | 2018-08-20 08:00 | NUR ---
NURSE NOTES: Patient is awake and alert,respirations are unlabored,patient sitting up in bed and eating breakfast.IV fluids infusing as ordered iv site in the right foot,will monitor.supra pubic catheter is in place and anchored as ordered,catheter is draining yellow urine.no complaints at this time.Call light within reach,bed alarm is on.
[2018-08-20 09:00] VITALS: BP 124/68
[2018-08-20] MEDS: Nephrovite tab (Rena-Vite) ORAL SCH (09:10)
[2018-08-20] MEDS: DULoxetine 30mg cap ORAL SCH (09:10)
[2018-08-20] MEDS: Heparin 5000 units/ml inj SUBQ SCH ×2 (09:13→21:48)
--- NOTE | 2018-08-20 09:26 | Urology Progress Note ---
Assessment/Plan Assessment/Plan 1. Urinary retention. 2. Neurogenic bladder. 3. History of chronic suprapubic tube. 4. BPH history. 5. History of end-stage renal disease. 6. Hematuria. 7. Pyuria. 8. Proteinuria. 9. Renal cysts. monitor clinically keep sp tube, last exchanged 2/5 hand irrigated and do PRN cath secured to pt's leg s/p abx recheck urine cx at some point HD if pt allows d/w nursing staff Subjective Allergies: Coded Allergies: CEFEPIME (Verified Allergy, Intermediate, Rash, 03/01/18) Tolerates Carbapenem Subjective all noted, new sp tube draining well, occasional leakage Objective Last 24 Hour Vital Signs Date Time Temp Pulse Resp B/P (MAP) Pulse Ox O2 Delivery O2 Flow Rate FiO2 08/20/18 04:00 98.4 76 20 108/52 98 Room Air 08/20/18 00:00 98.0 79 20 110/55 98 Room Air 08/19/18 21:00 Room Air 08/19/18 20:00 97.8 79 18 108/57 98 Room Air 08/19/18 16:00 97.8 70 18 99/53 98 Room Air 08/19/18 12:00 97.2 77 20 118/69 98 Room Air 08/19/18 09:34 84 20 Room Air 21 Intake and Output 08/19/18 08/20/18 19:00 07:00 Intake Total 1515 ml 150 ml Output Total 550 ml 1400 ml Balance 965 ml -1250 ml Intake Oral 790 ml IV Total 725 ml 150 ml Output Urine Total 550 ml 1400 ml Microbiology Date/Time Source Procedure Growth Status 07/29/18 05:29 Blood Blood Culture - Final NO GROWTH AFTER 5 DAYS Complete 07/29/18 00:30 Nasal Nares MRSA Culture - Final Staphylococcus Aureus - Mrsa Complete 07/29/18 05:15 Urine,Clean Catch Urine Culture - Final Gram Positive Cocci Complete 07/29/18 00:30 Rectum VRE Culture - Final Enterococcus Faecalis - Vre Enterococcus Faecium - Vre Complete Current Medications Medications (Trade) Dose Ordered Sig/Dunia Route PRN Reason Start Time Stop Time Status Last Admin Dose Admin Clindamycin HCl/ Dextrose 50 ml @ 100 mls/hr Q8HR IV 08/18/18 14:00 08/25/18 13:59 08/20/18 05:13 Dextrose (Dextrose 50%) 25 ml Q30M PRN IV Hypoglycemia 08/11/18 14:30 09/10/18 14:29 08/16/18 17:03 Dextrose (Dextrose 50%) 50 ml Q30M PRN IV Hypoglycemia 08/11/18 14:30 09/10/18 14:29 08/18/18 21:17 Duloxetine HCl (Cymbalta) 60 mg DAILY ORAL 08/18/18 09:00 09/17/18 08:59 08/20/18 09:10 Epoetin Jose (Epoetin Jose-EPBX(NON ESRD)) 10,000 unit WED-WED-WED SUBQ 08/12/18 21:00 09/02/18 20:59 08/19/18 20:58 Heparin Sodium (Porcine) (Heparin 5000 units/ml) 5,000 units EVERY 12 HOURS SUBQ 08/11/18 21:00 08/28/18 08:59 08/20/18 09:13 Insulin Aspart (NovoLOG) BEFORE MEALS AND HS SUBQ 08/11/18 16:30 09/10/18 11:29 08/19/18 21:11 Insulin Aspart (NovoLOG) 4 units NOVOTIAC SUBQ 08/18/18 11:50 09/10/18 07:59 08/20/18 05:53 Insulin Detemir (Levemir) 8 units BID SUBQ 08/20/18 09:00 09/10/18 08:59 Pantoprazole (Protonix) 40 mg BIAC ORAL 08/11/18 16:30 09/10/18 16:29 08/20/18 05:55 Quetiapine Fumarate (SEROquel) 25 mg Q12HR ORAL 08/11/18 21:00 09/08/18 12:14 08/20/18 09:11 Quetiapine Fumarate (SEROquel) 25 mg Q6H PRN ORAL For Anxiety 08/11/18 14:30 08/31/18 14:29 Sevelamer Carbonate (Renvela) 800 mg THREE TIMES A DAY ORAL 08/13/18 09:00 09/12/18 08:59 08/20/18 09:11 Sodium Chloride 1,000 ml @ 75 mls/hr [id number] IV 08/11/18 14:30 09/09/18 14:29 08/19/18 14:27 Vitamin B Complex/ Vit C/Folic Acid (Nephrovite) 1 tab DAILY ORAL 08/12/18 09:00 08/29/18 08:59 08/20/18 09:10 Height (Feet): 6 Height (Inches): 0.00 Weight (Pounds): 148 Objective exam stable Ye Rios MD Aug 20, 2018 09:26
[2018-08-20] MEDS: Levemir Flexpen SUBQ SCH ×2 (10:03→18:18)
[2018-08-20 12:00] VITALS: BP 116/60
--- NOTE | 2018-08-20 12:08 | Nephrology Progress Note ---
Assessment/Plan Problem List: (1) Acute on chronic renal failure (2) Bladder outlet obstruction (3) Anemia in chronic kidney disease (4) BPH (benign prostatic hypertrophy) (5) DKA (diabetic ketoacidoses) (6) Encephalopathy acute Assessment High Glucose now improved ESRD , in need of dialysis , refuses- presents with high K Encephalopathy , Metabolic Acidosis , Uremic and Diabetic Sever Anemia: Mixed etiology HTn, but presents with low BP Supra Pubic Cath, h/o UTI, BPH Psych disease CAD, elevated Troponin I s/p DKAs Plan no labs today Kayexelate for high K as needed Transfuse as needed Sugar control will do poorly in view of no dialysis plans DNR per orders DOES NOT AGREE TO DIALYSIS TREATMENT DC planning in process Subjective ROS Limited/Unobtainable: No Constitutional: Reports: malaise, weakness Objective Objective Last 24 Hour Vital Signs Date Time Temp Pulse Resp B/P (MAP) Pulse Ox O2 Delivery O2 Flow Rate FiO2 08/20/18 09:00 Room Air 08/20/18 09:00 97.9 84 17 124/68 99 Room Air 08/20/18 04:00 98.4 76 20 108/52 98 Room Air 08/20/18 00:00 98.0 79 20 110/55 98 Room Air 08/19/18 21:00 Room Air 08/19/18 20:00 97.8 79 18 108/57 98 Room Air 08/19/18 16:00 97.8 70 18 99/53 98 Room Air Intake and Output 08/19/18 08/20/18 19:00 07:00 Intake Total 1515 ml 150 ml Output Total 550 ml 1400 ml Balance 965 ml -1250 ml Intake Oral 790 ml IV Total 725 ml 150 ml Output Urine Total 550 ml 1400 ml Height (Feet): 6 Height (Inches): 0.00 Weight (Pounds): 148 General Appearance: no apparent distress, lethargic Cardiovascular: normal rate Respiratory/Chest: decreased breath sounds Abdomen: distended Objective no change Luis Chambers MD Aug 20, 2018 12:08
--- NOTE | 2018-08-20 13:21 | Pulmonology Progress Note ---
Assessment/Plan Problems: (1) Encephalopathy acute (2) DKA (diabetic ketoacidoses) (3) Anemia in chronic kidney disease (4) CKD (chronic kidney disease), stage III (5) Major depressive disorder (6) Bladder outlet obstruction (7) Suprapubic catheter Assessment/Plan doing better again creatinine lower eating better no new complains Bs better controlled all reviewed check electrolytes continue DNR dvt prophylaxis Subjective ROS Limited/Unobtainable: No Constitutional: Reports: no symptoms HEENT: Repors: no symptoms Respiratory: Reports: no symptoms Allergies: Coded Allergies: CEFEPIME (Verified Allergy, Intermediate, Rash, 03/01/18) Tolerates Carbapenem Objective Last 24 Hour Vital Signs Date Time Temp Pulse Resp B/P (MAP) Pulse Ox O2 Delivery O2 Flow Rate FiO2 08/20/18 09:00 Room Air 08/20/18 09:00 97.9 84 17 124/68 99 Room Air 08/20/18 04:00 98.4 76 20 108/52 98 Room Air 08/20/18 00:00 98.0 79 20 110/55 98 Room Air 08/19/18 21:00 Room Air 08/19/18 20:00 97.8 79 18 108/57 98 Room Air 08/19/18 16:00 97.8 70 18 99/53 98 Room Air Intake and Output 08/19/18 08/20/18 19:00 07:00 Intake Total 1515 ml 150 ml Output Total 550 ml 1400 ml Balance 965 ml -1250 ml Intake Oral 790 ml IV Total 725 ml 150 ml Output Urine Total 550 ml 1400 ml Objective General Appearance: WD/WN HEENT: normocephalic, atraumatic, anicteric Respiratory/Chest: chest wall non-tender, lungs clear Breasts: no masses Cardiovascular: normal peripheral pulses, normal rate Abdomen: normal bowel sounds, soft, non tender Extremities: no cyanosis Skin: no rash Neurologic/Psychiatric: airplane cover maker II-XII grossly normal Lymphatic: no neck adenopathy Current Medications Medications (Trade) Dose Ordered Sig/Dunia Route PRN Reason Start Time Stop Time Status Last Admin Dose Admin Clindamycin HCl/ Dextrose 50 ml @ 100 mls/hr Q8HR IV 08/18/18 14:00 08/25/18 13:59 08/20/18 13:14 Dextrose (Dextrose 50%) 25 ml Q30M PRN IV Hypoglycemia 1/31/19 14:30 09/10/18 14:29 08/16/18 17:03 Dextrose (Dextrose 50%) 50 ml Q30M PRN IV Hypoglycemia 08/11/18 14:30 09/10/18 14:29 08/18/18 21:17 Duloxetine HCl (Cymbalta) 60 mg DAILY ORAL 08/18/18 09:00 09/17/18 08:59 08/20/18 09:10 Epoetin Jose (Epoetin Jose-EPBX(NON ESRD)) 10,000 unit WED-WED-WED SUBQ 08/12/18 21:00 09/02/18 20:59 08/19/18 20:58 Heparin Sodium (Porcine) (Heparin 5000 units/ml) 5,000 units EVERY 12 HOURS SUBQ 08/11/18 21:00 08/28/18 08:59 08/20/18 09:13 Insulin Aspart (NovoLOG) BEFORE MEALS AND HS SUBQ 08/11/18 16:30 09/10/18 11:29 08/20/18 12:10 Insulin Aspart (NovoLOG) 4 units NOVOTIAC SUBQ 08/18/18 11:50 09/10/18 07:59 08/20/18 12:05 Insulin Detemir (Levemir) 8 units BID SUBQ 08/20/18 09:00 09/10/18 08:59 08/20/18 10:03 Pantoprazole (Protonix) 40 mg BIAC ORAL 08/11/18 16:30 09/10/18 16:29 08/20/18 05:55 Quetiapine Fumarate (SEROquel) 25 mg Q12HR ORAL 08/11/18 21:00 09/08/18 12:14 08/20/18 09:11 Quetiapine Fumarate (SEROquel) 25 mg Q6H PRN ORAL For Anxiety 08/11/18 14:30 08/31/18 14:29 Sevelamer Carbonate (Renvela) 800 mg THREE TIMES A DAY ORAL 08/13/18 09:00 09/12/18 08:59 08/20/18 13:12 Sodium Chloride 1,000 ml @ 75 mls/hr [id number] IV 08/11/18 14:30 3/1/19 14:29 08/20/18 12:15 Vitamin B Complex/ Vit C/Folic Acid (Nephrovite) 1 tab DAILY ORAL 08/12/18 09:00 08/29/18 08:59 08/20/18 09:10 Esdras Delgado MD Aug 20, 2018 13:21
--- NOTE | 2018-08-20 14:54 | NUR ---
CASE MANAGEMENT: REVIEW SI: ENCEPHALOPATHY ACUTE . DKA T 97.9 HR 84 RR 20 BP 99/53 SAT 98% ROOM AIR IS: CLINDAMYCIN IV Q8HR SEVELAMER PO TID EPOETIN SQ MWF NEPHROVITE PO QD HEPARIN SQ Q12HR NS IVF @75ML/HR MED/SURG STATUS DCP: PATIENT IS FROM [facility]
[2018-08-20 16:00] VITALS: BP 121/71
--- NOTE | 2018-08-20 19:00 | NUR ---
NURSE NOTES: Patient resting,no complaints at this time.Call light within reach,bed alarm is on.
--- NOTE | 2018-08-20 19:25 | NUR ---
HAND-OFF: Report given to Huber RIVERA.
--- NOTE | 2018-08-20 19:48 | NUR ---
NURSE NOTES: Received patient awake in bed, able to verbalize needs, no acute s/s of distress. IV site asymptomatic, dressing dry and intact, IVF running at 75ml/hr. suprapubicn Bed on lowest position, bed alarm on, 3 side rails up, call light and belongings within reach. Will monitor blood glucose closely.
[2018-08-20 20:00] VITALS: BP 122/71
--- NOTE | 2018-08-20 22:33 | General Progress Note ---
Assessment/Plan Problem List: (1) encephalopathy due to metabolic do (2) Major depressive disorder ICD Codes: F32.9 - Major depressive disorder, single episode, unspecified SNOMED: 155152047 Assessment/Plan increase Cymbalta 60mg qam seroquel 25mg q6hr prn agitation seroquel 25mg po bid provided ro/st Subjective Neurologic/Psychiatric: Reports: anxiety, depressed, emotional problems Allergies: Coded Allergies: CEFEPIME (Verified Allergy, Intermediate, Rash, 03/01/18) Tolerates Carbapenem Objective Last 24 Hour Vital Signs Date Time Temp Pulse Resp B/P (MAP) Pulse Ox O2 Delivery O2 Flow Rate FiO2 08/20/18 20:00 98.2 81 19 122/71 99 Room Air 08/20/18 16:00 98.4 81 18 121/71 98 Room Air 08/20/18 12:00 97.9 81 18 116/60 97 Room Air 08/20/18 09:00 Room Air 08/20/18 09:00 97.9 84 17 124/68 99 Room Air 08/20/18 04:00 98.4 76 20 108/52 98 Room Air 08/20/18 00:00 98.0 79 20 110/55 98 Room Air Intake and Output 08/19/18 08/20/18 19:00 07:00 Intake Total 1515 ml 150 ml Output Total 550 ml 1400 ml Balance 965 ml -1250 ml Intake Oral 790 ml IV Total 725 ml 150 ml Output Urine Total 550 ml 1400 ml Height (Feet): 6 Height (Inches): 0.00 Weight (Pounds): 148 General Appearance: no apparent distress, alert Neurologic: oriented x 3, responsive, depressed affect Fatmata Lu MD Aug 20, 2018 22:33
--- NOTE | 2018-08-20 23:46 | Internal Med Progress Note ---
Subjective Physician Name Christopher Rosado Attending Physician Christopher Rosado MD Current Medications Medications (Trade) Dose Ordered Sig/Dunia Route PRN Reason Start Time Stop Time Status Last Admin Dose Admin Clindamycin HCl/ Dextrose 50 ml @ 100 mls/hr Q8HR IV 08/18/18 14:00 08/25/18 13:59 08/20/18 21:56 Dextrose (Dextrose 50%) 25 ml Q30M PRN IV Hypoglycemia 08/11/18 14:30 09/10/18 14:29 08/16/18 17:03 Dextrose (Dextrose 50%) 50 ml Q30M PRN IV Hypoglycemia 08/11/18 14:30 09/10/18 14:29 08/18/18 21:17 Duloxetine HCl (Cymbalta) 60 mg DAILY ORAL 08/18/18 09:00 09/17/18 08:59 08/20/18 09:10 Epoetin Jose (Epoetin Jose-EPBX(NON ESRD)) 10,000 unit WED-WED-WED SUBQ 08/12/18 21:00 09/02/18 20:59 08/19/18 20:58 Heparin Sodium (Porcine) (Heparin 5000 units/ml) 5,000 units EVERY 12 HOURS SUBQ 08/11/18 21:00 08/28/18 08:59 08/20/18 21:48 Insulin Aspart (NovoLOG) BEFORE MEALS AND HS SUBQ 08/11/18 16:30 09/10/18 11:29 08/20/18 21:47 Insulin Aspart (NovoLOG) 4 units NOVOTIAC SUBQ 08/18/18 11:50 09/10/18 07:59 08/20/18 12:05 Insulin Detemir (Levemir) 8 units BID SUBQ 08/20/18 09:00 09/10/18 08:59 08/20/18 18:18 Pantoprazole (Protonix) 40 mg BIAC ORAL 08/11/18 16:30 09/10/18 16:29 08/20/18 17:52 Quetiapine Fumarate (SEROquel) 25 mg Q12HR ORAL 08/11/18 21:00 09/08/18 12:14 08/20/18 21:47 Quetiapine Fumarate (SEROquel) 25 mg Q6H PRN ORAL For Anxiety 08/11/18 14:30 08/31/18 14:29 Sevelamer Carbonate (Renvela) 800 mg THREE TIMES A DAY ORAL 08/13/18 09:00 09/12/18 08:59 08/20/18 17:55 Sodium Chloride 1,000 ml @ 75 mls/hr [id number] IV 08/11/18 14:30 09/09/18 14:29 08/20/18 12:15 Vitamin B Complex/ Vit C/Folic Acid (Nephrovite) 1 tab DAILY ORAL 08/12/18 09:00 08/29/18 08:59 08/20/18 09:10 Allergies: Coded Allergies: CEFEPIME (Verified Allergy, Intermediate, Rash, 03/01/18) Tolerates Carbapenem Subjective awake, alert, responsive, NAD, feeling good no complaint. Objective Last Vital Signs Date Time Temp Pulse Resp B/P (MAP) Pulse Ox O2 Delivery O2 Flow Rate FiO2 08/20/18 20:00 98.2 81 19 122/71 99 Room Air 08/19/18 09:34 21 Intake and Output 08/19/18 08/20/18 19:00 07:00 Intake Total 1515 ml 150 ml Output Total 550 ml 1400 ml Balance 965 ml -1250 ml Intake Oral 790 ml IV Total 725 ml 150 ml Output Urine Total 550 ml 1400 ml Objective GENERAL: Awake, alert, responsive, no acute distress. HEAD AND NECK: Pupils are equal and reactive to light. Extraocular movements are intact in the right eye. Left eye blindness, Neck was supple. No JVD. LUNGS: fair air entry. No wheezing or rales. HEART: S1 and S2. Distant heart sounds. No Murmur ABDOMEN: Soft, nontender, and nontender. Suprapubic catheter was noted. EXTREMITIES: No cyanosis or clubbing. Bilateral lower extremities without any edema. NEUROLOGIC: Cranial nerves II through XII grossly intact. Motor is 5/5 in all extremities. Gait was not assessed due to the patient's status. Assessment/Plan Assessment/Plan 1. DKA. 2. Hypertension. 3. Dyslipidemia. 4. Diabetes type 1 with prior history of diabetic ketoacidosis. 5. Diabetic retinopathy of the left eye blindness. 6. End-stage renal disease secondary to diabetic nephrosclerosis. 7. Coronary artery disease with prior history of myocardial infarction. 8. 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 9. 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 10. Secondary hyperparathyroidism with vitamin D deficiency. 11. Anemia of chronic kidney disease. 12. Metabolic acidosis. 13. Depression with prior suicide attempt. 14. Acute encephalopathy due to toxic metabolic encephalopathy due to DKA. 15. Hyperkalemia PLAN: 1. Med/surg 2. Code status is DNR/DNI as per POLST in the chart. 3. Resume correction medications. 4. Follow up with Labs and culture. 5. Broad spectrum antibiotic with Meropenem. 6. DVT prophylaxis, heparin subcutaneous. 7. We will follow up with Dr. Delgado with critical care , Dr. Chambers from Nephrology and Dr. Rich Wick from Infectious Disease. 8. We will follow up with the cultures and laboratory in the morning. 9. Better control with Levemir and Insulin sliding scale per endocrinology 10. Discharge planning: SNF when bed available. 11. Abx: Clindamycin IV Christopher Rosado MD Aug 20, 2018 23:46
[2018-08-21] VITALS: BP 141/73
[2018-08-21 04:00] VITALS: BP 115/58
[2018-08-21] MEDS: NovoLOG Insulin Flexpen SUBQ SCH ×7 (06:00→21:15)
--- NOTE | 2018-08-21 07:51 | NUR ---
HAND-OFF: Report given to NICOLE Dhillon.
[2018-08-21 08:00] VITALS: BP 141/73
--- NOTE | 2018-08-21 08:00 | NUR ---
NURSE NOTES: Covering Dr dylon Raymundo called in regards to orders from the [facility]. Verbal message left . Call back number left. Pt is currently sleeping. Addendum: 08/21/18 at 0821 by Jacquie Serrano RN error in entry wrong pt
--- NOTE | 2018-08-21 08:11 | General Progress Note ---
Assessment/Plan Problem List: (1) DKA (diabetic ketoacidoses) ICD Codes: E13.10 - DKA (diabetic ketoacidoses) SNOMED: 10283993 Qualifiers: Qualified Codes: E10.10 - Type 1 diabetes mellitus with ketoacidosis without coma (2) CKD (chronic kidney disease), stage III ICD Codes: N18.3 - CKD (chronic kidney disease), stage III SNOMED: 933929525 (3) encephalopathy due to metabolic do (4) Pulmonary HTN ICD Codes: I27.0 - Pulmonary HTN SNOMED: 48965476 Assessment/Plan continue Levemir 8 units bid - do not hold without notifying me continue Novolog 4 units ac tid continue NISS ac / hs Subjective ROS Limited/Unobtainable: Yes Allergies: Coded Allergies: CEFEPIME (Verified Allergy, Intermediate, Rash, 03/01/18) Tolerates Carbapenem Subjective events noted glucose values in much better control without hypoglycemia Item Value Date Time Bedside Blood Glucose 134 mg/dl H 08/21/18 0651 Bedside Blood Glucose 138 mg/dl H 08/20/18 2147 Bedside Blood Glucose 101 mg/dl 08/20/18 1818 Bedside Blood Glucose 195 mg/dl H 08/20/18 1210 Bedside Blood Glucose 174 mg/dl H 08/20/18 1006 Objective Last 24 Hour Vital Signs Date Time Temp Pulse Resp B/P (MAP) Pulse Ox O2 Delivery O2 Flow Rate FiO2 08/21/18 04:00 98.4 77 19 115/58 98 Room Air 08/21/18 00:00 98.2 79 19 141/73 100 Room Air 08/20/18 21:00 Room Air 08/20/18 20:00 98.2 81 19 122/71 99 Room Air 08/20/18 16:00 98.4 81 18 121/71 98 Room Air 08/20/18 12:00 97.9 81 18 116/60 97 Room Air 08/20/18 09:00 Room Air 08/20/18 09:00 97.9 84 17 124/68 99 Room Air Intake and Output 08/20/18 08/21/18 18:59 06:59 Intake Total 2057.5 ml 740 ml Output Total 1000 ml 950 ml Balance 1057.5 ml -210 ml Intake Oral 120 ml 240 ml IV Total 937.5 ml 500 ml Other 1000 ml Output Urine Total 1000 ml 950 ml Height (Feet): 6 Height (Inches): 0.00 Weight (Pounds): 148 General Appearance: no apparent distress Neck: normal alignment Cardiovascular: regular rhythm Respiratory/Chest: normal breath sounds Abdomen: normal bowel sounds Objective Current Medications Medications (Trade) Dose Ordered Sig/Dunia Route PRN Reason Start Time Stop Time Status Last Admin Dose Admin Clindamycin HCl/ Dextrose 50 ml @ 100 mls/hr Q8HR IV 08/18/18 14:00 08/25/18 13:59 08/21/18 05:57 Dextrose (Dextrose 50%) 25 ml Q30M PRN IV Hypoglycemia 08/11/18 14:30 09/10/18 14:29 08/16/18 17:03 Dextrose (Dextrose 50%) 50 ml Q30M PRN IV Hypoglycemia 08/11/18 14:30 09/10/18 14:29 08/18/18 21:17 Duloxetine HCl (Cymbalta) 60 mg DAILY ORAL 08/18/18 09:00 09/17/18 08:59 08/20/18 09:10 Epoetin Jose (Epoetin Jose-EPBX(NON ESRD)) 10,000 unit MON-WED-WED SUBQ 08/12/18 21:00 09/02/18 20:59 08/19/18 20:58 Heparin Sodium (Porcine) (Heparin 5000 units/ml) 5,000 units EVERY 12 HOURS SUBQ 08/11/18 21:00 08/28/18 08:59 08/20/18 21:48 Insulin Aspart (NovoLOG) BEFORE MEALS AND HS SUBQ 08/11/18 16:30 09/10/18 11:29 08/21/18 06:00 Insulin Aspart (NovoLOG) 4 units NOVOTIAC SUBQ 08/18/18 11:50 09/10/18 07:59 08/21/18 06:01 Insulin Detemir (Levemir) 8 units BID SUBQ 08/20/18 09:00 09/10/18 08:59 08/20/18 18:18 Pantoprazole (Protonix) 40 mg BIAC ORAL 08/11/18 16:30 09/10/18 16:29 08/21/18 05:57 Quetiapine Fumarate (SEROquel) 25 mg Q12HR ORAL 08/11/18 21:00 09/08/18 12:14 08/20/18 21:47 Quetiapine Fumarate (SEROquel) 25 mg Q6H PRN ORAL For Anxiety 08/11/18 14:30 08/31/18 14:29 Sevelamer Carbonate (Renvela) 800 mg THREE TIMES A DAY ORAL 08/13/18 09:00 09/12/18 08:59 08/20/18 17:55 Sodium Chloride 1,000 ml @ 75 mls/hr [id number] IV 08/11/18 14:30 09/09/18 14:29 08/21/18 01:17 Vitamin B Complex/ Vit C/Folic Acid (Nephrovite) 1 tab DAILY ORAL 08/12/18 09:00 08/29/18 08:59 08/20/18 09:10 Modesto Jacques MD Aug 21, 2018 08:11
--- NOTE | 2018-08-21 08:21 | NUR ---
NURSE NOTES: Pt required encouragement to eat his breakfast. made aware of recent administrations of insulin. Call light is in reach. Current plan of care will be offered
--- NOTE | 2018-08-21 08:33 | Infectious Diseases Prog Note ---
Assessment/Plan Assessment/Plan Right wrist IV site infection Severe sepsis - Resolved -likely 2ry to UTI- SP, s/p rx -u.a wbc tntc, nit neg, luek +3; ucx <10k GPC -Bcx Neg -CXR: Suspected atelectasis or scarring right Afebrile Leukocytosis, SP DKA RIVKA, improving hx of recent sepsis 2ry to UTI and bacteremia 07/08/18 UCx - P.a. MDR and Providencia 07/08/18 BCx ESBL Proteus and K. pneumo Dm2 HLD MDD with suicidal attempts in the past w/ resultant chronic encephalopathy CAD/AR BPH anemia asthma colonic polyps ESRD s/p renal and pancreas tx ~10 yrs ago now CKD 4 ConS bacteremia/line infection urinary retention s/p suprapubic catheter 09/2017 recurrent hematuria multiple hospital admissions recurrent UTI DNR Plan: -Continue Bactrim DS BID #4/ for infected IV site -08/02 SP Meropenem d# 5 07/29 SP one dose Amikacin -07/22 SP Meropenem, #14 - f/u cx -Monitor CBC/CMP, temperatures Subjective Allergies: Coded Allergies: CEFEPIME (Verified Allergy, Intermediate, Rash, 03/01/18) Tolerates Carbapenem Subjective Afebrile right wrist erythema improving Objective Vital Signs Last 24 Hour Vital Signs Date Time Temp Pulse Resp B/P (MAP) Pulse Ox O2 Delivery O2 Flow Rate FiO2 08/21/18 04:00 98.4 77 19 115/58 98 Room Air 08/21/18 00:00 98.2 79 19 141/73 100 Room Air 08/20/18 21:00 Room Air 08/20/18 20:00 98.2 81 19 122/71 99 Room Air 08/20/18 16:00 98.4 81 18 121/71 98 Room Air 08/20/18 12:00 97.9 81 18 116/60 97 Room Air 08/20/18 09:00 Room Air 08/20/18 09:00 97.9 84 17 124/68 99 Room Air Height (Feet): 6 Height (Inches): 0.00 Weight (Pounds): 148 Objective GEN: NAD HEENT: NCAT, MMM, EOMI Abdomen: soft, non-tender, ND Extremities: no C/C/E, Erythema at former infiltrated IV site no drainage Current Medications Medications (Trade) Dose Ordered Sig/Dunia Route PRN Reason Start Time Stop Time Status Last Admin Dose Admin Clindamycin HCl/ Dextrose 50 ml @ 100 mls/hr Q8HR IV 08/18/18 14:00 08/25/18 13:59 08/21/18 05:57 Dextrose (Dextrose 50%) 25 ml Q30M PRN IV Hypoglycemia 08/11/18 14:30 09/10/18 14:29 08/16/18 17:03 Dextrose (Dextrose 50%) 50 ml Q30M PRN IV Hypoglycemia 08/11/18 14:30 09/10/18 14:29 08/18/18 21:17 Duloxetine HCl (Cymbalta) 60 mg DAILY ORAL 08/18/18 09:00 09/17/18 08:59 08/20/18 09:10 Epoetin Jose (Epoetin Jose-EPBX(NON ESRD)) 10,000 unit WED-WED-WED SUBQ 08/12/18 21:00 09/02/18 20:59 08/19/18 20:58 Heparin Sodium (Porcine) (Heparin 5000 units/ml) 5,000 units EVERY 12 HOURS SUBQ 08/11/18 21:00 08/28/18 08:59 08/20/18 21:48 Insulin Aspart (NovoLOG) BEFORE MEALS AND HS SUBQ 08/11/18 16:30 09/10/18 11:29 08/21/18 06:00 Insulin Aspart (NovoLOG) 4 units NOVOTIAC SUBQ 08/18/18 11:50 09/10/18 07:59 08/21/18 06:01 Insulin Detemir (Levemir) 8 units BID SUBQ 08/21/18 09:00 09/10/18 08:59 Pantoprazole (Protonix) 40 mg BIAC ORAL 08/11/18 16:30 09/10/18 16:29 08/21/18 05:57 Quetiapine Fumarate (SEROquel) 25 mg Q12HR ORAL 08/11/18 21:00 09/08/18 12:14 08/20/18 21:47 Quetiapine Fumarate (SEROquel) 25 mg Q6H PRN ORAL For Anxiety 08/11/18 14:30 08/31/18 14:29 Sevelamer Carbonate (Renvela) 800 mg THREE TIMES A DAY ORAL 08/13/18 09:00 09/12/18 08:59 08/20/18 17:55 Sodium Chloride 1,000 ml @ 75 mls/hr [id number] IV 08/11/18 14:30 09/09/18 14:29 08/21/18 01:17 Vitamin B Complex/ Vit C/Folic Acid (Nephrovite) 1 tab DAILY ORAL 08/12/18 09:00 08/29/18 08:59 08/20/18 09:10 William Caputo MD Aug 21, 2018 08:33
[2018-08-21] MEDS: Nephrovite tab (Rena-Vite) ORAL SCH (09:14)
[2018-08-21] MEDS: DULoxetine 30mg cap ORAL SCH (09:14)
[2018-08-21] MEDS: Heparin 5000 units/ml inj SUBQ SCH ×2 (09:15→21:14)
[2018-08-21] MEDS: Levemir Flexpen SUBQ SCH ×2 (10:56→18:09)
--- NOTE | 2018-08-21 11:05 | Urology Progress Note ---
Assessment/Plan Assessment/Plan 1. Urinary retention. 2. Neurogenic bladder. 3. History of chronic suprapubic tube. 4. BPH history. 5. History of end-stage renal disease. 6. Hematuria. 7. Pyuria. 8. Proteinuria. 9. Renal cysts. monitor clinically keep sp tube, last exchanged 2/5 hand irrigated and do PRN cath secured to pt's leg s/p abx recheck urine cx at some point HD if pt allows d/w nursing staff Subjective Allergies: Coded Allergies: CEFEPIME (Verified Allergy, Intermediate, Rash, 03/01/18) Tolerates Carbapenem Subjective all noted, new sp tube draining well, occasional leakage Objective Last 24 Hour Vital Signs Date Time Temp Pulse Resp B/P (MAP) Pulse Ox O2 Delivery O2 Flow Rate FiO2 08/21/18 09:00 Room Air 08/21/18 08:00 98.1 110 18 141/73 99 Room Air 08/21/18 04:00 98.4 77 19 115/58 98 Room Air 08/21/18 00:00 98.2 79 19 141/73 100 Room Air 08/20/18 21:00 Room Air 08/20/18 20:00 98.2 81 19 122/71 99 Room Air 08/20/18 16:00 98.4 81 18 121/71 98 Room Air 08/20/18 12:00 97.9 81 18 116/60 97 Room Air Intake and Output 08/20/18 08/21/18 18:59 06:59 Intake Total 2057.5 ml 740 ml Output Total 1000 ml 950 ml Balance 1057.5 ml -210 ml Intake Oral 120 ml 240 ml IV Total 937.5 ml 500 ml Other 1000 ml Output Urine Total 1000 ml 950 ml Microbiology Date/Time Source Procedure Growth Status 07/29/18 05:29 Blood Blood Culture - Final NO GROWTH AFTER 5 DAYS Complete 07/29/18 00:30 Nasal Nares MRSA Culture - Final Staphylococcus Aureus - Mrsa Complete 07/29/18 05:15 Urine,Clean Catch Urine Culture - Final Gram Positive Cocci Complete 07/29/18 00:30 Rectum VRE Culture - Final Enterococcus Faecalis - Vre Enterococcus Faecium - Vre Complete Current Medications Medications (Trade) Dose Ordered Sig/Dunia Route PRN Reason Start Time Stop Time Status Last Admin Dose Admin Clindamycin HCl/ Dextrose 50 ml @ 100 mls/hr Q8HR IV 2/7/19 14:00 08/25/18 13:59 08/21/18 05:57 Dextrose (Dextrose 50%) 25 ml Q30M PRN IV Hypoglycemia 08/11/18 14:30 09/10/18 14:29 08/16/18 17:03 Dextrose (Dextrose 50%) 50 ml Q30M PRN IV Hypoglycemia 08/11/18 14:30 09/10/18 14:29 08/18/18 21:17 Duloxetine HCl (Cymbalta) 60 mg DAILY ORAL 08/18/18 09:00 09/17/18 08:59 08/21/18 09:14 Epoetin Jose (Epoetin Jose-EPBX(NON ESRD)) 10,000 unit WED-WED-WED SUBQ 08/12/18 21:00 09/02/18 20:59 08/19/18 20:58 Heparin Sodium (Porcine) (Heparin 5000 units/ml) 5,000 units EVERY 12 HOURS SUBQ 08/11/18 21:00 08/28/18 08:59 08/21/18 09:15 Insulin Aspart (NovoLOG) BEFORE MEALS AND HS SUBQ 08/11/18 16:30 09/10/18 11:29 08/21/18 06:00 Insulin Aspart (NovoLOG) 4 units NOVOTIAC SUBQ 08/18/18 11:50 09/10/18 07:59 08/21/18 06:01 Insulin Detemir (Levemir) 8 units BID SUBQ 08/21/18 09:00 09/10/18 08:59 08/21/18 10:56 Pantoprazole (Protonix) 40 mg BIAC ORAL 08/11/18 16:30 09/10/18 16:29 08/21/18 05:57 Quetiapine Fumarate (SEROquel) 25 mg Q12HR ORAL 08/11/18 21:00 09/08/18 12:14 08/21/18 09:14 Quetiapine Fumarate (SEROquel) 25 mg Q6H PRN ORAL For Anxiety 08/11/18 14:30 08/31/18 14:29 Sevelamer Carbonate (Renvela) 800 mg THREE TIMES A DAY ORAL 08/13/18 09:00 09/12/18 08:59 08/21/18 09:14 Sodium Chloride 1,000 ml @ 75 mls/hr [id number] IV 08/11/18 14:30 09/09/18 14:29 08/21/18 01:17 Vitamin B Complex/ Vit C/Folic Acid (Nephrovite) 1 tab DAILY ORAL 08/12/18 09:00 08/29/18 08:59 08/21/18 09:14 Height (Feet): 6 Height (Inches): 0.00 Weight (Pounds): 148 Objective exam stable Ye Rios MD Aug 21, 2018 11:05
--- NOTE | 2018-08-21 12:00 | Nephrology Progress Note ---
Assessment/Plan Problem List: (1) Acute on chronic renal failure (2) Bladder outlet obstruction (3) Anemia in chronic kidney disease (4) BPH (benign prostatic hypertrophy) (5) DKA (diabetic ketoacidoses) (6) Encephalopathy acute Assessment High Glucose now improved ESRD , in need of dialysis , refuses- presents with high K Encephalopathy , Metabolic Acidosis , Uremic and Diabetic Sever Anemia: Mixed etiology HTn, but presents with low BP Supra Pubic Cath, h/o UTI, BPH Psych disease CAD, elevated Troponin I s/p DKAs Plan no labs today Kayexelate for high K as needed Transfuse as needed Sugar control will do poorly in view of no dialysis plans DNR per orders DOES NOT AGREE TO DIALYSIS TREATMENT DC planning in process Subjective ROS Limited/Unobtainable: No Objective Objective Last 24 Hour Vital Signs Date Time Temp Pulse Resp B/P (MAP) Pulse Ox O2 Delivery O2 Flow Rate FiO2 08/21/18 09:00 Room Air 08/21/18 08:00 98.1 110 18 141/73 99 Room Air 08/21/18 04:00 98.4 77 19 115/58 98 Room Air 08/21/18 00:00 98.2 79 19 141/73 100 Room Air 08/20/18 21:00 Room Air 08/20/18 20:00 98.2 81 19 122/71 99 Room Air 08/20/18 16:00 98.4 81 18 121/71 98 Room Air Intake and Output 08/20/18 08/21/18 19:00 07:00 Intake Total 2057.5 ml 665 ml Output Total 1000 ml 950 ml Balance 1057.5 ml -285 ml Intake Oral 120 ml 240 ml IV Total 937.5 ml 425 ml Other 1000 ml Output Urine Total 1000 ml 950 ml Height (Feet): 6 Height (Inches): 0.00 Weight (Pounds): 148 General Appearance: no apparent distress, lethargic Objective no change Luis Chambers MD Aug 21, 2018 12:00
--- NOTE | 2018-08-21 13:23 | Internal Med Progress Note ---
Subjective Physician Name Christopher Rosado Attending Physician Christopher Rosado MD Current Medications Medications (Trade) Dose Ordered Sig/Dunia Route PRN Reason Start Time Stop Time Status Last Admin Dose Admin Clindamycin HCl/ Dextrose 50 ml @ 100 mls/hr Q8HR IV 08/18/18 14:00 08/25/18 13:59 08/21/18 05:57 Dextrose (Dextrose 50%) 25 ml Q30M PRN IV Hypoglycemia 08/11/18 14:30 09/10/18 14:29 08/16/18 17:03 Dextrose (Dextrose 50%) 50 ml Q30M PRN IV Hypoglycemia 08/11/18 14:30 09/10/18 14:29 08/18/18 21:17 Duloxetine HCl (Cymbalta) 60 mg DAILY ORAL 08/18/18 09:00 09/17/18 08:59 08/21/18 09:14 Epoetin Ojse (Epoetin Jose-EPBX(NON ESRD)) 10,000 unit WED-WED-WED SUBQ 08/12/18 21:00 09/02/18 20:59 08/19/18 20:58 Heparin Sodium (Porcine) (Heparin 5000 units/ml) 5,000 units EVERY 12 HOURS SUBQ 08/11/18 21:00 08/28/18 08:59 08/21/18 09:15 Insulin Aspart (NovoLOG) BEFORE MEALS AND HS SUBQ 08/11/18 16:30 09/10/18 11:29 08/21/18 06:00 Insulin Aspart (NovoLOG) 4 units NOVOTIAC SUBQ 08/18/18 11:50 09/10/18 07:59 08/21/18 06:01 Insulin Detemir (Levemir) 8 units BID SUBQ 08/21/18 09:00 09/10/18 08:59 08/21/18 10:56 Pantoprazole (Protonix) 40 mg BIAC ORAL 08/11/18 16:30 09/10/18 16:29 08/21/18 05:57 Quetiapine Fumarate (SEROquel) 25 mg Q12HR ORAL 08/11/18 21:00 09/08/18 12:14 08/21/18 09:14 Quetiapine Fumarate (SEROquel) 25 mg Q6H PRN ORAL For Anxiety 08/11/18 14:30 08/31/18 14:29 Sevelamer Carbonate (Renvela) 800 mg THREE TIMES A DAY ORAL 08/13/18 09:00 09/12/18 08:59 08/21/18 09:14 Sodium Chloride 1,000 ml @ 75 mls/hr [id number] IV 08/11/18 14:30 09/09/18 14:29 08/21/18 01:17 Vitamin B Complex/ Vit C/Folic Acid (Nephrovite) 1 tab DAILY ORAL 08/12/18 09:00 08/29/18 08:59 08/21/18 09:14 Allergies: Coded Allergies: CEFEPIME (Verified Allergy, Intermediate, Rash, 03/01/18) Tolerates Carbapenem Subjective awake, alert, responsive, NAD, feeling good no complaint. Objective Last Vital Signs Date Time Temp Pulse Resp B/P (MAP) Pulse Ox O2 Delivery O2 Flow Rate FiO2 08/21/18 09:00 Room Air 08/21/18 08:00 98.1 110 18 141/73 99 08/19/18 09:34 21 Intake and Output 08/20/18 08/21/18 19:00 07:00 Intake Total 2057.5 ml 665 ml Output Total 1000 ml 950 ml Balance 1057.5 ml -285 ml Intake Oral 120 ml 240 ml IV Total 937.5 ml 425 ml Other 1000 ml Output Urine Total 1000 ml 950 ml Objective GENERAL: Awake, alert, responsive, no acute distress. HEAD AND NECK: Pupils are equal and reactive to light. Extraocular movements are intact in the right eye. Left eye blindness, Neck was supple. No JVD. LUNGS: fair air entry. No wheezing or rales. HEART: S1 and S2. Distant heart sounds. No Murmur ABDOMEN: Soft, nontender, and nontender. Suprapubic catheter was noted. EXTREMITIES: No cyanosis or clubbing. Bilateral lower extremities without any edema. NEUROLOGIC: Cranial nerves II through XII grossly intact. Motor is 5/5 in all extremities. Gait was not assessed due to the patient's status. Assessment/Plan Assessment/Plan 1. DKA. 2. Hypertension. 3. Dyslipidemia. 4. Diabetes type 1 with prior history of diabetic ketoacidosis. 5. Diabetic retinopathy of the left eye blindness. 6. End-stage renal disease secondary to diabetic nephrosclerosis. 7. Coronary artery disease with prior history of myocardial infarction. 8. 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 9. 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 10. Secondary hyperparathyroidism with vitamin D deficiency. 11. Anemia of chronic kidney disease. 12. Metabolic acidosis. 13. Depression with prior suicide attempt. 14. Acute encephalopathy due to toxic metabolic encephalopathy due to DKA. 15. Hyperkalemia PLAN: 1. Med/surg 2. Code status is DNR/DNI as per POLST in the chart. 3. Resume [facility] medications. 4. Follow up with Labs and culture. 5. Broad spectrum antibiotic with Meropenem. 6. DVT prophylaxis, heparin subcutaneous. 7. We will follow up with Dr. Delgado with critical care , Dr. Chambers from Nephrology and Dr. Rich Wick from Infectious Disease. 8. We will follow up with the cultures and laboratory in the morning. 9. Better control with Levemir and Insulin sliding scale per endocrinology 10. Discharge planning: SNF when bed available. 11. Abx: Clindamycin IV Christopher Rosado MD Aug 21, 2018 13:23
[2018-08-21 16:00] VITALS: BP 115/83
--- NOTE | 2018-08-21 19:45 | NUR ---
Received patient asleep in bed, arousable by name, no acute s/s of acute distress. Suprapubic catheter noted, draining, anchor in place. IV site asymptomatic, dressing dry and intact. Bed on lowest position, 2 side rails up, call light and belongings within reach. Will monitor blood glucose closely.
--- NOTE | 2018-08-21 20:21 | Pulmonology Progress Note ---
Assessment/Plan Problems: (1) Encephalopathy acute (2) DKA (diabetic ketoacidoses) (3) Anemia in chronic kidney disease (4) CKD (chronic kidney disease), stage III (5) Major depressive disorder (6) Bladder outlet obstruction (7) Suprapubic catheter Assessment/Plan doing better again creatinine lower eating better no new complains Bs better controlled all reviewed check electrolytes continue DNR dvt prophylaxis Subjective ROS Limited/Unobtainable: No Constitutional: Reports: no symptoms Allergies: Coded Allergies: CEFEPIME (Verified Allergy, Intermediate, Rash, 03/01/18) Tolerates Carbapenem Objective Last 24 Hour Vital Signs Date Time Temp Pulse Resp B/P (MAP) Pulse Ox O2 Delivery O2 Flow Rate FiO2 08/21/18 09:00 Room Air 08/21/18 08:00 98.1 110 18 141/73 99 Room Air 08/21/18 04:00 98.4 77 19 115/58 98 Room Air 08/21/18 00:00 98.2 79 19 141/73 100 Room Air 08/20/18 21:00 Room Air Intake and Output 08/20/18 08/21/18 19:00 07:00 Intake Total 2057.5 ml 665 ml Output Total 1000 ml 950 ml Balance 1057.5 ml -285 ml Intake Oral 120 ml 240 ml IV Total 937.5 ml 425 ml Other 1000 ml Output Urine Total 1000 ml 950 ml Objective General Appearance: WD/WN HEENT: normocephalic, atraumatic, anicteric Respiratory/Chest: chest wall non-tender, lungs clear Breasts: no masses Cardiovascular: normal peripheral pulses, normal rate Abdomen: normal bowel sounds, soft, non tender Extremities: no cyanosis Skin: no rash Neurologic/Psychiatric: vender II-XII grossly normal Lymphatic: no neck adenopathy Current Medications Medications (Trade) Dose Ordered Sig/Dunia Route PRN Reason Start Time Stop Time Status Last Admin Dose Admin Clindamycin HCl/ Dextrose 50 ml @ 100 mls/hr Q8HR IV 08/18/18 14:00 08/25/18 13:59 08/21/18 14:29 Dextrose (Dextrose 50%) 25 ml Q30M PRN IV Hypoglycemia 08/11/18 14:30 09/10/18 14:29 08/16/18 17:03 Dextrose (Dextrose 50%) 50 ml Q30M PRN IV Hypoglycemia 08/11/18 14:30 09/10/18 14:29 08/18/18 21:17 Duloxetine HCl (Cymbalta) 60 mg DAILY ORAL 08/18/18 09:00 09/17/18 08:59 08/21/18 09:14 Epoetin Jose (Epoetin Jose-EPBX(NON ESRD)) 10,000 unit WED-WED-WED SUBQ 08/12/18 21:00 09/02/18 20:59 08/19/18 20:58 Heparin Sodium (Porcine) (Heparin 5000 units/ml) 5,000 units EVERY 12 HOURS SUBQ 08/11/18 21:00 08/28/18 08:59 08/21/18 09:15 Insulin Aspart (NovoLOG) BEFORE MEALS AND HS SUBQ 08/11/18 16:30 09/10/18 11:29 08/21/18 18:10 Insulin Aspart (NovoLOG) 4 units NOVOTIAC SUBQ 08/18/18 11:50 09/10/18 07:59 08/21/18 18:10 Insulin Detemir (Levemir) 8 units BID SUBQ 08/21/18 09:00 09/10/18 08:59 08/21/18 18:09 Pantoprazole (Protonix) 40 mg BIAC ORAL 08/11/18 16:30 09/10/18 16:29 08/21/18 18:07 Quetiapine Fumarate (SEROquel) 25 mg Q12HR ORAL 08/11/18 21:00 09/08/18 12:14 08/21/18 09:14 Quetiapine Fumarate (SEROquel) 25 mg Q6H PRN ORAL For Anxiety 08/11/18 14:30 08/31/18 14:29 Sevelamer Carbonate (Renvela) 800 mg THREE TIMES A DAY ORAL 08/13/18 09:00 09/12/18 08:59 08/21/18 18:07 Sodium Chloride 1,000 ml @ 75 mls/hr [id number] IV 08/11/18 14:30 09/09/18 14:29 08/21/18 18:04 Vitamin B Complex/ Vit C/Folic Acid (Nephrovite) 1 tab DAILY ORAL 08/12/18 09:00 08/29/18 08:59 08/21/18 09:14 Esdras Delgado MD Aug 21, 2018 20:21
--- NOTE | 2018-08-21 21:47 | General Progress Note ---
Assessment/Plan Problem List: (1) encephalopathy due to metabolic do (2) Major depressive disorder ICD Codes: F32.9 - Major depressive disorder, single episode, unspecified SNOMED: 927407392 Assessment/Plan increase Cymbalta 60mg qam seroquel 25mg q6hr prn agitation seroquel 25mg po bid provided ro/st Subjective Neurologic/Psychiatric: Reports: anxiety, depressed, emotional problems Allergies: Coded Allergies: CEFEPIME (Verified Allergy, Intermediate, Rash, 03/01/18) Tolerates Carbapenem Objective Last 24 Hour Vital Signs Date Time Temp Pulse Resp B/P (MAP) Pulse Ox O2 Delivery O2 Flow Rate FiO2 08/21/18 16:00 98.6 126 17 115/83 96 Room Air 08/21/18 12:00 98.0 110 17 98 08/21/18 09:00 Room Air 08/21/18 08:00 98.1 110 18 141/73 99 Room Air 08/21/18 04:00 98.4 77 19 115/58 98 Room Air 08/21/18 00:00 98.2 79 19 141/73 100 Room Air Intake and Output 08/20/18 08/21/18 19:00 07:00 Intake Total 2057.5 ml 665 ml Output Total 1000 ml 950 ml Balance 1057.5 ml -285 ml Intake Oral 120 ml 240 ml IV Total 937.5 ml 425 ml Other 1000 ml Output Urine Total 1000 ml 950 ml Height (Feet): 6 Height (Inches): 0.00 Weight (Pounds): 148 Fatmata Lu MD Aug 21, 2018 21:47
--- NOTE | 2018-08-22 00:15 | NUR ---
NURSE NOTES: Patient refused 1999 and 0000 vital signs. Easily arousable, no s/s of acute distress. Addendum: 08/22/18 at 0453 by Huber Ibarra RN Patient refused 0400 vitals as well. Becoming increasingliy agitated. No s/s of acute distress, awake in bed.
[2018-08-22 05:16] VITALS: BP 138/80
[2018-08-22] MEDS: NovoLOG Insulin Flexpen SUBQ SCH ×7 (05:20→21:00)
[2018-08-22 06:43] LABS: HEMATOCRIT 37.2 % (42.0-52.0); HEMOGLOBIN 11.4 G/DL (14.2-18.0); MEAN CORPUSCULAR VOLUME 104 FL (80-99); PLATELET COUNT 353 K/UL (150-450); RED BLOOD COUNT 3.59 M/UL (4.70-6.10); RED CELL DISTRIBUTION WIDTH 19.4 % (11.6-14.8); WHITE BLOOD COUNT 10.1 K/UL (4.8-10.8)
--- NOTE | 2018-08-22 07:05 | General Progress Note ---
Assessment/Plan Problem List: (1) DKA (diabetic ketoacidoses) ICD Codes: E13.10 - DKA (diabetic ketoacidoses) SNOMED: 97366358 Qualifiers: Qualified Codes: E10.10 - Type 1 diabetes mellitus with ketoacidosis without coma (2) CKD (chronic kidney disease), stage III ICD Codes: N18.3 - CKD (chronic kidney disease), stage III SNOMED: 369913751 (3) encephalopathy due to metabolic do (4) Pulmonary HTN ICD Codes: I27.0 - Pulmonary HTN SNOMED: 27318880 Assessment/Plan increase Levemir to 9 units bid - do not hold without notifying me continue Novolog 4 units ac tid continue NISS ac / hs Subjective Allergies: Coded Allergies: CEFEPIME (Verified Allergy, Intermediate, Rash, 03/01/18) Tolerates Carbapenem All Systems: reviewed and negative except above Subjective events noted fasting glucose elevated Item Value Date Time Bedside Blood Glucose 271 mg/dl H 08/22/18 0522 Bedside Blood Glucose 144 mg/dl H 08/21/18 2115 Bedside Blood Glucose 203 mg/dl H 08/21/18 1810 Bedside Blood Glucose 119 mg/dl 08/21/18 1428 Bedside Blood Glucose 119 mg/dl 08/21/18 1056 Bedside Blood Glucose 134 mg/dl H 08/21/18 0651 Objective Last 24 Hour Vital Signs Date Time Temp Pulse Resp B/P (MAP) Pulse Ox O2 Delivery O2 Flow Rate FiO2 08/22/18 05:16 99.1 121 21 138/80 97 Room Air 08/21/18 21:00 Room Air 08/21/18 16:00 98.6 126 17 115/83 96 Room Air 08/21/18 12:00 98.0 110 17 98 08/21/18 09:00 Room Air 08/21/18 08:00 98.1 110 18 141/73 99 Room Air Intake and Output 08/21/18 08/22/18 18:59 06:59 Intake Total 1800 ml 750 ml Output Total 1100 ml 400 ml Balance 700 ml 350 ml Intake Oral 100 ml IV Total 800 ml 650 ml Other 1000 ml Output Urine Total 1100 ml 400 ml Laboratory Tests 08/22/18 05:20: White Blood Count 10.1, Red Blood Count 3.59L, Hemoglobin 11.4L, Hematocrit 37.2L, Mean Corpuscular Volume 104H, Mean Corpuscular Hemoglobin 31.8H, Mean Corpuscular Hemoglobin Concent 30.6L, Red Cell Distribution Width 19.4H, Platelet Count 353, Mean Platelet Volume 5.0L, Neutrophils (%) (Auto) , Lymphocytes (%) (Auto) , Monocytes (%) (Auto) , Eosinophils (%) (Auto) , Basophils (%) (Auto) , Neutrophils % (Manual) [Pending], Lymphocytes % (Manual) [Pending], Platelet Estimate [Pending], Platelet Morphology [Pending], Sodium Level [Pending], Potassium Level [Pending], Chloride Level [Pending], Carbon Dioxide Level [Pending], Blood Urea Nitrogen [Pending], Creatinine [Pending], Estimat Glomerular Filtration Rate [Pending], Glucose Level [Pending], Calcium Level [Pending], Phosphorus Level [Pending], Magnesium Level [Pending], Total Bilirubin [Pending], Aspartate Amino Transf (AST/SGOT) [Pending], Alanine Aminotransferase (ALT/SGPT) [Pending], Alkaline Phosphatase [Pending], C- Reactive Protein, Quantitative [Pending], Pro-B-Type Natriuretic Peptide [ Pending], Total Protein [Pending], Albumin [Pending], Globulin [Pending] Height (Feet): 6 Height (Inches): 0.00 Weight (Pounds): 148 General Appearance: no apparent distress Neck: normal alignment Cardiovascular: normal rate Respiratory/Chest: normal breath sounds Abdomen: normal bowel sounds Pelvis: normal external exam Objective Current Medications Medications (Trade) Dose Ordered Sig/Dunia Route PRN Reason Start Time Stop Time Status Last Admin Dose Admin Clindamycin HCl/ Dextrose 50 ml @ 100 mls/hr Q8HR IV 08/18/18 14:00 08/25/18 13:59 08/22/18 05:01 Dextrose (Dextrose 50%) 25 ml Q30M PRN IV Hypoglycemia 08/11/18 14:30 09/10/18 14:29 08/16/18 17:03 Dextrose (Dextrose 50%) 50 ml Q30M PRN IV Hypoglycemia 08/11/18 14:30 09/10/18 14:29 08/18/18 21:17 Duloxetine HCl (Cymbalta) 60 mg DAILY ORAL 08/18/18 09:00 09/17/18 08:59 08/21/18 09:14 Epoetin Jose (Epoetin Jose-EPBX(NON ESRD)) 10,000 unit WED-WED-WED SUBQ 08/12/18 21:00 09/02/18 20:59 08/19/18 20:58 Heparin Sodium (Porcine) (Heparin 5000 units/ml) 5,000 units EVERY 12 HOURS SUBQ 08/11/18 21:00 08/28/18 08:59 08/21/18 21:14 Insulin Aspart (NovoLOG) BEFORE MEALS AND HS SUBQ 08/11/18 16:30 09/10/18 11:29 08/22/18 05:20 Insulin Aspart (NovoLOG) 4 units NOVOTIAC SUBQ 08/18/18 11:50 09/10/18 07:59 08/22/18 05:22 Insulin Detemir (Levemir) 8 units BID SUBQ 08/21/18 09:00 09/10/18 08:59 08/21/18 18:09 Pantoprazole (Protonix) 40 mg BIAC ORAL 08/11/18 16:30 09/10/18 16:29 08/22/18 05:39 Quetiapine Fumarate (SEROquel) 25 mg Q12HR ORAL 08/11/18 21:00 09/08/18 12:14 08/21/18 21:08 Quetiapine Fumarate (SEROquel) 25 mg Q6H PRN ORAL For Anxiety 08/11/18 14:30 08/31/18 14:29 Sevelamer Carbonate (Renvela) 800 mg THREE TIMES A DAY ORAL 08/13/18 09:00 09/12/18 08:59 08/21/18 18:07 Sodium Chloride 1,000 ml @ 75 mls/hr [id number] IV 08/11/18 14:30 09/09/18 14:29 08/22/18 04:37 Vitamin B Complex/ Vit C/Folic Acid (Nephrovite) 1 tab DAILY ORAL 08/12/18 09:00 08/29/18 08:59 08/21/18 09:14 Modesto Jacques MD Aug 22, 2018 07:05
--- NOTE | 2018-08-22 07:25 | NUR ---
HAND-OFF: Report given to NICOLE Dhillon. Encouraged patient to eat his breakfast right away as Novolog was given prior to breakfast. AM RN aware of latest vital signs.
--- NOTE | 2018-08-22 07:41 | Urology Progress Note ---
Assessment/Plan Assessment/Plan 1. Urinary retention. 2. Neurogenic bladder. 3. History of chronic suprapubic tube. 4. BPH history. 5. History of end-stage renal disease. 6. Hematuria. 7. Pyuria. 8. Proteinuria. 9. Renal cysts. monitor clinically keep sp tube, last exchanged 2 hand irrigate PRN cath secured to pt's leg s/p abx recheck urine cx at some point HD if pt allows d/w nursing staff Subjective Allergies: Coded Allergies: CEFEPIME (Verified Allergy, Intermediate, Rash, 03/01/18) Tolerates Carbapenem Subjective all noted, new sp tube draining well, occasional leakage Objective Last 24 Hour Vital Signs Date Time Temp Pulse Resp B/P (MAP) Pulse Ox O2 Delivery O2 Flow Rate FiO2 08/22/18 05:16 99.1 121 21 138/80 97 Room Air 08/21/18 21:00 Room Air 08/21/18 16:00 98.6 126 17 115/83 96 Room Air 08/21/18 12:00 98.0 110 17 98 08/21/18 09:00 Room Air 08/21/18 08:00 98.1 110 18 141/73 99 Room Air Intake and Output 08/21/18 08/22/18 18:59 06:59 Intake Total 1800 ml 750 ml Output Total 1100 ml 400 ml Balance 700 ml 350 ml Intake Oral 100 ml IV Total 800 ml 650 ml Other 1000 ml Output Urine Total 1100 ml 400 ml Microbiology Date/Time Source Procedure Growth Status 07/29/18 05:29 Blood Blood Culture - Final NO GROWTH AFTER 5 DAYS Complete 07/29/18 00:30 Nasal Nares MRSA Culture - Final Staphylococcus Aureus - Mrsa Complete 07/29/18 05:15 Urine,Clean Catch Urine Culture - Final Gram Positive Cocci Complete 07/29/18 00:30 Rectum VRE Culture - Final Enterococcus Faecalis - Vre Enterococcus Faecium - Vre Complete Current Medications Medications (Trade) Dose Ordered Sig/Dunia Route PRN Reason Start Time Stop Time Status Last Admin Dose Admin Clindamycin HCl/ Dextrose 50 ml @ 100 mls/hr Q8HR IV 08/18/18 14:00 08/25/18 13:59 08/22/18 05:01 Dextrose (Dextrose 50%) 25 ml Q30M PRN IV Hypoglycemia 08/11/18 14:30 09/10/18 14:29 08/16/18 17:03 Dextrose (Dextrose 50%) 50 ml Q30M PRN IV Hypoglycemia 08/11/18 14:30 09/10/18 14:29 08/18/18 21:17 Duloxetine HCl (Cymbalta) 60 mg DAILY ORAL 08/18/18 09:00 09/17/18 08:59 08/21/18 09:14 Epoetin Jose (Epoetin Jose-EPBX(NON ESRD)) 10,000 unit WED-WED-WED SUBQ 08/12/18 21:00 09/02/18 20:59 08/19/18 20:58 Heparin Sodium (Porcine) (Heparin 5000 units/ml) 5,000 units EVERY 12 HOURS SUBQ 08/11/18 21:00 08/28/18 08:59 08/21/18 21:14 Insulin Aspart (NovoLOG) BEFORE MEALS AND HS SUBQ 08/11/18 16:30 09/10/18 11:29 08/22/18 05:20 Insulin Aspart (NovoLOG) 4 units NOVOTIAC SUBQ 08/18/18 11:50 09/10/18 07:59 08/22/18 05:22 Insulin Detemir (Levemir) 9 units BID SUBQ 08/22/18 09:00 09/10/18 08:59 Pantoprazole (Protonix) 40 mg BIAC ORAL 08/11/18 16:30 09/10/18 16:29 08/22/18 05:39 Quetiapine Fumarate (SEROquel) 25 mg Q12HR ORAL 08/11/18 21:00 09/08/18 12:14 08/21/18 21:08 Quetiapine Fumarate (SEROquel) 25 mg Q6H PRN ORAL For Anxiety 08/11/18 14:30 08/31/18 14:29 Sevelamer Carbonate (Renvela) 800 mg THREE TIMES A DAY ORAL 08/13/18 09:00 09/12/18 08:59 08/21/18 18:07 Sodium Chloride 1,000 ml @ 75 mls/hr [id number] IV 08/11/18 14:30 09/09/18 14:29 08/22/18 04:37 Vitamin B Complex/ Vit C/Folic Acid (Nephrovite) 1 tab DAILY ORAL 08/12/18 09:00 08/29/18 08:59 08/21/18 09:14 Laboratory Tests 08/22/18 05:20: White Blood Count 10.1, Red Blood Count 3.59L, Hemoglobin 11.4L, Hematocrit 37.2L, Mean Corpuscular Volume 104H, Mean Corpuscular Hemoglobin 31.8H, Mean Corpuscular Hemoglobin Concent 30.6L, Red Cell Distribution Width 19.4H, Platelet Count 353, Mean Platelet Volume 5.0L, Neutrophils (%) (Auto) , Lymphocytes (%) (Auto) , Monocytes (%) (Auto) , Eosinophils (%) (Auto) , Basophils (%) (Auto) , Neutrophils % (Manual) [Pending], Lymphocytes % (Manual) [Pending], Platelet Estimate [Pending], Platelet Morphology [Pending], Sodium Level [Pending], Potassium Level [Pending], Chloride Level [Pending], Carbon Dioxide Level [Pending], Blood Urea Nitrogen [Pending], Creatinine [Pending], Estimat Glomerular Filtration Rate [Pending], Glucose Level [Pending], Calcium Level [Pending], Phosphorus Level [Pending], Magnesium Level [Pending], Total Bilirubin [Pending], Aspartate Amino Transf (AST/SGOT) [Pending], Alanine Aminotransferase (ALT/SGPT) [Pending], Alkaline Phosphatase [Pending], C- Reactive Protein, Quantitative [Pending], Pro-B-Type Natriuretic Peptide [ Pending], Total Protein [Pending], Albumin [Pending], Globulin [Pending] Height (Feet): 6 Height (Inches): 0.00 Weight (Pounds): 148 Objective exam stable Ye Rios MD Aug 22, 2018 07:41
[2018-08-22] MEDS: DULoxetine 30mg cap ORAL SCH (09:44)
[2018-08-22] MEDS: Nephrovite tab (Rena-Vite) ORAL SCH (09:45)
[2018-08-22] MEDS: Levemir Flexpen SUBQ SCH ×2 (09:47→17:52)
[2018-08-22] MEDS: Heparin 5000 units/ml inj SUBQ SCH ×2 (09:52→21:00)
--- NOTE | 2018-08-22 10:47 | General Progress Note ---
Assessment/Plan Problem List: (1) encephalopathy due to metabolic do (2) Major depressive disorder ICD Codes: F32.9 - Major depressive disorder, single episode, unspecified SNOMED: 774470531 Status: stable, progressing Assessment/Plan increase Cymbalta 60mg qam seroquel 25mg q6hr prn agitation seroquel 25mg po bid provided ro/st Subjective Neurologic/Psychiatric: Reports: anxiety, depressed, emotional problems Allergies: Coded Allergies: CEFEPIME (Verified Allergy, Intermediate, Rash, 03/01/18) Tolerates Carbapenem Objective Last 24 Hour Vital Signs Date Time Temp Pulse Resp B/P (MAP) Pulse Ox O2 Delivery O2 Flow Rate FiO2 08/22/18 05:16 99.1 121 21 138/80 97 Room Air 08/21/18 21:00 Room Air 08/21/18 16:00 98.6 126 17 115/83 96 Room Air 08/21/18 12:00 98.0 110 17 98 Intake and Output 08/21/18 08/22/18 18:59 06:59 Intake Total 1800 ml 750 ml Output Total 1100 ml 400 ml Balance 700 ml 350 ml Intake Oral 100 ml IV Total 800 ml 650 ml Other 1000 ml Output Urine Total 1100 ml 400 ml Laboratory Tests 08/22/18 05:20: White Blood Count 10.1, Red Blood Count 3.59L, Hemoglobin 11.4L, Hematocrit 37.2L, Mean Corpuscular Volume 104H, Mean Corpuscular Hemoglobin 31.8H, Mean Corpuscular Hemoglobin Concent 30.6L, Red Cell Distribution Width 19.4H, Platelet Count 353, Mean Platelet Volume 5.0L, Neutrophils (%) (Auto) , Lymphocytes (%) (Auto) , Monocytes (%) (Auto) , Eosinophils (%) (Auto) , Basophils (%) (Auto) , Differential Total Cells Counted 100, Neutrophils % ( Manual) 95H, Lymphocytes % (Manual) 2L, Monocytes % (Manual) 2, Eosinophils % ( Manual) 1, Basophils % (Manual) 0, Band Neutrophils 0, Platelet Estimate Adequate, Platelet Morphology Normal, Anisocytosis 1+, Macrocytosis 1+ Height (Feet): 6 Height (Inches): 0.00 Weight (Pounds): 148 General Appearance: no apparent distress, alert Neurologic: oriented x 3, responsive, depressed affect Fatmata Lu MD Aug 22, 2018 10:47
--- NOTE | 2018-08-22 12:00 | NUR ---
NURSE NOTES: Dr Rosado made aware of pt skin concern to forearm . Elevated pulse, refusal of labs infiltration of iv to foot. No new orders at this time
--- NOTE | 2018-08-22 12:16 | Infectious Diseases Prog Note ---
Assessment/Plan Assessment/Plan Right wrist IV site infection Severe sepsis - Resolved -likely 2ry to UTI- SP, s/p rx -u.a wbc tntc, nit neg, luek +3; ucx <10k GPC -Bcx Neg -CXR: Suspected atelectasis or scarring right Afebrile Leukocytosis, SP DKA RIVKA, improving hx of recent sepsis 2ry to UTI and bacteremia 07/08/18 UCx - P.a. MDR and Providencia 07/08/18 BCx ESBL Proteus and K. pneumo Dm2 HLD MDD with suicidal attempts in the past w/ resultant chronic encephalopathy CAD/OK BPH anemia asthma colonic polyps ESRD s/p renal and pancreas tx ~10 yrs ago now CKD 4 ConS bacteremia/line infection urinary retention s/p suprapubic catheter 09/2017 recurrent hematuria multiple hospital admissions recurrent UTI DNR Plan: -Continue Clindamycin #5/ for infected IV site -08/02 SP Meropenem d# 5 07/29 SP one dose Amikacin -07/22 SP Meropenem, #14 - f/u cx -Monitor CBC/CMP, temperatures -CBC, CMp am Subjective Allergies: Coded Allergies: CEFEPIME (Verified Allergy, Intermediate, Rash, 03/01/18) Tolerates Carbapenem Subjective afebrile no leukocytosis Objective Vital Signs Last 24 Hour Vital Signs Date Time Temp Pulse Resp B/P (MAP) Pulse Ox O2 Delivery O2 Flow Rate FiO2 08/22/18 05:16 99.1 121 21 138/80 97 Room Air 08/21/18 21:00 Room Air 08/21/18 16:00 98.6 126 17 115/83 96 Room Air Height (Feet): 6 Height (Inches): 0.00 Weight (Pounds): 148 Objective Status: awake HEENT: atraumatic Lungs: chest wall tender Heart: HR/BP stable Abdomen: soft, non-tender Extremities: no C/C/E Decubiti: location Laboratory Tests Test 08/22/18 05:20 White Blood Count 10.1 K/UL (4.8-10.8) Red Blood Count 3.59 M/UL (4.70-6.10) L Hemoglobin 11.4 G/DL (14.2-18.0) L Hematocrit 37.2 % (42.0-52.0) L Mean Corpuscular Volume 104 FL (80-99) H Mean Corpuscular Hemoglobin 31.8 PG (27.0-31.0) H Mean Corpuscular Hemoglobin Concent 30.6 G/DL (32.0-36.0) L Red Cell Distribution Width 19.4 % (11.6-14.8) H Platelet Count 353 K/UL (150-450) Mean Platelet Volume 5.0 FL (6.5-10.1) L Neutrophils (%) (Auto) % (45.0-75.0) Lymphocytes (%) (Auto) % (20.0-45.0) Monocytes (%) (Auto) % (1.0-10.0) Eosinophils (%) (Auto) % (0.0-3.0) Basophils (%) (Auto) % (0.0-2.0) Differential Total Cells Counted 100 Neutrophils % (Manual) 95 % (45-75) H Lymphocytes % (Manual) 2 % (20-45) L Monocytes % (Manual) 2 % (1-10) Eosinophils % (Manual) 1 % (0-3) Basophils % (Manual) 0 % (0-2) Band Neutrophils 0 % (0-8) Platelet Estimate Adequate Platelet Morphology Normal Anisocytosis 1+ Macrocytosis 1+ Current Medications Medications (Trade) Dose Ordered Sig/Dunia Route PRN Reason Start Time Stop Time Status Last Admin Dose Admin Clindamycin HCl/ Dextrose 50 ml @ 100 mls/hr Q8HR IV 08/18/18 14:00 08/25/18 13:59 08/22/18 05:01 Dextrose (Dextrose 50%) 25 ml Q30M PRN IV Hypoglycemia 08/11/18 14:30 09/10/18 14:29 08/16/18 17:03 Dextrose (Dextrose 50%) 50 ml Q30M PRN IV Hypoglycemia 08/11/18 14:30 09/10/18 14:29 08/18/18 21:17 Duloxetine HCl (Cymbalta) 60 mg DAILY ORAL 08/18/18 09:00 09/17/18 08:59 08/22/18 09:44 Epoetin Jose (Epoetin Jose-EPBX(NON ESRD)) 10,000 unit SUBQ 08/12/18 21:00 09/02/18 20:59 08/19/18 20:58 Heparin Sodium (Porcine) (Heparin 5000 units/ml) 5,000 units EVERY 12 HOURS SUBQ 08/11/18 21:00 08/28/18 08:59 08/22/18 09:52 Insulin Aspart (NovoLOG) BEFORE MEALS AND HS SUBQ 08/11/18 16:30 09/10/18 11:29 08/22/18 05:20 Insulin Aspart (NovoLOG) 4 units NOVOTIAC SUBQ 08/18/18 11:50 09/10/18 07:59 08/22/18 05:22 Insulin Detemir (Levemir) 9 units BID SUBQ 08/22/18 09:00 09/10/18 08:59 08/22/18 09:47 Pantoprazole (Protonix) 40 mg BIAC ORAL 08/11/18 16:30 09/10/18 16:29 08/22/18 05:39 Quetiapine Fumarate (SEROquel) 25 mg Q12HR ORAL 08/11/18 21:00 09/08/18 12:14 08/22/18 09:44 Quetiapine Fumarate (SEROquel) 25 mg Q6H PRN ORAL For Anxiety 08/11/18 14:30 08/31/18 14:29 Sevelamer Carbonate (Renvela) 800 mg THREE TIMES A DAY ORAL 08/13/18 09:00 09/12/18 08:59 08/22/18 09:45 Sodium Chloride 1,000 ml @ 75 mls/hr [id number] IV 08/11/18 14:30 09/09/18 14:29 08/22/18 04:37 Vitamin B Complex/ Vit C/Folic Acid (Nephrovite) 1 tab DAILY ORAL 08/12/18 09:00 08/29/18 08:59 08/22/18 09:45 Monique Read M.D. Aug 22, 2018 12:16
--- NOTE | 2018-08-22 12:51 | Nephrology Progress Note ---
Assessment/Plan Problem List: (1) Acute on chronic renal failure (2) Bladder outlet obstruction (3) Anemia in chronic kidney disease (4) BPH (benign prostatic hypertrophy) (5) DKA (diabetic ketoacidoses) (6) Encephalopathy acute Assessment High Glucose now improved ESRD , in need of dialysis , refuses- presents with high K Encephalopathy , Metabolic Acidosis , Uremic and Diabetic Sever Anemia: Mixed etiology HTn, but presents with low BP Supra Pubic Cath, h/o UTI, BPH Psych disease CAD, elevated Troponin I s/p DKAs Plan no labs today Kayexelate for high K as needed Transfuse as needed Sugar control will do poorly in view of no dialysis plans DNR per orders DOES NOT AGREE TO DIALYSIS TREATMENT DC planning in process Subjective ROS Limited/Unobtainable: No Constitutional: Reports: malaise, weakness Objective Objective Last 24 Hour Vital Signs Date Time Temp Pulse Resp B/P (MAP) Pulse Ox O2 Delivery O2 Flow Rate FiO2 08/22/18 05:16 99.1 121 21 138/80 97 Room Air 08/21/18 21:00 Room Air 08/21/18 16:00 98.6 126 17 115/83 96 Room Air Intake and Output 08/21/18 08/22/18 18:59 06:59 Intake Total 1800 ml 750 ml Output Total 1100 ml 400 ml Balance 700 ml 350 ml Intake Oral 100 ml IV Total 800 ml 650 ml Other 1000 ml Output Urine Total 1100 ml 400 ml Laboratory Tests 08/22/18 05:20: White Blood Count 10.1, Red Blood Count 3.59L, Hemoglobin 11.4L, Hematocrit 37.2L, Mean Corpuscular Volume 104H, Mean Corpuscular Hemoglobin 31.8H, Mean Corpuscular Hemoglobin Concent 30.6L, Red Cell Distribution Width 19.4H, Platelet Count 353, Mean Platelet Volume 5.0L, Neutrophils (%) (Auto) , Lymphocytes (%) (Auto) , Monocytes (%) (Auto) , Eosinophils (%) (Auto) , Basophils (%) (Auto) , Differential Total Cells Counted 100, Neutrophils % ( Manual) 95H, Lymphocytes % (Manual) 2L, Monocytes % (Manual) 2, Eosinophils % ( Manual) 1, Basophils % (Manual) 0, Band Neutrophils 0, Platelet Estimate Adequate, Platelet Morphology Normal, Anisocytosis 1+, Macrocytosis 1+ Height (Feet): 6 Height (Inches): 0.00 Weight (Pounds): 148 General Appearance: no apparent distress Cardiovascular: tachycardia Respiratory/Chest: decreased breath sounds Abdomen: distended Objective no change Luis Chambers MD Aug 22, 2018 12:51
--- NOTE | 2018-08-22 13:23 | NUR ---
[facility] SI; HYPERGLYCEMIA/DKA T. 99.1 HR 121 RR 21 B/P 138/80 RA 98% IS: CLINDAMYCIN IV IVF NS @ 75ML/HR HEPARIN SUBC MED/SURG STATUS
--- NOTE | 2018-08-22 13:23 | Consultation ---
History of Present Illness General Date patient seen: Aug 22, 2018 Reason for Hospitalization: right wrist infection Present Illness HPI 63 year old male with multiple medical comorbidities currently admitted for medical care and management. During hospitalization had right wrist IV which infiltrated and has since formed an infection. surgery called to evaluate for possible drainable abscess. patient seen, chart reviewed, patient examined. c/o pain from area on palpation Allergies: Coded Allergies: CEFEPIME (Verified Allergy, Intermediate, Rash, 03/01/18) Tolerates Carbapenem Medication History Scheduled Amlodipine Besylate (Norvasc), 5 MG ORAL DAILY, (Reported) Atorvastatin Calcium* (Lipitor*), 10 MG ORAL BEDTIME Azathioprine* (Imuran*), 50 MG PO DAILY, (Reported) Clindamycin HCl (Clindamycin HCl), 150 MG ORAL EVERY 6 HOURS Daptomycin (DAPTOmycin), 350 MG IV EVERY OTHER DAY Docusate Sodium* (Colace*), 100 MG ORAL TWICE A DAY, (Reported) Duloxetine Hcl* (Cymbalta*), 30 MG ORAL DAILY, (Reported) Ertapenem Sodium* (INVanz*), 1 GM IVPB DAILY, (Reported) Insulin Aspart (Novolog Flexpen), 6 UNITS SUBQ NOVOTIAC Insulin Detemir (Levemir Flexpen), 12 UNITS SUBQ BID Insulin Detemir (Levemir Flextouch), 12 UNIT SQ BID, (Reported) Magnesium Hydroxide* (Milk Of Magnesia*), 30 ML ORAL DAILY, (Reported) Meropenem (Meropenem), 1 GM IV EVERY 12 HOURS Meropenem-0.9% Sodium Chloride (Meropenem-0.9% NaCl 500 mg/50), 500 MG IV DAILY Metoprolol Succinate* (Metoprolol Succinate*), 50 MG ORAL Q12HR, (Reported) Metoprolol Succinate* (Metoprolol Succinate*), 12.5 MG ORAL DAILY, (Reported) Omeprazole (Omeprazole), 20 MG ORAL DAILY, (Reported) Polyethylene Glycol 3350* (Miralax*), 17 GM ORAL DAILY, (Reported) Polyethylene Glycol* (Miralax*), 17 GM ORAL BEDTIME Sevelamer Carbonate* (Renvela*), 800 MG ORAL THREE TIMES A DAY, (Reported) Tamsulosin Hcl (Tamsulosin Hcl*), 8 MG ORAL BEDTIME, (Reported) Vitamin B Cmplx/Vit C/Folic AC (Nephro-Enedina Tablet), 1 TAB ORAL DAILY, (Reported ) Vitamin D (Vitamin D3), 5,000 UNITS ORAL DAILY, (Reported) Scheduled PRN Acetaminophen* (Acetaminophen 325MG Tablet*), 650 MG ORAL Q6H PRN for For Pain, (Reported) Hydrocortisone (Hydrocortisone), 1 % TP BID PRN for Itching, (Reported) Ondansetron* (Zofran*), 4 MG ORAL Q6H PRN for Nausea & Vomiting, (Reported) Miscellaneous Medications Bisacodyl (Dulcolax), 10 MG RC, (Reported) Insulin Aspart (Novolog Flexpen), (Reported) Patient History Healthcare decision maker Resuscitation status Do Not Resuscitate Advanced Directive on File No Past Medical/Surgical History Past Medical/Surgical History: (1) encephalopathy due to metabolic do (2) CKD (chronic kidney disease), stage III (3) DKA (diabetic ketoacidoses) (4) C. 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 (16) Bacteremia (17) DVT (deep venous thrombosis) (18) Vitamin D deficiency (19) Encephalopathy acute (20) Renal mass, right (21) Bladder outlet obstruction (22) Major depressive disorder (23) HTN (hypertension) (24) Type 1 diabetes mellitus (25) Hyperkalemia (26) NSTEMI (non-ST elevated myocardial infarction) (27) UTI (urinary tract infection) Review of Systems Review of Symptoms General ROS: no weight loss or fever Psychological ROS: no depression or mood changes, no memory loss Ophthalmic ROS: no visual changes or eye irritation ENT ROS: no nasal congestion, hearing loss, dizziness Allergy and Immunology ROS: no allergic symptoms or urticaria Hematological and Lymphatic ROS: no swollen glands, unusual bleeding or bruising Endocrine ROS: no polyuria, polydipsia, weight changes, temperature intolerance Respiratory ROS: no cough, shortness of breath, or wheezing Cardiovascular ROS: no chest pain or dyspnea on exertion Gastrointestinal ROS: denies abdominal pain, bright red blood in stool. Musculoskeletal ROS: no myalgias or arthralgias Neurological ROS: no TIA or stroke symptoms Dermatological ROS: no new or changing skin lesions, rashes or pruritis Physical Exam Physical Exam General appearance: alert, cooperative, no distress, appears stated age Head: Normocephalic, without obvious abnormality, atraumatic Eyes: conjunctivae/corneas clear. PERRL, EOM's intact. Fundi benign Throat: Lips, mucosa, and tongue normal. Teeth and gums normal Neck: supple, symmetrical, trachea midline, no adenopathy, thyroid: not enlarged, symmetric, no tenderness/mass/nodules, no carotid bruit and no JVD Lungs: clear to auscultation bilaterally Heart: regular rate and rhythm, S1, S2 normal, no murmur, click, rub or gallop Abdomen: soft, non-tender. Bowel sounds normal. No masses, no organomegaly Extremities: extremities normal, atraumatic, no cyanosis or edema. right wrist with 5cm x 4cm area of induration/cellulitis. at apex there is a 3mm open ulceration with sloth noted at base likely IV site. no drainage. tender Pulses: 2+ and symmetric Skin: Skin color, texture, turgor normal. No rashes or lesions Neurologic: Grossly normal Last 24 Hour Vital Signs Date Time Temp Pulse Resp B/P (MAP) Pulse Ox O2 Delivery O2 Flow Rate FiO2 08/22/18 05:16 99.1 121 21 138/80 97 Room Air 08/21/18 21:00 Room Air 08/21/18 16:00 98.6 126 17 115/83 96 Room Air Intake and Output 08/21/18 08/22/18 18:59 06:59 Intake Total 1800 ml 750 ml Output Total 1100 ml 400 ml Balance 700 ml 350 ml Intake Oral 100 ml IV Total 800 ml 650 ml Other 1000 ml Output Urine Total 1100 ml 400 ml Laboratory Tests Test 08/22/18 05:20 White Blood Count 10.1 K/UL (4.8-10.8) Red Blood Count 3.59 M/UL (4.70-6.10) L Hemoglobin 11.4 G/DL (14.2-18.0) L Hematocrit 37.2 % (42.0-52.0) L Mean Corpuscular Volume 104 FL (80-99) H Mean Corpuscular Hemoglobin 31.8 PG (27.0-31.0) H Mean Corpuscular Hemoglobin Concent 30.6 G/DL (32.0-36.0) L Red Cell Distribution Width 19.4 % (11.6-14.8) H Platelet Count 353 K/UL (150-450) Mean Platelet Volume 5.0 FL (6.5-10.1) L Neutrophils (%) (Auto) % (45.0-75.0) Lymphocytes (%) (Auto) % (20.0-45.0) Monocytes (%) (Auto) % (1.0-10.0) Eosinophils (%) (Auto) % (0.0-3.0) Basophils (%) (Auto) % (0.0-2.0) Differential Total Cells Counted 100 Neutrophils % (Manual) 95 % (45-75) H Lymphocytes % (Manual) 2 % (20-45) L Monocytes % (Manual) 2 % (1-10) Eosinophils % (Manual) 1 % (0-3) Basophils % (Manual) 0 % (0-2) Band Neutrophils 0 % (0-8) Platelet Estimate Adequate Platelet Morphology Normal Anisocytosis 1+ Macrocytosis 1+ Height (Feet): 6 Height (Inches): 0.00 Weight (Pounds): 148 Medications Current Medications Medications (Trade) Dose Ordered Sig/Dunia Route PRN Reason Start Time Stop Time Status Last Admin Dose Admin Clindamycin HCl/ Dextrose 50 ml @ 100 mls/hr Q8HR IV 08/18/18 14:00 08/25/18 13:59 08/22/18 05:01 Dextrose (Dextrose 50%) 25 ml Q30M PRN IV Hypoglycemia 08/11/18 14:30 09/10/18 14:29 08/16/18 17:03 Dextrose (Dextrose 50%) 50 ml Q30M PRN IV Hypoglycemia 08/11/18 14:30 09/10/18 14:29 08/18/18 21:17 Duloxetine HCl (Cymbalta) 60 mg DAILY ORAL 08/18/18 09:00 09/17/18 08:59 08/22/18 09:44 Epoetin Jose (Epoetin Jose-EPBX(NON ESRD)) 10,000 unit WED-WED-FRI SUBQ 08/12/18 21:00 09/02/18 20:59 08/19/18 20:58 Heparin Sodium (Porcine) (Heparin 5000 units/ml) 5,000 units EVERY 12 HOURS SUBQ 08/11/18 21:00 08/28/18 08:59 08/22/18 09:52 Insulin Aspart (NovoLOG) BEFORE MEALS AND HS SUBQ 08/11/18 16:30 09/10/18 11:29 08/22/18 13:15 Insulin Aspart (NovoLOG) 4 units NOVOTIAC SUBQ 08/18/18 11:50 09/10/18 07:59 08/22/18 13:13 Insulin Detemir (Levemir) 9 units BID SUBQ 08/22/18 09:00 09/10/18 08:59 08/22/18 09:47 Pantoprazole (Protonix) 40 mg BIAC ORAL 08/11/18 16:30 09/10/18 16:29 08/22/18 05:39 Quetiapine Fumarate (SEROquel) 25 mg Q12HR ORAL 08/11/18 21:00 09/08/18 12:14 08/22/18 09:44 Quetiapine Fumarate (SEROquel) 25 mg Q6H PRN ORAL For Anxiety 08/11/18 14:30 08/31/18 14:29 Sevelamer Carbonate (Renvela) 800 mg THREE TIMES A DAY ORAL 08/13/18 09:00 09/12/18 08:59 08/22/18 13:10 Sodium Chloride 1,000 ml @ 75 mls/hr [id number] IV 08/11/18 14:30 09/09/18 14:29 08/22/18 04:37 Vitamin B Complex/ Vit C/Folic Acid (Nephrovite) 1 tab DAILY ORAL 08/12/18 09:00 08/29/18 08:59 08/22/18 09:45 Assessment/Plan Problem List: (1) Cellulitis of right arm Assessment & Plan: cellulitis of right wrist after IV infiltrated open are that spontaneously drained prior no significant fluctuance noted ulcerated 3mm area with fibrinous debris at base no acute surgical intervention planned may develop into abscess that will need drainage later warm compress anti inflammatory gauze dressing and wrap daily thank you will follow with recs ICD Codes: L03.113 - Cellulitis of right upper limb SNOMED: [id number] Jcarlos Martinez Aug 22, 2018 13:23
--- NOTE | 2018-08-22 14:36 | Pulmonology Progress Note ---
Assessment/Plan Problems: (1) Encephalopathy acute (2) DKA (diabetic ketoacidoses) (3) Anemia in chronic kidney disease (4) CKD (chronic kidney disease), stage III (5) Major depressive disorder (6) Bladder outlet obstruction (7) Suprapubic catheter Assessment/Plan no new complains doing better again creatinine lower eating better Bs better controlled all reviewed check electrolytes continue DNR dvt prophylaxis Subjective ROS Limited/Unobtainable: No Constitutional: Reports: no symptoms HEENT: Repors: no symptoms Respiratory: Reports: no symptoms Allergies: Coded Allergies: CEFEPIME (Verified Allergy, Intermediate, Rash, 03/01/18) Tolerates Carbapenem Objective Last 24 Hour Vital Signs Date Time Temp Pulse Resp B/P (MAP) Pulse Ox O2 Delivery O2 Flow Rate FiO2 08/22/18 05:16 99.1 121 21 138/80 97 Room Air 08/21/18 21:00 Room Air 08/21/18 16:00 98.6 126 17 115/83 96 Room Air Intake and Output 08/21/18 08/22/18 18:59 06:59 Intake Total 1800 ml 750 ml Output Total 1100 ml 400 ml Balance 700 ml 350 ml Intake Oral 100 ml IV Total 800 ml 650 ml Other 1000 ml Output Urine Total 1100 ml 400 ml Objective General Appearance: WD/WN HEENT: normocephalic, atraumatic, anicteric Respiratory/Chest: chest wall non-tender, lungs clear Breasts: no masses Cardiovascular: normal peripheral pulses, normal rate Abdomen: normal bowel sounds, soft, non tender Extremities: no cyanosis Skin: no rash Neurologic/Psychiatric: continuous still operator II-XII grossly normal Lymphatic: no neck adenopathy Laboratory Tests 08/22/18 05:20: White Blood Count 10.1, Red Blood Count 3.59L, Hemoglobin 11.4L, Hematocrit 37.2L, Mean Corpuscular Volume 104H, Mean Corpuscular Hemoglobin 31.8H, Mean Corpuscular Hemoglobin Concent 30.6L, Red Cell Distribution Width 19.4H, Platelet Count 353, Mean Platelet Volume 5.0L, Neutrophils (%) (Auto) , Lymphocytes (%) (Auto) , Monocytes (%) (Auto) , Eosinophils (%) (Auto) , Basophils (%) (Auto) , Differential Total Cells Counted 100, Neutrophils % ( Manual) 95H, Lymphocytes % (Manual) 2L, Monocytes % (Manual) 2, Eosinophils % ( Manual) 1, Basophils % (Manual) 0, Band Neutrophils 0, Platelet Estimate Adequate, Platelet Morphology Normal, Anisocytosis 1+, Macrocytosis 1+ Current Medications Medications (Trade) Dose Ordered Sig/Dunia Route PRN Reason Start Time Stop Time Status Last Admin Dose Admin Clindamycin HCl/ Dextrose 50 ml @ 100 mls/hr Q8HR IV 08/18/18 14:00 08/25/18 13:59 08/22/18 05:01 Dextrose (Dextrose 50%) 25 ml Q30M PRN IV Hypoglycemia 08/11/18 14:30 09/10/18 14:29 08/16/18 17:03 Dextrose (Dextrose 50%) 50 ml Q30M PRN IV Hypoglycemia 08/11/18 14:30 09/10/18 14:29 08/18/18 21:17 Duloxetine HCl (Cymbalta) 60 mg DAILY ORAL 08/18/18 09:00 09/17/18 08:59 08/22/18 09:44 Epoetin Jose (Epoetin Jose-EPBX(NON ESRD)) 10,000 unit WED-WED-WED SUBQ 08/12/18 21:00 09/02/18 20:59 08/19/18 20:58 Heparin Sodium (Porcine) (Heparin 5000 units/ml) 5,000 units EVERY 12 HOURS SUBQ 08/11/18 21:00 08/28/18 08:59 08/22/18 09:52 Insulin Aspart (NovoLOG) BEFORE MEALS AND HS SUBQ 08/11/18 16:30 09/10/18 11:29 08/22/18 13:15 Insulin Aspart (NovoLOG) 4 units NOVOTIAC SUBQ 08/18/18 11:50 09/10/18 07:59 08/22/18 13:13 Insulin Detemir (Levemir) 9 units BID SUBQ 08/22/18 09:00 09/10/18 08:59 08/22/18 09:47 Pantoprazole (Protonix) 40 mg BIAC ORAL 08/11/18 16:30 09/10/18 16:29 08/22/18 05:39 Quetiapine Fumarate (SEROquel) 25 mg Q12HR ORAL 08/11/18 21:00 09/08/18 12:14 08/22/18 09:44 Quetiapine Fumarate (SEROquel) 25 mg Q6H PRN ORAL For Anxiety 08/11/18 14:30 08/31/18 14:29 Sevelamer Carbonate (Renvela) 800 mg THREE TIMES A DAY ORAL 08/13/18 09:00 09/12/18 08:59 08/22/18 13:10 Sodium Chloride 1,000 ml @ 75 mls/hr [id number] IV 08/11/18 14:30 09/09/18 14:29 08/22/18 04:37 Vitamin B Complex/ Vit C/Folic Acid (Nephrovite) 1 tab DAILY ORAL 08/12/18 09:00 08/29/18 08:59 08/22/18 09:45 Esdras Delgado MD Aug 22, 2018 14:36
--- NOTE | 2018-08-22 15:00 | NUR ---
NURSE NOTES: NURSE NOTES: Dr Martinez came to see pt, stated he did not need surgery and that it was not puss coming from site on forearm
[2018-08-22 16:00] VITALS: BP 152/114
--- NOTE | 2018-08-22 18:09 | NUR ---
NURSE NOTES: Previous bag not finished . Pt did not have iv acces
--- NOTE | 2018-08-22 19:14 | Internal Med Progress Note ---
Subjective Date of Service: Aug 22, 2018 Physician Name Jose Glasgow Attending Physician Christopher Rosado MD Current Medications Medications (Trade) Dose Ordered Sig/Dunia Route PRN Reason Start Time Stop Time Status Last Admin Dose Admin Clindamycin HCl/ Dextrose 50 ml @ 100 mls/hr Q8HR IV 08/22/18 18:30 08/29/18 18:29 Dextrose (Dextrose 50%) 25 ml Q30M PRN IV Hypoglycemia 08/11/18 14:30 09/10/18 14:29 08/16/18 17:03 Dextrose (Dextrose 50%) 50 ml Q30M PRN IV Hypoglycemia 08/11/18 14:30 09/10/18 14:29 08/18/18 21:17 Duloxetine HCl (Cymbalta) 60 mg DAILY ORAL 08/18/18 09:00 09/17/18 08:59 08/22/18 09:44 Epoetin Jose (Epoetin Jose-EPBX(NON ESRD)) 8,000 unit WED-WED-WED SUBQ 08/22/18 21:00 09/21/18 20:59 Heparin Sodium (Porcine) (Heparin 5000 units/ml) 5,000 units EVERY 12 HOURS SUBQ 08/11/18 21:00 08/28/18 08:59 08/22/18 09:52 Insulin Aspart (NovoLOG) BEFORE MEALS AND HS SUBQ 08/11/18 16:30 09/10/18 11:29 08/22/18 17:55 Insulin Aspart (NovoLOG) 4 units NOVOTIAC SUBQ 08/18/18 11:50 09/10/18 07:59 08/22/18 17:54 Insulin Detemir (Levemir) 9 units BID SUBQ 08/22/18 09:00 09/10/18 08:59 08/22/18 17:52 Pantoprazole (Protonix) 40 mg BIAC ORAL 08/11/18 16:30 09/10/18 16:29 08/22/18 17:51 Quetiapine Fumarate (SEROquel) 25 mg Q12HR ORAL 08/11/18 21:00 09/08/18 12:14 08/22/18 09:44 Quetiapine Fumarate (SEROquel) 25 mg Q6H PRN ORAL For Anxiety 08/11/18 14:30 08/31/18 14:29 Sevelamer Carbonate (Renvela) 800 mg THREE TIMES A DAY ORAL 08/13/18 09:00 09/12/18 08:59 08/22/18 17:51 Sodium Chloride 1,000 ml @ 75 mls/hr [id number] IV 08/11/18 14:30 09/09/18 14:29 08/22/18 04:37 Vitamin B Complex/ Vit C/Folic Acid (Nephrovite) 1 tab DAILY ORAL 08/12/18 09:00 08/29/18 08:59 08/22/18 09:45 Allergies: Coded Allergies: CEFEPIME (Verified Allergy, Intermediate, Rash, 03/01/18) Tolerates Carbapenem ROS Limited/Unobtainable: No Constitutional: Reports: no symptoms HEENT: Reports: no symptoms Cardiovascular: Reports: no symptoms Respiratory: Reports: no symptoms Gastrointestinal/Abdominal: Reports: no symptoms Genitourinary: Reports: no symptoms Neurologic/Psychiatric: Reports: no symptoms Subjective 63 YO M with history of diabetes I admitted with hyperglycemia and DKA. Cover for Int Med-Dr Rosado. Await acceptance to [facility] Objective Last Vital Signs Date Time Temp Pulse Resp B/P (MAP) Pulse Ox O2 Delivery O2 Flow Rate FiO2 08/22/18 05:16 99.1 121 21 138/80 97 Room Air 08/19/18 09:34 21 Laboratory Tests Test 08/22/18 05:20 White Blood Count 10.1 K/UL (4.8-10.8) Red Blood Count 3.59 M/UL (4.70-6.10) L Hemoglobin 11.4 G/DL (14.2-18.0) L Hematocrit 37.2 % (42.0-52.0) L Mean Corpuscular Volume 104 FL (80-99) H Mean Corpuscular Hemoglobin 31.8 PG (27.0-31.0) H Mean Corpuscular Hemoglobin Concent 30.6 G/DL (32.0-36.0) L Red Cell Distribution Width 19.4 % (11.6-14.8) H Platelet Count 353 K/UL (150-450) Mean Platelet Volume 5.0 FL (6.5-10.1) L Neutrophils (%) (Auto) % (45.0-75.0) Lymphocytes (%) (Auto) % (20.0-45.0) Monocytes (%) (Auto) % (1.0-10.0) Eosinophils (%) (Auto) % (0.0-3.0) Basophils (%) (Auto) % (0.0-2.0) Differential Total Cells Counted 100 Neutrophils % (Manual) 95 % (45-75) H Lymphocytes % (Manual) 2 % (20-45) L Monocytes % (Manual) 2 % (1-10) Eosinophils % (Manual) 1 % (0-3) Basophils % (Manual) 0 % (0-2) Band Neutrophils 0 % (0-8) Platelet Estimate Adequate Platelet Morphology Normal Anisocytosis 1+ Macrocytosis 1+ Intake and Output 08/21/18 08/22/18 19:00 07:00 Intake Total 1875 ml 675 ml Output Total 1100 ml 400 ml Balance 775 ml 275 ml Intake Oral 100 ml IV Total 875 ml 575 ml Other 1000 ml Output Urine Total 1100 ml 400 ml Objective GENERAL: The patient is awake and responsive but confused, in no acute distress. HEAD AND NECK: Pupils are equal and reactive to light. Extraocular movements are intact in the right eye. Left eye blindness, Neck was supple. No JVD. LUNGS: fair air entry. No wheezing or rales. HEART: S1 and S2. Distant heart sounds. No Murmur or gallops. ABDOMEN: Soft, nontender, and nontender. Suprapubic catheter was noted. EXTREMITIES: No cyanosis or clubbing. Bilateral lower extremity trace LE's edema. NEUROLOGIC: Cranial nerves II through XII grossly intact. Motor is 5/5 in all extremities. Gait was not assessed due to the patient's status. Assessment/Plan Assessment/Plan ASSESSMENT: 1. DKA. 2. Hypertension. 3. Dyslipidemia. 4. Diabetes type 1 with prior history of diabetic ketoacidosis. 5. Diabetic retinopathy of the left eye blindness. 6. End-stage renal disease secondary to diabetic nephrosclerosis. 7. Coronary artery disease with prior history of myocardial infarction. 8. 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 9. 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 10. Secondary hyperparathyroidism with vitamin D deficiency. 11. Anemia of chronic kidney disease. 12. Metabolic acidosis. 13. Depression with prior suicide attempt. 14. Acute encephalopathy due to toxic metabolic encephalopathy due to DKA. 15. Hyperkalemia PLAN: 1. Med/surg 2. Code status is DNR/DNI as per MALINDA in the chart. 3. Resume alf medications. 4. Follow up with Labs and culture. 5. Broad spectrum antibiotic with Meropenem. 6. DVT prophylaxis, heparin subcutaneous. 7. We will follow up with Dr. Delgado with critical care , Dr. Chambers from Nephrology and Dr. Rich Wick from Infectious Disease. 8. We will follow up with the cultures and laboratory in the morning. 9. Better control with Levemir and Insulin sliding scale per endocrinology; FSBG [phone] 10. Discharge planning: [facility] when bed available. Jose Glasgow MD Aug 22, 2018 19:14
--- NOTE | 2018-08-22 19:43 | NUR ---
NURSE NOTES: Received patient in bed, awake, tachycardia, HR 135, temp 100.0 axiliary. Patient is bed bound, call light is within reach, bed is in low position, locked and alarm is on.
--- NOTE | 2018-08-22 19:45 | NUR ---
HAND-OFF: Report given to Bernarda RIVERA.
--- NOTE | 2018-08-22 19:50 | NUR ---
NURSE NOTES: MD Dr. Rosado is notified of a elevated HR and low grade fever, order obtained for Tylenol 650 mg PO q6 hrs prn, order entered and carried out.
[2018-08-22 20:00] VITALS: BP 138/75
[2018-08-22] MEDS ORDERED: Epoetin Alfa-EPBX (NON ESRD)4000 units/ml vial SUBQ SCH (21:00)
[2018-08-23] VITALS (7 sets, daily range): BP systolic 116–143; BP diastolic 58–86
[2018-08-23] MEDS: NovoLOG Insulin Flexpen SUBQ SCH ×7 (06:28→21:26)
--- NOTE | 2018-08-23 06:50 | General Progress Note ---
Assessment/Plan Problem List: (1) DKA (diabetic ketoacidoses) ICD Codes: E13.10 - DKA (diabetic ketoacidoses) SNOMED: 95402471 Qualifiers: Qualified Codes: E10.10 - Type 1 diabetes mellitus with ketoacidosis without coma (2) CKD (chronic kidney disease), stage III ICD Codes: N18.3 - CKD (chronic kidney disease), stage III SNOMED: 532835170 (3) encephalopathy due to metabolic do (4) Pulmonary HTN ICD Codes: I27.0 - Pulmonary HTN SNOMED: 18494117 Assessment/Plan continue Levemir 9 units bid - do not hold without notifying me continue Novolog 4 units ac tid continue NISS ac / hs Subjective Allergies: Coded Allergies: CEFEPIME (Verified Allergy, Intermediate, Rash, 03/01/18) Tolerates Carbapenem All Systems: reviewed and negative except above Subjective events noted glycemic control improved Item Value Date Time Bedside Blood Glucose 140 mg/dl H 08/23/18 0628 Bedside Blood Glucose 130 mg/dl H 08/22/18 2214 Bedside Blood Glucose 247 mg/dl H 08/22/18 1755 Bedside Blood Glucose 389 mg/dl H 08/22/18 1315 Bedside Blood Glucose 219 mg/dl H 08/22/18 0947 Bedside Blood Glucose 271 mg/dl H 08/22/18 0522 Objective Last 24 Hour Vital Signs Date Time Temp Pulse Resp B/P (MAP) Pulse Ox O2 Delivery O2 Flow Rate FiO2 08/23/18 04:00 98.2 111 16 118/67 Room Air 08/23/18 01:07 98.1 104 18 116/58 Room Air 08/23/18 00:00 98.1 104 116/58 Room Air 08/22/18 22:15 100.6 08/22/18 22:13 Room Air 08/22/18 20:00 100.6 135 20 138/75 Room Air 08/22/18 16:00 97.2 115 20 152/114 99 Room Air 08/22/18 09:00 Room Air 08/22/18 08:00 98.7 100 20 98 Room Air Intake and Output 08/22/18 08/23/18 19:00 07:00 Intake Total 500 ml 950 ml Balance 500 ml 950 ml Intake Oral 500 ml IV Total 750 ml Other 200 ml Height (Feet): 6 Height (Inches): 0.00 Weight (Pounds): 148 General Appearance: no apparent distress Neck: normal alignment Cardiovascular: normal rate Respiratory/Chest: lungs clear Abdomen: normal bowel sounds Objective Current Medications Medications (Trade) Dose Ordered Sig/Dunia Route PRN Reason Start Time Stop Time Status Last Admin Dose Admin Acetaminophen (Tylenol) 650 mg Q6H PRN ORAL Mild Pain/Temp > 100.5 08/22/18 21:00 09/21/18 20:59 08/22/18 21:41 Clindamycin HCl/ Dextrose 50 ml @ 100 mls/hr Q8HR IV 08/22/18 18:30 08/29/18 18:29 08/23/18 06:11 Dextrose (Dextrose 50%) 25 ml Q30M PRN IV Hypoglycemia 08/11/18 14:30 09/10/18 14:29 08/16/18 17:03 Dextrose (Dextrose 50%) 50 ml Q30M PRN IV Hypoglycemia 08/11/18 14:30 09/10/18 14:29 08/18/18 21:17 Duloxetine HCl (Cymbalta) 60 mg DAILY ORAL 08/18/18 09:00 09/17/18 08:59 08/22/18 09:44 Epoetin Jose (Epoetin Jose-EPBX(NON ESRD)) 8,000 unit WED-WED-WED SUBQ 08/22/18 21:00 09/21/18 20:59 08/22/18 21:00 Heparin Sodium (Porcine) (Heparin 5000 units/ml) 5,000 units EVERY 12 HOURS SUBQ 08/11/18 21:00 08/28/18 08:59 08/22/18 21:00 Insulin Aspart (NovoLOG) BEFORE MEALS AND HS SUBQ 08/11/18 16:30 09/10/18 11:29 08/23/18 06:28 Insulin Aspart (NovoLOG) 4 units NOVOTIAC SUBQ 08/18/18 11:50 09/10/18 07:59 08/22/18 17:54 Insulin Detemir (Levemir) 9 units BID SUBQ 08/22/18 09:00 09/10/18 08:59 08/22/18 17:52 Pantoprazole (Protonix) 40 mg BIAC ORAL 08/11/18 16:30 09/10/18 16:29 08/22/18 17:51 Quetiapine Fumarate (SEROquel) 25 mg Q12HR ORAL 08/11/18 21:00 09/08/18 12:14 08/22/18 21:00 Quetiapine Fumarate (SEROquel) 25 mg Q6H PRN ORAL For Anxiety 08/11/18 14:30 08/31/18 14:29 Sevelamer Carbonate (Renvela) 800 mg THREE TIMES A DAY ORAL 08/13/18 09:00 09/12/18 08:59 08/22/18 17:51 Sodium Chloride 1,000 ml @ 75 mls/hr [id number] IV 08/11/18 14:30 09/09/18 14:29 08/23/18 06:11 Vitamin B Complex/ Vit C/Folic Acid (Nephrovite) 1 tab DAILY ORAL 08/12/18 09:00 08/29/18 08:59 08/22/18 09:45 Modesto Jacques MD Aug 23, 2018 06:50
--- NOTE | 2018-08-23 07:20 | NUR ---
HAND-OFF: Report given to Christa RIVERA.
[2018-08-23] MEDS: Nephrovite tab (Rena-Vite) ORAL SCH (08:57)
[2018-08-23] MEDS: DULoxetine 30mg cap ORAL SCH (08:57)
[2018-08-23] MEDS: Heparin 5000 units/ml inj SUBQ SCH ×2 (08:57→21:17)
[2018-08-23 09:59] LABS: HEMATOCRIT 34.1 % (42.0-52.0); HEMOGLOBIN 10.7 G/DL (14.2-18.0); MEAN CORPUSCULAR VOLUME 99 FL (80-99); PLATELET COUNT 363 K/UL (150-450); RED BLOOD COUNT 3.44 M/UL (4.70-6.10); RED CELL DISTRIBUTION WIDTH 18.6 % (11.6-14.8); WHITE BLOOD COUNT 14.5 K/UL (4.8-10.8)
[2018-08-23 10:14] LABS: ALANINE AMINOTRANSFERASE 9 U/L (12-78); ALBUMIN 2.2 G/DL (3.4-5.0); ALBUMIN/GLOBULIN RATIO 0.4 (1.0-2.7); ALKALINE PHOSPHATASE 86 U/L (46-116); ANION GAP 15 mmol/L (5-15); ASPARTATE AMINO TRANSFERASE 10 U/L (15-37); BILIRUBIN,TOTAL 0.4 MG/DL (0.2-1.0); BLOOD UREA NITROGEN 81 mg/dL (7-18); CALCIUM 8.9 MG/DL (8.5-10.1); CARBON DIOXIDE 12 MMOL/L (21-32); CHLORIDE 105 MMOL/L (98-107); CREATININE 7.8 MG/DL (0.55-1.30); SODIUM 133 MMOL/L (136-145)
[2018-08-23] MEDS: Levemir Flexpen SUBQ SCH ×2 (10:15→17:17)
--- NOTE | 2018-08-23 10:26 | NUR ---
NURSE NOTES: Dr. Read made aware of WBC level today. 14.5 [address] Frias office regarding k+ level, 6.0 today. awaiting response. patient alert , responsive. Denies discomfort at this time.
[2018-08-23] MEDS ORDERED: Sodium Polystyrene Sulfonate 15gm Powder ORAL SCH (11:00)
--- NOTE | 2018-08-23 11:04 | Urology Progress Note ---
Assessment/Plan Assessment/Plan 1. Urinary retention. 2. Neurogenic bladder. 3. History of chronic suprapubic tube. 4. BPH history. 5. History of end-stage renal disease. 6. Hematuria. 7. Pyuria. 8. Proteinuria. 9. Renal cysts. monitor clinically keep sp tube, last exchanged 2/5 hand irrigate PRN cath secured to pt's leg s/p abx recheck urine cx at some point HD if pt allows d/w nursing staff Subjective Allergies: Coded Allergies: CEFEPIME (Verified Allergy, Intermediate, Rash, 03/01/18) Tolerates Carbapenem Subjective all noted, new sp tube draining well, occasional leakage Objective Last 24 Hour Vital Signs Date Time Temp Pulse Resp B/P (MAP) Pulse Ox O2 Delivery O2 Flow Rate FiO2 08/23/18 09:00 Room Air 08/23/18 08:00 98.1 115 16 143/86 Room Air 08/23/18 04:00 98.2 111 16 118/67 Room Air 08/23/18 01:07 98.1 104 18 116/58 Room Air 08/23/18 00:00 98.1 104 116/58 Room Air 08/22/18 22:15 100.6 08/22/18 22:13 Room Air 08/22/18 20:00 100.6 135 20 138/75 Room Air 08/22/18 16:00 97.2 115 20 152/114 99 Room Air Intake and Output 08/22/18 08/23/18 19:00 07:00 Intake Total 500 ml 950 ml Balance 500 ml 950 ml Intake Oral 500 ml IV Total 750 ml Other 200 ml Microbiology Date/Time Source Procedure Growth Status 07/29/18 05:29 Blood Blood Culture - Final NO GROWTH AFTER 5 DAYS Complete 07/29/18 00:30 Nasal Nares MRSA Culture - Final Staphylococcus Aureus - Mrsa Complete 07/29/18 05:15 Urine,Clean Catch Urine Culture - Final Gram Positive Cocci Complete 07/29/18 00:30 Rectum VRE Culture - Final Enterococcus Faecalis - Vre Enterococcus Faecium - Vre Complete Current Medications Medications (Trade) Dose Ordered Sig/Dunia Route PRN Reason Start Time Stop Time Status Last Admin Dose Admin Acetaminophen (Tylenol) 650 mg Q6H PRN ORAL Mild Pain/Temp > 100.5 08/22/18 21:00 09/21/18 20:59 08/22/18 21:41 Clindamycin HCl/ Dextrose 50 ml @ 100 mls/hr Q8HR IV 08/22/18 18:30 08/29/18 18:29 08/23/18 06:11 Dextrose (Dextrose 50%) 25 ml Q30M PRN IV Hypoglycemia 08/11/18 14:30 09/10/18 14:29 08/16/18 17:03 Dextrose (Dextrose 50%) 50 ml Q30M PRN IV Hypoglycemia 08/11/18 14:30 09/10/18 14:29 08/18/18 21:17 Duloxetine HCl (Cymbalta) 60 mg DAILY ORAL 08/18/18 09:00 09/17/18 08:59 08/23/18 08:57 Epoetin Jose (Epoetin Jose-EPBX(NON ESRD)) 4,000 unit WED-WED-WED SUBQ 08/24/18 21:00 09/21/18 20:59 UNV Heparin Sodium (Porcine) (Heparin 5000 units/ml) 5,000 units EVERY 12 HOURS SUBQ 08/11/18 21:00 08/28/18 08:59 08/22/18 21:00 Insulin Aspart (NovoLOG) BEFORE MEALS AND HS SUBQ 08/11/18 16:30 09/10/18 11:29 08/23/18 06:28 Insulin Aspart (NovoLOG) 4 units NOVOTIAC SUBQ 08/18/18 11:50 09/10/18 07:59 08/23/18 06:50 Insulin Detemir (Levemir) 9 units BID SUBQ 08/22/18 09:00 09/10/18 08:59 08/23/18 10:15 Pantoprazole (Protonix) 40 mg BIAC ORAL 08/11/18 16:30 09/10/18 16:29 08/22/18 17:51 Quetiapine Fumarate (SEROquel) 25 mg Q12HR ORAL 08/11/18 21:00 09/08/18 12:14 08/23/18 08:56 Quetiapine Fumarate (SEROquel) 25 mg Q6H PRN ORAL For Anxiety 08/11/18 14:30 08/31/18 14:29 Sevelamer Carbonate (Renvela) 800 mg THREE TIMES A DAY ORAL 08/13/18 09:00 09/12/18 08:59 08/23/18 08:57 Sodium Bicarbonate 100 ml/Sodium Chloride 1,100 ml @ 75 mls/hr [id number] IV 08/23/18 11:00 09/22/18 10:59 UNV Sodium Polystyrene Sulfonate (Kayexalate) 45 gm ONCE ONCE ORAL 08/23/18 11:00 08/23/18 11:01 UNV Vitamin B Complex/ Vit C/Folic Acid (Nephrovite) 1 tab DAILY ORAL 08/12/18 09:00 08/29/18 08:59 08/23/18 08:57 Laboratory Tests 08/23/18 09:50: White Blood Count 14.5H, Red Blood Count 3.44L, Hemoglobin 10.7L, Hematocrit 34.1L, Mean Corpuscular Volume 99, Mean Corpuscular Hemoglobin 31.1H, Mean Corpuscular Hemoglobin Concent 31.3L, Red Cell Distribution Width 18.6H, Platelet Count 363, Mean Platelet Volume 5.2L, Neutrophils (%) (Auto) , Lymphocytes (%) (Auto) , Monocytes (%) (Auto) , Eosinophils (%) (Auto) , Basophils (%) (Auto) , Neutrophils % (Manual) [Pending], Lymphocytes % (Manual) [Pending], Platelet Estimate [Pending], Platelet Morphology [Pending], Sodium Level 133L, Potassium Level 6.0*H, Chloride Level 105, Carbon Dioxide Level 12L , Anion Gap 15, Blood Urea Nitrogen 81H, Creatinine 7.8H, Estimat Glomerular Filtration Rate 7.0, Glucose Level 201H, Calcium Level 8.9, Total Bilirubin 0.4 , Aspartate Amino Transf (AST/SGOT) 10L, Alanine Aminotransferase (ALT/SGPT) 9L , Alkaline Phosphatase 86, Total Protein 7.2, Albumin 2.2L, Globulin 5.0, Albumin/Globulin Ratio 0.4L Height (Feet): 6 Height (Inches): 0.00 Weight (Pounds): 148 Objective exam stable Ye Rios MD Aug 23, 2018 11:04
--- NOTE | 2018-08-23 11:06 | Nephrology Progress Note ---
Assessment/Plan Problem List: (1) Acute on chronic renal failure (2) Bladder outlet obstruction (3) Anemia in chronic kidney disease (4) BPH (benign prostatic hypertrophy) (5) DKA (diabetic ketoacidoses) (6) Encephalopathy acute Assessment High Glucose now improved ESRD , in need of dialysis , refuses- presents with high K Encephalopathy , Metabolic Acidosis , Uremic and Diabetic Sever Anemia: Mixed etiology HTn, but presents with low BP Supra Pubic Cath, h/o UTI, BPH Psych disease CAD, elevated Troponin I s/p DKAs Plan Kayexelate for high K as needed change IV with sodium bicarb Transfuse as needed Sugar control will do poorly in view of no dialysis plans DNR per orders DOES NOT AGREE TO DIALYSIS TREATMENT DC planning in process poor prognosis Subjective ROS Limited/Unobtainable: No Constitutional: Reports: malaise, weakness Objective Objective Last 24 Hour Vital Signs Date Time Temp Pulse Resp B/P (MAP) Pulse Ox O2 Delivery O2 Flow Rate FiO2 08/23/18 09:00 Room Air 08/23/18 08:00 98.1 115 16 143/86 Room Air 08/23/18 04:00 98.2 111 16 118/67 Room Air 08/23/18 01:07 98.1 104 18 116/58 Room Air 08/23/18 00:00 98.1 104 116/58 Room Air 08/22/18 22:15 100.6 08/22/18 22:13 Room Air 08/22/18 20:00 100.6 135 20 138/75 Room Air 08/22/18 16:00 97.2 115 20 152/114 99 Room Air Intake and Output 08/22/18 08/23/18 19:00 07:00 Intake Total 500 ml 950 ml Balance 500 ml 950 ml Intake Oral 500 ml IV Total 750 ml Other 200 ml Laboratory Tests 08/23/18 09:50: White Blood Count 14.5H, Red Blood Count 3.44L, Hemoglobin 10.7L, Hematocrit 34.1L, Mean Corpuscular Volume 99, Mean Corpuscular Hemoglobin 31.1H, Mean Corpuscular Hemoglobin Concent 31.3L, Red Cell Distribution Width 18.6H, Platelet Count 363, Mean Platelet Volume 5.2L, Neutrophils (%) (Auto) , Lymphocytes (%) (Auto) , Monocytes (%) (Auto) , Eosinophils (%) (Auto) , Basophils (%) (Auto) , Neutrophils % (Manual) [Pending], Lymphocytes % (Manual) [Pending], Platelet Estimate [Pending], Platelet Morphology [Pending], Sodium Level 133L, Potassium Level 6.0*H, Chloride Level 105, Carbon Dioxide Level 12L , Anion Gap 15, Blood Urea Nitrogen 81H, Creatinine 7.8H, Estimat Glomerular Filtration Rate 7.0, Glucose Level 201H, Calcium Level 8.9, Total Bilirubin 0.4 , Aspartate Amino Transf (AST/SGOT) 10L, Alanine Aminotransferase (ALT/SGPT) 9L , Alkaline Phosphatase 86, Total Protein 7.2, Albumin 2.2L, Globulin 5.0, Albumin/Globulin Ratio 0.4L Height (Feet): 6 Height (Inches): 0.00 Weight (Pounds): 148 General Appearance: no apparent distress Respiratory/Chest: decreased breath sounds Abdomen: distended Objective no change Luis Chambers MD Aug 23, 2018 11:06
[2018-08-23 11:18] LABS: PHOSPHORUS 5.4 MG/DL (2.5-4.9)
[2018-08-23] MEDS: Sodium Bicarbonate 100 ML in 1/2 NS 1000ml 1,000 ML IV SCH (12:03)
--- NOTE | 2018-08-23 12:32 | Pulmonology Progress Note ---
Assessment/Plan Problems: (1) Encephalopathy acute (2) DKA (diabetic ketoacidoses) (3) Anemia in chronic kidney disease (4) CKD (chronic kidney disease), stage III (5) Major depressive disorder (6) Bladder outlet obstruction (7) Suprapubic catheter Assessment/Plan no new complains doing better again creatinine lower eating better Bs better controlled all reviewed check electrolytes continue DNR dvt prophylaxis Subjective ROS Limited/Unobtainable: No Constitutional: Reports: no symptoms HEENT: Repors: no symptoms Respiratory: Reports: no symptoms Allergies: Coded Allergies: CEFEPIME (Verified Allergy, Intermediate, Rash, 03/01/18) Tolerates Carbapenem Objective Last 24 Hour Vital Signs Date Time Temp Pulse Resp B/P (MAP) Pulse Ox O2 Delivery O2 Flow Rate FiO2 08/23/18 09:00 Room Air 08/23/18 08:00 98.1 115 16 143/86 Room Air 08/23/18 04:00 98.2 111 16 118/67 Room Air 08/23/18 01:07 98.1 104 18 116/58 Room Air 08/23/18 00:00 98.1 104 116/58 Room Air 08/22/18 22:15 100.6 08/22/18 22:13 Room Air 08/22/18 20:00 100.6 135 20 138/75 Room Air 08/22/18 16:00 97.2 115 20 152/114 99 Room Air Intake and Output 08/22/18 08/23/18 19:00 07:00 Intake Total 500 ml 950 ml Balance 500 ml 950 ml Intake Oral 500 ml IV Total 750 ml Other 200 ml Objective General Appearance: WD/WN HEENT: normocephalic, atraumatic, anicteric Respiratory/Chest: chest wall non-tender, lungs clear Breasts: no masses Cardiovascular: normal peripheral pulses, normal rate Abdomen: normal bowel sounds, soft, non tender Extremities: no cyanosis Skin: no rash Neurologic/Psychiatric: 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 grossly normal Lymphatic: no neck adenopathy Laboratory Tests 08/23/18 09:50: White Blood Count 14.5H, Red Blood Count 3.44L, Hemoglobin 10.7L, Hematocrit 34.1L, Mean Corpuscular Volume 99, Mean Corpuscular Hemoglobin 31.1H, Mean Corpuscular Hemoglobin Concent 31.3L, Red Cell Distribution Width 18.6H, Platelet Count 363, Mean Platelet Volume 5.2L, Neutrophils (%) (Auto) , Lymphocytes (%) (Auto) , Monocytes (%) (Auto) , Eosinophils (%) (Auto) , Basophils (%) (Auto) , Differential Total Cells Counted 100, Neutrophils % ( Manual) 81H, Lymphocytes % (Manual) 5L, Monocytes % (Manual) 3, Eosinophils % ( Manual) 0, Basophils % (Manual) 1, Band Neutrophils 10H, Platelet Estimate Adequate, Platelet Morphology Normal, Polychromasia 1+, Hypochromasia 1+, Anisocytosis 2+, Sodium Level 133L, Potassium Level 6.0*H, Chloride Level 105, Carbon Dioxide Level 12L, Anion Gap 15, Blood Urea Nitrogen 81H, Creatinine 7.8H , Estimat Glomerular Filtration Rate 7.0, Glucose Level 201H, Uric Acid 8.5H, Calcium Level 8.9, Phosphorus Level 5.4H, Total Bilirubin 0.4, Aspartate Amino Transf (AST/SGOT) 10L, Alanine Aminotransferase (ALT/SGPT) 9L, Alkaline Phosphatase 86, Total Protein 7.2, Albumin 2.2L, Globulin 5.0, Albumin/Globulin Ratio 0.4L Current Medications Medications (Trade) Dose Ordered Sig/Dunia Route PRN Reason Start Time Stop Time Status Last Admin Dose Admin Acetaminophen (Tylenol) 650 mg Q6H PRN ORAL Mild Pain/Temp > 100.5 08/22/18 21:00 09/21/18 20:59 08/22/18 21:41 Clindamycin HCl/ Dextrose 50 ml @ 100 mls/hr Q8HR IV 08/22/18 18:30 08/29/18 18:29 08/23/18 06:11 Dextrose (Dextrose 50%) 25 ml Q30M PRN IV Hypoglycemia 08/11/18 14:30 09/10/18 14:29 08/16/18 17:03 Dextrose (Dextrose 50%) 50 ml Q30M PRN IV Hypoglycemia 08/11/18 14:30 09/10/18 14:29 08/18/18 21:17 Duloxetine HCl (Cymbalta) 60 mg DAILY ORAL 08/18/18 09:00 09/17/18 08:59 08/23/18 08:57 Epoetin Jose (Epoetin Jose-EPBX(NON ESRD)) 4,000 unit WED-WED-WED SUBQ 08/24/18 21:00 09/21/18 20:59 Heparin Sodium (Porcine) (Heparin 5000 units/ml) 5,000 units EVERY 12 HOURS SUBQ 08/11/18 21:00 08/28/18 08:59 08/22/18 21:00 Insulin Aspart (NovoLOG) BEFORE MEALS AND HS SUBQ 08/11/18 16:30 09/10/18 11:29 08/23/18 12:06 Insulin Aspart (NovoLOG) 4 units NOVOTIAC SUBQ 08/18/18 11:50 09/10/18 07:59 08/23/18 12:04 Insulin Detemir (Levemir) 9 units BID SUBQ 08/22/18 09:00 09/10/18 08:59 08/23/18 10:15 Pantoprazole (Protonix) 40 mg BIAC ORAL 08/11/18 16:30 09/10/18 16:29 08/22/18 17:51 Quetiapine Fumarate (SEROquel) 25 mg Q12HR ORAL 08/11/18 21:00 09/08/18 12:14 08/23/18 08:56 Quetiapine Fumarate (SEROquel) 25 mg Q6H PRN ORAL For Anxiety 08/11/18 14:30 08/31/18 14:29 Sevelamer Carbonate (Renvela) 800 mg THREE TIMES A DAY ORAL 08/13/18 09:00 09/12/18 08:59 08/23/18 08:57 Sodium Bicarbonate 100 ml/Sodium Chloride 1,100 ml @ 75 mls/hr [id number] IV 08/23/18 12:00 09/22/18 11:59 08/23/18 12:03 Vitamin B Complex/ Vit C/Folic Acid (Nephrovite) 1 tab DAILY ORAL 08/12/18 09:00 08/29/18 08:59 08/23/18 08:57 Esdras Delgado MD Aug 23, 2018 12:32
--- NOTE | 2018-08-23 13:27 | General Progress Note ---
Assessment/Plan Problem List: (1) encephalopathy due to metabolic do (2) Major depressive disorder ICD Codes: F32.9 - Major depressive disorder, single episode, unspecified SNOMED: 103316453 Assessment/Plan increase Cymbalta 60mg qam seroquel 25mg q6hr prn agitation seroquel 25mg po bid provided ro/st Subjective Neurologic/Psychiatric: Reports: anxiety, depressed, emotional problems Allergies: Coded Allergies: CEFEPIME (Verified Allergy, Intermediate, Rash, 03/01/18) Tolerates Carbapenem Objective Last 24 Hour Vital Signs Date Time Temp Pulse Resp B/P (MAP) Pulse Ox O2 Delivery O2 Flow Rate FiO2 08/23/18 09:00 Room Air 08/23/18 08:00 98.1 115 16 143/86 Room Air 08/23/18 04:00 98.2 111 16 118/67 Room Air 08/23/18 01:07 98.1 104 18 116/58 Room Air 08/23/18 00:00 98.1 104 116/58 Room Air 08/22/18 22:15 100.6 08/22/18 22:13 Room Air 08/22/18 20:00 100.6 135 20 138/75 Room Air 08/22/18 16:00 97.2 115 20 152/114 99 Room Air Intake and Output 08/22/18 08/23/18 18:59 06:59 Intake Total 500 ml 950 ml Balance 500 ml 950 ml Intake Oral 500 ml IV Total 750 ml Other 200 ml Laboratory Tests 08/23/18 09:50: White Blood Count 14.5H, Red Blood Count 3.44L, Hemoglobin 10.7L, Hematocrit 34.1L, Mean Corpuscular Volume 99, Mean Corpuscular Hemoglobin 31.1H, Mean Corpuscular Hemoglobin Concent 31.3L, Red Cell Distribution Width 18.6H, Platelet Count 363, Mean Platelet Volume 5.2L, Neutrophils (%) (Auto) , Lymphocytes (%) (Auto) , Monocytes (%) (Auto) , Eosinophils (%) (Auto) , Basophils (%) (Auto) , Differential Total Cells Counted 100, Neutrophils % ( Manual) 81H, Lymphocytes % (Manual) 5L, Monocytes % (Manual) 3, Eosinophils % ( Manual) 0, Basophils % (Manual) 1, Band Neutrophils 10H, Platelet Estimate Adequate, Platelet Morphology Normal, Polychromasia 1+, Hypochromasia 1+, Anisocytosis 2+, Sodium Level 133L, Potassium Level 6.0*H, Chloride Level 105, Carbon Dioxide Level 12L, Anion Gap 15, Blood Urea Nitrogen 81H, Creatinine 7.8H , Estimat Glomerular Filtration Rate 7.0, Glucose Level 201H, Uric Acid 8.5H, Calcium Level 8.9, Phosphorus Level 5.4H, Total Bilirubin 0.4, Aspartate Amino Transf (AST/SGOT) 10L, Alanine Aminotransferase (ALT/SGPT) 9L, Alkaline Phosphatase 86, Total Protein 7.2, Albumin 2.2L, Globulin 5.0, Albumin/Globulin Ratio 0.4L Height (Feet): 6 Height (Inches): 0.00 Weight (Pounds): 148 General Appearance: no apparent distress, alert Neurologic: responsive, depressed affect Fatmata Lu MD Aug 23, 2018 13:27
--- NOTE | 2018-08-23 16:20 | Infectious Diseases Prog Note ---
Assessment/Plan Assessment/Plan Right wrist IV site infection Severe sepsis - Resolved -likely 2ry to UTI- SP, s/p rx -u.a wbc tntc, nit neg, luek +3; ucx <10k GPC -Bcx Neg -CXR: Suspected atelectasis or scarring right Afebrile Leukocytosis, SP DKA RIVKA, improving hx of recent sepsis 2ry to UTI and bacteremia 07/08/18 UCx - P.a. MDR and Providencia 07/08/18 BCx ESBL Proteus and K. pneumo Dm2 HLD MDD with suicidal attempts in the past w/ resultant chronic encephalopathy CAD/IN BPH anemia asthma colonic polyps ESRD s/p renal and pancreas tx ~10 yrs ago now CKD 4 ConS bacteremia/line infection urinary retention s/p suprapubic catheter 09/2017 recurrent hematuria multiple hospital admissions recurrent UTI DNR Plan: -Continue Clindamycin #6/10-14 for infected IV site -08/02 SP Meropenem d# 5 07/29 SP one dose Amikacin -07/22 SP Meropenem, #14 - f/u cx -Monitor CBC/CMP, temperatures -Sx f/u -wound care Subjective Allergies: Coded Allergies: CEFEPIME (Verified Allergy, Intermediate, Rash, 03/01/18) Tolerates Carbapenem Subjective afebrile leukocytosis Objective Vital Signs Last 24 Hour Vital Signs Date Time Temp Pulse Resp B/P (MAP) Pulse Ox O2 Delivery O2 Flow Rate FiO2 08/23/18 09:00 Room Air 08/23/18 08:00 98.1 115 16 143/86 Room Air 08/23/18 04:00 98.2 111 16 118/67 Room Air 08/23/18 01:07 98.1 104 18 116/58 Room Air 08/23/18 00:00 98.1 104 116/58 Room Air 08/22/18 22:15 100.6 08/22/18 22:13 Room Air 08/22/18 20:00 100.6 135 20 138/75 Room Air Height (Feet): 6 Height (Inches): 0.00 Weight (Pounds): 148 Objective Status: awake HEENT: atraumatic Lungs: chest wall tender Heart: HR/BP stable Abdomen: soft, non-tender Extremities: no C/C/E Decubiti: location Laboratory Tests Test 08/23/18 09:50 White Blood Count 14.5 K/UL (4.8-10.8) H Red Blood Count 3.44 M/UL (4.70-6.10) L Hemoglobin 10.7 G/DL (14.2-18.0) L Hematocrit 34.1 % (42.0-52.0) L Mean Corpuscular Volume 99 FL (80-99) Mean Corpuscular Hemoglobin 31.1 PG (27.0-31.0) H Mean Corpuscular Hemoglobin Concent 31.3 G/DL (32.0-36.0) L Red Cell Distribution Width 18.6 % (11.6-14.8) H Platelet Count 363 K/UL (150-450) Mean Platelet Volume 5.2 FL (6.5-10.1) L Neutrophils (%) (Auto) % (45.0-75.0) Lymphocytes (%) (Auto) % (20.0-45.0) Monocytes (%) (Auto) % (1.0-10.0) Eosinophils (%) (Auto) % (0.0-3.0) Basophils (%) (Auto) % (0.0-2.0) Differential Total Cells Counted 100 Neutrophils % (Manual) 81 % (45-75) H Lymphocytes % (Manual) 5 % (20-45) L Monocytes % (Manual) 3 % (1-10) Eosinophils % (Manual) 0 % (0-3) Basophils % (Manual) 1 % (0-2) Band Neutrophils 10 % (0-8) H Platelet Estimate Adequate Platelet Morphology Normal Polychromasia 1+ Hypochromasia 1+ Anisocytosis 2+ Sodium Level 133 MMOL/L (136-145) L Potassium Level 6.0 MMOL/L (3.5-5.1) *H Chloride Level 105 MMOL/L (98-107) Carbon Dioxide Level 12 MMOL/L (21-32) L Anion Gap 15 mmol/L (5-15) Blood Urea Nitrogen 81 mg/dL (7-18) H Creatinine 7.8 MG/DL (0.55-1.30) H Estimat Glomerular Filtration Rate 7.0 mL/min (>60) Glucose Level 201 MG/DL (74-106) H Uric Acid 8.5 MG/DL (2.6-7.2) H Calcium Level 8.9 MG/DL (8.5-10.1) Phosphorus Level 5.4 MG/DL (2.5-4.9) H Total Bilirubin 0.4 MG/DL (0.2-1.0) Aspartate Amino Transf (AST/SGOT) 10 U/L (15-37) L Alanine Aminotransferase (ALT/SGPT) 9 U/L (12-78) L Alkaline Phosphatase 86 U/L (46-116) Total Protein 7.2 G/DL (6.4-8.2) Albumin 2.2 G/DL (3.4-5.0) L Globulin 5.0 g/dL Albumin/Globulin Ratio 0.4 (1.0-2.7) L Current Medications Medications (Trade) Dose Ordered Sig/Dunia Route PRN Reason Start Time Stop Time Status Last Admin Dose Admin Acetaminophen (Tylenol) 650 mg Q6H PRN ORAL Mild Pain/Temp > 100.5 08/22/18 21:00 09/21/18 20:59 08/22/18 21:41 Clindamycin HCl/ Dextrose 50 ml @ 100 mls/hr Q8HR IV 08/22/18 18:30 08/29/18 18:29 08/23/18 15:16 Dextrose (Dextrose 50%) 25 ml Q30M PRN IV Hypoglycemia 08/11/18 14:30 09/10/18 14:29 08/16/18 17:03 Dextrose (Dextrose 50%) 50 ml Q30M PRN IV Hypoglycemia 08/11/18 14:30 09/10/18 14:29 08/18/18 21:17 Duloxetine HCl (Cymbalta) 60 mg DAILY ORAL 08/18/18 09:00 09/17/18 08:59 08/23/18 08:57 Epoetin Jose (Epoetin Jose-EPBX(NON ESRD)) 4,000 unit WED-WED-WED SUBQ 08/24/18 21:00 09/21/18 20:59 Heparin Sodium (Porcine) (Heparin 5000 units/ml) 5,000 units EVERY 12 HOURS SUBQ 08/11/18 21:00 08/28/18 08:59 08/22/18 21:00 Insulin Aspart (NovoLOG) BEFORE MEALS AND HS SUBQ 08/11/18 16:30 09/10/18 11:29 08/23/18 12:06 Insulin Aspart (NovoLOG) 4 units NOVOTIAC SUBQ 08/18/18 11:50 09/10/18 07:59 08/23/18 12:04 Insulin Detemir (Levemir) 9 units BID SUBQ 08/22/18 09:00 09/10/18 08:59 08/23/18 10:15 Pantoprazole (Protonix) 40 mg BIAC ORAL 08/11/18 16:30 09/10/18 16:29 08/22/18 17:51 Quetiapine Fumarate (SEROquel) 25 mg Q12HR ORAL 08/11/18 21:00 09/08/18 12:14 08/23/18 08:56 Quetiapine Fumarate (SEROquel) 25 mg Q6H PRN ORAL For Anxiety 08/11/18 14:30 08/31/18 14:29 Sevelamer Carbonate (Renvela) 800 mg THREE TIMES A DAY ORAL 08/13/18 09:00 09/12/18 08:59 08/23/18 08:57 Sodium Bicarbonate 100 ml/Sodium Chloride 1,100 ml @ 75 mls/hr [id number] IV 08/23/18 12:00 09/22/18 11:59 08/23/18 12:03 Vitamin B Complex/ Vit C/Folic Acid (Nephrovite) 1 tab DAILY ORAL 08/12/18 09:00 08/29/18 08:59 08/23/18 08:57 Monique Read M.D. Aug 23, 2018 16:20
--- NOTE | 2018-08-23 17:06 | Internal Med Progress Note ---
Subjective Date of Service: Aug 23, 2018 Physician Name Jose Glasgow Attending Physician Christopher Rosado MD Current Medications Medications (Trade) Dose Ordered Sig/Dunia Route PRN Reason Start Time Stop Time Status Last Admin Dose Admin Acetaminophen (Tylenol) 650 mg Q6H PRN ORAL Mild Pain/Temp > 100.5 08/22/18 21:00 09/21/18 20:59 08/22/18 21:41 Clindamycin HCl/ Dextrose 50 ml @ 100 mls/hr Q8HR IV 08/22/18 18:30 08/29/18 18:29 08/23/18 15:16 Dextrose (Dextrose 50%) 25 ml Q30M PRN IV Hypoglycemia 08/11/18 14:30 09/10/18 14:29 08/16/18 17:03 Dextrose (Dextrose 50%) 50 ml Q30M PRN IV Hypoglycemia 08/11/18 14:30 09/10/18 14:29 08/18/18 21:17 Duloxetine HCl (Cymbalta) 60 mg DAILY ORAL 08/18/18 09:00 09/17/18 08:59 08/23/18 08:57 Epoetin Jose (Epoetin Jose-EPBX(NON ESRD)) 4,000 unit MON-WED-WED SUBQ 08/24/18 21:00 09/21/18 20:59 Heparin Sodium (Porcine) (Heparin 5000 units/ml) 5,000 units EVERY 12 HOURS SUBQ 08/11/18 21:00 08/28/18 08:59 08/22/18 21:00 Insulin Aspart (NovoLOG) BEFORE MEALS AND HS SUBQ 08/11/18 16:30 09/10/18 11:29 08/23/18 12:06 Insulin Aspart (NovoLOG) 4 units NOVOTIAC SUBQ 08/18/18 11:50 09/10/18 07:59 08/23/18 12:04 Insulin Detemir (Levemir) 9 units BID SUBQ 08/22/18 09:00 09/10/18 08:59 08/23/18 10:15 Pantoprazole (Protonix) 40 mg BIAC ORAL 08/11/18 16:30 09/10/18 16:29 08/22/18 17:51 Quetiapine Fumarate (SEROquel) 25 mg Q12HR ORAL 08/11/18 21:00 09/08/18 12:14 08/23/18 08:56 Quetiapine Fumarate (SEROquel) 25 mg Q6H PRN ORAL For Anxiety 08/11/18 14:30 08/31/18 14:29 Sevelamer Carbonate (Renvela) 800 mg THREE TIMES A DAY ORAL 08/13/18 09:00 09/12/18 08:59 08/23/18 08:57 Sodium Bicarbonate 100 ml/Sodium Chloride 1,100 ml @ 75 mls/hr [id number] IV 08/23/18 12:00 09/22/18 11:59 08/23/18 12:03 Vitamin B Complex/ Vit C/Folic Acid (Nephrovite) 1 tab DAILY ORAL 08/12/18 09:00 08/29/18 08:59 08/23/18 08:57 Allergies: Coded Allergies: CEFEPIME (Verified Allergy, Intermediate, Rash, 03/01/18) Tolerates Carbapenem ROS Limited/Unobtainable: No Constitutional: Reports: no symptoms HEENT: Reports: no symptoms Cardiovascular: Reports: no symptoms Respiratory: Reports: no symptoms Gastrointestinal/Abdominal: Reports: no symptoms Genitourinary: Reports: no symptoms Neurologic/Psychiatric: Reports: no symptoms Subjective 63 YO M with history of diabetes I admitted with hyperglycemia and DKA. Cover for Int Med-Dr Rosado. Await acceptance to [facility] Objective Last Vital Signs Date Time Temp Pulse Resp B/P (MAP) Pulse Ox O2 Delivery O2 Flow Rate FiO2 08/23/18 09:00 Room Air 08/23/18 08:00 98.1 115 16 143/86 08/22/18 16:00 99 08/19/18 09:34 21 Laboratory Tests Test 08/23/18 09:50 White Blood Count 14.5 K/UL (4.8-10.8) H Red Blood Count 3.44 M/UL (4.70-6.10) L Hemoglobin 10.7 G/DL (14.2-18.0) L Hematocrit 34.1 % (42.0-52.0) L Mean Corpuscular Volume 99 FL (80-99) Mean Corpuscular Hemoglobin 31.1 PG (27.0-31.0) H Mean Corpuscular Hemoglobin Concent 31.3 G/DL (32.0-36.0) L Red Cell Distribution Width 18.6 % (11.6-14.8) H Platelet Count 363 K/UL (150-450) Mean Platelet Volume 5.2 FL (6.5-10.1) L Neutrophils (%) (Auto) % (45.0-75.0) Lymphocytes (%) (Auto) % (20.0-45.0) Monocytes (%) (Auto) % (1.0-10.0) Eosinophils (%) (Auto) % (0.0-3.0) Basophils (%) (Auto) % (0.0-2.0) Differential Total Cells Counted 100 Neutrophils % (Manual) 81 % (45-75) H Lymphocytes % (Manual) 5 % (20-45) L Monocytes % (Manual) 3 % (1-10) Eosinophils % (Manual) 0 % (0-3) Basophils % (Manual) 1 % (0-2) Band Neutrophils 10 % (0-8) H Platelet Estimate Adequate Platelet Morphology Normal Polychromasia 1+ Hypochromasia 1+ Anisocytosis 2+ Sodium Level 133 MMOL/L (136-145) L Potassium Level 6.0 MMOL/L (3.5-5.1) *H Chloride Level 105 MMOL/L (98-107) Carbon Dioxide Level 12 MMOL/L (21-32) L Anion Gap 15 mmol/L (5-15) Blood Urea Nitrogen 81 mg/dL (7-18) H Creatinine 7.8 MG/DL (0.55-1.30) H Estimat Glomerular Filtration Rate 7.0 mL/min (>60) Glucose Level 201 MG/DL (74-106) H Uric Acid 8.5 MG/DL (2.6-7.2) H Calcium Level 8.9 MG/DL (8.5-10.1) Phosphorus Level 5.4 MG/DL (2.5-4.9) H Total Bilirubin 0.4 MG/DL (0.2-1.0) Aspartate Amino Transf (AST/SGOT) 10 U/L (15-37) L Alanine Aminotransferase (ALT/SGPT) 9 U/L (12-78) L Alkaline Phosphatase 86 U/L (46-116) Total Protein 7.2 G/DL (6.4-8.2) Albumin 2.2 G/DL (3.4-5.0) L Globulin 5.0 g/dL Albumin/Globulin Ratio 0.4 (1.0-2.7) L Intake and Output 08/22/18 08/23/18 18:59 06:59 Intake Total 500 ml 950 ml Balance 500 ml 950 ml Intake Oral 500 ml IV Total 750 ml Other 200 ml Objective GENERAL: The patient is awake and responsive but confused, in no acute distress. HEAD AND NECK: Pupils are equal and reactive to light. Extraocular movements are intact in the right eye. Left eye blindness, Neck was supple. No JVD. LUNGS: fair air entry. No wheezing or rales. HEART: S1 and S2. Distant heart sounds. No Murmur or gallops. ABDOMEN: Soft, nontender, and nontender. Suprapubic catheter was noted. EXTREMITIES: No cyanosis or clubbing. Bilateral lower extremity trace LE's edema. NEUROLOGIC: Cranial nerves II through XII grossly intact. Motor is 5/5 in all extremities. Gait was not assessed due to the patient's status. Assessment/Plan Assessment/Plan ASSESSMENT: 1. DKA. 2. Hypertension. 3. Dyslipidemia. 4. Diabetes type 1 with prior history of diabetic ketoacidosis. 5. Diabetic retinopathy of the left eye blindness. 6. End-stage renal disease secondary to diabetic nephrosclerosis. 7. Coronary artery disease with prior history of myocardial infarction. 8. 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 9. 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 10. Secondary hyperparathyroidism with vitamin D deficiency. 11. Anemia of chronic kidney disease. 12. Metabolic acidosis. 13. Depression with prior suicide attempt. 14. Acute encephalopathy due to toxic metabolic encephalopathy due to DKA. 15. Hyperkalemia PLAN: 1. Med/surg 2. Code status is DNR/DNI as per POLST in the chart. 3. Resume alf medications. 4. Follow up with Labs and culture. 5. Broad spectrum antibiotic with Meropenem. 6. DVT prophylaxis, heparin subcutaneous. 7. We will follow up with Dr. Delgado with critical care , Dr. Chambers from Nephrology and Dr. Rich Wick from Infectious Disease. 8. We will follow up with the cultures and laboratory in the morning. 9. Better control with Levemir and Insulin sliding scale per endocrinology; FSBG [phone] 10. Discharge planning: SNF when bed available. Jose Glasgow MD Aug 23, 2018 17:06
--- NOTE | 2018-08-23 18:45 | Surgery Progress Note ---
Surgery Progress Note Subjective Additional Comments no acute events. leukocytosis Objective Last 24 Hour Vital Signs Date Time Temp Pulse Resp B/P (MAP) Pulse Ox O2 Delivery O2 Flow Rate FiO2 08/23/18 16:00 98.4 102 16 120/70 Room Air 08/23/18 12:00 98.2 100 16 122/86 Room Air 08/23/18 09:00 Room Air 08/23/18 08:00 98.1 115 16 143/86 Room Air 08/23/18 04:00 98.2 111 16 118/67 Room Air 08/23/18 01:07 98.1 104 18 116/58 Room Air 08/23/18 00:00 98.1 104 116/58 Room Air 08/22/18 22:15 100.6 08/22/18 22:13 Room Air 08/22/18 20:00 100.6 135 20 138/75 Room Air I&O Intake and Output 08/22/18 08/23/18 19:00 07:00 Intake Total 500 ml 950 ml Balance 500 ml 950 ml Intake Oral 500 ml IV Total 750 ml Other 200 ml Dressing: saturated Wound: other Drains: other Cardiovascular: RSR Respiratory: clear Abdomen: soft, non-tender, present bowel sounds, non-distended Extremities: edema, tenderness, other Laboratory Tests Test 08/23/18 09:50 White Blood Count 14.5 K/UL (4.8-10.8) H Red Blood Count 3.44 M/UL (4.70-6.10) L Hemoglobin 10.7 G/DL (14.2-18.0) L Hematocrit 34.1 % (42.0-52.0) L Mean Corpuscular Volume 99 FL (80-99) Mean Corpuscular Hemoglobin 31.1 PG (27.0-31.0) H Mean Corpuscular Hemoglobin Concent 31.3 G/DL (32.0-36.0) L Red Cell Distribution Width 18.6 % (11.6-14.8) H Platelet Count 363 K/UL (150-450) Mean Platelet Volume 5.2 FL (6.5-10.1) L Neutrophils (%) (Auto) % (45.0-75.0) Lymphocytes (%) (Auto) % (20.0-45.0) Monocytes (%) (Auto) % (1.0-10.0) Eosinophils (%) (Auto) % (0.0-3.0) Basophils (%) (Auto) % (0.0-2.0) Differential Total Cells Counted 100 Neutrophils % (Manual) 81 % (45-75) H Lymphocytes % (Manual) 5 % (20-45) L Monocytes % (Manual) 3 % (1-10) Eosinophils % (Manual) 0 % (0-3) Basophils % (Manual) 1 % (0-2) Band Neutrophils 10 % (0-8) H Platelet Estimate Adequate Platelet Morphology Normal Polychromasia 1+ Hypochromasia 1+ Anisocytosis 2+ Sodium Level 133 MMOL/L (136-145) L Potassium Level 6.0 MMOL/L (3.5-5.1) *H Chloride Level 105 MMOL/L (98-107) Carbon Dioxide Level 12 MMOL/L (21-32) L Anion Gap 15 mmol/L (5-15) Blood Urea Nitrogen 81 mg/dL (7-18) H Creatinine 7.8 MG/DL (0.55-1.30) H Estimat Glomerular Filtration Rate 7.0 mL/min (>60) Glucose Level 201 MG/DL (74-106) H Uric Acid 8.5 MG/DL (2.6-7.2) H Calcium Level 8.9 MG/DL (8.5-10.1) Phosphorus Level 5.4 MG/DL (2.5-4.9) H Total Bilirubin 0.4 MG/DL (0.2-1.0) Aspartate Amino Transf (AST/SGOT) 10 U/L (15-37) L Alanine Aminotransferase (ALT/SGPT) 9 U/L (12-78) L Alkaline Phosphatase 86 U/L (46-116) Total Protein 7.2 G/DL (6.4-8.2) Albumin 2.2 G/DL (3.4-5.0) L Globulin 5.0 g/dL Albumin/Globulin Ratio 0.4 (1.0-2.7) L Plan Problems: (1) Cellulitis of right arm Assessment & Plan: cellulitis of right wrist after IV infiltrated open are that spontaneously drained prior no significant fluctuance noted ulcerated 3mm area with fibrinous debris at base no acute surgical intervention planned may develop into abscess that will need drainage later warm compress anti inflammatory gauze dressing and wrap daily thank you will follow with Jcarlos Kaba Aug 23, 2018 18:45
--- NOTE | 2018-08-23 19:16 | NUR ---
NURSE NOTES: Received patient in bed, awake, responsive to verbal and tactile stimuli, no acute distress at this time, bed is in low position, locked and alarm is on, call light is within reach. Will continue with POC.
--- NOTE | 2018-08-23 19:20 | NUR ---
HAND-OFF: Report given to NICOLE Menchaca.
[2018-08-24] VITALS: BP 131/70
[2018-08-24] MEDS: Sodium Bicarbonate 100 ML in 1/2 NS 1000ml 1,000 ML IV SCH ×2 (02:40→17:33)
[2018-08-24 04:00] VITALS: BP 134/80
[2018-08-24] MEDS: NovoLOG Insulin Flexpen SUBQ SCH ×7 (05:50→21:24)
--- NOTE | 2018-08-24 06:33 | General Progress Note ---
Assessment/Plan Problem List: (1) DKA (diabetic ketoacidoses) ICD Codes: E13.10 - DKA (diabetic ketoacidoses) SNOMED: 45218906 Qualifiers: Qualified Codes: E10.10 - Type 1 diabetes mellitus with ketoacidosis without coma (2) CKD (chronic kidney disease), stage III ICD Codes: N18.3 - CKD (chronic kidney disease), stage III SNOMED: 791419660 (3) encephalopathy due to metabolic do (4) Pulmonary HTN ICD Codes: I27.0 - Pulmonary HTN SNOMED: 00220158 Assessment/Plan continue Levemir 9 units bid - do not hold without notifying me continue Novolog 4 units ac tid continue NISS ac / hs Subjective Allergies: Coded Allergies: CEFEPIME (Verified Allergy, Intermediate, Rash, 03/01/18) Tolerates Carbapenem All Systems: reviewed and negative except above Subjective events noted Item Value Date Time Bedside Blood Glucose 116 mg/dl 08/24/18 0628 Bedside Blood Glucose Critically Low Result 08/23/18 2230 Bedside Blood Glucose 170 mg/dl H 08/23/18 1717 Bedside Blood Glucose 315 mg/dl H 08/23/18 1206 Bedside Blood Glucose 165 mg/dl H 08/23/18 1015 Bedside Blood Glucose 140 mg/dl H 08/23/18 0650 Objective Last 24 Hour Vital Signs Date Time Temp Pulse Resp B/P (MAP) Pulse Ox O2 Delivery O2 Flow Rate FiO2 08/24/18 04:00 98.0 78 17 134/80 Room Air 08/24/18 00:00 98.4 100 17 131/70 Room Air 08/23/18 22:26 Room Air 08/23/18 20:00 98.6 104 18 128/74 Room Air 08/23/18 16:00 98.4 102 16 120/70 Room Air 08/23/18 12:00 98.2 100 16 122/86 Room Air 08/23/18 09:00 Room Air 08/23/18 08:00 98.1 115 16 143/86 Room Air Intake and Output 08/23/18 08/24/18 19:00 07:00 Intake Total 480 ml 360 ml Output Total 1150 ml 850 ml Balance -670 ml -490 ml Intake Oral 480 ml 360 ml Output Urine Total 1150 ml 850 ml # Voids 1 Laboratory Tests 08/23/18 09:50: White Blood Count 14.5H, Red Blood Count 3.44L, Hemoglobin 10.7L, Hematocrit 34.1L, Mean Corpuscular Volume 99, Mean Corpuscular Hemoglobin 31.1H, Mean Corpuscular Hemoglobin Concent 31.3L, Red Cell Distribution Width 18.6H, Platelet Count 363, Mean Platelet Volume 5.2L, Neutrophils (%) (Auto) , Lymphocytes (%) (Auto) , Monocytes (%) (Auto) , Eosinophils (%) (Auto) , Basophils (%) (Auto) , Differential Total Cells Counted 100, Neutrophils % ( Manual) 81H, Lymphocytes % (Manual) 5L, Monocytes % (Manual) 3, Eosinophils % ( Manual) 0, Basophils % (Manual) 1, Band Neutrophils 10H, Platelet Estimate Adequate, Platelet Morphology Normal, Polychromasia 1+, Hypochromasia 1+, Anisocytosis 2+, Sodium Level 133L, Potassium Level 6.0*H, Chloride Level 105, Carbon Dioxide Level 12L, Anion Gap 15, Blood Urea Nitrogen 81H, Creatinine 7.8H , Estimat Glomerular Filtration Rate 7.0, Glucose Level 201H, Uric Acid 8.5H, Calcium Level 8.9, Phosphorus Level 5.4H, Total Bilirubin 0.4, Aspartate Amino Transf (AST/SGOT) 10L, Alanine Aminotransferase (ALT/SGPT) 9L, Alkaline Phosphatase 86, Total Protein 7.2, Albumin 2.2L, Globulin 5.0, Albumin/Globulin Ratio 0.4L Height (Feet): 6 Height (Inches): 0.00 Weight (Pounds): 148 General Appearance: no apparent distress Neck: normal alignment Cardiovascular: normal rate Respiratory/Chest: lungs clear Abdomen: normal bowel sounds Objective Current Medications Medications (Trade) Dose Ordered Sig/Dunia Route PRN Reason Start Time Stop Time Status Last Admin Dose Admin Acetaminophen (Tylenol) 650 mg Q6H PRN ORAL Mild Pain/Temp > 100.5 08/22/18 21:00 09/21/18 20:59 08/22/18 21:41 Clindamycin HCl/ Dextrose 50 ml @ 100 mls/hr Q8HR IV 08/22/18 18:30 08/29/18 18:29 08/24/18 05:55 Dextrose (Dextrose 50%) 25 ml Q30M PRN IV Hypoglycemia 08/11/18 14:30 09/10/18 14:29 08/16/18 17:03 Dextrose (Dextrose 50%) 50 ml Q30M PRN IV Hypoglycemia 08/11/18 14:30 09/10/18 14:29 08/18/18 21:17 Duloxetine HCl (Cymbalta) 60 mg DAILY ORAL 08/18/18 09:00 09/17/18 08:59 08/23/18 08:57 Epoetin Jose (Epoetin Jose-EPBX(NON ESRD)) 4,000 unit WED-WED-WED SUBQ 08/24/18 21:00 09/21/18 20:59 Heparin Sodium (Porcine) (Heparin 5000 units/ml) 5,000 units EVERY 12 HOURS SUBQ 08/11/18 21:00 08/28/18 08:59 08/23/18 21:17 Insulin Aspart (NovoLOG) BEFORE MEALS AND HS SUBQ 08/11/18 16:30 09/10/18 11:29 08/24/18 05:50 Insulin Aspart (NovoLOG) 4 units NOVOTIAC SUBQ 08/18/18 11:50 09/10/18 07:59 08/23/18 17:17 Insulin Detemir (Levemir) 9 units BID SUBQ 08/22/18 09:00 09/10/18 08:59 08/23/18 17:17 Pantoprazole (Protonix) 40 mg BIAC ORAL 08/11/18 16:30 09/10/18 16:29 08/23/18 17:15 Quetiapine Fumarate (SEROquel) 25 mg Q12HR ORAL 08/11/18 21:00 09/08/18 12:14 08/23/18 21:17 Quetiapine Fumarate (SEROquel) 25 mg Q6H PRN ORAL For Anxiety 08/11/18 14:30 08/31/18 14:29 Sevelamer Carbonate (Renvela) 800 mg THREE TIMES A DAY ORAL 08/13/18 09:00 09/12/18 08:59 08/23/18 17:15 Sodium Bicarbonate 100 ml/Sodium Chloride 1,100 ml @ 75 mls/hr [id number] IV 08/23/18 12:00 09/22/18 11:59 08/23/18 12:03 Vitamin B Complex/ Vit C/Folic Acid (Nephrovite) 1 tab DAILY ORAL 08/12/18 09:00 08/29/18 08:59 08/23/18 08:57 Modesto Jacques MD Aug 24, 2018 06:32
--- NOTE | 2018-08-24 07:01 | NUR ---
HAND-OFF: Report given to Obdulio RIVERA.
--- NOTE | 2018-08-24 07:45 | NUR ---
NURSE NOTES: Received patient from Bernarda RIVERA, patient is in bed, no distress no0ted, bed is locked and in lowest position, call light within reach, will continue to monitor, suprapubic catheter in place, RN called central supply to request new anchor for catheter.
[2018-08-24 08:00] VITALS: BP 145/87
--- NOTE | 2018-08-24 08:03 | Urology Progress Note ---
Assessment/Plan Assessment/Plan 1. Urinary retention. 2. Neurogenic bladder. 3. History of chronic suprapubic tube. 4. BPH history. 5. History of end-stage renal disease. 6. Hematuria. 7. Pyuria. 8. Proteinuria. 9. Renal cysts. monitor clinically keep sp tube, last exchanged 2/5 hand irrigated and do PRN cath secured to pt's leg s/p abx recheck urine cx at some point HD if pt allows d/w nursing staff Subjective Allergies: Coded Allergies: CEFEPIME (Verified Allergy, Intermediate, Rash, 03/01/18) Tolerates Carbapenem Subjective all noted, new sp tube draining well, occasional leakage Objective Last 24 Hour Vital Signs Date Time Temp Pulse Resp B/P (MAP) Pulse Ox O2 Delivery O2 Flow Rate FiO2 08/24/18 04:00 98.0 78 17 134/80 Room Air 08/24/18 00:00 98.4 100 17 131/70 Room Air 08/23/18 22:26 Room Air 08/23/18 20:00 98.6 104 18 128/74 Room Air 08/23/18 16:00 98.4 102 16 120/70 Room Air 08/23/18 12:00 98.2 100 16 122/86 Room Air 08/23/18 09:00 Room Air Intake and Output 08/23/18 08/24/18 19:00 07:00 Intake Total 480 ml 360 ml Output Total 1150 ml 850 ml Balance -670 ml -490 ml Intake Oral 480 ml 360 ml Output Urine Total 1150 ml 850 ml # Voids 1 Microbiology Date/Time Source Procedure Growth Status 07/29/18 05:29 Blood Blood Culture - Final NO GROWTH AFTER 5 DAYS Complete 07/29/18 00:30 Nasal Nares MRSA Culture - Final Staphylococcus Aureus - Mrsa Complete 07/29/18 05:15 Urine,Clean Catch Urine Culture - Final Gram Positive Cocci Complete 07/29/18 00:30 Rectum VRE Culture - Final Enterococcus Faecalis - Vre Enterococcus Faecium - Vre Complete Current Medications Medications (Trade) Dose Ordered Sig/Dunia Route PRN Reason Start Time Stop Time Status Last Admin Dose Admin Acetaminophen (Tylenol) 650 mg Q6H PRN ORAL Mild Pain/Temp > 100.5 08/22/18 21:00 09/21/18 20:59 08/22/18 21:41 Clindamycin HCl/ Dextrose 50 ml @ 100 mls/hr Q8HR IV 08/22/18 18:30 08/29/18 18:29 08/24/18 05:55 Dextrose (Dextrose 50%) 25 ml Q30M PRN IV Hypoglycemia 08/11/18 14:30 09/10/18 14:29 08/16/18 17:03 Dextrose (Dextrose 50%) 50 ml Q30M PRN IV Hypoglycemia 08/11/18 14:30 09/10/18 14:29 08/18/18 21:17 Duloxetine HCl (Cymbalta) 60 mg DAILY ORAL 08/18/18 09:00 09/17/18 08:59 08/23/18 08:57 Epoetin Jose (Epoetin Jose-EPBX(NON ESRD)) 4,000 unit WED- SUBQ 08/24/18 21:00 09/21/18 20:59 Heparin Sodium (Porcine) (Heparin 5000 units/ml) 5,000 units EVERY 12 HOURS SUBQ 08/11/18 21:00 08/28/18 08:59 08/23/18 21:17 Insulin Aspart (NovoLOG) BEFORE MEALS AND HS SUBQ 08/11/18 16:30 09/10/18 11:29 08/24/18 05:50 Insulin Aspart (NovoLOG) 4 units NOVOTIAC SUBQ 08/18/18 11:50 09/10/18 07:59 08/23/18 17:17 Insulin Detemir (Levemir) 9 units BID SUBQ 08/22/18 09:00 09/10/18 08:59 08/23/18 17:17 Pantoprazole (Protonix) 40 mg BIAC ORAL 08/11/18 16:30 09/10/18 16:29 08/23/18 17:15 Quetiapine Fumarate (SEROquel) 25 mg Q12HR ORAL 08/11/18 21:00 09/08/18 12:14 08/23/18 21:17 Quetiapine Fumarate (SEROquel) 25 mg Q6H PRN ORAL For Anxiety 08/11/18 14:30 08/31/18 14:29 Sevelamer Carbonate (Renvela) 800 mg THREE TIMES A DAY ORAL 08/13/18 09:00 09/12/18 08:59 08/23/18 17:15 Sodium Bicarbonate 100 ml/Sodium Chloride 1,100 ml @ 75 mls/hr [id number] IV 08/23/18 12:00 09/22/18 11:59 08/23/18 12:03 Vitamin B Complex/ Vit C/Folic Acid (Nephrovite) 1 tab DAILY ORAL 08/12/18 09:00 08/29/18 08:59 08/23/18 08:57 Laboratory Tests 08/23/18 09:50: White Blood Count 14.5H, Red Blood Count 3.44L, Hemoglobin 10.7L, Hematocrit 34.1L, Mean Corpuscular Volume 99, Mean Corpuscular Hemoglobin 31.1H, Mean Corpuscular Hemoglobin Concent 31.3L, Red Cell Distribution Width 18.6H, Platelet Count 363, Mean Platelet Volume 5.2L, Neutrophils (%) (Auto) , Lymphocytes (%) (Auto) , Monocytes (%) (Auto) , Eosinophils (%) (Auto) , Basophils (%) (Auto) , Differential Total Cells Counted 100, Neutrophils % ( Manual) 81H, Lymphocytes % (Manual) 5L, Monocytes % (Manual) 3, Eosinophils % ( Manual) 0, Basophils % (Manual) 1, Band Neutrophils 10H, Platelet Estimate Adequate, Platelet Morphology Normal, Polychromasia 1+, Hypochromasia 1+, Anisocytosis 2+, Sodium Level 133L, Potassium Level 6.0*H, Chloride Level 105, Carbon Dioxide Level 12L, Anion Gap 15, Blood Urea Nitrogen 81H, Creatinine 7.8H , Estimat Glomerular Filtration Rate 7.0, Glucose Level 201H, Uric Acid 8.5H, Calcium Level 8.9, Phosphorus Level 5.4H, Total Bilirubin 0.4, Aspartate Amino Transf (AST/SGOT) 10L, Alanine Aminotransferase (ALT/SGPT) 9L, Alkaline Phosphatase 86, Total Protein 7.2, Albumin 2.2L, Globulin 5.0, Albumin/Globulin Ratio 0.4L Height (Feet): 6 Height (Inches): 0.00 Weight (Pounds): 148 Objective exam stable Ye Rios MD Aug 24, 2018 08:03
[2018-08-24] MEDS: DULoxetine 30mg cap ORAL SCH (09:22)
[2018-08-24] MEDS: Nephrovite tab (Rena-Vite) ORAL SCH (09:23)
[2018-08-24] MEDS: Heparin 5000 units/ml inj SUBQ SCH ×2 (09:24→21:22)
[2018-08-24] MEDS: Levemir Flexpen SUBQ SCH ×2 (09:25→17:40)
--- NOTE | 2018-08-24 11:27 | Internal Med Progress Note ---
Subjective Date of Service: Aug 24, 2018 Physician Name GlasgowJose Attending Physician Christopher Rosado MD Current Medications Medications (Trade) Dose Ordered Sig/Dunia Route PRN Reason Start Time Stop Time Status Last Admin Dose Admin Acetaminophen (Tylenol) 650 mg Q6H PRN ORAL Mild Pain/Temp > 100.5 08/22/18 21:00 09/21/18 20:59 08/22/18 21:41 Clindamycin HCl/ Dextrose 50 ml @ 100 mls/hr Q8HR IV 08/22/18 18:30 08/29/18 18:29 08/24/18 05:55 Dextrose (Dextrose 50%) 25 ml Q30M PRN IV Hypoglycemia 08/11/18 14:30 09/10/18 14:29 08/16/18 17:03 Dextrose (Dextrose 50%) 50 ml Q30M PRN IV Hypoglycemia 08/11/18 14:30 09/10/18 14:29 08/18/18 21:17 Duloxetine HCl (Cymbalta) 60 mg DAILY ORAL 08/18/18 09:00 09/17/18 08:59 08/24/18 09:22 Epoetin Jose (Epoetin Jose-EPBX(NON ESRD)) 4,000 unit MON-WED-WED SUBQ 08/24/18 21:00 09/21/18 20:59 Heparin Sodium (Porcine) (Heparin 5000 units/ml) 5,000 units EVERY 12 HOURS SUBQ 08/11/18 21:00 08/28/18 08:59 08/24/18 09:24 Insulin Aspart (NovoLOG) BEFORE MEALS AND HS SUBQ 08/11/18 16:30 09/10/18 11:29 08/24/18 05:50 Insulin Aspart (NovoLOG) 4 units NOVOTIAC SUBQ 08/18/18 11:50 09/10/18 07:59 08/23/18 17:17 Insulin Detemir (Levemir) 9 units BID SUBQ 08/22/18 09:00 09/10/18 08:59 08/24/18 09:25 Pantoprazole (Protonix) 40 mg BIAC ORAL 08/11/18 16:30 09/10/18 16:29 08/23/18 17:15 Quetiapine Fumarate (SEROquel) 25 mg Q12HR ORAL 08/11/18 21:00 09/08/18 12:14 08/24/18 09:23 Quetiapine Fumarate (SEROquel) 25 mg Q6H PRN ORAL For Anxiety 08/11/18 14:30 08/31/18 14:29 Sevelamer Carbonate (Renvela) 800 mg THREE TIMES A DAY ORAL 08/13/18 09:00 09/12/18 08:59 08/24/18 09:23 Sodium Bicarbonate 100 ml/Sodium Chloride 1,100 ml @ 75 mls/hr [id number] IV 08/23/18 12:00 09/22/18 11:59 08/23/18 12:03 Vitamin B Complex/ Vit C/Folic Acid (Nephrovite) 1 tab DAILY ORAL 08/12/18 09:00 08/29/18 08:59 08/24/18 09:23 Allergies: Coded Allergies: CEFEPIME (Verified Allergy, Intermediate, Rash, 03/01/18) Tolerates Carbapenem ROS Limited/Unobtainable: No Constitutional: Reports: no symptoms HEENT: Reports: no symptoms Cardiovascular: Reports: no symptoms Respiratory: Reports: no symptoms Gastrointestinal/Abdominal: Reports: no symptoms Genitourinary: Reports: no symptoms Neurologic/Psychiatric: Reports: no symptoms Subjective 63 YO M with history of diabetes I admitted with hyperglycemia and DKA. Cover for Int Med-Dr Rosado. Await acceptance to [facility] Objective Last Vital Signs Date Time Temp Pulse Resp B/P (MAP) Pulse Ox O2 Delivery O2 Flow Rate FiO2 08/24/18 08:00 Room Air 08/24/18 08:00 101.0 102 19 145/87 08/22/18 16:00 99 08/19/18 09:34 21 Intake and Output 08/23/18 08/24/18 19:00 07:00 Intake Total 480 ml 360 ml Output Total 1150 ml 850 ml Balance -670 ml -490 ml Intake Oral 480 ml 360 ml Output Urine Total 1150 ml 850 ml # Voids 1 Objective GENERAL: The patient is awake and responsive but confused, in no acute distress. HEAD AND NECK: Pupils are equal and reactive to light. Extraocular movements are intact in the right eye. Left eye blindness, Neck was supple. No JVD. LUNGS: fair air entry. No wheezing or rales. HEART: S1 and S2. Distant heart sounds. No Murmur or gallops. ABDOMEN: Soft, nontender, and nontender. Suprapubic catheter was noted. EXTREMITIES: No cyanosis or clubbing. Bilateral lower extremity trace LE's edema. NEUROLOGIC: Cranial nerves II through XII grossly intact. Motor is 5/5 in all extremities. Gait was not assessed due to the patient's status. Assessment/Plan Assessment/Plan ASSESSMENT: 1. DKA. 2. Hypertension. 3. Dyslipidemia. 4. Diabetes type 1 with prior history of diabetic ketoacidosis. 5. Diabetic retinopathy of the left eye blindness. 6. End-stage renal disease secondary to diabetic nephrosclerosis. 7. Coronary artery disease with prior history of myocardial infarction. 8. 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 9. 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 10. Secondary hyperparathyroidism with vitamin D deficiency. 11. Anemia of chronic kidney disease. 12. Metabolic acidosis. 13. Depression with prior suicide attempt. 14. Acute encephalopathy due to toxic metabolic encephalopathy due to DKA. 15. Hyperkalemia PLAN: 1. Med/surg 2. Code status is DNR/DNI as per POLST in the chart. 3. Resume usp medications. 4. Follow up with Labs and culture. 5. Broad spectrum antibiotic with Meropenem. 6. DVT prophylaxis, heparin subcutaneous. 7. We will follow up with Dr. Delgado with critical care , Dr. Chambers from Nephrology and Dr. Rich Wick from Infectious Disease. 8. We will follow up with the cultures and laboratory in the morning. 9. Better control with Levemir and Insulin sliding scale per endocrinology; FSBG [phone] 10. Discharge planning: SNF when bed available-D/W case management Jose Glasgow MD Aug 24, 2018 11:27
--- NOTE | 2018-08-24 11:47 | NUR ---
*-* DISCAHRGE PLANNING *-* PATIENT HAS BEEN REFERRED TO: [facility] P:[phone] F:[phone]
[2018-08-24 12:00] VITALS: BP 120/68
[2018-08-24 12:19] LABS: HEMATOCRIT 29.1 % (42.0-52.0); HEMOGLOBIN 9.2 G/DL (14.2-18.0); MEAN CORPUSCULAR VOLUME 99 FL (80-99); PLATELET COUNT 320 K/UL (150-450); RED BLOOD COUNT 2.94 M/UL (4.70-6.10); RED CELL DISTRIBUTION WIDTH 17.9 % (11.6-14.8); WHITE BLOOD COUNT 14.9 K/UL (4.8-10.8)
--- NOTE | 2018-08-24 12:34 | General Progress Note ---
Assessment/Plan Problem List: (1) encephalopathy due to metabolic do (2) Major depressive disorder ICD Codes: F32.9 - Major depressive disorder, single episode, unspecified SNOMED: [id number] Status: stable, progressing Assessment/Plan increase Cymbalta 60mg qam Seroquel 25mg q6hr prn agitation Seroquel 50mg po bid provided ro/st Subjective Neurologic/Psychiatric: Reports: anxiety, depressed, emotional problems Allergies: Coded Allergies: CEFEPIME (Verified Allergy, Intermediate, Rash, 03/01/18) Tolerates Carbapenem Subjective the pt is more depressed and withdrawn. Objective Last 24 Hour Vital Signs Date Time Temp Pulse Resp B/P (MAP) Pulse Ox O2 Delivery O2 Flow Rate FiO2 08/24/18 08:00 Room Air 08/24/18 08:00 101.0 102 19 145/87 Room Air 08/24/18 04:00 98.0 78 17 134/80 Room Air 08/24/18 00:00 98.4 100 17 131/70 Room Air 08/23/18 22:26 Room Air 08/23/18 20:00 98.6 104 18 128/74 Room Air 08/23/18 16:00 98.4 102 16 120/70 Room Air Intake and Output 08/23/18 08/24/18 19:00 07:00 Intake Total 480 ml 360 ml Output Total 1150 ml 850 ml Balance -670 ml -490 ml Intake Oral 480 ml 360 ml Output Urine Total 1150 ml 850 ml # Voids 1 Laboratory Tests 08/24/18 12:00: White Blood Count 14.9H, Red Blood Count 2.94L, Hemoglobin 9.2L, Hematocrit 29.1L, Mean Corpuscular Volume 99, Mean Corpuscular Hemoglobin 31.2H, Mean Corpuscular Hemoglobin Concent 31.5L, Red Cell Distribution Width 17.9H, Platelet Count 320, Mean Platelet Volume 5.0L, Neutrophils (%) (Auto) , Lymphocytes (%) (Auto) , Monocytes (%) (Auto) , Eosinophils (%) (Auto) , Basophils (%) (Auto) , Neutrophils % (Manual) [Pending], Lymphocytes % (Manual) [Pending], Platelet Estimate [Pending], Platelet Morphology [Pending], Sodium Level [Pending], Potassium Level [Pending], Chloride Level [Pending], Carbon Dioxide Level [Pending], Blood Urea Nitrogen [Pending], Creatinine [Pending], Estimat Glomerular Filtration Rate [Pending], Glucose Level [Pending], Calcium Level [Pending] Height (Feet): 6 Height (Inches): 0.00 Weight (Pounds): 148 General Appearance: no apparent distress, alert Neurologic: oriented x 3, responsive, depressed affect Fatmata Lu MD Aug 24, 2018 12:34
[2018-08-24 12:35] LABS: ANION GAP 17 mmol/L (5-15); BLOOD UREA NITROGEN 87 mg/dL (7-18); CALCIUM 8.5 MG/DL (8.5-10.1); CARBON DIOXIDE 13 MMOL/L (21-32); CHLORIDE 105 MMOL/L (98-107); CREATININE 7.7 MG/DL (0.55-1.30); POTASSIUM 5.3 MMOL/L (3.5-5.1); SODIUM 135 MMOL/L (136-145)
--- NOTE | 2018-08-24 12:37 | Nephrology Progress Note ---
Assessment/Plan Problem List: (1) Acute on chronic renal failure (2) Bladder outlet obstruction (3) Anemia in chronic kidney disease (4) BPH (benign prostatic hypertrophy) (5) DKA (diabetic ketoacidoses) (6) Encephalopathy acute Assessment High Glucose now improved ESRD , in need of dialysis , refuses- presents with high K Encephalopathy , Metabolic Acidosis , Uremic and Diabetic Sever Anemia: Mixed etiology HTn, but presents with low BP Supra Pubic Cath, h/o UTI, BPH Psych disease CAD, elevated Troponin I s/p DKAs Plan today's lab pending IV with Na Bicarb Kayexelate for high K as needed change IV with sodium bicarb Transfuse as needed Sugar control will do poorly in view of no dialysis plans DNR per orders DOES NOT AGREE TO DIALYSIS TREATMENT DC planning in process poor prognosis Subjective ROS Limited/Unobtainable: No Constitutional: Reports: malaise Objective Objective Last 24 Hour Vital Signs Date Time Temp Pulse Resp B/P (MAP) Pulse Ox O2 Delivery O2 Flow Rate FiO2 08/24/18 08:00 Room Air 08/24/18 08:00 101.0 102 19 145/87 Room Air 08/24/18 04:00 98.0 78 17 134/80 Room Air 08/24/18 00:00 98.4 100 17 131/70 Room Air 08/23/18 22:26 Room Air 08/23/18 20:00 98.6 104 18 128/74 Room Air 08/23/18 16:00 98.4 102 16 120/70 Room Air Intake and Output 08/23/18 08/24/18 19:00 07:00 Intake Total 480 ml 360 ml Output Total 1150 ml 850 ml Balance -670 ml -490 ml Intake Oral 480 ml 360 ml Output Urine Total 1150 ml 850 ml # Voids 1 Laboratory Tests 08/24/18 12:00: White Blood Count 14.9H, Red Blood Count 2.94L, Hemoglobin 9.2L, Hematocrit 29.1L, Mean Corpuscular Volume 99, Mean Corpuscular Hemoglobin 31.2H, Mean Corpuscular Hemoglobin Concent 31.5L, Red Cell Distribution Width 17.9H, Platelet Count 320, Mean Platelet Volume 5.0L, Neutrophils (%) (Auto) , Lymphocytes (%) (Auto) , Monocytes (%) (Auto) , Eosinophils (%) (Auto) , Basophils (%) (Auto) , Neutrophils % (Manual) [Pending], Lymphocytes % (Manual) [Pending], Platelet Estimate [Pending], Platelet Morphology [Pending], Sodium Level [Pending], Potassium Level [Pending], Chloride Level [Pending], Carbon Dioxide Level [Pending], Blood Urea Nitrogen [Pending], Creatinine [Pending], Estimat Glomerular Filtration Rate [Pending], Glucose Level [Pending], Calcium Level [Pending] Height (Feet): 6 Height (Inches): 0.00 Weight (Pounds): 148 General Appearance: no apparent distress Cardiovascular: tachycardia Respiratory/Chest: decreased breath sounds Abdomen: soft, distended Objective no change Luis Chambers MD Aug 24, 2018 12:37
--- NOTE | 2018-08-24 13:17 | Surgery Progress Note ---
Surgery Progress Note Subjective Additional Comments no acute events. improving. wound improving Objective Last 24 Hour Vital Signs Date Time Temp Pulse Resp B/P (MAP) Pulse Ox O2 Delivery O2 Flow Rate FiO2 08/24/18 12:00 101.5 108 20 120/68 Room Air 08/24/18 08:00 Room Air 08/24/18 08:00 101.0 102 19 145/87 Room Air 08/24/18 04:00 98.0 78 17 134/80 Room Air 08/24/18 00:00 98.4 100 17 131/70 Room Air 08/23/18 22:26 Room Air 08/23/18 20:00 98.6 104 18 128/74 Room Air 08/23/18 16:00 98.4 102 16 120/70 Room Air I&O Intake and Output 08/23/18 08/24/18 19:00 07:00 Intake Total 480 ml 360 ml Output Total 1150 ml 850 ml Balance -670 ml -490 ml Intake Oral 480 ml 360 ml Output Urine Total 1150 ml 850 ml # Voids 1 Dressing: dry Wound: clean Drains: none Cardiovascular: RSR Respiratory: clear Abdomen: soft, non-tender, non-distended Extremities: other - cellulitis much improved Laboratory Tests Test 08/24/18 12:00 White Blood Count 14.9 K/UL (4.8-10.8) H Red Blood Count 2.94 M/UL (4.70-6.10) L Hemoglobin 9.2 G/DL (14.2-18.0) L Hematocrit 29.1 % (42.0-52.0) L Mean Corpuscular Volume 99 FL (80-99) Mean Corpuscular Hemoglobin 31.2 PG (27.0-31.0) H Mean Corpuscular Hemoglobin Concent 31.5 G/DL (32.0-36.0) L Red Cell Distribution Width 17.9 % (11.6-14.8) H Platelet Count 320 K/UL (150-450) Mean Platelet Volume 5.0 FL (6.5-10.1) L Neutrophils (%) (Auto) % (45.0-75.0) Lymphocytes (%) (Auto) % (20.0-45.0) Monocytes (%) (Auto) % (1.0-10.0) Eosinophils (%) (Auto) % (0.0-3.0) Basophils (%) (Auto) % (0.0-2.0) Differential Total Cells Counted 100 Neutrophils % (Manual) 91 % (45-75) H Lymphocytes % (Manual) 3 % (20-45) L Monocytes % (Manual) 4 % (1-10) Eosinophils % (Manual) 0 % (0-3) Basophils % (Manual) 0 % (0-2) Band Neutrophils 2 % (0-8) Platelet Estimate Adequate Platelet Morphology Normal Polychromasia 1+ Hypochromasia 1+ Anisocytosis 1+ Sodium Level 135 MMOL/L (136-145) L Potassium Level 5.3 MMOL/L (3.5-5.1) H Chloride Level 105 MMOL/L (98-107) Carbon Dioxide Level 13 MMOL/L (21-32) L Anion Gap 17 mmol/L (5-15) H Blood Urea Nitrogen 87 mg/dL (7-18) H Creatinine 7.7 MG/DL (0.55-1.30) H Estimat Glomerular Filtration Rate 7.1 mL/min (>60) Glucose Level 303 MG/DL (74-106) #H Calcium Level 8.5 MG/DL (8.5-10.1) Plan Problems: (1) Cellulitis of right arm Assessment & Plan: cellulitis of right wrist after IV infiltrated open are that spontaneously drained prior no significant fluctuance noted ulcerated 3mm area with fibrinous debris at base improving without issues okay to keep open to air now that no longer draining no acute surgical intervention planned thank you will follow with Jcarlos Kaba Aug 24, 2018 13:17
--- NOTE | 2018-08-24 13:37 | Pulmonology Progress Note ---
Assessment/Plan Problems: (1) Encephalopathy acute (2) DKA (diabetic ketoacidoses) (3) Anemia in chronic kidney disease (4) CKD (chronic kidney disease), stage III (5) Major depressive disorder (6) Bladder outlet obstruction (7) Suprapubic catheter Assessment/Plan no new complains doing better again creatinine lower eating better Bs better controlled all reviewed check electrolytes continue DNR dvt prophylaxis Subjective ROS Limited/Unobtainable: No Constitutional: Reports: no symptoms HEENT: Repors: no symptoms Respiratory: Reports: no symptoms Allergies: Coded Allergies: CEFEPIME (Verified Allergy, Intermediate, Rash, 03/01/18) Tolerates Carbapenem Objective Last 24 Hour Vital Signs Date Time Temp Pulse Resp B/P (MAP) Pulse Ox O2 Delivery O2 Flow Rate FiO2 08/24/18 12:00 101.5 108 20 120/68 Room Air 08/24/18 08:00 Room Air 08/24/18 08:00 101.0 102 19 145/87 Room Air 08/24/18 04:00 98.0 78 17 134/80 Room Air 08/24/18 00:00 98.4 100 17 131/70 Room Air 08/23/18 22:26 Room Air 08/23/18 20:00 98.6 104 18 128/74 Room Air 08/23/18 16:00 98.4 102 16 120/70 Room Air Intake and Output 08/23/18 08/24/18 18:59 06:59 Intake Total 480 ml 360 ml Output Total 1150 ml 850 ml Balance -670 ml -490 ml Intake Oral 480 ml 360 ml Output Urine Total 1150 ml 850 ml # Voids 1 Objective General Appearance: WD/WN HEENT: normocephalic, atraumatic, anicteric Respiratory/Chest: chest wall non-tender, lungs clear Breasts: no masses Cardiovascular: normal peripheral pulses, normal rate Abdomen: normal bowel sounds, soft, non tender Extremities: no cyanosis Skin: no rash 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 Lymphatic: no neck adenopathy Laboratory Tests 08/24/18 12:00: White Blood Count 14.9H, Red Blood Count 2.94L, Hemoglobin 9.2L, Hematocrit 29.1L, Mean Corpuscular Volume 99, Mean Corpuscular Hemoglobin 31.2H, Mean Corpuscular Hemoglobin Concent 31.5L, Red Cell Distribution Width 17.9H, Platelet Count 320, Mean Platelet Volume 5.0L, Neutrophils (%) (Auto) , Lymphocytes (%) (Auto) , Monocytes (%) (Auto) , Eosinophils (%) (Auto) , Basophils (%) (Auto) , Differential Total Cells Counted 100, Neutrophils % ( Manual) 91H, Lymphocytes % (Manual) 3L, Monocytes % (Manual) 4, Eosinophils % ( Manual) 0, Basophils % (Manual) 0, Band Neutrophils 2, Platelet Estimate Adequate, Platelet Morphology Normal, Polychromasia 1+, Hypochromasia 1+, Anisocytosis 1+, Sodium Level 135L, Potassium Level 5.3H, Chloride Level 105, Carbon Dioxide Level 13L, Anion Gap 17H, Blood Urea Nitrogen 87H, Creatinine 7.7H, Estimat Glomerular Filtration Rate 7.1, Glucose Level 303#H, Calcium Level 8.5 Current Medications Medications (Trade) Dose Ordered Sig/Dunia Route PRN Reason Start Time Stop Time Status Last Admin Dose Admin Acetaminophen (Tylenol) 650 mg Q6H PRN ORAL Mild Pain/Temp > 100.5 08/22/18 21:00 09/21/18 20:59 08/24/18 13:32 Clindamycin HCl/ Dextrose 50 ml @ 100 mls/hr Q8HR IV 08/22/18 18:30 08/29/18 18:29 08/24/18 05:55 Dextrose (Dextrose 50%) 25 ml Q30M PRN IV Hypoglycemia 08/11/18 14:30 09/10/18 14:29 08/16/18 17:03 Dextrose (Dextrose 50%) 50 ml Q30M PRN IV Hypoglycemia 08/11/18 14:30 09/10/18 14:29 08/18/18 21:17 Duloxetine HCl (Cymbalta) 60 mg DAILY ORAL 08/18/18 09:00 09/17/18 08:59 08/24/18 09:22 Epoetin Jose (Epoetin Jose-EPBX(NON ESRD)) 4,000 unit WED-WED-WED SUBQ 08/24/18 21:00 09/21/18 20:59 Heparin Sodium (Porcine) (Heparin 5000 units/ml) 5,000 units EVERY 12 HOURS SUBQ 08/11/18 21:00 08/28/18 08:59 08/24/18 09:24 Insulin Aspart (NovoLOG) BEFORE MEALS AND HS SUBQ 08/11/18 16:30 09/10/18 11:29 08/24/18 05:50 Insulin Aspart (NovoLOG) 4 units NOVOTIAC SUBQ 08/18/18 11:50 09/10/18 07:59 08/23/18 17:17 Insulin Detemir (Levemir) 9 units BID SUBQ 08/22/18 09:00 09/10/18 08:59 08/24/18 09:25 Pantoprazole (Protonix) 40 mg BIAC ORAL 08/11/18 16:30 09/10/18 16:29 08/23/18 17:15 Quetiapine Fumarate (SEROquel) 25 mg Q6H PRN ORAL For Anxiety 08/11/18 14:30 08/31/18 14:29 Quetiapine Fumarate (SEROquel) 50 mg Q12HR ORAL 08/24/18 21:00 09/23/18 20:59 Sevelamer Carbonate (Renvela) 800 mg THREE TIMES A DAY ORAL 08/13/18 09:00 09/12/18 08:59 08/24/18 13:00 Sodium Bicarbonate 100 ml/Sodium Chloride 1,100 ml @ 75 mls/hr [id number] IV 08/23/18 12:00 09/22/18 11:59 08/23/18 12:03 Vitamin B Complex/ Vit C/Folic Acid (Nephrovite) 1 tab DAILY ORAL 08/12/18 09:00 08/29/18 08:59 08/24/18 09:23 Esdras Delgado MD Aug 24, 2018 13:37
[2018-08-24 16:00] VITALS: BP 110/52
--- NOTE | 2018-08-24 17:04 | Infectious Diseases Prog Note ---
Assessment/Plan Assessment/Plan Right wrist IV site infection; improving Sepsis - Recurrent- r/o bacteremia, PNA, UTI UTI- SP, s/p rx -u.a wbc tntc, nit neg, luek +3; ucx <10k GPC -Bcx Neg -CXR: Suspected atelectasis or scarring right Fever Leukocytosis,recurrent DKA RIVKA, improving hx of recent sepsis 2ry to UTI and bacteremia 07/08/18 UCx - P.a. MDR and Providencia 07/08/18 BCx ESBL Proteus and K. pneumo Dm2 HLD MDD with suicidal attempts in the past w/ resultant chronic encephalopathy CAD/NH BPH anemia asthma colonic polyps ESRD s/p renal and pancreas tx ~10 yrs ago now CKD 4 ConS bacteremia/line infection urinary retention s/p suprapubic catheter 09/2017 recurrent hematuria multiple hospital admissions recurrent UTI DNR Plan: -Continue Clindamycin #7/10-14 for infected IV site -08/02 SP Meropenem d# 5 07/29 SP one dose Amikacin -07/22 SP Meropenem, #14 -Repeate cultuers, CXR - f/u cx -Monitor CBC/CMP, temperatures -Sx f/u -wound care -Cdiff if diarrhea Subjective Allergies: Coded Allergies: CEFEPIME (Verified Allergy, Intermediate, Rash, 03/01/18) Tolerates Carbapenem Subjective Tm 101.8 wbc at 14 R forearm swelling significant improvement Objective Vital Signs Last 24 Hour Vital Signs Date Time Temp Pulse Resp B/P (MAP) Pulse Ox O2 Delivery O2 Flow Rate FiO2 08/24/18 16:00 98.5 95 20 110/52 97 Room Air 08/24/18 14:02 98.5 08/24/18 12:00 101.5 108 20 120/68 Room Air 08/24/18 08:00 Room Air 08/24/18 08:00 101.0 102 19 145/87 Room Air 08/24/18 04:00 98.0 78 17 134/80 Room Air 08/24/18 00:00 98.4 100 17 131/70 Room Air 08/23/18 22:26 Room Air 08/23/18 20:00 98.6 104 18 128/74 Room Air Height (Feet): 6 Height (Inches): 0.00 Weight (Pounds): 148 Objective Status: awake HEENT: atraumatic Lungs: chest wall tender Heart: HR/BP stable Abdomen: soft, non-tender Extremities: no C/C/E Decubiti: location Laboratory Tests Test 08/24/18 12:00 White Blood Count 14.9 K/UL (4.8-10.8) H Red Blood Count 2.94 M/UL (4.70-6.10) L Hemoglobin 9.2 G/DL (14.2-18.0) L Hematocrit 29.1 % (42.0-52.0) L Mean Corpuscular Volume 99 FL (80-99) Mean Corpuscular Hemoglobin 31.2 PG (27.0-31.0) H Mean Corpuscular Hemoglobin Concent 31.5 G/DL (32.0-36.0) L Red Cell Distribution Width 17.9 % (11.6-14.8) H Platelet Count 320 K/UL (150-450) Mean Platelet Volume 5.0 FL (6.5-10.1) L Neutrophils (%) (Auto) % (45.0-75.0) Lymphocytes (%) (Auto) % (20.0-45.0) Monocytes (%) (Auto) % (1.0-10.0) Eosinophils (%) (Auto) % (0.0-3.0) Basophils (%) (Auto) % (0.0-2.0) Differential Total Cells Counted 100 Neutrophils % (Manual) 91 % (45-75) H Lymphocytes % (Manual) 3 % (20-45) L Monocytes % (Manual) 4 % (1-10) Eosinophils % (Manual) 0 % (0-3) Basophils % (Manual) 0 % (0-2) Band Neutrophils 2 % (0-8) Platelet Estimate Adequate Platelet Morphology Normal Polychromasia 1+ Hypochromasia 1+ Anisocytosis 1+ Sodium Level 135 MMOL/L (136-145) L Potassium Level 5.3 MMOL/L (3.5-5.1) H Chloride Level 105 MMOL/L (98-107) Carbon Dioxide Level 13 MMOL/L (21-32) L Anion Gap 17 mmol/L (5-15) H Blood Urea Nitrogen 87 mg/dL (7-18) H Creatinine 7.7 MG/DL (0.55-1.30) H Estimat Glomerular Filtration Rate 7.1 mL/min (>60) Glucose Level 303 MG/DL (74-106) #H Calcium Level 8.5 MG/DL (8.5-10.1) Current Medications Medications (Trade) Dose Ordered Sig/Dunia Route PRN Reason Start Time Stop Time Status Last Admin Dose Admin Acetaminophen (Tylenol) 650 mg Q6H PRN ORAL Mild Pain/Temp > 100.5 08/22/18 21:00 09/21/18 20:59 08/24/18 13:32 Clindamycin HCl/ Dextrose 50 ml @ 100 mls/hr Q8HR IV 08/22/18 18:30 08/29/18 18:29 08/24/18 13:39 Dextrose (Dextrose 50%) 25 ml Q30M PRN IV Hypoglycemia 08/11/18 14:30 09/10/18 14:29 08/16/18 17:03 Dextrose (Dextrose 50%) 50 ml Q30M PRN IV Hypoglycemia 08/11/18 14:30 09/10/18 14:29 08/18/18 21:17 Duloxetine HCl (Cymbalta) 60 mg DAILY ORAL 08/18/18 09:00 09/17/18 08:59 08/24/18 09:22 Epoetin Jose (Epoetin Jose-EPBX(NON ESRD)) 4,000 unit WED-WED-WED SUBQ 08/24/18 21:00 09/21/18 20:59 Heparin Sodium (Porcine) (Heparin 5000 units/ml) 5,000 units EVERY 12 HOURS SUBQ 08/11/18 21:00 08/28/18 08:59 08/24/18 09:24 Insulin Aspart (NovoLOG) BEFORE MEALS AND HS SUBQ 08/11/18 16:30 09/10/18 11:29 08/24/18 05:50 Insulin Aspart (NovoLOG) 4 units NOVOTIAC SUBQ 08/18/18 11:50 09/10/18 07:59 08/23/18 17:17 Insulin Detemir (Levemir) 9 units BID SUBQ 08/22/18 09:00 09/10/18 08:59 08/24/18 09:25 Pantoprazole (Protonix) 40 mg BIAC ORAL 08/11/18 16:30 09/10/18 16:29 08/23/18 17:15 Quetiapine Fumarate (SEROquel) 25 mg Q6H PRN ORAL For Anxiety 08/11/18 14:30 08/31/18 14:29 Quetiapine Fumarate (SEROquel) 50 mg Q12HR ORAL 08/24/18 21:00 09/23/18 20:59 Sevelamer Carbonate (Renvela) 800 mg THREE TIMES A DAY ORAL 08/13/18 09:00 09/12/18 08:59 08/24/18 13:00 Sodium Bicarbonate 100 ml/Sodium Chloride 1,100 ml @ 75 mls/hr [id number] IV 08/23/18 12:00 09/22/18 11:59 08/23/18 12:03 Vitamin B Complex/ Vit C/Folic Acid (Nephrovite) 1 tab DAILY ORAL 08/12/18 09:00 08/29/18 08:59 08/24/18 09:23 Monique Read M.D. Aug 24, 2018 17:04
--- NOTE | 2018-08-24 19:30 | NUR ---
NURSE NOTES: Patient asleep in bed, no signs of pain, not in acute respiratory distress. Instructed the use of call light. Call light and needs in reach. Bed in lowest position, lock engaged and alarm on. Will continue to monitor.
--- NOTE | 2018-08-24 19:42 | NUR ---
HAND-OFF: Report given to Cynthia RIVERA.NURSE NOTES:
[2018-08-24 20:00] VITALS: BP 172/84
[2018-08-24] MEDS ORDERED: Epoetin Alfa-EPBX (NON ESRD)4000 units/ml vial SUBQ SCH (21:00)
[2018-08-25] VITALS: BP 124/71
[2018-08-25 04:00] VITALS: BP 100/58
[2018-08-25] MEDS: NovoLOG Insulin Flexpen SUBQ SCH ×4 (06:09→11:50)
--- NOTE | 2018-08-25 06:14 | General Progress Note ---
Assessment/Plan Problem List: (1) DKA (diabetic ketoacidoses) ICD Codes: E13.10 - DKA (diabetic ketoacidoses) SNOMED: 32021134 Qualifiers: Qualified Codes: E10.10 - Type 1 diabetes mellitus with ketoacidosis without coma (2) CKD (chronic kidney disease), stage III ICD Codes: N18.3 - CKD (chronic kidney disease), stage III SNOMED: 681462855 (3) encephalopathy due to metabolic do (4) Pulmonary HTN ICD Codes: I27.0 - Pulmonary HTN SNOMED: 27969698 Assessment/Plan continue Levemir 9 units bid - do not hold without notifying me continue Novolog 4 units ac tid continue NISS ac / hs Subjective Allergies: Coded Allergies: CEFEPIME (Verified Allergy, Intermediate, Rash, 03/01/18) Tolerates Carbapenem All Systems: reviewed and negative except above Subjective events noted labile glucose Item Value Date Time Bedside Blood Glucose 181 mg/dl H 08/25/18 0609 Bedside Blood Glucose 239 mg/dl H 08/24/18 2124 Bedside Blood Glucose 328 mg/dl H 08/24/18 1740 Bedside Blood Glucose 209 mg/dl H 08/24/18 0925 Objective Last 24 Hour Vital Signs Date Time Temp Pulse Resp B/P (MAP) Pulse Ox O2 Delivery O2 Flow Rate FiO2 08/25/18 04:00 98.3 106 19 100/58 97 Room Air 08/25/18 00:00 98.7 124 19 124/71 97 Room Air 08/24/18 22:34 98.7 08/24/18 21:00 Room Air 08/24/18 20:00 100.8 128 17 172/84 99 Room Air 08/24/18 16:00 98.5 95 20 110/52 97 Room Air 08/24/18 12:00 101.5 108 20 120/68 Room Air 08/24/18 08:00 Room Air 08/24/18 08:00 101.0 102 19 145/87 Room Air Intake and Output 08/24/18 08/25/18 19:00 07:00 Intake Total 480 ml Output Total 600 ml 600 ml Balance -120 ml -600 ml Intake Oral 480 ml Output Urine Total 600 ml 600 ml Laboratory Tests 08/24/18 12:00: White Blood Count 14.9H, Red Blood Count 2.94L, Hemoglobin 9.2L, Hematocrit 29.1L, Mean Corpuscular Volume 99, Mean Corpuscular Hemoglobin 31.2H, Mean Corpuscular Hemoglobin Concent 31.5L, Red Cell Distribution Width 17.9H, Platelet Count 320, Mean Platelet Volume 5.0L, Neutrophils (%) (Auto) , Lymphocytes (%) (Auto) , Monocytes (%) (Auto) , Eosinophils (%) (Auto) , Basophils (%) (Auto) , Differential Total Cells Counted 100, Neutrophils % ( Manual) 91H, Lymphocytes % (Manual) 3L, Monocytes % (Manual) 4, Eosinophils % ( Manual) 0, Basophils % (Manual) 0, Band Neutrophils 2, Platelet Estimate Adequate, Platelet Morphology Normal, Polychromasia 1+, Hypochromasia 1+, Anisocytosis 1+, Sodium Level 135L, Potassium Level 5.3H, Chloride Level 105, Carbon Dioxide Level 13L, Anion Gap 17H, Blood Urea Nitrogen 87H, Creatinine 7.7H, Estimat Glomerular Filtration Rate 7.1, Glucose Level 303#H, Calcium Level 8.5 Height (Feet): 6 Height (Inches): 0.00 Weight (Pounds): 148 General Appearance: no apparent distress Neck: normal alignment Cardiovascular: normal rate Respiratory/Chest: lungs clear Abdomen: normal bowel sounds Objective Current Medications Medications (Trade) Dose Ordered Sig/Dunia Route PRN Reason Start Time Stop Time Status Last Admin Dose Admin Acetaminophen (Tylenol) 650 mg Q6H PRN ORAL Mild Pain/Temp > 100.5 08/22/18 21:00 09/21/18 20:59 08/24/18 22:04 Clindamycin HCl/ Dextrose 50 ml @ 100 mls/hr Q8HR IV 08/22/18 18:30 08/29/18 18:29 08/25/18 06:06 Dextrose (Dextrose 50%) 25 ml Q30M PRN IV Hypoglycemia 08/11/18 14:30 09/10/18 14:29 08/16/18 17:03 Dextrose (Dextrose 50%) 50 ml Q30M PRN IV Hypoglycemia 08/11/18 14:30 09/10/18 14:29 08/18/18 21:17 Duloxetine HCl (Cymbalta) 60 mg DAILY ORAL 08/18/18 09:00 09/17/18 08:59 08/24/18 09:22 Epoetin Jose (Epoetin Jose-EPBX(NON ESRD)) 4,000 unit WED-WED-WED SUBQ 08/24/18 21:00 09/21/18 20:59 08/24/18 21:22 Heparin Sodium (Porcine) (Heparin 5000 units/ml) 5,000 units EVERY 12 HOURS SUBQ 08/11/18 21:00 08/28/18 08:59 08/24/18 21:22 Insulin Aspart (NovoLOG) BEFORE MEALS AND HS SUBQ 08/11/18 16:30 09/10/18 11:29 08/25/18 06:09 Insulin Aspart (NovoLOG) 4 units NOVOTIAC SUBQ 08/18/18 11:50 09/10/18 07:59 08/23/18 17:17 Insulin Detemir (Levemir) 9 units BID SUBQ 08/22/18 09:00 09/10/18 08:59 08/24/18 17:40 Pantoprazole (Protonix) 40 mg BIAC ORAL 08/11/18 16:30 09/10/18 16:29 08/25/18 06:06 Quetiapine Fumarate (SEROquel) 25 mg Q6H PRN ORAL For Anxiety 08/11/18 14:30 08/31/18 14:29 Quetiapine Fumarate (SEROquel) 50 mg Q12HR ORAL 08/24/18 21:00 09/23/18 20:59 08/24/18 21:20 Sevelamer Carbonate (Renvela) 800 mg THREE TIMES A DAY ORAL 08/13/18 09:00 09/12/18 08:59 08/24/18 17:33 Sodium Bicarbonate 100 ml/Sodium Chloride 1,100 ml @ 75 mls/hr [id number] IV 08/23/18 12:00 09/22/18 11:59 08/24/18 17:33 Vitamin B Complex/ Vit C/Folic Acid (Nephrovite) 1 tab DAILY ORAL 08/12/18 09:00 08/29/18 08:59 08/24/18 09:23 Modesto Jacques MD Aug 25, 2018 06:14
--- NOTE | 2018-08-25 06:36 | NUR ---
NURSE NOTES: A total of 4 units Novolog from scheduled and ACHS dose for this AM. Patient doesn't consume 50% of the meal.
--- NOTE | 2018-08-25 07:25 | NUR ---
HAND-OFF: Report given to NICOLE Mak.
--- NOTE | 2018-08-25 07:33 | NUR ---
Received patient from Mary RIVERA, patient is up in bed, no distress noted, bed is locked and in lowest position, call light within reach, will continue to monitor.
[2018-08-25 08:00] VITALS: BP 143/83
[2018-08-25] MEDS: Sodium Bicarbonate 100 ML in 1/2 NS 1000ml 1,000 ML IV SCH (08:00)
[2018-08-25 08:18] LABS: HEMATOCRIT 28.3 % (42.0-52.0); HEMOGLOBIN 9.2 G/DL (14.2-18.0); MEAN CORPUSCULAR VOLUME 97 FL (80-99); PLATELET COUNT 303 K/UL (150-450); RED BLOOD COUNT 2.91 M/UL (4.70-6.10); WHITE BLOOD COUNT 12.7 K/UL (4.8-10.8)
[2018-08-25 08:35] LABS: ALANINE AMINOTRANSFERASE 11 U/L (12-78); ALBUMIN 1.9 G/DL (3.4-5.0); ALBUMIN/GLOBULIN RATIO 0.4 (1.0-2.7); ALKALINE PHOSPHATASE 98 U/L (46-116); ANION GAP 16 mmol/L (5-15); ASPARTATE AMINO TRANSFERASE 10 U/L (15-37); BILIRUBIN,TOTAL 0.7 MG/DL (0.2-1.0); BLOOD UREA NITROGEN 88 mg/dL (7-18); CARBON DIOXIDE 14 MMOL/L (21-32); CHLORIDE 106 MMOL/L (98-107); CREATININE 7.7 MG/DL (0.55-1.30); POTASSIUM 4.8 MMOL/L (3.5-5.1); SODIUM 136 MMOL/L (136-145)
--- NOTE | 2018-08-25 08:54 | NUR ---
RADIOLOGY DEPT CHEST X-RAY DONE.-P.DYE
[2018-08-25] MEDS: Nephrovite tab (Rena-Vite) ORAL SCH (09:48)
[2018-08-25] MEDS: DULoxetine 30mg cap ORAL SCH (09:48)
[2018-08-25] MEDS: Heparin 5000 units/ml inj SUBQ SCH (09:50)
[2018-08-25] MEDS: Levemir Flexpen SUBQ SCH (09:51)
--- NOTE | 2018-08-25 10:13 | Urology Progress Note ---
Assessment/Plan Assessment/Plan 1. Urinary retention. 2. Neurogenic bladder. 3. History of chronic suprapubic tube. 4. BPH history. 5. History of end-stage renal disease. 6. Hematuria. 7. Pyuria. 8. Proteinuria. 9. Renal cysts. monitor clinically keep sp tube, last exchanged 2/5 hand irrigated and do PRN cath secured to pt's leg s/p abx recheck urine cx at some point HD if pt allows Subjective Allergies: Coded Allergies: CEFEPIME (Verified Allergy, Intermediate, Rash, 03/01/18) Tolerates Carbapenem Subjective all noted, new sp tube draining well, occasional leakage Objective Last 24 Hour Vital Signs Date Time Temp Pulse Resp B/P (MAP) Pulse Ox O2 Delivery O2 Flow Rate FiO2 08/25/18 08:00 98.1 110 18 143/83 95 Room Air 08/25/18 04:00 98.3 106 19 100/58 97 Room Air 08/25/18 00:00 98.7 124 19 124/71 97 Room Air 08/24/18 22:34 98.7 08/24/18 21:00 Room Air 08/24/18 20:00 100.8 128 17 172/84 99 Room Air 08/24/18 16:00 98.5 95 20 110/52 97 Room Air 08/24/18 12:00 101.5 108 20 120/68 Room Air Intake and Output 08/24/18 08/25/18 19:00 07:00 Intake Total 555 ml 725 ml Output Total 600 ml 600 ml Balance -45 ml 125 ml Intake Oral 480 ml IV Total 75 ml 725 ml Output Urine Total 600 ml 600 ml Microbiology Date/Time Source Procedure Growth Status 07/29/18 05:29 Blood Blood Culture - Final NO GROWTH AFTER 5 DAYS Complete 07/29/18 00:30 Nasal Nares MRSA Culture - Final Staphylococcus Aureus - Mrsa Complete 07/29/18 05:15 Urine,Clean Catch Urine Culture - Final Gram Positive Cocci Complete 07/29/18 00:30 Rectum VRE Culture - Final Enterococcus Faecalis - Vre Enterococcus Faecium - Vre Complete Current Medications Medications (Trade) Dose Ordered Sig/Dunia Route PRN Reason Start Time Stop Time Status Last Admin Dose Admin Acetaminophen (Tylenol) 650 mg Q6H PRN ORAL Mild Pain/Temp > 100.5 08/22/18 21:00 09/21/18 20:59 08/24/18 22:04 Clindamycin HCl/ Dextrose 50 ml @ 100 mls/hr Q8HR IV 08/22/18 18:30 08/29/18 18:29 08/25/18 06:06 Dextrose (Dextrose 50%) 25 ml Q30M PRN IV Hypoglycemia 08/11/18 14:30 09/10/18 14:29 08/16/18 17:03 Dextrose (Dextrose 50%) 50 ml Q30M PRN IV Hypoglycemia 08/11/18 14:30 09/10/18 14:29 08/18/18 21:17 Duloxetine HCl (Cymbalta) 60 mg DAILY ORAL 08/18/18 09:00 09/17/18 08:59 08/25/18 09:48 Epoetin Jose (Epoetin Jose-EPBX(NON ESRD)) 4,000 unit WED-WED-WED SUBQ 08/24/18 21:00 09/21/18 20:59 08/24/18 21:22 Heparin Sodium (Porcine) (Heparin 5000 units/ml) 5,000 units EVERY 12 HOURS SUBQ 08/11/18 21:00 08/28/18 08:59 08/25/18 09:50 Insulin Aspart (NovoLOG) BEFORE MEALS AND HS SUBQ 08/11/18 16:30 09/10/18 11:29 08/25/18 06:09 Insulin Aspart (NovoLOG) 4 units NOVOTIAC SUBQ 08/18/18 11:50 09/10/18 07:59 08/25/18 06:26 Insulin Detemir (Levemir) 9 units BID SUBQ 08/22/18 09:00 09/10/18 08:59 08/25/18 09:51 Pantoprazole (Protonix) 40 mg BIAC ORAL 08/11/18 16:30 09/10/18 16:29 08/25/18 06:06 Quetiapine Fumarate (SEROquel) 25 mg Q6H PRN ORAL For Anxiety 08/11/18 14:30 08/31/18 14:29 Quetiapine Fumarate (SEROquel) 50 mg Q12HR ORAL 08/24/18 21:00 09/23/18 20:59 08/25/18 09:48 Sevelamer Carbonate (Renvela) 800 mg THREE TIMES A DAY ORAL 08/13/18 09:00 09/12/18 08:59 08/25/18 09:48 Sodium Bicarbonate 100 ml/Sodium Chloride 1,100 ml @ 75 mls/hr [id number] IV 08/23/18 12:00 09/22/18 11:59 08/24/18 17:33 Vitamin B Complex/ Vit C/Folic Acid (Nephrovite) 1 tab DAILY ORAL 08/12/18 09:00 08/29/18 08:59 08/25/18 09:48 Laboratory Tests 08/24/18 12:00: White Blood Count 14.9H, Red Blood Count 2.94L, Hemoglobin 9.2L, Hematocrit 29.1L, Mean Corpuscular Volume 99, Mean Corpuscular Hemoglobin 31.2H, Mean Corpuscular Hemoglobin Concent 31.5L, Red Cell Distribution Width 17.9H, Platelet Count 320, Mean Platelet Volume 5.0L, Neutrophils (%) (Auto) , Lymphocytes (%) (Auto) , Monocytes (%) (Auto) , Eosinophils (%) (Auto) , Basophils (%) (Auto) , Differential Total Cells Counted 100, Neutrophils % ( Manual) 91H, Lymphocytes % (Manual) 3L, Monocytes % (Manual) 4, Eosinophils % ( Manual) 0, Basophils % (Manual) 0, Band Neutrophils 2, Platelet Estimate Adequate, Platelet Morphology Normal, Polychromasia 1+, Hypochromasia 1+, Anisocytosis 1+, Sodium Level 135L, Potassium Level 5.3H, Chloride Level 105, Carbon Dioxide Level 13L, Anion Gap 17H, Blood Urea Nitrogen 87H, Creatinine 7.7H, Estimat Glomerular Filtration Rate 7.1, Glucose Level 303#H, Calcium Level 8.5 08/25/18 08:05: White Blood Count 12.7H, Red Blood Count 2.91L, Hemoglobin 9.2L, Hematocrit 28.3L, Mean Corpuscular Volume 97, Mean Corpuscular Hemoglobin 31.6H, Mean Corpuscular Hemoglobin Concent 32.5, Red Cell Distribution Width 18.0H, Platelet Count 303, Mean Platelet Volume 5.8L, Neutrophils (%) (Auto) , Lymphocytes (%) (Auto) , Monocytes (%) (Auto) , Eosinophils (%) (Auto) , Basophils (%) (Auto) , Differential Total Cells Counted 100, Neutrophils % ( Manual) 92H, Lymphocytes % (Manual) 4L, Monocytes % (Manual) 4, Eosinophils % ( Manual) 0, Basophils % (Manual) 0, Band Neutrophils 0, Platelet Estimate Adequate, Platelet Morphology Normal, Anisocytosis 1+, Sodium Level 136, Potassium Level 4.8, Chloride Level 106, Carbon Dioxide Level 14L, Anion Gap 16H , Blood Urea Nitrogen 88H, Creatinine 7.7H, Estimat Glomerular Filtration Rate 7.1, Glucose Level 194#H, Calcium Level 9.0, Total Bilirubin 0.7, Aspartate Amino Transf (AST/SGOT) 10L, Alanine Aminotransferase (ALT/SGPT) 11L, Alkaline Phosphatase 98, Total Protein 6.7, Albumin 1.9L, Globulin 4.8, Albumin/Globulin Ratio 0.4L Height (Feet): 6 Height (Inches): 0.00 Weight (Pounds): 148 Objective exam stable Ye Rios MD Aug 25, 2018 10:13
[2018-08-25] MEDS ORDERED: SEROQUEL25 MG ORAL ×2 (10:54)
[2018-08-25] MEDS ORDERED: CLEOCIN HCL300 MG PO (10:54)
[2018-08-25] MEDS ORDERED: LEVEMIR FL100 UNIT/1 SUBQ (10:54)
[2018-08-25] MEDS ORDERED: PROTONIX40 MG ORAL (10:54)
[2018-08-25] MEDS ORDERED: NOVOLOG100 UNITS1 SUBQ (10:54)
[2018-08-25] MEDS ORDERED: CYMBALTA30 MG ORAL (10:54)
--- NOTE | 2018-08-25 11:01 | NUR ---
[employer] REPAIRER NOTES PT ACCEPTED TO [facility] [address] TO TRANSPORT PT WITH ETA 1230. Addendum: 08/25/18 at 1102 by KISHORE WILLIS RN RN ROOM 28 BED B
--- NOTE | 2018-08-25 11:36 | Nephrology Progress Note ---
Assessment/Plan Problem List: (1) Acute on chronic renal failure (2) Bladder outlet obstruction (3) Anemia in chronic kidney disease (4) BPH (benign prostatic hypertrophy) (5) DKA (diabetic ketoacidoses) (6) Encephalopathy acute Assessment High Glucose now improved ESRD , in need of dialysis , refuses- presents with high K Encephalopathy , Metabolic Acidosis , Uremic and Diabetic Sever Anemia: Mixed etiology HTn, but presents with low BP Supra Pubic Cath, h/o UTI, BPH Psych disease CAD, elevated Troponin I s/p DKAs Plan Kayexelate for high K as needed change IV with sodium bicarb Transfuse as needed Sugar control will do poorly in view of no dialysis plans DNR per orders DOES NOT AGREE TO DIALYSIS TREATMENT DC planning in process poor prognosis Subjective ROS Limited/Unobtainable: No Constitutional: Reports: malaise Objective Objective Last 24 Hour Vital Signs Date Time Temp Pulse Resp B/P (MAP) Pulse Ox O2 Delivery O2 Flow Rate FiO2 08/25/18 08:00 Room Air 08/25/18 08:00 98.1 110 18 143/83 95 Room Air 08/25/18 04:00 98.3 106 19 100/58 97 Room Air 08/25/18 00:00 98.7 124 19 124/71 97 Room Air 08/24/18 22:34 98.7 08/24/18 21:00 Room Air 08/24/18 20:00 100.8 128 17 172/84 99 Room Air 08/24/18 16:00 98.5 95 20 110/52 97 Room Air 08/24/18 12:00 101.5 108 20 120/68 Room Air Intake and Output 08/24/18 08/25/18 19:00 07:00 Intake Total 555 ml 725 ml Output Total 600 ml 600 ml Balance -45 ml 125 ml Intake Oral 480 ml IV Total 75 ml 725 ml Output Urine Total 600 ml 600 ml Laboratory Tests 08/24/18 12:00: White Blood Count 14.9H, Red Blood Count 2.94L, Hemoglobin 9.2L, Hematocrit 29.1L, Mean Corpuscular Volume 99, Mean Corpuscular Hemoglobin 31.2H, Mean Corpuscular Hemoglobin Concent 31.5L, Red Cell Distribution Width 17.9H, Platelet Count 320, Mean Platelet Volume 5.0L, Neutrophils (%) (Auto) , Lymphocytes (%) (Auto) , Monocytes (%) (Auto) , Eosinophils (%) (Auto) , Basophils (%) (Auto) , Differential Total Cells Counted 100, Neutrophils % ( Manual) 91H, Lymphocytes % (Manual) 3L, Monocytes % (Manual) 4, Eosinophils % ( Manual) 0, Basophils % (Manual) 0, Band Neutrophils 2, Platelet Estimate Adequate, Platelet Morphology Normal, Polychromasia 1+, Hypochromasia 1+, Anisocytosis 1+, Sodium Level 135L, Potassium Level 5.3H, Chloride Level 105, Carbon Dioxide Level 13L, Anion Gap 17H, Blood Urea Nitrogen 87H, Creatinine 7.7H, Estimat Glomerular Filtration Rate 7.1, Glucose Level 303#H, Calcium Level 8.5 08/25/18 08:05: White Blood Count 12.7H, Red Blood Count 2.91L, Hemoglobin 9.2L, Hematocrit 28.3L, Mean Corpuscular Volume 97, Mean Corpuscular Hemoglobin 31.6H, Mean Corpuscular Hemoglobin Concent 32.5, Red Cell Distribution Width 18.0H, Platelet Count 303, Mean Platelet Volume 5.8L, Neutrophils (%) (Auto) , Lymphocytes (%) (Auto) , Monocytes (%) (Auto) , Eosinophils (%) (Auto) , Basophils (%) (Auto) , Differential Total Cells Counted 100, Neutrophils % ( Manual) 92H, Lymphocytes % (Manual) 4L, Monocytes % (Manual) 4, Eosinophils % ( Manual) 0, Basophils % (Manual) 0, Band Neutrophils 0, Platelet Estimate Adequate, Platelet Morphology Normal, Anisocytosis 1+, Sodium Level 136, Potassium Level 4.8, Chloride Level 106, Carbon Dioxide Level 14L, Anion Gap 16H , Blood Urea Nitrogen 88H, Creatinine 7.7H, Estimat Glomerular Filtration Rate 7.1, Glucose Level 194#H, Calcium Level 9.0, Total Bilirubin 0.7, Aspartate Amino Transf (AST/SGOT) 10L, Alanine Aminotransferase (ALT/SGPT) 11L, Alkaline Phosphatase 98, Total Protein 6.7, Albumin 1.9L, Globulin 4.8, Albumin/Globulin Ratio 0.4L Height (Feet): 6 Height (Inches): 0.00 Weight (Pounds): 148 General Appearance: no apparent distress Cardiovascular: regular rhythm Respiratory/Chest: decreased breath sounds Abdomen: soft Objective no change Luis Chambers MD Aug 25, 2018 11:36
--- NOTE | 2018-08-25 11:36 | Diagnostic Imaging Report ---
Indication: Cough Technique: One view of the chest Comparison: 08/01/2018 Findings: Lungs and pleural spaces are clear. Heart size is normal. Previously demonstrated right basilar opacity is no longer evident. No other significant change. Patient is rotated to the right. Note is made of healed left rib fracture deformities. Impression: No acute process
--- NOTE | 2018-08-25 12:23 | NUR ---
NURSE NOTES: patient discharged per doctor order, IV removed, ID band removed, no belongings noted, report given to ambulance personell and report called in to [facility] [address] and given to Lorene RIVERA, no distress noted, patient transported via ambulance.
--- NOTE | 2018-08-25 12:56 | Pulmonology Progress Note ---
Assessment/Plan Problems: (1) Encephalopathy acute (2) DKA (diabetic ketoacidoses) (3) Anemia in chronic kidney disease (4) CKD (chronic kidney disease), stage III (5) Major depressive disorder (6) Bladder outlet obstruction (7) Suprapubic catheter Assessment/Plan no new complains doing better again creatinine lower eating better Bs better controlled all reviewed check electrolytes continue DNR dvt prophylaxis All medications and treatment were reviewed.med recon done Subjective ROS Limited/Unobtainable: No Constitutional: Reports: no symptoms HEENT: Repors: no symptoms Allergies: Coded Allergies: CEFEPIME (Verified Allergy, Intermediate, Rash, 03/01/18) Tolerates Carbapenem Objective Last 24 Hour Vital Signs Date Time Temp Pulse Resp B/P (MAP) Pulse Ox O2 Delivery O2 Flow Rate FiO2 08/25/18 08:00 Room Air 08/25/18 08:00 98.1 110 18 143/83 95 Room Air 08/25/18 04:00 98.3 106 19 100/58 97 Room Air 08/25/18 00:00 98.7 124 19 124/71 97 Room Air 08/24/18 22:34 98.7 08/24/18 21:00 Room Air 08/24/18 20:00 100.8 128 17 172/84 99 Room Air 08/24/18 16:00 98.5 95 20 110/52 97 Room Air Intake and Output 08/24/18 08/25/18 19:00 07:00 Intake Total 555 ml 725 ml Output Total 600 ml 600 ml Balance -45 ml 125 ml Intake Oral 480 ml IV Total 75 ml 725 ml Output Urine Total 600 ml 600 ml Objective General Appearance: WD/WN HEENT: normocephalic, atraumatic, anicteric Respiratory/Chest: chest wall non-tender, lungs clear Breasts: no masses Cardiovascular: normal peripheral pulses, normal rate Abdomen: normal bowel sounds, soft, non tender Extremities: no cyanosis Skin: no rash 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 Lymphatic: no neck adenopathy Laboratory Tests 08/25/18 08:05: White Blood Count 12.7H, Red Blood Count 2.91L, Hemoglobin 9.2L, Hematocrit 28.3L, Mean Corpuscular Volume 97, Mean Corpuscular Hemoglobin 31.6H, Mean Corpuscular Hemoglobin Concent 32.5, Red Cell Distribution Width 18.0H, Platelet Count 303, Mean Platelet Volume 5.8L, Neutrophils (%) (Auto) , Lymphocytes (%) (Auto) , Monocytes (%) (Auto) , Eosinophils (%) (Auto) , Basophils (%) (Auto) , Differential Total Cells Counted 100, Neutrophils % ( Manual) 92H, Lymphocytes % (Manual) 4L, Monocytes % (Manual) 4, Eosinophils % ( Manual) 0, Basophils % (Manual) 0, Band Neutrophils 0, Platelet Estimate Adequate, Platelet Morphology Normal, Anisocytosis 1+, Sodium Level 136, Potassium Level 4.8, Chloride Level 106, Carbon Dioxide Level 14L, Anion Gap 16H , Blood Urea Nitrogen 88H, Creatinine 7.7H, Estimat Glomerular Filtration Rate 7.1, Glucose Level 194#H, Calcium Level 9.0, Total Bilirubin 0.7, Aspartate Amino Transf (AST/SGOT) 10L, Alanine Aminotransferase (ALT/SGPT) 11L, Alkaline Phosphatase 98, Total Protein 6.7, Albumin 1.9L, Globulin 4.8, Albumin/Globulin Ratio 0.4L Esdras Delgado MD Aug 25, 2018 12:56
--- NOTE | 2018-08-25 17:12 | Surgery Progress Note ---
Surgery Progress Note Subjective Additional Comments late entry as just finished operating patient seen earlier wound near complete resolution non tender no drainage cellulitis almost resolved completely Objective Last 24 Hour Vital Signs Date Time Temp Pulse Resp B/P (MAP) Pulse Ox O2 Delivery O2 Flow Rate FiO2 08/25/18 08:00 Room Air 08/25/18 08:00 98.1 110 18 143/83 95 Room Air 08/25/18 04:00 98.3 106 19 100/58 97 Room Air 08/25/18 00:00 98.7 124 19 124/71 97 Room Air 08/24/18 22:34 98.7 08/24/18 21:00 Room Air 08/24/18 20:00 100.8 128 17 172/84 99 Room Air I&O Intake and Output 08/24/18 08/25/18 19:00 07:00 Intake Total 555 ml 725 ml Output Total 600 ml 600 ml Balance -45 ml 125 ml Intake Oral 480 ml IV Total 75 ml 725 ml Output Urine Total 600 ml 600 ml Dressing: dry Wound: clean Drains: none Cardiovascular: RSR Respiratory: clear Abdomen: soft, flat Extremities: no edema, no tenderness, no cyanosis Laboratory Tests Test 08/25/18 08:05 White Blood Count 12.7 K/UL (4.8-10.8) H Red Blood Count 2.91 M/UL (4.70-6.10) L Hemoglobin 9.2 G/DL (14.2-18.0) L Hematocrit 28.3 % (42.0-52.0) L Mean Corpuscular Volume 97 FL (80-99) Mean Corpuscular Hemoglobin 31.6 PG (27.0-31.0) H Mean Corpuscular Hemoglobin Concent 32.5 G/DL (32.0-36.0) Red Cell Distribution Width 18.0 % (11.6-14.8) H Platelet Count 303 K/UL (150-450) Mean Platelet Volume 5.8 FL (6.5-10.1) L Neutrophils (%) (Auto) % (45.0-75.0) Lymphocytes (%) (Auto) % (20.0-45.0) Monocytes (%) (Auto) % (1.0-10.0) Eosinophils (%) (Auto) % (0.0-3.0) Basophils (%) (Auto) % (0.0-2.0) Differential Total Cells Counted 100 Neutrophils % (Manual) 92 % (45-75) H Lymphocytes % (Manual) 4 % (20-45) L Monocytes % (Manual) 4 % (1-10) Eosinophils % (Manual) 0 % (0-3) Basophils % (Manual) 0 % (0-2) Band Neutrophils 0 % (0-8) Platelet Estimate Adequate Platelet Morphology Normal Anisocytosis 1+ Sodium Level 136 MMOL/L (136-145) Potassium Level 4.8 MMOL/L (3.5-5.1) Chloride Level 106 MMOL/L (98-107) Carbon Dioxide Level 14 MMOL/L (21-32) L Anion Gap 16 mmol/L (5-15) H Blood Urea Nitrogen 88 mg/dL (7-18) H Creatinine 7.7 MG/DL (0.55-1.30) H Estimat Glomerular Filtration Rate 7.1 mL/min (>60) Glucose Level 194 MG/DL (74-106) #H Calcium Level 9.0 MG/DL (8.5-10.1) Total Bilirubin 0.7 MG/DL (0.2-1.0) Aspartate Amino Transf (AST/SGOT) 10 U/L (15-37) L Alanine Aminotransferase (ALT/SGPT) 11 U/L (12-78) L Alkaline Phosphatase 98 U/L (46-116) Total Protein 6.7 G/DL (6.4-8.2) Albumin 1.9 G/DL (3.4-5.0) L Globulin 4.8 g/dL Albumin/Globulin Ratio 0.4 (1.0-2.7) L Plan Problems: (1) Cellulitis of right arm Assessment & Plan: cellulitis of right wrist after IV infiltrated open are that spontaneously drained prior no significant fluctuance noted ulcerated 3mm area with fibrinous debris at base improving without issues okay to keep open to air now that no longer draining resolved d/c okay from surgical standpoint no acute surgical intervention planned thank you will follow with Jcarlos Kaba Aug 25, 2018 17:12
--- NOTE | 2018-08-26 16:14 | Discharge Summary ---
Discharge Summary Discharge Summary _ DATE OF ADMISSION: 07/28/2018 DATE OF DISCHARGE: 08/25/2018 CONSULTANTS: Dr. 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 The patient underwent bilateral nephrectomy on 06/28/2015 at [facility]. Patient refused dialysis. Patient is DNR/DNI per [facility]. The patient presented to ED via EMS for evaluation of hyperglycemia. There was no fever or vomiting. Patient had an indwelling suprapubic catheter. On evaluation, vital signs were stable. Suprapubic catheter was replaced at ED using sterile condition. Blood work showed WBC elevated to 14. Hemoglobin was 10, hematocrit 32. Potassium was elevated to 6.3. BUN 23, creatinine 9. Lactic acid was 2.4. Glucose was elevated to 616. Anion gap 19. ABG showed pH of 7, CO2 17, bicarb 5. Troponin was 0.106. ProBNP 5666. Urinalysis showed 3+ protein, 4+ glucose, 2+ ketone, 5+ blood, negative nitrite, 3+ leukocyte esterase, 5-10 RBC, too many to count WBC and moderate amount of bacteria. He was given IV hydration. He was started on IV antibiotic. He was given aspirin. He was given an amp of bicarb. He was started on insulin drip. He was then admitted to ICU for DKA, hyperkalemia, UTI, encephalopathy and renal failure. He was continued on insulin drip. Blood glucose was monitored. He was followed by consumer loan processor. Neurologist was consulted. Patient has end-stage renal disease and with hyperkalemia. Patient did not agree to dialysis treatment. Psychiatrist was consulted. He had encephalopathy and major depressive disorder. He was continued on Cymbalta. He was given Seroquel prn agitation. ID was consulted. Patient had severe sepsis, likely secondary to UTI. He was started on meropenem and was given one dose amikacin pending culture results. There was leakage noted from the suprapubic tube. Urologist was consulted. Suprapubic tube was irrigated. Leakage was assessed to be possibly from bladder spasms. On 08/01/2018, anion gap closed. Insulin drip was discontinued. He was given Levemir twice daily. He was placed on NovoLog before meals and sliding scale. Suprapubic catheter was also replaced by urologist. On 08/02/2018, he was transferred out of ICU. He was noted to have anemia. He was given Epogen for anemia. Patient had labile blood glucose. Insulin doses were adjusted. Venous duplex of bilateral arm showed patency of the internal jugular, subclavian, axillary and brachial vein. Imaging also revealed patency of the left cephalic, right and left basilic vein. Right cephalic vein was occluded. AV fistula imaging revealed an occluded arteriovenous fistula at the upper arm fossa level. Blood culture was negative. Urine culture with gram-positive cocci. He completed 5 doses of meropenem, he was monitored off antibiotic treatment. He was referred back to alf, however, was unable to go back to [facility]. He was referred to other snfs. On 08/10/2018, he was transferred back to ICU. Glucose was 900. He was restarted on insulin drip. He also was given Kayexalate for elevated potassium. On 08/11/2018 he was ordered transfer out of ICU. Blood glucose was better controlled. He was noted to have right wrist IV site infection. There was erythema at former infiltrated IV site. He was started on Bactrim DS. Dr. Martinez was consulted. Patient had cellulitis of the right wrist that were open and spontaneously drained. There was no significant fluctuance noted. There was an ulcerated 3 mm area with fibrinous debris at the base. There was no acute surgical intervention necessary. He was given wound care. He was recommended warm compress. Bactrim was discontinued. He was given clindamycin. Wounds eventually healed with near complete resolution. There was no drainage. Cellulitis almost resolved. Okay to leave open to air. [facility] He was eventually discharged to snf. FINAL DIAGNOSES: Diabetic ketoacidosis Acute toxic metabolic encephalopathy due to DKA Diabetes type 1 Diabetic retinopathy with left eye blindness Anemia of chronic kidney disease End-stage renal disease, in need of dialysis, patient refused Acute kidney injury, improving Major depressive disorder with prior suicide attempt Bladder outlet obstruction Suprapubic catheter status post change on 08/01/2018 BPH Coronary artery disease, elevated troponin Diabetic acidosis Uremic acidosis Hyperkalemia Urinary retention Neurogenic bladder Hematuria Pyuria Proteinuria Renal cyst Pulmonary hypertension Right wrist IV site infection Hyperlipidemia Status post renal and pancreatic transplant Recurrent UTI DNR Right arm cellulitis Secondary hyperparathyroidism with vitamin D deficiency DISPOSITION: Patient was discharged to a SNF. DISCHARGE MEDICATIONS: Refer to Discharge Medication List. Continue clindamycin for 7 more days. I have been assigned to complete a discharge summary on this account, I was not involved with the patient's management. Lyn Diaz NP Aug 26, 2018 16:14
== END 2018-08-25 12:33 | DRG 871 ==
LOC: EDBD 20:01 → EMR 20:18 → ICU 20:51 → EDBEDREQ 21:41 → EDBEDREQSVC 22:53 → EDBEDREQTM 22:53 → EDBEDREQ 22:53 → 2W 08-01 11:45 → 4E 08-03 06:54 → ICU 08-10 18:35 → 4E 08-11 13:54
DX: A41.9 Sepsis, unspecified organism (principal); E10.10 Type 1 diabetes mellitus with ketoacidosis without coma; G92 Toxic encephalopathy; J18.9 Pneumonia, unspecified organism; N17.9 Acute kidney failure, unspecified; T86.11 Kidney transplant rejection; N18.4 Chronic kidney disease, stage 4 (severe); N39.0 Urinary tract infection, site not specified; N13.8 Other obstructive and reflux uropathy; L03.113 Cellulitis of right upper limb; E46 Unspecified protein-calorie malnutrition; R65.20 Severe sepsis without septic shock; Z79.4 Long term (current) use of insulin; F03.90 Unspecified dementia, unspecified severity, without behavioral disturbance, psychotic disturbance, mood disturbance, and anxiety; I12.9 Hypertensive chronic kidney disease with stage 1 through stage 4 chronic kidney disease, or unspecified chronic kidney disease; E10.22 Type 1 diabetes mellitus with diabetic chronic kidney disease; Z66 Do not resuscitate; I25.10 Atherosclerotic heart disease of native coronary artery without angina pectoris; F32.9 Major depressive disorder, single episode, unspecified; N40.1 Benign prostatic hyperplasia with lower urinary tract symptoms; R33.8 Other retention of urine; N31.9 Neuromuscular dysfunction of bladder, unspecified; R31.9 Hematuria, unspecified; I27.20 Pulmonary hypertension, unspecified; D63.1 Anemia in chronic kidney disease; J45.909 Unspecified asthma, uncomplicated; K63.5 Polyp of colon; Z68.20 Body mass index [BMI] 20.0-20.9, adult; L89.219 Pressure ulcer of right hip, unspecified stage
CPT/HCPCS: 36415; 36600; 51702; 71045; 80048; 80053; 80076; 80150; 81001; 81003; 82009; 82010; 82550; 82607; 82728; 82746; 82803; 82947; 82962; 82977; 83540; 83550; 83605; 83735; 83880; 84100; 84484; 84550; 85007; 85025; 85610; 85651; 85730; 86140; 87040; 87081; 87086; 87181; 93005; 93970; 94664; 96361; 96365; 96368; 96375; 97802; 99291; J1815; J8499; S0077; S5561